=== PATIENT | male | born 1965 | race Caucasian/White ===

== ENCOUNTER 2023-02-18 07:32 | Outpatient (OUT) | payer BC, SELFPAY ==
[2023-02-18 08:20] LABS: Basophils Absolute Auto 0.1 10^3/uL (0.0-0.1); Basophils Percent Auto 1.2 % (0.2-2.0); Eosinophils Absolute Auto 0.4 10^3/uL (0.0-0.7); Eosinophils Percent Auto 5.7 % (0.9-7.0); Hematocrit 41.7 % (42.0-54.0); Hemoglobin 13.8 g/dL (14.0-18.0); Immature Granulocytes Abs Auto 0.01 10^3/uL (0.00-0.03); Immature Granulocytes Pct Auto 0.1 % (0.0-0.5); Lymphocytes Absolute Auto 2.6 10^3/uL (1.2-3.8); Lymphocytes Percent Auto 37.1 % (20.5-60.0); Mean Corpuscular HGB Conc 33.1 g/dL (29.9-35.2); Mean Corpuscular Hemoglobin 29.7 pg (25.9-34.0); Mean Corpuscular Volume 89.9 fL (80.0-94.0); Monocytes Absolute Auto 0.6 10^3/uL (0.3-0.8); Monocytes Percent Auto 8.1 % (1.7-12.0); Neutrophils Absolute Auto 3.3 10^3/uL (1.4-6.5); Neutrophils Percent Auto 47.8 % (43.0-75.0); Platelet Count 288 10^3/uL (150-450); Red Blood Count 4.64 10^6/uL (4.70-6.10); Red Cell Distribution Width 13.2 % (11.0-15.0); White Blood Count 6.9 10^3/uL (4.0-11.0)
[2023-02-18 08:26] LABS: Erythrocyte Sedimentation Rate 12 mm/hr (<=20)
[2023-02-18 09:12] LABS: Alanine Aminotransferase 16 U/L (16-63); Albumin Level 3.6 g/dL (3.4-5.0); Alkaline Phosphatase 76 U/L (46-116); Anion Gap 9.3; Aspartate Amino Transferase 11 U/L (15-37); BUN Creatinine Ratio 23.5; Bilirubin Total 0.5 mg/dL (0.2-1.0); Calcium 8.8 mg/dL (8.5-10.1); Carbon Dioxide 27.8 mmol/L (21.0-32.0); Chloride 105 mmol/L (98-107); Chol HDL Ratio 3.5; Cholesterol 175 mg/dL (<=200); Creatine Kinase 90 U/L (39-308); Estimated GFR (African America >60 (>=60); Estimated GFR (Non-African Ame >60 (>=60); Free T3 2.53 pg/mL (2.18-3.98); Globulin 3.5 g/dL; Glucose 101 mg/dL (74-106); HDL Cholesterol 50 mg/dL (40-60); LDL Cholesterol Calculated 113.4 mg/dL; Potassium 4.1 mmol/L (3.5-5.1); Sodium 138 mmol/L (136-145); Total Protein 7.1 g/dL (6.4-8.2); Triglycerides 58 mg/dL (<=150); VLDL CHOLESTEROL 11.6 mg/dL
[2023-02-18 09:52] LABS: Prostate Specific Antigen Scrn 0.18 ng/mL (<=4.00)
[2023-02-19 08:08] LABS: Testosterone 592 ng/dL (264-916)
== END 2023-02-18 07:33 | disposition home or self-care (01) ==
PROVIDERS: PCP Nurse Practitioner; Visit Provider Nurse Practitioner
DX: I10 Essential (primary) hypertension (principal); R53.83 Other fatigue; Z12.5 Encounter for screening for malignant neoplasm of prostate; R20.2 Paresthesia of skin
CPT/HCPCS: 36415; 80053; 80061; 81001; 82550; 82607; 82728; 83540; 84403; 84443; 84481; 85025; 85652; G0103

== ENCOUNTER 2023-09-09 09:43 | Outpatient (OUT) | payer BC, SELFPAY ==
[2023-09-09 09:59] LABS: Basophils Absolute Auto 0.1 10^3/uL (0.0-0.1); Eosinophils Absolute Auto 0.6 10^3/uL (0.0-0.7); Eosinophils Percent Auto 5.9 % (0.9-7.0); Hemoglobin 14.1 g/dL (14.0-18.0); Immature Granulocytes Abs Auto 0.02 10^3/uL (0.00-0.03); Immature Granulocytes Pct Auto 0.2 % (0.0-0.5); Lymphocytes Absolute Auto 3.5 10^3/uL (1.2-3.8); Lymphocytes Percent Auto 34.1 % (20.5-60.0); Mean Corpuscular HGB Conc 32.8 g/dL (29.9-35.2); Mean Corpuscular Hemoglobin 30.3 pg (25.9-34.0); Mean Corpuscular Volume 92.5 fL (80.0-94.0); Mean Platelet Volume 9.5 fL (9.5-13.5); Monocytes Absolute Auto 0.8 10^3/uL (0.3-0.8); Monocytes Percent Auto 7.3 % (1.7-12.0); Neutrophils Absolute Auto 5.3 10^3/uL (1.4-6.5); Neutrophils Percent Auto 51.5 % (43.0-75.0); Platelet Count 329 10^3/uL (150-450); Red Blood Count 4.65 10^6/uL (4.70-6.10); Red Cell Distribution Width 12.8 % (11.0-15.0); White Blood Count 10.2 10^3/uL (4.0-11.0)
[2023-09-09 10:07] LABS: Bilirubin Urine SMALL (NEGATIVE); Blood Urine NEGATIVE (NEGATIVE); Clarity Urine CLEAR (CLEAR); Color Urine DK. YELLOW (YELLOW); Glucose Urine UA NEGATIVE (NEGATIVE); Ketones Urine 15 mg/dL (NEGATIVE); Nitrite Urine NEGATIVE (NEGATIVE); Protein Urine 30 mg/dL (NEG/TRACE); Specific Gravity Urine 1.025 (1.005-1.025); pH Urine 6.5 (5.0-9.0)
[2023-09-09 10:08] LABS: Leukocyte Esterase Urine NEGATIVE (NEGATIVE)
[2023-09-09 10:09] LABS: Urine Microscopic Indicated YES
[2023-09-09 10:23] LABS: Bacteria Urine TRACE #/HPF (NONE SEEN); Cast Seen? SEEN #/LPF (NONE SEEN); Crystals Seen? None Seen #/HPF (None Seen); Mucus Urine MODERATE (NONE SEEN); RBC Urine NONE SEEN #/HPF (0-2); Squamous Epithelial Cell Urine FEW #/LPF (NONE/RARE); WBC Urine NONE SEEN #/HPF (NONE SEEN)
[2023-09-09 10:24] LABS: Hyaline Casts Urine RARE
[2023-09-09 11:06] LABS: Alanine Aminotransferase 18 U/L (16-63); Albumin Globulin Ratio 0.9; Albumin Level 3.4 g/dL (3.4-5.0); Alkaline Phosphatase 85 U/L (46-116); Anion Gap 11.4; Aspartate Amino Transferase 11 U/L (15-37); BUN Creatinine Ratio 15.5; Bilirubin Total 0.3 mg/dL (0.2-1.0); Calcium 8.7 mg/dL (8.5-10.1); Carbon Dioxide 31.4 mmol/L (21.0-32.0); Chloride 103 mmol/L (98-107); Estimated GFR (African America >60 (>=60); Estimated GFR (Non-African Ame >60 (>=60); Globulin 3.9 g/dL; Glucose 86 mg/dL (74-106); Potassium 3.8 mmol/L (3.5-5.1); Sodium 142 mmol/L (136-145); Total Protein 7.3 g/dL (6.4-8.2)
== END 2023-09-09 09:44 | disposition home or self-care (01) ==
LOC: LAB 09:45
PROVIDERS: PCP Nurse Practitioner; Visit Provider Nurse Practitioner
DX: N40.1 Benign prostatic hyperplasia with lower urinary tract symptoms (principal); R39.12 Poor urinary stream; I10 Essential (primary) hypertension; Z72.0 Tobacco use
CPT/HCPCS: 36415; 80053; 81001; 85025

== ENCOUNTER 2023-10-29 21:33 | Emergency (ER) | payer BC, SELFPAY ==
[2023-10-29 21:36] VITALS: BP 165/93; PULSE 69; TEMP 36.8; O2SAT 99; BMI 24.8
--- OUTSIDE RECORDS SUMMARY | 2023-10-29 21:39 | XMS_ITS | CCD ---
Author Organization [facility] Care Team Providers Care Chips Screen Tender Name Role Phone Supriya Brown Unavailable AICTHERON, RADHA SHAISTA Primary Care Unavailable MARKER ., DR KELLER Attending Unavailable MARKER ., DR KELLER Admitting Unavailable AICHHOLZ, RADHA SHAISTA Primary Care Unavailable CHRISTINA STEVENS Consulting Unavailable JENIFER ., MERI Attending Unavailable JENIFER ., MERI Admitting Unavailable SKYE WOODS Consulting Unavailable CHERI .CATRACHITO Consulting Unavailable AICHHOLZ, TICKET AGENT SHAISTA Primary Care Unavailable CHRISTINA STEVENS Attending Unavailable CHRISTINA STEVENS Admitting Unavailable LORI RODRIGUEZ Consulting Unavailable AICHHOLZ, TICKET AGENT SHAISTA Primary Care Unavailable MIKKI .VASILE Attending Unavailable MIKKI VASILE Glaser Consulting Unavailable MIKKI .MICKID Admitting Unavailable LORI DOWNEY Consulting Unavailable MERI SIMPSON Consulting Unavailable Shaista Corona Primary Care Provider MD Derek Alex Admit Provider MD Sanjay Holt Other Provider MD Reginald Arroyo Other Provider [phone] MD Rubi Ramos Attending Provider [phone] MARLO Silva Emergency Provider MARLO Gay Attending Provider [phone] Ismael Huitron Unavailable Gregg PATTEN Attending Unavailable Gregg PATTEN Attending Unavailable Rosa CORTEZ Attending Unavailable Gregg PATTEN Attending Unavailable Shaista Corona Primary Care Provider DARLINE Garcia Emergency Provider SHAISTA CORONA Attending Unavailable Ej Garcia Attending Unavailable Ej Garcia Admitting Unavailable Shaista Corona Primary Care Unavailable Shaista Corona Primary Care Unavailable DeidraAntoniEvi Attending Unavailable Deidra, Evi Admitting Unavailable Sanjay Holt Consulting Unavailable Derek Alex Admitting Unavailable Rubi Ramos Attending Unavailable Shaista Corona Primary Care Unavailable Reginald Arroyo Consulting Unavaila Lisha Herr Attending Unavailable Lisha Silva Admitting Unavailable Shaista Corona Primary Care Unavailable Allergies Allergy Classification Reported Allergen(s) Allergy Type Date of Onset Reaction(s) Facility (1 source) Azithromycin Drug Allergy Unknown [facility] boolino Other (3 sources) Penicillin; Translations: [penicillin] Drug Allergy Unknown [facility] (1 source) Azithromycin Drug Allergy [facility] (5 sources) Erythromycin Drug Allergy 3 Rash [facility] (1 source) E.E.S. Drug allergy (disorder) 3 [facility] (5 sources) Penicillins; Translations: [Penicillins] Allergy to substance 3 Anaphylaxis [facility] (1 source) Erythromycin Drug Allergy rash [facility] boolino Other (1 source) erythromycin base Drug allergy (disorder) 4 [facility] Repository Medications Current Medications Medication Drug Class(es) Dates Sig (Normalized) Sig (Original) [id number] 200 actuat albuterol 0.09 mg/actuat metered dose inhaler (2 sources) beta2-Adrenergic Agonist Start: 07-07-2022 take 2 puff(s) by inhalation every four hours as needed Albuterol Sulfate HFA 108 (90 Base) MCG/ACT 2 puffs as needed Inhalation every 4 hrs Jun, Active amLODIPine 10 mg oral tablet (6 sources) Dihydropyridine Calcium Channel Sarika Start: 11-05-2022 take 10 mg by mouth once daily Amlodipine Active 10 MG PO Daily November 04, 2022 11:00pm amLODIPine Besyl ate Active buprenorphine 8 mg / naloxone 2 mg sublingual film (4 sources) Partial Opioid Agonist, Opioid Antagonist Start: 11-05-2022 Buprenorphine-Naloxo ne Active 0.5 FILM SUBLINGUAL Q24H November 04, 2022 11:00pm Start: 11-05-2022 Buprenorphine- Naloxone Active 0.5 FILM SUBLINGUAL Twice daily November 05, 2022 12:00am Buprenorphine HCl-Naloxone HCl (2 sources) Buprenorphine HCl-Naloxone HCl Active carvedilol 25 mg oral tablet (10 sources) alpha-Adrenergic Sarika, beta-Adrenergic Sarika Start: 3 End: 3 take 25 mg by mouth twice daily Carvedilol Active 25 MG PO Twice daily November 21, 2022 10:50am Carvedilol Activ e dextromethorphan hydrobromide 3 mg/ml / promethazine hydrochloride 1.25 mg/ml oral solution (1 source) Phenothiazine, Uncompetitive K-mcvsmh-Q-aspartate Receptor Antagonist, Sigma-1 Agonist Start: 07-31-2023 take 1 mL by mouth every six hours Promethazine-Dm Active 5 ML PO Q6H July 31, 2023 12:00am diclofenac sodium 50 mg delayed release oral tablet (6 sources) Nonsteroidal Anti-inflammatory Drug Start: 11-05-2022 take 50 mg by mouth three times daily Diclofenac Sodium Active 50 MG PO Three times daily November 04, 2022 11:00pm Diclofenac Activ e doxycycline monohydrate 100 mg oral capsule (1 source) Tetracycline-class Drug Start: 07-07-2022 take 1 capsule by mouth every twelve hours Doxycycline Monohydrate 100 MG 1 capsule Orally every 12 hrs for 7 days Jun, Active FLUoxetine 20 mg oral capsule (10 sources) Serotonin Reuptake Inhibitor Start: 11-05-2022 take 20 mg by mouth once daily Fluoxetine Active 20 MG PO Daily November 04, 2022 11:00pm Start: 11-05-2022 take 40 mg by mouth at bedtime Fluoxetine Active 40 MG PO Bedtime November 04, 2022 11:00pm Fluoxetine Activ e lisinopril 40 mg oral tablet (10 sources) Angiotensin Converting Enzyme Inhibitor Start: 11-21-2022 take 20 mg by mouth once daily Lisinopril Active 20 MG PO Daily November 21, 2022 10:50am Start: 11-05-2022 End: 11-21-2022 take 40 mg by mouth once daily Lisinopril Discontinued 40 MG PO Daily November 04, 2022 11:00pm November 21, 2022 10:55am Lisinopril Activ e methylPREDNISolone 4 mg oral tablet (1 source) Corticosteroid Start: 07-07-2022 methylPREDNISolone 4 MG as directed Orally Once a day for 6 days Jun, Active naproxen 500 mg oral tablet (1 source) Nonsteroidal Anti-inflammatory Drug Start: 07-31-2023 take 1 tablet by mouth twice daily Naproxen (Naprosyn) 500 mg tablet Active 500 MG PO Twice daily July 31, 2023 12:00am oseltamivir 75 mg oral capsule (1 source) Neuraminidase Inhibitor Start: 07-31-2023 take 1 capsule by mouth twice daily Oseltamivir (Tamiflu) 75 mg capsule Active 75 MG PO Twice daily 10 July 31, 2023 12:00am tiZANidine 4 mg oral tablet (8 sources) Central alpha-2 Adrenergic Agonist Start: 11-16-2022 take 8 mg by mouth once daily at bedtime Tizanidine Active 8 MG PO Daily at bedtime November 15, 2022 11:00pm Start: 11-05-2022 take 4 mg by mouth twice daily Tizanidine Active 4 MG PO Twice daily November 04, 2022 11:00pm Completed/Discontinued Medications Medication Drug Class(es) Dates Sig (Normalized) Sig (Original) linezolid 600 mg oral tablet (4 sources) Oxazolidinone Antibacterial Start: 11-21-2022 End: 07-31-2023 take 600 mg by mouth twice daily Linezolid Discontinued 600 MG PO Twice daily 14 November 20, 2022 11:00pm July 31, 2023 7:39pm Problems Active Problems Problem Classification Problem Date Documented Date Episodic/Chronic Anxiety disorders (1 source) Anxiety disorder, unspecified; Translations: [ANXIETY DISORDER UNSPECIFIED] Onset: 08-29-2022 Chronic Chronic obstructive pulmonary disease and bronchiectasis (1 source) Chronic obstructive pulmonary disease, unspecified; Translations: [COPD UNSPECIFIED] Onset: 08-29-2022 Chronic Chronic obstructive pulmonary disease and bronchiectasis (1 source) Bronchitis, not specified as acute or chronic Episodic Essential hypertension (8 sources) Hypertensive disorder; Translations: [Essential (primary) hypertension] Onset: 11-05-2022 11-05-2022 Chronic Hyperplasia of prostate (1 source) Benign prostatic hyperplasia without lower urinary tract symptoms; Translations: [BENIGN PROSTATIC HYPRPLASIA WO LUTS] Onset: 08-29-2022 Chronic Immunizations and screening for infectious disease (2 sources) Contact with and (suspected) exposure to other viral communicable diseases; Translations: [Contact with and (suspected) exposure to other viral communicable diseases] Episodic Influenza (1 source) Influenza due to Influenza A virus; Translations: [Influenza due to other identified influenza virus with other respiratory manifestations] 07-31-2023 Episodic Osteoarthritis (5 sources) Bilateral primary osteoarthritis of knee; Translations: [Arthritis] Onset: 03-16-2022 11-05-2022 Chronic Other aftercare (1 source) 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; Translations: [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 DRUG THERAPY] Onset: 08-29-2022 Episodic Other lower respiratory disease (1 source) Personal history of other diseases of the respiratory system Episodic Other upper respiratory infections (1 source) Acute upper respiratory infection, unspecified; Translations: [ACUTE UP RESPIRATORY INFECTION UNS] Onset: 08-29-2022 Episodic Otitis media and related conditions (1 source) Otitis media, unspecified, right ear Episodic Residual codes; unclassified (4 sources) Procedure and treatment not carried out due to patient leaving prior to being seen by health care provider; Translations: [PROC AND TX NOT CARRIED OUT PT LEAVE] Onset: 11-03-2022 Episodic Spondylosis; intervertebral disc disorders; other back problems (3 sources) Backache; Translations: [Dorsalgia, unspecified] 12-08-2022 Episodic Substance-related disorders (12 sources) Nicotine dependence, cigarettes, uncomplicated; Translations: [Nicotine dependence] Onset: 08-29-2022 11-05-2022 Chronic Unclassified (2 sources) COUGH, UNSPECIFIED; Translations: [COUGH, UNSPECIFIED] Onset: 08-29-2022 Unclassified (1 source) CONTACT W/AND (SUSP) EXPOS COVID-19; Translations: [CONTACT W/AND (SUSP) EXPOS COVID-19] Onset: 08-29-2022 Unclassified (1 source) PERSONAL HISTORY OF COVID-19; Translations: [PERSONAL HISTORY OF COVID-19] Onset: 08-29-2022 Unclassified (1 source) Cough, unspecified; Translations: [Cough, unspecified] Onset: 07-31-2023 Unclassified (1 source) Other low back pain; Translations: [Other low back pain] Onset: 12-08-2022 Past or Other Problems Problem Classification Problem Date Documented Date Episodic/Chronic Fever of unknown origin (8 sources) Fever; Translations: [Fever, unspecified] Onset: 11-05-2022 11-10-2022 Episodic Lymphadenitis (8 sources) Hilar lymphadenopathy ; Translations: [Localized enlarged lymph nodes] Onset: 11-05-2022 11-05-2022 Episodic Other connective tissue disease (4 sources) Pain in left leg; Translations: [PAIN IN LEFT LEG] Onset: 03-12-2022 Episodic Pleurisy; pneumothorax; pulmonary collapse (17 sources) Tension pneumothorax; Translations: [Spontaneous tension pneumothorax] Onset: 11-05-2022 11-08-2022 Episodic Pneumonia (except that caused by tuberculosis or sexually transmitted disease) (9 sources) Community acquired pneumonia; Translations: [Pneumonia, unspecified organism] Onset: 12-26-2022 11-05-2022 Episodic Respiratory failure; insufficiency; arrest (adult) (8 sources) Acute hypoxemic respiratory failure; Translations: [Acute respiratory failure with hypoxia] Onset: 11-05-2022 11-05-2022 Episodic Unclassified (1 source) COUGH, UNSPECIFIED; Translations: [COUGH, UNSPECIFIED] Onset: 08-27-2022 Viral infection (8 sources) Parainfluenza; Translations: [Other viral infections of unspecified site] Onset: 11-05-2022 11-06-2022 Episodic Viral infection (1 source) COVID-19 Results Test Name Value Interpretation Reference Range Facility COVID CepheidOrdered By: Aamir Garcia on 07-31-2023 SARS-CoV-2 (COVID-19) Ab IA Ql Negative Negative [facility] Comment on above: This is a duplicate [employer] Xpert Xpress CoV-2/Flu/RSV Plus RNA by RT-PCR result to be used for statistical tracking purpose only. SARS-CoV-2 (COVID-19) RNA ROWENA+probe Ql (Unsp spec) [facility] COVID-19 / Flu A/B / RSV PCR on 07-31-2023 SARS-CoV-2 (COVID-19) RNA ROWENA+probe Ql (Unsp spec) Normal [facility] Comment on above: Performed By: #### C OVID19 FLU RSV, CEPHEID NEG ####[facility] [id number] [place] [address] [facility] Cepheid COVID PCR Negativeon 07-31-2023 SARS-CoV-2 (COVID-19) RNA ROWENA+probe Ql (Unsp spec) Negative Normal Negative [facility] Comment on above: Result Comment: This is a duplicate Cepheid Xpert Xpress CoV-2/Flu/RSV Plus RNA by RT-PCR result to be used for statistical tracking purpose only.PERFORMED BY:[place] [id number] [place] [id number] MEDICAL DIRECTORNATI LAUREN M.D. Performed By: #### C OVID19 FLU RSV, CEPHEID NEG ####[facility] [id number] [place] [address] [facility] [place] 05-23-2023 Consent [id number]#1.00TIFF [facility] Registrationon 05-23-2023 Registration [id number]#1.00TIFF [facility] XR chest 2V*on 12-26-2022 XR chest 2V* [facility] [place] 12-15-2022 Consent [id number]#1.00CD:1 27 [facility] In office Testingon 12-16-19 23 In office Testing [id number]#1.00CD:12 7 [facility] Registrationon 12-15-2022 Registration [id number]#1.00CD:1 27 [facility] Activated partial thrombopla stin time (aPTT) in platelet poor plasma by coagulation aOrdered By: Lisha Silva on 12-08-2022 aPTT Coag (PPP) [Time] 23.5 s 25.1-36.5 [facility] Automated erythrocytes count in urine sediment (number/area)Ordered By: Lisha Silva on 12-08-2022 RBC Auto (Urine sed) [#/Area] 1-2 [HPF] 0-4 [facility] Automated leukocytes count i n urine sediment (number/area)Ordered By: Lisha Silva on 12-08-2022 WBC Auto (Urine sed) [#/Area] None seen [HPF] 0-4 [facility] B-Type Natriuretic Peptideon 12-08-2022 Natriuretic peptide B (Bld) [Mass/Vol] 22.0 pg/mL Normal 5-100 [facility] Comment on above: Result Comment: PERF ORMED BY:[address] [place], [place] [id number] MEDICAL DIRECTORNATI LAUREN M.D. Performed By: #### H S TROP, CBC, BMP, BNP, DDIMER, PT, PTT ####[place] [id number] [facility] Basic Metabolic Panelon Anion gap [Moles/Vol] 10.9 mmol/L Normal 6.0-15.0 [facility] Comment on above: Performed By: #### H S TROP, CBC, BMP, BNP, DDIMER, PT, PTT ####[place] [id number] [facility] Calcium [Mass/Vol] 8.6 mg/dL Normal 8.6-10.3 [facility] Comment on above: Performed By: #### H S TROP, CBC, BMP, BNP, DDIMER, PT, PTT ####[place] [id number] [facility] Chloride [Moles/Vol] 105 mmol/L Normal 98-107 [facility] Comment on above: Performed By: #### H S TROP, CBC, BMP, BNP, DDIMER, PT, PTT ####[facility] [place] [address] [facility] CO2 [Moles/Vol] 28.0 mmol/L Normal 21.0-31.0 [facility] Comment on above: Performed By: #### H S TROP, CBC, BMP, BNP, DDIMER, PT, PTT ####[place] [id number] [place] [address] [facility] Creatinine [Mass/Vol] 0.53 mg/dL Low 0.70-1.30 [facility] Comment on above: Performed By: #### H S TROP, CBC, BMP, BNP, DDIMER, PT, PTT ####[place] [id number] [place] [address] [facility] Creatinine Clr Calc Pharmacy 188.22 [facility] Comment on above: Result Comment: PERF ORMED BY:[address] [place], [place] [phone] MEDICAL DIRECTORNATI LAUREN M.D. Performed By: #### H S TROP, CBC, BMP, BNP, DDIMER, PT, PTT ####[place] [id number] [place] [address] [facility] GFR/1.73 sq M.predicted MDRD (S/P/Bld) [Vol rate/Area] mL/min/{1.73_m2} [facility] Comment on above: Performed By: #### H S TROP, CBC, BMP, BNP, DDIMER, PT, PTT ####[place] [id number] [place] [address] [facility] Glucose [Mass/Vol] 99 mg/dL Normal 70-100 [facility] Comment on above: Result Comment: [place] Glucose Reference Range is dependent on time and content of last meal. Glucose of more than 200 mg/dL in a nonstressed, ambulatory subject supports the diagnosis of Diabetes Mellitus. ADA recommended reference range Performed By: #### H S TROP, CBC, BMP, BNP, DDIMER, PT, PTT ####[place] [id number] [place] [address] [facility] Potassium [Moles/Vol] 3.9 mmol/L Normal 3.5-5.1 [facility] Comment on above: Performed By: #### H S TROP, CBC, BMP, BNP, DDIMER, PT, PTT ####[facility] [id number] Sodium [Moles/Vol] 140 mmol/L Normal 136-145 [facility] Comment on above: Performed By: #### H S TROP, CBC, BMP, BNP, DDIMER, PT, PTT ####[facility] [id number] Urea nitrogen [Mass/Vol] 11 mg/dL Normal 7-25 [facility] Comment on above: Performed By: #### H S TROP, CBC, BMP, BNP, DDIMER, PT, PTT ####[facility] Basophils Auto (Bld) [#/Vol] Ordered By: Lisha Silva on 12-08-2022 Basophils (Bld) [#/Vol] 0.2 10*3/uL 0.0-0.2 [facility] Basophils/100 WBC Auto (Bld) Ordered By: Lisha Silva on 12-08-2022 Basophils/100 WBC (Bld) 2.6 % . [facility] Bilirubin Test strip Ql (U)O rdered By: Lisha Silva on 12-08-2022 Bilirubin Ql (U) Negative Negative [facility] CT angio chest PE protocolon 12-08-2022 CT angio chest PE protocol Normal [facility] Calcium [Mass/volume] in Ser um or PlasmaOrdered By: Lisha Silva on 12-08-2022 Calcium [Mass/Vol] 8.6 mg/dL 8.6-10.3 [facility] Carbon dioxide, total [Moles /volume] in Serum or PlasmaOrdered By: Lisha Silva on 12-08-2022 CO2 [Moles/Vol] 28.0 mmol/L 21.0-31.0 [facility] Chloride [Moles/volume] in S thang or PlasmaOrdered By: Lisah Silva on 12-08-2022 Chloride [Moles/Vol] 105 mmol/L 98-107 [facility] Color Auto (U)Ordered By: Khadijah Silva on 12-08-2022 Color (U) Yellow Yellow [facility] Complete Blood Count Auto Di ffon 12-08-2022 Basophils (Bld) [#/Vol] 0.2 10*3/uL Normal 0.0-0.2 [facility] Comment on above: Result Comment: PERF ORMED BY:[address] [place], [place] [phone] MEDICAL DIRECTORNATI LAUREN M.D. Performed By: #### H S TROP, CBC, BMP, BNP, DDIMER, PT, PTT ####[address] Basophils/100 WBC (Bld) 2.6 % Normal . [facility] Comment on above: Performed By: #### H S TROP, CBC, BMP, BNP, DDIMER, PT, PTT ####[address] Eosinophils (Bld) [#/Vol] 0.3 10*3/uL Normal 0.0-0.45 [facility] Comment on above: Performed By: #### H S TROP, CBC, BMP, BNP, DDIMER, PT, PTT ####[address] Eosinophils/100 WBC (Bld) 3.8 % Normal . [facility] Comment on above: Performed By: #### H S TROP, CBC, BMP, BNP, DDIMER, PT, PTT ####[address] Erythrocyte distribution width (RBC) [Ratio] 14.8 % Normal 12.0-14.8 [facility] Comment on above: Performed By: #### H S TROP, CBC, BMP, BNP, DDIMER, PT, PTT ####[address] Hematocrit (Bld) [Volume fraction] 35.8 % Low 38.8-50.0 [facility] Comment on above: Performed By: #### H S TROP, CBC, BMP, BNP, DDIMER, PT, PTT ####[address] Hemoglobin (Bld) [Mass/Vol] 12.0 g/dL Low 13.0-17.0 [facility] Comment on above: Performed By: #### H S TROP, CBC, BMP, BNP, DDIMER, PT, PTT ####[address] Lymphocytes (Bld) [#/Vol] 3.7 10*3/uL Normal 1.00-4.8 [facility] Comment on above: Performed By: #### H S TROP, CBC, BMP, BNP, DDIMER, PT, PTT ####[address] Lymphocytes/100 WBC (Bld) 48.0 % Normal . [facility] Comment on above: Performed By: #### H S TROP, CBC, BMP, BNP, DDIMER, PT, PTT ####[address] MCH (RBC) [Entitic mass] 30.4 pg Normal 27.5-35.2 [facility] Comment on above: Performed By: #### H S TROP, CBC, BMP, BNP, DDIMER, PT, PTT ####[address] MCV (RBC) [Entitic vol] 90.4 fL Normal 83.5-101 [facility] Comment on above: Performed By: #### H S TROP, CBC, BMP, BNP, DDIMER, PT, PTT ####[address] Mean Corpuscular HGB Conc 33.6 g/dL Normal 32.5-35.6 [facility] Comment on above: Performed By: #### H S TROP, CBC, BMP, BNP, DDIMER, PT, PTT ####[place] [address] [place] Monocytes (Bld) [#/Vol] 0.7 10*3/uL Normal 0.0-0.8 [facility] Comment on above: Performed By: #### H S TROP, CBC, BMP, BNP, DDIMER, PT, PTT ####[address] Monocytes/100 WBC (Bld) 21.84 % High 0.00-20.00 [facility] Comment on above: Result Comment: For adults in ED, MDW > 20.0 may be associated with a higher risk of sepsis during the first 12 hrs of hospital admission Performed By: #### H S TROP, CBC, BMP, BNP, DDIMER, PT, PTT ####[address] Monocytes/100 WBC (Bld) 9.6 % Normal . [facility] Comment on above: Performed By: #### H S TROP, CBC, BMP, BNP, DDIMER, PT, PTT ####[address] Neutrophils (Bld) [#/Vol] 2.7 10*3/uL Normal 1.8-7.7 [facility] Comment on above: Performed By: #### H S TROP, CBC, BMP, BNP, DDIMER, PT, PTT ####[address] Neutrophils/100 WBC (Bld) 36.0 % Normal . [facility] Comment on above: Performed By: #### H S TROP, CBC, BMP, BNP, DDIMER, PT, PTT ####[address] NRBC% 0.1 /100{WBC} Normal 0-0.5 [facility] Comment on above: Performed By: #### H S TROP, CBC, BMP, BNP, DDIMER, PT, PTT ####[address] Platelet mean volume (Bld) [Entitic vol] 7.6 fL Normal 6.6-10.1 [facility] Comment on above: Performed By: #### H S TROP, CBC, BMP, BNP, DDIMER, PT, PTT ####[facility] Platelets (Bld) [#/Vol] 299 10*3/uL Normal 150-450 [facility] Comment on above: Performed By: #### H S TROP, CBC, BMP, BNP, DDIMER, PT, PTT ####[place] [id number] RBC (Bld) [#/Vol] 3.96 10*6/uL Normal 3.90-5.60 [facility] Comment on above: Performed By: #### H S TROP, CBC, BMP, BNP, DDIMER, PT, PTT ####[facility] WBC (Bld) [#/Vol] 7.6 10*3/uL Normal 4.1-10.5 [facility] Comment on above: Performed By: #### H S TROP, CBC, BMP, BNP, DDIMER, PT, PTT ####[facility] Creatinine [Mass/volume] in Serum or PlasmaOrdered By: Lisha Silva on 12-08-2022 Creatinine [Mass/Vol] 0.53 mg/dL 0.70-1.30 [facility] D-Dimer High Sensitivityon 0 12-08-2022 D-Dimer High Sensitivity 435 ng/mL High 0-243 [facility] Comment on above: Result Comment: The reference range for D-dimer is <243 ng/mL D-dimer units. D-dimer results must be used in conjunction with a clinical pretest probability (PTP) assessment model for deep vein thrombosis (DVT) and pulmonary embolism (PE). Results <230 ng/mL d-dimer units can be used as a negative predictor in patients with low or moderate probability for DVT/PE. Results above the exclusion threshold of 230 ng/ml D-dimer units for DVT/PE may indicate the need for further diagnostic testing. D-Dimer can be increased in hospitalized patients due to co-morbid conditions.PERFORMED BY:[facility] [place], [place] [phone] MEDICAL ALEKSANDAR LAUREN M.D. Performed By: #### H S TROP, CBC, BMP, BNP, DDIMER, PT, PTT ####[address] [address] [facility] Dipstick and Microscopicon 0 12-08-2022 Appearance (U) Clear Normal Clear [facility] Comment on above: Order Comment: Name Collection Type:: Clean-Voided Midstream Performed By: #### A DDONUAPLUS ####[address] [address] [facility] Bacteria,Urine None Seen Normal None Seen [facility] Comment on above: Order Comment: Name Collection Type:: Clean-Voided Midstream Performed By: #### A DDONUAPLUS ####[address] [address] [facility] Bilirubin,Urine Negative Normal Negative [facility] Comment on above: Order Comment: Name Collection Type:: Clean-Voided Midstream Performed By: #### A DDONUAPLUS ####[address] [address] [facility] Color (U) Yellow Normal Yellow [facility] Comment on above: Order Comment: Name Collection Type:: Clean-Voided Midstream Performed By: #### A DDONUAPLUS ####[address] [address] [facility] Glucose Ql (U) Normal Normal Normal [facility] Comment on above: Order Comment: Name Collection Type:: Clean-Voided Midstream Performed By: #### A DDONUAPLUS ####[address] [address] [facility] Hyaline Casts,Urine 0-8 Normal 0-8 [facility] Comment on above: Order Comment: Name Collection Type:: Clean-Voided Midstream Result Comment: PERF ORMED BY:[address] [place], [place] [id number] MEDICAL DIRECTORNATI LAUREN M.D. Performed By: #### A DDONUAPLUS ####[address] [address] [facility] Ketones Ql (U) Negative Normal Negative [facility] Comment on above: Order Comment: Name Collection Type:: Clean-Voided Midstream Performed By: #### A DDONUAPLUS ####[address] [address] [facility] Leukocyte esterase Test strip Ql (U) Negative Normal Negative [facility] Comment on above: Order Comment: Name Collection Type:: Clean-Voided Midstream Performed By: #### A DDONUAPLUS ####[address] [address] [facility] Nitrite,Urine Negative Normal Negative [facility] Comment on above: Order Comment: Name Collection Type:: Clean-Voided Midstream Performed By: #### A DDONUAPLUS ####[address] [address] [facility] Occult Blood,Urine Trace High Negative [facility] Comment on above: Order Comment: Name Collection Type:: Clean-Voided Midstream Result Comment: PERF ORMED BY:[address] [place], [place] [id number] MEDICAL DIRECTORNATI LAUREN M.D. Performed By: #### A DDONUAPLUS ####[address] [address] [facility] pH (U) 6.5 [pH] Normal 5.0-9.0 [facility] Comment on above: Order Comment: Name Collection Type:: Clean-Voided Midstream Performed By: #### A DDONUAPLUS ####[address] [address] [facility] Protein,Urine Negative Normal Negative [facility] Comment on above: Order Comment: Name Collection Type:: Clean-Voided Midstream Performed By: #### A DDONUAPLUS ####[address] [address] [facility] RBC,Urine 1-2 Normal 0-4 [facility] Comment on above: Order Comment: Name Collection Type:: Clean-Voided Midstream Performed By: #### A DDONUAPLUS ####[address] [address] [facility] Specificy Dow,Urine 1.040 High 1.001-1.03 0 [facility] Comment on above: Order Comment: Name Collection Type:: Clean-Voided Midstream Performed By: #### A DDONUAPLUS ####[address] [address] [facility] Squamous Epithelial Cell,Urine None Seen Normal 0-2 [facility] Comment on above: Order Comment: Name Collection Type:: Clean-Voided Midstream Performed By: #### A DDONUAPLUS ####[address] [address] [facility] Urobilinogen,Urine Normal Normal Normal [facility] Comment on above: Order Comment: Name Collection Type:: Clean-Voided Midstream Performed By: #### A DDONUAPLUS ####[address] [address] [facility] WBC,Urine None Seen Normal 0-4 [facility] Comment on above: Order Comment: Name Collection Type:: Clean-Voided Midstream Performed By: #### A DDONUAPLUS ####[address] [address] [facility] ECG 12 lead ECGon 12-08-2022 ECG 12 lead ECG Normal [facility] Eosinophils Auto (Bld) [#/Vo l]Ordered By: Lisha Silva on 12-08-2022 Eosinophils (Bld) [#/Vol] 0.3 10*3/uL 0.0-0.45 [facility] Eosinophils/100 WBC Auto (Bl d)Ordered By: Lisha Silva on 12-08-2022 Eosinophils/100 WBC (Bld) 3.8 % . [facility] Erythrocyte distribution wid th Auto (RBC) [Ratio]Ordered By: Lisha Silva on 12-08-2022 Erythrocyte distribution width (RBC) [Ratio] 14.8 % 12.0-14.8 [facility] Glucose [Mass/volume] in Ser um or PlasmaOrdered By: Lisha Silva on 12-08-2022 Glucose [Mass/Vol] 99 mg/dL 70-100 [facility] Comment on above: ADA recommended refe rence rangeRandom Glucose Reference Range is dependent on time and content of last meal. Glucose of more than 200 mg/dL in a nonstressed, ambulatory subject supports the diagnosis of Diabetes Mellitus. Hematocrit Auto (Bld) [Volum e fraction]Ordered By: Lisha Silva on 12-08-2022 Hematocrit (Bld) [Volume fraction] 35.8 % 38.8-50.0 [facility] Hemoglobin [Mass/volume] in BloodOrdered By: Lisha Silva on 12-08-2022 Hemoglobin (Bld) [Mass/Vol] 12.0 g/dL 13.0-17.0 [facility] Ketones Auto test strip (U) [Mass/Vol]Ordered By: Lisha Silva on 12-08-2022 Ketones (U) [Mass/Vol] Negative Negative [facility] Laboratory - CoagulationOrde red By: Lisha Silva on 12-08-2022 PT Coag (PPP) [Time] 12.6 s 9.0-12.9 [facility] Laboratory - UrinalysisOrder ed By: Lisha Silva on 12-08-2022 Hyaline casts LM Ql (Urine sed) 0-8 [LPF] 0-8 [facility] Leukocytes [#/volume] correc wiliam for nucleated erythrocytes in Blood by Automated counOrdered By: Lisha Silva on 12-08-2022 WBC corrected for nucl RBC Auto (Bld) [#/Vol] 7.6 10*3/uL 4.1-10.5 [facility] Lymphocytes Auto (Bld) [#/Vo l]Ordered By: Lisha Silva on 12-08-2022 Lymphocytes (Bld) [#/Vol] 3.7 10*3/uL 1.00-4.8 [facility] Lymphocytes/100 WBC Auto (Bl d)Ordered By: Lisha Silva on 12-08-2022 Lymphocytes/100 WBC (Bld) 48.0 % . [facility] MCH Auto (RBC) [Entitic mass ]Ordered By: Lisha Silva on 12-08-2022 MCH (RBC) [Entitic mass] 30.4 pg 27.5-35.2 [facility] MCHC Auto (RBC) [Mass/Vol]Or dered By: Lisha iSlva on 12-08-2022 MCHC (RBC) [Mass/Vol] 33.6 g/dL 32.5-35.6 [facility] MCV Auto (RBC) [Entitic vol] Ordered By: Lisha Silva on 12-08-2022 MCV (RBC) [Entitic vol] 90.4 fL 83.5-101 [facility] Monocyte distribution width [Entitic volume] in Blood by AutomatedOrdered By: Lisha Silva on 12-08-2022 Monocyte distribution width Auto (Bld) [Entitic vol] 21.84 % 0.00-20.00 [facility] Comment on above: For adults in ED, MD W > 20.0 may be associated with a higher risk of sepsis during the first 12 hrs of hospital admission Monocytes Auto (Bld) [#/Vol] Ordered By: Lisha Silva on 12-08-2022 Monocytes (Bld) [#/Vol] 0.7 10*3/uL 0.0-0.8 [facility] Monocytes/100 WBC Auto (Bld) Ordered By: Lisha Silva on 12-08-2022 Monocytes/100 WBC (Bld) 9.6 % . [facility] Natriuretic peptide B [Mass/ Vol]Ordered By: Lisha Silva on 12-08-2022 Natriuretic peptide B (Bld) [Mass/Vol] 22.0 pg/mL 5-100 [facility] Neutrophils Auto (Bld) [#/Vo l]Ordered By: Lisha Silva on 12-08-2022 Neutrophils (Bld) [#/Vol] 2.7 10*3/uL 1.8-7.7 [facility] Neutrophils/100 WBC Auto (Bl d)Ordered By: Lisha Silva on 12-08-2022 Neutrophils/100 WBC (Bld) 36.0 % . [facility] Nitrite Test strip Ql (U)Ord ered By: Lisha Silva on 12-08-2022 Nitrite Ql (U) Negative Negative [facility] No Panel InformationOrdered By: Lisha Silva on 12-08-2022 D-Dimer Quantitative (PE/DVT) 435 ng/mL 0-243 [facility] Comment on above: The reference range for D-dimer is <243 ng/mL D-dimer units.D-dimer results must be used in conjunction with a clinicalpretest probability (PTP) assessment model for deep veinthrombosis (DVT) and pulmonary embolism (PE). Results <230ng/mL d-dimer units can be used as a negative predictor inpatients with low or moderate probability for DVT/PE.Results above the exclusion threshold of 230 ng/ml D-dimerunits for DVT/PE may indicate the need for furtherdiagnostic testing.D-Dimer can be increased in hospitalized patients due toco-morbid conditions. Estimated GFR (CKD-EPI) > 60.0 mL/Min [facility] Creatinine Clearance (Chem 188.22 [facility] Nucleated erythrocytes [Pres ence] in Blood by Automated countOrdered By: Lisha Silva on 12-08-2022 Nucleated RBC Auto Ql (Bld) 0.1 /100{WBC} 0-0.5 [facility] Partial Thromboplastin Timeo n 12-08-2022 aPTT Coag (Bld) [Time] 23.5 s Low 25.1-36.5 [facility] Comment on above: Performed By: #### H S TROP, CBC, BMP, BNP, DDIMER, PT, PTT ####[facility] [id number] [facility] Platelet mean volume Auto (B ld) [Entitic vol]Ordered By: Lisha Silva on 12-08-2022 Platelet mean volume (Bld) [Entitic vol] 7.6 fL 6.6-10.1 [facility] Platelet poor plasma interna tional normalized ratio (INR) by coagulation assay (relatOrdered By: Lisha Silva on 12-08-2022 INR Coag (PPP) [Relative time] 1.1 {INR} [facility] Comment on above: INR Therapeutic Rang e A) Pre- and Peroperative OAT started two weeks before surgery. NOT HIP SURGERY: 1.5 - 2.5 HIP SURGERY: 2 - 3B) Primary and secondary prevention of venous THROMBOSIS: 2 - 3C) Active venous thrombosis, pulmonary embolismand prevention of recurrent venous thrombosis: 2 - 3D) Prevention of arterial thromboembolismincluding patients with mechanical heart valves: 3 - 4.5 Platelets Auto (Bld) [#/Vol] Ordered By: Lisha Silva on 12-08-2022 Platelets (Bld) [#/Vol] 299 10*3/uL 150-450 [facility] Potassium [Moles/volume] in Serum or PlasmaOrdered By: Lisha Silva on 12-08-2022 Potassium [Moles/Vol] 3.9 mmol/L 3.5-5.1 [facility] Protein Auto test strip (U) [Mass/Vol]Ordered By: Lisha Silva on 12-08-2022 Protein (U) [Mass/Vol] Negative Negative [facility] Prothrombin Time INRon 12-08 INR Coag (PPP) [Relative time] 1.1 {INR} Normal [facility] Comment on above: Result Comment: INR Therapeutic Range A) Pre- and Peroperative OAT started two weeks before surgery. NOT HIP SURGERY: 1.5 - 2.5 HIP SURGERY: 2 - 3 B) Primary and secondary prevention of venous THROMBOSIS: 2 - 3 C) Active venous thrombosis, pulmonary embolism and prevention of recurrent venous thrombosis: 2 - 3 D) Prevention of arterial thromboembolism including patients with mechanical heart valves: 3 - 4.5 Performed By: #### H S TROP, CBC, BMP, BNP, DDIMER, PT, PTT ####[facility] [id number] PT Coag (PPP) [Time] 12.6 s Normal 9.0-12.9 [facility] Comment on above: Performed By: #### H S TROP, CBC, BMP, BNP, DDIMER, PT, PTT ####[facility] [id number] [id number] [facility] RBC Auto (Bld) [#/Vol]Ordere d By: Lisha Silva on 12-08-2022 RBC (Bld) [#/Vol] 3.96 10*6/uL 3.90-5.60 [facility] Serum or plasma anion gap de terminationOrdered By: Lisha Silva on 12-08-2022 Anion gap [Moles/Vol] 10.9 mmol/L 6.0-15.0 [facility] Sodium [Moles/volume] in Ser um or PlasmaOrdered By: Lisha Silva on 12-08-2022 Sodium [Moles/Vol] 140 mmol/L 136-145 [facility] Specific gravity Auto test s trip (U) [Rel density]Ordered By: Lisha Silva on 12-08-2022 Specific gravity (U) [Rel density] 1.040 1.001-1.03 0 [facility] Squamous epithelial cells de tection in urine sediment by light microscopyOrdered By: Lisha Silva on 12-08-2022 Epithelial cells.squamous LM Ql (Urine sed) None seen [HPF] 0-2 [facility] Troponin I High Sensitivityo n 12-08-2022 Troponin I High Sensitivity 3.7 pg/mL Normal 0.0-20.0 [facility] Comment on above: Result Comment: PERF ORMED BY:[facility] [place], [place] [phone] MEDICAL DIRECTORNATI LAUREN M.D. Performed By: #### H S TROP, CBC, BMP, BNP, DDIMER, PT, PTT ####[facility] [id number] [place] [address] [facility] Troponin I.cardiac [Mass/vol ume] in Serum or Plasma by Detection limit <= 0.01 ng/Ordered By: Lisha Silva on 12-08-2022 Troponin I.cardiac DL <= 0.01 ng/mL [Mass/Vol] 3.7 pg/mL 0.0-20.0 [facility] Urea nitrogen [Mass/volume] in Serum or PlasmaOrdered By: Lisha Silva on 12-08-2022 Urea nitrogen [Mass/Vol] 11 mg/dL 7-25 [facility] Urine bacteria detection by automated methodOrdered By: Lisha Silva on 12-08-2022 Bacteria Auto Ql (U) None seen None Seen [facility] Urine clarity by refractomet ry automatedOrdered By: Lisha Silva on 12-08-2022 Clarity Refractometry automated (U) Clear Clear [facility] Urine glucose measurement by automated test strip (mass/volume)Ordered By: Lisha Silva on 12-08-2022 Glucose Auto test strip (U) [Mass/Vol] Normal mg/dL Normal [facility] Urine hemoglobin detection b y automated test stripOrdered By: Lisha Silva on 12-08-2022 Hemoglobin Auto test strip Ql (U) Trace Negative [facility] Urine leukocyte esterase det ection by automated test stripOrdered By: Lisha Silva on 12-08-2022 Leukocyte esterase Auto test strip Ql (U) Negative Negative [facility] Urobilinogen Auto test strip (U) [Mass/Vol]Ordered By: Lisha Silva on 12-08-2022 Urobilinogen (U) [Mass/Vol] Normal mg/dL Normal [facility] WBC Auto (Bld) [#/Vol]Ordere d By: Lisha Silva on 12-08-2022 WBC (Bld) [#/Vol] 7.6 10*3/uL 4.1-10.5 [facility] pH Auto test strip (U)Ordere d By: Lisha Silva on 12-08-2022 pH (U) 6.5 [pH] 5.0-9.0 [facility] Alanine aminotransferase [En zymatic activity/volume] in Serum or PlasmaOrdered By: Shant Villegas on 11-21-2022 ALT [Catalytic activity/Vol] 40 U/L 7-52 [facility] Albumin [Mass/volume] in Ser um or Plasma by Bromocresol green (BCG) dye binding methoOrdered By: Shant Villegas on 11-21-2022 Albumin BCG dye [Mass/Vol] 2.3 g/dL 3.5-5.7 [facility] Alkaline phosphatase [Enzyma tic activity/volume] in Serum or PlasmaOrdered By: Shant Villegas on 11-21-2022 ALP [Catalytic activity/Vol] 110 U/L 34-104 [facility] Aspartate aminotransferase [ Enzymatic activity/volume] in Serum or PlasmaOrdered By: Shant Villegas on 11-21-2022 AST [Catalytic activity/Vol] 25 U/L 13-39 [facility] Basophils Auto (Bld) [#/Vol] Ordered By: Evi Gay on 11-21-2022 Basophils (Bld) [#/Vol] 0.1 10*3/uL 0.0-0.2 [facility] Basophils/100 WBC Auto (Bld) Ordered By: Evi Gay on 11-21-2022 Basophils/100 WBC (Bld) 1.4 % . [facility] Bilirubin.total [Mass/volume ] in Serum or PlasmaOrdered By: Shant Villegas on 11-21-2022 Bilirubin [Mass/Vol] 0.4 mg/dL 0.3-1.0 [facility] Calcium [Mass/volume] in Ser um or PlasmaOrdered By: Shant Villegas on 11-21-2022 Calcium [Mass/Vol] 8.1 mg/dL 8.6-10.3 [facility] Carbon dioxide, total [Moles /volume] in Serum or PlasmaOrdered By: Shant Villegas on 11-21-2022 CO2 [Moles/Vol] 31.0 mmol/L 21.0-31.0 [facility] Chloride [Moles/volume] in S thang or PlasmaOrdered By: Shant Villegas on 11-21-2022 Chloride [Moles/Vol] 105 mmol/L 98-107 [facility] Complete Blood Count Auto Di ffon 11-21-2022 Basophils (Bld) [#/Vol] 0.1 10*3/uL Normal 0.0-0.2 [facility] Comment on above: Result Comment: PERF ORMED BY:[facility] [place], [place] [phone] MEDICAL DIRECTORNATI LAUREN M.D. Performed By: #### C ####[facility] [place] [address] [facility] Basophils/100 WBC (Bld) 1.4 % Normal . [facility] Comment on above: Performed By: #### C BC ####[address] Eosinophils (Bld) [#/Vol] 0.3 10*3/uL Normal 0.0-0.45 [facility] Comment on above: Performed By: #### C BC ####[address] Eosinophils/100 WBC (Bld) 3.7 % Normal . [facility] Comment on above: Performed By: #### C BC ####[address] Erythrocyte distribution width (RBC) [Ratio] 13.8 % Normal 12.0-14.8 [facility] Comment on above: Performed By: #### C BC ####[address] Hematocrit (Bld) [Volume fraction] 25.0 % Low 38.8-50.0 [facility] Comment on above: Performed By: #### C BC ####[address] Hemoglobin (Bld) [Mass/Vol] 8.4 g/dL Low 13.0-17.0 [facility] Comment on above: Performed By: #### C BC ####[address] Lymphocytes (Bld) [#/Vol] 2.2 10*3/uL Normal 1.00-4.8 [facility] Comment on above: Performed By: #### C BC ####[address] Lymphocytes/100 WBC (Bld) 28.3 % Normal . [facility] Comment on above: Performed By: #### C BC ####[address] MCH (RBC) [Entitic mass] 30.2 pg Normal 27.5-35.2 [facility] Comment on above: Performed By: #### C BC ####[address] [place] [address] [facility] MCV (RBC) [Entitic vol] 89.8 fL Normal 83.5-101 [facility] Comment on above: Performed By: #### C BC ####[address] [address] [facility] Mean Corpuscular HGB Conc 33.6 g/dL Normal 32.5-35.6 [facility] Comment on above: Performed By: #### C BC ####[address] [address] [facility] Monocytes (Bld) [#/Vol] 0.8 10*3/uL Normal 0.0-0.8 [facility] Comment on above: Performed By: #### C BC ####[address] [address] [facility] Monocytes/100 WBC (Bld) 10.5 % Normal . [facility] Comment on above: Performed By: #### C BC ####[address] [address] [facility] Neutrophils (Bld) [#/Vol] 4.4 10*3/uL Normal 1.8-7.7 [facility] Comment on above: Performed By: #### C BC ####[address] [address] [facility] Neutrophils/100 WBC (Bld) 56.1 % Normal . [facility] Comment on above: Performed By: #### C BC ####[address] [address] [facility] NRBC% 0.2 /100{WBC} Normal 0-0.5 [facility] Comment on above: Performed By: #### C BC ####[address] [address] [facility] Platelet mean volume (Bld) [Entitic vol] 7.2 fL Normal 6.6-10.1 [facility] Comment on above: Performed By: #### C BC ####[address] [address] [place] [address] [facility] Platelets (Bld) [#/Vol] 486 10*3/uL High 150-450 [facility] Comment on above: Performed By: #### C BC ####[address] [address] [facility] RBC (Bld) [#/Vol] 2.78 10*6/uL Low 3.90-5.60 [facility] Comment on above: Performed By: #### C BC ####[address] [address] [facility] WBC (Bld) [#/Vol] 7.9 10*3/uL Normal 4.1-10.5 [facility] Comment on above: Performed By: #### C BC ####[address] [address] [facility] Comprehensive Metabolic Pane tiago 11-21-2022 Albumin [Mass/Vol] 2.3 g/dL Low 3.5-5.7 [facility] Comment on above: Performed By: #### C MP, MG ####[id number] [facility] Albumin/Globulin [Mass ratio] 0.7 {ratio} Normal [facility] Comment on above: Performed By: #### C MP, MG ####[address] [address] [facility] ALP [Catalytic activity/Vol] 110 U/L High 34-104 [facility] Comment on above: Performed By: #### C MP, MG ####[address] [address] [facility] ALT [Catalytic activity/Vol] 40 U/L Normal 7-52 [facility] Comment on above: Performed By: #### C MP, MG ####[id number] [facility] Anion gap [Moles/Vol] 8.7 mmol/L Normal 6.0-15.0 [facility] Comment on above: Performed By: #### C MP, MG ####[facility] [place] [address] [facility] AST [Catalytic activity/Vol] 25 U/L Normal 13-39 [facility] Comment on above: Performed By: #### C MP, MG ####[facility] [place] [address] [facility] Bilirubin [Mass/Vol] 0.4 mg/dL Normal 0.3-1.0 [facility] Comment on above: Performed By: #### C MP, MG ####[address] [place] [address] [facility] Calcium [Mass/Vol] 8.1 mg/dL Low 8.6-10.3 [facility] Comment on above: Performed By: #### C MP, MG ####[address] [place] [address] [facility] Chloride [Moles/Vol] 105 mmol/L Normal 98-107 [facility] Comment on above: Performed By: #### C MP, MG ####[address] [place] [address] [facility] CO2 [Moles/Vol] 31.0 mmol/L Normal 21.0-31.0 [facility] Comment on above: Performed By: #### C MP, MG ####[address] [place] [address] [facility] Creatinine [Mass/Vol] 0.43 mg/dL Low 0.70-1.30 [facility] Comment on above: Performed By: #### C MP, MG ####[address] [place] [address] [facility] Creatinine Clr Calc Pharmacy 231.99 [facility] Comment on above: Performed By: #### C MP, MG ####[address] [place] [address] [place] GFR/1.73 sq M.predicted MDRD (S/P/Bld) [Vol rate/Area] mL/min/{1.73_m2} [facility] Comment on above: Performed By: #### C MP, MG ####[address] [place] [id number] [facility] Globulin (S) [Mass/Vol] 3.4 g/dL Normal [facility] Comment on above: Performed By: #### C MP, MG ####[id number] [facility] Glucose [Mass/Vol] 105 mg/dL High 70-100 [facility] Comment on above: Result Comment: [place] Glucose Reference Range is dependent on time and content of last meal. Glucose of more than 200 mg/dL in a nonstressed, ambulatory subject supports the diagnosis of Diabetes Mellitus. ADA recommended reference range Performed By: #### C MP, MG ####[place] [id number] [facility] Potassium [Moles/Vol] 3.7 mmol/L Normal 3.5-5.1 [facility] Comment on above: Performed By: #### C MP, MG ####[id number] [facility] Protein [Mass/Vol] 5.7 g/dL Low 6.4-8.9 [facility] Comment on above: Performed By: #### C MP, MG ####[id number] [facility] Sodium [Moles/Vol] 141 mmol/L Normal 136-145 [facility] Comment on above: Performed By: #### C MP, MG ####[place] [id number] [facility] Urea nitrogen [Mass/Vol] 11 mg/dL Normal 7-25 [facility] Comment on above: Performed By: #### C MP, MG ####[place] [id number] [facility] Creatinine [Mass/volume] in Serum or PlasmaOrdered By: Shant Villegas on 11-21-2022 Creatinine [Mass/Vol] 0.43 mg/dL 0.70-1.30 [facility] Eosinophils Auto (Bld) [#/Vo l]Ordered By: Evi Gay on 11-21-2022 Eosinophils (Bld) [#/Vol] 0.3 10*3/uL 0.0-0.45 [facility] Eosinophils/100 WBC Auto (Bl d)Ordered By: Evi Gay on 11-21-2022 Eosinophils/100 WBC (Bld) 3.7 % . [facility] Erythrocyte distribution wid th Auto (RBC) [Ratio]Ordered By: Evi Gay on 11-21-2022 Erythrocyte distribution width (RBC) [Ratio] 13.8 % 12.0-14.8 [facility] Globulin Calc (S) [Mass/Vol] Ordered By: Shant Villegas on 11-21-2022 Globulin (S) [Mass/Vol] 3.4 g/dL [facility] Glucose [Mass/volume] in Ser um or PlasmaOrdered By: Shant Villegas on 11-21-2022 Glucose [Mass/Vol] 105 mg/dL 70-100 [facility] Comment on above: ADA recommended refe rence rangeRandom Glucose Reference Range is dependent on time and content of last meal. Glucose of more than 200 mg/dL in a nonstressed, ambulatory subject supports the diagnosis of Diabetes Mellitus. Hematocrit Auto (Bld) [Volum e fraction]Ordered By: Evi Gay on 11-21-2022 Hematocrit (Bld) [Volume fraction] 25.0 % 38.8-50.0 [facility] Hemoglobin [Mass/volume] in BloodOrdered By: Evi Gay on 11-21-2022 Hemoglobin (Bld) [Mass/Vol] 8.4 g/dL 13.0-17.0 [facility] Leukocytes [#/volume] correc wiliam for nucleated erythrocytes in Blood by Automated counOrdered By: Evi Gay on 11-21-2022 WBC corrected for nucl RBC Auto (Bld) [#/Vol] 7.9 10*3/uL 4.1-10.5 [facility] Lymphocytes Auto (Bld) [#/Vo l]Ordered By: Evi Gay on 11-21-2022 Lymphocytes (Bld) [#/Vol] 2.2 10*3/uL 1.00-4.8 [facility] Lymphocytes/100 WBC Auto (Bl d)Ordered By: Evi Deidra on 11-21-2022 Lymphocytes/100 WBC (Bld) 28.3 % . [facility] MCH Auto (RBC) [Entitic mass ]Ordered By: Evi Deidra on 11-21-2022 MCH (RBC) [Entitic mass] 30.2 pg 27.5-35.2 [facility] MCHC Auto (RBC) [Mass/Vol]Or dered By: Evi Deidra on 11-21-2022 MCHC (RBC) [Mass/Vol] 33.6 g/dL 32.5-35.6 [facility] MCV Auto (RBC) [Entitic vol] Ordered By: Evi Deidra on 11-21-2022 MCV (RBC) [Entitic vol] 89.8 fL 83.5-101 [facility] Magnesiumon 11-21-2022 Magnesium [Mass/Vol] 1.8 mg/dL Low 1.9-2.7 [facility] Comment on above: Result Comment: PERF ORMED BY:[facility] [place], [place] [phone] MEDICAL DIRECTORNATI LAUREN M.D. Performed By: #### C MP, MG ####[facility] [place] [place] [id number] [facility] Magnesium [Mass/volume] in S thang or PlasmaOrdered By: Shatn Villegas on 11-21-2022 Magnesium [Mass/Vol] 1.8 mg/dL 1.9-2.7 [facility] Monocytes Auto (Bld) [#/Vol] Ordered By: Evi Deidra on 11-21-2022 Monocytes (Bld) [#/Vol] 0.8 10*3/uL 0.0-0.8 [facility] Monocytes/100 WBC Auto (Bld) Ordered By: Evi Deidra on 11-21-2022 Monocytes/100 WBC (Bld) 10.5 % . [facility] Neutrophils Auto (Bld) [#/Vo l]Ordered By: Evi Deidra on 11-21-2022 Neutrophils (Bld) [#/Vol] 4.4 10*3/uL 1.8-7.7 [facility] Neutrophils/100 WBC Auto (Bl d)Ordered By: Evi Deidra on 11-21-2022 Neutrophils/100 WBC (Bld) 56.1 % . [facility] No Panel InformationOrdered By: Shant Villegas on 11-21-2022 Estimated GFR (CKD-EPI) > 60.0 mL/Min [facility] Creatinine Clearance (Chem 231.99 [facility] Nucleated erythrocytes [Pres ence] in Blood by Automated countOrdered By: Evi Gay on 11-21-2022 Nucleated RBC Auto Ql (Bld) 0.2 /100{WBC} 0-0.5 [facility] Platelet mean volume Auto (B ld) [Entitic vol]Ordered By: Evi Gay on 11-21-2022 Platelet mean volume (Bld) [Entitic vol] 7.2 fL 6.6-10.1 [facility] Platelets Auto (Bld) [#/Vol] Ordered By: Evi Gay on 11-21-2022 Platelets (Bld) [#/Vol] 486 10*3/uL 150-450 [facility] Potassium [Moles/volume] in Serum or PlasmaOrdered By: Shant Villegas on 11-21-2022 Potassium [Moles/Vol] 3.7 mmol/L 3.5-5.1 [facility] Protein [Mass/volume] in Ser um or PlasmaOrdered By: Shant Villegas on 11-21-2022 Protein [Mass/Vol] 5.7 g/dL 6.4-8.9 [facility] RBC Auto (Bld) [#/Vol]Ordere d By: Evi Gay on 11-21-2022 RBC (Bld) [#/Vol] 2.78 10*6/uL 3.90-5.60 [facility] Serum or plasma albumin/glob ulin mass ratioOrdered By: Shant Villegas on 11-21-2022 Albumin/Globulin [Mass ratio] 0.7 {ratio} [facility] Serum or plasma anion gap de terminationOrdered By: Shant Villegas on 11-21-2022 Anion gap [Moles/Vol] 8.7 mmol/L 6.0-15.0 [facility] Sodium [Moles/volume] in Ser um or PlasmaOrdered By: Shant Villegas on 11-21-2022 Sodium [Moles/Vol] 141 mmol/L 136-145 [facility] Urea nitrogen [Mass/volume] in Serum or PlasmaOrdered By: Shant Villegas on 11-21-2022 Urea nitrogen [Mass/Vol] 11 mg/dL 7-25 [facility] WBC Auto (Bld) [#/Vol]Ordere d By: Evi Gay on 11-21-2022 WBC (Bld) [#/Vol] 7.9 10*3/uL 4.1-10.5 [facility] Complete Blood Count Auto Di ffon 11-20-2022 Basophils (Bld) [#/Vol] 0.1 10*3/uL Normal 0.0-0.2 [facility] Comment on above: Result Comment: PERF ORMED BY:[address] [place] [phone] MEDICAL DIRECTORNATI LAUREN M.D. Performed By: #### C BC ####[address] Basophils/100 WBC (Bld) 1.0 % Normal . [facility] Comment on above: Performed By: #### C BC ####[place] [id number] [facility] Eosinophils (Bld) [#/Vol] 0.2 10*3/uL Normal 0.0-0.45 [facility] Comment on above: Performed By: #### C BC ####[place] [id number] [facility] Eosinophils/100 WBC (Bld) 2.2 % Normal . [facility] Comment on above: Performed By: #### C BC ####[place] [id number] [facility] Erythrocyte distribution width (RBC) [Ratio] 13.7 % Normal 12.0-14.8 [facility] Comment on above: Performed By: #### C BC ####[place] [id number] [place] Hematocrit (Bld) [Volume fraction] 29.6 % Low 38.8-50.0 [facility] Comment on above: Performed By: #### C BC ####[address] Hemoglobin (Bld) [Mass/Vol] 9.8 g/dL Low 13.0-17.0 [facility] Comment on above: Performed By: #### C BC ####[address] Lymphocytes (Bld) [#/Vol] 1.9 10*3/uL Normal 1.00-4.8 [facility] Comment on above: Performed By: #### C BC ####[address] Lymphocytes/100 WBC (Bld) 18.5 % Normal . [facility] Comment on above: Performed By: #### C BC ####[address] MCH (RBC) [Entitic mass] 29.5 pg Normal 27.5-35.2 [facility] Comment on above: Performed By: #### C BC ####[address] MCV (RBC) [Entitic vol] 89.4 fL Normal 83.5-101 [facility] Comment on above: Performed By: #### C BC ####[address] Mean Corpuscular HGB Conc 33.0 g/dL Normal 32.5-35.6 [facility] Comment on above: Performed By: #### C BC ####[address] Monocytes (Bld) [#/Vol] 1.0 10*3/uL High 0.0-0.8 [facility] Comment on above: Performed By: #### C BC ####[address] Monocytes/100 WBC (Bld) 9.9 % Normal . [facility] Comment on above: Performed By: #### C BC ####[place] [id number] [facility] Neutrophils (Bld) [#/Vol] 6.9 10*3/uL Normal 1.8-7.7 [facility] Comment on above: Performed By: #### C BC ####[place] [id number] [facility] Neutrophils/100 WBC (Bld) 68.4 % Normal . [facility] Comment on above: Performed By: #### C BC ####[address] NRBC% 0.1 /100{WBC} Normal 0-0.5 [facility] Comment on above: Performed By: #### C BC ####[address] Platelet mean volume (Bld) [Entitic vol] 7.5 fL Normal 6.6-10.1 [facility] Comment on above: Performed By: #### C BC ####[place] [id number] [facility] Platelets (Bld) [#/Vol] 434 10*3/uL Normal 150-450 [facility] Comment on above: Performed By: #### C BC ####[place] [id number] [facility] RBC (Bld) [#/Vol] 3.31 10*6/uL Low 3.90-5.60 [facility] Comment on above: Performed By: #### C BC ####[place] [id number] [facility] WBC (Bld) [#/Vol] 10.0 10*3/uL Normal 4.1-10.5 [facility] Comment on above: Performed By: #### C BC ####[place] [id number] [facility] Comprehensive Metabolic Pane tiago 11-20-2022 Albumin [Mass/Vol] 2.4 g/dL Low 3.5-5.7 [facility] Comment on above: Performed By: #### C MP, MG ####[place] [id number] [facility] Albumin/Globulin [Mass ratio] 0.7 {ratio} Normal [facility] Comment on above: Performed By: #### C MP, MG ####[place] [id number] [facility] ALP [Catalytic activity/Vol] 118 U/L High 34-104 [facility] Comment on above: Performed By: #### C MP, MG ####[place] [phone] [facility] ALT [Catalytic activity/Vol] 47 U/L Normal 7-52 [facility] Comment on above: Performed By: #### C MP, MG ####[place] [id number] [facility] Anion gap [Moles/Vol] 10.6 mmol/L Normal 6.0-15.0 [facility] Comment on above: Performed By: #### C MP, MG ####[place] [id number] [facility] AST [Catalytic activity/Vol] 21 U/L Normal 13-39 [facility] Comment on above: Performed By: #### C MP, MG ####[place] [id number] [facility] Bilirubin [Mass/Vol] 0.6 mg/dL Normal 0.3-1.0 [facility] Comment on above: Performed By: #### C MP, MG ####[place] [id number] [facility] Calcium [Mass/Vol] 8.2 mg/dL Low 8.6-10.3 [facility] Comment on above: Performed By: #### C MP, MG ####[place] [id number] [facility] Chloride [Moles/Vol] 100 mmol/L Normal 98-107 [facility] Comment on above: Performed By: #### C MP, MG ####[place] [id number] CO2 [Moles/Vol] 31.8 mmol/L High 21.0-31.0 [facility] Comment on above: Performed By: #### C MP, MG ####[place] [id number] Creatinine [Mass/Vol] 0.35 mg/dL Low 0.70-1.30 [facility] Comment on above: Performed By: #### C MP, MG ####[place] [id number] Creatinine Clr Calc Pharmacy 285.02 [facility] Comment on above: Performed By: #### C MP, MG ####[place] [id number] GFR/1.73 sq M.predicted MDRD (S/P/Bld) [Vol rate/Area] mL/min/{1.73_m2} [facility] Comment on above: Performed By: #### C MP, MG ####[address] Globulin (S) [Mass/Vol] 3.6 g/dL [facility] Comment on above: Performed By: #### C MP, MG ####[address] Glucose [Mass/Vol] 89 mg/dL Normal 70-100 [facility] Comment on above: Result Comment: [facility] Glucose Reference Range is dependent on time and content of last meal. Glucose of more than 200 mg/dL in a nonstressed, ambulatory subject supports the diagnosis of Diabetes Mellitus. ADA recommended reference range Performed By: #### C MP, MG ####[facility] Potassium [Moles/Vol] 3.4 mmol/L Low 3.5-5.1 [facility] Comment on above: Performed By: #### C MP, MG ####[place] [id number] [place] [address] [facility] Protein [Mass/Vol] 6.0 g/dL Low 6.4-8.9 [facility] Comment on above: Performed By: #### C MP, MG ####[place] [address] [place] [address] [facility] Sodium [Moles/Vol] 139 mmol/L Normal 136-145 [facility] Comment on above: Performed By: #### C MP, MG ####[place] [id number] [facility] Urea nitrogen [Mass/Vol] 13 mg/dL Normal 7-25 [facility] Comment on above: Performed By: #### C MP, MG ####[address] [address] [facility] Magnesiumon 11-20-2022 Magnesium [Mass/Vol] 1.8 mg/dL Low 1.9-2.7 [facility] Comment on above: Result Comment: PERF ORMED BY:[address], [place] [phone] MEDICAL DIRECTORNATI LAUREN M.D. Performed By: #### C MP, MG ####[place] [phone] [facility] XR chest 2V*on 11-20-2022 XR chest 2V* Normal [facility] Complete Blood Count Auto Di ffon 11-19-2022 Basophils (Bld) [#/Vol] 0.1 10*3/uL Normal 0.0-0.2 [facility] Comment on above: Result Comment: PERF ORMED BY:[place] [address] [place], [place] [phone] MEDICAL DIRECTORNATI LAUREN M.D. Performed By: #### C BC ####[address] [address] [facility] Basophils/100 WBC (Bld) 1.2 % Normal . [facility] Comment on above: Performed By: #### C BC ####[place] [phone] [facility] Eosinophils (Bld) [#/Vol] 0.2 10*3/uL Normal 0.0-0.45 [facility] Comment on above: Performed By: #### C BC ####[place] [id number] [facility] Eosinophils/100 WBC (Bld) 2.0 % Normal . [facility] Comment on above: Performed By: #### C BC ####[place] [id number] [facility] Erythrocyte distribution width (RBC) [Ratio] 13.7 % Normal 12.0-14.8 [facility] Comment on above: Performed By: #### C BC ####[place] [id number] [facility] Hematocrit (Bld) [Volume fraction] 26.0 % Low 38.8-50.0 [facility] Comment on above: Performed By: #### C BC ####[place] [phone] [facility] Hemoglobin (Bld) [Mass/Vol] 8.6 g/dL Low 13.0-17.0 [facility] Comment on above: Performed By: #### C BC ####[place] [id number] [facility] Lymphocytes (Bld) [#/Vol] 2.0 10*3/uL Normal 1.00-4.8 [facility] Comment on above: Performed By: #### C BC ####[place] [id number] [facility] Lymphocytes/100 WBC (Bld) 16.7 % Normal . [facility] Comment on above: Performed By: #### C BC ####[place] [id number] [facility] MCH (RBC) [Entitic mass] 29.3 pg Normal 27.5-35.2 [facility] Comment on above: Performed By: #### C BC ####[address] [place] [address] [place] MCV (RBC) [Entitic vol] 89.0 fL Normal 83.5-101 [facility] Comment on above: Performed By: #### C BC ####[address] Mean Corpuscular HGB Conc 32.9 g/dL Normal 32.5-35.6 [facility] Comment on above: Performed By: #### C BC ####[address] Monocytes (Bld) [#/Vol] 1.1 10*3/uL High 0.0-0.8 [facility] Comment on above: Performed By: #### C BC ####[address] Monocytes/100 WBC (Bld) 9.6 % Normal . [facility] Comment on above: Performed By: #### C BC ####[address] Neutrophils (Bld) [#/Vol] 8.3 10*3/uL High 1.8-7.7 [facility] Comment on above: Performed By: #### C BC ####[address] Neutrophils/100 WBC (Bld) 70.5 % Normal . [facility] Comment on above: Performed By: #### C BC ####[address] NRBC% 0.1 /100{WBC} Normal 0-0.5 [facility] Comment on above: Performed By: #### C BC ####[address] Platelet mean volume (Bld) [Entitic vol] 7.6 fL Normal 6.6-10.1 [facility] Comment on above: Performed By: #### C BC ####[address] Platelets (Bld) [#/Vol] 451 10*3/uL High 150-450 [facility] Comment on above: Performed By: #### C BC ####[place] [id number] [facility] RBC (Bld) [#/Vol] 2.92 10*6/uL Low 3.90-5.60 [facility] Comment on above: Performed By: #### C BC ####[place] [id number] [facility] WBC (Bld) [#/Vol] 11.8 10*3/uL High 4.1-10.5 [facility] Comment on above: Performed By: #### C BC ####[place] [id number] [facility] Comprehensive Metabolic Pane tiago 11-19-2022 Albumin [Mass/Vol] 2.3 g/dL Low 3.5-5.7 [facility] Comment on above: Performed By: #### M Royal, CMP ####[place] [id number] [facility] Albumin/Globulin [Mass ratio] 0.7 {ratio} Normal [facility] Comment on above: Performed By: #### Jayesh Paige, CMP ####[place] [id number] [facility] ALP [Catalytic activity/Vol] 139 U/L High 34-104 [facility] Comment on above: Performed By: #### Jayesh Paige, CMP ####[place] [id number] [facility] ALT [Catalytic activity/Vol] 59 U/L High 7-52 [facility] Comment on above: Performed By: #### M Royal, CMP ####[place] [id number] [facility] Anion gap [Moles/Vol] 9.2 mmol/L Normal 6.0-15.0 [facility] Comment on above: Performed By: #### M Royal, CMP ####[place] [id number] [facility] AST [Catalytic activity/Vol] 28 U/L Normal 13-39 [facility] Comment on above: Performed By: #### Jayesh Paige, CMP ####[place] [id number] [facility] Bilirubin [Mass/Vol] 0.7 mg/dL Normal 0.3-1.0 [facility] Comment on above: Performed By: #### Jayesh Paige, CMP ####[place] [id number] [facility] Calcium [Mass/Vol] 8.0 mg/dL Low 8.6-10.3 [facility] Comment on above: Performed By: #### Jayesh Paige, CMP ####[place] [id number] [facility] Chloride [Moles/Vol] 99 mmol/L Normal 98-107 [facility] Comment on above: Performed By: #### Jayesh Paige, CMP ####[place] [id number] [facility] CO2 [Moles/Vol] 34.0 mmol/L High 21.0-31.0 [facility] Comment on above: Performed By: #### Jayesh Paige, CMP ####[place] [id number] [facility] Creatinine [Mass/Vol] 0.38 mg/dL Low 0.70-1.30 [facility] Comment on above: Performed By: #### Jayesh Paige, CMP ####[place] [id number] [facility] Creatinine Clr Calc Pharmacy 284.27 [facility] Comment on above: Performed By: #### Jayesh Paige, CMP ####[place] [id number] [facility] GFR/1.73 sq M.predicted MDRD (S/P/Bld) [Vol rate/Area] mL/min/{1.73_m2} [facility] Comment on above: Performed By: #### Jayesh Paige, CMP ####[place] [id number] [facility] Globulin (S) [Mass/Vol] 3.5 g/dL Normal [facility] Comment on above: Performed By: #### M G, CMP ####[place] [address] [place] [address] [facility] Glucose [Mass/Vol] 92 mg/dL Normal 70-100 [facility] Comment on above: Result Comment: [place] Glucose Reference Range is dependent on time and content of last meal. Glucose of more than 200 mg/dL in a nonstressed, ambulatory subject supports the diagnosis of Diabetes Mellitus. ADA recommended reference range Performed By: #### M Royal, CMP ####[place] [id number] [place] [address] [facility] Potassium [Moles/Vol] 3.2 mmol/L Low 3.5-5.1 [facility] Comment on above: Performed By: #### Jayesh Paige, CMP ####[place] [address] [place] [address] [facility] Protein [Mass/Vol] 5.8 g/dL Low 6.4-8.9 [facility] Comment on above: Performed By: #### Jayesh Paige, CMP ####[address] [address] [facility] Sodium [Moles/Vol] 139 mmol/L Normal 136-145 [facility] Comment on above: Performed By: #### Jayesh Paige, CMP ####[place] [address] [place] [address] [facility] Urea nitrogen [Mass/Vol] 11 mg/dL Normal 7-25 [facility] Comment on above: Performed By: #### Jayesh G, CMP ####[place] [address] [place] [address] [facility] Magnesiumon 11-19-2022 Magnesium [Mass/Vol] 1.8 mg/dL Low 1.9-2.7 [facility] Comment on above: Result Comment: PERF ORMED BY:[place] [address] [place], [place] [phone] MEDICAL DIRECTORNATI LAUREN M.D. Performed By: #### Jayesh Paige, CMP ####[facility] [place] [address] [facility] Arterial Blood Gason 023 ABG Base Excess 7.9 mmol/L High -3.0-3.0 [facility] Comment on above: Performed By: #### A BG ####Point of Care testing, ABG Frac Inspired O2 40 % [facility] Comment on above: Performed By: #### A BG ####Point of Care testing, ABG Oxygen Content 7.1 mmol/L Normal 6.6-9.7 [facility] Comment on above: Performed By: #### A BG ####Point of Care testing, ABG Oxygen Saturation 95.6 % Normal 95.0-100.0 [facility] Comment on above: Performed By: #### A BG ####Point of Care testing, ABG PCO2 43.5 mm[Hg] Normal 35.0-45.0 [facility] Comment on above: Performed By: #### A BG ####Point of Care testing, ABG PEEP 6 [facility] Comment on above: Performed By: #### A BG ####Point of Care testing, ABG PH 7.49 High 7.35-7.45 [facility] Comment on above: Performed By: #### A BG ####Point of Care testing, ABG PO2 78.1 mm[Hg] Low 80.0-100.0 [facility] Comment on above: Performed By: #### A BG ####Point of Care testing, ABG TV 500 mL [facility] Comment on above: Performed By: #### A BG ####Point of Care testing, CO2 [Moles/Vol] 33.5 mmol/L High 23.0-27.0 [facility] Comment on above: Performed By: #### A BG ####Point of Care testing, HCO3 (Bld) [Moles/Vol] 32.2 mmol/L High 23.0-29.0 [facility] Comment on above: Performed By: #### A BG ####Point of Care testing, Respiratory Critical [facility] Comment on above: Result Comment: Crit ical Value called on: 11/18/2022 at 05:43PERFORMED BY:[place] [address] [place], [place] [phone] MEDICAL DIRECTORNATI LAUREN M.D. Performed By: #### A BG ####Point of Care testing, Set Respiratory Rate 20 [facility] Comment on above: Performed By: #### A BG ####Point of Care testing, VBG Draw Site Right Radial [facility] Comment on above: Performed By: #### A BG ####Point of Care testing, Ventilator Mode AC [facility] Comment on above: Performed By: #### A BG ####Point of Care testing, Comprehensive Metabolic Pane tiago 11-18-2022 Albumin [Mass/Vol] 2.3 g/dL Low 3.5-5.7 [facility] Comment on above: Performed By: #### T RIG, SCAN CBC, MG, CMP ####[facility] [id number] [place] [id number] [facility] Albumin/Globulin [Mass ratio] 0.6 {ratio} [facility] Comment on above: Performed By: #### T RIG, SCAN CBC, MG, CMP ####[facility] [id number] [place] [address] [facility] ALP [Catalytic activity/Vol] 169 U/L High 34-104 [facility] Comment on above: Performed By: #### T RIG, SCAN CBC, MG, CMP ####[facility] [id number] [place] [address] [facility] ALT [Catalytic activity/Vol] 81 U/L High 7-52 [facility] Comment on above: Performed By: #### T RIG, SCAN CBC, MG, CMP ####[facility] [id number] [place] [address] [facility] Anion gap [Moles/Vol] 8.2 mmol/L Normal 6.0-15.0 [facility] Comment on above: Performed By: #### T RIG, SCAN CBC, MG, CMP ####[facility] [id number] [place] [address] [facility] AST [Catalytic activity/Vol] 53 U/L High 13-39 [facility] Comment on above: Performed By: #### T RIG, SCAN CBC, MG, CMP ####[facility] [id number] [place] [address] [facility] Bilirubin [Mass/Vol] 0.5 mg/dL Normal 0.3-1.0 [facility] Comment on above: Performed By: #### T RIG, SCAN CBC, MG, CMP ####[facility] [id number] [place] [address] [facility] Calcium [Mass/Vol] 7.9 mg/dL Low 8.6-10.3 [facility] Comment on above: Performed By: #### T RIG, SCAN CBC, MG, CMP ####[place] [id number] [facility] Chloride [Moles/Vol] 95 mmol/L Low 98-107 [facility] Comment on above: Performed By: #### T RIG, SCAN CBC, MG, CMP ####[place] [address] [place] [address] [facility] CO2 [Moles/Vol] 34.3 mmol/L High 21.0-31.0 [facility] Comment on above: Performed By: #### T RIG, SCAN CBC, MG, CMP ####[place] [id number] [facility] Creatinine [Mass/Vol] 0.39 mg/dL Low 0.70-1.30 [facility] Comment on above: Performed By: #### T RIG, SCAN CBC, MG, CMP ####[place] [address] [place] [address] [facility] Creatinine Clr Calc Pharmacy 276.98 Normal [facility] Comment on above: Performed By: #### T RIG, SCAN CBC, MG, CMP ####[facility] [id number] [place] [address] [facility] GFR/1.73 sq M.predicted MDRD (S/P/Bld) [Vol rate/Area] mL/min/{1.73_m2} Normal [facility] Comment on above: Performed By: #### T RIG, SCAN CBC, MG, CMP ####[place] [id number] [facility] Globulin (S) [Mass/Vol] 3.6 g/dL Normal [facility] Comment on above: Performed By: #### T RIG, SCAN CBC, MG, CMP ####[address] Glucose [Mass/Vol] 115 mg/dL High 70-100 [facility] Comment on above: Result Comment: [facility] Glucose Reference Range is dependent on time and content of last meal. Glucose of more than 200 mg/dL in a nonstressed, ambulatory subject supports the diagnosis of Diabetes Mellitus. ADA recommended reference range Performed By: #### T RIG, SCAN CBC, MG, CMP ####[address] Potassium [Moles/Vol] 3.5 mmol/L Normal 3.5-5.1 [facility] Comment on above: Performed By: #### T RIG, SCAN CBC, MG, CMP ####[place] [id number] [facility] Protein [Mass/Vol] 5.9 g/dL Low 6.4-8.9 [facility] Comment on above: Performed By: #### T RIG, SCAN CBC, MG, CMP ####[place] [id number] [facility] Sodium [Moles/Vol] 134 mmol/L Low 136-145 [facility] Comment on above: Performed By: #### T RIG, SCAN CBC, MG, CMP ####[place] [id number] [facility] Urea nitrogen [Mass/Vol] 15 mg/dL Normal 7-25 [facility] Comment on above: Performed By: #### T RIG, SCAN CBC, MG, CMP ####[place] [id number] [place] Glucose Glucometer (BldC) [M ass/Vol]Ordered By: Shant Villegas on 11-18-2022 Glucose [Mass/Vol] 120 mg/dL [facility] Comment on above: Random Glucose Refer ence Range is dependent on time and content of last meal. Glucose of more than 200 mg/dL in a nonstressed, ambulatory subject supports the diagnosis of Diabetes Mellitus. Glucose Poct Glucometerson 0 11-18-2022 Glucose [Mass/Vol] 120 mg/dL Normal [facility] Comment on above: Result Comment: [place] Glucose Reference Range is dependent on time and content of last meal. Glucose of more than 200 mg/dL in a nonstressed, ambulatory subject supports the diagnosis of Diabetes Mellitus.PERFORMED BY:[facility] [place], [place] [phone] MEDICAL DIRECTORNATI LAUREN M.D. Performed By: #### G LULS ####Point of Care testing, Hypochromia LM Ql (Bld)Order ed By: Evi Gay on 11-18-2022 Hypochromia Ql (Bld) Moderate [facility] Laboratory - Chemistry and C hemistry - challengeOrdered By: Shant Villegas on 11-18-2022 CO2 [Moles/Vol] 33.5 mmol/L 23.0-27.0 [facility] HCO3 (Bld) [Moles/Vol] 32.2 mmol/L 23.0-29.[address] [facility] Magnesiumon 11-18-2022 Magnesium [Mass/Vol] 1.9 mg/dL Normal 1.9-2.7 [facility] Comment on above: Performed By: #### T RIG, SCAN CBC, MG, CMP ####[facility] [address] [place] [address] [facility] No Panel InformationOrdered By: Shant Villegas on 11-18-2022 Arterial Blood Base Excess 7.9 mmol/L -3.0-3.0 [facility] Arterial Blood Oxygen Content 7.1 mmol/L 6.6-9.7 [facility] Arterial Blood Oxygen Saturation 95.6 % 95.0-100.0 [facility] Arterial Blood Partial Pressure CO2 43.5 mm[Hg] 35.0-45.0 [facility] Arterial Blood Partial Pressure O2 78.1 mm[Hg] 80.0-100.0 [facility] Arterial Blood pH 7.49 7.35-7.45 [facility] Blood Gas Critical Value See comment [facility] Comment on above: Critical Value abdi d on: 11/18/2022 at 05:43 Blood Gas PEEP 6 cmH2O [facility] Blood Gas Sample Site Right radial F [facility] Blood Gas Set Respiration Rate 20 [facility] Blood Gas Tidal Volume 500 mL Fi [facility] Blood Gas Ventilator Mode Ac [facility] FiO2 40 % [facility] Platelet adequacy [Presence] in Blood by Light microscopyOrdered By: Evi Gay on 11-18-2022 Platelets LM Ql (Bld) Normal Normal [facility] Platelet morphology finding [Identifier] in BloodOrdered By: Evi Gay on 11-18-2022 Platelet morphology finding Nom (Bld) Normal Normal [facility] Poikilocytosis [Presence] in Blood by Light microscopyOrdered By: Evi Gay on 11-18-2022 Poikilocytosis LM Ql (Bld) Slight [facility] Polychromasia [Presence] in Blood by Light microscopyOrdered By: Evi Gay on 11-18-2022 Polychromasia LM Ql (Bld) Moderate [facility] RBC morphologyOrdered By: Antoni Gay on 11-18-2022 RBC morphology finding Nom (Bld) N/A [facility] Scan and CBCon 11-18-2022 Basophils (Bld) [#/Vol] 0.1 10*3/uL Normal 0.0-0.2 [facility] Comment on above: Performed By: #### T RIG, SCAN CBC, MG, CMP ####[facility] [id number] Basophils/100 WBC (Bld) 0.7 % Normal . [facility] Comment on above: Performed By: #### T RIG, SCAN CBC, MG, CMP ####[facility] [id number] Eosinophils (Bld) [#/Vol] 0.2 10*3/uL Normal 0.0-0.45 [facility] Comment on above: Performed By: #### T RIG, SCAN CBC, MG, CMP ####[address] Eosinophils/100 WBC (Bld) 1.6 % Normal . [facility] Comment on above: Performed By: #### T RIG, SCAN CBC, MG, CMP ####[address] Erythrocyte distribution width (RBC) [Ratio] 13.8 % Normal 12.0-14.8 [facility] Comment on above: Performed By: #### T RIG, SCAN CBC, MG, CMP ####[address] Hematocrit (Bld) [Volume fraction] 25.8 % Low 38.8-50.0 [facility] Comment on above: Performed By: #### T RIG, SCAN CBC, MG, CMP ####[address] Hemoglobin (Bld) [Mass/Vol] 8.6 g/dL Low 13.0-17.0 [facility] Comment on above: Performed By: #### T RIG, SCAN CBC, MG, CMP ####[address] Hypochromasia Moderate Normal [facility] Comment on above: Performed By: #### T RIG, SCAN CBC, MG, CMP ####[address] Lymphocytes (Bld) [#/Vol] 1.6 10*3/uL Normal 1.00-4.8 [facility] Comment on above: Performed By: #### T RIG, SCAN CBC, MG, CMP ####[address] Lymphocytes/100 WBC (Bld) 11.6 % Normal . [facility] Comment on above: Performed By: #### T RIG, SCAN CBC, MG, CMP ####[address] MCH (RBC) [Entitic mass] 29.6 pg Normal 27.5-35.2 [facility] Comment on above: Performed By: #### T RIG, SCAN CBC, MG, CMP ####[address] MCV (RBC) [Entitic vol] 89.0 fL Normal 83.5-101 [facility] Comment on above: Performed By: #### T RIG, SCAN CBC, MG, CMP ####[address] Mean Corpuscular HGB Conc 33.3 g/dL Normal 32.5-35.6 [facility] Comment on above: Performed By: #### T RIG, SCAN CBC, MG, CMP ####[address] Monocytes (Bld) [#/Vol] 1.7 10*3/uL High 0.0-0.8 [facility] Comment on above: Performed By: #### T RIG, SCAN CBC, MG, CMP ####[address] Monocytes/100 WBC (Bld) 12.5 % Normal . [facility] Comment on above: Performed By: #### T RIG, SCAN CBC, MG, CMP ####[address] Neutrophils (Bld) [#/Vol] 10.1 10*3/uL High 1.8-7.7 [facility] Comment on above: Performed By: #### T RIG, SCAN CBC, MG, CMP ####[address] Neutrophils/100 WBC (Bld) 73.6 % Normal . [facility] Comment on above: Performed By: #### T RIG, SCAN CBC, MG, CMP ####[address] NRBC% 0.1 /100{WBC} Normal 0-0.5 [facility] Comment on above: Performed By: #### T RIG, SCAN CBC, MG, CMP ####[address] Platelet Estimate Normal Normal Normal [facility] Comment on above: Performed By: #### T RIG, SCAN CBC, MG, CMP ####[address] Platelet mean volume (Bld) [Entitic vol] 7.7 fL Normal 6.6-10.1 [facility] Comment on above: Performed By: #### T RIG, SCAN CBC, MG, CMP ####[address] Platelet Morphology Normal Normal Normal [facility] Comment on above: Result Comment: PERF ORMED BY:[address] [place], [place] [phone] MEDICAL DIRECTORNATI LAUREN M.D. Performed By: #### T RIG, SCAN CBC, MG, CMP ####[address] Platelets (Bld) [#/Vol] 418 10*3/uL Normal 150-450 [facility] Comment on above: Performed By: #### T RIG, SCAN CBC, MG, CMP ####[address] Poikilocytosis Slight Normal [facility] Comment on above: Performed By: #### T RIG, SCAN CBC, MG, CMP ####[address] Polychromasia Moderate Normal [facility] Comment on above: Performed By: #### T RIG, SCAN CBC, MG, CMP ####[address] RBC (Bld) [#/Vol] 2.90 10*6/uL Low 3.90-5.60 [facility] Comment on above: Performed By: #### T RIG, SCAN CBC, MG, CMP ####[id number] [place] [address] [facility] WBC (Bld) [#/Vol] 13.7 10*3/uL High 4.1-10.5 [facility] Comment on above: Performed By: #### T RIG, SCAN CBC, MG, CMP ####[id number] [place] [id number] [facility] Triglyceride [Mass/volume] i n Serum or PlasmaOrdered By: Evi Gay on 11-18-2022 Triglyceride [Mass/Vol] 146 mg/dL 0-149 [facility] Comment on above: TRIG ATP III CLASSIF ICATIONTRIG less than 150 mg/dL NormalTRIG 150-199 mg/dL Borderline highTRIG 200-500 mg/dL High TRIG greater than 500 mg/dL Very highStandard traceable to the Center for Disease Conrtrol and Prevention (CDC) test method. Triglycerideson 11-18-2022 Triglyceride [Mass/Vol] 146 mg/dL Normal 0-149 [facility] Comment on above: Result Comment: TRIG ATP III CLASSIFICATION TRIG less than 150 mg/dL Normal TRIG 150-199 mg/dL Borderline high TRIG 200-500 mg/dL High TRIG greater than 500 mg/dL Very high Standard traceable to the Center for Disease Conrtrol and Prevention (CDC) test method.PERFORMED BY:[address] [place], [place] [phone] MEDICAL DIRECTORNATI LAUREN M.D. Performed By: #### T RIG, SCAN CBC, MG, CMP ####[id number] [place] [address] [facility] XR chest 1V portableon 11-18 XR chest 1V portable Normal [facility] Aerobic Cultureon 11-17-2022 Aerobic Culture Normal [facility] Comment on above: Performed By: #### G S, AERC ####[id number] [place] [address] [facility] Amylaseon 11-17-2022 Amylase [Catalytic activity/Vol] 16 U/L Low 29-103 [facility] Comment on above: Order Comment: Comme nt please run off blood drawn this morning Performed By: #### L IPASE, CATRACHITO, HEPATIC ####[facility] [id number] [place] [address] [facility] Amylase [Enzymatic activity/ volume] in Serum or PlasmaOrdered By: Evi Gay on 11-17-2022 Amylase [Catalytic activity/Vol] 16 U/L 29-103 [facility] Arterial Blood Gason 023 ABG Base Excess 9.9 mmol/L High -3.0-3.0 [facility] Comment on above: Performed By: #### A BG ####Point of Care testing, ABG Frac Inspired O2 30 % [facility] Comment on above: Performed By: #### A BG ####Point of Care testing, ABG Oxygen Content 5.9 mmol/L Low 6.6-9.7 [facility] Comment on above: Performed By: #### A BG ####Point of Care testing, ABG Oxygen Saturation 89.2 % Low 95.0-100.0 [facility] Comment on above: Performed By: #### A BG ####Point of Care testing, ABG PCO2 42.2 mm[Hg] Normal 35.0-45.0 [facility] Comment on above: Performed By: #### A BG ####Point of Care testing, ABG PEEP 10 [facility] Comment on above: Performed By: #### A BG ####Point of Care testing, ABG PH 7.52 High 7.35-7.45 [facility] Comment on above: Performed By: #### A BG ####Point of Care testing, ABG PO2 54.5 mm[Hg] Low 80.0-100.0 [facility] Comment on above: Performed By: #### A BG ####Point of Care testing, ABG TV 500 mL [facility] Comment on above: Performed By: #### A BG ####Point of Care testing, CO2 [Moles/Vol] 35.0 mmol/L High 23.0-27.0 [facility] Comment on above: Performed By: #### A BG ####Point of Care testing, HCO3 (Bld) [Moles/Vol] 33.7 mmol/L High 23.0-29.0 [facility] Comment on above: Performed By: #### A BG ####Point of Care testing, Respiratory Critical [facility] Comment on above: Result Comment: Crit ical Value called on: 11/17/2022 at 04:38PERFORMED BY:[facility] [place], [place] [phone] MEDICAL DIRECTORNATI LAUREN M.D. Performed By: #### A BG ####Point of Care testing, Set Respiratory Rate 20 [facility] Comment on above: Performed By: #### A BG ####Point of Care testing, VBG Draw Site Right Radial [facility] Comment on above: Performed By: #### A BG ####Point of Care testing, Ventilator Mode AC [facility] Comment on above: Performed By: #### A BG ####Point of Care testing, Bacteria identified Aer cx N om (Unsp spec)Ordered By: Sanjay Holt on 11-17-2022 Aerobic Culture [facility] Bacterial blood cultureOrder ed By: Sanjay Holt on 11-17-2022 Bacteria identified Cx Nom (Bld) NO GROWTH 5 DAYS [facility] Basic Metabolic Panelon 05 Anion gap [Moles/Vol] 9.3 mmol/L Normal 6.0-15.0 [facility] Comment on above: Performed By: #### B MP, CBCNO ####[facility] [id number] [place] [address] [place] Calcium [Mass/Vol] 7.8 mg/dL Low 8.6-10.3 [facility] Comment on above: Performed By: #### B MP, CBCNO ####[facility] [id number] [place] [address] [place] Chloride [Moles/Vol] 93 mmol/L Low 98-107 [facility] Comment on above: Performed By: #### B YOSEPH, CBCNO ####[facility] [id number] [place] [address] [facility] CO2 [Moles/Vol] 33.7 mmol/L High 21.0-31.0 [facility] Comment on above: Performed By: #### B YOSEPH, CBCNO ####[facility] [place] [address] [facility] Creatinine [Mass/Vol] 0.50 mg/dL Low 0.70-1.30 [facility] Comment on above: Performed By: #### B YOESPH, CBCNO ####[address] [place] [address] [place] Creatinine Clr Calc Pharmacy 217.84 [facility] Comment on above: Result Comment: PERF ORMED BY:[address] [place], [place] [phone] MEDICAL DIRECTORNATI LAUREN M.D. Performed By: #### B YOSEPH, CBCNO ####[address] [place] [address] [facility] GFR/1.73 sq M.predicted MDRD (S/P/Bld) [Vol rate/Area] mL/min/{1.73_m2} [facility] Comment on above: Performed By: #### B YOSEPH, CBCNO ####[address] [place] [address] [facility] Glucose [Mass/Vol] 102 mg/dL High 70-100 [facility] Comment on above: Result Comment: [place] Glucose Reference Range is dependent on time and content of last meal. Glucose of more than 200 mg/dL in a nonstressed, ambulatory subject supports the diagnosis of Diabetes Mellitus. ADA recommended reference range Performed By: #### B YOSEPH, CBCNO ####[facility] [id number] [place] [address] [facility] Potassium [Moles/Vol] 4.0 mmol/L Normal 3.5-5.1 [facility] Comment on above: Performed By: #### B YOSEPH, CBCNO ####[facility] [place] [id number] [facility] Sodium [Moles/Vol] 132 mmol/L Low 136-145 [facility] Comment on above: Performed By: #### B YOSEPH CBCNO ####[facility] [place] [id number] [facility] Urea nitrogen [Mass/Vol] 23 mg/dL Normal 7-25 [facility] Comment on above: Performed By: #### B YOSEPH CBCNO ####[facility] [place] [id number] [facility] Bilirubin.direct [Mass/volum e] in Serum or PlasmaOrdered By: Evi Gay on 11-17-2022 Bilirubin.direct [Mass/Vol] 0.30 mg/dL 0.03-0.18 [facility] Blood Cultureon 11-17-2022 Bacteria identified Cx Nom (Bld) Comment suctioned NO GROWTH 5 DAYS PERFORMED BY: [facility] [address] [place] [address] PATHOLOGIST MORTAR CARRIER NATI LAUREN M.D. [facility] Comment on above: Performed By: #### C UBLD ####[id number] [facility] Creatine Kinaseon 11-17-2022 CK [Catalytic activity/Vol] 70 U/L Normal [facility] Comment on above: Order Comment: Comme nt has CVC LINE DRAW Performed By: #### H S TROP, CK ####[id number] [facility] Creatine kinase [Enzymatic a ctivity/volume] in Serum or PlasmaOrdered By: Evi Gay on 11-17-2022 CK [Catalytic activity/Vol] 70 U/L 30- [facility] ECG 12 lead ECGon 11-17-2022 ECG 12 lead ECG Normal [facility] ECG 12 lead ECG Normal [facility] ECH echo transthoracicon ECH echo transthoracic Normal [facility] Glucose Poct Glucometerson 0 11-17-2022 Commemt1 Glu2: Cleaned Meter Normal [facility] Comment on above: Result Comment: PERF ORMED BY:[facility] [place], [place] [phone] MEDICAL DIRECTORNATI LAUREN M.D. Performed By: #### G LUBETY ####Point of Care testing, Glucose [Mass/Vol] 106 mg/dL Normal [facility] Comment on above: Result Comment: [facility] Glucose Reference Range is dependent on time and content of last meal. Glucose of more than 200 mg/dL in a nonstressed, ambulatory subject supports the diagnosis of Diabetes Mellitus. Performed By: #### G LULS ####Point of Care testing, Gram Stainon 11-17-2022 Microscopic observation Gram stain Nom (Unsp spec) Comment suctioned Gram Stain Result 4+ Gram Positive Bacilli 3+ White Blood Cells Rare Epithelial Cells PERFORMED BY: [facility] [address] [place] [address] PATHOLOGIST MORTAR CARRIER NATI LAUREN M.D. Normal [facility] Comment on above: Performed By: #### G S, AERC ####[address] [address] [facility] Gram stain for investigation of transfusion reactionOrdered By: Sanjay Holt on 11-17-2022 Microscopic observation Gram stain Nom (Unsp spec) [facility] Hemogram CBC Without Diffon 11-17-2022 Erythrocyte distribution width (RBC) [Ratio] 13.7 % Normal 12.0-14.8 [facility] Comment on above: Performed By: #### B MP, CBCNO ####[facility] [id number] [place] [address] [place] Hematocrit (Bld) [Volume fraction] 28.0 % Low 38.8-50.0 [facility] Comment on above: Performed By: #### B MP, CBCNO ####[facility] [id number] [place] [address] [facility] Hemoglobin (Bld) [Mass/Vol] 9.1 g/dL Low 13.0-17.0 [facility] Comment on above: Performed By: #### B MP, CBCNO ####[address] [place] [address] [facility] MCH (RBC) [Entitic mass] 29.1 pg Normal 27.5-35.2 [facility] Comment on above: Performed By: #### B YOSEPH CBCNO ####[address] [place] [address] [facility] MCV (RBC) [Entitic vol] 89.7 fL Normal 83.5-101 [facility] Comment on above: Performed By: #### B YOSEPH CBCNO ####[address] [place] [address] [facility] Mean Corpuscular HGB Conc 32.4 g/dL Low 32.5-35.6 [facility] Comment on above: Performed By: #### B YOSEPH CBCNO ####[id number] [facility] Platelet mean volume (Bld) [Entitic vol] 7.7 fL Normal 6.6-10.1 [facility] Comment on above: Result Comment: PERF ORMED BY:[address] [place], [place] [phone] MEDICAL DIRECTORNATI LAUREN M.D. Performed By: #### B YOSEPH CBCNO ####[address] [address] [facility] Platelets (Bld) [#/Vol] 423 10*3/uL Normal 150-450 [facility] Comment on above: Performed By: #### B YOSEPH CBCNO ####[id number] [facility] RBC (Bld) [#/Vol] 3.12 10*6/uL Low 3.90-5.60 [facility] Comment on above: Performed By: #### B YOSEPH CBCNO ####[id number] [facility] WBC (Bld) [#/Vol] 20.5 10*3/uL High 4.1-10.5 [facility] Comment on above: Performed By: #### B YOSEPH CBCNO ####[facility] [place] [address] [facility] Hepatic Panelon 11-17-2022 Albumin [Mass/Vol] 2.4 g/dL Low 3.5-5.7 [facility] Comment on above: Order Comment: Comme nt please run off blood drawn this morning Performed By: #### L IPASE, CATRACHITO, HEPATIC ####[facility] [place] [address] [facility] Albumin/Globulin [Mass ratio] 0.7 {ratio} Normal [facility] Comment on above: Order Comment: Comme nt please run off blood drawn this morning Performed By: #### L IPASE, CATRACHITO, HEPATIC ####[address] [place] [address] [facility] ALP [Catalytic activity/Vol] 170 U/L High 34-104 [facility] Comment on above: Order Comment: Comme nt please run off blood drawn this morning Performed By: #### L IPASE, CATRACHITO, HEPATIC ####[address] [place] [address] [facility] ALT [Catalytic activity/Vol] 64 U/L High 7-52 [facility] Comment on above: Order Comment: Comme nt please run off blood drawn this morning Performed By: #### L IPASE, CATRACHITO, HEPATIC ####[facility] [place] [address] [facility] AST [Catalytic activity/Vol] 64 U/L High 13-39 [facility] Comment on above: Order Comment: Comme nt please run off blood drawn this morning Performed By: #### L IPASE, CATRACHITO, HEPATIC ####[address] [place] [address] [facility] Bilirubin [Mass/Vol] 0.6 mg/dL Normal 0.3-1.0 [facility] Comment on above: Order Comment: Comme nt please run off blood drawn this morning Performed By: #### L IPASE, CATRACHITO, HEPATIC ####[address] [place] [address] [place] Bilirubin,Indirect 0.3 mg/dL Normal [facility] Comment on above: Order Comment: Comme nt please run off blood drawn this morning Performed By: #### L IPASE, CATRACHITO, HEPATIC ####[id number] [facility] Bilirubin.indirect [Mass/Vol] 0.30 mg/dL High 0.03-0.18 [facility] Comment on above: Order Comment: Comme nt please run off blood drawn this morning Performed By: #### L IPASE, CATRACHITO, HEPATIC ####[id number] [facility] Globulin (S) [Mass/Vol] 3.6 g/dL Normal [facility] Comment on above: Order Comment: Comme nt please run off blood drawn this morning Performed By: #### L IPASE, CATRACHITO, HEPATIC ####[id number] [facility] Protein [Mass/Vol] 6.0 g/dL Low 6.4-8.9 [facility] Comment on above: Order Comment: Comme nt please run off blood drawn this morning Performed By: #### L IPASE, CTARACHITO, HEPATIC ####[id number] [facility] Lipaseon 11-17-2022 Lipase [Catalytic activity/Vol] 12.0 U/L Normal 11.0-82.0 [facility] Comment on above: Order Comment: Comme nt please run off blood drawn this morning Result Comment: PERF ORMED BY:[address] [place], [place] [phone] MEDICAL DIRECTORNATI LAUREN M.D. Performed By: #### L IPASE, CATRACHITO, HEPATIC ####[id number] [facility] Lipase [Enzymatic activity/v olume] in Serum or PlasmaOrdered By: Evi Gay on 11-17-2022 Lipase [Catalytic activity/Vol] 12.0 U/L 11.0-82.0 [facility] Magnesiumon 11-17-2022 Magnesium [Mass/Vol] 1.9 mg/dL Normal 1.9-2.7 [facility] Comment on above: Result Comment: PERF ORMED BY:[address], [place] [phone] MEDICAL DIRECTORNATI LAUREN M.D. Performed By: #### M G ####[address] [address] [facility] No Panel InformationOrdered By: Shant Villegas on 11-17-2022 Bedside Glucose Comment Glu2: cleaned meter [facility] Serum or plasma non-glucuron idated bilirubin measurement (mass/volume)Ordered By: Evi Gay on 11-17-2022 Bilirubin.indirect [Mass/Vol] 0.3 mg/dL [facility] Thyroid Stimulating Hormoneo n 11-17-2022 TSH Qn 9.27 m[IU]/L High 0.45-5.33 [facility] Comment on above: Order Comment: Comme nt please run off blood drawn today Result Comment: PERF ORMED BY:[address] [place], [place] [phone] MEDICAL DIRECTORNATI LAUREN M.D. Performed By: #### T SH3 ####[address] [address] [facility] Thyrotropin [Units/volume] i n Serum or PlasmaOrdered By: Evi Gay on 11-17-2022 TSH Qn 9.27 m[IU]/L 0.45-5.33 [facility] Troponin I High Sensitivityo n 11-17-2022 Troponin I High Sensitivity 24.1 pg/mL High 0.0-20.0 [facility] Comment on above: Order Comment: Comme nt has CVC LINE DRAW Result Comment: PERF ORMED BY:[address] [place], [place] [phone] MEDICAL ALEKSANDAR LAUREN M.D. Performed By: #### H S TROP, CK ####[address] [address] [facility] Troponin I.cardiac [Mass/vol ume] in Serum or Plasma by Detection limit <= 0.01 ng/Ordered By: Evi Gay on 11-17-2022 Troponin I.cardiac DL <= 0.01 ng/mL [Mass/Vol] 24.1 pg/mL 0.0-20.0 [facility] XR chest 1V portableon 11-17 XR chest 1V portable Normal [facility] Arterial Blood Gason 023 ABG Base Excess 10.9 mmol/L High -3.0-3.0 [facility] Comment on above: Performed By: #### A BG ####Point of Care testing, ABG Frac Inspired O2 50 % [facility] Comment on above: Performed By: #### A BG ####Point of Care testing, ABG Oxygen Content 6.1 mmol/L Low 6.6-9.7 [facility] Comment on above: Performed By: #### A BG ####Point of Care testing, ABG Oxygen Saturation 94.7 % Low 95.0-100.0 [facility] Comment on above: Performed By: #### A BG ####Point of Care testing, ABG PCO2 43.6 mm[Hg] Normal 35.0-45.0 [facility] [facility] Comment on above: Performed By: #### A BG ####Point of Care testing, ABG PEEP 10 [facility] Comment on above: Performed By: #### A BG ####Point of Care testing, ABG PH 7.52 High 7.35-7.45 [facility] Comment on above: Performed By: #### A BG ####Point of Care testing, ABG PO2 71.3 mm[Hg] Low 80.0-100.0 [facility] Comment on above: Performed By: #### A BG ####Point of Care testing, ABG TV 500 mL [facility] Comment on above: Performed By: #### A BG ####Point of Care testing, CO2 [Moles/Vol] 36.1 mmol/L High 23.0-27.0 [facility] Comment on above: Performed By: #### A BG ####Point of Care testing, HCO3 (Bld) [Moles/Vol] 34.8 mmol/L High 23.0-29.0 [facility] Comment on above: Performed By: #### A BG ####Point of Care testing, Respiratory Critical [facility] Comment on above: Result Comment: Crit ical Value called on: 11/16/2022 at 04:35PERFORMED BY:[facility] [place] [place], [place] [phone] MEDICAL DIRECTORNATI LAUREN M.D. Performed By: #### A BG ####Point of Care testing, Set Respiratory Rate 20 [facility] Comment on above: Performed By: #### A BG ####Point of Care testing, VBG Draw Site Left Radial [facility] Comment on above: Performed By: #### A BG ####Point of Care testing, Ventilator Mode AC [facility] Comment on above: Performed By: #### A BG ####Point of Care testing, Automated erythrocytes count in urine sediment (number/area)Ordered By: Sanjay Holt on 11-16-2022 RBC Auto (Urine sed) [#/Area] 50-100 [HPF] 0-4 [facility] Automated leukocytes count i n urine sediment (number/area)Ordered By: Sanjay Holt on 11-16-2022 WBC Auto (Urine sed) [#/Area] 3-4 [HPF] 0-4 [facility] Basic Metabolic Panelon 11-07 Anion gap [Moles/Vol] 8.6 mmol/L Normal 6.0-15.0 [facility] Comment on above: Performed By: #### B MP, TRIG ####[facility] [address] [place] [address] [facility] Calcium [Mass/Vol] 7.5 mg/dL Low 8.6-10.3 [facility] Comment on above: Performed By: #### B MP, TRIG ####[facility] [address] [place] [address] [facility] Chloride [Moles/Vol] 90 mmol/L Low 98-107 [facility] Comment on above: Performed By: #### B MP, TRIG ####[facility] [place] [id number] [facility] CO2 [Moles/Vol] 36.7 mmol/L High 21.0-31.0 [facility] Comment on above: Performed By: #### B MP, TRIG ####[place] [id number] [place] [id number] [facility] Creatinine [Mass/Vol] 0.65 mg/dL Low 0.70-1.30 [facility] Comment on above: Performed By: #### B MP, TRIG ####[address] [place] [place] [address] [place] Creatinine Clr Calc Pharmacy 167.57 [facility] Comment on above: Performed By: #### B MP, TRIG ####[address] [place] [address] [place] [id number] [facility] GFR/1.73 sq M.predicted MDRD (S/P/Bld) [Vol rate/Area] mL/min/{1.73_m2} [facility] Comment on above: Performed By: #### B MP, TRIG ####[address] [place] [place] [id number] [facility] Glucose [Mass/Vol] 106 mg/dL High 70-100 [facility] Comment on above: Result Comment: [place] Glucose Reference Range is dependent on time and content of last meal. Glucose of more than 200 mg/dL in a nonstressed, ambulatory subject supports the diagnosis of Diabetes Mellitus. ADA recommended reference range Performed By: #### B MP, TRIG ####[facility] [place] [id number] [place] Potassium [Moles/Vol] 4.3 mmol/L Normal 3.5-5.1 [facility] Comment on above: Performed By: #### B MP, TRIG ####[facility] [place] [id number] [facility] Sodium [Moles/Vol] 131 mmol/L Low 136-145 [facility] Comment on above: Performed By: #### B MP, TRIG ####[address] [place] [address] [facility] Urea nitrogen [Mass/Vol] 32 mg/dL High 7 [facility] Comment on above: Performed By: #### B MP, TRIG ####[address] [address] [facility] Bilirubin Test strip Ql (U)O rdered By: Sanjay Holt on 11-16-2022 Bilirubin Ql (U) Negative Negative [facility] Blood Cultureon 11-16-2022 Bacteria identified Cx Nom (Bld) NO GROWTH 5 DAYS PERFORMED BY: [place] [address] PATHOLOGIST MORTAR CARRIER NATI LAUREN M.D. [facility] Comment on above: Performed By: #### C UBLD ####[address] [address] [facility] Bacteria identified Cx Nom (Bld) NO GROWTH 5 DAYS PERFORMED BY: [place] [address] PATHOLOGIST MORTAR CARRIER NATI LAUREN M.D. [facility] Comment on above: Performed By: #### C UBLD ####[place] [id number] [facility] CT angio chest PE protocolon 11-16-2022 CT angio chest PE protocol Normal [facility] Color Auto (U)Ordered By: Stephanie Holt on 11-16-2022 Color (U) Dark yellow Yellow [facility] Dipstick and Microscopicon 0 11-16-2022 Appearance (U) Clear Normal Clear [facility] Comment on above: Order Comment: Name Collection Type:: Jonse Catheter Performed By: #### C UU, ADDONUAPLUS ####[address] [address] [facility] Bacteria,Urine None Seen Normal None Seen [facility] Comment on above: Order Comment: Name Collection Type:: Jones Catheter Performed By: #### C UU, ADDONUAPLUS ####[address] [place] [address] [facility] Bilirubin,Urine Negative Normal Negative [facility] Comment on above: Order Comment: Name Collection Type:: Jones Catheter Performed By: #### C UU, ADDONUAPLUS ####[address] [address] [facility] Color (U) Dark Yellow Critically abnormal Yellow [facility] Comment on above: Order Comment: Name Collection Type:: Jones Catheter Performed By: #### C UU, ADDONUAPLUS ####[address] [address] [facility] Glucose Ql (U) Normal Normal Normal [facility] Comment on above: Order Comment: Name Collection Type:: Jones Catheter Performed By: #### C UU, ADDONUAPLUS ####[address] [address] [facility] Hyaline Casts,Urine 0-8 Normal 0-8 [facility] Comment on above: Order Comment: Name Collection Type:: Jones Catheter Result Comment: PERF ORMED BY:[address] NGOZIRosalbaAlfreditoSHOW [place], [place] [phone] MEDICAL DIRECTORNATI LAUREN M.D. Performed By: #### C UU, ADDONUAPLUS ####[address] [address] [facility] Ketones Ql (U) Negative Normal Negative [facility] Comment on above: Order Comment: Name Collection Type:: Jones Catheter Performed By: #### C UU, ADDONUAPLUS ####[address] [address] [facility] Leukocyte esterase Test strip Ql (U) 1+ High Negative [facility] Comment on above: Order Comment: Name Collection Type:: Jones Catheter Performed By: #### C UU, ADDONUAPLUS ####[address] [address] [facility] Nitrite,Urine Negative Normal Negative [facility] Comment on above: Order Comment: Name Collection Type:: Jones Catheter Performed By: #### C UU, ADDONUAPLUS ####[address] [address] [facility] Occult Blood,Urine 1+ High Negative [facility] Comment on above: Order Comment: Name Collection Type:: Jones Catheter Result Comment: PERF ORMED BY:[address] [place], [place] [phone] MEDICAL DIRECTORNATI LAUREN M.D. Performed By: #### C UU, ADDONUAPLUS ####[address] [address] [facility] pH (U) 5.5 [pH] Normal 5.0-9.0 [facility] Comment on above: Order Comment: Name Collection Type:: Jones Catheter Performed By: #### C UU, ADDONUAPLUS ####[address] [address] [facility] Protein,Urine Trace High Negative [facility] Comment on above: Order Comment: Name Collection Type:: Jones Catheter Performed By: #### C UU, ADDONUAPLUS ####[address] [address] [facility] RBC,Urine 50-100 High 0-4 [facility] Comment on above: Order Comment: Name Collection Type:: Jones Catheter Performed By: #### C UU, ADDONUAPLUS ####[address] [address] [facility] Specificy Dow,Urine 1.022 Normal 1.001-1.03 0 [facility] Comment on above: Order Comment: Name Collection Type:: Jones Catheter Performed By: #### C UU, ADDONUAPLUS ####[address] [address] [facility] Squamous Epithelial Cell,Urine None Seen Normal 0-2 [facility] Comment on above: Order Comment: Name Collection Type:: Jones Catheter Performed By: #### C UU, ADDONUAPLUS ####[address] [address] [facility] Urobilinogen,Urine Normal Normal Normal [facility] Comment on above: Order Comment: Name Collection Type:: Jones Catheter Performed By: #### C UU, ADDONUAPLUS ####[facility] [id number] [place] [address] [facility] WBC,Urine 3-4 Normal 0-4 [facility] Comment on above: Order Comment: Name Collection Type:: Jones Catheter Performed By: #### C UU, ADDONUAPLUS ####[facility] [place] [address] [facility] Glucose Poct Glucometerson 0 11-16-2022 Commemt1 Glu2: Cleaned Meter Normal [facility] Comment on above: Result Comment: PERF ORMED BY:[place] [id number] NGOZIRosalbaAlfreditoSHOW [place], [place] [phone] MEDICAL DIRECTORNATI LAUREN M.D. Performed By: #### G LULS ####Point of Care testing, Glucose [Mass/Vol] 101 mg/dL Normal [facility] Comment on above: Result Comment: [facility] Glucose Reference Range is dependent on time and content of last meal. Glucose of more than 200 mg/dL in a nonstressed, ambulatory subject supports the diagnosis of Diabetes Mellitus. Performed By: #### G LULS ####Point of Care testing, Ketones Auto test strip (U) [Mass/Vol]Ordered By: Sanjay Holt on 11-16-2022 Ketones (U) [Mass/Vol] Negative Negative [facility] - UrinalysisOrder ed By: Sanjay Holt on 11-16-2022 Hyaline casts LM Ql (Urine sed) 0-8 [LPF] 0-8 [facility] Nitrite Test strip Ql (U)Ord ered By: Sanjay Holt on 11-16-2022 Nitrite Ql (U) Negative Negative [facility] Protein Auto test strip (U) [Mass/Vol]Ordered By: Sanjay Holt on 11-16-2022 Protein (U) [Mass/Vol] Trace mg/dL Negative [facility] Red blood cell stomatocyte d etectionOrdered By: Reginald Arroyo on 11-16-2022 Stomatocytes LM Ql (Bld) Slight [facility] Scan and CBCon 11-16-2022 Basophils (Bld) [#/Vol] 0.2 10*3/uL Normal 0.0-0.2 [facility] Comment on above: Performed By: #### S CAN CBC ####[address] Basophils/100 WBC (Bld) 0.7 % Normal . [facility] Comment on above: Performed By: #### S CAN CBC ####[address] Eosinophils (Bld) [#/Vol] 0.2 10*3/uL Normal 0.0-0.45 [facility] Comment on above: Performed By: #### S CAN CBC ####[address] Eosinophils/100 WBC (Bld) 0.8 % Normal . [facility] Comment on above: Performed By: #### S CAN CBC ####[address] Erythrocyte distribution width (RBC) [Ratio] 13.7 % Normal 12.0-14.8 [facility] Comment on above: Performed By: #### S CAN CBC ####[address] Hematocrit (Bld) [Volume fraction] 26.4 % Low 38.8-50.0 [facility] Comment on above: Performed By: #### S CAN CBC ####[address] Hemoglobin (Bld) [Mass/Vol] 8.6 g/dL Low 13.0-17.0 [facility] Comment on above: Performed By: #### S CAN CBC ####[address] Hypochromasia Moderate Normal [facility] Comment on above: Performed By: #### S CAN CBC ####[address] Lymphocytes (Bld) [#/Vol] 1.9 10*3/uL Normal 1.00-4.8 [facility] Comment on above: Performed By: #### S CAN CBC ####[address] Lymphocytes/100 WBC (Bld) 7.8 % Normal . [facility] Comment on above: Performed By: #### S CAN CBC ####[address] MCH (RBC) [Entitic mass] 29.0 pg Normal 27.5-35.2 [facility] Comment on above: Performed By: #### S CAN CBC ####[address] MCV (RBC) [Entitic vol] 89.5 fL Normal 83.5-101 [facility] Comment on above: Performed By: #### S CAN CBC ####[address] Mean Corpuscular HGB Conc 32.4 g/dL Low 32.5-35.6 [facility] Comment on above: Performed By: #### S CAN CBC ####[address] Monocytes (Bld) [#/Vol] 2.3 10*3/uL High 0.0-0.8 [facility] Comment on above: Performed By: #### S CAN CBC ####[address] Monocytes/100 WBC (Bld) 9.4 % Normal . [facility] Comment on above: Performed By: #### S CAN CBC ####[address] Neutrophils (Bld) [#/Vol] 19.7 10*3/uL High 1.8-7.7 [facility] Comment on above: Performed By: #### S CAN CBC ####[address] Neutrophils/100 WBC (Bld) 81.3 % Normal . [facility] Comment on above: Performed By: #### S CAN CBC ####[address] [address] [facility] NRBC% 0.0 /100{WBC} Normal 0-0.5 [facility] Comment on above: Performed By: #### S CAN CBC ####[address] [address] [facility] Platelet Estimate Normal Normal Normal [facility] Comment on above: Performed By: #### S CAN CBC ####[address] [address] [facility] Platelet mean volume (Bld) [Entitic vol] 7.8 fL Normal 6.6-10.1 [facility] Comment on above: Performed By: #### S CAN CBC ####[place] [id number] [facility] Platelet Morphology Normal Normal Normal [facility] Comment on above: Result Comment: PERF ORMED BY:[address] NGOZIRosalbaAlfreditoSHOW [place], [place] [phone] MEDICAL ALEKSANDAR LAUREN M.D. Performed By: #### S CAN CBC ####[address] [address] [facility] Platelets (Bld) [#/Vol] 369 10*3/uL Normal 150-450 [facility] Comment on above: Performed By: #### S CAN CBC ####[address] [address] [facility] Polychromasia Slight Normal [facility] Comment on above: Performed By: #### S CAN CBC ####[address] [address] [facility] RBC (Bld) [#/Vol] 2.95 10*6/uL Low 3.90-5.60 [facility] Comment on above: Performed By: #### S CAN CBC ####[address] [address] [facility] Stomatocytes Slight Normal [facility] Comment on above: Performed By: #### S CAN CBC ####[address] [address] [facility] WBC (Bld) [#/Vol] 24.2 10*3/uL High 4.1-10.5 [facility] Comment on above: Performed By: #### S CAN CBC ####[place] [id number] [facility] Specific gravity Auto test s trip (U) [Rel density]Ordered By: Sanjay Holt on 11-16-2022 Specific gravity (U) [Rel density] 1.022 1.001-1.03 0 [facility] Squamous epithelial cells de tection in urine sediment by light microscopyOrdered By: Sanjay Holt on 11-16-2022 Epithelial cells.squamous LM Ql (Urine sed) None seen [HPF] 0-2 [facility] Triglycerideson 11-16-2022 Triglyceride [Mass/Vol] 109 mg/dL Normal 0-149 [facility] Comment on above: Result Comment: TRIG ATP III CLASSIFICATION TRIG less than 150 mg/dL Normal TRIG 150-199 mg/dL Borderline high TRIG 200-500 mg/dL High TRIG greater than 500 mg/dL Very high Standard traceable to the Center for Disease Conrtrol and Prevention (CDC) test method.PERFORMED BY:[facility] [place], [place] [phone] MEDICAL DIRECTORNATI LAUREN M.D. Performed By: #### B MP, TRIG ####[place] [id number] [facility] Urine Cultureon 11-16-2022 Bacteria identified Cx Nom (U) No Growth 2 Days PERFORMED BY: [facility] [address] [place] [id number] PATHOLOGIST MORTAR CARRIER NATI LAUREN M.D. Normal [facility] Comment on above: Performed By: #### C UU, ADDONUAPLUS ####[address] [address] [facility] Urine bacteria detection by automated methodOrdered By: Sanjay Holt on 11-16-2022 Bacteria Auto Ql (U) None seen None Seen [facility] Urine clarity by refractomet ry automatedOrdered By: Sanjay Holt on 11-16-2022 Clarity Refractometry automated (U) Clear Clear [facility] Urine culture routineOrdered By: Sanjay Holt on 11-16-2022 Bacteria identified Cx Nom (U) No Growth 2 Days [facility] Urine glucose measurement by automated test strip (mass/volume)Ordered By: Sanjay Holt on 11-16-2022 Glucose Auto test strip (U) [Mass/Vol] Normal mg/dL Normal [facility] Urine hemoglobin detection b y automated test stripOrdered By: Sanjay Holt on 11-16-2022 Hemoglobin Auto test strip Ql (U) 1+ Negative [facility] Urine leukocyte esterase det ection by automated test stripOrdered By: Sanjay Holt on 11-16-2022 Leukocyte esterase Auto test strip Ql (U) 1+ Negative [facility] Urobilinogen Auto test strip (U) [Mass/Vol]Ordered By: Sanjay Holt on 11-16-2022 Urobilinogen (U) [Mass/Vol] Normal mg/dL Normal [facility] XR chest 1V portableon 11-16 XR chest 1V portable Normal [facility] pH Auto test strip (U)Ordere d By: Sanjay Holt on 11-16-2022 pH (U) 5.5 [pH] 5.0-9.0 [facility] Arterial Blood Gason 023 ABG Base Excess 9.5 mmol/L High -3.0-3.0 [facility] Comment on above: Performed By: #### A BG ####Point of Care testing, ABG Frac Inspired O2 80 % Normal [facility] Comment on above: Performed By: #### A BG ####Point of Care testing, ABG Oxygen Content 7.0 mmol/L Normal 6.6-9.7 [facility] Comment on above: Performed By: #### A BG ####Point of Care testing, ABG Oxygen Saturation 97.2 % Normal 95.0-100.0 [facility] Comment on above: Performed By: #### A BG ####Point of Care testing, ABG PCO2 45.9 mm[Hg] High 35.0-45.0 [facility] Comment on above: Performed By: #### A BG ####Point of Care testing, ABG PEEP 10 [facility] Comment on above: Performed By: #### A BG ####Point of Care testing, ABG PH 7.49 High 7.35-7.45 [facility] Comment on above: Performed By: #### A BG ####Point of Care testing, ABG PO2 92.1 mm[Hg] Normal 80.0-100.0 [facility] Comment on above: Performed By: #### A BG ####Point of Care testing, ABG TV 500 mL [facility] Comment on above: Performed By: #### A BG ####Point of Care testing, CO2 [Moles/Vol] 35.4 mmol/L High 23.0-27.0 [facility] Comment on above: Performed By: #### A BG ####Point of Care testing, HCO3 (Bld) [Moles/Vol] 34.0 mmol/L High 23.0-29.0 [facility] Comment on above: Performed By: #### A BG ####Point of Care testing, Respiratory Critical [facility] Comment on above: Result Comment: Crit ical Value called on: 11/15/2022 at 05:48PERFORMED BY:[place] [address] [place], [place] [phone] MEDICAL DIRECTORNATI LAUREN M.D. Performed By: #### A BG ####Point of Care testing, Set Respiratory Rate 20 [facility] Comment on above: Performed By: #### A BG ####Point of Care testing, VBG Draw Site Left Radial [facility] Comment on above: Performed By: #### A BG ####Point of Care testing, Ventilator Mode AC [facility] Comment on above: Performed By: #### A BG ####Point of Care testing, Basic Metabolic Panelon Anion gap [Moles/Vol] 8.4 mmol/L Normal 6.0-15.0 [facility] Comment on above: Performed By: #### S CAN CBC, BMP ####[place] [place] [address] [facility] Calcium [Mass/Vol] 7.8 mg/dL Low 8.6-10.3 [facility] Comment on above: Performed By: #### S CAN CBC, BMP ####[place] [id number] [facility] Chloride [Moles/Vol] 90 mmol/L Low 98-107 [facility] Comment on above: Performed By: #### S CAN CBC, BMP ####[place] [id number] [facility] CO2 [Moles/Vol] 35.9 mmol/L High 21.0-31.0 [facility] Comment on above: Performed By: #### S CAN CBC, BMP ####[place] [id number] [facility] Creatinine [Mass/Vol] 0.57 mg/dL Low 0.70-1.30 [facility] Comment on above: Performed By: #### S CAN CBC, BMP ####[place] [id number] [facility] Creatinine Clr Calc Pharmacy 191.33 [facility] Comment on above: Result Comment: PERF ORMED BY:[address] [place], [place] [phone] MEDICAL ALEKSANDAR LAUREN M.D. Performed By: #### S CAN CBC, BMP ####[address] [address] [place] GFR/1.73 sq M.predicted MDRD (S/P/Bld) [Vol rate/Area] mL/min/{1.73_m2} [facility] Comment on above: Performed By: #### S CAN CBC, BMP ####[place] [id number] [facility] Glucose [Mass/Vol] 126 mg/dL High 70-100 [facility] Comment on above: Result Comment: [facility] Glucose Reference Range is dependent on time and content of last meal. Glucose of more than 200 mg/dL in a nonstressed, ambulatory subject supports the diagnosis of Diabetes Mellitus. ADA recommended reference range Performed By: #### S CAN CBC, BMP ####[facility] [address] [place] [address] [facility] Potassium [Moles/Vol] 4.3 mmol/L Normal 3.5-5.1 [facility] Comment on above: Performed By: #### S CAN CBC, BMP ####[place] [address] [place] [id number] [facility] Sodium [Moles/Vol] 130 mmol/L Low 136-145 [facility] Comment on above: Performed By: #### S CAN CBC, BMP ####[place] [address] [place] [id number] [facility] Urea nitrogen [Mass/Vol] 28 mg/dL High 7-25 [facility] Comment on above: Performed By: #### S CAN CBC, BMP ####[facility] [id number] [place] [address] [facility] Scan and CBCon 11-15-2022 Basophils (Bld) [#/Vol] 0.0 10*3/uL Normal 0.0-0.2 [facility] Comment on above: Performed By: #### S CAN CBC, BMP ####[place] [address] [place] [id number] [place] Basophils/100 WBC (Bld) 0.1 % Normal . [facility] Comment on above: Performed By: #### S CAN CBC, BMP ####[facility] [place] [address] [place] Eosinophils (Bld) [#/Vol] 0.2 10*3/uL Normal 0.0-0.45 [facility] Comment on above: Performed By: #### S CAN CBC, BMP ####[facility] [place] [id number] [place] Eosinophils/100 WBC (Bld) 1.0 % Normal . [facility] Comment on above: Performed By: #### S CAN CBC, BMP ####[place] [id number] [facility] Erythrocyte distribution width (RBC) [Ratio] 13.7 % Normal 12.0-14.8 [facility] Comment on above: Performed By: #### S CAN CBC, BMP ####[place] [id number] [facility] Hematocrit (Bld) [Volume fraction] 30.3 % Low 38.8-50.0 [facility] Comment on above: Performed By: #### S CAN CBC, BMP ####[address] Hemoglobin (Bld) [Mass/Vol] 10.1 g/dL Low 13.0-17.0 [facility] Comment on above: Performed By: #### S CAN CBC, BMP ####[address] Hypochromasia Moderate Normal [facility] Comment on above: Performed By: #### S CAN CBC, BMP ####[address] Lymphocytes (Bld) [#/Vol] 1.9 10*3/uL Normal 1.00-4.8 [facility] Comment on above: Performed By: #### S CAN CBC, BMP ####[place] [id number] [facility] Lymphocytes/100 WBC (Bld) 7.8 % Normal . [facility] Comment on above: Performed By: #### S CAN CBC, BMP ####[address] MCH (RBC) [Entitic mass] 29.9 pg Normal 27.5-35.2 [facility] Comment on above: Performed By: #### S CAN CBC, BMP ####[place] [id number] [facility] MCV (RBC) [Entitic vol] 89.5 fL Normal 83.5-101 [facility] Comment on above: Performed By: #### S CAN CBC, BMP ####[place] [address] [place] [address] [facility] Mean Corpuscular HGB Conc 33.4 g/dL Normal 32.5-35.6 [facility] [facility] Comment on above: Performed By: #### S CAN CBC, BMP ####[address] [address] [facility] Monocytes (Bld) [#/Vol] 2.4 10*3/uL High 0.0-0.8 [facility] Comment on above: Performed By: #### S CAN CBC, BMP ####[place] [id number] [place] [id number] [facility] Monocytes/100 WBC (Bld) 9.7 % Normal . [facility] Comment on above: Performed By: #### S CAN CBC, BMP ####[place] [id number] [facility] Neutrophils (Bld) [#/Vol] 20.4 10*3/uL High 1.8-7.7 [facility] Comment on above: Performed By: #### S CAN CBC, BMP ####[place] [id number] [facility] Neutrophils/100 WBC (Bld) 81.4 % Normal . [facility] Comment on above: Performed By: #### S CAN CBC, BMP ####[place] [id number] [facility] NRBC% 0.0 /100{WBC} Normal 0-0.5 [facility] Comment on above: Performed By: #### S CAN CBC, BMP ####[address] [address] [facility] Platelet Estimate Normal Normal Normal [facility] Comment on above: Performed By: #### S CAN CBC, BMP ####[place] [id number] [facility] Platelet mean volume (Bld) [Entitic vol] 7.7 fL Normal 6.6-10.1 [facility] Comment on above: Performed By: #### S CAN CBC, BMP ####[place] [id number] [facility] Platelet Morphology Normal Normal Normal [facility] Comment on above: Result Comment: PERF ORMED BY:[address] [place], [place] [phone] MEDICAL ALEKSANDAR LAUREN M.D. Performed By: #### S CAN CBC, BMP ####[place] [id number] [facility] Platelets (Bld) [#/Vol] 381 10*3/uL Normal 150-450 [facility] Comment on above: Performed By: #### S CAN CBC, BMP ####[address] Polychromasia Slight Normal [facility] Comment on above: Performed By: #### S CAN CBC, BMP ####[address] RBC (Bld) [#/Vol] 3.39 10*6/uL Low 3.90-5.60 [facility] Comment on above: Performed By: #### S CAN CBC, BMP ####[address] Stomatocytes Slight Normal [facility] Comment on above: Performed By: #### S CAN CBC, BMP ####[address] Toxic Vacuolation Slight Normal [facility] Comment on above: Performed By: #### S CAN CBC, BMP ####[place] [id number] [facility] WBC (Bld) [#/Vol] 25.0 10*3/uL High 4.1-10.5 [facility] Comment on above: Performed By: #### S CAN CBC, BMP ####[place] [id number] [facility] Toxic leukocyte vacuolation detectionOrdered By: Reginald Arroyo on 11-15-2022 Leukocyte toxic vacuoles LM Ql (Bld) Slight [facility] XR chest 1V portableon 11-15 XR chest 1V portable Normal [facility] AFB Specimen Processingon AFB Specimen Processing [facility] Comment on above: Performed By: #### A FBCS RES1, MYC CULT ####[facility] ,#### FS ####[facility] [id number] [place] [id number] [facility] Anisocytosis LM Ql (Bld)Orde red By: Reginald Arroyo on 11-14-2022 Anisocytosis Ql (Bld) Slight [facility] Arterial Blood Gason 023 ABG Base Excess 8.5 mmol/L High -3.0-3.0 [facility] Comment on above: Performed By: #### A BG ####Point of Care testing, ABG Frac Inspired O2 85 % [facility] Comment on above: Performed By: #### A BG ####Point of Care testing, ABG Oxygen Content 7.2 mmol/L Normal 6.6-9.7 [facility] Comment on above: Performed By: #### A BG ####Point of Care testing, ABG Oxygen Saturation 93.3 % Low 95.0-100.0 [facility] Comment on above: Performed By: #### A BG ####Point of Care testing, ABG PCO2 47.2 mm[Hg] High 35.0-45.0 [facility] Comment on above: Performed By: #### A BG ####Point of Care testing, ABG PEEP 8 [facility] Comment on above: Performed By: #### A BG ####Point of Care testing, ABG PH 7.47 High 7.35-7.45 [facility] Comment on above: Performed By: #### A BG ####Point of Care testing, ABG PO2 68.0 mm[Hg] Low 80.0-100.0 [facility] Comment on above: Performed By: #### A BG ####Point of Care testing, ABG TV 500 mL [facility] Comment on above: Performed By: #### A BG ####Point of Care testing, CO2 [Moles/Vol] 34.8 mmol/L High 23.0-27.0 [facility] Comment on above: Performed By: #### A BG ####Point of Care testing, HCO3 (Bld) [Moles/Vol] 33.3 mmol/L High 23.0-29.0 [facility] Comment on above: Performed By: #### A BG ####Point of Care testing, Respiratory Critical [facility] Comment on above: Result Comment: Crit ical Value called on: 11/14/2022 at 04:56PERFORMED BY:[facility] [place], [place] [phone] MEDICAL DIRECTORNATI LAUERN M.D. Performed By: #### A BG ####Point of Care testing, Set Respiratory Rate 20 [facility] Comment on above: Performed By: #### A BG ####Point of Care testing, VBG Draw Site Left Radial [facility] Comment on above: Performed By: #### A BG ####Point of Care testing, Ventilator Mode AC [facility] Comment on above: Performed By: #### A BG ####Point of Care testing, Basic Metabolic Panel Anion gap [Moles/Vol] 11.5 mmol/L Normal 6.0-15.0 [facility] Comment on above: Performed By: #### D IFF CBC, BMP ####[facility] [id number] [place] [address] [facility] Calcium [Mass/Vol] 7.8 mg/dL Low 8.6-10.3 [facility] Comment on above: Performed By: #### D IFF CBC, BMP ####[facility] [id number] [place] [address] [facility] Chloride [Moles/Vol] 91 mmol/L Low 98-107 [facility] Comment on above: Performed By: #### D IFF CBC, BMP ####[facility] [id number] [place] [address] [place] CO2 [Moles/Vol] 32.8 mmol/L High 21.0-31.0 [facility] Comment on above: Performed By: #### D IFF CBC, BMP ####[facility] [id number] [place] [address] [facility] Creatinine [Mass/Vol] 0.59 mg/dL Low 0.70-1.30 [facility] Comment on above: Performed By: #### D IFF CBC, BMP ####[address] [place] [place] [address] [place] Creatinine Clr Calc Pharmacy 186.93 [facility] Comment on above: Result Comment: PERF ORMED BY:[address] [place], [place] [phone] MEDICAL DIRECTORNATI LAUREN M.D. Performed By: #### D IFF CBC, BMP ####[address] [id number] [place] [address] [place] GFR/1.73 sq M.predicted MDRD (S/P/Bld) [Vol rate/Area] mL/min/{1.73_m2} [facility] Comment on above: Performed By: #### D IFF CBC, BMP ####[address] [place] [address] [facility] Glucose [Mass/Vol] 105 mg/dL High 70-100 [facility] Comment on above: Result Comment: [place] Glucose Reference Range is dependent on time and content of last meal. Glucose of more than 200 mg/dL in a nonstressed, ambulatory subject supports the diagnosis of Diabetes Mellitus. ADA recommended reference range Performed By: #### D IFF CBC, BMP ####[facility] [id number] [place] [address] [facility] Potassium [Moles/Vol] 4.3 mmol/L Normal 3.5-5.1 [facility] Comment on above: Performed By: #### D IFF CBC, BMP ####[place] [id number] [place] [id number] [facility] Sodium [Moles/Vol] 131 mmol/L Significant change down 136-145 [facility] Comment on above: Performed By: #### D IFF CBC, BMP ####[address] Urea nitrogen [Mass/Vol] 22 mg/dL Normal 7-25 [facility] Comment on above: Performed By: #### D IFF CBC, BMP ####[place] [id number] [facility] Bronch Cultureon 11-14-2022 Bronch Culture Normal [facility] Comment on above: Performed By: #### C UBR, ####[address] Diff and CBCon 11-14-2022 Anisocytosis Ql (Bld) Slight Normal [facility] Comment on above: Performed By: #### D IFF CBC, BMP ####[address] Eosinophils/100 WBC (Bld) 2 % Normal 1-3 [facility] Comment on above: Performed By: #### D IFF CBC, BMP ####[address] Erythrocyte distribution width (RBC) [Ratio] 13.7 % Normal 12.0-14.8 [facility] Comment on above: Performed By: #### D IFF CBC, BMP ####[place] [id number] [facility] Hematocrit (Bld) [Volume fraction] 34.1 % Low 38.8-50.0 [facility] Comment on above: Performed By: #### D IFF CBC, BMP ####[place] [id number] [facility] Hemoglobin (Bld) [Mass/Vol] 11.6 g/dL Low 13.0-17.0 [facility] Comment on above: Performed By: #### D IFF CBC, BMP ####[address] [place] [address] [place] Hypochromasia Slight Normal [facility] Comment on above: Performed By: #### D IFF CBC, BMP ####[place] [id number] [facility] Lymphocytes/100 WBC (Bld) 9 % Low 18-42 [facility] Comment on above: Performed By: #### D IFF CBC, BMP ####[address] MCH (RBC) [Entitic mass] 30.3 pg Normal 27.5-35.2 [facility] Comment on above: Performed By: #### D IFF CBC, BMP ####[address] MCV (RBC) [Entitic vol] 89.3 fL Normal 83.5-101 [facility] Comment on above: Performed By: #### D IFF CBC, BMP ####[address] Mean Corpuscular HGB Conc 33.9 g/dL Normal 32.5-35.6 [facility] Comment on above: Performed By: #### D IFF CBC, BMP ####[address] Metamyelocytes 2 % High 0-0 [facility] Comment on above: Performed By: #### D IFF CBC, BMP ####[place] [id number] [facility] Monocytes/100 WBC (Bld) 8 % Normal 2-11 [facility] Comment on above: Performed By: #### D IFF CBC, BMP ####[place] [id number] [facility] Myelocytes 1 % High 0-0 [facility] Comment on above: Performed By: #### D IFF CBC, BMP ####[place] [id number] [facility] Platelet Estimate Normal Normal Normal [facility] Comment on above: Result Comment: PERF ORMED BY:[place] [address] [address] [place], [place] [phone] MEDICAL DIRECTORNATI LAUREN M.D. Performed By: #### D IFF CBC, BMP ####[address] [address] [facility] Platelet mean volume (Bld) [Entitic vol] 7.3 fL Normal 6.6-10.1 [facility] Comment on above: Performed By: #### D IFF CBC, BMP ####[address] [address] [facility] Platelet Morphology Normal Normal Normal [facility] Comment on above: Result Comment: PERF ORMED BY:[place] [address] [place] [place], [place] [phone] MEDICAL DIRECTORNATI LAUREN M.D. Performed By: #### D IFF CBC, BMP ####[address] [address] [facility] Platelets (Bld) [#/Vol] 445 10*3/uL Normal 150-450 [facility] Comment on above: Performed By: #### D IFF CBC, BMP ####[address] [address] [facility] Poikilocytosis Slight Normal [facility] Comment on above: Performed By: #### D IFF CBC, BMP ####[address] [address] [facility] Polychromasia Slight Normal [facility] Comment on above: Performed By: #### D IFF CBC, BMP ####[address] [address] [facility] RBC (Bld) [#/Vol] 3.82 10*6/uL Low 3.90-5.60 [facility] Comment on above: Performed By: #### D IFF CBC, BMP ####[address] [address] [facility] Segmented neutrophils/100 WBC (Bld) 79 % High 50-70 [facility] Comment on above: Performed By: #### D IFF CBC, BMP ####[facility] [place] [address] [facility] Stomatocytes Slight [facility] Comment on above: Performed By: #### D IFF CBC, BMP ####[facility] [place] [address] [facility] Target Cells Slight [facility] Comment on above: Performed By: #### D IFF CBC, BMP ####[place] [place] [address] [facility] WBC (Bld) [#/Vol] 21.5 10*3/uL High 4.1-10.5 [facility] Comment on above: Performed By: #### D IFF CBC, BMP ####[address] [place] [place] [address] [facility] Eosinophils/100 WBC Manual c nt (Bld)Ordered By: Reginald Arroyo on 11-14-2022 Eosinophils/100 WBC (Bld) 2 % 1-3 [facility] Fungal Smearon 11-14-2022 Fungal Smear Fungus Smear Results No Yeast Like Elements Seen No Fungal Like Elements Seen PERFORMED BY: [facility] [address] [place] [address] PATHOLOGIST MORTAR CARRIER NATI LAUREN M.D. [facility] Comment on above: Performed By: #### A FBCS RES1, MYC CULT ####[facility] ,#### FS ####[place] [id number] [facility] Fungus (Mycology) Cultureon 11-14-2022 Fungus (Mycology) Culture [facility] Comment on above: Performed By: #### A FBCS RES1, MYC CULT ####[facility] ,#### FS ####[address] [address] [facility] Glucose Poct Glucometerson 0 11-14-2022 Glucose [Mass/Vol] 87 mg/dL [facility] Comment on above: Result Comment: [place] Glucose Reference Range is dependent on time and content of last meal. Glucose of more than 200 mg/dL in a nonstressed, ambulatory subject supports the diagnosis of Diabetes Mellitus.PERFORMED BY:[facility] [place], [place] [phone] MEDICAL DIRECTORNATI LAUREN M.D. Performed By: #### G LULS ####Point of Care testing, Gram Stainon 11-14-2022 Microscopic observation Gram stain Nom (Unsp spec) Gram Stain Result 3+ White Blood Cells 3+ Gram Positive Bacilli 1FPC PERFORMED BY: [facility] [address] [place] [address] PATHOLOGIST MORTAR CARRIER NATI LAUREN M.D. Normal [facility] Comment on above: Performed By: #### C UBR, ####[facility] [id number] [place] [address] [facility] Lymphocytes/100 WBC Manual c nt (Bld)Ordered By: Reginald Arroyo on 11-14-2022 Lymphocytes/100 WBC (Bld) 9 % 18-42 [facility] Metamyelocytes/100 WBC Manua l cnt (Bld)Ordered By: Reginald Arroyo on 11-14-2022 Metamyelocytes/100 WBC (Bld) 2 % 0-0 [facility] Monocytes/100 WBC Manual cnt (Bld)Ordered By: Reginald Arroyo on 11-14-2022 Monocytes/100 WBC (Bld) 8 % 2-11 [facility] Myelocytes/100 WBC Manual cn t (Bld)Ordered By: Reginald Arroyo on 11-14-2022 Myelocytes/100 WBC (Bld) 1 % 0-0 [facility] Segmented neutrophils/100 WB C Manual cnt (Bld)Ordered By: Reginald Arroyo on 11-14-2022 Segmented neutrophils/100 WBC (Bld) 79 % 50-70 [facility] Target cellsOrdered By: Kira Arroyo on 11-14-2022 Target cells LM Ql (Bld) Slight [facility] Triglycerideson 11-14-2022 Triglyceride [Mass/Vol] 144 mg/dL Normal 0-149 [facility] Comment on above: Order Comment: Comme nt please run off blood drawn this morning Result Comment: TRIG ATP III CLASSIFICATION TRIG less than 150 mg/dL Normal TRIG 150-199 mg/dL Borderline high TRIG 200-500 mg/dL High TRIG greater than 500 mg/dL Very high Standard traceable to the Center for Disease Conrtrol and Prevention (CDC) test method.PERFORMED BY:[facility] [place], [place] [phone] MEDICAL DIRECTORNATI LAUREN M.D. Performed By: #### T RIG ####[facility] [address] [place] [address] [facility] US venous duplex LE BIon US venous duplex LE BI Normal [facility] XR chest 1V portableon 11-14 XR chest 1V portable Normal [facility] XR chest 1V portable Normal [facility] Arterial Blood Gason 023 ABG Base Excess 10.0 mmol/L High -3.0-3.0 [facility] Comment on above: Performed By: #### A BG ####Point of Care testing, ABG Frac Inspired O2 60 % [facility] Comment on above: Performed By: #### A BG ####Point of Care testing, ABG Oxygen Content 7.3 mmol/L Normal 6.6-9.7 [facility] Comment on above: Performed By: #### A BG ####Point of Care testing, ABG Oxygen Saturation 90.3 % Low 95.0-100.0 [facility] Comment on above: Performed By: #### A BG ####Point of Care testing, ABG PCO2 52.0 mm[Hg] Off scale high 35.0-45.0 [facility] Comment on above: Performed By: #### A BG ####Point of Care testing, ABG PEEP 8 [facility] Comment on above: Performed By: #### A BG ####Point of Care testing, ABG PH 7.45 Normal 7.35-7.45 [facility] Comment on above: Performed By: #### A BG ####Point of Care testing, ABG PO2 58.1 mm[Hg] Low 80.0-100.0 [facility] Comment on above: Performed By: #### A BG ####Point of Care testing, ABG TV 500 mL [facility] Comment on above: Performed By: #### A BG ####Point of Care testing, CO2 [Moles/Vol] 37.2 mmol/L High 23.0-27.0 [facility] Comment on above: Performed By: #### A BG ####Point of Care testing, HCO3 (Bld) [Moles/Vol] 35.6 mmol/L High 23.0-29.0 [facility] Comment on above: Performed By: #### A BG ####Point of Care testing, Respiratory Critical [facility] Comment on above: Result Comment: Crit ical Value called on: 11/13/2022 at 05:00PERFORMED BY:[facility] [place], [place] [phone] MEDICAL DIRECTORNATI LAUREN M.D. Performed By: #### A BG ####Point of Care testing, Set Respiratory Rate 20 [facility] Comment on above: Performed By: #### A BG ####Point of Care testing, VBG Draw Site Right Radial [facility] Comment on above: Performed By: #### A BG ####Point of Care testing, Ventilator Mode AC [facility] Comment on above: Performed By: #### A BG ####Point of Care testing, Basic Metabolic Panelon 050 Anion gap [Moles/Vol] 7.9 mmol/L Normal 6.0-15.0 [facility] Comment on above: Performed By: #### S CAN CBC, BMP ####[facility] [id number] [facility] [place] [address] [place] Calcium [Mass/Vol] 8.0 mg/dL Low 8.6-10.3 [facility] Comment on above: Performed By: #### S CAN CBC, BMP ####[facility] [id number] [place] [address] [place] Chloride [Moles/Vol] 96 mmol/L Low 98-107 [facility] Comment on above: Performed By: #### S CAN CBC, BMP ####[facility] Whq1723 [place] [address] [place] CO2 [Moles/Vol] 37.5 mmol/L High 21.0-31.0 [facility] Comment on above: Performed By: #### S CAN CBC, BMP ####[facility] Svr1765 [place] [address] [place] Creatinine [Mass/Vol] 0.42 mg/dL Low 0.70-1.30 [facility] Comment on above: Performed By: #### S CAN CBC, BMP ####[facility] Qoa8703 [place] [address] [place] Creatinine Clr Calc Pharmacy 263.49 [facility] Comment on above: Result Comment: PERF ORMED BY:[address] [place]ba[place]fred[place], [place] [phone] MEDICAL DIRECTORNATI LAUREN M.D. Performed By: #### S CAN CBC, BMP ####[address] [place] [address] [place] GFR/1.73 sq M.predicted MDRD (S/P/Bld) [Vol rate/Area] mL/min/{1.73_m2} [facility] Comment on above: Performed By: #### S CAN CBC, BMP ####[facility] Twh[address]20 [place] [address] [place] Glucose [Mass/Vol] 93 mg/dL Normal 70-100 [facility] Comment on above: Result Comment: [place] Glucose Reference Range is dependent on time and content of last meal. Glucose of more than 200 mg/dL in a nonstressed, ambulatory subject supports the diagnosis of Diabetes Mellitus. ADA recommended reference range Performed By: #### S CAN CBC, BMP ####[facility] Cog[address] [place] [address] [facility] Potassium [Moles/Vol] 4.4 mmol/L Normal 3.5-5.1 [facility] Comment on above: Performed By: #### S CAN CBC, BMP ####[facility] Rsm[address]81 [place] [address] [facility] Sodium [Moles/Vol] 137 mmol/L Normal 136-145 [facility] Comment on above: Performed By: #### S CAN CBC, BMP ####[facility] [id number] [place] [id number] [facility] Urea nitrogen [Mass/Vol] 20 mg/dL Normal 7-25 [facility] Comment on above: Performed By: #### S CAN CBC, BMP ####[facility] [id number] [place] [id number] [facility] Glucose Poct Glucometerson 0 11-13-2022 Commemt1 Glu2: Cleaned Meter [facility] Comment on above: Result Comment: PERF ORMED BY:[address] NGOZIRosalbaAlfreditoALE, [place] [phone] MEDICAL DIRECTORNATI LAUREN M.D. Performed By: #### G LULS ####Point of Care testing, Glucose [Mass/Vol] 121 mg/dL [facility] Comment on above: Result Comment: [facility] Glucose Reference Range is dependent on time and content of last meal. Glucose of more than 200 mg/dL in a nonstressed, ambulatory subject supports the diagnosis of Diabetes Mellitus. Performed By: #### G LULS ####Point of Care testing, Commemt1 Glu2: Cleaned Meter [facility] Comment on above: Result Comment: PERF ORMED BY:[place] [place]ba[place]fredito[place], [place] [phone] MEDICAL DIRECTORNATI LAUREN M.D. Performed By: #### G LULS ####Point of Care testing, Glucose [Mass/Vol] 87 mg/dL [facility] Comment on above: Result Comment: [facility] Glucose Reference Range is dependent on time and content of last meal. Glucose of more than 200 mg/dL in a nonstressed, ambulatory subject supports the diagnosis of Diabetes Mellitus. Performed By: #### G LULS ####Point of Care testing, Commemt1 Glu2: Cleaned Meter [facility] Comment on above: Result Comment: PERF ORMED BY:[place] [address] [place] [place], [place] [phone] MEDICAL DIRECTORNATI LAUREN M.D. Performed By: #### G LULS ####Point of Care testing, Glucose [Mass/Vol] 96 mg/dL Normal [facility] Comment on above: Result Comment: [place] [facility] Glucose Reference Range is dependent on time and content of last meal. Glucose of more than 200 mg/dL in a nonstressed, ambulatory subject supports the diagnosis of Diabetes Mellitus. Performed By: #### G LULS ####Point of Care testing, Commemt1 Glu2: Cleaned Meter [facility] Comment on above: Result Comment: PERF ORMED BY:[address] [place], [place] [phone] MEDICAL DIRECTORNATI LAUREN M.D. Performed By: #### G LULS ####Point of Care testing, Glucose [Mass/Vol] 111 mg/dL Normal [facility] Comment on above: Result Comment: [place] om Glucose Reference Range is dependent on time and content of last meal. Glucose of more than 200 mg/dL in a nonstressed, ambulatory subject supports the diagnosis of Diabetes Mellitus. Performed By: #### G LULS ####Point of Care testing, Scan and CBCon 11-13-2022 Basophils (Bld) [#/Vol] 0.2 10*3/uL Normal 0.0-0.2 [facility] Comment on above: Performed By: #### S CAN CBC, BMP ####[facility] [id number] [place] [address] [facility] Basophils/100 WBC (Bld) 1.2 % Normal . [facility] Comment on above: Performed By: #### S CAN CBC, BMP ####[place] [id number] Eosinophils (Bld) [#/Vol] 0.3 10*3/uL Normal 0.0-0.45 [facility] Comment on above: Performed By: #### S CAN CBC, BMP ####[address] Eosinophils/100 WBC (Bld) 2.0 % Normal . [facility] Comment on above: Performed By: #### S CAN CBC, BMP ####[address] Erythrocyte distribution width (RBC) [Ratio] 14.3 % Normal 12.0-14.8 [facility] Comment on above: Performed By: #### S CAN CBC, BMP ####[address] Hematocrit (Bld) [Volume fraction] 30.0 % Low 38.8-50.0 [facility] Comment on above: Performed By: #### S CAN CBC, BMP ####[address] Hemoglobin (Bld) [Mass/Vol] 9.8 g/dL Low 13.0-17.0 [facility] Comment on above: Performed By: #### S CAN CBC, BMP ####[address] Hypochromasia Moderate Normal [facility] Comment on above: Performed By: #### S CAN CBC, BMP ####[address] Lymphocytes (Bld) [#/Vol] 3.0 10*3/uL Normal 1.00-4.8 [facility] Comment on above: Performed By: #### S CAN CBC, BMP ####[address] Lymphocytes/100 WBC (Bld) 19.1 % Normal . [facility] Comment on above: Performed By: #### S CAN CBC, BMP ####[place] [address] MCH (RBC) [Entitic mass] 29.6 pg Normal 27.5-35.2 [facility] Comment on above: Performed By: #### S CAN CBC, BMP ####[address] MCV (RBC) [Entitic vol] 90.9 fL Normal 83.5-101 [facility] Comment on above: Performed By: #### S CAN CBC, BMP ####[address] Mean Corpuscular HGB Conc 32.6 g/dL Normal 32.5-35.6 [facility] Comment on above: Performed By: #### S CAN CBC, BMP ####[address] Monocytes (Bld) [#/Vol] 1.2 10*3/uL High 0.0-0.8 [facility] Comment on above: Performed By: #### S CAN CBC, BMP ####[address] Monocytes/100 WBC (Bld) 7.7 % Normal . [facility] Comment on above: Performed By: #### S CAN CBC, BMP ####[address] Neutrophils (Bld) [#/Vol] 11.1 10*3/uL High 1.8-7.7 [facility] Comment on above: Performed By: #### S CAN CBC, BMP ####[address] Neutrophils/100 WBC (Bld) 70.0 % Normal . [facility] Comment on above: Performed By: #### S CAN CBC, BMP ####[address] NRBC% 0.1 /100{WBC} Normal 0-0.5 [facility] Comment on above: Performed By: #### S CAN CBC, BMP ####[address] [place] [address] [facility] Platelet Estimate Normal Normal Normal [facility] Comment on above: Performed By: #### S CAN CBC, BMP ####[place] [id number] [facility] Platelet mean volume (Bld) [Entitic vol] 7.0 fL Normal 6.6-10.1 [facility] Comment on above: Performed By: #### S CAN CBC, BMP ####[place] [id number] [facility] Platelet Morphology Normal Normal Normal [facility] Comment on above: Result Comment: PERF ORMED BY:[address] [place], [place] [phone] MEDICAL DIRECTORNATI LAUREN M.D. Performed By: #### S CAN CBC, BMP ####[place] [id number] [facility] Platelets (Bld) [#/Vol] 435 10*3/uL Normal 150-450 [facility] Comment on above: Performed By: #### S CAN CBC, BMP ####[place] [id number] [facility] Polychromasia Slight Normal [facility] Comment on above: Performed By: #### S CAN CBC, BMP ####[place] [id number] [facility] RBC (Bld) [#/Vol] 3.30 10*6/uL Low 3.90-5.60 [facility] Comment on above: Performed By: #### S CAN CBC, BMP ####[place] [id number] [facility] Stomatocytes Slight Normal [facility] Comment on above: Performed By: #### S CAN CBC, BMP ####[place] [id number] [facility] WBC (Bld) [#/Vol] 15.9 10*3/uL High 4.1-10.5 [facility] Comment on above: Performed By: #### S CAN CBC, BMP ####[facility] [id number] [place] [address] [facility] XR chest 1V portableon 11-13 XR chest 1V portable Normal [facility] Arterial Blood Gason 023 ABG Base Excess 7.5 mmol/L High -3.0-3.0 [facility] Comment on above: Performed By: #### A BG ####Point of Care testing, ABG Frac Inspired O2 45 % [facility] Comment on above: Performed By: #### A BG ####Point of Care testing, ABG Oxygen Content 6.3 mmol/L Low 6.6-9.7 [facility] Comment on above: Performed By: #### A BG ####Point of Care testing, ABG Oxygen Saturation 89.5 % Low 95.0-100.0 [facility] Comment on above: Performed By: #### A BG ####Point of Care testing, ABG PCO2 50.7 mm[Hg] Off scale high 35.0-45.0 [facility] Comment on above: Performed By: #### A BG ####Point of Care testing, ABG PEEP 8 [facility] Comment on above: Performed By: #### A BG ####Point of Care testing, ABG PH 7.43 Normal 7.35-7.45 [facility] Comment on above: Performed By: #### A BG ####Point of Care testing, ABG PO2 59.2 mm[Hg] Low 80.0-100.0 [facility] Comment on above: Performed By: #### A BG ####Point of Care testing, ABG TV 500 mL [facility] Comment on above: Performed By: #### A BG ####Point of Care testing, CO2 [Moles/Vol] 34.5 mmol/L High 23.0-27.0 [facility] Comment on above: Performed By: #### A BG ####Point of Care testing, HCO3 (Bld) [Moles/Vol] 33.0 mmol/L High 23.0-29.0 [facility] Comment on above: Performed By: #### A BG ####Point of Care testing, Respiratory Critical [facility] Comment on above: Result Comment: Crit ical Value called on: 11/12/2022 at 04:59PERFORMED BY:[address] [place], [place] [phone] MEDICAL DIRECTORNATI LAUREN M.D. Performed By: #### A BG ####Point of Care testing, Set Respiratory Rate 20 [facility] Comment on above: Performed By: #### A BG ####Point of Care testing, VBG Draw Site Right Radial [facility] Comment on above: Performed By: #### A BG ####Point of Care testing, Ventilator Mode AC [facility] Comment on above: Performed By: #### A BG ####Point of Care testing, Basic Metabolic Panelon 05 Anion gap [Moles/Vol] 7.0 mmol/L Normal 6.0-15.0 [facility] Comment on above: Performed By: #### B MP, DIFF CBC ####[facility] [id number] [place] [address] [facility] Calcium [Mass/Vol] 7.7 mg/dL Low 8.6-10.3 [facility] Comment on above: Performed By: #### B MP, DIFF CBC ####[facility] [id number] [place] [address] [place] Chloride [Moles/Vol] 99 mmol/L Normal 98-107 [facility] Comment on above: Performed By: #### B MP, DIFF CBC ####[facility] [id number] [place] [address] [place] CO2 [Moles/Vol] 36.1 mmol/L High 21.0-31.0 [facility] Comment on above: Performed By: #### B MP, DIFF CBC ####[facility] [id number] [place] [address] [place] Creatinine [Mass/Vol] 0.39 mg/dL Low 0.70-1.30 [facility] Comment on above: Performed By: #### B MP, DIFF CBC ####[place] [address] [place] [address] [place] Creatinine Clr Calc Pharmacy 278.31 [facility] Comment on above: Result Comment: PERF ORMED BY:[address] [place]fred[place], [place] [phone] MEDICAL ALEKSANDAR LAUREN M.D. Performed By: #### B MP, DIFF CBC ####[facility] [id number] [place] [address] [place] GFR/1.73 sq M.predicted MDRD (S/P/Bld) [Vol rate/Area] mL/min/{1.73_m2} [facility] Comment on above: Performed By: #### B MP, DIFF CBC ####[place] [address] [place] [address] [facility] Glucose [Mass/Vol] 128 mg/dL High 70-100 [facility] Comment on above: Result Comment: [place] Glucose Reference Range is dependent on time and content of last meal. Glucose of more than 200 mg/dL in a nonstressed, ambulatory subject supports the diagnosis of Diabetes Mellitus. ADA recommended reference range Performed By: #### B MP, DIFF CBC ####[place] [id number] [place] [address] [place] Potassium [Moles/Vol] 4.1 mmol/L Normal 3.5-5.1 [facility] Comment on above: Performed By: #### B MP, DIFF CBC ####[place] [address] [place] [address] [place] Sodium [Moles/Vol] 138 mmol/L Normal 136-145 [facility] Comment on above: Performed By: #### B MP, DIFF CBC ####[facility] [id number] [place] [address] [place] Urea nitrogen [Mass/Vol] 15 mg/dL Normal 7-25 [facility] Comment on above: Performed By: #### B MP, DIFF CBC ####[place] [id number] [facility] Diff and CBCon 11-12-2022 Anisocytosis Ql (Bld) Slight Normal [facility] Comment on above: Performed By: #### B MP, DIFF CBC ####[place] [id number] [facility] Erythrocyte distribution width (RBC) [Ratio] 13.9 % Normal 12.0-14.8 [facility] Comment on above: Performed By: #### B MP, DIFF CBC ####[address] Hematocrit (Bld) [Volume fraction] 29.5 % Low 38.8-50.0 [facility] Comment on above: Performed By: #### B MP, DIFF CBC ####[address] Hemoglobin (Bld) [Mass/Vol] 9.9 g/dL Low 13.0-17.0 [facility] Comment on above: Performed By: #### B MP, DIFF CBC ####[place] [id number] [facility] Hypochromasia Moderate Normal [facility] Comment on above: Performed By: #### B MP, DIFF CBC ####[place] [id number] [facility] Lymphocytes/100 WBC (Bld) 13 % Low 18-42 [facility] Comment on above: Performed By: #### B MP, DIFF CBC ####[place] [id number] [facility] MCH (RBC) [Entitic mass] 30.5 pg Normal 27.5-35.2 [facility] Comment on above: Performed By: #### B MP, DIFF CBC ####[place] [id number] [facility] MCV (RBC) [Entitic vol] 91.1 fL Normal 83.5-101 [facility] Comment on above: Performed By: #### B MP, DIFF CBC ####[address] [place] [address] [facility] Mean Corpuscular HGB Conc 33.5 g/dL Normal 32.5-35.6 [facility] Comment on above: Performed By: #### B MP, DIFF CBC ####[place] [id number] [facility] Metamyelocytes 3 % High 0-0 [facility] Comment on above: Performed By: #### B MP, DIFF CBC ####[address] Monocytes/100 WBC (Bld) 4 % Normal 2-11 [facility] Comment on above: Performed By: #### B MP, DIFF CBC ####[address] Myelocytes 3 % High 0-0 [facility] Comment on above: Performed By: #### B MP, DIFF CBC ####[place] [id number] [facility] Platelet Estimate Normal Normal Normal [facility] Comment on above: Performed By: #### B MP, DIFF CBC ####[place] [id number] [facility] Platelet mean volume (Bld) [Entitic vol] 7.1 fL Normal 6.6-10.1 [facility] Comment on above: Result Comment: PERF ORMED BY:[place] [address] [place] [place], [place] [phone] MEDICAL DIRECTORNATI LAUREN M.D. Performed By: #### B MP, DIFF CBC ####[place] [id number] [facility] Platelet Morphology Normal Normal Normal [facility] Comment on above: Result Comment: PERF ORMED BY:[address] [place], [place] [phone] MEDICAL DIRECTORNATI LAUREN M.D. Performed By: #### B MP, DIFF CBC ####[place] [phone] [place] Platelets (Bld) [#/Vol] 375 10*3/uL Normal 150-450 [facility] Comment on above: Performed By: #### B MP, DIFF CBC ####[place] [id number] RBC (Bld) [#/Vol] 3.24 10*6/uL Low 3.90-5.60 [facility] Comment on above: Performed By: #### B MP, DIFF CBC ####[address] Segmented neutrophils/100 WBC (Bld) 78 % High 50-70 [facility] Comment on above: Performed By: #### B MP, DIFF CBC ####[place] [id number] WBC (Bld) [#/Vol] 18.3 10*3/uL High 4.1-10.5 [facility] Comment on above: Performed By: #### B MP, DIFF CBC ####[place] [id number] [facility] Glucose Poct Glucometerson 0 11-12-2022 Commemt1 Glu2: Cleaned Meter Normal [facility] Comment on above: Result Comment: PERF ORMED BY:[address] [place], [place] [phone] MEDICAL DIRECTORNATI LAUREN M.D. Performed By: #### G BENJAMIN ####Point of Care testing, Glucose [Mass/Vol] 125 mg/dL Normal [facility] Comment on above: Result Comment: [place] Glucose Reference Range is dependent on time and content of last meal. Glucose of more than 200 mg/dL in a nonstressed, ambulatory subject supports the diagnosis of Diabetes Mellitus. Performed By: #### G BENJAMIN ####Point of Care testing, Glucose [Mass/Vol] 133 mg/dL Normal [facility] Comment on above: Result Comment: [place] Glucose Reference Range is dependent on time and content of last meal. Glucose of more than 200 mg/dL in a nonstressed, ambulatory subject supports the diagnosis of Diabetes Mellitus.PERFORMED BY:[place] [address] [place] [place], [place] [phone] MEDICAL DIRECTORNATI LAUREN M.D. Performed By: #### G LULS ####Point of Care testing, Commemt1 Glu2: Cleaned Meter [facility] Comment on above: Result Comment: PERF ORMED BY:[place] [address] [place] [place], [place] [phone] MEDICAL ALEKSANDAR LAUREN M.D. Performed By: #### G LULS ####Point of Care testing, Glucose [Mass/Vol] 122 mg/dL Normal [facility] Comment on above: Result Comment: [place] om Glucose Reference Range is dependent on time and content of last meal. Glucose of more than 200 mg/dL in a nonstressed, ambulatory subject supports the diagnosis of Diabetes Mellitus. Performed By: #### G LULS ####Point of Care testing, Commemt1 Glu2: Cleaned Meter [facility] Comment on above: Result Comment: PERF ORMED BY:[address] [place], [place] [phone] MEDICAL DIRECTORNATI LAUREN M.D. Performed By: #### G LULS ####Point of Care testing, Glucose [Mass/Vol] 120 mg/dL Normal [facility] Comment on above: Result Comment: [place] om Glucose Reference Range is dependent on time and content of last meal. Glucose of more than 200 mg/dL in a nonstressed, ambulatory subject supports the diagnosis of Diabetes Mellitus. Performed By: #### G LULS ####Point of Care testing, XR chest 1V portableon 11-12 XR chest 1V portable [facility] XR chest 1V portable [facility] Arterial Blood Gason 023 ABG Base Excess 6.6 mmol/L High -3.0-3.0 [facility] Comment on above: Performed By: #### A BG ####Point of Care testing, ABG Frac Inspired O2 60 % Normal [facility] Comment on above: Performed By: #### A BG ####Point of Care testing, ABG Oxygen Content 6.3 mmol/L Low 6.6-9.7 [facility] Comment on above: Performed By: #### A BG ####Point of Care testing, ABG Oxygen Saturation 91.6 % Low 95.0-100.0 [facility] Comment on above: Performed By: #### A BG ####Point of Care testing, ABG PCO2 48.7 mm[Hg] High 35.0-45.0 [facility] Comment on above: Performed By: #### A BG ####Point of Care testing, ABG PEEP 8 [facility] Comment on above: Performed By: #### A BG ####Point of Care testing, ABG PH 7.43 Normal 7.35-7.45 [facility] Comment on above: Performed By: #### A BG ####Point of Care testing, ABG PO2 63.6 mm[Hg] Low 80.0-100.0 [facility] Comment on above: Performed By: #### A BG ####Point of Care testing, ABG TV 500 mL [facility] Comment on above: Performed By: #### A BG ####Point of Care testing, CO2 [Moles/Vol] 33.3 mmol/L High 23.0-27.0 [facility] Comment on above: Performed By: #### A BG ####Point of Care testing, HCO3 (Bld) [Moles/Vol] 31.8 mmol/L High 23.0-29.0 [facility] Comment on above: Performed By: #### A BG ####Point of Care testing, Respiratory Critical [facility] Comment on above: Result Comment: Crit ical Value called on: 11/11/2022 at 05:36PERFORMED BY:[place] [address] [place] [place], [place] [phone] MEDICAL DIRECTORNATI LAUREN M.D. Performed By: #### A BG ####Point of Care testing, Set Respiratory Rate 20 [facility] Comment on above: Performed By: #### A BG ####Point of Care testing, VBG Draw Site Right Radial [facility] Comment on above: Performed By: #### A BG ####Point of Care testing, Ventilator Mode AC [facility] Comment on above: Performed By: #### A BG ####Point of Care testing, Basic Metabolic Panelon 050 Anion gap [Moles/Vol] 7.7 mmol/L Normal 6.0-15.0 [facility] Comment on above: Performed By: #### T RIG, BMP, DIFF CBC ####[place] [id number] [facility] Calcium [Mass/Vol] 7.5 mg/dL Low 8.6-10.3 [facility] Comment on above: Performed By: #### T RIG, BMP, DIFF CBC ####[place] [id number] [facility] Chloride [Moles/Vol] 99 mmol/L Normal 98-107 [facility] Comment on above: Performed By: #### T RIG, BMP, DIFF CBC ####[place] [id number] [facility] CO2 [Moles/Vol] 34.3 mmol/L High 21.0-31.0 [facility] Comment on above: Performed By: #### T RIG, BMP, DIFF CBC ####[place] [id number] [facility] Creatinine [Mass/Vol] 0.36 mg/dL Low 0.70-1.30 [facility] Comment on above: Performed By: #### T RIG, BMP, DIFF CBC ####[place] [id number] [facility] Creatinine Clr Calc Pharmacy 301.11 [facility] Comment on above: Performed By: #### T RIG, BMP, DIFF CBC ####[place] [id number] [place] GFR/1.73 sq M.predicted MDRD (S/P/Bld) [Vol rate/Area] mL/min/{1.73_m2} Normal [facility] Comment on above: Performed By: #### T RIG BMP, DIFF CBC ####[place] [id number] [facility] Glucose [Mass/Vol] 108 mg/dL High 70-100 [facility] Comment on above: Result Comment: [facility] Glucose Reference Range is dependent on time and content of last meal. Glucose of more than 200 mg/dL in a nonstressed, ambulatory subject supports the diagnosis of Diabetes Mellitus. ADA recommended reference range Performed By: #### T RIG BMP, DIFF CBC ####[place] [id number] [facility] Potassium [Moles/Vol] 4.0 mmol/L Normal 3.5-5.1 [facility] Comment on above: Performed By: #### T RIG BMP, DIFF CBC ####[address] Sodium [Moles/Vol] 137 mmol/L Normal 136-145 [facility] Comment on above: Performed By: #### T RIG BMP, DIFF CBC ####[place] [id number] [facility] Urea nitrogen [Mass/Vol] 14 mg/dL Normal 7-25 [facility] Comment on above: Performed By: #### T RIG BMP, DIFF CBC ####[place] [id number] [place] Diff and CBCon 11-11-2022 Anisocytosis Ql (Bld) Slight Normal [facility] Comment on above: Performed By: #### T RIG BMP, DIFF CBC ####[place] [id number] [place] Eosinophils/100 WBC (Bld) 2 % Normal 1-3 [facility] Comment on above: Performed By: #### T RIG, BMP, DIFF CBC ####[place] [id number] [facility] Erythrocyte distribution width (RBC) [Ratio] 14.3 % Normal 12.0-14.8 [facility] Comment on above: Performed By: #### T RIG, BMP, DIFF CBC ####[address] Hematocrit (Bld) [Volume fraction] 31.2 % Low 38.8-50.0 [facility] Comment on above: Performed By: #### T RIG, BMP, DIFF CBC ####[address] Hemoglobin (Bld) [Mass/Vol] 10.2 g/dL Low 13.0-17.0 [facility] Comment on above: Performed By: #### T RIG BMP, DIFF CBC ####[address] Hypochromasia Moderate Normal [facility] Comment on above: Performed By: #### T RIG BMP, DIFF CBC ####[address] Lymphocytes/100 WBC (Bld) 11 % Low 18-42 [facility] Comment on above: Performed By: #### T RIG BMP, DIFF CBC ####[address] MCH (RBC) [Entitic mass] 29.9 pg Normal 27.5-35.2 [facility] Comment on above: Performed By: #### T RIG, BMP, DIFF CBC ####[address] MCV (RBC) [Entitic vol] 91.8 fL Normal 83.5-101 [facility] Comment on above: Performed By: #### T RIG, BMP, DIFF CBC ####[address] Mean Corpuscular HGB Conc 32.6 g/dL Normal 32.5-35.6 [facility] Comment on above: Performed By: #### T RIG, BMP, DIFF CBC ####[address] Metamyelocytes 2 % High 0-0 [facility] Comment on above: Performed By: #### T RIG, BMP, DIFF CBC ####[address] Monocytes/100 WBC (Bld) 6 % Normal 2-11 [facility] Comment on above: Performed By: #### T RIG, BMP, DIFF CBC ####[address] Myelocytes 1 % High 0-0 [facility] Comment on above: Performed By: #### T RIG, BMP, DIFF CBC ####[address] Platelet Estimate Normal Normal Normal [facility] Comment on above: Performed By: #### T RIG, BMP, DIFF CBC ####[address] Platelet mean volume (Bld) [Entitic vol] 6.8 fL Normal 6.6-10.1 [facility] Comment on above: Result Comment: PERF ORMED BY:[address] [place], [place] [phone] MEDICAL ALEKSANDAR LAUREN M.D. Performed By: #### T RIG, BMP, DIFF CBC ####[place] [id number] [facility] Platelet Morphology Normal Normal Normal [facility] Comment on above: Result Comment: PERF ORMED BY:[address] [place], [place] [phone] MEDICAL DIRECTORNATI LAUREN M.D. Performed By: #### T RIG, BMP, DIFF CBC ####[address] Platelets (Bld) [#/Vol] 401 10*3/uL Normal 150-450 [facility] Comment on above: Performed By: #### T RIG, BMP, DIFF CBC ####[address] [place] [address] [facility] Polychromasia Slight Normal [facility] Comment on above: Performed By: #### T RIG BMP, DIFF CBC ####[place] [id number] [facility] RBC (Bld) [#/Vol] 3.40 10*6/uL Low 3.90-5.60 [facility] Comment on above: Performed By: #### T RIG BMP, DIFF CBC ####[place] [id number] [facility] Segmented neutrophils/100 WBC (Bld) 79 % High 50-70 [facility] Comment on above: Performed By: #### T BLACK BMP, DIFF CBC ####[address] WBC (Bld) [#/Vol] 19.1 10*3/uL High 4.1-10.5 [facility] Comment on above: Performed By: #### T KERRI CLEANING, DIFF CBC ####[place] [id number] [facility] Glucose Poct Glucometerson 0 11-11-2022 Glucose [Mass/Vol] 156 mg/dL [facility] Comment on above: Result Comment: [place] Glucose Reference Range is dependent on time and content of last meal. Glucose of more than 200 mg/dL in a nonstressed, ambulatory subject supports the diagnosis of Diabetes Mellitus.PERFORMED BY:[address] [address] [place], [place] [phone] MEDICAL DIRECTORNATI LAUREN M.D. Performed By: #### G LULS ####Point of Care testing, Commemt1 Glu2: Cleaned Meter [facility] Comment on above: Performed By: #### G LULS ####Point of Care testing, Commemt2 SLIDING SCALE COVERA Normal [facility] Comment on above: Result Comment: PERF ORMED BY:[place] [place], [place] [phone] MEDICAL DIRECTORNATI LAUREN M.D. Performed By: #### G LULS ####Point of Care testing, Glucose [Mass/Vol] 158 mg/dL Normal [facility] Comment on above: Result Comment: [place] om Glucose Reference Range is dependent on time and content of last meal. Glucose of more than 200 mg/dL in a nonstressed, ambulatory subject supports the diagnosis of Diabetes Mellitus. Performed By: #### G LULS ####Point of Care testing, Glucose [Mass/Vol] 97 mg/dL Normal [facility] Comment on above: Result Comment: [place] om Glucose Reference Range is dependent on time and content of last meal. Glucose of more than 200 mg/dL in a nonstressed, ambulatory subject supports the diagnosis of Diabetes Mellitus.PERFORMED BY:[address] [place] [place], [place] [phone] MEDICAL DIRECTORNATI LAUREN M.D. Performed By: #### G LULS ####Point of Care testing, Magnesiumon 11-11-2022 Magnesium [Mass/Vol] 2.2 mg/dL Normal 1.9-2.7 [facility] Comment on above: Order Comment: Comme nt please run off blood drawn this morning Result Comment: PERF ORMED BY:[address] [place] [place], [place] [phone] MEDICAL DIRECTORNATI LAUREN M.D. Performed By: #### M G ####[facility] [place], [place] [id number] [facility] No Panel InformationOrdered By: Rubi Ramos on 11-11-2022 Bedside Glucose #2 Comment Sliding scale covera [facility] Triglycerideson 11-11-2022 Triglyceride [Mass/Vol] 143 mg/dL Normal 0-149 [facility] Comment on above: Result Comment: TRIG ATP III CLASSIFICATION TRIG less than 150 mg/dL Normal TRIG 150-199 mg/dL Borderline high TRIG 200-500 mg/dL High TRIG greater than 500 mg/dL Very high Standard traceable to the Center for Disease Conrtrol and Prevention (CDC) test method.PERFORMED BY:[place] [address] [place] [phone] MEDICAL DIRECTORNATI LAUREN M.D. Performed By: #### T RIG, BMP, DIFF CBC ####[facility] Clv[address] [place] [address] [facility] XR chest 1V portableon 11-11 XR chest 1V portable Normal [facility] Arterial Blood Gason 023 ABG Base Excess 8.6 mmol/L High -3.0-3.0 [facility] Comment on above: Performed By: #### A BG ####Point of Care testing, ABG Frac Inspired O2 40 % [facility] Comment on above: Performed By: #### A BG ####Point of Care testing, ABG Oxygen Content 6.6 mmol/L Normal 6.6-9.7 [facility] Comment on above: Performed By: #### A BG ####Point of Care testing, ABG Oxygen Saturation 92.0 % Low 95.0-100.0 [facility] Comment on above: Performed By: #### A BG ####Point of Care testing, ABG PCO2 47.0 mm[Hg] High 35.0-45.0 [facility] Comment on above: Performed By: #### A BG ####Point of Care testing, ABG PEEP 6 [facility] Comment on above: Performed By: #### A BG ####Point of Care testing, ABG PH 7.47 High 7.35-7.45 [facility] Comment on above: Performed By: #### A BG ####Point of Care testing, ABG PO2 61.7 mm[Hg] Low 80.0-100.0 [facility] Comment on above: Performed By: #### A BG ####Point of Care testing, ABG TV 500 mL [facility] Comment on above: Performed By: #### A BG ####Point of Care testing, CO2 [Moles/Vol] 34.8 mmol/L High 23.0-27.0 [facility] Comment on above: Performed By: #### A BG ####Point of Care testing, HCO3 (Bld) [Moles/Vol] 33.4 mmol/L High 23.0-29.0 [facility] Comment on above: Performed By: #### A BG ####Point of Care testing, Respiratory Critical [facility] Comment on above: Result Comment: Crit ical Value called on: 11/10/2022 at 05:16PERFORMED BY:[address] [place], [place] [phone] MEDICAL DIRECTORNATI LAUREN M.D. Performed By: #### A BG ####Point of Care testing, Set Respiratory Rate 20 [facility] Comment on above: Performed By: #### A BG ####Point of Care testing, VBG Draw Site Left Brachial [facility] Comment on above: Performed By: #### A BG ####Point of Care testing, Ventilator Mode AC [facility] Comment on above: Performed By: #### A BG ####Point of Care testing, Basic Metabolic Panelon Anion gap [Moles/Vol] 7.5 mmol/L Normal 6.0-15.0 [facility] Comment on above: Performed By: #### D IFF CBC, BMP ####[facility] [id number] [place] [address] [facility] Calcium [Mass/Vol] 7.5 mg/dL Low 8.6-10.3 [facility] Comment on above: Performed By: #### D IFF CBC, BMP ####[facility] [id number] [place] [address] [place] Chloride [Moles/Vol] 100 mmol/L Normal 98-107 [facility] Comment on above: Performed By: #### D IFF CBC, BMP ####[facility] [id number] [place] [address] [place] CO2 [Moles/Vol] 34.4 mmol/L High 21.0-31.0 [facility] Comment on above: Performed By: #### D IFF CBC, BMP ####[facility] [id number] [place] [address] [facility] Creatinine [Mass/Vol] 0.40 mg/dL Low 0.70-1.30 [facility] Comment on above: Performed By: #### D IFF CBC, BMP ####[facility] Zhr5347 [place] [address] [place] Creatinine Clr Calc Pharmacy 271.94 [facility] Comment on above: Result Comment: PERF ORMED BY:[address] [place], [place] [phone] MEDICAL DIRECTORNATI LAUREN M.D. Performed By: #### D IFF CBC, BMP ####[address] [place] [address] [place] GFR/1.73 sq M.predicted MDRD (S/P/Bld) [Vol rate/Area] mL/min/{1.73_m2} [facility] Comment on above: Performed By: #### D IFF CBC, BMP ####[address] [place] [address] [facility] Glucose [Mass/Vol] 111 mg/dL High 70-100 [facility] Comment on above: Result Comment: [place] Glucose Reference Range is dependent on time and content of last meal. Glucose of more than 200 mg/dL in a nonstressed, ambulatory subject supports the diagnosis of Diabetes Mellitus. ADA recommended reference range Performed By: #### D IFF CBC, BMP ####[facility] [id number] [place] [address] [place] Potassium [Moles/Vol] 3.9 mmol/L Normal 3.5-5.1 [facility] Comment on above: Performed By: #### D IFF CBC, BMP ####[facility] Joi7753 [place] [address] [facility] Sodium [Moles/Vol] 138 mmol/L Normal 136-145 [facility] Comment on above: Performed By: #### D IFF CBC, BMP ####[facility] [id number] [address] Urea nitrogen [Mass/Vol] 19 mg/dL Normal 7-25 [facility] Comment on above: Performed By: #### D IFF CBC, BMP ####[address] Blood Cultureon 11-10-2022 Bacteria identified Cx Nom (Bld) NO GROWTH 5 DAYS PERFORMED BY: [facility] [address] [place] [address] PATHOLOGIST MORTAR CARRIER NATI LAUREN M.D. [facility] Comment on above: Performed By: #### C UBLD ####[address] Diff and CBCon 11-10-2022 Erythrocyte distribution width (RBC) [Ratio] 13.9 % Normal 12.0-14.8 [facility] Comment on above: Performed By: #### D IFF CBC, BMP ####[address] Hematocrit (Bld) [Volume fraction] 30.5 % Low 38.8-50.0 [facility] Comment on above: Performed By: #### D IFF CBC, BMP ####[address] Hemoglobin (Bld) [Mass/Vol] 10.0 g/dL Low 13.0-17.0 [facility] Comment on above: Performed By: #### D IFF CBC, BMP ####[address] Hypochromasia Moderate Normal [facility] Comment on above: Performed By: #### D IFF CBC, BMP ####[address] MCH (RBC) [Entitic mass] 29.9 pg Normal 27.5-35.2 [facility] Comment on above: Performed By: #### D IFF CBC, BMP ####[address] MCV (RBC) [Entitic vol] 91.2 fL Normal 83.5-101 [facility] Comment on above: Performed By: #### D IFF CBC, BMP ####[address] [place] [address] [facility] Mean Corpuscular HGB Conc 32.8 g/dL Normal 32.5-35.6 [facility] Comment on above: Performed By: #### D IFF CBC, BMP ####[address] [place] [address] [facility] Platelet Estimate Normal Normal Normal [facility] Comment on above: Performed By: #### D IFF CBC, BMP ####[address] [place] [address] [facility] Platelet mean volume (Bld) [Entitic vol] 6.9 fL Normal 6.6-10.1 [facility] Comment on above: Result Comment: PERF ORMED BY:[address] [place], [place] [phone] MEDICAL DIRECTORNATI LAUREN M.D. Performed By: #### D IFF CBC, BMP ####[address] [address] [facility] Platelet Morphology Normal Normal Normal [facility] Comment on above: Result Comment: PERF ORMED BY:[address] [place], [place] [phone] MEDICAL DIRECTORNATI LAUREN M.D. Performed By: #### D IFF CBC, BMP ####[address] [address] [facility] Platelets (Bld) [#/Vol] 375 10*3/uL Normal 150-450 [facility] Comment on above: Performed By: #### D IFF CBC, BMP ####[address] [address] [facility] RBC (Bld) [#/Vol] 3.34 10*6/uL Low 3.90-5.60 [facility] Comment on above: Performed By: #### D IFF CBC, BMP ####[facility] [id number] [place] [address] [facility] Stomatocytes Slight Normal [facility] Comment on above: Performed By: #### D IFF CBC, BMP ####[facility] [id number] [place] [address] [facility] Target Cells Slight Normal [facility] Comment on above: Performed By: #### D IFF CBC, BMP ####[address] [place] [address] [facility] WBC (Bld) [#/Vol] 14.4 10*3/uL High 4.1-10.5 [facility] Comment on above: Performed By: #### D IFF CBC, BMP ####[facility] [id number] [place] [address] [facility] Dipstick and Microscopicon 0 11-10-2022 Appearance (U) Clear Normal Clear [facility] Comment on above: Order Comment: Name Collection Type:: Jones Catheter Performed By: #### A DDONUAPLUS ####[address] [address] [facility] Bacteria,Urine None Seen Normal None Seen [facility] Comment on above: Order Comment: Name Collection Type:: Jones Catheter Performed By: #### A DDONUAPLUS ####[address] [address] [facility] Bilirubin,Urine Negative Normal Negative [facility] Comment on above: Order Comment: Name Collection Type:: Jones Catheter Performed By: #### A DDONUAPLUS ####[address] [address] [facility] Color (U) Yellow Normal Yellow [facility] Comment on above: Order Comment: Name Collection Type:: Jones Catheter Performed By: #### A DDONUAPLUS ####[address] [address] [facility] Glucose Ql (U) Normal Normal Normal [facility] Comment on above: Order Comment: Name Collection Type:: Jones Catheter Performed By: #### A DDONUAPLUS ####[address] [address] [facility] Hyaline Casts,Urine None Seen Normal 0-8 [facility] Comment on above: Order Comment: Name Collection Type:: Jones Catheter Result Comment: PERF ORMED BY:[address] [place] [place], [place] [phone] MEDICAL DIRECTORNATI LAUREN M.D. Performed By: #### A DDONUAPLUS ####[place] [id number] [facility] Ketones Ql (U) Negative Normal Negative [facility] Comment on above: Order Comment: Name Collection Type:: Jones Catheter Performed By: #### A DDONUAPLUS ####[id number] [facility] Leukocyte esterase Test strip Ql (U) Negative Normal Negative [facility] Comment on above: Order Comment: Name Collection Type:: Jones Catheter Performed By: #### A DDONUAPLUS ####[id number] [facility] Nitrite,Urine Negative Normal Negative [facility] Comment on above: Order Comment: Name Collection Type:: Jones Catheter Performed By: #### A DDONUAPLUS ####[place] [id number] [facility] Occult Blood,Urine Trace High Negative [facility] Comment on above: Order Comment: Name Collection Type:: Jones Catheter Result Comment: PERF ORMED BY:[place] [place], [place] [phone] MEDICAL DIRECTORNATI LAUREN M.D. Performed By: #### A DDONUAPLUS ####[id number] [facility] pH (U) 7.5 [pH] Normal 5.0-9.0 [facility] Comment on above: Order Comment: Name Collection Type:: Jones Catheter Performed By: #### A DDONUAPLUS ####[id number] [facility] Protein,Urine Negative Normal Negative [facility] Comment on above: Order Comment: Name Collection Type:: Jones Catheter Performed By: #### A DDONUAPLUS ####[address] [address] [facility] RBC,Urine 10-19 High 0-4 [facility] Comment on above: Order Comment: Name Collection Type:: Jones Catheter Performed By: #### A DDONUAPLUS ####[address] [address] [facility] Specificy Dow,Urine 1.016 Normal 1.001-1.03 0 [facility] Comment on above: Order Comment: Name Collection Type:: Jones Catheter Performed By: #### A DDONUAPLUS ####[address] [address] [facility] Squamous Epithelial Cell,Urine 0-1 Normal 0-2 [facility] Comment on above: Order Comment: Name Collection Type:: Jones Catheter Performed By: #### A DDONUAPLUS ####[address] [address] [facility] Urobilinogen,Urine Normal Normal Normal [facility] Comment on above: Order Comment: Name Collection Type:: Jones Catheter Performed By: #### A DDONUAPLUS ####[address] [address] [facility] WBC,Urine 3-4 Normal 0-4 [facility] Comment on above: Order Comment: Name Collection Type:: Jones Catheter Performed By: #### A DDONUAPLUS ####[address] [address] [facility] Glucose Poct Glucometerson 0 11-10-2022 Glucose [Mass/Vol] 147 mg/dL Normal [facility] Comment on above: Result Comment: [place] Glucose Reference Range is dependent on time and content of last meal. Glucose of more than 200 mg/dL in a nonstressed, ambulatory subject supports the diagnosis of Diabetes Mellitus.PERFORMED BY:[address] [place], [place] [phone] MEDICAL ALEKSANDAR LAUREN M.D. Performed By: #### G LUBETY ####Point of Care testing, Glucose [Mass/Vol] 129 mg/dL Normal [facility] Comment on above: Result Comment: [facility] Glucose Reference Range is dependent on time and content of last meal. Glucose of more than 200 mg/dL in a nonstressed, ambulatory subject supports the diagnosis of Diabetes Mellitus.PERFORMED BY:[address] [place], [place] [phone] MEDICAL DIRECTORNATI LAUREN M.D. Performed By: #### G LUBETY ####Point of Care testing, Glucose [Mass/Vol] 148 mg/dL Normal [facility] Comment on above: Result Comment: [facility] Glucose Reference Range is dependent on time and content of last meal. Glucose of more than 200 mg/dL in a nonstressed, ambulatory subject supports the diagnosis of Diabetes Mellitus.PERFORMED BY:[address] [place], [place] [phone] MEDICAL DIRECTORNATI LAUREN M.D. Performed By: #### G LUBETY ####Point of Care testing, XR chest 1V portableon 11-10 XR chest 1V portable Normal [facility] XR chest 1V portable Normal [facility] Arterial Blood Gason 023 ABG Base Excess 5.4 mmol/L High -3.0-3.0 [facility] Comment on above: Performed By: #### A BG ####Point of Care testing, ABG Frac Inspired O2 40 % [facility] Comment on above: Performed By: #### A BG ####Point of Care testing, ABG Oxygen Content 6.9 mmol/L Normal 6.6-9.7 [facility] Comment on above: Performed By: #### A BG ####Point of Care testing, ABG Oxygen Saturation 95.7 % Normal 95.0-100.0 [facility] Comment on above: Performed By: #### A BG ####Point of Care testing, ABG PCO2 52.4 mm[Hg] Off scale high 35.0-45.0 [facility] Comment on above: Performed By: #### A BG ####Point of Care testing, ABG PEEP 9 [facility] Comment on above: Performed By: #### A BG ####Point of Care testing, ABG PH 7.40 Normal 7.35-7.45 [facility] Comment on above: Performed By: #### A BG ####Point of Care testing, ABG PO2 82.4 mm[Hg] Normal 80.0-100.0 [facility] Comment on above: Performed By: #### A BG ####Point of Care testing, ABG TV 500 mL [facility] Comment on above: Performed By: #### A BG ####Point of Care testing, CO2 [Moles/Vol] 33.0 mmol/L High 23.0-27.0 [facility] Comment on above: Performed By: #### A BG ####Point of Care testing, HCO3 (Bld) [Moles/Vol] 31.4 mmol/L High 23.0-29.0 [facility] Comment on above: Performed By: #### A BG ####Point of Care testing, Respiratory Critical [facility] Comment on above: Result Comment: Crit ical Value called on: 11/09/2022 at 05:00PERFORMED BY:[place] [place], [place] [phone] MEDICAL DIRECTORNATI LAUREN M.D. Performed By: #### A BG ####Point of Care testing, Set Respiratory Rate 20 [facility] Comment on above: Performed By: #### A BG ####Point of Care testing, VBG Draw Site Right Radial [facility] Comment on above: Performed By: #### A BG ####Point of Care testing, Ventilator Mode AC [facility] Comment on above: Performed By: #### A BG ####Point of Care testing, Basic Metabolic Panel Anion gap [Moles/Vol] 9.0 mmol/L Normal 6.0-15.0 [facility] Comment on above: Performed By: #### B MP, CBC ####[address] [place] [address] [facility] Calcium [Mass/Vol] 7.7 mg/dL Low 8.6-10.3 [facility] Comment on above: Performed By: #### B MP, CBC ####[address] [place] [address] [facility] Chloride [Moles/Vol] 99 mmol/L Normal 98-107 [facility] Comment on above: Performed By: #### B MP, CBC ####[address] [place] [address] [facility] CO2 [Moles/Vol] 32.5 mmol/L High 21.0-31.0 [facility] Comment on above: Performed By: #### B MP, CBC ####[address] [address] [facility] Creatinine [Mass/Vol] 0.40 mg/dL Low 0.70-1.30 [facility] Comment on above: Performed By: #### B MP, CBC ####[address] [place] [address] [place] Creatinine Clr Calc Pharmacy 270.64 [facility] Comment on above: Result Comment: PERF ORMED BY:[address] [place], [place] [phone] MEDICAL ALEKSANDAR LAUREN M.D. Performed By: #### B MP, CBC ####[address] [address] [place] GFR/1.73 sq M.predicted MDRD (S/P/Bld) [Vol rate/Area] mL/min/{1.73_m2} [facility] Comment on above: Performed By: #### B MP, CBC ####[address] [address] [place] Glucose [Mass/Vol] 160 mg/dL High 70-100 [facility] Comment on above: Result Comment: [facility] Glucose Reference Range is dependent on time and content of last meal. Glucose of more than 200 mg/dL in a nonstressed, ambulatory subject supports the diagnosis of Diabetes Mellitus. ADA recommended reference range Performed By: #### B MP, CBC ####[facility] [id number] [place] [address] [facility] Potassium [Moles/Vol] 4.5 mmol/L Normal 3.5-5.1 [facility] Comment on above: Performed By: #### B MP, CBC ####[facility] [place] [address] [facility] Sodium [Moles/Vol] 136 mmol/L Normal 136-145 [facility] Comment on above: Performed By: #### B MP, CBC ####[facility] [place] [address] [facility] Urea nitrogen [Mass/Vol] 19 mg/dL Normal 7-25 [facility] Comment on above: Performed By: #### B MP, CBC ####[address] [place] [address] [facility] Complete Blood Count Auto Di ffon 11-09-2022 Basophils (Bld) [#/Vol] 0.0 10*3/uL Normal 0.0-0.2 [facility] Comment on above: Result Comment: PERF ORMED BY:[address] [place], [place] [phone] MEDICAL DIRECTORNATI LAUREN M.D. Performed By: #### B MP, CBC ####[address] [address] [facility] Basophils/100 WBC (Bld) 0.1 % Normal . [facility] Comment on above: Performed By: #### B MP, CBC ####[facility] [id number] [place] [address] [facility] Eosinophils (Bld) [#/Vol] 0.0 10*3/uL Normal 0.0-0.45 [facility] Comment on above: Performed By: #### B MP, CBC ####[address] Eosinophils/100 WBC (Bld) 0.0 % Normal . [facility] Comment on above: Performed By: #### B MP, CBC ####[address] Erythrocyte distribution width (RBC) [Ratio] 14.2 % Normal 12.0-14.8 [facility] Comment on above: Performed By: #### B MP, CBC ####[address] Hematocrit (Bld) [Volume fraction] 31.0 % Low 38.8-50.0 [facility] Comment on above: Performed By: #### B MP, CBC ####[address] Hemoglobin (Bld) [Mass/Vol] 10.3 g/dL Low 13.0-17.0 [facility] Comment on above: Performed By: #### B MP, CBC ####[address] Lymphocytes (Bld) [#/Vol] 0.7 10*3/uL Low 1.00-4.8 [facility] Comment on above: Performed By: #### B MP, CBC ####[address] Lymphocytes/100 WBC (Bld) 4.6 % Normal . [facility] Comment on above: Performed By: #### B MP, CBC ####[address] MCH (RBC) [Entitic mass] 30.4 pg Normal 27.5-35.2 [facility] Comment on above: Performed By: #### B MP, CBC ####[address] MCV (RBC) [Entitic vol] 91.1 fL Normal 83.5-101 [facility] Comment on above: Performed By: #### B MP, CBC ####[address] [place] [address] [facility] Mean Corpuscular HGB Conc 33.4 g/dL Normal 32.5-35.6 [facility] Comment on above: Performed By: #### B MP, CBC ####[place] [id number] [facility] Monocytes (Bld) [#/Vol] 0.8 10*3/uL Normal 0.0-0.8 [facility] Comment on above: Performed By: #### B MP, CBC ####[place] [id number] [facility] Monocytes/100 WBC (Bld) 5.2 % Normal . [facility] Comment on above: Performed By: #### B MP, CBC ####[address] Neutrophils (Bld) [#/Vol] 13.1 10*3/uL High 1.8-7.7 [facility] Comment on above: Performed By: #### B MP, CBC ####[place] [id number] [facility] Neutrophils/100 WBC (Bld) 90.1 % Normal . [facility] Comment on above: Performed By: #### B MP, CBC ####[place] [id number] [facility] NRBC% 0.1 /100{WBC} Normal 0-0.5 [facility] Comment on above: Performed By: #### B MP, CBC ####[place] [id number] [facility] Platelet mean volume (Bld) [Entitic vol] 7.0 fL Normal 6.6-10.1 [facility] Comment on above: Performed By: #### B MP, CBC ####[place] [id number] [facility] Platelets (Bld) [#/Vol] 408 10*3/uL Normal 150-450 [facility] Comment on above: Performed By: #### B MP, CBC ####[address] [place] [address] [facility] RBC (Bld) [#/Vol] 3.40 10*6/uL Low 3.90-5.60 [facility] Comment on above: Performed By: #### B MP, CBC ####[address] [place] [address] [facility] WBC (Bld) [#/Vol] 14.6 10*3/uL High 4.1-10.5 [facility] Comment on above: Performed By: #### B MP, CBC ####[address] [address] [facility] Glucose Poct Glucometerson 0 - Commemt1 Glu2: Cleaned Meter [facility] Comment on above: Result Comment: PERF ORMED BY:[address] [place] [place], [place] [phone] MEDICAL DIRECTORNATI LAUREN M.D. Performed By: #### G LULS ####Point of Care testing, Glucose [Mass/Vol] 122 mg/dL Normal [facility] Comment on above: Result Comment: [place] Glucose Reference Range is dependent on time and content of last meal. Glucose of more than 200 mg/dL in a nonstressed, ambulatory subject supports the diagnosis of Diabetes Mellitus. Performed By: #### G LULS ####Point of Care testing, Commemt1 Glu2: Cleaned Meter Normal [facility] Comment on above: Result Comment: PERF ORMED BY:[address] [place] [place], [place] [phone] MEDICAL DIRECTORNATI LAUREN M.D. Performed By: #### G LULS ####Point of Care testing, Glucose [Mass/Vol] 176 mg/dL Normal [facility] Comment on above: Result Comment: [place] Glucose Reference Range is dependent on time and content of last meal. Glucose of more than 200 mg/dL in a nonstressed, ambulatory subject supports the diagnosis of Diabetes Mellitus. Performed By: #### G LULS ####Point of Care testing, Commemt1 Glu2: Cleaned Meter Normal [facility] Comment on above: Result Comment: PERF ORMED BY:[address] [place] [id number] MEDICAL ALEKSANDAR LAUREN M.D. Performed By: #### G LULS ####Point of Care testing, Glucose [Mass/Vol] 149 mg/dL Normal [facility] Comment on above: Result Comment: [place] Glucose Reference Range is dependent on time and content of last meal. Glucose of more than 200 mg/dL in a nonstressed, ambulatory subject supports the diagnosis of Diabetes Mellitus. Performed By: #### G LULS ####Point of Care testing, Commemt1 Glu2: Cleaned Meter [facility] Comment on above: Result Comment: PERF ORMED BY:[address] [place]AFORT [place], [place] [id number] MEDICAL ALEKSANDAR LAUREN M.D. Performed By: #### G LULS ####Point of Care testing, Glucose [Mass/Vol] 159 mg/dL Normal [facility] Comment on above: Result Comment: [place] Glucose Reference Range is dependent on time and content of last meal. Glucose of more than 200 mg/dL in a nonstressed, ambulatory subject supports the diagnosis of Diabetes Mellitus. Performed By: #### G LULS ####Point of Care testing, Triglycerideson 11-09-2022 Triglyceride [Mass/Vol] 392 mg/dL High 0-149 [facility] Comment on above: Result Comment: TRIG ATP III CLASSIFICATION TRIG less than 150 mg/dL Normal TRIG 150-199 mg/dL Borderline high TRIG 200-500 mg/dL High TRIG greater than 500 mg/dL Very high Standard traceable to the Center for Disease Conrtrol and Prevention (CDC) test method.PERFORMED BY:[place] [address] [place] [place], [place] [phone] MEDICAL ALEKSANDAR LAUREN M.D. Performed By: #### T RIG ####[address] [address] [facility] XR chest 1V portableon 11-09 XR chest 1V portable Normal [facility] XR chest 1V portable Normal [facility] Arterial Blood Gason 023 ABG Base Excess 4.1 mmol/L High -3.0-3.0 [facility] Comment on above: Performed By: #### A BG ####Point of Care testing, ABG Frac Inspired O2 80 % [facility] Comment on above: Performed By: #### A BG ####Point of Care testing, ABG Oxygen Content 7.5 mmol/L Normal 6.6-9.7 [facility] Comment on above: Performed By: #### A BG ####Point of Care testing, ABG Oxygen Saturation 97.9 % Normal 95.0-100.0 [facility] Comment on above: Performed By: #### A BG ####Point of Care testing, ABG PCO2 55.6 mm[Hg] Off scale high 35.0-45.0 [facility] Comment on above: Performed By: #### A BG ####Point of Care testing, ABG PEEP 12 [facility] Comment on above: Performed By: #### A BG ####Point of Care testing, ABG PH 7.36 Normal 7.35-7.45 [facility] Comment on above: Performed By: #### A BG ####Point of Care testing, ABG PO2 111.2 mm[Hg] High 80.0-100.0 [facility] Comment on above: Performed By: #### A BG ####Point of Care testing, ABG TV 500 mL [facility] Comment on above: Performed By: #### A BG ####Point of Care testing, CO2 [Moles/Vol] 32.5 mmol/L High 23.0-27.0 [facility] Comment on above: Performed By: #### A BG ####Point of Care testing, HCO3 (Bld) [Moles/Vol] 30.8 mmol/L High 23.0-29.0 [facility] Comment on above: Performed By: #### A BG ####Point of Care testing, Respiratory Critical [facility] Comment on above: Result Comment: Crit ical Value called on: 11/08/2022 at 05:00PERFORMED BY:[facility] [place] [place], [place] [phone] MEDICAL DIRECTORNATI LAUREN M.D. Performed By: #### A BG ####Point of Care testing, Set Respiratory Rate 20 [facility] Comment on above: Performed By: #### A BG ####Point of Care testing, VBG Draw Site Left Radial [facility] Comment on above: Performed By: #### A BG ####Point of Care testing, Ventilator Mode AC [facility] Comment on above: Performed By: #### A BG ####Point of Care testing, Basic Metabolic Panelon 05 Anion gap [Moles/Vol] 10.0 mmol/L Normal 6.0-15.0 [facility] Comment on above: Performed By: #### B MP, SCAN CBC ####[facility] [id number] [place] [address] [place] Calcium [Mass/Vol] 8.2 mg/dL Low 8.6-10.3 [facility] Comment on above: Performed By: #### B MP, SCAN CBC ####[facility] Hsp4613 [place] [address] [place] Chloride [Moles/Vol] 99 mmol/L Normal 98-107 [facility] Comment on above: Performed By: #### B MP, SCAN CBC ####[facility] Wtp5693 [place] [address] [place] CO2 [Moles/Vol] 29.8 mmol/L Normal 21.0-31.0 [facility] Comment on above: Performed By: #### B MP, SCAN CBC ####[facility] [id number] [place] [address] [place] Creatinine [Mass/Vol] 0.43 mg/dL Low 0.70-1.30 [facility] Comment on above: Performed By: #### B MP, SCAN CBC ####[facility] Iyp7475 [place] [address] [place] Creatinine Clr Calc Pharmacy 251.76 Normal [facility] Comment on above: Result Comment: PERF ORMED BY:[place] [address] [place] [place], [place] [phone] MEDICAL ALEKSANDAR LAUREN M.D. Performed By: #### B MP, SCAN CBC ####[facility] Kip5991 [place] [address] [place] GFR/1.73 sq M.predicted MDRD (S/P/Bld) [Vol rate/Area] mL/min/{1.73_m2} Normal [facility] Comment on above: Performed By: #### B MP, SCAN CBC ####[facility] Nvs3875 [place] [address] [place] Glucose [Mass/Vol] 140 mg/dL High 70-100 [facility] Comment on above: Result Comment: [facility] Glucose Reference Range is dependent on time and content of last meal. Glucose of more than 200 mg/dL in a nonstressed, ambulatory subject supports the diagnosis of Diabetes Mellitus. ADA recommended reference range Performed By: #### B MP, SCAN CBC ####[facility] [id number] [place] [address] [facility] Potassium [Moles/Vol] 4.8 mmol/L Normal 3.5-5.1 [facility] Comment on above: Performed By: #### B MP, SCAN CBC ####[facility] [place] [address] [place] Sodium [Moles/Vol] 134 mmol/L Low 136-145 [facility] Comment on above: Performed By: #### B MP, SCAN CBC ####[facility] [id number] [place] [address] [facility] Urea nitrogen [Mass/Vol] 22 mg/dL Normal 7-25 [facility] Comment on above: Performed By: #### B MP, SCAN CBC ####[facility] Xoc4889 [place] [address] [facility] Glucose Poct Glucometerson 0 11-08-2022 Glucose [Mass/Vol] 135 mg/dL Normal [facility] Comment on above: Result Comment: [facility] Glucose Reference Range is dependent on time and content of last meal. Glucose of more than 200 mg/dL in a nonstressed, ambulatory subject supports the diagnosis of Diabetes Mellitus.PERFORMED BY:[facility] [place], [place] [phone] MEDICAL DIRECTORNATI LAUREN M.D. Performed By: #### G LULS ####Point of Care testing, HIV 1/O/2 Antigen/Antibodyon 11-08-2022 HIV Screen 4th Generation Non-Reactive Normal Non Reactive [facility] Comment on above: Order Comment: Dr. christopher gil putting in a chest tube Result Comment: HIV Negative HIV-1/HIV-2 antibodies and HIV-1 p24 antigen were NOT detected. There is no laboratory evidence of HIV infection. Performed at: [facility] [place] [address] [place], [place] [id number] Ground Host/Hostess: Crow Frost PhD, Phone: [phone] BY:[place] [address] [place], [place] [phone] MEDICAL DIRECTORNATI LAUREN M.D. Performed By: #### H IV SCREEN ####[facility] , HIV 1 and HIV-2 antibody ass ay with HIV-1 p24 antigen detectionOrdered By: Sanjay Holt on 11-08-2022 HIV 1+2 Ab+HIV1 p24 Ag IA Ql Non-Reactive Non Reactive [facility] Comment on above: HIV NegativeHIV-1/HI V-2 antibodies and HIV-1 p24 antigen were NOTdetected. There is no laboratory evidence of HIV infection.Performed at: [facility] [address] [id number] Director: Crow Frost PhD, Phone: [phone] Scan and CBCon 11-08-2022 Basophils (Bld) [#/Vol] 0.0 10*3/uL Normal 0.0-0.2 [facility] Comment on above: Performed By: #### B MP, SCAN CBC ####[place] [id number] [facility] Basophils/100 WBC (Bld) 0.2 % Normal . [facility] Comment on above: Performed By: #### B MP, SCAN CBC ####[place] [id number] [facility] Eosinophils (Bld) [#/Vol] 0.0 10*3/uL Normal 0.0-0.45 [facility] Comment on above: Performed By: #### B MP, SCAN CBC ####[address] Eosinophils/100 WBC (Bld) 0.0 % Normal . [facility] Comment on above: Performed By: #### B MP, SCAN CBC ####[address] Erythrocyte distribution width (RBC) [Ratio] 14.0 % Normal 12.0-14.8 [facility] Comment on above: Performed By: #### B MP, SCAN CBC ####[address] Hematocrit (Bld) [Volume fraction] 32.9 % Low 38.8-50.0 [facility] Comment on above: Performed By: #### B MP, SCAN CBC ####[place] [id number] [facility] Hemoglobin (Bld) [Mass/Vol] 10.7 g/dL Low 13.0-17.0 [facility] Comment on above: Performed By: #### B MP, SCAN CBC ####[place] [id number] [facility] Hypochromasia Moderate Normal [facility] Comment on above: Performed By: #### B MP, SCAN CBC ####[address] Lymphocytes (Bld) [#/Vol] 0.7 10*3/uL Low 1.00-4.8 [facility] Comment on above: Performed By: #### B MP, SCAN CBC ####[place] [address] [place] [address] [facility] Lymphocytes/100 WBC (Bld) 3.7 % Normal . [facility] Comment on above: Performed By: #### B MP, SCAN CBC ####[place] [address] [place] [address] [facility] MCH (RBC) [Entitic mass] 29.9 pg Normal 27.5-35.2 [facility] Comment on above: Performed By: #### B MP, SCAN CBC ####[place] [address] [place] [address] [facility] MCV (RBC) [Entitic vol] 92.0 fL Normal 83.5-101 [facility] Comment on above: Performed By: #### B MP, SCAN CBC ####[place] [id number] [facility] Mean Corpuscular HGB Conc 32.5 g/dL Normal 32.5-35.6 [facility] Comment on above: Performed By: #### B MP, SCAN CBC ####[address] [address] [place] Monocytes (Bld) [#/Vol] 0.8 10*3/uL Normal 0.0-0.8 [facility] Comment on above: Performed By: #### B MP, SCAN CBC ####[place] [id number] [facility] Monocytes/100 WBC (Bld) 4.3 % Normal . [facility] Comment on above: Performed By: #### B MP, SCAN CBC ####[address] [address] [place] Neutrophils (Bld) [#/Vol] 16.2 10*3/uL High 1.8-7.7 [facility] Comment on above: Performed By: #### B MP, SCAN CBC ####[place] [address] [place] [address] [facility] Neutrophils/100 WBC (Bld) 91.8 % Normal . [facility] Comment on above: Performed By: #### B MP, SCAN CBC ####[place] [address] [place] [address] [facility] NRBC% 0.1 /100{WBC} Normal 0-0.5 [facility] Comment on above: Performed By: #### B MP, SCAN CBC ####[address] [address] [facility] Platelet Estimate Normal Normal Normal [facility] Comment on above: Performed By: #### B MP, SCAN CBC ####[address] [address] [facility] Platelet mean volume (Bld) [Entitic vol] 7.4 fL Normal 6.6-10.1 [facility] Comment on above: Performed By: #### B MP, SCAN CBC ####[address] [address] [facility] Platelet Morphology Normal Normal Normal [facility] Comment on above: Result Comment: PERF ORMED BY:[address] [place], [place] [phone] MEDICAL ALEKSANDAR LAUREN M.D. Performed By: #### B MP, SCAN CBC ####[address] [address] [facility] Platelets (Bld) [#/Vol] 391 10*3/uL Normal 150-450 [facility] Comment on above: Performed By: #### B MP, SCAN CBC ####[address] [address] [facility] Polychromasia Moderate Normal [facility] Comment on above: Performed By: #### B MP, SCAN CBC ####[address] [address] [facility] RBC (Bld) [#/Vol] 3.58 10*6/uL Low 3.90-5.60 [facility] Comment on above: Performed By: #### B MP, SCAN CBC ####[address] [address] [facility] WBC (Bld) [#/Vol] 17.7 10*3/uL High 4.1-10.5 [facility] Comment on above: Performed By: #### B MP, SCAN CBC ####[facility] [address] [place] [address] [facility] XR chest 1V portableon 11-08 XR chest 1V portable Normal [facility] XR chest 1V portable Normal [facility] Arterial Blood Gason 023 ABG Base Excess 1.0 mmol/L Normal -3.0-3.0 [facility] Comment on above: Performed By: #### A BG ####Point of Care testing, ABG Frac Inspired O2 100 % [facility] Comment on above: Performed By: #### A BG ####Point of Care testing, ABG Oxygen Content 7.4 mmol/L Normal 6.6-9.7 [facility] Comment on above: Performed By: #### A BG ####Point of Care testing, ABG Oxygen Saturation 98.0 % Normal 95.0-100.0 [facility] Comment on above: Performed By: #### A BG ####Point of Care testing, ABG PCO2 60.2 mm[Hg] Off scale high 35.0-45.0 [facility] Comment on above: Performed By: #### A BG ####Point of Care testing, ABG PEEP 15 [facility] Comment on above: Performed By: #### A BG ####Point of Care testing, ABG PH 7.30 Low 7.35-7.45 [facility] Comment on above: Performed By: #### A BG ####Point of Care testing, ABG PO2 115.1 mm[Hg] High 80.0-100.0 [facility] Comment on above: Performed By: #### A BG ####Point of Care testing, ABG TV 500 mL [facility] Comment on above: Performed By: #### A BG ####Point of Care testing, CO2 [Moles/Vol] 30.5 mmol/L High 23.0-27.0 [facility] Comment on above: Performed By: #### A BG ####Point of Care testing, HCO3 (Bld) [Moles/Vol] 28.6 mmol/L Normal 23.0-29.0 [facility] Comment on above: Performed By: #### A BG ####Point of Care testing, Respiratory Critical [facility] Comment on above: Result Comment: Crit ical Value called on: 11/07/2022 at 09:15PERFORMED BY:[facility] [place], [place] [phone] MEDICAL DIRECTORNATI LAUREN M.D. Performed By: #### A BG ####Point of Care testing, Set Respiratory Rate 18 [facility] Comment on above: Performed By: #### A BG ####Point of Care testing, VBG Draw Site Right Radial [facility] Comment on above: Performed By: #### A BG ####Point of Care testing, Ventilator Mode AC [facility] Comment on above: Performed By: #### A BG ####Point of Care testing, ABG Base Excess 1.8 mmol/L Normal -3.0-3.0 [facility] Comment on above: Performed By: #### A BG ####Point of Care testing, ABG Frac Inspired O2 100 % [facility] Comment on above: Performed By: #### A BG ####Point of Care testing, ABG Oxygen Content 7.6 mmol/L Normal 6.6-9.7 [facility] Comment on above: Performed By: #### A BG ####Point of Care testing, ABG Oxygen Saturation 91.2 % Low 95.0-100.0 [facility] Comment on above: Performed By: #### A BG ####Point of Care testing, ABG PCO2 41.8 mm[Hg] Normal 35.0-45.0 [facility] Comment on above: Performed By: #### A BG ####Point of Care testing, ABG PEEP 10 [facility] Comment on above: Performed By: #### A BG ####Point of Care testing, ABG PH 7.42 Normal 7.35-7.45 [facility] Comment on above: Performed By: #### A BG ####Point of Care testing, ABG PO2 56.9 mm[Hg] Low 80.0-100.0 [facility] Comment on above: Performed By: #### A BG ####Point of Care testing, ABG Pressure Support 8.0 Normal [facility] Comment on above: Performed By: #### A BG ####Point of Care testing, CO2 [Moles/Vol] 27.7 mmol/L High 23.0-27.0 [facility] Comment on above: Performed By: #### A BG ####Point of Care testing, HCO3 (Bld) [Moles/Vol] 26.4 mmol/L Normal 23.0-29.0 [facility] Comment on above: Performed By: #### A BG ####Point of Care testing, Oxygen Device BiPAP [facility] Comment on above: Performed By: #### A BG ####Point of Care testing, Respiratory Critical [facility] Comment on above: Result Comment: Crit ical Value called on: 11/07/2022 at 05:41PERFORMED BY:[place] [id number] [place], [place] [phone] MEDICAL DIRECTORNATI LAUREN M.D. Performed By: #### A BG ####Point of Care testing, VBG Draw Site Right Radial [facility] Comment on above: Performed By: #### A BG ####Point of Care testing, Bacteria identification by s terile body fluid cultureOrdered By: Sanjay Holt on 11-07-2022 Bacteria identified Sterile body fluid culture Nom (Unsp spec) Not indicated. . [facility] Bacteria identification dete ction in isolate by cultureOrdered By: Sanjay Holt on 11-07-2022 Bacteria Identification Cx Ql (Isol) Not indicated. . [facility] Comprehensive Metabolic Pane tiago 11-07-2022 Albumin [Mass/Vol] 2.9 g/dL Low 3.5-5.7 [facility] Comment on above: Performed By: #### C MP, SCAN CBC ####[place] [address] [place] [address] [facility] Albumin/Globulin [Mass ratio] 0.9 {ratio} Normal [facility] Comment on above: Performed By: #### C MP, SCAN CBC ####[place] [address] [place] [address] [facility] ALP [Catalytic activity/Vol] 107 U/L High 34-104 [facility] Comment on above: Performed By: #### C MP, SCAN CBC ####[facility] [id number] [place] [address] [facility] ALT [Catalytic activity/Vol] 38 U/L Normal 7-52 [facility] Comment on above: Performed By: #### C MP, SCAN CBC ####[address] [address] [facility] Anion gap [Moles/Vol] 11.7 mmol/L Normal 6.0-15.0 [facility] Comment on above: Performed By: #### C MP, SCAN CBC ####[address] [address] [facility] AST [Catalytic activity/Vol] 32 U/L Normal 13-39 [facility] Comment on above: Performed By: #### C MP, SCAN CBC ####[address] [address] [facility] Bilirubin [Mass/Vol] 0.5 mg/dL Normal 0.3-1.0 [facility] Comment on above: Performed By: #### C MP, SCAN CBC ####[facility] [id number] [place] [address] [facility] Calcium [Mass/Vol] 8.4 mg/dL Low 8.6-10.3 [facility] Comment on above: Performed By: #### C MP, SCAN CBC ####[address] [address] [facility] Chloride [Moles/Vol] 99 mmol/L Normal 98-107 [facility] Comment on above: Performed By: #### C MP, SCAN CBC ####[facility] [id number] [place] [address] [facility] CO2 [Moles/Vol] 27.6 mmol/L Normal 21.0-31.0 [facility] Comment on above: Performed By: #### C MP, SCAN CBC ####[facility] Veo7085 [place] [address] [facility] Creatinine [Mass/Vol] 0.55 mg/dL Low 0.70-1.30 [facility] Comment on above: Performed By: #### C MP, SCAN CBC ####[facility] Xki4518 [place] [address] [place] Creatinine Clr Calc Pharmacy 197.78 [facility] Comment on above: Result Comment: PERF ORMED BY:[address] [place], [place] [phone] MEDICAL DIRECTORNATI LAUREN M.D. Performed By: #### C MP, SCAN CBC ####[facility] Bls8249 [place] [address] [facility] GFR/1.73 sq M.predicted MDRD (S/P/Bld) [Vol rate/Area] mL/min/{1.73_m2} [facility] Comment on above: Performed By: #### C MP, SCAN CBC ####[facility] Myy8973 [place] [address] [facility] Globulin (S) [Mass/Vol] 3.4 g/dL [facility] Comment on above: Performed By: #### C MP, SCAN CBC ####[facility] [id number] [place] [address] [facility] Glucose [Mass/Vol] 128 mg/dL High 70-100 [facility] Comment on above: Result Comment: [place] [facility] Glucose Reference Range is dependent on time and content of last meal. Glucose of more than 200 mg/dL in a nonstressed, ambulatory subject supports the diagnosis of Diabetes Mellitus. ADA recommended reference range Performed By: #### C MP, SCAN CBC ####[facility] Ria[address] [place] [address] [facility] Potassium [Moles/Vol] 4.3 mmol/L Normal 3.5-5.1 [facility] Comment on above: Performed By: #### C MP, SCAN CBC ####[facility] Lgt2502 [place] [address] [facility] Protein [Mass/Vol] 6.3 g/dL Low 6.4-8.9 [facility] Comment on above: Performed By: #### C MP, SCAN CBC ####[facility] Lef[address] [place] [address] [facility] Sodium [Moles/Vol] 134 mmol/L Low 136-145 [facility] Comment on above: Performed By: #### C MP, SCAN CBC ####[facility] [id number] [place] [address] [facility] Urea nitrogen [Mass/Vol] 20 mg/dL Normal 7-25 [facility] Comment on above: Performed By: #### C MP, SCAN CBC ####[facility] [id number] [place] [address] [place] ECG 12 lead ECGon 11-07-2022 ECG 12 lead ECG Normal [facility] ECG 12 lead ECG Normal [facility] ECG 12 lead ECG Normal [facility] Legionella Pneu 1-6 Antibodi eson 11-07-2022 Legionella Pneu 1-6 Antibodies <0.91 Normal 0.00-0.90 [facility] Comment on above: Order Comment: SPECI MEN HEMOLYZED NEEDS REDRAWN PLEASE Result Comment: Nega tive <0.91 Equivocal 0.91 - 1.09 Positive >1.09 This assay detects IgG/IgM/IgA antibodies to L. pneumophila Groups 1-6 by the EIA method. Performed at: [address] [id number] Ground Host/Hostess: Marla Bravo MD, Phone: [phone] BY:[address] [place], [place] [phone] MEDICAL DIRECTORNATI LAUREN M.D. Performed By: #### L EG PNE AB ####[facility] , Legionella Pneumophilia Ag, Uron 11-07-2022 Legionella Pneumophilia Ag, Ur Negative Normal Negative [facility] Comment on above: Order Comment: SOURC E OF SPECIMEN: jones Result Comment: Pres umptive negative for L. pneumophila serogroup 1 antigen in urine, suggesting no recent or current infection. Legionnaires' disease cannot be ruled out since other serogroups and species may also cause disease. Performed at: [address] [id number] Ground Host/Hostess: Marla Bravo MD, Phone: [phone] BY:[place] [address] [place], [place] [phone] MEDICAL DIRECTORNATI LAUREN M.D. Performed By: #### U RLEGIONELLA ####[facility] , Legionella pneumophila type 1-6 antibody assayOrdered By: Sanjay Holt on 11-07-2022 L. pneumophila 1+2+3+4+5+6 Ab (S) [Titer] <0.91 OD ratio 0.00-0.90 [facility] Comment on above: Negative <0.91 Equiv ocal 0.91 - 1.09 Positive >1.09 This assay detects IgG/IgM/IgA antibodies to L. pneumophila Groups 1-6 by the EIA method.Performed at: [address] [id number] Director: Marla Bravo MD, Phone: [phone] Macrocytes LM Ql (Bld)Ordere d By: Netta Wiseman on 11-07-2022 Macrocytes Ql (Bld) Slight [facility] No Panel InformationOrdered By: Sanjay Holt on 11-07-2022 Strep pneumoniae Special Info See comment . [facility] Comment on above: [employer] standards require aculture to be performed on CSF specimens submitted forbacterial antigen testing. (CAP [id number]) Urine specimenswill not be cultured.Performed at: [address] [id number] Director: Marla Bravo MD, Phone: [phone] No Panel InformationOrdered By: Netta Wiseman on 11-07-2022 Blood Gas Pressure Support 8.0 cmH2O [facility] Oxygen Delivery Device Bipap [facility] Scan and CBCon 11-07-2022 Anisocytosis Ql (Bld) Slight Normal [facility] Comment on above: Performed By: #### C MP, SCAN CBC ####[address] Basophils (Bld) [#/Vol] 0.1 10*3/uL Normal 0.0-0.2 [facility] Comment on above: Performed By: #### C MP, SCAN CBC ####[address] Basophils/100 WBC (Bld) 0.3 % Normal . [facility] Comment on above: Performed By: #### C MP, SCAN CBC ####[address] Eosinophils (Bld) [#/Vol] 0.0 10*3/uL Normal 0.0-0.45 [facility] Comment on above: Performed By: #### C MP, SCAN CBC ####[address] Eosinophils/100 WBC (Bld) 0.0 % Normal . [facility] Comment on above: Performed By: #### C MP, SCAN CBC ####[address] Erythrocyte distribution width (RBC) [Ratio] 14.0 % Normal 12.0-14.8 [facility] Comment on above: Performed By: #### C MP, SCAN CBC ####[address] Hematocrit (Bld) [Volume fraction] 35.1 % Low 38.8-50.0 [facility] Comment on above: Performed By: #### C MP, SCAN CBC ####[address] Hemoglobin (Bld) [Mass/Vol] 11.5 g/dL Low 13.0-17.0 [facility] Comment on above: Performed By: #### C MP, SCAN CBC ####[address] Hypochromasia Slight Normal [facility] Comment on above: Performed By: #### C MP, SCAN CBC ####[address] Lymphocytes (Bld) [#/Vol] 1.1 10*3/uL Normal 1.00-4.8 [facility] Comment on above: Performed By: #### C MP, SCAN CBC ####[address] Lymphocytes/100 WBC (Bld) 3.3 % Normal . [facility] Comment on above: Performed By: #### C MP, SCAN CBC ####[address] Macrocytosis Slight Normal [facility] Comment on above: Performed By: #### C MP, SCAN CBC ####[address] MCH (RBC) [Entitic mass] 29.8 pg Normal 27.5-35.2 [facility] Comment on above: Performed By: #### C MP, SCAN CBC ####[address] MCV (RBC) [Entitic vol] 91.0 fL Normal 83.5-101 [facility] Comment on above: Performed By: #### C MP, SCAN CBC ####[address] Mean Corpuscular HGB Conc 32.8 g/dL Normal 32.5-35.6 [facility] Comment on above: Performed By: #### C MP, SCAN CBC ####[address] Monocytes (Bld) [#/Vol] 0.8 10*3/uL Normal 0.0-0.8 [facility] Comment on above: Performed By: #### C MP, SCAN CBC ####[address] [address] [facility] Monocytes/100 WBC (Bld) 2.4 % Normal . [facility] Comment on above: Performed By: #### C MP, SCAN CBC ####[address] [address] [facility] Neutrophils (Bld) [#/Vol] 30.7 10*3/uL High 1.8-7.7 [facility] Comment on above: Performed By: #### C MP, SCAN CBC ####[id number] [facility] Neutrophils/100 WBC (Bld) 94.0 % Normal . [facility] Comment on above: Performed By: #### C MP, SCAN CBC ####[address] [address] [facility] NRBC% 0.1 /100{WBC} Normal 0-0.5 [facility] Comment on above: Performed By: #### C MP, SCAN CBC ####[address] [address] [facility] Platelet Estimate Normal Normal Normal [facility] Comment on above: Performed By: #### C MP, SCAN CBC ####[address] [address] [facility] Platelet mean volume (Bld) [Entitic vol] 7.9 fL Normal 6.6-10.1 [facility] Comment on above: Performed By: #### C MP, SCAN CBC ####[address] [address] [facility] Platelet Morphology Normal Normal Normal [facility] Comment on above: Result Comment: PERF ORMED BY:[address] [place], [place] [phone] MEDICAL ALEKSANDAR LAUREN M.D. Performed By: #### C MP, SCAN CBC ####[address] [place] [address] [place] Platelets (Bld) [#/Vol] 409 10*3/uL Normal 150-450 [facility] Comment on above: Performed By: #### C MP, SCAN CBC ####[address] Polychromasia Slight Normal [facility] Comment on above: Performed By: #### C MP, SCAN CBC ####[address] RBC (Bld) [#/Vol] 3.85 10*6/uL Low 3.90-5.60 [facility] Comment on above: Performed By: #### C MP, SCAN CBC ####[address] Stomatocytes Slight Normal [facility] Comment on above: Performed By: #### C MP, SCAN CBC ####[address] WBC (Bld) [#/Vol] 32.6 10*3/uL High 4.1-10.5 [facility] Comment on above: Performed By: #### C MP, SCAN CBC ####[address] Specimen source identifiedOr dered By: Sanjay Holt on 11-07-2022 Specimen source Nom (Unsp spec) Urine . [facility] Strep Pneumoniae Ag, Uron Body Fluid Culture Not indicated. Normal . [facility] Comment on above: Order Comment: SOURC E OF SPECIMEN: [email or web address] Performed By: #### U R STP AG ####[facility] , Organism ID Not indicated. Normal . [facility] Comment on above: Order Comment: SOURC E OF SPECIMEN: [email or web address] Performed By: #### U R STP AG ####[facility] , Please Note: Normal . [facility] Comment on above: Order Comment: SOURC E OF SPECIMEN: [email or web address] Result Comment: Thomas ege of [place] [employer] standards require a culture to be performed on CSF specimens submitted for bacterial antigen testing. (CAP [id number]) Urine specimens will not be cultured. Performed at: [address] [id number] Ground Host/Hostess: Marla Bravo MD, Phone: [phone] BY:[facility] [place], [place] [phone] MEDICAL DIRECTORNATI LAUREN M.D. Performed By: #### U R STP AG ####[facility] , Specimen source Nom (Unsp spec) Urine Normal . [facility] Comment on above: Order Comment: SOURC E OF SPECIMEN: [email or web address] Performed By: #### U R STP AG ####[facility] , Streptococcus Pneumoniae Ag Negative Normal Negative [facility] Comment on above: Order Comment: SOURC E OF SPECIMEN: [email or web address] Performed By: #### U R STP AG ####[facility] , Streptococcus pneumoniae ant igen detectionOrdered By: Sanjay Holt on 11-07-2022 S. pneumoniae Ag Ql (Unsp spec) Negative Negative [facility] Triglycerideson 11-07-2022 Triglyceride [Mass/Vol] 222 mg/dL High 0-149 [facility] Comment on above: Order Comment: Comme nt please run off blood drawn this morning Result Comment: TRIG ATP III CLASSIFICATION TRIG less than 150 mg/dL Normal TRIG 150-199 mg/dL Borderline high TRIG 200-500 mg/dL High TRIG greater than 500 mg/dL Very high Standard traceable to the Center for Disease Conrtrol and Prevention (CDC) test method.PERFORMED BY:[address] [place], [place] [phone] MEDICAL DIRECTORNATI LAUREN M.D. Performed By: #### T RIG ####[facility] [id number] [place] [address] [facility] Urine Legionella antigen det ectionOrdered By: Sanjay Holt on 11-07-2022 Legionella sp Ag Ql (U) Negative Negative [facility] Comment on above: Presumptive negative for L. pneumophila serogroup 1 antigenin urine, suggesting no recent or current infection.Legionnaires' disease cannot be ruled out since otherserogroups and species may also cause disease.Performed at: [facility] [address] [id number] Director: Marla Bravo MD, Phone: [phone] XR chest 1V portableon 11-07 XR chest 1V portable [facility] XR chest 1V portable [facility] CT chest w conon 11-06-2022 CT chest w con [facility] Comprehensive Metabolic Pane tiago 11-06-2022 Albumin [Mass/Vol] 2.8 g/dL Low 3.5-5.7 [facility] Comment on above: Order Comment: draw at 0500 Performed By: #### C MP, SCAN CBC ####[facility] [id number] [place] [address] [facility] Albumin/Globulin [Mass ratio] 0.8 {ratio} [facility] Comment on above: Order Comment: draw at 0500 Performed By: #### C MP, SCAN CBC ####[facility] Gxs8699 [place] [address] [facility] ALP [Catalytic activity/Vol] 96 U/L Normal 34-104 [facility] Comment on above: Order Comment: draw at 0500 Performed By: #### C MP, SCAN CBC ####[facility] [id number] [place] [address] [facility] ALT [Catalytic activity/Vol] 17 U/L Normal 7-52 [facility] Comment on above: Order Comment: draw at 0500 Performed By: #### C MP, SCAN CBC ####[facility] [id number] [place] [address] [place] Anion gap [Moles/Vol] 11.9 mmol/L Normal 6.0-15.0 [facility] Comment on above: Order Comment: draw at 0500 Performed By: #### C MP, SCAN CBC ####[facility] Tog[address] [place] [address] [place] AST [Catalytic activity/Vol] 11 U/L Low 13-39 [facility] Comment on above: Order Comment: draw at 0500 Performed By: #### C MP, SCAN CBC ####[facility] Wpy5093 [place] [address] [facility] Bilirubin [Mass/Vol] 0.5 mg/dL Normal 0.3-1.0 [facility] Comment on above: Order Comment: draw at 0500 Performed By: #### C MP, SCAN CBC ####[facility] [address] [place] [address] [facility] Calcium [Mass/Vol] 8.4 mg/dL Low 8.6-10.3 [facility] Comment on above: Order Comment: draw at 0500 Performed By: #### C MP, SCAN CBC ####[facility] Bry[address] [place] [address] [facility] Chloride [Moles/Vol] 101 mmol/L Normal 98-107 [facility] Comment on above: Order Comment: draw at 0500 Performed By: #### C MP, SCAN CBC ####[address] [address] [facility] CO2 [Moles/Vol] 26.8 mmol/L Normal 21.0-31.0 [facility] Comment on above: Order Comment: draw at 0500 Performed By: #### C MP, SCAN CBC ####[address] [place] [address] [facility] Creatinine [Mass/Vol] 0.51 mg/dL Low 0.70-1.30 [facility] Comment on above: Order Comment: draw at 0500 Performed By: #### C MP, SCAN CBC ####[facility] [address] [place] [address] [place] Creatinine Clr Calc Pharmacy 213.29 Normal [facility] Comment on above: Order Comment: draw at 0500 Result Comment: PERF ORMED BY:[address] [address] [place], [place] [phone] MEDICAL ALEKSANDAR LAUREN M.D. Performed By: #### C MP, SCAN CBC ####[facility] [id number] [place] [address] [facility] GFR/1.73 sq M.predicted MDRD (S/P/Bld) [Vol rate/Area] mL/min/{1.73_m2} [facility] Comment on above: Order Comment: draw at 0500 Performed By: #### C MP, SCAN CBC ####[facility] Fld[address] [place] [address] [facility] Globulin (S) [Mass/Vol] 3.4 g/dL [facility] Comment on above: Order Comment: draw at 0500 Performed By: #### C MP, SCAN CBC ####[facility] Gaj[address] [place] [address] [place] Glucose [Mass/Vol] 127 mg/dL High 70-100 [facility] Comment on above: Order Comment: draw at 0500 Result Comment: [place] Glucose Reference Range is dependent on time and content of last meal. Glucose of more than 200 mg/dL in a nonstressed, ambulatory subject supports the diagnosis of Diabetes Mellitus. ADA recommended reference range Performed By: #### C MP, SCAN CBC ####[facility] Cbg4631 [place] [address] [place] Potassium [Moles/Vol] 3.7 mmol/L Normal 3.5-5.1 [facility] Comment on above: Order Comment: draw at 0500 Performed By: #### C MP, SCAN CBC ####[facility] Oog[address] [place] [address] [place] Protein [Mass/Vol] 6.2 g/dL Low 6.4-8.9 [facility] Comment on above: Order Comment: draw at 0500 Performed By: #### C MP, SCAN CBC ####[facility] [place] [address] [place] Sodium [Moles/Vol] 136 mmol/L Normal 136-145 [facility] Comment on above: Order Comment: draw at 0500 Performed By: #### C MP, SCAN CBC ####[facility] [place] [address] [place] Urea nitrogen [Mass/Vol] 15 mg/dL Normal 7-25 [facility] Comment on above: Order Comment: draw at 0500 Performed By: #### C MP, SCAN CBC ####[address] Helmet cell detectionOrdered By: Netta Wiseman on 11-06-2022 Helmet cells LM Ql (Bld) Slight [facility] Scan and CBCon 11-06-2022 Basophils (Bld) [#/Vol] 0.1 10*3/uL Normal 0.0-0.2 [facility] Comment on above: Order Comment: draw at 0500 Performed By: #### C MP, SCAN CBC ####[address] Basophils/100 WBC (Bld) 0.2 % Normal . [facility] Comment on above: Order Comment: draw at 0500 Performed By: #### C MP, SCAN CBC ####[address] Eosinophils (Bld) [#/Vol] 0.0 10*3/uL Normal 0.0-0.45 [facility] Comment on above: Order Comment: draw at 0500 Performed By: #### C MP, SCAN CBC ####[address] Eosinophils/100 WBC (Bld) 0.0 % Normal . [facility] Comment on above: Order Comment: draw at 0500 Performed By: #### C MP, SCAN CBC ####[address] Erythrocyte distribution width (RBC) [Ratio] 13.9 % Normal 12.0-14.8 [facility] Comment on above: Order Comment: draw at 0500 Performed By: #### C MP, SCAN CBC ####[place] [id number] [facility] Helmet Cells Slight Normal [facility] Comment on above: Order Comment: draw at 0500 Performed By: #### C MP, SCAN CBC ####[address] [place] [id number] [place] Hematocrit (Bld) [Volume fraction] 34.6 % Low 38.8-50.0 [facility] Comment on above: Order Comment: draw at 0500 Performed By: #### C MP, SCAN CBC ####[place] [place] [id number] [facility] Hemoglobin (Bld) [Mass/Vol] 11.2 g/dL Low 13.0-17.0 [facility] Comment on above: Order Comment: draw at 0500 Performed By: #### C MP, SCAN CBC ####[place] [place] [id number] [facility] Hypochromasia Slight Normal [facility] Comment on above: Order Comment: draw at 0500 Performed By: #### C MP, SCAN CBC ####[place] [place] [id number] [facility] Lymphocytes (Bld) [#/Vol] 1.1 10*3/uL Normal 1.00-4.8 [facility] Comment on above: Order Comment: draw at 0500 Performed By: #### C MP, SCAN CBC ####[place] [id number] [facility] Lymphocytes/100 WBC (Bld) 3.5 % Normal . [facility] Comment on above: Order Comment: draw at 0500 Performed By: #### C MP, SCAN CBC ####[place] [id number] [facility] MCH (RBC) [Entitic mass] 29.7 pg Normal 27.5-35.2 [facility] Comment on above: Order Comment: draw at 0500 Performed By: #### C MP, SCAN CBC ####[place] [phone] [facility] MCV (RBC) [Entitic vol] 91.8 fL Normal 83.5-101 [facility] Comment on above: Order Comment: draw at 0500 Performed By: #### C MP, SCAN CBC ####[place] [phone] [facility] Mean Corpuscular HGB Conc 32.4 g/dL Low 32.5-35.6 [facility] Comment on above: Order Comment: draw at 0500 Performed By: #### C MP, SCAN CBC ####[address] Monocytes (Bld) [#/Vol] 1.0 10*3/uL High 0.0-0.8 [facility] Comment on above: Order Comment: draw at 0500 Performed By: #### C MP, SCAN CBC ####[place] [phone] [facility] Monocytes/100 WBC (Bld) 3.3 % Normal . [facility] Comment on above: Order Comment: draw at 0500 Performed By: #### C MP, SCAN CBC ####[address] Neutrophils (Bld) [#/Vol] 28.0 10*3/uL High 1.8-7.7 [facility] Comment on above: Order Comment: draw at 0500 Performed By: #### C MP, SCAN CBC ####[address] Neutrophils/100 WBC (Bld) 93.0 % Normal . [facility] Comment on above: Order Comment: draw at 0500 Performed By: #### C MP, SCAN CBC ####[address] NRBC% 0.0 /100{WBC} Normal 0-0.5 [facility] Comment on above: Order Comment: draw at 0500 Performed By: #### C MP, SCAN CBC ####[place] [phone] [facility] Platelet Estimate Normal Normal Normal [facility] Comment on above: Order Comment: draw at 0500 Performed By: #### C MP, SCAN CBC ####[place] [phone] [facility] Platelet mean volume (Bld) [Entitic vol] 8.0 fL Normal 6.6-10.1 [facility] Comment on above: Order Comment: draw at 0500 Performed By: #### C MP, SCAN CBC ####[address] [address] [facility] Platelet Morphology Normal Normal Normal [facility] Comment on above: Order Comment: draw at 0500 Result Comment: PERF ORMED BY:[address] [place], [place] [phone] MEDICAL DIRECTORNATI LAUREN M.D. Performed By: #### C MP, SCAN CBC ####[address] [address] [facility] Platelets (Bld) [#/Vol] 346 10*3/uL Normal 150-450 [facility] Comment on above: Order Comment: draw at 0500 Performed By: #### C MP, SCAN CBC ####[place] [phone] [facility] RBC (Bld) [#/Vol] 3.77 10*6/uL Low 3.90-5.60 [facility] Comment on above: Order Comment: draw at 0500 Performed By: #### C MP, SCAN CBC ####[address] [address] [facility] WBC (Bld) [#/Vol] 30.2 10*3/uL High 4.1-10.5 [facility] Comment on above: Order Comment: draw at 0500 Performed By: #### C MP, SCAN CBC ####[place] [place] [phone] [facility] Aerobic Cultureon 11-05-2022 Aerobic Culture Normal [facility] Comment on above: Performed By: #### G S, AERC ####[place] [phone] [facility] Arterial Blood Gason 023 ABG Base Excess 0.9 mmol/L Normal -3.0-3.0 [facility] Comment on above: Performed By: #### A BG ####Point of Care testing, ABG Frac Inspired O2 55 % Normal [facility] Comment on above: Performed By: #### A BG ####Point of Care testing, ABG Liter Flow 14 Normal [facility] Comment on above: Performed By: #### A BG ####Point of Care testing, ABG Oxygen Content 6.6 mmol/L Normal 6.6-9.7 [facility] Comment on above: Performed By: #### A BG ####Point of Care testing, ABG Oxygen Saturation 89.0 % Low 95.0-100.0 [facility] Comment on above: Performed By: #### A BG ####Point of Care testing, ABG PCO2, Temp Corrected 40.4 mm[Hg] Normal 35.0-45.0 [facility] Comment on above: Performed By: #### A BG ####Point of Care testing, ABG PH, Temp Corrected 7.41 Normal 7.35-7.45 [facility] Comment on above: Performed By: #### A BG ####Point of Care testing, ABG PO2, Temperature Corrected 61.0 mm[Hg] Low 80.0-100.0 [facility] Comment on above: Performed By: #### A BG ####Point of Care testing, CO2 [Moles/Vol] 25.8 mmol/L Normal 23.0-27.0 [facility] Comment on above: Performed By: #### A BG ####Point of Care testing, HCO3 (Bld) [Moles/Vol] 24.7 mmol/L Normal 23.0-29.0 [facility] Comment on above: Performed By: #### A BG ####Point of Care testing, Oxygen Device Venti Mask [facility] Comment on above: Performed By: #### A BG ####Point of Care testing, Respiratory Critical [facility] Comment on above: Result Comment: Crit ical Value called on: 11/05/2022 at 09:39PERFORMED BY:[facility] [place], [place] [id number] MEDICAL DIRECTORNATI LAUREN M.D. Performed By: #### A BG ####Point of Care testing, VBG Draw Site Right Radial Normal [facility] Comment on above: Performed By: #### A BG ####Point of Care testing, B-Type Natriuretic Peptideon 11-05-2022 Natriuretic peptide B (Bld) [Mass/Vol] 130.0 pg/mL High 5-100 [facility] Comment on above: Result Comment: PERF ORMED BY:[address] [place], [place] [phone] MEDICAL DIRECTORNATI LAUREN M.D. Performed By: #### B NANOTECHNOLOGY ENGINEERING TECHNICIAN, LACTIC, HS TROP, HEPATIC ####[address]#### PROCALCITONIN ####[facility] , Basic Metabolic Panelon 10-09 Anion gap [Moles/Vol] 10.1 mmol/L Normal 6.0-15.0 [facility] Comment on above: Performed By: #### E SR, BMP, MG, CBC ####[address] [address] [facility] Calcium [Mass/Vol] 7.8 mg/dL Low 8.6-10.3 [facility] Comment on above: Performed By: #### E SR, BMP, MG, CBC ####[address] [address] [facility] Chloride [Moles/Vol] 101 mmol/L Normal 98-107 [facility] Comment on above: Performed By: #### E SR, BMP, MG, CBC ####[place] [id number] [facility] CO2 [Moles/Vol] 27.1 mmol/L Normal 21.0-31.0 [facility] Comment on above: Performed By: #### E SR, BMP, MG, CBC ####[address] [place] [address] [facility] Creatinine [Mass/Vol] 0.59 mg/dL Low 0.70-1.30 [facility] Comment on above: Performed By: #### E SR, BMP, MG, CBC ####[facility] Kqn[address] [place] [address] [facility] Creatinine Clr Calc Pharmacy 169.08 [facility] Comment on above: Performed By: #### E SR, BMP, MG, CBC ####[facility] [place] [address] [facility] GFR/1.73 sq M.predicted MDRD (S/P/Bld) [Vol rate/Area] mL/min/{1.73_m2} [facility] Comment on above: Performed By: #### E SR, BMP, MG, CBC ####[address] [place] [id number] [facility] Glucose [Mass/Vol] 135 mg/dL High 70-100 [facility] Comment on above: Result Comment: [facility] Glucose Reference Range is dependent on time and content of last meal. Glucose of more than 200 mg/dL in a nonstressed, ambulatory subject supports the diagnosis of Diabetes Mellitus. ADA recommended reference range Performed By: #### E SR, BMP, MG, CBC ####[address] [place] [address] [facility] Potassium [Moles/Vol] 3.2 mmol/L Low 3.5-5.1 [facility] Comment on above: Performed By: #### E SR, BMP, MG, CBC ####[address] [place] [address] [facility] Sodium [Moles/Vol] 135 mmol/L Low 136-145 [facility] Comment on above: Performed By: #### E SR, BMP, MG, CBC ####[facility] [place] [address] [facility] Urea nitrogen [Mass/Vol] 13 mg/dL Normal 7-25 [facility] Comment on above: Performed By: #### E SR, BMP, MG, CBC ####[facility] Qnl[address] [place] [address] [facility] BioFire Not Detectedon 11-05 BioFire Not Detected Not detected Normal Not Detecte [facility] Comment on above: Result Comment: This is a duplicate RP2.1 COVID (PCR) result to be used for statistical tracking purpose only.PERFORMED BY:[facility] [place], [place] [phone] MEDICAL DIRECTORNATI LAUREN M.D. Performed By: #### B IOFIRECOVNOTDE, RESP PANEL UPP. ####[facility] [address] [place] [address] [place] Blood Cultureon 11-05-2022 Bacteria identified Cx Nom (Bld) NO GROWTH 5 DAYS PERFORMED BY: [facility] [address] [place] [address] PATHOLOGIST MORTAR CARRIER NATI LAUREN M.D. Normal [facility] Comment on above: Performed By: #### C UBLD ####[address] [place] [address] [facility] CARDIAC RON 3-6on 3 CK [Catalytic activity/Vol] 45 U/L Normal 39-308 [facility] Comment on above: Performed By: #### C MREP #### [facility] [address] [address] [address] Epi Goldstein CK.MB [Mass/Vol] 0.75 ng/mL Normal <=3.60 [facility] Comment on above: Performed By: #### C MREP #### [facility] [address] [address] [address] Epi Goldstein HSTROP 7.0 pg/mL Normal 4.0-76.1 [facility] Comment on above: Result Comment: CUT- OFF POINTS HAVE BEEN ESTABLISHED BASED ON THE FOURTH UNIVERSAL DEFINITIONS OF MYOCARDIAL INFARCTION. THE UPPER REFERENCE LIMIT (URL) OF TROPONIN, DEFINED THE 99TH PERCENTILE OF cTnI DISTRIBUTION IN A REFERENCE POPULATION, HAS BEEN CONFIRMED THE DECISION THRESHOLD FOR PR DIAGNOSIS. Performed By: #### C MREP #### [facility] [address] [address] [address] Epi Goldstein COVID-19 Detected/Not Detect edOrdered By: Netta Wiseman on 11-05-2022 SARS-CoV-2 (COVID-19) RNA ROWENA+non-probe Ql (Nph) Not detected Not Detecte [facility] Comment on above: This is a duplicate RP2.1 COVID (PCR) result to be used for statistical tracking purpose only. Complete Blood Count Auto Di ffon 11-05-2022 Basophils (Bld) [#/Vol] 0.1 10*3/uL Normal 0.0-0.2 [facility] Comment on above: Performed By: #### E SR, BMP, MG, CBC ####[address] Basophils/100 WBC (Bld) 0.5 % Normal . [facility] Comment on above: Performed By: #### E SR, BMP, MG, CBC ####[address] Eosinophils (Bld) [#/Vol] 0.1 10*3/uL Normal 0.0-0.45 [facility] Comment on above: Performed By: #### E SR, BMP, MG, CBC ####[address] Eosinophils/100 WBC (Bld) 0.5 % Normal . [facility] Comment on above: Performed By: #### E SR, BMP, MG, CBC ####[address] Erythrocyte distribution width (RBC) [Ratio] 13.2 % Normal 12.0-14.8 [facility] Comment on above: Performed By: #### E SR, BMP, MG, CBC ####[address] Hematocrit (Bld) [Volume fraction] 30.8 % Low 38.8-50.0 [facility] Comment on above: Performed By: #### E SR, BMP, MG, CBC ####[address] Hemoglobin (Bld) [Mass/Vol] 10.2 g/dL Low 13.0-17.0 [facility] Comment on above: Performed By: #### E SR, BMP, MG, CBC ####[address] Lymphocytes (Bld) [#/Vol] 1.5 10*3/uL Normal 1.00-4.8 [facility] Comment on above: Performed By: #### E SR, BMP, MG, CBC ####[address] Lymphocytes/100 WBC (Bld) 8.7 % Normal . [facility] Comment on above: Performed By: #### E SR, BMP, MG, CBC ####[address] MCH (RBC) [Entitic mass] 30.0 pg Normal 27.5-35.2 [facility] Comment on above: Performed By: #### E SR, BMP, MG, CBC ####[address] MCV (RBC) [Entitic vol] 90.7 fL Normal 83.5-101 [facility] Comment on above: Performed By: #### E SR, BMP, MG, CBC ####[address] Mean Corpuscular HGB Conc 33.1 g/dL Normal 32.5-35.6 [facility] Comment on above: Performed By: #### E SR, BMP, MG, CBC ####[address] Monocytes (Bld) [#/Vol] 1.4 10*3/uL High 0.0-0.8 [facility] Comment on above: Performed By: #### E SR, BMP, MG, CBC ####[address] Monocytes/100 WBC (Bld) 8.3 % Normal . [facility] Comment on above: Performed By: #### E SR, BMP, MG, CBC ####[address] Neutrophils (Bld) [#/Vol] 14.3 10*3/uL High 1.8-7.7 [facility] Comment on above: Performed By: #### E SR, BMP, MG, CBC ####[address] Neutrophils/100 WBC (Bld) 82.0 % Normal . [facility] Comment on above: Performed By: #### E SR, BMP, MG, CBC ####[address] NRBC% 0.1 /100{WBC} Normal 0-0.5 [facility] Comment on above: Performed By: #### E SR, BMP, MG, CBC ####[address] Platelet mean volume (Bld) [Entitic vol] 7.8 fL Normal 6.6-10.1 [facility] Comment on above: Performed By: #### E SR, BMP, MG, CBC ####[address] Platelets (Bld) [#/Vol] 319 10*3/uL Normal 150-450 [facility] Comment on above: Performed By: #### E SR, BMP, MG, CBC ####[address] RBC (Bld) [#/Vol] 3.39 10*6/uL Low 3.90-5.60 [facility] Comment on above: Performed By: #### E SR, BMP, MG, CBC ####[address] WBC (Bld) [#/Vol] 17.4 10*3/uL High 4.1-10.5 [facility] Comment on above: Performed By: #### E SR, BMP, MG, CBC ####[address] ECG 12 lead ECGon 11-05-2022 ECG 12 lead ECG Normal [facility] Erythrocyte Sedimentation Ra tristin 11-05-2022 ESR (Bld) [Velocity] 82 mm/h High 0-19 [facility] Comment on above: Result Comment: PERF ORMED BY:[place] [address] [place], [place] [phone] MEDICAL DIRECTORNATI LAUREN M.D. Performed By: #### E SR, BMP, MG, CBC ####[address] Erythrocyte sedimentation ra te by Photometric methodOrdered By: Annabel Boo on 11-05-2022 ESR Photometric method (Bld) [Velocity] 82 mm/hr 0-19 [facility] Gram Stainon 11-05-2022 Microscopic observation Gram stain Nom (Unsp spec) Normal [facility] Comment on above: Performed By: #### G S, AERC ####[address] Hepatic Panelon 11-05-2022 Albumin [Mass/Vol] 2.9 g/dL Low 3.5-5.7 [facility] Comment on above: Performed By: #### B NANOTECHNOLOGY ENGINEERING TECHNICIAN, LACTIC, HS TROP, HEPATIC ####[address]#### PROCALCITONIN ####[facility] , Albumin/Globulin [Mass ratio] 1.0 {ratio} Normal [facility] Comment on above: Performed By: #### B NANOTECHNOLOGY ENGINEERING TECHNICIAN, LACTIC, HS TROP, HEPATIC ####[address]#### PROCALCITONIN ####[facility] , ALP [Catalytic activity/Vol] 79 U/L Normal 34-104 [facility] Comment on above: Result Comment: PERF ORMED BY:[place] [address] [place] [place], [place] [phone] MEDICAL DIRECTORNATI LAUREN M.D. Performed By: #### B NANOTECHNOLOGY ENGINEERING TECHNICIAN, LACTIC, HS TROP, HEPATIC ####[facility] [address]#### PROCALCITONIN ####[facility] , ALT [Catalytic activity/Vol] 24 U/L Normal 7-52 [facility] Comment on above: Performed By: #### B NANOTECHNOLOGY ENGINEERING TECHNICIAN, LACTIC, HS TROP, HEPATIC ####[address]#### PROCALCITONIN ####[facility] , AST [Catalytic activity/Vol] 12 U/L Low 13-39 [facility] Comment on above: Performed By: #### B NANOTECHNOLOGY ENGINEERING TECHNICIAN, LACTIC, HS TROP, HEPATIC ####[address]#### PROCALCITONIN ####[facility] , Bilirubin [Mass/Vol] 0.4 mg/dL Normal 0.3-1.0 [facility] Comment on above: Performed By: #### B NANOTECHNOLOGY ENGINEERING TECHNICIAN, LACTIC, HS TROP, HEPATIC ####[address]#### PROCALCITONIN ####[facility] , Bilirubin,Indirect 0.3 mg/dL Normal [facility] Comment on above: Performed By: #### B NANOTECHNOLOGY ENGINEERING TECHNICIAN, LACTIC, HS TROP, HEPATIC ####[address]#### PROCALCITONIN ####[facility] , Bilirubin.indirect [Mass/Vol] 0.10 mg/dL Normal 0.03-0.18 [facility] Comment on above: Performed By: #### B NANOTECHNOLOGY ENGINEERING TECHNICIAN, LACTIC, HS TROP, HEPATIC ####[place] [address] [place]#### PROCALCITONIN ####[facility] , Globulin (S) [Mass/Vol] 2.8 g/dL Normal [facility] Comment on above: Performed By: #### B NANOTECHNOLOGY ENGINEERING TECHNICIAN, LACTIC, HS TROP, HEPATIC ####[facility] [place] [address] [place]#### PROCALCITONIN ####[facility] , Protein [Mass/Vol] 5.7 g/dL Low 6.4-8.9 [facility] Comment on above: Performed By: #### B NANOTECHNOLOGY ENGINEERING TECHNICIAN, LACTIC, HS TROP, HEPATIC ####[place] [id number] [place] [id number] [place]#### PROCALCITONIN ####[facility] , LACTATE/LACTIC ACIDon 2022 Lactate [Moles/Vol] 1.1 mmol/L Normal 0.4-2.0 [facility] Comment on above: Performed By: #### L ACT #### [facility] [address] [address] [address] Epi Goldstein Lactate [Moles/volume] in Se rum or PlasmaOrdered By: Netta Wiseman on 11-05-2022 Lactate [Moles/Vol] 0.9 mmol/L 0.5-2.2 [facility] Lactic Acidon 11-05-2022 Lactate [Moles/Vol] 0.9 mmol/L Normal 0.5-2.2 [facility] Comment on above: Result Comment: PERF ORMED BY:[address] [place], [place] [phone] MEDICAL DIRECTORNATI LAUREN M.D. Performed By: #### B NANOTECHNOLOGY ENGINEERING TECHNICIAN, LACTIC, HS TROP, HEPATIC ####[place] [address] [place] [id number] [place]#### PROCALCITONIN ####[facility] , Magnesiumon 11-05-2022 Magnesium [Mass/Vol] 1.9 mg/dL Normal 1.9-2.7 [facility] Comment on above: Result Comment: PERF ORMED BY:[address] [place], [place] [phone] MEDICAL DIRECTORNATI LAUREN M.D. Performed By: #### E SR, BMP, MG, CBC ####[facility] [address] [place] [address] [place] Natriuretic peptide B [Mass/ Vol]Ordered By: Netta Wiseman on 11-05-2022 Natriuretic peptide B (Bld) [Mass/Vol] 130.0 pg/mL 5-100 [facility] No Panel InformationOrdered By: Netta Wiseman on 11-05-2022 Arterial Blood pCO2 (Temp correct) 40.4 mm[Hg] 35.0-45.0 [facility] Arterial Blood pH (Temp corrected) 7.41 7.35-7.45 [facility] Arterial Blood pO2 (Temp corrected) 61.0 mm[Hg] 80.0-100.0 [facility] Blood Gas Liter Flow 14 L/min [facility] Procalcitoninon 11-05-2022 Procalcitonin 0.32 ng/mL High 0.00-0.08 [facility] Comment on above: Result Comment: A pr ocalcitonin (PCT) level above 2.0 ng/mL on the first day of ICU admission is associated with a high risk for progression to severe sepsis and/or septic shock. A PCT level below 0.5 ng/mL on the first day of ICU admission is associated with a low risk for progression to severe sepsis and/or septic shock. Note: Concentrations <0.5 ng/mL do not exclude an infection, on account of localized infections (without systemic signs) which can be associated with such low concentrations, or a systemic infection in its initial stages (<6 hours). Furthermore, increased procalcitonin can occur without infection. PCT concentrations between 0.5 and 2.0 ng/mL should be interpreted taking into account the patient's history. It is recommended to retest PCT within 6-24 hours if any concentrations <2 ng/mL are obtained. Performed at: [address] [id number] Ground Host/Hostess: Marla Bravo MD, Phone: [phone] BY:[facility] [place], [place] [phone] MEDICAL DIRECTORNATI LAUREN M.D. Performed By: #### B NANOTECHNOLOGY ENGINEERING TECHNICIAN, LACTIC, HS TROP, HEPATIC ####[facility] [id number] [place] [id number] [facility]#### PROCALCITONIN ####[facility] , Respiratory (Upper) Panel, P CRon 11-05-2022 Respiratory (Upper) Panel, PCR Normal [facility] Comment on above: Performed By: #### B IOFIRECOVNOTDE, RESP PANEL UPP. ####[facility] [id number] [place] [id number] [facility] Serum procalcitonin measurem entOrdered By: Netta Wiseman on 11-05-2022 Procalcitonin [Mass/Vol] 0.32 ng/mL 0.00-0.08 [facility] Comment on above: A procalcitonin (PCT ) level above 2.0 ng/mL on the firstday of ICU admission is associated with a high risk forprogression to severe sepsis and/or septic shock.A PCT level below 0.5 ng/mL on the first day of ICUadmission is associated with a low risk for progressionto severe sepsis and/or septic shock.Note: Concentrations <0.5 ng/mL do not exclude aninfection, on account of localized infections (withoutsystemic signs) which can be associated with such lowconcentrations, or a systemic infection in its initialstages (<6 hours).Furthermore, increased procalcitonin can occur withoutinfection. PCT concentrations between 0.5 and 2.0 ng/mLshould be interpreted taking into account the patient'shistory. It is recommended to retest PCT within 6-24 hoursif any concentrations <2 ng/mL are obtained.Performed at: - [facility] [id number] Director: Marla Bravo MD, Phone: [phone] Troponin I High Sensitivityo n 11-05-2022 Troponin I High Sensitivity 17.7 pg/mL Normal 0.0-20.0 [facility] Comment on above: Result Comment: PERF ORMED BY:[address] [place], [place] [phone] MEDICAL DIRECTORNATI LAUREN M.D. Performed By: #### B NANOTECHNOLOGY ENGINEERING TECHNICIAN, LACTIC, HS TROP, HEPATIC ####[facility] [id number]#### PROCALCITONIN ####[facility] , XR chest 1V portableon 11-05 XR chest 1V portable Normal [facility] CARDIAC RON ADMITon 023 CK [Catalytic activity/Vol] 67 U/L Normal 39-308 [facility] Comment on above: Performed By: #### B MP, CMADM #### [facility] [address] [place] [address] Dr. Epi Goldstein CK.MB [Mass/Vol] 0.75 ng/mL Normal <=3.60 [facility] Comment on above: Performed By: #### B YOSEPH, CMADM #### [facility] [address] [place] [address] Dr. Epi Goldstein HSTROP 6.4 pg/mL Normal 4.0-76.1 [facility] Comment on above: Result Comment: CUT- OFF POINTS HAVE BEEN ESTABLISHED BASED ON THE FOURTH UNIVERSAL DEFINITIONS OF MYOCARDIAL INFARCTION. THE UPPER REFERENCE LIMIT (URL) OF TROPONIN, DEFINED THE 99TH PERCENTILE OF cTnI DISTRIBUTION IN A REFERENCE POPULATION, HAS BEEN CONFIRMED THE DECISION THRESHOLD FOR PR DIAGNOSIS. Performed By: #### B YOSEPH, CMADM #### [facility] [address] [place] [address] Dr. Epi Goldstein PRATIK 37 ng/mL Normal 16-96 [facility] Comment on above: Performed By: #### B MP, CMADM #### [facility] [address] [address] [address] Epi Goldstein CBC AUTO DIFFon 11-04-2022 BASO # 0.0 103/ul Normal 0.0-0.1 [facility] Comment on above: Performed By: #### C BC #### [facility] [address] [address] [address] Epi Goldstein Basophils/100 WBC (Bld) 0.2 % Normal 0.2-2.0 [facility] Comment on above: Performed By: #### C BC #### [facility] [address] [address] [address] Epi Goldstein EO # 0.0 103/ul Normal 0.0-0.7 [facility] Comment on above: Performed By: #### C BC #### [facility] [address] [address] [address] Epi Goldstein Eosinophils/100 WBC (Bld) 0.2 % Critically low 0.9-7.0 [facility] Comment on above: Performed By: #### C BC #### [facility] [address] [place] [address] Dr. Epi Goldstein Erythrocyte distribution width (RBC) [Ratio] 12.5 % Normal 11.0-15.0 [facility] Comment on above: Performed By: #### C BC #### [facility] [address] [place] [address] Dr. Epi Goldstein Hematocrit (Bld) [Volume fraction] 35.9 % Critically low 42.0-54.0 [facility] Comment on above: Performed By: #### C BC #### [facility] [address] [place] [address] Dr. Epi Goldstein Hemoglobin (Bld) [Mass/Vol] 12.0 g/dL Critically low 14.0-18.0 [facility] Comment on above: Performed By: #### C BC #### [facility] [address] [place] [address] Dr. Epi Goldstein IG # 0.13 10e3/ul Critically high 0.00-0.03 [facility] Comment on above: Performed By: #### C BC #### [facility] [address] [place] [address] Dr. Epi Goldstein IG % 0.6 % Critically high 0.0-0.5 [facility] Comment on above: Performed By: #### C BC #### [facility] [address] [place] [address] Dr. Epi Goldstein LYMPH # 2.7 103/ul Normal 1.2-3.8 [facility] Comment on above: Performed By: #### C BC #### [facility] [address] [place] [address] Dr. Epi Goldstein Lymphocytes/100 WBC (Bld) 13.0 % Critically low 20.5-60.0 [facility] Comment on above: Performed By: #### C BC #### [facility] [address] [place] [address] Dr. Epi Goldstein MANUAL DIFF REQ NO Normal [facility] Comment on above: Performed By: #### C BC #### [facility] [address] [place] [address] Dr. Epi Goldstein MCH (RBC) [Entitic mass] 30.5 pg Normal 25.9-34.0 [facility] Comment on above: Performed By: #### C BC #### [facility] [address] [place] [address] Dr. Epi Goldstein MCHC (RBC) [Mass/Vol] 33.4 g/dL Normal 29.9-35.2 [facility] Comment on above: Performed By: #### C BC #### [facility] [address] [place] [address] Dr. Epi Goldstein MCV (RBC) [Entitic vol] 91.1 fL Normal 80.0-94.0 [facility] Comment on above: Performed By: #### C BC #### [facility] [address] [place] [address] Dr. Epi Goldstein MONO # 1.7 103/ul Critically high 0.3-0.8 [facility] Comment on above: Performed By: #### C BC #### [facility] [address] [place] [address] Dr. Epi Goldstein Monocytes/100 WBC (Bld) 8.4 % Normal 1.7-12.0 [facility] Comment on above: Performed By: #### C BC #### [facility] [address] [place] [address] Dr. Epi Goldstein NEUT # 16.0 103/ul Critically high 1.4-6.5 [facility] Comment on above: Performed By: #### C BC #### [facility] [address] [address] [address] Epi Goldstein Neutrophils/100 WBC (Bld) 77.6 % Critically high 43.0-75.0 [facility] Comment on above: Performed By: #### C BC #### [facility] [address] [address] [address] Epi Goldstein Platelet mean volume (Bld) [Entitic vol] 9.9 fL Normal 9.5-13.5 [facility] Comment on above: Performed By: #### C BC #### [facility] [address] [address] [address] Epi Goldstein PLT 359 103/ul Normal 150-450 [facility] Comment on above: Performed By: #### C BC #### [facility] [address] [address] [address] Epi Goldstein RBC 3.94 106/ul Critically low 4.70-6.10 [facility] Comment on above: Performed By: #### C BC #### [facility] [address] [address] [address] Epi Goldstein WBC 20.6 103/ul Critically high 4.0-11.0 [facility] Comment on above: Result Comment: revi ewed slide to confirm Performed By: #### C BC #### [facility] [address] [place] [address] Dr. Epi Goldstein CTA CHEST WO W CONon 04-28-2 023 CTA CHEST WO W CON EXAMINATION: CHEST C T WITH CONTRAST (PULMONARY EMBOLISM PROTOCOL) Indication: CHEST PAIN, UNSPECIFIED Technique: Spiral CT acquisition of the chest from the thoracic inlet to the upper abdomen following IV contrast. Maximum intensity projection (MIP)reconstructions were performed. All CT scans at this facility use dose modulation, iterative reconstruction, and/or weight based dosing when appropriate to reduce radiation dose to as low as reasonably achievable. Contrast: 100 mL of Omnipaque 350 IV Comparison: Chest radiograph 08/27/2022 and 06/22/2021 RESULT: Limitations: None. Evaluation for thromboembolic disease: - Right heart chambers: No thromboembolic disease. - Main pulmonary arteries: No thromboembolic disease. - Lobar pulmonary arteries: No thromboembolic disease. - Segmental pulmonary arteries: No thromboembolic disease. - Subsegmental pulmonary arteries: No thromboembolic disease. Lines, tubes, and devices: None. Lung parenchyma and pleura: Central airways are patent with no endobronchial lesions. However, there is complete right lower lobe atelectasis secondary to attenuation of the right lower lobe bronchus from a 2.6 cm right hilar lymph node (series 4 image 46). Multifocal groundglass opacities, predominantly in the anterior subpleural upper lobes (series 5 images 26-51) and right lower lobe, concerning for pneumonia. No pneumothorax. No pleural effusion. Thoracic inlet, heart, and mediastinum: Multiple prominent to mildly enlarged lymph nodes including a 2.6 cm right hilar lymph node. Otherwise, no suspicious axillary or supraclavicular adenopathy. The thoracic aorta and main pulmonary artery are normal in caliber. The cardiac chambers are normal in size. No coronary artery atherosclerotic calcifications are noted, although the study is not optimized for coronary assessment. No pericardial effusion or thickening. Bones and soft tissues: No destructive bone lesion. Chest wall is unremarkable. Upper abdomen: No abnormality in the imaged upper abdomen. . IMPRESSION: 1. No CT evidence of pulmonary embolism. 2. Right lower lobe bronchus attenuation secondary to a 2.6 cm right hilar lymph node with resultant complete lobar atelectasis. 3. Multifocal groundglass opacities, concerning for pneumonia. Electronically authenticated by: SKYE WOODS Date: 2022-11-04 21:02 Normal [facility] CULTURE BLOODon 11-04-2022 Microscopic examination of blood, culture Culture Observations: NO GROWTH AT 5 DAYS. Normal [facility] Comment on above: Performed By: #### L ACT #### [facility] [address] [place] [address] Dr. Epi Golsdtein Microscopic examination of blood, culture Culture Observations: NO GROWTH AT 5 DAYS. Normal [facility] Comment on above: Performed By: #### L ACT #### [facility] [address] [place] [address] Dr. Epi Goldstein D-DIMERon 11-04-2022 D-DIMER 0.96 mg/L FEU Critically high <=0.59 [facility] Comment on above: Performed By: #### D DIM #### [facility] [address] [place] [address] Dr. Epi Goldstein D-DIMER COMMENTS SEE BELOW Normal [facility] Comment on above: Result Comment: Incr eases in D-Dimer concentration observed with thromboembolic events can be variable due to localization, size, and age of the thrombus. Therefore, a thromboembolic event cannot be diagnosed with certainty on the basis of the reference range. D-Dimers may also be elevated for a variety of disorders including: advanced age, , coronary disease, cancer, liver disease, infection, inflammation, hematoma, DIC, trauma, post-surgery, diabetes, thrombolytic or anticoagulant therapy, stress, and generalized hospitalization. Performed By: #### D DIM #### [facility] [address] [place] [address] Dr. Epi Goldstein LACTATE/LACTIC ACIDon 2022 Lactate [Moles/Vol] 0.8 mmol/L Normal 0.4-2.0 [facility] Comment on above: Performed By: #### L ACT #### [facility] [address] [place] [address] Dr. Epi Goldstein PROF CHEM 8 (BAS METB)on Anion gap [Moles/Vol] 9.2 mmol/L Normal [facility] Comment on above: Performed By: #### B SARA HAMEED #### [facility] [address] [place] [address] Dr. Epi Goldstein Calcium [Mass/Vol] 8.9 mg/dL Normal 8.5-10.1 [facility] Comment on above: Performed By: #### B SARA HAMEED #### [facility] [address] [place] [address] Dr. Epi Goldstein Chloride [Moles/Vol] 101 mmol/L Normal 98-107 [facility] Comment on above: Performed By: #### B SARA HAMEED #### [facility] [address] [place] [address] Dr. Epi Goldstein CO2 [Moles/Vol] 29.1 mmol/L Normal 21.0-32.0 [facility] Comment on above: Performed By: #### B MP, CMADM #### [facility] [address] [address] [address] Epi Goldstein Creatinine [Mass/Vol] 0.71 mg/dL Normal 0.70-1.30 [facility] Comment on above: Performed By: #### B YOSEPH, CMADM #### [facility] [address] [address] [address] Epi Goldstein EGFR-AF SAMMARINESE >60 Normal >=60 [facility] Comment on above: Performed By: #### B YOSEPH, CMADM #### [facility] [address] [address] [address] Epi Goldstein EGFR-NON AF SAMMARINESE >60 Normal >=60 [facility] Comment on above: Performed By: #### B YOSEPH, CMADM #### [facility] [address] [address] [address] Epi Goldstein Glucose [Mass/Vol] 105 mg/dL Normal 74-106 [facility] Comment on above: Performed By: #### B YOSEPH, CMADM #### [facility] [address] [address] [address] Epi Goldstein Potassium [Moles/Vol] 3.3 mmol/L Critically low 3.5-5.1 [facility] Comment on above: Performed By: #### B YOSEPH, CMADM #### [facility] [address] [address] [address] Epi Goldstein Sodium [Moles/Vol] 136 mmol/L Normal 136-145 [facility] Comment on above: Performed By: #### B YOSEPH, CMADM #### [facility] [address] [address] [address] Epi Goldstein Urea nitrogen [Mass/Vol] 10.0 mg/dL Normal 7.0-18.0 [facility] Comment on above: Performed By: #### B YOSEPH, CMADM #### [facility] [address] [address] [address] Epi Goldstein Urea nitrogen/Creatinine [Mass ratio] 14.1 mg/mg Normal [facility] Comment on above: Performed By: #### B YOSEPH, CMADM #### [facility] [address] [place] [address] Dr. Epi Goldstein RESPIRATORY PANEL PLUSon Adenovirus Not detected Normal NOT DETECTED [facility] Comment on above: Performed By: #### R SPLUS #### [facility] [address] [place] [address] Dr. Epi Miller Parapertusis Not detected Normal NOT DETECTED [facility] Comment on above: Performed By: #### R SPLUS #### [facility] [address] [place] [address] Dr. Epi Miller Pertussis Not detected Normal NOT DETECTED [facility] Comment on above: Performed By: #### R SPLUS #### [facility] [address] [place] [address] Dr. Epi Goldstein Chlamydia Pneumoniae Not detected Normal NOT DETECTED [facility] Comment on above: Performed By: #### R SPLUS #### [facility] [address] [place] [address] Dr. Epi Goldstein Coronavirus 229E Not detected Normal NOT DETECTED [facility] Comment on above: Performed By: #### R SPLUS #### [facility] [address] [place] [address] Dr. Epi Goldstein Coronavirus HKU1 Not detected Normal NOT DETECTED [facility] Comment on above: Performed By: #### R SPLUS #### [facility] [address] [place] [address] Dr. Epi Goldstein Coronavirus NL63 Not detected Normal NOT DETECTED [facility] Comment on above: Performed By: #### R SPLUS #### [facility] [address] [place] [address] Dr. Epi Goldstein Coronavirus OC43 Not detected Normal NOT DETECTED [facility] Comment on above: Performed By: #### R SPLUS #### [facility] [address] [place] [address] Dr. Epi Goldstein Influenza A H1 Not detected Normal NOT DETECTED [facility] Comment on above: Performed By: #### R SPLUS #### [facility] [address] [place] [address] Dr. Epi Goldstein Influenza A H1 2009 Not detected Normal NOT DETECTED [facility] Comment on above: Performed By: #### R SPLUS #### [facility] [address] [place] [address] Dr. Epi Goldstein Influenza A H3 Not detected Normal NOT DETECTED [facility] Comment on above: Performed By: #### R SPLUS #### [facility] [address] [place] [address] Dr. Epi Goldstein Influenza B Not detected Normal NOT DETECTED [facility] Comment on above: Performed By: #### R SPLUS #### [facility] [address] [place] [address] Dr. Epi Goldstein Metapneumovirus Not detected Normal NOT DETECTED [facility] Comment on above: Performed By: #### R SPLUS #### [facility] [address] [place] [address] Dr. Epi Goldstein Mycoplas. Pneumoniae Not detected Normal NOT DETECTED [facility] Comment on above: Performed By: #### R SPLUS #### [facility] [address] [place] [address] Dr. Epi Goldstein Parainfluenza 1 Not detected Normal NOT DETECTED [facility] Comment on above: Performed By: #### R SPLUS #### [facility] [address] [place] [address] Dr. Epi Goldstein Parainfluenza 2 Not detected Normal NOT DETECTED [facility] Comment on above: Performed By: #### R SPLUS #### [facility] [address] [place] [address] Dr. Epi Goldstein Parainfluenza 3 Not detected Normal NOT DETECTED [facility] Comment on above: Performed By: #### R SPLUS #### [facility] [address] [place] [address] Dr. Epi Goldstein Parainfluenza 4 Not detected Normal NOT DETECTED [facility] Comment on above: Performed By: #### R SPLUS #### [facility] [address] [place] [address] Dr. Epi Goldstein Rhino/Enterovirus Not detected Normal NOT DETECTED [facility] Comment on above: Performed By: #### R SPLUS #### [facility] [address] [place] [address] Dr. Epi Goldstein RP2 Header 1 RESPIRATORY PANEL: VIRUSES Normal [facility] Comment on above: Performed By: #### R SPLUS #### [facility] [address] [place] [address] Dr. Epi Goldstein RP2 Header 2 RESPIRATORY PANEL: BACTERIA Normal [facility] Comment on above: Performed By: #### R SPLUS #### [facility] [address] [place] [address] Dr. Epi Goldstein RSV Not detected Normal NOT DETECTED [facility] Comment on above: Performed By: #### R SPLUS #### [facility] [address] [place] [address] Dr. Epi Goldstein SARS-CoV-2 (COVID-19) RNA ROWENA+probe Ql (Unsp spec) Not detected Normal NOT DETECTED [facility] Comment on above: Performed By: #### R SPLUS #### [facility] [address] [place] [address] Dr. Epi Goldstein Covid-19 PCR ([facility])on 08-10 SARS-CoV-2 (COVID-19) RNA ROWENA+probe Ql (Unsp spec) Not detected Normal NOT DETECTED [facility] Comment on above: Result Comment: When diagnostic testing is negative, the possibility of a false negative should be considered in the context of a patient's recent exposures and the presence of clinical signs and symptoms consistent with SARS-CoV-2. This test is not yet approved or cleared by the [place] FDA. When there are no FDA-approved or cleared tests available, and other criteria are met, FDA can make tests available under an emergency access mechanism called an Emergency Use Authorization (EUA). The EUA for this test is supported by the [place] of Health and Human Service's declaration that circumstances exist to justify the emergency use of in vitro diagnostics for the detection and/or diagnosis of the virus that causes COVID-19. This EUA will remain in effect for the duration of the COVID-19 declaration justifying emergency of IVDs, unless it is terminated or revoked by the FDA (after which the test may no longer be used). Performed By: #### L ACT #### [facility] [address] [place] [address] Dr. Epi Goldstein INFLUENZA A AND B AGon 08-27 [facility] SEE BELOW Normal [facility] Comment on above: Result Comment: Nega tive for Flu A protein angiten. Infection due to Flu A cannot be ruled out. Flu A angiten in the sample may be below the detection limit of the test. Performed By: #### L ACT #### [facility] [address] [place] [address] Dr. [facility] Normal [facility] Comment on above: Result Comment: Nega tive for Flu B protein antigen. Infection due to Flu B cannot be ruled out. Flu B antigen in the sample may be below the detection limit of the test. Performed By: #### L ACT #### [facility] [address] [place] [address] Dr. Epi Goldstein INFLUENZA A AG Negative Normal NEGATIVE SEE COMMENT [facility] Comment on above: Performed By: #### L ACT #### [facility] [address] [place] [address] Dr. Epi Goldstein INFLUENZA B AG Negative Normal NEGATIVE SEE COMMENT [facility] Comment on above: Performed By: #### L ACT #### [facility] [address] [place] [address] Dr. Epi Goldstein XR CHEST 1 Von 08-27-2022 XR CHEST 1 V EXAM: Chest x-ray HISTORY: Cough. COMPARISON: 06/22/2021 TECHNIQUE: Heart and vascularity are unremarkable. Lungs are expanded and free of focal infiltrates. FINDINGS: There is a small amount of atelectasis in the left lung base. IMPRESSION: 1. Small amount of atelectasis in the left lung base. No focal infiltrates. Electronically authenticated by: LORI RODRIGUEZ Date: 2022-08-27 20:19 Normal [facility] In office Testingon 08-24-19 23 In office Testing [id number]:1 27 Normal [facility] 08-09-2022 Consent [id number]#1.00CD:12 7 [facility] Registrationon 08-09-2022 Registration [id number]#1.00CD:12 7 [facility] COVID/FLU/RSV RT-PCRon 07-07 SARS-CoV-2 (COVID-19) RNA ROWENA+probe Ql (Unsp spec) Positive [facility] boolino Other COVID/FLU/RSV RT-PCR Negative [facility] boolino Other [place] 05-25-2022 Consent [id number]#1.00CD:12 7 [facility] Registrationon 05-25-2022 Registration [id number]#1.00CD:12 7 [facility] CBC AUTO DIFFon 03-12-2022 BASO # 0.1 103/ul Normal 0.0-0.1 [facility] Comment on above: Performed By: #### C BC #### [facility] [address] [place] [address] Dr. Epi Goldstein Basophils/100 WBC (Bld) 0.9 % Normal 0.2-2.0 [facility] Comment on above: Performed By: #### C BC #### [facility] [address] [place] [address] Dr. Epi Goldstein EO # 0.4 103/ul Normal 0.0-0.7 [facility] Comment on above: Performed By: #### C BC #### [facility] [address] [address] [address] Epi Goldstein Eosinophils/100 WBC (Bld) 4.4 % Normal 0.9-7.0 [facility] Comment on above: Performed By: #### C BC #### [facility] [address] [place] [address] Dr. Epi Goldstein Erythrocyte distribution width (RBC) [Ratio] 12.4 % Normal 11.0-15.0 [facility] Comment on above: Performed By: #### C BC #### [facility] [address] [place] [address] Dr. Epi Goldstein Hematocrit (Bld) [Volume fraction] 35.1 % Critically low 42.0-54.0 [facility] Comment on above: Performed By: #### C BC #### [facility] [address] [place] [address] Dr. Epi Goldstein Hemoglobin (Bld) [Mass/Vol] 11.8 g/dL Critically low 14.0-18.0 [facility] Comment on above: Performed By: #### C BC #### [facility] [address] [place] [address] Dr. Epi Goldstein IG # 0.02 10e3/ul Normal 0.00-0.03 [facility] Comment on above: Performed By: #### C BC #### [facility] [address] [place] [address] Dr. Epi Goldstein IG % 0.2 % Normal 0.0-0.5 [facility] Comment on above: Performed By: #### C BC #### [facility] [address] [place] [address] Dr. Epi Goldstein LYMPH # 2.9 103/ul Normal 1.2-3.8 [facility] Comment on above: Performed By: #### C BC #### [facility] [address] [place] [address] Dr. Epi Goldstein Lymphocytes/100 WBC (Bld) 29.8 % Normal 20.5-60.0 [facility] Comment on above: Performed By: #### C BC #### [facility] [address] [place] [address] Dr. Epi Goldstein MANUAL DIFF REQ NO Normal [facility] Comment on above: Performed By: #### C BC #### [facility] [address] [place] [address] Dr. Epi Goldstein MCH (RBC) [Entitic mass] 30.7 pg Normal 25.9-34.0 [facility] Comment on above: Performed By: #### C BC #### [facility] [address] [place] [address] Dr. Epi Goldstein MCHC (RBC) [Mass/Vol] 33.6 g/dL Normal 29.9-35.2 [facility] Comment on above: Performed By: #### C BC #### [facility] [address] [place] [address] Dr. Epi Goldstein MCV (RBC) [Entitic vol] 91.4 fL Normal 80.0-94.0 [facility] Comment on above: Performed By: #### C BC #### [facility] [address] [place] [address] Dr. Epi Goldstein MONO # 0.8 103/ul Normal 0.3-0.8 [facility] Comment on above: Performed By: #### C BC #### [facility] [address] [place] [address] Dr. Epi Goldstein Monocytes/100 WBC (Bld) 8.1 % Normal 1.7-12.0 [facility] Comment on above: Performed By: #### C BC #### [facility] [address] [place] [address] Dr. Epi Goldstein NEUT # 5.5 103/ul Normal 1.4-6.5 [facility] Comment on above: Performed By: #### C BC #### [facility] [address] [place] [address] Dr. Epi Goldstein Neutrophils/100 WBC (Bld) 56.6 % Normal 43.0-75.0 [facility] Comment on above: Performed By: #### C BC #### [facility] [address] [place] [address] Dr. Epi Goldstein Platelet mean volume (Bld) [Entitic vol] 10.2 fL Normal 9.5-13.5 [facility] Comment on above: Performed By: #### C BC #### [facility] [address] [place] [address] Dr. Epi Goldstein PLT 237 103/ul Normal 150-450 [facility] Comment on above: Performed By: #### C BC #### [facility] [address] [place] [address] Dr. Epi Goldstein RBC 3.84 106/ul Critically low 4.70-6.10 [facility] Comment on above: Performed By: #### C BC #### [facility] [address] [place] [address] Dr. Epi Goldstein WBC 9.7 103/ul Normal 4.0-11.0 [facility] Comment on above: Performed By: #### C BC #### [facility] [address] [place] [address] Dr. Epi Goldstein PROF CHEM 8 (BAS METB)on Anion gap [Moles/Vol] 13.2 mmol/L Normal [facility] Comment on above: Performed By: #### B MP #### [facility] [address] [place] [address] Dr. Epi Goldstein Calcium [Mass/Vol] 8.3 mg/dL Critically low 8.5-10.1 [facility] Comment on above: Performed By: #### B MP #### [facility] [address] [place] [address] Dr. Epi Goldstein Chloride [Moles/Vol] 105 mmol/L Normal 98-107 [facility] Comment on above: Performed By: #### B MP #### [facility] [address] [place] [address] Dr. Epi Goldstein CO2 [Moles/Vol] 26.7 mmol/L Normal 21.0-32.0 [facility] Comment on above: Performed By: #### B MP #### [facility] [address] [place] [address] Dr. Epi Goldstein Creatinine [Mass/Vol] 0.76 mg/dL Normal 0.70-1.30 [facility] Comment on above: Performed By: #### B MP #### [facility] [address] [place] [address] Dr. Epi Goldstein EGFR-AF SAMMARINESE >60 Normal >=60 [facility] Comment on above: Performed By: #### B MP #### [facility] [address] [address] [address] Epi Goldstein EGFR-NON AF SAMMARINESE >60 Normal >=60 [facility] Comment on above: Performed By: #### B MP #### [facility] [address] [address] [address] Epi Goldstein Glucose [Mass/Vol] 127 mg/dL Critically high 74-106 [facility] Comment on above: Performed By: #### B MP #### [facility] [address] [address] [address] Epi Goldstein Potassium [Moles/Vol] 3.9 mmol/L Normal 3.5-5.1 [facility] Comment on above: Performed By: #### B MP #### [facility] [address] [address] [address] Epi Goldstein Sodium [Moles/Vol] 141 mmol/L Normal 136-145 [facility] Comment on above: Performed By: #### B MP #### [facility] [address] [address] [address] Epi Goldstein Urea nitrogen [Mass/Vol] 14.0 mg/dL Normal 7.0-18.0 [facility] Comment on above: Performed By: #### B MP #### [facility] [address] [address] [address] Epi Goldstein Urea nitrogen/Creatinine [Mass ratio] 18.4 mg/mg Normal [facility] Comment on above: Performed By: #### B MP #### [facility] [address] [address] [address] Epi Goldstein US JAMES DOP LEG LTon 03-12-20 US JAMES DOP LEG LT US JAMES DOP LEG LT CLINICAL: Left leg pain, mid lateral calf. COMPARISON: 04/15/2020 TECHNIQUE: High-resolution grayscale and color Doppler sonography of the left lower extremity was performed using compression and augmentation techniques throughout. FINDINGS: Sonographic examination of the left lower extremity deep venous system including the common femoral, superficial femoral and popliteal veins, demonstrates normal compressibility, color-flow, respiratory variation, and augmentation. The origin and proximal segment of the greater saphenous vein also demonstrates normal compression and color-flow. The visualized calf veins show no evidence of thrombus. No evidence of mass or cyst is seen in the left mid lateral calf in the area of patient's reported clinical symptoms. IMPRESSION: No sonographic evidence of deep venous thrombosis in the left lower extremity. Electronically authenticated by: LORI DOWNEY Date: 2022-03-12 13:59 Normal [facility] XR TIB_FIB LT 2Von 2 XR TIB_FIB LT 2V EXAM: XR TIB_FIB LT 2V DATE: 03/12/2022 12:32 PM EDT INDICATION: Pain COMPARISON: Knee radiographs 12/07/2020 TECHNIQUE: 2 views left tibia-fibula FINDINGS: No acute fracture. Normal osseous alignment. Osteoarthrosis at the knee and ankle. Calcaneal enthesophytes. Soft tissue swelling. IMPRESSION: 1. No acute osseous abnormality. 2. Osteoarthrosis of the knee and ankle. 3. Osteopenia. 4. Diffuse soft tissue swelling. Electronically authenticated by: MERI SIMPSON Date: 2022-03-12 14:19 Normal [facility] CNOVon 12-14-2018 CNOV Office Visit (PAINLN ) ----- LORI ANTON ([id number]) 1965 M Date Time Provider Department 12/14/18 10:15 AM STEVE WILSON During your visit today, we recorded the following information about you: Pulse Weight 63/minute 104.8 kg Steve Wilson DO 12/14/2018 10:53 AM Signed [facility] Initial Evaluation December 14, 2018 - 9:54 AM This appointment was requested by Bryce CUADRA, for my medical opinion regarding? the evaluation and management of the patient's LORI Anton problems, and my final recommendations will be communicated to the requesting health care provider by way of the shared medical record for internal providers or letter via the [employer] for external providers. SUBJECTIVE: LORI Anton a 53 year old presents to [facility], accompanied by self only, was referred by Bryce CUADRA, for an initial evaluation for low back. The pain is located in the low back and radiates to right lower extremity along lateral aspect and posterior aspect to the level of ankle Distribution: leg pain greater than back pain. Started 6 months ago, was not directly related to injury/trauma, and symptoms have been persistent. Characterized as burning and stabbing when walking Currently the pain is a rated at a 9 on a scale of 0-10. Worst pain score is rated at 10 on a scale of 0-10. Best pain score is rated at 7 on a scale of 0-10. Aggravated by sitting, standing, getting up from sitting and walking. Mitigated by lying down . Current treatments and response: Ibuprofen and a Tylenol together gives 10 minutes relief Prednisone 10 mg daily Response to previous treatments: Nothing Alcohol Abuse - No Drug Abuse - No Current Anticoagulant Therapy: No Sleep Disturbance: No PAST MEDICAL HISTORY Diagnosis Date - Anxiety - HTN (hypertension) - Knee pain - Lumbar pain PAST SURGICAL HISTORY Procedure Laterality Date - LIPOMA (LARGE) back of skull 15 years ago Social History Socioeconomic History Marital status: Spouse name: Not on file Number of children: Not on file Years of education: Not on file Highest education level: Not on file Social Needs Financial resource strain: Not on file Food insecurity - worry: Not on file Food insecurity - inability: Not on file Transportation needs - medical: Not on file Transportation needs - non-medical: Not on file Occupational History Not on file Tobacco Use Smoking status: Current Every Day Smoker Packs/day: 0.50 Years: 9.00 Pack years: 4.5 Types: Cigarettes Smokeless tobacco: Never Used Substance and Sexual Activity Alcohol use: Never Frequency: Never Drug use: Not Currently Types: Opiates Comment: [place] on Suboxone Sexual activity: Yes Partners: Female Other Topics Concerns: Not on file Social History Narrative Not on file No family history on file. ALLERGIES Allergen Reactions - Erythromycin Rash - Penicillin Other: See Comments Never tested for the allergy; one of his parents was allergic to it Current Outpatient Medications: celecoxib (CELEBREX) 200 mg capsule Take 1 capsule by mouth twice daily. SUBOXONE 8-2 mg film Dissolve 8 Film under the tongue twice daily. FLUoxetine (PROZAC) 20 mg capsule Take 20 mg by mouth. 1 capsule in the morning and 2 capsules at night carvedilol (COREG) 12.5 mg tablet Take 12.5 mg by mouth twice daily with meals. predniSONE (DELTASONE) 10 mg tablet Take 10 mg by mouth once daily. lisinopril (ZESTRIL, PRINIVIL) 10 mg tablet Take 10 mg by mouth once daily. No current facility-administered medications for this visit. Review of Symptoms: GENERAL:No weight loss, malaise or fevers., SEE HPI HEENT:Negative for frequent or significant headaches, No changes in hearing or vision, no nose bleeds or other nasal problems NECK:Negative for lumps, goiter, pain and significant neck swelling RESPIRATORY: Negative for cough, wheezing or shortness of breath. CARDIOVASCULAR: Negative for chest pain, leg swelling and palpitations GASTROINTESTINAL: Negative for abdominal discomfort, blood in stools or black stools or change in bowel habits GENITOURINARY: No history of dysuria, frequency or incontinence MAIL SERVICE COORDINATOR: NA MUSCULOSKELETAL: LBP SKIN:Negative for lesions, rash, and itching. PSYCHIATRIC: Positive for anxiety HEMATOLOGIC/LYMPHATIC/IMM UNOLOGIC:Negative for prolonged bleeding, bruising easily or swollen nodes. ENDOCRINE: Negative for cold or heat intolerance, polyuria, polydipsia and goiter. The remainder of the ROS was negative. PREVIOUS TREATMENTS LASTING SIX WEEKS IN THE LAST SIX MONTHS Active conservative therapy lasting 6 weeks in the last six months (see below) 1. Physical therapy: No 2. Home exercise program after PT: No 3. Occupational therapy: No 4. A physician supervised home exercise program (HEP): No 5. Flume Worker: No Passive conservative therapy lasting 6 weeks in the last six months (see below) 1. Medical devises: No 2. Acupuncture: No 3. Tens unit: No 4. Prescription pain medication: No 5. NSAIDS: Ibuprofen Do you feel safe at home? Yes Risk assessment at risk due to fall:NONE Heavenly Stafford Ma December 14, 2018 Time: 10:06 AM The subjective information, including chief complaint, past medical history and review of systems, was explored in detail with the patient and edited as needed and is complete. Steve Wilson DO December 14, 2018 Physical Examination: Pulse 63 Wt 231 lb (104.8kg) SpO2 95% General:well appearing, alert and in no acute distress Skin: skin color, texture, turgor normal, no rashes or lesions HEENT: normocephalic, atraumatic, sclera non-icteric Cardiovascular: Radial pulses intact and equal Lungs: Respirations even and non-labored. GI: Soft, non-tender, non-distended. : not examined Musculoskeletal: Neck: Supple; good ROM. Back: No pain on palpation of the lumbar spine. Full ROM without reproducible pain. Straight leg raising test negative bilaterally. Extremities: right knee painful ROM with crepitus Neurological: Mental Status: alert and oriented x 3 Cranial Nerves: Cranial nerves III-XII are grossly intact Reflexes: Deep tendon reflexes are 2+ all throughout. Motor Strength: Motor strength and tone are 5/5 all throughout. Sensory: Sensation was intact to light touch all throughout. Gait: Normal. The patient can walk on his heels. The patient can walk on his toes. Imaging: X-ray L-SPINE 2-3 VIEWS 10/08/2018 INDICATIONS: Acute bilateral lower extremity pain and numbness without injury FINDINGS: BONES: No acute fracture or spondylolisthesis. Mild rotatory levo curvature centered at L3. Mild to moderate degenerative spondylosis and facet osteoarthropathy most significant L5-S1 DISC SPACES: Multilevel disc space narrowing most significant L5-S1 PARASPINOUS: Negative. No paraspinous abnormality is seen. OTHER: Negative. CONCLUSION: 1. Mild to moderate degenerative spondylosis and facet osteoarthritis Apr ?4 2019 ?XR KNEE 4V AP/PA/LAT/MERCH RIYA ? Left. For patient's age the medial compartment is moderately narrowed with mild subchondral sclerosis. ?Remainder of the joint spaces are preserved with marginal osteophytes. ?A 2.1 cm joint body is located posterior laterally. Right. The medial compartment is moderately narrowed for patient's age, less so than the contralateral side. ?Remainder of the joint spaces are preserved with marginal osteophytes. No significant joint effusion or other abnormality. abnormality. OARRS website checked and validated. patient is on Suboxone - December 14, 2018 by Steve Wilson DO HPI AND ASSESSMENT: LORI Anton is a 53 year old male with chronic right buttock pain with RLE radiculopathy in the right L5 nerve root dermatomal distribution x 6 months since stopped taking his narcotics ( he ws on chronic opioids for years, stopped getting them in prescription 8 years ago and was getting them of the street since 8 years ago). He tried Gabapentin before with no pain relief. Naproxen, meloxicam and ibuprofen were tried with no pain relief. his pain is sharp burning in nature. He was on percocet and Vicodin and then was placed on Suboxone because he was abusing them ( taking way more than prescribed). He did not do any PT and he did not have any back injection. Patient denied any of the following worrisome symptoms that can be associated with low back pain, such as recent unexplained fever, unintentional weight loss, recent new onset bowel or bladder dysfunction, saddle anesthesia or recent immunodepressive disorder diagnosis. X-ray Lumbar spin e010/08/2018 showed Mild to moderate degenerative spondylosis and facet osteoarthritis He also C/O of bilateral knee pain secondary to OA, had seen Orthopedic, had steroid injection in both knee that helped the left knee but did not help his right knee. Clinically he has 2 problems right knee pain secondary to OA and RLE radiculopathy secondary to lumbar DDD and likely NFS. Will start PT, NSAID and Muscle relaxant and consider MRI lumbar spine and LESI, He will still need to F/U with Ortho Re-his right knee pain. (M54.17) Right lumbosacral radiculopathy (primary encounter diagnosis) (M51.36) DDD (degenerative disc disease), lumbar (M17.11) Primary osteoarthritis of right knee (M25.561, G89.29) Chronic pain of right knee PLAN: 1) Start Diclofenac and Tizanidine. 2) Start PT. 3) Consider MRI lumbar spine and LESI. 4) RTC in 8 weeks for F/U. The above plan and management options were discussed at length with patient. Patient is in agreement with the above and verbalized understanding. Thank you Bryce CUADRA for allowing me to participate in LORI Anton's care. Steve Wilson, December 14, 2018 Referring Provider: BRYCE GLASS (KHALIF) [[id number]] Allergies As of Date: 12/14/2018 Noted Allergy Reaction ERYTHROMYCIN 10/11/2018 2 - Rash PENICILLIN 10/11/2018 14 - Other: See Comments Comments: Never tested for the allergy; one of his parents was allergic to it Date Reviewed: 12/14/2018 Reviewed by: Steve Wilson - Fully Assessed Reason for Visit: Consult [502] Primary Visit Diagnosis:Right lumbosacral radiculopathy [M54.17] Other Visit Diagnoses:DDD (degenerative disc disease), lumbar [M51.36] Primary osteoarthritis of right knee [M17.11] Chronic pain of right knee [M25.561, G89.29] Order(s):CONSULT TO PHYSICAL THERAPY [9022] Order #: [id number]: 1 tiZANidine (ZANAFLEX) 4 mg tabletTake 1 tablet by mouth at bedtime as needed (muscle spasm).Disp: 30 tabletRfl: 2 diclofenac, EC, (VOLTAREN) 50 mg EC tabletTake 1 tablet by mouth twice daily as needed (moderate neck pain).Disp: 60 tabletRfl: 2 Prescriptions as of 12/14/2018 Sig: SUBOXONE 8 MG-2 MG SUBLINGUAL* Dissolve 8 Film under the ton* FLUOXETINE 20 MG CAPSULE Take 20 mg by mouth. 1 capsul* CARVEDILOL 12.5 MG TABLET Take 12.5 mg by mouth twice d* PREDNISONE 10 MG TABLET Take 10 mg by mouth once gideon* LISINOPRIL 10 MG TABLET Take 10 mg by mouth once gideon* TIZANIDINE 4 MG TABLET Take 1 tablet by mouth at bed* DICLOFENAC SODIUM 50 MG TABLE* Take 1 tablet by mouth twice * Problem List As Of Date: 12/14/2018 (None) Prescriptions ordered this encounter Disp Refills Start End TIZANIDINE 4 MG TABLET 30 t* 2 12/14/2018 03/14/2019 Route: ORAL Sig: Take 1 tablet by mouth at bedtime as needed (muscle spasm). DICLOFENAC SODIUM 50 MG TABLET,DELAY* 60 t* 2 12/14/2018 03/14/2019 Route: ORAL Sig: Take 1 tablet by mouth twice daily as needed (moderate neck pain). Medications Discontinued During This Encounter celecoxib (CELEBREX) 200 mg capsule 60 c* 0 12/14/2018 12/14/2018 Route: ORAL Sig: Take 1 capsule by mouth twice daily. Disc: Reason for discontinue is not on file. Encounter Status:Closed by STEVE WILSON DO on 12/14/18 [facility] Office Visit (LOORRM ) ----- LORI ANTON ([id number]) 1965 M Date Time Provider Department 12/14/18 9:00 AM BRYCE GLASS) LOORRJayesh During your visit today, we recorded the following information about you: Bryce Glass PA-C 12/14/2018 9:30 AM Signed HISTORY OF PRESENT ILLNESS: Lori is a 53 year old male. He is here for follow-up of his right knee. He saw Dr. Gonzalez in October for bilateral knee osteoarthritis and was given bilateral intra-articular steroid injections. Patient reports that the left knee is doing wonderful, no pain there. The right knee pain has improved some, but the leg pain he has been experiencing is unchanged. He describes pain deep in the posterior aspect of his buttock which goes down the posterior aspect of the leg and wraps around the lateral aspect of the lower leg and foot. Patient describes this is sharp and shooting pain. 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 He had some leftover prednisone at home which she started taking which has been helping. He stopped taking the naproxen due to side effects. Denies any bowel or bladder dysfunction. He had a back injury many years ago, but never did any follow-up or has had any intervention for his back. He has been wearing a knee brace which has has not provided much relief. Injury:No Location of pain: Right posterior buttock and posterior and lateral leg Quality: sharp and shooting pain from posterior buttock Severity:7/10 Swelling: Patient notes intermittent swelling of the joint. Aggravating/Alleving Factors:Aggravating Factors: Prolonged sitting, Regular daily ambulation Alleviating Factors: None Associated symptoms: None Previous treatment: medication (Celebrex and Naproxen) and injection (steroid injection to the right knee) NSAIDS: Celebrex and naproxen PT:No physical therapy program has been initiated. MEDICATIONS Current Outpatient Medications on File Prior to Visit: carvedilol (COREG) 12.5 mg tablet Take 12.5 mg by mouth twice daily with meals. predniSONE (DELTASONE) 10 mg tablet Take 10 mg by mouth once daily. lisinopril (ZESTRIL, PRINIVIL) 10 mg tablet Take 10 mg by mouth once daily. No current facility-administered medications on file prior to visit. ALLERGIES ALLERGIES Allergen Reactions - Erythromycin Rash - Penicillin Other: See Comments Never tested for the allergy; one of his parents was allergic to it PAST MEDICAL HISTORY No past medical history on file. PAST SURGICAL HISTORY No past surgical history on file. FAMILY HISTORY Does a similar condition to what you are experiencing run in your family? 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 History of persistent chest pain with negative heart catheter MUSCULOSKELETAL: See HPI All other systems negative. PHYSICAL EXAM: Body Habitus: well developed, well nourished Orientation: Normal: Oriented to person, place and time Affect: normal and appropriate Gait: antalgic: right Examination of the Right knee Knee Examination Right Knee Skin No evidence of eythema, warmth, bruising, abrasions, scars, swelling, atrophy or deformity about bilateral lower extremities. Effusion 1+ effusion Alignment normal Range of motion 5-120 degrees Quadriceps examination Able to perform straight leg raise and hold, extensor mechanism is intact Patellar examination Normal patellar mobility Tenderness medial joint line and medial femoral condyle Stability Collateral and cruciate knee ligaments (ACL/PCL/LCL/MCL) are all intact with no significant laxity noted bilaterally Additional Testing no significant restriction in hip range of motion and no contribution to the knee complaints today; FABY sign causes severe pain in the lower back/SI joint and down into his leg; SLR negatbe RADIOGRAPHS (personally reviewed): No new images today. Prior films do demonstrate osteoarthritis of bilateral knees DIAGNOSIS Encounter Diagnosis ICD-10-CM 1. Radiculopathy, lumbar region M54.16 CONSULT TO PHYSICAL THERAPY CONSULT TO PAIN MGT ANESTHESIA 2. Arthropathy of sacroiliac joint M47.818 CONSULT TO PHYSICAL THERAPY CONSULT TO PAIN MGT ANESTHESIA 3. Primary osteoarthritis of right knee M17.11 PLAN This is a patient who does have a known diagnosis of bilateral knee osteoarthritis. He got no improvement in his leg symptoms from the right knee intra-articular steroid injection. I believe most of his leg symptoms are consistent with a lumbar radiculopathy/SI joint pain. He is getting some relief from the prednisone he started at home. Patient states he has 7-10 pills left. I encouraged him to finish off the prednisone and then follow the prednisone with Celebrex 200 mg twice daily. I also placed an order for him to get started in physical therapy and to get set up with pain management or spine for a back evaluation. We'll see him back after evaluation for his back. PROCEDURE: None. Bryce Glass PA-C Referring Provider: SELF [[id number]] Allergies As of Date: 12/14/2018 Noted Allergy Reaction ERYTHROMYCIN 10/11/2018 2 - Rash PENICILLIN 10/11/2018 14 - Other: See Comments Comments: Never tested for the allergy; one of his parents was allergic to it Date Reviewed: 12/14/2018 Reviewed by: Quin Deutsch Ma - Fully Assessed Reason for Visit: Right Knee Pain [1209] Primary Visit Diagnosis:Radiculopathy, lumbar region [M54.16] Other Visit Diagnoses:Arthropathy of sacroiliac joint [M47.818] Primary osteoarthritis of right knee [M17.11] Order(s):celecoxib (CELEBREX) 200 mg capsuleTake 1 capsule by mouth twice daily.Disp: 60 capsuleRfl: 0 CONSULT TO PHYSICAL THERAPY [9032] Order #: [id number]: 1 CONSULT TO PAIN MGT ANESTHESIA [760880] Order #: [id number]: 1 Prescriptions as of 12/14/2018 Sig: CARVEDILOL 12.5 MG TABLET Take 12.5 mg by mouth twice d* PREDNISONE 10 MG TABLET Take 10 mg by mouth once gideon* LISINOPRIL 10 MG TABLET Take 10 mg by mouth once gideon* CELECOXIB 200 MG CAPSULE Take 1 capsule by mouth twice* Problem List As Of Date: 12/14/2018 (None) Prescriptions ordered this encounter Disp Refills Start End CELECOXIB 200 MG CAPSULE 60 c* 0 12/14/2018 01/13/2019 Route: ORAL Sig: Take 1 capsule by mouth twice daily. Medications Discontinued During This Encounter naproxen (NAPROSYN) 500 mg tablet 60 t* 1 10/11/2018 12/14/2018 Route: ORAL Sig: Take 1 tablet by mouth twice daily with meals. Disc: Side Effects Encounter Status:Closed by BRYCE GLASS on 12/14/18 [facility] PROGRESSon 12-14-2018 Protein mass conc HNO ID: [id number] Author: Steve Wilson Service: ? Author Type: Physician Type: Progress Notes Filed: 12/14/2018 10:53 AM Note Text: [facility] Initial Evaluation December 14, 2018 - 9:54 AM This appointment was requested by Bryce CUADRA, for my medical opinion regarding? the evaluation and management of the patient's LORI Anton problems, and my final recommendations will be communicated to the requesting health care provider by way of the shared medical record for internal providers or letter via the [employer] for external providers. SUBJECTIVE: LORI Anton a 53 year old presents to [facility], accompanied by self only, was referred by Bryce CUADRA, for an initial evaluation for low back. The pain is located in the low back and radiates to right lower extremity along lateral aspect and posterior aspect to the level of ankle Distribution: leg pain greater than back pain. Started 6 months ago, was not directly related to injury/trauma, and symptoms have been persistent. Characterized as burning and stabbing when walking Currently the pain is a rated at a 9 on a scale of 0-10. Worst pain score is rated at 10 on a scale of 0-10. Best pain score is rated at 7 on a scale of 0-10. Aggravated by sitting, standing, getting up from sitting and walking. Mitigated by lying down . Current treatments and response: Ibuprofen and a Tylenol together gives 10 minutes relief Prednisone 10 mg daily Response to previous treatments: Nothing Alcohol Abuse - No Drug Abuse - No Current Anticoagulant Therapy: No Sleep Disturbance: No PAST MEDICAL HISTORY Diagnosis Date - Anxiety - HTN (hypertension) - Knee pain - Lumbar pain PAST SURGICAL HISTORY Procedure Laterality Date - LIPOMA (LARGE) back of skull 15 years ago Social History Socioeconomic History Marital status: Spouse name: Not on file Number of children: Not on file Years of education: Not on file Highest education level: Not on file Social Needs Financial resource strain: Not on file Food insecurity - worry: Not on file Food insecurity - inability: Not on file Transportation needs - medical: Not on file Transportation needs - non-medical: Not on file Occupational History Not on file Tobacco Use Smoking status: Current Every Day Smoker Packs/day: 0.50 Years: 9.00 Pack years: 4.5 Types: Cigarettes Smokeless tobacco: Never Used Substance and Sexual Activity Alcohol use: Never Frequency: Never Drug use: Not Currently Types: Opiates Comment: Patinet on Suboxone Sexual activity: Yes Partners: Female Other Topics Concerns: Not on file Social History Narrative Not on file No family history on file. ALLERGIES Allergen Reactions - Erythromycin Rash - Penicillin Other: See Comments Never tested for the allergy; one of his parents was allergic to it Current Outpatient Medications: celecoxib (CELEBREX) 200 mg capsule Take 1 capsule by mouth twice daily. SUBOXONE 8-2 mg film Dissolve 8 Film under the tongue twice daily. FLUoxetine (PROZAC) 20 mg capsule Take 20 mg by mouth. 1 capsule in the morning and 2 capsules at night carvedilol (COREG) 12.5 mg tablet Take 12.5 mg by mouth twice daily with meals. predniSONE (DELTASONE) 10 mg tablet Take 10 mg by mouth once daily. lisinopril (ZESTRIL, PRINIVIL) 10 mg tablet Take 10 mg by mouth once daily. No current facility-administered medications for this visit. Review of Symptoms: GENERAL:No weight loss, malaise or fevers., SEE HPI HEENT:Negative for frequent or significant headaches, No changes in hearing or vision, no nose bleeds or other nasal problems NECK:Negative for lumps, goiter, pain and significant neck swelling RESPIRATORY: Negative for cough, wheezing or shortness of breath. CARDIOVASCULAR: Negative for chest pain, leg swelling and palpitations GASTROINTESTINAL: Negative for abdominal discomfort, blood in stools or black stools or change in bowel habits GENITOURINARY: No history of dysuria, frequency or incontinence MAIL SERVICE COORDINATOR: NA MUSCULOSKELETAL: LBP SKIN:Negative for lesions, rash, and itching. PSYCHIATRIC: Positive for anxiety HEMATOLOGIC/LYMPHATIC/IMM UNOLOGIC:Negative for prolonged bleeding, bruising easily or swollen nodes. ENDOCRINE: Negative for cold or heat intolerance, polyuria, polydipsia and goiter. The remainder of the ROS was negative. PREVIOUS TREATMENTS LASTING SIX WEEKS IN THE LAST SIX MONTHS Active conservative therapy lasting 6 weeks in the last six months (see below) 1. Physical therapy: No 2. Home exercise program after PT: No 3. Occupational therapy: No 4. A physician supervised home exercise program (HEP): No 5. Flume Worker: No Passive conservative therapy lasting 6 weeks in the last six months (see below) 1. Medical devises: No 2. Acupuncture: No 3. Tens unit: No 4. Prescription pain medication: No 5. NSAIDS: Ibuprofen Do you feel safe at home? Yes Risk assessment at risk due to fall:NONE Heavenly Rivera Adhikari December 14, 2018 Time: 10:06 AM The subjective information, including chief complaint, past medical history and review of systems, was explored in detail with the patient and edited as needed and is complete. Steve Wilson DO December 14, 2018 Physical Examination: Pulse 63 Wt 231 lb (104.8kg) SpO2 95% General:well appearing, alert and in no acute distress Skin: skin color, texture, turgor normal, no rashes or lesions HEENT: normocephalic, atraumatic, sclera non-icteric Cardiovascular: Radial pulses intact and equal Lungs: Respirations even and non-labored. GI: Soft, non-tender, non-distended. : not examined Musculoskeletal: Neck: Supple; good ROM. Back: No pain on palpation of the lumbar spine. Full ROM without reproducible pain. Straight leg raising test negative bilaterally. Extremities: right knee painful ROM with crepitus Neurological: Mental Status: alert and oriented x 3 Cranial Nerves: Cranial nerves III-XII are grossly intact Reflexes: Deep tendon reflexes are 2+ all throughout. Motor Strength: Motor strength and tone are 5/5 all throughout. Sensory: Sensation was intact to light touch all throughout. Gait: Normal. The patient can walk on his heels. The patient can walk on his toes. Imaging: X-ray L-SPINE 2-3 VIEWS 10/08/2018 INDICATIONS: Acute bilateral lower extremity pain and numbness without injury FINDINGS: BONES: No acute fracture or spondylolisthesis. Mild rotatory levo curvature centered at L3. Mild to moderate degenerative spondylosis and facet osteoarthropathy most significant L5-S1 DISC SPACES: Multilevel disc space narrowing most significant L5-S1 PARASPINOUS: Negative. No paraspinous abnormality is seen. OTHER: Negative. CONCLUSION: 1. Mild to moderate degenerative spondylosis and facet osteoarthritis Apr ?4 2019 ?XR KNEE 4V AP/PA/LAT/MERCH RIYA ? Left. For patient's age the medial compartment is moderately narrowed with mild subchondral sclerosis. ?Remainder of the joint spaces are preserved with marginal osteophytes. ?A 2.1 cm joint body is located posterior laterally. Right. The medial compartment is moderately narrowed for patient's age, less so than the contralateral side. ?Remainder of the joint spaces are preserved with marginal osteophytes. No significant joint effusion or other abnormality. abnormality. OARRS website checked and validated. patient is on Suboxone - December 14, 2018 by Steve Wilson DO HPI AND ASSESSMENT: LORI Anton is a 53 year old male with chronic right buttock pain with RLE radiculopathy in the right L5 nerve root dermatomal distribution x 6 months since stopped taking his narcotics ( he ws on chronic opioids for years, stopped getting them in prescription 8 years ago and was getting them of the street since 8 years ago). He tried Gabapentin before with no pain relief. Naproxen, meloxicam and ibuprofen were tried with no pain relief. his pain is sharp burning in nature. He was on percocet and Vicodin and then was placed on Suboxone because he was abusing them ( taking way more than prescribed). He did not do any PT and he did not have any back injection. Patient denied any of the following worrisome symptoms that can be associated with low back pain, such as recent unexplained fever, unintentional weight loss, recent new onset bowel or bladder dysfunction, saddle anesthesia or recent immunodepressive disorder diagnosis. X-ray Lumbar spin 10/08/2018 showed Mild to moderate degenerative spondylosis and facet osteoarthritis He also C/O of bilateral knee pain secondary to OA, had seen Orthopedic, had steroid injection in both knee that helped the left knee but did not help his right knee. Clinically he has 2 problems right knee pain secondary to OA and RLE radiculopathy secondary to lumbar DDD and likely NFS. Will start PT, NSAID and Muscle relaxant and consider MRI lumbar spine and LESI, He will still need to F/U with Ortho Re-his right knee pain. (M54.17) Right lumbosacral radiculopathy (primary encounter diagnosis) (M51.36) DDD (degenerative disc disease), lumbar (M17.11) Primary osteoarthritis of right knee (M25.561, G89.29) Chronic pain of right knee PLAN: 1) Start Diclofenac and Tizanidine. 2) Start PT. 3) Consider MRI lumbar spine and LESI. 4) RTC in 8 weeks for F/U. The above plan and management options were discussed at length with patient. Patient is in agreement with the above and verbalized understanding. Thank you Bryce CUADRA for allowing me to participate in LORI Anton's care. Steve Wilson, DO December 14, 2018 [facility] Protein mass conc HNO ID: [id number] Author: Bryce Glass (Pa) Service: ? Author Type: Physician Design Release Engineer Type: Progress Notes Filed: 12/14/2018 9:30 AM Note Text: HISTORY OF PRESENT ILLNESS: Lori is a 53 year old male. He is here for follow-up of his right knee. He saw Dr. Gonzalez in October for bilateral knee osteoarthritis and was given bilateral intra-articular steroid injections. Patient reports that the left knee is doing wonderful, no pain there. The right knee pain has improved some, but the leg pain he has been experiencing is unchanged. He describes pain deep in the posterior aspect of his buttock which goes down the posterior aspect of the leg and wraps around the lateral aspect of the lower leg and foot. Patient describes this is sharp and shooting pain. 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 He had some leftover prednisone at home which she started taking which has been helping. He stopped taking the naproxen due to side effects. Denies any bowel or bladder dysfunction. He had a back injury many years ago, but never did any follow-up or has had any intervention for his back. He has been wearing a knee brace which has has not provided much relief. Injury:No Location of pain: Right posterior buttock and posterior and lateral leg Quality: sharp and shooting pain from posterior buttock Severity:7/10 Swelling: Patient notes intermittent swelling of the joint. Aggravating/Alleving Factors:Aggravating Factors: Prolonged sitting, Regular daily ambulation Alleviating Factors: None Associated symptoms: None Previous treatment: medication (Celebrex and Naproxen) and injection (steroid injection to the right knee) NSAIDS: Celebrex and naproxen PT:No physical therapy program has been initiated. MEDICATIONS Current Outpatient Medications on File Prior to Visit: carvedilol (COREG) 12.5 mg tablet Take 12.5 mg by mouth twice daily with meals. predniSONE (DELTASONE) 10 mg tablet Take 10 mg by mouth once daily. lisinopril (ZESTRIL, PRINIVIL) 10 mg tablet Take 10 mg by mouth once daily. No current facility-administered medications on file prior to visit. ALLERGIES ALLERGIES Allergen Reactions - Erythromycin Rash - Penicillin Other: See Comments Never tested for the allergy; one of his parents was allergic to it PAST MEDICAL HISTORY No past medical history on file. PAST SURGICAL HISTORY No past surgical history on file. FAMILY HISTORY Does a similar condition to what you are experiencing run in your family? 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 History of persistent chest pain with negative heart catheter MUSCULOSKELETAL: See HPI All other systems negative. PHYSICAL EXAM: Body Habitus: well developed, well nourished Orientation: Normal: Oriented to person, place and time Affect: normal and appropriate Gait: antalgic: right Examination of the Right knee Knee Examination Right Knee Skin No evidence of eythema, warmth, bruising, abrasions, scars, swelling, atrophy or deformity about bilateral lower extremities. Effusion 1+ effusion Alignment normal Range of motion 5-120 degrees Quadriceps examination Able to perform straight leg raise and hold, extensor mechanism is intact Patellar examination Normal patellar mobility Tenderness medial joint line and medial femoral condyle Stability Collateral and cruciate knee ligaments (ACL/PCL/LCL/MCL) are all intact with no significant laxity noted bilaterally Additional Testing no significant restriction in hip range of motion and no contribution to the knee complaints today; FABY sign causes severe pain in the lower back/SI joint and down into his leg; SLR negatbe RADIOGRAPHS (personally reviewed): No new images today. Prior films do demonstrate osteoarthritis of bilateral knees DIAGNOSIS Encounter Diagnosis ICD-10-CM 1. Radiculopathy, lumbar region M54.16 CONSULT TO PHYSICAL THERAPY CONSULT TO PAIN MGT ANESTHESIA 2. Arthropathy of sacroiliac joint M47.818 CONSULT TO PHYSICAL THERAPY CONSULT TO PAIN MGT ANESTHESIA 3. Primary osteoarthritis of right knee M17.11 PLAN This is a patient who does have a known diagnosis of bilateral knee osteoarthritis. He got no improvement in his leg symptoms from the right knee intra-articular steroid injection. I believe most of his leg symptoms are consistent with a lumbar radiculopathy/SI joint pain. He is getting some relief from the prednisone he started at home. Patient states he has 7-10 pills left. I encouraged him to finish off the prednisone and then follow the prednisone with Celebrex 200 mg twice daily. I also placed an order for him to get started in physical therapy and to get set up with pain management or spine for a back evaluation. We'll see him back after evaluation for his back. PROCEDURE: None. Bryce Glass PA-C [facility] CNOVon 10-11-2018 CNOV Office Visit (LOORRM ) ----- LORI ANTON ([id number]) 1965 M Date Time Provider Department 10/11/18 11:00 AM THEODORE GONZALEZ JR During your visit today, we recorded the following information about you: Theodore Gonzalez Jr, MD 10/11/2018 11:09 AM Signed HISTORY OF PRESENT ILLNESS: Lori is a 53 year old male. He is here for evaluation of Bilateral knee pain. Injury:No Metal allergy: No Location: Knee Bilateral Pain: Yes LOCATION: Global and posterior PAIN SCALE: 15 on a scale of 0-10 PAIN CHARACTER: aching DURATION: (How long have you had the pain?) 3 months FREQUENCY: (How often does the pain occur?) occurs daily Onset: progressive Quality: aching Swelling: Patient notes intermittent swelling of the joint. Aggravating/alleviating factors:Aggravating Factors: Regular daily ambulation Alleviating Factors: Rest Mechanical symptoms: grinding Radiation: No Activities: walking Restriction: none Progression: Worsening Previous treatment: no medications, physical therapy, injections, bracing, advanced imaging or surgical evaluation NSAIDS: Patient has not used any prescription, OTC or herbal medications to aid in relief of this problem. PT:No physical therapy program has been initiated. MEDICATIONS Current Outpatient Medications on File Prior to Visit: carvedilol (COREG) 12.5 mg tablet Take 12.5 mg by mouth twice daily with meals. predniSONE (DELTASONE) 10 mg tablet Take 10 mg by mouth once daily. lisinopril (ZESTRIL, PRINIVIL) 10 mg tablet Take 10 mg by mouth once daily. No current facility-administered medications on file prior to visit. ALLERGIES ALLERGIES Allergen Reactions - Erythromycin Rash - Penicillin Other: See Comments Never tested for the allergy; one of his parents was allergic to it PAST MEDICAL HISTORY No past medical history on file. PAST SURGICAL HISTORY No past surgical history on file. SOCIAL HISTORY Marital Status: Tobacco: Smoker Alcohol: Unknown FAMILY HISTORY Does a similar condition to what you are experiencing run in your family? 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 No ROS: Have you or are you being treated for any conditions in the following areas: Head: No Eyes: No ENT: No Lungs: No Heart/BP: Yes: Hypertension Gastrointestinal: No Nephrology: No Neurological: No Psych: No Diabetes: No Rheumatology: No PHYSICAL EXAM: Examination of the Bilateral Knee Gait: Normal No Limp antalgic:right Inspection: genu varus Symmetry: Swelling no Redness no Ecchymosis no Effusion: 2 Palpation: Tenderness Yes: Knee: Distal medial and distal lateral femoral condyles bilaterally ROM: Knee- Extension: 5? on the right and 3? on the left Knee- Flexion: 115? on the right and 112? on the left Strength: 5 Stability: ligamentous instability with valgus/varus and anterior/posterior drawer stressing no Amy: Negative Thessaly: Positive Modified Apley: Negative Zee: Negative Patellar Compression: Positive Neurological/Vascular: Sensation grossly intact. Dorsalis pedis pulse palpable and 2+. Skin: Normal RADIOGRAPHS (personally reviewed): The patient has bilateral knee osteoarthritis MRI: None DIAGNOSIS Encounter Diagnosis ICD-10-CM 1. Primary osteoarthritis of both knees M17.0 PLAN Treatment options were discussed. He was started on steroid pills. We will discontinue those. We will administer bilateral knee intra-articular steroid injections into the knees. We will start him on Naprosyn. We talked about taking this with food and stopping it if it bothers his stomach. He will follow-up when necessary. PROCEDURE: Identity of the patient was verified. Procedure and site verified with the patient. Risks, benefits, alternatives, and personnel were discussed with the patient who consents to proceed. Audible time-out was performed. Under sterile conditions, patient received a intra-articular steroid injection in the bilateral knees, each injection consisting of 4 cc of 2% lidocaine without epinephrine, 4 cc of 0.25% Marcaine and 1 cc of 40 mg/mL of Kenalog. The patient tolerated the injections well. Theodore Gonzalez Jr, MD Referring Provider: SELF [[id number]] Allergies As of Date: 10/11/2018 Noted Allergy Reaction ERYTHROMYCIN 10/11/2018 2 - Rash PENICILLIN 10/11/2018 14 - Other: See Comments Comments: Never tested for the allergy; one of his parents was allergic to it Date Reviewed: 10/11/2018 Reviewed by: [facility] Reason for Visit: Bilateral Knee Pain [1210] Primary Visit Diagnosis:Primary osteoarthritis of both knees [M17.0] Order(s):naproxen (NAPROSYN) 500 mg tabletTake 1 tablet by mouth twice daily with meals.Disp: 60 tabletRfl: 1 bupivacaine 0.5 % 20 mg injection (MARCAINE MDV)Disp: Rfl: lidocaine (PF) 20 mg/mL (2 %) 80 mg injection (XYLOCAINE)Disp: Rfl: triamcinolone acetonide 80 mg injection (KENALOG 40)Disp: Rfl: Prescriptions as of 10/11/2018 Sig: CARVEDILOL 12.5 MG TABLET Take 12.5 mg by mouth twice d* PREDNISONE 10 MG TABLET Take 10 mg by mouth once gideon* LISINOPRIL 10 MG TABLET Take 10 mg by mouth once gideon* NAPROXEN 500 MG TABLET Take 1 tablet by mouth twice * Problem List As Of Date: 10/11/2018 (None) Prescriptions ordered this encounter Disp Refills Start End NAPROXEN 500 MG TABLET 60 t* 1 10/11/2018 Route: ORAL Sig: Take 1 tablet by mouth twice daily with meals. BUPIVACAINE 0.5 % (5 MG/ML) INJECTIO* 10/11/2018 10/11/2018 Route: IAtc LIDOCAINE (PF) 20 MG/ML (2 %) INJECT* 10/11/2018 10/11/2018 Route: OTHER TRIAMCINOLONE ACETONIDE 40 MG/ML ROSELINE* 10/11/2018 10/11/2018 Route: IAtc Encounter Status:Closed by THEODORE GONZALEZ JR, MD on 10/11/18 [facility] PROGRESSon 10-11-2018 Protein mass conc HNO ID: [id number] Author: Theodore Gonzalez Jr. Service: ? Author Type: Physician Type: Progress Notes Filed: 10/11/2018 11:09 AM Note Text: HISTORY OF PRESENT ILLNESS: Lori is a 53 year old male. He is here for evaluation of Bilateral knee pain. Injury:No Metal allergy: No Location: Knee Bilateral Pain: Yes LOCATION: Global and posterior PAIN SCALE: 15 on a scale of 0-10 PAIN CHARACTER: aching DURATION: (How long have you had the pain?) 3 months FREQUENCY: (How often does the pain occur?) occurs daily Onset: progressive Quality: aching Swelling: Patient notes intermittent swelling of the joint. Aggravating/alleviating factors:Aggravating Factors: Regular daily ambulation Alleviating Factors: Rest Mechanical symptoms: grinding Radiation: No Activities: walking Restriction: none Progression: Worsening Previous treatment: no medications, physical therapy, injections, bracing, advanced imaging or surgical evaluation NSAIDS: Patient has not used any prescription, OTC or herbal medications to aid in relief of this problem. PT:No physical therapy program has been initiated. MEDICATIONS Current Outpatient Medications on File Prior to Visit: carvedilol (COREG) 12.5 mg tablet Take 12.5 mg by mouth twice daily with meals. predniSONE (DELTASONE) 10 mg tablet Take 10 mg by mouth once daily. lisinopril (ZESTRIL, PRINIVIL) 10 mg tablet Take 10 mg by mouth once daily. No current facility-administered medications on file prior to visit. ALLERGIES ALLERGIES Allergen Reactions - Erythromycin Rash - Penicillin Other: See Comments Never tested for the allergy; one of his parents was allergic to it PAST MEDICAL HISTORY No past medical history on file. PAST SURGICAL HISTORY No past surgical history on file. SOCIAL HISTORY Marital Status: Tobacco: Smoker Alcohol: Unknown FAMILY HISTORY Does a similar condition to what you are experiencing run in your family? 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 No ROS: Have you or are you being treated for any conditions in the following areas: Head: No Eyes: No ENT: No Lungs: No Heart/BP: Yes: Hypertension Gastrointestinal: No Nephrology: No Neurological: No Psych: No Diabetes: No Rheumatology: No PHYSICAL EXAM: Examination of the Bilateral Knee Gait: Normal No Limp antalgic:right Inspection: genu varus Symmetry: Swelling no Redness no Ecchymosis no Effusion: 2 Palpation: Tenderness Yes: Knee: Distal medial and distal lateral femoral condyles bilaterally ROM: Knee- Extension: 5? on the right and 3? on the left Knee- Flexion: 115? on the right and 112? on the left Strength: 5 Stability: ligamentous instability with valgus/varus and anterior/posterior drawer stressing no Amy: Negative Thessaly: Positive Modified Apley: Negative Zee: Negative Patellar Compression: Positive Neurological/Vascular: Sensation grossly intact. Dorsalis pedis pulse palpable and 2+. Skin: Normal RADIOGRAPHS (personally reviewed): The patient has bilateral knee osteoarthritis MRI: None DIAGNOSIS Encounter Diagnosis ICD-10-CM 1. Primary osteoarthritis of both knees M17.0 PLAN Treatment options were discussed. He was started on steroid pills. We will discontinue those. We will administer bilateral knee intra-articular steroid injections into the knees. We will start him on Naprosyn. We talked about taking this with food and stopping it if it bothers his stomach. He will follow-up when necessary. PROCEDURE: Identity of the patient was verified. Procedure and site verified with the patient. Risks, benefits, alternatives, and personnel were discussed with the patient who consents to proceed. Audible time-out was performed. Under sterile conditions, patient received a intra-articular steroid injection in the bilateral knees, each injection consisting of 4 cc of 2% lidocaine without epinephrine, 4 cc of 0.25% Marcaine and 1 cc of 40 mg/mL of Kenalog. The patient tolerated the injections well. Theodore Gonzalez Jr, MD [facility] mass conc HNO ID: [id number] Author: Pallavi Pritchett (Rt) Vinh Glass Service: ? Author Type: Crew Attendant Type: Progress Notes Filed: 10/11/2018 10:07 AM Note Text: Radiology Service Progress Note PATIENT NAME: LORI Anton DATE OF SERVICE: October 11, 2018 TIME: 10:07 AM PATIENT IDENTITY VERIFICATION COMPLETED USING TWO (2) METHODS: Patient confirmed name verbally and Date of . PATIENT GENDER DATA: Male PATIENT RELEVANT IMPLANT DATA REVIEWED: Not Applicable RADIOLOGY DEPARTMENT: General X-ray: Exam(s) Completed: Lower Extremity X-Ray(s): Knee, AP / Lat / Tunne / Merchant Bilateral and Wt. Bearing: PERIPHERAL IV DATA: Not applicable SIGNED BY: RT Wendy October 11, 2018 10:07 AM [facility] XR KNEE 4V AP/PA/LAT/MERCH B ILon 10-11-2018 XR KNEE 4V AP/PA/LAT/MERCH RIYA * * *Final Report* * * DATE OF EXAM: Oct 11 2018 10:08AM LZX [id number] - XR KNEE 4V AP/PA/LAT/MERCH RIYA / PROCEDURE REASON: Osteoarthrosis involving lower leg * * * * Physician Interpretation * * * * EXAMINATION: XR KNEE 4V AP/PA/LAT/MERCH RIYA HISTORY: chroic riya knee pain rt knee worse than left, difficulty walking Osteoarthrosis involving lower leg . TECHNIQUE: XR KNEE 4V AP/PA/LAT/MERCH RIYA Laterality: BILATERAL Number of different views (projections): 4each M: XB_1 COMPARISON: None RESULT: Left. For patient's age the medial compartment is moderately narrowed with mild subchondral sclerosis. Remainder of the joint spaces are preserved with marginal osteophytes. A 2.1 cm joint body is located posterior laterally. Right. The medial compartment is moderately narrowed for patient's age, less so than the contralateral side. Remainder of the joint spaces are preserved with marginal osteophytes. No significant joint effusion or other abnormality. abnormality. IMPRESSION: Mild to moderate bilateral medial compartment degenerative arthritis for patient's age. 2.1 cm left posterolateral joint body. Cota: RUPESH Transcribe Date/Time: Oct 11 2018 10:14A Dictated by : ACE BUSTAMANTE MD This examination was interpreted and the report reviewed and electronically signed by: ACE BUSTAMANTE MD on Oct 11 2018 10:18AM EST [id number] [facility] Vital Signs Date Time Vital Sign Value Performing Clinician Facility 07-31-2023 19:51-0500 Body height 190.5 cm Shaista Aichholz Work Phone: [facility] 07-31-2023 19:51-0500 Body temperature 100.1 [degF] Shaista Aichholz Work Phone: [facility] 07-31-2023 19:51-0500 Body weight 92.98 kg Shaista Aichholz Work Phone: [facility] 07-31-2023 19:51-0500 Diastolic blood pressure 78 mm[Hg] Shaista Aichholz Work Phone: [facility] 07-31-2023 19:51-0500 Heart rate 96 /min Shaista Aichholz Work Phone: [facility] 07-31-2023 19:51-0500 Respiratory rate 16 /min Shaista Aichholz Work Phone: [facility] 07-31-2023 19:51-0500 SaO2% (BldA) [Mass fraction] 98 % Shaista Aichholz Work Phone: [facility] 07-31-2023 19:51-0500 Systolic blood pressure 133 mm[Hg] Shaitsa Aichholz Work Phone: [facility] 12-28-2022 08:30-0400 Body height 190.5 cm Bakaridevon Huitron Other [employer] Other 12-28-2022 08:30-0400 Body mass index (BMI) [Ratio] 25.77 kg/m2 Ismael Huitron Other [employer] [facility] Other 12-28-2022 08:30-0400 Body temperature 98.1 [degF] Ismael Huitron Other [employer] [facility] Other 12-28-2022 08:30-0400 Body weight 93.53 kg Ismael Huitron Other [employer] Other 12-28-2022 08:30-0400 Diastolic blood pressure 92 mm[Hg] Ismael Juárezban Other [employer] Other 12-28-2022 08:30-0400 Respiratory rate 20 /min Ismael Huitron Other [employer] Other 12-28-2022 08:30-0400 SaO2% (BldA) [Mass fraction] 98 % Ismael Huitron Other [employer] Other 12-28-2022 08:30-0400 Systolic blood pressure 152 mm[Hg] Ismael Huitron Other [employer] Other 12-08-2022 21:30-0400 Diastolic blood pressure 87 mm[Hg] Shaista Aichholz Work Phone: [facility] 12-08-2022 21:30-0400 Heart rate 65 /min Shaista Aichholz Work Phone: [facility] 12-08-2022 21:30-0400 Respiratory rate 18 /min Shaista Aichholz Work Phone: [facility] 12-08-2022 21:30-0400 SaO2% (BldA) [Mass fraction] 96 % Shaista Aichholz Work Phone: [facility] 12-08-2022 21:30-0400 Systolic blood pressure 134 mm[Hg] Shaista Aichholz Work Phone: [facility] 12-08-2022 19:30-0400 Body temperature 98.1 [degF] Shaista Aichholz Work Phone: [facility] 12-08-2022 17:36-0400 Body height 190.5 cm Shaista Aichholz Work Phone: [facility] 12-08-2022 17:36-0400 Body weight 91.1 kg Shaista Aichholz Work Phone: [facility] 11-21-2022 12:00-0400 Body temperature 98.1 [degF] Shaista Aichholz Work Phone: [facility] 11-21-2022 12:00-0400 Diastolic blood pressure 73 mm[Hg] Shaista Aichholz Work Phone: [facility] 11-21-2022 12:00-0400 Heart rate 74 /min Shaista Aichholz Work Phone: [facility] 11-21-2022 12:00-0400 Inhaled oxygen flow rate 4 L/min Shaista Aichholz Work Phone: [facility] 11-21-2022 12:00-0400 Respiratory rate 18 /min Shaista Aichholz Work Phone: [facility] 11-21-2022 12:00-0400 SaO2% (BldA) [Mass fraction] 95 % Shaista Aichholz Work Phone: [facility] 11-21-2022 12:00-0400 Systolic blood pressure 135 mm[Hg] Shaista Aichholz Work Phone: [facility] 11-21-2022 03:52-0400 Body weight 97.1 kg Shaista Aichholz Work Phone: [facility] 11-18-2022 09:00-0400 Inhaled oxygen concentration 40 % Shaista Aichholz Work Phone: [facility] 11-17-2022 13:54-0400 Body height 190.5 cm Shaista Robinisiahsushma Work Phone: [facility] 07-07-2022 17:45-0500 Body height 190.5 cm Supriya Kevin Other [employer] Other 07-07-2022 17:45-0500 Body mass index (BMI) [Ratio] 28.12 kg/m2 Supriya Kevin Other [employer] Other 07-07-2022 17:45-0500 Body temperature 100.5 [degF] Supriya Brown Other [employer] Other 07-07-2022 17:45-0500 Body weight 102.06 kg Supriya Brown Other [employer] Other 07-07-2022 17:45-0500 Diastolic blood pressure 84 mm[Hg] Supriya Brown Other [employer] Other 07-07-2022 17:45-0500 Respiratory rate 18 /min Supriya Brown Other [employer] Other 07-07-2022 17:45-0500 SaO2% (BldA) [Mass fraction] 97 % Supriya Brown Other [employer] Other 07-07-2022 17:45-0500 Systolic blood pressure 123 mm[Hg] Supriya Brown Other [employer] Other Encounters Encounter Date Encounter Type Care Provider Facility Start: 08-30-2023 End: 02-21-2024 ambulatory SHAISTA CJ Not Available Start: 07-31-2023 End: 08-01-2023 Emergency department patient visit Ej Garcia Facility:[facility] Start: 07-31-2023 End: 07-31-2023 Emergency department patient visit Shaista Robinisiahsushma Work Phone: [facility] Work Phone: Start: 05-23-2023 End: 05-24-2023 ambulatory Gregg PATTEN Facility:[facility] Start: 12-28-2022 End: 12-28-2022 ambulatory Ismael Huitron Other [employer] Other Start: 12-28-2022 Office outpatient visit 25 minutes Ismael Huitron [facility] Start: 12-26-2022 End: 12-26-2022 ambulatory Shaista Whittaker Cj Facility:[facility] Start: 12-26-2022 End: 12-26-2022 ambulatory Shaista Whittaker Jeannettesheila Work Phone: [facility] Work Phone: Start: 12-26-2022 End: 12-26-2022 Patient encounter procedure Shaista Corona Work Phone: [facility] [place] Work Phone: Start: 12-15-2022 End: 12-16-2022 ambulatory Rosa Christopher CORTEZ Facility:[facility] Start: 12-08-2022 End: 12-08-2022 Emergency department patient visit Lisha Silva Facility:[facility] Start: 12-08-2022 End: 12-08-2022 Emergency department patient visit Shaista Cj Work Phone: [facility] Work Phone: Start: 11-05-2022 End: 11-21-2022 Evaluation and management of inpatient Sanjay Holt Facility:[facility] Start: 11-05-2022 End: 11-21-2022 Evaluation and management of inpatient Shaista Aichholz Work Phone: [facility] [place] [facility] Work Phone: Start: 11-04-2022 End: 11-05-2022 ambulatory RADHA CORONA Facility:[facility] Start: 11-03-2022 End: 11-03-2022 ambulatory RADHA CORONA Facility:[facility] Start: 08-27-2022 End: 08-27-2022 ambulatory CATRACHITO ALONZO . Facility:[facility] Start: 08-09-2022 End: 08-10-2022 ambulatory Gregg GOLDEN Facility:[facility] Start: 07-07-2022 End: 07-07-2022 ambulatory Supriya Brown Other [employer] Other Start: 07-07-2022 Office outpatient ne w 20 minutes Supriya Brown [facility] Start: 05-25-2022 End: 05-26-2022 ambulatory Gregg GOLDEN Facility[facility] Start: 03-12-2022 End: 03-12-2022 ambulatory RADHA CORONA Facility:[facility] Procedures Date Procedure Procedure Detail Performing Clinician Start: 07-31-2023 SARS-CoV-2, Influenz a & RSV (PCR) Shaista Corona Work Phone: Start: 12-26-2022 Plain chest X-ray Shaista Corona Work Phone: Start: 12-08-2022 CT angiography of thorax Shaista Corona Work Phone: Start: 11-20-2022 Plain chest X-ray Shaista Corona Work Phone: Start: 11-18-2022 Plain chest X-ray Shaista Corona Work Phone: Start: 11-17-2022 Aerobic microbial culture Shaista Corona Work Phone: Start: 11-17-2022 Blood culture for ba cteria, including anaerobic screen Shaista Corona Work Phone: Start: 11-17-2022 Investigation of transfusion reaction Shaista Corona Work Phone: Start: 11-17-2022 Plain chest X-ray Shaista Corona Work Phone: Start: 11-16-2022 Urine culture Shaista huang Work Phone: Start: 11-16-2022 CT angiography of thorax Shaista Corona Work Phone: Start: 11-16-2022 Plain chest X-ray Shaista Corona Work Phone: Start: 11-15-2022 Plain chest X-ray Shaista Corona Work Phone: Start: 11-14-2022 DH Bronchoscopy Flex ible (Not Applicable) Shaista Corona Work Phone: Start: 11-14-2022 End: 11-14-2022 Plain chest X-ray Shaista Corona Work Phone: Start: 11-13-2022 Plain chest X-ray Shaista Corona Work Phone: Start: 11-12-2022 Duplex scan of lower limb veins Shaista Corona Work Phone: Start: 11-12-2022 End: 11-12-2022 Plain chest X-ray Shaista Corona Work Phone: Start: 11-11-2022 Plain chest X-ray Shaista Corona Work Phone: Start: 11-10-2022 End: 11-10-2022 Plain chest X-ray Shaistadeo Corona Work Phone: Start: 11-09-2022 End: 11-09-2022 Plain chest X-ray Shaistadeo Corona Work Phone: Start: 11-08-2022 End: 11-08-2022 Plain chest X-ray Shaista Corona Work Phone: Start: 11-07-2022 Plain chest X-ray Shaista Corona Work Phone: Start: 11-07-2022 End: 11-07-2022 Plain chest X-ray Shaista Corona Work Phone: Start: 11-06-2022 CT of thorax with contrast Shaista Corona Work Phone: Start: 11-05-2022 Plain chest X-ray Shaista Corona Work Phone: Plan of Treatment Date Care Activity Detail Author Start: 11-21-2022 [facility] Start: 11-20-2022 Administration of prophylactic treatment [facility] Start: 11-19-2022 Physical therapy procedure [facility] Start: 11-17-2022 Blood culture for bacteria, including anaerobic screen Blood Culture [facility] Start: 11-17-2022 Fungal Culture Result 2 Fungal Culture Result 2 [facility] Start: 11-17-2022 Mycology culture [facility] Start: 11-14-2022 [facility] Start: 11-06-2022 Referral to infectious diseases physician [facility] Start: 11-05-2022 Drainage of Right Pleural Cavity with Drainage Device, Percutaneous Approach Drainage of Right Pleural Cavity with Drainage Device, Percutaneous Approach [facility] Start: 11-05-2022 Insertion of Endotracheal Airway into Trachea, Via Natural or Artificial Opening Insertion of Endotracheal Airway into Trachea, Via Natural or Artificial Opening [facility] Start: 11-05-2022 Insertion of Infusion Device into Superior Vena Cava, Percutaneous Approach Insertion of Infusion Device into Superior Vena Cava, Percutaneous Approach [facility] Start: 11-05-2022 Inspection of Tracheobronchial Tree, Via Natural or Artificial Opening Endoscopic Inspection of Tracheobronchial Tree, Via Natural or Artificial Opening Endoscopic [facility] Start: 11-05-2022 Irrigation of Respiratory Tract using Irrigating Substance, Via Natural or Artificial Opening Endoscopic, Diagnostic Irrigation of Respiratory Tract using Irrigating Substance, Via Natural or Artificial Opening Endoscopic, Diagnostic [facility] Start: 11-05-2022 Respiratory Ventilation, Greater than 96 Consecutive Hours Respiratory Ventilation, Greater than 96 Consecutive Hours [facility] Start: 11-05-2022 Sleep disorder assessment [facility] Start: 11-05-2022 Consultation [facility] Start: 11-05-2022 Hospital admission [facility] Fungus identified in Unspecified specimen by Culture [facility] Mycobacterium sp identified in Unspecified specimen by Organism specific culture [facility] Patient Education [facility] Work Phone: Patient referral [facility] Work Phone: XR Chest 2 Views [facility] Payers Date Payer Category Payer Self-pay [id number] 1965 Unknown [id number] 2.16.84 [id number] 1965 Unknown [id number] [id number] [id number] 1965 Unknown [id number] 2.16.84 [id number] 1965 Unknown [id number] 2.16.84 [id number] 1965 Unknown [id number] 2.16.84 [id number] 1959 [facility] [id number] Unknown [id number] [id number] Unknown [id number] 2.16.8 [id number] Unknown [id number] [id number] [id number] Unknown [id number] [id number] Social History Date Type Detail Facility Sex Assigned At [facility] Start: 11-07-2022 End: 12-08-2022 Tobacco smoking status NHIS Smoker (finding) [facility] Start: 1965 Sex Assigned At Male F [facility] Start: 07-31-2023 Tobacco smoking stat us NHIS Current some day smoker [facility] Goals Date Patient Goal Desired Activity /State Functional Status Date Assessment Result Facility 11-21-2022 Functional status 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 Baseline [facility] Work Phone: Mental Status Date Assessment Result Facility 11-21-2022 Cognitive function Cognitive Sta tus Patient is Progressing Toward Baseline [facility] Work Phone: Clinical Notes 07-07-2022 to 12-28-2022 Note Date & Type Note Facility 12-28-2022 Evaluation note Encounter Date Diagnosis Assessment Notes Dec, Pneumonia of right lower lobe due to infectious organism (ICD-10 - J18.9) Dec, History of pneumothorax (ICD-10 - Z87.09) Dec, Tobacco use disorder (ICD-10 - F17.200) [facility] [employer] [facility] Other 05-15-2023 Progress note Author Ismael Huitron [facility] November 21, 2022 11:17am Note Date/Time November 21, 2022 11:17 am [facility] [address] [place] [address] Pulmonology Progress Note Signed Patient: Lori Anton MR#: [id number] : 1965 Acct:[id number] Age/Sex: 57 / M Adm Date: 3 Loc: Room: [address] [place] [address] Type: ADM IN Attending Dr: Rubi Ramos MD Copies to: ~ Date of Service: 11/21/2022 Subjective Subjective Narrative: Patient is continuing to improve, doing much better today, remains on room air with excellent oxygenation his pulse oximetry now is 96%. Afebrile with stable hemodynamic status, continued improvement in his strength mobility and activity level. White count is now normalized completely. Kidney functions electrolytesand other blood work remain unremarkable. Exam Physical Exam Vital Signs: Temp Pulse Resp BP Pulse Ox O2 Del Method O2 Flow Rate 98.0 F 77 18 134/82 96 Room Air 1 11/21/22 08:43 11/21/22 08:43 11/21/22 08:43 11/21/22 08:43 11/21/22 08:43 11/21/22 08:44 11/20/22 07:40 FiO2 40 11/18/22 09:00 Narrative: General: Patient is fully alert, awake, sitting upright in a chair appears in nodistress Eyes: Pupils equal round reactive to light HEENT: Normocephalic, atraumatic, oral mucosa moist Neck: Supple no lymphadenopathy or thyromegaly Cardiovascular: S1, S2, normal sounds, no murmurs or gallops noted, regular rhythm Lungs: Adequate breath sounds yet still decreased more on the right than the left Extremities: No significant peripheral edema, peripheral pulses adequate Neurologic: Alert, awake, responds appropriately, oriented to time and place, generalized weakness but no lateralization Objective Intake and Output I&O - Last 24 Hours: Intake & Output 11/20/22 11/21/22 11/21/22 23:59 07:59 15:59 Intake Total 450 / 2000 Balance 450 / 2000 Weight 97.1 kg Labs 11/21/22 04:15 11/21/22 04:15 Microbiology Micro: Microbiology 11/16/22 10:38 Blood Culture - Final Blood - Right Antecubital NO GROWTH 5 DAYS 11/16/22 10:22 Blood Culture - Final Blood - Port NO GROWTH 5 DAYS 11/17/22 09:59 Blood Culture - Preliminary Blood - Right Antecubital No Growth 4 Days 11/17/22 10:00 Blood Culture - Preliminary Blood - Right Antecubital No Growth 4 Days Assessment/Plan Assessment/Plan (1) Acute hypoxemic respiratory failure: (2) Tension pneumothorax: (3) Hilar lymphadenopathy: (4) Atelectasis: (5) Community acquired pneumonia: (6) Nicotine dependence: Plan * Discussed this case with Dr. Holt, he is switching antibiotics to oral linezolid * Patient can be discharged today from my standpoint * Follow-up chest x-ray in 4 weeks * I will see him for follow-up after that Documented By: Ismael Huitron MD 11/21/22 9739 Signed By: <Electronically signed by Ismael Huitron MD> 11/21/22 1117 [facility] Work Phone: 1(295) 600-660705-15-2023 Progress note Author Sanjay Holt [facility] November 21, 2022 9:14am Note Date/Time November 21, 2022 9:15a m [facility] [address] [place] [address] Infect. Disease Progress Note Signed Patient: Lori Anton MR#: [id number] : 1965 Acct:[id number] Age/Sex: 57 / M Adm Date: 3 Loc: Room: [address] [place] [address] Type: ADM IN Attending Dr: Rubi Ramos MD Copies to: ~ Date of Service: 11/21/2022 Subjective Interval history: Patient is comfortable this morning. Breathing room air oxygen. Denies cough. States he is having some frequent loose stools but no abdominal cramping. Exam Physical Exam Vital Signs: Temp Pulse Resp BP Pulse Ox O2 Del Method O2 Flow Rate 98.0 F 77 18 134/82 96 Room Air 1 11/21/22 08:43 11/21/22 08:43 11/21/22 08:43 11/21/22 08:43 11/21/22 08:43 11/21/22 08:44 11/20/22 07:40 FiO2 40 11/18/22 09:00 Const General: no acute distress Nutritional Appearance: average body habitus Orientation: awake HEENT Head: normal to inspection Ears: hearing grossly normal bilaterally Teeth and gingiva: poor dentition Eyes General: appearance normal, both eyes and all related structures Neck Neck: normal visual inspection Chest Chest palpation & inspection: normal inspection of the chest Resp Effort & Inspection: normal respiratory effort Auscultation: diminished lung sounds on the right Cardio Palpation: normal PMI Rate: regular rate Rhythm: regular rhythm GI Inspection: normal to inspection Palpation: soft and nontender Auscultation: normal bowel sounds Skin General: no rashes or lesions noted Neuro General: patient alert, patient awake and patient oriented x3 Extrem General: normal to inspection Objective Labs CBC/BMP: CBC, BMP 11/21/22 11/21/22 04:15 04:15 Corrected WBC 7.9 Uncorrected WBC Count 7.9 RBC 2.78 L Hgb 8.4 L Hct 25.0 L Plt Count 486 H Sodium 141 Potassium 3.7 Chloride 105 Carbon Dioxide 31.0 Anion Gap 8.7 BUN 11 Creatinine 0.43 L Calcium 8.1 L Labs: 11/21/22 04:15 BUN 11 Creatinine 0.43 L Microbiology Microbiology: Microbiology - Results from entire visit 11/16/22 10:38 Blood - Right Antecubital Blood Culture - Preliminary No Growth 4 Days 11/16/22 10:22 Blood - Port Blood Culture - Preliminary No Growth 4 Days 11/17/22 09:59 Blood - Right Antecubital Blood Culture - Preliminary No Growth 3 Days 11/17/22 10:00 Blood - Right Antecubital Blood Culture - Preliminary No Growth 3 Days 11/17/22 10:40 Sputum - Endotrachael Aerobic Culture - Final Corynebacterium striatum group 11/17/22 10:40 Sputum - Endotrachael Gram Stain - Final 11/16/22 10:25 Jones Port Urine Culture - Final No Growth 2 Days 11/14/22 14:19 Bronchial Washings - Bilateral Bronchial Culture - Final Corynebacterium striatum group 11/14/22 14:19 Bronchial Washings - Bilateral AFB Smear Concentration - Final 11/14/22 14:19 Bronchial Washings - Bilateral Acid Fast Bacilli Smear - Final 11/10/22 11:00 Blood - Central line Blood Culture - Final NO GROWTH 5 DAYS 11/10/22 10:16 Blood - Left Antecubital Blood Culture - Final NO GROWTH 5 DAYS 11/14/22 14:19 Bronchial Washings - Bilateral Fungal Smear - Final 11/14/22 14:19 Bronchial Washings - Bilateral Gram Stain - Final 11/05/22 05:52 Blood - Right Hand Blood Culture - Final NO GROWTH 5 DAYS 11/05/22 05:52 Blood - Left Antecubital Blood Culture - Final NO GROWTH 5 DAYS 11/05/22 10:30 Sputum - Expectorated Aerobic Culture - Final Lyndsay albicans 11/05/22 10:30 Sputum - Expectorated Gram Stain - Final 11/05/22 09:40 Nasopharyngeal Respiratory Panel (PCR) - Final Allergies and Medications Allergies and Active Meds Allergies erythromycin base Allergy (Verified 11/05/22 04:16) Rash Penicillins Allergy (Verified 11/05/22 04:16) Anaphylaxis Active Medications Acetaminophen (Acetaminophen 500 Mg Tablet) 1,000 mg PO Q6HR PRN PRN Reason: Pain Scale 1 - 3 or fever Stop: 11/05/23 03:35 Last Admin: 11/20/22 06:51 Dose: 1,000 mg Albuterol (Albuterol Neb 2.5 Mg/3 Ml Vial.Neb) 2.5 mg INHALATION QID.RESP PRN PRN Reason: Shortness Of Breath Stop: 11/18/23 09:42 Buprenorphine HCl (Buprenorphine Hcl 2 Mg Tab.Subl) 2 mg SUBLINGUAL BID [facility] Stop: 05/18/23 09:26 Last Admin: 11/20/22 22:02 Dose: 2 mg Docusate Sodium (Docusate 100 Mg Capsule) 100 mg PO BID PRN PRN Reason: Constipation Stop: 11/18/23 10:23 Enoxaparin Sodium (Enoxaparin 40 Mg/0.4 Ml Syringe) 40 mg SUBCUT DAILY@1000 [facility] Stop: 11/06/23 09:59 Last Admin: 11/20/22 09:03 Dose: 40 mg Fluoxetine HCl (Fluoxetine 20 Mg Capsule) 40 mg PO HS [facility] Stop: 11/20/23 21:59 Last Admin: 11/20/22 22:02 Dose: 40 mg Fluoxetine HCl (Fluoxetine 20 Mg Capsule) 20 mg PO DAILY@0600 [facility] Stop: 11/20/23 05:59 Last Admin: 11/21/22 05:46 Dose: 20 mg Heparin Sodium (Porcine) (Heparin-Lock 500 Unit/5 Ml Syringe) 0 unit IV-PUSH QSHIFT [facility] Stop: 11/14/23 21:59 Last Admin: 11/21/22 05:46 Dose: 500 unit Linezolid (Zyvox) 600 mg in 300 mls @ 300 mls/hr IV Q12H [facility] Last Admin: 11/20/22 22:02 Dose: 300 mls/hr Meropenem (Merrem) 1 gm in 100 mls @ 33.333 mls/hr IV Q8H [facility] Last Admin: 11/21/22 03:48 Dose: 33.3 mls/hr Lidocaine HCl (Lidocaine 1% Pf 5 Ml Inj.Zara) 10 ml INFILTRATN ONCE PRN PRN Reason: Pain Metoprolol Tartrate (Metoprolol Tartrate 12.5 Mg Tablet) 12.5 mg PO BID [facility] Stop: 11/18/23 20:59 Last Admin: 11/20/22 22:02 Dose: 12.5 mg Naproxen (Naproxen 500 Mg Tablet) 500 mg PO BID.WITH.MEALS PRN PRN Reason: Pain Stop: 11/18/23 16:47 Last Admin: 11/20/22 08:22 Dose: 500 mg Nicotine (Nicotine Patch 21 Mg/24hr 1 Each Patch.Td24) 1 each TRANSDERML DAILY PRN PRN Reason: Nicotine Cravings Stop: 12/16/22 09:01 Ondansetron HCl (Ondansetron 4 Mg/2 Ml Vial) 4 mg IV-PUSH Q6H PRN PRN Reason: Nausea And Vomiting Stop: 11/20/23 04:16 Last Admin: 11/20/22 04:31 Dose: 4 mg Polyethylene Glycol (Polyethylene Glycol 3350 17 Gm Powd.Pack) 17 gm OG-TUBE DAILY PRN PRN Reason: Constipation Stop: 11/14/23 08:52 Last Admin: 11/16/22 21:13 Dose: 17 gm Potassium Chloride (Potassium Chloride Er 20 Meq Tab.Er.Prt) 40 meq PO DAILY PRN PRN Reason: Hypokalemia Stop: 11/20/23 11:57 Last Admin: 11/20/22 14:59 Dose: 40 meq Potassium Chloride (Potassium Chloride Er 20 Meq Tab.Er.Prt) 20 meq PO DAILY PRN PRN Reason: Hypokalemia Stop: 11/20/23 11:57 Sennosides (Sennosides 8.6 Mg Tablet) 1 tab PO BID PRN PRN Reason: Constipation Stop: 11/18/23 10:23 Sodium Chloride (Sodium Chloride 0.9 % 10 Ml Syringe) 0 ml IV-PUSH QSHIFT SHANE Stop: 11/05/23 05:59 Last Admin: 11/21/22 05:46 Dose: 30 ml Sodium Chloride (Sodium Chloride 0.9 % 10 Ml Syringe) 0 ml IV-PUSH PRN PRN PRN Reason: Flush Stop: 11/14/23 15:02 Last Admin: 11/20/22 20:04 Dose: 10 ml Tizanidine HCl (Tizanidine 4 Mg Tablet) 4 mg PO BID@0900,1400 PRN PRN Reason: Muscle Spasm Stop: 11/05/23 06:39 Last Admin: 11/19/22 09:07 Dose: 4 mg Tizanidine HCl (Tizanidine 4 Mg Tablet) 8 mg PO HS PRN PRN Reason: Muscle Spasm Stop: 11/05/23 07:18 Last Admin: 11/19/22 21:12 Dose: 8 mg Tizanidine HCl (Tizanidine 4 Mg Tablet) 8 mg PO QHS PRN PRN Reason: Muscle Spasm Stop: 11/19/23 18:21 A&P - Infectious Disease Assessment/Plan (1) Acute hypoxemic respiratory failure: Code(s): J96.01 - Acute respiratory failure with hypoxia Status: Acute (2) Parainfluenza: Code(s): B34.8 - Other viral infections of unspecified site Status: Acute (3) Community acquired pneumonia: Code(s): J18.9 - Pneumonia, unspecified organism Status: Acute Plan Patient is doing extremely well for the last couple days. No fevers or leukocytosis. Breathing is comfortable. No specific bacteria aside from corynebacterium stratum isolated after bronc. Remains on linezolid and meropenem. Given patient's eagerness to go home and how he has been doing patient can be transition to oral antibiotics. As documented he has anaphylaxisto penicillin but he specifically told me he develops a rash after taking Augmentin for a couple days. Given the lack of organisms isolated suggested that he would need penicillin in general will choose simply Linezolid for ongoing treatment for another 7 days Documented By: Sanjay Holt MD 11/21/2209 Signed By: <Electronically signed by MD Sanjay Holt> 11/21/2214 [facility] Work Phone: [phone]) 759-516905-14-2023 Progress note Author Shant Villegas [facility] November 20, 2022 3:35pm Note Date/Time November 20, 2022 3:35p m [facility] [address] [place] [address] Hospitalist Progress Note Signed Patient: Lori Anton MR#: [id number] : 1965 Acct:[id number] Age/Sex: 57 / M Adm Date: 3 Loc: Room: 6S2399-5 Type: ADM IN Attending Dr: Shant Villegas MD Copies to: ~ Date of Service: 11/20/2022 Subjective Subjective Narrative: Patient has been transferred to stepdown unit due to improvement in symptoms. Currently on room air with no signs of respiratory distress. He denies having excessive cough. He did mention not able to sleep last night despite getting melatonin. Assessment And Plan 57M with PMH of HTN, DJD, Tobacco abuse, Depression who p/w ever, cough, and right-sided chest pain to the [facility] ED and Transferred for the evaluation and treatment of Bacterial pneumonia Bacterial pneumonia/Parainfluenza Infection Improved and patient currently on linezolid and meropenem as per ID. Urine culture growing Corynebacterium with no growth on bronchial washing. Leukocytosis has resolved. Acute respiratory failure with hypercapnia Resolved. Continue PT/OT. Right pneumothorax Chest tube has been removed. No signs of respiratory distress. Insomnia Trazodone for insomnia. Replace potassium and magnesium. Exam Physical Exam Vital Signs: Temp Pulse Resp BP Pulse Ox O2 Del Method O2 Flow Rate 97.9 F 72 16 125/68 94 L Room Air 1 11/20/22 14:59 11/20/22 14:59 11/20/22 14:59 11/20/22 14:59 11/20/22 14:59 11/20/22 14:59 11/20/22 07:40 FiO2 40 11/18/22 09:00 Const Orientation: alert, awake and oriented x3 Resp Effort & Inspection: normal respiratory effort and able to speak in complete sentences Auscultation: no rales, no rhonchi and no wheezes Cardio Rate: regular rate Rhythm: regular rhythm Heart Sounds: S1 normal and S2 normal GI Palpation: soft, not firm, no guarding and nontender Auscultation: normal bowel sounds Neuro General: patient alert, patient awake, patient oriented x3, moves all extremities and no focal motor deficits Cranial Nerves: CN's II-XII intact bilaterally Cognition: normal cognition Speech: speech normal Motor: muscle tone normal throughout and strength 5/5 throughout Sensory Exam: no sensory deficits noted Extrem General: no clubbing, cyanosis or edema and no calf tenderness Objective Lab Results 11/20/22 04:05 11/20/22 04:05 Microbiology Results Microbiology 11/16/22 10:38 Blood - Right Antecubital Blood Culture - Preliminary No Growth 4 Days 11/16/22 10:22 Blood - Port Blood Culture - Preliminary No Growth 4 Days 11/17/22 09:59 Blood - Right Antecubital Blood Culture - Preliminary No Growth 3 Days 11/17/22 10:00 Blood - Right Antecubital Blood Culture - Preliminary No Growth 3 Days Meds Allergies and Active Meds Allergies erythromycin base Allergy (Verified 11/05/22 04:16) Rash Penicillins Allergy (Verified 11/05/22 04:16) Anaphylaxis Active Meds: Active Medications Generic Name Dose Route Start Last Admin Trade Name Freq PRN Reason Stop Dose Admin Acetaminophen 1,000 mg 11/05/22 03:36 11/20/22 06:51 Acetaminophen 500 Mg Tablet PO 11/05/23 03:35 1,000 mg Q6HR PRN Administration Pain Scale 1 - 3 or fever Albuterol 2.5 mg 11/19/22 10:15 Albuterol Neb 2.5 Mg/3 Ml Vial.Neb INHALATION 11/18/23 09:42 QID.RESP PRN Shortness Of Breath Buprenorphine HCl 2 mg 11/19/22 09:27 11/20/22 08:23 Buprenorphine Hcl 2 Mg Tab.Subl SUBLINGUAL 05/18/23 09:26 2 mg BID SHANE Administration Docusate Sodium 100 mg 11/18/22 10:24 Docusate 100 Mg Capsule PO 11/18/23 10:23 BID PRN Constipation Enoxaparin Sodium 40 mg 11/06/22 10:00 11/20/22 09:03 Enoxaparin 40 Mg/0.4 Ml Syringe SUBCUT 11/06/23 09:59 40 mg DAILY@1000 SHANE Administration Fluoxetine HCl 40 mg 11/20/22 22:00 Fluoxetine 20 Mg Capsule PO 11/20/23 21:59 HS SHANE Fluoxetine HCl 20 mg 11/20/22 06:00 11/20/22 06:04 Fluoxetine 20 Mg Capsule PO 11/20/23 05:59 20 mg DAILY@0600 SHANE Administration Heparin Sodium (Porcine) 0 unit 11/14/22 22:00 11/20/22 13:34 Heparin-Lock 500 Unit/5 Ml Syringe IV-PUSH 11/14/23 21:59 10 unit QSHIFT SHANE Administration Linezolid 600 mg in 300 mls @ 300 mls/hr 11/17/22 11:00 11/20/22 10:15 Zyvox IV 300 mls/hr Q12H SHANE Administration Meropenem 1 gm in 100 mls @ 33.333 mls/hr 11/17/22 18:00 11/20/22 09:03 Merrem IV 33.33 mls/hr Q8H SHANE Administration Lidocaine HCl 10 ml 11/09/22 13:55 Lidocaine 1% Pf 5 Ml Inj.Zara INFILTRATN ONCE PRN Pain Metoprolol Tartrate 12.5 mg 11/18/22 21:00 11/20/22 08:22 Metoprolol Tartrate 12.5 Mg Tablet PO 11/18/23 20:59 12.5 mg BID SHANE Administration Naproxen 500 mg 11/18/22 16:48 11/20/22 08:22 Naproxen 500 Mg Tablet PO 11/18/23 16:47 500 mg BID.WITH.MEALS PRN Administration Pain Nicotine 1 each 11/05/22 04:33 Nicotine Patch 21 Mg/24hr 1 Each Patch.Td24 TRANSDERML 12/16/22 09:01 DAILY PRN Nicotine Cravings Ondansetron HCl 4 mg 11/20/22 04:17 11/20/22 04:31 Ondansetron 4 Mg/2 Ml Vial IV-PUSH 11/20/23 04:16 4 mg Q6H PRN Administration Nausea And Vomiting Polyethylene Glycol 17 gm 11/14/22 08:53 11/16/22 21:13 Polyethylene Glycol 3350 17 Gm Powd.Pack OG-TUBE 11/14/23 08:52 17 gm DAILY PRN Administration Constipation Potassium Chloride 40 meq 11/20/22 11:58 11/20/22 14:59 Potassium Chloride Er 20 Meq Tab.Er.Prt PO 11/20/23 11:57 40 meq DAILY PRN Administration Hypokalemia Potassium Chloride 20 meq 11/20/22 11:58 Potassium Chloride Er 20 Meq Tab.Er.Prt PO 11/20/23 11:57 DAILY PRN Hypokalemia Sennosides 1 tab 11/18/22 10:24 Sennosides 8.6 Mg Tablet PO 11/18/23 10:23 BID PRN Constipation Sodium Chloride 0 ml 11/05/22 06:00 11/20/22 13:34 Sodium Chloride 0.9 % 10 Ml Syringe IV-PUSH 11/05/23 05:59 10 ml QSHIFT SHANE Administration Sodium Chloride 0 ml 11/14/22 15:03 11/20/22 08:23 Sodium Chloride 0.9 % 10 Ml Syringe IV-PUSH 11/14/23 15:02 10 ml PRN PRN Administration Flush Tizanidine HCl 4 mg 11/05/22 06:40 11/19/22 09:07 Tizanidine 4 Mg Tablet PO 11/05/23 06:39 4 mg BID@0900,1400 PRN Administration Muscle Spasm Tizanidine HCl 8 mg 11/05/22 07:19 11/19/22 21:12 Tizanidine 4 Mg Tablet PO 11/05/23 07:18 8 mg HS PRN Administration Muscle Spasm Tizanidine HCl 8 mg 11/19/22 18:22 Tizanidine 4 Mg Tablet PO 11/19/23 18:21 QHS PRN Muscle Spasm Trazodone HCl 100 mg 11/20/22 21:00 Trazodone 100 Mg Tablet PO 11/20/22 21:01 QHS ONE A&P - Hospitalist Assessment/Plan (1) Community acquired pneumonia: (2) HTN (hypertension): (3) Acute hypoxemic respiratory failure: (4) Parainfluenza: Plan . Documented By: Shant Villegas MD 11/20/221531 Signed By: <Electronically signed by Shant Villegas MD> 11/20/22 1535 [facility] Work Phone: 1(331) 866-458105-14-2023 Progress note Author Ismael Huitron [facility] November 20, 2022 1:40pm Note Date/Time November 20, 2022 1:40p m [facility] [address] [place] [address] Pulmonology Progress Note Signed Patient: Lori Anton MR#: [id number] : 1965 Acct:[id number] Age/Sex: 57 / M Adm Date: 3 Loc: 4 Room: [address] [place] [address] Type: ADM IN Attending Dr: Shant Villegas MD Copies to: ~ Date of Service: 11/20/2022 Subjective Subjective Narrative: Patient is continuing to improve today, he is transferred to , currently on room air with adequate oxygenation afebrile with stable hemodynamic status. White count is normal now at 10 kidney functions remain normal, mildly hypokalemic magnesium is mildly decreased as well, chest x-ray showed significant improvement in his consolidative changes, with no significant effusions or pneumothorax, right diaphragm appears elevated, residual areas of consolidations/scarring noted Exam Physical Exam Vital Signs: Temp Pulse Resp BP Pulse Ox O2 Del Method O2 Flow Rate 98.0 F 68 20 137/86 92 L Room Air 1 11/20/22 12:00 11/20/22 12:00 11/20/22 12:00 11/20/22 12:00 11/20/22 12:00 11/20/22 12:00 11/20/22 07:40 FiO2 40 11/18/22 09:00 Narrative: General: Patient is fully alert, awake, sitting upright in a chair appears in nodistress Eyes: Pupils equal round reactive to light HEENT: Normocephalic, atraumatic, oral mucosa moist Neck: Supple no lymphadenopathy or thyromegaly Cardiovascular: S1, S2, normal sounds, no murmurs or gallops noted, regular rhythm Lungs: Adequate breath sounds yet still decreased more on the right than the left Extremities: No significant peripheral edema, peripheral pulses adequate Neurologic: Alert, awake, responds appropriately, oriented to time and place, generalized weakness but no lateralization Objective Intake and Output I&O - Last 24 Hours: Intake & Output 11/19/22 11/20/22 11/20/22 23:59 07:59 15:59 Intake Total 350 / 1400 650 / 650 Balance 350 / -470 650 / 650 Weight 96.8 kg Labs 11/20/22 04:05 11/20/22 04:05 Microbiology Micro: Microbiology 11/16/22 10:38 Blood Culture - Preliminary Blood - Right Antecubital No Growth 4 Days 11/16/22 10:22 Blood Culture - Preliminary Blood - Port No Growth 4 Days 11/17/22 09:59 Blood Culture - Preliminary Blood - Right Antecubital No Growth 3 Days 11/17/22 10:00 Blood Culture - Preliminary Blood - Right Antecubital No Growth 3 Days Assessment/Plan Assessment/Plan (1) Acute hypoxemic respiratory failure: (2) Tension pneumothorax: (3) Hilar lymphadenopathy: (4) Atelectasis: (5) Community acquired pneumonia: (6) Nicotine dependence: Plan * Continue current management and course of IV antibiotics to completion per infectious disease recommendation * PT/OT, increase activity as tolerated * Discharge planning Documented By: Ismael Huitron MD 11/20/22 2833 Signed By: <Electronically signed by Ismael Huitron MD> 11/20/22 1340 [facility] Work Phone: 1(997) 552-677005-14-2023 Progress note Author Sanjay Holt [facility] November 20, 2022 9:05am Note Date/Time November 20, 2022 9:05a m [facility] [address] [place] [address] Infect. Disease Progress Note Signed Patient: Lori Anton MR#: [id number] : 1965 Acct:[id number] Age/Sex: 57 / M Adm Date: 3 Loc: Room: [address] [place] [address] Type: ADM IN Attending Dr: Shant Villegas MD Copies to: ~ Date of Service: 11/20/2022 Subjective Interval history: Patient now on 4P. Chest tube was removed yesterday. Doing a lot better clinically today. His biggest complaint is about the food and how it does not taste good. Breathing is comfortable. Off oxygen. Exam Physical Exam Vital Signs: Temp Pulse Resp BP Pulse Ox O2 Del Method O2 Flow Rate 97.8 F 88 18 152/80 H 96 Nasal Cannula 1 11/20/22 07:40 11/20/22 07:40 11/20/22 07:40 11/20/22 07:40 11/20/22 07:40 11/20/22 07:40 11/20/22 07:40 FiO2 40 11/18/22 09:00 Const General: no acute distress Nutritional Appearance: average body habitus Orientation: awake HEENT Head: normal to inspection Ears: hearing grossly normal bilaterally Teeth and gingiva: poor dentition Eyes General: appearance normal, both eyes and all related structures Neck Neck: normal visual inspection Chest Chest palpation & inspection: abnormal inspection of the chest (R sided chest tube) Resp Auscultation: diminished lung sounds Cardio Palpation: normal PMI Rate: regular rate Rhythm: regular rhythm GI Inspection: normal to inspection Palpation: soft and nontender Auscultation: normal bowel sounds Neuro General: patient alert, patient awake and patient oriented x3 Extrem General: normal to inspection Objective Labs CBC/BMP: CBC, BMP 11/20/22 11/20/22 04:05 04:05 Corrected WBC 10.0 Uncorrected WBC Count 10.0 RBC 3.31 L Hgb 9.8 L Hct 29.6 L Plt Count 434 Sodium 139 Potassium 3.4 L Chloride 100 Carbon Dioxide 31.8 H Anion Gap 10.6 BUN 13 Creatinine 0.35 L Calcium 8.2 L Labs: 11/20/22 04:05 BUN 13 Creatinine 0.35 L Microbiology Microbiology: Microbiology - Results from entire visit 11/16/22 10:38 Blood - Right Antecubital Blood Culture - Preliminary No Growth 3 Days 11/16/22 10:22 Blood - Port Blood Culture - Preliminary No Growth 3 Days 11/17/22 09:59 Blood - Right Antecubital Blood Culture - Preliminary No Growth 2 Days 11/17/22 10:00 Blood - Right Antecubital Blood Culture - Preliminary No Growth 2 Days 11/17/22 10:40 Sputum - Endotrachael Aerobic Culture - Final Corynebacterium striatum group 11/17/22 10:40 Sputum - Endotrachael Gram Stain - Final 11/16/22 10:25 Jones Port Urine Culture - Final No Growth 2 Days 11/14/22 14:19 Bronchial Washings - Bilateral Bronchial Culture - Final Corynebacterium striatum group 11/14/22 14:19 Bronchial Washings - Bilateral AFB Smear Concentration - Final 11/14/22 14:19 Bronchial Washings - Bilateral Acid Fast Bacilli Smear - Final 11/10/22 11:00 Blood - Central line Blood Culture - Final NO GROWTH 5 DAYS 11/10/22 10:16 Blood - Left Antecubital Blood Culture - Final NO GROWTH 5 DAYS 11/14/22 14:19 Bronchial Washings - Bilateral Fungal Smear - Final 11/14/22 14:19 Bronchial Washings - Bilateral Gram Stain - Final 11/05/22 05:52 Blood - Right Hand Blood Culture - Final NO GROWTH 5 DAYS 11/05/22 05:52 Blood - Left Antecubital Blood Culture - Final NO GROWTH 5 DAYS 11/05/22 10:30 Sputum - Expectorated Aerobic Culture - Final Lyndsay albicans 11/05/22 10:30 Sputum - Expectorated Gram Stain - Final 11/05/22 09:40 Nasopharyngeal Respiratory Panel (PCR) - Final Allergies and Medications Allergies and Active Meds Allergies erythromycin base Allergy (Verified 11/05/22 04:16) Rash Penicillins Allergy (Verified 11/05/22 04:16) Anaphylaxis Active Medications Acetaminophen (Acetaminophen 500 Mg Tablet) 1,000 mg PO Q6HR PRN PRN Reason: Pain Scale 1 - 3 or fever Stop: 11/05/23 03:35 Last Admin: 11/20/22 06:51 Dose: 1,000 mg Albuterol (Albuterol Neb 2.5 Mg/3 Ml Vial.Neb) 2.5 mg INHALATION QID.RESP PRN PRN Reason: Shortness Of Breath Stop: 11/18/23 09:42 Buprenorphine HCl (Buprenorphine Hcl 2 Mg Tab.Subl) 2 mg SUBLINGUAL BID [facility] Stop: 05/18/23 09:26 Last Admin: 11/20/22 08:23 Dose: 2 mg Docusate Sodium (Docusate 100 Mg Capsule) 100 mg PO BID PRN PRN Reason: Constipation Stop: 11/18/23 10:23 Enoxaparin Sodium (Enoxaparin 40 Mg/0.4 Ml Syringe) 40 mg SUBCUT DAILY@1000 [facility] Stop: 11/06/23 09:59 Last Admin: 11/19/22 09:06 Dose: 40 mg Fluoxetine HCl (Fluoxetine 20 Mg Capsule) 40 mg PO HS [facility] Stop: 11/20/23 21:59 Fluoxetine HCl (Fluoxetine 20 Mg Capsule) 20 mg PO DAILY@0600 [facility] Stop: 11/20/23 05:59 Last Admin: 11/20/22 06:04 Dose: 20 mg Heparin Sodium (Porcine) (Heparin-Lock 500 Unit/5 Ml Syringe) 0 unit IV-PUSH QSHIFT [facility] Stop: 11/14/23 21:59 Last Admin: 11/20/22 06:04 Dose: 2,000 unit Linezolid (Zyvox) 600 mg in 300 mls @ 300 mls/hr IV Q12H [facility] Last Admin: 11/20/22 00:33 Dose: 300 mls/hr Meropenem (Merrem) 1 gm in 100 mls @ 33.333 mls/hr IV Q8H [facility] Last Admin: 11/20/22 03:00 Dose: 33.33 mls/hr Lidocaine HCl (Lidocaine 1% Pf 5 Ml Inj.Zara) 10 ml INFILTRATN ONCE PRN PRN Reason: Pain Melatonin (Melatonin 5 Mg Tablet) 5 mg PO QHS [facility] Stop: 11/19/23 21:59 Last Admin: 11/19/22 21:12 Dose: 5 mg Metoprolol Tartrate (Metoprolol Tartrate 12.5 Mg Tablet) 12.5 mg PO BID [facility] Stop: 11/18/23 20:59 Last Admin: 11/20/22 08:22 Dose: 12.5 mg Naproxen (Naproxen 500 Mg Tablet) 500 mg PO BID.WITH.MEALS PRN PRN Reason: Pain Stop: 11/18/23 16:47 Last Admin: 11/20/22 08:22 Dose: 500 mg Nicotine (Nicotine Patch 21 Mg/24hr 1 Each Patch.Td24) 1 each TRANSDERML DAILY PRN PRN Reason: Nicotine Cravings Stop: 12/16/22 09:01 Ondansetron HCl (Ondansetron 4 Mg/2 Ml Vial) 4 mg IV-PUSH Q6H PRN PRN Reason: Nausea And Vomiting Stop: 11/20/23 04:16 Last Admin: 11/20/22 04:31 Dose: 4 mg Polyethylene Glycol (Polyethylene Glycol 3350 17 Gm Powd.Pack) 17 gm OG-TUBE DAILY PRN PRN Reason: Constipation Stop: 11/14/23 08:52 Last Admin: 11/16/22 21:13 Dose: 17 gm Sennosides (Sennosides 8.6 Mg Tablet) 1 tab PO BID PRN PRN Reason: Constipation Stop: 11/18/23 10:23 Sodium Chloride (Sodium Chloride 0.9 % 10 Ml Syringe) 0 ml IV-PUSH QSHIFT [facility] Stop: 11/05/23 05:59 Last Admin: 11/20/22 06:04 Dose: 10 ml Sodium Chloride (Sodium Chloride 0.9 % 10 Ml Syringe) 0 ml IV-PUSH PRN PRN PRN Reason: Flush Stop: 11/14/23 15:02 Last Admin: 11/20/22 08:23 Dose: 10 ml Tizanidine HCl (Tizanidine 4 Mg Tablet) 4 mg PO BID@0900,1400 PRN PRN Reason: Muscle Spasm Stop: 11/05/23 06:39 Last Admin: 11/19/22 09:07 Dose: 4 mg Tizanidine HCl (Tizanidine 4 Mg Tablet) 8 mg PO HS PRN PRN Reason: Muscle Spasm Stop: 11/05/23 07:18 Last Admin: 11/19/22 21:12 Dose: 8 mg Tizanidine HCl (Tizanidine 4 Mg Tablet) 8 mg PO QHS PRN PRN Reason: Muscle Spasm Stop: 11/19/23 18:21 A&P - Infectious Disease Assessment/Plan (1) Fever: Code(s): R50.9 - Fever, unspecified Status: Acute (2) Acute hypoxemic respiratory failure: Code(s): J96.01 - Acute respiratory failure with hypoxia Status: Acute (3) Parainfluenza: Code(s): B34.8 - Other viral infections of unspecified site Status: Acute (4) Community acquired pneumonia: Code(s): J18.9 - Pneumonia, unspecified organism Status: Acute Plan Fever curve remains improved. White count is normal. Chest tube out. Patient on 4P. Favor finish 7 days of his current antibiotic regimen of Linezolid and meropenem. Documented By: Sanjay Holt MD 11/20/22901 Signed By: <Electronically signed by MD Sanjay Holt> 11/20/22904 [facility] Work Phone: [phone] Progress note Author Shant Villegas [facility] November 19, 2022 1:31pm Note Date/Time November 19, 2022 1:31p m [facility] [address] [place] [address] Hospitalist Progress Note Signed Patient: Lori Anton MR#: [id number] : 1965 Acct:[id number] Age/Sex: 57 / M Adm Date: 3 Loc: Room: [address] [place] [address] Type: ADM IN Attending Dr: Shant Villegas MD Copies to: ~ Date of Service: 11/19/2022 Subjective Subjective Narrative: Patient examined while sitting on chair with his present in the room. On 3and half liters oxygen with no signs of respiratory distress. He denies having excessive cough. He did not sleep much last night and requesting something to help sleep. Chest tube has been replaced and cleared by pulmonary service to bedischarged out of ICU. Later Case was discussed with his daughter who mentionedshe has been diagnosed with hypertrophic cardiomyopathy concerned about his father having similar diagnosis. Patient did have echocardiogram done few days back which showed normal LV function without any signs of cardiomyopathy. Assessment And Plan 57M with PMH of HTN, DJD, Tobacco abuse, Depression who p/w ever, cough, and right-sided chest pain to the [facility] ED and Transferred for the evaluation and treatment of Bacterial pneumonia Bacterial pneumonia/Parainfluenza Infection Afebrile since yesterday with WBC count trending down. Patient on linezolid andmeropenem as recommended by infectious disease. Acute respiratory failure with hypercapnia Currently on 3.5 L oxygen. Taper oxygen as tolerated.. Continue PT/OT. Right pneumothorax Chest tube has been replaced Replace potassium and magnesium. Patient will be transferred to stepdown unit. Discontinue Jones catheter. Exam Physical Exam Vital Signs: Temp Pulse Resp BP Pulse Ox O2 Del Method O2 Flow Rate 98.5 F 77 22 97/64 L 98 Nasal Cannula 3.5 11/19/22 08:00 11/19/22 11:00 11/19/22 11:00 11/19/22 11:00 11/19/22 11:00 11/19/22 11:00 11/19/22 11:00 FiO2 40 11/18/22 09:00 Const Orientation: alert, awake and oriented x3 Resp Effort & Inspection: normal respiratory effort and able to speak in complete sentences Auscultation: no rales, no rhonchi and no wheezes Cardio Rate: regular rate Rhythm: regular rhythm Heart Sounds: S1 normal and S2 normal GI Inspection: non-distended Palpation: soft, not firm, no guarding and nontender Neuro General: patient alert, patient awake, patient oriented x3, moves all extremities and no focal motor deficits Cranial Nerves: CN's II-XII intact bilaterally Cognition: normal cognition Speech: speech normal Extrem General: no clubbing, cyanosis or edema and no calf tenderness Objective Lab Results 11/19/22 05:10 11/19/22 05:10 Microbiology Results Microbiology 11/16/22 10:38 Blood - Right Antecubital Blood Culture - Preliminary No Growth 3 Days 11/16/22 10:22 Blood - Port Blood Culture - Preliminary No Growth 3 Days 11/17/22 09:59 Blood - Right Antecubital Blood Culture - Preliminary No Growth 2 Days 11/17/22 10:00 Blood - Right Antecubital Blood Culture - Preliminary No Growth 2 Days 11/17/22 10:40 Sputum - Endotrachael Aerobic Culture - Final Corynebacterium striatum group 11/17/22 10:40 Sputum - Endotrachael Gram Stain - Final 11/16/22 10:25 Jones Port Urine Culture - Final No Growth 2 Days Meds Allergies and Active Meds Allergies erythromycin base Allergy (Verified 11/05/22 04:16) Rash Penicillins Allergy (Verified 11/05/22 04:16) Anaphylaxis Active Meds: Active Medications Generic Name Dose Route Start Last Admin Trade Name Freq PRN Reason Stop Dose Admin Acetaminophen 1,000 mg 11/05/22 03:36 11/19/22 05:15 Acetaminophen 500 Mg Tablet PO 11/05/23 03:35 1,000 mg Q6HR PRN Administration Pain Scale 1 - 3 or fever Albuterol 2.5 mg 11/19/22 10:15 Albuterol Neb 2.5 Mg/3 Ml Vial.Neb INHALATION 11/18/23 09:42 QID.RESP PRN Shortness Of Breath Alprazolam 0.25 mg 11/19/22 02:28 11/19/22 09:07 Alprazolam 0.25 Mg Tablet PO 05/18/23 02:27 0.25 mg Q6H PRN Administration Sleep Buprenorphine HCl 2 mg 11/19/22 09:27 11/19/22 09:33 Buprenorphine Hcl 2 Mg Tab.Subl SUBLINGUAL 05/18/23 09:26 2 mg BID SHANE Administration Docusate Sodium 100 mg 11/18/22 10:24 Docusate 100 Mg Capsule PO 11/18/23 10:23 BID PRN Constipation Enoxaparin Sodium 40 mg 11/06/22 10:00 11/19/22 09:06 Enoxaparin 40 Mg/0.4 Ml Syringe SUBCUT 11/06/23 09:59 40 mg DAILY@1000 SHANE Administration Fluoxetine HCl 40 mg 11/07/22 22:00 11/16/22 21:14 Fluoxetine Soln 20 Mg/5 Ml PO 11/07/23 21:59 40 mg HS SHANE Administration Fluoxetine HCl 20 mg 11/08/22 06:00 11/17/22 05:13 Fluoxetine Soln 20 Mg/5 Ml PO 11/08/23 05:59 20 mg DAILY@0600 SHANE Administration Heparin Sodium (Porcine) 0 unit 11/14/22 22:00 11/19/22 06:42 Heparin-Lock 500 Unit/5 Ml Syringe IV-PUSH 11/14/23 21:59 500 unit QSHIFT SHANE Administration Hydromorphone HCl 1 mg 11/18/22 12:08 11/19/22 09:44 Hydromorphone 1 Mg/Ml Syringe IV-PUSH 1 mg Q4H PRN Administration Pain Linezolid 600 mg in 300 mls @ 300 mls/hr 11/17/22 11:00 11/19/22 12:09 Zyvox IV 300 mls/hr Q12H SHANE Administration Meropenem 1 gm in 100 mls @ 33.333 mls/hr 11/17/22 18:00 11/19/22 09:07 Merrem IV 33.33 mls/hr Q8H SHANE Administration Lidocaine HCl 10 ml 11/09/22 13:55 Lidocaine 1% Pf 5 Ml Inj.Zara INFILTRATN ONCE PRN Pain Magnesium Hydroxide 30 ml 11/07/22 07:45 11/16/22 08:46 Magnesium Hydroxide Susp 30 Ml Udc PO 11/07/23 07:44 30 ml DAILY PRN Administration Constipation Metoprolol Tartrate 12.5 mg 11/18/22 21:00 11/19/22 09:07 Metoprolol Tartrate 12.5 Mg Tablet PO 11/18/23 20:59 12.5 mg BID SHANE Administration Naproxen 500 mg 11/18/22 16:48 11/19/22 09:06 Naproxen 500 Mg Tablet PO 11/18/23 16:47 500 mg BID.WITH.MEALS PRN Administration Pain Nicotine 1 each 11/05/22 04:33 Nicotine Patch 21 Mg/24hr 1 Each Patch.Td24 TRANSDERML 12/16/22 09:01 DAILY PRN Nicotine Cravings Pantoprazole Sodium 40 mg 11/08/22 09:00 11/19/22 09:06 Pantoprazole 40 Mg Vial IV-PUSH 11/08/23 08:59 40 mg DAILY SHANE Administration Polyethylene Glycol 17 gm 11/14/22 08:53 11/16/22 21:13 Polyethylene Glycol 3350 17 Gm Powd.Pack OG-TUBE 11/14/23 08:52 17 gm DAILY PRN Administration Constipation Sennosides 1 tab 11/18/22 10:24 Sennosides 8.6 Mg Tablet PO 11/18/23 10:23 BID PRN Constipation Sodium Chloride 0 ml 11/05/22 06:00 11/19/22 06:43 Sodium Chloride 0.9 % 10 Ml Syringe IV-PUSH 11/05/23 05:59 10 ml QSHIFT SHANE Administration Sodium Chloride 10 ml 11/07/22 08:38 11/15/22 08:11 Sodium Chloride 0.9 % 10 Ml Syringe IV-PUSH 11/07/23 08:37 10 ml PRN PRN Administration Flush Sodium Chloride 10 ml 11/08/22 09:00 11/19/22 09:06 Sodium Chloride 0.9 % 10 Ml Vial.Pf INJECTION 11/08/23 08:59 10 ml DAILY SHANE Administration Sodium Chloride 0 ml 11/14/22 15:03 11/17/22 13:18 Sodium Chloride 0.9 % 10 Ml Syringe IV-PUSH 11/14/23 15:02 10 ml PRN PRN Administration Flush Tizanidine HCl 4 mg 11/05/22 06:40 11/19/22 09:07 Tizanidine 4 Mg Tablet PO 11/05/23 06:39 4 mg BID@0900,1400 PRN Administration Muscle Spasm Tizanidine HCl 8 mg 11/05/22 07:19 11/18/22 21:44 Tizanidine 4 Mg Tablet PO 11/05/23 07:18 8 mg HS PRN Administration Muscle Spasm A&P - Hospitalist Assessment/Plan (1) Community acquired pneumonia: (2) HTN (hypertension): (3) Acute hypoxemic respiratory failure: (4) Parainfluenza: Plan . Documented By: Shant Villegas MD 11/19/22 1328 Signed By: <Electronically signed by Shant Villegas MD> 11/19/22 1334 [facility] Work Phone: [phone] 199-864105-13-2023 Progress note Author Ismael Huitron [facility] November 19, 2022 12:32pm Note Date/Time November 19, 2022 12:32 pm [facility] [address] [place] [address] Pulmonology Progress Note Signed Patient: Lori Anton MR#: [id number] : 1965 Acct:[id number] Age/Sex: 57 / M Adm Date: 3 Loc: Room: 9C9657-3 Type: ADM IN Attending Dr: Shant Villegas MD Copies to: ~ Date of Service: 11/19/2022 Subjective Subjective Narrative: Patient is doing much better today, sitting upright in a chair fully alert awakeoriented weak but better strength than expected at this stage, was not able to sleep last night, was attributing that to use of bronchodilator treatments, hemodynamically stable, afebrile, oxygenating well on 3 L per nasal cannula. Continued excellent urine output. White cell counts improved to 11.8 and platelet counts, are up a little bit to 451,000. Potassium was low at 3.2 BUN/creatinine are normal mild abnormality in liver functions are generally improved. I removed his chest tube after critical care rounds this morning patient tolerated that well Exam Physical Exam Vital Signs: Temp Pulse Resp BP Pulse Ox O2 Del Method O2 Flow Rate 98.5 F 77 22 97/64 L 98 Nasal Cannula 3.5 11/19/22 08:00 11/19/22 11:00 11/19/22 11:00 11/19/22 11:00 11/19/22 11:00 11/19/22 11:00 11/19/22 11:00 FiO2 40 11/18/22 09:00 Narrative: General: Patient is fully alert, awake, sitting upright in a chair appears in nodistress Eyes: Pupils equal round reactive to light HEENT: Normocephalic, atraumatic, oral mucosa moist Neck: Supple no lymphadenopathy or thyromegaly Cardiovascular: S1, S2, normal sounds, no murmurs or gallops noted, regular rhythm Lungs: Adequate breath sounds yet still decreased more on the right than the left Extremities: No significant peripheral edema, peripheral pulses adequate Neurologic: Alert, awake, responds appropriately, oriented to time and place, generalized weakness but no lateralization Objective Intake and Output I&O - Last 24 Hours: Intake & Output 11/18/22 11/19/22 11/19/22 23:59 07:59 15:59 Intake Total 600 / 2782 100 / 100 Output Total 1415 / 3910 1320 / 1320 0 / 1320 Balance -815 / -1128 -1220 / -1220 0 / -1220 Weight 97.4 kg Labs 11/19/22 05:10 11/19/22 05:10 Microbiology Micro: Microbiology 11/16/22 10:38 Blood Culture - Preliminary Blood - Right Antecubital No Growth 3 Days 11/16/22 10:22 Blood Culture - Preliminary Blood - Port No Growth 3 Days 11/17/22 09:59 Blood Culture - Preliminary Blood - Right Antecubital No Growth 2 Days 11/17/22 10:00 Blood Culture - Preliminary Blood - Right Antecubital No Growth 2 Days 11/17/22 10:40 Aerobic Culture - Final Sputum - Endotrachael Corynebacterium striatum group Gram Stain - Final 11/16/22 10:25 Urine Culture - Final Jones Port No Growth 2 Days Assessment/Plan Assessment/Plan (1) Acute hypoxemic respiratory failure: (2) Tension pneumothorax: (3) Hilar lymphadenopathy: (4) Atelectasis: (5) Community acquired pneumonia: (6) Nicotine dependence: Plan * Right anterior chest tube was removed and wound was dressed with occlusive dressing, to remove sutures in 2 to 3 days * Right lateral chest tube wound was inspected 2 sutures were removed appears intact and healing appropriately * Continue PT/OT and increase activity as tolerated * Encourage p.o. intake * Resume home therapy including Suboxone * Patient can be transferred for PE from my standpoint Documented By: Ismael Huitron MD 11/19/22 1228 Signed By: <Electronically signed by Ismael Huitron MD> 11/19/22 1232 [facility] Work Phone: [phone]) [phone] Progress note Author Sanjay Holt [facility] November 19, 2022 9:45am Note Date/Time November 19, 2022 9:45a m [facility] [address] [place] [address] Infect. Disease Progress Note Signed Patient: Lori Anton MR#: [id number] : 1965 Acct:[id number] Age/Sex: 57 / M Adm Date: 3 Loc: Room: [address] [place] [address] Type: ADM IN Attending Dr: Shant Villegas MD Copies to: ~ Date of Service: 11/19/2022 Subjective Interval history: Sitting up in chair. Exam Physical Exam Vital Signs: Temp Pulse Resp BP Pulse Ox O2 Del Method O2 Flow Rate 98.5 F 97 H 24 123/69 97 Nasal Cannula 3.5 11/19/22 06:30 11/19/22 07:00 11/19/22 07:00 11/19/22 07:00 11/19/22 07:00 11/19/22 08:00 11/19/22 08:00 FiO2 40 11/18/22 09:00 Const General: no acute distress and disheveled Nutritional Appearance: average body habitus Orientation: awake and other (sedated) HEENT Head: normal to inspection Ears: hearing grossly normal bilaterally Eyes General: appearance normal, both eyes and all related structures Neck Neck: normal visual inspection Chest Chest palpation & inspection: abnormal inspection of the chest (R sided chest tube) Resp Auscultation: diminished lung sounds Cardio Palpation: normal PMI Rate: tachycardic Rhythm: regular rhythm GI Inspection: normal to inspection Palpation: soft and nontender Auscultation: normal bowel sounds Skin General: no rashes or lesions noted Neuro General: patient alert and patient awake Extrem General: normal to inspection Objective Labs CBC/BMP: CBC, BMP 11/18/22 11/19/22 11/19/22 05:35 05:10 05:10 Corrected WBC 13.7 H 11.8 H Uncorrected WBC Count 13.7 H 11.8 H RBC 2.90 L 2.92 L Hgb 8.6 L 8.6 L Hct 25.8 L 26.0 L Plt Count 418 451 H Sodium 139 Potassium 3.2 L Chloride 99 Carbon Dioxide 34.0 H Anion Gap 9.2 BUN 11 Creatinine 0.38 L Calcium 8.0 L Labs: 11/19/22 05:10 BUN 11 Creatinine 0.38 L Microbiology Microbiology: Microbiology - Results from entire visit 11/17/22 10:40 Sputum - Endotrachael Aerobic Culture - Final Corynebacterium striatum group 11/17/22 10:40 Sputum - Endotrachael Gram Stain - Final 11/16/22 10:38 Blood - Right Antecubital Blood Culture - Preliminary No Growth 2 Days 11/16/22 10:22 Blood - Port Blood Culture - Preliminary No Growth 2 Days 11/17/22 09:59 Blood - Right Antecubital Blood Culture - Preliminary No Growth 1 Day 11/17/22 10:00 Blood - Right Antecubital Blood Culture - Preliminary No Growth 1 Day 11/16/22 10:25 Jones Port Urine Culture - Final No Growth 2 Days 11/14/22 14:19 Bronchial Washings - Bilateral Bronchial Culture - Final Corynebacterium striatum group 11/14/22 14:19 Bronchial Washings - Bilateral AFB Smear Concentration - Final 11/14/22 14:19 Bronchial Washings - Bilateral Acid Fast Bacilli Smear - Final 11/10/22 11:00 Blood - Central line Blood Culture - Final NO GROWTH 5 DAYS 11/10/22 10:16 Blood - Left Antecubital Blood Culture - Final NO GROWTH 5 DAYS 11/14/22 14:19 Bronchial Washings - Bilateral Fungal Smear - Final 11/14/22 14:19 Bronchial Washings - Bilateral Gram Stain - Final 11/05/22 05:52 Blood - Right Hand Blood Culture - Final NO GROWTH 5 DAYS 11/05/22 05:52 Blood - Left Antecubital Blood Culture - Final NO GROWTH 5 DAYS 11/05/22 10:30 Sputum - Expectorated Aerobic Culture - Final Lyndsay albicans 11/05/22 10:30 Sputum - Expectorated Gram Stain - Final 11/05/22 09:40 Nasopharyngeal Respiratory Panel (PCR) - Final Allergies and Medications Allergies and Active Meds Allergies erythromycin base Allergy (Verified 11/05/22 04:16) Rash Penicillins Allergy (Verified 11/05/22 04:16) Anaphylaxis Active Medications Acetaminophen (Acetaminophen 500 Mg Tablet) 1,000 mg PO Q6HR PRN PRN Reason: Pain Scale 1 - 3 or fever Stop: 11/05/23 03:35 Last Admin: 11/19/22 05:15 Dose: 1,000 mg Albuterol (Albuterol Neb 2.5 Mg/3 Ml Vial.Neb) 2.5 mg INHALATION Q3H PRN PRN Reason: Shortness Of Breath Stop: 11/18/23 09:42 Albuterol/Ipratropium (Ipratropium/Albuterol 0.5-3 Mg 3 Ml Ampul.Neb) 3 ml INHALATION QID.RESP SHANE Stop: 11/18/23 11:59 Last Admin: 11/19/22 08:21 Dose: 3 ml Alprazolam (Alprazolam 0.25 Mg Tablet) 0.25 mg PO Q6H PRN PRN Reason: Sleep Stop: 05/18/23 02:27 Last Admin: 11/19/22 09:07 Dose: 0.25 mg Buprenorphine HCl (Buprenorphine Hcl 2 Mg Tab.Subl) 2 mg SUBLINGUAL BID [facility] Stop: 05/18/23 09:26 Last Admin: 11/19/22 09:33 Dose: 2 mg Docusate Sodium (Docusate 100 Mg Capsule) 100 mg PO BID PRN PRN Reason: Constipation Stop: 11/18/23 10:23 Enoxaparin Sodium (Enoxaparin 40 Mg/0.4 Ml Syringe) 40 mg SUBCUT DAILY@1000 [facility] Stop: 11/06/23 09:59 Last Admin: 11/19/22 09:06 Dose: 40 mg Fluoxetine HCl (Fluoxetine Soln 20 Mg/5 Ml) 40 mg PO HS [facility] Stop: 11/07/23 21:59 Last Admin: 11/16/22 21:14 Dose: 40 mg Fluoxetine HCl (Fluoxetine Soln 20 Mg/5 Ml) 20 mg PO DAILY@0600 [facility] Stop: 11/08/23 05:59 Last Admin: 11/17/22 05:13 Dose: 20 mg Heparin Sodium (Porcine) (Heparin-Lock 500 Unit/5 Ml Syringe) 0 unit IV-PUSH QSHIFT [facility] Stop: 11/14/23 21:59 Last Admin: 11/19/22 06:42 Dose: 500 unit Hydromorphone HCl (Hydromorphone 1 Mg/Ml Syringe) 1 mg IV-PUSH Q4H PRN PRN Reason: Pain Linezolid (Zyvox) 600 mg in 300 mls @ 300 mls/hr IV Q12H [facility] Last Admin: 11/18/22 22:59 Dose: 300 mls/hr Meropenem (Merrem) 1 gm in 100 mls @ 33.333 mls/hr IV Q8H [facility] Last Admin: 11/19/22 09:07 Dose: 33.33 mls/hr Lidocaine HCl (Lidocaine 1% Pf 5 Ml Inj.Zara) 10 ml INFILTRATN ONCE PRN PRN Reason: Pain Magnesium Hydroxide (Magnesium Hydroxide Susp 30 Ml Udc) 30 ml PO DAILY PRN PRN Reason: Constipation Stop: 11/07/23 07:44 Last Admin: 11/16/22 08:46 Dose: 30 ml Metoprolol Tartrate (Metoprolol Tartrate 12.5 Mg Tablet) 12.5 mg PO BID SHANE Stop: 11/18/23 20:59 Last Admin: 11/19/22 09:07 Dose: 12.5 mg Naproxen (Naproxen 500 Mg Tablet) 500 mg PO BID.WITH.MEALS PRN PRN Reason: Pain Stop: 11/18/23 16:47 Last Admin: 11/19/22 09:06 Dose: 500 mg Nicotine (Nicotine Patch 21 Mg/24hr 1 Each Patch.Td24) 1 each TRANSDERML DAILY PRN PRN Reason: Nicotine Cravings Stop: 12/16/22 09:01 Pantoprazole Sodium (Pantoprazole 40 Mg Vial) 40 mg IV-PUSH DAILY [facility] Stop: 11/08/23 08:59 Last Admin: 11/19/22 09:06 Dose: 40 mg Polyethylene Glycol (Polyethylene Glycol 3350 17 Gm Powd.Pack) 17 gm OG-TUBE DAILY PRN PRN Reason: Constipation Stop: 11/14/23 08:52 Last Admin: 11/16/22 21:13 Dose: 17 gm Sennosides (Sennosides 8.6 Mg Tablet) 1 tab PO BID PRN PRN Reason: Constipation Stop: 11/18/23 10:23 Sodium Chloride (Sodium Chloride 0.9 % 10 Ml Syringe) 0 ml IV-PUSH QSHIFT [facility] Stop: 11/05/23 05:59 Last Admin: 11/19/22 06:43 Dose: 10 ml Sodium Chloride (Sodium Chloride 0.9 % 10 Ml Syringe) 10 ml IV-PUSH PRN PRN PRN Reason: Flush Stop: 11/07/23 08:37 Last Admin: 11/15/22 08:11 Dose: 10 ml Sodium Chloride (Sodium Chloride 0.9 % 10 Ml Vial.Pf) 10 ml INJECTION DAILY [facility] [facility] Stop: 11/08/23 08:59 Last Admin: 11/19/22 09:06 Dose: 10 ml Sodium Chloride (Sodium Chloride 0.9 % 10 Ml Syringe) 0 ml IV-PUSH PRN PRN PRN Reason: Flush Stop: 11/14/23 15:02 Last Admin: 11/17/22 13:18 Dose: 10 ml Tizanidine HCl (Tizanidine 4 Mg Tablet) 4 mg PO BID@0900,1400 PRN PRN Reason: Muscle Spasm Stop: 11/05/23 06:39 Last Admin: 11/19/22 09:07 Dose: 4 mg Tizanidine HCl (Tizanidine 4 Mg Tablet) 8 mg PO HS PRN PRN Reason: Muscle Spasm Stop: 11/05/23 07:18 Last Admin: 11/18/22 21:44 Dose: 8 mg A&P - Infectious Disease Assessment/Plan (1) Fever: Code(s): R50.9 - Fever, unspecified Status: Acute (2) Acute hypoxemic respiratory failure: Code(s): J96.01 - Acute respiratory failure with hypoxia Status: Acute (3) Parainfluenza: Code(s): B34.8 - Other viral infections of unspecified site Status: Acute (4) Community acquired pneumonia: Code(s): J18.9 - Pneumonia, unspecified organism Status: Acute Plan Fever curve remains improved. Now on day 3 of linezolid and meropenem. Only new culture result from the [facility] positive was corynebacterium. Patient clinically is better as he sitting up in a chair talking and denies any acute complaints. Did not cough follows in the room. Plan is to get the chest tube out soon. Unless new culture results become available plan to finish 7 days of linezolid and meropenem. Documented By: Sanjay Holt MD 11/19/22939 Signed By: <Electronically signed by MD Sanjay Holt> 11/19/2245 [facility] Work Phone: [phone] 370-348705-12-2023 Progress note Author Shant Villegas [facility] November 18, 2022 12:45pm Note Date/Time November 18, 2022 12:44 pm [facility] [address] [place] [address] Hospitalist Progress Note Signed Patient: Lori Anton MR#: [id number] : 1965 Acct:[id number] Age/Sex: 57 / M Adm Date: 3 Loc: Room: [address] [place] [address] Type: ADM IN Attending Dr: Shant Villegas MD Copies to: ~ Date of Service: 11/18/2022 Subjective Subjective Narrative: Patient examined at bedside with present in the room. Got extubated earlier today and currently on 5 L oxygen. He mentioned feeling weak but able to talk and does not appear to be in respiratory distress. He was having low-grade fever overnight which has resolved in the morning. No growth on cultures so far with only bronchial washing growing Corynebacterium. Patient currently on linezolid and meropenem. Assessment And Plan 57M with PMH of HTN, DJD, Tobacco abuse, Depression who p/w ever, cough, and right-sided chest pain to the [facility] ED and Transferred for the evaluation and treatment of Bacterial pneumonia Bacterial pneumonia/Parainfluenza Infection Patient has been extubated. Encouraged to continue with pulmonary toilet. On meropenem and linezolid. WBC count has increased to 13.7 today. Acute respiratory failure with hypercapnia Patient has been extubated and currently on 5 L oxygen. Taper oxygen as tolerated. Consult PT/OT. Right pneumothorax s/p chest tube placement x1. Right axillary chest tube has been removed. Chest x-ray negative for pneumothorax. Exam Physical Exam Vital Signs: Temp Pulse Resp BP Pulse Ox O2 Del Method O2 Flow Rate 98.9 F 89 24 149/75 H 98 Nasal Cannula 5 11/18/22 12:00 11/18/22 12:00 11/18/22 12:00 11/18/22 12:00 11/18/22 12:00 11/18/22 12:00 11/18/22 12:00 FiO2 40 11/18/22 09:00 Const Orientation: awake Other: Patient extubated. Awake and following commands. Resp Effort & Inspection: normal respiratory effort and able to speak in complete sentences Auscultation: diminished lung sounds, no rales, no rhonchi and no wheezes Cardio Rate: regular rate Rhythm: regular rhythm Heart Sounds: S1 normal and S2 normal GI Palpation: soft, not firm and no guarding Neuro General: patient awake, moves all extremities and no focal motor deficits Extrem General: no clubbing, cyanosis or edema and no calf tenderness Objective Lab Results 11/18/22 05:35 11/18/22 05:35 Microbiology Results Microbiology 11/16/22 10:38 Blood - Right Antecubital Blood Culture - Preliminary No Growth 2 Days 11/16/22 10:22 Blood - Port Blood Culture - Preliminary No Growth 2 Days 11/17/22 10:40 Sputum - Endotrachael Aerobic Culture - Preliminary 11/17/22 10:40 Sputum - Endotrachael Gram Stain - Final 11/17/22 09:59 Blood - Right Antecubital Blood Culture - Preliminary No Growth 1 Day 11/17/22 10:00 Blood - Right Antecubital Blood Culture - Preliminary No Growth 1 Day 11/16/22 10:25 [place] Urine Culture - Final No Growth 2 Days ABG Interpretation ABG results: 11/18/22 05:32 ABG pH 7.49 H ABG pCO2 43.5 ABG pO2 78.1 L ABG HCO3 32.2 H ABG Total CO2 33.5 H ABG O2 Saturation 95.6 ABG O2 Content 7.1 ABG Base Excess 7.9 H Meds Allergies and Active Meds Allergies erythromycin base Allergy (Verified 11/05/22 04:16) Rash Penicillins Allergy (Verified 11/05/22 04:16) Anaphylaxis Active Meds: Active Medications Generic Name Dose Route Start Last Admin Trade Name Freq PRN Reason Stop Dose Admin Acetaminophen 1,000 mg 11/05/22 03:36 11/18/22 11:40 Acetaminophen 500 Mg Tablet PO 11/05/23 03:35 1,000 mg Q6HR PRN Administration Pain Scale 1 - 3 or fever Albuterol 2.5 mg 11/18/22 09:43 Albuterol Neb 2.5 Mg/3 Ml Vial.Neb INHALATION 11/18/23 09:42 Q3H PRN Shortness Of Breath Albuterol/Ipratropium 3 ml 11/18/22 12:00 Ipratropium/Albuterol 0.5-3 Mg 3 Ml Ampul.Neb INHALATION 11/18/23 11:59 QID.RESP SHANE Docusate Sodium 100 mg 11/18/22 10:24 Docusate 100 Mg Capsule PO 11/18/23 10:23 BID PRN Constipation Enoxaparin Sodium 40 mg 11/06/22 10:00 11/18/22 09:57 Enoxaparin 40 Mg/0.4 Ml Syringe SUBCUT 11/06/23 09:59 40 mg DAILY@1000 SHANE Administration Fluoxetine HCl 40 mg 11/07/22 22:00 11/16/22 21:14 Fluoxetine Soln 20 Mg/5 Ml PO 11/07/23 21:59 40 mg HS SHANE Administration Fluoxetine HCl 20 mg 11/08/22 06:00 11/17/22 05:13 Fluoxetine Soln 20 Mg/5 Ml PO 11/08/23 05:59 20 mg DAILY@0600 SHANE Administration Heparin Sodium (Porcine) 0 unit 11/14/22 22:00 11/18/22 06:37 Heparin-Lock 500 Unit/5 Ml Syringe IV-PUSH 11/14/23 21:59 1,000 unit QSHIFT SHANE Administration Hydromorphone HCl 1 mg 11/18/22 12:08 Hydromorphone 1 Mg/Ml Syringe IV-PUSH Q4H PRN Pain Linezolid 600 mg in 300 mls @ 300 mls/hr 11/17/22 11:00 11/18/22 11:14 Zyvox IV 300 mls/hr Q12H SHANE Administration Meropenem 1 gm in 100 mls @ 33.333 mls/hr 11/17/22 18:00 11/18/22 11:14 Merrem IV 33.33 mls/hr Q8H SHANE Administration Lidocaine HCl 10 ml 11/09/22 13:55 Lidocaine 1% Pf 5 Ml Inj.Zara INFILTRATN ONCE PRN Pain Magnesium Hydroxide 30 ml 11/07/22 07:45 11/16/22 08:46 Magnesium Hydroxide Susp 30 Ml Udc PO 11/07/23 07:44 30 ml DAILY PRN Administration Constipation Metoprolol Tartrate 5 mg 11/07/22 05:11 11/07/22 05:25 Metoprolol Tartrate 5 Mg/5 Ml Vial IV-PUSH 5 mg Q5M PRN Administration Tachyarrhythmias Metoprolol Tartrate 12.5 mg 11/18/22 21:00 Metoprolol Tartrate 12.5 Mg Tablet PO 11/18/23 20:59 BID SHANE Nicotine 1 each 11/05/22 04:33 Nicotine Patch 21 Mg/24hr 1 Each Patch.Td24 TRANSDERML 12/16/22 09:01 DAILY PRN Nicotine Cravings Pantoprazole Sodium 40 mg 11/08/22 09:00 11/18/22 09:57 Pantoprazole 40 Mg Vial IV-PUSH 11/08/23 08:59 40 mg DAILY SHANE Administration Polyethylene Glycol 17 gm 11/14/22 08:53 11/16/22 21:13 Polyethylene Glycol 3350 17 Gm Powd.Pack OG-TUBE 11/14/23 08:52 17 gm DAILY PRN Administration Constipation Sennosides 1 tab 11/18/22 10:24 Sennosides 8.6 Mg Tablet PO 11/18/23 10:23 BID PRN Constipation Sodium Chloride 0 ml 11/05/22 06:00 11/18/22 06:38 Sodium Chloride 0.9 % 10 Ml Syringe IV-PUSH 11/05/23 05:59 30 ml QSHIFT SHANE Administration Sodium Chloride 10 ml 11/07/22 08:38 11/15/22 08:11 Sodium Chloride 0.9 % 10 Ml Syringe IV-PUSH 11/07/23 08:37 10 ml PRN PRN Administration Flush Sodium Chloride 10 ml 11/08/22 09:00 11/18/22 09:57 Sodium Chloride 0.9 % 10 Ml Vial.Pf INJECTION 11/08/23 08:59 10 ml DAILY SHANE Administration Sodium Chloride 0 ml 11/14/22 15:03 11/17/22 13:18 Sodium Chloride 0.9 % 10 Ml Syringe IV-PUSH 11/14/23 15:02 10 ml PRN PRN Administration Flush Tizanidine HCl 4 mg 11/05/22 06:40 11/06/22 23:06 Tizanidine 4 Mg Tablet PO 11/05/23 06:39 4 mg BID@0900,1400 PRN Administration Muscle Spasm Tizanidine HCl 8 mg 11/05/22 07:19 11/05/22 21:39 Tizanidine 4 Mg Tablet PO 11/05/23 07:18 8 mg HS PRN Administration Muscle Spasm A&P - Hospitalist Assessment/Plan (1) Community acquired pneumonia: (2) HTN (hypertension): (3) Acute hypoxemic respiratory failure: (4) Parainfluenza: Plan . Documented By: Shant Villegas MD 11/18/22 1239 Signed By: <Electronically signed by Shant Villegas MD> 11/18/22 1245 [facility] Work Phone: [phone]) 900-682605-12-2023 Progress note Author Ismael Huitron [facility] November 18, 2022 12:09pm Note Date/Time November 18, 2022 11:33 am [facility] [address] [place] [address] Pulmonology Progress Note Signed Patient: Lori Anton MR#: [id number] : 1965 Acct:[id number] Age/Sex: 57 / M Adm Date: 3 Loc: Room: [address] [place] [address] Type: ADM IN Attending Dr: Shant Villegas MD Copies to: ~ Date of Service: 11/18/2022 Subjective Subjective Narrative: Patient remains easily arousable even with increased sedation this morning, comfortable in bed, moves all extremities, answers questions with a yes or no not, in no distress at this point. Oxygenation is continuing to improve he is down to 40% FiO2 with 6 of PEEP. Chest x-ray remains stable. White count remained mildly elevated but improving generally. Blood gases were adequate with good oxygenation on 40%. 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 Patient has had no air leak, his CT also showed pleural thickening around the cavitation which suggest adequate control of bronchopleural fistula. Exam Physical Exam Vital Signs: Temp Pulse Resp BP Pulse Ox O2 Del Method O2 Flow Rate 98.8 F 97 H 24 164/79 H 99 Mechanical Ventilation 65 11/18/22 08:00 11/18/22 11:00 11/18/22 11:00 11/18/22 11:00 11/18/22 11:00 11/18/22 10:00 11/16/22 08:00 FiO2 40 11/18/22 09:00 Narrative: General: Patient is sedated, but arousable to voice and follows simple commands Eyes: Pupils equal round reactive to light HEENT: Normocephalic, atraumatic, oral mucosa moist Neck: Supple no lymphadenopathy or thyromegaly Cardiovascular: S1, S2, normal sounds, no murmurs or gallops noted, regular rhythm Lungs: Adequate breath sounds yet still decreased more on the right than the left Extremities: No significant peripheral edema, peripheral pulses adequate Neurologic: Sedated, on the vent, but arousable as mentioned above Objective Intake and Output I&O - Last 24 Hours: Intake & Output 11/17/22 11/18/22 11/18/22 23:59 07:59 15:59 Intake Total 700 / 2610 1482 / 1482 Output Total 1300 / 3431 675 / 675 0 / 675 Balance -600 / -821 807 / 807 0 / 807 Weight 102 kg Labs 11/18/22 05:35 11/18/22 05:35 Microbiology Micro: Microbiology 11/16/22 10:38 Blood Culture - Preliminary Blood - Right Antecubital No Growth 2 Days 11/16/22 10:22 Blood Culture - Preliminary Blood - Port No Growth 2 Days 11/17/22 10:40 Aerobic Culture - Preliminary Sputum - Endotrachael Gram Stain - Final 11/17/22 09:59 Blood Culture - Preliminary Blood - Right Antecubital No Growth 1 Day 11/17/22 10:00 Blood Culture - Preliminary Blood - Right Antecubital No Growth 1 Day 11/16/22 10:25 Urine Culture - Final [place] Port No Growth 2 Days Assessment/Plan Assessment/Plan (1) Acute hypoxemic respiratory failure: (2) Tension pneumothorax: (3) Hilar lymphadenopathy: (4) Atelectasis: (5) Community acquired pneumonia: (6) Nicotine dependence: Plan * Discontinue sedation * Extubate when fully awake * Monitor closely in ICU after extubation * Oxygen replacement therapy, BiPAP as needed * Chest tube removal if remains stable by tomorrow morning * Pain control after extubation with as needed Dilaudid * Continue with physical therapy as tolerated after extubation * If stable following extubation, swallowing assessment and advance p.o. diet as tolerated * Will continue to follow Documented By: Ismael Huitron MD 11/18/22 1131 Signed By: <Electronically signed by Ismael Huitron MD> 11/18/22 1209 [facility] Work Phone: [phone] 338-208905-12-2023 Progress note Author Sanjay Holt [facility] November 18, 2022 10:49am Note Date/Time November 18, 2022 10:49 am [facility] [address] [place] [address] Infect. Disease Progress Note Signed Patient: Lori Anton MR#: [id number] : 1965 Acct:[id number] Age/Sex: 57 / M Adm Date: 3 Loc: Room: 5R0544-1 Type: ADM IN Attending Dr: Shant Villegas MD Copies to: ~ Date of Service: 11/18/2022 Subjective Interval history: When I walked into the room patient had just been extubated. Gave me away but was coughing and they were suctioning him. Pillars a little diaphoretic. Chesttube remains in place been told this is coming out as well. Temperatures are low- grade 99 range. Exam Physical Exam Vital Signs: Vital Signs Temp Pulse Resp BP Pulse Ox O2 Del Method FiO2 11/18/22 10:00 89 16 164/96 H 97 Mechanical Ventilation 11/18/22 09:00 85 20 99/54 L 100 Mechanical Ventilation 40 11/18/22 09:32 81 99/54 L 11/18/22 08:38 77 20 40 11/18/22 08:00 Mechanical Ventilation 40 11/18/22 08:00 98.8 F 81 22 145/82 H 99 Mechanical Ventilation 40 11/18/22 07:58 82 104/58 L 11/18/22 07:55 40 11/18/22 07:00 81 20 104/58 L 97 Mechanical Ventilation 40 11/18/22 07:00 40 11/18/22 06:33 79 131/69 11/18/22 05:34 79 131/69 11/18/22 06:00 40 11/18/22 06:00 95 H 20 131/69 96 Mechanical Ventilation 40 11/18/22 05:00 99 H 20 143/75 H 97 Mechanical Ventilation 40 11/18/22 05:00 40 11/18/22 04:31 98 H 20 40 11/18/22 04:00 Mechanical Ventilation 40 11/18/22 04:00 99.3 F H 95 H 20 125/73 99 Mechanical Ventilation 40 11/18/22 04:00 40 11/18/22 03:00 88 20 101/58 L 100 Mechanical Ventilation 40 11/18/22 03:00 40 11/18/22 02:00 40 11/18/22 02:00 79 20 101/59 L 97 Mechanical Ventilation 40 11/18/22 00:00 99.5 F H 108 H 15 182/89 H 95 Mechanical Ventilation 40 11/17/22 23:00 98 H 19 149/84 H 95 Mechanical Ventilation 40 11/18/22 01:00 40 11/18/22 00:15 103 H 21 40 11/18/22 00:16 100 H 182/89 H 11/18/22 00:16 100 H 182/89 H 11/18/22 00:00 40 11/17/22 23:00 40 11/17/22 22:00 104 H 19 151/80 H 95 Mechanical Ventilation 40 11/17/22 22:00 40 11/17/22 21:00 102 H 18 170/97 H 98 Mechanical Ventilation 40 11/17/22 20:00 98 H 26 H 129/81 98 Mechanical Ventilation 40 11/17/22 19:00 99.3 F H 102 H 22 132/74 97 Mechanical Ventilation 40 11/17/22 18:00 102 H 26 H 131/72 97 Mechanical Ventilation 40 11/17/22 17:00 100 H 20 125/73 97 Mechanical Ventilation 40 11/17/22 21:00 40 11/17/22 20:00 40 11/17/22 20:00 Mechanical Ventilation 40 11/17/22 19:00 40 11/17/22 20:22 103 H 24 40 11/17/22 20:14 104 H 129/81 11/17/22 20:14 104 H 129/81 11/17/22 18:00 40 11/17/22 17:00 40 11/17/22 16:00 99.3 F H 112 H 23 158/92 H 95 Mechanical Ventilation 40 11/17/22 15:00 114 H 25 H 173/95 H 99 Mechanical Ventilation 40 11/17/22 16:00 Mechanical Ventilation 40 11/17/22 16:00 40 11/17/22 16:11 108 H 158/92 H 11/17/22 16:11 108 H 158/92 H 11/17/22 15:00 40 11/17/22 14:00 99 H 22 132/82 98 Mechanical Ventilation 40 11/17/22 14:00 40 11/17/22 13:00 92 H 21 120/74 98 Mechanical Ventilation 40 11/17/22 13:00 40 11/17/22 11:57 Mechanical Ventilation 45 11/17/22 11:56 99.4 F H 92 H 20 106/77 99 Mechanical Ventilation 45 11/17/22 11:55 45 11/17/22 11:00 145 H 21 106/77 90 L Mechanical Ventilation 45 11/17/22 11:00 45 Intake and Output 11/17/22 11/18/22 11/18/22 23:59 07:59 15:59 Intake Total 400 / 2310 1382 / 1382 Output Total 1300 / 3431 675 / 675 0 / 675 Balance -900 / -1121 707 / 707 0 / 707 Intake: IV 400 / 1000 400 / 400 Meropenem 1Gm-*Ns* 1 gm In 100 100 / 100 ml @ 33.333 mls/hr IV Q8H SHANE Rx#:[id number] fentaNYL 1,000 mcg-*D5W* 1,000 100 / 200 200 / 200 mcg In 100 ml @ 25 MCG/HR 2.5 mls/hr IV .Q24H SHANE Rx#: [id number] propofoL 1,000 mg In 100 ml @ 200 / 400 200 / 200 20 MCG/KG/MIN 12.6 mls/hr IV . Q7H57M SHANE Rx#:[id number] Tube Feeding 982 / 982 Output: Urine Amount (Catheter) 1300 / 3425 675 / 675 Urethral (Jones) 1300 / 3425 675 / 675 Chest Tube Drainage 0 / 6 0 / 0 0 / 0 Right Anterior Chest 0 / 6 0 / 0 0 / 0 Other: # Incontinent Bowel Movements 1 Weight 102 kg Date of Last Bowel Movement 11/17/22 11/17/22 11/17/22 Patient Weight 11/18/22 23:59 Weight 102 kg Const General: diaphoretic and disheveled Nutritional Appearance: average body habitus Orientation: awake HEENT Head: normal to inspection Ears: hearing grossly normal bilaterally Eyes General: appearance normal, both eyes and all related structures Neck Neck: normal visual inspection Chest Chest palpation & inspection: abnormal inspection of the chest (R sided chest tube) Resp Auscultation: crackles and diminished lung sounds Cardio Palpation: normal PMI Rhythm: regular rhythm GI Inspection: normal to inspection Palpation: soft and nontender Skin General: no rashes or lesions noted Neuro General: patient alert and patient awake Extrem General: normal to inspection Objective Labs CBC/BMP: CBC, BMP 11/18/22 11/18/22 05:35 05:35 Corrected WBC 13.7 H Uncorrected WBC Count 13.7 H RBC 2.90 L Hgb 8.6 L Hct 25.8 L Plt Count 418 Sodium 134 L Potassium 3.5 Chloride 95 L Carbon Dioxide 34.3 H Anion Gap 8.2 BUN 15 Creatinine 0.39 L Calcium 7.9 L Labs: 11/18/22 05:35 BUN 15 Creatinine 0.39 L Microbiology Microbiology: Microbiology - Results from entire visit 11/16/22 10:22 Blood - Port Blood Culture - Preliminary No Growth 2 Days 11/17/22 10:40 Sputum - Endotrachael Aerobic Culture - Preliminary 11/17/22 10:40 Sputum - Endotrachael Gram Stain - Final 11/17/22 09:59 Blood - Right Antecubital Blood Culture - Preliminary No Growth 1 Day 11/17/22 10:00 Blood - Right Antecubital Blood Culture - Preliminary No Growth 1 Day 11/16/22 10:25 [place] Urine Culture - Final No Growth 2 Days 11/16/22 10:38 Blood - Right Antecubital Blood Culture - Preliminary No Growth 1 Day 11/14/22 14:19 Bronchial Washings - Bilateral Bronchial Culture - Final Corynebacterium striatum group 11/14/22 14:19 Bronchial Washings - Bilateral AFB Smear Concentration - Final 11/14/22 14:19 Bronchial Washings - Bilateral Acid Fast Bacilli Smear - Final 11/10/22 11:00 Blood - Central line Blood Culture - Final NO GROWTH 5 DAYS 11/10/22 10:16 Blood - Left Antecubital Blood Culture - Final NO GROWTH 5 DAYS 11/14/22 14:19 Bronchial Washings - Bilateral Fungal Smear - Final 11/14/22 14:19 Bronchial Washings - Bilateral Gram Stain - Final 11/05/22 05:52 Blood - Right Hand Blood Culture - Final NO GROWTH 5 DAYS 11/05/22 05:52 Blood - Left Antecubital Blood Culture - Final NO GROWTH 5 DAYS 11/05/22 10:30 Sputum - Expectorated Aerobic Culture - Final Lydnsay albicans 11/05/22 10:30 Sputum - Expectorated Gram Stain - Final 11/05/22 09:40 Nasopharyngeal Respiratory Panel (PCR) - Final Allergies and Medications Allergies and Active Meds Allergies erythromycin base Allergy (Verified 11/05/22 04:16) Rash Penicillins Allergy (Verified 11/05/22 04:16) Anaphylaxis Active Medications Acetaminophen (Acetaminophen 500 Mg Tablet) 1,000 mg PO Q6HR PRN PRN Reason: Pain Scale 1 - 3 or fever Stop: 11/05/23 03:35 Last Admin: 11/17/22 07:35 Dose: 1,000 mg Albuterol (Albuterol Neb 2.5 Mg/3 Ml Vial.Neb) 2.5 mg INHALATION Q3H PRN PRN Reason: Shortness Of Breath Stop: 11/18/23 09:42 Albuterol/Ipratropium (Ipratropium/Albuterol 0.5-3 Mg 3 Ml Ampul.Neb) 3 ml INHALATION QID.RESP SHANE Stop: 11/18/23 11:59 Docusate Sodium (Docusate 100 Mg Capsule) 100 mg PO BID PRN PRN Reason: Constipation Stop: 11/18/23 10:23 Enoxaparin Sodium (Enoxaparin 40 Mg/0.4 Ml Syringe) 40 mg SUBCUT DAILY@1000 [facility] Stop: 11/06/23 09:59 Last Admin: 11/18/22 09:57 Dose: 40 mg Fluoxetine HCl (Fluoxetine Soln 20 Mg/5 Ml) 40 mg PO HS [facility] Stop: 11/07/23 21:59 Last Admin: 11/16/22 21:14 Dose: 40 mg Fluoxetine HCl (Fluoxetine Soln 20 Mg/5 Ml) 20 mg PO DAILY@0600 [facility] Stop: 11/08/23 05:59 Last Admin: 11/17/22 05:13 Dose: 20 mg Heparin Sodium (Porcine) (Heparin-Lock 500 Unit/5 Ml Syringe) 0 unit IV-PUSH QSHIFT [facility] Stop: 11/14/23 21:59 Last Admin: 11/18/22 06:37 Dose: 1,000 unit Linezolid (Zyvox) 600 mg in 300 mls @ 300 mls/hr IV Q12H [facility] Last Admin: 11/17/22 22:16 Dose: 300 mls/hr Meropenem (Merrem) 1 gm in 100 mls @ 33.333 mls/hr IV Q8H [facility] Last Admin: 11/18/22 01:54 Dose: 33.33 mls/hr Lidocaine HCl (Lidocaine 1% Pf 5 Ml Inj.Zara) 10 ml INFILTRATN ONCE PRN PRN Reason: Pain Magnesium Hydroxide (Magnesium Hydroxide Susp 30 Ml Udc) 30 ml PO DAILY PRN PRN Reason: Constipation Stop: 11/07/23 07:44 Last Admin: 11/16/22 08:46 Dose: 30 ml Metoprolol Tartrate (Metoprolol Tartrate 5 Mg/5 Ml Vial) 5 mg IV-PUSH Q5M PRN PRN Reason: Tachyarrhythmias Last Admin: 11/07/22 05:25 Dose: 5 mg Metoprolol Tartrate (Metoprolol Tartrate 12.5 Mg Tablet) 12.5 mg OG-TUBE BID [facility] Stop: 11/17/23 11:29 Last Admin: 11/18/22 09:57 Dose: 12.5 mg Nicotine (Nicotine Patch 21 Mg/24hr 1 Each Patch.Td24) 1 each TRANSDERML DAILY PRN PRN Reason: Nicotine Cravings Stop: 12/16/22 09:01 Pantoprazole Sodium (Pantoprazole 40 Mg Vial) 40 mg IV-PUSH DAILY SHANE Stop: 11/08/23 08:59 Last Admin: 11/18/22 09:57 Dose: 40 mg Polyethylene Glycol (Polyethylene Glycol 3350 17 Gm Powd.Pack) 17 gm OG-TUBE DAILY PRN PRN Reason: Constipation Stop: 11/14/23 08:52 Last Admin: 11/16/22 21:13 Dose: 17 gm Sennosides (Sennosides 8.6 Mg Tablet) 1 tab PO BID PRN PRN Reason: Constipation Stop: 11/18/23 10:23 Sodium Chloride (Sodium Chloride 0.9 % 10 Ml Syringe) 0 ml IV-PUSH QSHIFT [facility] Stop: 11/05/23 05:59 Last Admin: 11/18/22 06:38 Dose: 30 ml Sodium Chloride (Sodium Chloride 0.9 % 10 Ml Syringe) 10 ml IV-PUSH PRN PRN PRN Reason: Flush Stop: 11/07/23 08:37 Last Admin: 11/15/22 08:11 Dose: 10 ml Sodium Chloride (Sodium Chloride 0.9 % 10 Ml Vial.Pf) 10 ml INJECTION DAILY SHANE Stop: 11/08/23 08:59 Last Admin: 11/18/22 09:57 Dose: 10 ml Sodium Chloride (Sodium Chloride 0.9 % 10 Ml Syringe) 0 ml IV-PUSH PRN PRN PRN Reason: Flush Stop: 11/14/23 15:02 Last Admin: 11/17/22 13:18 Dose: 10 ml Tizanidine HCl (Tizanidine 4 Mg Tablet) 4 mg PO BID@0900,1400 PRN PRN Reason: Muscle Spasm Stop: 11/05/23 06:39 Last Admin: 11/06/22 23:06 Dose: 4 mg Tizanidine HCl (Tizanidine 4 Mg Tablet) 8 mg PO HS PRN PRN Reason: Muscle Spasm Stop: 11/05/23 07:18 Last Admin: 11/05/22 21:39 Dose: 8 mg A&P - Infectious Disease Assessment/Plan (1) Fever: Code(s): R50.9 - Fever, unspecified Status: Acute (2) Acute hypoxemic respiratory failure: Code(s): J96.01 - Acute respiratory failure with hypoxia Status: Acute (3) Parainfluenza: Code(s): B34.8 - Other viral infections of unspecified site Status: Acute (4) Community acquired pneumonia: Code(s): J18.9 - Pneumonia, unspecified organism Status: Acute Plan Fever curve is a little better today. Cultures were sent yesterday nothing new resulted as of yet. White count is down today 13.7. He was just extubated. Chest tubes come out. Patient clearly having some loose stools but after not having a bowel movement for 10 days and all the things he has been given to try to get him to go this is probably not unexpected. Yesterday started on linezolid and meropenem due to fevers. I am planning to continue this while cultures incubate and will adjust based on any results that may suggest otherwise Documented By: Sanjay Holt MD 11/18/221044 Signed By: <Electronically signed by MD Sanjay Holt> 11/18/22 1049 [facility] Work Phone: 1(750) 636-487705-12-2023 Progress note Author Sanjay Holt [facility] November 18, 2022 10:45am Note Date/Time November 17, 2022 9:25a m [facility] [address] [place] [address] Infect. Disease Progress Note Signed Patient: Lori Anton MR#: [id number] : 1965 Acct:[id number] Age/Sex: 57 / M Adm Date: 3 Loc: 4C Room: [address] [place] [address] Type: ADM IN Attending Dr: Shant Villegas MD Copies to: ~ Date of Service: 11/17/2022 Subjective Interval history: Patient eyes open. Remains intubated. Just had BM after 10 days without one. Does not appear in distress. T-current 102.1 Exam Physical Exam Vital Signs: Temp Pulse Resp BP Pulse Ox O2 Del Method O2 Flow Rate 102.1 F H 103 H 20 142/83 H 95 Mechanical Ventilation 65 11/17/22 08:00 11/17/22 09:00 11/17/22 09:00 11/17/22 09:00 11/17/22 09:00 11/17/22 09:00 11/16/22 08:00 FiO2 45 11/17/22 09:00 Const General: ill appearing and other (eyes open) Orientation: awake HEENT Head: normal to inspection Mouth: other (ETT) Eyes General: appearance normal, both eyes and all related structures Neck Neck: normal visual inspection (5/ R IJ CVC) Chest Chest palpation & inspection: abnormal inspection of the chest (chest tubes on right) Resp Effort & Inspection: other (on vent) Auscultation: diminished lung sounds Cardio Rate: tachycardic GI Palpation: soft and tender (grimaces with exam) Auscultation: normal bowel sounds Skin General: no rashes or lesions noted and other (few blisters R side of abd/thigh likely from chest tube) Neuro General: patient awake Extrem General: normal to inspection and edema (improved) Objective Labs CBC/BMP: CBC, BMP 11/17/22 11/17/22 04:15 04:15 Corrected WBC 20.5 H RBC 3.12 L Hgb 9.1 L Hct 28.0 L Plt Count 423 Sodium 132 L Potassium 4.0 Chloride 93 L Carbon Dioxide 33.7 H Anion Gap 9.3 BUN 23 Creatinine 0.50 L Calcium 7.8 L Labs: 11/17/22 04:15 BUN 23 Creatinine 0.50 L Microbiology Microbiology: Microbiology - Results from entire visit 11/14/22 14:19 Bronchial Washings - Bilateral Bronchial Culture - Final Corynebacterium striatum group 11/14/22 14:19 Bronchial Washings - Bilateral AFB Smear Concentration - Final 11/14/22 14:19 Bronchial Washings - Bilateral Acid Fast Bacilli Smear - Final 11/10/22 11:00 Blood - Central line Blood Culture - Final NO GROWTH 5 DAYS 11/10/22 10:16 Blood - Left Antecubital Blood Culture - Final NO GROWTH 5 DAYS 11/14/22 14:19 Bronchial Washings - Bilateral Fungal Smear - Final 11/14/22 14:19 Bronchial Washings - Bilateral Gram Stain - Final 11/05/22 05:52 Blood - Right Hand Blood Culture - Final NO GROWTH 5 DAYS 11/05/22 05:52 Blood - Left Antecubital Blood Culture - Final NO GROWTH 5 DAYS 11/05/22 10:30 Sputum - Expectorated Aerobic Culture - Final Lyndsay albicans 11/05/22 10:30 Sputum - Expectorated Gram Stain - Final 11/05/22 09:40 Nasopharyngeal Respiratory Panel (PCR) - Final Additional Results Results Comment: IMPRESSION: ? 1.? NO EVIDENCE OF ACUTE PULMONARY EMBOLISM . 2.? RIGHT-SIDED CHEST TUBE IN PLACE WITHOUT PNEUMOTHORAX. 3.? TUBES IN SATISFACTORY POSITIONS. RIGHT-SIDED IJ LINE IS IDENTIFIED WITH TIP WITHIN THE SVC RIGHT ATRIAL JUNCTION. 4.? CONSOLIDATIVE CHANGES INVOLVING THE LOWER LOBES WELL RIGHT MIDDLE LOBEWITH A CAVITARY COMPONENTS INVOLVING THE RIGHT MIDDLE LOBE CONSOLIDATION. AN ATYPICAL INFECTIOUS PROCESS CANNOT BE EXCLUDED. THERE IS ALSO ASSOCIATED GROUNDGLASS INVOLVING THE LEFT UPPER LOBE POSSIBLY INFECTIOUS IN NATURE WELL.REPEAT CT AFTER THERAPY IS RECOMMENDED TO ENSURE RESOLUTION. Allergies and Medications Allergies and Active Meds Allergies erythromycin base Allergy (Verified 11/05/22 04:16) Rash Penicillins Allergy (Verified 11/05/22 04:16) Anaphylaxis Active Medications Acetaminophen (Acetaminophen 500 Mg Tablet) 1,000 mg PO Q6HR PRN PRN Reason: Pain Scale 1 - 3 or fever Stop: 11/05/23 03:35 Last Admin: 11/17/22 07:35 Dose: 1,000 mg Albuterol (Albuterol Hfa 200 Puff/18 Gm Inhaler) 6 puff VENT Q6HR SHANE Stop: 11/07/23 11:59 Last Admin: 11/17/22 05:09 Dose: 6 puff Chlorhexidine Gluconate (Chlorhexidine Gluconate 0.12% 15 Ml Udc) 15 ml MUCOUS MEM BID SHANE Stop: 11/07/23 09:09 Last Admin: 11/17/22 08:39 Dose: 15 ml Docusate Sodium (Docusate Liquid 100 Mg/10 Ml Udc) 100 mg OG-TUBE BID [facility] Stop: 11/07/23 08:59 Last Admin: 11/17/22 08:39 Dose: 100 mg Enoxaparin Sodium (Enoxaparin 40 Mg/0.4 Ml Syringe) 40 mg SUBCUT DAILY@1000 [facility] Stop: 11/06/23 09:59 Last Admin: 11/16/22 09:26 Dose: 40 mg Fluoxetine HCl (Fluoxetine Soln 20 Mg/5 Ml) 40 mg PO HS [facility] Stop: 11/07/23 21:59 Last Admin: 11/16/22 21:14 Dose: 40 mg Fluoxetine HCl (Fluoxetine Soln 20 Mg/5 Ml) 20 mg PO DAILY@0600 [facility] Stop: 11/08/23 05:59 Last Admin: 11/17/22 05:13 Dose: 20 mg Heparin Sodium (Porcine) (Heparin-Lock 500 Unit/5 Ml Syringe) 0 unit IV-PUSH QSHIFT [facility] Stop: 11/14/23 21:59 Last Admin: 11/17/22 05:12 Dose: 1,500 unit Fentanyl (Fentanyl 1,000 Mcg/100 Ml D5w) 1,000 mcg in 100 mls @ 2.5 mls/hr IV .Q24H [facility]; Protocol Last Titration: 11/17/22 07:52 Dose: 125 mcg/hr, 12.5 mls/hr Propofol (Diprivan) 1,000 mg in 100 mls @ 12.6 mls/hr IV .Q7H57M [facility]; Protocol Stop: 11/07/23 07:59 Last Titration: 11/17/22 07:52 Dose: 30 mcg/kg/min, 18.9 mls/hr Midazolam HCl (Versed) 100 mg in 100 mls @ 1 mls/hr IV .Q24H [facility]; Protocol Stop: 05/08/23 10:59 Last Admin: 11/16/22 21:11 Dose: Not Given Lidocaine HCl (Lidocaine 1% Pf 5 Ml Inj.Zara) 10 ml INFILTRATN ONCE PRN PRN Reason: Pain Magnesium Hydroxide (Magnesium Hydroxide Susp 30 Ml Udc) 30 ml PO DAILY PRN PRN Reason: Constipation Stop: 11/07/23 07:44 Last Admin: 11/16/22 08:46 Dose: 30 ml Metoprolol Tartrate (Metoprolol Tartrate 5 Mg/5 Ml Vial) 5 mg IV-PUSH Q5M PRN PRN Reason: Tachyarrhythmias Last Admin: 11/07/22 05:25 Dose: 5 mg Nicotine (Nicotine Patch 21 Mg/24hr 1 Each Patch.Td24) 1 each TRANSDERML DAILY PRN PRN Reason: Nicotine Cravings Stop: 12/16/22 09:01 Pantoprazole Sodium (Pantoprazole 40 Mg Vial) 40 mg IV-PUSH DAILY SHANE Stop: 11/08/23 08:59 Last Admin: 11/17/22 08:39 Dose: 40 mg Polyethylene Glycol (Polyethylene Glycol 3350 17 Gm Powd.Pack) 17 gm OG-TUBE DAILY PRN PRN Reason: Constipation Stop: 11/14/23 08:52 Last Admin: 11/16/22 21:13 Dose: 17 gm Sennosides (Sennosides Syrup 8.8 Mg/5 Ml Udc) 8.8 mg OG-TUBE BID SHANE Stop: 11/16/23 08:59 Last Admin: 11/17/22 08:39 Dose: 8.8 mg Sodium Chloride (Sodium Chloride 0.9 % 10 Ml Syringe) 0 ml IV-PUSH QSHIFT SHANE Stop: 11/05/23 05:59 Last Admin: 11/17/22 05:13 Dose: 10 ml Sodium Chloride (Sodium Chloride 0.9 % 10 Ml Syringe) 10 ml IV-PUSH PRN PRN PRN Reason: Flush Stop: 11/07/23 08:37 Last Admin: 11/15/22 08:11 Dose: 10 ml Sodium Chloride (Sodium Chloride 0.9 % 10 Ml Vial.Pf) 10 ml INJECTION DAILY SHANE Stop: 11/08/23 08:59 Last Admin: 11/17/22 08:40 Dose: 10 ml Sodium Chloride (Sodium Chloride 0.9 % 10 Ml Syringe) 0 ml IV-PUSH PRN PRN PRN Reason: Flush Stop: 11/14/23 15:02 Last Admin: 11/16/22 17:59 Dose: 40 ml Tizanidine HCl (Tizanidine 4 Mg Tablet) 4 mg PO BID@0900,1400 PRN PRN Reason: Muscle Spasm Stop: 11/05/23 06:39 Last Admin: 11/06/22 23:06 Dose: 4 mg Tizanidine HCl (Tizanidine 4 Mg Tablet) 8 mg PO HS PRN PRN Reason: Muscle Spasm Stop: 11/05/23 07:18 Last Admin: 11/05/22 21:39 Dose: 8 mg A&P - Infectious Disease Assessment/Plan (1) Fever: Code(s): R50.9 - Fever, unspecified Status: Acute (2) Acute hypoxemic respiratory failure: Code(s): J96.01 - Acute respiratory failure with hypoxia Status: Acute (3) Parainfluenza: Code(s): B34.8 - Other viral infections of unspecified site Status: Acute (4) Community acquired pneumonia: Code(s): J18.9 - Pneumonia, unspecified organism Status: Acute Plan Fever curve continues and this morning is 1-2.1. Has been off antibiotics now for 2 days. Bronc cultures only with corynebacterium. White count does remain elevated. Loose bowel movement but this was induced essentially given he has not had a bowel movement in 10 days. CTA of the chest reviewed and gone over with Dr. Arroyo. Given persistent fevers and cultures and length of time in the hospital after new cultures will be sent we will place on broad coverage with linezolid and meropenem. Documented By: Sanjay Holt MD 11/17/22 0921 Signed By: <Electronically signed by MD Sanjay Holt> 11/18/22 [address] [facility] Work Phone: 1(144) 366-223805-11-2023 Progress note Author Shant Villegas [facility] November 17, 2022 3:17pm Note Date/Time November 17, 2022 3:17p [facility] [address] [place] [address] Hospitalist Progress Note Signed Patient: Lori Anton MR#: [id number] : 1965 Acct:[id number] Age/Sex: 57 / M Adm Date: 3 Loc: Room: [address] [place] [address] Type: ADM IN Attending Dr: Shant Villegas MD Copies to: ~ Date of Service: 11/17/2022 Subjective Subjective Narrative: Patient intubated with PEEP of 10 and 50% FiO2. He has been spiking fever sinceyesterday and currently getting recultured. No growth on blood culture from yesterday. Bronchial washing growing Corynebacterium stratum patient has been started on linezolid and meropenem by infectious disease. On examination patient is opening his eyes and following commands. Assessment And Plan 57M with PMH of HTN, DJD, Tobacco abuse, Depression who p/w ever, cough, and right-sided chest pain to the [facility] ED and Transferred for the evaluation and treatment of Bacterial pneumonia Bacterial pneumonia/Parainfluenza Infection Continues to have fever with no growth on blood culture. He has been reculturedwith bronchial washing from bronchoscopy growing Corynebacterium. He has been started on linezolid and meropenem. Will BC count remains high. Management of infection as per infectious disease Acute respiratory failure with hypercapnia He remains intubated. Taper oxygen as tolerated. Respiratory failure being managed by pulmonary service. Right pneumothorax s/p chest tube placement x1. Right axillary chest tube has been removed. Patient's condition remains critical given persistent respiratory failure with leukocytosis and fever. Exam Physical Exam Vital Signs: Temp Pulse Resp BP Pulse Ox O2 Del Method O2 Flow Rate 99.4 F H 99 H 22 132/82 98 Mechanical Ventilation 65 11/17/22 11:56 11/17/22 14:00 11/17/22 14:00 11/17/22 14:00 11/17/22 14:00 11/17/22 14:00 11/16/22 08:00 FiO2 40 11/17/22 14:00 Const Other: He is opening his eyes and able to follow simple commands. Resp Effort & Inspection: normal respiratory effort Auscultation: diminished lung sounds, no rales, no rhonchi and no wheezes Other: Coarse breath sounds bilaterally Cardio Rate: tachycardic Rhythm: regular rhythm Heart Sounds: S1 normal and S2 normal GI Palpation: soft, not firm and no guarding Neuro General: moves all extremities Extrem General: no clubbing, cyanosis or edema and no calf tenderness Objective Lab Results 11/17/22 04:15 11/17/22 04:15 Microbiology Results Microbiology 11/17/22 10:40 Sputum - Endotrachael Gram Stain - Final 11/16/22 10:25 [place] Urine Culture - Preliminary No Growth 1 Day 11/16/22 10:38 Blood - Right Antecubital Blood Culture - Preliminary No Growth 1 Day 11/16/22 10:22 Blood - Port Blood Culture - Preliminary No Growth 1 Day ABG Interpretation ABG results: 11/17/22 04:36 ABG pH 7.52 H ABG pCO2 42.2 ABG pO2 54.5 L ABG HCO3 33.7 H ABG Total CO2 35.0 H ABG O2 Saturation 89.2 L ABG O2 Content 5.9 L ABG Base Excess 9.9 H Meds Allergies and Active Meds Allergies erythromycin base Allergy (Verified 11/05/22 04:16) Rash Penicillins Allergy (Verified 11/05/22 04:16) Anaphylaxis Active Meds: Active Medications Generic Name Dose Route Start Last Admin Trade Name Freq PRN Reason Stop Dose Admin Acetaminophen 1,000 mg 11/05/22 03:36 11/17/22 07:35 Acetaminophen 500 Mg Tablet PO 11/05/23 03:35 1,000 mg Q6HR PRN Administration Pain Scale 1 - 3 or fever Albuterol 6 puff 11/07/22 12:00 11/17/22 13:10 Albuterol Hfa 200 Puff/18 Gm Inhaler VENT 11/07/23 11:59 6 puff Q6HR SHANE Administration Chlorhexidine Gluconate 15 ml 11/07/22 09:10 11/17/22 08:39 Chlorhexidine Gluconate 0.12% 15 Ml Udc MUCOUS MEM 11/07/23 09:09 15 ml BID SHANE Administration Docusate Sodium 100 mg 11/07/22 09:00 11/17/22 08:39 Docusate Liquid 100 Mg/10 Ml Udc OG-TUBE 11/07/23 08:59 100 mg BID SHANE Administration Enoxaparin Sodium 40 mg 11/06/22 10:00 11/17/22 09:36 Enoxaparin 40 Mg/0.4 Ml Syringe SUBCUT 11/06/23 09:59 40 mg DAILY@1000 SHANE Administration Fluoxetine HCl 40 mg 11/07/22 22:00 11/16/22 21:14 Fluoxetine Soln 20 Mg/5 Ml PO 11/07/23 21:59 40 mg HS SHANE Administration Fluoxetine HCl 20 mg 11/08/22 06:00 11/17/22 05:13 Fluoxetine Soln 20 Mg/5 Ml PO 11/08/23 05:59 20 mg DAILY@0600 SHANE Administration Heparin Sodium (Porcine) 0 unit 11/14/22 22:00 11/17/22 14:34 Heparin-Lock 500 Unit/5 Ml Syringe IV-PUSH 11/14/23 21:59 500 unit QSHIFT SHANE Administration Fentanyl 1,000 mcg in 100 mls @ 2.5 mls/hr 11/07/22 07:45 11/17/22 10:54 Fentanyl 1,000 Mcg/100 Ml D5w IV 125 mcg/hr .Q24H SHANE 12.5 mls/hr Administration Protocol 25 MCG/HR Propofol 1,000 mg in 100 mls @ 12.6 mls/hr 11/07/22 08:00 11/17/22 09:34 Diprivan IV 11/07/23 07:59 30 mcg/kg/min .Q7H57M SHANE 18.9 mls/hr Administration Protocol 20 MCG/KG/MIN Midazolam HCl 100 mg in 100 mls @ 1 mls/hr 11/09/22 11:00 11/16/22 21:11 Versed IV 05/08/23 10:59 Not Given .Q24H SHANE Protocol 1 MG/HR Linezolid 600 mg in 300 mls @ 300 mls/hr 11/17/22 11:00 11/17/22 11:38 Zyvox IV 300 mls/hr Q12H SHANE Administration Meropenem 1 gm in 100 mls @ 33.333 mls/hr 11/17/22 18:00 Merrem IV Q8H SHANE Magnesium Sulfate 4 gm in 100 mls @ 25 mls/hr 11/17/22 12:37 11/17/22 13:17 Magnesium Sulf 4 Gm-*Swfi* IV 11/17/22 16:36 25 mls/hr ONCE ONE Administration Lidocaine HCl 10 ml 11/09/22 13:55 Lidocaine 1% Pf 5 Ml Inj.Zara INFILTRATN ONCE PRN Pain Magnesium Hydroxide 30 ml 11/07/22 07:45 11/16/22 08:46 Magnesium Hydroxide Susp 30 Ml Udc PO 11/07/23 07:44 30 ml DAILY PRN Administration Constipation Metoprolol Tartrate 5 mg 11/07/22 05:11 11/07/22 05:25 Metoprolol Tartrate 5 Mg/5 Ml Vial IV-PUSH 5 mg Q5M PRN Administration Tachyarrhythmias Metoprolol Tartrate 12.5 mg 05/11/23 11:30 11/17/22 11:16 Metoprolol Tartrate 12.5 Mg Tablet OG-TUBE 11/17/23 11:29 12.5 mg BID SHANE Administration Nicotine 1 each 11/05/22 04:33 Nicotine Patch 21 Mg/24hr 1 Each Patch.Td24 TRANSDERML 12/16/22 09:01 DAILY PRN Nicotine Cravings Pantoprazole Sodium 40 mg 11/08/22 09:00 11/17/22 08:39 Pantoprazole 40 Mg Vial IV-PUSH 11/08/23 08:59 40 mg DAILY SHANE Administration Polyethylene Glycol 17 gm 11/14/22 08:53 11/16/22 21:13 Polyethylene Glycol 3350 17 Gm Powd.Pack OG-TUBE 11/14/23 08:52 17 gm DAILY PRN Administration Constipation Sennosides 8.8 mg 11/16/22 09:00 11/17/22 08:39 Sennosides Syrup 8.8 Mg/5 Ml Udc OG-TUBE 11/16/23 08:59 8.8 mg BID SHANE Administration Sodium Chloride 0 ml 11/05/22 06:00 11/17/22 14:34 Sodium Chloride 0.9 % 10 Ml Syringe IV-PUSH 11/05/23 05:59 10 ml QSHIFT SHANE Administration Sodium Chloride 10 ml 11/07/22 08:38 11/15/22 08:11 Sodium Chloride 0.9 % 10 Ml Syringe IV-PUSH 11/07/23 08:37 10 ml PRN PRN Administration Flush Sodium Chloride 10 ml 11/08/22 09:00 11/17/22 08:40 Sodium Chloride 0.9 % 10 Ml Vial.Pf INJECTION 11/08/23 08:59 10 ml DAILY SHANE Administration Sodium Chloride 0 ml 11/14/22 15:03 11/17/22 13:18 Sodium Chloride 0.9 % 10 Ml Syringe IV-PUSH 11/14/23 15:02 10 ml PRN PRN Administration Flush Tizanidine HCl 4 mg 11/05/22 06:40 11/06/22 23:06 Tizanidine 4 Mg Tablet PO 11/05/23 06:39 4 mg BID@0900,1400 PRN Administration Muscle Spasm Tizanidine HCl 8 mg 11/05/22 07:19 11/05/22 21:39 Tizanidine 4 Mg Tablet PO 11/05/23 07:18 8 mg HS PRN Administration Muscle Spasm A&P - Hospitalist Assessment/Plan (1) Community acquired pneumonia: (2) HTN (hypertension): (3) Acute hypoxemic respiratory failure: (4) Parainfluenza: Plan . Documented By: Shant Villegas MD 11/17/22 1507 Signed By: <Electronically signed by Shant Villegas MD> 11/17/22 [address] [facility] Work Phone: 1(230) 553-595605-11-2023 Progress note Author Reginald Arroyo [facility] November 17, 2022 10:25am Note Date/Time November 17, 2022 8:48a m [facility] [address] [place] [address] Pulmonology Progress Note Signed Patient: Lori Anton MR#: [id number] : 1965 Acct:[id number] Age/Sex: 57 / M Adm Date: 3 Loc: Room: 3P4842-2 Type: ADM IN Attending Dr: Shant Villegas MD Copies to: ~ Date of Service: 11/17/2022 Subjective Subjective Narrative: Patient is more awake on decreased sedation. He appears to be following commands. He remains persistently febrile. There were no other issues overnight per nursing staff. Exam Physical Exam Vital Signs: Temp Pulse Resp BP Pulse Ox O2 Del Method O2 Flow Rate 102.1 F H 112 H 20 138/82 95 Mechanical Ventilation 65 11/17/22 08:00 11/17/22 08:00 11/17/22 08:00 11/17/22 08:00 11/17/22 08:00 11/17/22 08:00 11/16/22 08:00 FiO2 45 11/17/22 08:00 Const General: no acute distress Nutritional Appearance: average body habitus Orientation: not alert and not awake HEENT Head: normal to inspection, normocephalic and atraumatic Ears: external ears normal Nose: external nose normal Face and sinus: normal facial exam Mouth: other (8.0 mm internal diameter endotracheal tube and orogastric tube) Eyes Eyelids: eyelids normal Sclera: sclerae normal Neck Neck: normal visual inspection and no lymphadenopathy Chest Chest palpation & inspection: normal inspection of the chest (No evidence of crepitus) Resp Auscultation: clear to auscultation bilaterally, diminished lung sounds, no rales, no rhonchi and no wheezes Cardio Rate: regular rate Rhythm: regular rhythm Heart Sounds: S1 normal, S2 normal, no gallops, no murmurs and no rubs GI Inspection: normal to inspection Palpation: soft and nontender Auscultation: hypoactive bowel sounds Rectal Exam: deferred General: deferred Skin General: no rashes or lesions noted (Warm and dry) Extrem General: no pedal edema Objective Intake and Output I&O - Last 24 Hours: Intake & Output 11/16/22 11/17/22 11/17/22 23:59 07:59 15:59 Intake Total 2080 / 3440 810 / 810 Output Total 1056 / 2233 1031 / 1031 0 / 1031 Balance 1024 / 1207 -221 / -221 0 / -221 Weight 101.5 kg Labs 11/17/22 04:15 11/17/22 04:15 Microbiology Micro: Microbiology 11/14/22 14:19 Bronchial Culture - Final Bronchial Washings - Bilateral Corynebacterium striatum group Imaging and Cardiology CT scan - chest: Status: image reviewed by me Additional comments: Date of Service: 11/16/22 CT/CT angio chest PE protocol: persistant hypoxia/vent/r/o PE ? CT ANGIOGRAM OF THE CHEST, PULMONARY EMBOLISM PROTOCOL: CLINICAL INFORMATION: Hypoxia, pneumonia. COMPARISON: Chest 11/16/2022 TECHNIQUE:? Following intravenous injection of contrast CT scans of the chest were obtained using pulmonary embolism protocol.? Coronal and sagittal reconstructed images, as well as volume rendered CT pulmonary angiographic images were also submitted.The CT exam was performed using one or more of the followingdose reduction techniques: Automated exposure control, adjustment of the MA and/or Kv according to patient size, or use of the iterative reconstruction technique. FINDINGS: Pulmonary Vasculature: Contrast bolus is adequate for evaluation of pulmonary embolism.? Pulmonary trunk appears nondilated.? No filling defects are identified to suggest pulmonary embolism. Mediastinum : ET and enteric tubes are in satisfactory positions. Right-sided IJline is identified with its tip in the SVC right atrial junction. Thoracic aortaappears normal in caliber. No pleural effusion. No lymphadenopathy. Lungs:? Right-sided chest tubes in place. No pneumothorax is seen. Consolidativechanges involving the right lower lobe and lesser degree left lower lobe. Areas of groundglass are noted involving the lingula. Consolidative changes are also noted involving the right middle lobe with a cavitary components measuring 2.8 x2.1 cm in greatest axial dimensions. Upper abdomen: No acute findings Soft tissue/bones: Soft tissues surrounding the chest wall demonstrate presumed postsurgical changes involving the right chest wall. Osseous structures demonstrate degenerative change. CT/CT angio chest PE protocol IMPRESSION: ? 1.? NO EVIDENCE OF ACUTE PULMONARY EMBOLISM . 2.? RIGHT-SIDED CHEST TUBE IN PLACE WITHOUT PNEUMOTHORAX. 3.? TUBES IN SATISFACTORY POSITIONS. RIGHT-SIDED IJ LINE IS IDENTIFIED WITH TIP WITHIN THE SVC RIGHT ATRIAL JUNCTION. 4.? CONSOLIDATIVE CHANGES INVOLVING THE LOWER LOBES WELL RIGHT MIDDLE LOBEWITH A CAVITARY COMPONENTS INVOLVING THE RIGHT MIDDLE LOBE CONSOLIDATION. AN ATYPICAL INFECTIOUS PROCESS CANNOT BE EXCLUDED. THERE IS ALSO ASSOCIATED GROUNDGLASS INVOLVING THE LEFT UPPER LOBE POSSIBLY INFECTIOUS IN NATURE WELL.REPEAT CT AFTER THERAPY IS RECOMMENDED TO ENSURE RESOLUTION. ? Chest x-ray: Status: image reviewed by me Additional comments: Date of Service: 11/17/22 XR/XR chest 1V portable: intubation PORTABLE AP SEMIERECT CHEST 0520 hours CLINICAL HISTORY: Respiratory distress on ventilator COMPARISON: 11/16/2022 Tubes and lines are unchanged from the comparison. There is continued pleural-parenchymal opacity on the right. There may be minor atelectasis at the left base related to incompleteinspiration. There is no developing pneumothorax. The cardiac and mediastinal contours are stable. The bony structures are intact. XR/XR chest 1V portable IMPRESSION: NO SIGNIFICANT INTERVAL CHANGE FROM THE PRIOR. Additional Results Results Comments: 11/17/22 04:36 ABG pH 7.52 H ABG pCO2 42.2 ABG pO2 54.5 L ABG HCO3 33.7 H ABG Total CO2 35.0 H ABG O2 Saturation 89.2 L ABG O2 Content 5.9 L ABG Base Excess 9.9 H 20/500/30/10 Assessment/Plan Assessment/Plan (1) Acute hypoxemic respiratory failure: (2) Tension pneumothorax: (3) Hilar lymphadenopathy: (4) Atelectasis: (5) Community acquired pneumonia: (6) Nicotine dependence: Plan Hospital day #12, ventilator day #10, right subclavian central venous catheter day #3, right anterior chest tube day #8 for patient with community acquired pneumonia and tension pneumothorax now resolved with chest tube insertion. Patient continues with worsening leukocytosis and occasional fever with antibiotics having been discontinued after completing course. Case was discussed with Dr. Holt. Given persistent fever, it is certainly reasonable toresume antibiotics with choice of linezolid and meropenem per infectious diseasespecialist. In my opinion, CT scan does not show obvious opportunity for further drainage. Patient's anterior chest tube site looks clean and given prior issues with pneumothorax and continued higher levels of PEEP we will maintain that chest tube at least for the present time. Continue supportive care. We will try to promote regular evacuation of the colon. Documented By: Reginald Arroyo MD [id number] Signed By: <Electronically signed by MD Reginald Arroyo> 11/17/[address] [place] [address] Ctr Work Phone: 1(850) 410-254305-10-2023 Progress note Author Shant Villegas [facility] November 16, 2022 3:46pm Note Date/Time November 16, 2022 3:35p m [facility] [address] [place] [address] Hospitalist Progress Note Signed Patient: Lori Anton MR#: [id number] : 1965 Acct:[id number] Age/Sex: 57 / M Adm Date: 3 Loc: Room: 5E5361-7 Type: ADM IN Attending Dr: Shant Villegas MD Copies to: ~ Date of Service: 11/16/2022 Subjective Subjective Narrative: Patient examined at bedside with present in the room. He remains intubatedand sedated. He had a CTA chest done earlier today which is negative for PE butshowing consolidative changes involving the lower lobes as well as right middle lobe with cavitary component involving right middle lobe consolidation. He did have a temp of 100.9 this morning. Assessment And Plan 57M with PMH of HTN, DJD, Tobacco abuse, Depression who p/w ever, cough, and right-sided chest pain to the [facility] ED and Transferred for the evaluation and treatment of Bacterial pneumonia Bacterial pneumonia/Parainfluenza Infection Since patient remains intubated and had a spike of fever this morning. CTA chest obtained earlier today showed consolidative changes involving lower lobes and cavitary component in the right middle lobe. Patient being followed by pulmonary service and infectious disease and will defer further management to [facility] pulmonary service. Currently is off antibiotics. He has been recultured today with no growth from bronchial washing so far. He continues to have leukocytosis. Acute respiratory failure with hypercapnia He remains intubated. Taper oxygen as tolerated. Respiratory failure being managed by pulmonary service. Right pneumothorax s/p chest tube placement x1. Right axillary chest tube has been removed yesterday. Discussed with his regarding his critical condition due to respiratory failure with persistent leukocytosis. Exam Physical Exam Vital Signs: Temp Pulse Resp BP Pulse Ox O2 Del Method O2 Flow Rate 99.5 F H 82 24 97/57 L 98 Mechanical Ventilation 65 11/16/22 12:00 11/16/22 15:00 11/16/22 15:00 11/16/22 15:00 11/16/22 15:00 11/16/22 15:00 11/16/22 08:00 FiO2 50 11/16/22 15:00 Const Other: Intubated and sedated Resp Effort & Inspection: normal respiratory effort Auscultation: diminished lung sounds, no rales, no rhonchi and no wheezes Cardio Rate: regular rate Rhythm: regular rhythm Heart Sounds: S1 normal and S2 normal GI Palpation: soft, not firm and no guarding Neuro Other: Sedated and intubated Extrem General: no clubbing, cyanosis or edema Objective Lab Results 11/16/22 05:30 11/16/22 05:30 Microbiology Results Microbiology 11/14/22 14:19 Bronchial Washings - Bilateral Bronchial Culture - Final Corynebacterium striatum group 11/14/22 14:19 Bronchial Washings - Bilateral AFB Smear Concentration - Final 11/14/22 14:19 Bronchial Washings - Bilateral Acid Fast Bacilli Smear - Final ABG Interpretation ABG results: 11/16/22 04:33 ABG pH 7.52 H ABG pCO2 43.6 ABG pO2 71.3 L ABG HCO3 34.8 H ABG Total CO2 36.1 H ABG O2 Saturation 94.7 L ABG O2 Content 6.1 L ABG Base Excess 10.9 H Meds Allergies and Active Meds Allergies erythromycin base Allergy (Verified 11/05/22 04:16) Rash Penicillins Allergy (Verified 11/05/22 04:16) Anaphylaxis Active Meds: Active Medications Generic Name Dose Route Start Last Admin Trade Name Freq PRN Reason Stop Dose Admin Acetaminophen 1,000 mg 11/05/22 03:36 11/05/22 21:39 Acetaminophen 500 Mg Tablet PO 11/05/23 03:35 1,000 mg Q6HR PRN Administration Pain Scale 1 - 3 or fever Albuterol 6 puff 11/07/22 12:00 11/16/22 13:20 Albuterol Hfa 200 Puff/18 Gm Inhaler VENT 11/07/23 11:59 6 puff Q6HR SHANE Administration Amlodipine Besylate 10 mg 11/07/22 06:00 11/08/22 07:00 Amlodipine 10 Mg Tablet PO 11/05/23 08:59 10 mg DAILY@0600 SHANE Administration Buprenorphine HCl 2 mg 11/07/22 06:00 11/07/22 06:38 Buprenorphine Hcl 2 Mg Tab.Subl SUBLINGUAL 05/06/23 05:59 2 mg BID@0600,1800 SHANE Administration Carvedilol 12.5 mg 11/06/22 21:00 11/08/22 07:00 Carvedilol 12.5 Mg Tablet PO 11/06/23 20:59 12.5 mg BID@0600,1800 SHANE Administration Chlorhexidine Gluconate 15 ml 11/07/22 09:10 11/16/22 08:46 Chlorhexidine Gluconate 0.12% 15 Ml Udc MUCOUS MEM 11/07/23 09:09 15 ml BID SHANE Administration Docusate Sodium 100 mg 11/07/22 09:00 11/16/22 08:46 Docusate Liquid 100 Mg/10 Ml Udc OG-TUBE 11/07/23 08:59 100 mg BID SHANE Administration Enoxaparin Sodium 40 mg 11/06/22 10:00 11/16/22 09:26 Enoxaparin 40 Mg/0.4 Ml Syringe SUBCUT 11/06/23 09:59 40 mg DAILY@1000 SHANE Administration Fluoxetine HCl 40 mg 11/07/22 22:00 11/15/22 22:31 Fluoxetine Soln 20 Mg/5 Ml PO 11/07/23 21:59 40 mg HS SHANE Administration Fluoxetine HCl 20 mg 11/08/22 06:00 11/16/22 05:39 Fluoxetine Soln 20 Mg/5 Ml PO 11/08/23 05:59 20 mg DAILY@0600 SHANE Administration Heparin Sodium (Porcine) 0 unit 11/14/22 22:00 11/16/22 14:21 Heparin-Lock 500 Unit/5 Ml Syringe IV-PUSH 11/14/23 21:59 500 unit QSHIFT SHANE Administration Fentanyl 1,000 mcg in 100 mls @ 2.5 mls/hr 11/07/22 07:45 11/16/22 11:46 Fentanyl 1,000 Mcg/100 Ml D5w IV 175 mcg/hr .Q24H SHANE 17.5 mls/hr Administration Protocol 25 MCG/HR Propofol 1,000 mg in 100 mls @ 12.6 mls/hr 11/07/22 08:00 11/16/22 14:37 Diprivan IV 11/07/23 07:59 10 mcg/kg/min .Q7H57M SHANE 6.3 mls/hr Titration Protocol 20 MCG/KG/MIN Midazolam HCl 100 mg in 100 mls @ 1 mls/hr 11/09/22 11:00 11/16/22 11:47 Versed IV 05/08/23 10:59 4 mg/hr .Q24H SHANE 4 mls/hr Titration Protocol 1 MG/HR Sodium Chloride 1,000 mls @ 150 mls/hr 11/16/22 09:00 11/16/22 09:36 0.45% Sodium Chloride 1,000 Ml IV 11/16/22 15:39 150 mls/hr .Q6H40M SHANE Administration Lidocaine HCl 10 ml 11/09/22 13:55 Lidocaine 1% Pf 5 Ml Inj.Zara INFILTRATN ONCE PRN Pain Lisinopril 20 mg 11/07/22 06:00 11/08/22 07:00 Lisinopril 20 Mg Tablet PO 11/06/23 08:59 20 mg DAILY@0600 SHANE Administration Magnesium Hydroxide 30 ml 11/07/22 07:45 11/16/22 08:46 Magnesium Hydroxide Susp 30 Ml Udc PO 11/07/23 07:44 30 ml DAILY PRN Administration Constipation Metoclopramide HCl 10 mg 11/14/22 00:45 11/16/22 09:26 Metoclopramide 10 Mg/2 Ml Vial IV-PUSH 10 mg Q6HR PRN Administration Hiccups Metoprolol Tartrate 5 mg 11/07/22 05:11 11/07/22 05:25 Metoprolol Tartrate 5 Mg/5 Ml Vial IV-PUSH 5 mg Q5M PRN Administration Tachyarrhythmias Nicotine 1 each 11/05/22 04:33 Nicotine Patch 21 Mg/24hr 1 Each Patch.Td24 TRANSDERML 12/16/22 09:01 DAILY PRN Nicotine Cravings Pantoprazole Sodium 40 mg 11/08/22 09:00 11/16/22 08:46 Pantoprazole 40 Mg Vial IV-PUSH 11/08/23 08:59 40 mg DAILY SHANE Administration Polyethylene Glycol 17 gm 11/14/22 08:53 11/15/22 18:26 Polyethylene Glycol 3350 17 Gm Powd.Pack OG-TUBE 11/14/23 08:52 17 gm DAILY PRN Administration Constipation Sennosides 8.8 mg 11/16/22 09:00 11/16/22 09:26 Sennosides Syrup 8.8 Mg/5 Ml Udc OG-TUBE 11/16/23 08:59 Not Given BID SHANE Sodium Chloride 0 ml 11/05/22 06:00 11/16/22 14:21 Sodium Chloride 0.9 % 10 Ml Syringe IV-PUSH 11/05/23 05:59 10 ml QSHIFT SHANE Administration Sodium Chloride 10 ml 11/07/22 08:38 11/15/22 08:11 Sodium Chloride 0.9 % 10 Ml Syringe IV-PUSH 11/07/23 08:37 10 ml PRN PRN Administration Flush Sodium Chloride 10 ml 11/08/22 09:00 11/16/22 08:46 Sodium Chloride 0.9 % 10 Ml Vial.Pf INJECTION 11/08/23 08:59 10 ml DAILY SHANE Administration Sodium Chloride 0 ml 11/14/22 15:03 11/16/22 09:27 Sodium Chloride 0.9 % 10 Ml Syringe IV-PUSH 11/14/23 15:02 10 ml PRN PRN Administration Flush Tizanidine HCl 4 mg 11/05/22 06:40 11/06/22 23:06 Tizanidine 4 Mg Tablet PO 11/05/23 06:39 4 mg BID@0900,1400 PRN Administration Muscle Spasm Tizanidine HCl 8 mg 11/05/22 07:19 11/05/22 21:39 Tizanidine 4 Mg Tablet PO 11/05/23 07:18 8 mg HS PRN Administration Muscle Spasm A&P - Hospitalist Assessment/Plan (1) Community acquired pneumonia: (2) HTN (hypertension): (3) Acute hypoxemic respiratory failure: (4) Parainfluenza: Plan . Documented By: Shant Villegas MD 11/16/22 1530 Signed By: <Electronically signed by Shant Villegas MD> 11/16/22 [facility] Work Phone: [phone]) [phone] Progress note Author Reginald Arroyo [facility] November 16, 2022 11:03am Note Date/Time November 16, 2022 8:20a m [facility] [address] [place] [address] Pulmonology Progress Note Signed Patient: Lori Anton MR#: [id number] : 1965 Acct:[id number] Age/Sex: 57 / M Adm Date: 3 Loc: Room: [address] [place] [address] Type: ADM IN Attending Dr: Shant Villegas MD Copies to: ~ Date of Service: 11/16/2022 Subjective Subjective Narrative: The patient remains intubated and sedated with slight decrease in oxygen requirements. He has had recurrent fever and is noted to have increasing leukocytosis. Otherwise, there were no issues overnight per nursing staff with patient continued to have some hiccups. Exam Physical Exam Vital Signs: Temp Pulse Resp BP Pulse Ox O2 Del Method O2 Flow Rate 98.4 F 84 20 91/53 L 95 Mechanical Ventilation 65 11/16/22 04:00 11/16/22 06:00 11/16/22 06:00 11/16/22 06:00 11/16/22 06:00 11/16/22 06:00 11/07/22 00:00 FiO2 50 11/16/22 06:00 Const General: no acute distress Nutritional Appearance: average body habitus Orientation: not alert and not awake HEENT Head: normal to inspection, normocephalic and atraumatic Ears: external ears normal Nose: external nose normal Face and sinus: normal facial exam Mouth: other (8.0 mm internal diameter endotracheal tube and orogastric tube) Eyes Eyelids: eyelids normal Sclera: sclerae normal Neck Neck: normal visual inspection and no lymphadenopathy Chest Chest palpation & inspection: normal inspection of the chest (No evidence of crepitus) Resp Auscultation: clear to auscultation bilaterally, diminished lung sounds, no rales, no rhonchi and no wheezes Cardio Rate: regular rate Rhythm: regular rhythm Heart Sounds: S1 normal, S2 normal, no gallops, no murmurs and no rubs GI Inspection: normal to inspection Palpation: soft and nontender Auscultation: hypoactive bowel sounds Rectal Exam: deferred General: deferred Skin General: no rashes or lesions noted (Warm and dry) Extrem General: no pedal edema Objective Intake and Output I&O - Last 24 Hours: Intake & Output 11/15/22 11/16/22 11/16/22 23:59 07:59 15:59 Intake Total 665 / 2335 680 / 680 Output Total 550 / 1875 500 / 500 Balance 115 / 460 180 / 180 Weight 103.9 kg Labs 11/16/22 05:30 11/16/22 05:30 Microbiology Micro: Microbiology 11/14/22 14:19 AFB Smear Concentration - Final Bronchial Washings - Bilateral Acid Fast Bacilli Smear - Final 11/14/22 14:19 Bronchial Culture - Preliminary Bronchial Washings - Bilateral Corynebacterium striatum group 11/10/22 11:00 Blood Culture - Final Blood - Central line NO GROWTH 5 DAYS 11/10/22 10:16 Blood Culture - Final Blood - Left Antecubital NO GROWTH 5 DAYS Imaging and Cardiology Chest x-ray: Status: image reviewed by me Additional comments: Radiologist interpretation is not available for review at the time my evaluation. Endotracheal tube, right subclavian central venous catheter, and right anterior chest tube are visualized with removal of the right axillary chest tube. There is perhaps slightly increased opacity in the right lung with actually some clearing of opacity in the left lung base compared to prior. Additional Results Results Comments: 11/16/22 04:33 ABG pH 7.52 H ABG pCO2 43.6 ABG pO2 71.3 L ABG HCO3 34.8 H ABG Total CO2 36.1 H ABG O2 Saturation 94.7 L ABG O2 Content 6.1 L ABG Base Excess 10.9 H 20/500/50/10 Assessment/Plan Assessment/Plan (1) Acute hypoxemic respiratory failure: (2) Tension pneumothorax: (3) Hilar lymphadenopathy: (4) Atelectasis: (5) Community acquired pneumonia: (6) Nicotine dependence: Plan Hospital day #11, ventilator day #9, right subclavian central venous catheter day #2, right anterior chest tube day #7 for patient with community acquired pneumonia and tension pneumothorax now resolved with chest tube insertion. Patient continues with worsening leukocytosis and occasional fever with antibiotics having been discontinued after completing course. We will gently hydrate the patient and proceed with CT arteriogram which will evaluate for pulmonary embolism (less likely) but also evaluate pleural space and lung tissuefor development of abscess or complicated parapneumonic effusion which may require further drainage. In the meantime we will reculture the patient and observe off antibiotics and may broaden antibiotics depending on the patient's course. We will otherwise continue supportive care. Documented By: Reginald Arroyo MD 3 [id number] Signed By: <Electronically signed by MD Reginald Arroyo> 11/16/22 [facility] Work Phone: [phone]) [phone] Progress note Author Sanjay Holt [facility] November 16, 2022 9:24am Note Date/Time November 16, 2022 9:05a [facility] [address] [place] [address] Infect. Disease Progress Note Signed Patient: Lori Anton MR#: [id number] : 1965 Acct:[id number] Age/Sex: 57 / M Adm Date: 3 Loc: Room: [address] [place] [address] Type: ADM IN Attending Dr: Shant Villegas MD Copies to: ~ Date of Service: 11/16/2022 Subjective Interval history: Patient remains on the ventilator. Febrile currently 100.9 for his nurse. Overnight no fevers documented Exam Physical Exam Vital Signs: Temp Pulse Resp BP Pulse Ox O2 Del Method O2 Flow Rate 98.4 F 96 H 25 H 101/67 95 Mechanical Ventilation 65 11/16/22 04:00 11/16/22 08:48 11/16/22 08:22 11/16/22 08:48 11/16/22 06:00 11/16/22 06:00 11/07/22 00:00 FiO2 45 11/16/22 08:22 Const General: ill appearing and other (sedated on vent) Orientation: other (sedated) HEENT Head: normal to inspection Mouth: other (ETT) Eyes General: appearance normal, both eyes and all related structures Neck Neck: normal visual inspection (11/07 R IJ CVC) Chest Chest palpation & inspection: abnormal inspection of the chest (chest tubes on right) Resp Effort & Inspection: other (on vent) Auscultation: diminished lung sounds Cardio Rate: regular rate GI Palpation: soft and nontender Auscultation: normal bowel sounds Skin General: other (few blisters R side of abd/thigh likely from chest tube) Neuro General: other (sedated) Extrem General: normal to inspection and edema (improved) Objective Labs CBC/BMP: CBC, BMP 11/15/22 11/16/22 11/16/22 05:20 05:30 05:30 Corrected WBC 25.0 H 24.2 H Uncorrected WBC Count 25.0 H 24.2 H RBC 3.39 L 2.95 L Hgb 10.1 L 8.6 L Hct 30.3 L 26.4 L Plt Count 381 369 Sodium 131 L Potassium 4.3 Chloride 90 L Carbon Dioxide 36.7 H Anion Gap 8.6 BUN 32 H Creatinine 0.65 L Calcium 7.5 L Labs: 11/16/22 05:30 BUN 32 H Creatinine 0.65 L Microbiology Microbiology: Microbiology - Results from entire visit 11/14/22 14:19 Bronchial Washings - Bilateral AFB Smear Concentration - Final 11/14/22 14:19 Bronchial Washings - Bilateral Acid Fast Bacilli Smear - Final 11/14/22 14:19 Bronchial Washings - Bilateral Bronchial Culture - Preliminary Corynebacterium striatum group 11/10/22 11:00 Blood - Central line Blood Culture - Final NO GROWTH 5 DAYS 11/10/22 10:16 Blood - Left Antecubital Blood Culture - Final NO GROWTH 5 DAYS 11/14/22 14:19 Bronchial Washings - Bilateral Fungal Smear - Final 11/14/22 14:19 Bronchial Washings - Bilateral Gram Stain - Final 11/05/22 05:52 Blood - Right Hand Blood Culture - Final NO GROWTH 5 DAYS 11/05/22 05:52 Blood - Left Antecubital Blood Culture - Final NO GROWTH 5 DAYS 11/05/22 10:30 Sputum - Expectorated Aerobic Culture - Final Lyndsay albicans 11/05/22 10:30 Sputum - Expectorated Gram Stain - Final 11/05/22 09:40 Nasopharyngeal Respiratory Panel (PCR) - Final Allergies and Medications Allergies and Active Meds Allergies erythromycin base Allergy (Verified 11/05/22 04:16) Rash Penicillins Allergy (Verified 11/05/22 04:16) Anaphylaxis Active Medications Acetaminophen (Acetaminophen 500 Mg Tablet) 1,000 mg PO Q6HR PRN PRN Reason: Pain Scale 1 - 3 or fever Stop: 11/05/23 03:35 Last Admin: 11/05/22 21:39 Dose: 1,000 mg Albuterol (Albuterol Hfa 200 Puff/18 Gm Inhaler) 6 puff VENT Q6HR [facility] Stop: 11/07/23 11:59 Last Admin: 11/16/22 05:08 Dose: 6 puff Amlodipine Besylate (Amlodipine 10 Mg Tablet) 10 mg PO DAILY@0600 [facility] Stop: 11/05/23 08:59 Last Admin: 11/08/22 07:00 Dose: 10 mg Buprenorphine HCl (Buprenorphine Hcl 2 Mg Tab.Subl) 2 mg SUBLINGUAL BID@0600,1800 [facility] Stop: 05/06/23 05:59 Last Admin: 11/07/22 06:38 Dose: 2 mg Carvedilol (Carvedilol 12.5 Mg Tablet) 12.5 mg PO BID@0600,1800 [facility] Stop: 11/06/23 20:59 Last Admin: 11/08/22 07:00 Dose: 12.5 mg Chlorhexidine Gluconate (Chlorhexidine Gluconate 0.12% 15 Ml Udc) 15 ml MUCOUS MEM BID [facility] Stop: 11/07/23 09:09 Last Admin: 11/16/22 08:46 Dose: 15 ml Docusate Sodium (Docusate Liquid 100 Mg/10 Ml Udc) 100 mg OG-TUBE BID [facility] Stop: 11/07/23 08:59 Last Admin: 11/16/22 08:46 Dose: 100 mg Enoxaparin Sodium (Enoxaparin 40 Mg/0.4 Ml Syringe) 40 mg SUBCUT DAILY@1000 [facility] Stop: 11/06/23 09:59 Last Admin: 11/15/22 10:16 Dose: 40 mg Fluoxetine HCl (Fluoxetine Soln 20 Mg/5 Ml) 40 mg PO HS [facility] Stop: 11/07/23 21:59 Last Admin: 11/15/22 22:31 Dose: 40 mg Fluoxetine HCl (Fluoxetine Soln 20 Mg/5 Ml) 20 mg PO DAILY@0600 [facility] Stop: 11/08/23 05:59 Last Admin: 11/16/22 05:39 Dose: 20 mg Heparin Sodium (Porcine) (Heparin-Lock 500 Unit/5 Ml Syringe) 0 unit IV-PUSH QSHIFT [facility] Stop: 11/14/23 21:59 Last Admin: 11/16/22 05:47 Dose: 1,000 unit Fentanyl (Fentanyl 1,000 Mcg/100 Ml D5w) 1,000 mcg in 100 mls @ 2.5 mls/hr IV .Q24H [facility]; Protocol Last Admin: 11/15/22 19:06 Dose: 200 mcg/hr, 20 mls/hr Propofol (Diprivan) 1,000 mg in 100 mls @ 12.6 mls/hr IV .Q7H57M [facility]; Protocol Stop: 11/07/23 07:59 Last Admin: 11/16/22 08:47 Dose: 20 mcg/kg/min, 12.6 mls/hr Midazolam HCl (Versed) 100 mg in 100 mls @ 1 mls/hr IV .Q24H [facility]; Protocol Stop: 05/08/23 10:59 Last Titration: 11/16/22 08:48 Dose: 5 mg/hr, 5 mls/hr Sodium Chloride (0.45% Sodium Chloride 1,000 Ml) 1,000 mls @ 150 mls/hr IV .Q6H40M [facility] Stop: 11/16/22 15:39 Lidocaine HCl (Lidocaine 1% Pf 5 Ml Inj.Zara) 10 ml INFILTRATN ONCE PRN PRN Reason: Pain Lisinopril (Lisinopril 20 Mg Tablet) 20 mg PO DAILY@0600 [facility] Stop: 11/06/23 08:59 Last Admin: 11/08/22 07:00 Dose: 20 mg Magnesium Hydroxide (Magnesium Hydroxide Susp 30 Ml Udc) 30 ml PO DAILY PRN PRN Reason: Constipation Stop: 11/07/23 07:44 Last Admin: 11/16/22 08:46 Dose: 30 ml Metoclopramide HCl (Metoclopramide 10 Mg/2 Ml Vial) 10 mg IV-PUSH Q6HR PRN PRN Reason: Hiccups Last Admin: 11/15/22 05:48 Dose: 10 mg Metoprolol Tartrate (Metoprolol Tartrate 5 Mg/5 Ml Vial) 5 mg IV-PUSH Q5M PRN PRN Reason: Tachyarrhythmias Last Admin: 11/07/22 05:25 Dose: 5 mg Nicotine (Nicotine Patch 21 Mg/24hr 1 Each Patch.Td24) 1 each TRANSDERML DAILY PRN PRN Reason: Nicotine Cravings Stop: 12/16/22 09:01 Pantoprazole Sodium (Pantoprazole 40 Mg Vial) 40 mg IV-PUSH DAILY [facility] Stop: 11/08/23 08:59 Last Admin: 11/16/22 08:46 Dose: 40 mg Polyethylene Glycol (Polyethylene Glycol 3350 17 Gm Powd.Pack) 17 gm OG-TUBE DAILY PRN PRN Reason: Constipation Stop: 11/14/23 08:52 Last Admin: 11/15/22 18:26 Dose: 17 gm Sennosides (Sennosides Syrup 8.8 Mg/5 Ml Udc) 8.8 mg OG-TUBE BID [facility] Stop: 11/16/23 08:59 Sodium Chloride (Sodium Chloride 0.9 % 10 Ml Syringe) 0 ml IV-PUSH QSHIFT [facility] Stop: 11/05/23 05:59 Last Admin: 11/16/22 05:47 Dose: 20 ml Sodium Chloride (Sodium Chloride 0.9 % 10 Ml Syringe) 10 ml IV-PUSH PRN PRN PRN Reason: Flush Stop: 11/07/23 08:37 Last Admin: 11/15/22 08:11 Dose: 10 ml Sodium Chloride (Sodium Chloride 0.9 % 10 Ml Vial.Pf) 10 ml INJECTION DAILY [facility] Stop: 11/08/23 08:59 Last Admin: 11/16/22 08:46 Dose: 10 ml Sodium Chloride (Sodium Chloride 0.9 % 10 Ml Syringe) 0 ml IV-PUSH PRN PRN PRN Reason: Flush Stop: 11/14/23 15:02 Tizanidine HCl (Tizanidine 4 Mg Tablet) 4 mg PO BID@0900,1400 PRN PRN Reason: Muscle Spasm Stop: 11/05/23 06:39 Last Admin: 11/06/22 23:06 Dose: 4 mg Tizanidine HCl (Tizanidine 4 Mg Tablet) 8 mg PO HS PRN PRN Reason: Muscle Spasm Stop: 11/05/23 07:18 Last Admin: 11/05/22 21:39 Dose: 8 mg A&P - Infectious Disease Assessment/Plan (1) Fever: Code(s): R50.9 - Fever, unspecified Status: Acute (2) Acute hypoxemic respiratory failure: Code(s): J96.01 - Acute respiratory failure with hypoxia Status: Acute (3) Parainfluenza: Code(s): B34.8 - Other viral infections of unspecified site Status: Acute (4) Community acquired pneumonia: Code(s): J18.9 - Pneumonia, unspecified organism Status: Acute Plan Patient finished 10 days of Levaquin and clindamycin. Intermittent fevers continue. Bronch with corynebacterium growing from culture. I feel this is colonization. AFB smear and fungal smear negative. CT scan going to be repeated today. Patient's white count remains elevated. On admission respiratory PCR panel at [place] without targeted pathogen but parainfluenza 3 virus targeted here. Legionella urine antigen negative, Legionella antibodies negative. Urine strep antigen negative. HIV negative. At this time he is off antibiotics and has been for only a day. Documented By: Sanjay Holt MD 11/16/2258 Signed By: <Electronically signed by MD Sanjay Holt> 11/16/2224 [facility] Work Phone: 1(266) 482-870205-09-2023 Progress note Author Shant Villegas [facility] November 15, 2022 2:30pm Note Date/Time November 15, 2022 2:30pm [facility] [address] [place] [address] Hospitalist Progress Note Signed Patient: Lori Anton MR#: [id number] : 1965 Acct:[id number] Age/Sex: 57 / M Adm Date: 3 Loc: Room: [address] [place] [address] Type: ADM IN Attending Dr: Shant Villegas MD Copies to: ~ Date of Service: 11/15/2022 Subjective Subjective Narrative: Patient intubated and sedated with propofol, fentanyl and Versed drips. PEEP of10 with 70% FiO2. Yesterday underwent bronchoscopy with suctioning of bronchialsecretions. No endobronchial lesion seen. Assessment And Plan 57M with PMH of HTN, DJD, Tobacco abuse, Depression who p/w ever, cough, and right-sided chest pain to the [facility] ED and Transferred for the evaluation and treatment of Bacterial pneumonia Bacterial pneumonia/Parainfluenza Infection Per chest CTA report done at [facility], there is evidence of 2.6 cm right hilar lymph node compressing the right lower lobe bronchus leading to right lower lobe atelectasis CT chest 11/06 shows Increasing developing ground glass and patchy regions of consolidation of the lungs. Respiratory (Upper) Panel, PCR detected Parainfluenza Virus 3. Antibiotic has been discontinued and being followed by ID. Underwent bronchoscopy yesterday with suctioning of mucous and bronchial washings have been sent. Acute respiratory failure with hypercapnia He remains intubated. Taper oxygen as tolerated. Respiratory failure being managed by pulmonary service. Right pneumothorax s/p chest tube placement x2 Exam Physical Exam Vital Signs: Temp Pulse Resp BP Pulse Ox O2 Del Method O2 Flow Rate 98.5 F 94 H 22 98/63 L 95 Mechanical Ventilation 65 11/15/22 13:00 11/15/22 13:00 11/15/22 13:00 11/15/22 13:00 11/15/22 13:00 11/15/22 13:00 11/07/22 00:00 FiO2 65 11/15/22 13:00 Const Other: Intubated and sedated Resp Effort & Inspection: normal respiratory effort Auscultation: diminished lung sounds, no rales, no rhonchi and no wheezes Cardio Rate: regular rate Rhythm: regular rhythm Heart Sounds: S1 normal and S2 normal GI Palpation: soft, not firm and no guarding Neuro Other: Sedated and intubated Extrem General: no clubbing, cyanosis or edema Objective Lab Results 11/15/22 05:20 11/15/22 05:20 Microbiology Results Microbiology 11/14/22 14:19 Bronchial Washings - Bilateral AFB Smear Concentration - Final 11/14/22 14:19 Bronchial Washings - Bilateral Acid Fast Bacilli Smear - Final 11/14/22 14:19 Bronchial Washings - Bilateral Bronchial Culture - Preliminary Corynebacterium striatum group 11/10/22 11:00 Blood - Central line Blood Culture - Final NO GROWTH 5 DAYS 11/10/22 10:16 Blood - Left Antecubital Blood Culture - Final NO GROWTH 5 DAYS 11/14/22 14:19 Bronchial Washings - Bilateral Fungal Smear - Final 11/14/22 14:19 Bronchial Washings - Bilateral Gram Stain - Final ABG Interpretation ABG results: 11/15/22 05:35 ABG pH 7.49 H ABG pCO2 45.9 H ABG pO2 92.1 ABG HCO3 34.0 H ABG Total CO2 35.4 H ABG O2 Saturation 97.2 ABG O2 Content 7.0 ABG Base Excess 9.5 H Meds Allergies and Active Meds Allergies erythromycin base Allergy (Verified 11/05/22 04:16) Rash Penicillins Allergy (Verified 11/05/22 04:16) Anaphylaxis Active Meds: Active Medications Generic Name Dose Route Start Last Admin Trade Name Freq PRN Reason Stop Dose Admin Acetaminophen 1,000 mg 11/05/22 03:36 11/05/22 21:39 Acetaminophen 500 Mg Tablet PO 11/05/23 03:35 1,000 mg Q6HR PRN Administration Pain Scale 1 - 3 or fever Albuterol 2.5 mg 11/05/22 03:36 Albuterol Neb 2.5 Mg/3 Ml Vial.Neb INHALATION 11/05/23 03:35 Q3H PRN Cough/Wheeze Albuterol 6 puff 11/07/22 12:00 11/15/22 13:05 Albuterol Hfa 200 Puff/18 Gm Inhaler VENT 11/07/23 11:59 6 puff Q6HR SHANE Administration Albuterol/Ipratropium 3 ml 11/05/22 08:00 11/07/22 09:05 Ipratropium/Albuterol 0.5-3 Mg 3 Ml Ampul.Neb INHALATION 11/05/23 07:59 NotGiven QID.RESP SHANE Amlodipine Besylate 10 mg 11/07/22 06:00 11/08/22 07:00 Amlodipine 10 Mg Tablet PO 11/05/23 08:59 10 mg DAILY@0600 SHANE Administration Budesonide 0.5 mg 11/05/22 11:40 11/06/22 20:43 Budesonide 0.5 Mg/2 Ml Ampul.Neb INHALATION 11/05/23 11:39 0.5 mg BID SHANE Administration Buprenorphine HCl 2 mg 11/07/22 06:00 11/07/22 06:38 Buprenorphine Hcl 2 Mg Tab.Subl SUBLINGUAL 05/06/23 05:59 2 mg BID@0600,1800 SHANE Administration Carvedilol 12.5 mg 11/06/22 21:00 11/08/22 07:00 Carvedilol 12.5 Mg Tablet PO 11/06/23 20:59 12.5 mg BID@0600,1800 SHANE Administration Chlorhexidine Gluconate 15 ml 11/07/22 09:10 11/15/22 08:10 Chlorhexidine Gluconate 0.12% 15 Ml Udc MUCOUS MEM 11/07/23 09:09 15 ml BID SHANE Administration Docusate Sodium 100 mg 11/07/22 09:00 11/15/22 08:10 Docusate Liquid 100 Mg/10 Ml Udc OG-TUBE 11/07/23 08:59 100 mg BID SHANE Administration Enoxaparin Sodium 40 mg 11/06/22 10:00 11/15/22 10:16 Enoxaparin 40 Mg/0.4 Ml Syringe SUBCUT 11/06/23 09:59 40 mg DAILY@1000 SHANE Administration Fluoxetine HCl 40 mg 11/07/22 22:00 11/14/22 21:47 Fluoxetine Soln 20 Mg/5 Ml PO 11/07/23 21:59 40 mg HS SHANE Administration Fluoxetine HCl 20 mg 11/08/22 06:00 11/15/22 05:47 Fluoxetine Soln 20 Mg/5 Ml PO 11/08/23 05:59 20 mg DAILY@0600 SHANE Administration Guaifenesin 1,200 mg 11/06/22 12:55 11/06/22 20:51 Guaifenesin 600 Mg Tab.Er.12h PO 11/06/23 12:54 1,200 mg BID SHANE Administration Heparin Sodium (Porcine) 0 unit 11/14/22 22:00 11/15/22 05:46 Heparin-Lock 500 Unit/5 Ml Syringe IV-PUSH 11/14/23 21:59 1,000 unit QSHIFT SHANE Administration Fentanyl 1,000 mcg in 100 mls @ 2.5 mls/hr 11/07/22 07:45 11/15/22 12:52 Fentanyl 1,000 Mcg/100 Ml D5w IV 200 mcg/hr .Q24H SHANE 20 mls/hr Administration Protocol 25 MCG/HR Propofol 1,000 mg in 100 mls @ 12.6 mls/hr 11/07/22 08:00 11/15/22 10:16 Diprivan IV 11/07/23 07:59 35 mcg/kg/min .Q7H57M SHANE 22.05 mls/hr Administration Protocol 20 MCG/KG/MIN Midazolam HCl 100 mg in 100 mls @ 1 mls/hr 11/09/22 11:00 11/14/22 21:46 Versed IV 05/08/23 10:59 Not Given .Q24H SHANE Protocol 1 MG/HR Lidocaine HCl 10 ml 11/09/22 13:55 Lidocaine 1% Pf 5 Ml Inj.Zara INFILTRATN ONCE PRN Pain Lisinopril 20 mg 11/07/22 06:00 11/08/22 07:00 Lisinopril 20 Mg Tablet PO 11/06/23 08:59 20 mg DAILY@0600 SHANE Administration Magnesium Hydroxide 30 ml 11/07/22 07:45 11/15/22 08:10 Magnesium Hydroxide Susp 30 Ml Udc PO 11/07/23 07:44 30 ml DAILY PRN Administration Constipation Metoclopramide HCl 10 mg 11/14/22 00:45 11/15/22 05:48 Metoclopramide 10 Mg/2 Ml Vial IV-PUSH 10 mg Q6HR PRN Administration Hiccups Metoprolol Tartrate 5 mg 11/07/22 05:11 11/07/22 05:25 Metoprolol Tartrate 5 Mg/5 Ml Vial IV-PUSH 5 mg Q5M PRN Administration Tachyarrhythmias Nicotine 1 each 11/05/22 04:33 Nicotine Patch 21 Mg/24hr 1 Each Patch.Td24 TRANSDERML 12/16/22 09:01 DAILY PRN Nicotine Cravings Pantoprazole Sodium 40 mg 11/08/22 09:00 11/15/22 08:10 Pantoprazole 40 Mg Vial IV-PUSH 11/08/23 08:59 40 mg DAILY SHANE Administration Polyethylene Glycol 17 gm 11/14/22 08:53 Polyethylene Glycol 3350 17 Gm Powd.Pack OG-TUBE 11/14/23 08:52 DAILY PRN Constipation Potassium Chloride 40 meq 11/05/22 06:41 11/05/22 08:43 Potassium Chloride Er 20 Meq Tab.Er.Prt PO 11/05/23 06:40 40 meq DAILY PRN Administration Hypokalemia Sennosides 8.8 mg 11/07/22 09:00 11/15/22 08:10 Sennosides Syrup 8.8 Mg/5 Ml Udc PO 11/07/23 08:59 8.8 mg BID SHANE Administration Sodium Chloride 0 ml 11/05/22 06:00 11/15/22 05:46 Sodium Chloride 0.9 % 10 Ml Syringe IV-PUSH 11/05/23 05:59 10 ml QSHIFT SHANE Administration Sodium Chloride 10 ml 11/07/22 08:38 11/15/22 08:11 Sodium Chloride 0.9 % 10 Ml Syringe IV-PUSH 11/07/23 08:37 10 ml PRN PRN Administration Flush Sodium Chloride 10 ml 11/08/22 09:00 11/15/22 08:10 Sodium Chloride 0.9 % 10 Ml Vial.Pf INJECTION 11/08/23 08:59 10 ml DAILY SHANE Administration Sodium Chloride 0 ml 11/14/22 15:03 Sodium Chloride 0.9 % 10 Ml Syringe IV-PUSH 11/14/23 15:02 PRN PRN Flush Tizanidine HCl 4 mg 11/05/22 06:40 11/06/22 23:06 Tizanidine 4 Mg Tablet PO 11/05/23 06:39 4 mg BID@0900,1400 PRN Administration Muscle Spasm Tizanidine HCl 8 mg 11/05/22 07:19 11/05/22 21:39 Tizanidine 4 Mg Tablet PO 11/05/23 07:18 8 mg HS PRN Administration Muscle Spasm A&P - Hospitalist Assessment/Plan (1) Community acquired pneumonia: (2) HTN (hypertension): (3) Acute hypoxemic respiratory failure: (4) Parainfluenza: Plan . Documented By: Shant Villegas MD 11/15/22 5072 Signed By: <Electronically signed by Shant Villegas MD> 11/15/22 1430 [facility] Work Phone: [phone] Progress note Author Reginald Arroyo [facility] November 15, 2022 12:14pm Note Date/Time November 15, 2022 8:22am [facility] [address] [place] [address] Pulmonology Progress Note Signed Patient: Lori Anton MR#: [id number] : 1965 Acct:[id number] Age/Sex: 57 / M Adm Date: 3 Loc: Room: [address] [place] [address] Type: ADM IN Attending Dr: Shant Villegas MD Copies to: ~ Date of Service: 11/15/2022 Subjective Subjective Narrative: Patient remains intubated and sedated with relatively increased oxygen requirements. There were no reported issues overnight per nursing staff. Exam Physical Exam Vital Signs: Temp Pulse Resp BP Pulse Ox O2 Del Method O2 Flow Rate 98.9 F 96 H 22 102/65 97 Mechanical Ventilation 65 11/14/22 16:00 11/15/22 06:38 11/15/22 06:00 11/15/22 06:38 11/15/22 06:00 11/15/22 06:00 11/07/22 00:00 FiO2 70 11/15/22 06:00 Const General: no acute distress Nutritional Appearance: average body habitus Orientation: alert and awake HEENT Head: normal to inspection, normocephalic and atraumatic Ears: external ears normal Nose: external nose normal Face and sinus: normal facial exam Mouth: other (8.0 mm internal diameter endotracheal tube and orogastric tube) Eyes Eyelids: eyelids normal Sclera: sclerae normal Neck Neck: normal visual inspection and no lymphadenopathy Chest Chest palpation & inspection: normal inspection of the chest (No evidence of crepitus) Resp Auscultation: clear to auscultation bilaterally, diminished lung sounds, no rales, no rhonchi and no wheezes Cardio Rate: regular rate Rhythm: regular rhythm Heart Sounds: S1 normal, S2 normal, no gallops, no murmurs and no rubs GI Inspection: normal to inspection Palpation: soft and nontender Auscultation: hypoactive bowel sounds Rectal Exam: deferred General: deferred Skin General: no rashes or lesions noted (Warm and dry) Extrem General: no pedal edema Objective Intake and Output I&O - Last 24 Hours: Intake & Output 11/14/22 11/15/22 11/15/22 23:59 07:59 15:59 Intake Total 80 / 1680 800 / 800 Output Total 450 / 2625 550 / 550 Balance -370 / -945 250 / 250 Weight 104.3 kg Labs 11/15/22 05:20 11/15/22 05:20 Microbiology Micro: Microbiology 11/14/22 14:19 Fungal Smear - Final Bronchial Washings - Bilateral 11/14/22 14:19 Gram Stain - Final Bronchial Washings - Bilateral 11/10/22 11:00 Blood Culture - Preliminary Blood - Central line No Growth 4 Days 11/10/22 10:16 Blood Culture - Preliminary Blood - Left Antecubital No Growth 4 Days Imaging and Cardiology Chest x-ray: Status: image reviewed by me Additional comments: Date of Service: 11/15/22 XR/XR chest 1V portable: intubation PORTABLE AP ERECT CHEST 0521 hours CLINICAL HISTORY: Respiratory distress on ventilator COMPARISON: 11/14/2022 Tubes and lines are unchanged in position. Pleural parenchymal changes are againvisualized, greater on the right where the hemidiaphragm is obscured. No pneumothorax is seen. The heart is not enlarged. The bony structures are intact. XR/XR chest 1V portable IMPRESSION: CONTINUED PLEURAL PARENCHYMAL CHANGES. NO PNEUMOTHORAX. Additional Results Results Comments: 11/15/22 05:35 ABG pH 7.49 H ABG pCO2 45.9 H ABG pO2 92.1 ABG HCO3 34.0 H ABG Total CO2 35.4 H ABG O2 Saturation 97.2 ABG O2 Content 7.0 ABG Base Excess 9.5 H //80/10 Assessment/Plan Assessment/Plan (1) Acute hypoxemic respiratory failure: (2) Tension pneumothorax: (3) Hilar lymphadenopathy: (4) Atelectasis: (5) Community acquired pneumonia: (6) Nicotine dependence: Plan Hospital day #10, ventilator day #8, right subclavian central venous catheter day #1, right axillary chest tube day #8, right anterior chest tube day #6 for patient with community acquired pneumonia and tension pneumothorax now resolved with chest tube insertions. Patient continues on levofloxacin and clindamycin per Dr. Holt. Antibiotics will be discontinued tomorrow per Dr. Holt and we will reculture for any new fever. The right axillary chest tube was removed with it on waterseal with no evidence of air leak and relatively minimal drainage. The right anterior chest tube remains in place with new right subclavian central venous catheter placed. We will continue current care and ifpatient continues with increased oxygen requirements may need to consider repeatCT scan with contrast with relatively low suspicion for pulmonary embolism but with concerns for collection of fluid which may represent now a parapneumonic effusion/complicated parapneumonic space. Continue antibiotics and supportive care. Documented By: Reginald Arroyo MD 3 [id number] Signed By: <Electronically signed by MD Reginald Arroyo> 11/15/22 1214 [facility] Work Phone: [phone] Progress note Author Sanjay Holt [facility] November 15, 2022 9:37am Note Date/Time November 15, 2022 9:37am [facility] [address] [place] [address] Infect. Disease Progress Note Signed Patient: Lori Anton MR#: [id number] : 1965 Acct:[id number] Age/Sex: 57 / M Adm Date: 3 Loc: Room: [address] [place] [address] Type: ADM IN Attending Dr: Shant Villegas MD Copies to: ~ Date of Service: 11/15/2022 Subjective Interval history: Continues to remain on the ventilator. Sedated. Intermittent low-grade temperatures. Exam Physical Exam Vital Signs: Temp Pulse Resp BP Pulse Ox O2 Del Method O2 Flow Rate 99.8 F H 99 H 21 105/65 96 Mechanical Ventilation 65 11/15/22 08:00 11/15/22 09:22 11/15/22 09:22 11/15/22 08:00 11/15/22 08:00 11/15/22 08:00 11/07/22 00:00 FiO2 70 11/15/22 09:22 Const General: ill appearing and other (sedated on vent) HEENT Head: normal to inspection Mouth: other (ETT) Eyes General: appearance normal, both eyes and all related structures Neck Neck: normal visual inspection (11/07 R IJ CVC) Chest Chest palpation & inspection: abnormal inspection of the chest (chest tubes on right) Resp Effort & Inspection: other (on vent) Auscultation: diminished lung sounds Cardio Rate: regular rate GI Palpation: soft and nontender Auscultation: hypoactive bowel sounds Skin General: no rashes or lesions noted Neuro General: other (sedated) Extrem General: normal to inspection Objective Labs CBC/BMP: CBC, BMP 11/15/22 11/15/22 05:20 05:20 Corrected WBC 25.0 H Uncorrected WBC Count 25.0 H RBC 3.39 L Hgb 10.1 L Hct 30.3 L Plt Count 381 Sodium 130 L Potassium 4.3 Chloride 90 L Carbon Dioxide 35.9 H Anion Gap 8.4 BUN 28 H Creatinine 0.57 L Calcium 7.8 L Labs: 11/15/22 05:20 BUN 28 H Creatinine 0.57 L Microbiology Microbiology: Microbiology - Results from entire visit 11/14/22 14:19 Bronchial Washings - Bilateral Bronchial Culture - Preliminary 11/14/22 14:19 Bronchial Washings - Bilateral Fungal Smear - Final 11/14/22 14:19 Bronchial Washings - Bilateral Gram Stain - Final 11/10/22 11:00 Blood - Central line Blood Culture - Preliminary No Growth 4 Days 11/10/22 10:16 Blood - Left Antecubital Blood Culture - Preliminary No Growth 4 Days 11/05/22 05:52 Blood - Right Hand Blood Culture - Final NO GROWTH 5 DAYS 11/05/22 05:52 Blood - Left Antecubital Blood Culture - Final NO GROWTH 5 DAYS 11/05/22 10:30 Sputum - Expectorated Aerobic Culture - Final Lyndsay albicans 11/05/22 10:30 Sputum - Expectorated Gram Stain - Final 11/05/22 09:40 Nasopharyngeal Respiratory Panel (PCR) - Final Allergies and Medications Allergies and Active Meds Allergies erythromycin base Allergy (Verified 11/05/22 04:16) Rash Penicillins Allergy (Verified 11/05/22 04:16) Anaphylaxis Active Medications Acetaminophen (Acetaminophen 500 Mg Tablet) 1,000 mg PO Q6HR PRN PRN Reason: Pain Scale 1 - 3 or fever Stop: 11/05/23 03:35 Last Admin: 11/05/22 21:39 Dose: 1,000 mg Albuterol (Albuterol Neb 2.5 Mg/3 Ml Vial.Neb) 2.5 mg INHALATION Q3H PRN PRN Reason: Cough/Wheeze Stop: 11/05/23 03:35 Albuterol (Albuterol Hfa 200 Puff/18 Gm Inhaler) 6 puff VENT Q6HR SHANE Stop: 11/07/23 11:59 Last Admin: 11/15/22 05:24 Dose: 6 puff Albuterol/Ipratropium (Ipratropium/Albuterol 0.5-3 Mg 3 Ml Ampul.Neb) 3 ml INHALATION QID.RESP SHANE Stop: 11/05/23 07:59 Last Admin: 11/07/22 09:05 Dose: Not Given Amlodipine Besylate (Amlodipine 10 Mg Tablet) 10 mg PO DAILY@0600 [facility] Stop: 11/05/23 08:59 Last Admin: 11/08/22 07:00 Dose: 10 mg Budesonide (Budesonide 0.5 Mg/2 Ml Ampul.Neb) 0.5 mg INHALATION BID [facility] Stop: 11/05/23 11:39 Last Admin: 11/06/22 20:43 Dose: 0.5 mg Buprenorphine HCl (Buprenorphine Hcl 2 Mg Tab.Subl) 2 mg SUBLINGUAL BID@0600,1800 [facility] Stop: 05/06/23 05:59 Last Admin: 11/07/22 06:38 Dose: 2 mg Carvedilol (Carvedilol 12.5 Mg Tablet) 12.5 mg PO BID@0600,1800 [facility] Stop: 11/06/23 20:59 Last Admin: 11/08/22 07:00 Dose: 12.5 mg Chlorhexidine Gluconate (Chlorhexidine Gluconate 0.12% 15 Ml Udc) 15 ml MUCOUS MEM BID [facility] Stop: 11/07/23 09:09 Last Admin: 11/15/22 08:10 Dose: 15 ml Docusate Sodium (Docusate Liquid 100 Mg/10 Ml Udc) 100 mg OG-TUBE BID [facility] Stop: 11/07/23 08:59 Last Admin: 11/15/22 08:10 Dose: 100 mg Enoxaparin Sodium (Enoxaparin 40 Mg/0.4 Ml Syringe) 40 mg SUBCUT DAILY@1000 [facility] Stop: 11/06/23 09:59 Last Admin: 11/14/22 15:06 Dose: 40 mg Fluoxetine HCl (Fluoxetine Soln 20 Mg/5 Ml) 40 mg PO HS [facility] Stop: 11/07/23 21:59 Last Admin: 11/14/22 21:47 Dose: 40 mg Fluoxetine HCl (Fluoxetine Soln 20 Mg/5 Ml) 20 mg PO DAILY@0600 [facility] Stop: 11/08/23 05:59 Last Admin: 11/15/22 05:47 Dose: 20 mg Guaifenesin (Guaifenesin 600 Mg Tab.Er.12h) 1,200 mg PO BID [facility] Stop: 11/06/23 12:54 Last Admin: 11/06/22 20:51 Dose: 1,200 mg Heparin Sodium (Porcine) (Heparin-Lock 500 Unit/5 Ml Syringe) 0 unit IV-PUSH QSHIFT [facility] Stop: 11/14/23 21:59 Last Admin: 11/15/22 05:46 Dose: 1,000 unit Levofloxacin (Levaquin) 750 mg in 150 mls @ 100 mls/hr IV Q24H [facility] Last Admin: 11/14/22 21:45 Dose: 100 mls/hr Clindamycin Phosphate (Cleocin) 600 mg in 50 mls @ 100 mls/hr IV Q8H [facility] Last Admin: 11/15/22 02:46 Dose: 100 mls/hr Fentanyl (Fentanyl 1,000 Mcg/100 Ml D5w) 1,000 mcg in 100 mls @ 2.5 mls/hr IV .Q24H [facility]; Protocol Last Admin: 11/15/22 07:59 Dose: 200 mcg/hr, 20 mls/hr Propofol (Diprivan) 1,000 mg in 100 mls @ 12.6 mls/hr IV .Q7H57M [facility]; Protocol Stop: 11/07/23 07:59 Last Admin: 11/15/22 06:38 Dose: 35 mcg/kg/min, 22.05 mls/hr Midazolam HCl (Versed) 100 mg in 100 mls @ 1 mls/hr IV .Q24H [facility]; Protocol Stop: 05/08/23 10:59 Last Admin: 11/14/22 21:46 Dose: Not Given Lidocaine HCl (Lidocaine 1% Pf 5 Ml Inj.Zara) 10 ml INFILTRATN ONCE PRN PRN Reason: Pain Lisinopril (Lisinopril 20 Mg Tablet) 20 mg PO DAILY@0600 [facility] Stop: 11/06/23 08:59 Last Admin: 11/08/22 07:00 Dose: 20 mg Magnesium Hydroxide (Magnesium Hydroxide Susp 30 Ml Udc) 30 ml PO DAILY PRN PRN Reason: Constipation Stop: 11/07/23 07:44 Last Admin: 11/15/22 08:10 Dose: 30 ml Metoclopramide HCl (Metoclopramide 10 Mg/2 Ml Vial) 10 mg IV-PUSH Q6HR PRN PRN Reason: Hiccups Last Admin: 11/15/22 05:48 Dose: 10 mg Metoprolol Tartrate (Metoprolol Tartrate 5 Mg/5 Ml Vial) 5 mg IV-PUSH Q5M PRN PRN Reason: Tachyarrhythmias Last Admin: 11/07/22 05:25 Dose: 5 mg Nicotine (Nicotine Patch 21 Mg/24hr 1 Each Patch.Td24) 1 each TRANSDERML DAILY PRN PRN Reason: Nicotine Cravings Stop: 12/16/22 09:01 Pantoprazole Sodium (Pantoprazole 40 Mg Vial) 40 mg IV-PUSH DAILY SHANE Stop: 11/08/23 08:59 Last Admin: 11/15/22 08:10 Dose: 40 mg Polyethylene Glycol (Polyethylene Glycol 3350 17 Gm Powd.Pack) 17 gm OG-TUBE DAILY PRN PRN Reason: Constipation Stop: 11/14/23 08:52 Potassium Chloride (Potassium Chloride Er 20 Meq Tab.Er.Prt) 40 meq PO DAILY PRN PRN Reason: Hypokalemia Stop: 11/05/23 06:40 Last Admin: 11/05/22 08:43 Dose: 40 meq Sennosides (Sennosides Syrup 8.8 Mg/5 Ml Udc) 8.8 mg PO BID [facility] Stop: 11/07/23 08:59 Last Admin: 11/15/22 08:10 Dose: 8.8 mg Sodium Chloride (Sodium Chloride 0.9 % 10 Ml Syringe) 0 ml IV-PUSH QSHIFT SHANE Stop: 11/05/23 05:59 Last Admin: 11/15/22 05:46 Dose: 10 ml Sodium Chloride (Sodium Chloride 0.9 % 10 Ml Syringe) 10 ml IV-PUSH PRN PRN PRN Reason: Flush Stop: 11/07/23 08:37 Last Admin: 11/15/22 08:11 Dose: 10 ml Sodium Chloride (Sodium Chloride 0.9 % 10 Ml Vial.Pf) 10 ml INJECTION DAILY SHANE Stop: 11/08/23 08:59 Last Admin: 11/15/22 08:10 Dose: 10 ml Sodium Chloride (Sodium Chloride 0.9 % 10 Ml Syringe) 0 ml IV-PUSH PRN PRN PRN Reason: Flush Stop: 11/14/23 15:02 Tizanidine HCl (Tizanidine 4 Mg Tablet) 4 mg PO BID@0900,1400 PRN PRN Reason: Muscle Spasm Stop: 11/05/23 06:39 Last Admin: 11/06/22 23:06 Dose: 4 mg Tizanidine HCl (Tizanidine 4 Mg Tablet) 8 mg PO HS PRN PRN Reason: Muscle Spasm Stop: 11/05/23 07:18 Last Admin: 11/05/22 21:39 Dose: 8 mg A&P - Infectious Disease Assessment/Plan (1) Fever: Code(s): R50.9 - Fever, unspecified Status: Acute (2) Acute hypoxemic respiratory failure: Code(s): J96.01 - Acute respiratory failure with hypoxia Status: Acute (3) Parainfluenza: Code(s): B34.8 - Other viral infections of unspecified site Status: Acute (4) Community acquired pneumonia: Code(s): J18.9 - Pneumonia, unspecified organism Status: Acute Plan Patient continues on Levaquin and clindamycin. Today is day 10. Patient with community-acquired pneumonia. Sputum culture with light growth of Lyndsay albicans which is likely not pathogenic. Repeat blood cx negative at 3 days. On admission respiratory PCR panel at [place] without targeted pathogen but parainfluenza 3 virus targeted here. Legionella urine antigen negative, Legionella antibodies negative. Urine strep antigen negative. HIV negative. Patient had been on 8 days of methylprednisolone which stopped November 12. We will discontinue antibiotics as despite appropriate coverage for pneumonia continues to clinically worsen from a respiratory standpoint. Function yesterday with no culture sent. We will follow- up on these results and target any new pathogens if something pathogenic grows. Documented By: Sanjay Holt MD 11/15/22 0934 Signed By: <Electronically signed by MD Sanjay Holt> 11/15/2237 [facility] Work Phone: [phone]) 914-273605-08-2023 [facility] Progress note Author Shant Villegas [facility] November 14, 2022 12:52pm Note Date/Time November 14, 2022 12:52p m [facility] [address] [place] [address] Hospitalist Progress Note Signed Patient: Lori Anton MR#: [id number] : 1965 Acct:[id number] Age/Sex: 57 / M Adm Date: 3 Loc: Room: [address] [place] [address] Type: ADM IN Attending Dr: Shant Villegas MD Copies to: ~ Date of Service: 11/14/2022 Subjective Subjective Narrative: On examination patient remains intubated and sedated. Currently PEEP of 10 [id number]% FiO2. Plan for bronchoscopy later today by pulmonary service. He is also being followed by ID. Currently on Versed, fentanyl and propofol for sedation. No growth on blood cultures so far. With initial sputum culture growing Candidaonly. Assessment And Plan 57M with PMH of HTN, DJD, Tobacco abuse, Depression who p/w ever, cough, and right-sided chest pain to the [facility] ED and Transferred for the evaluation and treatment of Bacterial pneumonia Bacterial pneumonia/Parainfluenza Infection Per chest CTA report done at [facility], there is evidence of 2.6 cm right hilar lymph node compressing the right lower lobe bronchus leading to rightlower lobe atelectasis CT chest 11/06 shows Increasing developing ground glass and patchy regions of consolidation of the lungs. Respiratory (Upper) Panel, PCR detected Parainfluenza Virus 3. Patient currently on clindamycin and Levaquin with plan to discontinue antibiotics tomorrow by ID. He is scheduled for bronchoscopy. Acute respiratory failure with hypercapnia He remains intubated on 100% FiO2 with PEEP of 10. Being followed by pulmonary service. He has been getting IV diuresis with Bumex and steroids have been discontinued. Currently no family present at bedside. right pneumothorax s/p chest tube placement x2 Exam Physical Exam Vital Signs: Temp Pulse Resp BP Pulse Ox O2 Del Method O2 Flow Rate 100.7 F H 91 H 20 102/62 94 L Mechanical Ventilation 65 11/14/22 08:00 11/14/22 10:00 11/14/22 10:00 11/14/22 10:00 11/14/22 10:00 11/14/22 10:00 11/07/22 00:00 FiO2 100 11/14/22 12:00 Const Other: Intubated and sedated Chest Other: 2 chest tubes on the right Resp Effort & Inspection: normal respiratory effort Auscultation: diminished lung sounds, no rales, no rhonchi and no wheezes Cardio Rate: regular rate Rhythm: regular rhythm Heart Sounds: S1 normal and S2 normal GI Palpation: soft, not firm and no guarding Neuro Other: Intubated and sedated Extrem General: no clubbing, cyanosis or edema Objective Lab Results 11/14/22 04:45 11/14/22 04:45 Microbiology Results Microbiology 11/10/22 11:00 Blood - Central line Blood Culture - Preliminary No Growth 4 Days 11/10/22 10:16 Blood - Left Antecubital Blood Culture - Preliminary No Growth 4 Days ABG Interpretation ABG results: 11/14/22 04:54 ABG pH 7.47 H ABG pCO2 47.2 H ABG pO2 68.0 L ABG HCO3 33.3 H ABG Total CO2 34.8 H ABG O2 Saturation 93.3 L ABG O2 Content 7.2 ABG Base Excess 8.5 H Meds Allergies and Active Meds Allergies erythromycin base Allergy (Verified 11/05/22 04:16) Rash Penicillins Allergy (Verified 11/05/22 04:16) Anaphylaxis Active Meds: Active Medications Generic Name Dose Route Start Last Admin Trade Name Freq PRN Reason Stop Dose Admin Acetaminophen 1,000 mg 11/05/22 03:36 11/05/22 21:39 Acetaminophen 500 Mg Tablet PO 11/05/23 03:35 1,000 mg Q6HR PRN Administration Pain Scale 1 - 3 or fever Albuterol 2.5 mg 11/05/22 03:36 Albuterol Neb 2.5 Mg/3 Ml Vial.Neb INHALATION 11/05/23 03:35 Q3H PRN Cough/Wheeze Albuterol 6 puff 11/07/22 12:00 11/14/22 05:19 Albuterol Hfa 200 Puff/18 Gm Inhaler VENT 11/07/23 11:59 6 puff Q6HR SHANE Administration Albuterol/Ipratropium 3 ml 11/05/22 08:00 11/07/22 09:05 Ipratropium/Albuterol 0.5-3 Mg 3 Ml Ampul.Neb INHALATION 11/05/23 07:59 NotGiven QID.RESP SHANE Amlodipine Besylate 10 mg 11/07/22 06:00 11/08/22 07:00 Amlodipine 10 Mg Tablet PO 11/05/23 08:59 10 mg DAILY@0600 SHANE Administration Budesonide 0.5 mg 11/05/22 11:40 11/06/22 20:43 Budesonide 0.5 Mg/2 Ml Ampul.Neb INHALATION 11/05/23 11:39 0.5 mg BID SHANE Administration Bumetanide 1 mg 11/13/22 16:00 11/14/22 08:55 Bumetanide 1 Mg/4 Ml Vial IV-PUSH 11/14/22 16:01 1 mg BID@0800,1600 SHANE Administration Buprenorphine HCl 2 mg 11/07/22 06:00 11/07/22 06:38 Buprenorphine Hcl 2 Mg Tab.Subl SUBLINGUAL 05/06/23 05:59 2 mg BID@0600,1800 SHANE Administration Carvedilol 12.5 mg 11/06/22 21:00 11/08/22 07:00 Carvedilol 12.5 Mg Tablet PO 11/06/23 20:59 12.5 mg BID@0600,1800 SHANE Administration Chlorhexidine Gluconate 15 ml 11/07/22 09:10 11/14/22 08:55 Chlorhexidine Gluconate 0.12% 15 Ml Udc MUCOUS MEM 11/07/23 09:09 15 ml BID SHANE Administration Docusate Sodium 100 mg 11/07/22 09:00 11/14/22 08:55 Docusate Liquid 100 Mg/10 Ml Udc OG-TUBE 11/07/23 08:59 100 mg BID SHANE Administration Enoxaparin Sodium 40 mg 11/06/22 10:00 11/13/22 09:16 Enoxaparin 40 Mg/0.4 Ml Syringe SUBCUT 11/06/23 09:59 40 mg DAILY@1000 SHANE Administration Fluoxetine HCl 40 mg 11/07/22 22:00 11/13/22 22:32 Fluoxetine Soln 20 Mg/5 Ml PO 11/07/23 21:59 40 mg HS SHANE Administration Fluoxetine HCl 20 mg 11/08/22 06:00 11/14/22 06:31 Fluoxetine Soln 20 Mg/5 Ml PO 11/08/23 05:59 20 mg DAILY@0600 SHANE Administration Guaifenesin 1,200 mg 11/06/22 12:55 11/06/22 20:51 Guaifenesin 600 Mg Tab.Er.12h PO 11/06/23 12:54 1,200 mg BID SHANE Administration Levofloxacin 750 mg in 150 mls @ 100 mls/hr 11/05/22 21:00 11/13/22 22:31 Levaquin IV 100 mls/hr Q24H SHANE Administration Clindamycin Phosphate 600 mg in 50 mls @ 100 mls/hr 11/05/22 18:00 11/14/22 09:00 Cleocin IV 100 mls/hr Q8H SHANE Administration Fentanyl 1,000 mcg in 100 mls @ 2.5 mls/hr 11/07/22 07:45 11/14/22 09:03 Fentanyl 1,000 Mcg/100 Ml D5w IV 200 mcg/hr .Q24H SHANE 20 mls/hr Administration Protocol 25 MCG/HR Propofol 1,000 mg in 100 mls @ 12.6 mls/hr 11/07/22 08:00 11/14/22 06:30 Diprivan IV 11/07/23 07:59 50 mcg/kg/min .Q7H57M SHANE 31.5 mls/hr Administration Protocol 20 MCG/KG/MIN Midazolam HCl 100 mg in 100 mls @ 1 mls/hr 11/09/22 11:00 11/14/22 08:54 Versed IV 05/08/23 10:59 6 mg/hr .Q24H SHANE 6 mls/hr Administration Protocol 1 MG/HR Insulin Aspart 0 units 11/08/22 12:00 11/14/22 06:31 Insulin Aspart 300 Units/3 Ml Insuln.Pen SUBCUT 11/08/23 11:59 Not Given Q6HR SHANE Protocol Lidocaine HCl 10 ml 11/09/22 13:55 Lidocaine 1% Pf 5 Ml Inj.Zara INFILTRATN ONCE PRN Pain Lisinopril 20 mg 11/07/22 06:00 11/08/22 07:00 Lisinopril 20 Mg Tablet PO 11/06/23 08:59 20 mg DAILY@0600 SHANE Administration Magnesium Hydroxide 30 ml 11/07/22 07:45 Magnesium Hydroxide Susp 30 Ml Udc PO 11/07/23 07:44 DAILY PRN Constipation Metoclopramide HCl 10 mg 11/14/22 00:45 11/14/22 01:19 Metoclopramide 10 Mg/2 Ml Vial IV-PUSH 10 mg Q6HR PRN Administration Hiccups Metoprolol Tartrate 5 mg 11/07/22 05:11 11/07/22 05:25 Metoprolol Tartrate 5 Mg/5 Ml Vial IV-PUSH 5 mg Q5M PRN Administration Tachyarrhythmias Nicotine 1 each 11/05/22 04:33 Nicotine Patch 21 Mg/24hr 1 Each Patch.Td24 TRANSDERML 12/16/22 09:01 DAILY PRN Nicotine Cravings Pantoprazole Sodium 40 mg 11/08/22 09:00 11/14/22 08:55 Pantoprazole 40 Mg Vial IV-PUSH 11/08/23 08:59 40 mg DAILY SHANE Administration Polyethylene Glycol 17 gm 11/14/22 08:53 Polyethylene Glycol 3350 17 Gm Powd.Pack OG-TUBE 11/14/23 08:52 DAILY PRN Constipation Potassium Chloride 40 meq 11/05/22 06:41 11/05/22 08:43 Potassium Chloride Er 20 Meq Tab.Er.Prt PO 11/05/23 06:40 40 meq DAILY PRN Administration Hypokalemia Sennosides 8.8 mg 11/07/22 09:00 11/14/22 08:55 Sennosides Syrup 8.8 Mg/5 Ml Udc PO 11/07/23 08:59 8.8 mg BID SHANE Administration Sodium Chloride 0 ml 11/05/22 06:00 11/14/22 06:31 Sodium Chloride 0.9 % 10 Ml Syringe IV-PUSH 11/05/23 05:59 10 ml QSHIFT SHANE Administration Sodium Chloride 10 ml 11/07/22 08:38 Sodium Chloride 0.9 % 10 Ml Syringe IV-PUSH 11/07/23 08:37 PRN PRN Flush Sodium Chloride 10 ml 11/08/22 09:00 11/14/22 08:55 Sodium Chloride 0.9 % 10 Ml Vial.Pf INJECTION 11/08/23 08:59 10 ml DAILY SHANE Administration Tizanidine HCl 4 mg 11/05/22 06:40 11/06/22 23:06 Tizanidine 4 Mg Tablet PO 11/05/23 06:39 4 mg BID@0900,1400 PRN Administration Muscle Spasm Tizanidine HCl 8 mg 11/05/22 07:19 11/05/22 21:39 Tizanidine 4 Mg Tablet PO 11/05/23 07:18 8 mg HS PRN Administration Muscle Spasm A&P - Hospitalist Assessment/Plan (1) Community acquired pneumonia: (2) HTN (hypertension): (3) Acute hypoxemic respiratory failure: (4) Parainfluenza: Plan . Documented By: Shant Villegas MD 11/14/22 1247 Signed By: <Electronically signed by Shant Villegas MD> 11/14/22 [address] [facility] Work Phone: [phone] Progress note Author Reginald Arroyo [facility] November 14, 2022 12:46pm Note Date/Time November 14, 2022 8:51am [facility] [address] [place] [address] Pulmonology Progress Note Signed Patient: Lori Anton MR#: [id number] : 1965 Acct:[id number] Age/Sex: 57 / M Adm Date: 3 Loc: Room: [address] [place] [address] Type: ADM IN Attending Dr: Shant Villegas MD Copies to: ~ Date of Service: 11/14/2022 Subjective Subjective Narrative: Patient continues with intermittent increased in oxygen requirements and continues to diurese. Exam Physical Exam Vital Signs: Temp Pulse Resp BP Pulse Ox O2 Del Method O2 Flow Rate 100.1 F H 103 H 20 117/68 90 L Mechanical Ventilation 65 11/14/22 04:00 11/14/22 06:30 11/14/22 06:00 11/14/22 06:30 11/14/22 06:00 11/14/22 06:00 11/07/22 00:00 FiO2 85 11/14/22 07:00 Const Nutritional Appearance: average body habitus Orientation: alert and awake HEENT Head: normal to inspection, normocephalic and atraumatic Ears: external ears normal Nose: external nose normal Face and sinus: normal facial exam Mouth: other (8.0 mm internal diameter endotracheal tube and orogastric tube) Eyes Eyelids: eyelids normal Sclera: sclerae normal Neck Neck: normal visual inspection and no lymphadenopathy Chest Chest palpation & inspection: normal inspection of the chest (No evidence of crepitus) Resp Auscultation: clear to auscultation bilaterally, diminished lung sounds, no rales, no rhonchi and no wheezes Cardio Rate: regular rate Rhythm: regular rhythm Heart Sounds: S1 normal, S2 normal, no gallops, no murmurs and no rubs GI Inspection: normal to inspection Palpation: soft and nontender Auscultation: hypoactive bowel sounds Rectal Exam: deferred General: deferred Skin General: no rashes or lesions noted (Warm and dry) Extrem General: no pedal edema Objective Intake and Output I&O - Last 24 Hours: Intake & Output 11/13/22 11/14/22 11/14/22 23:59 07:59 15:59 Intake Total 850 / 2050 700 / 700 Output Total 2200 / 4934 890 / 890 Balance -1350 / -2884 -190 / -190 Weight 104.2 kg Labs 11/14/22 04:45 11/14/22 04:45 Microbiology Micro: Microbiology 11/10/22 11:00 Blood Culture - Preliminary Blood - Central line No Growth 3 Days 11/10/22 10:16 Blood Culture - Preliminary Blood - Left Antecubital No Growth 3 Days Imaging and Cardiology Chest x-ray: Status: image reviewed by me Additional comments: Date of Service: 11/14/22 XR/XR chest 1V portable: intubation ? XR chest 1V portable? 11/14/2022 5:46 AM SIGNS AND SYMPTOMS: Respiratory failure PROTOCOL: Frontal radiograph of the chest COMPARISON: 11/13/2022 FINDINGS: The trachea is midline. The ET tube, enteric tube, and right-sided chest tubes are in similar position. There is masslike opacity over the right hemidiaphragm which is unchanged. Hazy bibasilar airspace opacities are unchanged. No residualpneumothorax. The heart and mediastinal structures are within normal limits. Thebony thorax is intact. XR/XR chest 1V portable IMPRESSION: ? Unchanged chest. Additional Results Results Comments: 11/14/22 04:54 ABG pH 7.47 H ABG pCO2 47.2 H ABG pO2 68.0 L ABG HCO3 33.3 H ABG Total CO2 34.8 H ABG O2 Saturation 93.3 L ABG O2 Content 7.2 ABG Base Excess 8.5 H 20/500/85/8 Assessment/Plan Assessment/Plan (1) Acute hypoxemic respiratory failure: (2) Tension pneumothorax: (3) Hilar lymphadenopathy: (4) Atelectasis: (5) Community acquired pneumonia: (6) Nicotine dependence: Plan Hospital day #9, ventilator day #7, right internal jugular central venous catheter day #7, right axillary chest tube day #7, right anterior chest tube day #5 for patient with community acquired pneumonia and tension pneumothorax now resolved with chest tube insertions. Patient continues on levofloxacin and clindamycin per Dr. Holt. Due to intermittently increased oxygen requirements,we will proceed with bronchoscopy to exclude mucous plugging. Patient will alsoneed replacement of his central line which came out last night. We will continue with diuresis. Case was discussed with at bedside. Case was alsodiscussed with Dr. Holt and the hospitalist service. Antibiotics will end tomorrow and will send bronchial washings for new cultures. Documented By: Reginald Arroyo MD [id number] Signed By: <Electronically signed by MD Reginald Arroyo> 11/14/22 12[address] [facility] Work Phone: [phone] Progress note Author Sanjay Holt [facility] November 14, 2022 8:59am Note Date/Time November 14, 2022 8:59am [facility] [address] [place] [address] Infect. Disease Progress Note Signed Patient: Lori Anton MR#: [id number] : 1965 Acct:[id number] Age/Sex: 57 / M Adm Date: 3 Loc: Room: [address] [place] [address] Type: ADM IN Attending Dr: Rubi Ramos MD Copies to: ~ Date of Service: 11/14/2022 Subjective Interval history: Patient remains on ventilator. Chest tubes remain in place. Nurse shared with me that patient has been desatting and is now up to 100%. Was given some diuretics since yesterday with good output. Possible bronc being planned for today. His temperature is slightly elevated this morning to 100.1. He had beenafebrile since November 10. Blood cultures remain negative at 3 days. Continues on Levaquin and clindamycin. Exam Physical Exam Vital Signs: Temp Pulse Resp BP Pulse Ox O2 Del Method O2 Flow Rate 100.1 F H 103 H 20 117/68 90 L Mechanical Ventilation 65 11/14/22 04:00 11/14/22 06:30 11/14/22 06:00 11/14/22 06:30 11/14/22 06:00 11/14/22 06:00 11/07/22 00:00 FiO2 85 11/14/22 07:00 Narrative: T current 102 told to me by RN Const General: ill appearing and other (sedated on vent) Orientation: other (sedated) HEENT Head: normal to inspection Mouth: other (ETT) Eyes General: appearance normal, both eyes and all related structures Neck Neck: normal visual inspection (5/1 R IJ CVC) Chest Chest palpation & inspection: abnormal inspection of the chest (chest tubes on right) Resp Effort & Inspection: other (on vent) Auscultation: diminished lung sounds Cardio Rate: tachycardic GI Palpation: soft and nontender Auscultation: hypoactive bowel sounds Skin General: no rashes or lesions noted Neuro General: other (sedated) Extrem General: normal to inspection and edema (improved) Objective Labs CBC/BMP: CBC, BMP 11/13/22 11/14/22 11/14/22 05:30 04:45 04:45 Corrected WBC 15.9 H 21.5 H Uncorrected WBC Count 15.9 H 21.5 H RBC 3.30 L 3.82 L Hgb 9.8 L 11.6 L Hct 30.0 L 34.1 L Plt Count 435 445 Sodium 131 L D Potassium 4.3 Chloride 91 L Carbon Dioxide 32.8 H Anion Gap 11.5 BUN 22 Creatinine 0.59 L Calcium 7.8 L Labs: 11/14/22 04:45 BUN 22 Creatinine 0.59 L Microbiology Microbiology: Microbiology - Results from entire visit 11/10/22 11:00 Blood - Central line Blood Culture - Preliminary No Growth 3 Days 11/10/22 10:16 Blood - Left Antecubital Blood Culture - Preliminary No Growth 3 Days 11/05/22 05:52 Blood - Right Hand Blood Culture - Final NO GROWTH 5 DAYS 11/05/22 05:52 Blood - Left Antecubital Blood Culture - Final NO GROWTH 5 DAYS 11/05/22 10:30 Sputum - Expectorated Aerobic Culture - Final Lyndsay albicans 11/05/22 10:30 Sputum - Expectorated Gram Stain - Final 11/05/22 09:40 Nasopharyngeal Respiratory Panel (PCR) - Final Allergies and Medications Allergies and Active Meds Allergies erythromycin base Allergy (Verified 11/05/22 04:16) Rash Penicillins Allergy (Verified 11/05/22 04:16) Anaphylaxis Active Medications Acetaminophen (Acetaminophen 500 Mg Tablet) 1,000 mg PO Q6HR PRN PRN Reason: Pain Scale 1 - 3 or fever Stop: 11/05/23 03:35 Last Admin: 11/05/22 21:39 Dose: 1,000 mg Albuterol (Albuterol Neb 2.5 Mg/3 Ml Vial.Neb) 2.5 mg INHALATION Q3H PRN PRN Reason: Cough/Wheeze Stop: 11/05/23 03:35 Albuterol (Albuterol Hfa 200 Puff/18 Gm Inhaler) 6 puff VENT Q6HR [facility] Stop: 11/07/23 11:59 Last Admin: 11/14/22 05:19 Dose: 6 puff Albuterol/Ipratropium (Ipratropium/Albuterol 0.5-3 Mg 3 Ml Ampul.Neb) 3 ml INHALATION QID.RESP SHANE Stop: 11/05/23 07:59 Last Admin: 11/07/22 09:05 Dose: Not Given Amlodipine Besylate (Amlodipine 10 Mg Tablet) 10 mg PO DAILY@0600 [facility] Stop: 11/05/23 08:59 Last Admin: 11/08/22 07:00 Dose: 10 mg Budesonide (Budesonide 0.5 Mg/2 Ml Ampul.Neb) 0.5 mg INHALATION BID [facility] Stop: 11/05/23 11:39 Last Admin: 11/06/22 20:43 Dose: 0.5 mg Bumetanide (Bumetanide 1 Mg/4 Ml Vial) 1 mg IV-PUSH BID@0800,1600 [facility] Stop: 11/14/22 16:01 Last Admin: 11/13/22 16:15 Dose: 1 mg Buprenorphine HCl (Buprenorphine Hcl 2 Mg Tab.Subl) 2 mg SUBLINGUAL BID@06,1800 [facility] Stop: 05/06/23 05:59 Last Admin: 11/07/22 06:38 Dose: 2 mg Carvedilol (Carvedilol 12.5 Mg Tablet) 12.5 mg PO BID@06,1800 [facility] Stop: 11/06/23 20:59 Last Admin: 11/08/22 07:00 Dose: 12.5 mg Chlorhexidine Gluconate (Chlorhexidine Gluconate 0.12% 15 Ml Udc) 15 ml MUCOUS MEM BID [facility] Stop: 11/07/23 09:09 Last Admin: 11/13/22 22:31 Dose: 15 ml Docusate Sodium (Docusate Liquid 100 Mg/10 Ml Udc) 100 mg OG-TUBE BID [facility] Stop: 11/07/23 08:59 Last Admin: 11/13/22 22:31 Dose: 100 mg Enoxaparin Sodium (Enoxaparin 40 Mg/0.4 Ml Syringe) 40 mg SUBCUT DAILY@1000 [facility] Stop: 11/06/23 09:59 Last Admin: 11/13/22 09:16 Dose: 40 mg Fluoxetine HCl (Fluoxetine Soln 20 Mg/5 Ml) 40 mg PO HS SHANE Stop: 11/07/23 21:59 Last Admin: 11/13/22 22:32 Dose: 40 mg Fluoxetine HCl (Fluoxetine Soln 20 Mg/5 Ml) 20 mg PO DAILY@0600 [facility] Stop: 11/08/23 05:59 Last Admin: 11/14/22 06:31 Dose: 20 mg Guaifenesin (Guaifenesin 600 Mg Tab.Er.12h) 1,200 mg PO BID [facility] Stop: 11/06/23 12:54 Last Admin: 11/06/22 20:51 Dose: 1,200 mg Levofloxacin (Levaquin) 750 mg in 150 mls @ 100 mls/hr IV Q24H [facility] Last Admin: 11/13/22 22:31 Dose: 100 mls/hr Clindamycin Phosphate (Cleocin) 600 mg in 50 mls @ 100 mls/hr IV Q8H SHANE Last Admin: 11/14/22 01:20 Dose: 100 mls/hr Fentanyl (Fentanyl 1,000 Mcg/100 Ml D5w) 1,000 mcg in 100 mls @ 2.5 mls/hr IV .Q24H [facility]; Protocol Last Admin: 11/14/22 04:30 Dose: 200 mcg/hr, 20 mls/hr Propofol (Diprivan) 1,000 mg in 100 mls @ 12.6 mls/hr IV .Q7H57M [facility]; Protocol Stop: 11/07/23 07:59 Last Admin: 11/14/22 06:30 Dose: 50 mcg/kg/min, 31.5 mls/hr Midazolam HCl (Versed) 100 mg in 100 mls @ 1 mls/hr IV .Q24H [facility]; Protocol Stop: 05/08/23 10:59 Last Admin: 11/13/22 22:31 Dose: Not Given Insulin Aspart (Insulin Aspart 300 Units/3 Ml Insuln.Pen) 0 units SUBCUT Q6HR [facility]; Protocol Stop: 11/08/23 11:59 Last Admin: 11/14/22 06:31 Dose: Not Given Lidocaine HCl (Lidocaine 1% Pf 5 Ml Inj.Zara) 10 ml INFILTRATN ONCE PRN PRN Reason: Pain Lisinopril (Lisinopril 20 Mg Tablet) 20 mg PO DAILY@0600 [facility] Stop: 11/06/23 08:59 Last Admin: 11/08/22 07:00 Dose: 20 mg Magnesium Hydroxide (Magnesium Hydroxide Susp 30 Ml Udc) 30 ml PO DAILY PRN PRN Reason: Constipation Stop: 11/07/23 07:44 Metoclopramide HCl (Metoclopramide 10 Mg/2 Ml Vial) 10 mg IV-PUSH Q6HR PRN PRN Reason: Hiccups Last Admin: 11/14/22 01:19 Dose: 10 mg Metoprolol Tartrate (Metoprolol Tartrate 5 Mg/5 Ml Vial) 5 mg IV-PUSH Q5M PRN PRN Reason: Tachyarrhythmias Last Admin: 11/07/22 05:25 Dose: 5 mg Nicotine (Nicotine Patch 21 Mg/24hr 1 Each Patch.Td24) 1 each TRANSDERML DAILY PRN PRN Reason: Nicotine Cravings Stop: 12/16/22 09:01 Pantoprazole Sodium (Pantoprazole 40 Mg Vial) 40 mg IV-PUSH DAILY SHANE Stop: 11/08/23 08:59 Last Admin: 11/13/22 09:16 Dose: 40 mg Potassium Chloride (Potassium Chloride Er 20 Meq Tab.Er.Prt) 40 meq PO DAILY PRN PRN Reason: Hypokalemia Stop: 11/05/23 06:40 Last Admin: 11/05/22 08:43 Dose: 40 meq Sennosides (Sennosides Syrup 8.8 Mg/5 Ml Udc) 8.8 mg PO BID [facility] Stop: 11/07/23 08:59 Last Admin: 11/13/22 22:31 Dose: 8.8 mg Sodium Chloride (Sodium Chloride 0.9 % 10 Ml Syringe) 0 ml IV-PUSH QSHIFT [facility] Stop: 11/05/23 05:59 Last Admin: 11/14/22 06:31 Dose: 10 ml Sodium Chloride (Sodium Chloride 0.9 % 10 Ml Syringe) 10 ml IV-PUSH PRN PRN PRN Reason: Flush Stop: 11/07/23 08:37 Sodium Chloride (Sodium Chloride 0.9 % 10 Ml Vial.Pf) 10 ml INJECTION DAILY [facility] Stop: 11/08/23 08:59 Last Admin: 11/13/22 09:16 Dose: 10 ml Tizanidine HCl (Tizanidine 4 Mg Tablet) 4 mg PO BID@0900,1400 PRN PRN Reason: Muscle Spasm Stop: 11/05/23 06:39 Last Admin: 11/06/22 23:06 Dose: 4 mg Tizanidine HCl (Tizanidine 4 Mg Tablet) 8 mg PO HS PRN PRN Reason: Muscle Spasm Stop: 11/05/23 07:18 Last Admin: 11/05/22 21:39 Dose: 8 mg A&P - Infectious Disease Assessment/Plan (1) Fever: Code(s): R50.9 - Fever, unspecified Status: Acute (2) Acute hypoxemic respiratory failure: Code(s): J96.01 - Acute respiratory failure with hypoxia Status: Acute (3) Parainfluenza: Code(s): B34.8 - Other viral infections of unspecified site Status: Acute (4) Community acquired pneumonia: Code(s): J18.9 - Pneumonia, unspecified organism Status: Acute Plan Patient continues on Levaquin and clindamycin. Day 9 of planned 10 days. Patient with community-acquired pneumonia. Sputum culture with light growth of Lyndsay albicans which is likely not pathogenic. Repeat blood cx negative at 3days. On admission respiratory PCR panel at [place] without targeted pathogen but parainfluenza 3 virus targeted here. Legionella urine antigen negative, Legionella antibodies negative. Urine strep antigen negative. HIV negative. Patient had been on 8 days of methylprednisolone which stopped November 12. Chest x-ray performed today shows essentially unchanged findings. Bibasilar airspace opacities continue. If bronc done today we will follow-up on further cultures but still planning on stopping Levaquin and clindamycin tomorrow. Documented By: Sanjay Holt MD 11/14/22 0853 Signed By: <Electronically signed by MD Sanjay Holt> 11/14/22 0859 [facility] Work Phone: [phone]) [phone] Progress note Author Rubi Ramos [facility] November 13, 2022 5:32pm Note Date/Time November 13, 2022 2:04pm [facility] [address] [place] [address] Hospitalist Progress Note Signed Patient: Lori Anton MR#: [id number] : 1965 Acct:[id number] Age/Sex: 57 / M Adm Date: 3 Loc: Room: [address] [place] [address] Type: ADM IN Attending Dr: Rubi Ramos MD Copies to: ~ Date of Service: 11/13/2022 Subjective Subjective Narrative: Assessment And Plan 57M with PMH of HTN, DJD, Tobacco abuse, Depression who p/w ever, cough, and right-sided chest pain to the [facility] ED and Transferred for the evaluation and treatment of Bacterial pneumonia Bacterial pneumonia/Parainfluenza Infection leukocytosis is better , no fever today Per chest CTA report done at [facility], there is evidence of 2.6 cm right hilar lymph node compressing the right lower lobe bronchus leading to right lower lobe atelectasis CT chest 11/06 shows Increasing developing ground glass and patchy regions of consolidation of the lungs. Respiratory (Upper) Panel, PCR detected Parainfluenza Virus 3 Sputum Cx didn?t grow any significant pathogen Procalcitonin is high HIV screen negative Urine legionella Ab negative Strep Pneumo Ag are negative Blood Cx 11/05 remain negative ID was consulted, recommendation appreciated remain Broad spectrum Abx Fiver 11/10 Mild fever spike this morning UA was not suggestive for UTI, blood Cx obtained which still remain negative Acute respiratory failure with hypercapnia remain on MV, FiO2 90% not improving as expected The patient developed respiratory distress he eventually required intubation 11/07 Maintain O2 supplement via Mechanical ventilator PPI for GI Prophylaxis Keep head of bed > 30 degree Pulmonary consulted recommendation appreciated Agree with Bumex Tx right pneumothorax s/p chest tube placement x2 INTERVAL HPI: As Above, Pt resting in bed. intubated not improving as expected Chronic diseases: Unless mentioned Above, Essential home medications have been continued. DVT Px: Addressed Disposition: To be determined Plan of care Discussed with: the medical team Exam Physical Exam Vital Signs: Temp Pulse Resp BP Pulse Ox O2 Del Method O2 Flow Rate 37.0 C 74 20 95/57 L 95 Mechanical Ventilation 65 11/13/22 12:00 11/13/22 13:00 11/13/22 13:00 11/13/22 13:00 11/13/22 13:00 11/13/22 13:00 11/07/22 00:00 FiO2 95 11/13/22 13:00 Narrative: GENERAL: in acute stress, Intubated NECK: no JVD, supple, no thyromegaly LUNGS: no wheezing or crackles . on MV CARDIAC: normal S1 and S2; no rubs, murmurs, or gallops ABDOMEN: Abdomen soft. BS normal. No palpable masses or organomegaly. EXTREMITIES: trace edema in LE bilaterally, UE edema NEURO: Limited Exam, Sedated and intubated PSYCH: Sedated and intubated Objective Lab Results 11/13/22 05:30 11/13/22 05:30 Microbiology Results Microbiology 11/10/22 11:00 Blood - Central line Blood Culture - Preliminary No Growth 3 Days 11/10/22 10:16 Blood - Left Antecubital Blood Culture - Preliminary No Growth 3 Days ABG Interpretation ABG results: 11/13/22 05:05 ABG pH 7.45 ABG pCO2 52.0 H* ABG pO2 58.1 L ABG HCO3 35.6 H ABG Total CO2 37.2 H ABG O2 Saturation 90.3 L ABG O2 Content 7.3 ABG Base Excess 10.0 H Meds Allergies and Active Meds Allergies erythromycin base Allergy (Verified 11/05/22 04:16) Rash Penicillins Allergy (Verified 11/05/22 04:16) Anaphylaxis Active Meds: Active Medications Generic Name Dose Route Start Last Admin Trade Name Freq PRN Reason Stop Dose Admin Acetaminophen 1,000 mg 11/05/22 03:36 11/05/22 21:39 Acetaminophen 500 Mg Tablet PO 11/05/23 03:35 1,000 mg Q6HR PRN Administration Pain Scale 1 - 3 or fever Albuterol 2.5 mg 11/05/22 03:36 Albuterol Neb 2.5 Mg/3 Ml Vial.Neb INHALATION 11/05/23 03:35 Q3H PRN Cough/Wheeze Albuterol 6 puff 11/07/22 12:00 11/13/22 12:41 Albuterol Hfa 200 Puff/18 Gm Inhaler VENT 11/07/23 11:59 6 puff Q6HR SHANE Administration Albuterol/Ipratropium 3 ml 11/05/22 08:00 11/07/22 09:05 Ipratropium/Albuterol 0.5-3 Mg 3 Ml Ampul.Neb INHALATION 11/05/23 07:59 NotGiven QID.RESP SHANE Amlodipine Besylate 10 mg 05/01/23 06:00 11/08/22 07:00 Amlodipine 10 Mg Tablet PO 11/05/23 08:59 10 mg DAILY@0600 SHANE Administration Budesonide 0.5 mg 11/05/22 11:40 11/06/22 20:43 Budesonide 0.5 Mg/2 Ml Ampul.Neb INHALATION 11/05/23 11:39 0.5 mg BID SHANE Administration Bumetanide 1 mg 11/13/22 16:00 Bumetanide 1 Mg/4 Ml Vial IV-PUSH 11/14/22 16:01 BID@0800,1600 [facility] Buprenorphine HCl 2 mg 11/07/22 06:00 11/07/22 06:38 Buprenorphine Hcl 2 Mg Tab.Subl SUBLINGUAL 05/06/23 05:59 2 mg BID@0600,1800 SHANE Administration Carvedilol 12.5 mg 11/06/22 21:00 11/08/22 07:00 Carvedilol 12.5 Mg Tablet PO 11/06/23 20:59 12.5 mg BID@0600,1800 SHANE Administration Chlorhexidine Gluconate 15 ml 11/07/22 09:10 11/13/22 09:16 Chlorhexidine Gluconate 0.12% 15 Ml Udc MUCOUS MEM 11/07/23 09:09 15 ml BID SHANE Administration Docusate Sodium 100 mg 11/07/22 09:00 11/13/22 09:16 Docusate Liquid 100 Mg/10 Ml Udc OG-TUBE 11/07/23 08:59 100 mg BID SHANE Administration Enoxaparin Sodium 40 mg 11/06/22 10:00 11/13/22 09:16 Enoxaparin 40 Mg/0.4 Ml Syringe SUBCUT 11/06/23 09:59 40 mg DAILY@1000 SHANE Administration Fluoxetine HCl 40 mg 11/07/22 22:00 11/12/22 21:36 Fluoxetine Soln 20 Mg/5 Ml PO 11/07/23 21:59 40 mg HS SHANE Administration Fluoxetine HCl 20 mg 11/08/22 06:00 11/13/22 06:39 Fluoxetine Soln 20 Mg/5 Ml PO 11/08/23 05:59 20 mg DAILY@0600 SHANE Administration Guaifenesin 1,200 mg 11/06/22 12:55 11/06/22 20:51 Guaifenesin 600 Mg Tab.Er.12h PO 11/06/23 12:54 1,200 mg BID SHANE Administration Levofloxacin 750 mg in 150 mls @ 100 mls/hr 11/05/22 21:00 11/12/22 21:36 Levaquin IV 100 mls/hr Q24H SHANE Administration Clindamycin Phosphate 600 mg in 50 mls @ 100 mls/hr 11/05/22 18:00 11/13/22 09:17 Cleocin IV 100 mls/hr Q8H SHANE Administration Fentanyl 1,000 mcg in 100 mls @ 2.5 mls/hr 11/07/22 07:45 11/13/22 13:11 Fentanyl 1,000 Mcg/100 Ml D5w IV 200 mcg/hr .Q24H SHANE 20 mls/hr Administration Protocol 25 MCG/HR Propofol 1,000 mg in 100 mls @ 12.6 mls/hr 11/07/22 08:00 11/13/22 11:13 Diprivan IV 11/07/23 07:59 50 mcg/kg/min .Q7H57M SHANE 31.5 mls/hr Administration Protocol 20 MCG/KG/MIN Midazolam HCl 100 mg in 100 mls @ 1 mls/hr 11/09/22 11:00 11/13/22 00:00 Versed IV 05/08/23 10:59 6 mg/hr .Q24H SHANE 6 mls/hr Administration Protocol 1 MG/HR Insulin Aspart 0 units 11/08/22 12:00 11/13/22 12:01 Insulin Aspart 300 Units/3 Ml Insuln.Pen SUBCUT 11/08/23 11:59 Not Given Q6HR [facility] Protocol Lidocaine HCl 10 ml 11/09/22 13:55 Lidocaine 1% Pf 5 Ml Inj.Zara INFILTRATN ONCE PRN Pain Lisinopril 20 mg 11/07/22 06:00 11/08/22 07:00 Lisinopril 20 Mg Tablet PO 11/06/23 08:59 20 mg DAILY@0600 SHANE Administration Magnesium Hydroxide 30 ml 11/07/22 07:45 Magnesium Hydroxide Susp 30 Ml Udc PO 11/07/23 07:44 DAILY PRN Constipation Metoprolol Tartrate 5 mg 11/07/22 05:11 11/07/22 05:25 Metoprolol Tartrate 5 Mg/5 Ml Vial IV-PUSH 5 mg Q5M PRN Administration Tachyarrhythmias Nicotine 1 each 11/05/22 04:33 Nicotine Patch 21 Mg/24hr 1 Each Patch.Td24 TRANSDERML 12/16/22 09:01 DAILY PRN Nicotine Cravings Pantoprazole Sodium 40 mg 11/08/22 09:00 11/13/22 09:16 Pantoprazole 40 Mg Vial IV-PUSH 11/08/23 08:59 40 mg DAILY SHANE Administration Potassium Chloride 40 meq 11/05/22 06:41 11/05/22 08:43 Potassium Chloride Er 20 Meq Tab.Er.Prt PO 11/05/23 06:40 40 meq DAILY PRN Administration Hypokalemia Sennosides 8.8 mg 11/07/22 09:00 11/13/22 09:16 Sennosides Syrup 8.8 Mg/5 Ml Udc PO 11/07/23 08:59 8.8 mg BID SHANE Administration Sodium Chloride 0 ml 11/05/22 06:00 11/13/22 13:43 Sodium Chloride 0.9 % 10 Ml Syringe IV-PUSH 11/05/23 05:59 10 ml QSHIFT SHANE Administration Sodium Chloride 10 ml 11/07/22 08:38 Sodium Chloride 0.9 % 10 Ml Syringe IV-PUSH 11/07/23 08:37 PRN PRN Flush Sodium Chloride 10 ml 11/08/22 09:00 11/13/22 09:16 Sodium Chloride 0.9 % 10 Ml Vial.Pf INJECTION 11/08/23 08:59 10 ml DAILY SHANE Administration Tizanidine HCl 4 mg 11/05/22 06:40 11/06/22 23:06 Tizanidine 4 Mg Tablet PO 11/05/23 06:39 4 mg BID@0900,1400 PRN Administration Muscle Spasm Tizanidine HCl 8 mg 11/05/22 07:19 11/05/22 21:39 Tizanidine 4 Mg Tablet PO 11/05/23 07:18 8 mg HS PRN Administration Muscle Spasm A&P - Hospitalist Assessment/Plan (1) Community acquired pneumonia: (2) HTN (hypertension): (3) Acute hypoxemic respiratory failure: (4) Parainfluenza: Plan . Documented By: Rubi Ramos MD 11/13/22 1402 Signed By: <Electronically signed by Rubi Ramos MD> 11/13/22 [address] Work Phone: [phone] Progress note Author Reginald Arroyo [facility] November 13, 2022 10:56am Note Date/Time November 13, 2022 9:03am [facility] [address] [place] [address] Pulmonology Progress Note Signed Patient: Lori Anton MR#: [id number] : 1965 Acct:[id number] Age/Sex: 57 / M Adm Date: 3 Loc: Room: [address] [place] [address] Type: ADM IN Attending Dr: Rubi Ramos MD Copies to: ~ Date of Service: 11/13/2022 Subjective Subjective Narrative: Patient remains intubated and sedated. He had increased oxygen requirements andhad very vigorous response to diuresis and was doing well with decreased oxygen requirements but is back to 100% this morning. There have otherwise been no other issues per nursing staff. Exam Physical Exam Vital Signs: Temp Pulse Resp BP Pulse Ox O2 Del Method O2 Flow Rate 98.5 F 78 20 121/68 95 Mechanical Ventilation 65 11/12/22 16:00 11/13/22 07:39 11/13/22 06:00 11/13/22 07:39 11/13/22 06:00 11/13/22 06:00 11/07/22 00:00 FiO2 75 11/13/22 06:00 Const Nutritional Appearance: average body habitus Orientation: alert and awake HEENT Head: normal to inspection, normocephalic and atraumatic Ears: external ears normal Nose: external nose normal Face and sinus: normal facial exam Mouth: other (8.0 mm internal diameter endotracheal tube and orogastric tube) Eyes Eyelids: eyelids normal Sclera: sclerae normal Neck Neck: normal visual inspection and no lymphadenopathy Chest Chest palpation & inspection: normal inspection of the chest (No evidence of crepitus) Resp Auscultation: clear to auscultation bilaterally, diminished lung sounds, no rales, no rhonchi and no wheezes Cardio Rate: regular rate Rhythm: regular rhythm Heart Sounds: S1 normal, S2 normal, no gallops, no murmurs and no rubs GI Inspection: normal to inspection Palpation: soft and nontender Auscultation: hypoactive bowel sounds Rectal Exam: deferred General: deferred Skin General: no rashes or lesions noted (Warm and dry) Extrem General: no pedal edema Objective Intake and Output I&O - Last 24 Hours: Intake & Output 11/12/22 11/13/22 11/13/22 23:59 07:59 15:59 Intake Total 830 / 2870 800 / 800 Output Total 2000 / 6090 950 / 950 Balance -1170 / -3220 -150 / -150 Weight 106.8 kg Labs 11/13/22 05:30 11/13/22 05:30 Microbiology Micro: Microbiology 11/10/22 11:00 Blood Culture - Preliminary Blood - Central line No Growth 2 Days 11/10/22 10:16 Blood Culture - Preliminary Blood - Left Antecubital No Growth 2 Days Imaging and Cardiology Chest x-ray: Status: image reviewed by me Additional comments: Date of Service: 11/13/22 XR/XR chest 1V portable: DAILY VENT CHECK SINGLE VIEW CHEST CLINICAL HISTORY: Ventilator care. COMPARISON: Chest 11/12/2022 FINDINGS: Line and tubes are in unchanged positions. Heart and mediastinal contours appearunchanged. Degree of bibasilar airspace disease/effusions are unchanged. No pneumothorax or free air. XR/XR chest 1V portable IMPRESSION: NO SIGNIFICANT CHANGE IN CHEST FINDINGS. Additional Results Results Comments: 11/13/22 05:05 ABG pH 7.45 ABG pCO2 52.0 H* ABG pO2 58.1 L ABG HCO3 35.6 H ABG Total CO2 37.2 H ABG O2 Saturation 90.3 L ABG O2 Content 7.3 ABG Base Excess 10.0 H 20/500/60/8 Assessment/Plan Assessment/Plan (1) Acute hypoxemic respiratory failure: (2) Tension pneumothorax: (3) Hilar lymphadenopathy: (4) Atelectasis: (5) Community acquired pneumonia: (6) Nicotine dependence: Plan Hospital day #8, ventilator day #6, right internal jugular central venous catheter day #6, right axillary chest tube day #6, right anterior chest tube day#4 for patient with community acquired pneumonia and tension pneumothorax now resolved with chest tube insertions. Patient continues on levofloxacin and clindamycin per Dr. Holt. We will continue diuresis with Dopplers negative forvenous thromboembolism. While we can still consider CT arteriogram to exclude pulmonary embolism, this appears somewhat less likely. Chest x-ray remained stable but would also consider bronchoscopy to evaluate for mucous plugging if the patient continues with waxing and waning oxygen requirements. In the meantime, we will schedule diuretics and continue supportive care. Documented By: Reginald Arroyo MD 3 02 Signed By: <Electronically signed by MD Reginald Arroyo> 11/13/22 [facility] Work Phone: [phone] 334-640005-06-2023 Progress note Author Rubi Ramos [facility] November 12, 2022 6:19pm Note Date/Time November 12, 2022 4:48pm [facility] [address] [place] [address] Hospitalist Progress Note Signed Patient: Lori Anton MR#: [id number] : 1965 Acct:[id number] Age/Sex: 57 / M Adm Date: 3 Loc: Room: [address] [place] [address] Type: ADM IN Attending Dr: Rubi Ramos MD Copies to: ~ Date of Service: 11/12/2022 Subjective Subjective Narrative: Assessment And Plan 57M with PMH of HTN, DJD, Tobacco abuse, Depression who p/w ever, cough, and right-sided chest pain to the [facility] ED and Transferred for the evaluation and treatment of Bacterial pneumonia Bacterial pneumonia/Parainfluenza Infection still have leukocytosis (he is on steroids) , no fever today Per chest CTA report done at [facility], there is evidence of 2.6 cm right hilar lymph node compressing the right lower lobe bronchus leading to right lower lobe atelectasis CT chest 11/06 shows Increasing developing ground glass and patchy regions of consolidation of the lungs. Respiratory (Upper) Panel, PCR detected Parainfluenza Virus 3 Sputum Cx didn?t grow any significant pathogen Procalcitonin is high HIV screen negative Urine legionella Ab negative Strep Pneumo Ag are negative Blood Cx 4/29 remain negative ID was consulted, recommendation appreciated Broad spectrum Abx Fiver 11/10 Mild fever spike this morning UA was not suggestive for UTI, blood Cx obtained which still remain negative Acute respiratory failure with hypercapnia remain on MV, FiO2 80% The patient developed respiratory distress he eventually required intubation 11/07 Maintain O2 supplement via Mechanical ventilator PPI for GI Prophylaxis Keep head of bed > 30 degree Pulmonary consulted recommendation appreciated Agree with one dose of bumex right pneumothorax s/p chest tube placement x2 INTERVAL HPI: As Above, Pt resting in bed. intubated not improving as expected Chronic diseases: Unless mentioned Above, Essential home medications have been continued. DVT Px: Addressed Disposition: To be determined Plan of care Discussed with: the medical team Exam Physical Exam Vital Signs: Temp Pulse Resp BP Pulse Ox O2 Del Method O2 Flow Rate 36.6 C 68 20 103/61 97 Mechanical Ventilation 65 11/12/22 12:00 11/12/22 15:11/12/22 15:11/12/22 15:11/12/22 15:00 11/12/22 15:11/07/22 00:00 FiO2 90 11/12/22 15:00 Narrative: GENERAL: in acute stress, Intubated NECK: no JVD, supple, no thyromegaly LUNGS: no wheezing or crackles . on MV CARDIAC: normal S1 and S2; no rubs, murmurs, or gallops ABDOMEN: Abdomen soft. BS normal. No palpable masses or organomegaly. EXTREMITIES: trace edema in LE bilaterally NEURO: Limited Exam, Sedated and intubated PSYCH: Sedated and intubated Objective Lab Results 11/12/22:10 11/12/22 05:10 Microbiology Results Microbiology 11/10/22 11:00 Blood - Central line Blood Culture - Preliminary No Growth 2 Days 11/10/22 10:16 Blood - Left Antecubital Blood Culture - Preliminary No Growth 2 Days ABG Interpretation ABG results: 11/12/22 04:57 ABG pH 7.43 ABG pCO2 50.7 H* ABG pO2 59.2 L ABG HCO3 33.0 H ABG Total CO2 34.5 H ABG O2 Saturation 89.5 L ABG O2 Content 6.3 L ABG Base Excess 7.5 H Meds Allergies and Active Meds Allergies erythromycin base Allergy (Verified 11/05/22 04:16) Rash Penicillins Allergy (Verified 11/05/22 04:16) Anaphylaxis Active Meds: Active Medications Generic Name Dose Route Start Last Admin Trade Name Freq PRN Reason Stop Dose Admin Acetaminophen 1,000 mg 11/05/22 03:36 11/05/22 21:39 Acetaminophen 500 Mg Tablet PO 11/05/23 03:35 1,000 mg Q6HR PRN Administration Pain Scale 1 - 3 or fever Albuterol 2.5 mg 11/05/22 03:36 Albuterol Neb 2.5 Mg/3 Ml Vial.Neb INHALATION 11/05/23 03:35 Q3H PRN Cough/Wheeze Albuterol 6 puff 11/07/22 12:00 11/12/22 13:09 Albuterol Hfa 200 Puff/18 Gm Inhaler VENT 11/07/23 11:59 6 puff Q6HR SHANE Administration Albuterol/Ipratropium 3 ml 11/05/22 08:00 11/07/22 09:05 Ipratropium/Albuterol 0.5-3 Mg 3 Ml Ampul.Neb INHALATION 11/05/23 07:59 NotGiven QID.RESP SHANE Amlodipine Besylate 10 mg 11/07/22 06:00 11/08/22 07:00 Amlodipine 10 Mg Tablet PO 11/05/23 08:59 10 mg DAILY@0600 SHANE Administration Budesonide 0.5 mg 11/05/22 11:40 11/06/22 20:43 Budesonide 0.5 Mg/2 Ml Ampul.Neb INHALATION 11/05/23 11:39 0.5 mg BID SHANE Administration Buprenorphine HCl 2 mg 11/07/22 06:00 11/07/22 06:38 Buprenorphine Hcl 2 Mg Tab.Subl SUBLINGUAL 05/06/23 05:59 2 mg BID@0600,1800 SHANE Administration Carvedilol 12.5 mg 11/06/22 21:00 11/08/22 07:00 Carvedilol 12.5 Mg Tablet PO 11/06/23 20:59 12.5 mg BID@0600,1800 SHANE Administration Chlorhexidine Gluconate 15 ml 11/07/22 09:10 11/12/22 08:04 Chlorhexidine Gluconate 0.12% 15 Ml Udc MUCOUS MEM 11/07/23 09:09 15 ml BID SHANE Administration Docusate Sodium 100 mg 11/07/22 09:00 11/12/22 08:04 Docusate Liquid 100 Mg/10 Ml Udc OG-TUBE 11/07/23 08:59 100 mg BID SHANE Administration Enoxaparin Sodium 40 mg 11/06/22 10:00 11/12/22 09:48 Enoxaparin 40 Mg/0.4 Ml Syringe SUBCUT 11/06/23 09:59 40 mg DAILY@1000 SHANE Administration Fluoxetine HCl 40 mg 11/07/22 22:00 11/11/22 21:48 Fluoxetine Soln 20 Mg/5 Ml PO 11/07/23 21:59 40 mg HS SHANE Administration Fluoxetine HCl 20 mg 11/08/22 06:00 11/12/22 06:30 Fluoxetine Soln 20 Mg/5 Ml PO 11/08/23 05:59 20 mg DAILY@0600 SHANE Administration Guaifenesin 1,200 mg 11/06/22 12:55 11/06/22 20:51 Guaifenesin 600 Mg Tab.Er.12h PO 11/06/23 12:54 1,200 mg BID SHANE Administration Levofloxacin 750 mg in 150 mls @ 100 mls/hr 11/05/22 21:00 11/11/22 21:46 Levaquin IV 100 mls/hr Q24H SHANE Administration Clindamycin Phosphate 600 mg in 50 mls @ 100 mls/hr 11/05/22 18:00 11/12/22 09:48 Cleocin IV 100 mls/hr Q8H SHANE Administration Fentanyl 1,000 mcg in 100 mls @ 2.5 mls/hr 11/07/22 07:45 11/12/22 14:30 Fentanyl 1,000 Mcg/100 Ml D5w IV 200 mcg/hr .Q24H SHANE 20 mls/hr Administration Protocol 25 MCG/HR Propofol 1,000 mg in 100 mls @ 12.6 mls/hr 11/07/22 08:00 11/12/22 14:30 Diprivan IV 11/07/23 07:59 50 mcg/kg/min .Q7H57M SHANE 31.5 mls/hr Administration Protocol 20 MCG/KG/MIN Midazolam HCl 100 mg in 100 mls @ 1 mls/hr 11/09/22 11:00 11/12/22 04:41 Versed IV 05/08/23 10:59 6 mg/hr .Q24H SHANE 6 mls/hr Administration Protocol 1 MG/HR Insulin Aspart 0 units 11/08/22 12:00 11/12/22 12:43 Insulin Aspart 300 Units/3 Ml Insuln.Pen SUBCUT 11/08/23 11:59 Not Given Q6HR [facility] Protocol Lidocaine HCl 10 ml 11/09/22 13:55 Lidocaine 1% Pf 5 Ml Inj.Zara INFILTRATN ONCE PRN Pain Lisinopril 20 mg 11/07/22 06:00 11/08/22 07:00 Lisinopril 20 Mg Tablet PO 11/06/23 08:59 20 mg DAILY@0600 [facility] Administration Magnesium Hydroxide 30 ml 11/07/22 07:45 Magnesium Hydroxide Susp 30 Ml Udc PO 11/07/23 07:44 DAILY PRN Constipation Metoprolol Tartrate 5 mg 11/07/22 05:11 11/07/22 05:25 Metoprolol Tartrate 5 Mg/5 Ml Vial IV-PUSH 5 mg Q5M PRN Administration Tachyarrhythmias Nicotine 1 each 11/05/22 04:33 Nicotine Patch 21 Mg/24hr 1 Each Patch.Td24 TRANSDERML 12/16/22 09:01 DAILY PRN Nicotine Cravings Pantoprazole Sodium 40 mg 11/08/22 09:00 11/12/22 08:04 Pantoprazole 40 Mg Vial IV-PUSH 11/08/23 08:59 40 mg DAILY SHANE Administration Potassium Chloride 40 meq 11/05/22 06:41 11/05/22 08:43 Potassium Chloride Er 20 Meq Tab.Er.Prt PO 11/05/23 06:40 40 meq DAILY PRN Administration Hypokalemia Sennosides 8.8 mg 11/07/22 09:00 11/12/22 08:04 Sennosides Syrup 8.8 Mg/5 Ml Udc PO 11/07/23 08:59 8.8 mg BID SHANE Administration Sodium Chloride 0 ml 11/05/22 06:00 11/12/22 06:30 Sodium Chloride 0.9 % 10 Ml Syringe IV-PUSH 11/05/23 05:59 10 ml QSHIFT SHANE Administration Sodium Chloride 10 ml 11/07/22 08:38 Sodium Chloride 0.9 % 10 Ml Syringe IV-PUSH 11/07/23 08:37 PRN PRN Flush Sodium Chloride 10 ml 11/08/22 09:00 11/12/22 08:04 Sodium Chloride 0.9 % 10 Ml Vial.Pf INJECTION 11/08/23 08:59 10 ml DAILY SHANE Administration Tizanidine HCl 4 mg 11/05/22 06:40 11/06/22 23:06 Tizanidine 4 Mg Tablet PO 11/05/23 06:39 4 mg BID@0900,1400 PRN Administration Muscle Spasm Tizanidine HCl 8 mg 11/05/22 07:19 11/05/22 21:39 Tizanidine 4 Mg Tablet PO 11/05/23 07:18 8 mg HS PRN Administration Muscle Spasm A&P - Hospitalist Assessment/Plan (1) Community acquired pneumonia: (2) HTN (hypertension): (3) Acute hypoxemic respiratory failure: (4) Parainfluenza: Plan . Documented By: Rubi Ramos MD 11/12/22 1644 Signed By: <Electronically signed by Rubi Ramos MD> 11/12/22 [facility] [facility] Work Phone: [phone] Progress note Author Reginald Arroyo [facility] November 12, 2022 2:57pm Note Date/Time November 12, 2022 8:07am [facility] [address] [place] [address] Pulmonology Progress Note Signed Patient: Lori Anton MR#: [id number] : 1965 Acct:[id number] Age/Sex: 57 / M Adm Date: 3 Loc: Room: [address] [place] [address] Type: ADM IN Attending Dr: Rubi Ramos MD Copies to: ~ Date of Service: 11/12/2022 Subjective Subjective Narrative: Patient is intubated and sedated with gradually increasing oxygen requirements and sudden increase to requiring 100% FiO2. Chest x-ray was obtained which was unchanged and venous Doppler was ordered. Patient was given a dose of diuretic with maintenance IV stopped yesterday. Patient has had significant diuresis. Case was discussed with the patient's at bedside. Exam Physical Exam Vital Signs: Temp Pulse Resp BP Pulse Ox O2 Del Method O2 Flow Rate 98.6 F 66 20 101/59 L 94 L Mechanical Ventilation 65 11/12/22 04:00 11/12/22 06:00 11/12/22 06:00 11/12/22 06:00 11/12/22 06:00 11/12/22 06:00 11/07/22 00:00 FiO2 55 11/12/22 07:00 Const Nutritional Appearance: average body habitus Orientation: alert and awake HEENT Head: normal to inspection, normocephalic and atraumatic Ears: external ears normal Nose: external nose normal Face and sinus: normal facial exam Mouth: other (8.0 mm internal diameter endotracheal tube and orogastric tube) Eyes Eyelids: eyelids normal Sclera: sclerae normal Neck Neck: normal visual inspection and no lymphadenopathy Chest Chest palpation & inspection: normal inspection of the chest (No evidence of crepitus) Resp Auscultation: clear to auscultation bilaterally, diminished lung sounds, no rales, no rhonchi and no wheezes Cardio Rate: regular rate Rhythm: regular rhythm Heart Sounds: S1 normal, S2 normal, no gallops, no murmurs and no rubs GI Inspection: normal to inspection Palpation: soft and nontender Auscultation: hypoactive bowel sounds Rectal Exam: deferred General: deferred Skin General: no rashes or lesions noted (Warm and dry) Extrem General: no pedal edema Objective Intake and Output I&O - Last 24 Hours: Intake & Output 11/11/22 11/12/22 11/12/22 23:59 07:59 15:59 Intake Total 730 / 2160 900 / 900 Output Total 1350 / 3355 1240 / 1240 Balance -620 / -1195 -340 / -340 Weight 107.6 kg Labs 11/12/22 05:10 11/12/22 05:10 Microbiology Micro: Microbiology 11/10/22 11:00 Blood Culture - Preliminary Blood - Central line No Growth 1 Day 11/10/22 10:16 Blood Culture - Preliminary Blood - Left Antecubital No Growth 1 Day Imaging and Cardiology Chest x-ray: Status: image reviewed by me (to my review, no evidence of pneumothorax with appropriate positions for RIJ CVC and ET tube; no change compared to prior) Additional comments: Date of Service: 11/12/22 XR/XR chest 1V portable: desaturation ? SINGLE VIEW CHEST CLINICAL HISTORY:? Desaturation COMPARISON:? Chest 11/12/2022 at 0521 hours FINDINGS: Line and tubes are in unchanged positions.? Heart and mediastinal structures appear unchanged.? Degree of bilateral airspace disease unchanged.? No pneumothorax or free air. XR/XR chest 1V portable IMPRESSION: ? NO SIGNIFICANT CHANGE IN CHEST FINDINGS. ? Additional Results Results Comments: 11/12/22 04:57 ABG pH 7.43 ABG pCO2 50.7 H* ABG pO2 59.2 L ABG HCO3 33.0 H ABG Total CO2 34.5 H ABG O2 Saturation 89.5 L ABG O2 Content 6.3 L ABG Base Excess 7.5 H 20/500/45/8 Assessment/Plan Assessment/Plan (1) Acute hypoxemic respiratory failure: (2) Tension pneumothorax: (3) Hilar lymphadenopathy: (4) Atelectasis: (5) Community acquired pneumonia: (6) Nicotine dependence: Plan Hospital day #7, ventilator day #5, right internal jugular central venous catheter day #5, right axillary chest tube day #5, right anterior chest tube day#3 for patient with community acquired pneumonia and tension pneumothorax now resolved with chest tube insertions. Patient continues on levofloxacin and clindamycin per Dr. Holt. Patient had increasing oxygen requirements but has had robust response to a single dose of diuretic. We will try to wean oxygen astolerated and we will hold on CT arteriogram for the present time. Continue antibiotics though will discontinue steroids as I would like to be able to utilize white count to trend progress. 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 Continue supportive care. Documented By: Reginald Arroyo MD 3 [id number] Signed By: <Electronically signed by MD Reginald Arroyo> 11/12/22 [facility] Work Phone: [phone]) [phone] Progress note Author Rubi Ramos [facility] November 12, 2022 1:03am Note Date/Time November 11, 2022 5:50pm [facility] [address] [place] [address] Hospitalist Progress Note Signed Patient: Lori Anton MR#: [id number] : 1965 Acct:[id number] Age/Sex: 57 / M Adm Date: 3 Loc: Room: [address] [place] [address] Type: ADM IN Attending Dr: Rubi Ramos MD Copies to: ~ Date of Service: 11/11/2022 Subjective Subjective Narrative: Assessment And Plan 57M with PMH of HTN, DJD, Tobacco abuse, Depression who p/w ever, cough, and right-sided chest pain to the [facility] ED and Transferred for the evaluation and treatment of Bacterial pneumonia Bacterial pneumonia/Parainfluenza Infection still have leukocytosis (he is on steroids) , borderline fever at night Per chest CTA report done at [facility], there is evidence of 2.6 cm right hilar lymph node compressing the right lower lobe bronchus leading to right lower lobe atelectasis CT chest 11/06 shows Increasing developing ground glass and patchy regions of consolidation of the lungs. Respiratory (Upper) Panel, PCR detected Parainfluenza Virus 3 Sputum Cx didn?t grow any significant pathogen Procalcitonin is high HIV screen negative Urine legionella Ab negative Strep Pneumo Ag are negative Blood Cx 11/05 remain negative ID was consulted, recommendation appreciated Broad spectrum Abx Fiver 11/10 Mild fever spike this morning UA was not suggestive for UTI, blood Cx obtained which still remain negative Acute respiratory failure with hypercapnia remain on MV, FiO2 60% The patient developed respiratory distress he eventually required intubation 11/07 Maintain O2 supplement via Mechanical ventilator PPI for GI Prophylaxis Keep head of bed > 30 degree Pulmonary consulted recommendation appreciated right pneumothorax s/p chest tube placement x2 INTERVAL HPI: As Above, Pt resting in bed. intubated Chronic diseases: Unless mentioned Above, Essential home medications have been continued. DVT Px: Addressed Disposition: To be determined Plan of care Discussed with: the medical team Exam Physical Exam Vital Signs: Temp Pulse Resp BP Pulse Ox O2 Del Method O2 Flow Rate 37.7 C H 70 20 103/62 96 Mechanical Ventilation 65 11/11/22 12:00 11/11/22 17:00 11/11/22 17:00 11/11/22 17:00 11/11/22 17:00 11/11/22 17:00 11/07/22 00:00 FiO2 60 11/11/22 17:00 Narrative: GENERAL: in acute stress, Intubated NECK: no JVD, supple, no thyromegaly LUNGS:diminished breathing sounds in the right. on MV CARDIAC: normal S1 and S2; no rubs, murmurs, or gallops ABDOMEN: Abdomen soft. BS normal. No palpable masses or organomegaly. EXTREMITIES: no edema in LE bilaterally NEURO: Limited Exam, Sedated and intubated PSYCH: Sedated and intubated Objective Lab Results 11/11/22 04:15 11/11/22 04:15 Microbiology Results Microbiology 11/10/22 11:00 Blood - Central line Blood Culture - Preliminary No Growth 1 Day 11/10/22 10:16 Blood - Left Antecubital Blood Culture - Preliminary No Growth 1 Day Meds Allergies and Active Meds Allergies erythromycin base Allergy (Verified 11/05/22 04:16) Rash Penicillins Allergy (Verified 11/05/22 04:16) Anaphylaxis Active Meds: Active Medications Generic Name Dose Route Start Last Admin Trade Name Freq PRN Reason Stop Dose Admin Acetaminophen 1,000 mg 11/05/22 03:36 11/05/22 21:39 Acetaminophen 500 Mg Tablet PO 11/05/23 03:35 1,000 mg Q6HR PRN Administration Pain Scale 1 - 3 or fever Albuterol 2.5 mg 11/05/22 03:36 Albuterol Neb 2.5 Mg/3 Ml Vial.Neb INHALATION 11/05/23 03:35 Q3H PRN Cough/Wheeze Albuterol 6 puff 11/07/22 12:00 11/11/22 17:31 Albuterol Hfa 200 Puff/18 Gm Inhaler VENT 11/07/23 11:59 6 puff Q6HR SHANE Administration Albuterol/Ipratropium 3 ml 11/05/22 08:00 11/07/22 09:05 Ipratropium/Albuterol 0.5-3 Mg 3 Ml Ampul.Neb INHALATION 11/05/23 07:59 NotGiven QID.RESP SHANE Amlodipine Besylate 10 mg 11/07/22 06:00 11/08/22 07:00 Amlodipine 10 Mg Tablet PO 11/05/23 08:59 10 mg DAILY@0600 SHANE Administration Budesonide 0.5 mg 11/05/22 11:40 11/06/22 20:43 Budesonide 0.5 Mg/2 Ml Ampul.Neb INHALATION 11/05/23 11:39 0.5 mg BID SHANE Administration Buprenorphine HCl 2 mg 11/07/22 06:00 11/07/22 06:38 Buprenorphine Hcl 2 Mg Tab.Subl SUBLINGUAL 05/06/23 05:59 2 mg BID@0600,1800 SHANE Administration Carvedilol 12.5 mg 11/06/22 21:00 11/08/22 07:00 Carvedilol 12.5 Mg Tablet PO 11/06/23 20:59 12.5 mg BID@0600,1800 SHANE Administration Chlorhexidine Gluconate 15 ml 11/07/22 09:10 11/11/22 08:53 Chlorhexidine Gluconate 0.12% 15 Ml Udc MUCOUS MEM 11/07/23 09:09 15 ml BID SHANE Administration Docusate Sodium 100 mg 11/07/22 09:00 11/11/22 08:53 Docusate Liquid 100 Mg/10 Ml Udc OG-TUBE 11/07/23 08:59 100 mg BID SHANE Administration Enoxaparin Sodium 40 mg 11/06/22 10:00 11/11/22 11:08 Enoxaparin 40 Mg/0.4 Ml Syringe SUBCUT 11/06/23 09:59 40 mg DAILY@1000 SHANE Administration Fluoxetine HCl 40 mg 11/07/22 22:00 11/10/22 21:53 Fluoxetine Soln 20 Mg/5 Ml PO 11/07/23 21:59 40 mg HS SHANE Administration Fluoxetine HCl 20 mg 11/08/22 06:00 11/11/22 06:16 Fluoxetine Soln 20 Mg/5 Ml PO 11/08/23 05:59 20 mg DAILY@0600 SHANE Administration Guaifenesin 1,200 mg 11/06/22 12:55 11/06/22 20:51 Guaifenesin 600 Mg Tab.Er.12h PO 11/06/23 12:54 1,200 mg BID SHANE Administration Levofloxacin 750 mg in 150 mls @ 100 mls/hr 11/05/22 21:00 11/10/22 21:53 Levaquin IV 100 mls/hr Q24H SHANE Administration Clindamycin Phosphate 600 mg in 50 mls @ 100 mls/hr 11/05/22 18:00 11/11/22 11:08 Cleocin IV 100 mls/hr Q8H SHANE Administration Fentanyl 1,000 mcg in 100 mls @ 2.5 mls/hr 11/07/22 07:45 11/11/22 12:20 Fentanyl 1,000 Mcg/100 Ml D5w IV 200 mcg/hr .Q24H SHANE 20 mls/hr Administration Protocol 25 MCG/HR Propofol 1,000 mg in 100 mls @ 12.6 mls/hr 11/07/22 08:00 11/11/22 15:41 Diprivan IV 11/07/23 07:59 50 mcg/kg/min .Q7H57M SHANE 31.5 mls/hr Administration Protocol 20 MCG/KG/MIN Midazolam HCl 100 mg in 100 mls @ 1 mls/hr 11/09/22 11:00 11/11/22 11:08 Versed IV 05/08/23 10:59 6 mg/hr .Q24H SHANE 6 mls/hr Administration Protocol 1 MG/HR Insulin Aspart 0 units 11/08/22 12:00 11/11/22 12:21 Insulin Aspart 300 Units/3 Ml Insuln.Pen SUBCUT 11/08/23 11:59 1 units Q6HR SHANE Administration Protocol Lidocaine HCl 10 ml 11/09/22 13:55 Lidocaine 1% Pf 5 Ml Inj.Zara INFILTRATN ONCE PRN Pain Lisinopril 20 mg 11/07/22 06:00 11/08/22 07:00 Lisinopril 20 Mg Tablet PO 11/06/23 08:59 20 mg DAILY@0600 SHANE Administration Magnesium Hydroxide 30 ml 11/07/22 07:45 Magnesium Hydroxide Susp 30 Ml Udc PO 11/07/23 07:44 DAILY PRN Constipation Methylprednisolone Sodium Succinate 40 mg 11/10/22 09:00 11/11/22 08:53 Methylprednisolone Sod Succ/Pf 40 Mg/Ml (1ml) Vial IV-PUSH 11/10/23 08:59 40 mg DAILY SHANE Administration Metoprolol Tartrate 5 mg 11/07/22 05:11 11/07/22 05:25 Metoprolol Tartrate 5 Mg/5 Ml Vial IV-PUSH 5 mg Q5M PRN Administration Tachyarrhythmias Nicotine 1 each 11/05/22 04:33 Nicotine Patch 21 Mg/24hr 1 Each Patch.Td24 TRANSDERML 12/16/22 09:01 DAILY PRN Nicotine Cravings Pantoprazole Sodium 40 mg 11/08/22 09:00 11/11/22 08:53 Pantoprazole 40 Mg Vial IV-PUSH 11/08/23 08:59 40 mg DAILY SHANE Administration Potassium Chloride 40 meq 11/05/22 06:41 11/05/22 08:43 Potassium Chloride Er 20 Meq Tab.Er.Prt PO 11/05/23 06:40 40 meq DAILY PRN Administration Hypokalemia Sennosides 8.8 mg 11/07/22 09:00 11/11/22 08:53 Sennosides Syrup 8.8 Mg/5 Ml Udc PO 11/07/23 08:59 8.8 mg BID SHANE Administration Sodium Chloride 0 ml 11/05/22 06:00 11/11/22 06:17 Sodium Chloride 0.9 % 10 Ml Syringe IV-PUSH 11/05/23 05:59 30 ml QSHIFT SHANE Administration Sodium Chloride 10 ml 11/07/22 08:38 Sodium Chloride 0.9 % 10 Ml Syringe IV-PUSH 11/07/23 08:37 PRN PRN Flush Sodium Chloride 10 ml 11/08/22 09:00 11/11/22 08:53 Sodium Chloride 0.9 % 10 Ml Vial.Pf INJECTION 11/08/23 08:59 10 ml DAILY SHANE Administration Tizanidine HCl 4 mg 11/05/22 06:40 11/06/22 23:06 Tizanidine 4 Mg Tablet PO 11/05/23 06:39 4 mg BID@0900,1400 PRN Administration Muscle Spasm Tizanidine HCl 8 mg 11/05/22 07:19 11/05/22 21:39 Tizanidine 4 Mg Tablet PO 11/05/23 07:18 8 mg HS PRN Administration Muscle Spasm A&P - Hospitalist Assessment/Plan (1) Community acquired pneumonia: (2) HTN (hypertension): (3) Acute hypoxemic respiratory failure: (4) Parainfluenza: Plan . Documented By: Rubi Ramos MD 11/11/22 1746 Signed By: <Electronically signed by Rubi Ramos MD> 11/12/22 010 [facility] Work Phone: [phone] Progress note Author Reginald Arroyo [facility] November 11, 2022 2:52pm Note Date/Time November 11, 2022 2:42pm [facility] [address] [place] [address] Pulmonology Progress Note Signed Patient: Lori Anton MR#: [id number] : 1965 Acct:[id number] Age/Sex: 57 / M Adm Date: 3 Loc: Room: [address] [place] [address] Type: ADM IN Attending Dr: Rubi Ramos MD Copies to: ~ Date of Service: 11/11/2022 Subjective Subjective Narrative: Patient remains intubated and sedated on fentanyl, propofol, and Versed drips. There were no reported issues overnight per nursing staff. Exam Physical Exam Vital Signs: Temp Pulse Resp BP Pulse Ox O2 Del Method O2 Flow Rate 98.5 F 72 20 106/64 94 L Mechanical Ventilation 65 11/11/22 08:00 11/11/22 14:00 11/11/22 14:00 11/11/22 14:00 11/11/22 14:00 11/11/22 14:00 11/07/22 00:00 FiO2 60 11/11/22 14:00 Const Nutritional Appearance: average body habitus Orientation: awake HEENT Head: normal to inspection, normocephalic and atraumatic Ears: external ears normal Nose: external nose normal Face and sinus: normal facial exam Mouth: other (8.0 mm internal diameter endotracheal tube and orogastric tube) Eyes Eyelids: eyelids normal Sclera: sclerae normal Neck Neck: normal visual inspection and no lymphadenopathy Chest Chest palpation & inspection: normal inspection of the chest (No evidence of crepitus) Resp Auscultation: clear to auscultation bilaterally, diminished lung sounds, no rales, no rhonchi and no wheezes Cardio Rate: regular rate Rhythm: regular rhythm Heart Sounds: S1 normal, S2 normal, no gallops, no murmurs and no rubs GI Inspection: normal to inspection Palpation: soft and nontender Auscultation: hypoactive bowel sounds Rectal Exam: deferred General: deferred Skin General: no rashes or lesions noted (Warm and dry) Extrem General: no pedal edema Objective Intake and Output I&O - Last 24 Hours: Intake & Output 11/10/22 11/11/22 11/11/22 23:59 07:59 15:59 Intake Total 880 / 3800 980 / 1280 300 / 1280 Output Total 1735 / 4045 725 / 725 Balance -855 / -245 255 / 555 300 / 555 Weight 103.1 kg Labs 11/11/22 04:15 11/11/22 04:15 Microbiology Micro: Microbiology 11/10/22 11:00 Blood Culture - Preliminary Blood - Central line No Growth 1 Day 11/10/22 10:16 Blood Culture - Preliminary Blood - Left Antecubital No Growth 1 Day Imaging and Cardiology Chest x-ray: Status: image reviewed by me Additional comments: Date of Service: 11/11/22 XR/XR chest 1V portable: respiratory failure PORTABLE AP SEMIERECT CHEST 0508 hours CLINICAL HISTORY: Respiratory distress on ventilator COMPARISON: 11/10/2022 Tubes and lines are unchanged from the prior. There are mild interstitial changes. There is residual pleural-parenchymal opacity at the lower lungs. No pneumothorax is noted. Does not significantly enlarged. There is mild residual subcutaneous emphysema along the right lateral chest wall and lower neck. XR/XR chest 1V portable IMPRESSION: NO RECURRENT PNEUMOTHORAX. CONTINUED PLEURAL PARENCHYMAL CHANGES. Additional Results Results Comments: 11/11/22 05:33 ABG pH 7.43 ABG pCO2 48.7 H ABG pO2 63.6 L ABG HCO3 31.8 H ABG Total CO2 33.3 H ABG O2 Saturation 91.6 L ABG O2 Content 6.3 L ABG Base Excess 6.6 H 20/500/60/8 Assessment/Plan Assessment/Plan (1) Acute hypoxemic respiratory failure: (2) Tension pneumothorax: (3) Hilar lymphadenopathy: (4) Atelectasis: (5) Community acquired pneumonia: (6) Nicotine dependence: Plan Hospital day #6, ventilator day #4, right internal jugular central venous catheter day #4, right axillary chest tube day #4, right anterior chest tube day #2 for patient with commune acquired pneumonia and tension pneumothorax now resolved with chest tube insertions. Patient continues on levofloxacin and clindamycin per Dr. Holt. Patient is noted to be HIV negative and Legionella antibodies are negative as is urine strep. The patient is still on increased oxygen and PEEP requirements with increased ventilatory requirements and do not feel that it is reasonable to consider placing chest tubes to waterseal at the present time. Continue supportive care including nutritional support, DVT, and stress ulcer prophylaxis. Documented By: Reginald Arroyo MD 3 1440 Signed By: <Electronically signed by MD Reginald Arroyo> 11/11/22 1452 [facility] Work Phone: [phone] Progress note Author Sanjay Holt [facility] November 11, 2022 11:18am Note Date/Time November 11, 2022 11:18a m [facility] [address] [place] [address] Infect. Disease Progress Note Signed Patient: Lori Anton MR#: [id number] : 1965 Acct:[id number] Age/Sex: 57 / M Adm Date: 3 Loc: Room: [address] [place] [address] Type: ADM IN Attending Dr: Rubi Ramos MD Copies to: ~ Date of Service: 11/11/2022 Subjective Interval history: Patient's is at his bedside today. Patient's fever curve seems to have improved. No change in antimicrobial coverage over the last couple days. Patient remains on the ventilator and sedated. Chest tubes remain in place. Exam Physical Exam Vital Signs: Vital Signs Temp Pulse Resp BP Pulse Ox O2 Del Method FiO2 11/11/22 11:08 80 108/64 11/11/22 11:08 80 108/64 11/11/22 09:00 79 20 105/65 93 L Mechanical Ventilation 60 11/11/22 09:00 60 11/11/22 08:00 Mechanical Ventilation 60 11/11/22 08:50 80 20 60 11/11/22 08:05 81 60 11/11/22 08:52 81 106/67 11/11/22 08:36 81 106/67 11/11/22 08:00 98.5 F 81 20 106/60 93 L Mechanical Ventilation 60 11/11/22 08:00 60 11/11/22 07:00 60 11/11/22 05:22 75 20 60 11/11/22 06:00 73 20 101/65 93 L Mechanical Ventilation 60 11/11/22 05:00 73 20 106/65 93 L Mechanical Ventilation 60 11/11/22 06:00 60 11/11/22 05:00 60 11/11/22 05:25 75 106/65 11/11/22 05:22 75 106/65 11/11/22 04:00 98.8 F 73 20 112/68 95 Mechanical Ventilation 60 11/11/22 02:11 77 111/71 11/11/22 01:04 77 111/71 11/11/22 03:41 60 11/11/22 03:00 99.2 F H 78 20 111/68 95 Mechanical Ventilation 60 11/11/22 02:33 60 11/11/22 02:00 98.8 F 73 20 115/69 95 Mechanical Ventilation 60 11/11/22 00:30 72 21 60 11/11/22 01:30 60 11/11/22 01:00 74 20 111/68 95 Mechanical Ventilation 60 11/11/22 01:00 60 11/11/22 00:00 100.1 F H 73 20 110/67 95 Mechanical Ventilation 60 11/11/22 00:00 70 11/10/22 23:00 74 20 105/61 95 Mechanical Ventilation 70 11/10/22 22:57 70 11/10/22 20:00 Mechanical Ventilation 80 11/10/22 22:00 72 20 111/67 95 Mechanical Ventilation 80 11/10/22 21:00 71 20 107/69 95 Mechanical Ventilation 80 11/10/22 20:00 98.4 F 71 20 114/75 95 Mechanical Ventilation 80 11/10/22 22:00 80 11/10/22 21:00 80 11/10/22 20:00 80 11/10/22 21:53 74 107/69 11/10/22 20:02 74 107/69 11/10/22 20:00 71 20 70 11/10/22 20:02 71 114/75 11/10/22 19:39 71 114/75 11/10/22 19:00 76 21 106/75 95 Mechanical Ventilation 80 11/10/22 19:00 80 11/10/22 16:45 77 24 80 11/10/22 18:00 77 20 118/75 96 Mechanical Ventilation 80 11/10/22 18:00 80 11/10/22 17:00 75 24 110/67 95 Mechanical Ventilation 80 11/10/22 17:00 80 11/10/22 16:51 77 114/68 11/10/22 16:51 77 114/68 11/10/22 16:00 98.8 F 75 21 114/68 94 L Mechanical Ventilation 80 11/10/22 16:00 80 11/10/22 15:00 84 23 129/73 91 L Mechanical Ventilation 80 11/10/22 14:00 98.3 F 83 21 110/70 90 L Mechanical Ventilation 60 11/10/22 15:00 80 11/10/22 14:00 60 11/10/22 14:53 84 129/73 11/10/22 14:53 84 129/73 11/10/22 12:50 87 21 60 11/10/22 13:00 80 20 113/70 95 Mechanical Ventilation 60 11/10/22 13:00 60 11/10/22 12:00 99.2 F H 87 23 119/73 93 L Mechanical Ventilation 60 11/10/22 12:00 60 11/10/22 11:42 91 H 118/76 Intake and Output 11/10/22 11/11/22 11/11/22 23:59 07:59 15:59 Intake Total 880 / 3800 980 / 1080 100 / 1080 Output Total 1735 / 4045 725 / 725 Balance -855 / -245 255 / 355 100 / 355 Intake: IV 350 / 2250 450 / 550 100 / 550 Clindamycin 600 mg/50 ml-*D5w* 50 / 150 50 / 50 600 mg In 50 ml @ 100 mls/hr IV Q8H SHANE Rx#:[id number] fentaNYL 1,000 mcg-*D5W* 1,000 100 / 400 200 / 200 mcg In 100 ml @ 25 MCG/HR 2.5 mls/hr IV .Q24H SHANE Rx#: [id number] propofoL 1,000 mg In 100 ml @ 200 / 600 200 / 300 100 / 300 20 MCG/KG/MIN 12.6 mls/hr IV . Q7H57M SHANE Rx#:[id number] Tube Feeding 480 / 1440 480 / 480 Tube Irrigant 50 / 110 50 / 50 Output: Urine Amount (Catheter) 1675 / 3635 680 / 680 Urethral (Jones) 1675 / 3635 680 / 680 Chest Tube Drainage 60 / 410 45 / 45 Right Anterior Axillary 60 / 360 40 / 40 Right Anterior Chest 0 / 50 5 / 5 Other: Weight 103.1 kg Date of Last Bowel Movement 11/04/22 11/04/22 Patient Weight 11/11/22 23:59 Weight 103.1 kg Const General: ill appearing and other (sedated on vent) Orientation: other (sedated) HEENT Head: normal to inspection Mouth: other (ETT) Eyes General: appearance normal, both eyes and all related structures Neck Neck: normal visual inspection (11/07 R IJ CVC) Chest Chest palpation & inspection: abnormal inspection of the chest (chest tube on right) Resp Effort & Inspection: other (on vent) Auscultation: diminished lung sounds Cardio Rate: regular rate and tachycardic GI Palpation: soft and nontender Auscultation: normal bowel sounds and hypoactive bowel sounds Skin General: no rashes or lesions noted Neuro General: other (sedated) Extrem General: normal to inspection and edema (UE/LE) Objective Labs CBC/BMP: CBC, BMP 11/11/22 11/11/22 04:15 04:15 Corrected WBC 19.1 H Uncorrected WBC Count 19.1 H RBC 3.40 L Hgb 10.2 L Hct 31.2 L Plt Count 401 Sodium 137 Potassium 4.0 Chloride 99 Carbon Dioxide 34.3 H Anion Gap 7.7 BUN 14 Creatinine 0.36 L Calcium 7.5 L Labs: 11/11/22 04:15 BUN 14 Creatinine 0.36 L 11/10/22 11:45 Urine Color Yellow Urine Appearance Clear Urine pH 7.5 Ur Specific Dow 1.016 Urine Protein Negative Urine Glucose (UA) Normal Urine Ketones Negative Urine Occult Blood Trace H Urine Nitrite Negative Urine Bilirubin Negative Urine Urobilinogen Normal Ur Leukocyte Esterase Negative Urine RBC 10-19 H Urine WBC 3-4 Ur Squamous Epith Cells 0-1 Urine Bacteria None seen Hyaline Casts None seen Microbiology Microbiology: Microbiology - Results from entire visit 11/10/22 11:00 Blood - Central line Blood Culture - Preliminary No Growth 1 Day 11/10/22 10:16 Blood - Left Antecubital Blood Culture - Preliminary No Growth 1 Day 11/05/22 05:52 Blood - Right Hand Blood Culture - Final NO GROWTH 5 DAYS 11/05/22 05:52 Blood - Left Antecubital Blood Culture - Final NO GROWTH 5 DAYS 11/05/22 10:30 Sputum - Expectorated Aerobic Culture - Final Lyndsay albicans 11/05/22 10:30 Sputum - Expectorated Gram Stain - Final 11/05/22 09:40 Nasopharyngeal Respiratory Panel (PCR) - Final Allergies and Medications Allergies and Active Meds Allergies erythromycin base Allergy (Verified 11/05/22 04:16) Rash Penicillins Allergy (Verified 11/05/22 04:16) Anaphylaxis Active Medications Acetaminophen (Acetaminophen 500 Mg Tablet) 1,000 mg PO Q6HR PRN PRN Reason: Pain Scale 1 - 3 or fever Stop: 11/05/23 03:35 Last Admin: 11/05/22 21:39 Dose: 1,000 mg Albuterol (Albuterol Neb 2.5 Mg/3 Ml Vial.Neb) 2.5 mg INHALATION Q3H PRN PRN Reason: Cough/Wheeze Stop: 11/05/23 03:35 Albuterol (Albuterol Hfa 200 Puff/18 Gm Inhaler) 6 puff VENT Q6HR [facility] Stop: 11/07/23 11:59 Last Admin: 11/11/22 05:23 Dose: 6 puff Albuterol/Ipratropium (Ipratropium/Albuterol 0.5-3 Mg 3 Ml Ampul.Neb) 3 ml INHALATION QID.RESP SHANE Stop: 11/05/23 07:59 Last Admin: 11/07/22 09:05 Dose: Not Given Amlodipine Besylate (Amlodipine 10 Mg Tablet) 10 mg PO DAILY@0600 [facility] Stop: 11/05/23 08:59 Last Admin: 11/08/22 07:00 Dose: 10 mg Budesonide (Budesonide 0.5 Mg/2 Ml Ampul.Neb) 0.5 mg INHALATION BID [facility] Stop: 11/05/23 11:39 Last Admin: 11/06/22 20:43 Dose: 0.5 mg Buprenorphine HCl (Buprenorphine Hcl 2 Mg Tab.Subl) 2 mg SUBLINGUAL BID@0600,1800 [facility] Stop: 05/06/23 05:59 Last Admin: 11/07/22 06:38 Dose: 2 mg Carvedilol (Carvedilol 12.5 Mg Tablet) 12.5 mg PO BID@0600,1800 [facility] Stop: 11/06/23 20:59 Last Admin: 11/08/22 07:00 Dose: 12.5 mg Chlorhexidine Gluconate (Chlorhexidine Gluconate 0.12% 15 Ml Udc) 15 ml MUCOUS MEM BID [facility] Stop: 11/07/23 09:09 Last Admin: 11/11/22 08:53 Dose: 15 ml Docusate Sodium (Docusate Liquid 100 Mg/10 Ml Udc) 100 mg OG-TUBE BID [facility] Stop: 11/07/23 08:59 Last Admin: 11/11/22 08:53 Dose: 100 mg Enoxaparin Sodium (Enoxaparin 40 Mg/0.4 Ml Syringe) 40 mg SUBCUT DAILY@1000 [facility] Stop: 11/06/23 09:59 Last Admin: 11/11/22 11:08 Dose: 40 mg Fluoxetine HCl (Fluoxetine Soln 20 Mg/5 Ml) 40 mg PO HS SHANE Stop: 11/07/23 21:59 Last Admin: 11/10/22 21:53 Dose: 40 mg Fluoxetine HCl (Fluoxetine Soln 20 Mg/5 Ml) 20 mg PO DAILY@0600 [facility] Stop: 11/08/23 05:59 Last Admin: 11/11/22 06:16 Dose: 20 mg Guaifenesin (Guaifenesin 600 Mg Tab.Er.12h) 1,200 mg PO BID [facility] Stop: 11/06/23 12:54 Last Admin: 11/06/22 20:51 Dose: 1,200 mg Levofloxacin (Levaquin) 750 mg in 150 mls @ 100 mls/hr IV Q24H [facility] Last Admin: 11/10/22 21:53 Dose: 100 mls/hr Clindamycin Phosphate (Cleocin) 600 mg in 50 mls @ 100 mls/hr IV Q8H [facility] Last Admin: 11/11/22 11:08 Dose: 100 mls/hr Fentanyl (Fentanyl 1,000 Mcg/100 Ml D5w) 1,000 mcg in 100 mls @ 2.5 mls/hr IV .Q24H [facility]; Protocol Last Admin: 11/11/22 07:45 Dose: 200 mcg/hr, 20 mls/hr Propofol (Diprivan) 1,000 mg in 100 mls @ 12.6 mls/hr IV .Q7H57M [facility]; Protocol Stop: 11/07/23 07:59 Last Admin: 11/11/22 08:52 Dose: 50 mcg/kg/min, 31.5 mls/hr Sodium Chloride (0.9% Sodium Chloride 1,000 Ml) 1,000 mls @ 75 mls/hr IV .[id number] [facility] Stop: 11/07/23 09:59 Last Admin: 11/10/22 23:51 Dose: Not Given Midazolam HCl (Versed) 100 mg in 100 mls @ 1 mls/hr IV .Q24H [facility]; Protocol Stop: 05/08/23 10:59 Last Admin: 11/11/22 11:08 Dose: 6 mg/hr, 6 mls/hr Insulin Aspart (Insulin Aspart 300 Units/3 Ml Insuln.Pen) 0 units SUBCUT Q6HR [facility]; Protocol Stop: 11/08/23 11:59 Last Admin: 11/11/22 06:10 Dose: Not Given Ketorolac Tromethamine (Ketorolac Tromethamine 30 Mg/Ml Vial) 30 mg IV-PUSH Q6HPRN PRN Reason: Pain Scale 7 - 10 Stop: 11/11/22 12:51 Last Admin: 11/07/22 04:21 Dose: 30 mg Lidocaine HCl (Lidocaine 1% Pf 5 Ml Inj.Zara) 10 ml INFILTRATN ONCE PRN PRN Reason: Pain Lisinopril (Lisinopril 20 Mg Tablet) 20 mg PO DAILY@0600 [facility] Stop: 11/06/23 08:59 Last Admin: 11/08/22 07:00 Dose: 20 mg Magnesium Hydroxide (Magnesium Hydroxide Susp 30 Ml Udc) 30 ml PO DAILY PRN PRN Reason: Constipation Stop: 11/07/23 07:44 Methylprednisolone Sodium Succinate (Methylprednisolone Sod Succ/Pf 40 Mg/Ml (1ml) Vial) 40 mg IV-PUSH DAILY [facility] Stop: 11/10/23 08:59 Last Admin: 11/11/22 08:53 Dose: 40 mg Metoprolol Tartrate (Metoprolol Tartrate 5 Mg/5 Ml Vial) 5 mg IV-PUSH Q5M PRN PRN Reason: Tachyarrhythmias Last Admin: 11/07/22 05:25 Dose: 5 mg Nicotine (Nicotine Patch 21 Mg/24hr 1 Each Patch.Td24) 1 each TRANSDERML DAILY PRN PRN Reason: Nicotine Cravings Stop: 12/16/22 09:01 Pantoprazole Sodium (Pantoprazole 40 Mg Vial) 40 mg IV-PUSH DAILY [facility] Stop: 11/08/23 08:59 Last Admin: 11/11/22 08:53 Dose: 40 mg Potassium Chloride (Potassium Chloride Er 20 Meq Tab.Er.Prt) 40 meq PO DAILY PRN PRN Reason: Hypokalemia Stop: 11/05/23 06:40 Last Admin: 11/05/22 08:43 Dose: 40 meq Sennosides (Sennosides Syrup 8.8 Mg/5 Ml Udc) 8.8 mg PO BID [facility] Stop: 11/07/23 08:59 Last Admin: 11/11/22 08:53 Dose: 8.8 mg Sodium Chloride (Sodium Chloride 0.9 % 10 Ml Syringe) 0 ml IV-PUSH QSHIFT [facility] Stop: 11/05/23 05:59 Last Admin: 11/11/22 06:17 Dose: 30 ml Sodium Chloride (Sodium Chloride 0.9 % 10 Ml Syringe) 10 ml IV-PUSH PRN PRN PRN Reason: Flush Stop: 11/07/23 08:37 Sodium Chloride (Sodium Chloride 0.9 % 10 Ml Vial.Pf) 10 ml INJECTION DAILY [facility] Stop: 11/08/23 08:59 Last Admin: 11/11/22 08:53 Dose: 10 ml Tizanidine HCl (Tizanidine 4 Mg Tablet) 4 mg PO BID@0900,1400 PRN PRN Reason: Muscle Spasm Stop: 11/05/23 06:39 Last Admin: 11/06/22 23:06 Dose: 4 mg Tizanidine HCl (Tizanidine 4 Mg Tablet) 8 mg PO HS PRN PRN Reason: Muscle Spasm Stop: 11/05/23 07:18 Last Admin: 11/05/22 21:39 Dose: 8 mg A&P - Infectious Disease Assessment/Plan (1) Fever: Code(s): R50.9 - Fever, unspecified Status: Acute (2) Acute hypoxemic respiratory failure: Code(s): J96.01 - Acute respiratory failure with hypoxia Status: Acute (3) Parainfluenza: Code(s): B34.8 - Other viral infections of unspecified site Status: Acute (4) Community acquired pneumonia: Code(s): J18.9 - Pneumonia, unspecified organism Status: Acute Plan Patient continues on Levaquin and clindamycin. Patient with community-acquiredpneumonia. Sputum culture with light growth of Lyndsay albicans which is likelynot pathogenic. Blood cultures remain negative. Respiratory PCR panel at [place] without targeted pathogen but parainfluenza 3 virus targeted here. Legionella urine antigen negative, Legionella antibodies negative. Urine strep antigen negative. HIV negative. Continues on Levaquin and Flagyl. Patient remains on steroids. Fever from yesterday morning evaluated with repeat blood cultures and urinalysis. To date blood cultures are negative and urinalysis under impressive. Afebrile currently as well as last night. Therefore continuing on Levaquin and clindamycin. Patient has been on 6 to 7 days of these antibiotics. Planning to go 10 days likely then stop. Documented By: Sanjay Holt MD 11/11/22 4403 Signed By: <Electronically signed by MD Sanjay Holt> 11/11/22 1763 [facility] Work Phone: [phone]) 939-390605-05-2023 Progress note Author Rubi Ramos [facility] November 11, 2022 12:31am Note Date/Time November 10, 2022 6:42pm [facility] [address] [place], [place] [id number] Hospitalist Progress Note Signed Patient: Lori Anton MR#: [id number] : 1965 Acct:[id number] Age/Sex: 57 / M Adm Date: 3 Loc: Room: [address] [place] [address] Type: ADM IN Attending Dr: Rubi Ramos MD Copies to: ~ Date of Service: 11/10/2022 Subjective Subjective Narrative: Assessment And Plan 57M with PMH of HTN, DJD, Tobacco abuse, Depression who p/w ever, cough, and right-sided chest pain to the [facility] ED and Transferred for the evaluation and treatment of Bacterial pneumonia Bacterial pneumonia/Parainfluenza Infection Mild fever spike this morning UA was not suggestive for UTI, blood Cx obtained, leukocytosis Per chest CTA report done at [facility], there is evidence of 2.6 cm right hilar lymph node compressing the right lower lobe bronchus leading to right lower lobe atelectasis CT chest 11/06 shows Increasing developing ground glass and patchy regions of consolidation of the lungs. Respiratory (Upper) Panel, PCR detected Parainfluenza Virus 3 Sputum Cx didn?t grow any significant pathogen Procalcitonin is high HIV screen negative Urine legionella Ab negative Strep Pneumo Ag are negative Blood Cx 11/05 remain negative Blood Cx 11/10 ID was consulted, recommendation appreciated Broad spectrum Abx Acute respiratory failure with hypercapnia remain on MV, O2 not improving as expected The patient developed respiratory distress he eventually required intubation 11/07 Maintain O2 supplement via Mechanical ventilator PPI for GI Prophylaxis Keep head of bed > 30 degree Pulmonary consulted recommendation appreciated right pneumothorax s/p chest tube placement x2 INTERVAL HPI: As Above, Pt resting in bed. intubated Chronic diseases: Unless mentioned Above, Essential home medications have been continued. DVT Px: Addressed Disposition: To be determined Plan of care Discussed with: the medical team Exam Physical Exam Vital Signs: Temp Pulse Resp BP Pulse Ox O2 Del Method O2 Flow Rate 37.1 C 77 20 118/75 96 Mechanical Ventilation 65 11/10/22 16:00 11/10/22 18:00 11/10/22 18:00 11/10/22 18:00 11/10/22 18:00 11/10/22 18:00 11/07/22 00:00 FiO2 80 11/10/22 18:00 Narrative: GENERAL: in acute stress, Intubated NECK: no JVD, supple, no thyromegaly LUNGS:diminished breathing sounds in the right. on MV CARDIAC: normal S1 and S2; no rubs, murmurs, or gallops ABDOMEN: Abdomen soft. BS normal. No palpable masses or organomegaly. EXTREMITIES: no edema in LE bilaterally NEURO: Limited Exam, Sedated and intubated PSYCH: Sedated and intubated Objective Lab Results 11/10/22 05:00 11/10/22 05:00 Microbiology Results Microbiology 11/05/22 05:52 Blood - Right Hand Blood Culture - Final NO GROWTH 5 DAYS 11/05/22 05:52 Blood - Left Antecubital Blood Culture - Final NO GROWTH 5 DAYS Meds Allergies and Active Meds Allergies erythromycin base Allergy (Verified 11/05/22 04:16) Rash Penicillins Allergy (Verified 11/05/22 04:16) Anaphylaxis Active Meds: Active Medications Generic Name Dose Route Start Last Admin Trade Name Freq PRN Reason Stop Dose Admin Acetaminophen 1,000 mg 11/05/22 03:36 11/05/22 21:39 Acetaminophen 500 Mg Tablet PO 11/05/23 03:35 1,000 mg Q6HR PRN Administration Pain Scale 1 - 3 or fever Albuterol 2.5 mg 11/05/22 03:36 Albuterol Neb 2.5 Mg/3 Ml Vial.Neb INHALATION 11/05/23 03:35 Q3H PRN Cough/Wheeze Albuterol 6 puff 11/07/22 12:00 11/10/22 18:30 Albuterol Hfa 200 Puff/18 Gm Inhaler VENT 11/07/23 11:59 6 puff Q6HR SHANE Administration Albuterol/Ipratropium 3 ml 11/05/22 08:00 11/07/22 09:05 Ipratropium/Albuterol 0.5-3 Mg 3 Ml Ampul.Neb INHALATION 11/05/23 07:59 NotGiven QID.RESP SHANE Amlodipine Besylate 10 mg 11/07/22 06:00 11/08/22 07:00 Amlodipine 10 Mg Tablet PO 11/05/23 08:59 10 mg DAILY@0600 SHANE Administration Budesonide 0.5 mg 11/05/22 11:40 11/06/22 20:43 Budesonide 0.5 Mg/2 Ml Ampul.Neb INHALATION 11/05/23 11:39 0.5 mg BID SHANE Administration Buprenorphine HCl 2 mg 11/07/22 06:00 11/07/22 06:38 Buprenorphine Hcl 2 Mg Tab.Subl SUBLINGUAL 05/06/23 05:59 2 mg BID@0600,1800 SHANE Administration Carvedilol 12.5 mg 11/06/22 21:00 11/08/22 07:00 Carvedilol 12.5 Mg Tablet PO 11/06/23 20:59 12.5 mg BID@0600,1800 SHANE Administration Chlorhexidine Gluconate 15 ml 11/07/22 09:10 11/10/22 08:57 Chlorhexidine Gluconate 0.12% 15 Ml Udc MUCOUS MEM 11/07/23 09:09 15 ml BID SHANE Administration Docusate Sodium 100 mg 11/07/22 09:00 11/10/22 08:57 Docusate Liquid 100 Mg/10 Ml Udc OG-TUBE 11/07/23 08:59 100 mg BID SHANE Administration Enoxaparin Sodium 40 mg 11/06/22 10:00 11/10/22 09:00 Enoxaparin 40 Mg/0.4 Ml Syringe SUBCUT 11/06/23 09:59 40 mg DAILY@1000 SHANE Administration Fluoxetine HCl 40 mg 11/07/22 22:00 11/09/22 21:43 Fluoxetine Soln 20 Mg/5 Ml PO 11/07/23 21:59 40 mg HS SHANE Administration Fluoxetine HCl 20 mg 11/08/22 06:00 11/10/22 05:48 Fluoxetine Soln 20 Mg/5 Ml PO 11/08/23 05:59 20 mg DAILY@0600 SHANE Administration Guaifenesin 1,200 mg 11/06/22 12:55 11/06/22 20:51 Guaifenesin 600 Mg Tab.Er.12h PO 11/06/23 12:54 1,200 mg BID SHANE Administration Levofloxacin 750 mg in 150 mls @ 100 mls/hr 11/05/22 21:00 11/09/22 21:22 Levaquin IV 100 mls/hr Q24H SHANE Administration Clindamycin Phosphate 600 mg in 50 mls @ 100 mls/hr 11/05/22 18:00 11/10/22 18:29 Cleocin IV 100 mls/hr Q8H SHANE Administration Fentanyl 1,000 mcg in 100 mls @ 2.5 mls/hr 11/07/22 07:45 11/10/22 15:22 Fentanyl 1,000 Mcg/100 Ml D5w IV 200 mcg/hr .Q24H SHANE 20 mls/hr Administration Protocol 25 MCG/HR Propofol 1,000 mg in 100 mls @ 12.6 mls/hr 11/07/22 08:00 11/10/22 16:51 Diprivan IV 11/07/23 07:59 50 mcg/kg/min .Q7H57M SHANE 31.5 mls/hr Administration Protocol 20 MCG/KG/MIN Sodium Chloride 1,000 mls @ 75 mls/hr 11/07/22 10:00 11/10/22 15:21 0.9% Sodium Chloride 1,000 Ml IV 11/07/23 09:59 75 mls/hr .[id number] SHANE Administration Midazolam HCl 100 mg in 100 mls @ 1 mls/hr 11/09/22 11:00 11/10/22 06:34 Versed IV 05/08/23 10:59 6 mg/hr .Q24H SHANE 6 mls/hr Titration Protocol 1 MG/HR Insulin Aspart 0 units 11/08/22 12:00 11/10/22 18:29 Insulin Aspart 300 Units/3 Ml Insuln.Pen SUBCUT 11/08/23 11:59 Not Given Q6HR [facility] Protocol Ketorolac Tromethamine 30 mg 11/06/22 12:52 11/07/22 04:21 Ketorolac Tromethamine 30 Mg/Ml Vial IV-PUSH 11/11/22 12:51 30 mg Q6H PRN Administration Pain Scale 7 - 10 Lidocaine HCl 10 ml 11/09/22 13:55 Lidocaine 1% Pf 5 Ml Inj.Zara INFILTRATN ONCE PRN Pain Lisinopril 20 mg 11/07/22 06:00 11/08/22 07:00 Lisinopril 20 Mg Tablet PO 11/06/23 08:59 20 mg DAILY@0600 SHANE Administration Magnesium Hydroxide 30 ml 11/07/22 07:45 Magnesium Hydroxide Susp 30 Ml Udc PO 11/07/23 07:44 DAILY PRN Constipation Methylprednisolone Sodium Succinate 40 mg 11/10/22 09:00 11/10/22 08:56 Methylprednisolone Sod Succ/Pf 40 Mg/Ml (1ml) Vial IV-PUSH 11/10/23 08:59 40 mg DAILY SHANE Administration Metoprolol Tartrate 5 mg 11/07/22 05:11 11/07/22 05:25 Metoprolol Tartrate 5 Mg/5 Ml Vial IV-PUSH 5 mg Q5M PRN Administration Tachyarrhythmias Nicotine 1 each 11/05/22 04:33 Nicotine Patch 21 Mg/24hr 1 Each Patch.Td24 TRANSDERML 12/16/22 09:01 DAILY PRN Nicotine Cravings Pantoprazole Sodium 40 mg 11/08/22 09:00 11/10/22 08:57 Pantoprazole 40 Mg Vial IV-PUSH 11/08/23 08:59 40 mg DAILY SHANE Administration Potassium Chloride 40 meq 11/05/22 06:41 11/05/22 08:43 Potassium Chloride Er 20 Meq Tab.Er.Prt PO 11/05/23 06:40 40 meq DAILY PRN Administration Hypokalemia Sennosides 8.8 mg 11/07/22 09:00 11/10/22 08:57 Sennosides Syrup 8.8 Mg/5 Ml Udc PO 11/07/23 08:59 8.8 mg BID SHANE Administration Sodium Chloride 0 ml 11/05/22 06:00 11/10/22 13:33 Sodium Chloride 0.9 % 10 Ml Syringe IV-PUSH 11/05/23 05:59 30 ml QSHIFT SHANE Administration Sodium Chloride 10 ml 11/07/22 08:38 Sodium Chloride 0.9 % 10 Ml Syringe IV-PUSH 11/07/23 08:37 PRN PRN Flush Sodium Chloride 10 ml 11/08/22 09:00 11/10/22 08:58 Sodium Chloride 0.9 % 10 Ml Vial.Pf INJECTION 11/08/23 08:59 10 ml DAILY SHANE Administration Tizanidine HCl 4 mg 11/05/22 06:40 11/06/22 23:06 Tizanidine 4 Mg Tablet PO 11/05/23 06:39 4 mg BID@0900,1400 PRN Administration Muscle Spasm Tizanidine HCl 8 mg 11/05/22 07:19 11/05/22 21:39 Tizanidine 4 Mg Tablet PO 11/05/23 07:18 8 mg HS PRN Administration Muscle Spasm A&P - Hospitalist Assessment/Plan (1) Community acquired pneumonia: (2) HTN (hypertension): (3) Acute hypoxemic respiratory failure: (4) Parainfluenza: Plan . Documented By: Rubi Ramos MD 11/10/221837 Signed By: <Electronically signed by Rubi Ramos MD> 11/11/22 0031 [facility] Work Phone: [phone] 122-181305-04-2023 Progress note Author Ismael Huitron [facility] November 10, 2022 2:27pm Note Date/Time November 10, 2022 2:27pm [facility] [address] [place] [address] Pulmonology Progress Note Signed Patient: Lori Anton MR#: [id number] : 1965 Acct:[id number] Age/Sex: 57 / M Adm Date: 3 Loc: Room: [address] [place] [address] Type: ADM IN Attending Dr: Rubi Ramos MD Copies to: ~ Date of Service: 11/10/2022 Subjective Subjective Narrative: Patient is well sedated today, intubated, on the vent, oxygenation requirement increased with weaning PEEP down to 5. He was initially a size 15 cm of water which has been slowly weaned over the last 2 days. Chest x-ray shows continued complete reexpansion of the lung with both chest tubes in place, air leak is minimal at this point. Patient remains very sensitive to movements in bed whichaffect his oxygenation status. He developed a fever this morning and repeat blood cultures were requested. He remains on antibiotic coverage as before, this was discussed with Dr. Holt from infectious disease. Exam Physical Exam Vital Signs: Temp Pulse Resp BP Pulse Ox O2 Del Method O2 Flow Rate 99.2 F H 80 20 113/70 95 Mechanical Ventilation 65 11/10/22 12:00 11/10/22 13:00 11/10/22 13:00 11/10/22 13:00 11/10/22 13:00 11/10/22 13:00 11/07/22 00:00 FiO2 60 11/10/22 13:00 Narrative: General: Patient is sedated, off muscle relaxant but requiring high doses of multiple sedatives. Eyes: Pupils equal round reactive to light HEENT: Normocephalic, atraumatic, oral mucosa moist Neck: Supple no lymphadenopathy or thyromegaly Cardiovascular: S1, S2, normal sounds, no murmurs or gallops noted, regular rhythm Lungs: Adequate breath sounds yet still decreased more on the right than the left Extremities: No significant peripheral edema, peripheral pulses adequate Neurologic: Sedated, on the vent Objective Intake and Output I&O - Last 24 Hours: Intake & Output 11/09/22 11/10/22 11/10/22 23:59 07:59 15:59 Intake Total 1880 / 3122 930 / 1130 200 / 1130 Output Total 365 / 1922 710 / 745 35 / 745 Balance 1515 / 1200 220 / 385 165 / 385 Weight 102.8 kg Labs 11/10/22 05:00 11/10/22 05:00 Microbiology Micro: Microbiology 11/05/22 05:52 Blood Culture - Final Blood - Right Hand NO GROWTH 5 DAYS 11/05/22 05:52 Blood Culture - Final Blood - Left Antecubital NO GROWTH 5 DAYS Assessment/Plan Assessment/Plan (1) Acute hypoxemic respiratory failure: Plan: Patient presented with severe community-acquired pneumonia associated with bilateral infiltrates suggestive of severe acute lung injury, has had progressive pleuritic pain on the right suggesting necrotizing component that possibly led to tension pneumothorax once intubated and placed on positive ventilation. (2) Tension pneumothorax: Plan: Patient required placement of 32 Finnish chest tube to keep up with his 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 Since (3) Hilar lymphadenopathy: Plan: This could be reactive, there was no evidence of compromised airway as reported from the outlying hospital, patient expanded well once intubated, will continue to monitor for now (4) Atelectasis: Plan: Improved with positive pressure ventilation (5) Community acquired pneumonia: Plan: Given the severity of this presentation consideration of Legionella as well as strep pneumoniae is reasonable, work-up ordered per infectious disease (6) Nicotine dependence: Plan: This is potentially leading to underlying undiagnosed COPD Plan * Patient remains critically ill, vent dependent, increasing oxygen requirement while decreasing PEEP, trying to avoid pressure injury and prolonged getting bronchopleural fistula. * Recurrent fever, was still do not have a definitive organism or cause of his pneumonic infiltrates, blood cultures obtained again today * Patient will need continued heavy sedation to avoid recurrent tension pneumo, limit movements in bed as possible, continue suctioning to -20 from both 32 Finnish chest tubes * CC time 35 minutes Documented By: Ismael Huitron MD 11/10/221421 Signed By: <Electronically signed by Ismael Huitron MD> 11/10/22 142 [facility] Work Phone: [phone] 433-802605-04-2023 Progress note Author Sanjay Holt [facility] November 10, 2022 9:42am Note Date/Time November 10, 2022 9:38am [facility] [address] [place] [address] Infect. Disease Progress Note Signed Patient: Lori Anton MR#: [id number] : 1965 Acct:[id number] Age/Sex: 57 / M Adm Date: 3 Loc: Room: [address] [place] [address] Type: ADM IN Attending Dr: Rubi aRmos MD Copies to: ~ Date of Service: 11/10/2022 Subjective Interval history: His nurse tells me he is febrile this morning the greater than 102. Patient essentially is been afebrile for days. Clinically developed sedation last night. Does not appear in any distress. Sedated on the ventilator. No reportsof diarrhea however no bowel movements have occurred. Continues to have his Jones catheter right IJ. Exam Physical Exam Vital Signs: Temp Pulse Resp BP Pulse Ox O2 Del Method O2 Flow Rate 97.8 F 93 H 20 163/97 H 96 Mechanical Ventilation 65 11/10/22 05:00 11/10/22 07:51 11/10/22 07:00 11/10/22 07:51 11/10/22 07:00 11/10/22 07:00 11/07/22 00:00 FiO2 50 11/10/22 07:00 Narrative: T current 102 told to me by RN Const General: ill appearing and other (sedated on vent) Orientation: other (sedated) HEENT Head: normal to inspection Mouth: other (ETT) Eyes General: appearance normal, both eyes and all related structures Neck Neck: normal visual inspection (11/07 R IJ CVC) Chest Chest palpation & inspection: abnormal inspection of the chest (chest tube on right) Resp Effort & Inspection: other (on vent) Auscultation: diminished lung sounds Cardio Rate: regular rate GI Palpation: soft and nontender Auscultation: hypoactive bowel sounds Skin General: no rashes or lesions noted Neuro General: other (sedated) Extrem General: normal to inspection and edema (UE/LE) Objective Labs CBC/BMP: CBC, BMP 11/10/22 11/10/22 05:00 05:00 Corrected WBC 14.4 H Uncorrected WBC Count 14.4 H RBC 3.34 L Hgb 10.0 L Hct 30.5 L Plt Count 375 Sodium 138 Potassium 3.9 Chloride 100 Carbon Dioxide 34.4 H Anion Gap 7.5 BUN 19 Creatinine 0.40 L Calcium 7.5 L Labs: 11/10/22 05:00 BUN 19 Creatinine 0.40 L Microbiology Microbiology: Microbiology - Results from entire visit 11/05/22 05:52 Blood - Right Hand Blood Culture - Final NO GROWTH 5 DAYS 11/05/22 05:52 Blood - Left Antecubital Blood Culture - Final NO GROWTH 5 DAYS 11/05/22 10:30 Sputum - Expectorated Aerobic Culture - Final Lyndsay albicans 11/05/22 10:30 Sputum - Expectorated Gram Stain - Final 11/05/22 09:40 Nasopharyngeal Respiratory Panel (PCR) - Final Additional Results Results Comment: CXR today: IMPRESSION: ? NO OBVIOUS RESIDUAL PNEUMOTHORAX. ? BILATERAL PARENCHYMAL CHANGES WELL POSSIBLE PLEURAL EFFUSIONS. Allergies and Medications Allergies and Active Meds Allergies erythromycin base Allergy (Verified 11/05/22 04:16) Rash Penicillins Allergy (Verified 11/05/22 04:16) Anaphylaxis Active Medications Acetaminophen (Acetaminophen 500 Mg Tablet) 1,000 mg PO Q6HR PRN PRN Reason: Pain Scale 1 - 3 or fever Stop: 11/05/23 03:35 Last Admin: 11/05/22 21:39 Dose: 1,000 mg Albuterol (Albuterol Neb 2.5 Mg/3 Ml Vial.Neb) 2.5 mg INHALATION Q3H PRN PRN Reason: Cough/Wheeze Stop: 11/05/23 03:35 Albuterol (Albuterol Hfa 200 Puff/18 Gm Inhaler) 6 puff VENT Q6HR [facility] Stop: 11/07/23 11:59 Last Admin: 11/10/22 06:30 Dose: 6 puff Albuterol/Ipratropium (Ipratropium/Albuterol 0.5-3 Mg 3 Ml Ampul.Neb) 3 ml INHALATION QID.RESP SHANE Stop: 11/05/23 07:59 Last Admin: 11/07/22 09:05 Dose: Not Given Amlodipine Besylate (Amlodipine 10 Mg Tablet) 10 mg PO DAILY@0600 [facility] Stop: 11/05/23 08:59 Last Admin: 11/08/22 07:00 Dose: 10 mg Budesonide (Budesonide 0.5 Mg/2 Ml Ampul.Neb) 0.5 mg INHALATION BID [facility] Stop: 11/05/23 11:39 Last Admin: 11/06/22 20:43 Dose: 0.5 mg Buprenorphine HCl (Buprenorphine Hcl 2 Mg Tab.Subl) 2 mg SUBLINGUAL BID@0600,1800 [facility] Stop: 05/06/23 05:59 Last Admin: 11/07/22 06:38 Dose: 2 mg Carvedilol (Carvedilol 12.5 Mg Tablet) 12.5 mg PO BID@0600,1800 [facility] Stop: 11/06/23 20:59 Last Admin: 11/08/22 07:00 Dose: 12.5 mg Chlorhexidine Gluconate (Chlorhexidine Gluconate 0.12% 15 Ml Udc) 15 ml MUCOUS MEM BID [facility] Stop: 11/07/23 09:09 Last Admin: 11/10/22 08:57 Dose: 15 ml Docusate Sodium (Docusate Liquid 100 Mg/10 Ml Udc) 100 mg OG-TUBE BID [facility] Stop: 11/07/23 08:59 Last Admin: 11/10/22 08:57 Dose: 100 mg Enoxaparin Sodium (Enoxaparin 40 Mg/0.4 Ml Syringe) 40 mg SUBCUT DAILY@1000 [facility] Stop: 11/06/23 09:59 Last Admin: 11/10/22 09:00 Dose: 40 mg Fluoxetine HCl (Fluoxetine Soln 20 Mg/5 Ml) 40 mg PO HS [facility] Stop: 11/07/23 21:59 Last Admin: 11/09/22 21:43 Dose: 40 mg Fluoxetine HCl (Fluoxetine Soln 20 Mg/5 Ml) 20 mg PO DAILY@0600 [facility] Stop: 11/08/23 05:59 Last Admin: 11/10/22 05:48 Dose: 20 mg Guaifenesin (Guaifenesin 600 Mg Tab.Er.12h) 1,200 mg PO BID [facility] Stop: 11/06/23 12:54 Last Admin: 11/06/22 20:51 Dose: 1,200 mg Levofloxacin (Levaquin) 750 mg in 150 mls @ 100 mls/hr IV Q24H [facility] Last Admin: 11/09/22 21:22 Dose: 100 mls/hr Clindamycin Phosphate (Cleocin) 600 mg in 50 mls @ 100 mls/hr IV Q8H [facility] Last Admin: 11/10/22 09:00 Dose: 100 mls/hr Fentanyl (Fentanyl 1,000 Mcg/100 Ml D5w) 1,000 mcg in 100 mls @ 2.5 mls/hr IV .Q24H [facility]; Protocol Last Admin: 11/10/22 08:57 Dose: 200 mcg/hr, 20 mls/hr Propofol (Diprivan) 1,000 mg in 100 mls @ 12.6 mls/hr IV .Q7H57M [facility]; Protocol Stop: 11/07/23 07:59 Last Admin: 11/10/22 07:51 Dose: 50 mcg/kg/min, 31.5 mls/hr Sodium Chloride (0.9% Sodium Chloride 1,000 Ml) 1,000 mls @ 75 mls/hr IV .[id number] [facility] Stop: 11/07/23 09:59 Last Admin: 11/10/22 06:29 Dose: Not Given Midazolam HCl (Versed) 100 mg in 100 mls @ 1 mls/hr IV .Q24H [facility]; Protocol Stop: 05/08/23 10:59 Last Titration: 11/10/22 06:34 Dose: 6 mg/hr, 6 mls/hr Insulin Aspart (Insulin Aspart 300 Units/3 Ml Insuln.Pen) 0 units SUBCUT Q6HR [facility]; Protocol Stop: 11/08/23 11:59 Last Admin: 11/10/22 06:29 Dose: Not Given Ketorolac Tromethamine (Ketorolac Tromethamine 30 Mg/Ml Vial) 30 mg IV-PUSH Q6HPRN PRN Reason: Pain Scale 7 - 10 Stop: 11/11/22 12:51 Last Admin: 11/07/22 04:21 Dose: 30 mg Lidocaine HCl (Lidocaine 1% Pf 5 Ml Inj.Zara) 10 ml INFILTRATN ONCE PRN PRN Reason: Pain Lisinopril (Lisinopril 20 Mg Tablet) 20 mg PO DAILY@0600 [facility] Stop: 11/06/23 08:59 Last Admin: 11/08/22 07:00 Dose: 20 mg Magnesium Hydroxide (Magnesium Hydroxide Susp 30 Ml Udc) 30 ml PO DAILY PRN PRN Reason: Constipation Stop: 11/07/23 07:44 Methylprednisolone Sodium Succinate (Methylprednisolone Sod Succ/Pf 40 Mg/Ml (1ml) Vial) 40 mg IV-PUSH DAILY [facility] Stop: 11/10/23 08:59 Last Admin: 11/10/22 08:56 Dose: 40 mg Metoprolol Tartrate (Metoprolol Tartrate 5 Mg/5 Ml Vial) 5 mg IV-PUSH Q5M PRN PRN Reason: Tachyarrhythmias Last Admin: 11/07/22 05:25 Dose: 5 mg Nicotine (Nicotine Patch 21 Mg/24hr 1 Each Patch.Td24) 1 each TRANSDERML DAILY PRN PRN Reason: Nicotine Cravings Stop: 12/16/22 09:01 Pantoprazole Sodium (Pantoprazole 40 Mg Vial) 40 mg IV-PUSH DAILY [facility] Stop: 11/08/23 08:59 Last Admin: 11/10/22 08:57 Dose: 40 mg Potassium Chloride (Potassium Chloride Er 20 Meq Tab.Er.Prt) 40 meq PO DAILY PRN PRN Reason: Hypokalemia Stop: 11/05/23 06:40 Last Admin: 11/05/22 08:43 Dose: 40 meq Sennosides (Sennosides Syrup 8.8 Mg/5 Ml Udc) 8.8 mg PO BID SHANE Stop: 11/07/23 08:59 Last Admin: 11/10/22 08:57 Dose: 8.8 mg Sodium Chloride (Sodium Chloride 0.9 % 10 Ml Syringe) 0 ml IV-PUSH QSHIFT SHANE Stop: 11/05/23 05:59 Last Admin: 11/10/22 07:51 Dose: 10 ml Sodium Chloride (Sodium Chloride 0.9 % 10 Ml Syringe) 10 ml IV-PUSH PRN PRN PRN Reason: Flush Stop: 11/07/23 08:37 Sodium Chloride (Sodium Chloride 0.9 % 10 Ml Vial.Pf) 10 ml INJECTION DAILY [facility] Stop: 11/08/23 08:59 Last Admin: 11/10/22 08:58 Dose: 10 ml Tizanidine HCl (Tizanidine 4 Mg Tablet) 4 mg PO BID@0900,1400 PRN PRN Reason: Muscle Spasm Stop: 11/05/23 06:39 Last Admin: 11/06/22 23:06 Dose: 4 mg Tizanidine HCl (Tizanidine 4 Mg Tablet) 8 mg PO HS PRN PRN Reason: Muscle Spasm Stop: 11/05/23 07:18 Last Admin: 11/05/22 21:39 Dose: 8 mg A&P - Infectious Disease Assessment/Plan (1) Fever: Code(s): R50.9 - Fever, unspecified Status: Acute (2) Acute hypoxemic respiratory failure: Code(s): J96.01 - Acute respiratory failure with hypoxia Status: Acute (3) Parainfluenza: Code(s): B34.8 - Other viral infections of unspecified site Status: Acute (4) Community acquired pneumonia: Code(s): J18.9 - Pneumonia, unspecified organism Status: Acute Plan Patient continues on Levaquin and clindamycin. Patient with community-acquiredpneumonia. Sputum culture with light growth of Lyndsay albicans which is likelynot pathogenic. Blood cultures remain negative. Respiratory PCR panel at [place] without targeted pathogen but parainfluenza 3 virus targeted here. Legionella urine antigen negative, Legionella antibodies negative. Urine strep antigen negative. HIV negative. Continues on Levaquin and Flagyl. Patient remains on steroids. No fever this morning. Not yet documented. Repeat cultures from blood and urine. Chest x-ray this morning as above. Patient without stools so no diarrhea. Documented By: Sanjay Holt MD 11/10/22 0936 Signed By: <Electronically signed by MD Sanjay Holt> 11/10/22 0942 [facility] Work Phone: [phone]) 817-955005-04-2023 Progress note Author Rubi Ramos [facility] November 10, 2022 1:16am Note Date/Time November 09, 2022 7:10pm [facility] [address] [place] [address] Hospitalist Progress Note Signed Patient: Lori Anton MR#: [id number] : 1965 Acct:[id number] Age/Sex: 57 / M Adm Date: 3 Loc: Room: [address] [place] [address] Type: ADM IN Attending Dr: Rubi Ramos MD Copies to: ~ Date of Service: 11/09/2022 Subjective Subjective Narrative: Assessment And Plan 57M with PMH of HTN, DJD, Tobacco abuse, Depression who p/w ever, cough, and right-sided chest pain to the [facility] ED and Transferred for the evaluation and treatment of Bacterial pneumonia/Parainfluenza Infection Afebrile, leukocytosis is resolving , Per chest CTA report done at [facility], there is evidence of 2.6 cm right hilar lymph node compressing the right lower lobe bronchus leading to right lower lobe atelectasis CT chest 11/06 shows Increasing developing ground glass and patchy regions of consolidation of the lungs. Respiratory (Upper) Panel, PCR detected Parainfluenza Virus 3 Sputum Cx didn?t grow any significant pathogen Blood Cx remain negative Procalcitonin is high HIV screen negative Urine legionella Ab negative Strep Pneumo Ag are negative ID was consulted, recommendation appreciated. Broad spectrum Abx Acute respiratory failure with hypercapnia remain on MV The patient developed respiratory distress he eventually required intubation 11/07 Maintain O2 supplement via Mechanical ventilator PPI for GI Prophylaxis Keep head of bed > 30 degree Pulmonary consulted recommendation appreciated right pneumothorax s/p chest tube placement x2 INTERVAL HPI: As Above, Pt resting in bed. intubated Chronic diseases: Unless mentioned Above, Essential home medications have been continued. DVT Px: Addressed Disposition: To be determined Plan of care Discussed with: the medical team Exam Physical Exam Vital Signs: Temp Pulse Resp BP Pulse Ox O2 Del Method O2 Flow Rate 37.0 C 67 20 100/62 96 Mechanical Ventilation 65 11/09/22 16:00 11/09/22 18:52 11/09/22 18:52 11/09/22 18:52 11/09/22 18:52 11/09/22 18:52 11/07/22 00:00 FiO2 40 11/09/22 18:52 Narrative: GENERAL: in acute stress, Intubated NECK: no JVD, supple, no thyromegaly LUNGS:diminshed breathing sounds in the right. on MV CARDIAC: normal S1 and S2; no rubs, murmurs, or gallops ABDOMEN: Abdomen soft. BS normal. No palpable masses or organomegaly. EXTREMITIES: no edema in LE bilaterally NEURO: Limited Exam, Sedated and intubated PSYCH: Sedated and intubated Objective Lab Results 11/09/22 04:28 11/09/22 04:28 Microbiology Results Microbiology 11/05/22 05:52 Blood - Right Hand Blood Culture - Preliminary No Growth 4 Days 11/05/22 05:52 Blood - Left Antecubital Blood Culture - Preliminary No Growth 4 Days Meds Allergies and Active Meds Allergies erythromycin base Allergy (Verified 11/05/22 04:16) Rash Penicillins Allergy (Verified 11/05/22 04:16) Anaphylaxis Active Meds: Active Medications Generic Name Dose Route Start Last Admin Trade Name Freq PRN Reason Stop Dose Admin Acetaminophen 1,000 mg 11/05/22 03:36 11/05/22 21:39 Acetaminophen 500 Mg Tablet PO 11/05/23 03:35 1,000 mg Q6HR PRN Administration Pain Scale 1 - 3 or fever Albuterol 2.5 mg 11/05/22 03:36 Albuterol Neb 2.5 Mg/3 Ml Vial.Neb INHALATION 11/05/23 03:35 Q3H PRN Cough/Wheeze Albuterol 6 puff 11/07/22 12:00 11/09/22 18:11 Albuterol Hfa 200 Puff/18 Gm Inhaler VENT 11/07/23 11:59 6 puff Q6HR SHANE Administration Albuterol/Ipratropium 3 ml 11/05/22 08:00 11/07/22 09:05 Ipratropium/Albuterol 0.5-3 Mg 3 Ml Ampul.Neb INHALATION 11/05/23 07:59 NotGiven QID.RESP SHANE Amlodipine Besylate 10 mg 11/07/22 06:00 11/08/22 07:00 Amlodipine 10 Mg Tablet PO 11/05/23 08:59 10 mg DAILY@0600 SHANE Administration Budesonide 0.5 mg 11/05/22 11:40 11/06/22 20:43 Budesonide 0.5 Mg/2 Ml Ampul.Neb INHALATION 11/05/23 11:39 0.5 mg BID SHANE Administration Buprenorphine HCl 2 mg 11/07/22 06:00 11/07/22 06:38 Buprenorphine Hcl 2 Mg Tab.Subl SUBLINGUAL 05/06/23 05:59 2 mg BID@0600,1800 SHANE Administration Carvedilol 12.5 mg 11/06/22 21:00 11/08/22 07:00 Carvedilol 12.5 Mg Tablet PO 11/06/23 20:59 12.5 mg BID@0600,1800 SHANE Administration Chlorhexidine Gluconate 15 ml 11/07/22 09:10 11/09/22 08:28 Chlorhexidine Gluconate 0.12% 15 Ml Udc MUCOUS MEM 11/07/23 09:09 15 ml BID SHANE Administration Docusate Sodium 100 mg 11/07/22 09:00 11/09/22 08:28 Docusate Liquid 100 Mg/10 Ml Udc OG-TUBE 11/07/23 08:59 100 mg BID SHANE Administration Enoxaparin Sodium 40 mg 11/06/22 10:00 11/09/22 09:32 Enoxaparin 40 Mg/0.4 Ml Syringe SUBCUT 11/06/23 09:59 40 mg DAILY@1000 SHANE Administration Fluoxetine HCl 40 mg 11/07/22 22:00 11/08/22 21:00 Fluoxetine Soln 20 Mg/5 Ml PO 11/07/23 21:59 40 mg HS SHANE Administration Fluoxetine HCl 20 mg 11/08/22 06:00 11/09/22 05:06 Fluoxetine Soln 20 Mg/5 Ml PO 11/08/23 05:59 20 mg DAILY@0600 SHANE Administration Guaifenesin 1,200 mg 11/06/22 12:55 11/06/22 20:51 Guaifenesin 600 Mg Tab.Er.12h PO 11/06/23 12:54 1,200 mg BID SHANE Administration Levofloxacin 750 mg in 150 mls @ 100 mls/hr 11/05/22 21:00 11/08/22 23:10 Levaquin IV Infused Q24H SHANE Infusion Clindamycin Phosphate 600 mg in 50 mls @ 100 mls/hr 11/05/22 18:00 11/09/22 18:31 Cleocin IV 100 mls/hr Q8H SHANE Administration Fentanyl 1,000 mcg in 100 mls @ 2.5 mls/hr 11/07/22 07:45 11/09/22 15:45 Fentanyl 1,000 Mcg/100 Ml D5w IV 175 mcg/hr .Q24H SHANE 17.5 mls/hr Administration Protocol 25 MCG/HR Propofol 1,000 mg in 100 mls @ 12.6 mls/hr 11/07/22 08:00 11/09/22 15:47 Diprivan IV 11/07/23 07:59 50 mcg/kg/min .Q7H57M SHANE 31.5 mls/hr Administration Protocol 20 MCG/KG/MIN Sodium Chloride 1,000 mls @ 75 mls/hr 11/07/22 10:00 11/09/22 18:38 0.9% Sodium Chloride 1,000 Ml IV 11/07/23 09:59 Not Given .[id number] [facility] Midazolam HCl 100 mg in 100 mls @ 1 mls/hr 11/09/22 11:00 11/09/22 17:35 Versed IV 05/08/23 10:59 5 mg/hr .Q24H SHANE 5 mls/hr Titration Protocol 1 MG/HR Insulin Aspart 0 units 11/08/22 12:00 11/09/22 18:31 Insulin Aspart 300 Units/3 Ml Insuln.Pen SUBCUT 11/08/23 11:59 Not Given Q6HR [facility] Protocol Ketorolac Tromethamine 30 mg 11/06/22 12:52 11/07/22 04:21 Ketorolac Tromethamine 30 Mg/Ml Vial IV-PUSH 11/11/22 12:51 30 mg Q6H PRN Administration Pain Scale 7 - 10 Lidocaine HCl 10 ml 11/09/22 13:55 Lidocaine 1% Pf 5 Ml Inj.Zara INFILTRATN ONCE PRN Pain Lisinopril 20 mg 11/07/22 06:00 11/08/22 07:00 Lisinopril 20 Mg Tablet PO 11/06/23 08:59 20 mg DAILY@0600 [facility] Administration Magnesium Hydroxide 30 ml 11/07/22 07:45 Magnesium Hydroxide Susp 30 Ml Udc PO 11/07/23 07:44 DAILY PRN Constipation Methylprednisolone Sodium Succinate 40 mg 11/10/22 09:00 Methylprednisolone Sod Succ/Pf 40 Mg/Ml (1ml) Vial IV-PUSH 11/10/23 08:59 DAILY [facility] Metoprolol Tartrate 5 mg 11/07/22 05:11 11/07/22 05:25 Metoprolol Tartrate 5 Mg/5 Ml Vial IV-PUSH 5 mg Q5M PRN Administration Tachyarrhythmias Nicotine 1 each 11/05/22 04:33 Nicotine Patch 21 Mg/24hr 1 Each Patch.Td24 TRANSDERML 12/16/22 09:01 DAILY PRN Nicotine Cravings Pantoprazole Sodium 40 mg 11/08/22 09:00 11/09/22 08:28 Pantoprazole 40 Mg Vial IV-PUSH 11/08/23 08:59 40 mg DAILY SHANE Administration Potassium Chloride 40 meq 11/05/22 06:41 11/05/22 08:43 Potassium Chloride Er 20 Meq Tab.Er.Prt PO 11/05/23 06:40 40 meq DAILY PRN Administration Hypokalemia Sennosides 8.8 mg 11/07/22 09:00 11/09/22 08:28 Sennosides Syrup 8.8 Mg/5 Ml Udc PO 11/07/23 08:59 8.8 mg BID SHANE Administration Sodium Chloride 0 ml 11/05/22 06:00 11/09/22 15:08 Sodium Chloride 0.9 % 10 Ml Syringe IV-PUSH 11/05/23 05:59 10 ml QSHIFT SHANE Administration Sodium Chloride 10 ml 11/07/22 08:38 Sodium Chloride 0.9 % 10 Ml Syringe IV-PUSH 11/07/23 08:37 PRN PRN Flush Sodium Chloride 10 ml 11/08/22 09:00 11/09/22 08:28 Sodium Chloride 0.9 % 10 Ml Vial.Pf INJECTION 11/08/23 08:59 10 ml DAILY SHANE Administration Tizanidine HCl 4 mg 11/05/22 06:40 11/06/22 23:06 Tizanidine 4 Mg Tablet PO 11/05/23 06:39 4 mg BID@0900,1400 PRN Administration Muscle Spasm Tizanidine HCl 8 mg 11/05/22 07:19 11/05/22 21:39 Tizanidine 4 Mg Tablet PO 11/05/23 07:18 8 mg HS PRN Administration Muscle Spasm A&P - Hospitalist Assessment/Plan (1) Community acquired pneumonia: (2) HTN (hypertension): (3) Acute hypoxemic respiratory failure: (4) Parainfluenza: Plan . Documented By: Rubi Ramos MD 11/09/221908 Signed By: <Electronically signed by Rubi Ramos MD> 11/10/22 [facility] [facility] Work Phone: [phone] 278-493905-03-2023 Progress note Author Ismael Huitron [facility] November 09, 2022 3:14pm Note Date/Time November 09, 2022 1:23pm [facility] [address] [place] [address] Pulmonology Progress Note Signed Patient: Lori Anton MR#: [id number] : 1965 Acct:[id number] Age/Sex: 57 / M Adm Date: 3 Loc: Room: [address] [place] [address] Type: ADM IN Attending Dr: Rubi Ramos MD Copies to: ~ Date of Service: 11/09/2022 Subjective Subjective Narrative: Patient continued to improve after placement of second chest tube, his air leak has diminished markedly since, chest x-ray continued show complete reexpansion of the lung, I will remove his small pneumothorax catheter from the right midclavicular area and maintain the large 32 [address] chest tube in place with suctioning at -20 cm of water. He tolerated weaning PEEP down to 8 by this morning, remains on FiO2 of 40% with marginal but adequate oxygenation. He has become more hypertensive which suggest that he may not be completely sedated while on Nimbex, I did stop Nimbex drip and will titrate sedation up for comfort. He had adequate urine output, kidney functions are stable, hyperglycemic and hypertriglyceridemic with triglyceride level of 392 while on propofol. Blood gases remain adequate with a PO2 of 82 on 40% with 9 of PEEP, PCO2 is down to 52with current settings Exam Physical Exam Vital Signs: Temp Pulse Resp BP Pulse Ox O2 Del Method O2 Flow Rate 98.9 F 76 20 176/89 H 94 L Mechanical Ventilation 65 11/09/22 12:00 11/09/22 12:44 11/09/22 12:00 11/09/22 12:44 11/09/22 12:00 11/09/22 12:00 11/07/22 00:00 FiO2 40 11/09/22 13:00 Narrative: General: Patient is sedated, on muscle relaxant with Nimbex, no spontaneous movement, on the vent Eyes: Pupils equal round reactive to light HEENT: Normocephalic, atraumatic, oral mucosa moist Neck: Supple no lymphadenopathy or thyromegaly Cardiovascular: S1, S2, normal sounds, no murmurs or gallops noted, regular rhythm Lungs: Markedly diminished breath sounds over the right hemithorax with an equalhemithoracic expansion, improved following placement of second chest tube Extremities: No significant peripheral edema, peripheral pulses adequate Neurologic: Sedated, paralyzed, on the vent Objective Intake and Output I&O - Last 24 Hours: Intake & Output 11/08/22 11/09/22 11/09/22 23:59 07:59 15:59 Intake Total 772 / 2472 492 / 892 400 / 892 Output Total 637 / 1442 646 / 666 20 / 666 Balance 135 / 1030 -154 / 226 380 / 226 Weight 103.6 kg Labs 11/09/22 04:28 11/09/22 04:28 Microbiology Micro: Microbiology 11/05/22 05:52 Blood Culture - Preliminary Blood - Right Hand No Growth 4 Days 11/05/22 05:52 Blood Culture - Preliminary Blood - Left Antecubital No Growth 4 Days Assessment/Plan Assessment/Plan (1) Acute hypoxemic respiratory failure: Plan: Patient presented with severe community-acquired pneumonia associated with bilateral infiltrates suggestive of severe acute lung injury, has had progressive pleuritic pain on the right suggesting necrotizing component that possibly led to tension pneumothorax once intubated and placed on positive ventilation. (2) Tension pneumothorax: Plan: Patient required placement of 32 Finnish chest tube to keep up with his 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 Since (3) Hilar lymphadenopathy: Plan: This could be reactive, there was no evidence of compromised airway as reported from the outlying hospital, patient expanded well once intubated, will continue to monitor for now (4) Atelectasis: Plan: Improved with positive pressure ventilation (5) Community acquired pneumonia: Plan: Given the severity of this presentation consideration of Legionella as well as strep pneumoniae is reasonable, work-up ordered per infectious disease (6) Nicotine dependence: Plan: This is potentially leading to underlying undiagnosed COPD Plan * Nimbex was weaned off earlier today, patient was very agitated moving constantly in bed once off Nimbex despite increasing level of sedation and pain control, he had very little air leak from chest tube, and developed s evere hypoxia on the vent requiring Ambu bagging to maintain oxygenation, with that he was able to come up only to the mid 80s percentile. I was informed at that point, stat chest x-ray was done while I was evaluating him, I noticed significant subcu air on the right, and near absent breath sounds, try to flush the chest tube and aspirate without improvement, by then chest x-ray was done and confirmed large pneumothorax again indicating poor access of chest tube to his large pneumo hence a new midclavicular anterior chest tube was placed emergency with rapid improvement in his oxygenation. 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 This improved rapidly with placement of an anterior apical chest tube. * Patient developed significant subcutaneous emphysema as a result of this decompensation * His x-ray before this and this morning was more consistent with improving infiltrates otherwise * Will continue current treatment plans, increase level of sedation without muscle relaxant to avoid prolonged myopathy. * CC time 45 minutes Documented By: Ismael Huitron MD 11/09/22 1318 Signed By: <Electronically signed by Ismael Huitron MD> 11/09/22 [address] [facility] Work Phone: [phone]) 362-823605-03-2023 [facility] Progress note Author Sanjay Holt [facility] November 09, 2022 9:12am Note Date/Time November 09, 2022 9:08am [facility] [address] [place] [address] Infect. Disease Progress Note Signed Patient: Lori Anton MR#: [id number] : 1965 Acct:[id number] Age/Sex: 57 / M Adm Date: 3 Loc: Room: [address] [place] [address] Type: ADM IN Attending Dr: Rubi Ramos MD Copies to: ~ Date of Service: 11/09/2022 Subjective Interval history: Patient remains on the ventilator. Sedated. Vital signs stable. Exam Physical Exam Vital Signs: Temp Pulse Resp BP Pulse Ox O2 Del Method O2 Flow Rate 97.7 F 65 20 130/77 95 Mechanical Ventilation 65 11/09/22 08:00 11/09/22 08:00 11/09/22 08:00 11/09/22 08:00 11/09/22 08:00 11/09/22 08:00 11/07/22 00:00 FiO2 40 11/09/22 08:00 Const General: ill appearing and other (sedated on vent) Orientation: other (sedated) HEENT Head: normal to inspection Mouth: other (ETT) Eyes General: appearance normal, both eyes and all related structures Neck Neck: normal visual inspection (11/07 R IJ CVC) Chest Chest palpation & inspection: abnormal inspection of the chest (chest tube on right) Resp Effort & Inspection: other (on vent) Auscultation: diminished lung sounds Cardio Rate: regular rate GI Palpation: soft and nontender Auscultation: normal bowel sounds Skin General: no rashes or lesions noted Neuro General: other (sedated) Extrem General: normal to inspection Objective Labs CBC/BMP: CBC, BMP 11/09/22 11/09/22 04:28 04:28 Corrected WBC 14.6 H Uncorrected WBC Count 14.6 H RBC 3.40 L Hgb 10.3 L Hct 31.0 L Plt Count 408 Sodium 136 Potassium 4.5 Chloride 99 Carbon Dioxide 32.5 H Anion Gap 9.0 BUN 19 Creatinine 0.40 L Calcium 7.7 L Labs: 11/09/22 04:28 BUN 19 Creatinine 0.40 L Laboratory Tests 11/07/22 11/07/22 11/07/22 11:49 12:45 12:45 HIV 1&2 Antibody Screen L.pneumophila IgM Grp 1 <0.91 Ur L.pneumophila Ag Negative S. pneumoniae Ag Intrp Negative 11/08/22 09:47 HIV 1&2 Antibody Screen Non reactive L.pneumophila IgM Grp 1 Ur L.pneumophila Ag S. pneumoniae Ag Intrp Microbiology Microbiology: Microbiology - Results from entire visit 11/05/22 05:52 Blood - Right Hand Blood Culture - Preliminary No Growth 4 Days 11/05/22 05:52 Blood - Left Antecubital Blood Culture - Preliminary No Growth 4 Days 11/05/22 10:30 Sputum - Expectorated Aerobic Culture - Final Lyndsay albicans 11/05/22 10:30 Sputum - Expectorated Gram Stain - Final 11/05/22 09:40 Nasopharyngeal Respiratory Panel (PCR) - Final Allergies and Medications Allergies and Active Meds Allergies erythromycin base Allergy (Verified 11/05/22 04:16) Rash Penicillins Allergy (Verified 11/05/22 04:16) Anaphylaxis Active Medications Acetaminophen (Acetaminophen 500 Mg Tablet) 1,000 mg PO Q6HR PRN PRN Reason: Pain Scale 1 - 3 or fever Stop: 11/05/23 03:35 Last Admin: 11/05/22 21:39 Dose: 1,000 mg Albuterol (Albuterol Neb 2.5 Mg/3 Ml Vial.Neb) 2.5 mg INHALATION Q3H PRN PRN Reason: Cough/Wheeze Stop: 11/05/23 03:35 Albuterol (Albuterol Hfa 200 Puff/18 Gm Inhaler) 6 puff VENT Q6HR [facility] Stop: 11/07/23 11:59 Last Admin: 11/09/22 06:31 Dose: 6 puff Albuterol/Ipratropium (Ipratropium/Albuterol 0.5-3 Mg 3 Ml Ampul.Neb) 3 ml INHALATION QID.RESP SHANE Stop: 11/05/23 07:59 Last Admin: 11/07/22 09:05 Dose: Not Given Amlodipine Besylate (Amlodipine 10 Mg Tablet) 10 mg PO DAILY@0600 [facility] Stop: 11/05/23 08:59 Last Admin: 11/08/22 07:00 Dose: 10 mg Budesonide (Budesonide 0.5 Mg/2 Ml Ampul.Neb) 0.5 mg INHALATION BID [facility] Stop: 11/05/23 11:39 Last Admin: 11/06/22 20:43 Dose: 0.5 mg Buprenorphine HCl (Buprenorphine Hcl 2 Mg Tab.Subl) 2 mg SUBLINGUAL BID@0600,1800 [facility] Stop: 05/06/23 05:59 Last Admin: 11/07/22 06:38 Dose: 2 mg Carvedilol (Carvedilol 12.5 Mg Tablet) 12.5 mg PO BID@0600,1800 [facility] Stop: 11/06/23 20:59 Last Admin: 11/08/22 07:00 Dose: 12.5 mg Chlorhexidine Gluconate (Chlorhexidine Gluconate 0.12% 15 Ml Udc) 15 ml MUCOUS MEM BID [facility] Stop: 11/07/23 09:09 Last Admin: 11/09/22 08:28 Dose: 15 ml Docusate Sodium (Docusate Liquid 100 Mg/10 Ml Udc) 100 mg OG-TUBE BID [facility] Stop: 11/07/23 08:59 Last Admin: 11/09/22 08:28 Dose: 100 mg Enoxaparin Sodium (Enoxaparin 40 Mg/0.4 Ml Syringe) 40 mg SUBCUT DAILY@1000 [facility] Stop: 11/06/23 09:59 Last Admin: 11/08/22 10:14 Dose: 40 mg Fluoxetine HCl (Fluoxetine Soln 20 Mg/5 Ml) 40 mg PO HS [facility] Stop: 11/07/23 21:59 Last Admin: 11/08/22 21:00 Dose: 40 mg Fluoxetine HCl (Fluoxetine Soln 20 Mg/5 Ml) 20 mg PO DAILY@0600 [facility] Stop: 11/08/23 05:59 Last Admin: 11/09/22 05:06 Dose: 20 mg Guaifenesin (Guaifenesin 600 Mg Tab.Er.12h) 1,200 mg PO BID [facility] Stop: 11/06/23 12:54 Last Admin: 11/06/22 20:51 Dose: 1,200 mg Levofloxacin (Levaquin) 750 mg in 150 mls @ 100 mls/hr IV Q24H [facility] Last Infusion: 11/08/22 23:10 Dose: Infused Clindamycin Phosphate (Cleocin) 600 mg in 50 mls @ 100 mls/hr IV Q8H [facility] Last Infusion: 11/09/22 02:31 Dose: Infused Fentanyl (Fentanyl 1,000 Mcg/100 Ml D5w) 1,000 mcg in 100 mls @ 2.5 mls/hr IV .Q24H [facility]; Protocol Last Admin: 11/08/22 21:01 Dose: 100 mcg/hr, 10 mls/hr Propofol (Diprivan) 1,000 mg in 100 mls @ 12.6 mls/hr IV .Q7H57M [facility]; Protocol Stop: 11/07/23 07:59 Last Titration: 11/09/22 05:39 Dose: 40 mcg/kg/min, 25.2 mls/hr Sodium Chloride (0.9% Sodium Chloride 1,000 Ml) 1,000 mls @ 75 mls/hr IV .[id number] [facility] Stop: 11/07/23 09:59 Last Admin: 11/09/22 06:07 Dose: 75 mls/hr Cisatracurium Besylate 200 mg/ (Dextrose) 200 mls @ 12.6 mls/hr IV .[id number] [facility]; Protocol Stop: 11/07/23 10:29 Last Titration: 11/09/22 00:34 Dose: 3 mcg/kg/min, 18.9 mls/hr Insulin Aspart (Insulin Aspart 300 Units/3 Ml Insuln.Pen) 0 units SUBCUT Q6HR [facility]; Protocol Stop: 11/08/23 11:59 Last Admin: 11/09/22 05:26 Dose: Not Given Ketorolac Tromethamine (Ketorolac Tromethamine 30 Mg/Ml Vial) 30 mg IV-PUSH Q6HPRN PRN Reason: Pain Scale 7 - 10 Stop: 11/11/22 12:51 Last Admin: 11/07/22 04:21 Dose: 30 mg Lisinopril (Lisinopril 20 Mg Tablet) 20 mg PO DAILY@0600 [facility] Stop: 11/06/23 08:59 Last Admin: 11/08/22 07:00 Dose: 20 mg Magnesium Hydroxide (Magnesium Hydroxide Susp 30 Ml Udc) 30 ml PO DAILY PRN PRN Reason: Constipation Stop: 11/07/23 07:44 Methylprednisolone Sodium Succinate (Methylprednisolone Sod Succ/Pf 40 Mg/Ml (1ml) Vial) 40 mg IV-PUSH Q8HR [facility] Stop: 11/05/23 13:59 Last Admin: 11/09/22 05:06 Dose: 40 mg Metoprolol Tartrate (Metoprolol Tartrate 5 Mg/5 Ml Vial) 5 mg IV-PUSH Q5M PRN PRN Reason: Tachyarrhythmias Last Admin: 11/07/22 05:25 Dose: 5 mg Nicotine (Nicotine Patch 21 Mg/24hr 1 Each Patch.Td24) 1 each TRANSDERML DAILY PRN PRN Reason: Nicotine Cravings Stop: 12/16/22 09:01 Pantoprazole Sodium (Pantoprazole 40 Mg Vial) 40 mg IV-PUSH DAILY [facility] Stop: 11/08/23 08:59 Last Admin: 11/09/22 08:28 Dose: 40 mg Potassium Chloride (Potassium Chloride Er 20 Meq Tab.Er.Prt) 40 meq PO DAILY PRN PRN Reason: Hypokalemia Stop: 11/05/23 06:40 Last Admin: 11/05/22 08:43 Dose: 40 meq Sennosides (Sennosides Syrup 8.8 Mg/5 Ml Udc) 8.8 mg PO BID [facility] Stop: 11/07/23 08:59 Last Admin: 11/09/22 08:28 Dose: 8.8 mg Sodium Chloride (Sodium Chloride 0.9 % 10 Ml Syringe) 0 ml IV-PUSH QSHIFT [facility] Stop: 11/05/23 05:59 Last Admin: 11/09/22 05:07 Dose: 10 ml Sodium Chloride (Sodium Chloride 0.9 % 10 Ml Syringe) 10 ml IV-PUSH PRN PRN PRN Reason: Flush Stop: 11/07/23 08:37 Sodium Chloride (Sodium Chloride 0.9 % 10 Ml Vial.Pf) 10 ml INJECTION DAILY SHANE Stop: 11/08/23 08:59 Last Admin: 11/09/22 08:28 Dose: 10 ml Tizanidine HCl (Tizanidine 4 Mg Tablet) 4 mg PO BID@0900,1400 PRN PRN Reason: Muscle Spasm Stop: 11/05/23 06:39 Last Admin: 11/06/22 23:06 Dose: 4 mg Tizanidine HCl (Tizanidine 4 Mg Tablet) 8 mg PO HS PRN PRN Reason: Muscle Spasm Stop: 11/05/23 07:18 Last Admin: 11/05/22 21:39 Dose: 8 mg A&P - Infectious Disease Assessment/Plan (1) Acute hypoxemic respiratory failure: Code(s): J96.01 - Acute respiratory failure with hypoxia Status: Acute (2) Parainfluenza: Code(s): B34.8 - Other viral infections of unspecified site Status: Acute (3) Community acquired pneumonia: Code(s): J18.9 - Pneumonia, unspecified organism Status: Acute Plan Patient continues on Levaquin and clindamycin. . Patient with community-acquired pneumonia. Sputum culture with light growth of Lyndsay albicans which is likely not pathogenic. Blood cultures remain negative. Respiratory PCR panel at [place] without targeted pathogen but parainfluenza 3 virus targeted here. Legionella urine antigen negative, Legionella antibodies negative. Urinestrep antigen negative. HIV negative. Continues on Levaquin and Flagyl. Day 5of antibiotics Documented By: Sanjay Holt MD 11/09/22905 Signed By: <Electronically signed by MD Sanjay Holt> 11/09/22911 [facility] Work Phone: 1(658) 301-989705-03-2023 Progress note Author Rubi Ramos [facility] November 09, 2022 1:09am Note Date/Time November 08, 2022 7:20pm [facility] [address] [place] [address] Hospitalist Progress Note Signed Patient: Lori Anton MR#: [id number] : 1965 Acct:[id number] Age/Sex: 57 / M Adm Date: 3 Loc: Room: [address] [place] [address] Type: ADM IN Attending Dr: Rubi Ramos MD Copies to: ~ Date of Service: 11/08/2022 Subjective Subjective Narrative: Assessment And Plan Acute respiratory failure with hypercapnia remain on MV The patient developed respiratory distress he eventually required intubation 11/07 Maintain O2 supplement via Mechanical ventilator PPI for GI Prophylaxis Keep head of bed > 30 degree Pulmonary consulted recommendation appreciated Community-acquired pneumonia /Parainfluenza Infection Afebrile today , leukocytosis is better CT chest 11/06 shows Increasing developing groundglass and patchy regions of consolidation of the lungs. Nebulizers, Mucinex, ceftriaxone, doxycycline Respiratory (Upper) Panel, PCR detected Parainfluenza Virus 3 Sputum Cx didn?t grow any significant pathogen Blood Cx remain negtive CXR ED shows no acute cardiopulmonary abnormality, chronic changes ID was consulted, recommendation appreciated. Board spectrum Abx Tension right pneumothorax s/p chest tube placement INTERVAL HPI: As Above, Pt resting in bed. intubated Chronic diseases: Unless mentioned Above, Essential home medications have been continued. DVT Px: Addressed Disposition: To be determined Plan of care Discussed with: the medical team Exam Physical Exam Vital Signs: Temp Pulse Resp BP Pulse Ox O2 Del Method O2 Flow Rate 36.5 C 66 20 124/70 94 L Mechanical Ventilation 65 11/08/22 15:00 11/08/22 19:00 11/08/22 19:00 11/08/22 19:00 11/08/22 19:00 11/08/22 19:00 11/07/22 00:00 FiO2 40 11/08/22 19:00 Narrative: GENERAL: in acute stress, Intubated NECK: no JVD, supple, no thyromegaly LUNGS:diminshed breathing sounds in the right. on MV CARDIAC: normal S1 and S2; no rubs, murmurs, or gallops ABDOMEN: Abdomen soft. BS normal. No palpable masses or organomegaly. EXTREMITIES: no edema in LE bilaterally NEURO: Limited Exam, Sedated and intubated PSYCH: Sedated and intubated Objective Lab Results 11/08/22 05:49 11/08/22 05:49 Microbiology Results Microbiology 11/05/22 05:52 Blood - Right Hand Blood Culture - Preliminary No Growth 3 Days 11/05/22 05:52 Blood - Left Antecubital Blood Culture - Preliminary No Growth 3 Days Meds Allergies and Active Meds Allergies erythromycin base Allergy (Verified 11/05/22 04:16) Rash Penicillins Allergy (Verified 11/05/22 04:16) Anaphylaxis Active Meds: Active Medications Generic Name Dose Route Start Last Admin Trade Name Freq PRN Reason Stop Dose Admin Acetaminophen 1,000 mg 11/05/22 03:36 11/05/22 21:39 Acetaminophen 500 Mg Tablet PO 11/05/23 03:35 1,000 mg Q6HR PRN Administration Pain Scale 1 - 3 or fever Albuterol 2.5 mg 11/05/22 03:36 Albuterol Neb 2.5 Mg/3 Ml Vial.Neb INHALATION 11/05/23 03:35 Q3H PRN Cough/Wheeze Albuterol 6 puff 11/07/22 12:00 11/08/22 18:08 Albuterol Hfa 200 Puff/18 Gm Inhaler VENT 11/07/23 11:59 6 puff Q6HR SHANE Administration Albuterol/Ipratropium 3 ml 11/05/22 08:00 11/07/22 09:05 Ipratropium/Albuterol 0.5-3 Mg 3 Ml Ampul.Neb INHALATION 11/05/23 07:59 NotGiven QID.RESP SHANE Amlodipine Besylate 10 mg 11/07/22 06:00 11/08/22 07:00 Amlodipine 10 Mg Tablet PO 11/05/23 08:59 10 mg DAILY@0600 SHANE Administration Budesonide 0.5 mg 11/05/22 11:40 11/06/22 20:43 Budesonide 0.5 Mg/2 Ml Ampul.Neb INHALATION 11/05/23 11:39 0.5 mg BID SHANE Administration Buprenorphine HCl 2 mg 11/07/22 06:00 11/07/22 06:38 Buprenorphine Hcl 2 Mg Tab.Subl SUBLINGUAL 05/06/23 05:59 2 mg BID@0600,1800 SHANE Administration Carvedilol 12.5 mg 11/06/22 21:00 11/08/22 07:00 Carvedilol 12.5 Mg Tablet PO 11/06/23 20:59 12.5 mg BID@0600,1800 SHANE Administration Chlorhexidine Gluconate 15 ml 11/07/22 09:10 11/08/22 10:13 Chlorhexidine Gluconate 0.12% 15 Ml Udc MUCOUS MEM 11/07/23 09:09 15 ml BID SHANE Administration Docusate Sodium 100 mg 11/07/22 09:00 11/08/22 10:13 Docusate Liquid 100 Mg/10 Ml Udc OG-TUBE 11/07/23 08:59 100 mg BID SHANE Administration Enoxaparin Sodium 40 mg 11/06/22 10:00 11/08/22 10:14 Enoxaparin 40 Mg/0.4 Ml Syringe SUBCUT 11/06/23 09:59 40 mg DAILY@1000 SHANE Administration Fluoxetine HCl 40 mg 11/07/22 22:00 11/07/22 21:57 Fluoxetine Soln 20 Mg/5 Ml PO 11/07/23 21:59 40 mg HS SHANE Administration Fluoxetine HCl 20 mg 11/08/22 06:00 11/08/22 07:00 Fluoxetine Soln 20 Mg/5 Ml PO 11/08/23 05:59 20 mg DAILY@0600 SHANE Administration Guaifenesin 1,200 mg 11/06/22 12:55 11/06/22 20:51 Guaifenesin 600 Mg Tab.Er.12h PO 11/06/23 12:54 1,200 mg BID SHANE Administration Levofloxacin 750 mg in 150 mls @ 100 mls/hr 11/05/22 21:00 11/07/22 23:33 Levaquin IV Infused Q24H [facility]ANE Infusion Clindamycin Phosphate 600 mg in 50 mls @ 100 mls/hr 11/05/22 18:00 11/08/22 17:45 Cleocin IV 100 mls/hr Q8H SHANE Administration Fentanyl 1,000 mcg in 100 mls @ 2.5 mls/hr 11/07/22 07:45 11/08/22 10:50 Fentanyl 1,000 Mcg/100 Ml D5w IV 100 mcg/hr .Q24H SHANE 10 mls/hr Administration Protocol 25 MCG/HR Propofol 1,000 mg in 100 mls @ 12.6 mls/hr 11/07/22 08:00 11/08/22 18:42 Diprivan IV 11/07/23 07:59 35 mcg/kg/min .Q7H57M SHANE 22.05 mls/hr Administration Protocol 20 MCG/KG/MIN Sodium Chloride 1,000 mls @ 75 mls/hr 11/07/22 10:00 11/08/22 14:00 0.9% Sodium Chloride 1,000 Ml IV 11/07/23 09:59 Not Given .[id number] SHANE Cisatracurium Besylate 200 mg/ 200 mls @ 12.6 mls/hr 11/07/22 10:30 11/08/22 17:38 Dextrose IV 11/07/23 10:29 3 mcg/kg/min .[id number] SHANE 18.9 mls/hr Titration Protocol 2 MCG/KG/MIN Norepinephrine Bitartrate 8 mg in 250 mls @ 3.75 mls/hr 11/07/22 17:15 11/08/22 17:39 Levophed IV 11/07/23 17:14 Not Given .Q24H [facility] Protocol 2 MCG/MIN Insulin Aspart 0 units 11/08/22 12:00 11/08/22 17:45 Insulin Aspart 300 Units/3 Ml Insuln.Pen SUBCUT 11/08/23 11:59 Not Given Q6HR [facility] Protocol Ketorolac Tromethamine 30 mg 11/06/22 12:52 11/07/22 04:21 Ketorolac Tromethamine 30 Mg/Ml Vial IV-PUSH 11/11/22 12:51 30 mg Q6H PRN Administration Pain Scale 7 - 10 Lisinopril 20 mg 11/07/22 06:00 11/08/22 07:00 Lisinopril 20 Mg Tablet PO 11/06/23 08:59 20 mg DAILY@0600 SHANE Administration Magnesium Hydroxide 30 ml 11/07/22 07:45 Magnesium Hydroxide Susp 30 Ml Udc PO 11/07/23 07:44 DAILY PRN Constipation Methylprednisolone Sodium Succinate 40 mg 11/05/22 14:00 11/08/22 14:00 Methylprednisolone Sod Succ/Pf 40 Mg/Ml (1ml) Vial IV-PUSH 11/05/23 13:59 40 mg Q8HR SHANE Administration Metoprolol Tartrate 5 mg 11/07/22 05:11 11/07/22 05:25 Metoprolol Tartrate 5 Mg/5 Ml Vial IV-PUSH 5 mg Q5M PRN Administration Tachyarrhythmias Nicotine 1 each 11/05/22 04:33 Nicotine Patch 21 Mg/24hr 1 Each Patch.Td24 TRANSDERML 12/16/22 09:01 DAILY PRN Nicotine Cravings Pantoprazole Sodium 40 mg 11/08/22 09:00 11/08/22 10:14 Pantoprazole 40 Mg Vial IV-PUSH 11/08/23 08:59 40 mg DAILY SHANE Administration Potassium Chloride 40 meq 11/05/22 06:41 11/05/22 08:43 Potassium Chloride Er 20 Meq Tab.Er.Prt PO 11/05/23 06:40 40 meq DAILY PRN Administration Hypokalemia Sennosides 8.8 mg 11/07/22 09:00 11/08/22 10:13 Sennosides Syrup 8.8 Mg/5 Ml Udc PO 11/07/23 08:59 8.8 mg BID SHANE Administration Sodium Chloride 0 ml 11/05/22 06:00 11/08/22 14:00 Sodium Chloride 0.9 % 10 Ml Syringe IV-PUSH 11/05/23 05:59 10 ml QSHIFT SHANE Administration Sodium Chloride 10 ml 11/07/22 08:38 Sodium Chloride 0.9 % 10 Ml Syringe IV-PUSH 11/07/23 08:37 PRN PRN Flush Sodium Chloride 10 ml 11/08/22 09:00 11/08/22 10:14 Sodium Chloride 0.9 % 10 Ml Vial.Pf INJECTION 11/08/23 08:59 10 ml DAILY SHANE Administration Tizanidine HCl 4 mg 11/05/22 06:40 11/06/22 23:06 Tizanidine 4 Mg Tablet PO 11/05/23 06:39 4 mg BID@0900,1400 PRN Administration Muscle Spasm Tizanidine HCl 8 mg 11/05/22 07:19 11/05/22 21:39 Tizanidine 4 Mg Tablet PO 11/05/23 07:18 8 mg HS PRN Administration Muscle Spasm A&P - Hospitalist Assessment/Plan (1) Community acquired pneumonia: (2) HTN (hypertension): (3) Acute hypoxemic respiratory failure: (4) Parainfluenza: Plan . Documented By: Rubi Ramos MD 11/08/221919 Signed By: <Electronically signed by Rubi Ramos MD> 11/09/22 0109 [facility] Work Phone: 1(676) 493-219505-02-2023 Progress note Author Ismael Huitron [facility] November 08, 2022 3:23pm Note Date/Time November 08, 2022 3:23pm [facility] [address] [place] [address] Pulmonology Progress Note Signed Patient: Lori Anton MR#: [id number] : 1965 Acct:[id number] Age/Sex: 57 / M Adm Date: 3 Loc: Room: [address] [place] [address] Type: ADM IN Attending Dr: Rubi Ramos MD Copies to: ~ Date of Service: 11/08/2022 Subjective Subjective Narrative: Patient has stabilized from the respiratory standpoint overnight but had worsening air leak from his chest tube now continuous air leak is noted this morning, chest x-ray showed worsening right pneumothorax, immediately after seeing that I placed a 32 Finnish chest tube in addition to the small pneumothorax catheter in place, he had continuous air leak from both, and chest x-ray showed complete reexpansion of the lung after the second chest tube placement. This was accompanied by improving oxygenation he is down to 40% [id number]. I started weaning PEEP down as well to limit further barotrauma, and continuous bronchopleural fistula. The degree of air leak suggest severe necrotizing pneumonia and leading to pneumothorax and large bronchopleural fistula, this could be a complicated and prolonged process to heal, ultimately could require surgery if nonhealing spontaneously. The sooner we can eliminate positive pressure ventilation the better but obviously we're not close to that point Exam Physical Exam Vital Signs: Temp Pulse Resp BP Pulse Ox O2 Del Method O2 Flow Rate 96.9 F L 64 20 112/67 97 Mechanical Ventilation 65 11/08/22 08:00 11/08/22 14:00 11/08/22 14:00 11/08/22 14:00 11/08/22 14:00 11/08/22 14:00 11/07/22 00:00 FiO2 40 11/08/22 14:00 Narrative: General: Patient is sedated, on muscle relaxant with Nimbex, no spontaneous movement, on the vent Eyes: Pupils equal round reactive to light HEENT: Normocephalic, atraumatic, oral mucosa moist Neck: Supple no lymphadenopathy or thyromegaly Cardiovascular: S1, S2, normal sounds, no murmurs or gallops noted, regular rhythm Lungs: Markedly diminished breath sounds over the right hemithorax with an equalhemithoracic expansion, improved following placement of second chest tube Extremities: No significant peripheral edema, peripheral pulses adequate Neurologic: Sedated, paralyzed, on the vent Objective Intake and Output I&O - Last 24 Hours: Intake & Output 11/07/22 11/08/22 11/08/22 23:59 07:59 15:59 Intake Total 1530 / 2430 350 / 550 200 / 550 Output Total 530 / 1215 455 / 805 350 / 805 Balance 1000 / 1215 -105 / -255 -150 / -255 Weight 102.5 kg Labs 11/08/22 05:49 11/08/22 05:49 Microbiology Micro: Microbiology 11/05/22 05:52 Blood Culture - Preliminary Blood - Right Hand No Growth 3 Days 11/05/22 05:52 Blood Culture - Preliminary Blood - Left Antecubital No Growth 3 Days 11/05/22 10:30 Aerobic Culture - Final Sputum - Expectorated Lyndsay albicans Gram Stain - Final Assessment/Plan Assessment/Plan (1) Acute hypoxemic respiratory failure: Plan: Patient presented with severe community-acquired pneumonia associated with bilateral infiltrates suggestive of severe acute lung injury, has had progressive pleuritic pain on the right suggesting necrotizing component that possibly led to tension pneumothorax once intubated and placed on positive ventilation. (2) Tension pneumothorax: Plan: Patient required placement of 32 Finnish chest tube to keep up with his large airleak suggestive of large bronchopleural fistula (3) Hilar lymphadenopathy: Plan: This could be reactive, there was no evidence of compromised airway as reported from the outlying hospital, patient expanded well once intubated, will continue to monitor for now (4) Atelectasis: Plan: Improved with positive pressure ventilation (5) Community acquired pneumonia: Plan: Given the severity of this presentation consideration of Legionella as well as strep pneumoniae is reasonable, work-up ordered per infectious disease (6) Nicotine dependence: Plan: This is potentially leading to underlying undiagnosed COPD Plan * Continue invasive mechanical ventilation, FiO2 is down to 40%, weaning PEEP down by 1 cm of water every 6 hours as tolerated * Emergent second right chest tube placement for tension pneumothorax, despite having small pneumothorax catheter in place with continuous air leak * Multiple adjustments on the vent settings to risk of barotrauma, maintain adequate oxygenation and ventilation all done at the bedside * Initiate enteral feeding as tolerated * Antibiotic management per infectious disease recommendations * Continue both chest tubes to negative pressure suction at -20 cm of water and monitor chest x-rays daily and as needed * Aggressive sedation with propofol, fentanyl, and muscle relaxation Nimbex till tomorrow morning, patient remains stable with current chest tubes, and able to maintain oxygenation as we are weaning PEEP down, then Nimbex could be discontinued in the morning * CC time 42-minute Documented By: Ismael Huitron MD 11/08/22 1516 Signed By: <Electronically signed by Ismael Huitron MD> 11/08/22 1524 [facility] Work Phone: 1(199) 866-679305-02-2023 [facility] Progress note Author Sanjay Holt [facility] November 08, 2022 8:52am Note Date/Time November 08, 2022 8:47am [facility] [address] [place] [address] Infect. Disease Progress Note Signed Patient: Lori Anton MR#: [id number] : 1965 Acct:[id number] Age/Sex: 57 / M Adm Date: 3 Loc: Room: [address] [place] [address] Type: ADM IN Attending Dr: Rubi Ramos MD Copies to: ~ Date of Service: 11/08/2022 Subjective Interval history: Patient remains on the ventilator. New central line in right neck. Chest tube remains on the right. Sedated/paralyzed for respiratory status Exam Physical Exam Vital Signs: Vital Signs Temp Pulse Resp BP Pulse Ox O2 Del Method FiO2 11/08/22 07:54 60 96/54 L 11/08/22 07:00 60 20 96/54 L 100 Mechanical Ventilation 80 11/08/22 07:00 80 11/08/22 05:35 62 20 80 11/08/22 06:00 64 20 103/63 100 Mechanical Ventilation 80 11/08/22 05:00 76 20 147/87 H 99 Mechanical Ventilation 80 11/08/22 04:00 60 20 101/63 99 Mechanical Ventilation 80 11/08/22 06:00 80 11/08/22 04:00 Mechanical Ventilation 80 11/08/22 00:00 Mechanical Ventilation 90 11/08/22 05:00 80 11/08/22 04:00 70 11/08/22 04:55 70 11/08/22 04:01 60 103/64 11/08/22 04:01 60 103/64 11/08/22 03:00 68 20 98/59 L 99 Mechanical Ventilation 80 11/08/22 03:00 80 11/08/22 01:02 62 20 80 11/08/22 02:00 80 11/08/22 02:00 63 20 103/63 99 Mechanical Ventilation 80 11/08/22 01:00 62 20 107/66 99 Mechanical Ventilation 80 11/08/22 00:00 98.0 F 64 20 102/62 99 Mechanical Ventilation 90 11/07/22 20:00 Mechanical Ventilation 95 11/08/22 01:00 80 11/08/22 00:00 90 11/08/22 00:31 61 102/62 11/07/22 23:03 61 102/62 11/07/22 23:00 70 20 101/60 99 Mechanical Ventilation 90 11/07/22 23:00 90 11/07/22 22:00 90 11/07/22 21:00 90 11/07/22 20:00 90 11/07/22 19:00 95 11/07/22 22:00 66 20 109/68 99 Mechanical Ventilation 90 11/07/22 21:00 68 20 109/66 99 Mechanical Ventilation 90 11/07/22 20:00 98.2 F 68 20 103/64 99 Mechanical Ventilation 90 11/07/22 19:00 64 20 116/90 98 Mechanical Ventilation 95 11/07/22 20:35 71 20 90 11/07/22 18:30 66 112/71 11/07/22 17:46 66 112/71 11/07/22 18:00 67 20 112/71 98 Mechanical Ventilation 95 11/07/22 18:00 95 11/07/22 16:53 62 20 95 11/07/22 17:00 60 20 86/51 L 99 Mechanical Ventilation 100 11/07/22 17:00 100 11/07/22 16:00 69 20 94/63 L 97 Mechanical Ventilation 100 11/07/22 16:00 100 11/07/22 15:00 98.8 F 62 20 87/53 L 98 Mechanical Ventilation 100 11/07/22 15:00 100 11/07/22 14:00 104 H 20 88/58 L 96 Mechanical Ventilation 100 11/07/22 13:00 105 H 20 87/58 L 97 Mechanical Ventilation 100 11/07/22 14:00 100 11/07/22 13:00 100 11/07/22 13:47 104 H 88/62 L 11/07/22 13:47 104 H 88/62 L 11/07/22 10:15 78 91/72 L 11/07/22 10:15 78 91/72 L 11/07/22 12:06 72 20 100 11/07/22 09:54 100 11/07/22 12:00 100 11/07/22 12:00 98.3 F 69 20 88/55 L 96 Mechanical Ventilation 100 11/07/22 11:00 74 24 95/63 L 88 L Mechanical Ventilation 100 11/07/22 10:00 68 20 91/56 L 93 L Mechanical Ventilation 100 11/07/22 09:00 64 20 86/53 L 97 Mechanical Ventilation 11/07/22 11:00 100 11/07/22 10:00 100 11/07/22 09:00 100 Intake and Output 11/07/22 11/08/22 11/08/22 23:59 07:59 15:59 Intake Total 1530 / 2430 350 / 350 Output Total 530 / 1215 455 / 455 Balance 1000 / 1215 -105 / -105 Intake: IV 1500 / 1900 350 / 350 Cisatracurium Besylate 200 mg 200 / 200 In Dextrose 5 % in Water 180 ml @ 2 MCG/KG/MIN 12.6 mls/hr IV .[id number] [facility] Rx#:[id number] Clindamycin 600 mg/50 ml-*D5w* 50 / 150 50 / 50 600 mg In 50 ml @ 100 mls/hr IV Q8H SHANE Rx#:[id number] Sodium Chloride 0.9% 1,000 ml 1 1000 / 1000 ,000 ml @ 75 mls/hr IV .[id number] SHANE Rx#:[id number] fentaNYL 1,000 mcg-*D5W* 1,000 100 / 200 mcg In 100 ml @ 25 MCG/HR 2.5 mls/hr IV .Q24H [facility]ANE Rx#: [id number] levoFLOXacin 750MG-*D5W* 750 mg 150 / 150 In 150 ml @ 100 mls/hr IV Q24H [facility] Rx#:[id number] propofoL 1,000 mg In 100 ml @ 200 / 400 100 / 100 20 MCG/KG/MIN 12.6 mls/hr IV . Q7H57M [facility] Rx#:[id number] Tube Feeding 0 / 0 Tube Irrigant 30 / 30 Output: Urine Amount (Catheter) 500 / 675 425 / 425 Urethral (Jones) 500 / 675 425 / 425 Chest Tube Drainage 30 / 90 30 / 30 Right Upper Anterior Chest 30 / 90 30 / 30 Other: # Bowel Movements 0 # Incontinent Bowel Movements 0 Weight 102.5 kg Date of Last Bowel Movement 11/04/22 Patient Weight 11/08/22 23:59 Weight 102.5 kg Const General: other (sedated on vent) Orientation: other (sedated) HEENT Head: normal to inspection Mouth: other (ETT) Eyes General: appearance normal, both eyes and all related structures Neck Neck: normal visual inspection (5/ R IJ CVC) Chest Chest palpation & inspection: abnormal inspection of the chest (chest tube on right) Resp Effort & Inspection: other (on vent) Auscultation: diminished lung sounds Cardio Rate: regular rate GI Palpation: soft and nontender Auscultation: normal bowel sounds Skin General: no rashes or lesions noted Neuro General: other (sedated) Extrem General: normal to inspection Objective Labs CBC/BMP: CBC, BMP 11/08/22 11/08/22 05:49 05:49 Corrected WBC 17.7 H Uncorrected WBC Count 17.7 H RBC 3.58 L Hgb 10.7 L Hct 32.9 L Plt Count 391 Sodium 134 L Potassium 4.8 Chloride 99 Carbon Dioxide 29.8 Anion Gap 10.0 BUN 22 Creatinine 0.43 L Calcium 8.2 L Labs: 11/08/22 05:49 BUN 22 Creatinine 0.43 L Microbiology Microbiology: Microbiology - Results from entire visit 11/05/22 05:52 Blood - Right Hand Blood Culture - Preliminary No Growth 3 Days 11/05/22 05:52 Blood - Left Antecubital Blood Culture - Preliminary No Growth 3 Days 11/05/22 10:30 Sputum - Expectorated Aerobic Culture - Final Lyndsay albicans 11/05/22 10:30 Sputum - Expectorated Gram Stain - Final 11/05/22 09:40 Nasopharyngeal Respiratory Panel (PCR) - Final Allergies and Medications Allergies and Active Meds Allergies erythromycin base Allergy (Verified 11/05/22 04:16) Rash Penicillins Allergy (Verified 11/05/22 04:16) Anaphylaxis Active Medications Acetaminophen (Acetaminophen 500 Mg Tablet) 1,000 mg PO Q6HR PRN PRN Reason: Pain Scale 1 - 3 or fever Stop: 11/05/23 03:35 Last Admin: 11/05/22 21:39 Dose: 1,000 mg Albuterol (Albuterol Neb 2.5 Mg/3 Ml Vial.Neb) 2.5 mg INHALATION Q3H PRN PRN Reason: Cough/Wheeze Stop: 11/05/23 03:35 Albuterol (Albuterol Hfa 200 Puff/18 Gm Inhaler) 6 puff VENT Q6HR [facility] Stop: 11/07/23 11:59 Last Admin: 11/08/22 05:35 Dose: 6 puff Albuterol/Ipratropium (Ipratropium/Albuterol 0.5-3 Mg 3 Ml Ampul.Neb) 3 ml INHALATION QID.RESP [facility] Stop: 11/05/23 07:59 Last Admin: 11/07/22 09:05 Dose: Not Given Amlodipine Besylate (Amlodipine 10 Mg Tablet) 10 mg PO DAILY@0600 [facility] Stop: 11/05/23 08:59 Last Admin: 11/08/22 07:00 Dose: 10 mg Budesonide (Budesonide 0.5 Mg/2 Ml Ampul.Neb) 0.5 mg INHALATION BID [facility] Stop: 11/05/23 11:39 Last Admin: 11/06/22 20:43 Dose: 0.5 mg Buprenorphine HCl (Buprenorphine Hcl 2 Mg Tab.Subl) 2 mg SUBLINGUAL BID@0600,1800 [facility] Stop: 05/06/23 05:59 Last Admin: 11/07/22 06:38 Dose: 2 mg Carvedilol (Carvedilol 12.5 Mg Tablet) 12.5 mg PO BID@0600,1800 [facility] Stop: 11/06/23 20:59 Last Admin: 11/08/22 07:00 Dose: 12.5 mg Chlorhexidine Gluconate (Chlorhexidine Gluconate 0.12% 15 Ml Udc) 15 ml MUCOUS MEM BID [facility] Stop: 11/07/23 09:09 Last Admin: 11/07/22 21:56 Dose: 15 ml Docusate Sodium (Docusate Liquid 100 Mg/10 Ml Udc) 100 mg OG-TUBE BID [facility] Stop: 11/07/23 08:59 Last Admin: 11/07/22 21:56 Dose: 100 mg Enoxaparin Sodium (Enoxaparin 40 Mg/0.4 Ml Syringe) 40 mg SUBCUT DAILY@1000 [facility] Stop: 11/06/23 09:59 Last Admin: 11/07/22 10:37 Dose: 40 mg Fluoxetine HCl (Fluoxetine Soln 20 Mg/5 Ml) 40 mg PO HS [facility] Stop: 11/07/23 21:59 Last Admin: 11/07/22 21:57 Dose: 40 mg Fluoxetine HCl (Fluoxetine Soln 20 Mg/5 Ml) 20 mg PO DAILY@0600 [facility] Stop: 11/08/23 05:59 Last Admin: 11/08/22 07:00 Dose: 20 mg Guaifenesin (Guaifenesin 600 Mg Tab.Er.12h) 1,200 mg PO BID [facility] Stop: 11/06/23 12:54 Last Admin: 11/06/22 20:51 Dose: 1,200 mg Levofloxacin (Levaquin) 750 mg in 150 mls @ 100 mls/hr IV Q24H [facility] Last Infusion: 11/07/22 23:33 Dose: Infused Clindamycin Phosphate (Cleocin) 600 mg in 50 mls @ 100 mls/hr IV Q8H [facility] Last Infusion: 11/08/22 06:00 Dose: Infused Fentanyl (Fentanyl 1,000 Mcg/100 Ml D5w) 1,000 mcg in 100 mls @ 2.5 mls/hr IV .Q24H [facility]; Protocol Last Admin: 11/08/22 02:00 Dose: 100 mcg/hr, 10 mls/hr Propofol (Diprivan) 1,000 mg in 100 mls @ 12.6 mls/hr IV .Q7H57M [facility]; Protocol Stop: 11/07/23 07:59 Last Admin: 11/08/22 04:01 Dose: 35 mcg/kg/min, 22.05 mls/hr Sodium Chloride (0.9% Sodium Chloride 1,000 Ml) 1,000 mls @ 75 mls/hr IV .[id number] [facility] Stop: 11/07/23 09:59 Last Admin: 11/07/22 23:32 Dose: 75 mls/hr Cisatracurium Besylate 200 mg/ (Dextrose) 200 mls @ 12.6 mls/hr IV .[id number] [facility]; Protocol Stop: 11/07/23 10:29 Last Admin: 11/08/22 06:29 Dose: 2 mcg/kg/min, 12.6 mls/hr Norepinephrine Bitartrate (Levophed) 8 mg in 250 mls @ 3.75 mls/hr IV .Q24H [facility]; Protocol Stop: 11/07/23 17:14 Last Admin: 11/08/22 07:54 Dose: Not Given Ketorolac Tromethamine (Ketorolac Tromethamine 30 Mg/Ml Vial) 30 mg IV-PUSH Q6HPRN PRN Reason: Pain Scale 7 - 10 Stop: 11/11/22 12:51 Last Admin: 11/07/22 04:21 Dose: 30 mg Lisinopril (Lisinopril 20 Mg Tablet) 20 mg PO DAILY@0600 [facility] Stop: 11/06/23 08:59 Last Admin: 11/08/22 07:00 Dose: 20 mg Magnesium Hydroxide (Magnesium Hydroxide Susp 30 Ml Udc) 30 ml PO DAILY PRN PRN Reason: Constipation Stop: 11/07/23 07:44 Methylprednisolone Sodium Succinate (Methylprednisolone Sod Succ/Pf 40 Mg/Ml (1ml) Vial) 40 mg IV-PUSH Q8HR [facility] Stop: 11/05/23 13:59 Last Admin: 11/08/22 07:00 Dose: 40 mg Metoprolol Tartrate (Metoprolol Tartrate 5 Mg/5 Ml Vial) 5 mg IV-PUSH Q5M PRN PRN Reason: Tachyarrhythmias Last Admin: 11/07/22 05:25 Dose: 5 mg Nicotine (Nicotine Patch 21 Mg/24hr 1 Each Patch.Td24) 1 each TRANSDERML DAILY PRN PRN Reason: Nicotine Cravings Stop: 12/16/22 09:01 Pantoprazole Sodium (Pantoprazole 40 Mg Vial) 40 mg IV-PUSH DAILY [facility] Stop: 11/08/23 08:59 Potassium Chloride (Potassium Chloride Er 20 Meq Tab.Er.Prt) 40 meq PO DAILY PRN PRN Reason: Hypokalemia Stop: 11/05/23 06:40 Last Admin: 11/05/22 08:43 Dose: 40 meq Sennosides (Sennosides Syrup 8.8 Mg/5 Ml Udc) 8.8 mg PO BID [facility] Stop: 11/07/23 08:59 Last Admin: 11/07/22 21:56 Dose: 8.8 mg Sodium Chloride (Sodium Chloride 0.9 % 10 Ml Syringe) 0 ml IV-PUSH QSHIFT [facility] Stop: 11/05/23 05:59 Last Admin: 11/08/22 07:00 Dose: 40 ml Sodium Chloride (Sodium Chloride 0.9 % 10 Ml Syringe) 10 ml IV-PUSH PRN PRN PRN Reason: Flush Stop: 11/07/23 08:37 Sodium Chloride (Sodium Chloride 0.9 % 10 Ml Vial.Pf) 10 ml INJECTION DAILY [facility] Stop: 11/08/23 08:59 Tizanidine HCl (Tizanidine 4 Mg Tablet) 4 mg PO BID@0900,1400 PRN PRN Reason: Muscle Spasm Stop: 11/05/23 06:39 Last Admin: 11/06/22 23:06 Dose: 4 mg Tizanidine HCl (Tizanidine 4 Mg Tablet) 8 mg PO HS PRN PRN Reason: Muscle Spasm Stop: 11/05/23 07:18 Last Admin: 11/05/22 21:39 Dose: 8 mg A&P - Infectious Disease Assessment/Plan (1) Acute hypoxemic respiratory failure: Code(s): J96.01 - Acute respiratory failure with hypoxia Status: Acute (2) Parainfluenza: Code(s): B34.8 - Other viral infections of unspecified site Status: Acute (3) Community acquired pneumonia: Code(s): J18.9 - Pneumonia, unspecified organism Status: Acute Plan Patient continues on Levaquin and clindamycin. . Patient would be considered community-acquired pneumonia. Sputum culture without specific pathogen identified as of yet. Blood cultures remain negative. [place] but parainfluenza 3 virus targeted here. Serologies for Legionella antigens for Legionella and strep pneumo sent. We will also send HIV test given patient's drug history. Documented By: Sanjay Holt MD 11/08/22 0845 Signed By: <Electronically signed by MD Sanjay Holt> 11/08/22 0852 [facility] Work Phone: [phone] Progress note Author Rubi Ramos [facility] November 08, 2022 1:26am Note Date/Time November 07, 2022 4:20pm [facility] [address] [place] [address] Hospitalist Progress Note Signed Patient: Lori Anton MR#: [id number] : 1965 Acct:[id number] Age/Sex: 57 / M Adm Date: 3 Loc: Room: [address] [place] [address] Type: ADM IN Attending Dr: Rubi Ramos MD Copies to: ~ Date of Service: 11/07/2022 Subjective Subjective Narrative: Assessment And Plan Acute respiratory failure with hypercapnia The patient developed respiratory distress he eventually required intubation 11/07 Maintain O2 supplement via Mechanical ventilator PPI for GI Prophylaxis Keep head of bed > 30 degree Pulmonary consulted recommendation appreciated Community-acquired pneumonia /Parainfluenza Infection Afebrile today , leukocytosis CT chest 11/06 shows Increasing developing groundglass and patchy regions of consolidation of the lungs. Nebulizers, Mucinex, ceftriaxone, doxycycline Respiratory (Upper) Panel, PCR detected Parainfluenza Virus 3 Sputum Cx didn?t grow any significant pathogen CXR ED shows no acute cardiopulmonary abnormality, chronic changes ID was consulted, recommendation appreciated. Board spectrum Abx Tension right pneumothorax s/p chest tube INTERVAL HPI: As Above, Pt resting in bed. intubated Chronic diseases: Unless mentioned Above, Essential home medications have been continued. DVT Px: Addressed Disposition: To be determined Plan of care Discussed with: the medical team Exam Physical Exam Vital Signs: Temp Pulse Resp BP Pulse Ox O2 Del Method O2 Flow Rate 36.8 C 104 H 20 88/58 L 96 Mechanical Ventilation 65 11/07/22 12:00 11/07/22 14:00 11/07/22 14:00 11/07/22 14:00 11/07/22 14:00 11/07/22 14:00 11/07/22 00:00 FiO2 100 11/07/22 14:00 Narrative: GENERAL: in acute stress, Intubated NECK: no JVD, supple, no thyromegaly LUNGS:diminshed breathing sounds in the right. on MV CARDIAC: normal S1 and S2; no rubs, murmurs, or gallops ABDOMEN: Abdomen soft. BS normal. No palpable masses or organomegaly. EXTREMITIES: no edema in LE bilaterally NEURO: Limited Exam, Sedated and intubated PSYCH: Sedated and intubated Objective Lab Results 11/07/22 05:11 11/07/22 05:11 Microbiology Results Microbiology 11/05/22 10:30 Sputum - Expectorated Aerobic Culture - Final Lyndsay albicans 11/05/22 10:30 Sputum - Expectorated Gram Stain - Final 11/05/22 05:52 Blood - Right Hand Blood Culture - Preliminary No Growth 2 Days 11/05/22 05:52 Blood - Left Antecubital Blood Culture - Preliminary No Growth 2 Days ABG Interpretation ABG results: 11/07/22 11/07/22 05:39 09:13 ABG pH 7.42 7.30 L ABG pCO2 41.8 60.2 H* ABG pO2 56.9 L 115.1 H ABG HCO3 26.4 28.6 ABG Total CO2 27.7 H 30.5 H ABG O2 Saturation 91.2 L 98.0 ABG O2 Content 7.6 7.4 ABG Base Excess 1.8 1.0 Meds Allergies and Active Meds Allergies erythromycin base Allergy (Verified 11/05/22 04:16) Rash Penicillins Allergy (Verified 11/05/22 04:16) Anaphylaxis Active Meds: Active Medications Generic Name Dose Route Start Last Admin Trade Name Freq PRN Reason Stop Dose Admin Acetaminophen 1,000 mg 11/05/22 03:36 11/05/22 21:39 Acetaminophen 500 Mg Tablet PO 11/05/23 03:35 1,000 mg Q6HR PRN Administration Pain Scale 1 - 3 or fever Albuterol 2.5 mg 11/05/22 03:36 Albuterol Neb 2.5 Mg/3 Ml Vial.Neb INHALATION 11/05/23 03:35 Q3H PRN Cough/Wheeze Albuterol 6 puff 11/07/22 12:00 11/07/22 12:03 Albuterol Hfa 200 Puff/18 Gm Inhaler VENT 11/07/23 11:59 6 puff Q6HR SHANE Administration Albuterol/Ipratropium 3 ml 11/05/22 08:00 11/07/22 09:05 Ipratropium/Albuterol 0.5-3 Mg 3 Ml Ampul.Neb INHALATION 11/05/23 07:59 NotGiven QID.RESP SHANE Amlodipine Besylate 10 mg 11/07/22 06:00 11/07/22 06:36 Amlodipine 10 Mg Tablet PO 11/05/23 08:59 10 mg DAILY@0600 SHANE Administration Budesonide 0.5 mg 11/05/22 11:40 11/06/22 20:43 Budesonide 0.5 Mg/2 Ml Ampul.Neb INHALATION 11/05/23 11:39 0.5 mg BID SHANE Administration Buprenorphine HCl 2 mg 11/07/22 06:00 11/07/22 06:38 Buprenorphine Hcl 2 Mg Tab.Subl SUBLINGUAL 05/06/23 05:59 2 mg BID@0600,1800 [facility] Administration Carvedilol 12.5 mg 11/06/22 21:00 11/07/22 06:37 Carvedilol 12.5 Mg Tablet PO 11/06/23 20:59 12.5 mg BID@0600,1800 SHANE Administration Chlorhexidine Gluconate 15 ml 11/07/22 09:10 11/07/22 10:41 Chlorhexidine Gluconate 0.12% 15 Ml Udc MUCOUS MEM 11/07/23 09:09 15 ml BID SHANE Administration Docusate Sodium 100 mg 11/07/22 09:00 11/07/22 09:37 Docusate Liquid 100 Mg/10 Ml Udc OG-TUBE 11/07/23 08:59 Not Given BID [facility] Enoxaparin Sodium 40 mg 11/06/22 10:00 11/07/22 10:37 Enoxaparin 40 Mg/0.4 Ml Syringe SUBCUT 11/06/23 09:59 40 mg DAILY@1000 SHANE Administration Fluoxetine HCl 40 mg 11/07/22 22:00 Fluoxetine Soln 20 Mg/5 Ml PO 11/07/23 21:59 HS [facility] Fluoxetine HCl 20 mg 11/08/22 06:00 Fluoxetine Soln 20 Mg/5 Ml PO 11/08/23 05:59 DAILY@0600 [facility] Guaifenesin 1,200 mg 11/06/22 12:55 11/06/22 20:51 Guaifenesin 600 Mg Tab.Er.12h PO 11/06/23 12:54 1,200 mg BID SHANE Administration Levofloxacin 750 mg in 150 mls @ 100 mls/hr 11/05/22 21:00 11/06/22 21:00 Levaquin IV 100 mls/hr Q24H SHANE Administration Clindamycin Phosphate 600 mg in 50 mls @ 100 mls/hr 11/05/22 18:00 11/07/22 10:40 Cleocin IV 100 mls/hr Q8H SHANE Administration Fentanyl 1,000 mcg in 100 mls @ 2.5 mls/hr 11/07/22 07:45 11/07/22 13:46 Fentanyl 1,000 Mcg/100 Ml D5w IV 100 mcg/hr .Q24H SHANE 10 mls/hr Administration Protocol 25 MCG/HR Propofol 1,000 mg in 100 mls @ 12.6 mls/hr 11/07/22 08:00 11/07/22 13:47 Diprivan IV 11/07/23 07:59 40 mcg/kg/min .Q7H57M SHANE 25.2 mls/hr Administration Protocol 20 MCG/KG/MIN Sodium Chloride 1,000 mls @ 75 mls/hr 11/07/22 10:00 11/07/22 10:37 0.9% Sodium Chloride 1,000 Ml IV 11/07/23 09:59 75 mls/hr .[id number] SHANE Administration Cisatracurium Besylate 200 mg/ 200 mls @ 12.6 mls/hr 11/07/22 10:30 11/07/22 10:57 Dextrose IV 11/07/23 10:29 1.5 mcg/kg/min .[id number] SHANE 9.45 mls/hr Administration Protocol 2 MCG/KG/MIN Ketorolac Tromethamine 30 mg 11/06/22 12:52 11/07/22 04:21 Ketorolac Tromethamine 30 Mg/Ml Vial IV-PUSH 11/11/22 12:51 30 mg Q6H PRN Administration Pain Scale 7 - 10 Lisinopril 20 mg 11/07/22 06:00 11/07/22 06:37 Lisinopril 20 Mg Tablet PO 11/06/23 08:59 20 mg DAILY@0600 SHANE Administration Magnesium Hydroxide 30 ml 11/07/22 07:45 Magnesium Hydroxide Susp 30 Ml Udc PO 11/07/23 07:44 DAILY PRN Constipation Methylprednisolone Sodium Succinate 40 mg 11/05/22 14:00 11/07/22 15:53 Methylprednisolone Sod Succ/Pf 40 Mg/Ml (1ml) Vial IV-PUSH 11/05/23 13:59 40 mg Q8HR SHANE Administration Metoprolol Tartrate 5 mg 11/07/22 05:11 11/07/22 05:25 Metoprolol Tartrate 5 Mg/5 Ml Vial IV-PUSH 5 mg Q5M PRN Administration Tachyarrhythmias Nicotine 1 each 11/05/22 04:33 Nicotine Patch 21 Mg/24hr 1 Each Patch.Td24 TRANSDERML 12/16/22 09:01 DAILY PRN Nicotine Cravings Pantoprazole Sodium 40 mg 11/08/22 09:00 Pantoprazole 40 Mg Vial IV-PUSH 11/08/23 08:59 DAILY SHANE Potassium Chloride 40 meq 11/05/22 06:41 11/05/22 08:43 Potassium Chloride Er 20 Meq Tab.Er.Prt PO 11/05/23 06:40 40 meq DAILY PRN Administration Hypokalemia Sennosides 8.8 mg 11/07/22 09:00 11/07/22 09:37 Sennosides Syrup 8.8 Mg/5 Ml Udc PO 11/07/23 08:59 Not Given BID SHANE Sodium Chloride 0 ml 11/05/22 06:00 11/07/22 15:49 Sodium Chloride 0.9 % 10 Ml Syringe IV-PUSH 11/05/23 05:59 10 ml QSHIFT SHANE Administration Sodium Chloride 10 ml 11/07/22 08:38 Sodium Chloride 0.9 % 10 Ml Syringe IV-PUSH 11/07/23 08:37 PRN PRN Flush Sodium Chloride 10 ml 11/08/22 09:00 Sodium Chloride 0.9 % 10 Ml Vial.Pf INJECTION 11/08/23 08:59 DAILY SHANE Tizanidine HCl 4 mg 11/05/22 06:40 11/06/22 23:06 Tizanidine 4 Mg Tablet PO 11/05/23 06:39 4 mg BID@0900,1400 PRN Administration Muscle Spasm Tizanidine HCl 8 mg 11/05/22 07:19 11/05/22 21:39 Tizanidine 4 Mg Tablet PO 11/05/23 07:18 8 mg HS PRN Administration Muscle Spasm A&P - Hospitalist Assessment/Plan (1) Community acquired pneumonia: (2) HTN (hypertension): (3) Acute hypoxemic respiratory failure: (4) Parainfluenza: Plan . Documented By: Rubi Ramos MD 11/07/22 1616 Signed By: <Electronically signed by Rubi Ramos MD> 11/08/22 0126 [facility] Work Phone: [phone]) 993-133405-01-2023 Progress note Author Ismael Huitron [facility] November 07, 2022 2:05pm Note Date/Time November 07, 2022 1:56pm [facility] [address] [place] [address] Pulmonology Progress Note Signed Patient: Lori Anton MR#: [id number] : 1965 Acct:[id number] Age/Sex: 57 / M Adm Date: 3 Loc: Room: [address] [place] [address] Type: ADM IN Attending Dr: Rubi Ramos MD Copies to: ~ Date of Service: 11/07/2022 Subjective Subjective Narrative: Patient developed progressive respiratory distress overnight associated with right-sided pleuritic pain, due to severe hypoxia and work of breathing, patientwas intubated by nurse supervisor in circuit testing this morning, immediately following that and with high vent settings including PEEP of 12 he was desaturating into the 60s, Iwas in the unit at that point and was informed of his deterioration after extubation, urgently evaluated him and noticed diminished breath sounds on the right side to auscultation with an equal hemothoraces with expanded right hemithorax suggestive of pneumothorax. Stat chest x-ray was done while I was atthe bedside which confirmed large right pneumothorax with complete atelectasis of densely consolidated right lung and shift contralaterally consistent with tension pneumo. Pneumothorax catheter was placed emergently and was placed anteriorly in the second intercostal space. Patient's oxygenation improved gradually after that, and chest x-ray showed complete reexpansion of the right lung. Patient had persistent air leak afterwards. I did adjust his vent settings gradually after that to maintain adequate oxygenation, ventilation, synchronize with patient's effort, but he continued to have episodes of desaturations with agitation despite heavy sedation, hence I placed him on Nimbex drip in addition to aggressive sedation. He has had marginal hemodynamicstatus this morning as well. Severe leukocytosis continued his white count is up 32.6K today. ABGs after intubation showed a pH 7.3 PCO2 of 60 and PO2 115, this was done after placement of chest tube. Kidney functions and electrolytes remain unremarkable. Legionella studies were added by infectious disease, fullyagree with that Exam Physical Exam Vital Signs: Temp Pulse Resp BP Pulse Ox O2 Del Method O2 Flow Rate 98.7 F 104 H 20 88/62 L 96 Mechanical Ventilation 65 11/07/22 00:00 11/07/22 13:47 11/07/22 12:06 11/07/22 13:47 11/07/22 12:00 11/07/22 12:00 11/07/22 00:00 FiO2 100 11/07/22 12:06 Narrative: General: Patient has been sedated, intubated orally, on the vent since I arrivedthis morning, with increased work of breathing, periodic agitation, is reported to Eyes: Pupils equal round reactive to light HEENT: Normocephalic, atraumatic, oral mucosa moist Neck: Supple no lymphadenopathy or thyromegaly Cardiovascular: S1, S2, normal sounds, no murmurs or gallops noted, regular rhythm Lungs: Initially patient had nearly absent breath sounds on the right with coarse rhonchi and crackles on the left to auscultation, he had equal breath sounds after placement of chest tube but with coarse rhonchi and crackles Extremities: No significant peripheral edema, peripheral pulses adequate Neurologic: Sedated, on the vent Objective Intake and Output I&O - Last 24 Hours: Intake & Output 11/06/22 11/07/22 11/07/22 23:59 07:59 15:59 Intake Total 730 / 1630 550 / 850 300 / 850 Output Total 300 / 1150 450 / 510 60 / 510 Balance 430 / 480 100 / 340 240 / 340 Weight 105 kg Labs 11/07/22 05:11 11/07/22 05:11 Microbiology Micro: Microbiology 11/05/22 10:30 Aerobic Culture - Final Sputum - Expectorated Lyndsay albicans Gram Stain - Final 11/05/22 05:52 Blood Culture - Preliminary Blood - Right Hand No Growth 2 Days 11/05/22 05:52 Blood Culture - Preliminary Blood - Left Antecubital No Growth 2 Days Assessment/Plan Assessment/Plan (1) Acute hypoxemic respiratory failure: Plan: Patient presented with severe community-acquired pneumonia associated with bilateral infiltrates suggestive of severe acute lung injury, has had progressive pleuritic pain on the right suggesting necrotizing component that possibly led to tension pneumothorax once intubated and placed on positive ventilation. (2) Hilar lymphadenopathy: Plan: This could be reactive, there [facility] of [facility] patient expanded well once intubated, will continue to monitor for now (3) Atelectasis: Plan: Improved with positive pressure ventilation (4) Community acquired pneumonia: Plan: Given the severity of this presentation consideration of Legionella as well as strep pneumoniae is reasonable, work-up ordered per infectious disease (5) Nicotine dependence: Plan: This is potentially leading to underlying undiagnosed COPD Plan * Intubation and invasive ventilatory support as mentioned above * Emergent right chest tube placement for tension pneumothorax * Multiple adjustments on the vent settings to risk of barotrauma, maintain adequate oxygenation and ventilation all done at the bedside * Initiate fluid resuscitation with saline at 75 cc an hour, if tolerated we can start enteral feeding tomorrow * Antibiotic management per infectious disease recommendations * Continue with chest tube to negative pressure suction at -20 cm of water and monitor chest x-rays daily and as needed * Aggressive sedation with propofol, fentanyl, and start Nimbex for facilitating ventilation, reducing risk of barotrauma, until patient's blood gas status improved enough * CC time 50-minute Documented By: Ismael Huitron MD 11/07/22 1348 Signed By: <Electronically signed by Ismael Huitron MD> 11/07/22 1405 [facility] Work Phone: [phone] 454-219505-01-2023 [facility] History general Narrative - Reported* Type Description Date Medical History htn Medical History arthritis Medical History anxiety Hospitalization History [facility] [place] 11/2022 [employer] Other 05-01-2023 Consult note Author Sanjay Holt [facility] November 07, 2022 9:23am Note Date/Time November 07, 2022 9:11am [facility] [address] [place] [address] Infect. Disease Consult Note Signed Patient: Lori Anton MR#: [id number] : 1965 Acct:[id number] Age/Sex: 57 / M Adm Date: 3 Loc: Room: [address] [place] [address] Type: ADM IN Attending Dr: Netta Wiseman MD Copies to: Shaista Corona, NANOTECHNOLOGY ENGINEERING TECHNICIAN-C MD Netta Montez MD~ HPI Data of Consult Consult date: 11/07/22 Requesting Physician: Netta Wiseman MD Primary Care Provider: Shaista Corona Consult Narrative History of present illness: Mr. Anton is a 57 year old male who is currently intubated and sedated on the ventilator. He had been at [place] prior to coming to [facility] and was centerspecifically to have a bronchoscopy performed. He has pneumonia that PCR panel from [place] did not yield any targets but respiratory PCR panel done here yielded parainfluenza 3. Per the chart he has a history of arthritis. CTA at the other hospital showed right hilar lymph node with lobar atelectasis and groundglass opacities. He has a chest tube on the right side. He is currently on Levaquin and clindamycin. He did receive ceftriaxone on day 1 after arrival here. I was consulted for antibiotic management. Pulmonary is currently following him and felt patient was too sick/hypoxemic for bronchoscopy. He doeshave a history that is documented in the chart is drug abuse and has been on Suboxone. In addition to antibiotics he had been started on IV methylprednisolone. CC: Netta Wiseman MD Review of Systems Review of Systems Unobtainable due to endotracheal tube PMFSH Source: Unable to Obtain Vaccinated for COVID-19?: No Medical History (Updated 11/06/22 @ 08:47 by Netta Wiseman MD) Benign brain tumor Hypertension Substance abuse Family History (Updated 11/05/22 @ 04:40 by Erin Gan RN) Mother CAD (coronary artery disease) Social History Smoking Status: Current every day smoker Tobacco Type: cigarettes Substance Use Type: Former User and Opiates Substance Abuse Comment: Currently in suboxone program Allergies and Medications Allergies and Active Meds Allergies erythromycin base Allergy (Verified 11/05/22 04:16) Rash Penicillins Allergy (Verified 11/05/22 04:16) Anaphylaxis Active Medications Acetaminophen (Acetaminophen 500 Mg Tablet) 1,000 mg PO Q6HR PRN PRN Reason: Pain Scale 1 - 3 or fever Stop: 11/05/23 03:35 Last Admin: 11/05/22 21:39 Dose: 1,000 mg Albuterol (Albuterol Neb 2.5 Mg/3 Ml Vial.Neb) 2.5 mg INHALATION Q3H PRN PRN Reason: Cough/Wheeze Stop: 11/05/23 03:35 Albuterol (Albuterol Hfa 200 Puff/18 Gm Inhaler) 6 puff VENT Q6HR SHANE Stop: 11/07/23 11:59 Albuterol/Ipratropium (Ipratropium/Albuterol 0.5-3 Mg 3 Ml Ampul.Neb) 3 ml INHALATION QID.RESP [facility] Stop: 11/05/23 07:59 Last Admin: 11/06/22 20:43 Dose: 3 ml Amlodipine Besylate (Amlodipine 10 Mg Tablet) 10 mg PO DAILY@0600 [facility] Stop: 11/05/23 08:59 Last Admin: 11/07/22 06:36 Dose: 10 mg Budesonide (Budesonide 0.5 Mg/2 Ml Ampul.Neb) 0.5 mg INHALATION BID [facility] Stop: 11/05/23 11:39 Last Admin: 11/06/22 20:43 Dose: 0.5 mg Buprenorphine HCl (Buprenorphine Hcl 2 Mg Tab.Subl) 2 mg SUBLINGUAL BID@0600,1800 [facility] Stop: 05/06/23 05:59 Last Admin: 11/07/22 06:38 Dose: 2 mg Carvedilol (Carvedilol 12.5 Mg Tablet) 12.5 mg PO BID@0600,1800 [facility] Stop: 11/06/23 20:59 Last Admin: 11/07/22 06:37 Dose: 12.5 mg Docusate Sodium (Docusate Liquid 100 Mg/10 Ml Udc) 100 mg OG-TUBE BID [facility] Stop: 11/07/23 08:59 Enoxaparin Sodium (Enoxaparin 40 Mg/0.4 Ml Syringe) 40 mg SUBCUT DAILY@1000 [facility] Stop: 11/06/23 09:59 Last Admin: 11/06/22 09:09 Dose: 40 mg Fluoxetine HCl (Fluoxetine Soln 20 Mg/5 Ml) 40 mg PO HS [facility] Stop: 11/07/23 21:59 Fluoxetine HCl (Fluoxetine Soln 20 Mg/5 Ml) 20 mg PO DAILY@0600 [facility] Stop: 11/08/23 05:59 Guaifenesin (Guaifenesin 600 Mg Tab.Er.12h) 1,200 mg PO BID [facility] Stop: 11/06/23 12:54 Last Admin: 11/06/22 20:51 Dose: 1,200 mg Levofloxacin (Levaquin) 750 mg in 150 mls @ 100 mls/hr IV Q24H [facility] Last Admin: 11/06/22 21:00 Dose: 100 mls/hr Clindamycin Phosphate (Cleocin) 600 mg in 50 mls @ 100 mls/hr IV Q8H [facility] Last Admin: 11/07/22 02:14 Dose: 100 mls/hr Fentanyl (Fentanyl 1,000 Mcg/100 Ml D5w) 1,000 mcg in 100 mls @ 2.5 mls/hr IV .Q24H [facility]; Protocol Propofol (Diprivan) 1,000 mg in 100 mls @ 12.6 mls/hr IV .Q7H57M [facility]; Protocol Stop: 11/07/23 07:59 Ketorolac Tromethamine (Ketorolac Tromethamine 30 Mg/Ml Vial) 30 mg IV-PUSH Q6HPRN PRN Reason: Pain Scale 7 - 10 Stop: 11/11/22 12:51 Last Admin: 11/07/22 04:21 Dose: 30 mg Lisinopril (Lisinopril 20 Mg Tablet) 20 mg PO DAILY@0600 [facility] Stop: 11/06/23 08:59 Last Admin: 11/07/22 06:37 Dose: 20 mg Magnesium Hydroxide (Magnesium Hydroxide Susp 30 Ml Udc) 30 ml PO DAILY PRN PRN Reason: Constipation Stop: 11/07/23 07:44 Methylprednisolone Sodium Succinate (Methylprednisolone Sod Succ/Pf 40 Mg/Ml (1ml) Vial) 40 mg IV-PUSH Q8HR [facility] Stop: 11/05/23 13:59 Last Admin: 11/07/22 06:39 Dose: 40 mg Metoprolol Tartrate (Metoprolol Tartrate 5 Mg/5 Ml Vial) 5 mg IV-PUSH Q5M PRN PRN Reason: Tachyarrhythmias Last Admin: 11/07/22 05:25 Dose: 5 mg Nicotine (Nicotine Patch 21 Mg/24hr 1 Each Patch.Td24) 1 each TRANSDERML DAILY PRN PRN Reason: Nicotine Cravings Stop: 12/16/22 09:01 Pantoprazole Sodium (Pantoprazole 40 Mg Vial) 40 mg IV-PUSH DAILY [facility] Stop: 11/08/23 08:59 Potassium Chloride (Potassium Chloride Er 20 Meq Tab.Er.Prt) 40 meq PO DAILY PRN PRN Reason: Hypokalemia Stop: 11/05/23 06:40 Last Admin: 11/05/22 08:43 Dose: 40 meq Sennosides (Sennosides Syrup 8.8 Mg/5 Ml Udc) 8.8 mg PO BID SHANE Stop: 11/07/23 08:59 Sodium Chloride (Sodium Chloride 0.9 % 10 Ml Syringe) 0 ml IV-PUSH QSHIFT SHANE Stop: 11/05/23 05:59 Last Admin: 11/06/22 14:30 Dose: 10 ml Sodium Chloride (Sodium Chloride 0.9 % 10 Ml Syringe) 10 ml IV-PUSH PRN PRN PRN Reason: Flush Stop: 11/07/23 08:37 Sodium Chloride (Sodium Chloride 0.9 % 10 Ml Vial.Pf) 10 ml INJECTION DAILY SHANE Stop: 11/08/23 08:59 Tizanidine HCl (Tizanidine 4 Mg Tablet) 4 mg PO BID@0900,1400 PRN PRN Reason: Muscle Spasm Stop: 11/05/23 06:39 Last Admin: 11/06/22 23:06 Dose: 4 mg Tizanidine HCl (Tizanidine 4 Mg Tablet) 8 mg PO HS PRN PRN Reason: Muscle Spasm Stop: 11/05/23 07:18 Last Admin: 11/05/22 21:39 Dose: 8 mg Exam Physical Exam Vital Signs: Vital Signs Temp Pulse Resp BP Pulse Ox O2 Del Method O2 Flow Rate 11/07/22 08:30 72 20 98/60 L 94 L Mechanical Ventilation 11/07/22 08:00 108 H 24 104/53 L 75 L Bag-Valve Mask 11/07/22 07:31 88 22 125/64 88 L Mechanical Ventilation 11/07/22 07:00 100 H 35 H 157/103 H 94 L BiPAP 11/07/22 08:10 110 H 18 65 L Mechanical Ventilation 11/07/22 05:28 108 H 23 92 L 11/07/22 06:00 123 H 24 153/96 H 93 L BiPAP 11/07/22 05:00 115 H 22 162/102 H 94 L BiPAP 11/07/22 04:00 BiPAP 11/07/22 04:00 75 22 133/89 97 BiPAP 11/07/22 03:00 90 18 120/68 96 BiPAP 11/07/22 02:00 94 H 18 120/77 94 L BiPAP 11/07/22 02:09 92 H 28 H 96 11/06/22 20:00 High Flow 65 11/07/22 01:00 84 24 102/61 95 BiPAP 11/07/22 00:00 98.7 F 82 24 125/71 88 L BiPAP 11/06/22 23:00 80 24 120/69 91 L BiPAP 11/06/22 22:00 104 H 24 138/81 89 L High Flow 65 11/06/22 21:00 104 H 24 125/74 89 L High Flow 65 11/06/22 20:00 98 H 24 160/87 H 92 L High Flow 65 11/07/22 00:00 BiPAP 11/06/22 23:14 73 30 H 92 L 11/06/22 20:38 91 H 26 H 11/06/22 20:00 119 H 26 H 91 L 65 11/06/22 20:25 106 H 26 H 11/06/22 18:55 93 H 24 150/73 H 93 L High Flow 65 11/06/22 16:00 98.6 F 82 20 153/85 H 92 L High Flow 65 11/06/22 16:00 High Flow 11/06/22 16:00 89 22 93 L 65 11/06/22 16:01 92 H 20 11/06/22 15:50 87 20 11/06/22 12:59 65 11/06/22 12:00 High Flow 65 11/06/22 12:57 98 H 20 93 L 65 11/06/22 12:00 98.6 F 98 H 20 146/77 H 91 L High Flow 65 11/06/22 12:19 88 24 11/06/22 11:00 90 24 92 L 50 11/06/22 12:00 90 24 FiO2 11/07/22 08:30 100 11/07/22 08:00 11/07/22 07:31 100 11/07/22 07:00 100 11/07/22 08:10 11/07/22 05:28 100 11/07/22 06:00 100 11/07/22 05:00 100 11/07/22 04:00 100 11/07/22 04:00 100 11/07/22 03:00 100 11/07/22 02:00 100 11/07/22 02:09 100 11/06/22 20:00 100 11/07/22 01:00 100 11/07/22 00:00 100 11/06/22 23:00 100 11/06/22 22:00 100 11/06/22 21:00 100 11/06/22 20:00 11/07/22 00:00 11/06/22 23:14 100 11/06/22 20:38 11/06/22 20:00 100 11/06/22 20:25 11/06/22 18:55 100 11/06/22 16:00 11/06/22 16:00 11/06/22 16:00 11/06/22 16:01 11/06/22 15:50 11/06/22 12:59 11/06/22 12:00 11/06/22 12:57 100 11/06/22 12:00 11/06/22 12:19 11/06/22 11:00 11/06/22 12:00 Intake and Output 11/06/22 11/07/22 11/07/22 23:59 07:59 15:59 Intake Total 730 / 1630 500 / 500 Output Total 300 / 1150 450 / 450 Balance 430 / 480 50 / 50 Intake: IV 50 / 150 Clindamycin 600 mg/50 ml-*D5w* 50 / 150 600 mg In 50 ml @ 100 mls/hr IV Q8H [facility] Rx#:[id number] Oral 680 / 1480 500 / 500 Output: Urine 300 / 1150 450 / 450 Other: # Unmeasured Voids 1 # Bowel Movements 1 Weight 105 kg Patient Weight 11/07/22 23:59 Weight 105 kg Const General: ill appearing Orientation: other (sedated) HEENT Head: normal to inspection Mouth: other (ETT) Eyes General: appearance normal, both eyes and all related structures Neck Neck: normal visual inspection Chest Chest palpation & inspection: abnormal inspection of the chest (chest tube on right) Resp Effort & Inspection: other (on vent) Cardio Rate: tachycardic GI Palpation: soft and nontender Auscultation: normal bowel sounds Skin General: no rashes or lesions noted Neuro General: other (sedated) Extrem General: normal to inspection Results Labs 11/07/22 05:11 11/07/22 05:11 Labs: 11/07/22 05:11: Corrected WBC 32.6 H, Uncorrected WBC Count 32.6 H 11/07/22 05:11: BUN 20, Creatinine 0.55 L Microbiology Results Microbiology Narrative: 11/05/22 05:52 Blood Culture - Preliminary Blood - Right Hand No Growth 2 Days 11/05/22 05:52 Blood Culture - Preliminary Blood - Left Antecubital No Growth 2 Days 11/05/22 10:30 Aerobic Culture - Preliminary Sputum - Expectorated Light Normal Respiratory Ijeoma 1 Day Gram Stain - Final 11/05/22 09:40 Respiratory Panel (PCR) - Respiratory (Upper) Panel, PCR Final 11/05/22-1046 Adenovirus Not Detected Coronavirus 229E Not Detected Coronavirus HKU1 Not Detected Coronavirus NL63 Not Detected Coronavirus OC43 Not Detected Coronavirus SARS-CoV-2 Not Detected Human Metapneumovirus Not Detected Human Rhino/Enterovirus Not Detected Influenza A Not Detected Influenza A tests for the following clinically significant subtypes: - Influenza A - Influenza A H1 - Influenza A H1 2009 - Influenza A H3 Influenza B Not Detected Parainfluenza Virus 1 Not Detected Parainfluenza Virus 2 Not Detected Parainfluenza Virus 3 Detected Parainfluenza Virus 4 Not Detected Resp. Syncytial Virus Not Detected Bordetella parapertussis Not Detected Bordetella pertussis-ptxP Not Detected Chlamydia pneumoniae Not Detected Mycoplasma pneumoniae Not Detected Final Nasopharyngeal Imaging and Cardiology Status: image reviewed by me and report viewed by me A&P - Infectious Disease (1) Acute hypoxemic respiratory failure: Status: Acute (2) Parainfluenza: Status: Acute (3) Community acquired pneumonia: Status: Acute Plan Patient is on Levaquin and clindamycin. Based on information to date feel this is appropriate coverage. Patient would be considered community-acquired pneumonia. Sputum culture without specific pathogen identified as of yet. Blood cultures remain negative. Respiratory PCR panel at [place] without targeted pathogen but parainfluenza 3 virus targeted here. Will check antibodies to Legionella and urine antigen for Legionella and Streptococcus. Documented By: Sanjay Holt MD 11/07/22902 Signed By: <Electronically signed by MD Sanjay Holt> 11/07/22922 [facility] Work Phone: 1(994) 747-819105-01-2023 [facility] Progress note Author Kaylee Mclaughlin [facility] November 06, 2022 4:09pm Note Date/Time November 06, 2022 4:1 0pm [facility] [address] [place] [address] Pulmonology Progress Note Signed Patient: Lori Anton MR#: [id number] : 1965 Acct:[id number] Age/Sex: 57 / M Adm Date: 3 Loc: Room: [address] [place] [address] Type: ADM IN Attending Dr: Netta Wiseman MD Copies to: ~ Date of Service: 11/06/2022 Subjective Subjective Narrative: Remains on stepdown unit. appears uncomfortable, maxed out on FiO2 high flow nasal cannula 100%, flow rate at 50 L/min. Also using 100% nonrebreather on top. States he feels about the same as yesterday, still complaining of significant right-sided pleurisy. He is coughing up thick green phlegm. Complains of increased chest pain with coughing and deep inspiration. No nausea or vomiting. He is short of breath at rest. No chills. Review of systems otherwise negative. Exam Physical Exam Vital Signs: Temp Pulse Resp BP Pulse Ox O2 Del Method O2 Flow Rate 98.6 F 87 20 146/77 H 93 L High Flow 65 11/06/22 12:00 11/06/22 15:50 11/06/22 15:50 11/06/22 12:00 11/06/22 12:57 11/06/22 12:00 11/06/22 12:59 FiO2 100 11/06/22 12:57 Narrative: -General: Alert, appears uncomfortable in moderate distress -Eyes: Pupils equal and reactive. -HEENT: Head atraumatic. Mucous membranes moist. -Neck: No JVD, thyromegaly, or carotid bruit. -Respiratory: Increased work of breathing with noticeable respiratory distress/dyspnea. On high flow plus nonrebreather. Breath sounds severely diminished specially in the right mid and lower zones. End expiratory phase wheezes present mostly on the left side. -Cardiovascular: Regular rate and rhythm, S1/2 normal. No gallop. No murmur. -GI: Abdomen soft, nontender nondistended, bowel sounds present. -: Exam deferred. -Musculoskeletal: No peripheral edema. No clubbing. No deformity. -Skin: No rash. Slightly diaphoretic. -CIGARETTE TESTER: Alert and oriented x3, no focal deficits. Objective Intake and Output I&O - Last 24 Hours: Intake & Output 11/06/22 11/06/22 11/06/22 07:59 15:59 23:59 Intake Total 200 / 900 700 / 900 Output Total 450 / 850 400 / 850 Balance -250 / 50 300 / 50 Weight 103.6 kg Labs 11/06/22 05:06 11/06/22 05:06 Microbiology Micro: Microbiology 11/05/22 10:30 Aerobic Culture - Preliminary Sputum - Expectorated Light Normal Respiratory Ijeoma 1 Day Gram Stain - Final 11/05/22 05:52 Blood Culture - Preliminary Blood - Left Antecubital No Growth 1 Day 11/05/22 05:52 Blood Culture - Preliminary Blood - Right Hand No Growth 1 Day Assessment/Plan Assessment/Plan (1) Acute hypoxemic respiratory failure: Plan: - Likely due to right lower lobe atelectasis secondary to obstructive lesion/large right hilar lymphadenopathy. -No imaging studies available at time of my entry today for my review as the CT angiogram was done at [facility] and no disc was sent with records. We did call [facility] and requested chest CTA imaging. -Chest CT was ordered here, per report, no mediastinal adenopathy and no discrete masses(as per radiology report) -Start high flow nasal cannula with flow rate 40 L/min and FiO2 60% -Titrate FiO2 as needed for target SPO2> 90% -Potential underlying chronic obstructive of pulmonary disease, treat with nebulized short acting bronchodilators, budesonide, and systemic corticosteroids (2) Hilar lymphadenopathy: Plan: -Per chest CTA report done at [facility], there is evidence of 2.6 cm right hilar lymph node compressing the right lower lobe bronchus leading to right lower lobe atelectasis . - Again, the CTA film is not available for my review at this time, this was requested from [facility]. However this is concerning for primary lung CA given the nicotine dependence history. -Patient will need diagnostic bronchoscopy however this cannot be done at this point due to acute illness and acute hypoxic respiratory failure. -Diagnostic flexible bronchoscopy can be done once patient's oxygenation has improved. (3) Atelectasis: Plan: - Chest physiotherapy -Incentive spirometry (4) Community acquired pneumonia: Plan: -Possible postobstructive pneumonitis - Started on levofloxacin and clindamycin by hospitalist service (5) Nicotine dependence: Plan: This is potentially leading to underlying undiagnosed COPD Plan -[facility] after hewas told he needed bronchoscopy. -Repeat chest CT in our facility now reports no evidence of discrete masses or lymphadenopathy. There is evidence of extensive consolidation with air bronchograms and groundglass opacifications, representing multilobar pneumonia along with right middle lobe and left upper lobe atelectasis, likely due to mucous plugging. -CT findings can only be confirmed with diagnostic flexible bronchoscopy which is obviously not possible at this time due to significant hypoxemia(patient willneed to be intubated for bronchoscopy). -Increased flow rate to 65 L/min, FiO2 100%. Add 100% nonrebreather if needed. Current SPO2 94 to 95% -Broad-spectrum antibiotics -Add Mucomyst -Nebulized short acting bronchodilators, budesonide -Mucolytic therapy, chest physiotherapy -Transfer to ICU -Toradol as needed for severe chest pain/pleurisy -Lovenox for DVT prophylaxis Discussed with nursing staff Critical care time 37 minutes Documented By: Kaylee Mclaughlin MD 11/06/22 160 1 Signed By: <Electronically signed by Kaylee Mclaughlin MD> 11/06/22 1609 [facility] Work Phone: [phone]) 823-420704-30-2023 Progress note Author Netta Wismean [facility] November 06, 2022 8:49am Note Date/Time November 06, 2022 8:4 9am [facility] [address] [place] [address] Hospitalist Progress Note Signed Patient: Lori Anton MR#: [id number] : 1965 Acct:[id number] Age/Sex: 57 / M Adm Date: 3 Loc: 4P Room: [address] [place] [address] Type: ADM IN Attending Dr: Netta Wiseman MD Copies to: ~ Date of Service: 11/06/2022 Subjective Subjective Narrative: Patient continues to be short of breath. He is on high flow oxygen 100%, 50 L. Patient feels better compared to yesterday. He continues to report having rightmid and lower lung pleuritic chest discomfort. No abdominal pain. Nausea but no vomiting. No headaches, loss of conscious or seizure Exam Physical Exam Vital Signs: Temp Pulse Resp BP Pulse Ox O2 Del Method O2 Flow Rate 97.5 F L 50 L 28 H 128/80 90 L Nonrebreather 15 11/05/22 23:22 11/06/22 08:44 11/06/22 08:44 11/06/22 04:00 11/06/22 08:00 11/06/22 08:00 11/06/22 08:00 FiO2 100 11/06/22 04:00 Narrative: Patient is in mild to moderate respiratory distress. Respiratory is about 24. He was sleeping when I got into the room. I woke him up. He is on high flow oxygen. Saturation 90%. Slightly diaphoretic. Neck is supple. Chest exam revealed diminished breath sound on the right side. Heart is regular. Abdomen is soft lower extremities no edema Objective Lab Results 11/06/22 05:06 11/06/22 05:06 Microbiology Results Microbiology 11/05/22 05:52 Blood - Left Antecubital Blood Culture - Preliminary No Growth 1 Day 11/05/22 05:52 Blood - Right Hand Blood Culture - Preliminary No Growth 1 Day 11/05/22 10:30 Sputum - Expectorated Gram Stain - Final 11/05/22 09:40 Nasopharyngeal Respiratory Panel (PCR) - Final Meds Allergies and Active Meds Allergies erythromycin base Allergy (Verified 11/05/22 04:16) Rash Penicillins Allergy (Verified 11/05/22 04:16) Anaphylaxis Active Meds: Active Medications Generic Name Dose Route Start Last Admin Trade Name Freq PRN Reason Stop Dose Admin Acetaminophen 1,000 mg 11/05/22 03:36 11/05/22 21:39 Acetaminophen 500 Mg Tablet PO 11/05/23 03:35 1,000 mg Q6HR PRN Administration Pain Scale 1 - 3 or fever Albuterol 2.5 mg 11/05/22 03:36 Albuterol Neb 2.5 Mg/3 Ml Vial.Neb INHALATION 11/05/23 03:35 Q3H PRN Cough/Wheeze Albuterol/Ipratropium 3 ml 11/05/22 08:00 11/06/22 08:28 Ipratropium/Albuterol 0.5-3 Mg 3 Ml Ampul.Neb INHALATION 11/05/23 07:59 3 ml QID.RESP SHANE Administration Amlodipine Besylate 10 mg 11/05/22 09:00 11/05/22 08:44 Amlodipine 10 Mg Tablet PO 11/05/23 08:59 10 mg DAILY SHANE Administration Budesonide 0.5 mg 11/05/22 11:40 11/06/22 08:28 Budesonide 0.5 Mg/2 Ml Ampul.Neb INHALATION 11/05/23 11:39 0.5 mg BID SHANE Administration Buprenorphine HCl 4 mg 11/05/22 09:00 11/05/22 21:28 Buprenorphine Hcl 2 Mg Tab.Subl SUBLINGUAL 05/04/23 08:59 4 mg BID SHANE Administration Carvedilol 12.5 mg 11/06/22 09:00 Carvedilol 12.5 Mg Tablet PO 11/06/23 08:59 BID SHANE Fluoxetine HCl 60 mg 11/05/22 09:00 11/05/22 08:43 Fluoxetine 20 Mg Capsule PO 11/05/23 08:59 60 mg DAILY SHANE Administration Fluoxetine HCl 40 mg 11/05/22 22:00 11/05/22 21:27 Fluoxetine 20 Mg Capsule PO 11/05/23 21:59 40 mg HS SHANE Administration Guaifenesin 1,200 mg 11/05/22 09:00 11/05/22 21:27 Guaifenesin 600 Mg Tab.Er.12h PO 11/05/23 08:59 1,200 mg BID SHANE Administration Levofloxacin 750 mg in 150 mls @ 100 mls/hr 11/05/22 21:00 11/05/22 21:28 Levaquin IV 100 mls/hr Q24H SHANE Administration Clindamycin Phosphate 600 mg in 50 mls @ 100 mls/hr 11/05/22 18:00 11/06/22 03:33 Cleocin IV 100 mls/hr Q8H SHANE Administration Sodium Chloride 500 mls @ 250 mls/hr 11/06/22 08:41 0.9% Sodium Chloride 500 Ml IV 11/06/22 10:40 .Q2H ONE Lisinopril 20 mg 11/06/22 09:00 Lisinopril 20 Mg Tablet PO 11/06/23 08:59 DAILY SHANE Methylprednisolone Sodium Succinate 40 mg 11/05/22 14:00 11/06/22 05:15 Methylprednisolone Sod Succ/Pf 40 Mg/Ml (1ml) Vial IV-PUSH 11/05/23 13:59 40 mg Q8HR SHANE Administration Nicotine 1 each 11/05/22 04:33 Nicotine Patch 21 Mg/24hr 1 Each Patch.Td24 TRANSDERML 12/16/22 09:01 DAILY PRN Nicotine Cravings Potassium Chloride 40 meq 11/05/22 06:41 11/05/22 08:43 Potassium Chloride Er 20 Meq Tab.Er.Prt PO 11/05/23 06:40 40 meq DAILY PRN Administration Hypokalemia Sodium Chloride 0 ml 11/05/22 06:00 11/06/22 02:09 Sodium Chloride 0.9 % 10 Ml Syringe IV-PUSH 11/05/23 05:59 10 ml QSHIFT SHANE Administration Tizanidine HCl 4 mg 11/05/22 06:40 Tizanidine 4 Mg Tablet PO 11/05/23 06:39 BID@0900,1400 PRN Muscle Spasm Tizanidine HCl 8 mg 11/05/22 07:19 11/05/22 21:39 Tizanidine 4 Mg Tablet PO 11/05/23 07:18 8 mg HS PRN Administration Muscle Spasm A&P - Hospitalist Assessment/Plan (1) Community acquired pneumonia: (2) HTN (hypertension): (3) Nicotine dependence: (4) Hilar lymphadenopathy: (5) Acute hypoxemic respiratory failure: (6) Parainfluenza: Plan Acute hypoxic respiratory failure requiring the use of high flow oxygen 100%, 50L Community-acquired pneumonia Possible postobstructive pneumonia with 2.6 cm right hilar lymph node resulting in complete lobar atelectasis Pleuritic chest pain Patient is on Levaquin and clindamycin. Requested a repeat CT chest.. IV fluid infusion 500 mL before and after CT to reduce his risk having contrast nephropathy Patient has been started on Solu-Medrol by pulmonary team. Continue aerosol treatment. Defer further needed diagnostic and therapeutic intervention related to his pulmonary status to pulmonary team Chronic conditions HTN?monitor, resume home meds once confirmed, blood pressure is dropping since yesterday. Reduced her Coreg down to 12.5 twice daily specifically given his bradycardia. Reduced lisinopril to 20 mg daily Nicotine dependence?encourage abstinence, nicotine patch as needed DVT PPx?compression socks, heparin CODE STATUS?full code as discussed with patient and Diet order?regular diet Documented By: Netta Wiseman MD 11/06/22 0846 Signed By: <Electronically signed by Netta Wiseman MD> 11/06/22 0849 [facility] Work Phone: [phone]) [phone] Consult note Author Kaylee Mclaughlin [facility] November 05, 2022 12:45pm Note Date/Time November 05, 2022 12: 05pm [facility] [address] [place] [address] Pulmonology Consult Note Signed Patient: Lori Anton MR#: [id number] : 1965 Acct:[id number] Age/Sex: 57 / M Adm Date: 3 Loc: Room: [address] [place] [address] Type: ADM IN Attending Dr: Netta Wiseman MD Copies to: Shaista Corona, NANOTECHNOLOGY ENGINEERING TECHNICIAN-C MD Netta Pillai MD~ HPI Date/Time of Consultation: Date of Service: 11/05/2022 Time of Service: 11:45 Consulting Provider: Kaylee Mclaughlin Requesting Provider: Netta Wiseman Reason for Consult: Acute hypoxemic respiratory failure, right lower lobe atelectasis History of Present Illness History of present illness: Mr. Anton is a 57 year old male with more than [id number] smoking history whosmokes a pack a day, history of hypertension and arthritis was transferred from [facility] last night for acute hypoxic respiratory failure and abnormal chest CT. Patient states he developed a fever, right-sided chest pain, cough and shortness of breath about a week ago. His cough is productive of yellowish phlegm. He felt he was not able to take a deep breath. 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 Patient tells me he smokes a pack a day and has been smoking a pack a day for over 35 years now. His symptoms started about a week ago, he developed fever and chills at home, he was coughing up thick yellow phlegm and was experiencing right-sided chest pain that gets worse with cough and deep inspiration. No recent travel. Chest CT angiogram at [facility] reported negative for PE, showed multifocal groundglass opacifications consistent with pneumonia and a 2.6 cm right hilar lymph adenopathy with complete lobar atelectasis. Patient tested negative for COVID- 19. Patient was initially admitted to telemetry, this morning he became more short of breath requiring high FiO2. Patient was transferred to stepdown unit. Review of Systems Review of Systems Review of systems: Review of systems positive for fever, chills, productive cough, and pleuritic chest pain. He also felt diaphoretic. No nausea or vomiting, no recent weight change. Review of systems otherwise negative. PMFSH Vaccinated for COVID-19?: No Medical History (Updated 11/05/22 @ 11:55 by Kaylee Mclaughlin MD) Benign brain tumor Hypertension Substance abuse Family History (Updated 11/05/22 @ 04:40 by Erin Gan RN) Mother CAD (coronary artery disease) Social History Smoking Status: Current every day smoker Tobacco Type: cigarettes Substance Use Type: Former User and Opiates Substance Abuse Comment: Currently in suboxone program Meds Medications and Allergies Allergies erythromycin base Allergy (Verified 11/05/22 04:16) Rash Penicillins Allergy (Verified 11/05/22 04:16) Anaphylaxis Home Medications amlodipine 10 mg tablet 10 mg PO DAILY 11/05/22 [History Confirmed 11/05/22] buprenorphine 8 mg-naloxone 2 mg sublingual film 0.5 film sublingual BID 11/05/22 [History Confirmed 11/05/22] carvedilol 25 mg tablet 25 mg PO BID 11/05/22 [History Confirmed 11/05/22] diclofenac sodium 50 mg tablet,delayed release 50 mg PO TID PRN Pain 11/05/22 [History Confirmed 11/05/22] fluoxetine 20 mg capsule 20 mg PO DAILY 11/05/22 [History Confirmed 11/05/22] fluoxetine 20 mg capsule 40 mg PO HS 11/05/22 [History Confirmed 11/05/22] lisinopril 40 mg tablet 40 mg PO DAILY 11/05/22 [History Confirmed 11/05/22] tizanidine 4 mg tablet 4 - 8 mg PO QID PRN Muscle Spasm 11/05/22 [History Confirmed 11/05/22] Exam Physical Exam Vital Signs: Temp Pulse Resp BP Pulse Ox O2 Del Method O2 Flow Rate 99.9 F H 84 21 151/86 H 91 L Venturi Mask 40 11/05/22 09:41 11/05/22 11:31 11/05/22 11:31 11/05/22 08:47 11/05/22 10:50 11/05/22 09:41 11/05/22 10:50 FiO2 65 11/05/22 10:50 Narrative: General: Alert and oriented, appears to be in moderate distress. Eyes: Pupils equal and reactive. HEENT: Head atraumatic. Mucous membranes moist. Neck: No JVD, thyromegaly, or carotid bruit. Respiratory: Increased work of breathing with noticeable respiratory distress/dyspnea. Breath sounds severely diminished specially in the right mid and lower zones. End expiratory phase wheezes present mostly on the left side. Cardiovascular: Regular rate and rhythm, S1/2 normal. No gallop. No murmur. GI: Abdomen soft, nontender nondistended, bowel sounds present. : Exam deferred. Musculoskeletal: No peripheral edema. No clubbing. No deformity. Skin: No rash. Slightly diaphoretic. CIGARETTE TESTER: Alert and oriented x3, no focal deficits. Results Intake and Output I&O - Last 24 Hours: Intake & Output 11/04/22 11/05/22 11/05/22 23:59 07:59 15:59 Intake Total 350 / 350 Balance 350 / 350 Weight 96 kg Labs 11/05/22 05:52 11/05/22 05:52 Microbiology Micro: 11/05/22 10:30 Aerobic Culture - Pending Sputum - Expectorated Gram Stain - Pending 11/05/22 09:40 Respiratory Panel (PCR) - Final Nasopharyngeal 11/05/22 05:52 Blood Culture - Pending Blood - Right Hand 11/05/22 05:52 Blood Culture - Pending Blood - Left Antecubital Assessment/Plan (1) Acute hypoxemic respiratory failure: Plan: - Likely due to right lower lobe atelectasis secondary to obstructive lesion/large right hilar lymphadenopathy. -No imaging studies available at time of entry today for my review as the CT angiogram was done at [facility] and no disc was sent with records. We did call [facility] and requested chest CTA imaging. -Start high flow nasal cannula with flow rate 40 L/min and FiO2 60% -Titrate FiO2 as needed for target SPO2> 90% -Potential underlying chronic obstructive of pulmonary disease, treat with nebulized short acting bronchodilators, budesonide, and systemic corticosteroids (2) Hilar lymphadenopathy: Plan: -Per chest CTA report done at [facility], there is evidence of 2.6 cm right hilar lymph node compressing the right lower lobe bronchus leading to right lower lobe atelectasis . - Again, the CTA film is not available for my review at this time, this was requested from [facility]. However this is concerning for primary lung CA given the nicotine dependence history. -Patient will need diagnostic bronchoscopy however this cannot be done at this point due to acute illness and acute hypoxic respiratory failure. -Diagnostic flexible bronchoscopy can be done once patient's oxygenation has improved. (3) Atelectasis: Plan: - Flutter valve -Incentive spirometry (4) Community acquired pneumonia: Plan: -Possible postobstructive pneumonitis - Started on levofloxacin and clindamycin by hospitalist service (5) Nicotine dependence: Plan: This is potentially leading to underlying undiagnosed COPD Plan - Stepdown unit, will transfer to ICU if FiO2 requirements continue to increase. -Discontinue ketorolac -Lovenox for DVT prophylaxis Discussed with nursing staff Critical care time 31 minutes Documented By: Kaylee Mclaughlin MD 11/05/22 114 5 Signed By: <Electronically signed by Kaylee Mclaughlin MD> 11/05/22 1245 [facility] Work Phone: [phone]) [phone] Progress note Author Netta Wiseman [facility] November 05, 2022 9:09am Note Date/Time November 05, 2022 9:0 9am [facility] [address] [place] [address] Event Note Signed Patient: Lori Anton MR#: [id number] : 1965 Acct:[id number] Age/Sex: 57 / M Adm Date: 3 Loc: 3T Room: [address] [place] [address] Type: ADM IN Attending Dr: Netta Wiseman MD Copies to: Shaista Corona, NANOTECHNOLOGY ENGINEERING TECHNICIAN-C Netta Wiseman MD~ Event Date & Type DATE OF EVENT: 11/05/22 TIME OF EVENT: 09:09 CRITICAL CARE TIME: 45 EVENT TYPE: Other PROCEDURES PERFORMED DURING EVENT: None Pertinent History I responded immediately to a nursing alert. Patient was admitted yesterday withpneumonia. This morning nurse went to check up on him and found him to be in respiratory distress. Saturation dropped to the 70s. Nurse placed him on 100% oxygen mask. I went to see him immediately. I found the patient sitting in bed in moderate respiratory distress. Respiratory rate is about 25. Shallow respiration. Patient reports having right-sided pleuritic chest pain. The patient is diaphoretic. Is able to speak without full sentences. He denies any left-sidedchest pain Physical Examination Patient is sitting in bed, tachypneic and diaphoretic. Is moderate respiratory distress. Neck is supple. No JVD or carotid bruit. Heart regular and tachycardic. Chest no breath sounds on the right side suggestive of either collapse, pneumothorax or effusion MDM Acute respiratory failure Suspect obstructive pneumonia. CT scan done at [place] did not show any pulmonary embolism. Patient is already on Levaquin. I added clindamycin to cover anaerobes for obstructive pneumonia. Patient is allergic to penicillin. I requested the stat ABGs, blood gas, lactic acid, troponin and BNP. Also requested a procalcitonin level. Based on the blood gas I will decide if the patient would benefit from BiPAP andtransfer to progressive care unit for close monitoring of his respiratory status. In addition I would start patient on normal saline at 250 an hour until lactic acid is back Based on the chest x-ray the patient may need to have additional investigation and intervention. Spent about 40 minutes in the critical care evaluation, assessment and treatmentof this patient thus far Documented By: Netta Wiseman MD 11/05/22 09 Signed By: <Electronically signed by Netta Wiseman MD> 11/05/22 0909 [facility] Work Phone: 1(576) 992-510404-29-2023 History and physical note Author Derek Alex [facility] November 05, 2022 6:38am Note Date/Time November 05, 2022 4:0 0am [facility] [address] [place] [address] Hospitalist H&P Signed with Addenda Patient: Lori Anton MR#: [id number] : 1965 Acct:[id number] Age/Sex: 57 / M Adm Date: 3 Loc: Room: [address] [place] [address] Type: ADM IN Attending Dr: Derek Alex MD Copies to: MD Shaista Bustamante, NANOTECHNOLOGY ENGINEERING TECHNICIAN-C Annabel Boo, MARLO~ ADDENDUM1 I personally saw this patient on the day of the encounter, reviewed the history,performed the borrego elements of the exam and formulated the plan of care and confirmed the nurse practitioners/residents/international account representative written note. Addendum Documented By: Derek Alex MD 11/05/22 0637 Addendum Signed By: <Electronically signed by Derek Alex MD> 11/05/22 0637 HPI DATE OF EXAMINATION: 11/05/22 CHIEF COMPLAINT: fever, cough, right sided chest pain HISTORY OF PRESENT ILLNESS: Mr. Anton is a 57-year-old male with a PMH of HTN, arthritis that presented to the [facility] emergency room for fever, cough, and right- sided chest pain. Patient seen and evaluated upon transfer at bedside, at bedside. [facility] hospital work-up with a positive D-dimer 0.96, CTA was performed which showed no evidence of PE, right lower lobe bronchus attenuation secondary to a 2.6 cm right hilar lymph node with resultant complete lobar atelectasis, multifocal groundglass opacities?concerning for pneumonia. Respiratory panel isnegative. CBC with a white blood cell count of 20.6, elevated neutrophil count. Cardiac markers negative x2. EKG was sinus rhythm, no ST changes noted. BMP with a potassium of 3.3, otherwise negative, BUN 10, creatinine 0.71. Lactic acid 0.8. Patient was medicated with Toradol, Levaquin, Zofran, and 1 L bolus saline, morphine. The patient reports 1 week ago he started not feeling right, Monday and Monday he was spitting up thick yellow sputum. He reports his sinuses started yesterday. He states he has had fevers at home, he is currently chilledand shivering. He states last night he was around 2 AM he woke up with right-sided chest pain, hurts worse when he takes a deep breath he took some Tylenol and went back to sleep. Got up in the morning went to work and has felt worse during the day decided to go to the [facility] emergency room and then hewas transferred here. He reports waking up in sweat on Monday night. He denies shortness of breath, nausea. He is a pack-a-day smoker, nondrinker, history of drug abuse in the past?currently on Suboxone?he states he is almost finished with Suboxone treatment. reports patient had bronchitis in July. He does state he has been taking Tylenol as needed at home for pain and fever. Review of Systems Review of Systems Review of systems: A 10 point review of systems was obtained, negative unless noted in the HPI or below. [facility] Attestation Statement: The following information was validated with the patient. Social History Marital Status: Household Members: spouse Smoking Status: Current every day smoker Tobacco Type: cigarettes Substance Use Type: Former User and Opiates Substance Abuse Comment: Currently in suboxone program Current Occupational Status: employed Meds Medications and Allergies Allergies erythromycin base Allergy (Verified 11/05/22 04:16) Rash Penicillins Allergy (Verified 11/05/22 04:16) Anaphylaxis Home Medications amlodipine 10 mg tablet 10 mg PO DAILY 11/05/22 [History Confirmed 11/05/22] buprenorphine 8 mg-naloxone 2 mg sublingual film 0.5 film sublingual BID 11/05/22 [History Confirmed 11/05/22] carvedilol 25 mg tablet 25 mg PO BID 11/05/22 [History Confirmed 11/05/22] diclofenac sodium 50 mg tablet,delayed release 50 mg PO TID PRN Pain 11/05/22 [History Confirmed 11/05/22] fluoxetine 20 mg capsule 20 mg PO DAILY 11/05/22 [History Confirmed 11/05/22] fluoxetine 20 mg capsule 40 mg PO HS 11/05/22 [History Confirmed 11/05/22] lisinopril 40 mg tablet 40 mg PO DAILY 11/05/22 [History Confirmed 11/05/22] tizanidine 4 mg tablet 4 - 8 mg PO QID PRN Muscle Spasm 11/05/22 [History Confirmed 11/05/22] Exam Physical Exam Narrative: CONST- Appears well -developed and well nourished. HEAD - Normocephalic and atraumatic EENT-Sclera nonicteric, conjunctive are non-erythemic, moist oral mucosa, pharynx clear NECK-Supple, no cervical lymphadenopathy CARDIAC-normal rate, regular rhythm, S1 & S2. PULM-diminished to the R base posteriorly, no wheezing, no rhonchi, RA, no accessory muscle use, nonproductive cough noted, pleuritic pain with deep breathing ABD - Soft. Bowel sounds are normal. No distention. No tenderness EXTREM-no edema BLE calves, nontender SKIN- W/D good turgor MS- MAEX4 spontaneously with equal with equal strength NEURO- A&Ox3 speech clear and tongue midline, equal facial symmetry, no focal motor deficits PSYCH-Mood, affect, and behavior appropriate A&P - Hospitalist Assessment/Plan (1) Community acquired pneumonia: (2) HTN (hypertension): (3) Nicotine dependence: Plan Community-acquired pneumonia Possible postobstructive pneumonia with 2.6 cm right hilar lymph node resulting in complete lobar atelectasis Pleuritic chest pain ? Consult pulmonology ? Nebulizers, Mucinex, ceftriaxone, doxycycline ? Blood cultures, sputum culture, CBC, BMP in a.m. ? Oxygen if needed, keep SPO2 greater than 90% ? Toradol for pain, monitor renal function, patient would like to stay away fromnarcotics Chronic conditions HTN?monitor, resume home meds once confirmed Nicotine dependence?encourage abstinence, nicotine patch as needed DVT PPx?compression socks, heparin CODE STATUS?full code as discussed with patient and Diet order?regular diet Documented By: Annabel Boo APRN 11/05/22 4096 Signed By: <Electronically signed by MARLO Boo> 11/05/22 2942 <Electronically signed by Derek Alex MD> 11/05/22 0635 [facility] Work Phone: 1(798) 722-413712-29-2022 Evaluation note* Encounter Date Diagnosis Assessment Notes Treatment Notes Treatment Clinical Notes Jun, Contact with and (suspected) exposure to other viral communicable diseases (ICD-10 - Z20.828) Jun, COVID-19 (ICD-10 - U07.1) Today you tested positive for the COVID virus. This mean you need to follow all CDC quarantine guidelines found at coronavirus.[place].g ov. It is important to rest, increase fluids, and stay at home. Recommend contacting primary care provider and discussing best course of action if you have chronic health conditions. COVID POSITIVE education handout discharge instructions. given., Discharge Instructions for COVID-19 (Suspected or Confirmed ) material was printed Jun, Bronchitis (ICD-10 - J40) Take medications as directed. Rest and increase fluid intake. Take meds with food to prevent stomach upset. Use inhaler as needed for coughing spells and SOB. It is better to use inhaler a few times a day over the next 2-3 days. Follow up with primary care provider if symptoms do not improve with treatment plan, although it may take a few weeks for the cough to go away Jun, Right acute otitis media (ICD-10 - H66.91) Ear infections are often a secondary infection caused from an URI, the flu or allergies. Take medication as directed. Complete all doses, even if you feel better. Tylenol or ibuprofen can help with pain. Warm pack to area for comfort helps as well. Follow up with primary care provider if no improvement of symptoms. [facility] [facility] Other Evaluation note* Diagnosis Onset Date Resolution Status Acute hypoxemic respiratory failure acute Atelectasis acute Community acquired pneumonia acute Fever acute Hilar lymphadenopathy acute HTN (hypertension) acute Nicotine dependence acute Parainfluenza acute Tension pneumothorax acute [facility] Work Phone: Evaluation noteNo assessment information available [facility] Work Phone: History general Narrative - Reported* Type Description Date Medical History htn Medical History arthritis Medical History anxiety [employer] [facility] Other Hospital Discharge instructionsAmbulatory Orders* Initiate Home Health Time Frame: 11/21/22, Location: Determined By Patient Additional Instructions HOME HEALTH TO MANAGE: Nursing/PT/OT to eval and treat Monitor VS per protocol Monitor Respiratory assessment--Acute hypoxemic respiratory failure, Tension pneumothorax, Pneumonia Dressing chanage every 2 days to right ear stage 2 pressure injury: *Clean with NS and pat dry. Apply Polymem AG (cut to dart) and top with opsite. Dressing change every 3 days: *Mepilex border foam to Coccyx for protection. Dressing change every 3 days to right lower abdomen and right thigh blisters: Wipe clean with Theraworx protect. Pat dry and apply Mepilex border foam for added protection. Please remove right chest suture in 48 hours Assist with medication management and provide medication education Provide education on high risk fall precautions Either Home Health Nurse of your family doctor can [facility] right [facility] Hospital Discharge instructions Additional Instructions Avoid smoking Push fluids Rest Follow with your PCP Return here if any problems persist or worsen include chest pain, shortness of breath or any other concernHol[facility] Work Phone: Summary Purpose Family History No Family History Records Found Relationship Condition Age at Onset Recorded Date/T sun Not Specified Coronary artery disease Unknown Advance Directives No Advanced Directives Records Found Advance Directive Response Recorded Date/ Time Advance Directives No November 04, 2 023 11:14pm Advance Directive Response Recorded Date/ Time Advance Directives No November 04, 023 10:14pm Chief Complaint and Reason for Visit Chief Complaint Pneumonia Reason for Visit Acute hypoxemic resp iratory failure Atelectasis Community acquired pneumonia Fever Hilar lymphadenopathy HTN (hypertension) Nicotine dependence Parainfluenza Tension pneumothorax Chief Complaint Pneumonia upper rt side pain Reason for Visit Acute hypoxemic resp iratory failure Atelectasis Community acquired pneumonia Fever Hilar lymphadenopathy HTN (hypertension) Nicotine dependence Parainfluenza Tension pneumothorax Chief Complaint Pneumonia upper rt side pain Pnumonia Reason for Visit Acute hypoxemic resp iratory failure Atelectasis Community acquired pneumonia Fever Hilar lymphadenopathy HTN (hypertension) Nicotine dependence Parainfluenza Tension pneumothorax Chief Complaint body aches, fever Additional Source Comments (unrecognized sect ion and content) No Status Records FoundNo Status Records FoundNo Status Records FoundNo Status Records FoundNo Status Records Found INFORMATION SOURCE (unrecogn ized section and content) DATE CREATED AUTHOR 12/19/2018 [facility] DATE CREATED AUTHOR AUTHOR'S ORGANIZ ATION 11/11/2022 [facility] DATE CREATED AUTHOR AUTHOR'S ORGANIZ ATION 05/24/2023 [facility] DATE CREATED AUTHOR AUTHOR'S ORGANIZ ATION 09/06/2023 [facility] DATE CREATED AUTHOR AUTHOR'S ORGANIZ ATION 10/04/2023 [facility] REASON FOR VISIT (unrecogniz ed section and content) EARACHE, B/A4 wk Hosp F/U Pn eumonia Care Teams (unrecognized sec tion and content) Team Status: Active Member Role Status Dates Shaista Corona Primary Care Provider Active Team Status: Inactive Member Role Status Dates Shaista Corona Primary Care Provider Active Derek Alex MD Admit Provider Active Sanjay Holt MD Other Provider Active Reginald Arroyo MD Other Provider Active Rubi Ramos MD Attending Provider Active Team Status: Inactive Member Role Status Dates Shaista Corona Primary Care Provider Active Lisha Silva APRN Emergency Provider Active Team Status: Inactive Member Role Status Dates Shaista Corona Primary Care Provider Active Evi Gay APRN [facility]- Attending Provider Active Team Status: Inactive Member Role Status Dates Shaista Corona Primary Care Provider Active Sta rt: July 31, 2023 End: July 31, 2023 Ej Garcia PA-C Emergency Provider Active Start: July 31, 2023 End: July 31, 2023 Goals (unrecognized section and content) Goals may be documented in a n alternate section FOR RECORDS PERTAINING TO PATIENTS WHO ARE OR HAVE BEEN ENROLLED IN A CHEMICAL DEPENDENCY/SUBSTANCEABUSE PROGRAM, SOME INFORMATION MAY BE OMITTED. This clinical summary was aggregated from multiple sources. Caution should be exercised in using it in the provision of clinical care. This summary normalizes information from multiple sources, and as a consequence, information in this document may materially change the coding, format and clinical context of patient data. In addition, data may be omitted in some cases. CLINICAL DECISIONS SHOULD BE BASED ON THE PRIMARY CLINICAL RECORDS. [employer] [facility]. provides no warranty or guarantee of the accuracy or completeness of information in this document.
--- NOTE | 2023-10-29 21:43 | PC.NURSE ---
Complains of pain to left calf area. Denies injury to area. Skin pink and warm, no redness, bruising, or swelling present.
--- NOTE | 2023-10-29 21:47 | ED_ITS ---
HPI - Extremity Problem General Chief complaint: Extremity Problem, Nontraumatic Stated complaint: lower pain Time Seen by Provider: 10/29/23 21:43 Source: patient Mode of arrival: walk-in History of Present Illness HPI Narrative: presents complaining of pain of his left calf and ankle. Denies injury. Known arthritis of both knees L>R. States he was told he needs knee replacement. Denies injury. States pain of his leg started today and increased tonight. Increased pain when walking. Feels like a constant cramp type pain Related Data Home Medications ?Medication ?Instructions ?Recorded ?Confirmed amlodipine 10 mg tablet 10 mg PO DAILY 10/29/23 10/29/23 buprenorphine 8 mg-naloxone 2 mg 0.5 film sublingual DAILY 10/29/23 10/29/23 sublingual film (Suboxone) carvedilol 25 mg tablet 25 mg PO BID 10/29/23 10/29/23 diclofenac sodium 50 mg 50 mg PO Q8H PRN pain 10/29/23 10/29/23 tablet,delayed release fluoxetine 20 mg capsule 40 mg PO QPM 10/29/23 10/29/23 lisinopril 40 mg tablet 40 mg PO DAILY 10/29/23 10/29/23 tizanidine 4 mg tablet 4 mg PO TID 10/29/23 10/29/23 Allergies Allergy/AdvReac Type Severity Reaction Status Date / Time erythromycin base Allergy Severe Verified 10/29/23 21:39 Penicillins Allergy Severe Verified 10/29/23 21:39 Review of Systems ROS Status of ROS 10 or more systems reviewed and unremark able except as noted in history and below Exam Constitutional Vital Signs, click to edit/add: Last Vital Signs Temp 98.2 F 10/29/23 21:36 Pulse 69 10/29/23 21:36 Resp 22 H 10/29/23 21:36 BP 165/93 H 10/29/23 21:36 Pulse Ox 99 10/29/23 21:36 O2 Del Method Room Air 10/29/23 21:36 Common normals: no apparent distress, average body habitus, oriented x3, no limitations, healthy appearing, alert and well nourished [facility] Common normals: normocephalic and head/scalp atraumatic Eye Common normals: PERRL, EOMs intact bilaterally and conjunctivae normal Respiratory Common normals: normal respiratory effort, no retractions, no use of accessory muscles and clear to auscultation bilaterally Cardio Common normals: regular rate, regular rhythm, S1 normal heart sound and S2 normal heart sound Extremity Other: arthritic deformity bilat knee left calf nontender Neuro Common normals: oriented x3, CN's II-XII intact bilaterally, moves all extremities and no focal motor deficits Psych Appearance: grossly normal Course Vital Signs Vital signs: Vital Signs Temperature 98.2 F 10/29/23 21:36 Pulse Rate 69 10/29/23 21:36 Respiratory Rate 22 H 10/29/23 21:36 Blood Pressure 165/93 H 10/29/23 21:36 Pulse Oximetry 99 10/29/23 21:36 Oxygen Delivery Method Room Air 10/29/23 21:36 Temperature 98.2 F 10/29/23 21:36 Pulse Rate 69 10/29/23 21:36 Respiratory Rate 22 H 10/29/23 21:36 Blood Pressure 165/93 H 10/29/23 21:36 Pulse Oximetry 99 10/29/23 21:36 Oxygen Delivery Method Room Air 10/29/23 21:36 MDM - Extremity (Nontraumatic) MDM Narrative Medical decision making narrative: presents with nontraumatic pain of his left calf. Nontender. States pain progressed during the day. d-dimer positive. Patient given dose of lovenox and advised to return tomorrow for venous doppler of his leg. Given dose of Magnesium IV and it did help the cramping discomfort of the leg some Lab Data Labs: Lab Results 10/29/23 Range/Units 22:01 WBC 11.5 H (4.0-11.0) 10^3/uL RBC 4.41 L (4.70-6.10) 10^6/uL Hgb 13.3 L (14.0-18.0) g/dL Hct 41.1 L (42.0-54.0) % MCV 93.2 (80.0-94.0) fL MCH 30.2 (25.9-34.0) pg MCHC 32.4 (29.9-35.2) g/dL RDW 13.2 (11.0-15.0) % Plt Count 283 (150-450) 10^3/uL MPV 9.9 (9.5-13.5) fL Neut % (Auto) 51.3 (43.0-75.0) % Lymph % (Auto) 34.2 (20.5-60.0) % Traverse % (Auto) 7.3 (1.7-12.0) % Eos % (Auto) 6.3 (0.9-7.0) % Baso % (Auto) 0.7 (0.2-2.0) % Neut # (Auto) 5.9 (1.4-6.5) 10^3/uL Lymph # (Auto) 3.9 H (1.2-3.8) 10^3/uL Traverse # (Auto) 0.8 (0.3-0.8) 10^3/uL Eos # (Auto) 0.7 (0.0-0.7) 10^3/uL Baso # (Auto) 0.1 (0.0-0.1) 10^3/uL Abs Immat Gran (auto) 0.02 (0.00-0.03) 10^3/uL Imm/Tot Granulo (auto) 0.2 (0.0-0.5) % ESR 18 (<=20) mm/hr D-Dimer 0.79 H* (<=0.59) mg/L FEU Sodium 143 (136-145) mmol/L Potassium 3.8 (3.5-5.1) mmol/L Chloride 105 (98-107) mmol/L Carbon Dioxide 31.8 (21.0-32.0) mmol/L Anion Gap 10.0 BUN 11.0 (7.0-18.0) mg/dL Creatinine 0.93 (0.70-1.30) mg/dL Est GFR ( Amer) >60 (>=60) Est GFR (Non-Af Amer) >60 (>=60) BUN/Creatinine Ratio 11.8 Glucose 57 L (74-106) mg/dL Calcium 9.1 (8.5-10.1) mg/dL C-Reactive Protein <0.50 (<=0.50) mg/dL Discharge Plan Discharge Stand Alone Forms: Portal Instructions Chief Complaint: Extremity Problem, Nontraumatic Clinical Impression: Leg pain, left Patient Disposition: Home, Self-Care Prescriptions / Home Meds: No Action amlodipine 10 mg tablet 10 mg PO DAILY buprenorphine-naloxone [Suboxone] 8-2 mg film 0.5 film sublingual DAILY carvedilol 25 mg tablet 25 mg PO BID diclofenac sodium 50 mg tablet,delayed release (DR/EC) 50 mg PO Q8H PRN (Reason: pain) fluoxetine 20 mg capsule 40 mg PO QPM lisinopril 40 mg tablet 40 mg PO DAILY tizanidine 4 mg tablet 4 mg PO TID Print Language: Indonesian Instructions: Leg Pain (ED) Additional Instructions: return tomorrow for ultrasound of your leg as directed by nursing. Hold use of diclofenac for tonight Referrals: Shaista Corona RN INTENSIVE CARE UNIT [Primary Care Provider] - 1 week
[2023-10-29] MEDS: METHYLPREDNISOLONE SOD SUCC PF 125 MG/2 ML VIAL IVP (22:10)
[2023-10-29 22:11] LABS: Basophils Absolute Auto 0.1 10^3/uL (0.0-0.1); Basophils Percent Auto 0.7 % (0.2-2.0); Eosinophils Absolute Auto 0.7 10^3/uL (0.0-0.7); Eosinophils Percent Auto 6.3 % (0.9-7.0); Hematocrit 41.1 % (42.0-54.0); Hemoglobin 13.3 g/dL (14.0-18.0); Immature Granulocytes Abs Auto 0.02 10^3/uL (0.00-0.03); Immature Granulocytes Pct Auto 0.2 % (0.0-0.5); Lymphocytes Absolute Auto 3.9 10^3/uL (1.2-3.8); Lymphocytes Percent Auto 34.2 % (20.5-60.0); Mean Corpuscular HGB Conc 32.4 g/dL (29.9-35.2); Mean Corpuscular Hemoglobin 30.2 pg (25.9-34.0); Mean Corpuscular Volume 93.2 fL (80.0-94.0); Mean Platelet Volume 9.9 fL (9.5-13.5); Monocytes Absolute Auto 0.8 10^3/uL (0.3-0.8); Monocytes Percent Auto 7.3 % (1.7-12.0); Neutrophils Absolute Auto 5.9 10^3/uL (1.4-6.5); Neutrophils Percent Auto 51.3 % (43.0-75.0); Platelet Count 283 10^3/uL (150-450); Red Blood Count 4.41 10^6/uL (4.70-6.10); Red Cell Distribution Width 13.2 % (11.0-15.0); White Blood Count 11.5 10^3/uL (4.0-11.0)
[2023-10-29] MEDS: MAGNESIUM SULFATE IN WATER 2 GM/50 ML PREMIX IV (22:13)
[2023-10-29 22:15] LABS: Erythrocyte Sedimentation Rate 18 mm/hr (<=20)
[2023-10-29 22:22] LABS: BUN Creatinine Ratio 11.8; C Reactive Protein <0.50 mg/dL (<=0.50); Calcium 9.1 mg/dL (8.5-10.1); Carbon Dioxide 31.8 mmol/L (21.0-32.0); Chloride 105 mmol/L (98-107); Estimated GFR (African America >60 (>=60); Estimated GFR (Non-African Ame >60 (>=60); Glucose 57 mg/dL (74-106); Potassium 3.8 mmol/L (3.5-5.1); Sodium 143 mmol/L (136-145)
[2023-10-29 22:26] LABS: D Dimer 0.79 mg/L FEU (<=0.59)
[2023-10-29] MEDS: ENOXAPARIN SODIUM 100 MG/ML SYRINGE SUBQ (23:05)
== END 2023-10-29 23:24 | disposition home or self-care (01) ==
PROVIDERS: Emergency Provider Internal Medicine; PCP Nurse Practitioner
DX: M79.605 Pain in left leg (principal); Z79.899 Other long term (current) drug therapy
CPT/HCPCS: 36415; 80048; 85025; 85378; 85652; 86140; 96365; 96372; 96375; 99284; J2919

== ENCOUNTER 2023-10-30 07:28 | Outpatient (OUT) | payer BC, SELFPAY ==
--- OUTSIDE RECORDS SUMMARY | 2023-10-30 07:33 | XMS_ITS | CCD ---
Author Organization [facility] Care Team Providers Care Furniture Shampooer Name Role Phone Supriya Brown Unavailable AICTHERON, RADHA SHAISTA Primary Care Unavailable MARKER ., DR KELLER Attending Unavailable MARKER ., DR KELLER Admitting Unavailable AICHHOLZ, RADHA SHAISTA Primary Care Unavailable CHRISTINA STEVENS Consulting Unavailable JENIFER ., MERI Attending Unavailable JENIFER ., MERI Admitting Unavailable SKYE WOODS Consulting Unavailable CHERI .CATRACHITO Consulting Unavailable AICHHOLZ, BRINE MIXER OPERATOR SHAISTA Primary Care Unavailable CHRISTINA STEVENS Attending Unavailable CHRISTINA STEVENS Admitting Unavailable LORI RODRIGUEZ Consulting Unavailable AICHHOLZ, BRINE MIXER OPERATOR SHAISTA Primary Care Unavailable MIKKI .VASILE Attending Unavailable MIKKI VASILE Glaser Consulting Unavailable MIKKI .MICKID Admitting Unavailable LORI DOWNEY Consulting Unavailable MERI SIMPSON Consulting Unavailable Shaista Corona Primary Care Provider MD Derek Alex Admit Provider MD Sanjay Holt Other Provider MD Reginald Arroyo Other Provider MD Rubi Ramos Attending Provider MARLO Silva Emergency Provider MARLO Gay Attending Provider Ismael Huitron Unavailable Gregg PATTEN Attending Unavailable Gregg PATTEN Attending Unavailable Rosa CORTEZ Attending Unavailable Gregg PATTEN Attending Unavailable Shaista Corona Primary Care Provider [phone] DARLINE Garcia Emergency Provider [phone] SHAISTA CORONA Attending Unavailable Ej Garcia Attending [...] Facility (1 source) Azithromycin Drug Allergy Unknown [facility] [employer] Other (3 sources) Penicillin; Translations: [penicillin] Drug Allergy Unknown [facility] Repository (1 source) Azithromycin Drug Allergy [facility] Repository (5 sources) Erythromycin Drug Allergy 3 Rash [facility] Repository (1 source) E.E.S. Drug allergy (disorder) 3 [facility] Repository (5 sources) Penicillins; Translations: [Penicillins] Allergy to substance 3 Anaphylaxis [facility] (1 source) Erythromycin Drug Allergy rash [facility] [employer] Other (1 source) erythromycin base Drug allergy (disorder) 4 [facility] Repository Medications Current Medications Medication Drug Class(es) Dates Sig (Normalized) Sig (Original) [id number] 200 actuat albuterol 0.09 mg/actuat metered dose [...] mg/ml oral solution (1 source) Phenothiazine, Uncompetitive N-oebfjz-D-aspartate Receptor Antagonist, Sigma-1 Agonist Start: 07-31-2023 take [...] 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 SARS-CoV-2 (COVID-19) RNA ROWENA+probe Ql (Unsp spec) [facility] COVID-19 / Flu A/B / RSV PCR on 07-31-2023 SARS-CoV-2 (COVID-19) RNA ROWENA+probe Ql (Unsp spec) Normal [facility] Comment on above: Performed By: #### C OVID19 FLU RSV, CEPHEID NEG ####[facility] [id number] [place] [address] [facility] Cepheid COVID PCR Negativeon 07-31-2023 SARS-CoV-2 (COVID-19) RNA ROWENA+probe Ql (Unsp spec) Negative Normal Negative [facility] Comment on above: Result Comment: This is a duplicate Cepheid Xpert Xpress CoV-2/Flu/RSV Plus RNA by RT-PCR result to be used for statistical tracking purpose only.PERFORMED BY:[place] [address] [place] [id number] MEDICAL DIRECTORNATI LAUREN M.D. Performed By: #### C OVID19 FLU RSV, CEPHEID NEG ####[facility] [id number] [place] [address] [facility] Consenton 05-23-2023 Consent [id number]#[id number] [facility] Registrationon 05-23-2023 Registration [id number]#[id number] [facility] XR chest 2V*on 12-26-2022 XR chest 2V* [facility] Consenton 12-15-2022 Consent [id number]#1.00CD:1 27 [facility] In office Testingon 12-16-19 23 In office Testing [id number]#1.00CD:12 7 [facility] Registrationon 12-15-2022 Registration [id number]#1.00CD:1 27 [facility] Activated partial thrombopla stin time (aPTT) in platelet poor plasma by coagulation aOrdered By: Lisha Silva on 12-08-2022 aPTT Coag (PPP) [Time] 23.5 s 25.1-36.5 [facility] Automated erythrocytes count in urine sediment (number/area)Ordered By: Lisha Silva on 12-08-2022 RBC Auto (Urine sed) [#/Area] 1-2 [HPF] 0-4 [facility] Automated leukocytes count i n urine sediment (number/area)Ordered By: Lisha Silva on 12-08-2022 WBC Auto (Urine sed) [#/Area] None seen [HPF] 0-4 [facility] B-Type Natriuretic Peptideon 12-08-2022 Natriuretic peptide B (Bld) [Mass/Vol] 22.0 pg/mL Normal 5-100 [facility] Comment on above: Result Comment: PERF ORMED BY:[address] [place], [place] [phone] MEDICAL DIRECTORNATI LAUREN M.D. Performed By: #### H S TROP, CBC, BMP, BNP, DDIMER, PT, PTT ####[place] [id number] [facility] Basic Metabolic Panelon Anion gap [Moles/Vol] 10.9 mmol/L Normal 6.0-15.0 [facility] Comment on above: Performed By: #### H S TROP, CBC, BMP, BNP, DDIMER, PT, PTT ####[place] [id number] [facility] Calcium [Mass/Vol] 8.6 mg/dL Normal 8.6-10.3 [facility] Comment on above: Performed By: #### H S TROP, CBC, BMP, BNP, DDIMER, PT, PTT ####[place] [id number] [facility] Chloride [Moles/Vol] 105 mmol/L Normal 98-107 [facility] Comment on above: Performed By: #### H S TROP, CBC, BMP, BNP, DDIMER, PT, PTT ####[facility] [place] [address] [facility] CO2 [Moles/Vol] 28.0 mmol/L Normal 21.0-31.0 [facility] Comment on above: Performed By: #### H S TROP, CBC, BMP, BNP, DDIMER, PT, PTT ####[place] [address] [place] [address] [facility] Creatinine [Mass/Vol] 0.53 mg/dL Low 0.70-1.30 [facility] Comment on above: Performed By: #### H S TROP, CBC, BMP, BNP, DDIMER, PT, PTT ####[place] [address] [place] [address] [facility] Creatinine Clr Calc Pharmacy 188.22 [facility] Comment on above: Result Comment: PERF ORMED BY:[address] [place], [place] [id number] MEDICAL DIRECTORNATI LAUREN M.D. Performed By: #### H S TROP, CBC, BMP, BNP, DDIMER, PT, PTT ####[place] [address] [place] [address] [facility] GFR/1.73 sq M.predicted MDRD (S/P/Bld) [Vol rate/Area] mL/min/{1.73_m2} [facility] Comment on above: Performed By: #### H S TROP, CBC, BMP, BNP, DDIMER, PT, PTT ####[place] [address] [place] [address] [facility] Glucose [Mass/Vol] 99 mg/dL Normal 70-100 [facility] Comment on above: Result Comment: [facility] Glucose Reference Range is dependent on time and content of last meal. Glucose of more than 200 mg/dL in a nonstressed, ambulatory subject supports the diagnosis of Diabetes Mellitus. ADA recommended reference range Performed By: #### H S TROP, CBC, BMP, BNP, DDIMER, PT, PTT ####[place] [address] [place] [address] [facility] Potassium [Moles/Vol] 3.9 mmol/L Normal 3.5-5.1 [facility] Comment on above: Performed By: #### H S TROP, CBC, BMP, BNP, DDIMER, PT, PTT ####[facility] [id number] Sodium [Moles/Vol] 140 mmol/L Normal 136-145 [facility] Comment on above: Performed By: #### H S TROP, CBC, BMP, BNP, DDIMER, PT, PTT ####[facility] [id number] Urea nitrogen [Mass/Vol] 11 mg/dL Normal 7-25 [facility] Comment on above: Performed By: #### H S TROP, CBC, BMP, BNP, DDIMER, PT, PTT ####[facility] Basophils Auto (Bld) [#/Vol] Ordered By: Lisha Silva on 12-08-2022 Basophils (Bld) [#/Vol] 0.2 10*3/uL 0.0-0.2 [facility] Basophils/100 WBC Auto (Bld) Ordered By: Lisha Silva on 12-08-2022 Basophils/100 WBC (Bld) 2.6 % . [facility] Bilirubin Test strip Ql (U)O rdered By: Lisha Silva on 12-08-2022 Bilirubin Ql (U) Negative Negative [facility] CT angio chest PE protocolon 12-08-2022 CT angio chest PE protocol Normal [facility] Calcium [Mass/volume] in Ser um or PlasmaOrdered By: Lisha Silva on 12-08-2022 Calcium [Mass/Vol] 8.6 mg/dL 8.6-10.3 [facility] Carbon dioxide, total [Moles /volume] in Serum or PlasmaOrdered By: Lisha Silva on 12-08-2022 CO2 [Moles/Vol] 28.0 mmol/L 21.0-31.0 [facility] Chloride [Moles/volume] in S thang or PlasmaOrdered By: Lisha Silva on 12-08-2022 Chloride [Moles/Vol] 105 mmol/L 98-107 [facility] Color Auto (U)Ordered By: Khadijah Silva on 12-08-2022 Color (U) Yellow Yellow [facility] Complete Blood Count Auto Di ffon 12-08-2022 Basophils (Bld) [#/Vol] 0.2 10*3/uL Normal 0.0-0.2 [facility] Comment on above: Result Comment: PERF ORMED BY:[address] [place], [place] [id number] MEDICAL DIRECTORNATI LAUREN M.D. Performed By: #### H S TROP, CBC, BMP, BNP, DDIMER, PT, PTT ####[address] Basophils/100 WBC (Bld) 2.6 % Normal . [facility] Comment on above: Performed By: #### H S TROP, CBC, BMP, BNP, DDIMER, PT, PTT ####[address] Eosinophils (Bld) [#/Vol] 0.3 10*3/uL Normal 0.0-0.45 [facility] Comment on above: Performed By: #### H S TROP, CBC, BMP, BNP, DDIMER, PT, PTT ####[address] Eosinophils/100 WBC (Bld) 3.8 % Normal . [facility] Comment on above: Performed By: #### H S TROP, CBC, BMP, BNP, DDIMER, PT, PTT ####[address] Erythrocyte distribution width (RBC) [Ratio] 14.8 % Normal 12.0-14.8 [facility] Comment on above: Performed By: #### H S TROP, CBC, BMP, BNP, DDIMER, PT, PTT ####[address] Hematocrit (Bld) [Volume fraction] 35.8 % Low 38.8-50.0 [facility] Comment on above: Performed By: #### H S TROP, CBC, BMP, BNP, DDIMER, PT, PTT ####[address] Hemoglobin (Bld) [Mass/Vol] 12.0 g/dL Low 13.0-17.0 [facility] Comment on above: Performed By: #### H S TROP, CBC, BMP, BNP, DDIMER, PT, PTT ####[address] Lymphocytes (Bld) [#/Vol] 3.7 10*3/uL Normal 1.00-4.8 [facility] Comment on above: Performed By: #### H S TROP, CBC, BMP, BNP, DDIMER, PT, PTT ####[address] Lymphocytes/100 WBC (Bld) 48.0 % Normal . [facility] Comment on above: Performed By: #### H S TROP, CBC, BMP, BNP, DDIMER, PT, PTT ####[address] MCH (RBC) [Entitic mass] 30.4 pg Normal 27.5-35.2 [facility] Comment on above: Performed By: #### H S TROP, CBC, BMP, BNP, DDIMER, PT, PTT ####[address] MCV (RBC) [Entitic vol] 90.4 fL Normal 83.5-101 [facility] Comment on above: Performed By: #### H S TROP, CBC, BMP, BNP, DDIMER, PT, PTT ####[address] Mean Corpuscular HGB Conc 33.6 g/dL Normal 32.5-35.6 [facility] Comment on above: Performed By: #### H S TROP, CBC, BMP, BNP, DDIMER, PT, PTT ####[place] [address] [place] Monocytes (Bld) [#/Vol] 0.7 10*3/uL Normal 0.0-0.8 [facility] Comment on above: Performed By: #### H S TROP, CBC, BMP, BNP, DDIMER, PT, PTT ####[address] Monocytes/100 WBC (Bld) 21.84 % High 0.00-20.00 [facility] Comment on above: Result Comment: For adults in ED, MDW > 20.0 may be associated with a higher risk of sepsis during the first 12 hrs of hospital admission Performed By: #### H S TROP, CBC, BMP, BNP, DDIMER, PT, PTT ####[address] Monocytes/100 WBC (Bld) 9.6 % Normal . [facility] Comment on above: Performed By: #### H S TROP, CBC, BMP, BNP, DDIMER, PT, PTT ####[address] Neutrophils (Bld) [#/Vol] 2.7 10*3/uL Normal 1.8-7.7 [facility] Comment on above: Performed By: #### H S TROP, CBC, BMP, BNP, DDIMER, PT, PTT ####[address] Neutrophils/100 WBC (Bld) 36.0 % Normal . [facility] Comment on above: Performed By: #### H S TROP, CBC, BMP, BNP, DDIMER, PT, PTT ####[address] NRBC% 0.1 /100{WBC} Normal 0-0.5 [facility] Comment on above: Performed By: #### H S TROP, CBC, BMP, BNP, DDIMER, PT, PTT ####[address] Platelet mean volume (Bld) [Entitic vol] 7.6 fL Normal 6.6-10.1 [facility] Comment on above: Performed By: #### H S TROP, CBC, BMP, BNP, DDIMER, PT, PTT ####[facility] Platelets (Bld) [#/Vol] 299 10*3/uL Normal 150-450 [facility] Comment on above: Performed By: #### H S TROP, CBC, BMP, BNP, DDIMER, PT, PTT ####[place] [address] RBC (Bld) [#/Vol] 3.96 10*6/uL Normal 3.90-5.60 [facility] Comment on above: Performed By: #### H S TROP, CBC, BMP, BNP, DDIMER, PT, PTT ####[facility] WBC (Bld) [#/Vol] 7.6 10*3/uL Normal 4.1-10.5 [facility] Comment on above: Performed By: #### H S TROP, CBC, BMP, BNP, DDIMER, PT, PTT ####[facility] Creatinine [Mass/volume] in Serum or PlasmaOrdered By: Lisha Silva on 12-08-2022 Creatinine [Mass/Vol] 0.53 mg/dL 0.70-1.30 [facility] D-Dimer High Sensitivityon 0 12-08-2022 D-Dimer High Sensitivity 435 ng/mL High 0-243 [facility] Comment on above: Result Comment: The [...] in hospitalized patients due to co-morbid conditions.PERFORMED BY:[facility] [place], [place] [id number] MEDICAL ALEKSANDAR LAUREN M.D. Performed By: #### H S TROP, CBC, BMP, BNP, DDIMER, PT, PTT ####[address] [address] [facility] Dipstick and Microscopicon 0 12-08-2022 Appearance (U) Clear Normal Clear [facility] Comment on above: Order Comment: Name Collection Type:: Clean-Voided Midstream Performed By: #### A DDONUAPLUS ####[address] [address] [facility] Bacteria,Urine None Seen Normal None Seen [facility] Comment on above: Order Comment: Name Collection Type:: Clean-Voided Midstream Performed By: #### A DDONUAPLUS ####[address] [address] [facility] Bilirubin,Urine Negative Normal Negative [facility] Comment on above: Order Comment: Name Collection Type:: Clean-Voided Midstream Performed By: #### A DDONUAPLUS ####[address] [address] [facility] Color (U) Yellow Normal Yellow [facility] Comment on above: Order Comment: Name Collection Type:: Clean-Voided Midstream Performed By: #### A DDONUAPLUS ####[address] [address] [facility] Glucose Ql (U) Normal Normal Normal [facility] Comment on above: Order Comment: Name Collection Type:: Clean-Voided Midstream Performed By: #### A DDONUAPLUS ####[address] [address] [facility] Hyaline Casts,Urine 0-8 Normal 0-8 [facility] Comment on above: Order Comment: Name Collection Type:: Clean-Voided Midstream Result Comment: PERF ORMED BY:[place] [address] [place], [place] [id number] MEDICAL DIRECTORNATI LAUREN M.D. Performed By: #### A DDONUAPLUS ####[address] [address] [facility] Ketones Ql (U) Negative Normal Negative [facility] Comment on above: Order Comment: Name Collection Type:: Clean-Voided Midstream Performed By: #### A DDONUAPLUS ####[address] [address] [facility] Leukocyte esterase Test strip Ql (U) Negative Normal Negative [facility] Comment on above: Order Comment: Name Collection Type:: Clean-Voided Midstream Performed By: #### A DDONUAPLUS ####[address] [address] [facility] Nitrite,Urine Negative Normal Negative [facility] Comment on above: Order Comment: Name Collection Type:: Clean-Voided Midstream Performed By: #### A DDONUAPLUS ####[address] [address] [facility] Occult Blood,Urine Trace High Negative [facility] Comment on above: Order Comment: Name Collection Type:: Clean-Voided Midstream Result Comment: PERF ORMED BY:[address] [place], [place] [phone] MEDICAL DIRECTORNATI LAUREN M.D. Performed By: #### A DDONUAPLUS ####[address] [address] [facility] pH (U) 6.5 [pH] Normal 5.0-9.0 [facility] Comment on above: Order Comment: Name Collection Type:: Clean-Voided Midstream Performed By: #### A DDONUAPLUS ####[address] [address] [facility] Protein,Urine Negative Normal Negative [facility] Comment on above: Order Comment: Name Collection Type:: Clean-Voided Midstream Performed By: #### A DDONUAPLUS ####[address] [address] [facility] RBC,Urine 1-2 Normal 0-4 [facility] Comment on above: Order Comment: Name Collection Type:: Clean-Voided Midstream Performed By: #### A DDONUAPLUS ####[address] [address] [facility] Specificy Cyrus,Urine 1.040 High 1.001-1.03 0 [facility] Comment on above: Order Comment: Name Collection Type:: Clean-Voided Midstream Performed By: #### A DDONUAPLUS ####[address] [address] [facility] Squamous Epithelial Cell,Urine None Seen Normal 0-2 [facility] Comment on above: Order Comment: Name Collection Type:: Clean-Voided Midstream Performed By: #### A DDONUAPLUS ####[address] [address] [facility] Urobilinogen,Urine Normal Normal Normal [facility] Comment on above: Order Comment: Name Collection Type:: Clean-Voided Midstream Performed By: #### A DDONUAPLUS ####[address] [address] [facility] WBC,Urine None Seen Normal 0-4 [facility] Comment on above: Order Comment: Name Collection Type:: Clean-Voided Midstream Performed By: #### A DDONUAPLUS ####[address] [address] [facility] ECG 12 lead ECGon 12-08-2022 ECG 12 lead ECG Normal [facility] Eosinophils Auto (Bld) [#/Vo l]Ordered By: Lisha Silva on 12-08-2022 Eosinophils (Bld) [#/Vol] 0.3 10*3/uL 0.0-0.45 [facility] Eosinophils/100 WBC Auto (Bl d)Ordered By: Lisha Silva on 12-08-2022 Eosinophils/100 WBC (Bld) 3.8 % . [facility] Erythrocyte distribution wid th Auto (RBC) [Ratio]Ordered By: Lisha Silva on 12-08-2022 Erythrocyte distribution width (RBC) [Ratio] 14.8 % 12.0-14.8 [facility] Glucose [Mass/volume] in Ser um or PlasmaOrdered By: Lisha Silva on 12-08-2022 Glucose [Mass/Vol] 99 mg/dL 70-100 [facility] Comment on above: ADA recommended refe rence rangeRandom Glucose Reference Range is dependent on time and content of last meal. Glucose of more than 200 mg/dL in a nonstressed, ambulatory subject supports the diagnosis of Diabetes Mellitus. Hematocrit Auto (Bld) [Volum e fraction]Ordered By: Lisha Silva on 12-08-2022 Hematocrit (Bld) [Volume fraction] 35.8 % 38.8-50.0 [facility] Hemoglobin [Mass/volume] in BloodOrdered By: Lisha Silva on 12-08-2022 Hemoglobin (Bld) [Mass/Vol] 12.0 g/dL 13.0-17.0 [facility] Ketones Auto test strip (U) [Mass/Vol]Ordered By: Lisha Silva on 12-08-2022 Ketones (U) [Mass/Vol] Negative Negative [facility] - CoagulationOrde red By: Lisha iSlva on 12-08-2022 PT Coag (PPP) [Time] 12.6 s 9.0-12.9 [facility] - UrinalysisOrder ed By: Lisha Silva on 12-08-2022 Hyaline casts LM Ql (Urine sed) 0-8 [LPF] 0-8 [facility] Leukocytes [#/volume] correc wiliam for nucleated erythrocytes in Blood by Automated counOrdered By: Lisha Silva on 12-08-2022 WBC corrected for nucl RBC Auto (Bld) [#/Vol] 7.6 10*3/uL 4.1-10.5 [facility] Lymphocytes Auto (Bld) [#/Vo l]Ordered By: Lisha Silva on 12-08-2022 Lymphocytes (Bld) [#/Vol] 3.7 10*3/uL 1.00-4.8 [facility] Lymphocytes/100 WBC Auto (Bl d)Ordered By: Lisha Silva on 12-08-2022 Lymphocytes/100 WBC (Bld) 48.0 % . [facility] MCH Auto (RBC) [Entitic mass ]Ordered By: Lisha Silva on 12-08-2022 MCH (RBC) [Entitic mass] 30.4 pg 27.5-35.2 [facility] MCHC Auto (RBC) [Mass/Vol]Or dered By: Lisha Silva on 12-08-2022 MCHC (RBC) [Mass/Vol] 33.6 g/dL 32.5-35.6 [facility] MCV Auto (RBC) [Entitic vol] Ordered By: Lisha Silva on 12-08-2022 MCV (RBC) [Entitic vol] 90.4 fL 83.5-101 [facility] Monocyte distribution width [Entitic volume] in Blood by AutomatedOrdered By: Lisha Silva on 12-08-2022 Monocyte distribution width Auto (Bld) [Entitic vol] 21.84 % 0.00-20.00 [facility] Comment on above: For adults in ED, MD W > 20.0 may be associated with a higher risk of sepsis during the first 12 hrs of hospital admission Monocytes Auto (Bld) [#/Vol] Ordered By: Lisha Silva on 12-08-2022 Monocytes (Bld) [#/Vol] 0.7 10*3/uL 0.0-0.8 [facility] Monocytes/100 WBC Auto (Bld) Ordered By: Lisha Silva on 12-08-2022 Monocytes/100 WBC (Bld) 9.6 % . [facility] Natriuretic peptide B [Mass/ Vol]Ordered By: Lisha Silva on 12-08-2022 Natriuretic peptide B (Bld) [Mass/Vol] 22.0 pg/mL 5-100 [facility] Neutrophils Auto (Bld) [#/Vo l]Ordered By: Lisha Silva on 12-08-2022 Neutrophils (Bld) [#/Vol] 2.7 10*3/uL 1.8-7.7 [facility] Neutrophils/100 WBC Auto (Bl d)Ordered By: Lisha Silva on 12-08-2022 Neutrophils/100 WBC (Bld) 36.0 % . [facility] Nitrite Test strip Ql (U)Ord ered By: Lisha Silva on 12-08-2022 Nitrite Ql (U) Negative Negative [facility] No Panel InformationOrdered By: Lisha Silva on 12-08-2022 D-Dimer Quantitative (PE/DVT) 435 ng/mL 0-243 [facility] Comment on above: The reference range [...] conditions. Estimated GFR (CKD-EPI) > 60.0 mL/Min [facility] Creatinine Clearance (Chem 188.22 [facility] Nucleated erythrocytes [Pres ence] in Blood by Automated countOrdered By: Lisha Silva on 12-08-2022 Nucleated RBC Auto Ql (Bld) 0.1 /100{WBC} 0-0.5 [facility] Partial Thromboplastin Timeo n 12-08-2022 aPTT Coag (Bld) [Time] 23.5 s Low 25.1-36.5 [facility] Comment on above: Performed By: #### H S TROP, CBC, BMP, BNP, DDIMER, PT, PTT ####[facility] [id number] [place] [id number] [facility] Platelet mean volume Auto (B ld) [Entitic vol]Ordered By: Lisha Silva on 12-08-2022 Platelet mean volume (Bld) [Entitic vol] 7.6 fL 6.6-10.1 [facility] Platelet poor plasma interna tional normalized ratio (INR) by coagulation assay (relatOrdered By: Lisha Silva on 12-08-2022 INR Coag (PPP) [Relative time] 1.1 {INR} [facility] Comment on above: INR Therapeutic Rang [...] 12-08-2022 Platelets (Bld) [#/Vol] 299 10*3/uL 150-450 [facility] Potassium [Moles/volume] in Serum or PlasmaOrdered By: Lisha Silva on 12-08-2022 Potassium [Moles/Vol] 3.9 mmol/L 3.5-5.1 [facility] Protein Auto test strip (U) [Mass/Vol]Ordered By: Lisha Sivla on 12-08-2022 Protein (U) [Mass/Vol] Negative Negative [facility] Prothrombin Time INRon 12-08 INR Coag (PPP) [Relative time] 1.1 {INR} Normal [facility] Comment on above: Result Comment: INR [...] TROP, CBC, BMP, BNP, DDIMER, PT, PTT ####[facility] [id number] PT Coag (PPP) [Time] 12.6 s Normal 9.0-12.9 [facility] Comment on above: Performed By: #### H S TROP, CBC, BMP, BNP, DDIMER, PT, PTT ####[facility] [id number] [place] [id number] [facility] RBC Auto (Bld) [#/Vol]Ordere d By: Lisha Silva on 12-08-2022 RBC (Bld) [#/Vol] 3.96 10*6/uL 3.90-5.60 [facility] Serum or plasma anion gap de terminationOrdered By: Lisha Silva on 12-08-2022 Anion gap [Moles/Vol] 10.9 mmol/L 6.0-15.0 [facility] Sodium [Moles/volume] in Ser um or PlasmaOrdered By: Lisha Silva on 12-08-2022 Sodium [Moles/Vol] 140 mmol/L 136-145 [facility] Specific gravity Auto test s trip (U) [Rel density]Ordered By: Lisha Silva on 12-08-2022 Specific gravity (U) [Rel density] 1.040 1.001-1.03 0 [facility] Squamous epithelial cells de tection in urine sediment by light microscopyOrdered By: Lisha Silva on 12-08-2022 Epithelial cells.squamous LM Ql (Urine sed) None seen [HPF] 0-2 [facility] Troponin I High Sensitivityo n 12-08-2022 Troponin I High Sensitivity 3.7 pg/mL Normal 0.0-20.0 [facility] Comment on above: Result Comment: PERF ORMED BY:[facility] [place], [place] [phone] MEDICAL DIRECTORNATI LAUREN M.D. Performed By: #### H S TROP, CBC, BMP, BNP, DDIMER, PT, PTT ####[facility] [id number] [place] [address] [facility] Troponin I.cardiac [Mass/vol ume] in Serum or Plasma by Detection limit <= 0.01 ng/Ordered By: Lisha Silva on 12-08-2022 Troponin I.cardiac DL <= 0.01 ng/mL [Mass/Vol] 3.7 pg/mL 0.0-20.0 [facility] Urea nitrogen [Mass/volume] in Serum or PlasmaOrdered By: Lisha Silva on 12-08-2022 Urea nitrogen [Mass/Vol] 11 mg/dL 7-25 [facility] Urine bacteria detection by automated methodOrdered By: Lisha Silva on 12-08-2022 Bacteria Auto Ql (U) None seen None Seen [facility] Urine clarity by refractomet ry automatedOrdered By: Lisha Silva on 12-08-2022 Clarity Refractometry automated (U) Clear Clear [facility] Urine glucose measurement by automated test strip (mass/volume)Ordered By: Lisha Silva on 12-08-2022 Glucose Auto test strip (U) [Mass/Vol] Normal mg/dL Normal [facility] Urine hemoglobin detection b y automated test stripOrdered By: Lisha Silva on 12-08-2022 Hemoglobin Auto test strip Ql (U) Trace Negative [facility] Urine leukocyte esterase det ection by automated test stripOrdered By: Lisha Silva on 12-08-2022 Leukocyte esterase Auto test strip Ql (U) Negative Negative [facility] Urobilinogen Auto test strip (U) [Mass/Vol]Ordered By: Lisha Silva on 12-08-2022 Urobilinogen (U) [Mass/Vol] Normal mg/dL Normal [facility] WBC Auto (Bld) [#/Vol]Ordere d By: Lisha Silva on 12-08-2022 WBC (Bld) [#/Vol] 7.6 10*3/uL 4.1-10.5 [facility] pH Auto test strip (U)Ordere d By: Lisha Silva on 12-08-2022 pH (U) 6.5 [pH] 5.0-9.0 [facility] Alanine aminotransferase [En zymatic activity/volume] in Serum or PlasmaOrdered By: Shant Villegas on 11-21-2022 ALT [Catalytic activity/Vol] 40 U/L 7-52 [facility] Albumin [Mass/volume] in Ser um or Plasma by Bromocresol green (BCG) dye binding methoOrdered By: Shant Villegas on 11-21-2022 Albumin BCG dye [Mass/Vol] 2.3 g/dL 3.5-5.7 [facility] Alkaline phosphatase [Enzyma tic activity/volume] in Serum or PlasmaOrdered By: Shant Villegas on 11-21-2022 ALP [Catalytic activity/Vol] 110 U/L 34-104 [facility] Aspartate aminotransferase [ Enzymatic activity/volume] in Serum or PlasmaOrdered By: Shant Villegas on 11-21-2022 AST [Catalytic activity/Vol] 25 U/L 13-39 [facility] Basophils Auto (Bld) [#/Vol] Ordered By: Evi Gay on 11-21-2022 Basophils (Bld) [#/Vol] 0.1 10*3/uL 0.0-0.2 [facility] Basophils/100 WBC Auto (Bld) Ordered By: Evi Gay on 11-21-2022 Basophils/100 WBC (Bld) 1.4 % . [facility] Bilirubin.total [Mass/volume ] in Serum or PlasmaOrdered By: Shant Villegas on 11-21-2022 Bilirubin [Mass/Vol] 0.4 mg/dL 0.3-1.0 [facility] Calcium [Mass/volume] in Ser um or PlasmaOrdered By: Shant Villegas on 11-21-2022 Calcium [Mass/Vol] 8.1 mg/dL 8.6-10.3 [facility] Carbon dioxide, total [Moles /volume] in Serum or PlasmaOrdered By: Shant Villegas on 11-21-2022 CO2 [Moles/Vol] 31.0 mmol/L 21.0-31.0 [facility] Chloride [Moles/volume] in S thang or PlasmaOrdered By: Shant Villegas on 11-21-2022 Chloride [Moles/Vol] 105 mmol/L 98-107 [facility] Complete Blood Count Auto Di ffon 11-21-2022 Basophils (Bld) [#/Vol] 0.1 10*3/uL Normal 0.0-0.2 [facility] Comment on above: Result Comment: PERF ORMED BY:[facility] [place], [place] [phone] MEDICAL DIRECTORNATI LAUREN M.D. Performed By: #### C ####[facility] [place] [address] [facility] Basophils/100 WBC (Bld) 1.4 % Normal . [facility] Comment on above: Performed By: #### C BC ####[address] Eosinophils (Bld) [#/Vol] 0.3 10*3/uL Normal 0.0-0.45 [facility] Comment on above: Performed By: #### C BC ####[address] Eosinophils/100 WBC (Bld) 3.7 % Normal . [facility] Comment on above: Performed By: #### C BC ####[address] Erythrocyte distribution width (RBC) [Ratio] 13.8 % Normal 12.0-14.8 [facility] Comment on above: Performed By: #### C BC ####[address] Hematocrit (Bld) [Volume fraction] 25.0 % Low 38.8-50.0 [facility] Comment on above: Performed By: #### C BC ####[address] Hemoglobin (Bld) [Mass/Vol] 8.4 g/dL Low 13.0-17.0 [facility] Comment on above: Performed By: #### C BC ####[address] Lymphocytes (Bld) [#/Vol] 2.2 10*3/uL Normal 1.00-4.8 [facility] Comment on above: Performed By: #### C BC ####[address] Lymphocytes/100 WBC (Bld) 28.3 % Normal . [facility] Comment on above: Performed By: #### C BC ####[address] MCH (RBC) [Entitic mass] 30.2 pg Normal 27.5-35.2 [facility] Comment on above: Performed By: #### C BC ####[address] [place] [address] [facility] MCV (RBC) [Entitic vol] 89.8 fL Normal 83.5-101 [facility] Comment on above: Performed By: #### C BC ####[address] [address] [facility] Mean Corpuscular HGB Conc 33.6 g/dL Normal 32.5-35.6 [facility] Comment on above: Performed By: #### C BC ####[address] [address] [facility] Monocytes (Bld) [#/Vol] 0.8 10*3/uL Normal 0.0-0.8 [facility] Comment on above: Performed By: #### C BC ####[address] [address] [facility] Monocytes/100 WBC (Bld) 10.5 % Normal . [facility] Comment on above: Performed By: #### C BC ####[address] [address] [facility] Neutrophils (Bld) [#/Vol] 4.4 10*3/uL Normal 1.8-7.7 [facility] Comment on above: Performed By: #### C BC ####[address] [address] [facility] Neutrophils/100 WBC (Bld) 56.1 % Normal . [facility] Comment on above: Performed By: #### C BC ####[address] [address] [facility] NRBC% 0.2 /100{WBC} Normal 0-0.5 [facility] Comment on above: Performed By: #### C BC ####[address] [address] [facility] Platelet mean volume (Bld) [Entitic vol] 7.2 fL Normal 6.6-10.1 [facility] Comment on above: Performed By: #### C BC ####[address] [address] [place] [address] [facility] Platelets (Bld) [#/Vol] 486 10*3/uL High 150-450 [facility] Comment on above: Performed By: #### C BC ####[address] [address] [facility] RBC (Bld) [#/Vol] 2.78 10*6/uL Low 3.90-5.60 [facility] Comment on above: Performed By: #### C BC ####[address] [address] [facility] WBC (Bld) [#/Vol] 7.9 10*3/uL Normal 4.1-10.5 [facility] Comment on above: Performed By: #### C BC ####[address] [address] [facility] Comprehensive Metabolic Pane tiago 11-21-2022 Albumin [Mass/Vol] 2.3 g/dL Low 3.5-5.7 [facility] Comment on above: Performed By: #### C MP, MG ####[place] [id number] [facility] Albumin/Globulin [Mass ratio] 0.7 {ratio} Normal [facility] Comment on above: Performed By: #### C MP, MG ####[address] [address] [facility] ALP [Catalytic activity/Vol] 110 U/L High 34-104 [facility] Comment on above: Performed By: #### C MP, MG ####[address] [address] [facility] ALT [Catalytic activity/Vol] 40 U/L Normal 7-52 [facility] Comment on above: Performed By: #### C MP, MG ####[place] [id number] [facility] Anion gap [Moles/Vol] 8.7 mmol/L Normal 6.0-15.0 [facility] Comment on above: Performed By: #### C MP, MG ####[facility] [place] [address] [facility] AST [Catalytic activity/Vol] 25 U/L Normal 13-39 [facility] Comment on above: Performed By: #### C MP, MG ####[facility] [place] [address] [facility] Bilirubin [Mass/Vol] 0.4 mg/dL Normal 0.3-1.0 [facility] Comment on above: Performed By: #### C MP, MG ####[address] [place] [address] [facility] Calcium [Mass/Vol] 8.1 mg/dL Low 8.6-10.3 [facility] Comment on above: Performed By: #### C MP, MG ####[address] [place] [address] [facility] Chloride [Moles/Vol] 105 mmol/L Normal 98-107 [facility] Comment on above: Performed By: #### C MP, MG ####[address] [place] [address] [facility] CO2 [Moles/Vol] 31.0 mmol/L Normal 21.0-31.0 [facility] Comment on above: Performed By: #### C MP, MG ####[address] [place] [address] [facility] Creatinine [Mass/Vol] 0.43 mg/dL Low 0.70-1.30 [facility] Comment on above: Performed By: #### C MP, MG ####[address] [place] [address] [facility] Creatinine Clr Calc Pharmacy 231.99 [facility] Comment on above: Performed By: #### C MP, MG ####[address] [place] [address] [place] GFR/1.73 sq M.predicted MDRD (S/P/Bld) [Vol rate/Area] mL/min/{1.73_m2} [facility] Comment on above: Performed By: #### C MP, MG ####[address] [place] [id number] [facility] Globulin (S) [Mass/Vol] 3.4 g/dL Normal [facility] Comment on above: Performed By: #### C MP, MG ####[place] [id number] [facility] Glucose [Mass/Vol] 105 mg/dL High 70-100 [facility] Comment on above: Result Comment: [facility] Glucose Reference Range is dependent on time and content of last meal. Glucose of more than 200 mg/dL in a nonstressed, ambulatory subject supports the diagnosis of Diabetes Mellitus. ADA recommended reference range Performed By: #### C MP, MG ####[place] [id number] [facility] Potassium [Moles/Vol] 3.7 mmol/L Normal 3.5-5.1 [facility] Comment on above: Performed By: #### C MP, MG ####[place] [id number] [facility] Protein [Mass/Vol] 5.7 g/dL Low 6.4-8.9 [facility] Comment on above: Performed By: #### C MP, MG ####[place] [id number] [facility] Sodium [Moles/Vol] 141 mmol/L Normal 136-145 [facility] Comment on above: Performed By: #### C MP, MG ####[place] [id number] [facility] Urea nitrogen [Mass/Vol] 11 mg/dL Normal 7-25 [facility] Comment on above: Performed By: #### C MP, MG ####[place] [id number] [facility] Creatinine [Mass/volume] in Serum or PlasmaOrdered By: Shant Villegas on 11-21-2022 Creatinine [Mass/Vol] 0.43 mg/dL 0.70-1.30 [facility] Eosinophils Auto (Bld) [#/Vo l]Ordered By: Evi Gay on 11-21-2022 Eosinophils (Bld) [#/Vol] 0.3 10*3/uL 0.0-0.45 [facility] Eosinophils/100 WBC Auto (Bl d)Ordered By: Evi Gay on 11-21-2022 Eosinophils/100 WBC (Bld) 3.7 % . [facility] Erythrocyte distribution wid th Auto (RBC) [Ratio]Ordered By: Evi Gay on 11-21-2022 Erythrocyte distribution width (RBC) [Ratio] 13.8 % 12.0-14.8 [facility] Globulin Calc (S) [Mass/Vol] Ordered By: Shant Villegas on 11-21-2022 Globulin (S) [Mass/Vol] 3.4 g/dL [facility] Glucose [Mass/volume] in Ser um or PlasmaOrdered By: Shant Villegas on 11-21-2022 Glucose [Mass/Vol] 105 mg/dL 70-100 [facility] Comment on above: ADA recommended refe rence rangeRandom Glucose Reference Range is dependent on time and content of last meal. Glucose of more than 200 mg/dL in a nonstressed, ambulatory subject supports the diagnosis of Diabetes Mellitus. Hematocrit Auto (Bld) [Volum e fraction]Ordered By: Evi Gay on 11-21-2022 Hematocrit (Bld) [Volume fraction] 25.0 % 38.8-50.0 [facility] Hemoglobin [Mass/volume] in BloodOrdered By: Evi Gay on 11-21-2022 Hemoglobin (Bld) [Mass/Vol] 8.4 g/dL 13.0-17.0 [facility] Leukocytes [#/volume] correc wiliam for nucleated erythrocytes in Blood by Automated counOrdered By: Evi Gay on 11-21-2022 WBC corrected for nucl RBC Auto (Bld) [#/Vol] 7.9 10*3/uL 4.1-10.5 [facility] Lymphocytes Auto (Bld) [#/Vo l]Ordered By: Evi Gay on 11-21-2022 Lymphocytes (Bld) [#/Vol] 2.2 10*3/uL 1.00-4.8 [facility] Lymphocytes/100 WBC Auto (Bl d)Ordered By: Evi Deidra on 11-21-2022 Lymphocytes/100 WBC (Bld) 28.3 % . [facility] MCH Auto (RBC) [Entitic mass ]Ordered By: Evi Deidra on 11-21-2022 MCH (RBC) [Entitic mass] 30.2 pg 27.5-35.2 [facility] MCHC Auto (RBC) [Mass/Vol]Or dered By: Evi Deidra on 11-21-2022 MCHC (RBC) [Mass/Vol] 33.6 g/dL 32.5-35.6 [facility] MCV Auto (RBC) [Entitic vol] Ordered By: Evi Deidra on 11-21-2022 MCV (RBC) [Entitic vol] 89.8 fL 83.5-101 [facility] Magnesiumon 11-21-2022 Magnesium [Mass/Vol] 1.8 mg/dL Low 1.9-2.7 [facility] Comment on above: Result Comment: PERF ORMED BY:[facility] [place], [place] [id number] MEDICAL DIRECTORNATI LAUREN M.D. Performed By: #### C MP, MG ####[facility] [place] [address] [facility] Magnesium [Mass/volume] in S thang or PlasmaOrdered By: Shant Villegas on 11-21-2022 Magnesium [Mass/Vol] 1.8 mg/dL 1.9-2.7 [facility] Monocytes Auto (Bld) [#/Vol] Ordered By: Evi Deidra on 11-21-2022 Monocytes (Bld) [#/Vol] 0.8 10*3/uL 0.0-0.8 [facility] Monocytes/100 WBC Auto (Bld) Ordered By: Evi Deidra on 11-21-2022 Monocytes/100 WBC (Bld) 10.5 % . [facility] Neutrophils Auto (Bld) [#/Vo l]Ordered By: Evi Deidra on 11-21-2022 Neutrophils (Bld) [#/Vol] 4.4 10*3/uL 1.8-7.7 [facility] Neutrophils/100 WBC Auto (Bl d)Ordered By: Evi Deidra on 11-21-2022 Neutrophils/100 WBC (Bld) 56.1 % . [facility] No Panel InformationOrdered By: Shant Villegas on 11-21-2022 Estimated GFR (CKD-EPI) > 60.0 mL/Min [facility] Creatinine Clearance (Chem 231.99 [facility] Nucleated erythrocytes [Pres ence] in Blood by Automated countOrdered By: Evi Gay on 11-21-2022 Nucleated RBC Auto Ql (Bld) 0.2 /100{WBC} 0-0.5 [facility] Platelet mean volume Auto (B ld) [Entitic vol]Ordered By: Evi Gay on 11-21-2022 Platelet mean volume (Bld) [Entitic vol] 7.2 fL 6.6-10.1 [facility] Platelets Auto (Bld) [#/Vol] Ordered By: Evi Gay on 11-21-2022 Platelets (Bld) [#/Vol] 486 10*3/uL 150-450 [facility] Potassium [Moles/volume] in Serum or PlasmaOrdered By: Shant Villegas on 11-21-2022 Potassium [Moles/Vol] 3.7 mmol/L 3.5-5.1 [facility] Protein [Mass/volume] in Ser um or PlasmaOrdered By: Shant Villegas on 11-21-2022 Protein [Mass/Vol] 5.7 g/dL 6.4-8.9 [facility] RBC Auto (Bld) [#/Vol]Ordere d By: Evi Gay on 11-21-2022 RBC (Bld) [#/Vol] 2.78 10*6/uL 3.90-5.60 [facility] Serum or plasma albumin/glob ulin mass ratioOrdered By: Shant Villegas on 11-21-2022 Albumin/Globulin [Mass ratio] 0.7 {ratio} [facility] Serum or plasma anion gap de terminationOrdered By: Shant Villegas on 11-21-2022 Anion gap [Moles/Vol] 8.7 mmol/L 6.0-15.0 [facility] Sodium [Moles/volume] in Ser um or PlasmaOrdered By: Shant Villegas on 11-21-2022 Sodium [Moles/Vol] 141 mmol/L 136-145 [facility] Urea nitrogen [Mass/volume] in Serum or PlasmaOrdered By: Shant Villegas on 11-21-2022 Urea nitrogen [Mass/Vol] 11 mg/dL 7-25 [facility] WBC Auto (Bld) [#/Vol]Ordere d By: Evi Gay on 11-21-2022 WBC (Bld) [#/Vol] 7.9 10*3/uL 4.1-10.5 [facility] Complete Blood Count Auto Di ffon 11-20-2022 Basophils (Bld) [#/Vol] 0.1 10*3/uL Normal 0.0-0.2 [facility] Comment on above: Result Comment: PERF ORMED BY:[address] [place], [place] [phone] MEDICAL DIRECTORNATI LAUREN M.D. Performed By: #### C BC ####[address] Basophils/100 WBC (Bld) 1.0 % Normal . [facility] Comment on above: Performed By: #### C BC ####[id number] [facility] Eosinophils (Bld) [#/Vol] 0.2 10*3/uL Normal 0.0-0.45 [facility] Comment on above: Performed By: #### C BC ####[id number] [facility] Eosinophils/100 WBC (Bld) 2.2 % Normal . [facility] Comment on above: Performed By: #### C BC ####[id number] [facility] Erythrocyte distribution width (RBC) [Ratio] 13.7 % Normal 12.0-14.8 [facility] Comment on above: Performed By: #### C BC ####[id number] [place] Hematocrit (Bld) [Volume fraction] 29.6 % Low 38.8-50.0 [facility] Comment on above: Performed By: #### C BC ####[address] Hemoglobin (Bld) [Mass/Vol] 9.8 g/dL Low 13.0-17.0 [facility] Comment on above: Performed By: #### C BC ####[address] Lymphocytes (Bld) [#/Vol] 1.9 10*3/uL Normal 1.00-4.8 [facility] Comment on above: Performed By: #### C BC ####[address] Lymphocytes/100 WBC (Bld) 18.5 % Normal . [facility] Comment on above: Performed By: #### C BC ####[address] MCH (RBC) [Entitic mass] 29.5 pg Normal 27.5-35.2 [facility] Comment on above: Performed By: #### C BC ####[address] MCV (RBC) [Entitic vol] 89.4 fL Normal 83.5-101 [facility] Comment on above: Performed By: #### C BC ####[address] Mean Corpuscular HGB Conc 33.0 g/dL Normal 32.5-35.6 [facility] Comment on above: Performed By: #### C BC ####[address] Monocytes (Bld) [#/Vol] 1.0 10*3/uL High 0.0-0.8 [facility] Comment on above: Performed By: #### C BC ####[address] Monocytes/100 WBC (Bld) 9.9 % Normal . [facility] Comment on above: Performed By: #### C BC ####[id number] [facility] Neutrophils (Bld) [#/Vol] 6.9 10*3/uL Normal 1.8-7.7 [facility] Comment on above: Performed By: #### C BC ####[id number] [facility] Neutrophils/100 WBC (Bld) 68.4 % Normal . [facility] Comment on above: Performed By: #### C BC ####[address] NRBC% 0.1 /100{WBC} Normal 0-0.5 [facility] Comment on above: Performed By: #### C BC ####[address] Platelet mean volume (Bld) [Entitic vol] 7.5 fL Normal 6.6-10.1 [facility] Comment on above: Performed By: #### C BC ####[id number] [facility] Platelets (Bld) [#/Vol] 434 10*3/uL Normal 150-450 [facility] Comment on above: Performed By: #### C BC ####[address] [id number] [facility] RBC (Bld) [#/Vol] 3.31 10*6/uL Low 3.90-5.60 [facility] Comment on above: Performed By: #### C BC ####[id number] [facility] WBC (Bld) [#/Vol] 10.0 10*3/uL Normal 4.1-10.5 [facility] Comment on above: Performed By: #### C BC ####[address] [id number] [facility] Comprehensive Metabolic Pane tiago 11-20-2022 Albumin [Mass/Vol] 2.4 g/dL Low 3.5-5.7 [facility] Comment on above: Performed By: #### C MP, MG ####[address] [id number] [facility] Albumin/Globulin [Mass ratio] 0.7 {ratio} Normal [facility] Comment on above: Performed By: #### C MP, MG ####[place] [id number] [facility] ALP [Catalytic activity/Vol] 118 U/L High 34-104 [facility] Comment on above: Performed By: #### C MP, MG ####[place] [id number] [facility] ALT [Catalytic activity/Vol] 47 U/L Normal 7-52 [facility] Comment on above: Performed By: #### C MP, MG ####[place] [id number] [facility] Anion gap [Moles/Vol] 10.6 mmol/L Normal 6.0-15.0 [facility] Comment on above: Performed By: #### C MP, MG ####[place] [id number] [facility] AST [Catalytic activity/Vol] 21 U/L Normal 13-39 [facility] Comment on above: Performed By: #### C MP, MG ####[id number] [facility] Bilirubin [Mass/Vol] 0.6 mg/dL Normal 0.3-1.0 [facility] Comment on above: Performed By: #### C MP, MG ####[place] [id number] [facility] Calcium [Mass/Vol] 8.2 mg/dL Low 8.6-10.3 [facility] Comment on above: Performed By: #### C MP, MG ####[place] [id number] [facility] Chloride [Moles/Vol] 100 mmol/L Normal 98-107 [facility] Comment on above: Performed By: #### C MP, MG ####[place] [address] CO2 [Moles/Vol] 31.8 mmol/L High 21.0-31.0 [facility] Comment on above: Performed By: #### C MP, MG ####[place] [address] Creatinine [Mass/Vol] 0.35 mg/dL Low 0.70-1.30 [facility] Comment on above: Performed By: #### C MP, MG ####[place] [address] Creatinine Clr Calc Pharmacy 285.02 [facility] Comment on above: Performed By: #### C MP, MG ####[place] [address] GFR/1.73 sq M.predicted MDRD (S/P/Bld) [Vol rate/Area] mL/min/{1.73_m2} [facility] Comment on above: Performed By: #### C MP, MG ####[address] Globulin (S) [Mass/Vol] 3.6 g/dL [facility] Comment on above: Performed By: #### C MP, MG ####[address] Glucose [Mass/Vol] 89 mg/dL Normal 70-100 [facility] Comment on above: Result Comment: [facility] [place] Glucose Reference Range is dependent on time and content of last meal. Glucose of more than 200 mg/dL in a nonstressed, ambulatory subject supports the diagnosis of Diabetes Mellitus. ADA recommended reference range Performed By: #### C MP, MG ####[facility] Potassium [Moles/Vol] 3.4 mmol/L Low 3.5-5.1 [facility] Comment on above: Performed By: #### C MP, MG ####[address] [place] [address] [facility] Protein [Mass/Vol] 6.0 g/dL Low 6.4-8.9 [facility] Comment on above: Performed By: #### C MP, MG ####[address] [place] [address] [facility] Sodium [Moles/Vol] 139 mmol/L Normal 136-145 [facility] Comment on above: Performed By: #### C MP, MG ####[id number] [facility] Urea nitrogen [Mass/Vol] 13 mg/dL Normal 7-25 [facility] Comment on above: Performed By: #### C MP, MG ####[address] [address] [facility] Magnesiumon 11-20-2022 Magnesium [Mass/Vol] 1.8 mg/dL Low 1.9-2.7 [facility] Comment on above: Result Comment: PERF ORMED BY:[address] [place], [place] [phone] MEDICAL DIRECTORNATI LAUREN M.D. Performed By: #### C MP, MG ####[id number] [facility] XR chest 2V*on 11-20-2022 XR chest 2V* Normal [facility] Complete Blood Count Auto Di ffon 11-19-2022 Basophils (Bld) [#/Vol] 0.1 10*3/uL Normal 0.0-0.2 [facility] Comment on above: Result Comment: PERF ORMED BY:[address] [place], [place] [phone] MEDICAL DIRECTORNATI LAUREN M.D. Performed By: #### C BC ####[address] [address] [facility] Basophils/100 WBC (Bld) 1.2 % Normal . [facility] Comment on above: Performed By: #### C BC ####[id number] [facility] Eosinophils (Bld) [#/Vol] 0.2 10*3/uL Normal 0.0-0.45 [facility] Comment on above: Performed By: #### C BC ####[id number] [facility] Eosinophils/100 WBC (Bld) 2.0 % Normal . [facility] Comment on above: Performed By: #### C BC ####[id number] [facility] Erythrocyte distribution width (RBC) [Ratio] 13.7 % Normal 12.0-14.8 [facility] Comment on above: Performed By: #### C BC ####[id number] [facility] Hematocrit (Bld) [Volume fraction] 26.0 % Low 38.8-50.0 [facility] Comment on above: Performed By: #### C BC ####[id number] [facility] Hemoglobin (Bld) [Mass/Vol] 8.6 g/dL Low 13.0-17.0 [facility] Comment on above: Performed By: #### C BC ####[id number] [facility] Lymphocytes (Bld) [#/Vol] 2.0 10*3/uL Normal 1.00-4.8 [facility] Comment on above: Performed By: #### C BC ####[id number] [facility] Lymphocytes/100 WBC (Bld) 16.7 % Normal . [facility] Comment on above: Performed By: #### C BC ####[id number] [facility] MCH (RBC) [Entitic mass] 29.3 pg Normal 27.5-35.2 [facility] Comment on above: Performed By: #### C BC ####[address] [place] [address] [place] MCV (RBC) [Entitic vol] 89.0 fL Normal 83.5-101 [facility] Comment on above: Performed By: #### C BC ####[address] Mean Corpuscular HGB Conc 32.9 g/dL Normal 32.5-35.6 [facility] Comment on above: Performed By: #### C BC ####[address] Monocytes (Bld) [#/Vol] 1.1 10*3/uL High 0.0-0.8 [facility] Comment on above: Performed By: #### C BC ####[address] Monocytes/100 WBC (Bld) 9.6 % Normal . [facility] Comment on above: Performed By: #### C BC ####[address] Neutrophils (Bld) [#/Vol] 8.3 10*3/uL High 1.8-7.7 [facility] Comment on above: Performed By: #### C BC ####[address] Neutrophils/100 WBC (Bld) 70.5 % Normal . [facility] Comment on above: Performed By: #### C BC ####[address] NRBC% 0.1 /100{WBC} Normal 0-0.5 [facility] Comment on above: Performed By: #### C BC ####[address] Platelet mean volume (Bld) [Entitic vol] 7.6 fL Normal 6.6-10.1 [facility] Comment on above: Performed By: #### C BC ####[address] Platelets (Bld) [#/Vol] 451 10*3/uL High 150-450 [facility] Comment on above: Performed By: #### C BC ####[id number] [facility] RBC (Bld) [#/Vol] 2.92 10*6/uL Low 3.90-5.60 [facility] Comment on above: Performed By: #### C BC ####[id number] [facility] WBC (Bld) [#/Vol] 11.8 10*3/uL High 4.1-10.5 [facility] Comment on above: Performed By: #### C BC ####[id number] [facility] Comprehensive Metabolic Pane tiago 11-19-2022 Albumin [Mass/Vol] 2.3 g/dL Low 3.5-5.7 [facility] Comment on above: Performed By: #### M Royal, CMP ####[id number] [facility] Albumin/Globulin [Mass ratio] 0.7 {ratio} Normal [facility] Comment on above: Performed By: #### Jayesh Paige, CMP ####[id number] [facility] ALP [Catalytic activity/Vol] 139 U/L High 34-104 [facility] Comment on above: Performed By: #### Jayesh Paige, CMP ####[id number] [facility] ALT [Catalytic activity/Vol] 59 U/L High 7-52 [facility] Comment on above: Performed By: #### M Royal, CMP ####[id number] [facility] Anion gap [Moles/Vol] 9.2 mmol/L Normal 6.0-15.0 [facility] Comment on above: Performed By: #### M Royal, CMP ####[id number] [facility] AST [Catalytic activity/Vol] 28 U/L Normal 13-39 [facility] Comment on above: Performed By: #### Jayesh Paige, CMP ####[id number] [facility] Bilirubin [Mass/Vol] 0.7 mg/dL Normal 0.3-1.0 [facility] Comment on above: Performed By: #### Jayesh Paige, CMP ####[id number] [facility] Calcium [Mass/Vol] 8.0 mg/dL Low 8.6-10.3 [facility] Comment on above: Performed By: #### Jayesh Paige, CMP ####[id number] [facility] Chloride [Moles/Vol] 99 mmol/L Normal 98-107 [facility] Comment on above: Performed By: #### Jayesh Paige, CMP ####[id number] [facility] CO2 [Moles/Vol] 34.0 mmol/L High 21.0-31.0 [facility] Comment on above: Performed By: #### Jayesh Paige, CMP ####[phone] [facility] Creatinine [Mass/Vol] 0.38 mg/dL Low 0.70-1.30 [facility] Comment on above: Performed By: #### Jayesh Paige, CMP ####[phone] [facility] Creatinine Clr Calc Pharmacy 284.27 [facility] Comment on above: Performed By: #### Jayesh Paige, CMP ####[phone] [facility] GFR/1.73 sq M.predicted MDRD (S/P/Bld) [Vol rate/Area] mL/min/{1.73_m2} [facility] Comment on above: Performed By: #### Jayesh Paige, CMP ####[id number] [facility] Globulin (S) [Mass/Vol] 3.5 g/dL Normal [facility] Comment on above: Performed By: #### M G, CMP ####[address] [place] [address] [facility] Glucose [Mass/Vol] 92 mg/dL Normal 70-100 [facility] Comment on above: Result Comment: [facility] Glucose Reference Range is dependent on time and content of last meal. Glucose of more than 200 mg/dL in a nonstressed, ambulatory subject supports the diagnosis of Diabetes Mellitus. ADA recommended reference range Performed By: #### M Royal, CMP ####[address] [place] [address] [facility] Potassium [Moles/Vol] 3.2 mmol/L Low 3.5-5.1 [facility] Comment on above: Performed By: #### Jayesh Paige, CMP ####[address] [place] [address] [facility] Protein [Mass/Vol] 5.8 g/dL Low 6.4-8.9 [facility] Comment on above: Performed By: #### Jayesh Paige, CMP ####[address] [address] [facility] Sodium [Moles/Vol] 139 mmol/L Normal 136-145 [facility] Comment on above: Performed By: #### Jayesh Paige, CMP ####[address] [place] [address] [facility] Urea nitrogen [Mass/Vol] 11 mg/dL Normal 7-25 [facility] Comment on above: Performed By: #### Jayehs G, CMP ####[address] [place] [address] [facility] Magnesiumon 11-19-2022 Magnesium [Mass/Vol] 1.8 mg/dL Low 1.9-2.7 [facility] Comment on above: Result Comment: PERF ORMED BY:[address] [place], [place] [phone] MEDICAL DIRECTORNATI LAUREN M.D. Performed By: #### Jayesh Paige, CMP ####[facility] [place] [address] [facility] Arterial Blood Gason 023 ABG Base Excess 7.9 mmol/L High -3.0-3.0 [facility] Comment on above: Performed By: #### A BG ####Point of Care testing, ABG Frac Inspired O2 40 % [facility] Comment on above: Performed By: #### A BG ####Point of Care testing, ABG Oxygen Content 7.1 mmol/L Normal 6.6-9.7 [facility] Comment on above: Performed By: #### A BG ####Point of Care testing, ABG Oxygen Saturation 95.6 % Normal 95.0-100.0 [facility] Comment on above: Performed By: #### A BG ####Point of Care testing, ABG PCO2 43.5 mm[Hg] Normal 35.0-45.0 [facility] Comment on above: Performed By: #### A BG ####Point of Care testing, ABG PEEP 6 [facility] Comment on above: Performed By: #### A BG ####Point of Care testing, ABG PH 7.49 High 7.35-7.45 [facility] Comment on above: Performed By: #### A BG ####Point of Care testing, ABG PO2 78.1 mm[Hg] Low 80.0-100.0 [facility] Comment on above: Performed By: #### A BG ####Point of Care testing, ABG TV 500 mL [facility] Comment on above: Performed By: #### A BG ####Point of Care testing, CO2 [Moles/Vol] 33.5 mmol/L High 23.0-27.0 [facility] Comment on above: Performed By: #### A BG ####Point of Care testing, HCO3 (Bld) [Moles/Vol] 32.2 mmol/L High 23.0-29.0 [facility] Comment on above: Performed By: #### A BG ####Point of Care testing, Respiratory Critical [facility] Comment on above: Result Comment: Crit ical Value called on: 11/18/2022 at 05:43PERFORMED BY:[address] [place], [place] [phone] MEDICAL DIRECTORNATI LAUREN M.D. Performed By: #### A BG ####Point of Care testing, Set Respiratory Rate 20 [facility] Comment on above: Performed By: #### A BG ####Point of Care testing, VBG Draw Site Right Radial [facility] Comment on above: Performed By: #### A BG ####Point of Care testing, Ventilator Mode AC [facility] Comment on above: Performed By: #### A BG ####Point of Care testing, Comprehensive Metabolic Pane tiago 11-18-2022 Albumin [Mass/Vol] 2.3 g/dL Low 3.5-5.7 [facility] Comment on above: Performed By: #### T RIG, SCAN CBC, MG, CMP ####[facility] [id number] [place] [id number] [facility] Albumin/Globulin [Mass ratio] 0.6 {ratio} [facility] Comment on above: Performed By: #### T RIG, SCAN CBC, MG, CMP ####[facility] [id number] [place] [address] [facility] ALP [Catalytic activity/Vol] 169 U/L High 34-104 [facility] Comment on above: Performed By: #### T RIG, SCAN CBC, MG, CMP ####[facility] [id number] [place] [address] [facility] ALT [Catalytic activity/Vol] 81 U/L High 7-52 [facility] Comment on above: Performed By: #### T RIG, SCAN CBC, MG, CMP ####[facility] [id number] [place] [address] [facility] Anion gap [Moles/Vol] 8.2 mmol/L Normal 6.0-15.0 [facility] Comment on above: Performed By: #### T RIG, SCAN CBC, MG, CMP ####[facility] [id number] [place] [address] [facility] AST [Catalytic activity/Vol] 53 U/L High 13-39 [facility] Comment on above: Performed By: #### T RIG, SCAN CBC, MG, CMP ####[facility] [id number] [place] [address] [facility] Bilirubin [Mass/Vol] 0.5 mg/dL Normal 0.3-1.0 [facility] Comment on above: Performed By: #### T RIG, SCAN CBC, MG, CMP ####[facility] [id number] [place] [address] [facility] Calcium [Mass/Vol] 7.9 mg/dL Low 8.6-10.3 [facility] Comment on above: Performed By: #### T RIG, SCAN CBC, MG, CMP ####[id number] [facility] Chloride [Moles/Vol] 95 mmol/L Low 98-107 [facility] Comment on above: Performed By: #### T RIG, SCAN CBC, MG, CMP ####[address] [place] [address] [facility] CO2 [Moles/Vol] 34.3 mmol/L High 21.0-31.0 [facility] Comment on above: Performed By: #### T RIG, SCAN CBC, MG, CMP ####[id number] [facility] Creatinine [Mass/Vol] 0.39 mg/dL Low 0.70-1.30 [facility] Comment on above: Performed By: #### T RIG, SCAN CBC, MG, CMP ####[address] [place] [address] [facility] Creatinine Clr Calc Pharmacy 276.98 Normal [facility] Comment on above: Performed By: #### T RIG, SCAN CBC, MG, CMP ####[facility] [id number] [place] [address] [facility] GFR/1.73 sq M.predicted MDRD (S/P/Bld) [Vol rate/Area] mL/min/{1.73_m2} Normal [facility] Comment on above: Performed By: #### T RIG, SCAN CBC, MG, CMP ####[id number] [facility] Globulin (S) [Mass/Vol] 3.6 g/dL Normal [facility] Comment on above: Performed By: #### T RIG, SCAN CBC, MG, CMP ####[address] Glucose [Mass/Vol] 115 mg/dL High 70-100 [facility] Comment on above: Result Comment: [facility] Glucose Reference Range is dependent on time and content of last meal. Glucose of more than 200 mg/dL in a nonstressed, ambulatory subject supports the diagnosis of Diabetes Mellitus. ADA recommended reference range Performed By: #### T RIG, SCAN CBC, MG, CMP ####[address] Potassium [Moles/Vol] 3.5 mmol/L Normal 3.5-5.1 [facility] Comment on above: Performed By: #### T RIG, SCAN CBC, MG, CMP ####[id number] [facility] Protein [Mass/Vol] 5.9 g/dL Low 6.4-8.9 [facility] Comment on above: Performed By: #### T RIG, SCAN CBC, MG, CMP ####[id number] [facility] Sodium [Moles/Vol] 134 mmol/L Low 136-145 [facility] Comment on above: Performed By: #### T RIG, SCAN CBC, MG, CMP ####[id number] [facility] Urea nitrogen [Mass/Vol] 15 mg/dL Normal 7-25 [facility] Comment on above: Performed By: #### T RIG, SCAN CBC, MG, CMP ####[id number] [place] Glucose Glucometer (BldC) [M ass/Vol]Ordered By: Shant Villegas on 11-18-2022 Glucose [Mass/Vol] 120 mg/dL [facility] Comment on above: Random Glucose Refer ence Range is dependent on time and content of last meal. Glucose of more than 200 mg/dL in a nonstressed, ambulatory subject supports the diagnosis of Diabetes Mellitus. Glucose Poct Glucometerson 0 11-18-2022 Glucose [Mass/Vol] 120 mg/dL Normal [facility] Comment on above: Result Comment: [facility] Glucose Reference Range is dependent on time and content of last meal. Glucose of more than 200 mg/dL in a nonstressed, ambulatory subject supports the diagnosis of Diabetes Mellitus.PERFORMED BY:[facility] [place], [place] [phone] MEDICAL DIRECTORNATI LAUREN M.D. Performed By: #### G LULS ####Point of Care testing, Hypochromia LM Ql (Bld)Order ed By: Evi Gay on 11-18-2022 Hypochromia Ql (Bld) Moderate [facility] Laboratory - Chemistry and C hemistry - challengeOrdered By: Shant Villegas on 11-18-2022 CO2 [Moles/Vol] 33.5 mmol/L 23.0-27.0 [facility] HCO3 (Bld) [Moles/Vol] 32.2 mmol/L 23.0-29.0 F [facility] Magnesiumon 11-18-2022 Magnesium [Mass/Vol] 1.9 mg/dL Normal 1.9-2.7 [facility] Comment on above: Performed By: #### T RIG, SCAN CBC, MG, CMP ####[facility] [id number] [place] [address] [facility] No Panel InformationOrdered By: Shant Villegas on 11-18-2022 Arterial Blood Base Excess 7.9 mmol/L -3.0-3.0 [facility] Arterial Blood Oxygen Content 7.1 mmol/L 6.6-9.7 [facility] Arterial Blood Oxygen Saturation 95.6 % 95.0-100.0 [facility] Arterial Blood Partial Pressure CO2 43.5 mm[Hg] 35.0-45.0 [facility] Arterial Blood Partial Pressure O2 78.1 mm[Hg] 80.0-100.0 [facility] Arterial Blood pH 7.49 7.35-7.45 [facility] Blood Gas Critical Value See comment [facility] Comment on above: Critical Value abdi d on: 11/18/2022 at 05:43 Blood Gas PEEP 6 cmH2O [facility] Blood Gas Sample Site Right radial F [facility] Blood Gas Set Respiration Rate 20 [facility] Blood Gas Tidal Volume 500 mL Fi [facility] Blood Gas Ventilator Mode Ac [facility] FiO2 40 % [facility] Platelet adequacy [Presence] in Blood by Light microscopyOrdered By: Evi Gay on 11-18-2022 Platelets LM Ql (Bld) Normal Normal [facility] Platelet morphology finding [Identifier] in BloodOrdered By: Evi Gay on 11-18-2022 Platelet morphology finding Nom (Bld) Normal Normal [facility] Poikilocytosis [Presence] in Blood by Light microscopyOrdered By: Evi Gay on 11-18-2022 Poikilocytosis LM Ql (Bld) Slight [facility] Polychromasia [Presence] in Blood by Light microscopyOrdered By: Evi Gay on 11-18-2022 Polychromasia LM Ql (Bld) Moderate [facility] RBC morphologyOrdered By: Antoni Gay on 11-18-2022 RBC morphology finding Nom (Bld) N/A [facility] Scan and CBCon 11-18-2022 Basophils (Bld) [#/Vol] 0.1 10*3/uL Normal 0.0-0.2 [facility] Comment on above: Performed By: #### T RIG, SCAN CBC, MG, CMP ####[facility] [id number] Basophils/100 WBC (Bld) 0.7 % Normal . [facility] Comment on above: Performed By: #### T RIG, SCAN CBC, MG, CMP ####[facility] [id number] Eosinophils (Bld) [#/Vol] 0.2 10*3/uL Normal 0.0-0.45 [facility] Comment on above: Performed By: #### T RIG, SCAN CBC, MG, CMP ####[address] Eosinophils/100 WBC (Bld) 1.6 % Normal . [facility] Comment on above: Performed By: #### T RIG, SCAN CBC, MG, CMP ####[address] Erythrocyte distribution width (RBC) [Ratio] 13.8 % Normal 12.0-14.8 [facility] Comment on above: Performed By: #### T RIG, SCAN CBC, MG, CMP ####[address] Hematocrit (Bld) [Volume fraction] 25.8 % Low 38.8-50.0 [facility] Comment on above: Performed By: #### T RIG, SCAN CBC, MG, CMP ####[address] Hemoglobin (Bld) [Mass/Vol] 8.6 g/dL Low 13.0-17.0 [facility] Comment on above: Performed By: #### T RIG, SCAN CBC, MG, CMP ####[address] Hypochromasia Moderate Normal [facility] Comment on above: Performed By: #### T RIG, SCAN CBC, MG, CMP ####[address] Lymphocytes (Bld) [#/Vol] 1.6 10*3/uL Normal 1.00-4.8 [facility] Comment on above: Performed By: #### T RIG, SCAN CBC, MG, CMP ####[address] Lymphocytes/100 WBC (Bld) 11.6 % Normal . [facility] Comment on above: Performed By: #### T RIG, SCAN CBC, MG, CMP ####[address] MCH (RBC) [Entitic mass] 29.6 pg Normal 27.5-35.2 [facility] Comment on above: Performed By: #### T RIG, SCAN CBC, MG, CMP ####[address] MCV (RBC) [Entitic vol] 89.0 fL Normal 83.5-101 [facility] Comment on above: Performed By: #### T RIG, SCAN CBC, MG, CMP ####[address] Mean Corpuscular HGB Conc 33.3 g/dL Normal 32.5-35.6 [facility] Comment on above: Performed By: #### T RIG, SCAN CBC, MG, CMP ####[address] Monocytes (Bld) [#/Vol] 1.7 10*3/uL High 0.0-0.8 [facility] Comment on above: Performed By: #### T RIG, SCAN CBC, MG, CMP ####[address] Monocytes/100 WBC (Bld) 12.5 % Normal . [facility] Comment on above: Performed By: #### T RIG, SCAN CBC, MG, CMP ####[address] Neutrophils (Bld) [#/Vol] 10.1 10*3/uL High 1.8-7.7 [facility] Comment on above: Performed By: #### T RIG, SCAN CBC, MG, CMP ####[address] Neutrophils/100 WBC (Bld) 73.6 % Normal . [facility] Comment on above: Performed By: #### T RIG, SCAN CBC, MG, CMP ####[address] NRBC% 0.1 /100{WBC} Normal 0-0.5 [facility] Comment on above: Performed By: #### T RIG, SCAN CBC, MG, CMP ####[address] Platelet Estimate Normal Normal Normal [facility] Comment on above: Performed By: #### T RIG, SCAN CBC, MG, CMP ####[address] Platelet mean volume (Bld) [Entitic vol] 7.7 fL Normal 6.6-10.1 [facility] Comment on above: Performed By: #### T RIG, SCAN CBC, MG, CMP ####[address] Platelet Morphology Normal Normal Normal [facility] Comment on above: Result Comment: PERF ORMED BY:[address] [place], [place] [phone] MEDICAL DIRECTORNATI LAUREN M.D. Performed By: #### T RIG, SCAN CBC, MG, CMP ####[address] Platelets (Bld) [#/Vol] 418 10*3/uL Normal 150-450 [facility] Comment on above: Performed By: #### T RIG, SCAN CBC, MG, CMP ####[address] Poikilocytosis Slight Normal [facility] Comment on above: Performed By: #### T RIG, SCAN CBC, MG, CMP ####[address] Polychromasia Moderate Normal [facility] Comment on above: Performed By: #### T RIG, SCAN CBC, MG, CMP ####[address] RBC (Bld) [#/Vol] 2.90 10*6/uL Low 3.90-5.60 [facility] Comment on above: Performed By: #### T RIG, SCAN CBC, MG, CMP ####[address] [place] [address] [facility] WBC (Bld) [#/Vol] 13.7 10*3/uL High 4.1-10.5 [facility] Comment on above: Performed By: #### T RIG, SCAN CBC, MG, CMP ####[address] [place] [id number] [facility] Triglyceride [Mass/volume] i n Serum or PlasmaOrdered By: Evi Gay on 11-18-2022 Triglyceride [Mass/Vol] 146 mg/dL 0-149 [facility] Comment on above: TRIG ATP III CLASSIF ICATIONTRIG less than 150 mg/dL NormalTRIG 150-199 mg/dL Borderline highTRIG 200-500 mg/dL High TRIG greater than 500 mg/dL Very highStandard traceable to the Center for Disease Conrtrol and Prevention (CDC) test method. Triglycerideson 11-18-2022 Triglyceride [Mass/Vol] 146 mg/dL Normal 0-149 [facility] Comment on above: Result Comment: TRIG ATP III CLASSIFICATION TRIG less than 150 mg/dL Normal TRIG 150-199 mg/dL Borderline high TRIG 200-500 mg/dL High TRIG greater than 500 mg/dL Very high Standard traceable to the Center for Disease Conrtrol and Prevention (CDC) test method.PERFORMED BY:[address] [place], [place] [phone] MEDICAL DIRECTORNATI LAUREN M.D. Performed By: #### T RIG, SCAN CBC, MG, CMP ####[address] [place] [address] [facility] XR chest 1V portableon 11-18 XR chest 1V portable Normal [facility] Aerobic Cultureon 11-17-2022 Aerobic Culture Normal [facility] Comment on above: Performed By: #### G S, AERC ####[address] [place] [address] [facility] Amylaseon 11-17-2022 Amylase [Catalytic activity/Vol] 16 U/L Low 29-103 [facility] Comment on above: Order Comment: Comme nt please run off blood drawn this morning Performed By: #### L IPASE, CATRACHITO, HEPATIC ####[facility] [address] [place] [address] [facility] Amylase [Enzymatic activity/ volume] in Serum or PlasmaOrdered By: Evi Gay on 11-17-2022 Amylase [Catalytic activity/Vol] 16 U/L 29-103 [facility] Arterial Blood Gason 023 ABG Base Excess 9.9 mmol/L High -3.0-3.0 [facility] Comment on above: Performed By: #### A BG ####Point of Care testing, ABG Frac Inspired O2 30 % [facility] Comment on above: Performed By: #### A BG ####Point of Care testing, ABG Oxygen Content 5.9 mmol/L Low 6.6-9.7 [facility] Comment on above: Performed By: #### A BG ####Point of Care testing, ABG Oxygen Saturation 89.2 % Low 95.0-100.0 [facility] Comment on above: Performed By: #### A BG ####Point of Care testing, ABG PCO2 42.2 mm[Hg] Normal 35.0-45.0 [facility] Comment on above: Performed By: #### A BG ####Point of Care testing, ABG PEEP 10 [facility] Comment on above: Performed By: #### A BG ####Point of Care testing, ABG PH 7.52 High 7.35-7.45 [facility] Comment on above: Performed By: #### A BG ####Point of Care testing, ABG PO2 54.5 mm[Hg] Low 80.0-100.0 [facility] Comment on above: Performed By: #### A BG ####Point of Care testing, ABG TV 500 mL [facility] Comment on above: Performed By: #### A BG ####Point of Care testing, CO2 [Moles/Vol] 35.0 mmol/L High 23.0-27.0 [facility] Comment on above: Performed By: #### A BG ####Point of Care testing, HCO3 (Bld) [Moles/Vol] 33.7 mmol/L High 23.0-29.0 [facility] Comment on above: Performed By: #### A BG ####Point of Care testing, Respiratory Critical [facility] Comment on above: Result Comment: Crit ical Value called on: 11/17/2022 at 04:38PERFORMED BY:[facility] [place], [place] [phone] MEDICAL DIRECTORNATI LAUREN M.D. Performed By: #### A BG ####Point of Care testing, Set Respiratory Rate 20 [facility] Comment on above: Performed By: #### A BG ####Point of Care testing, VBG Draw Site Right Radial [facility] Comment on above: Performed By: #### A BG ####Point of Care testing, Ventilator Mode AC [facility] Comment on above: Performed By: #### A BG ####Point of Care testing, Bacteria identified Aer cx N om (Unsp spec)Ordered By: Sanjay Holt on 11-17-2022 [facility]erobic [facility] Bacterial blood cultureOrder ed By: Sanjay Holt on 11-17-2022 Bacteria identified Cx Nom (Bld) NO GROWTH 5 DAYS [facility] Basic Metabolic Panelon 05 Anion gap [Moles/Vol] 9.3 mmol/L Normal 6.0-15.0 [facility] Comment on above: Performed By: #### B MP, CBCNO ####[facility] [address] [place] [address] [place] Calcium [Mass/Vol] 7.8 mg/dL Low 8.6-10.3 [facility] Comment on above: Performed By: #### B MP, CBCNO ####[facility] [address] [place] [address] [place] Chloride [Moles/Vol] 93 mmol/L Low 98-107 [facility] Comment on above: Performed By: #### B YOSEPH, CBCNO ####[facility] [address] [place] [address] [facility] CO2 [Moles/Vol] 33.7 mmol/L High 21.0-31.0 [facility] Comment on above: Performed By: #### B YOSEPH, CBCNO ####[facility] [place] [address] [facility] Creatinine [Mass/Vol] 0.50 mg/dL Low 0.70-1.30 [facility] Comment on above: Performed By: #### B YOSEPH, CBCNO ####[address] [place] [address] [place] Creatinine Clr Calc Pharmacy 217.84 [facility] Comment on above: Result Comment: PERF ORMED BY:[address] [place], [place] [phone] MEDICAL DIRECTORNATI LAUREN M.D. Performed By: #### B YOSEPH, CBCNO ####[address] [place] [address] [facility] GFR/1.73 sq M.predicted MDRD (S/P/Bld) [Vol rate/Area] mL/min/{1.73_m2} [facility] Comment on above: Performed By: #### B YOSEPH, CBCNO ####[address] [place] [address] [facility] Glucose [Mass/Vol] 102 mg/dL High 70-100 [facility] Comment on above: Result Comment: [facility] Glucose Reference Range is dependent on time and content of last meal. Glucose of more than 200 mg/dL in a nonstressed, ambulatory subject supports the diagnosis of Diabetes Mellitus. ADA recommended reference range Performed By: #### B YOSEPH, CBCNO ####[facility] [id number] [place] [address] [facility] Potassium [Moles/Vol] 4.0 mmol/L Normal 3.5-5.1 [facility] Comment on above: Performed By: #### B YOSEPH, CBCNO ####[facility] [place] [id number] [facility] Sodium [Moles/Vol] 132 mmol/L Low 136-145 [facility] Comment on above: Performed By: #### B YOSEPH CBCNO ####[facility] [place] [id number] [facility] Urea nitrogen [Mass/Vol] 23 mg/dL Normal 7-25 [facility] Comment on above: Performed By: #### B YOSEPH CBCNO ####[facility] [place] [id number] [facility] Bilirubin.direct [Mass/volum e] in Serum or PlasmaOrdered By: Evi Gay on 11-17-2022 Bilirubin.direct [Mass/Vol] 0.30 mg/dL 0.03-0.18 [facility] Blood Cultureon 11-17-2022 Bacteria identified Cx Nom (Bld) Comment suctioned NO GROWTH 5 DAYS PERFORMED BY: [facility] [address] [place] [address] PATHOLOGIST NURSERY NURSE NATI LAUREN M.D. [facility] Comment on above: Performed By: #### C UBLD ####[id number] [facility] Creatine Kinaseon 11-17-2022 CK [Catalytic activity/Vol] 70 U/L Normal [facility] Comment on above: Order Comment: Comme nt has CVC LINE DRAW Performed By: #### H S TROP, CK ####[id number] [facility] Creatine kinase [Enzymatic a ctivity/volume] in Serum or PlasmaOrdered By: Evi Gay on 11-17-2022 CK [Catalytic activity/Vol] 70 U/L 30- [facility] ECG 12 lead ECGon 11-17-2022 ECG 12 lead ECG Normal [facility] ECG 12 lead ECG Normal [facility] ECH echo transthoracicon ECH echo transthoracic Normal Fi [facility] Glucose Poct Glucometerson 0 11-17-2022 Commemt1 Glu2: Cleaned Meter Normal [facility] Comment on above: Result Comment: PERF ORMED BY:[facility] [place], [place] [phone] MEDICAL DIRECTORNATI LAUREN M.D. Performed By: #### G LUBETY ####Point of Care testing, Glucose [Mass/Vol] 106 mg/dL Normal [facility] Comment on above: Result Comment: [facility] Glucose Reference Range is dependent on time [...] Blood Cells Rare Epithelial Cells PERFORMED BY: [facility] [address] [place] [address] PATHOLOGIST NURSERY NURSE NATI LAUREN M.D. Normal [facility] Comment on above: Performed By: #### G S, AERC ####[address] [address] [facility] Gram stain for investigation of transfusion reactionOrdered By: Sanjay Holt on 11-17-2022 Microscopic observation Gram stain Nom (Unsp spec) [facility] Hemogram CBC Without Diffon 11-17-2022 Erythrocyte distribution width (RBC) [Ratio] 13.7 % Normal 12.0-14.8 [facility] Comment on above: Performed By: #### B MP, CBCNO ####[facility] [address] [place] [address] [place] Hematocrit (Bld) [Volume fraction] 28.0 % Low 38.8-50.0 [facility] Comment on above: Performed By: #### B MP, CBCNO ####[facility] [address] [place] [address] [facility] Hemoglobin (Bld) [Mass/Vol] 9.1 g/dL Low 13.0-17.0 [facility] Comment on above: Performed By: #### B MP, CBCNO ####[address] [place] [address] [facility] MCH (RBC) [Entitic mass] 29.1 pg Normal 27.5-35.2 [facility] Comment on above: Performed By: #### B YOSEPH CBCNO ####[address] [place] [address] [facility] MCV (RBC) [Entitic vol] 89.7 fL Normal 83.5-101 [facility] Comment on above: Performed By: #### B YOSEPH CBCNO ####[address] [place] [address] [facility] Mean Corpuscular HGB Conc 32.4 g/dL Low 32.5-35.6 [facility] Comment on above: Performed By: #### B YOSEPH CBCNO ####[id number] [facility] Platelet mean volume (Bld) [Entitic vol] 7.7 fL Normal 6.6-10.1 [facility] Comment on above: Result Comment: PERF ORMED BY:[address] [place], [place] [phone] MEDICAL DIRECTORNATI LAUREN M.D. Performed By: #### B YOSEPH CBCNO ####[address] [address] [facility] Platelets (Bld) [#/Vol] 423 10*3/uL Normal 150-450 [facility] Comment on above: Performed By: #### B YOSEPH CBCNO ####[id number] [facility] RBC (Bld) [#/Vol] 3.12 10*6/uL Low 3.90-5.60 [facility] Comment on above: Performed By: #### B YOSEPH CBCNO ####[id number] [facility] WBC (Bld) [#/Vol] 20.5 10*3/uL High 4.1-10.5 [facility] Comment on above: Performed By: #### B YOSEPH CBCNO ####[facility] [place] [address] [facility] Hepatic Panelon 11-17-2022 Albumin [Mass/Vol] 2.4 g/dL Low 3.5-5.7 [facility] Comment on above: Order Comment: Comme nt please run off blood drawn this morning Performed By: #### L IPASE, CATRACHITO, HEPATIC ####[facility] [place] [address] [facility] Albumin/Globulin [Mass ratio] 0.7 {ratio} Normal [facility] Comment on above: Order Comment: Comme nt please run off blood drawn this morning Performed By: #### L IPASE, CATRACHITO, HEPATIC ####[address] [place] [address] [facility] ALP [Catalytic activity/Vol] 170 U/L High 34-104 [facility] Comment on above: Order Comment: Comme nt please run off blood drawn this morning Performed By: #### L IPASE, CATRACHITO, HEPATIC ####[address] [place] [address] [facility] ALT [Catalytic activity/Vol] 64 U/L High 7-52 [facility] Comment on above: Order Comment: Comme nt please run off blood drawn this morning Performed By: #### L IPASE, CATRACHITO, HEPATIC ####[facility] [place] [address] [facility] AST [Catalytic activity/Vol] 64 U/L High 13-39 [facility] Comment on above: Order Comment: Comme nt please run off blood drawn this morning Performed By: #### L IPASE, CATRACHITO, HEPATIC ####[address] [place] [address] [facility] Bilirubin [Mass/Vol] 0.6 mg/dL Normal 0.3-1.0 [facility] Comment on above: Order Comment: Comme nt please run off blood drawn this morning Performed By: #### L IPASE, CATRACHITO, HEPATIC ####[address] [place] [address] [place] Bilirubin,Indirect 0.3 mg/dL Normal [facility] Comment on above: Order Comment: Comme nt please run off blood drawn this morning Performed By: #### L IPASE, CATRACHITO, HEPATIC ####[id number] [facility] Bilirubin.indirect [Mass/Vol] 0.30 mg/dL High 0.03-0.18 [facility] Comment on above: Order Comment: Comme nt please run off blood drawn this morning Performed By: #### L IPASE, CATRACHITO, HEPATIC ####[id number] [facility] Globulin (S) [Mass/Vol] 3.6 g/dL Normal [facility] Comment on above: Order Comment: Comme nt please run off blood drawn this morning Performed By: #### L IPASE, CATRACHITO, HEPATIC ####[id number] [facility] Protein [Mass/Vol] 6.0 g/dL Low 6.4-8.9 [facility] Comment on above: Order Comment: Comme nt please run off blood drawn this morning Performed By: #### L IPASE, CATRACHITO, HEPATIC ####[id number] [facility] Lipaseon 11-17-2022 Lipase [Catalytic activity/Vol] 12.0 U/L Normal 11.0-82.0 [facility] Comment on above: Order Comment: Comme nt please run off blood drawn this morning Result Comment: PERF ORMED BY:[address] [place], [place] [phone] MEDICAL DIRECTORNATI LAUREN M.D. Performed By: #### L IPASE, CATRACHITO, HEPATIC ####[id number] [facility] Lipase [Enzymatic activity/v olume] in Serum or PlasmaOrdered By: Evi Gay on 11-17-2022 Lipase [Catalytic activity/Vol] 12.0 U/L 11.0-82.0 [facility] Magnesiumon 11-17-2022 Magnesium [Mass/Vol] 1.9 mg/dL Normal 1.9-2.7 [facility] Comment on above: Result Comment: PERF ORMED BY:[address] [place], [place] [phone] MEDICAL DIRECTORNATI LAUREN M.D. Performed By: #### M G ####[address] [address] [facility] No Panel InformationOrdered By: Shant Villegas on 11-17-2022 Bedside Glucose Comment Glu2: cleaned meter [facility] Serum or plasma non-glucuron idated bilirubin measurement (mass/volume)Ordered By: Evi Gay on 11-17-2022 Bilirubin.indirect [Mass/Vol] 0.3 mg/dL [facility] Thyroid Stimulating Hormoneo n 11-17-2022 TSH Qn 9.27 m[IU]/L High 0.45-5.33 [facility] Comment on above: Order Comment: Comme nt please run off blood drawn today Result Comment: PERF ORMED BY:[address] [place], [place] [phone] MEDICAL DIRECTORNATI LAUREN M.D. Performed By: #### T SH3 ####[address] [address] [facility] Thyrotropin [Units/volume] i n Serum or PlasmaOrdered By: Evi Gay on 11-17-2022 TSH Qn 9.27 m[IU]/L 0.45-5.33 [facility] Troponin I High Sensitivityo n 11-17-2022 Troponin I High Sensitivity 24.1 pg/mL High 0.0-20.0 [facility] Comment on above: Order Comment: Comme nt has CVC LINE DRAW Result Comment: PERF ORMED BY:[address] [place], [place] [phone] MEDICAL ALEKSANDAR LAUREN M.D. Performed By: #### H S TROP, CK ####[address] [address] [facility] Troponin I.cardiac [Mass/vol ume] in Serum or Plasma by Detection limit <= 0.01 ng/Ordered By: Evi Gay on 11-17-2022 Troponin I.cardiac DL <= 0.01 ng/mL [Mass/Vol] 24.1 pg/mL 0.0-20.0 [facility] XR chest 1V portableon 11-17 XR chest 1V portable Normal [facility] Arterial Blood Gason 023 ABG Base Excess 10.9 mmol/L High -3.0-3.0 [facility] Comment on above: Performed By: #### A BG ####Point of Care testing, ABG Frac Inspired O2 50 % [facility] Comment on above: Performed By: #### A BG ####Point of Care testing, ABG Oxygen Content 6.1 mmol/L Low 6.6-9.7 [facility] Comment on above: Performed By: #### A BG ####Point of Care testing, ABG Oxygen Saturation 94.7 % Low 95.0-100.0 [facility] Comment on above: Performed By: #### A BG ####Point of Care testing, ABG PCO2 43.6 mm[Hg] Normal 35.0-45.0 [facility] Comment on above: Performed By: #### A BG ####Point of Care testing, ABG PEEP 10 [facility] Comment on above: Performed By: #### A BG ####Point of Care testing, ABG PH 7.52 High 7.35-7.45 [facility] Comment on above: Performed By: #### A BG ####Point of Care testing, ABG PO2 71.3 mm[Hg] Low 80.0-100.0 [facility] Comment on above: Performed By: #### A BG ####Point of Care testing, ABG TV 500 mL [facility] Comment on above: Performed By: #### A BG ####Point of Care testing, CO2 [Moles/Vol] 36.1 mmol/L High 23.0-27.0 [facility] Comment on above: Performed By: #### A BG ####Point of Care testing, HCO3 (Bld) [Moles/Vol] 34.8 mmol/L High 23.0-29.0 [facility] Comment on above: Performed By: #### A BG ####Point of Care testing, Respiratory Critical [facility] Comment on above: Result Comment: Crit ical Value called on: 11/16/2022 at 04:35PERFORMED BY:[facility] [place], [place] [phone] MEDICAL DIRECTORNATI LAUREN M.D. Performed By: #### A BG ####Point of Care testing, Set Respiratory Rate 20 [facility] Comment on above: Performed By: #### A BG ####Point of Care testing, VBG Draw Site Left Radial [facility] Comment on above: Performed By: #### A BG ####Point of Care testing, Ventilator Mode AC [facility] Comment on above: Performed By: #### A BG ####Point of Care testing, Automated erythrocytes count in urine sediment (number/area)Ordered By: Sanjay Holt on 11-16-2022 RBC Auto (Urine sed) [#/Area] 50-100 [HPF] 0-4 [facility] Automated leukocytes count i n urine sediment (number/area)Ordered By: Sanjay Holt on 11-16-2022 WBC Auto (Urine sed) [#/Area] 3-4 [HPF] 0-4 [facility] Basic Metabolic Panelon 11-07 Anion gap [Moles/Vol] 8.6 mmol/L Normal 6.0-15.0 [facility] Comment on above: Performed By: #### B MP, TRIG ####[facility] [id number] [place] [address] [facility] Calcium [Mass/Vol] 7.5 mg/dL Low 8.6-10.3 [facility] Comment on above: Performed By: #### B MP, TRIG ####[facility] [address] [place] [address] [facility] Chloride [Moles/Vol] 90 mmol/L Low 98-107 [facility] Comment on above: Performed By: #### B MP, TRIG ####[facility] [place] [id number] [facility] CO2 [Moles/Vol] 36.7 mmol/L High 21.0-31.0 [facility] Comment on above: Performed By: #### B MP, TRIG ####[address] [place] [id number] [facility] Creatinine [Mass/Vol] 0.65 mg/dL Low 0.70-1.30 [facility] Comment on above: Performed By: #### B MP, TRIG ####[address] [place] [address] [place] Creatinine Clr Calc Pharmacy 167.57 [facility] Comment on above: Performed By: #### B MP, TRIG ####[address] [place] [id number] [facility] GFR/1.73 sq M.predicted MDRD (S/P/Bld) [Vol rate/Area] mL/min/{1.73_m2} [facility] Comment on above: Performed By: #### B MP, TRIG ####[address] [place] [id number] [facility] Glucose [Mass/Vol] 106 mg/dL High 70-100 [facility] Comment on above: Result Comment: [facility] Glucose Reference Range is dependent on time and content of last meal. Glucose of more than 200 mg/dL in a nonstressed, ambulatory subject supports the diagnosis of Diabetes Mellitus. ADA recommended reference range Performed By: #### B MP, TRIG ####[facility] [place] [id number] [place] Potassium [Moles/Vol] 4.3 mmol/L Normal 3.5-5.1 [facility] Comment on above: Performed By: #### B MP, TRIG ####[facility] [place] [id number] [facility] Sodium [Moles/Vol] 131 mmol/L Low 136-145 [facility] Comment on above: Performed By: #### B MP, TRIG ####[address] [place] [address] [facility] Urea nitrogen [Mass/Vol] 32 mg/dL High 7 [facility] Comment on above: Performed By: #### B MP, TRIG ####[address] [address] [facility] Bilirubin Test strip Ql (U)O rdered By: Sanjay Holt on 11-16-2022 Bilirubin Ql (U) Negative Negative [facility] Blood Cultureon 11-16-2022 Bacteria identified Cx Nom (Bld) NO GROWTH 5 DAYS PERFORMED BY: [place] [address] PATHOLOGIST NURSERY NURSE NATI LAUREN M.D. [facility] Comment on above: Performed By: #### C UBLD ####[address] [address] [facility] Bacteria identified Cx Nom (Bld) NO GROWTH 5 DAYS PERFORMED BY: [place] [address] PATHOLOGIST NURSERY NURSE NATI LAUREN M.D. [facility] Comment on above: Performed By: #### C UBLD ####[place] [id number] [facility] CT angio chest PE protocolon 11-16-2022 CT angio chest PE protocol Normal [facility] Color Auto (U)Ordered By: Stephanie Holt on 11-16-2022 Color (U) Dark yellow Yellow [facility] Dipstick and Microscopicon 0 11-16-2022 Appearance (U) Clear Normal Clear [facility] Comment on above: Order Comment: Name Collection Type:: Jones Catheter Performed By: #### C UU, ADDONUAPLUS ####[address] [address] [facility] Bacteria,Urine None Seen Normal None Seen [facility] Comment on above: Order Comment: Name Collection Type:: Jones Catheter Performed By: #### C UU, ADDONUAPLUS ####[address] [place] [address] [facility] Bilirubin,Urine Negative Normal Negative [facility] Comment on above: Order Comment: Name Collection Type:: Jones Catheter Performed By: #### C UU, ADDONUAPLUS ####[address] [address] [facility] Color (U) Dark Yellow Critically abnormal Yellow [facility] Comment on above: Order Comment: Name Collection Type:: Jones Catheter Performed By: #### C UU, ADDONUAPLUS ####[address] [address] [facility] Glucose Ql (U) Normal Normal Normal [facility] Comment on above: Order Comment: Name Collection Type:: Jones Catheter Performed By: #### C UU, ADDONUAPLUS ####[address] [address] [facility] Hyaline Casts,Urine 0-8 Normal 0-8 [facility] Comment on above: Order Comment: Name Collection Type:: Jones Catheter Result Comment: PERF ORMED BY:[address] [place]fred[place], [place] [phone] MEDICAL DIRECTORNATI LAUREN M.D. Performed By: #### C UU, ADDONUAPLUS ####[address] [address] [facility] Ketones Ql (U) Negative Normal Negative [facility] Comment on above: Order Comment: Name Collection Type:: Jones Catheter Performed By: #### C UU, ADDONUAPLUS ####[address] [address] [facility] Leukocyte esterase Test strip Ql (U) 1+ High Negative [facility] Comment on above: Order Comment: Name Collection Type:: Jones Catheter Performed By: #### C UU, ADDONUAPLUS ####[address] [address] [facility] Nitrite,Urine Negative Normal Negative [facility] Comment on above: Order Comment: Name Collection Type:: Jones Catheter Performed By: #### C UU, ADDONUAPLUS ####[address] [address] [facility] Occult Blood,Urine 1+ High Negative [facility] Comment on above: Order Comment: Name Collection Type:: Jones Catheter Result Comment: PERF ORMED BY:[address] [place], [place] [phone] MEDICAL DIRECTORNATI LAUREN M.D. Performed By: #### C UU, ADDONUAPLUS ####[address] [address] [facility] pH (U) 5.5 [pH] Normal 5.0-9.0 [facility] Comment on above: Order Comment: Name Collection Type:: Jones Catheter Performed By: #### C UU, ADDONUAPLUS ####[address] [address] [facility] Protein,Urine Trace High Negative [facility] Comment on above: Order Comment: Name Collection Type:: Jones Catheter Performed By: #### C UU, ADDONUAPLUS ####[address] [address] [facility] RBC,Urine 50-100 High 0-4 [facility] Comment on above: Order Comment: Name Collection Type:: Jones Catheter Performed By: #### C UU, ADDONUAPLUS ####[address] [address] [facility] Specificy Cyrus,Urine 1.022 Normal 1.001-1.03 0 [facility] Comment on above: Order Comment: Name Collection Type:: Jones Catheter Performed By: #### C UU, ADDONUAPLUS ####[address] [address] [facility] Squamous Epithelial Cell,Urine None Seen Normal 0-2 [facility] Comment on above: Order Comment: Name Collection Type:: Jones Catheter Performed By: #### C UU, ADDONUAPLUS ####[address] [address] [facility] Urobilinogen,Urine Normal Normal Normal [facility] Comment on above: Order Comment: Name Collection Type:: Jones Catheter Performed By: #### C UU, ADDONUAPLUS ####[facility] [id number] [place] [address] [facility] WBC,Urine 3-4 Normal 0-4 [facility] Comment on above: Order Comment: Name Collection Type:: Jones Catheter Performed By: #### C UU, ADDONUAPLUS ####[facility] [place] [address] [facility] Glucose Poct Glucometerson 0 11-16-2022 Commemt1 Glu2: Cleaned Meter Normal [facility] Comment on above: Result Comment: PERF ORMED BY:[place] [address] [place], [place] [phone] MEDICAL DIRECTORNATI LAUREN M.D. Performed By: #### G LULS ####Point of Care testing, Glucose [Mass/Vol] 101 mg/dL Normal [facility] Comment on above: Result Comment: [facility] Glucose Reference Range is dependent on time and content of last meal. Glucose of more than 200 mg/dL in a nonstressed, ambulatory subject supports the diagnosis of Diabetes Mellitus. Performed By: #### G LULS ####Point of Care testing, Ketones Auto test strip (U) [Mass/Vol]Ordered By: Sanjay Holt on 11-16-2022 Ketones (U) [Mass/Vol] Negative Negative [facility] - UrinalysisOrder ed By: Sanjay Holt on 11-16-2022 Hyaline casts LM Ql (Urine sed) 0-8 [LPF] 0-8 [facility] Nitrite Test strip Ql (U)Ord ered By: Sanjay Holt on 11-16-2022 Nitrite Ql (U) Negative Negative [facility] Protein Auto test strip (U) [Mass/Vol]Ordered By: Sanjay Holt on 11-16-2022 Protein (U) [Mass/Vol] Trace mg/dL Negative [facility] Red blood cell stomatocyte d etectionOrdered By: Reginald Arroyo on 11-16-2022 Stomatocytes LM Ql (Bld) Slight [facility] Scan and CBCon 11-16-2022 Basophils (Bld) [#/Vol] 0.2 10*3/uL Normal 0.0-0.2 [facility] Comment on above: Performed By: #### S CAN CBC ####[address] Basophils/100 WBC (Bld) 0.7 % Normal . [facility] Comment on above: Performed By: #### S CAN CBC ####[address] Eosinophils (Bld) [#/Vol] 0.2 10*3/uL Normal 0.0-0.45 [facility] Comment on above: Performed By: #### S CAN CBC ####[address] Eosinophils/100 WBC (Bld) 0.8 % Normal . [facility] Comment on above: Performed By: #### S CAN CBC ####[address] Erythrocyte distribution width (RBC) [Ratio] 13.7 % Normal 12.0-14.8 [facility] Comment on above: Performed By: #### S CAN CBC ####[address] Hematocrit (Bld) [Volume fraction] 26.4 % Low 38.8-50.0 [facility] Comment on above: Performed By: #### S CAN CBC ####[address] Hemoglobin (Bld) [Mass/Vol] 8.6 g/dL Low 13.0-17.0 [facility] Comment on above: Performed By: #### S CAN CBC ####[address] Hypochromasia Moderate Normal [facility] Comment on above: Performed By: #### S CAN CBC ####[address] Lymphocytes (Bld) [#/Vol] 1.9 10*3/uL Normal 1.00-4.8 [facility] Comment on above: Performed By: #### S CAN CBC ####[address] Lymphocytes/100 WBC (Bld) 7.8 % Normal . [facility] Comment on above: Performed By: #### S CAN CBC ####[address] MCH (RBC) [Entitic mass] 29.0 pg Normal 27.5-35.2 [facility] Comment on above: Performed By: #### S CAN CBC ####[address] MCV (RBC) [Entitic vol] 89.5 fL Normal 83.5-101 [facility] Comment on above: Performed By: #### S CAN CBC ####[address] Mean Corpuscular HGB Conc 32.4 g/dL Low 32.5-35.6 [facility] Comment on above: Performed By: #### S CAN CBC ####[address] Monocytes (Bld) [#/Vol] 2.3 10*3/uL High 0.0-0.8 [facility] Comment on above: Performed By: #### S CAN CBC ####[address] Monocytes/100 WBC (Bld) 9.4 % Normal . [facility] Comment on above: Performed By: #### S CAN CBC ####[address] Neutrophils (Bld) [#/Vol] 19.7 10*3/uL High 1.8-7.7 [facility] Comment on above: Performed By: #### S CAN CBC ####[address] Neutrophils/100 WBC (Bld) 81.3 % Normal . [facility] Comment on above: Performed By: #### S CAN CBC ####[address] [address] [facility] NRBC% 0.0 /100{WBC} Normal 0-0.5 [facility] Comment on above: Performed By: #### S CAN CBC ####[address] [address] [facility] Platelet Estimate Normal Normal Normal [facility] Comment on above: Performed By: #### S CAN CBC ####[address] [address] [facility] Platelet mean volume (Bld) [Entitic vol] 7.8 fL Normal 6.6-10.1 [facility] Comment on above: Performed By: #### S CAN CBC ####[place] [id number] [facility] Platelet Morphology Normal Normal Normal [facility] Comment on above: Result Comment: PERF ORMED BY:[address] [place], [place] [phone] MEDICAL ALEKSANDAR LAUREN M.D. Performed By: #### S CAN CBC ####[address] [address] [facility] Platelets (Bld) [#/Vol] 369 10*3/uL Normal 150-450 [facility] Comment on above: Performed By: #### S CAN CBC ####[address] [address] [facility] Polychromasia Slight Normal [facility] Comment on above: Performed By: #### S CAN CBC ####[address] [address] [facility] RBC (Bld) [#/Vol] 2.95 10*6/uL Low 3.90-5.60 [facility] Comment on above: Performed By: #### S CAN CBC ####[address] [address] [facility] Stomatocytes Slight Normal [facility] Comment on above: Performed By: #### S CAN CBC ####[address] [address] [facility] WBC (Bld) [#/Vol] 24.2 10*3/uL High 4.1-10.5 [facility] Comment on above: Performed By: #### S CAN CBC ####[place] [id number] [facility] Specific gravity Auto test s trip (U) [Rel density]Ordered By: Sanjay Holt on 11-16-2022 Specific gravity (U) [Rel density] 1.022 1.001-1.03 0 [facility] Squamous epithelial cells de tection in urine sediment by light microscopyOrdered By: Sanjay Holt on 11-16-2022 Epithelial cells.squamous LM Ql (Urine sed) None seen [HPF] 0-2 [facility] Triglycerideson 11-16-2022 Triglyceride [Mass/Vol] 109 mg/dL Normal 0-149 [facility] Comment on above: Result Comment: TRIG ATP III CLASSIFICATION TRIG less than 150 mg/dL Normal TRIG 150-199 mg/dL Borderline high TRIG 200-500 mg/dL High TRIG greater than 500 mg/dL Very high Standard traceable to the Center for Disease Conrtrol and Prevention (CDC) test method.PERFORMED BY:[facility], [place] [phone] MEDICAL DIRECTORNATI LAUREN M.D. Performed By: #### B MP, TRIG ####[place] [id number] [facility] Urine Cultureon 11-16-2022 Bacteria identified Cx Nom (U) No Growth 2 Days PERFORMED BY: [facility] [address] [place] [id number] PATHOLOGIST NURSERY NURSE NATI LAUREN M.D. Normal [facility] Comment on above: Performed By: #### C UU, ADDONUAPLUS ####[address] [address] [facility] Urine bacteria detection by automated methodOrdered By: Sanjay Holt on 11-16-2022 Bacteria Auto Ql (U) None seen None Seen [facility] Urine clarity by refractomet ry automatedOrdered By: Sanjay Holt on 11-16-2022 Clarity Refractometry automated (U) Clear Clear [facility] Urine culture routineOrdered By: Sanjay Holt on 11-16-2022 Bacteria identified Cx Nom (U) No Growth 2 Days [facility] Urine glucose measurement by automated test strip (mass/volume)Ordered By: Sanjay Holt on 11-16-2022 Glucose Auto test strip (U) [Mass/Vol] Normal mg/dL Normal [facility] Urine hemoglobin detection b y automated test stripOrdered By: Sanjay Holt on 11-16-2022 Hemoglobin Auto test strip Ql (U) 1+ Negative [facility] Urine leukocyte esterase det ection by automated test stripOrdered By: Sanjay Holt on 11-16-2022 Leukocyte esterase Auto test strip Ql (U) 1+ Negative [facility] Urobilinogen Auto test strip (U) [Mass/Vol]Ordered By: Sanjay Hotl on 11-16-2022 Urobilinogen (U) [Mass/Vol] Normal mg/dL Normal [facility] XR chest 1V portableon 11-16 XR chest 1V portable Normal [facility] pH Auto test strip (U)Ordere d By: Sanjay Holt on 11-16-2022 pH (U) 5.5 [pH] 5.0-9.0 [facility] Arterial Blood Gason 023 ABG Base Excess 9.5 mmol/L High -3.0-3.0 [facility] Comment on above: Performed By: #### A BG ####Point of Care testing, ABG Frac Inspired O2 80 % Normal [facility] Comment on above: Performed By: #### A BG ####Point of Care testing, ABG Oxygen Content 7.0 mmol/L Normal 6.6-9.7 [facility] Comment on above: Performed By: #### A BG ####Point of Care testing, ABG Oxygen Saturation 97.2 % Normal 95.0-100.0 [facility] Comment on above: Performed By: #### A BG ####Point of Care testing, ABG PCO2 45.9 mm[Hg] High 35.0-45.0 [facility] Comment on above: Performed By: #### A BG ####Point of Care testing, ABG PEEP 10 [facility] Comment on above: Performed By: #### A BG ####Point of Care testing, ABG PH 7.49 High 7.35-7.45 [facility] Comment on above: Performed By: #### A BG ####Point of Care testing, ABG PO2 92.1 mm[Hg] Normal 80.0-100.0 [facility] Comment on above: Performed By: #### A BG ####Point of Care testing, ABG TV 500 mL [facility] Comment on above: Performed By: #### A BG ####Point of Care testing, CO2 [Moles/Vol] 35.4 mmol/L High 23.0-27.0 [facility] Comment on above: Performed By: #### A BG ####Point of Care testing, HCO3 (Bld) [Moles/Vol] 34.0 mmol/L High 23.0-29.0 [facility] Comment on above: Performed By: #### A BG ####Point of Care testing, Respiratory Critical [facility] Comment on above: Result Comment: Crit ical Value called on: 11/15/2022 at 05:48PERFORMED BY:[place] [address] [place], [place] [phone] MEDICAL DIRECTORNATI LAUREN M.D. Performed By: #### A BG ####Point of Care testing, Set Respiratory Rate 20 [facility] Comment on above: Performed By: #### A BG ####Point of Care testing, VBG Draw Site Left Radial [facility] Comment on above: Performed By: #### A BG ####Point of Care testing, Ventilator Mode AC [facility] Comment on above: Performed By: #### A BG ####Point of Care testing, Basic Metabolic Panelon Anion gap [Moles/Vol] 8.4 mmol/L Normal 6.0-15.0 [facility] Comment on above: Performed By: #### S CAN CBC, BMP ####[place] [address] [place] [address] [facility] Calcium [Mass/Vol] 7.8 mg/dL Low 8.6-10.3 [facility] Comment on above: Performed By: #### S CAN CBC, BMP ####[place] [id number] [facility] Chloride [Moles/Vol] 90 mmol/L Low 98-107 [facility] Comment on above: Performed By: #### S CAN CBC, BMP ####[place] [id number] [facility] CO2 [Moles/Vol] 35.9 mmol/L High 21.0-31.0 [facility] Comment on above: Performed By: #### S CAN CBC, BMP ####[place] [id number] [facility] Creatinine [Mass/Vol] 0.57 mg/dL Low 0.70-1.30 [facility] Comment on above: Performed By: #### S CAN CBC, BMP ####[place] [id number] [facility] Creatinine Clr Calc Pharmacy 191.33 [facility] Comment on above: Result Comment: PERF ORMED BY:[address] [place], [place] [phone] MEDICAL ALEKSANDAR LAUREN M.D. Performed By: #### S CAN CBC, BMP ####[address] [address] [place] GFR/1.73 sq M.predicted MDRD (S/P/Bld) [Vol rate/Area] mL/min/{1.73_m2} [facility] Comment on above: Performed By: #### S CAN CBC, BMP ####[place] [id number] [facility] Glucose [Mass/Vol] 126 mg/dL High 70-100 [facility] Comment on above: Result Comment: [facility] Glucose Reference Range is dependent on time and content of last meal. Glucose of more than 200 mg/dL in a nonstressed, ambulatory subject supports the diagnosis of Diabetes Mellitus. ADA recommended reference range Performed By: #### S CAN CBC, BMP ####[facility] [address] [place] [address] [facility] Potassium [Moles/Vol] 4.3 mmol/L Normal 3.5-5.1 [facility] Comment on above: Performed By: #### S CAN CBC, BMP ####[place] [address] [place] [id number] [facility] Sodium [Moles/Vol] 130 mmol/L Low 136-145 [facility] Comment on above: Performed By: #### S CAN CBC, BMP ####[place] [address] [place] [id number] [facility] Urea nitrogen [Mass/Vol] 28 mg/dL High 7-25 [facility] Comment on above: Performed By: #### S CAN CBC, BMP ####[facility] [id number] [place] [address] [facility] Scan and CBCon 11-15-2022 Basophils (Bld) [#/Vol] 0.0 10*3/uL Normal 0.0-0.2 [facility] Comment on above: Performed By: #### S CAN CBC, BMP ####[place] [address] [place] [id number] [place] Basophils/100 WBC (Bld) 0.1 % Normal . [facility] Comment on above: Performed By: #### S CAN CBC, BMP ####[facility] [place] [address] [place] Eosinophils (Bld) [#/Vol] 0.2 10*3/uL Normal 0.0-0.45 [facility] Comment on above: Performed By: #### S CAN CBC, BMP ####[facility] [place] [id number] [place] Eosinophils/100 WBC (Bld) 1.0 % Normal . [facility] Comment on above: Performed By: #### S CAN CBC, BMP ####[place] [id number] [facility] Erythrocyte distribution width (RBC) [Ratio] 13.7 % Normal 12.0-14.8 [facility] Comment on above: Performed By: #### S CAN CBC, BMP ####[place] [id number] [facility] Hematocrit (Bld) [Volume fraction] 30.3 % Low 38.8-50.0 [facility] Comment on above: Performed By: #### S CAN CBC, BMP ####[address] Hemoglobin (Bld) [Mass/Vol] 10.1 g/dL Low 13.0-17.0 [facility] Comment on above: Performed By: #### S CAN CBC, BMP ####[address] Hypochromasia Moderate Normal [facility] Comment on above: Performed By: #### S CAN CBC, BMP ####[address] Lymphocytes (Bld) [#/Vol] 1.9 10*3/uL Normal 1.00-4.8 [facility] Comment on above: Performed By: #### S CAN CBC, BMP ####[place] [id number] [facility] Lymphocytes/100 WBC (Bld) 7.8 % Normal . [facility] Comment on above: Performed By: #### S CAN CBC, BMP ####[address] MCH (RBC) [Entitic mass] 29.9 pg Normal 27.5-35.2 [facility] Comment on above: Performed By: #### S CAN CBC, BMP ####[place] [id number] [facility] MCV (RBC) [Entitic vol] 89.5 fL Normal 83.5-101 [facility] Comment on above: Performed By: #### S CAN CBC, BMP ####[place] [address] [place] [address] [facility] Mean Corpuscular HGB Conc 33.4 g/dL Normal 32.5-35.6 [facility] Comment on above: Performed By: #### S CAN CBC, BMP ####[address] [address] [facility] Monocytes (Bld) [#/Vol] 2.4 10*3/uL High 0.0-0.8 [facility] Comment on above: Performed By: #### S CAN CBC, BMP ####[place] [address] [place] [id number] [facility] Monocytes/100 WBC (Bld) 9.7 % Normal . [facility] Comment on above: Performed By: #### S CAN CBC, BMP ####[place] [id number] [facility] Neutrophils (Bld) [#/Vol] 20.4 10*3/uL High 1.8-7.7 [facility] Comment on above: Performed By: #### S CAN CBC, BMP ####[place] [id number] [facility] Neutrophils/100 WBC (Bld) 81.4 % Normal . [facility] Comment on above: Performed By: #### S CAN CBC, BMP ####[place] [id number] [facility] NRBC% 0.0 /100{WBC} Normal 0-0.5 [facility] Comment on above: Performed By: #### S CAN CBC, BMP ####[address] [address] [facility] Platelet Estimate Normal Normal Normal [facility] Comment on above: Performed By: #### S CAN CBC, BMP ####[place] [id number] [facility] Platelet mean volume (Bld) [Entitic vol] 7.7 fL Normal 6.6-10.1 [facility] Comment on above: Performed By: #### S CAN CBC, BMP ####[place] [id number] [facility] Platelet Morphology Normal Normal Normal [facility] Comment on above: Result Comment: PERF ORMED BY:[address] [place], [place] [phone] MEDICAL ALEKSANDAR LAUREN M.D. Performed By: #### S CAN CBC, BMP ####[place] [id number] [facility] Platelets (Bld) [#/Vol] 381 10*3/uL Normal 150-450 [facility] Comment on above: Performed By: #### S CAN CBC, BMP ####[address] Polychromasia Slight Normal [facility] Comment on above: Performed By: #### S CAN CBC, BMP ####[address] RBC (Bld) [#/Vol] 3.39 10*6/uL Low 3.90-5.60 [facility] Comment on above: Performed By: #### S CAN CBC, BMP ####[address] Stomatocytes Slight Normal [facility] Comment on above: Performed By: #### S CAN CBC, BMP ####[address] Toxic Vacuolation Slight Normal [facility] Comment on above: Performed By: #### S CAN CBC, BMP ####[place] [id number] [facility] WBC (Bld) [#/Vol] 25.0 10*3/uL High 4.1-10.5 [facility] Comment on above: Performed By: #### S CAN CBC, BMP ####[place] [id number] [facility] Toxic leukocyte vacuolation detectionOrdered By: Reginald Arroyo on 11-15-2022 Leukocyte toxic vacuoles LM Ql (Bld) Slight [facility] XR chest 1V portableon 11-15 XR chest 1V portable Normal [facility] AFB Specimen Processingon AFB Specimen Processing [facility] Comment on above: Performed By: #### A FBCS RES1, MYC CULT ####[facility] ,#### FS ####[facility] [id number] [place] [id number] [facility] Anisocytosis LM Ql (Bld)Orde red By: Reginald Arroyo on 11-14-2022 Anisocytosis Ql (Bld) Slight [facility] Arterial Blood Gason 023 ABG Base Excess 8.5 mmol/L High -3.0-3.0 [facility] Comment on above: Performed By: #### A BG ####Point of Care testing, ABG Frac Inspired O2 85 % [facility] Comment on above: Performed By: #### A BG ####Point of Care testing, ABG Oxygen Content 7.2 mmol/L Normal 6.6-9.7 [facility] Comment on above: Performed By: #### A BG ####Point of Care testing, ABG Oxygen Saturation 93.3 % Low 95.0-100.0 [facility] Comment on above: Performed By: #### A BG ####Point of Care testing, ABG PCO2 47.2 mm[Hg] High 35.0-45.0 [facility] Comment on above: Performed By: #### A BG ####Point of Care testing, ABG PEEP 8 [facility] Comment on above: Performed By: #### A BG ####Point of Care testing, ABG PH 7.47 High 7.35-7.45 [facility] Comment on above: Performed By: #### A BG ####Point of Care testing, ABG PO2 68.0 mm[Hg] Low 80.0-100.0 [facility] Comment on above: Performed By: #### A BG ####Point of Care testing, ABG TV 500 mL [facility] Comment on above: Performed By: #### A BG ####Point of Care testing, CO2 [Moles/Vol] 34.8 mmol/L High 23.0-27.0 [facility] Comment on above: Performed By: #### A BG ####Point of Care testing, HCO3 (Bld) [Moles/Vol] 33.3 mmol/L High 23.0-29.0 [facility] Comment on above: Performed By: #### A BG ####Point of Care testing, Respiratory Critical [facility] Comment on above: Result Comment: Crit ical Value called on: 11/14/2022 at 04:56PERFORMED BY:[facility], [place] [phone] MEDICAL DIRECTORNATI LAUREN M.D. Performed By: #### A BG ####Point of Care testing, Set Respiratory Rate 20 [facility] Comment on above: Performed By: #### A BG ####Point of Care testing, VBG Draw Site Left Radial [facility] Comment on above: Performed By: #### A BG ####Point of Care testing, Ventilator Mode AC [facility] Comment on above: Performed By: #### A BG ####Point of Care testing, Basic Metabolic Panel Anion gap [Moles/Vol] 11.5 mmol/L Normal 6.0-15.0 [facility] Comment on above: Performed By: #### D IFF CBC, BMP ####[facility] [id number] [place] [address] [facility] Calcium [Mass/Vol] 7.8 mg/dL Low 8.6-10.3 [facility] Comment on above: Performed By: #### D IFF CBC, BMP ####[facility] [address] [place] [address] [facility] Chloride [Moles/Vol] 91 mmol/L Low 98-107 [facility] Comment on above: Performed By: #### D IFF CBC, BMP ####[facility] [id number] [place] [address] [place] CO2 [Moles/Vol] 32.8 mmol/L High 21.0-31.0 [facility] Comment on above: Performed By: #### D IFF CBC, BMP ####[facility] [id number] [place] [address] [facility] Creatinine [Mass/Vol] 0.59 mg/dL Low 0.70-1.30 [facility] Comment on above: Performed By: #### D IFF CBC, BMP ####[address] [place] [address] [place] Creatinine Clr Calc Pharmacy 186.93 [facility] Comment on above: Result Comment: PERF ORMED BY:[address] [place], [place] [phone] MEDICAL DIRECTORNATI LAUREN M.D. Performed By: #### D IFF CBC, BMP ####[address] [place] [address] [place] GFR/1.73 sq M.predicted MDRD (S/P/Bld) [Vol rate/Area] mL/min/{1.73_m2} [facility] Comment on above: Performed By: #### D IFF CBC, BMP ####[address] [place] [address] [facility] Glucose [Mass/Vol] 105 mg/dL High 70-100 [facility] Comment on above: Result Comment: [place] Glucose Reference Range is dependent on time and content of last meal. Glucose of more than 200 mg/dL in a nonstressed, ambulatory subject supports the diagnosis of Diabetes Mellitus. ADA recommended reference range Performed By: #### D IFF CBC, BMP ####[facility] [id number] [place] [address] [facility] Potassium [Moles/Vol] 4.3 mmol/L Normal 3.5-5.1 [facility] Comment on above: Performed By: #### D IFF CBC, BMP ####[address] [place] [id number] [facility] Sodium [Moles/Vol] 131 mmol/L Significant change down 136-145 [facility] Comment on above: Performed By: #### D IFF CBC, BMP ####[address] Urea nitrogen [Mass/Vol] 22 mg/dL Normal 7-25 [facility] Comment on above: Performed By: #### D IFF CBC, BMP ####[id number] [facility] Bronch Cultureon 11-14-2022 Bronch Culture Normal [facility] Comment on above: Performed By: #### C UBR, ####[address] Diff and CBCon 11-14-2022 Anisocytosis Ql (Bld) Slight Normal Fir [facility] Comment on above: Performed By: #### D IFF CBC, BMP ####[address] Eosinophils/100 WBC (Bld) 2 % Normal 1-3 [facility] Comment on above: Performed By: #### D IFF CBC, BMP ####[address] Erythrocyte distribution width (RBC) [Ratio] 13.7 % Normal 12.0-14.8 [facility] Comment on above: Performed By: #### D IFF CBC, BMP ####[id number] [facility] Hematocrit (Bld) [Volume fraction] 34.1 % Low 38.8-50.0 [facility] Comment on above: Performed By: #### D IFF CBC, BMP ####[id number] [facility] Hemoglobin (Bld) [Mass/Vol] 11.6 g/dL Low 13.0-17.0 [facility] Comment on above: Performed By: #### D IFF CBC, BMP ####[address] [place] [address] [place] Hypochromasia Slight Normal [facility] Comment on above: Performed By: #### D IFF CBC, BMP ####[id number] [facility] Lymphocytes/100 WBC (Bld) 9 % Low 18-42 [facility] Comment on above: Performed By: #### D IFF CBC, BMP ####[address] MCH (RBC) [Entitic mass] 30.3 pg Normal 27.5-35.2 [facility] Comment on above: Performed By: #### D IFF CBC, BMP ####[address] MCV (RBC) [Entitic vol] 89.3 fL Normal 83.5-101 [facility] Comment on above: Performed By: #### D IFF CBC, BMP ####[address] Mean Corpuscular HGB Conc 33.9 g/dL Normal 32.5-35.6 [facility] Comment on above: Performed By: #### D IFF CBC, BMP ####[address] Metamyelocytes 2 % High 0-0 [facility] Comment on above: Performed By: #### D IFF CBC, BMP ####[id number] [facility] Monocytes/100 WBC (Bld) 8 % Normal 2-11 [facility] Comment on above: Performed By: #### D IFF CBC, BMP ####[id number] [facility] Myelocytes 1 % High 0-0 [facility] Comment on above: Performed By: #### D IFF CBC, BMP ####[id number] [facility] Platelet Estimate Normal Normal Normal [facility] Comment on above: Result Comment: PERF ORMED BY:[address] [place], [place] [phone] MEDICAL DIRECTORNATI LAUREN M.D. Performed By: #### D IFF CBC, BMP ####[address] [address] [facility] Platelet mean volume (Bld) [Entitic vol] 7.3 fL Normal 6.6-10.1 [facility] Comment on above: Performed By: #### D IFF CBC, BMP ####[address] [address] [facility] Platelet Morphology Normal Normal Normal [facility] Comment on above: Result Comment: PERF ORMED BY:[address] [place], [place] [phone] MEDICAL DIRECTORNATI LAUREN M.D. Performed By: #### D IFF CBC, BMP ####[address] [address] [facility] Platelets (Bld) [#/Vol] 445 10*3/uL Normal 150-450 [facility] Comment on above: Performed By: #### D IFF CBC, BMP ####[address] [address] [facility] Poikilocytosis Slight Normal [facility] Comment on above: Performed By: #### D IFF CBC, BMP ####[address] [address] [facility] Polychromasia Slight Normal [facility] Comment on above: Performed By: #### D IFF CBC, BMP ####[address] [address] [facility] RBC (Bld) [#/Vol] 3.82 10*6/uL Low 3.90-5.60 [facility] Comment on above: Performed By: #### D IFF CBC, BMP ####[address] [address] [facility] Segmented neutrophils/100 WBC (Bld) 79 % High 50-70 [facility] Comment on above: Performed By: #### D IFF CBC, BMP ####[facility] [place] [address] [facility] Stomatocytes Slight [facility] Comment on above: Performed By: #### D IFF CBC, BMP ####[facility] [place] [address] [facility] Target Cells Slight [facility] Comment on above: Performed By: #### D IFF CBC, BMP ####[address] [place] [address] [facility] WBC (Bld) [#/Vol] 21.5 10*3/uL High 4.1-10.5 [facility] Comment on above: Performed By: #### D IFF CBC, BMP ####[address] [place] [address] [facility] Eosinophils/100 WBC Manual c nt (Bld)Ordered By: Reginald Arroyo on 11-14-2022 Eosinophils/100 WBC (Bld) 2 % 1-3 [facility] Fungal Smearon 11-14-2022 Fungal Smear Fungus Smear Results No Yeast Like Elements Seen No Fungal Like Elements Seen PERFORMED BY: [facility] [address] [place] [address] PATHOLOGIST NURSERY NURSE NATI LAUREN M.D. [facility] Comment on above: Performed By: #### A FBCS RES1, MYC CULT ####[facility] ,#### FS ####[id number] [facility] Fungus (Mycology) Cultureon 11-14-2022 Fungus (Mycology) Culture [facility] Comment on above: Performed By: #### A FBCS RES1, MYC CULT ####[facility] ,#### FS ####[address] [address] [facility] Glucose Poct Glucometerson 0 11-14-2022 Glucose [Mass/Vol] 87 mg/dL [facility] Comment on above: Result Comment: [place] Glucose Reference Range is dependent on time and content of last meal. Glucose of more than 200 mg/dL in a nonstressed, ambulatory subject supports the diagnosis of Diabetes Mellitus.PERFORMED BY:[facility] [place], [place] [phone] MEDICAL DIRECTORNATI LAUREN M.D. Performed By: #### G LULS ####Point of Care testing, Gram Stainon 11-14-2022 Microscopic observation Gram stain Nom (Unsp spec) Gram Stain Result 3+ White Blood Cells 3+ Gram Positive Bacilli 1FPC PERFORMED BY: [facility] [address] [place] [address] PATHOLOGIST NURSERY NURSE NATI LAUREN M.D. Normal [facility] Comment on above: Performed By: #### C UBR, ####[facility] [id number] [place] [address] [facility] Lymphocytes/100 WBC Manual c nt (Bld)Ordered By: Reginald Arroyo on 11-14-2022 Lymphocytes/100 WBC (Bld) 9 % 18-42 [facility] Metamyelocytes/100 WBC Manua l cnt (Bld)Ordered By: Reginald Arroyo on 11-14-2022 Metamyelocytes/100 WBC (Bld) 2 % 0-0 [facility] Monocytes/100 WBC Manual cnt (Bld)Ordered By: Reginald Arroyo on 11-14-2022 Monocytes/100 WBC (Bld) 8 % 2-11 [facility] Myelocytes/100 WBC Manual cn t (Bld)Ordered By: Reginald Arroyo on 11-14-2022 Myelocytes/100 WBC (Bld) 1 % 0-0 [facility] Segmented neutrophils/100 WB C Manual cnt (Bld)Ordered By: Reginald Arroyo on 11-14-2022 Segmented neutrophils/100 WBC (Bld) 79 % 50-70 [facility] Target cellsOrdered By: Kira Arroyo on 11-14-2022 Target cells LM Ql (Bld) Slight [facility] Triglycerideson 11-14-2022 Triglyceride [Mass/Vol] 144 mg/dL Normal 0-149 [facility] Comment on above: Order Comment: Comme nt please run off blood drawn this morning Result Comment: TRIG ATP III CLASSIFICATION TRIG less than 150 mg/dL Normal TRIG 150-199 mg/dL Borderline high TRIG 200-500 mg/dL High TRIG greater than 500 mg/dL Very high Standard traceable to the Center for Disease Conrtrol and Prevention (CDC) test method.PERFORMED BY:[facility] [place], [place] [phone] MEDICAL DIRECTORNATI LAUREN M.D. Performed By: #### T RIG ####[facility] [address] [place] [address] [facility] US venous duplex LE BIon US venous duplex LE BI Normal [facility] XR chest 1V portableon 11-14 XR chest 1V portable Normal [facility] XR chest 1V portable Normal [facility] Arterial Blood Gason 023 ABG Base Excess 10.0 mmol/L High -3.0-3.0 [facility] Comment on above: Performed By: #### A BG ####Point of Care testing, ABG Frac Inspired O2 60 % [facility] Comment on above: Performed By: #### A BG ####Point of Care testing, ABG Oxygen Content 7.3 mmol/L Normal 6.6-9.7 [facility] Comment on above: Performed By: #### A BG ####Point of Care testing, ABG Oxygen Saturation 90.3 % Low 95.0-100.0 [facility] Comment on above: Performed By: #### A BG ####Point of Care testing, ABG PCO2 52.0 mm[Hg] Off scale high 35.0-45.0 [facility] Comment on above: Performed By: #### A BG ####Point of Care testing, ABG PEEP 8 [facility] Comment on above: Performed By: #### A BG ####Point of Care testing, ABG PH 7.45 Normal 7.35-7.45 [facility] Comment on above: Performed By: #### A BG ####Point of Care testing, ABG PO2 58.1 mm[Hg] Low 80.0-100.0 [facility] Comment on above: Performed By: #### A BG ####Point of Care testing, ABG TV 500 mL [facility] Comment on above: Performed By: #### A BG ####Point of Care testing, CO2 [Moles/Vol] 37.2 mmol/L High 23.0-27.0 [facility] Comment on above: Performed By: #### A BG ####Point of Care testing, HCO3 (Bld) [Moles/Vol] 35.6 mmol/L High 23.0-29.0 [facility] Comment on above: Performed By: #### A BG ####Point of Care testing, Respiratory Critical [facility] Comment on above: Result Comment: Crit ical Value called on: 11/13/2022 at 05:00PERFORMED BY:[facility] [place], [place] [phone] MEDICAL DIRECTORNATI LAUREN M.D. Performed By: #### A BG ####Point of Care testing, Set Respiratory Rate 20 [facility] Comment on above: Performed By: #### A BG ####Point of Care testing, VBG Draw Site Right Radial [facility] Comment on above: Performed By: #### A BG ####Point of Care testing, Ventilator Mode AC [facility] Comment on above: Performed By: #### A BG ####Point of Care testing, Basic Metabolic Panelon 050 Anion gap [Moles/Vol] 7.9 mmol/L Normal 6.0-15.0 [facility] Comment on above: Performed By: #### S CAN CBC, BMP ####[facility] [id number] Banegasdavis [place] [address] [place] Calcium [Mass/Vol] 8.0 mg/dL Low 8.6-10.3 [facility] Comment on above: Performed By: #### S CAN CBC, BMP ####[facility] Y[address]1 [place] [address] [place] Chloride [Moles/Vol] 96 mmol/L Low 98-107 [facility] Comment on above: Performed By: #### S CAN CBC, BMP ####[facility] Tle[address] [place] [address] [place] CO2 [Moles/Vol] 37.5 mmol/L High 21.0-31.0 [facility] Comment on above: Performed By: #### S CAN CBC, BMP ####[facility] [address] [place] [address] [place] Creatinine [Mass/Vol] 0.42 mg/dL Low 0.70-1.30 [facility] Comment on above: Performed By: #### S CAN CBC, BMP ####[facility] Xkr3876 [place] [address] [place] Creatinine Clr Calc Pharmacy 263.49 [facility] Comment on above: Result Comment: PERF ORMED BY:[address] [place], [place] [phone] MEDICAL DIRECTORNATI LAUREN M.D. Performed By: #### S CAN CBC, BMP ####[address] [place] [address] [place] GFR/1.73 sq M.predicted MDRD (S/P/Bld) [Vol rate/Area] mL/min/{1.73_m2} [facility] Comment on above: Performed By: #### S CAN CBC, BMP ####[facility] [address] [place] [address] [place] Glucose [Mass/Vol] 93 mg/dL Normal 70-100 [facility] Comment on above: Result Comment: [place] Glucose Reference Range is dependent on time and content of last meal. Glucose of more than 200 mg/dL in a nonstressed, ambulatory subject supports the diagnosis of Diabetes Mellitus. ADA recommended reference range Performed By: #### S CAN CBC, BMP ####[facility] [id number] [place] [address] [facility] Potassium [Moles/Vol] 4.4 mmol/L Normal 3.5-5.1 [facility] Comment on above: Performed By: #### S CAN CBC, BMP ####[facility] Ajy[address] [place] [address] [facility] Sodium [Moles/Vol] 137 mmol/L Normal 136-145 [facility] Comment on above: Performed By: #### S CAN CBC, BMP ####[facility] [address] [place] [id number] [facility] Urea nitrogen [Mass/Vol] 20 mg/dL Normal 7-25 [facility] Comment on above: Performed By: #### S CAN CBC, BMP ####[facility] [address] [place] [id number] [facility] Glucose Poct Glucometerson 0 11-13-2022 Commemt1 Glu2: Cleaned Meter [facility] Comment on above: Result Comment: PERF ORMED BY:[address] [place], [place] [phone] MEDICAL DIRECTORNATI LAUREN M.D. Performed By: #### G LULS ####Point of Care testing, Glucose [Mass/Vol] 121 mg/dL [facility] Comment on above: Result Comment: [facility] Glucose Reference Range is dependent on time and content of last meal. Glucose of more than 200 mg/dL in a nonstressed, ambulatory subject supports the diagnosis of Diabetes Mellitus. Performed By: #### G LULS ####Point of Care testing, Commemt1 Glu2: Cleaned Meter [facility] Comment on above: Result Comment: PERF ORMED BY:[address] [place], [place] [phone] MEDICAL DIRECTORNATI LAUREN M.D. Performed By: #### G LULS ####Point of Care testing, Glucose [Mass/Vol] 87 mg/dL [facility] Comment on above: Result Comment: [facility] Glucose Reference Range is dependent on time and content of last meal. Glucose of more than 200 mg/dL in a nonstressed, ambulatory subject supports the diagnosis of Diabetes Mellitus. Performed By: #### G LULS ####Point of Care testing, Commemt1 Glu2: Cleaned Meter [facility] Comment on above: Result Comment: PERF ORMED BY:[address] [place], [place] [phone] MEDICAL DIRECTORNATI LAUREN M.D. Performed By: #### G LULS ####Point of Care testing, Glucose [Mass/Vol] 96 mg/dL Normal [facility] Comment on above: Result Comment: [place] om Glucose Reference Range is dependent on time and content of last meal. Glucose of more than 200 mg/dL in a nonstressed, ambulatory subject supports the diagnosis of Diabetes Mellitus. Performed By: #### G LULS ####Point of Care testing, Commemt1 Glu2: Cleaned Meter [facility] Comment on above: Result Comment: PERF ORMED BY:[address] [place], [place] [phone] MEDICAL DIRECTORNATI LAUREN M.D. Performed By: #### G LULS ####Point of Care testing, Glucose [Mass/Vol] 111 mg/dL Normal [facility] Comment on above: Result Comment: [place] om Glucose Reference Range is dependent on time and content of last meal. Glucose of more than 200 mg/dL in a nonstressed, ambulatory subject supports the diagnosis of Diabetes Mellitus. Performed By: #### G LULS ####Point of Care testing, Scan and CBCon 11-13-2022 Basophils (Bld) [#/Vol] 0.2 10*3/uL Normal 0.0-0.2 [facility] Comment on above: Performed By: #### S CAN CBC, BMP ####[facility] Sey[address] [place] [address] [facility] Basophils/100 WBC (Bld) 1.2 % Normal . [facility] Comment on above: Performed By: #### S CAN CBC, BMP ####[address] Eosinophils (Bld) [#/Vol] 0.3 10*3/uL Normal 0.0-0.45 [facility] Comment on above: Performed By: #### S CAN CBC, BMP ####[address] Eosinophils/100 WBC (Bld) 2.0 % Normal . [facility] Comment on above: Performed By: #### S CAN CBC, BMP ####[address] Erythrocyte distribution width (RBC) [Ratio] 14.3 % Normal 12.0-14.8 [facility] Comment on above: Performed By: #### S CAN CBC, BMP ####[address] Hematocrit (Bld) [Volume fraction] 30.0 % Low 38.8-50.0 [facility] Comment on above: Performed By: #### S CAN CBC, BMP ####[address] Hemoglobin (Bld) [Mass/Vol] 9.8 g/dL Low 13.0-17.0 [facility] Comment on above: Performed By: #### S CAN CBC, BMP ####[address] Hypochromasia Moderate Normal [facility] Comment on above: Performed By: #### S CAN CBC, BMP ####[address] Lymphocytes (Bld) [#/Vol] 3.0 10*3/uL Normal 1.00-4.8 [facility] Comment on above: Performed By: #### S CAN CBC, BMP ####[address] Lymphocytes/100 WBC (Bld) 19.1 % Normal . [facility] Comment on above: Performed By: #### S CAN CBC, BMP ####[facility] [address] MCH (RBC) [Entitic mass] 29.6 pg Normal 27.5-35.2 [facility] Comment on above: Performed By: #### S CAN CBC, BMP ####[address] MCV (RBC) [Entitic vol] 90.9 fL Normal 83.5-101 [facility] Comment on above: Performed By: #### S CAN CBC, BMP ####[address] Mean Corpuscular HGB Conc 32.6 g/dL Normal 32.5-35.6 [facility] Comment on above: Performed By: #### S CAN CBC, BMP ####[address] Monocytes (Bld) [#/Vol] 1.2 10*3/uL High 0.0-0.8 [facility] Comment on above: Performed By: #### S CAN CBC, BMP ####[address] Monocytes/100 WBC (Bld) 7.7 % Normal . [facility] Comment on above: Performed By: #### S CAN CBC, BMP ####[address] Neutrophils (Bld) [#/Vol] 11.1 10*3/uL High 1.8-7.7 [facility] Comment on above: Performed By: #### S CAN CBC, BMP ####[address] Neutrophils/100 WBC (Bld) 70.0 % Normal . [facility] Comment on above: Performed By: #### S CAN CBC, BMP ####[address] NRBC% 0.1 /100{WBC} Normal 0-0.5 [facility] Comment on above: Performed By: #### S CAN CBC, BMP ####[address] [place] [address] [facility] Platelet Estimate Normal Normal Normal [facility] Comment on above: Performed By: #### S CAN CBC, BMP ####[place] [id number] [facility] Platelet mean volume (Bld) [Entitic vol] 7.0 fL Normal 6.6-10.1 [facility] Comment on above: Performed By: #### S CAN CBC, BMP ####[place] [id number] [facility] Platelet Morphology Normal Normal Normal [facility] Comment on above: Result Comment: PERF ORMED BY:[address] [place], [place] [phone] MEDICAL DIRECTORNATI LAUREN M.D. Performed By: #### S CAN CBC, BMP ####[id number] [facility] Platelets (Bld) [#/Vol] 435 10*3/uL Normal 150-450 [facility] Comment on above: Performed By: #### S CAN CBC, BMP ####[place] [id number] [facility] Polychromasia Slight Normal [facility] Comment on above: Performed By: #### S CAN CBC, BMP ####[address] [id number] [facility] RBC (Bld) [#/Vol] 3.30 10*6/uL Low 3.90-5.60 [facility] Comment on above: Performed By: #### S CAN CBC, BMP ####[place] [id number] [facility] Stomatocytes Slight Normal [facility] Comment on above: Performed By: #### S CAN CBC, BMP ####[place] [id number] [facility] WBC (Bld) [#/Vol] 15.9 10*3/uL High 4.1-10.5 [facility] Comment on above: Performed By: #### S CAN CBC, BMP ####[facility] [id number] [place] [address] [facility] XR chest 1V portableon 11-13 XR chest 1V portable Normal [facility] Arterial Blood Gason 023 ABG Base Excess 7.5 mmol/L High -3.0-3.0 [facility] Comment on above: Performed By: #### A BG ####Point of Care testing, ABG Frac Inspired O2 45 % [facility] Comment on above: Performed By: #### A BG ####Point of Care testing, ABG Oxygen Content 6.3 mmol/L Low 6.6-9.7 [facility] Comment on above: Performed By: #### A BG ####Point of Care testing, ABG Oxygen Saturation 89.5 % Low 95.0-100.0 [facility] Comment on above: Performed By: #### A BG ####Point of Care testing, ABG PCO2 50.7 mm[Hg] Off scale high 35.0-45.0 [facility] Comment on above: Performed By: #### A BG ####Point of Care testing, ABG PEEP 8 [facility] Comment on above: Performed By: #### A BG ####Point of Care testing, ABG PH 7.43 Normal 7.35-7.45 [facility] Comment on above: Performed By: #### A BG ####Point of Care testing, ABG PO2 59.2 mm[Hg] Low 80.0-100.0 [facility] Comment on above: Performed By: #### A BG ####Point of Care testing, ABG TV 500 mL [facility] Comment on above: Performed By: #### A BG ####Point of Care testing, CO2 [Moles/Vol] 34.5 mmol/L High 23.0-27.0 [facility] Comment on above: Performed By: #### A BG ####Point of Care testing, HCO3 (Bld) [Moles/Vol] 33.0 mmol/L High 23.0-29.0 [facility] Comment on above: Performed By: #### A BG ####Point of Care testing, Respiratory Critical [facility] Comment on above: Result Comment: Crit ical Value called on: 11/12/2022 at 04:59PERFORMED BY:[address] [place], [place] [phone] MEDICAL DIRECTORNATI LAUREN M.D. Performed By: #### A BG ####Point of Care testing, Set Respiratory Rate 20 [facility] Comment on above: Performed By: #### A BG ####Point of Care testing, VBG Draw Site Right Radial [facility] Comment on above: Performed By: #### A BG ####Point of Care testing, Ventilator Mode AC [facility] Comment on above: Performed By: #### A BG ####Point of Care testing, Basic Metabolic Panelon 05 Anion gap [Moles/Vol] 7.0 mmol/L Normal 6.0-15.0 [facility] Comment on above: Performed By: #### B MP, DIFF CBC ####[facility] [id number] [place] [address] [facility] Calcium [Mass/Vol] 7.7 mg/dL Low 8.6-10.3 [facility] Comment on above: Performed By: #### B MP, DIFF CBC ####[facility] [id number] [place] [address] [place] Chloride [Moles/Vol] 99 mmol/L Normal 98-107 [facility] Comment on above: Performed By: #### B MP, DIFF CBC ####[facility] [id number] [place] [address] [place] CO2 [Moles/Vol] 36.1 mmol/L High 21.0-31.0 [facility] Comment on above: Performed By: #### B MP, DIFF CBC ####[facility] [id number] [place] [address] [place] Creatinine [Mass/Vol] 0.39 mg/dL Low 0.70-1.30 [facility] Comment on above: Performed By: #### B MP, DIFF CBC ####[address] [place] [address] [place] Creatinine Clr Calc Pharmacy 278.31 [facility] Comment on above: Result Comment: PERF ORMED BY:[address] [place], [place] [phone] MEDICAL ALEKSANDAR LAUREN M.D. Performed By: #### B MP, DIFF CBC ####[facility] [id number] [place] [address] [place] GFR/1.73 sq M.predicted MDRD (S/P/Bld) [Vol rate/Area] mL/min/{1.73_m2} [facility] Comment on above: Performed By: #### B MP, DIFF CBC ####[address] [place] [address] [facility] Glucose [Mass/Vol] 128 mg/dL High 70-100 [facility] Comment on above: Result Comment: [place] Glucose Reference Range is dependent on time and content of last meal. Glucose of more than 200 mg/dL in a nonstressed, ambulatory subject supports the diagnosis of Diabetes Mellitus. ADA recommended reference range Performed By: #### B MP, DIFF CBC ####[address] [place] [address] [place] Potassium [Moles/Vol] 4.1 mmol/L Normal 3.5-5.1 [facility] Comment on above: Performed By: #### B MP, DIFF CBC ####[address] [place] [address] [place] Sodium [Moles/Vol] 138 mmol/L Normal 136-145 [facility] Comment on above: Performed By: #### B MP, DIFF CBC ####[facility] [id number] [place] [address] [place] Urea nitrogen [Mass/Vol] 15 mg/dL Normal 7-25 [facility] Comment on above: Performed By: #### B MP, DIFF CBC ####[id number] [facility] Diff and CBCon 11-12-2022 Anisocytosis Ql (Bld) Slight Normal Fir [facility] Comment on above: Performed By: #### B MP, DIFF CBC ####[id number] [facility] Erythrocyte distribution width (RBC) [Ratio] 13.9 % Normal 12.0-14.8 [facility] Comment on above: Performed By: #### B MP, DIFF CBC ####[address] Hematocrit (Bld) [Volume fraction] 29.5 % Low 38.8-50.0 [facility] Comment on above: Performed By: #### B MP, DIFF CBC ####[address] Hemoglobin (Bld) [Mass/Vol] 9.9 g/dL Low 13.0-17.0 [facility] Comment on above: Performed By: #### B MP, DIFF CBC ####[id number] [facility] Hypochromasia Moderate Normal [facility] Comment on above: Performed By: #### B MP, DIFF CBC ####[id number] [facility] Lymphocytes/100 WBC (Bld) 13 % Low 18-42 [facility] Comment on above: Performed By: #### B MP, DIFF CBC ####[id number] [facility] MCH (RBC) [Entitic mass] 30.5 pg Normal 27.5-35.2 [facility] Comment on above: Performed By: #### B MP, DIFF CBC ####[id number] [facility] MCV (RBC) [Entitic vol] 91.1 fL Normal 83.5-101 [facility] Comment on above: Performed By: #### B MP, DIFF CBC ####[address] [place] [address] [facility] Mean Corpuscular HGB Conc 33.5 g/dL Normal 32.5-35.6 [facility] Comment on above: Performed By: #### B MP, DIFF CBC ####[id number] [facility] Metamyelocytes 3 % High 0-0 [facility] Comment on above: Performed By: #### B MP, DIFF CBC ####[address] Monocytes/100 WBC (Bld) 4 % Normal 2-11 [facility] Comment on above: Performed By: #### B MP, DIFF CBC ####[address] Myelocytes 3 % High 0-0 [facility] Comment on above: Performed By: #### B MP, DIFF CBC ####[id number] [facility] Platelet Estimate Normal Normal Normal [facility] Comment on above: Performed By: #### B MP, DIFF CBC ####[id number] [facility] Platelet mean volume (Bld) [Entitic vol] 7.1 fL Normal 6.6-10.1 [facility] Comment on above: Result Comment: PERF ORMED BY:[address] [place], [place] [phone] MEDICAL DIRECTORNATI LAUREN M.D. Performed By: #### B MP, DIFF CBC ####[id number] [facility] Platelet Morphology Normal Normal Normal [facility] Comment on above: Result Comment: PERF ORMED BY:[address] [place], [place] [phone] MEDICAL DIRECTORNATI LAUREN M.D. Performed By: #### B MP, DIFF CBC ####[id number] [place] Platelets (Bld) [#/Vol] 375 10*3/uL Normal 150-450 [facility] Comment on above: Performed By: #### B MP, DIFF CBC ####[address] RBC (Bld) [#/Vol] 3.24 10*6/uL Low 3.90-5.60 [facility] Comment on above: Performed By: #### B MP, DIFF CBC ####[address] Segmented neutrophils/100 WBC (Bld) 78 % High 50-70 [facility] Comment on above: Performed By: #### B MP, DIFF CBC ####[address] WBC (Bld) [#/Vol] 18.3 10*3/uL High 4.1-10.5 [facility] Comment on above: Performed By: #### B MP, DIFF CBC ####[id number] [facility] Glucose Poct Glucometerson 0 11-12-2022 Commemt1 Glu2: Cleaned Meter Normal [facility] Comment on above: Result Comment: PERF ORMED BY:[address] [place], [place] [phone] MEDICAL DIRECTORNATI LAUREN M.D. Performed By: #### G BENJAMIN ####Point of Care testing, Glucose [Mass/Vol] 125 mg/dL Normal [facility] Comment on above: Result Comment: [place] Glucose Reference Range is dependent on time and content of last meal. Glucose of more than 200 mg/dL in a nonstressed, ambulatory subject supports the diagnosis of Diabetes Mellitus. Performed By: #### G BENJAMIN ####Point of Care testing, Glucose [Mass/Vol] 133 mg/dL Normal [facility] Comment on above: Result Comment: [place] Glucose Reference Range is dependent on time and content of last meal. Glucose of more than 200 mg/dL in a nonstressed, ambulatory subject supports the diagnosis of Diabetes Mellitus.PERFORMED BY:[address] [address] [place], [place] [phone] MEDICAL DIRECTORNATI LAUREN M.D. Performed By: #### G LULS ####Point of Care testing, Commemt1 Glu2: Cleaned Meter [facility] Comment on above: Result Comment: PERF ORMED BY:[address] [address] [place] [place], [place] [phone] MEDICAL ALEKSANDAR LAUREN M.D. Performed By: #### G LULS ####Point of Care testing, Glucose [Mass/Vol] 122 mg/dL Normal [facility] Comment on above: Result Comment: [place] om Glucose Reference Range is dependent on time and content of last meal. Glucose of more than 200 mg/dL in a nonstressed, ambulatory subject supports the diagnosis of Diabetes Mellitus. Performed By: #### G LULS ####Point of Care testing, Commemt1 Glu2: Cleaned Meter [facility] Comment on above: Result Comment: PERF ORMED BY:[address] [place], [place] [phone] MEDICAL DIRECTORNATI LAUREN M.D. Performed By: #### G LULS ####Point of Care testing, Glucose [Mass/Vol] 120 mg/dL Normal [facility] Comment on above: Result Comment: [place] om Glucose Reference Range is dependent on time and content of last meal. Glucose of more than 200 mg/dL in a nonstressed, ambulatory subject supports the diagnosis of Diabetes Mellitus. Performed By: #### G LULS ####Point of Care testing, XR chest 1V portableon 11-12 XR chest 1V portable [facility] XR chest 1V portable [facility] Arterial Blood Gason 023 ABG Base Excess 6.6 mmol/L High -3.0-3.0 [facility] Comment on above: Performed By: #### A BG ####Point of Care testing, ABG Frac Inspired O2 60 % Normal [facility] Comment on above: Performed By: #### A BG ####Point of Care testing, ABG Oxygen Content 6.3 mmol/L Low 6.6-9.7 [facility] Comment on above: Performed By: #### A BG ####Point of Care testing, ABG Oxygen Saturation 91.6 % Low 95.0-100.0 [facility] Comment on above: Performed By: #### A BG ####Point of Care testing, ABG PCO2 48.7 mm[Hg] High 35.0-45.0 [facility] Comment on above: Performed By: #### A BG ####Point of Care testing, ABG PEEP 8 [facility] Comment on above: Performed By: #### A BG ####Point of Care testing, ABG PH 7.43 Normal 7.35-7.45 [facility] Comment on above: Performed By: #### A BG ####Point of Care testing, ABG PO2 63.6 mm[Hg] Low 80.0-100.0 [facility] Comment on above: Performed By: #### A BG ####Point of Care testing, ABG TV 500 mL [facility] Comment on above: Performed By: #### A BG ####Point of Care testing, CO2 [Moles/Vol] 33.3 mmol/L High 23.0-27.0 [facility] Comment on above: Performed By: #### A BG ####Point of Care testing, HCO3 (Bld) [Moles/Vol] 31.8 mmol/L High 23.0-29.0 [facility] Comment on above: Performed By: #### A BG ####Point of Care testing, Respiratory Critical [facility] Comment on above: Result Comment: Crit ical Value called on: 11/11/2022 at 05:36PERFORMED BY:[address] [address] [place], [place] [phone] MEDICAL DIRECTORNATI LAUREN M.D. Performed By: #### A BG ####Point of Care testing, Set Respiratory Rate 20 [facility] Comment on above: Performed By: #### A BG ####Point of Care testing, VBG Draw Site Right Radial [facility] Comment on above: Performed By: #### A BG ####Point of Care testing, Ventilator Mode AC [facility] Comment on above: Performed By: #### A BG ####Point of Care testing, Basic Metabolic Panelon 050 Anion gap [Moles/Vol] 7.7 mmol/L Normal 6.0-15.0 [facility] Comment on above: Performed By: #### T RIG, BMP, DIFF CBC ####[address] [id number] [facility] Calcium [Mass/Vol] 7.5 mg/dL Low 8.6-10.3 [facility] Comment on above: Performed By: #### T RIG, BMP, DIFF CBC ####[id number] [facility] Chloride [Moles/Vol] 99 mmol/L Normal 98-107 [facility] Comment on above: Performed By: #### T RIG, BMP, DIFF CBC ####[address] [id number] [facility] CO2 [Moles/Vol] 34.3 mmol/L High 21.0-31.0 [facility] Comment on above: Performed By: #### T RIG, BMP, DIFF CBC ####[id number] [facility] Creatinine [Mass/Vol] 0.36 mg/dL Low 0.70-1.30 [facility] Comment on above: Performed By: #### T RIG, BMP, DIFF CBC ####[place] [id number] [facility] Creatinine Clr Calc Pharmacy 301.11 [facility] Comment on above: Performed By: #### T RIG, BMP, DIFF CBC ####[address] [id number] [place] GFR/1.73 sq M.predicted MDRD (S/P/Bld) [Vol rate/Area] mL/min/{1.73_m2} Normal [facility] Comment on above: Performed By: #### T RIG BMP, DIFF CBC ####[id number] [facility] Glucose [Mass/Vol] 108 mg/dL High 70-100 [facility] Comment on above: Result Comment: [facility] Glucose Reference Range is dependent on time and content of last meal. Glucose of more than 200 mg/dL in a nonstressed, ambulatory subject supports the diagnosis of Diabetes Mellitus. ADA recommended reference range Performed By: #### T RIG BMP, DIFF CBC ####[id number] [facility] Potassium [Moles/Vol] 4.0 mmol/L Normal 3.5-5.1 [facility] Comment on above: Performed By: #### T RIG BMP, DIFF CBC ####[address] Sodium [Moles/Vol] 137 mmol/L Normal 136-145 [facility] Comment on above: Performed By: #### T RIG BMP, DIFF CBC ####[id number] [facility] Urea nitrogen [Mass/Vol] 14 mg/dL Normal 7-25 [facility] Comment on above: Performed By: #### T RIG BMP, DIFF CBC ####[id number] [place] Diff and CBCon 11-11-2022 Anisocytosis Ql (Bld) Slight Normal [facility] Comment on above: Performed By: #### T RIG BMP, DIFF CBC ####[id number] [place] Eosinophils/100 WBC (Bld) 2 % Normal 1-3 [facility] Comment on above: Performed By: #### T RIG, BMP, DIFF CBC ####[address] [id number] [facility] Erythrocyte distribution width (RBC) [Ratio] 14.3 % Normal 12.0-14.8 [facility] Comment on above: Performed By: #### T RIG, BMP, DIFF CBC ####[address] Hematocrit (Bld) [Volume fraction] 31.2 % Low 38.8-50.0 [facility] Comment on above: Performed By: #### T RIG, BMP, DIFF CBC ####[address] Hemoglobin (Bld) [Mass/Vol] 10.2 g/dL Low 13.0-17.0 [facility] Comment on above: Performed By: #### T RIG BMP, DIFF CBC ####[address] Hypochromasia Moderate Normal [facility] Comment on above: Performed By: #### T RIG BMP, DIFF CBC ####[address] Lymphocytes/100 WBC (Bld) 11 % Low 18-42 [facility] Comment on above: Performed By: #### T RIG BMP, DIFF CBC ####[address] MCH (RBC) [Entitic mass] 29.9 pg Normal 27.5-35.2 [facility] Comment on above: Performed By: #### T RIG, BMP, DIFF CBC ####[address] MCV (RBC) [Entitic vol] 91.8 fL Normal 83.5-101 [facility] Comment on above: Performed By: #### T RIG, BMP, DIFF CBC ####[address] Mean Corpuscular HGB Conc 32.6 g/dL Normal 32.5-35.6 [facility] Comment on above: Performed By: #### T RIG, BMP, DIFF CBC ####[address] Metamyelocytes 2 % High 0-0 [facility] Comment on above: Performed By: #### T RIG, BMP, DIFF CBC ####[address] Monocytes/100 WBC (Bld) 6 % Normal 2-11 [facility] Comment on above: Performed By: #### T RIG, BMP, DIFF CBC ####[address] Myelocytes 1 % High 0-0 [facility] Comment on above: Performed By: #### T RIG, BMP, DIFF CBC ####[address] Platelet Estimate Normal Normal Normal [facility] Comment on above: Performed By: #### T RIG, BMP, DIFF CBC ####[address] Platelet mean volume (Bld) [Entitic vol] 6.8 fL Normal 6.6-10.1 [facility] Comment on above: Result Comment: PERF ORMED BY:[address] [place], [place] [phone] MEDICAL ALEKSANDAR LAUREN M.D. Performed By: #### T RIG, BMP, DIFF CBC ####[id number] [facility] Platelet Morphology Normal Normal Normal [facility] Comment on above: Result Comment: PERF ORMED BY:[address] [place], [place] [phone] MEDICAL DIRECTORNATI LAUREN M.D. Performed By: #### T RIG, BMP, DIFF CBC ####[address] Platelets (Bld) [#/Vol] 401 10*3/uL Normal 150-450 [facility] Comment on above: Performed By: #### T RIG, BMP, DIFF CBC ####[address] [place] [address] [facility] Polychromasia Slight Normal [facility] Comment on above: Performed By: #### T RIG BMP, DIFF CBC ####[place] [id number] [facility] RBC (Bld) [#/Vol] 3.40 10*6/uL Low 3.90-5.60 [facility] Comment on above: Performed By: #### T RIG BMP, DIFF CBC ####[place] [id number] [facility] Segmented neutrophils/100 WBC (Bld) 79 % High 50-70 [facility] Comment on above: Performed By: #### T BLACK BMP, DIFF CBC ####[address] WBC (Bld) [#/Vol] 19.1 10*3/uL High 4.1-10.5 [facility] Comment on above: Performed By: #### T KERRI CLEANING, DIFF CBC ####[place] [id number] [facility] Glucose Poct Glucometerson 0 11-11-2022 Glucose [Mass/Vol] 156 mg/dL [facility] Comment on above: Result Comment: [place] Glucose Reference Range is dependent on time and content of last meal. Glucose of more than 200 mg/dL in a nonstressed, ambulatory subject supports the diagnosis of Diabetes Mellitus.PERFORMED BY:[address] [place], [place] [phone] MEDICAL DIRECTORNATI LAUREN M.D. Performed By: #### G LULS ####Point of Care testing, Commemt1 Glu2: Cleaned Meter [facility] Comment on above: Performed By: #### G LULS ####Point of Care testing, Commemt2 SLIDING SCALE COVERA Normal [facility] Comment on above: Result Comment: PERF ORMED BY:[address] [place], [place] [phone] MEDICAL DIRECTORNATI LAUREN M.D. Performed By: #### G LULS ####Point of Care testing, Glucose [Mass/Vol] 158 mg/dL Normal [facility] Comment on above: Result Comment: [place] om Glucose Reference Range is dependent on time and content of last meal. Glucose of more than 200 mg/dL in a nonstressed, ambulatory subject supports the diagnosis of Diabetes Mellitus. Performed By: #### G LULS ####Point of Care testing, Glucose [Mass/Vol] 97 mg/dL Normal [facility] Comment on above: Result Comment: [place] om Glucose Reference Range is dependent on time and content of last meal. Glucose of more than 200 mg/dL in a nonstressed, ambulatory subject supports the diagnosis of Diabetes Mellitus.PERFORMED BY:[address] [place], [place] [phone] MEDICAL DIRECTORNATI LAUREN M.D. Performed By: #### G LULS ####Point of Care testing, Magnesiumon 11-11-2022 Magnesium [Mass/Vol] 2.2 mg/dL Normal 1.9-2.7 [facility] Comment on above: Order Comment: Comme nt please run off blood drawn this morning Result Comment: PERF ORMED BY:[address] [place], [place] [phone] MEDICAL DIRECTORNATI LAUREN M.D. Performed By: #### M G ####[facility] [place] [address] [facility] No Panel InformationOrdered By: Rubi Ramos on 11-11-2022 Bedside Glucose #2 Comment Sliding scale covera [facility] Triglycerideson 11-11-2022 Triglyceride [Mass/Vol] 143 mg/dL Normal 0-149 [facility] Comment on above: Result Comment: TRIG ATP III CLASSIFICATION TRIG less than 150 mg/dL Normal TRIG 150-199 mg/dL Borderline high TRIG 200-500 mg/dL High TRIG greater than 500 mg/dL Very high Standard traceable to the Center for Disease Conrtrol and Prevention (CDC) test method.PERFORMED BY:[address] [place] [phone] MEDICAL DIRECTORNATI LAUREN M.D. Performed By: #### T RIG, BMP, DIFF CBC ####[facility] [id number] [place] [address] [facility] XR chest 1V portableon 11-11 XR chest 1V portable Normal [facility] Arterial Blood Gason 023 ABG Base Excess 8.6 mmol/L High -3.0-3.0 [facility] Comment on above: Performed By: #### A BG ####Point of Care testing, ABG Frac Inspired O2 40 % [facility] Comment on above: Performed By: #### A BG ####Point of Care testing, ABG Oxygen Content 6.6 mmol/L Normal 6.6-9.7 [facility] Comment on above: Performed By: #### A BG ####Point of Care testing, ABG Oxygen Saturation 92.0 % Low 95.0-100.0 [facility] Comment on above: Performed By: #### A BG ####Point of Care testing, ABG PCO2 47.0 mm[Hg] High 35.0-45.0 [facility] Comment on above: Performed By: #### A BG ####Point of Care testing, ABG PEEP 6 [facility] Comment on above: Performed By: #### A BG ####Point of Care testing, ABG PH 7.47 High 7.35-7.45 [facility] Comment on above: Performed By: #### A BG ####Point of Care testing, ABG PO2 61.7 mm[Hg] Low 80.0-100.0 [facility] Comment on above: Performed By: #### A BG ####Point of Care testing, ABG TV 500 mL [facility] Comment on above: Performed By: #### A BG ####Point of Care testing, CO2 [Moles/Vol] 34.8 mmol/L High 23.0-27.0 [facility] Comment on above: Performed By: #### A BG ####Point of Care testing, HCO3 (Bld) [Moles/Vol] 33.4 mmol/L High 23.0-29.0 [facility] Comment on above: Performed By: #### A BG ####Point of Care testing, Respiratory Critical [facility] Comment on above: Result Comment: Crit ical Value called on: 11/10/2022 at 05:16PERFORMED BY:[address] [address] [place], [place] [phone] MEDICAL DIRECTORNATI LAUREN M.D. Performed By: #### A BG ####Point of Care testing, Set Respiratory Rate 20 [facility] Comment on above: Performed By: #### A BG ####Point of Care testing, VBG Draw Site Left Brachial [facility] Comment on above: Performed By: #### A BG ####Point of Care testing, Ventilator Mode AC [facility] Comment on above: Performed By: #### A BG ####Point of Care testing, Basic Metabolic Panelon Anion gap [Moles/Vol] 7.5 mmol/L Normal 6.0-15.0 [facility] Comment on above: Performed By: #### D IFF CBC, BMP ####[facility] [id number] [place] [address] [facility] Calcium [Mass/Vol] 7.5 mg/dL Low 8.6-10.3 [facility] Comment on above: Performed By: #### D IFF CBC, BMP ####[facility] [id number] [place] [address] [place] Chloride [Moles/Vol] 100 mmol/L Normal 98-107 [facility] Comment on above: Performed By: #### D IFF CBC, BMP ####[facility] [address] [place] [address] [place] CO2 [Moles/Vol] 34.4 mmol/L High 21.0-31.0 [facility] Comment on above: Performed By: #### D IFF CBC, BMP ####[facility] [id number] [place] [address] [facility] Creatinine [Mass/Vol] 0.40 mg/dL Low 0.70-1.30 [facility] Comment on above: Performed By: #### D IFF CBC, BMP ####[facility] [id number] [place] [address] [place] Creatinine Clr Calc Pharmacy 271.94 [facility] Comment on above: Result Comment: PERF ORMED BY:[address] [place], [place] [phone] MEDICAL DIRECTORNATI LAUREN M.D. Performed By: #### D IFF CBC, BMP ####[address] [place] [address] [place] GFR/1.73 sq M.predicted MDRD (S/P/Bld) [Vol rate/Area] mL/min/{1.73_m2} [facility] Comment on above: Performed By: #### D IFF CBC, BMP ####[address] [place] [address] [facility] Glucose [Mass/Vol] 111 mg/dL High 70-100 [facility] Comment on above: Result Comment: [place] Glucose Reference Range is dependent on time and content of last meal. Glucose of more than 200 mg/dL in a nonstressed, ambulatory subject supports the diagnosis of Diabetes Mellitus. ADA recommended reference range Performed By: #### D IFF CBC, BMP ####[facility] [id number] [place] [address] [place] Potassium [Moles/Vol] 3.9 mmol/L Normal 3.5-5.1 [facility] Comment on above: Performed By: #### D IFF CBC, BMP ####[facility] [id number] [place] [address] [facility] Sodium [Moles/Vol] 138 mmol/L Normal 136-145 [facility] Comment on above: Performed By: #### D IFF CBC, BMP ####[facility] [id number] [address] Urea nitrogen [Mass/Vol] 19 mg/dL Normal 7-25 [facility] Comment on above: Performed By: #### D IFF CBC, BMP ####[address] Blood Cultureon 11-10-2022 Bacteria identified Cx Nom (Bld) NO GROWTH 5 DAYS PERFORMED BY: [facility] [address] [place] [address] PATHOLOGIST NURSERY NURSE NATI LAUREN M.D. [facility] Comment on above: Performed By: #### C UBLD ####[address] Diff and CBCon 11-10-2022 Erythrocyte distribution width (RBC) [Ratio] 13.9 % Normal 12.0-14.8 [facility] Comment on above: Performed By: #### D IFF CBC, BMP ####[address] Hematocrit (Bld) [Volume fraction] 30.5 % Low 38.8-50.0 [facility] Comment on above: Performed By: #### D IFF CBC, BMP ####[address] Hemoglobin (Bld) [Mass/Vol] 10.0 g/dL Low 13.0-17.0 [facility] Comment on above: Performed By: #### D IFF CBC, BMP ####[address] Hypochromasia Moderate Normal [facility] Comment on above: Performed By: #### D IFF CBC, BMP ####[address] MCH (RBC) [Entitic mass] 29.9 pg Normal 27.5-35.2 [facility] Comment on above: Performed By: #### D IFF CBC, BMP ####[address] MCV (RBC) [Entitic vol] 91.2 fL Normal 83.5-101 [facility] Comment on above: Performed By: #### D IFF CBC, BMP ####[address] [place] [address] [facility] Mean Corpuscular HGB Conc 32.8 g/dL Normal 32.5-35.6 [facility] Comment on above: Performed By: #### D IFF CBC, BMP ####[address] [place] [address] [facility] Platelet Estimate Normal Normal Normal [facility] Comment on above: Performed By: #### D IFF CBC, BMP ####[address] [place] [address] [facility] Platelet mean volume (Bld) [Entitic vol] 6.9 fL Normal 6.6-10.1 [facility] Comment on above: Result Comment: PERF ORMED BY:[address] [place], [place] [phone] MEDICAL DIRECTORNAIT LAUREN M.D. Performed By: #### D IFF CBC, BMP ####[address] [address] [facility] Platelet Morphology Normal Normal Normal [facility] Comment on above: Result Comment: PERF ORMED BY:[address] [place], [place] [phone] MEDICAL DIRECTORNATI LAUREN M.D. Performed By: #### D IFF CBC, BMP ####[address] [address] [facility] Platelets (Bld) [#/Vol] 375 10*3/uL Normal 150-450 [facility] Comment on above: Performed By: #### D IFF CBC, BMP ####[address] [address] [facility] RBC (Bld) [#/Vol] 3.34 10*6/uL Low 3.90-5.60 [facility] Comment on above: Performed By: #### D IFF CBC, BMP ####[facility] [id number] [place] [address] [facility] Stomatocytes Slight Normal [facility] Comment on above: Performed By: #### D IFF CBC, BMP ####[facility] [id number] [place] [address] [facility] Target Cells Slight Normal [facility] Comment on above: Performed By: #### D IFF CBC, BMP ####[address] [place] [address] [facility] WBC (Bld) [#/Vol] 14.4 10*3/uL High 4.1-10.5 [facility] Comment on above: Performed By: #### D IFF CBC, BMP ####[facility] Nyr[address] [place] [address] [facility] Dipstick and Microscopicon 0 11-10-2022 Appearance (U) Clear Normal Clear [facility] Comment on above: Order Comment: Name Collection Type:: Jones Catheter Performed By: #### A DDONUAPLUS ####[address] [address] [facility] Bacteria,Urine None Seen Normal None Seen [facility] Comment on above: Order Comment: Name Collection Type:: Jones Catheter Performed By: #### A DDONUAPLUS ####[address] [address] [facility] Bilirubin,Urine Negative Normal Negative [facility] Comment on above: Order Comment: Name Collection Type:: Jones Catheter Performed By: #### A DDONUAPLUS ####[address] [address] [facility] Color (U) Yellow Normal Yellow [facility] Comment on above: Order Comment: Name Collection Type:: Jones Catheter Performed By: #### A DDONUAPLUS ####[address] [address] [facility] Glucose Ql (U) Normal Normal Normal [facility] Comment on above: Order Comment: Name Collection Type:: Jones Catheter Performed By: #### A DDONUAPLUS ####[address] [address] [facility] Hyaline Casts,Urine None Seen Normal 0-8 [facility] Comment on above: Order Comment: Name Collection Type:: Jones Catheter Result Comment: PERF ORMED BY:[address] [place] [place] [phone] MEDICAL DIRECTORNATI LAUREN M.D. Performed By: #### A DDONUAPLUS ####[id number] [facility] Ketones Ql (U) Negative Normal Negative [facility] Comment on above: Order Comment: Name Collection Type:: Jones Catheter Performed By: #### A DDONUAPLUS ####[id number] [facility] Leukocyte esterase Test strip Ql (U) Negative Normal Negative [facility] Comment on above: Order Comment: Name Collection Type:: Jones Catheter Performed By: #### A DDONUAPLUS ####[id number] [facility] Nitrite,Urine Negative Normal Negative [facility] Comment on above: Order Comment: Name Collection Type:: Jones Catheter Performed By: #### A DDONUAPLUS ####[id number] [facility] Occult Blood,Urine Trace High Negative [facility] Comment on above: Order Comment: Name Collection Type:: Jones Catheter Result Comment: PERF ORMED BY:[address] [place] [place], [place] [phone] MEDICAL DIRECTORNATI LAUREN M.D. Performed By: #### A DDONUAPLUS ####[id number] [facility] pH (U) 7.5 [pH] Normal 5.0-9.0 [facility] Comment on above: Order Comment: Name Collection Type:: Jones Catheter Performed By: #### A DDONUAPLUS ####[id number] [facility] Protein,Urine Negative Normal Negative [facility] Comment on above: Order Comment: Name Collection Type:: Jones Catheter Performed By: #### A DDONUAPLUS ####[address] [address] [facility] RBC,Urine 10-19 High 0-4 [facility] Comment on above: Order Comment: Name Collection Type:: Jones Catheter Performed By: #### A DDONUAPLUS ####[address] [address] [facility] Specificy Cyrus,Urine 1.016 Normal 1.001-1.03 0 [facility] Comment on above: Order Comment: Name Collection Type:: Jones Catheter Performed By: #### A DDONUAPLUS ####[address] [address] [facility] Squamous Epithelial Cell,Urine 0-1 Normal 0-2 [facility] Comment on above: Order Comment: Name Collection Type:: Jones Catheter Performed By: #### A DDONUAPLUS ####[address] [address] [facility] Urobilinogen,Urine Normal Normal Normal [facility] Comment on above: Order Comment: Name Collection Type:: Jones Catheter Performed By: #### A DDONUAPLUS ####[address] [address] [facility] WBC,Urine 3-4 Normal 0-4 [facility] Comment on above: Order Comment: Name Collection Type:: Jones Catheter Performed By: #### A DDONUAPLUS ####[address] [address] [facility] Glucose Poct Glucometerson 0 11-10-2022 Glucose [Mass/Vol] 147 mg/dL Normal [facility] Comment on above: Result Comment: [place] Glucose Reference Range is dependent on time and content of last meal. Glucose of more than 200 mg/dL in a nonstressed, ambulatory subject supports the diagnosis of Diabetes Mellitus.PERFORMED BY:[address] [place], [place] [phone] MEDICAL ALEKSANDAR LAUREN M.D. Performed By: #### G LUBETY ####Point of Care testing, Glucose [Mass/Vol] 129 mg/dL Normal [facility] Comment on above: Result Comment: [facility] Glucose Reference Range is dependent on time and content of last meal. Glucose of more than 200 mg/dL in a nonstressed, ambulatory subject supports the diagnosis of Diabetes Mellitus.PERFORMED BY:[address] [place], [place] [phone] MEDICAL DIRECTORNATI LAUREN M.D. Performed By: #### G LUBETY ####Point of Care testing, Glucose [Mass/Vol] 148 mg/dL Normal [facility] Comment on above: Result Comment: [facility] Glucose Reference Range is dependent on time and content of last meal. Glucose of more than 200 mg/dL in a nonstressed, ambulatory subject supports the diagnosis of Diabetes Mellitus.PERFORMED BY:[address] [place], [place] [phone] MEDICAL DIRECTORNATI LAUREN M.D. Performed By: #### G LUBETY ####Point of Care testing, XR chest 1V portableon 11-10 XR chest 1V portable Normal [facility] XR chest 1V portable Normal [facility] Arterial Blood Gason 023 ABG Base Excess 5.4 mmol/L High -3.0-3.0 [facility] Comment on above: Performed By: #### A BG ####Point of Care testing, ABG Frac Inspired O2 40 % [facility] Comment on above: Performed By: #### A BG ####Point of Care testing, ABG Oxygen Content 6.9 mmol/L Normal 6.6-9.7 [facility] Comment on above: Performed By: #### A BG ####Point of Care testing, ABG Oxygen Saturation 95.7 % Normal 95.0-100.0 [facility] Comment on above: Performed By: #### A BG ####Point of Care testing, ABG PCO2 52.4 mm[Hg] Off scale high 35.0-45.0 [facility] Comment on above: Performed By: #### A BG ####Point of Care testing, ABG PEEP 9 [facility] Comment on above: Performed By: #### A BG ####Point of Care testing, ABG PH 7.40 Normal 7.35-7.45 [facility] Comment on above: Performed By: #### A BG ####Point of Care testing, ABG PO2 82.4 mm[Hg] Normal 80.0-100.0 [facility] Comment on above: Performed By: #### A BG ####Point of Care testing, ABG TV 500 mL [facility] Comment on above: Performed By: #### A BG ####Point of Care testing, CO2 [Moles/Vol] 33.0 mmol/L High 23.0-27.0 [facility] Comment on above: Performed By: #### A BG ####Point of Care testing, HCO3 (Bld) [Moles/Vol] 31.4 mmol/L High 23.0-29.0 [facility] Comment on above: Performed By: #### A BG ####Point of Care testing, Respiratory Critical [facility] Comment on above: Result Comment: Crit ical Value called on: 11/09/2022 at 05:00PERFORMED BY:[address] [place], [place] [phone] MEDICAL DIRECTORNATI LAUREN M.D. Performed By: #### A BG ####Point of Care testing, Set Respiratory Rate 20 [facility] Comment on above: Performed By: #### A BG ####Point of Care testing, VBG Draw Site Right Radial [facility] Comment on above: Performed By: #### A BG ####Point of Care testing, Ventilator Mode AC [facility] Comment on above: Performed By: #### A BG ####Point of Care testing, Basic Metabolic Panel Anion gap [Moles/Vol] 9.0 mmol/L Normal 6.0-15.0 [facility] Comment on above: Performed By: #### B MP, CBC ####[address] [place] [address] [facility] Calcium [Mass/Vol] 7.7 mg/dL Low 8.6-10.3 [facility] Comment on above: Performed By: #### B MP, CBC ####[address] [place] [address] [facility] Chloride [Moles/Vol] 99 mmol/L Normal 98-107 [facility] Comment on above: Performed By: #### B MP, CBC ####[address] [place] [address] [facility] CO2 [Moles/Vol] 32.5 mmol/L High 21.0-31.0 [facility] Comment on above: Performed By: #### B MP, CBC ####[address] [address] [facility] Creatinine [Mass/Vol] 0.40 mg/dL Low 0.70-1.30 [facility] Comment on above: Performed By: #### B MP, CBC ####[address] [place] [address] [place] Creatinine Clr Calc Pharmacy 270.64 [facility] Comment on above: Result Comment: PERF ORMED BY:[address] [place], [place] [phone] MEDICAL ALEKSANDAR LAUREN M.D. Performed By: #### B MP, CBC ####[address] [address] [place] GFR/1.73 sq M.predicted MDRD (S/P/Bld) [Vol rate/Area] mL/min/{1.73_m2} [facility] Comment on above: Performed By: #### B MP, CBC ####[address] [address] [place] Glucose [Mass/Vol] 160 mg/dL High 70-100 [facility] Comment on above: Result Comment: [facility] Glucose Reference Range is dependent on time and content of last meal. Glucose of more than 200 mg/dL in a nonstressed, ambulatory subject supports the diagnosis of Diabetes Mellitus. ADA recommended reference range Performed By: #### B MP, CBC ####[facility] [address] [place] [address] [facility] Potassium [Moles/Vol] 4.5 mmol/L Normal 3.5-5.1 [facility] Comment on above: Performed By: #### B MP, CBC ####[facility] [place] [address] [facility] Sodium [Moles/Vol] 136 mmol/L Normal 136-145 [facility] Comment on above: Performed By: #### B MP, CBC ####[facility] [place] [address] [facility] Urea nitrogen [Mass/Vol] 19 mg/dL Normal 7-25 [facility] Comment on above: Performed By: #### B MP, CBC ####[address] [place] [address] [facility] Complete Blood Count Auto Di ffon 11-09-2022 Basophils (Bld) [#/Vol] 0.0 10*3/uL Normal 0.0-0.2 [facility] Comment on above: Result Comment: PERF ORMED BY:[address] [place], [place] [phone] MEDICAL DIRECTORNATI LAUREN M.D. Performed By: #### B MP, CBC ####[address] [address] [facility] Basophils/100 WBC (Bld) 0.1 % Normal . [facility] Comment on above: Performed By: #### B MP, CBC ####[facility] [id number] [place] [address] [facility] Eosinophils (Bld) [#/Vol] 0.0 10*3/uL Normal 0.0-0.45 [facility] Comment on above: Performed By: #### B MP, CBC ####[address] Eosinophils/100 WBC (Bld) 0.0 % Normal . [facility] Comment on above: Performed By: #### B MP, CBC ####[address] Erythrocyte distribution width (RBC) [Ratio] 14.2 % Normal 12.0-14.8 [facility] Comment on above: Performed By: #### B MP, CBC ####[address] Hematocrit (Bld) [Volume fraction] 31.0 % Low 38.8-50.0 [facility] Comment on above: Performed By: #### B MP, CBC ####[address] Hemoglobin (Bld) [Mass/Vol] 10.3 g/dL Low 13.0-17.0 [facility] Comment on above: Performed By: #### B MP, CBC ####[address] Lymphocytes (Bld) [#/Vol] 0.7 10*3/uL Low 1.00-4.8 [facility] Comment on above: Performed By: #### B MP, CBC ####[address] Lymphocytes/100 WBC (Bld) 4.6 % Normal . [facility] Comment on above: Performed By: #### B MP, CBC ####[address] MCH (RBC) [Entitic mass] 30.4 pg Normal 27.5-35.2 [facility] Comment on above: Performed By: #### B MP, CBC ####[address] MCV (RBC) [Entitic vol] 91.1 fL Normal 83.5-101 [facility] Comment on above: Performed By: #### B MP, CBC ####[address] [place] [address] [facility] Mean Corpuscular HGB Conc 33.4 g/dL Normal 32.5-35.6 [facility] Comment on above: Performed By: #### B MP, CBC ####[id number] [facility] Monocytes (Bld) [#/Vol] 0.8 10*3/uL Normal 0.0-0.8 [facility] Comment on above: Performed By: #### B MP, CBC ####[id number] [facility] Monocytes/100 WBC (Bld) 5.2 % Normal . [facility] Comment on above: Performed By: #### B MP, CBC ####[address] Neutrophils (Bld) [#/Vol] 13.1 10*3/uL High 1.8-7.7 [facility] Comment on above: Performed By: #### B MP, CBC ####[id number] [facility] Neutrophils/100 WBC (Bld) 90.1 % Normal . [facility] Comment on above: Performed By: #### B MP, CBC ####[id number] [facility] NRBC% 0.1 /100{WBC} Normal 0-0.5 [facility] Comment on above: Performed By: #### B MP, CBC ####[id number] [facility] Platelet mean volume (Bld) [Entitic vol] 7.0 fL Normal 6.6-10.1 [facility] Comment on above: Performed By: #### B MP, CBC ####[id number] [facility] Platelets (Bld) [#/Vol] 408 10*3/uL Normal 150-450 [facility] Comment on above: Performed By: #### B MP, CBC ####[address] [place] [address] [facility] RBC (Bld) [#/Vol] 3.40 10*6/uL Low 3.90-5.60 [facility] Comment on above: Performed By: #### B MP, CBC ####[address] [place] [address] [facility] WBC (Bld) [#/Vol] 14.6 10*3/uL High 4.1-10.5 [facility] Comment on above: Performed By: #### B MP, CBC ####[address] [address] [facility] Glucose Poct Glucometerson 0 - Commemt1 Glu2: Cleaned Meter [facility] Comment on above: Result Comment: PERF ORMED BY:[address] [place], [place] [phone] MEDICAL DIRECTORNATI LAUREN M.D. Performed By: #### G LULS ####Point of Care testing, Glucose [Mass/Vol] 122 mg/dL Normal [facility] Comment on above: Result Comment: [place] Glucose Reference Range is dependent on time and content of last meal. Glucose of more than 200 mg/dL in a nonstressed, ambulatory subject supports the diagnosis of Diabetes Mellitus. Performed By: #### G LULS ####Point of Care testing, Commemt1 Glu2: Cleaned Meter Normal [facility] Comment on above: Result Comment: PERF ORMED BY:[address] [place], [place] [phone] MEDICAL DIRECTORNATI LAUREN M.D. Performed By: #### G LULS ####Point of Care testing, Glucose [Mass/Vol] 176 mg/dL Normal [facility] Comment on above: Result Comment: [place] Glucose Reference Range is dependent on time and content of last meal. Glucose of more than 200 mg/dL in a nonstressed, ambulatory subject supports the diagnosis of Diabetes Mellitus. Performed By: #### G LULS ####Point of Care testing, Commemt1 Glu2: Cleaned Meter Normal [facility] Comment on above: Result Comment: PERF ORMED BY:[address] [place], [place] [phone] MEDICAL ALEKSANDAR LAUREN M.D. Performed By: #### G LULS ####Point of Care testing, Glucose [Mass/Vol] 149 mg/dL Normal [facility] Comment on above: Result Comment: [place] [facility] Glucose Reference Range is dependent on time and content of last meal. Glucose of more than 200 mg/dL in a nonstressed, ambulatory subject supports the diagnosis of Diabetes Mellitus. Performed By: #### G LULS ####Point of Care testing, Commemt1 Glu2: Cleaned Meter [facility] Comment on above: Result Comment: PERF ORMED BY:[address] [place], [place] [phone] MEDICAL ALEKSANDAR LAUREN M.D. Performed By: #### G LULS ####Point of Care testing, Glucose [Mass/Vol] 159 mg/dL Normal [facility] Comment on above: Result Comment: [place] [facility] Glucose Reference Range is dependent on time and content of last meal. Glucose of more than 200 mg/dL in a nonstressed, ambulatory subject supports the diagnosis of Diabetes Mellitus. Performed By: #### G LULS ####Point of Care testing, Triglycerideson 11-09-2022 Triglyceride [Mass/Vol] 392 mg/dL High 0-149 [facility] Comment on above: Result Comment: TRIG ATP III CLASSIFICATION TRIG less than 150 mg/dL Normal TRIG 150-199 mg/dL Borderline high TRIG 200-500 mg/dL High TRIG greater than 500 mg/dL Very high Standard traceable to the Center for Disease Conrtrol and Prevention (CDC) test method.PERFORMED BY:[address] [place] [place], [place] [phone] MEDICAL ALEKSANDAR LAUREN M.D. Performed By: #### T RIG ####[address] [address] [facility] XR chest 1V portableon 11-09 XR chest 1V portable Normal [facility] XR chest 1V portable Normal [facility] Arterial Blood Gason 023 ABG Base Excess 4.1 mmol/L High -3.0-3.0 [facility] Comment on above: Performed By: #### A BG ####Point of Care testing, ABG Frac Inspired O2 80 % [facility] Comment on above: Performed By: #### A BG ####Point of Care testing, ABG Oxygen Content 7.5 mmol/L Normal 6.6-9.7 [facility] Comment on above: Performed By: #### A BG ####Point of Care testing, ABG Oxygen Saturation 97.9 % Normal 95.0-100.0 [facility] Comment on above: Performed By: #### A BG ####Point of Care testing, ABG PCO2 55.6 mm[Hg] Off scale high 35.0-45.0 [facility] Comment on above: Performed By: #### A BG ####Point of Care testing, ABG PEEP 12 [facility] Comment on above: Performed By: #### A BG ####Point of Care testing, ABG PH 7.36 Normal 7.35-7.45 [facility] Comment on above: Performed By: #### A BG ####Point of Care testing, ABG PO2 111.2 mm[Hg] High 80.0-100.0 [facility] Comment on above: Performed By: #### A BG ####Point of Care testing, ABG TV 500 mL [facility] Comment on above: Performed By: #### A BG ####Point of Care testing, CO2 [Moles/Vol] 32.5 mmol/L High 23.0-27.0 [facility] Comment on above: Performed By: #### A BG ####Point of Care testing, HCO3 (Bld) [Moles/Vol] 30.8 mmol/L High 23.0-29.0 [facility] Comment on above: Performed By: #### A BG ####Point of Care testing, Respiratory Critical [facility] Comment on above: Result Comment: Crit ical Value called on: 11/08/2022 at 05:00PERFORMED BY:[facility] [place], [place] [phone] MEDICAL DIRECTORNATI LAUREN M.D. Performed By: #### A BG ####Point of Care testing, Set Respiratory Rate 20 [facility] Comment on above: Performed By: #### A BG ####Point of Care testing, VBG Draw Site Left Radial [facility] Comment on above: Performed By: #### A BG ####Point of Care testing, Ventilator Mode AC [facility] Comment on above: Performed By: #### A BG ####Point of Care testing, Basic Metabolic Panelon 05 Anion gap [Moles/Vol] 10.0 mmol/L Normal 6.0-15.0 [facility] Comment on above: Performed By: #### B MP, SCAN CBC ####[facility] [address] [place] [address] [place] Calcium [Mass/Vol] 8.2 mg/dL Low 8.6-10.3 [facility] Comment on above: Performed By: #### B MP, SCAN CBC ####[facility] [id number] [place] [address] [place] Chloride [Moles/Vol] 99 mmol/L Normal 98-107 [facility] Comment on above: Performed By: #### B MP, SCAN CBC ####[facility] Ute5252 [place] [address] [place] CO2 [Moles/Vol] 29.8 mmol/L Normal 21.0-31.0 [facility] Comment on above: Performed By: #### B MP, SCAN CBC ####[facility] Edg[address]471 [place] [address] [place] Creatinine [Mass/Vol] 0.43 mg/dL Low 0.70-1.30 [facility] Comment on above: Performed By: #### B MP, SCAN CBC ####[facility] Qtx3034 [place] [address] [place] Creatinine Clr Calc Pharmacy 251.76 Normal [facility] Comment on above: Result Comment: PERF ORMED BY:[place] [address] [place], [place] [phone] MEDICAL ALEKSANDAR LAUREN M.D. Performed By: #### B MP, SCAN CBC ####[facility] Iyq9909 [place] [address] [place] GFR/1.73 sq M.predicted MDRD (S/P/Bld) [Vol rate/Area] mL/min/{1.73_m2} Normal [facility] Comment on above: Performed By: #### B MP, SCAN CBC ####[facility] [id number] [place] [address] [place] Glucose [Mass/Vol] 140 mg/dL High 70-100 [facility] Comment on above: Result Comment: [facility] Glucose Reference Range is dependent on time and content of last meal. Glucose of more than 200 mg/dL in a nonstressed, ambulatory subject supports the diagnosis of Diabetes Mellitus. ADA recommended reference range Performed By: #### B MP, SCAN CBC ####[facility] [id number] [place] [address] [facility] Potassium [Moles/Vol] 4.8 mmol/L Normal 3.5-5.1 [facility] Comment on above: Performed By: #### B MP, SCAN CBC ####[facility] [place] [address] [place] Sodium [Moles/Vol] 134 mmol/L Low 136-145 [facility] Comment on above: Performed By: #### B MP, SCAN CBC ####[facility] Qfh3701 [place] [address] [facility] Urea nitrogen [Mass/Vol] 22 mg/dL Normal 7-25 [facility] Comment on above: Performed By: #### B MP, SCAN CBC ####[facility] Rap[address]159 [place] [address] [facility] Glucose Poct Glucometerson 0 11-08-2022 Glucose [Mass/Vol] 135 mg/dL Normal [facility] Comment on above: Result Comment: [facility] Glucose Reference Range is dependent on time and content of last meal. Glucose of more than 200 mg/dL in a nonstressed, ambulatory subject supports the diagnosis of Diabetes Mellitus.PERFORMED BY:[facility] [place], [place] [phone] MEDICAL DIRECTORNATI LAUREN M.D. Performed By: #### G LULS ####Point of Care testing, HIV 1/O/2 Antigen/Antibodyon 11-08-2022 HIV Screen 4th Generation Non-Reactive Normal Non Reactive [facility] Comment on above: Order Comment: Dr. christopher gil putting in a chest tube Result Comment: HIV Negative HIV-1/HIV-2 antibodies and HIV-1 p24 antigen were NOT detected. There is no laboratory evidence of HIV infection. Performed at: [facility] [address] [place], [place] [id number] Lumber Yard Worker: Crow Frost PhD, Phone: [phone] BY:[place] [address] [address] [place], [place] [phone] MEDICAL DIRECTORNATI LAUREN M.D. Performed By: #### H IV SCREEN ####[facility] , HIV 1 and HIV-2 antibody ass ay with HIV-1 p24 antigen detectionOrdered By: Sanjay Holt on 11-08-2022 HIV 1+2 Ab+HIV1 p24 Ag IA Ql Non-Reactive Non Reactive [facility] Comment on above: HIV NegativeHIV-1/HI V-2 antibodies and HIV-1 p24 antigen were NOTdetected. There is no laboratory evidence of HIV infection.Performed at: [facility] [address] [id number] Director: Crow Frost PhD, Phone: [phone] Scan and CBCon 11-08-2022 Basophils (Bld) [#/Vol] 0.0 10*3/uL Normal 0.0-0.2 [facility] Comment on above: Performed By: #### B MP, SCAN CBC ####[place] [id number] [facility] Basophils/100 WBC (Bld) 0.2 % Normal . [facility] Comment on above: Performed By: #### B MP, SCAN CBC ####[place] [id number] [facility] Eosinophils (Bld) [#/Vol] 0.0 10*3/uL Normal 0.0-0.45 [facility] Comment on above: Performed By: #### B MP, SCAN CBC ####[address] Eosinophils/100 WBC (Bld) 0.0 % Normal . [facility] Comment on above: Performed By: #### B MP, SCAN CBC ####[address] Erythrocyte distribution width (RBC) [Ratio] 14.0 % Normal 12.0-14.8 [facility] Comment on above: Performed By: #### B MP, SCAN CBC ####[address] Hematocrit (Bld) [Volume fraction] 32.9 % Low 38.8-50.0 [facility] Comment on above: Performed By: #### B MP, SCAN CBC ####[place] [id number] [facility] Hemoglobin (Bld) [Mass/Vol] 10.7 g/dL Low 13.0-17.0 [facility] Comment on above: Performed By: #### B MP, SCAN CBC ####[place] [id number] [facility] Hypochromasia Moderate Normal [facility] Comment on above: Performed By: #### B MP, SCAN CBC ####[address] Lymphocytes (Bld) [#/Vol] 0.7 10*3/uL Low 1.00-4.8 [facility] Comment on above: Performed By: #### B MP, SCAN CBC ####[place] [address] [place] [address] [facility] Lymphocytes/100 WBC (Bld) 3.7 % Normal . [facility] Comment on above: Performed By: #### B MP, SCAN CBC ####[place] [address] [place] [address] [facility] MCH (RBC) [Entitic mass] 29.9 pg Normal 27.5-35.2 [facility] Comment on above: Performed By: #### B MP, SCAN CBC ####[place] [address] [place] [address] [facility] MCV (RBC) [Entitic vol] 92.0 fL Normal 83.5-101 [facility] Comment on above: Performed By: #### B MP, SCAN CBC ####[place] [id number] [facility] Mean Corpuscular HGB Conc 32.5 g/dL Normal 32.5-35.6 [facility] Comment on above: Performed By: #### B MP, SCAN CBC ####[address] [address] [place] Monocytes (Bld) [#/Vol] 0.8 10*3/uL Normal 0.0-0.8 [facility] Comment on above: Performed By: #### B MP, SCAN CBC ####[place] [id number] [facility] Monocytes/100 WBC (Bld) 4.3 % Normal . [facility] Comment on above: Performed By: #### B MP, SCAN CBC ####[address] [address] [place] Neutrophils (Bld) [#/Vol] 16.2 10*3/uL High 1.8-7.7 [facility] Comment on above: Performed By: #### B MP, SCAN CBC ####[place] [address] [place] [address] [facility] Neutrophils/100 WBC (Bld) 91.8 % Normal . [facility] Comment on above: Performed By: #### B MP, SCAN CBC ####[place] [address] [place] [address] [facility] NRBC% 0.1 /100{WBC} Normal 0-0.5 [facility] Comment on above: Performed By: #### B MP, SCAN CBC ####[address] [address] [facility] Platelet Estimate Normal Normal Normal [facility] Comment on above: Performed By: #### B MP, SCAN CBC ####[address] [address] [facility] Platelet mean volume (Bld) [Entitic vol] 7.4 fL Normal 6.6-10.1 [facility] Comment on above: Performed By: #### B MP, SCAN CBC ####[address] [address] [facility] Platelet Morphology Normal Normal Normal [facility] Comment on above: Result Comment: PERF ORMED BY:[address] [place], [place] [phone] MEDICAL ALEKSANDAR LAUREN M.D. Performed By: #### B MP, SCAN CBC ####[address] [address] [facility] Platelets (Bld) [#/Vol] 391 10*3/uL Normal 150-450 [facility] Comment on above: Performed By: #### B MP, SCAN CBC ####[address] [address] [facility] Polychromasia Moderate Normal [facility] Comment on above: Performed By: #### B MP, SCAN CBC ####[address] [address] [facility] RBC (Bld) [#/Vol] 3.58 10*6/uL Low 3.90-5.60 [facility] Comment on above: Performed By: #### B MP, SCAN CBC ####[address] [address] [facility] WBC (Bld) [#/Vol] 17.7 10*3/uL High 4.1-10.5 [facility] Comment on above: Performed By: #### B MP, SCAN CBC ####[facility] [address] [place] [address] [facility] XR chest 1V portableon 11-08 XR chest 1V portable Normal [facility] XR chest 1V portable Normal [facility] Arterial Blood Gason 023 ABG Base Excess 1.0 mmol/L Normal -3.0-3.0 [facility] Comment on above: Performed By: #### A BG ####Point of Care testing, ABG Frac Inspired O2 100 % [facility] Comment on above: Performed By: #### A BG ####Point of Care testing, ABG Oxygen Content 7.4 mmol/L Normal 6.6-9.7 [facility] Comment on above: Performed By: #### A BG ####Point of Care testing, ABG Oxygen Saturation 98.0 % Normal 95.0-100.0 [facility] Comment on above: Performed By: #### A BG ####Point of Care testing, ABG PCO2 60.2 mm[Hg] Off scale high 35.0-45.0 [facility] Comment on above: Performed By: #### A BG ####Point of Care testing, ABG PEEP 15 [facility] Comment on above: Performed By: #### A BG ####Point of Care testing, ABG PH 7.30 Low 7.35-7.45 [facility] Comment on above: Performed By: #### A BG ####Point of Care testing, ABG PO2 115.1 mm[Hg] High 80.0-100.0 [facility] Comment on above: Performed By: #### A BG ####Point of Care testing, ABG TV 500 mL [facility] Comment on above: Performed By: #### A BG ####Point of Care testing, CO2 [Moles/Vol] 30.5 mmol/L High 23.0-27.0 [facility] Comment on above: Performed By: #### A BG ####Point of Care testing, HCO3 (Bld) [Moles/Vol] 28.6 mmol/L Normal 23.0-29.0 [facility] Comment on above: Performed By: #### A BG ####Point of Care testing, Respiratory Critical [facility] Comment on above: Result Comment: Crit ical Value called on: 11/07/2022 at 09:15PERFORMED BY:[facility] [place], [place] [phone] MEDICAL DIRECTORNATI LAUREN M.D. Performed By: #### A BG ####Point of Care testing, Set Respiratory Rate 18 [facility] Comment on above: Performed By: #### A BG ####Point of Care testing, VBG Draw Site Right Radial [facility] Comment on above: Performed By: #### A BG ####Point of Care testing, Ventilator Mode AC [facility] Comment on above: Performed By: #### A BG ####Point of Care testing, ABG Base Excess 1.8 mmol/L Normal -3.0-3.0 [facility] Comment on above: Performed By: #### A BG ####Point of Care testing, ABG Frac Inspired O2 100 % [facility] Comment on above: Performed By: #### A BG ####Point of Care testing, ABG Oxygen Content 7.6 mmol/L Normal 6.6-9.7 [facility] Comment on above: Performed By: #### A BG ####Point of Care testing, ABG Oxygen Saturation 91.2 % Low 95.0-100.0 [facility] Comment on above: Performed By: #### A BG ####Point of Care testing, ABG PCO2 41.8 mm[Hg] Normal 35.0-45.0 [facility] Comment on above: Performed By: #### A BG ####Point of Care testing, ABG PEEP 10 [facility] Comment on above: Performed By: #### A BG ####Point of Care testing, ABG PH 7.42 Normal 7.35-7.45 [facility] Comment on above: Performed By: #### A BG ####Point of Care testing, ABG PO2 56.9 mm[Hg] Low 80.0-100.0 [facility] Comment on above: Performed By: #### A BG ####Point of Care testing, ABG Pressure Support 8.0 Normal [facility] Comment on above: Performed By: #### A BG ####Point of Care testing, CO2 [Moles/Vol] 27.7 mmol/L High 23.0-27.0 [facility] Comment on above: Performed By: #### A BG ####Point of Care testing, HCO3 (Bld) [Moles/Vol] 26.4 mmol/L Normal 23.0-29.0 [facility] Comment on above: Performed By: #### A BG ####Point of Care testing, Oxygen Device BiPAP [facility] Comment on above: Performed By: #### A BG ####Point of Care testing, Respiratory Critical [facility] Comment on above: Result Comment: Crit ical Value called on: 11/07/2022 at 05:41PERFORMED BY:[place] [address] [place], [place] [phone] MEDICAL DIRECTORNATI LAUREN M.D. Performed By: #### A BG ####Point of Care testing, VBG Draw Site Right Radial [facility] Comment on above: Performed By: #### A BG ####Point of Care testing, Bacteria identification by s terile body fluid cultureOrdered By: Sanjay Holt on 11-07-2022 Bacteria identified Sterile body fluid culture Nom (Unsp spec) Not indicated. . [facility] Bacteria identification dete ction in isolate by cultureOrdered By: Sanjay Holt on 11-07-2022 Bacteria Identification Cx Ql (Isol) Not indicated. . [facility] Comprehensive Metabolic Pane tiago 11-07-2022 Albumin [Mass/Vol] 2.9 g/dL Low 3.5-5.7 [facility] Comment on above: Performed By: #### C MP, SCAN CBC ####[place] [address] [place] [address] [facility] Albumin/Globulin [Mass ratio] 0.9 {ratio} Normal [facility] Comment on above: Performed By: #### C MP, SCAN CBC ####[place] [address] [place] [address] [facility] ALP [Catalytic activity/Vol] 107 U/L High 34-104 [facility] Comment on above: Performed By: #### C MP, SCAN CBC ####[facility] Syd[address]23 [place] [address] [facility] ALT [Catalytic activity/Vol] 38 U/L Normal 7-52 [facility] Comment on above: Performed By: #### C MP, SCAN CBC ####[address] [address] [facility] Anion gap [Moles/Vol] 11.7 mmol/L Normal 6.0-15.0 [facility] Comment on above: Performed By: #### C MP, SCAN CBC ####[address] [address] [facility] AST [Catalytic activity/Vol] 32 U/L Normal 13-39 [facility] Comment on above: Performed By: #### C MP, SCAN CBC ####[address] [address] [facility] Bilirubin [Mass/Vol] 0.5 mg/dL Normal 0.3-1.0 [facility] Comment on above: Performed By: #### C MP, SCAN CBC ####[facility] [address] [place] [address] [facility] Calcium [Mass/Vol] 8.4 mg/dL Low 8.6-10.3 [facility] Comment on above: Performed By: #### C MP, SCAN CBC ####[address] [address] [facility] Chloride [Moles/Vol] 99 mmol/L Normal 98-107 [facility] Comment on above: Performed By: #### C MP, SCAN CBC ####[facility] Urv[address]37 [place] [address] [facility] CO2 [Moles/Vol] 27.6 mmol/L Normal 21.0-31.0 [facility] Comment on above: Performed By: #### C MP, SCAN CBC ####[facility] Ncq[address] [place] [address] [facility] Creatinine [Mass/Vol] 0.55 mg/dL Low 0.70-1.30 [facility] Comment on above: Performed By: #### C MP, SCAN CBC ####[facility] Gbs[address]170 [place] [address] [place] Creatinine Clr Calc Pharmacy 197.78 [facility] Comment on above: Result Comment: PERF ORMED BY:[address] [place], [place] [phone] MEDICAL DIRECTORNATI LAUREN M.D. Performed By: #### C MP, SCAN CBC ####[facility] Qdd4001 [place] [address] [facility] GFR/1.73 sq M.predicted MDRD (S/P/Bld) [Vol rate/Area] mL/min/{1.73_m2} [facility] Comment on above: Performed By: #### C MP, SCAN CBC ####[facility] Xbt9532 [place] [address] [facility] Globulin (S) [Mass/Vol] 3.4 g/dL [facility] Comment on above: Performed By: #### C MP, SCAN CBC ####[facility] Uls9722 [place] [address] [facility] Glucose [Mass/Vol] 128 mg/dL High 70-100 [facility] Comment on above: Result Comment: [facility] Glucose Reference Range is dependent on time and content of last meal. Glucose of more than 200 mg/dL in a nonstressed, ambulatory subject supports the diagnosis of Diabetes Mellitus. ADA recommended reference range Performed By: #### C MP, SCAN CBC ####[facility] Frp[address]307 [place] [address] [facility] Potassium [Moles/Vol] 4.3 mmol/L Normal 3.5-5.1 [facility] Comment on above: Performed By: #### C MP, SCAN CBC ####[facility] [address] [place] [address] [facility] Protein [Mass/Vol] 6.3 g/dL Low 6.4-8.9 [facility] Comment on above: Performed By: #### C MP, SCAN CBC ####[facility] Jlt8125 [place] [address] [facility] Sodium [Moles/Vol] 134 mmol/L Low 136-145 [facility] Comment on above: Performed By: #### C MP, SCAN CBC ####[facility] Ogl[address]116 [place] [address] [facility] Urea nitrogen [Mass/Vol] 20 mg/dL Normal 7-25 [facility] Comment on above: Performed By: #### C MP, SCAN CBC ####[facility] Kxs6054 [place] [address] [place] ECG 12 lead ECGon 11-07-2022 ECG 12 lead ECG Normal [facility] ECG 12 lead ECG Normal [facility] ECG 12 lead ECG Normal [facility] Legionella Pneu 1-6 Antibodi eson 11-07-2022 Legionella Pneu 1-6 Antibodies <0.91 Normal 0.00-0.90 [facility] Comment on above: Order Comment: SPECI MEN HEMOLYZED NEEDS REDRAWN PLEASE Result Comment: Nega tive <0.91 Equivocal 0.91 - 1.09 Positive >1.09 This assay detects IgG/IgM/IgA antibodies to L. pneumophila Groups 1-6 by the EIA method. Performed at: [address] [id number] [employer] Worker: Marla Bravo MD, Phone: [phone] BY:[address] [place], [place] [phone] MEDICAL DIRECTORNATI LAUREN M.D. Performed By: #### L EG PNE AB ####[facility] , Legionella Pneumophilia Ag, Uron 11-07-2022 Legionella Pneumophilia Ag, Ur Negative Normal Negative [facility] Comment on above: Order Comment: SOURC E OF SPECIMEN: jones Result Comment: Pres umptive negative for L. pneumophila serogroup 1 antigen in urine, suggesting no recent or current infection. Legionnaires' disease cannot be ruled out since other serogroups and species may also cause disease. Performed at: [address] [id number] [employer] Worker: Marla Bravo MD, Phone: [phone] BY:[place] [address] [place], [place] [phone] MEDICAL DIRECTORNATI LAUREN M.D. Performed By: #### U RLEGIONELLA ####[facility] , Legionella pneumophila type 1-6 antibody assayOrdered By: Sanjay Holt on 11-07-2022 L. pneumophila 1+2+3+4+5+6 Ab (S) [Titer] <0.91 OD ratio 0.00-0.90 [facility] Comment on above: Negative <0.91 Equiv ocal 0.91 - 1.09 Positive >1.09 This assay detects IgG/IgM/IgA antibodies to L. pneumophila Groups 1-6 by the EIA method.Performed at: [address] [id number] Director: Marla Bravo MD, Phone: [phone] Macrocytes LM Ql (Bld)Ordere d By: Netta Wiseman on 11-07-2022 Macrocytes Ql (Bld) Slight [facility] No Panel InformationOrdered By: Sanjay Holt on 11-07-2022 Strep pneumoniae Special Info See comment . [facility] Comment on above: [employer] standards require aculture to be performed on CSF specimens submitted forbacterial antigen testing. (CAP [id number]) Urine specimenswill not be cultured.Performed at: [address] [id number] Director: Marla Bravo MD, Phone: [phone] No Panel InformationOrdered By: Netta Wiseman on 11-07-2022 Blood Gas Pressure Support 8.0 cmH2O [facility] Oxygen Delivery Device Bipap [facility] Scan and CBCon 11-07-2022 Anisocytosis Ql (Bld) Slight Normal [facility] Comment on above: Performed By: #### C MP, SCAN CBC ####[address] Basophils (Bld) [#/Vol] 0.1 10*3/uL Normal 0.0-0.2 [facility] Comment on above: Performed By: #### C MP, SCAN CBC ####[address] Basophils/100 WBC (Bld) 0.3 % Normal . [facility] Comment on above: Performed By: #### C MP, SCAN CBC ####[address] Eosinophils (Bld) [#/Vol] 0.0 10*3/uL Normal 0.0-0.45 [facility] Comment on above: Performed By: #### C MP, SCAN CBC ####[address] Eosinophils/100 WBC (Bld) 0.0 % Normal . [facility] Comment on above: Performed By: #### C MP, SCAN CBC ####[address] Erythrocyte distribution width (RBC) [Ratio] 14.0 % Normal 12.0-14.8 [facility] Comment on above: Performed By: #### C MP, SCAN CBC ####[address] Hematocrit (Bld) [Volume fraction] 35.1 % Low 38.8-50.0 [facility] Comment on above: Performed By: #### C MP, SCAN CBC ####[address] Hemoglobin (Bld) [Mass/Vol] 11.5 g/dL Low 13.0-17.0 [facility] Comment on above: Performed By: #### C MP, SCAN CBC ####[address] Hypochromasia Slight Normal [facility] Comment on above: Performed By: #### C MP, SCAN CBC ####[address] Lymphocytes (Bld) [#/Vol] 1.1 10*3/uL Normal 1.00-4.8 [facility] Comment on above: Performed By: #### C MP, SCAN CBC ####[address] Lymphocytes/100 WBC (Bld) 3.3 % Normal . [facility] Comment on above: Performed By: #### C MP, SCAN CBC ####[address] Macrocytosis Slight Normal [facility] Comment on above: Performed By: #### C MP, SCAN CBC ####[address] MCH (RBC) [Entitic mass] 29.8 pg Normal 27.5-35.2 [facility] Comment on above: Performed By: #### C MP, SCAN CBC ####[address] MCV (RBC) [Entitic vol] 91.0 fL Normal 83.5-101 [facility] Comment on above: Performed By: #### C MP, SCAN CBC ####[address] Mean Corpuscular HGB Conc 32.8 g/dL Normal 32.5-35.6 [facility] Comment on above: Performed By: #### C MP, SCAN CBC ####[address] Monocytes (Bld) [#/Vol] 0.8 10*3/uL Normal 0.0-0.8 [facility] Comment on above: Performed By: #### C MP, SCAN CBC ####[address] [address] [facility] Monocytes/100 WBC (Bld) 2.4 % Normal . [facility] Comment on above: Performed By: #### C MP, SCAN CBC ####[address] [address] [facility] Neutrophils (Bld) [#/Vol] 30.7 10*3/uL High 1.8-7.7 [facility] Comment on above: Performed By: #### C MP, SCAN CBC ####[place] [id number] [facility] Neutrophils/100 WBC (Bld) 94.0 % Normal . [facility] Comment on above: Performed By: #### C MP, SCAN CBC ####[address] [address] [facility] NRBC% 0.1 /100{WBC} Normal 0-0.5 [facility] Comment on above: Performed By: #### C MP, SCAN CBC ####[address] [address] [facility] Platelet Estimate Normal Normal Normal [facility] Comment on above: Performed By: #### C MP, SCAN CBC ####[address] [address] [address] [facility] Platelet mean volume (Bld) [Entitic vol] 7.9 fL Normal 6.6-10.1 [facility] Comment on above: Performed By: #### C MP, SCAN CBC ####[address] [address] [facility] Platelet Morphology Normal Normal Normal [facility] Comment on above: Result Comment: PERF ORMED BY:[address] [place], [place] [phone] MEDICAL ALEKSANDAR LAUREN M.D. Performed By: #### C MP, SCAN CBC ####[address] [place] [address] [place] Platelets (Bld) [#/Vol] 409 10*3/uL Normal 150-450 [facility] Comment on above: Performed By: #### C MP, SCAN CBC ####[address] Polychromasia Slight Normal [facility] Comment on above: Performed By: #### C MP, SCAN CBC ####[address] RBC (Bld) [#/Vol] 3.85 10*6/uL Low 3.90-5.60 [facility] Comment on above: Performed By: #### C MP, SCAN CBC ####[address] Stomatocytes Slight Normal [facility] Comment on above: Performed By: #### C MP, SCAN CBC ####[address] WBC (Bld) [#/Vol] 32.6 10*3/uL High 4.1-10.5 [facility] Comment on above: Performed By: #### C MP, SCAN CBC ####[address] Specimen source identifiedOr dered By: Sanjay Holt on 11-07-2022 Specimen source Nom (Unsp spec) Urine . [facility] Strep Pneumoniae Ag, Uron Body Fluid Culture Not indicated. Normal . [facility] Comment on above: Order Comment: SOURC E OF SPECIMEN: [email or web address] Performed By: #### U R STP AG ####[facility] , Organism ID Not indicated. Normal . [facility] Comment on above: Order Comment: SOURC E OF SPECIMEN: [email or web address] Performed By: #### U R STP AG ####[facility] , Please Note: Normal . [facility] Comment on above: Order Comment: SOURC E OF SPECIMEN: [email or web address] Result Comment: Thomas ege of [place] Pathologists standards require a culture to be performed on CSF specimens submitted for bacterial antigen testing. (CAP [id number]) Urine specimens will not be cultured. Performed at: [address] [id number] [employer] Worker: Marla Barvo MD, Phone: [phone] BY:[facility] [place], [place] [phone] MEDICAL DIRECTORNATI LAUREN M.D. Performed By: #### U R STP AG ####[facility] , Specimen source Nom (Unsp spec) Urine Normal . [facility] Comment on above: Order Comment: SOURC E OF SPECIMEN: [email or web address] Performed By: #### U R STP AG ####[facility] , Streptococcus Pneumoniae Ag Negative Normal Negative [facility] Comment on above: Order Comment: SOURC E OF SPECIMEN: [email or web address] Performed By: #### U R STP AG ####[facility] , Streptococcus pneumoniae ant igen detectionOrdered By: Sanjay Holt on 11-07-2022 S. pneumoniae Ag Ql (Unsp spec) Negative Negative [facility] Triglycerideson 11-07-2022 Triglyceride [Mass/Vol] 222 mg/dL High 0-149 [facility] Comment on above: Order Comment: Comme nt please run off blood drawn this morning Result Comment: TRIG ATP III CLASSIFICATION TRIG less than 150 mg/dL Normal TRIG 150-199 mg/dL Borderline high TRIG 200-500 mg/dL High TRIG greater than 500 mg/dL Very high Standard traceable to the Center for Disease Conrtrol and Prevention (CDC) test method.PERFORMED BY:[address] [place], [place] [phone] MEDICAL DIRECTORNATI LAUREN M.D. Performed By: #### T RIG ####[facility] Axd1808 [place] [address] [facility] Urine Legionella antigen det ectionOrdered By: Sanjay Holt on 11-07-2022 Legionella sp Ag Ql (U) Negative Negative [facility] Comment on above: Presumptive negative for L. pneumophila serogroup 1 antigenin urine, suggesting no recent or current infection.Legionnaires' disease cannot be ruled out since otherserogroups and species may also cause disease.Performed at: [facility] [address] [id number] Director: Marla Bravo MD, Phone: [phone] XR chest 1V portableon 11-07 XR chest 1V portable [facility] XR chest 1V portable [facility] CT chest w conon 11-06-2022 CT chest w con [facility] Comprehensive Metabolic Pane tiago 11-06-2022 Albumin [Mass/Vol] 2.8 g/dL Low 3.5-5.7 [facility] Comment on above: Order Comment: draw at 0500 Performed By: #### C MP, SCAN CBC ####[facility] [id number] [place] [address] [facility] Albumin/Globulin [Mass ratio] 0.8 {ratio} [facility] Comment on above: Order Comment: draw at 0500 Performed By: #### C MP, SCAN CBC ####[facility] [id number] [place] [address] [facility] ALP [Catalytic activity/Vol] 96 U/L Normal 34-104 [facility] Comment on above: Order Comment: draw at 0500 Performed By: #### C MP, SCAN CBC ####[facility] [id number] [place] [address] [facility] ALT [Catalytic activity/Vol] 17 U/L Normal 7-52 [facility] Comment on above: Order Comment: draw at 0500 Performed By: #### C MP, SCAN CBC ####[facility] Hwc4456 [place] [address] [place] Anion gap [Moles/Vol] 11.9 mmol/L Normal 6.0-15.0 [facility] Comment on above: Order Comment: draw at 0500 Performed By: #### C MP, SCAN CBC ####[facility] [id number] [place] [address] [place] AST [Catalytic activity/Vol] 11 U/L Low 13-39 [facility] Comment on above: Order Comment: draw at 0500 Performed By: #### C MP, SCAN CBC ####[facility] Ahk8465 [place] [address] [facility] Bilirubin [Mass/Vol] 0.5 mg/dL Normal 0.3-1.0 [facility] Comment on above: Order Comment: draw at 0500 Performed By: #### C MP, SCAN CBC ####[facility] [address] [place] [address] [facility] Calcium [Mass/Vol] 8.4 mg/dL Low 8.6-10.3 [facility] Comment on above: Order Comment: draw at 0500 Performed By: #### C MP, SCAN CBC ####[facility] Sce6098 [place] [address] [facility] Chloride [Moles/Vol] 101 mmol/L Normal 98-107 [facility] Comment on above: Order Comment: draw at 0500 Performed By: #### C MP, SCAN CBC ####[address] [address] [facility] CO2 [Moles/Vol] 26.8 mmol/L Normal 21.0-31.0 [facility] Comment on above: Order Comment: draw at 0500 Performed By: #### C MP, SCAN CBC ####[address] [place] [address] [facility] Creatinine [Mass/Vol] 0.51 mg/dL Low 0.70-1.30 [facility] Comment on above: Order Comment: draw at 0500 Performed By: #### C MP, SCAN CBC ####[facility] [address] [place] [address] [place] Creatinine Clr Calc Pharmacy 213.29 Normal [facility] Comment on above: Order Comment: draw at 0500 Result Comment: PERF ORMED BY:[address] [address] [place], [place] [phone] MEDICAL ALEKSANDAR LAUREN M.D. Performed By: #### C MP, SCAN CBC ####[facility] [address] [place] [address] [facility] GFR/1.73 sq M.predicted MDRD (S/P/Bld) [Vol rate/Area] mL/min/{1.73_m2} [facility] Comment on above: Order Comment: draw at 0500 Performed By: #### C MP, SCAN CBC ####[facility] Tly2413 [place] [address] [facility] Globulin (S) [Mass/Vol] 3.4 g/dL [facility] Comment on above: Order Comment: draw at 0500 Performed By: #### C MP, SCAN CBC ####[facility] [id number] [place] [address] [place] Glucose [Mass/Vol] 127 mg/dL High 70-100 [facility] Comment on above: Order Comment: draw at 0500 Result Comment: [facility] Glucose Reference Range is dependent on time and content of last meal. Glucose of more than 200 mg/dL in a nonstressed, ambulatory subject supports the diagnosis of Diabetes Mellitus. ADA recommended reference range Performed By: #### C MP, SCAN CBC ####[facility] [address] [place] [address] [place] Potassium [Moles/Vol] 3.7 mmol/L Normal 3.5-5.1 [facility] Comment on above: Order Comment: draw at 0500 Performed By: #### C MP, SCAN CBC ####[facility] [address]443 [place] [address] [place] Protein [Mass/Vol] 6.2 g/dL Low 6.4-8.9 [facility] Comment on above: Order Comment: draw at 0500 Performed By: #### C MP, SCAN CBC ####[facility] [place] [address] [place] Sodium [Moles/Vol] 136 mmol/L Normal 136-145 [facility] Comment on above: Order Comment: draw at 0500 Performed By: #### C MP, SCAN CBC ####[facility] [place] [address] [place] Urea nitrogen [Mass/Vol] 15 mg/dL Normal 7-25 [facility] Comment on above: Order Comment: draw at 0500 Performed By: #### C MP, SCAN CBC ####[address] Helmet cell detectionOrdered By: Netta Wiseman on 11-06-2022 Helmet cells LM Ql (Bld) Slight [facility] Scan and CBCon 11-06-2022 Basophils (Bld) [#/Vol] 0.1 10*3/uL Normal 0.0-0.2 [facility] Comment on above: Order Comment: draw at 0500 Performed By: #### C MP, SCAN CBC ####[address] Basophils/100 WBC (Bld) 0.2 % Normal . [facility] Comment on above: Order Comment: draw at 0500 Performed By: #### C MP, SCAN CBC ####[address] Eosinophils (Bld) [#/Vol] 0.0 10*3/uL Normal 0.0-0.45 [facility] Comment on above: Order Comment: draw at 0500 Performed By: #### C MP, SCAN CBC ####[address] Eosinophils/100 WBC (Bld) 0.0 % Normal . [facility] Comment on above: Order Comment: draw at 0500 Performed By: #### C MP, SCAN CBC ####[address] Erythrocyte distribution width (RBC) [Ratio] 13.9 % Normal 12.0-14.8 [facility] Comment on above: Order Comment: draw at 0500 Performed By: #### C MP, SCAN CBC ####[id number] [facility] Helmet Cells Slight Normal [facility] Comment on above: Order Comment: draw at 0500 Performed By: #### C MP, SCAN CBC ####[id number] [place] Hematocrit (Bld) [Volume fraction] 34.6 % Low 38.8-50.0 [facility] Comment on above: Order Comment: draw at 0500 Performed By: #### C MP, SCAN CBC ####[id number] [facility] Hemoglobin (Bld) [Mass/Vol] 11.2 g/dL Low 13.0-17.0 [facility] Comment on above: Order Comment: draw at 0500 Performed By: #### C MP, SCAN CBC ####[id number] [facility] Hypochromasia Slight Normal [facility] Comment on above: Order Comment: draw at 0500 Performed By: #### C MP, SCAN CBC ####[id number] [facility] Lymphocytes (Bld) [#/Vol] 1.1 10*3/uL Normal 1.00-4.8 [facility] Comment on above: Order Comment: draw at 0500 Performed By: #### C MP, SCAN CBC ####[id number] [facility] Lymphocytes/100 WBC (Bld) 3.5 % Normal . [facility] Comment on above: Order Comment: draw at 0500 Performed By: #### C MP, SCAN CBC ####[id number] [facility] MCH (RBC) [Entitic mass] 29.7 pg Normal 27.5-35.2 [facility] Comment on above: Order Comment: draw at 0500 Performed By: #### C MP, SCAN CBC ####[id number] [facility] MCV (RBC) [Entitic vol] 91.8 fL Normal 83.5-101 [facility] Comment on above: Order Comment: draw at 0500 Performed By: #### C MP, SCAN CBC ####[id number] [facility] Mean Corpuscular HGB Conc 32.4 g/dL Low 32.5-35.6 [facility] Comment on above: Order Comment: draw at 0500 Performed By: #### C MP, SCAN CBC ####[address] Monocytes (Bld) [#/Vol] 1.0 10*3/uL High 0.0-0.8 [facility] Comment on above: Order Comment: draw at 0500 Performed By: #### C MP, SCAN CBC ####[id number] [facility] Monocytes/100 WBC (Bld) 3.3 % Normal . [facility] Comment on above: Order Comment: draw at 0500 Performed By: #### C MP, SCAN CBC ####[address] Neutrophils (Bld) [#/Vol] 28.0 10*3/uL High 1.8-7.7 [facility] Comment on above: Order Comment: draw at 0500 Performed By: #### C MP, SCAN CBC ####[address] Neutrophils/100 WBC (Bld) 93.0 % Normal . [facility] Comment on above: Order Comment: draw at 0500 Performed By: #### C MP, SCAN CBC ####[address] NRBC% 0.0 /100{WBC} Normal 0-0.5 [facility] Comment on above: Order Comment: draw at 0500 Performed By: #### C MP, SCAN CBC ####[id number] [facility] Platelet Estimate Normal Normal Normal [facility] Comment on above: Order Comment: draw at 0500 Performed By: #### C MP, SCAN CBC ####[id number] [facility] Platelet mean volume (Bld) [Entitic vol] 8.0 fL Normal 6.6-10.1 [facility] Comment on above: Order Comment: draw at 0500 Performed By: #### C MP, SCAN CBC ####[address] [address] [facility] Platelet Morphology Normal Normal Normal [facility] Comment on above: Order Comment: draw at 0500 Result Comment: PERF ORMED BY:[address] [place], [place] [phone] MEDICAL DIRECTORNATI LAUREN M.D. Performed By: #### C MP, SCAN CBC ####[address] [address] [facility] Platelets (Bld) [#/Vol] 346 10*3/uL Normal 150-450 [facility] Comment on above: Order Comment: draw at 0500 Performed By: #### C MP, SCAN CBC ####[id number] [facility] RBC (Bld) [#/Vol] 3.77 10*6/uL Low 3.90-5.60 [facility] Comment on above: Order Comment: draw at 0500 Performed By: #### C MP, SCAN CBC ####[address] [address] [facility] WBC (Bld) [#/Vol] 30.2 10*3/uL High 4.1-10.5 [facility] Comment on above: Order Comment: draw at 0500 Performed By: #### C MP, SCAN CBC ####[id number] [facility] Aerobic Cultureon 11-05-2022 Aerobic Culture Normal [facility] Comment on above: Performed By: #### G S, AERC ####[id number] [facility] Arterial Blood Gason 023 ABG Base Excess 0.9 mmol/L Normal -3.0-3.0 [facility] Comment on above: Performed By: #### A BG ####Point of Care testing, ABG Frac Inspired O2 55 % Normal [facility] Comment on above: Performed By: #### A BG ####Point of Care testing, ABG Liter Flow 14 Normal [facility] Comment on above: Performed By: #### A BG ####Point of Care testing, ABG Oxygen Content 6.6 mmol/L Normal 6.6-9.7 [facility] Comment on above: Performed By: #### A BG ####Point of Care testing, ABG Oxygen Saturation 89.0 % Low 95.0-100.0 [facility] Comment on above: Performed By: #### A BG ####Point of Care testing, ABG PCO2, Temp Corrected 40.4 mm[Hg] Normal 35.0-45.0 [facility] Comment on above: Performed By: #### A BG ####Point of Care testing, ABG PH, Temp Corrected 7.41 Normal 7.35-7.45 [facility] Comment on above: Performed By: #### A BG ####Point of Care testing, ABG PO2, Temperature Corrected 61.0 mm[Hg] Low 80.0-100.0 [facility] Comment on above: Performed By: #### A BG ####Point of Care testing, CO2 [Moles/Vol] 25.8 mmol/L Normal 23.0-27.0 [facility] Comment on above: Performed By: #### A BG ####Point of Care testing, HCO3 (Bld) [Moles/Vol] 24.7 mmol/L Normal 23.0-29.0 [facility] Comment on above: Performed By: #### A BG ####Point of Care testing, Oxygen Device Venti Mask [facility] Comment on above: Performed By: #### A BG ####Point of Care testing, Respiratory Critical [facility] Comment on above: Result Comment: Crit ical Value called on: 11/05/2022 at 09:39PERFORMED BY:[facility] [place], [place] [phone] MEDICAL DIRECTORNATI LAUREN M.D. Performed By: #### A BG ####Point of Care testing, VBG Draw Site Right Radial Normal [facility] Comment on above: Performed By: #### A BG ####Point of Care testing, B-Type Natriuretic Peptideon 11-05-2022 Natriuretic peptide B (Bld) [Mass/Vol] 130.0 pg/mL High 5-100 [facility] Comment on above: Result Comment: PERF ORMED BY:[address] [place], [place] [phone] MEDICAL DIRECTORNATI LAUREN M.D. Performed By: #### B PAYROLL SPECIALIST, LACTIC, HS TROP, HEPATIC ####[address]#### PROCALCITONIN ####[facility] , Basic Metabolic Panelon 10-09 Anion gap [Moles/Vol] 10.1 mmol/L Normal 6.0-15.0 [facility] Comment on above: Performed By: #### E SR, BMP, MG, CBC ####[address] [address] [facility] Calcium [Mass/Vol] 7.8 mg/dL Low 8.6-10.3 [facility] Comment on above: Performed By: #### E SR, BMP, MG, CBC ####[address] [address] [facility] Chloride [Moles/Vol] 101 mmol/L Normal 98-107 [facility] Comment on above: Performed By: #### E SR, BMP, MG, CBC ####[id number] [facility] CO2 [Moles/Vol] 27.1 mmol/L Normal 21.0-31.0 [facility] Comment on above: Performed By: #### E SR, BMP, MG, CBC ####[address] [place] [address] [facility] Creatinine [Mass/Vol] 0.59 mg/dL Low 0.70-1.30 [facility] Comment on above: Performed By: #### E SR, BMP, MG, CBC ####[facility] Kxv[address] [place] [address] [facility] Creatinine Clr Calc Pharmacy 169.08 [facility] Comment on above: Performed By: #### E SR, BMP, MG, CBC ####[facility] [place] [address] [facility] GFR/1.73 sq M.predicted MDRD (S/P/Bld) [Vol rate/Area] mL/min/{1.73_m2} [facility] Comment on above: Performed By: #### E SR, BMP, MG, CBC ####[address] [place] [id number] [facility] Glucose [Mass/Vol] 135 mg/dL High 70-100 [facility] Comment on above: Result Comment: [facility] Glucose Reference Range is dependent on time and content of last meal. Glucose of more than 200 mg/dL in a nonstressed, ambulatory subject supports the diagnosis of Diabetes Mellitus. ADA recommended reference range Performed By: #### E SR, BMP, MG, CBC ####[address] [place] [address] [facility] Potassium [Moles/Vol] 3.2 mmol/L Low 3.5-5.1 [facility] Comment on above: Performed By: #### E SR, BMP, MG, CBC ####[address] [place] [address] [facility] Sodium [Moles/Vol] 135 mmol/L Low 136-145 [facility] Comment on above: Performed By: #### E SR, BMP, MG, CBC ####[facility] [place] [address] [facility] Urea nitrogen [Mass/Vol] 13 mg/dL Normal 7-25 [facility] Comment on above: Performed By: #### E SR, BMP, MG, CBC ####[facility] [id number] [place] [address] [facility] BioFire Not Detectedon 11-05 BioFire Not Detected Not detected Normal Not Detecte [facility] Comment on above: Result Comment: This is a duplicate RP2.1 COVID (PCR) result to be used for statistical tracking purpose only.PERFORMED BY:[facility] [place], [place] [phone] MEDICAL DIRECTORNATI LAUREN M.D. Performed By: #### B IOFIRECOVNOTDE, RESP PANEL UPP. ####[facility] [address]gj[address] [place] [address] [place] Blood Cultureon 11-05-2022 Bacteria identified Cx Nom (Bld) NO GROWTH 5 DAYS PERFORMED BY: [facility] [address] [place] [address] PATHOLOGIST NURSERY NURSE NATI LAUREN M.D. Normal [facility] Comment on above: Performed By: #### C UBLD ####[address] [place] [address] [facility] CARDIAC RON 3-6on 3 CK [Catalytic activity/Vol] 45 U/L Normal 39-308 [facility] Comment on above: Performed By: #### C MREP #### [facility] [address] [address] [address] Epi Goldstein CK.MB [Mass/Vol] 0.75 ng/mL Normal <=3.60 [facility] Comment on above: Performed By: #### C MREP #### [facility] [address] [address] [address] Epi Goldstein HSTROP 7.0 pg/mL Normal 4.0-76.1 [facility] Comment on above: Result Comment: CUT- OFF POINTS HAVE BEEN ESTABLISHED BASED ON THE FOURTH UNIVERSAL DEFINITIONS OF MYOCARDIAL INFARCTION. THE UPPER REFERENCE LIMIT (URL) OF TROPONIN, DEFINED THE 99TH PERCENTILE OF cTnI DISTRIBUTION IN A REFERENCE POPULATION, HAS BEEN CONFIRMED THE DECISION THRESHOLD FOR [place] DIAGNOSIS. Performed By: #### C MREP #### [facility] [address] [address] [address] Epi Goldstein COVID-19 Detected/Not Detect edOrdered By: Netta Wiseman on 11-05-2022 SARS-CoV-2 (COVID-19) RNA ROWENA+non-probe Ql (Nph) Not detected Not Detecte [facility] Comment on above: This is a duplicate RP2.1 COVID (PCR) result to be used for statistical tracking purpose only. Complete Blood Count Auto Di ffon 11-05-2022 Basophils (Bld) [#/Vol] 0.1 10*3/uL Normal 0.0-0.2 [facility] Comment on above: Performed By: #### E SR, BMP, MG, CBC ####[address] Basophils/100 WBC (Bld) 0.5 % Normal . [facility] Comment on above: Performed By: #### E SR, BMP, MG, CBC ####[address] Eosinophils (Bld) [#/Vol] 0.1 10*3/uL Normal 0.0-0.45 [facility] Comment on above: Performed By: #### E SR, BMP, MG, CBC ####[address] Eosinophils/100 WBC (Bld) 0.5 % Normal . [facility] Comment on above: Performed By: #### E SR, BMP, MG, CBC ####[address] Erythrocyte distribution width (RBC) [Ratio] 13.2 % Normal 12.0-14.8 [facility] Comment on above: Performed By: #### E SR, BMP, MG, CBC ####[address] Hematocrit (Bld) [Volume fraction] 30.8 % Low 38.8-50.0 [facility] Comment on above: Performed By: #### E SR, BMP, MG, CBC ####[address] Hemoglobin (Bld) [Mass/Vol] 10.2 g/dL Low 13.0-17.0 [facility] Comment on above: Performed By: #### E SR, BMP, MG, CBC ####[address] Lymphocytes (Bld) [#/Vol] 1.5 10*3/uL Normal 1.00-4.8 [facility] Comment on above: Performed By: #### E SR, BMP, MG, CBC ####[address] Lymphocytes/100 WBC (Bld) 8.7 % Normal . [facility] Comment on above: Performed By: #### E SR, BMP, MG, CBC ####[address] MCH (RBC) [Entitic mass] 30.0 pg Normal 27.5-35.2 [facility] Comment on above: Performed By: #### E SR, BMP, MG, CBC ####[address] MCV (RBC) [Entitic vol] 90.7 fL Normal 83.5-101 [facility] Comment on above: Performed By: #### E SR, BMP, MG, CBC ####[address] Mean Corpuscular HGB Conc 33.1 g/dL Normal 32.5-35.6 [facility] Comment on above: Performed By: #### E SR, BMP, MG, CBC ####[address] Monocytes (Bld) [#/Vol] 1.4 10*3/uL High 0.0-0.8 [facility] Comment on above: Performed By: #### E SR, BMP, MG, CBC ####[address] Monocytes/100 WBC (Bld) 8.3 % Normal . [facility] Comment on above: Performed By: #### E SR, BMP, MG, CBC ####[address] Neutrophils (Bld) [#/Vol] 14.3 10*3/uL High 1.8-7.7 [facility] Comment on above: Performed By: #### E SR, BMP, MG, CBC ####[address] Neutrophils/100 WBC (Bld) 82.0 % Normal . [facility] Comment on above: Performed By: #### E SR, BMP, MG, CBC ####[address] NRBC% 0.1 /100{WBC} Normal 0-0.5 [facility] Comment on above: Performed By: #### E SR, BMP, MG, CBC ####[address] Platelet mean volume (Bld) [Entitic vol] 7.8 fL Normal 6.6-10.1 [facility] Comment on above: Performed By: #### E SR, BMP, MG, CBC ####[address] Platelets (Bld) [#/Vol] 319 10*3/uL Normal 150-450 [facility] Comment on above: Performed By: #### E SR, BMP, MG, CBC ####[address] RBC (Bld) [#/Vol] 3.39 10*6/uL Low 3.90-5.60 [facility] Comment on above: Performed By: #### E SR, BMP, MG, CBC ####[address] WBC (Bld) [#/Vol] 17.4 10*3/uL High 4.1-10.5 [facility] Comment on above: Performed By: #### E SR, BMP, MG, CBC ####[address] ECG 12 lead ECGon 11-05-2022 ECG 12 lead ECG Normal [facility] Erythrocyte Sedimentation Ra tristin 11-05-2022 ESR (Bld) [Velocity] 82 mm/h High 0-19 [facility] Comment on above: Result Comment: PERF ORMED BY:[place] [address] [place] [place], [place] [id number] MEDICAL DIRECTORNATI LAUREN M.D. Performed By: #### E SR, BMP, MG, CBC ####[address] Erythrocyte sedimentation ra te by Photometric methodOrdered By: Annabel Boo on 11-05-2022 ESR Photometric method (Bld) [Velocity] 82 mm/hr 0-19 [facility] Gram Stainon 11-05-2022 Microscopic observation Gram stain Nom (Unsp spec) Normal [facility] Comment on above: Performed By: #### G S, AERC ####[address] Hepatic Panelon 11-05-2022 Albumin [Mass/Vol] 2.9 g/dL Low 3.5-5.7 [facility] Comment on above: Performed By: #### B PAYROLL SPECIALIST, LACTIC, HS TROP, HEPATIC ####[address]#### PROCALCITONIN ####[facility] , Albumin/Globulin [Mass ratio] 1.0 {ratio} Normal [facility] Comment on above: Performed By: #### B PAYROLL SPECIALIST, LACTIC, HS TROP, HEPATIC ####[address]#### PROCALCITONIN ####[facility] , ALP [Catalytic activity/Vol] 79 U/L Normal 34-104 [facility] Comment on above: Result Comment: PERF ORMED BY:[address] [address] [address] [place], [place] [id number] MEDICAL DIRECTORNATI LAUREN M.D. Performed By: #### B PAYROLL SPECIALIST, LACTIC, HS TROP, HEPATIC ####[facility] [address]#### PROCALCITONIN ####[facility] , ALT [Catalytic activity/Vol] 24 U/L Normal 7-52 [facility] Comment on above: Performed By: #### B PAYROLL SPECIALIST, LACTIC, HS TROP, HEPATIC ####[address]#### PROCALCITONIN ####[facility] , AST [Catalytic activity/Vol] 12 U/L Low 13-39 [facility] Comment on above: Performed By: #### B PAYROLL SPECIALIST, LACTIC, HS TROP, HEPATIC ####[address]#### PROCALCITONIN ####[facility] , Bilirubin [Mass/Vol] 0.4 mg/dL Normal 0.3-1.0 [facility] Comment on above: Performed By: #### B PAYROLL SPECIALIST, LACTIC, HS TROP, HEPATIC ####[address]#### PROCALCITONIN ####[facility] , Bilirubin,Indirect 0.3 mg/dL Normal [facility] Comment on above: Performed By: #### B PAYROLL SPECIALIST, LACTIC, HS TROP, HEPATIC ####[address]#### PROCALCITONIN ####[facility] , Bilirubin.indirect [Mass/Vol] 0.10 mg/dL Normal 0.03-0.18 [facility] Comment on above: Performed By: #### B PAYROLL SPECIALIST, LACTIC, HS TROP, HEPATIC ####[place] [address] [place]#### PROCALCITONIN ####[facility] , Globulin (S) [Mass/Vol] 2.8 g/dL Normal [facility] Comment on above: Performed By: #### B PAYROLL SPECIALIST, LACTIC, HS TROP, HEPATIC ####[facility] [place] [address] [place]#### PROCALCITONIN ####[facility] , Protein [Mass/Vol] 5.7 g/dL Low 6.4-8.9 [facility] Comment on above: Performed By: #### B PAYROLL SPECIALIST, LACTIC, HS TROP, HEPATIC ####[address] [place] [id number] [place]#### PROCALCITONIN ####[facility] , LACTATE/LACTIC ACIDon 2022 Lactate [Moles/Vol] 1.1 mmol/L Normal 0.4-2.0 [facility] Comment on above: Performed By: #### L ACT #### [facility] [address] [address] [address] Epi Goldstein Lactate [Moles/volume] in Se rum or PlasmaOrdered By: Netta Wiseman on 11-05-2022 Lactate [Moles/Vol] 0.9 mmol/L 0.5-2.2 [facility] Lactic Acidon 11-05-2022 Lactate [Moles/Vol] 0.9 mmol/L Normal 0.5-2.2 [facility] Comment on above: Result Comment: PERF ORMED BY:[address] [place], [place] [phone] MEDICAL DIRECTORNATI LAUREN M.D. Performed By: #### B PAYROLL SPECIALIST, LACTIC, HS TROP, HEPATIC ####[address] [address] [place] [id number] [place]#### PROCALCITONIN ####[facility] , Magnesiumon 11-05-2022 Magnesium [Mass/Vol] 1.9 mg/dL Normal 1.9-2.7 [facility] Comment on above: Result Comment: PERF ORMED BY:[address] [place], [place] [phone] MEDICAL DIRECTORNATI LAUREN M.D. Performed By: #### E SR, BMP, MG, CBC ####[facility] [id number] [place] [address] [place] Natriuretic peptide B [Mass/ Vol]Ordered By: Netta Wiseman on 11-05-2022 Natriuretic peptide B (Bld) [Mass/Vol] 130.0 pg/mL 5-100 [facility] No Panel InformationOrdered By: Netta Wiseman on 11-05-2022 Arterial Blood pCO2 (Temp correct) 40.4 mm[Hg] 35.0-45.0 [facility] Arterial Blood pH (Temp corrected) 7.41 7.35-7.45 [facility] Arterial Blood pO2 (Temp corrected) 61.0 mm[Hg] 80.0-100.0 [facility] Blood Gas Liter Flow 14 L/min [facility] Procalcitoninon 11-05-2022 Procalcitonin 0.32 ng/mL High 0.00-0.08 [facility] Comment on above: Result Comment: A [...] concentrations <2 ng/mL are obtained. Performed at: [address] [id number] [employer] Worker: Marla Bravo MD, Phone: [phone] BY:[facility] [place], [place] [phone] MEDICAL DIRECTORNATI LAUREN M.D. Performed By: #### B PAYROLL SPECIALIST, LACTIC, HS TROP, HEPATIC ####[facility] [id number] [place] [id number] [facility]#### PROCALCITONIN ####[facility] , Respiratory (Upper) Panel, P CRon 11-05-2022 Respiratory (Upper) Panel, PCR Normal [facility] Comment on above: Performed By: #### B IOFIRECOVNOTDE, RESP PANEL UPP. ####[facility] [id number] [place] [id number] [facility] Serum procalcitonin measurem entOrdered By: Netta Wiseman on 11-05-2022 Procalcitonin [Mass/Vol] 0.32 ng/mL 0.00-0.08 [facility] Comment on above: A procalcitonin (PCT [...] concentrations <2 ng/mL are obtained.Performed at: - [facility] [id number] Director: Marla Bravo MD, Phone: [phone] Troponin I High Sensitivityo n 11-05-2022 Troponin I High Sensitivity 17.7 pg/mL Normal 0.0-20.0 [facility] Comment on above: Result Comment: PERF ORMED BY:[address] [place], [place] [phone] MEDICAL DIRECTORNATI LAUREN M.D. Performed By: #### B PAYROLL SPECIALIST, LACTIC, HS TROP, HEPATIC ####[facility] [id number]#### PROCALCITONIN ####[facility] , XR chest 1V portableon 11-05 XR chest 1V portable Normal [facility] CARDIAC RON ADMITon 023 CK [Catalytic activity/Vol] 67 U/L Normal 39-308 [facility] Comment on above: Performed By: #### B MP, CMADM #### [facility] [address] [place] [address] Dr. Epi Goldstein CK.MB [Mass/Vol] 0.75 ng/mL Normal <=3.60 [facility] Comment on above: Performed By: #### B YOSEPH, CMADM #### [facility] [address] [place] [address] Dr. Epi Goldstein HSTROP 6.4 pg/mL Normal 4.0-76.1 [facility] Comment on above: Result Comment: CUT- OFF POINTS HAVE BEEN ESTABLISHED BASED ON THE FOURTH UNIVERSAL DEFINITIONS OF MYOCARDIAL INFARCTION. THE UPPER REFERENCE LIMIT (URL) OF TROPONIN, DEFINED THE 99TH PERCENTILE OF cTnI DISTRIBUTION IN A REFERENCE POPULATION, HAS BEEN CONFIRMED THE DECISION THRESHOLD FOR [place] DIAGNOSIS. Performed By: #### B YOSEPH, CMADM #### [facility] [address] [place] [address] Dr. Epi Goldstein PRATIK 37 ng/mL Normal 16-96 [facility] Comment on above: Performed By: #### B MP, CMADM #### [facility] [address] [address] [address] Epi Goldstein CBC AUTO DIFFon 11-04-2022 BASO # 0.0 103/ul Normal 0.0-0.1 [facility] Comment on above: Performed By: #### C BC #### [facility] [address] [address] [address] Epi Goldstein Basophils/100 WBC (Bld) 0.2 % Normal 0.2-2.0 [facility] Comment on above: Performed By: #### C BC #### [facility] [address] [address] [address] Epi Goldstein EO # 0.0 103/ul Normal 0.0-0.7 [facility] Comment on above: Performed By: #### C BC #### [facility] [address] [address] [address] Epi Goldstein Eosinophils/100 WBC (Bld) 0.2 % Critically low 0.9-7.0 [facility] Comment on above: Performed By: #### C BC #### [facility] [address] [place] [address] Dr. Epi Goldstein Erythrocyte distribution width (RBC) [Ratio] 12.5 % Normal 11.0-15.0 [facility] Comment on above: Performed By: #### C BC #### [facility] [address] [place] [address] Dr. Epi Goldstein Hematocrit (Bld) [Volume fraction] 35.9 % Critically low 42.0-54.0 [facility] Comment on above: Performed By: #### C BC #### [facility] [address] [place] [address] Dr. Epi Goldstein Hemoglobin (Bld) [Mass/Vol] 12.0 g/dL Critically low 14.0-18.0 [facility] Comment on above: Performed By: #### C BC #### [facility] [address] [place] [address] Dr. Epi Goldstein IG # 0.13 10e3/ul Critically high 0.00-0.03 [facility] Comment on above: Performed By: #### C BC #### [facility] [address] [place] [address] Dr. Epi Goldstein IG % 0.6 % Critically high 0.0-0.5 [facility] Comment on above: Performed By: #### C BC #### [facility] [address] [place] [address] Dr. Epi Goldstein LYMPH # 2.7 103/ul Normal 1.2-3.8 [facility] Comment on above: Performed By: #### C BC #### [facility] [address] [place] [address] Dr. Epi Goldstein Lymphocytes/100 WBC (Bld) 13.0 % Critically low 20.5-60.0 [facility] Comment on above: Performed By: #### C BC #### [facility] [address] [place] [address] Dr. Epi Goldstein MANUAL DIFF REQ NO Normal [facility] Comment on above: Performed By: #### C BC #### [facility] [address] [place] [address] Dr. Epi Goldstein MCH (RBC) [Entitic mass] 30.5 pg Normal 25.9-34.0 [facility] Comment on above: Performed By: #### C BC #### [facility] [address] [place] [address] Dr. pEi Goldstein MCHC (RBC) [Mass/Vol] 33.4 g/dL Normal 29.9-35.2 [facility] Comment on above: Performed By: #### C BC #### [facility] [address] [place] [address] Dr. Epi Goldstein MCV (RBC) [Entitic vol] 91.1 fL Normal 80.0-94.0 [facility] Comment on above: Performed By: #### C BC #### [facility] [address] [place] [address] Dr. Epi Goldstein MONO # 1.7 103/ul Critically high 0.3-0.8 [facility] Comment on above: Performed By: #### C BC #### [facility] [address] [place] [address] Dr. Epi Goldstein Monocytes/100 WBC (Bld) 8.4 % Normal 1.7-12.0 [facility] Comment on above: Performed By: #### C BC #### [facility] [address] [place] [address] Dr. Epi Goldstein NEUT # 16.0 103/ul Critically high 1.4-6.5 [facility] Comment on above: Performed By: #### C BC #### [facility] [address] [address] [address] Epi Goldstein Neutrophils/100 WBC (Bld) 77.6 % Critically high 43.0-75.0 [facility] Comment on above: Performed By: #### C BC #### [facility] [address] [address] [address] Epi Goldstein Platelet mean volume (Bld) [Entitic vol] 9.9 fL Normal 9.5-13.5 [facility] Comment on above: Performed By: #### C BC #### [facility] [address] [address] [address] Epi Goldstein PLT 359 103/ul Normal 150-450 [facility] Comment on above: Performed By: #### C BC #### [facility] [address] [address] [address] Epi Goldstein RBC 3.94 106/ul Critically low 4.70-6.10 [facility] Comment on above: Performed By: #### C BC #### [facility] [address] [address] [address] Epi Goldstein WBC 20.6 103/ul Critically high 4.0-11.0 [facility] Comment on above: Result Comment: revi ewed slide to confirm Performed By: #### C BC #### [facility] [address] [place] [address] Dr. Epi Goldstein CTA CHEST WO W [...] by: SKYE WOODS Date: 2022-11-04 21:02 Normal [facility] CULTURE BLOODon 11-04-2022 Microscopic examination of blood, culture Culture Observations: NO GROWTH AT 5 DAYS. Normal [facility] Comment on above: Performed By: #### L ACT #### [facility] [address] [place] [address] Dr. Epi Goldstein Microscopic examination of blood, culture Culture Observations: NO GROWTH AT 5 DAYS. Normal [facility] Comment on above: Performed By: #### L ACT #### [facility] [address] [place] [address] Dr. Epi Goldstein D-DIMERon 11-04-2022 D-DIMER 0.96 mg/L FEU Critically high <=0.59 [facility] Comment on above: Performed By: #### D DIM #### [facility] [address] [place] [address] Dr. Epi Goldstein D-DIMER COMMENTS SEE BELOW Normal [facility] Comment on above: Result Comment: Incr [...] hospitalization. Performed By: #### D DIM #### [facility] [address] [place] [address] Dr. Epi Goldstein LACTATE/LACTIC ACIDon 2022 Lactate [Moles/Vol] 0.8 mmol/L Normal 0.4-2.0 [facility] Comment on above: Performed By: #### L ACT #### [facility] [address] [place] [address] Dr. Epi Goldstein PROF CHEM 8 (BAS METB)on Anion gap [Moles/Vol] 9.2 mmol/L Normal [facility] Comment on above: Performed By: #### B SARA HAMEED #### [facility] [address] [place] [address] Dr. Epi Goldstein Calcium [Mass/Vol] 8.9 mg/dL Normal 8.5-10.1 [facility] Comment on above: Performed By: #### B SARA HAMEED #### [facility] [address] [place] [address] Dr. Epi Goldstein Chloride [Moles/Vol] 101 mmol/L Normal 98-107 [facility] Comment on above: Performed By: #### B SARA HAMEED #### [facility] [address] [place] [address] Dr. Epi Goldstein CO2 [Moles/Vol] 29.1 mmol/L Normal 21.0-32.0 [facility] Comment on above: Performed By: #### B MP, CMADM #### [facility] [address] [address] [address] Epi Goldstein Creatinine [Mass/Vol] 0.71 mg/dL Normal 0.70-1.30 [facility] Comment on above: Performed By: #### B YOSEPH, CMADM #### [facility] [address] [address] [address] Epi Goldstein EGFR-AF SUDANESE >60 Normal >=60 [facility] Comment on above: Performed By: #### B YOSEPH, CMADM #### [facility] [address] [address] [address] Epi Goldstein EGFR-NON AF SUDANESE >60 Normal >=60 [facility] Comment on above: Performed By: #### B YOSEPH, CMADM #### [facility] [address] [address] [address] Epi Goldstein Glucose [Mass/Vol] 105 mg/dL Normal 74-106 [facility] Comment on above: Performed By: #### B YOSEPH, CMADM #### [facility] [address] [address] [address] Epi Goldstein Potassium [Moles/Vol] 3.3 mmol/L Critically low 3.5-5.1 [facility] Comment on above: Performed By: #### B YOSEPH, CMADM #### [facility] [address] [address] [address] Epi Goldstein Sodium [Moles/Vol] 136 mmol/L Normal 136-145 [facility] Comment on above: Performed By: #### B YOSEPH, CMADM #### [facility] [address] [address] [address] Epi Goldstein Urea nitrogen [Mass/Vol] 10.0 mg/dL Normal 7.0-18.0 [facility] Comment on above: Performed By: #### B YOSEPH, CMADM #### [facility] [address] [address] [address] Epi Goldstein Urea nitrogen/Creatinine [Mass ratio] 14.1 mg/mg Normal [facility] Comment on above: Performed By: #### B YOSEPH, CMADM #### [facility] [address] [place] [address] Dr. Epi Goldstein RESPIRATORY PANEL PLUSon Adenovirus Not detected Normal NOT DETECTED [facility] Comment on above: Performed By: #### R SPLUS #### [facility] [address] [place] [address] Dr. Epi Miller Parapertusis Not detected Normal NOT DETECTED [facility] Comment on above: Performed By: #### R SPLUS #### [facility] [address] [place] [address] Dr. Epi Miller Pertussis Not detected Normal NOT DETECTED [facility] Comment on above: Performed By: #### R SPLUS #### [facility] [address] [place] [address] Dr. Epi Goldstein Chlamydia Pneumoniae Not detected Normal NOT DETECTED [facility] Comment on above: Performed By: #### R SPLUS #### [facility] [address] [place] [address] Dr. Epi Goldstein Coronavirus 229E Not detected Normal NOT DETECTED [facility] Comment on above: Performed By: #### R SPLUS #### [facility] [address] [place] [address] Dr. Epi Goldstein Coronavirus HKU1 Not detected Normal NOT DETECTED [facility] Comment on above: Performed By: #### R SPLUS #### [facility] [address] [place] [address] Dr. Epi Goldstein Coronavirus NL63 Not detected Normal NOT DETECTED [facility] Comment on above: Performed By: #### R SPLUS #### [facility] [address] [place] [address] Dr. Epi Goldsetin Coronavirus OC43 Not detected Normal NOT DETECTED [facility] Comment on above: Performed By: #### R SPLUS #### [facility] [address] [place] [address] Dr. Epi Goldstein Influenza A H1 Not detected Normal NOT DETECTED [facility] Comment on above: Performed By: #### R SPLUS #### [facility] [address] [place] [address] Dr. Epi Goldstein Influenza A H1 2009 Not detected Normal NOT DETECTED [facility] Comment on above: Performed By: #### R SPLUS #### [facility] [address] [place] [address] Dr. Epi Goldstein Influenza A H3 Not detected Normal NOT DETECTED [facility] Comment on above: Performed By: #### R SPLUS #### [facility] [address] [place] [address] Dr. Epi Goldstein Influenza B Not detected Normal NOT DETECTED [facility] Comment on above: Performed By: #### R SPLUS #### [facility] [address] [place] [address] Dr. Epi Goldstein Metapneumovirus Not detected Normal NOT DETECTED [facility] Comment on above: Performed By: #### R SPLUS #### [facility] [address] [place] [address] Dr. Epi Goldstein Mycoplas. Pneumoniae Not detected Normal NOT DETECTED [facility] Comment on above: Performed By: #### R SPLUS #### [facility] [address] [place] [address] Dr. Epi Goldstein Parainfluenza 1 Not detected Normal NOT DETECTED [facility] Comment on above: Performed By: #### R SPLUS #### [facility] [address] [place] [address] Dr. Epi Goldstein Parainfluenza 2 Not detected Normal NOT DETECTED [facility] Comment on above: Performed By: #### R SPLUS #### [facility] [address] [place] [address] Dr. Epi Goldstein Parainfluenza 3 Not detected Normal NOT DETECTED [facility] Comment on above: Performed By: #### R SPLUS #### [facility] [address] [place] [address] Dr. Epi Goldstein Parainfluenza 4 Not detected Normal NOT DETECTED [facility] Comment on above: Performed By: #### R SPLUS #### [facility] [address] [place] [address] Dr. Epi Goldstein Rhino/Enterovirus Not detected Normal NOT DETECTED [facility] Comment on above: Performed By: #### R SPLUS #### [facility] [address] [place] [address] Dr. Epi Goldstein RP2 Header 1 RESPIRATORY PANEL: VIRUSES Normal [facility] Comment on above: Performed By: #### R SPLUS #### [facility] [address] [place] [address] Dr. Epi Goldstein RP2 Header 2 RESPIRATORY PANEL: BACTERIA Normal [facility] Comment on above: Performed By: #### R SPLUS #### [facility] [address] [place] [address] Dr. Epi Goldstein RSV Not detected Normal NOT DETECTED [facility] Comment on above: Performed By: #### R SPLUS #### [facility] [address] [place] [address] Dr. Epi Goldstein SARS-CoV-2 (COVID-19) RNA ROWENA+probe Ql (Unsp spec) Not detected Normal NOT DETECTED [facility] Comment on above: Performed By: #### R SPLUS #### [facility] [address] [place] [address] Dr. Epi Goldstein Covid-19 PCR ([facility])on 08-10 SARS-CoV-2 (COVID-19) RNA ROWENA+probe Ql (Unsp spec) Not detected Normal NOT DETECTED [facility] Comment on above: Result Comment: When diagnostic [...] for this test is supported by the [place] of Health and Human Service's declaration that [...] used). Performed By: #### L ACT #### [facility] [address] [place] [address] Dr. Epi Goldstein INFLUENZA A AND B AGon 08-27 [facility] SEE BELOW Normal [facility] Comment on above: Result Comment: Nega tive for Flu A protein angiten. Infection due to Flu A cannot be ruled out. Flu A angiten in the sample may be below the detection limit of the test. Performed By: #### L ACT #### [facility] [address] [place] [address] Dr. [facility] Normal [facility] Comment on above: Result Comment: Nega tive for Flu B protein antigen. Infection due to Flu B cannot be ruled out. Flu B antigen in the sample may be below the detection limit of the test. Performed By: #### L ACT #### [facility] [address] [place] [address] Dr. Epi Goldstein INFLUENZA A AG Negative Normal NEGATIVE SEE COMMENT [facility] Comment on above: Performed By: #### L ACT #### [facility] [address] [place] [address] Dr. Epi Goldstein INFLUENZA B AG Negative Normal NEGATIVE SEE COMMENT [facility] Comment on above: Performed By: #### L ACT #### [facility] [address] [place] [address] Dr. Epi Goldstein XR CHEST 1 Von [...] by: LORI RODRIGUEZ Date: 2022-08-27 20:19 Normal [facility] In office Testingon 08-24-19 23 In office Testing [id number]#1.00CD:1 27 Normal [facility] Consenton 08-09-2022 Consent [id number]#1.00CD:12 7 [facility] Registrationon 08-09-2022 Registration [id number]#1.00CD:12 7 [facility] COVID/FLU/RSV RT-PCRon 07-07 SARS-CoV-2 (COVID-19) RNA ROWENA+probe Ql (Unsp spec) Positive [facility] [employer] Other COVID/FLU/RSV RT-PCR Negative [facility] [employer] Other [place] 05-25-2022 Consent [id number]#1.00CD:12 7 [facility] Registrationon 05-25-2022 Registration [id number]#1.00CD:12 7 [facility] CBC AUTO DIFFon 03-12-2022 BASO # 0.1 103/ul Normal 0.0-0.1 [facility] Comment on above: Performed By: #### C BC #### [facility] [address] [place] [address] Dr. Epi Goldstein Basophils/100 WBC (Bld) 0.9 % Normal 0.2-2.0 [facility] Comment on above: Performed By: #### C BC #### [facility] [address] [place] [address] Dr. Epi Goldstein EO # 0.4 103/ul Normal 0.0-0.7 [facility] Comment on above: Performed By: #### C BC #### [facility] [address] [address] [address] Epi Goldstein Eosinophils/100 WBC (Bld) 4.4 % Normal 0.9-7.0 [facility] Comment on above: Performed By: #### C BC #### [facility] [address] [place] [address] Dr. Epi Goldstein Erythrocyte distribution width (RBC) [Ratio] 12.4 % Normal 11.0-15.0 [facility] Comment on above: Performed By: #### C BC #### [facility] [address] [place] [address] Dr. Epi Goldstein Hematocrit (Bld) [Volume fraction] 35.1 % Critically low 42.0-54.0 [facility] Comment on above: Performed By: #### C BC #### [facility] [address] [place] [address] Dr. Epi Goldstein Hemoglobin (Bld) [Mass/Vol] 11.8 g/dL Critically low 14.0-18.0 [facility] Comment on above: Performed By: #### C BC #### [facility] [address] [place] [address] Dr. Epi Goldstein IG # 0.02 10e3/ul Normal 0.00-0.03 [facility] Comment on above: Performed By: #### C BC #### [facility] [address] [place] [address] Dr. Epi Goldstein IG % 0.2 % Normal 0.0-0.5 [facility] Comment on above: Performed By: #### C BC #### [facility] [address] [place] [address] Dr. Epi Goldstein LYMPH # 2.9 103/ul Normal 1.2-3.8 [facility] Comment on above: Performed By: #### C BC #### [facility] [address] [place] [address] Dr. Epi Goldstein Lymphocytes/100 WBC (Bld) 29.8 % Normal 20.5-60.0 [facility] Comment on above: Performed By: #### C BC #### [facility] [address] [place] [address] Dr. Epi Goldstein MANUAL DIFF REQ NO Normal [facility] Comment on above: Performed By: #### C BC #### [facility] [address] [place] [address] Dr. Epi Goldstein MCH (RBC) [Entitic mass] 30.7 pg Normal 25.9-34.0 [facility] Comment on above: Performed By: #### C BC #### [facility] [address] [place] [address] Dr. Epi Goldstein MCHC (RBC) [Mass/Vol] 33.6 g/dL Normal 29.9-35.2 [facility] Comment on above: Performed By: #### C BC #### [facility] [address] [place] [address] Dr. Epi Goldstein MCV (RBC) [Entitic vol] 91.4 fL Normal 80.0-94.0 [facility] Comment on above: Performed By: #### C BC #### [facility] [address] [place] [address] Dr. Epi Goldstein MONO # 0.8 103/ul Normal 0.3-0.8 [facility] Comment on above: Performed By: #### C BC #### [facility] [address] [place] [address] Dr. Epi Goldstein Monocytes/100 WBC (Bld) 8.1 % Normal 1.7-12.0 [facility] Comment on above: Performed By: #### C BC #### [facility] [address] [place] [address] Dr. Epi Goldstein NEUT # 5.5 103/ul Normal 1.4-6.5 [facility] Comment on above: Performed By: #### C BC #### [facility] [address] [place] [address] Dr. Epi Goldstein Neutrophils/100 WBC (Bld) 56.6 % Normal 43.0-75.0 [facility] Comment on above: Performed By: #### C BC #### [facility] [address] [place] [address] Dr. Epi Goldstein Platelet mean volume (Bld) [Entitic vol] 10.2 fL Normal 9.5-13.5 [facility] Comment on above: Performed By: #### C BC #### [facility] [address] [place] [address] Dr. Epi Goldstein PLT 237 103/ul Normal 150-450 [facility] Comment on above: Performed By: #### C BC #### [facility] [address] [place] [address] Dr. Epi Goldstein RBC 3.84 106/ul Critically low 4.70-6.10 [facility] Comment on above: Performed By: #### C BC #### [facility] [address] [place] [address] Dr. Epi Goldstein WBC 9.7 103/ul Normal 4.0-11.0 [facility] Comment on above: Performed By: #### C BC #### [facility] [address] [place] [address] Dr. Epi Goldstein PROF CHEM 8 (BAS METB)on Anion gap [Moles/Vol] 13.2 mmol/L Normal [facility] Comment on above: Performed By: #### B MP #### [facility] [address] [place] [address] Dr. Epi Goldstein Calcium [Mass/Vol] 8.3 mg/dL Critically low 8.5-10.1 [facility] Comment on above: Performed By: #### B MP #### [facility] [address] [place] [address] Dr. Epi Goldstein Chloride [Moles/Vol] 105 mmol/L Normal 98-107 [facility] Comment on above: Performed By: #### B MP #### [facility] [address] [place] [address] Dr. Epi Goldstein CO2 [Moles/Vol] 26.7 mmol/L Normal 21.0-32.0 [facility] Comment on above: Performed By: #### B MP #### [facility] [address] [place] [address] Dr. Epi Goldstein Creatinine [Mass/Vol] 0.76 mg/dL Normal 0.70-1.30 [facility] Comment on above: Performed By: #### B MP #### [facility] [address] [place] [address] Dr. Epi Goldstein EGFR-AF SUDANESE >60 Normal >=60 [facility] Comment on above: Performed By: #### B MP #### [facility] [address] [address] [address] Epi Goldstein EGFR-NON AF SUDANESE >60 Normal >=60 [facility] Comment on above: Performed By: #### B MP #### [facility] [address] [address] [address] Epi Goldstein Glucose [Mass/Vol] 127 mg/dL Critically high 74-106 [facility] Comment on above: Performed By: #### B MP #### [facility] [address] [address] [address] Epi Goldstein Potassium [Moles/Vol] 3.9 mmol/L Normal 3.5-5.1 [facility] Comment on above: Performed By: #### B MP #### [facility] [address] [address] [address] Epi Goldstein Sodium [Moles/Vol] 141 mmol/L Normal 136-145 [facility] Comment on above: Performed By: #### B MP #### [facility] [address] [address] [address] Epi Goldstein Urea nitrogen [Mass/Vol] 14.0 mg/dL Normal 7.0-18.0 [facility] Comment on above: Performed By: #### B MP #### [facility] [address] [address] [address] Epi Goldstein Urea nitrogen/Creatinine [Mass ratio] 18.4 mg/mg Normal [facility] Comment on above: Performed By: #### B MP #### [facility] [address] [address] [address] Epi Goldstein US JAMSE DOP LEG LTon 03-12-20 US JAMES DOP [...] by: LORI DOWNEY Date: 2022-03-12 13:59 Normal [facility] XR TIB_FIB LT 2Von 2 XR [...] MERI SIMPSON Date: 2022-03-12 14:19 Normal [facility] CNOVon 12-14-2018 CNOV Office Visit (PAINLN ) ----- LORI ANTON ([id number]) 1965 M Date Time Provider Department 12/14/18 10:15 AM STEVE WILSON During your visit today, we recorded the following information about you: Pulse Weight 63/minute 104.8 kg Steve Wilson DO 12/14/2018 10:53 AM Signed [facility] Initial Evaluation December 14, 2018 - 9:54 AM This appointment was requested by Bryce CUADRA, for my medical opinion regarding? the evaluation and management of the patient's LORI Anton problems, and my final recommendations will be communicated to the requesting health care provider by way of the shared medical record for internal providers or letter via the [employer] for external providers. 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 Airline Manager: No Passive conservative therapy lasting 6 weeks [...] 14, 2018 Referring Provider: BRYCE GLASS (KHALIF) [[id number]] Allergies As of Date: 12/14/2018 Noted Allergy [...] knee [M25.561, G89.29] Order(s):CONSULT TO PHYSICAL THERAPY [9020] Order #: [id number]: 1 tiZANidine (ZANAFLEX) 4 mg tabletTake 1 [...] by STEVE WILSON DO on 12/14/18 Normal [facility] CNOV Office Visit (LOORRM ) ----- LORI ANTON ([id number]) 1965 M Date Time Provider Department 12/14/18 [...] evaluation for his back. PROCEDURE: None. Bryce Galss PA-C Referring Provider: SELF [[id number]] Allergies As [...] CONSULT TO PHYSICAL THERAPY [9032] Order #: [id number]: 1 CONSULT TO PAIN MGT ANESTHESIA [429792] Order #: [id number]: 1 Prescriptions as of 12/14/2018 Sig: CARVEDILOL [...] Status:Closed by BRYCE GLASS on 12/14/18 Normal [facility] PROGRESSon 12-14-2018 Protein mass conc HNO ID: [id number] Author: Steve Wilson Service: ? Author Type: Physician Type: Progress Notes Filed: 12/14/2018 10:53 AM Note Text: [facility] Initial Evaluation December 14, 2018 - 9:54 AM This appointment was requested by Bryce CUADRA, for my medical opinion regarding? the evaluation and management of the patient's LORI Anton problems, and my final recommendations will be communicated to the requesting health care provider by way of the shared medical record for internal providers or letter via the [employer] for external providers. 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 Airline Manager: No Passive conservative therapy lasting 6 weeks [...] Steve Wilson, DO December 14, 2018 Normal [facility] Protein mass conc HNO ID: [id number] Author: Bryce Glass (Pa) Service: ? Author Type: Physician Surgical Coordinator Type: Progress Notes Filed: 12/14/2018 9:30 AM [...] back. PROCEDURE: None. Bryce Glass PA-C Normal [facility] CNOVon 10-11-2018 CNOV Office Visit (LOORRM ) ----- LORI ANTON ([id number]) 1965 M Date Time Provider Department 10/11/18 [...] experiencing run in your family? 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 Service: ? Author [...] the injections well. Theodore Gonzalez Jr, MD [facility] mass conc HNO ID: [id number] Author: Pallavi Pritchett (Rt) Vinh Glass Service: ? Author Type: Chute Operator Type: Progress Notes Filed: 10/11/2018 10:07 AM [...] Wendy October 11, 2018 10:07 AM Normal [facility] XR KNEE 4V AP/PA/LAT/MERCH B ILon 10-11-2018 [...] age. 2.1 cm left posterolateral joint body. Chainstitch Elastic Attacher: RUPESH Transcribe Date/Time: Oct 11 2018 10:14A Dictated by : ACE BUSTAMANTE MD This examination was interpreted and the report reviewed and electronically signed by: ACE BUSTAMANTE MD on Oct 11 2018 10:18AM EST [id number] Normal [facility] Vital Signs Date Time Vital Sign Value Performing Clinician Facility 07-31-2023 19:51-0500 Body height 190.5 cm Shaista Aichholz Work Phone: [facility] 07-31-2023 19:51-0500 Body temperature 100.1 [degF] Shaista Aichholz Work Phone: [facility] 07-31-2023 19:51-0500 Body weight 92.98 kg Shaista Aichholz Work Phone: [facility] 07-31-2023 19:51-0500 Diastolic blood pressure 78 mm[Hg] Shaista Aichholz Work Phone: [facility] 07-31-2023 19:51-0500 Heart rate 96 /min Shaista Aichholz Work Phone: [facility] 07-31-2023 19:51-0500 Respiratory rate 16 /min Shaista Aichholz Work Phone: [facility] 07-31-2023 19:51-0500 SaO2% (BldA) [Mass fraction] 98 % Shaista Aichholz Work Phone: [facility] 07-31-2023 19:51-0500 Systolic blood pressure 133 mm[Hg] Shaista Aichholz Work Phone: [facility] 12-28-2022 08:30-0400 Body height 190.5 cm Bakaridevon Huitron Other [employer] Other 12-28-2022 08:30-0400 Body mass index (BMI) [Ratio] 25.77 kg/m2 Ismael Huitron Other [employer] Other 12-28-2022 08:30-0400 Body temperature 98.1 [degF] Ismael Huitron Other [employer] Other 12-28-2022 08:30-0400 Body weight 93.53 kg Ismael Huitron Other [employer] Other 12-28-2022 08:30-0400 Diastolic blood pressure 92 mm[Hg] Ismael Juárezban Other [employer] Other 12-28-2022 08:30-0400 Respiratory rate 20 /min Ismael Huitron Other [employer] Other 12-28-2022 08:30-0400 SaO2% (BldA) [Mass fraction] 98 % Ismael Huitron Other [employer] Other 12-28-2022 08:30-0400 Systolic blood pressure 152 mm[Hg] Ismael Huitron Other [employer] Other 12-08-2022 21:30-0400 Diastolic blood pressure 87 mm[Hg] Shaista Aichholz Work Phone: [facility] 12-08-2022 21:30-0400 Heart rate 65 /min Shaista Aichholz Work Phone: [facility] 12-08-2022 21:30-0400 Respiratory rate 18 /min Shaista Aichholz Work Phone: [facility] 12-08-2022 21:30-0400 SaO2% (BldA) [Mass fraction] 96 % Shaista Aichholz Work Phone: [facility] 12-08-2022 21:30-0400 Systolic blood pressure 134 mm[Hg] Shaista Aichholz Work Phone: [facility] 12-08-2022 19:30-0400 Body temperature 98.1 [degF] Shaista Aichholz Work Phone: [facility] 12-08-2022 17:36-0400 Body height 190.5 cm Shaista Aichholz Work Phone: [facility] 12-08-2022 17:36-0400 Body weight 91.1 kg Shaista Aichholz Work Phone: [facility] 11-21-2022 12:00-0400 Body temperature 98.1 [degF] Shaista Aichholz Work Phone: [facility] 11-21-2022 12:00-0400 Diastolic blood pressure 73 mm[Hg] Shaista Aichholz Work Phone: [facility] 11-21-2022 12:00-0400 Heart rate 74 /min Shaista Aichholz Work Phone: [facility] 11-21-2022 12:00-0400 Inhaled oxygen flow rate 4 L/min Shaista Aichholz Work Phone: [facility] 11-21-2022 12:00-0400 Respiratory rate 18 /min Shaista Aichholz Work Phone: [facility] 11-21-2022 12:00-0400 SaO2% (BldA) [Mass fraction] 95 % Shaista Aichholz Work Phone: [facility] 11-21-2022 12:00-0400 Systolic blood pressure 135 mm[Hg] Shaista Aichholz Work Phone: [facility] 11-21-2022 03:52-0400 Body weight 97.1 kg Shaista Aichholz Work Phone: [facility] 11-18-2022 09:00-0400 Inhaled oxygen concentration 40 % Sahista Aichholz Work Phone: [facility] 11-17-2022 13:54-0400 Body height 190.5 cm Shaista Robinisiahsushma Work Phone: [facility] 07-07-2022 17:45-0500 Body height 190.5 cm Supriya Kevin Other [employer] Other 07-07-2022 17:45-0500 Body mass index (BMI) [Ratio] 28.12 kg/m2 Supriya Kevin Other [employer] Other 07-07-2022 17:45-0500 Body temperature 100.5 [degF] Supriya Brown Other [employer] Other 07-07-2022 17:45-0500 Body weight 102.06 kg Supriya Brown Other [employer] Other 07-07-2022 17:45-0500 Diastolic blood pressure 84 mm[Hg] Supriya Brown Other [employer] Other 07-07-2022 17:45-0500 Respiratory rate 18 /min Supriya Brown Other [employer] Other 07-07-2022 17:45-0500 SaO2% (BldA) [Mass fraction] 97 % Supriya Brown Other [employer] Other 07-07-2022 17:45-0500 Systolic blood pressure 123 mm[Hg] Supriya Brown Other [employer] Other Encounters Encounter Date Encounter Type Care Provider Facility Start: 08-30-2023 End: 02-21-2024 ambulatory SHAISTA CJ Not Available Start: 07-31-2023 End: 08-01-2023 Emergency department patient visit Ej Garcia Facility:[facility] Start: 07-31-2023 End: 07-31-2023 Emergency department patient visit Shaista Robinisiahsushma Work Phone: [facility] Work Phone: Start: 05-23-2023 End: 05-24-2023 ambulatory Gregg PATTEN Facility[facility] Start: 12-28-2022 End: 12-28-2022 ambulatory Ismael Huitron Other [employer] Other Start: 12-28-2022 Office outpatient visit 25 minutes Ismael Huitron [facility] Start: 12-26-2022 End: 12-26-2022 ambulatory Shaista Whittaker Cj Facility:[facility] Start: 12-26-2022 End: 12-26-2022 ambulatory Shaista Whittaker Jeannettesheila Work Phone: [facility] Work Phone: Start: 12-26-2022 End: 12-26-2022 Patient encounter procedure Shaista Corona Work Phone: [facility] [place] Work Phone: Start: 12-15-2022 End: 12-16-2022 ambulatory Rosa Christopher CORTEZ Facility[facility] Start: 12-08-2022 End: 12-08-2022 Emergency department patient visit Lisha Silva Facility:[facility] Start: 12-08-2022 End: 12-08-2022 Emergency department patient visit Shaista Cj Work Phone: [facility] Work Phone: Start: 11-05-2022 End: 11-21-2022 Evaluation and management of inpatient Sanjay Holt Facility:[facility] Start: 11-05-2022 End: 11-21-2022 Evaluation and management of inpatient Shaista Aichholz Work Phone: [facility] Work Phone: Start: 11-04-2022 End: 11-05-2022 ambulatory RADHA CORONA Facility:[facility] Start: 11-03-2022 End: 11-03-2022 ambulatory RADHA CORONA Facility:[facility] Start: 08-27-2022 End: 08-27-2022 ambulatory CATRACHITO ALONZO . Facility:[facility] Start: 08-09-2022 End: 08-10-2022 ambulatory Gregg LATHAM [facility] Start: 07-07-2022 End: 07-07-2022 ambulatory Supriya Brown Other [employer] Other Start: 07-07-2022 Office outpatient ne w 20 minutes Supriya Brown [facility] Start: 05-25-2022 End: 05-26-2022 ambulatory Gregg LATHAM [facility] Start: 03-12-2022 [...] Work Phone: Start: 11-17-2022 Aerobic microbial culture Sahista Corona Work Phone: Start: 11-17-2022 Blood culture [...] Date Care Activity Detail Author Start: 11-21-2022 [facility] Start: 11-20-2022 Administration of prophylactic treatment [facility] Start: 11-19-2022 Physical therapy procedure [facility] Start: 11-17-2022 Blood culture for bacteria, including anaerobic screen Blood Culture [facility] Start: 11-17-2022 Fungal Culture Result 2 Fungal Culture Result [address] [facility] Start: 11-17-2022 Mycology culture [facility] Start: 11-14-2022 [facility] Start: 11-06-2022 Referral to infectious diseases physician [facility] Start: 11-05-2022 Drainage of Right Pleural Cavity with Drainage Device, Percutaneous Approach Drainage of Right Pleural Cavity with Drainage Device, Percutaneous Approach [facility] Start: 11-05-2022 Insertion of Endotracheal Airway into Trachea, Via Natural or Artificial Opening Insertion of Endotracheal Airway into Trachea, Via Natural or Artificial Opening [facility] Start: 11-05-2022 Insertion of Infusion Device into Superior Vena Cava, Percutaneous Approach Insertion of Infusion Device into Superior Vena Cava, Percutaneous Approach [facility] Start: 11-05-2022 Inspection of Tracheobronchial Tree, Via Natural or Artificial Opening Endoscopic Inspection of Tracheobronchial Tree, Via Natural or Artificial Opening Endoscopic [facility] Start: 11-05-2022 Irrigation of Respiratory Tract using Irrigating Substance, Via Natural or Artificial Opening Endoscopic, Diagnostic Irrigation of Respiratory Tract using Irrigating Substance, Via Natural or Artificial Opening Endoscopic, Diagnostic [facility] Start: 11-05-2022 Respiratory Ventilation, Greater than 96 Consecutive Hours Respiratory Ventilation, Greater than 96 Consecutive Hours [facility] Start: 11-05-2022 Sleep disorder assessment [facility] Start: 11-05-2022 Consultation [facility] Start: 11-05-2022 Hospital admission [facility] Fungus identified in Unspecified specimen by Culture [facility] Mycobacterium sp identified in Unspecified specimen by Organism specific culture [facility] Patient Education [facility] Work Phone: Patient referral [facility] Work Phone: XR Chest 2 Views [facility] Payers Date Payer Category Payer Self-pay [id number] 1965 Unknown [id number] 2.16.84 [id number] 1965 Unknown [id number] 2.16.84 [id number] 1965 Unknown [id number] 2.16.84 [id number] 1965 Unknown [id number] 2.16.84 [id number] 1965 Unknown [id number] 2.16.84 [id number] 1957 [facility] [id number] Unknown [id number] 2.16.8 [id number] Unknown [id number] 2.16.8 [id number] Unknown [id number] 2.16.8 [id number] Unknown [id number] 2.16.8 [id number] Social History Date Type Detail Facility Sex Assigned At [place] [employer] Other Start: 11-07-2022 End: 12-08-2022 Tobacco smoking status NHIS Smoker (finding) [facility] Start: 1965 Sex Assigned At Male F [facility] Start: 07-31-2023 Tobacco smoking stat us NHIS Current some day smoker [facility] Goals Date Patient Goal Desired Activity /State Functional Status Date Assessment Result Facility 11-21-2022 Functional status 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 Baseline [facility] Work Phone: Mental Status Date Assessment Result Facility 11-21-2022 Cognitive function Cognitive Sta tus Patient is Progressing Toward Baseline [facility] Work Phone: Clinical Notes 07-07-2022 to 12-28-2022 Note Date & Type Note Facility 12-28-2022 Evaluation note Encounter Date Diagnosis Assessment Notes Dec, Pneumonia of right lower lobe due to infectious organism (ICD-10 - J18.9) Dec, History of pneumothorax (ICD-10 - Z87.09) Dec, Tobacco use disorder (ICD-10 - F17.200) [facility] Other 05-15-2023 Progress note Author Ismael Huitron [facility] November 21, 2022 11:17am Note Date/Time November 21, 2022 11:17 am [facility] [address] [place] [address] Pulmonology Progress Note Signed Patient: Lori Anton MR#: [id number] : 1965 Acct:[id number] Age/Sex: 57 / M Adm Date: 3 Loc: Room: [address] [place] [address] Type: ADM IN Attending Dr: Rubi Ramos [...] that Documented By: Ismael Huitron MD 11/21/22 4847 Signed By: <Electronically signed by Ismael Huitron MD> 11/21/[address] [facility] Work Phone: [phone] Progress note Author Sanjay Holt [facility] November 21, 2022 9:14am Note Date/Time November 21, 2022 9:15a m [facility] [address] [place] [address] Infect. Disease Progress Note Signed Patient: Lori Anton MR#: [id number] : 1965 Acct:[id number] Age/Sex: 57 / M Adm Date: 3 Loc: Room: [address] [place] [address] Type: ADM IN Attending Dr: Rubi Ramos [...] 2 Mg Tab.Subl) 2 mg SUBLINGUAL BID [facility] Stop: 05/18/23 09:26 Last Admin: 11/20/22 22:02 Dose: 2 mg Docusate Sodium (Docusate 100 Mg Capsule) 100 mg PO BID PRN PRN Reason: Constipation Stop: 11/18/23 10:23 Enoxaparin Sodium (Enoxaparin 40 Mg/0.4 Ml Syringe) 40 mg SUBCUT DAILY@1000 [facility] Stop: 11/06/23 09:59 Last Admin: 11/20/22 09:03 Dose: 40 mg Fluoxetine HCl (Fluoxetine 20 Mg Capsule) 40 mg PO HS [facility] Stop: 11/20/23 21:59 Last Admin: 11/20/22 22:02 Dose: 40 mg Fluoxetine HCl (Fluoxetine 20 Mg Capsule) 20 mg PO DAILY@0600 [facility] Stop: 11/20/23 05:59 Last Admin: 11/21/22 05:46 Dose: 20 mg Heparin Sodium (Porcine) (Heparin-Lock 500 Unit/5 Ml Syringe) 0 unit IV-PUSH QSHIFT [facility] Stop: 11/14/23 21:59 Last Admin: 11/21/22 05:46 Dose: 500 unit Linezolid (Zyvox) 600 mg in 300 mls @ 300 mls/hr IV Q12H [facility] Last Admin: 11/20/22 22:02 Dose: 300 mls/hr Meropenem (Merrem) 1 gm in 100 mls @ 33.333 mls/hr IV Q8H [facility] Last Admin: 11/21/22 03:48 Dose: 33.3 mls/hr Lidocaine HCl (Lidocaine 1% Pf 5 Ml Inj.Zara) 10 ml INFILTRATN ONCE PRN PRN Reason: Pain Metoprolol Tartrate (Metoprolol Tartrate 12.5 Mg Tablet) 12.5 mg PO BID [facility] Stop: 11/18/23 20:59 Last Admin: 11/20/22 22:02 [...] <Electronically signed by MD Sanjay Holt> 11/21/2214 [facility] Work Phone: [phone] Progress note Author Shant Villegas [facility] November 20, 2022 3:35pm Note Date/Time November 20, 2022 3:35p m [facility] [address] [place] [address] Hospitalist Progress Note Signed Patient: Lori Anton MR#: [id number] : 1965 Acct:[id number] Age/Sex: 57 / M Adm Date: 3 Loc: Room: 7Y2783-7 Type: ADM IN Attending Dr: Shant Villegas [...] cough, and right-sided chest pain to the [facility] ED and Transferred for the evaluation and [...] signed by Shant Villegas MD> 11/20/22 1535 [facility] Work Phone: [phone] Progress note Author Ismael Huitron [facility] November 20, 2022 1:40pm Note Date/Time November 20, 2022 1:40p m [facility] [address] [place] [address] Pulmonology Progress Note Signed Patient: Lori Anton MR#: [id number] : 1965 Acct:[id number] Age/Sex: 57 / M Adm Date: 3 Loc: 4 Room: [address] [place] [address] Type: ADM IN Attending Dr: Shant Villegas [...] planning Documented By: Ismael Huitron MD 11/20/22 3056 Signed By: <Electronically signed by Ismael Huitron MD> 11/20/[address] [facility] Work Phone: [phone] Progress note Author Sanjay Holt [facility] November 20, 2022 9:05am Note Date/Time November 20, 2022 9:05a m [facility] [address] [place] [address] Infect. Disease Progress Note Signed Patient: Lori Anton MR#: [id number] : 1965 Acct:[id number] Age/Sex: 57 / M Adm Date: 3 Loc: Room: [address] [place] [address] Type: ADM IN Attending Dr: Shant Villegas [...] 2 Mg Tab.Subl) 2 mg SUBLINGUAL BID [facility] Stop: 05/18/23 09:26 Last Admin: 11/20/22 08:23 Dose: 2 mg Docusate Sodium (Docusate 100 Mg Capsule) 100 mg PO BID PRN PRN Reason: Constipation Stop: 11/18/23 10:23 Enoxaparin Sodium (Enoxaparin 40 Mg/0.4 Ml Syringe) 40 mg SUBCUT DAILY@1000 [facility] Stop: 11/06/23 09:59 Last Admin: 11/19/22 09:06 Dose: 40 mg Fluoxetine HCl (Fluoxetine 20 Mg Capsule) 40 mg PO HS [facility] Stop: 11/20/23 21:59 Fluoxetine HCl (Fluoxetine 20 Mg Capsule) 20 mg PO DAILY@0600 [facility] Stop: 11/20/23 05:59 Last Admin: 11/20/22 06:04 Dose: 20 mg Heparin Sodium (Porcine) (Heparin-Lock 500 Unit/5 Ml Syringe) 0 unit IV-PUSH QSHIFT [facility] Stop: 11/14/23 21:59 Last Admin: 11/20/22 06:04 Dose: 2,000 unit Linezolid (Zyvox) 600 mg in 300 mls @ 300 mls/hr IV Q12H [facility] Last Admin: 11/20/22 00:33 Dose: 300 mls/hr Meropenem (Merrem) 1 gm in 100 mls @ 33.333 mls/hr IV Q8H [facility] Last Admin: 11/20/22 03:00 Dose: 33.33 mls/hr Lidocaine HCl (Lidocaine 1% Pf 5 Ml Inj.Zara) 10 ml INFILTRATN ONCE PRN PRN Reason: Pain Melatonin (Melatonin 5 Mg Tablet) 5 mg PO QHS [facility] Stop: 11/19/23 21:59 Last Admin: 11/19/22 21:12 Dose: 5 mg Metoprolol Tartrate (Metoprolol Tartrate 12.5 Mg Tablet) 12.5 mg PO BID [facility] Stop: 11/18/23 20:59 Last Admin: 11/20/22 08:22 [...] 10 Ml Syringe) 0 ml IV-PUSH QSHIFT [facility] Stop: 11/05/23 05:59 Last Admin: 11/20/22 06:04 [...] <Electronically signed by MD Sanjay Holt> 11/20/22904 [facility] Work Phone: [phone] Progress note Author Shant Villegas [facility] November 19, 2022 1:31pm Note Date/Time November 19, 2022 1:31p m [facility] [address] [place] [address] Hospitalist Progress Note Signed Patient: Lori Anton MR#: [id number] : 1965 Acct:[id number] Age/Sex: 57 / M Adm Date: 3 Loc: Room: [address] [place] [address] Type: ADM IN Attending Dr: Shant Villegas [...] cough, and right-sided chest pain to the [facility] ED and Transferred for the evaluation and [...] <Electronically signed by Shant Villegas MD> 11/19/[address] [facility] Work Phone: [phone] Progress note Author Ismael Huitron [facility] November 19, 2022 12:32pm Note Date/Time November 19, 2022 12:32 pm [facility] [address] [place] [address] Pulmonology Progress Note Signed Patient: Lori Anton MR#: [id number] : 1965 Acct:[id number] Age/Sex: 57 / M Adm Date: 3 Loc: Room: 6B1777-1 Type: ADM IN Attending Dr: Shant Villegas [...] signed by Ismael Huitron MD> 11/19/[address] [facility] Work Phone: [phone] 121-881105-13-2023 Progress note Author Sajnay Holt [facility] November 19, 2022 9:45am Note Date/Time November 19, 2022 9:45a m [facility] [address] [place] [address] Infect. Disease Progress Note Signed Patient: Lori Anton MR#: [id number] : 1965 Acct:[id number] Age/Sex: 57 / M Adm Date: 3 Loc: Room: [address] [place] [address] Type: ADM IN Attending Dr: Shant Villegas [...] 2 Mg Tab.Subl) 2 mg SUBLINGUAL BID [facility] Stop: 05/18/23 09:26 Last Admin: 11/19/22 09:33 Dose: 2 mg Docusate Sodium (Docusate 100 Mg Capsule) 100 mg PO BID PRN PRN Reason: Constipation Stop: 11/18/23 10:23 Enoxaparin Sodium (Enoxaparin 40 Mg/0.4 Ml Syringe) 40 mg SUBCUT DAILY@1000 [facility] Stop: 11/06/23 09:59 Last Admin: 11/19/22 09:06 Dose: 40 mg Fluoxetine HCl (Fluoxetine Soln 20 Mg/5 Ml) 40 mg PO HS [facility] Stop: 11/07/23 21:59 Last Admin: 11/16/22 21:14 Dose: 40 mg Fluoxetine HCl (Fluoxetine Soln 20 Mg/5 Ml) 20 mg PO DAILY@0600 [facility] Stop: 11/08/23 05:59 Last Admin: 11/17/22 05:13 Dose: 20 mg Heparin Sodium (Porcine) (Heparin-Lock 500 Unit/5 Ml Syringe) 0 unit IV-PUSH QSHIFT [facility] Stop: 11/14/23 21:59 Last Admin: 11/19/22 06:42 Dose: 500 unit Hydromorphone HCl (Hydromorphone 1 Mg/Ml Syringe) 1 mg IV-PUSH Q4H PRN PRN Reason: Pain Linezolid (Zyvox) 600 mg in 300 mls @ 300 mls/hr IV Q12H [facility] Last Admin: 11/18/22 22:59 Dose: 300 mls/hr Meropenem (Merrem) 1 gm in 100 mls @ 33.333 mls/hr IV Q8H [facility] Last Admin: 11/19/22 09:07 Dose: 33.33 mls/hr [...] 40 Mg Vial) 40 mg IV-PUSH DAILY [facility] Stop: 11/08/23 08:59 Last Admin: 11/19/22 09:06 [...] 10 Ml Syringe) 0 ml IV-PUSH QSHIFT [facility] Stop: 11/05/23 05:59 Last Admin: 11/19/22 06:43 Dose: 10 ml Sodium Chloride (Sodium Chloride 0.9 % 10 Ml Syringe) 10 ml IV-PUSH PRN PRN PRN Reason: Flush Stop: 11/07/23 08:37 Last Admin: 11/15/22 08:11 Dose: 10 ml Sodium Chloride (Sodium Chloride 0.9 % 10 Ml Vial.Pf) 10 ml INJECTION DAILY [facility] Stop: 11/08/23 08:59 Last Admin: 11/19/22 09:06 [...] meropenem. Only new culture result from the [facility] positive was corynebacterium. Patient clinically is better [...] <Electronically signed by MD Sanjay Holt> 11/19/2245 [facility] Work Phone: [phone] Progress note Author Shant Villegas [facility] November 18, 2022 12:45pm Note Date/Time November 18, 2022 12:44 pm [facility] [address] [place] [address] Hospitalist Progress Note Signed Patient: Lori Anton MR#: [id number] : 1965 Acct:[id number] Age/Sex: 57 / M Adm Date: 3 Loc: Room: [address] [place] [address] Type: ADM IN Attending Dr: Shant Villegas [...] cough, and right-sided chest pain to the [facility] ED and Transferred for the evaluation and [...] signed by Shant Villegas MD> 11/18/22 1245 [facility] Work Phone: [phone] Progress note Author Ismael Huitron [facility] November 18, 2022 12:09pm Note Date/Time November 18, 2022 11:33 am [facility] [address] [place] [address] Pulmonology Progress Note Signed Patient: Lori Anton MR#: [id number] : 1965 Acct:[id number] Age/Sex: 57 / M Adm Date: 3 Loc: Room: [address] [place] [address] Type: ADM IN Attending Dr: Shant Villegas [...] signed by Ismael Huitron MD> 11/18/[address] [facility] Work Phone: [phone] Progress note Author Sanjay Holt [facility] November 18, 2022 10:49am Note Date/Time November 18, 2022 10:49 am [facility] [address] [place] [address] Infect. Disease Progress Note Signed Patient: Lori Anton MR#: [id number] : 1965 Acct:[id number] Age/Sex: 57 / M Adm Date: 3 Loc: Room: 6P2742-7 Type: ADM IN Attending Dr: Shant Villegas [...] ml @ 33.333 mls/hr IV Q8H [facility] Rx#:[id number] fentaNYL 1,000 mcg-*D5W* 1,000 100 / 200 200 / 200 mcg In 100 ml @ 25 MCG/HR 2.5 mls/hr IV .Q24H [facility] Rx#: [id number] propofoL 1,000 mg In 100 ml @ 200 / 400 200 / 200 20 MCG/KG/MIN 12.6 mls/hr IV . Q7H57M [facility] Rx#:[id number] Tube Feeding 982 / 982 Output: Urine [...] Mg/0.4 Ml Syringe) 40 mg SUBCUT DAILY@1000 [facility] Stop: 11/06/23 09:59 Last Admin: 11/18/22 09:57 Dose: 40 mg Fluoxetine HCl (Fluoxetine Soln 20 Mg/5 Ml) 40 mg PO HS [facility] Stop: 11/07/23 21:59 Last Admin: 11/16/22 21:14 Dose: 40 mg Fluoxetine HCl (Fluoxetine Soln 20 Mg/5 Ml) 20 mg PO DAILY@0600 [facility] Stop: 11/08/23 05:59 Last Admin: 11/17/22 05:13 Dose: 20 mg Heparin Sodium (Porcine) (Heparin-Lock 500 Unit/5 Ml Syringe) 0 unit IV-PUSH QSHIFT [facility] Stop: 11/14/23 21:59 Last Admin: 11/18/22 06:37 Dose: 1,000 unit Linezolid (Zyvox) 600 mg in 300 mls @ 300 mls/hr IV Q12H [facility] Last Admin: 11/17/22 22:16 Dose: 300 mls/hr Meropenem (Merrem) 1 gm in 100 mls @ 33.333 mls/hr IV Q8H [facility] Last Admin: 11/18/22 01:54 Dose: 33.33 mls/hr [...] 12.5 Mg Tablet) 12.5 mg OG-TUBE BID [facility] Stop: 11/17/23 11:29 Last Admin: 11/18/22 09:57 [...] 10 Ml Syringe) 0 ml IV-PUSH QSHIFT [facility] Stop: 11/05/23 05:59 Last Admin: 11/18/22 06:38 [...] signed by MD Sanjay Holt> 11/18/[address] [facility] Work Phone: [phone] Progress note Author Sanjay Holt [facility] November 18, 2022 10:45am Note Date/Time November 17, 2022 9:25a m [facility] [address] [place] [address] Infect. Disease Progress Note Signed Patient: Lori Anton MR#: [id number] : 1965 Acct:[id number] Age/Sex: 57 / M Adm Date: 3 Loc: 4C Room: [address] [place] [address] Type: ADM IN Attending Dr: Shant Villegas [...] Mg/10 Ml Udc) 100 mg OG-TUBE BID [facility] Stop: 11/07/23 08:59 Last Admin: 11/17/22 08:39 Dose: 100 mg Enoxaparin Sodium (Enoxaparin 40 Mg/0.4 Ml Syringe) 40 mg SUBCUT DAILY@1000 [facility] Stop: 11/06/23 09:59 Last Admin: 11/16/22 09:26 Dose: 40 mg Fluoxetine HCl (Fluoxetine Soln 20 Mg/5 Ml) 40 mg PO HS [facility] Stop: 11/07/23 21:59 Last Admin: 11/16/22 21:14 Dose: 40 mg Fluoxetine HCl (Fluoxetine Soln 20 Mg/5 Ml) 20 mg PO DAILY@0600 [facility] Stop: 11/08/23 05:59 Last Admin: 11/17/22 05:13 Dose: 20 mg Heparin Sodium (Porcine) (Heparin-Lock 500 Unit/5 Ml Syringe) 0 unit IV-PUSH QSHIFT [facility] Stop: 11/14/23 21:59 Last Admin: 11/17/22 05:12 Dose: 1,500 unit Fentanyl (Fentanyl 1,000 Mcg/100 Ml D5w) 1,000 mcg in 100 mls @ 2.5 mls/hr IV .Q24H [facility]; Protocol Last Titration: 11/17/22 07:52 Dose: 125 mcg/hr, 12.5 mls/hr Propofol (Diprivan) 1,000 mg in 100 mls @ 12.6 mls/hr IV .Q7H57M [facility]; Protocol Stop: 11/07/23 07:59 Last Titration: 11/17/22 07:52 Dose: 30 mcg/kg/min, 18.9 mls/hr Midazolam HCl (Versed) 100 mg in 100 mls @ 1 mls/hr IV .Q24H [facility]; Protocol Stop: 05/08/23 10:59 Last Admin: 11/16/22 [...] signed by MD Sanjay Holt> 11/18/[address] [facility] Work Phone: [phone] Progress note Author Shant Villegas [facility] November 17, 2022 3:17pm Note Date/Time November 17, 2022 3:17p [facility] [address] [place] [address] Hospitalist Progress Note Signed Patient: Lori Anton MR#: [id number] : 1965 Acct:[id number] Age/Sex: 57 / M Adm Date: 3 Loc: Room: [address] [place] [address] Type: ADM IN Attending Dr: Shant Villegas [...] cough, and right-sided chest pain to the [facility] ED and Transferred for the evaluation and [...] <Electronically signed by Shant Villegas MD> 11/17/[address] [facility] Work Phone: [phone] Progress note Author Reginald Arroyo [facility] November 17, 2022 10:25am Note Date/Time November 17, 2022 8:48a m [facility] [address] [place] [address] Pulmonology Progress Note Signed Patient: Lori Anton MR#: [id number] : 1965 Acct:[id number] Age/Sex: 57 / M Adm Date: 3 Loc: Room: 9F9880-6 Type: ADM IN Attending Dr: Shant Villegas [...] colon. Documented By: Reginald Arroyo MD 3 [id number] Signed By: <Electronically signed by MD Reginald Arroyo> 11/17/[address] [place] [address] Ctr Work Phone: [phone] Progress note Author Shant Villegas [facility] November 16, 2022 3:46pm Note Date/Time November 16, 2022 3:35p m [facility] [address] [place] [address] Hospitalist Progress Note Signed Patient: Lori Anton MR#: [id number] : 1965 Acct:[id number] Age/Sex: 57 / M Adm Date: 3 Loc: Room: 7Q2966-2 Type: ADM IN Attending Dr: Shant Villegas [...] cough, and right-sided chest pain to the [facility] ED and Transferred for the evaluation and treatment of Bacterial pneumonia Bacterial pneumonia/Parainfluenza Infection Since patient remains intubated and had a spike of fever this morning. CTA chest obtained earlier today showed consolidative changes involving lower lobes and cavitary component in the right middle lobe. Patient being followed by pulmonary service and infectious disease and will defer further management to [facility] pulmonary service. Currently is off antibiotics. He [...] <Electronically signed by Shant Villegas MD> 11/16/22 1543 [facility] Work Phone: [phone] Progress note Author Reginald Arroyo [facility] November 16, 2022 11:03am Note Date/Time November 16, 2022 8:20a m [facility] [address] [place] [address] Pulmonology Progress Note Signed Patient: Lori Anton MR#: [id number] : 1965 Acct:[id number] Age/Sex: 57 / M Adm Date: 3 Loc: Room: [address] [place] [address] Type: ADM IN Attending Dr: Shant Villegas [...] <Electronically signed by MD Reginald Arroyo> 11/16/[address] [facility] Work Phone: [phone] Progress note Author Sanjay Holt [facility] November 16, 2022 9:24am Note Date/Time November 16, 2022 9:05a [facility] [address] [place] [address] Infect. Disease Progress Note Signed Patient: Lori Anton MR#: [id number] : 1965 Acct:[id number] Age/Sex: 57 / M Adm Date: 3 Loc: Room: [address] [place] [address] Type: ADM IN Attending Dr: Shant Villegas [...] Puff/18 Gm Inhaler) 6 puff VENT Q6HR [facility] Stop: 11/07/23 11:59 Last Admin: 11/16/22 05:08 Dose: 6 puff Amlodipine Besylate (Amlodipine 10 Mg Tablet) 10 mg PO DAILY@0600 [facility] Stop: 11/05/23 08:59 Last Admin: 11/08/22 07:00 Dose: 10 mg Buprenorphine HCl (Buprenorphine Hcl 2 Mg Tab.Subl) 2 mg SUBLINGUAL BID@0600,1800 [facility] Stop: 05/06/23 05:59 Last Admin: 11/07/22 06:38 Dose: 2 mg Carvedilol (Carvedilol 12.5 Mg Tablet) 12.5 mg PO BID@0600,1800 [facility] Stop: 11/06/23 20:59 Last Admin: 11/08/22 07:00 Dose: 12.5 mg Chlorhexidine Gluconate (Chlorhexidine Gluconate 0.12% 15 Ml Udc) 15 ml MUCOUS MEM BID [facility] Stop: 11/07/23 09:09 Last Admin: 11/16/22 08:46 Dose: 15 ml Docusate Sodium (Docusate Liquid 100 Mg/10 Ml Udc) 100 mg OG-TUBE BID [facility] Stop: 11/07/23 08:59 Last Admin: 11/16/22 08:46 Dose: 100 mg Enoxaparin Sodium (Enoxaparin 40 Mg/0.4 Ml Syringe) 40 mg SUBCUT DAILY@1000 [facility] Stop: 11/06/23 09:59 Last Admin: 11/15/22 10:16 Dose: 40 mg Fluoxetine HCl (Fluoxetine Soln 20 Mg/5 Ml) 40 mg PO HS [facility] Stop: 11/07/23 21:59 Last Admin: 11/15/22 22:31 Dose: 40 mg Fluoxetine HCl (Fluoxetine Soln 20 Mg/5 Ml) 20 mg PO DAILY@0600 [facility] Stop: 11/08/23 05:59 Last Admin: 11/16/22 05:39 Dose: 20 mg Heparin Sodium (Porcine) (Heparin-Lock 500 Unit/5 Ml Syringe) 0 unit IV-PUSH QSHIFT [facility] Stop: 11/14/23 21:59 Last Admin: 11/16/22 05:47 Dose: 1,000 unit Fentanyl (Fentanyl 1,000 Mcg/100 Ml D5w) 1,000 mcg in 100 mls @ 2.5 mls/hr IV .Q24H [facility]; Protocol Last Admin: 11/15/22 19:06 Dose: 200 mcg/hr, 20 mls/hr Propofol (Diprivan) 1,000 mg in 100 mls @ 12.6 mls/hr IV .Q7H57M [facility]; Protocol Stop: 11/07/23 07:59 Last Admin: 11/16/22 08:47 Dose: 20 mcg/kg/min, 12.6 mls/hr Midazolam HCl (Versed) 100 mg in 100 mls @ 1 mls/hr IV .Q24H [facility]; Protocol Stop: 05/08/23 10:59 Last Titration: 11/16/22 08:48 Dose: 5 mg/hr, 5 mls/hr Sodium Chloride (0.45% Sodium Chloride 1,000 Ml) 1,000 mls @ 150 mls/hr IV .Q6H40M [facility] Stop: 11/16/22 15:39 Lidocaine HCl (Lidocaine 1% Pf 5 Ml Inj.Zara) 10 ml INFILTRATN ONCE PRN PRN Reason: Pain Lisinopril (Lisinopril 20 Mg Tablet) 20 mg PO DAILY@0600 [facility] Stop: 11/06/23 08:59 Last Admin: 11/08/22 07:00 [...] 40 Mg Vial) 40 mg IV-PUSH DAILY [facility] Stop: 11/08/23 08:59 Last Admin: 11/16/22 08:46 Dose: 40 mg Polyethylene Glycol (Polyethylene Glycol 3350 17 Gm Powd.Pack) 17 gm OG-TUBE DAILY PRN PRN Reason: Constipation Stop: 11/14/23 08:52 Last Admin: 11/15/22 18:26 Dose: 17 gm Sennosides (Sennosides Syrup 8.8 Mg/5 Ml Udc) 8.8 mg OG-TUBE BID [facility] Stop: 11/16/23 08:59 Sodium Chloride (Sodium Chloride 0.9 % 10 Ml Syringe) 0 ml IV-PUSH QSHIFT [facility] Stop: 11/05/23 05:59 Last Admin: 11/16/22 05:47 Dose: 20 ml Sodium Chloride (Sodium Chloride 0.9 % 10 Ml Syringe) 10 ml IV-PUSH PRN PRN PRN Reason: Flush Stop: 11/07/23 08:37 Last Admin: 11/15/22 08:11 Dose: 10 ml Sodium Chloride (Sodium Chloride 0.9 % 10 Ml Vial.Pf) 10 ml INJECTION DAILY [facility] Stop: 11/08/23 08:59 Last Admin: 11/16/22 08:46 [...] elevated. On admission respiratory PCR panel at [place] without targeted pathogen but parainfluenza 3 virus targeted here. Legionella urine antigen negative, Legionella antibodies negative. Urine strep antigen negative. HIV negative. At this time he is off antibiotics and has been for only a day. Documented By: Sanjay Holt MD 11/16/2258 Signed By: <Electronically signed by MD Sanjay Holt> 11/16/2224 [facility] Work Phone: 1(130) [phone] Progress note Author Shant Villegas [facility] November 15, 2022 2:30pm Note Date/Time November 15, 2022 2:30pm [facility] [address] [place] [address] Hospitalist Progress Note Signed Patient: Lori Anton MR#: [id number] : 1965 Acct:[id number] Age/Sex: 57 / M Adm Date: 3 Loc: Room: [address] [place] [address] Type: ADM IN Attending Dr: Shant Villegas [...] cough, and right-sided chest pain to the [facility] ED and Transferred for the evaluation and treatment of Bacterial pneumonia Bacterial pneumonia/Parainfluenza Infection Per chest CTA report done at [facility], there is evidence of 2.6 cm right [...] . Documented By: Shant Villegas MD 11/15/22 3907 Signed By: <Electronically signed by Shant Villegas MD> 11/15/[address] [facility] Work Phone: 1(355) 579-821005-09-2023 Progress note Author Reginald Arroyo [facility] November 15, 2022 12:14pm Note Date/Time November 15, 2022 8:22am [facility] [address] [place] [address] Pulmonology Progress Note Signed Patient: Lori Anton MR#: [id number] : 1965 Acct:[id number] Age/Sex: 57 / M Adm Date: 3 Loc: Room: [address] [place] [address] Type: ADM IN Attending Dr: Shant Villegas [...] signed by MD Reginald Arroyo> 11/15/[address] [facility] Work Phone: 1(777) 425-899405-09-2023 Progress note Author Sanjay Holt [facility] November 15, 2022 9:37am Note Date/Time November 15, 2022 9:37am [facility] [address] [place] [address] Infect. Disease Progress Note Signed Patient: Lori Anton MR#: [id number] : 1965 Acct:[id number] Age/Sex: 57 / M Adm Date: 3 Loc: Room: [address] [place] [address] Type: ADM IN Attending Dr: Shant Villegas [...] 10 Mg Tablet) 10 mg PO DAILY@0600 [facility] Stop: 11/05/23 08:59 Last Admin: 11/08/22 07:00 Dose: 10 mg Budesonide (Budesonide 0.5 Mg/2 Ml Ampul.Neb) 0.5 mg INHALATION BID [facility] Stop: 11/05/23 11:39 Last Admin: 11/06/22 20:43 Dose: 0.5 mg Buprenorphine HCl (Buprenorphine Hcl 2 Mg Tab.Subl) 2 mg SUBLINGUAL BID@0600,1800 [facility] Stop: 05/06/23 05:59 Last Admin: 11/07/22 06:38 Dose: 2 mg Carvedilol (Carvedilol 12.5 Mg Tablet) 12.5 mg PO BID@0600,1800 [facility] Stop: 11/06/23 20:59 Last Admin: 11/08/22 07:00 Dose: 12.5 mg Chlorhexidine Gluconate (Chlorhexidine Gluconate 0.12% 15 Ml Udc) 15 ml MUCOUS MEM BID [facility] Stop: 11/07/23 09:09 Last Admin: 11/15/22 08:10 Dose: 15 ml Docusate Sodium (Docusate Liquid 100 Mg/10 Ml Udc) 100 mg OG-TUBE BID [facility] Stop: 11/07/23 08:59 Last Admin: 11/15/22 08:10 Dose: 100 mg Enoxaparin Sodium (Enoxaparin 40 Mg/0.4 Ml Syringe) 40 mg SUBCUT DAILY@1000 [facility] Stop: 11/06/23 09:59 Last Admin: 11/14/22 15:06 Dose: 40 mg Fluoxetine HCl (Fluoxetine Soln 20 Mg/5 Ml) 40 mg PO HS [facility] Stop: 11/07/23 21:59 Last Admin: 11/14/22 21:47 Dose: 40 mg Fluoxetine HCl (Fluoxetine Soln 20 Mg/5 Ml) 20 mg PO DAILY@0600 [facility] Stop: 11/08/23 05:59 Last Admin: 11/15/22 05:47 Dose: 20 mg Guaifenesin (Guaifenesin 600 Mg Tab.Er.12h) 1,200 mg PO BID [facility] Stop: 11/06/23 12:54 Last Admin: 11/06/22 20:51 Dose: 1,200 mg Heparin Sodium (Porcine) (Heparin-Lock 500 Unit/5 Ml Syringe) 0 unit IV-PUSH QSHIFT [facility] Stop: 11/14/23 21:59 Last Admin: 11/15/22 05:46 Dose: 1,000 unit Levofloxacin (Levaquin) 750 mg in 150 mls @ 100 mls/hr IV Q24H [facility] Last Admin: 11/14/22 21:45 Dose: 100 mls/hr Clindamycin Phosphate (Cleocin) 600 mg in 50 mls @ 100 mls/hr IV Q8H [facility] Last Admin: 11/15/22 02:46 Dose: 100 mls/hr Fentanyl (Fentanyl 1,000 Mcg/100 Ml D5w) 1,000 mcg in 100 mls @ 2.5 mls/hr IV .Q24H [facility]; Protocol Last Admin: 11/15/22 07:59 Dose: 200 mcg/hr, 20 mls/hr Propofol (Diprivan) 1,000 mg in 100 mls @ 12.6 mls/hr IV .Q7H57M [facility]; Protocol Stop: 11/07/23 07:59 Last Admin: 11/15/22 06:38 Dose: 35 mcg/kg/min, 22.05 mls/hr Midazolam HCl (Versed) 100 mg in 100 mls @ 1 mls/hr IV .Q24H [facility]; Protocol Stop: 05/08/23 10:59 Last Admin: 11/14/22 21:46 Dose: Not Given Lidocaine HCl (Lidocaine 1% Pf 5 Ml Inj.Zara) 10 ml INFILTRATN ONCE PRN PRN Reason: Pain Lisinopril (Lisinopril 20 Mg Tablet) 20 mg PO DAILY@0600 [facility] Stop: 11/06/23 08:59 Last Admin: 11/08/22 07:00 [...] Mg/5 Ml Udc) 8.8 mg PO BID [facility] Stop: 11/07/23 08:59 Last Admin: 11/15/22 08:10 [...] days. On admission respiratory PCR panel at [place] without targeted pathogen but parainfluenza 3 virus [...] <Electronically signed by MD Sanjay Holt> 11/15/2237 [facility] Work Phone: [phone] 382-936305-08-2023 [facility] Progress note Author Shant Villegas [facility] November 14, 2022 12:52pm Note Date/Time November 14, 2022 12:52p m [facility] [address] [place] [address] Hospitalist Progress Note Signed Patient: Lori Anton MR#: [id number] : 1965 Acct:[id number] Age/Sex: 57 / M Adm Date: 3 Loc: Room: [address] [place] [address] Type: ADM IN Attending Dr: Shant Villegas MD Copies to: ~ Date of Service: 11/14/2022 Subjective Subjective Narrative: On examination patient remains intubated and sedated. Currently PEEP of 10 trdw528% FiO2. Plan for bronchoscopy later today by pulmonary service. He is also being followed by ID. Currently on Versed, fentanyl and propofol for sedation. No growth on blood cultures so far. With initial sputum culture growing Candidaonly. Assessment And Plan 57M with PMH of HTN, DJD, Tobacco abuse, Depression who p/w ever, cough, and right-sided chest pain to the [facility] ED and Transferred for the evaluation and treatment of Bacterial pneumonia Bacterial pneumonia/Parainfluenza Infection Per chest CTA report done at [facility], there is evidence of 2.6 cm right [...] 11/13/22 22:31 Levaquin IV 100 mls/hr Q24H [facility] Administration Clindamycin Phosphate 600 mg in 50 [...] <Electronically signed by Shant Villegas MD> 11/14/[address] [facility] Work Phone: [phone] Progress note Author Reginald Arroyo [facility] November 14, 2022 12:46pm Note Date/Time November 14, 2022 8:51am [facility] [address] [place] [address] Pulmonology Progress Note Signed Patient: Lori Anton MR#: [id number] : 1965 Acct:[id number] Age/Sex: 57 / M Adm Date: 3 Loc: Room: [address] [place] [address] Type: ADM IN Attending Dr: Shant Villegas [...] cultures. Documented By: Reginald Arroyo MD [id number] Signed By: <Electronically signed by MD Reginald Arroyo> 11/14/[address] [facility] Work Phone: [phone] Progress note Author Sanjay Holt [facility] November 14, 2022 8:59am Note Date/Time November 14, 2022 8:59am [facility] [address] [place] [address] Infect. Disease Progress Note Signed Patient: Lori Anton MR#: [id number] : 1965 Acct:[id number] Age/Sex: 57 / M Adm Date: 3 Loc: Room: [address] [place] [address] Type: ADM IN Attending Dr: Rubi Ramos [...] Puff/18 Gm Inhaler) 6 puff VENT Q6HR [facility] Stop: 11/07/23 11:59 Last Admin: 11/14/22 05:19 Dose: 6 puff Albuterol/Ipratropium (Ipratropium/Albuterol 0.5-3 Mg 3 Ml Ampul.Neb) 3 ml INHALATION QID.RESP [facility] Stop: 11/05/23 07:59 Last Admin: 11/07/22 09:05 Dose: Not Given Amlodipine Besylate (Amlodipine 10 Mg Tablet) 10 mg PO DAILY@0600 [facility] Stop: 11/05/23 08:59 Last Admin: 11/08/22 07:00 Dose: 10 mg Budesonide (Budesonide 0.5 Mg/2 Ml Ampul.Neb) 0.5 mg INHALATION BID [facility] Stop: 11/05/23 11:39 Last Admin: 11/06/22 20:43 Dose: 0.5 mg Bumetanide (Bumetanide 1 Mg/4 Ml Vial) 1 mg IV-PUSH BID@0800,1600 [facility] Stop: 11/14/22 16:01 Last Admin: 11/13/22 16:15 Dose: 1 mg Buprenorphine HCl (Buprenorphine Hcl 2 Mg Tab.Subl) 2 mg SUBLINGUAL BID@06,1800 [facility] Stop: 05/06/23 05:59 Last Admin: 11/07/22 06:38 Dose: 2 mg Carvedilol (Carvedilol 12.5 Mg Tablet) 12.5 mg PO BID@06,1800 [facility] Stop: 11/06/23 20:59 Last Admin: 11/08/22 07:00 Dose: 12.5 mg Chlorhexidine Gluconate (Chlorhexidine Gluconate 0.12% 15 Ml Udc) 15 ml MUCOUS MEM BID [facility] Stop: 11/07/23 09:09 Last Admin: 11/13/22 22:31 Dose: 15 ml Docusate Sodium (Docusate Liquid 100 Mg/10 Ml Udc) 100 mg OG-TUBE BID [facility] Stop: 11/07/23 08:59 Last Admin: 11/13/22 22:31 Dose: 100 mg Enoxaparin Sodium (Enoxaparin 40 Mg/0.4 Ml Syringe) 40 mg SUBCUT DAILY@1000 [facility] Stop: 11/06/23 09:59 Last Admin: 11/13/22 09:16 Dose: 40 mg Fluoxetine HCl (Fluoxetine Soln 20 Mg/5 Ml) 40 mg PO HS [facility] Stop: 11/07/23 21:59 Last Admin: 11/13/22 22:32 Dose: 40 mg Fluoxetine HCl (Fluoxetine Soln 20 Mg/5 Ml) 20 mg PO DAILY@0600 [facility] Stop: 11/08/23 05:59 Last Admin: 11/14/22 06:31 Dose: 20 mg Guaifenesin (Guaifenesin 600 Mg Tab.Er.12h) 1,200 mg PO BID [facility] Stop: 11/06/23 12:54 Last Admin: 11/06/22 20:51 Dose: 1,200 mg Levofloxacin (Levaquin) 750 mg in 150 mls @ 100 mls/hr IV Q24H [facility] Last Admin: 11/13/22 22:31 Dose: 100 mls/hr Clindamycin Phosphate (Cleocin) 600 mg in 50 mls @ 100 mls/hr IV Q8H [facility] Last Admin: 11/14/22 01:20 Dose: 100 mls/hr Fentanyl (Fentanyl 1,000 Mcg/100 Ml D5w) 1,000 mcg in 100 mls @ 2.5 mls/hr IV .Q24H [facility]; Protocol Last Admin: 11/14/22 04:30 Dose: 200 mcg/hr, 20 mls/hr Propofol (Diprivan) 1,000 mg in 100 mls @ 12.6 mls/hr IV .Q7H57M [facility]; Protocol Stop: 11/07/23 07:59 Last Admin: 11/14/22 06:30 Dose: 50 mcg/kg/min, 31.5 mls/hr Midazolam HCl (Versed) 100 mg in 100 mls @ 1 mls/hr IV .Q24H [facility]; Protocol Stop: 05/08/23 10:59 Last Admin: 11/13/22 22:31 Dose: Not Given Insulin Aspart (Insulin Aspart 300 Units/3 Ml Insuln.Pen) 0 units SUBCUT Q6HR [facility]; Protocol Stop: 11/08/23 11:59 Last Admin: 11/14/22 06:31 Dose: Not Given Lidocaine HCl (Lidocaine 1% Pf 5 Ml Inj.Zara) 10 ml INFILTRATN ONCE PRN PRN Reason: Pain Lisinopril (Lisinopril 20 Mg Tablet) 20 mg PO DAILY@0600 [facility] Stop: 11/06/23 08:59 Last Admin: 11/08/22 07:00 [...] Mg/5 Ml Udc) 8.8 mg PO BID [facility] Stop: 11/07/23 08:59 Last Admin: 11/13/22 22:31 Dose: 8.8 mg Sodium Chloride (Sodium Chloride 0.9 % 10 Ml Syringe) 0 ml IV-PUSH QSHIFT [facility] Stop: 11/05/23 05:59 Last Admin: 11/14/22 06:31 Dose: 10 ml Sodium Chloride (Sodium Chloride 0.9 % 10 Ml Syringe) 10 ml IV-PUSH PRN PRN PRN Reason: Flush Stop: 11/07/23 08:37 Sodium Chloride (Sodium Chloride 0.9 % 10 Ml Vial.Pf) 10 ml INJECTION DAILY [facility] Stop: 11/08/23 08:59 Last Admin: 11/13/22 09:16 [...] 3days. On admission respiratory PCR panel at [place] without targeted pathogen but parainfluenza 3 virus [...] Signed By: <Electronically signed by MD Sanjay oHlt> 11/14/[address] [facility] Work Phone: [phone] Progress note Author Rubi Ramos [facility] November 13, 2022 5:32pm Note Date/Time November 13, 2022 2:04pm [facility] [address] [place] [address] Hospitalist Progress Note Signed Patient: Lori Anton MR#: [id number] : 1965 Acct:[id number] Age/Sex: 57 / M Adm Date: 3 Loc: Room: [address] [place] [address] Type: ADM IN Attending Dr: Rubi Ramos MD Copies to: ~ Date of Service: 11/13/2022 Subjective Subjective Narrative: Assessment And Plan 57M with PMH of HTN, DJD, Tobacco abuse, Depression who p/w ever, cough, and right-sided chest pain to the [facility] ED and Transferred for the evaluation and treatment of Bacterial pneumonia Bacterial pneumonia/Parainfluenza Infection leukocytosis is better , no fever today Per chest CTA report done at [facility], there is evidence of 2.6 cm right [...] Mg/4 Ml Vial IV-PUSH 11/14/22 16:01 BID@0800,1600 [facility] Buprenorphine HCl 2 mg 11/07/22 06:00 11/07/22 [...] Insuln.Pen SUBCUT 11/08/23 11:59 Not Given Q6HR [facility] Protocol Lidocaine HCl 10 ml 11/09/22 13:55 [...] <Electronically signed by Rubi Ramos MD> 11/13/[address] [facility] Work Phone: [phone] Progress note Author Reginald Arroyo [facility] November 13, 2022 10:56am Note Date/Time November 13, 2022 9:03am [facility] [address] [place] [address] Pulmonology Progress Note Signed Patient: Lori Anton MR#: [id number] : 1965 Acct:[id number] Age/Sex: 57 / M Adm Date: 3 Loc: Room: [address] [place] [address] Type: ADM IN Attending Dr: Rubi Ramos [...] <Electronically signed by MD Reginald Arroyo> 11/13/[address] [facility] Work Phone: [phone] Progress note Author Rubi Ramos [facility] November 12, 2022 6:19pm Note Date/Time November 12, 2022 4:48pm [facility] [address] [place] [address] Hospitalist Progress Note Signed Patient: Lori Anton MR#: [id number] : 1965 Acct:[id number] Age/Sex: 57 / M Adm Date: 3 Loc: Room: [address] [place] [address] Type: ADM IN Attending Dr: Rubi Ramos MD Copies to: ~ Date of Service: 11/12/2022 Subjective Subjective Narrative: Assessment And Plan 57M with PMH of HTN, DJD, Tobacco abuse, Depression who p/w ever, cough, and right-sided chest pain to the [facility] ED and Transferred for the evaluation and treatment of Bacterial pneumonia Bacterial pneumonia/Parainfluenza Infection still have leukocytosis (he is on steroids) , no fever today Per chest CTA report done at [facility], there is evidence of 2.6 cm right [...] Insuln.Pen SUBCUT 11/08/23 11:59 Not Given Q6HR [facility] Protocol Lidocaine HCl 10 ml 11/09/22 13:55 Lidocaine 1% Pf 5 Ml Inj.Zara INFILTRATN ONCE PRN Pain Lisinopril 20 mg 11/07/22 06:00 11/08/22 07:00 Lisinopril 20 Mg Tablet PO 11/06/23 08:59 20 mg DAILY@0600 [facility] Administration Magnesium Hydroxide 30 ml 11/07/22 07:45 [...] 11/12/22 1644 Signed By: <Electronically signed by Ruib Ramos MD> 11/12/[address] [facility] Work Phone: [phone] Progress note Author Reginald Arroyo [facility] November 12, 2022 2:57pm Note Date/Time November 12, 2022 8:07am [facility] [address] [place] [address] Pulmonology Progress Note Signed Patient: Lori Anton MR#: [id number] : 1965 Acct:[id number] Age/Sex: 57 / M Adm Date: 3 Loc: Room: [address] [place] [address] Type: ADM IN Attending Dr: Rubi Ramos [...] <Electronically signed by MD Reginald Arroyo> 11/12/[address] [facility] Work Phone: [phone] Progress note Author Rubi Ramos [facility] November 12, 2022 1:03am Note Date/Time November 11, 2022 5:50pm [facility] [address] [place] [address] Hospitalist Progress Note Signed Patient: Lori Anton MR#: [id number] : 1965 Acct:[id number] Age/Sex: 57 / M Adm Date: 3 Loc: Room: [address] [place] [address] Type: ADM IN Attending Dr: Rubi Ramos MD Copies to: ~ Date of Service: 11/11/2022 Subjective Subjective Narrative: Assessment And Plan 57M with PMH of HTN, DJD, Tobacco abuse, Depression who p/w ever, cough, and right-sided chest pain to the [facility] ED and Transferred for the evaluation and treatment of Bacterial pneumonia Bacterial pneumonia/Parainfluenza Infection still have leukocytosis (he is on steroids) , borderline fever at night Per chest CTA report done at [facility], there is evidence of 2.6 cm right [...] signed by Rubi Ramos MD> 11/12/[address] [facility] Work Phone: [phone] Progress note Author Reginald Arroyo [facility] November 11, 2022 2:52pm Note Date/Time November 11, 2022 2:42pm [facility] [address] [place] [address] Pulmonology Progress Note Signed Patient: Lori Anton MR#: [id number] : 1965 Acct:[id number] Age/Sex: 57 / M Adm Date: 3 Loc: Room: [address] [place] [address] Type: ADM IN Attending Dr: Rubi Ramos [...] signed by MD Reginald Arroyo> 11/11/[address] [facility] Work Phone: [phone] Progress note Author Sanjay Holt [facility] November 11, 2022 11:18am Note Date/Time November 11, 2022 11:18a m [facility] [address] [place] [address] Infect. Disease Progress Note Signed Patient: Lori Anton MR#: [id number] : 1965 Acct:[id number] Age/Sex: 57 / M Adm Date: 3 Loc: Room: [address] [place] [address] Type: ADM IN Attending Dr: Rubi Ramos [...] 50 ml @ 100 mls/hr IV Q8H [facility] Rx#:[id number] fentaNYL 1,000 mcg-*D5W* 1,000 100 / 400 200 / 200 mcg In 100 ml @ 25 MCG/HR 2.5 mls/hr IV .Q24H [facility] Rx#: [id number] propofoL 1,000 mg In 100 ml @ 200 / 600 200 / 300 100 / 300 20 MCG/KG/MIN 12.6 mls/hr IV . Q7H57M [facility] Rx#:[id number] Tube Feeding 480 / 1440 480 / [...] Appearance Clear Urine pH 7.5 Ur Specific Cyrus 1.016 Urine Protein Negative Urine Glucose (UA) [...] Puff/18 Gm Inhaler) 6 puff VENT Q6HR [facility] Stop: 11/07/23 11:59 Last Admin: 11/11/22 05:23 Dose: 6 puff Albuterol/Ipratropium (Ipratropium/Albuterol 0.5-3 Mg 3 Ml Ampul.Neb) 3 ml INHALATION QID.RESP [facility] Stop: 11/05/23 07:59 Last Admin: 11/07/22 09:05 Dose: Not Given Amlodipine Besylate (Amlodipine 10 Mg Tablet) 10 mg PO DAILY@0600 [facility] Stop: 11/05/23 08:59 Last Admin: 11/08/22 07:00 Dose: 10 mg Budesonide (Budesonide 0.5 Mg/2 Ml Ampul.Neb) 0.5 mg INHALATION BID [facility] Stop: 11/05/23 11:39 Last Admin: 11/06/22 20:43 Dose: 0.5 mg Buprenorphine HCl (Buprenorphine Hcl 2 Mg Tab.Subl) 2 mg SUBLINGUAL BID@0600,1800 [facility] Stop: 05/06/23 05:59 Last Admin: 11/07/22 06:38 Dose: 2 mg Carvedilol (Carvedilol 12.5 Mg Tablet) 12.5 mg PO BID@0600,1800 [facility] Stop: 11/06/23 20:59 Last Admin: 11/08/22 07:00 Dose: 12.5 mg Chlorhexidine Gluconate (Chlorhexidine Gluconate 0.12% 15 Ml Udc) 15 ml MUCOUS MEM BID [facility] Stop: 11/07/23 09:09 Last Admin: 11/11/22 08:53 Dose: 15 ml Docusate Sodium (Docusate Liquid 100 Mg/10 Ml Udc) 100 mg OG-TUBE BID [facility] Stop: 11/07/23 08:59 Last Admin: 11/11/22 08:53 Dose: 100 mg Enoxaparin Sodium (Enoxaparin 40 Mg/0.4 Ml Syringe) 40 mg SUBCUT DAILY@1000 [facility] Stop: 11/06/23 09:59 Last Admin: 11/11/22 11:08 Dose: 40 mg Fluoxetine HCl (Fluoxetine Soln 20 Mg/5 Ml) 40 mg PO HS [facility] Stop: 11/07/23 21:59 Last Admin: 11/10/22 21:53 Dose: 40 mg Fluoxetine HCl (Fluoxetine Soln 20 Mg/5 Ml) 20 mg PO DAILY@0600 [facility] Stop: 11/08/23 05:59 Last Admin: 11/11/22 06:16 Dose: 20 mg Guaifenesin (Guaifenesin 600 Mg Tab.Er.12h) 1,200 mg PO BID [facility] Stop: 11/06/23 12:54 Last Admin: 11/06/22 20:51 Dose: 1,200 mg Levofloxacin (Levaquin) 750 mg in 150 mls @ 100 mls/hr IV Q24H [facility] Last Admin: 11/10/22 21:53 Dose: 100 mls/hr Clindamycin Phosphate (Cleocin) 600 mg in 50 mls @ 100 mls/hr IV Q8H [facility] Last Admin: 11/11/22 11:08 Dose: 100 mls/hr Fentanyl (Fentanyl 1,000 Mcg/100 Ml D5w) 1,000 mcg in 100 mls @ 2.5 mls/hr IV .Q24H [facility]; Protocol Last Admin: 11/11/22 07:45 Dose: 200 mcg/hr, 20 mls/hr Propofol (Diprivan) 1,000 mg in 100 mls @ 12.6 mls/hr IV .Q7H57M [facility]; Protocol Stop: 11/07/23 07:59 Last Admin: 11/11/22 08:52 Dose: 50 mcg/kg/min, 31.5 mls/hr Sodium Chloride (0.9% Sodium Chloride 1,000 Ml) 1,000 mls @ 75 mls/hr IV .[id number] [facility] Stop: 11/07/23 09:59 Last Admin: 11/10/22 23:51 Dose: Not Given Midazolam HCl (Versed) 100 mg in 100 mls @ 1 mls/hr IV .Q24H [facility]; Protocol Stop: 05/08/23 10:59 Last Admin: 11/11/22 11:08 Dose: 6 mg/hr, 6 mls/hr Insulin Aspart (Insulin Aspart 300 Units/3 Ml Insuln.Pen) 0 units SUBCUT Q6HR [facility]; Protocol Stop: 11/08/23 11:59 Last Admin: 11/11/22 [...] 20 Mg Tablet) 20 mg PO DAILY@0600 [facility] Stop: 11/06/23 08:59 Last Admin: 11/08/22 07:00 Dose: 20 mg Magnesium Hydroxide (Magnesium Hydroxide Susp 30 Ml Udc) 30 ml PO DAILY PRN PRN Reason: Constipation Stop: 11/07/23 07:44 Methylprednisolone Sodium Succinate (Methylprednisolone Sod Succ/Pf 40 Mg/Ml (1ml) Vial) 40 mg IV-PUSH DAILY [facility] Stop: 11/10/23 08:59 Last Admin: 11/11/22 08:53 Dose: 40 mg Metoprolol Tartrate (Metoprolol Tartrate 5 Mg/5 Ml Vial) 5 mg IV-PUSH Q5M PRN PRN Reason: Tachyarrhythmias Last Admin: 11/07/22 05:25 Dose: 5 mg Nicotine (Nicotine Patch 21 Mg/24hr 1 Each Patch.Td24) 1 each TRANSDERML DAILY PRN PRN Reason: Nicotine Cravings Stop: 12/16/22 09:01 Pantoprazole Sodium (Pantoprazole 40 Mg Vial) 40 mg IV-PUSH DAILY [facility] Stop: 11/08/23 08:59 Last Admin: 11/11/22 08:53 Dose: 40 mg Potassium Chloride (Potassium Chloride Er 20 Meq Tab.Er.Prt) 40 meq PO DAILY PRN PRN Reason: Hypokalemia Stop: 11/05/23 06:40 Last Admin: 11/05/22 08:43 Dose: 40 meq Sennosides (Sennosides Syrup 8.8 Mg/5 Ml Udc) 8.8 mg PO BID [facility] Stop: 11/07/23 08:59 Last Admin: 11/11/22 08:53 Dose: 8.8 mg Sodium Chloride (Sodium Chloride 0.9 % 10 Ml Syringe) 0 ml IV-PUSH QSHIFT [facility] Stop: 11/05/23 05:59 Last Admin: 11/11/22 06:17 [...] cultures remain negative. Respiratory PCR panel at [place] without targeted pathogen but parainfluenza 3 virus [...] stop. Documented By: Sanjay Holt MD 11/11/22 1088 Signed By: <Electronically signed by MD Sanjay Holt> 11/11/22 4612 [facility] Work Phone: 1([phone]) [phone] Progress note Author Rubi Ramos [facility] November 11, 2022 12:31am Note Date/Time November 10, 2022 6:42pm [facility] [address] [place], [place] [id number] Hospitalist Progress Note Signed Patient: Lori Anton MR#: [id number] : 1965 Acct:[id number] Age/Sex: 57 / M Adm Date: 3 Loc: Room: [address] [place] [address] Type: ADM IN Attending Dr: Rubi Ramos MD Copies to: ~ Date of Service: 11/10/2022 Subjective Subjective Narrative: Assessment And Plan 57M with PMH of HTN, DJD, Tobacco abuse, Depression who p/w ever, cough, and right-sided chest pain to the [facility] ED and Transferred for the evaluation and treatment of Bacterial pneumonia Bacterial pneumonia/Parainfluenza Infection Mild fever spike this morning UA was not suggestive for UTI, blood Cx obtained, leukocytosis Per chest CTA report done at [facility], there is evidence of 2.6 cm right [...] 1,000 Ml IV 11/07/23 09:59 75 mls/hr .[id number] SHANE Administration Midazolam HCl 100 mg in 100 mls @ 1 mls/hr 11/09/22 11:00 11/10/22 06:34 Versed IV 05/08/23 10:59 6 mg/hr .Q24H SHANE 6 mls/hr Titration Protocol 1 MG/HR Insulin Aspart 0 units 11/08/22 12:00 11/10/22 18:29 Insulin Aspart 300 Units/3 Ml Insuln.Pen SUBCUT 11/08/23 11:59 Not Given Q6HR [facility] Protocol Ketorolac Tromethamine 30 mg 11/06/22 12:52 [...] signed by Rubi Ramos MD> 11/11/22 0031 [facility] Work Phone: 1(753) 297-953105-04-2023 Progress note Author Ismael Huitron [facility] November 10, 2022 2:27pm Note Date/Time November 10, 2022 2:27pm [facility] [address] [place] [address] Pulmonology Progress Note Signed Patient: Lori Anton MR#: [id number] : 1965 Acct:[id number] Age/Sex: 57 / M Adm Date: 3 Loc: Room: [address] [place] [address] Type: ADM IN Attending Dr: Rubi Ramos [...] pneumothorax: Plan: Patient required placement of 32 [place] Citizen chest tube to keep up with his [...] continue suctioning to -20 from both 32 [place] Citizen chest tubes * CC time 35 minutes Documented By: Ismael Huitron MD 11/10/221421 Signed By: <Electronically signed by Ismael Huitron MD> 11/10/[address] [facility] Work Phone: 1(249) 734-935705-04-2023 Progress note Author Sanjay Holt [facility] November 10, 2022 9:42am Note Date/Time November 10, 2022 9:38am [facility] [address] [place] [address] Infect. Disease Progress Note Signed Patient: Lori Anton MR#: [id number] : 1965 Acct:[id number] Age/Sex: 57 / M Adm Date: 3 Loc: Room: [address] [place] [address] Type: ADM IN Attending Dr: Rubi Ramos [...] Puff/18 Gm Inhaler) 6 puff VENT Q6HR [facility] Stop: 11/07/23 11:59 Last Admin: 11/10/22 06:30 Dose: 6 puff Albuterol/Ipratropium (Ipratropium/Albuterol 0.5-3 Mg 3 Ml Ampul.Neb) 3 ml INHALATION QID.RESP [facility] Stop: 11/05/23 07:59 Last Admin: 11/07/22 09:05 Dose: Not Given Amlodipine Besylate (Amlodipine 10 Mg Tablet) 10 mg PO DAILY@0600 [facility] Stop: 11/05/23 08:59 Last Admin: 11/08/22 07:00 Dose: 10 mg Budesonide (Budesonide 0.5 Mg/2 Ml Ampul.Neb) 0.5 mg INHALATION BID [facility] Stop: 11/05/23 11:39 Last Admin: 11/06/22 20:43 Dose: 0.5 mg Buprenorphine HCl (Buprenorphine Hcl 2 Mg Tab.Subl) 2 mg SUBLINGUAL BID@0600,1800 [facility] Stop: 05/06/23 05:59 Last Admin: 11/07/22 06:38 Dose: 2 mg Carvedilol (Carvedilol 12.5 Mg Tablet) 12.5 mg PO BID@0600,1800 [facility] Stop: 11/06/23 20:59 Last Admin: 11/08/22 07:00 Dose: 12.5 mg Chlorhexidine Gluconate (Chlorhexidine Gluconate 0.12% 15 Ml Udc) 15 ml MUCOUS MEM BID [facility] Stop: 11/07/23 09:09 Last Admin: 11/10/22 08:57 Dose: 15 ml Docusate Sodium (Docusate Liquid 100 Mg/10 Ml Udc) 100 mg OG-TUBE BID [facility] Stop: 11/07/23 08:59 Last Admin: 11/10/22 08:57 Dose: 100 mg Enoxaparin Sodium (Enoxaparin 40 Mg/0.4 Ml Syringe) 40 mg SUBCUT DAILY@1000 [facility] Stop: 11/06/23 09:59 Last Admin: 11/10/22 09:00 Dose: 40 mg Fluoxetine HCl (Fluoxetine Soln 20 Mg/5 Ml) 40 mg PO HS [facility] Stop: 11/07/23 21:59 Last Admin: 11/09/22 21:43 Dose: 40 mg Fluoxetine HCl (Fluoxetine Soln 20 Mg/5 Ml) 20 mg PO DAILY@0600 [facility] Stop: 11/08/23 05:59 Last Admin: 11/10/22 05:48 Dose: 20 mg Guaifenesin (Guaifenesin 600 Mg Tab.Er.12h) 1,200 mg PO BID [facility] Stop: 11/06/23 12:54 Last Admin: 11/06/22 20:51 Dose: 1,200 mg Levofloxacin (Levaquin) 750 mg in 150 mls @ 100 mls/hr IV Q24H [facility] Last Admin: 11/09/22 21:22 Dose: 100 mls/hr Clindamycin Phosphate (Cleocin) 600 mg in 50 mls @ 100 mls/hr IV Q8H [facility] Last Admin: 11/10/22 09:00 Dose: 100 mls/hr Fentanyl (Fentanyl 1,000 Mcg/100 Ml D5w) 1,000 mcg in 100 mls @ 2.5 mls/hr IV .Q24H [facility]; Protocol Last Admin: 11/10/22 08:57 Dose: 200 mcg/hr, 20 mls/hr Propofol (Diprivan) 1,000 mg in 100 mls @ 12.6 mls/hr IV .Q7H57M [facility]; Protocol Stop: 11/07/23 07:59 Last Admin: 11/10/22 07:51 Dose: 50 mcg/kg/min, 31.5 mls/hr Sodium Chloride (0.9% Sodium Chloride 1,000 Ml) 1,000 mls @ 75 mls/hr IV .[id number] [facility] Stop: 11/07/23 09:59 Last Admin: 11/10/22 06:29 Dose: Not Given Midazolam HCl (Versed) 100 mg in 100 mls @ 1 mls/hr IV .Q24H [facility]; Protocol Stop: 05/08/23 10:59 Last Titration: 11/10/22 06:34 Dose: 6 mg/hr, 6 mls/hr Insulin Aspart (Insulin Aspart 300 Units/3 Ml Insuln.Pen) 0 units SUBCUT Q6HR [facility]; Protocol Stop: 11/08/23 11:59 Last Admin: 11/10/22 [...] 20 Mg Tablet) 20 mg PO DAILY@0600 [facility] Stop: 11/06/23 08:59 Last Admin: 11/08/22 07:00 Dose: 20 mg Magnesium Hydroxide (Magnesium Hydroxide Susp 30 Ml Udc) 30 ml PO DAILY PRN PRN Reason: Constipation Stop: 11/07/23 07:44 Methylprednisolone Sodium Succinate (Methylprednisolone Sod Succ/Pf 40 Mg/Ml (1ml) Vial) 40 mg IV-PUSH DAILY [facility] Stop: 11/10/23 08:59 Last Admin: 11/10/22 08:56 Dose: 40 mg Metoprolol Tartrate (Metoprolol Tartrate 5 Mg/5 Ml Vial) 5 mg IV-PUSH Q5M PRN PRN Reason: Tachyarrhythmias Last Admin: 11/07/22 05:25 Dose: 5 mg Nicotine (Nicotine Patch 21 Mg/24hr 1 Each Patch.Td24) 1 each TRANSDERML DAILY PRN PRN Reason: Nicotine Cravings Stop: 12/16/22 09:01 Pantoprazole Sodium (Pantoprazole 40 Mg Vial) 40 mg IV-PUSH DAILY [facility] Stop: 11/08/23 08:59 Last Admin: 11/10/22 08:57 [...] 10 Ml Vial.Pf) 10 ml INJECTION DAILY [facility] Stop: 11/08/23 08:59 Last Admin: 11/10/22 08:58 [...] cultures remain negative. Respiratory PCR panel at [place] without targeted pathogen but parainfluenza 3 virus [...] signed by MD Sanjay Holt> 11/10/[address] [facility] Work Phone: [phone] 411-575705-04-2023 Progress note Author Rubi Ramos [facility] November 10, 2022 1:16am Note Date/Time November 09, 2022 7:10pm [facility] [address] [place] [address] Hospitalist Progress Note Signed Patient: Lori Anton MR#: [id number] : 1965 Acct:[id number] Age/Sex: 57 / M Adm Date: 3 Loc: Room: [address] [place] [address] Type: ADM IN Attending Dr: Rubi Ramos MD Copies to: ~ Date of Service: 11/09/2022 Subjective Subjective Narrative: Assessment And Plan 57M with PMH of HTN, DJD, Tobacco abuse, Depression who p/w ever, cough, and right-sided chest pain to the [facility] ED and Transferred for the evaluation and treatment of Bacterial pneumonia/Parainfluenza Infection Afebrile, leukocytosis is resolving , Per chest CTA report done at [facility], there is evidence of 2.6 cm right [...] MUCOUS MEM 11/07/23 09:09 15 ml BID SHAEN Administration Docusate Sodium 100 mg 11/07/22 09:00 [...] 1,000 Ml IV 11/07/23 09:59 Not Given .[id number] [facility] Midazolam HCl 100 mg in 100 mls @ 1 mls/hr 11/09/22 11:00 11/09/22 17:35 Versed IV 05/08/23 10:59 5 mg/hr .Q24H [facility] 5 mls/hr Titration Protocol 1 MG/HR Insulin Aspart 0 units 11/08/22 12:00 11/09/22 18:31 Insulin Aspart 300 Units/3 Ml Insuln.Pen SUBCUT 11/08/23 11:59 Not Given Q6HR [facility] Protocol Ketorolac Tromethamine 30 mg 11/06/22 12:52 11/07/22 04:21 Ketorolac Tromethamine 30 Mg/Ml Vial IV-PUSH 11/11/22 12:51 30 mg Q6H PRN Administration Pain Scale 7 - 10 Lidocaine HCl 10 ml 11/09/22 13:55 Lidocaine 1% Pf 5 Ml Inj.Zara INFILTRATN ONCE PRN Pain Lisinopril 20 mg 11/07/22 06:00 11/08/22 07:00 Lisinopril 20 Mg Tablet PO 11/06/23 08:59 20 mg DAILY@0600 [facility] Administration Magnesium Hydroxide 30 ml 11/07/22 07:45 Magnesium Hydroxide Susp 30 Ml Udc PO 11/07/23 07:44 DAILY PRN Constipation Methylprednisolone Sodium Succinate 40 mg 11/10/22 09:00 Methylprednisolone Sod Succ/Pf 40 Mg/Ml (1ml) Vial IV-PUSH 11/10/23 08:59 DAILY [facility] Metoprolol Tartrate 5 mg 11/07/22 05:11 11/07/22 [...] signed by Rubi Ramos MD> 11/10/22 0116 [facility] Work Phone: 1(300) 974-618305-03-2023 Progress note Author Ismael Huitron [facility] November 09, 2022 3:14pm Note Date/Time November 09, 2022 1:23pm [facility] [address] [place] [address] Pulmonology Progress Note Signed Patient: Lori Anton MR#: [id number] : 1965 Acct:[id number] Age/Sex: 57 / M Adm Date: 3 Loc: Room: [address] [place] [address] Type: ADM IN Attending Dr: Rubi Ramos MD Copies to: ~ Date of Service: 11/09/2022 Subjective Subjective Narrative: Patient continued to improve after placement of second chest tube, his air leak has diminished markedly since, chest x-ray continued show complete reexpansion of the lung, I will remove his small pneumothorax catheter from the right midclavicular area and maintain the large 32 [place] chest tube in place with suctioning at [...] pneumothorax: Plan: Patient required placement of 32 [place] chest tube to keep up with his [...] <Electronically signed by Ismael Huitron MD> 11/09/[address] [facility] Work Phone: [phone] [facility] Progress note Author Sanjay Holt [facility] November 09, 2022 9:12am Note Date/Time November 09, 2022 9:08am [facility] [address] [place] [address] Infect. Disease Progress Note Signed Patient: Lori Anton MR#: [id number] : 1965 Acct:[id number] Age/Sex: 57 / M Adm Date: 3 Loc: Room: [address] [place] [address] Type: ADM IN Attending Dr: Rubi Ramos [...] Puff/18 Gm Inhaler) 6 puff VENT Q6HR [facility] Stop: 11/07/23 11:59 Last Admin: 11/09/22 06:31 Dose: 6 puff Albuterol/Ipratropium (Ipratropium/Albuterol 0.5-3 Mg 3 Ml Ampul.Neb) 3 ml INHALATION QID.RESP [facility] Stop: 11/05/23 07:59 Last Admin: 11/07/22 09:05 Dose: Not Given Amlodipine Besylate (Amlodipine 10 Mg Tablet) 10 mg PO DAILY@0600 [facility] Stop: 11/05/23 08:59 Last Admin: 11/08/22 07:00 Dose: 10 mg Budesonide (Budesonide 0.5 Mg/2 Ml Ampul.Neb) 0.5 mg INHALATION BID [facility] Stop: 11/05/23 11:39 Last Admin: 11/06/22 20:43 Dose: 0.5 mg Buprenorphine HCl (Buprenorphine Hcl 2 Mg Tab.Subl) 2 mg SUBLINGUAL BID@0600,1800 [facility] Stop: 05/06/23 05:59 Last Admin: 11/07/22 06:38 Dose: 2 mg Carvedilol (Carvedilol 12.5 Mg Tablet) 12.5 mg PO BID@0600,1800 [facility] Stop: 11/06/23 20:59 Last Admin: 11/08/22 07:00 Dose: 12.5 mg Chlorhexidine Gluconate (Chlorhexidine Gluconate 0.12% 15 Ml Udc) 15 ml MUCOUS MEM BID [facility] Stop: 11/07/23 09:09 Last Admin: 11/09/22 08:28 Dose: 15 ml Docusate Sodium (Docusate Liquid 100 Mg/10 Ml Udc) 100 mg OG-TUBE BID [facility] Stop: 11/07/23 08:59 Last Admin: 11/09/22 08:28 Dose: 100 mg Enoxaparin Sodium (Enoxaparin 40 Mg/0.4 Ml Syringe) 40 mg SUBCUT DAILY@1000 [facility] Stop: 11/06/23 09:59 Last Admin: 11/08/22 10:14 Dose: 40 mg Fluoxetine HCl (Fluoxetine Soln 20 Mg/5 Ml) 40 mg PO HS [facility] Stop: 11/07/23 21:59 Last Admin: 11/08/22 21:00 Dose: 40 mg Fluoxetine HCl (Fluoxetine Soln 20 Mg/5 Ml) 20 mg PO DAILY@0600 [facility] Stop: 11/08/23 05:59 Last Admin: 11/09/22 05:06 Dose: 20 mg Guaifenesin (Guaifenesin 600 Mg Tab.Er.12h) 1,200 mg PO BID [facility] Stop: 11/06/23 12:54 Last Admin: 11/06/22 20:51 Dose: 1,200 mg Levofloxacin (Levaquin) 750 mg in 150 mls @ 100 mls/hr IV Q24H [facility] Last Infusion: 11/08/22 23:10 Dose: Infused Clindamycin Phosphate (Cleocin) 600 mg in 50 mls @ 100 mls/hr IV Q8H [facility] Last Infusion: 11/09/22 02:31 Dose: Infused Fentanyl (Fentanyl 1,000 Mcg/100 Ml D5w) 1,000 mcg in 100 mls @ 2.5 mls/hr IV .Q24H [facility]; Protocol Last Admin: 11/08/22 21:01 Dose: 100 mcg/hr, 10 mls/hr Propofol (Diprivan) 1,000 mg in 100 mls @ 12.6 mls/hr IV .Q7H57M [facility]; Protocol Stop: 11/07/23 07:59 Last Titration: 11/09/22 05:39 Dose: 40 mcg/kg/min, 25.2 mls/hr Sodium Chloride (0.9% Sodium Chloride 1,000 Ml) 1,000 mls @ 75 mls/hr IV .[id number] [facility] Stop: 11/07/23 09:59 Last Admin: 11/09/22 06:07 Dose: 75 mls/hr Cisatracurium Besylate 200 mg/ (Dextrose) 200 mls @ 12.6 mls/hr IV .[id number] [facility]; Protocol Stop: 11/07/23 10:29 Last Titration: 11/09/22 00:34 Dose: 3 mcg/kg/min, 18.9 mls/hr Insulin Aspart (Insulin Aspart 300 Units/3 Ml Insuln.Pen) 0 units SUBCUT Q6HR [facility]; Protocol Stop: 11/08/23 11:59 Last Admin: 11/09/22 05:26 Dose: Not Given Ketorolac Tromethamine (Ketorolac Tromethamine 30 Mg/Ml Vial) 30 mg IV-PUSH Q6HPRN PRN Reason: Pain Scale 7 - 10 Stop: 11/11/22 12:51 Last Admin: 11/07/22 04:21 Dose: 30 mg Lisinopril (Lisinopril 20 Mg Tablet) 20 mg PO DAILY@0600 [facility] Stop: 11/06/23 08:59 Last Admin: 11/08/22 07:00 Dose: 20 mg Magnesium Hydroxide (Magnesium Hydroxide Susp 30 Ml Udc) 30 ml PO DAILY PRN PRN Reason: Constipation Stop: 11/07/23 07:44 Methylprednisolone Sodium Succinate (Methylprednisolone Sod Succ/Pf 40 Mg/Ml (1ml) Vial) 40 mg IV-PUSH Q8HR [facility] Stop: 11/05/23 13:59 Last Admin: 11/09/22 05:06 Dose: 40 mg Metoprolol Tartrate (Metoprolol Tartrate 5 Mg/5 Ml Vial) 5 mg IV-PUSH Q5M PRN PRN Reason: Tachyarrhythmias Last Admin: 11/07/22 05:25 Dose: 5 mg Nicotine (Nicotine Patch 21 Mg/24hr 1 Each Patch.Td24) 1 each TRANSDERML DAILY PRN PRN Reason: Nicotine Cravings Stop: 12/16/22 09:01 Pantoprazole Sodium (Pantoprazole 40 Mg Vial) 40 mg IV-PUSH DAILY [facility] Stop: 11/08/23 08:59 Last Admin: 11/09/22 08:28 Dose: 40 mg Potassium Chloride (Potassium Chloride Er 20 Meq Tab.Er.Prt) 40 meq PO DAILY PRN PRN Reason: Hypokalemia Stop: 11/05/23 06:40 Last Admin: 11/05/22 08:43 Dose: 40 meq Sennosides (Sennosides Syrup 8.8 Mg/5 Ml Udc) 8.8 mg PO BID [facility] Stop: 11/07/23 08:59 Last Admin: 11/09/22 08:28 Dose: 8.8 mg Sodium Chloride (Sodium Chloride 0.9 % 10 Ml Syringe) 0 ml IV-PUSH QSHIFT [facility] Stop: 11/05/23 05:59 Last Admin: 11/09/22 05:07 [...] cultures remain negative. Respiratory PCR panel at [place] without targeted pathogen but parainfluenza 3 virus targeted here. Legionella urine antigen negative, Legionella antibodies negative. Urinestrep antigen negative. HIV negative. Continues on Levaquin and Flagyl. Day 5of antibiotics Documented By: Sanjay Holt MD 11/09/22905 Signed By: <Electronically signed by MD Sanjay Holt> 11/09/22911 [facility] Work Phone: [phone] Progress note Author Rubi Ramos [facility] November 09, 2022 1:09am Note Date/Time November 08, 2022 7:20pm [facility] [address] [place] [address] Hospitalist Progress Note Signed Patient: Lori Anton MR#: [id number] : 1965 Acct:[id number] Age/Sex: 57 / M Adm Date: 3 Loc: Room: [address] [place] [address] Type: ADM IN Attending Dr: Rubi Ramos [...] 1,000 Ml IV 11/07/23 09:59 Not Given .[id number] [facility] Cisatracurium Besylate 200 mg/ 200 mls @ 12.6 mls/hr 11/07/22 10:30 11/08/22 17:38 Dextrose IV 11/07/23 10:29 3 mcg/kg/min .[id number] [facility] 18.9 mls/hr Titration Protocol 2 MCG/KG/MIN Norepinephrine Bitartrate 8 mg in 250 mls @ 3.75 mls/hr 11/07/22 17:15 11/08/22 17:39 Levophed IV 11/07/23 17:14 Not Given .Q24H [facility] Protocol 2 MCG/MIN Insulin Aspart 0 units 11/08/22 12:00 11/08/22 17:45 Insulin Aspart 300 Units/3 Ml Insuln.Pen SUBCUT 11/08/23 11:59 Not Given Q6HR [facility] Protocol Ketorolac Tromethamine 30 mg 11/06/22 12:52 [...] signed by Rubi Ramos MD> 11/09/[address] [facility] Work Phone: [phone] 186-643705-02-2023 Progress note Author Ismael Huitron [facility] November 08, 2022 3:23pm Note Date/Time November 08, 2022 3:23pm [facility] [address] [place] [address] Pulmonology Progress Note Signed Patient: Lori Anton MR#: [id number] : 1965 Acct:[id number] Age/Sex: 57 / M Adm Date: 3 Loc: Room: [address] [place] [address] Type: ADM IN Attending Dr: Rubi Ramos MD Copies to: ~ Date of Service: 11/08/2022 Subjective Subjective Narrative: Patient has stabilized from the respiratory standpoint overnight but had worsening air leak from his chest tube now continuous air leak is noted this morning, chest x-ray showed worsening right pneumothorax, immediately after seeing that I placed a 32 [place] chest tube in addition to the small pneumothorax catheter in place, he had continuous air leak from both, and chest x-ray showed complete reexpansion of the lung after the second chest tube placement. This was accompanied by improving oxygenation he is down to 40% [id number]. I started weaning PEEP down as well [...] pneumothorax: Plan: Patient required placement of 32 [place] chest tube to keep up with his [...] <Electronically signed by Ismael Huitron MD> 11/08/[address] [facility] Work Phone: [phone] [facility] Progress note Author Sanjay Holt [facility] November 08, 2022 8:52am Note Date/Time November 08, 2022 8:47am [facility] [address] [place] [address] Infect. Disease Progress Note Signed Patient: Lori Anton MR#: [id number] : 1965 Acct:[id number] Age/Sex: 57 / M Adm Date: 3 Loc: Room: [address] [place] [address] Type: ADM IN Attending Dr: Rubi Ramos [...] ml @ 2 MCG/KG/MIN 12.6 mls/hr IV .[id number] [facility] Rx#:[id number] Clindamycin 600 mg/50 ml-*D5w* 50 / 150 50 / 50 600 mg In 50 ml @ 100 mls/hr IV Q8H [facility] Rx#:[id number] Sodium Chloride 0.9% 1,000 ml 1 1000 / 1000 ,000 ml @ 75 mls/hr IV .[id number] [facility] Rx#:[id number] fentaNYL 1,000 mcg-*D5W* 1,000 100 / 200 mcg In 100 ml @ 25 MCG/HR 2.5 mls/hr IV .Q24H [facility] Rx#: [id number] levoFLOXacin 750MG-*D5W* 750 mg 150 / 150 In 150 ml @ 100 mls/hr IV Q24H [facility] Rx#:[id number] propofoL 1,000 mg In 100 ml @ 200 / 400 100 / 100 20 MCG/KG/MIN 12.6 mls/hr IV . Q7H57M [facility] Rx#:[id number] Tube Feeding 0 / 0 Tube Irrigant [...] Puff/18 Gm Inhaler) 6 puff VENT Q6HR [facility] Stop: 11/07/23 11:59 Last Admin: 11/08/22 05:35 Dose: 6 puff Albuterol/Ipratropium (Ipratropium/Albuterol 0.5-3 Mg 3 Ml Ampul.Neb) 3 ml INHALATION QID.RESP [facility] Stop: 11/05/23 07:59 Last Admin: 11/07/22 09:05 Dose: Not Given Amlodipine Besylate (Amlodipine 10 Mg Tablet) 10 mg PO DAILY@0600 [facility] Stop: 11/05/23 08:59 Last Admin: 11/08/22 07:00 Dose: 10 mg Budesonide (Budesonide 0.5 Mg/2 Ml Ampul.Neb) 0.5 mg INHALATION BID [facility] Stop: 11/05/23 11:39 Last Admin: 11/06/22 20:43 Dose: 0.5 mg Buprenorphine HCl (Buprenorphine Hcl 2 Mg Tab.Subl) 2 mg SUBLINGUAL BID@0600,1800 [facility] Stop: 05/06/23 05:59 Last Admin: 11/07/22 06:38 Dose: 2 mg Carvedilol (Carvedilol 12.5 Mg Tablet) 12.5 mg PO BID@0600,1800 [facility] Stop: 11/06/23 20:59 Last Admin: 11/08/22 07:00 Dose: 12.5 mg Chlorhexidine Gluconate (Chlorhexidine Gluconate 0.12% 15 Ml Udc) 15 ml MUCOUS MEM BID [facility] Stop: 11/07/23 09:09 Last Admin: 11/07/22 21:56 Dose: 15 ml Docusate Sodium (Docusate Liquid 100 Mg/10 Ml Udc) 100 mg OG-TUBE BID [facility] Stop: 11/07/23 08:59 Last Admin: 11/07/22 21:56 Dose: 100 mg Enoxaparin Sodium (Enoxaparin 40 Mg/0.4 Ml Syringe) 40 mg SUBCUT DAILY@1000 [facility] Stop: 11/06/23 09:59 Last Admin: 11/07/22 10:37 Dose: 40 mg Fluoxetine HCl (Fluoxetine Soln 20 Mg/5 Ml) 40 mg PO HS [facility] Stop: 11/07/23 21:59 Last Admin: 11/07/22 21:57 Dose: 40 mg Fluoxetine HCl (Fluoxetine Soln 20 Mg/5 Ml) 20 mg PO DAILY@0600 [facility] Stop: 11/08/23 05:59 Last Admin: 11/08/22 07:00 Dose: 20 mg Guaifenesin (Guaifenesin 600 Mg Tab.Er.12h) 1,200 mg PO BID [facility] Stop: 11/06/23 12:54 Last Admin: 11/06/22 20:51 Dose: 1,200 mg Levofloxacin (Levaquin) 750 mg in 150 mls @ 100 mls/hr IV Q24H [facility] Last Infusion: 11/07/22 23:33 Dose: Infused Clindamycin Phosphate (Cleocin) 600 mg in 50 mls @ 100 mls/hr IV Q8H [facility] Last Infusion: 11/08/22 06:00 Dose: Infused Fentanyl (Fentanyl 1,000 Mcg/100 Ml D5w) 1,000 mcg in 100 mls @ 2.5 mls/hr IV .Q24H [facility]; Protocol Last Admin: 11/08/22 02:00 Dose: 100 mcg/hr, 10 mls/hr Propofol (Diprivan) 1,000 mg in 100 mls @ 12.6 mls/hr IV .Q7H57M [facility]; Protocol Stop: 11/07/23 07:59 Last Admin: 11/08/22 04:01 Dose: 35 mcg/kg/min, 22.05 mls/hr Sodium Chloride (0.9% Sodium Chloride 1,000 Ml) 1,000 mls @ 75 mls/hr IV .[id number] [facility] Stop: 11/07/23 09:59 Last Admin: 11/07/22 23:32 Dose: 75 mls/hr Cisatracurium Besylate 200 mg/ (Dextrose) 200 mls @ 12.6 mls/hr IV .[id number] [facility]; Protocol Stop: 11/07/23 10:29 Last Admin: 11/08/22 06:29 Dose: 2 mcg/kg/min, 12.6 mls/hr Norepinephrine Bitartrate (Levophed) 8 mg in 250 mls @ 3.75 mls/hr IV .Q24H [facility]; Protocol Stop: 11/07/23 17:14 Last Admin: 11/08/22 07:54 Dose: Not Given Ketorolac Tromethamine (Ketorolac Tromethamine 30 Mg/Ml Vial) 30 mg IV-PUSH Q6HPRN PRN Reason: Pain Scale 7 - 10 Stop: 11/11/22 12:51 Last Admin: 11/07/22 04:21 Dose: 30 mg Lisinopril (Lisinopril 20 Mg Tablet) 20 mg PO DAILY@0600 [facility] Stop: 11/06/23 08:59 Last Admin: 11/08/22 07:00 Dose: 20 mg Magnesium Hydroxide (Magnesium Hydroxide Susp 30 Ml Udc) 30 ml PO DAILY PRN PRN Reason: Constipation Stop: 11/07/23 07:44 Methylprednisolone Sodium Succinate (Methylprednisolone Sod Succ/Pf 40 Mg/Ml (1ml) Vial) 40 mg IV-PUSH Q8HR [facility] Stop: 11/05/23 13:59 Last Admin: 11/08/22 07:00 Dose: 40 mg Metoprolol Tartrate (Metoprolol Tartrate 5 Mg/5 Ml Vial) 5 mg IV-PUSH Q5M PRN PRN Reason: Tachyarrhythmias Last Admin: 11/07/22 05:25 Dose: 5 mg Nicotine (Nicotine Patch 21 Mg/24hr 1 Each Patch.Td24) 1 each TRANSDERML DAILY PRN PRN Reason: Nicotine Cravings Stop: 12/16/22 09:01 Pantoprazole Sodium (Pantoprazole 40 Mg Vial) 40 mg IV-PUSH DAILY [facility] Stop: 11/08/23 08:59 Potassium Chloride (Potassium Chloride Er 20 Meq Tab.Er.Prt) 40 meq PO DAILY PRN PRN Reason: Hypokalemia Stop: 11/05/23 06:40 Last Admin: 11/05/22 08:43 Dose: 40 meq Sennosides (Sennosides Syrup 8.8 Mg/5 Ml Udc) 8.8 mg PO BID [facility] Stop: 11/07/23 08:59 Last Admin: 11/07/22 21:56 Dose: 8.8 mg Sodium Chloride (Sodium Chloride 0.9 % 10 Ml Syringe) 0 ml IV-PUSH QSHIFT [facility] Stop: 11/05/23 05:59 Last Admin: 11/08/22 07:00 Dose: 40 ml Sodium Chloride (Sodium Chloride 0.9 % 10 Ml Syringe) 10 ml IV-PUSH PRN PRN PRN Reason: Flush Stop: 11/07/23 08:37 Sodium Chloride (Sodium Chloride 0.9 % 10 Ml Vial.Pf) 10 ml INJECTION DAILY [facility] Stop: 11/08/23 08:59 Tizanidine HCl (Tizanidine 4 [...] signed by MD Sanjay Holt> 11/08/[address] [facility] Work Phone: [phone] 127-833805-02-2023 Progress note Author Rubi Ramos [facility] November 08, 2022 1:26am Note Date/Time November 07, 2022 4:20pm [facility] [address] [place] [address] Hospitalist Progress Note Signed Patient: Lori Anton MR#: [id number] : 1965 Acct:[id number] Age/Sex: 57 / M Adm Date: 3 Loc: Room: [address] [place] [address] Type: ADM IN Attending Dr: Rubi Ramos [...] Tab.Subl SUBLINGUAL 05/06/23 05:59 2 mg BID@0600,1800 [facility] Administration Carvedilol 12.5 mg 11/06/22 21:00 11/07/22 06:37 Carvedilol 12.5 Mg Tablet PO 11/06/23 20:59 12.5 mg BID@0600,1800 [facility] Administration Chlorhexidine Gluconate 15 ml 11/07/22 09:10 11/07/22 10:41 Chlorhexidine Gluconate 0.12% 15 Ml Udc MUCOUS MEM 11/07/23 09:09 15 ml BID [facility] Administration Docusate Sodium 100 mg 11/07/22 09:00 11/07/22 09:37 Docusate Liquid 100 Mg/10 Ml Udc OG-TUBE 11/07/23 08:59 Not Given BID [facility] Enoxaparin Sodium 40 mg 11/06/22 10:00 11/07/22 10:37 Enoxaparin 40 Mg/0.4 Ml Syringe SUBCUT 11/06/23 09:59 40 mg DAILY@1000 [facility] Administration Fluoxetine HCl 40 mg 11/07/22 22:00 Fluoxetine Soln 20 Mg/5 Ml PO 11/07/23 21:59 HS [facility] Fluoxetine HCl 20 mg 11/08/22 06:00 Fluoxetine Soln 20 Mg/5 Ml PO 11/08/23 05:59 DAILY@0600 [facility] Guaifenesin 1,200 mg 11/06/22 12:55 11/06/22 20:51 [...] 1,000 Ml IV 11/07/23 09:59 75 mls/hr .[id number] SHANE Administration Cisatracurium Besylate 200 mg/ 200 mls @ 12.6 mls/hr 11/07/22 10:30 11/07/22 10:57 Dextrose IV 11/07/23 10:29 1.5 mcg/kg/min .[id number] SHANE 9.45 mls/hr Administration Protocol 2 MCG/KG/MIN [...] signed by Rubi Ramos MD> 11/08/22 0126 [facility] Work Phone: 1(280) 873-870705-01-2023 Progress note Author Ismael Huitron [facility] November 07, 2022 2:05pm Note Date/Time November 07, 2022 1:56pm [facility] [address] [place] [address] Pulmonology Progress Note Signed Patient: Lori Anton MR#: [id number] : 1965 Acct:[id number] Age/Sex: 57 / M Adm Date: 3 Loc: Room: [address] [place] [address] Type: ADM IN Attending Dr: Rubi Ramos MD Copies to: ~ Date of Service: 11/07/2022 Subjective Subjective Narrative: Patient developed progressive respiratory distress overnight associated with right-sided pleuritic pain, due to severe hypoxia and work of breathing, patientwas intubated by nurse dental laboratory worker this morning, immediately following that and with [...] [facility] patient expanded well once intubated, [...] signed by Ismael Huitron MD> 11/07/[address] [facility] Work Phone: 1(755) 255-441205-01-2023 [facility] Procedure [facility]05-01-2023 History general Narrative - Reported* Type Description Date Medical History htn Medical History arthritis Medical History anxiety Hospital[place] History [facility] [place] [facility] Other 05-01-2023 Consult note Author Sanjay Holt [facility] November 07, 2022 9:23am Note Date/Time November 07, 2022 9:11am [facility] [address] [place] [address] Infect. Disease Consult Note Signed Patient: Lori Anton MR#: [id number] : 1965 Acct:[id number] Age/Sex: 57 / M Adm Date: 3 Loc: Room: [address] [place] [address] Type: ADM IN Attending Dr: Netta Wiseman MD Copies to: Shaista Corona, PAYROLL SPECIALIST-C MD Netta Montez MD~ HPI Data of Consult Consult date: 11/07/22 Requesting Physician: Netta Wiseman MD Primary Care Provider: Shaista Corona Consult Narrative History of present illness: Mr. Anton is a 57 year old male who is currently intubated and sedated on the ventilator. He had been at [facility] prior to coming to [facility] and was centerspecifically to have a bronchoscopy performed. He has pneumonia that PCR panel from [place] did not yield any targets but respiratory [...] 3 Ml Ampul.Neb) 3 ml INHALATION QID.RESP [facility] Stop: 11/05/23 07:59 Last Admin: 11/06/22 20:43 Dose: 3 ml Amlodipine Besylate (Amlodipine 10 Mg Tablet) 10 mg PO DAILY@0600 [facility] Stop: 11/05/23 08:59 Last Admin: 11/07/22 06:36 Dose: 10 mg Budesonide (Budesonide 0.5 Mg/2 Ml Ampul.Neb) 0.5 mg INHALATION BID [facility] Stop: 11/05/23 11:39 Last Admin: 11/06/22 20:43 Dose: 0.5 mg Buprenorphine HCl (Buprenorphine Hcl 2 Mg Tab.Subl) 2 mg SUBLINGUAL BID@0600,1800 [facility] Stop: 05/06/23 05:59 Last Admin: 11/07/22 06:38 Dose: 2 mg Carvedilol (Carvedilol 12.5 Mg Tablet) 12.5 mg PO BID@0600,1800 [facility] Stop: 11/06/23 20:59 Last Admin: 11/07/22 06:37 Dose: 12.5 mg Docusate Sodium (Docusate Liquid 100 Mg/10 Ml Udc) 100 mg OG-TUBE BID [facility] Stop: 11/07/23 08:59 Enoxaparin Sodium (Enoxaparin 40 Mg/0.4 Ml Syringe) 40 mg SUBCUT DAILY@1000 [facility] Stop: 11/06/23 09:59 Last Admin: 11/06/22 09:09 Dose: 40 mg Fluoxetine HCl (Fluoxetine Soln 20 Mg/5 Ml) 40 mg PO HS [facility] Stop: 11/07/23 21:59 Fluoxetine HCl (Fluoxetine Soln 20 Mg/5 Ml) 20 mg PO DAILY@0600 [facility] Stop: 11/08/23 05:59 Guaifenesin (Guaifenesin 600 Mg Tab.Er.12h) 1,200 mg PO BID [facility] Stop: 11/06/23 12:54 Last Admin: 11/06/22 20:51 Dose: 1,200 mg Levofloxacin (Levaquin) 750 mg in 150 mls @ 100 mls/hr IV Q24H [facility] Last Admin: 11/06/22 21:00 Dose: 100 mls/hr Clindamycin Phosphate (Cleocin) 600 mg in 50 mls @ 100 mls/hr IV Q8H [facility] Last Admin: 11/07/22 02:14 Dose: 100 mls/hr Fentanyl (Fentanyl 1,000 Mcg/100 Ml D5w) 1,000 mcg in 100 mls @ 2.5 mls/hr IV .Q24H [facility]; Protocol Propofol (Diprivan) 1,000 mg in 100 mls @ 12.6 mls/hr IV .Q7H57M [facility]; Protocol Stop: 11/07/23 07:59 Ketorolac Tromethamine (Ketorolac Tromethamine 30 Mg/Ml Vial) 30 mg IV-PUSH Q6HPRN PRN Reason: Pain Scale 7 - 10 Stop: 11/11/22 12:51 Last Admin: 11/07/22 04:21 Dose: 30 mg Lisinopril (Lisinopril 20 Mg Tablet) 20 mg PO DAILY@0600 [facility] Stop: 11/06/23 08:59 Last Admin: 11/07/22 06:37 Dose: 20 mg Magnesium Hydroxide (Magnesium Hydroxide Susp 30 Ml Udc) 30 ml PO DAILY PRN PRN Reason: Constipation Stop: 11/07/23 07:44 Methylprednisolone Sodium Succinate (Methylprednisolone Sod Succ/Pf 40 Mg/Ml (1ml) Vial) 40 mg IV-PUSH Q8HR [facility] Stop: 11/05/23 13:59 Last Admin: 11/07/22 06:39 Dose: 40 mg Metoprolol Tartrate (Metoprolol Tartrate 5 Mg/5 Ml Vial) 5 mg IV-PUSH Q5M PRN PRN Reason: Tachyarrhythmias Last Admin: 11/07/22 05:25 Dose: 5 mg Nicotine (Nicotine Patch 21 Mg/24hr 1 Each Patch.Td24) 1 each TRANSDERML DAILY PRN PRN Reason: Nicotine Cravings Stop: 12/16/22 09:01 Pantoprazole Sodium (Pantoprazole 40 Mg Vial) 40 mg IV-PUSH DAILY [facility] Stop: 11/08/23 08:59 Potassium Chloride (Potassium Chloride [...] 50 ml @ 100 mls/hr IV Q8H [facility] Rx#:[id number] Oral 680 / 1480 500 / 500 [...] cultures remain negative. Respiratory PCR panel at [facility] without targeted pathogen but parainfluenza 3 virus targeted here. Will check antibodies to Legionella and urine antigen for Legionella and Streptococcus. Documented By: Sanjay Holt MD 11/07/22902 Signed By: <Electronically signed by MD Sanjay Holt> 11/07/22922 [facility] Work Phone: [phone] 795-867905-01-2023 [facility] Progress note Author Kaylee Mclaughlin [facility] November 06, 2022 4:09pm Note Date/Time November 06, 2022 4:1 0pm [facility] [address] [place] [address] Pulmonology Progress Note Signed Patient: Lori Anton MR#: [id number] : 1965 Acct:[id number] Age/Sex: 57 / M Adm Date: 3 Loc: Room: [address] [place] [address] Type: ADM IN Attending Dr: Netta Wiseman [...] No deformity. -Skin: No rash. Slightly diaphoretic. -ADULT CAREGIVER: Alert and oriented x3, no focal deficits. [...] as the CT angiogram was done at [facility] and no disc was sent with records. We did call [facility] and requested chest CTA imaging. -Chest CT [...] Plan: -Per chest CTA report done at [facility], there is evidence of 2.6 cm right hilar lymph node compressing the right lower lobe bronchus leading to right lower lobe atelectasis . - Again, the CTA film is not available for my review at this time, this was requested from [facility]. However this is concerning for primary lung [...] undiagnosed COPD Plan -Patient was sent from [facility] to [facility] after hewas told he needed bronchoscopy. [...] Critical care time 37 minutes Documented By: aKylee Mclaughlin MD 11/06/22 160 1 Signed By: <Electronically signed by Kaylee Mclaughlin MD> 11/06/[address] [facility] Work Phone: 1(149) 120-382904-30-2023 Progress note Author Netta Wiseman [facility] November 06, 2022 8:49am Note Date/Time November 06, 2022 8:4 9am [facility] [address] [place] [address] Hospitalist Progress Note Signed Patient: Lori Anton MR#: [id number] : 1965 Acct:[id number] Age/Sex: 57 / M Adm Date: 3 Loc: 4P Room: [address] [place] [address] Type: ADM IN Attending Dr: Netta Wiseman [...] signed by Netta Wiseman MD> 11/06/[address] [facility] Work Phone: [phone]) [phone] Consult note Author Kaylee Mclaughlin [facility] November 05, 2022 12:45pm Note Date/Time November 05, 2022 12: 05pm [facility] [address] [place] [address] Pulmonology Consult Note Signed Patient: Lori Anton MR#: [id number] : 1965 Acct:[id number] Age/Sex: 57 / M Adm Date: 3 Loc: Room: [address] [place] [address] Type: ADM IN Attending Dr: Netta Wiseman MD Copies to: Shaista Corona, PAYROLL SPECIALIST-C MD Netta Pillai MD~ HPI Date/Time of Consultation: Date of Service: 11/05/2022 Time of Service: 11:45 Consulting Provider: Kaylee Mclaughlin Requesting Provider: Netta Wiseman Reason for Consult: Acute hypoxemic respiratory failure, right lower lobe atelectasis History of Present Illness History of present illness: Mr. Anton is a 57 year old male with more than 98-vdwg-[id number] smoking history whosmokes a pack a day, history of hypertension and arthritis was transferred from [facility] last night for acute hypoxic respiratory failure [...] the visit to the emergency room at [facility] however due to no pulmonary programmer operator numerical control [facility]. [facility] tells me he smokes a [...] No recent travel. Chest CT angiogram at [facility] reported negative for PE, showed multifocal groundglass [...] No deformity. Skin: No rash. Slightly diaphoretic. ADULT CAREGIVER: Alert and oriented x3, no focal deficits. [...] as the CT angiogram was done at [facility] and no disc was sent with records. We did call [facility] and requested chest CTA imaging. -Start high flow nasal cannula with flow rate 40 L/min and FiO2 60% -Titrate FiO2 as needed for target SPO2> 90% -Potential underlying chronic obstructive of pulmonary disease, treat with nebulized short acting bronchodilators, budesonide, and systemic corticosteroids (2) Hilar lymphadenopathy: Plan: -Per chest CTA report done at [facility], there is evidence of 2.6 cm right hilar lymph node compressing the right lower lobe bronchus leading to right lower lobe atelectasis . - Again, the CTA film is not available for my review at this time, this was requested from [facility]. However this is concerning for primary lung [...] signed by Kaylee Mclaughlin MD> 11/05/[address] [facility] Work Phone: 1(352) 347-337004-29-2023 Progress note Author Netta Wiseman [facility] November 05, 2022 9:09am Note Date/Time November 05, 2022 9:0 9am [facility] [address] [place] [address] Event Note Signed Patient: Lori Anton MR#: [id number] : 1965 Acct:[id number] Age/Sex: 57 / M Adm Date: 3 Loc: 3T Room: [address] [place] [address] Type: ADM IN Attending Dr: Netta Wiseman MD Copies to: Shaista Corona, PAYROLL SPECIALIST-C Netta Wiseman MD~ Event Date & Type [...] Suspect obstructive pneumonia. CT scan done at [facility] did not show any pulmonary embolism. Patient [...] signed by Netta Wiseman MD> 11/05/[address] [facility] Work Phone: 1([phone]) 402-807904-29-2023 History and physical note Author Derek Alex [facility] November 05, 2022 6:38am Note Date/Time November 05, 2022 4:0 0am [facility] [address] [place] [address] Hospitalist H&P Signed with Addenda Patient: Lori Anton MR#: [id number] : 1965 Acct:[id number] Age/Sex: 57 / M Adm Date: 3 Loc: Room: [address] [place] [address] Type: ADM IN Attending Dr: Derek Alex MD Copies to: MD Shaista Bustamante, PAYROLL SPECIALIST-C Annabel Boo, MARLO~ ADDENDUM1 I personally saw this patient on the day of the encounter, reviewed the history,performed the borrego elements of the exam and formulated the plan of care and confirmed the nurse practitioners/residents/application development intern written note. Addendum Documented By: Derek Alex MD 11/05/22 0637 Addendum Signed By: <Electronically signed by Derek Alex MD> 11/05/22 0637 HPI DATE OF EXAMINATION: 11/05/22 CHIEF COMPLAINT: fever, cough, right sided chest pain HISTORY OF PRESENT ILLNESS: Mr. Anton is a 57-year-old male with a PMH of HTN, arthritis that presented to the [facility] emergency room for fever, cough, and right- sided chest pain. Patient seen and evaluated upon transfer at bedside, at bedside. [facility] hospital work-up with a positive D-dimer 0.96, [...] the day decided to go to the [facility] emergency room and then hewas transferred here. [...] unless noted in the HPI or below. [facility] Attestation Statement: The following information was [...] diet Documented By: Annabel Boo APRN 11/05/22 1633 Signed By: <Electronically signed by MARLO Boo> 11/05/22 8643 <Electronically signed by Derek Alex MD> 11/05/[address] [facility] Work Phone: 1([phone]) 341-806412-29-2022 Evaluation note* Encounter Date Diagnosis Assessment Notes [...] care provider if no improvement of symptoms. [facility] Other Evaluation note* Diagnosis Onset Date Resolution Status Acute hypoxemic respiratory failure acute Atelectasis acute Community acquired pneumonia acute Fever acute Hilar lymphadenopathy acute HTN (hypertension) acute Nicotine dependence acute Parainfluenza acute Tension pneumothorax acute [facility] [employer] Work Phone: Evaluation noteNo assessment information available [facility] Work Phone: History general Narrative - Reported* Type Description Date Medical History htn Medical History arthritis Medical History anxiety [facility] Other Hospital Discharge instructionsAmbulatory Orders* Initiate Home [...] can remove right chest sutures [facility] Work Phone: Hospital Discharge instructions Additional Instructions Avoid smoking Push fluids Rest Follow with your PCP Return here if any problems persist or worsen include chest pain, shortness of breath or any other concernSt[facility] Work Phone: Summary Purpose Family History [...] section and content) DATE CREATED AUTHOR 12/19/2018 [facility] DATE CREATED AUTHOR AUTHOR'S ORGANIZ ATION 11/11/2022 [facility] DATE CREATED AUTHOR AUTHOR'S ORGANIZ ATION 05/24/2023 [facility] DATE CREATED AUTHOR AUTHOR'S ORGANIZ ATION 09/06/2023 [facility] DATE CREATED AUTHOR AUTHOR'S ORGANIZ ATION 10/04/2023 [facility] REASON FOR VISIT (unrecogniz ed section and [...] Primary Care Provider Active Evi Gay APRN [facility]- Attending Provider Active Team Status: Inactive [...] BE BASED ON THE PRIMARY CLINICAL RECORDS. [facility] [place] [facility]. provides no warranty or guarantee of the accuracy or completeness of information in this document.
--- NOTE | 2023-10-30 07:35 | US_ITS ---
[place] [id number] Patient Name: LORI GOMEZ MRN: [id number] date: 1965 Sex: M Assigned Patient Location: RAD Current Patient Location: [facility] Accession/Order Number: [id number] Exam Date: 10/30/2023 07:40 Report Date: 10/30/2023 09:29 At the request of: CHRISTINA STEVENS Procedure: US venous doppler LE LT EXAM: US venous doppler LE LT HISTORY: Deep Vein Thrombosis COMPARISON: None. TECHNIQUE: Grayscale, color and Doppler FINDINGS: Region: Left leg Thrombus: None Flow: Normal Augmentation: Normal Compressibility: Normal US/US venous doppler LE LT IMPRESSION: No deep or superficial vein thrombus identified in the left leg Electronically authenticated by: LORI ROJAS Date: 10/30/2023 09:29
== END 2023-10-30 07:29 | disposition home or self-care (01) ==
LOC: RAD 07:29
PROVIDERS: PCP Nurse Practitioner; Visit Provider Internal Medicine
DX: I82.402 Acute embolism and thrombosis of unspecified deep veins of left lower extremity (principal)
CPT/HCPCS: 93971

== ENCOUNTER 2023-10-31 12:28 | Outpatient (OUT) | payer BC, SELFPAY ==
--- NOTE | 2023-10-31 12:32 | XR_ITS ---
[address] [address] Patient Name: LORI GOMEZ MRN: [id number] date: 1965 Sex: M Assigned Patient Location: RAD Current Patient Location: RAD Accession/Order Number: [id number] Exam Date: 10/31/2023 12:45 Report Date: 10/31/2023 13:23 At the request of: GEOFFREY DOMÍNGUEZ Procedure: XR knee LT 4V PROCEDURE: XR knee LT 4V, XR tibia fibula LT 2V COMPARISON: None. HISTORY: left lower leg pain, radicular symptoms lumbar spine FINDINGS: BONES:No acute fracture or dislocation. Moderate to severe tricompartmental osteoarthropathy of the knee with narrowing of the medial joint space and marginal osteophyte formation. Heterotopic ossification along the proximal fibular head. Moderate plantar enthesopathic spurring of the calcaneus. Asymmetry of the tibiotalar joint widening laterally SOFT TISSUES:Negative. No visible soft tissue swelling. EFFUSION:None visible. OTHER: Negative. XR/XR knee LT 4V IMPRESSION: Osteoarthritis of the knee and ankle No acute fracture Electronically authenticated by: LORI ROJAS Date: 10/31/2023 13:23
--- NOTE | 2023-10-31 12:34 | XR_ITS ---
[address] [address] Patient Name: LORI GOMEZ MRN: [id number] date: 1965 Sex: M Assigned Patient Location: [facility] Current Patient Location: [facility] Accession/Order Number: [id number] Exam Date: 10/31/2023 12:45 Report Date: 10/31/2023 13:23 At the request of: GEOFFREY DOMÍNGUEZ Procedure: XR tibia fibula LT 2V PROCEDURE: XR knee LT 4V, XR tibia fibula LT 2V COMPARISON: None. HISTORY: left lower leg pain, radicular symptoms lumbar spine FINDINGS: BONES:No acute fracture or dislocation. Moderate to severe tricompartmental osteoarthropathy of the knee with narrowing of the medial joint space and marginal osteophyte formation. Heterotopic ossification along the proximal fibular head. Moderate plantar enthesopathic spurring of the calcaneus. Asymmetry of the tibiotalar joint widening laterally SOFT TISSUES:Negative. No visible soft tissue swelling. EFFUSION:None visible. OTHER: Negative. XR/XR tibia fibula LT 2V IMPRESSION: Osteoarthritis of the knee and ankle No acute fracture Electronically authenticated by: LORI ROJAS Date: 10/31/2023 13:23
--- NOTE | 2023-10-31 12:34 | XR_ITS ---
The [address] [address] Patient Name: LORI GOMEZ MRN: [id number] date: 1965 Sex: M Assigned Patient Location: RAD Current Patient Location: [facility] Accession/Order Number: [id number] Exam Date: 10/31/2023 12:45 Report Date: 10/31/2023 13:31 At the request of: GEOFFREY DOMÍNGUEZ Procedure: XR lumbar spine min 4V EXAMINATION: XR lumbar spine min 4V HISTORY: left lower leg pain, radicular symptoms lumbar spine COMPARISON: No relevant comparison available. FINDINGS: BONES: Rotatory levocurvature centered at L3. No spondylolisthesis. Moderate spondylosis and moderate to severe facet arthropathy most significant at L5-S1 DISC SPACES: Multilevel disc space narrowing with endplate sclerosis and vacuum disks most significant at L2-L3 and L5-S1 PARASPINOUS: Negative. No paraspinous abnormality is seen. OTHER: Negative. XR/XR lumbar spine min 4V IMPRESSION: Moderate to severe degenerative changes Electronically authenticated by: LORI ROJAS Date: 10/31/2023 13:31
--- OUTSIDE RECORDS SUMMARY | 2023-10-31 12:46 | XMS_ITS | CCD ---
Author Organization [facility] Care Team Providers Care Workers Compensation Analyst Name Role Phone Supriya Brown Unavailable AICTHERON, RADHA SHAISTA Primary Care Unavailable MARKER ., DR KELLER Attending Unavailable MARKER ., DR KELLER Admitting Unavailable AICHHOLZ, RADHA SHAISTA Primary Care Unavailable CHRISTINA STEVENS Consulting Unavailable JENIFER ., MERI Attending Unavailable JENIFER ., MERI Admitting Unavailable SKYE WOODS Consulting Unavailable CHERI .CATRACHITO Consulting Unavailable AICHHOLZ, PLASTICS WORKER SHAISTA Primary Care Unavailable CHRISTINA STEVENS Attending Unavailable CHRISTINA STEVENS Admitting Unavailable LORI RODRIGUEZ Consulting Unavailable AICHHOLZ, PLASTICS WORKER SHAISTA Primary Care Unavailable MIKKI .VASILE Attending Unavailable MIKKI VASILE Glaser Consulting Unavailable MIKKI .MICKID Admitting Unavailable LORI DOWNEY Consulting Unavailable MERI SIMPSON Consulting Unavailable Shaista Corona Primary Care Provider [phone] MD Derek Alex Admit Provider MD Sanjay Holt Other Provider MD Reginald Arroyo Other Provider [phone] MD Rubi Ramos Attending Provider MARLO Silva Emergency Provider MARLO Gay Attending Provider Ismael Huitron Unavailable Gregg PATTEN Attending Unavailable Gregg PATTEN Attending Unavailable Rosa CORTEZ Attending Unavailable Gregg PATTEN Attending Unavailable Shaista Cornoa Primary Care Provider [phone] DARLINE Garcia Emergency Provider SHAISTA CORONA Attending [...] (1 source) Azithromycin Drug Allergy Unknown [facility] 1calendar Other (3 sources) Penicillin; Translations: [penicillin] Drug Allergy Unknown [facility] Repository (1 source) Azithromycin Drug Allergy [facility] Repository (5 sources) Erythromycin Drug Allergy 3 Rash [facility] Repository (1 source) E.E.S. Drug allergy (disorder) 3 [facility] Repository (5 sources) Penicillins; Translations: [Penicillins] Allergy to substance 3 Anaphylaxis [facility] (1 source) Erythromycin Drug Allergy rash [facility] 1calendar Other (1 source) erythromycin base Drug allergy (disorder) 4 [facility] Repository Medications Current Medications Medication Drug Class(es) Dates Sig (Normalized) Sig (Original) [id number] 200 actuat albuterol 0.09 mg/actuat metered dose [...] mg/ml oral solution (1 source) Phenothiazine, Uncompetitive N-fkxszi-V-aspartate Receptor Antagonist, Sigma-1 Agonist Start: 07-31-2023 take [...] 11-05-2022 Chronic Other aftercare (1 source) Other terminologist (current) drug therapy; Translations: [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 SARS-CoV-2 (COVID-19) RNA ROWENA+probe Ql (Unsp spec) [facility] COVID-19 / Flu A/B / RSV PCR on 07-31-2023 SARS-CoV-2 (COVID-19) RNA ROWENA+probe Ql (Unsp spec) Normal [facility] Comment on above: Performed By: #### C OVID19 FLU RSV, CEPHEID NEG ####[facility] [address] [place] [address] [facility] Cepheid COVID PCR Negativeon 07-31-2023 SARS-CoV-2 (COVID-19) RNA ROWENA+probe Ql (Unsp spec) Negative Normal Negative [facility] Comment on above: Result Comment: This is a duplicate Cepheid Xpert Xpress CoV-2/Flu/RSV Plus RNA by RT-PCR result to be used for statistical tracking purpose only.PERFORMED BY:[place] [id number] [place] [place] [id number] MEDICAL DIRECTORNATI LAUREN M.D. Performed By: #### C OVID19 FLU RSV, CEPHEID NEG ####[facility] [address] [place] [address] [facility] Consenton 05-23-2023 Consent [id number]#1.00TIFF [facility] Registrationon 05-23-2023 Registration [id number]#1.00TIFF [facility] XR chest 2V*on 12-26-2022 XR chest 2V* [facility] Cons[place] 12-15-2022 Consent [id number]#1.00CD:1 27 [facility] In office Testingon 12-16-19 23 In office Testing [id number]#1.00CD:12 7 [facility] Registrationon 12-15-2022 Registration [id number]#1.00CD:1 27 [facility] Activated partial thrombopla stin time (aPTT) in platelet poor plasma by coagulation aOrdered By: Lisha Silva on 12-08-2022 aPTT Coag (PPP) [Time] 23.5 s 25.1-36.5 [facility] Automated erythrocytes count in urine sediment (number/area)Ordered By: Lisha Silva on 12-08-2022 RBC Auto (Urine sed) [#/Area] 1-2 [HPF] 0-4 [facility] Automated leukocytes count i n urine sediment (number/area)Ordered By: Lisha Silva on 12-08-2022 WBC Auto (Urine sed) [#/Area] None seen [HPF] 0-4 [facility] B-Type Natriuretic Peptideon 12-08-2022 Natriuretic peptide B (Bld) [Mass/Vol] 22.0 pg/mL Normal 5-100 [facility] Comment on above: Result Comment: PERF ORMED BY:[address] [place], [place] [phone] MEDICAL DIRECTORNATI LAUREN M.D. Performed By: #### H S TROP, CBC, BMP, BNP, DDIMER, PT, PTT ####[place] [id number] [facility] Basic Metabolic Panelon Anion gap [Moles/Vol] 10.9 mmol/L Normal 6.0-15.0 [facility] Comment on above: Performed By: #### H S TROP, CBC, BMP, BNP, DDIMER, PT, PTT ####[place] [id number] [facility] Calcium [Mass/Vol] 8.6 mg/dL Normal 8.6-10.3 [facility] Comment on above: Performed By: #### H S TROP, CBC, BMP, BNP, DDIMER, PT, PTT ####[place] [id number] [facility] Chloride [Moles/Vol] 105 mmol/L Normal 98-107 [facility] Comment on above: Performed By: #### H S TROP, CBC, BMP, BNP, DDIMER, PT, PTT ####[facility] [place] [address] [facility] CO2 [Moles/Vol] 28.0 mmol/L Normal 21.0-31.0 [facility] Comment on above: Performed By: #### H S TROP, CBC, BMP, BNP, DDIMER, PT, PTT ####[place] [address] [place] [address] [facility] Creatinine [Mass/Vol] 0.53 mg/dL Low 0.70-1.30 [facility] Comment on above: Performed By: #### H S TROP, CBC, BMP, BNP, DDIMER, PT, PTT ####[place] [address] [place] [address] [facility] Creatinine Clr Calc Pharmacy 188.22 [facility] Comment on above: Result Comment: PERF ORMED BY:[address] [place], [place] [phone] MEDICAL DIRECTORNATI LAUREN M.D. Performed By: #### H S TROP, CBC, BMP, BNP, DDIMER, PT, PTT ####[place] [address] [place] [address] [facility] GFR/1.73 sq M.predicted MDRD (S/P/Bld) [Vol rate/Area] mL/min/{1.73_m2} [facility] Comment on above: Performed By: #### H S TROP, CBC, BMP, BNP, DDIMER, PT, PTT ####[place] [address] [place] [address] [facility] Glucose [Mass/Vol] 99 mg/dL Normal 70-100 [facility] Comment on above: Result Comment: [place] Glucose Reference Range is dependent on time and content of last meal. Glucose of more than 200 mg/dL in a nonstressed, ambulatory subject supports the diagnosis of Diabetes Mellitus. ADA recommended reference range Performed By: #### H S TROP, CBC, BMP, BNP, DDIMER, PT, PTT ####[place] [address] [place] [address] [facility] Potassium [Moles/Vol] 3.9 mmol/L Normal 3.5-5.1 [facility] Comment on above: Performed By: #### H S TROP, CBC, BMP, BNP, DDIMER, PT, PTT ####[facility] [id number] Sodium [Moles/Vol] 140 mmol/L Normal 136-145 [facility] Comment on above: Performed By: #### H S TROP, CBC, BMP, BNP, DDIMER, PT, PTT ####[facility] [address] Urea nitrogen [Mass/Vol] 11 mg/dL Normal 7-25 [facility] Comment on above: Performed By: #### H S TROP, CBC, BMP, BNP, DDIMER, PT, PTT ####[facility] Basophils Auto (Bld) [#/Vol] Ordered By: Lisha Silva on 12-08-2022 Basophils (Bld) [#/Vol] 0.2 10*3/uL 0.0-0.2 [facility] Basophils/100 WBC Auto (Bld) Ordered By: Lisha Silva on 12-08-2022 Basophils/100 WBC (Bld) 2.6 % . [facility] Bilirubin Test strip Ql (U)O rdered By: Lisha Silva on 12-08-2022 Bilirubin Ql (U) Negative Negative [facility] CT angio chest PE protocolon 12-08-2022 CT angio chest PE protocol Normal [facility] Calcium [Mass/volume] in Ser um or PlasmaOrdered By: Lisha Silva on 12-08-2022 Calcium [Mass/Vol] 8.6 mg/dL 8.6-10.3 [facility] Carbon dioxide, total [Moles /volume] in Serum or PlasmaOrdered By: Lisha Silva on 12-08-2022 CO2 [Moles/Vol] 28.0 mmol/L 21.0-31.0 [facility] Chloride [Moles/volume] in S thang or PlasmaOrdered By: Lisha Silva on 12-08-2022 Chloride [Moles/Vol] 105 mmol/L 98-107 [facility] Color Auto (U)Ordered By: Khadijah Silva on 12-08-2022 Color (U) Yellow Yellow [facility] Complete Blood Count Auto Di ffon 12-08-2022 Basophils (Bld) [#/Vol] 0.2 10*3/uL Normal 0.0-0.2 [facility] Comment on above: Result Comment: PERF ORMED BY:[address] [place], [place] [id number] MEDICAL DIRECTORNATI LAUREN M.D. Performed By: #### H S TROP, CBC, BMP, BNP, DDIMER, PT, PTT ####[address] Basophils/100 WBC (Bld) 2.6 % Normal . [facility] Comment on above: Performed By: #### H S TROP, CBC, BMP, BNP, DDIMER, PT, PTT ####[address] Eosinophils (Bld) [#/Vol] 0.3 10*3/uL Normal 0.0-0.45 [facility] Comment on above: Performed By: #### H S TROP, CBC, BMP, BNP, DDIMER, PT, PTT ####[address] Eosinophils/100 WBC (Bld) 3.8 % Normal . [facility] Comment on above: Performed By: #### H S TROP, CBC, BMP, BNP, DDIMER, PT, PTT ####[address] Erythrocyte distribution width (RBC) [Ratio] 14.8 % Normal 12.0-14.8 [facility] Comment on above: Performed By: #### H S TROP, CBC, BMP, BNP, DDIMER, PT, PTT ####[address] Hematocrit (Bld) [Volume fraction] 35.8 % Low 38.8-50.0 [facility] Comment on above: Performed By: #### H S TROP, CBC, BMP, BNP, DDIMER, PT, PTT ####[address] Hemoglobin (Bld) [Mass/Vol] 12.0 g/dL Low 13.0-17.0 [facility] Comment on above: Performed By: #### H S TROP, CBC, BMP, BNP, DDIMER, PT, PTT ####[address] Lymphocytes (Bld) [#/Vol] 3.7 10*3/uL Normal 1.00-4.8 [facility] Comment on above: Performed By: #### H S TROP, CBC, BMP, BNP, DDIMER, PT, PTT ####[address] Lymphocytes/100 WBC (Bld) 48.0 % Normal . [facility] Comment on above: Performed By: #### H S TROP, CBC, BMP, BNP, DDIMER, PT, PTT ####[address] MCH (RBC) [Entitic mass] 30.4 pg Normal 27.5-35.2 [facility] Comment on above: Performed By: #### H S TROP, CBC, BMP, BNP, DDIMER, PT, PTT ####[address] MCV (RBC) [Entitic vol] 90.4 fL Normal 83.5-101 [facility] Comment on above: Performed By: #### H S TROP, CBC, BMP, BNP, DDIMER, PT, PTT ####[address] Mean Corpuscular HGB Conc 33.6 g/dL Normal 32.5-35.6 [facility] Comment on above: Performed By: #### H S TROP, CBC, BMP, BNP, DDIMER, PT, PTT ####[place] [address] [place] Monocytes (Bld) [#/Vol] 0.7 10*3/uL Normal 0.0-0.8 [facility] Comment on above: Performed By: #### H S TROP, CBC, BMP, BNP, DDIMER, PT, PTT ####[address] Monocytes/100 WBC (Bld) 21.84 % High 0.00-20.00 [facility] Comment on above: Result Comment: For adults in ED, MDW > 20.0 may be associated with a higher risk of sepsis during the first 12 hrs of hospital admission Performed By: #### H S TROP, CBC, BMP, BNP, DDIMER, PT, PTT ####[address] Monocytes/100 WBC (Bld) 9.6 % Normal . [facility] Comment on above: Performed By: #### H S TROP, CBC, BMP, BNP, DDIMER, PT, PTT ####[address] Neutrophils (Bld) [#/Vol] 2.7 10*3/uL Normal 1.8-7.7 [facility] Comment on above: Performed By: #### H S TROP, CBC, BMP, BNP, DDIMER, PT, PTT ####[address] Neutrophils/100 WBC (Bld) 36.0 % Normal . [facility] Comment on above: Performed By: #### H S TROP, CBC, BMP, BNP, DDIMER, PT, PTT ####[address] NRBC% 0.1 /100{WBC} Normal 0-0.5 [facility] Comment on above: Performed By: #### H S TROP, CBC, BMP, BNP, DDIMER, PT, PTT ####[address] Platelet mean volume (Bld) [Entitic vol] 7.6 fL Normal 6.6-10.1 [facility] Comment on above: Performed By: #### H S TROP, CBC, BMP, BNP, DDIMER, PT, PTT ####[facility] Platelets (Bld) [#/Vol] 299 10*3/uL Normal 150-450 [facility] Comment on above: Performed By: #### H S TROP, CBC, BMP, BNP, DDIMER, PT, PTT ####[place] [address] RBC (Bld) [#/Vol] 3.96 10*6/uL Normal 3.90-5.60 [facility] Comment on above: Performed By: #### H S TROP, CBC, BMP, BNP, DDIMER, PT, PTT ####[facility] WBC (Bld) [#/Vol] 7.6 10*3/uL Normal 4.1-10.5 [facility] Comment on above: Performed By: #### H S TROP, CBC, BMP, BNP, DDIMER, PT, PTT ####[facility] Creatinine [Mass/volume] in Serum or PlasmaOrdered By: Lisha Silva on 12-08-2022 Creatinine [Mass/Vol] 0.53 mg/dL 0.70-1.30 [facility] D-Dimer High Sensitivityon 0 12-08-2022 D-Dimer High Sensitivity 435 ng/mL High 0-243 [facility] Comment on above: Result Comment: The reference [...] in hospitalized patients due to co-morbid conditions.PERFORMED BY:[facility] [place], [place] [phone] MEDICAL ALEKSANDAR LAUREN M.D. Performed By: #### H S TROP, CBC, BMP, BNP, DDIMER, PT, PTT ####[address] [address] [facility] Dipstick and Microscopicon 0 12-08-2022 Appearance (U) Clear Normal Clear [facility] Comment on above: Order Comment: Name Collection Type:: Clean-Voided Midstream Performed By: #### A DDONUAPLUS ####[address] [address] [facility] Bacteria,Urine None Seen Normal None Seen [facility] Comment on above: Order Comment: Name Collection Type:: Clean-Voided Midstream Performed By: #### A DDONUAPLUS ####[address] [address] [facility] Bilirubin,Urine Negative Normal Negative [facility] Comment on above: Order Comment: Name Collection Type:: Clean-Voided Midstream Performed By: #### A DDONUAPLUS ####[address] [address] [facility] Color (U) Yellow Normal Yellow [facility] Comment on above: Order Comment: Name Collection Type:: Clean-Voided Midstream Performed By: #### A DDONUAPLUS ####[address] [address] [facility] Glucose Ql (U) Normal Normal Normal [facility] Comment on above: Order Comment: Name Collection Type:: Clean-Voided Midstream Performed By: #### A DDONUAPLUS ####[address] [address] [facility] Hyaline Casts,Urine 0-8 Normal 0-8 [facility] Comment on above: Order Comment: Name Collection Type:: Clean-Voided Midstream Result Comment: PERF ORMED BY:[place] [address] [place], [place] [phone] MEDICAL DIRECTORNATI LAUREN M.D. Performed By: #### A DDONUAPLUS ####[address] [address] [facility] Ketones Ql (U) Negative Normal Negative [facility] Comment on above: Order Comment: Name Collection Type:: Clean-Voided Midstream Performed By: #### A DDONUAPLUS ####[address] [address] [facility] Leukocyte esterase Test strip Ql (U) Negative Normal Negative [facility] Comment on above: Order Comment: Name Collection Type:: Clean-Voided Midstream Performed By: #### A DDONUAPLUS ####[address] [address] [facility] Nitrite,Urine Negative Normal Negative [facility] Comment on above: Order Comment: Name Collection Type:: Clean-Voided Midstream Performed By: #### A DDONUAPLUS ####[address] [address] [facility] Occult Blood,Urine Trace High Negative [facility] Comment on above: Order Comment: Name Collection Type:: Clean-Voided Midstream Result Comment: PERF ORMED BY:[address] [place], [place] [phone] MEDICAL DIRECTORNATI LAUREN M.D. Performed By: #### A DDONUAPLUS ####[address] [address] [facility] pH (U) 6.5 [pH] Normal 5.0-9.0 [facility] Comment on above: Order Comment: Name Collection Type:: Clean-Voided Midstream Performed By: #### A DDONUAPLUS ####[address] [address] [facility] Protein,Urine Negative Normal Negative [facility] Comment on above: Order Comment: Name Collection Type:: Clean-Voided Midstream Performed By: #### A DDONUAPLUS ####[address] [address] [facility] RBC,Urine 1-2 Normal 0-4 [facility] Comment on above: Order Comment: Name Collection Type:: Clean-Voided Midstream Performed By: #### A DDONUAPLUS ####[address] [address] [facility] Specificy Wing,Urine 1.040 High 1.001-1.03 0 [facility] Comment on above: Order Comment: Name Collection Type:: Clean-Voided Midstream Performed By: #### A DDONUAPLUS ####[address] [address] [facility] Squamous Epithelial Cell,Urine None Seen Normal 0-2 [facility] Comment on above: Order Comment: Name Collection Type:: Clean-Voided Midstream Performed By: #### A DDONUAPLUS ####[address] [address] [facility] Urobilinogen,Urine Normal Normal Normal [facility] Comment on above: Order Comment: Name Collection Type:: Clean-Voided Midstream Performed By: #### A DDONUAPLUS ####[address] [address] [facility] WBC,Urine None Seen Normal 0-4 [facility] Comment on above: Order Comment: Name Collection Type:: Clean-Voided Midstream Performed By: #### A DDONUAPLUS ####[address] [address] [facility] ECG 12 lead ECGon 12-08-2022 ECG 12 lead ECG Normal [facility] Eosinophils Auto (Bld) [#/Vo l]Ordered By: Lisha Silva on 12-08-2022 Eosinophils (Bld) [#/Vol] 0.3 10*3/uL 0.0-0.45 [facility] Eosinophils/100 WBC Auto (Bl d)Ordered By: Lisha Silva on 12-08-2022 Eosinophils/100 WBC (Bld) 3.8 % . [facility] Erythrocyte distribution wid th Auto (RBC) [Ratio]Ordered By: Lisha Silva on 12-08-2022 Erythrocyte distribution width (RBC) [Ratio] 14.8 % 12.0-14.8 [facility] Glucose [Mass/volume] in Ser um or PlasmaOrdered By: Lisha Silva on 12-08-2022 Glucose [Mass/Vol] 99 mg/dL 70-100 [facility] Comment on above: ADA recommended refe rence rangeRandom Glucose Reference Range is dependent on time and content of last meal. Glucose of more than 200 mg/dL in a nonstressed, ambulatory subject supports the diagnosis of Diabetes Mellitus. Hematocrit Auto (Bld) [Volum e fraction]Ordered By: Lisha Silva on 12-08-2022 Hematocrit (Bld) [Volume fraction] 35.8 % 38.8-50.0 [facility] Hemoglobin [Mass/volume] in BloodOrdered By: Lisha Silva on 12-08-2022 Hemoglobin (Bld) [Mass/Vol] 12.0 g/dL 13.0-17.0 [facility] Ketones Auto test strip (U) [Mass/Vol]Ordered By: Lisha Silva on 12-08-2022 Ketones (U) [Mass/Vol] Negative Negative [facility] Laboratory - CoagulationOrde red By: Lisha Silva on 12-08-2022 PT Coag (PPP) [Time] 12.6 s 9.0-12.9 [facility] Laboratory - UrinalysisOrder ed By: Lisha Silva on 12-08-2022 Hyaline casts LM Ql (Urine sed) 0-8 [LPF] 0-8 [facility] Leukocytes [#/volume] correc wiliam for nucleated erythrocytes in Blood by Automated counOrdered By: Lisha Silva on 12-08-2022 WBC corrected for nucl RBC Auto (Bld) [#/Vol] 7.6 10*3/uL 4.1-10.5 [facility] Lymphocytes Auto (Bld) [#/Vo l]Ordered By: Lisha Silva on 12-08-2022 Lymphocytes (Bld) [#/Vol] 3.7 10*3/uL 1.00-4.8 [facility] Lymphocytes/100 WBC Auto (Bl d)Ordered By: Lisha Silva on 12-08-2022 Lymphocytes/100 WBC (Bld) 48.0 % . [facility] MCH Auto (RBC) [Entitic mass ]Ordered By: Lisha Silva on 12-08-2022 MCH (RBC) [Entitic mass] 30.4 pg 27.5-35.2 [facility] MCHC Auto (RBC) [Mass/Vol]Or dered By: Lisha Silva on 12-08-2022 MCHC (RBC) [Mass/Vol] 33.6 g/dL 32.5-35.6 [facility] MCV Auto (RBC) [Entitic vol] Ordered By: Lisha Silva on 12-08-2022 MCV (RBC) [Entitic vol] 90.4 fL 83.5-101 [facility] Monocyte distribution width [Entitic volume] in Blood by AutomatedOrdered By: Lisha Silva on 12-08-2022 Monocyte distribution width Auto (Bld) [Entitic vol] 21.84 % 0.00-20.00 [facility] Comment on above: For adults in ED, MD W > 20.0 may be associated with a higher risk of sepsis during the first 12 hrs of hospital admission Monocytes Auto (Bld) [#/Vol] Ordered By: Lisha Silva on 12-08-2022 Monocytes (Bld) [#/Vol] 0.7 10*3/uL 0.0-0.8 [facility] Monocytes/100 WBC Auto (Bld) Ordered By: Lisha Silva on 12-08-2022 Monocytes/100 WBC (Bld) 9.6 % . [facility] Natriuretic peptide B [Mass/ Vol]Ordered By: Lisha Silva on 12-08-2022 Natriuretic peptide B (Bld) [Mass/Vol] 22.0 pg/mL 5-100 [facility] Neutrophils Auto (Bld) [#/Vo l]Ordered By: Lisha Silva on 12-08-2022 Neutrophils (Bld) [#/Vol] 2.7 10*3/uL 1.8-7.7 [facility] Neutrophils/100 WBC Auto (Bl d)Ordered By: Lisha Silva on 12-08-2022 Neutrophils/100 WBC (Bld) 36.0 % . [facility] Nitrite Test strip Ql (U)Ord ered By: Lisha Silva on 12-08-2022 Nitrite Ql (U) Negative Negative [facility] No Panel InformationOrdered By: Lisha Silva on 12-08-2022 D-Dimer Quantitative (PE/DVT) 435 ng/mL 0-243 [facility] Comment on above: The reference range for [...] Estimated GFR (CKD-EPI) > 60.0 mL/Min [facility] Creatinine Clearance (Chem 188.22 [facility] Nucleated erythrocytes [Pres ence] in Blood by Automated countOrdered By: Lisha Silva on 12-08-2022 Nucleated RBC Auto Ql (Bld) 0.1 /100{WBC} 0-0.5 [facility] Partial Thromboplastin Timeo n 12-08-2022 aPTT Coag (Bld) [Time] 23.5 s Low 25.1-36.5 [facility] Comment on above: Performed By: #### H S TROP, CBC, BMP, BNP, DDIMER, PT, PTT ####[facility] [id number] [facility] Platelet mean volume Auto (B ld) [Entitic vol]Ordered By: Lisha Silva on 12-08-2022 Platelet mean volume (Bld) [Entitic vol] 7.6 fL 6.6-10.1 [facility] Platelet poor plasma interna tional normalized ratio (INR) by coagulation assay (relatOrdered By: Lisha Silva on 12-08-2022 INR Coag (PPP) [Relative time] 1.1 {INR} [facility] Comment on above: INR Therapeutic Rang e [...] Platelets (Bld) [#/Vol] 299 10*3/uL 150-450 [facility] Potassium [Moles/volume] in Serum or PlasmaOrdered By: Lisha Silva on 12-08-2022 Potassium [Moles/Vol] 3.9 mmol/L 3.5-5.1 [facility] Protein Auto test strip (U) [Mass/Vol]Ordered By: Lisha Silva on 12-08-2022 Protein (U) [Mass/Vol] Negative Negative [facility] Prothrombin Time INRon 12-08 INR Coag (PPP) [Relative time] 1.1 {INR} Normal [facility] Comment on above: Result Comment: INR Therapeutic [...] TROP, CBC, BMP, BNP, DDIMER, PT, PTT ####[facility] [id number] PT Coag (PPP) [Time] 12.6 s Normal 9.0-12.9 [facility] Comment on above: Performed By: #### H S TROP, CBC, BMP, BNP, DDIMER, PT, PTT ####[facility] [id number] [facility] RBC Auto (Bld) [#/Vol]Ordere d By: Lisha Silva on 12-08-2022 RBC (Bld) [#/Vol] 3.96 10*6/uL 3.90-5.60 [facility] Serum or plasma anion gap de terminationOrdered By: Lisha Silva on 12-08-2022 Anion gap [Moles/Vol] 10.9 mmol/L 6.0-15.0 [facility] Sodium [Moles/volume] in Ser um or PlasmaOrdered By: Lisha Silva on 12-08-2022 Sodium [Moles/Vol] 140 mmol/L 136-145 [facility] Specific gravity Auto test s trip (U) [Rel density]Ordered By: Lisha Silva on 12-08-2022 Specific gravity (U) [Rel density] 1.040 1.001-1.03 0 [facility] Squamous epithelial cells de tection in urine sediment by light microscopyOrdered By: Lisha Silva on 12-08-2022 Epithelial cells.squamous LM Ql (Urine sed) None seen [HPF] 0-2 [facility] Troponin I High Sensitivityo n 12-08-2022 Troponin I High Sensitivity 3.7 pg/mL Normal 0.0-20.0 [facility] Comment on above: Result Comment: PERF ORMED BY:[facility] [place], [place] [phone] MEDICAL DIRECTORNATI LAUREN M.D. Performed By: #### H S TROP, CBC, BMP, BNP, DDIMER, PT, PTT ####[facility] [id number] [place] [address] [facility] Troponin I.cardiac [Mass/vol ume] in Serum or Plasma by Detection limit <= 0.01 ng/Ordered By: Lisha Silva on 12-08-2022 Troponin I.cardiac DL <= 0.01 ng/mL [Mass/Vol] 3.7 pg/mL 0.0-20.0 [facility] Urea nitrogen [Mass/volume] in Serum or PlasmaOrdered By: Lisha Silva on 12-08-2022 Urea nitrogen [Mass/Vol] 11 mg/dL 7-25 [facility] Urine bacteria detection by automated methodOrdered By: Lisha Silva on 12-08-2022 Bacteria Auto Ql (U) None seen None Seen [facility] Urine clarity by refractomet ry automatedOrdered By: Lisha Silva on 12-08-2022 Clarity Refractometry automated (U) Clear Clear [facility] Urine glucose measurement by automated test strip (mass/volume)Ordered By: Lisha Silva on 12-08-2022 Glucose Auto test strip (U) [Mass/Vol] Normal mg/dL Normal [facility] Urine hemoglobin detection b y automated test stripOrdered By: Lisha Silva on 12-08-2022 Hemoglobin Auto test strip Ql (U) Trace Negative [facility] Urine leukocyte esterase det ection by automated test stripOrdered By: Lisha Silva on 12-08-2022 Leukocyte esterase Auto test strip Ql (U) Negative Negative [facility] Urobilinogen Auto test strip (U) [Mass/Vol]Ordered By: Lisha Silva on 12-08-2022 Urobilinogen (U) [Mass/Vol] Normal mg/dL Normal [facility] WBC Auto (Bld) [#/Vol]Ordere d By: Lisha Silva on 12-08-2022 WBC (Bld) [#/Vol] 7.6 10*3/uL 4.1-10.5 [facility] pH Auto test strip (U)Ordere d By: Lisha Silva on 12-08-2022 pH (U) 6.5 [pH] 5.0-9.0 [facility] Alanine aminotransferase [En zymatic activity/volume] in Serum or PlasmaOrdered By: Shant Villegas on 11-21-2022 ALT [Catalytic activity/Vol] 40 U/L 7-52 [facility] Albumin [Mass/volume] in Ser um or Plasma by Bromocresol green (BCG) dye binding methoOrdered By: Shant Villegas on 11-21-2022 Albumin BCG dye [Mass/Vol] 2.3 g/dL 3.5-5.7 [facility] Alkaline phosphatase [Enzyma tic activity/volume] in Serum or PlasmaOrdered By: Shant Villegas on 11-21-2022 ALP [Catalytic activity/Vol] 110 U/L 34-104 [facility] Aspartate aminotransferase [ Enzymatic activity/volume] in Serum or PlasmaOrdered By: Shant Villegas on 11-21-2022 AST [Catalytic activity/Vol] 25 U/L 13-39 [facility] Basophils Auto (Bld) [#/Vol] Ordered By: Evi Gay on 11-21-2022 Basophils (Bld) [#/Vol] 0.1 10*3/uL 0.0-0.2 [facility] Basophils/100 WBC Auto (Bld) Ordered By: Evi Gay on 11-21-2022 Basophils/100 WBC (Bld) 1.4 % . [facility] Bilirubin.total [Mass/volume ] in Serum or PlasmaOrdered By: Shant Villegas on 11-21-2022 Bilirubin [Mass/Vol] 0.4 mg/dL 0.3-1.0 [facility] Calcium [Mass/volume] in Ser um or PlasmaOrdered By: Shant Villegas on 11-21-2022 Calcium [Mass/Vol] 8.1 mg/dL 8.6-10.3 [facility] Carbon dioxide, total [Moles /volume] in Serum or PlasmaOrdered By: Shant Villegas on 11-21-2022 CO2 [Moles/Vol] 31.0 mmol/L 21.0-31.0 [facility] Chloride [Moles/volume] in S thang or PlasmaOrdered By: Shant Villegas on 11-21-2022 Chloride [Moles/Vol] 105 mmol/L 98-107 [facility] Complete Blood Count Auto Di ffon 11-21-2022 Basophils (Bld) [#/Vol] 0.1 10*3/uL Normal 0.0-0.2 [facility] Comment on above: Result Comment: PERF ORMED BY:[facility] [place], [place] [phone] MEDICAL DIRECTORNATI LAUREN M.D. Performed By: #### C ####[facility] [place] [address] [facility] Basophils/100 WBC (Bld) 1.4 % Normal . [facility] Comment on above: Performed By: #### C BC ####[address] Eosinophils (Bld) [#/Vol] 0.3 10*3/uL Normal 0.0-0.45 [facility] Comment on above: Performed By: #### C BC ####[address] Eosinophils/100 WBC (Bld) 3.7 % Normal . [facility] Comment on above: Performed By: #### C BC ####[address] Erythrocyte distribution width (RBC) [Ratio] 13.8 % Normal 12.0-14.8 [facility] Comment on above: Performed By: #### C BC ####[address] Hematocrit (Bld) [Volume fraction] 25.0 % Low 38.8-50.0 [facility] Comment on above: Performed By: #### C BC ####[address] Hemoglobin (Bld) [Mass/Vol] 8.4 g/dL Low 13.0-17.0 [facility] Comment on above: Performed By: #### C BC ####[address] Lymphocytes (Bld) [#/Vol] 2.2 10*3/uL Normal 1.00-4.8 [facility] Comment on above: Performed By: #### C BC ####[address] Lymphocytes/100 WBC (Bld) 28.3 % Normal . [facility] Comment on above: Performed By: #### C BC ####[address] MCH (RBC) [Entitic mass] 30.2 pg Normal 27.5-35.2 [facility] Comment on above: Performed By: #### C BC ####[address] [place] [address] [facility] MCV (RBC) [Entitic vol] 89.8 fL Normal 83.5-101 [facility] Comment on above: Performed By: #### C BC ####[address] [address] [facility] Mean Corpuscular HGB Conc 33.6 g/dL Normal 32.5-35.6 [facility] Comment on above: Performed By: #### C BC ####[address] [address] [facility] Monocytes (Bld) [#/Vol] 0.8 10*3/uL Normal 0.0-0.8 [facility] Comment on above: Performed By: #### C BC ####[address] [address] [facility] Monocytes/100 WBC (Bld) 10.5 % Normal . [facility] Comment on above: Performed By: #### C BC ####[address] [address] [facility] Neutrophils (Bld) [#/Vol] 4.4 10*3/uL Normal 1.8-7.7 [facility] Comment on above: Performed By: #### C BC ####[address] [address] [facility] Neutrophils/100 WBC (Bld) 56.1 % Normal . [facility] Comment on above: Performed By: #### C BC ####[address] [address] [facility] NRBC% 0.2 /100{WBC} Normal 0-0.5 [facility] Comment on above: Performed By: #### C BC ####[address] [address] [facility] Platelet mean volume (Bld) [Entitic vol] 7.2 fL Normal 6.6-10.1 [facility] Comment on above: Performed By: #### C BC ####[address] [address] [place] [address] [facility] Platelets (Bld) [#/Vol] 486 10*3/uL High 150-450 [facility] Comment on above: Performed By: #### C BC ####[address] [address] [facility] RBC (Bld) [#/Vol] 2.78 10*6/uL Low 3.90-5.60 [facility] Comment on above: Performed By: #### C BC ####[address] [address] [facility] WBC (Bld) [#/Vol] 7.9 10*3/uL Normal 4.1-10.5 [facility] Comment on above: Performed By: #### C BC ####[address] [address] [facility] Comprehensive Metabolic Pane tiago 11-21-2022 Albumin [Mass/Vol] 2.3 g/dL Low 3.5-5.7 [facility] Comment on above: Performed By: #### C MP, MG ####[place] [id number] [facility] Albumin/Globulin [Mass ratio] 0.7 {ratio} Normal [facility] Comment on above: Performed By: #### C MP, MG ####[address] [address] [facility] ALP [Catalytic activity/Vol] 110 U/L High 34-104 [facility] Comment on above: Performed By: #### C MP, MG ####[address] [address] [facility] ALT [Catalytic activity/Vol] 40 U/L Normal 7-52 [facility] Comment on above: Performed By: #### C MP, MG ####[place] [id number] [facility] Anion gap [Moles/Vol] 8.7 mmol/L Normal 6.0-15.0 [facility] Comment on above: Performed By: #### C MP, MG ####[facility] [place] [address] [facility] AST [Catalytic activity/Vol] 25 U/L Normal 13-39 [facility] Comment on above: Performed By: #### C MP, MG ####[facility] [place] [address] [facility] Bilirubin [Mass/Vol] 0.4 mg/dL Normal 0.3-1.0 [facility] Comment on above: Performed By: #### C MP, MG ####[address] [place] [address] [facility] Calcium [Mass/Vol] 8.1 mg/dL Low 8.6-10.3 [facility] Comment on above: Performed By: #### C MP, MG ####[address] [place] [address] [facility] Chloride [Moles/Vol] 105 mmol/L Normal 98-107 [facility] Comment on above: Performed By: #### C MP, MG ####[address] [place] [address] [facility] CO2 [Moles/Vol] 31.0 mmol/L Normal 21.0-31.0 [facility] Comment on above: Performed By: #### C MP, MG ####[address] [place] [address] [facility] Creatinine [Mass/Vol] 0.43 mg/dL Low 0.70-1.30 [facility] Comment on above: Performed By: #### C MP, MG ####[address] [place] [address] [facility] Creatinine Clr Calc Pharmacy 231.99 [facility] Comment on above: Performed By: #### C MP, MG ####[address] [place] [address] [place] GFR/1.73 sq M.predicted MDRD (S/P/Bld) [Vol rate/Area] mL/min/{1.73_m2} [facility] Comment on above: Performed By: #### C MP, MG ####[address] [place] [id number] [facility] Globulin (S) [Mass/Vol] 3.4 g/dL Normal [facility] Comment on above: Performed By: #### C MP, MG ####[place] [id number] [facility] Glucose [Mass/Vol] 105 mg/dL High 70-100 [facility] Comment on above: Result Comment: [place] Glucose Reference Range is dependent on time and content of last meal. Glucose of more than 200 mg/dL in a nonstressed, ambulatory subject supports the diagnosis of Diabetes Mellitus. ADA recommended reference range Performed By: #### C MP, MG ####[place] [id number] [facility] Potassium [Moles/Vol] 3.7 mmol/L Normal 3.5-5.1 [facility] Comment on above: Performed By: #### C MP, MG ####[place] [id number] [facility] Protein [Mass/Vol] 5.7 g/dL Low 6.4-8.9 [facility] Comment on above: Performed By: #### C MP, MG ####[place] [id number] [facility] Sodium [Moles/Vol] 141 mmol/L Normal 136-145 [facility] Comment on above: Performed By: #### C MP, MG ####[place] [id number] [facility] Urea nitrogen [Mass/Vol] 11 mg/dL Normal 7-25 [facility] Comment on above: Performed By: #### C MP, MG ####[place] [id number] [facility] Creatinine [Mass/volume] in Serum or PlasmaOrdered By: Shant Villegas on 11-21-2022 Creatinine [Mass/Vol] 0.43 mg/dL 0.70-1.30 [facility] Eosinophils Auto (Bld) [#/Vo l]Ordered By: Evi Gay on 11-21-2022 Eosinophils (Bld) [#/Vol] 0.3 10*3/uL 0.0-0.45 [facility] Eosinophils/100 WBC Auto (Bl d)Ordered By: Evi Gay on 11-21-2022 Eosinophils/100 WBC (Bld) 3.7 % . [facility] Erythrocyte distribution wid th Auto (RBC) [Ratio]Ordered By: Evi Gay on 11-21-2022 Erythrocyte distribution width (RBC) [Ratio] 13.8 % 12.0-14.8 [facility] Globulin Calc (S) [Mass/Vol] Ordered By: Shant Villegas on 11-21-2022 Globulin (S) [Mass/Vol] 3.4 g/dL [facility] Glucose [Mass/volume] in Ser um or PlasmaOrdered By: Shant Villegas on 11-21-2022 Glucose [Mass/Vol] 105 mg/dL 70-100 [facility] Comment on above: ADA recommended refe rence rangeRandom Glucose Reference Range is dependent on time and content of last meal. Glucose of more than 200 mg/dL in a nonstressed, ambulatory subject supports the diagnosis of Diabetes Mellitus. Hematocrit Auto (Bld) [Volum e fraction]Ordered By: Evi Gay on 11-21-2022 Hematocrit (Bld) [Volume fraction] 25.0 % 38.8-50.0 [facility] Hemoglobin [Mass/volume] in BloodOrdered By: Evi Gay on 11-21-2022 Hemoglobin (Bld) [Mass/Vol] 8.4 g/dL 13.0-17.0 [facility] Leukocytes [#/volume] correc wiliam for nucleated erythrocytes in Blood by Automated counOrdered By: Evi Gay on 11-21-2022 WBC corrected for nucl RBC Auto (Bld) [#/Vol] 7.9 10*3/uL 4.1-10.5 [facility] Lymphocytes Auto (Bld) [#/Vo l]Ordered By: Evi Gay on 11-21-2022 Lymphocytes (Bld) [#/Vol] 2.2 10*3/uL 1.00-4.8 [facility] Lymphocytes/100 WBC Auto (Bl d)Ordered By: Evi Deidra on 11-21-2022 Lymphocytes/100 WBC (Bld) 28.3 % . [facility] MCH Auto (RBC) [Entitic mass ]Ordered By: Evi Deidra on 11-21-2022 MCH (RBC) [Entitic mass] 30.2 pg 27.5-35.2 [facility] MCHC Auto (RBC) [Mass/Vol]Or dered By: Evi Deidra on 11-21-2022 MCHC (RBC) [Mass/Vol] 33.6 g/dL 32.5-35.6 [facility] MCV Auto (RBC) [Entitic vol] Ordered By: Evi Deidra on 11-21-2022 MCV (RBC) [Entitic vol] 89.8 fL 83.5-101 [facility] Magnesiumon 11-21-2022 Magnesium [Mass/Vol] 1.8 mg/dL Low 1.9-2.7 [facility] Comment on above: Result Comment: PERF ORMED BY:[facility] [place], [place] [phone] MEDICAL DIRECTORNATI LAUREN M.D. Performed By: #### C MP, MG ####[facility] [place] [address] [facility] Magnesium [Mass/volume] in S thang or PlasmaOrdered By: Shant Villegas on 11-21-2022 Magnesium [Mass/Vol] 1.8 mg/dL 1.9-2.7 [facility] Monocytes Auto (Bld) [#/Vol] Ordered By: Evi Deidra on 11-21-2022 Monocytes (Bld) [#/Vol] 0.8 10*3/uL 0.0-0.8 [facility] Monocytes/100 WBC Auto (Bld) Ordered By: Evi Deidra on 11-21-2022 Monocytes/100 WBC (Bld) 10.5 % . [facility] Neutrophils Auto (Bld) [#/Vo l]Ordered By: Evi Deidra on 11-21-2022 Neutrophils (Bld) [#/Vol] 4.4 10*3/uL 1.8-7.7 [facility] Neutrophils/100 WBC Auto (Bl d)Ordered By: Evi Deidra on 11-21-2022 Neutrophils/100 WBC (Bld) 56.1 % . [facility] No Panel InformationOrdered By: Shant Villegas on 11-21-2022 Estimated GFR (CKD-EPI) > 60.0 mL/Min [facility] Creatinine Clearance (Chem 231.99 [facility] Nucleated erythrocytes [Pres ence] in Blood by Automated countOrdered By: Evi Gay on 11-21-2022 Nucleated RBC Auto Ql (Bld) 0.2 /100{WBC} 0-0.5 [facility] Platelet mean volume Auto (B ld) [Entitic vol]Ordered By: Evi Gay on 11-21-2022 Platelet mean volume (Bld) [Entitic vol] 7.2 fL 6.6-10.1 [facility] Platelets Auto (Bld) [#/Vol] Ordered By: Evi Gay on 11-21-2022 Platelets (Bld) [#/Vol] 486 10*3/uL 150-450 [facility] Potassium [Moles/volume] in Serum or PlasmaOrdered By: Shant Villegas on 11-21-2022 Potassium [Moles/Vol] 3.7 mmol/L 3.5-5.1 [facility] Protein [Mass/volume] in Ser um or PlasmaOrdered By: Shant Villegas on 11-21-2022 Protein [Mass/Vol] 5.7 g/dL 6.4-8.9 [facility] RBC Auto (Bld) [#/Vol]Ordere d By: Evi Gay on 11-21-2022 RBC (Bld) [#/Vol] 2.78 10*6/uL 3.90-5.60 [facility] Serum or plasma albumin/glob ulin mass ratioOrdered By: Shant Villegas on 11-21-2022 Albumin/Globulin [Mass ratio] 0.7 {ratio} [facility] Serum or plasma anion gap de terminationOrdered By: Shant Villegas on 11-21-2022 Anion gap [Moles/Vol] 8.7 mmol/L 6.0-15.0 [facility] Sodium [Moles/volume] in Ser um or PlasmaOrdered By: Shant Villegas on 11-21-2022 Sodium [Moles/Vol] 141 mmol/L 136-145 [facility] Urea nitrogen [Mass/volume] in Serum or PlasmaOrdered By: Shant Villegas on 11-21-2022 Urea nitrogen [Mass/Vol] 11 mg/dL 7-25 [facility] WBC Auto (Bld) [#/Vol]Ordere d By: Evi Gay on 11-21-2022 WBC (Bld) [#/Vol] 7.9 10*3/uL 4.1-10.5 [facility] Complete Blood Count Auto Di ffon 11-20-2022 Basophils (Bld) [#/Vol] 0.1 10*3/uL Normal 0.0-0.2 [facility] Comment on above: Result Comment: PERF ORMED BY:[address] [place], [place] [phone] MEDICAL DIRECTORNATI LAUREN M.D. Performed By: #### C BC ####[address] Basophils/100 WBC (Bld) 1.0 % Normal . [facility] Comment on above: Performed By: #### C BC ####[place] [id number] [facility] Eosinophils (Bld) [#/Vol] 0.2 10*3/uL Normal 0.0-0.45 [facility] Comment on above: Performed By: #### C BC ####[place] [id number] [facility] Eosinophils/100 WBC (Bld) 2.2 % Normal . [facility] Comment on above: Performed By: #### C BC ####[id number] [facility] Erythrocyte distribution width (RBC) [Ratio] 13.7 % Normal 12.0-14.8 [facility] Comment on above: Performed By: #### C BC ####[place] [id number] [place] Hematocrit (Bld) [Volume fraction] 29.6 % Low 38.8-50.0 [facility] Comment on above: Performed By: #### C BC ####[address] Hemoglobin (Bld) [Mass/Vol] 9.8 g/dL Low 13.0-17.0 [facility] Comment on above: Performed By: #### C BC ####[address] Lymphocytes (Bld) [#/Vol] 1.9 10*3/uL Normal 1.00-4.8 [facility] Comment on above: Performed By: #### C BC ####[address] Lymphocytes/100 WBC (Bld) 18.5 % Normal . [facility] Comment on above: Performed By: #### C BC ####[address] MCH (RBC) [Entitic mass] 29.5 pg Normal 27.5-35.2 [facility] Comment on above: Performed By: #### C BC ####[address] MCV (RBC) [Entitic vol] 89.4 fL Normal 83.5-101 [facility] Comment on above: Performed By: #### C BC ####[address] Mean Corpuscular HGB Conc 33.0 g/dL Normal 32.5-35.6 [facility] Comment on above: Performed By: #### C BC ####[address] Monocytes (Bld) [#/Vol] 1.0 10*3/uL High 0.0-0.8 [facility] Comment on above: Performed By: #### C BC ####[address] Monocytes/100 WBC (Bld) 9.9 % Normal . [facility] Comment on above: Performed By: #### C BC ####[place] [id number] [facility] Neutrophils (Bld) [#/Vol] 6.9 10*3/uL Normal 1.8-7.7 [facility] Comment on above: Performed By: #### C BC ####[place] [id number] [facility] Neutrophils/100 WBC (Bld) 68.4 % Normal . [facility] Comment on above: Performed By: #### C BC ####[address] NRBC% 0.1 /100{WBC} Normal 0-0.5 [facility] Comment on above: Performed By: #### C BC ####[address] Platelet mean volume (Bld) [Entitic vol] 7.5 fL Normal 6.6-10.1 [facility] Comment on above: Performed By: #### C BC ####[place] [id number] [facility] Platelets (Bld) [#/Vol] 434 10*3/uL Normal 150-450 [facility] Comment on above: Performed By: #### C BC ####[place] [id number] [facility] RBC (Bld) [#/Vol] 3.31 10*6/uL Low 3.90-5.60 [facility] Comment on above: Performed By: #### C BC ####[place] [id number] [facility] WBC (Bld) [#/Vol] 10.0 10*3/uL Normal 4.1-10.5 [facility] Comment on above: Performed By: #### C BC ####[place] [id number] [facility] Comprehensive Metabolic Pane tiago 11-20-2022 Albumin [Mass/Vol] 2.4 g/dL Low 3.5-5.7 [facility] Comment on above: Performed By: #### C MP, MG ####[place] [id number] [facility] Albumin/Globulin [Mass ratio] 0.7 {ratio} Normal [facility] Comment on above: Performed By: #### C MP, MG ####[place] [id number] [facility] ALP [Catalytic activity/Vol] 118 U/L High 34-104 [facility] Comment on above: Performed By: #### C MP, MG ####[place] [id number] [facility] ALT [Catalytic activity/Vol] 47 U/L Normal 7-52 [facility] Comment on above: Performed By: #### C MP, MG ####[place] [id number] [facility] Anion gap [Moles/Vol] 10.6 mmol/L Normal 6.0-15.0 [facility] Comment on above: Performed By: #### C MP, MG ####[place] [id number] [facility] AST [Catalytic activity/Vol] 21 U/L Normal 13-39 [facility] Comment on above: Performed By: #### C MP, MG ####[place] [id number] [facility] Bilirubin [Mass/Vol] 0.6 mg/dL Normal 0.3-1.0 [facility] Comment on above: Performed By: #### C MP, MG ####[place] [id number] [facility] Calcium [Mass/Vol] 8.2 mg/dL Low 8.6-10.3 [facility] Comment on above: Performed By: #### C MP, MG ####[place] [id number] [facility] Chloride [Moles/Vol] 100 mmol/L Normal 98-107 [facility] Comment on above: Performed By: #### C MP, MG ####[place] [id number] CO2 [Moles/Vol] 31.8 mmol/L High 21.0-31.0 [facility] Comment on above: Performed By: #### C MP, MG ####[place] [address] Creatinine [Mass/Vol] 0.35 mg/dL Low 0.70-1.30 [facility] Comment on above: Performed By: #### C MP, MG ####[place] [id number] Creatinine Clr Calc Pharmacy 285.02 [facility] Comment on above: Performed By: #### C MP, MG ####[place] [id number] GFR/1.73 sq M.predicted MDRD (S/P/Bld) [Vol rate/Area] mL/min/{1.73_m2} [facility] Comment on above: Performed By: #### C MP, MG ####[address] Globulin (S) [Mass/Vol] 3.6 g/dL [facility] Comment on above: Performed By: #### C MP, MG ####[address] Glucose [Mass/Vol] 89 mg/dL Normal 70-100 [facility] Comment on above: Result Comment: [facility] Glucose Reference Range is dependent on time and content of last meal. Glucose of more than 200 mg/dL in a nonstressed, ambulatory subject supports the diagnosis of Diabetes Mellitus. ADA recommended reference range Performed By: #### C MP, MG ####[facility] Potassium [Moles/Vol] 3.4 mmol/L Low 3.5-5.1 [facility] Comment on above: Performed By: #### C MP, MG ####[place] [address] [place] [address] [facility] Protein [Mass/Vol] 6.0 g/dL Low 6.4-8.9 [facility] Comment on above: Performed By: #### C MP, MG ####[place] [address] [place] [address] [facility] Sodium [Moles/Vol] 139 mmol/L Normal 136-145 [facility] Comment on above: Performed By: #### C MP, MG ####[place] [id number] [facility] Urea nitrogen [Mass/Vol] 13 mg/dL Normal 7-25 [facility] Comment on above: Performed By: #### C MP, MG ####[address] [address] [facility] Magnesiumon 11-20-2022 Magnesium [Mass/Vol] 1.8 mg/dL Low 1.9-2.7 [facility] Comment on above: Result Comment: PERF ORMED BY:[address] [place], [place] [phone] MEDICAL DIRECTORNATI LAUREN M.D. Performed By: #### C MP, MG ####[place] [id number] [facility] XR chest 2V*on 11-20-2022 XR chest 2V* Normal [facility] Complete Blood Count Auto Di ffon 11-19-2022 Basophils (Bld) [#/Vol] 0.1 10*3/uL Normal 0.0-0.2 [facility] Comment on above: Result Comment: PERF ORMED BY:[place] [address] [place] [place], [place] [phone] MEDICAL DIRECTORNATI LAUREN M.D. Performed By: #### C BC ####[address] [address] [facility] Basophils/100 WBC (Bld) 1.2 % Normal . [facility] Comment on above: Performed By: #### C BC ####[place] [id number] [facility] Eosinophils (Bld) [#/Vol] 0.2 10*3/uL Normal 0.0-0.45 [facility] Comment on above: Performed By: #### C BC ####[place] [id number] [facility] Eosinophils/100 WBC (Bld) 2.0 % Normal . [facility] Comment on above: Performed By: #### C BC ####[place] [id number] [facility] Erythrocyte distribution width (RBC) [Ratio] 13.7 % Normal 12.0-14.8 [facility] Comment on above: Performed By: #### C BC ####[place] [id number] [facility] Hematocrit (Bld) [Volume fraction] 26.0 % Low 38.8-50.0 [facility] Comment on above: Performed By: #### C BC ####[place] [id number] [facility] Hemoglobin (Bld) [Mass/Vol] 8.6 g/dL Low 13.0-17.0 [facility] Comment on above: Performed By: #### C BC ####[place] [id number] [facility] Lymphocytes (Bld) [#/Vol] 2.0 10*3/uL Normal 1.00-4.8 [facility] Comment on above: Performed By: #### C BC ####[place] [id number] [facility] Lymphocytes/100 WBC (Bld) 16.7 % Normal . [facility] Comment on above: Performed By: #### C BC ####[place] [id number] [facility] MCH (RBC) [Entitic mass] 29.3 pg Normal 27.5-35.2 [facility] Comment on above: Performed By: #### C BC ####[address] [place] [address] [place] MCV (RBC) [Entitic vol] 89.0 fL Normal 83.5-101 [facility] Comment on above: Performed By: #### C BC ####[address] Mean Corpuscular HGB Conc 32.9 g/dL Normal 32.5-35.6 [facility] Comment on above: Performed By: #### C BC ####[address] Monocytes (Bld) [#/Vol] 1.1 10*3/uL High 0.0-0.8 [facility] Comment on above: Performed By: #### C BC ####[address] Monocytes/100 WBC (Bld) 9.6 % Normal . [facility] Comment on above: Performed By: #### C BC ####[address] Neutrophils (Bld) [#/Vol] 8.3 10*3/uL High 1.8-7.7 [facility] Comment on above: Performed By: #### C BC ####[address] Neutrophils/100 WBC (Bld) 70.5 % Normal . [facility] Comment on above: Performed By: #### C BC ####[address] NRBC% 0.1 /100{WBC} Normal 0-0.5 [facility] Comment on above: Performed By: #### C BC ####[address] Platelet mean volume (Bld) [Entitic vol] 7.6 fL Normal 6.6-10.1 [facility] Comment on above: Performed By: #### C BC ####[address] Platelets (Bld) [#/Vol] 451 10*3/uL High 150-450 [facility] Comment on above: Performed By: #### C BC ####[place] [id number] [facility] RBC (Bld) [#/Vol] 2.92 10*6/uL Low 3.90-5.60 [facility] Comment on above: Performed By: #### C BC ####[place] [id number] [facility] WBC (Bld) [#/Vol] 11.8 10*3/uL High 4.1-10.5 [facility] Comment on above: Performed By: #### C BC ####[place] [id number] [facility] Comprehensive Metabolic Pane tiago 11-19-2022 Albumin [Mass/Vol] 2.3 g/dL Low 3.5-5.7 [facility] Comment on above: Performed By: #### M Royal, CMP ####[place] [id number] [facility] Albumin/Globulin [Mass ratio] 0.7 {ratio} Normal [facility] Comment on above: Performed By: #### Jayesh Paige, CMP ####[place] [id number] [facility] ALP [Catalytic activity/Vol] 139 U/L High 34-104 [facility] Comment on above: Performed By: #### Jayesh Paige, CMP ####[place] [id number] [facility] ALT [Catalytic activity/Vol] 59 U/L High 7-52 [facility] Comment on above: Performed By: #### M Royal, CMP ####[place] [id number] [facility] Anion gap [Moles/Vol] 9.2 mmol/L Normal 6.0-15.0 [facility] Comment on above: Performed By: #### M Royal, CMP ####[place] [id number] [facility] AST [Catalytic activity/Vol] 28 U/L Normal 13-39 [facility] Comment on above: Performed By: #### Jayesh Paige, CMP ####[place] [id number] [facility] Bilirubin [Mass/Vol] 0.7 mg/dL Normal 0.3-1.0 [facility] Comment on above: Performed By: #### Jayesh Paige, CMP ####[place] [id number] [facility] Calcium [Mass/Vol] 8.0 mg/dL Low 8.6-10.3 [facility] Comment on above: Performed By: #### Jayesh Paige, CMP ####[place] [id number] [facility] Chloride [Moles/Vol] 99 mmol/L Normal 98-107 [facility] Comment on above: Performed By: #### Jayesh Paige, CMP ####[place] [id number] [facility] CO2 [Moles/Vol] 34.0 mmol/L High 21.0-31.0 [facility] Comment on above: Performed By: #### Jayesh Paige, CMP ####[place] [id number] [facility] Creatinine [Mass/Vol] 0.38 mg/dL Low 0.70-1.30 [facility] Comment on above: Performed By: #### Jayesh Paige, CMP ####[place] [id number] [facility] Creatinine Clr Calc Pharmacy 284.27 [facility] Comment on above: Performed By: #### Jayesh Paige, CMP ####[place] [id number] [facility] GFR/1.73 sq M.predicted MDRD (S/P/Bld) [Vol rate/Area] mL/min/{1.73_m2} [facility] Comment on above: Performed By: #### Jayesh Paige, CMP ####[place] [id number] [facility] Globulin (S) [Mass/Vol] 3.5 g/dL Normal [facility] Comment on above: Performed By: #### M G, CMP ####[place] [address] [place] [address] [facility] Glucose [Mass/Vol] 92 mg/dL Normal 70-100 [facility] Comment on above: Result Comment: [place] Glucose Reference Range is dependent on time and content of last meal. Glucose of more than 200 mg/dL in a nonstressed, ambulatory subject supports the diagnosis of Diabetes Mellitus. ADA recommended reference range Performed By: #### M Royal, CMP ####[place] [address] [place] [address] [facility] Potassium [Moles/Vol] 3.2 mmol/L Low 3.5-5.1 [facility] Comment on above: Performed By: #### Jyaesh Paige, CMP ####[place] [address] [place] [address] [facility] Protein [Mass/Vol] 5.8 g/dL Low 6.4-8.9 [facility] Comment on above: Performed By: #### Jayesh Paige, CMP ####[address] [address] [facility] Sodium [Moles/Vol] 139 mmol/L Normal 136-145 [facility] Comment on above: Performed By: #### Jayesh Paige, CMP ####[place] [address] [place] [address] [facility] Urea nitrogen [Mass/Vol] 11 mg/dL Normal 7-25 [facility] Comment on above: Performed By: #### Jayesh G, CMP ####[place] [address] [place] [address] [facility] Magnesiumon 11-19-2022 Magnesium [Mass/Vol] 1.8 mg/dL Low 1.9-2.7 [facility] Comment on above: Result Comment: PERF ORMED BY:[place] [address] [place], [place] [phone] MEDICAL DIRECTORNATI LAUREN M.D. Performed By: #### Jayesh Paige, CMP ####[facility] [place] [address] [facility] Arterial Blood Gason 023 ABG Base Excess 7.9 mmol/L High -3.0-3.0 [facility] Comment on above: Performed By: #### A BG ####Point of Care testing, ABG Frac Inspired O2 40 % [facility] Comment on above: Performed By: #### A BG ####Point of Care testing, ABG Oxygen Content 7.1 mmol/L Normal 6.6-9.7 [facility] Comment on above: Performed By: #### A BG ####Point of Care testing, ABG Oxygen Saturation 95.6 % Normal 95.0-100.0 [facility] Comment on above: Performed By: #### A BG ####Point of Care testing, ABG PCO2 43.5 mm[Hg] Normal 35.0-45.0 [facility] Comment on above: Performed By: #### A BG ####Point of Care testing, ABG PEEP 6 [facility] Comment on above: Performed By: #### A BG ####Point of Care testing, ABG PH 7.49 High 7.35-7.45 [facility] Comment on above: Performed By: #### A BG ####Point of Care testing, ABG PO2 78.1 mm[Hg] Low 80.0-100.0 [facility] Comment on above: Performed By: #### A BG ####Point of Care testing, ABG TV 500 mL [facility] Comment on above: Performed By: #### A BG ####Point of Care testing, CO2 [Moles/Vol] 33.5 mmol/L High 23.0-27.0 [facility] Comment on above: Performed By: #### A BG ####Point of Care testing, HCO3 (Bld) [Moles/Vol] 32.2 mmol/L High 23.0-29.0 [facility] Comment on above: Performed By: #### A BG ####Point of Care testing, Respiratory Critical [facility] Comment on above: Result Comment: Crit ical Value called on: 11/18/2022 at 05:43PERFORMED BY:[place] [address] [address] [place], [place] [phone] MEDICAL DIRECTORNATI LAUREN M.D. Performed By: #### A BG ####Point of Care testing, Set Respiratory Rate 20 [facility] Comment on above: Performed By: #### A BG ####Point of Care testing, VBG Draw Site Right Radial [facility] Comment on above: Performed By: #### A BG ####Point of Care testing, Ventilator Mode AC [facility] Comment on above: Performed By: #### A BG ####Point of Care testing, Comprehensive Metabolic Pane tiago 11-18-2022 Albumin [Mass/Vol] 2.3 g/dL Low 3.5-5.7 [facility] Comment on above: Performed By: #### T RIG, SCAN CBC, MG, CMP ####[facility] [id number] [place] [id number] [facility] Albumin/Globulin [Mass ratio] 0.6 {ratio} [facility] Comment on above: Performed By: #### T RIG, SCAN CBC, MG, CMP ####[facility] [id number] [place] [address] [facility] ALP [Catalytic activity/Vol] 169 U/L High 34-104 [facility] Comment on above: Performed By: #### T RIG, SCAN CBC, MG, CMP ####[facility] [address] [place] [address] [facility] ALT [Catalytic activity/Vol] 81 U/L High 7-52 [facility] Comment on above: Performed By: #### T RIG, SCAN CBC, MG, CMP ####[facility] [id number] [place] [address] [facility] Anion gap [Moles/Vol] 8.2 mmol/L Normal 6.0-15.0 [facility] Comment on above: Performed By: #### T RIG, SCAN CBC, MG, CMP ####[facility] [id number] [place] [address] [facility] AST [Catalytic activity/Vol] 53 U/L High 13-39 [facility] Comment on above: Performed By: #### T RIG, SCAN CBC, MG, CMP ####[facility] [id number] [place] [address] [facility] Bilirubin [Mass/Vol] 0.5 mg/dL Normal 0.3-1.0 [facility] Comment on above: Performed By: #### T RIG, SCAN CBC, MG, CMP ####[facility] [id number] [place] [address] [facility] Calcium [Mass/Vol] 7.9 mg/dL Low 8.6-10.3 [facility] Comment on above: Performed By: #### T RIG, SCAN CBC, MG, CMP ####[place] [id number] [facility] Chloride [Moles/Vol] 95 mmol/L Low 98-107 [facility] Comment on above: Performed By: #### T RIG, SCAN CBC, MG, CMP ####[place] [address] [place] [address] [facility] CO2 [Moles/Vol] 34.3 mmol/L High 21.0-31.0 [facility] Comment on above: Performed By: #### T RIG, SCAN CBC, MG, CMP ####[place] [id number] [facility] Creatinine [Mass/Vol] 0.39 mg/dL Low 0.70-1.30 [facility] Comment on above: Performed By: #### T RIG, SCAN CBC, MG, CMP ####[place] [address] [place] [address] [facility] Creatinine Clr Calc Pharmacy 276.98 Normal [facility] Comment on above: Performed By: #### T RIG, SCAN CBC, MG, CMP ####[facility] [id number] [place] [address] [facility] GFR/1.73 sq M.predicted MDRD (S/P/Bld) [Vol rate/Area] mL/min/{1.73_m2} Normal [facility] Comment on above: Performed By: #### T RIG, SCAN CBC, MG, CMP ####[place] [id number] [facility] Globulin (S) [Mass/Vol] 3.6 g/dL Normal [facility] Comment on above: Performed By: #### T RIG, SCAN CBC, MG, CMP ####[address] Glucose [Mass/Vol] 115 mg/dL High 70-100 [facility] Comment on above: Result Comment: [facility] Glucose Reference Range is dependent on time and content of last meal. Glucose of more than 200 mg/dL in a nonstressed, ambulatory subject supports the diagnosis of Diabetes Mellitus. ADA recommended reference range Performed By: #### T RIG, SCAN CBC, MG, CMP ####[address] Potassium [Moles/Vol] 3.5 mmol/L Normal 3.5-5.1 [facility] Comment on above: Performed By: #### T RIG, SCAN CBC, MG, CMP ####[place] [id number] [facility] Protein [Mass/Vol] 5.9 g/dL Low 6.4-8.9 [facility] Comment on above: Performed By: #### T RIG, SCAN CBC, MG, CMP ####[place] [id number] [facility] Sodium [Moles/Vol] 134 mmol/L Low 136-145 [facility] Comment on above: Performed By: #### T RIG, SCAN CBC, MG, CMP ####[place] [id number] [facility] Urea nitrogen [Mass/Vol] 15 mg/dL Normal 7-25 [facility] Comment on above: Performed By: #### T RIG, SCAN CBC, MG, CMP ####[place] [id number] [place] Glucose Glucometer (BldC) [M ass/Vol]Ordered By: Shant Villegas on 11-18-2022 Glucose [Mass/Vol] 120 mg/dL [facility] Comment on above: Random Glucose Refer ence Range is dependent on time and content of last meal. Glucose of more than 200 mg/dL in a nonstressed, ambulatory subject supports the diagnosis of Diabetes Mellitus. Glucose Poct Glucometerson 0 11-18-2022 Glucose [Mass/Vol] 120 mg/dL Normal [facility] Comment on above: Result Comment: [place] [facility] Glucose Reference Range is dependent on time and content of last meal. Glucose of more than 200 mg/dL in a nonstressed, ambulatory subject supports the diagnosis of Diabetes Mellitus.PERFORMED BY:[facility] [place], [place] [phone] MEDICAL DIRECTORNATI LAUREN M.D. Performed By: #### G LULS ####Point of Care testing, Hypochromia LM Ql (Bld)Order ed By: Evi Gay on 11-18-2022 Hypochromia Ql (Bld) Moderate [facility] Laboratory - Chemistry and C hemistry - challengeOrdered By: Shant Villegas on 11-18-2022 CO2 [Moles/Vol] 33.5 mmol/L 23.0-27.0 [facility] HCO3 (Bld) [Moles/Vol] 32.2 mmol/L 23.0-29.0 [facility] Magnesiumon 11-18-2022 Magnesium [Mass/Vol] 1.9 mg/dL Normal 1.9-2.7 [facility] Comment on above: Performed By: #### T RIG, SCAN CBC, MG, CMP ####[facility] [id number] [place] [address] [facility] No Panel InformationOrdered By: Shant Villegas on 11-18-2022 Arterial Blood Base Excess 7.9 mmol/L -3.0-3.0 [facility] Arterial Blood Oxygen Content 7.1 mmol/L 6.6-9.7 [facility] Arterial Blood Oxygen Saturation 95.6 % 95.0-100.0 [facility] Arterial Blood Partial Pressure CO2 43.5 mm[Hg] 35.0-45.0 [facility] Arterial Blood Partial Pressure O2 78.1 mm[Hg] 80.0-100.0 [facility] Arterial Blood pH 7.49 7.35-7.45 [facility] Blood Gas Critical Value See comment [facility] Comment on above: Critical Value abdi d on: 11/18/2022 at 05:43 Blood Gas PEEP 6 cmH2O [facility] Blood Gas Sample Site Right radial F [facility] Blood Gas Set Respiration Rate 20 [facility] Blood Gas Tidal Volume 500 mL Fi [facility] Blood Gas Ventilator Mode Ac [facility] FiO2 40 % [facility] Platelet adequacy [Presence] in Blood by Light microscopyOrdered By: Evi Gay on 11-18-2022 Platelets LM Ql (Bld) Normal Normal [facility] Platelet morphology finding [Identifier] in BloodOrdered By: Evi Gay on 11-18-2022 Platelet morphology finding Nom (Bld) Normal Normal [facility] Poikilocytosis [Presence] in Blood by Light microscopyOrdered By: Evi Gay on 11-18-2022 Poikilocytosis LM Ql (Bld) Slight [facility] Polychromasia [Presence] in Blood by Light microscopyOrdered By: Evi Gay on 11-18-2022 Polychromasia LM Ql (Bld) Moderate [facility] RBC morphologyOrdered By: Antoni Gay on 11-18-2022 RBC morphology finding Nom (Bld) N/A [facility] Scan and CBCon 11-18-2022 Basophils (Bld) [#/Vol] 0.1 10*3/uL Normal 0.0-0.2 [facility] Comment on above: Performed By: #### T RIG, SCAN CBC, MG, CMP ####[facility] [id number] Basophils/100 WBC (Bld) 0.7 % Normal . [facility] Comment on above: Performed By: #### T RIG, SCAN CBC, MG, CMP ####[facility] [id number] Eosinophils (Bld) [#/Vol] 0.2 10*3/uL Normal 0.0-0.45 [facility] Comment on above: Performed By: #### T RIG, SCAN CBC, MG, CMP ####[address] Eosinophils/100 WBC (Bld) 1.6 % Normal . [facility] Comment on above: Performed By: #### T RIG, SCAN CBC, MG, CMP ####[address] Erythrocyte distribution width (RBC) [Ratio] 13.8 % Normal 12.0-14.8 [facility] Comment on above: Performed By: #### T RIG, SCAN CBC, MG, CMP ####[address] Hematocrit (Bld) [Volume fraction] 25.8 % Low 38.8-50.0 [facility] Comment on above: Performed By: #### T RIG, SCAN CBC, MG, CMP ####[address] Hemoglobin (Bld) [Mass/Vol] 8.6 g/dL Low 13.0-17.0 [facility] [facility] Comment on above: Performed By: #### T RIG, SCAN CBC, MG, CMP ####[address] Hypochromasia Moderate Normal [facility] Comment on above: Performed By: #### T RIG, SCAN CBC, MG, CMP ####[address] Lymphocytes (Bld) [#/Vol] 1.6 10*3/uL Normal 1.00-4.8 [facility] Comment on above: Performed By: #### T RIG, SCAN CBC, MG, CMP ####[address] Lymphocytes/100 WBC (Bld) 11.6 % Normal . [facility] Comment on above: Performed By: #### T RIG, SCAN CBC, MG, CMP ####[address] MCH (RBC) [Entitic mass] 29.6 pg Normal 27.5-35.2 [facility] Comment on above: Performed By: #### T RIG, SCAN CBC, MG, CMP ####[address] MCV (RBC) [Entitic vol] 89.0 fL Normal 83.5-101 [facility] Comment on above: Performed By: #### T RIG, SCAN CBC, MG, CMP ####[address] Mean Corpuscular HGB Conc 33.3 g/dL Normal 32.5-35.6 [facility] Comment on above: Performed By: #### T RIG, SCAN CBC, MG, CMP ####[address] Monocytes (Bld) [#/Vol] 1.7 10*3/uL High 0.0-0.8 [facility] Comment on above: Performed By: #### T RIG, SCAN CBC, MG, CMP ####[address] Monocytes/100 WBC (Bld) 12.5 % Normal . [facility] Comment on above: Performed By: #### T RIG, SCAN CBC, MG, CMP ####[address] Neutrophils (Bld) [#/Vol] 10.1 10*3/uL High 1.8-7.7 [facility] Comment on above: Performed By: #### T RIG, SCAN CBC, MG, CMP ####[address] Neutrophils/100 WBC (Bld) 73.6 % Normal . [facility] Comment on above: Performed By: #### T RIG, SCAN CBC, MG, CMP ####[address] NRBC% 0.1 /100{WBC} Normal 0-0.5 [facility] Comment on above: Performed By: #### T RIG, SCAN CBC, MG, CMP ####[address] Platelet Estimate Normal Normal Normal [facility] Comment on above: Performed By: #### T RIG, SCAN CBC, MG, CMP ####[address] Platelet mean volume (Bld) [Entitic vol] 7.7 fL Normal 6.6-10.1 [facility] Comment on above: Performed By: #### T RIG, SCAN CBC, MG, CMP ####[address] Platelet Morphology Normal Normal Normal [facility] Comment on above: Result Comment: PERF ORMED BY:[address] [place], [place] [phone] MEDICAL DIRECTORNATI LAUREN M.D. Performed By: #### T RIG, SCAN CBC, MG, CMP ####[address] Platelets (Bld) [#/Vol] 418 10*3/uL Normal 150-450 [facility] Comment on above: Performed By: #### T RIG, SCAN CBC, MG, CMP ####[address] Poikilocytosis Slight Normal [facility] Comment on above: Performed By: #### T RIG, SCAN CBC, MG, CMP ####[address] Polychromasia Moderate Normal [facility] Comment on above: Performed By: #### T RIG, SCAN CBC, MG, CMP ####[address] RBC (Bld) [#/Vol] 2.90 10*6/uL Low 3.90-5.60 [facility] Comment on above: Performed By: #### T RIG, SCAN CBC, MG, CMP ####[address] [place] [address] [facility] WBC (Bld) [#/Vol] 13.7 10*3/uL High 4.1-10.5 [facility] Comment on above: Performed By: #### T RIG, SCAN CBC, MG, CMP ####[id number] [place] [id number] [facility] Triglyceride [Mass/volume] i n Serum or PlasmaOrdered By: Evi Gay on 11-18-2022 Triglyceride [Mass/Vol] 146 mg/dL 0-149 [facility] Comment on above: TRIG ATP III CLASSIF ICATIONTRIG less than 150 mg/dL NormalTRIG 150-199 mg/dL Borderline highTRIG 200-500 mg/dL High TRIG greater than 500 mg/dL Very highStandard traceable to the Center for Disease Conrtrol and Prevention (CDC) test method. Triglycerideson 11-18-2022 Triglyceride [Mass/Vol] 146 mg/dL Normal 0-149 [facility] Comment on above: Result Comment: TRIG ATP III CLASSIFICATION TRIG less than 150 mg/dL Normal TRIG 150-199 mg/dL Borderline high TRIG 200-500 mg/dL High TRIG greater than 500 mg/dL Very high Standard traceable to the Center for Disease Conrtrol and Prevention (CDC) test method.PERFORMED BY:[address] [place], [place] [phone] MEDICAL DIRECTORNATI LAUREN M.D. Performed By: #### T RIG, SCAN CBC, MG, CMP ####[address] [place] [address] [facility] XR chest 1V portableon 11-18 XR chest 1V portable Normal [facility] Aerobic Cultureon 11-17-2022 Aerobic Culture Normal [facility] Comment on above: Performed By: #### G S, AERC ####[address] [place] [address] [facility] Amylaseon 11-17-2022 Amylase [Catalytic activity/Vol] 16 U/L Low 29-103 [facility] Comment on above: Order Comment: Comme nt please run off blood drawn this morning Performed By: #### L IPASE, CATRACHITO, HEPATIC ####[facility] [address] [place] [address] [facility] Amylase [Enzymatic activity/ volume] in Serum or PlasmaOrdered By: Evi Gay on 11-17-2022 Amylase [Catalytic activity/Vol] 16 U/L 29-103 [facility] Arterial Blood Gason 023 ABG Base Excess 9.9 mmol/L High -3.0-3.0 [facility] Comment on above: Performed By: #### A BG ####Point of Care testing, ABG Frac Inspired O2 30 % [facility] Comment on above: Performed By: #### A BG ####Point of Care testing, ABG Oxygen Content 5.9 mmol/L Low 6.6-9.7 [facility] Comment on above: Performed By: #### A BG ####Point of Care testing, ABG Oxygen Saturation 89.2 % Low 95.0-100.0 [facility] Comment on above: Performed By: #### A BG ####Point of Care testing, ABG PCO2 42.2 mm[Hg] Normal 35.0-45.0 [facility] Comment on above: Performed By: #### A BG ####Point of Care testing, ABG PEEP 10 [facility] Comment on above: Performed By: #### A BG ####Point of Care testing, ABG PH 7.52 High 7.35-7.45 [facility] Comment on above: Performed By: #### A BG ####Point of Care testing, ABG PO2 54.5 mm[Hg] Low 80.0-100.0 [facility] Comment on above: Performed By: #### A BG ####Point of Care testing, ABG TV 500 mL [facility] Comment on above: Performed By: #### A BG ####Point of Care testing, CO2 [Moles/Vol] 35.0 mmol/L High 23.0-27.0 [facility] Comment on above: Performed By: #### A BG ####Point of Care testing, HCO3 (Bld) [Moles/Vol] 33.7 mmol/L High 23.0-29.0 [facility] Comment on above: Performed By: #### A BG ####Point of Care testing, Respiratory Critical [facility] Comment on above: Result Comment: Crit ical Value called on: 11/17/2022 at 04:38PERFORMED BY:[facility] [place] [phone] MEDICAL DIRECTORNATI LAUREN M.D. Performed By: #### A BG ####Point of Care testing, Set Respiratory Rate 20 [facility] Comment on above: Performed By: #### A BG ####Point of Care testing, VBG Draw Site Right Radial [facility] Comment on above: Performed By: #### A BG ####Point of Care testing, Ventilator Mode AC [facility] Comment on above: Performed By: #### A BG ####Point of Care testing, Bacteria identified Aer cx N om (Unsp spec)Ordered By: Sanjay Holt on 11-17-2022 Aerobic Culture [facility] Bacterial blood cultureOrder ed By: Sanjay Holt on 11-17-2022 Bacteria identified Cx Nom (Bld) NO GROWTH 5 DAYS [facility] Basic Metabolic Panelon 05 Anion gap [Moles/Vol] 9.3 mmol/L Normal 6.0-15.0 [facility] Comment on above: Performed By: #### B MP, CBCNO ####[facility] [address] [place] [address] [place] Calcium [Mass/Vol] 7.8 mg/dL Low 8.6-10.3 [facility] Comment on above: Performed By: #### B MP, CBCNO ####[facility] [address] [place] [address] [place] Chloride [Moles/Vol] 93 mmol/L Low 98-107 [facility] Comment on above: Performed By: #### B YOSEPH, CBCNO ####[facility] [address] [place] [address] [facility] CO2 [Moles/Vol] 33.7 mmol/L High 21.0-31.0 [facility] Comment on above: Performed By: #### B YOSEPH, CBCNO ####[facility] [place] [address] [facility] Creatinine [Mass/Vol] 0.50 mg/dL Low 0.70-1.30 [facility] Comment on above: Performed By: #### B YOSEPH, CBCNO ####[address] [place] [address] [place] Creatinine Clr Calc Pharmacy 217.84 [facility] Comment on above: Result Comment: PERF ORMED BY:[address] [place], [place] [phone] MEDICAL DIRECTORNATI LAUREN M.D. Performed By: #### B YOSEPH, CBCNO ####[address] [place] [address] [facility] GFR/1.73 sq M.predicted MDRD (S/P/Bld) [Vol rate/Area] mL/min/{1.73_m2} [facility] Comment on above: Performed By: #### B YOSEPH, CBCNO ####[address] [place] [address] [facility] Glucose [Mass/Vol] 102 mg/dL High 70-100 [facility] Comment on above: Result Comment: [place] Glucose Reference Range is dependent on time and content of last meal. Glucose of more than 200 mg/dL in a nonstressed, ambulatory subject supports the diagnosis of Diabetes Mellitus. ADA recommended reference range Performed By: #### B YOSEPH, CBCNO ####[facility] [address] [place] [address] [facility] Potassium [Moles/Vol] 4.0 mmol/L Normal 3.5-5.1 [facility] Comment on above: Performed By: #### B YOSEPH, CBCNO ####[facility] [place] [id number] [facility] Sodium [Moles/Vol] 132 mmol/L Low 136-145 [facility] Comment on above: Performed By: #### B YOSEPH CBCNO ####[facility] [place] [id number] [facility] Urea nitrogen [Mass/Vol] 23 mg/dL Normal 7-25 [facility] Comment on above: Performed By: #### B YOSEPH CBCNO ####[facility] [place] [id number] [facility] Bilirubin.direct [Mass/volum e] in Serum or PlasmaOrdered By: Evi Gay on 11-17-2022 Bilirubin.direct [Mass/Vol] 0.30 mg/dL 0.03-0.18 [facility] Blood Cultureon 11-17-2022 Bacteria identified Cx Nom (Bld) Comment suctioned NO GROWTH 5 DAYS PERFORMED BY: [facility] [address] [place] [address] PATHOLOGIST WASHER CARCASS NATI LAUREN M.D. [facility] Comment on above: Performed By: #### C UBLD ####[place] [id number] [facility] Creatine Kinaseon 11-17-2022 CK [Catalytic activity/Vol] 70 U/L Normal [facility] Comment on above: Order Comment: Comme nt has CVC LINE DRAW Performed By: #### H S TROP, CK ####[place] [id number] [facility] Creatine kinase [Enzymatic a ctivity/volume] in Serum or PlasmaOrdered By: Evi Gay on 11-17-2022 CK [Catalytic activity/Vol] 70 U/L 30- [facility] ECG 12 lead ECGon 11-17-2022 ECG 12 lead ECG Normal [facility] ECG 12 lead ECG Normal [facility] ECH echo transthoracicon ECH echo transthoracic Normal [facility] Glucose Poct Glucometerson 0 11-17-2022 Commemt1 Glu2: Cleaned Meter Normal [facility] Comment on above: Result Comment: PERF ORMED BY:[facility] [place], [place] [phone] MEDICAL DIRECTORNATI LAUREN M.D. Performed By: #### G LUBETY ####Point of Care testing, Glucose [Mass/Vol] 106 mg/dL Normal [facility] Comment on above: Result Comment: [facility] Glucose Reference Range is dependent on time [...] Blood Cells Rare Epithelial Cells PERFORMED BY: [facility] [address] [place] [address] PATHOLOGIST WASHER CARCASS NATI LAUREN M.D. Normal [facility] Comment on above: Performed By: #### G S, AERC ####[address] [address] [facility] Gram stain for investigation of transfusion reactionOrdered By: Sanjay Holt on 11-17-2022 Microscopic observation Gram stain Nom (Unsp spec) [facility] Hemogram CBC Without Diffon 11-17-2022 Erythrocyte distribution width (RBC) [Ratio] 13.7 % Normal 12.0-14.8 [facility] Comment on above: Performed By: #### B MP, CBCNO ####[facility] [address] [place] [address] [place] Hematocrit (Bld) [Volume fraction] 28.0 % Low 38.8-50.0 [facility] Comment on above: Performed By: #### B MP, CBCNO ####[facility] [address] [place] [address] [facility] Hemoglobin (Bld) [Mass/Vol] 9.1 g/dL Low 13.0-17.0 [facility] Comment on above: Performed By: #### B MP, CBCNO ####[address] [place] [address] [facility] MCH (RBC) [Entitic mass] 29.1 pg Normal 27.5-35.2 [facility] Comment on above: Performed By: #### B YOSEPH CBCNO ####[address] [place] [address] [facility] MCV (RBC) [Entitic vol] 89.7 fL Normal 83.5-101 [facility] Comment on above: Performed By: #### B YOSEPH CBCNO ####[address] [place] [address] [facility] Mean Corpuscular HGB Conc 32.4 g/dL Low 32.5-35.6 [facility] Comment on above: Performed By: #### B YOSEPH CBCNO ####[id number] [facility] Platelet mean volume (Bld) [Entitic vol] 7.7 fL Normal 6.6-10.1 [facility] Comment on above: Result Comment: PERF ORMED BY:[address] [place], [place] [phone] MEDICAL DIRECTORNATI LAUREN M.D. Performed By: #### B YOSEPH CBCNO ####[address] [address] [facility] Platelets (Bld) [#/Vol] 423 10*3/uL Normal 150-450 [facility] Comment on above: Performed By: #### B YOSEPH CBCNO ####[place] [id number] [facility] RBC (Bld) [#/Vol] 3.12 10*6/uL Low 3.90-5.60 [facility] Comment on above: Performed By: #### B YOSEPH CBCNO ####[id number] [facility] WBC (Bld) [#/Vol] 20.5 10*3/uL High 4.1-10.5 [facility] Comment on above: Performed By: #### B YOSEPH CBCNO ####[facility] [place] [address] [facility] Hepatic Panelon 11-17-2022 Albumin [Mass/Vol] 2.4 g/dL Low 3.5-5.7 [facility] Comment on above: Order Comment: Comme nt please run off blood drawn this morning Performed By: #### L IPASE, CATRACHITO, HEPATIC ####[facility] [place] [address] [facility] Albumin/Globulin [Mass ratio] 0.7 {ratio} Normal [facility] Comment on above: Order Comment: Comme nt please run off blood drawn this morning Performed By: #### L IPASE, CATRACHITO, HEPATIC ####[address] [place] [address] [facility] ALP [Catalytic activity/Vol] 170 U/L High 34-104 [facility] Comment on above: Order Comment: Comme nt please run off blood drawn this morning Performed By: #### L IPASE, CATRACHITO, HEPATIC ####[address] [place] [address] [facility] ALT [Catalytic activity/Vol] 64 U/L High 7-52 [facility] Comment on above: Order Comment: Comme nt please run off blood drawn this morning Performed By: #### L IPASE, CATRACHITO, HEPATIC ####[facility] [place] [address] [facility] AST [Catalytic activity/Vol] 64 U/L High 13-39 [facility] Comment on above: Order Comment: Comme nt please run off blood drawn this morning Performed By: #### L IPASE, CATRACHITO, HEPATIC ####[address] [place] [address] [facility] Bilirubin [Mass/Vol] 0.6 mg/dL Normal 0.3-1.0 [facility] Comment on above: Order Comment: Comme nt please run off blood drawn this morning Performed By: #### L IPASE, CATRACHITO, HEPATIC ####[address] [place] [address] [place] Bilirubin,Indirect 0.3 mg/dL Normal [facility] Comment on above: Order Comment: Comme nt please run off blood drawn this morning Performed By: #### L IPASE, CATRACHITO, HEPATIC ####[place] [id number] [facility] Bilirubin.indirect [Mass/Vol] 0.30 mg/dL High 0.03-0.18 [facility] Comment on above: Order Comment: Comme nt please run off blood drawn this morning Performed By: #### L IPASE, CATRACHITO, HEPATIC ####[place] [id number] [facility] Globulin (S) [Mass/Vol] 3.6 g/dL Normal [facility] Comment on above: Order Comment: Comme nt please run off blood drawn this morning Performed By: #### L IPASE, CATRACHITO, HEPATIC ####[place] [id number] [facility] Protein [Mass/Vol] 6.0 g/dL Low 6.4-8.9 [facility] Comment on above: Order Comment: Comme nt please run off blood drawn this morning Performed By: #### L IPASE, CATRACHITO, HEPATIC ####[place] [id number] [facility] Lipaseon 11-17-2022 Lipase [Catalytic activity/Vol] 12.0 U/L Normal 11.0-82.0 [facility] Comment on above: Order Comment: Comme nt please run off blood drawn this morning Result Comment: PERF ORMED BY:[address] [place], [place] [phone] MEDICAL DIRECTORNATI LAUREN M.D. Performed By: #### L IPASE, CATRACHITO, HEPATIC ####[place] [id number] [facility] Lipase [Enzymatic activity/v olume] in Serum or PlasmaOrdered By: Evi Gay on 11-17-2022 Lipase [Catalytic activity/Vol] 12.0 U/L 11.0-82.0 [facility] Magnesiumon 11-17-2022 Magnesium [Mass/Vol] 1.9 mg/dL Normal 1.9-2.7 [facility] Comment on above: Result Comment: PERF ORMED BY:[address] [place], [place] [id number] MEDICAL DIRECTORNATI LAUREN M.D. Performed By: #### M G ####[address] [address] [facility] No Panel InformationOrdered By: Shant Villegas on 11-17-2022 Bedside Glucose Comment Glu2: cleaned meter [facility] Serum or plasma non-glucuron idated bilirubin measurement (mass/volume)Ordered By: Evi Gay on 11-17-2022 Bilirubin.indirect [Mass/Vol] 0.3 mg/dL [facility] Thyroid Stimulating Hormoneo n 11-17-2022 TSH Qn 9.27 m[IU]/L High 0.45-5.33 [facility] Comment on above: Order Comment: Comme nt please run off blood drawn today Result Comment: PERF ORMED BY:[address] [place], [place] [phone] MEDICAL DIRECTORNATI LAUREN M.D. Performed By: #### T SH3 ####[address] [address] [facility] Thyrotropin [Units/volume] i n Serum or PlasmaOrdered By: Evi Gay on 11-17-2022 TSH Qn 9.27 m[IU]/L 0.45-5.33 [facility] Troponin I High Sensitivityo n 11-17-2022 Troponin I High Sensitivity 24.1 pg/mL High 0.0-20.0 [facility] Comment on above: Order Comment: Comme nt has CVC LINE DRAW Result Comment: PERF ORMED BY:[address] [place] [place], [place] [phone] MEDICAL ALEKSANDAR LAUREN M.D. Performed By: #### H S TROP, CK ####[address] [address] [facility] Troponin I.cardiac [Mass/vol ume] in Serum or Plasma by Detection limit <= 0.01 ng/Ordered By: Evi Gay on 11-17-2022 Troponin I.cardiac DL <= 0.01 ng/mL [Mass/Vol] 24.1 pg/mL 0.0-20.0 [facility] XR chest 1V portableon 11-17 XR chest 1V portable Normal [facility] Arterial Blood [address] 023 ABG Base Excess 10.9 mmol/L High -3.0-3.0 [facility] Comment on above: Performed By: #### A BG ####Point of Care testing, ABG Frac Inspired O2 50 % [facility] Comment on above: Performed By: #### A BG ####Point of Care testing, ABG Oxygen Content 6.1 mmol/L Low 6.6-9.7 [facility] Comment on above: Performed By: #### A BG ####Point of Care testing, ABG Oxygen Saturation 94.7 % Low 95.0-100.0 [facility] Comment on above: Performed By: #### A BG ####Point of Care testing, ABG PCO2 43.6 mm[Hg] Normal 35.0-45.0 [facility] Comment on above: Performed By: #### A BG ####Point of Care testing, ABG PEEP 10 [facility] Comment on above: Performed By: #### A BG ####Point of Care testing, ABG PH 7.52 High 7.35-7.45 [facility] Comment on above: Performed By: #### A BG ####Point of Care testing, ABG PO2 71.3 mm[Hg] Low 80.0-100.0 [facility] Comment on above: Performed By: #### A BG ####Point of Care testing, ABG TV 500 mL [facility] Comment on above: Performed By: #### A BG ####Point of Care testing, CO2 [Moles/Vol] 36.1 mmol/L High 23.0-27.0 [facility] Comment on above: Performed By: #### A BG ####Point of Care testing, HCO3 (Bld) [Moles/Vol] 34.8 mmol/L High 23.0-29.0 [facility] Comment on above: Performed By: #### A BG ####Point of Care testing, Respiratory Critical [facility] Comment on above: Result Comment: Crit ical Value called on: 11/16/2022 at 04:35PERFORMED BY:[facility] [place], [place] [phone] MEDICAL DIRECTORNATI LAUREN M.D. Performed By: #### A BG ####Point of Care testing, Set Respiratory Rate 20 [facility] Comment on above: Performed By: #### A BG ####Point of Care testing, VBG Draw Site Left Radial [facility] Comment on above: Performed By: #### A BG ####Point of Care testing, Ventilator Mode AC [facility] Comment on above: Performed By: #### A BG ####Point of Care testing, Automated erythrocytes count in urine sediment (number/area)Ordered By: Sanjay Holt on 11-16-2022 RBC Auto (Urine sed) [#/Area] 50-100 [HPF] 0-4 [facility] Automated leukocytes count i n urine sediment (number/area)Ordered By: Sanjay Holt on 11-16-2022 WBC Auto (Urine sed) [#/Area] 3-4 [HPF] 0-4 [facility] Basic Metabolic Panelon 11-07 Anion gap [Moles/Vol] 8.6 mmol/L Normal 6.0-15.0 [facility] Comment on above: Performed By: #### B MP, TRIG ####[facility] [address] [place] [address] [facility] Calcium [Mass/Vol] 7.5 mg/dL Low 8.6-10.3 [facility] Comment on above: Performed By: #### B MP, TRIG ####[facility] [address] [place] [address] [facility] Chloride [Moles/Vol] 90 mmol/L Low 98-107 [facility] Comment on above: Performed By: #### B MP, TRIG ####[facility] [place] [id number] [facility] CO2 [Moles/Vol] 36.7 mmol/L High 21.0-31.0 [place] [facility] Comment on above: Performed By: #### B MP, TRIG ####[place] [id number] [place] [id number] [facility] Creatinine [Mass/Vol] 0.65 mg/dL Low 0.70-1.30 [facility] Comment on above: Performed By: #### B MP, TRIG ####[place] [place] [address] [place] Creatinine Clr Calc Pharmacy 167.57 [facility] Comment on above: Performed By: #### B MP, TRIG ####[place] [address] [place] [id number] [facility] GFR/1.73 sq M.predicted MDRD (S/P/Bld) [Vol rate/Area] mL/min/{1.73_m2} [facility] Comment on above: Performed By: #### B MP, TRIG ####[place] [address] [place] [id number] [facility] Glucose [Mass/Vol] 106 mg/dL High 70-100 [facility] Comment on above: Result Comment: [place] Glucose Reference Range is dependent on time and content of last meal. Glucose of more than 200 mg/dL in a nonstressed, ambulatory subject supports the diagnosis of Diabetes Mellitus. ADA recommended reference range Performed By: #### B MP, TRIG ####[facility] [place] [id number] [place] Potassium [Moles/Vol] 4.3 mmol/L Normal 3.5-5.1 [facility] Comment on above: Performed By: #### B MP, TRIG ####[facility] [place] [id number] [facility] Sodium [Moles/Vol] 131 mmol/L Low 136-145 [facility] Comment on above: Performed By: #### B MP, TRIG ####[address] [place] [address] [facility] Urea nitrogen [Mass/Vol] 32 mg/dL High 7 [facility] Comment on above: Performed By: #### B MP, TRIG ####[address] [address] [facility] Bilirubin Test strip Ql (U)O rdered By: Sanjay Holt on 11-16-2022 Bilirubin Ql (U) Negative Negative [facility] Blood Cultureon 11-16-2022 Bacteria identified Cx Nom (Bld) NO GROWTH 5 DAYS PERFORMED BY: [place] [address] PATHOLOGIST WASHER CARCASS NATI LAUREN M.D. [facility] Comment on above: Performed By: #### C UBLD ####[address] [address] [facility] Bacteria identified Cx Nom (Bld) NO GROWTH 5 DAYS PERFORMED BY: [place] [address] PATHOLOGIST WASHER CARCASS NATI LAUREN M.D. [facility] Comment on above: Performed By: #### C UBLD ####[place] [phone] [facility] CT angio chest PE protocolon 11-16-2022 CT angio chest PE protocol Normal [facility] Color Auto (U)Ordered By: Stephanie Holt on 11-16-2022 Color (U) Dark yellow Yellow [facility] Dipstick and Microscopicon 0 11-16-2022 Appearance (U) Clear Normal Clear [facility] Comment on above: Order Comment: Name Collection Type:: Jones Catheter Performed By: #### C UU, ADDONUAPLUS ####[address] [address] [facility] Bacteria,Urine None Seen Normal None Seen [facility] Comment on above: Order Comment: Name Collection Type:: Jones Catheter Performed By: #### C UU, ADDONUAPLUS ####[address] [place] [address] [facility] Bilirubin,Urine Negative Normal Negative [facility] Comment on above: Order Comment: Name Collection Type:: Jones Catheter Performed By: #### C UU, ADDONUAPLUS ####[address] [address] [facility] Color (U) Dark Yellow Critically abnormal Yellow [facility] Comment on above: Order Comment: Name Collection Type:: Jones Catheter Performed By: #### C UU, ADDONUAPLUS ####[address] [address] [facility] Glucose Ql (U) Normal Normal Normal [facility] Comment on above: Order Comment: Name Collection Type:: Jones Catheter Performed By: #### C UU, ADDONUAPLUS ####[address] [address] [facility] Hyaline Casts,Urine 0-8 Normal 0-8 [facility] Comment on above: Order Comment: Name Collection Type:: Jones Catheter Result Comment: PERF ORMED BY:[address] [place], [place] [phone] MEDICAL DIRECTORNATI LAUREN M.D. Performed By: #### C UU, ADDONUAPLUS ####[address] [address] [facility] Ketones Ql (U) Negative Normal Negative [facility] Comment on above: Order Comment: Name Collection Type:: Jones Catheter Performed By: #### C UU, ADDONUAPLUS ####[address] [address] [facility] Leukocyte esterase Test strip Ql (U) 1+ High Negative [facility] Comment on above: Order Comment: Name Collection Type:: Jones Catheter Performed By: #### C UU, ADDONUAPLUS ####[address] [address] [facility] Nitrite,Urine Negative Normal Negative [facility] Comment on above: Order Comment: Name Collection Type:: Jones Catheter Performed By: #### C UU, ADDONUAPLUS ####[address] [address] [facility] Occult Blood,Urine 1+ High Negative [facility] Comment on above: Order Comment: Name Collection Type:: Jones Catheter Result Comment: PERF ORMED BY:[address] [place], [place] [phone] MEDICAL DIRECTORNATI LAUREN M.D. Performed By: #### C UU, ADDONUAPLUS ####[address] [address] [facility] pH (U) 5.5 [pH] Normal 5.0-9.0 [facility] Comment on above: Order Comment: Name Collection Type:: Jones Catheter Performed By: #### C UU, ADDONUAPLUS ####[address] [address] [facility] Protein,Urine Trace High Negative [facility] Comment on above: Order Comment: Name Collection Type:: Jones Catheter Performed By: #### C UU, ADDONUAPLUS ####[address] [address] [facility] RBC,Urine 50-100 High 0-4 [facility] Comment on above: Order Comment: Name Collection Type:: Jones Catheter Performed By: #### C UU, ADDONUAPLUS ####[address] [address] [facility] Specificy Wing,Urine 1.022 Normal 1.001-1.03 0 [facility] Comment on above: Order Comment: Name Collection Type:: Jones Catheter Performed By: #### C UU, ADDONUAPLUS ####[address] [address] [facility] Squamous Epithelial Cell,Urine None Seen Normal 0-2 [facility] Comment on above: Order Comment: Name Collection Type:: Jones Catheter Performed By: #### C UU, ADDONUAPLUS ####[address] [address] [facility] Urobilinogen,Urine Normal Normal Normal [facility] Comment on above: Order Comment: Name Collection Type:: Jones Catheter Performed By: #### C UU, ADDONUAPLUS ####[facility] [address] [place] [address] [facility] WBC,Urine 3-4 Normal 0-4 [facility] Comment on above: Order Comment: Name Collection Type:: Jones Catheter Performed By: #### C UU, ADDONUAPLUS ####[facility] [place] [address] [facility] Glucose Poct Glucometerson 0 11-16-2022 Commemt1 Glu2: Cleaned Meter Normal [facility] Comment on above: Result Comment: PERF ORMED BY:[place] [address] [place], [place] [phone] MEDICAL DIRECTORNATI LAUREN M.D. Performed By: #### G LULS ####Point of Care testing, Glucose [Mass/Vol] 101 mg/dL Normal [facility] Comment on above: Result Comment: [facility] Glucose Reference Range is dependent on time and content of last meal. Glucose of more than 200 mg/dL in a nonstressed, ambulatory subject supports the diagnosis of Diabetes Mellitus. Performed By: #### G LULS ####Point of Care testing, Ketones Auto test strip (U) [Mass/Vol]Ordered By: Sanjay Holt on 11-16-2022 Ketones (U) [Mass/Vol] Negative Negative [facility] - UrinalysisOrder ed By: Sanjay Holt on 11-16-2022 Hyaline casts LM Ql (Urine sed) 0-8 [LPF] 0-8 [facility] Nitrite Test strip Ql (U)Ord ered By: Sanjay Holt on 11-16-2022 Nitrite Ql (U) Negative Negative [facility] Protein Auto test strip (U) [Mass/Vol]Ordered By: Sanjay Holt on 11-16-2022 Protein (U) [Mass/Vol] Trace mg/dL Negative F [facility] Red blood cell stomatocyte d etectionOrdered By: Reginald Arroyo on 11-16-2022 Stomatocytes LM Ql (Bld) Slight [facility] Scan and CBCon 11-16-2022 Basophils (Bld) [#/Vol] 0.2 10*3/uL Normal 0.0-0.2 [facility] Comment on above: Performed By: #### S CAN CBC ####[address] Basophils/100 WBC (Bld) 0.7 % Normal . [facility] Comment on above: Performed By: #### S CAN CBC ####[address] Eosinophils (Bld) [#/Vol] 0.2 10*3/uL Normal 0.0-0.45 [facility] Comment on above: Performed By: #### S CAN CBC ####[address] Eosinophils/100 WBC (Bld) 0.8 % Normal . [facility] Comment on above: Performed By: #### S CAN CBC ####[address] Erythrocyte distribution width (RBC) [Ratio] 13.7 % Normal 12.0-14.8 [facility] Comment on above: Performed By: #### S CAN CBC ####[address] Hematocrit (Bld) [Volume fraction] 26.4 % Low 38.8-50.0 [facility] Comment on above: Performed By: #### S CAN CBC ####[address] Hemoglobin (Bld) [Mass/Vol] 8.6 g/dL Low 13.0-17.0 [facility] Comment on above: Performed By: #### S CAN CBC ####[address] Hypochromasia Moderate Normal [facility] Comment on above: Performed By: #### S CAN CBC ####[address] Lymphocytes (Bld) [#/Vol] 1.9 10*3/uL Normal 1.00-4.8 [facility] Comment on above: Performed By: #### S CAN CBC ####[address] Lymphocytes/100 WBC (Bld) 7.8 % Normal . [facility] Comment on above: Performed By: #### S CAN CBC ####[address] MCH (RBC) [Entitic mass] 29.0 pg Normal 27.5-35.2 [facility] Comment on above: Performed By: #### S CAN CBC ####[address] MCV (RBC) [Entitic vol] 89.5 fL Normal 83.5-101 [facility] Comment on above: Performed By: #### S CAN CBC ####[address] Mean Corpuscular HGB Conc 32.4 g/dL Low 32.5-35.6 [facility] Comment on above: Performed By: #### S CAN CBC ####[address] Monocytes (Bld) [#/Vol] 2.3 10*3/uL High 0.0-0.8 [facility] Comment on above: Performed By: #### S CAN CBC ####[address] Monocytes/100 WBC (Bld) 9.4 % Normal . [facility] Comment on above: Performed By: #### S CAN CBC ####[address] Neutrophils (Bld) [#/Vol] 19.7 10*3/uL High 1.8-7.7 [facility] Comment on above: Performed By: #### S CAN CBC ####[address] Neutrophils/100 WBC (Bld) 81.3 % Normal . [facility] Comment on above: Performed By: #### S CAN CBC ####[address] [address] [facility] NRBC% 0.0 /100{WBC} Normal 0-0.5 [facility] Comment on above: Performed By: #### S CAN CBC ####[address] [address] [facility] Platelet Estimate Normal Normal Normal [facility] Comment on above: Performed By: #### S CAN CBC ####[address] [address] [facility] Platelet mean volume (Bld) [Entitic vol] 7.8 fL Normal 6.6-10.1 [facility] Comment on above: Performed By: #### S CAN CBC ####[place] [id number] [facility] Platelet Morphology Normal Normal Normal [facility] Comment on above: Result Comment: PERF ORMED BY:[address] [place], [place] [phone] MEDICAL ALEKSANDAR LAUREN M.D. Performed By: #### S CAN CBC ####[address] [address] [facility] Platelets (Bld) [#/Vol] 369 10*3/uL Normal 150-450 [facility] Comment on above: Performed By: #### S CAN CBC ####[address] [address] [facility] Polychromasia Slight Normal [facility] Comment on above: Performed By: #### S CAN CBC ####[address] [address] [facility] RBC (Bld) [#/Vol] 2.95 10*6/uL Low 3.90-5.60 [facility] Comment on above: Performed By: #### S CAN CBC ####[address] [address] [facility] Stomatocytes Slight Normal [facility] Comment on above: Performed By: #### S CAN CBC ####[address] [address] [facility] WBC (Bld) [#/Vol] 24.2 10*3/uL High 4.1-10.5 [facility] Comment on above: Performed By: #### S CAN CBC ####[place] [id number] [facility] Specific gravity Auto test s trip (U) [Rel density]Ordered By: Sanjay Holt on 11-16-2022 Specific gravity (U) [Rel density] 1.022 1.001-1.03 0 [facility] Squamous epithelial cells de tection in urine sediment by light microscopyOrdered By: Sanjay Holt on 11-16-2022 Epithelial cells.squamous LM Ql (Urine sed) None seen [HPF] 0-2 [facility] Triglycerideson 11-16-2022 Triglyceride [Mass/Vol] 109 mg/dL Normal 0-149 [facility] Comment on above: Result Comment: TRIG ATP III CLASSIFICATION TRIG less than 150 mg/dL Normal TRIG 150-199 mg/dL Borderline high TRIG 200-500 mg/dL High TRIG greater than 500 mg/dL Very high Standard traceable to the Center for Disease Conrtrol and Prevention (CDC) test method.PERFORMED BY:[facility] [place], [place] [phone] MEDICAL DIRECTORNATI LAUREN M.D. Performed By: #### B MP, TRIG ####[place] [id number] [facility] Urine Cultureon 11-16-2022 Bacteria identified Cx Nom (U) No Growth 2 Days PERFORMED BY: [facility] [address] [place] [id number] PATHOLOGIST WASHER CARCASS NATI LAUREN M.D. Normal [facility] Comment on above: Performed By: #### C UU, ADDONUAPLUS ####[address] [address] [facility] Urine bacteria detection by automated methodOrdered By: Sanjay Holt on 11-16-2022 Bacteria Auto Ql (U) None seen None Seen [facility] Urine clarity by refractomet ry automatedOrdered By: Sanjay Holt on 11-16-2022 Clarity Refractometry automated (U) Clear Clear [facility] Urine culture routineOrdered By: Sanjay Holt on 11-16-2022 Bacteria identified Cx Nom (U) No Growth 2 Days [facility] Urine glucose measurement by automated test strip (mass/volume)Ordered By: Sanjay Holt on 11-16-2022 Glucose Auto test strip (U) [Mass/Vol] Normal mg/dL Normal [facility] Urine hemoglobin detection b y automated test stripOrdered By: Sanjay Holt on 11-16-2022 Hemoglobin Auto test strip Ql (U) 1+ Negative [facility] Urine leukocyte esterase det ection by automated test stripOrdered By: Sanjay Holt on 11-16-2022 Leukocyte esterase Auto test strip Ql (U) 1+ Negative [facility] Urobilinogen Auto test strip (U) [Mass/Vol]Ordered By: Sanjay Holt on 11-16-2022 Urobilinogen (U) [Mass/Vol] Normal mg/dL Normal [facility] XR chest 1V portableon 11-16 XR chest 1V portable Normal [facility] pH Auto test strip (U)Ordere d By: Sanjay Holt on 11-16-2022 pH (U) 5.5 [pH] 5.0-9.0 [facility] Arterial Blood Gason 023 ABG Base Excess 9.5 mmol/L High -3.0-3.0 [facility] Comment on above: Performed By: #### A BG ####Point of Care testing, ABG Frac Inspired O2 80 % Normal [facility] Comment on above: Performed By: #### A BG ####Point of Care testing, ABG Oxygen Content 7.0 mmol/L Normal 6.6-9.7 [facility] Comment on above: Performed By: #### A BG ####Point of Care testing, ABG Oxygen Saturation 97.2 % Normal 95.0-100.0 [facility] Comment on above: Performed By: #### A BG ####Point of Care testing, ABG PCO2 45.9 mm[Hg] High 35.0-45.0 [facility] Comment on above: Performed By: #### A BG ####Point of Care testing, ABG PEEP 10 [facility] Comment on above: Performed By: #### A BG ####Point of Care testing, ABG PH 7.49 High 7.35-7.45 [facility] Comment on above: Performed By: #### A BG ####Point of Care testing, ABG PO2 92.1 mm[Hg] Normal 80.0-100.0 [facility] Comment on above: Performed By: #### A BG ####Point of Care testing, ABG TV 500 mL [facility] Comment on above: Performed By: #### A BG ####Point of Care testing, CO2 [Moles/Vol] 35.4 mmol/L High 23.0-27.0 [facility] Comment on above: Performed By: #### A BG ####Point of Care testing, HCO3 (Bld) [Moles/Vol] 34.0 mmol/L High 23.0-29.0 [facility] Comment on above: Performed By: #### A BG ####Point of Care testing, Respiratory Critical [facility] Comment on above: Result Comment: Crit ical Value called on: 11/15/2022 at 05:48PERFORMED BY:[place] [address] [address] [place], [place] [phone] MEDICAL DIRECTORNATI LAUREN M.D. Performed By: #### A BG ####Point of Care testing, Set Respiratory Rate 20 [facility] Comment on above: Performed By: #### A BG ####Point of Care testing, VBG Draw Site Left Radial [facility] Comment on above: Performed By: #### A BG ####Point of Care testing, Ventilator Mode AC [facility] Comment on above: Performed By: #### A BG ####Point of Care testing, Basic Metabolic Panelon Anion gap [Moles/Vol] 8.4 mmol/L Normal 6.0-15.0 [facility] Comment on above: Performed By: #### S CAN CBC, BMP ####[place] [place] [address] [facility] Calcium [Mass/Vol] 7.8 mg/dL Low 8.6-10.3 [facility] Comment on above: Performed By: #### S CAN CBC, BMP ####[place] [id number] [facility] Chloride [Moles/Vol] 90 mmol/L Low 98-107 [facility] Comment on above: Performed By: #### S CAN CBC, BMP ####[place] [id number] [facility] CO2 [Moles/Vol] 35.9 mmol/L High 21.0-31.0 [facility] Comment on above: Performed By: #### S CAN CBC, BMP ####[place] [id number] [facility] Creatinine [Mass/Vol] 0.57 mg/dL Low 0.70-1.30 [facility] Comment on above: Performed By: #### S CAN CBC, BMP ####[place] [id number] [facility] Creatinine Clr Calc Pharmacy 191.33 [facility] Comment on above: Result Comment: PERF ORMED BY:[address] [place], [place] [phone] MEDICAL ALEKSANDAR LAUREN M.D. Performed By: #### S CAN CBC, BMP ####[address] [address] [place] GFR/1.73 sq M.predicted MDRD (S/P/Bld) [Vol rate/Area] mL/min/{1.73_m2} [facility] Comment on above: Performed By: #### S CAN CBC, BMP ####[place] [id number] [facility] Glucose [Mass/Vol] 126 mg/dL High 70-100 [facility] Comment on above: Result Comment: [place] Glucose Reference Range is dependent on time and content of last meal. Glucose of more than 200 mg/dL in a nonstressed, ambulatory subject supports the diagnosis of Diabetes Mellitus. ADA recommended reference range Performed By: #### S CAN CBC, BMP ####[facility] [address] [place] [address] [facility] Potassium [Moles/Vol] 4.3 mmol/L Normal 3.5-5.1 [facility] Comment on above: Performed By: #### S CAN CBC, BMP ####[place] [address] [place] [id number] [facility] Sodium [Moles/Vol] 130 mmol/L Low 136-145 [facility] Comment on above: Performed By: #### S CAN CBC, BMP ####[place] [address] [place] [id number] [facility] Urea nitrogen [Mass/Vol] 28 mg/dL High 7-25 [facility] Comment on above: Performed By: #### S CAN CBC, BMP ####[facility] [address] [place] [address] [facility] Scan and CBCon 11-15-2022 Basophils (Bld) [#/Vol] 0.0 10*3/uL Normal 0.0-0.2 [facility] Comment on above: Performed By: #### S CAN CBC, BMP ####[place] [address] [place] [phone] [place] Basophils/100 WBC (Bld) 0.1 % Normal . [facility] Comment on above: Performed By: #### S CAN CBC, BMP ####[facility] [place] [address] [place] Eosinophils (Bld) [#/Vol] 0.2 10*3/uL Normal 0.0-0.45 [facility] Comment on above: Performed By: #### S CAN CBC, BMP ####[facility] [place] [id number] [place] Eosinophils/100 WBC (Bld) 1.0 % Normal . [facility] Comment on above: Performed By: #### S CAN CBC, BMP ####[place] [id number] [facility] Erythrocyte distribution width (RBC) [Ratio] 13.7 % Normal 12.0-14.8 [facility] Comment on above: Performed By: #### S CAN CBC, BMP ####[place] [id number] [facility] Hematocrit (Bld) [Volume fraction] 30.3 % Low 38.8-50.0 [facility] Comment on above: Performed By: #### S CAN CBC, BMP ####[address] Hemoglobin (Bld) [Mass/Vol] 10.1 g/dL Low 13.0-17.0 [facility] Comment on above: Performed By: #### S CAN CBC, BMP ####[address] Hypochromasia Moderate Normal [facility] Comment on above: Performed By: #### S CAN CBC, BMP ####[address] Lymphocytes (Bld) [#/Vol] 1.9 10*3/uL Normal 1.00-4.8 [facility] Comment on above: Performed By: #### S CAN CBC, BMP ####[place] [id number] [facility] Lymphocytes/100 WBC (Bld) 7.8 % Normal . [facility] Comment on above: Performed By: #### S CAN CBC, BMP ####[address] MCH (RBC) [Entitic mass] 29.9 pg Normal 27.5-35.2 [facility] Comment on above: Performed By: #### S CAN CBC, BMP ####[place] [id number] [facility] MCV (RBC) [Entitic vol] 89.5 fL Normal 83.5-101 [facility] Comment on above: Performed By: #### S CAN CBC, BMP ####[place] [address] [place] [address] [facility] Mean Corpuscular HGB Conc 33.4 g/dL Normal 32.5-35.6 [facility] Comment on above: Performed By: #### S CAN CBC, BMP ####[address] [address] [facility] Monocytes (Bld) [#/Vol] 2.4 10*3/uL High 0.0-0.8 [facility] Comment on above: Performed By: #### S CAN CBC, BMP ####[place] [address] [place] [id number] [facility] Monocytes/100 WBC (Bld) 9.7 % Normal . [facility] Comment on above: Performed By: #### S CAN CBC, BMP ####[place] [id number] [facility] Neutrophils (Bld) [#/Vol] 20.4 10*3/uL High 1.8-7.7 [facility] Comment on above: Performed By: #### S CAN CBC, BMP ####[place] [id number] [facility] Neutrophils/100 WBC (Bld) 81.4 % Normal . [facility] Comment on above: Performed By: #### S CAN CBC, BMP ####[place] [id number] [facility] NRBC% 0.0 /100{WBC} Normal 0-0.5 [facility] Comment on above: Performed By: #### S CAN CBC, BMP ####[address] [address] [facility] Platelet Estimate Normal Normal Normal [facility] Comment on above: Performed By: #### S CAN CBC, BMP ####[place] [id number] [facility] Platelet mean volume (Bld) [Entitic vol] 7.7 fL Normal 6.6-10.1 [facility] Comment on above: Performed By: #### S CAN CBC, BMP ####[place] [id number] [facility] Platelet Morphology Normal Normal Normal [facility] Comment on above: Result Comment: PERF ORMED BY:[address] FORRESTERCHAR[place], [place] [phone] MEDICAL ALEKSANDAR LAUREN M.D. Performed By: #### S CAN CBC, BMP ####[place] [id number] [facility] Platelets (Bld) [#/Vol] 381 10*3/uL Normal 150-450 [facility] Comment on above: Performed By: #### S CAN CBC, BMP ####[address] Polychromasia Slight Normal [facility] Comment on above: Performed By: #### S CAN CBC, BMP ####[address] RBC (Bld) [#/Vol] 3.39 10*6/uL Low 3.90-5.60 [facility] Comment on above: Performed By: #### S CAN CBC, BMP ####[address] Stomatocytes Slight Normal [facility] Comment on above: Performed By: #### S CAN CBC, BMP ####[address] Toxic Vacuolation Slight Normal [facility] Comment on above: Performed By: #### S CAN CBC, BMP ####[place] [id number] [facility] WBC (Bld) [#/Vol] 25.0 10*3/uL High 4.1-10.5 [facility] Comment on above: Performed By: #### S CAN CBC, BMP ####[place] [id number] [facility] Toxic leukocyte vacuolation detectionOrdered By: Reginald Arroyo on 11-15-2022 Leukocyte toxic vacuoles LM Ql (Bld) Slight [facility] XR chest 1V portableon 11-15 XR chest 1V portable Normal [facility] AFB Specimen Processingon AFB Specimen Processing [facility] Comment on above: Performed By: #### A FBCS RES1, MYC CULT ####[facility] ,#### FS ####[facility] [id number] [place] [id number] [facility] Anisocytosis LM Ql (Bld)Orde red By: Reginald Arroyo on 11-14-2022 Anisocytosis Ql (Bld) Slight [facility] Arterial Blood Gason 023 ABG Base Excess 8.5 mmol/L High -3.0-3.0 [facility] Comment on above: Performed By: #### A BG ####Point of Care testing, ABG Frac Inspired O2 85 % [facility] Comment on above: Performed By: #### A BG ####Point of Care testing, ABG Oxygen Content 7.2 mmol/L Normal 6.6-9.7 [facility] Comment on above: Performed By: #### A BG ####Point of Care testing, ABG Oxygen Saturation 93.3 % Low 95.0-100.0 [facility] Comment on above: Performed By: #### A BG ####Point of Care testing, ABG PCO2 47.2 mm[Hg] High 35.0-45.0 [facility] Comment on above: Performed By: #### A BG ####Point of Care testing, ABG PEEP 8 [facility] Comment on above: Performed By: #### A BG ####Point of Care testing, ABG PH 7.47 High 7.35-7.45 [facility] Comment on above: Performed By: #### A BG ####Point of Care testing, ABG PO2 68.0 mm[Hg] Low 80.0-100.0 [facility] Comment on above: Performed By: #### A BG ####Point of Care testing, ABG TV 500 mL [facility] Comment on above: Performed By: #### A BG ####Point of Care testing, CO2 [Moles/Vol] 34.8 mmol/L High 23.0-27.0 [facility] Comment on above: Performed By: #### A BG ####Point of Care testing, HCO3 (Bld) [Moles/Vol] 33.3 mmol/L High 23.0-29.0 [facility] Comment on above: Performed By: #### A BG ####Point of Care testing, Respiratory Critical [facility] Comment on above: Result Comment: Crit ical Value called on: 11/14/2022 at 04:56PERFORMED BY:[facility] [place], [place] [phone] MEDICAL DIRECTORNATI LAUREN M.D. Performed By: #### A BG ####Point of Care testing, Set Respiratory Rate 20 [facility] Comment on above: Performed By: #### A BG ####Point of Care testing, VBG Draw Site Left Radial [facility] Comment on above: Performed By: #### A BG ####Point of Care testing, Ventilator Mode AC [facility] Comment on above: Performed By: #### A BG ####Point of Care testing, Basic Metabolic Panel Anion gap [Moles/Vol] 11.5 mmol/L Normal 6.0-15.0 [facility] Comment on above: Performed By: #### D IFF CBC, BMP ####[facility] [address]th[address] [place] [address] [facility] Calcium [Mass/Vol] 7.8 mg/dL Low 8.6-10.3 [facility] Comment on above: Performed By: #### D IFF CBC, BMP ####[facility] Jqn3352 [place] [address] [facility] Chloride [Moles/Vol] 91 mmol/L Low 98-107 [facility] Comment on above: Performed By: #### D IFF CBC, BMP ####[facility] Xac[address]709 [place] [address] [place] CO2 [Moles/Vol] 32.8 mmol/L High 21.0-31.0 [facility] Comment on above: Performed By: #### D IFF CBC, BMP ####[facility] [address] [place] [address] [facility] Creatinine [Mass/Vol] 0.59 mg/dL Low 0.70-1.30 [facility] Comment on above: Performed By: #### D IFF CBC, BMP ####[place] [address] [place] [address] [place] Creatinine Clr Calc Pharmacy 186.93 [facility] Comment on above: Result Comment: PERF ORMED BY:[address] [place], [place] [phone] MEDICAL DIRECTORNATI LAUREN M.D. Performed By: #### D IFF CBC, BMP ####[place] [address] [place] [address] [place] GFR/1.73 sq M.predicted MDRD (S/P/Bld) [Vol rate/Area] mL/min/{1.73_m2} [facility] Comment on above: Performed By: #### D IFF CBC, BMP ####[place] [address] [place] [address] [facility] Glucose [Mass/Vol] 105 mg/dL High 70-100 [facility] Comment on above: Result Comment: [place] Glucose Reference Range is dependent on time and content of last meal. Glucose of more than 200 mg/dL in a nonstressed, ambulatory subject supports the diagnosis of Diabetes Mellitus. ADA recommended reference range Performed By: #### D IFF CBC, BMP ####[facility] Whg4352 [place] [address] [facility] Potassium [Moles/Vol] 4.3 mmol/L Normal 3.5-5.1 [facility] Comment on above: Performed By: #### D IFF CBC, BMP ####[place] [id number] [place] [id number] [facility] Sodium [Moles/Vol] 131 mmol/L Significant change down 136-145 [facility] Comment on above: Performed By: #### D IFF CBC, BMP ####[address] Urea nitrogen [Mass/Vol] 22 mg/dL Normal 7-25 [facility] Comment on above: Performed By: #### D IFF CBC, BMP ####[place] [id number] [facility] Bronch Cultureon 11-14-2022 Bronch Culture Normal [facility] Comment on above: Performed By: #### C UBR, ####[address] Diff and CBCon 11-14-2022 Anisocytosis Ql (Bld) Slight Normal Fir [facility] Comment on above: Performed By: #### D IFF CBC, BMP ####[address] Eosinophils/100 WBC (Bld) 2 % Normal 1-3 [facility] Comment on above: Performed By: #### D IFF CBC, BMP ####[address] Erythrocyte distribution width (RBC) [Ratio] 13.7 % Normal 12.0-14.8 [facility] Comment on above: Performed By: #### D IFF CBC, BMP ####[place] [id number] [facility] Hematocrit (Bld) [Volume fraction] 34.1 % Low 38.8-50.0 [facility] Comment on above: Performed By: #### D IFF CBC, BMP ####[place] [id number] [facility] Hemoglobin (Bld) [Mass/Vol] 11.6 g/dL Low 13.0-17.0 [facility] Comment on above: Performed By: #### D IFF CBC, BMP ####[address] [place] [address] [place] Hypochromasia Slight Normal [facility] Comment on above: Performed By: #### D IFF CBC, BMP ####[place] [id number] [facility] Lymphocytes/100 WBC (Bld) 9 % Low 18-42 [facility] Comment on above: Performed By: #### D IFF CBC, BMP ####[address] MCH (RBC) [Entitic mass] 30.3 pg Normal 27.5-35.2 [facility] Comment on above: Performed By: #### D IFF CBC, BMP ####[address] MCV (RBC) [Entitic vol] 89.3 fL Normal 83.5-101 [facility] Comment on above: Performed By: #### D IFF CBC, BMP ####[address] Mean Corpuscular HGB Conc 33.9 g/dL Normal 32.5-35.6 [facility] Comment on above: Performed By: #### D IFF CBC, BMP ####[address] Metamyelocytes 2 % High 0-0 [facility] Comment on above: Performed By: #### D IFF CBC, BMP ####[place] [id number] [facility] Monocytes/100 WBC (Bld) 8 % Normal 2-11 [facility] Comment on above: Performed By: #### D IFF CBC, BMP ####[place] [id number] [facility] Myelocytes 1 % High 0-0 [facility] Comment on above: Performed By: #### D IFF CBC, BMP ####[place] [id number] [facility] Platelet Estimate Normal Normal Normal [facility] Comment on above: Result Comment: PERF ORMED BY:[place] [address] [address] [place]RESTER[place], [place] [phone] MEDICAL DIRECTORNATI LAUREN M.D. Performed By: #### D IFF CBC, BMP ####[address] [address] [facility] Platelet mean volume (Bld) [Entitic vol] 7.3 fL Normal 6.6-10.1 [facility] Comment on above: Performed By: #### D IFF CBC, BMP ####[address] [address] [facility] Platelet Morphology Normal Normal Normal [facility] Comment on above: Result Comment: PERF ORMED BY:[place] [address] [address] FORRESTER[place], [place] [phone] MEDICAL DIRECTORNATI LAUREN M.D. Performed By: #### D IFF CBC, BMP ####[address] [address] [facility] Platelets (Bld) [#/Vol] 445 10*3/uL Normal 150-450 [facility] Comment on above: Performed By: #### D IFF CBC, BMP ####[address] [address] [facility] Poikilocytosis Slight Normal [facility] Comment on above: Performed By: #### D IFF CBC, BMP ####[address] [address] [facility] Polychromasia Slight Normal [facility] Comment on above: Performed By: #### D IFF CBC, BMP ####[address] [address] [facility] RBC (Bld) [#/Vol] 3.82 10*6/uL Low 3.90-5.60 [facility] Comment on above: Performed By: #### D IFF CBC, BMP ####[address] [address] [facility] Segmented neutrophils/100 WBC (Bld) 79 % High 50-70 [facility] Comment on above: Performed By: #### D IFF CBC, BMP ####[facility] [place] [address] [facility] Stomatocytes Slight [facility] Comment on above: Performed By: #### D IFF CBC, BMP ####[facility] [place] [address] [facility] Target Cells Slight [facility] Comment on above: Performed By: #### D IFF CBC, BMP ####[place] [address] [place] [address] [facility] WBC (Bld) [#/Vol] 21.5 10*3/uL High 4.1-10.5 [facility] Comment on above: Performed By: #### D IFF CBC, BMP ####[place] [address] [place] [address] [facility] Eosinophils/100 WBC Manual c nt (Bld)Ordered By: Reginald Arroyo on 11-14-2022 Eosinophils/100 WBC (Bld) 2 % 1-3 [facility] Fungal Smearon 11-14-2022 Fungal Smear Fungus Smear Results No Yeast Like Elements Seen No Fungal Like Elements Seen PERFORMED BY: [facility] [address] [place] [address] PATHOLOGIST WASHER CARCASS NATI LAUREN M.D. [facility] Comment on above: Performed By: #### A FBCS RES1, MYC CULT ####[facility] ,#### FS ####[place] [id number] [facility] Fungus (Mycology) Cultureon 11-14-2022 Fungus (Mycology) Culture [facility] Comment on above: Performed By: #### A FBCS RES1, MYC CULT ####[facility] ,#### FS ####[address] [address] [facility] Glucose Poct Glucometerson 0 11-14-2022 Glucose [Mass/Vol] 87 mg/dL [facility] Comment on above: Result Comment: [place] Glucose Reference Range is dependent on time and content of last meal. Glucose of more than 200 mg/dL in a nonstressed, ambulatory subject supports the diagnosis of Diabetes Mellitus.PERFORMED BY:[facility] [place], [place] [phone] MEDICAL DIRECTORNATI LAUREN M.D. Performed By: #### G LULS ####Point of Care testing, Gram Stainon 11-14-2022 Microscopic observation Gram stain Nom (Unsp spec) Gram Stain Result 3+ White Blood Cells 3+ Gram Positive Bacilli 1FPC PERFORMED BY: [facility] [address] [place] [address] PATHOLOGIST WASHER CARCASS NATI LAUREN M.D. Normal [facility] Comment on above: Performed By: #### C UBR, ####[facility] A[address] [place] [address] [facility] Lymphocytes/100 WBC Manual c nt (Bld)Ordered By: Reginald Arroyo on 11-14-2022 Lymphocytes/100 WBC (Bld) 9 % 18-42 [facility] Metamyelocytes/100 WBC Manua l cnt (Bld)Ordered By: Reginald Arroyo on 11-14-2022 Metamyelocytes/100 WBC (Bld) 2 % 0-0 [facility] Monocytes/100 WBC Manual cnt (Bld)Ordered By: Reginald Arroyo on 11-14-2022 Monocytes/100 WBC (Bld) 8 % 2-11 [facility] Myelocytes/100 WBC Manual cn t (Bld)Ordered By: Reginald Arroyo on 11-14-2022 Myelocytes/100 WBC (Bld) 1 % 0-0 [facility] Segmented neutrophils/100 WB C Manual cnt (Bld)Ordered By: Reginald Arroyo on 11-14-2022 Segmented neutrophils/100 WBC (Bld) 79 % 50-70 [facility] Target cellsOrdered By: Kira Arroyo on 11-14-2022 Target cells LM Ql (Bld) Slight [facility] Triglycerideson 11-14-2022 Triglyceride [Mass/Vol] 144 mg/dL Normal 0-149 [facility] Comment on above: Order Comment: Comme nt please run off blood drawn this morning Result Comment: TRIG ATP III CLASSIFICATION TRIG less than 150 mg/dL Normal TRIG 150-199 mg/dL Borderline high TRIG 200-500 mg/dL High TRIG greater than 500 mg/dL Very high Standard traceable to the Center for Disease Conrtrol and Prevention (CDC) test method.PERFORMED BY:[facility] [place], [place] [phone] MEDICAL DIRECTORNATI LAUREN M.D. Performed By: #### T RIG ####[facility] [address] [place] [address] [facility] US venous duplex LE BIon US venous duplex LE BI Normal [facility] XR chest 1V portableon 11-14 XR chest 1V portable Normal [facility] XR chest 1V portable Normal [facility] Arterial Blood Gason 023 ABG Base Excess 10.0 mmol/L High -3.0-3.0 [facility] Comment on above: Performed By: #### A BG ####Point of Care testing, ABG Frac Inspired O2 60 % [facility] Comment on above: Performed By: #### A BG ####Point of Care testing, ABG Oxygen Content 7.3 mmol/L Normal 6.6-9.7 [facility] Comment on above: Performed By: #### A BG ####Point of Care testing, ABG Oxygen Saturation 90.3 % Low 95.0-100.0 [facility] Comment on above: Performed By: #### A BG ####Point of Care testing, ABG PCO2 52.0 mm[Hg] Off scale high 35.0-45.0 [facility] Comment on above: Performed By: #### A BG ####Point of Care testing, ABG PEEP 8 [facility] Comment on above: Performed By: #### A BG ####Point of Care testing, ABG PH 7.45 Normal 7.35-7.45 [facility] Comment on above: Performed By: #### A BG ####Point of Care testing, ABG PO2 58.1 mm[Hg] Low 80.0-100.0 [facility] Comment on above: Performed By: #### A BG ####Point of Care testing, ABG TV 500 mL [facility] Comment on above: Performed By: #### A BG ####Point of Care testing, CO2 [Moles/Vol] 37.2 mmol/L High 23.0-27.0 [facility] Comment on above: Performed By: #### A BG ####Point of Care testing, HCO3 (Bld) [Moles/Vol] 35.6 mmol/L High 23.0-29.0 [facility] Comment on above: Performed By: #### A BG ####Point of Care testing, Respiratory Critical [facility] Comment on above: Result Comment: Crit ical Value called on: 11/13/2022 at 05:00PERFORMED BY:[facility] [place], [place] [phone] MEDICAL DIRECTORNATI LAUREN M.D. Performed By: #### A BG ####Point of Care testing, Set Respiratory Rate 20 [facility] Comment on above: Performed By: #### A BG ####Point of Care testing, VBG Draw Site Right Radial [facility] Comment on above: Performed By: #### A BG ####Point of Care testing, Ventilator Mode AC [facility] Comment on above: Performed By: #### A BG ####Point of Care testing, Basic Metabolic Panelon 050 Anion gap [Moles/Vol] 7.9 mmol/L Normal 6.0-15.0 [facility] Comment on above: Performed By: #### S CAN CBC, BMP ####[facility] [address] Banegassentara albemarle [place] [address] [place] Calcium [Mass/Vol] 8.0 mg/dL Low 8.6-10.3 [facility] Comment on above: Performed By: #### S CAN CBC, BMP ####[facility] [address] [place] [address] [place] Chloride [Moles/Vol] 96 mmol/L Low 98-107 [facility] Comment on above: Performed By: #### S CAN CBC, BMP ####[facility] Qce[address]150 [place] [address] [place] CO2 [Moles/Vol] 37.5 mmol/L High 21.0-31.0 [facility] Comment on above: Performed By: #### S CAN CBC, BMP ####[facility] Rci[address] [place] [address] [place] Creatinine [Mass/Vol] 0.42 mg/dL Low 0.70-1.30 [facility] Comment on above: Performed By: #### S CAN CBC, BMP ####[facility] Iyr[address] [place] [address] [place] Creatinine Clr Calc Pharmacy 263.49 [facility] Comment on above: Result Comment: PERF ORMED BY:[address] NGOZIRosalbaAlfreditoALE, [place] [phone] MEDICAL DIRECTORNATI LAUREN M.D. Performed By: #### S CAN CBC, BMP ####[place] [address] [place] [address] [place] GFR/1.73 sq M.predicted MDRD (S/P/Bld) [Vol rate/Area] mL/min/{1.73_m2} [facility] Comment on above: Performed By: #### S CAN CBC, BMP ####[facility] [address]zz[address] [place] [address] [place] Glucose [Mass/Vol] 93 mg/dL Normal 70-100 [facility] Comment on above: Result Comment: [place] Glucose Reference Range is dependent on time and content of last meal. Glucose of more than 200 mg/dL in a nonstressed, ambulatory subject supports the diagnosis of Diabetes Mellitus. ADA recommended reference range Performed By: #### S CAN CBC, BMP ####[facility] Iem[address]67 [place] [address] [facility] Potassium [Moles/Vol] 4.4 mmol/L Normal 3.5-5.1 [facility] Comment on above: Performed By: #### S CAN CBC, BMP ####[facility] Uez[address] [place] [address] [facility] Sodium [Moles/Vol] 137 mmol/L Normal 136-145 [facility] Comment on above: Performed By: #### S CAN CBC, BMP ####[facility] [address] [place] [id number] [facility] Urea nitrogen [Mass/Vol] 20 mg/dL Normal 7-25 [facility] Comment on above: Performed By: #### S CAN CBC, BMP ####[facility] [address] [place] [id number] [facility] Glucose Poct Glucometerson 0 11-13-2022 Commemt1 Glu2: Cleaned Meter [facility] Comment on above: Result Comment: PERF ORMED BY:[address] NGOZIRosalbaAlfreditoALE, [place] [phone] MEDICAL DIRECTORNATI LAUREN M.D. Performed By: #### G LULS ####Point of Care testing, Glucose [Mass/Vol] 121 mg/dL [facility] Comment on above: Result Comment: [facility] Glucose Reference Range is dependent on time and content of last meal. Glucose of more than 200 mg/dL in a nonstressed, ambulatory subject supports the diagnosis of Diabetes Mellitus. Performed By: #### G LULS ####Point of Care testing, Commemt1 Glu2: Cleaned Meter [facility] Comment on above: Result Comment: PERF ORMED BY:[place] [address] [address] NGOZIRosalbaAlfreditoALECHAR[place], [place] [phone] MEDICAL DIRECTORNATI LAUREN M.D. Performed By: #### G LULS ####Point of Care testing, Glucose [Mass/Vol] 87 mg/dL [facility] Comment on above: Result Comment: [facility] Glucose Reference Range is dependent on time and content of last meal. Glucose of more than 200 mg/dL in a nonstressed, ambulatory subject supports the diagnosis of Diabetes Mellitus. Performed By: #### G LULS ####Point of Care testing, Commemt1 Glu2: Cleaned Meter [facility] Comment on above: Result Comment: PERF ORMED BY:[place] [address] [place] [place], [place] [phone] MEDICAL DIRECTORNATI LAUREN M.D. Performed By: #### G LULS ####Point of Care testing, Glucose [Mass/Vol] 96 mg/dL Normal [facility] Comment on above: Result Comment: [place] om Glucose Reference Range is dependent on time and content of last meal. Glucose of more than 200 mg/dL in a nonstressed, ambulatory subject supports the diagnosis of Diabetes Mellitus. Performed By: #### G LULS ####Point of Care testing, Commemt1 Glu2: Cleaned Meter [facility] Comment on above: Result Comment: PERF ORMED BY:[address] [place], [place] [phone] MEDICAL DIRECTORNATI LAUREN M.D. Performed By: #### G LULS ####Point of Care testing, Glucose [Mass/Vol] 111 mg/dL Normal [facility] Comment on above: Result Comment: [place] om Glucose Reference Range is dependent on time and content of last meal. Glucose of more than 200 mg/dL in a nonstressed, ambulatory subject supports the diagnosis of Diabetes Mellitus. Performed By: #### G LULS ####Point of Care testing, Scan and CBCon 11-13-2022 Basophils (Bld) [#/Vol] 0.2 10*3/uL Normal 0.0-0.2 [facility] Comment on above: Performed By: #### S CAN CBC, BMP ####[facility] Jjj[address]65 [place] [address] [facility] [facility] Basophils/100 WBC (Bld) 1.2 % Normal . [facility] Comment on above: Performed By: #### S CAN CBC, BMP ####[place] [id number] Eosinophils (Bld) [#/Vol] 0.3 10*3/uL Normal 0.0-0.45 [facility] Comment on above: Performed By: #### S CAN CBC, BMP ####[address] Eosinophils/100 WBC (Bld) 2.0 % Normal . [facility] Comment on above: Performed By: #### S CAN CBC, BMP ####[address] Erythrocyte distribution width (RBC) [Ratio] 14.3 % Normal 12.0-14.8 [facility] Comment on above: Performed By: #### S CAN CBC, BMP ####[address] Hematocrit (Bld) [Volume fraction] 30.0 % Low 38.8-50.0 [facility] Comment on above: Performed By: #### S CAN CBC, BMP ####[address] Hemoglobin (Bld) [Mass/Vol] 9.8 g/dL Low 13.0-17.0 [facility] Comment on above: Performed By: #### S CAN CBC, BMP ####[address] Hypochromasia Moderate Normal [facility] Comment on above: Performed By: #### S CAN CBC, BMP ####[address] Lymphocytes (Bld) [#/Vol] 3.0 10*3/uL Normal 1.00-4.8 [facility] Comment on above: Performed By: #### S CAN CBC, BMP ####[address] Lymphocytes/100 WBC (Bld) 19.1 % Normal . [facility] Comment on above: Performed By: #### S CAN CBC, BMP ####[place] [address] MCH (RBC) [Entitic mass] 29.6 pg Normal 27.5-35.2 [facility] Comment on above: Performed By: #### S CAN CBC, BMP ####[address] MCV (RBC) [Entitic vol] 90.9 fL Normal 83.5-101 [facility] Comment on above: Performed By: #### S CAN CBC, BMP ####[address] Mean Corpuscular HGB Conc 32.6 g/dL Normal 32.5-35.6 [facility] Comment on above: Performed By: #### S CAN CBC, BMP ####[address] Monocytes (Bld) [#/Vol] 1.2 10*3/uL High 0.0-0.8 [facility] Comment on above: Performed By: #### S CAN CBC, BMP ####[address] Monocytes/100 WBC (Bld) 7.7 % Normal . [facility] Comment on above: Performed By: #### S CAN CBC, BMP ####[address] Neutrophils (Bld) [#/Vol] 11.1 10*3/uL High 1.8-7.7 [facility] Comment on above: Performed By: #### S CAN CBC, BMP ####[address] Neutrophils/100 WBC (Bld) 70.0 % Normal . [facility] Comment on above: Performed By: #### S CAN CBC, BMP ####[address] NRBC% 0.1 /100{WBC} Normal 0-0.5 [facility] Comment on above: Performed By: #### S CAN CBC, BMP ####[address] [place] [address] [facility] Platelet Estimate Normal Normal Normal [facility] Comment on above: Performed By: #### S CAN CBC, BMP ####[place] [id number] [facility] Platelet mean volume (Bld) [Entitic vol] 7.0 fL Normal 6.6-10.1 [facility] Comment on above: Performed By: #### S CAN CBC, BMP ####[place] [id number] [facility] Platelet Morphology Normal Normal Normal [facility] Comment on above: Result Comment: PERF ORMED BY:[address] [place], [place] [phone] MEDICAL DIRECTORNATI LAUREN M.D. Performed By: #### S CAN CBC, BMP ####[place] [id number] [facility] Platelets (Bld) [#/Vol] 435 10*3/uL Normal 150-450 [facility] Comment on above: Performed By: #### S CAN CBC, BMP ####[place] [id number] [facility] Polychromasia Slight Normal [facility] Comment on above: Performed By: #### S CAN CBC, BMP ####[place] [id number] [facility] RBC (Bld) [#/Vol] 3.30 10*6/uL Low 3.90-5.60 [facility] Comment on above: Performed By: #### S CAN CBC, BMP ####[place] [id number] [facility] Stomatocytes Slight Normal [facility] Comment on above: Performed By: #### S CAN CBC, BMP ####[place] [id number] [facility] WBC (Bld) [#/Vol] 15.9 10*3/uL High 4.1-10.5 [facility] Comment on above: Performed By: #### S CAN CBC, BMP ####[facility] [id number] [place] [address] [facility] XR chest 1V portableon 11-13 XR chest 1V portable Normal [facility] Arterial Blood Gason 023 ABG Base Excess 7.5 mmol/L High -3.0-3.0 [facility] Comment on above: Performed By: #### A BG ####Point of Care testing, ABG Frac Inspired O2 45 % [facility] Comment on above: Performed By: #### A BG ####Point of Care testing, ABG Oxygen Content 6.3 mmol/L Low 6.6-9.7 [facility] Comment on above: Performed By: #### A BG ####Point of Care testing, ABG Oxygen Saturation 89.5 % Low 95.0-100.0 [facility] Comment on above: Performed By: #### A BG ####Point of Care testing, ABG PCO2 50.7 mm[Hg] Off scale high 35.0-45.0 [facility] Comment on above: Performed By: #### A BG ####Point of Care testing, ABG PEEP 8 [facility] Comment on above: Performed By: #### A BG ####Point of Care testing, ABG PH 7.43 Normal 7.35-7.45 [facility] Comment on above: Performed By: #### A BG ####Point of Care testing, ABG PO2 59.2 mm[Hg] Low 80.0-100.0 [facility] Comment on above: Performed By: #### A BG ####Point of Care testing, ABG TV 500 mL [facility] Comment on above: Performed By: #### A BG ####Point of Care testing, CO2 [Moles/Vol] 34.5 mmol/L High 23.0-27.0 [facility] Comment on above: Performed By: #### A BG ####Point of Care testing, HCO3 (Bld) [Moles/Vol] 33.0 mmol/L High 23.0-29.0 [facility] Comment on above: Performed By: #### A BG ####Point of Care testing, Respiratory Critical [facility] Comment on above: Result Comment: Crit ical Value called on: 11/12/2022 at 04:59PERFORMED BY:[address] [place], [place] [phone] MEDICAL DIRECTORNATI LAUREN M.D. Performed By: #### A BG ####Point of Care testing, Set Respiratory Rate 20 [facility] Comment on above: Performed By: #### A BG ####Point of Care testing, VBG Draw Site Right Radial [facility] Comment on above: Performed By: #### A BG ####Point of Care testing, Ventilator Mode AC [facility] Comment on above: Performed By: #### A BG ####Point of Care testing, Basic Metabolic Panelon 05 Anion gap [Moles/Vol] 7.0 mmol/L Normal 6.0-15.0 [facility] Comment on above: Performed By: #### B MP, DIFF CBC ####[facility] [id number] [place] [address] [facility] Calcium [Mass/Vol] 7.7 mg/dL Low 8.6-10.3 [facility] Comment on above: Performed By: #### B MP, DIFF CBC ####[facility] [id number] [place] [address] [place] Chloride [Moles/Vol] 99 mmol/L Normal 98-107 [facility] Comment on above: Performed By: #### B MP, DIFF CBC ####[facility] [id number] [place] [address] [place] CO2 [Moles/Vol] 36.1 mmol/L High 21.0-31.0 [facility] Comment on above: Performed By: #### B MP, DIFF CBC ####[facility] Vam[address] [place] [address] [place] Creatinine [Mass/Vol] 0.39 mg/dL Low 0.70-1.30 [facility] Comment on above: Performed By: #### B MP, DIFF CBC ####[place] [id number] [place] [address] [place] Creatinine Clr Calc Pharmacy 278.31 [facility] Comment on above: Result Comment: PERF ORMED BY:[address] [place], [place] [phone] MEDICAL ALEKSANDAR LAUREN M.D. Performed By: #### B MP, DIFF CBC ####[facility] [id number] [place] [address] [place] GFR/1.73 sq M.predicted MDRD (S/P/Bld) [Vol rate/Area] mL/min/{1.73_m2} [facility] Comment on above: Performed By: #### B MP, DIFF CBC ####[place] [address] [place] [address] [facility] Glucose [Mass/Vol] 128 mg/dL High 70-100 [facility] Comment on above: Result Comment: [place] Glucose Reference Range is dependent on time and content of last meal. Glucose of more than 200 mg/dL in a nonstressed, ambulatory subject supports the diagnosis of Diabetes Mellitus. ADA recommended reference range Performed By: #### B MP, DIFF CBC ####[place] [address] [place] [address] [place] Potassium [Moles/Vol] 4.1 mmol/L Normal 3.5-5.1 [facility] Comment on above: Performed By: #### B MP, DIFF CBC ####[place] [address] [place] [address] [place] Sodium [Moles/Vol] 138 mmol/L Normal 136-145 [facility] Comment on above: Performed By: #### B MP, DIFF CBC ####[facility] [id number] [place] [address] [place] Urea nitrogen [Mass/Vol] 15 mg/dL Normal 7-25 [facility] Comment on above: Performed By: #### B MP, DIFF CBC ####[place] [id number] [facility] Diff and CBCon 11-12-2022 Anisocytosis Ql (Bld) Slight Normal Fir [facility] Comment on above: Performed By: #### B MP, DIFF CBC ####[place] [id number] [facility] Erythrocyte distribution width (RBC) [Ratio] 13.9 % Normal 12.0-14.8 [facility] Comment on above: Performed By: #### B MP, DIFF CBC ####[address] Hematocrit (Bld) [Volume fraction] 29.5 % Low 38.8-50.0 [facility] Comment on above: Performed By: #### B MP, DIFF CBC ####[address] Hemoglobin (Bld) [Mass/Vol] 9.9 g/dL Low 13.0-17.0 [facility] Comment on above: Performed By: #### B MP, DIFF CBC ####[place] [id number] [facility] Hypochromasia Moderate Normal [facility] Comment on above: Performed By: #### B MP, DIFF CBC ####[place] [id number] [facility] Lymphocytes/100 WBC (Bld) 13 % Low 18-42 [facility] Comment on above: Performed By: #### B MP, DIFF CBC ####[place] [id number] [facility] MCH (RBC) [Entitic mass] 30.5 pg Normal 27.5-35.2 [facility] Comment on above: Performed By: #### B MP, DIFF CBC ####[place] [id number] [facility] MCV (RBC) [Entitic vol] 91.1 fL Normal 83.5-101 [facility] Comment on above: Performed By: #### B MP, DIFF CBC ####[address] [place] [address] [facility] Mean Corpuscular HGB Conc 33.5 g/dL Normal 32.5-35.6 [facility] Comment on above: Performed By: #### B MP, DIFF CBC ####[place] [id number] [facility] Metamyelocytes 3 % High 0-0 [facility] Comment on above: Performed By: #### B MP, DIFF CBC ####[address] Monocytes/100 WBC (Bld) 4 % Normal 2-11 [facility] Comment on above: Performed By: #### B MP, DIFF CBC ####[address] Myelocytes 3 % High 0-0 [facility] Comment on above: Performed By: #### B MP, DIFF CBC ####[place] [id number] [facility] Platelet Estimate Normal Normal Normal [facility] Comment on above: Performed By: #### B MP, DIFF CBC ####[place] [id number] [facility] Platelet mean volume (Bld) [Entitic vol] 7.1 fL Normal 6.6-10.1 [facility] Comment on above: Result Comment: PERF ORMED BY:[place] [address] [place] [place], [place] [phone] MEDICAL DIRECTORNATI LAUREN M.D. Performed By: #### B MP, DIFF CBC ####[place] [id number] [facility] Platelet Morphology Normal Normal Normal [facility] Comment on above: Result Comment: PERF ORMED BY:[address] [place], [place] [phone] MEDICAL DIRECTORNATI LAUREN M.D. Performed By: #### B MP, DIFF CBC ####[place] [id number] [place] Platelets (Bld) [#/Vol] 375 10*3/uL Normal 150-450 [facility] Comment on above: Performed By: #### B MP, DIFF CBC ####[place] [id number] RBC (Bld) [#/Vol] 3.24 10*6/uL Low 3.90-5.60 [facility] Comment on above: Performed By: #### B MP, DIFF CBC ####[address] Segmented neutrophils/100 WBC (Bld) 78 % High 50-70 [facility] Comment on above: Performed By: #### B MP, DIFF CBC ####[place] [id number] WBC (Bld) [#/Vol] 18.3 10*3/uL High 4.1-10.5 [facility] Comment on above: Performed By: #### B MP, DIFF CBC ####[place] [id number] [facility] Glucose Poct Glucometerson 0 11-12-2022 Commemt1 Glu2: Cleaned Meter Normal [facility] Comment on above: Result Comment: PERF ORMED BY:[address] [place], [place] [phone] MEDICAL DIRECTORNATI LAUREN M.D. Performed By: #### G BENJAMIN ####Point of Care testing, Glucose [Mass/Vol] 125 mg/dL Normal [facility] Comment on above: Result Comment: [place] Glucose Reference Range is dependent on time and content of last meal. Glucose of more than 200 mg/dL in a nonstressed, ambulatory subject supports the diagnosis of Diabetes Mellitus. Performed By: #### G BENJAMIN ####Point of Care testing, Glucose [Mass/Vol] 133 mg/dL Normal [facility] Comment on above: Result Comment: [place] Glucose Reference Range is dependent on time and content of last meal. Glucose of more than 200 mg/dL in a nonstressed, ambulatory subject supports the diagnosis of Diabetes Mellitus.PERFORMED BY:[place] [address] [address] [place], [place] [phone] MEDICAL DIRECTORNATI LAUREN M.D. Performed By: #### G LULS ####Point of Care testing, Commemt1 Glu2: Cleaned Meter [facility] Comment on above: Result Comment: PERF ORMED BY:[place] [address] [address] [place], [place] [phone] MEDICAL ALEKSANDAR LAUREN M.D. Performed By: #### G LULS ####Point of Care testing, Glucose [Mass/Vol] 122 mg/dL Normal [facility] Comment on above: Result Comment: [place] om Glucose Reference Range is dependent on time and content of last meal. Glucose of more than 200 mg/dL in a nonstressed, ambulatory subject supports the diagnosis of Diabetes Mellitus. Performed By: #### G LULS ####Point of Care testing, Commemt1 Glu2: Cleaned Meter [facility] Comment on above: Result Comment: PERF ORMED BY:[address] [place], [place] [phone] MEDICAL DIRECTORNATI LAUREN M.D. Performed By: #### G LULS ####Point of Care testing, Glucose [Mass/Vol] 120 mg/dL Normal [facility] Comment on above: Result Comment: [place] om Glucose Reference Range is dependent on time and content of last meal. Glucose of more than 200 mg/dL in a nonstressed, ambulatory subject supports the diagnosis of Diabetes Mellitus. Performed By: #### G LULS ####Point of Care testing, XR chest 1V portableon 11-12 XR chest 1V portable [facility] XR chest 1V portable [facility] Arterial Blood Gason 023 ABG Base Excess 6.6 mmol/L High -3.0-3.0 [facility] Comment on above: Performed By: #### A BG ####Point of Care testing, ABG Frac Inspired O2 60 % Normal [facility] Comment on above: Performed By: #### A BG ####Point of Care testing, ABG Oxygen Content 6.3 mmol/L Low 6.6-9.7 [facility] Comment on above: Performed By: #### A BG ####Point of Care testing, ABG Oxygen Saturation 91.6 % Low 95.0-100.0 [facility] Comment on above: Performed By: #### A BG ####Point of Care testing, ABG PCO2 48.7 mm[Hg] High 35.0-45.0 [facility] Comment on above: Performed By: #### A BG ####Point of Care testing, ABG PEEP 8 [facility] Comment on above: Performed By: #### A BG ####Point of Care testing, ABG PH 7.43 Normal 7.35-7.45 [facility] Comment on above: Performed By: #### A BG ####Point of Care testing, ABG PO2 63.6 mm[Hg] Low 80.0-100.0 [facility] Comment on above: Performed By: #### A BG ####Point of Care testing, ABG TV 500 mL [facility] Comment on above: Performed By: #### A BG ####Point of Care testing, CO2 [Moles/Vol] 33.3 mmol/L High 23.0-27.0 [facility] Comment on above: Performed By: #### A BG ####Point of Care testing, HCO3 (Bld) [Moles/Vol] 31.8 mmol/L High 23.0-29.0 [facility] Comment on above: Performed By: #### A BG ####Point of Care testing, Respiratory Critical [facility] Comment on above: Result Comment: Crit ical Value called on: 11/11/2022 at 05:36PERFORMED BY:[place] [address] [address] [place], [place] [phone] MEDICAL DIRECTORNATI LAUREN M.D. Performed By: #### A BG ####Point of Care testing, Set Respiratory Rate 20 [facility] Comment on above: Performed By: #### A BG ####Point of Care testing, VBG Draw Site Right Radial [facility] Comment on above: Performed By: #### A BG ####Point of Care testing, Ventilator Mode AC [facility] Comment on above: Performed By: #### A BG ####Point of Care testing, Basic Metabolic Panelon 050 Anion gap [Moles/Vol] 7.7 mmol/L Normal 6.0-15.0 [facility] Comment on above: Performed By: #### T RIG, BMP, DIFF CBC ####[place] [id number] [facility] Calcium [Mass/Vol] 7.5 mg/dL Low 8.6-10.3 [facility] Comment on above: Performed By: #### T RIG, BMP, DIFF CBC ####[place] [id number] [facility] Chloride [Moles/Vol] 99 mmol/L Normal 98-107 [facility] Comment on above: Performed By: #### T RIG, BMP, DIFF CBC ####[place] [id number] [facility] CO2 [Moles/Vol] 34.3 mmol/L High 21.0-31.0 [facility] Comment on above: Performed By: #### T RIG, BMP, DIFF CBC ####[place] [id number] [facility] Creatinine [Mass/Vol] 0.36 mg/dL Low 0.70-1.30 [facility] Comment on above: Performed By: #### T RIG, BMP, DIFF CBC ####[place] [id number] [facility] Creatinine Clr Calc Pharmacy 301.11 [facility] Comment on above: Performed By: #### T RIG, BMP, DIFF CBC ####[place] [id number] [place] GFR/1.73 sq M.predicted MDRD (S/P/Bld) [Vol rate/Area] mL/min/{1.73_m2} Normal [facility] Comment on above: Performed By: #### T RIG BMP, DIFF CBC ####[place] [id number] [facility] Glucose [Mass/Vol] 108 mg/dL High 70-100 [facility] Comment on above: Result Comment: [facility] Glucose Reference Range is dependent on time and content of last meal. Glucose of more than 200 mg/dL in a nonstressed, ambulatory subject supports the diagnosis of Diabetes Mellitus. ADA recommended reference range Performed By: #### T RIG BMP, DIFF CBC ####[place] [id number] [facility] Potassium [Moles/Vol] 4.0 mmol/L Normal 3.5-5.1 [facility] Comment on above: Performed By: #### T RIG BMP, DIFF CBC ####[address] Sodium [Moles/Vol] 137 mmol/L Normal 136-145 [facility] Comment on above: Performed By: #### T RIG BMP, DIFF CBC ####[place] [id number] [facility] Urea nitrogen [Mass/Vol] 14 mg/dL Normal 7-25 [facility] Comment on above: Performed By: #### T RIG BMP, DIFF CBC ####[place] [id number] [place] Diff and CBCon 11-11-2022 Anisocytosis Ql (Bld) Slight Normal [facility] Comment on above: Performed By: #### T RIG BMP, DIFF CBC ####[place] [id number] [place] Eosinophils/100 WBC (Bld) 2 % Normal 1-3 [facility] Comment on above: Performed By: #### T RIG, BMP, DIFF CBC ####[place] [id number] [facility] Erythrocyte distribution width (RBC) [Ratio] 14.3 % Normal 12.0-14.8 [facility] Comment on above: Performed By: #### T RIG, BMP, DIFF CBC ####[address] Hematocrit (Bld) [Volume fraction] 31.2 % Low 38.8-50.0 [facility] Comment on above: Performed By: #### T RIG, BMP, DIFF CBC ####[address] Hemoglobin (Bld) [Mass/Vol] 10.2 g/dL Low 13.0-17.0 [facility] Comment on above: Performed By: #### T RIG BMP, DIFF CBC ####[address] Hypochromasia Moderate Normal [facility] Comment on above: Performed By: #### T RIG BMP, DIFF CBC ####[address] Lymphocytes/100 WBC (Bld) 11 % Low 18-42 [facility] Comment on above: Performed By: #### T RIG BMP, DIFF CBC ####[address] MCH (RBC) [Entitic mass] 29.9 pg Normal 27.5-35.2 [facility] Comment on above: Performed By: #### T RIG, BMP, DIFF CBC ####[address] MCV (RBC) [Entitic vol] 91.8 fL Normal 83.5-101 [facility] Comment on above: Performed By: #### T RIG, BMP, DIFF CBC ####[address] Mean Corpuscular HGB Conc 32.6 g/dL Normal 32.5-35.6 [facility] Comment on above: Performed By: #### T RIG, BMP, DIFF CBC ####[address] Metamyelocytes 2 % High 0-0 [facility] Comment on above: Performed By: #### T RIG, BMP, DIFF CBC ####[address] Monocytes/100 WBC (Bld) 6 % Normal 2-11 [facility] Comment on above: Performed By: #### T RIG, BMP, DIFF CBC ####[address] Myelocytes 1 % High 0-0 [facility] Comment on above: Performed By: #### T RIG, BMP, DIFF CBC ####[address] Platelet Estimate Normal Normal Normal [facility] Comment on above: Performed By: #### T RIG, BMP, DIFF CBC ####[address] Platelet mean volume (Bld) [Entitic vol] 6.8 fL Normal 6.6-10.1 [facility] Comment on above: Result Comment: PERF ORMED BY:[address] [place], [place] [phone] MEDICAL ALEKSANDAR LAUREN M.D. Performed By: #### T RIG, BMP, DIFF CBC ####[place] [id number] [facility] Platelet Morphology Normal Normal Normal [facility] Comment on above: Result Comment: PERF ORMED BY:[address] [place], [place] [phone] MEDICAL DIRECTORNATI LAUREN M.D. Performed By: #### T RIG, BMP, DIFF CBC ####[address] Platelets (Bld) [#/Vol] 401 10*3/uL Normal 150-450 [facility] Comment on above: Performed By: #### T RIG, BMP, DIFF CBC ####[address] [place] [address] [facility] Polychromasia Slight Normal [facility] Comment on above: Performed By: #### T RIG BMP, DIFF CBC ####[place] [id number] [facility] RBC (Bld) [#/Vol] 3.40 10*6/uL Low 3.90-5.60 [facility] Comment on above: Performed By: #### T RIG BMP, DIFF CBC ####[place] [id number] [facility] Segmented neutrophils/100 WBC (Bld) 79 % High 50-70 [facility] Comment on above: Performed By: #### T BLACK BMP, DIFF CBC ####[address] WBC (Bld) [#/Vol] 19.1 10*3/uL High 4.1-10.5 [facility] Comment on above: Performed By: #### T KERRI CLEANING, DIFF CBC ####[place] [id number] [facility] Glucose Poct Glucometerson 0 11-11-2022 Glucose [Mass/Vol] 156 mg/dL [facility] Comment on above: Result Comment: [place] Glucose Reference Range is dependent on time and content of last meal. Glucose of more than 200 mg/dL in a nonstressed, ambulatory subject supports the diagnosis of Diabetes Mellitus.PERFORMED BY:[place] [address] [address] [place], [place] [phone] MEDICAL DIRECTORNATI LAUREN M.D. Performed By: #### G LULS ####Point of Care testing, Commemt1 Glu2: Cleaned Meter [facility] Comment on above: Performed By: #### G LULS ####Point of Care testing, Commemt2 SLIDING SCALE COVERA Normal [facility] Comment on above: Result Comment: PERF ORMED BY:[place] [address] [address] [place], [place] [phone] MEDICAL DIRECTORNATI LAUREN M.D. Performed By: #### G LULS ####Point of Care testing, Glucose [Mass/Vol] 158 mg/dL Normal [facility] Comment on above: Result Comment: [place] om Glucose Reference Range is dependent on time and content of last meal. Glucose of more than 200 mg/dL in a nonstressed, ambulatory subject supports the diagnosis of Diabetes Mellitus. Performed By: #### G LULS ####Point of Care testing, Glucose [Mass/Vol] 97 mg/dL Normal [facility] Comment on above: Result Comment: [place] om Glucose Reference Range is dependent on time and content of last meal. Glucose of more than 200 mg/dL in a nonstressed, ambulatory subject supports the diagnosis of Diabetes Mellitus.PERFORMED BY:[place] [address] [place], [place] [phone] MEDICAL DIRECTORNATI LAUREN M.D. Performed By: #### G LULS ####Point of Care testing, Magnesiumon 11-11-2022 Magnesium [Mass/Vol] 2.2 mg/dL Normal 1.9-2.7 [facility] Comment on above: Order Comment: Comme nt please run off blood drawn this morning Result Comment: PERF ORMED BY:[place] [address] [place] [place], [place] [phone] MEDICAL DIRECTORNATI LAUREN M.D. Performed By: #### M G ####[facility] [place] [address] [facility] No Panel InformationOrdered By: Rubi Ramos on 11-11-2022 Bedside Glucose #2 Comment Sliding scale covera [facility] Triglycerideson 11-11-2022 Triglyceride [Mass/Vol] 143 mg/dL Normal 0-149 [facility] Comment on above: Result Comment: TRIG ATP III CLASSIFICATION TRIG less than 150 mg/dL Normal TRIG 150-199 mg/dL Borderline high TRIG 200-500 mg/dL High TRIG greater than 500 mg/dL Very high Standard traceable to the Center for Disease Conrtrol and Prevention (CDC) test method.PERFORMED BY:[place] [address] [address] [place] [place] [phone] MEDICAL DIRECTORNATI LAUREN M.D. Performed By: #### T RIG, BMP, DIFF CBC ####[facility] [id number] [place] [address] [facility] XR chest 1V portableon 11-11 XR chest 1V portable Normal [facility] Arterial Blood Gason 023 ABG Base Excess 8.6 mmol/L High -3.0-3.0 [facility] Comment on above: Performed By: #### A BG ####Point of Care testing, ABG Frac Inspired O2 40 % [facility] Comment on above: Performed By: #### A BG ####Point of Care testing, ABG Oxygen Content 6.6 mmol/L Normal 6.6-9.7 [facility] Comment on above: Performed By: #### A BG ####Point of Care testing, ABG Oxygen Saturation 92.0 % Low 95.0-100.0 [facility] Comment on above: Performed By: #### A BG ####Point of Care testing, ABG PCO2 47.0 mm[Hg] High 35.0-45.0 [facility] Comment on above: Performed By: #### A BG ####Point of Care testing, ABG PEEP 6 [facility] Comment on above: Performed By: #### A BG ####Point of Care testing, ABG PH 7.47 High 7.35-7.45 [facility] Comment on above: Performed By: #### A BG ####Point of Care testing, ABG PO2 61.7 mm[Hg] Low 80.0-100.0 [facility] Comment on above: Performed By: #### A BG ####Point of Care testing, ABG TV 500 mL [facility] Comment on above: Performed By: #### A BG ####Point of Care testing, CO2 [Moles/Vol] 34.8 mmol/L High 23.0-27.0 [facility] Comment on above: Performed By: #### A BG ####Point of Care testing, HCO3 (Bld) [Moles/Vol] 33.4 mmol/L High 23.0-29.0 [facility] Comment on above: Performed By: #### A BG ####Point of Care testing, Respiratory Critical [facility] Comment on above: Result Comment: Crit ical Value called on: 11/10/2022 at 05:16PERFORMED BY:[place] [address] [place], [place] [phone] MEDICAL DIRECTORNATI LAUREN M.D. Performed By: #### A BG ####Point of Care testing, Set Respiratory Rate 20 [facility] Comment on above: Performed By: #### A BG ####Point of Care testing, VBG Draw Site Left Brachial [facility] Comment on above: Performed By: #### A BG ####Point of Care testing, Ventilator Mode AC [facility] Comment on above: Performed By: #### A BG ####Point of Care testing, Basic Metabolic Panelon Anion gap [Moles/Vol] 7.5 mmol/L Normal 6.0-15.0 [facility] Comment on above: Performed By: #### D IFF CBC, BMP ####[facility] Dpo6960 [place] [address] [facility] Calcium [Mass/Vol] 7.5 mg/dL Low 8.6-10.3 [facility] Comment on above: Performed By: #### D IFF CBC, BMP ####[facility] Mfe5800 [place] [address] [place] Chloride [Moles/Vol] 100 mmol/L Normal 98-107 [facility] Comment on above: Performed By: #### D IFF CBC, BMP ####[facility] Tti[address]227 [place] [address] [place] CO2 [Moles/Vol] 34.4 mmol/L High 21.0-31.0 [facility] Comment on above: Performed By: #### D IFF CBC, BMP ####[facility] Iav5071 [place] [address] [facility] Creatinine [Mass/Vol] 0.40 mg/dL Low 0.70-1.30 [facility] Comment on above: Performed By: #### D IFF CBC, BMP ####[facility] Olj6372 [place] [address] [place] Creatinine Clr Calc Pharmacy 271.94 [facility] Comment on above: Result Comment: PERF ORMED BY:[address] [place], [place] [phone] MEDICAL DIRECTORNATI LAUREN M.D. Performed By: #### D IFF CBC, BMP ####[place] [address] [place] [address] [place] GFR/1.73 sq M.predicted MDRD (S/P/Bld) [Vol rate/Area] mL/min/{1.73_m2} [facility] Comment on above: Performed By: #### D IFF CBC, BMP ####[place] [address] [place] [address] [facility] Glucose [Mass/Vol] 111 mg/dL High 70-100 [facility] Comment on above: Result Comment: [place] Glucose Reference Range is dependent on time and content of last meal. Glucose of more than 200 mg/dL in a nonstressed, ambulatory subject supports the diagnosis of Diabetes Mellitus. ADA recommended reference range Performed By: #### D IFF CBC, BMP ####[facility] Cug8699 [place] [address] [place] Potassium [Moles/Vol] 3.9 mmol/L Normal 3.5-5.1 [facility] Comment on above: Performed By: #### D IFF CBC, BMP ####[facility] Ifp0008 [place] [address] [facility] Sodium [Moles/Vol] 138 mmol/L Normal 136-145 [facility] Comment on above: Performed By: #### D IFF CBC, BMP ####[facility] Vnf[address] Urea nitrogen [Mass/Vol] 19 mg/dL Normal 7-25 [facility] Comment on above: Performed By: #### D IFF CBC, BMP ####[address] Blood Cultureon 11-10-2022 Bacteria identified Cx Nom (Bld) NO GROWTH 5 DAYS PERFORMED BY: [facility] [address] [place] [address] PATHOLOGIST WASHER CARCASS NATI LAUREN M.D. [facility] Comment on above: Performed By: #### C UBLD ####[address] Diff and CBCon 11-10-2022 Erythrocyte distribution width (RBC) [Ratio] 13.9 % Normal 12.0-14.8 [facility] Comment on above: Performed By: #### D IFF CBC, BMP ####[address] Hematocrit (Bld) [Volume fraction] 30.5 % Low 38.8-50.0 [facility] Comment on above: Performed By: #### D IFF CBC, BMP ####[address] Hemoglobin (Bld) [Mass/Vol] 10.0 g/dL Low 13.0-17.0 [facility] Comment on above: Performed By: #### D IFF CBC, BMP ####[address] Hypochromasia Moderate Normal [facility] Comment on above: Performed By: #### D IFF CBC, BMP ####[address] MCH (RBC) [Entitic mass] 29.9 pg Normal 27.5-35.2 [facility] Comment on above: Performed By: #### D IFF CBC, BMP ####[address] MCV (RBC) [Entitic vol] 91.2 fL Normal 83.5-101 [facility] Comment on above: Performed By: #### D IFF CBC, BMP ####[place] [address] [place] [address] [facility] Mean Corpuscular HGB Conc 32.8 g/dL Normal 32.5-35.6 [facility] Comment on above: Performed By: #### D IFF CBC, BMP ####[place] [address] [place] [address] [facility] Platelet Estimate Normal Normal Normal [facility] Comment on above: Performed By: #### D IFF CBC, BMP ####[place] [address] [place] [address] [facility] Platelet mean volume (Bld) [Entitic vol] 6.9 fL Normal 6.6-10.1 [facility] Comment on above: Result Comment: PERF ORMED BY:[address] [place], [place] [phone] MEDICAL DIRECTORNATI LAUREN M.D. Performed By: #### D IFF CBC, BMP ####[address] [address] [facility] Platelet Morphology Normal Normal Normal [facility] Comment on above: Result Comment: PERF ORMED BY:[address] [place], [place] [phone] MEDICAL DIRECTORNATI LAUREN M.D. Performed By: #### D IFF CBC, BMP ####[address] [address] [facility] Platelets (Bld) [#/Vol] 375 10*3/uL Normal 150-450 [facility] Comment on above: Performed By: #### D IFF CBC, BMP ####[address] [address] [facility] RBC (Bld) [#/Vol] 3.34 10*6/uL Low 3.90-5.60 [facility] Comment on above: Performed By: #### D IFF CBC, BMP ####[facility] Cqw2700 [place] [address] [facility] Stomatocytes Slight Normal [facility] Comment on above: Performed By: #### D IFF CBC, BMP ####[facility] Lzi3687 [place] [address] [facility] Target Cells Slight Normal [facility] Comment on above: Performed By: #### D IFF CBC, BMP ####[place] [address] [place] [address] [facility] WBC (Bld) [#/Vol] 14.4 10*3/uL High 4.1-10.5 [facility] Comment on above: Performed By: #### D IFF CBC, BMP ####[facility] Qgs6820 [place] [address] [facility] Dipstick and Microscopicon 0 11-10-2022 Appearance (U) Clear Normal Clear [facility] Comment on above: Order Comment: Name Collection Type:: Jones Catheter Performed By: #### A DDONUAPLUS ####[address] [address] [facility] Bacteria,Urine None Seen Normal None Seen [facility] Comment on above: Order Comment: Name Collection Type:: Jones Catheter Performed By: #### A DDONUAPLUS ####[address] [address] [facility] Bilirubin,Urine Negative Normal Negative [facility] Comment on above: Order Comment: Name Collection Type:: Jones Catheter Performed By: #### A DDONUAPLUS ####[address] [address] [facility] Color (U) Yellow Normal Yellow [facility] Comment on above: Order Comment: Name Collection Type:: Jones Catheter Performed By: #### A DDONUAPLUS ####[address] [address] [facility] Glucose Ql (U) Normal Normal Normal [facility] Comment on above: Order Comment: Name Collection Type:: Jones Catheter Performed By: #### A DDONUAPLUS ####[address] [address] [facility] Hyaline Casts,Urine None Seen Normal 0-8 [facility] Comment on above: Order Comment: Name Collection Type:: Jones Catheter Result Comment: PERF ORMED BY:[place] [address] [place] [place], [place] [phone] MEDICAL DIRECTORNATI LAUREN M.D. Performed By: #### A DDONUAPLUS ####[place] [id number] [facility] Ketones Ql (U) Negative Normal Negative [facility] Comment on above: Order Comment: Name Collection Type:: Jones Catheter Performed By: #### A DDONUAPLUS ####[place] [id number] [facility] Leukocyte esterase Test strip Ql (U) Negative Normal Negative [facility] Comment on above: Order Comment: Name Collection Type:: Jones Catheter Performed By: #### A DDONUAPLUS ####[place] [id number] [facility] Nitrite,Urine Negative Normal Negative [facility] Comment on above: Order Comment: Name Collection Type:: Jones Catheter Performed By: #### A DDONUAPLUS ####[place] [id number] [facility] Occult Blood,Urine Trace High Negative [facility] Comment on above: Order Comment: Name Collection Type:: Jones Catheter Result Comment: PERF ORMED BY:[place] [address] [address] [place], [place] [phone] MEDICAL DIRECTORNATI LAUREN M.D. Performed By: #### A DDONUAPLUS ####[place] [id number] [facility] pH (U) 7.5 [pH] Normal 5.0-9.0 [facility] Comment on above: Order Comment: Name Collection Type:: Jones Catheter Performed By: #### A DDONUAPLUS ####[place] [id number] [facility] Protein,Urine Negative Normal Negative [facility] Comment on above: Order Comment: Name Collection Type:: Jones Catheter Performed By: #### A DDONUAPLUS ####[address] [address] [facility] RBC,Urine 10-19 High 0-4 [facility] Comment on above: Order Comment: Name Collection Type:: Jones Catheter Performed By: #### A DDONUAPLUS ####[address] [address] [facility] Specificy Wing,Urine 1.016 Normal 1.001-1.03 0 [facility] Comment on above: Order Comment: Name Collection Type:: Jones Catheter Performed By: #### A DDONUAPLUS ####[address] [address] [facility] Squamous Epithelial Cell,Urine 0-1 Normal 0-2 [facility] Comment on above: Order Comment: Name Collection Type:: Jones Catheter Performed By: #### A DDONUAPLUS ####[address] [address] [facility] Urobilinogen,Urine Normal Normal Normal [facility] Comment on above: Order Comment: Name Collection Type:: Jones Catheter Performed By: #### A DDONUAPLUS ####[address] [address] [facility] WBC,Urine 3-4 Normal 0-4 [facility] Comment on above: Order Comment: Name Collection Type:: Jones Catheter Performed By: #### A DDONUAPLUS ####[address] [address] [facility] Glucose Poct Glucometerson 0 11-10-2022 Glucose [Mass/Vol] 147 mg/dL Normal [facility] Comment on above: Result Comment: [place] Glucose Reference Range is dependent on time and content of last meal. Glucose of more than 200 mg/dL in a nonstressed, ambulatory subject supports the diagnosis of Diabetes Mellitus.PERFORMED BY:[address] [place], [place] [phone] MEDICAL ALEKSANDAR LAUREN M.D. Performed By: #### G LUBETY ####Point of Care testing, Glucose [Mass/Vol] 129 mg/dL Normal [facility] Comment on above: Result Comment: [facility] Glucose Reference Range is dependent on time and content of last meal. Glucose of more than 200 mg/dL in a nonstressed, ambulatory subject supports the diagnosis of Diabetes Mellitus.PERFORMED BY:[address] [place], [place] [phone] MEDICAL DIRECTORNATI LAUREN M.D. Performed By: #### G LUBETY ####Point of Care testing, Glucose [Mass/Vol] 148 mg/dL Normal [facility] Comment on above: Result Comment: [facility] Glucose Reference Range is dependent on time and content of last meal. Glucose of more than 200 mg/dL in a nonstressed, ambulatory subject supports the diagnosis of Diabetes Mellitus.PERFORMED BY:[address] [place], [place] [phone] MEDICAL DIRECTORNATI LAUREN M.D. Performed By: #### G LUBETY ####Point of Care testing, XR chest 1V portableon 11-10 XR chest 1V portable Normal [facility] XR chest 1V portable Normal [facility] Arterial Blood Gason 023 ABG Base Excess 5.4 mmol/L High -3.0-3.0 [facility] Comment on above: Performed By: #### A BG ####Point of Care testing, ABG Frac Inspired O2 40 % [facility] Comment on above: Performed By: #### A BG ####Point of Care testing, ABG Oxygen Content 6.9 mmol/L Normal 6.6-9.7 [facility] Comment on above: Performed By: #### A BG ####Point of Care testing, ABG Oxygen Saturation 95.7 % Normal 95.0-100.0 [facility] Comment on above: Performed By: #### A BG ####Point of Care testing, ABG PCO2 52.4 mm[Hg] Off scale high 35.0-45.0 [facility] Comment on above: Performed By: #### A BG ####Point of Care testing, ABG PEEP 9 [facility] Comment on above: Performed By: #### A BG ####Point of Care testing, ABG PH 7.40 Normal 7.35-7.45 [facility] Comment on above: Performed By: #### A BG ####Point of Care testing, ABG PO2 82.4 mm[Hg] Normal 80.0-100.0 [facility] Comment on above: Performed By: #### A BG ####Point of Care testing, ABG TV 500 mL [facility] Comment on above: Performed By: #### A BG ####Point of Care testing, CO2 [Moles/Vol] 33.0 mmol/L High 23.0-27.0 [facility] Comment on above: Performed By: #### A BG ####Point of Care testing, HCO3 (Bld) [Moles/Vol] 31.4 mmol/L High 23.0-29.0 [facility] Comment on above: Performed By: #### A BG ####Point of Care testing, Respiratory Critical [facility] Comment on above: Result Comment: Crit ical Value called on: 11/09/2022 at 05:00PERFORMED BY:[place] [address] [address] [place], [place] [phone] MEDICAL DIRECTORNATI LAUREN M.D. Performed By: #### A BG ####Point of Care testing, Set Respiratory Rate 20 [facility] Comment on above: Performed By: #### A BG ####Point of Care testing, VBG Draw Site Right Radial [facility] Comment on above: Performed By: #### A BG ####Point of Care testing, Ventilator Mode AC [facility] Comment on above: Performed By: #### A BG ####Point of Care testing, Basic Metabolic Panel Anion gap [Moles/Vol] 9.0 mmol/L Normal 6.0-15.0 [facility] Comment on above: Performed By: #### B MP, CBC ####[place] [place] [address] [facility] Calcium [Mass/Vol] 7.7 mg/dL Low 8.6-10.3 [facility] Comment on above: Performed By: #### B MP, CBC ####[place] [address] [place] [address] [facility] Chloride [Moles/Vol] 99 mmol/L Normal 98-107 [facility] Comment on above: Performed By: #### B MP, CBC ####[place] [address] [place] [address] [facility] CO2 [Moles/Vol] 32.5 mmol/L High 21.0-31.0 [facility] Comment on above: Performed By: #### B MP, CBC ####[address] [address] [facility] Creatinine [Mass/Vol] 0.40 mg/dL Low 0.70-1.30 [facility] Comment on above: Performed By: #### B MP, CBC ####[place] [address] [place] [address] [place] Creatinine Clr Calc Pharmacy 270.64 [facility] Comment on above: Result Comment: PERF ORMED BY:[address] [place], [place] [phone] MEDICAL ALEKSANDAR LAUREN M.D. Performed By: #### B MP, CBC ####[address] [address] [place] GFR/1.73 sq M.predicted MDRD (S/P/Bld) [Vol rate/Area] mL/min/{1.73_m2} [facility] Comment on above: Performed By: #### B MP, CBC ####[address] [address] [place] Glucose [Mass/Vol] 160 mg/dL High 70-100 [facility] Comment on above: Result Comment: [facility] Glucose Reference Range is dependent on time and content of last meal. Glucose of more than 200 mg/dL in a nonstressed, ambulatory subject supports the diagnosis of Diabetes Mellitus. ADA recommended reference range Performed By: #### B MP, CBC ####[facility] F[address]396 [place] [address] [facility] Potassium [Moles/Vol] 4.5 mmol/L Normal 3.5-5.1 [facility] Comment on above: Performed By: #### B MP, CBC ####[facility] [place] [address] [facility] Sodium [Moles/Vol] 136 mmol/L Normal 136-145 [facility] Comment on above: Performed By: #### B MP, CBC ####[facility] [place] [address] [facility] Urea nitrogen [Mass/Vol] 19 mg/dL Normal 7-25 [facility] Comment on above: Performed By: #### B MP, CBC ####[place] [place] [address] [facility] Complete Blood Count Auto Di ffon 11-09-2022 Basophils (Bld) [#/Vol] 0.0 10*3/uL Normal 0.0-0.2 [facility] Comment on above: Result Comment: PERF ORMED BY:[address] [place], [place] [phone] MEDICAL DIRECTORNATI LAUREN M.D. Performed By: #### B MP, CBC ####[address] [address] [facility] Basophils/100 WBC (Bld) 0.1 % Normal . [facility] Comment on above: Performed By: #### B MP, CBC ####[facility] [address] [place] [address] [facility] Eosinophils (Bld) [#/Vol] 0.0 10*3/uL Normal 0.0-0.45 [facility] Comment on above: Performed By: #### B MP, CBC ####[address] Eosinophils/100 WBC (Bld) 0.0 % Normal . [facility] Comment on above: Performed By: #### B MP, CBC ####[address] Erythrocyte distribution width (RBC) [Ratio] 14.2 % Normal 12.0-14.8 [facility] Comment on above: Performed By: #### B MP, CBC ####[address] Hematocrit (Bld) [Volume fraction] 31.0 % Low 38.8-50.0 [facility] Comment on above: Performed By: #### B MP, CBC ####[address] Hemoglobin (Bld) [Mass/Vol] 10.3 g/dL Low 13.0-17.0 [facility] Comment on above: Performed By: #### B MP, CBC ####[address] Lymphocytes (Bld) [#/Vol] 0.7 10*3/uL Low 1.00-4.8 [facility] Comment on above: Performed By: #### B MP, CBC ####[address] Lymphocytes/100 WBC (Bld) 4.6 % Normal . [facility] Comment on above: Performed By: #### B MP, CBC ####[address] MCH (RBC) [Entitic mass] 30.4 pg Normal 27.5-35.2 [facility] Comment on above: Performed By: #### B MP, CBC ####[address] MCV (RBC) [Entitic vol] 91.1 fL Normal 83.5-101 [facility] Comment on above: Performed By: #### B MP, CBC ####[address] [place] [address] [facility] Mean Corpuscular HGB Conc 33.4 g/dL Normal 32.5-35.6 [facility] Comment on above: Performed By: #### B MP, CBC ####[place] [id number] [facility] Monocytes (Bld) [#/Vol] 0.8 10*3/uL Normal 0.0-0.8 [facility] Comment on above: Performed By: #### B MP, CBC ####[place] [id number] [facility] Monocytes/100 WBC (Bld) 5.2 % Normal . [facility] Comment on above: Performed By: #### B MP, CBC ####[address] Neutrophils (Bld) [#/Vol] 13.1 10*3/uL High 1.8-7.7 [facility] Comment on above: Performed By: #### B MP, CBC ####[place] [id number] [facility] Neutrophils/100 WBC (Bld) 90.1 % Normal . [facility] Comment on above: Performed By: #### B MP, CBC ####[place] [id number] [facility] NRBC% 0.1 /100{WBC} Normal 0-0.5 [facility] Comment on above: Performed By: #### B MP, CBC ####[place] [id number] [facility] Platelet mean volume (Bld) [Entitic vol] 7.0 fL Normal 6.6-10.1 [facility] Comment on above: Performed By: #### B MP, CBC ####[place] [id number] [facility] Platelets (Bld) [#/Vol] 408 10*3/uL Normal 150-450 [facility] Comment on above: Performed By: #### B MP, CBC ####[address] [place] [address] [facility] RBC (Bld) [#/Vol] 3.40 10*6/uL Low 3.90-5.60 [facility] Comment on above: Performed By: #### B MP, CBC ####[place] [address] [place] [address] [facility] WBC (Bld) [#/Vol] 14.6 10*3/uL High 4.1-10.5 [facility] Comment on above: Performed By: #### B MP, CBC ####[address] [address] [facility] Glucose Poct Glucometerson 0 - Commemt1 Glu2: Cleaned Meter [facility] Comment on above: Result Comment: PERF ORMED BY:[address] [place], [place] [phone] MEDICAL DIRECTORNATI LAUREN M.D. Performed By: #### G LULS ####Point of Care testing, Glucose [Mass/Vol] 122 mg/dL Normal [facility] Comment on above: Result Comment: [place] Glucose Reference Range is dependent on time and content of last meal. Glucose of more than 200 mg/dL in a nonstressed, ambulatory subject supports the diagnosis of Diabetes Mellitus. Performed By: #### G LULS ####Point of Care testing, Commemt1 Glu2: Cleaned Meter Normal [facility] Comment on above: Result Comment: PERF ORMED BY:[address] [place], [place] [phone] MEDICAL DIRECTORNATI LAUREN M.D. Performed By: #### G LULS ####Point of Care testing, Glucose [Mass/Vol] 176 mg/dL Normal [facility] Comment on above: Result Comment: [place] Glucose Reference Range is dependent on time and content of last meal. Glucose of more than 200 mg/dL in a nonstressed, ambulatory subject supports the diagnosis of Diabetes Mellitus. Performed By: #### G LULS ####Point of Care testing, Commemt1 Glu2: Cleaned Meter Normal [facility] Comment on above: Result Comment: PERF ORMED BY:[place] [address] [address] [place], [place] [phone] MEDICAL ALEKSANDAR LAUREN M.D. Performed By: #### G LULS ####Point of Care testing, Glucose [Mass/Vol] 149 mg/dL Normal [facility] Comment on above: Result Comment: [place] om Glucose Reference Range is dependent on time and content of last meal. Glucose of more than 200 mg/dL in a nonstressed, ambulatory subject supports the diagnosis of Diabetes Mellitus. Performed By: #### G LULS ####Point of Care testing, Commemt1 Glu2: Cleaned Meter [facility] Comment on above: Result Comment: PERF ORMED BY:[address] [place], [place] [phone] MEDICAL ALEKSANDAR LAUREN M.D. Performed By: #### G LULS ####Point of Care testing, Glucose [Mass/Vol] 159 mg/dL Normal [facility] Comment on above: Result Comment: [place] om Glucose Reference Range is dependent on time and content of last meal. Glucose of more than 200 mg/dL in a nonstressed, ambulatory subject supports the diagnosis of Diabetes Mellitus. Performed By: #### G LULS ####Point of Care testing, Triglycerideson 11-09-2022 Triglyceride [Mass/Vol] 392 mg/dL High 0-149 [facility] Comment on above: Result Comment: TRIG ATP III CLASSIFICATION TRIG less than 150 mg/dL Normal TRIG 150-199 mg/dL Borderline high TRIG 200-500 mg/dL High TRIG greater than 500 mg/dL Very high Standard traceable to the Center for Disease Conrtrol and Prevention (CDC) test method.PERFORMED BY:[place] [address] [address] [place], [place] [phone] MEDICAL ALEKSANDAR LAUREN M.D. Performed By: #### T RIG ####[address] [address] [facility] XR chest 1V portableon 11-09 XR chest 1V portable Normal [facility] XR chest 1V portable Normal [facility] Arterial Blood Gason 023 ABG Base Excess 4.1 mmol/L High -3.0-3.0 [facility] Comment on above: Performed By: #### A BG ####Point of Care testing, ABG Frac Inspired O2 80 % [facility] Comment on above: Performed By: #### A BG ####Point of Care testing, ABG Oxygen Content 7.5 mmol/L Normal 6.6-9.7 [facility] Comment on above: Performed By: #### A BG ####Point of Care testing, ABG Oxygen Saturation 97.9 % Normal 95.0-100.0 [facility] Comment on above: Performed By: #### A BG ####Point of Care testing, ABG PCO2 55.6 mm[Hg] Off scale high 35.0-45.0 [facility] Comment on above: Performed By: #### A BG ####Point of Care testing, ABG PEEP 12 [facility] Comment on above: Performed By: #### A BG ####Point of Care testing, ABG PH 7.36 Normal 7.35-7.45 [facility] Comment on above: Performed By: #### A BG ####Point of Care testing, ABG PO2 111.2 mm[Hg] High 80.0-100.0 [facility] Comment on above: Performed By: #### A BG ####Point of Care testing, ABG TV 500 mL [facility] Comment on above: Performed By: #### A BG ####Point of Care testing, CO2 [Moles/Vol] 32.5 mmol/L High 23.0-27.0 [facility] Comment on above: Performed By: #### A BG ####Point of Care testing, HCO3 (Bld) [Moles/Vol] 30.8 mmol/L High 23.0-29.0 [facility] Comment on above: Performed By: #### A BG ####Point of Care testing, Respiratory Critical [facility] Comment on above: Result Comment: Crit ical Value called on: 11/08/2022 at 05:00PERFORMED BY:[facility] [place], [place] [phone] MEDICAL DIRECTORNATI LAUREN M.D. Performed By: #### A BG ####Point of Care testing, Set Respiratory Rate 20 [facility] Comment on above: Performed By: #### A BG ####Point of Care testing, VBG Draw Site Left Radial [facility] Comment on above: Performed By: #### A BG ####Point of Care testing, Ventilator Mode AC [facility] Comment on above: Performed By: #### A BG ####Point of Care testing, Basic Metabolic Panelon 05 Anion gap [Moles/Vol] 10.0 mmol/L Normal 6.0-15.0 [facility] Comment on above: Performed By: #### B MP, SCAN CBC ####[facility] [address] [place] [address] [place] Calcium [Mass/Vol] 8.2 mg/dL Low 8.6-10.3 [facility] Comment on above: Performed By: #### B MP, SCAN CBC ####[facility] Tmm9422 [place] [address] [place] Chloride [Moles/Vol] 99 mmol/L Normal 98-107 [facility] Comment on above: Performed By: #### B MP, SCAN CBC ####[facility] Qdc8841 [place] [address] [place] CO2 [Moles/Vol] 29.8 mmol/L Normal 21.0-31.0 [facility] Comment on above: Performed By: #### B MP, SCAN CBC ####[facility] Vqr3613 [place] [address] [place] Creatinine [Mass/Vol] 0.43 mg/dL Low 0.70-1.30 [facility] Comment on above: Performed By: #### B MP, SCAN CBC ####[facility] Aha[address]751 [place] [address] [place] Creatinine Clr Calc Pharmacy 251.76 Normal [facility] Comment on above: Result Comment: PERF ORMED BY:[place] [address] [address] [place], [place] [phone] MEDICAL ALEKSANDAR LAUREN M.D. Performed By: #### B MP, SCAN CBC ####[facility] Ges[address] [place] [address] [place] GFR/1.73 sq M.predicted MDRD (S/P/Bld) [Vol rate/Area] mL/min/{1.73_m2} Normal [facility] Comment on above: Performed By: #### B MP, SCAN CBC ####[facility] Gfm4601 [place] [address] [place] Glucose [Mass/Vol] 140 mg/dL High 70-100 [facility] Comment on above: Result Comment: [facility] Glucose Reference Range is dependent on time and content of last meal. Glucose of more than 200 mg/dL in a nonstressed, ambulatory subject supports the diagnosis of Diabetes Mellitus. ADA recommended reference range Performed By: #### B MP, SCAN CBC ####[facility] Gxd4465 [place] [address] [facility] Potassium [Moles/Vol] 4.8 mmol/L Normal 3.5-5.1 [facility] Comment on above: Performed By: #### B MP, SCAN CBC ####[facility] [place] [address] [place] Sodium [Moles/Vol] 134 mmol/L Low 136-145 [facility] Comment on above: Performed By: #### B MP, SCAN CBC ####[facility] Pvu4647 [place] [address] [facility] Urea nitrogen [Mass/Vol] 22 mg/dL Normal 7-25 [facility] Comment on above: Performed By: #### B MP, SCAN CBC ####[facility] Zfp5348 [place] [address] [facility] Glucose Poct Glucometerson 0 11-08-2022 Glucose [Mass/Vol] 135 mg/dL Normal [facility] Comment on above: Result Comment: [facility] Glucose Reference Range is dependent on time and content of last meal. Glucose of more than 200 mg/dL in a nonstressed, ambulatory subject supports the diagnosis of Diabetes Mellitus.PERFORMED BY:[facility] [place], [place] [phone] MEDICAL DIRECTORNATI LAUREN M.D. Performed By: #### G LULS ####Point of Care testing, HIV 1/O/2 Antigen/Antibodyon 11-08-2022 HIV Screen 4th Generation Non-Reactive Normal Non Reactive [facility] Comment on above: Order Comment: Dr. christopher gil putting in a chest tube Result Comment: HIV Negative HIV-1/HIV-2 antibodies and HIV-1 p24 antigen were NOT detected. There is no laboratory evidence of HIV infection. Performed at: [facility] [place] [address] [place], [place] [id number] Garde Manger: Crow Frost PhD, Phone: [phone] BY:[place] [address] [address] [place], [place] [phone] MEDICAL DIRECTORNATI LAUREN M.D. Performed By: #### H IV SCREEN ####[facility] , HIV 1 and HIV-2 antibody ass ay with HIV-1 p24 antigen detectionOrdered By: Sanjay Holt on 11-08-2022 HIV 1+2 Ab+HIV1 p24 Ag IA Ql Non-Reactive Non Reactive [facility] Comment on above: HIV NegativeHIV-1/HI V-2 antibodies and HIV-1 p24 antigen were NOTdetected. There is no laboratory evidence of HIV infection.Performed at: [facility] [address] [id number] Director: Crow Frost PhD, Phone: [phone] Scan and CBCon 11-08-2022 Basophils (Bld) [#/Vol] 0.0 10*3/uL Normal 0.0-0.2 [facility] Comment on above: Performed By: #### B MP, SCAN CBC ####[place] [id number] [facility] Basophils/100 WBC (Bld) 0.2 % Normal . [facility] Comment on above: Performed By: #### B MP, SCAN CBC ####[place] [id number] [facility] Eosinophils (Bld) [#/Vol] 0.0 10*3/uL Normal 0.0-0.45 [facility] Comment on above: Performed By: #### B MP, SCAN CBC ####[address] Eosinophils/100 WBC (Bld) 0.0 % Normal . [facility] Comment on above: Performed By: #### B MP, SCAN CBC ####[address] Erythrocyte distribution width (RBC) [Ratio] 14.0 % Normal 12.0-14.8 [facility] Comment on above: Performed By: #### B MP, SCAN CBC ####[address] Hematocrit (Bld) [Volume fraction] 32.9 % Low 38.8-50.0 [facility] Comment on above: Performed By: #### B MP, SCAN CBC ####[place] [id number] [facility] Hemoglobin (Bld) [Mass/Vol] 10.7 g/dL Low 13.0-17.0 [facility] Comment on above: Performed By: #### B MP, SCAN CBC ####[place] [id number] [facility] Hypochromasia Moderate Normal [facility] Comment on above: Performed By: #### B MP, SCAN CBC ####[address] Lymphocytes (Bld) [#/Vol] 0.7 10*3/uL Low 1.00-4.8 [facility] Comment on above: Performed By: #### B MP, SCAN CBC ####[place] [address] [place] [address] [facility] Lymphocytes/100 WBC (Bld) 3.7 % Normal . [facility] Comment on above: Performed By: #### B MP, SCAN CBC ####[place] [address] [place] [address] [facility] MCH (RBC) [Entitic mass] 29.9 pg Normal 27.5-35.2 [facility] Comment on above: Performed By: #### B MP, SCAN CBC ####[place] [address] [place] [address] [facility] MCV (RBC) [Entitic vol] 92.0 fL Normal 83.5-101 [facility] Comment on above: Performed By: #### B MP, SCAN CBC ####[place] [id number] [facility] Mean Corpuscular HGB Conc 32.5 g/dL Normal 32.5-35.6 [facility] Comment on above: Performed By: #### B MP, SCAN CBC ####[address] [address] [place] Monocytes (Bld) [#/Vol] 0.8 10*3/uL Normal 0.0-0.8 [facility] Comment on above: Performed By: #### B MP, SCAN CBC ####[place] [id number] [facility] Monocytes/100 WBC (Bld) 4.3 % Normal . [facility] Comment on above: Performed By: #### B MP, SCAN CBC ####[address] [address] [place] Neutrophils (Bld) [#/Vol] 16.2 10*3/uL High 1.8-7.7 [facility] Comment on above: Performed By: #### B MP, SCAN CBC ####[place] [address] [place] [address] [facility] Neutrophils/100 WBC (Bld) 91.8 % Normal . [facility] Comment on above: Performed By: #### B MP, SCAN CBC ####[place] [address] [place] [address] [facility] NRBC% 0.1 /100{WBC} Normal 0-0.5 [facility] Comment on above: Performed By: #### B MP, SCAN CBC ####[address] [address] [facility] Platelet Estimate Normal Normal Normal [facility] Comment on above: Performed By: #### B MP, SCAN CBC ####[address] [address] [facility] Platelet mean volume (Bld) [Entitic vol] 7.4 fL Normal 6.6-10.1 [facility] Comment on above: Performed By: #### B MP, SCAN CBC ####[address] [address] [facility] Platelet Morphology Normal Normal Normal [facility] Comment on above: Result Comment: PERF ORMED BY:[address] [place], [place] [id number] MEDICAL ALEKSANDAR LUAREN M.D. Performed By: #### B MP, SCAN CBC ####[address] [address] [facility] Platelets (Bld) [#/Vol] 391 10*3/uL Normal 150-450 [facility] Comment on above: Performed By: #### B MP, SCAN CBC ####[address] [address] [facility] Polychromasia Moderate Normal [facility] Comment on above: Performed By: #### B MP, SCAN CBC ####[address] [address] [facility] RBC (Bld) [#/Vol] 3.58 10*6/uL Low 3.90-5.60 [facility] Comment on above: Performed By: #### B MP, SCAN CBC ####[address] [address] [facility] WBC (Bld) [#/Vol] 17.7 10*3/uL High 4.1-10.5 [facility] Comment on above: Performed By: #### B MP, SCAN CBC ####[facility] [address] [place] [address] [facility] XR chest 1V portableon 11-08 XR chest 1V portable Normal [facility] XR chest 1V portable Normal [facility] Arterial Blood Gason 023 ABG Base Excess 1.0 mmol/L Normal -3.0-3.0 [facility] Comment on above: Performed By: #### A BG ####Point of Care testing, ABG Frac Inspired O2 100 % [facility] Comment on above: Performed By: #### A BG ####Point of Care testing, ABG Oxygen Content 7.4 mmol/L Normal 6.6-9.7 [facility] Comment on above: Performed By: #### A BG ####Point of Care testing, ABG Oxygen Saturation 98.0 % Normal 95.0-100.0 [facility] Comment on above: Performed By: #### A BG ####Point of Care testing, ABG PCO2 60.2 mm[Hg] Off scale high 35.0-45.0 [facility] Comment on above: Performed By: #### A BG ####Point of Care testing, ABG PEEP 15 [facility] Comment on above: Performed By: #### A BG ####Point of Care testing, ABG PH 7.30 Low 7.35-7.45 [facility] Comment on above: Performed By: #### A BG ####Point of Care testing, ABG PO2 115.1 mm[Hg] High 80.0-100.0 [facility] Comment on above: Performed By: #### A BG ####Point of Care testing, ABG TV 500 mL [facility] Comment on above: Performed By: #### A BG ####Point of Care testing, CO2 [Moles/Vol] 30.5 mmol/L High 23.0-27.0 [facility] Comment on above: Performed By: #### A BG ####Point of Care testing, HCO3 (Bld) [Moles/Vol] 28.6 mmol/L Normal 23.0-29.0 [facility] Comment on above: Performed By: #### A BG ####Point of Care testing, Respiratory Critical [facility] Comment on above: Result Comment: Crit ical Value called on: 11/07/2022 at 09:15PERFORMED BY:[facility] [place], [place] [phone] MEDICAL DIRECTORNATI LAUREN M.D. Performed By: #### A BG ####Point of Care testing, Set Respiratory Rate 18 [facility] Comment on above: Performed By: #### A BG ####Point of Care testing, VBG Draw Site Right Radial [facility] Comment on above: Performed By: #### A BG ####Point of Care testing, Ventilator Mode AC [facility] Comment on above: Performed By: #### A BG ####Point of Care testing, ABG Base Excess 1.8 mmol/L Normal -3.0-3.0 [facility] Comment on above: Performed By: #### A BG ####Point of Care testing, ABG Frac Inspired O2 100 % [facility] Comment on above: Performed By: #### A BG ####Point of Care testing, ABG Oxygen Content 7.6 mmol/L Normal 6.6-9.7 [facility] Comment on above: Performed By: #### A BG ####Point of Care testing, ABG Oxygen Saturation 91.2 % Low 95.0-100.0 [facility] Comment on above: Performed By: #### A BG ####Point of Care testing, ABG PCO2 41.8 mm[Hg] Normal 35.0-45.0 [facility] Comment on above: Performed By: #### A BG ####Point of Care testing, ABG PEEP 10 [facility] Comment on above: Performed By: #### A BG ####Point of Care testing, ABG PH 7.42 Normal 7.35-7.45 [facility] Comment on above: Performed By: #### A BG ####Point of Care testing, ABG PO2 56.9 mm[Hg] Low 80.0-100.0 [facility] Comment on above: Performed By: #### A BG ####Point of Care testing, ABG Pressure Support 8.0 Normal [facility] Comment on above: Performed By: #### A BG ####Point of Care testing, CO2 [Moles/Vol] 27.7 mmol/L High 23.0-27.0 [facility] Comment on above: Performed By: #### A BG ####Point of Care testing, HCO3 (Bld) [Moles/Vol] 26.4 mmol/L Normal 23.0-29.0 [facility] Comment on above: Performed By: #### A BG ####Point of Care testing, Oxygen Device BiPAP [facility] Comment on above: Performed By: #### A BG ####Point of Care testing, Respiratory Critical [facility] Comment on above: Result Comment: Crit ical Value called on: 11/07/2022 at 05:41PERFORMED BY:[place] [address] [place], [place] [phone] MEDICAL DIRECTORNATI LAUREN M.D. Performed By: #### A BG ####Point of Care testing, VBG Draw Site Right Radial [facility] Comment on above: Performed By: #### A BG ####Point of Care testing, Bacteria identification by s terile body fluid cultureOrdered By: Sanjay Holt on 11-07-2022 Bacteria identified Sterile body fluid culture Nom (Unsp spec) Not indicated. . [facility] Bacteria identification dete ction in isolate by cultureOrdered By: Sanjay Holt on 11-07-2022 Bacteria Identification Cx Ql (Isol) Not indicated. . [facility] Comprehensive Metabolic Pane tiago 11-07-2022 Albumin [Mass/Vol] 2.9 g/dL Low 3.5-5.7 [facility] Comment on above: Performed By: #### C MP, SCAN CBC ####[place] [address] [place] [address] [facility] Albumin/Globulin [Mass ratio] 0.9 {ratio} Normal [facility] Comment on above: Performed By: #### C MP, SCAN CBC ####[place] [address] [place] [address] [facility] ALP [Catalytic activity/Vol] 107 U/L High 34-104 [facility] Comment on above: Performed By: #### C MP, SCAN CBC ####[facility] [address] [place] [address] [facility] ALT [Catalytic activity/Vol] 38 U/L Normal 7-52 [facility] Comment on above: Performed By: #### C MP, SCAN CBC ####[address] [address] [facility] Anion gap [Moles/Vol] 11.7 mmol/L Normal 6.0-15.0 [facility] Comment on above: Performed By: #### C MP, SCAN CBC ####[address] [address] [facility] AST [Catalytic activity/Vol] 32 U/L Normal 13-39 [facility] Comment on above: Performed By: #### C MP, SCAN CBC ####[address] [address] [facility] Bilirubin [Mass/Vol] 0.5 mg/dL Normal 0.3-1.0 [facility] Comment on above: Performed By: #### C MP, SCAN CBC ####[facility] [id number] [place] [address] [facility] Calcium [Mass/Vol] 8.4 mg/dL Low 8.6-10.3 [facility] Comment on above: Performed By: #### C MP, SCAN CBC ####[address] [address] [facility] Chloride [Moles/Vol] 99 mmol/L Normal 98-107 [facility] Comment on above: Performed By: #### C MP, SCAN CBC ####[facility] Ghh9909 [place] [address] [facility] CO2 [Moles/Vol] 27.6 mmol/L Normal 21.0-31.0 [facility] Comment on above: Performed By: #### C MP, SCAN CBC ####[facility] Igj2031 [place] [address] [facility] Creatinine [Mass/Vol] 0.55 mg/dL Low 0.70-1.30 [facility] Comment on above: Performed By: #### C MP, SCAN CBC ####[facility] Soh2954 [place] [address] [place] Creatinine Clr Calc Pharmacy 197.78 [facility] Comment on above: Result Comment: PERF ORMED BY:[address] [place], [place] [phone] MEDICAL DIRECTORNATI LAUREN M.D. Performed By: #### C MP, SCAN CBC ####[facility] Ybo7796 [place] [address] [facility] GFR/1.73 sq M.predicted MDRD (S/P/Bld) [Vol rate/Area] mL/min/{1.73_m2} [facility] Comment on above: Performed By: #### C MP, SCAN CBC ####[facility] Npo0994 [place] [address] [facility] Globulin (S) [Mass/Vol] 3.4 g/dL [facility] Comment on above: Performed By: #### C MP, SCAN CBC ####[facility] Lts7784 [place] [address] [facility] Glucose [Mass/Vol] 128 mg/dL High 70-100 [facility] Comment on above: Result Comment: [place] om Glucose Reference Range is dependent on time and content of last meal. Glucose of more than 200 mg/dL in a nonstressed, ambulatory subject supports the diagnosis of Diabetes Mellitus. ADA recommended reference range Performed By: #### C MP, SCAN CBC ####[facility] Azc3913 [place] [address] [facility] Potassium [Moles/Vol] 4.3 mmol/L Normal 3.5-5.1 [facility] Comment on above: Performed By: #### C MP, SCAN CBC ####[facility] Axm5736 [place] [address] [facility] Protein [Mass/Vol] 6.3 g/dL Low 6.4-8.9 [facility] Comment on above: Performed By: #### C MP, SCAN CBC ####[facility] Giw4021 [place] [address] [facility] Sodium [Moles/Vol] 134 mmol/L Low 136-145 [facility] Comment on above: Performed By: #### C MP, SCAN CBC ####[facility] Uxt7903 [place] [address] [facility] Urea nitrogen [Mass/Vol] 20 mg/dL Normal 7-25 [facility] Comment on above: Performed By: #### C MP, SCAN CBC ####[facility] Mtp9144 [place] [address] [place] ECG 12 lead ECGon 11-07-2022 ECG 12 lead ECG Normal [facility] ECG 12 lead ECG Normal [facility] ECG 12 lead ECG Normal [facility] Legionella Pneu 1-6 Antibodi eson 11-07-2022 Legionella Pneu 1-6 Antibodies <0.91 Normal 0.00-0.90 [facility] Comment on above: Order Comment: SPECI MEN HEMOLYZED NEEDS REDRAWN PLEASE Result Comment: Nega tive <0.91 Equivocal 0.91 - 1.09 Positive >1.09 This assay detects IgG/IgM/IgA antibodies to L. pneumophila Groups 1-6 by the EIA method. Performed at: [address] [id number] Garde Manger: Marla Bravo MD, Phone: [phone] BY:[address] NGOZIRosalbaAlfreditoALE, [place] [phone] MEDICAL DIRECTORNATI LAUREN M.D. Performed By: #### L EG PNE AB ####[facility] , Legionella Pneumophilia Ag, Uron 11-07-2022 Legionella Pneumophilia Ag, Ur Negative Normal Negative [facility] Comment on above: Order Comment: SOURC E OF SPECIMEN: [email or web address] Result Comment: Pres umptive negative for L. pneumophila serogroup 1 antigen in urine, suggesting no recent or current infection. Legionnaires' disease cannot be ruled out since other serogroups and species may also cause disease. Performed at: [address] [id number] Garde Manger: Marla Bravo MD, Phone: [phone] BY:[place] [address] [address] [place], [place] [phone] MEDICAL DIRECTORNATI LAUREN M.D. Performed By: #### U RLEGIONELLA ####[facility] , Legionella pneumophila type 1-6 antibody assayOrdered By: Sanjay Holt on 11-07-2022 L. pneumophila 1+2+3+4+5+6 Ab (S) [Titer] <0.91 OD ratio 0.00-0.90 [facility] Comment on above: Negative <0.91 Equiv ocal 0.91 - 1.09 Positive >1.09 This assay detects IgG/IgM/IgA antibodies to L. pneumophila Groups 1-6 by the EIA method.Performed at: [address] [id number] Director: Marla Bravo MD, Phone: [phone] Macrocytes LM Ql (Bld)Ordere d By: Netta Wiseman on 11-07-2022 Macrocytes Ql (Bld) Slight [facility] No Panel InformationOrdered By: Sanjay Holt on 11-07-2022 Strep pneumoniae Special Info See comment . [facility] Comment on above: [employer] standards require aculture to be performed on CSF specimens submitted forbacterial antigen testing. (CAP [id number]) Urine specimenswill not be cultured.Performed at: [address] [id number] Director: Marla Bravo MD, Phone: [phone] No Panel InformationOrdered By: Netta Wiseman on 11-07-2022 Blood Gas Pressure Support 8.0 cmH2O [facility] Oxygen Delivery Device Bipap [facility] Scan and CBCon 11-07-2022 Anisocytosis Ql (Bld) Slight Normal [facility] Comment on above: Performed By: #### C MP, SCAN CBC ####[address] Basophils (Bld) [#/Vol] 0.1 10*3/uL Normal 0.0-0.2 [facility] Comment on above: Performed By: #### C MP, SCAN CBC ####[address] Basophils/100 WBC (Bld) 0.3 % Normal . [facility] Comment on above: Performed By: #### C MP, SCAN CBC ####[address] Eosinophils (Bld) [#/Vol] 0.0 10*3/uL Normal 0.0-0.45 [facility] Comment on above: Performed By: #### C MP, SCAN CBC ####[address] Eosinophils/100 WBC (Bld) 0.0 % Normal . [facility] Comment on above: Performed By: #### C MP, SCAN CBC ####[address] Erythrocyte distribution width (RBC) [Ratio] 14.0 % Normal 12.0-14.8 [facility] Comment on above: Performed By: #### C MP, SCAN CBC ####[address] Hematocrit (Bld) [Volume fraction] 35.1 % Low 38.8-50.0 [facility] Comment on above: Performed By: #### C MP, SCAN CBC ####[address] Hemoglobin (Bld) [Mass/Vol] 11.5 g/dL Low 13.0-17.0 [facility] Comment on above: Performed By: #### C MP, SCAN CBC ####[address] Hypochromasia Slight Normal [facility] Comment on above: Performed By: #### C MP, SCAN CBC ####[address] Lymphocytes (Bld) [#/Vol] 1.1 10*3/uL Normal 1.00-4.8 [facility] Comment on above: Performed By: #### C MP, SCAN CBC ####[address] Lymphocytes/100 WBC (Bld) 3.3 % Normal . [facility] Comment on above: Performed By: #### C MP, SCAN CBC ####[address] Macrocytosis Slight Normal [facility] Comment on above: Performed By: #### C MP, SCAN CBC ####[address] MCH (RBC) [Entitic mass] 29.8 pg Normal 27.5-35.2 [facility] Comment on above: Performed By: #### C MP, SCAN CBC ####[address] MCV (RBC) [Entitic vol] 91.0 fL Normal 83.5-101 [facility] Comment on above: Performed By: #### C MP, SCAN CBC ####[address] Mean Corpuscular HGB Conc 32.8 g/dL Normal 32.5-35.6 [facility] Comment on above: Performed By: #### C MP, SCAN CBC ####[address] Monocytes (Bld) [#/Vol] 0.8 10*3/uL Normal 0.0-0.8 [facility] Comment on above: Performed By: #### C MP, SCAN CBC ####[address] [address] [facility] Monocytes/100 WBC (Bld) 2.4 % Normal . [facility] Comment on above: Performed By: #### C MP, SCAN CBC ####[address] [address] [facility] Neutrophils (Bld) [#/Vol] 30.7 10*3/uL High 1.8-7.7 [facility] Comment on above: Performed By: #### C MP, SCAN CBC ####[place] [id number] [facility] Neutrophils/100 WBC (Bld) 94.0 % Normal . [facility] Comment on above: Performed By: #### C MP, SCAN CBC ####[address] [address] [facility] NRBC% 0.1 /100{WBC} Normal 0-0.5 [facility] Comment on above: Performed By: #### C MP, SCAN CBC ####[address] [address] [facility] Platelet Estimate Normal Normal Normal [facility] Comment on above: Performed By: #### C MP, SCAN CBC ####[address] [address] [facility] Platelet mean volume (Bld) [Entitic vol] 7.9 fL Normal 6.6-10.1 [facility] Comment on above: Performed By: #### C MP, SCAN CBC ####[address] [address] [facility] Platelet Morphology Normal Normal Normal [facility] Comment on above: Result Comment: PERF ORMED BY:[address] [place], [place] [phone] MEDICAL ALEKSANDAR LAUREN M.D. Performed By: #### C MP, SCAN CBC ####[address] [place] [address] [place] Platelets (Bld) [#/Vol] 409 10*3/uL Normal 150-450 [facility] Comment on above: Performed By: #### C MP, SCAN CBC ####[address] Polychromasia Slight Normal [facility] Comment on above: Performed By: #### C MP, SCAN CBC ####[address] RBC (Bld) [#/Vol] 3.85 10*6/uL Low 3.90-5.60 [facility] Comment on above: Performed By: #### C MP, SCAN CBC ####[address] Stomatocytes Slight Normal [facility] Comment on above: Performed By: #### C MP, SCAN CBC ####[address] WBC (Bld) [#/Vol] 32.6 10*3/uL High 4.1-10.5 [facility] Comment on above: Performed By: #### C MP, SCAN CBC ####[address] Specimen source identifiedOr dered By: Sanjay Holt on 11-07-2022 Specimen source Nom (Unsp spec) Urine . [facility] Strep Pneumoniae Ag, Uron Body Fluid Culture Not indicated. Normal . [facility] Comment on above: Order Comment: SOURC E OF SPECIMEN: [email or web address] Performed By: #### U R STP AG ####[facility] , Organism ID Not indicated. Normal . [facility] Comment on above: Order Comment: SOURC E OF SPECIMEN: [email or web address] Performed By: #### U R STP AG ####[facility] , Please Note: Normal . [facility] Comment on above: Order Comment: SOURC E OF SPECIMEN: [email or web address] Result Comment: [employer] standards require a culture to be performed on CSF specimens submitted for bacterial antigen testing. (CAP [id number]) Urine specimens will not be cultured. Performed at: [address] [id number] Garde Manger: Marla Bravo MD, Phone: [phone] BY:[facility] [place], [place] [phone] MEDICAL DIRECTORNATI LAUREN M.D. Performed By: #### U R STP AG ####[facility] , Specimen source Nom (Unsp spec) Urine Normal . [facility] Comment on above: Order Comment: SOURC E OF SPECIMEN: [email or web address] Performed By: #### U R STP AG ####[facility] , Streptococcus Pneumoniae Ag Negative Normal Negative [facility] Comment on above: Order Comment: SOURC E OF SPECIMEN: [email or web address] Performed By: #### U R STP AG ####[facility] , Streptococcus pneumoniae ant igen detectionOrdered By: Sanjay Holt on 11-07-2022 S. pneumoniae Ag Ql (Unsp spec) Negative Negative [facility] Triglycerideson 11-07-2022 Triglyceride [Mass/Vol] 222 mg/dL High 0-149 [facility] Comment on above: Order Comment: Comme nt please run off blood drawn this morning Result Comment: TRIG ATP III CLASSIFICATION TRIG less than 150 mg/dL Normal TRIG 150-199 mg/dL Borderline high TRIG 200-500 mg/dL High TRIG greater than 500 mg/dL Very high Standard traceable to the Center for Disease Conrtrol and Prevention (CDC) test method.PERFORMED BY:[address] [place], [place] [phone] MEDICAL DIRECTORNATI LAUREN M.D. Performed By: #### T RIG ####[facility] Haj8289 [place] [address] [facility] Urine Legionella antigen det ectionOrdered By: Sanjay Holt on 11-07-2022 Legionella sp Ag Ql (U) Negative Negative [facility] Comment on above: Presumptive negative for L. pneumophila serogroup 1 antigenin urine, suggesting no recent or current infection.Legionnaires' disease cannot be ruled out since otherserogroups and species may also cause disease.Performed at: [facility] Lab[address] [id number] Director: Marla Bravo MD, Phone: [phone] XR chest 1V portableon 11-07 XR chest 1V portable [facility] XR chest 1V portable [facility] CT chest w conon 11-06-2022 CT chest w con [facility] Comprehensive Metabolic Pane tiago 11-06-2022 Albumin [Mass/Vol] 2.8 g/dL Low 3.5-5.7 [facility] Comment on above: Order Comment: draw at 0500 Performed By: #### C MP, SCAN CBC ####[facility] Pys2827 [place] [address] [facility] Albumin/Globulin [Mass ratio] 0.8 {ratio} [facility] Comment on above: Order Comment: draw at 0500 Performed By: #### C MP, SCAN CBC ####[facility] Ptc8973 [place] [address] [facility] ALP [Catalytic activity/Vol] 96 U/L Normal 34-104 [facility] Comment on above: Order Comment: draw at 0500 Performed By: #### C MP, SCAN CBC ####[facility] Ief5310 [place] [address] [facility] ALT [Catalytic activity/Vol] 17 U/L Normal 7-52 [facility] Comment on above: Order Comment: draw at 0500 Performed By: #### C MP, SCAN CBC ####[facility] Glm9702 [place] [address] [place] Anion gap [Moles/Vol] 11.9 mmol/L Normal 6.0-15.0 [facility] Comment on above: Order Comment: draw at 0500 Performed By: #### C MP, SCAN CBC ####[facility] Ggs7398 [place] [address] [place] AST [Catalytic activity/Vol] 11 U/L Low 13-39 [facility] Comment on above: Order Comment: draw at 0500 Performed By: #### C MP, SCAN CBC ####[facility] Frf9800 [place] [address] [facility] Bilirubin [Mass/Vol] 0.5 mg/dL Normal 0.3-1.0 [facility] Comment on above: Order Comment: draw at 0500 Performed By: #### C MP, SCAN CBC ####[facility] [address] [place] [address] [facility] Calcium [Mass/Vol] 8.4 mg/dL Low 8.6-10.3 [facility] Comment on above: Order Comment: draw at 0500 Performed By: #### C MP, SCAN CBC ####[facility] Xms9083 [place] [address] [facility] Chloride [Moles/Vol] 101 mmol/L Normal 98-107 [facility] Comment on above: Order Comment: draw at 0500 Performed By: #### C MP, SCAN CBC ####[address] [address] [facility] CO2 [Moles/Vol] 26.8 mmol/L Normal 21.0-31.0 [facility] Comment on above: Order Comment: draw at 0500 Performed By: #### C MP, SCAN CBC ####[place] [address] [place] [address] [facility] Creatinine [Mass/Vol] 0.51 mg/dL Low 0.70-1.30 [facility] Comment on above: Order Comment: draw at 0500 Performed By: #### C MP, SCAN CBC ####[facility] [address] [place] [address] [place] Creatinine Clr Calc Pharmacy 213.29 Normal [facility] Comment on above: Order Comment: draw at 0500 Result Comment: PERF ORMED BY:[place] [address] [place], [place] [phone] MEDICAL ALEKSANDAR LAUREN M.D. Performed By: #### C MP, SCAN CBC ####[facility] [address] [place] [address] [facility] GFR/1.73 sq M.predicted MDRD (S/P/Bld) [Vol rate/Area] mL/min/{1.73_m2} [facility] Comment on above: Order Comment: draw at 0500 Performed By: #### C MP, SCAN CBC ####[facility] Xfq9194 [place] [address] [facility] Globulin (S) [Mass/Vol] 3.4 g/dL [facility] Comment on above: Order Comment: draw at 0500 Performed By: #### C MP, SCAN CBC ####[facility] Pxf2512 [place] [address] [place] Glucose [Mass/Vol] 127 mg/dL High 70-100 [facility] Comment on above: Order Comment: draw at 0500 Result Comment: [place] Glucose Reference Range is dependent on time and content of last meal. Glucose of more than 200 mg/dL in a nonstressed, ambulatory subject supports the diagnosis of Diabetes Mellitus. ADA recommended reference range Performed By: #### C MP, SCAN CBC ####[facility] Frk1901 [place] [address] [place] Potassium [Moles/Vol] 3.7 mmol/L Normal 3.5-5.1 [facility] Comment on above: Order Comment: draw at 0500 Performed By: #### C MP, SCAN CBC ####[facility] Kho8469 [place] [address] [place] Protein [Mass/Vol] 6.2 g/dL Low 6.4-8.9 [facility] Comment on above: Order Comment: draw at 0500 Performed By: #### C MP, SCAN CBC ####[facility] [place] [address] [place] Sodium [Moles/Vol] 136 mmol/L Normal 136-145 [facility] Comment on above: Order Comment: draw at 0500 Performed By: #### C MP, SCAN CBC ####[facility] [place] [address] [place] Urea nitrogen [Mass/Vol] 15 mg/dL Normal 7-25 [facility] Comment on above: Order Comment: draw at 0500 Performed By: #### C MP, SCAN CBC ####[address] Helmet cell detectionOrdered By: Netta Wiseman on 11-06-2022 Helmet cells LM Ql (Bld) Slight [facility] Scan and CBCon 11-06-2022 Basophils (Bld) [#/Vol] 0.1 10*3/uL Normal 0.0-0.2 [facility] Comment on above: Order Comment: draw at 0500 Performed By: #### C MP, SCAN CBC ####[address] Basophils/100 WBC (Bld) 0.2 % Normal . [facility] Comment on above: Order Comment: draw at 0500 Performed By: #### C MP, SCAN CBC ####[address] Eosinophils (Bld) [#/Vol] 0.0 10*3/uL Normal 0.0-0.45 [facility] Comment on above: Order Comment: draw at 0500 Performed By: #### C MP, SCAN CBC ####[address] Eosinophils/100 WBC (Bld) 0.0 % Normal . [facility] Comment on above: Order Comment: draw at 0500 Performed By: #### C MP, SCAN CBC ####[address] Erythrocyte distribution width (RBC) [Ratio] 13.9 % Normal 12.0-14.8 [facility] Comment on above: Order Comment: draw at 0500 Performed By: #### C MP, SCAN CBC ####[place] [id number] [facility] Helmet Cells Slight Normal [facility] Comment on above: Order Comment: draw at 0500 Performed By: #### C MP, SCAN CBC ####[place] [id number] [place] Hematocrit (Bld) [Volume fraction] 34.6 % Low 38.8-50.0 [facility] Comment on above: Order Comment: draw at 0500 Performed By: #### C MP, SCAN CBC ####[place] [id number] [facility] Hemoglobin (Bld) [Mass/Vol] 11.2 g/dL Low 13.0-17.0 [facility] Comment on above: Order Comment: draw at 0500 Performed By: #### C MP, SCAN CBC ####[place] [id number] [facility] Hypochromasia Slight Normal [facility] Comment on above: Order Comment: draw at 0500 Performed By: #### C MP, SCAN CBC ####[place] [id number] [facility] Lymphocytes (Bld) [#/Vol] 1.1 10*3/uL Normal 1.00-4.8 [facility] Comment on above: Order Comment: draw at 0500 Performed By: #### C MP, SCAN CBC ####[place] [id number] [facility] Lymphocytes/100 WBC (Bld) 3.5 % Normal . [facility] Comment on above: Order Comment: draw at 0500 Performed By: #### C MP, SCAN CBC ####[place] [id number] [facility] MCH (RBC) [Entitic mass] 29.7 pg Normal 27.5-35.2 [facility] Comment on above: Order Comment: draw at 0500 Performed By: #### C MP, SCAN CBC ####[place] [id number] [facility] MCV (RBC) [Entitic vol] 91.8 fL Normal 83.5-101 [facility] Comment on above: Order Comment: draw at 0500 Performed By: #### C MP, SCAN CBC ####[place] [id number] [facility] Mean Corpuscular HGB Conc 32.4 g/dL Low 32.5-35.6 [facility] Comment on above: Order Comment: draw at 0500 Performed By: #### C MP, SCAN CBC ####[address] Monocytes (Bld) [#/Vol] 1.0 10*3/uL High 0.0-0.8 [facility] Comment on above: Order Comment: draw at 0500 Performed By: #### C MP, SCAN CBC ####[place] [id number] [facility] Monocytes/100 WBC (Bld) 3.3 % Normal . [facility] Comment on above: Order Comment: draw at 0500 Performed By: #### C MP, SCAN CBC ####[address] Neutrophils (Bld) [#/Vol] 28.0 10*3/uL High 1.8-7.7 [facility] Comment on above: Order Comment: draw at 0500 Performed By: #### C MP, SCAN CBC ####[address] Neutrophils/100 WBC (Bld) 93.0 % Normal . [facility] Comment on above: Order Comment: draw at 0500 Performed By: #### C MP, SCAN CBC ####[address] NRBC% 0.0 /100{WBC} Normal 0-0.5 [facility] Comment on above: Order Comment: draw at 0500 Performed By: #### C MP, SCAN CBC ####[place] [id number] [facility] Platelet Estimate Normal Normal Normal [facility] Comment on above: Order Comment: draw at 0500 Performed By: #### C MP, SCAN CBC ####[place] [id number] [facility] Platelet mean volume (Bld) [Entitic vol] 8.0 fL Normal 6.6-10.1 [facility] Comment on above: Order Comment: draw at 0500 Performed By: #### C MP, SCAN CBC ####[address] [address] [facility] Platelet Morphology Normal Normal Normal [facility] Comment on above: Order Comment: draw at 0500 Result Comment: PERF ORMED BY:[address] FORRESTERCHAR[place], [place] [phone] MEDICAL DIRECTORNATI LAUREN M.D. Performed By: #### C MP, SCAN CBC ####[address] [address] [facility] Platelets (Bld) [#/Vol] 346 10*3/uL Normal 150-450 [facility] Comment on above: Order Comment: draw at 0500 Performed By: #### C MP, SCAN CBC ####[place] [id number] [facility] RBC (Bld) [#/Vol] 3.77 10*6/uL Low 3.90-5.60 [facility] Comment on above: Order Comment: draw at 0500 Performed By: #### C MP, SCAN CBC ####[address] [address] [facility] [facility] WBC (Bld) [#/Vol] 30.2 10*3/uL High 4.1-10.5 [facility] Comment on above: Order Comment: draw at 0500 Performed By: #### C MP, SCAN CBC ####[place] [id number] [facility] Aerobic Cultureon 11-05-2022 Aerobic Culture Normal [facility] Comment on above: Performed By: #### G S, AERC ####[place] [id number] [facility] Arterial Blood Gason 023 ABG Base Excess 0.9 mmol/L Normal -3.0-3.0 [facility] Comment on above: Performed By: #### A BG ####Point of Care testing, ABG Frac Inspired O2 55 % Normal [facility] Comment on above: Performed By: #### A BG ####Point of Care testing, ABG Liter Flow 14 Normal [facility] Comment on above: Performed By: #### A BG ####Point of Care testing, ABG Oxygen Content 6.6 mmol/L Normal 6.6-9.7 [facility] Comment on above: Performed By: #### A BG ####Point of Care testing, ABG Oxygen Saturation 89.0 % Low 95.0-100.0 [facility] Comment on above: Performed By: #### A BG ####Point of Care testing, ABG PCO2, Temp Corrected 40.4 mm[Hg] Normal 35.0-45.0 [facility] Comment on above: Performed By: #### A BG ####Point of Care testing, ABG PH, Temp Corrected 7.41 Normal 7.35-7.45 [facility] Comment on above: Performed By: #### A BG ####Point of Care testing, ABG PO2, Temperature Corrected 61.0 mm[Hg] Low 80.0-100.0 [facility] Comment on above: Performed By: #### A BG ####Point of Care testing, CO2 [Moles/Vol] 25.8 mmol/L Normal 23.0-27.0 [facility] Comment on above: Performed By: #### A BG ####Point of Care testing, HCO3 (Bld) [Moles/Vol] 24.7 mmol/L Normal 23.0-29.0 [facility] Comment on above: Performed By: #### A BG ####Point of Care testing, Oxygen Device Venti Mask [facility] Comment on above: Performed By: #### A BG ####Point of Care testing, Respiratory Critical [facility] Comment on above: Result Comment: Crit ical Value called on: 11/05/2022 at 09:39PERFORMED BY:[facility] [place], [place] [phone] MEDICAL DIRECTORNATI LAUREN M.D. Performed By: #### A BG ####Point of Care testing, VBG Draw Site Right Radial Normal [facility] Comment on above: Performed By: #### A BG ####Point of Care testing, B-Type Natriuretic Peptideon 11-05-2022 Natriuretic peptide B (Bld) [Mass/Vol] 130.0 pg/mL High 5-100 [facility] Comment on above: Result Comment: PERF ORMED BY:[address] [place], [place] [id number] MEDICAL DIRECTORNATI LAUREN M.D. Performed By: #### B PRECISION ASSEMBLER BENCH, LACTIC, HS TROP, HEPATIC ####[address]#### PROCALCITONIN ####[facility] , Basic Metabolic Panelon 10-09 Anion gap [Moles/Vol] 10.1 mmol/L Normal 6.0-15.0 [facility] Comment on above: Performed By: #### E SR, BMP, MG, CBC ####[address] [address] [facility] Calcium [Mass/Vol] 7.8 mg/dL Low 8.6-10.3 [facility] Comment on above: Performed By: #### E SR, BMP, MG, CBC ####[address] [address] [facility] Chloride [Moles/Vol] 101 mmol/L Normal 98-107 [facility] Comment on above: Performed By: #### E SR, BMP, MG, CBC ####[place] [id number] [facility] CO2 [Moles/Vol] 27.1 mmol/L Normal 21.0-31.0 [facility] Comment on above: Performed By: #### E SR, BMP, MG, CBC ####[place] [address] [place] [address] [facility] Creatinine [Mass/Vol] 0.59 mg/dL Low 0.70-1.30 [facility] Comment on above: Performed By: #### E SR, BMP, MG, CBC ####[facility] [id number] [place] [address] [facility] Creatinine Clr Calc Pharmacy 169.08 [facility] Comment on above: Performed By: #### E SR, BMP, MG, CBC ####[facility] [place] [address] [facility] GFR/1.73 sq M.predicted MDRD (S/P/Bld) [Vol rate/Area] mL/min/{1.73_m2} [facility] Comment on above: Performed By: #### E SR, BMP, MG, CBC ####[place] [address] [place] [id number] [facility] Glucose [Mass/Vol] 135 mg/dL High 70-100 [facility] Comment on above: Result Comment: [facility] Glucose Reference Range is dependent on time and content of last meal. Glucose of more than 200 mg/dL in a nonstressed, ambulatory subject supports the diagnosis of Diabetes Mellitus. ADA recommended reference range Performed By: #### E SR, BMP, MG, CBC ####[place] [address] [place] [address] [facility] Potassium [Moles/Vol] 3.2 mmol/L Low 3.5-5.1 [facility] Comment on above: Performed By: #### E SR, BMP, MG, CBC ####[place] [address] [place] [address] [facility] Sodium [Moles/Vol] 135 mmol/L Low 136-145 [facility] Comment on above: Performed By: #### E SR, BMP, MG, CBC ####[facility] [place] [address] [facility] Urea nitrogen [Mass/Vol] 13 mg/dL Normal 7-25 [facility] Comment on above: Performed By: #### E SR, BMP, MG, CBC ####[facility] [id number] [place] [address] [facility] BioFire Not Detectedon 11-05 BioFire Not Detected Not detected Normal Not Detecte [facility] Comment on above: Result Comment: This is a duplicate RP2.1 COVID (PCR) result to be used for statistical tracking purpose only.PERFORMED BY:[facility] [place], [place] [id number] MEDICAL DIRECTORNATI LAUREN M.D. Performed By: #### B IOFIRECOVNOTDE, RESP PANEL UPP. ####[facility] [address] [place] [address] [place] Blood Cultureon 11-05-2022 Bacteria identified Cx Nom (Bld) NO GROWTH 5 DAYS PERFORMED BY: [facility] [address] [place] [address] PATHOLOGIST WASHER CARCASS NATI LAUREN M.D. Normal [facility] Comment on above: Performed By: #### C UBLD ####[place] [address] [place] [address] [facility] CARDIAC RON 3-6on 3 CK [Catalytic activity/Vol] 45 U/L Normal 39-308 [facility] Comment on above: Performed By: #### C MREP #### [facility] [address] [place] [address] [address] Epi Goldstein CK.MB [Mass/Vol] 0.75 ng/mL Normal <=3.60 [facility] Comment on above: Performed By: #### C MREP #### [facility] [address] [place] [address] [address] Epi Goldstein HSTROP 7.0 pg/mL Normal 4.0-76.1 [facility] Comment on above: Result Comment: CUT- OFF POINTS HAVE BEEN ESTABLISHED BASED ON THE FOURTH UNIVERSAL DEFINITIONS OF MYOCARDIAL INFARCTION. THE UPPER REFERENCE LIMIT (URL) OF TROPONIN, DEFINED THE 99TH PERCENTILE OF cTnI DISTRIBUTION IN A REFERENCE POPULATION, HAS BEEN CONFIRMED THE DECISION THRESHOLD FOR IN DIAGNOSIS. Performed By: #### C MREP #### [facility] [address] [place] [address] [address] Epi Goldstein COVID-19 Detected/Not Detect edOrdered By: Netta Wiseman on 11-05-2022 SARS-CoV-2 (COVID-19) RNA ROWENA+non-probe Ql (Nph) Not detected Not Detecte [facility] Comment on above: This is a duplicate RP2.1 COVID (PCR) result to be used for statistical tracking purpose only. Complete Blood Count Auto Di ffon 11-05-2022 Basophils (Bld) [#/Vol] 0.1 10*3/uL Normal 0.0-0.2 [facility] Comment on above: Performed By: #### E SR, BMP, MG, CBC ####[address] Basophils/100 WBC (Bld) 0.5 % Normal . [facility] Comment on above: Performed By: #### E SR, BMP, MG, CBC ####[address] Eosinophils (Bld) [#/Vol] 0.1 10*3/uL Normal 0.0-0.45 [facility] Comment on above: Performed By: #### E SR, BMP, MG, CBC ####[address] Eosinophils/100 WBC (Bld) 0.5 % Normal . [facility] Comment on above: Performed By: #### E SR, BMP, MG, CBC ####[address] Erythrocyte distribution width (RBC) [Ratio] 13.2 % Normal 12.0-14.8 [facility] Comment on above: Performed By: #### E SR, BMP, MG, CBC ####[address] Hematocrit (Bld) [Volume fraction] 30.8 % Low 38.8-50.0 [facility] Comment on above: Performed By: #### E SR, BMP, MG, CBC ####[address] Hemoglobin (Bld) [Mass/Vol] 10.2 g/dL Low 13.0-17.0 [facility] Comment on above: Performed By: #### E SR, BMP, MG, CBC ####[address] Lymphocytes (Bld) [#/Vol] 1.5 10*3/uL Normal 1.00-4.8 [facility] Comment on above: Performed By: #### E SR, BMP, MG, CBC ####[address] Lymphocytes/100 WBC (Bld) 8.7 % Normal . [facility] Comment on above: Performed By: #### E SR, BMP, MG, CBC ####[address] MCH (RBC) [Entitic mass] 30.0 pg Normal 27.5-35.2 [facility] Comment on above: Performed By: #### E SR, BMP, MG, CBC ####[address] MCV (RBC) [Entitic vol] 90.7 fL Normal 83.5-101 [facility] Comment on above: Performed By: #### E SR, BMP, MG, CBC ####[address] Mean Corpuscular HGB Conc 33.1 g/dL Normal 32.5-35.6 [facility] Comment on above: Performed By: #### E SR, BMP, MG, CBC ####[address] Monocytes (Bld) [#/Vol] 1.4 10*3/uL High 0.0-0.8 [facility] Comment on above: Performed By: #### E SR, BMP, MG, CBC ####[address] Monocytes/100 WBC (Bld) 8.3 % Normal . [facility] Comment on above: Performed By: #### E SR, BMP, MG, CBC ####[address] Neutrophils (Bld) [#/Vol] 14.3 10*3/uL High 1.8-7.7 [facility] Comment on above: Performed By: #### E SR, BMP, MG, CBC ####[address] Neutrophils/100 WBC (Bld) 82.0 % Normal . [facility] Comment on above: Performed By: #### E SR, BMP, MG, CBC ####[address] NRBC% 0.1 /100{WBC} Normal 0-0.5 [facility] Comment on above: Performed By: #### E SR, BMP, MG, CBC ####[address] Platelet mean volume (Bld) [Entitic vol] 7.8 fL Normal 6.6-10.1 [facility] Comment on above: Performed By: #### E SR, BMP, MG, CBC ####[address] Platelets (Bld) [#/Vol] 319 10*3/uL Normal 150-450 [facility] Comment on above: Performed By: #### E SR, BMP, MG, CBC ####[address] RBC (Bld) [#/Vol] 3.39 10*6/uL Low 3.90-5.60 [facility] Comment on above: Performed By: #### E SR, BMP, MG, CBC ####[address] WBC (Bld) [#/Vol] 17.4 10*3/uL High 4.1-10.5 [facility] Comment on above: Performed By: #### E SR, BMP, MG, CBC ####[address] ECG 12 lead ECGon 11-05-2022 ECG 12 lead ECG Normal [facility] Erythrocyte Sedimentation Ra tristin 11-05-2022 ESR (Bld) [Velocity] 82 mm/h High 0-19 [facility] Comment on above: Result Comment: PERF ORMED BY:[place] [address] [address] [place], [place] [phone] MEDICAL DIRECTORNATI LAUREN M.D. Performed By: #### E SR, BMP, MG, CBC ####[address] Erythrocyte sedimentation ra te by Photometric methodOrdered By: Annabel Boo on 11-05-2022 ESR Photometric method (Bld) [Velocity] 82 mm/hr 0-19 [facility] Gram Stainon 11-05-2022 Microscopic observation Gram stain Nom (Unsp spec) Normal [facility] Comment on above: Performed By: #### G S, AERC ####[address] Hepatic Panelon 11-05-2022 Albumin [Mass/Vol] 2.9 g/dL Low 3.5-5.7 [facility] Comment on above: Performed By: #### B PRECISION ASSEMBLER BENCH, LACTIC, HS TROP, HEPATIC ####[address]#### PROCALCITONIN ####[facility] , Albumin/Globulin [Mass ratio] 1.0 {ratio} Normal [facility] Comment on above: Performed By: #### B PRECISION ASSEMBLER BENCH, LACTIC, HS TROP, HEPATIC ####[address]#### PROCALCITONIN ####[facility] , ALP [Catalytic activity/Vol] 79 U/L Normal 34-104 [facility] Comment on above: Result Comment: PERF ORMED BY:[place] [address] [address] [place], [place] [phone] MEDICAL DIRECTORNATI LAUREN M.D. Performed By: #### B PRECISION ASSEMBLER BENCH, LACTIC, HS TROP, HEPATIC ####[facility] [address]#### PROCALCITONIN ####[facility] , ALT [Catalytic activity/Vol] 24 U/L Normal 7-52 [facility] Comment on above: Performed By: #### B PRECISION ASSEMBLER BENCH, LACTIC, HS TROP, HEPATIC ####[address]#### PROCALCITONIN ####[facility] , AST [Catalytic activity/Vol] 12 U/L Low 13-39 [facility] Comment on above: Performed By: #### B PRECISION ASSEMBLER BENCH, LACTIC, HS TROP, HEPATIC ####[address]#### PROCALCITONIN ####[facility] , Bilirubin [Mass/Vol] 0.4 mg/dL Normal 0.3-1.0 [facility] Comment on above: Performed By: #### B PRECISION ASSEMBLER BENCH, LACTIC, HS TROP, HEPATIC ####[address]#### PROCALCITONIN ####[facility] , Bilirubin,Indirect 0.3 mg/dL Normal [facility] Comment on above: Performed By: #### B PRECISION ASSEMBLER BENCH, LACTIC, HS TROP, HEPATIC ####[address]#### PROCALCITONIN ####[facility] , Bilirubin.indirect [Mass/Vol] 0.10 mg/dL Normal 0.03-0.18 [facility] Comment on above: Performed By: #### B PRECISION ASSEMBLER BENCH, LACTIC, HS TROP, HEPATIC ####[place] [address] [place]#### PROCALCITONIN ####[facility] , Globulin (S) [Mass/Vol] 2.8 g/dL Normal [facility] Comment on above: Performed By: #### B PRECISION ASSEMBLER BENCH, LACTIC, HS TROP, HEPATIC ####[facility] [place] [address] [place]#### PROCALCITONIN ####[facility] , Protein [Mass/Vol] 5.7 g/dL Low 6.4-8.9 [facility] Comment on above: Performed By: #### B PRECISION ASSEMBLER BENCH, LACTIC, HS TROP, HEPATIC ####[place] [address] [place] [id number] [place]#### PROCALCITONIN ####[facility] , LACTATE/LACTIC ACIDon 2022 Lactate [Moles/Vol] 1.1 mmol/L Normal 0.4-2.0 [facility] Comment on above: Performed By: #### L ACT #### [facility] [address] [address] [address] Epi Goldstein Lactate [Moles/volume] in Se rum or PlasmaOrdered By: Netta Wiseman on 11-05-2022 Lactate [Moles/Vol] 0.9 mmol/L 0.5-2.2 [facility] Lactic Acidon 11-05-2022 Lactate [Moles/Vol] 0.9 mmol/L Normal 0.5-2.2 [facility] Comment on above: Result Comment: PERF ORMED BY:[address] [place], [place] [phone] MEDICAL DIRECTORNATI LAUREN M.D. Performed By: #### B PRECISION ASSEMBLER BENCH, LACTIC, HS TROP, HEPATIC ####[place] [address] [place] [id number] [place]#### PROCALCITONIN ####[facility] , Magnesiumon 11-05-2022 Magnesium [Mass/Vol] 1.9 mg/dL Normal 1.9-2.7 [facility] Comment on above: Result Comment: PERF ORMED BY:[address] [place], [place] [phone] MEDICAL DIRECTORNATI LAUREN M.D. Performed By: #### E SR, BMP, MG, CBC ####[facility] [address] [place] [address] [place] Natriuretic peptide B [Mass/ Vol]Ordered By: Netta Wiseman on 11-05-2022 Natriuretic peptide B (Bld) [Mass/Vol] 130.0 pg/mL 5-100 [facility] No Panel InformationOrdered By: Netta Wiseman on 11-05-2022 Arterial Blood pCO2 (Temp correct) 40.4 mm[Hg] 35.0-45.0 [facility] Arterial Blood pH (Temp corrected) 7.41 7.35-7.45 [facility] Arterial Blood pO2 (Temp corrected) 61.0 mm[Hg] 80.0-100.0 [facility] Blood Gas Liter Flow 14 L/min [facility] Procalcitoninon 11-05-2022 Procalcitonin 0.32 ng/mL High 0.00-0.08 [facility] Comment on above: Result Comment: A pr [...] concentrations <2 ng/mL are obtained. Performed at: [address] [id number] Garde Manger: Marla Bravo MD, Phone: [phone] BY:[facility] [place], [place] [phone] MEDICAL DIRECTORNATI LAUREN M.D. Performed By: #### B PRECISION ASSEMBLER BENCH, LACTIC, HS TROP, HEPATIC ####[facility] [id number] [place] [id number] [facility]#### PROCALCITONIN ####[facility] , Respiratory (Upper) Panel, P CRon 11-05-2022 Respiratory (Upper) Panel, PCR Normal [facility] Comment on above: Performed By: #### B IOFIRECOVNOTDE, RESP PANEL UPP. ####[facility] [id number] [place] [id number] [facility] Serum procalcitonin measurem entOrdered By: Netta Wiseman on 11-05-2022 Procalcitonin [Mass/Vol] 0.32 ng/mL 0.00-0.08 [facility] Comment on above: A procalcitonin (PCT ) [...] concentrations <2 ng/mL are obtained.Performed at: - [facility] [id number] Director: Marla Bravo MD, Phone: [phone] Troponin I High Sensitivityo n 11-05-2022 Troponin I High Sensitivity 17.7 pg/mL Normal 0.0-20.0 [facility] Comment on above: Result Comment: PERF ORMED BY:[address] [place], [place] [phone] MEDICAL DIRECTORNATI LAUREN M.D. Performed By: #### B PRECISION ASSEMBLER BENCH, LACTIC, HS TROP, HEPATIC ####[facility] [id number]#### PROCALCITONIN ####[facility] , XR chest 1V portableon 11-05 XR chest 1V portable Normal [facility] CARDIAC RON ADMITon 023 CK [Catalytic activity/Vol] 67 U/L Normal 39-308 [facility] Comment on above: Performed By: #### B MP, CMADM #### [facility] [address] [place] [address] Dr. Epi Goldstein CK.MB [Mass/Vol] 0.75 ng/mL Normal <=3.60 [facility] Comment on above: Performed By: #### B YOSEPH, CMADM #### [facility] [address] [place] [address] Dr. Epi Goldstein HSTROP 6.4 pg/mL Normal 4.0-76.1 [facility] Comment on above: Result Comment: CUT- OFF POINTS HAVE BEEN ESTABLISHED BASED ON THE FOURTH UNIVERSAL DEFINITIONS OF MYOCARDIAL INFARCTION. THE UPPER REFERENCE LIMIT (URL) OF TROPONIN, DEFINED THE 99TH PERCENTILE OF cTnI DISTRIBUTION IN A REFERENCE POPULATION, HAS BEEN CONFIRMED THE DECISION THRESHOLD FOR IN DIAGNOSIS. Performed By: #### B YOSEPH, CMADM #### [facility] [address] [place] [address] Dr. Epi Goldstein PRATIK 37 ng/mL Normal 16-96 [facility] Comment on above: Performed By: #### B MP, CMADM #### [facility] [address] [address] [address] Epi Goldstein CBC AUTO DIFFon 11-04-2022 BASO # 0.0 103/ul Normal 0.0-0.1 [facility] Comment on above: Performed By: #### C BC #### [facility] [address] [address] [address] Epi Goldstein Basophils/100 WBC (Bld) 0.2 % Normal 0.2-2.0 [facility] Comment on above: Performed By: #### C BC #### [facility] [address] [address] [address] Epi Goldstein EO # 0.0 103/ul Normal 0.0-0.7 [facility] Comment on above: Performed By: #### C BC #### [facility] [address] [address] [address] Epi Goldstein Eosinophils/100 WBC (Bld) 0.2 % Critically low 0.9-7.0 [facility] Comment on above: Performed By: #### C BC #### [facility] [address] [place] [address] Dr. Epi Goldstein Erythrocyte distribution width (RBC) [Ratio] 12.5 % Normal 11.0-15.0 [facility] Comment on above: Performed By: #### C BC #### [facility] [address] [place] [address] Dr. Epi Goldstein Hematocrit (Bld) [Volume fraction] 35.9 % Critically low 42.0-54.0 [facility] Comment on above: Performed By: #### C BC #### [facility] [address] [place] [address] Dr. Epi Goldstein Hemoglobin (Bld) [Mass/Vol] 12.0 g/dL Critically low 14.0-18.0 [facility] Comment on above: Performed By: #### C BC #### [facility] [address] [place] [address] Dr. Epi Goldstein IG # 0.13 10e3/ul Critically high 0.00-0.03 [facility] Comment on above: Performed By: #### C BC #### [facility] [address] [place] [address] Dr. Epi Goldstein IG % 0.6 % Critically high 0.0-0.5 [facility] Comment on above: Performed By: #### C BC #### [facility] [address] [place] [address] Dr. Epi Goldstein LYMPH # 2.7 103/ul Normal 1.2-3.8 [facility] Comment on above: Performed By: #### C BC #### [facility] [address] [place] [address] Dr. Epi Goldstein Lymphocytes/100 WBC (Bld) 13.0 % Critically low 20.5-60.0 [facility] Comment on above: Performed By: #### C BC #### [facility] [address] [place] [address] Dr. Epi Goldstein MANUAL DIFF REQ NO Normal [facility] Comment on above: Performed By: #### C BC #### [facility] [address] [place] [address] Dr. Epi Goldstein MCH (RBC) [Entitic mass] 30.5 pg Normal 25.9-34.0 [facility] Comment on above: Performed By: #### C BC #### [facility] [address] [place] [address] Dr. Epi Goldstein MCHC (RBC) [Mass/Vol] 33.4 g/dL Normal 29.9-35.2 [facility] Comment on above: Performed By: #### C BC #### [facility] [address] [place] [address] Dr. Epi Goldstein MCV (RBC) [Entitic vol] 91.1 fL Normal 80.0-94.0 [facility] Comment on above: Performed By: #### C BC #### [facility] [address] [place] [address] Dr. Epi Goldstein MONO # 1.7 103/ul Critically high 0.3-0.8 [facility] Comment on above: Performed By: #### C BC #### [facility] [address] [place] [address] Dr. Epi Goldstein Monocytes/100 WBC (Bld) 8.4 % Normal 1.7-12.0 [facility] Comment on above: Performed By: #### C BC #### [facility] [address] [place] [address] Dr. Epi Goldstein NEUT # 16.0 103/ul Critically high 1.4-6.5 [facility] Comment on above: Performed By: #### C BC #### [facility] [address] [address] [address] Epi Goldstein Neutrophils/100 WBC (Bld) 77.6 % Critically high 43.0-75.0 [facility] Comment on above: Performed By: #### C BC #### [facility] [address] [address] [address] Epi Goldstein Platelet mean volume (Bld) [Entitic vol] 9.9 fL Normal 9.5-13.5 [facility] Comment on above: Performed By: #### C BC #### [facility] [address] [address] [address] Epi Goldstein PLT 359 103/ul Normal 150-450 [facility] Comment on above: Performed By: #### C BC #### [facility] [address] [place] [address] Dr. Epi Goldstein RBC 3.94 106/ul Critically low 4.70-6.10 [facility] Comment on above: Performed By: #### C BC #### [facility] [address] [address] [address] Epi Goldstein WBC 20.6 103/ul Critically high 4.0-11.0 [facility] Comment on above: Result Comment: revi ewed slide to confirm Performed By: #### C BC #### [facility] [address] [place] [address] Dr. Epi Goldstein CTA CHEST WO W [...] by: SKYE WOODS Date: 2022-11-04 21:02 Normal [facility] CULTURE BLOODon 11-04-2022 Microscopic examination of blood, culture Culture Observations: NO GROWTH AT 5 DAYS. Normal [facility] Comment on above: Performed By: #### L ACT #### [facility] [address] [place] [address] Dr. Epi Goldstein Microscopic examination of blood, culture Culture Observations: NO GROWTH AT 5 DAYS. Normal [facility] Comment on above: Performed By: #### L ACT #### [facility] [address] [place] [address] Dr. Epi Goldstein D-DIMERon 11-04-2022 D-DIMER 0.96 mg/L FEU Critically high <=0.59 [facility] Comment on above: Performed By: #### D DIM #### [facility] [address] [place] [address] Dr. Epi Goldstein D-DIMER COMMENTS SEE BELOW Normal [facility] Comment on above: Result Comment: [...] hospitalization. Performed By: #### D DIM #### [facility] [address] [place] [address] Dr. Epi Goldstein LACTATE/LACTIC ACIDon 2022 Lactate [Moles/Vol] 0.8 mmol/L Normal 0.4-2.0 [facility] Comment on above: Performed By: #### L ACT #### [facility] [address] [place] [address] Dr. Epi Goldstein PROF CHEM 8 (BAS METB)on Anion gap [Moles/Vol] 9.2 mmol/L Normal [facility] Comment on above: Performed By: #### B SARA HAMEED #### [facility] [address] [place] [address] Dr. Epi Goldstein Calcium [Mass/Vol] 8.9 mg/dL Normal 8.5-10.1 [facility] Comment on above: Performed By: #### B SARA HAMEED #### [facility] [address] [place] [address] Dr. Epi Goldstein Chloride [Moles/Vol] 101 mmol/L Normal 98-107 [facility] Comment on above: Performed By: #### B SARA HAMEED #### [facility] [address] [place] [address] Dr. Epi Goldstein CO2 [Moles/Vol] 29.1 mmol/L Normal 21.0-32.0 [facility] Comment on above: Performed By: #### B MP, CMADM #### [facility] [address] [address] [address] Epi Goldstein Creatinine [Mass/Vol] 0.71 mg/dL Normal 0.70-1.30 [facility] Comment on above: Performed By: #### B YOSEPH, CMADM #### [facility] [address] [address] [address] Epi Goldstein EGFR-AF MAURITIAN >60 Normal >=60 [facility] Comment on above: Performed By: #### B YOSEPH, CMADM #### [facility] [address] [address] [address] Epi Goldstein EGFR-NON AF MAURITIAN >60 Normal >=60 [facility] Comment on above: Performed By: #### B YOSEPH, CMADM #### [facility] [address] [address] [address] Epi Goldstein Glucose [Mass/Vol] 105 mg/dL Normal 74-106 [facility] Comment on above: Performed By: #### B YOSEPH, CMADM #### [facility] [address] [address] [address] Epi Goldstein Potassium [Moles/Vol] 3.3 mmol/L Critically low 3.5-5.1 [facility] Comment on above: Performed By: #### B YOSEPH, CMADM #### [facility] [address] [address] [address] Epi Goldstein Sodium [Moles/Vol] 136 mmol/L Normal 136-[address] [facility] Comment on above: Performed By: #### B YOSEPH, CMADM #### [facility] [address] [address] [address] Epi Goldstein Urea nitrogen [Mass/Vol] 10.0 mg/dL Normal 7.0-18.0 [facility] Comment on above: Performed By: #### B YOSEPH, CMADM #### [facility] [address] [address] [address] Epi Goldstein Urea nitrogen/Creatinine [Mass ratio] 14.1 mg/mg Normal [facility] Comment on above: Performed By: #### B YOSEPH, CMADM #### [facility] [address] [place] [address] Dr. Epi Goldstein RESPIRATORY PANEL PLUSon Adenovirus Not detected Normal NOT DETECTED [facility] Comment on above: Performed By: #### R SPLUS #### [facility] [address] [place] [address] Dr. Epi Miller Parapertusis Not detected Normal NOT DETECTED [facility] Comment on above: Performed By: #### R SPLUS #### [facility] [address] [place] [address] Dr. Epi Miller Pertussis Not detected Normal NOT DETECTED [facility] Comment on above: Performed By: #### R SPLUS #### [facility] [address] [place] [address] Dr. Epi Goldstein Chlamydia Pneumoniae Not detected Normal NOT DETECTED [facility] Comment on above: Performed By: #### R SPLUS #### [facility] [address] [place] [address] Dr. Epi Goldstein Coronavirus 229E Not detected Normal NOT DETECTED [facility] Comment on above: Performed By: #### R SPLUS #### [facility] [address] [place] [address] Dr. Epi Goldstein Coronavirus HKU1 Not detected Normal NOT DETECTED [facility] Comment on above: Performed By: #### R SPLUS #### [facility] [address] [place] [address] Dr. Epi Goldstein Coronavirus NL63 Not detected Normal NOT DETECTED [facility] Comment on above: Performed By: #### R SPLUS #### [facility] [address] [place] [address] Dr. Epi Goldstein Coronavirus OC43 Not detected Normal NOT DETECTED [facility] Comment on above: Performed By: #### R SPLUS #### [facility] [address] [place] [address] Dr. Epi Goldstein Influenza A H1 Not detected Normal NOT DETECTED [facility] Comment on above: Performed By: #### R SPLUS #### [facility] [address] [place] [address] Dr. Epi Goldstein Influenza A H1 2009 Not detected Normal NOT DETECTED [facility] Comment on above: Performed By: #### R SPLUS #### [facility] [address] [place] [address] Dr. Epi Goldstein Influenza A H3 Not detected Normal NOT DETECTED [facility] Comment on above: Performed By: #### R SPLUS #### [facility] [address] [place] [address] Dr. Epi Goldstein Influenza B Not detected Normal NOT DETECTED [facility] Comment on above: Performed By: #### R SPLUS #### [facility] [address] [place] [address] Dr. Epi Goldstein Metapneumovirus Not detected Normal NOT DETECTED [facility] Comment on above: Performed By: #### R SPLUS #### [facility] [address] [place] [address] Dr. Epi Goldstein Mycoplas. Pneumoniae Not detected Normal NOT DETECTED [facility] Comment on above: Performed By: #### R SPLUS #### [facility] [address] [place] [address] Dr. Epi Goldstein Parainfluenza 1 Not detected Normal NOT DETECTED [facility] Comment on above: Performed By: #### R SPLUS #### [facility] [address] [place] [address] Dr. Epi Goldstein Parainfluenza 2 Not detected Normal NOT DETECTED [facility] Comment on above: Performed By: #### R SPLUS #### [facility] [address] [place] [address] Dr. Epi Goldstein Parainfluenza 3 Not detected Normal NOT DETECTED [facility] Comment on above: Performed By: #### R SPLUS #### [facility] [address] [place] [address] Dr. Epi Goldstein Parainfluenza 4 Not detected Normal NOT DETECTED [facility] Comment on above: Performed By: #### R SPLUS #### [facility] [address] [place] [address] Dr. Epi Goldstein Rhino/Enterovirus Not detected Normal NOT DETECTED [facility] Comment on above: Performed By: #### R SPLUS #### [facility] [address] [place] [address] Dr. Epi Goldstein RP2 Header 1 RESPIRATORY PANEL: VIRUSES Normal [facility] Comment on above: Performed By: #### R SPLUS #### [facility] [address] [place] [address] Dr. Epi Goldstein RP2 Header 2 RESPIRATORY PANEL: BACTERIA Normal [facility] Comment on above: Performed By: #### R SPLUS #### [facility] [address] [place] [address] Dr. Epi Goldstein RSV Not detected Normal NOT DETECTED [facility] Comment on above: Performed By: #### R SPLUS #### [facility] [address] [place] [address] Dr. Epi Goldstein SARS-CoV-2 (COVID-19) RNA ROWENA+probe Ql (Unsp spec) Not detected Normal NOT DETECTED [facility] Comment on above: Performed By: #### R SPLUS #### [facility] [address] [place] [address] Dr. Epi Goldstein Covid-19 PCR ([facility])on 08-10 SARS-CoV-2 (COVID-19) RNA ROWENA+probe Ql (Unsp spec) Not detected Normal NOT DETECTED [facility] Comment on above: Result Comment: When diagnostic [...] for this test is supported by the [place] of Health and Human Service's declaration that [...] used). Performed By: #### L ACT #### [facility] [address] [place] [address] Dr. Epi Goldstein INFLUENZA A AND B AGon 08-27 [facility] SEE BELOW Normal [facility] Comment on above: Result Comment: Nega tive for Flu A protein angiten. Infection due to Flu A cannot be ruled out. Flu A angiten in the sample may be below the detection limit of the test. Performed By: #### L ACT #### [facility] [address] [place] [address] Dr[facility] Normal [facility] Comment on above: Result Comment: Nega tive for Flu B protein antigen. Infection due to Flu B cannot be ruled out. Flu B antigen in the sample may be below the detection limit of the test. Performed By: #### L ACT #### [facility] [address] [place] [address] Dr. Epi Goldstein INFLUENZA A AG Negative Normal NEGATIVE SEE COMMENT [facility] Comment on above: Performed By: #### L ACT #### [facility] [address] [place] [address] Dr. Epi Goldstein INFLUENZA B AG Negative Normal NEGATIVE SEE COMMENT [facility] Comment on above: Performed By: #### L ACT #### [facility] [address] [place] [address] Dr. Epi Goldstein XR CHEST 1 Von [...] by: LORI RODRIGUEZ Date: 2022-08-27 20:19 Normal [facility] In office Testingon 08-24-19 23 In office Testing [id number]#1.00CD:1 27 Normal [facility] Cons[place] 08-09-2022 Consent [id number]#1.00CD:12 7 [facility] Registrationon 08-09-2022 Registration [id number]#1.00CD:12 7 [facility] COVID/FLU/RSV RT-PCRon 07-07 SARS-CoV-2 (COVID-19) RNA ROWENA+probe Ql (Unsp spec) Positive [facility] 1calendar Other COVID/FLU/RSV RT-PCR Negative [facility] 1calendar Other [place] 05-25-2022 Consent [id number]#1.00CD:12 7 [facility] Registrationon 05-25-2022 Registration [id number]#1.00CD:12 7 [facility] CBC AUTO DIFFon 03-12-2022 BASO # 0.1 103/ul Normal 0.0-0.1 [facility] Comment on above: Performed By: #### C BC #### [facility] [address] [place] [address] Dr. Epi Goldstein Basophils/100 WBC (Bld) 0.9 % Normal 0.2-2.0 [facility] Comment on above: Performed By: #### C BC #### [facility] [address] [place] [address] Dr. Epi Goldstein EO # 0.4 103/ul Normal 0.0-0.7 [facility] Comment on above: Performed By: #### C BC #### [facility] [address] [address] [address] Epi Goldstein Eosinophils/100 WBC (Bld) 4.4 % Normal 0.9-7.0 [facility] Comment on above: Performed By: #### C BC #### [facility] [address] [place] [address] Dr. Epi Goldstein Erythrocyte distribution width (RBC) [Ratio] 12.4 % Normal 11.0-15.0 [facility] Comment on above: Performed By: #### C BC #### [facility] [address] [place] [address] Dr. Epi Goldstein Hematocrit (Bld) [Volume fraction] 35.1 % Critically low 42.0-54.0 [facility] Comment on above: Performed By: #### C BC #### [facility] [address] [place] [address] Dr. Epi Goldstein Hemoglobin (Bld) [Mass/Vol] 11.8 g/dL Critically low 14.0-18.0 [facility] Comment on above: Performed By: #### C BC #### [facility] [address] [place] [address] Dr. Epi Goldstein IG # 0.02 10e3/ul Normal 0.00-0.03 [facility] Comment on above: Performed By: #### C BC #### [facility] [address] [place] [address] Dr. Epi Goldstein IG % 0.2 % Normal 0.0-0.5 [facility] Comment on above: Performed By: #### C BC #### [facility] [address] [place] [address] Dr. Epi Goldstein LYMPH # 2.9 103/ul Normal 1.2-3.8 [facility] Comment on above: Performed By: #### C BC #### [facility] [address] [place] [address] Dr. Epi Goldstein Lymphocytes/100 WBC (Bld) 29.8 % Normal 20.5-60.0 [facility] Comment on above: Performed By: #### C BC #### [facility] [address] [place] [address] Dr. Epi Goldstein MANUAL DIFF REQ NO Normal [facility] Comment on above: Performed By: #### C BC #### [facility] [address] [place] [address] Dr. Epi Goldstein MCH (RBC) [Entitic mass] 30.7 pg Normal 25.9-34.0 [facility] Comment on above: Performed By: #### C BC #### [facility] [address] [place] [address] Dr. Epi Goldstein MCHC (RBC) [Mass/Vol] 33.6 g/dL Normal 29.9-35.2 [facility] Comment on above: Performed By: #### C BC #### [facility] [address] [place] [address] Dr. Epi Goldstein MCV (RBC) [Entitic vol] 91.4 fL Normal 80.0-94.0 [facility] Comment on above: Performed By: #### C BC #### [facility] [address] [place] [address] Dr. Epi Goldstein MONO # 0.8 103/ul Normal 0.3-0.8 [facility] Comment on above: Performed By: #### C BC #### [facility] [address] [place] [address] Dr. Epi Goldstein Monocytes/100 WBC (Bld) 8.1 % Normal 1.7-12.0 [facility] Comment on above: Performed By: #### C BC #### [facility] [address] [place] [address] Dr. Epi Goldstein NEUT # 5.5 103/ul Normal 1.4-6.5 [facility] Comment on above: Performed By: #### C BC #### [facility] [address] [place] [address] Dr. Epi Goldstein Neutrophils/100 WBC (Bld) 56.6 % Normal 43.0-75.0 [facility] Comment on above: Performed By: #### C BC #### [facility] [address] [place] [address] Dr. Epi Goldstein Platelet mean volume (Bld) [Entitic vol] 10.2 fL Normal 9.5-13.5 [facility] Comment on above: Performed By: #### C BC #### [facility] [address] [place] [address] Dr. Epi Goldstein PLT 237 103/ul Normal 150-450 [facility] Comment on above: Performed By: #### C BC #### [facility] [address] [place] [address] Dr. Epi Goldstein RBC 3.84 106/ul Critically low 4.70-6.10 [facility] Comment on above: Performed By: #### C BC #### [facility] [address] [place] [address] Dr. Epi Goldstein WBC 9.7 103/ul Normal 4.0-11.0 [facility] Comment on above: Performed By: #### C BC #### [facility] [address] [place] [address] Dr. Epi Goldstein PROF CHEM 8 (BAS METB)on Anion gap [Moles/Vol] 13.2 mmol/L Normal [facility] Comment on above: Performed By: #### B MP #### [facility] [address] [place] [address] Dr. Epi Goldstein Calcium [Mass/Vol] 8.3 mg/dL Critically low 8.5-10.1 [facility] Comment on above: Performed By: #### B MP #### [facility] [address] [place] [address] Dr. Epi Goldstein Chloride [Moles/Vol] 105 mmol/L Normal 98-107 [facility] Comment on above: Performed By: #### B MP #### [facility] [address] [place] [address] Dr. Epi Goldstein CO2 [Moles/Vol] 26.7 mmol/L Normal 21.0-32.0 [facility] Comment on above: Performed By: #### B MP #### [facility] [address] [place] [address] Dr. Epi Goldstein Creatinine [Mass/Vol] 0.76 mg/dL Normal 0.70-1.30 [facility] Comment on above: Performed By: #### B MP #### [facility] [address] [place] [address] Dr. Epi Goldstein EGFR-AF MAURITIAN >60 Normal >=60 [facility] Comment on above: Performed By: #### B MP #### [facility] [address] [address] [address] Epi Goldstein EGFR-NON AF MAURITIAN >60 Normal >=60 [facility] Comment on above: Performed By: #### B MP #### [facility] [address] [address] [address] Epi Goldstein Glucose [Mass/Vol] 127 mg/dL Critically high 74-106 [facility] Comment on above: Performed By: #### B MP #### [facility] [address] [address] [address] Epi Goldstein Potassium [Moles/Vol] 3.9 mmol/L Normal 3.5-5.1 [facility] Comment on above: Performed By: #### B MP #### [facility] [address] [address] [address] Epi Goldstein Sodium [Moles/Vol] 141 mmol/L Normal 136-145 [facility] Comment on above: Performed By: #### B MP #### [facility] [address] [address] [address] Epi Goldstein Urea nitrogen [Mass/Vol] 14.0 mg/dL Normal 7.0-18.0 [facility] Comment on above: Performed By: #### B MP #### [facility] [address] [address] [address] Epi Goldstein Urea nitrogen/Creatinine [Mass ratio] 18.4 mg/mg Normal [facility] Comment on above: Performed By: #### B MP #### [facility] [address] [address] [address] Epi Goldstein US JAMES DOP LEG [...] by: LORI DOWNEY Date: 2022-03-12 13:59 Normal [facility] XR TIB_FIB LT 2Von 2 XR TIB_FIB [...] MERI SIMPSON Date: 2022-03-12 14:19 Normal [facility] CNOVon 12-14-2018 CNOV Office Visit (PAINLN ) ----- LORI ANTON ([id number]) 1965 M Date Time Provider Department 12/14/18 10:15 AM STEVE WILSON During your visit today, we recorded the following information about you: Pulse Weight 63/minute 104.8 kg Steve Wilson DO 12/14/2018 10:53 AM Signed [facility] Initial Evaluation December 14, 2018 - 9:54 AM This appointment was requested by Bryce CUADRA, for my medical opinion regarding? the evaluation and management of the patient's LORI Anton problems, and my final recommendations will be communicated to the requesting health care provider by way of the shared medical record for internal providers or letter via the [employer] for external providers. 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 Passive conservative therapy lasting 6 weeks [...] 14, 2018 Referring Provider: BRYCE GLASS (KHALIF) [[id number]] Allergies As of Date: 12/14/2018 Noted Allergy [...] knee [M25.561, G89.29] Order(s):CONSULT TO PHYSICAL THERAPY [9084] Order #: [id number]: 1 tiZANidine (ZANAFLEX) 4 mg tabletTake 1 [...] by STEVE WILSON DO on 12/14/18 Normal [facility] CNOV Office Visit (LOORRM ) ----- LORI ANTON ([id number]) 1965 M Date Time Provider Department 12/14/18 [...] CONSULT TO PHYSICAL THERAPY [9032] Order #: [id number]: 1 CONSULT TO PAIN MGT ANESTHESIA [845526] Order #: [id number]: 1 Prescriptions as of 12/14/2018 Sig: CARVEDILOL [...] Status:Closed by BRYCE GLASS on 12/14/18 Normal [facility] PROGRESSon 12-14-2018 Protein mass conc HNO ID: [id number] Author: Steve Wilson Service: ? Author Type: Physician Type: Progress Notes Filed: 12/14/2018 10:53 AM Note Text: [facility] Initial Evaluation December 14, 2018 - 9:54 AM This appointment was requested by Bryce CUADRA, for my medical opinion regarding? the evaluation and management of the patient's LORI Anton problems, and my final recommendations will be communicated to the requesting health care provider by way of the shared medical record for internal providers or letter via the [employer] for external providers. 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 Passive conservative therapy lasting 6 weeks [...] Steve Wilson, DO December 14, 2018 Normal [facility] Protein mass conc HNO ID: [id number] Author: Bryce Glass (Pa) Service: ? Author Type: Physician Billing Assistant Type: Progress Notes Filed: 12/14/2018 9:30 AM [...] back. PROCEDURE: None. Bryce Glass PA-C Normal [facility] CNOVon 10-11-2018 CNOV Office Visit (LOORRM ) ----- LORI ANTON ([id number]) 1965 M Date Time Provider Department 10/11/18 [...] experiencing run in your family? 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 Service: ? Author [...] the injections well. Theodore Gonzalez Jr, MD [facility] mass [facility] HNO ID: [id number] Author: Pallavi Pritchett (Rt) Vinh Glass Service: ? Author Type: Tobacco Sprayer Type: Progress Notes Filed: 10/11/2018 10:07 AM [...] Wendy October 11, 2018 10:07 AM Normal [facility] XR KNEE 4V AP/PA/LAT/MERCH B ILon [...] age. 2.1 cm left posterolateral joint body. [employer] Broker: RUPESH Transcribe Date/Time: Oct 11 2018 10:14A Dictated by : ACE BUSTAMANTE MD This examination was interpreted and the report reviewed and electronically signed by: ACE BUSTAMANTE MD on Oct 11 2018 10:18AM EST [id number] Normal [facility] Vital Signs Date Time Vital Sign Value Performing Clinician Facility 07-31-2023 19:51-0500 Body height 190.5 cm Shaista Aichholz Work Phone: [facility] 07-31-2023 19:51-0500 Body temperature 100.1 [degF] Shaista Aichholz Work Phone: [facility] 07-31-2023 19:51-0500 Body weight 92.98 kg Shaista Aichholz Work Phone: [facility] 07-31-2023 19:51-0500 Diastolic blood pressure 78 mm[Hg] Shaista Aichholz Work Phone: [facility] 07-31-2023 19:51-0500 Heart rate 96 /min Shaista Aichholz Work Phone: [facility] 07-31-2023 19:51-0500 Respiratory rate 16 /min Shaista Aichholz Work Phone: [facility] 07-31-2023 19:51-0500 SaO2% (BldA) [Mass fraction] 98 % Shaista Aichholz Work Phone: [facility] 07-31-2023 19:51-0500 Systolic blood pressure 133 mm[Hg] Shaista Aichholz Work Phone: [facility] 12-28-2022 08:30-0400 Body height 190.5 cm Bakaridevon Huitron Other [facility] Other 12-28-2022 08:30-0400 Body mass index (BMI) [Ratio] 25.77 kg/m2 Ismael Huitron Other [facility] Other 12-28-2022 08:30-0400 Body temperature 98.1 [degF] Ismael Huitron Other [facility] Other 12-28-2022 08:30-0400 Body weight 93.53 kg Ismael Huitron Other [facility] Other 12-28-2022 08:30-0400 Diastolic blood pressure 92 mm[Hg] Ismael Juárezban Other [facility] Other 12-28-2022 08:30-0400 Respiratory rate 20 /min Imsael Huitron Other [facility] Other 12-28-2022 08:30-0400 SaO2% (BldA) [Mass fraction] 98 % Ismael Huitron Other [facility] Other 12-28-2022 08:30-0400 Systolic blood pressure 152 mm[Hg] Ismael Huitron Other [facility] Other 12-08-2022 21:30-0400 Diastolic blood pressure 87 mm[Hg] Shaista Aichholz Work Phone: [facility] 12-08-2022 21:30-0400 Heart rate 65 /min Shaista Aichholz Work Phone: [facility] 12-08-2022 21:30-0400 Respiratory rate 18 /min Shaista Aichholz Work Phone: [facility] 12-08-2022 21:30-0400 SaO2% (BldA) [Mass fraction] 96 % Shaista Aichholz Work Phone: [facility] 12-08-2022 21:30-0400 Systolic blood pressure 134 mm[Hg] Shaista Aichholz Work Phone: [facility] 12-08-2022 19:30-0400 Body temperature 98.1 [degF] Shaista Aichholz Work Phone: [facility] 12-08-2022 17:36-0400 Body height 190.5 cm Shaista Aichholz Work Phone: [facility] 12-08-2022 17:36-0400 Body weight 91.1 kg Shaista Aichholz Work Phone: [facility] 11-21-2022 12:00-0400 Body temperature 98.1 [degF] Shaista Aichholz Work Phone: [facility] 11-21-2022 12:00-0400 Diastolic blood pressure 73 mm[Hg] Shaista Aichholz Work Phone: [facility] 11-21-2022 12:00-0400 Heart rate 74 /min Shaista Aichholz Work Phone: [facility] 11-21-2022 12:00-0400 Inhaled oxygen flow rate 4 L/min Shaista Aichholz Work Phone: [facility] 11-21-2022 12:00-0400 Respiratory rate 18 /min Shaista Aichholz Work Phone: [facility] 11-21-2022 12:00-0400 SaO2% (BldA) [Mass fraction] 95 % Shaista Aichholz Work Phone: [facility] 11-21-2022 12:00-0400 Systolic blood pressure 135 mm[Hg] Shaista Aichholz Work Phone: [facility] 11-21-2022 03:52-0400 Body weight 97.1 kg Shaista Aichholz Work Phone: [facility] 11-18-2022 09:00-0400 Inhaled oxygen concentration 40 % Shaista Aichholz Work Phone: [facility] 11-17-2022 13:54-0400 Body height 190.5 cm Shaista Robinisiahsushma Work Phone: [facility] 07-07-2022 17:45-0500 Body height 190.5 cm Supriya Kevin Other [facility] Other 07-07-2022 17:45-0500 Body mass index (BMI) [Ratio] 28.12 kg/m2 Supriya Kevin Other [facility] Other 07-07-2022 17:45-0500 Body temperature 100.5 [degF] Supriya Brown Other [facility] Other 07-07-2022 17:45-0500 Body weight 102.06 kg Supriya Brown Other [facility] Other 07-07-2022 17:45-0500 Diastolic blood pressure 84 mm[Hg] Supriya Brown Other [facility] Other 07-07-2022 17:45-0500 Respiratory rate 18 /min Supriya Brown Other [facility] Other 07-07-2022 17:45-0500 SaO2% (BldA) [Mass fraction] 97 % Supriya Brown Other [facility] Other 07-07-2022 17:45-0500 Systolic blood pressure 123 mm[Hg] Supriya Brown Other [facility] Other Encounters Encounter Date Encounter Type Care Provider Facility Start: 08-30-2023 End: 02-21-2024 ambulatory SHAISTA CJ Not Available Start: 07-31-2023 End: 08-01-2023 Emergency department patient visit Ej Garcia Facility:[facility] Start: 07-31-2023 End: 07-31-2023 Emergency department patient visit Shaista Robinisiahsushma Work Phone: [facility] Work Phone: Start: 05-23-2023 End: 05-24-2023 ambulatory Gregg PATTEN Facility:[facility] Start: 12-28-2022 End: 12-28-2022 ambulatory Ismael Huitron Other [facility] Other Start: 12-28-2022 Office outpatient visit 25 minutes Ismael Huitron [facility] Start: 12-26-2022 End: 12-26-2022 ambulatory Shaista Whittaker Cj Facility:[facility] Start: 12-26-2022 End: 12-26-2022 ambulatory Shaista Whittaker Jeannettesheila Work Phone: [facility] Work Phone: Start: 12-26-2022 End: 12-26-2022 Patient encounter procedure Shaista Corona Work Phone: [facility] [place] Work Phone: Start: 12-15-2022 End: 12-16-2022 ambulatory Rosa Christopher CORTEZ Facility:[facility] Start: 12-08-2022 End: 12-08-2022 Emergency department patient visit Lisha Silva Facility:[facility] Start: 12-08-2022 End: 12-08-2022 Emergency department patient visit Shaista Cj Work Phone: [facility] Work Phone: Start: 11-05-2022 End: 11-21-2022 Evaluation and management of inpatient Sanjay Holt Facility:[facility] Start: 11-05-2022 End: 11-21-2022 Evaluation and management of inpatient Shaista Aichholz Work Phone: [facility] [place] [facility] Work Phone: Start: 11-04-2022 End: 11-05-2022 ambulatory RADHA CORONA Facility:[facility] Start: 11-03-2022 End: 11-03-2022 ambulatory RADHA CORONA Facility:[facility] Start: 08-27-2022 End: 08-27-2022 ambulatory CATRACHITO ALONZO . Facility:[facility] Start: 08-09-2022 End: 08-10-2022 ambulatory Gregg HOLLOWAY Facility:[facility] Start: 07-07-2022 End: 07-07-2022 ambulatory Supriya Brown Other [facility] Other Start: 07-07-2022 Office outpatient ne w 20 minutes Supriya Brown [facility] [place] Start: 05-25-2022 End: 05-26-2022 ambulatory Gregg HOLLOWAY Facility[facility] Start: 03-12-2022 [...] Care Activity Detail Author Start: 11-21-2022 [facility] Start: 11-20-2022 Administration of prophylactic treatment [facility] Start: 11-19-2022 Physical therapy procedure [facility] Start: 11-17-2022 Blood culture for bacteria, including anaerobic screen Blood Culture [facility] Start: 11-17-2022 Fungal Culture Result 2 Fungal Culture Result 2 [facility] Start: 11-17-2022 Mycology culture [facility] Start: 11-14-2022 [facility] Start: 11-06-2022 Referral to infectious diseases physician [facility] Start: 11-05-2022 Drainage of Right Pleural Cavity with Drainage Device, Percutaneous Approach Drainage of Right Pleural Cavity with Drainage Device, Percutaneous Approach [facility] Start: 11-05-2022 Insertion of Endotracheal Airway into Trachea, Via Natural or Artificial Opening Insertion of Endotracheal Airway into Trachea, Via Natural or Artificial Opening [facility] Start: 11-05-2022 Insertion of Infusion Device into Superior Vena Cava, Percutaneous Approach Insertion of Infusion Device into Superior Vena Cava, Percutaneous Approach [facility] Start: 11-05-2022 Inspection of Tracheobronchial Tree, Via Natural or Artificial Opening Endoscopic Inspection of Tracheobronchial Tree, Via Natural or Artificial Opening Endoscopic [facility] Start: 11-05-2022 Irrigation of Respiratory Tract using Irrigating Substance, Via Natural or Artificial Opening Endoscopic, Diagnostic Irrigation of Respiratory Tract using Irrigating Substance, Via Natural or Artificial Opening Endoscopic, Diagnostic [facility] Start: 11-05-2022 Respiratory Ventilation, Greater than 96 Consecutive Hours Respiratory Ventilation, Greater than 96 Consecutive Hours [facility] Start: 11-05-2022 Sleep disorder assessment [facility] Start: 11-05-2022 Consultation [facility] Start: 11-05-2022 Hospital admission [facility] Fungus identified in Unspecified specimen by Culture [facility] Mycobacterium sp identified in Unspecified specimen by Organism specific culture [facility] Patient Education [facility] Work Phone: Patient referral [facility] Work Phone: XR Chest 2 Views [facility] Payers Date Payer Category Payer Self-pay [id number] 1965 Unknown [id number] 2.16.84 [id number] 1965 Unknown [id number] 2.16.84 [id number] 1965 Unknown [id number] 2.16.84 [id number] 1965 Unknown [id number] 2.16.84 [id number] 1965 Unknown [id number] 2.16.84 [id number] 1957 [facility] [id number] Unknown [id number] 2.16.8 [id number] Unknown [id number] 2.16.8 [id number] Unknown [id number] 2.16.8 [id number] Unknown [id number] 2.16.8 [id number] Social History Date Type Detail Facility Sex Assigned At [place] [facility] Other Start: 11-07-2022 End: 12-08-2022 Tobacco smoking status NHIS Smoker (finding) [facility] Start: 1965 Sex Assigned At Male F [facility] Start: 07-31-2023 Tobacco smoking stat us NHIS Current some day smoker [facility] Goals Date Patient Goal Desired Activity /State Functional Status Date Assessment Result Facility 11-21-2022 Functional status 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 Baseline [facility] Work Phone: Mental Status Date Assessment Result Facility 11-21-2022 Cognitive function Cognitive Sta tus Patient is Progressing Toward Baseline [facility] Work Phone: Clinical Notes 07-07-2022 to 12-28-2022 Note Date & Type Note Facility 12-28-2022 Evaluation note Encounter Date Diagnosis Assessment Notes Dec, Pneumonia of right lower lobe due to infectious organism (ICD-10 - J18.9) Dec, History of pneumothorax (ICD-10 - Z87.09) Dec, Tobacco use disorder (ICD-10 - F17.200) [facility] [email or web address] [facility] Other 05-15-2023 Progress note Author Ismael Huitron [facility] November 21, 2022 11:17am Note Date/Time November 21, 2022 11:17 am [facility] [address] [place] [address] Pulmonology Progress Note Signed Patient: Lori Anton MR#: [id number] : 1965 Acct:[id number] Age/Sex: 57 / M Adm Date: 3 Loc: Room: [address] [place] [address] Type: ADM IN Attending Dr: Rubi Ramos [...] that Documented By: Ismael Huitron MD 11/21/22 2000 Signed By: <Electronically signed by Ismael Huitron MD> 11/21/22 1117 [facility] Work Phone: 1(142) 986-792105-15-2023 Progress note Author Sanjay Holt [facility] November 21, 2022 9:14am Note Date/Time November 21, 2022 9:15a m [facility] [address] [place] [address] Infect. Disease Progress Note Signed Patient: Lori Anton MR#: [id number] : 1965 Acct:[id number] Age/Sex: 57 / M Adm Date: 3 Loc: Room: [address] [place] [address] Type: ADM IN Attending Dr: Rubi Ramos [...] Tab.Subl) 2 mg SUBLINGUAL BID [facility] Stop: 05/18/23 09:26 Last Admin: 11/20/22 22:02 Dose: 2 mg Docusate Sodium (Docusate 100 Mg Capsule) 100 mg PO BID PRN PRN Reason: Constipation Stop: 11/18/23 10:23 Enoxaparin Sodium (Enoxaparin 40 Mg/0.4 Ml Syringe) 40 mg SUBCUT DAILY@1000 [facility] Stop: 11/06/23 09:59 Last Admin: 11/20/22 09:03 Dose: 40 mg Fluoxetine HCl (Fluoxetine 20 Mg Capsule) 40 mg PO HS [facility] Stop: 11/20/23 21:59 Last Admin: 11/20/22 22:02 Dose: 40 mg Fluoxetine HCl (Fluoxetine 20 Mg Capsule) 20 mg PO DAILY@0600 [facility] Stop: 11/20/23 05:59 Last Admin: 11/21/22 05:46 Dose: 20 mg Heparin Sodium (Porcine) (Heparin-Lock 500 Unit/5 Ml Syringe) 0 unit IV-PUSH QSHIFT [facility] Stop: 11/14/23 21:59 Last Admin: 11/21/22 05:46 Dose: 500 unit Linezolid (Zyvox) 600 mg in 300 mls @ 300 mls/hr IV Q12H [facility] Last Admin: 11/20/22 22:02 Dose: 300 mls/hr Meropenem (Merrem) 1 gm in 100 mls @ 33.333 mls/hr IV Q8H [facility] Last Admin: 11/21/22 03:48 Dose: 33.3 mls/hr Lidocaine HCl (Lidocaine 1% Pf 5 Ml Inj.Zara) 10 ml INFILTRATN ONCE PRN PRN Reason: Pain Metoprolol Tartrate (Metoprolol Tartrate 12.5 Mg Tablet) 12.5 mg PO BID [facility] Stop: 11/18/23 20:59 Last Admin: 11/20/22 22:02 [...] <Electronically signed by MD Sanjay Holt> 11/21/2214 [facility] Work Phone: 1([phone]) 171-105105-14-2023 Progress note Author Shant Villegas [facility] November 20, 2022 3:35pm Note Date/Time November 20, 2022 3:35p m [facility] [address] [place] [address] Hospitalist Progress Note Signed Patient: Lori Anton MR#: [id number] : 1965 Acct:[id number] Age/Sex: 57 / M Adm Date: 3 Loc: Room: 9E6739-1 Type: ADM IN Attending Dr: Shant Villegas [...] cough, and right-sided chest pain to the [facility] ED and Transferred for the evaluation and [...] signed by Shant Villegas MD> 11/20/22 1535 [facility] Work Phone: 1(763) 311-935305-14-2023 Progress note Author Ismael Huitron [facility] November 20, 2022 1:40pm Note Date/Time November 20, 2022 1:40p m [facility] [address] [place] [address] Pulmonology Progress Note Signed Patient: Lori Anton MR#: [id number] : 1965 Acct:[id number] Age/Sex: 57 / M Adm Date: 3 Loc: 4 Room: [address] [place] [address] Type: ADM IN Attending Dr: Shant Villegas [...] planning Documented By: Ismael Huitron MD 11/20/22 5821 Signed By: <Electronically signed by Ismael Huitron MD> 11/20/22 1340 [facility] Work Phone: [phone]) 511-934505-14-2023 Progress note Author Sanjay Holt [facility] November 20, 2022 9:05am Note Date/Time November 20, 2022 9:05a m [facility] [address] [place] [address] Infect. Disease Progress Note Signed Patient: Lori nAton MR#: [id number] : 1965 Acct:[id number] Age/Sex: 57 / M Adm Date: 3 Loc: Room: [address] [place] [address] Type: ADM IN Attending Dr: Shant Villegas [...] Tab.Subl) 2 mg SUBLINGUAL BID [facility] Stop: 05/18/23 09:26 Last Admin: 11/20/22 08:23 Dose: 2 mg Docusate Sodium (Docusate 100 Mg Capsule) 100 mg PO BID PRN PRN Reason: Constipation Stop: 11/18/23 10:23 Enoxaparin Sodium (Enoxaparin 40 Mg/0.4 Ml Syringe) 40 mg SUBCUT DAILY@1000 [facility] Stop: 11/06/23 09:59 Last Admin: 11/19/22 09:06 Dose: 40 mg Fluoxetine HCl (Fluoxetine 20 Mg Capsule) 40 mg PO HS [facility] Stop: 11/20/23 21:59 Fluoxetine HCl (Fluoxetine 20 Mg Capsule) 20 mg PO DAILY@0600 [facility] Stop: 11/20/23 05:59 Last Admin: 11/20/22 06:04 Dose: 20 mg Heparin Sodium (Porcine) (Heparin-Lock 500 Unit/5 Ml Syringe) 0 unit IV-PUSH QSHIFT [facility] Stop: 11/14/23 21:59 Last Admin: 11/20/22 06:04 Dose: 2,000 unit Linezolid (Zyvox) 600 mg in 300 mls @ 300 mls/hr IV Q12H [facility] Last Admin: 11/20/22 00:33 Dose: 300 mls/hr Meropenem (Merrem) 1 gm in 100 mls @ 33.333 mls/hr IV Q8H [facility] Last Admin: 11/20/22 03:00 Dose: 33.33 mls/hr Lidocaine HCl (Lidocaine 1% Pf 5 Ml Inj.Zara) 10 ml INFILTRATN ONCE PRN PRN Reason: Pain Melatonin (Melatonin 5 Mg Tablet) 5 mg PO QHS [facility] Stop: 11/19/23 21:59 Last Admin: 11/19/22 21:12 Dose: 5 mg Metoprolol Tartrate (Metoprolol Tartrate 12.5 Mg Tablet) 12.5 mg PO BID [facility] Stop: 11/18/23 20:59 Last Admin: 11/20/22 08:22 [...] Syringe) 0 ml IV-PUSH QSHIFT [facility] Stop: 11/05/23 05:59 Last Admin: 11/20/22 06:04 [...] <Electronically signed by MD Sanjay Holt> 11/20/22904 [facility] Work Phone: 1(808) 466-215405-13-2023 Progress note Author Shant Villegas [facility] November 19, 2022 1:31pm Note Date/Time November 19, 2022 1:31p m [facility] [address] [place] [address] Hospitalist Progress Note Signed Patient: Lori Anton MR#: [id number] : 1965 Acct:[id number] Age/Sex: 57 / M Adm Date: 3 Loc: Room: [address] [place] [address] Type: ADM IN Attending Dr: Shant Villegas [...] cough, and right-sided chest pain to the [facility] ED and Transferred for the evaluation and [...] <Electronically signed by Shant Villegas MD> 11/19/22 1339 [facility] Work Phone: 1([phone]) [phone] Progress note Author Ismael Huitron [facility] November 19, 2022 12:32pm Note Date/Time November 19, 2022 12:32 pm [facility] [address] [place] [address] Pulmonology Progress Note Signed Patient: Lori Anton MR#: [id number] : 1965 Acct:[id number] Age/Sex: 57 / M Adm Date: 3 Loc: Room: 4C1951-8 Type: ADM IN Attending Dr: Shant Villegas [...] signed by Ismael Huitron MD> 11/19/22 1232 [facility] Work Phone: 1([phone]) 493-323205-13-2023 Progress note Author Sanjay Holt [facility] November 19, 2022 9:45am Note Date/Time November 19, 2022 9:45a m [facility] [address] [place] [address] Infect. Disease Progress Note Signed Patient: Lori Anton MR#: [id number] : 1965 Acct:[id number] Age/Sex: 57 / M Adm Date: 3 Loc: Room: [address] [place] [address] Type: ADM IN Attending Dr: Shant Villegas [...] Tab.Subl) 2 mg SUBLINGUAL BID [facility] Stop: 05/18/23 09:26 Last Admin: 11/19/22 09:33 Dose: 2 mg Docusate Sodium (Docusate 100 Mg Capsule) 100 mg PO BID PRN PRN Reason: Constipation Stop: 11/18/23 10:23 Enoxaparin Sodium (Enoxaparin 40 Mg/0.4 Ml Syringe) 40 mg SUBCUT DAILY@1000 [facility] Stop: 11/06/23 09:59 Last Admin: 11/19/22 09:06 Dose: 40 mg Fluoxetine HCl (Fluoxetine Soln 20 Mg/5 Ml) 40 mg PO HS [facility] Stop: 11/07/23 21:59 Last Admin: 11/16/22 21:14 Dose: 40 mg Fluoxetine HCl (Fluoxetine Soln 20 Mg/5 Ml) 20 mg PO DAILY@0600 [facility] Stop: 11/08/23 05:59 Last Admin: 11/17/22 05:13 Dose: 20 mg Heparin Sodium (Porcine) (Heparin-Lock 500 Unit/5 Ml Syringe) 0 unit IV-PUSH QSHIFT [facility] Stop: 11/14/23 21:59 Last Admin: 11/19/22 06:42 Dose: 500 unit Hydromorphone HCl (Hydromorphone 1 Mg/Ml Syringe) 1 mg IV-PUSH Q4H PRN PRN Reason: Pain Linezolid (Zyvox) 600 mg in 300 mls @ 300 mls/hr IV Q12H [facility] Last Admin: 11/18/22 22:59 Dose: 300 mls/hr Meropenem (Merrem) 1 gm in 100 mls @ 33.333 mls/hr IV Q8H [facility] Last Admin: 11/19/22 09:07 Dose: 33.33 mls/hr [...] Vial) 40 mg IV-PUSH DAILY [facility] Stop: 11/08/23 08:59 Last Admin: 11/19/22 09:06 [...] Syringe) 0 ml IV-PUSH QSHIFT [facility] Stop: 11/05/23 05:59 Last Admin: 11/19/22 06:43 Dose: 10 ml Sodium Chloride (Sodium Chloride 0.9 % 10 Ml Syringe) 10 ml IV-PUSH PRN PRN PRN Reason: Flush Stop: 11/07/23 08:37 Last Admin: 11/15/22 08:11 Dose: 10 ml Sodium Chloride (Sodium Chloride 0.9 % 10 Ml Vial.Pf) 10 ml INJECTION DAILY [facility] Stop: 11/08/23 08:59 Last Admin: 11/19/22 09:06 [...] meropenem. Only new culture result from the [facility] positive was corynebacterium. Patient clinically is better [...] <Electronically signed by MD Sanjay Holt> 11/19/2245 [facility] Work Phone: 1(240) 178-211105-12-2023 Progress note Author Shant Villegas [facility] November 18, 2022 12:45pm Note Date/Time November 18, 2022 12:44 pm [facility] [address] [place] [address] Hospitalist Progress Note Signed Patient: Lori Anton MR#: [id number] : 1965 Acct:[id number] Age/Sex: 57 / M Adm Date: 3 Loc: Room: [address] [place] [address] Type: ADM IN Attending Dr: Shant Villegas [...] cough, and right-sided chest pain to the [facility] ED and Transferred for the evaluation and [...] signed by Shant Villegas MD> 11/18/22 1245 [facility] Work Phone: 1([phone]) 694-863805-12-2023 Progress note Author Ismael Huitron [facility] November 18, 2022 12:09pm Note Date/Time November 18, 2022 11:33 am [facility] [address] [place] [address] Pulmonology Progress Note Signed Patient: Lori Anton MR#: [id number] : 1965 Acct:[id number] Age/Sex: 57 / M Adm Date: 3 Loc: Room: [address] [place] [address] Type: ADM IN Attending Dr: Shant Villegas [...] signed by Ismael Huitron MD> 11/18/22 1209 [facility] Work Phone: 1([phone]) [phone] Progress note Author Sanjay Holt [facility] November 18, 2022 10:49am Note Date/Time November 18, 2022 10:49 am [facility] [address] [place] [address] Infect. Disease Progress Note Signed Patient: Lori Anton MR#: [id number] : 1965 Acct:[id number] Age/Sex: 57 / M Adm Date: 3 Loc: Room: [id number] Type: ADM IN Attending Dr: Shant Villegas [...] ml @ 33.333 mls/hr IV Q8H [facility] Rx#:[id number] fentaNYL 1,000 mcg-*D5W* 1,000 100 / 200 200 / 200 mcg In 100 ml @ 25 MCG/HR 2.5 mls/hr IV .Q24H [facility] Rx#: [id number] propofoL 1,000 mg In 100 ml @ 200 / 400 200 / 200 20 MCG/KG/MIN 12.6 mls/hr IV . Q7H57M [facility] Rx#:[id number] Tube Feeding 982 / 982 Output: Urine [...] Syringe) 40 mg SUBCUT DAILY@1000 [facility] Stop: 11/06/23 09:59 Last Admin: 11/18/22 09:57 Dose: 40 mg Fluoxetine HCl (Fluoxetine Soln 20 Mg/5 Ml) 40 mg PO HS [facility] Stop: 11/07/23 21:59 Last Admin: 11/16/22 21:14 Dose: 40 mg Fluoxetine HCl (Fluoxetine Soln 20 Mg/5 Ml) 20 mg PO DAILY@0600 [facility] Stop: 11/08/23 05:59 Last Admin: 11/17/22 05:13 Dose: 20 mg Heparin Sodium (Porcine) (Heparin-Lock 500 Unit/5 Ml Syringe) 0 unit IV-PUSH QSHIFT [facility] Stop: 11/14/23 21:59 Last Admin: 11/18/22 06:37 Dose: 1,000 unit Linezolid (Zyvox) 600 mg in 300 mls @ 300 mls/hr IV Q12H [facility] Last Admin: 11/17/22 22:16 Dose: 300 mls/hr Meropenem (Merrem) 1 gm in 100 mls @ 33.333 mls/hr IV Q8H [facility] Last Admin: 11/18/22 01:54 Dose: 33.33 mls/hr [...] Tablet) 12.5 mg OG-TUBE BID [facility] Stop: 11/17/23 11:29 Last Admin: 11/18/22 09:57 [...] Syringe) 0 ml IV-PUSH QSHIFT [facility] Stop: 11/05/23 05:59 Last Admin: 11/18/22 06:38 [...] signed by MD Sanjay Holt> 11/18/22 1049 [facility] Work Phone: [phone] 518-971805-12-2023 Progress note Author Sanjay Holt [facility] November 18, 2022 10:45am Note Date/Time November 17, 2022 9:25a m [facility] [address] [place] [address] Infect. Disease Progress Note Signed Patient: Lori Anton MR#: [id number] : 1965 Acct:[id number] Age/Sex: 57 / M Adm Date: 3 Loc: 4C Room: [address] [place] [address] Type: ADM IN Attending Dr: Shant Villegas [...] Udc) 100 mg OG-TUBE BID [facility] Stop: 11/07/23 08:59 Last Admin: 11/17/22 08:39 Dose: 100 mg Enoxaparin Sodium (Enoxaparin 40 Mg/0.4 Ml Syringe) 40 mg SUBCUT DAILY@1000 [facility] Stop: 11/06/23 09:59 Last Admin: 11/16/22 09:26 Dose: 40 mg Fluoxetine HCl (Fluoxetine Soln 20 Mg/5 Ml) 40 mg PO HS [facility] Stop: 11/07/23 21:59 Last Admin: 11/16/22 21:14 Dose: 40 mg Fluoxetine HCl (Fluoxetine Soln 20 Mg/5 Ml) 20 mg PO DAILY@0600 [facility] Stop: 11/08/23 05:59 Last Admin: 11/17/22 05:13 Dose: 20 mg Heparin Sodium (Porcine) (Heparin-Lock 500 Unit/5 Ml Syringe) 0 unit IV-PUSH QSHIFT [facility] Stop: 11/14/23 21:59 Last Admin: 11/17/22 05:12 Dose: 1,500 unit Fentanyl (Fentanyl 1,000 Mcg/100 Ml D5w) 1,000 mcg in 100 mls @ 2.5 mls/hr IV .Q24H [facility]; Protocol Last Titration: 11/17/22 07:52 Dose: 125 mcg/hr, 12.5 mls/hr Propofol (Diprivan) 1,000 mg in 100 mls @ 12.6 mls/hr IV .Q7H57M [facility]; Protocol Stop: 11/07/23 07:59 Last Titration: 11/17/22 07:52 Dose: 30 mcg/kg/min, 18.9 mls/hr Midazolam HCl (Versed) 100 mg in 100 mls @ 1 mls/hr IV .Q24H [facility]; Protocol Stop: 05/08/23 10:59 Last Admin: 11/16/22 [...] signed by MD Sanjay Holt> 11/18/22 1045 [facility] Work Phone: [phone] Progress note Author Shant Villegas [facility] November 17, 2022 3:17pm Note Date/Time November 17, 2022 3:17p [facility] [address] [place] [address] Hospitalist Progress Note Signed Patient: Lori Anton MR#: [id number] : 1965 Acct:[id number] Age/Sex: 57 / M Adm Date: 3 Loc: Room: [address] [place] [address] Type: ADM IN Attending Dr: Shant Villegas [...] cough, and right-sided chest pain to the [facility] ED and Transferred for the evaluation and [...] <Electronically signed by Shant Villegas MD> 11/17/22 5201 [facility] Work Phone: [phone] Progress note Author Reginald Arroyo [facility] November 17, 2022 10:25am Note Date/Time November 17, 2022 8:48a m [facility] [address] [place] [address] Pulmonology Progress Note Signed Patient: Lori Anton MR#: [id number] : 1965 Acct:[id number] Age/Sex: 57 / M Adm Date: 3 Loc: Room: 3Q0948-7 Type: ADM IN Attending Dr: Shant Villegas [...] colon. Documented By: Reginald Arroyo MD 3 [id number] Signed By: <Electronically signed by MD Reginald Arroyo> 11/17/[address] [place] [address] Ctr Work Phone: [phone] Progress note Author Shant Villegas [facility] November 16, 2022 3:46pm Note Date/Time November 16, 2022 3:35p m [facility] [address] [place] [address] Hospitalist Progress Note Signed Patient: Lori Anton MR#: [id number] : 1965 Acct:[id number] Age/Sex: 57 / M Adm Date: 3 Loc: Room: 9K5663-3 Type: ADM IN Attending Dr: Shant Villegas [...] cough, and right-sided chest pain to the [facility] ED and Transferred for the evaluation and treatment of Bacterial pneumonia Bacterial pneumonia/Parainfluenza Infection Since patient remains intubated and had a spike of fever this morning. CTA chest obtained earlier today showed consolidative changes involving lower lobes and cavitary component in the right middle lobe. Patient being followed by pulmonary service and infectious disease and will defer further management to [facility] pulmonary service. Currently is off antibiotics. He [...] <Electronically signed by Shant Villegas MD> 11/16/22 1547 [facility] Work Phone: [phone] Progress note Author Reginald Arroyo [facility] November 16, 2022 11:03am Note Date/Time November 16, 2022 8:20a m [facility] [address] [place] [address] Pulmonology Progress Note Signed Patient: Lori Anton MR#: [id number] : 1965 Acct:[id number] Age/Sex: 57 / M Adm Date: 3 Loc: Room: [address] [place] [address] Type: ADM IN Attending Dr: Shant Villegas [...] <Electronically signed by MD Reginald Arroyo> 11/16/22 [facility]3 [facility] Work Phone: [phone] Progress note Author Sanajy Holt [facility] November 16, 2022 9:24am Note Date/Time November 16, 2022 9:05a [facility] [address] [place] [address] Infect. Disease Progress Note Signed Patient: Lori Anton MR#: [id number] : 1965 Acct:[id number] Age/Sex: 57 / M Adm Date: 3 Loc: Room: [address] [place] [address] Type: ADM IN Attending Dr: Shant Villegas [...] Inhaler) 6 puff VENT Q6HR [facility] Stop: 11/07/23 11:59 Last Admin: 11/16/22 05:08 Dose: 6 puff Amlodipine Besylate (Amlodipine 10 Mg Tablet) 10 mg PO DAILY@0600 [facility] Stop: 11/05/23 08:59 Last Admin: 11/08/22 07:00 Dose: 10 mg Buprenorphine HCl (Buprenorphine Hcl 2 Mg Tab.Subl) 2 mg SUBLINGUAL BID@0600,1800 [facility] Stop: 05/06/23 05:59 Last Admin: 11/07/22 06:38 Dose: 2 mg Carvedilol (Carvedilol 12.5 Mg Tablet) 12.5 mg PO BID@0600,1800 [facility] Stop: 11/06/23 20:59 Last Admin: 11/08/22 07:00 Dose: 12.5 mg Chlorhexidine Gluconate (Chlorhexidine Gluconate 0.12% 15 Ml Udc) 15 ml MUCOUS MEM BID [facility] Stop: 11/07/23 09:09 Last Admin: 11/16/22 08:46 Dose: 15 ml Docusate Sodium (Docusate Liquid 100 Mg/10 Ml Udc) 100 mg OG-TUBE BID [facility] Stop: 11/07/23 08:59 Last Admin: 11/16/22 08:46 Dose: 100 mg Enoxaparin Sodium (Enoxaparin 40 Mg/0.4 Ml Syringe) 40 mg SUBCUT DAILY@1000 [facility] Stop: 11/06/23 09:59 Last Admin: 11/15/22 10:16 Dose: 40 mg Fluoxetine HCl (Fluoxetine Soln 20 Mg/5 Ml) 40 mg PO HS [facility] Stop: 11/07/23 21:59 Last Admin: 11/15/22 22:31 Dose: 40 mg Fluoxetine HCl (Fluoxetine Soln 20 Mg/5 Ml) 20 mg PO DAILY@0600 [facility] Stop: 11/08/23 05:59 Last Admin: 11/16/22 05:39 Dose: 20 mg Heparin Sodium (Porcine) (Heparin-Lock 500 Unit/5 Ml Syringe) 0 unit IV-PUSH QSHIFT [facility] Stop: 11/14/23 21:59 Last Admin: 11/16/22 05:47 Dose: 1,000 unit Fentanyl (Fentanyl 1,000 Mcg/100 Ml D5w) 1,000 mcg in 100 mls @ 2.5 mls/hr IV .Q24H [facility]; Protocol Last Admin: 11/15/22 19:06 Dose: 200 mcg/hr, 20 mls/hr Propofol (Diprivan) 1,000 mg in 100 mls @ 12.6 mls/hr IV .Q7H57M [facility]; Protocol Stop: 11/07/23 07:59 Last Admin: 11/16/22 08:47 Dose: 20 mcg/kg/min, 12.6 mls/hr Midazolam HCl (Versed) 100 mg in 100 mls @ 1 mls/hr IV .Q24H [facility]; Protocol Stop: 05/08/23 10:59 Last Titration: 11/16/22 08:48 Dose: 5 mg/hr, 5 mls/hr Sodium Chloride (0.45% Sodium Chloride 1,000 Ml) 1,000 mls @ 150 mls/hr IV .Q6H40M [facility] Stop: 11/16/22 15:39 Lidocaine HCl (Lidocaine 1% Pf 5 Ml Inj.Zara) 10 ml INFILTRATN ONCE PRN PRN Reason: Pain Lisinopril (Lisinopril 20 Mg Tablet) 20 mg PO DAILY@0600 [facility] Stop: 11/06/23 08:59 Last Admin: 11/08/22 07:00 [...] Vial) 40 mg IV-PUSH DAILY [facility] Stop: 11/08/23 08:59 Last Admin: 11/16/22 08:46 Dose: 40 mg Polyethylene Glycol (Polyethylene Glycol 3350 17 Gm Powd.Pack) 17 gm OG-TUBE DAILY PRN PRN Reason: Constipation Stop: 11/14/23 08:52 Last Admin: 11/15/22 18:26 Dose: 17 gm Sennosides (Sennosides Syrup 8.8 Mg/5 Ml Udc) 8.8 mg OG-TUBE BID [facility] Stop: 11/16/23 08:59 Sodium Chloride (Sodium Chloride 0.9 % 10 Ml Syringe) 0 ml IV-PUSH QSHIFT [facility] Stop: 11/05/23 05:59 Last Admin: 11/16/22 05:47 Dose: 20 ml Sodium Chloride (Sodium Chloride 0.9 % 10 Ml Syringe) 10 ml IV-PUSH PRN PRN PRN Reason: Flush Stop: 11/07/23 08:37 Last Admin: 11/15/22 08:11 Dose: 10 ml Sodium Chloride (Sodium Chloride 0.9 % 10 Ml Vial.Pf) 10 ml INJECTION DAILY [facility] Stop: 11/08/23 08:59 Last Admin: 11/16/22 08:46 [...] elevated. On admission respiratory PCR panel at [facility] without targeted pathogen but parainfluenza 3 virus targeted here. Legionella urine antigen negative, Legionella antibodies negative. Urine strep antigen negative. HIV negative. At this time he is off antibiotics and has been for only a day. Documented By: Sanjay Holt MD 11/16/2258 Signed By: <Electronically signed by MD Sanjay Holt> 11/16/2224 [facility] Work Phone: [phone]) [phone] Progress note Author Shant Villegas [facility] November 15, 2022 2:30pm Note Date/Time November 15, 2022 2:30pm [facility] [address] [place] [address] Hospitalist Progress Note Signed Patient: Lori Anton MR#: [id number] : 1965 Acct:[id number] Age/Sex: 57 / M Adm Date: 3 Loc: Room: [address] [place] [address] Type: ADM IN Attending Dr: Shant Villegas [...] cough, and right-sided chest pain to the [facility] ED and Transferred for the evaluation and treatment of Bacterial pneumonia Bacterial pneumonia/Parainfluenza Infection Per chest CTA report done at [facility], there is evidence of 2.6 cm right [...] . Documented By: Shant Villegas MD 11/15/22 [id number] Signed By: <Electronically signed by Shant Villegas MD> 11/15/22 1430 [facility] Work Phone: [phone] Progress note Author Reginald Arroyo [facility] November 15, 2022 12:14pm Note Date/Time November 15, 2022 8:22am [facility] [address] [place] [address] Pulmonology Progress Note Signed Patient: Lori Anton MR#: [id number] : 1965 Acct:[id number] Age/Sex: 57 / M Adm Date: 3 Loc: Room: [address] [place] [address] Type: ADM IN Attending Dr: Shant Villegas [...] signed by MD Reginald Arroyo> 11/15/22 1214 [facility] Work Phone: [phone] Progress note Author Sanjay Holt [facility] November 15, 2022 9:37am Note Date/Time November 15, 2022 9:37am [facility] [address] [place] [address] Infect. Disease Progress Note Signed Patient: Lori Anton MR#: [id number] : 1965 Acct:[id number] Age/Sex: 57 / M Adm Date: 3 Loc: Room: [address] [place] [address] Type: ADM IN Attending Dr: Shant Villegas [...] Tablet) 10 mg PO DAILY@0600 [facility] Stop: 11/05/23 08:59 Last Admin: 11/08/22 07:00 Dose: 10 mg Budesonide (Budesonide 0.5 Mg/2 Ml Ampul.Neb) 0.5 mg INHALATION BID [facility] Stop: 11/05/23 11:39 Last Admin: 11/06/22 20:43 Dose: 0.5 mg Buprenorphine HCl (Buprenorphine Hcl 2 Mg Tab.Subl) 2 mg SUBLINGUAL BID@0600,1800 [facility] Stop: 05/06/23 05:59 Last Admin: 11/07/22 06:38 Dose: 2 mg Carvedilol (Carvedilol 12.5 Mg Tablet) 12.5 mg PO BID@0600,1800 [facility] Stop: 11/06/23 20:59 Last Admin: 11/08/22 07:00 Dose: 12.5 mg Chlorhexidine Gluconate (Chlorhexidine Gluconate 0.12% 15 Ml Udc) 15 ml MUCOUS MEM BID [facility] Stop: 11/07/23 09:09 Last Admin: 11/15/22 08:10 Dose: 15 ml Docusate Sodium (Docusate Liquid 100 Mg/10 Ml Udc) 100 mg OG-TUBE BID [facility] Stop: 11/07/23 08:59 Last Admin: 11/15/22 08:10 Dose: 100 mg Enoxaparin Sodium (Enoxaparin 40 Mg/0.4 Ml Syringe) 40 mg SUBCUT DAILY@1000 [facility] Stop: 11/06/23 09:59 Last Admin: 11/14/22 15:06 Dose: 40 mg Fluoxetine HCl (Fluoxetine Soln 20 Mg/5 Ml) 40 mg PO HS [facility] Stop: 11/07/23 21:59 Last Admin: 11/14/22 21:47 Dose: 40 mg Fluoxetine HCl (Fluoxetine Soln 20 Mg/5 Ml) 20 mg PO DAILY@0600 [facility] Stop: 11/08/23 05:59 Last Admin: 11/15/22 05:47 Dose: 20 mg Guaifenesin (Guaifenesin 600 Mg Tab.Er.12h) 1,200 mg PO BID [facility] Stop: 11/06/23 12:54 Last Admin: 11/06/22 20:51 Dose: 1,200 mg Heparin Sodium (Porcine) (Heparin-Lock 500 Unit/5 Ml Syringe) 0 unit IV-PUSH QSHIFT [facility] Stop: 11/14/23 21:59 Last Admin: 11/15/22 05:46 Dose: 1,000 unit Levofloxacin (Levaquin) 750 mg in 150 mls @ 100 mls/hr IV Q24H [facility] Last Admin: 11/14/22 21:45 Dose: 100 mls/hr Clindamycin Phosphate (Cleocin) 600 mg in 50 mls @ 100 mls/hr IV Q8H [facility] Last Admin: 11/15/22 02:46 Dose: 100 mls/hr Fentanyl (Fentanyl 1,000 Mcg/100 Ml D5w) 1,000 mcg in 100 mls @ 2.5 mls/hr IV .Q24H [facility]; Protocol Last Admin: 11/15/22 07:59 Dose: 200 mcg/hr, 20 mls/hr Propofol (Diprivan) 1,000 mg in 100 mls @ 12.6 mls/hr IV .Q7H57M [facility]; Protocol Stop: 11/07/23 07:59 Last Admin: 11/15/22 06:38 Dose: 35 mcg/kg/min, 22.05 mls/hr Midazolam HCl (Versed) 100 mg in 100 mls @ 1 mls/hr IV .Q24H [facility]; Protocol Stop: 05/08/23 10:59 Last Admin: 11/14/22 21:46 Dose: Not Given Lidocaine HCl (Lidocaine 1% Pf 5 Ml Inj.Zara) 10 ml INFILTRATN ONCE PRN PRN Reason: Pain Lisinopril (Lisinopril 20 Mg Tablet) 20 mg PO DAILY@0600 [facility] Stop: 11/06/23 08:59 Last Admin: 11/08/22 07:00 [...] Udc) 8.8 mg PO BID [facility] Stop: 11/07/23 08:59 Last Admin: 11/15/22 08:10 [...] days. On admission respiratory PCR panel at [facility] without targeted pathogen but parainfluenza 3 virus [...] <Electronically signed by MD Sanjay Holt> 11/15/2237 [facility] Work Phone: [phone] 471-401305-08-2023 [facility]-2023 Progress note Author Shant Villegas [facility] November 14, 2022 12:52pm Note Date/Time November 14, 2022 12:52p m [facility] [address] [place] [address] Hospitalist Progress Note Signed Patient: Lori Anton MR#: [id number] : 1965 Acct:[id number] Age/Sex: 57 / M Adm Date: 3 Loc: Room: [address] [place] [address] Type: ADM IN Attending Dr: Shant Villegas MD Copies to: ~ Date of Service: 11/14/2022 Subjective Subjective Narrative: On examination patient remains intubated and sedated. Currently PEEP of 10 harj882% FiO2. Plan for bronchoscopy later today by pulmonary service. He is also being followed by ID. Currently on Versed, fentanyl and propofol for sedation. No growth on blood cultures so far. With initial sputum culture growing Candidaonly. Assessment And Plan 57M with PMH of HTN, DJD, Tobacco abuse, Depression who p/w ever, cough, and right-sided chest pain to the [facility] ED and Transferred for the evaluation and treatment of Bacterial pneumonia Bacterial pneumonia/Parainfluenza Infection Per chest CTA report done at [facility], there is evidence of 2.6 cm right [...] Versed IV 05/08/23 10:59 6 mg/hr .Q24H [facility] 6 mls/hr Administration Protocol 1 MG/HR Insulin [...] signed by Shant Villegas MD> 11/14/22 1255 [facility] Work Phone: [phone] Progress note Author Reginald Arroyo [facility] November 14, 2022 12:46pm Note Date/Time November 14, 2022 8:51am [facility] [address] [place] [address] Pulmonology Progress Note Signed Patient: Lori Anton MR#: [id number] : 1965 Acct:[id number] Age/Sex: 57 / M Adm Date: 3 Loc: Room: [address] [place] [address] Type: ADM IN Attending Dr: Shant Villegas [...] cultures. Documented By: Reginald Arroyo MD 3 [id number] Signed By: <Electronically signed by MD Reginald Arroyo> 11/14/22 1246 [facility] Work Phone: [phone] Progress note Author Sanjay Holt [facility] November 14, 2022 8:59am Note Date/Time November 14, 2022 8:59am [facility] [address] [place] [address] Infect. Disease Progress Note Signed Patient: Lori Anton MR#: [id number] : 1965 Acct:[id number] Age/Sex: 57 / M Adm Date: 3 Loc: Room: [address] [place] [address] Type: ADM IN Attending Dr: Rubi Ramos [...] Inhaler) 6 puff VENT Q6HR [facility] Stop: 11/07/23 11:59 Last Admin: 11/14/22 05:19 Dose: 6 puff Albuterol/Ipratropium (Ipratropium/Albuterol 0.5-3 Mg 3 Ml Ampul.Neb) 3 ml INHALATION QID.RESP [facility] Stop: 11/05/23 07:59 Last Admin: 11/07/22 09:05 Dose: Not Given Amlodipine Besylate (Amlodipine 10 Mg Tablet) 10 mg PO DAILY@0600 [facility] Stop: 11/05/23 08:59 Last Admin: 11/08/22 07:00 Dose: 10 mg Budesonide (Budesonide 0.5 Mg/2 Ml Ampul.Neb) 0.5 mg INHALATION BID [facility] Stop: 11/05/23 11:39 Last Admin: 11/06/22 20:43 Dose: 0.5 mg Bumetanide (Bumetanide 1 Mg/4 Ml Vial) 1 mg IV-PUSH BID@0800,1600 [facility] Stop: 11/14/22 16:01 Last Admin: 11/13/22 16:15 Dose: 1 mg Buprenorphine HCl (Buprenorphine Hcl 2 Mg Tab.Subl) 2 mg SUBLINGUAL BID@06,1800 [facility] Stop: 05/06/23 05:59 Last Admin: 11/07/22 06:38 Dose: 2 mg Carvedilol (Carvedilol 12.5 Mg Tablet) 12.5 mg PO BID@06,1800 [facility] Stop: 11/06/23 20:59 Last Admin: 11/08/22 07:00 Dose: 12.5 mg Chlorhexidine Gluconate (Chlorhexidine Gluconate 0.12% 15 Ml Udc) 15 ml MUCOUS MEM BID [facility] Stop: 11/07/23 09:09 Last Admin: 11/13/22 22:31 Dose: 15 ml Docusate Sodium (Docusate Liquid 100 Mg/10 Ml Udc) 100 mg OG-TUBE BID [facility] Stop: 11/07/23 08:59 Last Admin: 11/13/22 22:31 Dose: 100 mg Enoxaparin Sodium (Enoxaparin 40 Mg/0.4 Ml Syringe) 40 mg SUBCUT DAILY@1000 [facility] Stop: 11/06/23 09:59 Last Admin: 11/13/22 09:16 Dose: 40 mg Fluoxetine HCl (Fluoxetine Soln 20 Mg/5 Ml) 40 mg PO HS [facility] Stop: 11/07/23 21:59 Last Admin: 11/13/22 22:32 Dose: 40 mg Fluoxetine HCl (Fluoxetine Soln 20 Mg/5 Ml) 20 mg PO DAILY@0600 [facility] Stop: 11/08/23 05:59 Last Admin: 11/14/22 06:31 Dose: 20 mg Guaifenesin (Guaifenesin 600 Mg Tab.Er.12h) 1,200 mg PO BID [facility] Stop: 11/06/23 12:54 Last Admin: 11/06/22 20:51 Dose: 1,200 mg Levofloxacin (Levaquin) 750 mg in 150 mls @ 100 mls/hr IV Q24H [facility] Last Admin: 11/13/22 22:31 Dose: 100 mls/hr Clindamycin Phosphate (Cleocin) 600 mg in 50 mls @ 100 mls/hr IV Q8H [facility] Last Admin: 11/14/22 01:20 Dose: 100 mls/hr Fentanyl (Fentanyl 1,000 Mcg/100 Ml D5w) 1,000 mcg in 100 mls @ 2.5 mls/hr IV .Q24H [facility]; Protocol Last Admin: 11/14/22 04:30 Dose: 200 mcg/hr, 20 mls/hr Propofol (Diprivan) 1,000 mg in 100 mls @ 12.6 mls/hr IV .Q7H57M [facility]; Protocol Stop: 11/07/23 07:59 Last Admin: 11/14/22 06:30 Dose: 50 mcg/kg/min, 31.5 mls/hr Midazolam HCl (Versed) 100 mg in 100 mls @ 1 mls/hr IV .Q24H [facility]; Protocol Stop: 05/08/23 10:59 Last Admin: 11/13/22 22:31 Dose: Not Given Insulin Aspart (Insulin Aspart 300 Units/3 Ml Insuln.Pen) 0 units SUBCUT Q6HR [facility]; Protocol Stop: 11/08/23 11:59 Last Admin: 11/14/22 06:31 Dose: Not Given Lidocaine HCl (Lidocaine 1% Pf 5 Ml Inj.Zara) 10 ml INFILTRATN ONCE PRN PRN Reason: Pain Lisinopril (Lisinopril 20 Mg Tablet) 20 mg PO DAILY@0600 [facility] Stop: 11/06/23 08:59 Last Admin: 11/08/22 07:00 [...] Udc) 8.8 mg PO BID [facility] Stop: 11/07/23 08:59 Last Admin: 11/13/22 22:31 Dose: 8.8 mg Sodium Chloride (Sodium Chloride 0.9 % 10 Ml Syringe) 0 ml IV-PUSH QSHIFT [facility] Stop: 11/05/23 05:59 Last Admin: 11/14/22 06:31 Dose: 10 ml Sodium Chloride (Sodium Chloride 0.9 % 10 Ml Syringe) 10 ml IV-PUSH PRN PRN PRN Reason: Flush Stop: 11/07/23 08:37 Sodium Chloride (Sodium Chloride 0.9 % 10 Ml Vial.Pf) 10 ml INJECTION DAILY [facility] Stop: 11/08/23 08:59 Last Admin: 11/13/22 09:16 [...] 3days. On admission respiratory PCR panel at [facility] without targeted pathogen but parainfluenza 3 virus [...] signed by MD Sanjay Holt> 11/14/22 0859 [facility] Work Phone: [phone] Progress note Author Rubi Ramos [facility] November 13, 2022 5:32pm Note Date/Time November 13, 2022 2:04pm [facility] [address] [place] [address] Hospitalist Progress Note Signed Patient: Lori Anton MR#: [id number] : 1965 Acct:[id number] Age/Sex: 57 / M Adm Date: 3 Loc: Room: [address] [place] [address] Type: ADM IN Attending Dr: Rubi Ramos MD Copies to: ~ Date of Service: 11/13/2022 Subjective Subjective Narrative: Assessment And Plan 57M with PMH of HTN, DJD, Tobacco abuse, Depression who p/w ever, cough, and right-sided chest pain to the [facility] ED and Transferred for the evaluation and treatment of Bacterial pneumonia Bacterial pneumonia/Parainfluenza Infection leukocytosis is better , no fever today Per chest CTA report done at [facility], there is evidence of 2.6 cm right [...] Vial IV-PUSH 11/14/22 16:01 [id number]@[id number],1600 [facility] Buprenorphine HCl 2 mg 11/07/22 06:00 11/07/22 [...] 11/08/23 11:59 Not Given Q6HR [facility] Protocol Lidocaine HCl 10 ml 11/09/22 13:55 [...] <Electronically signed by Rubi Ramos MD> 11/13/22 [id number] [facility] Work Phone: 1(805) 866-205205-07-2023 Progress note Author Reginald Arroyo [facility] November 13, 2022 10:56am Note Date/Time November 13, 2022 9:03am [facility] [address] [place] [address] Pulmonology Progress Note Signed Patient: Lori Anton MR#: [id number] : 1965 Acct:[id number] Age/Sex: 57 / M Adm Date: 3 Loc: Room: [address] [place] [address] Type: ADM IN Attending Dr: Rubi Ramos [...] <Electronically signed by MD Reginald Arroyo> 11/13/22 [address] [facility] Work Phone: 1(925) 237-522405-06-2023 Progress note Author [facility] Ramos [facility] [facility] November 12, 2022 6:19pm Note Date/Time November 12, 2022 4:48pm [facility] [address] [place] [address] Hospitalist Progress Note Signed Patient: Lori Anton MR#: [id number] : 1965 Acct:[id number] Age/Sex: 57 / M Adm Date: 3 Loc: Room: [address] [place] [address] Type: ADM IN Attending Dr: Rubi Ramos MD Copies to: ~ Date of Service: 11/12/2022 Subjective Subjective Narrative: Assessment And Plan 57M with PMH of HTN, DJD, Tobacco abuse, Depression who p/w ever, cough, and right-sided chest pain to the [facility] ED and Transferred for the evaluation and treatment of Bacterial pneumonia Bacterial pneumonia/Parainfluenza Infection still have leukocytosis (he is on steroids) , no fever today Per chest CTA report done at [facility], there is evidence of 2.6 cm right [...] 11/08/23 11:59 Not Given Q6HR [facility] Protocol Lidocaine HCl 10 ml 11/09/22 13:55 Lidocaine 1% Pf 5 Ml Inj.Zara INFILTRATN ONCE PRN Pain Lisinopril 20 mg 11/07/22 06:00 11/08/22 07:00 Lisinopril 20 Mg Tablet PO 11/06/23 08:59 20 mg DAILY@0600 [facility] Administration Magnesium Hydroxide 30 ml 11/07/22 07:45 [...] <Electronically signed by Rubi Ramos MD> 11/12/22 5225 [facility] Work Phone: [phone] Progress note Author Reginald Arroyo [facility] November 12, 2022 2:57pm Note Date/Time November 12, 2022 8:07am [facility] [address] [place] [address] Pulmonology Progress Note Signed Patient: Lori Anton MR#: [id number] : 1965 Acct:[id number] Age/Sex: 57 / M Adm Date: 3 Loc: Room: [address] [place] [address] Type: ADM IN Attending Dr: Rubi Ramos [...] <Electronically signed by MD Reginald Arroyo> 11/12/22 1454 [facility] Work Phone: [phone] Progress note Author Rubi Ramos [facility] November 12, 2022 1:03am Note Date/Time November 11, 2022 5:50pm [facility] [address] [place] [address] Hospitalist Progress Note Signed Patient: Lori Anton MR#: [id number] : 1965 Acct:[id number] Age/Sex: 57 / M Adm Date: 3 Loc: Room: [address] [place] [address] Type: ADM IN Attending Dr: Rubi Ramos MD Copies to: ~ Date of Service: 11/11/2022 Subjective Subjective Narrative: Assessment And Plan 57M with PMH of HTN, DJD, Tobacco abuse, Depression who p/w ever, cough, and right-sided chest pain to the [facility] ED and Transferred for the evaluation and treatment of Bacterial pneumonia Bacterial pneumonia/Parainfluenza Infection still have leukocytosis (he is on steroids) , borderline fever at night Per chest CTA report done at [facility], there is evidence of 2.6 cm right [...] (4) Parainfluenza: Plan . Documented By: Rubi Rmaos MD 11/11/22 1746 Signed By: <Electronically signed by Rubi Ramos MD> 11/12/22 010 [facility] Work Phone: [phone] Progress note Author Reginald Arroyo [facility] November 11, 2022 2:52pm Note Date/Time November 11, 2022 2:42pm [facility] [address] [place] [address] Pulmonology Progress Note Signed Patient: Lori Anton MR#: [id number] : 1965 Acct:[id number] Age/Sex: 57 / M Adm Date: 3 Loc: Room: [address] [place] [address] Type: ADM IN Attending Dr: Rubi Ramos [...] signed by MD Reginald Arroyo> 11/11/22 1452 [facility] Work Phone: [phone] 450-568405-05-2023 Progress note Author Sanjay Holt [facility] November 11, 2022 11:18am Note Date/Time November 11, 2022 11:18a m [facility] [address] [place] [address] Infect. Disease Progress Note Signed Patient: Lori Anton MR#: [id number] : 1965 Acct:[id number] Age/Sex: 57 / M Adm Date: 3 Loc: Room: [address] [place] [address] Type: ADM IN Attending Dr: Rubi Ramos [...] ml @ 100 mls/hr IV Q8H [facility] Rx#:[id number] fentaNYL 1,000 mcg-*D5W* 1,000 100 / 400 200 / 200 mcg In 100 ml @ 25 MCG/HR 2.5 mls/hr IV .Q24H [facility] Rx#: [id number] propofoL 1,000 mg In 100 ml @ 200 / 600 200 / 300 100 / 300 20 MCG/KG/MIN 12.6 mls/hr IV . Q7H57M [facility] Rx#:[id number] Tube Feeding 480 / 1440 480 / [...] Appearance Clear Urine pH 7.5 Ur Specific Wing 1.016 Urine Protein Negative Urine Glucose (UA) [...] Inhaler) 6 puff VENT Q6HR [facility] Stop: 11/07/23 11:59 Last Admin: 11/11/22 05:23 Dose: 6 puff Albuterol/Ipratropium (Ipratropium/Albuterol 0.5-3 Mg 3 Ml Ampul.Neb) 3 ml INHALATION QID.RESP [facility] Stop: 11/05/23 07:59 Last Admin: 11/07/22 09:05 Dose: Not Given Amlodipine Besylate (Amlodipine 10 Mg Tablet) 10 mg PO DAILY@0600 [facility] Stop: 11/05/23 08:59 Last Admin: 11/08/22 07:00 Dose: 10 mg Budesonide (Budesonide 0.5 Mg/2 Ml Ampul.Neb) 0.5 mg INHALATION BID [facility] Stop: 11/05/23 11:39 Last Admin: 11/06/22 20:43 Dose: 0.5 mg Buprenorphine HCl (Buprenorphine Hcl 2 Mg Tab.Subl) 2 mg SUBLINGUAL BID@0600,1800 [facility] Stop: 05/06/23 05:59 Last Admin: 11/07/22 06:38 Dose: 2 mg Carvedilol (Carvedilol 12.5 Mg Tablet) 12.5 mg PO BID@0600,1800 [facility] Stop: 11/06/23 20:59 Last Admin: 11/08/22 07:00 Dose: 12.5 mg Chlorhexidine Gluconate (Chlorhexidine Gluconate 0.12% 15 Ml Udc) 15 ml MUCOUS MEM BID [facility] Stop: 11/07/23 09:09 Last Admin: 11/11/22 08:53 Dose: 15 ml Docusate Sodium (Docusate Liquid 100 Mg/10 Ml Udc) 100 mg OG-TUBE BID [facility] Stop: 11/07/23 08:59 Last Admin: 11/11/22 08:53 Dose: 100 mg Enoxaparin Sodium (Enoxaparin 40 Mg/0.4 Ml Syringe) 40 mg SUBCUT DAILY@1000 [facility] Stop: 11/06/23 09:59 Last Admin: 11/11/22 11:08 Dose: 40 mg Fluoxetine HCl (Fluoxetine Soln 20 Mg/5 Ml) 40 mg PO HS [facility] Stop: 11/07/23 21:59 Last Admin: 11/10/22 21:53 Dose: 40 mg Fluoxetine HCl (Fluoxetine Soln 20 Mg/5 Ml) 20 mg PO DAILY@0600 [facility] Stop: 11/08/23 05:59 Last Admin: 11/11/22 06:16 Dose: 20 mg Guaifenesin (Guaifenesin 600 Mg Tab.Er.12h) 1,200 mg PO BID [facility] Stop: 11/06/23 12:54 Last Admin: 11/06/22 20:51 Dose: 1,200 mg Levofloxacin (Levaquin) 750 mg in 150 mls @ 100 mls/hr IV Q24H [facility] Last Admin: 11/10/22 21:53 Dose: 100 mls/hr Clindamycin Phosphate (Cleocin) 600 mg in 50 mls @ 100 mls/hr IV Q8H [facility] Last Admin: 11/11/22 11:08 Dose: 100 mls/hr Fentanyl (Fentanyl 1,000 Mcg/100 Ml D5w) 1,000 mcg in 100 mls @ 2.5 mls/hr IV .Q24H [facility]; Protocol Last Admin: 11/11/22 07:45 Dose: 200 mcg/hr, 20 mls/hr Propofol (Diprivan) 1,000 mg in 100 mls @ 12.6 mls/hr IV .Q7H57M [facility]; Protocol Stop: 11/07/23 07:59 Last Admin: 11/11/22 08:52 Dose: 50 mcg/kg/min, 31.5 mls/hr Sodium Chloride (0.9% Sodium Chloride 1,000 Ml) 1,000 mls @ 75 mls/hr IV .[id number] [facility] Stop: 11/07/23 09:59 Last Admin: 11/10/22 23:51 Dose: Not Given Midazolam HCl (Versed) 100 mg in 100 mls @ 1 mls/hr IV .Q24H [facility]; Protocol Stop: 05/08/23 10:59 Last Admin: 11/11/22 11:08 Dose: 6 mg/hr, 6 mls/hr Insulin Aspart (Insulin Aspart 300 Units/3 Ml Insuln.Pen) 0 units SUBCUT Q6HR [facility]; Protocol Stop: 11/08/23 11:59 Last Admin: 11/11/22 [...] Tablet) 20 mg PO DAILY@0600 [facility] Stop: 11/06/23 08:59 Last Admin: 11/08/22 07:00 Dose: 20 mg Magnesium Hydroxide (Magnesium Hydroxide Susp 30 Ml Udc) 30 ml PO DAILY PRN PRN Reason: Constipation Stop: 11/07/23 07:44 Methylprednisolone Sodium Succinate (Methylprednisolone Sod Succ/Pf 40 Mg/Ml (1ml) Vial) 40 mg IV-PUSH DAILY [facility] Stop: 11/10/23 08:59 Last Admin: 11/11/22 08:53 [...] Vial) 40 mg IV-PUSH DAILY [facility] Stop: 11/08/23 08:59 Last Admin: 11/11/22 08:53 Dose: 40 mg Potassium Chloride (Potassium Chloride Er 20 Meq Tab.Er.Prt) 40 meq PO DAILY PRN PRN Reason: Hypokalemia Stop: 11/05/23 06:40 Last Admin: 11/05/22 08:43 Dose: 40 meq Sennosides (Sennosides Syrup 8.8 Mg/5 Ml Udc) 8.8 mg PO BID [facility] Stop: 11/07/23 08:59 Last Admin: 11/11/22 08:53 Dose: 8.8 mg Sodium Chloride (Sodium Chloride 0.9 % 10 Ml Syringe) 0 ml IV-PUSH QSHIFT [facility] Stop: 11/05/23 05:59 Last Admin: 11/11/22 06:17 [...] cultures remain negative. Respiratory PCR panel at [facility] without targeted pathogen but parainfluenza 3 virus [...] stop. Documented By: Sanjay Holt MD 11/11/22 4527 Signed By: <Electronically signed by MD Sanjay Holt> 11/11/22 7553 [facility] Work Phone: [phone]) [phone] Progress note Author Rubi Ramos [facility] November 11, 2022 12:31am Note Date/Time November 10, 2022 6:42pm [facility] [address] [place], [place] [id number] Hospitalist Progress Note Signed Patient: Lori Anton MR#: [id number] : 1965 Acct:[id number] Age/Sex: 57 / M Adm Date: 3 Loc: Room: [address] [place] [address] Type: ADM IN Attending Dr: Rubi Ramos MD Copies to: ~ Date of Service: 11/10/2022 Subjective Subjective Narrative: Assessment And Plan 57M with PMH of HTN, DJD, Tobacco abuse, Depression who p/w ever, cough, and right-sided chest pain to the [facility] ED and Transferred for the evaluation and treatment of Bacterial pneumonia Bacterial pneumonia/Parainfluenza Infection Mild fever spike this morning UA was not suggestive for UTI, blood Cx obtained, leukocytosis Per chest CTA report done at [facility], there is evidence of 2.6 cm right [...] 1,000 Ml IV 11/07/23 09:59 75 mls/hr .[id number] [facility] Administration Midazolam HCl 100 mg in 100 mls @ 1 mls/hr 11/09/22 11:00 11/10/22 06:34 Versed IV 05/08/23 10:59 6 mg/hr .Q24H [facility] 6 mls/hr Titration Protocol 1 MG/HR Insulin Aspart 0 units 11/08/22 12:00 11/10/22 18:29 Insulin Aspart 300 Units/3 Ml Insuln.Pen SUBCUT 11/08/23 11:59 Not Given Q6HR [facility] Protocol Ketorolac Tromethamine 30 mg 11/06/22 12:52 [...] signed by Rubi Ramos MD> 11/11/22 0031 [facility] Work Phone: [phone] Progress note Author Ismael Huitron [facility] November 10, 2022 2:27pm Note Date/Time November 10, 2022 2:27pm [facility] [address] [place] [address] Pulmonology Progress Note Signed Patient: Lori Anton MR#: [id number] : 1965 Acct:[id number] Age/Sex: 57 / M Adm Date: 3 Loc: Room: [address] [place] [address] Type: ADM IN Attending Dr: Rubi Ramos [...] pneumothorax: Plan: Patient required placement of 32 Beninese chest tube to keep up with his [...] continue suctioning to -20 from both 32 Beninese chest tubes * CC time 35 minutes Documented By: Ismael Huitron MD 11/10/221421 Signed By: <Electronically signed by Ismael Huitron MD> 11/10/22 142 [facility] Work Phone: [phone] Progress note Author Sanjay Holt [facility] November 10, 2022 9:42am Note Date/Time November 10, 2022 9:38am [facility] [address] [place] [address] Infect. Disease Progress Note Signed Patient: Lori Anton MR#: [id number] : 1965 Acct:[id number] Age/Sex: 57 / M Adm Date: 3 Loc: Room: [address] [place] [address] Type: ADM IN Attending Dr: Rubi Ramos [...] Inhaler) 6 puff VENT Q6HR [facility] Stop: 11/07/23 11:59 Last Admin: 11/10/22 06:30 Dose: 6 puff Albuterol/Ipratropium (Ipratropium/Albuterol 0.5-3 Mg 3 Ml Ampul.Neb) 3 ml INHALATION QID.RESP [facility] Stop: 11/05/23 07:59 Last Admin: 11/07/22 09:05 Dose: Not Given Amlodipine Besylate (Amlodipine 10 Mg Tablet) 10 mg PO DAILY@0600 [facility] Stop: 11/05/23 08:59 Last Admin: 11/08/22 07:00 Dose: 10 mg Budesonide (Budesonide 0.5 Mg/2 Ml Ampul.Neb) 0.5 mg INHALATION BID [facility] Stop: 11/05/23 11:39 Last Admin: 11/06/22 20:43 Dose: 0.5 mg Buprenorphine HCl (Buprenorphine Hcl 2 Mg Tab.Subl) 2 mg SUBLINGUAL BID@0600,1800 [facility] Stop: 05/06/23 05:59 Last Admin: 11/07/22 06:38 Dose: 2 mg Carvedilol (Carvedilol 12.5 Mg Tablet) 12.5 mg PO BID@0600,1800 [facility] Stop: 11/06/23 20:59 Last Admin: 11/08/22 07:00 Dose: 12.5 mg Chlorhexidine Gluconate (Chlorhexidine Gluconate 0.12% 15 Ml Udc) 15 ml MUCOUS MEM BID [facility] Stop: 11/07/23 09:09 Last Admin: 11/10/22 08:57 Dose: 15 ml Docusate Sodium (Docusate Liquid 100 Mg/10 Ml Udc) 100 mg OG-TUBE BID [facility] Stop: 11/07/23 08:59 Last Admin: 11/10/22 08:57 Dose: 100 mg Enoxaparin Sodium (Enoxaparin 40 Mg/0.4 Ml Syringe) 40 mg SUBCUT DAILY@1000 [facility] Stop: 11/06/23 09:59 Last Admin: 11/10/22 09:00 Dose: 40 mg Fluoxetine HCl (Fluoxetine Soln 20 Mg/5 Ml) 40 mg PO HS [facility] Stop: 11/07/23 21:59 Last Admin: 11/09/22 21:43 Dose: 40 mg Fluoxetine HCl (Fluoxetine Soln 20 Mg/5 Ml) 20 mg PO DAILY@0600 [facility] Stop: 11/08/23 05:59 Last Admin: 11/10/22 05:48 Dose: 20 mg Guaifenesin (Guaifenesin 600 Mg Tab.Er.12h) 1,200 mg PO BID [facility] Stop: 11/06/23 12:54 Last Admin: 11/06/22 20:51 Dose: 1,200 mg Levofloxacin (Levaquin) 750 mg in 150 mls @ 100 mls/hr IV Q24H [facility] Last Admin: 11/09/22 21:22 Dose: 100 mls/hr Clindamycin Phosphate (Cleocin) 600 mg in 50 mls @ 100 mls/hr IV Q8H [facility] Last Admin: 11/10/22 09:00 Dose: 100 mls/hr Fentanyl (Fentanyl 1,000 Mcg/100 Ml D5w) 1,000 mcg in 100 mls @ 2.5 mls/hr IV .Q24H [facility]; Protocol Last Admin: 11/10/22 08:57 Dose: 200 mcg/hr, 20 mls/hr Propofol (Diprivan) 1,000 mg in 100 mls @ 12.6 mls/hr IV .Q7H57M [facility]; Protocol Stop: 11/07/23 07:59 Last Admin: 11/10/22 07:51 Dose: 50 mcg/kg/min, 31.5 mls/hr Sodium Chloride (0.9% Sodium Chloride 1,000 Ml) 1,000 mls @ 75 mls/hr IV .[id number] [facility] Stop: 11/07/23 09:59 Last Admin: 11/10/22 06:29 Dose: Not Given Midazolam HCl (Versed) 100 mg in 100 mls @ 1 mls/hr IV .Q24H [facility]; Protocol Stop: 05/08/23 10:59 Last Titration: 11/10/22 06:34 Dose: 6 mg/hr, 6 mls/hr Insulin Aspart (Insulin Aspart 300 Units/3 Ml Insuln.Pen) 0 units SUBCUT Q6HR [facility]; Protocol Stop: 11/08/23 11:59 Last Admin: 11/10/22 [...] Tablet) 20 mg PO DAILY@0600 [facility] Stop: 11/06/23 08:59 Last Admin: 11/08/22 07:00 Dose: 20 mg Magnesium Hydroxide (Magnesium Hydroxide Susp 30 Ml Udc) 30 ml PO DAILY PRN PRN Reason: Constipation Stop: 11/07/23 07:44 Methylprednisolone Sodium Succinate (Methylprednisolone Sod Succ/Pf 40 Mg/Ml (1ml) Vial) 40 mg IV-PUSH DAILY [facility] Stop: 11/10/23 08:59 Last Admin: 11/10/22 08:56 [...] Vial) 40 mg IV-PUSH DAILY [facility] Stop: 11/08/23 08:59 Last Admin: 11/10/22 08:57 [...] Vial.Pf) 10 ml INJECTION DAILY [facility] Stop: 11/08/23 08:59 Last Admin: 11/10/22 08:58 [...] cultures remain negative. Respiratory PCR panel at [facility] without targeted pathogen but parainfluenza 3 virus [...] signed by MD Sanjay Holt> 11/10/22 0942 [facility] Work Phone: [phone] Progress note Author Rubi Ramos [facility] November 10, 2022 1:16am Note Date/Time November 09, 2022 7:10pm [facility] [address] [place] [address] Hospitalist Progress Note Signed Patient: Lori Anton MR#: [id number] : 1965 Acct:[id number] Age/Sex: 57 / M Adm Date: 3 Loc: Room: [address] [place] [address] Type: ADM IN Attending Dr: Rubi Ramos MD Copies to: ~ Date of Service: 11/09/2022 Subjective Subjective Narrative: Assessment And Plan 57M with PMH of HTN, DJD, Tobacco abuse, Depression who p/w ever, cough, and right-sided chest pain to the [facility] ED and Transferred for the evaluation and treatment of Bacterial pneumonia/Parainfluenza Infection Afebrile, leukocytosis is resolving , Per chest CTA report done at [facility], there is evidence of 2.6 cm right [...] 1,000 Ml IV 11/07/23 09:59 Not Given .[id number] [facility] Midazolam HCl 100 mg in 100 mls @ 1 mls/hr 11/09/22 11:00 11/09/22 17:35 Versed IV 05/08/23 10:59 5 mg/hr .Q24H [facility] 5 mls/hr Titration Protocol 1 MG/HR Insulin Aspart 0 units 11/08/22 12:00 11/09/22 18:31 Insulin Aspart 300 Units/3 Ml Insuln.Pen SUBCUT 11/08/23 11:59 Not Given Q6HR [facility] Protocol Ketorolac Tromethamine 30 mg 11/06/22 12:52 11/07/22 04:21 Ketorolac Tromethamine 30 Mg/Ml Vial IV-PUSH 11/11/22 12:51 30 mg Q6H PRN Administration Pain Scale 7 - 10 Lidocaine HCl 10 ml 11/09/22 13:55 Lidocaine 1% Pf 5 Ml Inj.Zara INFILTRATN ONCE PRN Pain Lisinopril 20 mg 11/07/22 06:00 11/08/22 07:00 Lisinopril 20 Mg Tablet PO 11/06/23 08:59 20 mg DAILY@0600 [facility] Administration Magnesium Hydroxide 30 ml 11/07/22 07:45 Magnesium Hydroxide Susp 30 Ml Udc PO 11/07/23 07:44 DAILY PRN Constipation Methylprednisolone Sodium Succinate 40 mg 11/10/22 09:00 Methylprednisolone Sod Succ/Pf 40 Mg/Ml (1ml) Vial IV-PUSH 11/10/23 08:59 DAILY [facility] Metoprolol Tartrate 5 mg 11/07/22 05:11 11/07/22 [...] signed by Rubi Ramos MD> 11/10/22 0116 [facility] Work Phone: [phone] Progress note Author Ismael Huitron [facility] November 09, 2022 3:14pm Note Date/Time November 09, 2022 1:23pm [facility] [address] [place] [address] Pulmonology Progress Note Signed Patient: Lori Anton MR#: [id number] : 1965 Acct:[id number] Age/Sex: 57 / M Adm Date: 3 Loc: Room: [address] [place] [address] Type: ADM IN Attending Dr: Rubi Ramos MD Copies to: ~ Date of Service: 11/09/2022 Subjective Subjective Narrative: Patient continued to improve after placement of second chest tube, his air leak has diminished markedly since, chest x-ray continued show complete reexpansion of the lung, I will remove his small pneumothorax catheter from the right midclavicular area and maintain the large [address] chest tube in place with suctioning at [...] pneumothorax: Plan: Patient required placement of 32 [place] chest tube to keep up with his [...] <Electronically signed by Ismael Huitron MD> 11/09/22 1456 [facility] Work Phone: [phone] [facility] Progress note Author Sanjay Holt [facility] November 09, 2022 9:12am Note Date/Time November 09, 2022 9:08am [facility] [address] [place] [address] Infect. Disease Progress Note Signed Patient: Lori Anton MR#: [id number] : 1965 Acct:[id number] Age/Sex: 57 / M Adm Date: 3 Loc: Room: [address] [place] [address] Type: ADM IN Attending Dr: Rubi Ramos [...] Inhaler) 6 puff VENT Q6HR [facility] Stop: 11/07/23 11:59 Last Admin: 11/09/22 06:31 Dose: 6 puff Albuterol/Ipratropium (Ipratropium/Albuterol 0.5-3 Mg 3 Ml Ampul.Neb) 3 ml INHALATION QID.RESP [facility] Stop: 11/05/23 07:59 Last Admin: 11/07/22 09:05 Dose: Not Given Amlodipine Besylate (Amlodipine 10 Mg Tablet) 10 mg PO DAILY@0600 [facility] Stop: 11/05/23 08:59 Last Admin: 11/08/22 07:00 Dose: 10 mg Budesonide (Budesonide 0.5 Mg/2 Ml Ampul.Neb) 0.5 mg INHALATION BID [facility] Stop: 11/05/23 11:39 Last Admin: 11/06/22 20:43 Dose: 0.5 mg Buprenorphine HCl (Buprenorphine Hcl 2 Mg Tab.Subl) 2 mg SUBLINGUAL BID@0600,1800 [facility] Stop: 05/06/23 05:59 Last Admin: 11/07/22 06:38 Dose: 2 mg Carvedilol (Carvedilol 12.5 Mg Tablet) 12.5 mg PO BID@0600,1800 [facility] Stop: 11/06/23 20:59 Last Admin: 11/08/22 07:00 Dose: 12.5 mg Chlorhexidine Gluconate (Chlorhexidine Gluconate 0.12% 15 Ml Udc) 15 ml MUCOUS MEM BID [facility] Stop: 11/07/23 09:09 Last Admin: 11/09/22 08:28 Dose: 15 ml Docusate Sodium (Docusate Liquid 100 Mg/10 Ml Udc) 100 mg OG-TUBE BID [facility] Stop: 11/07/23 08:59 Last Admin: 11/09/22 08:28 Dose: 100 mg Enoxaparin Sodium (Enoxaparin 40 Mg/0.4 Ml Syringe) 40 mg SUBCUT DAILY@1000 [facility] Stop: 11/06/23 09:59 Last Admin: 11/08/22 10:14 Dose: 40 mg Fluoxetine HCl (Fluoxetine Soln 20 Mg/5 Ml) 40 mg PO HS [facility] Stop: 11/07/23 21:59 Last Admin: 11/08/22 21:00 Dose: 40 mg Fluoxetine HCl (Fluoxetine Soln 20 Mg/5 Ml) 20 mg PO DAILY@0600 [facility] Stop: 11/08/23 05:59 Last Admin: 11/09/22 05:06 Dose: 20 mg Guaifenesin (Guaifenesin 600 Mg Tab.Er.12h) 1,200 mg PO BID [facility] Stop: 11/06/23 12:54 Last Admin: 11/06/22 20:51 Dose: 1,200 mg Levofloxacin (Levaquin) 750 mg in 150 mls @ 100 mls/hr IV Q24H [facility] Last Infusion: 11/08/22 23:10 Dose: Infused Clindamycin Phosphate (Cleocin) 600 mg in 50 mls @ 100 mls/hr IV Q8H [facility] Last Infusion: 11/09/22 02:31 Dose: Infused Fentanyl (Fentanyl 1,000 Mcg/100 Ml D5w) 1,000 mcg in 100 mls @ 2.5 mls/hr IV .Q24H [facility]; Protocol Last Admin: 11/08/22 21:01 Dose: 100 mcg/hr, 10 mls/hr Propofol (Diprivan) 1,000 mg in 100 mls @ 12.6 mls/hr IV .Q7H57M [facility]; Protocol Stop: 11/07/23 07:59 Last Titration: 11/09/22 05:39 Dose: 40 mcg/kg/min, 25.2 mls/hr Sodium Chloride (0.9% Sodium Chloride 1,000 Ml) 1,000 mls @ 75 mls/hr IV .[id number] [facility] Stop: 11/07/23 09:59 Last Admin: 11/09/22 06:07 Dose: 75 mls/hr Cisatracurium Besylate 200 mg/ (Dextrose) 200 mls @ 12.6 mls/hr IV .[id number] [facility]; Protocol Stop: 11/07/23 10:29 Last Titration: 11/09/22 00:34 Dose: 3 mcg/kg/min, 18.9 mls/hr Insulin Aspart (Insulin Aspart 300 Units/3 Ml Insuln.Pen) 0 units SUBCUT Q6HR [facility]; Protocol Stop: 11/08/23 11:59 Last Admin: 11/09/22 05:26 Dose: Not Given Ketorolac Tromethamine (Ketorolac Tromethamine 30 Mg/Ml Vial) 30 mg IV-PUSH Q6HPRN PRN Reason: Pain Scale 7 - 10 Stop: 11/11/22 12:51 Last Admin: 11/07/22 04:21 Dose: 30 mg Lisinopril (Lisinopril 20 Mg Tablet) 20 mg PO DAILY@0600 [facility] Stop: 11/06/23 08:59 Last Admin: 11/08/22 07:00 Dose: 20 mg Magnesium Hydroxide (Magnesium Hydroxide Susp 30 Ml Udc) 30 ml PO DAILY PRN PRN Reason: Constipation Stop: 11/07/23 07:44 Methylprednisolone Sodium Succinate (Methylprednisolone Sod Succ/Pf 40 Mg/Ml (1ml) Vial) 40 mg IV-PUSH Q8HR [facility] Stop: 11/05/23 13:59 Last Admin: 11/09/22 05:06 [...] Vial) 40 mg IV-PUSH DAILY [facility] Stop: 11/08/23 08:59 Last Admin: 11/09/22 08:28 Dose: 40 mg Potassium Chloride (Potassium Chloride Er 20 Meq Tab.Er.Prt) 40 meq PO DAILY PRN PRN Reason: Hypokalemia Stop: 11/05/23 06:40 Last Admin: 11/05/22 08:43 Dose: 40 meq Sennosides (Sennosides Syrup 8.8 Mg/5 Ml Udc) 8.8 mg PO BID [facility] Stop: 11/07/23 08:59 Last Admin: 11/09/22 08:28 Dose: 8.8 mg Sodium Chloride (Sodium Chloride 0.9 % 10 Ml Syringe) 0 ml IV-PUSH QSHIFT [facility] Stop: 11/05/23 05:59 Last Admin: 11/09/22 05:07 [...] cultures remain negative. Respiratory PCR panel at [facility] without targeted pathogen but parainfluenza 3 virus targeted here. Legionella urine antigen negative, Legionella antibodies negative. Urinestrep antigen negative. HIV negative. Continues on Levaquin and Flagyl. Day 5of antibiotics Documented By: Sanjay Holt MD 11/09/22905 Signed By: <Electronically signed by MD Sanjay Holt> 11/09/22911 [facility] Work Phone: [phone] 193-750105-03-2023 Progress note Author Rubi Ramos [facility] November 09, 2022 1:09am Note Date/Time November 08, 2022 7:20pm [facility] [address] [place] [address] Hospitalist Progress Note Signed Patient: Lori Anton MR#: [id number] : 1965 Acct:[id number] Age/Sex: 57 / M Adm Date: 3 Loc: Room: [address] [place] [address] Type: ADM IN Attending Dr: Rubi Ramos [...] 1,000 Ml IV 11/07/23 09:59 Not Given .[id number] [facility] Cisatracurium Besylate 200 mg/ 200 mls @ 12.6 mls/hr 11/07/22 10:30 11/08/22 17:38 Dextrose IV 11/07/23 10:29 3 mcg/kg/min .[id number] [facility] 18.9 mls/hr Titration Protocol 2 MCG/KG/MIN Norepinephrine Bitartrate 8 mg in 250 mls @ 3.75 mls/hr 11/07/22 17:15 11/08/22 17:39 Levophed IV 11/07/23 17:14 Not Given .Q24H [facility] Protocol 2 MCG/MIN Insulin Aspart 0 units 11/08/22 12:00 11/08/22 17:45 Insulin Aspart 300 Units/3 Ml Insuln.Pen SUBCUT 11/08/23 11:59 Not Given Q6HR [facility] Protocol Ketorolac Tromethamine 30 mg 11/06/22 12:52 [...] signed by Rubi Ramos MD> 11/09/22 0109 [facility] Work Phone: 1([phone] 631-586505-02-2023 Progress note Author Ismael Huitron [facility] November 08, 2022 3:23pm Note Date/Time November 08, 2022 3:23pm [facility] [address] [place] [address] Pulmonology Progress Note Signed Patient: Lori Anton MR#: [id number] : 1965 Acct:[id number] Age/Sex: 57 / M Adm Date: 3 Loc: Room: [address] [place] [address] Type: ADM IN Attending Dr: Rubi Ramos MD Copies to: ~ Date of Service: 11/08/2022 Subjective Subjective Narrative: Patient has stabilized from the respiratory standpoint overnight but had worsening air leak from his chest tube now continuous air leak is noted this morning, chest x-ray showed worsening right pneumothorax, immediately after seeing that I placed a 32 Beninese chest tube in addition to the small pneumothorax catheter in place, he had continuous air leak from both, and chest x-ray showed complete reexpansion of the lung after the second chest tube placement. This was accompanied by improving oxygenation he is down to 40% BfR4ico. I started weaning PEEP down as well [...] pneumothorax: Plan: Patient required placement of 32 Beninese chest tube to keep up with his [...] <Electronically signed by Ismael Huitron MD> 11/08/22 152 [facility] Work Phone: 1(244) 616-727005-02-2023 [facility] Progress note Author Sanjay Holt [facility] November 08, 2022 8:52am Note Date/Time November 08, 2022 8:47am [facility] [address] [place] [address] Infect. Disease Progress Note Signed Patient: Lori Anton MR#: [id number] : 1965 Acct:[id number] Age/Sex: 57 / M Adm Date: 3 Loc: Room: [address] [place] [address] Type: ADM IN Attending Dr: Rubi Ramos [...] ml @ 2 MCG/KG/MIN 12.6 mls/hr IV .[id number] [facility] Rx#:[id number] Clindamycin 600 mg/50 ml-*D5w* 50 / 150 50 / 50 600 mg In 50 ml @ 100 mls/hr IV Q8H [facility] Rx#:[id number] Sodium Chloride 0.9% 1,000 ml 1 1000 / 1000 ,000 ml @ 75 mls/hr IV .[id number] [facility] Rx#:[id number] fentaNYL 1,000 mcg-*D5W* 1,000 100 / 200 mcg In 100 ml @ 25 MCG/HR 2.5 mls/hr IV .Q24H [facility] Rx#: [id number] levoFLOXacin 750MG-*D5W* 750 mg 150 / 150 In 150 ml @ 100 mls/hr IV Q24H [facility] Rx#:[id number] propofoL 1,000 mg In 100 ml @ 200 / 400 100 / 100 20 MCG/KG/MIN 12.6 mls/hr IV . Q7H57M [facility] Rx#:[id number] Tube Feeding 0 / 0 Tube Irrigant [...] Inhaler) 6 puff VENT Q6HR [facility] Stop: 11/07/23 11:59 Last Admin: 11/08/22 05:35 Dose: 6 puff Albuterol/Ipratropium (Ipratropium/Albuterol 0.5-3 Mg 3 Ml Ampul.Neb) 3 ml INHALATION QID.RESP [facility] Stop: 11/05/23 07:59 Last Admin: 11/07/22 09:05 Dose: Not Given Amlodipine Besylate (Amlodipine 10 Mg Tablet) 10 mg PO DAILY@0600 [facility] Stop: 11/05/23 08:59 Last Admin: 11/08/22 07:00 Dose: 10 mg Budesonide (Budesonide 0.5 Mg/2 Ml Ampul.Neb) 0.5 mg INHALATION BID [facility] Stop: 11/05/23 11:39 Last Admin: 11/06/22 20:43 Dose: 0.5 mg Buprenorphine HCl (Buprenorphine Hcl 2 Mg Tab.Subl) 2 mg SUBLINGUAL BID@0600,1800 [facility] Stop: 05/06/23 05:59 Last Admin: 11/07/22 06:38 Dose: 2 mg Carvedilol (Carvedilol 12.5 Mg Tablet) 12.5 mg PO BID@0600,1800 [facility] Stop: 11/06/23 20:59 Last Admin: 11/08/22 07:00 Dose: 12.5 mg Chlorhexidine Gluconate (Chlorhexidine Gluconate 0.12% 15 Ml Udc) 15 ml MUCOUS MEM BID [facility] Stop: 11/07/23 09:09 Last Admin: 11/07/22 21:56 Dose: 15 ml Docusate Sodium (Docusate Liquid 100 Mg/10 Ml Udc) 100 mg OG-TUBE BID [facility] Stop: 11/07/23 08:59 Last Admin: 11/07/22 21:56 Dose: 100 mg Enoxaparin Sodium (Enoxaparin 40 Mg/0.4 Ml Syringe) 40 mg SUBCUT DAILY@1000 [facility] Stop: 11/06/23 09:59 Last Admin: 11/07/22 10:37 Dose: 40 mg Fluoxetine HCl (Fluoxetine Soln 20 Mg/5 Ml) 40 mg PO HS [facility] Stop: 11/07/23 21:59 Last Admin: 11/07/22 21:57 Dose: 40 mg Fluoxetine HCl (Fluoxetine Soln 20 Mg/5 Ml) 20 mg PO DAILY@0600 [facility] Stop: 11/08/23 05:59 Last Admin: 11/08/22 07:00 Dose: 20 mg Guaifenesin (Guaifenesin 600 Mg Tab.Er.12h) 1,200 mg PO BID [facility] Stop: 11/06/23 12:54 Last Admin: 11/06/22 20:51 Dose: 1,200 mg Levofloxacin (Levaquin) 750 mg in 150 mls @ 100 mls/hr IV Q24H [facility] Last Infusion: 11/07/22 23:33 Dose: Infused Clindamycin Phosphate (Cleocin) 600 mg in 50 mls @ 100 mls/hr IV Q8H [facility] Last Infusion: 11/08/22 06:00 Dose: Infused Fentanyl (Fentanyl 1,000 Mcg/100 Ml D5w) 1,000 mcg in 100 mls @ 2.5 mls/hr IV .Q24H [facility]; Protocol Last Admin: 11/08/22 02:00 Dose: 100 mcg/hr, 10 mls/hr Propofol (Diprivan) 1,000 mg in 100 mls @ 12.6 mls/hr IV .Q7H57M [facility]; Protocol Stop: 11/07/23 07:59 Last Admin: 11/08/22 04:01 Dose: 35 mcg/kg/min, 22.05 mls/hr Sodium Chloride (0.9% Sodium Chloride 1,000 Ml) 1,000 mls @ 75 mls/hr IV .[id number] [facility] Stop: 11/07/23 09:59 Last Admin: 11/07/22 23:32 Dose: 75 mls/hr Cisatracurium Besylate 200 mg/ (Dextrose) 200 mls @ 12.6 mls/hr IV .[id number] [facility]; Protocol Stop: 11/07/23 10:29 Last Admin: 11/08/22 06:29 Dose: 2 mcg/kg/min, 12.6 mls/hr Norepinephrine Bitartrate (Levophed) 8 mg in 250 mls @ 3.75 mls/hr IV .Q24H [facility]; Protocol Stop: 11/07/23 17:14 Last Admin: 11/08/22 07:54 Dose: Not Given Ketorolac Tromethamine (Ketorolac Tromethamine 30 Mg/Ml Vial) 30 mg IV-PUSH Q6HPRN PRN Reason: Pain Scale 7 - 10 Stop: 11/11/22 12:51 Last Admin: 11/07/22 04:21 Dose: 30 mg Lisinopril (Lisinopril 20 Mg Tablet) 20 mg PO DAILY@0600 [facility] Stop: 11/06/23 08:59 Last Admin: 11/08/22 07:00 Dose: 20 mg Magnesium Hydroxide (Magnesium Hydroxide Susp 30 Ml Udc) 30 ml PO DAILY PRN PRN Reason: Constipation Stop: 11/07/23 07:44 Methylprednisolone Sodium Succinate (Methylprednisolone Sod Succ/Pf 40 Mg/Ml (1ml) Vial) 40 mg IV-PUSH Q8HR [facility] Stop: 11/05/23 13:59 Last Admin: 11/08/22 07:00 [...] Vial) 40 mg IV-PUSH DAILY [facility] Stop: 11/08/23 08:59 Potassium Chloride (Potassium Chloride Er 20 Meq Tab.Er.Prt) 40 meq PO DAILY PRN PRN Reason: Hypokalemia Stop: 11/05/23 06:40 Last Admin: 11/05/22 08:43 Dose: 40 meq Sennosides (Sennosides Syrup 8.8 Mg/5 Ml Udc) 8.8 mg PO BID [facility] Stop: 11/07/23 08:59 Last Admin: 11/07/22 21:56 Dose: 8.8 mg Sodium Chloride (Sodium Chloride 0.9 % 10 Ml Syringe) 0 ml IV-PUSH QSHIFT [facility] Stop: 11/05/23 05:59 Last Admin: 11/08/22 07:00 Dose: 40 ml Sodium Chloride (Sodium Chloride 0.9 % 10 Ml Syringe) 10 ml IV-PUSH PRN PRN PRN Reason: Flush Stop: 11/07/23 08:37 Sodium Chloride (Sodium Chloride 0.9 % 10 Ml Vial.Pf) 10 ml INJECTION DAILY [facility] Stop: 11/08/23 08:59 Tizanidine HCl (Tizanidine 4 [...] signed by MD Sanjay Holt> 11/08/22 0852 [facility] Work Phone: 1([phone] 329-617905-02-2023 Progress note Author Rubi Ramos [facility] November 08, 2022 1:26am Note Date/Time November 07, 2022 4:20pm [facility] [address] [place] [address] Hospitalist Progress Note Signed Patient: Lori Anton MR#: [id number] : 1965 Acct:[id number] Age/Sex: 57 / M Adm Date: 3 Loc: Room: [address] [place] [address] Type: ADM IN Attending Dr: Rubi Ramos [...] 05/06/23 05:59 2 mg BID@0600,1800 [facility] Administration Carvedilol 12.5 mg 11/06/22 21:00 11/07/22 [...] 11/07/23 08:59 Not Given BID [facility] Enoxaparin Sodium 40 mg 11/06/22 10:00 11/07/22 10:37 Enoxaparin 40 Mg/0.4 Ml Syringe SUBCUT 11/06/23 09:59 40 mg DAILY@1000 [facility] Administration Fluoxetine HCl 40 mg 11/07/22 22:00 Fluoxetine Soln 20 Mg/5 Ml PO 11/07/23 21:59 HS [facility] Fluoxetine HCl 20 mg 11/08/22 06:00 Fluoxetine Soln 20 Mg/5 Ml PO 11/08/23 05:59 DAILY@0600 [facility] Guaifenesin 1,200 mg 11/06/22 12:55 11/06/22 20:51 [...] 1,000 Ml IV 11/07/23 09:59 75 mls/hr .[id number] [facility] Administration Cisatracurium Besylate 200 mg/ 200 mls @ 12.6 mls/hr 11/07/22 10:30 11/07/22 10:57 Dextrose IV 11/07/23 10:29 1.5 mcg/kg/min .[id number] [facility] 9.45 mls/hr Administration Protocol 2 MCG/KG/MIN [...] signed by Rubi Ramos MD> 11/08/22 0126 [facility] Work Phone: 1(220) 206-603805-01-2023 Progress note Author Ismael Huitron [facility] November 07, 2022 2:05pm Note Date/Time November 07, 2022 1:56pm [facility] [address] [place] [address] Pulmonology Progress Note Signed Patient: Lori Anton MR#: [id number] : 1965 Acct:[id number] Age/Sex: 57 / M Adm Date: 3 Loc: Room: [address] [place] [address] Type: ADM IN Attending Dr: Rubi Ramos MD Copies to: ~ Date of Service: 11/07/2022 Subjective Subjective Narrative: Patient developed progressive respiratory distress overnight associated with right-sided pleuritic pain, due to severe hypoxia and work of breathing, patientwas intubated by nurse morphology teacher this morning, immediately following that and with [...] [facility] patient expanded well once intubated, [...] signed by Ismael Huitron MD> 11/07/22 1405 [facility] Work Phone: 1([phone] 327-984205-01-2023 [facility] Procedure [facility]05-01-2023 History general Narrative - Reported* Type Description Date Medical History htn Medical History arthritis Medical History anxiety Hospital[place] History [facility] [place]2022 [facility] 05-01-2023 Consult note Author Sanjay Holt [facility] November 07, 2022 9:23am Note Date/Time November 07, 2022 9:11am [facility] [address] [place] [address] Infect. Disease Consult Note Signed Patient: Lori Anton MR#: [id number] : 1965 Acct:[id number] Age/Sex: 57 / M Adm Date: 3 Loc: Room: [address] [place] [address] Type: ADM IN Attending Dr: Netta Wiseman MD Copies to: Shaista Corona, PRECISION ASSEMBLER BENCH-C MD Netta Montez MD~ HPI Data of Consult Consult date: 11/07/22 Requesting Physician: Netta Wiseman MD Primary Care Provider: Shaista Corona Consult Narrative History of present illness: Mr. Anton is a 57 year old male who is currently intubated and sedated on the ventilator. He had been at [facility] prior to coming to [facility] and was centerspecifically to have a bronchoscopy performed. He has pneumonia that PCR panel from [facility] did not yield any targets but respiratory [...] Ampul.Neb) 3 ml INHALATION QID.RESP [facility] Stop: 11/05/23 07:59 Last Admin: 11/06/22 20:43 Dose: 3 ml Amlodipine Besylate (Amlodipine 10 Mg Tablet) 10 mg PO DAILY@0600 [facility] Stop: 11/05/23 08:59 Last Admin: 11/07/22 06:36 Dose: 10 mg Budesonide (Budesonide 0.5 Mg/2 Ml Ampul.Neb) 0.5 mg INHALATION BID [facility] Stop: 11/05/23 11:39 Last Admin: 11/06/22 20:43 Dose: 0.5 mg Buprenorphine HCl (Buprenorphine Hcl 2 Mg Tab.Subl) 2 mg SUBLINGUAL BID@0600,1800 [facility] Stop: 05/06/23 05:59 Last Admin: 11/07/22 06:38 Dose: 2 mg Carvedilol (Carvedilol 12.5 Mg Tablet) 12.5 mg PO BID@0600,1800 [facility] Stop: 11/06/23 20:59 Last Admin: 11/07/22 06:37 Dose: 12.5 mg Docusate Sodium (Docusate Liquid 100 Mg/10 Ml Udc) 100 mg OG-TUBE BID [facility] Stop: 11/07/23 08:59 Enoxaparin Sodium (Enoxaparin 40 Mg/0.4 Ml Syringe) 40 mg SUBCUT DAILY@1000 [facility] Stop: 11/06/23 09:59 Last Admin: 11/06/22 09:09 Dose: 40 mg Fluoxetine HCl (Fluoxetine Soln 20 Mg/5 Ml) 40 mg PO HS [facility] Stop: 11/07/23 21:59 Fluoxetine HCl (Fluoxetine Soln 20 Mg/5 Ml) 20 mg PO DAILY@0600 [facility] Stop: 11/08/23 05:59 Guaifenesin (Guaifenesin 600 Mg Tab.Er.12h) 1,200 mg PO BID [facility] Stop: 11/06/23 12:54 Last Admin: 11/06/22 20:51 Dose: 1,200 mg Levofloxacin (Levaquin) 750 mg in 150 mls @ 100 mls/hr IV Q24H [facility] Last Admin: 11/06/22 21:00 Dose: 100 mls/hr Clindamycin Phosphate (Cleocin) 600 mg in 50 mls @ 100 mls/hr IV Q8H [facility] Last Admin: 11/07/22 02:14 Dose: 100 mls/hr Fentanyl (Fentanyl 1,000 Mcg/100 Ml D5w) 1,000 mcg in 100 mls @ 2.5 mls/hr IV .Q24H [facility]; Protocol Propofol (Diprivan) 1,000 mg in 100 mls @ 12.6 mls/hr IV .Q7H57M [facility]; Protocol Stop: 11/07/23 07:59 Ketorolac Tromethamine (Ketorolac Tromethamine 30 Mg/Ml Vial) 30 mg IV-PUSH Q6HPRN PRN Reason: Pain Scale 7 - 10 Stop: 11/11/22 12:51 Last Admin: 11/07/22 04:21 Dose: 30 mg Lisinopril (Lisinopril 20 Mg Tablet) 20 mg PO DAILY@0600 [facility] Stop: 11/06/23 08:59 Last Admin: 11/07/22 06:37 Dose: 20 mg Magnesium Hydroxide (Magnesium Hydroxide Susp 30 Ml Udc) 30 ml PO DAILY PRN PRN Reason: Constipation Stop: 11/07/23 07:44 Methylprednisolone Sodium Succinate (Methylprednisolone Sod Succ/Pf 40 Mg/Ml (1ml) Vial) 40 mg IV-PUSH Q8HR [facility] Stop: 11/05/23 13:59 Last Admin: 11/07/22 06:39 [...] Vial) 40 mg IV-PUSH DAILY [facility] Stop: 11/08/23 08:59 Potassium Chloride (Potassium Chloride [...] @ 100 mls/hr IV Q8H [facility] Rx#:[id number] Oral 680 / 1480 500 / 500 [...] cultures remain negative. Respiratory PCR panel at [facility] without targeted pathogen but parainfluenza 3 virus targeted here. Will check antibodies to Legionella and urine antigen for Legionella and Streptococcus. Documented By: Sanjay Holt MD 11/07/22902 Signed By: <Electronically signed by MD Sanjay Holt> 11/07/22922 [facility] Work Phone: 1(387) 396-189805-01-2023 [facility] Progress note Author Kaylee Mclaughlin [facility] November 06, 2022 4:09pm Note Date/Time November 06, 2022 4:1 0pm [facility] [address] [place] [address] Pulmonology Progress Note Signed Patient: Lori Anton MR#: [id number] : 1965 Acct:[id number] Age/Sex: 57 / M Adm Date: 3 Loc: Room: [address] [place] [address] Type: ADM IN Attending Dr: Netta Wiseman [...] No deformity. -Skin: No rash. Slightly diaphoretic. -SAXOPHONE PLAYER: Alert and oriented x3, no focal deficits. [...] as the CT angiogram was done at [facility] and no disc was sent with records. We did call [facility] and requested chest CTA imaging. -Chest CT [...] Plan: -Per chest CTA report done at [facility], there is evidence of 2.6 cm right hilar lymph node compressing the right lower lobe bronchus leading to right lower lobe atelectasis . - Again, the CTA film is not available for my review at this time, this was requested from [facility]. However this is concerning for primary lung [...] undiagnosed COPD Plan -Patient was sent from [facility] after hewas told he needed bronchoscopy. -Repeat [...] signed by Kaylee Mclaughlin MD> 11/06/22 1609 [facility] Work Phone: [phone]) 149-357304-30-2023 Progress note Author Netta Wiseman [facility] November 06, 2022 8:49am Note Date/Time November 06, 2022 8:4 9am [facility] [address] [place] [address] Hospitalist Progress Note Signed Patient: Lori Anton MR#: [id number] : 1965 Acct:[id number] Age/Sex: 57 / M Adm Date: 3 Loc: 4P Room: [address] [place] [address] Type: ADM IN Attending Dr: Netta Wiseman [...] signed by Netta Wiseman MD> 11/06/22 0849 [facility] Work Phone: [phone] Consult note Author Kaylee Mclaughlin [facility] November 05, 2022 12:45pm Note Date/Time November 05, 2022 12: 05pm [facility] [address] [place] [address] Pulmonology Consult Note Signed Patient: Lori Anton MR#: [id number] : 1965 Acct:[id number] Age/Sex: 57 / M Adm Date: 3 Loc: Room: [address] [place] [address] Type: ADM IN Attending Dr: Netta Wiseman MD Copies to: Shaista Corona, PRECISION ASSEMBLER BENCH-C MD Netta Pillai MD~ HPI Date/Time of Consultation: Date of Service: 11/05/2022 Time of Service: 11:45 Consulting Provider: Kaylee Mclaughlin Requesting Provider: Netta Wiseman Reason for Consult: Acute hypoxemic respiratory failure, right lower lobe atelectasis History of Present Illness History of present illness: Mr. Anton is a 57 year old male with more than 20-gwjq-qddy smoking history whosmokes a pack a day, history of hypertension and arthritis was transferred from [facility] last night for acute hypoxic respiratory failure [...] the visit to the emergency room at [facility]. [facility] tells me he smokes [facility] [...] No recent travel. Chest CT angiogram at [facility] reported negative for PE, showed multifocal groundglass [...] No deformity. Skin: No rash. Slightly diaphoretic. SAXOPHONE PLAYER: Alert and oriented x3, no focal deficits. [...] as the CT angiogram was done at [facility] and no disc was sent with records. We did call [facility] and requested chest CTA imaging. -Start high flow nasal cannula with flow rate 40 L/min and FiO2 60% -Titrate FiO2 as needed for target SPO2> 90% -Potential underlying chronic obstructive of pulmonary disease, treat with nebulized short acting bronchodilators, budesonide, and systemic corticosteroids (2) Hilar lymphadenopathy: Plan: -Per chest CTA report done at [facility], there is evidence of 2.6 cm right hilar lymph node compressing the right lower lobe bronchus leading to right lower lobe atelectasis . - Again, the CTA film is not available for my review at this time, this was requested from [facility]. However this is concerning for primary lung [...] signed by Kaylee Mclaughlin MD> 11/05/22 1245 [facility] Work Phone: [phone]) 730-420204-29-2023 Progress note Author Netta Wiseman [facility] November 05, 2022 9:09am Note Date/Time November 05, 2022 9:0 9am [facility] [address] [place] [address] Event Note Signed Patient: Lori Anton MR#: [id number] : 1965 Acct:[id number] Age/Sex: 57 / M Adm Date: 3 Loc: 3T Room: [address] [place] [address] Type: ADM IN Attending Dr: Netta Wiseman MD Copies to: Shaista Corona, PRECISION ASSEMBLER BENCH-C Netta Wiseman MD~ Event Date & Type [...] Suspect obstructive pneumonia. CT scan done at [facility] did not show any pulmonary embolism. Patient [...] signed by Netta Wiseman MD> 11/05/22 0909 [facility] Work Phone: [phone] History and physical note Author Derek Alex [facility] November 05, 2022 6:38am Note Date/Time November 05, 2022 4:0 0am [facility] [address] [place] [address] Hospitalist H&P Signed with Addenda Patient: Lori Anton MR#: [id number] : 1965 Acct:[id number] Age/Sex: 57 / M Adm Date: 3 Loc: Room: [address] [place] [address] Type: ADM IN Attending Dr: Derek Alex MD Copies to: MD Shaista Bustamante, PRECISION ASSEMBLER BENCH-C Annabel Boo, MARLO~ ADDENDUM1 I personally saw this patient on the day of the encounter, reviewed the history,performed the borrego elements of the exam and formulated the plan of care and confirmed the nurse practitioners/residents/strategy intern written note. Addendum Documented By: Derek Alex MD 11/05/22 0637 Addendum Signed By: <Electronically signed by Derek Alex MD> 11/05/22 0637 HPI DATE OF EXAMINATION: 11/05/22 CHIEF COMPLAINT: fever, cough, right sided chest pain HISTORY OF PRESENT ILLNESS: Mr. Anton is a 57-year-old male with a PMH of HTN, arthritis that presented to the [facility] emergency room for fever, cough, and right- sided chest pain. Patient seen and evaluated upon transfer at bedside, at bedside. [facility] hospital work-up with a positive D-dimer [...] the day decided to go to the [facility] emergency room and then hewas transferred here. [...] unless noted in the HPI or below. [facility] Attestation Statement: The following information was validated [...] diet Documented By: Annabel Boo APRN 11/05/22 2526 Signed By: <Electronically signed by MARLO Boo> 11/05/22 6123 <Electronically signed by Derek Alex MD> 11/05/22 0635 [facility] Work Phone: 1([phone]) 739-609712-29-2022 Evaluation note* Encounter Date Diagnosis Assessment Notes [...] care provider if no improvement of symptoms. [facility] Other Evaluation note* Diagnosis Onset Date Resolution Status Acute hypoxemic respiratory failure acute Atelectasis acute Community acquired pneumonia acute Fever acute Hilar lymphadenopathy acute HTN (hypertension) acute Nicotine dependence acute Parainfluenza acute Tension pneumothorax acute [facility] Work Phone: Evaluation noteNo assessment information available [facility] Work Phone: History general Narrative - Reported* Type Description Date Medical History htn Medical History arthritis Medical History anxiety [facility] Other Hospital Discharge instructionsAmbulatory Orders* Initiate Home [...] [facility] right [facility]: Hospital Discharge instructions Additional Instructions Avoid smoking Push fluids Rest Follow with your PCP Return here if any problems persist or worsen include chest pain, shortness of breath or any other [facility] Work Phone: Summary Purpose Family [...] section and content) DATE CREATED AUTHOR 12/19/2018 [facility] DATE CREATED AUTHOR AUTHOR'S ORGANIZ ATION 11/11/2022 [facility] DATE CREATED AUTHOR AUTHOR'S ORGANIZ ATION 05/24/2023 [facility] DATE CREATED AUTHOR AUTHOR'S ORGANIZ ATION 09/06/2023 [facility] DATE CREATED AUTHOR AUTHOR'S ORGANIZ ATION 10/04/2023 [facility] REASON FOR VISIT (unrecogniz ed section and [...] Status: Inactive Member Role Status Dates Shaista Croona Primary Care Provider Active Lisha Silva APRN Emergency Provider Active Team Status: Inactive Member Role Status Dates Shaista Corona Primary Care Provider Active Evi Gay APRN [facility]- Attending Provider Active Team Status: Inactive [...] BE BASED ON THE PRIMARY CLINICAL RECORDS. [employer] [facility]. provides no warranty or guarantee of the accuracy or completeness of information in this document.
== END 2023-10-31 12:29 | disposition home or self-care (01) ==
LOC: RAD 12:29
PROVIDERS: PCP Nurse Practitioner; Visit Provider Nurse Practitioner
DX: M79.605 Pain in left leg (principal); M54.16 Radiculopathy, lumbar region; M51.36 Other intervertebral disc degeneration, lumbar region; M17.12 Unilateral primary osteoarthritis, left knee; M19.072 Primary osteoarthritis, left ankle and foot
CPT/HCPCS: 72110; 73564; 73590

== ENCOUNTER 2023-11-02 08:03 | Emergency (ER) | payer BC, SELFPAY ==
[2023-11-02 08:07] VITALS: BP 119/79; PULSE 74; TEMP 36.5; O2SAT 97; BMI 25.6
--- NOTE | 2023-11-02 08:47 | ED_ITS ---
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 But several days ago he experienced left calf pain and pain behind the left knee that quickly escalated. The patient was evaluated in our ED where he had a negative left LE US and then his PCP sent him for xrays of the left tib/fib, left knee and lumbar spine. He did not have a DVT. His xrays reveal left knee osteoarthritis. He has had no relief despite taking prednisone, muscle relaxers, high dose tylenol, even Neurontin was prescribed. He had prior opiate addiction and does not want opiates/narcotics. He was told to see ortho but that a referral could take7 to 10 days . He is frustrated and wants to know where to go from here. Related Data Home Medications ?Medication ?Instructions ?Recorded ?Confirmed amlodipine 10 mg tablet 10 mg PO DAILY 10/29/23 10/29/23 buprenorphine 8 mg-naloxone 2 mg 0.5 film sublingual DAILY 10/29/23 10/29/23 sublingual film (Suboxone) carvedilol 25 mg tablet 25 mg PO BID 10/29/23 10/29/23 diclofenac sodium 50 mg 50 mg PO Q8H PRN pain 10/29/23 10/29/23 tablet,delayed release fluoxetine 20 mg capsule 40 mg PO QPM 10/29/23 10/29/23 lisinopril 40 mg tablet 40 mg PO DAILY 10/29/23 10/29/23 tizanidine 4 mg tablet 4 mg PO TID 10/29/23 10/29/23 Previous Rx's ?Medication ?Instructions ?Recorded ketorolac 10 mg tablet 10 mg PO Q8H 5 days #15 tabs 11/02/23 Allergies Allergy/AdvReac Type Severity Reaction Status Date / Time erythromycin base Allergy Severe Verified 10/29/23 21:39 Penicillins Allergy Severe Verified 10/29/23 21:39 Exam Narrative Exam Narrative: Vital signs reviewed and nurse's notes. The patient is not hypoxic. General: Alert, no acute distress, patient resting comfortably Skin: warm, intact, no pallor noted Head: Normocephalic, atraumatic Eye: Normal conjunctiva Respiratory: No acute distress Musculoskeletal: L knee is markedly swollen. There is no ecchymosis. No left knee, left calf or left LE erythema or warmth noted. DP and PT pulses are intact 2+. Normal sensation, normal capillary refill less than 2 seconds. There is no cyanosis or mottling noted to left LE. The patient has left popliteal and left calf tenderness. No left popliteal mass noted. The patient has no laxity with varus or valgus stressing. The patient has negative anterior drawer and Zee testing. The patient was able to flex and extend although with pain. Patient was able to extend leg off the cart without difficulty. No tenderness noted to the 5th MT, midfoot, ankle or proximal fibular area. There is no pain with calcaneal squeeze, achilles tendon is intact and no defect is palpated. The patient has no pelvic instability. The patient has no shortening or rotation noted to the bilateral lower extremities. Increased left calf pain with left ankle dorsiflexion. Neurological: alert and orient x4, normal sensory and motor observed. Psychiatric: Cooperative Constitutional Vital Signs, click to edit/add: Last Vital Signs Temp 97.7 F 11/02/23 08:07 Pulse 74 11/02/23 08:07 Resp 18 11/02/23 08:07 BP 119/79 11/02/23 08:07 Pulse Ox 97 11/02/23 08:07 O2 Del Method Room Air 11/02/23 08:07 Course Vital Signs Vital signs: Vital Signs Temperature 97.7 F 11/02/23 08:07 Pulse Rate 74 11/02/23 08:07 Respiratory Rate 18 11/02/23 08:07 Blood Pressure 119/79 11/02/23 08:07 Pulse Oximetry 97 11/02/23 08:07 Oxygen Delivery Method Room Air 11/02/23 08:07 Temperature 97.7 F 11/02/23 08:07 Pulse Rate 74 11/02/23 08:07 Respiratory Rate 18 11/02/23 08:07 Blood Pressure 119/79 11/02/23 08:07 Pulse Oximetry 97 11/02/23 08:07 Oxygen Delivery Method Room Air 11/02/23 08:07 MDM - Extremity (Nontraumatic) MDM Narrative Medical decision making narrative: I reviewed the patient's left LE US as well as the xrays of the left knee, left tib/fib and lumbar spine. Patient's exam suggests a combination of left knee osteoarthritis and strain of the left calf. He has had no relief with perdnisoneand muscle relaxers and is taking excessive amounts of tylenol - which I counseled him against. He has prior addiction to opiates and does not want narcotic prescriptions. Long talk with the patient about his symptoms. He received IM Toradol. ED nurse applied a knee immobilizer to the left LE and the patient was given and educated on crutches. He was given an appointment with Dr Li for MondayNovember 05 at 10am. he was given a work excuse. He was prescribed a 5 day course of prednisone. Discharge Plan Discharge Stand Alone Forms: Portal Instructions Chief Complaint: Extremity Problem, Nontraumatic Clinical Impression: Leg pain, left, Knee osteoarthritis Patient Disposition: Home, Self-Care Time of Disposition Decision: 08:48 Prescriptions / Home Meds: New ketorolac 10 mg tablet 10 mg PO Q8H 5 Days Qty: 15 0RF No Action amlodipine 10 mg tablet 10 mg PO DAILY buprenorphine-naloxone [Suboxone] 8-2 mg film 0.5 film sublingual DAILY carvedilol 25 mg tablet 25 mg PO BID diclofenac sodium 50 mg tablet,delayed release (DR/EC) 50 mg PO Q8H PRN (Reason: pain) fluoxetine 20 mg capsule 40 mg PO QPM lisinopril 40 mg tablet 40 mg PO DAILY tizanidine 4 mg tablet 4 mg PO TID Print Language: Serbian Instructions: Osteoarthritis (ED), Leg Pain (ED) Referrals: Shaista Corona NP [Primary Care Provider] - 1 week Thad Li MD [Physician] - 11/06/23 10:00 am
[2023-11-02] MEDS: KETOROLAC TROMETHAMINE 60 MG/2 ML VIAL IM (09:15)
[2023-11-02 09:25] VITALS: BP 117/81; PULSE 78; O2SAT 97
== END 2023-11-02 09:27 | disposition home or self-care (01) ==
PROVIDERS: Emergency Provider Emergency Medicine; PCP Nurse Practitioner
DX: M79.605 Pain in left leg (principal); M17.12 Unilateral primary osteoarthritis, left knee; Z79.899 Other long term (current) drug therapy
CPT/HCPCS: 96372; 99284

== ENCOUNTER 2023-11-13 07:11 | Outpatient (OUT) | payer BC, SELFPAY ==
--- NOTE | 2023-11-13 07:14 | MR_ITS ---
[place] [id number] Patient Name: LORI GOMEZ MRN: [id number] date: 1965 Sex: M Assigned Patient Location: MRI Current Patient Location: MRI Accession/Order Number: [id number] Exam Date: 11/13/2023 07:48 Report Date: 11/13/2023 08:45 At the request of: YOSELIN HERNANDEZ Procedure: MR lumbar spine wo con MR lumbar spine wo con, 11/13/2023 7:48 AM EDT INDICATION: Lumbar Radiculopathy M54.16 COMPARISON: Prior x-ray of the lumbar spine dated 10/28/2023 TECHNIQUE: Multiplanar, multisequential MRI images of lumbar spine were obtained without contrast. FINDINGS: For dictation purposes, the lowest complete disc space in the lumbar spine considered as L5-S1. There is loss of normal physiologic lumbar lordosis with levoscoliosis centered at the level of L2-L3 with focal right-sided sclerosis. The vertebral height is relatively preserved. The conus medullaris is at the level of L1. No signal abnormality within the visualized spinal cord is noted. Level of T12-L1 is unremarkable. At the level of L1-L2, there are disc bulge with mild left neuroforaminal narrowing and mild canal stenosis. At the level of L2-L3, there are disc bulge with moderate right and mild left neuroforaminal narrowing and moderate canal stenosis. At the level of L3-4, there are disc bulge with moderate bilateral neuroforaminal narrowing and moderate to severe canal stenosis. At the level of L4-5, there are disc bulge with mild bilateral neuroforaminal narrowing and mild canal stenosis. At the level of L5-S1, there are disc bulge with mild right and moderate neuroforaminal narrowing and no canal stenosis. Bilateral S1 nerve roots are in close contact with the disc bulge in the lateral recesses. The paraspinal muscles are unremarkable. MR/MR lumbar spine wo con IMPRESSION: Moderate degenerative changes of lumbar spine in particular at L2-L3, L3-L4 and L5-S1. Electronically authenticated by: ALLYN BEE Date: 11/13/2023 08:45
--- OUTSIDE RECORDS SUMMARY | 2023-11-13 07:15 | XMS_ITS | CCD ---
Author Organization [facility] Care Team Providers Care Asw Specialist Name Role Phone Supriya Brown Unavailable AICTHERON, RADHA SHAISTA Primary Care Unavailable MARKER ., DR KELLER Attending Unavailable MARKER ., DR KELELR Admitting Unavailable AICHHOLZ, RADHA SHAISTA Primary Care Unavailable CHRISTINA STEVENS Consulting Unavailable JENIFER ., MERI Attending Unavailable JENIFER ., MERI Admitting Unavailable SKYE WOODS Consulting Unavailable CHERI .CATRACHITO Consulting Unavailable AICHHOLZ, BROOD HATCHERY MANAGER SHAISTA Primary Care Unavailable CHRISTINA STEVENS Attending Unavailable CHRISTINA STEVENS Admitting Unavailable LORI RODRIGUEZ Consulting Unavailable AICHHOLZ, BROOD HATCHERY MANAGER SHAISTA Primary Care Unavailable MIKKI .VASILE Attending Unavailable MIKKI VASILE Glaser Consulting Unavailable MIKKI .MICKID Admitting Unavailable LORI DOWNEY Consulting Unavailable MERI SIMPSON Consulting Unavailable Shaista Corona Primary Care Provider MD Derek Alex Admit Provider MD Sanjay Holt Other Provider MD Reginald Arroyo Other Provider MD Rubi Ramos Attending Provider MARLO Silva Emergency Provider [phone] MARLO Gay Attending Provider Ismael Huitron Unavailable Gregg PATTEN Attending Unavailable Gregg PATTEN Attending Unavailable Rosa CORTEZ Attending Unavailable Gregg PATTEN Attending Unavailable Shaista Corona Primary Care Provider [phone] DARLINE Garcia Emergency Provider Ej Garcia Attending Unavailable Ej Garcia Admitting Unavailable Shaista Corona Primary Care Unavailable Angelina Coronaa J Primary Care Unavailable Antoni Gayidi Attending Unavailable Deidra, Evi Admitting Unavailable Sanjay Holt Consulting Unavailable Isai Derek Admitting Unavailable Rubi Ramos Attending Unavailable Shaista Corona Primary Care Unavailable Reginald Arroyo Consulting Unavaila Lisha Herr Attending Unavailable Lisha Silva Admitting Unavailable Aichtheron, Shaista J Primary Care Unavailable CJ, SHAISTA Attending Unavailable SHAISTA CORONA Attending Unavailable Allergies Allergy Classification Reported Allergen(s) Allergy Type Date of Onset Reaction(s) Facility (1 source) Azithromycin Drug Allergy Unknown [facility] ([facility] Other (3 sources) Penicillin; Translations: [penicillin] Drug Allergy Unknown [facility] Repository (1 source) Azithromycin Drug Allergy [facility] Repository (5 sources) Erythromycin Drug Allergy 3 Rash [facility] Repository (1 source) E.E.S. Drug allergy (disorder) 3 [facility] Repository (5 sources) Penicillins; Translations: [Penicillins] Allergy to substance 3 Anaphylaxis [facility] (1 source) Erythromycin Drug Allergy rash [facility] Other (1 source) erythromycin base Drug allergy (disorder) 4 [facility] Repository Medications Current Medications Medication Drug Class(es) Dates Sig (Normalized) Sig (Original) [id number] 200 actuat albuterol 0.09 mg/actuat metered dose [...] mg/ml oral solution (1 source) Phenothiazine, Uncompetitive X-mprmgz-J-aspartate Receptor Antagonist, Sigma-1 Agonist Start: 07-31-2023 take [...] 11-05-2022 Chronic Other aftercare (1 source) Other care home (current) drug therapy; Translations: [OTH JAIL CURRENT DRUG THERAPY] Onset: 08-29-2022 Episodic Other [...] SARS-CoV-2 (COVID-19) Ab IA Ql Negative Negative [facility] Comment on above: This is a duplicate FOCUS Trainr Xpert Xpress CoV-2/Flu/RSV Plus RNA by RT-PCR result to be used for statistical tracking purpose only. SARS-CoV-2 (COVID-19) RNA ROWENA+probe Ql (Unsp spec) [facility] COVID-19 / Flu A/B / RSV PCR on 07-31-2023 SARS-CoV-2 (COVID-19) RNA ROWENA+probe Ql (Unsp spec) Normal [facility] Comment on above: Performed By: #### C OVID19 FLU RSV, CEPHEID NEG ####[facility] [address] [place] [address] [facility] Cepheid COVID PCR Negativeon 07-31-2023 SARS-CoV-2 (COVID-19) RNA ROWENA+probe Ql (Unsp spec) Negative Normal Negative [facility] Comment on above: Result Comment: This is a duplicate Cepheid Xpert Xpress CoV-2/Flu/RSV Plus RNA by RT-PCR result to be used for statistical tracking purpose only.PERFORMED BY:[address] [place], [place] [id number] MEDICAL DIRECTORNATI LAUREN M.D. Performed By: #### C OVID19 FLU RSV, CEPHEID NEG ####[facility] [id number] [place] [address] [facility] Consenton 05-23-2023 Consent [id number]#[id number] [facility] Registrationon 05-23-2023 Registration [id number]#[id number] [facility] XR chest 2V*on 12-26-2022 XR chest 2V* Normal [facility] Consenton 12-15-2022 Consent [id number]:1 27 [facility] In office Testingon 12-16-19 In office Testing [id number]#1.00CD:12 7 [facility] Registrationon 12-15-2022 Registration [id number]:1 27 [facility] Activated partial thrombopla stin time (aPTT) in platelet poor plasma by coagulation aOrdered By: Lisha Silva on 12-08-2022 aPTT Coag (PPP) [Time] 23.5 s 25.1-36.5 [facility] Automated erythrocytes count in urine sediment (number/area)Ordered By: Lisha Silva on 12-08-2022 RBC Auto (Urine sed) [#/Area] 1-2 [HPF] 0-4 [facility] Automated leukocytes count i n urine sediment (number/area)Ordered By: Lisha Silva on 12-08-2022 WBC Auto (Urine sed) [#/Area] None seen [HPF] 0-4 [facility] B-Type Natriuretic Peptideon 12-08-2022 Natriuretic peptide B (Bld) [Mass/Vol] 22.0 pg/mL Normal 5-100 [facility] Comment on above: Result Comment: PERF ORMED BY:[address] [place], [place] [phone] MEDICAL DIRECTORNATI LAUREN M.D. Performed By: #### H S TROP, CBC, BMP, BNP, DDIMER, PT, PTT ####[address] [address] [facility] Basic Metabolic Panelon Anion gap [Moles/Vol] 10.9 mmol/L Normal 6.0-15.0 [facility] Comment on above: Performed By: #### H S TROP, CBC, BMP, BNP, DDIMER, PT, PTT ####[address] [address] [facility] Calcium [Mass/Vol] 8.6 mg/dL Normal 8.6-10.3 [facility] Comment on above: Performed By: #### H S TROP, CBC, BMP, BNP, DDIMER, PT, PTT ####[address] [address] [facility] Chloride [Moles/Vol] 105 mmol/L Normal 98-107 [facility] Comment on above: Performed By: #### H S TROP, CBC, BMP, BNP, DDIMER, PT, PTT ####[facility] [place] [address] [facility] CO2 [Moles/Vol] 28.0 mmol/L Normal 21.0-31.0 [facility] Comment on above: Performed By: #### H S TROP, CBC, BMP, BNP, DDIMER, PT, PTT ####[address] [place] [address] [facility] Creatinine [Mass/Vol] 0.53 mg/dL Low 0.70-1.30 [facility] Comment on above: Performed By: #### H S TROP, CBC, BMP, BNP, DDIMER, PT, PTT ####[address] [place] [id number] [facility] Creatinine Clr Calc Pharmacy 188.22 [facility] Comment on above: Result Comment: PERF ORMED BY:[address] [place], [place] [phone] MEDICAL ALEKSANDAR LAUREN M.D. Performed By: #### H S TROP, CBC, BMP, BNP, DDIMER, PT, PTT ####[id number] [facility] GFR/1.73 sq M.predicted MDRD (S/P/Bld) [Vol rate/Area] mL/min/{1.73_m2} [facility] Comment on above: Performed By: #### H S TROP, CBC, BMP, BNP, DDIMER, PT, PTT ####[address] [place] [id number] [facility] Glucose [Mass/Vol] 99 mg/dL Normal 70-100 [facility] Comment on above: Result Comment: [place] Glucose Reference Range is dependent on time and content of last meal. Glucose of more than 200 mg/dL in a nonstressed, ambulatory subject supports the diagnosis of Diabetes Mellitus. ADA recommended reference range Performed By: #### H S TROP, CBC, BMP, BNP, DDIMER, PT, PTT ####[address] [place] [id number] [facility] Potassium [Moles/Vol] 3.9 mmol/L Normal 3.5-5.1 [facility] Comment on above: Performed By: #### H S TROP, CBC, BMP, BNP, DDIMER, PT, PTT ####[facility] [id number] Sodium [Moles/Vol] 140 mmol/L Normal 136-145 [facility] Comment on above: Performed By: #### H S TROP, CBC, BMP, BNP, DDIMER, PT, PTT ####[facility] [id number] Urea nitrogen [Mass/Vol] 11 mg/dL Normal 7-25 [facility] Comment on above: Performed By: #### H S TROP, CBC, BMP, BNP, DDIMER, PT, PTT ####[facility] [id number] Basophils Auto (Bld) [#/Vol] Ordered By: Lisha Silva on 12-08-2022 Basophils (Bld) [#/Vol] 0.2 10*3/uL 0.0-0.2 [facility] Basophils/100 WBC Auto (Bld) Ordered By: Lisha Silva on 12-08-2022 Basophils/100 WBC (Bld) 2.6 % . [facility] Bilirubin Test strip Ql (U)O rdered By: Lisha Silva on 12-08-2022 Bilirubin Ql (U) Negative Negative [facility] CT angio chest PE protocolon 12-08-2022 CT angio chest PE protocol Normal [facility] Calcium [Mass/volume] in Ser um or PlasmaOrdered By: Lisha Silva on 12-08-2022 Calcium [Mass/Vol] 8.6 mg/dL 8.6-10.3 [facility] Carbon dioxide, total [Moles /volume] in Serum or PlasmaOrdered By: Lisha Silva on 12-08-2022 CO2 [Moles/Vol] 28.0 mmol/L 21.0-31.0 [facility] Chloride [Moles/volume] in S thang or PlasmaOrdered By: Lisha Silva on 12-08-2022 Chloride [Moles/Vol] 105 mmol/L 98-107 [facility] Color Auto (U)Ordered By: Khadijah Silva on 12-08-2022 Color (U) Yellow Yellow [facility] Complete Blood Count Auto Di ffon 12-08-2022 Basophils (Bld) [#/Vol] 0.2 10*3/uL Normal 0.0-0.2 [facility] Comment on above: Result Comment: PERF ORMED BY:[address] [place], [place] [phone] MEDICAL DIRECTORNATI LAUREN M.D. Performed By: #### H S TROP, CBC, BMP, BNP, DDIMER, PT, PTT ####[address] Basophils/100 WBC (Bld) 2.6 % Normal . [facility] Comment on above: Performed By: #### H S TROP, CBC, BMP, BNP, DDIMER, PT, PTT ####[address] Eosinophils (Bld) [#/Vol] 0.3 10*3/uL Normal 0.0-0.45 [facility] Comment on above: Performed By: #### H S TROP, CBC, BMP, BNP, DDIMER, PT, PTT ####[place] [id number] [facility] Eosinophils/100 WBC (Bld) 3.8 % Normal . [facility] Comment on above: Performed By: #### H S TROP, CBC, BMP, BNP, DDIMER, PT, PTT ####[place] [id number] [facility] Erythrocyte distribution width (RBC) [Ratio] 14.8 % Normal 12.0-14.8 [facility] Comment on above: Performed By: #### H S TROP, CBC, BMP, BNP, DDIMER, PT, PTT ####[place] [id number] [facility] Hematocrit (Bld) [Volume fraction] 35.8 % Low 38.8-50.0 [facility] Comment on above: Performed By: #### H S TROP, CBC, BMP, BNP, DDIMER, PT, PTT ####[address] Hemoglobin (Bld) [Mass/Vol] 12.0 g/dL Low 13.0-17.0 [facility] Comment on above: Performed By: #### H S TROP, CBC, BMP, BNP, DDIMER, PT, PTT ####[address] Lymphocytes (Bld) [#/Vol] 3.7 10*3/uL Normal 1.00-4.8 [facility] Comment on above: Performed By: #### H S TROP, CBC, BMP, BNP, DDIMER, PT, PTT ####[address] Lymphocytes/100 WBC (Bld) 48.0 % Normal . [facility] Comment on above: Performed By: #### H S TROP, CBC, BMP, BNP, DDIMER, PT, PTT ####[address] MCH (RBC) [Entitic mass] 30.4 pg Normal 27.5-35.2 [facility] Comment on above: Performed By: #### H S TROP, CBC, BMP, BNP, DDIMER, PT, PTT ####[address] MCV (RBC) [Entitic vol] 90.4 fL Normal 83.5-101 [facility] Comment on above: Performed By: #### H S TROP, CBC, BMP, BNP, DDIMER, PT, PTT ####[address] Mean Corpuscular HGB Conc 33.6 g/dL Normal 32.5-35.6 [facility] Comment on above: Performed By: #### H S TROP, CBC, BMP, BNP, DDIMER, PT, PTT ####[address] [place] [address] [place] Monocytes (Bld) [#/Vol] 0.7 10*3/uL Normal 0.0-0.8 [facility] Comment on above: Performed By: #### H S TROP, CBC, BMP, BNP, DDIMER, PT, PTT ####[address] Monocytes/100 WBC (Bld) 21.84 % High 0.00-20.00 [facility] Comment on above: Result Comment: For adults in ED, MDW > 20.0 may be associated with a higher risk of sepsis during the first 12 hrs of hospital admission Performed By: #### H S TROP, CBC, BMP, BNP, DDIMER, PT, PTT ####[address] Monocytes/100 WBC (Bld) 9.6 % Normal . [facility] Comment on above: Performed By: #### H S TROP, CBC, BMP, BNP, DDIMER, PT, PTT ####[address] Neutrophils (Bld) [#/Vol] 2.7 10*3/uL Normal 1.8-7.7 [facility] Comment on above: Performed By: #### H S TROP, CBC, BMP, BNP, DDIMER, PT, PTT ####[address] Neutrophils/100 WBC (Bld) 36.0 % Normal . [facility] Comment on above: Performed By: #### H S TROP, CBC, BMP, BNP, DDIMER, PT, PTT ####[address] NRBC% 0.1 /100{WBC} Normal 0-0.5 [facility] Comment on above: Performed By: #### H S TROP, CBC, BMP, BNP, DDIMER, PT, PTT ####[address] Platelet mean volume (Bld) [Entitic vol] 7.6 fL Normal 6.6-10.1 [facility] Comment on above: Performed By: #### H S TROP, CBC, BMP, BNP, DDIMER, PT, PTT ####[facility] Platelets (Bld) [#/Vol] 299 10*3/uL Normal 150-450 [facility] Comment on above: Performed By: #### H S TROP, CBC, BMP, BNP, DDIMER, PT, PTT ####[facility] RBC (Bld) [#/Vol] 3.96 10*6/uL Normal 3.90-5.60 [facility] Comment on above: Performed By: #### H S TROP, CBC, BMP, BNP, DDIMER, PT, PTT ####[facility] [place] [id number] [facility] WBC (Bld) [#/Vol] 7.6 10*3/uL Normal 4.1-10.5 [facility] Comment on above: Performed By: #### H S TROP, CBC, BMP, BNP, DDIMER, PT, PTT ####[facility] [place] [id number] [facility] Creatinine [Mass/volume] in Serum or PlasmaOrdered By: Lisha Silva on 12-08-2022 Creatinine [Mass/Vol] 0.53 mg/dL 0.70-1.30 [facility] D-Dimer High Sensitivityon 0 12-08-2022 D-Dimer High Sensitivity 435 ng/mL High 0-243 [facility] Comment on above: Result Comment: The reference [...] in hospitalized patients due to co-morbid conditions.PERFORMED BY:[address] [place], [place] [phone] MEDICAL ALEKSANDAR LAUREN M.D. Performed By: #### H S TROP, CBC, BMP, BNP, DDIMER, PT, PTT ####[address] [address] [facility] Dipstick and Microscopicon 0 12-08-2022 Appearance (U) Clear Normal Clear [facility] Comment on above: Order Comment: Name Collection Type:: Clean-Voided Midstream Performed By: #### A DDONUAPLUS ####[address] [address] [facility] Bacteria,Urine None Seen Normal None Seen [facility] Comment on above: Order Comment: Name Collection Type:: Clean-Voided Midstream Performed By: #### A DDONUAPLUS ####[address] [address] [facility] Bilirubin,Urine Negative Normal Negative [facility] Comment on above: Order Comment: Name Collection Type:: Clean-Voided Midstream Performed By: #### A DDONUAPLUS ####[address] [address] [facility] Color (U) Yellow Normal Yellow [facility] Comment on above: Order Comment: Name Collection Type:: Clean-Voided Midstream Performed By: #### A DDONUAPLUS ####[address] [address] [facility] Glucose Ql (U) Normal Normal Normal [facility] Comment on above: Order Comment: Name Collection Type:: Clean-Voided Midstream Performed By: #### A DDONUAPLUS ####[address] [address] [facility] Hyaline Casts,Urine 0-8 Normal 0-8 [facility] Comment on above: Order Comment: Name Collection Type:: Clean-Voided Midstream Result Comment: PERF ORMED BY:[address] [place] [phone] MEDICAL DIRECTORNATI LAUREN M.D. Performed By: #### A DDONUAPLUS ####[address] [address] [facility] Ketones Ql (U) Negative Normal Negative [facility] Comment on above: Order Comment: Name Collection Type:: Clean-Voided Midstream Performed By: #### A DDONUAPLUS ####[address] [address] [facility] Leukocyte esterase Test strip Ql (U) Negative Normal Negative [facility] Comment on above: Order Comment: Name Collection Type:: Clean-Voided Midstream Performed By: #### A DDONUAPLUS ####[address] [address] [facility] Nitrite,Urine Negative Normal Negative [facility] Comment on above: Order Comment: Name Collection Type:: Clean-Voided Midstream Performed By: #### A DDONUAPLUS ####[address] [address] [facility] Occult Blood,Urine Trace High Negative [facility] Comment on above: Order Comment: Name Collection Type:: Clean-Voided Midstream Result Comment: PERF ORMED BY:[address] [place]ZIRosalbaAlfreditoALE, [place] [phone] MEDICAL DIRECTORNATI LAUREN M.D. Performed By: #### A DDONUAPLUS ####[address] [address] [facility] pH (U) 6.5 [pH] Normal 5.0-9.0 [facility] Comment on above: Order Comment: Name Collection Type:: Clean-Voided Midstream Performed By: #### A DDONUAPLUS ####[address] [address] [facility] Protein,Urine Negative Normal Negative [facility] Comment on above: Order Comment: Name Collection Type:: Clean-Voided Midstream Performed By: #### A DDONUAPLUS ####[address] [address] [facility] RBC,Urine 1-2 Normal 0-4 [facility] Comment on above: Order Comment: Name Collection Type:: Clean-Voided Midstream Performed By: #### A DDONUAPLUS ####[place] [id number] [facility] Specificy [place],Urine 1.040 High 1.001-1.03 0 [facility] Comment on above: Order Comment: Name Collection Type:: Clean-Voided Midstream Performed By: #### A DDONUAPLUS ####[address] [address] [facility] Squamous Epithelial Cell,Urine None Seen Normal 0-2 [facility] Comment on above: Order Comment: Name Collection Type:: Clean-Voided Midstream Performed By: #### A DDONUAPLUS ####[address] [address] [facility] Urobilinogen,Urine Normal Normal Normal [facility] Comment on above: Order Comment: Name Collection Type:: Clean-Voided Midstream Performed By: #### A DDONUAPLUS ####[id number] [facility] WBC,Urine None Seen Normal 0-4 [facility] Comment on above: Order Comment: Name Collection Type:: Clean-Voided Midstream Performed By: #### A DDONUAPLUS ####[place] [id number] [facility] ECG 12 lead ECGon 12-08-2022 ECG 12 lead ECG Normal [facility] Eosinophils Auto (Bld) [#/Vo l]Ordered By: Lisha Silva on 12-08-2022 Eosinophils (Bld) [#/Vol] 0.3 10*3/uL 0.0-0.45 [facility] Eosinophils/100 WBC Auto (Bl d)Ordered By: Lisha Silva on 12-08-2022 Eosinophils/100 WBC (Bld) 3.8 % . [facility] Erythrocyte distribution wid th Auto (RBC) [Ratio]Ordered By: Lisha Silva on 12-08-2022 Erythrocyte distribution width (RBC) [Ratio] 14.8 % 12.0-14.8 [facility] Glucose [Mass/volume] in Ser um or PlasmaOrdered By: Lisha Silva on 12-08-2022 Glucose [Mass/Vol] 99 mg/dL 70-100 [facility] Comment on above: ADA recommended refe rence rangeRandom Glucose Reference Range is dependent on time and content of last meal. Glucose of more than 200 mg/dL in a nonstressed, ambulatory subject supports the diagnosis of Diabetes Mellitus. Hematocrit Auto (Bld) [Volum e fraction]Ordered By: Lisha Silva on 12-08-2022 Hematocrit (Bld) [Volume fraction] 35.8 % 38.8-50.0 [facility] Hemoglobin [Mass/volume] in BloodOrdered By: Lisha Silva on 12-08-2022 Hemoglobin (Bld) [Mass/Vol] 12.0 g/dL 13.0-17.0 [facility] Ketones Auto test strip (U) [Mass/Vol]Ordered By: Lisha Silva on 12-08-2022 Ketones (U) [Mass/Vol] Negative Negative [facility] Laboratory - CoagulationOrde red By: Lisha Silva on 12-08-2022 PT Coag (PPP) [Time] 12.6 s 9.0-12.9 [facility] Laboratory - UrinalysisOrder ed By: Lisha Silva on 12-08-2022 Hyaline casts LM Ql (Urine sed) 0-8 [LPF] 0-8 [facility] Leukocytes [#/volume] correc wiliam for nucleated erythrocytes in Blood by Automated counOrdered By: Lisha Silva on 12-08-2022 WBC corrected for nucl RBC Auto (Bld) [#/Vol] 7.6 10*3/uL 4.1-10.5 [facility] Lymphocytes Auto (Bld) [#/Vo l]Ordered By: Lisha Silva on 12-08-2022 Lymphocytes (Bld) [#/Vol] 3.7 10*3/uL 1.00-4.8 [facility] Lymphocytes/100 WBC Auto (Bl d)Ordered By: Lisha Silva on 12-08-2022 Lymphocytes/100 WBC (Bld) 48.0 % . [facility] MCH Auto (RBC) [Entitic mass ]Ordered By: Lisha Silva on 12-08-2022 MCH (RBC) [Entitic mass] 30.4 pg 27.5-35.2 [facility] MCHC Auto (RBC) [Mass/Vol]Or dered By: Lisha Silva on 12-08-2022 MCHC (RBC) [Mass/Vol] 33.6 g/dL 32.5-35.6 [facility] MCV Auto (RBC) [Entitic vol] Ordered By: Lisha Silva on 12-08-2022 MCV (RBC) [Entitic vol] 90.4 fL 83.5-101 [facility] Monocyte distribution width [Entitic volume] in Blood by AutomatedOrdered By: Lisha Silva on 12-08-2022 Monocyte distribution width Auto (Bld) [Entitic vol] 21.84 % 0.00-20.00 [facility] Comment on above: For adults in ED, MD W > 20.0 may be associated with a higher risk of sepsis during the first 12 hrs of hospital admission Monocytes Auto (Bld) [#/Vol] Ordered By: Lisha Silva on 12-08-2022 Monocytes (Bld) [#/Vol] 0.7 10*3/uL 0.0-0.8 [facility] Monocytes/100 WBC Auto (Bld) Ordered By: Lisha Silva on 12-08-2022 Monocytes/100 WBC (Bld) 9.6 % . [facility] Natriuretic peptide B [Mass/ Vol]Ordered By: Lisha Silva on 12-08-2022 Natriuretic peptide B (Bld) [Mass/Vol] 22.0 pg/mL 5-100 [facility] Neutrophils Auto (Bld) [#/Vo l]Ordered By: Lisha Silva on 12-08-2022 Neutrophils (Bld) [#/Vol] 2.7 10*3/uL 1.8-7.7 [facility] Neutrophils/100 WBC Auto (Bl d)Ordered By: Lisha Silva on 12-08-2022 Neutrophils/100 WBC (Bld) 36.0 % . [facility] [facility] Test strip Ql (U)Ord ered By: Lisha Silva on 12-08-2022 Nitrite Ql (U) Negative Negative [facility] No Panel InformationOrdered By: Lisha Silva on 12-08-2022 D-Dimer Quantitative (PE/DVT) 435 ng/mL 0-243 [facility] Comment on above: The reference range for [...] conditions. Estimated GFR (CKD-EPI) > 60.0 mL/Min [facility] Creatinine Clearance (Chem 188.22 [facility] Nucleated erythrocytes [Pres ence] in Blood by Automated countOrdered By: Lisha Silva on 12-08-2022 Nucleated RBC Auto Ql (Bld) 0.1 /100{WBC} 0-0.5 [facility] Partial Thromboplastin Timeo n 12-08-2022 aPTT Coag (Bld) [Time] 23.5 s Low 25.1-36.5 [facility] Comment on above: Performed By: #### H S TROP, CBC, BMP, BNP, DDIMER, PT, PTT ####[facility] [id number] [facility] Platelet mean volume Auto (B ld) [Entitic vol]Ordered By: Lisha Silva on 12-08-2022 Platelet mean volume (Bld) [Entitic vol] 7.6 fL 6.6-10.1 [facility] Platelet poor plasma interna tional normalized ratio (INR) by coagulation assay (relatOrdered By: Lisha Silva on 12-08-2022 INR Coag (PPP) [Relative time] 1.1 {INR} [facility] Comment on above: INR Therapeutic Rang e [...] 12-08-2022 Platelets (Bld) [#/Vol] 299 10*3/uL 150-450 [facility] Potassium [Moles/volume] in Serum or PlasmaOrdered By: Lisha Silva on 12-08-2022 Potassium [Moles/Vol] 3.9 mmol/L 3.5-5.1 [facility] Protein Auto test strip (U) [Mass/Vol]Ordered By: Lisha Silva on 12-08-2022 Protein (U) [Mass/Vol] Negative Negative [facility] Prothrombin Time INRon 12-08 INR Coag (PPP) [Relative time] 1.1 {INR} Normal [facility] Comment on above: Result Comment: INR Therapeutic [...] TROP, CBC, BMP, BNP, DDIMER, PT, PTT ####[facility] [id number] [id number] [facility] PT Coag (PPP) [Time] 12.6 s Normal 9.0-12.9 [facility] Comment on above: Performed By: #### H S TROP, CBC, BMP, BNP, DDIMER, PT, PTT ####[facility] [id number] [id number] [facility] RBC Auto (Bld) [#/Vol]Ordere d By: Lisha Silva on 12-08-2022 RBC (Bld) [#/Vol] 3.96 10*6/uL 3.90-5.60 [facility] Serum or plasma anion gap de terminationOrdered By: Lisha Silva on 12-08-2022 Anion gap [Moles/Vol] 10.9 mmol/L 6.0-15.0 [facility] Sodium [Moles/volume] in Ser um or PlasmaOrdered By: Lisha Silva on 12-08-2022 Sodium [Moles/Vol] 140 mmol/L 136-145 [facility] Specific gravity Auto test s trip (U) [Rel density]Ordered By: Lisha Silva on 12-08-2022 Specific gravity (U) [Rel density] 1.040 1.001-1.03 0 [facility] Squamous epithelial cells de tection in urine sediment by light microscopyOrdered By: Lisha Silva on 12-08-2022 Epithelial cells.squamous LM Ql (Urine sed) None seen [HPF] 0-2 [facility] Troponin I High Sensitivityo n 12-08-2022 Troponin I High Sensitivity 3.7 pg/mL Normal 0.0-20.0 [facility] Comment on above: Result Comment: PERF ORMED BY:[facility] [place], [place] [phone] MEDICAL DIRECTORNATI LAUREN M.D. Performed By: #### H S TROP, CBC, BMP, BNP, DDIMER, PT, PTT ####[facility] [id number] [place] [address] [facility] Troponin I.cardiac [Mass/vol ume] in Serum or Plasma by Detection limit <= 0.01 ng/Ordered By: Lisha Silva on 12-08-2022 Troponin I.cardiac DL <= 0.01 ng/mL [Mass/Vol] 3.7 pg/mL 0.0-20.0 [facility] Urea nitrogen [Mass/volume] in Serum or PlasmaOrdered By: Lisha Silva on 12-08-2022 Urea nitrogen [Mass/Vol] 11 mg/dL 7-25 [facility] Urine bacteria detection by automated methodOrdered By: Lisha Silva on 12-08-2022 Bacteria Auto Ql (U) None seen None Seen [facility] Urine clarity by refractomet ry automatedOrdered By: Lisha Silva on 12-08-2022 Clarity Refractometry automated (U) Clear Clear [facility] Urine glucose measurement by automated test strip (mass/volume)Ordered By: Lisha Silva on 12-08-2022 Glucose Auto test strip (U) [Mass/Vol] Normal mg/dL Normal [facility] Urine hemoglobin detection b y automated test stripOrdered By: Lisha Silva on 12-08-2022 Hemoglobin Auto test strip Ql (U) Trace Negative [facility] Urine leukocyte esterase det ection by automated test stripOrdered By: Lisha Silva on 12-08-2022 Leukocyte esterase Auto test strip Ql (U) Negative Negative [facility] Urobilinogen Auto test strip (U) [Mass/Vol]Ordered By: Lisha Silva on 12-08-2022 Urobilinogen (U) [Mass/Vol] Normal mg/dL Normal [facility] WBC Auto (Bld) [#/Vol]Ordere d By: Lisha Silva on 12-08-2022 WBC (Bld) [#/Vol] 7.6 10*3/uL 4.1-10.5 [facility] pH Auto test strip (U)Ordere d By: Lisha Silva on 12-08-2022 pH (U) 6.5 [pH] 5.0-9.0 [facility] Alanine aminotransferase [En zymatic activity/volume] in Serum or PlasmaOrdered By: Shant Villegas on 11-21-2022 ALT [Catalytic activity/Vol] 40 U/L 7-52 [facility] Albumin [Mass/volume] in Ser um or Plasma by Bromocresol green (BCG) dye binding methoOrdered By: Shant Villegas on 11-21-2022 Albumin BCG dye [Mass/Vol] 2.3 g/dL 3.5-5.7 [facility] Alkaline phosphatase [Enzyma tic activity/volume] in Serum or PlasmaOrdered By: Shant Villegas on 11-21-2022 ALP [Catalytic activity/Vol] 110 U/L 34-104 [facility] Aspartate aminotransferase [ Enzymatic activity/volume] in Serum or PlasmaOrdered By: Shant Villegas on 11-21-2022 AST [Catalytic activity/Vol] 25 U/L 13-39 [facility] Basophils Auto (Bld) [#/Vol] Ordered By: Evi Gay on 11-21-2022 Basophils (Bld) [#/Vol] 0.1 10*3/uL 0.0-0.2 [facility] Basophils/100 WBC Auto (Bld) Ordered By: Evi Gay on 11-21-2022 Basophils/100 WBC (Bld) 1.4 % . [facility] Bilirubin.total [Mass/volume ] in Serum or PlasmaOrdered By: Shant Villegas on 11-21-2022 Bilirubin [Mass/Vol] 0.4 mg/dL 0.3-1.0 [facility] Calcium [Mass/volume] in Ser um or PlasmaOrdered By: Shant Villegas on 11-21-2022 Calcium [Mass/Vol] 8.1 mg/dL 8.6-10.3 [facility] Carbon dioxide, total [Moles /volume] in Serum or PlasmaOrdered By: Shant Villegas on 11-21-2022 CO2 [Moles/Vol] 31.0 mmol/L 21.0-31.0 [facility] Chloride [Moles/volume] in S thang or PlasmaOrdered By: Shant Villegas on 11-21-2022 Chloride [Moles/Vol] 105 mmol/L 98-107 [facility] Complete Blood Count Auto Di ffon 11-21-2022 Basophils (Bld) [#/Vol] 0.1 10*3/uL Normal 0.0-0.2 [facility] Comment on above: Result Comment: PERF ORMED BY:[facility] [place], [place] [phone] MEDICAL DIRECTORNATI LAUREN M.D. Performed By: #### C BC ####[facility] [place] [address] [facility] Basophils/100 WBC (Bld) 1.4 % Normal . [facility] Comment on above: Performed By: #### C BC ####[address] Eosinophils (Bld) [#/Vol] 0.3 10*3/uL Normal 0.0-0.45 [facility] Comment on above: Performed By: #### C BC ####[address] Eosinophils/100 WBC (Bld) 3.7 % Normal . [facility] Comment on above: Performed By: #### C BC ####[address] Erythrocyte distribution width (RBC) [Ratio] 13.8 % Normal 12.0-14.8 [facility] Comment on above: Performed By: #### C BC ####[address] Hematocrit (Bld) [Volume fraction] 25.0 % Low 38.8-50.0 [facility] Comment on above: Performed By: #### C BC ####[address] Hemoglobin (Bld) [Mass/Vol] 8.4 g/dL Low 13.0-17.0 [facility] Comment on above: Performed By: #### C BC ####[address] Lymphocytes (Bld) [#/Vol] 2.2 10*3/uL Normal 1.00-4.8 [facility] Comment on above: Performed By: #### C BC ####[address] Lymphocytes/100 WBC (Bld) 28.3 % Normal . [facility] Comment on above: Performed By: #### C BC ####[address] MCH (RBC) [Entitic mass] 30.2 pg Normal 27.5-35.2 [facility] Comment on above: Performed By: #### C BC ####[id number] [place] [address] [facility] MCV (RBC) [Entitic vol] 89.8 fL Normal 83.5-101 [facility] Comment on above: Performed By: #### C BC ####[address] [place] [address] [facility] Mean Corpuscular HGB Conc 33.6 g/dL Normal 32.5-35.6 [facility] Comment on above: Performed By: #### C BC ####[address] [address] [facility] Monocytes (Bld) [#/Vol] 0.8 10*3/uL Normal 0.0-0.8 [facility] Comment on above: Performed By: #### C BC ####[address] [id number] [facility] Monocytes/100 WBC (Bld) 10.5 % Normal . [facility] Comment on above: Performed By: #### C BC ####[address] [address] [facility] Neutrophils (Bld) [#/Vol] 4.4 10*3/uL Normal 1.8-7.7 [facility] Comment on above: Performed By: #### C BC ####[address] [address] [facility] Neutrophils/100 WBC (Bld) 56.1 % Normal . [facility] Comment on above: Performed By: #### C BC ####[address] [address] [facility] NRBC% 0.2 /100{WBC} Normal 0-0.5 [facility] Comment on above: Performed By: #### C BC ####[address] [address] [facility] Platelet mean volume (Bld) [Entitic vol] 7.2 fL Normal 6.6-10.1 [facility] Comment on above: Performed By: #### C BC ####[facility] [place] [address] [facility] Platelets (Bld) [#/Vol] 486 10*3/uL High 150-450 [facility] Comment on above: Performed By: #### C BC ####[address] [address] [facility] RBC (Bld) [#/Vol] 2.78 10*6/uL Low 3.90-5.60 [facility] Comment on above: Performed By: #### C BC ####[address] [address] [facility] WBC (Bld) [#/Vol] 7.9 10*3/uL Normal 4.1-10.5 [facility] Comment on above: Performed By: #### C BC ####[address] [address] [facility] Comprehensive Metabolic Pane tiago 11-21-2022 Albumin [Mass/Vol] 2.3 g/dL Low 3.5-5.7 [facility] Comment on above: Performed By: #### C MP, MG ####[address] [address] [facility] Albumin/Globulin [Mass ratio] 0.7 {ratio} Normal [facility] Comment on above: Performed By: #### C MP, MG ####[address] [address] [facility] ALP [Catalytic activity/Vol] 110 U/L High 34-104 [facility] Comment on above: Performed By: #### C MP, MG ####[address] [address] [facility] ALT [Catalytic activity/Vol] 40 U/L Normal 7-52 [facility] Comment on above: Performed By: #### C MP, MG ####[address] [address] [facility] Anion gap [Moles/Vol] 8.7 mmol/L Normal 6.0-15.0 [facility] Comment on above: Performed By: #### C MP, MG ####[facility] [place] [address] [facility] AST [Catalytic activity/Vol] 25 U/L Normal 13-39 [facility] Comment on above: Performed By: #### C MP, MG ####[facility] [place] [address] [facility] Bilirubin [Mass/Vol] 0.4 mg/dL Normal 0.3-1.0 [facility] Comment on above: Performed By: #### C MP, MG ####[facility] [place] [address] [facility] Calcium [Mass/Vol] 8.1 mg/dL Low 8.6-10.3 [facility] Comment on above: Performed By: #### C MP, MG ####[address] [place] [address] [facility] Chloride [Moles/Vol] 105 mmol/L Normal 98-107 [facility] Comment on above: Performed By: #### C MP, MG ####[facility] [place] [address] [facility] CO2 [Moles/Vol] 31.0 mmol/L Normal 21.0-31.0 [facility] Comment on above: Performed By: #### C MP, MG ####[facility] [place] [address] [facility] Creatinine [Mass/Vol] 0.43 mg/dL Low 0.70-1.30 [facility] Comment on above: Performed By: #### C MP, MG ####[facility] [place] [address] [place] [facility] 231.99 [facility] Comment on above: Performed By: #### C MP, MG ####[facility] [place] [address] [place] GFR/1.73 sq M.predicted MDRD (S/P/Bld) [Vol rate/Area] mL/min/{1.73_m2} [facility] Comment on above: Performed By: #### C MP, MG ####[place] [id number] [facility] Globulin (S) [Mass/Vol] 3.4 g/dL Normal [facility] Comment on above: Performed By: #### C MP, MG ####[place] [id number] [facility] Glucose [Mass/Vol] 105 mg/dL High 70-100 [facility] Comment on above: Result Comment: [facility] Glucose Reference Range is dependent on time and content of last meal. Glucose of more than 200 mg/dL in a nonstressed, ambulatory subject supports the diagnosis of Diabetes Mellitus. ADA recommended reference range Performed By: #### C MP, MG ####[place] [id number] [facility] Potassium [Moles/Vol] 3.7 mmol/L Normal 3.5-5.1 [facility] Comment on above: Performed By: #### C MP, MG ####[id number] [facility] Protein [Mass/Vol] 5.7 g/dL Low 6.4-8.9 [facility] Comment on above: Performed By: #### C MP, MG ####[id number] [facility] Sodium [Moles/Vol] 141 mmol/L Normal 136-145 [facility] Comment on above: Performed By: #### C MP, MG ####[id number] [facility] Urea nitrogen [Mass/Vol] 11 mg/dL Normal 7-25 [facility] Comment on above: Performed By: #### C MP, MG ####[place] [id number] [facility] Creatinine [Mass/volume] in Serum or PlasmaOrdered By: Shant Villegas on 11-21-2022 Creatinine [Mass/Vol] 0.43 mg/dL 0.70-1.30 [facility] Eosinophils Auto (Bld) [#/Vo l]Ordered By: Evi Gay on 11-21-2022 Eosinophils (Bld) [#/Vol] 0.3 10*3/uL 0.0-0.45 [facility] Eosinophils/100 WBC Auto (Bl d)Ordered By: Evi Gay on 11-21-2022 Eosinophils/100 WBC (Bld) 3.7 % . [facility] Erythrocyte distribution wid th Auto (RBC) [Ratio]Ordered By: Evi Gay on 11-21-2022 Erythrocyte distribution width (RBC) [Ratio] 13.8 % 12.0-14.8 [facility] Globulin Calc (S) [Mass/Vol] Ordered By: Shant Villegas on 11-21-2022 Globulin (S) [Mass/Vol] 3.4 g/dL [facility] Glucose [Mass/volume] in Ser um or PlasmaOrdered By: Shant Villegas on 11-21-2022 Glucose [Mass/Vol] 105 mg/dL 70-100 [facility] Comment on above: ADA recommended refe rence rangeRandom Glucose Reference Range is dependent on time and content of last meal. Glucose of more than 200 mg/dL in a nonstressed, ambulatory subject supports the diagnosis of Diabetes Mellitus. Hematocrit Auto (Bld) [Volum e fraction]Ordered By: Evi Gay on 11-21-2022 Hematocrit (Bld) [Volume fraction] 25.0 % 38.8-50.0 [facility] Hemoglobin [Mass/volume] in BloodOrdered By: Evi Gay on 11-21-2022 Hemoglobin (Bld) [Mass/Vol] 8.4 g/dL 13.0-17.0 [facility] Leukocytes [#/volume] correc wiliam for nucleated erythrocytes in Blood by Automated counOrdered By: Evi Gay on 11-21-2022 WBC corrected for nucl RBC Auto (Bld) [#/Vol] 7.9 10*3/uL 4.1-10.5 [facility] Lymphocytes Auto (Bld) [#/Vo l]Ordered By: Evi Gay on 11-21-2022 Lymphocytes (Bld) [#/Vol] 2.2 10*3/uL 1.00-4.8 [facility] Lymphocytes/100 WBC Auto (Bl d)Ordered By: Evi Deidra on 11-21-2022 Lymphocytes/100 WBC (Bld) 28.3 % . [facility] MCH Auto (RBC) [Entitic mass ]Ordered By: Evi Deidra on 11-21-2022 MCH (RBC) [Entitic mass] 30.2 pg 27.5-35.2 [facility] MCHC Auto (RBC) [Mass/Vol]Or dered By: Evi Deidra on 11-21-2022 MCHC (RBC) [Mass/Vol] 33.6 g/dL 32.5-35.6 [facility] MCV Auto (RBC) [Entitic vol] Ordered By: Evi Deidra on 11-21-2022 MCV (RBC) [Entitic vol] 89.8 fL 83.5-101 [facility] Magnesiumon 11-21-2022 Magnesium [Mass/Vol] 1.8 mg/dL Low 1.9-2.7 [facility] Comment on above: Result Comment: PERF ORMED BY:[facility] [place] [address] [place], [place] [phone] MEDICAL DIRECTORNATI LAUREN M.D. Performed By: #### C MP, MG ####[facility] [place] [address] [facility] Magnesium [Mass/volume] in S thang or PlasmaOrdered By: Shant Villegas on 11-21-2022 Magnesium [Mass/Vol] 1.8 mg/dL 1.9-2.7 [facility] Monocytes Auto (Bld) [#/Vol] Ordered By: Evi Deidra on 11-21-2022 Monocytes (Bld) [#/Vol] 0.8 10*3/uL 0.0-0.8 [facility] Monocytes/100 WBC Auto (Bld) Ordered By: Evi Deidra on 11-21-2022 Monocytes/100 WBC (Bld) 10.5 % . [facility] Neutrophils Auto (Bld) [#/Vo l]Ordered By: Evi Deidra on 11-21-2022 Neutrophils (Bld) [#/Vol] 4.4 10*3/uL 1.8-7.7 [facility] Neutrophils/100 WBC Auto (Bl d)Ordered By: Evi Gay on 11-21-2022 Neutrophils/100 WBC (Bld) 56.1 % . [facility] No Panel InformationOrdered By: Shant Villegas on 11-21-2022 Estimated GFR (CKD-EPI) > 60.0 mL/Min [facility] Creatinine Clearance (Chem 231.99 [facility] Nucleated erythrocytes [Pres ence] in Blood by Automated countOrdered By: Evi Gay on 11-21-2022 Nucleated RBC Auto Ql (Bld) 0.2 /100{WBC} 0-0.5 [facility] Platelet mean volume Auto (B ld) [Entitic vol]Ordered By: Evi Gay on 11-21-2022 Platelet mean volume (Bld) [Entitic vol] 7.2 fL 6.6-10.1 [facility] Platelets Auto (Bld) [#/Vol] Ordered By: Evi Gay on 11-21-2022 Platelets (Bld) [#/Vol] 486 10*3/uL 150-450 [facility] Potassium [Moles/volume] in Serum or PlasmaOrdered By: Shant Villegas on 11-21-2022 Potassium [Moles/Vol] 3.7 mmol/L 3.5-5.1 [facility] Protein [Mass/volume] in Ser um or PlasmaOrdered By: Shant Villegas on 11-21-2022 Protein [Mass/Vol] 5.7 g/dL 6.4-8.9 [facility] RBC Auto (Bld) [#/Vol]Ordere d By: Evi Gay on 11-21-2022 RBC (Bld) [#/Vol] 2.78 10*6/uL 3.90-5.60 [facility] Serum or plasma albumin/glob ulin mass ratioOrdered By: Shant Villegas on 11-21-2022 Albumin/Globulin [Mass ratio] 0.7 {ratio} [facility] Serum or plasma anion gap de terminationOrdered By: Shant Villegas on 11-21-2022 Anion gap [Moles/Vol] 8.7 mmol/L 6.0-15.0 [facility] Sodium [Moles/volume] in Ser um or PlasmaOrdered By: Shant Villegas on 11-21-2022 Sodium [Moles/Vol] 141 mmol/L 136-145 [facility] Urea nitrogen [Mass/volume] in Serum or PlasmaOrdered By: Shant Villegas on 11-21-2022 Urea nitrogen [Mass/Vol] 11 mg/dL 7-25 [facility] WBC Auto (Bld) [#/Vol]Ordere d By: Evi Gay on 11-21-2022 WBC (Bld) [#/Vol] 7.9 10*3/uL 4.1-10.5 [facility] Complete Blood Count Auto Di ffon 11-20-2022 Basophils (Bld) [#/Vol] 0.1 10*3/uL Normal 0.0-0.2 [facility] Comment on above: Result Comment: PERF ORMED BY:[address] [place], [place] [phone] MEDICAL DIRECTORNATI LAUREN M.D. Performed By: #### C BC ####[address] [id number] [facility] Basophils/100 WBC (Bld) 1.0 % Normal . [facility] Comment on above: Performed By: #### C BC ####[place] [id number] [facility] Eosinophils (Bld) [#/Vol] 0.2 10*3/uL Normal 0.0-0.45 [facility] Comment on above: Performed By: #### C BC ####[id number] [facility] Eosinophils/100 WBC (Bld) 2.2 % Normal . [facility] Comment on above: Performed By: #### C BC ####[place] [id number] [facility] Erythrocyte distribution width (RBC) [Ratio] 13.7 % Normal 12.0-14.8 [facility] Comment on above: Performed By: #### C BC ####[address] Hematocrit (Bld) [Volume fraction] 29.6 % Low 38.8-50.0 [facility] Comment on above: Performed By: #### C BC ####[address] Hemoglobin (Bld) [Mass/Vol] 9.8 g/dL Low 13.0-17.0 [facility] Comment on above: Performed By: #### C BC ####[address] Lymphocytes (Bld) [#/Vol] 1.9 10*3/uL Normal 1.00-4.8 [facility] Comment on above: Performed By: #### C BC ####[address] Lymphocytes/100 WBC (Bld) 18.5 % Normal . [facility] Comment on above: Performed By: #### C BC ####[address] MCH (RBC) [Entitic mass] 29.5 pg Normal 27.5-35.2 [facility] Comment on above: Performed By: #### C BC ####[address] MCV (RBC) [Entitic vol] 89.4 fL Normal 83.5-101 [facility] Comment on above: Performed By: #### C BC ####[address] Mean Corpuscular HGB Conc 33.0 g/dL Normal 32.5-35.6 [facility] Comment on above: Performed By: #### C BC ####[address] Monocytes (Bld) [#/Vol] 1.0 10*3/uL High 0.0-0.8 [facility] Comment on above: Performed By: #### C BC ####[address] [address] [place] Monocytes/100 WBC (Bld) 9.9 % Normal . [facility] Comment on above: Performed By: #### C BC ####[address] Neutrophils (Bld) [#/Vol] 6.9 10*3/uL Normal 1.8-7.7 [facility] Comment on above: Performed By: #### C BC ####[address] Neutrophils/100 WBC (Bld) 68.4 % Normal . [facility] Comment on above: Performed By: #### C BC ####[address] NRBC% 0.1 /100{WBC} Normal 0-0.5 [facility] Comment on above: Performed By: #### C BC ####[address] Platelet mean volume (Bld) [Entitic vol] 7.5 fL Normal 6.6-10.1 [facility] Comment on above: Performed By: #### C BC ####[address] Platelets (Bld) [#/Vol] 434 10*3/uL Normal 150-450 [facility] Comment on above: Performed By: #### C BC ####[address] RBC (Bld) [#/Vol] 3.31 10*6/uL Low 3.90-5.60 [facility] Comment on above: Performed By: #### C BC ####[address] WBC (Bld) [#/Vol] 10.0 10*3/uL Normal 4.1-10.5 [facility] Comment on above: Performed By: #### C BC ####[address] Comprehensive Metabolic Pane tiago 05-14-2023 Albumin [Mass/Vol] 2.4 g/dL Low 3.5-5.7 [facility] Comment on above: Performed By: #### C MP, MG ####[address] Albumin/Globulin [Mass ratio] 0.7 {ratio} Normal [facility] Comment on above: Performed By: #### C MP, MG ####[address] ALP [Catalytic activity/Vol] 118 U/L High 34-104 [facility] Comment on above: Performed By: #### C MP, MG ####[address] ALT [Catalytic activity/Vol] 47 U/L Normal 7-52 [facility] Comment on above: Performed By: #### C MP, MG ####[address] Anion gap [Moles/Vol] 10.6 mmol/L Normal 6.0-15.0 [facility] Comment on above: Performed By: #### C MP, MG ####[address] AST [Catalytic activity/Vol] 21 U/L Normal 13-39 [facility] Comment on above: Performed By: #### C MP, MG ####[place] [id number] [facility] Bilirubin [Mass/Vol] 0.6 mg/dL Normal 0.3-1.0 [facility] Comment on above: Performed By: #### C MP, MG ####[place] [id number] [facility] Calcium [Mass/Vol] 8.2 mg/dL Low 8.6-10.3 [facility] Comment on above: Performed By: #### C MP, MG ####[address] Chloride [Moles/Vol] 100 mmol/L Normal 98-107 [facility] Comment on above: Performed By: #### C MP, MG ####[place] [id number] CO2 [Moles/Vol] 31.8 mmol/L High 21.0-31.0 [facility] Comment on above: Performed By: #### C MP, MG ####[address] Creatinine [Mass/Vol] 0.35 mg/dL Low 0.70-1.30 [facility] Comment on above: Performed By: #### C MP, MG ####[address] Creatinine Clr Calc Pharmacy 285.02 [facility] Comment on above: Performed By: #### C MP, MG ####[address] GFR/1.73 sq M.predicted MDRD (S/P/Bld) [Vol rate/Area] mL/min/{1.73_m2} [facility] Comment on above: Performed By: #### C MP, MG ####[address] Globulin (S) [Mass/Vol] 3.6 g/dL [facility] Comment on above: Performed By: #### C MP, MG ####[address] Glucose [Mass/Vol] 89 mg/dL Normal 70-100 [facility] Comment on above: Result Comment: [place] Glucose Reference Range is dependent on time and content of last meal. Glucose of more than 200 mg/dL in a nonstressed, ambulatory subject supports the diagnosis of Diabetes Mellitus. ADA recommended reference range Performed By: #### C MP, MG ####[address] Potassium [Moles/Vol] 3.4 mmol/L Low 3.5-5.1 [facility] Comment on above: Performed By: #### C MP, MG ####[id number] [place] [address] [facility] Protein [Mass/Vol] 6.0 g/dL Low 6.4-8.9 [facility] Comment on above: Performed By: #### C MP, MG ####[address] [address] [facility] Sodium [Moles/Vol] 139 mmol/L Normal 136-145 [facility] Comment on above: Performed By: #### C MP, MG ####[address] [address] [facility] Urea nitrogen [Mass/Vol] 13 mg/dL Normal 7-25 [facility] Comment on above: Performed By: #### C MP, MG ####[address] [address] [facility] Magnesiumon 11-20-2022 Magnesium [Mass/Vol] 1.8 mg/dL Low 1.9-2.7 [facility] Comment on above: Result Comment: PERF ORMED BY:[address] [address] [place], [place] [phone] MEDICAL DIRECTORNATI LAUREN M.D. Performed By: #### C MP, MG ####[address] [address] [facility] XR chest 2V*on 11-20-2022 XR chest 2V* Normal [facility] Complete Blood Count Auto Di ffon 11-19-2022 Basophils (Bld) [#/Vol] 0.1 10*3/uL Normal 0.0-0.2 [facility] Comment on above: Result Comment: PERF ORMED BY:[address] [address] [address] [place] [phone] MEDICAL ALEKSANDAR LAUREN M.D. Performed By: #### C BC ####[address] [address] [facility] Basophils/100 WBC (Bld) 1.2 % Normal . [facility] Comment on above: Performed By: #### C BC ####[place] [id number] [facility] Eosinophils (Bld) [#/Vol] 0.2 10*3/uL Normal 0.0-0.45 [facility] Comment on above: Performed By: #### C BC ####[place] [id number] [facility] Eosinophils/100 WBC (Bld) 2.0 % Normal . [facility] Comment on above: Performed By: #### C BC ####[place] [id number] [facility] Erythrocyte distribution width (RBC) [Ratio] 13.7 % Normal 12.0-14.8 [facility] Comment on above: Performed By: #### C BC ####[place] [id number] [facility] Hematocrit (Bld) [Volume fraction] 26.0 % Low 38.8-50.0 [facility] Comment on above: Performed By: #### C BC ####[place] [id number] [facility] Hemoglobin (Bld) [Mass/Vol] 8.6 g/dL Low 13.0-17.0 [facility] Comment on above: Performed By: #### C BC ####[place] [id number] [facility] Lymphocytes (Bld) [#/Vol] 2.0 10*3/uL Normal 1.00-4.8 [facility] Comment on above: Performed By: #### C BC ####[place] [id number] [facility] Lymphocytes/100 WBC (Bld) 16.7 % Normal . [facility] Comment on above: Performed By: #### C BC ####[place] [id number] [facility] MCH (RBC) [Entitic mass] 29.3 pg Normal 27.5-35.2 [facility] Comment on above: Performed By: #### C BC ####[address] [address] [facility] MCV (RBC) [Entitic vol] 89.0 fL Normal 83.5-101 [facility] Comment on above: Performed By: #### C BC ####[place] [id number] [facility] Mean Corpuscular HGB Conc 32.9 g/dL Normal 32.5-35.6 [facility] Comment on above: Performed By: #### C BC ####[place] [id number] [facility] Monocytes (Bld) [#/Vol] 1.1 10*3/uL High 0.0-0.8 [facility] Comment on above: Performed By: #### C BC ####[place] [id number] [facility] Monocytes/100 WBC (Bld) 9.6 % Normal . [facility] Comment on above: Performed By: #### C BC ####[place] [id number] [facility] Neutrophils (Bld) [#/Vol] 8.3 10*3/uL High 1.8-7.7 [facility] Comment on above: Performed By: #### C BC ####[place] [id number] [facility] Neutrophils/100 WBC (Bld) 70.5 % Normal . [facility] Comment on above: Performed By: #### C BC ####[place] [id number] [facility] NRBC% 0.1 /100{WBC} Normal 0-0.5 [facility] Comment on above: Performed By: #### C BC ####[place] [id number] [facility] Platelet mean volume (Bld) [Entitic vol] 7.6 fL Normal 6.6-10.1 [facility] Comment on above: Performed By: #### C BC ####[place] [id number] [facility] Platelets (Bld) [#/Vol] 451 10*3/uL High 150-450 [facility] Comment on above: Performed By: #### C BC ####[place] [address] [place] [address] [facility] RBC (Bld) [#/Vol] 2.92 10*6/uL Low 3.90-5.60 [facility] Comment on above: Performed By: #### C BC ####[address] [address] [facility] WBC (Bld) [#/Vol] 11.8 10*3/uL High 4.1-10.5 [facility] Comment on above: Performed By: #### C BC ####[address] [address] [facility] Comprehensive Metabolic Pane tiago 11-19-2022 Albumin [Mass/Vol] 2.3 g/dL Low 3.5-5.7 [facility] Comment on above: Performed By: #### M Royal, CMP ####[address] [address] [facility] Albumin/Globulin [Mass ratio] 0.7 {ratio} Normal [facility] Comment on above: Performed By: #### Jayesh Paige, CMP ####[address] [address] [facility] ALP [Catalytic activity/Vol] 139 U/L High 34-104 [facility] Comment on above: Performed By: #### Jayesh Paige, CMP ####[address] [address] [facility] ALT [Catalytic activity/Vol] 59 U/L High 7-52 [facility] Comment on above: Performed By: #### M Royal, CMP ####[address] [address] [facility] Anion gap [Moles/Vol] 9.2 mmol/L Normal 6.0-15.0 [facility] Comment on above: Performed By: #### Jayesh Paige, CMP ####[place] [id number] [facility] AST [Catalytic activity/Vol] 28 U/L Normal 13-39 [facility] Comment on above: Performed By: #### Jayesh Paige, CMP ####[place] [id number] [facility] Bilirubin [Mass/Vol] 0.7 mg/dL Normal 0.3-1.0 [facility] Comment on above: Performed By: #### Jayesh Paige, CMP ####[address] Calcium [Mass/Vol] 8.0 mg/dL Low 8.6-10.3 [facility] Comment on above: Performed By: #### Jayesh Paige, CMP ####[address] Chloride [Moles/Vol] 99 mmol/L Normal 98-107 [facility] Comment on above: Performed By: #### Jayesh Paige, CMP ####[address] CO2 [Moles/Vol] 34.0 mmol/L High 21.0-31.0 [facility] Comment on above: Performed By: #### Jayesh Paige, CMP ####[address] Creatinine [Mass/Vol] 0.38 mg/dL Low 0.70-1.30 [facility] Comment on above: Performed By: #### Jayesh Paige, CMP ####[place] [id number] [facility] Creatinine Clr Calc Pharmacy 284.27 [facility] Comment on above: Performed By: #### Jayesh Paige, CMP ####[place] [id number] [facility] GFR/1.73 sq M.predicted MDRD (S/P/Bld) [Vol rate/Area] mL/min/{1.73_m2} [facility] Comment on above: Performed By: #### Jayesh Paige, CMP ####[address] Globulin (S) [Mass/Vol] 3.5 g/dL Normal [facility] Comment on above: Performed By: #### M Royal, CMP ####[place] [address] [place] [address] [facility] Glucose [Mass/Vol] 92 mg/dL Normal 70-100 [facility] Comment on above: Result Comment: [place] Glucose Reference Range is dependent on time and content of last meal. Glucose of more than 200 mg/dL in a nonstressed, ambulatory subject supports the diagnosis of Diabetes Mellitus. ADA recommended reference range Performed By: #### M Royal, CMP ####[place] [address] [place] [address] [facility] Potassium [Moles/Vol] 3.2 mmol/L Low 3.5-5.1 [facility] Comment on above: Performed By: #### Jayesh Paige, CMP ####[address] [address] [facility] Protein [Mass/Vol] 5.8 g/dL Low 6.4-8.9 [facility] Comment on above: Performed By: #### Jayesh Paige, CMP ####[address] [address] [facility] Sodium [Moles/Vol] 139 mmol/L Normal 136-145 [facility] Comment on above: Performed By: #### Jayesh Paige, CMP ####[place] [place] [address] [facility] Urea nitrogen [Mass/Vol] 11 mg/dL Normal 7-25 [facility] Comment on above: Performed By: #### M G, CMP ####[address] [address] [facility] Magnesiumon 11-19-2022 Magnesium [Mass/Vol] 1.8 mg/dL Low 1.9-2.7 [facility] Comment on above: Result Comment: PERF ORMED BY:[address] [place], [place] [phone] MEDICAL DIRECTORNATI LAUREN M.D. Performed By: #### M G, CMP ####[facility] [id number] [place] [address] [facility] Arterial Blood Gason 023 ABG Base Excess 7.9 mmol/L High -3.0-3.0 [facility] Comment on above: Performed By: #### A BG ####Point of Care testing, ABG Frac Inspired O2 40 % [facility] Comment on above: Performed By: #### A BG ####Point of Care testing, ABG Oxygen Content 7.1 mmol/L Normal 6.6-9.7 [facility] Comment on above: Performed By: #### A BG ####Point of Care testing, ABG Oxygen Saturation 95.6 % Normal 95.0-100.0 [facility] Comment on above: Performed By: #### A BG ####Point of Care testing, ABG PCO2 43.5 mm[Hg] Normal 35.0-45.0 [facility] Comment on above: Performed By: #### A BG ####Point of Care testing, ABG PEEP 6 [facility] Comment on above: Performed By: #### A BG ####Point of Care testing, ABG PH 7.49 High 7.35-7.45 [facility] Comment on above: Performed By: #### A BG ####Point of Care testing, ABG PO2 78.1 mm[Hg] Low 80.0-100.0 [facility] Comment on above: Performed By: #### A BG ####Point of Care testing, ABG TV 500 mL [facility] Comment on above: Performed By: #### A BG ####Point of Care testing, CO2 [Moles/Vol] 33.5 mmol/L High 23.0-27.0 [facility] Comment on above: Performed By: #### A BG ####Point of Care testing, HCO3 (Bld) [Moles/Vol] 32.2 mmol/L High 23.0-29.0 [facility] Comment on above: Performed By: #### A BG ####Point of Care testing, Respiratory Critical [facility] Comment on above: Result Comment: Crit ical Value called on: 11/18/2022 at 05:43PERFORMED BY:[id number] [place], [place] [phone] MEDICAL DIRECTORNATI LAUREN M.D. Performed By: #### A BG ####Point of Care testing, Set Respiratory Rate 20 [facility] Comment on above: Performed By: #### A BG ####Point of Care testing, VBG Draw Site Right Radial [facility] Comment on above: Performed By: #### A BG ####Point of Care testing, Ventilator Mode AC [facility] Comment on above: Performed By: #### A BG ####Point of Care testing, Comprehensive Metabolic Pane tiago 11-18-2022 Albumin [Mass/Vol] 2.3 g/dL Low 3.5-5.7 [facility] Comment on above: Performed By: #### T RIG, SCAN CBC, MG, CMP ####[facility] [id number] [place] [id number] [facility] Albumin/Globulin [Mass ratio] 0.6 {ratio} [facility] Comment on above: Performed By: #### T RIG, SCAN CBC, MG, CMP ####[facility] [id number] [place] [address] [facility] ALP [Catalytic activity/Vol] 169 U/L High 34-104 [facility] Comment on above: Performed By: #### T RIG, SCAN CBC, MG, CMP ####[facility] [id number] [place] [address] [facility] ALT [Catalytic activity/Vol] 81 U/L High 7-52 [facility] Comment on above: Performed By: #### T RIG, SCAN CBC, MG, CMP ####[facility] [id number] [place] [address] [facility] Anion gap [Moles/Vol] 8.2 mmol/L Normal 6.0-15.0 [facility] Comment on above: Performed By: #### T RIG, SCAN CBC, MG, CMP ####[place] [id number] [place] [id number] [facility] AST [Catalytic activity/Vol] 53 U/L High 13-39 [facility] Comment on above: Performed By: #### T RIG, SCAN CBC, MG, CMP ####[facility] [id number] [place] [id number] [facility] Bilirubin [Mass/Vol] 0.5 mg/dL Normal 0.3-1.0 [facility] Comment on above: Performed By: #### T RIG, SCAN CBC, MG, CMP ####[place] [id number] [facility] Calcium [Mass/Vol] 7.9 mg/dL Low 8.6-10.3 [facility] Comment on above: Performed By: #### T RIG, SCAN CBC, MG, CMP ####[place] [id number] [facility] Chloride [Moles/Vol] 95 mmol/L Low 98-107 [facility] Comment on above: Performed By: #### T RIG, SCAN CBC, MG, CMP ####[place] [id number] [facility] CO2 [Moles/Vol] 34.3 mmol/L High 21.0-31.0 [facility] Comment on above: Performed By: #### T RIG, SCAN CBC, MG, CMP ####[place] [id number] [facility] Creatinine [Mass/Vol] 0.39 mg/dL Low 0.70-1.30 [facility] Comment on above: Performed By: #### T RIG, SCAN CBC, MG, CMP ####[place] [id number] [facility] Creatinine Clr Calc Pharmacy 276.98 [facility] Comment on above: Performed By: #### T RIG, SCAN CBC, MG, CMP ####[place] [id number] [facility] GFR/1.73 sq M.predicted MDRD (S/P/Bld) [Vol rate/Area] mL/min/{1.73_m2} Normal [facility] Comment on above: Performed By: #### T RIG, SCAN CBC, MG, CMP ####[address] Globulin (S) [Mass/Vol] 3.6 g/dL Normal [facility] Comment on above: Performed By: #### T RIG, SCAN CBC, MG, CMP ####[address] Glucose [Mass/Vol] 115 mg/dL High 70-100 [facility] Comment on above: Result Comment: [facility] Glucose Reference Range is dependent on time and content of last meal. Glucose of more than 200 mg/dL in a nonstressed, ambulatory subject supports the diagnosis of Diabetes Mellitus. ADA recommended reference range Performed By: #### T RIG, SCAN CBC, MG, CMP ####[address] Potassium [Moles/Vol] 3.5 mmol/L Normal 3.5-5.1 [facility] Comment on above: Performed By: #### T RIG, SCAN CBC, MG, CMP ####[address] Protein [Mass/Vol] 5.9 g/dL Low 6.4-8.9 [facility] Comment on above: Performed By: #### T RIG, SCAN CBC, MG, CMP ####[place] [id number] [facility] Sodium [Moles/Vol] 134 mmol/L Low 136-145 [facility] Comment on above: Performed By: #### T RIG, SCAN CBC, MG, CMP ####[address] Urea nitrogen [Mass/Vol] 15 mg/dL Normal 7-25 [facility] Comment on above: Performed By: #### T RIG, SCAN CBC, MG, CMP ####[address] Glucose Glucometer (BldC) [M ass/Vol]Ordered By: Shant Villegas on 11-18-2022 Glucose [Mass/Vol] 120 mg/dL [facility] Comment on above: Random Glucose Refer ence Range is dependent on time and content of last meal. Glucose of more than 200 mg/dL in a nonstressed, ambulatory subject supports the diagnosis of Diabetes Mellitus. Glucose Poct Glucometerson 0 11-18-2022 Glucose [Mass/Vol] 120 mg/dL Normal [facility] Comment on above: Result Comment: [place] om Glucose Reference Range is dependent on time and content of last meal. Glucose of more than 200 mg/dL in a nonstressed, ambulatory subject supports the diagnosis of Diabetes Mellitus.PERFORMED BY:[facility] [place], [place] [phone] MEDICAL DIRECTORNATI LAUREN M.D. Performed By: #### G LULS ####Point of Care testing, Hypochromia LM Ql (Bld)Order ed By: Evi Gay on 11-18-2022 Hypochromia Ql (Bld) Moderate [facility] - Chemistry and C hemistry - challengeOrdered By: Shant Villegas on 11-18-2022 CO2 [Moles/Vol] 33.5 mmol/L 23.0-27.0 [facility] HCO3 (Bld) [Moles/Vol] 32.2 mmol/L 23.0-29.0 [facility] Magnesiumon 11-18-2022 Magnesium [Mass/Vol] 1.9 mg/dL Normal 1.9-2.7 [facility] Comment on above: Performed By: #### T RIG, SCAN CBC, MG, CMP ####[facility] [id number] [place] [address] [facility] No Panel InformationOrdered By: Shant Villegas on 11-18-2022 Arterial Blood Base Excess 7.9 mmol/L -3.0-3.0 [facility] Arterial Blood Oxygen Content 7.1 mmol/L 6.6-9.7 [facility] Arterial Blood Oxygen Saturation 95.6 % 95.0-100.0 [facility] Arterial Blood Partial Pressure CO2 43.5 mm[Hg] 35.0-45.0 [facility] Arterial Blood Partial Pressure O2 78.1 mm[Hg] 80.0-100.0 [facility] Arterial Blood pH 7.49 7.35-7.45 [facility] Blood Gas Critical Value See comment [facility] Comment on above: Critical Value abdi d on: 11/18/2022 at 05:43 Blood Gas PEEP 6 cmH2O [facility] Blood Gas Sample Site Right radial F [facility] Blood Gas Set Respiration Rate 20 [facility] Blood Gas Tidal Volume 500 mL Fi [facility] Blood Gas Ventilator Mode Ac [facility] FiO2 40 % [facility] Platelet adequacy [Presence] in Blood by Light microscopyOrdered By: Evi Gay on 11-18-2022 Platelets LM Ql (Bld) Normal Normal [facility] Platelet morphology finding [Identifier] in BloodOrdered By: Evi Gay on 11-18-2022 Platelet morphology finding Nom (Bld) Normal Normal [facility] Poikilocytosis [Presence] in Blood by Light microscopyOrdered By: Evi Gay on 11-18-2022 Poikilocytosis LM Ql (Bld) Slight [facility] Polychromasia [Presence] in Blood by Light microscopyOrdered By: Evi Gay on 11-18-2022 Polychromasia LM Ql (Bld) Moderate [facility] RBC morphologyOrdered By: Antoni Gay on 11-18-2022 RBC morphology finding Nom (Bld) N/A [facility] Scan and CBCon 11-18-2022 Basophils (Bld) [#/Vol] 0.1 10*3/uL Normal 0.0-0.2 [facility] Comment on above: Performed By: #### T RIG, SCAN CBC, MG, CMP ####[facility] [id number] [place] [id number] [facility] Basophils/100 WBC (Bld) 0.7 % Normal . [facility] Comment on above: Performed By: #### T RIG, SCAN CBC, MG, CMP ####[address] Eosinophils (Bld) [#/Vol] 0.2 10*3/uL Normal 0.0-0.45 [facility] Comment on above: Performed By: #### T RIG, SCAN CBC, MG, CMP ####[address] Eosinophils/100 WBC (Bld) 1.6 % Normal . [facility] Comment on above: Performed By: #### T RIG, SCAN CBC, MG, CMP ####[address] Erythrocyte distribution width (RBC) [Ratio] 13.8 % Normal 12.0-14.8 [facility] Comment on above: Performed By: #### T RIG, SCAN CBC, MG, CMP ####[address] Hematocrit (Bld) [Volume fraction] 25.8 % Low 38.8-50.0 [facility] Comment on above: Performed By: #### T RIG, SCAN CBC, MG, CMP ####[address] Hemoglobin (Bld) [Mass/Vol] 8.6 g/dL Low 13.0-17.0 [facility] Comment on above: Performed By: #### T RIG, SCAN CBC, MG, CMP ####[address] Hypochromasia Moderate Normal [facility] Comment on above: Performed By: #### T RIG, SCAN CBC, MG, CMP ####[address] Lymphocytes (Bld) [#/Vol] 1.6 10*3/uL Normal 1.00-4.8 [facility] Comment on above: Performed By: #### T RIG, SCAN CBC, MG, CMP ####[address] Lymphocytes/100 WBC (Bld) 11.6 % Normal . [facility] Comment on above: Performed By: #### T RIG, SCAN CBC, MG, CMP ####[address] MCH (RBC) [Entitic mass] 29.6 pg Normal 27.5-35.2 [facility] Comment on above: Performed By: #### T RIG, SCAN CBC, MG, CMP ####[address] MCV (RBC) [Entitic vol] 89.0 fL Normal 83.5-101 [facility] Comment on above: Performed By: #### T RIG, SCAN CBC, MG, CMP ####[address] Mean Corpuscular HGB Conc 33.3 g/dL Normal 32.5-35.6 [facility] Comment on above: Performed By: #### T RIG, SCAN CBC, MG, CMP ####[address] Monocytes (Bld) [#/Vol] 1.7 10*3/uL High 0.0-0.8 [facility] Comment on above: Performed By: #### T RIG, SCAN CBC, MG, CMP ####[address] Monocytes/100 WBC (Bld) 12.5 % Normal . [facility] Comment on above: Performed By: #### T RIG, SCAN CBC, MG, CMP ####[address] Neutrophils (Bld) [#/Vol] 10.1 10*3/uL High 1.8-7.7 [facility] Comment on above: Performed By: #### T RIG, SCAN CBC, MG, CMP ####[address] Neutrophils/100 WBC (Bld) 73.6 % Normal . [facility] Comment on above: Performed By: #### T RIG, SCAN CBC, MG, CMP ####[place] [address] NRBC% 0.1 /100{WBC} Normal 0-0.5 [facility] Comment on above: Performed By: #### T RIG, SCAN CBC, MG, CMP ####[address] Platelet Estimate Normal Normal Normal [facility] Comment on above: Performed By: #### T RIG, SCAN CBC, MG, CMP ####[address] Platelet mean volume (Bld) [Entitic vol] 7.7 fL Normal 6.6-10.1 [facility] Comment on above: Performed By: #### T RIG, SCAN CBC, MG, CMP ####[address] Platelet Morphology Normal Normal Normal [facility] Comment on above: Result Comment: PERF ORMED BY:[address] [place], [place] [id number] MEDICAL DIRECTORNATI LAUREN M.D. Performed By: #### T RIG, SCAN CBC, MG, CMP ####[address] Platelets (Bld) [#/Vol] 418 10*3/uL Normal 150-450 [facility] Comment on above: Performed By: #### T RIG, SCAN CBC, MG, CMP ####[address] Poikilocytosis Slight Normal [facility] Comment on above: Performed By: #### T RIG, SCAN CBC, MG, CMP ####[address] Polychromasia Moderate Normal [facility] Comment on above: Performed By: #### T RIG, SCAN CBC, MG, CMP ####[address] RBC (Bld) [#/Vol] 2.90 10*6/uL Low 3.90-5.60 [facility] Comment on above: Performed By: #### T RIG, SCAN CBC, MG, CMP ####[place] [address] WBC (Bld) [#/Vol] 13.7 10*3/uL High 4.1-10.5 [facility] Comment on above: Performed By: #### T RIG, SCAN CBC, MG, CMP ####[place] [id number] [facility] Triglyceride [Mass/volume] i n Serum or PlasmaOrdered By: Evi Gay on 11-18-2022 Triglyceride [Mass/Vol] 146 mg/dL 0-149 [facility] Comment on above: TRIG ATP III CLASSIF ICATIONTRIG less than 150 mg/dL NormalTRIG 150-199 mg/dL Borderline highTRIG 200-500 mg/dL High TRIG greater than 500 mg/dL Very highStandard traceable to the Center for Disease Conrtrol and Prevention (CDC) test method. Triglycerideson 11-18-2022 Triglyceride [Mass/Vol] 146 mg/dL Normal 0-149 [facility] Comment on above: Result Comment: TRIG ATP III CLASSIFICATION TRIG less than 150 mg/dL Normal TRIG 150-199 mg/dL Borderline high TRIG 200-500 mg/dL High TRIG greater than 500 mg/dL Very high Standard traceable to the Center for Disease Conrtrol and Prevention (CDC) test method.PERFORMED BY:[address] [place], [place] [phone] MEDICAL DIRECTORNATI LAUREN M.D. Performed By: #### T RIG, SCAN CBC, MG, CMP ####[place] [address] [place] [id number] [facility] XR chest 1V portableon 11-18 XR chest 1V portable Normal [facility] Aerobic Cultureon 11-17-2022 Aerobic Culture Normal [facility] Comment on above: Performed By: #### G S, AERC ####[place] [id number] [facility] Amylaseon 11-17-2022 Amylase [Catalytic activity/Vol] 16 U/L Low 29-103 [facility] Comment on above: Order Comment: Comme nt please run off blood drawn this morning Performed By: #### L IPA, CATRACHITO, HEPATIC ####[facility] [id number] [place] [address] [facility] Amylase [Enzymatic activity/ volume] in Serum or PlasmaOrdered By: Evi Gay on 11-17-2022 Amylase [Catalytic activity/Vol] 16 U/L 103 [facility] Arterial Blood Gason 023 ABG Base Excess 9.9 mmol/L High -3.0-3.0 [facility] Comment on above: Performed By: #### A BG ####Point of Care testing, ABG Frac Inspired O2 30 % [facility] Comment on above: Performed By: #### A BG ####Point of Care testing, ABG Oxygen Content 5.9 mmol/L Low 6.6-9.7 [facility] Comment on above: Performed By: #### A BG ####Point of Care testing, ABG Oxygen Saturation 89.2 % Low 95.0-100.0 [facility] Comment on above: Performed By: #### A BG ####Point of Care testing, ABG PCO2 42.2 mm[Hg] Normal 35.0-45.0 [facility] Comment on above: Performed By: #### A BG ####Point of Care testing, ABG PEEP 10 [facility] Comment on above: Performed By: #### A BG ####Point of Care testing, ABG PH 7.52 High 7.35-7.45 [facility] Comment on above: Performed By: #### A BG ####Point of Care testing, ABG PO2 54.5 mm[Hg] Low 80.0-100.0 [facility] Comment on above: Performed By: #### A BG ####Point of Care testing, ABG TV 500 mL [facility] Comment on above: Performed By: #### A BG ####Point of Care testing, CO2 [Moles/Vol] 35.0 mmol/L High 23.0-27.0 [facility] Comment on above: Performed By: #### A BG ####Point of Care testing, HCO3 (Bld) [Moles/Vol] 33.7 mmol/L High 23.0-29.0 [facility] Comment on above: Performed By: #### A BG ####Point of Care testing, Respiratory Critical [facility] Comment on above: Result Comment: Crit ical Value called on: 11/17/2022 at 04:38PERFORMED BY:[facility] [place], [place] [phone] MEDICAL DIRECTORNATI LAUREN M.D. Performed By: #### A BG ####Point of Care testing, Set Respiratory Rate 20 [facility] Comment on above: Performed By: #### A BG ####Point of Care testing, VBG Draw Site Right Radial [facility] Comment on above: Performed By: #### A BG ####Point of Care testing, Ventilator Mode AC [facility] Comment on above: Performed By: #### A BG ####Point of Care testing, Bacteria identified Aer cx N om (Unsp spec)Ordered By: Sanjay Holt on 11-17-2022 Aerobic Culture Corynebacterium stri atum group [facility] Bacterial blood cultureOrder ed By: Sanjay Holt on 11-17-2022 Bacteria identified Cx Nom (Bld) NO GROWTH 5 DAYS [facility] Basic Metabolic Panelon 11-07 Anion gap [Moles/Vol] 9.3 mmol/L Normal 6.0-15.0 [facility] Comment on above: Performed By: #### B MP, CBCNO ####[facility] [address] [place] [address] [facility] Calcium [Mass/Vol] 7.8 mg/dL Low 8.6-10.3 [facility] Comment on above: Performed By: #### B MP, CBCNO ####[facility] [id number] [place] [address] [place] Chloride [Moles/Vol] 93 mmol/L Low 98-107 [facility] Comment on above: Performed By: #### B YOSEPH, CBCNO ####[facility] [place] [address] [facility] CO2 [Moles/Vol] 33.7 mmol/L High 21.0-31.0 [facility] Comment on above: Performed By: #### B YOSEPH, CBCNO ####[place] [address] [place] [address] [facility] Creatinine [Mass/Vol] 0.50 mg/dL Low 0.70-1.30 [facility] Comment on above: Performed By: #### B YOSEPH, CBCNO ####[place] [address] [place] [address] [place] Creatinine Clr Calc Pharmacy 217.84 [facility] Comment on above: Result Comment: PERF ORMED BY:[address] [place], [place] [phone] MEDICAL ALEKSANDAR LAUREN M.D. Performed By: #### B YOSEPH, CBCNO ####[place] [address] [place] [address] [place] GFR/1.73 sq M.predicted MDRD (S/P/Bld) [Vol rate/Area] mL/min/{1.73_m2} [facility] Comment on above: Performed By: #### B YOSEPH, CBCNO ####[place] [address] [place] [address] [facility] Glucose [Mass/Vol] 102 mg/dL High 70-100 [facility] Comment on above: Result Comment: [place] Glucose Reference Range is dependent on time and content of last meal. Glucose of more than 200 mg/dL in a nonstressed, ambulatory subject supports the diagnosis of Diabetes Mellitus. ADA recommended reference range Performed By: #### B MP, CBCNO ####[facility] [place] [address] [facility] Potassium [Moles/Vol] 4.0 mmol/L Normal 3.5-5.1 [facility] Comment on above: Performed By: #### B MP, CBCNO ####[place] [address] [place] [id number] [facility] Sodium [Moles/Vol] 132 mmol/L Low 136-145 [facility] Comment on above: Performed By: #### B YOSEPH, CBCNO ####[facility] [place] [id number] [facility] Urea nitrogen [Mass/Vol] 23 mg/dL Normal 7-25 [facility] Comment on above: Performed By: #### B YOSEPH CBCNO ####[place] [address] [place] [id number] [facility] Bilirubin.direct [Mass/volum e] in Serum or PlasmaOrdered By: Evi Gay on 11-17-2022 Bilirubin.direct [Mass/Vol] 0.30 mg/dL 0.03-0.18 [facility] Blood Cultureon 11-17-2022 Bacteria identified Cx Nom (Bld) Comment suctioned NO GROWTH 5 DAYS PERFORMED BY: [facility] [address] [place] [place] [address] PATHOLOGIST SALES FLOOR TEAM LEADER NATI LAUREN M.D. [facility] Comment on above: Performed By: #### C UBLD ####[place] [id number] [facility] Creatine Kinaseon 11-17-2022 CK [Catalytic activity/Vol] 70 U/L Normal [facility] Comment on above: Order Comment: Comme nt has CVC LINE DRAW Performed By: #### H S TROP, CK ####[place] [id number] [facility] Creatine kinase [Enzymatic a ctivity/volume] in Serum or PlasmaOrdered By: Evi Gay on 11-17-2022 CK [Catalytic activity/Vol] 70 U/L 30-223 [facility] ECG 12 lead ECGon 11-17-2022 ECG 12 lead ECG Normal [facility] ECG 12 lead ECG Normal [facility] ECH echo transthoracicon ECH echo transthoracic Normal [facility] Glucose Poct Glucometerson 0 11-17-2022 Commemt1 Glu2: Cleaned Meter Normal [facility] Comment on above: Result Comment: PERF ORMED BY:[facility] [place], [place] [phone] MEDICAL DIRECTORNATI LAUREN M.D. Performed By: #### G LULS ####Point of Care testing, Glucose [Mass/Vol] 106 mg/dL Normal [facility] Comment on above: Result Comment: [facility] Glucose Reference Range is dependent on time [...] Blood Cells Rare Epithelial Cells PERFORMED BY: [facility] [address] [place] [address] PATHOLOGIST SALES FLOOR TEAM LEADER NATI LAUREN M.D. [facility] Comment on above: Performed By: #### G S, AERC ####[place] [id number] [facility] Gram stain for investigation of transfusion reactionOrdered By: Sanjay Holt on 11-17-2022 Microscopic observation Gram stain Nom (Unsp spec) [facility] Hemogram CBC Without Diffon 11-17-2022 Erythrocyte distribution width (RBC) [Ratio] 13.7 % Normal 12.0-14.8 [facility] Comment on above: Performed By: #### B MP, CBCNO ####[facility] [address] [place] [address] [facility] Hematocrit (Bld) [Volume fraction] 28.0 % Low 38.8-50.0 [facility] Comment on above: Performed By: #### B MP, CBCNO ####[facility] [address] [place] [address] [facility] Hemoglobin (Bld) [Mass/Vol] 9.1 g/dL Low 13.0-17.0 [facility] Comment on above: Performed By: #### B MP, CBCNO ####[place] [address] [place] [address] [facility] MCH (RBC) [Entitic mass] 29.1 pg Normal 27.5-35.2 [facility] Comment on above: Performed By: #### B YOSEPH, CBCNO ####[place] [address] [place] [address] [facility] MCV (RBC) [Entitic vol] 89.7 fL Normal 83.5-101 [facility] Comment on above: Performed By: #### B YOSEPH, CBCNO ####[place] [address] [place] [address] [facility] Mean Corpuscular HGB Conc 32.4 g/dL Low 32.5-35.6 [facility] Comment on above: Performed By: #### B YOSEPH, CBCNO ####[address] [address] [facility] Platelet mean volume (Bld) [Entitic vol] 7.7 fL Normal 6.6-10.1 [facility] Comment on above: Result Comment: PERF ORMED BY:[address] [place], [place] [phone] MEDICAL DIRECTORNATI LAUREN M.D. Performed By: #### B YOSEPH, CBCNO ####[address] [address] [facility] Platelets (Bld) [#/Vol] 423 10*3/uL Normal 150-450 [facility] Comment on above: Performed By: #### B YOSEPH, CBCNO ####[address] [address] [facility] RBC (Bld) [#/Vol] 3.12 10*6/uL Low 3.90-5.60 [facility] Comment on above: Performed By: #### B YOSEPH, CBCNO ####[address] [address] [facility] WBC (Bld) [#/Vol] 20.5 10*3/uL High 4.1-10.5 [facility] Comment on above: Performed By: #### B MP, CBCNO ####[facility] [place] [address] [facility] Hepatic Panelon 11-17-2022 Albumin [Mass/Vol] 2.4 g/dL Low 3.5-5.7 [facility] Comment on above: Order Comment: Comme nt please run off blood drawn this morning Performed By: #### L IPASE, CATRACHITO, HEPATIC ####[facility] [place] [address] [facility] Albumin/Globulin [Mass ratio] 0.7 {ratio} Normal [facility] Comment on above: Order Comment: Comme nt please run off blood drawn this morning Performed By: #### L IPASE, CATRACHITO, HEPATIC ####[facility] [place] [address] [facility] ALP [Catalytic activity/Vol] 170 U/L High 34-104 [facility] Comment on above: Order Comment: Comme nt please run off blood drawn this morning Performed By: #### L IPASE, CATRACHITO, HEPATIC ####[facility] [place] [address] [facility] ALT [Catalytic activity/Vol] 64 U/L High 7-52 [facility] Comment on above: Order Comment: Comme nt please run off blood drawn this morning Performed By: #### L IPASE, CATRACHITO, HEPATIC ####[facility] [place] [address] [facility] AST [Catalytic activity/Vol] 64 U/L High 13-39 [facility] Comment on above: Order Comment: Comme nt please run off blood drawn this morning Performed By: #### L IPASE, CATRACHITO, HEPATIC ####[facility] [place] [address] [facility] Bilirubin [Mass/Vol] 0.6 mg/dL Normal 0.3-1.0 [facility] Comment on above: Order Comment: Comme nt please run off blood drawn this morning Performed By: #### L IPASE, CATRACHITO, HEPATIC ####[facility] [place] [address] [place] Bilirubin,Indirect 0.3 mg/dL Normal [facility] Comment on above: Order Comment: Comme nt please run off blood drawn this morning Performed By: #### L IPASE, CATRACHITO, HEPATIC ####[place] [id number] [facility] Bilirubin.indirect [Mass/Vol] 0.30 mg/dL High 0.03-0.18 [facility] Comment on above: Order Comment: Comme nt please run off blood drawn this morning Performed By: #### L IPASE, CATRACHITO, HEPATIC ####[place] [address] [place] [address] [facility] Globulin (S) [Mass/Vol] 3.6 g/dL Normal [facility] Comment on above: Order Comment: Comme nt please run off blood drawn this morning Performed By: #### L IPASE, CATRACHITO, HEPATIC ####[address] [address] [facility] Protein [Mass/Vol] 6.0 g/dL Low 6.4-8.9 [facility] Comment on above: Order Comment: Comme nt please run off blood drawn this morning Performed By: #### L IPASE, CATRACHITO, HEPATIC ####[place] [id number] [facility] Lipaseon 11-17-2022 Lipase [Catalytic activity/Vol] 12.0 U/L Normal 11.0-82.0 [facility] Comment on above: Order Comment: Comme nt please run off blood drawn this morning Result Comment: PERF ORMED BY:[place] [address] [place], [place] [phone] MEDICAL ALEKSANDAR LAUREN M.D. Performed By: #### L IPASE, CATRACHITO, HEPATIC ####[place] [id number] [facility] Lipase [Enzymatic activity/v olume] in Serum or PlasmaOrdered By: Evi Gay on 11-17-2022 Lipase [Catalytic activity/Vol] 12.0 U/L 11.0-82.0 [facility] Magnesiumon 11-17-2022 Magnesium [Mass/Vol] 1.9 mg/dL Normal 1.9-2.7 [facility] Comment on above: Result Comment: PERF ORMED BY:[place] [address] [place] [place], [place] [phone] MEDICAL DIRECTORNATI LAUREN M.D. Performed By: #### M G ####[address] [place] [address] [facility] No Panel InformationOrdered By: Shant Villegas on 11-17-2022 Bedside Glucose Comment Glu2: cleaned meter [facility] Serum or plasma non-glucuron idated bilirubin measurement (mass/volume)Ordered By: Evi Gay on 11-17-2022 Bilirubin.indirect [Mass/Vol] 0.3 mg/dL [facility] Thyroid Stimulating Hormoneo n 11-17-2022 TSH Qn 9.27 m[IU]/L High 0.45-5.33 [facility] Comment on above: Order Comment: Commrosalba larsen please run off blood drawn today Result Comment: PERF ORMED BY:[place] [address] [place] [place], [place] [phone] MEDICAL DIRECTORNATI LAUREN M.D. Performed By: #### T SH3 ####[address] [address] [facility] Thyrotropin [Units/volume] i n Serum or PlasmaOrdered By: Evi Gay on 11-17-2022 TSH Qn 9.27 m[IU]/L 0.45-5.33 [facility] Troponin I High Sensitivityo n 11-17-2022 Troponin I High Sensitivity 24.1 pg/mL High 0.0-20.0 [facility] Comment on above: Order Comment: Commrosalba larsen has CVC LINE DRAW Result Comment: PERF ORMED BY:[place] [address] [place] [phone] MEDICAL DIRECTORNATI LAUREN M.D. Performed By: #### H S TROP, CK ####[address] [address] [facility] Troponin I.cardiac [Mass/vol ume] in Serum or Plasma by Detection limit <= 0.01 ng/Ordered By: Evi Gay on 11-17-2022 Troponin I.cardiac DL <= 0.01 ng/mL [Mass/Vol] 24.1 pg/mL 0.0-20.0 [facility] XR chest 1V portableon 11-17 XR chest 1V portable Normal [facility] Arterial Blood Gason 023 ABG Base Excess 10.9 mmol/L High -3.0-3.0 [facility] Comment on above: Performed By: #### A BG ####Point of Care testing, ABG Frac Inspired O2 50 % [facility] Comment on above: Performed By: #### A BG ####Point of Care testing, ABG Oxygen Content 6.1 mmol/L Low 6.6-9.7 [facility] Comment on above: Performed By: #### A BG ####Point of Care testing, ABG Oxygen Saturation 94.7 % Low 95.0-100.0 [facility] Comment on above: Performed By: #### A BG ####Point of Care testing, ABG PCO2 43.6 mm[Hg] Normal 35.0-45.0 [facility] Comment on above: Performed By: #### A BG ####Point of Care testing, ABG PEEP 10 [facility] Comment on above: Performed By: #### A BG ####Point of Care testing, ABG PH 7.52 High 7.35-7.45 [facility] Comment on above: Performed By: #### A BG ####Point of Care testing, ABG PO2 71.3 mm[Hg] Low 80.0-100.0 [facility] Comment on above: Performed By: #### A BG ####Point of Care testing, ABG TV 500 mL [facility] Comment on above: Performed By: #### A BG ####Point of Care testing, CO2 [Moles/Vol] 36.1 mmol/L High 23.0-27.0 [facility] Comment on above: Performed By: #### A BG ####Point of Care testing, HCO3 (Bld) [Moles/Vol] 34.8 mmol/L High 23.0-29.0 [facility] Comment on above: Performed By: #### A BG ####Point of Care testing, Respiratory Critical [facility] Comment on above: Result Comment: Crit ical Value called on: 11/16/2022 at 04:35PERFORMED BY:[facility] [place], [place] [phone] MEDICAL DIRECTORNATI LAUREN M.D. Performed By: #### A BG ####Point of Care testing, Set Respiratory Rate 20 [facility] Comment on above: Performed By: #### A BG ####Point of Care testing, VBG Draw Site Left Radial [facility] Comment on above: Performed By: #### A BG ####Point of Care testing, Ventilator Mode AC [facility] Comment on above: Performed By: #### A BG ####Point of Care testing, Automated erythrocytes count in urine sediment (number/area)Ordered By: Sanjay Holt on 11-16-2022 RBC Auto (Urine sed) [#/Area] 50-100 [HPF] 0-4 [facility] Automated leukocytes count i n urine sediment (number/area)Ordered By: Sanjay Holt on 11-16-2022 WBC Auto (Urine sed) [#/Area] 3-4 [HPF] 0-4 [facility] Basic Metabolic Panelon 11-07 Anion gap [Moles/Vol] 8.6 mmol/L Normal 6.0-15.0 [facility] Comment on above: Performed By: #### B MP, TRIG ####[facility] [id number] [place] [address] [facility] Calcium [Mass/Vol] 7.5 mg/dL Low 8.6-10.3 [facility] Comment on above: Performed By: #### B MP, TRIG ####[facility] [address] [place] [address] [place] Chloride [Moles/Vol] 90 mmol/L Low 98-107 [facility] Comment on above: Performed By: #### B MP, TRIG ####[place] [address] [place] [id number] [facility] CO2 [Moles/Vol] 36.7 mmol/L High 21.0-31.0 [facility] Comment on above: Performed By: #### B MP, TRIG ####[place] [address] [place] [id number] [place] Creatinine [Mass/Vol] 0.65 mg/dL Low 0.70-1.30 [facility] Comment on above: Performed By: #### B YOSEPH, TRIG ####[place] [address] [place] [id number] [place] Creatinine Clr Calc Pharmacy 167.57 [facility] Comment on above: Performed By: #### B YOSEPH, TRIG ####[place] [id number] [place] GFR/1.73 sq M.predicted MDRD (S/P/Bld) [Vol rate/Area] mL/min/{1.73_m2} [facility] Comment on above: Performed By: #### B YOSEPH, TRIG ####[place] [address] Glucose [Mass/Vol] 106 mg/dL High 70-100 [facility] Comment on above: Result Comment: [place] Glucose Reference Range is dependent on time and content of last meal. Glucose of more than 200 mg/dL in a nonstressed, ambulatory subject supports the diagnosis of Diabetes Mellitus. ADA recommended reference range Performed By: #### B MP, TRIG ####[place] [address] [place] [id number] [place] Potassium [Moles/Vol] 4.3 mmol/L Normal 3.5-5.1 [facility] Comment on above: Performed By: #### B MP, TRIG ####[place] [id number] [facility] Sodium [Moles/Vol] 131 mmol/L Low 136-145 [facility] Comment on above: Performed By: #### B MP, TRIG ####[place] [address] [place] [address] [facility] Urea nitrogen [Mass/Vol] 32 mg/dL High 7 [facility] Comment on above: Performed By: #### B MP, TRIG ####[address] [address] [facility] Bilirubin Test strip Ql (U)O rdered By: Sanjay Holt on 11-16-2022 Bilirubin Ql (U) Negative Negative [facility] Blood Cultureon 11-16-2022 Bacteria identified Cx Nom (Bld) NO GROWTH 5 DAYS PERFORMED BY: [place] [address] PATHOLOGIST SALES FLOOR TEAM LEADER NATI LAUREN M.D. [facility] Comment on above: Performed By: #### C UBLD ####[address] [address] [place] [facility] Bacteria identified Cx Nom (Bld) NO GROWTH 5 DAYS PERFORMED BY: [facility] [address] [place] [address] PATHOLOGIST SALES FLOOR TEAM LEADER NATI LAUREN M.D. [facility] Comment on above: Performed By: #### C UBLD ####[address] [address] [facility] CT angio chest PE protocolon 11-16-2022 CT angio chest PE protocol Normal [facility] Color Auto (U)Ordered By: Stephanie Holt on 11-16-2022 Color (U) Dark yellow Yellow [facility] Dipstick and Microscopicon 0 11-16-2022 Appearance (U) Clear Normal Clear [facility] Comment on above: Order Comment: Name Collection Type:: Jones Catheter Performed By: #### C UU, ADDONUAPLUS ####[address] [address] [facility] Bacteria,Urine None Seen Normal None Seen [facility] Comment on above: Order Comment: Name Collection Type:: Jones Catheter Performed By: #### C UU, ADDONUAPLUS ####[address] [place] [address] [facility] Bilirubin,Urine Negative Normal Negative [facility] Comment on above: Order Comment: Name Collection Type:: Jones Catheter Performed By: #### C UU, ADDONUAPLUS ####[address] [place] [address] [facility] Color (U) Dark Yellow Critically abnormal Yellow [facility] Comment on above: Order Comment: Name Collection Type:: Jones Catheter Performed By: #### C UU, ADDONUAPLUS ####[address] [address] [facility] Glucose Ql (U) Normal Normal Normal [facility] Comment on above: Order Comment: Name Collection Type:: Jones Catheter Performed By: #### C UU, ADDONUAPLUS ####[address] [address] [facility] Hyaline Casts,Urine 0-8 Normal 0-8 [facility] Comment on above: Order Comment: Name Collection Type:: Jones Catheter Result Comment: PERF ORMED BY:[address] NGO[place]osalbaAlfreditoWO[place], [place] [phone] MEDICAL DIRECTORNATI LAUREN M.D. Performed By: #### C UU, ADDONUAPLUS ####[address] [address] [facility] Ketones Ql (U) Negative Normal Negative [facility] Comment on above: Order Comment: Name Collection Type:: Jones Catheter Performed By: #### C UU, ADDONUAPLUS ####[address] [place] [address] [facility] Leukocyte esterase Test strip Ql (U) 1+ High Negative [facility] Comment on above: Order Comment: Name Collection Type:: Jones Catheter Performed By: #### C UU, ADDONUAPLUS ####[address] [address] [facility] Nitrite,Urine Negative Normal Negative [facility] Comment on above: Order Comment: Name Collection Type:: Jones Catheter Performed By: #### C UU, ADDONUAPLUS ####[address] [address] [facility] Occult Blood,Urine 1+ High Negative [facility] Comment on above: Order Comment: Name Collection Type:: Jones Catheter Result Comment: PERF ORMED BY:[address] [place], [place] [phone] MEDICAL DIRECTORNATI LAUREN M.D. Performed By: #### C UU, ADDONUAPLUS ####[address] [address] [facility] pH (U) 5.5 [pH] Normal 5.0-9.0 [facility] Comment on above: Order Comment: Name Collection Type:: Jones Catheter Performed By: #### C UU, ADDONUAPLUS ####[address] [address] [facility] Protein,Urine Trace High Negative [facility] Comment on above: Order Comment: Name Collection Type:: Jones Catheter Performed By: #### C UU, ADDONUAPLUS ####[address] [address] [facility] RBC,Urine 50-100 High 0-4 [facility] Comment on above: Order Comment: Name Collection Type:: Jones Catheter Performed By: #### C UU, ADDONUAPLUS ####[address] [address] [facility] Specificy [place],Urine 1.022 Normal 1.001-1.03 0 [facility] Comment on above: Order Comment: Name Collection Type:: Jones Catheter Performed By: #### C UU, ADDONUAPLUS ####[address] [address] [facility] Squamous Epithelial Cell,Urine None Seen Normal 0-2 [facility] Comment on above: Order Comment: Name Collection Type:: Jones Catheter Performed By: #### C UU, ADDONUAPLUS ####[address] [address] [facility] Urobilinogen,Urine Normal Normal Normal [facility] Comment on above: Order Comment: Name Collection Type:: Jones Catheter Performed By: #### C UU, ADDONUAPLUS ####[facility] [place] [address] [facility] WBC,Urine 3-4 Normal 0-4 [facility] Comment on above: Order Comment: Name Collection Type:: Jones Catheter Performed By: #### C UU, ADDONUAPLUS ####[facility] [place] [address] [facility] Glucose Poct Glucometerson 0 11-16-2022 Commemt1 Glu2: Cleaned Meter Normal [facility] Comment on above: Result Comment: PERF ORMED BY:[address] [place], [place] [phone] MEDICAL DIRECTORNATI LAUREN M.D. Performed By: #### G LULS ####Point of Care testing, Glucose [Mass/Vol] 101 mg/dL Normal [facility] Comment on above: Result Comment: [facility] Glucose Reference Range is dependent on time and content of last meal. Glucose of more than 200 mg/dL in a nonstressed, ambulatory subject supports the diagnosis of Diabetes Mellitus. Performed By: #### G LULS ####Point of Care testing, Ketones Auto test strip (U) [Mass/Vol]Ordered By: Sanjay Holt on 11-16-2022 Ketones (U) [Mass/Vol] Negative Negative [facility] Laboratory - UrinalysisOrder ed By: Sanjay Holt on 11-16-2022 Hyaline casts LM Ql (Urine sed) 0-8 [LPF] 0-8 [facility] Nitrite Test strip Ql (U)Ord ered By: Sanjay Holt on 11-16-2022 Nitrite Ql (U) Negative Negative [facility] Protein Auto test strip (U) [Mass/Vol]Ordered By: Sanjay Holt on 11-16-2022 Protein (U) [Mass/Vol] Trace mg/dL Negative [facility] Red blood cell stomatocyte d etectionOrdered By: Reginald Arroyo on 05-10-2023 Stomatocytes LM Ql (Bld) Slight [facility] Scan and CBCon 11-16-2022 Basophils (Bld) [#/Vol] 0.2 10*3/uL Normal 0.0-0.2 [facility] Comment on above: Performed By: #### S CAN CBC ####[address] Basophils/100 WBC (Bld) 0.7 % Normal . [facility] Comment on above: Performed By: #### S CAN CBC ####[address] Eosinophils (Bld) [#/Vol] 0.2 10*3/uL Normal 0.0-0.45 [facility] Comment on above: Performed By: #### S CAN CBC ####[address] Eosinophils/100 WBC (Bld) 0.8 % Normal . [facility] Comment on above: Performed By: #### S CAN CBC ####[address] Erythrocyte distribution width (RBC) [Ratio] 13.7 % Normal 12.0-14.8 [facility] Comment on above: Performed By: #### S CAN CBC ####[id number] [facility] Hematocrit (Bld) [Volume fraction] 26.4 % Low 38.8-50.0 [facility] Comment on above: Performed By: #### S CAN CBC ####[id number] [facility] Hemoglobin (Bld) [Mass/Vol] 8.6 g/dL Low 13.0-17.0 [facility] Comment on above: Performed By: #### S CAN CBC ####[id number] [facility] Hypochromasia Moderate Normal [facility] Comment on above: Performed By: #### S CAN CBC ####[id number] [facility] Lymphocytes (Bld) [#/Vol] 1.9 10*3/uL Normal 1.00-4.8 [facility] Comment on above: Performed By: #### S CAN CBC ####[address] Lymphocytes/100 WBC (Bld) 7.8 % Normal . [facility] Comment on above: Performed By: #### S CAN CBC ####[address] MCH (RBC) [Entitic mass] 29.0 pg Normal 27.5-35.2 [facility] Comment on above: Performed By: #### S CAN CBC ####[address] MCV (RBC) [Entitic vol] 89.5 fL Normal 83.5-101 [facility] Comment on above: Performed By: #### S CAN CBC ####[address] Mean Corpuscular HGB Conc 32.4 g/dL Low 32.5-35.6 [facility] Comment on above: Performed By: #### S CAN CBC ####[address] Monocytes (Bld) [#/Vol] 2.3 10*3/uL High 0.0-0.8 [facility] Comment on above: Performed By: #### S CAN CBC ####[address] Monocytes/100 WBC (Bld) 9.4 % Normal . [facility] Comment on above: Performed By: #### S CAN CBC ####[address] Neutrophils (Bld) [#/Vol] 19.7 10*3/uL High 1.8-7.7 [facility] Comment on above: Performed By: #### S CAN CBC ####[address] Neutrophils/100 WBC (Bld) 81.3 % Normal . [facility] Comment on above: Performed By: #### S CAN CBC ####[address] [address] [facility] NRBC% 0.0 /100{WBC} Normal 0-0.5 [facility] Comment on above: Performed By: #### S CAN CBC ####[address] [address] [facility] Platelet Estimate Normal Normal Normal [facility] Comment on above: Performed By: #### S CAN CBC ####[address] [address] [facility] Platelet mean volume (Bld) [Entitic vol] 7.8 fL Normal 6.6-10.1 [facility] Comment on above: Performed By: #### S CAN CBC ####[id number] [facility] Platelet Morphology Normal Normal Normal [facility] Comment on above: Result Comment: PERF ORMED BY:[address] NGOZIRosalbaAlfreditoWOODS[place], [place] [phone] MEDICAL ALEKSANDAR LAUREN M.D. Performed By: #### S CAN CBC ####[address] [address] [facility] Platelets (Bld) [#/Vol] 369 10*3/uL Normal 150-450 [facility] Comment on above: Performed By: #### S CAN CBC ####[address] [address] [facility] Polychromasia Slight Normal [facility] Comment on above: Performed By: #### S CAN CBC ####[address] [address] [facility] RBC (Bld) [#/Vol] 2.95 10*6/uL Low 3.90-5.60 [facility] Comment on above: Performed By: #### S CAN CBC ####[address] [address] [facility] Stomatocytes Slight Normal [facility] Comment on above: Performed By: #### S CAN CBC ####[address] WBC (Bld) [#/Vol] 24.2 10*3/uL High 4.1-10.5 [facility] Comment on above: Performed By: #### S CAN CBC ####[address] Specific gravity Auto test s trip (U) [Rel density]Ordered By: Sanjay Holt on 11-16-2022 Specific gravity (U) [Rel density] 1.022 1.001-1.03 0 [facility] Squamous epithelial cells de tection in urine sediment by light microscopyOrdered By: Sanjay Holt on 11-16-2022 Epithelial cells.squamous LM Ql (Urine sed) None seen [HPF] 0-2 [facility] Triglycerideson 11-16-2022 Triglyceride [Mass/Vol] 109 mg/dL Normal 0-149 [facility] Comment on above: Result Comment: TRIG ATP III CLASSIFICATION TRIG less than 150 mg/dL Normal TRIG 150-199 mg/dL Borderline high TRIG 200-500 mg/dL High TRIG greater than 500 mg/dL Very high Standard traceable to the Center for Disease Conrtrol and Prevention (CDC) test method.PERFORMED BY:[facility] [place], [place] [phone] MEDICAL DIRECTORNATI LAUREN M.D. Performed By: #### B MP, TRIG ####[id number] [facility] Urine Cultureon 11-16-2022 Bacteria identified Cx Nom (U) No Growth 2 Days PERFORMED BY: [facility] [address] [place] [id number] PATHOLOGIST SALES FLOOR TEAM LEADER NATI LAUREN M.D. Normal [facility] Comment on above: Performed By: #### C UU, ADDONUAPLUS ####[id number] [facility] Urine bacteria detection by automated methodOrdered By: Sanjay Holt on 11-16-2022 Bacteria Auto Ql (U) None seen None Seen [facility] Urine clarity by refractomet ry automatedOrdered By: Sanjay Holt on 11-16-2022 Clarity Refractometry automated (U) Clear Clear [facility] Urine culture routineOrdered By: Sanjay Holt on 11-16-2022 Bacteria identified Cx Nom (U) No Growth 2 Days [facility] Urine glucose measurement by automated test strip (mass/volume)Ordered By: Sanjay Holt on 11-16-2022 Glucose Auto test strip (U) [Mass/Vol] Normal mg/dL Normal [facility] Urine hemoglobin detection b y automated test stripOrdered By: Sanjay Holt on 11-16-2022 Hemoglobin Auto test strip Ql (U) 1+ Negative [facility] Urine leukocyte esterase det ection by automated test stripOrdered By: Sanjay Holt on 11-16-2022 Leukocyte esterase Auto test strip Ql (U) 1+ Negative [facility] Urobilinogen Auto test strip (U) [Mass/Vol]Ordered By: Sanjay Holt on 11-16-2022 Urobilinogen (U) [Mass/Vol] Normal mg/dL Normal [facility] XR chest 1V portableon 11-16 XR chest 1V portable Normal [facility] pH Auto test strip (U)Ordere d By: Sanjay Holt on 11-16-2022 pH (U) 5.5 [pH] 5.0-9.0 [facility] Arterial Blood Gason 023 ABG Base Excess 9.5 mmol/L High -3.0-3.0 [facility] Comment on above: Performed By: #### A BG ####Point of Care testing, ABG Frac Inspired O2 80 % Normal [facility] Comment on above: Performed By: #### A BG ####Point of Care testing, ABG Oxygen Content 7.0 mmol/L Normal 6.6-9.7 [facility] Comment on above: Performed By: #### A BG ####Point of Care testing, ABG Oxygen Saturation 97.2 % Normal 95.0-100.0 [facility] Comment on above: Performed By: #### A BG ####Point of Care testing, ABG PCO2 45.9 mm[Hg] High 35.0-45.0 [facility] Comment on above: Performed By: #### A BG ####Point of Care testing, ABG PEEP 10 [facility] Comment on above: Performed By: #### A BG ####Point of Care testing, ABG PH 7.49 High 7.35-7.45 [facility] Comment on above: Performed By: #### A BG ####Point of Care testing, ABG PO2 92.1 mm[Hg] Normal 80.0-100.0 [facility] Comment on above: Performed By: #### A BG ####Point of Care testing, ABG TV 500 mL [facility] Comment on above: Performed By: #### A BG ####Point of Care testing, CO2 [Moles/Vol] 35.4 mmol/L High 23.0-27.0 [facility] Comment on above: Performed By: #### A BG ####Point of Care testing, HCO3 (Bld) [Moles/Vol] 34.0 mmol/L High 23.0-29.0 [facility] Comment on above: Performed By: #### A BG ####Point of Care testing, Respiratory Critical [facility] Comment on above: Result Comment: Crit ical Value called on: 11/15/2022 at 05:48PERFORMED BY:[address] [place], [place] [phone] MEDICAL DIRECTORNATI LAUREN M.D. Performed By: #### A BG ####Point of Care testing, Set Respiratory Rate 20 [facility] Comment on above: Performed By: #### A BG ####Point of Care testing, VBG Draw Site Left Radial [facility] Comment on above: Performed By: #### A BG ####Point of Care testing, Ventilator Mode AC [facility] Comment on above: Performed By: #### A BG ####Point of Care testing, Basic Metabolic Panelon 05-0 Anion gap [Moles/Vol] 8.4 mmol/L Normal 6.0-15.0 [facility] Comment on above: Performed By: #### S CAN CBC, BMP ####[address] [place] [address] [facility] Calcium [Mass/Vol] 7.8 mg/dL Low 8.6-10.3 [facility] Comment on above: Performed By: #### S CAN CBC, BMP ####[id number] [facility] Chloride [Moles/Vol] 90 mmol/L Low 98-107 [facility] Comment on above: Performed By: #### S CAN CBC, BMP ####[address] [place] [id number] [facility] CO2 [Moles/Vol] 35.9 mmol/L High 21.0-31.0 [facility] Comment on above: Performed By: #### S CAN CBC, BMP ####[id number] [facility] Creatinine [Mass/Vol] 0.57 mg/dL Low 0.70-1.30 [facility] Comment on above: Performed By: #### S CAN CBC, BMP ####[address] [place] [address] [facility] Creatinine Clr Calc Pharmacy 191.33 [facility] Comment on above: Result Comment: PERF ORMED BY:[address] [place], [place] [phone] MEDICAL ALEKSANDAR LAUREN M.D. Performed By: #### S CAN CBC, BMP ####[address] [address] [place] GFR/1.73 sq M.predicted MDRD (S/P/Bld) [Vol rate/Area] mL/min/{1.73_m2} [facility] Comment on above: Performed By: #### S CAN CBC, BMP ####[id number] [facility] Glucose [Mass/Vol] 126 mg/dL High 70-100 [facility] Comment on above: Result Comment: [place] Glucose Reference Range is dependent on time and content of last meal. Glucose of more than 200 mg/dL in a nonstressed, ambulatory subject supports the diagnosis of Diabetes Mellitus. ADA recommended reference range Performed By: #### S CAN CBC, BMP ####[facility] [id number] [facility] Potassium [Moles/Vol] 4.3 mmol/L Normal 3.5-5.1 [facility] Comment on above: Performed By: #### S CAN CBC, BMP ####[facility] [id number] Sodium [Moles/Vol] 130 mmol/L Low 136-145 [facility] Comment on above: Performed By: #### S CAN CBC, BMP ####[facility] [id number] Urea nitrogen [Mass/Vol] 28 mg/dL High 7-25 [facility] Comment on above: Performed By: #### S CAN CBC, BMP ####[facility] [id number] [facility] Scan and CBCon 11-15-2022 Basophils (Bld) [#/Vol] 0.0 10*3/uL Normal 0.0-0.2 [facility] Comment on above: Performed By: #### S CAN CBC, BMP ####[address] [place] [id number] [place] Basophils/100 WBC (Bld) 0.1 % Normal . [facility] Comment on above: Performed By: #### S CAN CBC, BMP ####[facility] [id number] [id number] [place] Eosinophils (Bld) [#/Vol] 0.2 10*3/uL Normal 0.0-0.45 [facility] Comment on above: Performed By: #### S CAN CBC, BMP ####[facility] [id number] [id number] [facility] Eosinophils/100 WBC (Bld) 1.0 % Normal . [facility] Comment on above: Performed By: #### S CAN CBC, BMP ####[address] Erythrocyte distribution width (RBC) [Ratio] 13.7 % Normal 12.0-14.8 [facility] Comment on above: Performed By: #### S CAN CBC, BMP ####[address] Hematocrit (Bld) [Volume fraction] 30.3 % Low 38.8-50.0 [facility] Comment on above: Performed By: #### S CAN CBC, BMP ####[address] Hemoglobin (Bld) [Mass/Vol] 10.1 g/dL Low 13.0-17.0 [facility] Comment on above: Performed By: #### S CAN CBC, BMP ####[address] Hypochromasia Moderate Normal [facility] Comment on above: Performed By: #### S CAN CBC, BMP ####[address] Lymphocytes (Bld) [#/Vol] 1.9 10*3/uL Normal 1.00-4.8 [facility] Comment on above: Performed By: #### S CAN CBC, BMP ####[address] Lymphocytes/100 WBC (Bld) 7.8 % Normal . [facility] Comment on above: Performed By: #### S CAN CBC, BMP ####[address] MCH (RBC) [Entitic mass] 29.9 pg Normal 27.5-35.2 [facility] Comment on above: Performed By: #### S CAN CBC, BMP ####[address] MCV (RBC) [Entitic vol] 89.5 fL Normal 83.5-101 [facility] Comment on above: Performed By: #### S CAN CBC, BMP ####[address] Mean Corpuscular HGB Conc 33.4 g/dL Normal 32.5-35.6 [facility] Comment on above: Performed By: #### S CAN CBC, BMP ####[address] Monocytes (Bld) [#/Vol] 2.4 10*3/uL High 0.0-0.8 [facility] Comment on above: Performed By: #### S CAN CBC, BMP ####[address] Monocytes/100 WBC (Bld) 9.7 % Normal . [facility] Comment on above: Performed By: #### S CAN CBC, BMP ####[address] Neutrophils (Bld) [#/Vol] 20.4 10*3/uL High 1.8-7.7 [facility] Comment on above: Performed By: #### S CAN CBC, BMP ####[address] Neutrophils/100 WBC (Bld) 81.4 % Normal . [facility] Comment on above: Performed By: #### S CAN CBC, BMP ####[address] NRBC% 0.0 /100{WBC} Normal 0-0.5 [facility] Comment on above: Performed By: #### S CAN CBC, BMP ####[place] [id number] [facility] Platelet Estimate Normal Normal Normal [facility] Comment on above: Performed By: #### S CAN CBC, BMP ####[address] Platelet mean volume (Bld) [Entitic vol] 7.7 fL Normal 6.6-10.1 [facility] Comment on above: Performed By: #### S CAN CBC, BMP ####[address] [address] [facility] Platelet Morphology Normal Normal Normal [facility] Comment on above: Result Comment: PERF ORMED BY:[address] [address] [address] [place] [phone] MEDICAL ALEKSANDAR LAUREN M.D. Performed By: #### S CAN CBC, BMP ####[place] [id number] [facility] Platelets (Bld) [#/Vol] 381 10*3/uL Normal 150-450 [facility] Comment on above: Performed By: #### S CAN CBC, BMP ####[place] [id number] [facility] Polychromasia Slight Normal [facility] Comment on above: Performed By: #### S CAN CBC, BMP ####[place] [id number] [facility] RBC (Bld) [#/Vol] 3.39 10*6/uL Low 3.90-5.60 [facility] Comment on above: Performed By: #### S CAN CBC, BMP ####[place] [id number] [facility] Stomatocytes Slight Normal [facility] Comment on above: Performed By: #### S CAN CBC, BMP ####[place] [id number] [facility] Toxic Vacuolation Slight Normal [facility] Comment on above: Performed By: #### S CAN CBC, BMP ####[place] [id number] [facility] WBC (Bld) [#/Vol] 25.0 10*3/uL High 4.1-10.5 [facility] Comment on above: Performed By: #### S CAN CBC, BMP ####[place] [id number] [facility] Toxic leukocyte vacuolation detectionOrdered By: Reginald Arroyo on 11-15-2022 Leukocyte toxic vacuoles LM Ql (Bld) Slight [facility] XR chest 1V portableon 11-15 XR chest 1V portable Normal [facility] AFB Specimen Processingon AFB Specimen Processing [facility] Comment on above: Performed By: #### A FBCS RES1, MYC CULT ####[facility] ,#### FS ####[facility] [id number] [place] [address] [facility] Anisocytosis LM Ql (Bld)Orde red By: Reginald Arroyo on 11-14-2022 Anisocytosis Ql (Bld) Slight [facility] Arterial Blood Gason 023 ABG Base Excess 8.5 mmol/L High -3.0-3.0 [facility] Comment on above: Performed By: #### A BG ####Point of Care testing, ABG Frac Inspired O2 85 % [facility] Comment on above: Performed By: #### A BG ####Point of Care testing, ABG Oxygen Content 7.2 mmol/L Normal 6.6-9.7 [facility] Comment on above: Performed By: #### A BG ####Point of Care testing, ABG Oxygen Saturation 93.3 % Low 95.0-100.0 [facility] Comment on above: Performed By: #### A BG ####Point of Care testing, ABG PCO2 47.2 mm[Hg] High 35.0-45.0 [facility] Comment on above: Performed By: #### A BG ####Point of Care testing, ABG PEEP 8 [facility] Comment on above: Performed By: #### A BG ####Point of Care testing, ABG PH 7.47 High 7.35-7.45 [facility] Comment on above: Performed By: #### A BG ####Point of Care testing, ABG PO2 68.0 mm[Hg] Low 80.0-100.0 [facility] Comment on above: Performed By: #### A BG ####Point of Care testing, ABG TV 500 mL [facility] Comment on above: Performed By: #### A BG ####Point of Care testing, CO2 [Moles/Vol] 34.8 mmol/L High 23.0-27.0 [facility] Comment on above: Performed By: #### A BG ####Point of Care testing, HCO3 (Bld) [Moles/Vol] 33.3 mmol/L High 23.0-29.0 [facility] Comment on above: Performed By: #### A BG ####Point of Care testing, Respiratory Critical [facility] Comment on above: Result Comment: Crit ical Value called on: 11/14/2022 at 04:56PERFORMED BY:[facility] [place], [place] [phone] MEDICAL DIRECTORNATI LAUREN M.D. Performed By: #### A BG ####Point of Care testing, Set Respiratory Rate 20 [facility] Comment on above: Performed By: #### A BG ####Point of Care testing, VBG Draw Site Left Radial [facility] Comment on above: Performed By: #### A BG ####Point of Care testing, Ventilator Mode AC [facility] Comment on above: Performed By: #### A BG ####Point of Care testing, Basic Metabolic Panelon 05-0 Anion gap [Moles/Vol] 11.5 mmol/L Normal 6.0-15.0 [facility] Comment on above: Performed By: #### D IFF CBC, BMP ####[facility] Zcw[address] [place] [address] [facility] Calcium [Mass/Vol] 7.8 mg/dL Low 8.6-10.3 [facility] Comment on above: Performed By: #### D IFF CBC, BMP ####[facility] Hno4196 [place] [address] [place] Chloride [Moles/Vol] 91 mmol/L Low 98-107 [facility] Comment on above: Performed By: #### D IFF CBC, BMP ####[facility] Cdj1880 [place] [address] [facility] CO2 [Moles/Vol] 32.8 mmol/L High 21.0-31.0 [facility] Comment on above: Performed By: #### D IFF CBC, BMP ####[address] [place] [address] [facility] Creatinine [Mass/Vol] 0.59 mg/dL Low 0.70-1.30 [facility] Comment on above: Performed By: #### D IFF CBC, BMP ####[address] [place] [address] [place] Creatinine Clr Calc Pharmacy 186.93 [facility] Comment on above: Result Comment: PERF ORMED BY:[address] [place], [place] [phone] MEDICAL DIRECTORNATI LAUREN M.D. Performed By: #### D IFF CBC, BMP ####[address] [place] [address] [facility] GFR/1.73 sq M.predicted MDRD (S/P/Bld) [Vol rate/Area] mL/min/{1.73_m2} [facility] Comment on above: Performed By: #### D IFF CBC, BMP ####[address] [place] [address] [facility] Glucose [Mass/Vol] 105 mg/dL High 70-100 [facility] Comment on above: Result Comment: [place] Glucose Reference Range is dependent on time and content of last meal. Glucose of more than 200 mg/dL in a nonstressed, ambulatory subject supports the diagnosis of Diabetes Mellitus. ADA recommended reference range Performed By: #### D IFF CBC, BMP ####[facility] [place] [address] [facility] Potassium [Moles/Vol] 4.3 mmol/L Normal 3.5-5.1 [facility] Comment on above: Performed By: #### D IFF CBC, BMP ####[address] [place] [address] [facility] Sodium [Moles/Vol] 131 mmol/L Significant change down 136-145 [facility] Comment on above: Performed By: #### D IFF CBC, BMP ####[address] [address] [facility] Urea nitrogen [Mass/Vol] 22 mg/dL Normal 7-25 [facility] Comment on above: Performed By: #### D IFF CBC, BMP ####[address] [address] [facility] Bronch Cultureon 11-14-2022 Bronch Culture Normal [facility] Comment on above: Performed By: #### C UBR, ####[address] [address] [facility] Diff and CBCon 11-14-2022 Anisocytosis Ql (Bld) Slight Normal [facility] Comment on above: Performed By: #### D IFF CBC, BMP ####[place] [id number] [facility] Eosinophils/100 WBC (Bld) 2 % Normal 1-3 [facility] Comment on above: Performed By: #### D IFF CBC, BMP ####[place] [id number] [facility] Erythrocyte distribution width (RBC) [Ratio] 13.7 % Normal 12.0-14.8 [facility] Comment on above: Performed By: #### D IFF CBC, BMP ####[place] [id number] [facility] Hematocrit (Bld) [Volume fraction] 34.1 % Low 38.8-50.0 [facility] Comment on above: Performed By: #### D IFF CBC, BMP ####[address] [address] [facility] Hemoglobin (Bld) [Mass/Vol] 11.6 g/dL Low 13.0-17.0 [facility] Comment on above: Performed By: #### D IFF CBC, BMP ####[address] [place] [id number] [facility] Hypochromasia Slight Normal [facility] Comment on above: Performed By: #### D IFF CBC, BMP ####[place] [id number] [facility] Lymphocytes/100 WBC (Bld) 9 % Low 18-42 [facility] Comment on above: Performed By: #### D IFF CBC, BMP ####[address] MCH (RBC) [Entitic mass] 30.3 pg Normal 27.5-35.2 [facility] Comment on above: Performed By: #### D IFF CBC, BMP ####[address] MCV (RBC) [Entitic vol] 89.3 fL Normal 83.5-101 [facility] Comment on above: Performed By: #### D IFF CBC, BMP ####[address] Mean Corpuscular HGB Conc 33.9 g/dL Normal 32.5-35.6 [facility] Comment on above: Performed By: #### D IFF CBC, BMP ####[address] Metamyelocytes 2 % High 0-0 [facility] Comment on above: Performed By: #### D IFF CBC, BMP ####[place] [id number] [facility] Monocytes/100 WBC (Bld) 8 % Normal 2-11 [facility] Comment on above: Performed By: #### D IFF CBC, BMP ####[place] [id number] [facility] Myelocytes 1 % High 0-0 [facility] Comment on above: Performed By: #### D IFF CBC, BMP ####[place] [id number] [facility] Platelet Estimate Normal Normal Normal [facility] Comment on above: Result Comment: PERF ORMED BY:[address] [address] [address] [place], [place] [phone] MEDICAL DIRECTORNATI LAUREN M.D. Performed By: #### D IFF CBC, BMP ####[address] [place] [address] [facility] Platelet mean volume (Bld) [Entitic vol] 7.3 fL Normal 6.6-10.1 [facility] Comment on above: Performed By: #### D IFF CBC, BMP ####[address] [address] [facility] Platelet Morphology Normal Normal Normal [facility] Comment on above: Result Comment: PERF ORMED BY:[address] [address] [place], [place] [phone] MEDICAL DIRECTORNATI LAUREN M.D. Performed By: #### D IFF CBC, BMP ####[place] [id number] [facility] Platelets (Bld) [#/Vol] 445 10*3/uL Normal 150-450 [facility] Comment on above: Performed By: #### D IFF CBC, BMP ####[place] [id number] [facility] Poikilocytosis Slight Normal [facility] Comment on above: Performed By: #### D IFF CBC, BMP ####[address] [address] [facility] Polychromasia Slight Normal [facility] Comment on above: Performed By: #### D IFF CBC, BMP ####[address] [address] [facility] RBC (Bld) [#/Vol] 3.82 10*6/uL Low 3.90-5.60 [facility] Comment on above: Performed By: #### D IFF CBC, BMP ####[address] [address] [facility] Segmented neutrophils/100 WBC (Bld) 79 % High 50-70 [facility] Comment on above: Performed By: #### D IFF CBC, BMP ####[facility] [place] [address] [facility] Stomatocytes Slight Normal [facility] Comment on above: Performed By: #### D IFF CBC, BMP ####[facility] [place] [address] [facility] Target Cells Slight Normal [facility] Comment on above: Performed By: #### D IFF CBC, BMP ####[address] [place] [address] [facility] WBC (Bld) [#/Vol] 21.5 10*3/uL High 4.1-10.5 [facility] Comment on above: Performed By: #### D IFF CBC, BMP ####[address] [place] [address] [facility] Eosinophils/100 WBC Manual c nt (Bld)Ordered By: Reginald Arroyo on 11-14-2022 Eosinophils/100 WBC (Bld) 2 % 1-3 [facility] Fungal Smearon 11-14-2022 Fungal Smear Fungus Smear Results No Yeast Like Elements Seen No Fungal Like Elements Seen PERFORMED BY: [facility] [address] [place] [id number] PATHOLOGIST SALES FLOOR TEAM LEADER NATI LAUREN M.D. [facility] Comment on above: Performed By: #### A FBCS RES1, MYC CULT ####[facility] ,#### FS ####[address] [address] [facility] Fungus (Mycology) Cultureon 11-14-2022 Fungus (Mycology) Culture [facility] Comment on above: Performed By: #### A FBCS RES1, MYC CULT ####[facility] ,#### FS ####[address] [address] [facility] Glucose Poct Glucometerson 0 11-14-2022 Glucose [Mass/Vol] 87 mg/dL [facility] Comment on above: Result Comment: [place] Glucose Reference Range is dependent on time and content of last meal. Glucose of more than 200 mg/dL in a nonstressed, ambulatory subject supports the diagnosis of Diabetes Mellitus.PERFORMED BY:[facility] [place] [place], [place] [phone] MEDICAL DIRECTORNATI LAUREN M.D. Performed By: #### G LULS ####Point of Care testing, Gram Stainon 11-14-2022 Microscopic observation Gram stain Nom (Unsp spec) Gram Stain Result 3+ White Blood Cells 3+ Gram Positive Bacilli 1FPC PERFORMED BY: [facility] [address] [place] [address] PATHOLOGIST SALES FLOOR TEAM LEADER NATI LAUREN M.D. Normal [facility] Comment on above: Performed By: #### C UBR, ####[facility] [address] [place] [address] [facility] Lymphocytes/100 WBC Manual c nt (Bld)Ordered By: Reginald Arroyo on 11-14-2022 Lymphocytes/100 WBC (Bld) 9 % 18-42 [facility] Metamyelocytes/100 WBC Manua l cnt (Bld)Ordered By: Reginald Arroyo on 11-14-2022 Metamyelocytes/100 WBC (Bld) 2 % 0-0 [facility] Monocytes/100 WBC Manual cnt (Bld)Ordered By: Reginald Arroyo on 11-14-2022 Monocytes/100 WBC (Bld) 8 % 2-11 [facility] Myelocytes/100 WBC Manual cn t (Bld)Ordered By: Reginald Arroyo on 11-14-2022 Myelocytes/100 WBC (Bld) 1 % 0-0 [facility] Segmented neutrophils/100 WB C Manual cnt (Bld)Ordered By: Reginald Arroyo on 11-14-2022 Segmented neutrophils/100 WBC (Bld) 79 % 50-70 [facility] Target cellsOrdered By: Kira Arroyo on 11-14-2022 Target cells LM Ql (Bld) Slight [facility] Triglycerideson 11-14-2022 Triglyceride [Mass/Vol] 144 mg/dL Normal 0-149 [facility] Comment on above: Order Comment: Comme nt please run off blood drawn this morning Result Comment: TRIG ATP III CLASSIFICATION TRIG less than 150 mg/dL Normal TRIG 150-199 mg/dL Borderline high TRIG 200-500 mg/dL High TRIG greater than 500 mg/dL Very high Standard traceable to the Center for Disease Conrtrol and Prevention (CDC) test method.PERFORMED BY:[facility] [place], [place] [phone] MEDICAL DIRECTORNATI LAUREN M.D. Performed By: #### T RIG ####[facility] [place] [address] [facility] US venous duplex LE BIon US venous duplex LE BI Normal [facility] XR chest 1V portableon 11-14 XR chest 1V portable Normal [facility] XR chest 1V portable Normal [facility] Arterial Blood Gason 023 ABG Base Excess 10.0 mmol/L High -3.0-3.0 [facility] Comment on above: Performed By: #### A BG ####Point of Care testing, ABG Frac Inspired O2 60 % [facility] Comment on above: Performed By: #### A BG ####Point of Care testing, ABG Oxygen Content 7.3 mmol/L Normal 6.6-9.7 [facility] Comment on above: Performed By: #### A BG ####Point of Care testing, ABG Oxygen Saturation 90.3 % Low 95.0-100.0 [facility] Comment on above: Performed By: #### A BG ####Point of Care testing, ABG PCO2 52.0 mm[Hg] Off scale high 35.0-45.0 [facility] Comment on above: Performed By: #### A BG ####Point of Care testing, ABG PEEP 8 [facility] Comment on above: Performed By: #### A BG ####Point of Care testing, ABG PH 7.45 Normal 7.35-7.45 [facility] Comment on above: Performed By: #### A BG ####Point of Care testing, ABG PO2 58.1 mm[Hg] Low 80.0-100.0 [facility] Comment on above: Performed By: #### A BG ####Point of Care testing, ABG TV 500 mL [facility] Comment on above: Performed By: #### A BG ####Point of Care testing, CO2 [Moles/Vol] 37.2 mmol/L High 23.0-27.0 [facility] Comment on above: Performed By: #### A BG ####Point of Care testing, HCO3 (Bld) [Moles/Vol] 35.6 mmol/L High 23.0-29.0 [facility] Comment on above: Performed By: #### A BG ####Point of Care testing, Respiratory Critical [facility] Comment on above: Result Comment: Crit ical Value called on: 11/13/2022 at 05:00PERFORMED BY:[facility] [place], [place] [phone] MEDICAL DIRECTORNATI LAUREN M.D. Performed By: #### A BG ####Point of Care testing, Set Respiratory Rate 20 [facility] Comment on above: Performed By: #### A BG ####Point of Care testing, VBG Draw Site Right Radial [facility] Comment on above: Performed By: #### A BG ####Point of Care testing, Ventilator Mode AC [facility] Comment on above: Performed By: #### A BG ####Point of Care testing, Basic Metabolic Panelon Anion gap [Moles/Vol] 7.9 mmol/L Normal 6.0-15.0 [facility] Comment on above: Performed By: #### S CAN CBC, BMP ####[facility] [address] Banegasnov[facility] health mint [facility] [place] [address] [facility] Calcium [Mass/Vol] 8.0 mg/dL Low 8.6-10.3 [facility] Comment on above: Performed By: #### S CAN CBC, BMP ####[facility] Yyh[address]25 [place] [address] [place] Chloride [Moles/Vol] 96 mmol/L Low 98-107 [facility] Comment on above: Performed By: #### S CAN CBC, BMP ####[facility] Qxb6791 [place] [address] [facility] CO2 [Moles/Vol] 37.5 mmol/L High 21.0-31.0 [facility] Comment on above: Performed By: #### S CAN CBC, BMP ####[facility] [address]126 [place] [address] [facility] Creatinine [Mass/Vol] 0.42 mg/dL Low 0.70-1.30 [facility] Comment on above: Performed By: #### S CAN CBC, BMP ####[address] [place] [address] [place] Creatinine Clr Calc Pharmacy 263.49 [facility] Comment on above: Result Comment: PERF ORMED BY:[address] [place], [place] [phone] MEDICAL DIRECTORNATI LAUREN M.D. Performed By: #### S CAN CBC, BMP ####[address] [place] [address] [place] GFR/1.73 sq M.predicted MDRD (S/P/Bld) [Vol rate/Area] mL/min/{1.73_m2} [facility] Comment on above: Performed By: #### S CAN CBC, BMP ####[facility] [address] [place] [address] [place] Glucose [Mass/Vol] 93 mg/dL Normal 70-100 [facility] Comment on above: Result Comment: [place] Glucose Reference Range is dependent on time and content of last meal. Glucose of more than 200 mg/dL in a nonstressed, ambulatory subject supports the diagnosis of Diabetes Mellitus. ADA recommended reference range Performed By: #### S CAN CBC, BMP ####[facility] [id number] [place] [address] [facility] Potassium [Moles/Vol] 4.4 mmol/L Normal 3.5-5.1 [facility] Comment on above: Performed By: #### S CAN CBC, BMP ####[facility] Ybo3119 [place] [address] [facility] Sodium [Moles/Vol] 137 mmol/L Normal 136-145 [facility] Comment on above: Performed By: #### S CAN CBC, BMP ####[facility] Onq9027 [place] [address] [facility] Urea nitrogen [Mass/Vol] 20 mg/dL Normal 7-25 [facility] Comment on above: Performed By: #### S CAN CBC, BMP ####[facility] [place] [address] [facility] Glucose Poct Glucometerson 0 11-13-2022 Commemt1 Glu2: Cleaned Meter [facility] Comment on above: Result Comment: PERF ORMED BY:[address] [place]OVER[place]OV[place], [place] [phone] MEDICAL DIRECTORNATI LAUREN M.D. Performed By: #### G LULS ####Point of Care testing, Glucose [Mass/Vol] 121 mg/dL [facility] Comment on above: Result Comment: [facility] Glucose Reference Range is dependent on time and content of last meal. Glucose of more than 200 mg/dL in a nonstressed, ambulatory subject supports the diagnosis of Diabetes Mellitus. Performed By: #### G LULS ####Point of Care testing, Commemt1 Glu2: Cleaned Meter [facility] Comment on above: Result Comment: PERF ORMED BY:[place] [address] NGOZIRosalbaAlfreditoALEHOGANSB[place], [place] [phone] MEDICAL ALEKSANDAR LAUREN M.D. Performed By: #### G LULS ####Point of Care testing, Glucose [Mass/Vol] 87 mg/dL Normal [facility] Comment on above: Result Comment: [facility] Glucose Reference Range is dependent on time and content of last meal. Glucose of more than 200 mg/dL in a nonstressed, ambulatory subject supports the diagnosis of Diabetes Mellitus. Performed By: #### G LULS ####Point of Care testing, Commemt1 Glu2: Cleaned Meter [facility] Comment on above: Result Comment: PERF ORMED BY:[address] [place], [place] [phone] MEDICAL DIRECTORNATI LAUREN M.D. Performed By: #### G LULS ####Point of Care testing, Glucose [Mass/Vol] 96 mg/dL Normal [facility] Comment on above: Result Comment: [place] om Glucose Reference Range is dependent on time and content of last meal. Glucose of more than 200 mg/dL in a nonstressed, ambulatory subject supports the diagnosis of Diabetes Mellitus. Performed By: #### G LULS ####Point of Care testing, Commemt1 Glu2: Cleaned Meter [facility] Comment on above: Result Comment: PERF ORMED BY:[address] [place], [place] [phone] MEDICAL DIRECTORNATI LAUREN M.D. Performed By: #### G LULS ####Point of Care testing, Glucose [Mass/Vol] 111 mg/dL Normal [facility] Comment on above: Result Comment: [place] om Glucose Reference Range is dependent on time and content of last meal. Glucose of more than 200 mg/dL in a nonstressed, ambulatory subject supports the diagnosis of Diabetes Mellitus. Performed By: #### G LULS ####Point of Care testing, Scan and CBCon 11-13-2022 Basophils (Bld) [#/Vol] 0.2 10*3/uL Normal 0.0-0.2 [facility] Comment on above: Performed By: #### S CAN CBC, BMP ####[facility] [id number] [place] [address] [facility] Basophils/100 WBC (Bld) 1.2 % Normal . [facility] Comment on above: Performed By: #### S CAN CBC, BMP ####[address] Eosinophils (Bld) [#/Vol] 0.3 10*3/uL Normal 0.0-0.45 [facility] Comment on above: Performed By: #### S CAN CBC, BMP ####[place] [id number] [facility] Eosinophils/100 WBC (Bld) 2.0 % Normal . [facility] Comment on above: Performed By: #### S CAN CBC, BMP ####[address] Erythrocyte distribution width (RBC) [Ratio] 14.3 % Normal 12.0-14.8 [facility] Comment on above: Performed By: #### S CAN CBC, BMP ####[address] Hematocrit (Bld) [Volume fraction] 30.0 % Low 38.8-50.0 [facility] Comment on above: Performed By: #### S CAN CBC, BMP ####[address] Hemoglobin (Bld) [Mass/Vol] 9.8 g/dL Low 13.0-17.0 [facility] Comment on above: Performed By: #### S CAN CBC, BMP ####[address] Hypochromasia Moderate Normal [facility] Comment on above: Performed By: #### S CAN CBC, BMP ####[address] Lymphocytes (Bld) [#/Vol] 3.0 10*3/uL Normal 1.00-4.8 [facility] Comment on above: Performed By: #### S CAN CBC, BMP ####[address] Lymphocytes/100 WBC (Bld) 19.1 % Normal . [facility] Comment on above: Performed By: #### S CAN CBC, BMP ####[place] [address] MCH (RBC) [Entitic mass] 29.6 pg Normal 27.5-35.2 [facility] Comment on above: Performed By: #### S CAN CBC, BMP ####[address] MCV (RBC) [Entitic vol] 90.9 fL Normal 83.5-101 [facility] Comment on above: Performed By: #### S CAN CBC, BMP ####[address] Mean Corpuscular HGB Conc 32.6 g/dL Normal 32.5-35.6 [facility] Comment on above: Performed By: #### S CAN CBC, BMP ####[address] Monocytes (Bld) [#/Vol] 1.2 10*3/uL High 0.0-0.8 [facility] Comment on above: Performed By: #### S CAN CBC, BMP ####[address] Monocytes/100 WBC (Bld) 7.7 % Normal . [facility] Comment on above: Performed By: #### S CAN CBC, BMP ####[address] Neutrophils (Bld) [#/Vol] 11.1 10*3/uL High 1.8-7.7 [facility] Comment on above: Performed By: #### S CAN CBC, BMP ####[address] Neutrophils/100 WBC (Bld) 70.0 % Normal . [facility] Comment on above: Performed By: #### S CAN CBC, BMP ####[address] NRBC% 0.1 /100{WBC} Normal 0-0.5 [facility] Comment on above: Performed By: #### S CAN CBC, BMP ####[address] [address] [facility] Platelet Estimate Normal Normal Normal [facility] Comment on above: Performed By: #### S CAN CBC, BMP ####[address] [place] [address] [facility] Platelet mean volume (Bld) [Entitic vol] 7.0 fL Normal 6.6-10.1 [facility] Comment on above: Performed By: #### S CAN CBC, BMP ####[address] [address] [facility] Platelet Morphology Normal Normal Normal [facility] Comment on above: Result Comment: PERF ORMED BY:[address] [place], [place] [phone] MEDICAL DIRECTORNATI LAUREN M.D. Performed By: #### S CAN CBC, BMP ####[id number] [facility] Platelets (Bld) [#/Vol] 435 10*3/uL Normal 150-450 [facility] Comment on above: Performed By: #### S CAN CBC, BMP ####[address] [address] [facility] Polychromasia Slight Normal [facility] Comment on above: Performed By: #### S CAN CBC, BMP ####[address] [address] [facility] RBC (Bld) [#/Vol] 3.30 10*6/uL Low 3.90-5.60 [facility] Comment on above: Performed By: #### S CAN CBC, BMP ####[address] [address] [facility] Stomatocytes Slight Normal [facility] Comment on above: Performed By: #### S CAN CBC, BMP ####[address] [address] [facility] WBC (Bld) [#/Vol] 15.9 10*3/uL High 4.1-10.5 [facility] Comment on above: Performed By: #### S CAN CBC, BMP ####[facility] [address] [place] [address] [facility] XR chest 1V portableon 11-13 XR chest 1V portable Normal [facility] Arterial Blood Gason 023 ABG Base Excess 7.5 mmol/L High -3.0-3.0 [facility] Comment on above: Performed By: #### A BG ####Point of Care testing, ABG Frac Inspired O2 45 % [facility] Comment on above: Performed By: #### A BG ####Point of Care testing, ABG Oxygen Content 6.3 mmol/L Low 6.6-9.7 [facility] Comment on above: Performed By: #### A BG ####Point of Care testing, ABG Oxygen Saturation 89.5 % Low 95.0-100.0 [facility] Comment on above: Performed By: #### A BG ####Point of Care testing, ABG PCO2 50.7 mm[Hg] Off scale high 35.0-45.0 [facility] Comment on above: Performed By: #### A BG ####Point of Care testing, ABG PEEP 8 [facility] Comment on above: Performed By: #### A BG ####Point of Care testing, ABG PH 7.43 Normal 7.35-7.45 [facility] Comment on above: Performed By: #### A BG ####Point of Care testing, ABG PO2 59.2 mm[Hg] Low 80.0-100.0 [facility] Comment on above: Performed By: #### A BG ####Point of Care testing, ABG TV 500 mL [facility] Comment on above: Performed By: #### A BG ####Point of Care testing, CO2 [Moles/Vol] 34.5 mmol/L High 23.0-27.0 [facility] Comment on above: Performed By: #### A BG ####Point of Care testing, HCO3 (Bld) [Moles/Vol] 33.0 mmol/L High 23.0-29.0 [facility] Comment on above: Performed By: #### A BG ####Point of Care testing, Respiratory Critical [facility] Comment on above: Result Comment: Crit ical Value called on: 11/12/2022 at 04:59PERFORMED BY:[address] [place], [place] [phone] MEDICAL DIRECTORNATI LAUREN M.D. Performed By: #### A BG ####Point of Care testing, Set Respiratory Rate 20 [facility] Comment on above: Performed By: #### A BG ####Point of Care testing, VBG Draw Site Right Radial [facility] Comment on above: Performed By: #### A BG ####Point of Care testing, Ventilator Mode AC [facility] Comment on above: Performed By: #### A BG ####Point of Care testing, Basic Metabolic Panelon Anion gap [Moles/Vol] 7.0 mmol/L Normal 6.0-15.0 [facility] Comment on above: Performed By: #### B MP, DIFF CBC ####[facility] [id number] [place] [address] [facility] Calcium [Mass/Vol] 7.7 mg/dL Low 8.6-10.3 [facility] Comment on above: Performed By: #### B MP, DIFF CBC ####[facility] [id number] [place] [address] [facility] Chloride [Moles/Vol] 99 mmol/L Normal 98-107 [facility] Comment on above: Performed By: #### B MP, DIFF CBC ####[facility] [place] [address] [facility] CO2 [Moles/Vol] 36.1 mmol/L High 21.0-31.0 [facility] Comment on above: Performed By: #### B MP, DIFF CBC ####[facility] [place] [address] [place] Creatinine [Mass/Vol] 0.39 mg/dL Low 0.70-1.30 [facility] Comment on above: Performed By: #### B MP, DIFF CBC ####[facility] [address] [place] [address] [place] Creatinine Clr Calc Pharmacy 278.31 [facility] Comment on above: Result Comment: PERF ORMED BY:[address] [place]osalbaAlfred[place], [place] [phone] MEDICAL ALEKSANDAR LAUREN M.D. Performed By: #### B MP, DIFF CBC ####[address] [place] [address] [facility] GFR/1.73 sq M.predicted MDRD (S/P/Bld) [Vol rate/Area] mL/min/{1.73_m2} [facility] Comment on above: Performed By: #### B MP, DIFF CBC ####[address] [place] [id number] [facility] Glucose [Mass/Vol] 128 mg/dL High 70-100 [facility] Comment on above: Result Comment: [place] Glucose Reference Range is dependent on time and content of last meal. Glucose of more than 200 mg/dL in a nonstressed, ambulatory subject supports the diagnosis of Diabetes Mellitus. ADA recommended reference range Performed By: #### B MP, DIFF CBC ####[address] [place] [address] [facility] Potassium [Moles/Vol] 4.1 mmol/L Normal 3.5-5.1 [facility] Comment on above: Performed By: #### B MP, DIFF CBC ####[address] [place] [address] [place] Sodium [Moles/Vol] 138 mmol/L Normal 136-145 [facility] Comment on above: Performed By: #### B MP, DIFF CBC ####[facility] [address] [place] [address] [facility] Urea nitrogen [Mass/Vol] 15 mg/dL Normal 7-25 [facility] Comment on above: Performed By: #### B MP, DIFF CBC ####[id number] [facility] Diff and CBCon 11-12-2022 Anisocytosis Ql (Bld) Slight Normal [facility] Comment on above: Performed By: #### B MP, DIFF CBC ####[id number] [facility] Erythrocyte distribution width (RBC) [Ratio] 13.9 % Normal 12.0-14.8 [facility] Comment on above: Performed By: #### B MP, DIFF CBC ####[id number] [facility] Hematocrit (Bld) [Volume fraction] 29.5 % Low 38.8-50.0 [facility] Comment on above: Performed By: #### B MP, DIFF CBC ####[address] Hemoglobin (Bld) [Mass/Vol] 9.9 g/dL Low 13.0-17.0 [facility] Comment on above: Performed By: #### B MP, DIFF CBC ####[address] Hypochromasia Moderate Normal [facility] Comment on above: Performed By: #### B MP, DIFF CBC ####[id number] [facility] Lymphocytes/100 WBC (Bld) 13 % Low 18-42 [facility] Comment on above: Performed By: #### B MP, DIFF CBC ####[id number] [facility] MCH (RBC) [Entitic mass] 30.5 pg Normal 27.5-35.2 [facility] Comment on above: Performed By: #### B MP, DIFF CBC ####[id number] [facility] MCV (RBC) [Entitic vol] 91.1 fL Normal 83.5-101 [facility] Comment on above: Performed By: #### B MP, DIFF CBC ####[address] [address] [facility] Mean Corpuscular HGB Conc 33.5 g/dL Normal 32.5-35.6 [facility] Comment on above: Performed By: #### B MP, DIFF CBC ####[address] [address] [facility] Metamyelocytes 3 % High 0-0 [facility] Comment on above: Performed By: #### B MP, DIFF CBC ####[address] [address] [facility] Monocytes/100 WBC (Bld) 4 % Normal 2-11 [facility] Comment on above: Performed By: #### B MP, DIFF CBC ####[address] [address] [facility] Myelocytes 3 % High 0-0 [facility] Comment on above: Performed By: #### B MP, DIFF CBC ####[address] [address] [facility] Platelet Estimate Normal Normal Normal [facility] Comment on above: Performed By: #### B MP, DIFF CBC ####[address] [address] [facility] Platelet mean volume (Bld) [Entitic vol] 7.1 fL Normal 6.6-10.1 [facility] Comment on above: Result Comment: PERF ORMED BY:[address] [place], [place] [phone] MEDICAL ALEKSANDAR LAUREN M.D. Performed By: #### B MP, DIFF CBC ####[address] [address] [facility] Platelet Morphology Normal Normal Normal [facility] Comment on above: Result Comment: PERF ORMED BY:[address] [place], [place] [phone] MEDICAL ALEKSANDAR LAUREN M.D. Performed By: #### B MP, DIFF CBC ####[address] [address] [facility] Platelets (Bld) [#/Vol] 375 10*3/uL Normal 150-450 [facility] Comment on above: Performed By: #### B MP, DIFF CBC ####[facility] [id number] RBC (Bld) [#/Vol] 3.24 10*6/uL Low 3.90-5.60 [facility] Comment on above: Performed By: #### B MP, DIFF CBC ####[facility] [id number] [facility] Segmented neutrophils/100 WBC (Bld) 78 % High 50-70 [facility] Comment on above: Performed By: #### B MP, DIFF CBC ####[facility] WBC (Bld) [#/Vol] 18.3 10*3/uL High 4.1-10.5 [facility] Comment on above: Performed By: #### B MP, DIFF CBC ####[address] Glucose Poct Glucometerson 0 11-12-2022 Commemt1 Glu2: Cleaned Meter Normal [facility] Comment on above: Result Comment: PERF ORMED BY:[address] [place], [place] [phone] MEDICAL DIRECTORNATI LAUREN M.D. Performed By: #### G BENJAMIN ####Point of Care testing, Glucose [Mass/Vol] 125 mg/dL Normal [facility] Comment on above: Result Comment: [place] Glucose Reference Range is dependent on time and content of last meal. Glucose of more than 200 mg/dL in a nonstressed, ambulatory subject supports the diagnosis of Diabetes Mellitus. Performed By: #### G LULS ####Point of Care testing, Glucose [Mass/Vol] 133 mg/dL Normal [facility] Comment on above: Result Comment: [place] Glucose Reference Range is dependent on time and content of last meal. Glucose of more than 200 mg/dL in a nonstressed, ambulatory subject supports the diagnosis of Diabetes Mellitus.PERFORMED BY:[address] [place], [place] [phone] MEDICAL DIRECTORNATI LAUREN M.D. Performed By: #### G LULS ####Point of Care testing, Commemt1 Glu2: Cleaned Meter [facility] Comment on above: Result Comment: PERF ORMED BY:[address] [place], [place] [phone] MEDICAL DIRECTORNATI LAUREN M.D. Performed By: #### G LULS ####Point of Care testing, Glucose [Mass/Vol] 122 mg/dL Normal [facility] Comment on above: Result Comment: [place] Glucose Reference Range is dependent on time and content of last meal. Glucose of more than 200 mg/dL in a nonstressed, ambulatory subject supports the diagnosis of Diabetes Mellitus. Performed By: #### G LULS ####Point of Care testing, Commemt1 Glu2: Cleaned Meter [facility] Comment on above: Result Comment: PERF ORMED BY:[address] [place], [place] [phone] MEDICAL DIRECTORNATI LAUREN M.D. Performed By: #### G LULS ####Point of Care testing, Glucose [Mass/Vol] 120 mg/dL Normal [facility] Comment on above: Result Comment: [place] om Glucose Reference Range is dependent on time and content of last meal. Glucose of more than 200 mg/dL in a nonstressed, ambulatory subject supports the diagnosis of Diabetes Mellitus. Performed By: #### G LULS ####Point of Care testing, XR chest 1V portableon 11-12 XR chest 1V portable [facility] XR chest 1V portable [facility] Arterial Blood Gason 023 ABG Base Excess 6.6 mmol/L High -3.0-3.0 [facility] Comment on above: Performed By: #### A BG ####Point of Care testing, ABG Frac Inspired O2 60 % Normal [facility] Comment on above: Performed By: #### A BG ####Point of Care testing, ABG Oxygen Content 6.3 mmol/L Low 6.6-9.7 [facility] Comment on above: Performed By: #### A BG ####Point of Care testing, ABG Oxygen Saturation 91.6 % Low 95.0-100.0 [facility] Comment on above: Performed By: #### A BG ####Point of Care testing, ABG PCO2 48.7 mm[Hg] High 35.0-45.0 [facility] Comment on above: Performed By: #### A BG ####Point of Care testing, ABG PEEP 8 [facility] Comment on above: Performed By: #### A BG ####Point of Care testing, ABG PH 7.43 Normal 7.35-7.45 [facility] Comment on above: Performed By: #### A BG ####Point of Care testing, ABG PO2 63.6 mm[Hg] Low 80.0-100.0 [facility] Comment on above: Performed By: #### A BG ####Point of Care testing, ABG TV 500 mL [facility] Comment on above: Performed By: #### A BG ####Point of Care testing, CO2 [Moles/Vol] 33.3 mmol/L High 23.0-27.0 [facility] Comment on above: Performed By: #### A BG ####Point of Care testing, HCO3 (Bld) [Moles/Vol] 31.8 mmol/L High 23.0-29.0 [facility] Comment on above: Performed By: #### A BG ####Point of Care testing, Respiratory Critical [facility] Comment on above: Result Comment: Crit ical Value called on: 11/11/2022 at 05:36PERFORMED BY:[address] [place], [place] [phone] MEDICAL DIRECTORNATI LAUREN M.D. Performed By: #### A BG ####Point of Care testing, Set Respiratory Rate 20 [facility] Comment on above: Performed By: #### A BG ####Point of Care testing, VBG Draw Site Right Radial [facility] Comment on above: Performed By: #### A BG ####Point of Care testing, Ventilator Mode AC [facility] Comment on above: Performed By: #### A BG ####Point of Care testing, Basic Metabolic Panelon Anion gap [Moles/Vol] 7.7 mmol/L Normal 6.0-15.0 [facility] Comment on above: Performed By: #### T RIG, BMP, DIFF CBC ####[facility] [address] [place] [address] [facility] Calcium [Mass/Vol] 7.5 mg/dL Low 8.6-10.3 [facility] Comment on above: Performed By: #### T RIG, BMP, DIFF CBC ####[address] [place] [address] [place] Chloride [Moles/Vol] 99 mmol/L Normal 98-107 [facility] Comment on above: Performed By: #### T RIG, BMP, DIFF CBC ####[address] [place] [address] [place] CO2 [Moles/Vol] 34.3 mmol/L High 21.0-31.0 [facility] Comment on above: Performed By: #### T RIG, BMP, DIFF CBC ####[facility] [id number] [place] [address] [place] Creatinine [Mass/Vol] 0.36 mg/dL Low 0.70-1.30 [facility] Comment on above: Performed By: #### T RIG, BMP, DIFF CBC ####[facility] [place] [address] [place] Creatinine Clr Calc Pharmacy 301.11 [facility] Comment on above: Performed By: #### T RIG, BMP, DIFF CBC ####[facility] [address] [place] [address] [facility] GFR/1.73 sq M.predicted MDRD (S/P/Bld) [Vol rate/Area] mL/min/{1.73_m2} Normal [facility] Comment on above: Performed By: #### T RIG BMP, DIFF CBC ####[facility] [place] [address] [facility] Glucose [Mass/Vol] 108 mg/dL High 70-100 [facility] Comment on above: Result Comment: [facility] Glucose Reference Range is dependent on time and content of last meal. Glucose of more than 200 mg/dL in a nonstressed, ambulatory subject supports the diagnosis of Diabetes Mellitus. ADA recommended reference range Performed By: #### T RIG BMP, DIFF CBC ####[address] [place] [address] [facility] Potassium [Moles/Vol] 4.0 mmol/L Normal 3.5-5.1 [facility] Comment on above: Performed By: #### T RIG BMP, DIFF CBC ####[place] [id number] [facility] Sodium [Moles/Vol] 137 mmol/L Normal 136-145 [facility] Comment on above: Performed By: #### T RIG BMP, DIFF CBC ####[address] [address] [facility] Urea nitrogen [Mass/Vol] 14 mg/dL Normal 7-25 [facility] Comment on above: Performed By: #### T RIG BMP, DIFF CBC ####[facility] [place] [address] [place] Diff and CBCon 11-11-2022 Anisocytosis Ql (Bld) Slight Normal [facility] Comment on above: Performed By: #### T RIG, BMP, DIFF CBC ####[address] [place] [address] [place] Eosinophils/100 WBC (Bld) 2 % Normal 1-3 [facility] Comment on above: Performed By: #### T RIG, BMP, DIFF CBC ####[address] Erythrocyte distribution width (RBC) [Ratio] 14.3 % Normal 12.0-14.8 [facility] Comment on above: Performed By: #### T RIG, BMP, DIFF CBC ####[address] Hematocrit (Bld) [Volume fraction] 31.2 % Low 38.8-50.0 [facility] Comment on above: Performed By: #### T RIG, BMP, DIFF CBC ####[address] Hemoglobin (Bld) [Mass/Vol] 10.2 g/dL Low 13.0-17.0 [facility] Comment on above: Performed By: #### T RIG, BMP, DIFF CBC ####[address] Hypochromasia Moderate Normal [facility] Comment on above: Performed By: #### T RIG, BMP, DIFF CBC ####[address] Lymphocytes/100 WBC (Bld) 11 % Low 18-42 [facility] Comment on above: Performed By: #### T RIG, BMP, DIFF CBC ####[address] MCH (RBC) [Entitic mass] 29.9 pg Normal 27.5-35.2 [facility] Comment on above: Performed By: #### T RIG, BMP, DIFF CBC ####[address] MCV (RBC) [Entitic vol] 91.8 fL Normal 83.5-101 [facility] Comment on above: Performed By: #### T RIG, BMP, DIFF CBC ####[address] Mean Corpuscular HGB Conc 32.6 g/dL Normal 32.5-35.6 [facility] Comment on above: Performed By: #### T RIG, BMP, DIFF CBC ####[facility] [place] [address] [facility] Metamyelocytes 2 % High 0-0 [facility] Comment on above: Performed By: #### T RIG, BMP, DIFF CBC ####[address] [address] [facility] Monocytes/100 WBC (Bld) 6 % Normal 2-11 [facility] Comment on above: Performed By: #### T RIG, BMP, DIFF CBC ####[address] [address] [facility] Myelocytes 1 % High 0-0 [facility] Comment on above: Performed By: #### T RIG, BMP, DIFF CBC ####[address] Platelet Estimate Normal Normal Normal [facility] Comment on above: Performed By: #### T RIG, BMP, DIFF CBC ####[address] Platelet mean volume (Bld) [Entitic vol] 6.8 fL Normal 6.6-10.1 [facility] Comment on above: Result Comment: PERF ORMED BY:[address] [place], [place] [phone] MEDICAL DIRECTORNATI LAUREN M.D. Performed By: #### T RIG, BMP, DIFF CBC ####[place] [id number] [facility] Platelet Morphology Normal Normal Normal [facility] Comment on above: Result Comment: PERF ORMED BY:[address] [place], [place] [phone] MEDICAL DIRECTORNATI LAUREN M.D. Performed By: #### T RIG, BMP, DIFF CBC ####[place] [id number] [facility] Platelets (Bld) [#/Vol] 401 10*3/uL Normal 150-450 [facility] Comment on above: Performed By: #### T RIG, BMP, DIFF CBC ####[facility] [place] [address] [facility] Polychromasia Slight Normal [facility] Comment on above: Performed By: #### T RIG BMP, DIFF CBC ####[address] [place] [address] [facility] RBC (Bld) [#/Vol] 3.40 10*6/uL Low 3.90-5.60 [facility] Comment on above: Performed By: #### T RIG BMP, DIFF CBC ####[place] [id number] [facility] Segmented neutrophils/100 WBC (Bld) 79 % High 50-70 [facility] Comment on above: Performed By: #### T BLACK BMP, DIFF CBC ####[address] [place] [id number] [facility] WBC (Bld) [#/Vol] 19.1 10*3/uL High 4.1-10.5 [facility] Comment on above: Performed By: #### T BLACK BMP, DIFF CBC ####[place] [id number] [facility] Glucose Poct Glucometerson 0 11-11-2022 Glucose [Mass/Vol] 156 mg/dL Normal [facility] Comment on above: Result Comment: [facility] Glucose Reference Range is dependent on time and content of last meal. Glucose of more than 200 mg/dL in a nonstressed, ambulatory subject supports the diagnosis of Diabetes Mellitus.PERFORMED BY:[address] [place], [place] [phone] MEDICAL ALEKSANDAR LAUREN M.D. Performed By: #### G LULS ####Point of Care testing, Commemt1 Glu2: Cleaned Meter Normal [facility] Comment on above: Performed By: #### G LULS ####Point of Care testing, Commemt2 SLIDING SCALE COVERA Normal [facility] Comment on above: Result Comment: PERF ORMED BY:[address] [place], [place] [phone] MEDICAL DIRECTORNATI LAUREN M.D. Performed By: #### G LULS ####Point of Care testing, Glucose [Mass/Vol] 158 mg/dL Normal [facility] Comment on above: Result Comment: [place] om Glucose Reference Range is dependent on time and content of last meal. Glucose of more than 200 mg/dL in a nonstressed, ambulatory subject supports the diagnosis of Diabetes Mellitus. Performed By: #### G LULS ####Point of Care testing, Glucose [Mass/Vol] 97 mg/dL Normal [facility] Comment on above: Result Comment: [place] om Glucose Reference Range is dependent on time and content of last meal. Glucose of more than 200 mg/dL in a nonstressed, ambulatory subject supports the diagnosis of Diabetes Mellitus.PERFORMED BY:[address] [place], [place] [phone] MEDICAL DIRECTORNATI LAUREN M.D. Performed By: #### G LULS ####Point of Care testing, Magnesiumon 11-11-2022 Magnesium [Mass/Vol] 2.2 mg/dL Normal 1.9-2.7 [facility] Comment on above: Order Comment: Comme nt please run off blood drawn this morning Result Comment: PERF ORMED BY:[place] [address] [place], [place] [phone] MEDICAL DIRECTORNATI LAUREN M.D. Performed By: #### M G ####[facility] [place] [address] [facility] No Panel InformationOrdered By: Rubi Ramos on 11-11-2022 Bedside Glucose #2 Comment Sliding scale covera [facility] Triglycerideson 11-11-2022 Triglyceride [Mass/Vol] 143 mg/dL Normal 0-149 [facility] Comment on above: Result Comment: TRIG ATP III CLASSIFICATION TRIG less than 150 mg/dL Normal TRIG 150-199 mg/dL Borderline high TRIG 200-500 mg/dL High TRIG greater than 500 mg/dL Very high Standard traceable to the Center for Disease Conrtrol and Prevention (CDC) test method.PERFORMED BY:[place] [address] [place], [place] [phone] MEDICAL DIRECTORNATI LAUREN M.D. Performed By: #### T RIG, BMP, DIFF CBC ####[facility] [address] [place] [address] [facility] XR chest 1V portableon 11-11 XR chest 1V portable Normal [facility] Arterial Blood Gason 023 ABG Base Excess 8.6 mmol/L High -3.0-3.0 [facility] Comment on above: Performed By: #### A BG ####Point of Care testing, ABG Frac Inspired O2 40 % [facility] Comment on above: Performed By: #### A BG ####Point of Care testing, ABG Oxygen Content 6.6 mmol/L Normal 6.6-9.7 [facility] Comment on above: Performed By: #### A BG ####Point of Care testing, ABG Oxygen Saturation 92.0 % Low 95.0-100.0 [facility] Comment on above: Performed By: #### A BG ####Point of Care testing, ABG PCO2 47.0 mm[Hg] High 35.0-45.0 [facility] Comment on above: Performed By: #### A BG ####Point of Care testing, ABG PEEP 6 [facility] Comment on above: Performed By: #### A BG ####Point of Care testing, ABG PH 7.47 High 7.35-7.45 [facility] Comment on above: Performed By: #### A BG ####Point of Care testing, ABG PO2 61.7 mm[Hg] Low 80.0-100.0 [facility] Comment on above: Performed By: #### A BG ####Point of Care testing, ABG TV 500 mL [facility] Comment on above: Performed By: #### A BG ####Point of Care testing, CO2 [Moles/Vol] 34.8 mmol/L High 23.0-27.0 [facility] Comment on above: Performed By: #### A BG ####Point of Care testing, HCO3 (Bld) [Moles/Vol] 33.4 mmol/L High 23.0-29.0 [facility] Comment on above: Performed By: #### A BG ####Point of Care testing, Respiratory Critical [facility] Comment on above: Result Comment: Crit ical Value called on: 11/10/2022 at 05:16PERFORMED BY:[id number] [place], [place] [phone] MEDICAL DIRECTORNATI LAUREN M.D. Performed By: #### A BG ####Point of Care testing, Set Respiratory Rate 20 [facility] Comment on above: Performed By: #### A BG ####Point of Care testing, VBG Draw Site Left Brachial [facility] Comment on above: Performed By: #### A BG ####Point of Care testing, Ventilator Mode AC [facility] Comment on above: Performed By: #### A BG ####Point of Care testing, Basic Metabolic Panel Anion gap [Moles/Vol] 7.5 mmol/L Normal 6.0-15.0 [facility] Comment on above: Performed By: #### D IFF CBC, BMP ####[facility] Iyq[address] [place] [address] [place] Calcium [Mass/Vol] 7.5 mg/dL Low 8.6-10.3 [facility] Comment on above: Performed By: #### D IFF CBC, BMP ####[facility] Qen6586 [place] [address] [place] Chloride [Moles/Vol] 100 mmol/L Normal 98-107 [facility] Comment on above: Performed By: #### D IFF CBC, BMP ####[facility] Yic2695 [place] [address] [place] CO2 [Moles/Vol] 34.4 mmol/L High 21.0-31.0 [facility] Comment on above: Performed By: #### D IFF CBC, BMP ####[facility] Wir[address]94 [place] [address] [place] Creatinine [Mass/Vol] 0.40 mg/dL Low 0.70-1.30 [facility] Comment on above: Performed By: #### D IFF CBC, BMP ####[facility] Luh[address] [place] [address] [place] Creatinine Clr Calc Pharmacy 271.94 [facility] Comment on above: Result Comment: PERF ORMED BY:[facility] [place] [place], [place] [phone] MEDICAL DIRECTORNATI LAUREN M.D. Performed By: #### D IFF CBC, BMP ####[facility] Llo[address] [place] [address] [place] GFR/1.73 sq M.predicted MDRD (S/P/Bld) [Vol rate/Area] mL/min/{1.73_m2} [facility] Comment on above: Performed By: #### D IFF CBC, BMP ####[facility] Igw[address]77 [place] [address] [place] Glucose [Mass/Vol] 111 mg/dL High 70-100 [facility] Comment on above: Result Comment: [place] Glucose Reference Range is dependent on time and content of last meal. Glucose of more than 200 mg/dL in a nonstressed, ambulatory subject supports the diagnosis of Diabetes Mellitus. ADA recommended reference range Performed By: #### D IFF CBC, BMP ####[facility] Rbb6759 [place] [address] [place] Potassium [Moles/Vol] 3.9 mmol/L Normal 3.5-5.1 [facility] Comment on above: Performed By: #### D IFF CBC, BMP ####[facility] Fwq[address]881 [place] [address] [place] Sodium [Moles/Vol] 138 mmol/L Normal 136-145 [facility] Comment on above: Performed By: #### D IFF CBC, BMP ####[place] [id number] [facility] Urea nitrogen [Mass/Vol] 19 mg/dL Normal 7-25 [facility] Comment on above: Performed By: #### D IFF CBC, BMP ####[place] [id number] [facility] Blood Cultureon 11-10-2022 Bacteria identified Cx Nom (Bld) NO GROWTH 5 DAYS PERFORMED BY: [facility] [address] [place] [address] PATHOLOGIST SALES [employer] TEAM LEADER NATI LAUREN M.D. Normal [facility] Comment on above: Performed By: #### C UBLD ####[address] Diff and CBCon 11-10-2022 Erythrocyte distribution width (RBC) [Ratio] 13.9 % Normal 12.0-14.8 [facility] Comment on above: Performed By: #### D IFF CBC, BMP ####[address] Hematocrit (Bld) [Volume fraction] 30.5 % Low 38.8-50.0 [facility] Comment on above: Performed By: #### D IFF CBC, BMP ####[address] Hemoglobin (Bld) [Mass/Vol] 10.0 g/dL Low 13.0-17.0 [facility] Comment on above: Performed By: #### D IFF CBC, BMP ####[address] Hypochromasia Moderate Normal [facility] Comment on above: Performed By: #### D IFF CBC, BMP ####[place] [id number] [facility] MCH (RBC) [Entitic mass] 29.9 pg Normal 27.5-35.2 [facility] Comment on above: Performed By: #### D IFF CBC, BMP ####[address] MCV (RBC) [Entitic vol] 91.2 fL Normal 83.5-101 [facility] Comment on above: Performed By: #### D IFF CBC, BMP ####[place] [address] [place] [address] [facility] Mean Corpuscular HGB Conc 32.8 g/dL Normal 32.5-35.6 [facility] Comment on above: Performed By: #### D IFF CBC, BMP ####[address] [address] [facility] Platelet Estimate Normal Normal Normal [facility] Comment on above: Performed By: #### D IFF CBC, BMP ####[place] [id number] [place] [id number] [facility] Platelet mean volume (Bld) [Entitic vol] 6.9 fL Normal 6.6-10.1 [facility] Comment on above: Result Comment: PERF ORMED BY:[address] [place], [place] [phone] MEDICAL DIRECTORNATI LAUREN M.D. Performed By: #### D IFF CBC, BMP ####[place] [id number] [facility] Platelet Morphology Normal Normal Normal [facility] Comment on above: Result Comment: PERF ORMED BY:[address] [place], [place] [phone] MEDICAL DIRECTORNATI LAUREN M.D. Performed By: #### D IFF CBC, BMP ####[address] [address] [facility] Platelets (Bld) [#/Vol] 375 10*3/uL Normal 150-450 [facility] Comment on above: Performed By: #### D IFF CBC, BMP ####[place] [id number] [facility] RBC (Bld) [#/Vol] 3.34 10*6/uL Low 3.90-5.60 [facility] Comment on above: Performed By: #### D IFF CBC, BMP ####[facility] Kje[address]255 [place] [address] [facility] Stomatocytes Slight Normal [facility] Comment on above: Performed By: #### D IFF CBC, BMP ####[facility] Wgc0790 [place] [address] [facility] Target Cells Slight Normal [facility] Comment on above: Performed By: #### D IFF CBC, BMP ####[facility] Rgr0627 [place] [address] [facility] WBC (Bld) [#/Vol] 14.4 10*3/uL High 4.1-10.5 [facility] Comment on above: Performed By: #### D IFF CBC, BMP ####[facility] [address] [place] [address] [facility] Dipstick and Microscopicon 0 11-10-2022 Appearance (U) Clear Normal Clear [facility] Comment on above: Order Comment: Name Collection Type:: Jones Catheter Performed By: #### A DDONUAPLUS ####[address] [address] [facility] Bacteria,Urine None Seen Normal None Seen [facility] Comment on above: Order Comment: Name Collection Type:: Jones Catheter Performed By: #### A DDONUAPLUS ####[facility] [address] [place] [address] [facility] Bilirubin,Urine Negative Normal Negative [facility] Comment on above: Order Comment: Name Collection Type:: Jones Catheter Performed By: #### A DDONUAPLUS ####[facility] Woe5467 [place] [address] [facility] Color (U) Yellow Normal Yellow [facility] Comment on above: Order Comment: Name Collection Type:: Jones Catheter Performed By: #### A DDONUAPLUS ####[facility] [address] [place] [address] [place] Glucose Ql (U) Normal Normal Normal [facility] Comment on above: Order Comment: Name Collection Type:: Jones Catheter Performed By: #### A DDONUAPLUS ####[address] [address] [facility] Hyaline Casts,Urine None Seen Normal 0-8 [facility] Comment on above: Order Comment: Name Collection Type:: Jones Catheter Result Comment: PERF ORMED BY:[place] [address] [place] [place], [place] [phone] MEDICAL DIRECTORNATI LAUREN M.D. Performed By: #### A DDONUAPLUS ####[address] [address] [facility] Ketones Ql (U) Negative Normal Negative [facility] Comment on above: Order Comment: Name Collection Type:: Jones Catheter Performed By: #### A DDONUAPLUS ####[address] [address] [facility] Leukocyte esterase Test strip Ql (U) Negative Normal Negative [facility] Comment on above: Order Comment: Name Collection Type:: Jones Catheter Performed By: #### A DDONUAPLUS ####[address] [address] [facility] Nitrite,Urine Negative Normal Negative [facility] Comment on above: Order Comment: Name Collection Type:: Jones Catheter Performed By: #### A DDONUAPLUS ####[address] [address] [facility] Occult Blood,Urine Trace High Negative [facility] Comment on above: Order Comment: Name Collection Type:: Jones Catheter Result Comment: PERF ORMED BY:[place] [address] [place], [place] [phone] MEDICAL ALEKSANDAR LAUREN M.D. Performed By: #### A DDONUAPLUS ####[address] [address] [facility] pH (U) 7.5 [pH] Normal 5.0-9.0 [facility] Comment on above: Order Comment: Name Collection Type:: Jones Catheter Performed By: #### A DDONUAPLUS ####[address] [address] [facility] Protein,Urine Negative Normal Negative [facility] Comment on above: Order Comment: Name Collection Type:: Jones Catheter Performed By: #### A DDONUAPLUS ####[address] [address] [facility] RBC,Urine 10-19 High 0-4 [facility] Comment on above: Order Comment: Name Collection Type:: Jones Catheter Performed By: #### A DDONUAPLUS ####[address] [address] [facility] Specificy [place],Urine 1.016 Normal 1.001-1.03 0 [facility] Comment on above: Order Comment: Name Collection Type:: Jones Catheter Performed By: #### A DDONUAPLUS ####[address] [address] [facility] Squamous Epithelial Cell,Urine 0-1 Normal 0-2 [facility] Comment on above: Order Comment: Name Collection Type:: Jones Catheter Performed By: #### A DDONUAPLUS ####[address] [address] [facility] Urobilinogen,Urine Normal Normal Normal [facility] Comment on above: Order Comment: Name Collection Type:: Jones Catheter Performed By: #### A DDONUAPLUS ####[address] [address] [facility] WBC,Urine 3-4 Normal 0-4 [facility] Comment on above: Order Comment: Name Collection Type:: Jones Catheter Performed By: #### A DDONUAPLUS ####[address] [address] [facility] Glucose Poct Glucometerson 0 11-10-2022 Glucose [Mass/Vol] 147 mg/dL Normal [facility] Comment on above: Result Comment: [facility] Glucose Reference Range is dependent on time and content of last meal. Glucose of more than 200 mg/dL in a nonstressed, ambulatory subject supports the diagnosis of Diabetes Mellitus.PERFORMED BY:[address] [place], [place] [phone] MEDICAL DIRECTORNATI LAUREN M.D. Performed By: #### G LULS ####Point of Care testing, Glucose [Mass/Vol] 129 mg/dL Normal [facility] Comment on above: Result Comment: [facility] Glucose Reference Range is dependent on time and content of last meal. Glucose of more than 200 mg/dL in a nonstressed, ambulatory subject supports the diagnosis of Diabetes Mellitus.PERFORMED BY:[address] [place], [place] [phone] MEDICAL DIRECTORNATI LAUREN M.D. Performed By: #### G LULS ####Point of Care testing, Glucose [Mass/Vol] 148 mg/dL Normal [facility] Comment on above: Result Comment: [facility] Glucose Reference Range is dependent on time and content of last meal. Glucose of more than 200 mg/dL in a nonstressed, ambulatory subject supports the diagnosis of Diabetes Mellitus.PERFORMED BY:[address] [place]fred[place], [place] [phone] MEDICAL DIRECTORNATI LAUREN M.D. Performed By: #### G LULS ####Point of Care testing, XR chest 1V portableon 11-10 XR chest 1V portable Normal [facility] XR chest 1V portable Normal [facility] Arterial Blood Gason 023 ABG Base Excess 5.4 mmol/L High -3.0-3.0 [facility] Comment on above: Performed By: #### A BG ####Point of Care testing, ABG Frac Inspired O2 40 % Normal [facility] Comment on above: Performed By: #### A BG ####Point of Care testing, ABG Oxygen Content 6.9 mmol/L Normal 6.6-9.7 [facility] Comment on above: Performed By: #### A BG ####Point of Care testing, ABG Oxygen Saturation 95.7 % Normal 95.0-100.0 [facility] Comment on above: Performed By: #### A BG ####Point of Care testing, ABG PCO2 52.4 mm[Hg] Off scale high 35.0-45.0 [facility] Comment on above: Performed By: #### A BG ####Point of Care testing, ABG PEEP 9 [facility] Comment on above: Performed By: #### A BG ####Point of Care testing, ABG PH 7.40 Normal 7.35-7.45 [facility] Comment on above: Performed By: #### A BG ####Point of Care testing, ABG PO2 82.4 mm[Hg] Normal 80.0-100.0 [facility] Comment on above: Performed By: #### A BG ####Point of Care testing, ABG TV 500 mL [facility] Comment on above: Performed By: #### A BG ####Point of Care testing, CO2 [Moles/Vol] 33.0 mmol/L High 23.0-27.0 [facility] Comment on above: Performed By: #### A BG ####Point of Care testing, HCO3 (Bld) [Moles/Vol] 31.4 mmol/L High 23.0-29.0 [facility] Comment on above: Performed By: #### A BG ####Point of Care testing, Respiratory Critical [facility] Comment on above: Result Comment: Crit ical Value called on: 11/09/2022 at 05:00PERFORMED BY:[place] [address] [place], [place] [phone] MEDICAL DIRECTORNATI LAUREN M.D. Performed By: #### A BG ####Point of Care testing, Set Respiratory Rate 20 [facility] Comment on above: Performed By: #### A BG ####Point of Care testing, VBG Draw Site Right Radial [facility] Comment on above: Performed By: #### A BG ####Point of Care testing, Ventilator Mode AC [facility] Comment on above: Performed By: #### A BG ####Point of Care testing, Basic Metabolic Panel Anion gap [Moles/Vol] 9.0 mmol/L Normal 6.0-15.0 [facility] Comment on above: Performed By: #### B MP, CBC ####[address] [address] [facility] Calcium [Mass/Vol] 7.7 mg/dL Low 8.6-10.3 [facility] Comment on above: Performed By: #### B MP, CBC ####[address] [address] [facility] Chloride [Moles/Vol] 99 mmol/L Normal 98-107 [facility] Comment on above: Performed By: #### B MP, CBC ####[place] [id number] [facility] CO2 [Moles/Vol] 32.5 mmol/L High 21.0-31.0 [facility] Comment on above: Performed By: #### B MP, CBC ####[address] [address] [facility] Creatinine [Mass/Vol] 0.40 mg/dL Low 0.70-1.30 [facility] Comment on above: Performed By: #### B MP, CBC ####[place] [id number] [facility] Creatinine Clr Calc Pharmacy 270.64 [facility] Comment on above: Result Comment: PERF ORMED BY:[address] [place], [place] [phone] MEDICAL ALEKSANDAR LAUREN M.D. Performed By: #### B MP, CBC ####[address] [address] [place] GFR/1.73 sq M.predicted MDRD (S/P/Bld) [Vol rate/Area] mL/min/{1.73_m2} [facility] Comment on above: Performed By: #### B MP, CBC ####[address] [address] [facility] Glucose [Mass/Vol] 160 mg/dL High 70-100 [facility] Comment on above: Result Comment: [place] Glucose Reference Range is dependent on time and content of last meal. Glucose of more than 200 mg/dL in a nonstressed, ambulatory subject supports the diagnosis of Diabetes Mellitus. ADA recommended reference range Performed By: #### B MP, CBC ####[facility] [place] [address] [facility] Potassium [Moles/Vol] 4.5 mmol/L Normal 3.5-5.1 [facility] Comment on above: Performed By: #### B MP, CBC ####[address] [address] [facility] Sodium [Moles/Vol] 136 mmol/L Normal 136-145 [facility] Comment on above: Performed By: #### B MP, CBC ####[address] [address] [facility] Urea nitrogen [Mass/Vol] 19 mg/dL Normal 7-25 [facility] Comment on above: Performed By: #### B MP, CBC ####[address] [address] [facility] Complete Blood Count Auto Di ffon 11-09-2022 Basophils (Bld) [#/Vol] 0.0 10*3/uL Normal 0.0-0.2 [facility] Comment on above: Result Comment: PERF ORMED BY:[address] [place], [place] [phone] MEDICAL DIRECTORNATI LAUREN M.D. Performed By: #### B MP, CBC ####[place] [id number] [facility] Basophils/100 WBC (Bld) 0.1 % Normal . [facility] Comment on above: Performed By: #### B MP, CBC ####[address] [address] [facility] Eosinophils (Bld) [#/Vol] 0.0 10*3/uL Normal 0.0-0.45 [facility] Comment on above: Performed By: #### B MP, CBC ####[place] [id number] [facility] Eosinophils/100 WBC (Bld) 0.0 % Normal . [facility] Comment on above: Performed By: #### B MP, CBC ####[place] [id number] [facility] Erythrocyte distribution width (RBC) [Ratio] 14.2 % Normal 12.0-14.8 [facility] Comment on above: Performed By: #### B MP, CBC ####[place] [id number] [facility] Hematocrit (Bld) [Volume fraction] 31.0 % Low 38.8-50.0 [facility] Comment on above: Performed By: #### B MP, CBC ####[place] [id number] [facility] Hemoglobin (Bld) [Mass/Vol] 10.3 g/dL Low 13.0-17.0 [facility] Comment on above: Performed By: #### B MP, CBC ####[address] Lymphocytes (Bld) [#/Vol] 0.7 10*3/uL Low 1.00-4.8 [facility] Comment on above: Performed By: #### B MP, CBC ####[place] [id number] [facility] Lymphocytes/100 WBC (Bld) 4.6 % Normal . [facility] Comment on above: Performed By: #### B MP, CBC ####[place] [id number] [facility] MCH (RBC) [Entitic mass] 30.4 pg Normal 27.5-35.2 [facility] Comment on above: Performed By: #### B MP, CBC ####[place] [id number] [facility] MCV (RBC) [Entitic vol] 91.1 fL Normal 83.5-101 [facility] Comment on above: Performed By: #### B MP, CBC ####[facility] [place] [address] [facility] Mean Corpuscular HGB Conc 33.4 g/dL Normal 32.5-35.6 [facility] Comment on above: Performed By: #### B MP, CBC ####[facility] [place] [address] [facility] Monocytes (Bld) [#/Vol] 0.8 10*3/uL Normal 0.0-0.8 [facility] Comment on above: Performed By: #### B MP, CBC ####[address] [address] [facility] Monocytes/100 WBC (Bld) 5.2 % Normal . [facility] Comment on above: Performed By: #### B MP, CBC ####[address] [address] [facility] Neutrophils (Bld) [#/Vol] 13.1 10*3/uL High 1.8-7.7 [facility] Comment on above: Performed By: #### B MP, CBC ####[address] [address] [facility] Neutrophils/100 WBC (Bld) 90.1 % Normal . [facility] Comment on above: Performed By: #### B MP, CBC ####[facility] [place] [address] [facility] NRBC% 0.1 /100{WBC} Normal 0-0.5 [facility] Comment on above: Performed By: #### B MP, CBC ####[address] [address] [facility] Platelet mean volume (Bld) [Entitic vol] 7.0 fL Normal 6.6-10.1 [facility] Comment on above: Performed By: #### B MP, CBC ####[address] [address] [facility] Platelets (Bld) [#/Vol] 408 10*3/uL Normal 150-450 [facility] Comment on above: Performed By: #### B MP, CBC ####[facility] Pfb[address]327 [place] [address] [facility] RBC (Bld) [#/Vol] 3.40 10*6/uL Low 3.90-5.60 [facility] Comment on above: Performed By: #### B MP, CBC ####[facility] [place] [address] [facility] WBC (Bld) [#/Vol] 14.6 10*3/uL High 4.1-10.5 [facility] Comment on above: Performed By: #### B MP, CBC ####[id number] [place] [address] [facility] Glucose Poct Glucometerson 0 - Commemt1 Glu2: Cleaned Meter [facility] Comment on above: Result Comment: PERF ORMED BY:[address] [place], [place] [phone] MEDICAL DIRECTORNATI LAUREN M.D. Performed By: #### G LULS ####Point of Care testing, Glucose [Mass/Vol] 122 mg/dL Normal [facility] Comment on above: Result Comment: [facility] Glucose Reference Range is dependent on time and content of last meal. Glucose of more than 200 mg/dL in a nonstressed, ambulatory subject supports the diagnosis of Diabetes Mellitus. Performed By: #### G LULS ####Point of Care testing, Commemt1 Glu2: Cleaned Meter Normal [facility] Comment on above: Result Comment: PERF ORMED BY:[address] [place], [place] [phone] MEDICAL DIRECTORNATI LAUREN M.D. Performed By: #### G LULS ####Point of Care testing, Glucose [Mass/Vol] 176 mg/dL Normal [facility] Comment on above: Result Comment: [facility] Glucose Reference Range is dependent on time and content of last meal. Glucose of more than 200 mg/dL in a nonstressed, ambulatory subject supports the diagnosis of Diabetes Mellitus. Performed By: #### G LULS ####Point of Care testing, Commemt1 Glu2: Cleaned Meter [facility] Comment on above: Result Comment: PERF ORMED BY:[address] [address] [address] [place] [place], [place] [phone] MEDICAL DIRECTORNATI LAUREN M.D. Performed By: #### G LULS ####Point of Care testing, Glucose [Mass/Vol] 149 mg/dL Normal [facility] Comment on above: Result Comment: [place] [facility] Glucose Reference Range is dependent on time and content of last meal. Glucose of more than 200 mg/dL in a nonstressed, ambulatory subject supports the diagnosis of Diabetes Mellitus. Performed By: #### G LULS ####Point of Care testing, Commemt1 Glu2: Cleaned Meter [facility] Comment on above: Result Comment: PERF ORMED BY:[address] [place], [place] [phone] MEDICAL DIRECTORNATI LAUREN M.D. Performed By: #### G LULS ####Point of Care testing, Glucose [Mass/Vol] 159 mg/dL Normal [facility] Comment on above: Result Comment: [place] [facility] Glucose Reference Range is dependent on time and content of last meal. Glucose of more than 200 mg/dL in a nonstressed, ambulatory subject supports the diagnosis of Diabetes Mellitus. Performed By: #### G LULS ####Point of Care testing, Triglycerideson 11-09-2022 Triglyceride [Mass/Vol] 392 mg/dL High 0-149 [facility] Comment on above: Result Comment: TRIG ATP III CLASSIFICATION TRIG less than 150 mg/dL Normal TRIG 150-199 mg/dL Borderline high TRIG 200-500 mg/dL High TRIG greater than 500 mg/dL Very high Standard traceable to the Center for Disease Conrtrol and Prevention (CDC) test method.PERFORMED BY:[address] [address] [address] [place], [place] [phone] MEDICAL ALEKSANDAR LAUREN M.D. Performed By: #### T RIG ####[address] [address] [place] [address] [facility] XR chest 1V portableon 11-09 XR chest 1V portable Normal [facility] XR chest 1V portable [facility] Arterial Blood Gason 023 ABG Base Excess 4.1 mmol/L High -3.0-3.0 [facility] Comment on above: Performed By: #### A BG ####Point of Care testing, ABG Frac Inspired O2 80 % [facility] Comment on above: Performed By: #### A BG ####Point of Care testing, ABG Oxygen Content 7.5 mmol/L Normal 6.6-9.7 [facility] Comment on above: Performed By: #### A BG ####Point of Care testing, ABG Oxygen Saturation 97.9 % Normal 95.0-100.0 [facility] Comment on above: Performed By: #### A BG ####Point of Care testing, ABG PCO2 55.6 mm[Hg] Off scale high 35.0-45.0 [facility] Comment on above: Performed By: #### A BG ####Point of Care testing, ABG PEEP 12 [facility] Comment on above: Performed By: #### A BG ####Point of Care testing, ABG PH 7.36 Normal 7.35-7.45 [facility] Comment on above: Performed By: #### A BG ####Point of Care testing, ABG PO2 111.2 mm[Hg] High 80.0-100.0 [facility] Comment on above: Performed By: #### A BG ####Point of Care testing, ABG TV 500 mL [facility] Comment on above: Performed By: #### A BG ####Point of Care testing, CO2 [Moles/Vol] 32.5 mmol/L High 23.0-27.0 [facility] Comment on above: Performed By: #### A BG ####Point of Care testing, HCO3 (Bld) [Moles/Vol] 30.8 mmol/L High 23.0-29.0 [facility] Comment on above: Performed By: #### A BG ####Point of Care testing, Respiratory Critical [facility] Comment on above: Result Comment: Crit ical Value called on: 11/08/2022 at 05:00PERFORMED BY:[facility] NGOZIRosalbaAlfreditoALEHOGANSBUR[place], [place] [phone] MEDICAL DIRECTORNATI LAUREN M.D. Performed By: #### A BG ####Point of Care testing, Set Respiratory Rate 20 [facility] Comment on above: Performed By: #### A BG ####Point of Care testing, VBG Draw Site Left Radial [facility] Comment on above: Performed By: #### A BG ####Point of Care testing, Ventilator Mode AC [facility] Comment on above: Performed By: #### A BG ####Point of Care testing, Basic Metabolic Panelon Anion gap [Moles/Vol] 10.0 mmol/L Normal 6.0-15.0 [facility] Comment on above: Performed By: #### B MP, SCAN CBC ####[facility] [id number] [place] [address] [facility] Calcium [Mass/Vol] 8.2 mg/dL Low 8.6-10.3 [facility] Comment on above: Performed By: #### B MP, SCAN CBC ####[facility] [address] [place] [address] [place] Chloride [Moles/Vol] 99 mmol/L Normal 98-107 [facility] Comment on above: Performed By: #### B MP, SCAN CBC ####[facility] [id number] [place] [address] [place] CO2 [Moles/Vol] 29.8 mmol/L Normal 21.0-31.0 [facility] Comment on above: Performed By: #### B MP, SCAN CBC ####[facility] [id number] [place] [address] [place] Creatinine [Mass/Vol] 0.43 mg/dL Low 0.70-1.30 [facility] Comment on above: Performed By: #### B MP, SCAN CBC ####[facility] [id number] [place] [address] [place] Creatinine Clr Calc Pharmacy 251.76 [facility] Comment on above: Result Comment: PERF ORMED BY:[address] [place], [place] [phone] MEDICAL DIRECTORNATI LAUREN M.D. Performed By: #### B MP, SCAN CBC ####[facility] [id number] [place] [address] [place] GFR/1.73 sq M.predicted MDRD (S/P/Bld) [Vol rate/Area] mL/min/{1.73_m2} [facility] Comment on above: Performed By: #### B MP, SCAN CBC ####[facility] [id number] [place] [address] [place] Glucose [Mass/Vol] 140 mg/dL High 70-100 [facility] Comment on above: Result Comment: [facility] Glucose Reference Range is dependent on time and content of last meal. Glucose of more than 200 mg/dL in a nonstressed, ambulatory subject supports the diagnosis of Diabetes Mellitus. ADA recommended reference range Performed By: #### B MP, SCAN CBC ####[facility] [id number] [place] [address] [place] Potassium [Moles/Vol] 4.8 mmol/L Normal 3.5-5.1 [facility] Comment on above: Performed By: #### B MP, SCAN CBC ####[facility] Otz[address] [place] [address] [place] Sodium [Moles/Vol] 134 mmol/L Low 136-145 [facility] Comment on above: Performed By: #### B MP, SCAN CBC ####[facility] Goj[address] [place] [address] [facility] Urea nitrogen [Mass/Vol] 22 mg/dL Normal 7-25 [facility] Comment on above: Performed By: #### B MP, SCAN CBC ####[facility] [id number] [place] [address] [facility] Glucose Poct Glucometerson 0 11-08-2022 Glucose [Mass/Vol] 135 mg/dL Normal [facility] Comment on above: Result Comment: [facility] Glucose Reference Range is dependent on time and content of last meal. Glucose of more than 200 mg/dL in a nonstressed, ambulatory subject supports the diagnosis of Diabetes Mellitus.PERFORMED BY:[address] [address] [place], [place] [phone] MEDICAL DIRECTORNATI LAUREN M.D. Performed By: #### G LULS ####Point of Care testing, HIV 1/O/2 Antigen/Antibodyon 11-08-2022 HIV Screen 4th Generation Non-Reactive Normal Non Reactive [facility] Comment on above: Order Comment: Dr. christopher gil putting in a chest tube Result Comment: HIV Negative HIV-1/HIV-2 antibodies and HIV-1 p24 antigen were NOT detected. There is no laboratory evidence of HIV infection. Performed at: [facility] [address] [place], [place] [id number] Harness Preparer: Crow Frost PhD, Phone: [phone] BY:[address] [place], [place] [phone] MEDICAL DIRECTORNATI LAUREN M.D. Performed By: #### H IV SCREEN ####[facility] , HIV 1 and HIV-2 antibody ass ay with HIV-1 p24 antigen detectionOrdered By: Sanjay Holt on 11-08-2022 HIV 1+2 Ab+HIV1 p24 Ag IA Ql Non-Reactive Non Reactive [facility] Comment on above: HIV NegativeHIV-1/HI V-2 antibodies and HIV-1 p24 antigen were NOTdetected. There is no laboratory evidence of HIV infection.Performed at: [facility] [address] [id number] Director: Crow Frost PhD, Phone: [phone] Scan and CBCon 11-08-2022 Basophils (Bld) [#/Vol] 0.0 10*3/uL Normal 0.0-0.2 [facility] Comment on above: Performed By: #### B MP, SCAN CBC ####[address] Basophils/100 WBC (Bld) 0.2 % Normal . [facility] Comment on above: Performed By: #### B MP, SCAN CBC ####[address] Eosinophils (Bld) [#/Vol] 0.0 10*3/uL Normal 0.0-0.45 [facility] Comment on above: Performed By: #### B MP, SCAN CBC ####[address] Eosinophils/100 WBC (Bld) 0.0 % Normal . [facility] Comment on above: Performed By: #### B MP, SCAN CBC ####[address] Erythrocyte distribution width (RBC) [Ratio] 14.0 % Normal 12.0-14.8 [facility] Comment on above: Performed By: #### B MP, SCAN CBC ####[address] Hematocrit (Bld) [Volume fraction] 32.9 % Low 38.8-50.0 [facility] Comment on above: Performed By: #### B MP, SCAN CBC ####[address] Hemoglobin (Bld) [Mass/Vol] 10.7 g/dL Low 13.0-17.0 [facility] Comment on above: Performed By: #### B MP, SCAN CBC ####[address] Hypochromasia Moderate Normal [facility] Comment on above: Performed By: #### B MP, SCAN CBC ####[address] Lymphocytes (Bld) [#/Vol] 0.7 10*3/uL Low 1.00-4.8 [facility] Comment on above: Performed By: #### B MP, SCAN CBC ####[address] Lymphocytes/100 WBC (Bld) 3.7 % Normal . [facility] Comment on above: Performed By: #### B MP, SCAN CBC ####[id number] [facility] MCH (RBC) [Entitic mass] 29.9 pg Normal 27.5-35.2 [facility] Comment on above: Performed By: #### B MP, SCAN CBC ####[address] MCV (RBC) [Entitic vol] 92.0 fL Normal 83.5-101 [facility] Comment on above: Performed By: #### B MP, SCAN CBC ####[address] Mean Corpuscular HGB Conc 32.5 g/dL Normal 32.5-35.6 [facility] Comment on above: Performed By: #### B MP, SCAN CBC ####[address] Monocytes (Bld) [#/Vol] 0.8 10*3/uL Normal 0.0-0.8 [facility] Comment on above: Performed By: #### B MP, SCAN CBC ####[place] [id number] [facility] Monocytes/100 WBC (Bld) 4.3 % Normal . [facility] Comment on above: Performed By: #### B MP, SCAN CBC ####[place] [id number] [facility] Neutrophils (Bld) [#/Vol] 16.2 10*3/uL High 1.8-7.7 [facility] Comment on above: Performed By: #### B MP, SCAN CBC ####[place] [id number] [facility] Neutrophils/100 WBC (Bld) 91.8 % Normal . [facility] Comment on above: Performed By: #### B MP, SCAN CBC ####[address] [address] [facility] NRBC% 0.1 /100{WBC} Normal 0-0.5 [facility] Comment on above: Performed By: #### B MP, SCAN CBC ####[address] [address] [facility] Platelet Estimate Normal Normal Normal [facility] Comment on above: Performed By: #### B MP, SCAN CBC ####[address] [place] [address] [facility] Platelet mean volume (Bld) [Entitic vol] 7.4 fL Normal 6.6-10.1 [facility] Comment on above: Performed By: #### B MP, SCAN CBC ####[address] [address] [facility] Platelet Morphology Normal Normal Normal [facility] Comment on above: Result Comment: PERF ORMED BY:[address] [place], [place] [phone] MEDICAL ALEKSANDAR LAUREN M.D. Performed By: #### B MP, SCAN CBC ####[address] [address] [facility] Platelets (Bld) [#/Vol] 391 10*3/uL Normal 150-450 [facility] Comment on above: Performed By: #### B MP, SCAN CBC ####[address] [address] [facility] Polychromasia Moderate Normal [facility] Comment on above: Performed By: #### B MP, SCAN CBC ####[address] [address] [facility] RBC (Bld) [#/Vol] 3.58 10*6/uL Low 3.90-5.60 [facility] Comment on above: Performed By: #### B MP, SCAN CBC ####[address] [address] [facility] WBC (Bld) [#/Vol] 17.7 10*3/uL High 4.1-10.5 [facility] Comment on above: Performed By: #### B MP, SCAN CBC ####[facility] [id number] [place] [address] [facility] XR chest 1V portableon 11-08 XR chest 1V portable Normal [facility] XR chest 1V portable Normal [facility] Arterial Blood Gason 023 ABG Base Excess 1.0 mmol/L Normal -3.0-3.0 [facility] Comment on above: Performed By: #### A BG ####Point of Care testing, ABG Frac Inspired O2 100 % [facility] Comment on above: Performed By: #### A BG ####Point of Care testing, ABG Oxygen Content 7.4 mmol/L Normal 6.6-9.7 [facility] Comment on above: Performed By: #### A BG ####Point of Care testing, ABG Oxygen Saturation 98.0 % Normal 95.0-100.0 [facility] Comment on above: Performed By: #### A BG ####Point of Care testing, ABG PCO2 60.2 mm[Hg] Off scale high 35.0-45.0 [facility] Comment on above: Performed By: #### A BG ####Point of Care testing, ABG PEEP 15 [facility] Comment on above: Performed By: #### A BG ####Point of Care testing, ABG PH 7.30 Low 7.35-7.45 [facility] Comment on above: Performed By: #### A BG ####Point of Care testing, ABG PO2 115.1 mm[Hg] High 80.0-100.0 [facility] Comment on above: Performed By: #### A BG ####Point of Care testing, ABG TV 500 mL [facility] Comment on above: Performed By: #### A BG ####Point of Care testing, CO2 [Moles/Vol] 30.5 mmol/L High 23.0-27.0 [facility] Comment on above: Performed By: #### A BG ####Point of Care testing, HCO3 (Bld) [Moles/Vol] 28.6 mmol/L Normal 23.0-29.0 [facility] Comment on above: Performed By: #### A BG ####Point of Care testing, Respiratory Critical [facility] Comment on above: Result Comment: Crit ical Value called on: 11/07/2022 at 09:15PERFORMED BY:[facility] [place] [place], [place] [phone] MEDICAL DIRECTORNATI LAUREN M.D. Performed By: #### A BG ####Point of Care testing, Set Respiratory Rate 18 [facility] Comment on above: Performed By: #### A BG ####Point of Care testing, VBG Draw Site Right Radial [facility] Comment on above: Performed By: #### A BG ####Point of Care testing, Ventilator Mode AC [facility] Comment on above: Performed By: #### A BG ####Point of Care testing, ABG Base Excess 1.8 mmol/L Normal -3.0-3.0 [facility] Comment on above: Performed By: #### A BG ####Point of Care testing, ABG Frac Inspired O2 100 % [facility] Comment on above: Performed By: #### A BG ####Point of Care testing, ABG Oxygen Content 7.6 mmol/L Normal 6.6-9.7 [facility] Comment on above: Performed By: #### A BG ####Point of Care testing, ABG Oxygen Saturation 91.2 % Low 95.0-100.0 [facility] Comment on above: Performed By: #### A BG ####Point of Care testing, ABG PCO2 41.8 mm[Hg] Normal 35.0-45.0 [facility] Comment on above: Performed By: #### A BG ####Point of Care testing, ABG PEEP 10 [facility] Comment on above: Performed By: #### A BG ####Point of Care testing, ABG PH 7.42 Normal 7.35-7.45 [facility] Comment on above: Performed By: #### A BG ####Point of Care testing, ABG PO2 56.9 mm[Hg] Low 80.0-100.0 [facility] Comment on above: Performed By: #### A BG ####Point of Care testing, ABG Pressure Support 8.0 [facility] Comment on above: Performed By: #### A BG ####Point of Care testing, CO2 [Moles/Vol] 27.7 mmol/L High 23.0-27.0 [facility] Comment on above: Performed By: #### A BG ####Point of Care testing, HCO3 (Bld) [Moles/Vol] 26.4 mmol/L Normal 23.0-29.0 [facility] Comment on above: Performed By: #### A BG ####Point of Care testing, Oxygen Device BiPAP [facility] Comment on above: Performed By: #### A BG ####Point of Care testing, Respiratory Critical [facility] Comment on above: Result Comment: Crit ical Value called on: 11/07/2022 at 05:41PERFORMED BY:[address] [address] [place], [place] [phone] MEDICAL DIRECTORNATI LAUREN M.D. Performed By: #### A BG ####Point of Care testing, VBG Draw Site Right Radial [facility] Comment on above: Performed By: #### A BG ####Point of Care testing, Bacteria identification by s terile body fluid cultureOrdered By: Sanjay Holt on 11-07-2022 Bacteria identified Sterile body fluid culture Nom (Unsp spec) Not indicated. . [facility] Bacteria identification dete ction in isolate by cultureOrdered By: Sanjay Holt on 11-07-2022 Bacteria Identification Cx Ql (Isol) Not indicated. . [facility] Comprehensive Metabolic Pane tiago 11-07-2022 Albumin [Mass/Vol] 2.9 g/dL Low 3.5-5.7 [facility] Comment on above: Performed By: #### C MP, SCAN CBC ####[place] [id number] [facility] Albumin/Globulin [Mass ratio] 0.9 {ratio} Normal [facility] Comment on above: Performed By: #### C MP, SCAN CBC ####[place] [id number] [facility] ALP [Catalytic activity/Vol] 107 U/L High 34-104 [facility] Comment on above: Performed By: #### C MP, SCAN CBC ####[place] [id number] [facility] ALT [Catalytic activity/Vol] 38 U/L Normal 7-52 [facility] Comment on above: Performed By: #### C MP, SCAN CBC ####[place] [id number] [facility] Anion gap [Moles/Vol] 11.7 mmol/L Normal 6.0-15.0 [facility] Comment on above: Performed By: #### C MP, SCAN CBC ####[place] [id number] [facility] AST [Catalytic activity/Vol] 32 U/L Normal 13-39 [facility] Comment on above: Performed By: #### C MP, SCAN CBC ####[place] [id number] [facility] Bilirubin [Mass/Vol] 0.5 mg/dL Normal 0.3-1.0 [facility] Comment on above: Performed By: #### C MP, SCAN CBC ####[place] [id number] [facility] Calcium [Mass/Vol] 8.4 mg/dL Low 8.6-10.3 [facility] Comment on above: Performed By: #### C MP, SCAN CBC ####[place] [id number] [facility] Chloride [Moles/Vol] 99 mmol/L Normal 98-107 [facility] Comment on above: Performed By: #### C MP, SCAN CBC ####[facility] [id number] [place] [id number] [facility] CO2 [Moles/Vol] 27.6 mmol/L Normal 21.0-31.0 [facility] Comment on above: Performed By: #### C MP, SCAN CBC ####[facility] [id number] [place] [id number] [facility] Creatinine [Mass/Vol] 0.55 mg/dL Low 0.70-1.30 [facility] Comment on above: Performed By: #### C MP, SCAN CBC ####[place] [id number] Creatinine Clr Calc Pharmacy 197.78 [facility] Comment on above: Result Comment: PERF ORMED BY:[address] [place], [place] [phone] MEDICAL ALEKSANDAR LAUREN M.D. Performed By: #### C MP, SCAN CBC ####[place] [id number] [place] [id number] [facility] GFR/1.73 sq M.predicted MDRD (S/P/Bld) [Vol rate/Area] mL/min/{1.73_m2} [facility] Comment on above: Performed By: #### C MP, SCAN CBC ####[facility] [id number] [place] [id number] [facility] Globulin (S) [Mass/Vol] 3.4 g/dL [facility] Comment on above: Performed By: #### C MP, SCAN CBC ####[facility] [id number] [place] [id number] [facility] Glucose [Mass/Vol] 128 mg/dL High 70-100 [facility] Comment on above: Result Comment: [place] Glucose Reference Range is dependent on time and content of last meal. Glucose of more than 200 mg/dL in a nonstressed, ambulatory subject supports the diagnosis of Diabetes Mellitus. ADA recommended reference range Performed By: #### C MP, SCAN CBC ####[facility] [id number] [place] [address] [facility] Potassium [Moles/Vol] 4.3 mmol/L Normal 3.5-5.1 [facility] Comment on above: Performed By: #### C MP, SCAN CBC ####[facility] [id number] [place] [address] [facility] Protein [Mass/Vol] 6.3 g/dL Low 6.4-8.9 [facility] Comment on above: Performed By: #### C MP, SCAN CBC ####[facility] [id number] [place] [address] [facility] Sodium [Moles/Vol] 134 mmol/L Low 136-145 [facility] Comment on above: Performed By: #### C MP, SCAN CBC ####[facility] [id number] [place] [address] [facility] Urea nitrogen [Mass/Vol] 20 mg/dL Normal 7-25 [facility] Comment on above: Performed By: #### C MP, SCAN CBC ####[facility] [id number] [place] [address] [facility] ECG 12 lead ECGon 11-07-2022 ECG 12 lead ECG Normal [facility] ECG 12 lead ECG Normal [facility] ECG 12 lead ECG Normal [facility] Legionella Pneu 1-6 Antibodi eson 11-07-2022 Legionella Pneu 1-6 Antibodies <0.91 Normal 0.00-0.90 [facility] Comment on above: Order Comment: SPECI MEN HEMOLYZED NEEDS REDRAWN PLEASE Result Comment: Nega tive <0.91 Equivocal 0.91 - 1.09 Positive >1.09 This assay detects IgG/IgM/IgA antibodies to L. pneumophila Groups 1-6 by the EIA method. Performed at: [address] [id number] Harness Preparer: Marla Bravo MD, Phone: [phone] BY:[address] [place], [place] [id number] MEDICAL DIRECTORNATI LAUREN M.D. Performed By: #### L EG PNE AB ####[facility] , Legionella Pneumophilia Ag, Uron 11-07-2022 Legionella Pneumophilia Ag, Ur Negative Normal Negative [facility] Comment on above: Order Comment: SOURC E OF SPECIMEN: [email or web address] Result Comment: Pres umptive negative for L. pneumophila serogroup 1 antigen in urine, suggesting no recent or current infection. Legionnaires' disease cannot be ruled out since other serogroups and species may also cause disease. Performed at: [address] [id number] Harness Preparer: Marla Bravo MD, Phone: [phone] BY:[facility] [place], [place] [phone] MEDICAL DIRECTORNATI LAUREN M.D. Performed By: #### U RLEGIONELLA ####[facility] , Legionella pneumophila type 1-6 antibody assayOrdered By: Sanjay Holt on 11-07-2022 L. pneumophila 1+2+3+4+5+6 Ab (S) [Titer] <0.91 OD ratio 0.00-0.90 [facility] Comment on above: Negative <0.91 Equiv ocal 0.91 - 1.09 Positive >1.09 This assay detects IgG/IgM/IgA antibodies to L. pneumophila Groups 1-6 by the EIA method.Performed at: [address] [id number] Director: Marla Bravo MD, Phone: [phone] Macrocytes LM Ql (Bld)Ordere d By: Netta Wiseman on 11-07-2022 Macrocytes Ql (Bld) Slight [facility] No Panel InformationOrdered By: Sanjay Holt on 11-07-2022 Strep pneumoniae Special Info See comment . [facility] Comment on above: [employer] standards require aculture to be performed on CSF specimens submitted forbacterial antigen testing. (CAP ALEJANDRO.[id number]) Urine specimenswill not be cultured.Performed at: [address] [id number] Director: Marla Bravo MD, Phone: [phone] No Panel InformationOrdered By: Netta Wiseman on 11-07-2022 Blood Gas Pressure Support 8.0 cmH2O [facility] Oxygen Delivery Device Bipap [facility] Scan and CBCon 11-07-2022 Anisocytosis Ql (Bld) Slight Normal [facility] Comment on above: Performed By: #### C MP, SCAN CBC ####[place] [id number] [address] Basophils (Bld) [#/Vol] 0.1 10*3/uL Normal 0.0-0.2 [facility] Comment on above: Performed By: #### C MP, SCAN CBC ####[place] [address] Basophils/100 WBC (Bld) 0.3 % Normal . [facility] Comment on above: Performed By: #### C MP, SCAN CBC ####[place] [address] Eosinophils (Bld) [#/Vol] 0.0 10*3/uL Normal 0.0-0.45 [facility] Comment on above: Performed By: #### C MP, SCAN CBC ####[place] [id number] [facility] Eosinophils/100 WBC (Bld) 0.0 % Normal . [facility] Comment on above: Performed By: #### C MP, SCAN CBC ####[place] [address] [place] [id number] [facility] Erythrocyte distribution width (RBC) [Ratio] 14.0 % Normal 12.0-14.8 [facility] Comment on above: Performed By: #### C MP, SCAN CBC ####[place] [address] [place] [id number] [facility] Hematocrit (Bld) [Volume fraction] 35.1 % Low 38.8-50.0 [facility] Comment on above: Performed By: #### C MP, SCAN CBC ####[address] Hemoglobin (Bld) [Mass/Vol] 11.5 g/dL Low 13.0-17.0 [facility] Comment on above: Performed By: #### C MP, SCAN CBC ####[address] Hypochromasia Slight Normal [facility] Comment on above: Performed By: #### C MP, SCAN CBC ####[address] Lymphocytes (Bld) [#/Vol] 1.1 10*3/uL Normal 1.00-4.8 [facility] Comment on above: Performed By: #### C MP, SCAN CBC ####[address] Lymphocytes/100 WBC (Bld) 3.3 % Normal . [facility] Comment on above: Performed By: #### C MP, SCAN CBC ####[address] Macrocytosis Slight Normal [facility] Comment on above: Performed By: #### C MP, SCAN CBC ####[address] MCH (RBC) [Entitic mass] 29.8 pg Normal 27.5-35.2 [facility] Comment on above: Performed By: #### C MP, SCAN CBC ####[address] MCV (RBC) [Entitic vol] 91.0 fL Normal 83.5-101 [facility] Comment on above: Performed By: #### C MP, SCAN CBC ####[address] Mean Corpuscular HGB Conc 32.8 g/dL Normal 32.5-35.6 [facility] Comment on above: Performed By: #### C MP, SCAN CBC ####[address] Monocytes (Bld) [#/Vol] 0.8 10*3/uL Normal 0.0-0.8 [facility] Comment on above: Performed By: #### C MP, SCAN CBC ####[place] [id number] [facility] Monocytes/100 WBC (Bld) 2.4 % Normal . [facility] Comment on above: Performed By: #### C MP, SCAN CBC ####[address] Neutrophils (Bld) [#/Vol] 30.7 10*3/uL High 1.8-7.7 [facility] Comment on above: Performed By: #### C MP, SCAN CBC ####[address] Neutrophils/100 WBC (Bld) 94.0 % Normal . [facility] Comment on above: Performed By: #### C MP, SCAN CBC ####[address] NRBC% 0.1 /100{WBC} Normal 0-0.5 [facility] Comment on above: Performed By: #### C MP, SCAN CBC ####[place] [id number] [facility] Platelet Estimate Normal Normal Normal [facility] Comment on above: Performed By: #### C MP, SCAN CBC ####[address] Platelet mean volume (Bld) [Entitic vol] 7.9 fL Normal 6.6-10.1 [facility] Comment on above: Performed By: #### C MP, SCAN CBC ####[place] [id number] [facility] Platelet Morphology Normal Normal Normal [facility] Comment on above: Result Comment: PERF ORMED BY:[address] [place], [place] [phone] MEDICAL ALEKSANDAR LAUREN M.D. Performed By: #### C MP, SCAN CBC ####[facility] [place] [id number] [facility] Platelets (Bld) [#/Vol] 409 10*3/uL Normal 150-450 [facility] Comment on above: Performed By: #### C MP, SCAN CBC ####[place] [address] Polychromasia Slight Normal [facility] Comment on above: Performed By: #### C MP, SCAN CBC ####[place] [address] [place] [id number] [facility] RBC (Bld) [#/Vol] 3.85 10*6/uL Low 3.90-5.60 [facility] Comment on above: Performed By: #### C MP, SCAN CBC ####[place] [address] [place] [id number] [facility] Stomatocytes Slight Normal [facility] Comment on above: Performed By: #### C MP, SCAN CBC ####[address] WBC (Bld) [#/Vol] 32.6 10*3/uL High 4.1-10.5 [facility] Comment on above: Performed By: #### C MP, SCAN CBC ####[place] [address] [place] [id number] [facility] Specimen source identifiedOr dered By: Sanjay Holt on 11-07-2022 Specimen source Nom (Unsp spec) Urine . [facility] Strep Pneumoniae Ag, Uron Body Fluid Culture Not indicated. Normal . [facility] Comment on above: Order Comment: SOURC E OF SPECIMEN: [email or web address] Performed By: #### U R STP AG ####[facility] , Organism ID Not indicated. Normal . [facility] Comment on above: Order Comment: SOURC E OF SPECIMEN: [email or web address] Performed By: #### U R STP AG ####[facility] , Please Note: Normal . [facility] Comment on above: Order Comment: SOURC E OF SPECIMEN: [email or web address] Result Comment: [employer] standards require a culture to be performed on CSF specimens submitted for bacterial antigen testing. (CAP ALEJANDRO.[id number]) Urine specimens will not be cultured. Performed at: [address] [id number] Harness Preparer: Marla Bravo MD, Phone: [phone] BY:[place] [address] [place], [place] [phone] MEDICAL DIRECTORNATI LAUREN M.D. Performed By: #### U R STP AG ####[facility] , Specimen source Nom (Unsp spec) Urine Normal . [facility] Comment on above: Order Comment: SOURC E OF SPECIMEN: [email or web address] Performed By: #### U R STP AG ####[facility] , Streptococcus Pneumoniae Ag Negative Normal Negative [facility] Comment on above: Order Comment: SOURC E OF SPECIMEN: [email or web address] Performed By: #### U R STP AG ####[facility] , Streptococcus pneumoniae ant igen detectionOrdered By: Sanjay Holt on 11-07-2022 S. pneumoniae Ag Ql (Unsp spec) Negative Negative [facility] Triglycerideson 11-07-2022 Triglyceride [Mass/Vol] 222 mg/dL High 0-149 [facility] Comment on above: Order Comment: Comme nt please run off blood drawn this morning Result Comment: TRIG ATP III CLASSIFICATION TRIG less than 150 mg/dL Normal TRIG 150-199 mg/dL Borderline high TRIG 200-500 mg/dL High TRIG greater than 500 mg/dL Very high Standard traceable to the Center for Disease Conrtrol and Prevention (CDC) test method.PERFORMED BY:[place] [address] [place], [place] [phone] MEDICAL DIRECTORNATI LAUREN M.D. Performed By: #### T RIG ####[facility] [id number] [facility]nov[facility] [place] [address] [facility] Urine Legionella antigen det ectionOrdered By: Sanjay Holt on 11-07-2022 Legionella sp Ag Ql (U) Negative Negative [facility] Comment on above: Presumptive negative for L. pneumophila serogroup 1 antigenin urine, suggesting no recent or current infection.Legionnaires' disease cannot be ruled out since otherserogroups and species may also cause disease.Performed at: [address] [id number] Director: Marla Bravo MD, Phone: [phone] XR chest 1V portableon 11-07 XR chest 1V portable Normal [facility] XR chest 1V portable [facility] CT chest w conon 11-06-2022 CT chest w con [facility] Comprehensive Metabolic Pane tiago 11-06-2022 Albumin [Mass/Vol] 2.8 g/dL Low 3.5-5.7 [facility] Comment on above: Order Comment: draw at 0500 Performed By: #### C MP, SCAN CBC ####[facility] [address] [place] [address] [facility] Albumin/Globulin [Mass ratio] 0.8 {ratio} [facility] Comment on above: Order Comment: draw at 0500 Performed By: #### C MP, SCAN CBC ####[facility] [id number] [place] [address] [facility] ALP [Catalytic activity/Vol] 96 U/L Normal 34-104 [facility] Comment on above: Order Comment: draw at 0500 Performed By: #### C MP, SCAN CBC ####[facility] [address] [place] [address] [facility] ALT [Catalytic activity/Vol] 17 U/L Normal 7-52 [facility] Comment on above: Order Comment: draw at 0500 Performed By: #### C MP, SCAN CBC ####[facility] [id number] [place] [address] [place] Anion gap [Moles/Vol] 11.9 mmol/L Normal 6.0-15.0 [facility] Comment on above: Order Comment: draw at 0500 Performed By: #### C MP, SCAN CBC ####[facility] [id number] [place] [address] [place] AST [Catalytic activity/Vol] 11 U/L Low 13-39 [facility] Comment on above: Order Comment: draw at 0500 Performed By: #### C MP, SCAN CBC ####[facility] [place] [address] [facility] Bilirubin [Mass/Vol] 0.5 mg/dL Normal 0.3-1.0 [facility] Comment on above: Order Comment: draw at 0500 Performed By: #### C MP, SCAN CBC ####[facility] [address] [place] [address] [facility] Calcium [Mass/Vol] 8.4 mg/dL Low 8.6-10.3 [facility] Comment on above: Order Comment: draw at 0500 Performed By: #### C MP, SCAN CBC ####[facility] [address] [place] [address] [facility] Chloride [Moles/Vol] 101 mmol/L Normal 98-107 [facility] Comment on above: Order Comment: draw at 0500 Performed By: #### C MP, SCAN CBC ####[place] [address] [place] [address] [facility] CO2 [Moles/Vol] 26.8 mmol/L Normal 21.0-31.0 [facility] Comment on above: Order Comment: draw at 0500 Performed By: #### C MP, SCAN CBC ####[facility] [place] [address] [place] Creatinine [Mass/Vol] 0.51 mg/dL Low 0.70-1.30 [facility] Comment on above: Order Comment: draw at 0500 Performed By: #### C MP, SCAN CBC ####[facility] [address] [place] [address] [place] Creatinine Clr Calc Pharmacy 213.29 Normal [facility] Comment on above: Order Comment: draw at 0500 Result Comment: PERF ORMED BY:[address] [place], [place] [phone] MEDICAL DIRECTORNATI LAUREN M.D. Performed By: #### C MP, SCAN CBC ####[facility] [place] [address] [facility] GFR/1.73 sq M.predicted MDRD (S/P/Bld) [Vol rate/Area] mL/min/{1.73_m2} [facility] Comment on above: Order Comment: draw at 0500 Performed By: #### C MP, SCAN CBC ####[place] [address] [place] [address] [place] Globulin (S) [Mass/Vol] 3.4 g/dL [facility] Comment on above: Order Comment: draw at 0500 Performed By: #### C MP, SCAN CBC ####[place] [address] [place] [address] [facility] Glucose [Mass/Vol] 127 mg/dL High 70-100 [facility] Comment on above: Order Comment: draw at 0500 Result Comment: [place] Glucose Reference Range is dependent on time and content of last meal. Glucose of more than 200 mg/dL in a nonstressed, ambulatory subject supports the diagnosis of Diabetes Mellitus. ADA recommended reference range Performed By: #### C MP, SCAN CBC ####[place] [address] [place] [address] [place] Potassium [Moles/Vol] 3.7 mmol/L Normal 3.5-5.1 [facility] Comment on above: Order Comment: draw at 0500 Performed By: #### C MP, SCAN CBC ####[place] [address] [place] [address] [place] Protein [Mass/Vol] 6.2 g/dL Low 6.4-8.9 [facility] Comment on above: Order Comment: draw at 0500 Performed By: #### C MP, SCAN CBC ####[place] [address] [place] [address] [place] Sodium [Moles/Vol] 136 mmol/L Normal 136-145 [facility] Comment on above: Order Comment: draw at 0500 Performed By: #### C MP, SCAN CBC ####[place] [address] [place] [id number] [facility] Urea nitrogen [Mass/Vol] 15 mg/dL Normal 7-25 [facility] Comment on above: Order Comment: draw at 0500 Performed By: #### C MP, SCAN CBC ####[address] Helmet cell detectionOrdered By: Netta Wiseman on 11-06-2022 Helmet cells LM Ql (Bld) Slight [facility] Scan and CBCon 11-06-2022 Basophils (Bld) [#/Vol] 0.1 10*3/uL Normal 0.0-0.2 [facility] Comment on above: Order Comment: draw at 0500 Performed By: #### C MP, SCAN CBC ####[address] Basophils/100 WBC (Bld) 0.2 % Normal . [facility] Comment on above: Order Comment: draw at 0500 Performed By: #### C MP, SCAN CBC ####[address] Eosinophils (Bld) [#/Vol] 0.0 10*3/uL Normal 0.0-0.45 [facility] Comment on above: Order Comment: draw at 0500 Performed By: #### C MP, SCAN CBC ####[address] Eosinophils/100 WBC (Bld) 0.0 % Normal . [facility] Comment on above: Order Comment: draw at 0500 Performed By: #### C MP, SCAN CBC ####[address] Erythrocyte distribution width (RBC) [Ratio] 13.9 % Normal 12.0-14.8 [facility] Comment on above: Order Comment: draw at 0500 Performed By: #### C MP, SCAN CBC ####[address] Helmet Cells Slight Normal [facility] Comment on above: Order Comment: draw at 0500 Performed By: #### C MP, SCAN CBC ####[address] Hematocrit (Bld) [Volume fraction] 34.6 % Low 38.8-50.0 [facility] Comment on above: Order Comment: draw at 0500 Performed By: #### C MP, SCAN CBC ####[address] Hemoglobin (Bld) [Mass/Vol] 11.2 g/dL Low 13.0-17.0 [facility] Comment on above: Order Comment: draw at 0500 Performed By: #### C MP, SCAN CBC ####[place] [id number] [facility] Hypochromasia Slight Normal [facility] Comment on above: Order Comment: draw at 0500 Performed By: #### C MP, SCAN CBC ####[address] Lymphocytes (Bld) [#/Vol] 1.1 10*3/uL Normal 1.00-4.8 [facility] Comment on above: Order Comment: draw at 0500 Performed By: #### C MP, SCAN CBC ####[address] Lymphocytes/100 WBC (Bld) 3.5 % Normal . [facility] Comment on above: Order Comment: draw at 0500 Performed By: #### C MP, SCAN CBC ####[address] MCH (RBC) [Entitic mass] 29.7 pg Normal 27.5-35.2 [facility] Comment on above: Order Comment: draw at 0500 Performed By: #### C MP, SCAN CBC ####[place] [id number] [facility] MCV (RBC) [Entitic vol] 91.8 fL Normal 83.5-101 [facility] Comment on above: Order Comment: draw at 0500 Performed By: #### C MP, SCAN CBC ####[place] [id number] [facility] Mean Corpuscular HGB Conc 32.4 g/dL Low 32.5-35.6 [facility] Comment on above: Order Comment: draw at 0500 Performed By: #### C MP, SCAN CBC ####[address] [address] [facility] Monocytes (Bld) [#/Vol] 1.0 10*3/uL High 0.0-0.8 [facility] Comment on above: Order Comment: draw at 0500 Performed By: #### C MP, SCAN CBC ####[address] [address] [facility] Monocytes/100 WBC (Bld) 3.3 % Normal . [facility] Comment on above: Order Comment: draw at 0500 Performed By: #### C MP, SCAN CBC ####[address] [address] [facility] Neutrophils (Bld) [#/Vol] 28.0 10*3/uL High 1.8-7.7 [facility] Comment on above: Order Comment: draw at 0500 Performed By: #### C MP, SCAN CBC ####[address] [address] [facility] Neutrophils/100 WBC (Bld) 93.0 % Normal . [facility] Comment on above: Order Comment: draw at 0500 Performed By: #### C MP, SCAN CBC ####[address] [address] [facility] NRBC% 0.0 /100{WBC} Normal 0-0.5 [facility] Comment on above: Order Comment: draw at 0500 Performed By: #### C MP, SCAN CBC ####[address] [address] [facility] Platelet Estimate Normal Normal Normal [facility] Comment on above: Order Comment: draw at 0500 Performed By: #### C MP, SCAN CBC ####[address] [address] [facility] Platelet mean volume (Bld) [Entitic vol] 8.0 fL Normal 6.6-10.1 [facility] Comment on above: Order Comment: draw at 0500 Performed By: #### C MP, SCAN CBC ####[address] [address] [facility] Platelet Morphology Normal Normal Normal [facility] Comment on above: Order Comment: draw at 0500 Result Comment: PERF ORMED BY:[address] [place], [place] [phone] MEDICAL DIRECTORNATI LAUREN M.D. Performed By: #### C MP, SCAN CBC ####[address] [address] [facility] Platelets (Bld) [#/Vol] 346 10*3/uL Normal 150-450 [facility] Comment on above: Order Comment: draw at 0500 Performed By: #### C MP, SCAN CBC ####[address] [address] [facility] RBC (Bld) [#/Vol] 3.77 10*6/uL Low 3.90-5.60 [facility] Comment on above: Order Comment: draw at 0500 Performed By: #### C MP, SCAN CBC ####[address] [address] [facility] WBC (Bld) [#/Vol] 30.2 10*3/uL High 4.1-10.5 [facility] Comment on above: Order Comment: draw at 0500 Performed By: #### C MP, SCAN CBC ####[place] [id number] [facility] Aerobic Cultureon 11-05-2022 Aerobic Culture Normal [facility] Comment on above: Performed By: #### G S, AERC ####[place] [id number] [facility] Arterial Blood Gason 023 ABG Base Excess 0.9 mmol/L Normal -3.0-3.0 [facility] Comment on above: Performed By: #### A BG ####Point of Care testing, ABG Frac Inspired O2 55 % Normal [facility] Comment on above: Performed By: #### A BG ####Point of Care testing, ABG Liter Flow 14 Normal [facility] Comment on above: Performed By: #### A BG ####Point of Care testing, ABG Oxygen Content 6.6 mmol/L Normal 6.6-9.7 [facility] Comment on above: Performed By: #### A BG ####Point of Care testing, ABG Oxygen Saturation 89.0 % Low 95.0-100.0 [facility] Comment on above: Performed By: #### A BG ####Point of Care testing, ABG PCO2, Temp Corrected 40.4 mm[Hg] Normal 35.0-45.0 [facility] Comment on above: Performed By: #### A BG ####Point of Care testing, ABG PH, Temp Corrected 7.41 Normal 7.35-7.45 [facility] Comment on above: Performed By: #### A BG ####Point of Care testing, ABG PO2, Temperature Corrected 61.0 mm[Hg] Low 80.0-100.0 [facility] Comment on above: Performed By: #### A BG ####Point of Care testing, CO2 [Moles/Vol] 25.8 mmol/L Normal 23.0-27.0 [facility] Comment on above: Performed By: #### A BG ####Point of Care testing, HCO3 (Bld) [Moles/Vol] 24.7 mmol/L Normal 23.0-29.0 [facility] Comment on above: Performed By: #### A BG ####Point of Care testing, Oxygen Device Venti Mask [facility] Comment on above: Performed By: #### A BG ####Point of Care testing, Respiratory Critical Normal [facility] Comment on above: Result Comment: Crit ical Value called on: 11/05/2022 at 09:39PERFORMED BY:[facility] [place], [place] [phone] MEDICAL DIRECTORNATI LAUREN M.D. Performed By: #### A BG ####Point of Care testing, VBG Draw Site Right Radial Normal [facility] Comment on above: Performed By: #### A BG ####Point of Care testing, B-Type Natriuretic Peptideon 11-05-2022 Natriuretic peptide B (Bld) [Mass/Vol] 130.0 pg/mL High 5-100 [facility] Comment on above: Result Comment: PERF ORMED BY:[address] [place], [place] [id number] MEDICAL DIRECTORNATI LAUREN M.D. Performed By: #### B COKEMAN, LACTIC, HS TROP, HEPATIC ####[address]#### PROCALCITONIN ####[facility] , Basic Metabolic Panelon 10-09 Anion gap [Moles/Vol] 10.1 mmol/L Normal 6.0-15.0 [facility] Comment on above: Performed By: #### E SR, BMP, MG, CBC ####[address] [address] [facility] Calcium [Mass/Vol] 7.8 mg/dL Low 8.6-10.3 [facility] Comment on above: Performed By: #### E SR, BMP, MG, CBC ####[address] [address] [facility] Chloride [Moles/Vol] 101 mmol/L Normal 98-107 [facility] Comment on above: Performed By: #### E SR, BMP, MG, CBC ####[address] [address] [facility] CO2 [Moles/Vol] 27.1 mmol/L Normal 21.0-31.0 [facility] Comment on above: Performed By: #### E SR, BMP, MG, CBC ####[address] [address] [facility] Creatinine [Mass/Vol] 0.59 mg/dL Low 0.70-1.30 [facility] Comment on above: Performed By: #### E SR, BMP, MG, CBC ####[facility] [address] [place] [address] [place] Creatinine Clr Calc Pharmacy 169.08 [facility] Comment on above: Performed By: #### E SR, BMP, MG, CBC ####[facility] [address] [place] [address] [place] GFR/1.73 sq M.predicted MDRD (S/P/Bld) [Vol rate/Area] mL/min/{1.73_m2} [facility] Comment on above: Performed By: #### E SR, BMP, MG, CBC ####[facility] [address] [place] [address] [facility] Glucose [Mass/Vol] 135 mg/dL High 70-100 [facility] Comment on above: Result Comment: [place] Glucose Reference Range is dependent on time and content of last meal. Glucose of more than 200 mg/dL in a nonstressed, ambulatory subject supports the diagnosis of Diabetes Mellitus. ADA recommended reference range Performed By: #### E SR, BMP, MG, CBC ####[address] [place] [address] [facility] Potassium [Moles/Vol] 3.2 mmol/L Low 3.5-5.1 [facility] Comment on above: Performed By: #### E SR, BMP, MG, CBC ####[address] [place] [address] [facility] Sodium [Moles/Vol] 135 mmol/L Low 136-145 [facility] Comment on above: Performed By: #### E SR, BMP, MG, CBC ####[facility] [place] [address] [place] Urea nitrogen [Mass/Vol] 13 mg/dL Normal 7-25 [facility] Comment on above: Performed By: #### E SR, BMP, MG, CBC ####[facility] [place] [address] [facility] BioFire Not Detectedon 11-05 BioFire Not Detected Not detected Normal Not Detecte [facility] Comment on above: Result Comment: This is a duplicate RP2.1 COVID (PCR) result to be used for statistical tracking purpose only.PERFORMED BY:[facility] [place], [place] [phone] MEDICAL DIRECTORNATI LAUREN M.D. Performed By: #### B IOFIRECOVNOTDE, RESP PANEL UPP. ####[facility] [address] [place] [address] [place] Blood Cultureon 11-05-2022 Bacteria identified Cx Nom (Bld) NO GROWTH 5 DAYS PERFORMED BY: [facility] [address] [place] [address] PATHOLOGIST SALES FLOOR TEAM LEADER NATI LAUREN M.D. Normal [facility] Comment on above: Performed By: #### C UBLD ####[facility] [address] [place] [address] [place] CARDIAC RON 3-6on 3 CK [Catalytic activity/Vol] 45 U/L Normal 39-308 [facility] Comment on above: Performed By: #### C MREP #### [facility] [address] [address] [address] Epi Goldstein CK.MB [Mass/Vol] 0.75 ng/mL Normal <=3.60 [facility] Comment on above: Performed By: #### C MREP #### [facility] [address] [address] [address] Epi Goldstein HSTROP 7.0 pg/mL Normal 4.0-76.1 [facility] Comment on above: Result Comment: CUT- OFF POINTS HAVE BEEN ESTABLISHED BASED ON THE FOURTH UNIVERSAL DEFINITIONS OF MYOCARDIAL INFARCTION. THE UPPER REFERENCE LIMIT (URL) OF TROPONIN, DEFINED THE 99TH PERCENTILE OF cTnI DISTRIBUTION IN A REFERENCE POPULATION, HAS BEEN CONFIRMED THE DECISION THRESHOLD FOR ID DIAGNOSIS. Performed By: #### C MREP #### [facility] [address] [address] [address] Epi Goldstein COVID-19 Detected/Not Detect edOrdered By: Netta Wiseman on 11-05-2022 SARS-CoV-2 (COVID-19) RNA ROWENA+non-probe Ql (Nph) Not detected Not Detecte [facility] Comment on above: This is a duplicate RP2.1 COVID (PCR) result to be used for statistical tracking purpose only. Complete Blood Count Auto Di ffon 11-05-2022 Basophils (Bld) [#/Vol] 0.1 10*3/uL Normal 0.0-0.2 [facility] Comment on above: Performed By: #### E SR, BMP, MG, CBC ####[place] Basophils/100 WBC (Bld) 0.5 % Normal . [facility] Comment on above: Performed By: #### E SR, BMP, MG, CBC ####[facility] [address] [place] [address] Eosinophils (Bld) [#/Vol] 0.1 10*3/uL Normal 0.0-0.45 [facility] Comment on above: Performed By: #### E SR, BMP, MG, CBC ####[address] Eosinophils/100 WBC (Bld) 0.5 % Normal . [facility] Comment on above: Performed By: #### E , BMP, MG, CBC ####[address] Erythrocyte distribution width (RBC) [Ratio] 13.2 % Normal 12.0-14.8 [facility] Comment on above: Performed By: #### E SR, BMP, MG, CBC ####[facility] [address] [place], [place] [id number] [facility] Hematocrit (Bld) [Volume fraction] 30.8 % Low 38.8-50.0 [facility] Comment on above: Performed By: #### E SR, BMP, MG, CBC ####[id number] [facility] Hemoglobin (Bld) [Mass/Vol] 10.2 g/dL Low 13.0-17.0 [facility] Comment on above: Performed By: #### E SR, BMP, MG, CBC ####[address] Lymphocytes (Bld) [#/Vol] 1.5 10*3/uL Normal 1.00-4.8 [facility] Comment on above: Performed By: #### E SR, BMP, MG, CBC ####[address] Lymphocytes/100 WBC (Bld) 8.7 % Normal . [facility] Comment on above: Performed By: #### E SR, BMP, MG, CBC ####[address] MCH (RBC) [Entitic mass] 30.0 pg Normal 27.5-35.2 [facility] Comment on above: Performed By: #### E SR, BMP, MG, CBC ####[address] MCV (RBC) [Entitic vol] 90.7 fL Normal 83.5-101 [facility] Comment on above: Performed By: #### E SR, BMP, MG, CBC ####[address] Mean Corpuscular HGB Conc 33.1 g/dL Normal 32.5-35.6 [facility] Comment on above: Performed By: #### E SR, BMP, MG, CBC ####[address] Monocytes (Bld) [#/Vol] 1.4 10*3/uL High 0.0-0.8 [facility] Comment on above: Performed By: #### E SR, BMP, MG, CBC ####[address] Monocytes/100 WBC (Bld) 8.3 % Normal . [facility] Comment on above: Performed By: #### E SR, BMP, MG, CBC ####[address] Neutrophils (Bld) [#/Vol] 14.3 10*3/uL High 1.8-7.7 [facility] Comment on above: Performed By: #### E SR, BMP, MG, CBC ####[address] Neutrophils/100 WBC (Bld) 82.0 % Normal . [facility] Comment on above: Performed By: #### E SR, BMP, MG, CBC ####[address] NRBC% 0.1 /100{WBC} Normal 0-0.5 [facility] Comment on above: Performed By: #### E SR, BMP, MG, CBC ####[address] Platelet mean volume (Bld) [Entitic vol] 7.8 fL Normal 6.6-10.1 [facility] Comment on above: Performed By: #### E SR, BMP, MG, CBC ####[address] Platelets (Bld) [#/Vol] 319 10*3/uL Normal 150-450 [facility] Comment on above: Performed By: #### E SR, BMP, MG, CBC ####[address] RBC (Bld) [#/Vol] 3.39 10*6/uL Low 3.90-5.60 [facility] Comment on above: Performed By: #### E SR, BMP, MG, CBC ####[address] WBC (Bld) [#/Vol] 17.4 10*3/uL High 4.1-10.5 [facility] Comment on above: Performed By: #### E SR, BMP, MG, CBC ####[address] ECG 12 lead ECGon 11-05-2022 ECG 12 lead ECG Normal [facility] Erythrocyte Sedimentation Ra tristin 11-05-2022 ESR (Bld) [Velocity] 82 mm/h High 0-19 [facility] Comment on above: Result Comment: PERF ORMED BY:[address] [place], [place] [phone] MEDICAL DIRECTORNATI LAUREN M.D. Performed By: #### E SR, BMP, MG, CBC ####[address] Erythrocyte sedimentation ra te by Photometric methodOrdered By: Annabel Boo on 11-05-2022 ESR Photometric method (Bld) [Velocity] 82 mm/hr 0-19 [facility] Gram Stainon 11-05-2022 Microscopic observation Gram stain Nom (Unsp spec) [facility] Comment on above: Performed By: #### G S, AERC ####[address] Hepatic Panelon 11-05-2022 Albumin [Mass/Vol] 2.9 g/dL Low 3.5-5.7 [facility] Comment on above: Performed By: #### B COKEMAN, LACTIC, HS TROP, HEPATIC ####[address]#### PROCALCITONIN ####[facility] , Albumin/Globulin [Mass ratio] 1.0 {ratio} Normal [facility] Comment on above: Performed By: #### B COKEMAN, LACTIC, HS TROP, HEPATIC ####[address]#### PROCALCITONIN ####[facility] , ALP [Catalytic activity/Vol] 79 U/L Normal 34-104 [facility] Comment on above: Result Comment: PERF ORMED BY:[address] [address] [place], [place] [phone] MEDICAL DIRECTORNATI LAUREN M.D. Performed By: #### B COKEMAN, LACTIC, HS TROP, HEPATIC ####[address]#### PROCALCITONIN ####[facility] , ALT [Catalytic activity/Vol] 24 U/L Normal 7-52 [facility] Comment on above: Performed By: #### B COKEMAN, LACTIC, HS TROP, HEPATIC ####[address]#### PROCALCITONIN ####[facility] , AST [Catalytic activity/Vol] 12 U/L Low 13-39 [facility] Comment on above: Performed By: #### B COKEMAN, LACTIC, HS TROP, HEPATIC ####[address]#### PROCALCITONIN ####[facility] , Bilirubin [Mass/Vol] 0.4 mg/dL Normal 0.3-1.0 [facility] Comment on above: Performed By: #### B COKEMAN, LACTIC, HS TROP, HEPATIC ####[address]#### PROCALCITONIN ####[facility] , Bilirubin,Indirect 0.3 mg/dL Normal [facility] Comment on above: Performed By: #### B COKEMAN, LACTIC, HS TROP, HEPATIC ####[address]#### PROCALCITONIN ####[facility] , Bilirubin.indirect [Mass/Vol] 0.10 mg/dL Normal 0.03-0.18 [facility] Comment on above: Performed By: #### B COKEMAN, LACTIC, HS TROP, HEPATIC ####[address]#### PROCALCITONIN ####[facility] , Globulin (S) [Mass/Vol] 2.8 g/dL Normal [facility] Comment on above: Performed By: #### B COKEMAN, LACTIC, HS TROP, HEPATIC ####[address] [place] [id number] [facility]#### PROCALCITONIN ####[facility] , Protein [Mass/Vol] 5.7 g/dL Low 6.4-8.9 [facility] Comment on above: Performed By: #### B COKEMAN, LACTIC, HS TROP, HEPATIC ####[address] [place] [id number] [place]#### PROCALCITONIN ####[facility] , LACTATE/LACTIC ACIDon 2022 Lactate [Moles/Vol] 1.1 mmol/L Normal 0.4-2.0 [facility] Comment on above: Performed By: #### L ACT #### [facility] [address] [address] [address] Epi Goldstein Lactate [Moles/volume] in Se rum or PlasmaOrdered By: Netta Wiseman on 11-05-2022 Lactate [Moles/Vol] 0.9 mmol/L 0.5-2.2 [facility] Lactic Acidon 11-05-2022 Lactate [Moles/Vol] 0.9 mmol/L Normal 0.5-2.2 [facility] Comment on above: Result Comment: PERF ORMED BY:[address] [place], [place] [phone] MEDICAL DIRECTORNATI LAUREN M.D. Performed By: #### B COKEMAN, LACTIC, HS TROP, HEPATIC ####[place] [id number] [facility]#### PROCALCITONIN ####[facility] , Magnesiumon 11-05-2022 Magnesium [Mass/Vol] 1.9 mg/dL Normal 1.9-2.7 [facility] Comment on above: Result Comment: PERF ORMED BY:[address] [address] [place], [place] [phone] MEDICAL DIRECTORNATI LAUREN M.D. Performed By: #### E SR, BMP, MG, CBC ####[facility] [address] [place] [address] [place] Natriuretic peptide B [Mass/ Vol]Ordered By: Netta Wiseman on 11-05-2022 Natriuretic peptide B (Bld) [Mass/Vol] 130.0 pg/mL 5-100 [facility] No Panel InformationOrdered By: Netta Wiseman on 11-05-2022 Arterial Blood pCO2 (Temp correct) 40.4 mm[Hg] 35.0-45.0 [facility] Arterial Blood pH (Temp corrected) 7.41 7.35-7.45 [facility] Arterial Blood pO2 (Temp corrected) 61.0 mm[Hg] 80.0-100.0 [facility] Blood Gas Liter Flow 14 L/min [facility] Procalcitoninon 11-05-2022 Procalcitonin 0.32 ng/mL High 0.00-0.08 [facility] Comment on above: Result Comment: A pr [...] concentrations <2 ng/mL are obtained. Performed at: - [address] [id number] Harness Preparer: Marla Bravo MD, Phone: [phone] BY:[facility] [place], [place] [phone] MEDICAL DIRECTORNATI LAUREN M.D. Performed By: #### B COKEMAN, LACTIC, HS TROP, HEPATIC ####[facility] [address] [place] [id number] [facility]#### PROCALCITONIN ####[facility] , Respiratory (Upper) Panel, P CRon 11-05-2022 Respiratory (Upper) Panel, PCR Normal [facility] Comment on above: Performed By: #### B IOFIRECOVNOTDE, RESP PANEL UPP. ####[facility] [address] [place] [id number] [facility] Serum procalcitonin measurem entOrdered By: Netta Wiseman on 11-05-2022 Procalcitonin [Mass/Vol] 0.32 ng/mL 0.00-0.08 [facility] Comment on above: A procalcitonin (PCT ) [...] any concentrations <2 ng/mL are obtained.Performed at: [facility] [address] [id number] Director: Marla Bravo MD, Phone: [phone] Troponin I High Sensitivityo n 11-05-2022 Troponin I High Sensitivity 17.7 pg/mL Normal 0.0-20.0 [facility] Comment on above: Result Comment: PERF ORMED BY:[address] [place], [place] [phone] MEDICAL DIRECTORNATI LAUREN M.D. Performed By: #### B COKEMAN, LACTIC, HS TROP, HEPATIC ####[facility] [address] [place]#### PROCALCITONIN ####[facility] , XR chest 1V portableon 11-05 XR chest 1V portable Normal [facility] CARDIAC RON ADMITon 023 CK [Catalytic activity/Vol] 67 U/L Normal 39-308 [facility] Comment on above: Performed By: #### B YOSEPH, CMADM #### [facility] [address] [place] [address] Dr. Epi Goldstein CK.MB [Mass/Vol] 0.75 ng/mL Normal <=3.60 [facility] Comment on above: Performed By: #### B YOSEPH, CMADM #### [facility] [address] [place] [address] Dr. Epi Goldstein HSTROP 6.4 pg/mL Normal 4.0-76.1 [facility] Comment on above: Result Comment: CUT- OFF POINTS HAVE BEEN ESTABLISHED BASED ON THE FOURTH UNIVERSAL DEFINITIONS OF MYOCARDIAL INFARCTION. THE UPPER REFERENCE LIMIT (URL) OF TROPONIN, DEFINED THE 99TH PERCENTILE OF cTnI DISTRIBUTION IN A REFERENCE POPULATION, HAS BEEN CONFIRMED THE DECISION THRESHOLD FOR ID DIAGNOSIS. Performed By: #### B YOSEPH, CMADM #### [facility] [address] [place] [address] Dr. Epi Goldstein PRATIK 37 ng/mL Normal 16-96 [facility] Comment on above: Performed By: #### B YOSEPH, CMADM #### [facility] [address] [place] [address] Dr. Epi Goldstein CBC AUTO DIFFon 11-04-2022 BASO # 0.0 103/ul Normal 0.0-0.1 [facility] Comment on above: Performed By: #### C BC #### [facility] [address] [place] [address] Dr. Epi Goldstein Basophils/100 WBC (Bld) 0.2 % Normal 0.2-2.0 [facility] Comment on above: Performed By: #### C BC #### [facility] [address] [address] [address] Epi Goldstein EO # 0.0 103/ul Normal 0.0-0.7 [facility] Comment on above: Performed By: #### C BC #### [facility] [address] [place] [address] Dr. Epi Goldstein Eosinophils/100 WBC (Bld) 0.2 % Critically low 0.9-7.0 [facility] Comment on above: Performed By: #### C BC #### [facility] [address] [place] [address] Dr. Epi Goldstein Erythrocyte distribution width (RBC) [Ratio] 12.5 % Normal 11.0-15.0 [facility] Comment on above: Performed By: #### C BC #### [facility] [address] [place] [address] Dr. Epi Goldstein Hematocrit (Bld) [Volume fraction] 35.9 % Critically low 42.0-54.0 [facility] Comment on above: Performed By: #### C BC #### [facility] [address] [place] [address] Dr. Epi Goldstein Hemoglobin (Bld) [Mass/Vol] 12.0 g/dL Critically low 14.0-18.0 [facility] Comment on above: Performed By: #### C BC #### [facility] [address] [place] [address] Dr. Epi Goldstein IG # 0.13 10e3/ul Critically high 0.00-0.03 [facility] Comment on above: Performed By: #### C BC #### [facility] [address] [place] [address] Dr. Epi Goldstein IG % 0.6 % Critically high 0.0-0.5 [facility] Comment on above: Performed By: #### C BC #### [facility] [address] [place] [address] Dr. Epi Goldstein LYMPH # 2.7 103/ul Normal 1.2-3.8 [facility] Comment on above: Performed By: #### C BC #### [facility] [address] [address] [address] Epi Goldstein Lymphocytes/100 WBC (Bld) 13.0 % Critically low 20.5-60.0 [facility] Comment on above: Performed By: #### C BC #### [facility] [address] [place] [address] Dr. Epi Goldstein MANUAL DIFF REQ NO Normal [facility] Comment on above: Performed By: #### C BC #### [facility] [address] [place] [address] Dr. Epi Goldstein MCH (RBC) [Entitic mass] 30.5 pg Normal 25.9-34.0 [facility] Comment on above: Performed By: #### C BC #### [facility] [address] [place] [address] Dr. Epi Goldstein MCHC (RBC) [Mass/Vol] 33.4 g/dL Normal 29.9-35.2 [facility] Comment on above: Performed By: #### C BC #### [facility] [address] [place] [address] Dr. Epi Goldstein MCV (RBC) [Entitic vol] 91.1 fL Normal 80.0-94.0 [facility] Comment on above: Performed By: #### C BC #### [facility] [address] [place] [address] Dr. Epi Goldstein MONO # 1.7 103/ul Critically high 0.3-0.8 [facility] Comment on above: Performed By: #### C BC #### [facility] [address] [place] [address] Dr. Epi Goldstein Monocytes/100 WBC (Bld) 8.4 % Normal 1.7-12.0 [facility] Comment on above: Performed By: #### C BC #### [facility] [address] [place] [address] Dr. Epi Goldstein NEUT # 16.0 103/ul Critically high 1.4-6.5 [facility] Comment on above: Performed By: #### C BC #### [facility] [address] [place], [place] [address] Dr. Epi Goldstein Neutrophils/100 WBC (Bld) 77.6 % Critically high 43.0-75.0 [facility] Comment on above: Performed By: #### C BC #### [facility] [address] [address] [address] Epi Goldstein Platelet mean volume (Bld) [Entitic vol] 9.9 fL Normal 9.5-13.5 [facility] Comment on above: Performed By: #### C BC #### [facility] [id number] Epi Goldstein PLT 359 103/ul Normal 150-450 [facility] Comment on above: Performed By: #### C BC #### [facility] [address] [address] [address] Epi Goldstein RBC 3.94 106/ul Critically low 4.70-6.10 [facility] Comment on above: Performed By: #### C BC #### [facility] [address] [place], [place] [address] Dr. Epi Goldstein WBC 20.6 103/ul Critically high 4.0-11.0 [facility] Comment on above: Result Comment: revi ewed slide to confirm Performed By: #### C BC #### [facility] [id number] Epi Goldstein CTA CHEST WO W [...] by: SKYE WOODS Date: 2022-11-04 21:02 Normal [facility] CULTURE BLOODon 11-04-2022 Microscopic examination of blood, culture Culture Observations: NO GROWTH AT 5 DAYS. Normal [facility] Comment on above: Performed By: #### L ACT #### [facility] [address] [address] [address] Epi Goldstein Microscopic examination of blood, culture Culture Observations: NO GROWTH AT 5 DAYS. Normal [facility] Comment on above: Performed By: #### L ACT #### [facility] [address] [address] [address] Epi Goldstein D-DIMERon 11-04-2022 D-DIMER 0.96 mg/L FEU Critically high <=0.59 [facility] Comment on above: Performed By: #### D DIM #### [facility] [address] [place] [address] Dr. Epi Goldstein D-DIMER COMMENTS SEE BELOW Normal [facility] Comment on above: Result Comment: Incr [...] hospitalization. Performed By: #### D DIM #### [facility] [address] [place] [address] Dr. Epi Goldstein LACTATE/LACTIC ACIDon 2022 Lactate [Moles/Vol] 0.8 mmol/L Normal 0.4-2.0 [facility] Comment on above: Performed By: #### L ACT #### [facility] [address] [place] [address] Dr. Epi Goldstein PROF CHEM 8 (BAS METB)on Anion gap [Moles/Vol] 9.2 mmol/L Normal [facility] Comment on above: Performed By: #### B YOSEPH, PATYDM #### [facility] [address] [place] [address] Dr. Epi Goldstein Calcium [Mass/Vol] 8.9 mg/dL Normal 8.5-10.[address] [facility] Comment on above: Performed By: #### B YOSEPH, CMADM #### [facility] [address] [place] [address] Dr. Epi Goldstein Chloride [Moles/Vol] 101 mmol/L Normal 98-107 [facility] Comment on above: Performed By: #### B YOSEPH, CMADM #### [facility] [address] [place] [address] Dr. Epi Goldstein CO2 [Moles/Vol] 29.1 mmol/L Normal 21.0-32.0 [facility] Comment on above: Performed By: #### B MP, CMADM #### [facility] [address] [address] [address] Epi Goldstein Creatinine [Mass/Vol] 0.71 mg/dL Normal 0.70-1.30 [facility] Comment on above: Performed By: #### B MP, CMADM #### [facility] [address] [address] [address] Epi Goldstein EGFR-AF VIET[place]ESE >60 Normal >=60 [facility] Comment on above: Performed By: #### B MP, CMADM #### [facility] [address] [address] [address] Epi Goldstein EGFR-NON AF VIETNAMESE >60 Normal >=60 [facility] Comment on above: Performed By: #### B YOSEPH, CMADM #### [facility] [address] [address] [address] Epi Goldstein Glucose [Mass/Vol] 105 mg/dL Normal 74-106 [facility] Comment on above: Performed By: #### B YOSEPH, CMADM #### [facility] [address] [address] [address] Epi Goldstein Potassium [Moles/Vol] 3.3 mmol/L Critically low 3.5-5.1 [facility] Comment on above: Performed By: #### B YOSEPH, CMADM #### [facility] [address] [address] [address] Epi Goldstein Sodium [Moles/Vol] 136 mmol/L Normal 136-[address] [facility] Comment on above: Performed By: #### B MP, CMADM #### [facility] [address] [address] [address] Epi Goldstein Urea nitrogen [Mass/Vol] 10.0 mg/dL Normal 7.0-18.0 [facility] Comment on above: Performed By: #### B MP, CMADM #### [facility] [address] [address] [address] Epi Goldstein Urea nitrogen/Creatinine [Mass ratio] 14.1 mg/mg Normal [facility] Comment on above: Performed By: #### B MP, CMADM #### [facility] [address] [place] [address] Dr. Epi Goldstein RESPIRATORY PANEL PLUSon Adenovirus Not detected Normal NOT DETECTED [facility] Comment on above: Performed By: #### R SPLUS #### [facility] [address] [place] [address] Dr. Epi Miller Parapertusis Not detected Normal NOT DETECTED [facility] Comment on above: Performed By: #### R SPLUS #### [facility] [address] [place] [address] Dr. Epi Miller Pertussis Not detected Normal NOT DETECTED [facility] Comment on above: Performed By: #### R SPLUS #### [facility] [address] [place] [address] Dr. Epi Goldstein Chlamydia Pneumoniae Not detected Normal NOT DETECTED [facility] Comment on above: Performed By: #### R SPLUS #### [facility] [address] [place] [address] Dr. Epi Goldstein Coronavirus 229E Not detected Normal NOT DETECTED [facility] Comment on above: Performed By: #### R SPLUS #### [facility] [address] [place] [address] Dr. Epi Goldstein Coronavirus HKU1 Not detected Normal NOT DETECTED [facility] Comment on above: Performed By: #### R SPLUS #### [facility] [address] [place] [address] Dr. Epi Goldstein Coronavirus NL63 Not detected Normal NOT DETECTED [facility] Comment on above: Performed By: #### R SPLUS #### [facility] [address] [place] [address] Dr. Epi Goldstein Coronavirus OC43 Not detected Normal NOT DETECTED [facility] Comment on above: Performed By: #### R SPLUS #### [facility] [address] [place] [address] Dr. Epi Goldstein Influenza A H1 Not detected Normal NOT DETECTED [facility] Comment on above: Performed By: #### R SPLUS #### [facility] [address] [address] [address] Epi Goldstein Influenza A H1 2009 Not detected Normal NOT DETECTED [facility] Comment on above: Performed By: #### R SPLUS #### [facility] [address] [address] [address] Epi Goldstein Influenza A H3 Not detected Normal NOT DETECTED [facility] Comment on above: Performed By: #### R SPLUS #### [facility] [address] [place] [address] Dr. Epi Goldstein Influenza B Not detected Normal NOT DETECTED [facility] Comment on above: Performed By: #### R SPLUS #### [facility] [address] [place] [address] Dr. Epi Goldstein Metapneumovirus Not detected Normal NOT DETECTED [facility] Comment on above: Performed By: #### R SPLUS #### [facility] [address] [place] [address] Dr. Epi Goldstein Mycoplas. Pneumoniae Not detected Normal NOT DETECTED [facility] Comment on above: Performed By: #### R SPLUS #### [facility] [address] [place] [address] Dr. Epi Goldstein Parainfluenza 1 Not detected Normal NOT DETECTED [facility] Comment on above: Performed By: #### R SPLUS #### [facility] [address] [place] [address] Dr. Epi Goldstein Parainfluenza 2 Not detected Normal NOT DETECTED [facility] Comment on above: Performed By: #### R SPLUS #### [facility] [address] [place] [address] Dr. Epi Goldstein Parainfluenza 3 Not detected Normal NOT DETECTED [facility] Comment on above: Performed By: #### R SPLUS #### [facility] [address] [place] [address] Dr. Epi Goldstein Parainfluenza 4 Not detected Normal NOT DETECTED [facility] Comment on above: Performed By: #### R SPLUS #### [facility] [address] [place] [address] Dr. Epi Goldstein Rhino/Enterovirus Not detected Normal NOT DETECTED [facility] Comment on above: Performed By: #### R SPLUS #### [facility] [address] [place] [address] Dr. Epi Goldstein RP2 Header 1 RESPIRATORY PANEL: VIRUSES Normal [facility] Comment on above: Performed By: #### R SPLUS #### [facility] [address] [place] [address] Dr. Epi Goldstein RP2 Header 2 RESPIRATORY PANEL: BACTERIA Normal [facility] Comment on above: Performed By: #### R SPLUS #### [facility] [address] [place] [address] Dr. Epi Goldstein RSV Not detected Normal NOT DETECTED [facility] Comment on above: Performed By: #### R SPLUS #### [facility] [address] [place] [address] Dr. Epi Goldstein SARS-CoV-2 (COVID-19) RNA ROWENA+probe Ql (Unsp spec) Not detected Normal NOT DETECTED [facility] Comment on above: Performed By: #### R SPLUS #### [facility] [address] [place] [address] Dr. Epi Goldstein Covid-19 PCR ([facility])on 08-10 SARS-CoV-2 (COVID-19) RNA ROWENA+probe Ql (Unsp spec) Not detected Normal NOT DETECTED [facility] Comment on above: Result Comment: When [...] for this test is supported by the [employer]'s declaration that [...] used). Performed By: #### L ACT #### [facility] [address] [place] [address] Dr. Epi Goldstein INFLUENZA A AND B AGon 08-27 [facility] SEE BELOW Normal [facility] Comment on above: Result Comment: Nega tive for Flu A protein angiten. Infection due to Flu A cannot be ruled out. Flu A angiten in the sample may be below the detection limit of the test. Performed By: #### L ACT #### [facility] [address] [place] [address] Dr. Epi Gold[facility] Normal [facility] Comment on above: Result Comment: Nega tive for Flu B protein antigen. Infection due to Flu B cannot be ruled out. Flu B antigen in the sample may be below the detection limit of the test. Performed By: #### L ACT #### [facility] [address] [place] [address] Dr. Epi Goldstein INFLUENZA A AG Negative Normal NEGATIVE SEE COMMENT [facility] Comment on above: Performed By: #### L ACT #### [facility] [address] [place] [address] Dr. Epi Goldstein INFLUENZA B AG Negative Normal NEGATIVE SEE COMMENT [facility] Comment on above: Performed By: #### L ACT #### [facility] [address] [place] [address] Dr. Epi Goldstein XR CHEST 1 Von [...] by: LORI RODRIGUEZ Date: 2022-08-27 20:19 Normal [facility] In office Testingon 08-24-19 23 In office Testing [id number]#1.00CD:1 27 [facility] Consenton 08-09-2022 Consent [id number]#1.00CD:12 7 [facility] Registrationon 08-09-2022 Registration [id number]#1.00CD:12 7 [facility] COVID/FLU/RSV RT-PCRon 07-07 SARS-CoV-2 (COVID-19) RNA ROWENA+probe Ql (Unsp spec) Positive [facility] [employer] Other COVID/FLU/RSV RT-PCR Negative [facility] [employer] Other Consenton 05-25-2022 Consent [id number]#1.00CD:12 7 [facility] Registrationon 05-25-2022 Registration [id number]#1.00CD:12 7 [facility] CBC AUTO DIFFon 03-12-2022 BASO # 0.1 103/ul Normal 0.0-0.1 [facility] Comment on above: Performed By: #### C BC #### [facility] [address] [place] [address] Dr. Epi Goldstein Basophils/100 WBC (Bld) 0.9 % Normal 0.2-2.0 [facility] Comment on above: Performed By: #### C BC #### [facility] [address] [place] [address] Dr. Epi Goldstein EO # 0.4 103/ul Normal 0.0-0.7 [facility] Comment on above: Performed By: #### C BC #### [facility] [address] [place] [address] Dr. Epi Goldstein Eosinophils/100 WBC (Bld) 4.4 % Normal 0.9-7.0 [facility] Comment on above: Performed By: #### C BC #### [facility] [address] [place] [address] Dr. Epi Goldstein Erythrocyte distribution width (RBC) [Ratio] 12.4 % Normal 11.0-15.0 [facility] Comment on above: Performed By: #### C BC #### [facility] [address] [place] [address] Dr. Epi Goldstein Hematocrit (Bld) [Volume fraction] 35.1 % Critically low 42.0-54.0 [facility] Comment on above: Performed By: #### C BC #### [facility] [address] [place] [address] Dr. Epi Goldstein Hemoglobin (Bld) [Mass/Vol] 11.8 g/dL Critically low 14.0-18.0 [facility] Comment on above: Performed By: #### C BC #### [facility] [address] [place] [address] Dr. Epi Goldstein IG # 0.02 10e3/ul Normal 0.00-0.03 [facility] Comment on above: Performed By: #### C BC #### [facility] [address] [place] [address] Dr. Epi Goldstein IG % 0.2 % Normal 0.0-0.5 [facility] Comment on above: Performed By: #### C BC #### [facility] [address] [place] [address] Dr. Epi Goldstein LYMPH # 2.9 103/ul Normal 1.2-3.8 [facility] Comment on above: Performed By: #### C BC #### [facility] [address] [place] [address] Dr. Epi Goldstein Lymphocytes/100 WBC (Bld) 29.8 % Normal 20.5-60.0 [facility] Comment on above: Performed By: #### C BC #### [facility] [address] [place] [address] Dr. Epi Goldstein MANUAL DIFF REQ NO Normal [facility] Comment on above: Performed By: #### C BC #### [facility] [address] [place] [address] Dr. Epi Goldstein MCH (RBC) [Entitic mass] 30.7 pg Normal 25.9-34.0 [facility] Comment on above: Performed By: #### C BC #### [facility] [address] [place] [address] Dr. Epi Goldstein MCHC (RBC) [Mass/Vol] 33.6 g/dL Normal 29.9-35.2 [facility] Comment on above: Performed By: #### C BC #### [facility] [address] [place] [address] Dr. Epi Goldstein MCV (RBC) [Entitic vol] 91.4 fL Normal 80.0-94.0 [facility] Comment on above: Performed By: #### C BC #### [facility] [address] [place] [address] Dr. Epi Goldstein MONO # 0.8 103/ul Normal 0.3-0.8 [facility] Comment on above: Performed By: #### C BC #### [facility] [address] [place] [address] Dr. Epi Goldstein Monocytes/100 WBC (Bld) 8.1 % Normal 1.7-12.0 [facility] Comment on above: Performed By: #### C BC #### [facility] [address] [place] [address] Dr. Epi Goldstein NEUT # 5.5 103/ul Normal 1.4-6.5 [facility] Comment on above: Performed By: #### C BC #### [facility] [address] [place] [address] Dr. Epi Goldstein Neutrophils/100 WBC (Bld) 56.6 % Normal 43.0-75.0 [facility] Comment on above: Performed By: #### C BC #### [facility] [address] [place] [address] Dr. Epi Goldstein Platelet mean volume (Bld) [Entitic vol] 10.2 fL Normal 9.5-13.5 [facility] Comment on above: Performed By: #### C BC #### [facility] [address] [address] [address] Epi Goldstein PLT 237 103/ul Normal 150-450 [facility] Comment on above: Performed By: #### C BC #### [facility] [address] [address] [address] Epi Goldstein RBC 3.84 106/ul Critically low 4.70-6.10 [facility] Comment on above: Performed By: #### C BC #### [facility] [address] [address] [address] Epi Goldstein WBC 9.7 103/ul Normal 4.0-11.0 [facility] Comment on above: Performed By: #### C BC #### [facility] [address] [place] [address] Dr. Epi Goldstein PROF CHEM 8 (BAS METB)on Anion gap [Moles/Vol] 13.2 mmol/L Normal [facility] Comment on above: Performed By: #### B MP #### [facility] [address] [place] [address] Dr. Epi Goldstein Calcium [Mass/Vol] 8.3 mg/dL Critically low 8.5-10.1 [facility] Comment on above: Performed By: #### B MP #### [facility] [address] [place] [address] Dr. Epi Goldstein Chloride [Moles/Vol] 105 mmol/L Normal 98-107 [facility] Comment on above: Performed By: #### B MP #### [facility] [address] [place] [address] Dr. Epi Goldstein CO2 [Moles/Vol] 26.7 mmol/L Normal 21.0-32.0 [facility] Comment on above: Performed By: #### B MP #### [facility] [address] [place] [address] Dr. Epi Goldstein Creatinine [Mass/Vol] 0.76 mg/dL Normal 0.70-1.30 [facility] Comment on above: Performed By: #### B MP #### [facility] [address] [place] [address] Dr. Epi Goldstein EGFR-AF VIETNAMESE >60 Normal >=60 [facility] Comment on above: Performed By: #### B MP #### [facility] [address] [place] [address] Dr. Epi Goldstein EGFR-NON AF VIETNAMESE >60 Normal >=60 [facility] Comment on above: Performed By: #### B MP #### [facility] [address] [address] [address] Epi Goldstein Glucose [Mass/Vol] 127 mg/dL Critically high 74-106 [facility] Comment on above: Performed By: #### B MP #### [facility] [address] [place] [address] Dr. Epi Goldstein Potassium [Moles/Vol] 3.9 mmol/L Normal 3.5-5.1 [facility] Comment on above: Performed By: #### B MP #### [facility] [address] [place] [address] Dr. Epi Goldstein Sodium [Moles/Vol] 141 mmol/L Normal 136-145 [facility] Comment on above: Performed By: #### B MP #### [facility] [address] [place] [address] Dr. Epi Goldstein Urea nitrogen [Mass/Vol] 14.0 mg/dL Normal 7.0-18.0 [facility] Comment on above: Performed By: #### B MP #### [facility] [address] [place] [address] Dr. Epi Goldstein Urea nitrogen/Creatinine [Mass ratio] 18.4 mg/mg Normal [facility] Comment on above: Performed By: #### B MP #### [facility] [address] [place], [place] [id number] Dr. Epi Goldstein US JAMES DOP LEG [...] by: LORI DOWNEY Date: 2022-03-12 13:59 Normal [facility] XR TIB_FIB LT 2Von 2 XR TIB_FIB [...] MERI SIMPSON Date: 2022-03-12 14:19 Normal [facility] CNOVon 12-14-2018 CNOV Office Visit (PAINLN ) ----- LORI ANTON ([id number]) 1965 M Date Time Provider Department 12/14/18 10:15 AM STEVE WILSON During your visit today, we recorded the following information about you: Pulse Weight 63/minute 104.8 kg Steve Wilson DO 12/14/2018 10:53 AM Signed [facility] Initial Evaluation December 14, 2018 - 9:54 AM This appointment was requested by Bryce CUADRA, for my medical opinion regarding? the evaluation and management of the patient's LORI Anton problems, and my final recommendations will be communicated to the requesting health care provider by way of the shared medical record for internal providers or letter via the [employer] for external providers. SUBJECTIVE: LORI Anton a 53 year old presents to [facility] Pain Management Department, accompanied by self [...] No history of dysuria, frequency or incontinence COMMERCIAL REPRESENTATIVE: NA MUSCULOSKELETAL: LBP SKIN:Negative for lesions, rash, [...] supervised home exercise program (HEP): No 5. Field Agronomist: No Passive conservative therapy lasting 6 weeks [...] for allowing me to participate in LORI Desean's care. Steve Wilson, December 14, 2018 Referring Provider: BRYCE GLASS (KHALIF) [[id number]] Allergies As of Date: 12/14/2018 Noted Allergy [...] knee [M25.561, G89.29] Order(s):CONSULT TO PHYSICAL THERAPY [9099] Order #: [id number]: 1 tiZANidine (ZANAFLEX) 4 mg tabletTake 1 [...] by STEVE WILSON DO on 12/14/18 Normal [facility] CN Office Visit (LOORRM ) ----- LORI ANTON ([id number]) 1965 M Date Time Provider Department 12/14/18 9:00 AM BRYCE GLASS) LOORRM During your visit today, we recorded the [...] CONSULT TO PHYSICAL THERAPY [9032] Order #: [id number]: 1 CONSULT TO PAIN MGT ANESTHESIA [903016] Order #: [id number]: 1 Prescriptions as of 12/14/2018 Sig: CARVEDILOL [...] Status:Closed by BRYCE GLASS on 12/14/18 Normal [facility] PROGRESSon 12-14-2018 Protein mass conc HNO ID: [id number] Author: Steve Wilson Service: ? Author Type: Physician Type: Progress Notes Filed: 12/14/2018 10:53 AM Note Text: [facility] Initial Evaluation December 14, 2018 - 9:54 AM This appointment was requested by Bryce CUADRA, for my medical opinion regarding? the evaluation and management of the patient's LORI Anton problems, and my final recommendations will be communicated to the requesting health care provider by way of the shared medical record for internal providers or letter via the [employer] for external providers. SUBJECTIVE: LORI Anton a 53 year old presents to [facility] Department, accompanied by self [...] No history of dysuria, frequency or incontinence COMMERCIAL REPRESENTATIVE: NA MUSCULOSKELETAL: LBP SKIN:Negative for lesions, rash, [...] supervised home exercise program (HEP): No 5. Field Agronomist: No Passive conservative therapy lasting 6 weeks [...] Suboxone - December 14, 2018 by Steve Wilson, HPI AND ASSESSMENT: LORI Anton is a [...] Steve Wilson, DO December 14, 2018 Normal [facility] Protein mass conc HNO ID: [id number] Author: Bryce Glass ([place]) Service: ? Author Type: Physician Engine Test Cell Technician Type: Progress Notes Filed: 12/14/2018 9:30 AM [...] his back. PROCEDURE: None. Bryce Glass PA-C [facility] CNOVon 10-11-2018 CNOV Office Visit (LOORRM ) ----- LORI ANTON ([id number]) 1965 M Date Time Provider Department 10/11/18 [...] experiencing run in your family? 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 Service: ? Author [...] the injections well. Theodore Gonzalez Jr, MD Normal [facility] Protein mass conc HNO ID: [id number] Author: Pallavi Pritchett (Rt) Vinh Glass Service: ? Author Type: Last Picker Type: Progress Notes Filed: 10/11/2018 10:07 AM [...] Wendy October 11, 2018 10:07 AM Normal [facility] XR KNEE 4V AP/PA/LAT/MERCH B ILon [...] age. 2.1 cm left posterolateral joint body. Occupational Therapy Teacher: RUPESH Transcribe Date/Time: Oct 11 2018 10:14A Dictated by : ACE BUSTAMANTE MD This examination was interpreted and the report reviewed and electronically signed by: ACE BUSTAMANTE MD on Oct 11 2018 10:18AM EST [id number] Normal [facility] Vital Signs Date Time Vital Sign Value Performing Clinician Facility 07-31-2023 19:51-0500 Body height 190.5 cm Shaista Aichholz Work Phone: [facility] 07-31-2023 19:51-0500 Body temperature 100.1 [degF] Shaista Aichholz Work Phone: [facility] 07-31-2023 19:51-0500 Body weight 92.98 kg Shaista Aichholz Work Phone: [facility] 07-31-2023 19:51-0500 Diastolic blood pressure 78 mm[Hg] Shaista Aichholz Work Phone: [facility] 07-31-2023 19:51-0500 Heart rate 96 /min Shaista Aichholz Work Phone: [facility] 07-31-2023 19:51-0500 Respiratory rate 16 /min Shaista Aichholz Work Phone: [facility] 07-31-2023 19:51-0500 SaO2% (BldA) [Mass fraction] 98 % Shaista Aichholz Work Phone: [facility] 07-31-2023 19:51-0500 Systolic blood pressure 133 mm[Hg] Shaista Aichholz Work Phone: [facility] 12-28-2022 08:30-0400 Body height 190.5 cm Ismael Huitron Other [facility] Other 12-28-2022 08:30-0400 Body mass index (BMI) [Ratio] 25.77 kg/m2 Ismael Huitron Other [facility] Other 12-28-2022 08:30-0400 Body temperature 98.1 [degF] Ismael Juárezban Other [facility] Other 12-28-2022 08:30-0400 Body weight 93.53 kg Ismael Huitron Other [facility] Other 12-28-2022 08:30-0400 Diastolic blood pressure 92 mm[Hg] Ismael Juárezban Other [facility] Other 12-28-2022 08:30-0400 Respiratory rate 20 /min Ismael Juárezban Other [facility] Other 12-28-2022 08:30-0400 SaO2% (BldA) [Mass fraction] 98 % Ismael Huitron Other [facility] Other 12-28-2022 08:30-0400 Systolic blood pressure 152 mm[Hg] Ismael Huitron Other [facility] Other 12-08-2022 21:30-0400 Diastolic blood pressure 87 mm[Hg] Shaista Aichholz Work Phone: [facility] 12-08-2022 21:30-0400 Heart rate 65 /min Shaista Aichholz Work Phone: [facility] 12-08-2022 21:30-0400 Respiratory rate 18 /min Shaista Aichholz Work Phone: [facility] [facility] 12-08-2022 21:30-0400 SaO2% (BldA) [Mass fraction] 96 % Shaista Aichholz Work Phone: [facility] 12-08-2022 21:30-0400 Systolic blood pressure 134 mm[Hg] Shaista Aichholz Work Phone: [facility] 12-08-2022 19:30-0400 Body temperature 98.1 [degF] Shaista Aichholz Work Phone: [facility] 12-08-2022 17:36-0400 Body height 190.5 cm Shaista Aichholz Work Phone: [facility] 12-08-2022 17:36-0400 Body weight 91.1 kg Shaista Aichholz Work Phone: [facility] 11-21-2022 12:00-0400 Body temperature 98.1 [degF] Shaista Aichholz Work Phone: [facility] 11-21-2022 12:00-0400 Diastolic blood pressure 73 mm[Hg] Shaista Aichholz Work Phone: [facility] 11-21-2022 12:00-0400 Heart rate 74 /min Shaista Aichholz Work Phone: [facility] 11-21-2022 12:00-0400 Inhaled oxygen flow rate 4 L/min Shaista Aichholz Work Phone: [facility] 11-21-2022 12:00-0400 Respiratory rate 18 /min Shaista Aichholz Work Phone: [facility] 11-21-2022 12:00-0400 SaO2% (BldA) [Mass fraction] 95 % Shaista Aichholz Work Phone: [facility] 11-21-2022 12:00-0400 Systolic blood pressure 135 mm[Hg] Shaista Aichholz Work Phone: [facility] 11-21-2022 03:52-0400 Body weight 97.1 kg Shaista Aichholz Work Phone: [facility] 11-18-2022 09:00-0400 Inhaled oxygen concentration 40 % Shaista Aichholz Work Phone: [facility] 11-17-2022 13:54-0400 Body height 190.5 cm Shaista Corona Work Phone: [facility] 07-07-2022 17:45-0500 Body height 190.5 cm Supriya Kevin Other [facility] Other 07-07-2022 17:45-0500 Body mass index (BMI) [Ratio] 28.12 kg/m2 Supriya Kevin Other [facility] Other 07-07-2022 17:45-0500 Body temperature 100.5 [degF] Supriya Brown Other [facility] Other 07-07-2022 17:45-0500 Body weight 102.06 kg Supriya Brown Other [facility] Other 07-07-2022 17:45-0500 Diastolic blood pressure 84 mm[Hg] Supriya Brown Other [facility] Other 07-07-2022 17:45-0500 Respiratory rate 18 /min Supriya Brown Other [facility] Other 07-07-2022 17:45-0500 SaO2% (BldA) [Mass fraction] 97 % Supriya Brown Other [facility] Other 07-07-2022 17:45-0500 Systolic blood pressure 123 mm[Hg] Supriya Brown Other [facility] Other Encounters Encounter Date Encounter Type Care Provider Facility Start: 10-31-2023 End: 10-31-2023 ambulatory SHAISTA CORONA Not Available Start: 08-30-2023 End: 08-30-2023 ambulatory SHAISTA ROBINHOLZ Not Available Start: 07-31-2023 End: 08-01-2023 Emergency department patient visit Ej Garcia Facility:[facility] Start: 07-31-2023 End: 07-31-2023 Emergency department patient visit Shaista Robinisiahsushma Work Phone: [facility] Work Phone: Start: 05-23-2023 End: 05-24-2023 ambulatory Gregg PATTEN [facility] Start: 12-28-2022 End: 12-28-2022 ambulatory Ismael Huitron Other [facility] Other Start: 12-28-2022 Office outpatient visit 25 minutes Bakaridevon Huitron [facility] Start: 12-26-2022 End: 12-26-2022 ambulatory Shaista Whittaker Jeannettesheila Facility:[facility] Start: 12-26-2022 End: 12-26-2022 ambulatory Shaista Whittaker Jeannettesheila Work Phone: [facility] Work Phone: Start: 12-26-2022 End: 12-26-2022 Patient encounter procedure Shaista Corona Work Phone: [facility] Work Phone: Start: 12-15-2022 End: 12-16-2022 ambulatory Rosa CORTEZ [facility] Start: 12-08-2022 End: 12-08-2022 Emergency department patient visit Lisha Silva Facility:[facility] Start: 12-08-2022 End: 12-08-2022 Emergency department patient visit Shaista Robinisiahsushma Work Phone: [facility] Work Phone: Start: 11-05-2022 End: 11-21-2022 Evaluation and management of inpatient Sanjay Holt Facility:[facility] Start: 11-05-2022 End: 11-21-2022 Evaluation and management of inpatient Shaista Corona Work Phone: [facility] Work Phone: Start: 11-04-2022 End: 11-05-2022 ambulatory BROOD HATCHERY MANAGER SHAISTA CORONA Facility:[facility] Start: 11-03-2022 End: 11-03-2022 ambulatory BROOD HATCHERY MANAGER SHAISTA CJ Facility:[facility] Start: 08-27-2022 End: 08-27-2022 ambulatory CATRACHITO ALONZO . Facility:[facility] Start: 08-09-2022 End: 08-10-2022 ambulatory Gregg PATTEN Facility:[facility] Start: 07-07-2022 End: 07-07-2022 ambulatory Supriya Brown Other [facility] Other Start: 07-07-2022 Office outpatient ne w 20 minutes Supriya Brown [facility] Start: 05-25-2022 End: 05-26-2022 ambulatory Gregg PATTEN Facility:[facility] Start: 03-12-2022 End: 03-12-2022 ambulatory RADHA CORONA Facility: Procedures Date Procedure Procedure Detail Performing Clinician Start: 07-31-2023 SARS-CoV-2, Influenz a & RSV (PCR) Shaista Robinisiahsushma Work Phone: Start: 12-26-2022 Plain chest X-ray Shaista Cj Work Phone: Start: 12-08-2022 CT angiography of thorax Shaista Cj Work Phone: Start: 11-20-2022 Plain chest X-ray Shaista Jeannettesanjaytheron Work Phone: Start: 11-18-2022 Plain chest X-ray Shaista Lobitotheron Work Phone: Start: 11-17-2022 Aerobic microbial culture Shaistadeo Corona Work Phone: Start: 11-17-2022 Blood culture [...] Start: 11-10-2022 End: 11-10-2022 Plain chest X-ray Shaista Corona Work Phone: Start: 11-09-2022 End: 11-09-2022 Plain chest X-ray Shaista Corona Work Phone: Start: 11-08-2022 End: 11-08-2022 [...] Date Care Activity Detail Author Start: 11-21-2022 [facility] Start: 11-20-2022 Administration of prophylactic treatment [facility] Start: 11-19-2022 Physical therapy procedure [facility] Start: 11-17-2022 Blood culture for bacteria, including anaerobic screen Blood Culture [facility] Start: 11-17-2022 Fungal Culture Result 2 Fungal Culture Result 2 [facility] Start: 11-17-2022 Mycology culture [facility] Start: 11-14-2022 [facility] Start: 11-06-2022 Referral to infectious diseases physician [facility] Start: 11-05-2022 Drainage of Right Pleural Cavity with Drainage Device, Percutaneous Approach Drainage of Right Pleural Cavity with Drainage Device, Percutaneous Approach [facility] Start: 11-05-2022 Insertion of Endotracheal Airway into Trachea, Via Natural or Artificial Opening Insertion of Endotracheal Airway into Trachea, Via Natural or Artificial Opening [facility] Start: 11-05-2022 Insertion of Infusion Device into Superior Vena Cava, Percutaneous Approach Insertion of Infusion Device into Superior Vena Cava, Percutaneous Approach [facility] Start: 11-05-2022 Inspection of Tracheobronchial Tree, Via Natural or Artificial Opening Endoscopic Inspection of Tracheobronchial Tree, Via Natural or Artificial Opening Endoscopic [facility] Start: 11-05-2022 Irrigation of Respiratory Tract using Irrigating Substance, Via Natural or Artificial Opening Endoscopic, Diagnostic Irrigation of Respiratory Tract using Irrigating Substance, Via Natural or Artificial Opening Endoscopic, Diagnostic [facility] Start: 11-05-2022 Respiratory Ventilation, Greater than 96 Consecutive Hours Respiratory Ventilation, Greater than 96 Consecutive Hours [facility] Start: 11-05-20[address] Sleep disorder [address] [facility] Start: 11-05-2022 Consultation [facility] Start: 11-05-2022 Hospital admission [facility] Fungus identified in Unspecified specimen by Culture [facility] Mycobacterium sp identified in Unspecified specimen by Organism specific culture [facility] Patient Education [facility] Work Phone: Patient referral [facility] Work Phone: XR Chest 2 Views [facility] Payers Date Payer Category Payer Self-pay [id number] 1965 Unknown [id number] 2.16.84 [id number] 1965 Unknown [id number] 2.16.84 [id number] 1965 Unknown [id number] 2.16.84 [id number] 1965 Unknown [id number] 2.16.84 [id number] 1965 Unknown [id number] 2.16.84 [id number] 1965 Unknown [id number] 2.16.84 [id number] 1957 [employer] Blue Shield [id number] Unknown [id number] 2.16.8 [id number] Unknown [id number] 2.16.8 [id number] Unknown [id number] 2.16.8 [id number] Unknown [id number] 2.16.8 [id number] Social History Date Type Detail Facility Sex Assigned At [facility] Other Start: 11-07-2022 End: 12-08-2022 Tobacco smoking status NHIS Smoker (finding) [facility] Start: 1965 Sex Assigned At Male F [facility] Start: 07-31-2023 Tobacco smoking stat us NHIS Current some day smoker [facility] Goals Date Patient Goal Desired Activity /State Functional Status Date Assessment Result Facility 11-21-2022 Functional status 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 Baseline [facility] Work Phone: Mental Status Date Assessment Result Facility 11-21-2022 Cognitive function Cognitive Sta tus Patient is Progressing Toward Baseline [facility] Work Phone: Clinical Notes 07-07-2022 to 12-28-2022 Note Date & Type Note Facility 12-28-2022 Evaluation note Encounter Date Diagnosis Assessment Notes Dec, Pneumonia of right lower lobe due to infectious organism (ICD-10 - J18.9) Dec, History of pneumothorax (ICD-10 - Z87.09) Dec, Tobacco use disorder (ICD-10 - F17.200) [facility] Other 05-15-2023 Progress note Author Ismael Huitron [facility] November 21, 2022 11:17am Note Date/Time November 21, 2022 11:17 am [facility] [address] [place] [address] Pulmonology Progress Note Signed Patient: Lori Anton MR#: [id number] : 1965 Acct:[id number] Age/Sex: 57 / M Adm Date: 3 Loc: Room: [address] [place] [address] Type: ADM IN Attending Dr: Rubi Ramos [...] after that Documented By: Ismael Huitron MD 11/21/221114 Signed By: <Electronically signed by Ismael Huitron MD> 11/21/22 1117 [facility] Work Phone: 1(447) 102-163905-15-2023 Progress note Author Sanjay Holt [facility] November 21, 2022 9:14am Note Date/Time November 21, 2022 9:15a m [facility] [address] [place] [address] Infect. Disease Progress Note Signed Patient: Lori Anton MR#: [id number] : 1965 Acct:[id number] Age/Sex: 57 / M Adm Date: 3 Loc: Room: [address] [place] [address] Type: ADM IN Attending Dr: Rubi Ramos [...] 2 Mg Tab.Subl) 2 mg SUBLINGUAL BID [facility] Stop: 05/18/23 09:26 Last Admin: 11/20/22 22:02 Dose: 2 mg Docusate Sodium (Docusate 100 Mg Capsule) 100 mg PO BID PRN PRN Reason: Constipation Stop: 11/18/23 10:23 Enoxaparin Sodium (Enoxaparin 40 Mg/0.4 Ml Syringe) 40 mg SUBCUT DAILY@1000 [facility] Stop: 11/06/23 09:59 Last Admin: 11/20/22 09:03 Dose: 40 mg Fluoxetine HCl (Fluoxetine 20 Mg Capsule) 40 mg PO HS [facility] Stop: 11/20/23 21:59 Last Admin: 11/20/22 22:02 Dose: 40 mg Fluoxetine HCl (Fluoxetine 20 Mg Capsule) 20 mg PO DAILY@0600 [facility] Stop: 11/20/23 05:59 Last Admin: 11/21/22 05:46 Dose: 20 mg Heparin Sodium (Porcine) (Heparin-Lock 500 Unit/5 Ml Syringe) 0 unit IV-PUSH QSHIFT [facility] Stop: 11/14/23 21:59 Last Admin: 11/21/22 05:46 Dose: 500 unit Linezolid (Zyvox) 600 mg in 300 mls @ 300 mls/hr IV Q12H [facility] Last Admin: 11/20/22 22:02 Dose: 300 mls/hr Meropenem (Merrem) 1 gm in 100 mls @ 33.333 mls/hr IV Q8H [facility] Last Admin: 11/21/22 03:48 Dose: 33.3 mls/hr Lidocaine HCl (Lidocaine 1% Pf 5 Ml Inj.Zara) 10 ml INFILTRATN ONCE PRN PRN Reason: Pain Metoprolol Tartrate (Metoprolol Tartrate 12.5 Mg Tablet) 12.5 mg PO BID [facility] Stop: 11/18/23 20:59 Last Admin: 11/20/22 22:02 [...] <Electronically signed by MD Sanjay Holt> 11/21/2214 [facility] Work Phone: 1(740) 928-863605-14-2023 Progress note Author Shant Villegas [facility] November 20, 2022 3:35pm Note Date/Time November 20, 2022 3:35p m [facility] [address] [place] [address] Hospitalist Progress Note Signed Patient: Lori Anton MR#: [id number] : 1965 Acct:[id number] Age/Sex: 57 / M Adm Date: 3 Loc: 4P Room: [address] [place] [address] Type: ADM IN Attending Dr: Shant Villegas [...] cough, and right-sided chest pain to the [facility] ED and Transferred for the evaluation [...] Plan . Documented By: Shant Villegas MD 11/20/22 153 Signed By: <Electronically signed by Shant Villegas MD> 11/20/22 1535 [facility] Work Phone: [phone]) 596-341405-14-2023 Progress note Author Ismael Huitron [facility] November 20, 2022 1:40pm Note Date/Time November 20, 2022 1:40p m [facility] [address] [place] [address] Pulmonology Progress Note Signed Patient: Lori Anton MR#: [id number] : 1965 Acct:[id number] Age/Sex: 57 / M Adm Date: 3 Loc: 4P Room: [address] [place] [address] Type: ADM IN Attending Dr: Shant Villegas [...] planning Documented By: Ismael Huitron MD 11/20/22 1338 Signed By: <Electronically signed by Ismael Huitron MD> 11/20/22 1340 [facility] Work Phone: 1([phone] 184-159705-14-2023 Progress note Author Sanjay Holt [facility] November 20, 2022 9:05am Note Date/Time November 20, 2022 9:05a m [facility] [address] [place] [address] Infect. Disease Progress Note Signed Patient: Loir Anton MR#: [id number] : 1965 Acct:[id number] Age/Sex: 57 / M Adm Date: 3 Loc: Room: [address] [place] [address] Type: ADM IN Attending Dr: Shant Villegas [...] 2 Mg Tab.Subl) 2 mg SUBLINGUAL BID [facility] Stop: 05/18/23 09:26 Last Admin: 11/20/22 08:23 Dose: 2 mg Docusate Sodium (Docusate 100 Mg Capsule) 100 mg PO BID PRN PRN Reason: Constipation Stop: 11/18/23 10:23 Enoxaparin Sodium (Enoxaparin 40 Mg/0.4 Ml Syringe) 40 mg SUBCUT DAILY@1000 [facility] Stop: 11/06/23 09:59 Last Admin: 11/19/22 09:06 Dose: 40 mg Fluoxetine HCl (Fluoxetine 20 Mg Capsule) 40 mg PO HS [facility] Stop: 11/20/23 21:59 Fluoxetine HCl (Fluoxetine 20 Mg Capsule) 20 mg PO DAILY@0600 [facility] Stop: 11/20/23 05:59 Last Admin: 11/20/22 06:04 Dose: 20 mg Heparin Sodium (Porcine) (Heparin-Lock 500 Unit/5 Ml Syringe) 0 unit IV-PUSH QSHIFT [facility] Stop: 11/14/23 21:59 Last Admin: 11/20/22 06:04 Dose: 2,000 unit Linezolid (Zyvox) 600 mg in 300 mls @ 300 mls/hr IV Q12H [facility] Last Admin: 11/20/22 00:33 Dose: 300 mls/hr Meropenem (Merrem) 1 gm in 100 mls @ 33.333 mls/hr IV Q8H [facility] Last Admin: 11/20/22 03:00 Dose: 33.33 mls/hr Lidocaine HCl (Lidocaine 1% Pf 5 Ml Inj.Zara) 10 ml INFILTRATN ONCE PRN PRN Reason: Pain Melatonin (Melatonin 5 Mg Tablet) 5 mg PO QHS [facility] Stop: 11/19/23 21:59 Last Admin: 11/19/22 21:12 Dose: 5 mg Metoprolol Tartrate (Metoprolol Tartrate 12.5 Mg Tablet) 12.5 mg PO BID [facility] Stop: 11/18/23 20:59 Last Admin: 11/20/22 [...] % 10 Ml Syringe) 0 ml IV-PUSH QSNJFT [facility] Stop: 11/05/23 05:59 Last Admin: 11/20/22 [...] <Electronically signed by MD Sanjay Holt> 11/20/22904 [facility] Work Phone: 1(104) 329-579505-13-2023 Progress note Author Shant Villegas [facility] November 19, 2022 1:31pm Note Date/Time November 19, 2022 1:31p m [facility] [address] [place] [address] Hospitalist Progress Note Signed Patient: Lori Anton MR#: [id number] : 1965 Acct:[id number] Age/Sex: 57 / M Adm Date: 3 Loc: Room: [address] [place] [address] Type: ADM IN Attending Dr: Shant Villegas [...] cough, and right-sided chest pain to the [facility] ED and Transferred for the evaluation [...] 11/19/22 11:00 11/19/22 11:00 11/19/22 11:00 11/19/22 11:11/19/22 11:00 FiO2 40 11/18/22 09:00 Const Orientation: [...] . Documented By: Shant Villegas MD 11/19/22 3551 Signed By: <Electronically signed by Shant Villegas MD> 11/19/22 1331 [facility] Work Phone: 1([phone]) 413-756605-13-2023 Progress note Author Ismael Huitron [facility] November 19, 2022 12:32pm Note Date/Time November 19, 2022 12:32 pm [facility] [address] [place] [address] Pulmonology Progress Note Signed Patient: Lori Anton MR#: [id number] : 1965 Acct:[id number] Age/Sex: 57 / M Adm Date: 3 Loc: Room: [address] [place] [address] Type: ADM IN Attending Dr: Shant Villegas [...] 98 Nasal Cannula 3.5 11/19/22 08:00 11/19/22 11:11/19/22 11:11/19/22 11:00 11/19/22 11:00 11/19/22 11:11/19/22 11:00 FiO2 40 11/18/22 09:00 Narrative: General: [...] <Electronically signed by Ismael Huitron MD> 11/19/22 1222 [facility] Work Phone: 1(458) 151-562105-13-2023 Progress note Author Sanjay Holt [facility] November 19, 2022 9:45am Note Date/Time November 19, 2022 9:45a m [facility] [address] [place] [address] Infect. Disease Progress Note Signed Patient: Lori Anton MR#: [id number] : 1965 Acct:[id number] Age/Sex: 57 / M Adm Date: 3 Loc: Room: [address] [place] [address] Type: ADM IN Attending Dr: Shant Villegas [...] 3 Ml Ampul.Neb) 3 ml INHALATION QID.RESP [facility] Stop: 11/18/23 11:59 Last Admin: 11/19/22 08:21 Dose: 3 ml Alprazolam (Alprazolam 0.25 Mg Tablet) 0.25 mg PO Q6H PRN PRN Reason: Sleep Stop: 05/18/23 02:27 Last Admin: 11/19/22 09:07 Dose: 0.25 mg Buprenorphine HCl (Buprenorphine Hcl 2 Mg Tab.Subl) 2 mg SUBLINGUAL BID [facility] Stop: 05/18/23 09:26 Last Admin: 11/19/22 09:33 Dose: 2 mg Docusate Sodium (Docusate 100 Mg Capsule) 100 mg PO BID PRN PRN Reason: Constipation Stop: 11/18/23 10:23 Enoxaparin Sodium (Enoxaparin 40 Mg/0.4 Ml Syringe) 40 mg SUBCUT DAILY@1000 [facility] Stop: 11/06/23 09:59 Last Admin: 11/19/22 09:06 Dose: 40 mg Fluoxetine HCl (Fluoxetine Soln 20 Mg/5 Ml) 40 mg PO HS [facility] Stop: 11/07/23 21:59 Last Admin: 11/16/22 21:14 Dose: 40 mg Fluoxetine HCl (Fluoxetine Soln 20 Mg/5 Ml) 20 mg PO DAILY@0600 [facility] Stop: 11/08/23 05:59 Last Admin: 11/17/22 05:13 Dose: 20 mg Heparin Sodium (Porcine) (Heparin-Lock 500 Unit/5 Ml Syringe) 0 unit IV-PUSH QSHIFT [facility] Stop: 11/14/23 21:59 Last Admin: 11/19/22 06:42 Dose: 500 unit Hydromorphone HCl (Hydromorphone 1 Mg/Ml Syringe) 1 mg IV-PUSH Q4H PRN PRN Reason: Pain Linezolid (Zyvox) 600 mg in 300 mls @ 300 mls/hr IV Q12H [facility] Last Admin: 11/18/22 22:59 Dose: 300 mls/hr Meropenem (Merrem) 1 gm in 100 mls @ 33.333 mls/hr IV Q8H [facility] Last Admin: 11/19/22 09:07 Dose: 33.33 mls/hr Lidocaine HCl (Lidocaine 1% Pf 5 Ml Inj.Zara) 10 ml INFILTRATN ONCE PRN PRN Reason: Pain Magnesium Hydroxide (Magnesium Hydroxide Susp 30 Ml Udc) 30 ml PO DAILY PRN PRN Reason: Constipation Stop: 11/07/23 07:44 Last Admin: 11/16/22 08:46 Dose: 30 ml Metoprolol Tartrate (Metoprolol Tartrate 12.5 Mg Tablet) 12.5 mg PO BID [facility] Stop: 11/18/23 20:59 Last Admin: 11/19/22 09:07 [...] DAILY [facility] Stop: 11/08/23 08:59 Last Admin: 11/19/22 09:06 [...] 10 Ml Syringe) 0 ml IV-PUSH QSHIFT [facility] Stop: 11/05/23 05:59 Last Admin: 11/19/22 06:43 Dose: 10 ml Sodium Chloride (Sodium Chloride 0.9 % 10 Ml Syringe) 10 ml IV-PUSH PRN PRN PRN Reason: Flush Stop: 11/07/23 08:37 Last Admin: 11/15/22 08:11 Dose: 10 ml Sodium Chloride (Sodium Chloride 0.9 % 10 Ml Vial.Pf) 10 ml INJECTION DAILY [facility] Stop: 11/08/23 08:59 Last Admin: 11/19/22 [...] meropenem. Only new culture result from the [facility] positive was corynebacterium. Patient clinically is [...] <Electronically signed by MD Sanjay Holt> 11/19/2245 [facility] Work Phone: 1([phone]) 306-393605-12-2023 Progress note Author Shant Villegas [facility] November 18, 2022 12:45pm Note Date/Time November 18, 2022 12:44 pm [facility] [address] [place] [address] Hospitalist Progress Note Signed Patient: Lori Anton MR#: [id number] : 1965 Acct:[id number] Age/Sex: 57 / M Adm Date: 3 Loc: Room: 9B9315-5 Type: ADM IN Attending Dr: Shant Villegas [...] cough, and right-sided chest pain to the [facility] ED and Transferred for the evaluation [...] . Documented By: Shant Villegas MD 11/18/22 4267 Signed By: <Electronically signed by Shant Villegas MD> 11/18/22 1245 [facility] Work Phone: 1(960) 204-120605-12-2023 Progress note Author Ismael Huitron [facility] November 18, 2022 12:09pm Note Date/Time November 18, 2022 11:33 am [facility] [address] [place] [address] Pulmonology Progress Note Signed Patient: Lori Anton MR#: [id number] : 1965 Acct:[id number] Age/Sex: 57 / M Adm Date: 3 Loc: Room: [address] [place] [address] Type: ADM IN Attending Dr: Shant Villegas [...] <Electronically signed by Ismael Huitron MD> 11/18/22 120 [facility] Work Phone: 1(425) 496-255805-12-2023 Progress note Author Sanjay Holt [facility] November 18, 2022 10:49am Note Date/Time November 18, 2022 10:49 am [facility] [address] [place] [address] Infect. Disease Progress Note Signed Patient: Lori Anton MR#: [id number] : 1965 Acct:[id number] Age/Sex: 57 / M Adm Date: 3 Loc: Room: [address] [place] [address] Type: ADM IN Attending Dr: Shant Villegas [...] ml @ 33.333 mls/hr IV Q8H [facility] Rx#:[id number] fentaNYL 1,000 mcg-*D5W* 1,000 100 / 200 200 / 200 mcg In 100 ml @ 25 MCG/HR 2.5 mls/hr IV .Q24H [facility] Rx#: [id number] propofoL 1,000 mg In 100 ml @ 200 / 400 200 / 200 20 MCG/KG/MIN 12.6 mls/hr IV . Q7H57M [facility] Rx#:[id number] Tube Feeding 982 / 982 Output: Urine [...] 3 Ml Ampul.Neb) 3 ml INHALATION QID.RESP [facility] Stop: 11/18/23 11:59 Docusate Sodium (Docusate 100 Mg Capsule) 100 mg PO BID PRN PRN Reason: Constipation Stop: 11/18/23 10:23 Enoxaparin Sodium (Enoxaparin 40 Mg/0.4 Ml Syringe) 40 mg SUBCUT DAILY@1000 [facility] Stop: 11/06/23 09:59 Last Admin: 11/18/22 09:57 Dose: 40 mg Fluoxetine HCl (Fluoxetine Soln 20 Mg/5 Ml) 40 mg PO HS [facility] Stop: 11/07/23 21:59 Last Admin: 11/16/22 21:14 Dose: 40 mg Fluoxetine HCl (Fluoxetine Soln 20 Mg/5 Ml) 20 mg PO DAILY@0600 [facility] Stop: 11/08/23 05:59 Last Admin: 11/17/22 05:13 Dose: 20 mg Heparin Sodium (Porcine) (Heparin-Lock 500 Unit/5 Ml Syringe) 0 unit IV-PUSH QSHIFT [facility] Stop: 11/14/23 21:59 Last Admin: 11/18/22 06:37 Dose: 1,000 unit Linezolid (Zyvox) 600 mg in 300 mls @ 300 mls/hr IV Q12H [facility] Last Admin: 11/17/22 22:16 Dose: 300 mls/hr Meropenem (Merrem) 1 gm in 100 mls @ 33.333 mls/hr IV Q8H [facility] Last Admin: 11/18/22 01:54 Dose: 33.33 [...] 12.5 Mg Tablet) 12.5 mg OG-TUBE BID [facility] Stop: 11/17/23 11:29 Last Admin: 11/18/22 [...] 10 Ml Syringe) 0 ml IV-PUSH QSHIFT [facility] Stop: 11/05/23 05:59 Last Admin: 11/18/22 06:38 Dose: 30 ml Sodium Chloride (Sodium Chloride 0.9 % 10 Ml Syringe) 10 ml IV-PUSH PRN PRN PRN Reason: Flush Stop: 11/07/23 08:37 Last Admin: 11/15/22 08:11 Dose: 10 ml Sodium Chloride (Sodium Chloride 0.9 % 10 Ml Vial.Pf) 10 ml INJECTION DAILY [facility] Stop: 11/08/23 08:59 Last Admin: 11/18/22 09:57 [...] suggest otherwise Documented By: Sanjay Holt MD 11/18/22 104 Signed By: <Electronically signed by MD Sanjay Holt> 11/18/22 1049 [facility] Work Phone: [phone]) [phone] Progress note Author Sanjay Holt [facility] November 18, 2022 10:45am Note Date/Time November 17, 2022 9:25a m [facility] [address] [place] [address] Infect. Disease Progress Note Signed Patient: Lori Anton MR#: [id number] : 1965 Acct:[id number] Age/Sex: 57 / M Adm Date: 3 Loc: 4C Room: [address] [place] [address] Type: ADM IN Attending Dr: Shant Villegas [...] Ml Udc) 15 ml MUCOUS MEM BID [facility] Stop: 11/07/23 09:09 Last Admin: 11/17/22 08:39 Dose: 15 ml Docusate Sodium (Docusate Liquid 100 Mg/10 Ml Udc) 100 mg OG-TUBE BID [facility] Stop: 11/07/23 08:59 Last Admin: 11/17/22 08:39 Dose: 100 mg Enoxaparin Sodium (Enoxaparin 40 Mg/0.4 Ml Syringe) 40 mg SUBCUT DAILY@1000 [facility] Stop: 11/06/23 09:59 Last Admin: 11/16/22 09:26 Dose: 40 mg Fluoxetine HCl (Fluoxetine Soln 20 Mg/5 Ml) 40 mg PO HS [facility] Stop: 11/07/23 21:59 Last Admin: 11/16/22 21:14 Dose: 40 mg Fluoxetine HCl (Fluoxetine Soln 20 Mg/5 Ml) 20 mg PO DAILY@0600 [facility] Stop: 11/08/23 05:59 Last Admin: 11/17/22 05:13 Dose: 20 mg Heparin Sodium (Porcine) (Heparin-Lock 500 Unit/5 Ml Syringe) 0 unit IV-PUSH QSHIFT [facility] Stop: 11/14/23 21:59 Last Admin: 11/17/22 05:12 Dose: 1,500 unit Fentanyl (Fentanyl 1,000 Mcg/100 Ml D5w) 1,000 mcg in 100 mls @ 2.5 mls/hr IV .Q24H [facility]; Protocol Last Titration: 11/17/22 07:52 Dose: 125 mcg/hr, 12.5 mls/hr Propofol (Diprivan) 1,000 mg in 100 mls @ 12.6 mls/hr IV .Q7H57M [facility]; Protocol Stop: 11/07/23 07:59 Last Titration: 11/17/22 07:52 Dose: 30 mcg/kg/min, 18.9 mls/hr Midazolam HCl (Versed) 100 mg in 100 mls @ 1 mls/hr IV .Q24H [facility]; Protocol Stop: 05/08/23 10:59 Last Admin: [...] 40 Mg Vial) 40 mg IV-PUSH DAILY [facility] Stop: 11/08/23 08:59 Last Admin: 11/17/22 08:39 Dose: 40 mg Polyethylene Glycol (Polyethylene Glycol 3350 17 Gm Powd.Pack) 17 gm OG-TUBE DAILY PRN PRN Reason: Constipation Stop: 11/14/23 08:52 Last Admin: 11/16/22 21:13 Dose: 17 gm Sennosides (Sennosides Syrup 8.8 Mg/5 Ml Udc) 8.8 mg OG-TUBE BID [facility] Stop: 11/16/23 08:59 Last Admin: 11/17/22 08:39 Dose: 8.8 mg Sodium Chloride (Sodium Chloride 0.9 % 10 Ml Syringe) 0 ml IV-PUSH QSHIFT [facility] Stop: 11/05/23 05:59 Last Admin: 11/17/22 05:13 Dose: 10 ml Sodium Chloride (Sodium Chloride 0.9 % 10 Ml Syringe) 10 ml IV-PUSH PRN PRN PRN Reason: Flush Stop: 11/07/23 08:37 Last Admin: 11/15/22 08:11 Dose: 10 ml Sodium Chloride (Sodium Chloride 0.9 % 10 Ml Vial.Pf) 10 ml INJECTION DAILY [facility] Stop: 11/08/23 08:59 Last Admin: 11/17/22 08:40 [...] been off antibiotics now for 2 days. [facility] cultures only with corynebacterium. White count does [...] <Electronically signed by MD Sanjay Holt> 11/18/22 1040 [facility] Work Phone: [phone] Progress note Author Shant Villegas [facility] November 17, 2022 3:17pm Note Date/Time November 17, 2022 3:17p m [facility] [address] [place] [address] Hospitalist Progress Note Signed Patient: Lori Anton MR#: [id number] : 1965 Acct:[id number] Age/Sex: 57 / M Adm Date: 3 Loc: Room: [address] [place] [address] Type: ADM IN Attending Dr: Shant Villegas [...] cough, and right-sided chest pain to the [facility] ED and Transferred for the evaluation [...] PRN Administration Tachyarrhythmias Metoprolol Tartrate 12.5 mg 11/17/22 11:30 11/17/22 11:16 Metoprolol Tartrate 12.5 Mg [...] <Electronically signed by Shant Villegas MD> 11/17/22 1517 [facility] Work Phone: [phone] Progress note Author Reginald Arroyo [facility] November 17, 2022 10:25am Note Date/Time November 17, 2022 8:48a m [facility] [address] [place] [address] Pulmonology Progress Note Signed Patient: Lori Anton MR#: [id number] : 1965 Acct:[id number] Age/Sex: 57 / M Adm Date: 3 Loc: Room: [address] [place] [address] Type: ADM IN Attending Dr: Shant Villegas [...] colon. Documented By: Reginald Arroyo MD 3 [id number] Signed By: <Electronically signed by MD Reginald Arroyo> 11/17/[address] [place] [address] Ctr Work Phone: [phone]) [phone] Progress note Author Shant Villegas [facility] November 16, 2022 3:46pm Note Date/Time November 16, 2022 3:35p m [facility] [address] [place] [address] Hospitalist Progress Note Signed Patient: Lori Anton MR#: [id number] : 1965 Acct:[id number] Age/Sex: 57 / M Adm Date: 3 Loc: Room: 6W1989-1 Type: ADM IN Attending Dr: Shant Villegas [...] cough, and right-sided chest pain to the [facility] ED and Transferred for the evaluation and treatment of Bacterial pneumonia Bacterial pneumonia/Parainfluenza Infection Since patient remains intubated and had a spike of fever this morning. CTA chest obtained earlier today showed consolidative changes involving lower lobes and cavitary component in the right middle lobe. Patient being followed by pulmonary service and infectious disease and will defer further management to [facility] pulmonary service. Currently is off antibiotics. [...] <Electronically signed by Shant Villegas MD> 11/16/22 1542 [facility] Work Phone: [phone] Progress note Author Reginald Arroyo [facility] November 16, 2022 11:03am Note Date/Time November 16, 2022 8:20a m [facility] [address] [place] [address] Pulmonology Progress Note Signed Patient: Lori Anton MR#: [id number] : 1965 Acct:[id number] Age/Sex: 57 / M Adm Date: 3 Loc: Room: [address] [place] [address] Type: ADM IN Attending Dr: Shant Villegas [...] care. Documented By: Reginald Arroyo MD 3 [id number] Signed By: <Electronically signed by MD Reginald Arroyo> 11/16/22 1105 [facility] Work Phone: [phone] Progress note Author Sanjay Holt [facility] November 16, 2022 9:24am Note Date/Time November 16, 2022 9:05a m [facility] [address] [place] [address] Infect. Disease Progress Note Signed Patient: Lori Anton MR#: [id number] : 1965 Acct:[id number] Age/Sex: 57 / M Adm Date: 3 Loc: Room: 4E2851-6 Type: ADM IN Attending Dr: Shant Villegas [...] Puff/18 Gm Inhaler) 6 puff VENT Q6HR [facility] Stop: 11/07/23 11:59 Last Admin: 11/16/22 05:08 Dose: 6 puff Amlodipine Besylate (Amlodipine 10 Mg Tablet) 10 mg PO DAILY@0600 [facility] Stop: 11/05/23 08:59 Last Admin: 11/08/22 07:00 Dose: 10 mg Buprenorphine HCl (Buprenorphine Hcl 2 Mg Tab.Subl) 2 mg SUBLINGUAL BID@0600,1800 [facility] Stop: 05/06/23 05:59 Last Admin: 11/07/22 06:38 Dose: 2 mg Carvedilol (Carvedilol 12.5 Mg Tablet) 12.5 mg PO BID@0600,1800 [facility] Stop: 11/06/23 20:59 Last Admin: 11/08/22 07:00 Dose: 12.5 mg Chlorhexidine Gluconate (Chlorhexidine Gluconate 0.12% 15 Ml Udc) 15 ml MUCOUS MEM BID [facility] Stop: 11/07/23 09:09 Last Admin: 11/16/22 08:46 Dose: 15 ml Docusate Sodium (Docusate Liquid 100 Mg/10 Ml Udc) 100 mg OG-TUBE BID [facility] Stop: 11/07/23 08:59 Last Admin: 11/16/22 08:46 Dose: 100 mg Enoxaparin Sodium (Enoxaparin 40 Mg/0.4 Ml Syringe) 40 mg SUBCUT DAILY@1000 [facility] Stop: 11/06/23 09:59 Last Admin: 11/15/22 10:16 Dose: 40 mg Fluoxetine HCl (Fluoxetine Soln 20 Mg/5 Ml) 40 mg PO HS [facility] Stop: 11/07/23 21:59 Last Admin: 11/15/22 22:31 Dose: 40 mg Fluoxetine HCl (Fluoxetine Soln 20 Mg/5 Ml) 20 mg PO DAILY@0600 [facility] Stop: 11/08/23 05:59 Last Admin: 11/16/22 05:39 Dose: 20 mg Heparin Sodium (Porcine) (Heparin-Lock 500 Unit/5 Ml Syringe) 0 unit IV-PUSH QSHIFT [facility] Stop: 11/14/23 21:59 Last Admin: 11/16/22 05:47 Dose: 1,000 unit Fentanyl (Fentanyl 1,000 Mcg/100 Ml D5w) 1,000 mcg in 100 mls @ 2.5 mls/hr IV .Q24H [facility]; Protocol Last Admin: 11/15/22 19:06 Dose: 200 mcg/hr, 20 mls/hr Propofol (Diprivan) 1,000 mg in 100 mls @ 12.6 mls/hr IV .Q7H57M [facility]; Protocol Stop: 11/07/23 07:59 Last Admin: 11/16/22 08:47 Dose: 20 mcg/kg/min, 12.6 mls/hr Midazolam HCl (Versed) 100 mg in 100 mls @ 1 mls/hr IV .Q24H [facility]; Protocol Stop: 05/08/23 10:59 Last Titration: 11/16/22 08:48 Dose: 5 mg/hr, 5 mls/hr Sodium Chloride (0.45% Sodium Chloride 1,000 Ml) 1,000 mls @ 150 mls/hr IV .Q6H40M [facility] Stop: 11/16/22 15:39 Lidocaine HCl (Lidocaine 1% Pf 5 Ml Inj.Zara) 10 ml INFILTRATN ONCE PRN PRN Reason: Pain Lisinopril (Lisinopril 20 Mg Tablet) 20 mg PO DAILY@0600 [facility] Stop: 11/06/23 08:59 Last Admin: 11/08/22 07:00 [...] DAILY [facility] Stop: 11/08/23 08:59 Last Admin: 11/16/22 08:46 Dose: 40 mg Polyethylene Glycol (Polyethylene Glycol 3350 17 Gm Powd.Pack) 17 gm OG-TUBE DAILY PRN PRN Reason: Constipation Stop: 11/14/23 08:52 Last Admin: 11/15/22 18:26 Dose: 17 gm Sennosides (Sennosides Syrup 8.8 Mg/5 Ml Udc) 8.8 mg OG-TUBE BID [facility] Stop: 11/16/23 08:59 Sodium Chloride (Sodium Chloride 0.9 % 10 Ml Syringe) 0 ml IV-PUSH QSHIFT [facility] Stop: 11/05/23 05:59 Last Admin: 11/16/22 05:47 Dose: 20 ml Sodium Chloride (Sodium Chloride 0.9 % 10 Ml Syringe) 10 ml IV-PUSH PRN PRN PRN Reason: Flush Stop: 11/07/23 08:37 Last Admin: 11/15/22 08:11 Dose: 10 ml Sodium Chloride (Sodium Chloride 0.9 % 10 Ml Vial.Pf) 10 ml INJECTION DAILY [facility] Stop: 11/08/23 08:59 Last Admin: 11/16/22 08:46 [...] elevated. On admission respiratory PCR panel at [facility] without targeted pathogen but parainfluenza 3 virus targeted here. Legionella urine antigen negative, Legionella antibodies negative. Urine strep antigen negative. HIV negative. At this time he is off antibiotics and has been for only a day. Documented By: Sanjay Holt MD 11/16/22 0858 Signed By: <Electronically signed by MD Sanjay Holt> 11/16/2224 [facility] Work Phone: [phone]) 249-465605-09-2023 Progress note Author Shant Villegas [facility] November 15, 2022 2:30pm Note Date/Time November 15, 2022 2:30pm [facility] [address] [place] [address] Hospitalist Progress Note Signed Patient: Lori Anton MR#: [id number] : 1965 Acct:[id number] Age/Sex: 57 / M Adm Date: 3 Loc: Room: [address] [place] [address] Type: ADM IN Attending Dr: Shant Villegas [...] cough, and right-sided chest pain to the [facility] ED and Transferred for the evaluation and treatment of Bacterial pneumonia Bacterial pneumonia/Parainfluenza Infection Per chest CTA report done at [facility], there is evidence of 2.6 cm [...] Ventilation 65 11/15/22 13:00 11/15/22 13:00 11/15/22 13:11/15/22 13:11/15/22 13:11/15/22 13:11/07/22 00:00 FiO2 65 11/15/22 13:00 Const Other: [...] [facility] Administration Guaifenesin 1,200 mg 11/06/22 12:55 04/30/23 20:51 Guaifenesin 600 Mg Tab.Er.12h PO 11/06/23 [...] Vial IV-PUSH 11/08/23 08:59 40 mg DAILY [facility] Administration Polyethylene Glycol 17 gm 11/14/22 08:53 [...] . Documented By: Shant Villegas MD 11/15/22 1425 Signed By: <Electronically signed by Shant Villegas MD> 11/15/22 1430 [facility] Work Phone: [phone]) [phone] Progress note Author Reginald Arroyo [facility] November 15, 2022 12:14pm Note Date/Time November 15, 2022 8:22am [facility] [address] [place] [address] Pulmonology Progress Note Signed Patient: Lori Anton MR#: [id number] : 1965 Acct:[id number] Age/Sex: 57 / M Adm Date: 3 Loc: Room: [address] [place] [address] Type: ADM IN Attending Dr: Shant Villegas [...] Content 7.0 ABG Base Excess 9.5 H 20/500/80/10 Assessment/Plan Assessment/Plan (1) Acute hypoxemic respiratory failure: [...] care. Documented By: Reginald Arroyo MD 3 [id number] Signed By: <Electronically signed by MD Reginald Arroyo> 11/15/22 [facility] Work Phone: [phone]) 362-526205-09-2023 Progress note Author Sanjay Holt [facility] November 15, 2022 9:37am Note Date/Time November 15, 2022 9:37am [facility] [address] [place] [address] Infect. Disease Progress Note Signed Patient: Lori Anton MR#: [id number] : 1965 Acct:[id number] Age/Sex: 57 / M Adm Date: 3 Loc: Room: [address] [place] [address] Type: ADM IN Attending Dr: Shant Villegas [...] Puff/18 Gm Inhaler) 6 puff VENT Q6HR [facility] Stop: 11/07/23 11:59 Last Admin: 11/15/22 05:24 Dose: 6 puff Albuterol/Ipratropium (Ipratropium/Albuterol 0.5-3 Mg 3 Ml Ampul.Neb) 3 ml INHALATION QID.RESP [facility] Stop: 11/05/23 07:59 Last Admin: 11/07/22 09:05 Dose: Not Given Amlodipine Besylate (Amlodipine 10 Mg Tablet) 10 mg PO DAILY@0600 [facility] Stop: 11/05/23 08:59 Last Admin: 11/08/22 07:00 Dose: 10 mg Budesonide (Budesonide 0.5 Mg/2 Ml Ampul.Neb) 0.5 mg INHALATION BID [facility] Stop: 11/05/23 11:39 Last Admin: 11/06/22 20:43 Dose: 0.5 mg Buprenorphine HCl (Buprenorphine Hcl 2 Mg Tab.Subl) 2 mg SUBLINGUAL BID@0600,1800 [facility] Stop: 05/06/23 05:59 Last Admin: 11/07/22 06:38 Dose: 2 mg Carvedilol (Carvedilol 12.5 Mg Tablet) 12.5 mg PO BID@0600,1800 [facility] Stop: 11/06/23 20:59 Last Admin: 11/08/22 07:00 Dose: 12.5 mg Chlorhexidine Gluconate (Chlorhexidine Gluconate 0.12% 15 Ml Udc) 15 ml MUCOUS MEM BID [facility] Stop: 11/07/23 09:09 Last Admin: 11/15/22 08:10 Dose: 15 ml Docusate Sodium (Docusate Liquid 100 Mg/10 Ml Udc) 100 mg OG-TUBE BID [facility] Stop: 11/07/23 08:59 Last Admin: 11/15/22 08:10 Dose: 100 mg Enoxaparin Sodium (Enoxaparin 40 Mg/0.4 Ml Syringe) 40 mg SUBCUT DAILY@1000 [facility] Stop: 11/06/23 09:59 Last Admin: 11/14/22 15:06 Dose: 40 mg Fluoxetine HCl (Fluoxetine Soln 20 Mg/5 Ml) 40 mg PO HS [facility] Stop: 11/07/23 21:59 Last Admin: 11/14/22 21:47 Dose: 40 mg Fluoxetine HCl (Fluoxetine Soln 20 Mg/5 Ml) 20 mg PO DAILY@0600 [facility] Stop: 11/08/23 05:59 Last Admin: 11/15/22 05:47 Dose: 20 mg Guaifenesin (Guaifenesin 600 Mg Tab.Er.12h) 1,200 mg PO BID [facility] Stop: 11/06/23 12:54 Last Admin: 11/06/22 20:51 Dose: 1,200 mg Heparin Sodium (Porcine) (Heparin-Lock 500 Unit/5 Ml Syringe) 0 unit IV-PUSH QSHIFT [facility] Stop: 11/14/23 21:59 Last Admin: 11/15/22 05:46 Dose: 1,000 unit Levofloxacin (Levaquin) 750 mg in 150 mls @ 100 mls/hr IV Q24H [facility] Last Admin: 11/14/22 21:45 Dose: 100 mls/hr Clindamycin Phosphate (Cleocin) 600 mg in 50 mls @ 100 mls/hr IV Q8H [facility] Last Admin: 11/15/22 02:46 Dose: 100 mls/hr Fentanyl (Fentanyl 1,000 Mcg/100 Ml D5w) 1,000 mcg in 100 mls @ 2.5 mls/hr IV .Q24H [facility]; Protocol Last Admin: 11/15/22 07:59 Dose: 200 mcg/hr, 20 mls/hr Propofol (Diprivan) 1,000 mg in 100 mls @ 12.6 mls/hr IV .Q7H57M [facility]; Protocol Stop: 11/07/23 07:59 Last Admin: 11/15/22 06:38 Dose: 35 mcg/kg/min, 22.05 mls/hr Midazolam HCl (Versed) 100 mg in 100 mls @ 1 mls/hr IV .Q24H [facility]; Protocol Stop: 05/08/23 10:59 Last Admin: 11/14/22 21:46 Dose: Not Given Lidocaine HCl (Lidocaine 1% Pf 5 Ml Inj.Zara) 10 ml INFILTRATN ONCE PRN PRN Reason: Pain Lisinopril (Lisinopril 20 Mg Tablet) 20 mg PO DAILY@0600 [facility] Stop: 11/06/23 08:59 Last Admin: 11/08/22 [...] 40 Mg Vial) 40 mg IV-PUSH DAILY [facility] Stop: 11/08/23 08:59 Last Admin: 11/15/22 08:10 [...] BID [facility] Stop: 11/07/23 08:59 Last Admin: 11/15/22 08:10 [...] days. On admission respiratory PCR panel at [facility] without targeted pathogen but parainfluenza 3 virus [...] pathogenic grows. Documented By: Sanjay Holt MD 11/15/2234 Signed By: <Electronically signed by MD Sanjay Holt> 11/15/2237 [facility] Work Phone: 1(293) 406-586005-08-2023 Procedure [facility]05-08-2023 Procedure [facility]05-08-2023 Progress note Author Shant Villegas [facility] November 14, 2022 12:52pm Note Date/Time November 14, 2022 12:52p m [facility] [address] [place] [address] Hospitalist Progress Note Signed Patient: Lori Anton MR#: [id number] : 1965 Acct:[id number] Age/Sex: 57 / M Adm Date: 3 Loc: Room: [address] [place] [address] Type: ADM IN Attending Dr: Shant Villegas MD Copies to: ~ Date of Service: 11/14/2022 Subjective Subjective Narrative: On examination patient remains intubated and sedated. Currently PEEP of 10 [id number]% FiO2. Plan for bronchoscopy later today by pulmonary service. He is also being followed by ID. Currently on Versed, fentanyl and propofol for sedation. No growth on blood cultures so far. With initial sputum culture growing Candidaonly. Assessment And Plan 57M with PMH of HTN, DJD, Tobacco abuse, Depression who p/w ever, cough, and right-sided chest pain to the [facility] ED and Transferred for the evaluation and treatment of Bacterial pneumonia Bacterial pneumonia/Parainfluenza Infection Per chest CTA report done at [facility], there is evidence of 2.6 cm [...] Insuln.Pen SUBCUT 11/08/23 11:59 Not Given Q6HR [facility] Protocol Lidocaine HCl 10 ml 11/09/22 [...] <Electronically signed by Shant Villegas MD> 11/14/22 1252 [facility] Work Phone: [phone]) 344-696305-08-2023 Progress note Author Reginald Arroyo [facility] November 14, 2022 12:46pm Note Date/Time November 14, 2022 8:51am [facility] [address] [place] [address] Pulmonology Progress Note Signed Patient: Lori Anton MR#: [id number] : 1965 Acct:[id number] Age/Sex: 57 / M Adm Date: 3 Loc: Room: [address] [place] [address] Type: ADM IN Attending Dr: Shant Villegas [...] cultures. Documented By: Reginald Arroyo MD 3 [id number] Signed By: <Electronically signed by MD Reginald Arroyo> 11/14/22 1246 [facility] Work Phone: 1([phone]) [phone] Progress note Author Sanjay Holt [facility] November 14, 2022 8:59am Note Date/Time November 14, 2022 8:59am [facility] [address] [place] [address] Infect. Disease Progress Note Signed Patient: Lori Anton MR#: [id number] : 1965 Acct:[id number] Age/Sex: 57 / M Adm Date: 3 Loc: Room: [address] [place] [address] Type: ADM IN Attending Dr: Rubi Ramos [...] Q6HR [facility] Stop: 11/07/23 11:59 Last Admin: 11/14/22 05:19 Dose: 6 puff Albuterol/Ipratropium (Ipratropium/Albuterol 0.5-3 Mg 3 Ml Ampul.Neb) 3 ml INHALATION QID.RESP [facility] Stop: 11/05/23 07:59 Last Admin: 11/07/22 09:05 Dose: Not Given Amlodipine Besylate (Amlodipine 10 Mg Tablet) 10 mg PO DAILY@0600 [facility] Stop: 11/05/23 08:59 Last Admin: 11/08/22 07:00 Dose: 10 mg Budesonide (Budesonide 0.5 Mg/2 Ml Ampul.Neb) 0.5 mg INHALATION BID [facility] Stop: 11/05/23 11:39 Last Admin: 11/06/22 20:43 Dose: 0.5 mg Bumetanide (Bumetanide 1 Mg/4 Ml Vial) 1 mg IV-PUSH BID@0800,1600 [facility] Stop: 11/14/22 16:01 Last Admin: 11/13/22 16:15 Dose: 1 mg Buprenorphine HCl (Buprenorphine Hcl 2 Mg Tab.Subl) 2 mg SUBLINGUAL BID@0600,1800 [facility] Stop: 05/06/23 05:59 Last Admin: 11/07/22 06:38 Dose: 2 mg Carvedilol (Carvedilol 12.5 Mg Tablet) 12.5 mg PO BID@0600,1800 [facility] Stop: 11/06/23 20:59 Last Admin: 11/08/22 07:00 Dose: 12.5 mg Chlorhexidine Gluconate (Chlorhexidine Gluconate 0.12% 15 Ml Udc) 15 ml MUCOUS MEM BID [facility] Stop: 11/07/23 09:09 Last Admin: 11/13/22 22:31 Dose: 15 ml Docusate Sodium (Docusate Liquid 100 Mg/10 Ml Udc) 100 mg OG-TUBE BID [facility] Stop: 11/07/23 08:59 Last Admin: 11/13/22 22:31 Dose: 100 mg Enoxaparin Sodium (Enoxaparin 40 Mg/0.4 Ml Syringe) 40 mg SUBCUT DAILY@1000 [facility] Stop: 11/06/23 09:59 Last Admin: 11/13/22 09:16 Dose: 40 mg Fluoxetine HCl (Fluoxetine Soln 20 Mg/5 Ml) 40 mg PO HS [facility] Stop: 11/07/23 21:59 Last Admin: 11/13/22 22:32 Dose: 40 mg Fluoxetine HCl (Fluoxetine Soln 20 Mg/5 Ml) 20 mg PO DAILY@0600 [facility] Stop: 11/08/23 05:59 Last Admin: 11/14/22 06:31 Dose: 20 mg Guaifenesin (Guaifenesin 600 Mg Tab.Er.12h) 1,200 mg PO BID [facility] Stop: 11/06/23 12:54 Last Admin: 11/06/22 20:51 Dose: 1,200 mg Levofloxacin (Levaquin) 750 mg in 150 mls @ 100 mls/hr IV Q24H [facility] Last Admin: 11/13/22 22:31 Dose: 100 mls/hr Clindamycin Phosphate (Cleocin) 600 mg in 50 mls @ 100 mls/hr IV Q8H [facility] Last Admin: 11/14/22 01:20 Dose: 100 mls/hr Fentanyl (Fentanyl 1,000 Mcg/100 Ml D5w) 1,000 mcg in 100 mls @ 2.5 mls/hr IV .Q24H [facility]; Protocol Last Admin: 11/14/22 04:30 Dose: 200 mcg/hr, 20 mls/hr Propofol (Diprivan) 1,000 mg in 100 mls @ 12.6 mls/hr IV .Q7H57M [facility]; Protocol Stop: 11/07/23 07:59 Last Admin: 11/14/22 06:30 Dose: 50 mcg/kg/min, 31.5 mls/hr Midazolam HCl (Versed) 100 mg in 100 mls @ 1 mls/hr IV .Q24H [facility]; Protocol Stop: 05/08/23 10:59 Last Admin: 11/13/22 22:31 Dose: Not Given Insulin Aspart (Insulin Aspart 300 Units/3 Ml Insuln.Pen) 0 units SUBCUT Q6HR [facility]; Protocol Stop: 11/08/23 11:59 Last Admin: 11/14/22 06:31 Dose: Not Given Lidocaine HCl (Lidocaine 1% Pf 5 Ml Inj.Zara) 10 ml INFILTRATN ONCE PRN PRN Reason: Pain Lisinopril (Lisinopril 20 Mg Tablet) 20 mg PO DAILY@0600 [facility] Stop: 11/06/23 08:59 Last Admin: 11/08/22 [...] 40 Mg Vial) 40 mg IV-PUSH DAILY [facility] Stop: 11/08/23 08:59 Last Admin: 11/13/22 09:16 Dose: 40 mg Potassium Chloride (Potassium Chloride Er 20 Meq Tab.Er.Prt) 40 meq PO DAILY PRN PRN Reason: Hypokalemia Stop: 11/05/23 06:40 Last Admin: 11/05/22 08:43 Dose: 40 meq Sennosides (Sennosides Syrup 8.8 Mg/5 Ml Udc) 8.8 mg PO BID [facility] Stop: 11/07/23 08:59 Last Admin: 11/13/22 22:31 Dose: 8.8 mg Sodium Chloride (Sodium Chloride 0.9 % 10 Ml Syringe) 0 ml IV-PUSH QSHIFT [facility] Stop: 11/05/23 05:59 Last Admin: 11/14/22 06:31 Dose: 10 ml Sodium Chloride (Sodium Chloride 0.9 % 10 Ml Syringe) 10 ml IV-PUSH PRN PRN PRN Reason: Flush Stop: 11/07/23 08:37 Sodium Chloride (Sodium Chloride 0.9 % 10 Ml Vial.Pf) 10 ml INJECTION DAILY [facility] Stop: 11/08/23 08:59 Last Admin: 11/13/22 [...] 3days. On admission respiratory PCR panel at [place] without targeted pathogen but parainfluenza 3 virus [...] signed by MD Sanjay Holt> 11/14/22 0859 [facility] Work Phone: [phone]) 735-784805-07-2023 Progress note Author Rubi Ramos [facility] November 13, 2022 5:32pm Note Date/Time November 13, 2022 2:04pm [facility] [address] [place] [address] Hospitalist Progress Note Signed Patient: Lori Anton MR#: [id number] : 1965 Acct:[id number] Age/Sex: 57 / M Adm Date: 3 Loc: Room: [address] [place] [address] Type: ADM IN Attending Dr: Rubi Ramos MD Copies to: ~ Date of Service: 11/13/2022 Subjective Subjective Narrative: Assessment And Plan 57M with PMH of HTN, DJD, Tobacco abuse, Depression who p/w ever, cough, and right-sided chest pain to the [facility] ED and Transferred for the evaluation and treatment of Bacterial pneumonia Bacterial pneumonia/Parainfluenza Infection leukocytosis is better , no fever today Per chest CTA report done at [facility], there is evidence of 2.6 cm [...] degree Pulmonary consulted recommendation appreciated Agree with Roberto Tx right pneumothorax s/p chest tube placement [...] Mg/4 Ml Vial IV-PUSH 11/14/22 16:01 BID@0800,1600 [facility] Buprenorphine HCl 2 mg 11/07/22 06:00 [...] Insuln.Pen SUBCUT 11/08/23 11:59 Not Given Q6HR [facility] Protocol Lidocaine HCl 10 ml 11/09/22 [...] <Electronically signed by Rubi Ramos MD> 11/13/22 1702 [facility] Work Phone: [phone] Progress note Author Reginald Arroyo [facility] November 13, 2022 10:56am Note Date/Time November 13, 2022 9:03am [facility] [address] [place] [address] Pulmonology Progress Note Signed Patient: Lori Anton MR#: [id number] : 1965 Acct:[id number] Age/Sex: 57 / M Adm Date: 3 Loc: Room: [address] [place] [address] Type: ADM IN Attending Dr: Rubi Ramos [...] care. Documented By: Reginald Arroyo MD 3 0902 Signed By: <Electronically signed by MD Reginald Arroyo> 11/13/22 [facility]8 [facility] Work Phone: [phone] Progress note Author Rubi Ramos [facility] November 12, 2022 6:19pm Note Date/Time November 12, 2022 4:48pm [facility] [address] [place] [address] Hospitalist Progress Note Signed Patient: Lori Anton MR#: [id number] : 1965 Acct:[id number] Age/Sex: 57 / M Adm Date: 3 Loc: Room: [address] [place] [address] Type: ADM IN Attending Dr: Rubi Ramos MD Copies to: ~ Date of Service: 11/12/2022 Subjective Subjective Narrative: Assessment And Plan 57M with PMH of HTN, DJD, Tobacco abuse, Depression who p/w ever, cough, and right-sided chest pain to the [facility] ED and Transferred for the evaluation and treatment of Bacterial pneumonia Bacterial pneumonia/Parainfluenza Infection still have leukocytosis (he is on steroids) , no fever today Per chest CTA report done at [facility], there is evidence of 2.6 cm [...] 65 11/12/22 12:00 11/12/22 15:11/12/22 15:11/12/22 15:11/12/22 15:11/12/22 15:11/07/22 00:00 FiO2 90 11/12/22 15:00 Narrative: [...] PSYCH: Sedated and intubated Objective Lab Results 11/12/22 05:10 11/12/22 05:10 Microbiology Results Microbiology 11/10/22 11:00 [...] Insuln.Pen SUBCUT 11/08/23 11:59 Not Given Q6HR [facility] Protocol Lidocaine HCl 10 ml 11/09/22 13:55 Lidocaine 1% Pf 5 Ml Inj.Zara INFILTRATN ONCE PRN Pain Lisinopril 20 mg 11/07/22 06:00 11/08/22 07:00 Lisinopril 20 Mg Tablet PO 11/06/23 08:59 20 mg DAILY@0600 [facility] Administration Magnesium Hydroxide 30 ml 11/07/22 [...] . Documented By: Rubi Ramos MD 11/12/22 1242 Signed By: <Electronically signed by Rubi Rmaos MD> 11/12/22 9268 [facility] Work Phone: 1([phone]) 850-475805-06-2023 Progress note Author Reginald Arroyo [facility] November 12, 2022 2:57pm Note Date/Time November 12, 2022 8:07am [facility] [address] [place] [address] Pulmonology Progress Note Signed Patient: Lori Anton MR#: [id number] : 1965 Acct:[id number] Age/Sex: 57 / M Adm Date: 3 Loc: Room: [address] [place] [address] Type: ADM IN Attending Dr: Rubi Ramos [...] <Electronically signed by MD Reginald Arroyo> 11/12/22 1456 [facility] Work Phone: [phone] Progress note Author Rubi Ramos [facility] November 12, 2022 1:03am Note Date/Time November 11, 2022 5:50pm [facility] [address] [place] [address] Hospitalist Progress Note Signed Patient: Lori Anton MR#: [id number] : 1965 Acct:[id number] Age/Sex: 57 / M Adm Date: 3 Loc: Room: [address] [place] [address] Type: ADM IN Attending Dr: Rubi Ramos MD Copies to: ~ Date of Service: 11/11/2022 Subjective Subjective Narrative: Assessment And Plan 57M with PMH of HTN, DJD, Tobacco abuse, Depression who p/w ever, cough, and right-sided chest pain to the [facility] ED and Transferred for the evaluation and treatment of Bacterial pneumonia Bacterial pneumonia/Parainfluenza Infection still have leukocytosis (he is on steroids) , borderline fever at night Per chest CTA report done at [facility], there is evidence of 2.6 cm [...] mls/hr 11/07/22 08:00 11/11/22 15:41 Diprivan IV 04/30/24 07:59 50 mcg/kg/min .Q7H57M [facility] 31.5 mls/hr [...] . Documented By: Rubi Ramos MD 11/11/22 1223 Signed By: <Electronically signed by Rubi Ramos MD> 11/12/22 010 [facility] Work Phone: 1([phone]) 300-517105-05-2023 Progress note Author Reginald Arroyo [facility] November 11, 2022 2:52pm Note Date/Time November 11, 2022 2:42pm [facility] [address] [place] [address] Pulmonology Progress Note Signed Patient: Lori Anton MR#: [id number] : 1965 Acct:[id number] Age/Sex: 57 / M Adm Date: 3 Loc: Room: [address] [place] [address] Type: ADM IN Attending Dr: Rubi Ramos [...] 1440 Signed By: <Electronically signed by MD Rgeinald Arroyo> 11/11/22 3973 [facility] Work Phone: [phone]) 707-195205-05-2023 Progress note Author Sanjay Holt [facility] November 11, 2022 11:18am Note Date/Time November 11, 2022 11:18a m [facility] [address] [place] [address] Infect. Disease Progress Note Signed Patient: Lori Anton MR#: [id number] : 1965 Acct:[id number] Age/Sex: 57 / M Adm Date: 3 Loc: Room: [address] [place] [address] Type: ADM IN Attending Dr: Rubi Ramos [...] ml @ 100 mls/hr IV Q8H [facility] Rx#:[id number] fentaNYL 1,000 mcg-*D5W* 1,000 100 / 400 200 / 200 mcg In 100 ml @ 25 MCG/HR 2.5 mls/hr IV .Q24H [facility] Rx#: [id number] propofoL 1,000 mg In 100 ml @ 200 / 600 200 / 300 100 / 300 20 MCG/KG/MIN 12.6 mls/hr IV . Q7H57M [facility] Rx#:[id number] Tube Feeding 480 / 1440 480 / [...] Appearance Clear Urine pH 7.5 Ur Specific [place] 1.016 Urine Protein Negative Urine Glucose (UA) [...] Puff/18 Gm Inhaler) 6 puff VENT Q6HR [facility] Stop: 11/07/23 11:59 Last Admin: 11/11/22 05:23 Dose: 6 puff Albuterol/Ipratropium (Ipratropium/Albuterol 0.5-3 Mg 3 Ml Ampul.Neb) 3 ml INHALATION QID.RESP [facility] Stop: 11/05/23 07:59 Last Admin: 11/07/22 09:05 Dose: Not Given Amlodipine Besylate (Amlodipine 10 Mg Tablet) 10 mg PO DAILY@0600 [facility] Stop: 11/05/23 08:59 Last Admin: 11/08/22 07:00 Dose: 10 mg Budesonide (Budesonide 0.5 Mg/2 Ml Ampul.Neb) 0.5 mg INHALATION BID [facility] Stop: 11/05/23 11:39 Last Admin: 11/06/22 20:43 Dose: 0.5 mg Buprenorphine HCl (Buprenorphine Hcl 2 Mg Tab.Subl) 2 mg SUBLINGUAL BID@0600,1800 [facility] Stop: 05/06/23 05:59 Last Admin: 11/07/22 06:38 Dose: 2 mg Carvedilol (Carvedilol 12.5 Mg Tablet) 12.5 mg PO BID@0600,1800 [facility] Stop: 11/06/23 20:59 Last Admin: 11/08/22 07:00 Dose: 12.5 mg Chlorhexidine Gluconate (Chlorhexidine Gluconate 0.12% 15 Ml Udc) 15 ml MUCOUS MEM BID [facility] Stop: 11/07/23 09:09 Last Admin: 11/11/22 08:53 Dose: 15 ml Docusate Sodium (Docusate Liquid 100 Mg/10 Ml Udc) 100 mg OG-TUBE BID [facility] Stop: 11/07/23 08:59 Last Admin: 11/11/22 08:53 Dose: 100 mg Enoxaparin Sodium (Enoxaparin 40 Mg/0.4 Ml Syringe) 40 mg SUBCUT DAILY@1000 [facility] Stop: 11/06/23 09:59 Last Admin: 11/11/22 11:08 Dose: 40 mg Fluoxetine HCl (Fluoxetine Soln 20 Mg/5 Ml) 40 mg PO HS [facility] Stop: 11/07/23 21:59 Last Admin: 11/10/22 21:53 Dose: 40 mg Fluoxetine HCl (Fluoxetine Soln 20 Mg/5 Ml) 20 mg PO DAILY@0600 [facility] Stop: 11/08/23 05:59 Last Admin: 11/11/22 06:16 Dose: 20 mg Guaifenesin (Guaifenesin 600 Mg Tab.Er.12h) 1,200 mg PO BID [facility] Stop: 11/06/23 12:54 Last Admin: 11/06/22 20:51 Dose: 1,200 mg Levofloxacin (Levaquin) 750 mg in 150 mls @ 100 mls/hr IV Q24H [facility] Last Admin: 11/10/22 21:53 Dose: 100 mls/hr Clindamycin Phosphate (Cleocin) 600 mg in 50 mls @ 100 mls/hr IV Q8H [facility] Last Admin: 11/11/22 11:08 Dose: 100 mls/hr Fentanyl (Fentanyl 1,000 Mcg/100 Ml D5w) 1,000 mcg in 100 mls @ 2.5 mls/hr IV .Q24H [facility]; Protocol Last Admin: 11/11/22 07:45 Dose: 200 mcg/hr, 20 mls/hr Propofol (Diprivan) 1,000 mg in 100 mls @ 12.6 mls/hr IV .Q7H57M [facility]; Protocol Stop: 11/07/23 07:59 Last Admin: 11/11/22 08:52 Dose: 50 mcg/kg/min, 31.5 mls/hr Sodium Chloride (0.9% Sodium Chloride 1,000 Ml) 1,000 mls @ 75 mls/hr IV .[id number] [facility] Stop: 11/07/23 09:59 Last Admin: 11/10/22 23:51 Dose: Not Given Midazolam HCl (Versed) 100 mg in 100 mls @ 1 mls/hr IV .Q24H [facility]; Protocol Stop: 05/08/23 10:59 Last Admin: 11/11/22 11:08 Dose: 6 mg/hr, 6 mls/hr Insulin Aspart (Insulin Aspart 300 Units/3 Ml Insuln.Pen) 0 units SUBCUT Q6HR [facility]; Protocol Stop: 11/08/23 11:59 Last Admin: [...] 20 Mg Tablet) 20 mg PO DAILY@0600 [facility] Stop: 11/06/23 08:59 Last Admin: 11/08/22 07:00 Dose: 20 mg Magnesium Hydroxide (Magnesium Hydroxide Susp 30 Ml Udc) 30 ml PO DAILY PRN PRN Reason: Constipation Stop: 11/07/23 07:44 Methylprednisolone Sodium Succinate (Methylprednisolone Sod Succ/Pf 40 Mg/Ml (1ml) Vial) 40 mg IV-PUSH DAILY [facility] Stop: 11/10/23 08:59 Last Admin: 11/11/22 [...] 40 Mg Vial) 40 mg IV-PUSH DAILY [facility] Stop: 11/08/23 08:59 Last Admin: 11/11/22 08:53 Dose: 40 mg Potassium Chloride (Potassium Chloride Er 20 Meq Tab.Er.Prt) 40 meq PO DAILY PRN PRN Reason: Hypokalemia Stop: 11/05/23 06:40 Last Admin: 11/05/22 08:43 Dose: 40 meq Sennosides (Sennosides Syrup 8.8 Mg/5 Ml Udc) 8.8 mg PO BID [facility] Stop: 11/07/23 08:59 Last Admin: 11/11/22 08:53 Dose: 8.8 mg Sodium Chloride (Sodium Chloride 0.9 % 10 Ml Syringe) 0 ml IV-PUSH QSHIFT [facility] Stop: 11/05/23 05:59 Last Admin: 11/11/22 06:17 Dose: 30 ml Sodium Chloride (Sodium Chloride 0.9 % 10 Ml Syringe) 10 ml IV-PUSH PRN PRN PRN Reason: Flush Stop: 11/07/23 08:37 Sodium Chloride (Sodium Chloride 0.9 % 10 Ml Vial.Pf) 10 ml INJECTION DAILY [facility] Stop: 11/08/23 08:59 Last Admin: 11/11/22 [...] cultures remain negative. Respiratory PCR panel at [place] without targeted pathogen but parainfluenza 3 virus [...] then stop. Documented By: Sanjay Holt MD 11/11/221114 Signed By: <Electronically signed by MD Sanjay Holt> 11/11/221117 [facility] Work Phone: 1(624) 302-924105-05-2023 Progress note Author Rubi Ramos [facility] November 11, 2022 12:31am Note Date/Time November 10, 2022 6:42pm [facility] [address] [place] [address] Hospitalist Progress Note Signed Patient: Lori Anton MR#: [id number] : 1965 Acct:[id number] Age/Sex: 57 / M Adm Date: 3 Loc: Room: [address] [place] [address] Type: ADM IN Attending Dr: Rubi Ramos MD Copies to: ~ Date of Service: 11/10/2022 Subjective Subjective Narrative: Assessment And Plan 57M with PMH of HTN, DJD, Tobacco abuse, Depression who p/w ever, cough, and right-sided chest pain to the [facility] ED and Transferred for the evaluation and treatment of Bacterial pneumonia Bacterial pneumonia/Parainfluenza Infection Mild fever spike this morning UA was not suggestive for UTI, blood Cx obtained, leukocytosis Per chest CTA report done at [facility], there is evidence of 2.6 cm [...] 1,000 Ml IV 11/07/23 09:59 75 mls/hr .[id number] [facility] Administration Midazolam HCl 100 mg in 100 mls @ 1 mls/hr 11/09/22 11:00 11/10/22 06:34 Versed IV 05/08/23 10:59 6 mg/hr .Q24H [facility] 6 mls/hr Titration Protocol 1 MG/HR Insulin Aspart 0 units 11/08/22 12:00 11/10/22 18:29 Insulin Aspart 300 Units/3 Ml Insuln.Pen SUBCUT 11/08/23 11:59 Not Given Q6HR [facility] Protocol Ketorolac Tromethamine 30 mg 11/06/22 12:52 [...] Plan . Documented By: Rubi Ramos MD 11/10/22 1838 Signed By: <Electronically signed by Rubi Ramos MD> 11/11/22 0031 [facility] Work Phone: [phone]) [phone] Progress note Author Ismael Huitron [facility] November 10, 2022 2:27pm Note Date/Time November 10, 2022 2:27pm [facility] [address] [place] [address] Pulmonology Progress Note Signed Patient: Lori Anton MR#: [id number] : 1965 Acct:[id number] Age/Sex: 57 / M Adm Date: 3 Loc: Room: [address] [place] [address] Type: ADM IN Attending Dr: Rubi Ramos [...] pneumothorax: Plan: Patient required placement of 32 [place]ian chest tube to keep up with his [...] continue suctioning to -20 from both 32 [place] chest tubes * CC time 35 minutes Documented By: Ismael Huitron MD 11/10/22 142 Signed By: <Electronically signed by Ismael Huitron MD> 11/10/22 1423 [facility] Work Phone: [phone]) [phone] Progress note Author Sanjay Holt [facility] November 10, 2022 9:42am Note Date/Time November 10, 2022 9:38am [facility] [address] [place] [address] Infect. Disease Progress Note Signed Patient: Lori Anton MR#: [id number] : 1965 Acct:[id number] Age/Sex: 57 / M Adm Date: 3 Loc: Room: [address] [place] [address] Type: ADM IN Attending Dr: Rubi Ramos [...] Puff/18 Gm Inhaler) 6 puff VENT Q6HR [facility] Stop: 11/07/23 11:59 Last Admin: 11/10/22 06:30 Dose: 6 puff Albuterol/Ipratropium (Ipratropium/Albuterol 0.5-3 Mg 3 Ml Ampul.Neb) 3 ml INHALATION QID.RESP [facility] Stop: 11/05/23 07:59 Last Admin: 11/07/22 09:05 Dose: Not Given Amlodipine Besylate (Amlodipine 10 Mg Tablet) 10 mg PO DAILY@0600 [facility] Stop: 11/05/23 08:59 Last Admin: 11/08/22 07:00 Dose: 10 mg Budesonide (Budesonide 0.5 Mg/2 Ml Ampul.Neb) 0.5 mg INHALATION BID [facility] Stop: 11/05/23 11:39 Last Admin: 11/06/22 20:43 Dose: 0.5 mg Buprenorphine HCl (Buprenorphine Hcl 2 Mg Tab.Subl) 2 mg SUBLINGUAL BID@0600,1800 [facility] Stop: 05/06/23 05:59 Last Admin: 11/07/22 06:38 Dose: 2 mg Carvedilol (Carvedilol 12.5 Mg Tablet) 12.5 mg PO BID@0600,1800 [facility] Stop: 11/06/23 20:59 Last Admin: 11/08/22 07:00 Dose: 12.5 mg Chlorhexidine Gluconate (Chlorhexidine Gluconate 0.12% 15 Ml Udc) 15 ml MUCOUS MEM BID [facility] Stop: 11/07/23 09:09 Last Admin: 11/10/22 08:57 Dose: 15 ml Docusate Sodium (Docusate Liquid 100 Mg/10 Ml Udc) 100 mg OG-TUBE BID [facility] Stop: 11/07/23 08:59 Last Admin: 11/10/22 08:57 Dose: 100 mg Enoxaparin Sodium (Enoxaparin 40 Mg/0.4 Ml Syringe) 40 mg SUBCUT DAILY@1000 [facility] Stop: 11/06/23 09:59 Last Admin: 11/10/22 09:00 Dose: 40 mg Fluoxetine HCl (Fluoxetine Soln 20 Mg/5 Ml) 40 mg PO HS [facility] Stop: 11/07/23 21:59 Last Admin: 11/09/22 21:43 Dose: 40 mg Fluoxetine HCl (Fluoxetine Soln 20 Mg/5 Ml) 20 mg PO DAILY@0600 [facility] Stop: 11/08/23 05:59 Last Admin: 11/10/22 05:48 Dose: 20 mg Guaifenesin (Guaifenesin 600 Mg Tab.Er.12h) 1,200 mg PO BID [facility] Stop: 11/06/23 12:54 Last Admin: 11/06/22 20:51 Dose: 1,200 mg Levofloxacin (Levaquin) 750 mg in 150 mls @ 100 mls/hr IV Q24H [facility] Last Admin: 11/09/22 21:22 Dose: 100 mls/hr Clindamycin Phosphate (Cleocin) 600 mg in 50 mls @ 100 mls/hr IV Q8H [facility] Last Admin: 11/10/22 09:00 Dose: 100 mls/hr Fentanyl (Fentanyl 1,000 Mcg/100 Ml D5w) 1,000 mcg in 100 mls @ 2.5 mls/hr IV .Q24H [facility]; Protocol Last Admin: 11/10/22 08:57 Dose: 200 mcg/hr, 20 mls/hr Propofol (Diprivan) 1,000 mg in 100 mls @ 12.6 mls/hr IV .Q7H57M [facility]; Protocol Stop: 11/07/23 07:59 Last Admin: 11/10/22 07:51 Dose: 50 mcg/kg/min, 31.5 mls/hr Sodium Chloride (0.9% Sodium Chloride 1,000 Ml) 1,000 mls @ 75 mls/hr IV .[id number] [facility] Stop: 11/07/23 09:59 Last Admin: 11/10/22 06:29 Dose: Not Given Midazolam HCl (Versed) 100 mg in 100 mls @ 1 mls/hr IV .Q24H [facility]; Protocol Stop: 05/08/23 10:59 Last Titration: 11/10/22 06:34 Dose: 6 mg/hr, 6 mls/hr Insulin Aspart (Insulin Aspart 300 Units/3 Ml Insuln.Pen) 0 units SUBCUT Q6HR [facility]; Protocol Stop: 11/08/23 11:59 Last Admin: [...] 20 Mg Tablet) 20 mg PO DAILY@0600 [facility] Stop: 11/06/23 08:59 Last Admin: 11/08/22 07:00 Dose: 20 mg Magnesium Hydroxide (Magnesium Hydroxide Susp 30 Ml Udc) 30 ml PO DAILY PRN PRN Reason: Constipation Stop: 11/07/23 07:44 Methylprednisolone Sodium Succinate (Methylprednisolone Sod Succ/Pf 40 Mg/Ml (1ml) Vial) 40 mg IV-PUSH DAILY [facility] Stop: 11/10/23 08:59 Last Admin: 11/10/22 [...] DAILY [facility] Stop: 11/08/23 08:59 Last Admin: 11/10/22 08:57 [...] 10 Ml Vial.Pf) 10 ml INJECTION DAILY [facility] Stop: 11/08/23 08:59 Last Admin: 11/10/22 [...] cultures remain negative. Respiratory PCR panel at [place] without targeted pathogen but parainfluenza 3 virus [...] signed by MD Sanjay Holt> 11/10/22 0942 [facility] Work Phone: [phone] Progress note Author Rubi Ramos [facility] November 10, 2022 1:16am Note Date/Time November 09, 2022 7:10pm [facility] [address] [place] [address] Hospitalist Progress Note Signed Patient: Lori Anton MR#: [id number] : 1965 Acct:[id number] Age/Sex: 57 / M Adm Date: 3 Loc: Room: [address] [place] [address] Type: ADM IN Attending Dr: Rubi Ramos MD Copies to: ~ Date of Service: 11/09/2022 Subjective Subjective Narrative: Assessment And Plan 57M with PMH of HTN, DJD, Tobacco abuse, Depression who p/w ever, cough, and right-sided chest pain to the [facility] ED and Transferred for the evaluation and treatment of Bacterial pneumonia/Parainfluenza Infection Afebrile, leukocytosis is resolving , Per chest CTA report done at [facility], there is evidence of 2.6 cm [...] 1,000 Ml IV 11/07/23 09:59 Not Given .[id number] [facility] Midazolam HCl 100 mg in 100 mls @ 1 mls/hr 11/09/22 11:00 11/09/22 17:35 Versed IV 05/08/23 10:59 5 mg/hr .Q24H [facility] 5 mls/hr Titration Protocol 1 MG/HR Insulin Aspart 0 units 11/08/22 12:00 11/09/22 18:31 Insulin Aspart 300 Units/3 Ml Insuln.Pen SUBCUT 11/08/23 11:59 Not Given Q6HR [facility] Protocol Ketorolac Tromethamine 30 mg 11/06/22 12:52 11/07/22 04:21 Ketorolac Tromethamine 30 Mg/Ml Vial IV-PUSH 11/11/22 12:51 30 mg Q6H PRN Administration Pain Scale 7 - 10 Lidocaine HCl 10 ml 11/09/22 13:55 Lidocaine 1% Pf 5 Ml Inj.Zara INFILTRATN ONCE PRN Pain Lisinopril 20 mg 11/07/22 06:00 11/08/22 07:00 Lisinopril 20 Mg Tablet PO 11/06/23 08:59 20 mg DAILY@0600 [facility] Administration Magnesium Hydroxide 30 ml 11/07/22 07:45 Magnesium Hydroxide Susp 30 Ml Udc PO 11/07/23 07:44 DAILY PRN Constipation Methylprednisolone Sodium Succinate 40 mg 11/10/22 09:00 Methylprednisolone Sod Succ/Pf 40 Mg/Ml (1ml) Vial IV-PUSH 11/10/23 08:59 DAILY [facility] Metoprolol Tartrate 5 mg 11/07/22 05:11 [...] Plan . Documented By: Rubi Ramos MD 11/09/22 8211 Signed By: <Electronically signed by Rubi Ramos MD> 11/10/22 011 [facility] Work Phone: 1(725) 565-786505-03-2023 Progress note Author Ismael Huitron [facility] November 09, 2022 3:14pm Note Date/Time November 09, 2022 1:23pm [facility] [address] [place] [address] Pulmonology Progress Note Signed Patient: Lori Anton MR#: [id number] : 1965 Acct:[id number] Age/Sex: 57 / M Adm Date: 3 Loc: Room: [address] [place] [address] Type: ADM IN Attending Dr: Rubi Ramos MD Copies to: ~ Date of Service: 11/09/2022 Subjective Subjective Narrative: Patient continued to improve after placement of second chest tube, his air leak has diminished markedly since, chest x-ray continued show complete reexpansion of the lung, I will remove his small pneumothorax catheter from the right midclavicular area and maintain the large 32 [place] chest tube in place with suctioning at [...] pneumothorax: Plan: Patient required placement of 32 [place] chest tube to keep up with his [...] minutes Documented By: Ismael Huitron MD 11/09/22 5794 Signed By: <Electronically signed by Ismael Huitron MD> 11/09/22 1512 [facility] Work Phone: [phone]) [phone] [facility] Progress note Author Sanjay Holt [facility] November 09, 2022 9:12am Note Date/Time November 09, 2022 9:08am [facility] [address] [place] [address] Infect. Disease Progress Note Signed Patient: Lori Anton MR#: [id number] : 1965 Acct:[id number] Age/Sex: 57 / M Adm Date: 3 Loc: Room: [address] [place] [address] Type: ADM IN Attending Dr: Rubi Ramos [...] Puff/18 Gm Inhaler) 6 puff VENT Q6HR [facility] Stop: 11/07/23 11:59 Last Admin: 11/09/22 06:31 Dose: 6 puff Albuterol/Ipratropium (Ipratropium/Albuterol 0.5-3 Mg 3 Ml Ampul.Neb) 3 ml INHALATION QID.RESP [facility] Stop: 11/05/23 07:59 Last Admin: 11/07/22 09:05 Dose: Not Given Amlodipine Besylate (Amlodipine 10 Mg Tablet) 10 mg PO DAILY@0600 [facility] Stop: 11/05/23 08:59 Last Admin: 11/08/22 07:00 Dose: 10 mg Budesonide (Budesonide 0.5 Mg/2 Ml Ampul.Neb) 0.5 mg INHALATION BID [facility] Stop: 11/05/23 11:39 Last Admin: 11/06/22 20:43 Dose: 0.5 mg Buprenorphine HCl (Buprenorphine Hcl 2 Mg Tab.Subl) 2 mg SUBLINGUAL BID@0600,1800 [facility] Stop: 05/06/23 05:59 Last Admin: 11/07/22 06:38 Dose: 2 mg Carvedilol (Carvedilol 12.5 Mg Tablet) 12.5 mg PO BID@0600,1800 [facility] Stop: 11/06/23 20:59 Last Admin: 11/08/22 07:00 Dose: 12.5 mg Chlorhexidine Gluconate (Chlorhexidine Gluconate 0.12% 15 Ml Udc) 15 ml MUCOUS MEM BID [facility] Stop: 11/07/23 09:09 Last Admin: 11/09/22 08:28 Dose: 15 ml Docusate Sodium (Docusate Liquid 100 Mg/10 Ml Udc) 100 mg OG-TUBE BID [facility] Stop: 11/07/23 08:59 Last Admin: 11/09/22 08:28 Dose: 100 mg Enoxaparin Sodium (Enoxaparin 40 Mg/0.4 Ml Syringe) 40 mg SUBCUT DAILY@1000 [facility] Stop: 11/06/23 09:59 Last Admin: 11/08/22 10:14 Dose: 40 mg Fluoxetine HCl (Fluoxetine Soln 20 Mg/5 Ml) 40 mg PO HS [facility] Stop: 11/07/23 21:59 Last Admin: 11/08/22 21:00 Dose: 40 mg Fluoxetine HCl (Fluoxetine Soln 20 Mg/5 Ml) 20 mg PO DAILY@0600 [facility] Stop: 11/08/23 05:59 Last Admin: 11/09/22 05:06 Dose: 20 mg Guaifenesin (Guaifenesin 600 Mg Tab.Er.12h) 1,200 mg PO BID [facility] Stop: 11/06/23 12:54 Last Admin: 11/06/22 20:51 Dose: 1,200 mg Levofloxacin (Levaquin) 750 mg in 150 mls @ 100 mls/hr IV Q24H [facility] Last Infusion: 11/08/22 23:10 Dose: Infused Clindamycin Phosphate (Cleocin) 600 mg in 50 mls @ 100 mls/hr IV Q8H [facility] Last Infusion: 11/09/22 02:31 Dose: Infused Fentanyl (Fentanyl 1,000 Mcg/100 Ml D5w) 1,000 mcg in 100 mls @ 2.5 mls/hr IV .Q24H [facility]; Protocol Last Admin: 11/08/22 21:01 Dose: 100 mcg/hr, 10 mls/hr Propofol (Diprivan) 1,000 mg in 100 mls @ 12.6 mls/hr IV .[id number] [facility]; Protocol Stop: 11/07/23 07:59 Last Titration: 11/09/22 05:39 Dose: 40 mcg/kg/min, 25.2 mls/hr Sodium Chloride (0.9% Sodium Chloride 1,000 Ml) 1,000 mls @ 75 mls/hr IV .[id number] [facility] Stop: 11/07/23 09:59 Last Admin: 11/09/22 06:07 Dose: 75 mls/hr Cisatracurium Besylate 200 mg/ (Dextrose) 200 mls @ 12.6 mls/hr IV .[id number] [facility]; Protocol Stop: 11/07/23 10:29 Last Titration: 11/09/22 00:34 Dose: 3 mcg/kg/min, 18.9 mls/hr Insulin Aspart (Insulin Aspart 300 Units/3 Ml Insuln.Pen) 0 units SUBCUT Q6HR [facility]; Protocol Stop: 11/08/23 11:59 Last Admin: 11/09/22 05:26 Dose: Not Given Ketorolac Tromethamine (Ketorolac Tromethamine 30 Mg/Ml Vial) 30 mg IV-PUSH Q6HPRN PRN Reason: Pain Scale 7 - 10 Stop: 11/11/22 12:51 Last Admin: 11/07/22 04:21 Dose: 30 mg Lisinopril (Lisinopril 20 Mg Tablet) 20 mg PO DAILY@0600 [facility] Stop: 11/06/23 08:59 Last Admin: 11/08/22 07:00 Dose: 20 mg Magnesium Hydroxide (Magnesium Hydroxide Susp 30 Ml Udc) 30 ml PO DAILY PRN PRN Reason: Constipation Stop: 11/07/23 07:44 Methylprednisolone Sodium Succinate (Methylprednisolone Sod Succ/Pf 40 Mg/Ml (1ml) Vial) 40 mg IV-PUSH Q8HR [facility] Stop: 11/05/23 13:59 Last Admin: 11/09/22 [...] 40 Mg Vial) 40 mg IV-PUSH DAILY [facility] Stop: 11/08/23 08:59 Last Admin: 11/09/22 08:28 Dose: 40 mg Potassium Chloride (Potassium Chloride Er 20 Meq Tab.Er.Prt) 40 meq PO DAILY PRN PRN Reason: Hypokalemia Stop: 11/05/23 06:40 Last Admin: 11/05/22 08:43 Dose: 40 meq Sennosides (Sennosides Syrup 8.8 Mg/5 Ml Udc) 8.8 mg PO BID [facility] Stop: 11/07/23 08:59 Last Admin: 11/09/22 08:28 Dose: 8.8 mg Sodium Chloride (Sodium Chloride 0.9 % 10 Ml Syringe) 0 ml IV-PUSH QSHIFT [facility] Stop: 11/05/23 05:59 Last Admin: 11/09/22 05:07 [...] cultures remain negative. Respiratory PCR panel at [facility] without targeted pathogen but parainfluenza 3 virus targeted here. Legionella urine antigen negative, Legionella antibodies negative. Urinestrep antigen negative. HIV negative. Continues on Levaquin and Flagyl. Day 5of antibiotics Documented By: Sanjay Holt MD 11/09/22905 Signed By: <Electronically signed by MD Sanjay Holt> 11/09/22911 [facility] Work Phone: 1([phone]) 211-465305-03-2023 Progress note Author Rubi Ramos [facility] November 09, 2022 1:09am Note Date/Time November 08, 2022 7:20pm [facility] [address] [place] [address] Hospitalist Progress Note Signed Patient: Lori Anton MR#: [id number] : 1965 Acct:[id number] Age/Sex: 57 / M Adm Date: 3 Loc: Room: [address] [place] [address] Type: ADM IN Attending Dr: Rubi Ramos [...] 1,000 Ml IV 11/07/23 09:59 Not Given .[id number] [facility] Cisatracurium Besylate 200 mg/ 200 mls @ 12.6 mls/hr 11/07/22 10:30 11/08/22 17:38 Dextrose IV 11/07/23 10:29 3 mcg/kg/min .[id number] [facility] 18.9 mls/hr Titration Protocol 2 MCG/KG/MIN Norepinephrine Bitartrate 8 mg in 250 mls @ 3.75 mls/hr 11/07/22 17:15 11/08/22 17:39 Levophed IV 11/07/23 17:14 Not Given .Q24H [facility] Protocol 2 MCG/MIN Insulin Aspart 0 units 11/08/22 12:00 11/08/22 17:45 Insulin Aspart 300 Units/3 Ml Insuln.Pen SUBCUT 11/08/23 11:59 Not Given Q6HR [facility] Protocol Ketorolac Tromethamine 30 mg 11/06/22 [...] <Electronically signed by Rubi Ramos MD> 11/09/22 010 [facility] Work Phone: 1([phone] 284-748905-02-2023 Progress note Author Ismael Marquitatrinity [facility] November 08, 2022 3:23pm Note Date/Time November 08, 2022 3:23pm [facility] [address] [place] [address] Pulmonology Progress Note Signed Patient: Lori Anton MR#: [id number] : 1965 Acct:[id number] Age/Sex: 57 / M Adm Date: 3 Loc: Room: 6Y8431-8 Type: ADM IN Attending Dr: Rubi Ramos MD Copies to: ~ Date of Service: 11/08/2022 Subjective Subjective Narrative: Patient has stabilized from the respiratory standpoint overnight but had worsening air leak from his chest tube now continuous air leak is noted this morning, chest x-ray showed worsening right pneumothorax, immediately after seeing that I placed a 32 Gambian chest tube in addition to the small pneumothorax catheter in place, he had continuous air leak from both, and chest x-ray showed complete reexpansion of the lung after the second chest tube placement. This was accompanied by improving oxygenation he is down to 40% [id number]. 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 (3) Hilar lymphadenopathy: Plan: This could be reactive, there was no evidence of [facility] patient expanded well once intubated, [...] <Electronically signed by Ismael Huitron MD> 11/08/22 1528 [facility] Work Phone: 1([phone]) 389-352805-02-2023 [facility] Progress note Author Sanjay Holt [facility] November 08, 2022 8:52am Note Date/Time November 08, 2022 8:47am [facility] [address] [place] [address] Infect. Disease Progress Note Signed Patient: Lori Anton MR#: [id number] : 1965 Acct:[id number] Age/Sex: 57 / M Adm Date: 3 Loc: Room: [address] [place] [address] Type: ADM IN Attending Dr: Rubi Ramos [...] 64 20 86/53 L 97 Mechanical Ventilation 100 11/07/22 11:00 100 11/07/22 10:00 100 11/07/22 [...] ml @ 2 MCG/KG/MIN 12.6 mls/hr IV .[id number] [facility] Rx#:[id number] Clindamycin 600 mg/50 ml-*D5w* 50 / 150 50 / 50 600 mg In 50 ml @ 100 mls/hr IV Q8H [facility] Rx#:[id number] Sodium Chloride 0.9% 1,000 ml 1 1000 / 1000 ,000 ml @ 75 mls/hr IV .[id number] [facility] Rx#:[id number] fentaNYL 1,000 mcg-*D5W* 1,000 100 / 200 mcg In 100 ml @ 25 MCG/HR 2.5 mls/hr IV .Q24H [facility] Rx#: [id number] levoFLOXacin 750MG-*D5W* 750 mg 150 / 150 In 150 ml @ 100 mls/hr IV Q24H [facility] Rx#:[id number] propofoL 1,000 mg In 100 ml @ 200 / 400 100 / 100 20 MCG/KG/MIN 12.6 mls/hr IV . Q7H57M [facility] Rx#:[id number] Tube Feeding 0 / 0 Tube Irrigant [...] Q6HR [facility] Stop: 11/07/23 11:59 Last Admin: 11/08/22 05:35 Dose: 6 puff Albuterol/Ipratropium (Ipratropium/Albuterol 0.5-3 Mg 3 Ml Ampul.Neb) 3 ml INHALATION QID.RESP [facility] Stop: 11/05/23 07:59 Last Admin: 11/07/22 09:05 Dose: Not Given Amlodipine Besylate (Amlodipine 10 Mg Tablet) 10 mg PO DAILY@0600 [facility] Stop: 11/05/23 08:59 Last Admin: 11/08/22 07:00 Dose: 10 mg Budesonide (Budesonide 0.5 Mg/2 Ml Ampul.Neb) 0.5 mg INHALATION BID [facility] Stop: 11/05/23 11:39 Last Admin: 11/06/22 20:43 Dose: 0.5 mg Buprenorphine HCl (Buprenorphine Hcl 2 Mg Tab.Subl) 2 mg SUBLINGUAL BID@0600,1800 [facility] Stop: 05/06/23 05:59 Last Admin: 11/07/22 06:38 Dose: 2 mg Carvedilol (Carvedilol 12.5 Mg Tablet) 12.5 mg PO BID@0600,1800 [facility] Stop: 11/06/23 20:59 Last Admin: 11/08/22 07:00 Dose: 12.5 mg Chlorhexidine Gluconate (Chlorhexidine Gluconate 0.12% 15 Ml Udc) 15 ml MUCOUS MEM BID [facility] Stop: 11/07/23 09:09 Last Admin: 11/07/22 21:56 Dose: 15 ml Docusate Sodium (Docusate Liquid 100 Mg/10 Ml Udc) 100 mg OG-TUBE BID [facility] Stop: 11/07/23 08:59 Last Admin: 11/07/22 21:56 Dose: 100 mg Enoxaparin Sodium (Enoxaparin 40 Mg/0.4 Ml Syringe) 40 mg SUBCUT DAILY@1000 [facility] Stop: 11/06/23 09:59 Last Admin: 11/07/22 10:37 Dose: 40 mg Fluoxetine HCl (Fluoxetine Soln 20 Mg/5 Ml) 40 mg PO HS [facility] Stop: 11/07/23 21:59 Last Admin: 11/07/22 21:57 Dose: 40 mg Fluoxetine HCl (Fluoxetine Soln 20 Mg/5 Ml) 20 mg PO DAILY@0600 [facility] Stop: 11/08/23 05:59 Last Admin: 11/08/22 07:00 Dose: 20 mg Guaifenesin (Guaifenesin 600 Mg Tab.Er.12h) 1,200 mg PO BID [facility] Stop: 11/06/23 12:54 Last Admin: 11/06/22 20:51 Dose: 1,200 mg Levofloxacin (Levaquin) 750 mg in 150 mls @ 100 mls/hr IV Q24H [facility] Last Infusion: 11/07/22 23:33 Dose: Infused Clindamycin Phosphate (Cleocin) 600 mg in 50 mls @ 100 mls/hr IV Q8H [facility] Last Infusion: 11/08/22 06:00 Dose: Infused Fentanyl (Fentanyl 1,000 Mcg/100 Ml D5w) 1,000 mcg in 100 mls @ 2.5 mls/hr IV .Q24H [facility]; Protocol Last Admin: 11/08/22 02:00 Dose: 100 mcg/hr, 10 mls/hr Propofol (Diprivan) 1,000 mg in 100 mls @ 12.6 mls/hr IV .Q7H57M [facility]; Protocol Stop: 11/07/23 07:59 Last Admin: 11/08/22 04:01 Dose: 35 mcg/kg/min, 22.05 mls/hr Sodium Chloride (0.9% Sodium Chloride 1,000 Ml) 1,000 mls @ 75 mls/hr IV .[id number] [facility] Stop: 11/07/23 09:59 Last Admin: 11/07/22 23:32 Dose: 75 mls/hr Cisatracurium Besylate 200 mg/ (Dextrose) 200 mls @ 12.6 mls/hr IV .[id number] [facility]; Protocol Stop: 11/07/23 10:29 Last Admin: 11/08/22 06:29 Dose: 2 mcg/kg/min, 12.6 mls/hr Norepinephrine Bitartrate (Levophed) 8 mg in 250 mls @ 3.75 mls/hr IV .Q24H [facility]; Protocol Stop: 11/07/23 17:14 Last Admin: 11/08/22 07:54 Dose: Not Given Ketorolac Tromethamine (Ketorolac Tromethamine 30 Mg/Ml Vial) 30 mg IV-PUSH Q6HPRN PRN Reason: Pain Scale 7 - 10 Stop: 11/11/22 12:51 Last Admin: 11/07/22 04:21 Dose: 30 mg Lisinopril (Lisinopril 20 Mg Tablet) 20 mg PO DAILY@0600 [facility] Stop: 11/06/23 08:59 Last Admin: 11/08/22 07:00 Dose: 20 mg Magnesium Hydroxide (Magnesium Hydroxide Susp 30 Ml Udc) 30 ml PO DAILY PRN PRN Reason: Constipation Stop: 11/07/23 07:44 Methylprednisolone Sodium Succinate (Methylprednisolone Sod Succ/Pf 40 Mg/Ml (1ml) Vial) 40 mg IV-PUSH Q8HR [facility] Stop: 11/05/23 13:59 Last Admin: 11/08/22 [...] 40 Mg Vial) 40 mg IV-PUSH DAILY [facility] Stop: 11/08/23 08:59 Potassium Chloride (Potassium Chloride Er 20 Meq Tab.Er.Prt) 40 meq PO DAILY PRN PRN Reason: Hypokalemia Stop: 11/05/23 06:40 Last Admin: 11/05/22 08:43 Dose: 40 meq Sennosides (Sennosides Syrup 8.8 Mg/5 Ml Udc) 8.8 mg PO BID [facility] Stop: 11/07/23 08:59 Last Admin: 11/07/22 21:56 Dose: 8.8 mg Sodium Chloride (Sodium Chloride 0.9 % 10 Ml Syringe) 0 ml IV-PUSH QSHIFT [facility] Stop: 11/05/23 05:59 Last Admin: 11/08/22 07:00 Dose: 40 ml Sodium Chloride (Sodium Chloride 0.9 % 10 Ml Syringe) 10 ml IV-PUSH PRN PRN PRN Reason: Flush Stop: 11/07/23 08:37 Sodium Chloride (Sodium Chloride 0.9 % 10 Ml Vial.Pf) 10 ml INJECTION DAILY [facility] Stop: 11/08/23 08:59 Tizanidine HCl (Tizanidine [...] drug history. Documented By: Sanjay Holt MD 11/08/2245 Signed By: <Electronically signed by MD Sanjay Holt> 11/08/22 0852 [facility] Work Phone: [phone] 516-902505-02-2023 Progress note Author Rubi Ramos [facility] November 08, 2022 1:26am Note Date/Time November 07, 2022 4:20pm [facility] [address] [place] [address] Hospitalist Progress Note Signed Patient: Lori Anton MR#: [id number] : 1965 Acct:[id number] Age/Sex: 57 / M Adm Date: 3 Loc: Room: [address] [place] [address] Type: ADM IN Attending Dr: Rubi Ramos [...] Ventilation 65 11/07/22 12:00 11/07/22 14:00 11/07/22 14:11/07/22 14:11/07/22 14:11/07/22 14:11/07/22 00:00 FiO2 100 11/07/22 14:00 Narrative: GENERAL: [...] [facility] Administration Carvedilol 12.5 mg 11/06/22 21:00 11/07/22 06:37 Carvedilol 12.5 Mg Tablet PO 11/06/23 20:59 12.5 mg BID@0600,1800 [facility] Administration Chlorhexidine Gluconate 15 ml 11/07/22 09:10 11/07/22 10:41 Chlorhexidine Gluconate 0.12% 15 Ml Udc MUCOUS MEM 11/07/23 09:09 15 ml BID [facility] Administration Docusate Sodium 100 mg 11/07/22 09:00 11/07/22 09:37 Docusate Liquid 100 Mg/10 Ml Udc OG-TUBE 11/07/23 08:59 Not Given BID [facility] Enoxaparin Sodium 40 mg 11/06/22 10:00 11/07/22 10:37 Enoxaparin 40 Mg/0.4 Ml Syringe SUBCUT 11/06/23 09:59 40 mg DAILY@1000 [facility] Administration Fluoxetine HCl 40 mg 11/07/22 22:00 Fluoxetine Soln 20 Mg/5 Ml PO 11/07/23 21:59 HS [facility] Fluoxetine HCl 20 mg 11/08/22 06:00 Fluoxetine Soln 20 Mg/5 Ml PO 11/08/23 05:59 DAILY@0600 [facility] Guaifenesin 1,200 mg 11/06/22 12:55 11/06/22 [...] 1,000 Ml IV 11/07/23 09:59 75 mls/hr .[id number] [facility] Administration Cisatracurium Besylate 200 mg/ 200 mls @ 12.6 mls/hr 11/07/22 10:30 11/07/22 10:57 Dextrose IV 11/07/23 10:29 1.5 mcg/kg/min .[id number] [facility] 9.45 mls/hr Administration Protocol 2 MCG/KG/MIN [...] . Documented By: Rubi Ramos MD 11/07/22 1455 Signed By: <Electronically signed by Rubi Ramos MD> 11/08/22 0126 [facility] Work Phone: [phone] 544-871305-01-2023 Progress note Author Ismael Huitron [facility] November 07, 2022 2:05pm Note Date/Time November 07, 2022 1:56pm [facility] [address] [place] [address] Pulmonology Progress Note Signed Patient: Lori Anton MR#: [id number] : 1965 Acct:[id number] Age/Sex: 57 / M Adm Date: 3 Loc: Room: [address] [place] [address] Type: ADM IN Attending Dr: Rubi Ramos MD Copies to: ~ Date of Service: 11/07/2022 Subjective Subjective Narrative: Patient developed progressive respiratory distress overnight associated with right-sided pleuritic pain, due to severe hypoxia and work of breathing, patientwas intubated by nurse sewing inspector this morning, immediately following that and with [...] signed by Ismael Huitron MD> 11/07/22 1405 [facility] Work Phone: [phone] 185-945905-01-2023 Procedure [facility]05-01-2023 Procedure [facility]05-01-2023 History general Narrative - Reported* Type Description Date Medical History htn Medical History arthritis Medical History anxiety Hospitalization History [facility] [place]2022 [facility] Other 05-01-2023 Consult note Author Sanjay Holt [facility] November 07, 2022 9:23am Note Date/Time November 07, 2022 9:11am [facility] [address] [place] [address] Infect. Disease Consult Note Signed Patient: Lori Anton MR#: [id number] : 1965 Acct:[id number] Age/Sex: 57 / M Adm Date: 3 Loc: Room: [address] [place] [address] Type: ADM IN Attending Dr: Netta Wiseman MD Copies to: Shaista Corona, COKEMANEvaC MD Netta Montez MD~ HPI Data of Consult Consult date: 11/07/22 Requesting Physician: Netta Wiseman MD Primary Care Provider: Shaista Corona Consult Narrative History of present illness: Mr. Anton is a 57 year old male who is currently intubated and sedated on the ventilator. He had been at [facility] prior to coming to [facility] and was centerspecifically to have a bronchoscopy performed. He has pneumonia that PCR panel from [facility] did not yield any targets but respiratory [...] Puff/18 Gm Inhaler) 6 puff VENT Q6HR [facility] Stop: 11/07/23 11:59 Albuterol/Ipratropium (Ipratropium/Albuterol 0.5-3 Mg 3 Ml Ampul.Neb) 3 ml INHALATION QID.RESP [facility] Stop: 11/05/23 07:59 Last Admin: 11/06/22 20:43 Dose: 3 ml Amlodipine Besylate (Amlodipine 10 Mg Tablet) 10 mg PO DAILY@0600 [facility] Stop: 11/05/23 08:59 Last Admin: 11/07/22 06:36 Dose: 10 mg Budesonide (Budesonide 0.5 Mg/2 Ml Ampul.Neb) 0.5 mg INHALATION BID [facility] Stop: 11/05/23 11:39 Last Admin: 11/06/22 20:43 Dose: 0.5 mg Buprenorphine HCl (Buprenorphine Hcl 2 Mg Tab.Subl) 2 mg SUBLINGUAL BID@0600,1800 [facility] Stop: 05/06/23 05:59 Last Admin: 11/07/22 06:38 Dose: 2 mg Carvedilol (Carvedilol 12.5 Mg Tablet) 12.5 mg PO BID@0600,1800 [facility] Stop: 11/06/23 20:59 Last Admin: 11/07/22 06:37 Dose: 12.5 mg Docusate Sodium (Docusate Liquid 100 Mg/10 Ml Udc) 100 mg OG-TUBE BID [facility] Stop: 11/07/23 08:59 Enoxaparin Sodium (Enoxaparin 40 Mg/0.4 Ml Syringe) 40 mg SUBCUT DAILY@1000 [facility] Stop: 11/06/23 09:59 Last Admin: 11/06/22 09:09 Dose: 40 mg Fluoxetine HCl (Fluoxetine Soln 20 Mg/5 Ml) 40 mg PO HS [facility] Stop: 11/07/23 21:59 Fluoxetine HCl (Fluoxetine Soln 20 Mg/5 Ml) 20 mg PO DAILY@0600 [facility] Stop: 11/08/23 05:59 Guaifenesin (Guaifenesin 600 Mg Tab.Er.12h) 1,200 mg PO BID [facility] Stop: 11/06/23 12:54 Last Admin: 11/06/22 20:51 Dose: 1,200 mg Levofloxacin (Levaquin) 750 mg in 150 mls @ 100 mls/hr IV Q24H [facility] Last Admin: 11/06/22 21:00 Dose: 100 mls/hr Clindamycin Phosphate (Cleocin) 600 mg in 50 mls @ 100 mls/hr IV Q8H [facility] Last Admin: 11/07/22 02:14 Dose: 100 mls/hr Fentanyl (Fentanyl 1,000 Mcg/100 Ml D5w) 1,000 mcg in 100 mls @ 2.5 mls/hr IV .Q24H [facility]; Protocol Propofol (Diprivan) 1,000 mg in 100 mls @ 12.6 mls/hr IV .Q7H57M [facility]; Protocol Stop: 11/07/23 07:59 Ketorolac Tromethamine (Ketorolac Tromethamine 30 Mg/Ml Vial) 30 mg IV-PUSH Q6HPRN PRN Reason: Pain Scale 7 - 10 Stop: 11/11/22 12:51 Last Admin: 11/07/22 04:21 Dose: 30 mg Lisinopril (Lisinopril 20 Mg Tablet) 20 mg PO DAILY@0600 [facility] Stop: 11/06/23 08:59 Last Admin: 11/07/22 06:37 Dose: 20 mg Magnesium Hydroxide (Magnesium Hydroxide Susp 30 Ml Udc) 30 ml PO DAILY PRN PRN Reason: Constipation Stop: 11/07/23 07:44 Methylprednisolone Sodium Succinate (Methylprednisolone Sod Succ/Pf 40 Mg/Ml (1ml) Vial) 40 mg IV-PUSH Q8HR [facility] Stop: 11/05/23 13:59 Last Admin: 11/07/22 [...] 40 Mg Vial) 40 mg IV-PUSH DAILY [facility] Stop: 11/08/23 08:59 Potassium Chloride (Potassium [...] 10 Ml Vial.Pf) 10 ml INJECTION DAILY [facility] Stop: 11/08/23 08:59 Tizanidine HCl (Tizanidine [...] 05:28 100 11/07/22 06:00 100 11/07/22 05:00 11/07/22 04:00 11/07/22 04:00 11/07/22 03:00 11/07/22 02:00 11/07/22 02:09 11/06/22 20:00 11/07/22 01:00 11/07/22 00:00 11/06/22 23:00 11/06/22 22:00 11/06/22 21:00 11/06/22 20:00 11/07/22 00:00 11/06/22 23:14 11/06/22 20:38 11/06/22 20:00 11/06/22 20:25 11/06/22 18:55 11/06/22 16:00 11/06/22 16:00 11/06/22 16:00 11/06/22 16:01 11/06/22 15:50 11/06/22 12:59 11/06/22 12:00 11/06/22 12:57 11/06/22 12:00 11/06/22 12:19 11/06/22 11:00 11/06/22 12:00 Intake and Output 11/06/22 11/07/22 11/07/22 23:59 07:59 15:59 Intake Total 730 / 1630 500 / 500 Output Total 300 / 1150 450 / 450 Balance 430 / 480 50 / 50 Intake: IV 50 / 150 Clindamycin 600 mg/50 ml-*D5w* 50 / 150 600 mg In 50 ml @ 100 mls/hr IV Q8H [facility] Rx#:[id number] Oral 680 / 1480 500 / 500 [...] cultures remain negative. Respiratory PCR panel at [facility] without targeted pathogen but parainfluenza 3 virus targeted here. Will check antibodies to Legionella and urine antigen for Legionella and Streptococcus. Documented By: Sanjay Holt MD 11/07/22902 Signed By: <Electronically signed by MD Sanjay Holt> 11/07/22922 [facility] Work Phone: 1([phone]) 106-226805-01-2023 [facility] Progress note Author Kaylee Mclaughlin [facility] November 06, 2022 4:09pm Note Date/Time November 06, 2022 4:1 0pm [facility] [address] [place] [address] Pulmonology Progress Note Signed Patient: Lori Anton MR#: [id number] : 1965 Acct:[id number] Age/Sex: 57 / M Adm Date: 3 Loc: Room: [address] [place] [address] Type: ADM IN Attending Dr: Netta Wiseman [...] No deformity. -Skin: No rash. Slightly diaphoretic. 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 [...] as the CT angiogram was done at [facility] and no disc was sent with records. We did call [facility] and requested chest CTA imaging. -Chest [...] Plan: -Per chest CTA report done at [facility], there is evidence of 2.6 cm right hilar lymph node compressing the right lower lobe bronchus leading to right lower lobe atelectasis . - Again, the CTA film is not available for my review at this time, this was requested from [facility]. However this is concerning for primary [...] undiagnosed COPD Plan -Patient was sent from [facility] ED to [facility] after hewas told he needed bronchoscopy. -Repeat [...] <Electronically signed by Kaylee Mclaughlin MD> 11/06/22 7371 [facility] Work Phone: 1(400) 754-419004-30-2023 Progress note Author [facility] November 06, 2022 8:49am Note Date/Time November 06, 2022 8:4 9am [facility] [address] [place] [address] Hospitalist Progress Note Signed Patient: Lori Anton MR#: [id number] : 1965 Acct:[id number] Age/Sex: 57 / M Adm Date: 3 Loc: 4 Room: [address] [place] [address] Type: ADM IN Attending Dr: Netta Wiseman [...] 11/06/22 03:33 Cleocin IV 100 mls/hr Q8H [facility] Administration Sodium Chloride 500 mls @ 250 [...] signed by Netta Wiseman MD> 11/06/22 0849 [facility] Work Phone: [phone] Consult note Author Kaylee Mclaughlin [facility] November 05, 2022 12:45pm Note Date/Time November 05, 2022 12: 05pm [facility] [address] [place] [address] Pulmonology Consult Note Signed Patient: Lori Anton MR#: [id number] : 1965 Acct:[id number] Age/Sex: 57 / M Adm Date: 3 Loc: Room: [address] [place] [address] Type: ADM IN Attending Dr: Netta Wiseman MD Copies to: Shaista Corona, COKEMAN-C MD Netta Pillai MD~ HPI Date/Time of Consultation: Date of Service: 11/05/2022 Time of Service: 11:45 Consulting Provider: Kaylee Mclaughlin Requesting Provider: Netta Wiseman Reason for Consult: Acute hypoxemic respiratory failure, right lower lobe atelectasis History of Present Illness History of present illness: Mr. Anton is a 57 year old male with more than 97-ukrb-gxdl smoking history whosmokes a pack a day, history of hypertension and arthritis was transferred from [facility] last night for acute hypoxic respiratory [...] the visit to the emergency room at [facility] however due to no pulmonary addictions counselor assistant [facility]. [facility] tells me he smokes a pack [...] No recent travel. Chest CT angiogram at [facility] reported negative for PE, showed multifocal [...] weight change. Review of systems otherwise negative. [facility] Vaccinated for COVID-19?: No Medical History (Updated [...] No deformity. Skin: No rash. Slightly diaphoretic. 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 [...] as the CT angiogram was done at [facility] and no disc was sent with records. We did call [facility] and requested chest CTA imaging. -Start high flow nasal cannula with flow rate 40 L/min and FiO2 60% -Titrate FiO2 as needed for target SPO2> 90% -Potential underlying chronic obstructive of pulmonary disease, treat with nebulized short acting bronchodilators, budesonide, and systemic corticosteroids (2) Hilar lymphadenopathy: Plan: -Per chest CTA report done at [facility], there is evidence of 2.6 cm right hilar lymph node compressing the right lower lobe bronchus leading to right lower lobe atelectasis . - Again, the CTA film is not available for my review at this time, this was requested from [facility]. However this is concerning for primary [...] signed by Kaylee Mclaughlin MD> 11/05/22 1245 [facility] Work Phone: [phone]) [phone] Progress note Author Netta Wiseman [facility] November 05, 2022 9:09am Note Date/Time November 05, 2022 9:0 9am [facility] [address] [place], [place] [id number] Event Note Signed Patient: Lori Anton MR#: [id number] : 1965 Acct:[id number] Age/Sex: 57 / M Adm Date: 3 Loc: 3T Room: [address] [place] [address] Type: ADM IN Attending Dr: Netta Wiseman MD Copies to: Shaista Corona, COKEMAN-C Netta Wiseman MD~ Event Date & Type [...] Suspect obstructive pneumonia. CT scan done at [facility] did not show any pulmonary embolism. Patient [...] thus far Documented By: Netta Wiseman MD 11/05/22904 Signed By: <Electronically signed by Netta Wiseman MD> 11/05/22908 [facility] Work Phone: 1(359) 780-706404-29-2023 History and physical note Author Derek Alex [facility] November 05, 2022 6:38am Note Date/Time November 05, 2022 4:0 0am [facility] [address] [place] [address] Hospitalist H&P Signed with Addenda Patient: Lori Anton MR#: [id number] : 1965 Acct:[id number] Age/Sex: 57 / M Adm Date: 3 Loc: Room: [address] [place] [address] Type: ADM IN Attending Dr: Derek Alex MD Copies to: MD Shaista Bustamante, COKEMAN-C Annabel Boo, MARLO~ ADDENDUM1 I personally saw this patient on the day of the encounter, reviewed the history,performed the borrego elements of the exam and formulated the plan of care and confirmed the nurse practitioners/residents/campus recruiting intern written note. Addendum Documented By: Derek Alex MD 11/05/22 0637 Addendum Signed By: <Electronically signed by Derek Alex MD> 11/05/22 0637 HPI DATE OF EXAMINATION: 11/05/22 CHIEF COMPLAINT: fever, cough, right sided chest pain HISTORY OF PRESENT ILLNESS: Mr. Anton is a 57-year-old male with a PMH of HTN, arthritis that presented to the [facility] emergency room for fever, cough, and right- sided chest pain. Patient seen and evaluated upon transfer at bedside, at bedside. [facility] hospital work-up with a positive D-dimer 0.96, [...] the day decided to go to the [facility] emergency room and then hewas transferred [...] unless noted in the HPI or below. [facility] Attestation Statement: The following information was validated [...] diet Documented By: Annabel Boo APRN 11/05/22 0359 Signed By: <Electronically signed by AMRLO Boo> 11/05/22 0437 <Electronically signed by Derek Alex MD> 11/05/22 0635 [facility] Work Phone: [phone]) 236-213812-29-2022 Evaluation note* Encounter Date Diagnosis Assessment Notes [...] care provider if no improvement of symptoms. [facility] Other Evaluation note* Diagnosis Onset Date Resolution Status Acute hypoxemic respiratory failure acute Atelectasis acute Community acquired pneumonia acute Fever acute Hilar lymphadenopathy acute HTN (hypertension) acute Nicotine dependence acute Parainfluenza acute Tension pneumothorax acute [facility] Work Phone: Evaluation noteNo assessment information available [facility] Work Phone: History general Narrative - Reported* Type Description Date Medical History htn Medical History arthritis Medical History anxiety [facility] Other Hospital Discharge instructionsAmbulatory Orders* Initiate Home [...] [facility] Discharge instructions Additional Instructions Avoid smoking Push fluids Rest Follow with your PCP Return here if any problems persist or worsen include chest pain, shortness of breath or any other concern[facility] Work Phone: Summary Purpose Family History No Family History Records Found Relationship Condition Age at Onset Recorded Date/T sun Not Specified Coronary artery disease Unknown Advance Directives No Advanced Directives Records Found Advance Directive Response Recorded Date/ Time Advance Directives No November 04, 023 11:14pm Advance Directive Response Recorded Date/ [...] section and content) DATE CREATED AUTHOR 12/19/2018 [facility] DATE CREATED AUTHOR AUTHOR'S ORGANIZ ATION 11/11/2022 [facility] DATE CREATED AUTHOR AUTHOR'S ORGANIZ ATION 05/24/2023 [facility] DATE CREATED AUTHOR AUTHOR'S ORGANIZ ATION 10/04/2023 [facility] DATE CREATED AUTHOR AUTHOR'S ORGANIZ ATION 11/01/2023 [facility] EPIC REASON FOR VISIT (unrecogniz ed section and [...] Shaista Corona Primary Care Provider Active Lisha Sliva APRN Emergency Provider Active Team Status: Inactive Member Role Status Dates Shaista Corona Primary Care Provider Active Evi Gay APRN [facility] Attending Provider Active Team Status: Inactive Member [...] BE BASED ON THE PRIMARY CLINICAL RECORDS. [employer] [facility]. provides no warranty or guarantee of the accuracy or completeness of information in this document.
== END 2023-11-13 07:12 | disposition home or self-care (01) ==
LOC: MRI 07:11
PROVIDERS: PCP Nurse Practitioner; Visit Provider Orthopaedic Surgery
DX: M54.16 Radiculopathy, lumbar region (principal); M51.36 Other intervertebral disc degeneration, lumbar region
CPT/HCPCS: 72148

== ENCOUNTER 2024-05-02 16:57 | Outpatient (OUT) | payer BC, SELFPAY ==
[2024-05-02 17:13] LABS: Basophils Absolute Auto 0.1 10^3/uL (0.0-0.1); Basophils Percent Auto 1.1 % (0.2-2.0); Eosinophils Absolute Auto 0.5 10^3/uL (0.0-0.7); Eosinophils Percent Auto 6.9 % (0.9-7.0); Hematocrit 39.5 % (42.0-54.0); Immature Granulocytes Abs Auto 0.01 10^3/uL (0.00-0.03); Immature Granulocytes Pct Auto 0.1 % (0.0-0.5); Lymphocytes Absolute Auto 3.4 10^3/uL (1.2-3.8); Lymphocytes Percent Auto 43.6 % (20.5-60.0); Mean Corpuscular HGB Conc 32.9 g/dL (29.9-35.2); Mean Corpuscular Hemoglobin 30.4 pg (25.9-34.0); Mean Corpuscular Volume 92.3 fL (80.0-94.0); Mean Platelet Volume 9.7 fL (9.5-13.5); Monocytes Absolute Auto 0.7 10^3/uL (0.3-0.8); Monocytes Percent Auto 8.7 % (1.7-12.0); Neutrophils Absolute Auto 3.1 10^3/uL (1.4-6.5); Neutrophils Percent Auto 39.6 % (43.0-75.0); Platelet Count 289 10^3/uL (150-450); Red Blood Count 4.28 10^6/uL (4.70-6.10); White Blood Count 7.8 10^3/uL (4.0-11.0)
[2024-05-02 17:14] LABS: Bilirubin Urine NEGATIVE (NEGATIVE); Blood Urine SMALL (NEGATIVE); Clarity Urine CLEAR (CLEAR); Color Urine LT. YELLOW (YELLOW); Glucose Urine UA NEGATIVE (NEGATIVE); Ketones Urine NEGATIVE (NEGATIVE); Leukocyte Esterase Urine NEGATIVE (NEGATIVE); Nitrite Urine NEGATIVE (NEGATIVE); Protein Urine NEGATIVE (NEG/TRACE); Specific Gravity Urine 1.025 (1.005-1.025); Urobilinogen Urine 0.2 EU/dL (0.2-1.0); pH Urine 5.5 (5.0-9.0)
[2024-05-02 17:16] LABS: Urine Microscopic Indicated YES
[2024-05-02 17:20] LABS: WBC Urine NONE SEEN #/HPF (NONE SEEN)
[2024-05-02 17:21] LABS: Erythrocyte Sedimentation Rate 39 mm/hr (<=20)
[2024-05-02 17:21] LABS: Bacteria Urine NONE SEEN #/HPF (NONE SEEN); Cast Seen? NONE SEEN #/LPF (NONE SEEN); Crystals Seen? None Seen #/HPF (None Seen); Mucus Urine NONE SEEN (NONE SEEN); Squamous Epithelial Cell Urine RARE #/LPF (NONE/RARE)
[2024-05-02 17:26] LABS: Alanine Aminotransferase 26 U/L (16-63); Albumin Globulin Ratio 0.9; Albumin Level 3.1 g/dL (3.4-5.0); Alkaline Phosphatase 86 U/L (46-116); Anion Gap 12.1; Aspartate Amino Transferase 16 U/L (15-37); BUN Creatinine Ratio 21.2; Bilirubin Total 0.3 mg/dL (0.2-1.0); Calcium 9.1 mg/dL (8.5-10.1); Carbon Dioxide 27.8 mmol/L (21.0-32.0); Chloride 107 mmol/L (98-107); Estimated GFR (African America >60 (>=60 mL/min/1.73m^2); Estimated GFR (Non-African Ame >60 (>=60 mL/min/1.73m^2); Globulin 3.5 g/dL; Glucose 99 mg/dL (74-106); Potassium 3.9 mmol/L (3.5-5.1); Sodium 143 mmol/L (136-145); Total Protein 6.6 g/dL (6.4-8.2); Uric Acid 4.3 mg/dL (3.5-7.2)
== END 2024-05-02 16:58 | disposition home or self-care (01) ==
PROVIDERS: PCP Nurse Practitioner; Visit Provider Nurse Practitioner
DX: R60.0 Localized edema (principal)
CPT/HCPCS: 36415; 80053; 81001; 84550; 85025; 85652; 87086

== ENCOUNTER 2024-05-23 07:17 | Outpatient (OUT) | payer BC, SELFPAY ==
--- OUTSIDE RECORDS SUMMARY | 2024-05-23 07:22 | XMS_ITS | CCD ---
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 Name Role Phone Supriya Brown Unavailable AICHTHERON, RADHA SHAISTA Primary Care Unavailable MARKER ., DR KELLER Attending Unavailable MARKER ., DR KELLER Admitting Unavailable AICHHOLLorna, RADHA SHAISTA Primary Care Unavailable CHRISTINA STEVENS Consulting Unavailable JENIFER ., MERI Attending Unavailable JENIFER ., MERI Admitting Unavailable SKYE WOODS Consulting Unavailable CHERI .CATRACHITO Consulting Unavailable AICHOLZ, RETAIL SELLING FLOOR LEADER SHAISTA Primary Care Unavailable CHRISTINA STEVENS Attending Unavailable CHRISTINA STEVENS Admitting Unavailable LORI RODRIGUEZ Consulting Unavailable AICHHOLZ, RETAIL SELLING FLOOR LEADER SHAISTA Primary Care Unavailable MIKKI .VASILE Attending Unavailable MIKKI ., VASILE Consulting Unavailable MIKKI ., VASILE Admitting Unavailable LORI DOWNEY Consulting Unavailable MERI SIMPSON Consulting Unavailable Shaista Corona J Primary Care Provider [phone] MD Isai Derek Admit Provider MD Sanjay Holt Other Provider MD Reginald Arroyo Other Provider [phone] MD Rubi Ramos Attending Provider MARLO Silva Emergency Provider MARLO Gay Attending Provider Ismael Huitron Unavailable Shaista Corona Primary Care Provider [phone] DARLINE Garcia Emergency Provider [phone] Ej Garcia Attending Unavailable Ej Garcia Admitting Unavailable Aichholz, Shaista J Primary Care Unavailable Aichholz, Shaista J Primary Care Unavailable Deidra, Evi Attending Unavailable Deidra, Evi Admitting Unavailable Sanjay Holt Consulting Unavailable Derek Alex Admitting Unavailable Rubi Ramos Attending Unavailable Aichholz, Shaista J Primary Care Unavailable Reginald Arroyo Consulting Unavaila Lisha Herr Attending Unavailable Lisha Silva Admitting Unavailable Aichhollorna, Shaista J Primary Care Unavailable Gregg PATTEN Attending Unavailable Sagar Orta Attending Unavailable Gregg PATTEN Attending Unavailable Cj HILTON, Shaista Unavailable Celestino Cooper MD Primary Care Provider [phone] THERESAZ, SHAISTA Attending Unavailable AICHHOLZ, SHAISTA Attending Unavailable AICHHOLZ, SHAISTA Attending Unavailable AICHHOLZ, SHAISTA Attending Unavailable AICHHOLZ, SHAISTA Attending Unavailable Allergies Allergy Classification Reported Allergen(s) Allergy Type Date of Onset Reaction(s) Facility (1 source) Azithromycin Drug Allergy Unknown [facility] Other (3 sources) Penicillin; Translations: [penicillin] Drug Allergy Unknown [facility] Repository (1 source) Azithromycin Drug Allergy [facility] Repository (5 sources) Erythromycin Drug Allergy 3 Rash [facility] Repository (1 source) E.E.S. Drug allergy (disorder) 3 [facility] Repository (9 sources) Penicillins; Translations: [Penicillins] Allergy to substance 3 [facility] (5 sources) Erythromycin Drug Allergy 4 rash, Unknown [facility] Healthcare (1 source) erythromycin base Drug allergy (disorder) 4 [facility] Repository Medications Current Medications Medication Drug Class(es) Dates Sig (Normalized) Sig (Original) [id number] 200 actuat albuterol 0.09 mg/actuat metered dose inhaler (2 sources) beta2-Adrenergic Agonist Start: 07-07-2022 take 2 puff(s) by inhalation every four hours as needed Albuterol Sulfate HFA 108 (90 Base) MCG/ACT 2 puffs as needed Inhalation every 4 hrs Jun, Active amLODIPine 10 mg oral tablet (10 sources) Dihydropyridine Calcium Channel Sarika Start: 02-29-2024 End: 05-29-2024 take 1 tablet by mouth once daily amLODIPine (Norvasc) 10 MG tablet Indications: Primary hypertension (CMS/HCC) , Essential (primary) hypertension (CMS/HCC) Take 1 tablet (10 mg) by mouth Daily 90 tablet 1 02/29/2024 05/29/2024 Active Start: 11-05-2022 take 10 mg by mouth once daily Amlodipine Active 10 MG PO Daily November 04, 2022 11:00pm amLODIPine Besyl ate Active buprenorphine 8 mg / naloxone 2 mg sublingual film (8 sources) Partial Opioid Agonist, Opioid Antagonist Start: 05-25-2023 Buprenorphine HCl-Naloxone HCl (Suboxone) 8-2 MG SL film dissolve 1/3 to 1/2 FILM under the tongue once daily if needed *MUST LAST 28 DAYS 05/25/2023 Active Start: 11-05-2022 Buprenorphine- Naloxone Active 0.5 FILM SUBLINGUAL Q24H November 04, 2022 11:00pm Start: 11-05-2022 Buprenorphine- Naloxone Active 0.5 FILM SUBLINGUAL Twice daily November 05, 2022 12:00am Buprenorphine HCl-Naloxone HCl (2 sources) Buprenorphine HCl-Naloxone HCl Active carvedilol 25 mg oral tablet (14 sources) alpha-Adrenergic Sarika, beta-Adrenergic Sarika Start: End: take 1 tablet by mouth in the morning carvedilol (Coreg) 25 MG tablet Indications: Primary hypertension (CMS/HCC) Take 1 tablet (25 mg) by mouth in the morning and 1 tablet (25 mg) before bedtime. 180 tablet 1 02/29/2024 05/29/2024 Active Start: 11-05-2022 End: 11-21-2022 take 25 mg by mouth twice daily Carvedilol Active 25 M G PO Twice daily 60 November 21, 2022 10:50am Carvedilol Activ e dextromethorphan hydrobromide 3 mg/ml / promethazine hydrochloride 1.25 mg/ml oral solution (1 source) Phenothiazine, Uncompetitive U-spftor-Y-aspartate Receptor Antagonist, Sigma-1 Agonist Start: 07-31-2023 take 1 mL by mouth every six hours Promethazine-Dm Active 5 ML PO Q6H 118 July 31, 2023 12:00am diclofenac sodium 50 mg delayed release oral tablet (10 sources) Nonsteroidal Anti-inflammatory Drug Start: 02-29-2024 End: 05-29-2024 take 1 tablet by mouth in the morning, then take 1 tablet by mouth in the evening, then take 1 tablet by mouth at bedtime diclofenac (Voltaren) 50 MG EC tablet Indications: Bilateral chronic knee pain Take 1 tablet (50 mg) by mouth in the morning and 1 tablet (50 mg) in the evening and 1 tablet (50 mg) before bedtime. 270 tablet 1 02/29/2024 05/29/2024 Active Start: 11-05-2022 take 50 mg by mouth [...] Jun, Active FLUoxetine 20 mg oral capsule (14 sources) Serotonin Reuptake Inhibitor Start: 02-29-2024 FLUoxetine (PROzac) 20 MG capsule Indications: Anxiety , Anxiety disorder, unspecified Total of 3 pills daily to =60mgTotal of 3 pills daily to =60mg 270 capsule 1 02/29/2024 Active Start: 11-05-2022 take 20 mg by mouth once daily Fluoxetine Active 20 MG PO Daily November 04, 2022 11:00pm Start: 11-05-2022 take 40 mg by mouth at bedtime Fluoxetine Active 40 MG PO Bedtime November 04, 2022 11:00pm Fluoxetine Activ e furosemide 20 mg oral tablet (3 sources) Loop Diuretic Start: 05-02-2024 End: 06-01-2024 take 1 tablet by mouth once daily furosemide (Lasix) 20 MG tablet Indications: Bilateral leg edema Take 1 tablet (20 mg) by mouth Daily 30 tablet 05/02/2024 06/01/2024 Active lisinopril 40 mg oral tablet (14 sources) Angiotensin Converting Enzyme Inhibitor Start: 02-29-2024 End: 05-29-2024 take 1 tablet by mouth once daily lisinopril 40 MG tablet Indications: Primary hypertension (CMS/HCC) Take 1 tablet (40 mg) by mouth Daily 90 tablet 1 02/29/2024 05/29/2024 Active Start: 11-21-2022 take 20 mg by mouth [...] Twice daily 10 July 31, 2023 12:00am pramipexole dihydrochloride 0.5 mg oral tablet (4 sources) Nonergot Dopamine Agonist Start: 02-29-2024 End: 05-29-2024 pramipexole (Mirapex) 0.5 MG tablet Indications: Muscle spasms of both lower extremities Take 1 tablet (0.5 mg) by mouth as needed at bedtime (RLS) 90 tablet 1 02/29/2024 05/29/2024 Active tiZANidine 4 mg oral tablet (12 sources) Central alpha-2 Adrenergic Agonist Start: 02-29-2024 End: 05-29-2024 tiZANidine (Zanaflex) 4 MG tablet Indications: Muscle spasms of both lower extremities Take 2 tablets (8 mg) by mouth every 12 (twelve) hours if needed for muscle spasms 360 tablet 1 02/29/2024 05/29/2024 Active Start: 11-16-2022 take 8 mg by mouth o nce daily at bedtime Tizanidine Active 8 MG [...] 20, 2022 11:00pm July 31, 2023 7:39pm tamsulosin hydrochloride 0.4 mg oral capsule (4 sources) alpha-Adrenergic Sarika Start: 02-29-2024 End: 05-29-2024 take 1 capsule by mouth every twenty-four hours at bedtime tamsulosin (Flomax) 0.4 MG 24 hr capsule Indications: Benign prostatic hyperplasia with weak urinary stream Take 1 capsule (0.4 mg) by mouth at bedtime 90 capsule 1 02/29/2024 05/02/2024 Discontinued (Therapy completed) Problems Active Problems Problem Classification Problem Date Documented Date Episodic/Chronic Anxiety disorders (5 sources) Anxiety disorder, unspecified; Translations: [Anxiety] Onset: 08-29-2022 08-30-2023 Chronic Chronic obstructive pulmonary disease and bronchiectasis (1 source) Chronic obstructive pulmonary disease, unspecified; Translations: [COPD UNSPECIFIED] Onset: 08-29-2022 Chronic Chronic obstructive pulmonary disease and bronchiectasis (1 source) Bronchitis, not specified as acute or chronic Episodic Essential hypertension (14 sources) Hypertensive disorder; Translations: [Essential (primary) hypertension] Onset: 11-05-2022 11-05-2022 Chronic Hyperplasia of prostate (7 sources) Benign prostatic hyperplasia without lower urinary tract symptoms; Translations: [Weak urinary stream due to benign prostatic hypertrophy] Onset: 08-29-2022 08-30-2023 Chronic Immunizations and screening for infectious disease (2 sources) Contact with and (suspected) exposure to other viral communicable diseases; Translations: [Contact with and (suspected) exposure to other viral communicable diseases] Episodic Influenza (1 source) Influenza due to Influenza A virus; Translations: [Influenza due to other identified influenza virus with other respiratory manifestations] 07-31-2023 Episodic Osteoarthritis (13 sources) Bilateral primary osteoarthritis of knee; Translations: [Arthritis] Onset: 03-16-2022 11-05-2022 Chronic Other aftercare (1 source) Other assisted (current) drug therapy; Translations: [OTH 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 CURRENT DRUG THERAPY] Onset: 08-29-2022 Episodic Other lower respiratory disease (1 source) Personal history of other diseases of the respiratory system Episodic Other nervous system disorders (4 sources) Chronic pain; Translations: [Other chronic pain] Onset: 08-30-2023 08-30-2023 Chronic Other non-traumatic joint disorders (4 sources) Hip pain; Translations: [Pain in left hip] Onset: 02-29-2024 02-29-2024 Episodic Other upper respiratory infections (1 source) [...] CARRIED OUT PT LEAVE] Onset: 11-03-2022 Episodic Residual codes; unclassified (6 sources) Tobacco user; Translations: [Tobacco use] Onset: 08-30-2023 08-30-2023 Episodic Residual codes; unclassified (5 sources) Bilateral lower limb edema; Translations: [Localized edema] Onset: 05-02-2024 05-02-2024 Episodic Spondylosis; intervertebral disc disorders; other back problems (4 sources) Degeneration of lumbar intervertebral disc; Translations: [DDD (degenerative disc disease), lumbar] Onset: 08-30-2023 08-30-2023 Chronic Substance-related disorders (20 sources) Nicotine dependence, cigarettes, uncomplicated; Translations: [Nicotine [...] [Fever, unspecified] Onset: 11-05-2022 11-10-2022 Episodic Lymphadenitis (12 sources) Hilar lymphadenopathy ; Translations: [Localized enlarged lymph nodes] Onset: 11-05-2022 Resolved: 08-30-2023 11-05-2022 Episodic Malaise and fatigue (4 sources) Fatigue; Translations: [Other fatigue] Onset: 08-30-2023 08-30-2023 Episodic Other connective tissue disease (4 sources) Pain in left leg; Translations: [PAIN IN LEFT LEG] Onset: 03-12-2022 Episodic Other connective tissue disease (4 sources) Spasm; Translations: [Other muscle spasm] Onset: 08-30-2023 08-30-2023 Episodic Other connective tissue disease (4 sources) Pain in bilateral legs; Translations: [Pain in right leg] Onset: 08-30-2023 08-30-2023 Episodic Other connective tissue disease (4 sources) Pain of left lower leg; Translations: [Pain in left lower leg] Onset: 10-31-2023 10-31-2023 Episodic Other ear and sense organ disorders (4 sources) Bilateral tinnitus; Translations: [Tinnitus, bilateral] Onset: 08-30-2023 08-30-2023 Episodic Other non-traumatic joint disorders (4 sources) Pain in right knee; Translations: [Pain in joint, lower leg] Onset: 08-30-2023 08-30-2023 Episodic Other non-traumatic joint disorders (4 sources) Pain in right shoulder; Translations: [Pain in joint, shoulder region] Onset: 08-30-2023 08-30-2023 Episodic Other nutritional; endocrine; and metabolic disorders (4 sources) Overweight in adulthood with body mass index of 25 or more but less than 30; Translations: [Body mass index (BMI) 25.0-25.9, adult] Onset: 08-30-2023 08-30-2023 Episodic Other screening for suspected conditions (not mental disorders or infectious disease) (4 sources) Patient encounter status; Translations: [Encounter for screening for malignant neoplasm of prostate] Onset: 08-30-2023 08-30-2023 Episodic Pleurisy; pneumothorax; pulmonary collapse (20 sources) Tension pneumothorax; Translations: [Spontaneous tension pneumothorax] Onset: 11-05-2022 Resolved: 08-30-2023 11-08-2022 Episodic Pneumonia (except that caused by tuberculosis or sexually transmitted disease) (13 sources) Community acquired pneumonia; Translations: [Pneumonia, unspecified organism] Onset: 12-26-2022 Resolved: 08-30-2023 11-05-2022 Episodic Residual codes; unclassified (4 sources) FH: premature coronary heart disease; Translations: [Family history of ischemic heart disease and other diseases of the circulatory system] Onset: 08-30-2023 02-29-2024 Episodic Respiratory failure; insufficiency; arrest (adult) (8 sources) Acute hypoxemic respiratory failure; Translations: [Acute respiratory failure with hypoxia] Onset: 11-05-2022 11-05-2022 Episodic Spondylosis; intervertebral disc disorders; other back problems (15 sources) Backache; Translations: [Dorsalgia, unspecified] Onset: 08-30-2023 12-08-2022 Episodic Unclassified (1 source) COUGH, UNSPECIFIED; Translations: [COUGH, UNSPECIFIED] Onset: 08-27-2022 Viral infection (8 sources) Parainfluenza; Translations: [Other viral infections of unspecified site] Onset: 11-05-2022 11-06-2022 Episodic Viral infection (1 source) COVID-19 Results Test Name Value Interpretation Reference Range Facility ALL CBC WITH AUTO DIFFon BASOPHILS ABSOLUTE AUTO 0.1 [facility] Basophils/100 WBC (Bld) 1.1 % 0.2 - 2.0 % [facility] Eosinophils/100 WBC (Bld) 6.9 % 0.9 - 7.0 % [facility] Erythrocyte distribution width (RBC) [Ratio] 13 % 11.0 - 15.0 % [facility] Hematocrit (Bld) [Volume fraction] 39.5 % Low 42.0 - 54.0 % [facility] Hemoglobin (Bld) [Mass/Vol] 13 g/dL Low 14.0 - 18.0 g/dL [facility] IMMATURE GRANULOCYTES ABS AUTO 0.01 [facility] Immature granulocytes/100 WBC (Bld) 0.1 % 0.0 - 0.5 % [facility] Interpretation and review of laboratory results Abnormal [facility] LYMPHOCYTES ABSOLUTE AUTO 3.4 [facility] Lymphocytes/100 WBC (Bld) 43.6 % 20.5 - 60.0 % [facility] MCH (RBC) [Entitic mass] 30.4 pg 25.9 - 34.0 pg [facility] MCHC (RBC) [Mass/Vol] 32.9 g/dL 29.9 - 35.2 g/dL [facility] MCV (RBC) [Entitic vol] 92.3 fL 80.0 - 94.0 fL [facility] MONOCYTES ABSOLUTE AUTO 0.7 [facility] Monocytes/100 WBC (Bld) 8.7 % 1.7 - 12.0 % [facility] NEUTROPHILS ABSOLUTE AUTO 3.1 [facility] Neutrophils/100 WBC (Bld) 39.6 % Low 43.0 - 75.0 % [facility] Platelet mean volume (Bld) [Entitic vol] 9.7 fL 9.5 - 13.5 fL [facility] TBH EO # 0.5 [facility] TB PLT 289 [facility] RBC 4.28 Low [facility] WBC 7.8 [facility] In office Testingon 12-01-19 24 In office Testing [id number]#1.00TIFF Normal [facility] Registrationon 11-30-2023 Registration [id number]#1.00TIFF Normal [facility] COVID CepheidOrdered By: Aaimr Garcia on 07-31-2023 SARS-CoV-2 (COVID-19) Ab IA Ql Negative Negative [facility] Comment on above: This is a duplicate CepheAffinegy Xpert Xpress CoV-2/Flu/RSV Plus RNA by RT-PCR result to be used for statistical tracking purpose only. SARS-CoV-2 (COVID-19) RNA ROWENA+probe Ql (Unsp spec) [facility] COVID-19 / Flu A/B / RSV PCR on 07-31-2023 SARS-CoV-2 (COVID-19) RNA ROWENA+probe Ql (Unsp spec) Normal [facility] Comment on above: Performed By: #### C OVID19 FLU RSV, CEPHEID NEG ####[facility] [id number] [place] [address] [facility] Cepheid COVID PCR Negativeon 07-31-2023 SARS-CoV-2 (COVID-19) RNA ROWENA+probe Ql (Unsp spec) Negative Normal Negative [facility] Comment on above: Result Comment: This is a duplicate Cepheid Xpert Xpress CoV-2/Flu/RSV Plus RNA by RT-PCR result to be used for statistical tracking purpose only.PERFORMED BY:[address] [place], [place] [phone] MEDICAL DIRECTORNATI LAUREN M.D. Performed By: #### C OVID19 FLU RSV, CEPHEID NEG ####[facility] [place] [address] [facility] Consenton 05-23-2023 Consent [id number]#1.00TIFF Normal [facility] Registrationon 05-23-2023 Registration [id number]#1.00TIFF Normal [facility] XR chest 2V*on 12-26-2022 XR chest 2V* Normal [facility] Activated partial thrombopla stin time (aPTT) in platelet poor plasma by coagulation aOrdered By: Lisha Silva on 12-08-2022 aPTT Coag (PPP) [Time] 23.5 s 25.1-36.5 [facility] Automated erythrocytes count in urine sediment (number/area)Ordered By: Lisha Silva on 12-08-2022 RBC Auto (Urine sed) [#/Area] 1-2 [HPF] 0-4 [facility] Automated leukocytes count i n urine sediment (number/area)Ordered By: Lisha Silva on 12-08-2022 WBC Auto (Urine sed) [#/Area] None seen [HPF] 0-4 [facility] B-Type Natriuretic Peptideon 12-08-2022 Natriuretic peptide B (Bld) [Mass/Vol] 22.0 pg/mL Normal 5-100 [facility] Comment on above: Result Comment: PERF ORMED BY:[address] [place], [place] [phone] MEDICAL DIRECTORNATI LAUREN M.D. Performed By: #### H S TROP, CBC, BMP, BNP, DDIMER, PT, PTT ####[address] [place] [address] [facility] Basic Metabolic Panelon Anion gap [Moles/Vol] 10.9 mmol/L Normal 6.0-15.0 [facility] Comment on above: Performed By: #### H S TROP, CBC, BMP, BNP, DDIMER, PT, PTT ####[address] [address] [facility] Calcium [Mass/Vol] 8.6 mg/dL Normal 8.6-10.3 [facility] Comment on above: Performed By: #### H S TROP, CBC, BMP, BNP, DDIMER, PT, PTT ####[address] [address] [facility] Chloride [Moles/Vol] 105 mmol/L Normal 98-107 [facility] Comment on above: Performed By: #### H S TROP, CBC, BMP, BNP, DDIMER, PT, PTT ####[address] [address] [facility] CO2 [Moles/Vol] 28.0 mmol/L Normal 21.0-31.0 [facility] Comment on above: Performed By: #### H S TROP, CBC, BMP, BNP, DDIMER, PT, PTT ####[address] [address] [facility] Creatinine [Mass/Vol] 0.53 mg/dL Low 0.70-1.30 [facility] Comment on above: Performed By: #### H S TROP, CBC, BMP, BNP, DDIMER, PT, PTT ####[address] [place] [id number] [facility] Creatinine Clr Calc Pharmacy 188.22 [facility] Comment on above: Result Comment: PERF ORMED BY:[address] [place], [place] [phone] MEDICAL DIRECTORNATI LAUREN M.D. Performed By: #### H S TROP, CBC, BMP, BNP, DDIMER, PT, PTT ####[address] GFR/1.73 sq M.predicted MDRD (S/P/Bld) [Vol rate/Area] mL/min/{1.73_m2} [facility] Comment on above: Performed By: #### H S TROP, CBC, BMP, BNP, DDIMER, PT, PTT ####[id number] [facility] Glucose [Mass/Vol] 99 mg/dL Normal 70-100 [facility] Comment on above: Result Comment: [facility] Glucose Reference Range is dependent on time and content of last meal. Glucose of more than 200 mg/dL in a nonstressed, ambulatory subject supports the diagnosis of Diabetes Mellitus. ADA recommended reference range Performed By: #### H S TROP, CBC, BMP, BNP, DDIMER, PT, PTT ####[place] [id number] [facility] Potassium [Moles/Vol] 3.9 mmol/L Normal 3.5-5.1 [facility] Comment on above: Performed By: #### H S TROP, CBC, BMP, BNP, DDIMER, PT, PTT ####[place] [id number] [facility] Sodium [Moles/Vol] 140 mmol/L Normal 136-145 [facility] Comment on above: Performed By: #### H S TROP, CBC, BMP, BNP, DDIMER, PT, PTT ####[address] [place] [address] [facility] Urea nitrogen [Mass/Vol] 11 mg/dL Normal 7-25 [facility] Comment on above: Performed By: #### H S TROP, CBC, BMP, BNP, DDIMER, PT, PTT ####[facility] [address] [place] [address] [facility] Basophils Auto (Bld) [#/Vol] Ordered By: Lisha Silva on 12-08-2022 Basophils (Bld) [#/Vol] 0.2 10*3/uL 0.0-0.2 [facility] Basophils/100 WBC Auto (Bld) Ordered By: Lisha Silva on 12-08-2022 Basophils/100 WBC (Bld) 2.6 % . [facility] Bilirubin Test strip Ql (U)O rdered By: Lisha Silva on 12-08-2022 Bilirubin Ql (U) Negative Negative [facility] CT angio chest PE protocolon 12-08-2022 CT angio chest PE protocol Normal [facility] Calcium [Mass/volume] in Ser um or PlasmaOrdered By: Lisha Silva on 12-08-2022 Calcium [Mass/Vol] 8.6 mg/dL 8.6-10.3 [facility] Carbon dioxide, total [Moles /volume] in Serum or PlasmaOrdered By: Lisha Silva on 12-08-2022 CO2 [Moles/Vol] 28.0 mmol/L 21.0-31.0 [facility] Chloride [Moles/volume] in S thang or PlasmaOrdered By: Lisha Silva on 12-08-2022 Chloride [Moles/Vol] 105 mmol/L 98-107 [facility] Color Auto (U)Ordered By: Khadijah Silva on 12-08-2022 Color (U) Yellow Yellow [facility] Complete Blood Count Auto Di ffon 12-08-2022 Basophils (Bld) [#/Vol] 0.2 10*3/uL Normal 0.0-0.2 [facility] Comment on above: Result Comment: PERF ORMED BY:[facility] [place], [place] [phone] MEDICAL DIRECTORNATI LAUREN M.D. Performed By: #### H S TROP, CBC, BMP, BNP, DDIMER, PT, PTT ####[address] Basophils/100 WBC (Bld) 2.6 % Normal . [facility] Comment on above: Performed By: #### H S TROP, CBC, BMP, BNP, DDIMER, PT, PTT ####[address] Eosinophils (Bld) [#/Vol] 0.3 10*3/uL Normal 0.0-0.45 [facility] Comment on above: Performed By: #### H S TROP, CBC, BMP, BNP, DDIMER, PT, PTT ####[address] Eosinophils/100 WBC (Bld) 3.8 % Normal . [facility] Comment on above: Performed By: #### H S TROP, CBC, BMP, BNP, DDIMER, PT, PTT ####[address] Erythrocyte distribution width (RBC) [Ratio] 14.8 % Normal 12.0-14.8 [facility] Comment on above: Performed By: #### H S TROP, CBC, BMP, BNP, DDIMER, PT, PTT ####[address] Hematocrit (Bld) [Volume fraction] 35.8 % Low 38.8-50.0 [facility] Comment on above: Performed By: #### H S TROP, CBC, BMP, BNP, DDIMER, PT, PTT ####[address] Hemoglobin (Bld) [Mass/Vol] 12.0 g/dL Low 13.0-17.0 [facility] Comment on above: Performed By: #### H S TROP, CBC, BMP, BNP, DDIMER, PT, PTT ####[address] Lymphocytes (Bld) [#/Vol] 3.7 10*3/uL Normal 1.00-4.8 [facility] Comment on above: Performed By: #### H S TROP, CBC, BMP, BNP, DDIMER, PT, PTT ####[address] Lymphocytes/100 WBC (Bld) 48.0 % Normal . [facility] - [place] Comment on above: Performed By: #### H S TROP, CBC, BMP, BNP, DDIMER, PT, PTT ####[address] MCH (RBC) [Entitic mass] 30.4 pg Normal 27.5-35.2 [facility] [place] Comment on above: Performed By: #### H S TROP, CBC, BMP, BNP, DDIMER, PT, PTT ####[address] MCV (RBC) [Entitic vol] 90.4 fL Normal 83.5-101 [facility] [place] Comment on above: Performed By: #### H S TROP, CBC, BMP, BNP, DDIMER, PT, PTT ####[address] Mean Corpuscular HGB Conc 33.6 g/dL Normal 32.5-35.6 [facility] [place] Comment on above: Performed By: #### H S TROP, CBC, BMP, BNP, DDIMER, PT, PTT ####[address] Monocytes (Bld) [#/Vol] 0.7 10*3/uL Normal 0.0-0.8 [facility] [place] Comment on above: Performed By: #### H S TROP, CBC, BMP, BNP, DDIMER, PT, PTT ####[address] Monocytes/100 WBC (Bld) 21.84 % High 0.00-20.00 [facility] [place] Comment on above: Result Comment: For adults in ED, MDW > 20.0 may be associated with a higher risk of sepsis during the first 12 hrs of hospital admission Performed By: #### H S TROP, CBC, BMP, BNP, DDIMER, PT, PTT ####[address] Monocytes/100 WBC (Bld) 9.6 % Normal . [facility] [place] Comment on above: Performed By: #### H S TROP, CBC, BMP, BNP, DDIMER, PT, PTT ####[address] Neutrophils (Bld) [#/Vol] 2.7 10*3/uL Normal 1.8-7.7 [facility] [place] Comment on above: Performed By: #### H S TROP, CBC, BMP, BNP, DDIMER, PT, PTT ####[address] Neutrophils/100 WBC (Bld) 36.0 % Normal . [facility] [place] Comment on above: Performed By: #### H S TROP, CBC, BMP, BNP, DDIMER, PT, PTT ####[address] NRBC% 0.1 /100{WBC} Normal 0-0.5 [facility] [place] Comment on above: Performed By: #### H S TROP, CBC, BMP, BNP, DDIMER, PT, PTT ####[address] Platelet mean volume (Bld) [Entitic vol] 7.6 fL Normal 6.6-10.1 [facility] [place] Comment on above: Performed By: #### H S TROP, CBC, BMP, BNP, DDIMER, PT, PTT ####[address] Platelets (Bld) [#/Vol] 299 10*3/uL Normal 150-450 [facility] [place] Comment on above: Performed By: #### H S TROP, CBC, BMP, BNP, DDIMER, PT, PTT ####[address] [place] [address] [facility] RBC (Bld) [#/Vol] 3.96 10*6/uL Normal 3.90-5.60 [facility] Comment on above: Performed By: #### H S TROP, CBC, BMP, BNP, DDIMER, PT, PTT ####[address] [place] [address] [facility] WBC (Bld) [#/Vol] 7.6 10*3/uL Normal 4.1-10.5 [facility] Comment on above: Performed By: #### H S TROP, CBC, BMP, BNP, DDIMER, PT, PTT ####[address] [address] [facility] Creatinine [Mass/volume] in Serum or PlasmaOrdered By: Lisha Silva on 12-08-2022 Creatinine [Mass/Vol] 0.53 mg/dL 0.70-1.30 [facility] D-Dimer High Sensitivityon 0 12-08-2022 D-Dimer High Sensitivity 435 ng/mL High 0-243 [facility] [place] Comment on above: Result Comment: The reference [...] in hospitalized patients due to co-morbid conditions.PERFORMED BY:[address] [place], [place] [phone] MEDICAL DIRECTORNATI LAUREN M.D. Performed By: #### H S TROP, CBC, BMP, BNP, DDIMER, PT, PTT ####[address] [place] [address] [facility] Dipstick and Microscopicon 0 12-08-2022 Appearance (U) Clear Normal Clear [facility] Comment on above: Order Comment: Name Collection Type:: Clean-Voided Midstream Performed By: #### A DDONUAPLUS ####[address] [address] [facility] Bacteria,Urine None Seen Normal None Seen [facility] Comment on above: Order Comment: Name Collection Type:: Clean-Voided Midstream Performed By: #### A DDONUAPLUS ####[address] [address] [facility] Bilirubin,Urine Negative Normal Negative [facility] Comment on above: Order Comment: Name Collection Type:: Clean-Voided Midstream Performed By: #### A DDONUAPLUS ####[address] [address] [facility] Color (U) Yellow Normal Yellow [facility] [place] Comment on above: Order Comment: Name Collection Type:: Clean-Voided Midstream Performed By: #### A DDONUAPLUS ####[address] [address] [facility] Glucose Ql (U) Normal Normal Normal [facility] [place] Comment on above: Order Comment: Name Collection Type:: Clean-Voided Midstream Performed By: #### A DDONUAPLUS ####[address] [address] [facility] Hyaline Casts,Urine 0-8 Normal 0-8 [facility] Comment on above: Order Comment: Name Collection Type:: Clean-Voided Midstream Result Comment: PERF ORMED BY:[address] [place], [place] [id number] MEDICAL ALEKSANDAR LAUREN M.D. Performed By: #### A DDONUAPLUS ####[address] [address] [facility] Ketones Ql (U) Negative Normal Negative [facility] [place] Comment on above: Order Comment: Name Collection Type:: Clean-Voided Midstream Performed By: #### A DDONUAPLUS ####[address] [address] [facility] Leukocyte esterase Test strip Ql (U) Negative Normal Negative [facility] [place] Comment on above: Order Comment: Name Collection Type:: Clean-Voided Midstream Performed By: #### A DDONUAPLUS ####[address] [address] [facility] Nitrite,Urine Negative Normal Negative [facility] [place] Comment on above: Order Comment: Name Collection Type:: Clean-Voided Midstream Performed By: #### A DDONUAPLUS ####[address] [address] [facility] Occult Blood,Urine Trace High Negative [facility] Comment on above: Order Comment: Name Collection Type:: Clean-Voided Midstream Result Comment: PERF ORMED BY:[address] [place], [place] [phone] MEDICAL DIRECTORNATI LAUREN M.D. Performed By: #### A DDONUAPLUS ####[address] [address] [facility] pH (U) 6.5 [pH] Normal 5.0-9.0 [facility] [place] Comment on above: Order Comment: Name Collection Type:: Clean-Voided Midstream Performed By: #### A DDONUAPLUS ####[address] [address] [facility] Protein,Urine Negative Normal Negative [facility] Comment on above: Order Comment: Name Collection Type:: Clean-Voided Midstream Performed By: #### A DDONUAPLUS ####[address] [address] [facility] RBC,Urine 1-2 Normal 0-4 [facility] Comment on above: Order Comment: Name Collection Type:: Clean-Voided Midstream Performed By: #### A DDONUAPLUS ####[id number] [facility] Specificy [place],Urine 1.040 High 1.001-1.03 0 [facility] Comment on above: Order Comment: Name Collection Type:: Clean-Voided Midstream Performed By: #### A DDONUAPLUS ####[address] [address] [place] [address] [facility] Squamous Epithelial Cell,Urine None Seen Normal 0-2 [facility] [place] Comment on above: Order Comment: Name Collection Type:: Clean-Voided Midstream Performed By: #### A DDONUAPLUS ####[facility] [address] [place] [address] [facility] Urobilinogen,Urine Normal Normal Normal [facility] Comment on above: Order Comment: Name Collection Type:: Clean-Voided Midstream Performed By: #### A DDONUAPLUS ####[facility] [place] [address] [facility] WBC,Urine None Seen Normal 0-4 [facility] Comment on above: Order Comment: Name Collection Type:: Clean-Voided Midstream Performed By: #### A DDONUAPLUS ####[address] [place] [address] [facility] ECG 12 lead ECGon 12-08-2022 ECG 12 lead ECG Normal [facility] Eosinophils Auto (Bld) [#/Vo l]Ordered By: Lisha Silva on 12-08-2022 Eosinophils (Bld) [#/Vol] 0.3 10*3/uL 0.0-0.45 [facility] Eosinophils/100 WBC Auto (Bl d)Ordered By: Lisha Silva on 12-08-2022 Eosinophils/100 WBC (Bld) 3.8 % . [facility] Erythrocyte distribution wid th Auto (RBC) [Ratio]Ordered By: Lisha Silva on 12-08-2022 Erythrocyte distribution width (RBC) [Ratio] 14.8 % 12.0-14.8 [facility] Glucose [Mass/volume] in Ser um or PlasmaOrdered By: Lisha Silva on 12-08-2022 Glucose [Mass/Vol] 99 mg/dL 70-100 [facility] Comment on above: ADA recommended refe rence rangeRandom Glucose Reference Range is dependent on time and content of last meal. Glucose of more than 200 mg/dL in a nonstressed, ambulatory subject supports the diagnosis of Diabetes Mellitus. Hematocrit Auto (Bld) [Volum e fraction]Ordered By: Lisha Silva on 12-08-2022 Hematocrit (Bld) [Volume fraction] 35.8 % 38.8-50.0 [facility] Hemoglobin [Mass/volume] in BloodOrdered By: Lisha Silva on 12-08-2022 Hemoglobin (Bld) [Mass/Vol] 12.0 g/dL 13.0-17.0 [facility] Ketones Auto test strip (U) [Mass/Vol]Ordered By: Lisha Silva on 12-08-2022 Ketones (U) [Mass/Vol] Negative [facility] - CoagulationOrde red By: Lisha Silva on 12-08-2022 PT Coag (PPP) [Time] 12.6 s 9.0-12.9 [facility] Laboratory - UrinalysisOrder ed By: Lisha Silva on 12-08-2022 Hyaline casts LM Ql (Urine sed) 0-8 [LPF] 0-8 [facility] Leukocytes [#/volume] correc wiliam for nucleated erythrocytes in Blood by Automated counOrdered By: Lisha Silva on 12-08-2022 WBC corrected for nucl RBC Auto (Bld) [#/Vol] 7.6 10*3/uL 4.1-10.5 [facility] Lymphocytes Auto (Bld) [#/Vo l]Ordered By: Lisha Silva on 12-08-2022 Lymphocytes (Bld) [#/Vol] 3.7 10*3/uL 1.00-4.8 [facility] Lymphocytes/100 WBC Auto (Bl d)Ordered By: Lisha Silva on 12-08-2022 Lymphocytes/100 WBC (Bld) 48.0 % . [facility] MCH Auto (RBC) [Entitic mass ]Ordered By: Lisha Silva on 12-08-2022 MCH (RBC) [Entitic mass] 30.4 pg 27.5-35.2 [facility] MCHC Auto (RBC) [Mass/Vol]Or dered By: Lisha Silva on 12-08-2022 MCHC (RBC) [Mass/Vol] 33.6 g/dL 32.5-35.6 [facility] MCV Auto (RBC) [Entitic vol] Ordered By: Lisha Silva on 12-08-2022 MCV (RBC) [Entitic vol] 90.4 fL 83.5-101 [facility] Monocyte distribution width [Entitic volume] in Blood by AutomatedOrdered By: Lisha Silva on 12-08-2022 Monocyte distribution width Auto (Bld) [Entitic vol] 21.84 % 0.00-20.00 [facility] Comment on above: For adults in ED, MD W > 20.0 may be associated with a higher risk of sepsis during the first 12 hrs of hospital admission Monocytes Auto (Bld) [#/Vol] Ordered By: Lisha Silva on 12-08-2022 Monocytes (Bld) [#/Vol] 0.7 10*3/uL 0.0-0.8 [facility] Monocytes/100 WBC Auto (Bld) Ordered By: Lisha Silva on 12-08-2022 Monocytes/100 WBC (Bld) 9.6 % . [facility] Natriuretic peptide B [Mass/ Vol]Ordered By: Lisha Silva on 12-08-2022 Natriuretic peptide B (Bld) [Mass/Vol] 22.0 pg/mL 5-100 [facility] [place] Neutrophils Auto (Bld) [#/Vo l]Ordered By: Lisha Silva on 12-08-2022 Neutrophils (Bld) [#/Vol] 2.7 10*3/uL 1.8-7.7 [facility] Neutrophils/100 WBC Auto (Bl d)Ordered By: Lisha Silva on 12-08-2022 Neutrophils/100 WBC (Bld) 36.0 % . [facility] Nitrite Test strip Ql (U)Ord ered By: Lisha Silva on 12-08-2022 Nitrite Ql (U) Negative Negative [facility] No Panel InformationOrdered By: Lisha Silva on 12-08-2022 D-Dimer Quantitative (PE/DVT) 435 ng/mL 0-243 [facility] Comment on above: The reference range for [...] conditions. Estimated GFR (CKD-EPI) > 60.0 mL/Min [facility] Creatinine Clearance (Chem 188.22 [facility] Nucleated erythrocytes [Pres ence] in Blood by Automated countOrdered By: Lisha Silva on 12-08-2022 Nucleated RBC Auto Ql (Bld) 0.1 /100{WBC} 0-0.5 [facility] Partial Thromboplastin Timeo n 12-08-2022 aPTT Coag (Bld) [Time] 23.5 s Low 25.1-36.5 [facility] Comment on above: Performed By: #### H S TROP, CBC, BMP, BNP, DDIMER, PT, PTT ####[facility] [id number] Platelet mean volume Auto (B ld) [Entitic vol]Ordered By: Lisha Silva on 12-08-2022 Platelet mean volume (Bld) [Entitic vol] 7.6 fL 6.6-10.1 [facility] [place] Platelet poor plasma interna tional normalized ratio (INR) by coagulation assay (relatOrdered By: Lisha Silva on 12-08-2022 INR Coag (PPP) [Relative time] 1.1 {INR} [facility] Comment on above: INR Therapeutic Rang e [...] 12-08-2022 Platelets (Bld) [#/Vol] 299 10*3/uL 150-450 [facility] Potassium [Moles/volume] in Serum or PlasmaOrdered By: Lisha Silva on 12-08-2022 Potassium [Moles/Vol] 3.9 mmol/L 3.5-5.1 [facility] Protein Auto test strip (U) [Mass/Vol]Ordered By: Lisha Silva on 12-08-2022 Protein (U) [Mass/Vol] Negative Negative [facility] Prothrombin Time INRon 12-08 INR Coag (PPP) [Relative time] 1.1 {INR} Normal [facility] Comment on above: Result Comment: INR Therapeutic [...] CBC, BMP, BNP, DDIMER, PT, PTT ####[facility] [id number] PT Coag (PPP) [Time] 12.6 s Normal 9.0-12.9 [facility] Comment on above: Performed By: #### H S TROP, CBC, BMP, BNP, DDIMER, PT, PTT ####[facility] [id number] RBC Auto (Bld) [#/Vol]Ordere d By: Lisha Silva on 12-08-2022 RBC (Bld) [#/Vol] 3.96 10*6/uL 3.90-5.60 [facility] Serum or plasma anion gap de terminationOrdered By: Lisha Silva on 12-08-2022 Anion gap [Moles/Vol] 10.9 mmol/L 6.0-15.0 [facility] Sodium [Moles/volume] in Ser um or PlasmaOrdered By: Lisha Silva on 12-08-2022 Sodium [Moles/Vol] 140 mmol/L 136-145 [facility] Specific gravity Auto test s trip (U) [Rel density]Ordered By: Lisha Silva on 12-08-2022 Specific gravity (U) [Rel density] 1.040 1.001-1.03 0 [facility] Squamous epithelial cells de tection in urine sediment by light microscopyOrdered By: Lisha Silva on 12-08-2022 Epithelial cells.squamous LM Ql (Urine sed) None seen [HPF] 0-2 [facility] Troponin I High Sensitivityo n 12-08-2022 Troponin I High Sensitivity 3.7 pg/mL Normal 0.0-20.0 [facility] Comment on above: Result Comment: PERF ORMED BY:[facility] [place], [place] [phone] MEDICAL DIRECTORNATI LAUREN M.D. Performed By: #### H S TROP, CBC, BMP, BNP, DDIMER, PT, PTT ####[facility] [address] [place] [address] [facility] Troponin I.cardiac [Mass/vol ume] in Serum or Plasma by Detection limit <= 0.01 ng/Ordered By: Lisha Silva on 12-08-2022 Troponin I.cardiac DL <= 0.01 ng/mL [Mass/Vol] 3.7 pg/mL 0.0-20.0 [facility] Urea nitrogen [Mass/volume] in Serum or PlasmaOrdered By: Lisha Silva on 12-08-2022 Urea nitrogen [Mass/Vol] 11 mg/dL 7-25 [facility] Urine bacteria detection by automated methodOrdered By: Lisha Silva on 12-08-2022 Bacteria Auto Ql (U) None seen None Seen [facility] Urine clarity by refractomet ry automatedOrdered By: Lisha Silva on 12-08-2022 Clarity Refractometry automated (U) Clear Clear [facility] Urine glucose measurement by automated test strip (mass/volume)Ordered By: Lisha Silva on 12-08-2022 Glucose Auto test strip (U) [Mass/Vol] Normal mg/dL Normal [facility] Urine hemoglobin detection b y automated test stripOrdered By: Lisha Silva on 12-08-2022 Hemoglobin Auto test strip Ql (U) Trace Negative [facility] Urine leukocyte esterase det ection by automated test stripOrdered By: Lisha Silva on 12-08-2022 Leukocyte esterase Auto test strip Ql (U) Negative Negative [facility] Urobilinogen Auto test strip (U) [Mass/Vol]Ordered By: Lisha Silva on 12-08-2022 Urobilinogen (U) [Mass/Vol] Normal mg/dL Normal [facility] WBC Auto (Bld) [#/Vol]Ordere d By: Lisha Silva on 12-08-2022 WBC (Bld) [#/Vol] 7.6 10*3/uL 4.1-10.5 [facility] pH Auto test strip (U)Ordere d By: Lisha Silva on 12-08-2022 pH (U) 6.5 [pH] 5.0-9.0 [facility] Alanine aminotransferase [En zymatic activity/volume] in Serum or PlasmaOrdered By: Shant Villegas on 11-21-2022 ALT [Catalytic activity/Vol] 40 U/L 7-52 [facility] Albumin [Mass/volume] in Ser um or Plasma by Bromocresol green (BCG) dye binding methoOrdered By: Shant Villegas on 11-21-2022 Albumin BCG dye [Mass/Vol] 2.3 g/dL 3.5-5.7 [facility] Alkaline phosphatase [Enzyma tic activity/volume] in Serum or PlasmaOrdered By: Shant Villegas on 11-21-2022 ALP [Catalytic activity/Vol] 110 U/L 34-104 [facility] Aspartate aminotransferase [ Enzymatic activity/volume] in Serum or PlasmaOrdered By: Shant Villegas on 11-21-2022 AST [Catalytic activity/Vol] 25 U/L 13-39 [facility] Basophils Auto (Bld) [#/Vol] Ordered By: Evi Gay on 11-21-2022 Basophils (Bld) [#/Vol] 0.1 10*3/uL 0.0-0.2 [facility] Basophils/100 WBC Auto (Bld) Ordered By: Evi Gay on 11-21-2022 Basophils/100 WBC (Bld) 1.4 % . [facility] Bilirubin.total [Mass/volume ] in Serum or PlasmaOrdered By: Shant Villegas on 11-21-2022 Bilirubin [Mass/Vol] 0.4 mg/dL 0.3-1.0 [facility] Calcium [Mass/volume] in Ser um or PlasmaOrdered By: Shant Villegas on 11-21-2022 Calcium [Mass/Vol] 8.1 mg/dL 8.6-10.3 [facility] Carbon dioxide, total [Moles /volume] in Serum or PlasmaOrdered By: Shant Villegas on 11-21-2022 CO2 [Moles/Vol] 31.0 mmol/L 21.0-31.0 [facility] Chloride [Moles/volume] in S thang or PlasmaOrdered By: Shant Villegas on 11-21-2022 Chloride [Moles/Vol] 105 mmol/L 98-107 [facility] Complete Blood Count Auto Di ffon 11-21-2022 Basophils (Bld) [#/Vol] 0.1 10*3/uL Normal 0.0-0.2 [facility] Comment on above: Result Comment: PERF ORMED BY:[address] [place], [place] [id number] MEDICAL DIRECTORNATI LAUREN M.D. Performed By: #### C BC ####[id number] [facility] Basophils/100 WBC (Bld) 1.4 % Normal . [facility] Comment on above: Performed By: #### C BC ####[id number] [facility] Eosinophils (Bld) [#/Vol] 0.3 10*3/uL Normal 0.0-0.45 [facility] Comment on above: Performed By: #### C BC ####[id number] [facility] Eosinophils/100 WBC (Bld) 3.7 % Normal . [facility] Comment on above: Performed By: #### C BC ####[address] Erythrocyte distribution width (RBC) [Ratio] 13.8 % Normal 12.0-14.8 [facility] Comment on above: Performed By: #### C BC ####[address] Hematocrit (Bld) [Volume fraction] 25.0 % Low 38.8-50.0 [facility] Comment on above: Performed By: #### C BC ####[address] Hemoglobin (Bld) [Mass/Vol] 8.4 g/dL Low 13.0-17.0 [facility] Comment on above: Performed By: #### C BC ####[address] Lymphocytes (Bld) [#/Vol] 2.2 10*3/uL Normal 1.00-4.8 [facility] Comment on above: Performed By: #### C BC ####[address] Lymphocytes/100 WBC (Bld) 28.3 % Normal . [facility] Comment on above: Performed By: #### C BC ####[address] MCH (RBC) [Entitic mass] 30.2 pg Normal 27.5-35.2 [facility] Comment on above: Performed By: #### C BC ####[address] MCV (RBC) [Entitic vol] 89.8 fL Normal 83.5-101 [facility] Comment on above: Performed By: #### C BC ####[address] Mean Corpuscular HGB Conc 33.6 g/dL Normal 32.5-35.6 [facility] Comment on above: Performed By: #### C BC ####[address] [place] [address] [facility] Monocytes (Bld) [#/Vol] 0.8 10*3/uL Normal 0.0-0.8 [facility] Comment on above: Performed By: #### C BC ####[address] [address] [facility] Monocytes/100 WBC (Bld) 10.5 % Normal . [facility] Comment on above: Performed By: #### C BC ####[address] [address] [facility] Neutrophils (Bld) [#/Vol] 4.4 10*3/uL Normal 1.8-7.7 [facility] Comment on above: Performed By: #### C BC ####[address] [address] [facility] Neutrophils/100 WBC (Bld) 56.1 % Normal . [facility] Comment on above: Performed By: #### C BC ####[address] [address] [facility] NRBC% 0.2 /100{WBC} Normal 0-0.5 [facility] Comment on above: Performed By: #### C BC ####[address] [address] [facility] Platelet mean volume (Bld) [Entitic vol] 7.2 fL Normal 6.6-10.1 [facility] Comment on above: Performed By: #### C BC ####[address] [address] [facility] Platelets (Bld) [#/Vol] 486 10*3/uL High 150-450 [facility] Comment on above: Performed By: #### C BC ####[address] [address] [facility] RBC (Bld) [#/Vol] 2.78 10*6/uL Low 3.90-5.60 [facility] Comment on above: Performed By: #### C BC ####[address] [place] [address] [facility] WBC (Bld) [#/Vol] 7.9 10*3/uL Normal 4.1-10.5 [facility] Comment on above: Performed By: #### C BC ####[address] [address] [facility] Comprehensive Metabolic Pane tiago 11-21-2022 Albumin [Mass/Vol] 2.3 g/dL Low 3.5-5.7 [facility] Comment on above: Performed By: #### C MP, MG ####[address] [address] [facility] Albumin/Globulin [Mass ratio] 0.7 {ratio} Normal [facility] Comment on above: Performed By: #### C MP, MG ####[address] [address] [facility] ALP [Catalytic activity/Vol] 110 U/L High 34-104 [facility] Comment on above: Performed By: #### C MP, MG ####[address] [address] [facility] ALT [Catalytic activity/Vol] 40 U/L Normal 7-52 [facility] Comment on above: Performed By: #### C MP, MG ####[address] [address] [facility] Anion gap [Moles/Vol] 8.7 mmol/L Normal 6.0-15.0 [facility] Comment on above: Performed By: #### C MP, MG ####[address] [address] [facility] AST [Catalytic activity/Vol] 25 U/L Normal 13-39 [facility] Comment on above: Performed By: #### C MP, MG ####[address] [address] [facility] Bilirubin [Mass/Vol] 0.4 mg/dL Normal 0.3-1.0 [facility] Comment on above: Performed By: #### C MP, MG ####[facility] [place] [address] [facility] Calcium [Mass/Vol] 8.1 mg/dL Low 8.6-10.3 [facility] Comment on above: Performed By: #### C MP, MG ####[address] [place] [address] [facility] Chloride [Moles/Vol] 105 mmol/L Normal 98-107 [facility] Comment on above: Performed By: #### C MP, MG ####[address] [place] [address] [facility] CO2 [Moles/Vol] 31.0 mmol/L Normal 21.0-31.0 [facility] Comment on above: Performed By: #### C MP, MG ####[address] [address] [facility] Creatinine [Mass/Vol] 0.43 mg/dL Low 0.70-1.30 [facility] Comment on above: Performed By: #### C MP, MG ####[address] [place] [address] [place] Creatinine Clr Calc Pharm[facility] 231.99 [facility] Comment on above: Performed By: #### C MP, MG ####[address] [place] [address] [place] GFR/1.73 sq M.predicted MDRD (S/P/Bld) [Vol rate/Area] mL/min/{1.73_m2} [facility] Comment on above: Performed By: #### C MP, MG ####[address] [place] [address] [place] Globulin (S) [Mass/Vol] 3.4 g/dL [facility] Comment on above: Performed By: #### C MP, MG ####[address] [place] [address] [facility] Glucose [Mass/Vol] 105 mg/dL High 70-100 [facility] Comment on above: Result Comment: [place] Glucose Reference Range is dependent on time and content of last meal. Glucose of more than 200 mg/dL in a nonstressed, ambulatory subject supports the diagnosis of Diabetes Mellitus. ADA recommended reference range Performed By: #### C MP, MG ####[address] Potassium [Moles/Vol] 3.7 mmol/L Normal 3.5-5.1 [facility] Comment on above: Performed By: #### C MP, MG ####[address] [place] [id number] [facility] Protein [Mass/Vol] 5.7 g/dL Low 6.4-8.9 [facility] Comment on above: Performed By: #### C MP, MG ####[address] [place] [id number] [facility] Sodium [Moles/Vol] 141 mmol/L Normal 136-145 [facility] Comment on above: Performed By: #### C MP, MG ####[id number] [facility] Urea nitrogen [Mass/Vol] 11 mg/dL Normal 7-25 [facility] Comment on above: Performed By: #### C MP, MG ####[id number] [facility] Creatinine [Mass/volume] in Serum or PlasmaOrdered By: Shant Villegas on 11-21-2022 Creatinine [Mass/Vol] 0.43 mg/dL 0.70-1.30 [facility] Eosinophils Auto (Bld) [#/Vo l]Ordered By: Evi Gay on 11-21-2022 Eosinophils (Bld) [#/Vol] 0.3 10*3/uL 0.0-0.45 [facility] Eosinophils/100 WBC Auto (Bl d)Ordered By: Evi Gay on 11-21-2022 Eosinophils/100 WBC (Bld) 3.7 % . [facility] Erythrocyte distribution wid th Auto (RBC) [Ratio]Ordered By: Evi Gay on 11-21-2022 Erythrocyte distribution width (RBC) [Ratio] 13.8 % 12.0-14.8 [facility] Globulin Calc (S) [Mass/Vol] Ordered By: Shant Villegas on 11-21-2022 Globulin (S) [Mass/Vol] 3.4 g/dL [facility] Glucose [Mass/volume] in Ser um or PlasmaOrdered By: Shant Villegas on 11-21-2022 Glucose [Mass/Vol] 105 mg/dL 70-100 [facility] Comment on above: ADA recommended refe rence rangeRandom Glucose Reference Range is dependent on time and content of last meal. Glucose of more than 200 mg/dL in a nonstressed, ambulatory subject supports the diagnosis of Diabetes Mellitus. Hematocrit Auto (Bld) [Volum e fraction]Ordered By: Evi Gay on 11-21-2022 Hematocrit (Bld) [Volume fraction] 25.0 % 38.8-50.0 [facility] Hemoglobin [Mass/volume] in BloodOrdered By: Evi Gay on 11-21-2022 Hemoglobin (Bld) [Mass/Vol] 8.4 g/dL 13.0-17.0 [facility] Leukocytes [#/volume] correc wiliam for nucleated erythrocytes in Blood by Automated counOrdered By: Evi Gay on 11-21-2022 WBC corrected for nucl RBC Auto (Bld) [#/Vol] 7.9 10*3/uL 4.1-10.5 [facility] Lymphocytes Auto (Bld) [#/Vo l]Ordered By: Evi Gay on 11-21-2022 Lymphocytes (Bld) [#/Vol] 2.2 10*3/uL 1.00-4.8 [facility] Lymphocytes/100 WBC Auto (Bl d)Ordered By: Evi Gay on 11-21-2022 Lymphocytes/100 WBC (Bld) 28.3 % . [facility] MCH Auto (RBC) [Entitic mass ]Ordered By: Evi Gay on 11-21-2022 MCH (RBC) [Entitic mass] 30.2 pg 27.5-35.2 [facility] MCHC Auto (RBC) [Mass/Vol]Or dered By: Evi Gay on 11-21-2022 MCHC (RBC) [Mass/Vol] 33.6 g/dL 32.5-35.6 [facility] MCV Auto (RBC) [Entitic vol] Ordered By: Evi Deidra on 11-21-2022 MCV (RBC) [Entitic vol] 89.8 fL 83.5-101 [facility] Magnesiumon 11-21-2022 Magnesium [Mass/Vol] 1.8 mg/dL Low 1.9-2.7 [facility] Comment on above: Result Comment: PERF ORMED BY:[facility] [place], [place] [phone] MEDICAL DIRECTORNATI LAUREN M.D. Performed By: #### C MP, MG ####[address] [place] [address] [facility] Magnesium [Mass/volume] in S thang or PlasmaOrdered By: Shant Villegas on 11-21-2022 Magnesium [Mass/Vol] 1.8 mg/dL 1.9-2.7 [facility] Monocytes Auto (Bld) [#/Vol] Ordered By: Evi Gay on 11-21-2022 Monocytes (Bld) [#/Vol] 0.8 10*3/uL 0.0-0.8 [facility] Monocytes/100 WBC Auto (Bld) Ordered By: Evi Gay on 11-21-2022 Monocytes/100 WBC (Bld) 10.5 % . [facility] Neutrophils Auto (Bld) [#/Vo l]Ordered By: Evi Gay on 11-21-2022 Neutrophils (Bld) [#/Vol] 4.4 10*3/uL 1.8-7.7 [facility] Neutrophils/100 WBC Auto (Bl d)Ordered By: Evi Gay on 11-21-2022 Neutrophils/100 WBC (Bld) 56.1 % . [facility] No Panel InformationOrdered By: Shant Villegas on 11-21-2022 Estimated GFR (CKD-EPI) > 60.0 mL/Min [facility] Creatinine Clearance (Chem 231.99 [facility] Nucleated erythrocytes [Pres ence] in Blood by Automated countOrdered By: Evi Gay on 11-21-2022 Nucleated RBC Auto Ql (Bld) 0.2 /100{WBC} 0-0.5 [facility] Platelet mean volume Auto (B ld) [Entitic vol]Ordered By: Evi Gay on 11-21-2022 Platelet mean volume (Bld) [Entitic vol] 7.2 fL 6.6-10.1 [facility] Platelets Auto (Bld) [#/Vol] Ordered By: Evi Gay on 11-21-2022 Platelets (Bld) [#/Vol] 486 10*3/uL 150-450 [facility] Potassium [Moles/volume] in Serum or PlasmaOrdered By: Shant Villegas on 11-21-2022 Potassium [Moles/Vol] 3.7 mmol/L 3.5-5.1 [facility] Protein [Mass/volume] in Ser um or PlasmaOrdered By: Shant Villegas on 11-21-2022 Protein [Mass/Vol] 5.7 g/dL 6.4-8.9 [facility] RBC Auto (Bld) [#/Vol]Ordere d By: Evi Gay on 11-21-2022 RBC (Bld) [#/Vol] 2.78 10*6/uL 3.90-5.60 [facility] Serum or plasma albumin/glob ulin mass ratioOrdered By: Shant Villegas on 11-21-2022 Albumin/Globulin [Mass ratio] 0.7 {ratio} [facility] Serum or plasma anion gap de terminationOrdered By: Shant Villegas on 11-21-2022 Anion gap [Moles/Vol] 8.7 mmol/L 6.0-15.0 [facility] Sodium [Moles/volume] in Ser um or PlasmaOrdered By: Shant Villegas on 11-21-2022 Sodium [Moles/Vol] 141 mmol/L 136-145 [facility] Urea nitrogen [Mass/volume] in Serum or PlasmaOrdered By: Shant Villegas on 11-21-2022 Urea nitrogen [Mass/Vol] 11 mg/dL 7-25 [facility] WBC Auto (Bld) [#/Vol]Ordere d By: Evi Gay on 11-21-2022 WBC (Bld) [#/Vol] 7.9 10*3/uL 4.1-10.5 [facility] Complete Blood Count Auto Di ffon 11-20-2022 Basophils (Bld) [#/Vol] 0.1 10*3/uL Normal 0.0-0.2 [facility] Comment on above: Result Comment: PERF ORMED BY:[address] [place], [place] [phone] MEDICAL DIRECTORNATI LAUREN M.D. Performed By: #### C BC ####[address] [address] [facility] Basophils/100 WBC (Bld) 1.0 % Normal . [facility] Comment on above: Performed By: #### C BC ####[address] [address] [facility] Eosinophils (Bld) [#/Vol] 0.2 10*3/uL Normal 0.0-0.45 [facility] Comment on above: Performed By: #### C BC ####[address] [address] [facility] Eosinophils/100 WBC (Bld) 2.2 % Normal . [facility] Comment on above: Performed By: #### C BC ####[address] [address] [facility] Erythrocyte distribution width (RBC) [Ratio] 13.7 % Normal 12.0-14.8 [facility] Comment on above: Performed By: #### C BC ####[address] [address] [facility] Hematocrit (Bld) [Volume fraction] 29.6 % Low 38.8-50.0 [facility] Comment on above: Performed By: #### C BC ####[address] [address] [facility] Hemoglobin (Bld) [Mass/Vol] 9.8 g/dL Low 13.0-17.0 [facility] Comment on above: Performed By: #### C BC ####[address] Lymphocytes (Bld) [#/Vol] 1.9 10*3/uL Normal 1.00-4.8 [facility] Comment on above: Performed By: #### C BC ####[address] Lymphocytes/100 WBC (Bld) 18.5 % Normal . [facility] Comment on above: Performed By: #### C BC ####[address] MCH (RBC) [Entitic mass] 29.5 pg Normal 27.5-35.2 [facility] Comment on above: Performed By: #### C BC ####[address] MCV (RBC) [Entitic vol] 89.4 fL Normal 83.5-101 [facility] Comment on above: Performed By: #### C BC ####[address] Mean Corpuscular HGB Conc 33.0 g/dL Normal 32.5-35.6 [facility] Comment on above: Performed By: #### C BC ####[address] Monocytes (Bld) [#/Vol] 1.0 10*3/uL High 0.0-0.8 [facility] Comment on above: Performed By: #### C BC ####[address] Monocytes/100 WBC (Bld) 9.9 % Normal . [facility] Comment on above: Performed By: #### C BC ####[address] Neutrophils (Bld) [#/Vol] 6.9 10*3/uL Normal 1.8-7.7 [facility] Comment on above: Performed By: #### C BC ####[address] Neutrophils/100 WBC (Bld) 68.4 % Normal . [facility] Comment on above: Performed By: #### C BC ####[address] NRBC% 0.1 /100{WBC} Normal 0-0.5 [facility] Comment on above: Performed By: #### C BC ####[address] Platelet mean volume (Bld) [Entitic vol] 7.5 fL Normal 6.6-10.1 [facility] Comment on above: Performed By: #### C BC ####[address] Platelets (Bld) [#/Vol] 434 10*3/uL Normal 150-450 [facility] Comment on above: Performed By: #### C BC ####[address] RBC (Bld) [#/Vol] 3.31 10*6/uL Low 3.90-5.60 [facility] Comment on above: Performed By: #### C BC ####[address] WBC (Bld) [#/Vol] 10.0 10*3/uL Normal 4.1-10.5 [facility] Comment on above: Performed By: #### C BC ####[address] Comprehensive Metabolic Pane tiago 11-20-2022 Albumin [Mass/Vol] 2.4 g/dL Low 3.5-5.7 [facility] Comment on above: Performed By: #### C MP, MG ####[address] Albumin/Globulin [Mass ratio] 0.7 {ratio} Normal [facility] Comment on above: Performed By: #### C MP, MG ####[address] ALP [Catalytic activity/Vol] 118 U/L High 34-104 [facility] Comment on above: Performed By: #### C MP, MG ####[address] [place] [id number] [facility] ALT [Catalytic activity/Vol] 47 U/L Normal 7-52 [facility] Comment on above: Performed By: #### C MP, MG ####[address] [place] [address] [facility] Anion gap [Moles/Vol] 10.6 mmol/L Normal 6.0-15.0 [facility] Comment on above: Performed By: #### C MP, MG ####[address] AST [Catalytic activity/Vol] 21 U/L Normal 13-39 [facility] Comment on above: Performed By: #### C MP, MG ####[id number] [facility] Bilirubin [Mass/Vol] 0.6 mg/dL Normal 0.3-1.0 [facility] Comment on above: Performed By: #### C MP, MG ####[id number] [facility] Calcium [Mass/Vol] 8.2 mg/dL Low 8.6-10.3 [facility] Comment on above: Performed By: #### C MP, MG ####[id number] [facility] Chloride [Moles/Vol] 100 mmol/L Normal 98-107 [facility] Comment on above: Performed By: #### C MP, MG ####[id number] [facility] CO2 [Moles/Vol] 31.8 mmol/L High 21.0-31.0 [facility] Comment on above: Performed By: #### C MP, MG ####[id number] [facility] Creatinine [Mass/Vol] 0.35 mg/dL Low 0.70-1.30 [facility] Comment on above: Performed By: #### C MP, MG ####[address] [place] [address] [facility] Creatinine Clr Calc Pharmacy 285.02 [facility] Comment on above: Performed By: #### C MP, MG ####[id number] [facility] GFR/1.73 sq M.predicted MDRD (S/P/Bld) [Vol rate/Area] mL/min/{1.73_m2} [facility] Comment on above: Performed By: #### C MP, MG ####[address] [place] [id number] [facility] Globulin (S) [Mass/Vol] 3.6 g/dL [facility] Comment on above: Performed By: #### C MP, MG ####[address] Glucose [Mass/Vol] 89 mg/dL Normal 70-100 [facility] Comment on above: Result Comment: [facility] Glucose Reference Range is dependent on time and content of last meal. Glucose of more than 200 mg/dL in a nonstressed, ambulatory subject supports the diagnosis of Diabetes Mellitus. ADA recommended reference range Performed By: #### C MP, MG ####[id number] [facility] Potassium [Moles/Vol] 3.4 mmol/L Low 3.5-5.1 [facility] Comment on above: Performed By: #### C MP, MG ####[id number] [facility] Protein [Mass/Vol] 6.0 g/dL Low 6.4-8.9 [facility] Comment on above: Performed By: #### C MP, MG ####[id number] [facility] Sodium [Moles/Vol] 139 mmol/L Normal 136-145 [facility] Comment on above: Performed By: #### C MP, MG ####[address] [address] [facility] Urea nitrogen [Mass/Vol] 13 mg/dL Normal 7-25 [facility] Comment on above: Performed By: #### C MP, MG ####[address] [address] [facility] Magnesiumon 11-20-2022 Magnesium [Mass/Vol] 1.8 mg/dL Low 1.9-2.7 [facility] Comment on above: Result Comment: PERF ORMED BY:[address] [place] [phone] MEDICAL DIRECTORNATI LAUREN M.D. Performed By: #### C MP, MG ####[address] [id number] [facility] XR chest 2V*on 11-20-2022 XR chest 2V* Normal [facility] Complete Blood Count Auto Di ffon 11-19-2022 Basophils (Bld) [#/Vol] 0.1 10*3/uL Normal 0.0-0.2 [facility] Comment on above: Result Comment: PERF ORMED BY:[address] [place] [place] [phone] MEDICAL DIRECTORNATI LAUREN M.D. Performed By: #### C BC ####[id number] [facility] Basophils/100 WBC (Bld) 1.2 % Normal . [facility] Comment on above: Performed By: #### C BC ####[id number] [facility] Eosinophils (Bld) [#/Vol] 0.2 10*3/uL Normal 0.0-0.45 [facility] Comment on above: Performed By: #### C BC ####[id number] [facility] Eosinophils/100 WBC (Bld) 2.0 % Normal . [facility] Comment on above: Performed By: #### C BC ####[address] [address] [facility] Erythrocyte distribution width (RBC) [Ratio] 13.7 % Normal 12.0-14.8 [facility] Comment on above: Performed By: #### C BC ####[address] [address] [facility] Hematocrit (Bld) [Volume fraction] 26.0 % Low 38.8-50.0 [facility] Comment on above: Performed By: #### C BC ####[address] [address] [facility] Hemoglobin (Bld) [Mass/Vol] 8.6 g/dL Low 13.0-17.0 [facility] Comment on above: Performed By: #### C BC ####[address] [address] [facility] Lymphocytes (Bld) [#/Vol] 2.0 10*3/uL Normal 1.00-4.8 [facility] Comment on above: Performed By: #### C BC ####[id number] [facility] Lymphocytes/100 WBC (Bld) 16.7 % Normal . [facility] Comment on above: Performed By: #### C BC ####[address] [address] [facility] MCH (RBC) [Entitic mass] 29.3 pg Normal 27.5-35.2 [facility] Comment on above: Performed By: #### C BC ####[address] [address] [facility] MCV (RBC) [Entitic vol] 89.0 fL Normal 83.5-101 [facility] Comment on above: Performed By: #### C BC ####[address] [address] [facility] Mean Corpuscular HGB Conc 32.9 g/dL Normal 32.5-35.6 [facility] Comment on above: Performed By: #### C BC ####[address] Monocytes (Bld) [#/Vol] 1.1 10*3/uL High 0.0-0.8 [facility] Comment on above: Performed By: #### C BC ####[address] Monocytes/100 WBC (Bld) 9.6 % Normal . [facility] Comment on above: Performed By: #### C BC ####[address] Neutrophils (Bld) [#/Vol] 8.3 10*3/uL High 1.8-7.7 [facility] Comment on above: Performed By: #### C BC ####[address] Neutrophils/100 WBC (Bld) 70.5 % Normal . [facility] Comment on above: Performed By: #### C BC ####[address] NRBC% 0.1 /100{WBC} Normal 0-0.5 [facility] Comment on above: Performed By: #### C BC ####[address] Platelet mean volume (Bld) [Entitic vol] 7.6 fL Normal 6.6-10.1 [facility] Comment on above: Performed By: #### C BC ####[place] [id number] [facility] Platelets (Bld) [#/Vol] 451 10*3/uL High 150-450 [facility] Comment on above: Performed By: #### C BC ####[address] RBC (Bld) [#/Vol] 2.92 10*6/uL Low 3.90-5.60 [facility] Comment on above: Performed By: #### C BC ####[address] WBC (Bld) [#/Vol] 11.8 10*3/uL High 4.1-10.5 [facility] Comment on above: Performed By: #### C BC ####[address] [address] [facility] Comprehensive Metabolic Pane tiago 11-19-2022 Albumin [Mass/Vol] 2.3 g/dL Low 3.5-5.7 [facility] Comment on above: Performed By: #### M Royal, CMP ####[address] [address] [facility] Albumin/Globulin [Mass ratio] 0.7 {ratio} Normal [facility] Comment on above: Performed By: #### Jayesh Paige, CMP ####[address] [address] [facility] ALP [Catalytic activity/Vol] 139 U/L High 34-104 [facility] Comment on above: Performed By: #### Jayesh Paige, CMP ####[address] [address] [facility] ALT [Catalytic activity/Vol] 59 U/L High 7-52 [facility] Comment on above: Performed By: #### Jayesh Paige, CMP ####[address] [address] [facility] Anion gap [Moles/Vol] 9.2 mmol/L Normal 6.0-15.0 [facility] Comment on above: Performed By: #### Jayesh Paige, CMP ####[address] [address] [facility] AST [Catalytic activity/Vol] 28 U/L Normal 13-39 [facility] Comment on above: Performed By: #### Jayesh Paige, CMP ####[address] [address] [facility] Bilirubin [Mass/Vol] 0.7 mg/dL Normal 0.3-1.0 [facility] Comment on above: Performed By: #### Jayesh Paige, CMP ####[address] [address] [facility] Calcium [Mass/Vol] 8.0 mg/dL Low 8.6-10.3 [facility] Comment on above: Performed By: #### Jayesh Paige, CMP ####[place] [id number] [facility] Chloride [Moles/Vol] 99 mmol/L Normal 98-107 [facility] Comment on above: Performed By: #### Jayesh Paige, CMP ####[place] [id number] [facility] CO2 [Moles/Vol] 34.0 mmol/L High 21.0-31.0 [facility] Comment on above: Performed By: #### Jayesh Paige, CMP ####[address] Creatinine [Mass/Vol] 0.38 mg/dL Low 0.70-1.30 [facility] Comment on above: Performed By: #### Jayesh Paige, CMP ####[address] Creatinine Clr Calc Pharmacy 284.27 [facility] Comment on above: Performed By: #### Jayesh Paige, CMP ####[place] [id number] [facility] GFR/1.73 sq M.predicted MDRD (S/P/Bld) [Vol rate/Area] mL/min/{1.73_m2} [facility] Comment on above: Performed By: #### Jayesh Paige, CMP ####[place] [id number] [facility] Globulin (S) [Mass/Vol] 3.5 g/dL [facility] Comment on above: Performed By: #### Jayesh Paige, CMP ####[place] [id number] [facility] Glucose [Mass/Vol] 92 mg/dL Normal 70-100 [facility] Comment on above: Result Comment: [place] Glucose Reference Range is dependent on time and content of last meal. Glucose of more than 200 mg/dL in a nonstressed, ambulatory subject supports the diagnosis of Diabetes Mellitus. ADA recommended reference range Performed By: #### M Royal, CMP ####[address] [place] [address] [facility] Potassium [Moles/Vol] 3.2 mmol/L Low 3.5-5.1 [facility] Comment on above: Performed By: #### M Royal, CMP ####[address] [place] [address] [facility] Protein [Mass/Vol] 5.8 g/dL Low 6.4-8.9 [facility] Comment on above: Performed By: #### M Royal, CMP ####[address] [place] [address] [facility] Sodium [Moles/Vol] 139 mmol/L Normal 136-145 [facility] Comment on above: Performed By: #### M Royal, CMP ####[address] [place] [address] [facility] Urea nitrogen [Mass/Vol] 11 mg/dL Normal 7-25 [facility] Comment on above: Performed By: #### M Royal, CMP ####[address] [address] [facility] Magnesiumon 11-19-2022 Magnesium [Mass/Vol] 1.8 mg/dL Low 1.9-2.7 [facility] Comment on above: Result Comment: PERF ORMED BY:[address] [place], [place] [id number] MEDICAL DIRECTORNATI LAUREN M.D. Performed By: #### M Royal, CMP ####[address] [place] [address] [facility] Arterial Blood Gason 023 ABG Base Excess 7.9 mmol/L High -3.0-3.0 [facility] Comment on above: Performed By: #### A BG ####Point of Care testing, ABG Frac Inspired O2 40 % Normal [facility] Comment on above: Performed By: #### A BG ####Point of Care testing, ABG Oxygen Content 7.1 mmol/L Normal 6.6-9.7 [facility] Comment on above: Performed By: #### A BG ####Point of Care testing, ABG Oxygen Saturation 95.6 % Normal 95.0-100.0 [facility] Comment on above: Performed By: #### A BG ####Point of Care testing, ABG PCO2 43.5 mm[Hg] Normal 35.0-45.0 [facility] Comment on above: Performed By: #### A BG ####Point of Care testing, ABG PEEP 6 [facility] Comment on above: Performed By: #### A BG ####Point of Care testing, ABG PH 7.49 High 7.35-7.45 [facility] Comment on above: Performed By: #### A BG ####Point of Care testing, ABG PO2 78.1 mm[Hg] Low 80.0-100.0 [facility] Comment on above: Performed By: #### A BG ####Point of Care testing, ABG TV 500 mL [facility] Comment on above: Performed By: #### A BG ####Point of Care testing, CO2 [Moles/Vol] 33.5 mmol/L High 23.0-27.0 [facility] Comment on above: Performed By: #### A BG ####Point of Care testing, HCO3 (Bld) [Moles/Vol] 32.2 mmol/L High 23.0-29.0 [facility] Comment on above: Performed By: #### A BG ####Point of Care testing, Respiratory [facility] Comment on above: Result Comment: Crit ical Value called on: 11/18/2022 at 05:43PERFORMED BY:[place] [id number] [place], [place] [phone] MEDICAL DIRECTORNATI LAUREN M.D. Performed By: #### A BG ####Point of Care testing, Set Respiratory Rate 20 Normal [facility] Comment on above: Performed By: #### A BG ####Point of Care testing, VBG Draw Site Right Radial [facility] Comment on above: Performed By: #### A BG ####Point of Care testing, Ventilator Mode AC [facility] Comment on above: Performed By: #### A BG ####Point of Care testing, Comprehensive Metabolic Pane tiago 11-18-2022 Albumin [Mass/Vol] 2.3 g/dL Low 3.5-5.7 [facility] Comment on above: Performed By: #### T RIG, SCAN CBC, MG, CMP ####[facility] [address] [place] [address] [facility] Albumin/Globulin [Mass ratio] 0.6 {ratio} [facility] Comment on above: Performed By: #### T RIG, SCAN CBC, MG, CMP ####[facility] [address] [place] [address] [facility] ALP [Catalytic activity/Vol] 169 U/L High 34-104 [facility] Comment on above: Performed By: #### T RIG, SCAN CBC, MG, CMP ####[facility] Rmm[address] [place] [address] [facility] ALT [Catalytic activity/Vol] 81 U/L High 7-52 [facility] Comment on above: Performed By: #### T RIG, SCAN CBC, MG, CMP ####[facility] Ozg[address] [place] [address] [facility] Anion gap [Moles/Vol] 8.2 mmol/L Normal 6.0-15.0 [facility] Comment on above: Performed By: #### T RIG, SCAN CBC, MG, CMP ####[facility] [address] [place] [address] [facility] AST [Catalytic activity/Vol] 53 U/L High 13-39 [facility] Comment on above: Performed By: #### T RIG, SCAN CBC, MG, CMP ####[facility] [address] [place] [address] [facility] Bilirubin [Mass/Vol] 0.5 mg/dL Normal 0.3-1.0 [facility] Comment on above: Performed By: #### T RIG, SCAN CBC, MG, CMP ####[address] Calcium [Mass/Vol] 7.9 mg/dL Low 8.6-10.3 [facility] Comment on above: Performed By: #### T RIG, SCAN CBC, MG, CMP ####[address] Chloride [Moles/Vol] 95 mmol/L Low 98-107 [facility] Comment on above: Performed By: #### T RIG, SCAN CBC, MG, CMP ####[address] CO2 [Moles/Vol] 34.3 mmol/L High 21.0-31.0 [facility] Comment on above: Performed By: #### T RIG, SCAN CBC, MG, CMP ####[address] Creatinine [Mass/Vol] 0.39 mg/dL Low 0.70-1.30 [facility] Comment on above: Performed By: #### T RIG, SCAN CBC, MG, CMP ####[address] Creatinine Clr Calc Pharmacy 276.98 [facility] Comment on above: Performed By: #### T RIG, SCAN CBC, MG, CMP ####[address] GFR/1.73 sq M.predicted MDRD (S/P/Bld) [Vol rate/Area] mL/min/{1.73_m2} [facility] Comment on above: Performed By: #### T RIG, SCAN CBC, MG, CMP ####[address] Globulin (S) [Mass/Vol] 3.6 g/dL [facility] Comment on above: Performed By: #### T RIG, SCAN CBC, MG, CMP ####[address] Glucose [Mass/Vol] 115 mg/dL High 70-100 [facility] Comment on above: Result Comment: [place] Glucose Reference Range is dependent on time and content of last meal. Glucose of more than 200 mg/dL in a nonstressed, ambulatory subject supports the diagnosis of Diabetes Mellitus. ADA recommended reference range Performed By: #### T RIG, SCAN CBC, MG, CMP ####[facility] Nlx[address] Potassium [Moles/Vol] 3.5 mmol/L Normal 3.5-5.1 [facility] Comment on above: Performed By: #### T RIG, SCAN CBC, MG, CMP ####[place] [address] Protein [Mass/Vol] 5.9 g/dL Low 6.4-8.9 [facility] Comment on above: Performed By: #### T RIG, SCAN CBC, MG, CMP ####[place] [id number] [facility] Sodium [Moles/Vol] 134 mmol/L Low 136-145 [facility] Comment on above: Performed By: #### T RIG, SCAN CBC, MG, CMP ####[place] [address] [place] [id number] [facility] Urea nitrogen [Mass/Vol] 15 mg/dL Normal 7-25 [facility] Comment on above: Performed By: #### T RIG, SCAN CBC, MG, CMP ####[address] Glucose Glucometer (BldC) [M ass/Vol]Ordered By: Shant Villegas on 11-18-2022 Glucose [Mass/Vol] 120 mg/dL [facility] Comment on above: Random Glucose Refer ence Range is dependent on time and content of last meal. Glucose of more than 200 mg/dL in a nonstressed, ambulatory subject supports the diagnosis of Diabetes Mellitus. Glucose Poct Glucometerson 0 11-18-2022 Glucose [Mass/Vol] 120 mg/dL Normal [facility] Comment on above: Result Comment: [facility] Glucose Reference Range is dependent on time and content of last meal. Glucose of more than 200 mg/dL in a nonstressed, ambulatory subject supports the diagnosis of Diabetes Mellitus.PERFORMED BY:[facility] [place] [place], [place] [phone] MEDICAL DIRECTORNATI LAUREN M.D. Performed By: #### G LULS ####Point of Care testing, Hypochromia LM Ql (Bld)Order ed By: Evi Gay on 11-18-2022 Hypochromia Ql (Bld) Moderate [facility] Laboratory - Chemistry and C hemistry - challengeOrdered By: Shant Villegas on 11-18-2022 CO2 [Moles/Vol] 33.5 mmol/L 23.0-27.0 [facility] HCO3 (Bld) [Moles/Vol] 32.2 mmol/L 23.0-29.0 [facility] Magnesiumon 11-18-2022 Magnesium [Mass/Vol] 1.9 mg/dL Normal 1.9-2.7 [facility] Comment on above: Performed By: #### T RIG, SCAN CBC, MG, CMP ####[facility] Mpv[address] [place] [address] [facility] No Panel InformationOrdered By: Shant Villegas on 11-18-2022 Arterial Blood Base Excess 7.9 mmol/L -3.0-3.0 [facility] Arterial Blood Oxygen Content 7.1 mmol/L 6.6-9.7 [facility] Arterial Blood Oxygen Saturation 95.6 % 95.0-100.0 [facility] Arterial Blood Partial Pressure CO2 43.5 mm[Hg] 35.0-45.0 [facility] Arterial Blood Partial Pressure O2 78.1 mm[Hg] 80.0-100.0 [facility] Arterial Blood pH 7.49 7.35-7.45 [facility] Blood Gas Critical Value See comment [facility] Comment on above: Critical Value abdi d on: 11/18/2022 at 05:43 Blood Gas PEEP 6 cmH2O [facility] Blood Gas Sample Site Right radial [facility] Blood Gas Set Respiration Rate 20 [facility] Blood Gas Tidal Volume 500 [facility] Ventilator Mode Ac [facility] FiO2 40 % [facility] Platelet adequacy [Presence] in Blood by Light microscopyOrdered By: Evi Deidra on 11-18-2022 Platelets LM Ql (Bld) Normal Normal [facility] Platelet morphology finding [Identifier] in BloodOrdered By: Evi Deidra on 11-18-2022 Platelet morphology finding Nom (Bld) Normal Normal [facility] Poikilocytosis [Presence] in Blood by Light microscopyOrdered By: Evi Deidra on 11-18-2022 Poikilocytosis LM Ql (Bld) Slight [facility] Polychromasia [Presence] in Blood by Light microscopyOrdered By: Evi Deidra on 11-18-2022 Polychromasia LM Ql (Bld) Moderate [facility] RBC morphologyOrdered By: Antoni lowry Deidra on 11-18-2022 RBC morphology finding Nom (Bld) N/A [facility] Scan and CBCon 11-18-2022 Basophils (Bld) [#/Vol] 0.1 10*3/uL Normal 0.0-0.2 [facility] Comment on above: Performed By: #### T RIG, SCAN CBC, MG, CMP ####[facility] [address] Basophils/100 WBC (Bld) 0.7 % Normal . [facility] Comment on above: Performed By: #### T RIG, SCAN CBC, MG, CMP ####[facility] [address] [place] [id number] [place] Eosinophils (Bld) [#/Vol] 0.2 10*3/uL Normal 0.0-0.45 [facility] Comment on above: Performed By: #### T RIG, SCAN CBC, MG, CMP ####[facility] Htk[address] [place] [address] [place] Eosinophils/100 WBC (Bld) 1.6 % Normal . [facility] Comment on above: Performed By: #### T RIG, SCAN CBC, MG, CMP ####[address] Erythrocyte distribution width (RBC) [Ratio] 13.8 % Normal 12.0-14.8 [facility] Comment on above: Performed By: #### T RIG, SCAN CBC, MG, CMP ####[address] Hematocrit (Bld) [Volume fraction] 25.8 % Low 38.8-50.0 [facility] Comment on above: Performed By: #### T RIG, SCAN CBC, MG, CMP ####[address] Hemoglobin (Bld) [Mass/Vol] 8.6 g/dL Low 13.0-17.0 [facility] Comment on above: Performed By: #### T RIG, SCAN CBC, MG, CMP ####[address] Hypochromasia Moderate Normal [facility] Comment on above: Performed By: #### T RIG, SCAN CBC, MG, CMP ####[address] Lymphocytes (Bld) [#/Vol] 1.6 10*3/uL Normal 1.00-4.8 [facility] Comment on above: Performed By: #### T RIG, SCAN CBC, MG, CMP ####[address] Lymphocytes/100 WBC (Bld) 11.6 % Normal . [facility] Comment on above: Performed By: #### T RIG, SCAN CBC, MG, CMP ####[address] MCH (RBC) [Entitic mass] 29.6 pg Normal 27.5-35.2 [facility] Comment on above: Performed By: #### T RIG, SCAN CBC, MG, CMP ####[address] MCV (RBC) [Entitic vol] 89.0 fL Normal 83.5-101 [facility] Comment on above: Performed By: #### T RIG, SCAN CBC, MG, CMP ####[address] Mean Corpuscular HGB Conc 33.3 g/dL Normal 32.5-35.6 [facility] Comment on above: Performed By: #### T RIG, SCAN CBC, MG, CMP ####[address] Monocytes (Bld) [#/Vol] 1.7 10*3/uL High 0.0-0.8 [facility] Comment on above: Performed By: #### T RIG, SCAN CBC, MG, CMP ####[address] Monocytes/100 WBC (Bld) 12.5 % Normal . [facility] Comment on above: Performed By: #### T RIG, SCAN CBC, MG, CMP ####[address] Neutrophils (Bld) [#/Vol] 10.1 10*3/uL High 1.8-7.7 [facility] Comment on above: Performed By: #### T RIG, SCAN CBC, MG, CMP ####[address] Neutrophils/100 WBC (Bld) 73.6 % Normal . [facility] Comment on above: Performed By: #### T RIG, SCAN CBC, MG, CMP ####[address] NRBC% 0.1 /100{WBC} Normal 0-0.5 [facility] Comment on above: Performed By: #### T RIG, SCAN CBC, MG, CMP ####[address] Platelet Estimate Normal Normal Normal [facility] Comment on above: Performed By: #### T RIG, SCAN CBC, MG, CMP ####[address] Platelet mean volume (Bld) [Entitic vol] 7.7 fL Normal 6.6-10.1 [facility] Comment on above: Performed By: #### T RIG, SCAN CBC, MG, CMP ####[address] Platelet Morphology Normal Normal Normal [facility] Comment on above: Result Comment: PERF ORMED BY:[address] [place], [place] [phone] MEDICAL DIRECTORNATI LAUREN M.D. Performed By: #### T RIG, SCAN CBC, MG, CMP ####[address] Platelets (Bld) [#/Vol] 418 10*3/uL Normal 150-450 [facility] Comment on above: Performed By: #### T RIG, SCAN CBC, MG, CMP ####[address] Poikilocytosis Slight Normal [facility] Comment on above: Performed By: #### T RIG, SCAN CBC, MG, CMP ####[address] Polychromasia Moderate Normal [facility] Comment on above: Performed By: #### T RIG, SCAN CBC, MG, CMP ####[address] RBC (Bld) [#/Vol] 2.90 10*6/uL Low 3.90-5.60 [facility] Comment on above: Performed By: #### T RIG, SCAN CBC, MG, CMP ####[address] WBC (Bld) [#/Vol] 13.7 10*3/uL High 4.1-10.5 [facility] Comment on above: Performed By: #### T RIG, SCAN CBC, MG, CMP ####[address] Triglyceride [Mass/volume] i n Serum or PlasmaOrdered By: Evi Gay on 11-18-2022 Triglyceride [Mass/Vol] 146 mg/dL 0-149 [facility] Comment on above: TRIG ATP III CLASSIF ICATIONTRIG less than 150 mg/dL NormalTRIG 150-199 mg/dL Borderline highTRIG 200-500 mg/dL High TRIG greater than 500 mg/dL Very highStandard traceable to the Center for Disease Conrtrol and Prevention (CDC) test method. Triglycerideson 11-18-2022 Triglyceride [Mass/Vol] 146 mg/dL Normal 0-149 [facility] Comment on above: Result Comment: TRIG ATP III CLASSIFICATION TRIG less than 150 mg/dL Normal TRIG 150-199 mg/dL Borderline high TRIG 200-500 mg/dL High TRIG greater than 500 mg/dL Very high Standard traceable to the Center for Disease Conrtrol and Prevention (CDC) test method.PERFORMED BY:[address] [place], [place] [phone] MEDICAL DIRECTORNATI LAUREN M.D. Performed By: #### T RIG, SCAN CBC, MG, CMP ####[address] [address] [facility] XR chest 1V portableon 11-18 XR chest 1V portable Normal [facility] Aerobic Cultureon 11-17-2022 Aerobic Culture Normal [facility] Comment on above: Performed By: #### G S, AERC ####[address] [address] [facility] Amylaseon 11-17-2022 Amylase [Catalytic activity/Vol] 16 U/L Low [facility] Comment on above: Order Comment: Comme nt please run off blood drawn this morning Performed By: #### L IPASE, CATRACHITO, HEPATIC ####[address] [address] [facility] Amylase [Enzymatic activity/ volume] in Serum or PlasmaOrdered By: Evi Gay on 11-17-2022 Amylase [Catalytic activity/Vol] 16 U/L 29 [facility] Arterial Blood Gason 023 ABG Base Excess 9.9 mmol/L High -3.0-3.0 [facility] Comment on above: Performed By: #### A BG ####Point of Care testing, ABG Frac Inspired O2 30 % Normal [facility] Comment on above: Performed By: #### A BG ####Point of Care testing, ABG Oxygen Content 5.9 mmol/L Low 6.6-9.7 [facility] Comment on above: Performed By: #### A BG ####Point of Care testing, ABG Oxygen Saturation 89.2 % Low 95.0-100.0 [facility] Comment on above: Performed By: #### A BG ####Point of Care testing, ABG PCO2 42.2 mm[Hg] Normal 35.0-45.0 [facility] Comment on above: Performed By: #### A BG ####Point of Care testing, ABG PEEP 10 [facility] Comment on above: Performed By: #### A BG ####Point of Care testing, ABG PH 7.52 High 7.35-7.45 [facility] Comment on above: Performed By: #### A BG ####Point of Care testing, ABG PO2 54.5 mm[Hg] Low 80.0-100.0 [facility] Comment on above: Performed By: #### A BG ####Point of Care testing, ABG TV 500 mL [facility] Comment on above: Performed By: #### A BG ####Point of Care testing, CO2 [Moles/Vol] 35.0 mmol/L High 23.0-27.0 [facility] Comment on above: Performed By: #### A BG ####Point of Care testing, HCO3 (Bld) [Moles/Vol] 33.7 mmol/L High 23.0-29.0 [facility] Comment on above: Performed By: #### A BG ####Point of Care testing, Respiratory [facility] Comment on above: Result Comment: Crit ical Value called on: 11/17/2022 at 04:38PERFORMED BY:[address] [place] [phone] MEDICAL DIRECTORNATI LAUREN M.D. Performed By: #### A BG ####Point of Care testing, Set Respiratory Rate 20 [facility] Comment on above: Performed By: #### A BG ####Point of Care testing, VBG Draw Site Right Radial [facility] Comment on above: Performed By: #### A BG ####Point of Care testing, Ventilator Mode AC [facility] Comment on above: Performed By: #### A BG ####Point of Care testing, Bacteria identified Aer cx N om (Unsp spec)Ordered By: Sanjay Holt on 11-17-2022 Aerobic Culture Corynebacterium stri atum [facility] Bacterial blood cultureOrder ed By: Sanjay Holt on 11-17-2022 Bacteria identified Cx Nom (Bld) NO GROWTH 5 DAYS [facility] Basic Metabolic Panelon 11-07 Anion gap [Moles/Vol] 9.3 mmol/L Normal 6.0-15.0 [facility] Comment on above: Performed By: #### B YOSEPH CBCNO ####[facility] [address] [place] [address] [facility] Calcium [Mass/Vol] 7.8 mg/dL Low 8.6-10.3 [facility] Comment on above: Performed By: #### B YOSEPH CBCNO ####[facility] Icj[address] [place] [address] [place] Chloride [Moles/Vol] 93 mmol/L Low 98-107 [facility] Comment on above: Performed By: #### B YOSEPH, CBCNO ####[facility] [address] [place] [address] [facility] CO2 [Moles/Vol] 33.7 mmol/L High 21.0-31.0 [facility] Comment on above: Performed By: #### B YOSEPH, CBCNO ####[facility] Hpr[address] [place] [address] [facility] Creatinine [Mass/Vol] 0.50 mg/dL Low 0.70-1.30 [facility] Comment on above: Performed By: #### B YOSEPH CBCNO ####[place] [address] [place] [address] [place] Creatinine Clr Calc Pharmacy 217.84 [facility] Comment on above: Result Comment: PERF ORMED BY:[address] [place], [place] [phone] MEDICAL DIRECTORNATI LAUREN M.D. Performed By: #### B YOSEPH, CBCNO ####[facility] Zvj[address] [place] [address] [place] GFR/1.73 sq M.predicted MDRD (S/P/Bld) [Vol rate/Area] mL/min/{1.73_m2} [facility] Comment on above: Performed By: #### B YOSEPH, CBCNO ####[place] [address] [place] [address] [facility] Glucose [Mass/Vol] 102 mg/dL High 70-100 [facility] Comment on above: Result Comment: [place] Glucose Reference Range is dependent on time and content of last meal. Glucose of more than 200 mg/dL in a nonstressed, ambulatory subject supports the diagnosis of Diabetes Mellitus. ADA recommended reference range Performed By: #### B YOSEPH, CBCNO ####[place] [address] [place] [address] [place] Potassium [Moles/Vol] 4.0 mmol/L Normal 3.5-5.1 [facility] Comment on above: Performed By: #### B YOSEPH, CBCNO ####[place] [address] [place] [address] [place] Sodium [Moles/Vol] 132 mmol/L Low 136-145 [facility] Comment on above: Performed By: #### B YOSEPH, CBCNO ####[facility] Xzs[address] [place] [address] [facility] Urea nitrogen [Mass/Vol] 23 mg/dL Normal 7-25 [facility] Comment on above: Performed By: #### B YOSEPH, CBCNO ####[place] [address] [place] [address] [facility] Bilirubin.direct [Mass/volum e] in Serum or PlasmaOrdered By: Evi Gay on 11-17-2022 Bilirubin.direct [Mass/Vol] 0.30 mg/dL 0.03-0.18 [facility] Blood Cultureon 11-17-2022 Bacteria identified Cx Nom (Bld) Comment suctioned NO GROWTH 5 DAYS PERFORMED BY: [facility] [address] [place] [address] PATHOLOGIST SEWER AND INSPECTOR NATI LAUREN M.D. Normal [facility] Comment on above: Performed By: #### C UBLD ####[address] [address] [facility] Creatine Kinaseon 11-17-2022 CK [Catalytic activity/Vol] 70 U/L Normal [facility] Comment on above: Order Comment: Comme nt has CVC LINE DRAW Performed By: #### H S TROP, CK ####[place] [id number] [facility] Creatine kinase [Enzymatic a ctivity/volume] in Serum or PlasmaOrdered By: Evi Gay on 11-17-2022 CK [Catalytic activity/Vol] 70 U/L [facility] ECG 12 lead ECGon 11-17-2022 ECG 12 lead ECG Normal [facility] ECG 12 lead ECG Normal [facility] ECH echo transthoracicon ECH echo transthoracic Normal [facility] Glucose Poct Glucometerson 0 11-17-2022 Commemt1 Glu2: Cleaned Meter Normal [facility] Comment on above: Result Comment: PERF ORMED BY:[place] [id number] [place], [place] [phone] MEDICAL DIRECTORNATI LAUREN M.D. Performed By: #### G LULS ####Point of Care testing, Glucose [Mass/Vol] 106 mg/dL Normal [facility] Comment on above: Result Comment: [place] Glucose Reference Range is dependent on time [...] Blood Cells Rare Epithelial Cells PERFORMED BY: [facility] [address] [place] [id number] PATHOLOGIST SEWER AND INSPECTOR NATI LAUREN M.D. Normal [facility] Comment on above: Performed By: #### G S, AERC ####[address] [address] [facility] Gram stain for investigation of transfusion reactionOrdered By: Sanjay Holt on 11-17-2022 Microscopic observation Gram stain Nom (Unsp spec) [facility] Hemogram CBC Without Diffon 11-17-2022 Erythrocyte distribution width (RBC) [Ratio] 13.7 % Normal 12.0-14.8 [facility] Comment on above: Performed By: #### B MP, CBCNO ####[facility] [address] [place] [address] [facility] Hematocrit (Bld) [Volume fraction] 28.0 % Low 38.8-50.0 [facility] Comment on above: Performed By: #### B MP, CBCNO ####[address] [address] [facility] Hemoglobin (Bld) [Mass/Vol] 9.1 g/dL Low 13.0-17.0 [facility] Comment on above: Performed By: #### B MP, CBCNO ####[facility] [address] [place] [address] [facility] MCH (RBC) [Entitic mass] 29.1 pg Normal 27.5-35.2 [facility] Comment on above: Performed By: #### B MP, CBCNO ####[facility] Xot[address] [place] [address] [facility] MCV (RBC) [Entitic vol] 89.7 fL Normal 83.5-101 [facility] Comment on above: Performed By: #### B MP, CBCNO ####[facility] [place] [address] [facility] Mean Corpuscular HGB Conc 32.4 g/dL Low 32.5-35.6 [facility] Comment on above: Performed By: #### B YOSEPH, CBCNO ####[place] [address] [place] [address] [facility] Platelet mean volume (Bld) [Entitic vol] 7.7 fL Normal 6.6-10.1 [facility] Comment on above: Result Comment: PERF ORMED BY:[address] [place], [place] [phone] MEDICAL DIRECTORNATI LAUREN M.D. Performed By: #### B YOSEPH, CBCNO ####[place] [address] [place] [address] [facility] Platelets (Bld) [#/Vol] 423 10*3/uL Normal 150-450 [facility] Comment on above: Performed By: #### B YOSEPH, CBCNO ####[address] [place] [address] [facility] RBC (Bld) [#/Vol] 3.12 10*6/uL Low 3.90-5.60 [facility] Comment on above: Performed By: #### B YOSEPH, CBCNO ####[address] [address] [facility] WBC (Bld) [#/Vol] 20.5 10*3/uL High 4.1-10.5 [facility] Comment on above: Performed By: #### B YOSEPH, CBCNO ####[address] [address] [facility] Hepatic Panelon 11-17-2022 Albumin [Mass/Vol] 2.4 g/dL Low 3.5-5.7 [facility] Comment on above: Order Comment: Comme nt please run off blood drawn this morning Performed By: #### L IPASE, CATRACHITO, HEPATIC ####[address] [address] [facility] Albumin/Globulin [Mass ratio] 0.7 {ratio} Normal [facility] Comment on above: Order Comment: Comme nt please run off blood drawn this morning Performed By: #### L IPASE, CATRACHITO, HEPATIC ####[facility] [place] [address] [facility] ALP [Catalytic activity/Vol] 170 U/L High 34-104 [facility] Comment on above: Order Comment: Comme nt please run off blood drawn this morning Performed By: #### L IPASE, CATRACHITO, HEPATIC ####[address] [place] [address] [facility] ALT [Catalytic activity/Vol] 64 U/L High 7-52 [facility] Comment on above: Order Comment: Comme nt please run off blood drawn this morning Performed By: #### L IPASE, CATRACHITO, HEPATIC ####[address] [place] [address] [facility] AST [Catalytic activity/Vol] 64 U/L High 13-39 [facility] Comment on above: Order Comment: Comme nt please run off blood drawn this morning Performed By: #### L IPASE, CATRACHITO, HEPATIC ####[address] [place] [address] [facility] Bilirubin [Mass/Vol] 0.6 mg/dL Normal 0.3-1.0 [facility] Comment on above: Order Comment: Comme nt please run off blood drawn this morning Performed By: #### L IPASE, CATRACHITO, HEPATIC ####[address] [place] [address] [place] Bilirubin,Indirect 0.3 mg/dL Normal [facility] Comment on above: Order Comment: Comme nt please run off blood drawn this morning Performed By: #### L IPASE, CATRACHITO, HEPATIC ####[address] [place] [address] [place] Bilirubin.indirect [Mass/Vol] 0.30 mg/dL High 0.03-0.18 [facility] Comment on above: Order Comment: Comme nt please run off blood drawn this morning Performed By: #### L IPASE, CATRACHITO, HEPATIC ####[address] [place] [address] [facility] Globulin (S) [Mass/Vol] 3.6 g/dL Normal [facility] Comment on above: Order Comment: Comme nt please run off blood drawn this morning Performed By: #### L IPASE, CATRACHITO, HEPATIC ####[address] [address] [facility] Protein [Mass/Vol] 6.0 g/dL Low 6.4-8.9 [facility] Comment on above: Order Comment: Comme nt please run off blood drawn this morning Performed By: #### L IPASE, CATRACHITO, HEPATIC ####[address] [address] [facility] Lipaseon 11-17-2022 Lipase [Catalytic activity/Vol] 12.0 U/L Normal 11.0-82.0 [facility] Comment on above: Order Comment: Comme nt please run off blood drawn this morning Result Comment: PERF ORMED BY:[address] [place], [place] [phone] MEDICAL DIRECTORNATI LAUREN M.D. Performed By: #### L IPASE, CATRACHITO, HEPATIC ####[address] [address] [facility] Lipase [Enzymatic activity/v olume] in Serum or PlasmaOrdered By: Evi Gay on 11-17-2022 Lipase [Catalytic activity/Vol] 12.0 U/L 11.0-82.0 [facility] Magnesiumon 11-17-2022 Magnesium [Mass/Vol] 1.9 mg/dL Normal 1.9-2.7 [facility] Comment on above: Result Comment: PERF ORMED BY:[address] [place], [place] [phone] MEDICAL DIRECTORNATI LAUREN M.D. Performed By: #### M G ####[address] [address] [facility] No Panel InformationOrdered By: Shant Villegas on 11-17-2022 Bedside Glucose Comment Glu2: cleaned meter [facility] Serum or plasma non-glucuron idated bilirubin measurement (mass/volume)Ordered By: Evi Gay on 11-17-2022 Bilirubin.indirect [Mass/Vol] 0.3 mg/dL [facility] Thyroid Stimulating Hormoneo n 11-17-2022 TSH Qn 9.27 m[IU]/L High 0.45-5.33 [facility] Comment on above: Order Comment: Comme nt please run off blood drawn today Result Comment: PERF ORMED BY:[address] [place], [place] [phone] MEDICAL DIRECTORNATI LAUREN M.D. Performed By: #### T SH3 ####[address] [address] [facility] Thyrotropin [Units/volume] i n Serum or PlasmaOrdered By: Evi Gay on 11-17-2022 TSH Qn 9.27 m[IU]/L 0.45-5.33 [facility] Troponin I High Sensitivityo n 11-17-2022 Troponin I High Sensitivity 24.1 pg/mL High 0.0-20.0 [facility] Comment on above: Order Comment: Comme nt has CVC LINE DRAW Result Comment: PERF ORMED BY:[address] [place], [place] [phone] MEDICAL DIRECTORNATI LAUREN M.D. Performed By: #### H S TROP, CK ####[address] [address] [facility] Troponin I.cardiac [Mass/vol ume] in Serum or Plasma by Detection limit <= 0.01 ng/Ordered By: Evi Gay on 11-17-2022 Troponin I.cardiac DL <= 0.01 ng/mL [Mass/Vol] 24.1 pg/mL 0.0-20.0 [facility] XR chest 1V portableon 11-17 XR chest 1V portable Normal [facility] Arterial Blood Gason 023 ABG Base Excess 10.9 mmol/L High -3.0-3.0 [facility] Comment on above: Performed By: #### A BG ####Point of Care testing, ABG Frac Inspired O2 50 % Normal [facility] Comment on above: Performed By: #### A BG ####Point of Care testing, ABG Oxygen Content 6.1 mmol/L Low 6.6-9.7 [facility] Comment on above: Performed By: #### A BG ####Point of Care testing, ABG Oxygen Saturation 94.7 % Low 95.0-100.0 [facility] Comment on above: Performed By: #### A BG ####Point of Care testing, ABG PCO2 43.6 mm[Hg] Normal 35.0-45.0 [facility] Comment on above: Performed By: #### A BG ####Point of Care testing, ABG PEEP 10 [facility] Comment on above: Performed By: #### A BG ####Point of Care testing, ABG PH 7.52 High 7.35-7.45 [facility] Comment on above: Performed By: #### A BG ####Point of Care testing, ABG PO2 71.3 mm[Hg] Low 80.0-100.0 [facility] Comment on above: Performed By: #### A BG ####Point of Care testing, ABG TV 500 mL [facility] Comment on above: Performed By: #### A BG ####Point of Care testing, CO2 [Moles/Vol] 36.1 mmol/L High 23.0-27.0 [facility] Comment on above: Performed By: #### A BG ####Point of Care testing, HCO3 (Bld) [Moles/Vol] 34.8 mmol/L High 23.0-29.0 [facility] Comment on above: Performed By: #### A BG ####Point of Care testing, Respiratory Critical [facility] Comment on above: Result Comment: Crit ical Value called on: 11/16/2022 at 04:35PERFORMED BY:[facility] [place], [place] [phone] MEDICAL DIRECTORNATI LAUREN M.D. Performed By: #### A BG ####Point of Care testing, Set Respiratory Rate 20 [facility] Comment on above: Performed By: #### A BG ####Point of Care testing, VBG Draw Site Left Radial [facility] Comment on above: Performed By: #### A BG ####Point of Care testing, Ventilator Mode AC [facility] Comment on above: Performed By: #### A BG ####Point of Care testing, Automated erythrocytes count in urine sediment (number/area)Ordered By: Sanjay Holt on 11-16-2022 RBC Auto (Urine sed) [#/Area] 50-100 [HPF] 0-4 [facility] Automated leukocytes count i n urine sediment (number/area)Ordered By: Sanjay Holt on 11-16-2022 WBC Auto (Urine sed) [#/Area] 3-4 [HPF] 0-4 [facility] Basic Metabolic Panelon 11-07 Anion gap [Moles/Vol] 8.6 mmol/L Normal 6.0-15.0 [facility] Comment on above: Performed By: #### B MP, TRIG ####[facility] [address] [place] [address] [facility] Calcium [Mass/Vol] 7.5 mg/dL Low 8.6-10.3 [facility] Comment on above: Performed By: #### B MP, TRIG ####[facility] [address] [place] [address] [place] Chloride [Moles/Vol] 90 mmol/L Low 98-107 [facility] Comment on above: Performed By: #### B MP, TRIG ####[facility] [address] [place] [address] [facility] CO2 [Moles/Vol] 36.7 mmol/L High 21.0-31.0 [facility] Comment on above: Performed By: #### B MP, TRIG ####[facility] [address] [place] [address] [facility] Creatinine [Mass/Vol] 0.65 mg/dL Low 0.70-1.30 [facility] Comment on above: Performed By: #### B YOSEPH, TRIG ####[facility] [place] [address] [place] Creatinine Clr Calc Pharmacy 167.57 [facility] Comment on above: Performed By: #### B YOSEPH, TRIG ####[address] [place] [address] [place] GFR/1.73 sq M.predicted MDRD (S/P/Bld) [Vol rate/Area] mL/min/{1.73_m2} [facility] Comment on above: Performed By: #### B YOSEPH, TRIG ####[address] [place] [address] [facility] Glucose [Mass/Vol] 106 mg/dL High 70-100 [facility] Comment on above: Result Comment: [facility] Glucose Reference Range is dependent on time and content of last meal. Glucose of more than 200 mg/dL in a nonstressed, ambulatory subject supports the diagnosis of Diabetes Mellitus. ADA recommended reference range Performed By: #### B YOSEPH, TRIG ####[address] [place] [address] [facility] Potassium [Moles/Vol] 4.3 mmol/L Normal 3.5-5.1 [facility] Comment on above: Performed By: #### B YOSEPH, TRIG ####[address] [place] [address] [facility] Sodium [Moles/Vol] 131 mmol/L Low 136-145 [facility] Comment on above: Performed By: #### B YOSEPH, TRIG ####[address] [place] [address] [facility] Urea nitrogen [Mass/Vol] 32 mg/dL High 7-25 [facility] Comment on above: Performed By: #### B YOSEPH, TRIG ####[address] [place] [address] [facility] Bilirubin Test strip Ql (U)O rdered By: Sanjay Holt on 11-16-2022 Bilirubin Ql (U) Negative Negative [facility] Blood Cultureon 11-16-2022 Bacteria identified Cx Nom (Bld) NO GROWTH 5 DAYS PERFORMED BY: [facility] [address] [place] [address] PATHOLOGIST SEWER AND INSPECTOR NATI LAUREN M.D. [facility] Comment on above: Performed By: #### C UBLD ####[facility] [id number] [place] [address] [facility] Bacteria identified Cx Nom (Bld) NO GROWTH 5 DAYS PERFORMED BY: [facility] [address] [place] [address] PATHOLOGIST SEWER AND INSPECTOR NATI LAUREN M.D. [facility] Comment on above: Performed By: #### C UBLD ####[address] [address] [facility] [address] angio chest PE protocolon 11-16-2022 CT angio chest PE protocol Normal [facility] Color Auto (U)Ordered By: Stephanie Holt on 11-16-2022 Color (U) Dark yellow Yellow [facility] Dipstick and Microscopicon 0 11-16-2022 Appearance (U) Clear Normal Clear [facility] Comment on above: Order Comment: Name Collection Type:: Earl Catheter Performed By: #### C UU, ADDONUAPLUS ####[address] [address] [place] Bacteria,Urine None Seen Normal None Seen [facility] Comment on above: Order Comment: Name Collection Type:: Earl Catheter Performed By: #### C UU, ADDONUAPLUS ####[address] [address] [place] Bilirubin,Urine Negative Normal Negative [facility] Comment on above: Order Comment: Name Collection Type:: Earl Catheter Performed By: #### C UU, ADDONUAPLUS ####[facility] [address] [place] [address] [place] Color (U) Dark Yellow Critically abnormal Yellow [facility] Comment on above: Order Comment: Name Collection Type:: Earl Catheter Performed By: #### C UU, ADDONUAPLUS ####[address] [address] [facility] Glucose Ql (U) Normal Normal Normal [facility] Comment on above: Order Comment: Name Collection Type:: Earl Catheter Performed By: #### C UU, ADDONUAPLUS ####[address] [address] [facility] Hyaline Casts,Urine 0-8 Normal 0-8 [facility] Comment on above: Order Comment: Name Collection Type:: Earl Catheter Result Comment: PERF ORMED BY:[address] [place], [place] [phone] MEDICAL DIRECTORNATI LAUREN M.D. Performed By: #### C UU, ADDONUAPLUS ####[address] [address] [facility] Ketones Ql (U) Negative Normal Negative [facility] Comment on above: Order Comment: Name Collection Type:: Earl Catheter Performed By: #### C UU, ADDONUAPLUS ####[address] [address] [facility] Leukocyte esterase Test strip Ql (U) 1+ High Negative [facility] Comment on above: Order Comment: Name Collection Type:: Earl Catheter Performed By: #### C UU, ADDONUAPLUS ####[address] [address] [facility] Nitrite,Urine Negative Normal Negative [facility] Comment on above: Order Comment: Name Collection Type:: Earl Catheter Performed By: #### C UU, ADDONUAPLUS ####[address] [address] [facility] Occult Blood,Urine 1+ High Negative [facility] Comment on above: Order Comment: Name Collection Type:: Earl Catheter Result Comment: PERF ORMED BY:[address] [place], [place] [phone] MEDICAL DIRECTORNATI LAUREN M.D. Performed By: #### C UU, ADDONUAPLUS ####[address] [address] [facility] pH (U) 5.5 [pH] Normal 5.0-9.0 [facility] Comment on above: Order Comment: Name Collection Type:: Earl Catheter Performed By: #### C UU, ADDONUAPLUS ####[address] [address] [facility] Protein,Urine Trace High Negative [facility] Comment on above: Order Comment: Name Collection Type:: Earl Catheter Performed By: #### C UU, ADDONUAPLUS ####[address] [address] [facility] RBC,Urine 50-100 High 0-4 [facility] Comment on above: Order Comment: Name Collection Type:: Earl Catheter Performed By: #### C UU, ADDONUAPLUS ####[id number] [facility] Specificy [place],Urine 1.022 Normal 1.001-1.03 0 [facility] Comment on above: Order Comment: Name Collection Type:: Earl Catheter Performed By: #### C UU, ADDONUAPLUS ####[id number] [facility] Squamous Epithelial Cell,Urine None Seen Normal 0-2 [facility] Comment on above: Order Comment: Name Collection Type:: Earl Catheter Performed By: #### C UU, ADDONUAPLUS ####[address] [address] [facility] Urobilinogen,Urine Normal Normal Normal [facility] Comment on above: Order Comment: Name Collection Type:: Earl Catheter Performed By: #### C UU, ADDONUAPLUS ####[address] [address] [facility] WBC,Urine 3-4 Normal 0-4 [facility] Comment on above: Order Comment: Name Collection Type:: Earl Catheter Performed By: #### C UU, ADDONUAPLUS ####[address] [address] [place] Glucose Poct Glucometerson 0 11-16-2022 Commemt1 Glu2: Cleaned Meter Normal [facility] Comment on above: Result Comment: PERF ORMED BY:[facility] [place], [place] [phone] MEDICAL DIRECTORNATI LAUREN M.D. Performed By: #### G LULS ####Point of Care testing, Glucose [Mass/Vol] 101 mg/dL Normal [facility] Comment on above: Result Comment: [facility] Glucose Reference Range is dependent on time and content of last meal. Glucose of more than 200 mg/dL in a nonstressed, ambulatory subject supports the diagnosis of Diabetes Mellitus. Performed By: #### G LULS ####Point of Care testing, Ketones Auto test strip (U) [Mass/Vol]Ordered By: Sanjay Holt on 11-16-2022 Ketones (U) [Mass/Vol] Negative Negative [facility] - UrinalysisOrder ed By: Sanjay Holt on 11-16-2022 Hyaline casts LM Ql (Urine sed) 0-8 [LPF] 0-8 [facility] Nitrite Test strip Ql (U)Ord ered By: Sanjay Holt on 11-16-2022 Nitrite Ql (U) Negative Negative [facility] Protein Auto test strip (U) [Mass/Vol]Ordered By: Sanjay Holt on 11-16-2022 Protein (U) [Mass/Vol] Trace mg/dL Negative [facility] Red blood cell stomatocyte d etectionOrdered By: Reginald Arroyo on 11-16-2022 Stomatocytes LM Ql (Bld) Slight [facility] Scan and CBCon 11-16-2022 Basophils (Bld) [#/Vol] 0.2 10*3/uL Normal 0.0-0.2 [facility] Comment on above: Performed By: #### S CAN CBC ####[facility] [address] [place] [address] [facility] Basophils/100 WBC (Bld) 0.7 % Normal . [facility] Comment on above: Performed By: #### S CAN CBC ####[address] Eosinophils (Bld) [#/Vol] 0.2 10*3/uL Normal 0.0-0.45 [facility] Comment on above: Performed By: #### S CAN CBC ####[address] Eosinophils/100 WBC (Bld) 0.8 % Normal . [facility] Comment on above: Performed By: #### S CAN CBC ####[address] Erythrocyte distribution width (RBC) [Ratio] 13.7 % Normal 12.0-14.8 [facility] Comment on above: Performed By: #### S CAN CBC ####[address] Hematocrit (Bld) [Volume fraction] 26.4 % Low 38.8-50.0 [facility] Comment on above: Performed By: #### S CAN CBC ####[address] Hemoglobin (Bld) [Mass/Vol] 8.6 g/dL Low 13.0-17.0 [facility] Comment on above: Performed By: #### S CAN CBC ####[address] Hypochromasia Moderate Normal [facility] Comment on above: Performed By: #### S CAN CBC ####[address] Lymphocytes (Bld) [#/Vol] 1.9 10*3/uL Normal 1.00-4.8 [facility] Comment on above: Performed By: #### S CAN CBC ####[address] Lymphocytes/100 WBC (Bld) 7.8 % Normal . [facility] Comment on above: Performed By: #### S CAN CBC ####[address] MCH (RBC) [Entitic mass] 29.0 pg Normal 27.5-35.2 [facility] Comment on above: Performed By: #### S CAN CBC ####[address] MCV (RBC) [Entitic vol] 89.5 fL Normal 83.5-101 [facility] Comment on above: Performed By: #### S CAN CBC ####[address] Mean Corpuscular HGB Conc 32.4 g/dL Low 32.5-35.6 [facility] Comment on above: Performed By: #### S CAN CBC ####[address] Monocytes (Bld) [#/Vol] 2.3 10*3/uL High 0.0-0.8 [facility] Comment on above: Performed By: #### S CAN CBC ####[address] Monocytes/100 WBC (Bld) 9.4 % Normal . [facility] Comment on above: Performed By: #### S CAN CBC ####[address] Neutrophils (Bld) [#/Vol] 19.7 10*3/uL High 1.8-7.7 [facility] Comment on above: Performed By: #### S CAN CBC ####[address] Neutrophils/100 WBC (Bld) 81.3 % Normal . [facility] Comment on above: Performed By: #### S CAN CBC ####[address] NRBC% 0.0 /100{WBC} Normal 0-0.5 [facility] Comment on above: Performed By: #### S CAN CBC ####[address] Platelet Estimate Normal Normal Normal [facility] Comment on above: Performed By: #### S CAN CBC ####[address] [address] [facility] Platelet mean volume (Bld) [Entitic vol] 7.8 fL Normal 6.6-10.1 [facility] Comment on above: Performed By: #### S CAN CBC ####[address] [address] [facility] Platelet Morphology Normal Normal Normal [facility] Comment on above: Result Comment: PERF ORMED BY:[address] [place], [place] [phone] MEDICAL ALEKSANDAR LAUREN M.D. Performed By: #### S CAN CBC ####[place] [id number] [facility] Platelets (Bld) [#/Vol] 369 10*3/uL Normal 150-450 [facility] Comment on above: Performed By: #### S CAN CBC ####[place] [id number] [facility] Polychromasia Slight Normal [facility] Comment on above: Performed By: #### S CAN CBC ####[place] [id number] [facility] RBC (Bld) [#/Vol] 2.95 10*6/uL Low 3.90-5.60 [facility] Comment on above: Performed By: #### S CAN CBC ####[address] [address] [facility] Stomatocytes Slight Normal [facility] Comment on above: Performed By: #### S CAN CBC ####[place] [id number] [facility] WBC (Bld) [#/Vol] 24.2 10*3/uL High 4.1-10.5 [facility] Comment on above: Performed By: #### S CAN CBC ####[place] [id number] [facility] Specific gravity Auto test s trip (U) [Rel density]Ordered By: Sanjay Holt on 11-16-2022 Specific gravity (U) [Rel density] 1.022 1.001-1.03 0 [facility] Squamous epithelial cells de tection in urine sediment by light microscopyOrdered By: Sanjay Holt on 11-16-2022 Epithelial cells.squamous LM Ql (Urine sed) None seen [HPF] 0-2 [facility] Triglycerideson 11-16-2022 Triglyceride [Mass/Vol] 109 mg/dL Normal 0-149 [facility] Comment on above: Result Comment: TRIG ATP III CLASSIFICATION TRIG less than 150 mg/dL Normal TRIG 150-199 mg/dL Borderline high TRIG 200-500 mg/dL High TRIG greater than 500 mg/dL Very high Standard traceable to the Center for Disease Conrtrol and Prevention (CDC) test method.PERFORMED BY:[facility] [place], [place] [phone] MEDICAL DIRECTORNATI LAUREN M.D. Performed By: #### B MP, TRIG ####[place] [id number] [facility] Urine Cultureon 11-16-2022 Bacteria identified Cx Nom (U) No Growth 2 Days PERFORMED BY: [facility] [address] [place] [address] PATHOLOGIST SEWER AND INSPECTOR NATI LAUREN M.D. [facility] Comment on above: Performed By: #### C UU, ADDONUAPLUS ####[place] [id number] [facility] Urine bacteria detection by automated methodOrdered By: Sanjay Holt on 11-16-2022 Bacteria Auto Ql (U) None seen None Seen [facility] Urine clarity by refractomet ry automatedOrdered By: Sanjay Holt on 11-16-2022 Clarity Refractometry automated (U) Clear Clear [facility] Urine culture routineOrdered By: Sanjay Holt on 11-16-2022 Bacteria identified Cx Nom (U) No Growth 2 Days [facility] Urine glucose measurement by automated test strip (mass/volume)Ordered By: Sanjay Holt on 11-16-2022 Glucose Auto test strip (U) [Mass/Vol] Normal mg/dL Normal [facility] Urine hemoglobin detection b y automated test stripOrdered By: Sanjay Holt on 11-16-2022 Hemoglobin Auto test strip Ql (U) 1+ Negative [facility] Urine leukocyte esterase det ection by automated test stripOrdered By: Sanjay Holt on 11-16-2022 Leukocyte esterase Auto test strip Ql (U) 1+ Negative [facility] Urobilinogen Auto test strip (U) [Mass/Vol]Ordered By: Sanjay Holt on 11-16-2022 Urobilinogen (U) [Mass/Vol] Normal mg/dL Normal [facility] XR chest 1V portableon 11-16 XR chest 1V portable Normal [facility] pH Auto test strip (U)Ordere d By: Sanjay Holt on 11-16-2022 pH (U) 5.5 [pH] 5.0-9.0 [facility] Arterial Blood Gason 023 ABG Base Excess 9.5 mmol/L High -3.0-3.0 [facility] Comment on above: Performed By: #### A BG ####Point of Care testing, ABG Frac Inspired O2 80 % [facility] Comment on above: Performed By: #### A BG ####Point of Care testing, ABG Oxygen Content 7.0 mmol/L Normal 6.6-9.7 [facility] Comment on above: Performed By: #### A BG ####Point of Care testing, ABG Oxygen Saturation 97.2 % Normal 95.0-100.0 [facility] Comment on above: Performed By: #### A BG ####Point of Care testing, ABG PCO2 45.9 mm[Hg] High 35.0-45.0 [facility] Comment on above: Performed By: #### A BG ####Point of Care testing, ABG PEEP 10 [facility] Comment on above: Performed By: #### A BG ####Point of Care testing, ABG PH 7.49 High 7.35-7.45 [facility] Comment on above: Performed By: #### A BG ####Point of Care testing, ABG PO2 92.1 mm[Hg] Normal 80.0-100.0 [facility] Comment on above: Performed By: #### A BG ####Point of Care testing, ABG TV 500 mL [facility] Comment on above: Performed By: #### A BG ####Point of Care testing, CO2 [Moles/Vol] 35.4 mmol/L High 23.0-27.0 [facility] Comment on above: Performed By: #### A BG ####Point of Care testing, HCO3 (Bld) [Moles/Vol] 34.0 mmol/L High 23.0-29.0 [facility] Comment on above: Performed By: #### A BG ####Point of Care testing, Respiratory Critical [facility] Comment on above: Result Comment: Crit ical Value called on: 11/15/2022 at 05:48PERFORMED BY:[address] [place], [place] [phone] MEDICAL DIRECTORNATI LAUREN M.D. Performed By: #### A BG ####Point of Care testing, Set Respiratory Rate 20 [facility] Comment on above: Performed By: #### A BG ####Point of Care testing, VBG Draw Site Left Radial [facility] Comment on above: Performed By: #### A BG ####Point of Care testing, Ventilator Mode AC [facility] Comment on above: Performed By: #### A BG ####Point of Care testing, Basic Metabolic Panelon Anion gap [Moles/Vol] 8.4 mmol/L Normal 6.0-15.0 [facility] Comment on above: Performed By: #### S CAN CBC, BMP ####[facility] [address] [place] [address] [facility] Calcium [Mass/Vol] 7.8 mg/dL Low 8.6-10.3 [facility] Comment on above: Performed By: #### S CAN CBC, BMP ####[facility] [address] [place] [id number] [facility] Chloride [Moles/Vol] 90 mmol/L Low 98-107 [facility] Comment on above: Performed By: #### S CAN CBC, BMP ####[place] [address] [place] [address] [facility] CO2 [Moles/Vol] 35.9 mmol/L High 21.0-31.0 [facility] Comment on above: Performed By: #### S CAN CBC, BMP ####[place] [address] [place] [address] [facility] Creatinine [Mass/Vol] 0.57 mg/dL Low 0.70-1.30 [facility] Comment on above: Performed By: #### S CAN CBC, BMP ####[place] [address] [place] [address] [facility] Creatinine Clr Calc Pharmacy 191.33 [facility] Comment on above: Result Comment: PERF ORMED BY:[address] [place], [place] [phone] MEDICAL DIRECTORNATI LAUREN M.D. Performed By: #### S CAN CBC, BMP ####[place] [address] [place] [id number] [facility] GFR/1.73 sq M.predicted MDRD (S/P/Bld) [Vol rate/Area] mL/min/{1.73_m2} [facility] Comment on above: Performed By: #### S CAN CBC, BMP ####[place] [address] [place] [address] [facility] Glucose [Mass/Vol] 126 mg/dL High 70-100 [facility] Comment on above: Result Comment: [place] Glucose Reference Range is dependent on time and content of last meal. Glucose of more than 200 mg/dL in a nonstressed, ambulatory subject supports the diagnosis of Diabetes Mellitus. ADA recommended reference range Performed By: #### S CAN CBC, BMP ####[place] [address] [place] [id number] [facility] Potassium [Moles/Vol] 4.3 mmol/L Normal 3.5-5.1 [facility] Comment on above: Performed By: #### S CAN CBC, BMP ####[address] Sodium [Moles/Vol] 130 mmol/L Low 136-145 [facility] Comment on above: Performed By: #### S CAN CBC, BMP ####[address] Urea nitrogen [Mass/Vol] 28 mg/dL High 7-25 [facility] Comment on above: Performed By: #### S CAN CBC, BMP ####[address] Scan and CBCon 11-15-2022 Basophils (Bld) [#/Vol] 0.0 10*3/uL Normal 0.0-0.2 [facility] Comment on above: Performed By: #### S CAN CBC, BMP ####[address] Basophils/100 WBC (Bld) 0.1 % Normal . [facility] Comment on above: Performed By: #### S CAN CBC, BMP ####[address] Eosinophils (Bld) [#/Vol] 0.2 10*3/uL Normal 0.0-0.45 [facility] Comment on above: Performed By: #### S CAN CBC, BMP ####[address] Eosinophils/100 WBC (Bld) 1.0 % Normal . [facility] Comment on above: Performed By: #### S CAN CBC, BMP ####[address] Erythrocyte distribution width (RBC) [Ratio] 13.7 % Normal 12.0-14.8 [facility] Comment on above: Performed By: #### S CAN CBC, BMP ####[address] Hematocrit (Bld) [Volume fraction] 30.3 % Low 38.8-50.0 [facility] Comment on above: Performed By: #### S CAN CBC, BMP ####[address] Hemoglobin (Bld) [Mass/Vol] 10.1 g/dL Low 13.0-17.0 [facility] Comment on above: Performed By: #### S CAN CBC, BMP ####[address] Hypochromasia Moderate Normal [facility] Comment on above: Performed By: #### S CAN CBC, BMP ####[address] Lymphocytes (Bld) [#/Vol] 1.9 10*3/uL Normal 1.00-4.8 [facility] Comment on above: Performed By: #### S CAN CBC, BMP ####[address] Lymphocytes/100 WBC (Bld) 7.8 % Normal . [facility] Comment on above: Performed By: #### S CAN CBC, BMP ####[address] MCH (RBC) [Entitic mass] 29.9 pg Normal 27.5-35.2 [facility] Comment on above: Performed By: #### S CAN CBC, BMP ####[address] MCV (RBC) [Entitic vol] 89.5 fL Normal 83.5-101 [facility] Comment on above: Performed By: #### S CAN CBC, BMP ####[address] Mean Corpuscular HGB Conc 33.4 g/dL Normal 32.5-35.6 [facility] Comment on above: Performed By: #### S CAN CBC, BMP ####[address] Monocytes (Bld) [#/Vol] 2.4 10*3/uL High 0.0-0.8 [facility] Comment on above: Performed By: #### S CAN CBC, BMP ####[place] [id number] [facility] Monocytes/100 WBC (Bld) 9.7 % Normal . [facility] Comment on above: Performed By: #### S CAN CBC, BMP ####[place] [id number] [facility] Neutrophils (Bld) [#/Vol] 20.4 10*3/uL High 1.8-7.7 [facility] Comment on above: Performed By: #### S CAN CBC, BMP ####[address] Neutrophils/100 WBC (Bld) 81.4 % Normal . [facility] Comment on above: Performed By: #### S CAN CBC, BMP ####[place] [id number] [facility] NRBC% 0.0 /100{WBC} Normal 0-0.5 [facility] Comment on above: Performed By: #### S CAN CBC, BMP ####[address] Platelet Estimate Normal Normal Normal [facility] Comment on above: Performed By: #### S CAN CBC, BMP ####[place] [id number] [facility] Platelet mean volume (Bld) [Entitic vol] 7.7 fL Normal 6.6-10.1 [facility] Comment on above: Performed By: #### S CAN CBC, BMP ####[place] [id number] [facility] Platelet Morphology Normal Normal Normal [facility] Comment on above: Result Comment: PERF ORMED BY:[address] [place], [place] [phone] MEDICAL ALEKSANDAR LAUREN M.D. Performed By: #### S CAN CBC, BMP ####[place] [id number] [place] Platelets (Bld) [#/Vol] 381 10*3/uL Normal 150-450 [facility] Comment on above: Performed By: #### S CAN CBC, BMP ####[address] Polychromasia Slight Normal [facility] Comment on above: Performed By: #### S CAN CBC, BMP ####[address] RBC (Bld) [#/Vol] 3.39 10*6/uL Low 3.90-5.60 [facility] Comment on above: Performed By: #### S CAN CBC, BMP ####[address] Stomatocytes Slight [facility] Comment on above: Performed By: #### S CAN CBC, BMP ####[address] Toxic Vacuolation Slight [facility] Comment on above: Performed By: #### S CAN CBC, BMP ####[address] WBC (Bld) [#/Vol] 25.0 10*3/uL High 4.1-10.5 [facility] Comment on above: Performed By: #### S CAN CBC, BMP ####[address] Toxic leukocyte vacuolation detectionOrdered By: Reginald Arroyo on 11-15-2022 Leukocyte toxic vacuoles LM Ql (Bld) Slight [facility] XR chest 1V portableon 11-15 XR chest 1V portable [facility] AFB Specimen Processingon AFB Specimen Processing [facility] Comment on above: Performed By: #### A FBCS RES1, MYC CULT ####[facility] ,#### FS ####[address] Anisocytosis LM Ql (Bld)Orde red By: Reginald Arroyo on 11-14-2022 Anisocytosis Ql (Bld) Slight [facility] Arterial Blood Gason 023 ABG Base Excess 8.5 mmol/L High -3.0-3.0 [facility] Comment on above: Performed By: #### A BG ####Point of Care testing, ABG Frac Inspired O2 85 % [facility] Comment on above: Performed By: #### A BG ####Point of Care testing, ABG Oxygen Content 7.2 mmol/L Normal 6.6-9.7 [facility] Comment on above: Performed By: #### A BG ####Point of Care testing, ABG Oxygen Saturation 93.3 % Low 95.0-100.0 [facility] Comment on above: Performed By: #### A BG ####Point of Care testing, ABG PCO2 47.2 mm[Hg] High 35.0-45.0 [facility] Comment on above: Performed By: #### A BG ####Point of Care testing, ABG PEEP 8 [facility] Comment on above: Performed By: #### A BG ####Point of Care testing, ABG PH 7.47 High 7.35-7.45 [facility] Comment on above: Performed By: #### A BG ####Point of Care testing, ABG PO2 68.0 mm[Hg] Low 80.0-100.0 [facility] Comment on above: Performed By: #### A BG ####Point of Care testing, ABG TV 500 mL [facility] Comment on above: Performed By: #### A BG ####Point of Care testing, CO2 [Moles/Vol] 34.8 mmol/L High 23.0-27.0 [facility] Comment on above: Performed By: #### A BG ####Point of Care testing, HCO3 (Bld) [Moles/Vol] 33.3 mmol/L High 23.0-29.0 [facility] Comment on above: Performed By: #### A BG ####Point of Care testing, Respiratory Critical [facility] Comment on above: Result Comment: Crit ical Value called on: 11/14/2022 at 04:56PERFORMED BY:[facility] [place], [place] [phone] MEDICAL DIRECTORNATI LAUREN M.D. Performed By: #### A BG ####Point of Care testing, Set Respiratory Rate 20 [facility] Comment on above: Performed By: #### A BG ####Point of Care testing, VBG Draw Site Left Radial [facility] Comment on above: Performed By: #### A BG ####Point of Care testing, Ventilator Mode AC [facility] Comment on above: Performed By: #### A BG ####Point of Care testing, Basic Metabolic Panelon 05 Anion gap [Moles/Vol] 11.5 mmol/L Normal 6.0-15.0 [facility] Comment on above: Performed By: #### D IFF CBC, BMP ####[facility] [address] [place] [address] [place] Calcium [Mass/Vol] 7.8 mg/dL Low 8.6-10.3 [facility] Comment on above: Performed By: #### D IFF CBC, BMP ####[facility] [address] [place] [address] [place] Chloride [Moles/Vol] 91 mmol/L Low 98-107 [facility] Comment on above: Performed By: #### D IFF CBC, BMP ####[facility] [address] [place] [address] [place] CO2 [Moles/Vol] 32.8 mmol/L High 21.0-31.0 [facility] Comment on above: Performed By: #### D IFF CBC, BMP ####[facility] [address] [place] [address] [place] Creatinine [Mass/Vol] 0.59 mg/dL Low 0.70-1.30 [facility] Comment on above: Performed By: #### D IFF CBC, BMP ####[facility] [address] [place] [address] [place] Creatinine Clr Calc Pharmacy 186.93 [facility] Comment on above: Result Comment: PERF ORMED BY:[place] [address] [place], [place] [phone] MEDICAL ALEKSANDAR LAUREN M.D. Performed By: #### D IFF CBC, BMP ####[facility] [address] [place] [address] [place] GFR/1.73 sq M.predicted MDRD (S/P/Bld) [Vol rate/Area] mL/min/{1.73_m2} [facility] Comment on above: Performed By: #### D IFF CBC, BMP ####[place] [address] [place] [address] [facility] Glucose [Mass/Vol] 105 mg/dL High 70-100 [facility] Comment on above: Result Comment: [facility] Glucose Reference Range is dependent on time and content of last meal. Glucose of more than 200 mg/dL in a nonstressed, ambulatory subject supports the diagnosis of Diabetes Mellitus. ADA recommended reference range Performed By: #### D IFF CBC, BMP ####[facility] [address] [place] [address] [facility] Potassium [Moles/Vol] 4.3 mmol/L Normal 3.5-5.1 [facility] Comment on above: Performed By: #### D IFF CBC, BMP ####[facility] [address] [place] [address] [place] Sodium [Moles/Vol] 131 mmol/L Significant change down 136-145 [facility] Comment on above: Performed By: #### D IFF CBC, BMP ####[facility] [address] [place] [address] [facility] Urea nitrogen [Mass/Vol] 22 mg/dL Normal 7-25 [facility] Comment on above: Performed By: #### D IFF CBC, BMP ####[address] [address] [facility] Bronch Cultureon 11-14-2022 Bronch Culture Normal [facility] Comment on above: Performed By: #### C UBR, ####[place] [id number] [facility] Diff and CBCon 11-14-2022 Anisocytosis Ql (Bld) Slight Normal [facility] Comment on above: Performed By: #### D IFF CBC, BMP ####[place] [id number] [facility] Eosinophils/100 WBC (Bld) 2 % Normal 1-3 [facility] Comment on above: Performed By: #### D IFF CBC, BMP ####[place] [id number] [facility] Erythrocyte distribution width (RBC) [Ratio] 13.7 % Normal 12.0-14.8 [facility] Comment on above: Performed By: #### D IFF CBC, BMP ####[place] [id number] [facility] Hematocrit (Bld) [Volume fraction] 34.1 % Low 38.8-50.0 [facility] Comment on above: Performed By: #### D IFF CBC, BMP ####[place] [id number] [facility] Hemoglobin (Bld) [Mass/Vol] 11.6 g/dL Low 13.0-17.0 [facility] Comment on above: Performed By: #### D IFF CBC, BMP ####[place] [id number] [facility] Hypochromasia Slight Normal [facility] Comment on above: Performed By: #### D IFF CBC, BMP ####[place] [id number] [facility] Lymphocytes/100 WBC (Bld) 9 % Low 18-42 [facility] Comment on above: Performed By: #### D IFF CBC, BMP ####[place] [id number] [facility] MCH (RBC) [Entitic mass] 30.3 pg Normal 27.5-35.2 [facility] Comment on above: Performed By: #### D IFF CBC, BMP ####[address] MCV (RBC) [Entitic vol] 89.3 fL Normal 83.5-101 [facility] Comment on above: Performed By: #### D IFF CBC, BMP ####[address] Mean Corpuscular HGB Conc 33.9 g/dL Normal 32.5-35.6 [facility] Comment on above: Performed By: #### D IFF CBC, BMP ####[address] Metamyelocytes 2 % High 0-0 [facility] Comment on above: Performed By: #### D IFF CBC, BMP ####[address] Monocytes/100 WBC (Bld) 8 % Normal 2-11 [facility] Comment on above: Performed By: #### D IFF CBC, BMP ####[address] Myelocytes 1 % High 0-0 [facility] Comment on above: Performed By: #### D IFF CBC, BMP ####[place] [id number] [facility] Platelet Estimate Normal Normal Normal [facility] Comment on above: Result Comment: PERF ORMED BY:[address] [place], [place] [phone] MEDICAL ALEKSANDAR LAUREN M.D. Performed By: #### D IFF CBC, BMP ####[address] Platelet mean volume (Bld) [Entitic vol] 7.3 fL Normal 6.6-10.1 [facility] Comment on above: Performed By: #### D IFF CBC, BMP ####[facility] [address] [place] [address] [facility] Platelet Morphology Normal Normal Normal [facility] Comment on above: Result Comment: PERF ORMED BY:[place] [address] [place] [place], [place] [phone] MEDICAL ALEKSANDAR LAUREN M.D. Performed By: #### D IFF CBC, BMP ####[place] [address] [place] [address] [facility] Platelets (Bld) [#/Vol] 445 10*3/uL Normal 150-450 [facility] Comment on above: Performed By: #### D IFF CBC, BMP ####[address] [address] [facility] Poikilocytosis Slight Normal [facility] Comment on above: Performed By: #### D IFF CBC, BMP ####[place] [id number] [facility] Polychromasia Slight Normal [facility] Comment on above: Performed By: #### D IFF CBC, BMP ####[address] [address] [facility] RBC (Bld) [#/Vol] 3.82 10*6/uL Low 3.90-5.60 [facility] Comment on above: Performed By: #### D IFF CBC, BMP ####[place] [id number] [facility] Segmented neutrophils/100 WBC (Bld) 79 % High 50-70 [facility] Comment on above: Performed By: #### D IFF CBC, BMP ####[address] [address] [facility] Stomatocytes Slight Normal [facility] Comment on above: Performed By: #### D IFF CBC, BMP ####[place] [place] [address] [facility] Target Cells Slight Normal [facility] Comment on above: Performed By: #### D IFF CBC, BMP ####[place] [id number] [facility] WBC (Bld) [#/Vol] 21.5 10*3/uL High 4.1-10.5 [facility] Comment on above: Performed By: #### D IFF CBC, BMP ####[place] [id number] [facility] Eosinophils/100 WBC Manual c nt (Bld)Ordered By: Reginald Arroyo on 11-14-2022 Eosinophils/100 WBC (Bld) 2 % 1-3 [facility] Fungal Smearon 11-14-2022 Fungal Smear Fungus Smear Results No Yeast Like Elements Seen No Fungal Like Elements Seen PERFORMED BY: [facility] [address] [place] [id number] PATHOLOGIST SEWER AND INSPECTOR NATI LAUREN M.D. [facility] Comment on above: Performed By: #### A FBCS RES1, MYC CULT ####[facility] ,#### FS ####[place] [id number] [facility] Fungus (Mycology) Cultureon 11-14-2022 Fungus (Mycology) Culture [facility] Comment on above: Performed By: #### A FBCS RES1, MYC CULT ####[facility] ,#### FS ####[place] [id number] [place] Glucose Poct Glucometerson 0 11-14-2022 Glucose [Mass/Vol] 87 mg/dL [facility] Comment on above: Result Comment: [facility] Glucose Reference Range is dependent on time and content of last meal. Glucose of more than 200 mg/dL in a nonstressed, ambulatory subject supports the diagnosis of Diabetes Mellitus.PERFORMED BY:[place] [address] [place], [place] [phone] MEDICAL DIRECTORNATI LAUREN M.D. Performed By: #### G LULS ####Point of Care testing, Gram Stainon 11-14-2022 Microscopic observation Gram stain Nom (Unsp spec) Gram Stain Result 3+ White Blood Cells 3+ Gram Positive Bacilli 1FPC PERFORMED BY: [facility] [address] [place] [address] PATHOLOGIST SEWER AND INSPECTOR NATI LAUREN M.D. Normal [facility] Comment on above: Performed By: #### C UBR, ####[facility] [address] [place] [address] [facility] Lymphocytes/100 WBC Manual c nt (Bld)Ordered By: Reginald Arroyo on 11-14-2022 Lymphocytes/100 WBC (Bld) 9 % 18-42 [facility] Metamyelocytes/100 WBC Manua l cnt (Bld)Ordered By: Reginald Arroyo on 11-14-2022 Metamyelocytes/100 WBC (Bld) 2 % 0-0 [facility] Monocytes/100 WBC Manual cnt (Bld)Ordered By: Reginald Arroyo on 11-14-2022 Monocytes/100 WBC (Bld) 8 % 2-11 [facility] Myelocytes/100 WBC Manual cn t (Bld)Ordered By: Reginald Arroyo on 11-14-2022 Myelocytes/100 WBC (Bld) 1 % 0-0 [facility] Segmented neutrophils/100 WB C Manual cnt (Bld)Ordered By: Reginald Arroyo on 11-14-2022 Segmented neutrophils/100 WBC (Bld) 79 % 50-70 [facility] Target cellsOrdered By: Chri yamileth Arroyo on 11-14-2022 Target cells LM Ql (Bld) Slight [facility] Triglycerideson 11-14-2022 Triglyceride [Mass/Vol] 144 mg/dL Normal 0-149 [facility] Comment on above: Order Comment: Comme nt please run off blood drawn this morning Result Comment: TRIG ATP III CLASSIFICATION TRIG less than 150 mg/dL Normal TRIG 150-199 mg/dL Borderline high TRIG 200-500 mg/dL High TRIG greater than 500 mg/dL Very high Standard traceable to the Center for Disease Conrtrol and Prevention (CDC) test method.PERFORMED BY:[facility] [place], [place] [phone] MEDICAL DIRECTORNATI LAUREN M.D. Performed By: #### T RIG ####[facility] [address] [place] [address] [facility] US venous duplex LE BIon US venous duplex LE BI Normal [facility] XR chest 1V portableon 11-14 XR chest 1V portable Normal [facility] XR chest 1V portable Normal [facility] Arterial Blood Gason 023 ABG Base Excess 10.0 mmol/L High -3.0-3.0 [facility] Comment on above: Performed By: #### A BG ####Point of Care testing, ABG Frac Inspired O2 60 % [facility] Comment on above: Performed By: #### A BG ####Point of Care testing, ABG Oxygen Content 7.3 mmol/L Normal 6.6-9.7 [facility] Comment on above: Performed By: #### A BG ####Point of Care testing, ABG Oxygen Saturation 90.3 % Low 95.0-100.0 [facility] Comment on above: Performed By: #### A BG ####Point of Care testing, ABG PCO2 52.0 mm[Hg] Off scale high 35.0-45.0 [facility] Comment on above: Performed By: #### A BG ####Point of Care testing, ABG PEEP 8 [facility] Comment on above: Performed By: #### A BG ####Point of Care testing, ABG PH 7.45 Normal 7.35-7.45 [facility] Comment on above: Performed By: #### A BG ####Point of Care testing, ABG PO2 58.1 mm[Hg] Low 80.0-100.0 [facility] Comment on above: Performed By: #### A BG ####Point of Care testing, ABG TV 500 mL [facility] Comment on above: Performed By: #### A BG ####Point of Care testing, CO2 [Moles/Vol] 37.2 mmol/L High 23.0-27.0 [facility] Comment on above: Performed By: #### A BG ####Point of Care testing, HCO3 (Bld) [Moles/Vol] 35.6 mmol/L High 23.0-29.0 [facility] Comment on above: Performed By: #### A BG ####Point of Care testing, Respiratory Critical [facility] Comment on above: Result Comment: Crit ical Value called on: 11/13/2022 at 05:00PERFORMED BY:[address] [place], [place] [phone] MEDICAL DIRECTORNATI LAUREN M.D. Performed By: #### A BG ####Point of Care testing, Set Respiratory Rate 20 [facility] Comment on above: Performed By: #### A BG ####Point of Care testing, VBG Draw Site Right Radial [facility] Comment on above: Performed By: #### A BG ####Point of Care testing, Ventilator Mode AC [facility] Comment on above: Performed By: #### A BG ####Point of Care testing, Basic Metabolic Panelon 05 Anion gap [Moles/Vol] 7.9 mmol/L Normal 6.0-15.0 [facility] Comment on above: Performed By: #### S CAN CBC, BMP ####[facility] Jcn[address] [place] [address] [facility] Calcium [Mass/Vol] 8.0 mg/dL Low 8.6-10.3 [facility] Comment on above: Performed By: #### S CAN CBC, BMP ####[facility] Xlx5231 [place] [address] [place] Chloride [Moles/Vol] 96 mmol/L Low 98-107 [facility] Comment on above: Performed By: #### S CAN CBC, BMP ####[facility] Gqy[address] [place] [address] [place] CO2 [Moles/Vol] 37.5 mmol/L High 21.0-31.0 [facility] Comment on above: Performed By: #### S CAN CBC, BMP ####[facility] Tif[address] [place] [address] [facility] Creatinine [Mass/Vol] 0.42 mg/dL Low 0.70-1.30 [facility] Comment on above: Performed By: #### S CAN CBC, BMP ####[facility] Gov[address] [place] [address] [place] Creatinine Clr Calc Pharmacy 263.49 [facility] Comment on above: Result Comment: PERF ORMED BY:[address] [place], [place] [phone] MEDICAL DIRECTORNATI LAUREN M.D. Performed By: #### S CAN CBC, BMP ####[facility] [place] [address] [place] GFR/1.73 sq M.predicted MDRD (S/P/Bld) [Vol rate/Area] mL/min/{1.73_m2} [facility] Comment on above: Performed By: #### S CAN CBC, BMP ####[address] [place] [address] [facility] Glucose [Mass/Vol] 93 mg/dL Normal 70-100 [facility] Comment on above: Result Comment: [facility] Glucose Reference Range is dependent on time and content of last meal. Glucose of more than 200 mg/dL in a nonstressed, ambulatory subject supports the diagnosis of Diabetes Mellitus. ADA recommended reference range Performed By: #### S CAN CBC, BMP ####[facility] Rhb[address] [place] [address] [facility] Potassium [Moles/Vol] 4.4 mmol/L Normal 3.5-5.1 [facility] Comment on above: Performed By: #### S CAN CBC, BMP ####[facility] Frn[address] [place] [address] [facility] Sodium [Moles/Vol] 137 mmol/L Normal 136-145 [facility] Comment on above: Performed By: #### S CAN CBC, BMP ####[facility] Hsa[address]233 [place] [address] [facility] Urea nitrogen [Mass/Vol] 20 mg/dL Normal 7-25 [facility] Comment on above: Performed By: #### S CAN CBC, BMP ####[facility] Ghy[address] [place] [address] [facility] Glucose Poct Glucometerson 0 11-13-2022 Commemt1 Glu2: Cleaned Meter [facility] Comment on above: Result Comment: PERF ORMED BY:[address] [place], [place] [phone] MEDICAL DIRECTORNATI LAUREN M.D. Performed By: #### G LULS ####Point of Care testing, Glucose [Mass/Vol] 121 mg/dL Normal [facility] Comment on above: Result Comment: [place] [facility] Glucose Reference Range is dependent on time and content of last meal. Glucose of more than 200 mg/dL in a nonstressed, ambulatory subject supports the diagnosis of Diabetes Mellitus. Performed By: #### G LULS ####Point of Care testing, Commemt1 Glu2: Cleaned Meter [facility] Comment on above: Result Comment: PERF ORMED BY:[address] [address] [place], [place] [phone] MEDICAL ALEKSANDAR LAUREN M.D. Performed By: #### G LULS ####Point of Care testing, Glucose [Mass/Vol] 87 mg/dL Normal [facility] Comment on above: Result Comment: [place] om Glucose Reference Range is dependent on time and content of last meal. Glucose of more than 200 mg/dL in a nonstressed, ambulatory subject supports the diagnosis of Diabetes Mellitus. Performed By: #### G LULS ####Point of Care testing, Commemt1 Glu2: Cleaned Meter [facility] Comment on above: Result Comment: PERF ORMED BY:[address] [place], [place] [phone] MEDICAL DIRECTORNATI LAUREN M.D. Performed By: #### G LULS ####Point of Care testing, Glucose [Mass/Vol] 96 mg/dL Normal [facility] Comment on above: Result Comment: [place] om Glucose Reference Range is dependent on time and content of last meal. Glucose of more than 200 mg/dL in a nonstressed, ambulatory subject supports the diagnosis of Diabetes Mellitus. Performed By: #### G LULS ####Point of Care testing, Commemt1 Glu2: Cleaned Meter Normal [facility] Comment on above: Result Comment: PERF ORMED BY:[address] [place], [place] [phone] MEDICAL DIRECTORNATI LAUREN M.D. Performed By: #### G LULS ####Point of Care testing, Glucose [Mass/Vol] 111 mg/dL Normal [facility] Comment on above: Result Comment: [place] Glucose Reference Range is dependent on time and content of last meal. Glucose of more than 200 mg/dL in a nonstressed, ambulatory subject supports the diagnosis of Diabetes Mellitus. Performed By: #### G LULS ####Point of Care testing, Scan and CBCon 11-13-2022 Basophils (Bld) [#/Vol] 0.2 10*3/uL Normal 0.0-0.2 [facility] Comment on above: Performed By: #### S CAN CBC, BMP ####[address] [address] [facility] Basophils/100 WBC (Bld) 1.2 % Normal . [facility] Comment on above: Performed By: #### S CAN CBC, BMP ####[facility] [address] [place] [address] [place] Eosinophils (Bld) [#/Vol] 0.3 10*3/uL Normal 0.0-0.45 [facility] Comment on above: Performed By: #### S CAN CBC, BMP ####[address] [address] [facility] Eosinophils/100 WBC (Bld) 2.0 % Normal . [facility] Comment on above: Performed By: #### S CAN CBC, BMP ####[place] [id number] [facility] Erythrocyte distribution width (RBC) [Ratio] 14.3 % Normal 12.0-14.8 [facility] Comment on above: Performed By: #### S CAN CBC, BMP ####[facility] [address] [place], [place] [address] [facility] Hematocrit (Bld) [Volume fraction] 30.0 % Low 38.8-50.0 [facility] Comment on above: Performed By: #### S CAN CBC, BMP ####[address] Hemoglobin (Bld) [Mass/Vol] 9.8 g/dL Low 13.0-17.0 [facility] Comment on above: Performed By: #### S CAN CBC, BMP ####[place] [id number] [facility] Hypochromasia Moderate Normal [facility] Comment on above: Performed By: #### S CAN CBC, BMP ####[address] Lymphocytes (Bld) [#/Vol] 3.0 10*3/uL Normal 1.00-4.8 [facility] Comment on above: Performed By: #### S CAN CBC, BMP ####[place] [id number] [facility] Lymphocytes/100 WBC (Bld) 19.1 % Normal . [facility] Comment on above: Performed By: #### S CAN CBC, BMP ####[id number] [facility] MCH (RBC) [Entitic mass] 29.6 pg Normal 27.5-35.2 [facility] Comment on above: Performed By: #### S CAN CBC, BMP ####[place] [id number] [facility] MCV (RBC) [Entitic vol] 90.9 fL Normal 83.5-101 [facility] Comment on above: Performed By: #### S CAN CBC, BMP ####[address] [place] [address] [facility] Mean Corpuscular HGB Conc 32.6 g/dL Normal 32.5-35.6 [facility] Comment on above: Performed By: #### S CAN CBC, BMP ####[address] [address] [facility] Monocytes (Bld) [#/Vol] 1.2 10*3/uL High 0.0-0.8 [facility] Comment on above: Performed By: #### S CAN CBC, BMP ####[address] [address] [facility] Monocytes/100 WBC (Bld) 7.7 % Normal . [facility] Comment on above: Performed By: #### S CAN CBC, BMP ####[address] [address] [facility] Neutrophils (Bld) [#/Vol] 11.1 10*3/uL High 1.8-7.7 [facility] Comment on above: Performed By: #### S CAN CBC, BMP ####[id number] [facility] Neutrophils/100 WBC (Bld) 70.0 % Normal . [facility] Comment on above: Performed By: #### S CAN CBC, BMP ####[address] [address] [facility] NRBC% 0.1 /100{WBC} Normal 0-0.5 [facility] Comment on above: Performed By: #### S CAN CBC, BMP ####[address] [address] [facility] Platelet Estimate Normal Normal Normal [facility] Comment on above: Performed By: #### S CAN CBC, BMP ####[address] [address] [facility] Platelet mean volume (Bld) [Entitic vol] 7.0 fL Normal 6.6-10.1 [facility] Comment on above: Performed By: #### S CAN CBC, BMP ####[place] [address] [facility] Platelet Morphology Normal Normal Normal [facility] Comment on above: Result Comment: PERF ORMED BY:[address] [place], [place] [phone] MEDICAL DIRECTORNATI LAUREN M.D. Performed By: #### S CAN CBC, BMP ####[place] [id number] [facility] Platelets (Bld) [#/Vol] 435 10*3/uL Normal 150-450 [facility] Comment on above: Performed By: #### S CAN CBC, BMP ####[address] Polychromasia Slight Normal [facility] Comment on above: Performed By: #### S CAN CBC, BMP ####[address] RBC (Bld) [#/Vol] 3.30 10*6/uL Low 3.90-5.60 [facility] Comment on above: Performed By: #### S CAN CBC, BMP ####[address] Stomatocytes Slight Normal [facility] Comment on above: Performed By: #### S CAN CBC, BMP ####[place] [id number] [facility] WBC (Bld) [#/Vol] 15.9 10*3/uL High 4.1-10.5 [facility] Comment on above: Performed By: #### S CAN CBC, BMP ####[place] [id number] [facility] XR chest 1V portableon 11-13 XR chest 1V portable Normal [facility] Arterial Blood Gason 023 ABG Base Excess 7.5 mmol/L High -3.0-3.0 [facility] Comment on above: Performed By: #### A BG ####Point of Care testing, ABG Frac Inspired O2 45 % Normal [facility] Comment on above: Performed By: #### A BG ####Point of Care testing, ABG Oxygen Content 6.3 mmol/L Low 6.6-9.7 [facility] Comment on above: Performed By: #### A BG ####Point of Care testing, ABG Oxygen Saturation 89.5 % Low 95.0-100.0 [facility] Comment on above: Performed By: #### A BG ####Point of Care testing, ABG PCO2 50.7 mm[Hg] Off scale high 35.0-45.0 [facility] Comment on above: Performed By: #### A BG ####Point of Care testing, ABG PEEP 8 [facility] Comment on above: Performed By: #### A BG ####Point of Care testing, ABG PH 7.43 Normal 7.35-7.45 [facility] Comment on above: Performed By: #### A BG ####Point of Care testing, ABG PO2 59.2 mm[Hg] Low 80.0-100.0 [facility] Comment on above: Performed By: #### A BG ####Point of Care testing, ABG TV 500 mL [facility] Comment on above: Performed By: #### A BG ####Point of Care testing, CO2 [Moles/Vol] 34.5 mmol/L High 23.0-27.0 [facility] Comment on above: Performed By: #### A BG ####Point of Care testing, HCO3 (Bld) [Moles/Vol] 33.0 mmol/L High 23.0-29.0 [facility] Comment on above: Performed By: #### A BG ####Point of Care testing, Respiratory Critical [facility] Comment on above: Result Comment: Crit ical Value called on: 11/12/2022 at 04:59PERFORMED BY:[address] [id number] [place], [place] [phone] MEDICAL DIRECTORNATI LAUREN M.D. Performed By: #### A BG ####Point of Care testing, Set Respiratory Rate 20 [facility] Comment on above: Performed By: #### A BG ####Point of Care testing, VBG Draw Site Right Radial [facility] Comment on above: Performed By: #### A BG ####Point of Care testing, Ventilator Mode AC [facility] Comment on above: Performed By: #### A BG ####Point of Care testing, Basic Metabolic Panelon 05-0 Anion gap [Moles/Vol] 7.0 mmol/L Normal 6.0-15.0 [facility] Comment on above: Performed By: #### B MP, DIFF CBC ####[address] [place] [address] [facility] Calcium [Mass/Vol] 7.7 mg/dL Low 8.6-10.3 [facility] Comment on above: Performed By: #### B MP, DIFF CBC ####[address] [address] [facility] Chloride [Moles/Vol] 99 mmol/L Normal 98-107 [facility] Comment on above: Performed By: #### B MP, DIFF CBC ####[address] [address] [facility] CO2 [Moles/Vol] 36.1 mmol/L High 21.0-31.0 [facility] Comment on above: Performed By: #### B MP, DIFF CBC ####[address] [place] [address] [facility] Creatinine [Mass/Vol] 0.39 mg/dL Low 0.70-1.30 [facility] Comment on above: Performed By: #### B MP, DIFF CBC ####[facility] [address] [place] [address] [place] Creatinine Clr Calc Pharmacy 278.31 [facility] Comment on above: Result Comment: PERF ORMED BY:[address] [place], [place] [phone] MEDICAL DIRECTORNATI LAUREN M.D. Performed By: #### B MP, DIFF CBC ####[address] [place] [address] [facility] GFR/1.73 sq M.predicted MDRD (S/P/Bld) [Vol rate/Area] mL/min/{1.73_m2} Normal [facility] Comment on above: Performed By: #### B MP, DIFF CBC ####[address] [place] [address] [facility] Glucose [Mass/Vol] 128 mg/dL High 70-100 [facility] Comment on above: Result Comment: [facility] Glucose Reference Range is dependent on time and content of last meal. Glucose of more than 200 mg/dL in a nonstressed, ambulatory subject supports the diagnosis of Diabetes Mellitus. ADA recommended reference range Performed By: #### B MP, DIFF CBC ####[address] [address] [facility] Potassium [Moles/Vol] 4.1 mmol/L Normal 3.5-5.1 [facility] Comment on above: Performed By: #### B MP, DIFF CBC ####[address] [address] [facility] Sodium [Moles/Vol] 138 mmol/L Normal 136-145 [facility] Comment on above: Performed By: #### B MP, DIFF CBC ####[address] [address] [facility] Urea nitrogen [Mass/Vol] 15 mg/dL Normal 7-25 [facility] Comment on above: Performed By: #### B MP, DIFF CBC ####[address] [place] [address] [place] Diff and CBCon 11-12-2022 Anisocytosis Ql (Bld) Slight Normal [facility] Comment on above: Performed By: #### B MP, DIFF CBC ####[address] [place] [address] [facility] Erythrocyte distribution width (RBC) [Ratio] 13.9 % Normal 12.0-14.8 [facility] Comment on above: Performed By: #### B MP, DIFF CBC ####[address] [address] [facility] Hematocrit (Bld) [Volume fraction] 29.5 % Low 38.8-50.0 [facility] Comment on above: Performed By: #### B MP, DIFF CBC ####[address] [address] [facility] Hemoglobin (Bld) [Mass/Vol] 9.9 g/dL Low 13.0-17.0 [facility] Comment on above: Performed By: #### B MP, DIFF CBC ####[place] [id number] [facility] Hypochromasia Moderate Normal [facility] Comment on above: Performed By: #### B MP, DIFF CBC ####[place] [id number] [facility] Lymphocytes/100 WBC (Bld) 13 % Low 18-42 [facility] Comment on above: Performed By: #### B MP, DIFF CBC ####[place] [id number] [facility] MCH (RBC) [Entitic mass] 30.5 pg Normal 27.5-35.2 [facility] Comment on above: Performed By: #### B MP, DIFF CBC ####[place] [id number] [facility] MCV (RBC) [Entitic vol] 91.1 fL Normal 83.5-101 [facility] Comment on above: Performed By: #### B MP, DIFF CBC ####[place] [id number] [facility] Mean Corpuscular HGB Conc 33.5 g/dL Normal 32.5-35.6 [facility] Comment on above: Performed By: #### B MP, DIFF CBC ####[place] [id number] [facility] Metamyelocytes 3 % High 0-0 [facility] Comment on above: Performed By: #### B MP, DIFF CBC ####[address] [place] [address] [facility] Monocytes/100 WBC (Bld) 4 % Normal 2-11 [facility] Comment on above: Performed By: #### B MP, DIFF CBC ####[place] [id number] [facility] Myelocytes 3 % High 0-0 [facility] Comment on above: Performed By: #### B MP, DIFF CBC ####[place] [id number] [facility] Platelet Estimate Normal Normal Normal [facility] Comment on above: Performed By: #### B MP, DIFF CBC ####[place] [id number] [facility] Platelet mean volume (Bld) [Entitic vol] 7.1 fL Normal 6.6-10.1 [facility] Comment on above: Result Comment: PERF ORMED BY:[address] [place], [place] [phone] MEDICAL DIRECTORNATI LAUREN M.D. Performed By: #### B MP, DIFF CBC ####[place] [id number] [facility] Platelet Morphology Normal Normal Normal [facility] Comment on above: Result Comment: PERF ORMED BY:[address] [place]fred[place], [place] [phone] MEDICAL DIRECTORNATI LAUREN M.D. Performed By: #### B MP, DIFF CBC ####[place] [id number] [facility] Platelets (Bld) [#/Vol] 375 10*3/uL Normal 150-450 [facility] Comment on above: Performed By: #### B MP, DIFF CBC ####[place] [id number] [facility] RBC (Bld) [#/Vol] 3.24 10*6/uL Low 3.90-5.60 [facility] Comment on above: Performed By: #### B MP, DIFF CBC ####[address] [place] [address] [facility] Segmented neutrophils/100 WBC (Bld) 78 % High 50-70 [facility] Comment on above: Performed By: #### B MP, DIFF CBC ####[facility] [place] [address] [facility] WBC (Bld) [#/Vol] 18.3 10*3/uL High 4.1-10.5 [facility] Comment on above: Performed By: #### B MP, DIFF CBC ####[place] [id number] [facility] Glucose Poct Glucometerson 0 11-12-2022 Commemt1 Glu2: Cleaned Meter Normal [facility] Comment on above: Result Comment: PERF ORMED BY:[address] [place], [place] [phone] MEDICAL DIRECTORNATI LAUREN M.D. Performed By: #### G LULS ####Point of Care testing, Glucose [Mass/Vol] 125 mg/dL Normal [facility] Comment on above: Result Comment: [facility] Glucose Reference Range is dependent on time and content of last meal. Glucose of more than 200 mg/dL in a nonstressed, ambulatory subject supports the diagnosis of Diabetes Mellitus. Performed By: #### G LULS ####Point of Care testing, Glucose [Mass/Vol] 133 mg/dL Normal [facility] Comment on above: Result Comment: [facility] Glucose Reference Range is dependent on time and content of last meal. Glucose of more than 200 mg/dL in a nonstressed, ambulatory subject supports the diagnosis of Diabetes Mellitus.PERFORMED BY:[address] [place], [place] [phone] MEDICAL DIRECTORNATI LAUREN M.D. Performed By: #### G LULS ####Point of Care testing, Commemt1 Glu2: Cleaned Meter Normal [facility] Comment on above: Result Comment: PERF ORMED BY:[address] [address] [address] [place], [place] [phone] MEDICAL DIRECTORNATI LAUREN M.D. Performed By: #### G LUBETY ####Point of Care testing, Glucose [Mass/Vol] 122 mg/dL [facility] Comment on above: Result Comment: [place] om Glucose Reference Range is dependent on time and content of last meal. Glucose of more than 200 mg/dL in a nonstressed, ambulatory subject supports the diagnosis of Diabetes Mellitus. Performed By: #### G LULS ####Point of Care testing, Commemt1 Glu2: Cleaned Meter [facility] Comment on above: Result Comment: PERF ORMED BY:[facility] NGOZIRosalbaAlfreditoALESTAR [place], [place] [phone] MEDICAL DIRECTORNATI LAUREN M.D. Performed By: #### G LULS ####Point of Care testing, Glucose [Mass/Vol] 120 mg/dL [facility] Comment on above: Result Comment: [place] om Glucose Reference Range is dependent on time and content of last meal. Glucose of more than 200 mg/dL in a nonstressed, ambulatory subject supports the diagnosis of Diabetes Mellitus. Performed By: #### G BENJAMIN ####Point of Care testing, XR chest 1V portableon 11-12 XR chest 1V portable [facility] XR chest 1V portable [facility] Arterial Blood Gason 023 ABG Base Excess 6.6 mmol/L High -3.0-3.0 [facility] Comment on above: Performed By: #### A BG ####Point of Care testing, ABG Frac Inspired O2 60 % [facility] Comment on above: Performed By: #### A BG ####Point of Care testing, ABG Oxygen Content 6.3 mmol/L Low 6.6-9.7 [facility] Comment on above: Performed By: #### A BG ####Point of Care testing, ABG Oxygen Saturation 91.6 % Low 95.0-100.0 [facility] Comment on above: Performed By: #### A BG ####Point of Care testing, ABG PCO2 48.7 mm[Hg] High 35.0-45.0 [facility] Comment on above: Performed By: #### A BG ####Point of Care testing, ABG PEEP 8 [facility] Comment on above: Performed By: #### A BG ####Point of Care testing, ABG PH 7.43 Normal 7.35-7.45 [facility] Comment on above: Performed By: #### A BG ####Point of Care testing, ABG PO2 63.6 mm[Hg] Low 80.0-100.0 [facility] Comment on above: Performed By: #### A BG ####Point of Care testing, ABG TV 500 mL [facility] Comment on above: Performed By: #### A BG ####Point of Care testing, CO2 [Moles/Vol] 33.3 mmol/L High 23.0-27.0 [facility] Comment on above: Performed By: #### A BG ####Point of Care testing, HCO3 (Bld) [Moles/Vol] 31.8 mmol/L High 23.0-29.0 [facility] Comment on above: Performed By: #### A BG ####Point of Care testing, Respiratory [facility] Comment on above: Result Comment: Crit ical Value called on: 11/11/2022 at 05:36PERFORMED BY:[address] [place] [place], [place] [phone] MEDICAL DIRECTORNATI LAUREN M.D. Performed By: #### A BG ####Point of Care testing, Set Respiratory Rate 20 [facility] Comment on above: Performed By: #### A BG ####Point of Care testing, VBG Draw Site Right Radial [facility] Comment on above: Performed By: #### A BG ####Point of Care testing, Ventilator Mode AC [facility] Comment on above: Performed By: #### A BG ####Point of Care testing, Basic Metabolic Panelon 05-0 Anion gap [Moles/Vol] 7.7 mmol/L Normal 6.0-15.0 [facility] Comment on above: Performed By: #### T BLACK BMP, DIFF CBC ####[facility] [address] [place] [address] [facility] Calcium [Mass/Vol] 7.5 mg/dL Low 8.6-10.3 [facility] Comment on above: Performed By: #### T RIG BMP, DIFF CBC ####[address] [address] [facility] Chloride [Moles/Vol] 99 mmol/L Normal 98-107 [facility] Comment on above: Performed By: #### T BLACK BMP, DIFF CBC ####[address] [place] [address] [facility] CO2 [Moles/Vol] 34.3 mmol/L High 21.0-31.0 [facility] Comment on above: Performed By: #### T BLACK BMP, DIFF CBC ####[place] [id number] [facility] Creatinine [Mass/Vol] 0.36 mg/dL Low 0.70-1.30 [facility] Comment on above: Performed By: #### T BLACK BMP, DIFF CBC ####[address] [address] [place] Creatinine Clr Calc Pharmacy 301.11 [facility] Comment on above: Performed By: #### T BLACK BMP, DIFF CBC ####[facility] [id number] [place] [address] [place] GFR/1.73 sq M.predicted MDRD (S/P/Bld) [Vol rate/Area] mL/min/{1.73_m2} [facility] Comment on above: Performed By: #### T RIG BMP, DIFF CBC ####[address] [address] [facility] Glucose [Mass/Vol] 108 mg/dL High 70-100 [facility] Comment on above: Result Comment: [place] om Glucose Reference Range is dependent on time and content of last meal. Glucose of more than 200 mg/dL in a nonstressed, ambulatory subject supports the diagnosis of Diabetes Mellitus. ADA recommended reference range Performed By: #### T RIG, BMP, DIFF CBC ####[facility] [address] [place] [id number] [facility] Potassium [Moles/Vol] 4.0 mmol/L Normal 3.5-5.1 [facility] Comment on above: Performed By: #### T RIG, BMP, DIFF CBC ####[place] [id number] [facility] Sodium [Moles/Vol] 137 mmol/L Normal 136-145 [facility] Comment on above: Performed By: #### T RIG BMP, DIFF CBC ####[place] [id number] [facility] Urea nitrogen [Mass/Vol] 14 mg/dL Normal 7-25 [facility] Comment on above: Performed By: #### T RIG, BMP, DIFF CBC ####[place] [id number] [facility] Diff and CBCon 11-11-2022 Anisocytosis Ql (Bld) Slight Normal [facility] Comment on above: Performed By: #### T RIG, BMP, DIFF CBC ####[place] [id number] [facility] Eosinophils/100 WBC (Bld) 2 % Normal 1-3 [facility] Comment on above: Performed By: #### T RIG, BMP, DIFF CBC ####[facility] [address] [place] [address] [facility] Erythrocyte distribution width (RBC) [Ratio] 14.3 % Normal 12.0-14.8 [facility] Comment on above: Performed By: #### T RIG, BMP, DIFF CBC ####[facility] [place] [address] [facility] Hematocrit (Bld) [Volume fraction] 31.2 % Low 38.8-50.0 [facility] Comment on above: Performed By: #### T RIG, BMP, DIFF CBC ####[place] [id number] [facility] Hemoglobin (Bld) [Mass/Vol] 10.2 g/dL Low 13.0-17.0 [facility] Comment on above: Performed By: #### T RIG, BMP, DIFF CBC ####[place] [id number] [facility] Hypochromasia Moderate Normal [facility] Comment on above: Performed By: #### T RIG, BMP, DIFF CBC ####[place] [id number] [facility] Lymphocytes/100 WBC (Bld) 11 % Low 18-42 [facility] Comment on above: Performed By: #### T RIG, BMP, DIFF CBC ####[place] [id number] [facility] MCH (RBC) [Entitic mass] 29.9 pg Normal 27.5-35.2 [facility] Comment on above: Performed By: #### T RIG, BMP, DIFF CBC ####[address] MCV (RBC) [Entitic vol] 91.8 fL Normal 83.5-101 [facility] Comment on above: Performed By: #### T RIG, BMP, DIFF CBC ####[place] [id number] [facility] Mean Corpuscular HGB Conc 32.6 g/dL Normal 32.5-35.6 [facility] Comment on above: Performed By: #### T RIG, BMP, DIFF CBC ####[place] [id number] [facility] Metamyelocytes 2 % High 0-0 [facility] Comment on above: Performed By: #### T RIG, BMP, DIFF CBC ####[place] [id number] [facility] Monocytes/100 WBC (Bld) 6 % Normal 2-11 [facility] Comment on above: Performed By: #### T RIG, BMP, DIFF CBC ####[place] [id number] [facility] Myelocytes 1 % High 0-0 [facility] Comment on above: Performed By: #### T RIG, BMP, DIFF CBC ####[address] [address] [facility] Platelet Estimate Normal Normal Normal [facility] Comment on above: Performed By: #### T RIG, BMP, DIFF CBC ####[place] [id number] [facility] Platelet mean volume (Bld) [Entitic vol] 6.8 fL Normal 6.6-10.1 [facility] Comment on above: Result Comment: PERF ORMED BY:[address] [place], [place] [phone] MEDICAL ALEKSANDAR LAUREN M.D. Performed By: #### T RIG, BMP, DIFF CBC ####[address] Platelet Morphology Normal Normal Normal [facility] Comment on above: Result Comment: PERF ORMED BY:[address] SOSANEW [place], [place] [phone] MEDICAL DIRECTORNATI LAUREN M.D. Performed By: #### T RIG, BMP, DIFF CBC ####[place] [id number] [facility] Platelets (Bld) [#/Vol] 401 10*3/uL Normal 150-450 [facility] Comment on above: Performed By: #### T RIG, BMP, DIFF CBC ####[place] [id number] [facility] Polychromasia Slight Normal [facility] Comment on above: Performed By: #### T RIG, BMP, DIFF CBC ####[place] [id number] [facility] RBC (Bld) [#/Vol] 3.40 10*6/uL Low 3.90-5.60 [facility] Comment on above: Performed By: #### T RIG, BMP, DIFF CBC ####[address] [place] [address] [facility] Segmented neutrophils/100 WBC (Bld) 79 % High 50-70 [facility] Comment on above: Performed By: #### T KERRI CLEANING, DIFF CBC ####[facility] [place] [address] [facility] WBC (Bld) [#/Vol] 19.1 10*3/uL High 4.1-10.5 [facility] Comment on above: Performed By: #### T KERRI CLEANING, DIFF CBC ####[facility] [place] [address] [facility] Glucose Poct Glucometerson 0 11-11-2022 Glucose [Mass/Vol] 156 mg/dL Normal [facility] Comment on above: Result Comment: [place] om Glucose Reference Range is dependent on time and content of last meal. Glucose of more than 200 mg/dL in a nonstressed, ambulatory subject supports the diagnosis of Diabetes Mellitus.PERFORMED BY:[address] [place]OCKAlfreditoALE, [place] [phone] MEDICAL DIRECTORNATI LAUREN M.D. Performed By: #### G LULS ####Point of Care testing, Commemt1 Glu2: Cleaned Meter [facility] Comment on above: Performed By: #### G LULS ####Point of Care testing, Commemt2 SLIDING SCALE COVERA Normal [facility] Comment on above: Result Comment: PERF ORMED BY:[address] [place], [place] [phone] MEDICAL DIRECTORNATI LAUREN M.D. Performed By: #### G LULS ####Point of Care testing, Glucose [Mass/Vol] 158 mg/dL Normal [facility] Comment on above: Result Comment: [place] om Glucose Reference Range is dependent on time and content of last meal. Glucose of more than 200 mg/dL in a nonstressed, ambulatory subject supports the diagnosis of Diabetes Mellitus. Performed By: #### G LULS ####Point of Care testing, Glucose [Mass/Vol] 97 mg/dL Normal [facility] Comment on above: Result Comment: [place] Glucose Reference Range is dependent on time and content of last meal. Glucose of more than 200 mg/dL in a nonstressed, ambulatory subject supports the diagnosis of Diabetes Mellitus.PERFORMED BY:[address] NGOZIRosalbaAlfreditoALE, [place] [phone] MEDICAL DIRECTORNATI LAUREN M.D. Performed By: #### G LULS ####Point of Care testing, Magnesiumon 11-11-2022 Magnesium [Mass/Vol] 2.2 mg/dL Normal 1.9-2.7 [facility] Comment on above: Order Comment: Comme nt please run off blood drawn this morning Result Comment: PERF ORMED BY:[address] [place], [place] [phone] MEDICAL DIRECTORNATI LAUREN M.D. Performed By: #### M G ####[address] [address] [facility] No Panel InformationOrdered By: Rubi Ramos on 11-11-2022 Bedside Glucose #2 Comment Sliding scale covera [facility] Triglycerideson 11-11-2022 Triglyceride [Mass/Vol] 143 mg/dL Normal 0-149 [facility] Comment on above: Result Comment: TRIG ATP III CLASSIFICATION TRIG less than 150 mg/dL Normal TRIG 150-199 mg/dL Borderline high TRIG 200-500 mg/dL High TRIG greater than 500 mg/dL Very high Standard traceable to the Center for Disease Conrtrol and Prevention (CDC) test method.PERFORMED BY:[address] [place], [place] [phone] MEDICAL DIRECTORNATI LAUREN M.D. Performed By: #### T RIG, BMP, DIFF CBC ####[facility] [address] [place] [address] [facility] XR chest 1V portableon 11-11 XR chest 1V portable Normal [facility] Arterial Blood Gason 023 ABG Base Excess 8.6 mmol/L High -3.0-3.0 [facility] Comment on above: Performed By: #### A BG ####Point of Care testing, ABG Frac Inspired O2 40 % Normal [facility] Comment on above: Performed By: #### A BG ####Point of Care testing, ABG Oxygen Content 6.6 mmol/L Normal 6.6-9.7 [facility] Comment on above: Performed By: #### A BG ####Point of Care testing, ABG Oxygen Saturation 92.0 % Low 95.0-100.0 [facility] Comment on above: Performed By: #### A BG ####Point of Care testing, ABG PCO2 47.0 mm[Hg] High 35.0-45.0 [facility] Comment on above: Performed By: #### A BG ####Point of Care testing, ABG PEEP 6 [facility] Comment on above: Performed By: #### A BG ####Point of Care testing, ABG PH 7.47 High 7.35-7.45 [facility] Comment on above: Performed By: #### A BG ####Point of Care testing, ABG PO2 61.7 mm[Hg] Low 80.0-100.0 [facility] Comment on above: Performed By: #### A BG ####Point of Care testing, ABG TV 500 mL [facility] Comment on above: Performed By: #### A BG ####Point of Care testing, CO2 [Moles/Vol] 34.8 mmol/L High 23.0-27.0 [facility] Comment on above: Performed By: #### A BG ####Point of Care testing, HCO3 (Bld) [Moles/Vol] 33.4 mmol/L High 23.0-29.0 [facility] Comment on above: Performed By: #### A BG ####Point of Care testing, Respiratory [facility] Comment on above: Result Comment: Crit ical Value called on: 11/10/2022 at 05:16PERFORMED BY:[facility] [place], [place] [phone] MEDICAL DIRECTORNATI LAUREN M.D. Performed By: #### A BG ####Point of Care testing, Set Respiratory Rate 20 Normal [facility] Comment on above: Performed By: #### A BG ####Point of Care testing, VBG Draw Site Left Brachial Normal [facility] Comment on above: Performed By: #### A BG ####Point of Care testing, Ventilator Mode AC [facility] Comment on above: Performed By: #### A BG ####Point of Care testing, Basic Metabolic Panelon 05-0 Anion gap [Moles/Vol] 7.5 mmol/L Normal 6.0-15.0 [facility] Comment on above: Performed By: #### D IFF CBC, BMP ####[facility] [address] [place] [address] [place] Calcium [Mass/Vol] 7.5 mg/dL Low 8.6-10.3 [facility] Comment on above: Performed By: #### D IFF CBC, BMP ####[facility] [address] [place] [address] [place] Chloride [Moles/Vol] 100 mmol/L Normal 98-107 [facility] Comment on above: Performed By: #### D IFF CBC, BMP ####[facility] [address] [place] [address] [place] CO2 [Moles/Vol] 34.4 mmol/L High 21.0-31.0 [facility] Comment on above: Performed By: #### D IFF CBC, BMP ####[facility] [address] [place] [address] [place] Creatinine [Mass/Vol] 0.40 mg/dL Low 0.70-1.30 [facility] Comment on above: Performed By: #### D IFF CBC, BMP ####[facility] [address] [place] [address] [place] Creatinine Clr Calc Pharmacy 271.94 [facility] Comment on above: Result Comment: PERF ORMED BY:[facility] [place], [place] [phone] MEDICAL DIRECTORNATI LAUREN M.D. Performed By: #### D IFF CBC, BMP ####[address] [place] [address] [place] GFR/1.73 sq M.predicted MDRD (S/P/Bld) [Vol rate/Area] mL/min/{1.73_m2} Normal [facility] Comment on above: Performed By: #### D IFF CBC, BMP ####[address] [place] [address] [facility] Glucose [Mass/Vol] 111 mg/dL High 70-100 [facility] Comment on above: Result Comment: [facility] Glucose Reference Range is dependent on time and content of last meal. Glucose of more than 200 mg/dL in a nonstressed, ambulatory subject supports the diagnosis of Diabetes Mellitus. ADA recommended reference range Performed By: #### D IFF CBC, BMP ####[address] [place] [address] [facility] Potassium [Moles/Vol] 3.9 mmol/L Normal 3.5-5.1 [facility] Comment on above: Performed By: #### D IFF CBC, BMP ####[address] [place] [address] [facility] Sodium [Moles/Vol] 138 mmol/L Normal 136-145 [facility] Comment on above: Performed By: #### D IFF CBC, BMP ####[address] [place] [address] [facility] Urea nitrogen [Mass/Vol] 19 mg/dL Normal 7-25 [facility] Comment on above: Performed By: #### D IFF CBC, BMP ####[facility] [address] [place] [address] [facility] Blood Cultureon 11-10-2022 Bacteria identified Cx Nom (Bld) NO GROWTH 5 DAYS PERFORMED BY: [facility] [address] [place] [address] PATHOLOGIST SEWER AND INSPECTOR NATI LAUREN M.D. Normal [facility] Comment on above: Performed By: #### C UBLD ####[address] Diff and CBCon 11-10-2022 Erythrocyte distribution width (RBC) [Ratio] 13.9 % Normal 12.0-14.8 [facility] Comment on above: Performed By: #### D IFF CBC, BMP ####[address] Hematocrit (Bld) [Volume fraction] 30.5 % Low 38.8-50.0 [facility] Comment on above: Performed By: #### D IFF CBC, BMP ####[address] Hemoglobin (Bld) [Mass/Vol] 10.0 g/dL Low 13.0-17.0 [facility] Comment on above: Performed By: #### D IFF CBC, BMP ####[address] Hypochromasia Moderate Normal [facility] Comment on above: Performed By: #### D IFF CBC, BMP ####[address] MCH (RBC) [Entitic mass] 29.9 pg Normal 27.5-35.2 [facility] Comment on above: Performed By: #### D IFF CBC, BMP ####[address] MCV (RBC) [Entitic vol] 91.2 fL Normal 83.5-101 [facility] Comment on above: Performed By: #### D IFF CBC, BMP ####[address] Mean Corpuscular HGB Conc 32.8 g/dL Normal 32.5-35.6 [facility] Comment on above: Performed By: #### D IFF CBC, BMP ####[address] Platelet Estimate Normal Normal Normal [facility] Comment on above: Performed By: #### D IFF CBC, BMP ####[address] [place] [address] [facility] Platelet mean volume (Bld) [Entitic vol] 6.9 fL Normal 6.6-10.1 [facility] Comment on above: Result Comment: PERF ORMED BY:[address] [place], [place] [phone] MEDICAL ALEKSANDAR LAUREN M.D. Performed By: #### D IFF CBC, BMP ####[address] [place] [address] [facility] Platelet Morphology Normal Normal Normal [facility] Comment on above: Result Comment: PERF ORMED BY:[address]OS[address]W [place], [place] [phone] MEDICAL DIRECTORNATI LAUREN M.D. Performed By: #### D IFF CBC, BMP ####[address] [address] [facility] Platelets (Bld) [#/Vol] 375 10*3/uL Normal 150-450 [facility] Comment on above: Performed By: #### D IFF CBC, BMP ####[address] [address] [facility] RBC (Bld) [#/Vol] 3.34 10*6/uL Low 3.90-5.60 [facility] Comment on above: Performed By: #### D IFF CBC, BMP ####[address] [address] [facility] Stomatocytes Slight Normal [facility] Comment on above: Performed By: #### D IFF CBC, BMP ####[address] [address] [facility] Target Cells Slight Normal [facility] Comment on above: Performed By: #### D IFF CBC, BMP ####[address] [place] [address] [facility] WBC (Bld) [#/Vol] 14.4 10*3/uL High 4.1-10.5 [facility] Comment on above: Performed By: #### D IFF CBC, BMP ####[address] [address] [facility] Dipstick and Microscopicon 0 11-10-2022 Appearance (U) Clear Normal Clear [facility] Comment on above: Order Comment: Name Collection Type:: Earl Catheter Performed By: #### A DDONUAPLUS ####[address] [address] [facility] Bacteria,Urine None Seen Normal None Seen [facility] Comment on above: Order Comment: Name Collection Type:: Earl Catheter Performed By: #### A DDONUAPLUS ####[address] [address] [facility] Bilirubin,Urine Negative Normal Negative [facility] Comment on above: Order Comment: Name Collection Type:: Earl Catheter Performed By: #### A DDONUAPLUS ####[address] [address] [facility] Color (U) Yellow Normal Yellow [facility] Comment on above: Order Comment: Name Collection Type:: Earl Catheter Performed By: #### A DDONUAPLUS ####[address] [address] [facility] Glucose Ql (U) Normal Normal Normal [facility] Comment on above: Order Comment: Name Collection Type:: Earl Catheter Performed By: #### A DDONUAPLUS ####[address] [address] [facility] Hyaline Casts,Urine None Seen Normal 0-8 [facility] Comment on above: Order Comment: Name Collection Type:: Earl Catheter Result Comment: PERF ORMED BY:[address] [place], [place] [phone] MEDICAL ALEKSANDAR LAUREN M.D. Performed By: #### A DDONUAPLUS ####[address] [address] [facility] Ketones Ql (U) Negative Normal Negative [facility] Comment on above: Order Comment: Name Collection Type:: Earl Catheter Performed By: #### A DDONUAPLUS ####[place] [id number] [facility] Leukocyte esterase Test strip Ql (U) Negative Normal Negative [facility] Comment on above: Order Comment: Name Collection Type:: Earl Catheter Performed By: #### A DDONUAPLUS ####[place] [id number] [facility] Nitrite,Urine Negative Normal Negative [facility] Comment on above: Order Comment: Name Collection Type:: Earl Catheter Performed By: #### A DDONUAPLUS ####[place] [id number] [facility] Occult Blood,Urine Trace High Negative [facility] Comment on above: Order Comment: Name Collection Type:: Earl Catheter Result Comment: PERF ORMED BY:[address] [place], [place] [phone] MEDICAL ALEKSANDAR LAUREN M.D. Performed By: #### A DDONUAPLUS ####[place] [id number] [facility] pH (U) 7.5 [pH] Normal 5.0-9.0 [facility] Comment on above: Order Comment: Name Collection Type:: Earl Catheter Performed By: #### A DDONUAPLUS ####[place] [id number] [facility] Protein,Urine Negative Normal Negative [facility] Comment on above: Order Comment: Name Collection Type:: Earl Catheter Performed By: #### A DDONUAPLUS ####[place] [id number] [facility] RBC,Urine 10-19 High 0-4 [facility] Comment on above: Order Comment: Name Collection Type:: Earl Catheter Performed By: #### A DDONUAPLUS ####[place] [id number] [facility] Specificy [place],Urine 1.016 Normal 1.001-1.03 0 [facility] Comment on above: Order Comment: Name Collection Type:: Earl Catheter Performed By: #### A DDONUAPLUS ####[address] [place] [address] [facility] Squamous Epithelial Cell,Urine 0-1 Normal 0-2 [facility] Comment on above: Order Comment: Name Collection Type:: Ealr Catheter Performed By: #### A DDONUAPLUS ####[address] [address] [facility] Urobilinogen,Urine Normal Normal Normal [facility] Comment on above: Order Comment: Name Collection Type:: Earl Catheter Performed By: #### A DDONUAPLUS ####[address] [address] [facility] WBC,Urine 3-4 Normal 0-4 [facility] Comment on above: Order Comment: Name Collection Type:: Earl Catheter Performed By: #### A DDONUAPLUS ####[address] [address] [facility] Glucose Poct Glucometerson 0 11-10-2022 Glucose [Mass/Vol] 147 mg/dL Normal [facility] Comment on above: Result Comment: [facility] [facility] Gl[facility] Reference Range is dependent on time and content of last meal. Glucose of more than 200 mg/dL in a nonstressed, ambulatory subject supports the diagnosis of Diabetes Mellitus.PERFORMED BY:[address] [place], [place] [phone] MEDICAL DIRECTORNATI LAUREN M.D. Performed By: #### G LULS ####Point of Care testing, Glucose [Mass/Vol] 129 mg/dL Normal [facility] Comment on above: Result Comment: [facility] Glucose Reference Range is dependent on time and content of last meal. Glucose of more than 200 mg/dL in a nonstressed, ambulatory subject supports the diagnosis of Diabetes Mellitus.PERFORMED BY:[address] [place], [place] [phone] MEDICAL DIRECTORNATI LAUREN M.D. Performed By: #### G BENJAMIN ####Point of Care testing, Glucose [Mass/Vol] 148 mg/dL Normal [facility] Comment on above: Result Comment: [facility] Glucose Reference Range is dependent on time and content of last meal. Glucose of more than 200 mg/dL in a nonstressed, ambulatory subject supports the diagnosis of Diabetes Mellitus.PERFORMED BY:[id number] [place] [place], [place] [phone] MEDICAL DIRECTORNATI LAUREN M.D. Performed By: #### G BENJAMIN ####Point of Care testing, XR chest 1V portableon 11-10 XR chest 1V portable Normal [facility] XR chest 1V portable Normal [facility] Arterial Blood Gason 023 ABG Base Excess 5.4 mmol/L High -3.0-3.0 [facility] Comment on above: Performed By: #### A BG ####Point of Care testing, ABG Frac Inspired O2 40 % [facility] Comment on above: Performed By: #### A BG ####Point of Care testing, ABG Oxygen Content 6.9 mmol/L Normal 6.6-9.7 [facility] Comment on above: Performed By: #### A BG ####Point of Care testing, ABG Oxygen Saturation 95.7 % Normal 95.0-100.0 [facility] Comment on above: Performed By: #### A BG ####Point of Care testing, ABG PCO2 52.4 mm[Hg] Off scale high 35.0-45.0 [facility] Comment on above: Performed By: #### A BG ####Point of Care testing, ABG PEEP 9 [facility] Comment on above: Performed By: #### A BG ####Point of Care testing, ABG PH 7.40 Normal 7.35-7.45 [facility] Comment on above: Performed By: #### A BG ####Point of Care testing, ABG PO2 82.4 mm[Hg] Normal 80.0-100.0 [facility] Comment on above: Performed By: #### A BG ####Point of Care testing, ABG TV 500 mL [facility] Comment on above: Performed By: #### A BG ####Point of Care testing, CO2 [Moles/Vol] 33.0 mmol/L High 23.0-27.0 [facility] Comment on above: Performed By: #### A BG ####Point of Care testing, HCO3 (Bld) [Moles/Vol] 31.4 mmol/L High 23.0-29.0 [facility] Comment on above: Performed By: #### A BG ####Point of Care testing, Respiratory Critical [facility] Comment on above: Result Comment: Crit ical Value called on: 11/09/2022 at 05:00PERFORMED BY:[facility] [place] [address] [place], [place] [phone] MEDICAL DIRECTORNATI LAUREN M.D. Performed By: #### A BG ####Point of Care testing, Set Respiratory Rate 20 [facility] Comment on above: Performed By: #### A BG ####Point of Care testing, VBG Draw Site Right Radial [facility] Comment on above: Performed By: #### A BG ####Point of Care testing, Ventilator Mode AC [facility] Comment on above: Performed By: #### A BG ####Point of Care testing, Basic Metabolic Panelon 05-0 Anion gap [Moles/Vol] 9.0 mmol/L Normal 6.0-15.0 [facility] Comment on above: Performed By: #### B MP, CBC ####[facility] [address] [place] [address] [facility] Calcium [Mass/Vol] 7.7 mg/dL Low 8.6-10.3 [facility] Comment on above: Performed By: #### B MP, CBC ####[facility] [address] [place] [address] [place] Chloride [Moles/Vol] 99 mmol/L Normal 98-107 [facility] Comment on above: Performed By: #### B MP, CBC ####[address] [place] [address] [facility] CO2 [Moles/Vol] 32.5 mmol/L High 21.0-31.0 [facility] Comment on above: Performed By: #### B MP, CBC ####[address] [place] [address] [facility] Creatinine [Mass/Vol] 0.40 mg/dL Low 0.70-1.30 [facility] Comment on above: Performed By: #### B MP, CBC ####[address] [place] [id number] [facility] Creatinine Clr Calc Pharmacy 270.64 [facility] Comment on above: Result Comment: PERF ORMED BY:[address] [place], [place] [phone] MEDICAL DIRECTORNATI LAUREN M.D. Performed By: #### B MP, CBC ####[address] [address] [facility] GFR/1.73 sq M.predicted MDRD (S/P/Bld) [Vol rate/Area] mL/min/{1.73_m2} [facility] Comment on above: Performed By: #### B MP, CBC ####[place] [id number] [facility] Glucose [Mass/Vol] 160 mg/dL High 70-100 [facility] Comment on above: Result Comment: [place] Glucose Reference Range is dependent on time and content of last meal. Glucose of more than 200 mg/dL in a nonstressed, ambulatory subject supports the diagnosis of Diabetes Mellitus. ADA recommended reference range Performed By: #### B MP, CBC ####[address] [place] [id number] [facility] Potassium [Moles/Vol] 4.5 mmol/L Normal 3.5-5.1 [facility] Comment on above: Performed By: #### B MP, CBC ####[address] [place] [address] [facility] Sodium [Moles/Vol] 136 mmol/L Normal 136-145 [facility] Comment on above: Performed By: #### B MP, CBC ####[facility] [place] [address] [facility] Urea nitrogen [Mass/Vol] 19 mg/dL Normal 7-25 [facility] Comment on above: Performed By: #### B MP, CBC ####[facility] [address] [place] [address] [facility] Complete Blood Count Auto Di ffon 11-09-2022 Basophils (Bld) [#/Vol] 0.0 10*3/uL Normal 0.0-0.2 [facility] Comment on above: Result Comment: PERF ORMED BY:[address] [place], [place] [phone] MEDICAL DIRECTORNATI LAUREN M.D. Performed By: #### B MP, CBC ####[address] [address] [facility] Basophils/100 WBC (Bld) 0.1 % Normal . [facility] Comment on above: Performed By: #### B MP, CBC ####[address] [address] [facility] Eosinophils (Bld) [#/Vol] 0.0 10*3/uL Normal 0.0-0.45 [facility] Comment on above: Performed By: #### B MP, CBC ####[facility] [address] [place] [address] [facility] Eosinophils/100 WBC (Bld) 0.0 % Normal . [facility] Comment on above: Performed By: #### B MP, CBC ####[address] [address] [facility] Erythrocyte distribution width (RBC) [Ratio] 14.2 % Normal 12.0-14.8 [facility] Comment on above: Performed By: #### B MP, CBC ####[place] [id number] [facility] Hematocrit (Bld) [Volume fraction] 31.0 % Low 38.8-50.0 [facility] Comment on above: Performed By: #### B MP, CBC ####[address] Hemoglobin (Bld) [Mass/Vol] 10.3 g/dL Low 13.0-17.0 [facility] Comment on above: Performed By: #### B MP, CBC ####[address] Lymphocytes (Bld) [#/Vol] 0.7 10*3/uL Low 1.00-4.8 [facility] Comment on above: Performed By: #### B MP, CBC ####[address] Lymphocytes/100 WBC (Bld) 4.6 % Normal . [facility] Comment on above: Performed By: #### B MP, CBC ####[address] MCH (RBC) [Entitic mass] 30.4 pg Normal 27.5-35.2 [facility] Comment on above: Performed By: #### B MP, CBC ####[address] MCV (RBC) [Entitic vol] 91.1 fL Normal 83.5-101 [facility] Comment on above: Performed By: #### B MP, CBC ####[place] [id number] [facility] Mean Corpuscular HGB Conc 33.4 g/dL Normal 32.5-35.6 [facility] Comment on above: Performed By: #### B MP, CBC ####[address] Monocytes (Bld) [#/Vol] 0.8 10*3/uL Normal 0.0-0.8 [facility] Comment on above: Performed By: #### B MP, CBC ####[address] [place] [address] [facility] Monocytes/100 WBC (Bld) 5.2 % Normal . [facility] Comment on above: Performed By: #### B MP, CBC ####[facility] [address] [place] [address] [facility] Neutrophils (Bld) [#/Vol] 13.1 10*3/uL High 1.8-7.7 [facility] Comment on above: Performed By: #### B MP, CBC ####[address] [address] [facility] Neutrophils/100 WBC (Bld) 90.1 % Normal . [facility] Comment on above: Performed By: #### B MP, CBC ####[address] [place] [address] [facility] NRBC% 0.1 /100{WBC} Normal 0-0.5 [facility] Comment on above: Performed By: #### B MP, CBC ####[address] [address] [facility] Platelet mean volume (Bld) [Entitic vol] 7.0 fL Normal 6.6-10.1 [facility] Comment on above: Performed By: #### B MP, CBC ####[address] [address] [facility] Platelets (Bld) [#/Vol] 408 10*3/uL Normal 150-450 [facility] Comment on above: Performed By: #### B MP, CBC ####[address] [address] [facility] RBC (Bld) [#/Vol] 3.40 10*6/uL Low 3.90-5.60 [facility] Comment on above: Performed By: #### B MP, CBC ####[address] [address] [facility] WBC (Bld) [#/Vol] 14.6 10*3/uL High 4.1-10.5 [facility] Comment on above: Performed By: #### B MP, CBC ####[facility] [place] [address] [facility] Glucose Poct Glucometerson 0 11-09-2022 Commemt1 Glu2: Cleaned Meter [facility] Comment on above: Result Comment: PERF ORMED BY:[address] [place], [place] [phone] MEDICAL DIRECTORNATI LAUREN M.D. Performed By: #### G LULS ####Point of Care testing, Glucose [Mass/Vol] 122 mg/dL Normal [facility] Comment on above: Result Comment: [place] om Glucose Reference Range is dependent on time and content of last meal. Glucose of more than 200 mg/dL in a nonstressed, ambulatory subject supports the diagnosis of Diabetes Mellitus. Performed By: #### G LULS ####Point of Care testing, Commemt1 Glu2: Cleaned Meter [facility] Comment on above: Result Comment: PERF ORMED BY:[address] [place], [place] [phone] MEDICAL DIRECTORNATI LAUREN M.D. Performed By: #### G LULS ####Point of Care testing, Glucose [Mass/Vol] 176 mg/dL Normal [facility] Comment on above: Result Comment: [place] om Glucose Reference Range is dependent on time and content of last meal. Glucose of more than 200 mg/dL in a nonstressed, ambulatory subject supports the diagnosis of Diabetes Mellitus. Performed By: #### G LULS ####Point of Care testing, Commemt1 Glu2: Cleaned Meter [facility] Comment on above: Result Comment: PERF ORMED BY:[address] [place], [place] [phone] MEDICAL ALEKSANDAR LAUREN M.D. Performed By: #### G LULS ####Point of Care testing, Glucose [Mass/Vol] 149 mg/dL Normal [facility] Comment on above: Result Comment: [place] om Glucose Reference Range is dependent on time and content of last meal. Glucose of more than 200 mg/dL in a nonstressed, ambulatory subject supports the diagnosis of Diabetes Mellitus. Performed By: #### G LULS ####Point of Care testing, Commemt1 Glu2: Cleaned Meter [facility] Comment on above: Result Comment: PERF ORMED BY:[address] [place], [place] [phone] MEDICAL DIRECTORNATI LAUREN M.D. Performed By: #### G LULS ####Point of Care testing, Glucose [Mass/Vol] 159 mg/dL [facility] Comment on above: Result Comment: [place] om Glucose Reference Range is dependent on time and content of last meal. Glucose of more than 200 mg/dL in a nonstressed, ambulatory subject supports the diagnosis of Diabetes Mellitus. Performed By: #### G LULS ####Point of Care testing, Triglycerideson 11-09-2022 Triglyceride [Mass/Vol] 392 mg/dL High 0-149 [facility] Comment on above: Result Comment: TRIG ATP III CLASSIFICATION TRIG less than 150 mg/dL Normal TRIG 150-199 mg/dL Borderline high TRIG 200-500 mg/dL High TRIG greater than 500 mg/dL Very high Standard traceable to the Center for Disease Conrtrol and Prevention (CDC) test method.PERFORMED BY:[address] [place], [place] [phone] MEDICAL ALEKSANDAR LAUREN M.D. Performed By: #### T RIG ####[address] [address] [facility] XR chest 1V portableon 11-09 XR chest 1V portable Normal [facility] XR chest 1V portable [facility] Arterial Blood Gason 023 ABG Base Excess 4.1 mmol/L High -3.0-3.0 [facility] Comment on above: Performed By: #### A BG ####Point of Care testing, ABG Frac Inspired O2 80 % [facility] Comment on above: Performed By: #### A BG ####Point of Care testing, ABG Oxygen Content 7.5 mmol/L Normal 6.6-9.7 [facility] Comment on above: Performed By: #### A BG ####Point of Care testing, ABG Oxygen Saturation 97.9 % Normal 95.0-100.0 [facility] Comment on above: Performed By: #### A BG ####Point of Care testing, ABG PCO2 55.6 mm[Hg] Off scale high 35.0-45.0 [facility] Comment on above: Performed By: #### A BG ####Point of Care testing, ABG PEEP 12 [facility] Comment on above: Performed By: #### A BG ####Point of Care testing, ABG PH 7.36 Normal 7.35-7.45 [facility] Comment on above: Performed By: #### A BG ####Point of Care testing, ABG PO2 111.2 mm[Hg] High 80.0-100.0 [facility] Comment on above: Performed By: #### A BG ####Point of Care testing, ABG TV 500 mL [facility] Comment on above: Performed By: #### A BG ####Point of Care testing, CO2 [Moles/Vol] 32.5 mmol/L High 23.0-27.0 [facility] Comment on above: Performed By: #### A BG ####Point of Care testing, HCO3 (Bld) [Moles/Vol] 30.8 mmol/L High 23.0-29.0 [facility] Comment on above: Performed By: #### A BG ####Point of Care testing, Respiratory Critical [facility] Comment on above: Result Comment: Crit ical Value called on: 11/08/2022 at 05:00PERFORMED BY:[facility] [place], [place] [phone] MEDICAL DIRECTORNATI LAUREN M.D. Performed By: #### A BG ####Point of Care testing, Set Respiratory Rate 20 Normal [facility] Comment on above: Performed By: #### A BG ####Point of Care testing, VBG Draw Site Left Radial [facility] Comment on above: Performed By: #### A BG ####Point of Care testing, Ventilator Mode AC [facility] Comment on above: Performed By: #### A BG ####Point of Care testing, Basic Metabolic Panelon 05-0 Anion gap [Moles/Vol] 10.0 mmol/L Normal 6.0-15.0 [facility] Comment on above: Performed By: #### B MP, SCAN CBC ####[facility] [address] [place] [address] [facility] Calcium [Mass/Vol] 8.2 mg/dL Low 8.6-10.3 [facility] Comment on above: Performed By: #### B MP, SCAN CBC ####[facility] Uzo[address] [place] [address] [place] Chloride [Moles/Vol] 99 mmol/L Normal 98-107 [facility] Comment on above: Performed By: #### B MP, SCAN CBC ####[facility] [address] [place] [address] [facility] CO2 [Moles/Vol] 29.8 mmol/L Normal 21.0-31.0 [facility] Comment on above: Performed By: #### B MP, SCAN CBC ####[facility] [address] [place] [address] [place] Creatinine [Mass/Vol] 0.43 mg/dL Low 0.70-1.30 [facility] Comment on above: Performed By: #### B MP, SCAN CBC ####[facility] [address] [place] [address] [place] Creatinine Clr Calc Pharmacy 251.76 [facility] Comment on above: Result Comment: PERF ORMED BY:[address] [place], [place] [phone] MEDICAL ALEKSANDAR LAUREN M.D. Performed By: #### B MP, SCAN CBC ####[facility] [address] [place] [address] [place] GFR/1.73 sq M.predicted MDRD (S/P/Bld) [Vol rate/Area] mL/min/{1.73_m2} Normal [facility] Comment on above: Performed By: #### B MP, SCAN CBC ####[facility] [address] [place] [address] [place] Glucose [Mass/Vol] 140 mg/dL High 70-100 [facility] Comment on above: Result Comment: [facility] Glucose Reference Range is dependent on time and content of last meal. Glucose of more than 200 mg/dL in a nonstressed, ambulatory subject supports the diagnosis of Diabetes Mellitus. ADA recommended reference range Performed By: #### B MP, SCAN CBC ####[facility] [address] [place] [address] [facility] Potassium [Moles/Vol] 4.8 mmol/L Normal 3.5-5.1 [facility] Comment on above: Performed By: #### B MP, SCAN CBC ####[facility] [place] [address] [facility] Sodium [Moles/Vol] 134 mmol/L Low 136-145 [facility] Comment on above: Performed By: #### B MP, SCAN CBC ####[facility] [address]mo[address] [place] [address] [facility] Urea nitrogen [Mass/Vol] 22 mg/dL Normal 7-25 [facility] Comment on above: Performed By: #### B MP, SCAN CBC ####[facility] Qev[address]190 [place] [address] [facility] Glucose Poct Glucometerson 0 11-08-2022 Glucose [Mass/Vol] 135 mg/dL Normal [facility] Comment on above: Result Comment: [facility] Glucose Reference Range is dependent on time and content of last meal. Glucose of more than 200 mg/dL in a nonstressed, ambulatory subject supports the diagnosis of Diabetes Mellitus.PERFORMED BY:[address] [place], [place] [phone] MEDICAL DIRECTORNATI LAUREN M.D. Performed By: #### G LULS ####Point of Care testing, HIV 1/O/2 Antigen/Antibodyon 11-08-2022 HIV Screen 4th Generation Non-Reactive Normal Non Reactive [facility] Comment on above: Order Comment: Dr. christopher gil putting in a chest tube Result Comment: HIV Negative HIV-1/HIV-2 antibodies and HIV-1 p24 antigen were NOT detected. There is no laboratory evidence of HIV infection. Performed at: [place] [address] Service Loss Control Consultant: Crow Frost PhD, Phone: [phone] BY:[address] [place], [place] [phone] MEDICAL DIRECTORNATI LAUREN M.D. Performed By: #### H IV SCREEN ####[facility] , HIV 1 and HIV-2 antibody ass ay with HIV-1 p24 antigen detectionOrdered By: Sanjay Holt on 11-08-2022 HIV 1+2 Ab+HIV1 p24 Ag IA Ql Non-Reactive Non Reactive [facility] Comment on above: HIV NegativeHIV-1/HI V-2 antibodies and HIV-1 p24 antigen were NOTdetected. There is no laboratory evidence of HIV infection.Performed at: [facility] [employer] [id number] Director: Crow Frost PhD, Phone: [phone] Scan and CBCon 11-08-2022 Basophils (Bld) [#/Vol] 0.0 10*3/uL Normal 0.0-0.2 [facility] Comment on above: Performed By: #### B MP, SCAN CBC ####[facility] [address] [place] [id number] [facility] Basophils/100 WBC (Bld) 0.2 % Normal . [facility] Comment on above: Performed By: #### B MP, SCAN CBC ####[facility] Wxa5439 [place] [address] [place] Eosinophils (Bld) [#/Vol] 0.0 10*3/uL Normal 0.0-0.45 [facility] Comment on above: Performed By: #### B MP, SCAN CBC ####[address] Eosinophils/100 WBC (Bld) 0.0 % Normal . [facility] Comment on above: Performed By: #### B MP, SCAN CBC ####[address] Erythrocyte distribution width (RBC) [Ratio] 14.0 % Normal 12.0-14.8 [facility] Comment on above: Performed By: #### B MP, SCAN CBC ####[address] Hematocrit (Bld) [Volume fraction] 32.9 % Low 38.8-50.0 [facility] Comment on above: Performed By: #### B MP, SCAN CBC ####[address] Hemoglobin (Bld) [Mass/Vol] 10.7 g/dL Low 13.0-17.0 [facility] Comment on above: Performed By: #### B MP, SCAN CBC ####[address] Hypochromasia Moderate Normal [facility] Comment on above: Performed By: #### B MP, SCAN CBC ####[address] Lymphocytes (Bld) [#/Vol] 0.7 10*3/uL Low 1.00-4.8 [facility] Comment on above: Performed By: #### B MP, SCAN CBC ####[address] Lymphocytes/100 WBC (Bld) 3.7 % Normal . [facility] Comment on above: Performed By: #### B MP, SCAN CBC ####[address] MCH (RBC) [Entitic mass] 29.9 pg Normal 27.5-35.2 [facility] Comment on above: Performed By: #### B MP, SCAN CBC ####[address] [address] [facility] MCV (RBC) [Entitic vol] 92.0 fL Normal 83.5-101 [facility] Comment on above: Performed By: #### B MP, SCAN CBC ####[place] [id number] [facility] Mean Corpuscular HGB Conc 32.5 g/dL Normal 32.5-35.6 [facility] Comment on above: Performed By: #### B MP, SCAN CBC ####[place] [id number] [facility] Monocytes (Bld) [#/Vol] 0.8 10*3/uL Normal 0.0-0.8 [facility] Comment on above: Performed By: #### B MP, SCAN CBC ####[place] [id number] [facility] Monocytes/100 WBC (Bld) 4.3 % Normal . [facility] Comment on above: Performed By: #### B MP, SCAN CBC ####[place] [address] [facility] Neutrophils (Bld) [#/Vol] 16.2 10*3/uL High 1.8-7.7 [facility] Comment on above: Performed By: #### B MP, SCAN CBC ####[place] [id number] [facility] Neutrophils/100 WBC (Bld) 91.8 % Normal . [facility] Comment on above: Performed By: #### B MP, SCAN CBC ####[address] [address] [facility] NRBC% 0.1 /100{WBC} Normal 0-0.5 [facility] Comment on above: Performed By: #### B MP, SCAN CBC ####[place] [id number] [facility] Platelet Estimate Normal Normal Normal [facility] Comment on above: Performed By: #### B MP, SCAN CBC ####[address] [address] [facility] Platelet mean volume (Bld) [Entitic vol] 7.4 fL Normal 6.6-10.1 [facility] Comment on above: Performed By: #### B MP, SCAN CBC ####[address] [address] [facility] Platelet Morphology Normal Normal Normal [facility] Comment on above: Result Comment: PERF ORMED BY:[address] [place], [place] [phone] MEDICAL DIRECTORNATI LAUREN M.D. Performed By: #### B MP, SCAN CBC ####[place] [id number] [facility] Platelets (Bld) [#/Vol] 391 10*3/uL Normal 150-450 [facility] Comment on above: Performed By: #### B MP, SCAN CBC ####[address] Polychromasia Moderate Normal [facility] Comment on above: Performed By: #### B MP, SCAN CBC ####[place] [id number] [facility] RBC (Bld) [#/Vol] 3.58 10*6/uL Low 3.90-5.60 [facility] Comment on above: Performed By: #### B MP, SCAN CBC ####[place] [id number] [facility] WBC (Bld) [#/Vol] 17.7 10*3/uL High 4.1-10.5 [facility] Comment on above: Performed By: #### B MP, SCAN CBC ####[place] [id number] [facility] XR chest 1V portableon 11-08 XR chest 1V portable Normal [facility] XR chest 1V portable Normal [facility] Arterial Blood Gason 023 ABG Base Excess 1.0 mmol/L Normal -3.0-3.0 [facility] Comment on above: Performed By: #### A BG ####Point of Care testing, ABG Frac Inspired O2 100 % Normal [facility] Comment on above: Performed By: #### A BG ####Point of Care testing, ABG Oxygen Content 7.4 mmol/L Normal 6.6-9.7 [facility] Comment on above: Performed By: #### A BG ####Point of Care testing, ABG Oxygen Saturation 98.0 % Normal 95.0-100.0 [facility] Comment on above: Performed By: #### A BG ####Point of Care testing, ABG PCO2 60.2 mm[Hg] Off scale high 35.0-45.0 [facility] Comment on above: Performed By: #### A BG ####Point of Care testing, ABG PEEP 15 [facility] Comment on above: Performed By: #### A BG ####Point of Care testing, ABG PH 7.30 Low 7.35-7.45 [facility] Comment on above: Performed By: #### A BG ####Point of Care testing, ABG PO2 115.1 mm[Hg] High 80.0-100.0 [facility] Comment on above: Performed By: #### A BG ####Point of Care testing, ABG TV 500 mL [facility] Comment on above: Performed By: #### A BG ####Point of Care testing, CO2 [Moles/Vol] 30.5 mmol/L High 23.0-27.0 [facility] Comment on above: Performed By: #### A BG ####Point of Care testing, HCO3 (Bld) [Moles/Vol] 28.6 mmol/L Normal 23.0-29.0 [facility] Comment on above: Performed By: #### A BG ####Point of Care testing, Respiratory Critical [facility] Comment on above: Result Comment: Crit ical Value called on: 11/07/2022 at 09:15PERFORMED BY:[facility] [place], [place] [phone] MEDICAL DIRECTORNATI LAUREN M.D. Performed By: #### A BG ####Point of Care testing, Set Respiratory Rate 18 [facility] Comment on above: Performed By: #### A BG ####Point of Care testing, VBG Draw Site Right Radial [facility] Comment on above: Performed By: #### A BG ####Point of Care testing, Ventilator Mode AC [facility] Comment on above: Performed By: #### A BG ####Point of Care testing, ABG Base Excess 1.8 mmol/L Normal -3.0-3.0 [facility] Comment on above: Performed By: #### A BG ####Point of Care testing, ABG Frac Inspired O2 100 % [facility] Comment on above: Performed By: #### A BG ####Point of Care testing, ABG Oxygen Content 7.6 mmol/L Normal 6.6-9.7 [facility] Comment on above: Performed By: #### A BG ####Point of Care testing, ABG Oxygen Saturation 91.2 % Low 95.0-100.0 [facility] Comment on above: Performed By: #### A BG ####Point of Care testing, ABG PCO2 41.8 mm[Hg] Normal 35.0-45.0 [facility] Comment on above: Performed By: #### A BG ####Point of Care testing, ABG PEEP 10 [facility] Comment on above: Performed By: #### A BG ####Point of Care testing, ABG PH 7.42 Normal 7.35-7.45 [facility] Comment on above: Performed By: #### A BG ####Point of Care testing, ABG PO2 56.9 mm[Hg] Low 80.0-100.0 [facility] Comment on above: Performed By: #### A BG ####Point of Care testing, ABG Pressure Support 8.0 [facility] Comment on above: Performed By: #### A BG ####Point of Care testing, CO2 [Moles/Vol] 27.7 mmol/L High 23.0-27.0 [facility] Comment on above: Performed By: #### A BG ####Point of Care testing, HCO3 (Bld) [Moles/Vol] 26.4 mmol/L Normal 23.0-29.0 [facility] Comment on above: Performed By: #### A BG ####Point of Care testing, Oxygen Device BiPAP Normal [facility] Comment on above: Performed By: #### A BG ####Point of Care testing, Respiratory Critical [facility] Comment on above: Result Comment: Crit ical Value called on: 11/07/2022 at 05:41PERFORMED BY:[address] [place], [place] [phone] MEDICAL DIRECTORNATI LAUREN M.D. Performed By: #### A BG ####Point of Care testing, VBG Draw Site Right Radial [facility] Comment on above: Performed By: #### A BG ####Point of Care testing, Bacteria identification by s terile body fluid cultureOrdered By: Sanjay Holt on 11-07-2022 Bacteria identified Sterile body fluid culture Nom (Unsp spec) Not indicated. . [facility] Bacteria identification dete ction in isolate by cultureOrdered By: Sanjay Holt on 11-07-2022 Bacteria Identification Cx Ql (Isol) Not indicated. . [facility] Comprehensive Metabolic Pane tiago 11-07-2022 Albumin [Mass/Vol] 2.9 g/dL Low 3.5-5.7 [facility] Comment on above: Performed By: #### C MP, SCAN CBC ####[facility] [id number] [place] [address] [facility] Albumin/Globulin [Mass ratio] 0.9 {ratio} [facility] Comment on above: Performed By: #### C MP, SCAN CBC ####[facility] [address] [place] [address] [facility] ALP [Catalytic activity/Vol] 107 U/L High 34-104 [facility] Comment on above: Performed By: #### C MP, SCAN CBC ####[place] [address] [place] [address] [facility] ALT [Catalytic activity/Vol] 38 U/L Normal 7-52 [facility] Comment on above: Performed By: #### C MP, SCAN CBC ####[facility] [address] [place] [address] [facility] Anion gap [Moles/Vol] 11.7 mmol/L Normal 6.0-15.0 [facility] Comment on above: Performed By: #### C MP, SCAN CBC ####[place] [address] [place] [id number] [facility] AST [Catalytic activity/Vol] 32 U/L Normal 13-39 [facility] Comment on above: Performed By: #### C MP, SCAN CBC ####[place] [id number] [facility] Bilirubin [Mass/Vol] 0.5 mg/dL Normal 0.3-1.0 [facility] Comment on above: Performed By: #### C MP, SCAN CBC ####[address] [address] [facility] Calcium [Mass/Vol] 8.4 mg/dL Low 8.6-10.3 [facility] Comment on above: Performed By: #### C MP, SCAN CBC ####[address] [address] [facility] Chloride [Moles/Vol] 99 mmol/L Normal 98-107 [facility] Comment on above: Performed By: #### C MP, SCAN CBC ####[facility] [address] [place] [address] [facility] CO2 [Moles/Vol] 27.6 mmol/L Normal 21.0-31.0 [facility] Comment on above: Performed By: #### C MP, SCAN CBC ####[facility] [address] [place] [address] [facility] Creatinine [Mass/Vol] 0.55 mg/dL Low 0.70-1.30 [facility] Comment on above: Performed By: #### C MP, SCAN CBC ####[facility] [address] [place] [address] [place] Creatinine Clr Calc Pharmacy 197.78 [facility] Comment on above: Result Comment: PERF ORMED BY:[address] [place]fred[place], [place] [phone] MEDICAL ALEKSANDAR LAUREN M.D. Performed By: #### C MP, SCAN CBC ####[facility] [address] [place] [address] [place] GFR/1.73 sq M.predicted MDRD (S/P/Bld) [Vol rate/Area] mL/min/{1.73_m2} [facility] Comment on above: Performed By: #### C MP, SCAN CBC ####[place] [address] [place] [address] [place] Globulin (S) [Mass/Vol] 3.4 g/dL [facility] Comment on above: Performed By: #### C MP, SCAN CBC ####[facility] Qsl1813 [place] [address] [facility] Glucose [Mass/Vol] 128 mg/dL High 70-100 [facility] Comment on above: Result Comment: [place] Glucose Reference Range is dependent on time and content of last meal. Glucose of more than 200 mg/dL in a nonstressed, ambulatory subject supports the diagnosis of Diabetes Mellitus. ADA recommended reference range Performed By: #### C MP, SCAN CBC ####[facility] [address] [place] [address] [facility] Potassium [Moles/Vol] 4.3 mmol/L Normal 3.5-5.1 [facility] Comment on above: Performed By: #### C MP, SCAN CBC ####[facility] [address]2663 [place] [address] [facility] Protein [Mass/Vol] 6.3 g/dL Low 6.4-8.9 [facility] Comment on above: Performed By: #### C MP, SCAN CBC ####[facility] Lqh[address]644 [place] [address] [facility] Sodium [Moles/Vol] 134 mmol/L Low 136-145 [facility] Comment on above: Performed By: #### C MP, SCAN CBC ####[facility] Xio[address]351 [place] [address] [facility] Urea nitrogen [Mass/Vol] 20 mg/dL Normal 7-25 [facility] Comment on above: Performed By: #### C MP, SCAN CBC ####[facility] H[address] [place] [address] [facility] ECG 12 lead ECGon 11-07-2022 ECG 12 lead ECG Normal [facility] ECG 12 lead ECG Normal [facility] ECG 12 lead ECG Normal [facility] Legionella Pneu 1-6 Antibodi eson 11-07-2022 Legionella Pneu 1-6 Antibodies <0.91 Normal 0.00-0.90 [facility] Comment on above: Order Comment: SPECI MEN HEMOLYZED NEEDS REDRAWN PLEASE Result Comment: Nega tive <0.91 Equivocal 0.91 - 1.09 Positive >1.09 This assay detects IgG/IgM/IgA antibodies to L. pneumophila Groups 1-6 by the EIA method. Performed at: [facility] [id number] Service Loss Control Consultant: Marla Bravo MD, Phone: [phone] BY:[address] [place], [place] [phone] MEDICAL DIRECTORNATI LAUREN M.D. Performed By: #### L EG PNE AB ####[facility] , Legionella Pneumophilia Ag, Uron 11-07-2022 Legionella Pneumophilia Ag, Ur Negative Normal Negative [facility] Comment on above: Order Comment: SOURC E OF SPECIMEN: earl Result Comment: Pres umptive negative for L. pneumophila serogroup 1 antigen in urine, suggesting no recent or current infection. Legionnaires' disease cannot be ruled out since other serogroups and species may also cause disease. Performed at: - [facility] [id number] Service Loss Control Consultant: Marla Bravo MD, Phone: [phone] BY:[facility] [place], [place] [phone] MEDICAL DIRECTORNATI LAUREN M.D. Performed By: #### U RLEGIONELLA ####[facility] , Legionella pneumophila type 1-6 antibody assayOrdered By: Sanjay Holt on 11-07-2022 L. pneumophila 1+2+3+4+5+6 Ab (S) [Titer] <0.91 OD ratio 0.00-0.90 [facility] Comment on above: Negative <0.91 Equiv ocal 0.91 - 1.09 Positive >1.09 This assay detects IgG/IgM/IgA antibodies to L. pneumophila Groups 1-6 by the EIA method.Performed at: [facility] [employer] [facility] [employer] [id number] Director: Marla Bravo MD, Phone: [phone] Macrocytes LM Ql (Bld)Ordere d By: Netta Wiseman on 11-07-2022 Macrocytes Ql (Bld) Slight [facility] No Panel InformationOrdered By: Sanjay Holt on 11-07-2022 Strep pneumoniae Special Info See comment . [facility] Comment on above: [employer] standards require aculture to be performed on CSF specimens submitted forbacterial antigen testing. (CAP ALEJANDRO.[id number]) Urine specimenswill not be cultured.Performed at: [address] [id number] Director: Marla Bravo MD, Phone: [phone] No Panel InformationOrdered By: Netta Wiseman on 11-07-2022 Blood Gas Pressure Support 8.0 cmH2O [facility] Oxygen Delivery Device Bipap [facility] Scan and CBCon 11-07-2022 Anisocytosis Ql (Bld) Slight Normal [facility] Comment on above: Performed By: #### C MP, SCAN CBC ####[facility] [address] Basophils (Bld) [#/Vol] 0.1 10*3/uL Normal 0.0-0.2 [facility] Comment on above: Performed By: #### C MP, SCAN CBC ####[address] Basophils/100 WBC (Bld) 0.3 % Normal . [facility] Comment on above: Performed By: #### C MP, SCAN CBC ####[address] Eosinophils (Bld) [#/Vol] 0.0 10*3/uL Normal 0.0-0.45 [facility] Comment on above: Performed By: #### C MP, SCAN CBC ####[address] Eosinophils/100 WBC (Bld) 0.0 % Normal . [facility] Comment on above: Performed By: #### C MP, SCAN CBC ####[address] Erythrocyte distribution width (RBC) [Ratio] 14.0 % Normal 12.0-14.8 [facility] Comment on above: Performed By: #### C MP, SCAN CBC ####[address] Hematocrit (Bld) [Volume fraction] 35.1 % Low 38.8-50.0 [facility] Comment on above: Performed By: #### C MP, SCAN CBC ####[address] Hemoglobin (Bld) [Mass/Vol] 11.5 g/dL Low 13.0-17.0 [facility] Comment on above: Performed By: #### C MP, SCAN CBC ####[address] Hypochromasia Slight Normal [facility] Comment on above: Performed By: #### C MP, SCAN CBC ####[address] Lymphocytes (Bld) [#/Vol] 1.1 10*3/uL Normal 1.00-4.8 [facility] Comment on above: Performed By: #### C MP, SCAN CBC ####[address] Lymphocytes/100 WBC (Bld) 3.3 % Normal . [facility] Comment on above: Performed By: #### C MP, SCAN CBC ####[address] Macrocytosis Slight Normal [facility] Comment on above: Performed By: #### C MP, SCAN CBC ####[address] MCH (RBC) [Entitic mass] 29.8 pg Normal 27.5-35.2 [facility] Comment on above: Performed By: #### C MP, SCAN CBC ####[address] MCV (RBC) [Entitic vol] 91.0 fL Normal 83.5-101 [facility] Comment on above: Performed By: #### C MP, SCAN CBC ####[address] Mean Corpuscular HGB Conc 32.8 g/dL Normal 32.5-35.6 [facility] Comment on above: Performed By: #### C MP, SCAN CBC ####[address] Monocytes (Bld) [#/Vol] 0.8 10*3/uL Normal 0.0-0.8 [facility] Comment on above: Performed By: #### C MP, SCAN CBC ####[address] Monocytes/100 WBC (Bld) 2.4 % Normal . [facility] Comment on above: Performed By: #### C MP, SCAN CBC ####[address] Neutrophils (Bld) [#/Vol] 30.7 10*3/uL High 1.8-7.7 [facility] Comment on above: Performed By: #### C MP, SCAN CBC ####[address] [address] [facility] Neutrophils/100 WBC (Bld) 94.0 % Normal . [facility] Comment on above: Performed By: #### C MP, SCAN CBC ####[address] [address] [facility] NRBC% 0.1 /100{WBC} Normal 0-0.5 [facility] Comment on above: Performed By: #### C MP, SCAN CBC ####[address] [address] [facility] Platelet Estimate Normal Normal Normal [facility] Comment on above: Performed By: #### C MP, SCAN CBC ####[address] [address] [facility] Platelet mean volume (Bld) [Entitic vol] 7.9 fL Normal 6.6-10.1 [facility] Comment on above: Performed By: #### C MP, SCAN CBC ####[address] [address] [facility] Platelet Morphology Normal Normal Normal [facility] Comment on above: Result Comment: PERF ORMED BY:[address] [place], [place] [phone] MEDICAL ALEKSANDAR LAUREN M.D. Performed By: #### C MP, SCAN CBC ####[address] [address] [facility] Platelets (Bld) [#/Vol] 409 10*3/uL Normal 150-450 [facility] Comment on above: Performed By: #### C MP, SCAN CBC ####[address] [address] [facility] Polychromasia Slight Normal [facility] Comment on above: Performed By: #### C MP, SCAN CBC ####[address] [address] [facility] RBC (Bld) [#/Vol] 3.85 10*6/uL Low 3.90-5.60 [facility] Comment on above: Performed By: #### C MP, SCAN CBC ####[facility] Wbu[address] Stomatocytes Slight Normal [facility] Comment on above: Performed By: #### C MP, SCAN CBC ####[facility] [address] [place] [id number] [facility] WBC (Bld) [#/Vol] 32.6 10*3/uL High 4.1-10.5 [facility] Comment on above: Performed By: #### C MP, SCAN CBC ####[facility] Xkh[address] Specimen source identifiedOr dered By: Sanjay Holt on 11-07-2022 Specimen source Nom (Unsp spec) Urine . [facility] Strep Pneumoniae Ag, Uron Body Fluid Culture Not indicated. Normal . [facility] Comment on above: Order Comment: SOURC E OF SPECIMEN: earl Performed By: #### U R STP AG ####[facility] , Organism ID Not indicated. Normal . [facility] Comment on above: Order Comment: SOURC E OF SPECIMEN: earl Performed By: #### U R STP AG ####[facility] , Please Note: Normal . [facility] Comment on above: Order Comment: SOURC E OF SPECIMEN: earl Result Comment: [employer] standards require a culture to be performed on CSF specimens submitted for bacterial antigen testing. (CAP ALEJANDRO.[id number]) Urine specimens will not be cultured. Performed at: [address] [id number] Service Loss Control Consultant: Marla Bravo MD, Phone: [phone] BY:[place] [address] [address] [place], [place] [phone] MEDICAL DIRECTORNATI LAUREN M.D. Performed By: #### U R STP AG ####[facility] , Specimen source Nom (Unsp spec) Urine Normal . [facility] Comment on above: Order Comment: SOURC E OF SPECIMEN: earl Performed By: #### U R STP AG ####[facility] , Streptococcus Pneumoniae Ag Negative Normal Negative [facility] Comment on above: Order Comment: SOURC E OF SPECIMEN: earl Performed By: #### U R STP AG ####[facility] , Streptococcus pneumoniae ant igen detectionOrdered By: Sanjay Holt on 11-07-2022 S. pneumoniae Ag Ql (Unsp spec) Negative Negative [facility] Triglycerideson 11-07-2022 Triglyceride [Mass/Vol] 222 mg/dL High 0-149 [facility] Comment on above: Order Comment: Comme nt please run off blood drawn this morning Result Comment: TRIG ATP III CLASSIFICATION TRIG less than 150 mg/dL Normal TRIG 150-199 mg/dL Borderline high TRIG 200-500 mg/dL High TRIG greater than 500 mg/dL Very high Standard traceable to the Center for Disease Conrtrol and Prevention (CDC) test method.PERFORMED BY:[facility] [place], [place] [phone] MEDICAL DIRECTORNATI LAUREN M.D. Performed By: #### T RIG ####[facility] [id number] [place] [address] [facility] Urine Legionella antigen det ectionOrdered By: Sanjay Holt on 11-07-2022 Legionella sp Ag Ql (U) Negative Negative [facility] Comment on above: Presumptive negative for L. pneumophila serogroup 1 antigenin urine, suggesting no recent or current infection.Legionnaires' disease cannot be ruled out since otherserogroups and species may also cause disease.Performed at: [address] [id number] Director: Marla Bravo MD, Phone: [phone] XR chest 1V portableon 11-07 XR chest 1V portable Normal [facility] XR chest 1V portable Normal [facility] CT chest w conon 11-06-2022 CT chest w con Normal [facility] Comprehensive Metabolic Pane tiago 11-06-2022 Albumin [Mass/Vol] 2.8 g/dL Low 3.5-5.7 [facility] Comment on above: Order Comment: draw at 0500 Performed By: #### C MP, SCAN CBC ####[place] [address] [place] [address] [facility] Albumin/Globulin [Mass ratio] 0.8 {ratio} Normal [facility] Comment on above: Order Comment: draw at 0500 Performed By: #### C MP, SCAN CBC ####[place] [place] [address] [facility] ALP [Catalytic activity/Vol] 96 U/L Normal 34-104 [facility] Comment on above: Order Comment: draw at 0500 Performed By: #### C MP, SCAN CBC ####[place] [place] [address] [facility] ALT [Catalytic activity/Vol] 17 U/L Normal 7-52 [facility] Comment on above: Order Comment: draw at 0500 Performed By: #### C MP, SCAN CBC ####[place] [place] [address] [facility] Anion gap [Moles/Vol] 11.9 mmol/L Normal 6.0-15.0 [facility] Comment on above: Order Comment: draw at 0500 Performed By: #### C MP, SCAN CBC ####[address] [address] [facility] AST [Catalytic activity/Vol] 11 U/L Low 13-39 [facility] Comment on above: Order Comment: draw at 0500 Performed By: #### C MP, SCAN CBC ####[place] [place] [address] [facility] Bilirubin [Mass/Vol] 0.5 mg/dL Normal 0.3-1.0 [facility] Comment on above: Order Comment: draw at 0500 Performed By: #### C MP, SCAN CBC ####[address] [place] [address] [place] Calcium [Mass/Vol] 8.4 mg/dL Low 8.6-10.3 [facility] Comment on above: Order Comment: draw at 0500 Performed By: #### C MP, SCAN CBC ####[facility] [place] [address] [facility] Chloride [Moles/Vol] 101 mmol/L Normal 98-107 [facility] Comment on above: Order Comment: draw at 0500 Performed By: #### C MP, SCAN CBC ####[place] [address] [place] [address] [facility] CO2 [Moles/Vol] 26.8 mmol/L Normal 21.0-31.0 [facility] Comment on above: Order Comment: draw at 0500 Performed By: #### C MP, SCAN CBC ####[place] [address] [place] [address] [facility] Creatinine [Mass/Vol] 0.51 mg/dL Low 0.70-1.30 [facility] Comment on above: Order Comment: draw at 0500 Performed By: #### C MP, SCAN CBC ####[place] [address] [place] [address] [place] Creatinine Clr Calc Pharmacy 213.29 [facility] Comment on above: Order Comment: draw at 0500 Result Comment: PERF ORMED BY:[address] [place]freditoP[place], [place] [phone] MEDICAL ALEKSANDAR LAUREN M.D. Performed By: #### C MP, SCAN CBC ####[address] [place] [address] [place] GFR/1.73 sq M.predicted MDRD (S/P/Bld) [Vol rate/Area] mL/min/{1.73_m2} [facility] Comment on above: Order Comment: draw at 0500 Performed By: #### C MP, SCAN CBC ####[address] [place] [address] [facility] Globulin (S) [Mass/Vol] 3.4 g/dL [facility] Comment on above: Order Comment: draw at 0500 Performed By: #### C MP, SCAN CBC ####[place] [place] [address] [place] Glucose [Mass/Vol] 127 mg/dL High 70-100 [facility] Comment on above: Order Comment: draw at 0500 Result Comment: [place] Glucose Reference Range is dependent on time and content of last meal. Glucose of more than 200 mg/dL in a nonstressed, ambulatory subject supports the diagnosis of Diabetes Mellitus. ADA recommended reference range Performed By: #### C MP, SCAN CBC ####[facility] [address] [place] [address] [facility] Potassium [Moles/Vol] 3.7 mmol/L Normal 3.5-5.1 [facility] Comment on above: Order Comment: draw at 0500 Performed By: #### C MP, SCAN CBC ####[address] [place] [address] [facility] Protein [Mass/Vol] 6.2 g/dL Low 6.4-8.9 [facility] Comment on above: Order Comment: draw at 0500 Performed By: #### C MP, SCAN CBC ####[address] [place] [address] [facility] Sodium [Moles/Vol] 136 mmol/L Normal 136-145 [facility] Comment on above: Order Comment: draw at 0500 Performed By: #### C MP, SCAN CBC ####[place] [id number] [facility] Urea nitrogen [Mass/Vol] 15 mg/dL Normal 7-25 [facility] Comment on above: Order Comment: draw at 0500 Performed By: #### C MP, SCAN CBC ####[address] [place] [address] [facility] Helmet cell detectionOrdered By: Netta Wiseman on 11-06-2022 Helmet cells LM Ql (Bld) Slight [facility] Scan and CBCon 11-06-2022 Basophils (Bld) [#/Vol] 0.1 10*3/uL Normal 0.0-0.2 [facility] Comment on above: Order Comment: draw at 0500 Performed By: #### C MP, SCAN CBC ####[address] Basophils/100 WBC (Bld) 0.2 % Normal . [facility] Comment on above: Order Comment: draw at 0500 Performed By: #### C MP, SCAN CBC ####[address] Eosinophils (Bld) [#/Vol] 0.0 10*3/uL Normal 0.0-0.45 [facility] Comment on above: Order Comment: draw at 0500 Performed By: #### C MP, SCAN CBC ####[address] Eosinophils/100 WBC (Bld) 0.0 % Normal . [facility] Comment on above: Order Comment: draw at 0500 Performed By: #### C MP, SCAN CBC ####[address] Erythrocyte distribution width (RBC) [Ratio] 13.9 % Normal 12.0-14.8 [facility] Comment on above: Order Comment: draw at 0500 Performed By: #### C MP, SCAN CBC ####[address] Helmet Cells Slight Normal [facility] Comment on above: Order Comment: draw at 0500 Performed By: #### C MP, SCAN CBC ####[address] Hematocrit (Bld) [Volume fraction] 34.6 % Low 38.8-50.0 [facility] Comment on above: Order Comment: draw at 0500 Performed By: #### C MP, SCAN CBC ####[address] Hemoglobin (Bld) [Mass/Vol] 11.2 g/dL Low 13.0-17.0 [facility] Comment on above: Order Comment: draw at 0500 Performed By: #### C MP, SCAN CBC ####[id number] [facility] Hypochromasia Slight Normal [facility] Comment on above: Order Comment: draw at 0500 Performed By: #### C MP, SCAN CBC ####[id number] [facility] Lymphocytes (Bld) [#/Vol] 1.1 10*3/uL Normal 1.00-4.8 [facility] Comment on above: Order Comment: draw at 0500 Performed By: #### C MP, SCAN CBC ####[id number] [facility] Lymphocytes/100 WBC (Bld) 3.5 % Normal . [facility] Comment on above: Order Comment: draw at 0500 Performed By: #### C MP, SCAN CBC ####[place] [id number] [facility] MCH (RBC) [Entitic mass] 29.7 pg Normal 27.5-35.2 [facility] Comment on above: Order Comment: draw at 0500 Performed By: #### C MP, SCAN CBC ####[id number] [facility] MCV (RBC) [Entitic vol] 91.8 fL Normal 83.5-101 [facility] Comment on above: Order Comment: draw at 0500 Performed By: #### C MP, SCAN CBC ####[place] [id number] [facility] Mean Corpuscular HGB Conc 32.4 g/dL Low 32.5-35.6 [facility] Comment on above: Order Comment: draw at 0500 Performed By: #### C MP, SCAN CBC ####[place] [id number] [facility] Monocytes (Bld) [#/Vol] 1.0 10*3/uL High 0.0-0.8 [facility] Comment on above: Order Comment: draw at 0500 Performed By: #### C MP, SCAN CBC ####[place] [id number] [facility] Monocytes/100 WBC (Bld) 3.3 % Normal . [facility] Comment on above: Order Comment: draw at 0500 Performed By: #### C MP, SCAN CBC ####[address] [address] [facility] Neutrophils (Bld) [#/Vol] 28.0 10*3/uL High 1.8-7.7 [facility] Comment on above: Order Comment: draw at 0500 Performed By: #### C MP, SCAN CBC ####[address] [address] [facility] Neutrophils/100 WBC (Bld) 93.0 % Normal . [facility] Comment on above: Order Comment: draw at 0500 Performed By: #### C MP, SCAN CBC ####[address] [address] [facility] NRBC% 0.0 /100{WBC} Normal 0-0.5 [facility] Comment on above: Order Comment: draw at 0500 Performed By: #### C MP, SCAN CBC ####[address] [address] [facility] Platelet Estimate Normal Normal Normal [facility] Comment on above: Order Comment: draw at 0500 Performed By: #### C MP, SCAN CBC ####[address] [address] [facility] Platelet mean volume (Bld) [Entitic vol] 8.0 fL Normal 6.6-10.1 [facility] Comment on above: Order Comment: draw at 0500 Performed By: #### C MP, SCAN CBC ####[address] [address] [facility] Platelet Morphology Normal Normal Normal [facility] Comment on above: Order Comment: draw at 0500 Result Comment: PERF ORMED BY:[address] [place], [place] [phone] MEDICAL ALEKSANDAR LAUREN M.D. Performed By: #### C MP, SCAN CBC ####[address] [place] [address] [place] Platelets (Bld) [#/Vol] 346 10*3/uL Normal 150-450 [facility] Comment on above: Order Comment: draw at 0500 Performed By: #### C MP, SCAN CBC ####[address] RBC (Bld) [#/Vol] 3.77 10*6/uL Low 3.90-5.60 [facility] Comment on above: Order Comment: draw at 0500 Performed By: #### C MP, SCAN CBC ####[id number] [facility] WBC (Bld) [#/Vol] 30.2 10*3/uL High 4.1-10.5 [facility] Comment on above: Order Comment: draw at 0500 Performed By: #### C MP, SCAN CBC ####[address] Aerobic Cultureon 11-05-2022 Aerobic Culture [facility] Comment on above: Performed By: #### G S, AERC ####[address] Arterial Blood Gason 023 ABG Base Excess 0.9 mmol/L Normal -3.0-3.0 [facility] Comment on above: Performed By: #### A BG ####Point of Care testing, ABG Frac Inspired O2 55 % [facility] Comment on above: Performed By: #### A BG ####Point of Care testing, ABG Liter Flow 14 [facility] Comment on above: Performed By: #### A BG ####Point of Care testing, ABG Oxygen Content 6.6 mmol/L Normal 6.6-9.7 [facility] Comment on above: Performed By: #### A BG ####Point of Care testing, ABG Oxygen Saturation 89.0 % Low 95.0-100.0 [facility] Comment on above: Performed By: #### A BG ####Point of Care testing, ABG PCO2, Temp Corrected 40.4 mm[Hg] Normal 35.0-45.0 [facility] Comment on above: Performed By: #### A BG ####Point of Care testing, ABG PH, Temp Corrected 7.41 Normal 7.35-7.45 [facility] Comment on above: Performed By: #### A BG ####Point of Care testing, ABG PO2, Temperature Corrected 61.0 mm[Hg] Low 80.0-100.0 [facility] Comment on above: Performed By: #### A BG ####Point of Care testing, CO2 [Moles/Vol] 25.8 mmol/L Normal 23.0-27.0 [facility] Comment on above: Performed By: #### A BG ####Point of Care testing, HCO3 (Bld) [Moles/Vol] 24.7 mmol/L Normal 23.0-29.0 [facility] Comment on above: Performed By: #### A BG ####Point of Care testing, Oxygen Device Venti Mask [facility] Comment on above: Performed By: #### A BG ####Point of Care testing, Respiratory Critical Normal [facility] Comment on above: Result Comment: Crit ical Value called on: 11/05/2022 at 09:39PERFORMED BY:[address] [place] [phone] MEDICAL DIRECTORNATI LAUREN M.D. Performed By: #### A BG ####Point of Care testing, VBG Draw Site Right Radial Normal [facility] Comment on above: Performed By: #### A BG ####Point of Care testing, B-Type Natriuretic Peptideon 11-05-2022 Natriuretic peptide B (Bld) [Mass/Vol] 130.0 pg/mL High 5-100 [facility] Comment on above: Result Comment: PERF ORMED BY:[address] [place] [place] [phone] MEDICAL DIRECTORNATI LAUREN M.D. Performed By: #### B BONDING SUPERVISOR, LACTIC, HS TROP, HEPATIC ####[address]#### PROCALCITONIN ####[facility] , Basic Metabolic Panelon - Anion gap [Moles/Vol] 10.1 mmol/L Normal 6.0-15.0 [facility] Comment on above: Performed By: #### E SR, BMP, MG, CBC ####[address] Calcium [Mass/Vol] 7.8 mg/dL Low 8.6-10.3 [facility] Comment on above: Performed By: #### E SR, BMP, MG, CBC ####[address] Chloride [Moles/Vol] 101 mmol/L Normal 98-107 [facility] Comment on above: Performed By: #### E SR, BMP, MG, CBC ####[address] CO2 [Moles/Vol] 27.1 mmol/L Normal 21.0-31.0 [facility] Comment on above: Performed By: #### E SR, BMP, MG, CBC ####[address] Creatinine [Mass/Vol] 0.59 mg/dL Low 0.70-1.30 [facility] Comment on above: Performed By: #### E SR, BMP, MG, CBC ####[id number] [facility] Creatinine Clr Calc Pharmacy 169.08 [facility] Comment on above: Performed By: #### E SR, BMP, MG, CBC ####[place] [id number] [facility] GFR/1.73 sq M.predicted MDRD (S/P/Bld) [Vol rate/Area] mL/min/{1.73_m2} Normal [facility] Comment on above: Performed By: #### E SR, BMP, MG, CBC ####[address] [place] [address] [facility] Glucose [Mass/Vol] 135 mg/dL High 70-100 [facility] Comment on above: Result Comment: [place] Glucose Reference Range is dependent on time and content of last meal. Glucose of more than 200 mg/dL in a nonstressed, ambulatory subject supports the diagnosis of Diabetes Mellitus. ADA recommended reference range Performed By: #### E SR, BMP, MG, CBC ####[address] [place] [address] [facility] Potassium [Moles/Vol] 3.2 mmol/L Low 3.5-5.1 [facility] Comment on above: Performed By: #### E SR, BMP, MG, CBC ####[id number] [facility] Sodium [Moles/Vol] 135 mmol/L Low 136-145 [facility] Comment on above: Performed By: #### E SR, BMP, MG, CBC ####[id number] [facility] Urea nitrogen [Mass/Vol] 13 mg/dL Normal 7-25 [facility] Comment on above: Performed By: #### E SR, BMP, MG, CBC ####[address] [address] [facility] BioFire Not Detectedon 11-05 BioFire Not Detected Not detected Normal Not Detecte [facility] Comment on above: Result Comment: This is a duplicate RP2.1 COVID (PCR) result to be used for statistical tracking purpose only.PERFORMED BY:[address] [place], [place] [phone] MEDICAL ALEKSANDAR LAUREN M.D. Performed By: #### B IOFIRECOVNOTDE, RESP PANEL UPP. ####[id number] [facility] Blood Cultureon 11-05-2022 Bacteria identified Cx Nom (Bld) NO GROWTH 5 DAYS PERFORMED BY: [facility] [address] [place] [id number] PATHOLOGIST SEWER AND INSPECTOR NATI LAUREN M.D. [facility] Comment on above: Performed By: #### C UBLD ####[facility] [address] [place] [address] [facility] CARDIAC RON 3-6on 3 CK [Catalytic activity/Vol] 45 U/L Normal 39-308 [facility] Comment on above: Performed By: #### C MREP #### [facility] [address] [address] [address] Epi Goldstein CK.MB [Mass/Vol] 0.75 ng/mL Normal <=3.60 [facility] Comment on above: Performed By: #### C MREP #### [facility] [address] [address] [address] Epi Goldstein HSTROP 7.0 pg/mL Normal 4.0-76.1 [facility] Comment on above: Result Comment: CUT- OFF POINTS HAVE BEEN ESTABLISHED BASED ON THE FOURTH UNIVERSAL DEFINITIONS OF MYOCARDIAL INFARCTION. THE UPPER REFERENCE LIMIT (URL) OF TROPONIN, DEFINED THE 99TH PERCENTILE OF cTnI DISTRIBUTION IN A REFERENCE POPULATION, HAS BEEN CONFIRMED THE DECISION THRESHOLD FOR MA DIAGNOSIS. Performed By: #### C MREP #### [facility] [address] [address] [address] Epi Goldstein COVID-19 Detected/Not Detect edOrdered By: Netta Wiseman on 11-05-2022 SARS-CoV-2 (COVID-19) RNA ROWENA+non-probe Ql (Nph) Not detected Not Detecte [facility] Comment on above: This is a duplicate RP2.1 COVID (PCR) result to be used for statistical tracking purpose only. Complete Blood Count Auto Di ffon 11-05-2022 Basophils (Bld) [#/Vol] 0.1 10*3/uL Normal 0.0-0.2 [facility] Comment on above: Performed By: #### E SR, BMP, MG, CBC ####[facility] [address] Basophils/100 WBC (Bld) 0.5 % Normal . [facility] Comment on above: Performed By: #### E SR, BMP, MG, CBC ####[address] Eosinophils (Bld) [#/Vol] 0.1 10*3/uL Normal 0.0-0.45 [facility] Comment on above: Performed By: #### E SR, BMP, MG, CBC ####[address] Eosinophils/100 WBC (Bld) 0.5 % Normal . [facility] Comment on above: Performed By: #### E SR, BMP, MG, CBC ####[address] Erythrocyte distribution width (RBC) [Ratio] 13.2 % Normal 12.0-14.8 [facility] Comment on above: Performed By: #### E SR, BMP, MG, CBC ####[address] Hematocrit (Bld) [Volume fraction] 30.8 % Low 38.8-50.0 [facility] Comment on above: Performed By: #### E SR, BMP, MG, CBC ####[address] Hemoglobin (Bld) [Mass/Vol] 10.2 g/dL Low 13.0-17.0 [facility] Comment on above: Performed By: #### E SR, BMP, MG, CBC ####[address] Lymphocytes (Bld) [#/Vol] 1.5 10*3/uL Normal 1.00-4.8 [facility] Comment on above: Performed By: #### E SR, BMP, MG, CBC ####[address] Lymphocytes/100 WBC (Bld) 8.7 % Normal . [facility] Comment on above: Performed By: #### E SR, BMP, MG, CBC ####[address] MCH (RBC) [Entitic mass] 30.0 pg Normal 27.5-35.2 [facility] Comment on above: Performed By: #### E SR, BMP, MG, CBC ####[address] MCV (RBC) [Entitic vol] 90.7 fL Normal 83.5-101 [facility] Comment on above: Performed By: #### E SR, BMP, MG, CBC ####[address] Mean Corpuscular HGB Conc 33.1 g/dL Normal 32.5-35.6 [facility] Comment on above: Performed By: #### E SR, BMP, MG, CBC ####[address] Monocytes (Bld) [#/Vol] 1.4 10*3/uL High 0.0-0.8 [facility] Comment on above: Performed By: #### E SR, BMP, MG, CBC ####[address] Monocytes/100 WBC (Bld) 8.3 % Normal . [facility] Comment on above: Performed By: #### E SR, BMP, MG, CBC ####[address] Neutrophils (Bld) [#/Vol] 14.3 10*3/uL High 1.8-7.7 [facility] Comment on above: Performed By: #### E SR, BMP, MG, CBC ####[address] Neutrophils/100 WBC (Bld) 82.0 % Normal . [facility] Comment on above: Performed By: #### E SR, BMP, MG, CBC ####[address] NRBC% 0.1 /100{WBC} Normal 0-0.5 [facility] Comment on above: Performed By: #### E SR, BMP, MG, CBC ####[address] Platelet mean volume (Bld) [Entitic vol] 7.8 fL Normal 6.6-10.1 [facility] Comment on above: Performed By: #### E SR, BMP, MG, CBC ####[address] Platelets (Bld) [#/Vol] 319 10*3/uL Normal 150-450 [facility] Comment on above: Performed By: #### E SR, BMP, MG, CBC ####[address] RBC (Bld) [#/Vol] 3.39 10*6/uL Low 3.90-5.60 [facility] Comment on above: Performed By: #### E SR, BMP, MG, CBC ####[address] WBC (Bld) [#/Vol] 17.4 10*3/uL High 4.1-10.5 [facility] Comment on above: Performed By: #### E SR, BMP, MG, CBC ####[address] ECG 12 lead ECGon 11-05-2022 ECG 12 lead ECG Normal [facility] Erythrocyte Sedimentation Ra tristin 11-05-2022 ESR (Bld) [Velocity] 82 mm/h High 0-19 [facility] Comment on above: Result Comment: PERF ORMED BY:[address] [place], [place] [phone] MEDICAL DIRECTORNATI LAUREN M.D. Performed By: #### E SR, BMP, MG, CBC ####[address] Erythrocyte sedimentation ra te by Photometric methodOrdered By: Annabel Boo on 11-05-2022 ESR Photometric method (Bld) [Velocity] 82 mm/hr 0-19 [facility] Gram Stainon 11-05-2022 Microscopic observation Gram stain Nom (Unsp spec) Normal [facility] Comment on above: Performed By: #### G S, AERC ####[place] [id number] [facility] Hepatic Panelon 11-05-2022 Albumin [Mass/Vol] 2.9 g/dL Low 3.5-5.7 [facility] Comment on above: Performed By: #### B BONDING SUPERVISOR, LACTIC, HS TROP, HEPATIC ####[address]#### PROCALCITONIN ####[facility] , Albumin/Globulin [Mass ratio] 1.0 {ratio} Normal [facility] Comment on above: Performed By: #### B BONDING SUPERVISOR, LACTIC, HS TROP, HEPATIC ####[address]#### PROCALCITONIN ####[facility] , ALP [Catalytic activity/Vol] 79 U/L Normal 34-104 [facility] Comment on above: Result Comment: PERF ORMED BY:[address] [place]ZIRosalbaAlfreditoALE, [place] [phone] MEDICAL DIRECTORNATI LAUREN M.D. Performed By: #### B BONDING SUPERVISOR, LACTIC, HS TROP, HEPATIC ####[place] [id number] [facility]#### PROCALCITONIN ####[facility] , ALT [Catalytic activity/Vol] 24 U/L Normal 7-52 [facility] Comment on above: Performed By: #### B BONDING SUPERVISOR, LACTIC, HS TROP, HEPATIC ####[place] [id number] [place]#### PROCALCITONIN ####[facility] , AST [Catalytic activity/Vol] 12 U/L Low 13-39 [facility] Comment on above: Performed By: #### B BONDING SUPERVISOR, LACTIC, HS TROP, HEPATIC ####[address]#### PROCALCITONIN ####[facility] , Bilirubin [Mass/Vol] 0.4 mg/dL Normal 0.3-1.0 [facility] Comment on above: Performed By: #### B BONDING SUPERVISOR, LACTIC, HS TROP, HEPATIC ####[address]#### PROCALCITONIN ####[facility] , Bilirubin,Indirect 0.3 mg/dL Normal [facility] Comment on above: Performed By: #### B BONDING SUPERVISOR, LACTIC, HS TROP, HEPATIC ####[address]#### PROCALCITONIN ####[facility] , Bilirubin.indirect [Mass/Vol] 0.10 mg/dL Normal 0.03-0.18 [facility] Comment on above: Performed By: #### B BONDING SUPERVISOR, LACTIC, HS TROP, HEPATIC ####[address]#### PROCALCITONIN ####[facility] , Globulin (S) [Mass/Vol] 2.8 g/dL Normal [facility] Comment on above: Performed By: #### B BONDING SUPERVISOR, LACTIC, HS TROP, HEPATIC ####[place] [address] [place]#### PROCALCITONIN ####[facility] , Protein [Mass/Vol] 5.7 g/dL Low 6.4-8.9 [facility] Comment on above: Performed By: #### B BONDING SUPERVISOR, LACTIC, HS TROP, HEPATIC ####[place] [address] [place]#### PROCALCITONIN ####[facility] , LACTATE/LACTIC ACIDon 2022 Lactate [Moles/Vol] 1.1 mmol/L Normal 0.4-2.0 [facility] Comment on above: Performed By: #### L ACT #### [facility] [address] [address] [address] Epi Goldstein Lactate [Moles/volume] in Se rum or PlasmaOrdered By: Netta Wiseman on 11-05-2022 Lactate [Moles/Vol] 0.9 mmol/L 0.5-2.2 [facility] Lactic Acidon 11-05-2022 Lactate [Moles/Vol] 0.9 mmol/L Normal 0.5-2.2 [facility] Comment on above: Result Comment: PERF ORMED BY:[address] [place] [place], [place] [phone] MEDICAL DIRECTORNATI LAUREN M.D. Performed By: #### B BONDING SUPERVISOR, LACTIC, HS TROP, HEPATIC ####[address] [place] [address] [facility]#### PROCALCITONIN ####[facility] , Magnesiumon 11-05-2022 Magnesium [Mass/Vol] 1.9 mg/dL Normal 1.9-2.7 [facility] Comment on above: Result Comment: PERF ORMED BY:[address] [place], [place] [phone] MEDICAL DIRECTORNATI LAUREN M.D. Performed By: #### E SR, BMP, MG, CBC ####[address] [address] [facility] Natriuretic peptide B [Mass/ Vol]Ordered By: Netta Wiseman on 11-05-2022 Natriuretic peptide B (Bld) [Mass/Vol] 130.0 pg/mL 5-100 [facility] No Panel InformationOrdered By: Netta Wiseman on 11-05-2022 Arterial Blood pCO2 (Temp correct) 40.4 mm[Hg] 35.0-45.0 [facility] Arterial Blood pH (Temp corrected) 7.41 7.35-7.45 [facility] Arterial Blood pO2 (Temp corrected) 61.0 mm[Hg] 80.0-100.0 [facility] Blood Gas Liter Flow 14 L/min [facility] Procalcitoninon 11-05-2022 Procalcitonin 0.32 ng/mL High 0.00-0.08 [facility] Comment on above: Result Comment: A pr [...] concentrations <2 ng/mL are obtained. Performed at: [facility] [address] [id number] Service Loss Control Consultant: Marla Bravo MD, Phone: [phone] BY:[id number] [place], [place] [phone] MEDICAL DIRECTORNATI LAUREN M.D. Performed By: #### B BONDING SUPERVISOR, LACTIC, HS TROP, HEPATIC ####[facility] [address] [place] [address] [facility]#### PROCALCITONIN ####[facility] , Respiratory (Upper) Panel, P CRon 11-05-2022 Respiratory (Upper) Panel, PCR Normal [facility] Comment on above: Performed By: #### B IOFIRECOVNOTDE, RESP PANEL UPP. ####[facility] [address] [place] [address] [facility] Serum procalcitonin measurem entOrdered By: Netta Wiseman on 11-05-2022 Procalcitonin [Mass/Vol] 0.32 ng/mL 0.00-0.08 [facility] Comment on above: A procalcitonin (PCT ) [...] any concentrations <2 ng/mL are obtained.Performed at: [facility] [address] [id number] Director: Marla Bravo MD, Phone: [phone] Troponin I High Sensitivityo n 11-05-2022 Troponin I High Sensitivity 17.7 pg/mL Normal 0.0-20.0 [facility] Comment on above: Result Comment: PERF ORMED BY:[facility] [place], [place] [phone] MEDICAL DIRECTORNATI LAUREN M.D. Performed By: #### B BONDING SUPERVISOR, LACTIC, HS TROP, HEPATIC ####[facility] [address] [place] [address] [facility]#### PROCALCITONIN ####[facility] , XR chest 1V portableon 11-05 XR chest 1V portable Normal [facility] CARDIAC RON ADMITon 023 CK [Catalytic activity/Vol] 67 U/L Normal 39-308 [facility] Comment on above: Performed By: #### B YOSEPH, CMADM #### [facility] [address] [address] [address] Epi Goldstein CK.MB [Mass/Vol] 0.75 ng/mL Normal <=3.60 [facility] Comment on above: Performed By: #### B YOSEPH, CMADM #### [facility] [address] [address] [address] Epi Goldstein HSTROP 6.4 pg/mL Normal 4.0-76.1 [facility] Comment on above: Result Comment: CUT- OFF POINTS HAVE BEEN ESTABLISHED BASED ON THE FOURTH UNIVERSAL DEFINITIONS OF MYOCARDIAL INFARCTION. THE UPPER REFERENCE LIMIT (URL) OF TROPONIN, DEFINED THE 99TH PERCENTILE OF cTnI DISTRIBUTION IN A REFERENCE POPULATION, HAS BEEN CONFIRMED THE DECISION THRESHOLD FOR MA DIAGNOSIS. Performed By: #### B YOSEPH, CMADM #### [facility] [address] [place] [address] Dr. Epi Goldstein PRATIK 37 ng/mL Normal 16-96 [facility] Comment on above: Performed By: #### B YOSEPH, PATYDM #### [facility] [address] [address] [address] Epi Goldstein CBC AUTO DIFFon 11-04-2022 BASO # 0.0 103/ul Normal 0.0-0.1 [facility] Comment on above: Performed By: #### C BC #### [facility] [address] [address] [address] Epi Goldstein Basophils/100 WBC (Bld) 0.2 % Normal 0.2-2.0 [facility] Comment on above: Performed By: #### C BC #### [facility] [address] [address] [address] Epi Goldstein EO # 0.0 103/ul Normal 0.0-0.7 [facility] Comment on above: Performed By: #### C BC #### [facility] [address] [place] [address] Dr. Epi Goldstein Eosinophils/100 WBC (Bld) 0.2 % Critically low 0.9-7.0 [facility] Comment on above: Performed By: #### C BC #### [facility] [address] [place] [address] Dr. Epi Goldstein Erythrocyte distribution width (RBC) [Ratio] 12.5 % Normal 11.0-15.0 [facility] Comment on above: Performed By: #### C BC #### [facility] [address] [place] [address] Dr. Epi Goldstein Hematocrit (Bld) [Volume fraction] 35.9 % Critically low 42.0-54.0 [facility] Comment on above: Performed By: #### C BC #### [facility] [address] [place] [address] Dr. Epi Goldstein Hemoglobin (Bld) [Mass/Vol] 12.0 g/dL Critically low 14.0-18.0 [facility] Comment on above: Performed By: #### C BC #### [facility] [address] [place] [address] Dr. Epi Goldstein IG # 0.13 10e3/ul Critically high 0.00-0.03 [facility] Comment on above: Performed By: #### C BC #### [facility] [address] [place] [address] Dr. Epi Goldstein IG % 0.6 % Critically high 0.0-0.5 [facility] Comment on above: Performed By: #### C BC #### [facility] [address] [place] [address] Dr. Epi Goldstein LYMPH # 2.7 103/ul Normal 1.2-3.8 [facility] Comment on above: Performed By: #### C BC #### [facility] [address] [place] [address] Dr. Epi Goldstein Lymphocytes/100 WBC (Bld) 13.0 % Critically low 20.5-60.0 [facility] Comment on above: Performed By: #### C BC #### [facility] [address] [place] [address] Dr. Epi Goldstein MANUAL DIFF REQ NO Normal [facility] Comment on above: Performed By: #### C BC #### [facility] [address] [address] [address] Epi Goldstein MCH (RBC) [Entitic mass] 30.5 pg Normal 25.9-34.0 [facility] Comment on above: Performed By: #### C BC #### [facility] [address] [address] [address] Epi Goldstein MCHC (RBC) [Mass/Vol] 33.4 g/dL Normal 29.9-35.2 [facility] Comment on above: Performed By: #### C BC #### [facility] [address] [address] [address] Epi Goldstein MCV (RBC) [Entitic vol] 91.1 fL Normal 80.0-94.0 [facility] Comment on above: Performed By: #### C BC #### [facility] [address] [place] [address] Dr. Epi Goldstein MONO # 1.7 103/ul Critically high 0.3-0.8 [facility] Comment on above: Performed By: #### C BC #### [facility] [address] [address] [address] Epi Goldstein Monocytes/100 WBC (Bld) 8.4 % Normal 1.7-12.0 [facility] Comment on above: Performed By: #### C BC #### [facility] [address] [address] [address] Epi Goldstein NEUT # 16.0 103/ul Critically high 1.4-6.5 [facility] Comment on above: Performed By: #### C BC #### [facility] [address] [address] [address] Epi Goldstein Neutrophils/100 WBC (Bld) 77.6 % Critically high 43.0-75.0 [facility] Comment on above: Performed By: #### C BC #### [facility] [address] [address] [address] Epi Goldstein Platelet mean volume (Bld) [Entitic vol] 9.9 fL Normal 9.5-13.5 [facility] Comment on above: Performed By: #### C BC #### [facility] [address] [place], [place] [address] Dr. Epi Goldstein PLT 359 103/ul Normal 150-450 [facility] Comment on above: Performed By: #### C BC #### [facility] [address] [place], [place] [address] Dr. Epi Goldstein RBC 3.94 106/ul Critically low 4.70-6.10 [facility] Comment on above: Performed By: #### C BC #### [facility] [address] [place], [place] [address] Dr. Epi Goldstein WBC 20.6 103/ul Critically high 4.0-11.0 [facility] Comment on above: Result Comment: revi ewed slide to confirm Performed By: #### C BC #### [facility] [address] [address] [address] Epi Goldstein CTA CHEST WO W [...] by: SKYE WOODS Date: 2022-11-04 21:02 Normal [facility] CULTURE BLOODon 11-04-2022 Microscopic examination of blood, culture Culture Observations: NO GROWTH AT 5 DAYS. Normal [facility] Comment on above: Performed By: #### L ACT #### [facility] [address] [address] [address] Epi Goldstein Microscopic examination of blood, culture Culture Observations: NO GROWTH AT 5 DAYS. Normal [facility] Comment on above: Performed By: #### L ACT #### [facility] [address] [address] [address] Epi Goldstein D-DIMERon 11-04-2022 D-DIMER 0.96 mg/L FEU Critically high <=0.[address] [facility] Comment on above: Performed By: #### D DIM #### [facility] [address] [address] [address] Epi Goldstein D-DIMER COMMENTS SEE BELOW Normal [facility] Comment on above: Result Comment: Incr eases [...] hospitalization. Performed By: #### D DIM #### [facility] [address] [place] [address] Dr. Epi Goldstein LACTATE/LACTIC ACIDon 2022 Lactate [Moles/Vol] 0.8 mmol/L Normal 0.4-2.0 [facility] [place] [facility] Comment on above: Performed By: #### L ACT #### [facility] [address] [place] [address] Dr. Epi Goldstein PROF CHEM 8 (BAS METB)on Anion gap [Moles/Vol] 9.2 mmol/L Normal [facility] Comment on above: Performed By: #### B YOSEPH, PATYDM #### [facility] [address] [place] [address] Dr. Epi Goldstein Calcium [Mass/Vol] 8.9 mg/dL Normal 8.5-10.[address] [facility] Comment on above: Performed By: #### B YOSEPH, PATYDM #### [facility] [address] [place] [address] Dr. Epi Goldstein Chloride [Moles/Vol] 101 mmol/L Normal 98-107 [facility] Comment on above: Performed By: #### B YOSEPH, CMADM #### [facility] [address] [place] [address] Dr. Epi Goldstein CO2 [Moles/Vol] 29.1 mmol/L Normal 21.0-32.0 [facility] Comment on above: Performed By: #### B YOSEPH, CMADM #### [facility] [address] [place] [address] Dr. Epi Goldstein Creatinine [Mass/Vol] 0.71 mg/dL Normal 0.70-1.30 [facility] Comment on above: Performed By: #### B YOSEPH, CMADM #### [facility] [address] [place] [address] Dr. Epi Goldstein EGFR-AF LITHUANIAN >60 Normal >=60 [facility] Comment on above: Performed By: #### B YOSEPH, CMADM #### [facility] [address] [address] [address] Epi Goldstein EGFR-NON AF LITHUANIAN >60 Normal >=60 [facility] Comment on above: Performed By: #### B YOSEPH, CMADM #### [facility] [address] [address] [address] Epi Goldstein Glucose [Mass/Vol] 105 mg/dL Normal 74-[address] [facility] Comment on above: Performed By: #### B YOSEPH, CMADM #### [facility] [address] [address] [address] Epi Goldstein Potassium [Moles/Vol] 3.3 mmol/L Critically low 3.5-5.1 [facility] Comment on above: Performed By: #### B YOSEPH, CMADM #### [facility] [address] [place] [address] Dr. Epi Goldstein Sodium [Moles/Vol] 136 mmol/L Normal 136-145 [facility] Comment on above: Performed By: #### B YOSEPH, CMADM #### [facility] [address] [place] [address] Dr. Epi Goldstein Urea nitrogen [Mass/Vol] 10.0 mg/dL Normal 7.0-18.0 [facility] Comment on above: Performed By: #### B YOSEPH, CMADM #### [facility] [address] [place] [address] Dr. Epi Goldstein Urea nitrogen/Creatinine [Mass ratio] 14.1 mg/mg Normal [facility] Comment on above: Performed By: #### B YOSEPH, CMADM #### [facility] [address] [place] [address] Dr. Epi Goldstein RESPIRATORY PANEL PLUSon Adenovirus Not detected Normal NOT DETECTED [facility] Comment on above: Performed By: #### R SPLUS #### [facility] [address] [place] [address] Dr. Epi Hernandez. Parapertusis Not detected Normal NOT DETECTED [facility] Comment on above: Performed By: #### R SPLUS #### [facility] [address] [place] [address] Dr. Epi Miller Pertussis Not detected Normal NOT DETECTED [facility] Comment on above: Performed By: #### R SPLUS #### [facility] [address] [place] [address] Dr. Epi Goldstein Chlamydia Pneumoniae Not detected Normal NOT DETECTED [facility] Comment on above: Performed By: #### R SPLUS #### [facility] [address] [place] [address] Dr. Epi Goldstein Coronavirus 229E Not detected Normal NOT DETECTED [facility] Comment on above: Performed By: #### R SPLUS #### [facility] [address] [place] [address] Dr. Epi Goldstein Coronavirus HKU1 Not detected Normal NOT DETECTED [facility] Comment on above: Performed By: #### R SPLUS #### [facility] [address] [place] [address] Dr. Epi Goldstein Coronavirus NL63 Not detected Normal NOT DETECTED [facility] Comment on above: Performed By: #### R SPLUS #### [facility] [address] [place] [address] Dr. Epi Goldstein Coronavirus OC43 Not detected Normal NOT DETECTED [facility] Comment on above: Performed By: #### R SPLUS #### [facility] [address] [place] [address] Dr. Epi Goldstein Influenza A H1 Not detected Normal NOT DETECTED [facility] Comment on above: Performed By: #### R SPLUS #### [facility] [address] [place] [address] Dr. Epi Goldstein Influenza A H1 2009 Not detected Normal NOT DETECTED [facility] Comment on above: Performed By: #### R SPLUS #### [facility] [address] [place] [address] Dr. Epi Goldstein Influenza A H3 Not detected Normal NOT DETECTED [facility] Comment on above: Performed By: #### R SPLUS #### [facility] [address] [place] [address] Dr. Epi Goldstein Influenza B Not detected Normal NOT DETECTED [facility] Comment on above: Performed By: #### R SPLUS #### [facility] [address] [place] [address] Dr. Epi Goldstein Metapneumovirus Not detected Normal NOT DETECTED [facility] Comment on above: Performed By: #### R SPLUS #### [facility] [address] [place] [address] Dr. Epi Goldstein Mycoplas. Pneumoniae Not detected Normal NOT DETECTED [facility] Comment on above: Performed By: #### R SPLUS #### [facility] [address] [place] [address] Dr. Epi Goldstein Parainfluenza 1 Not detected Normal NOT DETECTED [facility] Comment on above: Performed By: #### R SPLUS #### [facility] [address] [place] [address] Dr. Epi Goldstein Parainfluenza 2 Not detected Normal NOT DETECTED [facility] Comment on above: Performed By: #### R SPLUS #### [facility] [address] [place] [address] Dr. Epi Goldstein Parainfluenza 3 Not detected Normal NOT DETECTED [facility] Comment on above: Performed By: #### R SPLUS #### [facility] [address] [place] [address] Dr. Epi Goldstein Parainfluenza 4 Not detected Normal NOT DETECTED [facility] Comment on above: Performed By: #### R SPLUS #### [facility] [address] [place] [address] Dr. Epi Goldstein Rhino/Enterovirus Not detected Normal NOT DETECTED [facility] Comment on above: Performed By: #### R SPLUS #### [facility] [address] [place] [address] Dr. Epi NIXON Header 1 RESPIRATORY PANEL: VIRUSES Normal [facility] Comment on above: Performed By: #### R SPLUS #### [facility] [address] [place] [address] Dr. Epi NIXON Header 2 RESPIRATORY PANEL: BACTERIA Normal [facility] Comment on above: Performed By: #### R SPLUS #### [facility] [address] [address] [address] Epi Goldstein RSV Not detected Normal NOT DETECTED [facility] Comment on above: Performed By: #### R SPLUS #### [facility] [address] [address] [address] Epi Goldstein SARS-CoV-2 (COVID-19) RNA ROWENA+probe Ql (Unsp spec) Not detected Normal NOT DETECTED [facility] Comment on above: Performed By: #### R SPLUS #### [facility] [address] [place] [address] Dr. Epi Goldstein Covid-19 PCR ([facility])on 08-10 SARS-CoV-2 (COVID-19) RNA ROWENA+probe Ql (Unsp spec) Not detected Normal NOT DETECTED [facility] Comment on above: Result Comment: When [...] for this test is supported by the [place] of Health and Human Service's declaration that [...] used). Performed By: #### L ACT #### [facility] [address] [place] [address] Dr. Epi Goldstein INFLUENZA A AND B AGon 08-27 INFLUANEGH SEE BELOW Normal [facility] Comment on above: Result Comment: Nega tive for Flu A protein angiten. Infection due to Flu A cannot be ruled out. Flu A angiten in the sample may be below the detection limit of the test. Performed By: #### L ACT #### [facility] [address] [place] [address] Dr. Epi Goldstein [facility] SEE BELOW Normal [facility] Comment on above: Result Comment: Nega tive for Flu B protein antigen. Infection due to Flu B cannot be ruled out. Flu B antigen in the sample may be below the detection limit of the test. Performed By: #### L ACT #### [facility] [address] [place] [address] Dr. Epi Goldstein INFLUENZA A AG Negative Normal NEGATIVE SEE COMMENT [facility] Comment on above: Performed By: #### L ACT #### [facility] [address] [place] [address] Dr. Epi Goldstein INFLUENZA B AG Negative Normal NEGATIVE SEE COMMENT [facility] Comment on above: Performed By: #### L ACT #### [facility] [address] [place] [address] Dr. Epi Goldstein XR CHEST 1 Von [...] LORI RODRIGUEZ Date: 2022-08-27 20:19 Normal [facility] COVID/FLU/RSV RT-PCRon 07-07 SARS-CoV-2 (COVID-19) RNA ROWENA+probe Ql (Unsp spec) Positive [facility] Other COVID/FLU/RSV RT-PCR Negative [facility] Other CBC AUTO DIFFon 03-12-2022 BASO # 0.1 103/ul Normal 0.0-0.1 [facility] Comment on above: Performed By: #### C BC #### [facility] [address] [place] [address] Dr. Epi Goldstein Basophils/100 WBC (Bld) 0.9 % Normal 0.2-2.0 [facility] Comment on above: Performed By: #### C BC #### [facility] [address] [place] [address] Dr. Epi Goldstein EO # 0.4 103/ul Normal 0.0-0.7 [facility] Comment on above: Performed By: #### C BC #### [facility] [address] [place] [address] Dr. Epi Goldstein Eosinophils/100 WBC (Bld) 4.4 % Normal 0.9-7.0 [facility] Comment on above: Performed By: #### C BC #### [facility] [address] [place] [address] Dr. Epi Goldstein Erythrocyte distribution width (RBC) [Ratio] 12.4 % Normal 11.0-15.0 [facility] Comment on above: Performed By: #### C BC #### [facility] [address] [place] [address] Dr. Epi Goldstein Hematocrit (Bld) [Volume fraction] 35.1 % Critically low 42.0-54.0 [facility] Comment on above: Performed By: #### C BC #### [facility] [address] [place] [address] Dr. Epi Goldstein Hemoglobin (Bld) [Mass/Vol] 11.8 g/dL Critically low 14.0-18.0 [facility] Comment on above: Performed By: #### C BC #### [facility] [address] [place] [address] Dr. Epi Goldstein IG # 0.02 10e3/ul Normal 0.00-0.03 [facility] Comment on above: Performed By: #### C BC #### [facility] [address] [place] [address] Dr. Epi Goldstein IG % 0.2 % Normal 0.0-0.5 [facility] Comment on above: Performed By: #### C BC #### [facility] [address] [place] [address] Dr. Epi Goldstein LYMPH # 2.9 103/ul Normal 1.2-3.8 [facility] Comment on above: Performed By: #### C BC #### [facility] [address] [place] [address] Dr. Epi Goldstein Lymphocytes/100 WBC (Bld) 29.8 % Normal 20.5-60.0 [facility] Comment on above: Performed By: #### C BC #### [facility] [address] [place] [address] Dr. Epi Goldstein MANUAL DIFF REQ NO Normal [facility] Comment on above: Performed By: #### C BC #### [facility] [address] [place] [address] Dr. Epi Goldstein MCH (RBC) [Entitic mass] 30.7 pg Normal 25.9-34.0 [facility] Comment on above: Performed By: #### C BC #### [facility] [address] [place] [address] Dr. Epi Goldstein MCHC (RBC) [Mass/Vol] 33.6 g/dL Normal 29.9-35.2 [facility] Comment on above: Performed By: #### C BC #### [facility] [address] [place] [address] Dr. Epi Goldstein MCV (RBC) [Entitic vol] 91.4 fL Normal 80.0-94.0 [facility] Comment on above: Performed By: #### C BC #### [facility] [address] [place] [address] Dr. Epi Goldstein MONO # 0.8 103/ul Normal 0.3-0.8 [facility] Comment on above: Performed By: #### C BC #### [facility] [address] [place] [address] Dr. Epi Goldstein Monocytes/100 WBC (Bld) 8.1 % Normal 1.7-12.0 [facility] Comment on above: Performed By: #### C BC #### [facility] [address] [place] [address] Dr. Epi Goldstein NEUT # 5.5 103/ul Normal 1.4-6.5 [facility] Comment on above: Performed By: #### C BC #### [facility] [address] [address] [address] Epi Goldstein Neutrophils/100 WBC (Bld) 56.6 % Normal 43.0-75.0 [facility] Comment on above: Performed By: #### C BC #### [facility] [address] [address] [address] Epi Goldstein Platelet mean volume (Bld) [Entitic vol] 10.2 fL Normal 9.5-13.5 [facility] Comment on above: Performed By: #### C BC #### [facility] [address] [address] [address] Epi Goldstein PLT 237 103/ul Normal 150-450 [facility] Comment on above: Performed By: #### C BC #### [facility] [address] [place] [address] Dr. Epi Goldstein RBC 3.84 106/ul Critically low 4.70-6.10 [facility] Comment on above: Performed By: #### C BC #### [facility] [address] [address] [address] Epi Goldstein WBC 9.7 103/ul Normal 4.0-11.0 [facility] Comment on above: Performed By: #### C BC #### [facility] [address] [place] [address] Dr. Epi Goldstein PROF CHEM 8 (BAS METB)on Anion gap [Moles/Vol] 13.2 mmol/L Normal [facility] Comment on above: Performed By: #### B MP #### [facility] [address] [address] [address] Epi Goldstein Calcium [Mass/Vol] 8.3 mg/dL Critically low 8.5-10.1 [facility] Comment on above: Performed By: #### B MP #### [facility] [address] [place] [address] Dr. Epi Goldstein Chloride [Moles/Vol] 105 mmol/L Normal 98-107 [facility] Comment on above: Performed By: #### B MP #### [facility] [address] [address] [address] Epi Goldstein CO2 [Moles/Vol] 26.7 mmol/L Normal 21.0-32.0 [facility] Comment on above: Performed By: #### B MP #### [facility] [address] [address] [address] Epi Goldstein Creatinine [Mass/Vol] 0.76 mg/dL Normal 0.70-1.30 [facility] Comment on above: Performed By: #### B MP #### [facility] [address] [address] [address] Epi Goldstein EGFR-AF LITHUANIAN >60 Normal >=60 [facility] Comment on above: Performed By: #### B MP #### [facility] [address] [address] [address] Epi Goldstein EGFR-NON AF LITHUANIAN >60 Normal >=60 [facility] Comment on above: Performed By: #### B MP #### [facility] [address] [address] [address] Epi Goldstein Glucose [Mass/Vol] 127 mg/dL Critically high 74-106 [facility] Comment on above: Performed By: #### B MP #### [facility] [address] [address] [address] Epi Goldstein Potassium [Moles/Vol] 3.9 mmol/L Normal 3.5-5.1 [facility] Comment on above: Performed By: #### B MP #### [facility] [address] [address] [address] Epi Goldstein Sodium [Moles/Vol] 141 mmol/L Normal 136-[address] [facility] Comment on above: Performed By: #### B MP #### [facility] [address] [address] [address] Epi Goldstein Urea nitrogen [Mass/Vol] 14.0 mg/dL Normal 7.0-18.0 [facility] Comment on above: Performed By: #### B MP #### [facility] [address] [address] [address] Epi Goldstein Urea nitrogen/Creatinine [Mass ratio] 18.4 mg/mg Normal [facility] Comment on above: Performed By: #### B #### [facility] [address] [place] [address] Dr. Epi Goldstein US JAMES DOP LEG LTon 03-12-20 22 US JAMES DOP LEG LT US JAMES [...] by: LORI DOWNEY Date: 2022-03-12 13:59 Normal [facility] XR TIB_FIB LT 2Von 2 XR TIB_FIB [...] Diffuse soft tissue swelling. Electronically authenticated by: EMRI SIMPSON Date: 2022-03-12 14:19 Normal [facility] CNOVon 12-14-2018 CNOV Office Visit (PAINLN ) ----- LORI ANTON ([id number]) 1965 M Date Time Provider Department 12/14/18 10:15 AM STEVE WILSNO During your visit today, we recorded the following information about you: Pulse Weight 63/minute 104.8 kg Steve Wilson DO 12/14/2018 10:53 AM Signed [facility] Initial Evaluation December 14, 2018 - 9:54 AM This appointment was requested by Bryce CUADRA, for my medical opinion regarding? the evaluation and management of the patient's LORI Anton problems, and my final recommendations will be communicated to the requesting health care provider by way of the shared medical record for internal providers or letter via the [employer] for external providers. 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 Pediatric Cns: No Passive conservative therapy lasting 6 weeks [...] Apr ?4 2019 ?XR KNEE 4V AP/PA/LAT/MERCH RIAY ? Left. For patient's age the medial [...] - December 14, 2018 by Steve Wilson, DO HPI AND ASSESSMENT: LORI Anton is [...] Wilson, December 14, 2018 Referring Provider: BRYCE LOVE (KHALIF) [[id number]] Allergies As of Date: 12/14/2018 Noted Allergy [...] knee [M25.561, G89.29] Order(s):CONSULT TO PHYSICAL THERAPY [9024] Order #: [id number]: 1 tiZANidine (ZANAFLEX) 4 mg tabletTake 1 [...] Status:Closed by STEVE WILSON DO on 12/14/18 [facility] CN Office Visit (LOORRM ) ----- PATRICIALORI Patino ([id number]) 1965 M Date Time Provider Department 12/14/18 9:00 AM BRYCE LOVE) LOORRJayesh During your visit today, we recorded the following information about you: Bryce Love PA-C 12/14/2018 9:30 AM Signed HISTORY OF [...] evaluation for his back. PROCEDURE: None. Bryce Love PA-C Referring Provider: SELF [[id number]] Allergies As [...] CONSULT TO PHYSICAL THERAPY [9032] Order #: [id number]: 1 CONSULT TO PAIN MGT ANESTHESIA [[id number]] Order #: [id number]: 1 Prescriptions as of 12/14/2018 Sig: CARVEDILOL [...] Disc: Side Effects Encounter Status:Closed by BRYCE LOVE on 12/14/18 Normal [facility] PROGRESSon 12-14-2018 Protein mass conc HNO ID: [id number] Author: Steve Wilson Service: ? Author Type: Physician Type: Progress Notes Filed: 12/14/2018 10:53 AM Note Text: [facility] Initial Evaluation December 14, 2018 - 9:54 AM This appointment was requested by Bryce CUADRA, for my medical opinion regarding? the evaluation and management of the patient's LORI Anton problems, and my final recommendations will be communicated to the requesting health care provider by way of the shared medical record for internal providers or letter via the [employer] for external providers. 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 Pediatric Cns: No Passive conservative therapy lasting 6 weeks [...] moderate degenerative spondylosis and facet osteoarthritis Apr ? 2019 ?XR KNEE 4V AP/PA/LAT/MERCH RIYA ? [...] Anton's care. Steve Wilson, December 14, 2018 Normal [facility] Protein mass conc HNO ID: [id number] Author: Bryce Love (Pa) Service: ? Author Type: Physician Verify Rep Type: Progress Notes Filed: 12/14/2018 9:30 AM [...] evaluation for his back. PROCEDURE: None. Bryce Love PA-C Normal [facility] CNOVon 10-11-2018 CNOV Office Visit (LOORRM ) ----- LORI ANTON ([id number]) 1965 M Date Time Provider Department 10/11/18 [...] in your family? 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 Service: ? Author [...] in your family? 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 Theodore Gonzalez Jr, MD [facility] Protein mass conc HNO ID: [id number] Author: Pallavi Pritchett (Rt) Vinh Glass Service: ? Author Type: Performance Management Consultant Type: Progress Notes Filed: 10/11/2018 10:07 AM [...] RT Wendy October 11, 2018 10:07 AM [facility] XR KNEE 4V AP/PA/LAT/MERCH B ILon 10-11-2018 [...] age. 2.1 cm left posterolateral joint body. Fish Filleter: PSCB Transcribe Date/Time: Oct 11 2018 10:14A Dictated by : ACE BUSTAMANTE MD This examination was interpreted and the report reviewed and electronically signed by: ACE BUSTAMANTE MD on Oct 11 2018 10:18AM EST [id number] Normal [facility] Vital Signs Date Time Vital Sign Value Performing Clinician Facility 05-02-2024 16:10-0400 Body height 190.5 cm Shaista Cj BONDING SUPERVISOR Work Phone: [facility] 05-02-2024 16:10-0400 Body mass index (BMI) [Ratio] 27.05 kg/m2 Shaista Cj BONDING SUPERVISOR Work Phone: [facility] 05-02-2024 16:10-0400 Body temperature 98.8 [degF] Shaista Robintheron BONDING SUPERVISOR Work Phone: [facility] 05-02-2024 16:10-0400 Body weight 98.16 kg Shaista Robintheron BONDING SUPERVISOR Work Phone: [facility] 05-02-2024 16:10-0400 Diastolic blood pressure 86 mm[Hg] Shaista Cj BONDING SUPERVISOR Work Phone: [facility] 05-02-2024 16:10-0400 Heart rate 76 /min Shaista Machadosheila BONDING SUPERVISOR Work Phone: [facility] 05-02-2024 16:10-0400 Respiratory rate 18 /min Shaista Cj BONDING SUPERVISOR Work Phone: [facility] 05-02-2024 16:10-0400 SaO2% (BldA) [Mass fraction] 98 % Shaista Aichholz BONDING SUPERVISOR Work Phone: [facility] 05-02-2024 16:10-0400 Systolic blood pressure 138 mm[Hg] Shaista Aichholz BONDING SUPERVISOR Work Phone: [facility] 07-31-2023 19:51-0500 Body height 190.5 cm Shaista Aichholz Work Phone: [facility] 07-31-2023 19:51-0500 Body temperature 100.1 [degF] Shaista Aichholz Work Phone: [facility] 07-31-2023 19:51-0500 Body weight 92.98 kg Shaista Aichholz Work Phone: [facility] 07-31-2023 19:51-0500 Diastolic blood pressure 78 mm[Hg] Shaista Aichholz Work Phone: [facility] 07-31-2023 19:51-0500 Heart rate 96 /min Shaista Aichholz Work Phone: [facility] 07-31-2023 19:51-0500 Respiratory rate 16 /min Shaista Aichholz Work Phone: [facility] 07-31-2023 19:51-0500 SaO2% (BldA) [Mass fraction] 98 % Shaista Aichholz Work Phone: [facility] 07-31-2023 19:51-0500 Systolic blood pressure 133 mm[Hg] Shaista Aichholz Work Phone: [facility] 12-28-2022 08:30-0400 Body height 190.5 cm Ismael Juáreztrinity Other [facility] Other 12-28-2022 08:30-0400 Body mass index (BMI) [Ratio] 25.77 kg/m2 Ismael Huitron Other [facility] Other 12-28-2022 08:30-0400 Body temperature 98.1 [degF] Ismael Huitron Other [facility] Other 12-28-2022 08:30-0400 Body weight 93.53 kg Ismael Huitron Other [facility] Other 12-28-2022 08:30-0400 Diastolic blood pressure 92 mm[Hg] Ismael Huitron Other [facility] Other 12-28-2022 08:30-0400 Respiratory rate 20 /min Ismael Huitron Other [facility] Other 12-28-2022 08:30-0400 SaO2% (BldA) [Mass fraction] 98 % Ismael Huitron Other [facility] Other 12-28-2022 08:30-0400 Systolic blood pressure 152 mm[Hg] Ismael Huitron Other [facility] Other 12-08-2022 21:30-0400 Diastolic blood pressure 87 mm[Hg] Shaista Aichholz Work Phone: [facility] 12-08-2022 21:30-0400 Heart rate 65 /min Shaista Aichholz Work Phone: [facility] 12-08-2022 21:30-0400 Respiratory rate 18 /min Shaista Aichholz Work Phone: [facility] 12-08-2022 21:30-0400 SaO2% (BldA) [Mass fraction] 96 % Shaista Aichholz Work Phone: [facility] 12-08-2022 21:30-0400 Systolic blood pressure 134 mm[Hg] Shaista Aichholz Work Phone: [facility] 12-08-2022 19:30-0400 Body temperature 98.1 [degF] Shaista Aichholz Work Phone: [facility] 12-08-2022 17:36-0400 Body height 190.5 cm Shaista Aichholz Work Phone: [facility] 12-08-2022 17:36-0400 Body weight 91.1 kg Shaista Aichholz Work Phone: [facility] 11-21-2022 12:00-0400 Body temperature 98.1 [degF] Shaista Aichholz Work Phone: [facility] 11-21-2022 12:00-0400 Diastolic blood pressure 73 mm[Hg] Shaista Aichholz Work Phone: [facility] 11-21-2022 12:00-0400 Heart rate 74 /min Shaista Aichholz Work Phone: [facility] 11-21-2022 12:00-0400 Inhaled oxygen flow rate 4 L/min Shaista Aichholz Work Phone: [facility] 11-21-2022 12:00-0400 Respiratory rate 18 /min Shaista Aichholz Work Phone: [facility] 11-21-2022 12:00-0400 SaO2% (BldA) [Mass fraction] 95 % Shaista Aichholz Work Phone: [facility] 11-21-2022 12:00-0400 Systolic blood pressure 135 mm[Hg] Shaista Aichholz Work Phone: [facility] 11-21-2022 03:52-0400 Body weight 97.1 kg Shaista Aichholz Work Phone: [facility] 11-18-2022 09:00-0400 Inhaled oxygen concentration 40 % Shaista Corona Work Phone: [facility] 11-17-2022 13:54-0400 Body height 190.5 cm Shaista Corona Work Phone: [facility] 07-07-2022 17:45-0500 Body height 190.5 cm Supriya Kevin Other [facility] Other 07-07-2022 17:45-0500 Body mass index (BMI) [Ratio] 28.12 kg/m2 Supriya Kevin Other [facility] Other 07-07-2022 17:45-0500 Body temperature 100.5 [degF] Supriya Brown Other [facility] Other 07-07-2022 17:45-0500 Body weight 102.06 kg Supriay Kevin Other [facility] Other 07-07-2022 17:45-0500 Diastolic blood pressure 84 mm[Hg] Supriya Brown Other [facility] Other 07-07-2022 17:45-0500 Respiratory rate 18 /min Supriya Brown Other [facility] Other 07-07-2022 17:45-0500 SaO2% (BldA) [Mass fraction] 97 % Supriya Brown Other [facility] Other 07-07-2022 17:45-0500 Systolic blood pressure 123 mm[Hg] Supriya Brown Other [employer] Other Encounters Encounter Date Encounter Type Care Provider Facility Start: 05-02-2024 End: 05-02-2024 Office outpatient visit 25 minutes Shaista Jeannettesanjaytheron BONDING SUPERVISOR Work Phone: [facility] Comment on above: Bilateral leg edema (Primary Dx); Primary hypertension (CMS/HCC); Benign prostatic hyperplasia with weak urinary stream; Tobacco user Start: 05-02-2024 End: 05-02-2024 ambulatory SHAISTA AICHHOLZ Not Available Start: 05-02-2024 End: 05-02-2024 Bamboo flowsheet Shaista Cj BONDING SUPERVISOR Work Phone: [facility] Start: 05-02-2024 End: 05-02-2024 Clinisync Result Encounter Shaista Robintheron BONDING SUPERVISOR Work Phone: [facility] Unsolicited Start: 05-02-2024 End: 05-02-2024 Clinisync Result Encounter Shaista Robintheron BONDING SUPERVISOR Work Phone: [facility] Unsolicited Start: 04-24-2024 End: 04-24-2024 ambulatory Gregg PATTEN Facility:[facility] Start: 02-29-2024 Patient encounter status Shaista Robintheron BONDING SUPERVISOR Work Phone: [facility] Start: 02-29-2024 End: 02-29-2024 ambulatory SHAISTA AICHHOLZ Not Available Start: 11-30-2023 End: 11-30-2023 ambulatory Sagar Orta Facility:[facility] Start: 11-29-2023 End: 11-29-2023 ambulatory SHAISTA AICHHOLZ Not Available Start: 10-31-2023 End: 10-31-2023 ambulatory SHAISTA AICHHOLZ Not Available Start: 08-30-2023 End: 08-30-2023 ambulatory SHAISTA AICHHOLZ Not Available Start: 07-31-2023 End: 08-01-2023 Emergency department patient visit Ej Garcia Facility:[facility] Start: 07-31-2023 End: 07-31-2023 Emergency department patient visit Shaista Jeannettesanjayisiahlorna Work Phone: [facility] Work Phone: Start: 05-23-2023 End: 05-23-2023 ambulatory Gregg PATTEN Facility:[facility] Start: 12-28-2022 End: 12-28-2022 ambulatory Ismael Huitron Other [facility] Other Start: 12-28-2022 Office outpatient vi sit 25 minutes Kamdevon Huitron [facility] Start: 12-26-2022 End: 12-26-2022 ambulatory Shaista Remedios Corona Facility:[facility] Start: 12-26-2022 End: 12-26-2022 ambulatory Shaista Remedios Corona Work Phone: [facility] Work Phone: Start: 12-26-2022 End: 12-26-2022 Patient encounter procedure Shaista Jeannettesanjayisiahlorna Work Phone: [facility] [place] Work Phone: Start: 12-08-2022 End: 12-08-2022 Emergency department patient visit Lisha Silva Facility:[facility] Start: 12-08-2022 End: 12-08-2022 Emergency department patient visit Shaista Cj Work Phone: [facility] Work Phone: Start: 11-05-2022 End: 11-21-2022 Evaluation and management of inpatient Sanjay Holt Facility:[facility] Start: 11-05-2022 End: 11-21-2022 Evaluation and management of inpatient Shaista Cj Work Phone: [facility] Work Phone: Start: 11-04-2022 End: 11-05-2022 ambulatory RETAIL SELLING FLOOR LEADER SHAISTA CORONA Facility:[facility] Start: 11-03-2022 End: 11-03-2022 ambulatory RETAIL SELLING FLOOR LEADER SHAISTA ROBINISIAHLorna Facility:[facility] Start: 08-27-2022 End: 08-27-2022 ambulatory CATRACHITO ALONZO . Facility:[facility] Start: 07-07-2022 End: 07-07-2022 ambulatory Supriya Zapataault Other [place] [employer] Other Start: 07-07-2022 Office outpatient ne w 20 minutes Supriya Kevin [facility] Start: 03-12-2022 End: 03-12-2022 ambulatory RETAIL SELLING FLOOR LEADER SHAISTA ROBINISIAHLorna Facility:[facility] Procedures Date Procedure Procedure Detail Performing Clinician Start: 05-02-2024 ALL CBC WITH AUTO DIFF Shaista Cj BONDING SUPERVISOR Work Phone: Start: 07-31-2023 SARS-CoV-2, Influenz a & RSV (PCR) Shaista Corona Work Phone: Start: 12-26-2022 Plain chest X-ray Shaista Cj Work Phone: Start: 12-08-2022 CT angiography of thorax Shaista Cj Work Phone: Start: 11-20-2022 Plain chest X-ray Shaista Cj Work Phone: Start: 11-18-2022 Plain chest X-ray Shaista Cj Work Phone: Start: 11-17-2022 Aerobic microbial culture Shaista Cj Work Phone: Start: 11-17-2022 Blood culture for ba cteria, including anaerobic screen Shaista Corona Work Phone: Start: 11-17-2022 Investigation of transfusion reaction Shaista Corona Work Phone: Start: 11-17-2022 Plain chest X-ray Shaista Corona Work Phone: Start: 11-16-2022 Urine culture Shaista huang Work Phone: Start: 11-16-2022 CT angiography of thorax Shaista Lobitoholz Work Phone: Start: 11-16-2022 Plain chest X-ray Shaista Aichholz Work Phone: Start: 11-15-2022 Plain chest X-ray Shaista Aichholz Work Phone: Start: 11-14-2022 DH Bronchoscopy Flex ible (Not Applicable) Shaista Aichholz Work Phone: Start: 11-14-2022 End: 11-14-2022 Plain chest X-ray Shaista Aichholz Work Phone: Start: 11-13-2022 Plain chest X-ray Shaista Jenanettehholz Work Phone: Start: 11-12-2022 Duplex scan of lower limb veins Shaista Jeannettehholz Work Phone: Start: 11-12-2022 End: 11-12-2022 Plain chest X-ray Shaista Aichholz Work Phone: Start: 11-11-2022 Plain chest X-ray Shaista Lobitoholz Work Phone: Start: 11-10-2022 End: 11-10-2022 Plain chest X-ray Shaista Aichholz Work Phone: Start: 11-09-2022 End: 11-09-2022 Plain chest X-ray Shaista Aicsanjayholz Work Phone: Start: 11-08-2022 End: 11-08-2022 Plain chest X-ray Shaista Aichholz Work Phone: Start: 11-07-2022 Plain chest X-ray Shaista Aichholz Work Phone: Start: 11-07-2022 End: 11-07-2022 Plain chest X-ray Shaista Aichholz Work Phone: Start: 11-06-2022 CT of thorax with contrast Shaista Aichholz Work Phone: Start: 11-05-2022 Plain chest X-ray Shaista Corona Work Phone: Plan of Treatment Date Care Activity Detail Author Start: 08-30-2024 Screening for malignant neoplasm of colon Colorectal Cancer Screening [facility] Comment on above: Postponed from 1965 (Patient Refus ed) Start: 05-23-2024 End: 05-23-2024 Patient encounter procedure 05/23/2024 9:00 AM EST Office Visit [facility] [address] [place] [address] Shaista Corona, BONDING SUPERVISOR [address] [place] [phone] [facility] Start: 05-02-2024 End: 05-02-2024 Patient encounter procedure 05/02/2024 4:00 PM EDT [facility] [address] [place] [address] Shaista Corona, BONDING SUPERVISOR [address] [place] [phone] Arrived [facility] Comment on above: Arrived Start: 05-02-2024 End: 05-02-2025 Bacteria identified in Urine by Culture Urine culture (clean catch) Microbiology Routine Bilateral leg edema Expected: 05/02/2024 (Approximate), Expires: 05/02/2025 [facility] Comment on above: Expected: 05/02/2024 (Approximate), Expi res: 05/02/2025 Start: 05-02-2024 End: 05-02-2025 CBC W Auto Differential panel - Blood CBC and differential Lab Routine Bilateral leg edema Expected: 05/02/2024 (Approximate), Expires: 05/02/2025 [facility] Comment on above: Expected: 05/02/2024 (Approximate), Expi res: 05/02/2025 Start: 05-02-2024 End: 05-02-2025 Comprehensive metabolic 2000 panel - Serum or Plasma Comprehensive metabolic panel Lab Routine Bilateral leg edema Expected: 05/02/2024 (Approximate), Expires: 05/02/2025 [facility] Comment on above: Expected: 05/02/2024 (Approximate), Expi res: 05/02/2025 Start: 05-02-2024 End: 05-02-2025 Erythrocyte sedimentation rate Sedimentation rate, automated Lab Routine Bilateral leg edema Expected: 05/02/2024 (Approximate), Expires: 05/02/2025 [facility] Work Phone: Comment on above: Expected: 05/02/2024 (Approximate), Expi res: 05/02/2025 Start: 05-02-2024 End: 05-02-2025 Urate [Mass/volume] in Serum or Plasma Uric acid Lab Routine Bilateral leg edema Expected: 05/02/2024 (Approximate), Expires: 05/02/2025 [facility] Comment on above: Expected: 05/02/2024 (Approximate), Expi res: 05/02/2025 Start: 05-02-2024 End: 05-02-2025 Urinalysis complete panel - Urine Urinalysis with reflex microscopic (clean catch) Lab Routine Bilateral leg edema Expected: 05/02/2024 (Approximate), Expires: 05/02/2025 [facility] Comment on above: Expected: 05/02/2024 (Approximate), Expi res: 05/02/2025 Start: 03-10-2024 Influenza vaccination Influenza Vaccine (#1) [facility] Start: 11-21-2022 [facility] Start: 11-20-2022 Administration of prophylactic treatment [facility] Start: 11-19-2022 Physical therapy procedure [facility] Start: 11-17-2022 Blood culture for bacteria, including anaerobic screen Blood Culture [facility] Start: 11-17-2022 Fungal Culture Result 2 Fungal Culture Result 2 [facility] Start: 11-17-2022 Mycology culture [facility] Start: 11-14-2022 [facility] Start: 11-06-2022 Referral to infectious diseases physician [facility] Start: 11-05-2022 Drainage of Right Pleural Cavity with Drainage Device, Percutaneous Approach Drainage of Right Pleural Cavity with Drainage Device, Percutaneous Approach [facility] Start: 11-05-2022 Insertion of Endotracheal Airway into Trachea, Via Natural or Artificial Opening Insertion of Endotracheal Airway into Trachea, Via Natural or Artificial Opening [facility] Start: 11-05-2022 Insertion of Infusion Device into Superior Vena Cava, Percutaneous Approach Insertion of Infusion Device into Superior Vena Cava, Percutaneous Approach [facility] Start: 11-05-2022 Inspection of Tracheobronchial Tree, Via Natural or Artificial Opening Endoscopic Inspection of Tracheobronchial Tree, Via Natural or Artificial Opening Endoscopic [facility] Start: 11-05-2022 Irrigation of Respiratory Tract using Irrigating Substance, Via Natural or Artificial Opening Endoscopic, Diagnostic Irrigation of Respiratory Tract using Irrigating Substance, Via Natural or Artificial Opening Endoscopic, Diagnostic [facility] Start: 11-05-2022 Respiratory Ventilation, Greater than 96 Consecutive Hours Respiratory Ventilation, Greater than 96 Consecutive Hours [facility] Start: 11-05-2022 Sleep disorder assessment [facility] Start: 11-05-2022 Consultation [facility] Start: 11-05-2022 Hospital admission [facility] Start: 1965 Screening for malignant neoplasm of colon [facility] Fungus identified in Unspecified specimen by Culture [facility] Mycobacterium sp identified in Unspecified specimen by Organism specific culture [facility] Patient Education [facility] Work Phone: Patient referral [facility] Work Phone: XR Chest [address] [facility] Payers Date Payer Category Payer Self-pay [id number] 2020 [facility] er [id number] 1965 Unknown [id number] 2.16.840.1.604131.3.579. 2.593 1967 Unknown [id number] 2.16.840.1.215147.3.579. 2.593 1967 Unknown [id number] 2.16.840.1.430874.3.579. 2.593 1967 Unknown [id number] 2.16.840.1.842555.3.579. 2.593 1967 Unknown [id number] 2.16.840.1.266915.3.579. 2.1259 1967 Unknown [id number] 2.16.840.1.518535.3.579. 2.1259 1967 Unknown [id number] 2.16.840.1.861734.3.579. 2.1259 1967 Unknown [id number] 2.16.840.1.666985.3.579. 2.1259 1967 Unknown [id number] 2.16.840.1.967422.3.579. 2.1259 1957 [employer] [id number] [id number] Unknown [id number] 2.16840.1.314643.3.579. 2.531 Unknown [id number] 2.16.840.1.830076.3.579. 2.531 Unknown [id number] 2.16.840.1.629137.3.579. 2.531 Unknown [id number] 2.16.840.1.855764.3.579. 2.531 Social History Date Type Detail Facility Start: 08-29-2023 End: 08-30-2023 Sex Assigned At [facility] Start: 11-07-2022 End: 12-08-2022 Tobacco smoking status NHIS Smoker (finding) [facility] Start: 1965 Sex Assigned At Male [facility] Start: 07-31-2023 Tobacco smoking stat us IDIS Current some day smoker [facility] Start: 07-10-1999 Tobacco smoking stat us IDIS Smokes tobacco daily [facility] Start: 07-10-1999 History of tobacco use Cigarette Smo ker [facility] Start: 02-29-2024 End: 05-02-2024 Alcoholic beverage intake Lifetime non-drinker (finding) [facility] Start: 08-29-2023 End: 08-30-2023 History of Social function [facility] Do you belong to any clubs or organizations such as yarsani groups, unions, fraternal or athletic groups, or school groups? No [facility] Are you now , , , , never or living with a partner? [facility] How often to you hav e a drink containing alcohol? Never [facility] How many standard dr inks containing alcohol do you have on a typical day? Patient does not drink [facility] How hard is it for y ou to pay for the very basics like food, housing, medical care, and heating Somewhat hard [facility] Do you feel stress - tense, restless, nervous, or anxious, or unable to sleep at night because your mind is troubled all the time - these days [OSQ] To some extent [facility] (I/We) worried wheth er (my/our) food would run out before (I/we) got money to buy more. Often true [facility] In the past 12 month s, was there a time when you were not able to pay the mortgage or rent on time? Yes [facility] Start: 08-30-2023 Alcohol Comment caffine: 3cups of coffee 2-3 drinks of soda [facility] Start: 1965 Sex assigned at Not on file [facility] Goals Date Patient Goal Desired Activity /State Functional Status Date Assessment Result Facility 11-21-2022 Functional status 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 Baseline [facility] Work Phone: Mental Status Date Assessment Result Facility 11-21-2022 Cognitive function Cognitive Sta tus Patient is Progressing Toward Baseline [facility] Work Phone: Clinical Notes 07-07-2022 to 05-02-2024 Shaista Corona NP - 05/02/2024 5:59 PM Edwin Corona NP - 05/02/2024 5:58 PM Edwin Corona NP - 05/02/2024 5:58 PM EDTHUMBANDREI ARAGON - 05/02/2024 4:00 PM EDT Note Date & Type Note Facility 05-02-2024 History of Presen t illness Narrative Associated Problem(s): Bilateral leg edema Check labs Start lasix Weight is increased from last visit No acute evidence of DVT as it is bilat Associated Problem(s): Benign prostatic hyperplasia with weak urinary stream Did help with urination, could not ejaculate Stopped meds and then swelling started Associated Problem(s): HTN (hypertension) (CMS/HCC) Stable today on current meds Check labs Pt states his left foot and ankle up his leg started a couple days ago with swelling above his toes now it has reach up his ankle and up his leg causing pain. Pt stated he believes it could be his flomax he had stopped it last Monday and started taking it again today. While looking at his left leg and compare his right leg the right one is starting to swell no pain as right now. Left one has pain all the way up to his left hip. Images from the original note were not included. Lori Anton is a 58 y.o. male presents with chief complaint of No chief complaint on file. HPI: Continue with bilat knee pains Edema Presents with new edema. The current episode started 1-4 weeks ago. The onset of the episode was sudden. These episodes happen throughout the day. The problem presents itself constantly. The edema is present on the both side(s). Risk factors for edema include no known risk factors. Associated agents include calcium channel blockers and NSAID use. Associated symptoms include decreased urine volume and weight change. Pertinent negative symptoms include no abdominal pain, no abdominal swelling, no chest pain, no cough, no fatigue, no fever, no hemoptysis, no nausea, no nocturia, no orthopnea, no palpitations, no PND, no presyncope, no syncope and no vomiting. Pertinent negative history includes no CAD, no CHF, no chronic renal disease, no cirrhosis and no liver disease. Treatments tried include nothing. SUBJECTIVE: MEDICATIONS: Current Outpatient Medications Medication Instructions amLODIPine (NORVASC) 10 mg, Oral, Daily Buprenorphine HCl-Naloxone HCl (Suboxone) 8-2 MG SL film dissolve 1/3 to 1/2 FILM under the tongue once daily if needed *MUST LAST 28 DAYS carvedilol (COREG) 25 mg, Oral, 2 times daily diclofenac (VOLTAREN) 50 mg, Oral, 3 times daily FLUoxetine (PROzac) 20 MG capsule Total of 3 pills daily to =60mgTotal of 3 pills daily to =60mg furosemide (LASIX) 20 mg, Oral, Daily lisinopril 40 mg, Oral, Daily pramipexole (MIRAPEX) 0.5 mg, Oral, Nightly PRN tamsulosin (FLOMAX) 0.4 mg, Oral, Nightly tiZANidine (ZANAFLEX) 8 mg, Oral, Every 12 hours PRN ALLERGIES: Allergies Allergen Reactions Erythromycin Unknown Penicillins Hives REVIEW OF SYMPTOMS: Review of Systems Constitutional: Negative for activity change, appetite change, fatigue, fever and unexpected weight change. HENT: Negative for ear pain, nosebleeds, sneezing, trouble swallowing and voice change. Eyes: Negative for pain, discharge and visual disturbance. Respiratory: Negative for apnea, cough, hemoptysis, chest tightness and wheezing. Cardiovascular: Negative for chest pain, palpitations, leg swelling, syncope and PND. Gastrointestinal: Negative for abdominal distention, abdominal pain, blood in stool, constipation, diarrhea, nausea and vomiting. Genitourinary: Positive for decreased urine volume. Negative for difficulty urinating, dysuria, hematuria and nocturia. Musculoskeletal: Positive for arthralgias and joint swelling. Skin: Negative for color change. Neurological: Negative for dizziness, tremors and seizures. Psychiatric/Behavioral: Negative for agitation, decreased concentration, hallucinations, self-injury and suicidal ideas. The patient is nervous/anxious. Hematological: Negative for adenopathy. Does not bruise/bleed easily. Endocrine: Negative for cold intolerance, heat intolerance, polydipsia and polyuria. Allergic/Immunologic: Negative for environmental allergies and food allergies. PAST MEDICAL HISTORY Past Medical History: Diagnosis Date Anxiety 08/30/2023 Arthralgia Bilateral chronic knee pain 08/30/2023 Bilateral lower extremity pain 08/30/2023 Cervical pain (neck) 08/30/2023 Chest pain Chronic pain 08/30/2023 Community acquired pneumonia 08/30/2023 DDD (degenerative disc disease), lumbar 08/30/2023 Family history of coronary arteriosclerosis 08/30/2023 Fatigue 08/30/2023 HTN (hypertension) (CMS/HCC) Left shoulder pain Muscle spasms of both lower extremities 08/30/2023 Opioid abuse (CMS/HCC) 08/30/2023 Shingles Tension pneumothorax 08/30/2023 Tinnitus, bilateral 08/30/2023 Tobacco user 08/30/2023 Past Surgical History: Procedure Laterality Date OTHER SURGICAL HISTORY Fatty Tumor family history includes Heart disease in his mother; Hypertension in his mother; bypass surgeries in his mother. OBJECTIVE: Visit Vitals BP 140/88 (BP Location: Left arm, Patient Position: Sitting, BP Cuff Size: Adult long) Pulse 76 Temp 98.8 F (Temporal) Resp 18 Ht 6' 3 Wt 216 lb 6.4 oz SpO2 98% BMI 27.05 kg/m Smoking Status Every Day BSA 2.28 m Physical Exam Vitals and nursing note reviewed. Constitutional: Appearance: Normal appearance. HENT: Head: Normocephalic. Right Ear: External ear normal. Left Ear: External ear normal. Nose: Nose normal. Mouth/Throat: Mouth: Mucous membranes are moist. Pharynx: Oropharynx is clear. Eyes: Extraocular Movements: Extraocular movements intact. Conjunctiva/sclera: Conjunctivae normal. Cardiovascular: Rate and Rhythm: Normal rate and regular rhythm. Pulses: Normal pulses. Heart sounds: Normal heart sounds. Pulmonary: Effort: Pulmonary effort is normal. No respiratory distress. Breath sounds: Normal breath sounds. No wheezing or rales. Abdominal: General: Bowel sounds are normal. There is no distension. Palpations: Abdomen is soft. There is no mass. Tenderness: There is no abdominal tenderness. Hernia: No hernia is present. Musculoskeletal: Cervical back: Neck supple. Right lower leg: Edema present. Left lower leg: Edema present. Comments: Mod swelling to left knee, > right knee No erythema or warmth about the knee Generalized edema bilat legs, +pedal edema, strong +DP/PT pulse, cap refill less than 3 seconds Calf soft, no open wounds Lymphadenopathy: Cervical: No cervical adenopathy. Skin: General: Skin is warm and dry. Capillary Refill: Capillary refill takes 2 to 3 seconds. Neurological: General: No focal deficit present. Mental Status: He is alert. Psychiatric: Mood and Affect: Mood normal. Behavior: Behavior normal. Thought Content: Thought content normal. Judgment: Judgment normal. ASSESSMENT AND PLAN: No follow-ups on file. Problem List Items Addressed This Visit HTN (hypertension) (CMS/HCC) Stable today on current meds Check labs Tobacco user Benign prostatic hyperplasia with weak urinary stream Did help with urination, could not ejaculate Stopped meds and then swelling started Bilateral leg edema - Primary Check labs Start lasix Weight is increased from last visit No acute evidence of DVT as it is bilat Relevant Medications furosemide (Lasix) 20 MG tablet Other Relevant Orders Sedimentation rate, automated CBC and differential Comprehensive metabolic panel Urinalysis with reflex microscopic (clean catch) Urine culture (clean catch) Uric acid documented in this encounter [facility] 12-28-2022 Evaluation note Encounter Date Diagnosis Assessment Notes Dec, Pneumonia of right lower lobe due to infectious organism (ICD-10 - J18.9) Dec, History of pneumothorax (ICD-10 - Z87.09) Dec, Tobacco use disorder (ICD-10 - F17.200) [facility] Other 05-15-2023 Progress note Author Ismael Huitron [facility] November 21, 2022 11:17am Note Date/Time November 21, 2022 11:17 am [facility] ENTER [address] [place] [address] Pulmonology Progress Note Signed Patient: Lori Anton MR#: [id number] : 1965 Acct:[id number] Age/Sex: 57 / M Adm Date: 3 Loc: Room: [address] [place] [address] Type: ADM IN Attending Dr: Rubi Ramos [...] 23:59 07:59 15:59 Intake Total 450 / 1999 Balance 450 1999 Weight 97.1 kg Labs 11/21/22 04:15 11/21/22 [...] <Electronically signed by Ismael Huitron MD> 11/21/[address] [facility] Work Phone: 1(697) 590-259205-15-2023 Progress note Author Sanjay Holt [facility] November 21, 2022 9:14am Note Date/Time November 21, 2022 9:15a m [facility] ENTER [address] [place] [address] Infect. Disease Progress Note Signed Patient: Lori Anton MR#: [id number] : 1965 Acct:[id number] Age/Sex: 57 / M Adm Date: 3 Loc: Room: [address] [place] [address] Type: ADM IN Attending Dr: Rubi Ramos [...] Endotrachael Gram Stain - Final 11/16/22 10:25 [place] Urine Culture - Final No Growth [...] 2 Mg Tab.Subl) 2 mg SUBLINGUAL BID [facility] Stop: 05/18/23 09:26 Last Admin: 11/20/22 22:02 Dose: 2 mg Docusate Sodium (Docusate 100 Mg Capsule) 100 mg PO BID PRN PRN Reason: Constipation Stop: 11/18/23 10:23 Enoxaparin Sodium (Enoxaparin 40 Mg/0.4 Ml Syringe) 40 mg SUBCUT DAILY@1000 [facility] Stop: 11/06/23 09:59 Last Admin: 11/20/22 09:03 Dose: 40 mg Fluoxetine HCl (Fluoxetine 20 Mg Capsule) 40 mg PO HS [facility] Stop: 11/20/23 21:59 Last Admin: 11/20/22 22:02 Dose: 40 mg Fluoxetine HCl (Fluoxetine 20 Mg Capsule) 20 mg PO DAILY@0600 [facility] Stop: 05/13/24 05:59 Last Admin: 11/21/22 05:46 Dose: 20 mg Heparin Sodium (Porcine) (Heparin-Lock 500 Unit/5 Ml Syringe) 0 unit IV-PUSH QSHIFT [facility] Stop: 11/14/23 21:59 Last Admin: 11/21/22 05:46 Dose: 500 unit Linezolid (Zyvox) 600 mg in 300 mls @ 300 mls/hr IV Q12H [facility] Last Admin: 11/20/22 22:02 Dose: 300 mls/hr Meropenem (Merrem) 1 gm in 100 mls @ 33.333 mls/hr IV Q8H [facility] Last Admin: 11/21/22 03:48 Dose: 33.3 mls/hr Lidocaine HCl (Lidocaine 1% Pf 5 Ml Inj.Zara) 10 ml INFILTRATN ONCE PRN PRN Reason: Pain Metoprolol Tartrate (Metoprolol Tartrate 12.5 Mg Tablet) 12.5 mg PO BID [facility] Stop: 11/18/23 20:59 Last Admin: 11/20/22 [...] signed by MD Sanjay Holt> 11/21/2214 [facility] Work Phone: [phone] 808-610905-14-2023 Progress note Author Shant Villegas [facility] November 20, 2022 3:35pm Note Date/Time November 20, 2022 3:35p m [facility] ENTER [address] [place] [address] Hospitalist Progress Note Signed Patient: Lori Anton MR#: [id number] : 1965 Acct:[id number] Age/Sex: 57 / M Adm Date: 3 Loc: 4 Room: [address] [place] [address] Type: ADM IN Attending Dr: Shant Villegas [...] cough, and right-sided chest pain to the [facility] ED and Transferred for the evaluation [...] 14:59 11/20/22 14:59 11/20/22 07:40 FiO2 40 05/12/23 09:00 Const Orientation: alert, awake and oriented [...] Syringe IV-PUSH 11/14/23 21:59 10 unit QSHIFT [facility] Administration Linezolid 600 mg in 300 mls @ 300 mls/hr 11/17/22 11:00 11/20/22 10:15 Zyvox IV 300 mls/hr Q12H [facility] Administration Meropenem 1 gm in 100 mls @ 33.333 mls/hr 11/17/22 18:00 11/20/22 09:03 Merrem IV 33.33 mls/hr Q8H [facility] Administration Lidocaine HCl 10 ml 11/09/22 13:55 [...] . Documented By: Shant Villegas MD 11/20/22 3495 Signed By: <Electronically signed by Shant Villegas MD> 11/20/[address] [facility] Work Phone: 1([phone]) 196-428205-14-2023 Progress note Author Ismael Huitron [facility] November 20, 2022 1:40pm Note Date/Time November 20, 2022 1:40p m [facility] ENTER [address] [place] [address] Pulmonology Progress Note Signed Patient: Lori Anton MR#: [id number] : 1965 Acct:[id number] Age/Sex: 57 / M Adm Date: 3 Loc: Room: [address] [place] [address] Type: ADM IN Attending Dr: Shant Villegas [...] by Ismael Huitron MD> 11/20/[address] [facility] Work Phone: [phone] 122-579605-14-2023 Progress note Author Sanjay Holt [facility] November 20, 2022 9:05am Note Date/Time November 20, 2022 9:05a m [facility] ENTER [address] [place] [address] Infect. Disease Progress Note Signed Patient: Lori Anton MR#: [id number] : 1965 Acct:[id number] Age/Sex: 57 / M Adm Date: 3 Loc: Room: [address] [place] [address] Type: ADM IN Attending Dr: Shant Villegas [...] Endotrachael Gram Stain - Final 11/16/22 10:25 [place] Urine Culture - Final No Growth [...] 2 Mg Tab.Subl) 2 mg SUBLINGUAL BID [facility] Stop: 05/18/23 09:26 Last Admin: 11/20/22 08:23 Dose: 2 mg Docusate Sodium (Docusate 100 Mg Capsule) 100 mg PO BID PRN PRN Reason: Constipation Stop: 11/18/23 10:23 Enoxaparin Sodium (Enoxaparin 40 Mg/0.4 Ml Syringe) 40 mg SUBCUT DAILY@1000 [facility] Stop: 11/06/23 09:59 Last Admin: 11/19/22 09:06 Dose: 40 mg Fluoxetine HCl (Fluoxetine 20 Mg Capsule) 40 mg PO HS [facility] Stop: 11/20/23 21:59 Fluoxetine HCl (Fluoxetine 20 Mg Capsule) 20 mg PO DAILY@0600 [facility] Stop: 11/20/23 05:59 Last Admin: 11/20/22 06:04 Dose: 20 mg Heparin Sodium (Porcine) (Heparin-Lock 500 Unit/5 Ml Syringe) 0 unit IV-PUSH QSHIFT [facility] Stop: 11/14/23 21:59 Last Admin: 11/20/22 06:04 Dose: 2,000 unit Linezolid (Zyvox) 600 mg in 300 mls @ 300 mls/hr IV Q12H [facility] Last Admin: 11/20/22 00:33 Dose: 300 mls/hr Meropenem (Merrem) 1 gm in 100 mls @ 33.333 mls/hr IV Q8H [facility] Last Admin: 11/20/22 03:00 Dose: 33.33 mls/hr Lidocaine HCl (Lidocaine 1% Pf 5 Ml Inj.Zara) 10 ml INFILTRATN ONCE PRN PRN Reason: Pain Melatonin (Melatonin 5 Mg Tablet) 5 mg PO QHS [facility] Stop: 11/19/23 21:59 Last Admin: 11/19/22 21:12 Dose: 5 mg Metoprolol Tartrate (Metoprolol Tartrate 12.5 Mg Tablet) 12.5 mg PO BID [facility] Stop: 11/18/23 20:59 Last Admin: 11/20/22 [...] QSHIFT [facility] Stop: 11/05/23 05:59 Last Admin: 11/20/22 06:04 [...] <Electronically signed by MD Sanjay Holt> 11/20/22904 [facility] Work Phone: [phone]) 459-957005-13-2023 Progress note Author Shant Villegas [facility] November 19, 2022 1:31pm Note Date/Time November 19, 2022 1:31p m [facility] ENTER [address] [place] [address] Hospitalist Progress Note Signed Patient: Lori Anton MR#: [id number] : 1965 Acct:[id number] Age/Sex: 57 / M Adm Date: 3 Loc: Room: [address] [place] [address] Type: ADM IN Attending Dr: Shant Villegas [...] cough, and right-sided chest pain to the [facility] ED and Transferred for the evaluation [...] will be transferred to stepdown unit. Discontinue Earl catheter. Exam Physical Exam Vital Signs: Temp [...] Endotrachael Gram Stain - Final 11/16/22 10:25 [place] Urine Culture - Final No Growth [...] signed by Shant Villegas MD> 11/19/[address] [facility] Work Phone: [phone] 700-799805-13-2023 Progress note Author Ismael Huitron [facility] November 19, 2022 12:32pm Note Date/Time November 19, 2022 12:32 pm [facility] ENTER [address] [place] [address] Pulmonology Progress Note Signed Patient: Lori Anton MR#: [id number] : 1965 Acct:[id number] Age/Sex: 57 / M Adm Date: 3 Loc: Room: [address] [place] [address] Type: ADM IN Attending Dr: Shant Villegas [...] Final 11/16/22 10:25 Urine Culture - Final [place] No Growth 2 Days Assessment/Plan Assessment/Plan [...] by Ismael Huitron MD> 11/19/[address] [facility] Work Phone: [phone] Progress note Author Sanjay Holt [facility] November 19, 2022 9:45am Note Date/Time November 19, 2022 9:45a m [facility] ENTER [address] [place] [address] Infect. Disease Progress Note Signed Patient: Lori Anton MR#: [id number] : 1965 Acct:[id number] Age/Sex: 57 / M Adm Date: 3 Loc: Room: [address] [place] [address] Type: ADM IN Attending Dr: Shant Villegas [...] inspection Objective Labs CBC/BMP: CBC, BMP 11/18/22 11/19/2223 05:35 05:10 05:10 Corrected WBC 13.7 H [...] Preliminary No Growth 1 Day 11/16/22 10:25 [place] Urine Culture - Final No Growth [...] 2 Mg Tab.Subl) 2 mg SUBLINGUAL BID [facility] Stop: 05/18/23 09:26 Last Admin: 11/19/22 09:33 Dose: 2 mg Docusate Sodium (Docusate 100 Mg Capsule) 100 mg PO BID PRN PRN Reason: Constipation Stop: 11/18/23 10:23 Enoxaparin Sodium (Enoxaparin 40 Mg/0.4 Ml Syringe) 40 mg SUBCUT DAILY@1000 [facility] Stop: 11/06/23 09:59 Last Admin: 11/19/22 09:06 Dose: 40 mg Fluoxetine HCl (Fluoxetine Soln 20 Mg/5 Ml) 40 mg PO HS [facility] Stop: 11/07/23 21:59 Last Admin: 11/16/22 21:14 Dose: 40 mg Fluoxetine HCl (Fluoxetine Soln 20 Mg/5 Ml) 20 mg PO DAILY@0600 [facility] Stop: 11/08/23 05:59 Last Admin: 11/17/22 05:13 Dose: 20 mg Heparin Sodium (Porcine) (Heparin-Lock 500 Unit/5 Ml Syringe) 0 unit IV-PUSH QSHIFT [facility] Stop: 11/14/23 21:59 Last Admin: 11/19/22 06:42 Dose: 500 unit Hydromorphone HCl (Hydromorphone 1 Mg/Ml Syringe) 1 mg IV-PUSH Q4H PRN PRN Reason: Pain Linezolid (Zyvox) 600 mg in 300 mls @ 300 mls/hr IV Q12H [facility] Last Admin: 11/18/22 22:59 Dose: 300 mls/hr Meropenem (Merrem) 1 gm in 100 mls @ 33.333 mls/hr IV Q8H [facility] Last Admin: 11/19/22 09:07 Dose: 33.33 [...] QSHIFT [facility] Stop: 11/05/23 05:59 Last Admin: 11/19/22 06:43 Dose: 10 ml Sodium Chloride (Sodium Chloride 0.9 % 10 Ml Syringe) 10 ml IV-PUSH PRN PRN PRN Reason: Flush Stop: 11/07/23 08:37 Last Admin: 11/15/22 08:11 Dose: 10 ml Sodium Chloride (Sodium Chloride 0.9 % 10 Ml Vial.Pf) 10 ml INJECTION DAILY [facility] Stop: 11/08/23 08:59 Last Admin: 11/19/22 [...] meropenem. Only new culture result from the [facility] positive was corynebacterium. Patient clinically is better as he sitting up in a chair talking and denies any acute complaints. Did not cough follows in the room. Plan is to get the chest tube out soon. Unless new culture results become available plan to finish 7 days of linezolid and meropenem. Documented By: Sanjay Holt MD 11/19/22 0940 Signed By: <Electronically signed by MD Sanjay Holt> 11/19/[address] [facility] Work Phone: [phone] 375-499305-12-2023 Progress note Author Shant Villegas [facility] November 18, 2022 12:45pm Note Date/Time November 18, 2022 12:[address] [facility] ENTER [address] [place] [address] Hospitalist Progress Note Signed Patient: Lori Anton MR#: [id number] : 1965 Acct:[id number] Age/Sex: 57 / M Adm Date: 3 Loc: Room: [address] [place] [address] Type: ADM IN Attending Dr: Shant Villegas [...] cough, and right-sided chest pain to the [facility] ED and Transferred for the evaluation [...] Preliminary No Growth 1 Day 11/16/22 10:25 [place] Urine Culture - Final No Growth [...] <Electronically signed by Shant Villegas MD> 11/18/22 1243 [facility] Work Phone: [phone]) [phone] Progress note Author Ismael Huitron [facility] November 18, 2022 12:09pm Note Date/Time November 18, 2022 11:33 [address] [facility] ENTER [address] [place] [address] Pulmonology Progress Note Signed Patient: Lori Anton MR#: [id number] : 1965 Acct:[id number] Age/Sex: 57 / M Adm Date: 3 Loc: Room: [address] [place] [address] Type: ADM IN Attending Dr: Shant Villegas [...] Day 11/16/22 10:25 Urine Culture - Final [place] No Growth 2 Days Assessment/Plan Assessment/Plan [...] by Ismael Huitron MD> 11/18/[address] [facility] Work Phone: 1([phone] 575-410605-12-2023 Progress note Author Sanjay Holt [facility] November 18, 2022 10:49am Note Date/Time November 18, 2022 10:49 [address] [facility] ENTER [address] [place] [address] Infect. Disease Progress Note Signed Patient: Lori Anton MR#: [id number] : 1965 Acct:[id number] Age/Sex: 57 / M Adm Date: 3 Loc: Room: [address] [place] [address] Type: ADM IN Attending Dr: Shant Villegas [...] ml @ 33.333 mls/hr IV Q8H [facility] Rx#:[id number] fentaNYL 1,000 mcg-*D5W* 1,000 100 / 200 200 / 200 mcg In 100 ml @ 25 MCG/HR 2.5 mls/hr IV .Q24H [facility] Rx#: [id number] propofoL 1,000 mg In 100 ml @ 200 / 400 200 / 200 20 MCG/KG/MIN 12.6 mls/hr IV . Q7H57M [facility] Rx#:[id number] Tube Feeding 982 / 982 Output: Urine Amount (Catheter) 1300 / 3425 675 / 675 Urethral (Earl) 1300 / 3425 675 / 675 Chest [...] Preliminary No Growth 1 Day 11/16/22 10:25 [place] Urine Culture - Final No Growth [...] Mg/0.4 Ml Syringe) 40 mg SUBCUT DAILY@1000 [facility] Stop: 11/06/23 09:59 Last Admin: 11/18/22 09:57 Dose: 40 mg Fluoxetine HCl (Fluoxetine Soln 20 Mg/5 Ml) 40 mg PO HS [facility] Stop: 11/07/23 21:59 Last Admin: 11/16/22 21:14 Dose: 40 mg Fluoxetine HCl (Fluoxetine Soln 20 Mg/5 Ml) 20 mg PO DAILY@0600 [facility] Stop: 11/08/23 05:59 Last Admin: 11/17/22 05:13 Dose: 20 mg Heparin Sodium (Porcine) (Heparin-Lock 500 Unit/5 Ml Syringe) 0 unit IV-PUSH QSHIFT [facility] Stop: 11/14/23 21:59 Last Admin: 11/18/22 06:37 Dose: 1,000 unit Linezolid (Zyvox) 600 mg in 300 mls @ 300 mls/hr IV Q12H [facility] Last Admin: 11/17/22 22:16 Dose: 300 mls/hr Meropenem (Merrem) 1 gm in 100 mls @ 33.333 mls/hr IV Q8H [facility] Last Admin: 11/18/22 01:54 Dose: 33.33 [...] 12.5 Mg Tablet) 12.5 mg OG-TUBE BID [facility] Stop: 11/17/23 11:29 Last Admin: 11/18/22 09:57 Dose: 12.5 mg Nicotine (Nicotine Patch 21 Mg/24hr 1 Each Patch.Td24) 1 each TRANSDERML DAILY PRN PRN Reason: Nicotine Cravings Stop: 12/16/22 09:01 Pantoprazole Sodium (Pantoprazole 40 Mg Vial) 40 mg IV-PUSH DAILY [facility] Stop: 11/08/23 08:59 Last Admin: 11/18/22 [...] QSHIFT SHANE Stop: 11/05/23 05:59 Last Admin: 11/18/22 06:38 Dose: 30 ml Sodium Chloride (Sodium Chloride 0.9 % 10 Ml Syringe) 10 ml IV-PUSH PRN PRN PRN Reason: Flush Stop: 11/07/23 08:37 Last Admin: 11/15/22 08:11 Dose: 10 ml Sodium Chloride (Sodium Chloride 0.9 % 10 Ml Vial.Pf) 10 ml INJECTION DAILY [facility] Stop: 11/08/23 08:59 Last Admin: 11/18/22 [...] otherwise Documented By: Sanjay Holt MD 11/18/22 1045 Signed By: <Electronically signed by MD Sanjay Holt> 11/18/[address] [facility] Work Phone: 1(908) 999-124105-12-2023 Progress note Author Sanjay Holt [facility] November 18, 2022 10:45am Note Date/Time November 17, 2022 9:25a m [facility] EN[facility] [address] [place] [address] Infect. Disease Progress Note Signed Patient: Lori Anton MR#: [id number] : 1965 Acct:[id number] Age/Sex: 57 / M Adm Date: 3 Loc: Room: [address] [place] [address] Type: ADM IN Attending Dr: Shant Villegas [...] Puff/18 Gm Inhaler) 6 puff VENT Q6HR [facility] Stop: 11/07/23 11:59 Last Admin: 11/17/22 05:09 Dose: 6 puff Chlorhexidine Gluconate (Chlorhexidine Gluconate 0.12% 15 Ml Udc) 15 ml MUCOUS MEM BID [facility] Stop: 11/07/23 09:09 Last Admin: 11/17/22 08:39 Dose: 15 ml Docusate Sodium (Docusate Liquid 100 Mg/10 Ml Udc) 100 mg OG-TUBE BID [facility] Stop: 11/07/23 08:59 Last Admin: 11/17/22 08:39 Dose: 100 mg Enoxaparin Sodium (Enoxaparin 40 Mg/0.4 Ml Syringe) 40 mg SUBCUT DAILY@1000 [facility] Stop: 11/06/23 09:59 Last Admin: 11/16/22 09:26 Dose: 40 mg Fluoxetine HCl (Fluoxetine Soln 20 Mg/5 Ml) 40 mg PO HS [facility] Stop: 11/07/23 21:59 Last Admin: 11/16/22 21:14 Dose: 40 mg Fluoxetine HCl (Fluoxetine Soln 20 Mg/5 Ml) 20 mg PO DAILY@0600 [facility] Stop: 11/08/23 05:59 Last Admin: 11/17/22 05:13 Dose: 20 mg Heparin Sodium (Porcine) (Heparin-Lock 500 Unit/5 Ml Syringe) 0 unit IV-PUSH QSHIFT [facility] Stop: 11/14/23 21:59 Last Admin: 11/17/22 05:12 Dose: 1,500 unit Fentanyl (Fentanyl 1,000 Mcg/100 Ml D5w) 1,000 mcg in 100 mls @ 2.5 mls/hr IV .Q24H [facility]; Protocol Last Titration: 11/17/22 07:52 Dose: 125 mcg/hr, 12.5 mls/hr Propofol (Diprivan) 1,000 mg in 100 mls @ 12.6 mls/hr IV .Q7H57M [facility]; Protocol Stop: 11/07/23 07:59 Last Titration: 11/17/22 07:52 Dose: 30 mcg/kg/min, 18.9 mls/hr Midazolam HCl (Versed) 100 mg in 100 mls @ 1 mls/hr IV .Q24H [facility]; Protocol Stop: 05/08/23 10:59 Last Admin: [...] 40 Mg Vial) 40 mg IV-PUSH DAILY [facility] Stop: 11/08/23 08:59 Last Admin: 11/17/22 08:39 Dose: 40 mg Polyethylene Glycol (Polyethylene Glycol 3350 17 Gm Powd.Pack) 17 gm OG-TUBE DAILY PRN PRN Reason: Constipation Stop: 11/14/23 08:52 Last Admin: 11/16/22 21:13 Dose: 17 gm Sennosides (Sennosides Syrup 8.8 Mg/5 Ml Udc) 8.8 mg OG-TUBE BID [facility] Stop: 11/16/23 08:59 Last Admin: 11/17/22 08:39 Dose: 8.8 mg Sodium Chloride (Sodium Chloride 0.9 % 10 Ml Syringe) 0 ml IV-PUSH QSHIFT [facility] Stop: 11/05/23 05:59 Last Admin: 11/17/22 [...] meropenem. Documented By: Sanjay Holt MD 11/17/22 8314 Signed By: <Electronically signed by MD Sanjay Holt> 11/18/[address] [facility] Work Phone: [phone] 326-111005-11-2023 Progress note Author Shant Villegas [facility] November 17, 2022 3:17pm Note Date/Time November 17, 2022 3:17p m [facility] ENTER [address] [place], [place] [id number] Hospitalist Progress Note Signed Patient: Lori Anton MR#: [id number] : 1965 Acct:[id number] Age/Sex: 57 / M Adm Date: 3 Loc: Room: [address] [place] [address] Type: ADM IN Attending Dr: Shant Villegas [...] cough, and right-sided chest pain to the [facility] ED and Transferred for the evaluation [...] Endotrachael Gram Stain - Final 11/16/22 10:25 [place] Urine Culture - Preliminary No Growth [...] Dose Route Start Last Admin Trade Name Vicki PRN Reason Stop Dose Admin Acetaminophen 1,000 [...] . Documented By: Shant Villegas MD 11/17/22 150 Signed By: <Electronically signed by Shant Villegas MD> 11/17/22 1517 [facility] Work Phone: 1(854) 668-483205-11-2023 Progress note Author Reginald Arroyo [facility] November 17, 2022 10:25am Note Date/Time November 17, 2022 8:48a m [facility] EN[facility] [address] [place] [address] Pulmonology Progress Note Signed Patient: Lori Anton MR#: [id number] : 1965 Acct:[id number] Age/Sex: 57 / M Adm Date: 3 Loc: Room: [address] [place] [address] Type: ADM IN Attending Dr: Shant Villegas [...] 5.9 L ABG Base Excess 9.9 H /08/05 Assessment/Plan Assessment/Plan (1) Acute hypoxemic respiratory failure: [...] colon. Documented By: Reginald Arroyo MD 3 0540 Signed By: <Electronically signed by MD Reginald Arroyo> 11/17/22 9087 [facility] Work Phone: [phone] Progress note Author Shant Villegas [facility] November 16, 2022 3:46pm Note Date/Time November 16, 2022 3:35p m [facility] EN[facility] [address] [place] [address] Hospitalist Progress Note Signed Patient: Lori Anton MR#: [id number] : 1965 Acct:[id number] Age/Sex: 57 / M Adm Date: 3 Loc: Room: [address] [place] [address] Type: ADM IN Attending Dr: Shant Villegas [...] cough, and right-sided chest pain to the [facility] ED and Transferred for the evaluation and treatment of Bacterial pneumonia Bacterial pneumonia/Parainfluenza Infection Since patient remains intubated and had a spike of fever this morning. CTA chest obtained earlier today showed consolidative changes involving lower lobes and cavitary component in the right middle lobe. Patient being followed by pulmonary service and infectious disease and will defer further management to [facility] pulmonary service. Currently is off antibiotics. He [...] <Electronically signed by Shant Villegas MD> 11/16/[address] [facility] Work Phone: [phone] Progress note Author Reginald Arroyo [facility] November 16, 2022 11:03am Note Date/Time November 16, 2022 8:20a m [facility] EN[facility] [address] [place] [address] Pulmonology Progress Note Signed Patient: Lori Anton MR#: [id number] : 1965 Acct:[id number] Age/Sex: 57 / M Adm Date: 3 Loc: Room: 6N2534-4 Type: ADM IN Attending Dr: Shant Villegas [...] care. Documented By: Reginald Arroyo MD 3 [id number] Signed By: <Electronically signed by MD Reginald Arroyo> 11/16/[address] [facility] Work Phone: [phone] 208-131705-10-2023 Progress note Author Sanjay Holt [facility] November 16, 2022 9:24am Note Date/Time November 16, 2022 9:05a m [facility] C ENTER [address] [place], [place] [id number] Infect. Disease Progress Note Signed Patient: Lori Anton MR#: [id number] : 1965 Acct:[id number] Age/Sex: 57 / M Adm Date: 3 Loc: Room: [address] [place] [address] Type: ADM IN Attending Dr: Shant Villegas [...] Puff/18 Gm Inhaler) 6 puff VENT Q6HR [facility] Stop: 11/07/23 11:59 Last Admin: 11/16/22 05:08 Dose: 6 puff Amlodipine Besylate (Amlodipine 10 Mg Tablet) 10 mg PO DAILY@0600 [facility] Stop: 11/05/23 08:59 Last Admin: 11/08/22 07:00 Dose: 10 mg Buprenorphine HCl (Buprenorphine Hcl 2 Mg Tab.Subl) 2 mg SUBLINGUAL BID@0600,1800 [facility] Stop: 05/06/23 05:59 Last Admin: 11/07/22 06:38 Dose: 2 mg Carvedilol (Carvedilol 12.5 Mg Tablet) 12.5 mg PO BID@0600,1800 [facility] Stop: 11/06/23 20:59 Last Admin: 11/08/22 07:00 Dose: 12.5 mg Chlorhexidine Gluconate (Chlorhexidine Gluconate 0.12% 15 Ml Udc) 15 ml MUCOUS MEM BID [facility] Stop: 11/07/23 09:09 Last Admin: 11/16/22 08:46 Dose: 15 ml Docusate Sodium (Docusate Liquid 100 Mg/10 Ml Udc) 100 mg OG-TUBE BID [facility] Stop: 11/07/23 08:59 Last Admin: 11/16/22 08:46 Dose: 100 mg Enoxaparin Sodium (Enoxaparin 40 Mg/0.4 Ml Syringe) 40 mg SUBCUT DAILY@1000 [facility] Stop: 11/06/23 09:59 Last Admin: 11/15/22 10:16 Dose: 40 mg Fluoxetine HCl (Fluoxetine Soln 20 Mg/5 Ml) 40 mg PO HS [facility] Stop: 11/07/23 21:59 Last Admin: 11/15/22 22:31 Dose: 40 mg Fluoxetine HCl (Fluoxetine Soln 20 Mg/5 Ml) 20 mg PO DAILY@0600 [facility] Stop: 11/08/23 05:59 Last Admin: 11/16/22 05:39 Dose: 20 mg Heparin Sodium (Porcine) (Heparin-Lock 500 Unit/5 Ml Syringe) 0 unit IV-PUSH QSHIFT [facility] Stop: 11/14/23 21:59 Last Admin: 11/16/22 05:47 Dose: 1,000 unit Fentanyl (Fentanyl 1,000 Mcg/100 Ml D5w) 1,000 mcg in 100 mls @ 2.5 mls/hr IV .Q24H [facility]; Protocol Last Admin: 11/15/22 19:06 Dose: 200 mcg/hr, 20 mls/hr Propofol (Diprivan) 1,000 mg in 100 mls @ 12.6 mls/hr IV .Q7H57M [facility]; Protocol Stop: 11/07/23 07:59 Last Admin: 11/16/22 08:47 Dose: 20 mcg/kg/min, 12.6 mls/hr Midazolam HCl (Versed) 100 mg in 100 mls @ 1 mls/hr IV .Q24H [facility]; Protocol Stop: 05/08/23 10:59 Last Titration: 11/16/22 08:48 Dose: 5 mg/hr, 5 mls/hr Sodium Chloride (0.45% Sodium Chloride 1,000 Ml) 1,000 mls @ 150 mls/hr IV .Q6H40M [facility] Stop: 11/16/22 15:39 Lidocaine HCl (Lidocaine 1% Pf 5 Ml Inj.Zara) 10 ml INFILTRATN ONCE PRN PRN Reason: Pain Lisinopril (Lisinopril 20 Mg Tablet) 20 mg PO DAILY@0600 [facility] Stop: 11/06/23 08:59 Last Admin: 11/08/22 [...] 40 Mg Vial) 40 mg IV-PUSH DAILY [facility] Stop: 11/08/23 08:59 Last Admin: 11/16/22 [...] elevated. On admission respiratory PCR panel at [facility] without targeted pathogen but parainfluenza 3 virus targeted here. Legionella urine antigen negative, Legionella antibodies negative. Urine strep antigen negative. HIV negative. At this time he is off antibiotics and has been for only a day. Documented By: Sanjay Holt MD 11/16/22 0858 Signed By: <Electronically signed by MD Sanjay Holt> 11/16/2224 [facility] Work Phone: [phone] Progress note Author Shant Villegas [facility] November 15, 2022 2:30pm Note Date/Time November 15, 2022 2:30pm [facility] EN[facility] [address] [place] [address] Hospitalist Progress Note Signed Patient: Lori Anton MR#: [id number] : 1965 Acct:[id number] Age/Sex: 57 / M Adm Date: 3 Loc: Room: [address] [place] [address] Type: ADM IN Attending Dr: Shant Villegas [...] cough, and right-sided chest pain to the [facility] ED and Transferred for the evaluation and treatment of Bacterial pneumonia Bacterial pneumonia/Parainfluenza Infection Per chest CTA report done at [facility], there is evidence of 2.6 cm [...] Tablet PO 11/06/23 08:59 20 mg DAILY@0600 [facility] Administration Magnesium Hydroxide 30 ml 11/07/22 [...] Chloride 0.9 % 10 Ml Vial.Pf INJECTION 05/01/24 08:59 10 ml DAILY SHANE Administration Sodium [...] signed by Shant Villegas MD> 11/15/22 1430 [facility] Work Phone: [phone] Progress note Author Reginald Arroyo [facility] November 15, 2022 12:14pm Note Date/Time November 15, 2022 8:22am [facility] EN[facility] [address] [place] [address] Pulmonology Progress Note Signed Patient: Lori Anton MR#: [id number] : 1965 Acct:[id number] Age/Sex: 57 / M Adm Date: 3 Loc: Room: [address] [place] [address] Type: ADM IN Attending Dr: Shant Villegas [...] <Electronically signed by MD Reginald Arroyo> 11/15/22 [facility] Work Phone: [phone] Progress note Author Sanjay Holt [facility] November 15, 2022 9:37am Note Date/Time November 15, 2022 9:37am [facility] EN[facility] [address] [place] [address] Infect. Disease Progress Note Signed Patient: Lori Anton MR#: [id number] : 1965 Acct:[id number] Age/Sex: 57 / M Adm Date: 3 Loc: Room: [address] [place] [address] Type: ADM IN Attending Dr: Shant Villegas [...] Puff/18 Gm Inhaler) 6 puff VENT Q6HR [facility] Stop: 11/07/23 11:59 Last Admin: 11/15/22 05:24 Dose: 6 puff Albuterol/Ipratropium (Ipratropium/Albuterol 0.5-3 Mg 3 Ml Ampul.Neb) 3 ml INHALATION QID.RESP [facility] Stop: 11/05/23 07:59 Last Admin: 11/07/22 09:05 Dose: Not Given Amlodipine Besylate (Amlodipine 10 Mg Tablet) 10 mg PO DAILY@0600 [facility] Stop: 11/05/23 08:59 Last Admin: 11/08/22 07:00 Dose: 10 mg Budesonide (Budesonide 0.5 Mg/2 Ml Ampul.Neb) 0.5 mg INHALATION BID [facility] Stop: 11/05/23 11:39 Last Admin: 11/06/22 20:43 Dose: 0.5 mg Buprenorphine HCl (Buprenorphine Hcl 2 Mg Tab.Subl) 2 mg SUBLINGUAL BID@0600,1800 [facility] Stop: 05/06/23 05:59 Last Admin: 11/07/22 06:38 Dose: 2 mg Carvedilol (Carvedilol 12.5 Mg Tablet) 12.5 mg PO BID@0600,1800 [facility] Stop: 11/06/23 20:59 Last Admin: 11/08/22 07:00 Dose: 12.5 mg Chlorhexidine Gluconate (Chlorhexidine Gluconate 0.12% 15 Ml Udc) 15 ml MUCOUS MEM BID [facility] Stop: 11/07/23 09:09 Last Admin: 11/15/22 08:10 Dose: 15 ml Docusate Sodium (Docusate Liquid 100 Mg/10 Ml Udc) 100 mg OG-TUBE BID [facility] Stop: 11/07/23 08:59 Last Admin: 11/15/22 08:10 Dose: 100 mg Enoxaparin Sodium (Enoxaparin 40 Mg/0.4 Ml Syringe) 40 mg SUBCUT DAILY@1000 [facility] Stop: 11/06/23 09:59 Last Admin: 11/14/22 15:06 Dose: 40 mg Fluoxetine HCl (Fluoxetine Soln 20 Mg/5 Ml) 40 mg PO HS [facility] Stop: 11/07/23 21:59 Last Admin: 11/14/22 21:47 Dose: 40 mg Fluoxetine HCl (Fluoxetine Soln 20 Mg/5 Ml) 20 mg PO DAILY@0600 [facility] Stop: 11/08/23 05:59 Last Admin: 11/15/22 05:47 Dose: 20 mg Guaifenesin (Guaifenesin 600 Mg Tab.Er.12h) 1,200 mg PO BID [facility] Stop: 11/06/23 12:54 Last Admin: 11/06/22 20:51 Dose: 1,200 mg Heparin Sodium (Porcine) (Heparin-Lock 500 Unit/5 Ml Syringe) 0 unit IV-PUSH QSHIFT [facility] Stop: 11/14/23 21:59 Last Admin: 11/15/22 05:46 Dose: 1,000 unit Levofloxacin (Levaquin) 750 mg in 150 mls @ 100 mls/hr IV Q24H [facility] Last Admin: 11/14/22 21:45 Dose: 100 mls/hr Clindamycin Phosphate (Cleocin) 600 mg in 50 mls @ 100 mls/hr IV Q8H [facility] Last Admin: 11/15/22 02:46 Dose: 100 mls/hr Fentanyl (Fentanyl 1,000 Mcg/100 Ml D5w) 1,000 mcg in 100 mls @ 2.5 mls/hr IV .Q24H [facility]; Protocol Last Admin: 11/15/22 07:59 Dose: 200 mcg/hr, 20 mls/hr Propofol (Diprivan) 1,000 mg in 100 mls @ 12.6 mls/hr IV .Q7H57M [facility]; Protocol Stop: 11/07/23 07:59 Last Admin: 11/15/22 06:38 Dose: 35 mcg/kg/min, 22.05 mls/hr Midazolam HCl (Versed) 100 mg in 100 mls @ 1 mls/hr IV .Q24H [facility]; Protocol Stop: 05/08/23 10:59 Last Admin: 11/14/22 21:46 Dose: Not Given Lidocaine HCl (Lidocaine 1% Pf 5 Ml Inj.Zara) 10 ml INFILTRATN ONCE PRN PRN Reason: Pain Lisinopril (Lisinopril 20 Mg Tablet) 20 mg PO DAILY@0600 [facility] Stop: 11/06/23 08:59 Last Admin: 11/08/22 [...] 40 Mg Vial) 40 mg IV-PUSH DAILY [facility] Stop: 11/08/23 08:59 Last Admin: 11/15/22 [...] days. On admission respiratory PCR panel at [facility] without targeted pathogen but parainfluenza 3 virus [...] signed by MD Sanjay Holt> 11/15/2237 [facility] Work Phone: [phone] [facility]23 Progress note Author Shant Villegas [facility] November 14, 2022 12:52pm Note Date/Time November 14, 2022 12:52p m [facility] EN[facility] [address] [place] [address] Hospitalist Progress Note Signed Patient: Lori Anton MR#: [id number] : 1965 Acct:[id number] Age/Sex: 57 / M Adm Date: 3 Loc: Room: [address] [place] [address] Type: ADM IN Attending Dr: Shant Villegas MD Copies to: ~ Date of Service: 11/14/2022 Subjective Subjective Narrative: On examination patient remains intubated and sedated. Currently PEEP of 10 [id number]% FiO2. Plan for bronchoscopy later today by pulmonary service. He is also being followed by ID. Currently on Versed, fentanyl and propofol for sedation. No growth on blood cultures so far. With initial sputum culture growing Candidaonly. Assessment And Plan 57M with PMH of HTN, DJD, Tobacco abuse, Depression who p/w ever, cough, and right-sided chest pain to the [facility] ED and Transferred for the evaluation and treatment of Bacterial pneumonia Bacterial pneumonia/Parainfluenza Infection Per chest CTA report done at [facility], there is evidence of 2.6 cm [...] Insuln.Pen SUBCUT 11/08/23 11:59 Not Given Q6HR [facility] Protocol Lidocaine HCl 10 ml 11/09/22 13:55 Lidocaine 1% Pf 5 Ml Inj.Zara INFILTRATN ONCE PRN Pain Lisinopril 20 mg 11/07/22 06:00 11/08/22 07:00 Lisinopril 20 Mg Tablet PO 11/06/23 08:59 20 mg DAILY@0600 [facility] Administration Magnesium Hydroxide 30 ml 11/07/22 [...] <Electronically signed by Shant Villegas MD> 11/14/22 1259 [facility] Work Phone: [phone] Progress note Author Reginald Arroyo [facility] November 14, 2022 12:46pm Note Date/Time November 14, 2022 8:51am [facility] EN[facility] [address] [place] [address] Pulmonology Progress Note Signed Patient: Lori Anton MR#: [id number] : 1965 Acct:[id number] Age/Sex: 57 / M Adm Date: 3 Loc: Room: [address] [place] [address] Type: ADM IN Attending Dr: Shant Villegas [...] cultures. Documented By: Reginald Arroyo MD 3 [id number] Signed By: <Electronically signed by MD Reginald Arroyo> 11/14/[address] [facility] Work Phone: [phone]) 590-929405-08-2023 Progress note Author Sanjay Holt [facility] November 14, 2022 8:59am Note Date/Time November 14, 2022 8:59am [facility] EN[facility] [address] [place] [address] Infect. Disease Progress Note Signed Patient: Lori Anton MR#: [id number] : 1965 Acct:[id number] Age/Sex: 57 / M Adm Date: 3 Loc: Room: [address] [place] [address] Type: ADM IN Attending Dr: Rubi Ramos [...] current 102 told to me by RN Susanna General: ill appearing and other (sedated on [...] Puff/18 Gm Inhaler) 6 puff VENT Q6HR [facility] Stop: 11/07/23 11:59 Last Admin: 11/14/22 05:19 Dose: 6 puff Albuterol/Ipratropium (Ipratropium/Albuterol 0.5-3 Mg 3 Ml Ampul.Neb) 3 ml INHALATION QID.RESP [facility] Stop: 11/05/23 07:59 Last Admin: 11/07/22 09:05 Dose: Not Given Amlodipine Besylate (Amlodipine 10 Mg Tablet) 10 mg PO DAILY@0600 [facility] Stop: 11/05/23 08:59 Last Admin: 11/08/22 07:00 Dose: 10 mg Budesonide (Budesonide 0.5 Mg/2 Ml Ampul.Neb) 0.5 mg INHALATION BID [facility] Stop: 11/05/23 11:39 Last Admin: 11/06/22 20:43 Dose: 0.5 mg Bumetanide (Bumetanide 1 Mg/4 Ml Vial) 1 mg IV-PUSH BID@0800,1600 [facility] Stop: 11/14/22 16:01 Last Admin: 11/13/22 16:15 Dose: 1 mg Buprenorphine HCl (Buprenorphine Hcl 2 Mg Tab.Subl) 2 mg SUBLINGUAL BID@0600,1800 [facility] Stop: 05/06/23 05:59 Last Admin: 11/07/22 06:38 Dose: 2 mg Carvedilol (Carvedilol 12.5 Mg Tablet) 12.5 mg PO BID@0600,1800 [facility] Stop: 11/06/23 20:59 Last Admin: 11/08/22 07:00 Dose: 12.5 mg Chlorhexidine Gluconate (Chlorhexidine Gluconate 0.12% 15 Ml Udc) 15 ml MUCOUS MEM BID [facility] Stop: 11/07/23 09:09 Last Admin: 11/13/22 22:31 Dose: 15 ml Docusate Sodium (Docusate Liquid 100 Mg/10 Ml Udc) 100 mg OG-TUBE BID [facility] Stop: 11/07/23 08:59 Last Admin: 11/13/22 22:31 Dose: 100 mg Enoxaparin Sodium (Enoxaparin 40 Mg/0.4 Ml Syringe) 40 mg SUBCUT DAILY@1000 [facility] Stop: 11/06/23 09:59 Last Admin: 11/13/22 09:16 Dose: 40 mg Fluoxetine HCl (Fluoxetine Soln 20 Mg/5 Ml) 40 mg PO HS [facility] Stop: 11/07/23 21:59 Last Admin: 11/13/22 22:32 Dose: 40 mg Fluoxetine HCl (Fluoxetine Soln 20 Mg/5 Ml) 20 mg PO DAILY@0600 [facility] Stop: 11/08/23 05:59 Last Admin: 11/14/22 06:31 Dose: 20 mg Guaifenesin (Guaifenesin 600 Mg Tab.Er.12h) 1,200 mg PO BID [facility] Stop: 11/06/23 12:54 Last Admin: 11/06/22 20:51 Dose: 1,200 mg Levofloxacin (Levaquin) 750 mg in 150 mls @ 100 mls/hr IV Q24H [facility] Last Admin: 11/13/22 22:31 Dose: 100 mls/hr Clindamycin Phosphate (Cleocin) 600 mg in 50 mls @ 100 mls/hr IV Q8H [facility] Last Admin: 11/14/22 01:20 Dose: 100 mls/hr Fentanyl (Fentanyl 1,000 Mcg/100 Ml D5w) 1,000 mcg in 100 mls @ 2.5 mls/hr IV .Q24H [facility]; Protocol Last Admin: 11/14/22 04:30 Dose: 200 mcg/hr, 20 mls/hr Propofol (Diprivan) 1,000 mg in 100 mls @ 12.6 mls/hr IV .Q7H57M [facility]; Protocol Stop: 11/07/23 07:59 Last Admin: 11/14/22 06:30 Dose: 50 mcg/kg/min, 31.5 mls/hr Midazolam HCl (Versed) 100 mg in 100 mls @ 1 mls/hr IV .Q24H [facility]; Protocol Stop: 05/08/23 10:59 Last Admin: 11/13/22 22:31 Dose: Not Given Insulin Aspart (Insulin Aspart 300 Units/3 Ml Insuln.Pen) 0 units SUBCUT Q6HR [facility]; Protocol Stop: 11/08/23 11:59 Last Admin: 11/14/22 06:31 Dose: Not Given Lidocaine HCl (Lidocaine 1% Pf 5 Ml Inj.Zara) 10 ml INFILTRATN ONCE PRN PRN Reason: Pain Lisinopril (Lisinopril 20 Mg Tablet) 20 mg PO DAILY@0600 [facility] Stop: 11/06/23 08:59 Last Admin: 11/08/22 [...] 40 Mg Vial) 40 mg IV-PUSH DAILY [facility] Stop: 11/08/23 08:59 Last Admin: 11/13/22 09:16 Dose: 40 mg Potassium Chloride (Potassium Chloride Er 20 Meq Tab.Er.Prt) 40 meq PO DAILY PRN PRN Reason: Hypokalemia Stop: 11/05/23 06:40 Last Admin: 11/05/22 08:43 Dose: 40 meq Sennosides (Sennosides Syrup 8.8 Mg/5 Ml Udc) 8.8 mg PO BID [facility] Stop: 11/07/23 08:59 Last Admin: 11/13/22 22:31 Dose: 8.8 mg Sodium Chloride (Sodium Chloride 0.9 % 10 Ml Syringe) 0 ml IV-PUSH QSHIFT SHANE Stop: 11/05/23 05:59 Last Admin: 11/14/22 06:31 [...] 3days. On admission respiratory PCR panel at [facility] without targeted pathogen but parainfluenza 3 virus [...] signed by MD Sanjay Holt> 11/14/[address] [facility] Work Phone: [phone]) 817-697405-07-2023 Progress note Author Rubi Ramos [facility] November 13, 2022 5:32pm Note Date/Time November 13, 2022 2:04pm [facility] [address] [place] [address] Hospitalist Progress Note Signed Patient: Lori Anton MR#: [id number] : 1965 Acct:[id number] Age/Sex: 57 / M Adm Date: 3 Loc: Room: [address] [place] [address] Type: ADM IN Attending Dr: Rubi Ramos MD Copies to: ~ Date of Service: 11/13/2022 Subjective Subjective Narrative: Assessment And Plan 57M with PMH of HTN, DJD, Tobacco abuse, Depression who p/w ever, cough, and right-sided chest pain to the [facility] ED and Transferred for the evaluation and treatment of Bacterial pneumonia Bacterial pneumonia/Parainfluenza Infection leukocytosis is better , no fever today Per chest CTA report done at [facility], there is evidence of 2.6 cm [...] Dose Route Start Last Admin Trade Name Vicki PRN Reason Stop Dose Admin Acetaminophen 1,000 [...] Mg/4 Ml Vial IV-PUSH 11/14/22 16:01 BID@0800,1600 [facility] Buprenorphine HCl 2 mg 11/07/22 06:00 [...] <Electronically signed by Rubi Ramos MD> 11/13/22 [id number] [place] [facility] Work Phone: [phone] 477-360405-07-2023 Progress note Author Reginald Aroryo [facility] November 13, 2022 10:56am Note Date/Time November 13, 2022 9:03am [facility] [address] [place] [address] Pulmonology Progress Note Signed Patient: Lori Anton MR#: [id number] : 1965 Acct:[id number] Age/Sex: 57 / M Adm Date: 3 Loc: Room: [address] [place] [address] Type: ADM IN Attending Dr: Rubi Ramos [...] <Electronically signed by MD Reginald Arroyo> 11/13/[address] [place] [address] Ctr Work Phone: [phone] Progress note Author Rubi Ramos [facility] November 12, 2022 6:19pm Note Date/Time November 12, 2022 4:48pm [facility] [address] [place] [address] Hospitalist Progress Note Signed Patient: Lori Anton MR#: [id number] : 1965 Acct:[id number] Age/Sex: 57 / M Adm Date: 3 Loc: Room: [address] [place] [address] Type: ADM IN Attending Dr: Rubi Ramos MD Copies to: ~ Date of Service: 11/12/2022 Subjective Subjective Narrative: Assessment And Plan 57M with PMH of HTN, DJD, Tobacco abuse, Depression who p/w ever, cough, and right-sided chest pain to the [facility] ED and Transferred for the evaluation and treatment of Bacterial pneumonia Bacterial pneumonia/Parainfluenza Infection still have leukocytosis (he is on steroids) , no fever today Per chest CTA report done at [facility], there is evidence of 2.6 cm [...] 97 Mechanical Ventilation 65 11/12/22 12:00 11/12/22 15:00 11/12/22 15:00 11/12/22 15:00 11/12/22 15:00 11/12/22 15:00 11/07/22 00:00 FiO2 90 11/12/22 15:00 Narrative: GENERAL: [...] 03:35 Q3H PRN Cough/Wheeze Albuterol 6 puff 05/01/23 12:00 11/12/22 13:09 Albuterol Hfa 200 Puff/18 [...] Insuln.Pen SUBCUT 11/08/23 11:59 Not Given Q6HR [facility] Protocol Lidocaine HCl 10 ml 11/09/22 [...] <Electronically signed by Rubi Ramos MD> 11/12/22 67[address] [facility] Work Phone: [phone]) [phone] Progress note Author Reginald Arroyo [facility] November 12, 2022 2:57pm Note Date/Time November 12, 2022 8:07am [facility] [address] [place] [address] Pulmonology Progress Note Signed Patient: Lori Anton MR#: [id number] : 1965 Acct:[id number] Age/Sex: 57 / M Adm Date: 3 Loc: Room: [address] [place] [address] Type: ADM IN Attending Dr: Rubi Ramos [...] <Electronically signed by MD Reginald Arroyo> 11/12/[address] [facility] Work Phone: [phone] Progress note Author Rubi Ramos [facility] November 12, 2022 1:03am Note Date/Time November 11, 2022 5:50pm [facility] [address] [place] [address] Hospitalist Progress Note Signed Patient: Lori Anotn MR#: [id number] : 1965 Acct:[id number] Age/Sex: 57 / M Adm Date: 3 Loc: Room: [address] [place] [address] Type: ADM IN Attending Dr: Rubi Ramos MD Copies to: ~ Date of Service: 11/11/2022 Subjective Subjective Narrative: Assessment And Plan 57M with PMH of HTN, DJD, Tobacco abuse, Depression who p/w ever, cough, and right-sided chest pain to the [facility] ED and Transferred for the evaluation and treatment of Bacterial pneumonia Bacterial pneumonia/Parainfluenza Infection still have leukocytosis (he is on steroids) , borderline fever at night Per chest CTA report done at [facility], there is evidence of 2.6 cm [...] 11/11/22 12:00 11/11/22 17:00 11/11/22 17:00 11/11/22 17:11/11/22 17:11/11/22 17:00 11/07/22 00:00 FiO2 60 11/11/22 17:00 [...] Insuln.Pen SUBCUT 11/08/23 11:59 1 units Q6HR [facility] Administration Protocol Lidocaine HCl 10 ml 11/09/22 13:55 Lidocaine 1% Pf 5 Ml Inj.Zara INFILTRATN ONCE PRN Pain Lisinopril 20 mg 11/07/22 06:00 11/08/22 07:00 Lisinopril 20 Mg Tablet PO 11/06/23 08:59 20 mg DAILY@0600 [facility] Administration Magnesium Hydroxide 30 ml 11/07/22 07:45 Magnesium Hydroxide Susp 30 Ml Udc PO 11/07/23 07:44 DAILY PRN Constipation Methylprednisolone Sodium Succinate 40 mg 11/10/22 09:00 11/11/22 08:53 Methylprednisolone Sod Succ/Pf 40 Mg/Ml (1ml) Vial IV-PUSH 11/10/23 08:59 40 mg DAILY [facility] Administration Metoprolol Tartrate 5 mg 11/07/22 05:11 [...] . Documented By: Rubi Ramos MD 11/11/22 5017 Signed By: <Electronically signed by Rubi Ramos MD> 11/12/22 0103 [facility] Work Phone: 1([phone]) 213-338305-05-2023 Progress note Author Reginald Arroyo [facility] November 11, 2022 2:52pm Note Date/Time November 11, 2022 2:42pm [facility] [address] [place], [place] [id number] Pulmonology Progress Note Signed Patient: Lori Anton MR#: [id number] : 1965 Acct:[id number] Age/Sex: 57 / M Adm Date: 3 Loc: Room: [address] [place] [address] Type: ADM IN Attending Dr: Rubi Ramos [...] <Electronically signed by MD Reginald Arroyo> 11/11/[address] [facility] Work Phone: [phone] Progress note Author Sanjay Holt [facility] November 11, 2022 11:18am Note Date/Time November 11, 2022 11:18a m [facility] [address] [place] [address] Infect. Disease Progress Note Signed Patient: Lori Anton MR#: [id number] : 1965 Acct:[id number] Age/Sex: 57 / M Adm Date: 3 Loc: Room: [address] [place] [address] Type: ADM IN Attending Dr: Rubi Ramos [...] ml @ 100 mls/hr IV Q8H [facility] Rx#:[id number] fentaNYL 1,000 mcg-*D5W* 1,000 100 / 400 200 / 200 mcg In 100 ml @ 25 MCG/HR 2.5 mls/hr IV .Q24H [facility] Rx#: [id number] propofoL 1,000 mg In 100 ml @ 200 / 600 200 / 300 100 / 300 20 MCG/KG/MIN 12.6 mls/hr IV . Q7H57M [facility] Rx#:[id number] Tube Feeding 480 / 1440 480 / 480 Tube Irrigant 50 / 110 50 / 50 Output: Urine Amount (Catheter) 1675 / 3635 680 / 680 Urethral (Earl) 1675 / 3635 680 / 680 Chest [...] Appearance Clear Urine pH 7.5 Ur Specific [place] 1.016 Urine Protein Negative Urine Glucose (UA) [...] Puff/18 Gm Inhaler) 6 puff VENT Q6HR [facility] Stop: 11/07/23 11:59 Last Admin: 11/11/22 05:23 Dose: 6 puff Albuterol/Ipratropium (Ipratropium/Albuterol 0.5-3 Mg 3 Ml Ampul.Neb) 3 ml INHALATION QID.RESP [facility] Stop: 11/05/23 07:59 Last Admin: 11/07/22 09:05 Dose: Not Given Amlodipine Besylate (Amlodipine 10 Mg Tablet) 10 mg PO DAILY@0600 [facility] Stop: 11/05/23 08:59 Last Admin: 11/08/22 07:00 Dose: 10 mg Budesonide (Budesonide 0.5 Mg/2 Ml Ampul.Neb) 0.5 mg INHALATION BID [facility] Stop: 11/05/23 11:39 Last Admin: 11/06/22 20:43 Dose: 0.5 mg Buprenorphine HCl (Buprenorphine Hcl 2 Mg Tab.Subl) 2 mg SUBLINGUAL BID@0600,1800 [facility] Stop: 05/06/23 05:59 Last Admin: 11/07/22 06:38 Dose: 2 mg Carvedilol (Carvedilol 12.5 Mg Tablet) 12.5 mg PO BID@0600,1800 [facility] Stop: 11/06/23 20:59 Last Admin: 11/08/22 07:00 Dose: 12.5 mg Chlorhexidine Gluconate (Chlorhexidine Gluconate 0.12% 15 Ml Udc) 15 ml MUCOUS MEM BID [facility] Stop: 11/07/23 09:09 Last Admin: 11/11/22 08:53 Dose: 15 ml Docusate Sodium (Docusate Liquid 100 Mg/10 Ml Udc) 100 mg OG-TUBE BID [facility] Stop: 11/07/23 08:59 Last Admin: 11/11/22 08:53 Dose: 100 mg Enoxaparin Sodium (Enoxaparin 40 Mg/0.4 Ml Syringe) 40 mg SUBCUT DAILY@1000 [facility] Stop: 11/06/23 09:59 Last Admin: 11/11/22 11:08 Dose: 40 mg Fluoxetine HCl (Fluoxetine Soln 20 Mg/5 Ml) 40 mg PO HS [facility] Stop: 11/07/23 21:59 Last Admin: 11/10/22 21:53 Dose: 40 mg Fluoxetine HCl (Fluoxetine Soln 20 Mg/5 Ml) 20 mg PO DAILY@0600 [facility] Stop: 11/08/23 05:59 Last Admin: 11/11/22 06:16 Dose: 20 mg Guaifenesin (Guaifenesin 600 Mg Tab.Er.12h) 1,200 mg PO BID [facility] Stop: 11/06/23 12:54 Last Admin: 11/06/22 20:51 Dose: 1,200 mg Levofloxacin (Levaquin) 750 mg in 150 mls @ 100 mls/hr IV Q24H [facility] Last Admin: 11/10/22 21:53 Dose: 100 mls/hr Clindamycin Phosphate (Cleocin) 600 mg in 50 mls @ 100 mls/hr IV Q8H [facility] Last Admin: 11/11/22 11:08 Dose: 100 mls/hr Fentanyl (Fentanyl 1,000 Mcg/100 Ml D5w) 1,000 mcg in 100 mls @ 2.5 mls/hr IV .Q24H [facility]; Protocol Last Admin: 11/11/22 07:45 Dose: 200 mcg/hr, 20 mls/hr Propofol (Diprivan) 1,000 mg in 100 mls @ 12.6 mls/hr IV .Q7H57M [facility]; Protocol Stop: 11/07/23 07:59 Last Admin: 11/11/22 08:52 Dose: 50 mcg/kg/min, 31.5 mls/hr Sodium Chloride (0.9% Sodium Chloride 1,000 Ml) 1,000 mls @ 75 mls/hr IV .[id number] [facility] Stop: 11/07/23 09:59 Last Admin: 11/10/22 23:51 Dose: Not Given Midazolam HCl (Versed) 100 mg in 100 mls @ 1 mls/hr IV .Q24H [facility]; Protocol Stop: 05/08/23 10:59 Last Admin: 11/11/22 11:08 Dose: 6 mg/hr, 6 mls/hr Insulin Aspart (Insulin Aspart 300 Units/3 Ml Insuln.Pen) 0 units SUBCUT Q6HR [facility]; Protocol Stop: 11/08/23 11:59 Last Admin: [...] 20 Mg Tablet) 20 mg PO DAILY@0600 [facility] Stop: 11/06/23 08:59 Last Admin: 11/08/22 07:00 Dose: 20 mg Magnesium Hydroxide (Magnesium Hydroxide Susp 30 Ml Udc) 30 ml PO DAILY PRN PRN Reason: Constipation Stop: 11/07/23 07:44 Methylprednisolone Sodium Succinate (Methylprednisolone Sod Succ/Pf 40 Mg/Ml (1ml) Vial) 40 mg IV-PUSH DAILY [facility] Stop: 11/10/23 08:59 Last Admin: 11/11/22 08:53 Dose: 40 mg Metoprolol Tartrate (Metoprolol Tartrate 5 Mg/5 Ml Vial) 5 mg IV-PUSH Q5M PRN PRN Reason: Tachyarrhythmias Last Admin: 11/07/22 05:25 Dose: 5 mg Nicotine (Nicotine Patch 21 Mg/24hr 1 Each Patch.Td24) 1 each TRANSDERML DAILY PRN PRN Reason: Nicotine Cravings Stop: 06/09/23 09:01 Pantoprazole Sodium (Pantoprazole 40 Mg Vial) 40 mg IV-PUSH DAILY [facility] Stop: 11/08/23 08:59 Last Admin: 11/11/22 08:53 Dose: 40 mg Potassium Chloride (Potassium Chloride Er 20 Meq Tab.Er.Prt) 40 meq PO DAILY PRN PRN Reason: Hypokalemia Stop: 11/05/23 06:40 Last Admin: 11/05/22 08:43 Dose: 40 meq Sennosides (Sennosides Syrup 8.8 Mg/5 Ml Udc) 8.8 mg PO BID [facility] Stop: 11/07/23 08:59 Last Admin: 11/11/22 08:53 Dose: 8.8 mg Sodium Chloride (Sodium Chloride 0.9 % 10 Ml Syringe) 0 ml IV-PUSH QSHIFT [facility] Stop: 11/05/23 05:59 Last Admin: 11/11/22 06:17 Dose: 30 ml Sodium Chloride (Sodium Chloride 0.9 % 10 Ml Syringe) 10 ml IV-PUSH PRN PRN PRN Reason: Flush Stop: 11/07/23 08:37 Sodium Chloride (Sodium Chloride 0.9 % 10 Ml Vial.Pf) 10 ml INJECTION DAILY [facility] Stop: 11/08/23 08:59 Last Admin: 11/11/22 [...] cultures remain negative. Respiratory PCR panel at [facility] without targeted pathogen but parainfluenza 3 virus [...] <Electronically signed by MD Sanjay Holt> 11/11/[address] [facility] Work Phone: 1([phone]) [phone] Progress note Author Rubi Ramos [facility] November 11, 2022 12:31am Note Date/Time November 10, 2022 6:42pm [facility] [address] [place] [address] Hospitalist Progress Note Signed Patient: Lori Anton MR#: [id number] : 1965 Acct:[id number] Age/Sex: 57 / M Adm Date: 3 Loc: Room: [address] [place] [address] Type: ADM IN Attending Dr: Rubi Ramos MD Copies to: ~ Date of Service: 11/10/2022 Subjective Subjective Narrative: Assessment And Plan 57M with PMH of HTN, DJD, Tobacco abuse, Depression who p/w ever, cough, and right-sided chest pain to the [facility] ED and Transferred for the evaluation and treatment of Bacterial pneumonia Bacterial pneumonia/Parainfluenza Infection Mild fever spike this morning UA was not suggestive for UTI, blood Cx obtained, leukocytosis Per chest CTA report done at [facility], there is evidence of 2.6 cm [...] 11/10/22 18:00 11/10/22 18:00 11/10/22 18:00 11/10/22 18:11/07/22 00:00 FiO2 80 11/10/22 18:00 Narrative: GENERAL: [...] 1,000 Ml IV 11/07/23 09:59 75 mls/hr .[id number] [facility] Administration Midazolam HCl 100 mg in 100 mls @ 1 mls/hr 11/09/22 11:00 11/10/22 06:34 Versed IV 05/08/23 10:59 6 mg/hr .Q24H [facility] 6 mls/hr Titration Protocol 1 MG/HR Insulin Aspart 0 units 11/08/22 12:00 11/10/22 18:29 Insulin Aspart 300 Units/3 Ml Insuln.Pen SUBCUT 11/08/23 11:59 Not Given Q6HR [facility] Protocol Ketorolac Tromethamine 30 mg 11/06/22 12:52 11/07/22 04:21 Ketorolac Tromethamine 30 Mg/Ml Vial IV-PUSH 11/11/22 12:51 30 mg Q6H PRN Administration Pain Scale 7 - 10 Lidocaine HCl 10 ml 11/09/22 13:55 Lidocaine 1% Pf 5 Ml Inj.Zara INFILTRATN ONCE PRN Pain Lisinopril 20 mg 11/07/22 06:00 11/08/22 07:00 Lisinopril 20 Mg Tablet PO 11/06/23 08:59 20 mg DAILY@0600 [facility] Administration Magnesium Hydroxide 30 ml 11/07/22 [...] . Documented By: Rubi Ramos MD 11/10/22 4488 Signed By: <Electronically signed by Rubi Ramos MD> 11/11/[address] [facility] Work Phone: 1([phone]) [phone] Progress note Author Ismael Huitron [facility] November 10, 2022 2:27pm Note Date/Time November 10, 2022 2:27pm [facility] [address] [place] [address] Pulmonology Progress Note Signed Patient: Lori Anton MR#: [id number] : 1965 Acct:[id number] Age/Sex: 57 / M Adm Date: 3 Loc: Room: [address] [place] [address] Type: ADM IN Attending Dr: Rubi Ramos [...] pneumothorax: Plan: Patient required placement of 32 [place] chest tube to keep up with his [...] continue suctioning to -20 from both 32 [place] chest tubes * CC time 35 minutes Documented By: Ismael Huitron MD 11/10/22 1422 Signed By: <Electronically signed by Ismael Huitron MD> 11/10/[address] [facility] Work Phone: [phone]) [phone] Progress note Author Sanjay Yanet [facility] November 10, 2022 9:42am Note Date/Time November 10, 2022 9:38am [facility] [address] [place], [place] [id number] Infect. Disease Progress Note Signed Patient: Lori Anton MR#: [id number] : 1965 Acct:[id number] Age/Sex: 57 / M Adm Date: 3 Loc: Room: [address] [place] [address] Type: ADM IN Attending Dr: Rubi Ramos [...] movements have occurred. Continues to have his Earl catheter right IJ. Exam Physical Exam Vital [...] edema (UE/LE) Objective Labs CBC/BMP: CBC, BMP 05/04/23 05/04/23 05:00 05:00 Corrected WBC 14.4 H Uncorrected [...] Q6HR [facility] Stop: 11/07/23 11:59 Last Admin: 11/10/22 06:30 Dose: 6 puff Albuterol/Ipratropium (Ipratropium/Albuterol 0.5-3 Mg 3 Ml Ampul.Neb) 3 ml INHALATION QID.RESP [facility] Stop: 11/05/23 07:59 Last Admin: 11/07/22 09:05 Dose: Not Given Amlodipine Besylate (Amlodipine 10 Mg Tablet) 10 mg PO DAILY@0600 [facility] Stop: 11/05/23 08:59 Last Admin: 11/08/22 07:00 Dose: 10 mg Budesonide (Budesonide 0.5 Mg/2 Ml Ampul.Neb) 0.5 mg INHALATION BID [facility] Stop: 11/05/23 11:39 Last Admin: 11/06/22 20:43 Dose: 0.5 mg Buprenorphine HCl (Buprenorphine Hcl 2 Mg Tab.Subl) 2 mg SUBLINGUAL BID@0600,1800 [facility] Stop: 05/06/23 05:59 Last Admin: 11/07/22 06:38 Dose: 2 mg Carvedilol (Carvedilol 12.5 Mg Tablet) 12.5 mg PO BID@0600,1800 [facility] Stop: 11/06/23 20:59 Last Admin: 11/08/22 07:00 Dose: 12.5 mg Chlorhexidine Gluconate (Chlorhexidine Gluconate 0.12% 15 Ml Udc) 15 ml MUCOUS MEM BID [facility] Stop: 11/07/23 09:09 Last Admin: 11/10/22 08:57 Dose: 15 ml Docusate Sodium (Docusate Liquid 100 Mg/10 Ml Udc) 100 mg OG-TUBE BID [facility] Stop: 11/07/23 08:59 Last Admin: 11/10/22 08:57 Dose: 100 mg Enoxaparin Sodium (Enoxaparin 40 Mg/0.4 Ml Syringe) 40 mg SUBCUT DAILY@1000 [facility] Stop: 11/06/23 09:59 Last Admin: 11/10/22 09:00 Dose: 40 mg Fluoxetine HCl (Fluoxetine Soln 20 Mg/5 Ml) 40 mg PO HS [facility] Stop: 11/07/23 21:59 Last Admin: 11/09/22 21:43 Dose: 40 mg Fluoxetine HCl (Fluoxetine Soln 20 Mg/5 Ml) 20 mg PO DAILY@0600 [facility] Stop: 11/08/23 05:59 Last Admin: 11/10/22 05:48 Dose: 20 mg Guaifenesin (Guaifenesin 600 Mg Tab.Er.12h) 1,200 mg PO BID [facility] Stop: 11/06/23 12:54 Last Admin: 11/06/22 20:51 Dose: 1,200 mg Levofloxacin (Levaquin) 750 mg in 150 mls @ 100 mls/hr IV Q24H [facility] Last Admin: 11/09/22 21:22 Dose: 100 mls/hr Clindamycin Phosphate (Cleocin) 600 mg in 50 mls @ 100 mls/hr IV Q8H [facility] Last Admin: 11/10/22 09:00 Dose: 100 mls/hr Fentanyl (Fentanyl 1,000 Mcg/100 Ml D5w) 1,000 mcg in 100 mls @ 2.5 mls/hr IV .Q24H [facility]; Protocol Last Admin: 11/10/22 08:57 Dose: 200 mcg/hr, 20 mls/hr Propofol (Diprivan) 1,000 mg in 100 mls @ 12.6 mls/hr IV .Q7H57M [facility]; Protocol Stop: 11/07/23 07:59 Last Admin: 11/10/22 07:51 Dose: 50 mcg/kg/min, 31.5 mls/hr Sodium Chloride (0.9% Sodium Chloride 1,000 Ml) 1,000 mls @ 75 mls/hr IV .[id number] [facility] Stop: 11/07/23 09:59 Last Admin: 11/10/22 06:29 Dose: Not Given Midazolam HCl (Versed) 100 mg in 100 mls @ 1 mls/hr IV .Q24H [facility]; Protocol Stop: 05/08/23 10:59 Last Titration: 11/10/22 06:34 Dose: 6 mg/hr, 6 mls/hr Insulin Aspart (Insulin Aspart 300 Units/3 Ml Insuln.Pen) 0 units SUBCUT Q6HR [facility]; Protocol Stop: 11/08/23 11:59 Last Admin: [...] 20 Mg Tablet) 20 mg PO DAILY@0600 [facility] Stop: 11/06/23 08:59 Last Admin: 11/08/22 07:00 Dose: 20 mg Magnesium Hydroxide (Magnesium Hydroxide Susp 30 Ml Udc) 30 ml PO DAILY PRN PRN Reason: Constipation Stop: 11/07/23 07:44 Methylprednisolone Sodium Succinate (Methylprednisolone Sod Succ/Pf 40 Mg/Ml (1ml) Vial) 40 mg IV-PUSH DAILY [facility] Stop: 11/10/23 08:59 Last Admin: 11/10/22 08:56 [...] 10 Ml Vial.Pf) 10 ml INJECTION DAILY [facility] Stop: 11/08/23 08:59 Last Admin: 11/10/22 [...] cultures remain negative. Respiratory PCR panel at [facility] without targeted pathogen but parainfluenza 3 virus targeted here. Legionella urine antigen negative, Legionella antibodies negative. Urine strep antigen negative. HIV negative. Continues on Levaquin and Flagyl. Patient remains on steroids. No fever this morning. Not yet documented. Repeat cultures from blood and urine. Chest x-ray this morning as above. Patient without stools so no diarrhea. Documented By: Sanjay Holt MD 11/10/22935 Signed By: <Electronically signed by MD Sanjay Holt> 11/10/2242 [facility] Work Phone: 1([phone]) 101-881705-04-2023 Progress note Author Rubi Ramos [facility] November 10, 2022 1:16am Note Date/Time November 09, 2022 7:10pm [facility] [address] [place] [address] Hospitalist Progress Note Signed Patient: Lori Anton MR#: [id number] : 1965 Acct:[id number] Age/Sex: 57 / M Adm Date: 3 Loc: Room: [address] [place] [address] Type: ADM IN Attending Dr: Rubi Ramos MD Copies to: ~ Date of Service: 11/09/2022 Subjective Subjective Narrative: Assessment And Plan 57M with PMH of HTN, DJD, Tobacco abuse, Depression who p/w ever, cough, and right-sided chest pain to the [facility] ED and Transferred for the evaluation and treatment of Bacterial pneumonia/Parainfluenza Infection Afebrile, leukocytosis is resolving , Per chest CTA report done at [facility], there is evidence of 2.6 cm [...] 1,000 Ml IV 11/07/23 09:59 Not Given .[id number] [facility] Midazolam HCl 100 mg in 100 mls @ 1 mls/hr 11/09/22 11:00 11/09/22 17:35 Versed IV 05/08/23 10:59 5 mg/hr .Q24H [facility] 5 mls/hr Titration Protocol 1 MG/HR Insulin Aspart 0 units 11/08/22 12:00 11/09/22 18:31 Insulin Aspart 300 Units/3 Ml Insuln.Pen SUBCUT 11/08/23 11:59 Not Given Q6HR [facility] Protocol Ketorolac Tromethamine 30 mg 11/06/22 12:52 11/07/22 04:21 Ketorolac Tromethamine 30 Mg/Ml Vial IV-PUSH 11/11/22 12:51 30 mg Q6H PRN Administration Pain Scale 7 - 10 Lidocaine HCl 10 ml 11/09/22 13:55 Lidocaine 1% Pf 5 Ml Inj.Zara INFILTRATN ONCE PRN Pain Lisinopril 20 mg 11/07/22 06:00 11/08/22 07:00 Lisinopril 20 Mg Tablet PO 11/06/23 08:59 20 mg DAILY@0600 [facility] Administration Magnesium Hydroxide 30 ml 11/07/22 07:45 Magnesium Hydroxide Susp 30 Ml Udc PO 11/07/23 07:44 DAILY PRN Constipation Methylprednisolone Sodium Succinate 40 mg 11/10/22 09:00 Methylprednisolone Sod Succ/Pf 40 Mg/Ml (1ml) Vial IV-PUSH 11/10/23 08:59 DAILY [facility] Metoprolol Tartrate 5 mg 11/07/22 05:11 11/07/22 [...] . Documented By: Rubi Ramos MD 11/09/22 1909 Signed By: <Electronically signed by Rubi Ramos MD> 11/10/[address] [facility] Work Phone: 1([phone]) 561-179005-03-2023 Progress note Author Ismael Huitron [facility] November 09, 2022 3:14pm Note Date/Time November 09, 2022 1:23pm [facility] [address] [place] [address] Pulmonology Progress Note Signed Patient: Lori Anton MR#: [id number] : 1965 Acct:[id number] Age/Sex: 57 / M Adm Date: 3 Loc: Room: [address] [place] [address] Type: ADM IN Attending Dr: Rubi Ramos MD Copies to: ~ Date of Service: 11/09/2022 Subjective Subjective Narrative: Patient continued to improve after placement of second chest tube, his air leak has diminished markedly since, chest x-ray continued show complete reexpansion of the lung, I will remove his small pneumothorax catheter from the right midclavicular area and maintain the large 32 [place] chest tube in place with suctioning at [...] pneumothorax: Plan: Patient required placement of 32 [place] chest tube to keep up with his 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 Since (3) Hilar lymphadenopathy: Plan: This could be reactive, there was [facility] patient expanded well once intubated, [...] minutes Documented By: Ismael Huitron MD 11/09/22 1317 Signed By: <Electronically signed by Ismael Huitron MD> 11/09/[address] [facility] Work Phone: 1([phone]) [phone] [facility] Progress note Author Sanjay Holt [facility] November 09, 2022 9:12am Note Date/Time November 09, 2022 9:08am [facility] [address] [place] [address] Infect. Disease Progress Note Signed Patient: Lori Anton MR#: [id number] : 1965 Acct:[id number] Age/Sex: 57 / M Adm Date: 3 Loc: Room: [address] [place] [address] Type: ADM IN Attending Dr: Rubi Ramos [...] Puff/18 Gm Inhaler) 6 puff VENT Q6HR [facility] Stop: 11/07/23 11:59 Last Admin: 11/09/22 06:31 Dose: 6 puff Albuterol/Ipratropium (Ipratropium/Albuterol 0.5-3 Mg 3 Ml Ampul.Neb) 3 ml INHALATION QID.RESP [facility] Stop: 11/05/23 07:59 Last Admin: 11/07/22 09:05 Dose: Not Given Amlodipine Besylate (Amlodipine 10 Mg Tablet) 10 mg PO DAILY@0600 [facility] Stop: 11/05/23 08:59 Last Admin: 11/08/22 07:00 Dose: 10 mg Budesonide (Budesonide 0.5 Mg/2 Ml Ampul.Neb) 0.5 mg INHALATION BID [facility] Stop: 11/05/23 11:39 Last Admin: 11/06/22 20:43 Dose: 0.5 mg Buprenorphine HCl (Buprenorphine Hcl 2 Mg Tab.Subl) 2 mg SUBLINGUAL BID@0600,1800 [facility] Stop: 05/06/23 05:59 Last Admin: 11/07/22 06:38 Dose: 2 mg Carvedilol (Carvedilol 12.5 Mg Tablet) 12.5 mg PO BID@0600,1800 [facility] Stop: 11/06/23 20:59 Last Admin: 11/08/22 07:00 Dose: 12.5 mg Chlorhexidine Gluconate (Chlorhexidine Gluconate 0.12% 15 Ml Udc) 15 ml MUCOUS MEM BID [facility] Stop: 11/07/23 09:09 Last Admin: 11/09/22 08:28 Dose: 15 ml Docusate Sodium (Docusate Liquid 100 Mg/10 Ml Udc) 100 mg OG-TUBE BID [facility] Stop: 11/07/23 08:59 Last Admin: 11/09/22 08:28 Dose: 100 mg Enoxaparin Sodium (Enoxaparin 40 Mg/0.4 Ml Syringe) 40 mg SUBCUT DAILY@1000 [facility] Stop: 11/06/23 09:59 Last Admin: 11/08/22 10:14 Dose: 40 mg Fluoxetine HCl (Fluoxetine Soln 20 Mg/5 Ml) 40 mg PO HS [facility] Stop: 11/07/23 21:59 Last Admin: 11/08/22 21:00 Dose: 40 mg Fluoxetine HCl (Fluoxetine Soln 20 Mg/5 Ml) 20 mg PO DAILY@0600 [facility] Stop: 11/08/23 05:59 Last Admin: 11/09/22 05:06 Dose: 20 mg Guaifenesin (Guaifenesin 600 Mg Tab.Er.12h) 1,200 mg PO BID [facility] Stop: 11/06/23 12:54 Last Admin: 11/06/22 20:51 Dose: 1,200 mg Levofloxacin (Levaquin) 750 mg in 150 mls @ 100 mls/hr IV Q24H [facility] Last Infusion: 11/08/22 23:10 Dose: Infused Clindamycin Phosphate (Cleocin) 600 mg in 50 mls @ 100 mls/hr IV Q8H [facility] Last Infusion: 11/09/22 02:31 Dose: Infused Fentanyl (Fentanyl 1,000 Mcg/100 Ml D5w) 1,000 mcg in 100 mls @ 2.5 mls/hr IV .Q24H [facility]; Protocol Last Admin: 11/08/22 21:01 Dose: 100 mcg/hr, 10 mls/hr Propofol (Diprivan) 1,000 mg in 100 mls @ 12.6 mls/hr IV .Q7H57M [facility]; Protocol Stop: 11/07/23 07:59 Last Titration: 11/09/22 05:39 Dose: 40 mcg/kg/min, 25.2 mls/hr Sodium Chloride (0.9% Sodium Chloride 1,000 Ml) 1,000 mls @ 75 mls/hr IV .[id number] [facility] Stop: 11/07/23 09:59 Last Admin: 11/09/22 06:07 Dose: 75 mls/hr Cisatracurium Besylate 200 mg/ (Dextrose) 200 mls @ 12.6 mls/hr IV .[id number] [facility]; Protocol Stop: 11/07/23 10:29 Last Titration: 11/09/22 00:34 Dose: 3 mcg/kg/min, 18.9 mls/hr Insulin Aspart (Insulin Aspart 300 Units/3 Ml Insuln.Pen) 0 units SUBCUT Q6HR [facility]; Protocol Stop: 11/08/23 11:59 Last Admin: 11/09/22 05:26 Dose: Not Given Ketorolac Tromethamine (Ketorolac Tromethamine 30 Mg/Ml Vial) 30 mg IV-PUSH Q6HPRN PRN Reason: Pain Scale 7 - 10 Stop: 11/11/22 12:51 Last Admin: 11/07/22 04:21 Dose: 30 mg Lisinopril (Lisinopril 20 Mg Tablet) 20 mg PO DAILY@0600 [facility] Stop: 11/06/23 08:59 Last Admin: 11/08/22 07:00 Dose: 20 mg Magnesium Hydroxide (Magnesium Hydroxide Susp 30 Ml Udc) 30 ml PO DAILY PRN PRN Reason: Constipation Stop: 11/07/23 07:44 Methylprednisolone Sodium Succinate (Methylprednisolone Sod Succ/Pf 40 Mg/Ml (1ml) Vial) 40 mg IV-PUSH Q8HR [facility] Stop: 11/05/23 13:59 Last Admin: 11/09/22 [...] cultures remain negative. Respiratory PCR panel at [facility] without targeted pathogen but parainfluenza 3 virus targeted here. Legionella urine antigen negative, Legionella antibodies negative. Urinestrep antigen negative. HIV negative. Continues on Levaquin and Flagyl. Day 5of antibiotics Documented By: Sanjay Holt MD 11/09/22905 Signed By: <Electronically signed by MD Sanjay Holt> 11/09/22911 [facility] Work Phone: 1([phone] 189-423705-03-2023 Progress note Author Rubi Ramos [facility] November 09, 2022 1:09am Note Date/Time November 08, 2022 7:20pm [facility] [address] [place] [address] Hospitalist Progress Note Signed Patient: Lori Anton MR#: [id number] : 1965 Acct:[id number] Age/Sex: 57 / M Adm Date: 3 Loc: Room: [address] [place] [address] Type: ADM IN Attending Dr: Rubi Ramos [...] Dose Route Start Last Admin Trade Name Clarkq PRN Reason Stop Dose Admin Acetaminophen 1,000 [...] 1,000 Ml IV 11/07/23 09:59 Not Given .[id number] [facility] Cisatracurium Besylate 200 mg/ 200 mls @ 12.6 mls/hr 11/07/22 10:30 11/08/22 17:38 Dextrose IV 11/07/23 10:29 3 mcg/kg/min .[id number] [facility] 18.9 mls/hr Titration Protocol 2 MCG/KG/MIN Norepinephrine Bitartrate 8 mg in 250 mls @ 3.75 mls/hr 11/07/22 17:15 11/08/22 17:39 Levophed IV 11/07/23 17:14 Not Given .Q24H [facility] Protocol 2 MCG/MIN Insulin Aspart 0 units 11/08/22 12:00 11/08/22 17:45 Insulin Aspart 300 Units/3 Ml Insuln.Pen SUBCUT 11/08/23 11:59 Not Given Q6HR [facility] Protocol Ketorolac Tromethamine 30 mg 11/06/22 [...] by Rubi Ramos MD> 11/09/[address] [facility] Work Phone: 1([phone]) 258-522805-02-2023 Progress note Author Ismael Huitron [facility] November 08, 2022 3:23pm Note Date/Time November 08, 2022 3:23pm [facility] [address] [place] [address] Pulmonology Progress Note Signed Patient: Lori Anton MR#: [id number] : 1965 Acct:[id number] Age/Sex: 57 / M Adm Date: 3 Loc: Room: [address] [place] [address] Type: ADM IN Attending Dr: Rubi Ramos MD Copies to: ~ Date of Service: 11/08/2022 Subjective Subjective Narrative: Patient has stabilized from the respiratory standpoint overnight but had worsening air leak from his chest tube now continuous air leak is noted this morning, chest x-ray showed worsening right pneumothorax, immediately after seeing that I placed a 32 [place] chest tube in addition to the small pneumothorax catheter in place, he had continuous air leak from both, and chest x-ray showed complete reexpansion of the lung after the second chest tube placement. This was accompanied by improving oxygenation he is down to 40% [id number]. I started weaning PEEP down as well [...] pneumothorax: Plan: Patient required placement of 32 [place] chest tube to keep up with his [...] <Electronically signed by Ismael Huitron MD> 11/08/[address] [facility] Work Phone: [phone]) 792-232005-02-2023 [facility] Progress note Author Sanjay Holt [facility] November 08, 2022 8:52am Note Date/Time November 08, 2022 8:47am [facility] [address] [place] [address] Infect. Disease Progress Note Signed Patient: Lori Anton MR#: [id number] : 1965 Acct:[id number] Age/Sex: 57 / M Adm Date: 3 Loc: Room: [address] [place] [address] Type: ADM IN Attending Dr: Rubi Ramos [...] ml @ 2 MCG/KG/MIN 12.6 mls/hr IV .[id number] [facility] Rx#:[id number] Clindamycin 600 mg/50 ml-*D5w* 50 / 150 50 / 50 600 mg In 50 ml @ 100 mls/hr IV Q8H [facility] Rx#:[id number] Sodium Chloride 0.9% 1,000 ml 1 1000 / 1000 ,000 ml @ 75 mls/hr IV .[id number] [facility] Rx#:[id number] fentaNYL 1,000 mcg-*D5W* 1,000 100 / 200 mcg In 100 ml @ 25 MCG/HR 2.5 mls/hr IV .Q24H [facility] Rx#: [id number] levoFLOXacin 750MG-*D5W* 750 mg 150 / 150 In 150 ml @ 100 mls/hr IV Q24H [facility] Rx#:[id number] propofoL 1,000 mg In 100 ml @ 200 / 400 100 / 100 20 MCG/KG/MIN 12.6 mls/hr IV . Q7H57M [facility] Rx#:[id number] Tube Feeding 0 / 0 Tube Irrigant 30 / 30 Output: Urine Amount (Catheter) 500 / 675 425 / 425 Urethral (Earl) 500 / 675 425 / 425 Chest Tube Drainage Right Upper Anterior Chest Other: # Bowel Movements 0 # Incontinent [...] Puff/18 Gm Inhaler) 6 puff VENT Q6HR [facility] Stop: 11/07/23 11:59 Last Admin: 11/08/22 05:35 Dose: 6 puff Albuterol/Ipratropium (Ipratropium/Albuterol 0.5-3 Mg 3 Ml Ampul.Neb) 3 ml INHALATION QID.RESP [facility] Stop: 11/05/23 07:59 Last Admin: 11/07/22 09:05 Dose: Not Given Amlodipine Besylate (Amlodipine 10 Mg Tablet) 10 mg PO DAILY@0600 [facility] Stop: 11/05/23 08:59 Last Admin: 11/08/22 07:00 Dose: 10 mg Budesonide (Budesonide 0.5 Mg/2 Ml Ampul.Neb) 0.5 mg INHALATION BID [facility] Stop: 11/05/23 11:39 Last Admin: 11/06/22 20:43 Dose: 0.5 mg Buprenorphine HCl (Buprenorphine Hcl 2 Mg Tab.Subl) 2 mg SUBLINGUAL BID@0600,1800 [facility] Stop: 05/06/23 05:59 Last Admin: 11/07/22 06:38 Dose: 2 mg Carvedilol (Carvedilol 12.5 Mg Tablet) 12.5 mg PO BID@0600,1800 [facility] Stop: 11/06/23 20:59 Last Admin: 11/08/22 07:00 Dose: 12.5 mg Chlorhexidine Gluconate (Chlorhexidine Gluconate 0.12% 15 Ml Udc) 15 ml MUCOUS MEM BID [facility] Stop: 11/07/23 09:09 Last Admin: 11/07/22 21:56 Dose: 15 ml Docusate Sodium (Docusate Liquid 100 Mg/10 Ml Udc) 100 mg OG-TUBE BID [facility] Stop: 11/07/23 08:59 Last Admin: 11/07/22 21:56 Dose: 100 mg Enoxaparin Sodium (Enoxaparin 40 Mg/0.4 Ml Syringe) 40 mg SUBCUT DAILY@1000 [facility] Stop: 11/06/23 09:59 Last Admin: 11/07/22 10:37 Dose: 40 mg Fluoxetine HCl (Fluoxetine Soln 20 Mg/5 Ml) 40 mg PO HS [facility] Stop: 11/07/23 21:59 Last Admin: 11/07/22 21:57 Dose: 40 mg Fluoxetine HCl (Fluoxetine Soln 20 Mg/5 Ml) 20 mg PO DAILY@0600 [facility] Stop: 11/08/23 05:59 Last Admin: 11/08/22 07:00 Dose: 20 mg Guaifenesin (Guaifenesin 600 Mg Tab.Er.12h) 1,200 mg PO BID [facility] Stop: 11/06/23 12:54 Last Admin: 11/06/22 20:51 Dose: 1,200 mg Levofloxacin (Levaquin) 750 mg in 150 mls @ 100 mls/hr IV Q24H [facility] Last Infusion: 11/07/22 23:33 Dose: Infused Clindamycin Phosphate (Cleocin) 600 mg in 50 mls @ 100 mls/hr IV Q8H [facility] Last Infusion: 11/08/22 06:00 Dose: Infused Fentanyl (Fentanyl 1,000 Mcg/100 Ml D5w) 1,000 mcg in 100 mls @ 2.5 mls/hr IV .Q24H [facility]; Protocol Last Admin: 11/08/22 02:00 Dose: 100 mcg/hr, 10 mls/hr Propofol (Diprivan) 1,000 mg in 100 mls @ 12.6 mls/hr IV .Q7H57M [facility]; Protocol Stop: 11/07/23 07:59 Last Admin: 11/08/22 04:01 Dose: 35 mcg/kg/min, 22.05 mls/hr Sodium Chloride (0.9% Sodium Chloride 1,000 Ml) 1,000 mls @ 75 mls/hr IV .[id number] [facility] Stop: 11/07/23 09:59 Last Admin: 11/07/22 23:32 Dose: 75 mls/hr Cisatracurium Besylate 200 mg/ (Dextrose) 200 mls @ 12.6 mls/hr IV .[id number] [facility]; Protocol Stop: 11/07/23 10:29 Last Admin: 11/08/22 06:29 Dose: 2 mcg/kg/min, 12.6 mls/hr Norepinephrine Bitartrate (Levophed) 8 mg in 250 mls @ 3.75 mls/hr IV .Q24H [facility]; Protocol Stop: 11/07/23 17:14 Last Admin: 11/08/22 07:54 Dose: Not Given Ketorolac Tromethamine (Ketorolac Tromethamine 30 Mg/Ml Vial) 30 mg IV-PUSH Q6HPRN PRN Reason: Pain Scale 7 - 10 Stop: 11/11/22 12:51 Last Admin: 11/07/22 04:21 Dose: 30 mg Lisinopril (Lisinopril 20 Mg Tablet) 20 mg PO DAILY@0600 [facility] Stop: 11/06/23 08:59 Last Admin: 11/08/22 07:00 Dose: 20 mg Magnesium Hydroxide (Magnesium Hydroxide Susp 30 Ml Udc) 30 ml PO DAILY PRN PRN Reason: Constipation Stop: 11/07/23 07:44 Methylprednisolone Sodium Succinate (Methylprednisolone Sod Succ/Pf 40 Mg/Ml (1ml) Vial) 40 mg IV-PUSH Q8HR [facility] Stop: 11/05/23 13:59 Last Admin: 11/08/22 [...] 40 Mg Vial) 40 mg IV-PUSH DAILY [facility] Stop: 11/08/23 08:59 Potassium Chloride (Potassium Chloride Er 20 Meq Tab.Er.Prt) 40 meq PO DAILY PRN PRN Reason: Hypokalemia Stop: 11/05/23 06:40 Last Admin: 11/05/22 08:43 Dose: 40 meq Sennosides (Sennosides Syrup 8.8 Mg/5 Ml Udc) 8.8 mg PO BID [facility] Stop: 11/07/23 08:59 Last Admin: 11/07/22 21:56 Dose: 8.8 mg Sodium Chloride (Sodium Chloride 0.9 % 10 Ml Syringe) 0 ml IV-PUSH QSHIFT [facility] Stop: 11/05/23 05:59 Last Admin: 11/08/22 07:00 Dose: 40 ml Sodium Chloride (Sodium Chloride 0.9 % 10 Ml Syringe) 10 ml IV-PUSH PRN PRN PRN Reason: Flush Stop: 11/07/23 08:37 Sodium Chloride (Sodium Chloride 0.9 % 10 Ml Vial.Pf) 10 ml INJECTION DAILY [facility] Stop: 11/08/23 08:59 Tizanidine HCl (Tizanidine [...] by MD Sanjay Holt> 11/08/[address] [facility] Work Phone: [phone] 537-520305-02-2023 Progress note Author Rubi Ramos [facility] November 08, 2022 1:26am Note Date/Time November 07, 2022 4:20pm [facility] [address] [place] [address] Hospitalist Progress Note Signed Patient: Lori Anton MR#: [id number] : 1965 Acct:[id number] Age/Sex: 57 / M Adm Date: 3 Loc: Room: [address] [place] [address] Type: ADM IN Attending Dr: Rubi Ramos [...] 11/07/22 12:00 11/07/22 14:00 11/07/22 14:11/07/22 14:11/07/22 14:00 11/07/22 14:00 11/07/22 00:00 FiO2 100 [...] Udc OG-TUBE 11/07/23 08:59 Not Given BID [facility] Enoxaparin Sodium 40 mg 11/06/22 10:00 11/07/22 10:37 Enoxaparin 40 Mg/0.4 Ml Syringe SUBCUT 11/06/23 09:59 40 mg DAILY@1000 [facility] Administration Fluoxetine HCl 40 mg 11/07/22 22:00 Fluoxetine Soln 20 Mg/5 Ml PO 11/07/23 21:59 HS [facility] Fluoxetine HCl 20 mg 11/08/22 06:00 Fluoxetine Soln 20 Mg/5 Ml PO 11/08/23 05:59 DAILY@0600 [facility] Guaifenesin 1,200 mg 11/06/22 12:55 11/06/22 20:51 [...] 1,000 Ml IV 11/07/23 09:59 75 mls/hr .[id number] [facility] Administration Cisatracurium Besylate 200 mg/ 200 mls @ 12.6 mls/hr 11/07/22 10:30 11/07/22 10:57 Dextrose IV 11/07/23 10:29 1.5 mcg/kg/min .L88H44T [facility] 9.45 mls/hr Administration Protocol 2 MCG/KG/MIN [...] signed by Rubi Ramos MD> 11/08/[address] [facility] Work Phone: [phone] Progress note Author Ismael Huitron [facility] November 07, 2022 2:05pm Note Date/Time November 07, 2022 1:56pm [facility] [address] [place] [address] Pulmonology Progress Note Signed Patient: Lori Anton MR#: [id number] : 1965 Acct:[id number] Age/Sex: 57 / M Adm Date: 3 Loc: Room: [address] [place] [address] Type: ADM IN Attending Dr: Rubi Ramos MD Copies to: ~ Date of Service: 11/07/2022 Subjective Subjective Narrative: Patient developed progressive respiratory distress overnight associated with right-sided pleuritic pain, due to severe hypoxia and work of breathing, patientwas intubated by nurse mop machine operator this morning, immediately following that and with [...] <Electronically signed by Ismael Huitron MD> 11/07/22 140 [facility] Work Phone: 1([phone] 505-143105-01-2023 [facility] History general Narrative - Reported* Type Description Date Medical History htn Medical History arthritis Medical History anxiety [place] [facility] [place] [facility] Other 05-01-2023 Consult note Author Sanjay Holt [facility] November 07, 2022 9:23am Note Date/Time November 07, 2022 9:11am [facility] [address] [place], [place] [id number] Infect. Disease Consult Note Signed Patient: Lori Anton MR#: [id number] : 1965 Acct:[id number] Age/Sex: 57 / M Adm Date: 3 Loc: Room: [address] [place] [address] Type: ADM IN Attending Dr: Netta Wiseman MD Copies to: Shaista Corona, LIDA-C MD Netta Montez MD~ HPI Data of Consult Consult date: 11/07/22 Requesting Physician: Netta Wiseman MD Primary Care Provider: Shaista Corona Consult Narrative History of present illness: Mr. Anton is a 57 year old male who is currently intubated and sedated on the ventilator. He had been at [facility] prior to coming to [facility] and was centerspecifically to have a bronchoscopy performed. He has pneumonia that PCR panel from [facility] did not yield any targets but respiratory [...] 10 Mg Tablet) 10 mg PO DAILY@0600 [facility] Stop: 11/05/23 08:59 Last Admin: 11/07/22 06:36 Dose: 10 mg Budesonide (Budesonide 0.5 Mg/2 Ml Ampul.Neb) 0.5 mg INHALATION BID [facility] Stop: 11/05/23 11:39 Last Admin: 11/06/22 20:43 Dose: 0.5 mg Buprenorphine HCl (Buprenorphine Hcl 2 Mg Tab.Subl) 2 mg SUBLINGUAL BID@0600,1800 [facility] Stop: 05/06/23 05:59 Last Admin: 11/07/22 06:38 Dose: 2 mg Carvedilol (Carvedilol 12.5 Mg Tablet) 12.5 mg PO BID@0600,1800 [facility] Stop: 11/06/23 20:59 Last Admin: 11/07/22 06:37 Dose: 12.5 mg Docusate Sodium (Docusate Liquid 100 Mg/10 Ml Udc) 100 mg OG-TUBE BID [facility] Stop: 11/07/23 08:59 Enoxaparin Sodium (Enoxaparin 40 Mg/0.4 Ml Syringe) 40 mg SUBCUT DAILY@1000 [facility] Stop: 11/06/23 09:59 Last Admin: 11/06/22 09:09 Dose: 40 mg Fluoxetine HCl (Fluoxetine Soln 20 Mg/5 Ml) 40 mg PO HS [facility] Stop: 11/07/23 21:59 Fluoxetine HCl (Fluoxetine Soln 20 Mg/5 Ml) 20 mg PO DAILY@0600 [facility] Stop: 11/08/23 05:59 Guaifenesin (Guaifenesin 600 Mg Tab.Er.12h) 1,200 mg PO BID [facility] Stop: 11/06/23 12:54 Last Admin: 11/06/22 20:51 Dose: 1,200 mg Levofloxacin (Levaquin) 750 mg in 150 mls @ 100 mls/hr IV Q24H [facility] Last Admin: 11/06/22 21:00 Dose: 100 mls/hr Clindamycin Phosphate (Cleocin) 600 mg in 50 mls @ 100 mls/hr IV Q8H [facility] Last Admin: 11/07/22 02:14 Dose: 100 mls/hr Fentanyl (Fentanyl 1,000 Mcg/100 Ml D5w) 1,000 mcg in 100 mls @ 2.5 mls/hr IV .Q24H [facility]; Protocol Propofol (Diprivan) 1,000 mg in 100 mls @ 12.6 mls/hr IV .Q7H57M [facility]; Protocol Stop: 11/07/23 07:59 Ketorolac Tromethamine (Ketorolac Tromethamine 30 Mg/Ml Vial) 30 mg IV-PUSH Q6HPRN PRN Reason: Pain Scale 7 - 10 Stop: 11/11/22 12:51 Last Admin: 11/07/22 04:21 Dose: 30 mg Lisinopril (Lisinopril 20 Mg Tablet) 20 mg PO DAILY@0600 [facility] Stop: 11/06/23 08:59 Last Admin: 11/07/22 06:37 Dose: 20 mg Magnesium Hydroxide (Magnesium Hydroxide Susp 30 Ml Udc) 30 ml PO DAILY PRN PRN Reason: Constipation Stop: 11/07/23 07:44 Methylprednisolone Sodium Succinate (Methylprednisolone Sod Succ/Pf 40 Mg/Ml (1ml) Vial) 40 mg IV-PUSH Q8HR [facility] Stop: 11/05/23 13:59 Last Admin: 11/07/22 06:39 Dose: 40 mg Metoprolol Tartrate (Metoprolol Tartrate 5 Mg/5 Ml Vial) 5 mg IV-PUSH Q5M PRN PRN Reason: Tachyarrhythmias Last Admin: 11/07/22 05:25 Dose: 5 mg Nicotine (Nicotine Patch 21 Mg/24hr 1 Each Patch.Td24) 1 each TRANSDERML DAILY PRN PRN Reason: Nicotine Cravings Stop: 12/16/22 09:01 Pantoprazole Sodium (Pantoprazole 40 Mg Vial) 40 mg IV-PUSH DAILY [facility] Stop: 11/08/23 08:59 Potassium Chloride (Potassium Chloride Er 20 Meq Tab.Er.Prt) 40 meq PO DAILY PRN PRN Reason: Hypokalemia Stop: 11/05/23 06:40 Last Admin: 11/05/22 08:43 Dose: 40 meq Sennosides (Sennosides Syrup 8.8 Mg/5 Ml Udc) 8.8 mg PO BID [facility] Stop: 11/07/23 08:59 Sodium Chloride (Sodium Chloride 0.9 % 10 Ml Syringe) 0 ml IV-PUSH QSHIFT [facility] Stop: 11/05/23 05:59 Last Admin: 11/06/22 14:30 Dose: 10 ml Sodium Chloride (Sodium Chloride 0.9 % 10 Ml Syringe) 10 ml IV-PUSH PRN PRN PRN Reason: Flush Stop: 11/07/23 08:37 Sodium Chloride (Sodium Chloride 0.9 % 10 Ml Vial.Pf) 10 ml INJECTION DAILY [facility] Stop: 11/08/23 08:59 Tizanidine HCl (Tizanidine [...] 03:00 100 11/07/22 02:00 100 11/07/22 02:09 11/06/22 20:00 100 11/07/22 01:00 100 11/07/22 00:00 100 11/06/22 23:00 100 11/06/22 22:00 100 11/06/22 21:00 100 11/06/22 20:00 100 11/07/22 00:00 11/06/22 23:14 100 11/06/22 20:38 11/06/22 20:00 11/06/22 20:25 11/06/22 18:55 100 11/06/22 16:00 11/06/22 16:00 11/06/22 16:00 100 11/06/22 16:01 11/06/22 15:50 11/06/22 12:59 11/06/22 12:00 100 11/06/22 12:57 100 11/06/22 12:00 100 11/06/22 12:19 11/06/22 11:00 100 11/06/22 12:00 Intake and Output 11/06/22 11/07/22 11/07/22 23:59 07:59 15:59 Intake Total 730 / 1630 500 / 500 Output Total 300 / 1150 450 / 450 Balance 430 / 480 50 / 50 Intake: IV 50 / 150 Clindamycin 600 mg/50 ml-*D5w* 50 / 150 600 mg In 50 ml @ 100 mls/hr IV Q8H [facility] Rx#:[id number] Oral 680 / 1480 500 / 500 [...] cultures remain negative. Respiratory PCR panel at [facility] without targeted pathogen but parainfluenza 3 virus targeted here. Will check antibodies to Legionella and urine antigen for Legionella and Streptococcus. Documented By: Sanjay Holt MD 11/07/22902 Signed By: <Electronically signed by MD Sanjay Holt> 11/07/22922 [facility] Work Phone: 1(268) 866-669005-01-2023 Procedure [facility]04-30-2023 Progress note Author Kaylee Mclaughlin [facility] November 06, 2022 4:09pm Note Date/Time November 06, 2022 4:1 [address] [facility] [address] [place] [address] Pulmonology Progress Note Signed Patient: Lori Anton MR#: [id number] : 1965 Acct:[id number] Age/Sex: 57 / M Adm Date: 3 Loc: Room: [address] [place] [address] Type: ADM IN Attending Dr: Netta Wiseman [...] No deformity. -Skin: No rash. Slightly diaphoretic. -ORGAN GRINDER: Alert and oriented x3, no focal deficits. [...] as the CT angiogram was done at [facility] and no disc was sent with records. We did call [facility] and requested chest CTA imaging. -Chest [...] Plan: -Per chest CTA report done at [facility], there is evidence of 2.6 cm right hilar lymph node compressing the right lower lobe bronchus leading to right lower lobe atelectasis . - Again, the CTA film is not available for my review at this time, this was requested from [facility]. However this is concerning for primary [...] undiagnosed COPD Plan -Patient was sent from [facility] to [facility] after hewas told he needed bronchoscopy. -Repeat [...] signed by Kaylee Mclaughlin MD> 11/06/22 1609 [facility] Work Phone: 1(413) [phone] Progress note Author Netta Wiseman [facility] November 06, 2022 8:49am Note Date/Time November 06, 2022 8:[address] [facility] [address] [place] [address] Hospitalist Progress Note Signed Patient: Lori Anton MR#: [id number] : 1965 Acct:[id number] Age/Sex: 57 / M Adm Date: 3 Loc: Room: [address] [place] [address] Type: ADM IN Attending Dr: Netta Wiseman [...] by Netta Wiseman MD> 11/06/[address] [facility] Work Phone: 1([phone]) 386-173904-29-2023 Consult note Author Kaylee Mclaughlin [facility] November 05, 2022 12:45pm Note Date/Time November 05, 2022 12: 05pm [facility] [address] [place] [address] Pulmonology Consult Note Signed Patient: Lori Anton MR#: [id number] : 1965 Acct:[id number] Age/Sex: 57 / M Adm Date: 3 Loc: 4P Room: [id number] Type: ADM IN Attending Dr: Netta Wiseman MD Copies to: Shaista Corona, BONDING SUPERVISOR-C MD Netta Pillai MD~ HPI Date/Time of Consultation: Date of Service: 11/05/2022 Time of Service: 11:45 Consulting Provider: Kaylee Mclaughlin Requesting Provider: Netta Wiseman Reason for Consult: Acute hypoxemic respiratory failure, right lower lobe atelectasis History of Present Illness History of present illness: Mr. Anton is a 57 year old male with more than 30-ntbz-bizf smoking history whosmokes a pack a day, history of hypertension and arthritis was transferred from [facility] last night for acute hypoxic respiratory [...] the visit to the emergency room at [facility] however due to no pulmonary transportation [facility] Patient tells me he [facility] [...] No recent travel. Chest CT angiogram at [facility] reported negative for PE, showed multifocal [...] No deformity. Skin: No rash. Slightly diaphoretic. ORGAN GRINDER: Alert and oriented x3, no focal deficits. [...] as the CT angiogram was done at [facility] and no disc was sent with records. We did call [facility] and requested chest CTA imaging. -Start high flow nasal cannula with flow rate 40 L/min and FiO2 60% -Titrate FiO2 as needed for target SPO2> 90% -Potential underlying chronic obstructive of pulmonary disease, treat with nebulized short acting bronchodilators, budesonide, and systemic corticosteroids (2) Hilar lymphadenopathy: Plan: -Per chest CTA report done at [facility], there is evidence of 2.6 cm right hilar lymph node compressing the right lower lobe bronchus leading to right lower lobe atelectasis . - Again, the CTA film is not available for my review at this time, this was requested from [facility]. However this is concerning for primary [...] signed by Kaylee Mclaughlin MD> 11/05/22 1245 [facility] Work Phone: [phone]) 143-268604-29-2023 Progress note Author Netta Wiseman [facility] November 05, 2022 9:09am Note Date/Time November 05, 2022 9:[address] [facility] [address] [place], [place] [address] Event Note Signed Patient: Lori Anton MR#: [id number] : 1965 Acct:[id number] Age/Sex: 57 / M Adm Date: 3 Loc: Room: [address] [place] [address] Type: ADM IN Attending Dr: Netta Wiseman MD Copies to: Shaista Corona, BONDING SUPERVISOR-C Netta Wiseman MD~ Event Date & Type [...] Suspect obstructive pneumonia. CT scan done at [facility] did not show any pulmonary embolism. Patient [...] far Documented By: Netta Wiseman MD 11/05/22 0905 Signed By: <Electronically signed by Netta Wsieman MD> 11/05/[address] [facility] Work Phone: 1(813) 408-346904-29-2023 History and physical note Author Derek Alex [facility] November 05, 2022 6:38am Note Date/Time November 05, 2022 4:[address] [facility] [address] [place] [address] Hospitalist H&P Signed with Addenda Patient: Lori Anton MR#: [id number] : 1965 Acct:[id number] Age/Sex: 57 / M Adm Date: 3 Loc: Room: [address] [place] [address] Type: ADM IN Attending Dr: Derek Alex MD Copies to: MD Shaista Bustamante, LIDA-C Annabel Boo, TENNIS CENTRE MANAGER~ ADDENDUM1 I personally saw this patient on the day of the encounter, reviewed the history,performed the borrego elements of the exam and formulated the plan of care and confirmed the nurse practitioners/residents/internet marketing intern written note. Addendum Documented By: Derek Alex MD 11/05/22 0637 Addendum Signed By: <Electronically signed by Derek Alex MD> 11/05/22 0637 HPI DATE OF EXAMINATION: 11/05/22 CHIEF COMPLAINT: fever, cough, right sided chest pain HISTORY OF PRESENT ILLNESS: Mr. Anton is a 57-year-old male with a PMH of HTN, arthritis that presented to the [facility] emergency room for fever, cough, and right- sided chest pain. Patient seen and evaluated upon transfer at bedside, at bedside. [facility] hospital work-up with a positive D-dimer 0.96, [...] the day decided to go to the [facility] emergency room and then hewas transferred [...] unless noted in the HPI or below. [facility] Attestation Statement: The following information was validated [...] 11/05/22 0359 Signed By: <Electronically signed by MARLO Boo> 11/05/22 0437 <Electronically signed by Derek Alex MD> 11/05/[address] [facility] Work Phone: 1(347) 601-438112-29-2022 Evaluation note* Encounter Date Diagnosis Assessment Notes [...] care provider if no improvement of symptoms. [facility] Other Evaluation note* Diagnosis Onset Date Resolution Status Acute hypoxemic respiratory failure acute Atelectasis acute Community acquired pneumonia acute Fever acute Hilar lymphadenopathy acute HTN (hypertension) acute Nicotine dependence acute Parainfluenza acute Tension pneumothorax acute [facility] Work Phone: Evaluation noteNo assessment information available [facility] Work Phone: Evaluation note* Diagnosis Benign prostatic hyperplasia with weak urinary stream- Primary Screening for prostate cancer Special screening for malignant neoplasm of prostate Tobacco user Tobacco use disorder BMI 25.0-25.9,adult Primary hypertension (CMS/HCC) Unspecified essential hypertension Bilateral chronic knee pain Acute pain of right shoulder Pain and swelling of left lower leg- Primary DDD (degenerative disc disease), lumbar Degeneration of lumbar or lumbosacral intervertebral disc DDD (degenerative disc disease), lumbar- Primary Degeneration of lumbar or lumbosacral intervertebral disc Primary hypertension (CMS/HCC) Unspecified essential hypertension BMI 25.0-25.9,adult Tobacco user Tobacco use disorder Anxiety Anxiety state, unspecified Spinal stenosis of lumbosacral region Anxiety disorder, unspecified Benign prostatic hyperplasia with weak urinary stream Essential (primary) hypertension (CMS/HCC) Unspecified essential hypertension Bilateral chronic knee pain Muscle spasms of both lower extremities Wellness examination- Primary Opioid abuse, uncomplicated (CMS/HCC) Chronic left hip pain Family history of premature CAD Family history of ischemic heart disease Tobacco user Tobacco use disorder BMI 25.0-25.9,adult Primary hypertension (CMS/HCC) Unspecified essential hypertension Anxiety Anxiety state, unspecified Essential (primary) hypertension (CMS/HCC) Unspecified essential hypertension Bilateral chronic knee pain Anxiety disorder, unspecified Muscle spasms of both lower extremities Benign prostatic hyperplasia with weak urinary stream Bilateral leg edema- Primary Edema Primary hypertension (CMS/HCC) Unspecified essential hypertension Benign prostatic hyperplasia with weak urinary stream Tobacco user Tobacco use disorder documented in this encounter [facility] N[facility]ative - Reported* Type Description Date Medical History htn Medical History arthritis Medical History anxiety [facility] Other Hospital Discharge instructionsAmbulatory Orders* Initiate Home [...] [facility] right [facility]: Hospital Discharge instructions Additional Instructions Avoid smoking Push fluids Rest Follow with your PCP Return here if any problems persist or worsen include chest pain, shortness of breath or any other concernSt. [facility] Work Phone: Summary Purpose Family [...] section and content) DATE CREATED AUTHOR 12/19/2018 [facility] DATE CREATED AUTHOR AUTHOR'S ORGANIZ ATION 11/11/2022 [facility] DATE CREATED AUTHOR AUTHOR'S ORGANIZ ATION 10/04/2023 [facility] DATE CREATED AUTHOR AUTHOR'S ORGANIZ ATION 04/26/2024 [facility] DATE CREATED AUTHOR AUTHOR'S ORGANIZ ATION 05/04/2024 [facility] EPIC REASON FOR VISIT (unrecogniz [...] Primary Care Provider Active Evi Gay APRN [facility] Attending Provider Active Team Status: Inactive Member Role Status Dates Shaista Corona Primary Care Provider Active Sta rt: July 31, 2023 End: July 31, 2023 Ej Garcia PA-C Emergency Provider Active Start: July 31, 2023 End: July 31, 2023 Mold Yard Crane Operator Relationship Specialty Start Date End Date Celestino Cooper MD [address] [place] [address] PCP - General Family Medicine 08/23/23 Shaista Corona NP [address] [place] [address] Referring Physician Nurse Practitioner 01/25/23 [employer] Yard Crane Operator Relationship Specialty Start Date End Date Celestino Cooper MD [address] [place] [phone] PCP - General Family Medicine 08/23/23 Shaista Corona NP [address] [place] [phone] Referring Physician Nurse Practitioner 01/25/23 [employer] Yard Crane Operator Relationship Specialty Start Date End Date Celestino Cooper MD [address] [place] [phone] PCP - General Family Medicine 08/23/23 Shaista Corona NP [address] [place] [phone] Referring Physician Nurse Practitioner 01/25/23 Goals (unrecognized section and content) Goals may [...] BE BASED ON THE PRIMARY CLINICAL RECORDS. Fever [facility]. provides no warranty or guarantee of the accuracy or completeness of information in this document.
[2024-05-23 07:40] LABS: BUN Creatinine Ratio 15.6; Calcium 8.2 mg/dL (8.5-10.1); Carbon Dioxide 29.4 mmol/L (21.0-32.0); Chloride 106 mmol/L (98-107); Estimated GFR (African America >60 (>=60 mL/min/1.73m^2); Estimated GFR (Non-African Ame >60 (>=60 mL/min/1.73m^2); Glucose 86 mg/dL (74-106); Potassium 3.4 mmol/L (3.5-5.1); Sodium 146 mmol/L (136-145)
== END 2024-05-23 07:18 | disposition home or self-care (01) ==
LOC: LAB 07:18
PROVIDERS: PCP Nurse Practitioner; Visit Provider Nurse Practitioner
DX: Z79.899 Other long term (current) drug therapy (principal)
CPT/HCPCS: 36415; 80048

== ENCOUNTER 2024-08-22 07:02 | Outpatient (OUT) | payer BC, SELFPAY ==
--- NOTE | 2024-08-22 | XR_ITS ---
The [address] [address] Patient Name: LORI GOMEZ MRN: [id number] date: 1965 Sex: M Assigned Patient Location: RAD Current Patient Location: RAD Accession/Order Number: [id number] Exam Date: 08/22/2024 07:35 Report Date: 08/22/2024 07:49 At the request of: GEOFFREY DOMÍNGUEZ Procedure: XR chest 2V EXAMINATION: XR chest 2V HISTORY: ACUTE COUGH R05.1 COMPARISON: XR chest 08/27/2022 FINDINGS: LUNGS: Small curvilinear stranding and mild patchy opacity within left lung base. VASCULATURE: No increased pulmonary vasculature. PLEURA: No pneumothorax, effusion, or pleural thickening. CARDIAC: No cardiomegaly or cardiac silhouette abnormality. MEDIASTINUM: No visible mass or adenopathy. BONES: No fracture or visible bone lesion. OTHER: Negative. XR/XR chest 2V IMPRESSION: 1. New mild left basilar infiltrates. Consider follow-up to document clearing. Electronically authenticated by: YOSELIN BHANDARI Date: 08/22/2024 07:49
--- OUTSIDE RECORDS SUMMARY | 2024-08-22 07:07 | XMS_ITS | CCD ---
Author Organization [facility] Care Team Providers Care Enterprise Applications Manager Name Role Phone Supriya Brown Unavailable CJ, RADHA SHAISTA Primary Care Unavailable MARKER ., DR KELLER Attending Unavailable MARKER ., DR KELLER Admitting Unavailable AICHTHERON, RADHA SHAISTA Primary Care Unavailable CHRISTINA STEVENS Consulting Unavailable JENIFER ., MERI Attending Unavailable JENIFER ., MERI Admitting Unavailable KAILA WOODSYINKA Consulting Unavailable CHERI . CATRACHITO Consulting Unavailable [facility] SHAISTA Primary Care Unavailable CHRISTINA STEVENS Attending Unavailable CHRISTINA STEVENS Admitting Unavailable LORI RODRIGUEZ Consulting Unavailable AICHHOLZ, [facility] SHAISTA Primary Care Unavailable MIKKI .VASILE Attending Unavailable MIKKI ., VASILE Consulting Unavailable MIKKI ., VASILE Admitting Unavailable LORI DOWNEY Consulting Unavailable CALVIN, MERI Consulting Unavailable Shaista Corona Primary Care Provider MD Derek Alex Admit Provider MD Sanjay Holt Other Provider MD Reginald Arroyo Other Provider MD Rubi Ramos Attending Provider MARLO Silva Emergency Provider MARLO Gay Attending Provider Ismael Huitron Unavailable Shaista Corona Primary Care Provider DARLINE Garcia Emergency Provider Ej Garcia Attending Unavailable Ej Garcia Admitting Unavailable Shaista Corona Primary Care Unavailable Aichholz, Shaista J Primary Care Unavailable Deidra, Evi Attending Unavailable Deidra, Evi Admitting Unavailable Sanjay Holt Consulting Unavailable Isai, Derek Admitting Unavailable Rubi Ramos Attending Unavailable Aichholz, Shaista J Primary Care Unavailable Reginald Arroyo Consulting Unavaila Lisha Herr Attending Unavailable Lisha Silva Admitting Unavailable Aichholz, Shaista J Primary Care Unavailable Aichholz HEAT TREAT TECHNICIAN, Shaista Unavailable Celestino Cooper MD Primary Care Provider AICHISIAHZ, SHAISTA Attending Unavailable AICHHOLZ, SHAISTA Attending Unavailable AICHHOLZ, SHAISTA Attending Unavailable AICHHOLZ, SHAISTA Attending Unavailable AICHHOLZ, SHAISTA Attending Unavailable AICHHOLZ, SHAISTA Attending Unavailable AICHHOLZ, SHAISTA Attending Unavailable Gregg PATTEN Attending Unavailable Gregg PATTEN Attending Unavailable Sagar Orta Attending Unavailable Allergies Allergy Classification Reported Allergen(s) Allergy Type Date of Onset Reaction(s) Facility (1 source) Azithromycin Drug Allergy Unknown [employer] Other (3 sources) Penicillin; Translations: [penicillin] Drug Allergy Unknown [facility] Repository (1 source) Azithromycin Drug Allergy [facility] (5 sources) Erythromycin Drug Allergy 3 Rash [facility] (1 source) E.E.S. Drug allergy (disorder) 3 [facility] (20 sources) Penicillins; Translations: [Penicillins] Allergy to substance 3 [facility] (20 sources) Erythromycin Drug Allergy 4 rash, Unknown [facility] (1 source) erythromycin base Drug allergy (disorder) 4 [facility] Repository Medications Current Medications Medication Drug Class(es) Dates Sig (Normalized) Sig (Original) [id number] 200 actuat albuterol 0.09 mg/actuat metered dose inhaler (2 sources) beta2-Adrenergic Agonist Start: 07-07-2022 take 2 puff(s) by inhalation every four hours as needed Albuterol Sulfate HFA 108 (90 Base) MCG/ACT 2 puffs as needed Inhalation every 4 hrs Jun, Active amLODIPine 10 mg oral tablet (20 sources) Dihydropyridine Calcium Channel Sarika Start: 12-07-2023 End: 10-16-2024 take 1 tablet by mouth once daily amLODIPine (Norvasc) 10 MG tablet Indications: Primary hypertension (CMS/HCC) , Essential (primary) hypertension (CMS/HCC) Take 1 tablet (10 mg) by mouth Daily 90 tablet 1 07/18/2024 10/16/2024 Active Start: 11-05-2022 take 10 mg by mouth once daily Amlodipine Active 10 MG PO Daily November 04, 2022 11:00pm amLODIPine Besyl ate Active buprenorphine 8 mg / naloxone 2 mg sublingual film (20 sources) Partial Opioid Agonist, Opioid Antagonist Start: [...] HCl Active carvedilol 25 mg oral tablet (20 sources) alpha-Adrenergic Sarika, beta-Adrenergic Sarika Start: End: take 1 tablet by mouth in the morning carvedilol (Coreg) 25 MG tablet Indications: Primary hypertension (CMS/HCC) Take 1 tablet (25 mg) by mouth in the morning and 1 tablet (25 mg) before bedtime. 180 tablet 1 07/18/2024 10/16/2024 Active Start: 11-05-2022 End: 11-21-2022 take 25 mg by mouth twice daily Carvedilol Active 25 M G PO Twice daily 60 November 21, 2022 10:50am Carvedilol Activ e dextromethorphan hydrobromide 3 mg/ml / promethazine hydrochloride 1.25 mg/ml oral solution (1 source) Phenothiazine, Uncompetitive R-mwxlvz-Z-aspartate Receptor Antagonist, Sigma-1 Agonist Start: 07-31-2023 take 1 mL by mouth every six hours Promethazine-Dm Active 5 ML PO Q6H 118 July 31, 2023 12:00am diclofenac sodium 50 mg delayed release oral tablet (20 sources) Nonsteroidal Anti-inflammatory Drug Start: 06-20-2024 take 1 tablet by mouth in the morning, then take 1 tablet by mouth in the evening, then take 1 tablet by mouth at bedtime diclofenac (Voltaren) 50 MG EC tablet Take 50 mg by mouth in the morning and 50 mg in the evening and 50 mg before bedtime. 06/20/2024 Active Start: 12-07-2023 End: 05-29-2024 take 1 tablet by mouth [...] Jun, Active FLUoxetine 20 mg oral capsule (20 sources) Serotonin Reuptake Inhibitor Start: 12-07-2023 End: 08-18-2024 take 3 capsules by mouth once daily FLUoxetine (PROzac) 20 MG capsule Indications: Anxiety , Anxiety disorder, unspecified TAKE 3 CAPSULES BY MOUTH ONCE DAILY 270 capsule 1 08/18/2024 Active Start: 11-05-2022 take 20 mg by mouth once daily Fluoxetine Active 20 MG PO Daily November 04, 2022 11:00pm Start: 11-05-2022 take 40 mg by mouth at bedtime Fluoxetine Active 40 MG PO Bedtime November 04, 2022 11:00pm Fluoxetine Activ e furosemide 20 mg oral tablet (20 sources) Loop Diuretic Start: 05-02-2024 End: 08-17-2024 take 1 tablet by mouth once daily as needed furosemide (Lasix) 20 MG tablet Indications: Bilateral leg edema Take 1 tablet (20 mg) by mouth Daily as needed (swelling in legs) If take this pill, take a potassium 30 tablet 1 07/18/2024 Active lisinopril 40 mg oral tablet (20 sources) Angiotensin Converting Enzyme Inhibitor Start: 12-07-2023 End: 10-16-2024 take 1 tablet by mouth once daily lisinopril 40 MG tablet Indications: Primary hypertension (CMS/HCC) Take 1 tablet (40 mg) by mouth Daily 90 tablet 1 07/18/2024 10/16/2024 Active Start: 11-21-2022 take 20 mg by [...] capsule Active 75 MG PO Twice daily 04 13July 31, 2023 12:00am potassium chloride 10 meq extended release oral capsule (11 sources) Start: 05-23-2024 End: 07-10-2025 take 1 capsule by mouth once daily at mealtime as needed potassium chloride ER (Micro-K) 10 MEQ ER capsule Indications: On potassium wasting diuretic therapy Take 1 capsule (10 mEq) by mouth Daily as needed (when taking water pill dose) Take with food Do not crush or chew. 30 capsule 1 07/18/2024 08/17/2024 Active pramipexole dihydrochloride 0.5 mg oral tablet (20 sources) Nonergot Dopamine Agonist Start: 12-07-2023 End: 05-29-2024 pramipexole (Mirapex) 0.5 MG tablet Indications: Muscle spasms of both lower extremities Take 1 tablet (0.5 mg) by mouth as needed at bedtime (RLS) 90 tablet 1 02/29/2024 Active tadalafil 5 mg oral tablet (6 sources) Phosphodiesterase 5 Inhibitor Start: 07-24-2024 End: 09-20-2024 take 1 tablet by mouth once daily tadalafil (Cialis) 5 MG tablet Indications: Benign prostatic hyperplasia with weak urinary stream Take 1 tablet (5 mg) by mouth Daily 30 tablet 2 08/21/2024 09/20/2024 Active tamsulosin hydrochloride 0.4 mg oral capsule (17 sources) alpha-Adrenergic Sarika Start: 06-24-2024 End: 08-21-2024 take 1 capsule by mouth once daily tamsulosin (Flomax) 0.4 MG 24 hr capsule Take 0.4 mg by mouth Daily 06/24/2024 08/21/2024 Discontinued (Therapy completed) Start: 12-07-2023 End: 05-29-2024 take 1 capsule by mouth every twenty-four hours at bedtime tamsulosin (Flomax) 0.4 MG 24 hr capsule Indications: Benign prostatic hyperplasia with weak urinary stream Take 1 capsule (0.4 mg) by mouth at bedtime 90 capsule 1 02/29/2024 05/29/2024 Active tiZANidine 4 mg oral tablet (20 sources) Central alpha-2 Adrenergic Agonist Start: 08-18-2024 End: 11-16-2024 tiZANidine (Zanaflex) 4 MG tablet Indications: Muscle spasms of both lower extremities Take 2 tablets (8 mg) by mouth every 12 (twelve) hours if needed for muscle spasms 360 tablet 1 08/18/2024 11/16/2024 Active Start: 12-07-2023 End: 05-29-2024 tiZANidine (Zanaflex) 4 MG t ablet Indications: Muscle spasms of both lower extremities Take 2 tablets (8 mg) by mouth every 12 (twelve) hours if needed for muscle spasms 360 tablet 1 02/29/2024 Active Start: 11-16-2022 take 8 mg by [...] Linezolid Discontinued 600 MG PO Twice daily 20 01November 20, 2022 11:00pm July 31, 2023 7:39pm Problems Active Problems Problem Classification Problem Date Documented Date Episodic/Chronic Anxiety disorders (20 sources) Anxiety disorder, unspecified; Translations: [Anxiety] Onset: 08-29-2022 08-30-2023 Chronic Chronic obstructive pulmonary disease and bronchiectasis (1 source) Chronic obstructive pulmonary disease, unspecified; Translations: [COPD UNSPECIFIED] Onset: 08-29-2022 Chronic Chronic obstructive pulmonary disease and bronchiectasis (1 source) Bronchitis, not specified as acute or chronic Episodic Essential hypertension (20 sources) Hypertensive disorder; Translations: [Essential (primary) hypertension] Onset: 11-05-2022 11-05-2022 Chronic Hyperplasia of prostate (20 sources) Benign prostatic hyperplasia without lower urinary tract symptoms; Translations: [Weak urinary stream due to benign prostatic hypertrophy] Onset: 08-29-2022 08-30-2023 Chronic Immunizations and screening for infectious disease (16 sources) Contact with and (suspected) exposure to other viral communicable diseases; Translations: [Needs influenza immunization] Onset: 05-23-2024 Episodic Influenza (1 source) Influenza due to Influenza A virus; Translations: [Influenza due to other identified influenza virus with other respiratory manifestations] 07-31-2023 Episodic Osteoarthritis (20 sources) Bilateral primary osteoarthritis of knee; Translations: [Arthritis] Onset: 03-16-2022 11-05-2022 Chronic Other aftercare (1 source) Other detention (current) drug therapy; Translations: [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 THERAPY] Onset: 08-29-2022 Episodic Other lower respiratory disease (1 source) Personal history of other diseases of the respiratory system Episodic Other lower respiratory disease (2 sources) Cough; Translations: [Acute cough] Onset: 08-21-2024 08-21-2024 Episodic Other nervous system disorders (20 sources) Chronic pain; Translations: [Other chronic pain] Onset: 08-30-2023 08-30-2023 Chronic Other upper respiratory infections (1 source) Acute [...] Spondylosis; intervertebral disc disorders; other back problems (20 sources) Degeneration of lumbar intervertebral disc; Translations: [...] Translations: [Fever, unspecified] Onset: 11-05-2022 11-10-2022 Episodic Genitourinary symptoms and ill-defined conditions (13 sources) Asymptomatic microscopic hematuria; Translations: [Asymptomatic microscopic hematuria] Onset: 05-03-2024 05-03-2024 Episodic Lymphadenitis (20 sources) Hilar lymphadenopathy ; Translations: [Localized enlarged lymph nodes] Onset: 11-05-2022 Resolved: 08-30-2023 11-05-2022 Episodic Malaise and fatigue (20 sources) Fatigue; Translations: [Other fatigue] Onset: 08-30-2023 08-30-2023 Episodic Other aftercare (18 sources) Drug therapy finding; Translations: [Other termite treater helper (current) drug therapy] Onset: 05-03-2024 05-03-2024 Episodic Other connective tissue disease (4 sources) Pain in left leg; Translations: [PAIN IN LEFT LEG] Onset: 03-12-2022 Episodic Other connective tissue disease (20 sources) Spasm; Translations: [Other muscle spasm] Onset: 08-30-2023 08-30-2023 Episodic Other connective tissue disease (20 sources) Pain in bilateral legs; Translations: [Pain in right leg] Onset: 08-30-2023 08-30-2023 Episodic Other connective tissue disease (20 sources) Pain of left lower leg; Translations: [Pain in left lower leg] Onset: 10-31-2023 10-31-2023 Episodic Other ear and sense organ disorders (20 sources) Bilateral tinnitus; Translations: [Tinnitus, bilateral] Onset: 08-30-2023 08-30-2023 Episodic Other non-traumatic joint disorders (20 sources) Pain in right knee; Translations: [Pain in joint, lower leg] Onset: 08-30-2023 08-30-2023 Episodic Other non-traumatic joint disorders (20 sources) Pain in right shoulder; Translations: [Pain in joint, shoulder region] Onset: 08-30-2023 08-30-2023 Episodic Other non-traumatic joint disorders (20 sources) Hip pain; Translations: [Pain in left hip] Onset: 02-29-2024 02-29-2024 Episodic Other nutritional; endocrine; and metabolic disorders (20 sources) Overweight in adulthood with body mass index of 25 or more but less than 30; Translations: [Body mass index (BMI) 25.0-25.9, adult] Onset: 08-30-2023 08-30-2023 Episodic Other screening for suspected conditions (not mental disorders or infectious disease) (20 sources) Patient encounter status; Translations: [Encounter for screening for malignant neoplasm of prostate] Onset: 08-30-2023 08-30-2023 Episodic Pleurisy; pneumothorax; pulmonary collapse (20 sources) Tension pneumothorax; Translations: [Spontaneous tension pneumothorax] Onset: 11-05-2022 Resolved: 08-30-2023 11-08-2022 Episodic Pneumonia (except that caused by tuberculosis or sexually transmitted disease) (20 sources) Community acquired pneumonia; Translations: [Pneumonia, unspecified organism] Onset: 12-26-2022 Resolved: 08-30-2023 11-05-2022 Episodic Residual codes; unclassified (20 sources) Tobacco user; Translations: [Tobacco use] Onset: 08-30-2023 08-30-2023 Episodic Residual codes; unclassified (20 sources) FH: premature coronary heart disease; Translations: [Family history of ischemic heart disease and other diseases of the circulatory system] Onset: 08-30-2023 02-29-2024 Episodic Residual codes; unclassified (20 sources) Bilateral lower limb edema; Translations: [Localized edema] Onset: 05-02-2024 05-02-2024 Episodic Residual codes; unclassified (1 source) Family history of coronary arteriosclerosis; Translations: [Family history of ischemic heart disease and other diseases of the circulatory system] Onset: 08-30-2023 08-30-2023 Episodic Respiratory failure; insufficiency; arrest (adult) (8 sources) Acute hypoxemic respiratory failure; Translations: [Acute respiratory failure with hypoxia] Onset: 11-05-2022 11-05-2022 Episodic Spondylosis; intervertebral disc disorders; other back problems (20 sources) Backache; Translations: [Dorsalgia, unspecified] Onset: 08-30-2023 12-08-2022 Episodic Unclassified (1 source) COUGH, UNSPECIFIED; Translations: [COUGH, UNSPECIFIED] Onset: 08-27-2022 Viral infection (8 sources) Parainfluenza; Translations: [Other viral infections of unspecified site] Onset: 11-05-2022 11-06-2022 Episodic Viral infection (1 source) COVID-19 Results Test Name Value Interpretation Reference Range Facility ALL BASIC METABOLIC PANELon 05-23-2024 Anion gap [Moles/Vol] 14 mmol/L [facility] Calcium [Mass/Vol] 8.2 mg/dL Low 8.5 - 10. 1 mg/dL [facility] Chloride [Moles/Vol] 106 mmol/L 98 - 10 7 mmol/L [facility] CO2 [Moles/Vol] 29.4 mmol/L 21.0 - 32.0 mmol/L [facility] Creatinine [Mass/Vol] 0.77 mg/dL 0.70 - 1.30 mg/dL [facility] GFR/1.73 sq M.predicted CKD-EPI (S/P/Bld) [Vol rate/Area] >60 >=60 mL/min/1.7 3m 2 [facility] Glucose [Mass/Vol] 86 mg/dL 74 - 106 mg/dL [facility] Interpretation and review of laboratory results Abnormal [facility] Potassium [Moles/Vol] 3.4 mmol/L Low 3.5 - 5.1 mmol/L [facility] Sodium [Moles/Vol] 146 mmol/L High 136 - 145 mmol/L [facility] TBH EGFR-NON AF FINNISH >60 >=60 mL/min/1.7 3m 2 [facility] Urea nitrogen [Mass/Vol] 12 mg/dL 7.0 - 18.0 mg/dL [facility] Urea nitrogen/Creatinine [Mass ratio] 15.6 mg/mg [facility] ALL CBC WITH AUTO DIFFon BASOPHILS ABSOLUTE AUTO 0.1 [facility] Basophils/100 WBC (Bld) 1.1 % 0.2 - 2.0 % [facility] Eosinophils/100 WBC (Bld) 6.9 % 0.9 - 7.0 % [facility] Erythrocyte distribution width (RBC) [Ratio] 13 % 11.0 - 15.0 % [facility] Hematocrit (Bld) [Volume fraction] 39.5 % Low 42.0 - 54.0 % [facility] Hemoglobin (Bld) [Mass/Vol] 13 g/dL Low 14.0 - 18.0 g/dL [facility] IMMATURE GRANULOCYTES ABS AUTO 0.01 [facility] Immature granulocytes/100 WBC (Bld) 0.1 % 0.0 - 0.5 % [facility] Interpretation and review of laboratory results Abnormal [facility] LYMPHOCYTES ABSOLUTE AUTO 3.4 [facility] Lymphocytes/100 WBC (Bld) 43.6 % 20.5 - 60.0 % [facility] MCH (RBC) [Entitic mass] 30.4 pg 25.9 - 34.0 pg [facility] MCHC (RBC) [Mass/Vol] 32.9 g/dL 29.9 - 35.2 g/dL [facility] MCV (RBC) [Entitic vol] 92.3 fL 80.0 - 94.0 fL [facility] MONOCYTES ABSOLUTE AUTO 0.7 [facility] Monocytes/100 WBC (Bld) 8.7 % 1.7 - 12.0 % [facility] NEUTROPHILS ABSOLUTE AUTO 3.1 [facility] Neutrophils/100 WBC (Bld) 39.6 % Low 43.0 - 75.0 % [facility] Platelet mean volume (Bld) [Entitic vol] 9.7 fL 9.5 - 13.5 fL [facility] TBH EO # 0.5 [facility] TB PLT 289 [facility] RBC 4.28 Low [facility] WBC 7.8 [facility] In office Testingon 12-01-19 24 In office Testing [id number] [facility] Registrationon 11-30-2023 Registration [id number]#1.00TIFF Normal [facility] COVID CepheidOrdered By: Aamir giorgi Garcia on 07-31-2023 SARS-CoV-2 (COVID-19) Ab IA Ql Negative Negative [facility] Comment on above: This is a duplicate Cepheid Xpert Xpress CoV-2/Flu/RSV Plus RNA by RT-PCR result to be used for statistical tracking purpose only. SARS-CoV-2 (COVID-19) RNA ROWENA+probe Ql (Unsp spec) [facility] COVID-19 / Flu A/B / RSV PCR on 07-31-2023 SARS-CoV-2 (COVID-19) RNA ROWENA+probe Ql (Unsp spec) Normal [facility] Comment on above: Performed By: #### C OVID19 FLU RSV, CEPHEID NEG ####[facility] [id number] [place] [address] [facility] Cepheid COVID PCR Negativeon 07-31-2023 SARS-CoV-2 (COVID-19) RNA ROWENA+probe Ql (Unsp spec) Negative Normal Negative [facility] Comment on above: Result Comment: This is a duplicate CepStem CentRxid Xpert Xpress CoV-2/Flu/RSV Plus RNA by RT-PCR result to be used for statistical tracking purpose only.PERFORMED BY:[place] [id number] [place], [place] [id number] MEDICAL DIRECTORNATI LAUREN M.D. Performed By: #### C OVID19 FLU RSV, CEPHEID NEG ####[id number] [place] [address] [facility] XR chest 2V*on 12-26-2022 XR chest 2V* Normal [facility] Activated partial thrombopla stin time (aPTT) in platelet poor plasma by coagulation aOrdered By: Lisha Silva on 12-08-2022 aPTT Coag (PPP) [Time] 23.5 s 25.1-36.5 [facility] Automated erythrocytes count in urine sediment (number/area)Ordered By: Lisha Silva on 12-08-2022 RBC Auto (Urine sed) [#/Area] 1-2 [HPF] 0-4 [facility] Automated leukocytes count i n urine sediment (number/area)Ordered By: Lisha Silva on 12-08-2022 WBC Auto (Urine sed) [#/Area] None seen [HPF] 0-4 [facility] B-Type Natriuretic Peptideon 12-08-2022 Natriuretic peptide B (Bld) [Mass/Vol] 22.0 pg/mL Normal 5-100 [facility] Comment on above: Result Comment: PERF ORMED BY:[place] [id number] [place], [place] [id number] MEDICAL DIRECTORNATI LAUREN M.D. Performed By: #### H S TROP, CBC, BMP, BNP, DDIMER, PT, PTT ####[facility] [id number] [place] [address] [facility] Basic Metabolic Panelon Anion gap [Moles/Vol] 10.9 mmol/L Normal 6.0-15.0 [facility] Comment on above: Performed By: #### H S TROP, CBC, BMP, BNP, DDIMER, PT, PTT ####[address] [address] [facility] Calcium [Mass/Vol] 8.6 mg/dL Normal 8.6-10.3 [facility] Comment on above: Performed By: #### H S TROP, CBC, BMP, BNP, DDIMER, PT, PTT ####[place] [id number] [facility] Chloride [Moles/Vol] 105 mmol/L Normal 98-107 [facility] Comment on above: Performed By: #### H S TROP, CBC, BMP, BNP, DDIMER, PT, PTT ####[place] [id number] [facility] CO2 [Moles/Vol] 28.0 mmol/L Normal 21.0-31.0 [facility] Comment on above: Performed By: #### H S TROP, CBC, BMP, BNP, DDIMER, PT, PTT ####[place] [id number] [facility] Creatinine [Mass/Vol] 0.53 mg/dL Low 0.70-1.30 [facility] Comment on above: Performed By: #### H S TROP, CBC, BMP, BNP, DDIMER, PT, PTT ####[place] [id number] [facility] Creatinine Clr Calc Pharmacy 188.[address] [facility] Comment on above: Result Comment: PERF ORMED BY:[address] [place], [place] [id number] MEDICAL ALEKSANDAR LAUREN M.D. Performed By: #### H S TROP, CBC, BMP, BNP, DDIMER, PT, PTT ####[place] [id number] [facility] GFR/1.73 sq M.predicted MDRD (S/P/Bld) [Vol rate/Area] mL/min/{1.73_m2} [facility] Comment on above: Performed By: #### H S TROP, CBC, BMP, BNP, DDIMER, PT, PTT ####[place] [id number] Glucose [Mass/Vol] 99 mg/dL Normal 70-100 [facility] Comment on above: Result Comment: [place] Glucose Reference Range is dependent on time and content of last meal. Glucose of more than 200 mg/dL in a nonstressed, ambulatory subject supports the diagnosis of Diabetes Mellitus. ADA recommended reference range Performed By: #### H S TROP, CBC, BMP, BNP, DDIMER, PT, PTT ####[address] Potassium [Moles/Vol] 3.9 mmol/L Normal 3.5-5.1 [facility] Comment on above: Performed By: #### H S TROP, CBC, BMP, BNP, DDIMER, PT, PTT ####[address] Sodium [Moles/Vol] 140 mmol/L Normal 136-145 [facility] Comment on above: Performed By: #### H S TROP, CBC, BMP, BNP, DDIMER, PT, PTT ####[address] Urea nitrogen [Mass/Vol] 11 mg/dL Normal 7-25 [facility] Comment on above: Performed By: #### H S TROP, CBC, BMP, BNP, DDIMER, PT, PTT ####[address] Basophils Auto (Bld) [#/Vol] Ordered By: Lisha Silva on 12-08-2022 Basophils (Bld) [#/Vol] 0.2 10*3/uL 0.0-0.2 [facility] Basophils/100 WBC Auto (Bld) Ordered By: Lisha Silva on 12-08-2022 Basophils/100 WBC (Bld) 2.6 % . [facility] Bilirubin Test strip Ql (U)O rdered By: Lisha Silva on 12-08-2022 Bilirubin Ql (U) Negative Negative [facility] CT angio chest PE protocolon 12-08-2022 CT angio chest PE protocol Normal [facility] Calcium [Mass/volume] in Ser um or PlasmaOrdered By: Lisha Silva on 12-08-2022 Calcium [Mass/Vol] 8.6 mg/dL 8.6-10.3 [facility] Carbon dioxide, total [Moles /volume] in Serum or PlasmaOrdered By: Lisha Silva on 12-08-2022 CO2 [Moles/Vol] 28.0 mmol/L 21.0-31.0 [facility] Chloride [Moles/volume] in S thang or PlasmaOrdered By: Lisha Silva on 12-08-2022 Chloride [Moles/Vol] 105 mmol/L 98-107 [facility] Color Auto (U)Ordered By: Co pushpa Silva on 12-08-2022 Color (U) Yellow Yellow [facility] Complete Blood Count Auto Di ffon 12-08-2022 Basophils (Bld) [#/Vol] 0.2 10*3/uL Normal 0.0-0.2 [facility] Comment on above: Result Comment: PERF ORMED BY:[address] [place], [place] [phone] MEDICAL DIRECTORNATI LAUREN M.D. Performed By: #### H S TROP, CBC, BMP, BNP, DDIMER, PT, PTT ####[facility] [place] [address] [facility] Basophils/100 WBC (Bld) 2.6 % Normal . [facility] Comment on above: Performed By: #### H S TROP, CBC, BMP, BNP, DDIMER, PT, PTT ####[facility] [place] [address] [facility] Eosinophils (Bld) [#/Vol] 0.3 10*3/uL Normal 0.0-0.45 [facility] Comment on above: Performed By: #### H S TROP, CBC, BMP, BNP, DDIMER, PT, PTT ####[address] Eosinophils/100 WBC (Bld) 3.8 % Normal . [facility] Comment on above: Performed By: #### H S TROP, CBC, BMP, BNP, DDIMER, PT, PTT ####[address] Erythrocyte distribution width (RBC) [Ratio] 14.8 % Normal 12.0-14.8 [facility] Comment on above: Performed By: #### H S TROP, CBC, BMP, BNP, DDIMER, PT, PTT ####[address] Hematocrit (Bld) [Volume fraction] 35.8 % Low 38.8-50.0 [facility] Comment on above: Performed By: #### H S TROP, CBC, BMP, BNP, DDIMER, PT, PTT ####[address] Hemoglobin (Bld) [Mass/Vol] 12.0 g/dL Low 13.0-17.0 [facility] Comment on above: Performed By: #### H S TROP, CBC, BMP, BNP, DDIMER, PT, PTT ####[address] Lymphocytes (Bld) [#/Vol] 3.7 10*3/uL Normal 1.00-4.8 [facility] Comment on above: Performed By: #### H S TROP, CBC, BMP, BNP, DDIMER, PT, PTT ####[address] Lymphocytes/100 WBC (Bld) 48.0 % Normal . [facility] Comment on above: Performed By: #### H S TROP, CBC, BMP, BNP, DDIMER, PT, PTT ####[address] MCH (RBC) [Entitic mass] 30.4 pg Normal 27.5-35.2 [facility] Comment on above: Performed By: #### H S TROP, CBC, BMP, BNP, DDIMER, PT, PTT ####[address] MCV (RBC) [Entitic vol] 90.4 fL Normal 83.5-101 [facility] Comment on above: Performed By: #### H S TROP, CBC, BMP, BNP, DDIMER, PT, PTT ####[address] Mean Corpuscular HGB Conc 33.6 g/dL Normal 32.5-35.6 [facility] Comment on above: Performed By: #### H S TROP, CBC, BMP, BNP, DDIMER, PT, PTT ####[address] Monocytes (Bld) [#/Vol] 0.7 10*3/uL Normal 0.0-0.8 [facility] Comment on above: Performed By: #### H S TROP, CBC, BMP, BNP, DDIMER, PT, PTT ####[address] Monocytes/100 WBC (Bld) 21.84 % High 0.00-20.00 [facility] Comment on above: Result Comment: For adults in ED, MDW > 20.0 may be associated with a higher risk of sepsis during the first 12 hrs of hospital admission Performed By: #### H S TROP, CBC, BMP, BNP, DDIMER, PT, PTT ####[address] Monocytes/100 WBC (Bld) 9.6 % Normal . [facility] Comment on above: Performed By: #### H S TROP, CBC, BMP, BNP, DDIMER, PT, PTT ####[address] Neutrophils (Bld) [#/Vol] 2.7 10*3/uL Normal 1.8-7.7 [facility] Comment on above: Performed By: #### H S TROP, CBC, BMP, BNP, DDIMER, PT, PTT ####[address] Neutrophils/100 WBC (Bld) 36.0 % Normal . [facility] Comment on above: Performed By: #### H S TROP, CBC, BMP, BNP, DDIMER, PT, PTT ####[address] NRBC% 0.1 /100{WBC} Normal 0-0.5 [facility] Comment on above: Performed By: #### H S TROP, CBC, BMP, BNP, DDIMER, PT, PTT ####[address] Platelet mean volume (Bld) [Entitic vol] 7.6 fL Normal 6.6-10.1 [facility] Comment on above: Performed By: #### H S TROP, CBC, BMP, BNP, DDIMER, PT, PTT ####[address] Platelets (Bld) [#/Vol] 299 10*3/uL Normal 150-450 [facility] Comment on above: Performed By: #### H S TROP, CBC, BMP, BNP, DDIMER, PT, PTT ####[address] RBC (Bld) [#/Vol] 3.96 10*6/uL Normal 3.90-5.60 [facility] Comment on above: Performed By: #### H S TROP, CBC, BMP, BNP, DDIMER, PT, PTT ####[address] WBC (Bld) [#/Vol] 7.6 10*3/uL Normal 4.1-10.5 [facility] Comment on above: Performed By: #### H S TROP, CBC, BMP, BNP, DDIMER, PT, PTT ####[place] [id number] [facility] Creatinine [Mass/volume] in Serum or PlasmaOrdered By: Lisha Silva on 12-08-2022 Creatinine [Mass/Vol] 0.53 mg/dL 0.70-1.30 [facility] D-Dimer High Sensitivityon 0 12-08-2022 D-Dimer High Sensitivity 435 ng/mL High 0-243 [facility] Comment on above: Result Comment: The [...] in hospitalized patients due to co-morbid conditions.PERFORMED BY:[address] [place], [place] [phone] MEDICAL ALEKSANDAR LAUREN M.D. Performed By: #### H S TROP, CBC, BMP, BNP, DDIMER, PT, PTT ####[address] [address] [place] Dipstick and Microscopicon 0 12-08-2022 Appearance (U) Clear Normal Clear [facility] Comment on above: Order Comment: Name Collection Type:: Clean-Voided Midstream Performed By: #### A DDONUAPLUS ####[address] [address] [place] Bacteria,Urine None Seen Normal None Seen [facility] Comment on above: Order Comment: Name Collection Type:: Clean-Voided Midstream Performed By: #### A DDONUAPLUS ####[address] [address] [place] Bilirubin,Urine Negative Normal Negative [facility] Comment on above: Order Comment: Name Collection Type:: Clean-Voided Midstream Performed By: #### A DDONUAPLUS ####[address] [address] [place] Color (U) Yellow Normal Yellow [facility] Comment on above: Order Comment: Name Collection Type:: Clean-Voided Midstream Performed By: #### A DDONUAPLUS ####[address] [address] [facility] Glucose Ql (U) Normal Normal Normal [facility] Comment on above: Order Comment: Name Collection Type:: Clean-Voided Midstream Performed By: #### A DDONUAPLUS ####[address] [address] [facility] Hyaline Casts,Urine 0-8 Normal 0-8 [facility] Comment on above: Order Comment: Name Collection Type:: Clean-Voided Midstream Result Comment: PERF ORMED BY:[address] [place], [place] [id number] MEDICAL ALEKSANDAR LAUREN M.D. Performed By: #### A DDONUAPLUS ####[address] [address] [facility] Ketones Ql (U) Negative Normal Negative [facility] Comment on above: Order Comment: Name Collection Type:: Clean-Voided Midstream Performed By: #### A DDONUAPLUS ####[address] [address] [facility] Leukocyte esterase Test strip Ql (U) Negative Normal Negative [facility] Comment on above: Order Comment: Name Collection Type:: Clean-Voided Midstream Performed By: #### A DDONUAPLUS ####[address] [address] [facility] Nitrite,Urine Negative Normal Negative [facility] Comment on above: Order Comment: Name Collection Type:: Clean-Voided Midstream Performed By: #### A DDONUAPLUS ####[address] [address] [facility] Occult Blood,Urine Trace High Negative [facility] Comment on above: Order Comment: Name Collection Type:: Clean-Voided Midstream Result Comment: PERF ORMED BY:[place] [address] [place], [place] [phone] MEDICAL ALEKSANDAR LAUREN M.D. Performed By: #### A DDONUAPLUS ####[address] [address] [facility] pH (U) 6.5 [pH] Normal 5.0-9.0 [facility] Comment on above: Order Comment: Name Collection Type:: Clean-Voided Midstream Performed By: #### A DDONUAPLUS ####[place] [id number] [facility] Protein,Urine Negative Normal Negative [facility] Comment on above: Order Comment: Name Collection Type:: Clean-Voided Midstream Performed By: #### A DDONUAPLUS ####[address] RBC,Urine 1-2 Normal 0-4 [facility] Comment on above: Order Comment: Name Collection Type:: Clean-Voided Midstream Performed By: #### A DDONUAPLUS ####[address] Specificy [place],Urine 1.040 High 1.001-1.03 0 [facility] Comment on above: Order Comment: Name Collection Type:: Clean-Voided Midstream Performed By: #### A DDONUAPLUS ####[address] Squamous Epithelial Cell,Urine None Seen Normal 0-2 [facility] Comment on above: Order Comment: Name Collection Type:: Clean-Voided Midstream Performed By: #### A DDONUAPLUS ####[address] Urobilinogen,Urine Normal Normal Normal [facility] Comment on above: Order Comment: Name Collection Type:: Clean-Voided Midstream Performed By: #### A DDONUAPLUS ####[address] WBC,Urine None Seen Normal 0-4 [facility] Comment on above: Order Comment: Name Collection Type:: Clean-Voided Midstream Performed By: #### A DDONUAPLUS ####[address] [place] [address] [facility] ECG 12 lead ECGon 12-08-2022 ECG 12 lead ECG Normal [facility] Eosinophils Auto (Bld) [#/Vo l]Ordered By: Lisha Silva on 12-08-2022 Eosinophils (Bld) [#/Vol] 0.3 10*3/uL 0.0-0.45 [facility] Eosinophils/100 WBC Auto (Bl d)Ordered By: Lisha Silva on 12-08-2022 Eosinophils/100 WBC (Bld) 3.8 % . [facility] Erythrocyte distribution wid th Auto (RBC) [Ratio]Ordered By: Lisha Silva on 12-08-2022 Erythrocyte distribution width (RBC) [Ratio] 14.8 % 12.0-14.8 [facility] Glucose [Mass/volume] in Ser um or PlasmaOrdered By: Lisha Silva on 12-08-2022 Glucose [Mass/Vol] 99 mg/dL 70-100 [facility] Comment on above: ADA recommended refe rence rangeRandom Glucose Reference Range is dependent on time and content of last meal. Glucose of more than 200 mg/dL in a nonstressed, ambulatory subject supports the diagnosis of Diabetes Mellitus. Hematocrit Auto (Bld) [Volum e fraction]Ordered By: Lisha Silva on 12-08-2022 Hematocrit (Bld) [Volume fraction] 35.8 % 38.8-50.0 [facility] Hemoglobin [Mass/volume] in BloodOrdered By: Lisha Silva on 12-08-2022 Hemoglobin (Bld) [Mass/Vol] 12.0 g/dL 13.0-17.0 [facility] Ketones Auto test strip (U) [Mass/Vol]Ordered By: Lisha Silva on 12-08-2022 Ketones (U) [Mass/Vol] Negative Negative Fi [facility] Laboratory - CoagulationOrde red By: Lisha Silva on 12-08-2022 PT Coag (PPP) [Time] 12.6 s 9.0-12.9 [facility] Laboratory - UrinalysisOrder ed By: Lisha Silva on 12-08-2022 Hyaline casts LM Ql (Urine sed) 0-8 [LPF] 0-8 [facility] Leukocytes [#/volume] correc wiliam for nucleated erythrocytes in Blood by Automated counOrdered By: Lisha Silva on 12-08-2022 WBC corrected for nucl RBC Auto (Bld) [#/Vol] 7.6 10*3/uL 4.1-10.5 [facility] Lymphocytes Auto (Bld) [#/Vo l]Ordered By: Lisha Silva on 12-08-2022 Lymphocytes (Bld) [#/Vol] 3.7 10*3/uL 1.00-4.8 [facility] Lymphocytes/100 WBC Auto (Bl d)Ordered By: Lisha Silva on 12-08-2022 Lymphocytes/100 WBC (Bld) 48.0 % . [facility] MCH Auto (RBC) [Entitic mass ]Ordered By: Lisha Silva on 12-08-2022 MCH (RBC) [Entitic mass] 30.4 pg 27.5-35.2 [facility] MCHC Auto (RBC) [Mass/Vol]Or dered By: Lisha Silva on 12-08-2022 MCHC (RBC) [Mass/Vol] 33.6 g/dL 32.5-35.6 [facility] MCV Auto (RBC) [Entitic vol] Ordered By: Lisha Silva on 12-08-2022 MCV (RBC) [Entitic vol] 90.4 fL 83.5-101 [facility] Monocyte distribution width [Entitic volume] in Blood by AutomatedOrdered By: Lisha Silva on 12-08-2022 Monocyte distribution width Auto (Bld) [Entitic vol] 21.84 % 0.00-20.00 [facility] Comment on above: For adults in ED, MD W > 20.0 may be associated with a higher risk of sepsis during the first 12 hrs of hospital admission Monocytes Auto (Bld) [#/Vol] Ordered By: Lisha Silva on 12-08-2022 Monocytes (Bld) [#/Vol] 0.7 10*3/uL 0.0-0.8 [facility] Monocytes/100 WBC Auto (Bld) Ordered By: Lisha Silva on 12-08-2022 Monocytes/100 WBC (Bld) 9.6 % . [facility] Natriuretic peptide B [Mass/ Vol]Ordered By: Lisha Silva on 12-08-2022 Natriuretic peptide B (Bld) [Mass/Vol] 22.0 pg/mL 5-100 [facility] Neutrophils Auto (Bld) [#/Vo l]Ordered By: Lisha Silva on 12-08-2022 Neutrophils (Bld) [#/Vol] 2.7 10*3/uL 1.8-7.7 [facility] Neutrophils/100 WBC Auto (Bl d)Ordered By: Lisha Silva on 12-08-2022 Neutrophils/100 WBC (Bld) 36.0 % . [facility] Nitrite Test strip Ql (U)Ord ered By: Lisha Silva on 12-08-2022 Nitrite Ql (U) Negative Negative [facility] No Panel InformationOrdered By: Lisha Silva on 12-08-2022 D-Dimer Quantitative (PE/DVT) 435 ng/mL 0-243 [facility] Comment on above: The reference range [...] conditions. Estimated GFR (CKD-EPI) > 60.0 mL/Min [facility] Creatinine Clearance (Chem 188.22 [facility] Nucleated erythrocytes [Pres ence] in Blood by Automated countOrdered By: Lisha Silva on 12-08-2022 Nucleated RBC Auto Ql (Bld) 0.1 /100{WBC} 0-0.5 [facility] Partial Thromboplastin Timeo n 12-08-2022 aPTT Coag (Bld) [Time] 23.5 s Low 25.1-36.5 Fi [facility] Comment on above: Performed By: #### H S TROP, CBC, BMP, BNP, DDIMER, PT, PTT ####[facility] [id number] [place] [id number] [facility] Platelet mean volume Auto (B ld) [Entitic vol]Ordered By: Lisha Silva on 12-08-2022 Platelet mean volume (Bld) [Entitic vol] 7.6 fL 6.6-10.1 [facility] Platelet poor plasma interna tional normalized ratio (INR) by coagulation assay (relatOrdered By: Lisha Silva on 12-08-2022 INR Coag (PPP) [Relative time] 1.1 {INR} [facility] Comment on above: INR Therapeutic Rang [...] 12-08-2022 Platelets (Bld) [#/Vol] 299 10*3/uL 150-450 [facility] Potassium [Moles/volume] in Serum or PlasmaOrdered By: Lisha Silva on 12-08-2022 Potassium [Moles/Vol] 3.9 mmol/L 3.5-5.1 [facility] Protein Auto test strip (U) [Mass/Vol]Ordered By: Lisha Silva on 12-08-2022 Protein (U) [Mass/Vol] Negative Negative [facility] Prothrombin Time INRon 12-08 INR Coag (PPP) [Relative time] 1.1 {INR} Normal [facility] Comment on above: Result Comment: INR [...] TROP, CBC, BMP, BNP, DDIMER, PT, PTT ####[facility] [place] [address] [facility] PT Coag (PPP) [Time] 12.6 s Normal 9.0-12.9 [facility] Comment on above: Performed By: #### H S TROP, CBC, BMP, BNP, DDIMER, PT, PTT ####[facility] [place] [address] [facility] RBC Auto (Bld) [#/Vol]Ordere d By: Lisha Silva on 12-08-2022 RBC (Bld) [#/Vol] 3.96 10*6/uL 3.90-5.60 [facility] Serum or plasma anion gap de terminationOrdered By: Lisha Silva on 12-08-2022 Anion gap [Moles/Vol] 10.9 mmol/L 6.0-15.0 [facility] Sodium [Moles/volume] in Ser um or PlasmaOrdered By: Lisha Silva on 12-08-2022 Sodium [Moles/Vol] 140 mmol/L 136-145 [facility] Specific gravity Auto test s trip (U) [Rel density]Ordered By: Lisha Silva on 12-08-2022 Specific gravity (U) [Rel density] 1.040 1.001-1.03 0 [facility] Squamous epithelial cells de tection in urine sediment by light microscopyOrdered By: Lisha Silva on 12-08-2022 Epithelial cells.squamous LM Ql (Urine sed) None seen [HPF] 0-2 [facility] Troponin I High Sensitivityo n 12-08-2022 Troponin I High Sensitivity 3.7 pg/mL Normal 0.0-20.0 [facility] Comment on above: Result Comment: PERF ORMED BY:[place] [address] [address] [place], [place] [phone] MEDICAL DIRECTORNATI LAUREN M.D. Performed By: #### H S TROP, CBC, BMP, BNP, DDIMER, PT, PTT ####[facility] [id number] Troponin I.cardiac [Mass/vol ume] in Serum or Plasma by Detection limit <= 0.01 ng/Ordered By: Lisha Silva on 12-08-2022 Troponin I.cardiac DL <= 0.01 ng/mL [Mass/Vol] 3.7 pg/mL 0.0-20.0 [facility] Urea nitrogen [Mass/volume] in Serum or PlasmaOrdered By: Lisha Silva on 12-08-2022 Urea nitrogen [Mass/Vol] 11 mg/dL 7-25 [facility] Urine bacteria detection by automated methodOrdered By: Lisha Silva on 12-08-2022 Bacteria Auto Ql (U) None seen None Seen [facility] Urine clarity by refractomet ry automatedOrdered By: Lisha Silva on 12-08-2022 Clarity Refractometry automated (U) Clear Clear [facility] Urine glucose measurement by automated test strip (mass/volume)Ordered By: Lisha Silva on 12-08-2022 Glucose Auto test strip (U) [Mass/Vol] Normal mg/dL Normal [facility] Urine hemoglobin detection b y automated test stripOrdered By: Lisha Silva on 12-08-2022 Hemoglobin Auto test strip Ql (U) Trace Negative [facility] Urine leukocyte esterase det ection by automated test stripOrdered By: Lisha Silva on 12-08-2022 Leukocyte esterase Auto test strip Ql (U) Negative Negative [facility] Urobilinogen Auto test strip (U) [Mass/Vol]Ordered By: Lisha Silva on 12-08-2022 Urobilinogen (U) [Mass/Vol] Normal mg/dL Normal [facility] WBC Auto (Bld) [#/Vol]Ordere d By: Lisha Silva on 12-08-2022 WBC (Bld) [#/Vol] 7.6 10*3/uL 4.1-10.5 [facility] pH Auto test strip (U)Ordere d By: Lisha Silva on 12-08-2022 pH (U) 6.5 [pH] 5.0-9.0 [facility] Alanine aminotransferase [En zymatic activity/volume] in Serum or PlasmaOrdered By: Shant Villegas on 11-21-2022 ALT [Catalytic activity/Vol] 40 U/L 7-52 [facility] Albumin [Mass/volume] in Ser um or Plasma by Bromocresol green (BCG) dye binding methoOrdered By: Shant Villegas on 11-21-2022 Albumin BCG dye [Mass/Vol] 2.3 g/dL 3.5-5.7 [facility] Alkaline phosphatase [Enzyma tic activity/volume] in Serum or PlasmaOrdered By: Shant Villegas on 11-21-2022 ALP [Catalytic activity/Vol] 110 U/L 34-104 [facility] Aspartate aminotransferase [ Enzymatic activity/volume] in Serum or PlasmaOrdered By: Shant Villegas on 11-21-2022 AST [Catalytic activity/Vol] 25 U/L 13-39 [facility] Basophils Auto (Bld) [#/Vol] Ordered By: Evi Gay on 11-21-2022 Basophils (Bld) [#/Vol] 0.1 10*3/uL 0.0-0.2 [facility] Basophils/100 WBC Auto (Bld) Ordered By: Evi Gay on 11-21-2022 Basophils/100 WBC (Bld) 1.4 % . [facility] Bilirubin.total [Mass/volume ] in Serum or PlasmaOrdered By: Shant Villegas on 11-21-2022 Bilirubin [Mass/Vol] 0.4 mg/dL 0.3-1.0 [facility] Calcium [Mass/volume] in Ser um or PlasmaOrdered By: Shant Villegas on 11-21-2022 Calcium [Mass/Vol] 8.1 mg/dL 8.6-10.3 [facility] Carbon dioxide, total [Moles /volume] in Serum or PlasmaOrdered By: Shant Villegas on 11-21-2022 CO2 [Moles/Vol] 31.0 mmol/L 21.0-31.0 [facility] Chloride [Moles/volume] in S thang or PlasmaOrdered By: Shant Villegas on 11-21-2022 Chloride [Moles/Vol] 105 mmol/L 98-107 [facility] Complete Blood Count Auto Di ffon 11-21-2022 Basophils (Bld) [#/Vol] 0.1 10*3/uL Normal 0.0-0.2 [facility] Comment on above: Result Comment: PERF ORMED BY:[address] [place], [place] [phone] MEDICAL DIRECTORNATI LAUREN M.D. Performed By: #### C BC ####[place] [id number] [facility] Basophils/100 WBC (Bld) 1.4 % Normal . [facility] Comment on above: Performed By: #### C BC ####[place] [id number] [facility] Eosinophils (Bld) [#/Vol] 0.3 10*3/uL Normal 0.0-0.45 [facility] Comment on above: Performed By: #### C BC ####[place] [id number] [facility] Eosinophils/100 WBC (Bld) 3.7 % Normal . [facility] Comment on above: Performed By: #### C BC ####[place] [id number] [facility] Erythrocyte distribution width (RBC) [Ratio] 13.8 % Normal 12.0-14.8 [facility] Comment on above: Performed By: #### C BC ####[place] [id number] [facility] Hematocrit (Bld) [Volume fraction] 25.0 % Low 38.8-50.0 [facility] Comment on above: Performed By: #### C BC ####[place] [id number] [facility] Hemoglobin (Bld) [Mass/Vol] 8.4 g/dL Low 13.0-17.0 [facility] Comment on above: Performed By: #### C BC ####[address] Lymphocytes (Bld) [#/Vol] 2.2 10*3/uL Normal 1.00-4.8 [facility] Comment on above: Performed By: #### C BC ####[place] [id number] [facility] Lymphocytes/100 WBC (Bld) 28.3 % Normal . [facility] Comment on above: Performed By: #### C BC ####[place] [id number] [facility] MCH (RBC) [Entitic mass] 30.2 pg Normal 27.5-35.2 [facility] Comment on above: Performed By: #### C BC ####[place] [id number] [facility] MCV (RBC) [Entitic vol] 89.8 fL Normal 83.5-101 [facility] Comment on above: Performed By: #### C BC ####[place] [id number] [facility] Mean Corpuscular HGB Conc 33.6 g/dL Normal 32.5-35.6 [facility] Comment on above: Performed By: #### C BC ####[place] [id number] [facility] Monocytes (Bld) [#/Vol] 0.8 10*3/uL Normal 0.0-0.8 [facility] Comment on above: Performed By: #### C BC ####[place] [id number] [facility] Monocytes/100 WBC (Bld) 10.5 % Normal . [facility] Comment on above: Performed By: #### C BC ####[place] [id number] [facility] Neutrophils (Bld) [#/Vol] 4.4 10*3/uL Normal 1.8-7.7 [facility] Comment on above: Performed By: #### C BC ####[address] [address] [facility] Neutrophils/100 WBC (Bld) 56.1 % Normal . [facility] Comment on above: Performed By: #### C BC ####[address] [address] [facility] NRBC% 0.2 /100{WBC} Normal 0-0.5 [facility] Comment on above: Performed By: #### C BC ####[address] [address] [facility] Platelet mean volume (Bld) [Entitic vol] 7.2 fL Normal 6.6-10.1 [facility] Comment on above: Performed By: #### C BC ####[address] [address] [facility] Platelets (Bld) [#/Vol] 486 10*3/uL High 150-450 [facility] Comment on above: Performed By: #### C BC ####[place] [id number] [facility] RBC (Bld) [#/Vol] 2.78 10*6/uL Low 3.90-5.60 [facility] Comment on above: Performed By: #### C BC ####[address] [address] [facility] WBC (Bld) [#/Vol] 7.9 10*3/uL Normal 4.1-10.5 [facility] Comment on above: Performed By: #### C BC ####[address] [address] [facility] Comprehensive Metabolic Pane tiago 11-21-2022 Albumin [Mass/Vol] 2.3 g/dL Low 3.5-5.7 [facility] Comment on above: Performed By: #### C MP, MG ####[address] [address] [facility] Albumin/Globulin [Mass ratio] 0.7 {ratio} Normal [facility] Comment on above: Performed By: #### C MP, MG ####[facility] [place] [address] [facility] ALP [Catalytic activity/Vol] 110 U/L High 34-104 [facility] Comment on above: Performed By: #### C MP, MG ####[place] [id number] [place] [address] [facility] ALT [Catalytic activity/Vol] 40 U/L Normal 7-52 [facility] Comment on above: Performed By: #### C MP, MG ####[address] [address] [facility] Anion gap [Moles/Vol] 8.7 mmol/L Normal 6.0-15.0 [facility] Comment on above: Performed By: #### C MP, MG ####[address] [address] [facility] AST [Catalytic activity/Vol] 25 U/L Normal 13-39 [facility] Comment on above: Performed By: #### C MP, MG ####[address] [address] [facility] Bilirubin [Mass/Vol] 0.4 mg/dL Normal 0.3-1.0 [facility] Comment on above: Performed By: #### C MP, MG ####[address] [address] [facility] Calcium [Mass/Vol] 8.1 mg/dL Low 8.6-10.3 [facility] Comment on above: Performed By: #### C MP, MG ####[address] [address] [facility] Chloride [Moles/Vol] 105 mmol/L Normal 98-107 [facility] Comment on above: Performed By: #### C MP, MG ####[address] [address] [facility] CO2 [Moles/Vol] 31.0 mmol/L Normal 21.0-31.0 [facility] Comment on above: Performed By: #### C MP, MG ####[address] [address] [facility] Creatinine [Mass/Vol] 0.43 mg/dL Low 0.70-1.30 [facility] Comment on above: Performed By: #### C MP, MG ####[place] [id number] [place] [id number] [facility] Creatinine Clr Calc Pharmacy 231.[address] [facility] Comment on above: Performed By: #### C MP, MG ####[place] [address] GFR/1.73 sq M.predicted MDRD (S/P/Bld) [Vol rate/Area] mL/min/{1.73_m2} [facility] Comment on above: Performed By: #### C MP, MG ####[place] [address] Globulin (S) [Mass/Vol] 3.4 g/dL [facility] Comment on above: Performed By: #### C MP, MG ####[address] Glucose [Mass/Vol] 105 mg/dL High 70-100 [facility] Comment on above: Result Comment: [facility] Glucose Reference Range is dependent on time and content of last meal. Glucose of more than 200 mg/dL in a nonstressed, ambulatory subject supports the diagnosis of Diabetes Mellitus. ADA recommended reference range Performed By: #### C MP, MG ####[address] Potassium [Moles/Vol] 3.7 mmol/L Normal 3.5-5.1 [facility] Comment on above: Performed By: #### C MP, MG ####[place] [id number] [facility] Protein [Mass/Vol] 5.7 g/dL Low 6.4-8.9 [facility] Comment on above: Performed By: #### C MP, MG ####[address] Sodium [Moles/Vol] 141 mmol/L Normal 136-145 [facility] Comment on above: Performed By: #### C MP, MG ####[facility] [id number] [place] [id number] [facility] Urea nitrogen [Mass/Vol] 11 mg/dL Normal 7-25 [facility] Comment on above: Performed By: #### C MP, MG ####[facility] [id number] [place] [id number] [facility] Creatinine [Mass/volume] in Serum or PlasmaOrdered By: Shant Villegas on 11-21-2022 Creatinine [Mass/Vol] 0.43 mg/dL 0.70-1.30 [facility] Eosinophils Auto (Bld) [#/Vo l]Ordered By: Evi Gay on 11-21-2022 Eosinophils (Bld) [#/Vol] 0.3 10*3/uL 0.0-0.45 [facility] Eosinophils/100 WBC Auto (Bl d)Ordered By: Evi Gay on 11-21-2022 Eosinophils/100 WBC (Bld) 3.7 % . [facility] Erythrocyte distribution wid th Auto (RBC) [Ratio]Ordered By: Evi Gay on 11-21-2022 Erythrocyte distribution width (RBC) [Ratio] 13.8 % 12.0-14.8 [facility] Globulin Calc (S) [Mass/Vol] Ordered By: Shant Villegas on 11-21-2022 Globulin (S) [Mass/Vol] 3.4 g/dL [facility] Glucose [Mass/volume] in Ser um or PlasmaOrdered By: Shant Villegas on 11-21-2022 Glucose [Mass/Vol] 105 mg/dL 70-100 [facility] Comment on above: ADA recommended refe rence rangeRandom Glucose Reference Range is dependent on time and content of last meal. Glucose of more than 200 mg/dL in a nonstressed, ambulatory subject supports the diagnosis of Diabetes Mellitus. Hematocrit Auto (Bld) [Volum e fraction]Ordered By: Evi Gay on 11-21-2022 Hematocrit (Bld) [Volume fraction] 25.0 % 38.8-50.0 [facility] Hemoglobin [Mass/volume] in BloodOrdered By: Evi Gay on 11-21-2022 Hemoglobin (Bld) [Mass/Vol] 8.4 g/dL 13.0-17.0 [facility] Leukocytes [#/volume] correc wiliam for nucleated erythrocytes in Blood by Automated counOrdered By: Evi Deidra on 11-21-2022 WBC corrected for nucl RBC Auto (Bld) [#/Vol] 7.9 10*3/uL 4.1-10.5 [facility] Lymphocytes Auto (Bld) [#/Vo l]Ordered By: Evi Deidra on 11-21-2022 Lymphocytes (Bld) [#/Vol] 2.2 10*3/uL 1.00-4.8 [facility] Lymphocytes/100 WBC Auto (Bl d)Ordered By: Evi Gay on 11-21-2022 Lymphocytes/100 WBC (Bld) 28.3 % . [facility] MCH Auto (RBC) [Entitic mass ]Ordered By: Evi Gay on 11-21-2022 MCH (RBC) [Entitic mass] 30.2 pg 27.5-35.2 [facility] MCHC Auto (RBC) [Mass/Vol]Or dered By: Evi Gay on 11-21-2022 MCHC (RBC) [Mass/Vol] 33.6 g/dL 32.5-35.6 [facility] MCV Auto (RBC) [Entitic vol] Ordered By: Evi Gay on 11-21-2022 MCV (RBC) [Entitic vol] 89.8 fL 83.5-101 [facility] Magnesiumon 11-21-2022 Magnesium [Mass/Vol] 1.8 mg/dL Low 1.9-2.7 [facility] Comment on above: Result Comment: PERF ORMED BY:[facility] [place] [place], [place] [phone] MEDICAL DIRECTORNATI LAUREN M.D. Performed By: #### C MP, MG ####[facility] [id number] [place] [address] [facility] Magnesium [Mass/volume] in S thang or PlasmaOrdered By: Shant Villegas on 11-21-2022 Magnesium [Mass/Vol] 1.8 mg/dL 1.9-2.7 [facility] Monocytes Auto (Bld) [#/Vol] Ordered By: Evi Gay on 11-21-2022 Monocytes (Bld) [#/Vol] 0.8 10*3/uL 0.0-0.8 [facility] Monocytes/100 WBC Auto (Bld) Ordered By: Evi Gay on 11-21-2022 Monocytes/100 WBC (Bld) 10.5 % . [facility] Neutrophils Auto (Bld) [#/Vo l]Ordered By: Evi Gay on 11-21-2022 Neutrophils (Bld) [#/Vol] 4.4 10*3/uL 1.8-7.7 [facility] Neutrophils/100 WBC Auto (Bl d)Ordered By: Evi Gay on 11-21-2022 Neutrophils/100 WBC (Bld) 56.1 % . [facility] No Panel InformationOrdered By: Shant Villegas on 11-21-2022 Estimated GFR (CKD-EPI) > 60.0 mL/Min [facility] Creatinine Clearance (Chem 231.99 [facility] Nucleated erythrocytes [Pres ence] in Blood by Automated countOrdered By: Evi Gay on 11-21-2022 Nucleated RBC Auto Ql (Bld) 0.2 /100{WBC} 0-0.5 [facility] Platelet mean volume Auto (B ld) [Entitic vol]Ordered By: Evi Gay on 11-21-2022 Platelet mean volume (Bld) [Entitic vol] 7.2 fL 6.6-10.1 [facility] Platelets Auto (Bld) [#/Vol] Ordered By: Evi Gay on 11-21-2022 Platelets (Bld) [#/Vol] 486 10*3/uL 150-450 [facility] Potassium [Moles/volume] in Serum or PlasmaOrdered By: Shant Villegas on 11-21-2022 Potassium [Moles/Vol] 3.7 mmol/L 3.5-5.1 [facility] Protein [Mass/volume] in Ser um or PlasmaOrdered By: Shant Villegas on 11-21-2022 Protein [Mass/Vol] 5.7 g/dL 6.4-8.9 [facility] RBC Auto (Bld) [#/Vol]Ordere d By: Evi Gay on 11-21-2022 RBC (Bld) [#/Vol] 2.78 10*6/uL 3.90-5.60 [facility] Serum or plasma albumin/glob ulin mass ratioOrdered By: Shant Villegas on 11-21-2022 Albumin/Globulin [Mass ratio] 0.7 {ratio} [facility] Serum or plasma anion gap de terminationOrdered By: Shant Villegas on 11-21-2022 Anion gap [Moles/Vol] 8.7 mmol/L 6.0-15.0 [facility] Sodium [Moles/volume] in Ser um or PlasmaOrdered By: Shant Villegas on 11-21-2022 Sodium [Moles/Vol] 141 mmol/L 136-145 [facility] Urea nitrogen [Mass/volume] in Serum or PlasmaOrdered By: Shant Villegas on 11-21-2022 Urea nitrogen [Mass/Vol] 11 mg/dL 7-25 [facility] WBC Auto (Bld) [#/Vol]Ordere d By: Evi Gay on 11-21-2022 WBC (Bld) [#/Vol] 7.9 10*3/uL 4.1-10.5 [facility] Complete Blood Count Auto Di ffon 11-20-2022 Basophils (Bld) [#/Vol] 0.1 10*3/uL Normal 0.0-0.2 [facility] Comment on above: Result Comment: PERF ORMED BY:[address] [place], [place] [phone] MEDICAL DIRECTORNATI LAUREN M.D. Performed By: #### C BC ####[place] [id number] [place] [id number] [facility] Basophils/100 WBC (Bld) 1.0 % Normal . [facility] Comment on above: Performed By: #### C BC ####[facility] [place] [address] Eosinophils (Bld) [#/Vol] 0.2 10*3/uL Normal 0.0-0.45 [facility] Comment on above: Performed By: #### C BC ####[address] Eosinophils/100 WBC (Bld) 2.2 % Normal . [facility] Comment on above: Performed By: #### C BC ####[address] Erythrocyte distribution width (RBC) [Ratio] 13.7 % Normal 12.0-14.8 [facility] Comment on above: Performed By: #### C BC ####[address] Hematocrit (Bld) [Volume fraction] 29.6 % Low 38.8-50.0 [facility] Comment on above: Performed By: #### C BC ####[address] Hemoglobin (Bld) [Mass/Vol] 9.8 g/dL Low 13.0-17.0 [facility] Comment on above: Performed By: #### C BC ####[address] Lymphocytes (Bld) [#/Vol] 1.9 10*3/uL Normal 1.00-4.8 [facility] Comment on above: Performed By: #### C BC ####[address] Lymphocytes/100 WBC (Bld) 18.5 % Normal . [facility] Comment on above: Performed By: #### C BC ####[address] MCH (RBC) [Entitic mass] 29.5 pg Normal 27.5-35.2 [facility] Comment on above: Performed By: #### C BC ####[address] MCV (RBC) [Entitic vol] 89.4 fL Normal 83.5-101 [facility] Comment on above: Performed By: #### C BC ####[place] [id number] [facility] Mean Corpuscular HGB Conc 33.0 g/dL Normal 32.5-35.6 [facility] Comment on above: Performed By: #### C BC ####[place] [id number] [facility] Monocytes (Bld) [#/Vol] 1.0 10*3/uL High 0.0-0.8 [facility] Comment on above: Performed By: #### C BC ####[place] [id number] [facility] Monocytes/100 WBC (Bld) 9.9 % Normal . [facility] Comment on above: Performed By: #### C BC ####[place] [id number] [facility] Neutrophils (Bld) [#/Vol] 6.9 10*3/uL Normal 1.8-7.7 [facility] Comment on above: Performed By: #### C BC ####[place] [id number] [facility] Neutrophils/100 WBC (Bld) 68.4 % Normal . [facility] Comment on above: Performed By: #### C BC ####[place] [id number] [facility] NRBC% 0.1 /100{WBC} Normal 0-0.5 [facility] Comment on above: Performed By: #### C BC ####[place] [id number] [facility] Platelet mean volume (Bld) [Entitic vol] 7.5 fL Normal 6.6-10.1 [facility] Comment on above: Performed By: #### C BC ####[place] [id number] [facility] Platelets (Bld) [#/Vol] 434 10*3/uL Normal 150-450 [facility] Comment on above: Performed By: #### C BC ####[place] [address] [place] [address] [facility] RBC (Bld) [#/Vol] 3.31 10*6/uL Low 3.90-5.60 [facility] Comment on above: Performed By: #### C BC ####[address] [address] [facility] WBC (Bld) [#/Vol] 10.0 10*3/uL Normal 4.1-10.5 [facility] Comment on above: Performed By: #### C BC ####[place] [id number] [facility] Comprehensive Metabolic Pane tiago 11-20-2022 Albumin [Mass/Vol] 2.4 g/dL Low 3.5-5.7 [facility] Comment on above: Performed By: #### C MP, MG ####[place] [id number] [facility] Albumin/Globulin [Mass ratio] 0.7 {ratio} Normal [facility] Comment on above: Performed By: #### C MP, MG ####[place] [id number] [facility] ALP [Catalytic activity/Vol] 118 U/L High 34-104 [facility] Comment on above: Performed By: #### C MP, MG ####[place] [id number] [facility] ALT [Catalytic activity/Vol] 47 U/L Normal 7-52 [facility] Comment on above: Performed By: #### C MP, MG ####[place] [id number] [facility] Anion gap [Moles/Vol] 10.6 mmol/L Normal 6.0-15.0 [facility] Comment on above: Performed By: #### C MP, MG ####[place] [id number] [facility] AST [Catalytic activity/Vol] 21 U/L Normal 13-39 [facility] Comment on above: Performed By: #### C MP, MG ####[place] [address] [place] [address] [facility] Bilirubin [Mass/Vol] 0.6 mg/dL Normal 0.3-1.0 [facility] Comment on above: Performed By: #### C MP, MG ####[place] [address] [place] [address] [facility] Calcium [Mass/Vol] 8.2 mg/dL Low 8.6-10.3 [facility] Comment on above: Performed By: #### C MP, MG ####[place] [address] [place] [address] [facility] Chloride [Moles/Vol] 100 mmol/L Normal 98-107 [facility] Comment on above: Performed By: #### C MP, MG ####[place] [address] [place] [address] [facility] CO2 [Moles/Vol] 31.8 mmol/L High 21.0-31.0 [facility] Comment on above: Performed By: #### C MP, MG ####[place] [address] [place] [address] [facility] Creatinine [Mass/Vol] 0.35 mg/dL Low 0.70-1.30 [facility] Comment on above: Performed By: #### C MP, MG ####[place] [address] [place] [address] [facility] Creatinine Clr Calc Pharmacy 285.[address] [facility] Comment on above: Performed By: #### C MP, MG ####[place] [address] [place] [address] [place] GFR/1.73 sq M.predicted MDRD (S/P/Bld) [Vol rate/Area] mL/min/{1.73_m2} [facility] Comment on above: Performed By: #### C MP, MG ####[place] [address] [place] [address] [facility] Globulin (S) [Mass/Vol] 3.6 g/dL [facility] Comment on above: Performed By: #### C MP, MG ####[place] [address] [place] [address] [facility] Glucose [Mass/Vol] 89 mg/dL Normal 70-100 [facility] Comment on above: Result Comment: [place] Glucose Reference Range is dependent on time and content of last meal. Glucose of more than 200 mg/dL in a nonstressed, ambulatory subject supports the diagnosis of Diabetes Mellitus. ADA recommended reference range Performed By: #### C MP, MG ####[place] [address] [place] [id number] [facility] Potassium [Moles/Vol] 3.4 mmol/L Low 3.5-5.1 [facility] Comment on above: Performed By: #### C MP, MG ####[place] [id number] [facility] Protein [Mass/Vol] 6.0 g/dL Low 6.4-8.9 [facility] Comment on above: Performed By: #### C MP, MG ####[place] [id number] [facility] Sodium [Moles/Vol] 139 mmol/L Normal 136-145 [facility] Comment on above: Performed By: #### C MP, MG ####[place] [id number] [facility] Urea nitrogen [Mass/Vol] 13 mg/dL Normal 7-25 [facility] Comment on above: Performed By: #### C MP, MG ####[place] [id number] [facility] Magnesiumon 11-20-2022 Magnesium [Mass/Vol] 1.8 mg/dL Low 1.9-2.7 [facility] Comment on above: Result Comment: PERF ORMED BY:[place] [address] [place], [place] [phone] MEDICAL DIRECTORNATI LAUREN M.D. Performed By: #### C MP, MG ####[place] [id number] [facility] XR chest 2V*on 11-20-2022 XR chest 2V* Normal [facility] Complete Blood Count Auto Di ffon 11-19-2022 Basophils (Bld) [#/Vol] 0.1 10*3/uL Normal 0.0-0.2 [facility] Comment on above: Result Comment: PERF ORMED BY:[address] [place], [place] [phone] MEDICAL DIRECTORNATI LAUREN M.D. Performed By: #### C BC ####[address] [address] [facility] Basophils/100 WBC (Bld) 1.2 % Normal . [facility] Comment on above: Performed By: #### C BC ####[place] [id number] [facility] Eosinophils (Bld) [#/Vol] 0.2 10*3/uL Normal 0.0-0.45 [facility] Comment on above: Performed By: #### C BC ####[place] [id number] [facility] Eosinophils/100 WBC (Bld) 2.0 % Normal . [facility] Comment on above: Performed By: #### C BC ####[place] [id number] [facility] Erythrocyte distribution width (RBC) [Ratio] 13.7 % Normal 12.0-14.8 [facility] Comment on above: Performed By: #### C BC ####[place] [id number] [facility] Hematocrit (Bld) [Volume fraction] 26.0 % Low 38.8-50.0 [facility] Comment on above: Performed By: #### C BC ####[place] [id number] [facility] Hemoglobin (Bld) [Mass/Vol] 8.6 g/dL Low 13.0-17.0 [facility] Comment on above: Performed By: #### C BC ####[address] [address] [place] Lymphocytes (Bld) [#/Vol] 2.0 10*3/uL Normal 1.00-4.8 [facility] Comment on above: Performed By: #### C BC ####[address] Lymphocytes/100 WBC (Bld) 16.7 % Normal . [facility] Comment on above: Performed By: #### C BC ####[address] MCH (RBC) [Entitic mass] 29.3 pg Normal 27.5-35.2 [facility] Comment on above: Performed By: #### C BC ####[address] MCV (RBC) [Entitic vol] 89.0 fL Normal 83.5-101 [facility] Comment on above: Performed By: #### C BC ####[address] Mean Corpuscular HGB Conc 32.9 g/dL Normal 32.5-35.6 [facility] Comment on above: Performed By: #### C BC ####[address] Monocytes (Bld) [#/Vol] 1.1 10*3/uL High 0.0-0.8 [facility] Comment on above: Performed By: #### C BC ####[address] Monocytes/100 WBC (Bld) 9.6 % Normal . [facility] Comment on above: Performed By: #### C BC ####[address] Neutrophils (Bld) [#/Vol] 8.3 10*3/uL High 1.8-7.7 [facility] Comment on above: Performed By: #### C BC ####[address] Neutrophils/100 WBC (Bld) 70.5 % Normal . [facility] Comment on above: Performed By: #### C BC ####[address] [address] [facility] NRBC% 0.1 /100{WBC} Normal 0-0.5 [facility] Comment on above: Performed By: #### C BC ####[place] [id number] [facility] Platelet mean volume (Bld) [Entitic vol] 7.6 fL Normal 6.6-10.1 [facility] Comment on above: Performed By: #### C BC ####[address] [address] [facility] Platelets (Bld) [#/Vol] 451 10*3/uL High 150-450 [facility] Comment on above: Performed By: #### C BC ####[place] [id number] [facility] RBC (Bld) [#/Vol] 2.92 10*6/uL Low 3.90-5.60 [facility] Comment on above: Performed By: #### C BC ####[place] [id number] [facility] WBC (Bld) [#/Vol] 11.8 10*3/uL High 4.1-10.5 [facility] Comment on above: Performed By: #### C BC ####[address] [address] [facility] Comprehensive Metabolic Pane tiago 11-19-2022 Albumin [Mass/Vol] 2.3 g/dL Low 3.5-5.7 [facility] Comment on above: Performed By: #### M G, CMP ####[place] [id number] [facility] Albumin/Globulin [Mass ratio] 0.7 {ratio} Normal [facility] Comment on above: Performed By: #### M G, CMP ####[place] [id number] [facility] ALP [Catalytic activity/Vol] 139 U/L High 34-104 [facility] Comment on above: Performed By: #### Jayesh Paige, CMP ####[place] [place] [address] [facility] ALT [Catalytic activity/Vol] 59 U/L High 7-52 [facility] Comment on above: Performed By: #### Jayesh Paige, CMP ####[place] [address] [place] [address] [facility] Anion gap [Moles/Vol] 9.2 mmol/L Normal 6.0-15.0 [facility] Comment on above: Performed By: #### Jayesh Paige, CMP ####[address] [address] [facility] AST [Catalytic activity/Vol] 28 U/L Normal 13-39 [facility] Comment on above: Performed By: #### Jayesh Paige, CMP ####[address] [address] [facility] Bilirubin [Mass/Vol] 0.7 mg/dL Normal 0.3-1.0 [facility] Comment on above: Performed By: #### Jayesh Paige, CMP ####[address] [address] [facility] Calcium [Mass/Vol] 8.0 mg/dL Low 8.6-10.3 [facility] Comment on above: Performed By: #### Jayesh Paige, CMP ####[address] [address] [facility] Chloride [Moles/Vol] 99 mmol/L Normal 98-107 [facility] Comment on above: Performed By: #### Jayesh Paige, CMP ####[address] [address] [facility] CO2 [Moles/Vol] 34.0 mmol/L High 21.0-31.0 [facility] Comment on above: Performed By: #### Jayesh Paige, CMP ####[address] [address] [facility] Creatinine [Mass/Vol] 0.38 mg/dL Low 0.70-1.30 [facility] Comment on above: Performed By: #### M Royal, CMP ####[place] [place] [address] [facility] Creatinine Clr Calc Pharmacy 284.[address] [facility] Comment on above: Performed By: #### Jayesh Paige, CMP ####[place] [place] [address] [facility] GFR/1.73 sq M.predicted MDRD (S/P/Bld) [Vol rate/Area] mL/min/{1.73_m2} [facility] Comment on above: Performed By: #### Jayesh Paige, CMP ####[place] [place] [address] [facility] Globulin (S) [Mass/Vol] 3.5 g/dL [facility] Comment on above: Performed By: #### Jayesh Paige, CMP ####[address] [address] [facility] Glucose [Mass/Vol] 92 mg/dL Normal 70-100 [facility] Comment on above: Result Comment: [facility] Glucose Reference Range is dependent on time and content of last meal. Glucose of more than 200 mg/dL in a nonstressed, ambulatory subject supports the diagnosis of Diabetes Mellitus. ADA recommended reference range Performed By: #### Jayesh Paige, CMP ####[address] [address] [facility] Potassium [Moles/Vol] 3.2 mmol/L Low 3.5-5.1 [facility] Comment on above: Performed By: #### Jayesh Paige, CMP ####[address] [address] [facility] Protein [Mass/Vol] 5.8 g/dL Low 6.4-8.9 [facility] Comment on above: Performed By: #### Jayesh Paige, CMP ####[place] [place] [address] [facility] Sodium [Moles/Vol] 139 mmol/L Normal 136-145 [facility] Comment on above: Performed By: #### Jayesh Paige, CMP ####[facility] [id number] [place] [address] [facility] Urea nitrogen [Mass/Vol] 11 mg/dL Normal 7-25 [facility] Comment on above: Performed By: #### M G, CMP ####[facility] [place] [address] [facility] Magnesiumon 11-19-2022 Magnesium [Mass/Vol] 1.8 mg/dL Low 1.9-2.7 [facility] Comment on above: Result Comment: PERF ORMED BY:[place] [id number] [place]fred[place], [place] [phone] MEDICAL DIRECTORNATI LAUREN M.D. Performed By: #### M Royal, CMP ####[place] [id number] [place] [address] [facility] Arterial Blood Gason 023 ABG Base Excess 7.9 mmol/L High -3.0-3.0 [facility] Comment on above: Performed By: #### A BG ####Point of Care testing, ABG Frac Inspired O2 40 % Normal [facility] Comment on above: Performed By: #### A BG ####Point of Care testing, ABG Oxygen Content 7.1 mmol/L Normal 6.6-9.7 [facility] Comment on above: Performed By: #### A BG ####Point of Care testing, ABG Oxygen Saturation 95.6 % Normal 95.0-100.0 [facility] Comment on above: Performed By: #### A BG ####Point of Care testing, ABG PCO2 43.5 mm[Hg] Normal 35.0-45.0 [facility] Comment on above: Performed By: #### A BG ####Point of Care testing, ABG PEEP 6 Normal [facility] Comment on above: Performed By: #### A BG ####Point of Care testing, ABG PH 7.49 High 7.35-7.45 [facility] Comment on above: Performed By: #### A BG ####Point of Care testing, ABG PO2 78.1 mm[Hg] Low 80.0-100.0 [facility] Comment on above: Performed By: #### A BG ####Point of Care testing, ABG TV [address] [facility] Comment on above: Performed By: #### A BG ####Point of Care testing, CO2 [Moles/Vol] 33.5 mmol/L High 23.0-27.0 [facility] Comment on above: Performed By: #### A BG ####Point of Care testing, HCO3 (Bld) [Moles/Vol] 32.2 mmol/L High 23.0-29.[address] [facility] Comment on above: Performed By: #### A BG ####Point of Care testing, Respiratory Critical [facility] Comment on above: Result Comment: Crit ical Value called on: 11/18/2022 at 05:43PERFORMED BY:[address] [place], [place] [phone] MEDICAL DIRECTORNATI LAUREN M.D. Performed By: #### A BG ####Point of Care testing, Set Respiratory Rate 20 [facility] Comment on above: Performed By: #### A BG ####Point of Care testing, VBG Draw Site Right Radial [facility] Comment on above: Performed By: #### A BG ####Point of Care testing, Ventilator Mode AC [facility] Comment on above: Performed By: #### A BG ####Point of Care testing, Comprehensive Metabolic Pane tiago 11-18-2022 Albumin [Mass/Vol] 2.3 g/dL Low 3.5-5.7 [facility] Comment on above: Performed By: #### T RIG, SCAN CBC, MG, CMP ####[facility] [id number] [place] [address] [facility] Albumin/Globulin [Mass ratio] 0.6 {ratio} [facility] Comment on above: Performed By: #### T RIG, SCAN CBC, MG, CMP ####[facility] [id number] [place] [address] [facility] ALP [Catalytic activity/Vol] 169 U/L High 34-104 [facility] Comment on above: Performed By: #### T RIG, SCAN CBC, MG, CMP ####[address] [place] [address] [facility] ALT [Catalytic activity/Vol] 81 U/L High 7-52 [facility] Comment on above: Performed By: #### T RIG, SCAN CBC, MG, CMP ####[address] [place] [address] [facility] Anion gap [Moles/Vol] 8.2 mmol/L Normal 6.0-15.0 [facility] Comment on above: Performed By: #### T RIG, SCAN CBC, MG, CMP ####[place] [id number] [facility] AST [Catalytic activity/Vol] 53 U/L High 13-39 [facility] Comment on above: Performed By: #### T RIG, SCAN CBC, MG, CMP ####[place] [id number] [facility] Bilirubin [Mass/Vol] 0.5 mg/dL Normal 0.3-1.0 [facility] Comment on above: Performed By: #### T RIG, SCAN CBC, MG, CMP ####[place] [id number] [facility] Calcium [Mass/Vol] 7.9 mg/dL Low 8.6-10.3 [facility] Comment on above: Performed By: #### T RIG, SCAN CBC, MG, CMP ####[address] [address] [facility] Chloride [Moles/Vol] 95 mmol/L Low 98-107 [facility] Comment on above: Performed By: #### T RIG, SCAN CBC, MG, CMP ####[facility] [id number] [place] [address] [facility] CO2 [Moles/Vol] 34.3 mmol/L High 21.0-31.0 [facility] Comment on above: Performed By: #### T RIG, SCAN CBC, MG, CMP ####[facility] [id number] [place] [address] [facility] Creatinine [Mass/Vol] 0.39 mg/dL Low 0.70-1.30 [facility] Comment on above: Performed By: #### T RIG, SCAN CBC, MG, CMP ####[facility] [place] [address] [place] Creatinine Clr Calc Pharmacy 276.[address] [facility] Comment on above: Performed By: #### T RIG, SCAN CBC, MG, CMP ####[address] [place] [address] [place] GFR/1.73 sq M.predicted MDRD (S/P/Bld) [Vol rate/Area] mL/min/{1.73_m2} [facility] Comment on above: Performed By: #### T RIG, SCAN CBC, MG, CMP ####[place] [address] [place] [id number] [facility] Globulin (S) [Mass/Vol] 3.6 g/dL [facility] Comment on above: Performed By: #### T RIG, SCAN CBC, MG, CMP ####[place] [address] [place] [id number] [facility] Glucose [Mass/Vol] 115 mg/dL High 70-100 [facility] Comment on above: Result Comment: [place] Glucose Reference Range is dependent on time and content of last meal. Glucose of more than 200 mg/dL in a nonstressed, ambulatory subject supports the diagnosis of Diabetes Mellitus. ADA recommended reference range Performed By: #### T RIG, SCAN CBC, MG, CMP ####[facility] [place] [address] [facility] Potassium [Moles/Vol] 3.5 mmol/L Normal 3.5-5.1 [facility] Comment on above: Performed By: #### T RIG, SCAN CBC, MG, CMP ####[facility] [place] [address] [facility] Protein [Mass/Vol] 5.9 g/dL Low 6.4-8.9 [facility] Comment on above: Performed By: #### T RIG, SCAN CBC, MG, CMP ####[facility] [id number] [place] [address] [facility] Sodium [Moles/Vol] 134 mmol/L Low 136-145 [facility] Comment on above: Performed By: #### T RIG, SCAN CBC, MG, CMP ####[facility] [id number] [place] [address] [facility] Urea nitrogen [Mass/Vol] 15 mg/dL Normal 7-25 [facility] Comment on above: Performed By: #### T RIG, SCAN CBC, MG, CMP ####[facility] [id number] [place] [id number] [facility] Glucose Glucometer (BldC) [M ass/Vol]Ordered By: Shant Villegas on 11-18-2022 Glucose [Mass/Vol] 120 mg/dL [facility] Comment on above: Random Glucose Refer ence Range is dependent on time and content of last meal. Glucose of more than 200 mg/dL in a nonstressed, ambulatory subject supports the diagnosis of Diabetes Mellitus. Glucose Poct Glucometerson 0 11-18-2022 Glucose [Mass/Vol] 120 mg/dL Normal [facility] Comment on above: Result Comment: [place] om Glucose Reference Range is dependent on time and content of last meal. Glucose of more than 200 mg/dL in a nonstressed, ambulatory subject supports the diagnosis of Diabetes Mellitus.PERFORMED BY:[facility] [place], [place] [phone] MEDICAL DIRECTORNATI LAUREN M.D. Performed By: #### G LULS ####Point of Care testing, Hypochromia LM Ql (Bld)Order ed By: Evi Gay on 11-18-2022 Hypochromia Ql (Bld) Moderate [facility] Laboratory - Chemistry and C hemistry - challengeOrdered By: Shant Villegas on 11-18-2022 CO2 [Moles/Vol] 33.5 mmol/L 23.0-27.0 [facility] HCO3 (Bld) [Moles/Vol] 32.2 mmol/L 23.0-29.0 F [facility] Magnesiumon 11-18-2022 Magnesium [Mass/Vol] 1.9 mg/dL Normal 1.9-2.7 [facility] Comment on above: Performed By: #### T RIG, SCAN CBC, MG, CMP ####[facility] [id number] No Panel InformationOrdered By: Shant Villegas on 11-18-2022 Arterial Blood Base Excess 7.9 mmol/L -3.0-3.0 [facility] Arterial Blood Oxygen Content 7.1 mmol/L 6.6-9.7 [facility] Arterial Blood Oxygen Saturation 95.6 % 95.0-100.0 [facility] Arterial Blood Partial Pressure CO2 43.5 mm[Hg] 35.0-45.0 [facility] Arterial Blood Partial Pressure O2 78.1 mm[Hg] 80.0-100.0 [facility] Arterial Blood pH 7.49 7.35-7.45 [facility] Blood Gas Critical Value See comment [facility] Comment on above: Critical Value abdi d on: 11/18/2022 at 05:43 Blood Gas PEEP 6 cmH2O [facility] Blood Gas Sample Site Right radial F [facility] Blood Gas Set Respiration Rate 20 [facility] Blood Gas Tidal Volume 500 mL Fi [facility] Blood Gas Ventilator Mode Ac [facility] FiO2 40 % [facility] Platelet adequacy [Presence] in Blood by Light microscopyOrdered By: Evi Gay on 11-18-2022 Platelets LM Ql (Bld) Normal Normal [facility] Platelet morphology finding [Identifier] in BloodOrdered By: Evi Gay on 11-18-2022 Platelet morphology finding Nom (Bld) Normal Normal [facility] Poikilocytosis [Presence] in Blood by Light microscopyOrdered By: Evi Gay on 11-18-2022 Poikilocytosis LM Ql (Bld) Slight [facility] Polychromasia [Presence] in Blood by Light microscopyOrdered By: Evi Gay on 11-18-2022 Polychromasia LM Ql (Bld) Moderate [facility] RBC morphologyOrdered By: He idi Deidra on 11-18-2022 RBC morphology finding Nom (Bld) N/A [facility] Scan and CBCon 11-18-2022 Basophils (Bld) [#/Vol] 0.1 10*3/uL Normal 0.0-0.2 [facility] Comment on above: Performed By: #### T RIG, SCAN CBC, MG, CMP ####[address] Basophils/100 WBC (Bld) 0.7 % Normal . [facility] Comment on above: Performed By: #### T RIG, SCAN CBC, MG, CMP ####[address] Eosinophils (Bld) [#/Vol] 0.2 10*3/uL Normal 0.0-0.45 [facility] Comment on above: Performed By: #### T RIG, SCAN CBC, MG, CMP ####[address] Eosinophils/100 WBC (Bld) 1.6 % Normal . [facility] Comment on above: Performed By: #### T RIG, SCAN CBC, MG, CMP ####[address] Erythrocyte distribution width (RBC) [Ratio] 13.8 % Normal 12.0-14.8 [facility] Comment on above: Performed By: #### T RIG, SCAN CBC, MG, CMP ####[address] Hematocrit (Bld) [Volume fraction] 25.8 % Low 38.8-50.0 [facility] Comment on above: Performed By: #### T RIG, SCAN CBC, MG, CMP ####[address] Hemoglobin (Bld) [Mass/Vol] 8.6 g/dL Low 13.0-17.0 [facility] Comment on above: Performed By: #### T RIG, SCAN CBC, MG, CMP ####[address] Hypochromasia Moderate Normal [facility] Comment on above: Performed By: #### T RIG, SCAN CBC, MG, CMP ####[address] Lymphocytes (Bld) [#/Vol] 1.6 10*3/uL Normal 1.00-4.8 [facility] Comment on above: Performed By: #### T RIG, SCAN CBC, MG, CMP ####[address] Lymphocytes/100 WBC (Bld) 11.6 % Normal . [facility] Comment on above: Performed By: #### T RIG, SCAN CBC, MG, CMP ####[address] MCH (RBC) [Entitic mass] 29.6 pg Normal 27.5-35.2 [facility] Comment on above: Performed By: #### T RIG, SCAN CBC, MG, CMP ####[address] MCV (RBC) [Entitic vol] 89.0 fL Normal 83.5-101 [facility] Comment on above: Performed By: #### T RIG, SCAN CBC, MG, CMP ####[address] Mean Corpuscular HGB Conc 33.3 g/dL Normal 32.5-35.6 [facility] Comment on above: Performed By: #### T RIG, SCAN CBC, MG, CMP ####[address] Monocytes (Bld) [#/Vol] 1.7 10*3/uL High 0.0-0.8 [facility] Comment on above: Performed By: #### T RIG, SCAN CBC, MG, CMP ####[address] Monocytes/100 WBC (Bld) 12.5 % Normal . [facility] Comment on above: Performed By: #### T RIG, SCAN CBC, MG, CMP ####[address] Neutrophils (Bld) [#/Vol] 10.1 10*3/uL High 1.8-7.7 [facility] Comment on above: Performed By: #### T RIG, SCAN CBC, MG, CMP ####[address] Neutrophils/100 WBC (Bld) 73.6 % Normal . [facility] Comment on above: Performed By: #### T RIG, SCAN CBC, MG, CMP ####[address] NRBC% 0.1 /100{WBC} Normal 0-0.5 [facility] Comment on above: Performed By: #### T RIG, SCAN CBC, MG, CMP ####[address] Platelet Estimate Normal Normal Normal [facility] Comment on above: Performed By: #### T RIG, SCAN CBC, MG, CMP ####[address] Platelet mean volume (Bld) [Entitic vol] 7.7 fL Normal 6.6-10.1 [facility] Comment on above: Performed By: #### T RIG, SCAN CBC, MG, CMP ####[address] Platelet Morphology Normal Normal Normal [facility] Comment on above: Result Comment: PERF ORMED BY:[address] [place], [place] [phone] MEDICAL ALEKSANDAR LAUREN M.D. Performed By: #### T RIG, SCAN CBC, MG, CMP ####[address] Platelets (Bld) [#/Vol] 418 10*3/uL Normal 150-450 [facility] Comment on above: Performed By: #### T RIG, SCAN CBC, MG, CMP ####[facility] Poikilocytosis Slight Normal [facility] Comment on above: Performed By: #### T RIG, SCAN CBC, MG, CMP ####[facility] [id number] [address] Polychromasia Moderate Normal [facility] Comment on above: Performed By: #### T RIG, SCAN CBC, MG, CMP ####[facility] Dac[address] RBC (Bld) [#/Vol] 2.90 10*6/uL Low 3.90-5.60 [facility] Comment on above: Performed By: #### T RIG, SCAN CBC, MG, CMP ####[place] [address] WBC (Bld) [#/Vol] 13.7 10*3/uL High 4.1-10.5 [facility] Comment on above: Performed By: #### T RIG, SCAN CBC, MG, CMP ####[address] Triglyceride [Mass/volume] i n Serum or PlasmaOrdered By: Evi Gay on 11-18-2022 Triglyceride [Mass/Vol] 146 mg/dL 0-149 [facility] Comment on above: TRIG ATP III CLASSIF ICATIONTRIG less than 150 mg/dL NormalTRIG 150-199 mg/dL Borderline highTRIG 200-500 mg/dL High TRIG greater than 500 mg/dL Very highStandard traceable to the Center for Disease Conrtrol and Prevention (CDC) test method. Triglycerideson 11-18-2022 Triglyceride [Mass/Vol] 146 mg/dL Normal 0-149 [facility] Comment on above: Result Comment: TRIG ATP III CLASSIFICATION TRIG less than 150 mg/dL Normal TRIG 150-199 mg/dL Borderline high TRIG 200-500 mg/dL High TRIG greater than 500 mg/dL Very high Standard traceable to the Center for Disease Conrtrol and Prevention (CDC) test method.PERFORMED BY:[address], [place] [phone] MEDICAL DIRECTORNATI LAUREN M.D. Performed By: #### T RIG, SCAN CBC, MG, CMP ####[facility] [id number] [place] [address] [facility] XR chest 1V portableon 11-18 XR chest 1V portable Normal [facility] Aerobic Cultureon 11-17-2022 Aerobic Culture Normal [facility] Comment on above: Performed By: #### G S, AERC ####[facility] Nor[address] [place] [address] [facility] Amylaseon 11-17-2022 Amylase [Catalytic activity/Vol] 16 U/L Low [facility] Comment on above: Order Comment: Comme nt please run off blood drawn this morning Performed By: #### L IPASE, CATRACHITO, HEPATIC ####[place] [id number] [facility] Amylase [Enzymatic activity/ volume] in Serum or PlasmaOrdered By: Evi Gay on 11-17-2022 Amylase [Catalytic activity/Vol] 16 U/L [facility] Arterial Blood Gason 023 ABG Base Excess 9.9 mmol/L High -3.0-3.0 [facility] Comment on above: Performed By: #### A BG ####Point of Care testing, ABG Frac Inspired O2 30 % [facility] Comment on above: Performed By: #### A BG ####Point of Care testing, ABG Oxygen Content 5.9 mmol/L Low 6.6-9.7 [facility] Comment on above: Performed By: #### A BG ####Point of Care testing, ABG Oxygen Saturation 89.2 % Low 95.0-100.0 [facility] Comment on above: Performed By: #### A BG ####Point of Care testing, ABG PCO2 42.2 mm[Hg] Normal 35.0-45.0 [facility] Comment on above: Performed By: #### A BG ####Point of Care testing, ABG PEEP [address] [facility] Comment on above: Performed By: #### A BG ####Point of Care testing, ABG PH 7.52 High 7.35-7.45 [facility] Comment on above: Performed By: #### A BG ####Point of Care testing, ABG PO2 54.5 mm[Hg] Low 80.0-100.0 [facility] Comment on above: Performed By: #### A BG ####Point of Care testing, ABG TV [address] [facility] Comment on above: Performed By: #### A BG ####Point of Care testing, CO2 [Moles/Vol] 35.0 mmol/L High 23.0-27.0 [facility] Comment on above: Performed By: #### A BG ####Point of Care testing, HCO3 (Bld) [Moles/Vol] 33.7 mmol/L High 23.0-29.[address] [facility] Comment on above: Performed By: #### A BG ####Point of Care testing, Respiratory Critical [facility] Comment on above: Result Comment: Crit ical Value called on: 11/17/2022 at 04:38PERFORMED BY:[place] [address] [place], [place] [phone] MEDICAL DIRECTORNATI LAUREN M.D. Performed By: #### A BG ####Point of Care testing, Set Respiratory Rate 20 [facility] Comment on above: Performed By: #### A BG ####Point of Care testing, VBG Draw Site Right Radial [facility] Comment on above: Performed By: #### A BG ####Point of Care testing, Ventilator Mode AC [facility] Comment on above: Performed By: #### A BG ####Point of Care testing, Bacteria identified Aer cx N om (Unsp spec)Ordered By: Sanjay Holt on 11-17-2022 Aerobic Culture Corynebacterium stri atum group [facility] Bacterial blood cultureOrder ed By: Sanjay Holt on 11-17-2022 Bacteria identified Cx Nom (Bld) NO GROWTH 5 DAYS [facility] Basic Metabolic Panelon 11-07 Anion gap [Moles/Vol] 9.3 mmol/L Normal 6.0-15.0 [facility] Comment on above: Performed By: #### B YOSEPH, CBCNO ####[facility] [place] [address] [facility] Calcium [Mass/Vol] 7.8 mg/dL Low 8.6-10.3 [facility] Comment on above: Performed By: #### B YOSEPH, CBCNO ####[place] [address] [place] [address] [place] Chloride [Moles/Vol] 93 mmol/L Low 98-107 [facility] Comment on above: Performed By: #### B YOSEPH, CBCNO ####[place] [address] [place] [address] [facility] CO2 [Moles/Vol] 33.7 mmol/L High 21.0-31.0 [facility] Comment on above: Performed By: #### B YOSEPH, CBCNO ####[facility] [place] [address] [place] Creatinine [Mass/Vol] 0.50 mg/dL Low 0.70-1.30 [facility] Comment on above: Performed By: #### B YOSEPH, CBCNO ####[place] [address] [place] [address] [place] Creatinine Clr Calc Pharmacy 217.[address] [facility] Comment on above: Result Comment: PERF ORMED BY:[address] [place], [place] [phone] MEDICAL ALEKSANDAR LAUREN M.D. Performed By: #### B YOSEPH, CBCNO ####[facility] [id number] [place] [address] [place] GFR/1.73 sq M.predicted MDRD (S/P/Bld) [Vol rate/Area] mL/min/{1.73_m2} [facility] Comment on above: Performed By: #### B YOSEPH, CBCNO ####[facility] [place] [address] [facility] Glucose [Mass/Vol] 102 mg/dL High 70-100 [facility] Comment on above: Result Comment: [place] Glucose Reference Range is dependent on time and content of last meal. Glucose of more than 200 mg/dL in a nonstressed, ambulatory subject supports the diagnosis of Diabetes Mellitus. ADA recommended reference range Performed By: #### B YOSEPH, CBCNO ####[facility] [id number] [place] [id number] [facility] Potassium [Moles/Vol] 4.0 mmol/L Normal 3.5-5.1 [facility] Comment on above: Performed By: #### B YOSEPH CBCNO ####[place] [address] [place] [id number] [facility] Sodium [Moles/Vol] 132 mmol/L Low 136-145 [facility] Comment on above: Performed By: #### B YOSEPH CBCNO ####[place] [address] [place] [id number] [facility] Urea nitrogen [Mass/Vol] 23 mg/dL Normal 7-25 [facility] Comment on above: Performed By: #### B YOSEPH CBCNO ####[facility] [place] [address] [facility] Bilirubin.direct [Mass/volum e] in Serum or PlasmaOrdered By: Evi Gay on 11-17-2022 Bilirubin.direct [Mass/Vol] 0.30 mg/dL 0.03-0.18 [facility] Blood Cultureon 11-17-2022 Bacteria identified Cx Nom (Bld) Comment suctioned NO GROWTH 5 DAYS PERFORMED BY: [facility] [address] [place] [id number] PATHOLOGIST DATA TECHNICAL LEAD NATI LAUREN M.D. [facility] Comment on above: Performed By: #### C UBLD ####[place] [address] [place] [id number] [facility] Creatine Kinaseon 11-17-2022 CK [Catalytic activity/Vol] 70 U/L Normal 30-223 [facility] Comment on above: Order Comment: Comme nt has CVC LINE DRAW Performed By: #### H S TROP, CK ####[facility] [id number] [place] [address] [facility] Creatine kinase [Enzymatic a ctivity/volume] in Serum or PlasmaOrdered By: Evi Gay on 11-17-2022 CK [Catalytic activity/Vol] 70 U/L [facility] ECG 12 lead ECGon 11-17-2022 ECG 12 lead ECG Normal [facility] ECG 12 lead ECG Normal [facility] ECH echo transthoracicon ECH echo transthoracic Normal Fi [facility] Glucose Poct Glucometerson 0 11-17-2022 Commemt1 Glu2: Cleaned Meter Normal [facility] Comment on above: Result Comment: PERF ORMED BY:[facility] [place], [place] [phone] MEDICAL DIRECTORNATI LAUREN M.D. Performed By: #### G LULS ####Point of Care testing, Glucose [Mass/Vol] 106 mg/dL Normal [facility] Comment on above: Result Comment: [facility] Glucose Reference Range is dependent on time [...] Blood Cells Rare Epithelial Cells PERFORMED BY: [facility] [address] [place] [address] PATHOLOGIST DATA TECHNICAL LEAD NATI LAUREN M.D. Normal [facility] Comment on above: Performed By: #### G S, AERC ####[facility] [place] [address] [facility] Gram stain for investigation of transfusion reactionOrdered By: Sanjay Holt on 11-17-2022 Microscopic observation Gram stain Nom (Unsp spec) [facility] Hemogram CBC Without Diffon 11-17-2022 Erythrocyte distribution width (RBC) [Ratio] 13.7 % Normal 12.0-14.8 [facility] Comment on above: Performed By: #### B YOSEPH CBCNO ####[address] Hematocrit (Bld) [Volume fraction] 28.0 % Low 38.8-50.0 [facility] Comment on above: Performed By: #### B YOSEPH CBCNO ####[address] Hemoglobin (Bld) [Mass/Vol] 9.1 g/dL Low 13.0-17.0 [facility] Comment on above: Performed By: #### B YOSEPH CBCNO ####[address] MCH (RBC) [Entitic mass] 29.1 pg Normal 27.5-35.2 [facility] [facility] Comment on above: Performed By: #### B YOSEPH CBCNO ####[address] MCV (RBC) [Entitic vol] 89.7 fL Normal 83.5-101 [facility] Comment on above: Performed By: #### B YOSEPH CBCKRYSTIAN ####[address] Mean Corpuscular HGB Conc 32.4 g/dL Low 32.5-35.6 [facility] Comment on above: Performed By: #### B YOSEPH CBCNO ####[address] Platelet mean volume (Bld) [Entitic vol] 7.7 fL Normal 6.6-10.1 [facility] Comment on above: Result Comment: PERF ORMED BY:[address] [place], [place] [phone] MEDICAL DIRECTORNATI LAUREN M.D. Performed By: #### B YOSEPH CBCNO ####[place] [id number] [facility] Platelets (Bld) [#/Vol] 423 10*3/uL Normal 150-450 [facility] Comment on above: Performed By: #### B YOSEPH, CBCNO ####[place] [id number] [place] [id number] [facility] RBC (Bld) [#/Vol] 3.12 10*6/uL Low 3.90-5.60 [facility] Comment on above: Performed By: #### B YOSEPH, CBCNO ####[place] [id number] [place] [id number] [facility] WBC (Bld) [#/Vol] 20.5 10*3/uL High 4.1-10.5 [facility] Comment on above: Performed By: #### B YOSEPH, CBCNO ####[address] Hepatic Panelon 11-17-2022 Albumin [Mass/Vol] 2.4 g/dL Low 3.5-5.7 [facility] Comment on above: Order Comment: Comme nt please run off blood drawn this morning Performed By: #### L IPASE, CATRACHITO, HEPATIC ####[place] [id number] [facility] Albumin/Globulin [Mass ratio] 0.7 {ratio} Normal [facility] Comment on above: Order Comment: Comme nt please run off blood drawn this morning Performed By: #### L IPASE, CATRACHITO, HEPATIC ####[place] [id number] [facility] ALP [Catalytic activity/Vol] 170 U/L High 34-104 [facility] Comment on above: Order Comment: Comme nt please run off blood drawn this morning Performed By: #### L IPASE, CATRACHITO, HEPATIC ####[place] [id number] [facility] ALT [Catalytic activity/Vol] 64 U/L High 7-52 [facility] Comment on above: Order Comment: Comme nt please run off blood drawn this morning Performed By: #### L IPASE, CATRACHITO, HEPATIC ####[address] [place] [address] [facility] AST [Catalytic activity/Vol] 64 U/L High 13-39 [facility] Comment on above: Order Comment: Comme nt please run off blood drawn this morning Performed By: #### L IPASE, CATRACHITO, HEPATIC ####[address] [address] [facility] Bilirubin [Mass/Vol] 0.6 mg/dL Normal 0.3-1.0 [facility] Comment on above: Order Comment: Comme nt please run off blood drawn this morning Performed By: #### L IPASE, CATRACHITO, HEPATIC ####[address] [address] [facility] Bilirubin,Indirect 0.3 mg/dL Normal [facility] Comment on above: Order Comment: Comme nt please run off blood drawn this morning Performed By: #### L IPASE, CATRACHITO, HEPATIC ####[address] [address] [facility] Bilirubin.indirect [Mass/Vol] 0.30 mg/dL High 0.03-0.18 [facility] Comment on above: Order Comment: Comme nt please run off blood drawn this morning Performed By: #### L IPASE, CATRACHITO, HEPATIC ####[address] [address] [facility] Globulin (S) [Mass/Vol] 3.6 g/dL Normal [facility] Comment on above: Order Comment: Comme nt please run off blood drawn this morning Performed By: #### L IPASE, CATRACHITO, HEPATIC ####[address] [address] [facility] Protein [Mass/Vol] 6.0 g/dL Low 6.4-8.9 [facility] Comment on above: Order Comment: Comme nt please run off blood drawn this morning Performed By: #### L IPASE, CATRACHITO, HEPATIC ####[address] [address] [facility] Lipaseon 11-17-2022 Lipase [Catalytic activity/Vol] 12.0 U/L Normal 11.0-82.0 [facility] Comment on above: Order Comment: Comme nt please run off blood drawn this morning Result Comment: PERF ORMED BY:[place] [address] [place], [place] [phone] MEDICAL DIRECTORNATI LAUREN M.D. Performed By: #### L IPASE, CATRACHITO, HEPATIC ####[place] [address] [place] [address] [facility] Lipase [Enzymatic activity/v olume] in Serum or PlasmaOrdered By: Evi Gay on 11-17-2022 Lipase [Catalytic activity/Vol] 12.0 U/L 11.0-82.0 [facility] Magnesiumon 11-17-2022 Magnesium [Mass/Vol] 1.9 mg/dL Normal 1.9-2.7 [facility] Comment on above: Result Comment: PERF ORMED BY:[address] [place] [address] [place], [place] [phone] MEDICAL DIRECTORNATI LAUREN M.D. Performed By: #### M G ####[address] [address] [facility] No Panel InformationOrdered By: Shant Villegas on 11-17-2022 Bedside Glucose Comment Glu2: cleaned meter [facility] Serum or plasma non-glucuron idated bilirubin measurement (mass/volume)Ordered By: Evi Gay on 11-17-2022 Bilirubin.indirect [Mass/Vol] 0.3 mg/dL [facility] Thyroid Stimulating Hormoneo n 11-17-2022 TSH Qn 9.27 m[IU]/L High 0.45-5.33 [facility] Comment on above: Order Comment: Comme nt please run off blood drawn today Result Comment: PERF ORMED BY:[address] [place] [address] [place], [place] [phone] MEDICAL ALEKSANDAR LAUREN M.D. Performed By: #### T SH3 ####[address] [address] [facility] Thyrotropin [Units/volume] i n Serum or PlasmaOrdered By: Evi Gay on 11-17-2022 TSH Qn 9.27 m[IU]/L 0.45-5.33 [facility] Troponin I High Sensitivityo n 11-17-2022 Troponin I High Sensitivity 24.1 pg/mL High 0.0-20.0 [facility] Comment on above: Order Comment: Kirsty nt has CVC LINE DRAW Result Comment: PERF ORMED BY:[facility] [place], [place] [phone] MEDICAL DIRECTORNATI LAUREN M.D. Performed By: #### H S TROP, CK ####[facility] [place] [address] [facility] Troponin I.cardiac [Mass/vol ume] in Serum or Plasma by Detection limit <= 0.01 ng/Ordered By: Evi Gay on 11-17-2022 Troponin I.cardiac DL <= 0.01 ng/mL [Mass/Vol] 24.1 pg/mL 0.0-20.0 [facility] XR chest 1V portableon 11-17 XR chest 1V portable Normal [facility] Arterial Blood Gason 023 ABG Base Excess 10.9 mmol/L High -3.0-3.0 [facility] Comment on above: Performed By: #### A BG ####Point of Care testing, ABG Frac Inspired O2 50 % [facility] Comment on above: Performed By: #### A BG ####Point of Care testing, ABG Oxygen Content 6.1 mmol/L Low 6.6-9.7 [facility] Comment on above: Performed By: #### A BG ####Point of Care testing, ABG Oxygen Saturation 94.7 % Low 95.0-100.0 [facility] Comment on above: Performed By: #### A BG ####Point of Care testing, ABG PCO2 43.6 mm[Hg] Normal 35.0-45.0 [facility] Comment on above: Performed By: #### A BG ####Point of Care testing, ABG PEEP [address] [facility] Comment on above: Performed By: #### A BG ####Point of Care testing, ABG PH 7.52 High 7.35-7.45 [facility] Comment on above: Performed By: #### A BG ####Point of Care testing, ABG PO2 71.3 mm[Hg] Low 80.0-100.0 [facility] Comment on above: Performed By: #### A BG ####Point of Care testing, ABG TV [address] [facility] Comment on above: Performed By: #### A BG ####Point of Care testing, CO2 [Moles/Vol] 36.1 mmol/L High 23.0-27.0 [facility] Comment on above: Performed By: #### A BG ####Point of Care testing, HCO3 (Bld) [Moles/Vol] 34.8 mmol/L High 23.0-29.[address] [facility] Comment on above: Performed By: #### A BG ####Point of Care testing, Respiratory Critical [facility] Comment on above: Result Comment: Crit ical Value called on: 11/16/2022 at 04:35PERFORMED BY:[place] [id number] [place], [place] [phone] MEDICAL DIRECTORNATI LAUREN M.D. Performed By: #### A BG ####Point of Care testing, Set Respiratory Rate 20 [facility] Comment on above: Performed By: #### A BG ####Point of Care testing, VBG Draw Site Left Radial [facility] Comment on above: Performed By: #### A BG ####Point of Care testing, Ventilator Mode AC [facility] Comment on above: Performed By: #### A BG ####Point of Care testing, Automated erythrocytes count in urine sediment (number/area)Ordered By: Sanjay Holt on 11-16-2022 RBC Auto (Urine sed) [#/Area] 50-100 [HPF] 0-4 [facility] Automated leukocytes count i n urine sediment (number/area)Ordered By: Sanjay Holt on 11-16-2022 WBC Auto (Urine sed) [#/Area] 3-4 [HPF] 0-4 [facility] Basic Metabolic Panelon 11-07 Anion gap [Moles/Vol] 8.6 mmol/L Normal 6.0-15.0 [facility] Comment on above: Performed By: #### B YOSEPH, TRIG ####[facility] [place] [address] [place] Calcium [Mass/Vol] 7.5 mg/dL Low 8.6-10.3 [facility] Comment on above: Performed By: #### B YOSEPH, TRIG ####[place] [address] [place] [address] [place] Chloride [Moles/Vol] 90 mmol/L Low 98-107 [facility] Comment on above: Performed By: #### B YOSEPH, TRIG ####[place] [address] [place] [address] [place] CO2 [Moles/Vol] 36.7 mmol/L High 21.0-31.0 [facility] Comment on above: Performed By: #### B YOSEPH, TRIG ####[place] [address] [place] [address] [place] Creatinine [Mass/Vol] 0.65 mg/dL Low 0.70-1.30 [facility] Comment on above: Performed By: #### B YOSEPH, TRIG ####[place] [address] [place] [address] [place] Creatinine Clr Calc Pharmacy 167.[address] [facility] Comment on above: Performed By: #### B YOSEPH, TRIG ####[facility] [place] [address] [place] GFR/1.73 sq M.predicted MDRD (S/P/Bld) [Vol rate/Area] mL/min/{1.73_m2} [facility] Comment on above: Performed By: #### Mary HAMEED, TRIG ####[place] [address] [place] [address] [place] Glucose [Mass/Vol] 106 mg/dL High 70-100 [facility] Comment on above: Result Comment: [place] Glucose Reference Range is dependent on time and content of last meal. Glucose of more than 200 mg/dL in a nonstressed, ambulatory subject supports the diagnosis of Diabetes Mellitus. ADA recommended reference range Performed By: #### B MP, TRIG ####[facility] [place] [address] [facility] Potassium [Moles/Vol] 4.3 mmol/L Normal 3.5-5.1 [facility] Comment on above: Performed By: #### B MP, TRIG ####[facility] [place] [address] [facility] Sodium [Moles/Vol] 131 mmol/L Low 136-145 [facility] Comment on above: Performed By: #### B MP, TRIG ####[place] [address] [place] [address] [facility] Urea nitrogen [Mass/Vol] 32 mg/dL High 7-25 [facility] Comment on above: Performed By: #### B MP, TRIG ####[place] [address] [place] [address] [facility] Bilirubin Test strip Ql (U)O rdered By: Sanjay Holt on 11-16-2022 Bilirubin Ql (U) Negative Negative [facility] Blood Cultureon 11-16-2022 Bacteria identified Cx Nom (Bld) NO GROWTH 5 DAYS PERFORMED BY: [facility] [address] [place] [address] PATHOLOGIST DATA TECHNICAL LEAD NATI LAUREN M.D. [facility] Comment on above: Performed By: #### C UBLD ####[place] [address] [place] [address] [facility] Bacteria identified Cx Nom (Bld) NO GROWTH 5 DAYS PERFORMED BY: [facility] [address] [facility] [place] [address] PATHOLOGIST DATA TECHNICAL LEAD NATI LAUREN M.D. [facility] Comment on above: Performed By: #### C UBLD ####[address] [address] [facility] CT angio chest PE protocolon 11-16-2022 CT angio chest PE protocol Normal [facility] Color Auto (U)Ordered By: Stephanie Holt on 11-16-2022 Color (U) Dark yellow Yellow [facility] Dipstick and Microscopicon 0 11-16-2022 Appearance (U) Clear Normal Clear [facility] Comment on above: Order Comment: Name Collection Type:: Earl Catheter Performed By: #### C UU, ADDONUAPLUS ####[address] [address] [facility] Bacteria,Urine None Seen Normal None Seen [facility] Comment on above: Order Comment: Name Collection Type:: Earl Catheter Performed By: #### C UU, ADDONUAPLUS ####[address] [address] [facility] Bilirubin,Urine Negative Normal Negative [facility] Comment on above: Order Comment: Name Collection Type:: Earl Catheter Performed By: #### C UU, ADDONUAPLUS ####[address] [address] [facility] Color (U) Dark Yellow Critically abnormal Yellow [facility] Comment on above: Order Comment: Name Collection Type:: Earl Catheter Performed By: #### C UU, ADDONUAPLUS ####[address] [address] [facility] Glucose Ql (U) Normal Normal Normal [facility] Comment on above: Order Comment: Name Collection Type:: Earl Catheter Performed By: #### C UU, ADDONUAPLUS ####[address] [address] [facility] Hyaline Casts,Urine 0-8 Normal 0-8 [facility] Comment on above: Order Comment: Name Collection Type:: Earl Catheter Result Comment: PERF ORMED BY:[address] [place], [place] [phone] MEDICAL ALEKSANDAR LAUREN M.D. Performed By: #### C UU, ADDONUAPLUS ####[address] [address] [facility] Ketones Ql (U) Negative Normal Negative [facility] Comment on above: Order Comment: Name Collection Type:: Earl Catheter Performed By: #### C UU, ADDONUAPLUS ####[address] [address] [facility] Leukocyte esterase Test strip Ql (U) 1+ High Negative [facility] Comment on above: Order Comment: Name Collection Type:: Earl Catheter Performed By: #### C UU, ADDONUAPLUS ####[address] [address] [facility] Nitrite,Urine Negative Normal Negative [facility] Comment on above: Order Comment: Name Collection Type:: Earl Catheter Performed By: #### C UU, ADDONUAPLUS ####[address] [address] [facility] Occult Blood,Urine 1+ High Negative [facility] Comment on above: Order Comment: Name Collection Type:: Earl Catheter Result Comment: PERF ORMED BY:[address] [place], [place] [phone] MEDICAL ALEKSANDAR LAUREN M.D. Performed By: #### C UU, ADDONUAPLUS ####[address] [address] [facility] pH (U) 5.5 [pH] Normal 5.0-9.0 [facility] Comment on above: Order Comment: Name Collection Type:: Earl Catheter Performed By: #### C UU, ADDONUAPLUS ####[address] [address] [facility] Protein,Urine Trace High Negative [facility] Comment on above: Order Comment: Name Collection Type:: Earl Catheter Performed By: #### C UU, ADDONUAPLUS ####[address] [address] [facility] RBC,Urine 50-100 High 0-4 [facility] Comment on above: Order Comment: Name Collection Type:: Earl Catheter Performed By: #### C UU, ADDONUAPLUS ####[place] [place] [address] [facility] Specificy [place],Urine 1.022 Normal 1.001-1.03 0 [facility] Comment on above: Order Comment: Name Collection Type:: Earl Catheter Performed By: #### C UU, ADDONUAPLUS ####[address] [address] [facility] Squamous Epithelial Cell,Urine None Seen Normal 0-2 [facility] Comment on above: Order Comment: Name Collection Type:: Earl Catheter Performed By: #### C UU, ADDONUAPLUS ####[address] [address] [facility] Urobilinogen,Urine Normal Normal Normal [facility] Comment on above: Order Comment: Name Collection Type:: Earl Catheter Performed By: #### C UU, ADDONUAPLUS ####[address] [address] [facility] WBC,Urine 3-4 Normal 0-4 [facility] Comment on above: Order Comment: Name Collection Type:: Earl Catheter Performed By: #### C UU, ADDONUAPLUS ####[address] [address] [facility] Glucose Poct Glucometerson 0 11-16-2022 Commemt1 Glu2: Cleaned Meter Normal [facility] Comment on above: Result Comment: PERF ORMED BY:[address] [place], [place] [phone] MEDICAL DIRECTORNATI LAUREN M.D. Performed By: #### G LULS ####Point of Care testing, Glucose [Mass/Vol] 101 mg/dL Normal [facility] Comment on above: Result Comment: [facility] Glucose Reference Range is dependent on time [...] LM Ql (Urine sed) 0-8 [LPF] 0-8 [facility] Nitrite Test strip Ql (U)Ord ered By: Sanjay Holt on 11-16-2022 Nitrite Ql (U) Negative Negative [facility] Protein Auto test strip (U) [Mass/Vol]Ordered By: Sanjay Holt on 11-16-2022 Protein (U) [Mass/Vol] Trace mg/dL Negative F [facility] Red blood cell stomatocyte d etectionOrdered By: Reginald Arroyo on 11-16-2022 Stomatocytes LM Ql (Bld) Slight [facility] Scan and CBCon 11-16-2022 Basophils (Bld) [#/Vol] 0.2 10*3/uL Normal 0.0-0.2 [facility] Comment on above: Performed By: #### S CAN CBC ####[address] Basophils/100 WBC (Bld) 0.7 % Normal . [facility] Comment on above: Performed By: #### S CAN CBC ####[address] Eosinophils (Bld) [#/Vol] 0.2 10*3/uL Normal 0.0-0.45 [facility] Comment on above: Performed By: #### S CAN CBC ####[address] Eosinophils/100 WBC (Bld) 0.8 % Normal . [facility] Comment on above: Performed By: #### S CAN CBC ####[address] Erythrocyte distribution width (RBC) [Ratio] 13.7 % Normal 12.0-14.8 [facility] Comment on above: Performed By: #### S CAN CBC ####[address] Hematocrit (Bld) [Volume fraction] 26.4 % Low 38.8-50.0 [facility] Comment on above: Performed By: #### S CAN CBC ####[address] Hemoglobin (Bld) [Mass/Vol] 8.6 g/dL Low 13.0-17.0 [facility] Comment on above: Performed By: #### S CAN CBC ####[address] Hypochromasia Moderate Normal [facility] Comment on above: Performed By: #### S CAN CBC ####[address] Lymphocytes (Bld) [#/Vol] 1.9 10*3/uL Normal 1.00-4.8 [facility] Comment on above: Performed By: #### S CAN CBC ####[address] Lymphocytes/100 WBC (Bld) 7.8 % Normal . [facility] Comment on above: Performed By: #### S CAN CBC ####[address] MCH (RBC) [Entitic mass] 29.0 pg Normal 27.5-35.2 [facility] Comment on above: Performed By: #### S CAN CBC ####[address] MCV (RBC) [Entitic vol] 89.5 fL Normal 83.5-101 [facility] Comment on above: Performed By: #### S CAN CBC ####[address] Mean Corpuscular HGB Conc 32.4 g/dL Low 32.5-35.6 [facility] Comment on above: Performed By: #### S CAN CBC ####[address] Monocytes (Bld) [#/Vol] 2.3 10*3/uL High 0.0-0.8 [facility] Comment on above: Performed By: #### S CAN CBC ####[address] [place] [address] [facility] Monocytes/100 WBC (Bld) 9.4 % Normal . [facility] Comment on above: Performed By: #### S CAN CBC ####[address] [address] [facility] Neutrophils (Bld) [#/Vol] 19.7 10*3/uL High 1.8-7.7 [facility] Comment on above: Performed By: #### S CAN CBC ####[address] [address] [facility] Neutrophils/100 WBC (Bld) 81.3 % Normal . [facility] Comment on above: Performed By: #### S CAN CBC ####[address] [address] [facility] NRBC% 0.0 /100{WBC} Normal 0-0.5 [facility] Comment on above: Performed By: #### S CAN CBC ####[address] [address] [facility] Platelet Estimate Normal Normal Normal [facility] Comment on above: Performed By: #### S CAN CBC ####[address] [address] [facility] Platelet mean volume (Bld) [Entitic vol] 7.8 fL Normal 6.6-10.1 [facility] Comment on above: Performed By: #### S CAN CBC ####[address] [address] [facility] Platelet Morphology Normal Normal Normal [facility] Comment on above: Result Comment: PERF ORMED BY:[address] [place], [place] [phone] MEDICAL ALEKSANDAR LAUREN M.D. Performed By: #### S CAN CBC ####[address] [address] [facility] Platelets (Bld) [#/Vol] 369 10*3/uL Normal 150-450 [facility] Comment on above: Performed By: #### S CAN CBC ####[facility] [place] [address] [facility] Polychromasia Slight Normal [facility] Comment on above: Performed By: #### S CAN CBC ####[address] [place] [address] [facility] RBC (Bld) [#/Vol] 2.95 10*6/uL Low 3.90-5.60 [facility] Comment on above: Performed By: #### S CAN CBC ####[address] [place] [address] [facility] Stomatocytes Slight Normal [facility] Comment on above: Performed By: #### S CAN CBC ####[place] [place] [id number] [facility] WBC (Bld) [#/Vol] 24.2 10*3/uL High 4.1-10.5 [facility] Comment on above: Performed By: #### S CAN CBC ####[place] [id number] [facility] Specific gravity Auto test s trip (U) [Rel density]Ordered By: Sanjay Holt on 11-16-2022 Specific gravity (U) [Rel density] 1.022 1.001-1.03 0 [facility] Squamous epithelial cells de tection in urine sediment by light microscopyOrdered By: Sanjay Holt on 11-16-2022 Epithelial cells.squamous LM Ql (Urine sed) None seen [HPF] 0-2 [facility] Triglycerideson 11-16-2022 Triglyceride [Mass/Vol] 109 mg/dL Normal 0-149 [facility] Comment on above: Result Comment: TRIG ATP III CLASSIFICATION TRIG less than 150 mg/dL Normal TRIG 150-199 mg/dL Borderline high TRIG 200-500 mg/dL High TRIG greater than 500 mg/dL Very high Standard traceable to the Center for Disease Conrtrol and Prevention (CDC) test method.PERFORMED BY:[address] [place], [place] [phone] MEDICAL DIRECTORNATI LAUREN M.D. Performed By: #### B MP, TRIG ####[facility] [id number] [place] [id number] [facility] Urine Cultureon 11-16-2022 Bacteria identified Cx Nom (U) No Growth 2 Days PERFORMED BY: [facility] [address] [place] [id number] PATHOLOGIST DATA TECHNICAL LEAD NATI LAUREN M.D. [facility] Comment on above: Performed By: #### C UU, ADDONUAPLUS ####[facility] [id number] [place] [address] [facility] Urine bacteria detection by automated methodOrdered By: Sanjay Holt on 11-16-2022 Bacteria Auto Ql (U) None seen None Seen [facility] Urine clarity by refractomet ry automatedOrdered By: Sanjay Holt on 11-16-2022 Clarity Refractometry automated (U) Clear Clear [facility] Urine culture routineOrdered By: Sanjay Holt on 11-16-2022 Bacteria identified Cx Nom (U) No Growth 2 Days [facility] Urine glucose measurement by automated test strip (mass/volume)Ordered By: Sanjay Holt on 11-16-2022 Glucose Auto test strip (U) [Mass/Vol] Normal mg/dL Normal [facility] Urine hemoglobin detection b y automated test stripOrdered By: Sanjay Holt on 11-16-2022 Hemoglobin Auto test strip Ql (U) 1+ Negative [facility] Urine leukocyte esterase det ection by automated test stripOrdered By: Sanjay Holt on 11-16-2022 Leukocyte esterase Auto test strip Ql (U) 1+ Negative [facility] Urobilinogen Auto test strip (U) [Mass/Vol]Ordered By: Sanjay Holt on 11-16-2022 Urobilinogen (U) [Mass/Vol] Normal mg/dL Normal [facility] XR chest 1V portableon 11-16 XR chest 1V portable Normal [facility] pH Auto test strip (U)Ordere d By: Sanjay Holt on 11-16-2022 pH (U) 5.5 [pH] 5.0-9.0 [facility] Arterial Blood Gason 05-09-2 023 ABG Base Excess 9.5 mmol/L High -3.0-3.0 [facility] Comment on above: Performed By: #### A BG ####Point of Care testing, ABG Frac Inspired O2 80 % [facility] Comment on above: Performed By: #### A BG ####Point of Care testing, ABG Oxygen Content 7.0 mmol/L Normal 6.6-9.7 [facility] Comment on above: Performed By: #### A BG ####Point of Care testing, ABG Oxygen Saturation 97.2 % Normal 95.0-100.0 [facility] Comment on above: Performed By: #### A BG ####Point of Care testing, ABG PCO2 45.9 mm[Hg] High 35.0-45.0 [facility] Comment on above: Performed By: #### A BG ####Point of Care testing, ABG PEEP [address] [facility] Comment on above: Performed By: #### A BG ####Point of Care testing, ABG PH 7.49 High 7.35-7.45 [facility] Comment on above: Performed By: #### A BG ####Point of Care testing, ABG PO2 92.1 mm[Hg] Normal 80.0-100.0 [facility] Comment on above: Performed By: #### A BG ####Point of Care testing, ABG TV [address] [facility] Comment on above: Performed By: #### A BG ####Point of Care testing, CO2 [Moles/Vol] 35.4 mmol/L High 23.0-27.0 [facility] Comment on above: Performed By: #### A BG ####Point of Care testing, HCO3 (Bld) [Moles/Vol] 34.0 mmol/L High 23.0-29.[address] [facility] Comment on above: Performed By: #### A BG ####Point of Care testing, Respiratory Critical [facility] Comment on above: Result Comment: Crit ical Value called on: 11/15/2022 at 05:48PERFORMED BY:[facility] [place], [place] [phone] MEDICAL DIRECTORNATI LAUREN M.D. Performed By: #### A BG ####Point of Care testing, Set Respiratory Rate 20 [facility] Comment on above: Performed By: #### A BG ####Point of Care testing, VBG Draw Site Left Radial [facility] Comment on above: Performed By: #### A BG ####Point of Care testing, Ventilator Mode AC [facility] Comment on above: Performed By: #### A BG ####Point of Care testing, Basic Metabolic Panelon Anion gap [Moles/Vol] 8.4 mmol/L Normal 6.0-15.0 [facility] Comment on above: Performed By: #### S CAN CBC, BMP ####[address] [place] [address] [facility] Calcium [Mass/Vol] 7.8 mg/dL Low 8.6-10.3 [facility] Comment on above: Performed By: #### S CAN CBC, BMP ####[facility] [place] [address] [place] Chloride [Moles/Vol] 90 mmol/L Low 98-107 [facility] Comment on above: Performed By: #### S CAN CBC, BMP ####[facility] [place] [address] [place] CO2 [Moles/Vol] 35.9 mmol/L High 21.0-31.0 [facility] Comment on above: Performed By: #### S CAN CBC, BMP ####[facility] [address] [place] [address] [place] Creatinine [Mass/Vol] 0.57 mg/dL Low 0.70-1.30 [facility] Comment on above: Performed By: #### S CAN CBC, BMP ####[facility] [id number] [place] [address] [place] Creatinine Clr Calc Pharmacy 191.[address] [facility] Comment on above: Result Comment: PERF ORMED BY:[address] [place], [place] [phone] MEDICAL DIRECTORNATI LAUREN M.D. Performed By: #### S CAN CBC, BMP ####[facility] [address] [place] [address] [facility] GFR/1.73 sq M.predicted MDRD (S/P/Bld) [Vol rate/Area] mL/min/{1.73_m2} [facility] Comment on above: Performed By: #### S CAN CBC, BMP ####[address] [place] [address] [facility] Glucose [Mass/Vol] 126 mg/dL High 70-100 [facility] Comment on above: Result Comment: [facility] Glucose Reference Range is dependent on time and content of last meal. Glucose of more than 200 mg/dL in a nonstressed, ambulatory subject supports the diagnosis of Diabetes Mellitus. ADA recommended reference range Performed By: #### S CAN CBC, BMP ####[address] [place] [address] [facility] Potassium [Moles/Vol] 4.3 mmol/L Normal 3.5-5.1 [facility] Comment on above: Performed By: #### S CAN CBC, BMP ####[address] [place] [address] [facility] Sodium [Moles/Vol] 130 mmol/L Low 136-145 [facility] Comment on above: Performed By: #### S CAN CBC, BMP ####[facility] [place] [address] [facility] Urea nitrogen [Mass/Vol] 28 mg/dL High 7-25 [facility] Comment on above: Performed By: #### S CAN CBC, BMP ####[address] [place] [address] [place] Scan and CBCon 11-15-2022 Basophils (Bld) [#/Vol] 0.0 10*3/uL Normal 0.0-0.2 [facility] Comment on above: Performed By: #### S CAN CBC, BMP ####[place] [id number] [facility] Basophils/100 WBC (Bld) 0.1 % Normal . [facility] Comment on above: Performed By: #### S CAN CBC, BMP ####[id number] [facility] Eosinophils (Bld) [#/Vol] 0.2 10*3/uL Normal 0.0-0.45 [facility] Comment on above: Performed By: #### S CAN CBC, BMP ####[place] [id number] [facility] Eosinophils/100 WBC (Bld) 1.0 % Normal . [facility] Comment on above: Performed By: #### S CAN CBC, BMP ####[address] Erythrocyte distribution width (RBC) [Ratio] 13.7 % Normal 12.0-14.8 [facility] Comment on above: Performed By: #### S CAN CBC, BMP ####[address] Hematocrit (Bld) [Volume fraction] 30.3 % Low 38.8-50.0 [facility] Comment on above: Performed By: #### S CAN CBC, BMP ####[place] [id number] [facility] Hemoglobin (Bld) [Mass/Vol] 10.1 g/dL Low 13.0-17.0 [facility] Comment on above: Performed By: #### S CAN CBC, BMP ####[id number] [facility] Hypochromasia Moderate Normal [facility] Comment on above: Performed By: #### S CAN CBC, BMP ####[address] [id number] [facility] Lymphocytes (Bld) [#/Vol] 1.9 10*3/uL Normal 1.00-4.8 [facility] Comment on above: Performed By: #### S CAN CBC, BMP ####[place] [id number] [facility] Lymphocytes/100 WBC (Bld) 7.8 % Normal . [facility] Comment on above: Performed By: #### S CAN CBC, BMP ####[address] [address] [facility] MCH (RBC) [Entitic mass] 29.9 pg Normal 27.5-35.2 [facility] Comment on above: Performed By: #### S CAN CBC, BMP ####[place] [id number] [facility] MCV (RBC) [Entitic vol] 89.5 fL Normal 83.5-101 [facility] Comment on above: Performed By: #### S CAN CBC, BMP ####[address] Mean Corpuscular HGB Conc 33.4 g/dL Normal 32.5-35.6 [facility] Comment on above: Performed By: #### S CAN CBC, BMP ####[address] [address] [place] Monocytes (Bld) [#/Vol] 2.4 10*3/uL High 0.0-0.8 [facility] Comment on above: Performed By: #### S CAN CBC, BMP ####[address] [id number] [facility] Monocytes/100 WBC (Bld) 9.7 % Normal . [facility] Comment on above: Performed By: #### S CAN CBC, BMP ####[address] [address] [facility] Neutrophils (Bld) [#/Vol] 20.4 10*3/uL High 1.8-7.7 [facility] Comment on above: Performed By: #### S CAN CBC, BMP ####[address] [id number] [facility] Neutrophils/100 WBC (Bld) 81.4 % Normal . [facility] Comment on above: Performed By: #### S CAN CBC, BMP ####[address] [address] [facility] NRBC% 0.0 /100{WBC} Normal 0-0.5 [facility] Comment on above: Performed By: #### S CAN CBC, BMP ####[address] [address] [facility] Platelet Estimate Normal Normal Normal [facility] Comment on above: Performed By: #### S CAN CBC, BMP ####[address] [address] [facility] Platelet mean volume (Bld) [Entitic vol] 7.7 fL Normal 6.6-10.1 [facility] Comment on above: Performed By: #### S CAN CBC, BMP ####[address] [address] [facility] Platelet Morphology Normal Normal Normal [facility] Comment on above: Result Comment: PERF ORMED BY:[address] [place], [place] [phone] MEDICAL ALEKSANDAR LAUREN M.D. Performed By: #### S CAN CBC, BMP ####[address] [address] [facility] Platelets (Bld) [#/Vol] 381 10*3/uL Normal 150-450 [facility] Comment on above: Performed By: #### S CAN CBC, BMP ####[address] [address] [facility] Polychromasia Slight Normal [facility] Comment on above: Performed By: #### S CAN CBC, BMP ####[address] [address] [facility] RBC (Bld) [#/Vol] 3.39 10*6/uL Low 3.90-5.60 [facility] Comment on above: Performed By: #### S CAN CBC, BMP ####[address] [address] [facility] Stomatocytes Slight Normal [facility] Comment on above: Performed By: #### S CAN CBC, BMP ####[address] [place] [id number] [facility] Toxic Vacuolation Slight Normal [facility] Comment on above: Performed By: #### S CAN CBC, BMP ####[address] [place] [id number] [facility] WBC (Bld) [#/Vol] 25.0 10*3/uL High 4.1-10.5 [facility] Comment on above: Performed By: #### S CAN CBC, BMP ####[address] [id number] [facility] Toxic leukocyte vacuolation detectionOrdered By: Reginald Arroyo on 11-15-2022 Leukocyte toxic vacuoles LM Ql (Bld) Slight [facility] XR chest 1V portableon 11-15 XR chest 1V portable Normal [facility] AFB Specimen Processingon AFB Specimen Processing [facility] Comment on above: Performed By: #### A FBCS RES1, MYC CULT ####[facility] ,#### FS ####[address] Anisocytosis LM Ql (Bld)Orde red By: Reginald Arroyo on 11-14-2022 Anisocytosis Ql (Bld) Slight [facility] Arterial Blood Gason 023 ABG Base Excess 8.5 mmol/L High -3.0-3.0 [facility] Comment on above: Performed By: #### A BG ####Point of Care testing, ABG Frac Inspired O2 85 % Normal [facility] Comment on above: Performed By: #### A BG ####Point of Care testing, ABG Oxygen Content 7.2 mmol/L Normal 6.6-9.7 [facility] Comment on above: Performed By: #### A BG ####Point of Care testing, ABG Oxygen Saturation 93.3 % Low 95.0-100.0 [facility] Comment on above: Performed By: #### A BG ####Point of Care testing, ABG PCO2 47.2 mm[Hg] High 35.0-45.0 [facility] Comment on above: Performed By: #### A BG ####Point of Care testing, ABG PEEP [address] [facility] Comment on above: Performed By: #### A BG ####Point of Care testing, ABG PH 7.47 High 7.35-7.45 [facility] Comment on above: Performed By: #### A BG ####Point of Care testing, ABG PO2 68.0 mm[Hg] Low 80.0-100.0 [facility] Comment on above: Performed By: #### A BG ####Point of Care testing, ABG TV [address] [facility] Comment on above: Performed By: #### A BG ####Point of Care testing, CO2 [Moles/Vol] 34.8 mmol/L High 23.0-27.0 [facility] Comment on above: Performed By: #### A BG ####Point of Care testing, HCO3 (Bld) [Moles/Vol] 33.3 mmol/L High 23.0-29.[address] [facility] Comment on above: Performed By: #### A BG ####Point of Care testing, Respiratory Critical [facility] Comment on above: Result Comment: Crit ical Value called on: 11/14/2022 at 04:56PERFORMED BY:[address] [place], [place] [phone] MEDICAL DIRECTORNATI LAUREN M.D. Performed By: #### A BG ####Point of Care testing, Set Respiratory Rate 20 [facility] Comment on above: Performed By: #### A BG ####Point of Care testing, VBG Draw Site Left Radial [facility] Comment on above: Performed By: #### A BG ####Point of Care testing, Ventilator Mode AC [facility] Comment on above: Performed By: #### A BG ####Point of Care testing, Basic Metabolic Panelon 05-0 Anion gap [Moles/Vol] 11.5 mmol/L Normal 6.0-15.0 [facility] Comment on above: Performed By: #### D IFF CBC, BMP ####[facility] [place] [address] [facility] Calcium [Mass/Vol] 7.8 mg/dL Low 8.6-10.3 [facility] Comment on above: Performed By: #### D IFF CBC, BMP ####[address] [place] [address] [facility] Chloride [Moles/Vol] 91 mmol/L Low 98-107 [facility] Comment on above: Performed By: #### D IFF CBC, BMP ####[address] [place] [address] [facility] CO2 [Moles/Vol] 32.8 mmol/L High 21.0-31.0 [facility] Comment on above: Performed By: #### D IFF CBC, BMP ####[address] [place] [address] [facility] Creatinine [Mass/Vol] 0.59 mg/dL Low 0.70-1.30 [facility] Comment on above: Performed By: #### D IFF CBC, BMP ####[address] [place] [address] [place] Creatinine Clr Calc Pharmacy 186.[address] [facility] Comment on above: Result Comment: PERF ORMED BY:[address] [place], [place] [phone] MEDICAL DIRECTORNATI LAUREN M.D. Performed By: #### D IFF CBC, BMP ####[address] [place] [address] [place] GFR/1.73 sq M.predicted MDRD (S/P/Bld) [Vol rate/Area] mL/min/{1.73_m2} [facility] Comment on above: Performed By: #### D IFF CBC, BMP ####[address] [place] [id number] [facility] Glucose [Mass/Vol] 105 mg/dL High 70-100 [facility] Comment on above: Result Comment: [facility] Glucose Reference Range is dependent on time and content of last meal. Glucose of more than 200 mg/dL in a nonstressed, ambulatory subject supports the diagnosis of Diabetes Mellitus. ADA recommended reference range Performed By: #### D IFF CBC, BMP ####[address] [id number] [facility] Potassium [Moles/Vol] 4.3 mmol/L Normal 3.5-5.1 [facility] Comment on above: Performed By: #### D IFF CBC, BMP ####[address] Sodium [Moles/Vol] 131 mmol/L Significant change down 136-145 [facility] Comment on above: Performed By: #### D IFF CBC, BMP ####[address] [id number] [facility] Urea nitrogen [Mass/Vol] 22 mg/dL Normal 7-25 [facility] Comment on above: Performed By: #### D IFF CBC, BMP ####[address] [id number] [facility] Bronch Cultureon 11-14-2022 Bronch Culture Normal [facility] Comment on above: Performed By: #### C UBR, ####[place] [id number] [facility] Diff and CBCon 11-14-2022 Anisocytosis Ql (Bld) Slight Normal [facility] Comment on above: Performed By: #### D IFF CBC, BMP ####[address] [id number] [facility] Eosinophils/100 WBC (Bld) 2 % Normal 1-3 [facility] Comment on above: Performed By: #### D IFF CBC, BMP ####[address] [id number] [facility] Erythrocyte distribution width (RBC) [Ratio] 13.7 % Normal 12.0-14.8 [facility] Comment on above: Performed By: #### D IFF CBC, BMP ####[address] Hematocrit (Bld) [Volume fraction] 34.1 % Low 38.8-50.0 [facility] Comment on above: Performed By: #### D IFF CBC, BMP ####[address] Hemoglobin (Bld) [Mass/Vol] 11.6 g/dL Low 13.0-17.0 [facility] Comment on above: Performed By: #### D IFF CBC, BMP ####[address] Hypochromasia Slight Normal [facility] Comment on above: Performed By: #### D IFF CBC, BMP ####[address] Lymphocytes/100 WBC (Bld) 9 % Low 18-42 [facility] Comment on above: Performed By: #### D IFF CBC, BMP ####[address] MCH (RBC) [Entitic mass] 30.3 pg Normal 27.5-35.2 [facility] Comment on above: Performed By: #### D IFF CBC, BMP ####[address] MCV (RBC) [Entitic vol] 89.3 fL Normal 83.5-101 [facility] Comment on above: Performed By: #### D IFF CBC, BMP ####[address] Mean Corpuscular HGB Conc 33.9 g/dL Normal 32.5-35.6 [facility] Comment on above: Performed By: #### D IFF CBC, BMP ####[address] Metamyelocytes 2 % High 0-0 [facility] Comment on above: Performed By: #### D IFF CBC, BMP ####[address] [place] [address] [facility] Monocytes/100 WBC (Bld) 8 % Normal 2-11 [facility] Comment on above: Performed By: #### D IFF CBC, BMP ####[address] [place] [address] [facility] Myelocytes 1 % High 0-0 [facility] Comment on above: Performed By: #### D IFF CBC, BMP ####[address] [place] [address] [facility] Platelet Estimate Normal Normal Normal [facility] Comment on above: Result Comment: PERF ORMED BY:[address] [place], [place] [phone] MEDICAL DIRECTORNATI LAUREN M.D. Performed By: #### D IFF CBC, BMP ####[address] [address] [facility] Platelet mean volume (Bld) [Entitic vol] 7.3 fL Normal 6.6-10.1 [facility] Comment on above: Performed By: #### D IFF CBC, BMP ####[address] [address] [facility] Platelet Morphology Normal Normal Normal [facility] Comment on above: Result Comment: PERF ORMED BY:[address] [place], [place] [phone] MEDICAL DIRECTORNATI LAUREN M.D. Performed By: #### D IFF CBC, BMP ####[address] [address] [place] Platelets (Bld) [#/Vol] 445 10*3/uL Normal 150-450 [facility] Comment on above: Performed By: #### D IFF CBC, BMP ####[address] [place] [address] [facility] Poikilocytosis Slight Normal [facility] Comment on above: Performed By: #### D IFF CBC, BMP ####[facility] [place] [address] [facility] Polychromasia Slight Normal [facility] Comment on above: Performed By: #### D IFF CBC, BMP ####[address] [place] [address] [facility] RBC (Bld) [#/Vol] 3.82 10*6/uL Low 3.90-5.60 [facility] Comment on above: Performed By: #### D IFF CBC, BMP ####[address] [place] [address] [facility] Segmented neutrophils/100 WBC (Bld) 79 % High 50-70 [facility] Comment on above: Performed By: #### D IFF CBC, BMP ####[address] [address] [facility] Stomatocytes Slight Normal [facility] Comment on above: Performed By: #### D IFF CBC, BMP ####[address] [address] [facility] Target Cells Slight Normal [facility] Comment on above: Performed By: #### D IFF CBC, BMP ####[address] [address] [facility] WBC (Bld) [#/Vol] 21.5 10*3/uL High 4.1-10.5 [facility] Comment on above: Performed By: #### D IFF CBC, BMP ####[address] [address] [facility] Eosinophils/100 WBC Manual c nt (Bld)Ordered By: Reginald Arroyo on 11-14-2022 Eosinophils/100 WBC (Bld) 2 % 1-3 [facility] Fungal Smearon 11-14-2022 Fungal Smear Fungus Smear Results No Yeast Like Elements Seen No Fungal Like Elements Seen PERFORMED BY: [facility] [address] [place] [id number] PATHOLOGIST DATA TECHNICAL LEAD NATI LAUREN M.D. [facility] Comment on above: Performed By: #### A FBCS RES1, MYC CULT ####[facility] ,#### FS ####[address] [address] [facility] Fungus (Mycology) Cultureon 11-14-2022 Fungus (Mycology) Culture [facility] Comment on above: Performed By: #### A FBCS RES1, MYC CULT ####[facility] ,#### FS ####[address] [address] [facility] Glucose Poct Glucometerson 0 11-14-2022 Glucose [Mass/Vol] 87 mg/dL [facility] Comment on above: Result Comment: [facility] Glucose Reference Range is dependent on time and content of last meal. Glucose of more than 200 mg/dL in a nonstressed, ambulatory subject supports the diagnosis of Diabetes Mellitus.PERFORMED BY:[place] [id number] [place], [place] [phone] MEDICAL DIRECTORNATI LAUREN M.D. Performed By: #### G LULS ####Point of Care testing, Gram Stainon 11-14-2022 Microscopic observation Gram stain Nom (Unsp spec) Gram Stain Result 3+ White Blood Cells 3+ Gram Positive Bacilli 1FPC PERFORMED BY: [facility] [address] [place] [address] PATHOLOGIST DATA TECHNICAL LEAD NATI LAUREN M.D. [facility] Comment on above: Performed By: #### C UBR, GS ####[place] [id number] [facility] Lymphocytes/100 WBC Manual c nt (Bld)Ordered By: Reginald Arroyo on 11-14-2022 Lymphocytes/100 WBC (Bld) 9 % 18-42 [facility] Metamyelocytes/100 WBC Manua l cnt (Bld)Ordered By: Reginald Arroyo on 11-14-2022 Metamyelocytes/100 WBC (Bld) 2 % 0-0 [facility] Monocytes/100 WBC Manual cnt (Bld)Ordered By: Reginald Arroyo on 11-14-2022 Monocytes/100 WBC (Bld) 8 % 2-11 [facility] Myelocytes/100 WBC Manual cn t (Bld)Ordered By: Reginald Arroyo on 11-14-2022 Myelocytes/100 WBC (Bld) 1 % 0-0 [facility] Segmented neutrophils/100 WB C Manual cnt (Bld)Ordered By: Reginald Arroyo on 11-14-2022 Segmented neutrophils/100 WBC (Bld) 79 % 50-70 [facility] Target cellsOrdered By: Kira Arroyo on 11-14-2022 Target cells LM Ql (Bld) Slight [facility] Triglycerideson 11-14-2022 Triglyceride [Mass/Vol] 144 mg/dL Normal 0-149 [facility] Comment on above: Order Comment: Comme nt please run off blood drawn this morning Result Comment: TRIG ATP III CLASSIFICATION TRIG less than 150 mg/dL Normal TRIG 150-199 mg/dL Borderline high TRIG 200-500 mg/dL High TRIG greater than 500 mg/dL Very high Standard traceable to [facility] Con[facility] and Prevention (CDC) test method.PERFORMED BY:[facility] [place], [place] [phone] MEDICAL DIRECTORNATI LAUREN M.D. Performed By: #### T RIG ####[facility] [id number] [place] [address] [facility] US venous duplex LE BIon US venous duplex LE BI Normal [facility] XR chest 1V portableon 11-14 XR chest 1V portable Normal [facility] XR chest 1V portable Normal [facility] Arterial Blood Gason 023 ABG Base Excess 10.0 mmol/L High -3.0-3.0 [facility] Comment on above: Performed By: #### A BG ####Point of Care testing, ABG Frac Inspired O2 60 % Normal [facility] Comment on above: Performed By: #### A BG ####Point of Care testing, ABG Oxygen Content 7.3 mmol/L Normal 6.6-9.7 [facility] Comment on above: Performed By: #### A BG ####Point of Care testing, ABG Oxygen Saturation 90.3 % Low 95.0-100.0 [facility] Comment on above: Performed By: #### A BG ####Point of Care testing, ABG PCO2 52.0 mm[Hg] Off scale high 35.0-45.0 [facility] Comment on above: Performed By: #### A BG ####Point of Care testing, ABG PEEP [address] [facility] Comment on above: Performed By: #### A BG ####Point of Care testing, ABG PH 7.45 Normal 7.35-7.45 [facility] Comment on above: Performed By: #### A BG ####Point of Care testing, ABG PO2 58.1 mm[Hg] Low 80.0-100.0 [facility] Comment on above: Performed By: #### A BG ####Point of Care testing, ABG TV [address] [facility] Comment on above: Performed By: #### A BG ####Point of Care testing, CO2 [Moles/Vol] 37.2 mmol/L High 23.0-27.0 [facility] Comment on above: Performed By: #### A BG ####Point of Care testing, HCO3 (Bld) [Moles/Vol] 35.6 mmol/L High 23.0-29.[address] [facility] Comment on above: Performed By: #### A BG ####Point of Care testing, Respiratory Critical [facility] Comment on above: Result Comment: Crit ical Value called on: 11/13/2022 at 05:00PERFORMED BY:[facility] [place], [place] [phone] MEDICAL DIRECTORNATI LAUREN M.D. Performed By: #### A BG ####Point of Care testing, Set Respiratory Rate [address] [facility] Comment on above: Performed By: #### A BG ####Point of Care testing, VBG Draw Site Right Radial [facility] Comment on above: Performed By: #### A BG ####Point of Care testing, Ventilator Mode AC [facility] Comment on above: Performed By: #### A BG ####Point of Care testing, Basic Metabolic Panelon 05-0 Anion gap [Moles/Vol] 7.9 mmol/L Normal 6.0-15.0 [facility] Comment on above: Performed By: #### S CAN CBC, BMP ####[facility] [id number] [place] [address] [facility] Calcium [Mass/Vol] 8.0 mg/dL Low 8.6-10.3 [facility] Comment on above: Performed By: #### S CAN CBC, BMP ####[address] [address] [facility] Chloride [Moles/Vol] 96 mmol/L Low 98-107 [facility] Comment on above: Performed By: #### S CAN CBC, BMP ####[address] [address] [facility] CO2 [Moles/Vol] 37.5 mmol/L High 21.0-31.0 [facility] Comment on above: Performed By: #### S CAN CBC, BMP ####[address] [address] [facility] Creatinine [Mass/Vol] 0.42 mg/dL Low 0.70-1.30 [facility] Comment on above: Performed By: #### S CAN CBC, BMP ####[address] [address] [place] Creatinine Clr Calc Pharmacy 263.[address] [facility] Comment on above: Result Comment: PERF ORMED BY:[place] [address] [place], [place] [phone] MEDICAL DIRECTORNATI LAUREN M.D. Performed By: #### S CAN CBC, BMP ####[address] [address] [place] GFR/1.73 sq M.predicted MDRD (S/P/Bld) [Vol rate/Area] mL/min/{1.73_m2} Normal [facility] Comment on above: Performed By: #### S CAN CBC, BMP ####[facility] [id number] [place] [id number] [facility] Glucose [Mass/Vol] 93 mg/dL Normal 70-100 [facility] Comment on above: Result Comment: [facility] Glucose Reference Range is dependent on time and content of last meal. Glucose of more than 200 mg/dL in a nonstressed, ambulatory subject supports the diagnosis of Diabetes Mellitus. ADA recommended reference range Performed By: #### S CAN CBC, BMP ####[facility] [id number] [place] [id number] [facility] Potassium [Moles/Vol] 4.4 mmol/L Normal 3.5-5.1 [facility] Comment on above: Performed By: #### S CAN CBC, BMP ####[place] [id number] [facility] Sodium [Moles/Vol] 137 mmol/L Normal 136-145 [facility] Comment on above: Performed By: #### S CAN CBC, BMP ####[place] [id number] [facility] Urea nitrogen [Mass/Vol] 20 mg/dL Normal 7-25 [facility] Comment on above: Performed By: #### S CAN CBC, BMP ####[place] [id number] [facility] Glucose Poct Glucometerson 0 11-13-2022 Commemt1 Glu2: Cleaned Meter Normal [facility] Comment on above: Result Comment: PERF ORMED BY:[address] [place], [place] [phone] MEDICAL ALEKSANDAR LAUREN M.D. Performed By: #### G LUBETY ####Point of Care testing, Glucose [Mass/Vol] 121 mg/dL Normal [facility] Comment on above: Result Comment: [facility] Glucose Reference Range is dependent on time and content of last meal. Glucose of more than 200 mg/dL in a nonstressed, ambulatory subject supports the diagnosis of Diabetes Mellitus. Performed By: #### G LULS ####Point of Care testing, Commemt1 Glu2: Cleaned Meter [facility] Comment on above: Result Comment: PERF ORMED BY:[place] [address] [place]ba[place]fred[place], [place] [phone] MEDICAL DIRECTORNATI LAUREN M.D. Performed By: #### G LULS ####Point of Care testing, Glucose [Mass/Vol] 87 mg/dL Normal [facility] Comment on above: Result Comment: [place] [facility] Glucose Reference Range is dependent on time and content of last meal. Glucose of more than 200 mg/dL in a nonstressed, ambulatory subject supports the diagnosis of Diabetes Mellitus. Performed By: #### G LULS ####Point of Care testing, Commemt1 Glu2: Cleaned Meter [facility] Comment on above: Result Comment: PERF ORMED BY:[address] [place], [place] [phone] MEDICAL DIRECTORNATI LAUREN M.D. Performed By: #### G LULS ####Point of Care testing, Glucose [Mass/Vol] 96 mg/dL Normal [facility] Comment on above: Result Comment: [place] om Glucose Reference Range is dependent on time and content of last meal. Glucose of more than 200 mg/dL in a nonstressed, ambulatory subject supports the diagnosis of Diabetes Mellitus. Performed By: #### G LULS ####Point of Care testing, Commemt1 Glu2: Cleaned Meter [facility] Comment on above: Result Comment: PERF ORMED BY:[address] [place], [place] [phone] MEDICAL DIRECTORNATI LAUREN M.D. Performed By: #### G LULS ####Point of Care testing, Glucose [Mass/Vol] 111 mg/dL Normal [facility] Comment on above: Result Comment: [place] om Glucose Reference Range is dependent on time and content of last meal. Glucose of more than 200 mg/dL in a nonstressed, ambulatory subject supports the diagnosis of Diabetes Mellitus. Performed By: #### G BENJAMIN ####Point of Care testing, Scan and CBCon 11-13-2022 Basophils (Bld) [#/Vol] 0.2 10*3/uL Normal 0.0-0.2 [facility] Comment on above: Performed By: #### S CAN CBC, BMP ####[place] [id number] Basophils/100 WBC (Bld) 1.2 % Normal . [facility] Comment on above: Performed By: #### S CAN CBC, BMP ####[place] [id number] [facility] Eosinophils (Bld) [#/Vol] 0.3 10*3/uL Normal 0.0-0.45 [facility] Comment on above: Performed By: #### S CAN CBC, BMP ####[address] Eosinophils/100 WBC (Bld) 2.0 % Normal . [facility] Comment on above: Performed By: #### S CAN CBC, BMP ####[place] [id number] [facility] Erythrocyte distribution width (RBC) [Ratio] 14.3 % Normal 12.0-14.8 [facility] Comment on above: Performed By: #### S CAN CBC, BMP ####[place] [id number] [facility] Hematocrit (Bld) [Volume fraction] 30.0 % Low 38.8-50.0 [facility] Comment on above: Performed By: #### S CAN CBC, BMP ####[place] [id number] [facility] Hemoglobin (Bld) [Mass/Vol] 9.8 g/dL Low 13.0-17.0 [facility] Comment on above: Performed By: #### S CAN CBC, BMP ####[address] Hypochromasia Moderate Normal [facility] Comment on above: Performed By: #### S CAN CBC, BMP ####[address] Lymphocytes (Bld) [#/Vol] 3.0 10*3/uL Normal 1.00-4.8 [facility] Comment on above: Performed By: #### S CAN CBC, BMP ####[address] Lymphocytes/100 WBC (Bld) 19.1 % Normal . [facility] Comment on above: Performed By: #### S CAN CBC, BMP ####[address] MCH (RBC) [Entitic mass] 29.6 pg Normal 27.5-35.2 [facility] Comment on above: Performed By: #### S CAN CBC, BMP ####[address] MCV (RBC) [Entitic vol] 90.9 fL Normal 83.5-101 [facility] Comment on above: Performed By: #### S CAN CBC, BMP ####[address] Mean Corpuscular HGB Conc 32.6 g/dL Normal 32.5-35.6 [facility] Comment on above: Performed By: #### S CAN CBC, BMP ####[address] Monocytes (Bld) [#/Vol] 1.2 10*3/uL High 0.0-0.8 [facility] Comment on above: Performed By: #### S CAN CBC, BMP ####[address] Monocytes/100 WBC (Bld) 7.7 % Normal . [facility] Comment on above: Performed By: #### S CAN CBC, BMP ####[place] [id number] [facility] Neutrophils (Bld) [#/Vol] 11.1 10*3/uL High 1.8-7.7 [facility] Comment on above: Performed By: #### S CAN CBC, BMP ####[place] [address] [place] [address] [facility] Neutrophils/100 WBC (Bld) 70.0 % Normal . [facility] Comment on above: Performed By: #### S CAN CBC, BMP ####[facility] [id number] [place] [address] [facility] NRBC% 0.1 /100{WBC} Normal 0-0.5 [facility] Comment on above: Performed By: #### S CAN CBC, BMP ####[place] [address] [place] [id number] [facility] Platelet Estimate Normal Normal Normal [facility] Comment on above: Performed By: #### S CAN CBC, BMP ####[place] [address] [place] [id number] [facility] Platelet mean volume (Bld) [Entitic vol] 7.0 fL Normal 6.6-10.1 [facility] Comment on above: Performed By: #### S CAN CBC, BMP ####[place] [id number] [facility] Platelet Morphology Normal Normal Normal [facility] Comment on above: Result Comment: PERF ORMED BY:[address] [place], [place] [phone] MEDICAL DIRECTORNATI LAUREN M.D. Performed By: #### S CAN CBC, BMP ####[place] [address] [place] [address] [facility] Platelets (Bld) [#/Vol] 435 10*3/uL Normal 150-450 [facility] Comment on above: Performed By: #### S CAN CBC, BMP ####[address] [address] [facility] Polychromasia Slight Normal [facility] Comment on above: Performed By: #### S CAN CBC, BMP ####[facility] [place] [address] [facility] RBC (Bld) [#/Vol] 3.30 10*6/uL Low 3.90-5.60 [facility] Comment on above: Performed By: #### S CAN CBC, BMP ####[facility] [place] [address] [facility] Stomatocytes Slight Normal [facility] Comment on above: Performed By: #### S CAN CBC, BMP ####[place] [address] [place] [address] [facility] WBC (Bld) [#/Vol] 15.9 10*3/uL High 4.1-10.5 [facility] Comment on above: Performed By: #### S CAN CBC, BMP ####[place] [address] [place] [address] [facility] XR chest 1V portableon 11-13 XR chest 1V portable Normal [facility] Arterial Blood Gason 023 ABG Base Excess 7.5 mmol/L High -3.0-3.0 [facility] Comment on above: Performed By: #### A BG ####Point of Care testing, ABG Frac Inspired O2 45 % [facility] Comment on above: Performed By: #### A BG ####Point of Care testing, ABG Oxygen Content 6.3 mmol/L Low 6.6-9.7 [facility] Comment on above: Performed By: #### A BG ####Point of Care testing, ABG Oxygen Saturation 89.5 % Low 95.0-100.0 [facility] Comment on above: Performed By: #### A BG ####Point of Care testing, ABG PCO2 50.7 mm[Hg] Off scale high 35.0-45.0 [facility] Comment on above: Performed By: #### A BG ####Point of Care testing, ABG PEEP [address] [facility] Comment on above: Performed By: #### A BG ####Point of Care testing, ABG PH 7.43 Normal 7.35-7.45 [facility] Comment on above: Performed By: #### A BG ####Point of Care testing, ABG PO2 59.2 mm[Hg] Low 80.0-100.0 [facility] Comment on above: Performed By: #### A BG ####Point of Care testing, ABG TV [address] [facility] Comment on above: Performed By: #### A BG ####Point of Care testing, CO2 [Moles/Vol] 34.5 mmol/L High 23.0-27.0 [facility] Comment on above: Performed By: #### A BG ####Point of Care testing, HCO3 (Bld) [Moles/Vol] 33.0 mmol/L High 23.0-29.[address] [facility] Comment on above: Performed By: #### A BG ####Point of Care testing, Respiratory Critical [facility] Comment on above: Result Comment: Crit ical Value called on: 11/12/2022 at 04:59PERFORMED BY:[facility] [place], [place] [phone] MEDICAL DIRECTORNATI LAUREN M.D. Performed By: #### A BG ####Point of Care testing, Set Respiratory Rate 20 [facility] Comment on above: Performed By: #### A BG ####Point of Care testing, VBG Draw Site Right Radial [facility] Comment on above: Performed By: #### A BG ####Point of Care testing, Ventilator Mode AC [facility] Comment on above: Performed By: #### A BG ####Point of Care testing, Basic Metabolic Panel Anion gap [Moles/Vol] 7.0 mmol/L Normal 6.0-15.0 [facility] Comment on above: Performed By: #### B MP, DIFF CBC ####[facility] [id number] [place] [address] [facility] Calcium [Mass/Vol] 7.7 mg/dL Low 8.6-10.3 [facility] Comment on above: Performed By: #### B MP, DIFF CBC ####[facility] [address] [place] [address] [place] Chloride [Moles/Vol] 99 mmol/L Normal 98-107 [facility] Comment on above: Performed By: #### B MP, DIFF CBC ####[place] [address] [place] [address] [place] CO2 [Moles/Vol] 36.1 mmol/L High 21.0-31.0 [facility] Comment on above: Performed By: #### B MP, DIFF CBC ####[facility] [address] [place] [address] [facility] Creatinine [Mass/Vol] 0.39 mg/dL Low 0.70-1.30 [facility] Comment on above: Performed By: #### B MP, DIFF CBC ####[place] [address] [place] [address] [place] Creatinine Clr Calc Pharmacy 278.[address] [facility] Comment on above: Result Comment: PERF ORMED BY:[address] [place], [place] [phone] MEDICAL DIRECTORNATI LAUREN M.D. Performed By: #### B MP, DIFF CBC ####[place] [address] [place] [address] [place] GFR/1.73 sq M.predicted MDRD (S/P/Bld) [Vol rate/Area] mL/min/{1.73_m2} [facility] Comment on above: Performed By: #### B MP, DIFF CBC ####[facility] [address] [place] [address] [place] Glucose [Mass/Vol] 128 mg/dL High 70-100 [facility] Comment on above: Result Comment: [place] Glucose Reference Range is dependent on time and content of last meal. Glucose of more than 200 mg/dL in a nonstressed, ambulatory subject supports the diagnosis of Diabetes Mellitus. ADA recommended reference range Performed By: #### B MP, DIFF CBC ####[facility] [address] [place] [address] [facility] Potassium [Moles/Vol] 4.1 mmol/L Normal 3.5-5.1 [facility] Comment on above: Performed By: #### B MP, DIFF CBC ####[facility] [place] [address] [facility] Sodium [Moles/Vol] 138 mmol/L Normal 136-145 [facility] Comment on above: Performed By: #### B MP, DIFF CBC ####[facility] [address] [place] [address] [facility] Urea nitrogen [Mass/Vol] 15 mg/dL Normal 7-25 [facility] Comment on above: Performed By: #### B MP, DIFF CBC ####[place] [address] [place] [address] [facility] Diff and CBCon 11-12-2022 Anisocytosis Ql (Bld) Slight Normal [facility] Comment on above: Performed By: #### B MP, DIFF CBC ####[place] [address] [place] [address] [facility] Erythrocyte distribution width (RBC) [Ratio] 13.9 % Normal 12.0-14.8 [facility] Comment on above: Performed By: #### B MP, DIFF CBC ####[place] [address] [place] [address] [facility] Hematocrit (Bld) [Volume fraction] 29.5 % Low 38.8-50.0 [facility] Comment on above: Performed By: #### B MP, DIFF CBC ####[address] [address] [facility] Hemoglobin (Bld) [Mass/Vol] 9.9 g/dL Low 13.0-17.0 [facility] Comment on above: Performed By: #### B MP, DIFF CBC ####[place] [address] [place] [address] [facility] Hypochromasia Moderate Normal [facility] Comment on above: Performed By: #### B MP, DIFF CBC ####[place] [address] Lymphocytes/100 WBC (Bld) 13 % Low 18-42 [facility] Comment on above: Performed By: #### B MP, DIFF CBC ####[address] MCH (RBC) [Entitic mass] 30.5 pg Normal 27.5-35.2 [facility] Comment on above: Performed By: #### B MP, DIFF CBC ####[address] MCV (RBC) [Entitic vol] 91.1 fL Normal 83.5-101 [facility] Comment on above: Performed By: #### B MP, DIFF CBC ####[address] Mean Corpuscular HGB Conc 33.5 g/dL Normal 32.5-35.6 [facility] Comment on above: Performed By: #### B MP, DIFF CBC ####[address] Metamyelocytes 3 % High 0-0 [facility] Comment on above: Performed By: #### B MP, DIFF CBC ####[address] Monocytes/100 WBC (Bld) 4 % Normal 2-11 [facility] Comment on above: Performed By: #### B MP, DIFF CBC ####[address] Myelocytes 3 % High 0-0 [facility] Comment on above: Performed By: #### B MP, DIFF CBC ####[address] Platelet Estimate Normal Normal Normal [facility] Comment on above: Performed By: #### B MP, DIFF CBC ####[address] Platelet mean volume (Bld) [Entitic vol] 7.1 fL Normal 6.6-10.1 [facility] Comment on above: Result Comment: PERF ORMED BY:[place] [address] [place], [place] [phone] MEDICAL DIRECTORNATI LAUREN M.D. Performed By: #### B MP, DIFF CBC ####[address] [address] [facility] Platelet Morphology Normal Normal Normal [facility] Comment on above: Result Comment: PERF ORMED BY:[address] [place], [place] [phone] MEDICAL DIRECTORNATI LAUREN M.D. Performed By: #### B MP, DIFF CBC ####[address] [address] [facility] Platelets (Bld) [#/Vol] 375 10*3/uL Normal 150-450 [facility] Comment on above: Performed By: #### B MP, DIFF CBC ####[place] [id number] [facility] RBC (Bld) [#/Vol] 3.24 10*6/uL Low 3.90-5.60 [facility] Comment on above: Performed By: #### B MP, DIFF CBC ####[place] [id number] [facility] Segmented neutrophils/100 WBC (Bld) 78 % High 50-70 [facility] Comment on above: Performed By: #### B MP, DIFF CBC ####[place] [id number] [facility] WBC (Bld) [#/Vol] 18.3 10*3/uL High 4.1-10.5 [facility] Comment on above: Performed By: #### B MP, DIFF CBC ####[place] [id number] [facility] Glucose Poct Glucometerson 0 11-12-2022 Commemt1 Glu2: Cleaned Meter Normal [facility] Comment on above: Result Comment: PERF ORMED BY:[place] [address] [place], [place] [phone] MEDICAL DIRECTORNATI LAUREN M.D. Performed By: #### G LULS ####Point of Care testing, Glucose [Mass/Vol] 125 mg/dL Normal [facility] Comment on above: Result Comment: [place] om Glucose Reference Range is dependent on time and content of last meal. Glucose of more than 200 mg/dL in a nonstressed, ambulatory subject supports the diagnosis of Diabetes Mellitus. Performed By: #### G LULS ####Point of Care testing, Glucose [Mass/Vol] 133 mg/dL Normal [facility] Comment on above: Result Comment: [place] om Glucose Reference Range is dependent on time and content of last meal. Glucose of more than 200 mg/dL in a nonstressed, ambulatory subject supports the diagnosis of Diabetes Mellitus.PERFORMED BY:[place] [address] [place], [place] [phone] MEDICAL DIRECTORNATI LAUREN M.D. Performed By: #### G LULS ####Point of Care testing, Commemt1 Glu2: Cleaned Meter [facility] Comment on above: Result Comment: PERF ORMED BY:[place] [address] [place], [place] [phone] MEDICAL ALEKSANDAR LAUREN M.D. Performed By: #### G LULS ####Point of Care testing, Glucose [Mass/Vol] 122 mg/dL Normal [facility] Comment on above: Result Comment: [place] om Glucose Reference Range is dependent on time and content of last meal. Glucose of more than 200 mg/dL in a nonstressed, ambulatory subject supports the diagnosis of Diabetes Mellitus. Performed By: #### G LULS ####Point of Care testing, Commemt1 Glu2: Cleaned Meter [facility] Comment on above: Result Comment: PERF ORMED BY:[place] [address] [place], [place] [phone] MEDICAL DIRECTORNATI LAUREN M.D. Performed By: #### G LULS ####Point of Care testing, Glucose [Mass/Vol] 120 mg/dL [facility] Comment on above: Result Comment: [place] Glucose Reference Range is dependent on time and content of last meal. Glucose of more than 200 mg/dL in a nonstressed, ambulatory subject supports the diagnosis of Diabetes Mellitus. Performed By: #### G BENJAMIN ####Point of Care testing, XR chest 1V portableon 11-12 XR chest 1V portable [facility] XR chest 1V portable [facility] Arterial Blood Gason 023 ABG Base Excess 6.6 mmol/L High -3.0-3.0 [facility] Comment on above: Performed By: #### A BG ####Point of Care testing, ABG Frac Inspired O2 60 % [facility] Comment on above: Performed By: #### A BG ####Point of Care testing, ABG Oxygen Content 6.3 mmol/L Low 6.6-9.7 [facility] Comment on above: Performed By: #### A BG ####Point of Care testing, ABG Oxygen Saturation 91.6 % Low 95.0-100.0 [facility] Comment on above: Performed By: #### A BG ####Point of Care testing, ABG PCO2 48.7 mm[Hg] High 35.0-45.0 [facility] Comment on above: Performed By: #### A BG ####Point of Care testing, ABG PEEP [address] [facility] Comment on above: Performed By: #### A BG ####Point of Care testing, ABG PH 7.43 Normal 7.35-7.45 [facility] Comment on above: Performed By: #### A BG ####Point of Care testing, ABG PO2 63.6 mm[Hg] Low 80.0-100.0 [facility] Comment on above: Performed By: #### A BG ####Point of Care testing, ABG TV [address] [facility] Comment on above: Performed By: #### A BG ####Point of Care testing, CO2 [Moles/Vol] 33.3 mmol/L High 23.0-27.0 [facility] Comment on above: Performed By: #### A BG ####Point of Care testing, HCO3 (Bld) [Moles/Vol] 31.8 mmol/L High 23.0-29.[address] [facility] Comment on above: Performed By: #### A BG ####Point of Care testing, Respiratory Critical [facility] Comment on above: Result Comment: Crit ical Value called on: 11/11/2022 at 05:36PERFORMED BY:[address] [place], [place] [phone] MEDICAL DIRECTORNATI LAUREN M.D. Performed By: #### A BG ####Point of Care testing, Set Respiratory Rate 20 [facility] Comment on above: Performed By: #### A BG ####Point of Care testing, VBG Draw Site Right Radial [facility] Comment on above: Performed By: #### A BG ####Point of Care testing, Ventilator Mode AC [facility] Comment on above: Performed By: #### A BG ####Point of Care testing, Basic Metabolic Panel Anion gap [Moles/Vol] 7.7 mmol/L Normal 6.0-15.0 [facility] Comment on above: Performed By: #### T RIG, BMP, DIFF CBC ####[facility] [id number] [place] [address] [facility] Calcium [Mass/Vol] 7.5 mg/dL Low 8.6-10.3 [facility] Comment on above: Performed By: #### T RIG, BMP, DIFF CBC ####[facility] [id number] [place] [address] [facility] Chloride [Moles/Vol] 99 mmol/L Normal 98-107 [facility] Comment on above: Performed By: #### T RIG, BMP, DIFF CBC ####[facility] [place] [address] [facility] CO2 [Moles/Vol] 34.3 mmol/L High 21.0-31.0 [facility] Comment on above: Performed By: #### T RIG BMP, DIFF CBC ####[place] [address] [place] [id number] [facility] Creatinine [Mass/Vol] 0.36 mg/dL Low 0.70-1.30 [facility] Comment on above: Performed By: #### T RIG, BMP, DIFF CBC ####[place] [address] [place] [id number] [facility] Creatinine Clr Calc Pharmacy 301.[address] [facility] Comment on above: Performed By: #### T BLACK BMP, DIFF CBC ####[place] [address] [place] [id number] [place] GFR/1.73 sq M.predicted MDRD (S/P/Bld) [Vol rate/Area] mL/min/{1.73_m2} [facility] Comment on above: Performed By: #### T BLACK BMP, DIFF CBC ####[address] Glucose [Mass/Vol] 108 mg/dL High 70-100 [facility] Comment on above: Result Comment: [facility] Glucose Reference Range is dependent on time and content of last meal. Glucose of more than 200 mg/dL in a nonstressed, ambulatory subject supports the diagnosis of Diabetes Mellitus. ADA recommended reference range Performed By: #### T RIG, BMP, DIFF CBC ####[place] [id number] [facility] Potassium [Moles/Vol] 4.0 mmol/L Normal 3.5-5.1 [facility] Comment on above: Performed By: #### T RIG, BMP, DIFF CBC ####[place] [id number] [facility] Sodium [Moles/Vol] 137 mmol/L Normal 136-145 [facility] Comment on above: Performed By: #### T RIG, BMP, DIFF CBC ####[place] [id number] [facility] Urea nitrogen [Mass/Vol] 14 mg/dL Normal 7-25 [facility] Comment on above: Performed By: #### T RIG, BMP, DIFF CBC ####[address] Diff and CBCon 11-11-2022 Anisocytosis Ql (Bld) Slight Normal Fir [facility] Comment on above: Performed By: #### T RIG, BMP, DIFF CBC ####[address] Eosinophils/100 WBC (Bld) 2 % Normal 1-3 [facility] Comment on above: Performed By: #### T RIG, BMP, DIFF CBC ####[address] Erythrocyte distribution width (RBC) [Ratio] 14.3 % Normal 12.0-14.8 [facility] Comment on above: Performed By: #### T RIG, BMP, DIFF CBC ####[address] Hematocrit (Bld) [Volume fraction] 31.2 % Low 38.8-50.0 [facility] Comment on above: Performed By: #### T RIG, BMP, DIFF CBC ####[address] Hemoglobin (Bld) [Mass/Vol] 10.2 g/dL Low 13.0-17.0 [facility] Comment on above: Performed By: #### T RIG, BMP, DIFF CBC ####[address] Hypochromasia Moderate Normal [facility] Comment on above: Performed By: #### T RIG, BMP, DIFF CBC ####[address] Lymphocytes/100 WBC (Bld) 11 % Low 18-42 [facility] Comment on above: Performed By: #### T RIG, BMP, DIFF CBC ####[address] MCH (RBC) [Entitic mass] 29.9 pg Normal 27.5-35.2 [facility] Comment on above: Performed By: #### T RIG, BMP, DIFF CBC ####[address] MCV (RBC) [Entitic vol] 91.8 fL Normal 83.5-101 [facility] Comment on above: Performed By: #### T RIG, BMP, DIFF CBC ####[address] Mean Corpuscular HGB Conc 32.6 g/dL Normal 32.5-35.6 [facility] Comment on above: Performed By: #### T RIG, BMP, DIFF CBC ####[address] Metamyelocytes 2 % High 0-0 [facility] Comment on above: Performed By: #### T RIG, BMP, DIFF CBC ####[address] Monocytes/100 WBC (Bld) 6 % Normal 2-11 [facility] Comment on above: Performed By: #### T RIG, BMP, DIFF CBC ####[address] Myelocytes 1 % High 0-0 [facility] Comment on above: Performed By: #### T RIG, BMP, DIFF CBC ####[address] Platelet Estimate Normal Normal Normal [facility] Comment on above: Performed By: #### T RIG, BMP, DIFF CBC ####[address] Platelet mean volume (Bld) [Entitic vol] 6.8 fL Normal 6.6-10.1 [facility] Comment on above: Result Comment: PERF ORMED BY:[address] [place], [place] [phone] MEDICAL ALEKSANDAR LAUREN M.D. Performed By: #### T RIG, BMP, DIFF CBC ####[place] [address] [place] [id number] [facility] Platelet Morphology Normal Normal Normal [facility] Comment on above: Result Comment: PERF ORMED BY:[place] [address] [place], [place] [phone] MEDICAL ALEKSANDAR LAUREN M.D. Performed By: #### T RIG, BMP, DIFF CBC ####[address] Platelets (Bld) [#/Vol] 401 10*3/uL Normal 150-450 [facility] Comment on above: Performed By: #### T RIG, BMP, DIFF CBC ####[address] Polychromasia Slight Normal [facility] Comment on above: Performed By: #### T RIG, BMP, DIFF CBC ####[address] RBC (Bld) [#/Vol] 3.40 10*6/uL Low 3.90-5.60 [facility] Comment on above: Performed By: #### T RIG, BMP, DIFF CBC ####[address] Segmented neutrophils/100 WBC (Bld) 79 % High 50-70 [facility] Comment on above: Performed By: #### T RIG, BMP, DIFF CBC ####[address] WBC (Bld) [#/Vol] 19.1 10*3/uL High 4.1-10.5 [facility] Comment on above: Performed By: #### T RIG, BMP, DIFF CBC ####[address] Glucose Poct Glucometerson 0 11-11-2022 Glucose [Mass/Vol] 156 mg/dL Normal [facility] Comment on above: Result Comment: [place] Glucose Reference Range is dependent on time and content of last meal. Glucose of more than 200 mg/dL in a nonstressed, ambulatory subject supports the diagnosis of Diabetes Mellitus.PERFORMED BY:[place] [address] [place], [place] [phone] MEDICAL DIRECTORNATI LAUREN M.D. Performed By: #### G LULS ####Point of Care testing, Commemt1 Glu2: Cleaned Meter Normal [facility] Comment on above: Performed By: #### G LULS ####Point of Care testing, Commemt2 SLIDING SCALE COVERA Normal [facility] Comment on above: Result Comment: PERF ORMED BY:[address] [place], [place] [phone] MEDICAL DIRECTORNATI LAUREN M.D. Performed By: #### G LULS ####Point of Care testing, Glucose [Mass/Vol] 158 mg/dL Normal [facility] Comment on above: Result Comment: [facility] Glucose Reference Range is dependent on time and content of last meal. Glucose of more than 200 mg/dL in a nonstressed, ambulatory subject supports the diagnosis of Diabetes Mellitus. Performed By: #### G LULS ####Point of Care testing, Glucose [Mass/Vol] 97 mg/dL Normal [facility] Comment on above: Result Comment: [place] Glucose Reference Range is dependent on time and content of last meal. Glucose of more than 200 mg/dL in a nonstressed, ambulatory subject supports the diagnosis of Diabetes Mellitus.PERFORMED BY:[place] [address] [place], [place] [phone] MEDICAL DIRECTORNATI LAUREN M.D. Performed By: #### G LULS ####Point of Care testing, Magnesiumon 11-11-2022 Magnesium [Mass/Vol] 2.2 mg/dL Normal 1.9-2.7 [facility] Comment on above: Order Comment: Comme nt please run off blood drawn this morning Result Comment: PERF ORMED BY:[place] [address] [place], [place] [phone] MEDICAL DIRECTORNATI LAUREN M.D. Performed By: #### M G ####[facility] [id number] [place] [address] [facility] No Panel InformationOrdered By: Rubi Ramos on 11-11-2022 Bedside Glucose #2 Comment Sliding scale covera [facility] Triglycerideson 11-11-2022 Triglyceride [Mass/Vol] 143 mg/dL Normal 0-149 [facility] Comment on above: Result Comment: TRIG ATP III CLASSIFICATION TRIG less than 150 mg/dL Normal TRIG 150-199 mg/dL Borderline high TRIG 200-500 mg/dL High TRIG greater than 500 mg/dL Very high Standard traceable to the Center for Disease Conrtrol and Prevention (CDC) test method.PERFORMED BY:[address] [place], [place] [phone] MEDICAL DIRECTORNATI LAUREN M.D. Performed By: #### T RIG, BMP, DIFF CBC ####[facility] [id number] [place] [address] [facility] XR chest 1V portableon 11-11 XR chest 1V portable Normal [facility] Arterial Blood Gason 023 ABG Base Excess 8.6 mmol/L High -3.0-3.0 [facility] Comment on above: Performed By: #### A BG ####Point of Care testing, ABG Frac Inspired O2 40 % [facility] Comment on above: Performed By: #### A BG ####Point of Care testing, ABG Oxygen Content 6.6 mmol/L Normal 6.6-9.7 [facility] Comment on above: Performed By: #### A BG ####Point of Care testing, ABG Oxygen Saturation 92.0 % Low 95.0-100.0 [facility] Comment on above: Performed By: #### A BG ####Point of Care testing, ABG PCO2 47.0 mm[Hg] High 35.0-45.0 [facility] Comment on above: Performed By: #### A BG ####Point of Care testing, ABG PEEP 6 Normal [facility] Comment on above: Performed By: #### A BG ####Point of Care testing, ABG PH 7.47 High 7.35-7.45 [facility] Comment on above: Performed By: #### A BG ####Point of Care testing, ABG PO2 61.7 mm[Hg] Low 80.0-100.0 [facility] Comment on above: Performed By: #### A BG ####Point of Care testing, ABG TV [address] [facility] Comment on above: Performed By: #### A BG ####Point of Care testing, CO2 [Moles/Vol] 34.8 mmol/L High 23.0-27.0 [facility] Comment on above: Performed By: #### A BG ####Point of Care testing, HCO3 (Bld) [Moles/Vol] 33.4 mmol/L High 23.0-29.[address] [facility] Comment on above: Performed By: #### A BG ####Point of Care testing, Respiratory Critical [facility] Comment on above: Result Comment: Crit ical Value called on: 11/10/2022 at 05:16PERFORMED BY:[facility] [place], [place] [phone] MEDICAL DIRECTORNATI LAUREN M.D. Performed By: #### A BG ####Point of Care testing, Set Respiratory Rate 20 [facility] Comment on above: Performed By: #### A BG ####Point of Care testing, VBG Draw Site Left Brachial [facility] Comment on above: Performed By: #### A BG ####Point of Care testing, Ventilator Mode AC [facility] Comment on above: Performed By: #### A BG ####Point of Care testing, Basic Metabolic Panelon Anion gap [Moles/Vol] 7.5 mmol/L Normal 6.0-15.0 [facility] Comment on above: Performed By: #### D IFF CBC, BMP ####[facility] [id number] [place] [address] [facility] Calcium [Mass/Vol] 7.5 mg/dL Low 8.6-10.3 [facility] Comment on above: Performed By: #### D IFF CBC, BMP ####[facility] [id number] [place] [address] [facility] Chloride [Moles/Vol] 100 mmol/L Normal 98-107 [facility] Comment on above: Performed By: #### D IFF CBC, BMP ####[facility] [id number] [place] [address] [facility] CO2 [Moles/Vol] 34.4 mmol/L High 21.0-31.0 [facility] Comment on above: Performed By: #### D IFF CBC, BMP ####[place] [address] [place] [address] [facility] Creatinine [Mass/Vol] 0.40 mg/dL Low 0.70-1.30 [facility] Comment on above: Performed By: #### D IFF CBC, BMP ####[place] [id number] [place] [address] [place] Creatinine Clr Calc Pharmacy 271.[address] [facility] Comment on above: Result Comment: PERF ORMED BY:[address] [place], [place] [phone] MEDICAL ALEKSANDAR LAUREN M.D. Performed By: #### D IFF CBC, BMP ####[place] [address] [place] [address] [facility] GFR/1.73 sq M.predicted MDRD (S/P/Bld) [Vol rate/Area] mL/min/{1.73_m2} [facility] Comment on above: Performed By: #### D IFF CBC, BMP ####[facility] [id number] [place] [address] [facility] Glucose [Mass/Vol] 111 mg/dL High 70-100 [facility] Comment on above: Result Comment: [place] Glucose Reference Range is dependent on time and content of last meal. Glucose of more than 200 mg/dL in a nonstressed, ambulatory subject supports the diagnosis of Diabetes Mellitus. ADA recommended reference range Performed By: #### D IFF CBC, BMP ####[place] [address] Potassium [Moles/Vol] 3.9 mmol/L Normal 3.5-5.1 [facility] Comment on above: Performed By: #### D IFF CBC, BMP ####[address] Sodium [Moles/Vol] 138 mmol/L Normal 136-145 [facility] Comment on above: Performed By: #### D IFF CBC, BMP ####[address] Urea nitrogen [Mass/Vol] 19 mg/dL Normal 7-25 [facility] Comment on above: Performed By: #### D IFF CBC, BMP ####[address] Blood Cultureon 11-10-2022 Bacteria identified Cx Nom (Bld) NO GROWTH 5 DAYS PERFORMED BY: [facility] [address] [place] [address] PATHOLOGIST DATA TECHNICAL LEAD NATI LAUREN M.D. [facility] Comment on above: Performed By: #### C UBLD ####[address] Diff and CBCon 11-10-2022 Erythrocyte distribution width (RBC) [Ratio] 13.9 % Normal 12.0-14.8 [facility] Comment on above: Performed By: #### D IFF CBC, BMP ####[place] [id number] [facility] Hematocrit (Bld) [Volume fraction] 30.5 % Low 38.8-50.0 [facility] Comment on above: Performed By: #### D IFF CBC, BMP ####[address] Hemoglobin (Bld) [Mass/Vol] 10.0 g/dL Low 13.0-17.0 [facility] Comment on above: Performed By: #### D IFF CBC, BMP ####[place] [address] [place] [id number] [facility] Hypochromasia Moderate Normal [facility] Comment on above: Performed By: #### D IFF CBC, BMP ####[place] [address] [place] [id number] [facility] MCH (RBC) [Entitic mass] 29.9 pg Normal 27.5-35.2 [facility] Comment on above: Performed By: #### D IFF CBC, BMP ####[place] [address] [place] [id number] [facility] MCV (RBC) [Entitic vol] 91.2 fL Normal 83.5-101 [facility] Comment on above: Performed By: #### D IFF CBC, BMP ####[place] [id number] [facility] Mean Corpuscular HGB Conc 32.8 g/dL Normal 32.5-35.6 [facility] Comment on above: Performed By: #### D IFF CBC, BMP ####[place] [id number] [facility] Platelet Estimate Normal Normal Normal [facility] Comment on above: Performed By: #### D IFF CBC, BMP ####[place] [id number] [facility] Platelet mean volume (Bld) [Entitic vol] 6.9 fL Normal 6.6-10.1 [facility] Comment on above: Result Comment: PERF ORMED BY:[address] [place], [place] [phone] MEDICAL ALEKSANDAR LAUREN M.D. Performed By: #### D IFF CBC, BMP ####[place] [id number] [facility] Platelet Morphology Normal Normal Normal [facility] Comment on above: Result Comment: PERF ORMED BY:[address] [place], [place] [phone] MEDICAL DIRECTORNATI LAUREN M.D. Performed By: #### D IFF CBC, BMP ####[place] [place] [address] [facility] Platelets (Bld) [#/Vol] 375 10*3/uL Normal 150-450 [facility] Comment on above: Performed By: #### D IFF CBC, BMP ####[place] [address] [place] [address] [facility] RBC (Bld) [#/Vol] 3.34 10*6/uL Low 3.90-5.60 [facility] Comment on above: Performed By: #### D IFF CBC, BMP ####[place] [address] [place] [id number] [facility] Stomatocytes Slight Normal [facility] Comment on above: Performed By: #### D IFF CBC, BMP ####[place] [id number] [facility] Target Cells Slight Normal [facility] Comment on above: Performed By: #### D IFF CBC, BMP ####[place] [id number] [facility] WBC (Bld) [#/Vol] 14.4 10*3/uL High 4.1-10.5 [facility] Comment on above: Performed By: #### D IFF CBC, BMP ####[place] [id number] [facility] Dipstick and Microscopicon 0 11-10-2022 Appearance (U) Clear Normal Clear [facility] Comment on above: Order Comment: Name Collection Type:: Earl Catheter Performed By: #### A DDONUAPLUS ####[place] [id number] [facility] Bacteria,Urine None Seen Normal None Seen [facility] Comment on above: Order Comment: Name Collection Type:: Earl Catheter Performed By: #### A DDONUAPLUS ####[place] [id number] [facility] Bilirubin,Urine Negative Normal Negative [facility] Comment on above: Order Comment: Name Collection Type:: Earl Catheter Performed By: #### A DDONUAPLUS ####[address] [address] [facility] Color (U) Yellow Normal Yellow [facility] Comment on above: Order Comment: Name Collection Type:: Earl Catheter Performed By: #### A DDONUAPLUS ####[address] [address] [facility] Glucose Ql (U) Normal Normal Normal [facility] Comment on above: Order Comment: Name Collection Type:: Earl Catheter Performed By: #### A DDONUAPLUS ####[place] [id number] [facility] Hyaline Casts,Urine None Seen Normal 0-8 [facility] Comment on above: Order Comment: Name Collection Type:: Earl Catheter Result Comment: PERF ORMED BY:[address] [place], [place] [phone] MEDICAL ALEKSANDAR LAUREN M.D. Performed By: #### A DDONUAPLUS ####[address] [address] [facility] Ketones Ql (U) Negative Normal Negative [facility] Comment on above: Order Comment: Name Collection Type:: Earl Catheter Performed By: #### A DDONUAPLUS ####[address] [address] [facility] Leukocyte esterase Test strip Ql (U) Negative Normal Negative [facility] Comment on above: Order Comment: Name Collection Type:: Earl Catheter Performed By: #### A DDONUAPLUS ####[address] [address] [facility] Nitrite,Urine Negative Normal Negative [facility] Comment on above: Order Comment: Name Collection Type:: Earl Catheter Performed By: #### A DDONUAPLUS ####[address] [address] [facility] Occult Blood,Urine Trace High Negative [facility] Comment on above: Order Comment: Name Collection Type:: Earl Catheter Result Comment: PERF ORMED BY:[address] [place], [place] [phone] MEDICAL DIRECTORNATI LAUREN M.D. Performed By: #### A DDONUAPLUS ####[address] [address] [facility] pH (U) 7.5 [pH] Normal 5.0-9.0 [facility] Comment on above: Order Comment: Name Collection Type:: Earl Catheter Performed By: #### A DDONUAPLUS ####[address] [address] [facility] Protein,Urine Negative Normal Negative [facility] Comment on above: Order Comment: Name Collection Type:: Earl Catheter Performed By: #### A DDONUAPLUS ####[address] [address] [facility] RBC,Urine 10-19 High 0-4 [facility] Comment on above: Order Comment: Name Collection Type:: Earl Catheter Performed By: #### A DDONUAPLUS ####[address] [address] [facility] Specificy [place],Urine 1.016 Normal 1.001-1.03 0 [facility] Comment on above: Order Comment: Name Collection Type:: Earl Catheter Performed By: #### A DDONUAPLUS ####[address] [address] [facility] Squamous Epithelial Cell,Urine 0-1 Normal 0-2 [facility] Comment on above: Order Comment: Name Collection Type:: Earl Catheter Performed By: #### A DDONUAPLUS ####[address] [address] [facility] Urobilinogen,Urine Normal Normal Normal [facility] Comment on above: Order Comment: Name Collection Type:: Earl Catheter Performed By: #### A DDONUAPLUS ####[address] [address] [place] WBC,Urine 3-4 Normal 0-4 [facility] Comment on above: Order Comment: Name Collection Type:: Earl Catheter Performed By: #### A DDONUAPLUS ####[facility] [place] [address] [place] Glucose Poct Glucometerson 0 11-10-2022 Glucose [Mass/Vol] 147 mg/dL Normal [facility] Comment on above: Result Comment: [facility] Glucose Reference Range is dependent on time and content of last meal. Glucose of more than 200 mg/dL in a nonstressed, ambulatory subject supports the diagnosis of Diabetes Mellitus.PERFORMED BY:[address] [place], [place] [phone] MEDICAL DIRECTORNATI LAUREN M.D. Performed By: #### G LULS ####Point of Care testing, Glucose [Mass/Vol] 129 mg/dL Normal [facility] Comment on above: Result Comment: [facility] [facility] Glucose Reference Range is dependent on time and content of last meal. Glucose of more than 200 mg/dL in a nonstressed, ambulatory subject supports the diagnosis of Diabetes Mellitus.PERFORMED BY:[address] [place], [place] [phone] MEDICAL ALEKSANDAR LAUREN M.D. Performed By: #### G LULS ####Point of Care testing, Glucose [Mass/Vol] 148 mg/dL Normal [facility] Comment on above: Result Comment: [facility] Glucose Reference Range is dependent on time and content of last meal. Glucose of more than 200 mg/dL in a nonstressed, ambulatory subject supports the diagnosis of Diabetes Mellitus.PERFORMED BY:[address] [place], [place] [phone] MEDICAL ALEKSANDAR LAUREN M.D. Performed By: #### G LULS ####Point of Care testing, XR chest 1V portableon 11-10 XR chest 1V portable Normal [facility] XR chest 1V portable Normal [facility] Arterial Blood Gason 023 ABG Base Excess 5.4 mmol/L High -3.0-3.0 [facility] Comment on above: Performed By: #### A BG ####Point of Care testing, ABG Frac Inspired O2 40 % Normal [facility] Comment on above: Performed By: #### A BG ####Point of Care testing, ABG Oxygen Content 6.9 mmol/L Normal 6.6-9.7 [facility] Comment on above: Performed By: #### A BG ####Point of Care testing, ABG Oxygen Saturation 95.7 % Normal 95.0-100.0 [facility] Comment on above: Performed By: #### A BG ####Point of Care testing, ABG PCO2 52.4 mm[Hg] Off scale high 35.0-45.0 [facility] Comment on above: Performed By: #### A BG ####Point of Care testing, ABG PEEP [address] [facility] Comment on above: Performed By: #### A BG ####Point of Care testing, ABG PH 7.40 Normal 7.35-7.45 [facility] Comment on above: Performed By: #### A BG ####Point of Care testing, ABG PO2 82.4 mm[Hg] Normal 80.0-100.0 [facility] Comment on above: Performed By: #### A BG ####Point of Care testing, ABG TV [address] [facility] Comment on above: Performed By: #### A BG ####Point of Care testing, CO2 [Moles/Vol] 33.0 mmol/L High 23.0-27.0 [facility] Comment on above: Performed By: #### A BG ####Point of Care testing, HCO3 (Bld) [Moles/Vol] 31.4 mmol/L High 23.0-29.[address] [facility] Comment on above: Performed By: #### A BG ####Point of Care testing, Respiratory Critical Normal [facility] Comment on above: Result Comment: Crit ical Value called on: 11/09/2022 at 05:00PERFORMED BY:[facility] [place], [place] [phone] MEDICAL DIRECTORNATI LAUREN M.D. Performed By: #### A BG ####Point of Care testing, Set Respiratory Rate 20 [facility] Comment on above: Performed By: #### A BG ####Point of Care testing, VBG Draw Site Right Radial [facility] Comment on above: Performed By: #### A BG ####Point of Care testing, Ventilator Mode AC [facility] Comment on above: Performed By: #### A BG ####Point of Care testing, Basic Metabolic Panelon 05-0 Anion gap [Moles/Vol] 9.0 mmol/L Normal 6.0-15.0 [facility] Comment on above: Performed By: #### B MP, CBC ####[facility] [address] [place] [address] [facility] Calcium [Mass/Vol] 7.7 mg/dL Low 8.6-10.3 [facility] Comment on above: Performed By: #### B MP, CBC ####[facility] Clv[address] [place] [address] [place] Chloride [Moles/Vol] 99 mmol/L Normal 98-107 [facility] Comment on above: Performed By: #### B MP, CBC ####[facility] Ibp5639 [place] [address] [place] CO2 [Moles/Vol] 32.5 mmol/L High 21.0-31.0 [facility] Comment on above: Performed By: #### B MP, CBC ####[facility] Lww[address] [place] [address] [place] Creatinine [Mass/Vol] 0.40 mg/dL Low 0.70-1.30 [facility] Comment on above: Performed By: #### B MP, CBC ####[facility] [address]ks[address] [place] [address] [place] Creatinine Clr Calc Pharmacy 270.[address] [facility] Comment on above: Result Comment: PERF ORMED BY:[facility] [place] [address] [place], [place] [phone] MEDICAL DIRECTORNATI LAUREN M.D. Performed By: #### B MP, CBC ####[address] [place] [address] [place] GFR/1.73 sq M.predicted MDRD (S/P/Bld) [Vol rate/Area] mL/min/{1.73_m2} Normal [facility] Comment on above: Performed By: #### B MP, CBC ####[address] [place] [address] [facility] Glucose [Mass/Vol] 160 mg/dL High 70-100 [facility] Comment on above: Result Comment: [place] Glucose Reference Range is dependent on time and content of last meal. Glucose of more than 200 mg/dL in a nonstressed, ambulatory subject supports the diagnosis of Diabetes Mellitus. ADA recommended reference range Performed By: #### B MP, CBC ####[address] [address] [facility] Potassium [Moles/Vol] 4.5 mmol/L Normal 3.5-5.1 [facility] Comment on above: Performed By: #### B MP, CBC ####[address] [address] [facility] Sodium [Moles/Vol] 136 mmol/L Normal 136-145 [facility] Comment on above: Performed By: #### B MP, CBC ####[address] [address] [facility] Urea nitrogen [Mass/Vol] 19 mg/dL Normal 7-25 [facility] Comment on above: Performed By: #### B MP, CBC ####[address] [address] [facility] Complete Blood Count Auto Di ffon 11-09-2022 Basophils (Bld) [#/Vol] 0.0 10*3/uL Normal 0.0-0.2 [facility] Comment on above: Result Comment: PERF ORMED BY:[address] [place], [place] [phone] MEDICAL DIRECTORNATI LAUREN M.D. Performed By: #### B MP, CBC ####[address] Basophils/100 WBC (Bld) 0.1 % Normal . [facility] Comment on above: Performed By: #### B MP, CBC ####[address] Eosinophils (Bld) [#/Vol] 0.0 10*3/uL Normal 0.0-0.45 [facility] Comment on above: Performed By: #### B MP, CBC ####[address] Eosinophils/100 WBC (Bld) 0.0 % Normal . [facility] Comment on above: Performed By: #### B MP, CBC ####[address] Erythrocyte distribution width (RBC) [Ratio] 14.2 % Normal 12.0-14.8 [facility] Comment on above: Performed By: #### B MP, CBC ####[address] Hematocrit (Bld) [Volume fraction] 31.0 % Low 38.8-50.0 [facility] Comment on above: Performed By: #### B MP, CBC ####[address] Hemoglobin (Bld) [Mass/Vol] 10.3 g/dL Low 13.0-17.0 [facility] Comment on above: Performed By: #### B MP, CBC ####[address] Lymphocytes (Bld) [#/Vol] 0.7 10*3/uL Low 1.00-4.8 [facility] Comment on above: Performed By: #### B MP, CBC ####[address] [place] [address] [place] Lymphocytes/100 WBC (Bld) 4.6 % Normal . [facility] Comment on above: Performed By: #### B MP, CBC ####[address] MCH (RBC) [Entitic mass] 30.4 pg Normal 27.5-35.2 [facility] Comment on above: Performed By: #### B MP, CBC ####[address] MCV (RBC) [Entitic vol] 91.1 fL Normal 83.5-101 [facility] Comment on above: Performed By: #### B MP, CBC ####[address] Mean Corpuscular HGB Conc 33.4 g/dL Normal 32.5-35.6 [facility] Comment on above: Performed By: #### B MP, CBC ####[address] Monocytes (Bld) [#/Vol] 0.8 10*3/uL Normal 0.0-0.8 [facility] Comment on above: Performed By: #### B MP, CBC ####[address] Monocytes/100 WBC (Bld) 5.2 % Normal . [facility] Comment on above: Performed By: #### B MP, CBC ####[address] Neutrophils (Bld) [#/Vol] 13.1 10*3/uL High 1.8-7.7 [facility] Comment on above: Performed By: #### B MP, CBC ####[address] Neutrophils/100 WBC (Bld) 90.1 % Normal . [facility] Comment on above: Performed By: #### B MP, CBC ####[address] NRBC% 0.1 /100{WBC} Normal 0-0.5 [facility] Comment on above: Performed By: #### B YOSEPH, CBC ####[id number] [facility] Platelet mean volume (Bld) [Entitic vol] 7.0 fL Normal 6.6-10.1 [facility] Comment on above: Performed By: #### B MP, CBC ####[id number] [facility] Platelets (Bld) [#/Vol] 408 10*3/uL Normal 150-450 [facility] Comment on above: Performed By: #### B YOSEPH, CBC ####[id number] [facility] RBC (Bld) [#/Vol] 3.40 10*6/uL Low 3.90-5.60 [facility] Comment on above: Performed By: #### B YOSEPH, CBC ####[id number] [facility] WBC (Bld) [#/Vol] 14.6 10*3/uL High 4.1-10.5 [facility] Comment on above: Performed By: #### B YOSEPH, CBC ####[place] [id number] [facility] Glucose Poct Glucometerson 0 - Commemt1 Glu2: Cleaned Meter Normal [facility] Comment on above: Result Comment: PERF ORMED BY:[address] [place], [place] [phone] MEDICAL DIRECTORNATI LAUREN M.D. Performed By: #### G BENJAMIN ####Point of Care testing, Glucose [Mass/Vol] 122 mg/dL Normal [facility] Comment on above: Result Comment: [facility] Glucose Reference Range is dependent on time and content of last meal. Glucose of more than 200 mg/dL in a nonstressed, ambulatory subject supports the diagnosis of Diabetes Mellitus. Performed By: #### G BENJAMIN ####Point of Care testing, Commemt1 Glu2: Cleaned Meter [facility] Comment on above: Result Comment: PERF ORMED BY:[address] [place], [place] [phone] MEDICAL DIRECTORNATI LAUREN M.D. Performed By: #### G LULS ####Point of Care testing, Glucose [Mass/Vol] 176 mg/dL Normal [facility] Comment on above: Result Comment: [place] om Glucose Reference Range is dependent on time and content of last meal. Glucose of more than 200 mg/dL in a nonstressed, ambulatory subject supports the diagnosis of Diabetes Mellitus. Performed By: #### G LULS ####Point of Care testing, Commemt1 Glu2: Cleaned Meter [facility] Comment on above: Result Comment: PERF ORMED BY:[address] [place], [place] [phone] MEDICAL DIRECTORNATI LAUREN M.D. Performed By: #### G LULS ####Point of Care testing, Glucose [Mass/Vol] 149 mg/dL Normal [facility] Comment on above: Result Comment: [place] om Glucose Reference Range is dependent on time and content of last meal. Glucose of more than 200 mg/dL in a nonstressed, ambulatory subject supports the diagnosis of Diabetes Mellitus. Performed By: #### G LULS ####Point of Care testing, Commemt1 Glu2: Cleaned Meter [facility] Comment on above: Result Comment: PERF ORMED BY:[address] [place], [place] [phone] MEDICAL DIRECTORNATI LAUREN M.D. Performed By: #### G LULS ####Point of Care testing, Glucose [Mass/Vol] 159 mg/dL Normal [facility] Comment on above: Result Comment: [place] om Glucose Reference Range is dependent on time and content of last meal. Glucose of more than 200 mg/dL in a nonstressed, ambulatory subject supports the diagnosis of Diabetes Mellitus. Performed By: #### G BENJAMIN ####Point of Care testing, Triglycerideson 11-09-2022 Triglyceride [Mass/Vol] 392 mg/dL High 0-149 [facility] Comment on above: Result Comment: TRIG ATP III CLASSIFICATION TRIG less than 150 mg/dL Normal TRIG 150-199 mg/dL Borderline high TRIG 200-500 mg/dL High TRIG greater than 500 mg/dL Very high Standard traceable to the Center for Disease Conrtrol and Prevention (CDC) test method.PERFORMED BY:[facility] [place], [place] [phone] MEDICAL DIRECTORNATI LAUREN M.D. Performed By: #### T RIG ####[facility] [place] [address] [facility] XR chest 1V portableon 11-09 XR chest 1V portable Normal [facility] XR chest 1V portable Normal [facility] Arterial Blood Gason 023 ABG Base Excess 4.1 mmol/L High -3.0-3.0 [facility] Comment on above: Performed By: #### A BG ####Point of Care testing, ABG Frac Inspired O2 80 % [facility] Comment on above: Performed By: #### A BG ####Point of Care testing, ABG Oxygen Content 7.5 mmol/L Normal 6.6-9.7 [facility] Comment on above: Performed By: #### A BG ####Point of Care testing, ABG Oxygen Saturation 97.9 % Normal 95.0-100.0 [facility] Comment on above: Performed By: #### A BG ####Point of Care testing, ABG PCO2 55.6 mm[Hg] Off scale high 35.0-45.0 [facility] Comment on above: Performed By: #### A BG ####Point of Care testing, ABG PEEP [address] [facility] Comment on above: Performed By: #### A BG ####Point of Care testing, ABG PH 7.36 Normal 7.35-7.45 [facility] Comment on above: Performed By: #### A BG ####Point of Care testing, ABG PO2 111.2 mm[Hg] High 80.0-100.0 [facility] Comment on above: Performed By: #### A BG ####Point of Care testing, ABG TV [address] [facility] Comment on above: Performed By: #### A BG ####Point of Care testing, CO2 [Moles/Vol] 32.5 mmol/L High 23.0-27.0 [facility] Comment on above: Performed By: #### A BG ####Point of Care testing, HCO3 (Bld) [Moles/Vol] 30.8 mmol/L High 23.0-29.[address] [facility] Comment on above: Performed By: #### A BG ####Point of Care testing, Respiratory Critical [facility] Comment on above: Result Comment: Crit ical Value called on: 11/08/2022 at 05:00PERFORMED BY:[facility] [place], [place] [phone] MEDICAL DIRECTORNATI LAUREN M.D. Performed By: #### A BG ####Point of Care testing, Set Respiratory Rate 20 [facility] Comment on above: Performed By: #### A BG ####Point of Care testing, VBG Draw Site Left Radial [facility] Comment on above: Performed By: #### A BG ####Point of Care testing, Ventilator Mode AC [facility] Comment on above: Performed By: #### A BG ####Point of Care testing, Basic Metabolic Panel Anion gap [Moles/Vol] 10.0 mmol/L Normal 6.0-15.0 [facility] Comment on above: Performed By: #### B MP, SCAN CBC ####[facility] [address] [place] [address] [place] Calcium [Mass/Vol] 8.2 mg/dL Low 8.6-10.3 [facility] Comment on above: Performed By: #### B MP, SCAN CBC ####[facility] Bbo[address] [place] [address] [place] Chloride [Moles/Vol] 99 mmol/L Normal 98-107 [facility] Comment on above: Performed By: #### B MP, SCAN CBC ####[facility] [address] [place] [address] [place] CO2 [Moles/Vol] 29.8 mmol/L Normal 21.0-31.0 [facility] Comment on above: Performed By: #### B MP, SCAN CBC ####[facility] Duo[address] [place] [address] [place] Creatinine [Mass/Vol] 0.43 mg/dL Low 0.70-1.30 [facility] Comment on above: Performed By: #### B MP, SCAN CBC ####[facility] [address]ks[address] [place] [address] [place] Creatinine Clr Calc Pharmacy 251.[address] [facility] Comment on above: Result Comment: PERF ORMED BY:[address] [place], [place] [phone] MEDICAL ALEKSANDAR LAUREN M.D. Performed By: #### B MP, SCAN CBC ####[facility] [address] [place] [address] [place] GFR/1.73 sq M.predicted MDRD (S/P/Bld) [Vol rate/Area] mL/min/{1.73_m2} [facility] Comment on above: Performed By: #### B MP, SCAN CBC ####[facility] Xsw[address] [place] [address] [place] Glucose [Mass/Vol] 140 mg/dL High 70-100 [facility] Comment on above: Result Comment: [place] Glucose Reference Range is dependent on time and content of last meal. Glucose of more than 200 mg/dL in a nonstressed, ambulatory subject supports the diagnosis of Diabetes Mellitus. ADA recommended reference range Performed By: #### B MP, SCAN CBC ####[facility] Exl[address] [place] [address] [place] Potassium [Moles/Vol] 4.8 mmol/L Normal 3.5-5.1 [facility] Comment on above: Performed By: #### B MP, SCAN CBC ####[facility] [address] [place] [address] [facility] Sodium [Moles/Vol] 134 mmol/L Low 136-145 [facility] Comment on above: Performed By: #### B MP, SCAN CBC ####[facility] Clr[address] [place] [address] [facility] Urea nitrogen [Mass/Vol] 22 mg/dL Normal 7-25 [facility] Comment on above: Performed By: #### B MP, SCAN CBC ####[facility] [id number] [place] [address] [facility] Glucose Poct Glucometerson 0 11-08-2022 Glucose [Mass/Vol] 135 mg/dL Normal [facility] Comment on above: Result Comment: [facility] Glucose Reference Range is dependent on time and content of last meal. Glucose of more than 200 mg/dL in a nonstressed, ambulatory subject supports the diagnosis of Diabetes Mellitus.PERFORMED BY:[address] [place], [place] [phone] MEDICAL DIRECTORNATI LAUREN M.D. Performed By: #### G LULS ####Point of Care testing, HIV 1/O/2 Antigen/Antibodyon 11-08-2022 HIV Screen 4th Generation Non-Reactive Normal Non Reactive [facility] Comment on above: Order Comment: Dr. christopher gil putting in a chest tube Result Comment: HIV Negative HIV-1/HIV-2 antibodies and HIV-1 p24 antigen were NOT detected. There is no laboratory evidence of HIV infection. Performed at: - [facility] [id number] Outside Laborer: Crow Frost PhD, Phone: [phone] BY:[address] [place], [place] [phone] MEDICAL DIRECTORNATI LAUREN M.D. Performed By: #### H IV SCREEN ####[facility] , HIV 1 and HIV-2 antibody ass ay with HIV-1 p24 antigen detectionOrdered By: Sanjay Holt on 11-08-2022 HIV 1+2 Ab+HIV1 p24 Ag IA Ql Non-Reactive Non Reactive [facility] Comment on above: HIV NegativeHIV-1/HI V-2 antibodies and HIV-1 p24 antigen were NOTdetected. There is no laboratory evidence of HIV infection.Performed at: - [facility] [id number] Director: Crow Frost PhD, Phone: [phone] Scan and CBCon 11-08-2022 Basophils (Bld) [#/Vol] 0.0 10*3/uL Normal 0.0-0.2 [facility] Comment on above: Performed By: #### B MP, SCAN CBC ####[address] [place] [id number] [facility] Basophils/100 WBC (Bld) 0.2 % Normal . [facility] Comment on above: Performed By: #### B MP, SCAN CBC ####[address] [place] [address] [facility] Eosinophils (Bld) [#/Vol] 0.0 10*3/uL Normal 0.0-0.45 [facility] Comment on above: Performed By: #### B MP, SCAN CBC ####[place] [id number] [facility] Eosinophils/100 WBC (Bld) 0.0 % Normal . [facility] Comment on above: Performed By: #### B MP, SCAN CBC ####[address] [place] [address] [facility] Erythrocyte distribution width (RBC) [Ratio] 14.0 % Normal 12.0-14.8 [facility] Comment on above: Performed By: #### B MP, SCAN CBC ####[address] [place] [address] [facility] Hematocrit (Bld) [Volume fraction] 32.9 % Low 38.8-50.0 [facility] Comment on above: Performed By: #### B MP, SCAN CBC ####[address] [address] [facility] Hemoglobin (Bld) [Mass/Vol] 10.7 g/dL Low 13.0-17.0 [facility] Comment on above: Performed By: #### B MP, SCAN CBC ####[address] [address] [facility] Hypochromasia Moderate Normal [facility] Comment on above: Performed By: #### B MP, SCAN CBC ####[place] [id number] [facility] Lymphocytes (Bld) [#/Vol] 0.7 10*3/uL Low 1.00-4.8 [facility] Comment on above: Performed By: #### B MP, SCAN CBC ####[place] [id number] [facility] Lymphocytes/100 WBC (Bld) 3.7 % Normal . [facility] Comment on above: Performed By: #### B MP, SCAN CBC ####[address] [place] [id number] [facility] MCH (RBC) [Entitic mass] 29.9 pg Normal 27.5-35.2 [facility] Comment on above: Performed By: #### B MP, SCAN CBC ####[place] [id number] [facility] MCV (RBC) [Entitic vol] 92.0 fL Normal 83.5-101 [facility] Comment on above: Performed By: #### B MP, SCAN CBC ####[place] [id number] [facility] Mean Corpuscular HGB Conc 32.5 g/dL Normal 32.5-35.6 [facility] Comment on above: Performed By: #### B MP, SCAN CBC ####[place] [id number] [facility] Monocytes (Bld) [#/Vol] 0.8 10*3/uL Normal 0.0-0.8 [facility] Comment on above: Performed By: #### B MP, SCAN CBC ####[address] [place] [address] [facility] Monocytes/100 WBC (Bld) 4.3 % Normal . [facility] Comment on above: Performed By: #### B MP, SCAN CBC ####[address] [place] [address] [facility] Neutrophils (Bld) [#/Vol] 16.2 10*3/uL High 1.8-7.7 [facility] Comment on above: Performed By: #### B MP, SCAN CBC ####[address] [place] [address] [facility] Neutrophils/100 WBC (Bld) 91.8 % Normal . [facility] Comment on above: Performed By: #### B MP, SCAN CBC ####[address] [address] [facility] NRBC% 0.1 /100{WBC} Normal 0-0.5 [facility] Comment on above: Performed By: #### B MP, SCAN CBC ####[address] [address] [facility] Platelet Estimate Normal Normal Normal [facility] Comment on above: Performed By: #### B MP, SCAN CBC ####[address] [place] [address] [facility] Platelet mean volume (Bld) [Entitic vol] 7.4 fL Normal 6.6-10.1 [facility] Comment on above: Performed By: #### B MP, SCAN CBC ####[address] [address] [facility] Platelet Morphology Normal Normal Normal [facility] Comment on above: Result Comment: PERF ORMED BY:[address] [place], [place] [phone] MEDICAL ALEKSANDAR LAUREN M.D. Performed By: #### B MP, SCAN CBC ####[address] [address] [place] Platelets (Bld) [#/Vol] 391 10*3/uL Normal 150-450 [facility] Comment on above: Performed By: #### B MP, SCAN CBC ####[facility] [id number] Polychromasia Moderate Normal [facility] Comment on above: Performed By: #### B MP, SCAN CBC ####[facility] RBC (Bld) [#/Vol] 3.58 10*6/uL Low 3.90-5.60 [facility] Comment on above: Performed By: #### B MP, SCAN CBC ####[place] [id number] WBC (Bld) [#/Vol] 17.7 10*3/uL High 4.1-10.5 [facility] Comment on above: Performed By: #### B MP, SCAN CBC ####[address] XR chest 1V portableon 11-08 XR chest 1V portable Normal [facility] XR chest 1V portable Normal [facility] [facility] Arterial Blood Gason 023 ABG Base Excess 1.0 mmol/L Normal -3.0-3.0 [facility] Comment on above: Performed By: #### A BG ####Point of Care testing, ABG Frac Inspired O2 100 % Normal [facility] Comment on above: Performed By: #### A BG ####Point of Care testing, ABG Oxygen Content 7.4 mmol/L Normal 6.6-9.7 [facility] Comment on above: Performed By: #### A BG ####Point of Care testing, ABG Oxygen Saturation 98.0 % Normal 95.0-100.0 [facility] Comment on above: Performed By: #### A BG ####Point of Care testing, ABG PCO2 60.2 mm[Hg] Off scale high 35.0-45.0 [facility] Comment on above: Performed By: #### A BG ####Point of Care testing, ABG PEEP [address] [facility] Comment on above: Performed By: #### A BG ####Point of Care testing, ABG PH 7.30 Low 7.35-7.45 [facility] Comment on above: Performed By: #### A BG ####Point of Care testing, ABG PO2 115.1 mm[Hg] High 80.0-100.0 [facility] Comment on above: Performed By: #### A BG ####Point of Care testing, ABG TV [address] [facility] Comment on above: Performed By: #### A BG ####Point of Care testing, CO2 [Moles/Vol] 30.5 mmol/L High 23.0-27.0 [facility] Comment on above: Performed By: #### A BG ####Point of Care testing, HCO3 (Bld) [Moles/Vol] 28.6 mmol/L Normal 23.0-29.[address] [facility] Comment on above: Performed By: #### A BG ####Point of Care testing, Respiratory Critical [facility] Comment on above: Result Comment: Crit ical Value called on: 11/07/2022 at 09:15PERFORMED BY:[place] [place], [place] [phone] MEDICAL DIRECTORNATI LAUREN M.D. Performed By: #### A BG ####Point of Care testing, Set Respiratory Rate 18 [facility] Comment on above: Performed By: #### A BG ####Point of Care testing, VBG Draw Site Right Radial [facility] Comment on above: Performed By: #### A BG ####Point of Care testing, Ventilator Mode AC [facility] Comment on above: Performed By: #### A BG ####Point of Care testing, ABG Base Excess 1.8 mmol/L Normal -3.0-3.0 [facility] Comment on above: Performed By: #### A BG ####Point of Care testing, ABG Frac Inspired O2 100 % Normal [facility] Comment on above: Performed By: #### A BG ####Point of Care testing, ABG Oxygen Content 7.6 mmol/L Normal 6.6-9.7 [facility] Comment on above: Performed By: #### A BG ####Point of Care testing, ABG Oxygen Saturation 91.2 % Low 95.0-100.0 [facility] Comment on above: Performed By: #### A BG ####Point of Care testing, ABG PCO2 41.8 mm[Hg] Normal 35.0-45.0 [facility] Comment on above: Performed By: #### A BG ####Point of Care testing, ABG PEEP [address] [facility] Comment on above: Performed By: #### A BG ####Point of Care testing, ABG PH 7.42 Normal 7.35-7.45 [facility] Comment on above: Performed By: #### A BG ####Point of Care testing, ABG PO2 56.9 mm[Hg] Low 80.0-100.0 [facility] Comment on above: Performed By: #### A BG ####Point of Care testing, ABG Pressure Support 8.0 [facility] Comment on above: Performed By: #### A BG ####Point of Care testing, CO2 [Moles/Vol] 27.7 mmol/L High 23.0-27.0 [facility] Comment on above: Performed By: #### A BG ####Point of Care testing, HCO3 (Bld) [Moles/Vol] 26.4 mmol/L Normal 23.0-29.[address] [facility] Comment on above: Performed By: #### A BG ####Point of Care testing, Oxygen Device BiPAP [facility] Comment on above: Performed By: #### A BG ####Point of Care testing, Respiratory Critical [facility] Comment on above: Result Comment: Crit ical Value called on: 11/07/2022 at 05:41PERFORMED BY:[facility] [place] [place], [place] [phone] MEDICAL DIRECTORNATI LAUREN M.D. Performed By: #### A BG ####Point of Care testing, VBG Draw Site Right Radial [facility] Comment on above: Performed By: #### A BG ####Point of Care testing, Bacteria identification by s terile body fluid cultureOrdered By: Sanjay Holt on 11-07-2022 Bacteria identified Sterile body fluid culture Nom (Unsp spec) Not indicated. . [facility] Bacteria identification dete ction in isolate by cultureOrdered By: Sanjay Holt on 11-07-2022 Bacteria Identification Cx Ql (Isol) Not indicated. . [facility] Comprehensive Metabolic Pane tiago 11-07-2022 Albumin [Mass/Vol] 2.9 g/dL Low 3.5-5.7 [facility] Comment on above: Performed By: #### C MP, SCAN CBC ####[facility] [id number] [place] [id number] [facility] Albumin/Globulin [Mass ratio] 0.9 {ratio} [facility] Comment on above: Performed By: #### C MP, SCAN CBC ####[facility] [id number] [place] [address] [facility] ALP [Catalytic activity/Vol] 107 U/L High 34-104 [facility] Comment on above: Performed By: #### C MP, SCAN CBC ####[facility] [id number] [place] [address] [facility] ALT [Catalytic activity/Vol] 38 U/L Normal 7-52 [facility] Comment on above: Performed By: #### C MP, SCAN CBC ####[facility] [id number] [place] [address] [place] Anion gap [Moles/Vol] 11.7 mmol/L Normal 6.0-15.0 [facility] Comment on above: Performed By: #### C MP, SCAN CBC ####[facility] [id number] [place] [address] [facility] AST [Catalytic activity/Vol] 32 U/L Normal 13-39 [facility] Comment on above: Performed By: #### C MP, SCAN CBC ####[place] [address] [place] [address] [place] Bilirubin [Mass/Vol] 0.5 mg/dL Normal 0.3-1.0 [facility] Comment on above: Performed By: #### C MP, SCAN CBC ####[facility] Izl[address] [place] [address] [place] Calcium [Mass/Vol] 8.4 mg/dL Low 8.6-10.3 [facility] Comment on above: Performed By: #### C MP, SCAN CBC ####[facility] [id number] [place] [address] [place] Chloride [Moles/Vol] 99 mmol/L Normal 98-107 [facility] Comment on above: Performed By: #### C MP, SCAN CBC ####[address] [place] [address] [facility] CO2 [Moles/Vol] 27.6 mmol/L Normal 21.0-31.0 [facility] Comment on above: Performed By: #### C MP, SCAN CBC ####[place] [address] [place] [address] [place] Creatinine [Mass/Vol] 0.55 mg/dL Low 0.70-1.30 [facility] Comment on above: Performed By: #### C MP, SCAN CBC ####[facility] [id number] [place] [address] [place] Creatinine Clr Calc Pharmacy 197.[address] [facility] Comment on above: Result Comment: PERF ORMED BY:[address] [place] [place], [place] [phone] MEDICAL ALEKSANDAR LAUREN M.D. Performed By: #### C MP, SCAN CBC ####[facility] [id number] [place] [address] [place] GFR/1.73 sq M.predicted MDRD (S/P/Bld) [Vol rate/Area] mL/min/{1.73_m2} [facility] Comment on above: Performed By: #### C MP, SCAN CBC ####[facility] Shd7823 [place] [address] [facility] Globulin (S) [Mass/Vol] 3.4 g/dL Normal [facility] Comment on above: Performed By: #### C MP, SCAN CBC ####[facility] [place] [address] [facility] Glucose [Mass/Vol] 128 mg/dL High 70-100 [facility] Comment on above: Result Comment: [facility] Glucose Reference Range is dependent on time and content of last meal. Glucose of more than 200 mg/dL in a nonstressed, ambulatory subject supports the diagnosis of Diabetes Mellitus. ADA recommended reference range Performed By: #### C MP, SCAN CBC ####[place] [address] [place] [address] [facility] Potassium [Moles/Vol] 4.3 mmol/L Normal 3.5-5.1 [facility] Comment on above: Performed By: #### C MP, SCAN CBC ####[place] [id number] [facility] Protein [Mass/Vol] 6.3 g/dL Low 6.4-8.9 [facility] Comment on above: Performed By: #### C MP, SCAN CBC ####[place] [id number] [facility] Sodium [Moles/Vol] 134 mmol/L Low 136-145 [facility] Comment on above: Performed By: #### C MP, SCAN CBC ####[facility] [place] [address] [facility] Urea nitrogen [Mass/Vol] 20 mg/dL Normal 7-25 [facility] Comment on above: Performed By: #### C MP, SCAN CBC ####[facility] [id number] [place], [place] [address] [facility] ECG 12 lead ECGon 11-07-2022 ECG 12 lead ECG Normal [facility] ECG 12 lead ECG Normal [facility] ECG 12 lead ECG Normal [facility] Legionella Pneu 1-6 Antibodi eson 11-07-2022 Legionella Pneu 1-6 Antibodies <0.91 Normal 0.00-0.90 [facility] Comment on above: Order Comment: SPECI MEN HEMOLYZED NEEDS REDRAWN PLEASE Result Comment: Nega tive <0.91 Equivocal 0.91 - 1.09 Positive >1.09 This assay detects IgG/IgM/IgA antibodies to L. pneumophila Groups 1-6 by the EIA method. Performed at: [address] [id number] Outside Laborer: Marla Bravo MD, Phone: [phone] BY:[address] [place] [place], [place] [phone] MEDICAL DIRECTORNATI LAUREN M.D. Performed By: #### L EG PNE AB ####[facility] , Legionella Pneumophilia Ag, Uron 11-07-2022 Legionella Pneumophilia Ag, Ur Negative Normal Negative [facility] Comment on above: Order Comment: SOURC E OF SPECIMEN: earl Result Comment: Pres umptive negative for L. pneumophila serogroup 1 antigen in urine, suggesting no recent or current infection. Legionnaires' disease cannot be ruled out since other serogroups and species may also cause disease. Performed at: [address] [id number] Outside Laborer: Marla Bravo MD, Phone: [phone] BY:[address] [place] [place], [place] [phone] MEDICAL DIRECTORNATI LAUREN M.D. Performed By: #### U RLEGIONELLA ####[facility] , Legionella pneumophila type 1-6 antibody assayOrdered By: Sanjya Holt on 11-07-2022 L. pneumophila 1+2+3+4+5+6 Ab (S) [Titer] <0.91 OD ratio 0.00-0.90 [facility] Comment on above: Negative <0.91 Equiv ocal 0.91 - 1.09 Positive >1.09 This assay detects IgG/IgM/IgA antibodies to L. pneumophila Groups 1-6 by the EIA method.Performed at: - [facility] [id number] Director: Marla Bravo MD, Phone: [phone] Macrocytes LM Ql (Bld)Ordere d By: Netta Wiseman on 11-07-2022 Macrocytes Ql (Bld) Slight [facility] No Panel InformationOrdered By: Sanjay Holt on 11-07-2022 Strep pneumoniae Special Info See comment . [facility] Comment on above: [employer] standards require aculture to be performed on CSF specimens submitted forbacterial antigen testing. (CAP ALEJANDRO.[id number]) Urine specimenswill not be cultured.Performed at: - [address] [id number] Director: Marla Bravo MD, Phone: [phone] No Panel InformationOrdered By: Netta Wiseman on 11-07-2022 Blood Gas Pressure Support 8.0 cmH2O [facility] Oxygen Delivery Device Bipap [facility] Scan and CBCon 11-07-2022 Anisocytosis Ql (Bld) Slight Normal [facility] Comment on above: Performed By: #### C MP, SCAN CBC ####[facility] [id number] [place] [address] [place] Basophils (Bld) [#/Vol] 0.1 10*3/uL Normal 0.0-0.2 [facility] Comment on above: Performed By: #### C MP, SCAN CBC ####[facility] [place] [address] [place] Basophils/100 WBC (Bld) 0.3 % Normal . [facility] Comment on above: Performed By: #### C MP, SCAN CBC ####[facility] [place] [address] [place] Eosinophils (Bld) [#/Vol] 0.0 10*3/uL Normal 0.0-0.45 [facility] Comment on above: Performed By: #### C MP, SCAN CBC ####[facility] [place] [address] [place] Eosinophils/100 WBC (Bld) 0.0 % Normal . [facility] Comment on above: Performed By: #### C MP, SCAN CBC ####[address] Erythrocyte distribution width (RBC) [Ratio] 14.0 % Normal 12.0-14.8 [facility] Comment on above: Performed By: #### C MP, SCAN CBC ####[address] Hematocrit (Bld) [Volume fraction] 35.1 % Low 38.8-50.0 [facility] Comment on above: Performed By: #### C MP, SCAN CBC ####[address] Hemoglobin (Bld) [Mass/Vol] 11.5 g/dL Low 13.0-17.0 [facility] Comment on above: Performed By: #### C MP, SCAN CBC ####[address] Hypochromasia Slight Normal [facility] Comment on above: Performed By: #### C MP, SCAN CBC ####[address] Lymphocytes (Bld) [#/Vol] 1.1 10*3/uL Normal 1.00-4.8 [facility] Comment on above: Performed By: #### C MP, SCAN CBC ####[address] Lymphocytes/100 WBC (Bld) 3.3 % Normal . [facility] Comment on above: Performed By: #### C MP, SCAN CBC ####[address] Macrocytosis Slight Normal [facility] Comment on above: Performed By: #### C MP, SCAN CBC ####[address] MCH (RBC) [Entitic mass] 29.8 pg Normal 27.5-35.2 [facility] Comment on above: Performed By: #### C MP, SCAN CBC ####[place] [place] [address] [facility] MCV (RBC) [Entitic vol] 91.0 fL Normal 83.5-101 [facility] Comment on above: Performed By: #### C MP, SCAN CBC ####[place] [id number] [facility] Mean Corpuscular HGB Conc 32.8 g/dL Normal 32.5-35.6 [facility] Comment on above: Performed By: #### C MP, SCAN CBC ####[place] [id number] [facility] Monocytes (Bld) [#/Vol] 0.8 10*3/uL Normal 0.0-0.8 [facility] Comment on above: Performed By: #### C MP, SCAN CBC ####[place] [id number] [facility] Monocytes/100 WBC (Bld) 2.4 % Normal . [facility] Comment on above: Performed By: #### C MP, SCAN CBC ####[place] [id number] [facility] Neutrophils (Bld) [#/Vol] 30.7 10*3/uL High 1.8-7.7 [facility] Comment on above: Performed By: #### C MP, SCAN CBC ####[place] [id number] [facility] Neutrophils/100 WBC (Bld) 94.0 % Normal . [facility] Comment on above: Performed By: #### C MP, SCAN CBC ####[address] [address] [facility] NRBC% 0.1 /100{WBC} Normal 0-0.5 [facility] Comment on above: Performed By: #### C MP, SCAN CBC ####[place] [id number] [facility] Platelet Estimate Normal Normal Normal [facility] Comment on above: Performed By: #### C MP, SCAN CBC ####[address] [address] [facility] Platelet mean volume (Bld) [Entitic vol] 7.9 fL Normal 6.6-10.1 [facility] Comment on above: Performed By: #### C MP, SCAN CBC ####[address] [address] [facility] Platelet Morphology Normal Normal Normal [facility] Comment on above: Result Comment: PERF ORMED BY:[address] [place], [place] [phone] MEDICAL DIRECTORNATI LAUREN M.D. Performed By: #### C MP, SCAN CBC ####[place] [id number] [facility] Platelets (Bld) [#/Vol] 409 10*3/uL Normal 150-450 [facility] Comment on above: Performed By: #### C MP, SCAN CBC ####[place] [id number] [facility] Polychromasia Slight Normal [facility] Comment on above: Performed By: #### C MP, SCAN CBC ####[place] [id number] [facility] RBC (Bld) [#/Vol] 3.85 10*6/uL Low 3.90-5.60 [facility] Comment on above: Performed By: #### C MP, SCAN CBC ####[place] [id number] [facility] Stomatocytes Slight Normal [facility] Comment on above: Performed By: #### C MP, SCAN CBC ####[place] [id number] [facility] WBC (Bld) [#/Vol] 32.6 10*3/uL High 4.1-10.5 [facility] Comment on above: Performed By: #### C MP, SCAN CBC ####[place] [id number] [facility] Specimen source identifiedOr dered By: Sanjay Holt on 11-07-2022 Specimen source Nom (Unsp spec) Urine . [facility] Strep Pneumoniae Ag, Uron Body Fluid Culture Not indicated. Normal . [facility] Comment on above: Order Comment: SOURC E OF SPECIMEN: earl Performed By: #### U R STP AG ####[facility] , Organism ID Not indicated. Normal . [facility] Comment on above: Order Comment: SOURC E OF SPECIMEN: earl Performed By: #### U R STP AG ####[facility] , Please Note: Normal . [facility] Comment on above: Order Comment: SOURC E OF SPECIMEN: earl Result Comment: [employer] standards require a culture to be performed on CSF specimens submitted for bacterial antigen testing. (CAP ALEJANDRO.[id number]) Urine specimens will not be cultured. Performed at: [address] [id number] Outside Laborer: Marla Bravo MD, Phone: [phone] BY:[address] [place] [place], [place] [phone] MEDICAL DIRECTORNATI LAUREN M.D. Performed By: #### U R STP AG ####[facility] , Specimen source Nom (Unsp spec) Urine Normal . [facility] Comment on above: Order Comment: SOURC E OF SPECIMEN: earl Performed By: #### U R STP AG ####[facility] , Streptococcus Pneumoniae Ag Negative Normal Negative [facility] Comment on above: Order Comment: SOURC E OF SPECIMEN: earl Performed By: #### U R STP AG ####[facility] , Streptococcus pneumoniae ant igen detectionOrdered By: Sanjay Holt on 11-07-2022 S. pneumoniae Ag Ql (Unsp spec) Negative Negative [facility] Triglycerideson 11-07-2022 Triglyceride [Mass/Vol] 222 mg/dL High 0-149 [facility] Comment on above: Order Comment: Comme nt please run off blood drawn this morning Result Comment: TRIG ATP III CLASSIFICATION TRIG less than 150 mg/dL Normal TRIG 150-199 mg/dL Borderline high TRIG 200-500 mg/dL High TRIG greater than 500 mg/dL Very high Standard traceable to the Center for Disease Conrtrol and Prevention (CDC) test method.PERFORMED BY:[facility] [place], [place] [phone] MEDICAL DIRECTORNATI LAUREN M.D. Performed By: #### T RIG ####[facility] [id number] [place] [address] [facility] Urine Legionella antigen det ectionOrdered By: Sanjay Holt on 11-07-2022 Legionella sp Ag Ql (U) Negative Negative [facility] Comment on above: Presumptive negative for L. pneumophila serogroup 1 antigenin urine, suggesting no recent or current infection.Legionnaires' disease cannot be ruled out since otherserogroups and species may also cause disease.Performed at: - [address] [id number] Director: Marla Bravo MD, Phone: [phone] XR chest 1V portableon 11-07 XR chest 1V portable Normal [facility] XR chest 1V portable Normal [facility] CT chest w conon 11-06-2022 CT chest w con Normal [facility] Comprehensive Metabolic Pane tiago 11-06-2022 Albumin [Mass/Vol] 2.8 g/dL Low 3.5-5.7 [facility] Comment on above: Order Comment: draw at 0500 Performed By: #### C MP, SCAN CBC ####[facility] [id number] [place] [address] [place] Albumin/Globulin [Mass ratio] 0.8 {ratio} Normal [facility] Comment on above: Order Comment: draw at 0500 Performed By: #### C MP, SCAN CBC ####[facility] [id number] [place] [address] [facility] ALP [Catalytic activity/Vol] 96 U/L Normal 34-104 [facility] Comment on above: Order Comment: draw at 0500 Performed By: #### C MP, SCAN CBC ####[facility] [id number] [place] [address] [facility] ALT [Catalytic activity/Vol] 17 U/L Normal 7-52 [facility] Comment on above: Order Comment: draw at 0500 Performed By: #### C MP, SCAN CBC ####[facility] [id number] [place] [address] [facility] Anion gap [Moles/Vol] 11.9 mmol/L Normal 6.0-15.0 [facility] Comment on above: Order Comment: draw at 0500 Performed By: #### C MP, SCAN CBC ####[address] [address] [facility] AST [Catalytic activity/Vol] 11 U/L Low 13-39 [facility] Comment on above: Order Comment: draw at 0500 Performed By: #### C MP, SCAN CBC ####[address] [address] [facility] Bilirubin [Mass/Vol] 0.5 mg/dL Normal 0.3-1.0 [facility] Comment on above: Order Comment: draw at 0500 Performed By: #### C MP, SCAN CBC ####[address] [address] [facility] Calcium [Mass/Vol] 8.4 mg/dL Low 8.6-10.3 [facility] Comment on above: Order Comment: draw at 0500 Performed By: #### C MP, SCAN CBC ####[address] [address] [facility] Chloride [Moles/Vol] 101 mmol/L Normal 98-107 [facility] Comment on above: Order Comment: draw at 0500 Performed By: #### C MP, SCAN CBC ####[address] [address] [facility] CO2 [Moles/Vol] 26.8 mmol/L Normal 21.0-31.0 [facility] Comment on above: Order Comment: draw at 0500 Performed By: #### C MP, SCAN CBC ####[facility] [id number] [place], [place] [address] [facility] Creatinine [Mass/Vol] 0.51 mg/dL Low 0.70-1.30 [facility] Comment on above: Order Comment: draw at 0500 Performed By: #### C MP, SCAN CBC ####[place] [address] [place] [address] [facility] Creatinine Clr Calc Pharmacy 213.[address] [facility] Comment on above: Order Comment: draw at 0500 Result Comment: PERF ORMED BY:[address] [place], [place] [phone] MEDICAL ALEKSANDAR LAUREN M.D. Performed By: #### C MP, SCAN CBC ####[place] [address] [place] [address] [facility] GFR/1.73 sq M.predicted MDRD (S/P/Bld) [Vol rate/Area] mL/min/{1.73_m2} [facility] Comment on above: Order Comment: draw at 0500 Performed By: #### C MP, SCAN CBC ####[place] [address] [place] [address] [facility] Globulin (S) [Mass/Vol] 3.4 g/dL [facility] Comment on above: Order Comment: draw at 0500 Performed By: #### C MP, SCAN CBC ####[place] [id number] [facility] Glucose [Mass/Vol] 127 mg/dL High 70-100 [facility] Comment on above: Order Comment: draw at 0500 Result Comment: [place] Glucose Reference Range is dependent on time and content of last meal. Glucose of more than 200 mg/dL in a nonstressed, ambulatory subject supports the diagnosis of Diabetes Mellitus. ADA recommended reference range Performed By: #### C MP, SCAN CBC ####[place] [address] [place] [id number] [facility] Potassium [Moles/Vol] 3.7 mmol/L Normal 3.5-5.1 [facility] Comment on above: Order Comment: draw at 0500 Performed By: #### C MP, SCAN CBC ####[facility] [id number] [place] [address] [facility] Protein [Mass/Vol] 6.2 g/dL Low 6.4-8.9 [facility] Comment on above: Order Comment: draw at 0500 Performed By: #### C MP, SCAN CBC ####[facility] [address] [place] [address] [facility] Sodium [Moles/Vol] 136 mmol/L Normal 136-145 [facility] Comment on above: Order Comment: draw at 0500 Performed By: #### C MP, SCAN CBC ####[address] [place] [address] [facility] Urea nitrogen [Mass/Vol] 15 mg/dL Normal 7-25 [facility] Comment on above: Order Comment: draw at 0500 Performed By: #### C MP, SCAN CBC ####[address] [place] [address] [facility] Helmet cell detectionOrdered By: Netta Wiseman on 11-06-2022 Helmet cells LM Ql (Bld) Slight [facility] Scan and CBCon 11-06-2022 Basophils (Bld) [#/Vol] 0.1 10*3/uL Normal 0.0-0.2 [facility] Comment on above: Order Comment: draw at 0500 Performed By: #### C MP, SCAN CBC ####[address] [place] [address] [place] Basophils/100 WBC (Bld) 0.2 % Normal . [facility] Comment on above: Order Comment: draw at 0500 Performed By: #### C MP, SCAN CBC ####[facility] [place] [address] [place] Eosinophils (Bld) [#/Vol] 0.0 10*3/uL Normal 0.0-0.45 [facility] Comment on above: Order Comment: draw at 0500 Performed By: #### C MP, SCAN CBC ####[address] [place] [address] [place] Eosinophils/100 WBC (Bld) 0.0 % Normal . [facility] Comment on above: Order Comment: draw at 0500 Performed By: #### C MP, SCAN CBC ####[address] Erythrocyte distribution width (RBC) [Ratio] 13.9 % Normal 12.0-14.8 [facility] Comment on above: Order Comment: draw at 0500 Performed By: #### C MP, SCAN CBC ####[address] Helmet Cells Slight Normal [facility] Comment on above: Order Comment: draw at 0500 Performed By: #### C MP, SCAN CBC ####[address] Hematocrit (Bld) [Volume fraction] 34.6 % Low 38.8-50.0 [facility] Comment on above: Order Comment: draw at 0500 Performed By: #### C MP, SCAN CBC ####[address] Hemoglobin (Bld) [Mass/Vol] 11.2 g/dL Low 13.0-17.0 [facility] Comment on above: Order Comment: draw at 0500 Performed By: #### C MP, SCAN CBC ####[address] Hypochromasia Slight Normal [facility] Comment on above: Order Comment: draw at 0500 Performed By: #### C MP, SCAN CBC ####[address] Lymphocytes (Bld) [#/Vol] 1.1 10*3/uL Normal 1.00-4.8 [facility] Comment on above: Order Comment: draw at 0500 Performed By: #### C MP, SCAN CBC ####[address] Lymphocytes/100 WBC (Bld) 3.5 % Normal . [facility] Comment on above: Order Comment: draw at 0500 Performed By: #### C MP, SCAN CBC ####[id number] [facility] MCH (RBC) [Entitic mass] 29.7 pg Normal 27.5-35.2 [facility] Comment on above: Order Comment: draw at 0500 Performed By: #### C MP, SCAN CBC ####[id number] [facility] MCV (RBC) [Entitic vol] 91.8 fL Normal 83.5-101 [facility] Comment on above: Order Comment: draw at 0500 Performed By: #### C MP, SCAN CBC ####[address] Mean Corpuscular HGB Conc 32.4 g/dL Low 32.5-35.6 [facility] Comment on above: Order Comment: draw at 0500 Performed By: #### C MP, SCAN CBC ####[address] Monocytes (Bld) [#/Vol] 1.0 10*3/uL High 0.0-0.8 [facility] Comment on above: Order Comment: draw at 0500 Performed By: #### C MP, SCAN CBC ####[address] Monocytes/100 WBC (Bld) 3.3 % Normal . [facility] Comment on above: Order Comment: draw at 0500 Performed By: #### C MP, SCAN CBC ####[address] Neutrophils (Bld) [#/Vol] 28.0 10*3/uL High 1.8-7.7 [facility] Comment on above: Order Comment: draw at 0500 Performed By: #### C MP, SCAN CBC ####[address] Neutrophils/100 WBC (Bld) 93.0 % Normal . [facility] Comment on above: Order Comment: draw at 0500 Performed By: #### C MP, SCAN CBC ####[address] [address] [facility] NRBC% 0.0 /100{WBC} Normal 0-0.5 [facility] Comment on above: Order Comment: draw at 0500 Performed By: #### C MP, SCAN CBC ####[address] [place] [id number] [facility] Platelet Estimate Normal Normal Normal [facility] Comment on above: Order Comment: draw at 0500 Performed By: #### C MP, SCAN CBC ####[address] [place] [id number] [facility] Platelet mean volume (Bld) [Entitic vol] 8.0 fL Normal 6.6-10.1 [facility] Comment on above: Order Comment: draw at 0500 Performed By: #### C MP, SCAN CBC ####[id number] [facility] Platelet Morphology Normal Normal Normal [facility] Comment on above: Order Comment: draw at 0500 Result Comment: PERF ORMED BY:[address] NGOZIRosalbaAlfreditoAVILLA, [place] [phone] MEDICAL ALEKSANDAR LAUREN M.D. Performed By: #### C MP, SCAN CBC ####[id number] [facility] Platelets (Bld) [#/Vol] 346 10*3/uL Normal 150-450 [facility] Comment on above: Order Comment: draw at 0500 Performed By: #### C MP, SCAN CBC ####[id number] [facility] RBC (Bld) [#/Vol] 3.77 10*6/uL Low 3.90-5.60 [facility] Comment on above: Order Comment: draw at 0500 Performed By: #### C MP, SCAN CBC ####[id number] [facility] WBC (Bld) [#/Vol] 30.2 10*3/uL High 4.1-10.5 [facility] Comment on above: Order Comment: draw at 0500 Performed By: #### C MP, SCAN CBC ####[facility] [address] [place] [address] [facility] Aerobic Cultureon 11-05-2022 Aerobic Culture [facility] Comment on above: Performed By: #### G S, AERC ####[facility] [address] [place] [address] [facility] Arterial Blood Gason 023 ABG Base Excess 0.9 mmol/L Normal -3.0-3.0 [facility] Comment on above: Performed By: #### A BG ####Point of Care testing, ABG Frac Inspired O2 55 % [facility] Comment on above: Performed By: #### A BG ####Point of Care testing, ABG Liter Flow [address] [facility] Comment on above: Performed By: #### A BG ####Point of Care testing, ABG Oxygen Content 6.6 mmol/L Normal 6.6-9.7 [facility] Comment on above: Performed By: #### A BG ####Point of Care testing, ABG Oxygen Saturation 89.0 % Low 95.0-100.0 [facility] Comment on above: Performed By: #### A BG ####Point of Care testing, ABG PCO2, Temp Corrected 40.4 mm[Hg] Normal 35.0-45.0 [facility] Comment on above: Performed By: #### A BG ####Point of Care testing, ABG PH, Temp Corrected 7.41 Normal 7.35-7.45 [facility] Comment on above: Performed By: #### A BG ####Point of Care testing, ABG PO2, Temperature Corrected 61.0 mm[Hg] Low 80.0-100.0 [facility] Comment on above: Performed By: #### A BG ####Point of Care testing, CO2 [Moles/Vol] 25.8 mmol/L Normal 23.0-27.0 [facility] Comment on above: Performed By: #### A BG ####Point of Care testing, HCO3 (Bld) [Moles/Vol] 24.7 mmol/L Normal 23.0-29.[address] [facility] Comment on above: Performed By: #### A BG ####Point of Care testing, Oxygen Device Venti Mask [facility] Comment on above: Performed By: #### A BG ####Point of Care testing, Respiratory Critical Normal [facility] Comment on above: Result Comment: Crit ical Value called on: 11/05/2022 at 09:39PERFORMED BY:[address] MOCKAlfreditoALERIRIE, [place] [phone] MEDICAL DIRECTORNAIT LAUREN M.D. Performed By: #### A BG ####Point of Care testing, VBG Draw Site Right Radial [facility] Comment on above: Performed By: #### A BG ####Point of Care testing, B-Type Natriuretic Peptideon 11-05-2022 Natriuretic peptide B (Bld) [Mass/Vol] 130.0 pg/mL High 5-100 [facility] Comment on above: Result Comment: PERF ORMED BY:[address] [place], [place] [phone] MEDICAL DIRECTORNATI LAUREN M.D. Performed By: #### B HEAT TREAT TECHNICIAN, LACTIC, HS TROP, HEPATIC ####[address]#### PROCALCITONIN ####[facility] , Basic Metabolic Panelon 10-09 Anion gap [Moles/Vol] 10.1 mmol/L Normal 6.0-15.0 [facility] Comment on above: Performed By: #### E SR, BMP, MG, CBC ####[facility] [address] [place] [address] Calcium [Mass/Vol] 7.8 mg/dL Low 8.6-10.3 [facility] Comment on above: Performed By: #### E SR, BMP, MG, CBC ####[facility] [address] [place] [id number] [facility] Chloride [Moles/Vol] 101 mmol/L Normal 98-107 [facility] Comment on above: Performed By: #### E SR, BMP, MG, CBC ####[address] [place] [id number] [facility] CO2 [Moles/Vol] 27.1 mmol/L Normal 21.0-31.0 [facility] Comment on above: Performed By: #### E SR, BMP, MG, CBC ####[id number] [facility] Creatinine [Mass/Vol] 0.59 mg/dL Low 0.70-1.30 [facility] Comment on above: Performed By: #### E SR, BMP, MG, CBC ####[address] Creatinine Clr Calc Pharmacy 169.[address] [facility] Comment on above: Performed By: #### E SR, BMP, MG, CBC ####[place] [address] [place] GFR/1.73 sq M.predicted MDRD (S/P/Bld) [Vol rate/Area] mL/min/{1.73_m2} [facility] Comment on above: Performed By: #### E SR, BMP, MG, CBC ####[address] Glucose [Mass/Vol] 135 mg/dL High 70-100 [facility] Comment on above: Result Comment: [facility] Glucose Reference Range is dependent on time and content of last meal. Glucose of more than 200 mg/dL in a nonstressed, ambulatory subject supports the diagnosis of Diabetes Mellitus. ADA recommended reference range Performed By: #### E SR, BMP, MG, CBC ####[address] [place] [address] [facility] Potassium [Moles/Vol] 3.2 mmol/L Low 3.5-5.1 [facility] Comment on above: Performed By: #### E SR, BMP, MG, CBC ####[facility] [place] [address] [facility] Sodium [Moles/Vol] 135 mmol/L Low 136-145 [facility] Comment on above: Performed By: #### E SR, BMP, MG, CBC ####[facility] [place] [address] [facility] Urea nitrogen [Mass/Vol] 13 mg/dL Normal 7-25 [facility] Comment on above: Performed By: #### E SR, BMP, MG, CBC ####[facility] [place] [address] [facility] BioFire Not Detectedon 11-05 BioFire Not Detected Not detected Normal Not Detecte [facility] Comment on above: Result Comment: This is a duplicate RP2.1 COVID (PCR) result to be used for statistical tracking purpose only.PERFORMED BY:[facility] [place], [place] [phone] MEDICAL DIRECTORNATI LAUREN M.D. Performed By: #### B IOFIRECOVNOTDE, RESP PANEL UPP. ####[id number] [facility] Blood Cultureon 11-05-2022 Bacteria identified Cx Nom (Bld) NO GROWTH 5 DAYS PERFORMED BY: [facility] [address] [place] [id number] PATHOLOGIST DATA TECHNICAL LEAD NATI LAUREN M.D. [facility] Comment on above: Performed By: #### C UBLD ####[address] [place] [id number] [facility] CARDIAC RON 3-6on 3 CK [Catalytic activity/Vol] 45 U/L Normal 39-308 [facility] Comment on above: Performed By: #### C MREP #### [facility] [address] [place], [place] [address] Dr. Epi Goldstein CK.MB [Mass/Vol] 0.75 ng/mL Normal <=3.60 [facility] Comment on above: Performed By: #### C MREP #### [facility] [address] [place] [address] [address] Epi Goldstein HSTROP 7.0 pg/mL Normal 4.0-76.1 [facility] Comment on above: Result Comment: CUT- OFF POINTS HAVE BEEN ESTABLISHED BASED ON THE FOURTH UNIVERSAL DEFINITIONS OF MYOCARDIAL INFARCTION. THE UPPER REFERENCE LIMIT (URL) OF TROPONIN, DEFINED THE 99TH PERCENTILE OF cTnI DISTRIBUTION IN A REFERENCE POPULATION, HAS BEEN CONFIRMED THE DECISION THRESHOLD FOR [place] DIAGNOSIS. Performed By: #### C MREP #### [facility] [address] [place] [address] [address] Epi Goldstein COVID-19 Detected/Not Detect edOrdered By: Netta Wiseman on 11-05-2022 SARS-CoV-2 (COVID-19) RNA ROWENA+non-probe Ql (Nph) Not detected Not Detecte [facility] Comment on above: This is a duplicate RP2.1 COVID (PCR) result to be used for statistical tracking purpose only. Complete Blood Count Auto Di ffon 11-05-2022 Basophils (Bld) [#/Vol] 0.1 10*3/uL Normal 0.0-0.2 [facility] Comment on above: Performed By: #### E SR, BMP, MG, CBC ####[facility] [id number] Basophils/100 WBC (Bld) 0.5 % Normal . [facility] Comment on above: Performed By: #### E SR, BMP, MG, CBC ####[facility] Oal[address] Eosinophils (Bld) [#/Vol] 0.1 10*3/uL Normal 0.0-0.45 [facility] Comment on above: Performed By: #### E SR, BMP, MG, CBC ####[facility] Ipr[address] Eosinophils/100 WBC (Bld) 0.5 % Normal . [facility] Comment on above: Performed By: #### E SR, BMP, MG, CBC ####[facility] [id number] Erythrocyte distribution width (RBC) [Ratio] 13.2 % Normal 12.0-14.8 [facility] Comment on above: Performed By: #### E SR, BMP, MG, CBC ####[address] Hematocrit (Bld) [Volume fraction] 30.8 % Low 38.8-50.0 [facility] Comment on above: Performed By: #### E SR, BMP, MG, CBC ####[address] Hemoglobin (Bld) [Mass/Vol] 10.2 g/dL Low 13.0-17.0 [facility] Comment on above: Performed By: #### E SR, BMP, MG, CBC ####[address] Lymphocytes (Bld) [#/Vol] 1.5 10*3/uL Normal 1.00-4.8 [facility] Comment on above: Performed By: #### E SR, BMP, MG, CBC ####[address] Lymphocytes/100 WBC (Bld) 8.7 % Normal . [facility] Comment on above: Performed By: #### E SR, BMP, MG, CBC ####[address] MCH (RBC) [Entitic mass] 30.0 pg Normal 27.5-35.2 [facility] Comment on above: Performed By: #### E SR, BMP, MG, CBC ####[address] MCV (RBC) [Entitic vol] 90.7 fL Normal 83.5-101 [facility] Comment on above: Performed By: #### E SR, BMP, MG, CBC ####[address] Mean Corpuscular HGB Conc 33.1 g/dL Normal 32.5-35.6 [facility] Comment on above: Performed By: #### E SR, BMP, MG, CBC ####[address] Monocytes (Bld) [#/Vol] 1.4 10*3/uL High 0.0-0.8 [facility] Comment on above: Performed By: #### E SR, BMP, MG, CBC ####[address] Monocytes/100 WBC (Bld) 8.3 % Normal . [facility] Comment on above: Performed By: #### E SR, BMP, MG, CBC ####[address] Neutrophils (Bld) [#/Vol] 14.3 10*3/uL High 1.8-7.7 [facility] Comment on above: Performed By: #### E SR, BMP, MG, CBC ####[address] Neutrophils/100 WBC (Bld) 82.0 % Normal . [facility] Comment on above: Performed By: #### E SR, BMP, MG, CBC ####[address] NRBC% 0.1 /100{WBC} Normal 0-0.5 [facility] Comment on above: Performed By: #### E SR, BMP, MG, CBC ####[address] Platelet mean volume (Bld) [Entitic vol] 7.8 fL Normal 6.6-10.1 [facility] Comment on above: Performed By: #### E SR, BMP, MG, CBC ####[address] Platelets (Bld) [#/Vol] 319 10*3/uL Normal 150-450 [facility] Comment on above: Performed By: #### E SR, BMP, MG, CBC ####[address] RBC (Bld) [#/Vol] 3.39 10*6/uL Low 3.90-5.60 [facility] Comment on above: Performed By: #### E SR, BMP, MG, CBC ####[place] [address] WBC (Bld) [#/Vol] 17.4 10*3/uL High 4.1-10.5 [facility] Comment on above: Performed By: #### E SR, BMP, MG, CBC ####[address] ECG 12 lead ECGon 11-05-2022 ECG 12 lead ECG Normal [facility] Erythrocyte Sedimentation Ra tristin 11-05-2022 ESR (Bld) [Velocity] 82 mm/h High 0-19 [facility] Comment on above: Result Comment: PERF ORMED BY:[address] [place], [place] [phone] MEDICAL DIRECTORNATI LAUREN M.D. Performed By: #### E SR, BMP, MG, CBC ####[address] Erythrocyte sedimentation ra te by Photometric methodOrdered By: Annabel Boo on 11-05-2022 ESR Photometric method (Bld) [Velocity] 82 mm/hr 0-19 [facility] Gram Stainon 11-05-2022 Microscopic observation Gram stain Nom (Unsp spec) Normal [facility] Comment on above: Performed By: #### G S, AERC ####[address] Hepatic Panelon 11-05-2022 Albumin [Mass/Vol] 2.9 g/dL Low 3.5-5.7 [facility] Comment on above: Performed By: #### B HEAT TREAT TECHNICIAN, LACTIC, HS TROP, HEPATIC ####[address]#### PROCALCITONIN ####[facility] , Albumin/Globulin [Mass ratio] 1.0 {ratio} Normal [facility] Comment on above: Performed By: #### B HEAT TREAT TECHNICIAN, LACTIC, HS TROP, HEPATIC ####[address]#### PROCALCITONIN ####[facility] , ALP [Catalytic activity/Vol] 79 U/L Normal 34-104 [facility] Comment on above: Result Comment: PERF ORMED BY:[address] [place], [place] [phone] MEDICAL DIRECTORNATI LAUREN M.D. Performed By: #### B HEAT TREAT TECHNICIAN, LACTIC, HS TROP, HEPATIC ####[address]#### PROCALCITONIN ####[facility] , ALT [Catalytic activity/Vol] 24 U/L Normal 7-52 [facility] Comment on above: Performed By: #### B HEAT TREAT TECHNICIAN, LACTIC, HS TROP, HEPATIC ####[address]#### PROCALCITONIN ####[facility] , AST [Catalytic activity/Vol] 12 U/L Low 13-39 [facility] Comment on above: Performed By: #### B HEAT TREAT TECHNICIAN, LACTIC, HS TROP, HEPATIC ####[address]#### PROCALCITONIN ####[facility] , Bilirubin [Mass/Vol] 0.4 mg/dL Normal 0.3-1.0 [facility] Comment on above: Performed By: #### B HEAT TREAT TECHNICIAN, LACTIC, HS TROP, HEPATIC ####[address]#### PROCALCITONIN ####[facility] , Bilirubin,Indirect 0.3 mg/dL Normal [facility] Comment on above: Performed By: #### B HEAT TREAT TECHNICIAN, LACTIC, HS TROP, HEPATIC ####[place] [address]#### PROCALCITONIN ####[facility] , Bilirubin.indirect [Mass/Vol] 0.10 mg/dL Normal 0.03-0.18 [facility] Comment on above: Performed By: #### B HEAT TREAT TECHNICIAN, LACTIC, HS TROP, HEPATIC ####[place] [address] [place]#### PROCALCITONIN ####[facility] , Globulin (S) [Mass/Vol] 2.8 g/dL Normal [facility] Comment on above: Performed By: #### B HEAT TREAT TECHNICIAN, LACTIC, HS TROP, HEPATIC ####[address]#### PROCALCITONIN ####[facility] , Protein [Mass/Vol] 5.7 g/dL Low 6.4-8.9 [facility] Comment on above: Performed By: #### B HEAT TREAT TECHNICIAN, LACTIC, HS TROP, HEPATIC ####[place] [address] [place]#### PROCALCITONIN ####[facility] , LACTATE/LACTIC ACIDon 2022 Lactate [Moles/Vol] 1.1 mmol/L Normal 0.4-2.0 [facility] Comment on above: Performed By: #### L ACT #### [facility] [address] [place] [address] [address] Epi Goldstein Lactate [Moles/volume] in Se rum or PlasmaOrdered By: Netta Wiseman on 11-05-2022 Lactate [Moles/Vol] 0.9 mmol/L 0.5-2.2 [facility] Lactic Acidon 11-05-2022 Lactate [Moles/Vol] 0.9 mmol/L Normal 0.5-2.2 [facility] Comment on above: Result Comment: PERF ORMED BY:[address] [place], [place] [phone] MEDICAL DIRECTORNATI LAUREN M.D. Performed By: #### B HEAT TREAT TECHNICIAN, LACTIC, HS TROP, HEPATIC ####[address] [place] [address] [facility]#### PROCALCITONIN ####[facility] , Magnesiumon 11-05-2022 Magnesium [Mass/Vol] 1.9 mg/dL Normal 1.9-2.7 [facility] Comment on above: Result Comment: PERF ORMED BY:[address] [place], [place] [phone] MEDICAL DIRECTORNATI LAUREN M.D. Performed By: #### E SR, BMP, MG, CBC ####[place] [address] [place] [address] [facility] Natriuretic peptide B [Mass/ Vol]Ordered By: Netta Wiseman on 11-05-2022 Natriuretic peptide B (Bld) [Mass/Vol] 130.0 pg/mL 5-100 [facility] No Panel InformationOrdered By: Netta Wiseman on 11-05-2022 Arterial Blood pCO2 (Temp correct) 40.4 mm[Hg] 35.0-45.0 [facility] Arterial Blood pH (Temp corrected) 7.41 7.35-7.45 [facility] Arterial Blood pO2 (Temp corrected) 61.0 mm[Hg] 80.0-100.0 [facility] Blood Gas Liter Flow 14 L/min [facility] Procalcitoninon 11-05-2022 Procalcitonin 0.32 ng/mL High 0.00-0.08 [facility] Comment on above: Result Comment: A [...] <2 ng/mL are obtained. Performed at: - [facility] [id number] Outside Laborer: Marla Bravo MD, Phone: [phone] BY:[address] [place], [place] [phone] MEDICAL DIRECTORNATI LAUREN M.D. Performed By: #### B HEAT TREAT TECHNICIAN, LACTIC, HS TROP, HEPATIC ####[place] [address]#### PROCALCITONIN ####[facility] , Respiratory (Upper) Panel, P CRon 11-05-2022 Respiratory (Upper) Panel, PCR Normal [facility] Comment on above: Performed By: #### B IOFIRECOVNOTDE, RESP PANEL UPP. ####[facility] Rhx[address] Serum procalcitonin measurem entOrdered By: Netta Wiseman on 11-05-2022 Procalcitonin [Mass/Vol] 0.32 ng/mL 0.00-0.08 [facility] Comment on above: A procalcitonin (PCT [...] any concentrations <2 ng/mL are obtained.Performed at: [facility] [address] [id number] Director: Marla Bravo MD, Phone: [phone] Troponin I High Sensitivityo n 11-05-2022 Troponin I High Sensitivity 17.7 pg/mL Normal 0.0-20.0 [facility] Comment on above: Result Comment: PERF ORMED BY:[facility], [place] [phone] MEDICAL DIRECTORNATI LAUREN M.D. Performed By: #### B HEAT TREAT TECHNICIAN, LACTIC, HS TROP, HEPATIC ####[facility] [place] [address] [facility]#### PROCALCITONIN ####[facility] , XR chest 1V portableon 11-05 XR chest 1V portable Normal [facility] CARDIAC RON ADMITon 023 CK [Catalytic activity/Vol] 67 U/L Normal 39-308 [facility] Comment on above: Performed By: #### B YOSEPH, CMADM #### [facility] [address] [place] [address] [address] Epi Goldstein CK.MB [Mass/Vol] 0.75 ng/mL Normal <=3.60 [facility] Comment on above: Performed By: #### B MP, CMADM #### [facility] [address] [place] [address] [address] Epi Goldstein HSTROP 6.4 pg/mL Normal 4.0-76.1 [facility] Comment on above: Result Comment: CUT- OFF POINTS HAVE BEEN ESTABLISHED BASED ON THE FOURTH UNIVERSAL DEFINITIONS OF MYOCARDIAL INFARCTION. THE UPPER REFERENCE LIMIT (URL) OF TROPONIN, DEFINED THE 99TH PERCENTILE OF cTnI DISTRIBUTION IN A REFERENCE POPULATION, HAS BEEN CONFIRMED THE DECISION THRESHOLD FOR [place] DIAGNOSIS. Performed By: #### B YOSEPH, CMADM #### [facility] [address] [place] [address] [address] Epi Goldstein PRATIK 37 ng/mL Normal 16-96 [facility] Comment on above: Performed By: #### B MP, CMADM #### [facility] [address] [place] [address] [address] Epi Goldstein CBC AUTO DIFFon 11-04-2022 BASO # 0.0 103/ul Normal 0.0-0.1 [facility] Comment on above: Performed By: #### C BC #### [facility] [address] [place] [address] Dr. Epi Goldstein Basophils/100 WBC (Bld) 0.2 % Normal 0.2-2.0 [facility] Comment on above: Performed By: #### C BC #### [facility] [address] [place] [address] Dr. Epi Goldstein EO # 0.0 103/ul Normal 0.0-0.7 [facility] Comment on above: Performed By: #### C BC #### [facility] [address] [place] [address] Dr. Epi Goldstein Eosinophils/100 WBC (Bld) 0.2 % Critically low 0.9-7.0 [facility] Comment on above: Performed By: #### C BC #### [facility] [address] [place] [address] Dr. Epi Goldstein Erythrocyte distribution width (RBC) [Ratio] 12.5 % Normal 11.0-15.0 [facility] Comment on above: Performed By: #### C BC #### [facility] [address] [place] [address] Dr. Epi Goldstein Hematocrit (Bld) [Volume fraction] 35.9 % Critically low 42.0-54.0 [facility] Comment on above: Performed By: #### C BC #### [facility] [address] [place] [address] Dr. Epi Goldstein Hemoglobin (Bld) [Mass/Vol] 12.0 g/dL Critically low 14.0-18.0 [facility] Comment on above: Performed By: #### C BC #### [facility] [address] [place] [address] Dr. Epi Goldstein IG # 0.13 10e3/ul Critically high 0.00-0.03 [facility] Comment on above: Performed By: #### C BC #### [facility] [address] [place] [address] Dr. Epi Goldstein IG % 0.6 % Critically high 0.0-0.5 [facility] Comment on above: Performed By: #### C BC #### [facility] [address] [place] [address] Dr. Epi Goldstein LYMPH # 2.7 103/ul Normal 1.2-3.8 [facility] Comment on above: Performed By: #### C BC #### [facility] [address] [place] [address] Dr. Epi Goldstein Lymphocytes/100 WBC (Bld) 13.0 % Critically low 20.5-60.0 [facility] Comment on above: Performed By: #### C BC #### [facility] [address] [place] [address] Dr. Epi Goldstein MANUAL DIFF REQ NO Normal [facility] Comment on above: Performed By: #### C BC #### [facility] [address] [place] [address] Dr. Epi Goldstein MCH (RBC) [Entitic mass] 30.5 pg Normal 25.9-34.0 [facility] Comment on above: Performed By: #### C BC #### [facility] [address] [place] [address] Dr. Epi Goldstein MCHC (RBC) [Mass/Vol] 33.4 g/dL Normal 29.9-35.2 [facility] Comment on above: Performed By: #### C BC #### [facility] [address] [place] [address] Dr. Epi Goldstein MCV (RBC) [Entitic vol] 91.1 fL Normal 80.0-94.0 [facility] Comment on above: Performed By: #### C BC #### [facility] [address] [address] [address] Epi Goldstein MONO # 1.7 103/ul Critically high 0.3-0.8 [facility] Comment on above: Performed By: #### C BC #### [facility] [address] [address] [address] Epi Goldstein Monocytes/100 WBC (Bld) 8.4 % Normal 1.7-12.0 [facility] Comment on above: Performed By: #### C BC #### [facility] [address] [place] [address] Dr. Epi Goldstein NEUT # 16.0 103/ul Critically high 1.4-6.5 [facility] Comment on above: Performed By: #### C BC #### [facility] [address] [place] [address] Dr. Epi Goldstein Neutrophils/100 WBC (Bld) 77.6 % Critically high 43.0-75.0 [facility] Comment on above: Performed By: #### C BC #### [facility] [address] [place] [address] Dr. Epi Goldstein Platelet mean volume (Bld) [Entitic vol] 9.9 fL Normal 9.5-13.5 [facility] Comment on above: Performed By: #### C BC #### [facility] [address] [place] [address] Dr. Epi Goldstein PLT 359 103/ul Normal 150-450 [facility] Comment on above: Performed By: #### C BC #### [facility] [address] [place] [address] Dr. Epi Goldstein RBC 3.94 106/ul Critically low 4.70-6.10 [facility] Comment on above: Performed By: #### C BC #### [facility] [address] [place] [address] Dr. Epi Goldstein WBC 20.6 103/ul Critically high 4.0-11.0 [facility] Comment on above: Result Comment: revi ewed slide to confirm Performed By: #### C BC #### [facility] [id number] Epi Goldstein CTA CHEST WO W CONon 023 CTA CHEST WO W CON EXAMINATION: [...] WOODS Date: 2022-11-04 21:02 Normal [facility] CULTURE BLOODon 11-04-2022 Microscopic examination of blood, culture Culture Observations: NO GROWTH AT 5 DAYS. Normal [facility] Comment on above: Performed By: #### L ACT #### [facility] [address] [place] [address] Dr. Epi Goldstein Microscopic examination of blood, culture Culture Observations: NO GROWTH AT 5 DAYS. Normal [facility] Comment on above: Performed By: #### L ACT #### [facility] [address] [place] [address] Dr. Epi Goldstein D-DIMERon 11-04-2022 D-DIMER 0.96 mg/L FEU Critically high <=0.59 [facility] Comment on above: Performed By: #### D DIM #### [facility] [address] [place] [address] Dr. Epi Goldstein D-DIMER COMMENTS SEE BELOW Normal [facility] Comment on above: Result Comment: Incr eases [...] hospitalization. Performed By: #### D DIM #### [facility] [address] [place] [address] Dr. Epi Goldstein LACTATE/LACTIC ACIDon 2022 Lactate [Moles/Vol] 0.8 mmol/L Normal 0.4-2.0 [facility] Comment on above: Performed By: #### L ACT #### [facility] [address] [place] [address] Dr. Epi Goldstein PROF CHEM 8 (BAS METB)on Anion gap [Moles/Vol] 9.2 mmol/L Normal [facility] Comment on above: Performed By: #### B YOSEPH, PATYDM #### [facility] [address] [address] [address] Epi Goldstein Calcium [Mass/Vol] 8.9 mg/dL Normal 8.5-10.1 [facility] Comment on above: Performed By: #### B YOSEPH, PATYDM #### [facility] [address] [address] [address] Epi Goldstein Chloride [Moles/Vol] 101 mmol/L Normal 98-107 [facility] Comment on above: Performed By: #### B YOSEPH, CMADM #### [facility] [address] [address] [address] Epi Goldstein CO2 [Moles/Vol] 29.1 mmol/L Normal 21.0-32.0 [facility] Comment on above: Performed By: #### B YOSEPH, PATYDM #### [facility] [address] [place] [address] Dr. Epi Goldstein Creatinine [Mass/Vol] 0.71 mg/dL Normal 0.70-1.30 [facility] Comment on above: Performed By: #### B YOSEPH, PATYDM #### [facility] [address] [address] [address] Epi Goldstein EGFR-AF FINNISH >60 Normal >=60 [facility] Comment on above: Performed By: #### B YOSEPH, PATYDM #### [facility] [address] [address] [address] Epi Goldstein EGFR-NON AF FINNISH >60 Normal >=60 [facility] Comment on above: Performed By: #### B YOSEPH, CMADM #### [facility] [address] [address] [address] Epi Goldstein Glucose [Mass/Vol] 105 mg/dL Normal 74-106 [facility] Comment on above: Performed By: #### B YOSEPH, CMADM #### [facility] [address] [address] [address] Epi Goldstein Potassium [Moles/Vol] 3.3 mmol/L Critically low 3.5-5.1 [facility] Comment on above: Performed By: #### B YOSEPH, CMADM #### [facility] [address] [place] [address] Dr. Epi Goldstein Sodium [Moles/Vol] 136 mmol/L Normal 136-145 [facility] Comment on above: Performed By: #### B YOSEPH, SARA #### [facility] [address] [place] [address] Dr. Epi Goldstein Urea nitrogen [Mass/Vol] 10.0 mg/dL Normal 7.0-18.0 [facility] Comment on above: Performed By: #### B YOSEPH, SARA #### [facility] [address] [place] [address] Dr. Epi Goldstein Urea nitrogen/Creatinine [Mass ratio] 14.1 mg/mg Normal [facility] Comment on above: Performed By: #### B SARA HAMEED #### [facility] [address] [place] [address] Dr. Epi Goldstein RESPIRATORY PANEL PLUSon Adenovirus Not detected Normal NOT DETECTED [facility] Comment on above: Performed By: #### R SPLUS #### [facility] [address] [place] [address] Dr. Epi Miller Parapertusis Not detected Normal NOT DETECTED [facility] Comment on above: Performed By: #### R SPLUS #### [facility] [address] [place] [address] Dr. Epi Miller Pertussis Not detected Normal NOT DETECTED [facility] Comment on above: Performed By: #### R SPLUS #### [facility] [address] [place] [address] Dr. Epi Goldstein Chlamydia Pneumoniae Not detected Normal NOT DETECTED [facility] Comment on above: Performed By: #### R SPLUS #### [facility] [address] [place] [address] Dr. Epi Goldstein Coronavirus 229E Not detected Normal NOT DETECTED [facility] Comment on above: Performed By: #### R SPLUS #### [facility] [address] [place] [address] Dr. Epi Goldstein Coronavirus HKU1 Not detected Normal NOT DETECTED [facility] Comment on above: Performed By: #### R SPLUS #### [facility] [address] [place] [address] Dr. Epi Goldstein Coronavirus NL63 Not detected Normal NOT DETECTED [facility] Comment on above: Performed By: #### R SPLUS #### [facility] [address] [place] [address] Dr. Epi Goldstein Coronavirus OC43 Not detected Normal NOT DETECTED [facility] Comment on above: Performed By: #### R SPLUS #### [facility] [address] [place] [address] Dr. Epi Goldstein Influenza A H1 Not detected Normal NOT DETECTED [facility] Comment on above: Performed By: #### R SPLUS #### [facility] [address] [place] [address] Dr. Epi Goldstein Influenza A H1 2009 Not detected Normal NOT DETECTED [facility] Comment on above: Performed By: #### R SPLUS #### [facility] [address] [place] [address] Dr. Epi Goldstein Influenza A H3 Not detected Normal NOT DETECTED [facility] Comment on above: Performed By: #### R SPLUS #### [facility] [address] [place] [address] Dr. Epi Goldstein Influenza B Not detected Normal NOT DETECTED [facility] Comment on above: Performed By: #### R SPLUS #### [facility] [address] [place] [address] Dr. Epi Goldstein Metapneumovirus Not detected Normal NOT DETECTED [facility] Comment on above: Performed By: #### R SPLUS #### [facility] [address] [place] [address] Dr. Epi Goldstein Mycoplas. Pneumoniae Not detected Normal NOT DETECTED [facility] Comment on above: Performed By: #### R SPLUS #### [facility] [address] [place] [address] Dr. Epi Goldstein Parainfluenza 1 Not detected Normal NOT DETECTED [facility] Comment on above: Performed By: #### R SPLUS #### [facility] [address] [place] [address] Dr. Epi Goldstein Parainfluenza 2 Not detected Normal NOT DETECTED [facility] Comment on above: Performed By: #### R SPLUS #### [facility] [address] [place] [address] Dr. Epi Goldstein Parainfluenza 3 Not detected Normal NOT DETECTED [facility] Comment on above: Performed By: #### R SPLUS #### [facility] [address] [place] [address] Dr. Epi Goldstein Parainfluenza 4 Not detected Normal NOT DETECTED [facility] Comment on above: Performed By: #### R SPLUS #### [facility] [address] [place] [address] Dr. Epi Goldstein Rhino/Enterovirus Not detected Normal NOT DETECTED [facility] Comment on above: Performed By: #### R SPLUS #### [facility] [address] [place] [address] Dr. Epi Goldstein RP2 Header 1 RESPIRATORY PANEL: VIRUSES Normal [facility] Comment on above: Performed By: #### R SPLUS #### [facility] [address] [place] [address] Dr. Epi Goldstein RP2 Header 2 RESPIRATORY PANEL: BACTERIA Normal [facility] Comment on above: Performed By: #### R SPLUS #### [facility] [address] [place] [address] Dr. Epi Goldstein RSV Not detected Normal NOT DETECTED [facility] Comment on above: Performed By: #### R SPLUS #### [facility] [address] [place] [address] Dr. Epi Goldstein SARS-CoV-2 (COVID-19) RNA ROWENA+probe Ql (Unsp spec) Not detected Normal NOT DETECTED [facility] Comment on above: Performed By: #### R SPLUS #### [facility] [address] [place] [address] Dr. Epi Goldstein Covid-19 PCR ([facility])on 08-10 SARS-CoV-2 (COVID-19) RNA ROWENA+probe Ql (Unsp spec) Not detected Normal NOT DETECTED [facility] Comment on above: Result Comment: When [...] for this test is supported by the [place] of Health and Human Service's declaration that [...] used). Performed By: #### L ACT #### [facility] [address] [place] [address] Dr. Epi Goldstein INFLUENZA A AND B [facility] 08-27 [facility] SEE BELOW Normal [facility] Comment on above: Result Comment: Nega tive for Flu A protein angiten. Infection due to Flu A cannot be ruled out. Flu A angiten in the sample may be below the detection limit of the test. Performed By: #### L ACT #### [facility] [address] [place] [address] Dr. [facility] Normal [facility] Comment on above: Result Comment: Nega tive for Flu B protein antigen. Infection due to Flu B cannot be ruled out. Flu B antigen in the sample may be below the detection limit of the test. Performed By: #### L ACT #### [facility] [address] [place] [address] Dr. Epi Goldstein INFLUENZA A AG Negative Normal NEGATIVE SEE COMMENT [facility] Comment on above: Performed By: #### L ACT #### [facility] [address] [place] [address] Dr. Epi Goldstein INFLUENZA B AG Negative Normal NEGATIVE SEE COMMENT [facility] Comment on above: Performed By: #### L ACT #### [facility] [address] [address] [address] Epi Goldstein XR CHEST 1 Von [...] LORI RODRIGUEZ Date: 2022-08-27 20:19 Normal [facility] COVID/FLU/RSV RT-PCRon 07-07 SARS-CoV-2 (COVID-19) RNA ROWENA+probe Ql (Unsp spec) Positive [facility] [place] Other COVID/FLU/RSV RT-PCR Negative [facility] [place] Other CBC AUTO DIFFon 03-12-2022 BASO # 0.1 103/ul Normal 0.0-0.1 [facility] Comment on above: Performed By: #### C BC #### [facility] [address] [place] [address] Dr. Epi Goldstein Basophils/100 WBC (Bld) 0.9 % Normal 0.2-2.0 [facility] Comment on above: Performed By: #### C BC #### [facility] [address] [place] [address] Dr. Epi Goldstein EO # 0.4 103/ul Normal 0.0-0.7 [facility] Comment on above: Performed By: #### C BC #### [facility] [address] [place] [address] Dr. Epi Goldstein Eosinophils/100 WBC (Bld) 4.4 % Normal 0.9-7.0 [facility] Comment on above: Performed By: #### C BC #### [facility] [address] [place] [address] Dr. Epi Goldstein Erythrocyte distribution width (RBC) [Ratio] 12.4 % Normal 11.0-15.0 [facility] Comment on above: Performed By: #### C BC #### [facility] [address] [place] [address] Dr. Epi Goldstein Hematocrit (Bld) [Volume fraction] 35.1 % Critically low 42.0-54.0 [facility] Comment on above: Performed By: #### C BC #### [facility] [address] [place] [address] Dr. Epi Goldstein Hemoglobin (Bld) [Mass/Vol] 11.8 g/dL Critically low 14.0-18.0 [facility] Comment on above: Performed By: #### C BC #### [facility] [address] [place] [address] Dr. Epi Goldstein IG # 0.02 10e3/ul Normal 0.00-0.03 [facility] Comment on above: Performed By: #### C BC #### [facility] [address] [place] [address] Dr. Epi Goldstein IG % 0.2 % Normal 0.0-0.5 [facility] Comment on above: Performed By: #### C BC #### [facility] [address] [place] [address] Dr. Epi Goldstein LYMPH # 2.9 103/ul Normal 1.2-3.8 [facility] Comment on above: Performed By: #### C BC #### [facility] [address] [place] [address] Dr. Epi Goldstein Lymphocytes/100 WBC (Bld) 29.8 % Normal 20.5-60.0 [facility] Comment on above: Performed By: #### C BC #### [facility] [address] [place] [address] Dr. Epi Goldstein MANUAL DIFF REQ NO Normal [facility] Comment on above: Performed By: #### C BC #### [facility] [address] [place] [address] Dr. Epi Goldstein MCH (RBC) [Entitic mass] 30.7 pg Normal 25.9-34.0 [facility] Comment on above: Performed By: #### C BC #### [facility] [address] [place] [address] Dr. Epi Goldstein MCHC (RBC) [Mass/Vol] 33.6 g/dL Normal 29.9-35.2 [facility] Comment on above: Performed By: #### C BC #### [facility] [address] [place] [address] Dr. Epi Goldstein MCV (RBC) [Entitic vol] 91.4 fL Normal 80.0-94.0 [facility] Comment on above: Performed By: #### C BC #### [facility] [address] [place] [address] Dr. Epi Goldstein MONO # 0.8 103/ul Normal 0.3-0.8 [facility] Comment on above: Performed By: #### C BC #### [facility] [address] [place] [address] Dr. Epi Goldstein Monocytes/100 WBC (Bld) 8.1 % Normal 1.7-12.0 [facility] Comment on above: Performed By: #### C BC #### [facility] [address] [place] [address] Dr. Epi Goldstein NEUT # 5.5 103/ul Normal 1.4-6.5 [facility] Comment on above: Performed By: #### C BC #### [facility] [address] [place] [address] Dr. Epi Goldstein Neutrophils/100 WBC (Bld) 56.6 % Normal 43.0-75.0 [facility] Comment on above: Performed By: #### C BC #### [facility] [address] [place] [address] Dr. Epi Goldstein Platelet mean volume (Bld) [Entitic vol] 10.2 fL Normal 9.5-13.5 [facility] Comment on above: Performed By: #### C BC #### [facility] [address] [place] [address] Dr. Epi Goldsteni PLT 237 103/ul Normal 150-450 [facility] Comment on above: Performed By: #### C BC #### [facility] [address] [address] [address] Epi Goldstein RBC 3.84 106/ul Critically low 4.70-6.10 [facility] Comment on above: Performed By: #### C BC #### [facility] [address] [place] [address] Dr. Epi Goldstein WBC 9.7 103/ul Normal 4.0-11.0 [facility] Comment on above: Performed By: #### C BC #### [facility] [address] [place] [address] Dr. Epi Goldstein PROF CHEM 8 (BAS METB)on Anion gap [Moles/Vol] 13.2 mmol/L Normal [facility] Comment on above: Performed By: #### B MP #### [facility] [address] [place] [address] Dr. Epi Goldstein Calcium [Mass/Vol] 8.3 mg/dL Critically low 8.5-10.1 [facility] Comment on above: Performed By: #### B MP #### [facility] [address] [place] [address] Dr. Epi Goldstein Chloride [Moles/Vol] 105 mmol/L Normal 98-107 [facility] Comment on above: Performed By: #### B MP #### [facility] [address] [place] [address] Dr. Epi Goldstein CO2 [Moles/Vol] 26.7 mmol/L Normal 21.0-32.0 [facility] Comment on above: Performed By: #### B MP #### [facility] [address] [place] [address] Dr. Epi Goldstein Creatinine [Mass/Vol] 0.76 mg/dL Normal 0.70-1.30 [facility] Comment on above: Performed By: #### B MP #### [facility] [address] [place] [address] Dr. Epi Goldstein EGFR-AF FINNISH >60 Normal >=60 [facility] Comment on above: Performed By: #### B MP #### [facility] [address] [address] [address] Epi Goldstein EGFR-NON AF FINNISH >60 Normal >=60 [facility] Comment on above: Performed By: #### B MP #### [facility] [address] [address] [address] Epi Goldstein Glucose [Mass/Vol] 127 mg/dL Critically high 74-106 [facility] Comment on above: Performed By: #### B MP #### [facility] [address] [address] [address] Epi Goldstein Potassium [Moles/Vol] 3.9 mmol/L Normal 3.5-5.1 [facility] Comment on above: Performed By: #### B MP #### [facility] [address] [address] [address] Epi Goldstein Sodium [Moles/Vol] 141 mmol/L Normal 136-145 [facility] Comment on above: Performed By: #### B MP #### [facility] [address] [address] [address] Epi Goldstein Urea nitrogen [Mass/Vol] 14.0 mg/dL Normal 7.0-18.0 [facility] Comment on above: Performed By: #### B MP #### [facility] [address] [address] [address] Epi Goldstein Urea nitrogen/Creatinine [Mass ratio] 18.4 mg/mg Normal [facility] Comment on above: Performed By: #### B MP #### [facility] [address] [place] [address] Dr. Epi Goldstein US JAMES DOP LEG [...] DOWNEY Date: 2022-03-12 13:59 Normal [facility] XR TIB_FIB LT 2Von 2 [...] by: MERI SIMPSON Date: 2022-03-12 14:19 Normal [facility] CNOVon 12-14-2018 CNOV Office Visit (PAINLN ) ----- LORI ANTON ([id number]) 1965 M Date Time Provider Department 12/14/18 10:15 AM STEVE WILSON During your visit today, we recorded the following information about you: Pulse Weight 63/minute 104.8 kg Steve Wilson DO 12/14/2018 10:53 AM Signed [facility] Initial Evaluation December 14, 2018 - 9:54 AM This appointment was requested by Bryce CUADRA, for my medical opinion regarding? the evaluation and management of the patient's LORI Anton problems, and my final recommendations will be communicated to the requesting health care provider by way of the shared medical record for internal providers or letter via the [employer] for external providers. SUBJECTIVE: LORI Anton a 53 year old presents to [facility] Pain Management Department, accompanied by self [...] No history of dysuria, frequency or incontinence MOCK UP MAKER: NA MUSCULOSKELETAL: LBP SKIN:Negative for lesions, rash, [...] supervised home exercise program (HEP): No 5. Yardage Control Operator Forming: No Passive conservative therapy lasting 6 weeks [...] 14, 2018 Referring Provider: BRYCE LOVE (KHALIF) [[id number]] Allergies As of Date: 12/14/2018 Noted Allergy [...] knee [M25.561, G89.29] Order(s):CONSULT TO PHYSICAL THERAPY [2690] Order #: [id number]: 1 tiZANidine (ZANAFLEX) 4 mg tabletTake 1 [...] Status:Closed by STEVE WILSON DO on 12/14/18 [facility] CN Office Visit (LOORRM ) ----- LORI ANTON ([id number]) 1965 M Date Time Provider Department 12/14/18 [...] CONSULT TO PHYSICAL THERAPY [9032] Order #: [id number]: 1 CONSULT TO PAIN MGT ANESTHESIA [998860] Order #: [id number]: 1 Prescriptions as of 12/14/2018 Sig: CARVEDILOL [...] Status:Closed by BRYCE LOVE on 12/14/18 Normal [facility] PROGRESSon 12-14-2018 Protein mass conc HNO ID: [id number] Author: Steve Wilson Service: ? Author Type: Physician Type: Progress Notes Filed: 12/14/2018 10:53 AM Note Text: [facility] Initial Evaluation December 14, 2018 - 9:54 AM This appointment was requested by Bryce CUADRA, for my medical opinion regarding? the evaluation and management of the patient's LORI Anton problems, and my final recommendations will be communicated to the requesting health care provider by way of the shared medical record for internal providers or letter via the [employer] for external providers. SUBJECTIVE: LORI Anton a 53 year old presents to [facility] Pain Management Department, accompanied by self [...] No history of dysuria, frequency or incontinence MOCK UP MAKER: NA MUSCULOSKELETAL: LBP SKIN:Negative for lesions, rash, [...] supervised home exercise program (HEP): No 5. Yardage Control Operator Forming: No Passive conservative therapy lasting 6 weeks [...] edited as needed and is complete. Steve E Steve, December 14, 2018 Physical Examination: Pulse 63 [...] Steve Wilson, DO December 14, 2018 [facility] Protein mass conc HNO ID: [id number] Author: Bryce Love (Pa) Service: ? Author Type: Physician Family And Marriage Counsellor Type: Progress Notes Filed: 12/14/2018 9:30 AM [...] his back. PROCEDURE: None. Bryce Love PA-C [facility] CNOVon 10-11-2018 CNOV Office Visit (LOORRM ) ----- LORI ANTON ([id number]) 1965 M Date Time Provider Department 10/11/18 [...] in your family? 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 Service: ? Author [...] injections well. Theodore Gonzalez Jr, MD [facility] Protein mass conc HNO ID: [id number] Author: Vinh Nguyen (Rt) Service: ? Author Type: Gamma Facilities Operator Type: Progress Notes Filed: 10/11/2018 10:07 [...] PERIPHERAL IV DATA: Not applicable SIGNED BY: Pallavi Glass, RT October 11, 2018 10:07 AM Normal [facility] XR KNEE 4V AP/PA/LAT/MERCH B ILon [...] age. 2.1 cm left posterolateral joint body. Regulatory Internship: [facility] Transcribe Date/Time: Oct 11 2018 10:14A Dictated by : ACE BUSTAMANTE MD This examination was interpreted and the report reviewed and electronically signed by: ACE BUSTAMANTE MD on Oct 11 2018 10:18AM EST [id number] Normal [facility] Vital Signs Date Time Vital Sign Value Performing Clinician Facility 07-18-2024 09:09-0500 Body height 190.5 cm Shaista Gonzaleslorna HEAT TREAT TECHNICIAN Work Phone: [facility] 07-18-2024 09:09-0500 Body mass index (BMI) [Ratio] 26.85 kg/m2 Shaistadeo Gonzalesz HEAT TREAT TECHNICIAN Work Phone: [facility] 07-18-2024 09:09-0500 Body temperature 99 [degF] Shaista Robinisiahz HEAT TREAT TECHNICIAN Work Phone: [facility] 07-18-2024 09:09-0500 Body weight 97.43 kg Shaistadeo Robinisiahz HEAT TREAT TECHNICIAN Work Phone: [facility] 07-18-2024 09:09-0500 Diastolic blood pressure 82 mm[Hg] Shaista Lobitoisiahz HEAT TREAT TECHNICIAN Work Phone: [facility] 07-18-2024 09:09-0500 Heart rate 71 /min Shaistadeo Gonzalesz HEAT TREAT TECHNICIAN Work Phone: [facility] 07-18-2024 09:09-0500 Respiratory rate 19 /min Shaista Lobitoholz HEAT TREAT TECHNICIAN Work Phone: [facility] 07-18-2024 09:09-0500 SaO2% (BldA) [Mass fraction] 96 % Shaistadeo Robinisiahz HEAT TREAT TECHNICIAN Work Phone: [facility] 07-18-2024 09:09-0500 Systolic blood pressure 126 mm[Hg] Shaista Robinisiahz HEAT TREAT TECHNICIAN Work Phone: [facility] 05-23-2024 08:59-0500 Body height 190.5 cm Shaistadeo Robinholz HEAT TREAT TECHNICIAN Work Phone: [facility] 05-23-2024 08:59-0500 Body mass index (BMI) [Ratio] 26.72 kg/m2 Shaista Jeannetteelverholz HEAT TREAT TECHNICIAN Work Phone: [facility] 05-23-2024 08:59-0500 Body temperature 98.4 [degF] Shaista Jeannettehholz HEAT TREAT TECHNICIAN Work Phone: [facility] 05-23-2024 08:59-0500 Body weight 96.98 kg Shaista Aichholz HEAT TREAT TECHNICIAN Work Phone: [facility] 05-23-2024 08:59-0500 Diastolic blood pressure 80 mm[Hg] Shaista Aichholz HEAT TREAT TECHNICIAN Work Phone: [facility] 05-23-2024 08:59-0500 Heart rate 66 /min Shaista Aichholz HEAT TREAT TECHNICIAN Work Phone: [facility] 05-23-2024 08:59-0500 Respiratory rate 18 /min Shaista Aichholz HEAT TREAT TECHNICIAN Work Phone: [facility] 05-23-2024 08:59-0500 SaO2% (BldA) [Mass fraction] 97 % Shaista Aichholz HEAT TREAT TECHNICIAN Work Phone: [facility] 05-23-2024 08:59-0500 Systolic blood pressure 118 mm[Hg] Shaista Aichholz HEAT TREAT TECHNICIAN Work Phone: [facility] 05-02-2024 16:10-0400 Body height 190.5 cm Shaista Aichholz HEAT TREAT TECHNICIAN Work Phone: [facility] 05-02-2024 16:10-0400 Body mass index (BMI) [Ratio] 27.05 kg/m2 Shaista Aichholz HEAT TREAT TECHNICIAN Work Phone: [facility] 05-02-2024 16:10-0400 Body temperature 98.8 [degF] Shaista Aichholz HEAT TREAT TECHNICIAN Work Phone: [facility] 05-02-2024 16:10-0400 Body weight 98.16 kg Shaista Aichholz HEAT TREAT TECHNICIAN Work Phone: [facility] 05-02-2024 16:10-0400 Diastolic blood pressure 86 mm[Hg] Shaista Aichholz HEAT TREAT TECHNICIAN Work Phone: [facility] 05-02-2024 16:10-0400 Heart rate 76 /min Shaista Jeannettehholz HEAT TREAT TECHNICIAN Work Phone: [facility] 05-02-2024 16:10-0400 Respiratory rate 18 /min Shaista Lobitoholz HEAT TREAT TECHNICIAN Work Phone: [facility] 05-02-2024 16:10-0400 SaO2% (BldA) [Mass fraction] 98 % Shaista Lobitoholz HEAT TREAT TECHNICIAN Work Phone: [facility] 05-02-2024 16:10-0400 Systolic blood pressure 138 mm[Hg] Shaista Lobitoholz HEAT TREAT TECHNICIAN Work Phone: [facility] 02-29-2024 08:51-0400 Body height 190.5 cm Shaista Lobitoholz HEAT TREAT TECHNICIAN Work Phone: [facility] 02-29-2024 08:51-0400 Body mass index (BMI) [Ratio] 25.92 kg/m2 Shaista Lobitoholz HEAT TREAT TECHNICIAN Work Phone: [facility] 02-29-2024 08:51-0400 Body temperature 98.49 [degF] Shaista Jeannettehholz HEAT TREAT TECHNICIAN Work Phone: [facility] 02-29-2024 08:51-0400 Body weight 94.08 kg Shaista Lobitoholz HEAT TREAT TECHNICIAN Work Phone: [facility] 02-29-2024 08:51-0400 Diastolic blood pressure 82 mm[Hg] Shaista Lobitoholz HEAT TREAT TECHNICIAN Work Phone: [facility] 02-29-2024 08:51-0400 Heart rate 78 /min Shaista Lobitoholz HEAT TREAT TECHNICIAN Work Phone: [facility] 02-29-2024 08:51-0400 Respiratory rate 20 /min Shaista Aichholz HEAT TREAT TECHNICIAN Work Phone: [facility] 02-29-2024 08:51-0400 SaO2% (BldA) [Mass fraction] 98 % Shaista Jeannettehholz HEAT TREAT TECHNICIAN Work Phone: [facility] 08-22-2024 08:51-0400 Systolic blood pressure 138 mm[Hg] Shaista Aichholz HEAT TREAT TECHNICIAN Work Phone: [facility] 07-31-2023 19:51-0500 Body height 190.5 cm Shaista Aichholz Work Phone: [facility] 07-31-2023 19:51-0500 Body temperature 100.1 [degF] Shaista Aichholz Work Phone: [facility] 07-31-2023 19:51-0500 Body weight 92.98 kg Shaista Aichholz Work Phone: [facility] 07-31-2023 19:51-0500 Diastolic blood pressure 78 mm[Hg] Shaista Aichholz Work Phone: [facility] 07-31-2023 19:51-0500 Heart rate 96 /min Shaista Aichholz Work Phone: [facility] 07-31-2023 19:51-0500 Respiratory rate 16 /min Shaista Aichholz Work Phone: [facility] 07-31-2023 19:51-0500 SaO2% (BldA) [Mass fraction] 98 % Shaista Aichholz Work Phone: [facility] 07-31-2023 19:51-0500 Systolic blood pressure 133 mm[Hg] Shaista Aichholz Work Phone: [facility] 12-28-2022 08:30-0400 Body height 190.5 cm Bakaridevon Huitron Other [employer] Other 12-28-2022 08:30-0400 Body mass index (BMI) [Ratio] 25.77 kg/m2 Ismael Huitron Other [employer] Other 12-28-2022 08:30-0400 Body temperature 98.1 [degF] Ismael Huitron Other [employer] Other 12-28-2022 08:30-0400 Body weight 93.53 kg Ismael Juárezban Other [employer] Other 12-28-2022 08:30-0400 Diastolic blood pressure 92 mm[Hg] Ismael Juárezban Other [employer] Other 12-28-2022 08:30-0400 Respiratory rate 20 /min Ismael Juárezban Other [employer] Other 12-28-2022 08:30-0400 SaO2% (BldA) [Mass fraction] 98 % Ismael Huitron Other [employer] Other 12-28-2022 08:30-0400 Systolic blood pressure 152 mm[Hg] Ismael Huitron Other [employer] Other 12-08-2022 21:30-0400 Diastolic blood pressure 87 mm[Hg] Shaista Aichholz Work Phone: [facility] 12-08-2022 21:30-0400 Heart rate 65 /min Shaista Aichholz Work Phone: [facility] 12-08-2022 21:30-0400 Respiratory rate 18 /min Shasita Aichholz Work Phone: [facility] 12-08-2022 21:30-0400 SaO2% (BldA) [Mass fraction] 96 % Shaista Aichholz Work Phone: [facility] 12-08-2022 21:30-0400 Systolic blood pressure 134 mm[Hg] Shaista Aichholz Work Phone: [facility] 12-08-2022 19:30-0400 Body temperature 98.1 [degF] Shaista Aichholz Work Phone: [facility] 12-08-2022 17:36-0400 Body height 190.5 cm Shaista Aichholz Work Phone: [facility] 12-08-2022 17:36-0400 Body weight 91.1 kg Shaista Aichholz Work Phone: [facility] 11-21-2022 12:00-0400 Body temperature 98.1 [degF] Shaista Aichholz Work Phone: [facility] 11-21-2022 12:00-0400 Diastolic blood pressure 73 mm[Hg] Shaista Aichholz Work Phone: [facility] 11-21-2022 12:00-0400 Heart rate 74 /min Shaista Aichholz Work Phone: [facility] 11-21-2022 12:00-0400 Inhaled oxygen flow rate 4 L/min Shaista Aichholz Work Phone: [facility] 11-21-2022 12:00-0400 Respiratory rate 18 /min Shaista Aichholz Work Phone: [facility] 11-21-2022 12:00-0400 SaO2% (BldA) [Mass fraction] 95 % Shaista Aichholz Work Phone: [facility] 11-21-2022 12:00-0400 Systolic blood pressure 135 mm[Hg] Shaista Aichholz Work Phone: [facility] 11-21-2022 03:52-0400 Body weight 97.1 kg Shaista Aichholz Work Phone: [facility] 11-18-2022 09:00-0400 Inhaled oxygen concentration 40 % Shaista Aichholz Work Phone: [facility] 11-17-2022 13:54-0400 Body height 190.5 cm Shaista Corona Work Phone: [facility] 07-07-2022 17:45-0500 Body height 190.5 cm Supriya Brown Other [employer] Other 07-07-2022 17:45-0500 Body mass index (BMI) [Ratio] 28.12 kg/m2 Supriya Brown Other [employer] Other 07-07-2022 17:45-0500 Body temperature 100.5 [degF] Supriya Zapataault Other [employer] Other 07-07-2022 17:45-0500 Body weight 102.06 kg Supriya Zaaptaault Other [employer] Other 07-07-2022 17:45-0500 Diastolic blood pressure 84 mm[Hg] Supriya Zapataault Other [employer] Other 07-07-2022 17:45-0500 Respiratory rate 18 /min Supriya Brown Other [employer] Other 07-07-2022 17:45-0500 SaO2% (BldA) [Mass fraction] 97 % Supriya Brown Other [employer] Other 07-07-2022 17:45-0500 Systolic blood pressure 123 mm[Hg] Supriya Zapataault Other [employer] Other Encounters Encounter Date Encounter Type Care Provider Facility Start: 08-21-2024 End: 08-21-2024 Refill Shaista Corona HEAT TREAT TECHNICIAN Work Phone: [facility] Comment on above: Benign prostatic hyp erplasia with weak urinary stream Acute cough (Primary Dx) Start: 08-17-2024 End: 08-18-2024 Refill Shaista Corona HEAT TREAT TECHNICIAN Work Phone: [facility] Comment on above: Anxiety; Anxiety disorder, unspecified; Muscle spasms of both lower extremities Start: 07-25-2024 End: 07-25-2024 ambulatory [facility] Facility:[facility] Start: 07-24-2024 End: 07-24-2024 Refill Shaista Corona HEAT TREAT TECHNICIAN Work Phone: [facility] Comment on above: Benign prostatic hyp erplasia with weak urinary stream (Primary Dx) Start: 07-18-2024 End: 07-18-2024 Bamboo flowsheet Shaista Corona HEAT TREAT TECHNICIAN Work Phone: [facility] Start: 07-18-2024 End: 07-18-2024 Bamboo flowsheet Shaista Corona HEAT TREAT TECHNICIAN Work Phone: [facility] Start: 07-18-2024 End: 07-18-2024 ambulatory SHAISTA CORONA Not Available Start: 07-18-2024 End: 07-18-2024 Office outpatient visit 25 minutes Shaista Corona HEAT TREAT TECHNICIAN Work Phone: [facility] Comment on above: Anxiety (Primary Dx) ; Opioid abuse, uncomplicated (CMS/HCC); Spinal stenosis of lumbosacral region; Primary hypertension (CMS/HCC); Bilateral chronic knee pain; Bilateral leg edema; BMI 25.0-25.9,adult; On potassium wasting diuretic therapy; Tobacco user; Essential (primary) hypertension (CMS/HCC); Benign prostatic hyperplasia with weak urinary stream Start: 07-10-2024 End: 07-10-2024 Refill Shaista Corona HEAT TREAT TECHNICIAN Work Phone: [facility] Comment on above: Bilateral leg edema; On potassium wasting diuretic therapy Start: 05-23-2024 End: 05-23-2024 Clinisync Result Encounter Shaista Corona HEAT TREAT TECHNICIAN Work Phone: [facility] Unsolicited Start: 05-23-2024 End: 05-23-2024 Clinisync Result Encounter Shaista Cj HEAT TREAT TECHNICIAN Work Phone: [facility] Unsolicited Start: 05-23-2024 End: 05-23-2024 Office outpatient visit 25 minutes Shaista Corona HEAT TREAT TECHNICIAN Work Phone: [facility] Comment on above: Bilateral leg edema (Primary Dx); Primary hypertension (CMS/HCC); Tobacco user; On potassium wasting diuretic therapy; Needs flu shot; Osteoarthritis of left knee, unspecified osteoarthritis type Start: 05-23-2024 End: 05-23-2024 ambulatory SHAISTA LOBITOHOLZ Not Available Start: 05-21-2024 End: 05-22-2024 Refill Shaista Corona HEAT TREAT TECHNICIAN Work Phone: [facility] Comment on above: Bilateral leg edema Start: 05-02-2024 End: 05-02-2024 Office outpatient visit 25 minutes Shaista Cj HEAT TREAT TECHNICIAN Work Phone: [facility] Comment on above: Bilateral leg edema (Primary Dx); Primary hypertension (CMS/HCC); Benign prostatic hyperplasia with weak urinary stream; Tobacco user Start: 05-02-2024 End: 05-02-2024 ambulatory SHAISTA LOBITOHOLZ Not Available Start: 05-02-2024 End: 05-02-2024 Bamboo flowsheet Shaista Corona HEAT TREAT TECHNICIAN Work Phone: [facility] Start: 05-02-2024 End: 05-02-2024 Clinisync Result Encounter Shaista Cj HEAT TREAT TECHNICIAN Work Phone: [facility] Unsolicited Start: 05-02-2024 End: 05-02-2024 Clinisync Result Encounter Shaista Cj HEAT TREAT TECHNICIAN Work Phone: [facility] Unsolicited Start: 04-24-2024 End: 04-24-2024 ambulatory [facility] Facility:[facility] Start: 02-29-2024 End: 02-29-2024 Bamboo flowsheet Shaista Corona HEAT TREAT TECHNICIAN Work Phone: [facility] Start: 02-29-2024 End: 02-29-2024 Bamboo flowsheet Shaista Corona HEAT TREAT TECHNICIAN Work Phone: [facility] Start: 02-29-2024 End: 02-29-2024 Patient encounter status Shaista Corona HEAT TREAT TECHNICIAN Work Phone: [facility] Start: 02-29-2024 End: 02-29-2024 Periodic preventive med est patient 40-64yrs Shaista Corona HEAT TREAT TECHNICIAN Work Phone: [facility] Comment on above: Wellness examination (Primary Dx); Opioid abuse, uncomplicated (CMS/HCC); Chronic left hip pain; Family history of premature CAD; Tobacco user; BMI 25.0-25.9,adult; Primary hypertension (CMS/HCC); Anxiety; Essential (primary) hypertension (CMS/HCC); Bilateral chronic knee pain; Anxiety disorder, unspecified; Muscle spasms of both lower extremities; Benign prostatic hyperplasia with weak urinary stream Start: 02-29-2024 End: 02-29-2024 ambulatory SHAISTA AICHHOLZ Not Available Start: 11-30-2023 End: 11-30-2023 ambulatory Sagar Orta Facility:[facility] Start: 11-29-2023 End: 11-29-2023 ambulatory SHAISTA AICHHOLZ Not Available Start: 10-31-2023 End: 10-31-2023 ambulatory SHAISTA AICHHOLZ Not Available Start: 08-30-2023 End: 08-30-2023 ambulatory SHAISTA AICHHOLZ Not Available Start: 07-31-2023 End: 08-01-2023 Emergency department patient visit Ej Garcia Facility:[facility] Start: 07-31-2023 End: 07-31-2023 Emergency department patient visit Shaista Robintheron Work Phone: [facility] Work Phone: Start: 12-28-2022 End: 12-28-2022 ambulatory Ismael Huitron Other [employer] Other Start: 12-28-2022 Office outpatient vi sit 25 minutes Ismael Huitron [facility] Start: 12-26-2022 End: 12-26-2022 ambulatory Shaista Corona Facility:[facility] Start: 12-26-2022 End: 12-26-2022 ambulatory Shaista Corona Work Phone: [facility] Work Phone: Start: 12-26-2022 End: 12-26-2022 Patient encounter procedure Shaista Corona Work Phone: [facility] [place] Work Phone: Start: 12-08-2022 End: 12-08-2022 Emergency department patient visit Lisha Silva Facility:[facility] Start: 12-08-2022 End: 12-08-2022 Emergency department patient visit Shiasta Corona Work Phone: [facility] Work Phone: Start: 11-05-2022 End: 11-21-2022 Evaluation and management of inpatient Sanjay Holt Facility:[facility] Start: 11-05-2022 End: 11-21-2022 Evaluation and management of inpatient Shaista Corona Work Phone: [facility] Work Phone: Start: 11-04-2022 End: 11-05-2022 ambulatory [facility] SHAISTA JEANNETTEElverISIAHZ Facility:[facility] Start: 11-03-2022 End: 11-03-2022 ambulatory [facility] SHAISTA AICElverHOLZ Facility:[facility] Start: 08-27-2022 End: 08-27-2022 ambulatory CATRACHITO ALONZO . Facility:[facility] Start: 07-07-2022 End: 07-07-2022 ambulatory Supriya Brown Other [employer] Other Start: 07-07-2022 Office outpatient ne w 20 minutes Supriya Brown [facility] Start: 03-12-2022 End: 03-12-2022 ambulatory [facility] SHAISTA ROBINISIAHLorna Facility:[facility] Procedures Date Procedure Procedure Detail Performing Clinician Start: 05-23-2024 ALL BASIC METABOLIC PANEL Shaista Robintehron HEAT TREAT TECHNICIAN Work Phone: Start: 05-02-2024 ALL CBC WITH AUTO DIFF Shaista Robintheron HEAT TREAT TECHNICIAN Work Phone: Start: 07-31-2023 SARS-CoV-2, Influenz a & RSV (PCR) Shaista Robinisiahlorna Work Phone: Start: 12-26-2022 Plain chest X-ray Shaista Corona Work Phone: Start: 12-08-2022 CT angiography of thorax Shaista Robinisiahlorna Work Phone: Start: 11-20-2022 Plain chest X-ray Shaista Corona Work Phone: Start: 11-18-2022 Plain chest X-ray Shaista Corona Work Phone: Start: 11-17-2022 Aerobic microbial culture Shaista Corona Work Phone: Start: 11-17-2022 Blood culture for ba cteria, including anaerobic screen Shaista Robinisiahlorna Work Phone: Start: 11-17-2022 Investigation of transfusion reaction Shaista Corona Work Phone: Start: 11-17-2022 Plain chest X-ray Shaista Corona Work Phone: Start: 11-16-2022 Urine culture Shaista joycez Work Phone: Start: 11-16-2022 CT angiography of thorax Shaistadeo Robintheron Work Phone: Start: 11-16-2022 Plain chest X-ray Shaista Aichholz Work Phone: Start: 11-15-2022 Plain chest X-ray Shaista Aicelverholz Work Phone: Start: 11-14-2022 DH Bronchoscopy Flex ible (Not Applicable) Shaista Aichholz Work Phone: Start: 11-14-2022 End: 11-14-2022 Plain chest X-ray Shaista Aichholz Work Phone: Start: 11-13-2022 Plain chest X-ray Shaista Aichholz Work Phone: Start: 11-12-2022 Duplex scan of lower limb veins Shaista Lobitoholz Work Phone: Start: 11-12-2022 End: 11-12-2022 Plain chest X-ray Shaista Aichholz Work Phone: Start: 11-11-2022 Plain chest X-ray Shaista Lobitoholz Work Phone: Start: 11-10-2022 End: 11-10-2022 Plain chest X-ray Shaista Aicelverholz Work Phone: Start: 11-09-2022 End: 11-09-2022 Plain chest X-ray Shaista Aicelverholz Work Phone: Start: 11-08-2022 End: 11-08-2022 Plain chest X-ray Shaista Aichholz Work Phone: Start: 11-07-2022 Plain chest X-ray Shaista Aichholz Work Phone: Start: 11-07-2022 End: 11-07-2022 Plain chest X-ray Shaista Aichholz Work Phone: Start: 11-06-2022 CT of thorax with contrast Shaista Aichholz Work Phone: Start: 11-05-2022 Plain chest X-ray Shaista Aichholz Work Phone: Plan of Treatment Date Care Activity Detail Author Start: 08-30-2024 Screening for malignant neoplasm of colon Colorectal Cancer Screening [facility] Comment on above: Postponed from 1965 (Patient Refus ed) Start: 08-27-2024 End: 08-27-2024 Patient encounter procedure 08/27/2024 8:40 AM EST [facility] [address] [place] [address] Shaista Corona, LIDA [address] [place] [id number] [facility] Start: 08-21-2024 End: 08-21-2025 XR Chest 2 Views XR chest 2 views Imaging Routine Acute cough Expected: 08/21/2024 (Approximate), Expires: 08/21/2025 [facility] Work Phone: Comment on above: Expected: 08/21/2024 (Approximate), Expi res: 08/21/2025 Start: 07-18-2024 Influenza vaccination Influenza Vaccine (#1) [facility] Comment on above: Postponed from 03/10/2024 (Patient Refus ed) Start: 07-18-2024 End: 07-18-2024 Patient encounter procedure 07/18/2024 9:00 AM EST Office Visit [facility] [address] [place] [address] Shaista Corona, HEAT TREAT TECHNICIAN [address] [place] [id number] [facility] Start: 07-08-2024 End: 07-08-2024 Patient encounter procedure 07/08/2024 8:40 AM EST Office Visit [facility] [address] [place] [address] Shaista Corona, HEAT TREAT TECHNICIAN [address] [place] [phone] [facility] Start: 06-06-2024 End: 05-23-2025 Basic metabolic 1998 panel - Serum or Plasma Basic metabolic panel Lab Routine Bilateral leg edema On potassium wasting diuretic therapy Expected: 06/06/2024 (Approximate), Expires: 05/23/2025 [facility] Work Phone: Comment on above: Expected: 06/06/2024 (Approximate), Expi res: 05/23/2025 Start: 05-23-2024 End: 05-23-2024 Patient encounter procedure 05/23/2024 9:00 AM EST Office Visit [facility] [address] [place] [address] Shaista Corona, LIDA [address] [place] [phone] [facility] Start: 05-02-2024 End: 05-02-2024 Patient encounter procedure 05/02/2024 4:00 PM EDT Office Visit [facility] [address] [place] [address] Shaista Corona, HEAT TREAT TECHNICIAN [address] [place] [phone] Arrived [facility] Comment on above: Arrived Start: 05-02-2024 End: 05-02-2025 Bacteria identified in Urine by Culture Urine culture (clean catch) Microbiology Routine Bilateral leg edema Expected: 05/02/2024 (Approximate), Expires: 05/02/2025 [facility] Comment on above: Expected: 05/02/2024 (Approximate), Expi res: 05/02/2025 Start: 05-02-2024 End: 05-02-2025 CBC W Auto Differential panel - Blood CBC and differential Lab Routine Bilateral leg edema Expected: 05/02/2024 (Approximate), Expires: 05/02/2025 [facility] Comment on above: Expected: 05/02/2024 (Approximate), Expi res: 05/02/2025 Start: 05-02-2024 End: 05-02-2025 Comprehensive metabolic 2000 panel - Serum or Plasma Comprehensive metabolic panel Lab Routine Bilateral leg edema Expected: 05/02/2024 (Approximate), Expires: 05/02/2025 [facility] Comment on above: Expected: 05/02/2024 (Approximate), Expi res: 05/02/2025 Start: 05-02-2024 End: 05-02-2025 Erythrocyte sedimentation rate Sedimentation rate, automated Lab Routine Bilateral leg edema Expected: 05/02/2024 (Approximate), Expires: 05/02/2025 [facility] Work Phone: Comment on above: Expected: 05/02/2024 (Approximate), Expi res: 05/02/2025 Start: 05-02-2024 End: 05-02-2025 Urate [Mass/volume] in Serum or Plasma Uric acid Lab Routine Bilateral leg edema Expected: 05/02/2024 (Approximate), Expires: 05/02/2025 [facility] Comment on above: Expected: 05/02/2024 (Approximate), Expi res: 05/02/2025 Start: 05-02-2024 End: 05-02-2025 Urinalysis complete panel - Urine Urinalysis with reflex microscopic (clean catch) Lab Routine Bilateral leg edema Expected: 05/02/2024 (Approximate), Expires: 05/02/2025 [facility] Comment on above: Expected: 05/02/2024 (Approximate), Expi res: 05/02/2025 Start: 03-10-2024 Influenza vaccination Influenza Vaccine (#1) [facility] Start: 02-29-2024 End: 02-28-2025 XR Hip - left 3 Views XR hip left 2 or 3 views Imaging Routine Chronic left hip pain Expected: 02/29/2024 (Approximate), Expires: 02/28/2025 [facility] Work Phone: Comment on above: Expected: 02/29/2024 (Approximate), Expi res: 02/28/2025 Start: 02-29-2024 End: 02-29-2024 Patient encounter procedure 02/29/2024 10:00 AM EDT Office Visit [facility] [address] [place] [address] Shaista Corona, HEAT TREAT TECHNICIAN [address] [place] [address] Opioid abuse, uncomplicated (CMS/HCC) [facility] Comment on above: Opioid abuse, uncomplicated (CMS/HCC) Start: 11-21-2022 [facility] Start: 11-20-2022 Administration of prophylactic treatment [facility] Start: 11-19-2022 Physical therapy procedure [facility] Start: 11-17-2022 Blood culture for bacteria, including anaerobic screen Blood Culture [facility] Start: 11-17-2022 Fungal Culture Result 2 Fungal Culture Result 2 [facility] Start: 11-17-2022 Mycology culture [facility] Start: 11-14-2022 [facility] Start: 11-06-2022 Referral to infectious diseases physician [facility] Start: 11-05-2022 Drainage of Right Pleural Cavity with Drainage Device, Percutaneous Approach Drainage of Right Pleural Cavity with Drainage Device, Percutaneous Approach [facility] Start: 11-05-2022 Insertion of Endotracheal Airway into Trachea, Via Natural or Artificial Opening Insertion of Endotracheal Airway into Trachea, Via Natural or Artificial Opening [facility] Start: 11-05-2022 Insertion of Infusion Device into Superior Vena Cava, Percutaneous Approach Insertion of Infusion Device into Superior Vena Cava, Percutaneous Approach [facility] Start: 11-05-2022 Inspection of Tracheobronchial Tree, Via Natural or Artificial Opening Endoscopic Inspection of Tracheobronchial Tree, Via Natural or Artificial Opening Endoscopic [facility] Start: 11-05-2022 Irrigation of Respiratory Tract using Irrigating Substance, Via Natural or Artificial Opening Endoscopic, Diagnostic Irrigation of Respiratory Tract using Irrigating Substance, Via Natural or Artificial Opening Endoscopic, Diagnostic [facility] Start: 11-05-2022 Respiratory Ventilation, Greater than 96 Consecutive Hours Respiratory Ventilation, Greater than 96 Consecutive Hours [facility] Start: 11-05-2022 Sleep disorder assessment [facility] Start: 11-05-2022 Consultation [facility] Start: 11-05-2022 Hospital admission [facility] Start: 1965 Screening for malignant neoplasm of colon [facility] Fungus identified in Unspecified specimen by Culture [facility] Mycobacterium sp identified in Unspecified specimen by Organism specific culture [facility] Patient Education [facility] Work Phone: Patient referral [facility] Work Phone: XR Chest 2 Views [facility] Payers Date Payer Category Payer Self-pay [id number] 2020 Blue [employer] Blue Shield BCBS Memb er Subscriber Plan / Payer (Effective 2020-Present) Name: Lori Anton Relation to Subscriber: Self Name: Lori Anton Payer ID: Not on file Type: Not on file Address: [address] [place] [id number] 2020 Unknown BCBS BCBS xxxxxx [id number] 2020-Present [phone] [address] [place] [phone] 1965 Unknown [id number] 2.16.840.1.230245.3.579. 2.593 1967 Unknown [id number] 2.16.840.1.648281.3.579. 2.593 1967 Unknown [id number] 2.16.840.1.463876.3.579. 2.593 1967 Unknown [id number] 2.16.840.1.010827.3.579. 2.593 1967 Unknown [id number] 2.16.840.1.656385.3.579. 2.1259 1967 Unknown [id number] 2.16.840.1.258958.3.579. 2.1259 1967 Unknown [id number] 2.16.840.1.124972.3.579. 2.9 1967 Unknown [id number] 2.16.840.1.891354.3.579. 2.1259 1967 Unknown [id number] 2.16.840.1.531401.3.579. 2.1259 1967 Unknown [id number] 2.16.840.1.735870.3.579. 2.1259 1967 Unknown [id number] 2.16.840.1.316420.3.579. 2.1259 1957 Blue Cross Blue Shield [id number] 2.16.840.1.891903.19 Unknown [id number] 2.16.840.1.416951.3.579. 2.531 Unknown [id number] 2.16.840.1.155696.3.579. 2.531 Unknown [id number] 2.16.840.1.906135.3.579. 2.531 Unknown [id number] 2.16.840.1.652209.3.579. 2.531 Social History Date Type Detail Facility Start: 08-29-2023 End: 08-30-2023 Sex Assigned At [facility] Start: 11-07-2022 End: 12-08-2022 Tobacco smoking status [facility] Smoker (finding) [facility] Start: 1965 Sex Assigned At Male F [facility] Start: 07-31-2023 Tobacco smoking stat [facility] Current some day smoker [facility] Start: 07-10-1999 Tobacco smoking stat [facility] Smokes tobacco daily [facility] Start: 07-10-1999 History of tobacco use Cigarette Smo ker [facility] Start: 02-29-2024 End: 07-18-2024 Alcoholic beverage intake Lifetime non-drinker (finding) [facility] Start: 08-29-2023 End: 08-30-2023 History of Social function [facility] Do you belong to any clubs or organizations such as jain groups, unions, fraternal or athletic groups, or [...] 3cups of coffee 2-3 drinks of soda [facility] Start: 1965 Sex assigned at Not on file [facility] Goals Date Patient Goal Desired Activity /State Functional Status Date Assessment Result Facility 11-21-2022 Functional status 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 Baseline [facility] Work Phone: Mental Status Date Assessment Result Facility 11-21-2022 Cognitive function Cognitive Sta tus Patient is Progressing Toward Baseline [facility] Work Phone: Clinical Notes 07-07-2022 to 07-18-2024 Shaista Corona NP - 07/18/2024 11:26 AM ANDREI GARCIA - 07/18/2024 9:00 AM Janna Corona NP - 07/18/2024 9:00 AM Janna Corona NP - 07/18/2024 6:31 AM ESTPatient Instructions Note Date & Type Note Facility 07-18-2024 History of Presen t illness Narrative Associated Problem(s): Benign prostatic hyperplasia with weak urinary stream Did help with urination, could not ejaculate Still taking med, will change Anxiety has been getting worse Pain varies throughout the day and or week it could be the knee or the entire leg. Pt states that he received a different med for his muscle relaxer-pharmacy told him that it is due to a different supplier and is not working the same Pt states he stopped taking the potassium and water pill about 2 weeks ago Images from the original note were not included. Lori Anton is a 59 y.o. male presents with chief complaint of Leg Pain HPI: Worsening in anxiety, that suppliers with some of his fluoxetine and muscle relaxer now look different and he does not think they work as well. He is very anxious about the fact that his flomax works for urine retention, however he is unable to ejaculate, and this is overwhelming to him and would like to trial something different if possible Hypertension This is a chronic problem. The current episode started more than 1 year ago. The problem is unchanged. The problem is controlled. Associated symptoms include anxiety and peripheral edema. Pertinent negatives include no chest pain or palpitations. There are no associated agents to hypertension. Risk factors for coronary artery disease include smoking/tobacco exposure. Past treatments include YADIRA inhibitors, beta blockers and calcium channel blockers. The current treatment provides significant improvement. There are no compliance problems. Anxiety Presents for follow-up visit. Symptoms include excessive worry, irritability, muscle tension and nervous/anxious behavior. Patient reports no chest pain, decreased concentration, dizziness, palpitations or suicidal ideas. Symptoms occur most days. The severity of symptoms is moderate. Compliance with medications is 76-100%. SUBJECTIVE: MEDICATIONS: Current Outpatient Medications Medication Instructions amLODIPine (NORVASC) 10 mg, Oral, Daily Buprenorphine HCl-Naloxone HCl (Suboxone) 8-2 MG SL film dissolve 1/3 to 1/2 FILM under the tongue once daily if needed *MUST LAST 28 DAYS carvedilol (COREG) 25 mg, Oral, 2 times daily diclofenac (VOLTAREN) 50 mg, 3 times daily FLUoxetine (PROzac) 20 MG capsule Total of 3 pills daily to =60mgTotal of 3 pills daily to =60mg furosemide (LASIX) 20 mg, Oral, Daily lisinopril 40 mg, Oral, Daily potassium chloride ER (Micro-K) 10 MEQ ER capsule 10 mEq, Oral, Daily, Take with food Do not crush or chew. pramipexole (MIRAPEX) 0.5 mg, Oral, Nightly PRN tamsulosin (FLOMAX) 0.4 mg, Daily tiZANidine (ZANAFLEX) 8 mg, Oral, Every 12 hours PRN ALLERGIES: Allergies Allergen Reactions Erythromycin Unknown Penicillins Hives REVIEW OF SYMPTOMS: Review of Systems Constitutional: Positive for fatigue and irritability. Negative for activity change, appetite change and unexpected weight change. HENT: Negative for ear pain, nosebleeds, sneezing, trouble swallowing and voice change. Eyes: Negative for pain, discharge and visual disturbance. Respiratory: Negative for apnea, chest tightness and wheezing. Cardiovascular: Negative for chest pain, palpitations and leg swelling. Gastrointestinal: Negative for abdominal distention, blood in stool, constipation and diarrhea. Genitourinary: Negative for decreased urine volume, difficulty urinating, dysuria and hematuria. Musculoskeletal: Positive for arthralgias, back pain and myalgias. Skin: Negative for color change. Neurological: Negative for dizziness, tremors and seizures. Psychiatric/Behavioral: Positive for agitation. Negative for decreased concentration, hallucinations, self-injury and suicidal ideas. [...] in his mother. OBJECTIVE: Visit Vitals BP 126/82 (BP Location: Left arm, Patient Position: Sitting, BP Cuff Size: Adult long) Pulse 71 Temp 99 F (Temporal) Resp 19 Ht 6' 3 Wt 214 lb 12.8 oz SpO2 96% BMI 26.85 kg/m Smoking Status Every Day BSA 2.27 m Physical Exam Vitals and nursing note reviewed. Constitutional: Appearance: Normal appearance. HENT: Head: Normocephalic. Right Ear: External ear normal. Left Ear: External ear normal. Nose: Nose normal. Mouth/Throat: Mouth: Mucous membranes are moist. Pharynx: Oropharynx is clear. Eyes: Extraocular Movements: Extraocular movements intact. Conjunctiva/sclera: Conjunctivae normal. Neck: Vascular: No carotid bruit. Cardiovascular: Rate and Rhythm: Normal rate and regular rhythm. Pulses: Normal pulses. Heart sounds: Normal heart sounds. Pulmonary: Effort: Pulmonary effort is normal. Breath sounds: Normal breath sounds. No wheezing or rales. Musculoskeletal: Cervical back: Neck supple. Right lower leg: No edema. Left lower leg: No edema. Skin: General: Skin is warm and dry. Capillary Refill: Capillary refill takes 2 to 3 seconds. Neurological: General: No focal deficit present. Mental Status: He is alert. Psychiatric: Mood and Affect: Mood normal. Thought Content: Thought content normal. Judgment: Judgment normal. Comments: Anxious w some mild irritation ASSESSMENT AND PLAN: No follow-ups on file. Problem List Items Addressed This Visit HTN (hypertension) (CMS/HCC) Please check blood pressure daily and record DASH diet Limit caffeine Take medication as directed Contact office if chest pain, pressure, dizziness, shortness of breath, swelling legs Recommend slow position changes Current meds: amlodipine, carvedilol, lisinopril Bilateral chronic knee pain Has seen ortho Has script for diclofenac Tobacco user The patient has been advised of the risks of continued smoking: stroke, [place], all forms of cancer, lung disease, and . Options for quitting smoking include: cold turkey, hypnosis, acupuncture, nicotine replacement meds (gum, lozenges, and patches), Buproprion, and Varenicline. At this time pt is encouraged to evaluate their goals for wanting to quit smoking, and reach out to provider when ready to start this process Opioid abuse, uncomplicated ([facility]/HCC) Anxiety Is currently prescribed prozac, which he does take daily and is continuing to do well No dose changes at this time BMI 25.0-25.9,adult Spinal stenosis of lumbosacral region - Primary Has seen ortho, was being referred to a spine surgeon to see if surgery is an option Bilateral leg edema Continue w lasix At last visit started potassium, was to get labs completed in 2 weeks, no labs as of yet, will reprint order On potassium wasting diuretic therapy Continue current meds Needs recheck of elytes, order printed Associated Problem(s): Tobacco user The patient has been advised of the risks of continued smoking: stroke, [place], all forms of cancer, lung disease, and . Options for quitting smoking include: cold turkey, hypnosis, acupuncture, nicotine replacement meds (gum, lozenges, and patches), Buproprion, and Varenicline. At this time pt is encouraged to evaluate their goals for wanting to quit smoking, and reach out to provider when ready to start this process Associated Problem(s): On potassium wasting diuretic therapy Stopped taking lasix and potassium supplement Will go back to take prn swelling in legs Associated Problem(s): Anxiety Is currently prescribed prozac, which he does take daily Outside stressors: work, of family member , inability to ejaculate as well Will address ejaculation issue first, and if improved with med change, then consider add on zyprexa or abilify?? Associated Problem(s): Bilateral leg edema Stopped taking his lasix and potassium meds Discussed with pt, will have him take prn swelling in legs Associated Problem(s): Bilateral chronic knee pain Has seen ortho Has script for diclofenac, feels like it doesn't work so stopped it and trialed tylenol for a time which worked and now that isnt working either I have advised to maybe go back to trialing of diclofenac and may need to periodically switch things up Associated Problem(s): HTN (hypertension) (CMS/[facility]) Please check blood pressure daily and record DASH diet Limit caffeine Take medication as directed Contact office if chest pain, pressure, dizziness, shortness of breath, swelling legs Recommend slow position changes Current meds: amlodipine, carvedilol, lisinopril Associated Problem(s): Spinal stenosis of lumbosacral region Has seen ortho, was being referred to a spine surgeon to see if surgery is an option documented in this encounter [facility] 07-18-2024 Instructions Shaista Corona NP - 07/18/2024 9:00 AM EST I will call you about different med for prostate, then come back in about 6 weeks At that point if things are not better with anxiety we will make some adjustments documented in this encounter [facility] 05-23-2024 History of Presen t illness Narrative Associated Problem(s): Degenerative joint disease of knee Recommend ice to the knee 3-4 times daily Recommend at least trying to possibly take diclofenac once a day, may still be helping more with inflammation then the pain levels Associated Problem(s): Needs flu shot Declines at this time Associated Problem(s): On potassium wasting diuretic therapy Potassium is 3.4, BUN/CR stable Will add KCL at 10 Meq daily Recheck labs in 2 weeks Associated Problem(s): Bilateral leg edema Continue w lasix Reviewed labs Will add potassium daily Recheck labs in 2 weeks Images from the original note were not included. Lori Anton is a 58 y.o. male presents with chief complaint of No chief complaint on file. HPI: Here for recheck of swelling in legs: Last appt started on Lasix, swelling is better Had labs this morning No chest pain/pressure, dyspnea Urinating adequately Increase in left knee pain and swelling, sees ortho next week, he did stop his diclofenac about 3 weeks ago which does co inside with when knee swelling started to worsen SUBJECTIVE: MEDICATIONS: Current Outpatient Medications Medication Instructions [...] Oral, Daily lisinopril 40 mg, Oral, Daily potassium chloride ER (Micro-K) 10 MEQ ER capsule 10 mEq, Oral, Daily, Take with food Do not crush or chew. pramipexole (MIRAPEX) 0.5 mg, Oral, Nightly PRN tiZANidine (ZANAFLEX) 8 mg, Oral, Every 12 hours PRN ALLERGIES: Allergies Allergen Reactions Erythromycin Unknown Penicillins Hives REVIEW OF SYMPTOMS: Review of Systems Constitutional: Negative for activity change, appetite change and unexpected weight change. HENT: Negative for ear pain, nosebleeds, sneezing, trouble swallowing and voice change. Eyes: Negative for pain, discharge and visual disturbance. Respiratory: Negative for apnea, chest tightness and wheezing. Cardiovascular: Negative for leg swelling. Gastrointestinal: Negative for abdominal distention, blood in stool, constipation and diarrhea. Genitourinary: Negative for decreased urine volume, difficulty urinating, dysuria and hematuria. Musculoskeletal: Positive for arthralgias, back pain, gait problem and joint swelling. Skin: Negative for color [...] in his mother. OBJECTIVE: Visit Vitals BP 118/80 (BP Location: Left arm, Patient Position: Sitting, BP Cuff Size: Adult long) Pulse 66 Temp 98.4 F (Temporal) Resp 18 Ht 6' 3 Wt 213 lb 12.8 oz SpO2 97% BMI 26.72 kg/m Smoking Status Every Day BSA 2.27 m Physical Exam Vitals and nursing note [...] sounds. Pulmonary: Effort: Pulmonary effort is normal. Breath sounds: Normal breath sounds. Musculoskeletal: Cervical back: Neck supple. Right lower leg: Edema present. Left lower leg: Edema present. Comments: Trace pre tibial edema +swelling to left knee Skin: General: Skin is warm and dry. Capillary Refill: Capillary refill takes 2 to 3 seconds. Neurological: General: No focal deficit present. Mental Status: He is alert. Psychiatric: Mood and Affect: Mood normal. Behavior: Behavior normal. Thought Content: Thought content normal. Judgment: Judgment normal. ASSESSMENT AND PLAN: Follow up in about 6 weeks (around 07/04/2024) for Recheck. Problem List Items Addressed This Visit HTN (hypertension) (CMS/HCC) Please check blood pressure daily and record DASH diet Limit caffeine Take medication as directed Contact office if chest pain, pressure, dizziness, shortness of breath, swelling legs Recommend slow position changes Degenerative joint disease of knee Recommend ice to the knee 3-4 times daily Recommend at least trying to possibly take diclofenac once a day, may still be helping more with inflammation then the pain levels Tobacco user The patient has been advised of the risks of continued smoking: stroke, [place], all forms of cancer, lung disease, and . Options for quitting smoking include: cold turkey, hypnosis, acupuncture, nicotine replacement meds (gum, lozenges, and patches), Buproprion, and Varenicline. At this time pt is encouraged to evaluate their goals for wanting to quit smoking, and reach out to provider when ready to start this process Bilateral leg edema - Primary Continue w lasix Reviewed labs Will add potassium daily Recheck labs in 2 weeks Relevant Medications furosemide (Lasix) 20 MG tablet Other Relevant Orders Basic metabolic panel On potassium wasting diuretic therapy Potassium is 3.4, BUN/CR stable Will add KCL at 10 Meq daily Recheck labs in 2 weeks Relevant Medications potassium chloride ER (Micro-K) 10 MEQ ER capsule Other Relevant Orders Basic metabolic panel Needs flu shot Declines at this time Associated Problem(s): Tobacco user The patient has been advised of the risks of continued smoking: stroke, [place], all forms of cancer, lung disease, and . Options for quitting smoking include: cold turkey, hypnosis, acupuncture, nicotine replacement meds (gum, lozenges, and patches), Buproprion, and Varenicline. At this time pt is encouraged to evaluate their goals for wanting to quit smoking, and reach out to provider when ready to start this process Associated Problem(s): HTN (hypertension) (CMS/[facility]) Please check blood pressure daily and record DASH diet Limit caffeine Take medication as directed Contact office if chest pain, pressure, dizziness, shortness of breath, swelling legs Recommend slow position changes documented in this encounter [facility] 05-23-2024 Instructions Shaista Corona NP - 05/23/2024 9:00 AM EST Continue water pill (lasix/furosemide) Add potassium pill once a day with food Recheck labs in 2 weeks around 06/04/25 Follow up appt in 6 weeks documented in this encounter [facility] 05-02-2024 History of Presen t illness Narrative [...] the original note were not included. Lori Jayesh Anton is a 58 y.o. male presents [...] catch) Uric acid documented in this encounter [facility] 12-28-2022 Evaluation note Encounter Date Diagnosis Assessment Notes Dec, Pneumonia of right lower lobe due to infectious organism (ICD-10 - J18.9) Dec, History of pneumothorax (ICD-10 - Z87.09) Dec, Tobacco use disorder (ICD-10 - F17.200) [employer] Other 05-15-2023 Progress note Author Ismael Huitron [facility] November 21, 2022 11:17am Note Date/Time November 21, 2022 11:17 am [facility] [address] [place] [address] Pulmonology Progress Note Signed Patient: Lori Anton MR#: [id number] : 1965 Acct:[id number] Age/Sex: 57 / M Adm Date: 3 Loc: 4 Room: [address] [place] [address] Type: ADM IN Attending Dr: Rubi Ramos [...] Intake Total 450 / 1999 Balance 450 / 1999 Weight 97.1 kg Labs 11/21/22 04:15 [...] <Electronically signed by Ismael Huitron MD> 11/21/22 1111 [facility] Work Phone: 1(573) 316-174105-15-2023 Progress note Author Sanjay Holt [facility] November 21, 2022 9:14am Note Date/Time November 21, 2022 9:15a m [facility] [address] [place] [address] Infect. Disease Progress Note Signed Patient: Lori Anton MR#: [id number] : 1965 Acct:[id number] Age/Sex: 57 / M Adm Date: 3 Loc: Room: [address] [place] [address] Type: ADM IN Attending Dr: Rubi Ramos [...] 2 Mg Tab.Subl) 2 mg SUBLINGUAL BID [facility] Stop: 05/18/23 09:26 Last Admin: 11/20/22 22:02 Dose: 2 mg Docusate Sodium (Docusate 100 Mg Capsule) 100 mg PO BID PRN PRN Reason: Constipation Stop: 11/18/23 10:23 Enoxaparin Sodium (Enoxaparin 40 Mg/0.4 Ml Syringe) 40 mg SUBCUT DAILY@1000 [facility] Stop: 11/06/23 09:59 Last Admin: 11/20/22 09:03 Dose: 40 mg Fluoxetine HCl (Fluoxetine 20 Mg Capsule) 40 mg PO HS [facility] Stop: 11/20/23 21:59 Last Admin: 11/20/22 22:02 Dose: 40 mg Fluoxetine HCl (Fluoxetine 20 Mg Capsule) 20 mg PO DAILY@0600 [facility] Stop: 11/20/23 05:59 Last Admin: 11/21/22 05:46 Dose: 20 mg Heparin Sodium (Porcine) (Heparin-Lock 500 Unit/5 Ml Syringe) 0 unit IV-PUSH QSHIFT [facility] Stop: 11/14/23 21:59 Last Admin: 11/21/22 05:46 Dose: 500 unit Linezolid (Zyvox) 600 mg in 300 mls @ 300 mls/hr IV Q12H [facility] Last Admin: 11/20/22 22:02 Dose: 300 mls/hr Meropenem (Merrem) 1 gm in 100 mls @ 33.333 mls/hr IV Q8H [facility] Last Admin: 11/21/22 03:48 Dose: 33.3 mls/hr Lidocaine HCl (Lidocaine 1% Pf 5 Ml Inj.Zara) 10 ml INFILTRATN ONCE PRN PRN Reason: Pain Metoprolol Tartrate (Metoprolol Tartrate 12.5 Mg Tablet) 12.5 mg PO BID [facility] Stop: 11/18/23 20:59 Last Admin: [...] 7 days Documented By: Sanjay Holt MD 11/21/22 0909 Signed By: <Electronically signed by MD Sanjay Holt> 11/21/2214 [facility] Work Phone: 1([phone] Progress note Author Shant Villegas [facility] November 20, 2022 3:35pm Note Date/Time November 20, 2022 3:35p m [facility] [address] [place] [address] Hospitalist Progress Note Signed Patient: Lori Anton MR#: [id number] : 1965 Acct:[id number] Age/Sex: 57 / M Adm Date: 3 Loc: 4 Room: [address] [place] [address] Type: ADM IN Attending Dr: Shant Villegas [...] cough, and right-sided chest pain to the [facility] ED and Transferred for the evaluation [...] 11/18/22 10:24 Docusate 100 Mg Capsule PO 05/11/24 10:23 BID PRN Constipation Enoxaparin Sodium 40 [...] 11/20/22 09:03 Merrem IV 33.33 mls/hr Q8H [facility] Administration Lidocaine HCl 10 ml 11/09/22 13:55 [...] . Documented By: Shant Villegas MD 11/20/22 9308 Signed By: <Electronically signed by Shant Villegas MD> 11/20/22 1535 [facility] Work Phone: 1([phone] 383-364205-14-2023 Progress note Author Ismael Huitron [facility] November 20, 2022 1:40pm Note Date/Time November 20, 2022 1:40p m [facility] [address] [place] [address] Pulmonology Progress Note Signed Patient: Lori Anton MR#: [id number] : 1965 Acct:[id number] Age/Sex: 57 / M Adm Date: 3 Loc: Room: [address] [place] [address] Type: ADM IN Attending Dr: Shant Villegas [...] signed by Ismael Huitron MD> 11/20/22 1340 [facility] Work Phone: [phone] Progress note Author Sanjay Holt [facility] November 20, 2022 9:05am Note Date/Time November 20, 2022 9:05a m [facility] [address] [place] [address] Infect. Disease Progress Note Signed Patient: Lori Anton MR#: [id number] : 1965 Acct:[id number] Age/Sex: 57 / M Adm Date: 3 Loc: Room: [address] [place] [address] Type: ADM IN Attending Dr: Shant Villegas [...] 2 Mg Tab.Subl) 2 mg SUBLINGUAL BID [facility] Stop: 05/18/23 09:26 Last Admin: 11/20/22 08:23 Dose: 2 mg Docusate Sodium (Docusate 100 Mg Capsule) 100 mg PO BID PRN PRN Reason: Constipation Stop: 11/18/23 10:23 Enoxaparin Sodium (Enoxaparin 40 Mg/0.4 Ml Syringe) 40 mg SUBCUT DAILY@1000 [facility] Stop: 11/06/23 09:59 Last Admin: 11/19/22 09:06 Dose: 40 mg Fluoxetine HCl (Fluoxetine 20 Mg Capsule) 40 mg PO HS [facility] Stop: 11/20/23 21:59 Fluoxetine HCl (Fluoxetine 20 Mg Capsule) 20 mg PO DAILY@0600 [facility] Stop: 11/20/23 05:59 Last Admin: 11/20/22 06:04 Dose: 20 mg Heparin Sodium (Porcine) (Heparin-Lock 500 Unit/5 Ml Syringe) 0 unit IV-PUSH QSHIFT [facility] Stop: 11/14/23 21:59 Last Admin: 11/20/22 06:04 Dose: 2,000 unit Linezolid (Zyvox) 600 mg in 300 mls @ 300 mls/hr IV Q12H [facility] Last Admin: 11/20/22 00:33 Dose: 300 mls/hr Meropenem (Merrem) 1 gm in 100 mls @ 33.333 mls/hr IV Q8H [facility] Last Admin: 11/20/22 03:00 Dose: 33.33 mls/hr Lidocaine HCl (Lidocaine 1% Pf 5 Ml Inj.Zara) 10 ml INFILTRATN ONCE PRN PRN Reason: Pain Melatonin (Melatonin 5 Mg Tablet) 5 mg PO QHS [facility] Stop: 11/19/23 21:59 Last Admin: 11/19/22 21:12 Dose: 5 mg Metoprolol Tartrate (Metoprolol Tartrate 12.5 Mg Tablet) 12.5 mg PO BID [facility] Stop: 11/18/23 20:59 Last Admin: [...] <Electronically signed by MD Sanjay Holt> 11/20/22904 [facility] Work Phone: [phone] 447-133105-13-2023 Progress note Author Shant Villegas [facility] November 19, 2022 1:31pm Note Date/Time November 19, 2022 1:31p m [facility] [address] [place] [address] Hospitalist Progress Note Signed Patient: Lori Anton MR#: [id number] : 1965 Acct:[id number] Age/Sex: 57 / M Adm Date: 3 Loc: Room: [address] [place] [address] Type: ADM IN Attending Dr: Shant Villegas [...] cough, and right-sided chest pain to the [facility] ED and Transferred for the evaluation [...] signed by Shant Villegas MD> 11/19/22 1331 [facility] Work Phone: [phone] Progress note Author Ismael Huitron [facility] November 19, 2022 12:32pm Note Date/Time November 19, 2022 12:32 pm [facility] [address] [place] [address] Pulmonology Progress Note Signed Patient: Lori Anton MR#: [id number] : 1965 Acct:[id number] Age/Sex: 57 / M Adm Date: 3 Loc: Room: [address] [place] [address] Type: ADM IN Attending Dr: Shant Villegas [...] signed by Ismael Huitron MD> 11/19/22 1232 [facility] Work Phone: [phone] Progress note Author Sanjay Holt [facility] November 19, 2022 9:45am Note Date/Time November 19, 2022 9:45a m [facility] [address] [place] [address] Infect. Disease Progress Note Signed Patient: Lori Anton MR#: [id number] : 1965 Acct:[id number] Age/Sex: 57 / M Adm Date: 3 Loc: Room: [address] [place] [address] Type: ADM IN Attending Dr: Shant Villegas [...] 2 Mg Tab.Subl) 2 mg SUBLINGUAL BID [facility] Stop: 05/18/23 09:26 Last Admin: 11/19/22 09:33 Dose: 2 mg Docusate Sodium (Docusate 100 Mg Capsule) 100 mg PO BID PRN PRN Reason: Constipation Stop: 11/18/23 10:23 Enoxaparin Sodium (Enoxaparin 40 Mg/0.4 Ml Syringe) 40 mg SUBCUT DAILY@1000 [facility] Stop: 11/06/23 09:59 Last Admin: 11/19/22 09:06 Dose: 40 mg Fluoxetine HCl (Fluoxetine Soln 20 Mg/5 Ml) 40 mg PO HS [facility] Stop: 11/07/23 21:59 Last Admin: 11/16/22 21:14 Dose: 40 mg Fluoxetine HCl (Fluoxetine Soln 20 Mg/5 Ml) 20 mg PO DAILY@0600 [facility] Stop: 11/08/23 05:59 Last Admin: 11/17/22 05:13 Dose: 20 mg Heparin Sodium (Porcine) (Heparin-Lock 500 Unit/5 Ml Syringe) 0 unit IV-PUSH QSHIFT [facility] Stop: 11/14/23 21:59 Last Admin: 11/19/22 06:42 Dose: 500 unit Hydromorphone HCl (Hydromorphone 1 Mg/Ml Syringe) 1 mg IV-PUSH Q4H PRN PRN Reason: Pain Linezolid (Zyvox) 600 mg in 300 mls @ 300 mls/hr IV Q12H [facility] Last Admin: 11/18/22 22:59 Dose: 300 mls/hr Meropenem (Merrem) 1 gm in 100 mls @ 33.333 mls/hr IV Q8H [facility] Last Admin: 11/19/22 09:07 Dose: 33.33 mls/hr Lidocaine HCl (Lidocaine 1% Pf 5 Ml Inj.Zara) 10 ml INFILTRATN ONCE PRN PRN Reason: Pain Magnesium Hydroxide (Magnesium Hydroxide Susp 30 Ml Udc) 30 ml PO DAILY PRN PRN Reason: Constipation Stop: 11/07/23 07:44 Last Admin: 11/16/22 08:46 Dose: 30 ml Metoprolol Tartrate (Metoprolol Tartrate 12.5 Mg Tablet) 12.5 mg PO BID [facility] Stop: 11/18/23 20:59 Last Admin: 11/19/22 09:07 Dose: 12.5 mg Naproxen (Naproxen 500 Mg Tablet) 500 mg PO BID.WITH.MEALS PRN PRN Reason: Pain Stop: 11/18/23 16:47 Last Admin: 11/19/22 09:06 Dose: 500 mg Nicotine (Nicotine Patch 21 Mg/24hr 1 Each Patch.Td24) 1 each TRANSDERML DAILY PRN PRN Reason: Nicotine Cravings Stop: 12/16/22 09:01 Pantoprazole Sodium (Pantoprazole 40 Mg Vial) 40 mg IV-PUSH DAILY [facility] Stop: 11/08/23 08:59 Last Admin: [...] meropenem. Only new culture result from the [facility] positive was corynebacterium. Patient clinically is better [...] signed by MD Sanjay Holt> 11/19/22 0945 [facility] Work Phone: 1([phone] Progress note Author Shant Villegas [facility] November 18, 2022 12:45pm Note Date/Time November 18, 2022 12:44 pm [facility] [address] [place] [address] Hospitalist Progress Note Signed Patient: Lori Anton MR#: [id number] : 1965 Acct:[id number] Age/Sex: 57 / M Adm Date: 3 Loc: Room: [address] [place] [address] Type: ADM IN Attending Dr: Shant Villegas [...] cough, and right-sided chest pain to the [facility] ED and Transferred for the evaluation [...] - 3 or fever Albuterol 2.5 mg 05/12/23 09:43 Albuterol Neb 2.5 Mg/3 Ml Vial.Neb [...] signed by Shant Villegas MD> 11/18/22 1245 [facility] Work Phone: [phone] Progress note Author Ismael Huitron [facility] November 18, 2022 12:09pm Note Date/Time November 18, 2022 11:33 am [facility] [address] [place] [address] Pulmonology Progress Note Signed Patient: Lori Antno MR#: [id number] : 1965 Acct:[id number] Age/Sex: 57 / M Adm Date: 3 Loc: Room: [address] [place] [address] Type: ADM IN Attending Dr: Shant Villegas [...] signed by Ismael Huitron MD> 11/18/22 120 [facility] Work Phone: [phone] Progress note Author Sanjay Holt [facility] November 18, 2022 10:49am Note Date/Time November 18, 2022 10:49 am [facility] [address] [place] [address] Infect. Disease Progress Note Signed Patient: Lori Anton MR#: [id number] : 1965 Acct:[id number] Age/Sex: 57 / M Adm Date: 3 Loc: Room: [address] [place] [address] Type: ADM IN Attending Dr: Shant Villegas [...] 06:33 79 131/69 11/18/22 05:34 79 131/69 05/12/23 06:00 40 11/18/22 06:00 95 H 20 [...] ml @ 33.333 mls/hr IV Q8H [facility] Rx#:[id number] fentaNYL 1,000 mcg-*D5W* 1,000 100 / 200 200 / 200 mcg In 100 ml @ 25 MCG/HR 2.5 mls/hr IV .Q24H [facility] Rx#: [id number] propofoL 1,000 mg In 100 ml @ 200 / 400 200 / 200 20 MCG/KG/MIN 12.6 mls/hr IV . Q7H57M [facility] Rx#:[id number] Tube Feeding 982 / 982 Output: Urine [...] Mg/0.4 Ml Syringe) 40 mg SUBCUT DAILY@1000 [facility] Stop: 11/06/23 09:59 Last Admin: 11/18/22 09:57 Dose: 40 mg Fluoxetine HCl (Fluoxetine Soln 20 Mg/5 Ml) 40 mg PO HS [facility] Stop: 11/07/23 21:59 Last Admin: 11/16/22 21:14 Dose: 40 mg Fluoxetine HCl (Fluoxetine Soln 20 Mg/5 Ml) 20 mg PO DAILY@0600 [facility] Stop: 11/08/23 05:59 Last Admin: 11/17/22 05:13 Dose: 20 mg Heparin Sodium (Porcine) (Heparin-Lock 500 Unit/5 Ml Syringe) 0 unit IV-PUSH QSHIFT [facility] Stop: 11/14/23 21:59 Last Admin: 11/18/22 06:37 Dose: 1,000 unit Linezolid (Zyvox) 600 mg in 300 mls @ 300 mls/hr IV Q12H [facility] Last Admin: 11/17/22 22:16 Dose: 300 mls/hr Meropenem (Merrem) 1 gm in 100 mls @ 33.333 mls/hr IV Q8H [facility] Last Admin: 11/18/22 01:54 Dose: [...] 12.5 Mg Tablet) 12.5 mg OG-TUBE BID [facility] Stop: 11/17/23 11:29 Last Admin: 11/18/22 09:57 Dose: 12.5 mg Nicotine (Nicotine Patch 21 Mg/24hr 1 Each Patch.Td24) 1 each TRANSDERML DAILY PRN PRN Reason: Nicotine Cravings Stop: 12/16/22 09:01 Pantoprazole Sodium (Pantoprazole 40 Mg Vial) 40 mg IV-PUSH DAILY [facility] Stop: 11/08/23 08:59 Last Admin: 11/18/22 09:57 [...] 10 Ml Vial.Pf) 10 ml INJECTION DAILY [facility] Stop: 11/08/23 08:59 Last Admin: 11/18/22 09:57 [...] signed by MD Sanjay Holt> 11/18/22 1049 [facility] Work Phone: [phone] Progress note Author Sanjay Holt [facility] November 18, 2022 10:45am Note Date/Time November 17, 2022 9:25a m [facility] [address] [place] [address] Infect. Disease Progress Note Signed Patient: Lori Anton MR#: [id number] : 1965 Acct:[id number] Age/Sex: 57 / M Adm Date: 3 Loc: Room: [address] [place] [address] Type: ADM IN Attending Dr: Shant Villegas [...] Puff/18 Gm Inhaler) 6 puff VENT Q6HR [facility] Stop: 11/07/23 11:59 Last Admin: 11/17/22 05:09 Dose: 6 puff Chlorhexidine Gluconate (Chlorhexidine Gluconate 0.12% 15 Ml Udc) 15 ml MUCOUS MEM BID [facility] Stop: 11/07/23 09:09 Last Admin: 11/17/22 08:39 Dose: 15 ml Docusate Sodium (Docusate Liquid 100 Mg/10 Ml Udc) 100 mg OG-TUBE BID [facility] Stop: 11/07/23 08:59 Last Admin: 11/17/22 08:39 Dose: 100 mg Enoxaparin Sodium (Enoxaparin 40 Mg/0.4 Ml Syringe) 40 mg SUBCUT DAILY@1000 [facility] Stop: 11/06/23 09:59 Last Admin: 11/16/22 09:26 Dose: 40 mg Fluoxetine HCl (Fluoxetine Soln 20 Mg/5 Ml) 40 mg PO HS [facility] Stop: 11/07/23 21:59 Last Admin: 11/16/22 21:14 Dose: 40 mg Fluoxetine HCl (Fluoxetine Soln 20 Mg/5 Ml) 20 mg PO DAILY@0600 [facility] Stop: 11/08/23 05:59 Last Admin: 11/17/22 05:13 Dose: 20 mg Heparin Sodium (Porcine) (Heparin-Lock 500 Unit/5 Ml Syringe) 0 unit IV-PUSH QSHIFT [facility] Stop: 11/14/23 21:59 Last Admin: 11/17/22 05:12 Dose: 1,500 unit Fentanyl (Fentanyl 1,000 Mcg/100 Ml D5w) 1,000 mcg in 100 mls @ 2.5 mls/hr IV .Q24H [facility]; Protocol Last Titration: 11/17/22 07:52 Dose: 125 mcg/hr, 12.5 mls/hr Propofol (Diprivan) 1,000 mg in 100 mls @ 12.6 mls/hr IV .Q7H57M [facility]; Protocol Stop: 11/07/23 07:59 Last Titration: 11/17/22 07:52 Dose: 30 mcg/kg/min, 18.9 mls/hr Midazolam HCl (Versed) 100 mg in 100 mls @ 1 mls/hr IV .Q24H [facility]; Protocol Stop: 05/08/23 10:59 Last Admin: 11/16/22 [...] 40 Mg Vial) 40 mg IV-PUSH DAILY [facility] Stop: 11/08/23 08:59 Last Admin: 11/17/22 08:39 [...] 10 Ml Syringe) 0 ml IV-PUSH QSHIFT [facility] Stop: 11/05/23 05:59 Last Admin: 11/17/22 05:13 [...] meropenem. Documented By: Sanjay Holt MD 11/17/22 0976 Signed By: <Electronically signed by MD Sanjay Holt> 11/18/22 4303 [facility] Work Phone: [phone] Progress note Author Shant Villegas [facility] November 17, 2022 3:17pm Note Date/Time November 17, 2022 3:17p m [facility] [address] [place], [place] [id number] Hospitalist Progress Note Signed Patient: Lori Anton MR#: [id number] : 1965 Acct:[id number] Age/Sex: 57 / M Adm Date: 3 Loc: Room: 7Q0574-7 Type: ADM IN Attending Dr: Shant Villegas [...] cough, and right-sided chest pain to the [facility] ED and Transferred for the evaluation [...] signed by Shant Villegas MD> 11/17/22 1517 [facility] Work Phone: [phone] Progress note Author Reginald Arroyo [facility] November 17, 2022 10:25am Note Date/Time November 17, 2022 8:48a m [facility] [address] [place] [address] Pulmonology Progress Note Signed Patient: Lori Anton MR#: [id number] : 1965 Acct:[id number] Age/Sex: 57 / M Adm Date: 3 Loc: Room: [address] [place] [address] Type: ADM IN Attending Dr: Shant Villegas [...] colon. Documented By: Reginald Arroyo MD 3 [id number] Signed By: <Electronically signed by MD Reginald Arroyo> 11/17/22 1022 [facility] Work Phone: [phone] Progress note Author Shant Villegas [facility] November 16, 2022 3:46pm Note Date/Time November 16, 2022 3:35p m [facility] [address] [place] [address] Hospitalist Progress Note Signed Patient: Lori Anton MR#: [id number] : 1965 Acct:[id number] Age/Sex: 57 / M Adm Date: 3 Loc: Room: [address] [place] [address] Type: ADM IN Attending Dr: Shant Villegas [...] cough, and right-sided chest pain to the [facility] ED and Transferred for the evaluation and treatment of Bacterial pneumonia Bacterial pneumonia/Parainfluenza Infection Since patient remains intubated and had a spike of fever this morning. CTA chest obtained earlier today showed consolidative changes involving lower lobes and cavitary component in the right middle lobe. Patient being followed by pulmonary service and infectious disease and [facility]. Currently is off antibiotics. He [...] Tab.Subl SUBLINGUAL 05/06/23 05:59 2 mg BID@0600,1800 [facility] Administration Carvedilol 12.5 mg 11/06/22 21:00 11/08/22 [...] signed by Shant Villegas MD> 11/16/22 1546 [facility] Work Phone: [phone] Progress note Author Reginald Arroyo [facility] November 16, 2022 11:03am Note Date/Time November 16, 2022 8:20a m [facility] [address] [place] [address] Pulmonology Progress Note Signed Patient: Lori Anton MR#: [id number] : 1965 Acct:[id number] Age/Sex: 57 / M Adm Date: 3 Loc: Room: [address] [place] [address] Type: ADM IN Attending Dr: Shant Villegas [...] 180 Weight 103.9 kg Labs 11/16/22 05:30 05/10/23 05:30 Microbiology Micro: Microbiology 11/14/22 14:19 AFB [...] care. Documented By: Reginald Arroyo MD 3 [id number] Signed By: <Electronically signed by MD Reginald Arroyo> 11/16/22 0880 [facility] Work Phone: [phone] Progress note Author Sanjay Holt [facility] November 16, 2022 9:24am Note Date/Time November 16, 2022 9:05a m [facility] [address] [place], [place] [address] Infect. Disease Progress Note Signed Patient: Lori Anton MR#: [id number] : 1965 Acct:[id number] Age/Sex: 57 / M Adm Date: 3 Loc: Room: [address] [place] [address] Type: ADM IN Attending Dr: Shant Villegas [...] Puff/18 Gm Inhaler) 6 puff VENT Q6HR [facility] Stop: 11/07/23 11:59 Last Admin: 11/16/22 05:08 Dose: 6 puff Amlodipine Besylate (Amlodipine 10 Mg Tablet) 10 mg PO DAILY@0600 [facility] Stop: 11/05/23 08:59 Last Admin: 11/08/22 07:00 Dose: 10 mg Buprenorphine HCl (Buprenorphine Hcl 2 Mg Tab.Subl) 2 mg SUBLINGUAL BID@0600,1800 [facility] Stop: 05/06/23 05:59 Last Admin: 11/07/22 06:38 Dose: 2 mg Carvedilol (Carvedilol 12.5 Mg Tablet) 12.5 mg PO BID@0600,1800 [facility] Stop: 11/06/23 20:59 Last Admin: 11/08/22 07:00 Dose: 12.5 mg Chlorhexidine Gluconate (Chlorhexidine Gluconate 0.12% 15 Ml Udc) 15 ml MUCOUS MEM BID [facility] Stop: 11/07/23 09:09 Last Admin: 11/16/22 08:46 Dose: 15 ml Docusate Sodium (Docusate Liquid 100 Mg/10 Ml Udc) 100 mg OG-TUBE BID [facility] Stop: 11/07/23 08:59 Last Admin: 11/16/22 08:46 Dose: 100 mg Enoxaparin Sodium (Enoxaparin 40 Mg/0.4 Ml Syringe) 40 mg SUBCUT DAILY@1000 [facility] Stop: 11/06/23 09:59 Last Admin: 11/15/22 10:16 Dose: 40 mg Fluoxetine HCl (Fluoxetine Soln 20 Mg/5 Ml) 40 mg PO HS [facility] Stop: 11/07/23 21:59 Last Admin: 11/15/22 22:31 Dose: 40 mg Fluoxetine HCl (Fluoxetine Soln 20 Mg/5 Ml) 20 mg PO DAILY@0600 [facility] Stop: 11/08/23 05:59 Last Admin: 11/16/22 05:39 Dose: 20 mg Heparin Sodium (Porcine) (Heparin-Lock 500 Unit/5 Ml Syringe) 0 unit IV-PUSH QSHIFT [facility] Stop: 11/14/23 21:59 Last Admin: 11/16/22 05:47 Dose: 1,000 unit Fentanyl (Fentanyl 1,000 Mcg/100 Ml D5w) 1,000 mcg in 100 mls @ 2.5 mls/hr IV .Q24H [facility]; Protocol Last Admin: 11/15/22 19:06 Dose: 200 mcg/hr, 20 mls/hr Propofol (Diprivan) 1,000 mg in 100 mls @ 12.6 mls/hr IV .Q7H57M [facility]; Protocol Stop: 11/07/23 07:59 Last Admin: 11/16/22 08:47 Dose: 20 mcg/kg/min, 12.6 mls/hr Midazolam HCl (Versed) 100 mg in 100 mls @ 1 mls/hr IV .Q24H [facility]; Protocol Stop: 05/08/23 10:59 Last Titration: 11/16/22 08:48 Dose: 5 mg/hr, 5 mls/hr Sodium Chloride (0.45% Sodium Chloride 1,000 Ml) 1,000 mls @ 150 mls/hr IV .Q6H40M [facility] Stop: 11/16/22 15:39 Lidocaine HCl (Lidocaine 1% Pf 5 Ml Inj.Zara) 10 ml INFILTRATN ONCE PRN PRN Reason: Pain Lisinopril (Lisinopril 20 Mg Tablet) 20 mg PO DAILY@0600 [facility] Stop: 11/06/23 08:59 Last Admin: [...] 40 Mg Vial) 40 mg IV-PUSH DAILY [facility] Stop: 11/08/23 08:59 Last Admin: [...] elevated. On admission respiratory PCR panel at [place] without targeted pathogen but parainfluenza 3 virus targeted here. Legionella urine antigen negative, Legionella antibodies negative. Urine strep antigen negative. HIV negative. At this time he is off antibiotics and has been for only a day. Documented By: Sanjay Holt MD 11/16/22 0858 Signed By: <Electronically signed by MD Sanjay Holt> 11/16/2224 [facility] Work Phone: [phone] Progress note Author Shant Villegas [facility] November 15, 2022 2:30pm Note Date/Time November 15, 2022 2:30pm [facility] [address] [place] [address] Hospitalist Progress Note Signed Patient: Lori Anton MR#: [id number] : 1965 Acct:[id number] Age/Sex: 57 / M Adm Date: 3 Loc: Room: [address] [place] [address] Type: ADM IN Attending Dr: Shant Villegas [...] cough, and right-sided chest pain to the [facility] ED and Transferred for the evaluation and treatment of Bacterial pneumonia Bacterial pneumonia/Parainfluenza Infection Per chest CTA report done at [facility], there is evidence of 2.6 cm [...] signed by Shant Villegas MD> 11/15/22 1430 [facility] Work Phone: 1([phone]) 140-236305-09-2023 Progress note Author Reginald Arroyo [facility] November 15, 2022 12:14pm Note Date/Time November 15, 2022 8:22am [facility] [address] [place] [address] Pulmonology Progress Note Signed Patient: Lori Anton MR#: [id number] : 1965 Acct:[id number] Age/Sex: 57 / M Adm Date: 3 Loc: Room: [address] [place] [address] Type: ADM IN Attending Dr: Shant Villegas [...] <Electronically signed by MD Reginald Arroyo> 11/15/22 [facility] Work Phone: [phone] Progress note Author Sanjay Holt [facility] November 15, 2022 9:37am Note Date/Time November 15, 2022 9:37am [facility] [address] [place] [address] Infect. Disease Progress Note Signed Patient: Lori Anton MR#: [id number] : 1965 Acct:[id number] Age/Sex: 57 / M Adm Date: 3 Loc: Room: [address] [place] [address] Type: ADM IN Attending Dr: Shant Villegas [...] Puff/18 Gm Inhaler) 6 puff VENT Q6HR [facility] Stop: 11/07/23 11:59 Last Admin: 11/15/22 05:24 Dose: 6 puff Albuterol/Ipratropium (Ipratropium/Albuterol 0.5-3 Mg 3 Ml Ampul.Neb) 3 ml INHALATION QID.RESP [facility] Stop: 11/05/23 07:59 Last Admin: 11/07/22 09:05 Dose: Not Given Amlodipine Besylate (Amlodipine 10 Mg Tablet) 10 mg PO DAILY@0600 [facility] Stop: 11/05/23 08:59 Last Admin: 11/08/22 07:00 Dose: 10 mg Budesonide (Budesonide 0.5 Mg/2 Ml Ampul.Neb) 0.5 mg INHALATION BID [facility] Stop: 11/05/23 11:39 Last Admin: 11/06/22 20:43 Dose: 0.5 mg Buprenorphine HCl (Buprenorphine Hcl 2 Mg Tab.Subl) 2 mg SUBLINGUAL BID@0600,1800 [facility] Stop: 05/06/23 05:59 Last Admin: 11/07/22 06:38 Dose: 2 mg Carvedilol (Carvedilol 12.5 Mg Tablet) 12.5 mg PO BID@0600,1800 [facility] Stop: 11/06/23 20:59 Last Admin: 11/08/22 07:00 Dose: 12.5 mg Chlorhexidine Gluconate (Chlorhexidine Gluconate 0.12% 15 Ml Udc) 15 ml MUCOUS MEM BID [facility] Stop: 11/07/23 09:09 Last Admin: 11/15/22 08:10 Dose: 15 ml Docusate Sodium (Docusate Liquid 100 Mg/10 Ml Udc) 100 mg OG-TUBE BID [facility] Stop: 11/07/23 08:59 Last Admin: 11/15/22 08:10 Dose: 100 mg Enoxaparin Sodium (Enoxaparin 40 Mg/0.4 Ml Syringe) 40 mg SUBCUT DAILY@1000 [facility] Stop: 11/06/23 09:59 Last Admin: 11/14/22 15:06 Dose: 40 mg Fluoxetine HCl (Fluoxetine Soln 20 Mg/5 Ml) 40 mg PO HS [facility] Stop: 11/07/23 21:59 Last Admin: 11/14/22 21:47 Dose: 40 mg Fluoxetine HCl (Fluoxetine Soln 20 Mg/5 Ml) 20 mg PO DAILY@0600 [facility] Stop: 11/08/23 05:59 Last Admin: 11/15/22 05:47 Dose: 20 mg Guaifenesin (Guaifenesin 600 Mg Tab.Er.12h) 1,200 mg PO BID [facility] Stop: 11/06/23 12:54 Last Admin: 11/06/22 20:51 Dose: 1,200 mg Heparin Sodium (Porcine) (Heparin-Lock 500 Unit/5 Ml Syringe) 0 unit IV-PUSH QSHIFT [facility] Stop: 11/14/23 21:59 Last Admin: 11/15/22 05:46 Dose: 1,000 unit Levofloxacin (Levaquin) 750 mg in 150 mls @ 100 mls/hr IV Q24H [facility] Last Admin: 11/14/22 21:45 Dose: 100 mls/hr Clindamycin Phosphate (Cleocin) 600 mg in 50 mls @ 100 mls/hr IV Q8H [facility] Last Admin: 11/15/22 02:46 Dose: 100 mls/hr Fentanyl (Fentanyl 1,000 Mcg/100 Ml D5w) 1,000 mcg in 100 mls @ 2.5 mls/hr IV .Q24H [facility]; Protocol Last Admin: 11/15/22 07:59 Dose: 200 mcg/hr, 20 mls/hr Propofol (Diprivan) 1,000 mg in 100 mls @ 12.6 mls/hr IV .Q7H57M [facility]; Protocol Stop: 11/07/23 07:59 Last Admin: 11/15/22 06:38 Dose: 35 mcg/kg/min, 22.05 mls/hr Midazolam HCl (Versed) 100 mg in 100 mls @ 1 mls/hr IV .Q24H [facility]; Protocol Stop: 05/08/23 10:59 Last Admin: 11/14/22 21:46 Dose: Not Given Lidocaine HCl (Lidocaine 1% Pf 5 Ml Inj.Zara) 10 ml INFILTRATN ONCE PRN PRN Reason: Pain Lisinopril (Lisinopril 20 Mg Tablet) 20 mg PO DAILY@0600 [facility] Stop: 11/06/23 08:59 Last Admin: [...] 40 Mg Vial) 40 mg IV-PUSH DAILY [facility] Stop: 11/08/23 08:59 Last Admin: 11/15/22 08:10 [...] days. On admission respiratory PCR panel at [place] without targeted pathogen but parainfluenza 3 virus [...] pathogenic grows. Documented By: Sanjay Holt MD 11/15/22933 Signed By: <Electronically signed by MD Sanjay Holt> 11/15/2237 [facility] Work Phone: 1(372) 616-751105-08-2023 [facility]05-08-2023 [facility]05-08-2023 Progress note Author Shant Villegas [facility] November 14, 2022 12:52pm Note Date/Time November 14, 2022 12:52p m [facility] [address] [place] [address] Hospitalist Progress Note Signed Patient: Lori Anton MR#: [id number] : 1965 Acct:[id number] Age/Sex: 57 / M Adm Date: 3 Loc: Room: [address] [place] [address] Type: ADM IN Attending Dr: Shant Villegas MD Copies to: ~ Date of Service: 11/14/2022 Subjective Subjective Narrative: On examination patient remains intubated and sedated. Currently PEEP of 10 qfco719% FiO2. Plan for bronchoscopy later today by pulmonary service. He is also being followed by ID. Currently on Versed, fentanyl and propofol for sedation. No growth on blood cultures so far. With initial sputum culture growing Candidaonly. Assessment And Plan 57M with PMH of HTN, DJD, Tobacco abuse, Depression who p/w ever, cough, and right-sided chest pain to the [facility] ED and Transferred for the evaluation and treatment of Bacterial pneumonia Bacterial pneumonia/Parainfluenza Infection Per chest CTA report done at [facility], there is evidence of 2.6 cm [...] Insuln.Pen SUBCUT 11/08/23 11:59 Not Given Q6HR [facility] Protocol Lidocaine HCl 10 ml 11/09/22 13:55 Lidocaine 1% Pf 5 Ml Inj.Zara INFILTRATN ONCE PRN Pain Lisinopril 20 mg 11/07/22 06:00 11/08/22 07:00 Lisinopril 20 Mg Tablet PO 11/06/23 08:59 20 mg DAILY@0600 [facility] Administration Magnesium Hydroxide 30 ml [...] <Electronically signed by Shant Villegas MD> 11/14/22 1988 [facility] Work Phone: 1([phone] 422-329405-08-2023 Progress note Author Reginald Arroyo [facility] November 14, 2022 12:46pm Note Date/Time November 14, 2022 8:51am [facility] [address] [place] [address] Pulmonology Progress Note Signed Patient: Lori Anton MR#: [id number] : 1965 Acct:[id number] Age/Sex: 57 / M Adm Date: 3 Loc: Room: 7A4205-7 Type: ADM IN Attending Dr: Shant Villegas [...] cultures. Documented By: Reginald Arroyo MD 3 0821 Signed By: <Electronically signed by MD Reginald Arroyo> 11/14/22 124 [facility] Work Phone: 1(396) [phone] Progress note Author Sanjay Holt [facility] November 14, 2022 8:59am Note Date/Time November 14, 2022 8:59am [facility] [address] [place] [address] Infect. Disease Progress Note Signed Patient: Lori Anton MR#: [id number] : 1965 Acct:[id number] Age/Sex: 57 / M Adm Date: 3 Loc: Room: [address] [place] [address] Type: ADM IN Attending Dr: Rubi Ramos [...] Puff/18 Gm Inhaler) 6 puff VENT Q6HR [facility] Stop: 11/07/23 11:59 Last Admin: 11/14/22 05:19 Dose: 6 puff Albuterol/Ipratropium (Ipratropium/Albuterol 0.5-3 Mg 3 Ml Ampul.Neb) 3 ml INHALATION QID.RESP [facility] Stop: 11/05/23 07:59 Last Admin: 11/07/22 09:05 Dose: Not Given Amlodipine Besylate (Amlodipine 10 Mg Tablet) 10 mg PO DAILY@0600 [facility] Stop: 11/05/23 08:59 Last Admin: 11/08/22 07:00 Dose: 10 mg Budesonide (Budesonide 0.5 Mg/2 Ml Ampul.Neb) 0.5 mg INHALATION BID [facility] Stop: 11/05/23 11:39 Last Admin: 11/06/22 20:43 Dose: 0.5 mg Bumetanide (Bumetanide 1 Mg/4 Ml Vial) 1 mg IV-PUSH BID@0800,1600 [facility] Stop: 11/14/22 16:01 Last Admin: 11/13/22 16:15 Dose: 1 mg Buprenorphine HCl (Buprenorphine Hcl 2 Mg Tab.Subl) 2 mg SUBLINGUAL BID@0600,1800 [facility] Stop: 05/06/23 05:59 Last Admin: 11/07/22 06:38 Dose: 2 mg Carvedilol (Carvedilol 12.5 Mg Tablet) 12.5 mg PO BID@0600,1800 [facility] Stop: 11/06/23 20:59 Last Admin: 11/08/22 07:00 Dose: 12.5 mg Chlorhexidine Gluconate (Chlorhexidine Gluconate 0.12% 15 Ml Udc) 15 ml MUCOUS MEM BID [facility] Stop: 11/07/23 09:09 Last Admin: 11/13/22 22:31 Dose: 15 ml Docusate Sodium (Docusate Liquid 100 Mg/10 Ml Udc) 100 mg OG-TUBE BID [facility] Stop: 11/07/23 08:59 Last Admin: 11/13/22 22:31 Dose: 100 mg Enoxaparin Sodium (Enoxaparin 40 Mg/0.4 Ml Syringe) 40 mg SUBCUT DAILY@1000 [facility] Stop: 11/06/23 09:59 Last Admin: 11/13/22 09:16 Dose: 40 mg Fluoxetine HCl (Fluoxetine Soln 20 Mg/5 Ml) 40 mg PO HS [facility] Stop: 11/07/23 21:59 Last Admin: 11/13/22 22:32 Dose: 40 mg Fluoxetine HCl (Fluoxetine Soln 20 Mg/5 Ml) 20 mg PO DAILY@0600 [facility] Stop: 11/08/23 05:59 Last Admin: 11/14/22 06:31 Dose: 20 mg Guaifenesin (Guaifenesin 600 Mg Tab.Er.12h) 1,200 mg PO BID [facility] Stop: 11/06/23 12:54 Last Admin: 11/06/22 20:51 Dose: 1,200 mg Levofloxacin (Levaquin) 750 mg in 150 mls @ 100 mls/hr IV Q24H [facility] Last Admin: 11/13/22 22:31 Dose: 100 mls/hr Clindamycin Phosphate (Cleocin) 600 mg in 50 mls @ 100 mls/hr IV Q8H [facility] Last Admin: 11/14/22 01:20 Dose: 100 mls/hr Fentanyl (Fentanyl 1,000 Mcg/100 Ml D5w) 1,000 mcg in 100 mls @ 2.5 mls/hr IV .Q24H [facility]; Protocol Last Admin: 11/14/22 04:30 Dose: 200 mcg/hr, 20 mls/hr Propofol (Diprivan) 1,000 mg in 100 mls @ 12.6 mls/hr IV .Q7H57M [facility]; Protocol Stop: 11/07/23 07:59 Last Admin: 11/14/22 06:30 Dose: 50 mcg/kg/min, 31.5 mls/hr Midazolam HCl (Versed) 100 mg in 100 mls @ 1 mls/hr IV .Q24H [facility]; Protocol Stop: 05/08/23 10:59 Last Admin: 11/13/22 22:31 Dose: Not Given Insulin Aspart (Insulin Aspart 300 Units/3 Ml Insuln.Pen) 0 units SUBCUT Q6HR [facility]; Protocol Stop: 11/08/23 11:59 Last Admin: 11/14/22 06:31 Dose: Not Given Lidocaine HCl (Lidocaine 1% Pf 5 Ml Inj.Zara) 10 ml INFILTRATN ONCE PRN PRN Reason: Pain Lisinopril (Lisinopril 20 Mg Tablet) 20 mg PO DAILY@0600 [facility] Stop: 11/06/23 08:59 Last Admin: [...] 40 Mg Vial) 40 mg IV-PUSH DAILY [facility] Stop: 11/08/23 08:59 Last Admin: 11/13/22 09:16 Dose: 40 mg Potassium Chloride (Potassium Chloride Er 20 Meq Tab.Er.Prt) 40 meq PO DAILY PRN PRN Reason: Hypokalemia Stop: 11/05/23 06:40 Last Admin: 11/05/22 08:43 Dose: 40 meq Sennosides (Sennosides Syrup 8.8 Mg/5 Ml Udc) 8.8 mg PO BID [facility] Stop: 11/07/23 08:59 Last Admin: 11/13/22 22:31 Dose: 8.8 mg Sodium Chloride (Sodium Chloride 0.9 % 10 Ml Syringe) 0 ml IV-PUSH QSHIFT [facility] Stop: 11/05/23 05:59 Last Admin: 11/14/22 06:31 Dose: 10 ml Sodium Chloride (Sodium Chloride 0.9 % 10 Ml Syringe) 10 ml IV-PUSH PRN PRN PRN Reason: Flush Stop: 11/07/23 08:37 Sodium Chloride (Sodium Chloride 0.9 % 10 Ml Vial.Pf) 10 ml INJECTION DAILY [facility] Stop: 11/08/23 08:59 Last Admin: [...] 3days. On admission respiratory PCR panel at [place] without targeted pathogen but parainfluenza 3 virus [...] signed by MD Sanjay Holt> 11/14/22 0859 [facility] Work Phone: [phone] 246-407405-07-2023 Progress note Author Rubi Ramos [facility] November 13, 2022 5:32pm Note Date/Time November 13, 2022 2:04pm [facility] [address] [place] [address] Hospitalist Progress Note Signed Patient: Lori Anton MR#: [id number] : 1965 Acct:[id number] Age/Sex: 57 / M Adm Date: 3 Loc: Room: [address] [place] [address] Type: ADM IN Attending Dr: Rubi Ramos MD Copies to: ~ Date of Service: 11/13/2022 Subjective Subjective Narrative: Assessment And Plan 57M with PMH of HTN, DJD, Tobacco abuse, Depression who p/w ever, cough, and right-sided chest pain to the [facility] ED and Transferred for the evaluation and treatment of Bacterial pneumonia Bacterial pneumonia/Parainfluenza Infection leukocytosis is better , no fever today Per chest CTA report done at [facility], there is evidence of 2.6 cm [...] Mg/4 Ml Vial IV-PUSH 11/14/22 16:01 BID@0800,1600 [facility] Buprenorphine HCl 2 mg 11/07/22 [...] Insuln.Pen SUBCUT 11/08/23 11:59 Not Given Q6HR [facility] Protocol Lidocaine HCl 10 ml [...] Flush Sodium Chloride 10 ml 11/08/22 09:00 05/07/23 09:16 Sodium Chloride 0.9 % 10 Ml [...] <Electronically signed by Rubi Ramos MD> 11/13/22 3460 [facility] Work Phone: [phone] 780-522005-07-2023 Progress note Author Reginald Arroyo [facility] November 13, 2022 10:56am Note Date/Time November 13, 2022 9:03am [facility] [address] [place] [address] Pulmonology Progress Note Signed Patient: Lori Anton MR#: [id number] : 1965 Acct:[id number] Age/Sex: 57 / M Adm Date: 3 Loc: Room: [address] [place] [address] Type: ADM IN Attending Dr: Rubi Ramos [...] <Electronically signed by MD Reginald Arroyo> 11/13/22 [facility]5 [facility] Work Phone: [phone] Progress note Author Rubi Ramos [facility] November 12, 2022 6:19pm Note Date/Time November 12, 2022 4:48pm [facility] [address] [place] [address] Hospitalist Progress Note Signed Patient: Lori Anton MR#: [id number] : 1965 Acct:[id number] Age/Sex: 57 / M Adm Date: 3 Loc: Room: [address] [place] [address] Type: ADM IN Attending Dr: Rubi Ramos MD Copies to: ~ Date of Service: 11/12/2022 Subjective Subjective Narrative: Assessment And Plan 57M with PMH of HTN, DJD, Tobacco abuse, Depression who p/w ever, cough, and right-sided chest pain to the [facility] ED and Transferred for the evaluation and treatment of Bacterial pneumonia Bacterial pneumonia/Parainfluenza Infection still have leukocytosis (he is on steroids) , no fever today Per chest CTA report done at [facility], there is evidence of 2.6 cm [...] Insuln.Pen SUBCUT 11/08/23 11:59 Not Given Q6HR [facility] Protocol Lidocaine HCl 10 ml [...] <Electronically signed by Rubi Ramos MD> 11/12/22 0951 [facility] Work Phone: [phone] Progress note Author Reginald Arroyo [facility] November 12, 2022 2:57pm Note Date/Time November 12, 2022 8:07am [facility] [address] [place] [address] Pulmonology Progress Note Signed Patient: Lori Anton MR#: [id number] : 1965 Acct:[id number] Age/Sex: 57 / M Adm Date: 3 Loc: Room: [address] [place] [address] Type: ADM IN Attending Dr: Rubi Ramos [...] <Electronically signed by MD Reginald Arroyo> 11/12/22 0374 [facility] Work Phone: [phone] Progress note Author Rubi Ramos [facility] November 12, 2022 1:03am Note Date/Time November 11, 2022 5:50pm [facility] [address] [place] [address] Hospitalist Progress Note Signed Patient: Lori Anton MR#: [id number] : 1965 Acct:[id number] Age/Sex: 57 / M Adm Date: 3 Loc: Room: [address] [place] [address] Type: ADM IN Attending Dr: Rubi Ramos MD Copies to: ~ Date of Service: 11/11/2022 Subjective Subjective Narrative: Assessment And Plan 57M with PMH of HTN, DJD, Tobacco abuse, Depression who p/w ever, cough, and right-sided chest pain to the [facility] ED and Transferred for the evaluation and treatment of Bacterial pneumonia Bacterial pneumonia/Parainfluenza Infection still have leukocytosis (he is on steroids) , borderline fever at night Per chest CTA report done at [facility], there is evidence of 2.6 cm [...] 11/11/22 17:00 11/11/22 17:00 11/11/22 17:00 11/11/22 17:11/07/22 00:00 FiO2 60 11/11/22 17:00 Narrative: GENERAL: [...] Insuln.Pen SUBCUT 11/08/23 11:59 1 units Q6HR [facility] Administration Protocol Lidocaine HCl 10 ml 11/09/22 13:55 Lidocaine 1% Pf 5 Ml Inj.Zara INFILTRATN ONCE PRN Pain Lisinopril 20 mg 11/07/22 06:00 11/08/22 07:00 Lisinopril 20 Mg Tablet PO 11/06/23 08:59 20 mg DAILY@0600 [facility] Administration Magnesium Hydroxide 30 ml 11/07/22 07:45 Magnesium Hydroxide Susp 30 Ml Udc PO 11/07/23 07:44 DAILY PRN Constipation Methylprednisolone Sodium Succinate 40 mg 11/10/22 09:00 11/11/22 08:53 Methylprednisolone Sod Succ/Pf 40 Mg/Ml (1ml) Vial IV-PUSH 11/10/23 08:59 40 mg DAILY [facility] Administration Metoprolol Tartrate 5 mg 11/07/22 05:11 [...] . Documented By: Rubi Ramos MD 11/11/22 8345 Signed By: <Electronically signed by Rubi Ramos MD> 11/12/22 010 [facility] Work Phone: [phone] Progress note Author Reginald Arroyo [facility] November 11, 2022 2:52pm Note Date/Time November 11, 2022 2:42pm [facility] [address] [place] [address] Pulmonology Progress Note Signed Patient: Lori Anton MR#: [id number] : 1965 Acct:[id number] Age/Sex: 57 / M Adm Date: 3 Loc: Room: [address] [place] [address] Type: ADM IN Attending Dr: Rubi Ramos [...] <Electronically signed by MD Reginald Arroyo> 11/11/22 9501 [facility] Work Phone: [phone] Progress note Author Sanjay Holt [facility] November 11, 2022 11:18am Note Date/Time November 11, 2022 11:18a m [facility] [address] [place] [address] Infect. Disease Progress Note Signed Patient: Lori Anton MR#: [id number] : 1965 Acct:[id number] Age/Sex: 57 / M Adm Date: 3 Loc: Room: [address] [place] [address] Type: ADM IN Attending Dr: Rubi Ramos [...] 96 Mechanical Ventilation 80 11/10/22 18:00 80 05/04/23 17:00 75 24 110/67 95 Mechanical Ventilation [...] ml @ 100 mls/hr IV Q8H [facility] Rx#:[id number] fentaNYL 1,000 mcg-*D5W* 1,000 100 / 400 200 / 200 mcg In 100 ml @ 25 MCG/HR 2.5 mls/hr IV .Q24H [facility] Rx#: [id number] propofoL 1,000 mg In 100 ml @ 200 / 600 200 / 300 100 / 300 20 MCG/KG/MIN 12.6 mls/hr IV . Q7H57M [facility] Rx#:[id number] Tube Feeding 480 / 1440 480 / [...] Appearance Clear Urine pH 7.5 Ur Specific [place] 1.016 Urine Protein Negative Urine Glucose (UA) [...] Puff/18 Gm Inhaler) 6 puff VENT Q6HR [facility] Stop: 11/07/23 11:59 Last Admin: 11/11/22 05:23 Dose: 6 puff Albuterol/Ipratropium (Ipratropium/Albuterol 0.5-3 Mg 3 Ml Ampul.Neb) 3 ml INHALATION QID.RESP [facility] Stop: 11/05/23 07:59 Last Admin: 11/07/22 09:05 Dose: Not Given Amlodipine Besylate (Amlodipine 10 Mg Tablet) 10 mg PO DAILY@0600 [facility] Stop: 11/05/23 08:59 Last Admin: 11/08/22 07:00 Dose: 10 mg Budesonide (Budesonide 0.5 Mg/2 Ml Ampul.Neb) 0.5 mg INHALATION BID [facility] Stop: 11/05/23 11:39 Last Admin: 11/06/22 20:43 Dose: 0.5 mg Buprenorphine HCl (Buprenorphine Hcl 2 Mg Tab.Subl) 2 mg SUBLINGUAL BID@0600,1800 [facility] Stop: 05/06/23 05:59 Last Admin: 11/07/22 06:38 Dose: 2 mg Carvedilol (Carvedilol 12.5 Mg Tablet) 12.5 mg PO BID@0600,1800 [facility] Stop: 11/06/23 20:59 Last Admin: 11/08/22 07:00 Dose: 12.5 mg Chlorhexidine Gluconate (Chlorhexidine Gluconate 0.12% 15 Ml Udc) 15 ml MUCOUS MEM BID [facility] Stop: 11/07/23 09:09 Last Admin: 11/11/22 08:53 Dose: 15 ml Docusate Sodium (Docusate Liquid 100 Mg/10 Ml Udc) 100 mg OG-TUBE BID [facility] Stop: 11/07/23 08:59 Last Admin: 11/11/22 08:53 Dose: 100 mg Enoxaparin Sodium (Enoxaparin 40 Mg/0.4 Ml Syringe) 40 mg SUBCUT DAILY@1000 [facility] Stop: 11/06/23 09:59 Last Admin: 11/11/22 11:08 Dose: 40 mg Fluoxetine HCl (Fluoxetine Soln 20 Mg/5 Ml) 40 mg PO HS [facility] Stop: 11/07/23 21:59 Last Admin: 11/10/22 21:53 Dose: 40 mg Fluoxetine HCl (Fluoxetine Soln 20 Mg/5 Ml) 20 mg PO DAILY@0600 [facility] Stop: 11/08/23 05:59 Last Admin: 11/11/22 06:16 Dose: 20 mg Guaifenesin (Guaifenesin 600 Mg Tab.Er.12h) 1,200 mg PO BID [facility] Stop: 11/06/23 12:54 Last Admin: 11/06/22 20:51 Dose: 1,200 mg Levofloxacin (Levaquin) 750 mg in 150 mls @ 100 mls/hr IV Q24H [facility] Last Admin: 11/10/22 21:53 Dose: 100 mls/hr Clindamycin Phosphate (Cleocin) 600 mg in 50 mls @ 100 mls/hr IV Q8H [facility] Last Admin: 11/11/22 11:08 Dose: 100 mls/hr Fentanyl (Fentanyl 1,000 Mcg/100 Ml D5w) 1,000 mcg in 100 mls @ 2.5 mls/hr IV .Q24H [facility]; Protocol Last Admin: 11/11/22 07:45 Dose: 200 mcg/hr, 20 mls/hr Propofol (Diprivan) 1,000 mg in 100 mls @ 12.6 mls/hr IV .Q7H57M [facility]; Protocol Stop: 11/07/23 07:59 Last Admin: 11/11/22 08:52 Dose: 50 mcg/kg/min, 31.5 mls/hr Sodium Chloride (0.9% Sodium Chloride 1,000 Ml) 1,000 mls @ 75 mls/hr IV .[id number] [facility] Stop: 11/07/23 09:59 Last Admin: 11/10/22 23:51 Dose: Not Given Midazolam HCl (Versed) 100 mg in 100 mls @ 1 mls/hr IV .Q24H [facility]; Protocol Stop: 05/08/23 10:59 Last Admin: 11/11/22 11:08 Dose: 6 mg/hr, 6 mls/hr Insulin Aspart (Insulin Aspart 300 Units/3 Ml Insuln.Pen) 0 units SUBCUT Q6HR [facility]; Protocol Stop: 11/08/23 11:59 Last [...] 20 Mg Tablet) 20 mg PO DAILY@0600 [facility] Stop: 11/06/23 08:59 Last Admin: 11/08/22 07:00 Dose: 20 mg Magnesium Hydroxide (Magnesium Hydroxide Susp 30 Ml Udc) 30 ml PO DAILY PRN PRN Reason: Constipation Stop: 11/07/23 07:44 Methylprednisolone Sodium Succinate (Methylprednisolone Sod Succ/Pf 40 Mg/Ml (1ml) Vial) 40 mg IV-PUSH DAILY [facility] Stop: 11/10/23 08:59 Last Admin: [...] 40 Mg Vial) 40 mg IV-PUSH DAILY [facility] Stop: 11/08/23 08:59 Last Admin: 11/11/22 08:53 Dose: 40 mg Potassium Chloride (Potassium Chloride Er 20 Meq Tab.Er.Prt) 40 meq PO DAILY PRN PRN Reason: Hypokalemia Stop: 11/05/23 06:40 Last Admin: 11/05/22 08:43 Dose: 40 meq Sennosides (Sennosides Syrup 8.8 Mg/5 Ml Udc) 8.8 mg PO BID [facility] Stop: 11/07/23 08:59 Last Admin: 11/11/22 08:53 Dose: 8.8 mg Sodium Chloride (Sodium Chloride 0.9 % 10 Ml Syringe) 0 ml IV-PUSH QSHIFT [facility] Stop: 11/05/23 05:59 Last Admin: 11/11/22 06:17 Dose: 30 ml Sodium Chloride (Sodium Chloride 0.9 % 10 Ml Syringe) 10 ml IV-PUSH PRN PRN PRN Reason: Flush Stop: 11/07/23 08:37 Sodium Chloride (Sodium Chloride 0.9 % 10 Ml Vial.Pf) 10 ml INJECTION DAILY [facility] Stop: 11/08/23 08:59 Last Admin: [...] cultures remain negative. Respiratory PCR panel at [place] without targeted pathogen but parainfluenza 3 virus [...] signed by MD Sanjay Holt> 11/11/22 1118 [facility] Work Phone: [phone] Progress note Author Rubi Ramos [facility] November 11, 2022 12:31am Note Date/Time November 10, 2022 6:42pm [facility] [address] [place] [address] Hospitalist Progress Note Signed Patient: Lori Anton MR#: [id number] : 1965 Acct:[id number] Age/Sex: 57 / M Adm Date: 3 Loc: Room: [address] [place] [address] Type: ADM IN Attending Dr: Rubi Ramos MD Copies to: ~ Date of Service: 11/10/2022 Subjective Subjective Narrative: Assessment And Plan 57M with PMH of HTN, DJD, Tobacco abuse, Depression who p/w ever, cough, and right-sided chest pain to the [facility] ED and Transferred for the evaluation and treatment of Bacterial pneumonia Bacterial pneumonia/Parainfluenza Infection Mild fever spike this morning UA was not suggestive for UTI, blood Cx obtained, leukocytosis Per chest CTA report done at [facility], there is evidence of 2.6 cm [...] 1,000 Ml IV 11/07/23 09:59 75 mls/hr .[id number] [facility] Administration Midazolam HCl 100 mg in 100 mls @ 1 mls/hr 11/09/22 11:00 11/10/22 06:34 Versed IV 05/08/23 10:59 6 mg/hr .Q24H [facility] 6 mls/hr Titration Protocol 1 MG/HR Insulin Aspart 0 units 11/08/22 12:00 11/10/22 18:29 Insulin Aspart 300 Units/3 Ml Insuln.Pen SUBCUT 11/08/23 11:59 Not Given Q6HR [facility] Protocol Ketorolac Tromethamine 30 mg 11/06/22 12:52 11/07/22 04:21 Ketorolac Tromethamine 30 Mg/Ml Vial IV-PUSH 11/11/22 12:51 30 mg Q6H PRN Administration Pain Scale 7 - 10 Lidocaine HCl 10 ml 11/09/22 13:55 Lidocaine 1% Pf 5 Ml Inj.Zara INFILTRATN ONCE PRN Pain Lisinopril 20 mg 11/07/22 06:00 11/08/22 07:00 Lisinopril 20 Mg Tablet PO 11/06/23 08:59 20 mg DAILY@0600 [facility] Administration Magnesium Hydroxide 30 ml [...] . Documented By: Rubi Ramos MD 11/10/22 1529 Signed By: <Electronically signed by Rubi Ramos MD> 11/11/22 0031 [facility] Work Phone: 1(730) 874-867505-04-2023 Progress note Author Ismael Huitron [facility] November 10, 2022 2:27pm Note Date/Time November 10, 2022 2:27pm [facility] [address] [place] [address] Pulmonology Progress Note Signed Patient: Lori Anton MR#: [id number] : 1965 Acct:[id number] Age/Sex: 57 / M Adm Date: 3 Loc: Room: [address] [place] [address] Type: ADM IN Attending Dr: Rubi Ramos [...] pneumothorax: Plan: Patient required placement of 32 [place] chest tube to keep up with his [...] continue suctioning to -20 from both 32 [place] chest tubes * CC time 35 minutes Documented By: Ismael Huitron MD 11/10/22 1423 Signed By: <Electronically signed by Ismael Huitron MD> 11/10/22 1428 [facility] Work Phone: 1(645) 634-280205-04-2023 Progress note Author Sanjay Holt [place] [facility] November 10, 2022 9:42am Note Date/Time November 10, 2022 9:38am [facility] [address] [place], [place] [id number] Infect. Disease Progress Note Signed Patient: Lori Anton MR#: [id number] : 1965 Acct:[id number] Age/Sex: 57 / M Adm Date: 3 Loc: Room: [address] [place] [address] Type: ADM IN Attending Dr: Rubi Ramos [...] Puff/18 Gm Inhaler) 6 puff VENT Q6HR [facility] Stop: 11/07/23 11:59 Last Admin: 11/10/22 06:30 Dose: 6 puff Albuterol/Ipratropium (Ipratropium/Albuterol 0.5-3 Mg 3 Ml Ampul.Neb) 3 ml INHALATION QID.RESP [facility] Stop: 11/05/23 07:59 Last Admin: 11/07/22 09:05 Dose: Not Given Amlodipine Besylate (Amlodipine 10 Mg Tablet) 10 mg PO DAILY@0600 [facility] Stop: 11/05/23 08:59 Last Admin: 11/08/22 07:00 Dose: 10 mg Budesonide (Budesonide 0.5 Mg/2 Ml Ampul.Neb) 0.5 mg INHALATION BID [facility] Stop: 11/05/23 11:39 Last Admin: 11/06/22 20:43 Dose: 0.5 mg Buprenorphine HCl (Buprenorphine Hcl 2 Mg Tab.Subl) 2 mg SUBLINGUAL BID@0600,1800 [facility] Stop: 05/06/23 05:59 Last Admin: 11/07/22 06:38 Dose: 2 mg Carvedilol (Carvedilol 12.5 Mg Tablet) 12.5 mg PO BID@0600,1800 [facility] Stop: 11/06/23 20:59 Last Admin: 11/08/22 07:00 Dose: 12.5 mg Chlorhexidine Gluconate (Chlorhexidine Gluconate 0.12% 15 Ml Udc) 15 ml MUCOUS MEM BID [facility] Stop: 11/07/23 09:09 Last Admin: 11/10/22 08:57 Dose: 15 ml Docusate Sodium (Docusate Liquid 100 Mg/10 Ml Udc) 100 mg OG-TUBE BID [facility] Stop: 11/07/23 08:59 Last Admin: 11/10/22 08:57 Dose: 100 mg Enoxaparin Sodium (Enoxaparin 40 Mg/0.4 Ml Syringe) 40 mg SUBCUT DAILY@1000 [facility] Stop: 11/06/23 09:59 Last Admin: 11/10/22 09:00 Dose: 40 mg Fluoxetine HCl (Fluoxetine Soln 20 Mg/5 Ml) 40 mg PO HS [facility] Stop: 11/07/23 21:59 Last Admin: 11/09/22 21:43 Dose: 40 mg Fluoxetine HCl (Fluoxetine Soln 20 Mg/5 Ml) 20 mg PO DAILY@0600 [facility] Stop: 11/08/23 05:59 Last Admin: 11/10/22 05:48 Dose: 20 mg Guaifenesin (Guaifenesin 600 Mg Tab.Er.12h) 1,200 mg PO BID [facility] Stop: 11/06/23 12:54 Last Admin: 11/06/22 20:51 Dose: 1,200 mg Levofloxacin (Levaquin) 750 mg in 150 mls @ 100 mls/hr IV Q24H [facility] Last Admin: 11/09/22 21:22 Dose: 100 mls/hr Clindamycin Phosphate (Cleocin) 600 mg in 50 mls @ 100 mls/hr IV Q8H [facility] Last Admin: 11/10/22 09:00 Dose: 100 mls/hr Fentanyl (Fentanyl 1,000 Mcg/100 Ml D5w) 1,000 mcg in 100 mls @ 2.5 mls/hr IV .Q24H [facility]; Protocol Last Admin: 11/10/22 08:57 Dose: 200 mcg/hr, 20 mls/hr Propofol (Diprivan) 1,000 mg in 100 mls @ 12.6 mls/hr IV .Q7H57M [facility]; Protocol Stop: 11/07/23 07:59 Last Admin: 11/10/22 07:51 Dose: 50 mcg/kg/min, 31.5 mls/hr Sodium Chloride (0.9% Sodium Chloride 1,000 Ml) 1,000 mls @ 75 mls/hr IV .[id number] [facility] Stop: 11/07/23 09:59 Last Admin: 11/10/22 06:29 Dose: Not Given Midazolam HCl (Versed) 100 mg in 100 mls @ 1 mls/hr IV .Q24H [facility]; Protocol Stop: 05/08/23 10:59 Last Titration: 11/10/22 06:34 Dose: 6 mg/hr, 6 mls/hr Insulin Aspart (Insulin Aspart 300 Units/3 Ml Insuln.Pen) 0 units SUBCUT Q6HR [facility]; Protocol Stop: 11/08/23 11:59 Last [...] 20 Mg Tablet) 20 mg PO DAILY@0600 [facility] Stop: 11/06/23 08:59 Last Admin: 11/08/22 07:00 Dose: 20 mg Magnesium Hydroxide (Magnesium Hydroxide Susp 30 Ml Udc) 30 ml PO DAILY PRN PRN Reason: Constipation Stop: 11/07/23 07:44 Methylprednisolone Sodium Succinate (Methylprednisolone Sod Succ/Pf 40 Mg/Ml (1ml) Vial) 40 mg IV-PUSH DAILY [facility] Stop: 11/10/23 08:59 Last Admin: [...] 40 Mg Vial) 40 mg IV-PUSH DAILY [facility] Stop: 11/08/23 08:59 Last Admin: 11/10/22 08:57 Dose: 40 mg Potassium Chloride (Potassium Chloride Er 20 Meq Tab.Er.Prt) 40 meq PO DAILY PRN PRN Reason: Hypokalemia Stop: 11/05/23 06:40 Last Admin: 11/05/22 08:43 Dose: 40 meq Sennosides (Sennosides Syrup 8.8 Mg/5 Ml Udc) 8.8 mg PO BID [facility] Stop: 11/07/23 08:59 Last Admin: [...] 10 Ml Vial.Pf) 10 ml INJECTION DAILY [facility] Stop: 11/08/23 08:59 Last Admin: [...] cultures remain negative. Respiratory PCR panel at [place] without targeted pathogen but parainfluenza 3 virus targeted here. Legionella urine antigen negative, Legionella antibodies negative. Urine strep antigen negative. HIV negative. Continues on Levaquin and Flagyl. Patient remains on steroids. No fever this morning. Not yet documented. Repeat cultures from blood and urine. Chest x-ray this morning as above. Patient without stools so no diarrhea. Documented By: Sanjay Holt MD 11/10/2236 Signed By: <Electronically signed by MD Sanjay Holt> 11/10/22 0942 [facility] Work Phone: 1([phone] 226-931505-04-2023 Progress note Author Rubi Ramos [facility] November 10, 2022 1:16am Note Date/Time November 09, 2022 7:10pm [facility] [address] [place] [address] Hospitalist Progress Note Signed Patient: Lori Anton MR#: [id number] : 1965 Acct:[id number] Age/Sex: 57 / M Adm Date: 3 Loc: Room: [address] [place] [address] Type: ADM IN Attending Dr: Rubi Ramos MD Copies to: ~ Date of Service: 11/09/2022 Subjective Subjective Narrative: Assessment And Plan 57M with PMH of HTN, DJD, Tobacco abuse, Depression who p/w ever, cough, and right-sided chest pain to the [facility] ED and Transferred for the evaluation and treatment of Bacterial pneumonia/Parainfluenza Infection Afebrile, leukocytosis is resolving , Per chest CTA report done at [facility], there is evidence of 2.6 cm [...] 1,000 Ml IV 11/07/23 09:59 Not Given .[id number] [facility] Midazolam HCl 100 mg in 100 mls @ 1 mls/hr 11/09/22 11:00 11/09/22 17:35 Versed IV 05/08/23 10:59 5 mg/hr .Q24H [facility] 5 mls/hr Titration Protocol 1 MG/HR Insulin Aspart 0 units 11/08/22 12:00 11/09/22 18:31 Insulin Aspart 300 Units/3 Ml Insuln.Pen SUBCUT 11/08/23 11:59 Not Given Q6HR [facility] Protocol Ketorolac Tromethamine 30 mg 11/06/22 12:52 11/07/22 04:21 Ketorolac Tromethamine 30 Mg/Ml Vial IV-PUSH 11/11/22 12:51 30 mg Q6H PRN Administration Pain Scale 7 - 10 Lidocaine HCl 10 ml 11/09/22 13:55 Lidocaine 1% Pf 5 Ml Inj.Zara INFILTRATN ONCE PRN Pain Lisinopril 20 mg 11/07/22 06:00 11/08/22 07:00 Lisinopril 20 Mg Tablet PO 11/06/23 08:59 20 mg DAILY@0600 [facility] Administration Magnesium Hydroxide 30 ml [...] signed by Rubi Ramos MD> 11/10/22 0116 [facility] Work Phone: [phone] Progress note Author Ismael Huitron [facility] November 09, 2022 3:14pm Note Date/Time November 09, 2022 1:23pm [facility] [address] [place] [address] Pulmonology Progress Note Signed Patient: Lori Anton MR#: [id number] : 1965 Acct:[id number] Age/Sex: 57 / M Adm Date: 3 Loc: Room: [address] [place] [address] Type: ADM IN Attending Dr: Rubi Ramos MD Copies to: ~ Date of Service: 11/09/2022 Subjective Subjective Narrative: Patient continued to improve after placement of second chest tube, his air leak has diminished markedly since, chest x-ray continued show complete reexpansion of the lung, I will remove his small pneumothorax catheter from the right midclavicular area and maintain the large 32 [place] chest tube in place with suctioning at [...] pneumothorax: Plan: Patient required placement of 32 Malawian chest tube to keep up with his [...] minutes Documented By: Ismael Huitron MD 11/09/22 0148 Signed By: <Electronically signed by Ismael Huitron MD> 11/09/22 6119 [facility] Work Phone: 1(667) 297-326205-03-2023 [facility] Progress note Author Sanjay Holt [facility] November 09, 2022 9:12am Note Date/Time November 09, 2022 9:08am [facility] [address] [place], [place] [id number] Infect. Disease Progress Note Signed Patient: Lori Anton MR#: [id number] : 1965 Acct:[id number] Age/Sex: 57 / M Adm Date: 3 Loc: Room: [address] [place] [address] Type: ADM IN Attending Dr: Rubi Ramos [...] Puff/18 Gm Inhaler) 6 puff VENT Q6HR [facility] Stop: 11/07/23 11:59 Last Admin: 11/09/22 06:31 Dose: 6 puff Albuterol/Ipratropium (Ipratropium/Albuterol 0.5-3 Mg 3 Ml Ampul.Neb) 3 ml INHALATION QID.RESP [facility] Stop: 11/05/23 07:59 Last Admin: 11/07/22 09:05 Dose: Not Given Amlodipine Besylate (Amlodipine 10 Mg Tablet) 10 mg PO DAILY@0600 [facility] Stop: 11/05/23 08:59 Last Admin: 11/08/22 07:00 Dose: 10 mg Budesonide (Budesonide 0.5 Mg/2 Ml Ampul.Neb) 0.5 mg INHALATION BID [facility] Stop: 11/05/23 11:39 Last Admin: 11/06/22 20:43 Dose: 0.5 mg Buprenorphine HCl (Buprenorphine Hcl 2 Mg Tab.Subl) 2 mg SUBLINGUAL BID@0600,1800 [facility] Stop: 05/06/23 05:59 Last Admin: 11/07/22 06:38 Dose: 2 mg Carvedilol (Carvedilol 12.5 Mg Tablet) 12.5 mg PO BID@0600,1800 [facility] Stop: 11/06/23 20:59 Last Admin: 11/08/22 07:00 Dose: 12.5 mg Chlorhexidine Gluconate (Chlorhexidine Gluconate 0.12% 15 Ml Udc) 15 ml MUCOUS MEM BID [facility] Stop: 11/07/23 09:09 Last Admin: 11/09/22 08:28 Dose: 15 ml Docusate Sodium (Docusate Liquid 100 Mg/10 Ml Udc) 100 mg OG-TUBE BID [facility] Stop: 11/07/23 08:59 Last Admin: 11/09/22 08:28 Dose: 100 mg Enoxaparin Sodium (Enoxaparin 40 Mg/0.4 Ml Syringe) 40 mg SUBCUT DAILY@1000 [facility] Stop: 11/06/23 09:59 Last Admin: 11/08/22 10:14 Dose: 40 mg Fluoxetine HCl (Fluoxetine Soln 20 Mg/5 Ml) 40 mg PO HS [facility] Stop: 11/07/23 21:59 Last Admin: 11/08/22 21:00 Dose: 40 mg Fluoxetine HCl (Fluoxetine Soln 20 Mg/5 Ml) 20 mg PO DAILY@0600 [facility] Stop: 11/08/23 05:59 Last Admin: 11/09/22 05:06 Dose: 20 mg Guaifenesin (Guaifenesin 600 Mg Tab.Er.12h) 1,200 mg PO BID [facility] Stop: 11/06/23 12:54 Last Admin: 11/06/22 20:51 Dose: 1,200 mg Levofloxacin (Levaquin) 750 mg in 150 mls @ 100 mls/hr IV Q24H [facility] Last Infusion: 11/08/22 23:10 Dose: Infused Clindamycin Phosphate (Cleocin) 600 mg in 50 mls @ 100 mls/hr IV Q8H [facility] Last Infusion: 11/09/22 02:31 Dose: Infused Fentanyl (Fentanyl 1,000 Mcg/100 Ml D5w) 1,000 mcg in 100 mls @ 2.5 mls/hr IV .Q24H [facility]; Protocol Last Admin: 11/08/22 21:01 Dose: 100 mcg/hr, 10 mls/hr Propofol (Diprivan) 1,000 mg in 100 mls @ 12.6 mls/hr IV .Q7H57M [facility]; Protocol Stop: 11/07/23 07:59 Last Titration: 11/09/22 05:39 Dose: 40 mcg/kg/min, 25.2 mls/hr Sodium Chloride (0.9% Sodium Chloride 1,000 Ml) 1,000 mls @ 75 mls/hr IV .[id number] [facility] Stop: 11/07/23 09:59 Last Admin: 11/09/22 06:07 Dose: 75 mls/hr Cisatracurium Besylate 200 mg/ (Dextrose) 200 mls @ 12.6 mls/hr IV .[id number] [facility]; Protocol Stop: 11/07/23 10:29 Last Titration: 11/09/22 00:34 Dose: 3 mcg/kg/min, 18.9 mls/hr Insulin Aspart (Insulin Aspart 300 Units/3 Ml Insuln.Pen) 0 units SUBCUT Q6HR [facility]; Protocol Stop: 11/08/23 11:59 Last Admin: 11/09/22 05:26 Dose: Not Given Ketorolac Tromethamine (Ketorolac Tromethamine 30 Mg/Ml Vial) 30 mg IV-PUSH Q6HPRN PRN Reason: Pain Scale 7 - 10 Stop: 11/11/22 12:51 Last Admin: 11/07/22 04:21 Dose: 30 mg Lisinopril (Lisinopril 20 Mg Tablet) 20 mg PO DAILY@0600 [facility] Stop: 11/06/23 08:59 Last Admin: 11/08/22 07:00 Dose: 20 mg Magnesium Hydroxide (Magnesium Hydroxide Susp 30 Ml Udc) 30 ml PO DAILY PRN PRN Reason: Constipation Stop: 11/07/23 07:44 Methylprednisolone Sodium Succinate (Methylprednisolone Sod Succ/Pf 40 Mg/Ml (1ml) Vial) 40 mg IV-PUSH Q8HR [facility] Stop: 11/05/23 13:59 Last Admin: [...] cultures remain negative. Respiratory PCR panel at [place] without targeted pathogen but parainfluenza 3 virus targeted here. Legionella urine antigen negative, Legionella antibodies negative. Urinestrep antigen negative. HIV negative. Continues on Levaquin and Flagyl. Day 5of antibiotics Documented By: Sanjay Holt MD 11/09/22905 Signed By: <Electronically signed by MD Sanjay Holt> 11/09/22911 [facility] Work Phone: 1(416) [phone] Progress note Author Rubi Ramos [facility] November 09, 2022 1:09am Note Date/Time November 08, 2022 7:20pm [facility] [address] [place] [address] Hospitalist Progress Note Signed Patient: Lori Anton MR#: [id number] : 1965 Acct:[id number] Age/Sex: 57 / M Adm Date: 3 Loc: Room: [address] [place] [address] Type: ADM IN Attending Dr: Rubi Ramos [...] 1,000 Ml IV 11/07/23 09:59 Not Given .[id number] [facility] Cisatracurium Besylate 200 mg/ 200 mls @ 12.6 mls/hr 11/07/22 10:30 11/08/22 17:38 Dextrose IV 04/30/24 10:29 3 mcg/kg/min .[id number] [facility] 18.9 mls/hr Titration Protocol 2 MCG/KG/MIN Norepinephrine Bitartrate 8 mg in 250 mls @ 3.75 mls/hr 11/07/22 17:15 11/08/22 17:39 Levophed IV 11/07/23 17:14 Not Given .Q24H [facility] Protocol 2 MCG/MIN Insulin Aspart 0 units 11/08/22 12:00 11/08/22 17:45 Insulin Aspart 300 Units/3 Ml Insuln.Pen SUBCUT 11/08/23 11:59 Not Given Q6HR [facility] Protocol Ketorolac Tromethamine 30 mg [...] By: <Electronically signed by Rubi Ramos MD> 11/09/229 [facility] Work Phone: 1([phone]) 609-514005-02-2023 Progress note Author Ismael Huitron [facility] November 08, 2022 3:23pm Note Date/Time November 08, 2022 3:23pm [facility] [address] [place] [address] Pulmonology Progress Note Signed Patient: Lori Anton MR#: [id number] : 1965 Acct:[id number] Age/Sex: 57 / M Adm Date: 3 Loc: 4C Room: 3V3604-3 Type: ADM IN Attending Dr: Rubi Ramos MD Copies to: ~ Date of Service: 11/08/2022 Subjective Subjective Narrative: Patient has stabilized from the respiratory standpoint overnight but had worsening air leak from his chest tube now continuous air leak is noted this morning, chest x-ray showed worsening right pneumothorax, immediately after seeing that I placed a 32 [place]awian chest tube in addition to the small pneumothorax catheter in place, he had continuous air leak from both, and chest x-ray showed complete reexpansion of the lung after the second chest tube placement. This was accompanied by improving oxygenation he is down to 40% [id number]. 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 Disease Progress Note Signed Patient: Lori Anton MR#: [id number] : 1965 Acct:[id number] Age/Sex: 57 / M Adm Date: 3 Loc: Room: [address] [place] [address] Type: ADM IN Attending Dr: Rubi Ramos [...] ml @ 2 MCG/KG/MIN 12.6 mls/hr IV .[id number] [facility] Rx#:[id number] Clindamycin 600 mg/50 ml-*D5w* 50 / 150 50 / 50 600 mg In 50 ml @ 100 mls/hr IV Q8H [facility] Rx#:[id number] Sodium Chloride 0.9% 1,000 ml 1 1000 / 1000 ,000 ml @ 75 mls/hr IV .[id number] [facility] Rx#:[id number] fentaNYL 1,000 mcg-*D5W* 1,000 100 / 200 mcg In 100 ml @ 25 MCG/HR 2.5 mls/hr IV .Q24H [facility] Rx#: [id number] levoFLOXacin 750MG-*D5W* 750 mg 150 / 150 In 150 ml @ 100 mls/hr IV Q24H [facility] Rx#:[id number] propofoL 1,000 mg In 100 ml @ 200 / 400 100 / 100 20 MCG/KG/MIN 12.6 mls/hr IV . Q7H57M [facility] Rx#:[id number] Tube Feeding 0 / 0 Tube Irrigant 30 / 30 Output: Urine Amount (Catheter) 500 / 675 425 / 425 Urethral (Earl) 500 / 675 425 / 425 Chest Tube Drainage 30 / 90 30 / 30 Right Upper Anterior Chest Other: # Bowel [...] Puff/18 Gm Inhaler) 6 puff VENT Q6HR [facility] Stop: 11/07/23 11:59 Last Admin: 11/08/22 05:35 Dose: 6 puff Albuterol/Ipratropium (Ipratropium/Albuterol 0.5-3 Mg 3 Ml Ampul.Neb) 3 ml INHALATION QID.RESP [facility] Stop: 11/05/23 07:59 Last Admin: 11/07/22 09:05 Dose: Not Given Amlodipine Besylate (Amlodipine 10 Mg Tablet) 10 mg PO DAILY@0600 [facility] Stop: 11/05/23 08:59 Last Admin: 11/08/22 07:00 Dose: 10 mg Budesonide (Budesonide 0.5 Mg/2 Ml Ampul.Neb) 0.5 mg INHALATION BID [facility] Stop: 11/05/23 11:39 Last Admin: 11/06/22 20:43 Dose: 0.5 mg Buprenorphine HCl (Buprenorphine Hcl 2 Mg Tab.Subl) 2 mg SUBLINGUAL BID@0600,1800 [facility] Stop: 05/06/23 05:59 Last Admin: 11/07/22 06:38 Dose: 2 mg Carvedilol (Carvedilol 12.5 Mg Tablet) 12.5 mg PO BID@0600,1800 [facility] Stop: 11/06/23 20:59 Last Admin: 11/08/22 07:00 Dose: 12.5 mg Chlorhexidine Gluconate (Chlorhexidine Gluconate 0.12% 15 Ml Udc) 15 ml MUCOUS MEM BID [facility] Stop: 11/07/23 09:09 Last Admin: 11/07/22 21:56 Dose: 15 ml Docusate Sodium (Docusate Liquid 100 Mg/10 Ml Udc) 100 mg OG-TUBE BID [facility] Stop: 11/07/23 08:59 Last Admin: 11/07/22 21:56 Dose: 100 mg Enoxaparin Sodium (Enoxaparin 40 Mg/0.4 Ml Syringe) 40 mg SUBCUT DAILY@1000 [facility] Stop: 11/06/23 09:59 Last Admin: 11/07/22 10:37 Dose: 40 mg Fluoxetine HCl (Fluoxetine Soln 20 Mg/5 Ml) 40 mg PO HS [facility] Stop: 11/07/23 21:59 Last Admin: 11/07/22 21:57 Dose: 40 mg Fluoxetine HCl (Fluoxetine Soln 20 Mg/5 Ml) 20 mg PO DAILY@0600 [facility] Stop: 11/08/23 05:59 Last Admin: 11/08/22 07:00 Dose: 20 mg Guaifenesin (Guaifenesin 600 Mg Tab.Er.12h) 1,200 mg PO BID [facility] Stop: 11/06/23 12:54 Last Admin: 11/06/22 20:51 Dose: 1,200 mg Levofloxacin (Levaquin) 750 mg in 150 mls @ 100 mls/hr IV Q24H [facility] Last Infusion: 11/07/22 23:33 Dose: Infused Clindamycin Phosphate (Cleocin) 600 mg in 50 mls @ 100 mls/hr IV Q8H [facility] Last Infusion: 11/08/22 06:00 Dose: Infused Fentanyl (Fentanyl 1,000 Mcg/100 Ml D5w) 1,000 mcg in 100 mls @ 2.5 mls/hr IV .Q24H [facility]; Protocol Last Admin: 11/08/22 02:00 Dose: 100 mcg/hr, 10 mls/hr Propofol (Diprivan) 1,000 mg in 100 mls @ 12.6 mls/hr IV .Q7H57M [facility]; Protocol Stop: 11/07/23 07:59 Last Admin: 11/08/22 04:01 Dose: 35 mcg/kg/min, 22.05 mls/hr Sodium Chloride (0.9% Sodium Chloride 1,000 Ml) 1,000 mls @ 75 mls/hr IV .[id number] [facility] Stop: 11/07/23 09:59 Last Admin: 11/07/22 23:32 Dose: 75 mls/hr Cisatracurium Besylate 200 mg/ (Dextrose) 200 mls @ 12.6 mls/hr IV .[id number] [facility]; Protocol Stop: 11/07/23 10:29 Last Admin: 11/08/22 06:29 Dose: 2 mcg/kg/min, 12.6 mls/hr Norepinephrine Bitartrate (Levophed) 8 mg in 250 mls @ 3.75 mls/hr IV .Q24H [facility]; Protocol Stop: 11/07/23 17:14 Last Admin: 11/08/22 07:54 Dose: Not Given Ketorolac Tromethamine (Ketorolac Tromethamine 30 Mg/Ml Vial) 30 mg IV-PUSH Q6HPRN PRN Reason: Pain Scale 7 - 10 Stop: 11/11/22 12:51 Last Admin: 11/07/22 04:21 Dose: 30 mg Lisinopril (Lisinopril 20 Mg Tablet) 20 mg PO DAILY@0600 [facility] Stop: 11/06/23 08:59 Last Admin: 11/08/22 07:00 Dose: 20 mg Magnesium Hydroxide (Magnesium Hydroxide Susp 30 Ml Udc) 30 ml PO DAILY PRN PRN Reason: Constipation Stop: 11/07/23 07:44 Methylprednisolone Sodium Succinate (Methylprednisolone Sod Succ/Pf 40 Mg/Ml (1ml) Vial) 40 mg IV-PUSH Q8HR [facility] Stop: 11/05/23 13:59 Last Admin: [...] 40 Mg Vial) 40 mg IV-PUSH DAILY [facility] Stop: 11/08/23 08:59 Potassium Chloride (Potassium Chloride Er 20 Meq Tab.Er.Prt) 40 meq PO DAILY PRN PRN Reason: Hypokalemia Stop: 11/05/23 06:40 Last Admin: 11/05/22 08:43 Dose: 40 meq Sennosides (Sennosides Syrup 8.8 Mg/5 Ml Udc) 8.8 mg PO BID [facility] Stop: 11/07/23 08:59 Last Admin: 11/07/22 21:56 Dose: 8.8 mg Sodium Chloride (Sodium Chloride 0.9 % 10 Ml Syringe) 0 ml IV-PUSH QSHIFT [facility] Stop: 11/05/23 05:59 Last Admin: [...] signed by MD Sanjay Holt> 11/08/22 0852 [facility] Work Phone: 1(576) [phone] Progress note Author Rubi Ramos [facility] November 08, 2022 1:26am Note Date/Time November 07, 2022 4:20pm [facility] [address] [place] [address] Hospitalist Progress Note Signed Patient: Lori Anton MR#: [id number] : 1965 Acct:[id number] Age/Sex: 57 / M Adm Date: 3 Loc: Room: [address] [place] [address] Type: ADM IN Attending Dr: Rubi Ramos [...] 11/07/22 12:00 11/07/22 14:00 11/07/22 14:00 11/07/22 14:11/07/22 14:11/07/22 14:00 11/07/22 00:00 FiO2 100 11/07/22 14:00 [...] 1,000 Ml IV 11/07/23 09:59 75 mls/hr .[id number] [facility] Administration Cisatracurium Besylate 200 mg/ 200 mls @ 12.6 mls/hr 11/07/22 10:30 11/07/22 10:57 Dextrose IV 11/07/23 10:29 1.5 mcg/kg/min .[id number] [facility] 9.45 mls/hr Administration Protocol 2 MCG/KG/MIN [...] 11/06/22 23:06 Tizanidine 4 Mg Tablet PO 04/28/24 06:39 4 mg BID@0900,1400 PRN Administration Muscle [...] signed by Rubi Ramos MD> 11/08/22 0126 [facility] Work Phone: [phone] Progress note Author Ismael Huitron [facility] November 07, 2022 2:05pm Note Date/Time November 07, 2022 1:56pm [facility] [address] [place] [address] Pulmonology Progress Note Signed Patient: Lori Anton MR#: [id number] : 1965 Acct:[id number] Age/Sex: 57 / M Adm Date: 3 Loc: Room: [address] [place] [address] Type: ADM IN Attending Dr: Rubi Ramos MD Copies to: ~ Date of Service: 11/07/2022 Subjective Subjective Narrative: Patient developed progressive respiratory distress overnight associated with right-sided pleuritic pain, due to severe hypoxia and work of breathing, patientwas intubated by nurse cable puller this morning, immediately following that and with [...] signed by Ismael Huitron MD> 11/07/22 1405 [facility] Work Phone: 1(362) 723-816505-01-2023 [facility] History general Narrative - Reported* Type Description Date Medical History htn Medical History arthritis Medical History anxiety [place] [facility] [place] [employer] Other 05-01-2023 Consult note Author Sanjay Holt [facility] November 07, 2022 9:23am Note Date/Time November 07, 2022 9:11am [facility] [address] [place] [address] Infect. Disease Consult Note Signed Patient: Lori Anton MR#: [id number] : 1965 Acct:[id number] Age/Sex: 57 / M Adm Date: 3 Loc: Room: [address] [place] [address] Type: ADM IN Attending Dr: Netta Wiseman MD Copies to: Shaista Corona, HEAT TREAT TECHNICIAN-C MD Netta Montez MD~ HPI Data of Consult Consult date: 11/07/22 Requesting Physician: Netta Wiseman MD Primary Care Provider: Shaista Corona Consult Narrative History of present illness: Mr. Anton is a 57 year old male who is currently intubated and sedated on the ventilator. He had been at [facility] prior to [facility] and was centerspecifically to have a bronchoscopy performed. He has pneumonia that PCR panel from [place] did not yield any targets but respiratory [...] 10 Mg Tablet) 10 mg PO DAILY@0600 [facility] Stop: 11/05/23 08:59 Last Admin: 11/07/22 06:36 Dose: 10 mg Budesonide (Budesonide 0.5 Mg/2 Ml Ampul.Neb) 0.5 mg INHALATION BID [facility] Stop: 11/05/23 11:39 Last Admin: 11/06/22 20:43 Dose: 0.5 mg Buprenorphine HCl (Buprenorphine Hcl 2 Mg Tab.Subl) 2 mg SUBLINGUAL BID@0600,1800 [place] [facility] Stop: 05/06/23 05:59 Last Admin: 11/07/22 06:38 Dose: 2 mg Carvedilol (Carvedilol 12.5 Mg Tablet) 12.5 mg PO BID@0600,1800 [facility] Stop: 11/06/23 20:59 Last Admin: 11/07/22 06:37 Dose: 12.5 mg Docusate Sodium (Docusate Liquid 100 Mg/10 Ml Udc) 100 mg OG-TUBE BID [facility] Stop: 11/07/23 08:59 Enoxaparin Sodium (Enoxaparin 40 Mg/0.4 Ml Syringe) 40 mg SUBCUT DAILY@1000 [facility] Stop: 11/06/23 09:59 Last Admin: 11/06/22 09:09 Dose: 40 mg Fluoxetine HCl (Fluoxetine Soln 20 Mg/5 Ml) 40 mg PO HS [facility] Stop: 11/07/23 21:59 Fluoxetine HCl (Fluoxetine Soln 20 Mg/5 Ml) 20 mg PO DAILY@0600 [facility] Stop: 11/08/23 05:59 Guaifenesin (Guaifenesin 600 Mg Tab.Er.12h) 1,200 mg PO BID [facility] Stop: 11/06/23 12:54 Last Admin: 11/06/22 20:51 Dose: 1,200 mg Levofloxacin (Levaquin) 750 mg in 150 mls @ 100 mls/hr IV Q24H [facility] Last Admin: 11/06/22 21:00 Dose: 100 mls/hr Clindamycin Phosphate (Cleocin) 600 mg in 50 mls @ 100 mls/hr IV Q8H [facility] Last Admin: 11/07/22 02:14 Dose: 100 mls/hr Fentanyl (Fentanyl 1,000 Mcg/100 Ml D5w) 1,000 mcg in 100 mls @ 2.5 mls/hr IV .Q24H [facility]; Protocol Propofol (Diprivan) 1,000 mg in 100 mls @ 12.6 mls/hr IV .Q7H57M [facility]; Protocol Stop: 11/07/23 07:59 Ketorolac Tromethamine (Ketorolac Tromethamine 30 Mg/Ml Vial) 30 mg IV-PUSH Q6HPRN PRN Reason: Pain Scale 7 - 10 Stop: 11/11/22 12:51 Last Admin: 11/07/22 04:21 Dose: 30 mg Lisinopril (Lisinopril 20 Mg Tablet) 20 mg PO DAILY@0600 [facility] Stop: 11/06/23 08:59 Last Admin: 11/07/22 06:37 Dose: 20 mg Magnesium Hydroxide (Magnesium Hydroxide Susp 30 Ml Udc) 30 ml PO DAILY PRN PRN Reason: Constipation Stop: 11/07/23 07:44 Methylprednisolone Sodium Succinate (Methylprednisolone Sod Succ/Pf 40 Mg/Ml (1ml) Vial) 40 mg IV-PUSH Q8HR [facility] Stop: 11/05/23 13:59 Last Admin: [...] 40 Mg Vial) 40 mg IV-PUSH DAILY [facility] Stop: 11/08/23 08:59 Potassium Chloride (Potassium Chloride Er 20 Meq Tab.Er.Prt) 40 meq PO DAILY PRN PRN Reason: Hypokalemia Stop: 11/05/23 06:40 Last Admin: 11/05/22 08:43 Dose: 40 meq Sennosides (Sennosides Syrup 8.8 Mg/5 Ml Udc) 8.8 mg PO BID [facility] Stop: 11/07/23 08:59 Sodium Chloride (Sodium Chloride 0.9 % 10 Ml Syringe) 0 ml IV-PUSH QSHIFT [facility] Stop: 11/05/23 05:59 Last Admin: 11/06/22 14:30 Dose: 10 ml Sodium Chloride (Sodium Chloride 0.9 % 10 Ml Syringe) 10 ml IV-PUSH PRN PRN PRN Reason: Flush Stop: 11/07/23 08:37 Sodium Chloride (Sodium Chloride 0.9 % 10 Ml Vial.Pf) 10 ml INJECTION DAILY [facility] Stop: 11/08/23 08:59 Tizanidine HCl [...] 11/06/22 20:25 11/06/22 18:55 100 11/06/22 16:00 100 11/06/22 16:00 11/06/22 16:00 100 11/06/22 16:01 [...] 50 ml @ 100 mls/hr IV Q8H [facility] Rx#:[id number] Oral 680 / 1480 500 / 500 [...] cultures remain negative. Respiratory PCR panel at [place] without targeted pathogen but parainfluenza 3 virus targeted here. Will check antibodies to Legionella and urine antigen for Legionella and Streptococcus. Documented By: Sanjay Holt MD 11/07/22902 Signed By: <Electronically signed by MD Sanjay Holt> 11/07/22922 [facility] Work Phone: 1(404) 944-417605-01-2023 [facility]04-30-2023 Progress note Author Kaylee Mclaughlin [facility] November 06, 2022 4:09pm Note Date/Time November 06, 2022 4:1 0pm [facility] [address] [place] [address] Pulmonology Progress Note Signed Patient: Lori Anton MR#: [id number] : 1965 Acct:[id number] Age/Sex: 57 / M Adm Date: 3 Loc: Room: [address] [place] [address] Type: ADM IN Attending Dr: Netta Wiseman [...] No deformity. -Skin: No rash. Slightly diaphoretic. 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 [...] as the CT angiogram was done at [facility] and no disc was sent with records. We did call [facility] and requested chest CTA imaging. -Chest [...] Plan: -Per chest CTA report done at [facility], there is evidence of 2.6 cm right hilar lymph node compressing the right lower lobe bronchus leading to right lower lobe atelectasis . - Again, the CTA film is not available for my review at this time, this was requested from [facility]. However this is concerning for primary [...] undiagnosed COPD Plan -Patient was sent from [place] ED to [facility] after hewas told he needed bronchoscopy. [...] <Electronically signed by Kaylee Mclaughlin MD> 11/06/22 1602 [facility] Work Phone: 1(453) 764-192004-30-2023 Progress note Author Netta Wiseman [facility] November 06, 2022 8:49am Note Date/Time November 06, 2022 8:4 9am [facility] [address] [place] [address] Hospitalist Progress Note Signed Patient: Lori Anton MR#: [id number] : 1965 Acct:[id number] Age/Sex: 57 / M Adm Date: 3 Loc: Room: [address] [place] [address] Type: ADM IN Attending Dr: Netta Wiseman [...] signed by Netta Wiseman MD> 11/06/22 0849 [facility] Work Phone: 1([phone] 446-300304-29-2023 Consult note Author Kaylee Mclaughlin [facility] November 05, 2022 12:45pm Note Date/Time November 05, 2022 12: 05pm [facility] [address] [place], [place] [id number] Pulmonology Consult Note Signed Patient: Lori Anton MR#: [id number] : 1965 Acct:[id number] Age/Sex: 57 / M Adm Date: 3 Loc: Room: [address] [place] [address] Type: ADM IN Attending Dr: Netta Wiseman MD Copies to: Shaista Corona, HEAT TREAT TECHNICIAN-C MD Netta Pillai MD~ HPI Date/Time of Consultation: Date of Service: 11/05/2022 Time of Service: 11:45 Consulting Provider: Kaylee Mclaughlin Requesting Provider: Netta Wiseman Reason for Consult: Acute hypoxemic respiratory failure, right lower lobe atelectasis History of Present Illness History of present illness: Mr. 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 tells me he smokes a [...] No recent travel. Chest CT angiogram at [facility] reported negative for PE, showed multifocal [...] No deformity. Skin: No rash. Slightly diaphoretic. RADIOTELEGRAPH OPERATOR SERVICER: Alert and oriented x3, no focal deficits. [...] as the CT angiogram was done at [facility] and no disc was sent with records. We did call [facility] and requested chest CTA imaging. -Start high flow nasal cannula with flow rate 40 L/min and FiO2 60% -Titrate FiO2 as needed for target SPO2> 90% -Potential underlying chronic obstructive of pulmonary disease, treat with nebulized short acting bronchodilators, budesonide, and systemic corticosteroids (2) Hilar lymphadenopathy: Plan: -Per chest CTA report done at [facility], there is evidence of 2.6 cm right hilar lymph node compressing the right lower lobe bronchus leading to right lower lobe atelectasis . - Again, the CTA film is not available for my review at this time, this was requested from [facility]. However this is concerning for primary [...] signed by Kaylee Mclaughlin MD> 11/05/22 1245 [facility] Work Phone: [phone]) 852-637504-29-2023 Progress note Author Netta Wiseman [facility] November 05, 2022 9:09am Note Date/Time November 05, 2022 9:0 9am [facility] [address] [place] [address] Event Note Signed Patient: Lori Anton MR#: [id number] : 1965 Acct:[id number] Age/Sex: 57 / M Adm Date: 3 Loc: Room: [address] [place] [address] Type: ADM IN Attending Dr: Netta Wiseman MD Copies to: EDWAR RiosC Netta Wiseman MD~ Event Date & Type [...] Suspect obstructive pneumonia. CT scan done at [place] did not show any pulmonary embolism. Patient [...] <Electronically signed by Netta Wiseman MD> 11/05/22908 [facility] Work Phone: [phone]) [phone] History and physical note Author Derek Alex [facility] November 05, 2022 6:38am Note Date/Time November 05, 2022 4:0 0am [facility] [address] [place] [address] Hospitalist H&P Signed with Addenda Patient: Lori Anton MR#: [id number] : 1965 Acct:[id number] Age/Sex: 57 / M Adm Date: 3 Loc: Room: [address] [place] [address] Type: ADM IN Attending Dr: Derek Alex MD Copies to: MD Shaista Bustamante, HEAT TREAT TECHNICIAN-C Annabel Boo, SECURITY TEST ENGINEER~ ADDENDUM1 I personally saw this patient on the day of the encounter, reviewed the history,performed the borrego elements of the exam and formulated the plan of care and confirmed the nurse practitioners/residents/merchandising intern written note. Addendum Documented By: Derek Alex MD 11/05/2237 Addendum Signed By: <Electronically signed by Derek Alex MD> 11/05/2237 HPI DATE OF EXAMINATION: 11/05/22 CHIEF COMPLAINT: fever, cough, right sided chest pain HISTORY OF PRESENT ILLNESS: Mr. Anton is a 57-year-old male with a PMH of HTN, arthritis that presented to the [facility] emergency room for fever, cough, and right- sided chest pain. Patient seen and evaluated upon transfer at bedside, at bedside. [facility] hospital work-up with a positive D-dimer [...] the day decided to go to the [facility] emergency room and then hewas transferred [...] unless noted in the HPI or below. [facility] Attestation Statement: The following information was [...] function, [facility] Chronic conditions HTN?monitor, resume home meds once confirmed Nicotine dependence?encourage abstinence, nicotine patch as needed DVT PPx?compression socks, heparin CODE STATUS?full code as discussed with patient and Diet order?regular diet Documented By: Annabel Boo APRN 11/05/22 0359 Signed By: <Electronically signed by MARLO Boo> 11/05/22 0437 <Electronically signed by Derek Alex MD> 11/05/22 0625 [facility] Work Phone: 1(722) 234-635112-29-2022 Evaluation note* Encounter Date Diagnosis Assessment Notes [...] care provider if no improvement of symptoms. [employer] Other Evaluation note* Diagnosis Onset Date Resolution Status Acute hypoxemic respiratory failure acute Atelectasis acute Community acquired pneumonia acute Fever acute Hilar lymphadenopathy acute HTN (hypertension) acute Nicotine dependence acute Parainfluenza acute Tension pneumothorax acute [facility] Work Phone: Evaluation noteNo assessment information available [facility] Work Phone: Evaluation note* Diagnosis Benign [...] use disorder [facility] Diagnosis Benign prostatic hyperplasia with weak [...] urinary stream Tobacco user Tobacco use disorder Bilateral leg edema Edema Bilateral leg edema- Primary Edema Primary hypertension (CMS/HCC) Unspecified essential hypertension Tobacco user Tobacco use disorder On potassium wasting diuretic therapy Needs flu shot Need for prophylactic vaccination and inoculation against influenza Osteoarthritis of left knee, unspecified osteoarthritis type [facility]* Diagnosis Benign prostatic hyperplasia with weak [...] urinary stream Tobacco user Tobacco use disorder Bilateral leg edema- Primary Edema Primary hypertension (CMS/HCC) Unspecified essential hypertension Tobacco user Tobacco use disorder On potassium wasting diuretic therapy Needs flu shot Need for prophylactic vaccination and inoculation against influenza Osteoarthritis of left knee, unspecified osteoarthritis type [facility]* Diagnosis Wellness examination- Primary Opioid abuse, uncomplicated (CMS/HCC) [...] Benign prostatic hyperplasia with weak urinary stream [facility]* Diagnosis Benign prostatic hyperplasia with weak [...] urinary stream Tobacco user Tobacco use disorder Bilateral leg edema- Primary Edema Primary hypertension (CMS/HCC) Unspecified essential hypertension Tobacco user Tobacco use disorder On potassium wasting diuretic therapy Needs flu shot Need for prophylactic vaccination and inoculation against influenza Osteoarthritis of left knee, unspecified osteoarthritis type Bilateral leg edema Edema On potassium wasting diuretic therapy [facility]* Diagnosis Benign prostatic hyperplasia with weak [...] urinary stream Tobacco user Tobacco use disorder Bilateral leg edema- Primary Edema Primary hypertension (CMS/HCC) Unspecified essential hypertension Tobacco user Tobacco use disorder On potassium wasting diuretic therapy Needs flu shot Need for prophylactic vaccination and inoculation against influenza Osteoarthritis of left knee, unspecified osteoarthritis type Anxiety- Primary Anxiety state, unspecified Opioid abuse, uncomplicated (CMS/HCC) Spinal stenosis of lumbosacral region Primary hypertension (CMS/HCC) Unspecified essential hypertension Bilateral chronic knee pain Bilateral leg edema Edema BMI 25.0-25.9,adult On potassium wasting diuretic therapy Tobacco user Tobacco use disorder Essential (primary) hypertension (CMS/HCC) Unspecified essential hypertension Benign prostatic hyperplasia with weak urinary stream [facility] Diagnosis Benign prostatic hyperplasia with weak [...] urinary stream Tobacco user Tobacco use disorder Bilateral leg edema- Primary Edema Primary hypertension (CMS/HCC) Unspecified essential hypertension Tobacco user Tobacco use disorder On potassium wasting diuretic therapy Needs flu shot Need for prophylactic vaccination and inoculation against influenza Osteoarthritis of left knee, unspecified osteoarthritis type Anxiety- Primary Anxiety state, unspecified Opioid abuse, uncomplicated (CMS/HCC) Spinal stenosis of lumbosacral region Primary hypertension (CMS/HCC) Unspecified essential hypertension Bilateral chronic knee pain Bilateral leg edema Edema BMI 25.0-25.9,adult On potassium wasting diuretic therapy Tobacco user Tobacco use disorder Essential (primary) hypertension (CMS/HCC) Unspecified essential hypertension Benign prostatic hyperplasia with weak urinary stream Benign prostatic hyperplasia with weak urinary stream- Primary [facility]* Diagnosis Benign prostatic hyperplasia with weak [...] urinary stream Tobacco user Tobacco use disorder Bilateral leg edema- Primary Edema Primary hypertension (CMS/HCC) Unspecified essential hypertension Tobacco user Tobacco use disorder On potassium wasting diuretic therapy Needs flu shot Need for prophylactic vaccination and inoculation against influenza Osteoarthritis of left knee, unspecified osteoarthritis type Anxiety- Primary Anxiety state, unspecified Opioid abuse, uncomplicated (CMS/HCC) Spinal stenosis of lumbosacral region Primary hypertension (CMS/HCC) Unspecified essential hypertension Bilateral chronic knee pain Bilateral leg edema Edema BMI 25.0-25.9,adult On potassium wasting diuretic therapy Tobacco user Tobacco use disorder Essential (primary) hypertension (CMS/HCC) Unspecified essential hypertension Benign prostatic hyperplasia with weak urinary stream Anxiety Anxiety state, unspecified Anxiety disorder, unspecified Muscle spasms of both lower extremities [facility] Diagnosis Benign prostatic hyperplasia with weak [...] urinary stream Tobacco user Tobacco use disorder Bilateral leg edema- Primary Edema Primary hypertension (CMS/HCC) Unspecified essential hypertension Tobacco user Tobacco use disorder On potassium wasting diuretic therapy Needs flu shot Need for prophylactic vaccination and inoculation against influenza Osteoarthritis of left knee, unspecified osteoarthritis type Anxiety- Primary Anxiety state, unspecified Opioid abuse, uncomplicated (CMS/HCC) Spinal stenosis of lumbosacral region Primary hypertension (CMS/HCC) Unspecified essential hypertension Bilateral chronic knee pain Bilateral leg edema Edema BMI 25.0-25.9,adult On potassium wasting diuretic therapy Tobacco user Tobacco use disorder Essential (primary) hypertension (CMS/HCC) Unspecified essential hypertension Benign prostatic hyperplasia with weak urinary stream Benign prostatic hyperplasia with weak urinary stream [facility] Diagnosis Benign prostatic hyperplasia with weak [...] urinary stream Tobacco user Tobacco use disorder Bilateral leg edema- Primary Edema Primary hypertension (CMS/HCC) Unspecified essential hypertension Tobacco user Tobacco use disorder On potassium wasting diuretic therapy Needs flu shot Need for prophylactic vaccination and inoculation against influenza Osteoarthritis of left knee, unspecified osteoarthritis type Anxiety- Primary Anxiety state, unspecified Opioid abuse, uncomplicated (CMS/HCC) Spinal stenosis of lumbosacral region Primary hypertension (CMS/HCC) Unspecified essential hypertension Bilateral chronic knee pain Bilateral leg edema Edema BMI 25.0-25.9,adult On potassium wasting diuretic therapy Tobacco user Tobacco use disorder Essential (primary) hypertension (CMS/HCC) Unspecified essential hypertension Benign prostatic hyperplasia with weak urinary stream Acute cough- Primary [facility] N[facility]ative - Reported* Type Description Date Medical History htn Medical History arthritis Medical History anxiety [facility] Other History of Present illness Narrative* Shaistadeo Corona, LIDA - 02/29/2024 10:00 AM EDT Images from the original note were not included. Lori Anton is a 58 y.o. male presents with chief complaint of No chief complaint on file. HPI: Here today for wellness appt: Overall is doing well with blood pressure, mental health, still continue with suboxone as well. Primary issue is pain: lumbar, hip and left leg. 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 The current episode started more than 1 year ago. The problem is unchanged. The problem is controlled. Associated symptoms include anxiety. Pertinent negatives include no blurred vision, chest pain, malaise/fatigue, neck pain, palpitations, peripheral edema, PND or shortness of breath. There are no associated agents to hypertension. Risk factors for coronary artery disease include male gender and smoking/tobacco exposure. Past treatments include beta blockers, YADIRA inhibitors and calcium channel blockers. The current treatment provides significant improvement. There are no compliance problems. Anxiety Presents for follow-up visit. Symptoms include depressed mood, excessive worry, irritability and nervous/anxious behavior. Patient reports no chest pain, decreased concentration, dizziness, insomnia,palpitations, shortness of breath or suicidal ideas. Symptoms occur most days. The severity of symptoms is mild. Compliance with medications is 76-100%. SUBJECTIVE: MEDICATIONS: Current Outpatient Medications Medication Instructions [...] =60mgTotal of 3 pills daily to =60mg lisinopril 40 mg, Oral, Daily pramipexole (MIRAPEX) 0.5 mg, Oral, Nightly PRN tamsulosin (FLOMAX) 0.4 mg, Oral, Nightly tiZANidine (ZANAFLEX) 8 mg, Oral, Every 12 hours PRN ALLERGIES: Allergies Allergen Reactions Erythromycin Unknown Penicillins Hives REVIEW OF SYMPTOMS: Review of Systems Constitutional: Positive for irritability. Negative for activity change, appetite change, malaise/fatigue and unexpected weight change. HENT: Negative for ear pain, nosebleeds, sneezing, trouble swallowing and voice change. Eyes: Negative for blurred vision, pain, discharge and visual disturbance. Respiratory: Negative for apnea, chest tightness, shortness of breath and wheezing. Cardiovascular: Negative for chest pain, palpitations, leg swelling and PND. Gastrointestinal: Negative for abdominal distention, blood in stool, constipation and diarrhea. Genitourinary: Negative for decreased urine volume, difficulty urinating, dysuria and hematuria. Musculoskeletal: Positive for arthralgias and back pain. Negative for neck pain. Skin: Negative for color change. Neurological: Negative for dizziness, tremors and seizures. Psychiatric/Behavioral: Negative for agitation, decreased concentration, hallucinations, self-injury and suicidal ideas. The patient is nervous/anxious. The patient does not have insomnia. Hematological: Negative for adenopathy. Does not bruise/bleed [...] coronary arteriosclerosis 08/30/2023 Fatigue 08/30/2023 HTN (hypertension) ([facility]) Left shoulder pain Muscle spasms of both lower extremities 08/30/2023 Opioid abuse ([facility]) 08/30/2023 Shingles Tension pneumothorax 08/30/2023 Tinnitus, bilateral 08/30/2023 Tobacco user 08/30/2023 Past Surgical History: Procedure Laterality Date OTHER SURGICAL HISTORY Fatty Tumor family history includes Heart disease in his mother; Hypertension in his mother; bypass surgeries in his mother. OBJECTIVE: Visit Vitals BP 138/82 (BP Location: Left arm, Patient Position: Sitting, BP Cuff Size: Adult long) Pulse 78 Temp 98.5 F (Temporal) Resp 20 Ht 6' 3 Wt 207 lb 6.4 oz SpO2 98% BMI 25.92 kg/m Smoking Status Every Day BSA 2.23 m Physical Exam Vitals and nursing note reviewed. Constitutional: Appearance: Normal appearance. HENT: Head: Normocephalic. Right Ear: External ear normal. Left Ear: External ear normal. Nose: Nose normal. Mouth/Throat: Mouth: Mucous membranes are moist. Pharynx: Oropharynx is clear. Eyes: Extraocular Movements: Extraocular movements intact. Conjunctiva/sclera: Conjunctivae normal. Neck: Vascular: No carotid bruit. Cardiovascular: Rate and Rhythm: Normal rate and regular rhythm. Pulses: Normal pulses. Heart sounds: Normal heart sounds. Pulmonary: Effort: Pulmonary effort is normal. Breath sounds: Normal breath sounds. Abdominal: General: Bowel sounds are normal. Palpations: Abdomen is soft. Musculoskeletal: Cervical back: Neck supple. Left lower leg: Edema present. Comments: Tenderness left greater trochanter lateral left hip pain with internal/external rotation of hip Skin: General: Skin is warm and dry. Capillary Refill: Capillary refill takes 2 to 3 seconds. Neurological: General: No focal deficit present. Mental Status: He is alert. Psychiatric: Mood and Affect: Mood normal. Behavior: Behavior normal. Thought Content: Thought content normal. Judgment: Judgment normal. ASSESSMENT AND PLAN: No follow-ups on file. Problem List Items Addressed This Visit HTN (hypertension) (CMS/HCC) Stable blood pressure No changes in meds or doses Tobacco user The patient has been advised of the risks of continued smoking: stroke, [place], all forms of cancer, lung disease, and . Options for quitting smoking include: cold turkey, hypnosis, acupuncture, nicotine replacement meds(gum, lozenges, and patches), Buproprion, and Varenicline. At this time pt is encouraged to evaluate their goals for wanting to quit smoking, and reach out toprovider when ready to start this process Opioid abuse, uncomplicated (CMS/HCC) Continue with suboxone BMI 25.0-25.9,adult Chronic left hip pain - Primary Check xray Relevant Orders XR hip left 2 or 3 views Family history of premature CAD Strong family hx of CAD, financial limitations Denies any current cardiac sxs Recommend coronary artery calcium score test Hand out on program and order Wellness examination Reviewed Ht/Wt/BMI Recommend eye exam yearly Recommend dental exams twice a year Balance work/leisure activities Exercises is recommended most days of the week (appropriate as chronic conditions allow) Follow up yearly and prn * Shaista Corona NP - 02/29/2024 9:06 AM EDTAssociated Problem(s): Anxiety No changes in meds Doing well * Shaista Corona NP - 02/29/2024 9:05 AM EDTAssociated Problem(s): HTN (hypertension) ([facility]) Stable blood pressure No changes in meds or doses * Shaista Corona NP - 02/29/2024 9:05 AM EDTAssociated Problem(s): Chronic left hip pain Check xray * Shaista Corona NP - 02/29/2024 9:05 AM EDTAssociated Problem(s): Family history of premature CAD Strong family hx of CAD, financial limitations Denies any current cardiac sxs Recommend coronary artery calcium score test Hand out on program and order * Shaista Corona NP - 02/29/2024 9:03 AM EDTAssociated Problem(s): Tobacco user The patient has been advised of the risks of continued smoking: stroke, [place], all forms of cancer, lung disease, and . Options for quitting smoking include: cold turkey, hypnosis, acupuncture, nicotine replacement meds(gum, lozenges, and patches), Buproprion, and Varenicline. At this time pt is encouraged to evaluate their goals for wanting to quit smoking, and reach out toprovider when ready to start this process * Shaista Corona NP - 02/29/2024 9:03 AM EDTAssociated Problem(s): Wellness examination Reviewed Ht/Wt/BMI Recommend eye exam yearly Recommend dental exams twice a year Balance work/leisure activities Exercises is recommended most days of the week (appropriate as chronic conditions allow) Follow up yearly and prn * Shaista Corona NP - 02/29/2024 6:48 AM EDTAssociated Problem(s): Opioid abuse, uncomplicated ([facility]) Continue with suboxone [facility] Ambulatory Orders* Initiate Home Health Time Frame: 11/21/22, [...] [facility] Discharge instructions Additional Instructions Avoid smoking Push fluids Rest Follow with your PCP Return here if any problems persist or worsen include chest pain, shortness of breath or any other concern[facility]: Summary Purpose Family History Relationship Condition Age at Onset Recorded Date/T sun Not Specified Coronary artery disease Unknown Advance Directives Advance Directive Response Recorded Date/ Time Advance [...] section and content) DATE CREATED AUTHOR 12/19/2018 [facility] DATE CREATED AUTHOR AUTHOR'S ORGANIZ ATION 11/11/2022 [facility] DATE CREATED AUTHOR AUTHOR'S ORGANIZ ATION 10/04/2023 [facility] DATE CREATED AUTHOR AUTHOR'S ORGANIZ ATION 07/23/2024 [facility] EPIC DATE CREATED AUTHOR AUTHOR'S ORGANIZ ATION 07/28/[address] [facility] REASON FOR VISIT (unrecogniz ed section and content) Reason Comments Med Refill Reason Comments Leg Pain Care Teams (unrecognized sec tion and content) [...] Status: Inactive Member Role Status Dates [facility] Primary Care Provider Active Lisha Silva APRN Emergency Provider Active Team Status: Inactive Member Role Status Dates [facility] Primary Care Provider Active Evi Gay APRN [facility] Attending Provider Active Team Status: Inactive Member Role Status Dates [facility] Primary Care Provider Active Sta rt: July 31, 2023 End: July 31, 2023 Ej Garcia PA-C Emergency Provider Active Start: July 31, 2023 End: July 31, 2023 Enterprise Applications Manager Relationship Specialty Start Date End Date Celestino Cooper MD [address] [place] [phone] PCP - General Family Medicine 08/23/23 Shaista Corona NP [address] [place] [phone] Referring Physician Nurse Practitioner 01/25/23 Enterprise Applications Manager Relationship Specialty Start Date End Date Celestino Cooper MD [address] [place] [address] PCP - General Family Medicine 08/23/23 Shaista Corona NP [address] [place] [address] Referring Physician Nurse Practitioner 01/25/23 Enterprise Applications Manager Relationship Specialty Start Date End Date Celestino Cooper MD [address] [place] [address] PCP - General Family Medicine 08/23/23 Shaista Corona NP [address] [place] [address] Referring Physician Nurse Practitioner 01/25/23 Enterprise Applications Manager Relationship Specialty Start Date End Date Celestino Cooper MD [address] [place] [address] PCP - General Family Medicine 08/23/23 Shaista Corona NP [address] [place] [address] Referring Physician Nurse Practitioner 01/25/23 Enterprise Applications Manager Relationship Specialty Start Date End Date Celestino Cooper MD [address] [place] [address] PCP - General Family Medicine 08/23/23 Shaista Corona NP [address] [place] [address] Referring Physician Nurse Practitioner 01/25/23 Enterprise Applications Manager Relationship Specialty Start Date End Date Celestino Cooper MD [address] [place] [address] PCP - General Family Medicine 08/23/23 Shaista Corona NP [address] [place] [address] Referring Physician Nurse Practitioner 01/25/23 Enterprise Applications Manager Relationship Specialty Start Date End Date Celestino Cooper MD [address] [place] [address] PCP - General Family Medicine 08/23/23 Shaista Corona NP [address] [place] [address] Referring Physician Nurse Practitioner 01/25/23 Enterprise Applications Manager Relationship Specialty Start Date End Date Celestino Cooper MD [address] [place] [address] PCP - General Family Medicine 08/23/23 Shaista Corona NP [address] [place] [address] Referring Physician Nurse Practitioner 01/25/23 Enterprise Applications Manager Relationship Specialty Start Date End Date Celestino Cooper MD [address] [place] [address] PCP - General Family Medicine 08/23/23 Shaista Corona NP [address] [place] [address] Referring Physician Nurse Practitioner 01/25/23 Enterprise Applications Manager Relationship Specialty Start Date End Date Celestino Cooper MD [address] [place] [phone] PCP - General Family Medicine 08/23/23 Shaista Corona NP [address] [place] [address] Referring Physician Nurse Practitioner 01/25/23 Enterprise Applications Manager Relationship Specialty Start Date End Date Celestino Cooper MD [address] [place] [address] PCP - General Family Medicine 08/23/23 Shaista Corona NP [address] [place] [address] Referring Physician Nurse Practitioner 01/25/23 Enterprise Applications Manager Relationship Specialty Start Date End Date Celestino Cooper MD [address] [place] [phone] PCP - General Family Medicine 08/23/23 Shaista Corona NP [address] [place] [address] Referring Physician Nurse Practitioner 01/25/23 Enterprise Applications Manager Relationship Specialty Start Date End Date Celestino Cooper MD [address] [place] [address] PCP - General Family Medicine 08/23/23 Shaista Corona NP [address] [place] [address] Referring Physician Nurse Practitioner 01/25/23 Enterprise Applications Manager Relationship Specialty Start Date End Date Celestino Cooper MD [address] [place] [address] PCP - General Family Medicine 08/23/23 Shaista Corona NP [address] [place] [address] Referring Physician Nurse Practitioner 7/19/23 Goals (unrecognized section and content) Goals may [...] BE BASED ON THE PRIMARY CLINICAL RECORDS. [facility] [employer] [facility]. provides no warranty or guarantee of the accuracy or completeness of information in this document.
== END 2024-08-22 07:03 | disposition home or self-care (01) ==
LOC: RAD 07:04
PROVIDERS: PCP Nurse Practitioner; Visit Provider Nurse Practitioner
DX: R05.1 Acute cough (principal)
CPT/HCPCS: 71046

== ENCOUNTER 2024-11-02 09:12 | Outpatient (OUT) | payer BC, SELFPAY ==
[2024-11-02 09:37] LABS: Anion Gap 12.4; Carbon Dioxide 27.4 mmol/L (21.0-32.0); Chloride 105 mmol/L (98-107); Estimated GFR (African America >60 (>=60 mL/min/1.73m^2); Glucose 100 mg/dL (74-106); Potassium 3.8 mmol/L (3.5-5.1); Sodium 141 mmol/L (136-145)
[2024-11-02 09:38] LABS: BUN Creatinine Ratio 16.4; Calcium 8.7 mg/dL (8.5-10.1); Estimated GFR (Non-African Ame >60 (>=60 mL/min/1.73m^2)
== END 2024-11-02 09:13 | disposition home or self-care (01) ==
LOC: LAB 09:13
PROVIDERS: PCP Nurse Practitioner; Visit Provider Nurse Practitioner
DX: R60.0 Localized edema (principal); Z79.899 Other long term (current) drug therapy
CPT/HCPCS: 36415; 80048

== ENCOUNTER 2025-03-13 09:30 | Outpatient (OUT) | payer BC, SELFPAY ==
--- OUTSIDE RECORDS SUMMARY | 2024-05-27 07:30 | XMS_ITS ---
Author Organization [facility] Address [address] [place] [address] Care Team Providers Care Sales Performance Analyst Name Role Phone Thad Li [facility] [phone] REASON FOR VISIT LEFT KNEE PAIN Encounters Encounter Location Date Provider Diagnosis [facility] Office [address] [address] [place] [address] 05/27/2024 Thad Li Plan Of Treatment No Information Progress Notes * LORI GOMEZ MDOB: 7 (59 yo M)Acc No.[id number]:05/27/2024 Patient: Ginna NIETOLORI Provider: Priti Li MD :1965 A ge:58 Y S ex:Male Date:05/27/2024 Address:[address] [place], [place] [id number] Subjective: * Chief Complaints: * 1 . LEFT KNEE PAIN. * Medical History: Objective: * Vitals: Assessment: Plan: * Treatment: Forms: * Images: * Electronic signature of Vic Li MD on 03/13/2025 at 09:33 AM EDT Sign off status: Pending * Provider: Priti Li MD Date: 07/27/2023 Generated for Rachael hodge/Constantino/Sonaliitting on: 0 03/13/2025 09:33 AM EDT
--- OUTSIDE RECORDS SUMMARY | 2024-06-03 06:30 | XMS_ITS ---
Author Organization [facility] Address [address] [place] [address] Care Team Providers Care Supervisor Film Processing Name Role Phone Thad Li [facility] [phone] REASON FOR VISIT LEFT KNEE PAIN Encounters Encounter Location Date Provider Diagnosis [facility] Office [address] [place] [address] 06/03/2024 Thad Li Plan Of Treatment No Information Progress Notes * LORI GOMEZ MDOB: 7 (59 yo M)Acc No.[id number]:06/03/2024 Patient: Ginna NIETOLORI Provider: Priti iL MD :1965 A ge:59 Y S ex:Male Date:06/03/2024 Address:[address] [place], [place] [phone] Subjective: * Chief Complaints: * 1 . LEFT KNEE PAIN. * Medical History: Objective: * Vitals: Assessment: Plan: * Treatment: Forms: * Images: * Electronic signature of Vic Li MD on 03/13/2025 at 09:32 AM EDT Sign off status: Pending * Provider: Priti Li MD Date: 08/03/2023 Generated for Rachael hodge/Constantino/Sonaliitting on: 0 03/13/2025 09:32 AM EDT
--- NOTE | 2025-03-13 | XR_ITS ---
The [address] [address] Patient Name: LORI GOMEZ MRN: [id number] date: 1965 Sex: M Assigned Patient Location: [facility] Current Patient Location: [facility] Accession/Order Number: [id number] Exam Date: 03/13/2025 09:50 Report Date: 03/13/2025 10:24 At the request of: GEOFFREY DOMÍNGUEZ NP Procedure: XR chest 2V PA AND LATERAL CHEST: CLINICAL HISTORY: cough, dyspnea COMPARISON: 08/22/[address] 11/04/2022 A calcified granuloma is again seen at the lower lateral left lung There is no developing consolidation, effusion or pneumothorax. There is still a shallow right costophrenic angle. The cardiac, hilar and mediastinal silhouettes are within normal limits. There is no vascular congestion. There is mild thoracolumbar dextroscoliotic curvature and tiny endplate spurs. XR/XR chest 2V IMPRESSION: NO ACUTE CARDIOPULMONARY ABNORMALITY. Impression dictated by: Lesvia Gutiérrez M.D. 03/13/2025 10:24 AM Dictation Location: [place] [address] Electronically authenticated by: [id number] Y Date: 03/13/2025 10:24
--- OUTSIDE RECORDS SUMMARY | 2025-03-13 09:33 | XMS_ITS | Encounter Summary ---
Author Organization [facility] Address [address] [place] [address] Care Team Providers Care Medical Biller/Coder Name Role Phone Shaista Corona YOUTH PROBATION OFFICER Unavailable [phone] Celestino Cooper MD Primary Care Provider [phone] Shaista Corona NP Unavailable [phone] Encounter Details Date Type Department Care Team (Late st Contact Info) Description 10/31/2023 Clinisync Result Encounter [facility] Department Unsolicited Shaista Corona NP [address] [place] [address] Social History Tobacco Use Types Packs/Day Years Used Date Smoking Tobacco: Every Day Cigarettes Started: 07/10/1999 Alcohol Use Standard Drinks/Week Comments Never 0 (1 standard drink = 0.6 oz pure alcohol) caffine: 3cups of coffee 2-3 drinks of soda Social Connection and Isolat ion Panel [NHANES] Answer Date Recorded In a typical week, how many times do you talk on the phone with family, friends, or neighbors? Once a week 08/29/2023 How often do you get togethe r with friends or relatives? Once a week 08/29/2023 How often do you attend chur ch or confucianism services? More than 4 times per year 08/29/2023 Do you belong to any clubs o r organizations such as congregation groups, unions, fraternal or athletic groups, or school groups? No 08/29/2023 How often do you attend meet ings of the clubs or organizations you belong to? Never 08/29/2023 Are you , , di vorced, , never , or living with a partner? 08/29/2023 AUDIT-C Answer Date Recorded Q1: How often do you have a drink containing alcohol? Never 08/29/2023 Q2: How many drinks containi ng alcohol do you have on a typical day when you are drinking? Patient does not drink Q3: How often do you have si x or more drinks on one occasion? Never 08/29/2023 Overall Financial Resource Strain (CARDIA) Answe r Date Recorded How hard is it for you to pa y for the very basics like food, housing, medical care, and heating? Somewhat hard 08/29/2023 [facility] [place] [facility] - Occupational Stress Questionnaire Answer Date Recorded Do you feel stress - tense, restless, nervous, or anxious, or unable to sleep at night because your mind is troubled all the time - these days? To some extent 08/29/2023 Exercise Vital Sign Answer Date Recorde d On average, how many days pe r week do you engage in moderate to strenuous exercise (like a brisk walk)? 5 days 08/29/2023 On average, how many minutes do you engage in exercise at this level? 150+ min 08/29/2023 Hunger Vital Sign Answer Date Recorded Within the past 12 months, y ou worried that your food would run out before you got the money to buy more. Often true 08/29/19 24 Within the past 12 months, t he food you bought just didn't last and you didn't have money to get more. Often true 08/29/2023 PRAPARE - Transportation Answer Date Re corded In the past 12 months, has l ack of transportation kept you from medical appointments or from getting medications? No 08/11 In the past 12 months, has l ack of transportation kept you from meetings, work, or from getting things needed for daily living? No 08/29/2023 Housing Stability Vital Sign Answer Tl e Recorded In the last 12 months, was t here a time when you were not able to pay the mortgage or rent on time? Yes 08/29/2023 In the last 12 months, how many places have you lived? 1 08/29/2023 In the last 12 months, was t here a time when you did not have a steady place to sleep or slept in a correction (including now)? No 08/29/2023 Sex and Gender Information Value Date Recorded Sex Assigned at Not on file Legal Sex Male 11:16 PM EDT Gender Identity Not on file Sexual Orientation Not on file documented as of this encounter Plan of Treatment Not on file documented as of this encounter Procedures Procedure Name Priority Date/Time Associated Diagnosis Comments XR LUMBAR SPINE MIN 4V 10/31/2023 1:31 PM EDT documented in this encounter Results * XR LUMBAR SPINE MIN 4V (10/31/2023 1:31 PM EDT) Anatomical Region Laterality Modality Other 10/31/2023 1:31 PM EDT Narrative 10/31/2023 1:34 [place] [address] XRay Report Signed Patient: LORI ANTON MR#: [id number] : 1965 Acct:[id number] Age/Sex: 58 / M ADM Date: 10/31/23 Loc: [facility] Attending Dr: Shaista Corona YOUTH PROBATION OFFICER Ordering Physician: Shaista Corona NP Date of Service: 10/31/23 Procedure(s): XR lumbar spine min 4V Accession Number(s): [id number] cc: Shaista Corona NP [facility] [place] [id number] Patient Name: LORI ANTON MRN: [id number] date: 1965 Sex: M Assigned Patient Location: [facility] Current Patient Location: [facility] Accession/Order Number: [id number] Exam Date: 10/31/2023 12:45 Report Date: 10/31/2023 13:31 At the request of: SHAISTA CORONA Procedure: XR lumbar spine min 4V EXAMINATION: XR lumbar spine min 4V HISTORY: left lower leg pain, radicular symptoms lumbar spine COMPARISON: No relevant comparison available. FINDINGS: BONES: Rotatory levocurvature centered at L3. No spondylolisthesis. Moderate spondylosis and moderate to severe facet arthropathy most significant at L5-S1 DISC SPACES: Multilevel disc space narrowing with endplate sclerosis and vacuum disks most significant at L2-L3 and L5-S1 PARASPINOUS: Negative. No paraspinous abnormality is seen. OTHER: Negative. XR/XR lumbar spine min 4V IMPRESSION: Moderate to severe degenerative changes Electronically authenticated by: LORI ROJAS Date: 10/31/2023 13:31 Dictated By: Lori Rojas M.D. Signed By: 10/31/23 1334 DD/ 1331 TD/TT: Water Supply Technician: Procedure Note Radiology, Radiologist, MD - 10/31/2023 [place] [address] XRay Report Signed Patient: LORI ANTON MMR#: [id number] : 1965Acct:[id number] Age/Sex: 58 / MADM Date: 10/31/23 Loc: RAD Attending Dr: Shaista Corona YOUTH PROBATION OFFICER Ordering Physician: Shaista Corona NP Date of Service: 10/31/23 Procedure(s): XR lumbar spine min 4V Accession Number(s): [id number] cc: Shaista Corona NP [facility] [place] [address] Patient Name: LORI ANTON MRN: [facility]:[id number] date: 1965 Sex: M Assigned Patient Location: [facility] Current Patient Location: [facility] Accession/Order Number: [id number] Exam Date: 10/31/2023 12:45 Report Date: 10/31/2023 13:31 At the request of: SHAISTA CORONA Procedure: XR lumbar spine min 4V EXAMINATION: XR lumbar spine min 4V HISTORY: left lower leg pain, radicular symptoms lumbar spine COMPARISON: No relevant comparison available. FINDINGS: BONES: Rotatory levocurvature centered at L3. No spondylolisthesis.Moderate spondylosis and moderate to severe facet arthropathy most significant atL5-S1 DISC SPACES: Multilevel disc space narrowing with endplate sclerosis and vacuum disks most significant at L2-L3 and L5-S1 PARASPINOUS: Negative. No paraspinous abnormality is seen. OTHER: Negative. XR/XR lumbar spine min 4V IMPRESSION: Moderate to severe degenerative changes Electronically authenticated by: LORI ROJAS Date: 10/31/2023 13:31 Dictated By: Lori Rojas M.D. Signed By:10/31/23 1334 DD/ 1331 TD/TT: Water Supply Technician: us Shaista Corona NP [facility] Final Result documented in this encounter Visit Diagnoses Not on filedocumented in this encounter Care Teams Medical Biller/Coder Relationship Specialty Start Date End Date Celestino Cooper MD PCP - General Family Medicine 08/23/23 Shaista Corona NP [address] [place] [address] PCP - [place] [employer] 10/08/24 Shaista Corona NP Referring Physician Nurse Practitioner 01/25/23 documented as of this encounter
--- OUTSIDE RECORDS SUMMARY | 2025-03-13 09:33 | XMS_ITS | Clinical Summary ---
Author Organization [facility] Address [address] [place] [address] Care Team Providers Care Polisher Hand Name Role Phone Shaista Corona NP Unavailable [phone] Celestino Cooper MD Primary Care Provider [phone] Allergies Active Allergy Reactions Criticality Noted Date Comments Erythromycin Unknown 08/23/2023 Penicillins Hives 08/23/2023 Medications Buprenorphine HCl-Naloxone HCl (Suboxone) 8-2 MG SL film dissolve 1/3 to 1/2 FILM under the tongue once daily if needed *MUST LAST 28 DAYS 3 Active pramipexole (Mirapex) 0.5 MG tabletIndications :Muscle spasms of both lower extremities Take 1 tablet (0.5 mg) by mouth as needed at bedtime (RLS) 90 tablet 1 4 Active diclofenac (Voltaren) 50 MG EC tablet Take 50 mg by mouth in the morning and 50 mg in the evening and 50 mg before bedtime. 4 Active furosemide (Lasix) 20 MG tabletIndications :Bilateral leg edema Take 1 tablet (20 mg) by mouth Daily as needed (swelling in legs) If take this pill, take a potassium 30 tablet 1 5 Active tadalafil (Cialis) 5 MG tabletIndications :Benign prostatic hyperplasia with weak urinary stream Take 1 tablet (5 mg) by mouth Daily 30 tablet 2 5 Active albuterol HFA 90 mcg/act inhalerIndication s:Pulmonary infiltrate on chest x-ray Inhale 2 puffs every 6 (six) hours if needed for shortness of breath or wheezing 18 g 5 Active cetirizine (ZyrTEC) 10 MG tabletIndications :Rash Take 1 tablet (10 mg) by mouth Daily for 14 days 14 tablet 5 Active amLODIPine (Norvasc) 10 MG tabletIndications :Primary hypertension,Esse ntial (primary) hypertension Take 1 tablet (10 mg) by mouth Daily 90 tablet 1 5 05/12/20 25 Active FLUoxetine (PROzac) 20 MG capsuleIndication s:Anxiety,Anxiety disorder, unspecified TAKE 3 CAPSULES BY MOUTH ONCE DAILY 270 capsule 1 5 Active lisinopril 40 MG tabletIndications :Primary hypertension Take 1 tablet (40 mg) by mouth Daily 90 tablet 1 5 05/12/20 25 Active tiZANidine (Zanaflex) 4 MG tabletIndications :Muscle spasms of both lower extremities Take 2 tablets (8 mg) by mouth every 12 (twelve) hours if needed for muscle spasms 360 tablet 1 5 05/12/20 25 Active carvedilol (Coreg) 25 MG tabletIndications :Primary hypertension Take 1 tablet (25 mg) by mouth in the morning and 1 tablet (25 mg) before bedtime. 180 tablet 1 5 05/12/20 25 Active Active Problems Problem Noted Date Diagnosed Date Rash 12/12/2024 Cigarette nicotine dependence without complicati on 10/10/2024 Pulmonary infiltrate on chest x-ray 08/22/2024 Assessment & Plan (08/27/2024 8:52 AM EST): Recent cxr 08/22/24, was prescribed atb Started on 08/24/24, finish, fu if not better Acute cough 08/21/2024 Osteoarthritis of knee 07/08/2024 Needs flu shot 05/23/2024 Assessment & Plan (05/23/2024 9:20 AM EST): Declines at this time On potassium wasting diuretic therapy 05/03/2024 Assessment & Plan (07/18/2024 9:43 AM EST): Stopped taking lasix and potassium supplement Will go back to take prn swelling in legs Assessment & Plan (05/23/2024 9:08 AM EST): Potassium is 3.4, BUN/CR stable Will add KCL at 10 Meq daily Recheck labs in 2 weeks Asymptomatic microscopic hematuria 05/03/2024 Bilateral leg edema 05/02/2024 Assessment & Plan (07/18/2024 9:43 AM EST): Stopped taking his lasix and potassium meds Discussed with pt, will have him take prn swelling in legs Assessment & Plan (05/23/2024 9:06 AM EST): Continue w lasix Reviewed labs Will add potassium daily Recheck labs in 2 weeks Assessment & Plan (05/02/2024 5:59 PM EDT): Check labs Start lasix Weight is increased from last visit No acute evidence of DVT as it is bilat Chronic left hip pain 02/29/2024 Assessment & Plan (02/29/2024 9:05 AM EDT): Check xray Wellness examination 02/29/2024 Assessment & Plan (02/29/2024 9:03 AM EDT): Reviewed Ht/Wt/BMI Recommend eye exam yearly Recommend dental exams twice a year Balance work/leisure activities Exercises is recommended most days of the week (appropriate as chronic conditions allow) Follow up yearly and prn Spinal stenosis of lumbosacral region 11/29/2023 Assessment & Plan (07/18/2024 6:29 AM EST): Has seen ortho, was being referred to a spine surgeon to see if surgery is an option Assessment & Plan (11/29/2023 9:17 AM EDT): Reviewed MRI results with pt, as he has called ortho for results no response I have advised him to make an appt and review with ortho to see what next step is Pain and swelling of left lower leg 10/31/2023 Assessment & Plan (10/31/2023 1:05 PM EDT): Negative venous doppler Check xray left knee and tib/fib and lumbar spine HTN (hypertension) 08/30/2023 Assessment & Plan (08/27/2024 6:21 AM EST): Please check blood pressure daily and record DASH diet Limit caffeine Take medication as directed Contact office if chest pain, pressure, dizziness, shortness of breath, swelling legs Recommend slow position changes Current meds: amlodipine, carvedilol, lisinopril Assessment & Plan (07/18/2024 6:30 AM EST): Please check blood pressure daily and record DASH diet Limit caffeine Take medication as directed Contact office if chest pain, pressure, dizziness, shortness of breath, swelling legs Recommend slow position changes Current meds: amlodipine, carvedilol, lisinopril Assessment & Plan (05/23/2024 6:28 AM EST): Please check blood pressure daily and record DASH diet Limit caffeine Take medication as directed Contact office if chest pain, pressure, dizziness, shortness of breath, swelling legs Recommend slow position changes Assessment & Plan (05/02/2024 5:58 PM EDT): Stable today on current meds Check labs Assessment & Plan (02/29/2024 9:05 AM EDT): Stable blood pressure No changes in meds or doses Assessment & Plan (11/29/2023 9:16 AM EDT): Stable blood pressure No changes in meds or doses Fu in 6 months for this Assessment & Plan (08/30/2023 8:42 AM EST): Stable blood pressure No changes in meds or doses Fu in 6 months for this Degenerative joint disease of knee 08/30/2023 Assessment & Plan (05/23/2024 9:23 AM EST): Recommend ice to the knee 3-4 times daily Recommend at least trying to possibly take diclofenac once a day, may still be helping more with inflammation then the pain levels Back pain 08/30/2023 Arthritis of right knee 08/30/2023 Chronic pain 08/30/2023 Cervical pain (neck) 08/30/2023 Muscle spasms of both lower extremities 08/30/19 DDD (degenerative disc disease), lumbar 08/30/19 Assessment & Plan (10/31/2023 1:04 PM EDT): Check xray This could possibly represent a radicular pain pattern Will trial steroids Bilateral lower extremity pain 08/30/2023 Bilateral chronic knee pain 08/30/2023 Assessment & Plan (07/18/2024 11:24 AM EST): Has seen ortho Has script for diclofenac, feels like it doesn't work so stopped it and trialed tylenol for a time which worked and now that isnt working either I have advised to maybe go back to trialing of diclofenac and may need to periodically switch things up Assessment & Plan (08/30/2023 9:02 AM EST): Will refer to ortho for evaluation, Tinnitus, bilateral 08/30/2023 Opioid abuse, uncomplicated 08/30/2023 Assessment & Plan (02/29/2024 6:48 AM EDT): Continue with suboxone Fatigue 08/30/2023 Anxiety 08/30/2023 Assessment & Plan (08/27/2024 8:52 AM EST): Is currently prescribed prozac, which he does take daily Outside stressors: work, of family member Assessment & Plan (07/18/2024 11:25 AM EST): Is currently prescribed prozac, which he does take daily Outside stressors: work, of family member , inability to ejaculate as well Will address ejaculation issue first, and if improved with med change, then consider add on zyprexa or abilify?? Assessment & Plan (02/29/2024 9:06 AM EDT): No changes in meds Doing well Assessment & Plan (11/29/2023 9:17 AM EDT): No changes in meds Doing well Screening for prostate cancer 08/30/2023 Overview (08/30/2023): 02/18/2023 0.18 BMI 25.0-25.9,adult 08/30/2023 Benign prostatic hyperplasia with weak urinary s tream 08/30/2023 Assessment & Plan (08/27/2024 8:52 AM EST): At last appt stopped flomax, ordered cialis Will refer to urology Assessment & Plan (07/18/2024 11:26 AM EST): Did help with urination, could not ejaculate Still taking med, will change Assessment & Plan (05/02/2024 5:58 PM EDT): Did help with urination, could not ejaculate Stopped meds and then swelling started Assessment & Plan (08/30/2023 9:02 AM EST): Normal PSA in 03/01 Took tamsulosin in the past Will restart, as well as check CBC, chem 14 and urine Fu in 6 weeks to see if better Acute pain of right shoulder 08/30/2023 Assessment & Plan (08/30/2023 9:03 AM EST): Is not asking for pain pills Is using NSAIDs as well as OTC pain patches We will also refer to ortho for this Family history of premature CAD 08/30/2023 Assessment & Plan (02/29/2024 9:05 AM EDT): Strong family hx of CAD, financial limitations Denies any current cardiac sxs Recommend coronary artery calcium score test Hand out on program and order Resolved Problems Problem Noted Date Diagnosed Date Resolved Date Hilar lymphadenopathy 08/30/20232023 Tension pneumothorax 08/30/2023 024 Community acquired pneumonia 08/30/2023 08/30/2023 Tobacco user 08/30/2023 10/10/2024 Assessment & Plan (08/27/2024 6:22 AM EST): The patient has been advised of the risks of continued smoking: stroke, MS, all forms of cancer, lung disease, and . Options for quitting smoking include: cold turkey, hypnosis, acupuncture, nicotine replacement meds (gum, lozenges, and patches), Buproprion, and Varenicline. At this time pt is encouraged to evaluate their goals for wanting to quit smoking, and reach out to provider when ready to start this process Assessment & Plan (07/18/2024 6:31 AM EST): The patient has been advised of the risks of continued smoking: stroke, MS, all forms of cancer, lung disease, and . Options for quitting smoking include: cold turkey, hypnosis, acupuncture, nicotine replacement meds (gum, lozenges, and patches), Buproprion, and Varenicline. At this time pt is encouraged to evaluate their goals for wanting to quit smoking, and reach out to provider when ready to start this process Assessment & Plan (05/23/2024 6:28 AM EST): The patient has been advised of the risks of continued smoking: stroke, MS, all forms of cancer, lung disease, and . Options for quitting smoking include: cold turkey, hypnosis, acupuncture, nicotine replacement meds (gum, lozenges, and patches), Buproprion, and Varenicline. At this time pt is encouraged to evaluate their goals for wanting to quit smoking, and reach out to provider when ready to start this process Assessment & Plan (02/29/2024 9:03 AM EDT): The patient has been advised of the risks of continued smoking: stroke, MS, all forms of cancer, lung disease, and . Options for quitting smoking include: cold turkey, hypnosis, acupuncture, nicotine replacement meds (gum, lozenges, and patches), Buproprion, and Varenicline. At this time pt is encouraged to evaluate their goals for wanting to quit smoking, and reach out to provider when ready to start this process Assessment & Plan (11/29/2023 9:16 AM EDT): Not interested in quitting Encounters Date Type Department Care Team Description 02/11/2025 Refill [facility] [address] [place] [address] Shaista Corona NP Primary hypertension ; Essential (primary) hypertension ; Anxiety; Anxiety disorder, unspecified; Muscle spasms of both lower extremities 12/12/2024 Refill [facility] [address] [facility] [place] [address] Shaista Corona NP Rash (Primary Dx) 12/12/2024 Refill [facility] [address] [facility] [place] [address] Shaista Corona NP 12/12/2024 Telephone [facility] [address] [facility] [place] [address] Shaista Corona NP from Last 3 Months Family History Medical History Relation Name Comments Heart disease Mother Hypertension Mother bypass surgeries Mother Relation Name Status Comments Father Mother Alive Social History Tobacco Use Types Packs/Day Years Used Date Smoking Tobacco: Every Day Cigarettes Started: 07/10/1999 Tobacco Cessation:Ready to Q uit: Not Asked; Counseling Given: Not Answered Alcohol Use Standard Drinks/Week Comments Never 0 [...] 08/29/2023 How often do you attend chur or roman catholic services? More than 4 times per year 08/29/2023 Do you belong to any clubs o r organizations such as sabianist groups, unions, fraternal or athletic groups, or [...] medical care, and heating? Somewhat hard 08/29/2023 [facility] of Occupat ional Health - Occupational Stress [...] money to buy more. Often true 08/29/19 Within the past 12 months, t he [...] place to sleep or slept in a fdc (including now)? No 08/29/2023 Sex and Gender Information Value Date Recorded Sex Assigned at Not on file Legal Sex Male 11:16 PM EDT Gender Identity Not on file Sexual Orientation Not on file Last Filed Vital Signs Vital Sign Reading Time Taken Comments Blood Pressure 130/80 08/27/2024 8:25 AM EST Pulse 65 08/27/2024 8:25 AM EST Temperature 37.1 C (98.8 F) 08/27/2024 8:25 AM EST Respiratory Rate 18 08/27/2024 8:25 AM EST Oxygen Saturation 97% 08/27/2024 8:25 AM EST Inhaled Oxygen Concentration - - Weight 98.8 kg (217 lb 12.8 oz) 08/27/2024 8:25 AM EST Height 190.5 cm (6' 3 ) 08/27/2024 8:25 AM EST Body Mass Index 27.22 08/27/2024 8:25 AM EST Plan of Treatment Health Maintenance Due Date Last Done Comments CT Colonography 1967 Colonoscopy 1967 Colorectal Cancer Screening 1967 FIT-DNA 1967 FIT 1967 FOBT 1967 Sigmoidoscopy 1967 Influenza Vaccine (#1) 2025 Insurance BCBS Care Teams Polisher Hand Relationship Specialty Start Date End Date Celestino Cooper MD PCP - General Family Medicine 08/23/23 Shaista Corona NP Referring Physician Nurse Practitioner 01/25/23
--- OUTSIDE RECORDS SUMMARY | 2025-03-13 09:33 | XMS_ITS | Encounter Summary ---
Author Organization [facility] Address [address] [place] [address] Care Team Providers Care Furnace Builder Name Role Phone Shaista Corona KEY PUNCH OPERATOR Unavailable [phone] Celestino Cooper MD Primary Care Provider [phone] Shaista Corona KEY PUNCH OPERATOR Unavailable [phone] Encounter Details Date Type Department Care Team (Late st Contact Info) Description 05/03/2024 Orders Only [facility] [address] [place] [address] Shaista Corona KEY PUNCH OPERATOR [address] [facility] [place] [address] On potassium wasting diuretic therapy (Primary Dx); Asymptomatic microscopic hematuria Social History Tobacco Use Types Packs/Day Years [...] How often do you attend chur or church services? More than 4 times per year 08/29/2023 Do you belong to any clubs o r organizations such as advent groups, unions, fraternal or athletic groups, or [...] medical care, and heating? Somewhat hard 08/29/2023 [facility] [place] of Occupat ional Health - Occupational Stress [...] place to sleep or slept in a group home (including now)? No 08/29/2023 Sex and Gender Information Value Date Recorded Sex Assigned at Not on file Legal Sex Male 11:16 PM EDT Gender Identity Not on file Sexual Orientation Not on file documented as of this encounter Plan of Treatment Scheduled Orders Name Type Priority Associated Diagnoses Orde r Schedule Basic metabolic panel Lab Routine On potassium wasting diuretic therapy Expected: 05/09/2024 (Approximate), Expires: 05/03/2025 Urinalysis with reflex microscopic (clean catch) Lab Routine Asymptomatic microscopic hematuria Expected: 06/03/2024 (Approximate), Expires: 05/03/2025 documented as of this encounter Visit Diagnoses Diagnosis On potassium wasting diuretic therapy- Primary Asymptomatic microscopic hematuria documented in this encounter Care Teams Furnace Builder Relationship Specialty Start Date End Date Celestino Cooper MD PCP - General Family Medicine 08/23/23 Shaista Corona NP [address] [place] [address] PCP - [employer] 10/08/24 Shaista Corona NP Referring Physician Nurse Practitioner 01/25/23 documented as of this encounter
--- OUTSIDE RECORDS SUMMARY | 2025-03-13 09:33 | XMS_ITS | Encounter Summary ---
Author Organization [facility] Address [address] [facility] [place] [address] Care Team Providers Care Pull Out Operator Name Role Phone Shaista Corona SOLUTION DESIGN ENGINEER Unavailable [phone] Celestino Cooper MD Primary Care Provider [phone] Shaista Corona SOLUTION DESIGN ENGINEER Unavailable [phone] Encounter Details Date Type Department Care Team (Late st Contact Info) Description 11/15/2023 Orders Only [facility] [address] [place] [id number] Thad Li MD [address] [place] [address] [place] [address] Social History Tobacco Use Types Packs/Day Years [...] often do you attend chur ch or latter day services? More than 4 times per year 08/29/2023 Do you belong to any clubs o r organizations such as evangelical groups, unions, fraternal or athletic groups, or [...] medical care, and heating? Somewhat hard 08/29/2023 [facility] of Occupat ional Health - Occupational Stress [...] place to sleep or slept in a fci (including now)? No 08/29/2023 Sex and Gender Information Value Date Recorded Sex Assigned at Not on file Legal Sex Male 11:16 PM EDT Gender Identity Not on file Sexual Orientation Not on file documented as of this encounter Plan of Treatment Not on file documented as of this encounter Procedures Procedure Name Priority Date/Time Associated Diagnosis Comments MRI SPINE LUMBAR W/ + W/O CONTRAST Routine 11/13/2023 8:33 AM EDT documented in this encounter Results * MRI SPINE LUMBAR W/ + W/O CONTRAST (11/13/2023 8:33 AM EDT) Anatomical Region Laterality Modality Radiographic Tracey ging us Thad Li MD IMG XR PROCEDURES Final Res ult documented in this encounter Visit Diagnoses Not on filedocumented in this encounter Care Teams Pull Out Operator Relationship Specialty Start Date End Date Celestino Cooper MD PCP - General Family Medicine 08/23/23 Shaista Corona NP [address] [place] [address] PCP - [employer] 10/08/24 Shaista Corona NP Referring Physician Nurse Practitioner 01/25/23 documented as of this encounter
--- OUTSIDE RECORDS SUMMARY | 2025-03-13 09:33 | XMS_ITS | Encounter Summary ---
Author Organization [facility] Address [address] [place] [address] Care Team Providers Care Finance Business Manager Name Role Phone Shaista Corona DRAFTSPERSON Unavailable [phone] Celestino Cooper MD Primary Care Provider [phone] Shaista Corona DRAFTSPERSON Unavailable [phone] Encounter Details Date Type Department Care Team (Late st Contact Info) Description 11/13/2023 Clinisync Result Encounter [facility] External Department Unsolicited Provider, Generic External Data Social History Tobacco Use Types Packs/Day Years [...] often do you attend chur ch or restorationist services? More than 4 times per year 08/29/2023 Do you belong to any clubs o r organizations such as religious groups, unions, fraternal or athletic groups, or [...] you are drinking? Patient does not drink 4 Q3: How often do you have si x or more drinks on one occasion? Never 08/29/2023 Overall Financial Resource Strain (CARDIA) Answe r Date Recorded How hard is it for you to pa y for the very basics like food, housing, medical care, and heating? Somewhat hard 08/29/2023 [facility] of Occupat ional Health - Occupational [...] place to sleep or slept in a care home (including now)? No 08/29/2023 Sex and Gender Information Value Date Recorded Sex Assigned at Not on file Legal Sex Male 11:16 PM EDT Gender Identity Not on file Sexual Orientation Not on file documented as of this encounter Plan of Treatment Not on file documented as of this encounter Procedures Procedure Name Priority Date/Time Associated Diagnosis Comments MR LUMBAR SPINE WO CON 11/13/2023 8:45 AM EDT documented in this encounter Results * MR LUMBAR SPINE WO CON (11/13/2023 8:45 AM EDT) Anatomical Region Laterality Modality Other 11/13/2023 8:45 AM EDT Narrative 11/13/2023 8:[place] [address] Magnetic Resonance Report Signed Patient: LORI ANTON MR#: [id number] : 1965 Acct:[id number] Age/Sex: 58 / M ADM Date: 11/13/23 Loc: MRI Attending Dr: Thad Hernandez M.D. Ordering Physician: Thad Hernandez M.D. Date of Service: 11/13/23 Procedure(s): MR lumbar spine wo con Accession Number(s): [id number] cc: Shaista Corona DRAFTSPERSON; Thad Hernandez M.D. [place] [address] Patient Name: LORI ANTON MRN: [id number] date: 1965 Sex: M Assigned Patient Location: MRI Current Patient Location: MRI Accession/Order Number: [id number] Exam Date: 11/13/2023 07:48 Report Date: 11/13/2023 08:45 At the request of: THAD HERNANDEZ Procedure: MR lumbar spine wo con MR lumbar spine wo con, 11/13/2023 7:48 AM EDT INDICATION: Lumbar Radiculopathy M54.16 COMPARISON: Prior x-ray of the lumbar spine dated 10/28/2023 TECHNIQUE: Multiplanar, multisequential MRI images of lumbar spine were obtained without contrast. FINDINGS: For dictation purposes, the lowest complete disc space in the lumbar spine considered as L5-S1. There is loss of normal physiologic lumbar lordosis with levoscoliosis centered at the level of L2-L3 with focal right-sided sclerosis. The vertebral height is relatively preserved. The conus medullaris is at the level of L1. No signal abnormality within the visualized spinal cord is noted. Level of T12-L1 is unremarkable. At the level of L1-L2, there are disc bulge with mild left neuroforaminal narrowing and mild canal stenosis. At the level of L2-L3, there are disc bulge with moderate right and mild left neuroforaminal narrowing and moderate canal stenosis. At the level of L3-4, there are disc bulge with moderate bilateral neuroforaminal narrowing and moderate to severe canal stenosis. At the level of L4-5, there are disc bulge with mild bilateral neuroforaminal narrowing and mild canal stenosis. At the level of L5-S1, there are disc bulge with mild right and moderate neuroforaminal narrowing and no canal stenosis. Bilateral S1 nerve roots are in close contact with the disc bulge in the lateral recesses. The paraspinal muscles are unremarkable. MR/MR lumbar spine wo con IMPRESSION: Moderate degenerative changes of lumbar spine in particular at L2-L3, L3-L4 and L5-S1. Electronically authenticated by: CAMDEN VARELA Date: 11/13/2023 08:45 Dictated By: Camden Varela M.D. Signed By: 11/13/23 0848 DD/ 0845 TD/TT: Doughnut Dough Mixer: Procedure Note Radiology, Radiologist, MD - 11/13/2023 [place] [address] Magnetic Resonance Report Signed Patient: LORI ANTON [facility]#: [id number] : 1965Acct:[id number] Age/Sex: 58 / MADM Date: 11/13/23 Loc: MRI Attending Dr: Thad Hernandez M.D. Ordering Physician: Thad Hernandez M.D. Date of Service: 11/13/23 Procedure(s): MR lumbar spine wo con Accession Number(s): [id number] cc: Shaista Corona DRAFTSPERSON; Thad Hernandez M.D. [place] [id number] Patient Name: LORI ANTON MRN: [id number] date: 1965 Sex: M Assigned Patient Location: MRI Current Patient Location: MRI Accession/Order Number: [id number] Exam Date: 11/13/2023 07:48 Report Date: 11/13/2023 08:45 At the request of: THAD HERNANDEZ Procedure: MR lumbar spine wo con MR lumbar spine wo con, 11/13/2023 7:48 AM EDT INDICATION: Lumbar Radiculopathy M54.16 COMPARISON: Prior x-ray of the lumbar spine dated 10/28/2023 TECHNIQUE: Multiplanar, multisequential MRI images of lumbar spine were obtained without contrast. FINDINGS: For dictation purposes, the lowest complete disc space in the lumbar spine considered as L5-S1. There is loss of normal physiologic lumbar lordosis with levoscoliosis centered at the level of L2-L3 with focal right-sided sclerosis. The vertebralheight is relatively preserved. The conus medullaris is at the level of L1. No signal abnormality withinthe visualized spinal cord is noted. Level of T12-L1 is unremarkable. At the level of L1-L2, there are disc bulge with mild left neuroforaminal narrowing and mild canal stenosis. At the level of L2-L3, there are disc bulge with moderate right and mildleft neuroforaminal narrowing and moderate canal stenosis. At the level of L3-4, there are disc bulge with moderate bilateral neuroforaminal narrowing and moderate to severe canal stenosis. At the level of L4-5, there are disc bulge with mild bilateralneuroforaminal narrowing and mild canal stenosis. At the level of L5-S1, there are disc bulge with mild right and moderate neuroforaminal narrowing and no canal stenosis. Bilateral S1 nerve roots are in close contact with the disc bulge in the lateral recesses. The paraspinal muscles are unremarkable. MR/MR lumbar spine wo con IMPRESSION: Moderate degenerative changes of lumbar spine in particular at L2-L3,L3-L4 and L5-S1. Electronically authenticated by: CAMDEN VARELA Date: 11/13/2023 08:45 Dictated By: Camden Varela M.D. Signed By:11/13/23 0848 DD/ 0845 TD/TT: Doughnut Dough Mixer: us Generic External Data Provider [facility] Final Result documented in this encounter Visit Diagnoses Not on filedocumented in this encounter Care Teams Finance Business Manager Relationship Specialty Start Date End Date Celestino Cooper MD PCP - General Family Medicine 08/23/23 Shaista Corona NP [address] [place] [address] PCP - [facility] 10/08/24 Shaista Corona NP Referring Physician Nurse Practitioner 01/25/23 documented as of this encounter
--- OUTSIDE RECORDS SUMMARY | 2025-03-13 09:33 | XMS_ITS | Encounter Summary ---
Author Organization [facility] Address [address] [place] [address] Care Team Providers Care Painting Department Supervisor Name Role Phone Shaista Corona SALES OFFICE COORDINATOR Unavailable [phone] Celestino Cooper MD Primary Care Provider [phone] Shaista Corona NP Unavailable [phone] Encounter Details Date Type Department Care Team (Late st Contact Info) Description 10/31/2023 Clinisync Result Encounter [facility] External Department Unsolicited Shaista Corona NP [address] [place] [address] Social History Tobacco Use Types Packs/Day Years [...] often do you attend chur ch or faith services? More than 4 times per year 08/29/2023 Do you belong to any clubs o r organizations such as yazidism groups, unions, fraternal or athletic groups, or [...] medical care, and heating? Somewhat hard 08/29/2023 [facility] [place] of Occupat ional Health - Occupational Stress [...] place to sleep or slept in a detention (including now)? No 08/29/2023 Sex and Gender Information Value Date Recorded Sex Assigned at Not on file Legal Sex Male 11:16 PM EDT Gender Identity Not on file Sexual Orientation Not on file documented as of this encounter Plan of Treatment Not on file documented as of this encounter Procedures Procedure Name Priority Date/Time Associated Diagnosis Comments XR KNEE 4+ VIEWS LEFT 10/31/2023 1:23 PM EDT documented in this encounter Results * XR knee 4+ views left (10/31/2023 1:23 PM EDT) Anatomical Region Laterality Modality Lower Extremities, Knee Left Radiogra phic Imaging 10/31/2023 1:23 PM EDT Narrative 10/31/2023 1:26 [place] [address] XRay Report Signed Patient: LORI ANTON MR#: [id number] : 1965 Acct:[id number] Age/Sex: 58 / M ADM Date: 10/31/23 Loc: [facility] Attending Dr: Shaista Corona SALES OFFICE COORDINATOR Ordering Physician: Shaista Corona NP Date of Service: 10/31/23 Procedure(s): XR knee LT 4V Accession Number(s): [id number] cc: Shaista Corona NP [place] [id number] Patient Name: LORI ANTON MRN: [id number] date: 1965 Sex: M Assigned Patient Location: RAD Current Patient Location: RAD Accession/Order Number: [id number] Exam Date: 10/31/2023 12:45 Report Date: 10/31/2023 13:23 At the request of: SHAISTA CORONA Procedure: XR knee LT 4V PROCEDURE: XR knee LT 4V, XR tibia fibula LT 2V COMPARISON: None. HISTORY: left lower leg pain, radicular symptoms lumbar spine FINDINGS: BONES:No acute fracture or dislocation. Moderate to severe tricompartmental osteoarthropathy of the knee with narrowing of the medial joint space and marginal osteophyte formation. Heterotopic ossification along the proximal fibular head. Moderate plantar enthesopathic spurring of the calcaneus. Asymmetry of the tibiotalar joint widening laterally SOFT TISSUES:Negative. No visible soft tissue swelling. EFFUSION:None visible. OTHER: Negative. XR/XR knee LT 4V IMPRESSION: Osteoarthritis of the knee and ankle No acute fracture Electronically authenticated by: LORI ROJAS Date: 10/31/2023 13:23 Dictated By: Lori Rojas M.D. Signed By: 10/31/23 1326 DD/ 1323 TD/TT: Social Media Executive: Procedure Note Radiology, Radiologist, MD - 10/31/2023 [place] [address] XRay Report Signed Patient: LORI ANTON MMR#: [id number] : 1965Acct:[id number] Age/Sex: 58 / MADM Date: 10/31/23 Loc: [facility] Attending Dr: Shaista Corona NP Ordering Physician: Shaista Corona NP Date of Service: 10/31/23 Procedure(s): XR knee LT 4V Accession Number(s): [id number] cc: Shaista Corona NP [place] [id number] Patient Name: LORI ANTON MRN: [id number] date: 1965 Sex: M Assigned Patient Location: [facility] Current Patient Location: [facility] Accession/Order Number: [id number] Exam Date: 10/31/2023 12:45 Report Date: 10/31/2023 13:23 At the request of: SHAISTA CORONA Procedure: XR knee LT 4V PROCEDURE: XR knee LT 4V, XR tibia fibula LT 2V COMPARISON: None. HISTORY: left lower leg pain, radicular symptoms lumbar spine FINDINGS: BONES:No acute fracture or dislocation. Moderate to severetricompartmental osteoarthropathy of the knee with narrowing of the medial joint space and marginal osteophyte formation. Heterotopic ossification along the proximal fibular head. Moderate plantar enthesopathic spurring of the calcaneus. Asymmetry of the tibiotalar joint widening laterally SOFT TISSUES:Negative. No visible soft tissue swelling. EFFUSION:None visible. OTHER: Negative. XR/XR knee LT 4V IMPRESSION: Osteoarthritis of the knee and ankle No acute fracture Electronically authenticated by: LORI ROJAS Date: 10/31/2023 13:23 Dictated By: Lori Rojas M.D. Signed By:10/31/23 1326 DD/ 1323 TD/TT: Social Media Executive: Shaista Corona NP IMG XR PROCEDURES Final Result documented in this encounter Visit Diagnoses Not on filedocumented in this encounter Care Teams Painting Department Supervisor Relationship Specialty Start Date End Date Celestino Cooper MD PCP - General Family Medicine 08/23/23 Shaista Corona NP [address] [place] [address] PCP - [employer] 10/08/24 Shaista Corona NP Referring Physician Nurse Practitioner 01/25/23 documented as of this encounter
--- OUTSIDE RECORDS SUMMARY | 2025-03-13 09:33 | XMS_ITS | Encounter Summary ---
Author Organization [facility] Address [address] [place] [address] Care Team Providers Care Sex Offender Treatment Professional Name Role Phone Shaista Corona DIRECTOR LIFE Unavailable [phone] Celestino Cooper MD Primary Care Provider [phone] Shaista Corona DIRECTOR LIFE Unavailable [phone] Encounter Details Date Type Department Care Team (Late st Contact Info) Description 10/30/2023 Clinisync Result Encounter [facility] External Department Unsolicited [...] often do you attend chur ch or pentecostal services? More than 4 times per year 08/29/2023 Do you belong to any clubs o r organizations such as hinduism groups, unions, fraternal or athletic groups, or [...] medical care, and heating? Somewhat hard 08/29/2023 [facility] of Occupat ional Health - Occupational Stress [...] place to sleep or slept in a [place] health care facility (including now)? No 08/29/2023 Sex and Gender Information Value Date Recorded Sex Assigned at Not on file Legal Sex Male 11:16 PM EDT Gender Identity Not on file Sexual Orientation Not on file documented as of this encounter Plan of Treatment Not on file documented as of this encounter Procedures Procedure Name Priority Date/Time Associated Diagnosis Comments US VENOUS DOPPLER LE LT 10/30/2023 9:29 AM EDT documented in this encounter Results * US VENOUS DOPPLER LE LT (10/30/2023 9:29 AM EDT) Anatomical Region Laterality Modality Other 10/30/2023 9:29 AM EDT Narrative 10/30/2023 9:32 [place] [address] Ultrasound Report Signed Patient: LORI ANTON MR#: [id number] : 1965 Acct:[id number] Age/Sex: 58 / M ADM Date: 10/30/23 Loc: RAD Attending Dr: Stewart Stevens M.D. Ordering Physician: Stewart Stevens Date of Service: 10/30/23 Procedure(s): US venous doppler LE LT Accession Number(s): [id number] cc: Shaista Corona DIRECTOR LIFE; Stewart Stevens [place] [id number] Patient Name: LORI ANTON MRN: [id number] date: 1965 Sex: M Assigned Patient Location: [facility] Current Patient Location: [facility] Accession/Order Number: [id number] Exam Date: 10/30/2023 07:40 Report Date: 10/30/2023 09:29 At the request of: STEWART STEVENS Procedure: US venous doppler LE LT EXAM: US venous doppler LE LT HISTORY: Deep Vein Thrombosis COMPARISON: None. TECHNIQUE: Grayscale, color and Doppler FINDINGS: Region: Left leg Thrombus: None Flow: Normal Augmentation: Normal Compressibility: Normal US/US venous doppler LE LT IMPRESSION: No deep or superficial vein thrombus identified in the left leg Electronically authenticated by: LORI ROJAS Date: 10/30/2023 09:29 Dictated By: Lori Rojas M.D. Signed By: 10/30/23931 DD/ 8 TD/TT: Bus Attendant: Procedure Note Radiology, Radiologist, - 10/30/2023 [place] [address] Ultrasound Report Signed Patient: LORI ANTON MMR#: [id number] : 1965Acct:[id number] Age/Sex: 58 / MADM Date: 10/30/23 Loc: RAD Attending Dr: Stewart Stevens M.D. Ordering Physician: Stewart Stevens Date of Service: 10/30/23 Procedure(s): US venous doppler LE LT Accession Number(s): [id number] cc: Shaista Corona NP; Stewart Stevens [place] [id number] Patient Name: LORI ANTON MRN: [id number] date: 1965 Sex: M Assigned Patient Location: [facility] Current Patient Location: [facility] Accession/Order Number: [id number] Exam Date: 10/30/2023 07:40 Report Date: 10/30/2023 09:29 At the request of: STEWART STEVENS Procedure: US venous doppler LE LT EXAM: US venous doppler LE LT HISTORY: Deep Vein Thrombosis COMPARISON: None. TECHNIQUE: Grayscale, color and Doppler FINDINGS: Region: Left leg Thrombus: None Flow: Normal Augmentation: Normal Compressibility: Normal US/US venous doppler LE LT IMPRESSION: No deep or superficial vein thrombus identified in the left leg Electronically authenticated by: LORI ROJAS Date: 10/30/2023 09:29 Dictated By: Lori Rojas M.D. Signed By:10/30/23931 DD/ 8 TD/TT: Bus Attendant: us Generic External Data Provider [facility] Final Result documented in this encounter Visit Diagnoses Not on filedocumented in this encounter Care Teams Sex Offender Treatment Professional Relationship Specialty Start Date End Date Celestino Cooper MD PCP - General Family Medicine 08/23/23 Shaista Corona NP [address] [place] [address] PCP - [facility] 10/08/24 Shaista Corona NP Referring Physician Nurse Practitioner 01/25/23 documented as of this encounter
--- OUTSIDE RECORDS SUMMARY | 2025-03-13 09:33 | XMS_ITS | Encounter Summary ---
Author Organization [facility] Address [address] [place] [address] Care Team Providers Care Travel Pt Name Role Phone Shaista Corona ORTHOTIST PROSTHETIST Unavailable [phone] Celestino Cooper MD Primary Care Provider [phone] Shaista Corona NP Unavailable [phone] Encounter Details Date Type Department Care Team (Late st Contact Info) Description 08/28/2023 Abstract [facility] [address] [place] [address] Shaisat Corona NP [address] [place] [address] Social History Tobacco Use Types Packs/Day Years Used Date Smoking Tobacco: Every Day Cigarettes Started: 07/10/1999 Tobacco Cessation:Ready to Q uit: Not Asked; Counseling Given: Not Answered Social Connection and Isolat ion Panel [NHANES] Answer Date Recorded In a typical week, how many times do you talk on the phone with family, friends, or neighbors? Once a week 08/29/2023 How often do you get togethe r with friends or relatives? Once a week 08/29/2023 How often do you attend chur ch or advent services? More than 4 times per year 08/29/2023 Do you belong to any clubs o r organizations such as orthodox groups, unions, fraternal or athletic groups, or [...] medical care, and heating? Somewhat hard 08/29/2023 [facility] of Occupat ional Health - Occupational Stress [...] on file documented as of this encounter Functional Status * Audit-C Score Answer Date of Assessment Author 0 08/29/2023 10:01 AM EST Mychart, Generic * Q1: How often do you have a drink containing alcohol? Answer Date of Assessment Author Never 08/29/2023 10:01 AM EST Mychart, Generic * Q2: How many drinks containing alcohol do you have on a typical day when you are drinking? Answer Date of Assessment Author Patient does not drink 08/29/2023 10:01 AM EST M ychart, Generic * Q3: How often do you have six or more drinks on one occasion? Answer Date of Assessment Author Never 08/29/2023 10:01 AM EST Mychart, Generic * Over the past 2 weeks, how often have you been bothered by any of the following problems? Question Answer Date of Assessment Author Little interest or pleasure in doing things Not at all 08/30/2023 8:37 AM Anitra Booth MA Feeling down, depressed, or hopeless Not at all 08/30/2023 8:37 AM Anitra Booth MA Patient Health Questionnaire-2 Score 0 08/30/2023 8:37 AM Lois Booth MA documented as of this encounter Plan of Treatment Not on file documented as of this encounter Visit Diagnoses Not on filedocumented in this encounter Care Teams Travel Pt Relationship Specialty Start Date End Date Celestino Cooper MD PCP - General Family Medicine 08/23/23 Shaista Corona NP [address] [facility] [place] [address] PCP - [employer] 10/08/24 Shaista Corona NP Referring Physician Nurse Practitioner 01/25/23 documented as of this encounter
--- OUTSIDE RECORDS SUMMARY | 2025-03-13 09:33 | XMS_ITS | Encounter Summary ---
Author Organization [facility] Address [address] [facility] [place] [address] Care Team Providers Care Supervisor Evaporator Name Role Phone Shaista Corona TOOTH CUTTER CONTACT WHEEL Unavailable [phone] Celestino Cooper MD Primary Care Provider [phone] Shaista Corona NP Unavailable [phone] Encounter Details Date Type Department Care Team (Late st Contact Info) Description 10/30/2023 Orders Only [facility] [address] [place] [address] Shaista Corona NP [address] [facility] [place] [address] Social History Tobacco Use Types Packs/Day Years [...] often do you attend chur ch or yarsani services? More than 4 times per year [...] heating? Somewhat hard 08/29/2023 [facility] [place] of Occupat ional Health - Occupational Stress [...] place to sleep or slept in a jail (including now)? No 08/29/2023 Sex and Gender Information Value Date Recorded Sex Assigned at Not on file Legal Sex Male 11:16 PM EDT Gender Identity Not on file Sexual Orientation Not on file documented as of this encounter Plan of Treatment Not on file documented as of this encounter Procedures Procedure Name Priority Date/Time Associated Diagnosis Comments US VENOUS LE Routine 10/30/2023 9:40 AM EDT documented in this encounter Results * US VENOUS LE (10/30/2023 9:40 AM EDT) Anatomical Region Laterality Modality Radiographic Tracey ging Shaista Corona TOOTH CUTTER CONTACT WHEEL IMG XR PROCEDURES Final Result documented in this encounter Visit Diagnoses Not on filedocumented in this encounter Care Teams Supervisor Evaporator Relationship Specialty Start Date End Date Celestino Cooper MD PCP - General Family Medicine 08/23/23 Shaista Corona NP [address] [place] [address] PCP - [place] [employer] 10/08/24 Shaista Corona NP Referring Physician Nurse Practitioner 01/25/23 documented as of this encounter
--- OUTSIDE RECORDS SUMMARY | 2025-03-13 09:33 | XMS_ITS | Encounter Summary ---
Author Organization [facility] Address [address] [place] [address] Care Team Providers Care Museum Archivist Name Role Phone Shaista Corona HAIR CLIPPER POWER Unavailable [phone] Celestino Cooper MD Primary Care Provider [phone] Shaista Corona HAIR CLIPPER POWER Unavailable [phone] Reason for Visit * Reason Comments Med Refill Encounter Details Date Type Department Care Team (Late st Contact Info) Description 11/30/2023 Refill [facility] [address] [place] [address] Shaista Corona NP [address] [facility] [place] [address] Muscle spasms of both lower extremities; Bilateral chronic knee pain Social History Tobacco Use Types Packs/Day Years [...] often do you attend chur ch or congregation services? More than 4 times per year 08/29/2023 Do you belong to any clubs o r organizations such as amish groups, unions, fraternal or athletic groups, or [...] medical care, and heating? Somewhat hard 08/29/2023 [facility] [place] of Occupat ional Health - Occupational Stress [...] place to sleep or slept in a nursing home (including now)? No 08/29/2023 Sex and Gender Information Value Date Recorded Sex Assigned at Not on file Legal Sex Male 11:16 PM EDT Gender Identity Not on file Sexual Orientation Not on file documented as of this encounter Plan of Treatment Not on file documented as of this encounter Visit Diagnoses Diagnosis Muscle spasms of both lower extremities Bilateral chronic knee pain documented in this encounter Care Teams Museum Archivist Relationship Specialty Start Date End Date Celestino Cooper MD PCP - General Family Medicine 08/23/23 Shaista Corona NP [address] [place] [address] PCP - [place] [employer] 10/08/24 Shaista Corona NP Referring Physician Nurse Practitioner 01/25/23 documented as of this encounter
--- OUTSIDE RECORDS SUMMARY | 2025-03-13 09:33 | XMS_ITS | Clinical Summary ---
Author Organization [facility] Address [address] [place] [address] Care Team Providers Care Pocket Secretary Assembler Name Role Phone Celestino Cooper MD Primary Care Provider [phone] Allergies Active Allergy Reactions Criticality Noted Date Comments Erythromycin Rash 10/11/2018 Penicillin Other: See Comments 10/11/2018 Never tested for the allergy; one of his parents was allergic to it Medications carvedilol (COREG) 12.5 mg tablet Take 12.5 mg by mouth twice daily with meals. Active predniSONE (DELTASONE) 10 mg tablet Take 10 mg by mouth once daily. Active lisinopril (ZESTRIL, PRINIVIL) 10 mg tablet Take 10 mg by mouth once daily. Active SUBOXONE 8-2 mg film Dissolve 8 Film under the tongue twice daily. 0 12/06/2018 Active FLUoxetine (PROZAC) 20 mg capsule Take 20 mg by mouth. 1 capsule in the morning and 2 capsules at night 3 11/21/2018 Active Active Problems No known active problems Social History Tobacco Use Types Packs/Day Years Used Date Smoking Tobacco: Every Day Cigarettes 0.5 9 Smokeless Tobacco: Never Tobacco Cessation:Ready to Q uit: No Alcohol Use Standard Drinks/Week Comments Never 0 (1 standard drink = 0.6 oz pur e alcohol) AUDIT-C Answer Date Recorded Q1: How often do you have a drink containing alc ohol? Never 12/14/2018 Average Number of Drinks Not on file 019 Frequency of Binge Drinking Not on file 01/2019 Area Deprivation Index Answer Date Pollo rded National Score (1-100), lower number is lower ri sk Not on file 06/16/2020 State Score (1-10), lower number is lower risk N ot on file 06/16/2020 Data from: https://www.neighborhoodatlas.medicine.[facility]/. Last address used for calculation Not on file 06/16/2020 Sex and Gender Information Value Date Recorded Sex Assigned at Not on file Legal Sex Male 2:44 PM EDT Gender Identity Not on file Sexual Orientation Not on file Last Filed Vital Signs Vital Sign Reading Time Taken Comments Blood Pressure - - Pulse 63 12/14/2018 10:07 AM EDT Temperature - - Respiratory Rate - - Oxygen Saturation 95% 12/14/2018 10:07 AM EDT Inhaled Oxygen Concentration - - Weight 104.8 kg (231 lb) 12/14/2018 10:07 AM EDT Height - - Body Mass Index - - Plan of Treatment Health Maintenance Due Date Last Done Comments Anxiety Screening 1985 Depression Screening 1985 HIV Screening 1985 Hepatitis C Screening 1985 DTaP,Tdap,Td Vaccine (1 - Tdap) 1986 Hepatitis B Vaccine (1 of 3 - 19+ 3-dose series) 05/[address] Colonography 2012 Cologuard (FIT-DNA) 2012 Colonoscopy 2012 Colorectal Cancer Screening 2012 Diabetes Screening 2012 Fecal Occult Blood 2012 Prostate Cancer Screening Discussion 2012 Sigmoidoscopy 2012 Pneumococcal Vaccine: 50+ (1 of 1 - PCV) 2017 Shingrix Vaccine (1 of 2) 2017 Influenza Vaccine (#1) 2025 Care Teams Pocket Secretary Assembler Relationship Specialty Start Date End Date Celestino Cooper MD PCP - General Family Medicine 10/09/15
--- OUTSIDE RECORDS SUMMARY | 2025-03-13 09:33 | XMS_ITS | Encounter Summary ---
Author Organization [facility] Address [address] [place] [address] Care Team Providers Care Scientologist Name Role Phone Celestino Cooper MD Primary Care Provider [phone] Shaista Corona SALES DONOR RECRUITMENT REPRESENTATIVE Unavailable [phone] Celestino Cooper MD Primary Care Provider [phone] Shaista Corona SALES DONOR RECRUITMENT REPRESENTATIVE Unavailable [phone] Reason for Visit * Reason Comments Med Refill Encounter Details Date Type Department Care Team (Late st Contact Info) Description 06/11/2023 Refill [facility] [address] [facility] [place] [address] Shaista Corona, SALES DONOR RECRUITMENT REPRESENTATIVE [address] [facility] [place] [address] Pain in right knee Social History Tobacco Use Types Packs/Day Years Used Date Smoking Tobacco: Never Assessed Sex and Gender Information Value Date Recorded Sex Assigned at Not on file Legal Sex Male 11:16 PM EDT Gender Identity Not on file Sexual Orientation Not on file documented as of this encounter Plan of Treatment Not on file documented as of this encounter Visit Diagnoses Diagnosis Pain in right knee documented in this encounter Care Teams Scientologist Relationship Specialty Start Date End Date Celestino Cooper MD PCP - General Family Medicine 01/25/23 08/22/23 Celestino Cooper MD PCP - General Family Medicine 08/23/23 Shaista Corona NP [address] [place] [address] PCP - [facility] 10/08/24 Shaista Corona NP Referring Physician Nurse Practitioner 01/25/23 documented as of this encounter
--- OUTSIDE RECORDS SUMMARY | 2025-03-13 09:33 | XMS_ITS | Patient Health Record ---
Author Organization [facility] Address [address] [place] [address] Care Team Providers Care Assistant Corporate Controller Name Role Phone Thad Li Unavailable [phone] Saira Alisha Unavailable [phone] Allergies No Known Allergies Reason For Referral No Information Medications Medication SIG (Take, Route, Frequency, Duration) Notes Start Date End Date Status tiZANidine Active lisinopril Active FLUoxetine Active diclofenac Active carvedilol Active buprenorphine Active amLODIPine Active Social History Tobacco Use: Social History Observation Description Date Details (start date - stop date) Current Smoker NA - NA AUDIT-C (Standard) Question Answer Notes Did you have a drink containing alcohol in the p ast year? No Points 0 Interpretation Negative Tobacco Control (Standard) Question Answer Notes Tobacco use: Current smoker Problems Problem Type SNOMED Code ICD Code Onset Dates Problem Status W/U Status Risk Notes Problem Osteoarthritis of knee (513143633) Primary osteoarthritis of left knee (M17.12) Active confirmed Problem 04146909 Spinal stenosis of lumbar region, unspecified whether neurogenic claudication present (M48.061) Active confirmed Vital Signs Height 6'3 in 06/17/2024 Weight 215 lbs 06/17/2024 BMI 26.87 06/17/2024 Encounters Encounter Location Date Provider Diagnosis [facility] Office [address] [place] [address] [address] [place] [address] 06/17/2024 Alisha Chávez Primary osteoarthritis of left knee M17.12 and Spinal stenosis of lumbar region, unspecified whether neurogenic claudication present M48.061 Assessments Encounter Date Diagnosis (ICD Code) Assessment Notes Treatment Notes Treatment Clinical Notes Section Notes 06/17/2024 Primary osteoarthritis of left knee (ICD-10 - M17.12) 1. Left knee osteoarthr itis 2. L2-S1 DDD/stenos is/radicul opathy/NFS 06/17/2024 Spinal stenosis of lumbar region, unspecified whether neurogenic claudication present (ICD-10 - M48.061) 1. Left knee osteoarthr itis 2. L2-S1 DDD/stenos is/radicul opathy/NFS 06/17/2024 Other Today I reviewe d patient's MRI results of his lumbar spine and and recommending referral to our spine partner, Dr. Persaud given his canal stenosis, neuroforaminal stenosis with radicular symptoms that are affecting his ADLs and work. We also discussed risks and benefits of corticosteroid injection into the left knee, patient wished to proceed. I did provide him with this injection today. We can see him back in 6 weeks for recheck of his left knee. 1. Left knee osteoarthr itis 2. L2-S1 DDD/stenos is/radicul opathy/NFS Plan Of Treatment Pending Test Test Name Order Date MRI : Lumbosacral Spine W/O Contrast - 7 214711/06/2023 Insurance Providers Payer Name Payer Address Payer Phone Subscriber Number Group Number Insured Name Patient Relationship to Insured Coverage Start Date Coverage End Date [facility] [address] [place] [address] [id number] LORI GOMEZ Self - patient is the insured
--- OUTSIDE RECORDS SUMMARY | 2025-03-13 09:33 | XMS_ITS | Encounter Summary ---
Author Organization [facility] Address [address] [place] [address] Care Team Providers Care Talent Consultant Name Role Phone Shaista Corona PEDIATRIC GENETICIST Unavailable [phone] Celestino Cooper MD Primary Care Provider [phone] Shaista Corona NP Unavailable [phone] Encounter Details Date Type Department Care Team (Late st Contact Info) Description 10/31/2023 Clinisync Result Encounter [facility] External Department Unsolicited Shaista Corona NP [address] [place] [address] Social History Tobacco Use Types Packs/Day Years [...] often do you attend chur ch or samaritan services? More than 4 times per year 08/29/2023 Do you belong to any clubs o r organizations such as pentecostal groups, unions, fraternal or athletic groups, or [...] medical care, and heating? Somewhat hard 08/29/2023 [facility] Occupat [facility] - Occupational Stress [...] place to sleep or slept in a snf (including now)? No 08/29/2023 Sex and Gender Information Value Date Recorded Sex Assigned at Not on file Legal Sex Male 11:16 PM EDT Gender Identity Not on file Sexual Orientation Not on file documented as of this encounter Plan of Treatment Not on file documented as of this encounter Procedures Procedure Name Priority Date/Time Associated Diagnosis Comments XR TIBIA FIBULA LT 2V 10/31/2023 1:23 PM EDT documented in this encounter Results * XR TIBIA FIBULA LT 2V (10/31/2023 1:23 PM EDT) Anatomical Region Laterality Modality Other 10/31/2023 1:23 PM EDT Narrative 10/31/2023 1:26 [place] [address] XRay Report Signed Patient: LORI ANTON MR#: [id number] : 1965 Acct:[id number] Age/Sex: 58 / M ADM Date: 10/31/23 Loc: RAD Attending Dr: Shaista Corona PEDIATRIC GENETICIST Ordering Physician: Shaista Corona NP Date of Service: 10/31/23 Procedure(s): XR tibia fibula LT 2V Accession Number(s): [id number] cc: Shaista Corona NP [facility] [place] [id number] Patient Name: LORI ANTON MRN: [id number] date: 1965 Sex: M Assigned Patient Location: RAD Current Patient Location: RAD Accession/Order Number: [id number] Exam Date: 10/31/2023 12:45 Report Date: 10/31/2023 13:23 At the request of: SHAISTA CORONA Procedure: XR tibia fibula LT 2V PROCEDURE: XR knee LT 4V, XR tibia [...] tissue swelling. EFFUSION:None visible. OTHER: Negative. XR/XR tibia fibula LT 2V IMPRESSION: Osteoarthritis of the knee and ankle No acute fracture Electronically authenticated by: LORI ROJAS Date: 10/31/2023 13:23 Dictated By: Lori Rojas M.D. Signed By: 10/31/23 1326 DD/ 1323 TD/TT: Wire Coiler Machine Operator: Procedure Note Radiology, Radiologist, MD - 10/31/2023 [place] [address] XRay Report Signed Patient: LORI ANTON MMR#: [id number] : 1965Acct:[id number] Age/Sex: 58 / MADM Date: 10/31/23 Loc: [facility] Attending Dr: Shaista Corona NP Ordering Physician: Shaista Corona NP Date of Service: 10/31/23 Procedure(s): XR tibia fibula LT 2V Accession Number(s): [id number] cc: Shaista Corona NP [facility] [place] [id number] Patient Name: LORI ANTON MRN: [id number] date: 1965 Sex: M Assigned Patient Location: [facility] Current Patient Location: [facility] Accession/Order Number: [id number] Exam Date: 10/31/2023 12:45 Report Date: 10/31/2023 13:23 At the request of: SHAISTA CORONA Procedure: XR tibia fibula LT 2V PROCEDURE: XR knee LT 4V, XR tibia [...] tissue swelling. EFFUSION:None visible. OTHER: Negative. XR/XR tibia fibula LT 2V IMPRESSION: Osteoarthritis of the knee and ankle No acute fracture Electronically authenticated by: LORI ROJAS Date: 10/31/2023 13:23 Dictated By: Lori Rojas M.D. Signed By:10/31/23 1326 DD/ 1323 TD/TT: Wire Coiler Machine Operator: us Shaista Corona NP [facility] Final Result documented in this encounter Visit Diagnoses Not on filedocumented in this encounter Care Teams Talent Consultant Relationship Specialty Start Date End Date Celestino Cooper MD PCP - General Family Medicine 08/23/23 Shaista Corona NP [address] [place] [address] PCP - [facility] 10/08/24 Shaista Corona NP Referring Physician Nurse Practitioner 01/25/23 documented as of this encounter
--- OUTSIDE RECORDS SUMMARY | 2025-03-13 09:37 | XMS_ITS | CCD ---
Author Organization [facility] Informat ion Partnership [facility] Care Team Providers Care Personnel Associate Name Role Phone Supriya Brown Unavailable CJ, RADHA SHAISTA Primary Care Unavailable MARKER ., DR KELLER Attending Unavailable MARKER ., DR KELLER Admitting Unavailable AICHHOLLorna, RADHA SHAISTA Primary Care Unavailable CHRISTINA STEVENS Consulting Unavailable JENIFER ., MERI Attending Unavailable JENIFER ., MERI Admitting Unavailable SKYE WOODS Consulting Unavailable CATRACHITO HENSLEY Consulting Unavailable AICHHOLZ, TOLL PATROLMAN SHAISTA Primary Care Unavailable CHRISTINA STEVENS Attending Unavailable CHRISTINA STEVENS Admitting Unavailable LORI RODRIGUEZ Consulting Unavailable AICHHOLZ, TOLL PATROLMAN SHAISTA Primary Care Unavailable MIKKI .VASILE Attending Unavailable MIKKI ., VASILE Consulting Unavailable MIKKI ., VASILE Admitting Unavailable LORI DOWNEY Consulting Unavailable MERI SIMPSON Consulting Unavailable Cj Shaista J Primary Care Provider MD Isai Derek Admit Provider MD Sanjay Holt Other Provider MD Reginald Arroyo Other Provider MD Rubi Ramos Attending Provider [phone] MARLO Silva Emergency Provider [phone] MARLO Gay Attending Provider Ismael Huitron Unavailable [...] Aichholz, Shaista J Primary Care Unavailable Aichholz CONSTRUCTION ADMINISTRATOR, Shaista Unavailable Celestino Cooper MD Primary Care Provider [phone] AICHHOLZ, SHAISTA Attending Unavailable AICHHOLZ, SHAISTA Attending Unavailable AICHHOLZ, SHAISTA Attending Unavailable AICHHOLZ, SHAISTA Attending Unavailable AICHHOLZ, SHAISTA Attending Unavailable AICHHOLZ, SHAISTA Attending Unavailable AICHHOLZ, SHAISTA Attending Unavailable AICHHOLZ, SHAISTA Attending Unavailable Gregg PATTEN Attending Unavailable Gregg PATTEN Attending Unavailable Lola CORTEZ Attending Unavailable Lola CORTEZ Attending Unavailable Aichholz CONSTRUCTION ADMINISTRATOR, Shaista Unavailable Allergies Allergy Classification Reported Allergen(s) Allergy Type Date of Onset Reaction(s) Facility (1 source) Azithromycin Drug Allergy Unknown [employer] Other (3 sources) Penicillin; Translations: [penicillin] Drug Allergy Unknown [facility] (1 source) Azithromycin Drug Allergy [facility] (5 sources) Erythromycin Drug Allergy 3 Rash [facility] (1 source) E.E.S. Drug allergy (disorder) 3 [facility] (20 sources) Penicillins; Translations: [Penicillins] Allergy to substance 3 [facility] (20 sources) Erythromycin Drug Allergy 4 rash, Unknown [facility] (1 source) erythromycin base Drug allergy (disorder) 4 [facility] Repository Medications Current Medications Medication Drug Class(es) Dates Sig (Normalized) Sig (Original) [id number] 200 actuat albuterol 0.09 mg/actuat metered dose inhaler (9 sources) beta2-Adrenergic Agonist Start: 08-22-2024 End: 09-21-2024 take 2 puff(s) by inhalation every six hours for wheezing albuterol HFA 90 mcg/act inhaler Indications: Pulmonary infiltrate on chest x-ray Inhale 2 puffs every 6 (six) hours if needed for shortness of breath or wheezing 18 g 08/22/2024 Active Start: 07-07-2022 take 2 puff(s) by in halation every four hours as needed Albuterol Sulfate [...] by mouth Daily 90 tablet 1 07/18/2024 Active Start: 11-05-2022 take 10 mg by [...] mg) before bedtime. 180 tablet 1 07/18/2024 Active Start: 11-05-2022 End: 11-21-2022 take 25 mg by mouth twice daily Carvedilol Active 25 M G PO Twice daily 60 November 21, 2022 10:50am Carvedilol Activ e cetirizine hydrochloride 10 mg oral tablet (1 source) Histamine-1 Receptor Antagonist Start: 12-12-2024 End: 12-26-2024 take 1 tablet by mouth once daily cetirizine (ZyrTEC) 10 MG tablet Indications: Rash Take 1 tablet (10 mg) by mouth Daily for 14 days 14 tablet 12/12/2024 12/26/2024 Active dextromethorphan hydrobromide 3 mg/ml / promethazine hydrochloride 1.25 mg/ml oral solution (1 source) Phenothiazine, Uncompetitive D-xkttdo-A-aspartat e Receptor Antagonist, Sigma-1 Agonist Start: 07-31-2023 take [...] 04, 2022 11:00pm Diclofenac Activ e doxycycline hyclate 100 mg oral tablet (5 sources) Tetracycline-class Drug Start: 08-22-2024 End: 09-01-2024 doxycycline (Vibra-Tabs) 100 MG tablet Indications: Pulmonary infiltrate on chest x-ray Take 1 tablet (100 mg) by mouth in the morning and 1 tablet (100 mg) before bedtime. Do all this for 10 days. Take with a full glass of water and do not lie down for at least 30 minutes after.. 20 tablet 08/22/2024 09/01/2024 Active Start: 07-07-2022 take 1 capsule by [facility] every twelve hours Doxycycline Monohydrate 100 MG [...] by mouth Daily 90 tablet 1 07/18/2024 Active Start: 11-21-2022 take 20 mg by [...] 02/29/2024 Active tadalafil 5 mg oral tablet (14 sources) Phosphodiesterase 5 Inhibitor Start: 07-24-2024 End: 09-20-2024 take 1 tablet by mouth once daily tadalafil (Cialis) 5 MG tablet Indications: Benign prostatic hyperplasia with weak urinary stream Take 1 tablet (5 mg) by mouth Daily 30 tablet 2 08/21/2024 Active tamsulosin hydrochloride 0.4 mg oral capsule [...] for muscle spasms 360 tablet 1 08/18/2024 Active Start: 12-07-2023 End: 05-29-2024 tiZANidine (Zanaflex) [...] PO Twice daily November 04, 2022 11:00pm triamcinolone acetonide 1 mg/ml topical cream (1 source) Corticosteroid Start: 12-12-2024 End: 12-27-2024 triamcinolone (Kenalog) 0.1 % cream Indications: Rash Apply topically in the morning and before bedtime. Do all this for 15 days. Apply to affected area 1-2 times daily as needed. Avoid face and groin. No longer than 14 days. 45 g 12/12/2024 12/27/2024 Active Completed/Discontinued Medications Medication Drug Class(es) Dates Sig [...] benign prostatic hypertrophy] Onset: 08-29-2022 08-30-2023 Chronic Influenza (1 source) Influenza due to Influenza A virus; Translations: [Influenza due to other identified influenza virus with other respiratory manifestations] 07-31-2023 Episodic Osteoarthritis (20 sources) Bilateral primary osteoarthritis of knee; Translations: [Arthritis] Onset: 03-16-2022 11-05-2022 Chronic Other aftercare (1 source) Other halfway (current) drug therapy; Translations: [OTH DIRECTOR OF PRODUCT MANAGEMENT CURRENT DRUG THERAPY] Onset: 08-29-2022 Episodic Other lower respiratory disease (1 source) Personal history of other diseases of the respiratory system Episodic Other nervous system disorders (20 sources) Chronic pain; Translations: [Other chronic pain] Onset: 08-30-2023 08-30-2023 Chronic Other skin disorders (3 sources) Eruption; Translations: [Rash and other nonspecific skin eruption] Onset: 12-12-2024 12-12-2024 Episodic Other upper respiratory infections (1 source) [...] 11-10-2022 Episodic Genitourinary symptoms and ill-defined conditions (20 sources) Asymptomatic microscopic hematuria; Translations: [Asymptomatic microscopic hematuria] Onset: 05-03-2024 05-03-2024 Episodic Immunizations and screening for infectious disease (20 sources) Contact with and (suspected) exposure to other viral communicable diseases; Translations: [Needs influenza immunization] Onset: 05-23-2024 Episodic Lymphadenitis (20 sources) Hilar lymphadenopathy ; Translations: [Localized enlarged lymph nodes] Onset: 11-05-2022 Resolved: 08-30-2023 11-05-2022 Episodic Malaise and fatigue (20 sources) Fatigue; Translations: [Other fatigue] Onset: 08-30-2023 08-30-2023 Episodic Other aftercare (20 sources) Drug therapy finding; Translations: [Other halfway (current) drug therapy] Onset: 05-03-2024 05-03-2024 Episodic [...] [Tinnitus, bilateral] Onset: 08-30-2023 08-30-2023 Episodic Other lower respiratory disease (10 sources) Cough; Translations: [Acute cough] Onset: 08-21-2024 08-21-2024 Episodic Other lower respiratory disease (10 sources) Radiologic infiltrate of lung ; Translations: [Other nonspecific abnormal finding of lung field] Onset: 08-22-2024 08-22-2024 Episodic Other non-traumatic joint disorders (20 sources) [...] Tobacco user; Translations: [Tobacco use] Onset: 08-30-2023 Resolved: 10-10-2024 08-30-2023 Episodic Residual codes; unclassified (20 sources) [...] Reference Range Facility ALL BASIC METABOLIC PANELon 11-02-2024 Anion gap [Moles/Vol] 12.4 mmol/L [facility] Calcium [Mass/Vol] 8.7 mg/dL 8.5 - 10. 1 mg/dL [facility] Chloride [Moles/Vol] 105 mmol/L 98 - 10 7 mmol/L [facility] CO2 [Moles/Vol] 27.4 mmol/L 21.0 - 32.0 mmol/L [facility] Creatinine [Mass/Vol] 0.61 mg/dL Low 0.70 - 1.30 mg/dL [facility] GFR/1.73 sq M.predicted CKD-EPI (S/P/Bld) [Vol rate/Area] >60 >=60 mL/min/1.7 3m 2 [facility] Glucose [Mass/Vol] 100 mg/dL 74 - 106 mg/dL [facility] Interpretation and review of laboratory results Abnormal [facility] Potassium [Moles/Vol] 3.8 mmol/L 3.5 - 5.1 mmol/L [facility] Sodium [Moles/Vol] 141 mmol/L 136 - 145 mmol/L [facility] EGFR-NON AF CITIZEN OF [place] >60 >=60 mL/min/1.7 3m 2 [facility] Urea nitrogen [Mass/Vol] 10 mg/dL 7.0 - 18.0 mg/dL [facility] Urea nitrogen/Creatinine [Mass ratio] 16.4 mg/mg [facility] XR CHEST 2Von 08-22-2024 [place] [address] XRay Report Signed Patient: LORI ANTON MR#: [id number] : 1965 Acct:[id number] Age/Sex: 59 / M ADM Date: 08/22/24 Loc: RAD Attending Dr: Shaista Corona CONSTRUCTION ADMINISTRATOR Ordering Physician: Shaista Corona NP Date of Service: 08/22/24 Procedure(s): XR chest 2V Accession Number(s): [id number] cc: Shaista Corona NP [address] [address] Patient Name: LORI ANTON MRN: [id number] date: 1965 Sex: M Assigned Patient Location: RAD Current Patient Location: RAD Accession/Order Number: [id number] Exam Date: 08/22/2024 07:35 Report Date: 08/22/2024 07:49 At the request of: SHAISTA CORONA Procedure: XR chest 2V EXAMINATION: XR chest 2V HISTORY: ACUTE COUGH R05.1 COMPARISON: XR chest 08/27/2022 FINDINGS: LUNGS: Small curvilinear stranding and mild patchy opacity within left lung base. VASCULATURE: No increased pulmonary vasculature. PLEURA: No pneumothorax, effusion, or pleural thickening. CARDIAC: No cardiomegaly or cardiac silhouette abnormality. MEDIASTINUM: No visible mass or adenopathy. BONES: No fracture or visible bone lesion. OTHER: Negative. XR/XR chest 2V IMPRESSION: 1. New mild left basilar infiltrates. Consider follow-up to document clearing. Electronically authenticated by: YOSELIN BHANDARI Date: 08/22/2024 07:49 Dictated By: Yoselin Bhandari M.D. Signed By: 08/22/24 0751 DD/ 0749 TD/TT: Plaster Lather: [facility] Radiology, Radiologi MD melva - 08/22/2024 [place] [address] XRay Report Signed Patient: LORI ANTON MR#: [id number] : 1965 Acct:[id number] Age/Sex: 59 / M ADM Date: 08/22/24 Loc: RAD Attending Dr: Shaista Corona NP Ordering Physician: Shaista Corona NP Date of Service: 08/22/24 Procedure(s): XR chest 2V Accession Number(s): [id number] cc: Shaista Corona NP [facility] [place] [address] Patient Name: LORI ANTON MRN: [facility]:[id number] date: 1965 Sex: M Assigned Patient Location: RAD Current Patient Location: RAD Accession/Order Number: [id number] Exam Date: 08/22/2024 07:35 Report Date: 08/22/2024 07:49 At the request of: SHAISTA CORONA Procedure: XR chest 2V EXAMINATION: XR chest 2V HISTORY: ACUTE COUGH R05.1 COMPARISON: XR chest 08/27/2022 FINDINGS: LUNGS: Small curvilinear stranding and mild patchy opacity within left lung base. VASCULATURE: No increased pulmonary vasculature. PLEURA: No pneumothorax, effusion, or pleural thickening. CARDIAC: No cardiomegaly or cardiac silhouette abnormality. MEDIASTINUM: No visible mass or adenopathy. BONES: No fracture or visible bone lesion. OTHER: Negative. XR/XR chest 2V IMPRESSION: 1. New mild left basilar infiltrates. Consider follow-up to document clearing. Electronically authenticated by: YOSELIN BHANDARI Date: 08/22/2024 07:49 Dictated By: Yoselin Bhandari M.D. Signed By: 08/22/24 0751 DD/ 0749 TD/TT: Plaster Lather: [facility] Radiology Study observation (narrative) [facility] XR CHEST 2VOrdered By: Radio logist Radiology on 08-22-2024 [facility] Work Phone: ALL BASIC METABOLIC PANELon 05-23-2024 Anion gap [Moles/Vol] 14 mmol/L [facility] Calcium [Mass/Vol] 8.2 mg/dL Low 8.5 - 10. 1 mg/dL [facility] Chloride [Moles/Vol] 106 mmol/L 98 - 10 7 mmol/L [facility] CO2 [Moles/Vol] 29.4 mmol/L 21.0 - 32.0 mmol/L [facility] Creatinine [Mass/Vol] 0.77 mg/dL 0.70 - 1.30 mg/dL [facility] GFR/1.73 sq M.predicted CKD-EPI (S/P/Bld) [Vol rate/Area] >60 >=60 mL/min/1.7 3m 2 [facility] Glucose [Mass/Vol] 86 mg/dL 74 - 106 mg/dL [facility] Interpretation and review of laboratory results Abnormal [facility] Potassium [Moles/Vol] 3.4 mmol/L Low 3.5 - 5.1 mmol/L [facility] Sodium [Moles/Vol] 146 mmol/L High 136 - 145 mmol/L [facility] EGFR-NON AF CITIZEN [place] >60 >=60 mL/min/1.7 3m 2 [facility] Urea nitrogen [Mass/Vol] 12 mg/dL 7.0 - 18.0 mg/dL [facility] Urea nitrogen/Creatinine [Mass ratio] 15.6 mg/mg [facility] ALL CBC WITH AUTO DIFFon BASOPHILS ABSOLUTE AUTO 0.1 [facility] Basophils/100 WBC (Bld) 1.1 % 0.2 - 2.0 % [facility] Eosinophils/100 WBC (Bld) 6.9 % 0.9 - 7.0 % [facility] Erythrocyte distribution width (RBC) [Ratio] 13 % 11.0 - 15.0 % [facility] Hematocrit (Bld) [Volume fraction] 39.5 % Low 42.0 - 54.0 % [facility] Hemoglobin (Bld) [Mass/Vol] 13 g/dL Low 14.0 - 18.0 g/dL [facility] IMMATURE GRANULOCYTES ABS AUTO 0.01 [facility] Immature granulocytes/100 WBC (Bld) 0.1 % 0.0 - 0.5 % [facility] Interpretation and review of laboratory results Abnormal [facility] LYMPHOCYTES ABSOLUTE AUTO 3.4 [facility] Lymphocytes/100 WBC (Bld) 43.6 % 20.5 - 60.0 % [facility] MCH (RBC) [Entitic mass] 30.4 pg 25.9 - 34.0 pg [facility] MCHC (RBC) [Mass/Vol] 32.9 g/dL 29.9 - 35.2 g/dL [facility] MCV (RBC) [Entitic vol] 92.3 fL 80.0 - 94.0 fL [facility] MONOCYTES ABSOLUTE AUTO 0.7 [facility] Monocytes/100 WBC (Bld) 8.7 % 1.7 - 12.0 % [facility] NEUTROPHILS ABSOLUTE AUTO 3.1 [facility] Neutrophils/100 WBC (Bld) 39.6 % Low 43.0 - 75.0 % [facility] Platelet mean volume (Bld) [Entitic vol] 9.7 fL 9.5 - 13.5 fL [facility] EO # 0.5 [facility] PLT 289 [facility] TB RBC 4.28 Low [facility] WBC 7.8 [facility] COVID CepheidOrdered By: Art giorgi Garcia on 07-31-2023 SARS-CoV-2 (COVID-19) Ab IA Ql Negative Negative [facility] Comment on above: This is a duplicate Cepheid Xpert Xpress CoV-2/Flu/RSV Plus RNA by RT-PCR result to be used for statistical tracking purpose only. SARS-CoV-2 (COVID-19) RNA ROWENA+probe Ql (Unsp spec) [facility] COVID-19 / Flu A/B / RSV PCR on 07-31-2023 SARS-CoV-2 (COVID-19) RNA ROWENA+probe Ql (Unsp spec) Normal [facility] Comment on above: Performed By: #### C OVID19 FLU RSV, CEPHEID NEG ####[facility] [address] [place] [address] [facility] Cepheid COVID PCR Negativeon 07-31-2023 SARS-CoV-2 (COVID-19) RNA ROWENA+probe Ql (Unsp spec) Negative Normal Negative [facility] Comment on above: Result Comment: This is a duplicate Cepheid Xpert Xpress CoV-2/Flu/RSV Plus RNA by RT-PCR result to be used for statistical tracking purpose only.PERFORMED BY:[facility] [place] [address] [place], [place] [id number] MEDICAL DIRECTORNATI LAUREN M.D. Performed By: #### C OVID19 FLU RSV, CEPHEID NEG ####[facility] [address] [place] [address] [facility] XR chest 2V*on 12-26-2022 XR chest 2V* Normal [facility] Activated partial thrombopla stin time (aPTT) in platelet poor plasma by coagulation aOrdered By: Lisha Silva on 12-08-2022 aPTT Coag (PPP) [Time] 23.5 s 25.1-36.5 [facility] Automated erythrocytes count in urine sediment (number/area)Ordered By: Lisha Silva on 12-08-2022 RBC Auto (Urine sed) [#/Area] 1-2 [HPF] 0-4 [facility] Automated leukocytes count i n urine sediment (number/area)Ordered By: Lisha Silva on 12-08-2022 WBC Auto (Urine sed) [#/Area] None seen [HPF] 0-4 [facility] B-Type Natriuretic Peptideon 12-08-2022 Natriuretic peptide B (Bld) [Mass/Vol] 22.0 pg/mL Normal 5-100 [facility] Comment on above: Result Comment: PERF ORMED BY:[address] [place], [place] [id number] MEDICAL DIRECTORNATI LAUREN M.D. Performed By: #### H S TROP, CBC, BMP, BNP, DDIMER, PT, PTT ####[address] [address] [facility] Basic Metabolic Panelon Anion gap [Moles/Vol] 10.9 mmol/L Normal 6.0-15.0 [facility] Comment on above: Performed By: #### H S TROP, CBC, BMP, BNP, DDIMER, PT, PTT ####[place] [id number] [facility] Calcium [Mass/Vol] 8.6 mg/dL Normal 8.6-10.3 [facility] Comment on above: Performed By: #### H S TROP, CBC, BMP, BNP, DDIMER, PT, PTT ####[place] [id number] [facility] Chloride [Moles/Vol] 105 mmol/L Normal 98-107 [facility] Comment on above: Performed By: #### H S TROP, CBC, BMP, BNP, DDIMER, PT, PTT ####[place] [id number] [facility] CO2 [Moles/Vol] 28.0 mmol/L Normal 21.0-31.0 [facility] Comment on above: Performed By: #### H S TROP, CBC, BMP, BNP, DDIMER, PT, PTT ####[place] [id number] [facility] Creatinine [Mass/Vol] 0.53 mg/dL Low 0.70-1.30 [facility] Comment on above: Performed By: #### H S TROP, CBC, BMP, BNP, DDIMER, PT, PTT ####[place] [address] [place] [address] [facility] Creatinine Clr Calc Pharmacy 188.22 [facility] Comment on above: Result Comment: PERF ORMED BY:[address] [place], [place] [phone] MEDICAL DIRECTORNATI LAUREN M.D. Performed By: #### H S TROP, CBC, BMP, BNP, DDIMER, PT, PTT ####[place] [id number] [facility] GFR/1.73 sq M.predicted MDRD (S/P/Bld) [Vol rate/Area] mL/min/{1.73_m2} [facility] Comment on above: Performed By: #### H S TROP, CBC, BMP, BNP, DDIMER, PT, PTT ####[place] [id number] [facility] Glucose [Mass/Vol] 99 mg/dL Normal 70-100 [facility] Comment on above: Result Comment: [place] Glucose Reference Range is dependent on time and content of last meal. Glucose of more than 200 mg/dL in a nonstressed, ambulatory subject supports the diagnosis of Diabetes Mellitus. ADA recommended reference range Performed By: #### H S TROP, CBC, BMP, BNP, DDIMER, PT, PTT ####[place] [id number] [facility] Potassium [Moles/Vol] 3.9 mmol/L Normal 3.5-5.1 [facility] Comment on above: Performed By: #### H S TROP, CBC, BMP, BNP, DDIMER, PT, PTT ####[place] [id number] [facility] Sodium [Moles/Vol] 140 mmol/L Normal 136-145 [facility] Comment on above: Performed By: #### H S TROP, CBC, BMP, BNP, DDIMER, PT, PTT ####[place] [id number] [place] Urea nitrogen [Mass/Vol] 11 mg/dL Normal 7-25 [facility] Comment on above: Performed By: #### H S TROP, CBC, BMP, BNP, DDIMER, PT, PTT ####[facility] [address] [place] [address] [place] Basophils Auto (Bld) [#/Vol] Ordered By: Lisha Silva on 12-08-2022 Basophils (Bld) [#/Vol] 0.2 10*3/uL 0.0-0.2 [facility] Basophils/100 WBC Auto (Bld) Ordered By: Lisha Silva on 12-08-2022 Basophils/100 WBC (Bld) 2.6 % . [facility] Bilirubin Test strip Ql (U)O rdered By: Lisha Silva on 12-08-2022 Bilirubin Ql (U) Negative Negative [facility] CT angio chest PE protocolon 12-08-2022 CT angio chest PE protocol Normal [facility] Calcium [Mass/volume] in Ser um or PlasmaOrdered By: Lisha Silva on 12-08-2022 Calcium [Mass/Vol] 8.6 mg/dL 8.6-10.3 [facility] Carbon dioxide, total [Moles /volume] in Serum or PlasmaOrdered By: Lisha Silva on 12-08-2022 CO2 [Moles/Vol] 28.0 mmol/L 21.0-31.0 [facility] Chloride [Moles/volume] in S thang or PlasmaOrdered By: Lisha Silva on 12-08-2022 Chloride [Moles/Vol] 105 mmol/L 98-107 [facility] Color Auto (U)Ordered By: Khadijah Silva on 12-08-2022 Color (U) Yellow Yellow [facility] Complete Blood Count Auto Di ffon 12-08-2022 Basophils (Bld) [#/Vol] 0.2 10*3/uL Normal 0.0-0.2 [facility] Comment on above: Result Comment: PERF ORMED BY:[facility] [place], [place] [phone] MEDICAL DIRECTORNATI LAUREN M.D. Performed By: #### H S TROP, CBC, BMP, BNP, DDIMER, PT, PTT ####[address] Basophils/100 WBC (Bld) 2.6 % Normal . [facility] Comment on above: Performed By: #### H S TROP, CBC, BMP, BNP, DDIMER, PT, PTT ####[address] Eosinophils (Bld) [#/Vol] 0.3 10*3/uL Normal 0.0-0.45 [facility] Comment on above: Performed By: #### H S TROP, CBC, BMP, BNP, DDIMER, PT, PTT ####[address] Eosinophils/100 WBC (Bld) 3.8 % Normal . [facility] Comment on above: Performed By: #### H S TROP, CBC, BMP, BNP, DDIMER, PT, PTT ####[address] Erythrocyte distribution width (RBC) [Ratio] 14.8 % Normal 12.0-14.8 [facility] Comment on above: Performed By: #### H S TROP, CBC, BMP, BNP, DDIMER, PT, PTT ####[address] Hematocrit (Bld) [Volume fraction] 35.8 % Low 38.8-50.0 [facility] Comment on above: Performed By: #### H S TROP, CBC, BMP, BNP, DDIMER, PT, PTT ####[address] Hemoglobin (Bld) [Mass/Vol] 12.0 g/dL Low 13.0-17.0 [facility] Comment on above: Performed By: #### H S TROP, CBC, BMP, BNP, DDIMER, PT, PTT ####[address] Lymphocytes (Bld) [#/Vol] 3.7 10*3/uL Normal 1.00-4.8 [facility] Comment on above: Performed By: #### H S TROP, CBC, BMP, BNP, DDIMER, PT, PTT ####[address] Lymphocytes/100 WBC (Bld) 48.0 % Normal . [facility] Comment on above: Performed By: #### H S TROP, CBC, BMP, BNP, DDIMER, PT, PTT ####[address] MCH (RBC) [Entitic mass] 30.4 pg Normal 27.5-35.2 [facility] Comment on above: Performed By: #### H S TROP, CBC, BMP, BNP, DDIMER, PT, PTT ####[address] MCV (RBC) [Entitic vol] 90.4 fL Normal 83.5-101 [facility] Comment on above: Performed By: #### H S TROP, CBC, BMP, BNP, DDIMER, PT, PTT ####[address] Mean Corpuscular HGB Conc 33.6 g/dL Normal 32.5-35.6 [facility] Comment on above: Performed By: #### H S TROP, CBC, BMP, BNP, DDIMER, PT, PTT ####[address] Monocytes (Bld) [#/Vol] 0.7 10*3/uL Normal 0.0-0.8 [facility] Comment on above: Performed By: #### H S TROP, CBC, BMP, BNP, DDIMER, PT, PTT ####[address] Monocytes/100 WBC (Bld) 21.84 % High 0.00-20.00 [facility] Comment on above: Result Comment: For adults in ED, MDW > 20.0 may be associated with a higher risk of sepsis during the first 12 hrs of hospital admission Performed By: #### H S TROP, CBC, BMP, BNP, DDIMER, PT, PTT ####[address] Monocytes/100 WBC (Bld) 9.6 % Normal . [facility] Comment on above: Performed By: #### H S TROP, CBC, BMP, BNP, DDIMER, PT, PTT ####[address] Neutrophils (Bld) [#/Vol] 2.7 10*3/uL Normal 1.8-7.7 [facility] Comment on above: Performed By: #### H S TROP, CBC, BMP, BNP, DDIMER, PT, PTT ####[address] Neutrophils/100 WBC (Bld) 36.0 % Normal . [facility] Comment on above: Performed By: #### H S TROP, CBC, BMP, BNP, DDIMER, PT, PTT ####[address] NRBC% 0.1 /100{WBC} Normal 0-0.5 [facility] Comment on above: Performed By: #### H S TROP, CBC, BMP, BNP, DDIMER, PT, PTT ####[address] Platelet mean volume (Bld) [Entitic vol] 7.6 fL Normal 6.6-10.1 [facility] Comment on above: Performed By: #### H S TROP, CBC, BMP, BNP, DDIMER, PT, PTT ####[address] Platelets (Bld) [#/Vol] 299 10*3/uL Normal 150-450 [facility] Comment on above: Performed By: #### H S TROP, CBC, BMP, BNP, DDIMER, PT, PTT ####[address] RBC (Bld) [#/Vol] 3.96 10*6/uL Normal 3.90-5.60 [facility] Comment on above: Performed By: #### H S TROP, CBC, BMP, BNP, DDIMER, PT, PTT ####[facility] [place] [address] [facility] WBC (Bld) [#/Vol] 7.6 10*3/uL Normal 4.1-10.5 [facility] Comment on above: Performed By: #### H S TROP, CBC, BMP, BNP, DDIMER, PT, PTT ####[facility] [place] [address] [facility] Creatinine [Mass/volume] in Serum or PlasmaOrdered By: Lisha Silva on 12-08-2022 Creatinine [Mass/Vol] 0.53 mg/dL 0.70-1.30 [facility] D-Dimer High Sensitivityon 0 12-08-2022 D-Dimer High Sensitivity 435 ng/mL High 0-243 [facility] Comment on above: Result Comment: The reference [...] in hospitalized patients due to co-morbid conditions.PERFORMED BY:[address] [place], [place] [phone] MEDICAL ALEKSANDAR LAUREN M.D. Performed By: #### H S TROP, CBC, BMP, BNP, DDIMER, PT, PTT ####[facility] [place] [address] [facility] Dipstick and Microscopicon 0 12-08-2022 Appearance (U) Clear Normal Clear [facility] Comment on above: Order Comment: Name Collection Type:: Clean-Voided Midstream Performed By: #### A DDONUAPLUS ####[address] [place] [address] [place] Bacteria,Urine None Seen Normal None Seen [facility] Comment on above: Order Comment: Name Collection Type:: Clean-Voided Midstream Performed By: #### A DDONUAPLUS ####[address] [address] [place] Bilirubin,Urine Negative Normal Negative [facility] Comment on above: Order Comment: Name Collection Type:: Clean-Voided Midstream Performed By: #### A DDONUAPLUS ####[address] [address] [place] Color (U) Yellow Normal Yellow [facility] Comment on above: Order Comment: Name Collection Type:: Clean-Voided Midstream Performed By: #### A DDONUAPLUS ####[address] [address] [facility] Glucose Ql (U) Normal Normal Normal [facility] Comment on above: Order Comment: Name Collection Type:: Clean-Voided Midstream Performed By: #### A DDONUAPLUS ####[address] [address] [place] Hyaline Casts,Urine 0-8 Normal 0-8 [facility] Comment on above: Order Comment: Name Collection Type:: Clean-Voided Midstream Result Comment: PERF ORMED BY:[address] [place], [place] [phone] MEDICAL ALEKSANDAR LAUREN M.D. Performed By: #### A DDONUAPLUS ####[address] [address] [place] Ketones Ql (U) Negative Normal Negative [facility] Comment on above: Order Comment: Name Collection Type:: Clean-Voided Midstream Performed By: #### A DDONUAPLUS ####[address] [address] [facility] Leukocyte esterase Test strip Ql (U) Negative Normal Negative [facility] Comment on above: Order Comment: Name Collection Type:: Clean-Voided Midstream Performed By: #### A DDONUAPLUS ####[address] [address] [facility] Nitrite,Urine Negative Normal Negative [facility] Comment on above: Order Comment: Name Collection Type:: Clean-Voided Midstream Performed By: #### A DDONUAPLUS ####[address] [address] [facility] Occult Blood,Urine Trace High Negative [facility] Comment on above: Order Comment: Name Collection Type:: Clean-Voided Midstream Result Comment: PERF ORMED BY:[address] [place], [place] [phone] MEDICAL DIRECTORNATI LAUREN M.D. Performed By: #### A DDONUAPLUS ####[address] [address] [facility] pH (U) 6.5 [pH] Normal 5.0-9.0 [facility] Comment on above: Order Comment: Name Collection Type:: Clean-Voided Midstream Performed By: #### A DDONUAPLUS ####[address] [address] [facility] Protein,Urine Negative Normal Negative [facility] Comment on above: Order Comment: Name Collection Type:: Clean-Voided Midstream Performed By: #### A DDONUAPLUS ####[address] [address] [facility] RBC,Urine 1-2 Normal 0-4 [facility] Comment on above: Order Comment: Name Collection Type:: Clean-Voided Midstream Performed By: #### A DDONUAPLUS ####[address] [address] [facility] Specificy [place],Urine 1.040 High 1.001-1.03 0 [facility] Comment on above: Order Comment: Name Collection Type:: Clean-Voided Midstream Performed By: #### A DDONUAPLUS ####[address] [address] [facility] Squamous Epithelial Cell,Urine None Seen Normal 0-2 [facility] Comment on above: Order Comment: Name Collection Type:: Clean-Voided Midstream Performed By: #### A DDONUAPLUS ####[facility] [id number] Urobilinogen,Urine Normal Normal Normal [facility] Comment on above: Order Comment: Name Collection Type:: Clean-Voided Midstream Performed By: #### A DDONUAPLUS ####[facility] [id number] WBC,Urine None Seen Normal 0-4 [facility] Comment on above: Order Comment: Name Collection Type:: Clean-Voided Midstream Performed By: #### A DDONUAPLUS ####[address] [place] [address] ECG 12 lead ECGon 12-08-2022 ECG 12 lead ECG Normal [facility] Eosinophils Auto (Bld) [#/Vo l]Ordered By: Lisha Silva on 12-08-2022 Eosinophils (Bld) [#/Vol] 0.3 10*3/uL 0.0-0.45 [facility] Eosinophils/100 WBC Auto (Bl d)Ordered By: Lisha iSlva on 12-08-2022 Eosinophils/100 WBC (Bld) 3.8 % . [facility] Erythrocyte distribution wid th Auto (RBC) [Ratio]Ordered By: Lisha Silva on 12-08-2022 Erythrocyte distribution width (RBC) [Ratio] 14.8 % 12.0-14.8 [facility] Glucose [Mass/volume] in Ser um or PlasmaOrdered By: Lisha Silva on 12-08-2022 Glucose [Mass/Vol] 99 mg/dL 70-100 [facility] Comment on above: ADA recommended refe rence rangeRandom Glucose Reference Range is dependent on time and content of last meal. Glucose of more than 200 mg/dL in a nonstressed, ambulatory subject supports the diagnosis of Diabetes Mellitus. Hematocrit Auto (Bld) [Volum e fraction]Ordered By: Lisha Silva on 12-08-2022 Hematocrit (Bld) [Volume fraction] 35.8 % 38.8-50.0 [facility] Hemoglobin [Mass/volume] in BloodOrdered By: Lisha Silva on 12-08-2022 Hemoglobin (Bld) [Mass/Vol] 12.0 g/dL 13.0-17.0 [facility] Ketones Auto test strip (U) [Mass/Vol]Ordered By: Lisha Silva on 12-08-2022 Ketones (U) [Mass/Vol] Negative Negative [facility] - CoagulationOrde red By: Lisha Silva on 12-08-2022 PT Coag (PPP) [Time] 12.6 s 9.0-12.9 [facility] - UrinalysisOrder ed By: Lisha Silva on 12-08-2022 Hyaline casts LM Ql (Urine sed) 0-8 [LPF] 0-8 [facility] Leukocytes [#/volume] correc wiliam for nucleated erythrocytes in Blood by Automated counOrdered By: Lisha Silva on 12-08-2022 WBC corrected for nucl RBC Auto (Bld) [#/Vol] 7.6 10*3/uL 4.1-10.5 [facility] Lymphocytes Auto (Bld) [#/Vo l]Ordered By: Lisha Silva on 12-08-2022 Lymphocytes (Bld) [#/Vol] 3.7 10*3/uL 1.00-4.8 [facility] Lymphocytes/100 WBC Auto (Bl d)Ordered By: Lisha Silva on 12-08-2022 Lymphocytes/100 WBC (Bld) 48.0 % . [facility] MCH Auto (RBC) [Entitic mass ]Ordered By: Lisha Silva on 12-08-2022 MCH (RBC) [Entitic mass] 30.4 pg 27.5-35.2 [facility] MCHC Auto (RBC) [Mass/Vol]Or dered By: Lisha Silva on 12-08-2022 MCHC (RBC) [Mass/Vol] 33.6 g/dL 32.5-35.6 [facility] MCV Auto (RBC) [Entitic vol] Ordered By: Lisha Silva on 12-08-2022 MCV (RBC) [Entitic vol] 90.4 fL 83.5-101 [facility] Monocyte distribution width [Entitic volume] in Blood by AutomatedOrdered By: Lisha Silva on 12-08-2022 Monocyte distribution width Auto (Bld) [Entitic vol] 21.84 % 0.00-20.00 [facility] Comment on above: For adults in ED, MD W > 20.0 may be associated with a higher risk of sepsis during the first 12 hrs of hospital admission Monocytes Auto (Bld) [#/Vol] Ordered By: Lisha Silva on 12-08-2022 Monocytes (Bld) [#/Vol] 0.7 10*3/uL 0.0-0.8 [facility] Monocytes/100 WBC Auto (Bld) Ordered By: Lisha Silva on 12-08-2022 Monocytes/100 WBC (Bld) 9.6 % . [facility] Natriuretic peptide B [Mass/ Vol]Ordered By: Lisha Silva on 12-08-2022 Natriuretic peptide B (Bld) [Mass/Vol] 22.0 pg/mL 5-100 [facility] Neutrophils Auto (Bld) [#/Vo l]Ordered By: Lisha Silva on 12-08-2022 Neutrophils (Bld) [#/Vol] 2.7 10*3/uL 1.8-7.7 [facility] Neutrophils/100 WBC Auto (Bl d)Ordered By: Lisha Silva on 12-08-2022 Neutrophils/100 WBC (Bld) 36.0 % . [facility] Nitrite Test strip Ql (U)Ord ered By: Lisha Silva on 12-08-2022 Nitrite Ql (U) Negative Negative [facility] No Panel InformationOrdered By: Lisha Silva on 12-08-2022 D-Dimer Quantitative (PE/DVT) 435 ng/mL 0-243 [facility] Comment on above: The reference range for [...] 60.0 mL/Min [facility] Creatinine Clearance (Chem 188.22 [facility] Nucleated erythrocytes [Pres ence] in Blood by Automated countOrdered By: Lisha Silva on 12-08-2022 Nucleated RBC Auto Ql (Bld) 0.1 /100{WBC} 0-0.5 [facility] Partial Thromboplastin Timeo n 12-08-2022 aPTT Coag (Bld) [Time] 23.5 s Low 25.1-36.5 [facility] Comment on above: Performed By: #### H S TROP, CBC, BMP, BNP, DDIMER, PT, PTT ####[facility] [id number] [address] Platelet mean volume Auto (B ld) [Entitic vol]Ordered By: Lisha Silva on 12-08-2022 Platelet mean volume (Bld) [Entitic vol] 7.6 fL 6.6-10.1 [facility] Platelet poor plasma interna tional normalized ratio (INR) by coagulation assay (relatOrdered By: Lisha Silva on 12-08-2022 INR Coag (PPP) [Relative time] 1.1 {INR} [facility] Comment on above: INR Therapeutic Rang e [...] 10*3/uL 150-450 [facility] Potassium [Moles/volume] in Serum or PlasmaOrdered By: Lisha Silva on 12-08-2022 Potassium [Moles/Vol] 3.9 mmol/L 3.5-5.1 [facility] Protein Auto test strip (U) [Mass/Vol]Ordered By: Lisha Silva on 12-08-2022 Protein (U) [Mass/Vol] Negative Negative [facility] Prothrombin Time INRon 12-08 INR Coag (PPP) [Relative time] 1.1 {INR} Normal [facility] Comment on above: Result Comment: INR Therapeutic [...] TROP, CBC, BMP, BNP, DDIMER, PT, PTT ####[facility] [id number] [address] PT Coag (PPP) [Time] 12.6 s Normal 9.0-12.9 [facility] Comment on above: Performed By: #### H S TROP, CBC, BMP, BNP, DDIMER, PT, PTT ####[facility] [id number] [address] RBC Auto (Bld) [#/Vol]Ordere d By: Lisha Silva on 12-08-2022 RBC (Bld) [#/Vol] 3.96 10*6/uL 3.90-5.60 [facility] Serum or plasma anion gap de terminationOrdered By: Lisha Silva on 12-08-2022 Anion gap [Moles/Vol] 10.9 mmol/L 6.0-15.0 [facility] Sodium [Moles/volume] in Ser um or PlasmaOrdered By: Lisha Silva on 12-08-2022 Sodium [Moles/Vol] 140 mmol/L 136-145 [facility] Specific gravity Auto test s trip (U) [Rel density]Ordered By: Lisha Silva on 12-08-2022 Specific gravity (U) [Rel density] 1.040 1.001-1.03 0 [facility] Squamous epithelial cells de tection in urine sediment by light microscopyOrdered By: Lisha Silva on 12-08-2022 Epithelial cells.squamous LM Ql (Urine sed) None seen [HPF] 0-2 [facility] Troponin I High Sensitivityo n 12-08-2022 Troponin I High Sensitivity 3.7 pg/mL Normal 0.0-20.0 [facility] Comment on above: Result Comment: PERF ORMED BY:[facility] [place], [place] [phone] MEDICAL DIRECTORNATI LAUREN M.D. Performed By: #### H S TROP, CBC, BMP, BNP, DDIMER, PT, PTT ####[facility] [place] [address] [facility] Troponin I.cardiac [Mass/vol ume] in Serum or Plasma by Detection limit <= 0.01 ng/Ordered By: Lisha Silva on 12-08-2022 Troponin I.cardiac DL <= 0.01 ng/mL [Mass/Vol] 3.7 pg/mL 0.0-20.0 [facility] Urea nitrogen [Mass/volume] in Serum or PlasmaOrdered By: Lisha Silva on 12-08-2022 Urea nitrogen [Mass/Vol] 11 mg/dL 7-25 [facility] Urine bacteria detection by automated methodOrdered By: Lisha Silva on 12-08-2022 Bacteria Auto Ql (U) None seen None Seen [facility] Urine clarity by refractomet ry automatedOrdered By: Lisha Silva on 12-08-2022 Clarity Refractometry automated (U) Clear Clear [facility] Urine glucose measurement by automated test strip (mass/volume)Ordered By: Lisha Silva on 12-08-2022 Glucose Auto test strip (U) [Mass/Vol] Normal mg/dL Normal [facility] Urine hemoglobin detection b y automated test stripOrdered By: Lisha Silva on 12-08-2022 Hemoglobin Auto test strip Ql (U) Trace Negative [facility] Urine leukocyte esterase det ection by automated test stripOrdered By: Lisha Silva on 12-08-2022 Leukocyte esterase Auto test strip Ql (U) Negative Negative [facility] Urobilinogen Auto test strip (U) [Mass/Vol]Ordered By: Lisha Silva on 12-08-2022 Urobilinogen (U) [Mass/Vol] Normal mg/dL Normal [facility] WBC Auto (Bld) [#/Vol]Ordere d By: Lisha Silva on 12-08-2022 WBC (Bld) [#/Vol] 7.6 10*3/uL 4.1-10.5 [facility] pH Auto test strip (U)Ordere d By: Lisha Silva on 12-08-2022 pH (U) 6.5 [pH] 5.0-9.0 [facility] Alanine aminotransferase [En zymatic activity/volume] in Serum or PlasmaOrdered By: Shant Villegas on 11-21-2022 ALT [Catalytic activity/Vol] 40 U/L 7-52 [facility] Albumin [Mass/volume] in Ser um or Plasma by Bromocresol green (BCG) dye binding methoOrdered By: Shant Villegas on 11-21-2022 Albumin BCG dye [Mass/Vol] 2.3 g/dL 3.5-5.7 [facility] Alkaline phosphatase [Enzyma tic activity/volume] in Serum or PlasmaOrdered By: Shant Villegas on 11-21-2022 ALP [Catalytic activity/Vol] 110 U/L 34-104 [facility] Aspartate aminotransferase [ Enzymatic activity/volume] in Serum or PlasmaOrdered By: Shant Villegas on 11-21-2022 AST [Catalytic activity/Vol] 25 U/L 13-39 [facility] Basophils Auto (Bld) [#/Vol] Ordered By: Evi Gay on 11-21-2022 Basophils (Bld) [#/Vol] 0.1 10*3/uL 0.0-0.2 [facility] Basophils/100 WBC Auto (Bld) Ordered By: Evi Gay on 11-21-2022 Basophils/100 WBC (Bld) 1.4 % . [facility] Bilirubin.total [Mass/volume ] in Serum or PlasmaOrdered By: Shant Villegas on 11-21-2022 Bilirubin [Mass/Vol] 0.4 mg/dL 0.3-1.0 [facility] Calcium [Mass/volume] in Ser um or PlasmaOrdered By: Shant Villegas on 11-21-2022 Calcium [Mass/Vol] 8.1 mg/dL 8.6-10.3 [facility] Carbon dioxide, total [Moles /volume] in Serum or PlasmaOrdered By: Shant Villegas on 11-21-2022 CO2 [Moles/Vol] 31.0 mmol/L 21.0-31.0 [facility] Chloride [Moles/volume] in S thang or PlasmaOrdered By: Shant Villegas on 11-21-2022 Chloride [Moles/Vol] 105 mmol/L 98-107 [facility] Complete Blood Count Auto Di ffon 11-21-2022 Basophils (Bld) [#/Vol] 0.1 10*3/uL Normal 0.0-0.2 [facility] Comment on above: Result Comment: PERF ORMED BY:[address] [place], [place] [phone] MEDICAL DIRECTORNATI LAUREN M.D. Performed By: #### C BC ####[address] [place] [id number] [facility] Basophils/100 WBC (Bld) 1.4 % Normal . [facility] Comment on above: Performed By: #### C BC ####[facility] [place] [address] [facility] Eosinophils (Bld) [#/Vol] 0.3 10*3/uL Normal 0.0-0.45 [facility] Comment on above: Performed By: #### C BC ####[address] [address] [facility] Eosinophils/100 WBC (Bld) 3.7 % Normal . [facility] Comment on above: Performed By: #### C BC ####[address] [address] [facility] Erythrocyte distribution width (RBC) [Ratio] 13.8 % Normal 12.0-14.8 [facility] Comment on above: Performed By: #### C BC ####[address] [address] [facility] Hematocrit (Bld) [Volume fraction] 25.0 % Low 38.8-50.0 [facility] Comment on above: Performed By: #### C BC ####[address] [address] [facility] Hemoglobin (Bld) [Mass/Vol] 8.4 g/dL Low 13.0-17.0 [facility] Comment on above: Performed By: #### C BC ####[address] [address] [facility] Lymphocytes (Bld) [#/Vol] 2.2 10*3/uL Normal 1.00-4.8 [facility] Comment on above: Performed By: #### C BC ####[place] [id number] [facility] Lymphocytes/100 WBC (Bld) 28.3 % Normal . [facility] Comment on above: Performed By: #### C BC ####[address] [address] [facility] MCH (RBC) [Entitic mass] 30.2 pg Normal 27.5-35.2 [facility] Comment on above: Performed By: #### C BC ####[address] [address] [facility] MCV (RBC) [Entitic vol] 89.8 fL Normal 83.5-101 [facility] Comment on above: Performed By: #### C BC ####[place] [id number] [facility] Mean Corpuscular HGB Conc 33.6 g/dL Normal 32.5-35.6 [facility] Comment on above: Performed By: #### C BC ####[address] [address] [facility] Monocytes (Bld) [#/Vol] 0.8 10*3/uL Normal 0.0-0.8 [facility] Comment on above: Performed By: #### C BC ####[address] [address] [facility] Monocytes/100 WBC (Bld) 10.5 % Normal . [facility] Comment on above: Performed By: #### C BC ####[place] [id number] [facility] Neutrophils (Bld) [#/Vol] 4.4 10*3/uL Normal 1.8-7.7 [facility] Comment on above: Performed By: #### C BC ####[place] [id number] [facility] Neutrophils/100 WBC (Bld) 56.1 % Normal . [facility] Comment on above: Performed By: #### C BC ####[place] [id number] [facility] NRBC% 0.2 /100{WBC} Normal 0-0.5 [facility] Comment on above: Performed By: #### C BC ####[place] [id number] [facility] Platelet mean volume (Bld) [Entitic vol] 7.2 fL Normal 6.6-10.1 [facility] Comment on above: Performed By: #### C BC ####[place] [id number] [facility] Platelets (Bld) [#/Vol] 486 10*3/uL High 150-450 [facility] Comment on above: Performed By: #### C BC ####[place] [id number] [facility] RBC (Bld) [#/Vol] 2.78 10*6/uL Low 3.90-5.60 [facility] Comment on above: Performed By: #### C BC ####[place] [id number] [facility] WBC (Bld) [#/Vol] 7.9 10*3/uL Normal 4.1-10.5 [facility] Comment on above: Performed By: #### C BC ####[address] [place] [address] [facility] Comprehensive Metabolic Pane tiago 11-21-2022 Albumin [Mass/Vol] 2.3 g/dL Low 3.5-5.7 [facility] Comment on above: Performed By: #### C MP, MG ####[address] [address] [facility] Albumin/Globulin [Mass ratio] 0.7 {ratio} Normal [facility] Comment on above: Performed By: #### C MP, MG ####[address] [address] [facility] ALP [Catalytic activity/Vol] 110 U/L High 34-104 [facility] Comment on above: Performed By: #### C MP, MG ####[address] [address] [facility] ALT [Catalytic activity/Vol] 40 U/L Normal 7-52 [facility] Comment on above: Performed By: #### C MP, MG ####[address] [address] [facility] Anion gap [Moles/Vol] 8.7 mmol/L Normal 6.0-15.0 [facility] Comment on above: Performed By: #### C MP, MG ####[address] [id number] [facility] AST [Catalytic activity/Vol] 25 U/L Normal 13-39 [facility] Comment on above: Performed By: #### C MP, MG ####[address] [address] [facility] Bilirubin [Mass/Vol] 0.4 mg/dL Normal 0.3-1.0 [facility] Comment on above: Performed By: #### C MP, MG ####[address] [address] [facility] Calcium [Mass/Vol] 8.1 mg/dL Low 8.6-10.3 [facility] Comment on above: Performed By: #### C MP, MG ####[place] [address] Chloride [Moles/Vol] 105 mmol/L Normal 98-107 [facility] Comment on above: Performed By: #### C MP, MG ####[address] CO2 [Moles/Vol] 31.0 mmol/L Normal 21.0-31.0 [facility] Comment on above: Performed By: #### C MP, MG ####[address] Creatinine [Mass/Vol] 0.43 mg/dL Low 0.70-1.30 [facility] Comment on above: Performed By: #### C MP, MG ####[address] Creatinine Clr Calc Pharmacy 231.99 [facility] Comment on above: Performed By: #### C MP, MG ####[address] GFR/1.73 sq M.predicted MDRD (S/P/Bld) [Vol rate/Area] mL/min/{1.73_m2} [facility] Comment on above: Performed By: #### C MP, MG ####[address] Globulin (S) [Mass/Vol] 3.4 g/dL [facility] Comment on above: Performed By: #### C MP, MG ####[address] Glucose [Mass/Vol] 105 mg/dL High 70-100 [facility] Comment on above: Result Comment: [facility] Glucose Reference Range is dependent on time and content of last meal. Glucose of more than 200 mg/dL in a nonstressed, ambulatory subject supports the diagnosis of Diabetes Mellitus. ADA recommended reference range Performed By: #### C MP, MG ####[facility] [id number] [place] [id number] [facility] Potassium [Moles/Vol] 3.7 mmol/L Normal 3.5-5.1 [facility] Comment on above: Performed By: #### C MP, MG ####[facility] [id number] [place] [id number] [facility] Protein [Mass/Vol] 5.7 g/dL Low 6.4-8.9 [facility] Comment on above: Performed By: #### C MP, MG ####[facility] [id number] [place] [id number] [facility] Sodium [Moles/Vol] 141 mmol/L Normal 136-145 [facility] Comment on above: Performed By: #### C MP, MG ####[facility] [id number] [place] [id number] [facility] Urea nitrogen [Mass/Vol] 11 mg/dL Normal 7-25 [facility] Comment on above: Performed By: #### C MP, MG ####[facility] [id number] [place] [id number] [facility] Creatinine [Mass/volume] in Serum or PlasmaOrdered By: Shant Villegas on 11-21-2022 Creatinine [Mass/Vol] 0.43 mg/dL 0.70-1.30 [facility] Eosinophils Auto (Bld) [#/Vo l]Ordered By: Evi Gay on 11-21-2022 Eosinophils (Bld) [#/Vol] 0.3 10*3/uL 0.0-0.45 [facility] Eosinophils/100 WBC Auto (Bl d)Ordered By: Evi Gay on 11-21-2022 Eosinophils/100 WBC (Bld) 3.7 % . [facility] Erythrocyte distribution wid th Auto (RBC) [Ratio]Ordered By: Evi Gay on 11-21-2022 Erythrocyte distribution width (RBC) [Ratio] 13.8 % 12.0-14.8 [facility] Globulin Calc (S) [Mass/Vol] Ordered By: Shant Villegas on 11-21-2022 Globulin (S) [Mass/Vol] 3.4 g/dL [facility] Glucose [Mass/volume] in Ser um or PlasmaOrdered By: Shant Villegas on 11-21-2022 Glucose [Mass/Vol] 105 mg/dL 70-100 [facility] Comment on above: ADA recommended refe rence rangeRandom Glucose Reference Range is dependent on time and content of last meal. Glucose of more than 200 mg/dL in a nonstressed, ambulatory subject supports the diagnosis of Diabetes Mellitus. Hematocrit Auto (Bld) [Volum e fraction]Ordered By: Evi Gay on 11-21-2022 Hematocrit (Bld) [Volume fraction] 25.0 % 38.8-50.0 [facility] Hemoglobin [Mass/volume] in BloodOrdered By: Evi Gay on 11-21-2022 Hemoglobin (Bld) [Mass/Vol] 8.4 g/dL 13.0-17.0 [facility] Leukocytes [#/volume] correc wiliam for nucleated erythrocytes in Blood by Automated counOrdered By: Evi Gay on 11-21-2022 WBC corrected for nucl RBC Auto (Bld) [#/Vol] 7.9 10*3/uL 4.1-10.5 [facility] Lymphocytes Auto (Bld) [#/Vo l]Ordered By: Evi Gay on 11-21-2022 Lymphocytes (Bld) [#/Vol] 2.2 10*3/uL 1.00-4.8 [facility] Lymphocytes/100 WBC Auto (Bl d)Ordered By: Evi Gay on 11-21-2022 Lymphocytes/100 WBC (Bld) 28.3 % . [facility] MCH Auto (RBC) [Entitic mass ]Ordered By: Evi Gay on 11-21-2022 MCH (RBC) [Entitic mass] 30.2 pg 27.5-35.2 [facility] MCHC Auto (RBC) [Mass/Vol]Or dered By: Evi Gay on 11-21-2022 MCHC (RBC) [Mass/Vol] 33.6 g/dL 32.5-35.6 [facility] MCV Auto (RBC) [Entitic vol] Ordered By: Evi Gay on 11-21-2022 MCV (RBC) [Entitic vol] 89.8 fL 83.5-101 [facility] Magnesiumon 11-21-2022 Magnesium [Mass/Vol] 1.8 mg/dL Low 1.9-2.7 [facility] Comment on above: Result Comment: PERF ORMED BY:[facility] [place] [place] [phone] MEDICAL DIRECTORNATI LAUREN M.D. Performed By: #### C MP, MG ####[facility] [place] [address] [address] [facility] Magnesium [Mass/volume] in S thang or PlasmaOrdered By: Shant Villegas on 11-21-2022 Magnesium [Mass/Vol] 1.8 mg/dL 1.9-2.7 [facility] Monocytes Auto (Bld) [#/Vol] Ordered By: Evi Gay on 11-21-2022 Monocytes (Bld) [#/Vol] 0.8 10*3/uL 0.0-0.8 [facility] Monocytes/100 WBC Auto (Bld) Ordered By: Evi Gay on 11-21-2022 Monocytes/100 WBC (Bld) 10.5 % . [facility] Neutrophils Auto (Bld) [#/Vo l]Ordered By: Evi Gay on 11-21-2022 Neutrophils (Bld) [#/Vol] 4.4 10*3/uL 1.8-7.7 [facility] Neutrophils/100 WBC Auto (Bl d)Ordered By: Evi Gay on 11-21-2022 Neutrophils/100 WBC (Bld) 56.1 % . [facility] No Panel InformationOrdered By: Shant Villegas on 11-21-2022 Estimated GFR (CKD-EPI) > 60.0 mL/Min [facility] Pharmacy Creatinine Clearance (Chem 231.99 [facility] Nucleated erythrocytes [Pres ence] in Blood by Automated countOrdered By: Evi Gay on 11-21-2022 Nucleated RBC Auto Ql (Bld) 0.2 /100{WBC} 0-0.5 [facility] Platelet mean volume Auto (B ld) [Entitic vol]Ordered By: Evi Gay on 11-21-2022 Platelet mean volume (Bld) [Entitic vol] 7.2 fL 6.6-10.1 [facility] Platelets Auto (Bld) [#/Vol] Ordered By: Evi Gay on 11-21-2022 Platelets (Bld) [#/Vol] 486 10*3/uL 150-450 [facility] Potassium [Moles/volume] in Serum or PlasmaOrdered By: Shant Villegas on 11-21-2022 Potassium [Moles/Vol] 3.7 mmol/L 3.5-5.1 [facility] Protein [Mass/volume] in Ser um or PlasmaOrdered By: Shant Villegas on 11-21-2022 Protein [Mass/Vol] 5.7 g/dL 6.4-8.9 [facility] RBC Auto (Bld) [#/Vol]Ordere d By: Evi Gay on 11-21-2022 RBC (Bld) [#/Vol] 2.78 10*6/uL 3.90-5.60 [facility] Serum or plasma albumin/glob ulin mass ratioOrdered By: Shant Villegas on 11-21-2022 Albumin/Globulin [Mass ratio] 0.7 {ratio} [facility] Serum or plasma anion gap de terminationOrdered By: Sahnt Villegas on 11-21-2022 Anion gap [Moles/Vol] 8.7 mmol/L 6.0-15.0 [facility] Sodium [Moles/volume] in Ser um or PlasmaOrdered By: Shant Villegas on 11-21-2022 Sodium [Moles/Vol] 141 mmol/L 136-145 [facility] Urea nitrogen [Mass/volume] in Serum or PlasmaOrdered By: Shant Villegas on 11-21-2022 Urea nitrogen [Mass/Vol] 11 mg/dL 7-25 [facility] WBC Auto (Bld) [#/Vol]Ordere d By: Evi Gay on 11-21-2022 WBC (Bld) [#/Vol] 7.9 10*3/uL 4.1-10.5 [facility] Complete Blood Count Auto Di ffon 11-20-2022 Basophils (Bld) [#/Vol] 0.1 10*3/uL Normal 0.0-0.2 [facility] Comment on above: Result Comment: PERF ORMED BY:[address] [place], [place] [id number] MEDICAL DIRECTORNATI LAUREN M.D. Performed By: #### C BC ####[place] [id number] [facility] Basophils/100 WBC (Bld) 1.0 % Normal . [facility] Comment on above: Performed By: #### C BC ####[address] Eosinophils (Bld) [#/Vol] 0.2 10*3/uL Normal 0.0-0.45 [facility] Comment on above: Performed By: #### C BC ####[address] Eosinophils/100 WBC (Bld) 2.2 % Normal . [facility] Comment on above: Performed By: #### C BC ####[place] [id number] [facility] Erythrocyte distribution width (RBC) [Ratio] 13.7 % Normal 12.0-14.8 [facility] Comment on above: Performed By: #### C BC ####[place] [id number] [facility] Hematocrit (Bld) [Volume fraction] 29.6 % Low 38.8-50.0 [facility] Comment on above: Performed By: #### C BC ####[place] [id number] [facility] Hemoglobin (Bld) [Mass/Vol] 9.8 g/dL Low 13.0-17.0 [facility] Comment on above: Performed By: #### C BC ####[place] [id number] [facility] Lymphocytes (Bld) [#/Vol] 1.9 10*3/uL Normal 1.00-4.8 [facility] Comment on above: Performed By: #### C BC ####[address] Lymphocytes/100 WBC (Bld) 18.5 % Normal . [facility] Comment on above: Performed By: #### C BC ####[address] MCH (RBC) [Entitic mass] 29.5 pg Normal 27.5-35.2 [facility] Comment on above: Performed By: #### C BC ####[address] MCV (RBC) [Entitic vol] 89.4 fL Normal 83.5-101 [facility] Comment on above: Performed By: #### C BC ####[address] Mean Corpuscular HGB Conc 33.0 g/dL Normal 32.5-35.6 [facility] Comment on above: Performed By: #### C BC ####[address] Monocytes (Bld) [#/Vol] 1.0 10*3/uL High 0.0-0.8 [facility] Comment on above: Performed By: #### C BC ####[address] Monocytes/100 WBC (Bld) 9.9 % Normal . [facility] Comment on above: Performed By: #### C BC ####[place] [id number] [facility] Neutrophils (Bld) [#/Vol] 6.9 10*3/uL Normal 1.8-7.7 [facility] Comment on above: Performed By: #### C BC ####[place] [id number] [facility] Neutrophils/100 WBC (Bld) 68.4 % Normal . [facility] Comment on above: Performed By: #### C BC ####[place] [address] [place] [address] [facility] NRBC% 0.1 /100{WBC} Normal 0-0.5 [facility] Comment on above: Performed By: #### C BC ####[address] [address] [facility] Platelet mean volume (Bld) [Entitic vol] 7.5 fL Normal 6.6-10.1 [facility] Comment on above: Performed By: #### C BC ####[address] [address] [facility] Platelets (Bld) [#/Vol] 434 10*3/uL Normal 150-450 [facility] Comment on above: Performed By: #### C BC ####[address] [address] [facility] RBC (Bld) [#/Vol] 3.31 10*6/uL Low 3.90-5.60 [facility] Comment on above: Performed By: #### C BC ####[address] [address] [facility] WBC (Bld) [#/Vol] 10.0 10*3/uL Normal 4.1-10.5 [facility] Comment on above: Performed By: #### C BC ####[address] [address] [facility] Comprehensive Metabolic Pane tiago 11-20-2022 Albumin [Mass/Vol] 2.4 g/dL Low 3.5-5.7 [facility] Comment on above: Performed By: #### C MP, MG ####[address] [address] [facility] Albumin/Globulin [Mass ratio] 0.7 {ratio} Normal [facility] Comment on above: Performed By: #### C MP, MG ####[address] [address] [facility] ALP [Catalytic activity/Vol] 118 U/L High 34-104 [facility] Comment on above: Performed By: #### C MP, MG ####[facility] [place] [address] [facility] ALT [Catalytic activity/Vol] 47 U/L Normal 7-52 [facility] Comment on above: Performed By: #### C MP, MG ####[place] [address] [place] [address] [facility] Anion gap [Moles/Vol] 10.6 mmol/L Normal 6.0-15.0 [facility] Comment on above: Performed By: #### C MP, MG ####[place] [address] [place] [address] [facility] AST [Catalytic activity/Vol] 21 U/L Normal 13-39 [facility] Comment on above: Performed By: #### C MP, MG ####[place] [address] [place] [address] [facility] Bilirubin [Mass/Vol] 0.6 mg/dL Normal 0.3-1.0 [facility] Comment on above: Performed By: #### C MP, MG ####[place] [address] [place] [address] [facility] Calcium [Mass/Vol] 8.2 mg/dL Low 8.6-10.3 [facility] Comment on above: Performed By: #### C MP, MG ####[place] [address] [place] [address] [facility] Chloride [Moles/Vol] 100 mmol/L Normal 98-107 [facility] Comment on above: Performed By: #### C MP, MG ####[place] [address] [place] [address] [facility] CO2 [Moles/Vol] 31.8 mmol/L High 21.0-31.0 [facility] Comment on above: Performed By: #### C MP, MG ####[facility] [place] [address] [facility] Creatinine [Mass/Vol] 0.35 mg/dL Low 0.70-1.30 [facility] Comment on above: Performed By: #### C MP, MG ####[facility] [place] [address] [facility] Creatinine Clr Calc Pharmacy 285.02 [facility] Comment on above: Performed By: #### C MP, MG ####[place] [address] [place] [id number] [facility] GFR/1.73 sq M.predicted MDRD (S/P/Bld) [Vol rate/Area] mL/min/{1.73_m2} [facility] Comment on above: Performed By: #### C MP, MG ####[place] [address] [place] [id number] [facility] Globulin (S) [Mass/Vol] 3.6 g/dL [facility] Comment on above: Performed By: #### C MP, MG ####[address] Glucose [Mass/Vol] 89 mg/dL Normal 70-100 [facility] Comment on above: Result Comment: [facility] Glucose Reference Range is dependent on time and content of last meal. Glucose of more than 200 mg/dL in a nonstressed, ambulatory subject supports the diagnosis of Diabetes Mellitus. ADA recommended reference range Performed By: #### C MP, MG ####[place] [id number] [facility] Potassium [Moles/Vol] 3.4 mmol/L Low 3.5-5.1 [facility] Comment on above: Performed By: #### C MP, MG ####[place] [id number] [facility] Protein [Mass/Vol] 6.0 g/dL Low 6.4-8.9 [facility] Comment on above: Performed By: #### C MP, MG ####[place] [id number] [facility] Sodium [Moles/Vol] 139 mmol/L Normal 136-145 [facility] Comment on above: Performed By: #### C MP, MG ####[address] [place] [address] [facility] Urea nitrogen [Mass/Vol] 13 mg/dL Normal 7-25 [facility] Comment on above: Performed By: #### C MP, MG ####[place] [id number] [facility] Magnesiumon 11-20-2022 Magnesium [Mass/Vol] 1.8 mg/dL Low 1.9-2.7 [facility] Comment on above: Result Comment: PERF ORMED BY:[place] [address] [address] [place], [place] [id number] MEDICAL DIRECTORNATI LAUREN M.D. Performed By: #### C MP, MG ####[place] [id number] [facility] XR chest 2V*on 11-20-2022 XR chest 2V* Normal [facility] Complete Blood Count Auto Di ffon 11-19-2022 Basophils (Bld) [#/Vol] 0.1 10*3/uL Normal 0.0-0.2 [facility] Comment on above: Result Comment: PERF ORMED BY:[address] [place], [place] [id number] MEDICAL DIRECTORNATI LAUREN M.D. Performed By: #### C BC ####[address] Basophils/100 WBC (Bld) 1.2 % Normal . [facility] Comment on above: Performed By: #### C BC ####[place] [id number] [facility] Eosinophils (Bld) [#/Vol] 0.2 10*3/uL Normal 0.0-0.45 [facility] Comment on above: Performed By: #### C BC ####[address] Eosinophils/100 WBC (Bld) 2.0 % Normal . [facility] Comment on above: Performed By: #### C BC ####[place] [address] [place] Erythrocyte distribution width (RBC) [Ratio] 13.7 % Normal 12.0-14.8 [facility] Comment on above: Performed By: #### C BC ####[address] Hematocrit (Bld) [Volume fraction] 26.0 % Low 38.8-50.0 [facility] Comment on above: Performed By: #### C BC ####[address] Hemoglobin (Bld) [Mass/Vol] 8.6 g/dL Low 13.0-17.0 [facility] Comment on above: Performed By: #### C BC ####[address] Lymphocytes (Bld) [#/Vol] 2.0 10*3/uL Normal 1.00-4.8 [facility] Comment on above: Performed By: #### C BC ####[address] Lymphocytes/100 WBC (Bld) 16.7 % Normal . [facility] Comment on above: Performed By: #### C BC ####[address] MCH (RBC) [Entitic mass] 29.3 pg Normal 27.5-35.2 [facility] Comment on above: Performed By: #### C BC ####[address] MCV (RBC) [Entitic vol] 89.0 fL Normal 83.5-101 [facility] Comment on above: Performed By: #### C BC ####[address] Mean Corpuscular HGB Conc 32.9 g/dL Normal 32.5-35.6 [facility] Comment on above: Performed By: #### C BC ####[address] Monocytes (Bld) [#/Vol] 1.1 10*3/uL High 0.0-0.8 [facility] Comment on above: Performed By: #### C BC ####[place] [id number] [facility] Monocytes/100 WBC (Bld) 9.6 % Normal . [facility] Comment on above: Performed By: #### C BC ####[address] Neutrophils (Bld) [#/Vol] 8.3 10*3/uL High 1.8-7.7 [facility] Comment on above: Performed By: #### C BC ####[place] [id number] [facility] Neutrophils/100 WBC (Bld) 70.5 % Normal . [facility] Comment on above: Performed By: #### C BC ####[address] NRBC% 0.1 /100{WBC} Normal 0-0.5 [facility] Comment on above: Performed By: #### C BC ####[place] [id number] [facility] Platelet mean volume (Bld) [Entitic vol] 7.6 fL Normal 6.6-10.1 [facility] Comment on above: Performed By: #### C BC ####[place] [id number] [facility] Platelets (Bld) [#/Vol] 451 10*3/uL High 150-450 [facility] Comment on above: Performed By: #### C BC ####[place] [id number] [facility] RBC (Bld) [#/Vol] 2.92 10*6/uL Low 3.90-5.60 [facility] Comment on above: Performed By: #### C BC ####[place] [id number] [facility] WBC (Bld) [#/Vol] 11.8 10*3/uL High 4.1-10.5 [facility] Comment on above: Performed By: #### C BC ####[address] [address] [facility] Comprehensive Metabolic Pane tiago 11-19-2022 Albumin [Mass/Vol] 2.3 g/dL Low 3.5-5.7 [facility] Comment on above: Performed By: #### Jayesh Paige, CMP ####[address] [address] [facility] Albumin/Globulin [Mass ratio] 0.7 {ratio} Normal [facility] Comment on above: Performed By: #### Jayesh Paige, CMP ####[address] [address] [facility] ALP [Catalytic activity/Vol] 139 U/L High 34-104 [facility] Comment on above: Performed By: #### Jayesh Paige, CMP ####[address] [address] [facility] ALT [Catalytic activity/Vol] 59 U/L High 7-52 [facility] Comment on above: Performed By: #### Jayesh Paige, CMP ####[address] [address] [facility] Anion gap [Moles/Vol] 9.2 mmol/L Normal 6.0-15.0 [facility] Comment on above: Performed By: #### Jayesh Paige, CMP ####[address] [address] [facility] AST [Catalytic activity/Vol] 28 U/L Normal 13-39 [facility] Comment on above: Performed By: #### Jayesh Paige, CMP ####[address] [address] [facility] Bilirubin [Mass/Vol] 0.7 mg/dL Normal 0.3-1.0 [facility] Comment on above: Performed By: #### Jayesh Paige, CMP ####[address] [address] [facility] Calcium [Mass/Vol] 8.0 mg/dL Low 8.6-10.3 [facility] Comment on above: Performed By: #### Jayesh Paige, CMP ####[place] [address] [place] [address] [place] Chloride [Moles/Vol] 99 mmol/L Normal 98-107 [facility] Comment on above: Performed By: #### M Royal, CMP ####[place] [address] [place] [address] [facility] CO2 [Moles/Vol] 34.0 mmol/L High 21.0-31.0 [facility] Comment on above: Performed By: #### Jayesh Paige, CMP ####[address] [address] [facility] Creatinine [Mass/Vol] 0.38 mg/dL Low 0.70-1.30 [facility] Comment on above: Performed By: #### Jayesh Paige, CMP ####[address] [address] [facility] Creatinine Clr Calc Pharmacy 284.27 [facility] Comment on above: Performed By: #### Jayesh Paige, CMP ####[place] [address] [place] [address] [facility] GFR/1.73 sq M.predicted MDRD (S/P/Bld) [Vol rate/Area] mL/min/{1.73_m2} [facility] Comment on above: Performed By: #### Jayesh Paige, CMP ####[place] [address] [place] [address] [facility] Globulin (S) [Mass/Vol] 3.5 g/dL [facility] Comment on above: Performed By: #### Jayesh Paige, CMP ####[place] [address] [place] [address] [facility] Glucose [Mass/Vol] 92 mg/dL Normal 70-100 [facility] Comment on above: Result Comment: [place] Glucose Reference Range is dependent on time and content of last meal. Glucose of more than 200 mg/dL in a nonstressed, ambulatory subject supports the diagnosis of Diabetes Mellitus. ADA recommended reference range Performed By: #### Jayesh Paige, CMP ####[place] [address] [place] [address] [facility] Potassium [Moles/Vol] 3.2 mmol/L Low 3.5-5.1 [facility] Comment on above: Performed By: #### M Royal, CMP ####[facility] [place] [address] [facility] Protein [Mass/Vol] 5.8 g/dL Low 6.4-8.9 [facility] Comment on above: Performed By: #### M G, CMP ####[place] [address] [place] [address] [facility] Sodium [Moles/Vol] 139 mmol/L Normal 136-145 [facility] Comment on above: Performed By: #### M Royal, CMP ####[address] [place] [address] [facility] Urea nitrogen [Mass/Vol] 11 mg/dL Normal 7-25 [facility] Comment on above: Performed By: #### M Royal, CMP ####[address] [place] [address] [facility] Magnesiumon 11-19-2022 Magnesium [Mass/Vol] 1.8 mg/dL Low 1.9-2.7 [facility] Comment on above: Result Comment: PERF ORMED BY:[address] [place], [place] [phone] MEDICAL DIRECTORNATI LAUREN M.D. Performed By: #### M Royal, CMP ####[address] [place] [address] [facility] Arterial Blood Gason 023 ABG Base Excess 7.9 mmol/L High -3.0-3.0 [facility] Comment on above: Performed By: #### A BG ####Point of Care testing, ABG Frac Inspired O2 40 % Normal [facility] Comment on above: Performed By: #### A BG ####Point of Care testing, ABG Oxygen Content 7.1 mmol/L Normal 6.6-9.7 [facility] Comment on above: Performed By: #### A BG ####Point of Care testing, ABG Oxygen Saturation 95.6 % Normal 95.0-100.0 [facility] Comment on above: Performed By: #### A BG ####Point of Care testing, ABG PCO2 43.5 mm[Hg] Normal 35.0-45.0 [facility] Comment on above: Performed By: #### A BG ####Point of Care testing, ABG PEEP 6 [facility] Comment on above: Performed By: #### A BG ####Point of Care testing, ABG PH 7.49 High 7.35-7.45 [facility] Comment on above: Performed By: #### A BG ####Point of Care testing, ABG PO2 78.1 mm[Hg] Low 80.0-100.0 [facility] Comment on above: Performed By: #### A BG ####Point of Care testing, ABG TV 500 mL [facility] Comment on above: Performed By: #### A BG ####Point of Care testing, CO2 [Moles/Vol] 33.5 mmol/L High 23.0-27.0 [facility] Comment on above: Performed By: #### A BG ####Point of Care testing, HCO3 (Bld) [Moles/Vol] 32.2 mmol/L High 23.0-29.0 [facility] Comment on above: Performed By: #### A BG ####Point of Care testing, Respiratory Critical [facility] Comment on above: Result Comment: Crit ical Value called on: 11/18/2022 at 05:43PERFORMED BY:[address] [place], [place] [phone] MEDICAL DIRECTORNATI LAUREN M.D. Performed By: #### A BG ####Point of Care testing, Set Respiratory Rate 20 [facility] Comment on above: Performed By: #### A BG ####Point of Care testing, VBG Draw Site Right Radial [facility] Comment on above: Performed By: #### A BG ####Point of Care testing, Ventilator Mode AC Normal [facility] Comment on above: Performed By: #### A BG ####Point of Care testing, Comprehensive Metabolic Pane tiago 11-18-2022 Albumin [Mass/Vol] 2.3 g/dL Low 3.5-5.7 [facility] Comment on above: Performed By: #### T RIG, SCAN CBC, MG, CMP ####[facility] [address] [place] [id number] [facility] Albumin/Globulin [Mass ratio] 0.6 {ratio} [facility] Comment on above: Performed By: #### T RIG, SCAN CBC, MG, CMP ####[address] [place] [id number] [facility] ALP [Catalytic activity/Vol] 169 U/L High 34-104 [facility] Comment on above: Performed By: #### T RIG, SCAN CBC, MG, CMP ####[place] [id number] [facility] ALT [Catalytic activity/Vol] 81 U/L High 7-52 [facility] Comment on above: Performed By: #### T RIG, SCAN CBC, MG, CMP ####[place] [id number] [facility] Anion gap [Moles/Vol] 8.2 mmol/L Normal 6.0-15.0 [facility] Comment on above: Performed By: #### T RIG, SCAN CBC, MG, CMP ####[place] [id number] [facility] AST [Catalytic activity/Vol] 53 U/L High 13-39 [facility] Comment on above: Performed By: #### T RIG, SCAN CBC, MG, CMP ####[place] [id number] [facility] Bilirubin [Mass/Vol] 0.5 mg/dL Normal 0.3-1.0 [facility] Comment on above: Performed By: #### T RIG, SCAN CBC, MG, CMP ####[address] [place] [address] [facility] Calcium [Mass/Vol] 7.9 mg/dL Low 8.6-10.3 [facility] Comment on above: Performed By: #### T RIG, SCAN CBC, MG, CMP ####[facility] [address] [place] [address] [facility] Chloride [Moles/Vol] 95 mmol/L Low 98-107 [facility] Comment on above: Performed By: #### T RIG, SCAN CBC, MG, CMP ####[facility] [address] [place] [address] [facility] CO2 [Moles/Vol] 34.3 mmol/L High 21.0-31.0 [facility] Comment on above: Performed By: #### T RIG, SCAN CBC, MG, CMP ####[place] [id number] [facility] Creatinine [Mass/Vol] 0.39 mg/dL Low 0.70-1.30 [facility] Comment on above: Performed By: #### T RIG, SCAN CBC, MG, CMP ####[place] [id number] [facility] Creatinine Clr Calc Pharmacy 276.98 [facility] Comment on above: Performed By: #### T RIG, SCAN CBC, MG, CMP ####[place] [id number] [facility] GFR/1.73 sq M.predicted MDRD (S/P/Bld) [Vol rate/Area] mL/min/{1.73_m2} [facility] Comment on above: Performed By: #### T RIG, SCAN CBC, MG, CMP ####[place] [id number] [facility] Globulin (S) [Mass/Vol] 3.6 g/dL [facility] Comment on above: Performed By: #### T RIG, SCAN CBC, MG, CMP ####[place] [id number] [facility] Glucose [Mass/Vol] 115 mg/dL High 70-100 [facility] Comment on above: Result Comment: [facility] Glucose Reference Range is dependent on time and content of last meal. Glucose of more than 200 mg/dL in a nonstressed, ambulatory subject supports the diagnosis of Diabetes Mellitus. ADA recommended reference range Performed By: #### T RIG, SCAN CBC, MG, CMP ####[facility] [address] [place] [address] [facility] Potassium [Moles/Vol] 3.5 mmol/L Normal 3.5-5.1 [facility] Comment on above: Performed By: #### T RIG, SCAN CBC, MG, CMP ####[facility] [place] [address] [facility] Protein [Mass/Vol] 5.9 g/dL Low 6.4-8.9 [facility] Comment on above: Performed By: #### T RIG, SCAN CBC, MG, CMP ####[facility] [address] [place] [id number] [facility] Sodium [Moles/Vol] 134 mmol/L Low 136-145 [facility] Comment on above: Performed By: #### T RIG, SCAN CBC, MG, CMP ####[facility] [id number] [place] [id number] [facility] Urea nitrogen [Mass/Vol] 15 mg/dL Normal 7-25 [facility] Comment on above: Performed By: #### T RIG, SCAN CBC, MG, CMP ####[facility] [address] [place] [id number] [facility] Glucose Glucometer (dC) [M ass/Vol]Ordered By: Shant Villegas on 11-18-2022 Glucose [Mass/Vol] 120 mg/dL [facility] Comment on above: Random Glucose Refer ence Range is dependent on time and content of last meal. Glucose of more than 200 mg/dL in a nonstressed, ambulatory subject supports the diagnosis of Diabetes Mellitus. Glucose Poct Glucometerson 0 11-18-2022 Glucose [Mass/Vol] 120 mg/dL Normal [facility] Comment on above: Result Comment: [facility] Glucose Reference Range is dependent on time and content of last meal. Glucose of more than 200 mg/dL in a nonstressed, ambulatory subject supports the diagnosis of Diabetes Mellitus.PERFORMED BY:[facility] [place], [place] [phone] MEDICAL DIRECTORNATI LAUREN M.D. Performed By: #### G BENJAMIN ####Point of Care testing, Hypochromia LM Ql (Bld)Order ed By: Evi Gay on 11-18-2022 Hypochromia Ql (Bld) Moderate [facility] Laboratory - Chemistry and C hemistry - challengeOrdered By: Shant Villegas on 11-18-2022 CO2 [Moles/Vol] 33.5 mmol/L 23.0-27.0 [facility] HCO3 (Bld) [Moles/Vol] 32.2 mmol/L 23.0-29.[address] [facility] Magnesiumon 11-18-2022 Magnesium [Mass/Vol] 1.9 mg/dL Normal 1.9-2.7 [facility] Comment on above: Performed By: #### T RIG, SCAN CBC, MG, CMP ####[facility] [address] [place] [address] [facility] No Panel InformationOrdered By: Shant Villegas on 11-18-2022 Arterial Blood Base Excess 7.9 mmol/L -3.0-3.0 [facility] Arterial Blood Oxygen Content 7.1 mmol/L 6.6-9.7 [facility] Arterial Blood Oxygen Saturation 95.6 % 95.0-100.0 [facility] Arterial Blood Partial Pressure CO2 43.5 mm[Hg] 35.0-45.0 [facility] Arterial Blood Partial Pressure O2 78.1 mm[Hg] 80.0-100.0 [facility] Arterial Blood pH 7.49 7.35-7.45 [facility] Blood Gas Critical Value See comment [facility] Comment on above: Critical Value abdi d on: 11/18/2022 at 05:43 Blood Gas PEEP 6 cmH2O [facility] Blood Gas Sample Site Right radial F [facility] Blood Gas Set Respiration Rate 20 [facility] Blood Gas Tidal Volume 500 mL Fi [facility] Blood Gas Ventilator Mode Ac [facility] FiO2 40 % [facility] Platelet adequacy [Presence] in Blood by Light microscopyOrdered By: Evi Deidra on 11-18-2022 Platelets LM Ql (Bld) Normal Normal [facility] Platelet morphology finding [Identifier] in BloodOrdered By: Evi Deidra on 11-18-2022 Platelet morphology finding Nom (Bld) Normal Normal [facility] Poikilocytosis [Presence] in Blood by Light microscopyOrdered By: Evi Deidra on 11-18-2022 Poikilocytosis LM Ql (Bld) Slight [facility] Polychromasia [Presence] in Blood by Light microscopyOrdered By: Evi Deidra on 11-18-2022 Polychromasia LM Ql (Bld) Moderate [facility] RBC morphologyOrdered By: Antoni lowry Deidra on 11-18-2022 RBC morphology finding Nom (Bld) N/A [facility] Scan and CBCon 11-18-2022 Basophils (Bld) [#/Vol] 0.1 10*3/uL Normal 0.0-0.2 [facility] Comment on above: Performed By: #### T RIG, SCAN CBC, MG, CMP ####[address] Basophils/100 WBC (Bld) 0.7 % Normal . [facility] Comment on above: Performed By: #### T RIG, SCAN CBC, MG, CMP ####[address] Eosinophils (Bld) [#/Vol] 0.2 10*3/uL Normal 0.0-0.45 [facility] Comment on above: Performed By: #### T RIG, SCAN CBC, MG, CMP ####[address] Eosinophils/100 WBC (Bld) 1.6 % Normal . [facility] Comment on above: Performed By: #### T RIG, SCAN CBC, MG, CMP ####[address] Erythrocyte distribution width (RBC) [Ratio] 13.8 % Normal 12.0-14.8 [facility] Comment on above: Performed By: #### T RIG, SCAN CBC, MG, CMP ####[address] Hematocrit (Bld) [Volume fraction] 25.8 % Low 38.8-50.0 [facility] Comment on above: Performed By: #### T RIG, SCAN CBC, MG, CMP ####[address] Hemoglobin (Bld) [Mass/Vol] 8.6 g/dL Low 13.0-17.0 [facility] Comment on above: Performed By: #### T RIG, SCAN CBC, MG, CMP ####[address] Hypochromasia Moderate Normal [facility] Comment on above: Performed By: #### T RIG, SCAN CBC, MG, CMP ####[address] Lymphocytes (Bld) [#/Vol] 1.6 10*3/uL Normal 1.00-4.8 [facility] Comment on above: Performed By: #### T RIG, SCAN CBC, MG, CMP ####[address] Lymphocytes/100 WBC (Bld) 11.6 % Normal . [facility] Comment on above: Performed By: #### T RIG, SCAN CBC, MG, CMP ####[address] MCH (RBC) [Entitic mass] 29.6 pg Normal 27.5-35.2 [facility] Comment on above: Performed By: #### T RIG, SCAN CBC, MG, CMP ####[address] MCV (RBC) [Entitic vol] 89.0 fL Normal 83.5-101 [facility] Comment on above: Performed By: #### T RIG, SCAN CBC, MG, CMP ####[address] Mean Corpuscular HGB Conc 33.3 g/dL Normal 32.5-35.6 [facility] Comment on above: Performed By: #### T RIG, SCAN CBC, MG, CMP ####[address] Monocytes (Bld) [#/Vol] 1.7 10*3/uL High 0.0-0.8 [facility] Comment on above: Performed By: #### T RIG, SCAN CBC, MG, CMP ####[address] Monocytes/100 WBC (Bld) 12.5 % Normal . [facility] Comment on above: Performed By: #### T RIG, SCAN CBC, MG, CMP ####[address] Neutrophils (Bld) [#/Vol] 10.1 10*3/uL High 1.8-7.7 [facility] Comment on above: Performed By: #### T RIG, SCAN CBC, MG, CMP ####[address] Neutrophils/100 WBC (Bld) 73.6 % Normal . [facility] Comment on above: Performed By: #### T RIG, SCAN CBC, MG, CMP ####[address] NRBC% 0.1 /100{WBC} Normal 0-0.5 [facility] Comment on above: Performed By: #### T RIG, SCAN CBC, MG, CMP ####[address] Platelet Estimate Normal Normal Normal [facility] Comment on above: Performed By: #### T RIG, SCAN CBC, MG, CMP ####[address] Platelet mean volume (Bld) [Entitic vol] 7.7 fL Normal 6.6-10.1 [facility] Comment on above: Performed By: #### T RIG, SCAN CBC, MG, CMP ####[address] [place] [place] [address] [facility] Platelet Morphology Normal Normal Normal [facility] Comment on above: Result Comment: PERF ORMED BY:[address] [place], [place] [phone] MEDICAL DIRECTORNATI LAUREN M.D. Performed By: #### T RIG, SCAN CBC, MG, CMP ####[address] [address] [facility] Platelets (Bld) [#/Vol] 418 10*3/uL Normal 150-450 [facility] Comment on above: Performed By: #### T RIG, SCAN CBC, MG, CMP ####[address] [address] [facility] Poikilocytosis Slight Normal [facility] Comment on above: Performed By: #### T RIG, SCAN CBC, MG, CMP ####[address] [address] [facility] Polychromasia Moderate Normal [facility] Comment on above: Performed By: #### T RIG, SCAN CBC, MG, CMP ####[address] [place] [place] [address] [facility] RBC (Bld) [#/Vol] 2.90 10*6/uL Low 3.90-5.60 [facility] Comment on above: Performed By: #### T RIG, SCAN CBC, MG, CMP ####[address] [place] [place] [address] [facility] WBC (Bld) [#/Vol] 13.7 10*3/uL High 4.1-10.5 [facility] Comment on above: Performed By: #### T RIG, SCAN CBC, MG, CMP ####[address] [address] [facility] Triglyceride [Mass/volume] i n Serum or PlasmaOrdered By: Evi Gay on 11-18-2022 Triglyceride [Mass/Vol] 146 mg/dL 0-149 [facility] Comment on above: TRIG ATP III CLASSIF ICATIONTRIG less than 150 mg/dL NormalTRIG 150-199 mg/dL Borderline highTRIG 200-500 mg/dL High TRIG greater than 500 mg/dL Very highStandard traceable to the Center for Disease Conrtrol and Prevention (CDC) test method. Triglycerideson 11-18-2022 Triglyceride [Mass/Vol] 146 mg/dL Normal 0-149 [facility] Comment on above: Result Comment: TRIG ATP III CLASSIFICATION TRIG less than 150 mg/dL Normal TRIG 150-199 mg/dL Borderline high TRIG 200-500 mg/dL High TRIG greater than 500 mg/dL Very high Standard traceable to the Center for Disease Conrtrol and Prevention (CDC) test method.PERFORMED BY:[address] [place], [place] [phone] MEDICAL DIRECTORNATI LAUREN M.D. Performed By: #### T RIG, SCAN CBC, MG, CMP ####[facility] [address] [place] [address] [address] [facility] XR chest 1V portableon 11-18 XR chest 1V portable Normal [facility] Aerobic Cultureon 11-17-2022 Aerobic Culture Normal [facility] Comment on above: Performed By: #### G S, AERC ####[address] [address] [facility] Amylaseon 11-17-2022 Amylase [Catalytic activity/Vol] 16 U/L Low 103 [facility] Comment on above: Order Comment: Comme nt please run off blood drawn this morning Performed By: #### L IPASE, CATRACHITO, HEPATIC ####[address] [address] [facility] Amylase [Enzymatic activity/ volume] in Serum or PlasmaOrdered By: Evi Gay on 11-17-2022 Amylase [Catalytic activity/Vol] 16 U/L 29-103 [facility] Arterial Blood Gason 023 ABG Base Excess 9.9 mmol/L High -3.0-3.0 [facility] Comment on above: Performed By: #### A BG ####Point of Care testing, ABG Frac Inspired O2 30 % [facility] Comment on above: Performed By: #### A BG ####Point of Care testing, ABG Oxygen Content 5.9 mmol/L Low 6.6-9.7 [facility] Comment on above: Performed By: #### A BG ####Point of Care testing, ABG Oxygen Saturation 89.2 % Low 95.0-100.0 [facility] Comment on above: Performed By: #### A BG ####Point of Care testing, ABG PCO2 42.2 mm[Hg] Normal 35.0-45.0 [facility] Comment on above: Performed By: #### A BG ####Point of Care testing, ABG PEEP 10 [facility] Comment on above: Performed By: #### A BG ####Point of Care testing, ABG PH 7.52 High 7.35-7.45 [facility] Comment on above: Performed By: #### A BG ####Point of Care testing, ABG PO2 54.5 mm[Hg] Low 80.0-100.0 [facility] Comment on above: Performed By: #### A BG ####Point of Care testing, ABG TV 500 mL [facility] Comment on above: Performed By: #### A BG ####Point of Care testing, CO2 [Moles/Vol] 35.0 mmol/L High 23.0-27.0 [facility] Comment on above: Performed By: #### A BG ####Point of Care testing, HCO3 (Bld) [Moles/Vol] 33.7 mmol/L High 23.0-29.0 [facility] Comment on above: Performed By: #### A BG ####Point of Care testing, Respiratory Critical [facility] Comment on above: Result Comment: Crit ical Value called on: 11/17/2022 at 04:38PERFORMED BY:[facility] [place], [place] [phone] MEDICAL DIRECTORNATI LAUREN M.D. Performed By: #### A BG ####Point of Care testing, Set Respiratory Rate 20 [facility] Comment on above: Performed By: #### A BG ####Point of Care testing, VBG Draw Site Right Radial [facility] Comment on above: Performed By: #### A BG ####Point of Care testing, Ventilator Mode AC [facility] Comment on above: Performed By: #### A BG ####Point of Care testing, Bacteria identified Aer cx N om (Unsp spec)Ordered By: Sanjay Holt on 11-17-2022 Aerobic Culture Corynebacterium stri atum [facility] Bacterial blood cultureOrder ed By: Sanjay Holt on 11-17-2022 Bacteria identified Cx Nom (Bld) NO GROWTH 5 DAYS [facility] Basic Metabolic Panelon 11-07 Anion gap [Moles/Vol] 9.3 mmol/L Normal 6.0-15.0 [facility] Comment on above: Performed By: #### B KAELYN HAMEED ####[facility] [address] [place] [address] [facility] Calcium [Mass/Vol] 7.8 mg/dL Low 8.6-10.3 [facility] Comment on above: Performed By: #### B DAT HAMEEDNO ####[facility] [address] [place] [address] [place] Chloride [Moles/Vol] 93 mmol/L Low 98-107 [facility] Comment on above: Performed By: #### B YOSEPH CBCNO ####[facility] [address] [place] [address] [place] CO2 [Moles/Vol] 33.7 mmol/L High 21.0-31.0 [facility] Comment on above: Performed By: #### B YOSEPH CBCNO ####[facility] [address] [place] [address] [facility] Creatinine [Mass/Vol] 0.50 mg/dL Low 0.70-1.30 [facility] Comment on above: Performed By: #### B KAELYN HAMEED ####[facility] [place] [address] [place] Creatinine Clr Calc Pharmacy 217.84 [facility] Comment on above: Result Comment: PERF ORMED BY:[address] [place], [place] [phone] MEDICAL DIRECTORNATI LAUREN M.D. Performed By: #### B DAT HAMEEDNO ####[address] [address] [facility] GFR/1.73 sq M.predicted MDRD (S/P/Bld) [Vol rate/Area] mL/min/{1.73_m2} [facility] Comment on above: Performed By: #### B DAT HAMEEDNO ####[address] [address] [facility] Glucose [Mass/Vol] 102 mg/dL High 70-100 [facility] Comment on above: Result Comment: [place] Glucose Reference Range is dependent on time and content of last meal. Glucose of more than 200 mg/dL in a nonstressed, ambulatory subject supports the diagnosis of Diabetes Mellitus. ADA recommended reference range Performed By: #### B KAELYN HAMEED ####[address] [address] [facility] Potassium [Moles/Vol] 4.0 mmol/L Normal 3.5-5.1 [facility] Comment on above: Performed By: #### B DAT HAMEEDNO ####[address] [address] [facility] Sodium [Moles/Vol] 132 mmol/L Low 136-145 [facility] Comment on above: Performed By: #### B DAT HAMEEDNO ####[address] [address] [facility] Urea nitrogen [Mass/Vol] 23 mg/dL Normal 7-25 [facility] Comment on above: Performed By: #### B DAT HAMEEDNO ####[address] [address] [facility] Bilirubin.direct [Mass/volum e] in Serum or PlasmaOrdered By: Evi Gay on 11-17-2022 Bilirubin.direct [Mass/Vol] 0.30 mg/dL 0.03-0.18 [facility] Blood Cultureon 11-17-2022 Bacteria identified Cx Nom (Bld) Comment suctioned NO GROWTH 5 DAYS PERFORMED BY: [facility] [address] [place] [address] PATHOLOGIST [employer] NATI LAUREN M.D. Normal [facility] Comment on above: Performed By: #### C UBLD ####[facility] [address] [place] [address] [facility] Creatine Kinaseon 11-17-2022 CK [Catalytic activity/Vol] 70 U/L Normal [facility] Comment on above: Order Comment: Kirsty nt has CVC LINE DRAW Performed By: #### H S TROP, CK ####[place] [address] [place] [id number] [facility] Creatine kinase [Enzymatic a ctivity/volume] in Serum or PlasmaOrdered By: Evi Gay on 11-17-2022 CK [Catalytic activity/Vol] 70 U/L [facility] ECG 12 lead ECGon 11-17-2022 ECG 12 lead ECG Normal [facility] ECG 12 lead ECG Normal [facility] ECH echo transthoracicon ECH echo transthoracic Normal [facility] Glucose Poct Glucometerson 0 11-17-2022 Commemt1 Glu2: Cleaned Meter Normal [facility] Comment on above: Result Comment: PERF ORMED BY:[facility] [place] [place], [place] [phone] MEDICAL DIRECTORNATI LAUREN M.D. Performed By: #### G LULS ####Point of Care testing, Glucose [Mass/Vol] 106 mg/dL Normal [facility] Comment on above: Result Comment: [place] Glucose Reference Range is dependent on time and content of last meal. Glucose of more than 200 mg/dL in a nonstressed, ambulatory subject supports the diagnosis of Diabetes Mellitus. Performed By: #### G BENJAMIN ####Point of Care testing, Gram Stainon 11-17-2022 Microscopic observation Gram stain Nom (Unsp spec) Comment suctioned Gram Stain Result 4+ Gram Positive Bacilli 3+ White Blood Cells Rare Epithelial Cells PERFORMED BY: [facility] [place] [id number] PATHOLOGIST AIRCRAFT FUSE[employer]AGE FRAMER NATI LAUREN M.D. Normal [facility] Comment on above: Performed By: #### G S, AERC ####[address] Gram stain for investigation of transfusion reactionOrdered By: Sanjay Holt on 11-17-2022 Microscopic observation Gram stain Nom (Unsp spec) [facility] Hemogram CBC Without Diffon 11-17-2022 Erythrocyte distribution width (RBC) [Ratio] 13.7 % Normal 12.0-14.8 [facility] Comment on above: Performed By: #### B YOSEPH CBCNO ####[address] Hematocrit (Bld) [Volume fraction] 28.0 % Low 38.8-50.0 [facility] Comment on above: Performed By: #### B YOSEPH CBCNO ####[address] Hemoglobin (Bld) [Mass/Vol] 9.1 g/dL Low 13.0-17.0 [facility] Comment on above: Performed By: #### B YOSEPH CBCNO ####[place] [id number] [facility] MCH (RBC) [Entitic mass] 29.1 pg Normal 27.5-35.2 [facility] Comment on above: Performed By: #### B YOSEPH CBCNO ####[place] [id number] [facility] MCV (RBC) [Entitic vol] 89.7 fL Normal 83.5-101 [facility] Comment on above: Performed By: #### B YOSEPH CBCNO ####[place] [id number] [facility] Mean Corpuscular HGB Conc 32.4 g/dL Low 32.5-35.6 [facility] Comment on above: Performed By: #### B YOSEPH CBCNO ####[place] [id number] [facility] Platelet mean volume (Bld) [Entitic vol] 7.7 fL Normal 6.6-10.1 [facility] Comment on above: Result Comment: PERF ORMED BY:[address] [place], [place] [phone] MEDICAL DIRECTORNATI LAUREN M.D. Performed By: #### B YOSEPH CBCNO ####[address] Platelets (Bld) [#/Vol] 423 10*3/uL Normal 150-450 [facility] Comment on above: Performed By: #### B YOSEPH CBCNO ####[address] RBC (Bld) [#/Vol] 3.12 10*6/uL Low 3.90-5.60 [facility] Comment on above: Performed By: #### B YOSEPH CBCNO ####[place] [id number] [facility] WBC (Bld) [#/Vol] 20.5 10*3/uL High 4.1-10.5 [facility] Comment on above: Performed By: #### B YOSEPH CBCNO ####[place] [id number] [facility] Hepatic Panelon 11-17-2022 Albumin [Mass/Vol] 2.4 g/dL Low 3.5-5.7 [facility] Comment on above: Order Comment: Comme nt please run off blood drawn this morning Performed By: #### L IPASE, CATRACHITO, HEPATIC ####[place] [id number] [facility] Albumin/Globulin [Mass ratio] 0.7 {ratio} Normal [facility] Comment on above: Order Comment: Comme nt please run off blood drawn this morning Performed By: #### L IPASE, CATRACHITO, HEPATIC ####[facility] [place] [address] [facility] ALP [Catalytic activity/Vol] 170 U/L High 34-104 [facility] Comment on above: Order Comment: Comme nt please run off blood drawn this morning Performed By: #### L IPASE, CATRACHITO, HEPATIC ####[address] [address] [facility] ALT [Catalytic activity/Vol] 64 U/L High 7-52 [facility] Comment on above: Order Comment: Comme nt please run off blood drawn this morning Performed By: #### L IPASE, CATRACHITO, HEPATIC ####[address] [address] [facility] AST [Catalytic activity/Vol] 64 U/L High 13-39 [facility] Comment on above: Order Comment: Comme nt please run off blood drawn this morning Performed By: #### L IPASE, CATRACHITO, HEPATIC ####[place] [address] [place] [address] [facility] Bilirubin [Mass/Vol] 0.6 mg/dL Normal 0.3-1.0 [facility] Comment on above: Order Comment: Comme nt please run off blood drawn this morning Performed By: #### L IPASE, CATRACHITO, HEPATIC ####[address] [address] [facility] Bilirubin,Indirect 0.3 mg/dL Normal [facility] Comment on above: Order Comment: Comme nt please run off blood drawn this morning Performed By: #### L IPASE, CATRACHITO, HEPATIC ####[address] [address] [facility] Bilirubin.indirect [Mass/Vol] 0.30 mg/dL High 0.03-0.18 [facility] Comment on above: Order Comment: Comme nt please run off blood drawn this morning Performed By: #### L IPASE, CATRACHITO, HEPATIC ####[address] [address] [place] Globulin (S) [Mass/Vol] 3.6 g/dL Normal [facility] Comment on above: Order Comment: Comme nt please run off blood drawn this morning Performed By: #### L IPASE, CATRACHITO, HEPATIC ####[place] [address] [place] [address] [facility] Protein [Mass/Vol] 6.0 g/dL Low 6.4-8.9 [facility] Comment on above: Order Comment: Comme nt please run off blood drawn this morning Performed By: #### L IPASE, CATRACHITO, HEPATIC ####[place] [address] [place] [address] [facility] Lipaseon 11-17-2022 Lipase [Catalytic activity/Vol] 12.0 U/L Normal 11.0-82.0 [facility] Comment on above: Order Comment: Comme nt please run off blood drawn this morning Result Comment: PERF ORMED BY:[place] [address] [place], [place] [phone] MEDICAL DIRECTORNATI LAUREN M.D. Performed By: #### L IPA, CATRACHITO, HEPATIC ####[place] [address] [place] [address] [facility] Lipase [Enzymatic activity/v olume] in Serum or PlasmaOrdered By: Evi Gay on 11-17-2022 Lipase [Catalytic activity/Vol] 12.0 U/L 11.0-82.0 [facility] Magnesiumon 11-17-2022 Magnesium [Mass/Vol] 1.9 mg/dL Normal 1.9-2.7 [facility] Comment on above: Result Comment: PERF ORMED BY:[place] [address] [place], [place] [phone] MEDICAL DIRECTORNATI LAUREN M.D. Performed By: #### M G ####[address] [address] [facility] No Panel InformationOrdered By: Shant Villegas on 11-17-2022 Bedside Glucose Comment Glu2: cleaned meter [facility] Serum or plasma non-glucuron idated bilirubin measurement (mass/volume)Ordered By: Evi Gay on 11-17-2022 Bilirubin.indirect [Mass/Vol] 0.3 mg/dL [facility] Thyroid Stimulating Hormoneo n 11-17-2022 TSH Qn 9.27 m[IU]/L High 0.45-5.33 [facility] Comment on above: Order Comment: Comme nt please run off blood drawn today Result Comment: PERF ORMED BY:[place] [address] [place], [place] [phone] MEDICAL DIRECTORNATI LAUREN M.D. Performed By: #### T SH3 ####[address] [address] [facility] Thyrotropin [Units/volume] i n Serum or PlasmaOrdered By: Evi Gay on 11-17-2022 TSH Qn 9.27 m[IU]/L 0.45-5.33 [facility] Troponin I High Sensitivityo n 11-17-2022 Troponin I High Sensitivity 24.1 pg/mL High 0.0-20.0 [facility] Comment on above: Order Comment: Comme nt has CVC LINE DRAW Result Comment: PERF ORMED BY:[place] [address] [place], [place] [phone] MEDICAL DIRECTORNATI LAUREN M.D. Performed By: #### H S TROP, CK ####[place] [address] [place] [address] [facility] Troponin I.cardiac [Mass/vol ume] in Serum or Plasma by Detection limit <= 0.01 ng/Ordered By: Evi Gay on 11-17-2022 Troponin I.cardiac DL <= 0.01 ng/mL [Mass/Vol] 24.1 pg/mL 0.0-20.0 [facility] XR chest 1V portableon 11-17 XR chest 1V portable Normal [facility] Arterial Blood Gason 023 ABG Base Excess 10.9 mmol/L High -3.0-3.0 [facility] Comment on above: Performed By: #### A BG ####Point of Care testing, ABG Frac Inspired O2 50 % Normal [facility] Comment on above: Performed By: #### A BG ####Point of Care testing, ABG Oxygen Content 6.1 mmol/L Low 6.6-9.7 [facility] Comment on above: Performed By: #### A BG ####Point of Care testing, ABG Oxygen Saturation 94.7 % Low 95.0-100.0 [facility] Comment on above: Performed By: #### A BG ####Point of Care testing, ABG PCO2 43.6 mm[Hg] Normal 35.0-45.0 [facility] Comment on above: Performed By: #### A BG ####Point of Care testing, ABG PEEP 10 [facility] Comment on above: Performed By: #### A BG ####Point of Care testing, ABG PH 7.52 High 7.35-7.45 [facility] Comment on above: Performed By: #### A BG ####Point of Care testing, ABG PO2 71.3 mm[Hg] Low 80.0-100.0 [facility] Comment on above: Performed By: #### A BG ####Point of Care testing, ABG TV 500 mL [facility] Comment on above: Performed By: #### A BG ####Point of Care testing, CO2 [Moles/Vol] 36.1 mmol/L High 23.0-27.0 [facility] Comment on above: Performed By: #### A BG ####Point of Care testing, HCO3 (Bld) [Moles/Vol] 34.8 mmol/L High 23.0-29.0 [facility] Comment on above: Performed By: #### A BG ####Point of Care testing, Respiratory Critical [facility] Comment on above: Result Comment: Crit ical Value called on: 11/16/2022 at 04:35PERFORMED BY:[facility] [place], [place] [phone] MEDICAL DIRECTORJIANLAN SUN M.D. Performed By: #### A BG ####Point of Care testing, Set Respiratory Rate 20 [facility] Comment on above: Performed By: #### A BG ####Point of Care testing, VBG Draw Site Left Radial [facility] Comment on above: Performed By: #### A BG ####Point of Care testing, Ventilator Mode AC [facility] Comment on above: Performed By: #### A BG ####Point of Care testing, Automated erythrocytes count in urine sediment (number/area)Ordered By: Sanjay Holt on 11-16-2022 RBC Auto (Urine sed) [#/Area] 50-100 [HPF] 0-4 [facility] Automated leukocytes count i n urine sediment (number/area)Ordered By: Sanjay Holt on 11-16-2022 WBC Auto (Urine sed) [#/Area] 3-4 [HPF] 0-4 [facility] Basic Metabolic Panelon 11-07 Anion gap [Moles/Vol] 8.6 mmol/L Normal 6.0-15.0 [facility] Comment on above: Performed By: #### B MP, TRIG ####[facility] [address] [place] [address] [place] Calcium [Mass/Vol] 7.5 mg/dL Low 8.6-10.3 [facility] Comment on above: Performed By: #### B MP, TRIG ####[facility] [address] [place] [address] [place] Chloride [Moles/Vol] 90 mmol/L Low 98-107 [facility] Comment on above: Performed By: #### B MP, TRIG ####[facility] [address] [place] [address] [place] CO2 [Moles/Vol] 36.7 mmol/L High 21.0-31.0 [facility] Comment on above: Performed By: #### B MP, TRIG ####[facility] Clq[address] [place] [address] [place] Creatinine [Mass/Vol] 0.65 mg/dL Low 0.70-1.30 [facility] Comment on above: Performed By: #### B MP, TRIG ####[facility] [place] [address] [place] Creatinine Clr Calc Pharmacy 167.57 [facility] Comment on above: Performed By: #### B YOSEPH, TRIG ####[facility] [place] [address] [place] GFR/1.73 sq M.predicted MDRD (S/P/Bld) [Vol rate/Area] mL/min/{1.73_m2} [facility] Comment on above: Performed By: #### B YOSEPH, TRIG ####[place] [address] [place] [address] [facility] Glucose [Mass/Vol] 106 mg/dL High 70-100 [facility] Comment on above: Result Comment: [facility] Glucose Reference Range is dependent on time and content of last meal. Glucose of more than 200 mg/dL in a nonstressed, ambulatory subject supports the diagnosis of Diabetes Mellitus. ADA recommended reference range Performed By: #### B YOSEPH, TRIG ####[place] [address] [place] [address] [facility] Potassium [Moles/Vol] 4.3 mmol/L Normal 3.5-5.1 [facility] Comment on above: Performed By: #### B YOSEPH, TRIG ####[place] [address] [place] [address] [facility] Sodium [Moles/Vol] 131 mmol/L Low 136-145 [facility] Comment on above: Performed By: #### B YOSEPH, TRIG ####[address] [address] [facility] Urea nitrogen [Mass/Vol] 32 mg/dL High 7-25 [facility] Comment on above: Performed By: #### B YOSEPH, TRIG ####[place] [address] [place] [address] [facility] Bilirubin Test strip Ql (U)O rdered By: Sanjay Holt on 11-16-2022 Bilirubin Ql (U) Negative Negative [facility] Blood Cultureon 11-16-2022 Bacteria identified Cx Nom (Bld) NO GROWTH 5 DAYS PERFORMED BY: [facility] [address] [place] [address] PATHOLOGIST AIRCRAFT F[employer] FRAMER NATI LAUREN M.D. [facility] Comment on above: Performed By: #### C UBLD ####[address] [address] [facility] Bacteria identified Cx Nom (Bld) NO GROWTH 5 DAYS PERFORMED BY: [facility] [address] [place] [address] PATHOLOGIST [employer]ER NATI LAUREN M.D. [facility] Comment on above: Performed By: #### C UBLD ####[address] [address] [facility] CT angio chest PE protocolon 11-16-2022 CT angio chest PE protocol Normal [facility] Color Auto (U)Ordered By: Stephanie Holt on 11-16-2022 Color (U) Dark yellow Yellow [facility] Dipstick and Microscopicon 0 11-16-2022 Appearance (U) Clear Normal Clear [facility] Comment on above: Order Comment: Name Collection Type:: Earl Catheter Performed By: #### C UU, ADDONUAPLUS ####[address] [address] [facility] Bacteria,Urine None Seen Normal None Seen [facility] Comment on above: Order Comment: Name Collection Type:: Earl Catheter Performed By: #### C UU, ADDONUAPLUS ####[address] [address] [facility] Bilirubin,Urine Negative Normal Negative [facility] Comment on above: Order Comment: Name Collection Type:: Earl Catheter Performed By: #### C UU, ADDONUAPLUS ####[address] [address] [facility] Color (U) Dark Yellow Critically abnormal Yellow [facility] Comment on above: Order Comment: Name Collection Type:: Earl Catheter Performed By: #### C UU, ADDONUAPLUS ####[address] [address] [place] Glucose Ql (U) Normal Normal Normal [facility] Comment on above: Order Comment: Name Collection Type:: Earl Catheter Performed By: #### C UU, ADDONUAPLUS ####[place] [id number] [facility] Hyaline Casts,Urine 0-8 Normal 0-8 [facility] Comment on above: Order Comment: Name Collection Type:: Earl Catheter Result Comment: PERF ORMED BY:[place] [address] [place], [place] [phone] MEDICAL DIRECTORNATI LAUREN M.D. Performed By: #### C UU, ADDONUAPLUS ####[place] [id number] [facility] Ketones Ql (U) Negative Normal Negative [facility] Comment on above: Order Comment: Name Collection Type:: Earl Catheter Performed By: #### C UU, ADDONUAPLUS ####[place] [id number] [facility] Leukocyte esterase Test strip Ql (U) 1+ High Negative [facility] Comment on above: Order Comment: Name Collection Type:: Earl Catheter Performed By: #### C UU, ADDONUAPLUS ####[place] [id number] [facility] Nitrite,Urine Negative Normal Negative [facility] Comment on above: Order Comment: Name Collection Type:: Earl Catheter Performed By: #### C UU, ADDONUAPLUS ####[place] [id number] [facility] Occult Blood,Urine 1+ High Negative [facility] Comment on above: Order Comment: Name Collection Type:: Earl Catheter Result Comment: PERF ORMED BY:[place] [address] [place], [place] [phone] MEDICAL DIRECTORNATI LAUREN M.D. Performed By: #### C UU, ADDONUAPLUS ####[place] [id number] [place] pH (U) 5.5 [pH] Normal 5.0-9.0 [facility] Comment on above: Order Comment: Name Collection Type:: Earl Catheter Performed By: #### C UU, ADDONUAPLUS ####[place] [address] [place] [address] [facility] Protein,Urine Trace High Negative [facility] Comment on above: Order Comment: Name Collection Type:: Earl Catheter Performed By: #### C UU, ADDONUAPLUS ####[address] [address] [facility] RBC,Urine 50-100 High 0-4 [facility] Comment on above: Order Comment: Name Collection Type:: Earl Catheter Performed By: #### C UU, ADDONUAPLUS ####[address] [address] [facility] Specificy [place],Urine 1.022 Normal 1.001-1.03 0 [facility] Comment on above: Order Comment: Name Collection Type:: Earl Catheter Performed By: #### C UU, ADDONUAPLUS ####[address] [address] [facility] Squamous Epithelial Cell,Urine None Seen Normal 0-2 [facility] Comment on above: Order Comment: Name Collection Type:: Earl Catheter Performed By: #### C UU, ADDONUAPLUS ####[address] [address] [facility] Urobilinogen,Urine Normal Normal Normal [facility] Comment on above: Order Comment: Name Collection Type:: Earl Catheter Performed By: #### C UU, ADDONUAPLUS ####[address] [address] [place] WBC,Urine 3-4 Normal 0-4 [facility] Comment on above: Order Comment: Name Collection Type:: Earl Catheter Performed By: #### C UU, ADDONUAPLUS ####[address] [address] [facility] Glucose Poct Glucometerson 0 11-16-2022 Commemt1 Glu2: Cleaned Meter Normal [facility] Comment on above: Result Comment: PERF ORMED BY:[facility] [place], [place] [phone] MEDICAL DIRECTORNATI LAUREN M.D. Performed By: #### G LULS ####Point of Care testing, Glucose [Mass/Vol] 101 mg/dL Normal [facility] Comment on above: Result Comment: [place] Glucose Reference Range is dependent on time and content of last meal. Glucose of more than 200 mg/dL in a nonstressed, ambulatory subject supports the diagnosis of Diabetes Mellitus. Performed By: #### G LULS ####Point of Care testing, Ketones Auto test strip (U) [Mass/Vol]Ordered By: Sanjay Holt on 11-16-2022 Ketones (U) [Mass/Vol] Negative Negative [facility] Laboratory - UrinalysisOrder ed By: Sanjay Holt on 11-16-2022 Hyaline casts LM Ql (Urine sed) 0-8 [LPF] 0-8 [facility] Nitrite Test strip Ql (U)Ord ered By: Sanjay Holt on 11-16-2022 Nitrite Ql (U) Negative Negative [facility] Protein Auto test strip (U) [Mass/Vol]Ordered By: Sanjay Holt on 11-16-2022 Protein (U) [Mass/Vol] Trace mg/dL Negative [facility] Red blood cell stomatocyte d etectionOrdered By: Reginald Arroyo on 11-16-2022 Stomatocytes LM Ql (Bld) Slight [facility] Scan and CBCon 11-16-2022 Basophils (Bld) [#/Vol] 0.2 10*3/uL Normal 0.0-0.2 [facility] Comment on above: Performed By: #### S CAN CBC ####[facility] [address] [place] [id number] [facility] Basophils/100 WBC (Bld) 0.7 % Normal . [facility] Comment on above: Performed By: #### S CAN CBC ####[facility] In[address] Eosinophils (Bld) [#/Vol] 0.2 10*3/uL Normal 0.0-0.45 [facility] Comment on above: Performed By: #### S CAN CBC ####[address] Eosinophils/100 WBC (Bld) 0.8 % Normal . [facility] Comment on above: Performed By: #### S CAN CBC ####[address] Erythrocyte distribution width (RBC) [Ratio] 13.7 % Normal 12.0-14.8 [facility] Comment on above: Performed By: #### S CAN CBC ####[address] Hematocrit (Bld) [Volume fraction] 26.4 % Low 38.8-50.0 [facility] Comment on above: Performed By: #### S CAN CBC ####[address] Hemoglobin (Bld) [Mass/Vol] 8.6 g/dL Low 13.0-17.0 [facility] Comment on above: Performed By: #### S CAN CBC ####[address] Hypochromasia Moderate Normal [facility] Comment on above: Performed By: #### S CAN CBC ####[address] Lymphocytes (Bld) [#/Vol] 1.9 10*3/uL Normal 1.00-4.8 [facility] Comment on above: Performed By: #### S CAN CBC ####[address] Lymphocytes/100 WBC (Bld) 7.8 % Normal . [facility] Comment on above: Performed By: #### S CAN CBC ####[address] MCH (RBC) [Entitic mass] 29.0 pg Normal 27.5-35.2 [facility] Comment on above: Performed By: #### S CAN CBC ####[address] [address] [facility] MCV (RBC) [Entitic vol] 89.5 fL Normal 83.5-101 [facility] Comment on above: Performed By: #### S CAN CBC ####[address] [address] [facility] Mean Corpuscular HGB Conc 32.4 g/dL Low 32.5-35.6 [facility] Comment on above: Performed By: #### S CAN CBC ####[address] [address] [facility] Monocytes (Bld) [#/Vol] 2.3 10*3/uL High 0.0-0.8 [facility] Comment on above: Performed By: #### S CAN CBC ####[place] [id number] [facility] Monocytes/100 WBC (Bld) 9.4 % Normal . [facility] Comment on above: Performed By: #### S CAN CBC ####[address] [address] [facility] Neutrophils (Bld) [#/Vol] 19.7 10*3/uL High 1.8-7.7 [facility] Comment on above: Performed By: #### S CAN CBC ####[place] [id number] [facility] Neutrophils/100 WBC (Bld) 81.3 % Normal . [facility] Comment on above: Performed By: #### S CAN CBC ####[address] [address] [facility] NRBC% 0.0 /100{WBC} Normal 0-0.5 [facility] Comment on above: Performed By: #### S CAN CBC ####[place] [address] [place] [address] [facility] Platelet Estimate Normal Normal Normal [facility] Comment on above: Performed By: #### S CAN CBC ####[place] [id number] [facility] Platelet mean volume (Bld) [Entitic vol] 7.8 fL Normal 6.6-10.1 [facility] Comment on above: Performed By: #### S CAN CBC ####[place] [id number] [facility] Platelet Morphology Normal Normal Normal [facility] Comment on above: Result Comment: PERF ORMED BY:[address] [place], [place] [phone] MEDICAL DIRECTORNATI LAUREN M.D. Performed By: #### S CAN CBC ####[place] [id number] [facility] Platelets (Bld) [#/Vol] 369 10*3/uL Normal 150-450 [facility] Comment on above: Performed By: #### S CAN CBC ####[place] [id number] [facility] Polychromasia Slight Normal [facility] Comment on above: Performed By: #### S CAN CBC ####[place] [id number] [facility] RBC (Bld) [#/Vol] 2.95 10*6/uL Low 3.90-5.60 [facility] Comment on above: Performed By: #### S CAN CBC ####[place] [id number] [facility] Stomatocytes Slight Normal [facility] Comment on above: Performed By: #### S CAN CBC ####[place] [id number] [facility] WBC (Bld) [#/Vol] 24.2 10*3/uL High 4.1-10.5 [facility] Comment on above: Performed By: #### S CAN CBC ####[place] [id number] [facility] Specific gravity Auto test s trip (U) [Rel density]Ordered By: Sanjay Holt on 11-16-2022 Specific gravity (U) [Rel density] 1.022 1.001-1.03 0 [facility] Squamous epithelial cells de tection in urine sediment by light microscopyOrdered By: Sanjay Holt on 11-16-2022 Epithelial cells.squamous LM Ql (Urine sed) None seen [HPF] 0-2 [facility] Triglycerideson 11-16-2022 Triglyceride [Mass/Vol] 109 mg/dL Normal 0-149 [facility] Comment on above: Result Comment: TRIG ATP III CLASSIFICATION TRIG less than 150 mg/dL Normal TRIG 150-199 mg/dL Borderline high TRIG 200-500 mg/dL High TRIG greater than 500 mg/dL Very high Standard traceable to the Center for Disease Conrtrol and Prevention (CDC) test method.PERFORMED BY:[facility] [place], [place] [phone] MEDICAL DIRECTORNATI LAUREN M.D. Performed By: #### B MP, TRIG ####[facility] [address] [place] [address] [facility] Urine Cultureon 11-16-2022 Bacteria identified Cx Nom (U) No Growth 2 Days PERFORMED BY: [facility] [address] [place] [address] PATHOLOGIST [employer] NATI LAUREN M.D. [facility] Comment on above: Performed By: #### C UU, ADDONUAPLUS ####[address] [address] [facility] Urine bacteria detection by automated methodOrdered By: Sanjay Holt on 11-16-2022 Bacteria Auto Ql (U) None seen None Seen [facility] Urine clarity by refractomet ry automatedOrdered By: Sanjay Holt on 11-16-2022 Clarity Refractometry automated (U) Clear Clear [facility] Urine culture routineOrdered By: Sanjay Holt on 11-16-2022 Bacteria identified Cx Nom (U) No Growth 2 Days [facility] Urine glucose measurement by automated test strip (mass/volume)Ordered By: Sanjay Holt on 11-16-2022 Glucose Auto test strip (U) [Mass/Vol] Normal mg/dL Normal [facility] Urine hemoglobin detection b y automated test stripOrdered By: Sanjay Holt on 11-16-2022 Hemoglobin Auto test strip Ql (U) 1+ Negative [facility] Urine leukocyte esterase det ection by automated test stripOrdered By: Sanjay Holt on 11-16-2022 Leukocyte esterase Auto test strip Ql (U) 1+ Negative [facility] Urobilinogen Auto test strip (U) [Mass/Vol]Ordered By: Sanjay Holt on 11-16-2022 Urobilinogen (U) [Mass/Vol] Normal mg/dL Normal [facility] XR chest 1V portableon 11-16 XR chest 1V portable Normal [facility] pH Auto test strip (U)Ordere d By: Sanjay Holt on 11-16-2022 pH (U) 5.5 [pH] 5.0-9.0 [facility] Arterial Blood Gason 023 ABG Base Excess 9.5 mmol/L High -3.0-3.0 [facility] Comment on above: Performed By: #### A BG ####Point of Care testing, ABG Frac Inspired O2 80 % [facility] Comment on above: Performed By: #### A BG ####Point of Care testing, ABG Oxygen Content 7.0 mmol/L Normal 6.6-9.7 [facility] Comment on above: Performed By: #### A BG ####Point of Care testing, ABG Oxygen Saturation 97.2 % Normal 95.0-100.0 [facility] Comment on above: Performed By: #### A BG ####Point of Care testing, ABG PCO2 45.9 mm[Hg] High 35.0-45.0 [facility] Comment on above: Performed By: #### A BG ####Point of Care testing, ABG PEEP 10 [facility] Comment on above: Performed By: #### A BG ####Point of Care testing, ABG PH 7.49 High 7.35-7.45 [facility] Comment on above: Performed By: #### A BG ####Point of Care testing, ABG PO2 92.1 mm[Hg] Normal 80.0-100.0 [facility] Comment on above: Performed By: #### A BG ####Point of Care testing, ABG TV 500 mL [facility] Comment on above: Performed By: #### A BG ####Point of Care testing, CO2 [Moles/Vol] 35.4 mmol/L High 23.0-27.0 [facility] Comment on above: Performed By: #### A BG ####Point of Care testing, HCO3 (Bld) [Moles/Vol] 34.0 mmol/L High 23.0-29.0 [facility] Comment on above: Performed By: #### A BG ####Point of Care testing, Respiratory Critical [facility] Comment on above: Result Comment: Crit ical Value called on: 11/15/2022 at 05:48PERFORMED BY:[facility] [place] [place], [place] [phone] MEDICAL DIRECTORNATI LAUREN M.D. Performed By: #### A BG ####Point of Care testing, Set Respiratory Rate 20 [facility] Comment on above: Performed By: #### A BG ####Point of Care testing, VBG Draw Site Left Radial [facility] Comment on above: Performed By: #### A BG ####Point of Care testing, Ventilator Mode AC [facility] Comment on above: Performed By: #### A BG ####Point of Care testing, Basic Metabolic Panelon 05 Anion gap [Moles/Vol] 8.4 mmol/L Normal 6.0-15.0 [facility] Comment on above: Performed By: #### S CAN CBC, BMP ####[facility] [address] [place] [address] [facility] Calcium [Mass/Vol] 7.8 mg/dL Low 8.6-10.3 [facility] Comment on above: Performed By: #### S CAN CBC, BMP ####[facility] [address] [place] [address] [place] Chloride [Moles/Vol] 90 mmol/L Low 98-107 [facility] Comment on above: Performed By: #### S CAN CBC, BMP ####[place] [address] [place] [address] [facility] CO2 [Moles/Vol] 35.9 mmol/L High 21.0-31.0 [facility] Comment on above: Performed By: #### S CAN CBC, BMP ####[place] [address] [place] [address] [facility] Creatinine [Mass/Vol] 0.57 mg/dL Low 0.70-1.30 [facility] Comment on above: Performed By: #### S CAN CBC, BMP ####[place] [address] [place] [address] [place] Creatinine Clr Calc Pharmacy 191.33 [facility] Comment on above: Result Comment: PERF ORMED BY:[address] [place], [place] [phone] MEDICAL DIRECTORNATI LAUREN M.D. Performed By: #### S CAN CBC, BMP ####[place] [address] [place] [address] [facility] GFR/1.73 sq M.predicted MDRD (S/P/Bld) [Vol rate/Area] mL/min/{1.73_m2} [facility] Comment on above: Performed By: #### S CAN CBC, BMP ####[place] [address] [place] [id number] [facility] Glucose [Mass/Vol] 126 mg/dL High 70-100 [facility] Comment on above: Result Comment: [place] Glucose Reference Range is dependent on time and content of last meal. Glucose of more than 200 mg/dL in a nonstressed, ambulatory subject supports the diagnosis of Diabetes Mellitus. ADA recommended reference range Performed By: #### S CAN CBC, BMP ####[facility] [place] [id number] [facility] Potassium [Moles/Vol] 4.3 mmol/L Normal 3.5-5.1 [facility] Comment on above: Performed By: #### S CAN CBC, BMP ####[place] [address] Sodium [Moles/Vol] 130 mmol/L Low 136-145 [facility] Comment on above: Performed By: #### S CAN CBC, BMP ####[place] [address] Urea nitrogen [Mass/Vol] 28 mg/dL High 7-25 [facility] Comment on above: Performed By: #### S CAN CBC, BMP ####[address] Scan and CBCon 11-15-2022 Basophils (Bld) [#/Vol] 0.0 10*3/uL Normal 0.0-0.2 [facility] Comment on above: Performed By: #### S CAN CBC, BMP ####[address] Basophils/100 WBC (Bld) 0.1 % Normal . [facility] Comment on above: Performed By: #### S CAN CBC, BMP ####[address] Eosinophils (Bld) [#/Vol] 0.2 10*3/uL Normal 0.0-0.45 [facility] Comment on above: Performed By: #### S CAN CBC, BMP ####[place] [id number] [facility] Eosinophils/100 WBC (Bld) 1.0 % Normal . [facility] Comment on above: Performed By: #### S CAN CBC, BMP ####[address] Erythrocyte distribution width (RBC) [Ratio] 13.7 % Normal 12.0-14.8 [facility] Comment on above: Performed By: #### S CAN CBC, BMP ####[place] [id number] [facility] Hematocrit (Bld) [Volume fraction] 30.3 % Low 38.8-50.0 [facility] Comment on above: Performed By: #### S CAN CBC, BMP ####[place] [id number] [facility] Hemoglobin (Bld) [Mass/Vol] 10.1 g/dL Low 13.0-17.0 [facility] Comment on above: Performed By: #### S CAN CBC, BMP ####[address] [address] [facility] Hypochromasia Moderate Normal [facility] Comment on above: Performed By: #### S CAN CBC, BMP ####[place] [id number] [facility] Lymphocytes (Bld) [#/Vol] 1.9 10*3/uL Normal 1.00-4.8 [facility] Comment on above: Performed By: #### S CAN CBC, BMP ####[place] [id number] [facility] Lymphocytes/100 WBC (Bld) 7.8 % Normal . [facility] Comment on above: Performed By: #### S CAN CBC, BMP ####[address] MCH (RBC) [Entitic mass] 29.9 pg Normal 27.5-35.2 [facility] Comment on above: Performed By: #### S CAN CBC, BMP ####[place] [id number] [facility] MCV (RBC) [Entitic vol] 89.5 fL Normal 83.5-101 [facility] Comment on above: Performed By: #### S CAN CBC, BMP ####[place] [id number] [facility] Mean Corpuscular HGB Conc 33.4 g/dL Normal 32.5-35.6 [facility] Comment on above: Performed By: #### S CAN CBC, BMP ####[place] [id number] [facility] Monocytes (Bld) [#/Vol] 2.4 10*3/uL High 0.0-0.8 [facility] Comment on above: Performed By: #### S CAN CBC, BMP ####[address] [address] [facility] Monocytes/100 WBC (Bld) 9.7 % Normal . [facility] Comment on above: Performed By: #### S CAN CBC, BMP ####[place] [address] [place] [address] [facility] Neutrophils (Bld) [#/Vol] 20.4 10*3/uL High 1.8-7.7 [facility] Comment on above: Performed By: #### S CAN CBC, BMP ####[address] [address] [facility] Neutrophils/100 WBC (Bld) 81.4 % Normal . [facility] Comment on above: Performed By: #### S CAN CBC, BMP ####[address] [address] [facility] NRBC% 0.0 /100{WBC} Normal 0-0.5 [facility] Comment on above: Performed By: #### S CAN CBC, BMP ####[address] [address] [facility] Platelet Estimate Normal Normal Normal [facility] Comment on above: Performed By: #### S CAN CBC, BMP ####[address] [address] [facility] Platelet mean volume (Bld) [Entitic vol] 7.7 fL Normal 6.6-10.1 [facility] Comment on above: Performed By: #### S CAN CBC, BMP ####[address] [address] [facility] Platelet Morphology Normal Normal Normal [facility] Comment on above: Result Comment: PERF ORMED BY:[address] [place], [place] [phone] MEDICAL ALEKSANDAR LAUREN M.D. Performed By: #### S CAN CBC, BMP ####[address] [address] [place] Platelets (Bld) [#/Vol] 381 10*3/uL Normal 150-450 [facility] Comment on above: Performed By: #### S CAN CBC, BMP ####[place] [address] Polychromasia Slight [facility] Comment on above: Performed By: #### S CAN CBC, BMP ####[place] [id number] [facility] RBC (Bld) [#/Vol] 3.39 10*6/uL Low 3.90-5.60 [facility] Comment on above: Performed By: #### S CAN CBC, BMP ####[address] Stomatocytes Slight [facility] Comment on above: Performed By: #### S CAN CBC, BMP ####[place] [id number] [facility] Toxic Vacuolation Slight Normal [facility] Comment on above: Performed By: #### S CAN CBC, BMP ####[place] [id number] [facility] WBC (Bld) [#/Vol] 25.0 10*3/uL High 4.1-10.5 [facility] Comment on above: Performed By: #### S CAN CBC, BMP ####[place] [id number] [facility] Toxic leukocyte vacuolation detectionOrdered By: Reginald Arroyo on 11-15-2022 Leukocyte toxic vacuoles LM Ql (Bld) Slight [facility] XR chest 1V portableon 11-15 XR chest 1V portable Normal [facility] AFB Specimen Processingon AFB Specimen Processing [facility] Comment on above: Performed By: #### A FBCS RES1, MYC CULT ####[facility] ,#### FS ####[place] [id number] [facility] Anisocytosis LM Ql (Bld)Orde red By: Reginald Arroyo on 11-14-2022 Anisocytosis Ql (Bld) Slight [facility] Arterial Blood Gason 023 ABG Base Excess 8.5 mmol/L High -3.0-3.0 [facility] Comment on above: Performed By: #### A BG ####Point of Care testing, ABG Frac Inspired O2 85 % [facility] Comment on above: Performed By: #### A BG ####Point of Care testing, ABG Oxygen Content 7.2 mmol/L Normal 6.6-9.7 [facility] Comment on above: Performed By: #### A BG ####Point of Care testing, ABG Oxygen Saturation 93.3 % Low 95.0-100.0 [facility] Comment on above: Performed By: #### A BG ####Point of Care testing, ABG PCO2 47.2 mm[Hg] High 35.0-45.0 [facility] Comment on above: Performed By: #### A BG ####Point of Care testing, ABG PEEP 8 [facility] Comment on above: Performed By: #### A BG ####Point of Care testing, ABG PH 7.47 High 7.35-7.45 [facility] Comment on above: Performed By: #### A BG ####Point of Care testing, ABG PO2 68.0 mm[Hg] Low 80.0-100.0 [facility] Comment on above: Performed By: #### A BG ####Point of Care testing, ABG TV 500 mL [facility] Comment on above: Performed By: #### A BG ####Point of Care testing, CO2 [Moles/Vol] 34.8 mmol/L High 23.0-27.0 [facility] Comment on above: Performed By: #### A BG ####Point of Care testing, HCO3 (Bld) [Moles/Vol] 33.3 mmol/L High 23.0-29.0 [facility] Comment on above: Performed By: #### A BG ####Point of Care testing, Respiratory Critical [facility] Comment on above: Result Comment: Crit ical Value called on: 11/14/2022 at 04:56PERFORMED BY:[place] [address] NGOZIRosalbaAlfreditoALECATAWBA, [place] [phone] MEDICAL DIRECTORNATI LAUREN M.D. Performed By: #### A BG ####Point of Care testing, Set Respiratory Rate 20 [facility] Comment on above: Performed By: #### A BG ####Point of Care testing, VBG Draw Site Left Radial [facility] Comment on above: Performed By: #### A BG ####Point of Care testing, Ventilator Mode AC [facility] Comment on above: Performed By: #### A BG ####Point of Care testing, Basic Metabolic Panelon 05- Anion gap [Moles/Vol] 11.5 mmol/L Normal 6.0-15.0 [facility] Comment on above: Performed By: #### D IFF CBC, BMP ####[facility] [address] [place] [address] [place] Calcium [Mass/Vol] 7.8 mg/dL Low 8.6-10.3 [facility] Comment on above: Performed By: #### D IFF CBC, BMP ####[facility] [address] [place] [address] [place] Chloride [Moles/Vol] 91 mmol/L Low 98-107 [facility] Comment on above: Performed By: #### D IFF CBC, BMP ####[facility] [address] [place] [address] [place] CO2 [Moles/Vol] 32.8 mmol/L High 21.0-31.0 [facility] Comment on above: Performed By: #### D IFF CBC, BMP ####[facility] [address] [place] [address] [place] Creatinine [Mass/Vol] 0.59 mg/dL Low 0.70-1.30 [facility] Comment on above: Performed By: #### D IFF CBC, BMP ####[facility] [place] [address] [facility] Creatinine Clr Calc Pharmacy 186.93 [facility] Comment on above: Result Comment: PERF ORMED BY:[address] [place], [place] [phone] MEDICAL ALEKSANDAR LAUREN M.D. Performed By: #### D IFF CBC, BMP ####[place] [address] [place] [id number] [facility] GFR/1.73 sq M.predicted MDRD (S/P/Bld) [Vol rate/Area] mL/min/{1.73_m2} [facility] Comment on above: Performed By: #### D IFF CBC, BMP ####[place] [address] [place] [id number] [facility] Glucose [Mass/Vol] 105 mg/dL High 70-100 [facility] Comment on above: Result Comment: [place] Glucose Reference Range is dependent on time and content of last meal. Glucose of more than 200 mg/dL in a nonstressed, ambulatory subject supports the diagnosis of Diabetes Mellitus. ADA recommended reference range Performed By: #### D IFF CBC, BMP ####[place] [address] [place] [id number] [facility] Potassium [Moles/Vol] 4.3 mmol/L Normal 3.5-5.1 [facility] Comment on above: Performed By: #### D IFF CBC, BMP ####[place] [id number] [facility] Sodium [Moles/Vol] 131 mmol/L Significant change down 136-145 [facility] Comment on above: Performed By: #### D IFF CBC, BMP ####[place] [address] [place] [address] [facility] Urea nitrogen [Mass/Vol] 22 mg/dL Normal 7-25 [facility] Comment on above: Performed By: #### D IFF CBC, BMP ####[place] [address] [place] [address] [place] Bronch Cultureon 11-14-2022 Bronch Culture Normal [facility] Comment on above: Performed By: #### C UBR, GS ####[place] [id number] [facility] Diff and CBCon 11-14-2022 Anisocytosis Ql (Bld) Slight Normal [facility] Comment on above: Performed By: #### D IFF CBC, BMP ####[place] [id number] [facility] Eosinophils/100 WBC (Bld) 2 % Normal 1-3 [facility] Comment on above: Performed By: #### D IFF CBC, BMP ####[address] Erythrocyte distribution width (RBC) [Ratio] 13.7 % Normal 12.0-14.8 [facility] Comment on above: Performed By: #### D IFF CBC, BMP ####[address] Hematocrit (Bld) [Volume fraction] 34.1 % Low 38.8-50.0 [facility] Comment on above: Performed By: #### D IFF CBC, BMP ####[address] Hemoglobin (Bld) [Mass/Vol] 11.6 g/dL Low 13.0-17.0 [facility] Comment on above: Performed By: #### D IFF CBC, BMP ####[address] Hypochromasia Slight Normal [facility] Comment on above: Performed By: #### D IFF CBC, BMP ####[place] [id number] [facility] Lymphocytes/100 WBC (Bld) 9 % Low 18-42 [facility] Comment on above: Performed By: #### D IFF CBC, BMP ####[address] MCH (RBC) [Entitic mass] 30.3 pg Normal 27.5-35.2 [facility] Comment on above: Performed By: #### D IFF CBC, BMP ####[address] [address] [facility] MCV (RBC) [Entitic vol] 89.3 fL Normal 83.5-101 [facility] Comment on above: Performed By: #### D IFF CBC, BMP ####[place] [id number] [facility] Mean Corpuscular HGB Conc 33.9 g/dL Normal 32.5-35.6 [facility] Comment on above: Performed By: #### D IFF CBC, BMP ####[place] [id number] [facility] Metamyelocytes 2 % High 0-0 [facility] Comment on above: Performed By: #### D IFF CBC, BMP ####[place] [id number] [facility] Monocytes/100 WBC (Bld) 8 % Normal 2-11 [facility] Comment on above: Performed By: #### D IFF CBC, BMP ####[place] [id number] [facility] Myelocytes 1 % High 0-0 [facility] Comment on above: Performed By: #### D IFF CBC, BMP ####[address] [address] [facility] Platelet Estimate Normal Normal Normal [facility] Comment on above: Result Comment: PERF ORMED BY:[address] [place], [place] [phone] MEDICAL ALEKSANDAR LAUREN M.D. Performed By: #### D IFF CBC, BMP ####[place] [id number] [facility] Platelet mean volume (Bld) [Entitic vol] 7.3 fL Normal 6.6-10.1 [facility] Comment on above: Performed By: #### D IFF CBC, BMP ####[place] [id number] [facility] [facility] Platelet Morphology Normal Normal Normal [facility] Comment on above: Result Comment: PERF ORMED BY:[address] [address] [place], [place] [phone] MEDICAL ALEKSANDAR LAUREN M.D. Performed By: #### D IFF CBC, BMP ####[address] [place] [address] [facility] Platelets (Bld) [#/Vol] 445 10*3/uL Normal 150-450 [facility] Comment on above: Performed By: #### D IFF CBC, BMP ####[address] [place] [address] [facility] Poikilocytosis Slight Normal [facility] Comment on above: Performed By: #### D IFF CBC, BMP ####[address] [address] [facility] Polychromasia Slight Normal [facility] Comment on above: Performed By: #### D IFF CBC, BMP ####[address] [address] [facility] RBC (Bld) [#/Vol] 3.82 10*6/uL Low 3.90-5.60 [facility] Comment on above: Performed By: #### D IFF CBC, BMP ####[address] [address] [facility] Segmented neutrophils/100 WBC (Bld) 79 % High 50-70 [facility] Comment on above: Performed By: #### D IFF CBC, BMP ####[address] [address] [facility] Stomatocytes Slight Normal [facility] Comment on above: Performed By: #### D IFF CBC, BMP ####[address] [address] [facility] Target Cells Slight Normal [facility] Comment on above: Performed By: #### D IFF CBC, BMP ####[place] [id number] [facility] WBC (Bld) [#/Vol] 21.5 10*3/uL High 4.1-10.5 [facility] Comment on above: Performed By: #### D IFF CBC, BMP ####[place] [id number] [facility] Eosinophils/100 WBC Manual c nt (Bld)Ordered By: Reginald Arroyo on 11-14-2022 Eosinophils/100 WBC (Bld) 2 % 1-3 [facility] Fungal Smearon 11-14-2022 Fungal Smear Fungus Smear Results No Yeast Like Elements Seen No Fungal Like Elements Seen PERFORMED BY: [facility] [address] [place] [address] PATHOLOGIST [employer] NATI LAUREN M.D. [facility] Comment on above: Performed By: #### A FBCS RES1, MYC CULT ####[facility] ,#### FS ####[place] [id number] [facility] Fungus (Mycology) Cultureon 11-14-2022 Fungus (Mycology) Culture [facility] Comment on above: Performed By: #### A FBCS RES1, MYC CULT ####[facility] ,#### FS ####[address] [address] [place] Glucose Poct Glucometerson 0 11-14-2022 Glucose [Mass/Vol] 87 mg/dL Normal [facility] Comment on above: Result Comment: [facility] Glucose Reference Range is dependent on time and content of last meal. Glucose of more than 200 mg/dL in a nonstressed, ambulatory subject supports the diagnosis of Diabetes Mellitus.PERFORMED BY:[facility] [place], [place] [phone] MEDICAL DIRECTORNATI LAUREN M.D. Performed By: #### G LULS ####Point of Care testing, Gram Stainon 11-14-2022 Microscopic observation Gram stain Nom (Unsp spec) Gram Stain Result 3+ White Blood Cells 3+ Gram Positive Bacilli 1FPC PERFORMED BY: [facility] [address] [place] [address] PATHOLOGIST [employer] NATI LAUREN M.D. Normal [facility] Comment on above: Performed By: #### C UBR, GS ####[facility] [address] [place] [address] [facility] Lymphocytes/100 WBC Manual c nt (Bld)Ordered By: Reginald Arroyo on 11-14-2022 Lymphocytes/100 WBC (Bld) 9 % 18-42 [facility] Metamyelocytes/100 WBC Manua l cnt (Bld)Ordered By: Reginald Arroyo on 11-14-2022 Metamyelocytes/100 WBC (Bld) 2 % 0-0 [facility] Monocytes/100 WBC Manual cnt (Bld)Ordered By: Reginald Arroyo on 11-14-2022 Monocytes/100 WBC (Bld) 8 % 2-11 [facility] Myelocytes/100 WBC Manual cn t (Bld)Ordered By: Reginald Arroyo on 11-14-2022 Myelocytes/100 WBC (Bld) 1 % 0-0 [facility] Segmented neutrophils/100 WB C Manual cnt (Bld)Ordered By: Reginald Arroyo on 11-14-2022 Segmented neutrophils/100 WBC (Bld) 79 % 50-70 [facility] Target cellsOrdered By: Kira Arroyo on 11-14-2022 Target cells LM Ql (Bld) Slight [facility] Triglycerideson 11-14-2022 Triglyceride [Mass/Vol] 144 mg/dL Normal 0-149 [facility] Comment on above: Order Comment: Comme nt please run off blood drawn this morning Result Comment: TRIG ATP III CLASSIFICATION TRIG less than 150 mg/dL Normal TRIG 150-199 mg/dL Borderline high TRIG 200-500 mg/dL High TRIG greater than 500 mg/dL Very high Standard traceable to the Center for Disease Conrtrol and Prevention (CDC) test method.PERFORMED BY:[facility] [place], [place] [phone] MEDICAL DIRECTORNATI LAUREN M.D. Performed By: #### T RIG ####[facility] [address] [place] [address] [facility] US venous duplex LE BIon US venous duplex LE BI Normal [facility] XR chest 1V portableon 11-14 XR chest 1V portable Normal [facility] XR chest 1V portable Normal [facility] Arterial Blood Gason 023 ABG Base Excess 10.0 mmol/L High -3.0-3.0 [facility] Comment on above: Performed By: #### A BG ####Point of Care testing, ABG Frac Inspired O2 60 % [facility] Comment on above: Performed By: #### A BG ####Point of Care testing, ABG Oxygen Content 7.3 mmol/L Normal 6.6-9.7 [facility] Comment on above: Performed By: #### A BG ####Point of Care testing, ABG Oxygen Saturation 90.3 % Low 95.0-100.0 [facility] Comment on above: Performed By: #### A BG ####Point of Care testing, ABG PCO2 52.0 mm[Hg] Off scale high 35.0-45.0 [facility] Comment on above: Performed By: #### A BG ####Point of Care testing, ABG PEEP 8 [facility] Comment on above: Performed By: #### A BG ####Point of Care testing, ABG PH 7.45 Normal 7.35-7.45 [facility] Comment on above: Performed By: #### A BG ####Point of Care testing, ABG PO2 58.1 mm[Hg] Low 80.0-100.0 [facility] Comment on above: Performed By: #### A BG ####Point of Care testing, ABG TV 500 mL [facility] Comment on above: Performed By: #### A BG ####Point of Care testing, CO2 [Moles/Vol] 37.2 mmol/L High 23.0-27.0 [facility] Comment on above: Performed By: #### A BG ####Point of Care testing, HCO3 (Bld) [Moles/Vol] 35.6 mmol/L High 23.0-29.0 [facility] Comment on above: Performed By: #### A BG ####Point of Care testing, Respiratory Critical [facility] Comment on above: Result Comment: Crit ical Value called on: 11/13/2022 at 05:00PERFORMED BY:[address] [place], [place] [phone] MEDICAL DIRECTORNATI LAUREN M.D. Performed By: #### A BG ####Point of Care testing, Set Respiratory Rate 20 [facility] Comment on above: Performed By: #### A BG ####Point of Care testing, VBG Draw Site Right Radial [facility] Comment on above: Performed By: #### A BG ####Point of Care testing, Ventilator Mode AC [facility] Comment on above: Performed By: #### A BG ####Point of Care testing, Basic Metabolic Panelon 05 Anion gap [Moles/Vol] 7.9 mmol/L Normal 6.0-15.0 [facility] Comment on above: Performed By: #### S CAN CBC, BMP ####[facility] [address] [place] [address] [facility] Calcium [Mass/Vol] 8.0 mg/dL Low 8.6-10.3 [facility] Comment on above: Performed By: #### S CAN CBC, BMP ####[facility] [address] [place] [address] [place] Chloride [Moles/Vol] 96 mmol/L Low 98-107 [facility] Comment on above: Performed By: #### S CAN CBC, BMP ####[address] [place] [address] [facility] CO2 [Moles/Vol] 37.5 mmol/L High 21.0-31.0 [facility] Comment on above: Performed By: #### S CAN CBC, BMP ####[facility] [place] [address] [facility] Creatinine [Mass/Vol] 0.42 mg/dL Low 0.70-1.30 [facility] Comment on above: Performed By: #### S CAN CBC, BMP ####[address] [place] [address] [place] Creatinine Clr Calc Pharmacy 263.49 [facility] Comment on above: Result Comment: PERF ORMED BY:[address] [place], [place] [phone] MEDICAL ALEKSANDAR LAUREN M.D. Performed By: #### S CAN CBC, BMP ####[address] [place] [id number] [facility] GFR/1.73 sq M.predicted MDRD (S/P/Bld) [Vol rate/Area] mL/min/{1.73_m2} [facility] Comment on above: Performed By: #### S CAN CBC, BMP ####[address] [address] [facility] Glucose [Mass/Vol] 93 mg/dL Normal 70-100 [facility] Comment on above: Result Comment: [facility] Glucose Reference Range is dependent on time and content of last meal. Glucose of more than 200 mg/dL in a nonstressed, ambulatory subject supports the diagnosis of Diabetes Mellitus. ADA recommended reference range Performed By: #### S CAN CBC, BMP ####[address] [address] [facility] Potassium [Moles/Vol] 4.4 mmol/L Normal 3.5-5.1 [facility] Comment on above: Performed By: #### S CAN CBC, BMP ####[place] [id number] [facility] Sodium [Moles/Vol] 137 mmol/L Normal 136-145 [facility] Comment on above: Performed By: #### S CAN CBC, BMP ####[address] [place] [id number] [facility] Urea nitrogen [Mass/Vol] 20 mg/dL Normal 7-25 [facility] Comment on above: Performed By: #### S CAN CBC, BMP ####[facility] [place] [address] [place] [address] [facility] Glucose Poct Glucometerson 0 11-13-2022 Commemt1 Glu2: Cleaned Meter [facility] Comment on above: Result Comment: PERF ORMED BY:[address] [place], [place] [phone] MEDICAL DIRECTORNATI LAUREN M.D. Performed By: #### G LULS ####Point of Care testing, Glucose [Mass/Vol] 121 mg/dL Normal [facility] Comment on above: Result Comment: [place] [facility] Glucose Reference Range is dependent on time and content of last meal. Glucose of more than 200 mg/dL in a nonstressed, ambulatory subject supports the diagnosis of Diabetes Mellitus. Performed By: #### G LULS ####Point of Care testing, Commemt1 Glu2: Cleaned Meter [facility] Comment on above: Result Comment: PERF ORMED BY:[address] [place], [place] [phone] MEDICAL DIRECTORNATI LAUREN M.D. Performed By: #### G LULS ####Point of Care testing, Glucose [Mass/Vol] 87 mg/dL Normal [facility] Comment on above: Result Comment: [place] [facility] Glucose Reference Range is dependent on time and content of last meal. Glucose of more than 200 mg/dL in a nonstressed, ambulatory subject supports the diagnosis of Diabetes Mellitus. Performed By: #### G LULS ####Point of Care testing, Commemt1 Glu2: Cleaned Meter [facility] Comment on above: Result Comment: PERF ORMED BY:[address] [place], [place] [phone] MEDICAL DIRECTORNATI LAUREN M.D. Performed By: #### G LULS ####Point of Care testing, Glucose [Mass/Vol] 96 mg/dL Normal [facility] Comment on above: Result Comment: [place] [facility] Glucose Reference Range is dependent on time and content of last meal. Glucose of more than 200 mg/dL in a nonstressed, ambulatory subject supports the diagnosis of Diabetes Mellitus. Performed By: #### G LULS ####Point of Care testing, Commemt1 Glu2: Cleaned Meter Normal [facility] Comment on above: Result Comment: PERF ORMED BY:[address] [place], [place] [phone] MEDICAL DIRECTORNATI LAUREN M.D. Performed By: #### G LULS ####Point of Care testing, Glucose [Mass/Vol] 111 mg/dL Normal [facility] Comment on above: Result Comment: [place] [facility] Glucose Reference Range is dependent on time and content of last meal. Glucose of more than 200 mg/dL in a nonstressed, ambulatory subject supports the diagnosis of Diabetes Mellitus. Performed By: #### G LULS ####Point of Care testing, Scan and CBCon 11-13-2022 Basophils (Bld) [#/Vol] 0.2 10*3/uL Normal 0.0-0.2 [facility] Comment on above: Performed By: #### S CAN CBC, BMP ####[address] Basophils/100 WBC (Bld) 1.2 % Normal . [facility] Comment on above: Performed By: #### S CAN CBC, BMP ####[facility] [place] [address] Eosinophils (Bld) [#/Vol] 0.3 10*3/uL Normal 0.0-0.45 [facility] Comment on above: Performed By: #### S CAN CBC, BMP ####[address] Eosinophils/100 WBC (Bld) 2.0 % Normal . [facility] Comment on above: Performed By: #### S CAN CBC, BMP ####[address] Erythrocyte distribution width (RBC) [Ratio] 14.3 % Normal 12.0-14.8 [facility] Comment on above: Performed By: #### S CAN CBC, BMP ####[address] Hematocrit (Bld) [Volume fraction] 30.0 % Low 38.8-50.0 [facility] Comment on above: Performed By: #### S CAN CBC, BMP ####[address] Hemoglobin (Bld) [Mass/Vol] 9.8 g/dL Low 13.0-17.0 [facility] Comment on above: Performed By: #### S CAN CBC, BMP ####[address] Hypochromasia Moderate Normal [facility] Comment on above: Performed By: #### S CAN CBC, BMP ####[address] Lymphocytes (Bld) [#/Vol] 3.0 10*3/uL Normal 1.00-4.8 [facility] Comment on above: Performed By: #### S CAN CBC, BMP ####[address] Lymphocytes/100 WBC (Bld) 19.1 % Normal . [facility] Comment on above: Performed By: #### S CAN CBC, BMP ####[address] MCH (RBC) [Entitic mass] 29.6 pg Normal 27.5-35.2 [facility] Comment on above: Performed By: #### S CAN CBC, BMP ####[address] MCV (RBC) [Entitic vol] 90.9 fL Normal 83.5-101 [facility] Comment on above: Performed By: #### S CAN CBC, BMP ####[address] Mean Corpuscular HGB Conc 32.6 g/dL Normal 32.5-35.6 [facility] Comment on above: Performed By: #### S CAN CBC, BMP ####[place] [id number] [facility] Monocytes (Bld) [#/Vol] 1.2 10*3/uL High 0.0-0.8 [facility] Comment on above: Performed By: #### S CAN CBC, BMP ####[address] Monocytes/100 WBC (Bld) 7.7 % Normal . [facility] Comment on above: Performed By: #### S CAN CBC, BMP ####[address] Neutrophils (Bld) [#/Vol] 11.1 10*3/uL High 1.8-7.7 [facility] Comment on above: Performed By: #### S CAN CBC, BMP ####[address] Neutrophils/100 WBC (Bld) 70.0 % Normal . [facility] Comment on above: Performed By: #### S CAN CBC, BMP ####[place] [id number] [facility] NRBC% 0.1 /100{WBC} Normal 0-0.5 [facility] Comment on above: Performed By: #### S CAN CBC, BMP ####[place] [id number] [facility] Platelet Estimate Normal Normal Normal [facility] Comment on above: Performed By: #### S CAN CBC, BMP ####[place] [id number] [facility] Platelet mean volume (Bld) [Entitic vol] 7.0 fL Normal 6.6-10.1 [facility] Comment on above: Performed By: #### S CAN CBC, BMP ####[address] Platelet Morphology Normal Normal Normal [facility] Comment on above: Result Comment: PERF ORMED BY:[address] [place], [place] [phone] MEDICAL DIRECTORNATI LAUREN M.D. Performed By: #### S CAN CBC, BMP ####[facility] [place] [address] [facility] Platelets (Bld) [#/Vol] 435 10*3/uL Normal 150-450 [facility] Comment on above: Performed By: #### S CAN CBC, BMP ####[address] [place] [address] [facility] Polychromasia Slight Normal [facility] Comment on above: Performed By: #### S CAN CBC, BMP ####[address] [place] [address] [facility] RBC (Bld) [#/Vol] 3.30 10*6/uL Low 3.90-5.60 [facility] Comment on above: Performed By: #### S CAN CBC, BMP ####[address] [place] [address] [facility] Stomatocytes Slight Normal [facility] Comment on above: Performed By: #### S CAN CBC, BMP ####[address] [place] [place] [address] [facility] WBC (Bld) [#/Vol] 15.9 10*3/uL High 4.1-10.5 [facility] Comment on above: Performed By: #### S CAN CBC, BMP ####[address] [address] [facility] XR chest 1V portableon 11-13 XR chest 1V portable Normal [facility] Arterial Blood Gason 023 ABG Base Excess 7.5 mmol/L High -3.0-3.0 [facility] Comment on above: Performed By: #### A BG ####Point of Care testing, ABG Frac Inspired O2 45 % Normal [facility] Comment on above: Performed By: #### A BG ####Point of Care testing, ABG Oxygen Content 6.3 mmol/L Low 6.6-9.7 [facility] Comment on above: Performed By: #### A BG ####Point of Care testing, ABG Oxygen Saturation 89.5 % Low 95.0-100.0 [facility] Comment on above: Performed By: #### A BG ####Point of Care testing, ABG PCO2 50.7 mm[Hg] Off scale high 35.0-45.0 [facility] Comment on above: Performed By: #### A BG ####Point of Care testing, ABG PEEP 8 Normal [facility] Comment on above: Performed By: #### A BG ####Point of Care testing, ABG PH 7.43 Normal 7.35-7.45 [facility] Comment on above: Performed By: #### A BG ####Point of Care testing, ABG PO2 59.2 mm[Hg] Low 80.0-100.0 [facility] Comment on above: Performed By: #### A BG ####Point of Care testing, ABG TV 500 mL [facility] Comment on above: Performed By: #### A BG ####Point of Care testing, CO2 [Moles/Vol] 34.5 mmol/L High 23.0-27.0 [facility] Comment on above: Performed By: #### A BG ####Point of Care testing, HCO3 (Bld) [Moles/Vol] 33.0 mmol/L High 23.0-29.0 [facility] Comment on above: Performed By: #### A BG ####Point of Care testing, Respiratory Critical [facility] Comment on above: Result Comment: Crit ical Value called on: 11/12/2022 at 04:59PERFORMED BY:[facility] [place], [place] [phone] MEDICAL DIRECTORNATI LAUREN M.D. Performed By: #### A BG ####Point of Care testing, Set Respiratory Rate 20 Normal [facility] Comment on above: Performed By: #### A BG ####Point of Care testing, VBG Draw Site Right Radial [facility] Comment on above: Performed By: #### A BG ####Point of Care testing, Ventilator Mode AC [facility] Comment on above: Performed By: #### A BG ####Point of Care testing, Basic Metabolic Panelon 05-0 Anion gap [Moles/Vol] 7.0 mmol/L Normal 6.0-15.0 [facility] Comment on above: Performed By: #### B MP, DIFF CBC ####[facility] [address] [place] [address] [facility] Calcium [Mass/Vol] 7.7 mg/dL Low 8.6-10.3 [facility] Comment on above: Performed By: #### B MP, DIFF CBC ####[address] [place] [place] [address] [place] Chloride [Moles/Vol] 99 mmol/L Normal 98-107 [facility] Comment on above: Performed By: #### B MP, DIFF CBC ####[facility] [id number] [place] [address] [address] [facility] CO2 [Moles/Vol] 36.1 mmol/L High 21.0-31.0 [facility] Comment on above: Performed By: #### B MP, DIFF CBC ####[facility] [address] [place] [address] [place] Creatinine [Mass/Vol] 0.39 mg/dL Low 0.70-1.30 [facility] Comment on above: Performed By: #### B MP, DIFF CBC ####[facility] [address] [place] [address] [place] Creatinine Clr Calc Pharmacy 278.31 [facility] Comment on above: Result Comment: PERF ORMED BY:[address] [place], [place] [phone] MEDICAL DIRECTORNATI LAUREN M.D. Performed By: #### B MP, DIFF CBC ####[place] [address] [place] [address] [facility] GFR/1.73 sq M.predicted MDRD (S/P/Bld) [Vol rate/Area] mL/min/{1.73_m2} Normal [facility] Comment on above: Performed By: #### B MP, DIFF CBC ####[place] [address] [place] [address] [facility] Glucose [Mass/Vol] 128 mg/dL High 70-100 [facility] Comment on above: Result Comment: [facility] Glucose Reference Range is dependent on time and content of last meal. Glucose of more than 200 mg/dL in a nonstressed, ambulatory subject supports the diagnosis of Diabetes Mellitus. ADA recommended reference range Performed By: #### B MP, DIFF CBC ####[address] [address] [facility] Potassium [Moles/Vol] 4.1 mmol/L Normal 3.5-5.1 [facility] Comment on above: Performed By: #### B MP, DIFF CBC ####[place] [id number] [facility] Sodium [Moles/Vol] 138 mmol/L Normal 136-145 [facility] Comment on above: Performed By: #### B MP, DIFF CBC ####[place] [id number] [facility] Urea nitrogen [Mass/Vol] 15 mg/dL Normal 7-25 [facility] Comment on above: Performed By: #### B MP, DIFF CBC ####[address] [address] [facility] Diff and CBCon 11-12-2022 Anisocytosis Ql (Bld) Slight Normal [facility] Comment on above: Performed By: #### B MP, DIFF CBC ####[address] [address] [facility] Erythrocyte distribution width (RBC) [Ratio] 13.9 % Normal 12.0-14.8 [facility] Comment on above: Performed By: #### B MP, DIFF CBC ####[place] [address] Hematocrit (Bld) [Volume fraction] 29.5 % Low 38.8-50.0 [facility] Comment on above: Performed By: #### B MP, DIFF CBC ####[address] Hemoglobin (Bld) [Mass/Vol] 9.9 g/dL Low 13.0-17.0 [facility] Comment on above: Performed By: #### B MP, DIFF CBC ####[address] Hypochromasia Moderate Normal [facility] Comment on above: Performed By: #### B MP, DIFF CBC ####[address] Lymphocytes/100 WBC (Bld) 13 % Low 18-42 [facility] Comment on above: Performed By: #### B MP, DIFF CBC ####[address] MCH (RBC) [Entitic mass] 30.5 pg Normal 27.5-35.2 [facility] Comment on above: Performed By: #### B MP, DIFF CBC ####[address] MCV (RBC) [Entitic vol] 91.1 fL Normal 83.5-101 [facility] Comment on above: Performed By: #### B MP, DIFF CBC ####[address] Mean Corpuscular HGB Conc 33.5 g/dL Normal 32.5-35.6 [facility] Comment on above: Performed By: #### B MP, DIFF CBC ####[address] Metamyelocytes 3 % High 0-0 [facility] Comment on above: Performed By: #### B MP, DIFF CBC ####[address] Monocytes/100 WBC (Bld) 4 % Normal 2-11 [facility] Comment on above: Performed By: #### B MP, DIFF CBC ####[address] [address] [facility] Myelocytes 3 % High 0-0 [facility] Comment on above: Performed By: #### B MP, DIFF CBC ####[address] [address] [facility] Platelet Estimate Normal Normal Normal [facility] Comment on above: Performed By: #### B MP, DIFF CBC ####[place] [id number] [facility] Platelet mean volume (Bld) [Entitic vol] 7.1 fL Normal 6.6-10.1 [facility] Comment on above: Result Comment: PERF ORMED BY:[address] [place], [place] [phone] MEDICAL DIRECTORNATI LAUREN M.D. Performed By: #### B MP, DIFF CBC ####[place] [id number] [facility] Platelet Morphology Normal Normal Normal [facility] Comment on above: Result Comment: PERF ORMED BY:[address] [place], [place] [phone] MEDICAL DIRECTORNATI LAUREN M.D. Performed By: #### B MP, DIFF CBC ####[place] [id number] [facility] Platelets (Bld) [#/Vol] 375 10*3/uL Normal 150-450 [facility] Comment on above: Performed By: #### B MP, DIFF CBC ####[address] [address] [facility] RBC (Bld) [#/Vol] 3.24 10*6/uL Low 3.90-5.60 [facility] Comment on above: Performed By: #### B MP, DIFF CBC ####[place] [id number] [facility] Segmented neutrophils/100 WBC (Bld) 78 % High 50-70 [facility] Comment on above: Performed By: #### B MP, DIFF CBC ####[place] [address] [place] [address] [facility] WBC (Bld) [#/Vol] 18.3 10*3/uL High 4.1-10.5 [facility] Comment on above: Performed By: #### B MP, DIFF CBC ####[address] [address] [facility] Glucose Poct Glucometerson 0 - Commemt1 Glu2: Cleaned Meter Normal [facility] Comment on above: Result Comment: PERF ORMED BY:[address] [place], [place] [phone] MEDICAL DIRECTORNATI LAUREN M.D. Performed By: #### G LULS ####Point of Care testing, Glucose [Mass/Vol] 125 mg/dL Normal [facility] Comment on above: Result Comment: [place] Glucose Reference Range is dependent on time and content of last meal. Glucose of more than 200 mg/dL in a nonstressed, ambulatory subject supports the diagnosis of Diabetes Mellitus. Performed By: #### G LULS ####Point of Care testing, Glucose [Mass/Vol] 133 mg/dL Normal [facility] Comment on above: Result Comment: [place] Glucose Reference Range is dependent on time and content of last meal. Glucose of more than 200 mg/dL in a nonstressed, ambulatory subject supports the diagnosis of Diabetes Mellitus.PERFORMED BY:[place] [address] [address] [place], [place] [phone] MEDICAL DIRECTORNATI LAUREN M.D. Performed By: #### G LULS ####Point of Care testing, Commemt1 Glu2: Cleaned Meter Normal [facility] Comment on above: Result Comment: PERF ORMED BY:[address] [address] [address] [place], [place] [phone] MEDICAL DIRECTORJIANLAN SUN M.D. Performed By: #### G LULS ####Point of Care testing, Glucose [Mass/Vol] 122 mg/dL Normal [facility] Comment on above: Result Comment: [place] Glucose Reference Range is dependent on time and content of last meal. Glucose of more than 200 mg/dL in a nonstressed, ambulatory subject supports the diagnosis of Diabetes Mellitus. Performed By: #### G LULS ####Point of Care testing, Commemt1 Glu2: Cleaned Meter Normal [facility] Comment on above: Result Comment: PERF ORMED BY:[facility] [place], [place] [phone] MEDICAL DIRECTORNATI LAUREN M.D. Performed By: #### G LULS ####Point of Care testing, Glucose [Mass/Vol] 120 mg/dL Normal [facility] Comment on above: Result Comment: [facility] Glucose Reference Range is dependent on time and content of last meal. Glucose of more than 200 mg/dL in a nonstressed, ambulatory subject supports the diagnosis of Diabetes Mellitus. Performed By: #### G LUBETY ####Point of Care testing, XR chest 1V portableon 11-12 XR chest 1V portable [facility] XR chest 1V portable [facility] Arterial Blood Gason 023 ABG Base Excess 6.6 mmol/L High -3.0-3.0 [facility] Comment on above: Performed By: #### A BG ####Point of Care testing, ABG Frac Inspired O2 60 % [facility] Comment on above: Performed By: #### A BG ####Point of Care testing, ABG Oxygen Content 6.3 mmol/L Low 6.6-9.7 [facility] Comment on above: Performed By: #### A BG ####Point of Care testing, ABG Oxygen Saturation 91.6 % Low 95.0-100.0 [facility] Comment on above: Performed By: #### A BG ####Point of Care testing, ABG PCO2 48.7 mm[Hg] High 35.0-45.0 [facility] Comment on above: Performed By: #### A BG ####Point of Care testing, ABG PEEP 8 [facility] Comment on above: Performed By: #### A BG ####Point of Care testing, ABG PH 7.43 Normal 7.35-7.45 [facility] Comment on above: Performed By: #### A BG ####Point of Care testing, ABG PO2 63.6 mm[Hg] Low 80.0-100.0 [facility] Comment on above: Performed By: #### A BG ####Point of Care testing, ABG TV 500 mL [facility] Comment on above: Performed By: #### A BG ####Point of Care testing, CO2 [Moles/Vol] 33.3 mmol/L High 23.0-27.0 [facility] Comment on above: Performed By: #### A BG ####Point of Care testing, HCO3 (Bld) [Moles/Vol] 31.8 mmol/L High 23.0-29.0 [facility] Comment on above: Performed By: #### A BG ####Point of Care testing, Respiratory Critical [facility] Comment on above: Result Comment: Crit ical Value called on: 11/11/2022 at 05:36PERFORMED BY:[address] [place] [address] [address] [place], [place] [phone] MEDICAL DIRECTORNATI LAUREN M.D. Performed By: #### A BG ####Point of Care testing, Set Respiratory Rate 20 [facility] Comment on above: Performed By: #### A BG ####Point of Care testing, VBG Draw Site Right Radial [facility] Comment on above: Performed By: #### A BG ####Point of Care testing, Ventilator Mode AC [facility] Comment on above: Performed By: #### A BG ####Point of Care testing, Basic Metabolic Panel Anion gap [Moles/Vol] 7.7 mmol/L Normal 6.0-15.0 [facility] Comment on above: Performed By: #### T RIG, BMP, DIFF CBC ####[place] [id number] [facility] Calcium [Mass/Vol] 7.5 mg/dL Low 8.6-10.3 [facility] Comment on above: Performed By: #### T RIG, BMP, DIFF CBC ####[place] [id number] [facility] Chloride [Moles/Vol] 99 mmol/L Normal 98-107 [facility] Comment on above: Performed By: #### T RIG, BMP, DIFF CBC ####[place] [id number] [facility] CO2 [Moles/Vol] 34.3 mmol/L High 21.0-31.0 [facility] Comment on above: Performed By: #### T RIG, BMP, DIFF CBC ####[address] Creatinine [Mass/Vol] 0.36 mg/dL Low 0.70-1.30 [facility] Comment on above: Performed By: #### T RIG, BMP, DIFF CBC ####[address] Creatinine Clr Calc Pharmacy 301.11 [facility] Comment on above: Performed By: #### T RIG, BMP, DIFF CBC ####[place] [id number] [facility] GFR/1.73 sq M.predicted MDRD (S/P/Bld) [Vol rate/Area] mL/min/{1.73_m2} [facility] Comment on above: Performed By: #### T RIG, BMP, DIFF CBC ####[place] [id number] [facility] Glucose [Mass/Vol] 108 mg/dL High 70-100 [facility] Comment on above: Result Comment: [facility] Glucose Reference Range is dependent on time and content of last meal. Glucose of more than 200 mg/dL in a nonstressed, ambulatory subject supports the diagnosis of Diabetes Mellitus. ADA recommended reference range Performed By: #### T RIG, BMP, DIFF CBC ####[address] Potassium [Moles/Vol] 4.0 mmol/L Normal 3.5-5.1 [facility] Comment on above: Performed By: #### T RIG, BMP, DIFF CBC ####[address] Sodium [Moles/Vol] 137 mmol/L Normal 136-145 [facility] Comment on above: Performed By: #### T RIG, BMP, DIFF CBC ####[address] Urea nitrogen [Mass/Vol] 14 mg/dL Normal 7-25 [facility] Comment on above: Performed By: #### T RIG, BMP, DIFF CBC ####[address] Diff and CBCon 11-11-2022 Anisocytosis Ql (Bld) Slight Normal [facility] Comment on above: Performed By: #### T RIG, BMP, DIFF CBC ####[address] Eosinophils/100 WBC (Bld) 2 % Normal 1-3 [facility] Comment on above: Performed By: #### T RIG, BMP, DIFF CBC ####[address] Erythrocyte distribution width (RBC) [Ratio] 14.3 % Normal 12.0-14.8 [facility] Comment on above: Performed By: #### T RIG, BMP, DIFF CBC ####[address] Hematocrit (Bld) [Volume fraction] 31.2 % Low 38.8-50.0 [facility] Comment on above: Performed By: #### T RIG, BMP, DIFF CBC ####[address] Hemoglobin (Bld) [Mass/Vol] 10.2 g/dL Low 13.0-17.0 [facility] Comment on above: Performed By: #### T RIG, BMP, DIFF CBC ####[address] Hypochromasia Moderate Normal [facility] Comment on above: Performed By: #### T RIG, BMP, DIFF CBC ####[address] Lymphocytes/100 WBC (Bld) 11 % Low 18-42 [facility] Comment on above: Performed By: #### T RIG, BMP, DIFF CBC ####[address] MCH (RBC) [Entitic mass] 29.9 pg Normal 27.5-35.2 [facility] Comment on above: Performed By: #### T RIG, BMP, DIFF CBC ####[address] MCV (RBC) [Entitic vol] 91.8 fL Normal 83.5-101 [facility] Comment on above: Performed By: #### T RIG, BMP, DIFF CBC ####[address] Mean Corpuscular HGB Conc 32.6 g/dL Normal 32.5-35.6 [facility] Comment on above: Performed By: #### T RIG, BMP, DIFF CBC ####[address] Metamyelocytes 2 % High 0-0 [facility] Comment on above: Performed By: #### T RIG, BMP, DIFF CBC ####[address] Monocytes/100 WBC (Bld) 6 % Normal 2-11 [facility] Comment on above: Performed By: #### T RIG, BMP, DIFF CBC ####[address] Myelocytes 1 % High 0-0 [facility] Comment on above: Performed By: #### T RIG, BMP, DIFF CBC ####[address] [address] [facility] Platelet Estimate Normal Normal Normal [facility] Comment on above: Performed By: #### T RIG, BMP, DIFF CBC ####[place] [id number] [facility] Platelet mean volume (Bld) [Entitic vol] 6.8 fL Normal 6.6-10.1 [facility] Comment on above: Result Comment: PERF ORMED BY:[address] [place], [place] [phone] MEDICAL DIRECTORNATI LAUERN M.D. Performed By: #### T RIG, BMP, DIFF CBC ####[address] Platelet Morphology Normal Normal Normal [facility] Comment on above: Result Comment: PERF ORMED BY:[address] [place], [place] [phone] MEDICAL ALEKSANDAR LAUREN M.D. Performed By: #### T RIG, BMP, DIFF CBC ####[address] Platelets (Bld) [#/Vol] 401 10*3/uL Normal 150-450 [facility] Comment on above: Performed By: #### T RIG, BMP, DIFF CBC ####[place] [id number] [facility] Polychromasia Slight Normal [facility] Comment on above: Performed By: #### T RIG, BMP, DIFF CBC ####[place] [id number] [facility] RBC (Bld) [#/Vol] 3.40 10*6/uL Low 3.90-5.60 [facility] Comment on above: Performed By: #### T RIG, BMP, DIFF CBC ####[place] [id number] [facility] Segmented neutrophils/100 WBC (Bld) 79 % High 50-70 [facility] Comment on above: Performed By: #### T RIG BMP, DIFF CBC ####[facility] [address] [place] [address] [facility] WBC (Bld) [#/Vol] 19.1 10*3/uL High 4.1-10.5 [facility] Comment on above: Performed By: #### T RIG BMP, DIFF CBC ####[facility] [address] [place] [id number] [facility] Glucose Poct Glucometerson 0 11-11-2022 Glucose [Mass/Vol] 156 mg/dL Normal [facility] Comment on above: Result Comment: [place] om Glucose Reference Range is dependent on time and content of last meal. Glucose of more than 200 mg/dL in a nonstressed, ambulatory subject supports the diagnosis of Diabetes Mellitus.PERFORMED BY:[address] [place], [place] [phone] MEDICAL DIRECTORNATI LAUREN M.D. Performed By: #### G LULS ####Point of Care testing, Commemt1 Glu2: Cleaned Meter [facility] Comment on above: Performed By: #### G LULS ####Point of Care testing, Commemt2 SLIDING SCALE COVERA [facility] Comment on above: Result Comment: PERF ORMED BY:[address] [place], [place] [phone] MEDICAL DIRECTORNATI LAUREN M.D. Performed By: #### G LULS ####Point of Care testing, Glucose [Mass/Vol] 158 mg/dL Normal [facility] Comment on above: Result Comment: [place] om Glucose Reference Range is dependent on time and content of last meal. Glucose of more than 200 mg/dL in a nonstressed, ambulatory subject supports the diagnosis of Diabetes Mellitus. Performed By: #### G LULS ####Point of Care testing, Glucose [Mass/Vol] 97 mg/dL Normal [facility] Comment on above: Result Comment: [place] om Glucose Reference Range is dependent on time and content of last meal. Glucose of more than 200 mg/dL in a nonstressed, ambulatory subject supports the diagnosis of Diabetes Mellitus.PERFORMED BY:[place] [address] [address] [place], [place] [phone] MEDICAL DIRECTORNATI LAUREN M.D. Performed By: #### G LULS ####Point of Care testing, Magnesiumon 11-11-2022 Magnesium [Mass/Vol] 2.2 mg/dL Normal 1.9-2.7 [facility] Comment on above: Order Comment: Comme nt please run off blood drawn this morning Result Comment: PERF ORMED BY:[place] [address] [address] [place], [place] [phone] MEDICAL DIRECTORNATI LAUREN M.D. Performed By: #### M G ####[address] [address] [facility] No Panel InformationOrdered By: Rubi Ramos on 11-11-2022 Bedside Glucose #2 Comment Sliding scale covera [facility] Triglycerideson 11-11-2022 Triglyceride [Mass/Vol] 143 mg/dL Normal 0-149 [facility] Comment on above: Result Comment: TRIG ATP III CLASSIFICATION TRIG less than 150 mg/dL Normal TRIG 150-199 mg/dL Borderline high TRIG 200-500 mg/dL High TRIG greater than 500 mg/dL Very high Standard traceable to the Center for Disease Conrtrol and Prevention (CDC) test method.PERFORMED BY:[place] [address] [address] [place], [place] [phone] MEDICAL DIRECTORNATI LAUREN M.D. Performed By: #### T RIG, BMP, DIFF CBC ####[address] [address] [facility] XR chest 1V portableon 11-11 XR chest 1V portable Normal [facility] Arterial Blood Gason 023 ABG Base Excess 8.6 mmol/L High -3.0-3.0 [facility] Comment on above: Performed By: #### A BG ####Point of Care testing, ABG Frac Inspired O2 40 % Normal [facility] Comment on above: Performed By: #### A BG ####Point of Care testing, ABG Oxygen Content 6.6 mmol/L Normal 6.6-9.7 [facility] Comment on above: Performed By: #### A BG ####Point of Care testing, ABG Oxygen Saturation 92.0 % Low 95.0-100.0 [facility] Comment on above: Performed By: #### A BG ####Point of Care testing, ABG PCO2 47.0 mm[Hg] High 35.0-45.0 [facility] Comment on above: Performed By: #### A BG ####Point of Care testing, ABG PEEP 6 [facility] Comment on above: Performed By: #### A BG ####Point of Care testing, ABG PH 7.47 High 7.35-7.45 [facility] Comment on above: Performed By: #### A BG ####Point of Care testing, ABG PO2 61.7 mm[Hg] Low 80.0-100.0 [facility] Comment on above: Performed By: #### A BG ####Point of Care testing, ABG TV 500 mL [facility] Comment on above: Performed By: #### A BG ####Point of Care testing, CO2 [Moles/Vol] 34.8 mmol/L High 23.0-27.0 [facility] Comment on above: Performed By: #### A BG ####Point of Care testing, HCO3 (Bld) [Moles/Vol] 33.4 mmol/L High 23.0-29.0 [facility] Comment on above: Performed By: #### A BG ####Point of Care testing, Respiratory Critical [facility] Comment on above: Result Comment: Crit ical Value called on: 11/10/2022 at 05:16PERFORMED BY:[facility] [place], [place] [phone] MEDICAL DIRECTORNATI LAUREN M.D. Performed By: #### A BG ####Point of Care testing, Set Respiratory Rate 20 Normal [facility] Comment on above: Performed By: #### A BG ####Point of Care testing, VBG Draw Site Left Brachial Normal [facility] Comment on above: Performed By: #### A BG ####Point of Care testing, Ventilator Mode AC Normal [facility] Comment on above: Performed By: #### A BG ####Point of Care testing, Basic Metabolic Panelon 05-0 Anion gap [Moles/Vol] 7.5 mmol/L Normal 6.0-15.0 [facility] Comment on above: Performed By: #### D IFF CBC, BMP ####[facility] [address] [place] [address] [place] Calcium [Mass/Vol] 7.5 mg/dL Low 8.6-10.3 [facility] Comment on above: Performed By: #### D IFF CBC, BMP ####[facility] [address] [place] [address] [place] Chloride [Moles/Vol] 100 mmol/L Normal 98-107 [facility] Comment on above: Performed By: #### D IFF CBC, BMP ####[facility] [address] [place] [address] [place] CO2 [Moles/Vol] 34.4 mmol/L High 21.0-31.0 [facility] Comment on above: Performed By: #### D IFF CBC, BMP ####[facility] [address] [place] [address] [place] Creatinine [Mass/Vol] 0.40 mg/dL Low 0.70-1.30 [facility] Comment on above: Performed By: #### D IFF CBC, BMP ####[facility] [address] [place] [address] [place] Creatinine Clr Calc Pharmacy 271.94 [facility] Comment on above: Result Comment: PERF ORMED BY:[address] [place], [place] [phone] MEDICAL DIRECTORNATI LAUREN M.D. Performed By: #### D IFF CBC, BMP ####[place] [address] [place] [address] [place] GFR/1.73 sq M.predicted MDRD (S/P/Bld) [Vol rate/Area] mL/min/{1.73_m2} [facility] Comment on above: Performed By: #### D IFF CBC, BMP ####[place] [address] [place] [address] [facility] Glucose [Mass/Vol] 111 mg/dL High 70-100 [facility] Comment on above: Result Comment: [place] Glucose Reference Range is dependent on time and content of last meal. Glucose of more than 200 mg/dL in a nonstressed, ambulatory subject supports the diagnosis of Diabetes Mellitus. ADA recommended reference range Performed By: #### D IFF CBC, BMP ####[place] [address] [place] [id number] [facility] Potassium [Moles/Vol] 3.9 mmol/L Normal 3.5-5.1 [facility] Comment on above: Performed By: #### D IFF CBC, BMP ####[place] [address] [place] [id number] [facility] Sodium [Moles/Vol] 138 mmol/L Normal 136-145 [facility] Comment on above: Performed By: #### D IFF CBC, BMP ####[place] [address] [place] [address] [facility] Urea nitrogen [Mass/Vol] 19 mg/dL Normal 7-25 [facility] Comment on above: Performed By: #### D IFF CBC, BMP ####[place] [address] [place] [address] [facility] Blood Cultureon 11-10-2022 Bacteria identified Cx Nom (Bld) NO GROWTH 5 DAYS PERFORMED BY: [facility] [address] [place] [address] PATHOLOGIST [employer] NATI LAUREN M.D. [facility] Comment on above: Performed By: #### C UBLD ####[address] Diff and CBCon 11-10-2022 Erythrocyte distribution width (RBC) [Ratio] 13.9 % Normal 12.0-14.8 [facility] Comment on above: Performed By: #### D IFF CBC, BMP ####[address] Hematocrit (Bld) [Volume fraction] 30.5 % Low 38.8-50.0 [facility] Comment on above: Performed By: #### D IFF CBC, BMP ####[address] Hemoglobin (Bld) [Mass/Vol] 10.0 g/dL Low 13.0-17.0 [facility] Comment on above: Performed By: #### D IFF CBC, BMP ####[address] Hypochromasia Moderate Normal [facility] Comment on above: Performed By: #### D IFF CBC, BMP ####[address] MCH (RBC) [Entitic mass] 29.9 pg Normal 27.5-35.2 [facility] Comment on above: Performed By: #### D IFF CBC, BMP ####[address] MCV (RBC) [Entitic vol] 91.2 fL Normal 83.5-101 [facility] Comment on above: Performed By: #### D IFF CBC, BMP ####[address] Mean Corpuscular HGB Conc 32.8 g/dL Normal 32.5-35.6 [facility] Comment on above: Performed By: #### D IFF CBC, BMP ####[place] [id number] [facility] Platelet Estimate Normal Normal Normal [facility] Comment on above: Performed By: #### D IFF CBC, BMP ####[address] [address] [facility] Platelet mean volume (Bld) [Entitic vol] 6.9 fL Normal 6.6-10.1 [facility] Comment on above: Result Comment: PERF ORMED BY:[address] [place], [place] [phone] MEDICAL DIRECTORNATI LAUREN M.D. Performed By: #### D IFF CBC, BMP ####[place] [id number] [facility] Platelet Morphology Normal Normal Normal [facility] Comment on above: Result Comment: PERF ORMED BY:[address] [place], [place] [phone] MEDICAL DIRECTORNATI LAUREN M.D. Performed By: #### D IFF CBC, BMP ####[place] [id number] [facility] Platelets (Bld) [#/Vol] 375 10*3/uL Normal 150-450 [facility] [place] Comment on above: Performed By: #### D IFF CBC, BMP ####[place] [id number] [facility] RBC (Bld) [#/Vol] 3.34 10*6/uL Low 3.90-5.60 [facility] Comment on above: Performed By: #### D IFF CBC, BMP ####[place] [id number] [facility] Stomatocytes Slight Normal [facility] Comment on above: Performed By: #### D IFF CBC, BMP ####[place] [id number] [facility] Target Cells Slight Normal [facility] Comment on above: Performed By: #### D IFF CBC, BMP ####[place] [id number] [facility] WBC (Bld) [#/Vol] 14.4 10*3/uL High 4.1-10.5 [facility] Comment on above: Performed By: #### D IFF CBC, BMP ####[address] [address] [facility] Dipstick and Microscopicon 0 - Appearance (U) Clear Normal Clear [facility] Comment on above: Order Comment: Name Collection Type:: Earl Catheter Performed By: #### A DDONUAPLUS ####[address] [address] [facility] Bacteria,Urine None Seen Normal None Seen [facility] Comment on above: Order Comment: Name Collection Type:: Earl Catheter Performed By: #### A DDONUAPLUS ####[address] [address] [facility] Bilirubin,Urine Negative Normal Negative [facility] Comment on above: Order Comment: Name Collection Type:: Earl Catheter Performed By: #### A DDONUAPLUS ####[address] [address] [facility] Color (U) Yellow Normal Yellow [facility] Comment on above: Order Comment: Name Collection Type:: Earl Catheter Performed By: #### A DDONUAPLUS ####[address] [address] [facility] Glucose Ql (U) Normal Normal Normal [facility] Comment on above: Order Comment: Name Collection Type:: Earl Catheter Performed By: #### A DDONUAPLUS ####[address] [address] [facility] Hyaline Casts,Urine None Seen Normal 0-8 [facility] Comment on above: Order Comment: Name Collection Type:: Earl Catheter Result Comment: PERF ORMED BY:[address] [place], [place] [phone] MEDICAL DIRECTORNATI LAUREN M.D. Performed By: #### A DDONUAPLUS ####[address] [address] [facility] Ketones Ql (U) Negative Normal Negative [facility] Comment on above: Order Comment: Name Collection Type:: Earl Catheter Performed By: #### A DDONUAPLUS ####[address] [address] [facility] Leukocyte esterase Test strip Ql (U) Negative Normal Negative [facility] Comment on above: Order Comment: Name Collection Type:: Earl Catheter Performed By: #### A DDONUAPLUS ####[address] [address] [facility] Nitrite,Urine Negative Normal Negative [facility] Comment on above: Order Comment: Name Collection Type:: Earl Catheter Performed By: #### A DDONUAPLUS ####[address] [address] [facility] Occult Blood,Urine Trace High Negative [facility] Comment on above: Order Comment: Name Collection Type:: Earl Catheter Result Comment: PERF ORMED BY:[address] [place], [place] [phone] MEDICAL DIRECTORNATI LAUREN M.D. Performed By: #### A DDONUAPLUS ####[address] [address] [facility] pH (U) 7.5 [pH] Normal 5.0-9.0 [facility] Comment on above: Order Comment: Name Collection Type:: Earl Catheter Performed By: #### A DDONUAPLUS ####[address] [address] [facility] Protein,Urine Negative Normal Negative [facility] Comment on above: Order Comment: Name Collection Type:: Earl Catheter Performed By: #### A DDONUAPLUS ####[address] [address] [place] RBC,Urine 10-19 High 0-4 [facility] Comment on above: Order Comment: Name Collection Type:: Earl Catheter Performed By: #### A DDONUAPLUS ####[address] [address] [facility] Specificy [place],Urine 1.016 Normal 1.001-1.03 0 [facility] Comment on above: Order Comment: Name Collection Type:: Earl Catheter Performed By: #### A DDONUAPLUS ####[place] [address] [place] [address] [facility] Squamous Epithelial Cell,Urine 0-1 Normal 0-2 [facility] Comment on above: Order Comment: Name Collection Type:: Earl Catheter Performed By: #### A DDONUAPLUS ####[address] [address] [facility] Urobilinogen,Urine Normal Normal Normal [facility] Comment on above: Order Comment: Name Collection Type:: Earl Catheter Performed By: #### A DDONUAPLUS ####[address] [address] [facility] WBC,Urine 3-4 Normal 0-4 [facility] Comment on above: Order Comment: Name Collection Type:: Earl Catheter Performed By: #### A DDONUAPLUS ####[address] [address] [facility] Glucose Poct Glucometerson 0 11-10-2022 Glucose [Mass/Vol] 147 mg/dL Normal [facility] Comment on above: Result Comment: [facility] Glucose Reference Range is dependent on time and content of last meal. Glucose of more than 200 mg/dL in a nonstressed, ambulatory subject supports the diagnosis of Diabetes Mellitus.PERFORMED BY:[place] [address] [place], [place] [phone] MEDICAL DIRECTORNATI LAUREN M.D. Performed By: #### G LULS ####Point of Care testing, Glucose [Mass/Vol] 129 mg/dL Normal [facility] Comment on above: Result Comment: [facility] Glucose Reference Range is dependent on time and content of last meal. Glucose of more than 200 mg/dL in a nonstressed, ambulatory subject supports the diagnosis of Diabetes Mellitus.PERFORMED BY:[place] [address] [place], [place] [phone] MEDICAL ALEKSANDAR LAUREN M.D. Performed By: #### G LULS ####Point of Care testing, Glucose [Mass/Vol] 148 mg/dL Normal [facility] Comment on above: Result Comment: [facility] Glucose Reference Range is dependent on time and content of last meal. Glucose of more than 200 mg/dL in a nonstressed, ambulatory subject supports the diagnosis of Diabetes Mellitus.PERFORMED BY:[facility] [place], [place] [phone] MEDICAL DIRECTORNATI LAUREN M.D. Performed By: #### G BENJAMIN ####Point of Care testing, XR chest 1V portableon 11-10 XR chest 1V portable Normal [facility] XR chest 1V portable [facility] Arterial Blood Gason 023 ABG Base Excess 5.4 mmol/L High -3.0-3.0 [facility] Comment on above: Performed By: #### A BG ####Point of Care testing, ABG Frac Inspired O2 40 % [facility] Comment on above: Performed By: #### A BG ####Point of Care testing, ABG Oxygen Content 6.9 mmol/L Normal 6.6-9.7 [facility] Comment on above: Performed By: #### A BG ####Point of Care testing, ABG Oxygen Saturation 95.7 % Normal 95.0-100.0 [facility] Comment on above: Performed By: #### A BG ####Point of Care testing, ABG PCO2 52.4 mm[Hg] Off scale high 35.0-45.0 [facility] Comment on above: Performed By: #### A BG ####Point of Care testing, ABG PEEP 9 [facility] Comment on above: Performed By: #### A BG ####Point of Care testing, ABG PH 7.40 Normal 7.35-7.45 [facility] Comment on above: Performed By: #### A BG ####Point of Care testing, ABG PO2 82.4 mm[Hg] Normal 80.0-100.0 [facility] Comment on above: Performed By: #### A BG ####Point of Care testing, ABG TV 500 mL [facility] Comment on above: Performed By: #### A BG ####Point of Care testing, CO2 [Moles/Vol] 33.0 mmol/L High 23.0-27.0 [facility] Comment on above: Performed By: #### A BG ####Point of Care testing, HCO3 (Bld) [Moles/Vol] 31.4 mmol/L High 23.0-29.0 [facility] Comment on above: Performed By: #### A BG ####Point of Care testing, Respiratory Critical [facility] Comment on above: Result Comment: Crit ical Value called on: 11/09/2022 at 05:00PERFORMED BY:[facility] [place], [place] [phone] MEDICAL DIRECTORNATI LAUREN M.D. Performed By: #### A BG ####Point of Care testing, Set Respiratory Rate 20 [facility] Comment on above: Performed By: #### A BG ####Point of Care testing, VBG Draw Site Right Radial [facility] Comment on above: Performed By: #### A BG ####Point of Care testing, Ventilator Mode AC [facility] Comment on above: Performed By: #### A BG ####Point of Care testing, Basic Metabolic Panelon 05-0 Anion gap [Moles/Vol] 9.0 mmol/L Normal 6.0-15.0 [facility] Comment on above: Performed By: #### B MP, CBC ####[facility] [address] [place] [address] [facility] Calcium [Mass/Vol] 7.7 mg/dL Low 8.6-10.3 [facility] Comment on above: Performed By: #### B MP, CBC ####[facility] [address] [place] [address] [place] Chloride [Moles/Vol] 99 mmol/L Normal 98-107 [facility] Comment on above: Performed By: #### B MP, CBC ####[place] [address] [place] [address] [place] CO2 [Moles/Vol] 32.5 mmol/L High 21.0-31.0 [facility] Comment on above: Performed By: #### B MP, CBC ####[place] [address] [place] [address] [place] Creatinine [Mass/Vol] 0.40 mg/dL Low 0.70-1.30 [facility] Comment on above: Performed By: #### B MP, CBC ####[place] [address] [place] [address] [place] Creatinine Clr Calc Pharmacy 270.64 [facility] Comment on above: Result Comment: PERF ORMED BY:[address] [place], [place] [phone] MEDICAL DIRECTORNATI LAUREN M.D. Performed By: #### B MP, CBC ####[place] [address] [place] [address] [place] GFR/1.73 sq M.predicted MDRD (S/P/Bld) [Vol rate/Area] mL/min/{1.73_m2} [facility] Comment on above: Performed By: #### B MP, CBC ####[place] [address] [place] [address] [facility] Glucose [Mass/Vol] 160 mg/dL High 70-100 [facility] Comment on above: Result Comment: [place] Glucose Reference Range is dependent on time and content of last meal. Glucose of more than 200 mg/dL in a nonstressed, ambulatory subject supports the diagnosis of Diabetes Mellitus. ADA recommended reference range Performed By: #### B MP, CBC ####[facility] [address] [place] [address] [facility] Potassium [Moles/Vol] 4.5 mmol/L Normal 3.5-5.1 [facility] Comment on above: Performed By: #### B MP, CBC ####[place] [address] [place] [id number] [facility] Sodium [Moles/Vol] 136 mmol/L Normal 136-145 [facility] Comment on above: Performed By: #### B MP, CBC ####[address] Urea nitrogen [Mass/Vol] 19 mg/dL Normal 7-25 [facility] Comment on above: Performed By: #### B MP, CBC ####[address] Complete Blood Count Auto Di ffon 11-09-2022 Basophils (Bld) [#/Vol] 0.0 10*3/uL Normal 0.0-0.2 [facility] Comment on above: Result Comment: PERF ORMED BY:[address] [place], [place] [phone] MEDICAL DIRECTORNATI LAUREN M.D. Performed By: #### B MP, CBC ####[address] Basophils/100 WBC (Bld) 0.1 % Normal . [facility] Comment on above: Performed By: #### B MP, CBC ####[address] Eosinophils (Bld) [#/Vol] 0.0 10*3/uL Normal 0.0-0.45 [facility] Comment on above: Performed By: #### B MP, CBC ####[address] Eosinophils/100 WBC (Bld) 0.0 % Normal . [facility] Comment on above: Performed By: #### B MP, CBC ####[address] Erythrocyte distribution width (RBC) [Ratio] 14.2 % Normal 12.0-14.8 [facility] Comment on above: Performed By: #### B MP, CBC ####[address] Hematocrit (Bld) [Volume fraction] 31.0 % Low 38.8-50.0 [facility] Comment on above: Performed By: #### B MP, CBC ####[address] Hemoglobin (Bld) [Mass/Vol] 10.3 g/dL Low 13.0-17.0 [facility] Comment on above: Performed By: #### B MP, CBC ####[address] Lymphocytes (Bld) [#/Vol] 0.7 10*3/uL Low 1.00-4.8 [facility] Comment on above: Performed By: #### B MP, CBC ####[address] Lymphocytes/100 WBC (Bld) 4.6 % Normal . [facility] Comment on above: Performed By: #### B MP, CBC ####[address] MCH (RBC) [Entitic mass] 30.4 pg Normal 27.5-35.2 [facility] Comment on above: Performed By: #### B MP, CBC ####[address] MCV (RBC) [Entitic vol] 91.1 fL Normal 83.5-101 [facility] Comment on above: Performed By: #### B MP, CBC ####[address] Mean Corpuscular HGB Conc 33.4 g/dL Normal 32.5-35.6 [facility] Comment on above: Performed By: #### B MP, CBC ####[address] Monocytes (Bld) [#/Vol] 0.8 10*3/uL Normal 0.0-0.8 [facility] Comment on above: Performed By: #### B MP, CBC ####[address] Monocytes/100 WBC (Bld) 5.2 % Normal . [facility] Comment on above: Performed By: #### B MP, CBC ####[address] Neutrophils (Bld) [#/Vol] 13.1 10*3/uL High 1.8-7.7 [facility] Comment on above: Performed By: #### B MP, CBC ####[address] Neutrophils/100 WBC (Bld) 90.1 % Normal . [facility] Comment on above: Performed By: #### B MP, CBC ####[address] NRBC% 0.1 /100{WBC} Normal 0-0.5 [facility] Comment on above: Performed By: #### B MP, CBC ####[address] Platelet mean volume (Bld) [Entitic vol] 7.0 fL Normal 6.6-10.1 [facility] Comment on above: Performed By: #### B MP, CBC ####[address] Platelets (Bld) [#/Vol] 408 10*3/uL Normal 150-450 [facility] Comment on above: Performed By: #### B MP, CBC ####[facility] [address] [place] [address] RBC (Bld) [#/Vol] 3.40 10*6/uL Low 3.90-5.60 [facility] Comment on above: Performed By: #### B MP, CBC ####[address] WBC (Bld) [#/Vol] 14.6 10*3/uL High 4.1-10.5 [facility] Comment on above: Performed By: #### B MP, CBC ####[address] [place] [address] [facility] Glucose Poct Glucometerson 0 11-09-2022 Commemt1 Glu2: Cleaned Meter [facility] Comment on above: Result Comment: PERF ORMED BY:[place] [place], [place] [phone] MEDICAL DIRECTORNATI LAUREN M.D. Performed By: #### G LULS ####Point of Care testing, Glucose [Mass/Vol] 122 mg/dL Normal [facility] Comment on above: Result Comment: [place] om Glucose Reference Range is dependent on time and content of last meal. Glucose of more than 200 mg/dL in a nonstressed, ambulatory subject supports the diagnosis of Diabetes Mellitus. Performed By: #### G LULS ####Point of Care testing, Commemt1 Glu2: Cleaned Meter [facility] Comment on above: Result Comment: PERF ORMED BY:[address] [place], [place] [phone] MEDICAL DIRECTORNATI LAUREN M.D. Performed By: #### G LULS ####Point of Care testing, Glucose [Mass/Vol] 176 mg/dL Normal [facility] Comment on above: Result Comment: [place] om Glucose Reference Range is dependent on time and content of last meal. Glucose of more than 200 mg/dL in a nonstressed, ambulatory subject supports the diagnosis of Diabetes Mellitus. Performed By: #### G LULS ####Point of Care testing, Commemt1 Glu2: Cleaned Meter [facility] Comment on above: Result Comment: PERF ORMED BY:[address] [place], [place] [phone] MEDICAL DIRECTORNATI LAUREN M.D. Performed By: #### G LULS ####Point of Care testing, Glucose [Mass/Vol] 149 mg/dL Normal [facility] Comment on above: Result Comment: [place] om Glucose Reference Range is dependent on time and content of last meal. Glucose of more than 200 mg/dL in a nonstressed, ambulatory subject supports the diagnosis of Diabetes Mellitus. Performed By: #### G LULS ####Point of Care testing, Commemt1 Glu2: Cleaned Meter Normal [facility] Comment on above: Result Comment: PERF ORMED BY:[place] [address] [place], [place] [phone] MEDICAL DIRECTORNATI LAUREN M.D. Performed By: #### G LULS ####Point of Care testing, Glucose [Mass/Vol] 159 mg/dL Normal [facility] Comment on above: Result Comment: [facility] Glucose Reference Range is dependent on time and content of last meal. Glucose of more than 200 mg/dL in a nonstressed, ambulatory subject supports the diagnosis of Diabetes Mellitus. Performed By: #### G LULS ####Point of Care testing, Triglycerideson 11-09-2022 Triglyceride [Mass/Vol] 392 mg/dL High 0-149 [facility] Comment on above: Result Comment: TRIG ATP III CLASSIFICATION TRIG less than 150 mg/dL Normal TRIG 150-199 mg/dL Borderline high TRIG 200-500 mg/dL High TRIG greater than 500 mg/dL Very high Standard traceable to the Center for Disease Conrtrol and Prevention (CDC) test method.PERFORMED BY:[address] [address] [place], [place] [phone] MEDICAL ALEKSANDAR LAUREN M.D. Performed By: #### T RIG ####[facility] [place] [address] [address] [facility] XR chest 1V portableon 11-09 XR chest 1V portable Normal [facility] XR chest 1V portable [facility] Arterial Blood Gason 023 ABG Base Excess 4.1 mmol/L High -3.0-3.0 [facility] Comment on above: Performed By: #### A BG ####Point of Care testing, ABG Frac Inspired O2 80 % [facility] Comment on above: Performed By: #### A BG ####Point of Care testing, ABG Oxygen Content 7.5 mmol/L Normal 6.6-9.7 [facility] Comment on above: Performed By: #### A BG ####Point of Care testing, ABG Oxygen Saturation 97.9 % Normal 95.0-100.0 [facility] Comment on above: Performed By: #### A BG ####Point of Care testing, ABG PCO2 55.6 mm[Hg] Off scale high 35.0-45.0 [facility] Comment on above: Performed By: #### A BG ####Point of Care testing, ABG PEEP 12 [facility] Comment on above: Performed By: #### A BG ####Point of Care testing, ABG PH 7.36 Normal 7.35-7.45 [facility] Comment on above: Performed By: #### A BG ####Point of Care testing, ABG PO2 111.2 mm[Hg] High 80.0-100.0 [facility] Comment on above: Performed By: #### A BG ####Point of Care testing, ABG TV 500 mL [facility] Comment on above: Performed By: #### A BG ####Point of Care testing, CO2 [Moles/Vol] 32.5 mmol/L High 23.0-27.0 [facility] Comment on above: Performed By: #### A BG ####Point of Care testing, HCO3 (Bld) [Moles/Vol] 30.8 mmol/L High 23.0-29.0 [facility] Comment on above: Performed By: #### A BG ####Point of Care testing, Respiratory Critical [facility] Comment on above: Result Comment: Crit ical Value called on: 11/08/2022 at 05:00PERFORMED BY:[facility] [place], [place] [phone] MEDICAL DIRECTORNATI LAUREN M.D. Performed By: #### A BG ####Point of Care testing, Set Respiratory Rate 20 Normal [facility] Comment on above: Performed By: #### A BG ####Point of Care testing, VBG Draw Site Left Radial [facility] Comment on above: Performed By: #### A BG ####Point of Care testing, Ventilator Mode AC [facility] Comment on above: Performed By: #### A BG ####Point of Care testing, Basic Metabolic Panelon 05-0 Anion gap [Moles/Vol] 10.0 mmol/L Normal 6.0-15.0 [facility] Comment on above: Performed By: #### B MP, SCAN CBC ####[facility] [address]sp[address] [place] [address] [facility] Calcium [Mass/Vol] 8.2 mg/dL Low 8.6-10.3 [facility] Comment on above: Performed By: #### B MP, SCAN CBC ####[address] [address] [facility] Chloride [Moles/Vol] 99 mmol/L Normal 98-107 [facility] Comment on above: Performed By: #### B MP, SCAN CBC ####[address] [address] [facility] CO2 [Moles/Vol] 29.8 mmol/L Normal 21.0-31.0 [facility] Comment on above: Performed By: #### B MP, SCAN CBC ####[facility] Qwc[address]98 [place] [address] [facility] Creatinine [Mass/Vol] 0.43 mg/dL Low 0.70-1.30 [facility] Comment on above: Performed By: #### B MP, SCAN CBC ####[facility] [address] [place] [address] [place] Creatinine Clr Calc Pharmacy 251.76 [facility] Comment on above: Result Comment: PERF ORMED BY:[address] [place], [place] [phone] MEDICAL DIRECTORNATI LAUREN M.D. Performed By: #### B MP, SCAN CBC ####[address] [place] [address] [place] GFR/1.73 sq M.predicted MDRD (S/P/Bld) [Vol rate/Area] mL/min/{1.73_m2} Normal [facility] Comment on above: Performed By: #### B MP, SCAN CBC ####[facility] [address] [place] [address] [facility] Glucose [Mass/Vol] 140 mg/dL High 70-100 [facility] Comment on above: Result Comment: [facility] Glucose Reference Range is dependent on time and content of last meal. Glucose of more than 200 mg/dL in a nonstressed, ambulatory subject supports the diagnosis of Diabetes Mellitus. ADA recommended reference range Performed By: #### B MP, SCAN CBC ####[facility] [address] [place] [address] [facility] Potassium [Moles/Vol] 4.8 mmol/L Normal 3.5-5.1 [facility] Comment on above: Performed By: #### B MP, SCAN CBC ####[address] [address] [facility] Sodium [Moles/Vol] 134 mmol/L Low 136-145 [facility] Comment on above: Performed By: #### B MP, SCAN CBC ####[facility] [place] [address] [facility] Urea nitrogen [Mass/Vol] 22 mg/dL Normal 7-25 [facility] Comment on above: Performed By: #### B MP, SCAN CBC ####[address] [address] [place] Glucose Poct Glucometerson 0 11-08-2022 Glucose [Mass/Vol] 135 mg/dL Normal [facility] Comment on above: Result Comment: [facility] Glucose Reference Range is dependent on time and content of last meal. Glucose of more than 200 mg/dL in a nonstressed, ambulatory subject supports the diagnosis of Diabetes Mellitus.PERFORMED BY:[address] [place], [place] [phone] MEDICAL ALEKSANDAR LAUREN M.D. Performed By: #### G LUBETY ####Point of Care testing, HIV 1/O/2 Antigen/Antibodyon 11-08-2022 HIV Screen 4th Generation Non-Reactive Normal Non Reactive [facility] Comment on above: Order Comment: Dr. christopher gil putting in a chest tube Result Comment: HIV Negative HIV-1/HIV-2 antibodies and HIV-1 p24 antigen were NOT detected. There is no laboratory evidence of HIV infection. Performed at: [address] [id number] Back Shoe Worker: Crow Frost PhD, Phone: [phone] BY:[address] [place], [place] [phone] MEDICAL DIRECTORNATI LAUREN M.D. Performed By: #### H IV SCREEN ####[facility] , HIV 1 and HIV-2 antibody ass ay with HIV-1 p24 antigen detectionOrdered By: Sanjay Holt on 11-08-2022 HIV 1+2 Ab+HIV1 p24 Ag IA Ql Non-Reactive Non Reactive [facility] Comment on above: HIV NegativeHIV-1/HI V-2 antibodies and HIV-1 p24 antigen were NOTdetected. There is no laboratory evidence of HIV infection.Performed at: [address] [id number] Director: Crow Frost PhD, Phone: [phone] Scan and CBCon 11-08-2022 Basophils (Bld) [#/Vol] 0.0 10*3/uL Normal 0.0-0.2 [facility] Comment on above: Performed By: #### B MP, SCAN CBC ####[facility] Rqu5648 [place] [address] [facility] Basophils/100 WBC (Bld) 0.2 % Normal . [facility] Comment on above: Performed By: #### B MP, SCAN CBC ####[facility] Ycw4670 [place] [address] [facility] Eosinophils (Bld) [#/Vol] 0.0 10*3/uL Normal 0.0-0.45 [facility] Comment on above: Performed By: #### B MP, SCAN CBC ####[place] [id number] [facility] Eosinophils/100 WBC (Bld) 0.0 % Normal . [facility] Comment on above: Performed By: #### B MP, SCAN CBC ####[place] [id number] [facility] Erythrocyte distribution width (RBC) [Ratio] 14.0 % Normal 12.0-14.8 [facility] Comment on above: Performed By: #### B MP, SCAN CBC ####[address] Hematocrit (Bld) [Volume fraction] 32.9 % Low 38.8-50.0 [facility] Comment on above: Performed By: #### B MP, SCAN CBC ####[address] Hemoglobin (Bld) [Mass/Vol] 10.7 g/dL Low 13.0-17.0 [facility] Comment on above: Performed By: #### B MP, SCAN CBC ####[place] [id number] [facility] Hypochromasia Moderate Normal [facility] Comment on above: Performed By: #### B MP, SCAN CBC ####[address] Lymphocytes (Bld) [#/Vol] 0.7 10*3/uL Low 1.00-4.8 [facility] Comment on above: Performed By: #### B MP, SCAN CBC ####[place] [id number] [facility] Lymphocytes/100 WBC (Bld) 3.7 % Normal . [facility] Comment on above: Performed By: #### B MP, SCAN CBC ####[place] [id number] [facility] MCH (RBC) [Entitic mass] 29.9 pg Normal 27.5-35.2 [facility] Comment on above: Performed By: #### B MP, SCAN CBC ####[facility] Fek8432 [place] [address] [facility] MCV (RBC) [Entitic vol] 92.0 fL Normal 83.5-101 [facility] Comment on above: Performed By: #### B MP, SCAN CBC ####[place] [address] [place] [address] [facility] Mean Corpuscular HGB Conc 32.5 g/dL Normal 32.5-35.6 [facility] Comment on above: Performed By: #### B MP, SCAN CBC ####[place] [address] [place] [address] [facility] Monocytes (Bld) [#/Vol] 0.8 10*3/uL Normal 0.0-0.8 [facility] Comment on above: Performed By: #### B MP, SCAN CBC ####[address] [address] [facility] Monocytes/100 WBC (Bld) 4.3 % Normal . [facility] Comment on above: Performed By: #### B MP, SCAN CBC ####[place] [address] [place] [address] [facility] Neutrophils (Bld) [#/Vol] 16.2 10*3/uL High 1.8-7.7 [facility] Comment on above: Performed By: #### B MP, SCAN CBC ####[place] [address] [place] [address] [facility] Neutrophils/100 WBC (Bld) 91.8 % Normal . [facility] Comment on above: Performed By: #### B MP, SCAN CBC ####[place] [address] [place] [address] [facility] NRBC% 0.1 /100{WBC} Normal 0-0.5 [facility] Comment on above: Performed By: #### B MP, SCAN CBC ####[place] [address] [place] [address] [facility] Platelet Estimate Normal Normal Normal [facility] Comment on above: Performed By: #### B MP, SCAN CBC ####[place] [id number] [facility] Platelet mean volume (Bld) [Entitic vol] 7.4 fL Normal 6.6-10.1 [facility] Comment on above: Performed By: #### B MP, SCAN CBC ####[place] [id number] [facility] Platelet Morphology Normal Normal Normal [facility] Comment on above: Result Comment: PERF ORMED BY:[address] [place], [place] [phone] MEDICAL DIRECTORNATI LAUREN M.D. Performed By: #### B MP, SCAN CBC ####[place] [id number] [facility] Platelets (Bld) [#/Vol] 391 10*3/uL Normal 150-450 [facility] Comment on above: Performed By: #### B MP, SCAN CBC ####[place] [id number] [facility] Polychromasia Moderate Normal [facility] Comment on above: Performed By: #### B MP, SCAN CBC ####[place] [id number] [facility] RBC (Bld) [#/Vol] 3.58 10*6/uL Low 3.90-5.60 [facility] Comment on above: Performed By: #### B MP, SCAN CBC ####[place] [id number] [facility] WBC (Bld) [#/Vol] 17.7 10*3/uL High 4.1-10.5 [facility] Comment on above: Performed By: #### B MP, SCAN CBC ####[place] [id number] [facility] XR chest 1V portableon 11-08 XR chest 1V portable Normal [facility] XR chest 1V portable Normal [facility] Arterial Blood Gason 023 ABG Base Excess 1.0 mmol/L Normal -3.0-3.0 [facility] Comment on above: Performed By: #### A BG ####Point of Care testing, ABG Frac Inspired O2 100 % Normal [facility] Comment on above: Performed By: #### A BG ####Point of Care testing, ABG Oxygen Content 7.4 mmol/L Normal 6.6-9.7 [facility] Comment on above: Performed By: #### A BG ####Point of Care testing, ABG Oxygen Saturation 98.0 % Normal 95.0-100.0 [facility] Comment on above: Performed By: #### A BG ####Point of Care testing, ABG PCO2 60.2 mm[Hg] Off scale high 35.0-45.0 [facility] Comment on above: Performed By: #### A BG ####Point of Care testing, ABG PEEP 15 [facility] Comment on above: Performed By: #### A BG ####Point of Care testing, ABG PH 7.30 Low 7.35-7.45 [facility] Comment on above: Performed By: #### A BG ####Point of Care testing, ABG PO2 115.1 mm[Hg] High 80.0-100.0 [facility] Comment on above: Performed By: #### A BG ####Point of Care testing, ABG TV 500 mL [facility] Comment on above: Performed By: #### A BG ####Point of Care testing, CO2 [Moles/Vol] 30.5 mmol/L High 23.0-27.0 [facility] Comment on above: Performed By: #### A BG ####Point of Care testing, HCO3 (Bld) [Moles/Vol] 28.6 mmol/L Normal 23.0-29.0 [facility] Comment on above: Performed By: #### A BG ####Point of Care testing, Respiratory Critical Normal [facility] Comment on above: Result Comment: Crit ical Value called on: 11/07/2022 at 09:15PERFORMED BY:[facility] [place], [place] [phone] MEDICAL DIRECTORNATI LAUREN M.D. Performed By: #### A BG ####Point of Care testing, Set Respiratory Rate 18 [facility] Comment on above: Performed By: #### A BG ####Point of Care testing, VBG Draw Site Right Radial [facility] Comment on above: Performed By: #### A BG ####Point of Care testing, Ventilator Mode AC [facility] Comment on above: Performed By: #### A BG ####Point of Care testing, ABG Base Excess 1.8 mmol/L Normal -3.0-3.0 [facility] Comment on above: Performed By: #### A BG ####Point of Care testing, ABG Frac Inspired O2 100 % [facility] Comment on above: Performed By: #### A BG ####Point of Care testing, ABG Oxygen Content 7.6 mmol/L Normal 6.6-9.7 [facility] Comment on above: Performed By: #### A BG ####Point of Care testing, ABG Oxygen Saturation 91.2 % Low 95.0-100.0 [facility] Comment on above: Performed By: #### A BG ####Point of Care testing, ABG PCO2 41.8 mm[Hg] Normal 35.0-45.0 [facility] Comment on above: Performed By: #### A BG ####Point of Care testing, ABG PEEP 10 [facility] Comment on above: Performed By: #### A BG ####Point of Care testing, ABG PH 7.42 Normal 7.35-7.45 [facility] Comment on above: Performed By: #### A BG ####Point of Care testing, ABG PO2 56.9 mm[Hg] Low 80.0-100.0 [facility] Comment on above: Performed By: #### A BG ####Point of Care testing, ABG Pressure Support 8.0 [facility] Comment on above: Performed By: #### A BG ####Point of Care testing, CO2 [Moles/Vol] 27.7 mmol/L High 23.0-27.0 [facility] Comment on above: Performed By: #### A BG ####Point of Care testing, HCO3 (Bld) [Moles/Vol] 26.4 mmol/L Normal 23.0-29.0 [facility] Comment on above: Performed By: #### A BG ####Point of Care testing, Oxygen Device BiPAP [facility] Comment on above: Performed By: #### A BG ####Point of Care testing, Respiratory Critical [facility] Comment on above: Result Comment: Crit ical Value called on: 11/07/2022 at 05:41PERFORMED BY:[facility] [place], [place] [phone] MEDICAL DIRECTORNATI LAUREN M.D. Performed By: #### A BG ####Point of Care testing, VBG Draw Site Right Radial [facility] Comment on above: Performed By: #### A BG ####Point of Care testing, Bacteria identification by s terile body fluid cultureOrdered By: Sanjay Holt on 11-07-2022 Bacteria identified Sterile body fluid culture Nom (Unsp spec) Not indicated. . [facility] Bacteria identification dete ction in isolate by cultureOrdered By: Sanjay Holt on 11-07-2022 Bacteria Identification Cx Ql (Isol) Not indicated. . [facility] Comprehensive Metabolic Pane tiago 11-07-2022 Albumin [Mass/Vol] 2.9 g/dL Low 3.5-5.7 [facility] Comment on above: Performed By: #### C MP, SCAN CBC ####[facility] Mrl6955 [place] [address] [facility] Albumin/Globulin [Mass ratio] 0.9 {ratio} [facility] Comment on above: Performed By: #### C MP, SCAN CBC ####[facility] Kpw8815 [place] [address] [place] ALP [Catalytic activity/Vol] 107 U/L High 34-104 [facility] Comment on above: Performed By: #### C MP, SCAN CBC ####[facility] Oop0455 [place] [address] [facility] ALT [Catalytic activity/Vol] 38 U/L Normal 7-52 [facility] Comment on above: Performed By: #### C MP, SCAN CBC ####[facility] Nan6930 [place] [address] [facility] Anion gap [Moles/Vol] 11.7 mmol/L Normal 6.0-15.0 [facility] Comment on above: Performed By: #### C MP, SCAN CBC ####[facility] Jbe2263 [place] [address] [facility] AST [Catalytic activity/Vol] 32 U/L Normal 13-39 [facility] Comment on above: Performed By: #### C MP, SCAN CBC ####[facility] Rkb8875 [place] [address] [facility] Bilirubin [Mass/Vol] 0.5 mg/dL Normal 0.3-1.0 [facility] Comment on above: Performed By: #### C MP, SCAN CBC ####[facility] Apn4877 [place] [address] [facility] Calcium [Mass/Vol] 8.4 mg/dL Low 8.6-10.3 [facility] Comment on above: Performed By: #### C MP, SCAN CBC ####[facility] Ntu4393 [place] [address] [place] Chloride [Moles/Vol] 99 mmol/L Normal 98-107 [facility] Comment on above: Performed By: #### C MP, SCAN CBC ####[facility] Oaw6256 [place] [address] [place] CO2 [Moles/Vol] 27.6 mmol/L Normal 21.0-31.0 [facility] Comment on above: Performed By: #### C MP, SCAN CBC ####[facility] Wqu6522 [place] [address] [facility] Creatinine [Mass/Vol] 0.55 mg/dL Low 0.70-1.30 [facility] Comment on above: Performed By: #### C MP, SCAN CBC ####[facility] Nvk7851 [place] [address] [place] Creatinine Clr Calc Pharmacy 197.78 [facility] Comment on above: Result Comment: PERF ORMED BY:[address] [place], [place] [phone] MEDICAL DIRECTORNATI LAUREN M.D. Performed By: #### C MP, SCAN CBC ####[facility] Hnq3554 [place] [address] [place] GFR/1.73 sq M.predicted MDRD (S/P/Bld) [Vol rate/Area] mL/min/{1.73_m2} [facility] Comment on above: Performed By: #### C MP, SCAN CBC ####[place] [address] [place] [address] [facility] Globulin (S) [Mass/Vol] 3.4 g/dL [facility] Comment on above: Performed By: #### C MP, SCAN CBC ####[address] [address] [facility] Glucose [Mass/Vol] 128 mg/dL High 70-100 [facility] Comment on above: Result Comment: [place] Glucose Reference Range is dependent on time and content of last meal. Glucose of more than 200 mg/dL in a nonstressed, ambulatory subject supports the diagnosis of Diabetes Mellitus. ADA recommended reference range Performed By: #### C MP, SCAN CBC ####[address] [address] [facility] Potassium [Moles/Vol] 4.3 mmol/L Normal 3.5-5.1 [facility] Comment on above: Performed By: #### C MP, SCAN CBC ####[facility] J[address] [place] [address] [address] [facility] Protein [Mass/Vol] 6.3 g/dL Low 6.4-8.9 [facility] Comment on above: Performed By: #### C MP, SCAN CBC ####[facility] [address] [place] [address] [address] [address] Sodium [Moles/Vol] 134 mmol/L Low 136-145 [facility] Comment on above: Performed By: #### C MP, SCAN CBC ####[facility] Xwd24[address] [place] [id number] [facility] Urea nitrogen [Mass/Vol] 20 mg/dL Normal 7-25 [facility] Comment on above: Performed By: #### C MP, SCAN CBC ####[facility] Hfw[address]328 [place] [id number] [facility] ECG 12 lead ECGon 11-07-2022 ECG 12 lead ECG Normal [facility] ECG 12 lead ECG Normal [facility] ECG 12 lead ECG Normal [facility] Legionella Pneu 1-6 Antibodi eson 11-07-2022 Legionella Pneu 1-6 Antibodies <0.91 Normal 0.00-0.90 [facility] Comment on above: Order Comment: SPECI MEN HEMOLYZED NEEDS REDRAWN PLEASE Result Comment: Nega tive <0.91 Equivocal 0.91 - 1.09 Positive >1.09 This assay detects IgG/IgM/IgA antibodies to L. pneumophila Groups 1-6 by the EIA method. Performed at: [facility] [address] [id number] Back Shoe Worker: Marla Bravo MD, Phone: [phone] BY:[address] [place], [place] [phone] MEDICAL DIRECTORNATI LAUREN M.D. Performed By: #### L EG PNE AB ####[facility] , Legionella Pneumophilia Ag, Uron 11-07-2022 Legionella Pneumophilia Ag, Ur Negative Normal Negative [facility] Comment on above: Order Comment: SOURC E OF SPECIMEN: earl Result Comment: Pres umptive negative for L. pneumophila serogroup 1 antigen in urine, suggesting no recent or current infection. Legionnaires' disease cannot be ruled out since other serogroups and species may also cause disease. Performed at: [facility] [address] [id number] Back Shoe Worker: Marla Bravo MD, Phone: [phone] BY:[facility] NGOZ[place]osalba[place], [place] [phone] MEDICAL DIRECTORNATI LAUREN M.D. Performed By: #### U RLEGIONELLA ####[facility] , Legionella pneumophila type 1-6 antibody assayOrdered By: Sanjay Holt on 11-07-2022 L. pneumophila 1+2+3+4+5+6 Ab (S) [Titer] <0.91 OD ratio 0.00-0.90 [facility] Comment on above: Negative <0.91 Equiv ocal 0.91 - 1.09 Positive >1.09 This assay detects IgG/IgM/IgA antibodies to L. pneumophila Groups 1-6 by the EIA method.Performed at: [facility] [address] [id number] Director: Marla Bravo MD, Phone: [phone] Macrocytes LM Ql (Bld)Ordere d By: Netta Wiseman on 11-07-2022 Macrocytes Ql (Bld) Slight [facility] No Panel InformationOrdered By: Sanjay Holt on 11-07-2022 Strep pneumoniae Special Info See comment . [facility] Comment on above: [employer] standards require aculture to be performed on CSF specimens submitted forbacterial antigen testing. ([id number] [id number]) Urine specimenswill not be cultured.Performed at: [facility] [address] [id number] Director: Marla Bravo MD, Phone: [phone] No Panel InformationOrdered By: Netta Wiseman on 11-07-2022 Blood Gas Pressure Support 8.0 cmH2O [facility] Oxygen Delivery Device Bipap [facility] Scan and CBCon 11-07-2022 Anisocytosis Ql (Bld) Slight Normal [facility] Comment on above: Performed By: #### C MP, SCAN CBC ####[facility] [address] [place] [address] [facility] Basophils (Bld) [#/Vol] 0.1 10*3/uL Normal 0.0-0.2 [facility] Comment on above: Performed By: #### C MP, SCAN CBC ####[address] Basophils/100 WBC (Bld) 0.3 % Normal . [facility] Comment on above: Performed By: #### C MP, SCAN CBC ####[address] Eosinophils (Bld) [#/Vol] 0.0 10*3/uL Normal 0.0-0.45 [facility] Comment on above: Performed By: #### C MP, SCAN CBC ####[address] Eosinophils/100 WBC (Bld) 0.0 % Normal . [facility] Comment on above: Performed By: #### C MP, SCAN CBC ####[address] Erythrocyte distribution width (RBC) [Ratio] 14.0 % Normal 12.0-14.8 [facility] Comment on above: Performed By: #### C MP, SCAN CBC ####[address] Hematocrit (Bld) [Volume fraction] 35.1 % Low 38.8-50.0 [facility] Comment on above: Performed By: #### C MP, SCAN CBC ####[address] Hemoglobin (Bld) [Mass/Vol] 11.5 g/dL Low 13.0-17.0 [facility] Comment on above: Performed By: #### C MP, SCAN CBC ####[address] Hypochromasia Slight Normal [facility] Comment on above: Performed By: #### C MP, SCAN CBC ####[address] Lymphocytes (Bld) [#/Vol] 1.1 10*3/uL Normal 1.00-4.8 [facility] Comment on above: Performed By: #### C MP, SCAN CBC ####[address] Lymphocytes/100 WBC (Bld) 3.3 % Normal . [facility] Comment on above: Performed By: #### C MP, SCAN CBC ####[address] Macrocytosis Slight Normal [facility] Comment on above: Performed By: #### C MP, SCAN CBC ####[address] MCH (RBC) [Entitic mass] 29.8 pg Normal 27.5-35.2 [facility] Comment on above: Performed By: #### C MP, SCAN CBC ####[address] MCV (RBC) [Entitic vol] 91.0 fL Normal 83.5-101 [facility] Comment on above: Performed By: #### C MP, SCAN CBC ####[address] Mean Corpuscular HGB Conc 32.8 g/dL Normal 32.5-35.6 [facility] Comment on above: Performed By: #### C MP, SCAN CBC ####[address] Monocytes (Bld) [#/Vol] 0.8 10*3/uL Normal 0.0-0.8 [facility] Comment on above: Performed By: #### C MP, SCAN CBC ####[address] Monocytes/100 WBC (Bld) 2.4 % Normal . [facility] Comment on above: Performed By: #### C MP, SCAN CBC ####[address] Neutrophils (Bld) [#/Vol] 30.7 10*3/uL High 1.8-7.7 [facility] Comment on above: Performed By: #### C MP, SCAN CBC ####[place] [place] [address] [facility] Neutrophils/100 WBC (Bld) 94.0 % Normal . [facility] Comment on above: Performed By: #### C MP, SCAN CBC ####[place] [address] [place] [address] [facility] NRBC% 0.1 /100{WBC} Normal 0-0.5 [facility] Comment on above: Performed By: #### C MP, SCAN CBC ####[address] [address] [facility] Platelet Estimate Normal Normal Normal [facility] Comment on above: Performed By: #### C MP, SCAN CBC ####[place] [address] [place] [address] [facility] Platelet mean volume (Bld) [Entitic vol] 7.9 fL Normal 6.6-10.1 [facility] Comment on above: Performed By: #### C MP, SCAN CBC ####[address] [address] [facility] Platelet Morphology Normal Normal Normal [facility] Comment on above: Result Comment: PERF ORMED BY:[address] [place], [place] [phone] MEDICAL DIRECTORNATI LAUREN M.D. Performed By: #### C MP, SCAN CBC ####[address] [address] [facility] Platelets (Bld) [#/Vol] 409 10*3/uL Normal 150-450 [facility] Comment on above: Performed By: #### C MP, SCAN CBC ####[address] [address] [facility] Polychromasia Slight Normal [facility] Comment on above: Performed By: #### C MP, SCAN CBC ####[address] [address] [facility] RBC (Bld) [#/Vol] 3.85 10*6/uL Low 3.90-5.60 [facility] Comment on above: Performed By: #### C MP, SCAN CBC ####[facility] Ikh3989 [place] [address] [facility] Stomatocytes Slight Normal [facility] Comment on above: Performed By: #### C MP, SCAN CBC ####[facility] [place] [address] [facility] WBC (Bld) [#/Vol] 32.6 10*3/uL High 4.1-10.5 [facility] Comment on above: Performed By: #### C MP, SCAN CBC ####[facility] [place] [address] [facility] Specimen source identifiedOr dered By: Sanjay Holt on 11-07-2022 Specimen source Nom (Unsp spec) Urine . [facility] Strep Pneumoniae Ag, Uron Body Fluid Culture Not indicated. Normal . [facility] Comment on above: Order Comment: SOURC E OF SPECIMEN: earl Performed By: #### U R STP AG ####[facility] , Organism ID Not indicated. Normal . [facility] Comment on above: Order Comment: SOURC E OF SPECIMEN: earl Performed By: #### U R STP AG ####[facility] , Please Note: Normal . [facility] Comment on above: Order Comment: SOURC E OF SPECIMEN: earl Result Comment: Thomas ege of [place] Pathologists standards require a culture to be performed on CSF specimens submitted for bacterial antigen testing. (CAP [id number]) Urine specimens will not be cultured. Performed at: - [address] [id number] Back Shoe Worker: Marla Bravo MD, Phone: [phone] BY:[place] [address] [place] [place], [place] [phone] MEDICAL DIRECTORNATI LAUREN M.D. Performed By: #### U R STP AG ####[facility] , Specimen source Nom (Unsp spec) Urine Normal . [facility] Comment on above: Order Comment: SOURC E OF SPECIMEN: earl Performed By: #### U R STP AG ####[facility] , Streptococcus Pneumoniae Ag Negative Normal Negative [facility] Comment on above: Order Comment: SOURC E OF SPECIMEN: earl Performed By: #### U R STP AG ####[facility] , Streptococcus pneumoniae ant igen detectionOrdered By: Sanjay Holt on 11-07-2022 S. pneumoniae Ag Ql (Unsp spec) Negative Negative [facility] Triglycerideson 11-07-2022 Triglyceride [Mass/Vol] 222 mg/dL High 0-149 [facility] Comment on above: Order Comment: Comme nt please run off blood drawn this morning Result Comment: TRIG ATP III CLASSIFICATION TRIG less than 150 mg/dL Normal TRIG 150-199 mg/dL Borderline high TRIG 200-500 mg/dL High TRIG greater than 500 mg/dL Very high Standard traceable to the Center for Disease Conrtrol and Prevention (CDC) test method.PERFORMED BY:[facility] [place] [place], [place] [phone] MEDICAL DIRECTORNATI LAUREN M.D. Performed By: #### T RIG ####[facility] [address] [place] [address] [address] [facility] Urine Legionella antigen det ectionOrdered By: Sanjay Holt on 11-07-2022 Legionella sp Ag Ql (U) Negative Negative [facility] Comment on above: Presumptive negative for L. pneumophila serogroup 1 antigenin urine, suggesting no recent or current infection.Legionnaires' disease cannot be ruled out since otherserogroups and species may also cause disease.Performed at: [facility] [address] [id number] Director: Marla Bravo MD, Phone: [phone] XR chest 1V portableon 11-07 XR chest 1V portable Normal [facility] XR chest 1V portable Normal [facility] CT chest w conon 11-06-2022 CT chest w con Normal [facility] Comprehensive Metabolic Pane tiago 11-06-2022 Albumin [Mass/Vol] 2.8 g/dL Low 3.5-5.7 [facility] Comment on above: Order Comment: draw at 0500 Performed By: #### C MP, SCAN CBC ####[facility] [address] [place] [address] [facility] Albumin/Globulin [Mass ratio] 0.8 {ratio} Normal [facility] Comment on above: Order Comment: draw at 0500 Performed By: #### C MP, SCAN CBC ####[facility] Trm[address] [place] [address] [facility] ALP [Catalytic activity/Vol] 96 U/L Normal 34-104 [facility] Comment on above: Order Comment: draw at 0500 Performed By: #### C MP, SCAN CBC ####[facility] [address] [place] [address] [facility] ALT [Catalytic activity/Vol] 17 U/L Normal 7-52 [facility] Comment on above: Order Comment: draw at 0500 Performed By: #### C MP, SCAN CBC ####[facility] Ysr[address] [place] [address] [facility] Anion gap [Moles/Vol] 11.9 mmol/L Normal 6.0-15.0 [facility] Comment on above: Order Comment: draw at 0500 Performed By: #### C MP, SCAN CBC ####[place] [address] [place] [address] [facility] AST [Catalytic activity/Vol] 11 U/L Low 13-39 [facility] Comment on above: Order Comment: draw at 0500 Performed By: #### C MP, SCAN CBC ####[facility] [place] [address] [place] Bilirubin [Mass/Vol] 0.5 mg/dL Normal 0.3-1.0 [facility] Comment on above: Order Comment: draw at 0500 Performed By: #### C MP, SCAN CBC ####[facility] [place] [address] [place] Calcium [Mass/Vol] 8.4 mg/dL Low 8.6-10.3 [facility] Comment on above: Order Comment: draw at 0500 Performed By: #### C MP, SCAN CBC ####[address] [place] [address] [facility] Chloride [Moles/Vol] 101 mmol/L Normal 98-107 [facility] Comment on above: Order Comment: draw at 0500 Performed By: #### C MP, SCAN CBC ####[place] [id number] [facility] CO2 [Moles/Vol] 26.8 mmol/L Normal 21.0-31.0 [facility] Comment on above: Order Comment: draw at 0500 Performed By: #### C MP, SCAN CBC ####[place] [id number] [facility] Creatinine [Mass/Vol] 0.51 mg/dL Low 0.70-1.30 [facility] Comment on above: Order Comment: draw at 0500 Performed By: #### C MP, SCAN CBC ####[place] [id number] [facility] Creatinine Clr Calc Pharmacy 213.29 [facility] Comment on above: Order Comment: draw at 0500 Result Comment: PERF ORMED BY:[address] [place], [place] [phone] MEDICAL ALEKSANDAR LAUREN M.D. Performed By: #### C MP, SCAN CBC ####[place] [id number] [facility] GFR/1.73 sq M.predicted MDRD (S/P/Bld) [Vol rate/Area] mL/min/{1.73_m2} [facility] Comment on above: Order Comment: draw at 0500 Performed By: #### C MP, SCAN CBC ####[place] [address] [place] [id number] [facility] Globulin (S) [Mass/Vol] 3.4 g/dL [facility] Comment on above: Order Comment: draw at 0500 Performed By: #### C MP, SCAN CBC ####[facility] [place] [address] [facility] Glucose [Mass/Vol] 127 mg/dL High 70-100 [facility] Comment on above: Order Comment: draw at 0500 Result Comment: [place] Glucose Reference Range is dependent on time and content of last meal. Glucose of more than 200 mg/dL in a nonstressed, ambulatory subject supports the diagnosis of Diabetes Mellitus. ADA recommended reference range Performed By: #### C MP, SCAN CBC ####[place] [place] [address] [facility] Potassium [Moles/Vol] 3.7 mmol/L Normal 3.5-5.1 [facility] Comment on above: Order Comment: draw at 0500 Performed By: #### C MP, SCAN CBC ####[address] [place] [address] [facility] Protein [Mass/Vol] 6.2 g/dL Low 6.4-8.9 [facility] Comment on above: Order Comment: draw at 0500 Performed By: #### C MP, SCAN CBC ####[place] [place] [address] [facility] Sodium [Moles/Vol] 136 mmol/L Normal 136-145 [facility] Comment on above: Order Comment: draw at 0500 Performed By: #### C MP, SCAN CBC ####[place] [place] [address] [facility] Urea nitrogen [Mass/Vol] 15 mg/dL Normal 7-25 [facility] Comment on above: Order Comment: draw at 0500 Performed By: #### C MP, SCAN CBC ####[address] [place] [place] [address] [facility] Helmet cell detectionOrdered By: Netta Wiseman on 11-06-2022 Helmet cells LM Ql (Bld) Slight [facility] Scan and CBCon 11-06-2022 Basophils (Bld) [#/Vol] 0.1 10*3/uL Normal 0.0-0.2 [facility] Comment on above: Order Comment: draw at 0500 Performed By: #### C MP, SCAN CBC ####[address] Basophils/100 WBC (Bld) 0.2 % Normal . [facility] Comment on above: Order Comment: draw at 0500 Performed By: #### C MP, SCAN CBC ####[address] Eosinophils (Bld) [#/Vol] 0.0 10*3/uL Normal 0.0-0.45 [facility] Comment on above: Order Comment: draw at 0500 Performed By: #### C MP, SCAN CBC ####[address] Eosinophils/100 WBC (Bld) 0.0 % Normal . [facility] Comment on above: Order Comment: draw at 0500 Performed By: #### C MP, SCAN CBC ####[address] Erythrocyte distribution width (RBC) [Ratio] 13.9 % Normal 12.0-14.8 [facility] Comment on above: Order Comment: draw at 0500 Performed By: #### C MP, SCAN CBC ####[address] Helmet Cells Slight Normal [facility] Comment on above: Order Comment: draw at 0500 Performed By: #### C MP, SCAN CBC ####[address] Hematocrit (Bld) [Volume fraction] 34.6 % Low 38.8-50.0 [facility] Comment on above: Order Comment: draw at 0500 Performed By: #### C MP, SCAN CBC ####[address] Hemoglobin (Bld) [Mass/Vol] 11.2 g/dL Low 13.0-17.0 [facility] Comment on above: Order Comment: draw at 0500 Performed By: #### C MP, SCAN CBC ####[place] [id number] [facility] Hypochromasia Slight Normal [facility] Comment on above: Order Comment: draw at 0500 Performed By: #### C MP, SCAN CBC ####[address] Lymphocytes (Bld) [#/Vol] 1.1 10*3/uL Normal 1.00-4.8 [facility] Comment on above: Order Comment: draw at 0500 Performed By: #### C MP, SCAN CBC ####[address] Lymphocytes/100 WBC (Bld) 3.5 % Normal . [facility] Comment on above: Order Comment: draw at 0500 Performed By: #### C MP, SCAN CBC ####[address] MCH (RBC) [Entitic mass] 29.7 pg Normal 27.5-35.2 [facility] Comment on above: Order Comment: draw at 0500 Performed By: #### C MP, SCAN CBC ####[address] MCV (RBC) [Entitic vol] 91.8 fL Normal 83.5-101 [facility] Comment on above: Order Comment: draw at 0500 Performed By: #### C MP, SCAN CBC ####[address] Mean Corpuscular HGB Conc 32.4 g/dL Low 32.5-35.6 [facility] Comment on above: Order Comment: draw at 0500 Performed By: #### C MP, SCAN CBC ####[address] Monocytes (Bld) [#/Vol] 1.0 10*3/uL High 0.0-0.8 [facility] Comment on above: Order Comment: draw at 0500 Performed By: #### C MP, SCAN CBC ####[address] Monocytes/100 WBC (Bld) 3.3 % Normal . [facility] Comment on above: Order Comment: draw at 0500 Performed By: #### C MP, SCAN CBC ####[address] [address] [facility] Neutrophils (Bld) [#/Vol] 28.0 10*3/uL High 1.8-7.7 [facility] Comment on above: Order Comment: draw at 0500 Performed By: #### C MP, SCAN CBC ####[place] [id number] [facility] Neutrophils/100 WBC (Bld) 93.0 % Normal . [facility] Comment on above: Order Comment: draw at 0500 Performed By: #### C MP, SCAN CBC ####[address] [address] [facility] NRBC% 0.0 /100{WBC} Normal 0-0.5 [facility] Comment on above: Order Comment: draw at 0500 Performed By: #### C MP, SCAN CBC ####[place] [id number] [facility] Platelet Estimate Normal Normal Normal [facility] Comment on above: Order Comment: draw at 0500 Performed By: #### C MP, SCAN CBC ####[address] [address] [facility] Platelet mean volume (Bld) [Entitic vol] 8.0 fL Normal 6.6-10.1 [facility] Comment on above: Order Comment: draw at 0500 Performed By: #### C MP, SCAN CBC ####[place] [id number] [facility] Platelet Morphology Normal Normal Normal [facility] Comment on above: Order Comment: draw at 0500 Result Comment: PERF ORMED BY:[address] [address] [address] [place], [place] [phone] MEDICAL ALEKSANDAR LAUREN M.D. Performed By: #### C MP, SCAN CBC ####[address] [address] [place] Platelets (Bld) [#/Vol] 346 10*3/uL Normal 150-450 [facility] Comment on above: Order Comment: draw at 0500 Performed By: #### C MP, SCAN CBC ####[facility] [address] [place] [address] [facility] RBC (Bld) [#/Vol] 3.77 10*6/uL Low 3.90-5.60 [facility] Comment on above: Order Comment: draw at 0500 Performed By: #### C MP, SCAN CBC ####[facility] Ikg[address] [place] [address] [facility] WBC (Bld) [#/Vol] 30.2 10*3/uL High 4.1-10.5 [facility] Comment on above: Order Comment: draw at 0500 Performed By: #### C MP, SCAN CBC ####[facility] [place] [address] [facility] Aerobic Cultureon 11-05-2022 Aerobic Culture [facility] Comment on above: Performed By: #### G S, AERC ####[place] [address] [place] [id number] [facility] Arterial Blood Gason 023 ABG Base Excess 0.9 mmol/L Normal -3.0-3.0 [facility] Comment on above: Performed By: #### A BG ####Point of Care testing, ABG Frac Inspired O2 55 % [facility] Comment on above: Performed By: #### A BG ####Point of Care testing, ABG Liter Flow 14 [facility] Comment on above: Performed By: #### A BG ####Point of Care testing, ABG Oxygen Content 6.6 mmol/L Normal 6.6-9.7 [facility] Comment on above: Performed By: #### A BG ####Point of Care testing, ABG Oxygen Saturation 89.0 % Low 95.0-100.0 [facility] Comment on above: Performed By: #### A BG ####Point of Care testing, ABG PCO2, Temp Corrected 40.4 mm[Hg] Normal 35.0-45.0 [facility] Comment on above: Performed By: #### A BG ####Point of Care testing, ABG PH, Temp Corrected 7.41 Normal 7.35-7.45 [facility] Comment on above: Performed By: #### A BG ####Point of Care testing, ABG PO2, Temperature Corrected 61.0 mm[Hg] Low 80.0-100.0 [facility] Comment on above: Performed By: #### A BG ####Point of Care testing, CO2 [Moles/Vol] 25.8 mmol/L Normal 23.0-27.0 [facility] Comment on above: Performed By: #### A BG ####Point of Care testing, HCO3 (Bld) [Moles/Vol] 24.7 mmol/L Normal 23.0-29.0 [facility] Comment on above: Performed By: #### A BG ####Point of Care testing, Oxygen Device Venti Mask [facility] Comment on above: Performed By: #### A BG ####Point of Care testing, Respiratory Critical Normal [facility] Comment on above: Result Comment: Crit ical Value called on: 11/05/2022 at 09:39PERFORMED BY:[place] [address] [place], [place] [phone] MEDICAL DIRECTORNATI LAUREN M.D. Performed By: #### A BG ####Point of Care testing, VBG Draw Site Right Radial [facility] Comment on above: Performed By: #### A BG ####Point of Care testing, B-Type Natriuretic Peptideon 11-05-2022 Natriuretic peptide B (Bld) [Mass/Vol] 130.0 pg/mL High 5-100 [facility] Comment on above: Result Comment: PERF ORMED BY:[place] [address] [place], [place] [phone] MEDICAL DIRECTORNATI LAUREN M.D. Performed By: #### B CONSTRUCTION ADMINISTRATOR, LACTIC, HS TROP, HEPATIC ####[address]#### PROCALCITONIN ####[facility] , Basic Metabolic Panelon 04- Anion gap [Moles/Vol] 10.1 mmol/L Normal 6.0-15.0 [facility] Comment on above: Performed By: #### E SR, BMP, MG, CBC ####[address] Calcium [Mass/Vol] 7.8 mg/dL Low 8.6-10.3 [facility] Comment on above: Performed By: #### E SR, BMP, MG, CBC ####[address] Chloride [Moles/Vol] 101 mmol/L Normal 98-107 [facility] Comment on above: Performed By: #### E SR, BMP, MG, CBC ####[address] CO2 [Moles/Vol] 27.1 mmol/L Normal 21.0-31.0 [facility] Comment on above: Performed By: #### E SR, BMP, MG, CBC ####[address] Creatinine [Mass/Vol] 0.59 mg/dL Low 0.70-1.30 [facility] Comment on above: Performed By: #### E SR, BMP, MG, CBC ####[address] Creatinine Clr Calc Pharmacy 169.08 [facility] Comment on above: Performed By: #### E SR, BMP, MG, CBC ####[address] GFR/1.73 sq M.predicted MDRD (S/P/Bld) [Vol rate/Area] mL/min/{1.73_m2} [facility] Comment on above: Performed By: #### E SR, BMP, MG, CBC ####[place] [place] [address] [facility] Glucose [Mass/Vol] 135 mg/dL High 70-100 [facility] Comment on above: Result Comment: [place] Glucose Reference Range is dependent on time and content of last meal. Glucose of more than 200 mg/dL in a nonstressed, ambulatory subject supports the diagnosis of Diabetes Mellitus. ADA recommended reference range Performed By: #### E SR, BMP, MG, CBC ####[place] [place] [address] [facility] Potassium [Moles/Vol] 3.2 mmol/L Low 3.5-5.1 [facility] Comment on above: Performed By: #### E SR, BMP, MG, CBC ####[place] [id number] [facility] Sodium [Moles/Vol] 135 mmol/L Low 136-145 [facility] Comment on above: Performed By: #### E SR, BMP, MG, CBC ####[place] [id number] [facility] Urea nitrogen [Mass/Vol] 13 mg/dL Normal 7-25 [facility] Comment on above: Performed By: #### E SR, BMP, MG, CBC ####[address] [address] [facility] BioFire Not Detectedon 11-05 BioFire Not Detected Not detected Normal Not Detecte [facility] Comment on above: Result Comment: This is a duplicate RP2.1 COVID (PCR) result to be used for statistical tracking purpose only.PERFORMED BY:[place] [address] [place] [place], [place] [phone] MEDICAL DIRECTORNATI LAUREN M.D. Performed By: #### B IOFIRECOVNOTDE, RESP PANEL UPP. ####[address] [address] [facility] Blood Cultureon 11-05-2022 Bacteria identified Cx Nom (Bld) NO GROWTH 5 DAYS PERFORMED BY: [facility] [address] [place] [id number] PATHOLOGIST AIRCRAFT FUSELAGE FRAMER NATI LAUREN M.D. [facility] Comment on above: Performed By: #### C UBLD ####[facility] [address] [place] [id number] [facility] CARDIAC RON 3-6on 3 CK [Catalytic activity/Vol] 45 U/L Normal 39-308 [facility] Comment on above: Performed By: #### C MREP #### [facility] [address] [place], [place] [address] Dr. Epi Goldstein CK.MB [Mass/Vol] 0.75 ng/mL Normal <=3.60 [facility] Comment on above: Performed By: #### C MREP #### [facility] [address] [place] [address] [address] Epi Goldstein HSTROP 7.0 pg/mL Normal 4.0-76.1 [facility] Comment on above: Result Comment: CUT- OFF POINTS HAVE BEEN ESTABLISHED BASED ON THE FOURTH UNIVERSAL DEFINITIONS OF MYOCARDIAL INFARCTION. THE UPPER REFERENCE LIMIT (URL) OF TROPONIN, DEFINED THE 99TH PERCENTILE OF cTnI DISTRIBUTION IN A REFERENCE POPULATION, HAS BEEN CONFIRMED THE DECISION THRESHOLD FOR [place] DIAGNOSIS. Performed By: #### C MREP #### [facility] [address] [place] [address] [address] Epi Goldstein COVID-19 Detected/Not Detect edOrdered By: Netta Wiseman on 11-05-2022 SARS-CoV-2 (COVID-19) RNA ROWENA+non-probe Ql (Nph) Not detected Not Detecte [facility] Comment on above: This is a duplicate RP2.1 COVID (PCR) result to be used for statistical tracking purpose only. Complete Blood Count Auto Di ffon 11-05-2022 Basophils (Bld) [#/Vol] 0.1 10*3/uL Normal 0.0-0.2 [facility] Comment on above: Performed By: #### E SR, BMP, MG, CBC ####[facility] [address] [place] [id number] [facility] Basophils/100 WBC (Bld) 0.5 % Normal . [facility] Comment on above: Performed By: #### E SR, BMP, MG, CBC ####[address] Eosinophils (Bld) [#/Vol] 0.1 10*3/uL Normal 0.0-0.45 [facility] Comment on above: Performed By: #### E SR, BMP, MG, CBC ####[address] Eosinophils/100 WBC (Bld) 0.5 % Normal . [facility] Comment on above: Performed By: #### E SR, BMP, MG, CBC ####[address] Erythrocyte distribution width (RBC) [Ratio] 13.2 % Normal 12.0-14.8 [facility] Comment on above: Performed By: #### E SR, BMP, MG, CBC ####[address] Hematocrit (Bld) [Volume fraction] 30.8 % Low 38.8-50.0 [facility] Comment on above: Performed By: #### E SR, BMP, MG, CBC ####[address] Hemoglobin (Bld) [Mass/Vol] 10.2 g/dL Low 13.0-17.0 [facility] Comment on above: Performed By: #### E SR, BMP, MG, CBC ####[address] Lymphocytes (Bld) [#/Vol] 1.5 10*3/uL Normal 1.00-4.8 [facility] Comment on above: Performed By: #### E SR, BMP, MG, CBC ####[address] Lymphocytes/100 WBC (Bld) 8.7 % Normal . [facility] Comment on above: Performed By: #### E SR, BMP, MG, CBC ####[address] MCH (RBC) [Entitic mass] 30.0 pg Normal 27.5-35.2 [facility] Comment on above: Performed By: #### E SR, BMP, MG, CBC ####[address] MCV (RBC) [Entitic vol] 90.7 fL Normal 83.5-101 [facility] Comment on above: Performed By: #### E SR, BMP, MG, CBC ####[address] Mean Corpuscular HGB Conc 33.1 g/dL Normal 32.5-35.6 [facility] Comment on above: Performed By: #### E SR, BMP, MG, CBC ####[address] Monocytes (Bld) [#/Vol] 1.4 10*3/uL High 0.0-0.8 [facility] Comment on above: Performed By: #### E SR, BMP, MG, CBC ####[address] Monocytes/100 WBC (Bld) 8.3 % Normal . [facility] Comment on above: Performed By: #### E SR, BMP, MG, CBC ####[address] Neutrophils (Bld) [#/Vol] 14.3 10*3/uL High 1.8-7.7 [facility] Comment on above: Performed By: #### E SR, BMP, MG, CBC ####[address] Neutrophils/100 WBC (Bld) 82.0 % Normal . [facility] Comment on above: Performed By: #### E SR, BMP, MG, CBC ####[address] NRBC% 0.1 /100{WBC} Normal 0-0.5 [facility] Comment on above: Performed By: #### E SR, BMP, MG, CBC ####[address] Platelet mean volume (Bld) [Entitic vol] 7.8 fL Normal 6.6-10.1 [facility] Comment on above: Performed By: #### E SR, BMP, MG, CBC ####[address] Platelets (Bld) [#/Vol] 319 10*3/uL Normal 150-450 [facility] Comment on above: Performed By: #### E SR, BMP, MG, CBC ####[address] RBC (Bld) [#/Vol] 3.39 10*6/uL Low 3.90-5.60 [facility] Comment on above: Performed By: #### E SR, BMP, MG, CBC ####[address] WBC (Bld) [#/Vol] 17.4 10*3/uL High 4.1-10.5 [facility] Comment on above: Performed By: #### E SR, BMP, MG, CBC ####[address] ECG 12 lead ECGon 11-05-2022 ECG 12 lead ECG Normal [facility] Erythrocyte Sedimentation Ra tristin 11-05-2022 ESR (Bld) [Velocity] 82 mm/h High 0-19 [facility] Comment on above: Result Comment: PERF ORMED BY:[address] [address] [place], [place] [id number] MEDICAL DIRECTORNATI LAUREN M.D. Performed By: #### E SR, BMP, MG, CBC ####[place] [id number] [facility] Erythrocyte sedimentation ra te by Photometric methodOrdered By: Annabel Boo on 11-05-2022 ESR Photometric method (Bld) [Velocity] 82 mm/hr 0-19 [facility] Gram Stainon 11-05-2022 Microscopic observation Gram stain Nom (Unsp spec) Normal [facility] Comment on above: Performed By: #### G S, AERC ####[address] Hepatic Panelon 11-05-2022 Albumin [Mass/Vol] 2.9 g/dL Low 3.5-5.7 [facility] Comment on above: Performed By: #### B CONSTRUCTION ADMINISTRATOR, LACTIC, HS TROP, HEPATIC ####[address]#### PROCALCITONIN ####[facility] , Albumin/Globulin [Mass ratio] 1.0 {ratio} Normal [facility] Comment on above: Performed By: #### B CONSTRUCTION ADMINISTRATOR, LACTIC, HS TROP, HEPATIC ####[address]#### PROCALCITONIN ####[facility] , ALP [Catalytic activity/Vol] 79 U/L Normal 34-104 [facility] Comment on above: Result Comment: PERF ORMED BY:[address] [place], [place] [id number] MEDICAL DIRECTORNATI LAUREN M.D. Performed By: #### B CONSTRUCTION ADMINISTRATOR, LACTIC, HS TROP, HEPATIC ####[address]#### PROCALCITONIN ####[facility] , ALT [Catalytic activity/Vol] 24 U/L Normal 7-52 [facility] Comment on above: Performed By: #### B CONSTRUCTION ADMINISTRATOR, LACTIC, HS TROP, HEPATIC ####[address]#### PROCALCITONIN ####[facility] , AST [Catalytic activity/Vol] 12 U/L Low 13-39 [facility] Comment on above: Performed By: #### B CONSTRUCTION ADMINISTRATOR, LACTIC, HS TROP, HEPATIC ####[address]#### PROCALCITONIN ####[facility] , Bilirubin [Mass/Vol] 0.4 mg/dL Normal 0.3-1.0 [facility] Comment on above: Performed By: #### B CONSTRUCTION ADMINISTRATOR, LACTIC, HS TROP, HEPATIC ####[address]#### PROCALCITONIN ####[facility] , Bilirubin,Indirect 0.3 mg/dL Normal [facility] Comment on above: Performed By: #### B CONSTRUCTION ADMINISTRATOR, LACTIC, HS TROP, HEPATIC ####[address]#### PROCALCITONIN ####[facility] , Bilirubin.indirect [Mass/Vol] 0.10 mg/dL Normal 0.03-0.18 [facility] Comment on above: Performed By: #### B CONSTRUCTION ADMINISTRATOR, LACTIC, HS TROP, HEPATIC ####[address]#### PROCALCITONIN ####[facility] , Globulin (S) [Mass/Vol] 2.8 g/dL Normal [facility] Comment on above: Performed By: #### B CONSTRUCTION ADMINISTRATOR, LACTIC, HS TROP, HEPATIC ####[address]#### PROCALCITONIN ####[facility] , Protein [Mass/Vol] 5.7 g/dL Low 6.4-8.9 [facility] Comment on above: Performed By: #### B CONSTRUCTION ADMINISTRATOR, LACTIC, HS TROP, HEPATIC ####[place] [address] [place]#### PROCALCITONIN ####[facility] , LACTATE/LACTIC ACIDon 2022 Lactate [Moles/Vol] 1.1 mmol/L Normal 0.4-2.0 [facility] Comment on above: Performed By: #### L ACT #### [facility] [address] [address] [address] Epi Goldstein Lactate [Moles/volume] in Se rum or PlasmaOrdered By: Netta Wiseman on 11-05-2022 Lactate [Moles/Vol] 0.9 mmol/L 0.5-2.2 [facility] Lactic Acidon 11-05-2022 Lactate [Moles/Vol] 0.9 mmol/L Normal 0.5-2.2 [facility] Comment on above: Result Comment: PERF ORMED BY:[address] [place], [place] [id number] MEDICAL DIRECTORNATI LAUREN M.D. Performed By: #### B CONSTRUCTION ADMINISTRATOR, LACTIC, HS TROP, HEPATIC ####[address] [place] [address] [facility]#### PROCALCITONIN ####[facility] , Magnesiumon 11-05-2022 Magnesium [Mass/Vol] 1.9 mg/dL Normal 1.9-2.7 [facility] Comment on above: Result Comment: PERF ORMED BY:[address] [address] [place], [place] [phone] MEDICAL DIRECTORNATI LAUREN M.D. Performed By: #### E SR, BMP, MG, CBC ####[address] [place] [address] [facility] Natriuretic peptide B [Mass/ Vol]Ordered By: Netta Wiseman on 11-05-2022 Natriuretic peptide B (Bld) [Mass/Vol] 130.0 pg/mL 5-100 [facility] No Panel InformationOrdered By: Netta Wiseman on 11-05-2022 Arterial Blood pCO2 (Temp correct) 40.4 mm[Hg] 35.0-45.0 [facility] Arterial Blood pH (Temp corrected) 7.41 7.35-7.45 [facility] Arterial Blood pO2 (Temp corrected) 61.0 mm[Hg] 80.0-100.0 [facility] Blood Gas Liter Flow 14 L/min [facility] Procalcitoninon 11-05-2022 Procalcitonin 0.32 ng/mL High 0.00-0.08 [facility] Comment on above: Result Comment: A pr [...] concentrations <2 ng/mL are obtained. Performed at: [facility] [address] [id number] Back Shoe Worker: Marla Bravo MD, Phone: [phone] BY:[address] [place], [place] [id number] MEDICAL DIRECTORNATI LAUREN M.D. Performed By: #### B CONSTRUCTION ADMINISTRATOR, LACTIC, HS TROP, HEPATIC ####[place] [address] [id number] [facility]#### PROCALCITONIN ####[facility] , Respiratory (Upper) Panel, P CRon 11-05-2022 Respiratory (Upper) Panel, PCR Normal [facility] Comment on above: Performed By: #### B IOFIRECOVNOTDE, RESP PANEL UPP. ####[address] Serum procalcitonin measurem entOrdered By: Netta Wiseman on 11-05-2022 Procalcitonin [Mass/Vol] 0.32 ng/mL 0.00-0.08 [facility] Comment on above: A procalcitonin (PCT ) [...] any concentrations <2 ng/mL are obtained.Performed at: [facility] [address] [id number] Director: Marla Bravo MD, Phone: [phone] Troponin I High Sensitivityo n 11-05-2022 Troponin I High Sensitivity 17.7 pg/mL Normal 0.0-20.0 [facility] Comment on above: Result Comment: PERF ORMED BY:[facility] [place], [place] [phone] MEDICAL DIRECTORNATI LAUREN M.D. Performed By: #### B CONSTRUCTION ADMINISTRATOR, LACTIC, HS TROP, HEPATIC ####[facility] [place] [address] [facility]#### PROCALCITONIN ####[facility] , XR chest 1V portableon 11-05 XR chest 1V portable Normal [facility] CARDIAC RON ADMITon 023 CK [Catalytic activity/Vol] 67 U/L Normal 39-308 [facility] Comment on above: Performed By: #### B MP, SARA #### [facility] [address] [place] [address] Dr. Epi Goldstein CK.MB [Mass/Vol] 0.75 ng/mL Normal <=3.60 [facility] Comment on above: Performed By: #### B SARA HAMEED #### [facility] [address] [place] [address] Dr. Epi Goldstein HSTROP 6.4 pg/mL Normal 4.0-76.1 [facility] Comment on above: Result Comment: CUT- OFF POINTS HAVE BEEN ESTABLISHED BASED ON THE FOURTH UNIVERSAL DEFINITIONS OF MYOCARDIAL INFARCTION. THE UPPER REFERENCE LIMIT (URL) OF TROPONIN, DEFINED THE 99TH PERCENTILE OF cTnI DISTRIBUTION IN A REFERENCE POPULATION, HAS BEEN CONFIRMED THE DECISION THRESHOLD FOR KS DIAGNOSIS. Performed By: #### B SARA HAMEED #### [facility] [address] [place] [address] Dr. Epi Goldstein PRATIK 37 ng/mL Normal 16-96 [facility] Comment on above: Performed By: #### B SARA HAMEED #### [facility] [address] [place] [address] Dr. Epi Goldstein CBC AUTO DIFFon 11-04-2022 BASO # 0.0 103/ul Normal 0.0-0.1 [facility] Comment on above: Performed By: #### C BC #### [facility] [address] [place] [address] Dr. Epi Goldstein Basophils/100 WBC (Bld) 0.2 % Normal 0.2-2.0 [facility] Comment on above: Performed By: #### C BC #### [facility] [address] [place] [address] Dr. Epi Goldstein EO # 0.0 103/ul Normal 0.0-0.7 [facility] Comment on above: Performed By: #### C BC #### [facility] [address] [place] [address] Dr. Epi Goldstein Eosinophils/100 WBC (Bld) 0.2 % Critically low 0.9-7.0 [facility] Comment on above: Performed By: #### C BC #### [facility] [address] [place] [address] Dr. Epi Goldstein Erythrocyte distribution width (RBC) [Ratio] 12.5 % Normal 11.0-15.0 [facility] Comment on above: Performed By: #### C BC #### [facility] [address] [place] [address] Dr. Epi Goldstein Hematocrit (Bld) [Volume fraction] 35.9 % Critically low 42.0-54.0 [facility] Comment on above: Performed By: #### C BC #### [facility] [address] [place] [address] Dr. Epi Goldstein Hemoglobin (Bld) [Mass/Vol] 12.0 g/dL Critically low 14.0-18.0 [facility] Comment on above: Performed By: #### C BC #### [facility] [address] [place] [address] Dr. Epi Goldstein IG # 0.13 10e3/ul Critically high 0.00-0.03 [facility] Comment on above: Performed By: #### C BC #### [facility] [address] [place] [address] Dr. Epi Goldstein IG % 0.6 % Critically high 0.0-0.5 [facility] Comment on above: Performed By: #### C BC #### [facility] [address] [place] [address] Dr. Epi Goldstein LYMPH # 2.7 103/ul Normal 1.2-3.8 [facility] Comment on above: Performed By: #### C BC #### [facility] [address] [place] [address] Dr. Epi Goldstein Lymphocytes/100 WBC (Bld) 13.0 % Critically low 20.5-60.0 [facility] Comment on above: Performed By: #### C BC #### [facility] [address] [place] [address] Dr. Epi Goldstein MANUAL DIFF REQ NO Normal [facility] Comment on above: Performed By: #### C BC #### [facility] [address] [address] [address] Epi Goldstein MCH (RBC) [Entitic mass] 30.5 pg Normal 25.9-34.0 [facility] Comment on above: Performed By: #### C BC #### [facility] [address] [place] [address] Dr. Epi Goldstein MCHC (RBC) [Mass/Vol] 33.4 g/dL Normal 29.9-35.2 [facility] Comment on above: Performed By: #### C BC #### [facility] [address] [place] [address] Dr. Epi Goldstein MCV (RBC) [Entitic vol] 91.1 fL Normal 80.0-94.0 [facility] Comment on above: Performed By: #### C BC #### [facility] [address] [place] [address] Dr. Epi Goldstein MONO # 1.7 103/ul Critically high 0.3-0.8 [facility] Comment on above: Performed By: #### C BC #### [facility] [address] [place] [address] Dr. Epi Goldstein Monocytes/100 WBC (Bld) 8.4 % Normal 1.7-12.0 [facility] Comment on above: Performed By: #### C BC #### [facility] [address] [place] [address] Dr. Epi Goldstein NEUT # 16.0 103/ul Critically high 1.4-6.5 [facility] Comment on above: Performed By: #### C BC #### [facility] [address] [place] [address] Dr. Epi Goldstein Neutrophils/100 WBC (Bld) 77.6 % Critically high 43.0-75.0 [facility] Comment on above: Performed By: #### C BC #### [facility] [address] [place] [address] Dr. Epi Goldstein Platelet mean volume (Bld) [Entitic vol] 9.9 fL Normal 9.5-13.5 [facility] Comment on above: Performed By: #### C BC #### [facility] [address] [address] [address] Epi Goldstein PLT 359 103/ul Normal 150-450 [facility] Comment on above: Performed By: #### C BC #### [facility] [id number] Epi Goldstein RBC 3.94 106/ul Critically low 4.70-6.10 [facility] Comment on above: Performed By: #### C BC #### [facility] [id number] Epi Goldstein WBC 20.6 103/ul Critically high 4.0-11.0 [facility] Comment on above: Result Comment: revi ewed slide to confirm Performed By: #### C BC #### [facility] [address] [address] [address] Epi Goldstein CTA CHEST WO W [...] by: SKYE WOODS Date: 2022-11-04 21:02 Normal [facility] CULTURE BLOODon 11-04-2022 Microscopic examination of blood, culture Culture Observations: NO GROWTH AT 5 DAYS. Normal [facility] Comment on above: Performed By: #### L ACT #### [facility] [address] [place] [address] Dr. Epi Goldstein Microscopic examination of blood, culture Culture Observations: NO GROWTH AT 5 DAYS. Normal [facility] Comment on above: Performed By: #### L ACT #### [facility] [address] [address] [address] Epi Goldstein D-DIMERon 11-04-2022 D-DIMER 0.96 mg/L FEU Critically high <=0.59 [facility] Comment on above: Performed By: #### D DIM #### [facility] [address] [place] [address] Dr. Epi Goldstein D-DIMER COMMENTS SEE BELOW Normal [facility] Comment on above: Result Comment: Incr [...] hospitalization. Performed By: #### D DIM #### [facility] [address] [place] [address] Dr. Epi Goldstein LACTATE/LACTIC ACIDon 2022 Lactate [Moles/Vol] 0.8 mmol/L Normal 0.4-2.0 [facility] Comment on above: Performed By: #### L ACT #### [facility] [address] [place] [address] Dr. Epi Goldstein PROF CHEM 8 (BAS METB)on Anion gap [Moles/Vol] 9.2 mmol/L Normal [facility] Comment on above: Performed By: #### B SARA HAMEED #### [facility] [address] [place] [address] Dr. Epi Goldstein Calcium [Mass/Vol] 8.9 mg/dL Normal 8.5-10.1 [facility] Comment on above: Performed By: #### B SARA HAMEED #### [facility] [address] [place] [address] Dr. Epi Goldstein Chloride [Moles/Vol] 101 mmol/L Normal 98-107 [facility] Comment on above: Performed By: #### B SARA HAMEED #### [facility] [address] [place] [address] Dr. Epi Goldstein CO2 [Moles/Vol] 29.1 mmol/L Normal 21.0-32.0 [facility] Comment on above: Performed By: #### B SARA HAMEED #### [facility] [address] [place] [address] Dr. Epi Goldstein Creatinine [Mass/Vol] 0.71 mg/dL Normal 0.70-1.30 [facility] Comment on above: Performed By: #### SARA Hernandez MP #### [facility] [address] [place] [address] Dr. Epi Goldstein EGFR-AF CITIZEN OF [place] >60 Normal >=60 [facility] Comment on above: Performed By: #### SARA Hernandez MP #### [facility] [address] [place] [address] Dr. Epi Goldstein EGFR-NON AF CITIZEN OF THE [place] >60 Normal >=60 [facility] Comment on above: Performed By: #### B SARA HAMEED #### [facility] [address] [place] [address] Dr. Epi Goldstein Glucose [Mass/Vol] 105 mg/dL Normal 74-106 [facility] Comment on above: Performed By: #### B YOSEPH, PATYDM #### [facility] [address] [place] [address] Dr. Epi Goldstein Potassium [Moles/Vol] 3.3 mmol/L Critically low 3.5-5.1 [facility] Comment on above: Performed By: #### B SARA HAMEED #### [facility] [address] [place] [address] Dr. Epi Goldstein Sodium [Moles/Vol] 136 mmol/L Normal 136-145 [facility] Comment on above: Performed By: #### B SARA HAMEED #### [facility] [address] [place] [address] Dr. Epi Goldstein Urea nitrogen [Mass/Vol] 10.0 mg/dL Normal 7.0-18.0 [facility] Comment on above: Performed By: #### B SARA HAMEED #### [facility] [address] [place] [address] Dr. Epi Goldstein Urea nitrogen/Creatinine [Mass ratio] 14.1 mg/mg Normal [facility] Comment on above: Performed By: #### B SARA HAMEED #### [facility] [address] [place] [address] Dr. Epi Goldstein RESPIRATORY PANEL PLUSon Adenovirus Not detected Normal NOT DETECTED [facility] Comment on above: Performed By: #### R SPLUS #### [facility] [address] [place] [address] Dr. Epi Hernandez. Parapertusis Not detected Normal NOT DETECTED [facility] Comment on above: Performed By: #### R SPLUS #### [facility] [address] [place] [address] Dr. Epi Miller Pertussis Not detected Normal NOT DETECTED [facility] Comment on above: Performed By: #### R SPLUS #### [facility] [address] [place] [address] Dr. Epi Goldstein Chlamydia Pneumoniae Not detected Normal NOT DETECTED [facility] Comment on above: Performed By: #### R SPLUS #### [facility] [address] [place] [address] Dr. Epi Goldstein Coronavirus 229E Not detected Normal NOT DETECTED [facility] Comment on above: Performed By: #### R SPLUS #### [facility] [address] [place] [address] Dr. Epi Goldstein Coronavirus HKU1 Not detected Normal NOT DETECTED [facility] Comment on above: Performed By: #### R SPLUS #### [facility] [address] [place] [address] Dr. Epi Goldstein Coronavirus NL63 Not detected Normal NOT DETECTED [facility] Comment on above: Performed By: #### R SPLUS #### [facility] [address] [place] [address] Dr. Epi Goldstein Coronavirus OC43 Not detected Normal NOT DETECTED [facility] Comment on above: Performed By: #### R SPLUS #### [facility] [address] [place] [address] Dr. Epi Goldstein Influenza A H1 Not detected Normal NOT DETECTED [facility] Comment on above: Performed By: #### R SPLUS #### [facility] [address] [place] [address] Dr. Epi Goldstein Influenza A H1 2009 Not detected Normal NOT DETECTED [facility] Comment on above: Performed By: #### R SPLUS #### [facility] [address] [place] [address] Dr. Epi Goldstein Influenza A H3 Not detected Normal NOT DETECTED [facility] Comment on above: Performed By: #### R SPLUS #### [facility] [address] [place] [address] Dr. Epi Goldstein Influenza B Not detected Normal NOT DETECTED [facility] Comment on above: Performed By: #### R SPLUS #### [facility] [address] [place] [address] Dr. Epi Goldstein Metapneumovirus Not detected Normal NOT DETECTED [facility] Comment on above: Performed By: #### R SPLUS #### [facility] [address] [place] [address] Dr. Epi Goldstein Mycoplas. Pneumoniae Not detected Normal NOT DETECTED [facility] Comment on above: Performed By: #### R SPLUS #### [facility] [address] [place] [address] Dr. Epi Goldstein Parainfluenza 1 Not detected Normal NOT DETECTED [facility] Comment on above: Performed By: #### R SPLUS #### [facility] [address] [place] [address] Dr. Epi Goldstein Parainfluenza 2 Not detected Normal NOT DETECTED [facility] Comment on above: Performed By: #### R SPLUS #### [facility] [address] [place] [address] Dr. Epi Goldstein Parainfluenza 3 Not detected Normal NOT DETECTED [facility] Comment on above: Performed By: #### R SPLUS #### [facility] [address] [place] [address] Dr. Epi Goldstein Parainfluenza 4 Not detected Normal NOT DETECTED [facility] Comment on above: Performed By: #### R SPLUS #### [facility] [address] [place] [address] Dr. Epi Goldstein Rhino/Enterovirus Not detected Normal NOT DETECTED [facility] Comment on above: Performed By: #### R SPLUS #### [facility] [address] [place] [address] Dr. Epi Goldstein RP2 Header 1 RESPIRATORY PANEL: VIRUSES Normal [facility] Comment on above: Performed By: #### R SPLUS #### [facility] [address] [place] [address] Dr. Epi Goldstein RP2 Header 2 RESPIRATORY PANEL: BACTERIA Normal [facility] Comment on above: Performed By: #### R SPLUS #### [facility] [address] [place] [address] Dr. Epi Goldstein RSV Not detected Normal NOT DETECTED [facility] Comment on above: Performed By: #### R SPLUS #### [facility] [address] [place] [address] Dr. Epi Goldstein SARS-CoV-2 (COVID-19) RNA ROWENA+probe Ql (Unsp spec) Not detected Normal NOT DETECTED [facility] Comment on above: Performed By: #### R SPLUS #### [facility] [address] [place] [address] Dr. Epi Goldstein Cov[facility]on 08-10 SARS-CoV-2 (COVID-19) RNA ROWENA+probe Ql (Unsp spec) Not detected Normal NOT DETECTED [facility] Comment on above: Result Comment: When diagnostic [...] for this test is supported by the [employer]ant of Health and Human Service's declaration that [...] used). Performed By: #### L ACT #### [facility] [address] [place] [address] Dr. Epi Goldstein INFLUENZA A AND B AGon 08-27 INFLUANEGH SEE BELOW Normal [facility] Comment on above: Result Comment: Nega tive for Flu A protein angiten. Infection due to Flu A cannot be ruled out. Flu A angiten in the sample may be below the detection limit of the test. Performed By: #### L ACT #### [facility] [address] [address] [address] Epi Goldstein [facility] SEE BELOW Normal [facility] Comment on above: Result Comment: Nega tive for Flu B protein antigen. Infection due to Flu B cannot be ruled out. Flu B antigen in the sample may be below the detection limit of the test. Performed By: #### L ACT #### [facility] [address] [address] [address] Epi Goldstein INFLUENZA A AG Negative Normal NEGATIVE SEE COMMENT [facility] Comment on above: Performed By: #### L ACT #### [facility] [address] [place] [address] Dr. Epi Goldstein INFLUENZA B AG Negative Normal NEGATIVE SEE COMMENT [facility] Comment on above: Performed By: #### L ACT #### [facility] [address] [place] [address] Dr. Epi Goldstein XR CHEST 1 Von [...] LORI RODRIGUEZ Date: 2022-08-27 20:19 Normal [facility] COVID/FLU/RSV RT-PCRon 07-07 SARS-CoV-2 (COVID-19) RNA ROWENA+probe Ql (Unsp spec) Positive [employer] Other COVID/FLU/RSV RT-PCR Negative [employer] Other CBC AUTO DIFFon 03-12-2022 BASO # 0.1 103/ul Normal 0.0-0.1 [facility] Comment on above: Performed By: #### C BC #### [facility] [address] [place] [address] Dr. Epi Goldstein Basophils/100 WBC (Bld) 0.9 % Normal 0.2-2.0 [facility] Comment on above: Performed By: #### C BC #### [facility] [address] [address] [address] Epi Goldstein EO # 0.4 103/ul Normal 0.0-0.7 [facility] Comment on above: Performed By: #### C BC #### [facility] [address] [place] [address] Dr. Epi Goldstein Eosinophils/100 WBC (Bld) 4.4 % Normal 0.9-7.0 [facility] Comment on above: Performed By: #### C BC #### [facility] [address] [place] [address] Dr. Epi Goldstein Erythrocyte distribution width (RBC) [Ratio] 12.4 % Normal 11.0-15.0 [facility] Comment on above: Performed By: #### C BC #### [facility] [address] [place] [address] Dr. Epi Goldstein Hematocrit (Bld) [Volume fraction] 35.1 % Critically low 42.0-54.0 [facility] Comment on above: Performed By: #### C BC #### [facility] [address] [place] [address] Dr. Epi Goldstein Hemoglobin (Bld) [Mass/Vol] 11.8 g/dL Critically low 14.0-18.0 [facility] Comment on above: Performed By: #### C BC #### [facility] [address] [place] [address] Dr. Epi Goldstein IG # 0.02 10e3/ul Normal 0.00-0.03 [facility] Comment on above: Performed By: #### C BC #### [facility] [address] [place] [address] Dr. Epi Goldstein IG % 0.2 % Normal 0.0-0.5 [facility] Comment on above: Performed By: #### C BC #### [facility] [address] [place] [address] Dr. Epi Goldstein LYMPH # 2.9 103/ul Normal 1.2-3.8 [facility] Comment on above: Performed By: #### C BC #### [facility] [address] [place] [address] Dr. Epi Goldstein Lymphocytes/100 WBC (Bld) 29.8 % Normal 20.5-60.0 [facility] Comment on above: Performed By: #### C BC #### [facility] [address] [place] [address] Dr. Epi Goldstein MANUAL DIFF REQ NO Normal [facility] Comment on above: Performed By: #### C BC #### [facility] [address] [place] [address] Dr. Epi Goldstein MCH (RBC) [Entitic mass] 30.7 pg Normal 25.9-34.0 [facility] Comment on above: Performed By: #### C BC #### [facility] [address] [place] [address] Dr. Epi Goldstein MCHC (RBC) [Mass/Vol] 33.6 g/dL Normal 29.9-35.2 [facility] Comment on above: Performed By: #### C BC #### [facility] [address] [place] [address] Dr. Epi Goldstein MCV (RBC) [Entitic vol] 91.4 fL Normal 80.0-94.0 [facility] Comment on above: Performed By: #### C BC #### [facility] [address] [place] [address] Dr. Epi Goldstein MONO # 0.8 103/ul Normal 0.3-0.8 [facility] Comment on above: Performed By: #### C BC #### [facility] [address] [place] [address] Dr. Epi Goldstein Monocytes/100 WBC (Bld) 8.1 % Normal 1.7-12.0 [facility] Comment on above: Performed By: #### C BC #### [facility] [address] [place] [address] Dr. Epi Goldstein NEUT # 5.5 103/ul Normal 1.4-6.5 [facility] Comment on above: Performed By: #### C BC #### [facility] [address] [address] [address] Epi Goldstein Neutrophils/100 WBC (Bld) 56.6 % Normal 43.0-75.0 [facility] Comment on above: Performed By: #### C BC #### [facility] [address] [address] [address] Epi Goldstein Platelet mean volume (Bld) [Entitic vol] 10.2 fL Normal 9.5-13.5 [facility] Comment on above: Performed By: #### C BC #### [facility] [address] [address] [address] Epi Goldstein PLT 237 103/ul Normal 150-450 [facility] Comment on above: Performed By: #### C BC #### [facility] [address] [place] [address] Dr. Epi Goldstein RBC 3.84 106/ul Critically low 4.70-6.10 [facility] Comment on above: Performed By: #### C BC #### [facility] [address] [place] [address] Dr. Epi Goldstein WBC 9.7 103/ul Normal 4.0-11.0 [facility] Comment on above: Performed By: #### C BC #### [facility] [address] [place] [address] Dr. Epi Goldstein PROF CHEM 8 (BAS METB)on Anion gap [Moles/Vol] 13.2 mmol/L Normal [facility] Comment on above: Performed By: #### B MP #### [facility] [address] [place] [address] Dr. Epi Goldstein Calcium [Mass/Vol] 8.3 mg/dL Critically low 8.5-10.1 [facility] Comment on above: Performed By: #### B MP #### [facility] [address] [place] [address] Dr. Epi Goldstein Chloride [Moles/Vol] 105 mmol/L Normal 98-107 [facility] Comment on above: Performed By: #### B MP #### [facility] [address] [address] [address] Epi Goldstein CO2 [Moles/Vol] 26.7 mmol/L Normal 21.0-32.0 [facility] Comment on above: Performed By: #### B MP #### [facility] [address] [address] [address] Epi Goldstein Creatinine [Mass/Vol] 0.76 mg/dL Normal 0.70-1.30 [facility] Comment on above: Performed By: #### B MP #### [facility] [address] [address] [address] Epi Goldstein EGFR-AF CITIZEN OF [place] >60 Normal >=60 [facility] Comment on above: Performed By: #### B MP #### [facility] [address] [place] [address] Dr. Epi Goldstein EGFR-NON AF CITIZEN OF THE [place] >60 Normal >=60 [facility] Comment on above: Performed By: #### B MP #### [facility] [address] [address] [address] Epi Golsdtein Glucose [Mass/Vol] 127 mg/dL Critically high 74-106 [facility] Comment on above: Performed By: #### B MP #### [facility] [address] [address] [address] Epi Goldstein Potassium [Moles/Vol] 3.9 mmol/L Normal 3.5-5.1 [facility] Comment on above: Performed By: #### B MP #### [facility] [address] [address] [address] Epi Goldstein Sodium [Moles/Vol] 141 mmol/L Normal 136-145 [facility] Comment on above: Performed By: #### B MP #### [facility] [address] [address] [address] Epi Goldstein Urea nitrogen [Mass/Vol] 14.0 mg/dL Normal 7.0-18.0 [facility] Comment on above: Performed By: #### B MP #### [facility] [address] [address] [address] Epi Goldstein Urea nitrogen/Creatinine [Mass ratio] 18.4 mg/mg Normal [facility] Comment on above: Performed By: #### B #### [facility] [address] [place] [address] Dr. Epi Goldstein US JAMES DOP LEG [...] by: LORI DOWNEY Date: 2022-03-12 13:59 Normal [facility] XR TIB_FIB LT 2Von 2 XR [...] by: MERI SIMPSON Date: 2022-03-12 14:19 Normal [facility] CNOVon 12-14-2018 CNOV Office Visit (PAINLN ) ----- LORI ANTON ([id number]) 1965 M Date Time Provider Department 12/14/18 10:15 AM STEVE WILSON During your visit today, we recorded the following information about you: Pulse Weight 63/minute 104.8 kg Steve Wilson DO 12/14/2018 10:53 AM Signed [facility] Initial Evaluation December 14, 2018 - 9:54 AM This appointment was requested by Bryce CUADRA, for my medical opinion regarding? the evaluation and management of the patient's LORI Anton problems, and my final recommendations will be communicated to the requesting health care provider by way of the shared medical record for internal providers or letter via the [employer] for external providers. SUBJECTIVE: LORI Anton a 53 year old presents to [facility] Pain Management Department, accompanied by self [...] Drug use: Not Currently Types: Opiates Comment: Dax on Suboxone Sexual activity: Yes Partners: Female [...] No history of dysuria, frequency or incontinence CELL OPERATOR: NA MUSCULOSKELETAL: LBP SKIN:Negative for lesions, rash, [...] supervised home exercise program (HEP): No 5. School Leader: No Passive conservative therapy lasting 6 weeks [...] care. Steve Wilson, DO December 14, 2018 Referring Provider: BRYCE LOVE (KHALIF) [[id number]] Allergies As of Date: 12/14/2018 Noted Allergy [...] knee [M25.561, G89.29] Order(s):CONSULT TO PHYSICAL THERAPY [9083] Order #: [id number]: 1 tiZANidine (ZANAFLEX) 4 mg tabletTake 1 [...] STEVE WILSON DO on 12/14/18 [facility] CN Office Visit (LOORRM ) ----- PATRICIALORI Patino ([id number]) 1965 M Date Time Provider Department 12/14/18 9:00 AM BRYCE LOVE) MABLEORRJayesh During your visit today, we recorded the [...] CONSULT TO PHYSICAL THERAPY [9032] Order #: [id number]: 1 CONSULT TO PAIN MGT ANESTHESIA [19991015] Order #: [id number]: 1 Prescriptions as of 12/14/2018 Sig: CARVEDILOL [...] Status:Closed by BRYCE LOVE on 12/14/18 Normal [facility] PROGRESSon 12-14-2018 Protein mass conc HNO ID: [id number] Author: Steve Wilson Service: ? Author Type: Physician Type: Progress Notes Filed: 12/14/2018 10:53 AM Note Text: [facility] Initial Evaluation December 14, 2018 - 9:54 AM This appointment was requested by Bryce CUADRA, for my medical opinion regarding? the evaluation and management of the patient's LORI Anton problems, and my final recommendations will be communicated to the requesting health care provider by way of the shared medical record for internal providers or letter via the [employer] for external providers. SUBJECTIVE: LORI Anton a 53 year old presents to [facility] Pain Management Department, accompanied by self [...] No history of dysuria, frequency or incontinence CELL OPERATOR: NA MUSCULOSKELETAL: LBP SKIN:Negative for lesions, rash, [...] supervised home exercise program (HEP): No 5. School Leader: No Passive conservative therapy lasting 6 weeks [...] care. Steve Wilson, December 14, 2018 Normal [facility] Protein mass conc HNO ID: [id number] Author: Bryce Love (Pa) Service: ? Author Type: Physician Metal Cnc Operator Type: Progress Notes Filed: 12/14/2018 9:30 AM [...] back. PROCEDURE: None. Bryce Love PA-C Normal [facility] Ambreen 10-11-2018 CNOV Office Visit (LOORRM ) ----- LORI ANTON ([id number]) 1965 M Date Time Provider Department 10/11/18 [...] experiencing run in your family? 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 Service: ? Author [...] in your family? 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 Theodore Gonzalez Jr, MD [facility] Protein mass conc HNO ID: [id number] Author: Pallavi Pritchett (Rt) Vinh Glass Service: ? Author Type: Lan Administrator Type: Progress Notes Filed: 10/11/2018 10:07 AM [...] RT Wendy October 11, 2018 10:07 AM [facility] XR KNEE 4V AP/PA/LAT/MERCH B ILon [...] age. 2.1 cm left posterolateral joint body. Plaster Lather: PSCB Transcribe Date/Time: Oct 11 2018 10:14A Dictated by : ACE BUSTAMANTE MD This examination was interpreted and the report reviewed and electronically signed by: ACE BUSTAMANTE MD on Oct 11 2018 10:18AM EST [id number] Normal [facility] Vital Signs Date Time Vital Sign Value Performing Clinician Facility 08-27-2024 08:25-0500 Body height 190.5 cm Shaista Robinsal CONSTRUCTION ADMINISTRATOR Work Phone: [facility] 08-27-2024 08:25-0500 Body mass index (BMI) [Ratio] 27.22 kg/m2 Shaista Robinsal CONSTRUCTION ADMINISTRATOR Work Phone: [facility] 08-27-2024 08:25-0500 Body temperature 98.8 [degF] Shaista Corona CONSTRUCTION ADMINISTRATOR Work Phone: [facility] 08-27-2024 08:25-0500 Body weight 98.79 kg Shaista Corona CONSTRUCTION ADMINISTRATOR Work Phone: [facility] 08-27-2024 08:25-0500 Diastolic blood pressure 80 mm[Hg] Shaista Corona CONSTRUCTION ADMINISTRATOR Work Phone: [facility] 08-27-2024 08:25-0500 Heart rate 65 /min Shaista Corona CONSTRUCTION ADMINISTRATOR Work Phone: [facility] 08-27-2024 08:25-0500 Respiratory rate 18 /min Shaista Robinsal CONSTRUCTION ADMINISTRATOR Work Phone: [facility] 08-27-2024 08:25-0500 SaO2% (BldA) [Mass fraction] 97 % Shaista Lobitoholz CONSTRUCTION ADMINISTRATOR Work Phone: [facility] 08-27-2024 08:25-0500 Systolic blood pressure 130 mm[Hg] Shaista Jeannettehholz CONSTRUCTION ADMINISTRATOR Work Phone: [facility] 07-18-2024 09:09-0500 Body height 190.5 cm Shaista Jeannettehholz CONSTRUCTION ADMINISTRATOR Work Phone: [facility] 07-18-2024 09:09-0500 Body mass index (BMI) [Ratio] 26.85 kg/m2 Shaista Aichholz CONSTRUCTION ADMINISTRATOR Work Phone: [facility] 07-18-2024 09:09-0500 Body temperature 99 [degF] Shaista Jeannettehholz CONSTRUCTION ADMINISTRATOR Work Phone: [facility] 07-18-2024 09:09-0500 Body weight 97.43 kg Shaista Jeannettehholz CONSTRUCTION ADMINISTRATOR Work Phone: [facility] 07-18-2024 09:09-0500 Diastolic blood pressure 82 mm[Hg] Shaista Aichholz CONSTRUCTION ADMINISTRATOR Work Phone: [facility] 07-18-2024 09:09-0500 Heart rate 71 /min Shaista Jeannettehholz CONSTRUCTION ADMINISTRATOR Work Phone: [facility] 07-18-2024 09:09-0500 Respiratory rate 19 /min Shaista Jeannettehholz CONSTRUCTION ADMINISTRATOR Work Phone: [facility] 07-18-2024 09:09-0500 SaO2% (BldA) [Mass fraction] 96 % Shaista Jeannettehholz CONSTRUCTION ADMINISTRATOR Work Phone: [facility] 07-18-2024 09:09-0500 Systolic blood pressure 126 mm[Hg] Shaista Aichholz CONSTRUCTION ADMINISTRATOR Work Phone: [facility] 05-23-2024 08:59-0500 Body height 190.5 cm Shaista Aichholz CONSTRUCTION ADMINISTRATOR Work Phone: [facility] 05-23-2024 08:59-0500 Body mass index (BMI) [Ratio] 26.72 kg/m2 Shaista Gonzalesz CONSTRUCTION ADMINISTRATOR Work Phone: [facility] 05-23-2024 08:59-0500 Body temperature 98.4 [degF] Shaista Gonzalesz CONSTRUCTION ADMINISTRATOR Work Phone: [facility] 05-23-2024 08:59-0500 Body weight 96.98 kg Shaistadeo Robinholz CONSTRUCTION ADMINISTRATOR Work Phone: [facility] 05-23-2024 08:59-0500 Diastolic blood pressure 80 mm[Hg] Shaista Lobitoholz CONSTRUCTION ADMINISTRATOR Work Phone: [facility] 05-23-2024 08:59-0500 Heart rate 66 /min Shaista Janetz CONSTRUCTION ADMINISTRATOR Work Phone: [facility] 05-23-2024 08:59-0500 Respiratory rate 18 /min Shaista Lobitoholz CONSTRUCTION ADMINISTRATOR Work Phone: [facility] 05-23-2024 08:59-0500 SaO2% (BldA) [Mass fraction] 97 % Shaista Lobitoholz CONSTRUCTION ADMINISTRATOR Work Phone: [facility] 05-23-2024 08:59-0500 Systolic blood pressure 118 mm[Hg] Shaista Gonzalesz CONSTRUCTION ADMINISTRATOR Work Phone: [facility] 05-02-2024 16:10-0400 Body height 190.5 cm Shaistadeo Robinholz CONSTRUCTION ADMINISTRATOR Work Phone: [facility] 05-02-2024 16:10-0400 Body mass index (BMI) [Ratio] 27.05 kg/m2 Shaista Lobitoholz CONSTRUCTION ADMINISTRATOR Work Phone: [facility] 05-02-2024 16:10-0400 Body temperature 98.8 [degF] Shaista Robinholz CONSTRUCTION ADMINISTRATOR Work Phone: [facility] 05-02-2024 16:10-0400 Body weight 98.16 kg Shaista Lobitoholz CONSTRUCTION ADMINISTRATOR Work Phone: [facility] 05-02-2024 16:10-0400 Diastolic blood pressure 86 mm[Hg] Shaista Aichholz CONSTRUCTION ADMINISTRATOR Work Phone: [facility] 05-02-2024 16:10-0400 Heart rate 76 /min Shaista Aichholz CONSTRUCTION ADMINISTRATOR Work Phone: [facility] 05-02-2024 16:10-0400 Respiratory rate 18 /min Shaista Aichholz CONSTRUCTION ADMINISTRATOR Work Phone: [facility] 05-02-2024 16:10-0400 SaO2% (BldA) [Mass fraction] 98 % Shaista Aichholz CONSTRUCTION ADMINISTRATOR Work Phone: [facility] 05-02-2024 16:10-0400 Systolic blood pressure 138 mm[Hg] Shaista Aichholz CONSTRUCTION ADMINISTRATOR Work Phone: [facility] 02-29-2024 08:51-0400 Body height 190.5 cm Shaista Aichholz CONSTRUCTION ADMINISTRATOR Work Phone: [facility] 02-29-2024 08:51-0400 Body mass index (BMI) [Ratio] 25.92 kg/m2 Shaista Aichholz CONSTRUCTION ADMINISTRATOR Work Phone: [facility] 02-29-2024 08:51-0400 Body temperature 98.49 [degF] Shaista Aichholz CONSTRUCTION ADMINISTRATOR Work Phone: [facility] 02-29-2024 08:51-0400 Body weight 94.08 kg Shaista Aichholz CONSTRUCTION ADMINISTRATOR Work Phone: [facility] 02-29-2024 08:51-0400 Diastolic blood pressure 82 mm[Hg] Shaista Aichholz CONSTRUCTION ADMINISTRATOR Work Phone: [facility] 02-29-2024 08:51-0400 Heart rate 78 /min Shaista Aichholz CONSTRUCTION ADMINISTRATOR Work Phone: [facility] 02-29-2024 08:51-0400 Respiratory rate 20 /min Shaista Aichholz CONSTRUCTION ADMINISTRATOR Work Phone: [facility] 02-29-2024 08:51-0400 SaO2% (BldA) [Mass fraction] 98 % Shaista Aichholz CONSTRUCTION ADMINISTRATOR Work Phone: [facility] 02-29-2024 08:51-0400 Systolic blood pressure 138 mm[Hg] Shaista Aichholz CONSTRUCTION ADMINISTRATOR Work Phone: [facility] 07-31-2023 19:51-0500 Body height 190.5 cm Shaista Aichholz Work Phone: [facility] 07-31-2023 19:51-0500 Body temperature 100.1 [degF] Shaista Aichholz Work Phone: [facility] 07-31-2023 19:51-0500 Body weight 92.98 kg Shaista Aichholz Work Phone: [facility] 07-31-2023 19:51-0500 Diastolic blood pressure 78 mm[Hg] Shaista Aichholz Work Phone: [facility] 07-31-2023 19:51-0500 Heart rate 96 /min Shaista Aichholz Work Phone: [facility] 07-31-2023 19:51-0500 Respiratory rate 16 /min Shaista Aichholz Work Phone: [facility] 07-31-2023 19:51-0500 SaO2% (BldA) [Mass fraction] 98 % Shaista Aichholz Work Phone: [facility] 07-31-2023 19:51-0500 Systolic blood pressure 133 mm[Hg] Shaista Aichholz Work Phone: [facility] 12-28-2022 08:30-0400 Body height 190.5 cm Ismael Juáreztrinity Other [employer] Other 12-28-2022 08:30-0400 Body mass index (BMI) [Ratio] 25.77 kg/m2 Ismael Huitron Other [employer] Other 12-28-2022 08:30-0400 Body temperature 98.1 [degF] Ismael Huitron Other [employer] Other 12-28-2022 08:30-0400 Body weight 93.53 kg Ismael Huitron Other [employer] Other 12-28-2022 08:30-0400 Diastolic blood pressure 92 mm[Hg] Ismael Huitron Other [employer] Other 12-28-2022 08:30-0400 Respiratory rate 20 /min Ismael Huitron Other [employer] Other 12-28-2022 08:30-0400 SaO2% (BldA) [Mass fraction] 98 % Ismael Huitron Other [employer] Other 12-28-2022 08:30-0400 Systolic blood pressure 152 mm[Hg] Ismael Huitron Other [employer] Other 12-08-2022 21:30-0400 Diastolic blood pressure 87 mm[Hg] Shaista Aichholz Work Phone: [facility] 12-08-2022 21:30-0400 Heart rate 65 /min Shaista Aichholz Work Phone: [facility] 12-08-2022 21:30-0400 Respiratory rate 18 /min Shaista Aichholz Work Phone: [facility] 12-08-2022 21:30-0400 SaO2% (BldA) [Mass fraction] 96 % Shaista Aichholz Work Phone: [facility] 12-08-2022 21:30-0400 Systolic blood pressure 134 mm[Hg] Shaista Aichholz Work Phone: [facility] 12-08-2022 19:30-0400 Body temperature 98.1 [degF] Shaista Aichholz Work Phone: [facility] 12-08-2022 17:36-0400 Body height 190.5 cm Shaista Aichholz Work Phone: [facility] 12-08-2022 17:36-0400 Body weight 91.1 kg Shaista Aichholz Work Phone: [facility] 11-21-2022 12:00-0400 Body temperature 98.1 [degF] Shaista Aichholz Work Phone: [facility] 11-21-2022 12:00-0400 Diastolic blood pressure 73 mm[Hg] Shaista Aichholz Work Phone: [facility] 11-21-2022 12:00-0400 Heart rate 74 /min Shaista Aichholz Work Phone: [facility] 11-21-2022 12:00-0400 Inhaled oxygen flow rate 4 L/min Shaista Aichholz Work Phone: [facility] 11-21-2022 12:00-0400 Respiratory rate 18 /min Shaista Aichholz Work Phone: [facility] 11-21-2022 12:00-0400 SaO2% (BldA) [Mass fraction] 95 % Shaista Aichholz Work Phone: [facility] 11-21-2022 12:00-0400 Systolic blood pressure 135 mm[Hg] Shaista Aichholz Work Phone: [facility] 11-21-2022 03:52-0400 Body weight 97.1 kg Shaista Aichholz Work Phone: [facility] 11-18-2022 09:00-0400 Inhaled oxygen concentration 40 % Shaista Corona Work Phone: [facility] 11-17-2022 13:54-0400 Body height 190.5 cm Shaista Corona Work Phone: [facility] 07-07-2022 17:45-0500 Body height 190.5 cm Supriya Kevin Other [employer] Other 07-07-2022 17:45-0500 Body mass index (BMI) [Ratio] 28.12 kg/m2 Supriya Brown Other [employer] Other 07-07-2022 17:45-0500 Body temperature 100.5 [degF] Supriya Brown Other [employer] Other 07-07-2022 17:45-0500 Body weight 102.06 kg Supriya Brown Other [employer] Other 07-07-2022 17:45-0500 Diastolic blood pressure 84 mm[Hg] Supriya Brown Other [employer] Other 07-07-2022 17:45-0500 Respiratory rate 18 /min Supriya Brown Other [employer] Other 07-07-2022 17:45-0500 SaO2% (BldA) [Mass fraction] 97 % Supriya Brown Other [employer] Other 07-07-2022 17:45-0500 Systolic blood pressure 123 mm[Hg] Supriya Brown Other [facility] [employer] Other Encounters Encounter Date Encounter Type Care Provider Facility Start: 12-12-2024 End: 12-12-2024 ambulatory Lola CORTEZ Facility:[facility] Comment on above: Rash (Primary Dx) Start: 11-27-2024 End: 11-27-2024 ambulatory Lola CORTEZ Facility:[facility] Start: 11-02-2024 End: 11-02-2024 Clinisync Result Encounter Shaista Cj CONSTRUCTION ADMINISTRATOR Work Phone: [facility] External Department Unsolicited Start: 11-02-2024 End: 11-02-2024 Clinisync Result Encounter Shaista Cj CONSTRUCTION ADMINISTRATOR Work Phone: [facility] External Department Unsolicited Start: 08-28-2024 ambulatory Gregg PATTEN Facilit y:[facility] Start: 08-27-2024 End: 08-27-2024 Bamboo flowsheet Shaista Cj CONSTRUCTION ADMINISTRATOR Work Phone: [facility] Start: 08-27-2024 End: 08-27-2024 Bamboo flowsheet Shaista Aichholz CONSTRUCTION ADMINISTRATOR Work Phone: [facility] Start: 08-27-2024 End: 08-27-2024 Office outpatient visit 25 minutes Shaista Cj CONSTRUCTION ADMINISTRATOR Work Phone: [facility] Comment on above: Pulmonary infiltrate on chest x-ray (Primary Dx); Primary hypertension (CMS/HCC); Benign prostatic hyperplasia with weak urinary stream; BMI 25.0-25.9,adult; Anxiety; Tobacco user Start: 08-27-2024 End: 08-27-2024 ambulatory SHAISTA CJ Not Available Start: 08-22-2024 End: 08-22-2024 Clinisync Result Encounter Shaista Janetz CONSTRUCTION ADMINISTRATOR Work Phone: [facility] External Department Unsolicited Start: 08-22-2024 End: 08-22-2024 Clinisync Result Encounter Shaista Janetz CONSTRUCTION ADMINISTRATOR Work Phone: [facility] External Department Unsolicited Start: 08-22-2024 End: 08-22-2024 Refill Shaista Aicsamanthaz CONSTRUCTION ADMINISTRATOR Work Phone: [facility] Comment on above: Pulmonary infiltrate on chest x-ray (Primary Dx) Start: 08-21-2024 End: 08-21-2024 Refill Shaista Aichholz CONSTRUCTION ADMINISTRATOR Work Phone: [facility] Comment on above: Benign prostatic hyp erplasia with weak urinary stream Acute cough (Primary Dx) Start: 08-17-2024 End: 08-18-2024 Refill Shaista Janetz CONSTRUCTION ADMINISTRATOR Work Phone: [facility] Comment on above: Anxiety; Anxiety disorder, unspecified; Muscle spasms of both lower extremities Start: 07-25-2024 End: 07-25-2024 ambulatory [facility] Facility:[facility] Start: 07-24-2024 End: 07-24-2024 Refill Shaista Lobitoholz CONSTRUCTION ADMINISTRATOR Work Phone: [facility] Comment on above: Benign prostatic hyp erplasia with weak urinary stream (Primary Dx) Start: 07-18-2024 End: 07-18-2024 Bamboo flowsheet Shaista Janetz CONSTRUCTION ADMINISTRATOR Work Phone: [facility] Start: 07-18-2024 End: 07-18-2024 Bamboo flowsheet Shaista Jeannettehisiahz CONSTRUCTION ADMINISTRATOR Work Phone: [facility] Start: 07-18-2024 End: 07-18-2024 ambulatory SHAISTA AICHHOLZ Not Available Start: 07-18-2024 End: 07-18-2024 Office outpatient visit 25 minutes Shaista Cj CONSTRUCTION ADMINISTRATOR Work Phone: [facility] Comment on above: Anxiety (Primary Dx) ; Opioid abuse, uncomplicated (CMS/HCC); Spinal stenosis of lumbosacral region; Primary hypertension (CMS/HCC); Bilateral chronic knee pain; Bilateral leg edema; BMI 25.0-25.9,adult; On potassium wasting diuretic therapy; Tobacco user; Essential (primary) hypertension (CMS/HCC); Benign prostatic hyperplasia with weak urinary stream Start: 07-10-2024 End: 07-10-2024 Refill Shaista Janetz CONSTRUCTION ADMINISTRATOR Work Phone: [facility] Comment on above: Bilateral leg edema; On potassium wasting diuretic therapy Start: 05-23-2024 End: 05-23-2024 Clinisync Result Encounter Shaistadeo Corona CONSTRUCTION ADMINISTRATOR Work Phone: [facility] External Department Unsolicited Start: 05-23-2024 End: 05-23-2024 Clinisync Result Encounter Shaista Cj CONSTRUCTION ADMINISTRATOR Work Phone: [facility] External Department Unsolicited Start: 05-23-2024 End: 05-23-2024 Office outpatient visit 25 minutes Shaistadeo Corona CONSTRUCTION ADMINISTRATOR Work Phone: [facility] Comment on above: Bilateral leg edema (Primary Dx); Primary hypertension (CMS/HCC); Tobacco user; On potassium wasting diuretic therapy; Needs flu shot; Osteoarthritis of left knee, unspecified osteoarthritis type Start: 05-23-2024 End: 05-23-2024 ambulatory SHAISTA AICHHOLZ Not Available Start: 05-21-2024 End: 05-22-2024 Refill Shaista Lobitoholz CONSTRUCTION ADMINISTRATOR Work Phone: [facility] Comment on above: Bilateral leg edema Start: 05-02-2024 End: 05-02-2024 Office outpatient visit 25 minutes Shaistadeo Corona CONSTRUCTION ADMINISTRATOR Work Phone: [facility] Comment on above: Bilateral leg edema (Primary Dx); Primary hypertension (CMS/HCC); Benign prostatic hyperplasia with weak urinary stream; Tobacco user Start: 05-02-2024 End: 05-02-2024 ambulatory SHAISTA AICHHOLZ Not Available Start: 05-02-2024 End: 05-02-2024 Bamboo flowsheet Shaista Janetz CONSTRUCTION ADMINISTRATOR Work Phone: [facility] Start: 05-02-2024 End: 05-02-2024 Clinisync Result Encounter Shaista Aichholz CONSTRUCTION ADMINISTRATOR Work Phone: [facility] External Department Unsolicited Start: 05-02-2024 End: 05-02-2024 Clinisync Result Encounter Shaista Corona CONSTRUCTION ADMINISTRATOR Work Phone: [facility] Department Unsolicited Start: 04-24-2024 End: 04-24-2024 ambulatory [facility] Facility:[facility] Start: 02-29-2024 End: 02-29-2024 Bamboo flowsheet Shaista Corona CONSTRUCTION ADMINISTRATOR Work Phone: [facility] Start: 02-29-2024 End: 02-29-2024 Bamboo flowsheet Shaista Corona CONSTRUCTION ADMINISTRATOR Work Phone: [facility] Start: 02-29-2024 End: 02-29-2024 Patient encounter status Shaista Corona CONSTRUCTION ADMINISTRATOR Work Phone: [facility] Start: 02-29-2024 End: 02-29-2024 Periodic preventive med est patient 40-64yrs Shaista Corona CONSTRUCTION ADMINISTRATOR Work Phone: [facility] Comment on above: Wellness examination [...] 02-29-2024 ambulatory SHAISTA AICHHOLZ Not Available Start: 11-29-2023 End: 11-29-2023 ambulatory SHAISTA AICHHOLZ Not Available Start: 10-31-2023 End: 10-31-2023 ambulatory SHAISTA AICHHOLZ Not Available Start: 08-30-2023 End: 08-30-2023 ambulatory SHAISTA AICHHOLZ Not Available Start: 07-31-2023 End: 08-01-2023 Emergency department patient visit Ej Garcia Facility:[facility] Start: 07-31-2023 End: 07-31-2023 Emergency department patient visit Shaista Cj Work Phone: [facility] Work Phone: Start: 12-28-2022 End: 12-28-2022 ambulatory Ismael Huitron Other [employer] Other Start: 12-28-2022 Office outpatient vi sit 25 minutes Kamdevon Huitron [facility] Start: 12-26-2022 End: 12-26-2022 ambulatory Shaista Corona Facility:[facility] Start: 12-26-2022 End: 12-26-2022 ambulatory Shaista Whittaker Jeannettesanjaysal Work Phone: [facility] Work Phone: Start: 12-26-2022 End: 12-26-2022 Patient encounter procedure Shaista Jeannettesanjayisiahlorna Work Phone: [facility] [place] Work Phone: Start: 12-08-2022 End: 12-08-2022 Emergency department patient visit Lisha Silva Facility:[facility] Start: 12-08-2022 End: 12-08-2022 Emergency department patient visit Shaista Cj Work Phone: [facility] Work Phone: Start: 11-05-2022 End: 11-21-2022 Evaluation and management of inpatient Sanjay Holt Facility:[facility] Start: 11-05-2022 End: 11-21-2022 Evaluation and management of inpatient Shaista Cj Work Phone: [facility] [place] [facility] Work Phone: Start: 11-04-2022 End: 11-05-2022 ambulatory TOLL PATROLMAN SHAISTA CORONA Facility:[facility] Start: 11-03-2022 End: 11-03-2022 ambulatory TOLL PATROLMAN SHAISTA JEANNETTEHHOLZ Facility:[facility] Start: 08-27-2022 End: 08-27-2022 ambulatory CATRACHITO ALONZO . Facility:[facility] Start: 07-07-2022 End: 07-07-2022 ambulatory Supriya Brown Other [employer] Other Start: 07-07-2022 Office outpatient ne w 20 minutes Supriya Brown [facility] [place] Start: 03-12-2022 End: 03-12-2022 ambulatory TOLL PATROLMAN SHAISTA CORONA Facility:[facility] Procedures Date Procedure Procedure Detail Performing Clinician Start: 11-02-2024 ALL BASIC METABOLIC PANEL Shaista Corona CONSTRUCTION ADMINISTRATOR Work Phone: Start: 08-22-2024 XR CHEST 2V Shaista torres CONSTRUCTION ADMINISTRATOR Work Phone: Start: 05-23-2024 ALL BASIC METABOLIC PANEL Shaista Corona CONSTRUCTION ADMINISTRATOR Work Phone: Start: 05-02-2024 ALL CBC WITH AUTO DIFF Shaista Corona CONSTRUCTION ADMINISTRATOR Work Phone: Start: 07-31-2023 SARS-CoV-2, Influenz a & RSV (PCR) Shaista Corona Work Phone: Start: 12-26-2022 Plain chest X-ray Shaista Corona Work Phone: Start: 12-08-2022 CT angiography of thorax Shaista Corona Work Phone: Start: 11-20-2022 Plain chest X-ray Shaistadeo Corona Work Phone: Start: 11-18-2022 Plain chest [...] Phone: Start: 11-07-2022 Plain chest X-ray Shaista Cj Work Phone: Start: 11-07-2022 End: 11-07-2022 Plain chest X-ray Shaista Cj Work Phone: Start: 11-06-2022 CT of thorax with contrast Shaista jC Work Phone: Start: 11-05-2022 Plain chest X-ray Shaista Cj Work Phone: Plan of Treatment Date Care Activity Detail Author Start: 03-10-2025 Influenza vaccination Influenza Vaccine (Season Ended) [facility] Start: 10-22-2024 Influenza vaccination Influenza Vaccine (#1) [facility] Comment on above: Postponed from 03/10/2024 (Patient Refus ed) Start: 08-30-2024 Screening for malignant neoplasm of colon Colorectal Cancer Screening [facility] Comment on above: Postponed from 1967 (Patient Refus ed) Start: 08-27-2024 End: 08-27-2024 Patient encounter procedure [facility] Comment on above: Pulmonary infiltrate on chest x-ray ([place] lola Dx); Primary hypertension (CMS/HCC); Benign prostatic hyperplasia with weak urinary stream; BMI 25.0-25.9,adult; Anxiety; Tobacco user Start: 08-21-2024 End: 08-21-2025 XR Chest 2 Views XR chest 2 views Imaging Routine Acute cough Expected: 08/21/2024 (Approximate), Expires: 08/21/2025 [facility] Work Phone: Comment on above: Expected: 08/21/2024 (Approximate), Expi res: 08/21/2025 Start: 07-18-2024 Influenza vaccination Influenza Vaccine (#1) [facility] Comment on above: Postponed from 03/10/2024 (Patient Refus ed) Start: 07-18-2024 End: 07-18-2024 Patient encounter procedure 07/18/2024 9:00 AM EST Office Visit [facility] [address] [place] [id number] Shaista Corona CONSTRUCTION ADMINISTRATOR [address] [place] [phone] [facility] Start: 07-08-2024 End: 07-08-2024 Patient encounter procedure 07/08/2024 8:40 AM EST Office Visit [facility] [address] [place] [address] Shaista Corona, CONSTRUCTION ADMINISTRATOR [address] [place] [phone] [facility] Start: 06-06-2024 End: 05-23-2025 Basic metabolic 1998 panel - Serum or Plasma Basic metabolic panel Lab Routine Bilateral leg edema On potassium wasting diuretic therapy Expected: 06/06/2024 (Approximate), Expires: 05/23/2025 [facility] Work Phone: Comment on above: Expected: 06/06/2024 (Approximate), Expi res: 05/23/2025 Start: 05-23-2024 End: 05-23-2024 Patient encounter procedure 05/23/2024 9:00 AM EST Office Visit [facility] [address] [place] [address] Shaista Corona, CONSTRUCTION ADMINISTRATOR [address] [place] [phone] [facility] Start: 05-02-2024 End: 05-02-2024 Patient encounter procedure 05/02/2024 4:00 PM EDT Office Visit [facility] [address] [place] [address] Shaista Corona, CONSTRUCTION ADMINISTRATOR [address] [place] [phone] Arrived [facility] Comment on above: Arrived Start: 05-02-2024 End: 05-02-2025 Bacteria identified in Urine by Culture Urine culture (clean catch) Microbiology Routine Bilateral leg edema Expected: 05/02/2024 (Approximate), Expires: 05/02/2025 [facility] Comment on above: Expected: 05/02/2024 (Approximate), Expi res: 05/02/2025 Start: 05-02-2024 End: 05-02-2025 CBC W Auto Differential panel - Blood CBC and differential Lab Routine Bilateral leg edema Expected: 05/02/2024 (Approximate), Expires: 05/02/2025 [facility] Comment on above: Expected: 05/02/2024 (Approximate), Expi res: 05/02/2025 Start: 05-02-2024 End: 05-02-2025 Comprehensive metabolic 2000 panel - Serum or Plasma Comprehensive metabolic panel Lab Routine Bilateral leg edema Expected: 05/02/2024 (Approximate), Expires: 05/02/2025 [facility] Comment on above: Expected: 05/02/2024 (Approximate), Expi res: 05/02/2025 Start: 05-02-2024 End: 05-02-2025 Erythrocyte sedimentation rate Sedimentation rate, automated Lab Routine Bilateral leg edema Expected: 05/02/2024 (Approximate), Expires: 05/02/2025 [facility] Work Phone: Comment on above: Expected: 05/02/2024 (Approximate), Expi res: 05/02/2025 Start: 05-02-2024 End: 05-02-2025 Urate [Mass/volume] in Serum or Plasma Uric acid Lab Routine Bilateral leg edema Expected: 05/02/2024 (Approximate), Expires: 05/02/2025 [facility] Comment on above: Expected: 05/02/2024 (Approximate), Expi res: 05/02/2025 Start: 05-02-2024 End: 05-02-2025 Urinalysis complete panel - Urine Urinalysis with reflex microscopic (clean catch) Lab Routine Bilateral leg edema Expected: 05/02/2024 (Approximate), Expires: 05/02/2025 [facility] Comment on above: Expected: 05/02/2024 (Approximate), Expi res: 05/02/2025 Start: 03-10-2024 Influenza vaccination Influenza Vaccine (#1) [facility] Start: 02-29-2024 End: 02-28-2025 XR Hip - left 3 Views XR hip left 2 or 3 views Imaging Routine Chronic left hip pain Expected: 02/29/2024 (Approximate), Expires: 02/28/2025 [facility] Work Phone: Comment on above: Expected: 02/29/2024 (Approximate), Expi res: 02/28/2025 Start: 02-29-2024 End: 02-29-2024 Patient encounter procedure 02/29/2024 10:00 AM EDT Office Visit [facility] [address] [place] [phone] Shaista Corona NP [address] [place] [phone] Opioid abuse, uncomplicated (CMS/HCC) [facility] Comment on above: Opioid abuse, uncomplicated (CMS/HCC) Start: 11-21-2022 [facility] Start: 11-20-2022 Administration of prophylactic treatment [facility] Start: 11-19-2022 Physical therapy procedure [facility] Start: 11-17-2022 Blood culture for bacteria, including anaerobic screen Blood Culture [facility] Start: 11-17-2022 Fungal Culture Result 2 Fungal Culture Result 2 [facility] Start: 11-17-2022 Mycology culture [facility] Start: 11-14-2022 [facility] Start: 11-06-2022 Referral to infectious diseases physician [facility] Start: 11-05-2022 Drainage of Right Pleural Cavity with Drainage Device, Percutaneous Approach Drainage of Right Pleural Cavity with Drainage Device, Percutaneous Approach [facility] Start: 11-05-2022 Insertion of Endotracheal Airway into Trachea, Via Natural or Artificial Opening Insertion of Endotracheal Airway into Trachea, Via Natural or Artificial Opening [facility] Start: 11-05-2022 Insertion of Infusion Device into Superior Vena Cava, Percutaneous Approach Insertion of Infusion Device into Superior Vena Cava, Percutaneous Approach [facility] Start: 11-05-2022 Inspection of Tracheobronchial Tree, Via Natural or Artificial Opening Endoscopic Inspection of Tracheobronchial Tree, Via Natural or Artificial Opening Endoscopic [facility] Start: 11-05-2022 Irrigation of Respiratory Tract using Irrigating Substance, Via Natural or Artificial Opening Endoscopic, Diagnostic Irrigation of Respiratory Tract using Irrigating Substance, Via Natural or Artificial Opening Endoscopic, Diagnostic [facility] Start: 11-05-2022 Respiratory Ventilation, Greater than 96 Consecutive Hours Respiratory Ventilation, Greater than 96 Consecutive Hours [facility] Start: 11-05-2022 Sleep disorder assessment [facility] Start: 11-05-2022 Consultation [facility] Start: 11-05-2022 Hospital admission [facility] Start: 1965 Screening for malignant neoplasm of colon [facility] Fungus identified in Unspecified specimen by Culture [facility] Mycobacterium sp identified in Unspecified specimen by Organism specific culture [facility] Patient Education [facility] Work Phone: Patient referral [facility] Work Phone: XR Chest 2 Views [facility] Payers Date Payer Category Payer Self-pay [id number] 2020 [facility] BCBS [id number] 2020 Unknown BCBS BCBS xxxxxx [id number] 2020-Present [phone] [address] [place] [address] [id number] 1967 Unknown [id number] 2.16.840.1.175947.3.579. 2.593 1967 Unknown [id number] 2.16.840.1.368450.3.579. 2.593 1967 Unknown [id number] 2.16.840.1.107730.3.579. 2.593 1967 Unknown [id number] 2.16.840.1.811191.3.579. 2.593 1967 Unknown [id number] 2.16.840.1.741359.3.579. 2.125 1967 Unknown [id number] 2.16.840.1.533763.3.579. 2.1258 1967 Unknown [id number] 2.16840.1.006904.3.579. 2.125 1967 Unknown [id number] 2.16.840.1.351183.3.579. 2.1259 1967 Unknown [id number] 2.16.840.1.030893.3.579. 2.1258 1967 Unknown [id number] 2.16.840.1.809015.3.579. 2.9 1967 Unknown [id number] 2.16.840.1.790980.3.579. 2.125 1967 Unknown [id number] 2.16.840.1.074988.3.579. 2.1259 1959 Blue Cross Blue Shield [id number] [id number] Unknown [id number] 2.16.840.1.770444.3.579. 2.531 Unknown [id number] 2.16.840.1.617064.3.579. 2.531 Unknown [id number] 2.16.840.1.109594.3.579. 2.531 Unknown [id number] 2.16.840.1.597014.3.579. 2.531 Social History Date Type Detail Facility Start: 08-29-2023 End: 08-27-2024 Sex Assigned At [facility] Start: 11-07-2022 End: 12-08-2022 Tobacco smoking status NHIS Smoker (finding) [facility] Start: 1965 Sex Assigned At Male [facility] Start: 07-31-2023 Tobacco smoking stat [facility] Current some day smoker [facility] Start: 07-10-1999 Tobacco smoking stat [facility] Smokes tobacco daily [facility] Start: 07-10-1999 History of tobacco use Cigarette Smo ker [facility] Start: 02-29-2024 End: 08-27-2024 Alcoholic beverage intake Lifetime non-drinker (finding) [facility] Start: 08-29-2023 End: 08-27-2024 History of Social function [facility] Do you belong to any clubs or organizations such as buddhist groups, unions, fraternal or athletic groups, or [...] 3cups of coffee 2-3 drinks of soda [facility] Start: 1965 Sex assigned at Not on file [facility] Goals Date Patient Goal Desired Activity /State Functional Status Date Assessment Result Facility 11-21-2022 Functional status 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 Baseline [facility] Work Phone: Mental Status Date Assessment Result Facility 11-21-2022 Cognitive function Cognitive Sta tus Patient is Progressing Toward Baseline [facility] Work Phone: Clinical Notes 07-07-2022 to 08-27-2024 Shaista Corona, CONSTRUCTION ADMINISTRATOR - 08/27/2024 8:40 AM ESTLisa Aichholz, CONSTRUCTION ADMINISTRATOR - 08/27/2024 6:22 AM ESTLisa Aichholz, CONSTRUCTION ADMINISTRATOR - 08/27/2024 6:22 AM ESTLisa Aichholz, CONSTRUCTION ADMINISTRATOR - 08/27/2024 6:21 AM ESTPatient Instructions Note Date & Type Note Facility 08-27-2024 History of Presen t illness Narrative Images from the original note were not included. Lori Anton is a 59 y.o. male presents with chief complaint of Anxiety HPI: Since seen last: stopped tamsulosin, trialed cialis. No more issues w ejaculation, however does not feel like he is emptying out bladder, no LE edema Also called last week for URI sxs: started on doxy d/t infiltrates, pharmacy had to order, started on Monday. No fever, no dyspnea, +cough, does feel he is improving SUBJECTIVE: MEDICATIONS: Current Outpatient Medications Medication Instructions albuterol HFA 90 mcg/act inhaler 2 puffs, Inhalation, Every 6 hours PRN amLODIPine (NORVASC) 10 mg, Oral, Daily Buprenorphine HCl-Naloxone HCl (Suboxone) 8-2 MG SL film dissolve 1/3 to 1/2 FILM under the tongue once daily if needed *MUST LAST 28 DAYS carvedilol (COREG) 25 mg, Oral, 2 times daily diclofenac (VOLTAREN) 50 mg, 3 times daily doxycycline (VIBRA-TABS) 100 mg, Oral, 2 times daily, Take with a full glass of water and do not lie down for at least 30 minutes after. FLUoxetine (PROzac) 20 MG capsule TAKE 3 CAPSULES BY MOUTH ONCE DAILY furosemide (LASIX) 20 mg, Oral, Daily PRN, If take this pill, take a potassium lisinopril 40 mg, Oral, Daily pramipexole (MIRAPEX) 0.5 mg, Oral, Nightly PRN tadalafil (CIALIS) 5 mg, Oral, Daily tiZANidine (ZANAFLEX) 8 mg, Oral, Every 12 hours PRN ALLERGIES: Allergies Allergen Reactions Erythromycin Unknown Penicillins Hives REVIEW OF SYMPTOMS: Review of Systems Constitutional: Negative for activity change, appetite change and unexpected weight change. HENT: Negative for ear pain, nosebleeds, sneezing, trouble swallowing and voice change. Eyes: Negative for pain, discharge and visual disturbance. Respiratory: Positive for cough. Negative for apnea, chest tightness and wheezing. Cardiovascular: Negative for leg swelling. Gastrointestinal: Negative for abdominal distention, blood in stool, constipation and diarrhea. Genitourinary: Negative for decreased urine volume, difficulty urinating, dysuria and hematuria. Musculoskeletal: Positive for arthralgias. Skin: Negative for color change. Neurological: Negative [...] coronary arteriosclerosis 08/30/2023 Fatigue 08/30/2023 HTN (hypertension) ([facility]) Left shoulder pain Muscle spasms of both lower extremities 08/30/2023 Opioid abuse (CMS/HCC) 08/30/2023 Shingles Tension pneumothorax 08/30/2023 Tinnitus, bilateral 08/30/2023 Tobacco user 08/30/2023 Past Surgical History: Procedure Laterality Date OTHER SURGICAL HISTORY Fatty Tumor family history includes Heart disease in his mother; Hypertension in his mother; bypass surgeries in his mother. OBJECTIVE: Visit Vitals BP 130/80 (BP Location: Left arm, Patient Position: Sitting, BP Cuff Size: Adult long) Pulse 65 Temp 98.8 F (Temporal) Resp 18 Ht 6' 3 Wt 217 lb 12.8 oz SpO2 97% BMI 27.22 kg/m Smoking Status Every Day BSA 2.29 m Physical Exam Vitals and nursing note reviewed. Constitutional: General: He is not in acute distress. Appearance: Normal appearance. He is not ill-appearing, toxic-appearing or diaphoretic. HENT: Head: Normocephalic. Right Ear: Tympanic membrane, ear canal and external ear normal. Left Ear: Tympanic membrane, ear canal and external ear normal. Nose: Rhinorrhea present. No congestion. Mouth/Throat: Mouth: Mucous membranes are moist. Pharynx: Oropharynx is clear. No oropharyngeal exudate or posterior oropharyngeal erythema. Eyes: Extraocular Movements: Extraocular movements intact. Conjunctiva/sclera: Conjunctivae normal. Cardiovascular: Rate and Rhythm: Normal rate and regular rhythm. Pulses: Normal pulses. Heart sounds: Normal heart sounds. Pulmonary: Effort: Pulmonary effort is normal. Breath sounds: Rhonchi (improves with cough) present. Abdominal: General: Bowel sounds are normal. Palpations: Abdomen is soft. Musculoskeletal: Cervical back: Neck supple. Right lower leg: No edema. Left lower leg: No edema. Lymphadenopathy: Cervical: No cervical adenopathy. Skin: General: [...] List Items Addressed This Visit HTN (hypertension) ([facility]) Please check blood pressure daily and record DASH diet Limit caffeine Take medication as directed Contact office if chest pain, pressure, dizziness, shortness of breath, swelling legs Recommend slow position changes Current meds: amlodipine, carvedilol, lisinopril Tobacco user The patient has been advised of the risks of continued smoking: stroke, [place], all forms of cancer, lung disease, and . Options for quitting smoking include: cold turkey, hypnosis, acupuncture, nicotine replacement meds (gum, lozenges, and patches), Buproprion, and Varenicline. At this time pt is encouraged to evaluate their goals for wanting to quit smoking, and reach out to provider when ready to start this process Anxiety Is currently prescribed prozac, which he does take daily Outside stressors: work, of family member BMI 25.0-25.9,adult Benign prostatic hyperplasia with weak urinary stream At last appt stopped flomax, ordered cialis Will refer to urology Pulmonary infiltrate on chest x-ray - Primary Recent cxr 08/22/24, was prescribed atb Started on 08/24/24, finish, fu if not better Associated Problem(s): Tobacco user The patient has been advised of the risks of continued smoking: stroke, [place], all forms of cancer, lung disease, and . Options for quitting smoking include: cold turkey, hypnosis, acupuncture, nicotine replacement meds (gum, lozenges, and patches), Buproprion, and Varenicline. At this time pt is encouraged to evaluate their goals for wanting to quit smoking, and reach out to provider when ready to start this process Associated Problem(s): Anxiety Is currently prescribed prozac, which he does take daily Outside stressors: work, of family member Associated Problem(s): Benign prostatic hyperplasia with weak urinary stream At last appt stopped flomax, ordered cialis Will refer to urology Associated Problem(s): HTN (hypertension) (CMS/HCC) Please check blood pressure daily and record DASH diet Limit caffeine Take medication as directed Contact office if chest pain, pressure, dizziness, shortness of breath, swelling legs Recommend slow position changes Current meds: amlodipine, carvedilol, lisinopril Associated Problem(s): Pulmonary infiltrate on chest x-ray Recent cxr 08/22/24, was prescribed atb Started on 08/24/24, finish, fu if not better documented in this encounter [facility] 08-27-2024 Instructions Shaista Corona NP - 08/27/2024 8:40 AM EST NEED LABS COMPLETED!!! Will refer to urology documented in this encounter [facility] 07-18-2024 History of Presen t illness Narrative [...] not included. Lori Jayesh Anton is a 59 y.o. male presents [...] coronary arteriosclerosis 08/30/2023 Fatigue 08/30/2023 HTN (hypertension) ([facility]) Left shoulder pain Muscle spasms of both lower extremities 08/30/2023 Opioid abuse ([facility]/H[facility]) 08/30/2023 Shingles Tension pneumothorax 08/30/2023 Tinnitus, bilateral [...] List Items Addressed This Visit HTN (hypertension) ([facility]) Please check blood pressure daily and record DASH diet Limit caffeine Take medication as directed Contact office if chest pain, pressure, dizziness, shortness of breath, swelling legs Recommend slow position changes Current meds: amlodipine, carvedilol, lisinopril Bilateral chronic knee pain Has seen ortho Has script for diclofenac Tobacco user The patient has been advised of the risks of continued smoking: stroke, [place], all forms of cancer, lung disease, and . Options for quitting smoking include: cold turkey, hypnosis, acupuncture, nicotine replacement meds (gum, lozenges, and patches), Buproprion, and Varenicline. At this time pt is encouraged to evaluate their goals for wanting to quit smoking, and reach out to provider when ready to start this process Opioid abuse, uncomplicated ([facility]) Anxiety Is currently prescribed prozac, which he [...] therapy Continue current meds Needs recheck of elreji, order printed Associated Problem(s): Tobacco user The patient has been advised of the risks of continued smoking: stroke, [place], all forms of cancer, lung disease, and [...] switch things up Associated Problem(s): HTN (hypertension) ([facility]) Please check blood pressure daily and record [...] is an option documented in this encounter [facility] 07-18-2024 Instructions Shaista Corona NP - 07/18/2024 9:00 AM EST I will call you about different med for prostate, then come back in about 6 weeks At that point if things are not better with anxiety we will make some adjustments documented in this encounter [facility] 05-23-2024 History of Presen t illness [...] coronary arteriosclerosis 08/30/2023 Fatigue 08/30/2023 HTN (hypertension) ([facility]) Left shoulder pain Muscle spasms of both lower extremities 08/30/2023 Opioid abuse ([facility]) 08/30/2023 Shingles Tension pneumothorax 08/30/2023 Tinnitus, bilateral [...] List Items Addressed This Visit HTN (hypertension) ([facility]) Please check blood pressure daily and record [...] of the risks of continued smoking: stroke, [place], all forms of cancer, lung disease, and [...] of the risks of continued smoking: stroke, KS, all forms of cancer, lung disease, and . Options for quitting smoking include: cold turkey, hypnosis, acupuncture, nicotine replacement meds (gum, lozenges, and patches), Buproprion, and Varenicline. At this time pt is encouraged to evaluate their goals for wanting to quit smoking, and reach out to provider when ready to start this process Associated Problem(s): HTN (hypertension) (CMS/HCC) Please check blood pressure daily and record DASH diet Limit caffeine Take medication as directed Contact office if chest pain, pressure, dizziness, shortness of breath, swelling legs Recommend slow position changes documented in this encounter [facility] 05-23-2024 Instructions Shaista Corona NP - 05/23/2024 9:00 AM EST Continue water pill (lasix/furosemide) Add potassium pill once a day with food Recheck labs in 2 weeks around 06/04/25 Follow up appt in 6 weeks documented in this encounter [facility] 05-02-2024 History of Presen t illness [...] catch) Uric acid documented in this encounter [facility] 12-28-2022 Evaluation note Encounter Date Diagnosis Assessment Notes Dec, Pneumonia of right lower lobe due to infectious organism (ICD-10 - J18.9) Dec, History of pneumothorax (ICD-10 - Z87.09) Dec, Tobacco use disorder (ICD-10 - F17.200) [employer] Other 05-15-2023 Progress note Author Ismael Huitron [facility] November 21, 2022 11:17am Note Date/Time November 21, 2022 11:17 am [facility] [address] [place] [address] Pulmonology Progress Note Signed Patient: Lori Anton MR#: [id number] : 1965 Acct:[id number] Age/Sex: 57 / M Adm Date: 3 Loc: Room: [address] [place] [address] Type: ADM IN Attending Dr: Rubi Ramos [...] By: <Electronically signed by Ismael Huitron MD> 11/21/220 [facility] Work Phone: 1([phone]) 279-856005-15-2023 Progress note Author Sanjay Holt [facility] November 21, 2022 9:14am Note Date/Time November 21, 2022 9:15a m [facility] [address] [place] [address] Infect. Disease Progress Note Signed Patient: Lori Anton MR#: [id number] : 1965 Acct:[id number] Age/Sex: 57 / M Adm Date: 3 Loc: Room: [address] [place] [address] Type: ADM IN Attending Dr: Rubi Ramos [...] 2 Mg Tab.Subl) 2 mg SUBLINGUAL BID [facility] Stop: 05/18/23 09:26 Last Admin: 11/20/22 22:02 Dose: 2 mg Docusate Sodium (Docusate 100 Mg Capsule) 100 mg PO BID PRN PRN Reason: Constipation Stop: 11/18/23 10:23 Enoxaparin Sodium (Enoxaparin 40 Mg/0.4 Ml Syringe) 40 mg SUBCUT DAILY@1000 [facility] Stop: 11/06/23 09:59 Last Admin: 11/20/22 09:03 Dose: 40 mg Fluoxetine HCl (Fluoxetine 20 Mg Capsule) 40 mg PO HS [facility] Stop: 11/20/23 21:59 Last Admin: 11/20/22 22:02 Dose: 40 mg Fluoxetine HCl (Fluoxetine 20 Mg Capsule) 20 mg PO DAILY@0600 [facility] Stop: 11/20/23 05:59 Last Admin: 11/21/22 05:46 Dose: 20 mg Heparin Sodium (Porcine) (Heparin-Lock 500 Unit/5 Ml Syringe) 0 unit IV-PUSH QSHIFT [facility] Stop: 11/14/23 21:59 Last Admin: 11/21/22 05:46 Dose: 500 unit Linezolid (Zyvox) 600 mg in 300 mls @ 300 mls/hr IV Q12H [facility] Last Admin: 11/20/22 22:02 Dose: 300 mls/hr Meropenem (Merrem) 1 gm in 100 mls @ 33.333 mls/hr IV Q8H [facility] Last Admin: 11/21/22 03:48 Dose: 33.3 mls/hr Lidocaine HCl (Lidocaine 1% Pf 5 Ml Inj.Zara) 10 ml INFILTRATN ONCE PRN PRN Reason: Pain Metoprolol Tartrate (Metoprolol Tartrate 12.5 Mg Tablet) 12.5 mg PO BID [facility] Stop: 11/18/23 20:59 Last Admin: 11/20/22 22:02 [...] <Electronically signed by MD Sanjay Holt> 11/21/[address] [facility] Work Phone: 1([phone]) 802-860305-14-2023 Progress note Author Shant Villegas [facility] November 20, 2022 3:35pm Note Date/Time November 20, 2022 3:35p m [facility] [address] [place] [address] Hospitalist Progress Note Signed Patient: Lori Anton MR#: [id number] : 1965 Acct:[id number] Age/Sex: 57 / M Adm Date: 3 Loc: 4P Room: [address] [place] [address] Type: ADM IN Attending Dr: Shant Villegas [...] cough, and right-sided chest pain to the [facility] ED and Transferred for the evaluation and [...] 20 Mg Capsule PO 11/20/23 21:59 HS [facility] Fluoxetine HCl 20 mg 11/20/22 06:00 11/20/22 [...] failure: (4) Parainfluenza: Plan . Documented By: hSant Villegas MD 11/20/221531 Signed By: <Electronically signed by Shant Villegas MD> 11/20/[address] [facility] Work Phone: 1([phone]) 361-559305-14-2023 Progress note Author Ismael Huitron [facility] November 20, 2022 1:40pm Note Date/Time November 20, 2022 1:40p [facility] [address] [place] [address] Pulmonology Progress Note Signed Patient: Lori Anton MR#: [id number] : 1965 Acct:[id number] Age/Sex: 57 / M Adm Date: 3 Loc: Room: [address] [place] [address] Type: ADM IN Attending Dr: Shant Villegas [...] <Electronically signed by Ismael Huitron MD> 11/20/[address] [facility] Work Phone: [phone] Progress note Author Sanjay Holt [facility] November 20, 2022 9:05am Note Date/Time November 20, 2022 9:05a m [facility] [address] [place] [address] Infect. Disease Progress Note Signed Patient: Lori Anton MR#: [id number] : 1965 Acct:[id number] Age/Sex: 57 / M Adm Date: 3 Loc: Room: [address] [place] [address] Type: ADM IN Attending Dr: Shant Villegas [...] 2 Mg Tab.Subl) 2 mg SUBLINGUAL BID [facility] Stop: 05/18/23 09:26 Last Admin: 11/20/22 08:23 Dose: 2 mg Docusate Sodium (Docusate 100 Mg Capsule) 100 mg PO BID PRN PRN Reason: Constipation Stop: 11/18/23 10:23 Enoxaparin Sodium (Enoxaparin 40 Mg/0.4 Ml Syringe) 40 mg SUBCUT DAILY@1000 [facility] Stop: 11/06/23 09:59 Last Admin: 11/19/22 09:06 Dose: 40 mg Fluoxetine HCl (Fluoxetine 20 Mg Capsule) 40 mg PO HS [facility] Stop: 11/20/23 21:59 Fluoxetine HCl (Fluoxetine 20 Mg Capsule) 20 mg PO DAILY@0600 [facility] Stop: 11/20/23 05:59 Last Admin: 11/20/22 06:04 Dose: 20 mg Heparin Sodium (Porcine) (Heparin-Lock 500 Unit/5 Ml Syringe) 0 unit IV-PUSH QSHIFT [facility] Stop: 11/14/23 21:59 Last Admin: 11/20/22 06:04 Dose: 2,000 unit Linezolid (Zyvox) 600 mg in 300 mls @ 300 mls/hr IV Q12H [facility] Last Admin: 11/20/22 00:33 Dose: 300 mls/hr Meropenem (Merrem) 1 gm in 100 mls @ 33.333 mls/hr IV Q8H [facility] Last Admin: 11/20/22 03:00 Dose: 33.33 mls/hr Lidocaine HCl (Lidocaine 1% Pf 5 Ml Inj.Zara) 10 ml INFILTRATN ONCE PRN PRN Reason: Pain Melatonin (Melatonin 5 Mg Tablet) 5 mg PO QHS [facility] Stop: 11/19/23 21:59 Last Admin: 11/19/22 21:12 Dose: 5 mg Metoprolol Tartrate (Metoprolol Tartrate 12.5 Mg Tablet) 12.5 mg PO BID [facility] Stop: 11/18/23 20:59 Last Admin: 11/20/22 08:22 [...] By: <Electronically signed by MD Sanjay Holt> 11/20/[address] [facility] Work Phone: [phone] Progress note Author Shant Villegas [facility] November 19, 2022 1:31pm Note Date/Time November 19, 2022 1:31p m [facility] [address] [place] [address] Hospitalist Progress Note Signed Patient: Lori Anton MR#: [id number] : 1965 Acct:[id number] Age/Sex: 57 / M Adm Date: 3 Loc: Room: [address] [place] [address] Type: ADM IN Attending Dr: Shant Villegas [...] cough, and right-sided chest pain to the [facility] ED and Transferred for the evaluation and [...] signed by Shant Villegas MD> 11/19/[address] [facility] Work Phone: [phone] Progress note Author Ismael Huitron [facility] November 19, 2022 12:32pm Note Date/Time November 19, 2022 12:32 pm [facility] [address] [place] [address] Pulmonology Progress Note Signed Patient: Lori Anton MR#: [id number] : 1965 Acct:[id number] Age/Sex: 57 / M Adm Date: 3 Loc: Room: [address] [place] [address] Type: ADM IN Attending Dr: Shant Villegas [...] signed by Ismael Huitron MD> 11/19/[address] [facility] Work Phone: [phone] Progress note Author Sanjay Holt [facility] November 19, 2022 9:45am Note Date/Time November 19, 2022 9:45a m [facility] [address] [place] [address] Infect. Disease Progress Note Signed Patient: Lori Anton MR#: [id number] : 1965 Acct:[id number] Age/Sex: 57 / M Adm Date: 3 Loc: Room: [address] [place] [address] Type: ADM IN Attending Dr: Shant Villegas [...] 2 Mg Tab.Subl) 2 mg SUBLINGUAL BID [facility] Stop: 05/18/23 09:26 Last Admin: 11/19/22 09:33 Dose: 2 mg Docusate Sodium (Docusate 100 Mg Capsule) 100 mg PO BID PRN PRN Reason: Constipation Stop: 11/18/23 10:23 Enoxaparin Sodium (Enoxaparin 40 Mg/0.4 Ml Syringe) 40 mg SUBCUT DAILY@1000 [facility] Stop: 11/06/23 09:59 Last Admin: 11/19/22 09:06 Dose: 40 mg Fluoxetine HCl (Fluoxetine Soln 20 Mg/5 Ml) 40 mg PO HS [facility] Stop: 11/07/23 21:59 Last Admin: 11/16/22 21:14 Dose: 40 mg Fluoxetine HCl (Fluoxetine Soln 20 Mg/5 Ml) 20 mg PO DAILY@0600 [facility] Stop: 11/08/23 05:59 Last Admin: 11/17/22 05:13 Dose: 20 mg Heparin Sodium (Porcine) (Heparin-Lock 500 Unit/5 Ml Syringe) 0 unit IV-PUSH QSHIFT [facility] Stop: 11/14/23 21:59 Last Admin: 11/19/22 06:42 Dose: 500 unit Hydromorphone HCl (Hydromorphone 1 Mg/Ml Syringe) 1 mg IV-PUSH Q4H PRN PRN Reason: Pain Linezolid (Zyvox) 600 mg in 300 mls @ 300 mls/hr IV Q12H [facility] Last Admin: 11/18/22 22:59 Dose: 300 mls/hr Meropenem (Merrem) 1 gm in 100 mls @ 33.333 mls/hr IV Q8H [facility] Last Admin: 11/19/22 09:07 Dose: 33.33 mls/hr Lidocaine HCl (Lidocaine 1% Pf 5 Ml Inj.Zara) 10 ml INFILTRATN ONCE PRN PRN Reason: Pain Magnesium Hydroxide (Magnesium Hydroxide Susp 30 Ml Udc) 30 ml PO DAILY PRN PRN Reason: Constipation Stop: 11/07/23 07:44 Last Admin: 11/16/22 08:46 Dose: 30 ml Metoprolol Tartrate (Metoprolol Tartrate 12.5 Mg Tablet) 12.5 mg PO BID [facility] Stop: 11/18/23 20:59 Last Admin: 11/19/22 09:07 [...] 10 Ml Syringe) 0 ml IV-PUSH QSHIFT [facility] Stop: 11/05/23 05:59 Last Admin: 11/19/22 06:43 Dose: 10 ml Sodium Chloride (Sodium Chloride 0.9 % 10 Ml Syringe) 10 ml IV-PUSH PRN PRN PRN Reason: Flush Stop: 11/07/23 08:37 Last Admin: 11/15/22 08:11 Dose: 10 ml Sodium Chloride (Sodium Chloride 0.9 % 10 Ml Vial.Pf) 10 ml INJECTION DAILY [facility] Stop: 11/08/23 08:59 Last Admin: 11/19/22 09:06 [...] meropenem. Only new culture result from the [facility] positive was corynebacterium. Patient clinically is better as he sitting up in a chair talking and denies any acute complaints. Did not cough follows in the room. Plan is to get the chest tube out soon. Unless new culture results become available plan to finish 7 days of linezolid and meropenem. Documented By: Sanjay Holt MD 11/19/2240 Signed By: <Electronically signed by MD Sanjay Holt> 11/19/22 0945 [facility] Work Phone: 1(601) 534-297205-12-2023 Progress note Author Shant Villegas [facility] November 18, 2022 12:45pm Note Date/Time November 18, 2022 12:44 pm [facility] [address] [place] [address] Hospitalist Progress Note Signed Patient: Lori Anton MR#: [id number] : 1965 Acct:[id number] Age/Sex: 57 / M Adm Date: 3 Loc: Room: [address] [place] [address] Type: ADM IN Attending Dr: Shant Villegas [...] cough, and right-sided chest pain to the [facility] ED and Transferred for the evaluation and [...] signed by Shant Villegas MD> 11/18/22 1245 [facility] Work Phone: [phone] Progress note Author Ismael Huitron [facility] November 18, 2022 12:09pm Note Date/Time November 18, 2022 11:33 am [facility] [address] [place] [address] Pulmonology Progress Note Signed Patient: Lori Anton MR#: [id number] : 1965 Acct:[id number] Age/Sex: 57 / M Adm Date: 3 Loc: Room: [address] [place] [address] Type: ADM IN Attending Dr: Shant Villegas [...] <Electronically signed by Ismael Huitron MD> 11/18/[address] [facility] Work Phone: [phone] 173-472205-12-2023 Progress note Author Sanjay Holt [facility] November 18, 2022 10:49am Note Date/Time November 18, 2022 10:49 am [facility] [address] [place] [address] Infect. Disease Progress Note Signed Patient: Lori Anton MR#: [id number] : 1965 Acct:[id number] Age/Sex: 57 / M Adm Date: 3 Loc: Room: [address] [place] [address] Type: ADM IN Attending Dr: Shant Villegas [...] ml @ 33.333 mls/hr IV Q8H [facility] Rx#:[id number] fentaNYL 1,000 mcg-*D5W* 1,000 100 / 200 200 / 200 mcg In 100 ml @ 25 MCG/HR 2.5 mls/hr IV .Q24H [facility] Rx#: [id number] propofoL 1,000 mg In 100 ml @ 200 / 400 200 / 200 20 MCG/KG/MIN 12.6 mls/hr IV . Q7H57M [facility] Rx#:[id number] Tube Feeding 982 / 982 Output: Urine [...] Mg/0.4 Ml Syringe) 40 mg SUBCUT DAILY@1000 [facility] Stop: 11/06/23 09:59 Last Admin: 11/18/22 09:57 Dose: 40 mg Fluoxetine HCl (Fluoxetine Soln 20 Mg/5 Ml) 40 mg PO HS [facility] Stop: 11/07/23 21:59 Last Admin: 11/16/22 21:14 Dose: 40 mg Fluoxetine HCl (Fluoxetine Soln 20 Mg/5 Ml) 20 mg PO DAILY@0600 [facility] Stop: 11/08/23 05:59 Last Admin: 11/17/22 05:13 Dose: 20 mg Heparin Sodium (Porcine) (Heparin-Lock 500 Unit/5 Ml Syringe) 0 unit IV-PUSH QSHIFT [facility] Stop: 11/14/23 21:59 Last Admin: 11/18/22 06:37 Dose: 1,000 unit Linezolid (Zyvox) 600 mg in 300 mls @ 300 mls/hr IV Q12H [facility] Last Admin: 11/17/22 22:16 Dose: 300 mls/hr Meropenem (Merrem) 1 gm in 100 mls @ 33.333 mls/hr IV Q8H [facility] Last Admin: 11/18/22 01:54 Dose: 33.33 mls/hr [...] 12.5 Mg Tablet) 12.5 mg OG-TUBE BID [facility] Stop: 11/17/23 11:29 Last Admin: 11/18/22 09:57 [...] 10 Ml Syringe) 0 ml IV-PUSH QSHIFT [facility] Stop: 11/05/23 05:59 Last Admin: 11/18/22 06:38 Dose: 30 ml Sodium Chloride (Sodium Chloride 0.9 % 10 Ml Syringe) 10 ml IV-PUSH PRN PRN PRN Reason: Flush Stop: 11/07/23 08:37 Last Admin: 11/15/22 08:11 Dose: 10 ml Sodium Chloride (Sodium Chloride 0.9 % 10 Ml Vial.Pf) 10 ml INJECTION DAILY [facility] Stop: 11/08/23 08:59 Last Admin: 11/18/22 09:57 [...] signed by MD Sanjay Holt> 11/18/[address] [facility] Work Phone: [phone] Progress note Author Sanjay Holt [facility] November 18, 2022 10:45am Note Date/Time November 17, 2022 9:25a m [facility] [address] [place] [address] Infect. Disease Progress Note Signed Patient: Lori Anton MR#: [id number] : 1965 Acct:[id number] Age/Sex: 57 / M Adm Date: 3 Loc: Room: [address] [place] [address] Type: ADM IN Attending Dr: Shant Villegas [...] Mg/10 Ml Udc) 100 mg OG-TUBE BID [facility] Stop: 11/07/23 08:59 Last Admin: 11/17/22 08:39 Dose: 100 mg Enoxaparin Sodium (Enoxaparin 40 Mg/0.4 Ml Syringe) 40 mg SUBCUT DAILY@1000 [facility] Stop: 11/06/23 09:59 Last Admin: 11/16/22 09:26 Dose: 40 mg Fluoxetine HCl (Fluoxetine Soln 20 Mg/5 Ml) 40 mg PO HS [facility] Stop: 11/07/23 21:59 Last Admin: 11/16/22 21:14 Dose: 40 mg Fluoxetine HCl (Fluoxetine Soln 20 Mg/5 Ml) 20 mg PO DAILY@0600 [facility] Stop: 11/08/23 05:59 Last Admin: 11/17/22 05:13 Dose: 20 mg Heparin Sodium (Porcine) (Heparin-Lock 500 Unit/5 Ml Syringe) 0 unit IV-PUSH QSHIFT [facility] Stop: 11/14/23 21:59 Last Admin: 11/17/22 05:12 Dose: 1,500 unit Fentanyl (Fentanyl 1,000 Mcg/100 Ml D5w) 1,000 mcg in 100 mls @ 2.5 mls/hr IV .Q24H [facility]; Protocol Last Titration: 11/17/22 07:52 Dose: 125 mcg/hr, 12.5 mls/hr Propofol (Diprivan) 1,000 mg in 100 mls @ 12.6 mls/hr IV .Q7H57M [facility]; Protocol Stop: 11/07/23 07:59 Last Titration: 11/17/22 07:52 Dose: 30 mcg/kg/min, 18.9 mls/hr Midazolam HCl (Versed) 100 mg in 100 mls @ 1 mls/hr IV .Q24H [facility]; Protocol Stop: 05/08/23 10:59 Last Admin: 11/16/22 [...] been off antibiotics now for 2 days. [facility] cultures only with corynebacterium. White count does [...] signed by MD Sanjay Holt> 11/18/[address] [facility] Work Phone: [phone] Progress note Author Shant Villegas [facility] November 17, 2022 3:17pm Note Date/Time November 17, 2022 3:17p m [facility] [address] [place] [address] Hospitalist Progress Note Signed Patient: Lori Anton MR#: [id number] : 1965 Acct:[id number] Age/Sex: 57 / M Adm Date: 3 Loc: Room: [address] [place] [address] Type: ADM IN Attending Dr: Shant Villegas [...] cough, and right-sided chest pain to the [facility] ED and Transferred for the evaluation and [...] mg BID [facility] Administration Nicotine 1 each 04/29/23 04:33 Nicotine Patch 21 Mg/24hr 1 Each [...] 1507 Signed By: <Electronically signed by Shant Villeags MD> 11/17/[address] [facility] Work Phone: 1([phone]) [phone] Progress note Author Reginald Arroyo [facility] November 17, 2022 10:25am Note Date/Time November 17, 2022 8:48a m [facility] [address] [place] [address] Pulmonology Progress Note Signed Patient: Lori Anton MR#: [id number] : 1965 Acct:[id number] Age/Sex: 57 / M Adm Date: 3 Loc: Room: [address] [place] [address] Type: ADM IN Attending Dr: Shant Villegas [...] <Electronically signed by MD Reginald Arroyo> 11/17/22 [facility] [facility] Work Phone: 1([phone]) [phone] Progress note Author Shant Villegas [facility] November 16, 2022 3:46pm Note Date/Time November 16, 2022 3:35p m [facility] [address] [place] [address] Hospitalist Progress Note Signed Patient: Lori Anton MR#: [id number] : 1965 Acct:[id number] Age/Sex: 57 / M Adm Date: 3 Loc: Room: [address] [place] [address] Type: ADM IN Attending Dr: Shant Villegas [...] cough, and right-sided chest pain to the [facility] ED and Transferred for the evaluation and treatment of Bacterial pneumonia Bacterial pneumonia/Parainfluenza Infection Since patient remains intubated and had a spike of fever this morning. CTA chest obtained earlier today showed consolidative changes involving lower lobes and cavitary component in the right middle lobe. Patient being followed by pulmonary service and infectious disease and will defer further management to [facility] pulmonary service. Currently is off antibiotics. He [...] Ml PO 11/08/23 05:59 20 mg DAILY@0600 [facility] Administration Heparin Sodium (Porcine) 0 unit 11/14/22 [...] Tablet PO 11/06/23 08:59 20 mg DAILY@0600 [facility] Administration Magnesium Hydroxide 30 ml 11/07/22 07:45 [...] signed by Shant Villegas MD> 11/16/[address] [facility] Work Phone: [phone]) [phone] Progress note Author Reginald Arroyo [facility] November 16, 2022 11:03am Note Date/Time November 16, 2022 8:20a m [facility] [address] [place] [address] Pulmonology Progress Note Signed Patient: Lori Anton MR#: [id number] : 1965 Acct:[id number] Age/Sex: 57 / M Adm Date: 3 Loc: Room: [address] [place] [address] Type: ADM IN Attending Dr: Shant Villegas [...] <Electronically signed by MD Reginald Arroyo> 11/16/22 [facility] [facility] Work Phone: [phone]) [phone] Progress note Author Sanjay Holt [facility] November 16, 2022 9:24am Note Date/Time November 16, 2022 9:05a m [facility] [address] [place] [address] Infect. Disease Progress Note Signed Patient: Lori Anton MR#: [id number] : 1965 Acct:[id number] Age/Sex: 57 / M Adm Date: 3 Loc: Room: [address] [place] [address] Type: ADM IN Attending Dr: Shant Villegas [...] Puff/18 Gm Inhaler) 6 puff VENT Q6HR [facility] Stop: 11/07/23 11:59 Last Admin: 11/16/22 05:08 Dose: 6 puff Amlodipine Besylate (Amlodipine 10 Mg Tablet) 10 mg PO DAILY@0600 [facility] Stop: 11/05/23 08:59 Last Admin: 11/08/22 07:00 Dose: 10 mg Buprenorphine HCl (Buprenorphine Hcl 2 Mg Tab.Subl) 2 mg SUBLINGUAL BID@0600,1800 [facility] Stop: 05/06/23 05:59 Last Admin: 11/07/22 06:38 Dose: 2 mg Carvedilol (Carvedilol 12.5 Mg Tablet) 12.5 mg PO BID@0600,1800 [facility] Stop: 11/06/23 20:59 Last Admin: 11/08/22 07:00 Dose: 12.5 mg Chlorhexidine Gluconate (Chlorhexidine Gluconate 0.12% 15 Ml Udc) 15 ml MUCOUS MEM BID [facility] Stop: 11/07/23 09:09 Last Admin: 11/16/22 08:46 Dose: 15 ml Docusate Sodium (Docusate Liquid 100 Mg/10 Ml Udc) 100 mg OG-TUBE BID [facility] Stop: 11/07/23 08:59 Last Admin: 11/16/22 08:46 Dose: 100 mg Enoxaparin Sodium (Enoxaparin 40 Mg/0.4 Ml Syringe) 40 mg SUBCUT DAILY@1000 [facility] Stop: 11/06/23 09:59 Last Admin: 11/15/22 10:16 Dose: 40 mg Fluoxetine HCl (Fluoxetine Soln 20 Mg/5 Ml) 40 mg PO HS [facility] Stop: 11/07/23 21:59 Last Admin: 11/15/22 22:31 Dose: 40 mg Fluoxetine HCl (Fluoxetine Soln 20 Mg/5 Ml) 20 mg PO DAILY@0600 [facility] Stop: 11/08/23 05:59 Last Admin: 11/16/22 05:39 Dose: 20 mg Heparin Sodium (Porcine) (Heparin-Lock 500 Unit/5 Ml Syringe) 0 unit IV-PUSH QSHIFT [facility] Stop: 11/14/23 21:59 Last Admin: 11/16/22 05:47 Dose: 1,000 unit Fentanyl (Fentanyl 1,000 Mcg/100 Ml D5w) 1,000 mcg in 100 mls @ 2.5 mls/hr IV .Q24H [facility]; Protocol Last Admin: 11/15/22 19:06 Dose: 200 mcg/hr, 20 mls/hr Propofol (Diprivan) 1,000 mg in 100 mls @ 12.6 mls/hr IV .Q7H57M [facility]; Protocol Stop: 11/07/23 07:59 Last Admin: 11/16/22 08:47 Dose: 20 mcg/kg/min, 12.6 mls/hr Midazolam HCl (Versed) 100 mg in 100 mls @ 1 mls/hr IV .Q24H [facility]; Protocol Stop: 05/08/23 10:59 Last Titration: 11/16/22 08:48 Dose: 5 mg/hr, 5 mls/hr Sodium Chloride (0.45% Sodium Chloride 1,000 Ml) 1,000 mls @ 150 mls/hr IV .Q6H40M [facility] Stop: 11/16/22 15:39 Lidocaine HCl (Lidocaine 1% Pf 5 Ml Inj.Zara) 10 ml INFILTRATN ONCE PRN PRN Reason: Pain Lisinopril (Lisinopril 20 Mg Tablet) 20 mg PO DAILY@0600 [facility] Stop: 11/06/23 08:59 Last Admin: 11/08/22 07:00 [...] 40 Mg Vial) 40 mg IV-PUSH DAILY [facility] Stop: 11/08/23 08:59 Last Admin: 11/16/22 08:46 [...] 10 Ml Syringe) 0 ml IV-PUSH QSHIFT [facility] Stop: 11/05/23 05:59 Last Admin: 11/16/22 05:47 Dose: 20 ml Sodium Chloride (Sodium Chloride 0.9 % 10 Ml Syringe) 10 ml IV-PUSH PRN PRN PRN Reason: Flush Stop: 11/07/23 08:37 Last Admin: 11/15/22 08:11 Dose: 10 ml Sodium Chloride (Sodium Chloride 0.9 % 10 Ml Vial.Pf) 10 ml INJECTION DAILY [facility] Stop: 11/08/23 08:59 Last Admin: 11/16/22 08:46 [...] elevated. On admission respiratory PCR panel at [facility] without targeted pathogen but parainfluenza 3 virus targeted here. Legionella urine antigen negative, Legionella antibodies negative. Urine strep antigen negative. HIV negative. At this time he is off antibiotics and has been for only a day. Documented By: Sanjay Holt MD 11/16/22 0858 Signed By: <Electronically signed by MD Sanjay Holt> 11/16/[address] [facility] Work Phone: [phone] Progress note Author Shant Villegas [facility] November 15, 2022 2:30pm Note Date/Time November 15, 2022 2:30pm [facility] [address] [place] [address] Hospitalist Progress Note Signed Patient: Lori Anton MR#: [id number] : 1965 Acct:[id number] Age/Sex: 57 / M Adm Date: 3 Loc: Room: [address] [place] [address] Type: ADM IN Attending Dr: Shant Villegas [...] cough, and right-sided chest pain to the [facility] ED and Transferred for the evaluation and treatment of Bacterial pneumonia Bacterial pneumonia/Parainfluenza Infection Per chest CTA report done at [facility], there is evidence of 2.6 cm right [...] . Documented By: Shant Villegas MD 11/15/22 0848 Signed By: <Electronically signed by Shant Villegas MD> 11/15/22 8984 [facility] Work Phone: [phone]) [phone] Progress note Author Reginald Arroyo [facility] November 15, 2022 12:14pm Note Date/Time November 15, 2022 8:22am [facility] [address] [place] [address] Pulmonology Progress Note Signed Patient: Lori Anton MR#: [id number] : 1965 Acct:[id number] Age/Sex: 57 / M Adm Date: 3 Loc: Room: [address] [place] [address] Type: ADM IN Attending Dr: Shant Villegas [...] signed by MD Reginald Arroyo> 11/15/[address] [facility] Work Phone: [phone] 164-923105-09-2023 Progress note Author Sanjay Holt [facility] November 15, 2022 9:37am Note Date/Time November 15, 2022 9:37am [facility] [address] [place] [address] Infect. Disease Progress Note Signed Patient: Lori Anton MR#: [id number] : 1965 Acct:[id number] Age/Sex: 57 / M Adm Date: 3 Loc: Room: [address] [place] [address] Type: ADM IN Attending Dr: Shant Villegas [...] Puff/18 Gm Inhaler) 6 puff VENT Q6HR [facility] Stop: 11/07/23 11:59 Last Admin: 11/15/22 05:24 Dose: 6 puff Albuterol/Ipratropium (Ipratropium/Albuterol 0.5-3 Mg 3 Ml Ampul.Neb) 3 ml INHALATION QID.RESP [facility] Stop: 11/05/23 07:59 Last Admin: 11/07/22 09:05 Dose: Not Given Amlodipine Besylate (Amlodipine 10 Mg Tablet) 10 mg PO DAILY@0600 [facility] Stop: 11/05/23 08:59 Last Admin: 11/08/22 07:00 Dose: 10 mg Budesonide (Budesonide 0.5 Mg/2 Ml Ampul.Neb) 0.5 mg INHALATION BID [facility] Stop: 11/05/23 11:39 Last Admin: 11/06/22 20:43 Dose: 0.5 mg Buprenorphine HCl (Buprenorphine Hcl 2 Mg Tab.Subl) 2 mg SUBLINGUAL BID@0600,1800 [facility] Stop: 05/06/23 05:59 Last Admin: 11/07/22 06:38 Dose: 2 mg Carvedilol (Carvedilol 12.5 Mg Tablet) 12.5 mg PO BID@0600,1800 [facility] Stop: 11/06/23 20:59 Last Admin: 11/08/22 07:00 Dose: 12.5 mg Chlorhexidine Gluconate (Chlorhexidine Gluconate 0.12% 15 Ml Udc) 15 ml MUCOUS MEM BID [facility] Stop: 11/07/23 09:09 Last Admin: 11/15/22 08:10 Dose: 15 ml Docusate Sodium (Docusate Liquid 100 Mg/10 Ml Udc) 100 mg OG-TUBE BID [facility] Stop: 11/07/23 08:59 Last Admin: 11/15/22 08:10 Dose: 100 mg Enoxaparin Sodium (Enoxaparin 40 Mg/0.4 Ml Syringe) 40 mg SUBCUT DAILY@1000 [facility] Stop: 11/06/23 09:59 Last Admin: 11/14/22 15:06 Dose: 40 mg Fluoxetine HCl (Fluoxetine Soln 20 Mg/5 Ml) 40 mg PO HS [facility] Stop: 11/07/23 21:59 Last Admin: 11/14/22 21:47 Dose: 40 mg Fluoxetine HCl (Fluoxetine Soln 20 Mg/5 Ml) 20 mg PO DAILY@0600 [facility] Stop: 11/08/23 05:59 Last Admin: 11/15/22 05:47 Dose: 20 mg Guaifenesin (Guaifenesin 600 Mg Tab.Er.12h) 1,200 mg PO BID [facility] Stop: 11/06/23 12:54 Last Admin: 11/06/22 20:51 Dose: 1,200 mg Heparin Sodium (Porcine) (Heparin-Lock 500 Unit/5 Ml Syringe) 0 unit IV-PUSH QSHIFT [facility] Stop: 11/14/23 21:59 Last Admin: 11/15/22 05:46 Dose: 1,000 unit Levofloxacin (Levaquin) 750 mg in 150 mls @ 100 mls/hr IV Q24H [facility] Last Admin: 11/14/22 21:45 Dose: 100 mls/hr Clindamycin Phosphate (Cleocin) 600 mg in 50 mls @ 100 mls/hr IV Q8H [facility] Last Admin: 11/15/22 02:46 Dose: 100 mls/hr Fentanyl (Fentanyl 1,000 Mcg/100 Ml D5w) 1,000 mcg in 100 mls @ 2.5 mls/hr IV .Q24H [facility]; Protocol Last Admin: 11/15/22 07:59 Dose: 200 mcg/hr, 20 mls/hr Propofol (Diprivan) 1,000 mg in 100 mls @ 12.6 mls/hr IV .Q7H57M [facility]; Protocol Stop: 11/07/23 07:59 Last Admin: 11/15/22 06:38 Dose: 35 mcg/kg/min, 22.05 mls/hr Midazolam HCl (Versed) 100 mg in 100 mls @ 1 mls/hr IV .Q24H [facility]; Protocol Stop: 05/08/23 10:59 Last Admin: 11/14/22 21:46 Dose: Not Given Lidocaine HCl (Lidocaine 1% Pf 5 Ml Inj.Zara) 10 ml INFILTRATN ONCE PRN PRN Reason: Pain Lisinopril (Lisinopril 20 Mg Tablet) 20 mg PO DAILY@0600 [facility] Stop: 11/06/23 08:59 Last Admin: 11/08/22 07:00 [...] 40 Mg Vial) 40 mg IV-PUSH DAILY [facility] Stop: 11/08/23 08:59 Last Admin: 11/15/22 08:10 [...] days. On admission respiratory PCR panel at [facility] without targeted pathogen but parainfluenza 3 virus [...] By: <Electronically signed by MD Sanjay Holt> 11/15/2279 [facility] Work Phone: [phone] [facility]2023 Progress note Author Shant Villegas [facility] November 14, 2022 12:52pm Note Date/Time November 14, 2022 12:52p m [facility] [address] [place], [place] [id number] Hospitalist Progress Note Signed Patient: Lori Anton MR#: [id number] : 1965 Acct:[id number] Age/Sex: 57 / M Adm Date: 3 Loc: Room: [address] [place] [address] Type: ADM IN Attending Dr: Shant Villegas MD Copies to: ~ Date of Service: 11/14/2022 Subjective Subjective Narrative: On examination patient remains intubated and sedated. Currently PEEP of 10 [id number]% FiO2. Plan for bronchoscopy later today by pulmonary service. He is also being followed by ID. Currently on Versed, fentanyl and propofol for sedation. No growth on blood cultures so far. With initial sputum culture growing Candidaonly. Assessment And Plan 57M with PMH of HTN, DJD, Tobacco abuse, Depression who p/w ever, cough, and right-sided chest pain to the [facility] ED and Transferred for the evaluation and treatment of Bacterial pneumonia Bacterial pneumonia/Parainfluenza Infection Per chest CTA report done at [facility], there is evidence of 2.6 cm right [...] Albuterol Hfa 200 Puff/18 Gm Inhaler VENT 04/30/24 11:59 6 puff Q6HR [facility] Administration Albuterol/Ipratropium [...] Syringe SUBCUT 11/06/23 09:59 40 mg DAILY@1000 [facility] Administration Fluoxetine HCl 40 mg 11/07/22 22:00 [...] Insuln.Pen SUBCUT 11/08/23 11:59 Not Given Q6HR [facility] Protocol Lidocaine HCl 10 ml 11/09/22 13:55 [...] signed by Shant Villegas MD> 11/14/22 1252 [facility] Work Phone: [phone] Progress note Author Reginald Arroyo [facility] November 14, 2022 12:46pm Note Date/Time November 14, 2022 8:51am [facility] [address] [place] [address] Pulmonology Progress Note Signed Patient: Lori Anton MR#: [id number] : 1965 Acct:[id number] Age/Sex: 57 / M Adm Date: 3 Loc: Room: [address] [place] [address] Type: ADM IN Attending Dr: Shant Villegas [...] cultures. Documented By: Reginald Arroyo MD [id number] Signed By: <Electronically signed by MD Reginald Arroyo> 11/14/[address] [facility] Work Phone: [phone] Progress note Author Sanjay Holt [facility] November 14, 2022 8:59am Note Date/Time November 14, 2022 8:59am [facility] [address] [place] [address] Infect. Disease Progress Note Signed Patient: Lori Anton MR#: [id number] : 1965 Acct:[id number] Age/Sex: 57 / M Adm Date: 3 Loc: Room: [address] [place] [address] Type: ADM IN Attending Dr: Rubi Ramos [...] Puff/18 Gm Inhaler) 6 puff VENT Q6HR [facility] Stop: 11/07/23 11:59 Last Admin: 11/14/22 05:19 Dose: 6 puff Albuterol/Ipratropium (Ipratropium/Albuterol 0.5-3 Mg 3 Ml Ampul.Neb) 3 ml INHALATION QID.RESP [facility] Stop: 11/05/23 07:59 Last Admin: 11/07/22 09:05 Dose: Not Given Amlodipine Besylate (Amlodipine 10 Mg Tablet) 10 mg PO DAILY@0600 [facility] Stop: 11/05/23 08:59 Last Admin: 11/08/22 07:00 Dose: 10 mg Budesonide (Budesonide 0.5 Mg/2 Ml Ampul.Neb) 0.5 mg INHALATION BID [facility] Stop: 11/05/23 11:39 Last Admin: 11/06/22 20:43 Dose: 0.5 mg Bumetanide (Bumetanide 1 Mg/4 Ml Vial) 1 mg IV-PUSH BID@0800,1600 [facility] Stop: 11/14/22 16:01 Last Admin: 11/13/22 16:15 Dose: 1 mg Buprenorphine HCl (Buprenorphine Hcl 2 Mg Tab.Subl) 2 mg SUBLINGUAL BID@0600,1800 [facility] Stop: 05/06/23 05:59 Last Admin: 11/07/22 06:38 Dose: 2 mg Carvedilol (Carvedilol 12.5 Mg Tablet) 12.5 mg PO BID@0600,1800 [facility] Stop: 11/06/23 20:59 Last Admin: 11/08/22 07:00 Dose: 12.5 mg Chlorhexidine Gluconate (Chlorhexidine Gluconate 0.12% 15 Ml Udc) 15 ml MUCOUS MEM BID [facility] Stop: 11/07/23 09:09 Last Admin: 11/13/22 22:31 Dose: 15 ml Docusate Sodium (Docusate Liquid 100 Mg/10 Ml Udc) 100 mg OG-TUBE BID [facility] Stop: 11/07/23 08:59 Last Admin: 11/13/22 22:31 Dose: 100 mg Enoxaparin Sodium (Enoxaparin 40 Mg/0.4 Ml Syringe) 40 mg SUBCUT DAILY@1000 [facility] Stop: 11/06/23 09:59 Last Admin: 11/13/22 09:16 Dose: 40 mg Fluoxetine HCl (Fluoxetine Soln 20 Mg/5 Ml) 40 mg PO HS [facility] Stop: 11/07/23 21:59 Last Admin: 11/13/22 22:32 Dose: 40 mg Fluoxetine HCl (Fluoxetine Soln 20 Mg/5 Ml) 20 mg PO DAILY@0600 [facility] Stop: 11/08/23 05:59 Last Admin: 11/14/22 06:31 Dose: 20 mg Guaifenesin (Guaifenesin 600 Mg Tab.Er.12h) 1,200 mg PO BID [facility] Stop: 11/06/23 12:54 Last Admin: 11/06/22 20:51 Dose: 1,200 mg Levofloxacin (Levaquin) 750 mg in 150 mls @ 100 mls/hr IV Q24H [facility] Last Admin: 11/13/22 22:31 Dose: 100 mls/hr Clindamycin Phosphate (Cleocin) 600 mg in 50 mls @ 100 mls/hr IV Q8H [facility] Last Admin: 11/14/22 01:20 Dose: 100 mls/hr Fentanyl (Fentanyl 1,000 Mcg/100 Ml D5w) 1,000 mcg in 100 mls @ 2.5 mls/hr IV .Q24H [facility]; Protocol Last Admin: 11/14/22 04:30 Dose: 200 mcg/hr, 20 mls/hr Propofol (Diprivan) 1,000 mg in 100 mls @ 12.6 mls/hr IV .Q7H57M [facility]; Protocol Stop: 11/07/23 07:59 Last Admin: 11/14/22 06:30 Dose: 50 mcg/kg/min, 31.5 mls/hr Midazolam HCl (Versed) 100 mg in 100 mls @ 1 mls/hr IV .Q24H [facility]; Protocol Stop: 05/08/23 10:59 Last Admin: 11/13/22 22:31 Dose: Not Given Insulin Aspart (Insulin Aspart 300 Units/3 Ml Insuln.Pen) 0 units SUBCUT Q6HR [facility]; Protocol Stop: 11/08/23 11:59 Last Admin: 11/14/22 06:31 Dose: Not Given Lidocaine HCl (Lidocaine 1% Pf 5 Ml Inj.Zara) 10 ml INFILTRATN ONCE PRN PRN Reason: Pain Lisinopril (Lisinopril 20 Mg Tablet) 20 mg PO DAILY@0600 [facility] Stop: 11/06/23 08:59 Last Admin: 11/08/22 07:00 [...] 40 Mg Vial) 40 mg IV-PUSH DAILY [facility] Stop: 11/08/23 08:59 Last Admin: 11/13/22 09:16 Dose: 40 mg Potassium Chloride (Potassium Chloride Er 20 Meq Tab.Er.Prt) 40 meq PO DAILY PRN PRN Reason: Hypokalemia Stop: 11/05/23 06:40 Last Admin: 11/05/22 08:43 Dose: 40 meq Sennosides (Sennosides Syrup 8.8 Mg/5 Ml Udc) 8.8 mg PO BID [facility] Stop: 11/07/23 08:59 Last Admin: 11/13/22 22:31 [...] 10 Ml Vial.Pf) 10 ml INJECTION DAILY [facility] Stop: 11/08/23 08:59 Last Admin: 11/13/22 09:16 [...] 3days. On admission respiratory PCR panel at [facility] without targeted pathogen but parainfluenza 3 virus [...] signed by MD Sanjay Holt> 11/14/[address] [facility] Work Phone: [phone] Progress note Author Rubi Ramos [facility] November 13, 2022 5:32pm Note Date/Time November 13, 2022 2:04pm [facility] [address] [place] [address] Hospitalist Progress Note Signed Patient: Lori Anton MR#: [id number] : 1965 Acct:[id number] Age/Sex: 57 / M Adm Date: 3 Loc: Room: [address] [place] [address] Type: ADM IN Attending Dr: Rubi Ramos MD Copies to: ~ Date of Service: 11/13/2022 Subjective Subjective Narrative: Assessment And Plan 57M with PMH of HTN, DJD, Tobacco abuse, Depression who p/w ever, cough, and right-sided chest pain to the [facility] ED and Transferred for the evaluation and treatment of Bacterial pneumonia Bacterial pneumonia/Parainfluenza Infection leukocytosis is better , no fever today Per chest CTA report done at [facility], there is evidence of 2.6 cm right [...] 11/13/22 12:00 11/13/22 13:00 11/13/22 13:00 11/13/22 13:11/13/22 13:11/13/22 13:11/07/22 00:00 FiO2 95 11/13/22 13:00 Narrative: GENERAL: [...] Mg/4 Ml Vial IV-PUSH 11/14/22 16:01 BID@0800,1600 [facility] Buprenorphine HCl 2 mg 11/07/22 06:00 11/07/22 [...] Insuln.Pen SUBCUT 11/08/23 11:59 Not Given Q6HR [facility] Protocol Lidocaine HCl 10 ml 11/09/22 13:55 [...] <Electronically signed by Rubi Ramos MD> 11/13/22 7940 [facility] Work Phone: [phone] Progress note Author Reginald Arroyo [facility] November 13, 2022 10:56am Note Date/Time November 13, 2022 9:03am [facility] [address] [place] [address] Pulmonology Progress Note Signed Patient: Lori Anton MR#: [id number] : 1965 Acct:[id number] Age/Sex: 57 / M Adm Date: 3 Loc: Room: [address] [place] [address] Type: ADM IN Attending Dr: Rubi Ramos [...] <Electronically signed by MD Reginald Arroyo> 11/13/[address] [facility] Work Phone: [phone]) 286-675305-06-2023 Progress note Author Rubi Ramos [facility] November 12, 2022 6:19pm Note Date/Time November 12, 2022 4:48pm [facility] [address] [place] [address] Hospitalist Progress Note Signed Patient: Lori Anton MR#: [id number] : 1965 Acct:[id number] Age/Sex: 57 / M Adm Date: 3 Loc: Room: [address] [place] [address] Type: ADM IN Attending Dr: Rubi Ramos MD Copies to: ~ Date of Service: 11/12/2022 Subjective Subjective Narrative: Assessment And Plan 57M with PMH of HTN, DJD, Tobacco abuse, Depression who p/w ever, cough, and right-sided chest pain to the [facility] ED and Transferred for the evaluation and treatment of Bacterial pneumonia Bacterial pneumonia/Parainfluenza Infection still have leukocytosis (he is on steroids) , no fever today Per chest CTA report done at [facility], there is evidence of 2.6 cm right [...] consulted, recommendation appreciated Broad spectrum Abx Fiver 5/ Mild fever spike this morning UA was [...] Insuln.Pen SUBCUT 11/08/23 11:59 Not Given Q6HR [facility] Protocol Lidocaine HCl 10 ml 11/09/22 13:55 Lidocaine 1% Pf 5 Ml Inj.Zara INFILTRATN ONCE PRN Pain Lisinopril 20 mg 11/07/22 06:00 11/08/22 07:00 Lisinopril 20 Mg Tablet PO 11/06/23 08:59 20 mg DAILY@0600 [facility] Administration Magnesium Hydroxide 30 ml 11/07/22 07:45 [...] . Documented By: Rubi Ramos MD 11/12/22 1648 Signed By: <Electronically signed by Rubi Ramos MD> 11/12/[address] [facility] Work Phone: [phone]) [phone] Progress note Author Reginald Arroyo [facility] November 12, 2022 2:57pm Note Date/Time November 12, 2022 8:07am [facility] [address] [place] [address] Pulmonology Progress Note Signed Patient: Lori Anton MR#: [id number] : 1965 Acct:[id number] Age/Sex: 57 / M Adm Date: 3 Loc: Room: [address] [place] [address] Type: ADM IN Attending Dr: Rubi Ramos [...] supportive care. Documented By: Reginald Arroyo MD [id number] Signed By: <Electronically signed by MD Reginald Arroyo> 11/12/[address] [facility] Work Phone: [phone] Progress note Author Rubi Ramos [facility] November 12, 2022 1:03am Note Date/Time November 11, 2022 5:50pm [facility] [address] [place] [address] Hospitalist Progress Note Signed Patient: Lori Anton MR#: [id number] : 1965 Acct:[id number] Age/Sex: 57 / M Adm Date: 3 Loc: Room: [address] [place] [address] Type: ADM IN Attending Dr: Rubi Ramos MD Copies to: ~ Date of Service: 11/11/2022 Subjective Subjective Narrative: Assessment And Plan 57M with PMH of HTN, DJD, Tobacco abuse, Depression who p/w ever, cough, and right-sided chest pain to the [facility] ED and Transferred for the evaluation and treatment of Bacterial pneumonia Bacterial pneumonia/Parainfluenza Infection still have leukocytosis (he is on steroids) , borderline fever at night Per chest CTA report done at [facility], there is evidence of 2.6 cm right [...] . Documented By: Rubi Ramos MD 11/11/22 1749 Signed By: <Electronically signed by Rubi Ramos MD> 11/12/[address] [facility] Work Phone: 1([phone]) [phone] Progress note Author Reginald Arroyo [facility] November 11, 2022 2:52pm Note Date/Time November 11, 2022 2:42pm [facility] [address] [place] [address] Pulmonology Progress Note Signed Patient: Lori Anton MR#: [id number] : 1965 Acct:[id number] Age/Sex: 57 / M Adm Date: 3 Loc: Room: [address] [place] [address] Type: ADM IN Attending Dr: Rubi Ramos [...] <Electronically signed by MD Reginald Arroyo> 11/11/[address] [facility] Work Phone: [phone]) [phone] Progress note Author Sanjay Holt [facility] November 11, 2022 11:18am Note Date/Time November 11, 2022 11:18a m [facility] [address] [place] [address] Infect. Disease Progress Note Signed Patient: Lori Anton MR#: [id number] : 1965 Acct:[id number] Age/Sex: 57 / M Adm Date: 3 Loc: Room: [address] [place] [address] Type: ADM IN Attending Dr: Rubi Ramos [...] ml @ 100 mls/hr IV Q8H [facility] Rx#:[id number] fentaNYL 1,000 mcg-*D5W* 1,000 100 / 400 200 / 200 mcg In 100 ml @ 25 MCG/HR 2.5 mls/hr IV .Q24H [facility] Rx#: [id number] propofoL 1,000 mg In 100 ml @ 200 / 600 200 / 300 100 / 300 20 MCG/KG/MIN 12.6 mls/hr IV . Q7H57M [facility] Rx#:[id number] Tube Feeding 480 / 1440 480 / [...] related structures Neck Neck: normal visual inspection (5 R IJ CVC) Chest Chest palpation & [...] Appearance Clear Urine pH 7.5 Ur Specific [place] 1.016 Urine Protein Negative Urine Glucose (UA) [...] Q6HR [facility] Stop: 11/07/23 11:59 Last Admin: 11/11/22 05:23 Dose: 6 puff Albuterol/Ipratropium (Ipratropium/Albuterol 0.5-3 Mg 3 Ml Ampul.Neb) 3 ml INHALATION QID.RESP [facility] Stop: 11/05/23 07:59 Last Admin: 11/07/22 09:05 Dose: Not Given Amlodipine Besylate (Amlodipine 10 Mg Tablet) 10 mg PO DAILY@0600 [facility] Stop: 11/05/23 08:59 Last Admin: 11/08/22 07:00 Dose: 10 mg Budesonide (Budesonide 0.5 Mg/2 Ml Ampul.Neb) 0.5 mg INHALATION BID [facility] Stop: 11/05/23 11:39 Last Admin: 11/06/22 20:43 Dose: 0.5 mg Buprenorphine HCl (Buprenorphine Hcl 2 Mg Tab.Subl) 2 mg SUBLINGUAL BID@0600,1800 [facility] Stop: 05/06/23 05:59 Last Admin: 11/07/22 06:38 Dose: 2 mg Carvedilol (Carvedilol 12.5 Mg Tablet) 12.5 mg PO BID@0600,1800 [facility] Stop: 11/06/23 20:59 Last Admin: 11/08/22 07:00 Dose: 12.5 mg Chlorhexidine Gluconate (Chlorhexidine Gluconate 0.12% 15 Ml Udc) 15 ml MUCOUS MEM BID [facility] Stop: 11/07/23 09:09 Last Admin: 11/11/22 08:53 Dose: 15 ml Docusate Sodium (Docusate Liquid 100 Mg/10 Ml Udc) 100 mg OG-TUBE BID [facility] Stop: 11/07/23 08:59 Last Admin: 11/11/22 08:53 Dose: 100 mg Enoxaparin Sodium (Enoxaparin 40 Mg/0.4 Ml Syringe) 40 mg SUBCUT DAILY@1000 [facility] Stop: 11/06/23 09:59 Last Admin: 11/11/22 11:08 Dose: 40 mg Fluoxetine HCl (Fluoxetine Soln 20 Mg/5 Ml) 40 mg PO HS [facility] Stop: 11/07/23 21:59 Last Admin: 11/10/22 21:53 Dose: 40 mg Fluoxetine HCl (Fluoxetine Soln 20 Mg/5 Ml) 20 mg PO DAILY@0600 [facility] Stop: 11/08/23 05:59 Last Admin: 05/05/23 06:16 Dose: 20 mg Guaifenesin (Guaifenesin 600 Mg Tab.Er.12h) 1,200 mg PO BID [facility] Stop: 11/06/23 12:54 Last Admin: 11/06/22 20:51 Dose: 1,200 mg Levofloxacin (Levaquin) 750 mg in 150 mls @ 100 mls/hr IV Q24H [facility] Last Admin: 11/10/22 21:53 Dose: 100 mls/hr Clindamycin Phosphate (Cleocin) 600 mg in 50 mls @ 100 mls/hr IV Q8H [facility] Last Admin: 11/11/22 11:08 Dose: 100 mls/hr Fentanyl (Fentanyl 1,000 Mcg/100 Ml D5w) 1,000 mcg in 100 mls @ 2.5 mls/hr IV .Q24H [facility]; Protocol Last Admin: 11/11/22 07:45 Dose: 200 mcg/hr, 20 mls/hr Propofol (Diprivan) 1,000 mg in 100 mls @ 12.6 mls/hr IV .Q7H57M [facility]; Protocol Stop: 11/07/23 07:59 Last Admin: 11/11/22 08:52 Dose: 50 mcg/kg/min, 31.5 mls/hr Sodium Chloride (0.9% Sodium Chloride 1,000 Ml) 1,000 mls @ 75 mls/hr IV .[id number] [facility] Stop: 11/07/23 09:59 Last Admin: 11/10/22 23:51 Dose: Not Given Midazolam HCl (Versed) 100 mg in 100 mls @ 1 mls/hr IV .Q24H [facility]; Protocol Stop: 05/08/23 10:59 Last Admin: 11/11/22 11:08 Dose: 6 mg/hr, 6 mls/hr Insulin Aspart (Insulin Aspart 300 Units/3 Ml Insuln.Pen) 0 units SUBCUT Q6HR [facility]; Protocol Stop: 11/08/23 11:59 Last Admin: 11/11/22 [...] 20 Mg Tablet) 20 mg PO DAILY@0600 [facility] Stop: 11/06/23 08:59 Last Admin: 11/08/22 07:00 Dose: 20 mg Magnesium Hydroxide (Magnesium Hydroxide Susp 30 Ml Udc) 30 ml PO DAILY PRN PRN Reason: Constipation Stop: 11/07/23 07:44 Methylprednisolone Sodium Succinate (Methylprednisolone Sod Succ/Pf 40 Mg/Ml (1ml) Vial) 40 mg IV-PUSH DAILY [facility] Stop: 11/10/23 08:59 Last Admin: 11/11/22 08:53 Dose: 40 mg Metoprolol Tartrate (Metoprolol Tartrate 5 Mg/5 Ml Vial) 5 mg IV-PUSH Q5M PRN PRN Reason: Tachyarrhythmias Last Admin: 11/07/22 05:25 Dose: 5 mg Nicotine (Nicotine Patch 21 Mg/24hr 1 Each Patch.Td24) 1 each TRANSDERML DAILY PRN PRN Reason: Nicotine Cravings Stop: 12/16/22 09:01 Pantoprazole Sodium (Pantoprazole 40 Mg Vial) 40 mg IV-PUSH DAILY [facility] Stop: 11/08/23 08:59 Last Admin: 11/11/22 08:53 Dose: 40 mg Potassium Chloride (Potassium Chloride Er 20 Meq Tab.Er.Prt) 40 meq PO DAILY PRN PRN Reason: Hypokalemia Stop: 11/05/23 06:40 Last Admin: 11/05/22 08:43 Dose: 40 meq Sennosides (Sennosides Syrup 8.8 Mg/5 Ml Udc) 8.8 mg PO BID [facility] Stop: 11/07/23 08:59 Last Admin: 11/11/22 08:53 Dose: 8.8 mg Sodium Chloride (Sodium Chloride 0.9 % 10 Ml Syringe) 0 ml IV-PUSH QSHIFT [facility] Stop: 11/05/23 05:59 Last Admin: 11/11/22 06:17 Dose: 30 ml Sodium Chloride (Sodium Chloride 0.9 % 10 Ml Syringe) 10 ml IV-PUSH PRN PRN PRN Reason: Flush Stop: 11/07/23 08:37 Sodium Chloride (Sodium Chloride 0.9 % 10 Ml Vial.Pf) 10 ml INJECTION DAILY [facility] Stop: 11/08/23 08:59 Last Admin: 11/11/22 08:53 [...] cultures remain negative. Respiratory PCR panel at [facility] without targeted pathogen but parainfluenza 3 virus [...] By: <Electronically signed by MD Sanjay Holt> 11/11/228 [facility] Work Phone: [phone]) 187-957705-05-2023 Progress note Author Rubi Ramos [facility] November 11, 2022 12:31am Note Date/Time November 10, 2022 6:42pm [facility] [address] [place] [address] Hospitalist Progress Note Signed Patient: Lori Anton MR#: [id number] : 1965 Acct:[id number] Age/Sex: 57 / M Adm Date: 3 Loc: Room: [address] [place] [address] Type: ADM IN Attending Dr: Rubi Ramos MD Copies to: ~ Date of Service: 11/10/2022 Subjective Subjective Narrative: Assessment And Plan 57M with PMH of HTN, DJD, Tobacco abuse, Depression who p/w ever, cough, and right-sided chest pain to the [facility] ED and Transferred for the evaluation and treatment of Bacterial pneumonia Bacterial pneumonia/Parainfluenza Infection Mild fever spike this morning UA was not suggestive for UTI, blood Cx obtained, leukocytosis Per chest CTA report done at [facility], there is evidence of 2.6 cm right [...] 1,000 Ml IV 11/07/23 09:59 75 mls/hr .[id number] [facility] Administration Midazolam HCl 100 mg in [...] signed by Rubi Ramos MD> 11/11/[address] [facility] Work Phone: [phone] 354-986405-04-2023 Progress note Author Ismael Huitron [facility] November 10, 2022 2:27pm Note Date/Time November 10, 2022 2:27pm [facility] [address] [place] [address] Pulmonology Progress Note Signed Patient: Lori Anton MR#: [id number] : 1965 Acct:[id number] Age/Sex: 57 / M Adm Date: 3 Loc: Room: [address] [place] [address] Type: ADM IN Attending Dr: Rubi Ramos [...] pneumothorax: Plan: Patient required placement of 32 Bangladeshi chest tube to keep up with his [...] continue suctioning to -20 from both 32 Bangladeshi chest tubes * CC time 35 minutes Documented By: Ismael Huitron MD 11/10/221421 Signed By: <Electronically signed by Ismael Huitron MD> 11/10/[address] [facility] Work Phone: [phone] Progress note Author Sanjay Holt [facility] November 10, 2022 9:42am Note Date/Time November 10, 2022 9:38am [facility] [address] [place] [address] Infect. Disease Progress Note Signed Patient: Lori Anton MR#: [id number] : 1965 Acct:[id number] Age/Sex: 57 / M Adm Date: 3 Loc: Room: [address] [place] [address] Type: ADM IN Attending Dr: Rubi Ramos [...] Puff/18 Gm Inhaler) 6 puff VENT Q6HR [facility] Stop: 11/07/23 11:59 Last Admin: 11/10/22 06:30 Dose: 6 puff Albuterol/Ipratropium (Ipratropium/Albuterol 0.5-3 Mg 3 Ml Ampul.Neb) 3 ml INHALATION QID.RESP [facility] Stop: 11/05/23 07:59 Last Admin: 11/07/22 09:05 Dose: Not Given Amlodipine Besylate (Amlodipine 10 Mg Tablet) 10 mg PO DAILY@0600 [facility] Stop: 11/05/23 08:59 Last Admin: 11/08/22 07:00 Dose: 10 mg Budesonide (Budesonide 0.5 Mg/2 Ml Ampul.Neb) 0.5 mg INHALATION BID [facility] Stop: 11/05/23 11:39 Last Admin: 11/06/22 20:43 Dose: 0.5 mg Buprenorphine HCl (Buprenorphine Hcl 2 Mg Tab.Subl) 2 mg SUBLINGUAL BID@0600,1800 [facility] Stop: 05/06/23 05:59 Last Admin: 11/07/22 06:38 Dose: 2 mg Carvedilol (Carvedilol 12.5 Mg Tablet) 12.5 mg PO BID@0600,1800 [facility] Stop: 11/06/23 20:59 Last Admin: 11/08/22 07:00 Dose: 12.5 mg Chlorhexidine Gluconate (Chlorhexidine Gluconate 0.12% 15 Ml Udc) 15 ml MUCOUS MEM BID [facility] Stop: 11/07/23 09:09 Last Admin: 11/10/22 08:57 Dose: 15 ml Docusate Sodium (Docusate Liquid 100 Mg/10 Ml Udc) 100 mg OG-TUBE BID [facility] Stop: 11/07/23 08:59 Last Admin: 11/10/22 08:57 Dose: 100 mg Enoxaparin Sodium (Enoxaparin 40 Mg/0.4 Ml Syringe) 40 mg SUBCUT DAILY@1000 [facility] Stop: 11/06/23 09:59 Last Admin: 11/10/22 09:00 Dose: 40 mg Fluoxetine HCl (Fluoxetine Soln 20 Mg/5 Ml) 40 mg PO HS [facility] Stop: 11/07/23 21:59 Last Admin: 11/09/22 21:43 Dose: 40 mg Fluoxetine HCl (Fluoxetine Soln 20 Mg/5 Ml) 20 mg PO DAILY@0600 [facility] Stop: 11/08/23 05:59 Last Admin: 11/10/22 05:48 Dose: 20 mg Guaifenesin (Guaifenesin 600 Mg Tab.Er.12h) 1,200 mg PO BID [facility] Stop: 11/06/23 12:54 Last Admin: 11/06/22 20:51 Dose: 1,200 mg Levofloxacin (Levaquin) 750 mg in 150 mls @ 100 mls/hr IV Q24H [facility] Last Admin: 11/09/22 21:22 Dose: 100 mls/hr Clindamycin Phosphate (Cleocin) 600 mg in 50 mls @ 100 mls/hr IV Q8H [facility] Last Admin: 11/10/22 09:00 Dose: 100 mls/hr Fentanyl (Fentanyl 1,000 Mcg/100 Ml D5w) 1,000 mcg in 100 mls @ 2.5 mls/hr IV .Q24H [facility]; Protocol Last Admin: 11/10/22 08:57 Dose: 200 mcg/hr, 20 mls/hr Propofol (Diprivan) 1,000 mg in 100 mls @ 12.6 mls/hr IV .Q7H57M [facility]; Protocol Stop: 11/07/23 07:59 Last Admin: 11/10/22 07:51 Dose: 50 mcg/kg/min, 31.5 mls/hr Sodium Chloride (0.9% Sodium Chloride 1,000 Ml) 1,000 mls @ 75 mls/hr IV .[id number] [facility] Stop: 11/07/23 09:59 Last Admin: 11/10/22 06:29 Dose: Not Given Midazolam HCl (Versed) 100 mg in 100 mls @ 1 mls/hr IV .Q24H [facility]; Protocol Stop: 05/08/23 10:59 Last Titration: 11/10/22 06:34 Dose: 6 mg/hr, 6 mls/hr Insulin Aspart (Insulin Aspart 300 Units/3 Ml Insuln.Pen) 0 units SUBCUT Q6HR [facility]; Protocol Stop: 11/08/23 11:59 Last Admin: 11/10/22 [...] 20 Mg Tablet) 20 mg PO DAILY@0600 [facility] Stop: 11/06/23 08:59 Last Admin: 11/08/22 07:00 Dose: 20 mg Magnesium Hydroxide (Magnesium Hydroxide Susp 30 Ml Udc) 30 ml PO DAILY PRN PRN Reason: Constipation Stop: 11/07/23 07:44 Methylprednisolone Sodium Succinate (Methylprednisolone Sod Succ/Pf 40 Mg/Ml (1ml) Vial) 40 mg IV-PUSH DAILY [facility] Stop: 11/10/23 08:59 Last Admin: 11/10/22 08:56 Dose: 40 mg Metoprolol Tartrate (Metoprolol Tartrate 5 Mg/5 Ml Vial) 5 mg IV-PUSH Q5M PRN PRN Reason: Tachyarrhythmias Last Admin: 11/07/22 05:25 Dose: 5 mg Nicotine (Nicotine Patch 21 Mg/24hr 1 Each Patch.Td24) 1 each TRANSDERML DAILY PRN PRN Reason: Nicotine Cravings Stop: 12/16/22 09:01 Pantoprazole Sodium (Pantoprazole 40 Mg Vial) 40 mg IV-PUSH DAILY [facility] Stop: 11/08/23 08:59 Last Admin: 11/10/22 08:57 Dose: 40 mg Potassium Chloride (Potassium Chloride Er 20 Meq Tab.Er.Prt) 40 meq PO DAILY PRN PRN Reason: Hypokalemia Stop: 11/05/23 06:40 Last Admin: 11/05/22 08:43 Dose: 40 meq Sennosides (Sennosides Syrup 8.8 Mg/5 Ml Udc) 8.8 mg PO BID [facility] Stop: 11/07/23 08:59 Last Admin: 11/10/22 08:57 [...] 10 Ml Vial.Pf) 10 ml INJECTION DAILY [facility] Stop: 11/08/23 08:59 Last Admin: 11/10/22 08:58 [...] cultures remain negative. Respiratory PCR panel at [facility] without targeted pathogen but parainfluenza 3 virus [...] By: <Electronically signed by MD Sanjay Holt> 11/10/[address] [facility] Work Phone: [phone] Progress note Author Rubi Ramos [facility] November 10, 2022 1:16am Note Date/Time November 09, 2022 7:10pm [facility] [address] [place] [address] Hospitalist Progress Note Signed Patient: Lori Anton MR#: [id number] : 1965 Acct:[id number] Age/Sex: 57 / M Adm Date: 3 Loc: Room: [address] [place] [address] Type: ADM IN Attending Dr: Rubi Ramos MD Copies to: ~ Date of Service: 11/09/2022 Subjective Subjective Narrative: Assessment And Plan 57M with PMH of HTN, DJD, Tobacco abuse, Depression who p/w ever, cough, and right-sided chest pain to the [facility] ED and Transferred for the evaluation and treatment of Bacterial pneumonia/Parainfluenza Infection Afebrile, leukocytosis is resolving , Per chest CTA report done at [facility], there is evidence of 2.6 cm right [...] 1,000 Ml IV 11/07/23 09:59 Not Given .[id number] [facility] Midazolam HCl 100 mg in 100 mls @ 1 mls/hr 11/09/22 11:00 11/09/22 17:35 Versed IV 05/08/23 10:59 5 mg/hr .Q24H [facility] 5 mls/hr Titration Protocol 1 MG/HR Insulin Aspart 0 units 11/08/22 12:00 11/09/22 18:31 Insulin Aspart 300 Units/3 Ml Insuln.Pen SUBCUT 11/08/23 11:59 Not Given Q6HR [facility] Protocol Ketorolac Tromethamine 30 mg 11/06/22 12:52 11/07/22 04:21 Ketorolac Tromethamine 30 Mg/Ml Vial IV-PUSH 11/11/22 12:51 30 mg Q6H PRN Administration Pain Scale 7 - 10 Lidocaine HCl 10 ml 11/09/22 13:55 Lidocaine 1% Pf 5 Ml Inj.Zara INFILTRATN ONCE PRN Pain Lisinopril 20 mg 11/07/22 06:00 11/08/22 07:00 Lisinopril 20 Mg Tablet PO 11/06/23 08:59 20 mg DAILY@0600 [facility] Administration Magnesium Hydroxide 30 ml 11/07/22 07:45 [...] signed by Rubi Ramos MD> 11/10/[address] [facility] Work Phone: [phone] Progress note Author Ismael Huitron [facility] November 09, 2022 3:14pm Note Date/Time November 09, 2022 1:23pm [facility] [address] [place] [address] Pulmonology Progress Note Signed Patient: Lori Anton MR#: [id number] : 1965 Acct:[id number] Age/Sex: 57 / M Adm Date: 3 Loc: Room: [address] [place] [address] Type: ADM IN Attending Dr: Rubi Ramos MD Copies to: ~ Date of Service: 11/09/2022 Subjective Subjective Narrative: Patient continued to improve after placement of second chest tube, his air leak has diminished markedly since, chest x-ray continued show complete reexpansion of the lung, I will remove his small pneumothorax catheter from the right midclavicular area and maintain the large 32 Bangladeshi chest tube in place with suctioning at [...] Total 637 / 1442 646 / 666 Balance 135 / 1030 -154 [...] pneumothorax: Plan: Patient required placement of 32 Bangladeshi chest tube to keep up with his [...] <Electronically signed by Ismael Huitron MD> 11/09/[address] [facility] Work Phone: [phone] [facility] Progress note Author Sanjay Holt [facility] November 09, 2022 9:12am Note Date/Time November 09, 2022 9:08am [facility] [address] [place] [address] Infect. Disease Progress Note Signed Patient: Lori Anton MR#: [id number] : 1965 Acct:[id number] Age/Sex: 57 / M Adm Date: 3 Loc: Room: [address] [place] [address] Type: ADM IN Attending Dr: Rubi Ramos [...] Puff/18 Gm Inhaler) 6 puff VENT Q6HR [facility] Stop: 11/07/23 11:59 Last Admin: 11/09/22 06:31 Dose: 6 puff Albuterol/Ipratropium (Ipratropium/Albuterol 0.5-3 Mg 3 Ml Ampul.Neb) 3 ml INHALATION QID.RESP [facility] Stop: 11/05/23 07:59 Last Admin: 11/07/22 09:05 Dose: Not Given Amlodipine Besylate (Amlodipine 10 Mg Tablet) 10 mg PO DAILY@0600 [facility] Stop: 11/05/23 08:59 Last Admin: 11/08/22 07:00 Dose: 10 mg Budesonide (Budesonide 0.5 Mg/2 Ml Ampul.Neb) 0.5 mg INHALATION BID [facility] Stop: 11/05/23 11:39 Last Admin: 11/06/22 20:43 Dose: 0.5 mg Buprenorphine HCl (Buprenorphine Hcl 2 Mg Tab.Subl) 2 mg SUBLINGUAL BID@06,1800 [facility] Stop: 05/06/23 05:59 Last Admin: 11/07/22 06:38 Dose: 2 mg Carvedilol (Carvedilol 12.5 Mg Tablet) 12.5 mg PO BID@0600,1800 [facility] Stop: 11/06/23 20:59 Last Admin: 11/08/22 07:00 Dose: 12.5 mg Chlorhexidine Gluconate (Chlorhexidine Gluconate 0.12% 15 Ml Udc) 15 ml MUCOUS MEM BID [facility] Stop: 11/07/23 09:09 Last Admin: 11/09/22 08:28 Dose: 15 ml Docusate Sodium (Docusate Liquid 100 Mg/10 Ml Udc) 100 mg OG-TUBE BID [facility] Stop: 11/07/23 08:59 Last Admin: 11/09/22 08:28 Dose: 100 mg Enoxaparin Sodium (Enoxaparin 40 Mg/0.4 Ml Syringe) 40 mg SUBCUT DAILY@1000 [facility] Stop: 11/06/23 09:59 Last Admin: 11/08/22 10:14 Dose: 40 mg Fluoxetine HCl (Fluoxetine Soln 20 Mg/5 Ml) 40 mg PO HS [facility] Stop: 11/07/23 21:59 Last Admin: 11/08/22 21:00 Dose: 40 mg Fluoxetine HCl (Fluoxetine Soln 20 Mg/5 Ml) 20 mg PO DAILY@0600 [facility] Stop: 11/08/23 05:59 Last Admin: 11/09/22 05:06 Dose: 20 mg Guaifenesin (Guaifenesin 600 Mg Tab.Er.12h) 1,200 mg PO BID [facility] Stop: 11/06/23 12:54 Last Admin: 11/06/22 20:51 Dose: 1,200 mg Levofloxacin (Levaquin) 750 mg in 150 mls @ 100 mls/hr IV Q24H [facility] Last Infusion: 11/08/22 23:10 Dose: Infused Clindamycin Phosphate (Cleocin) 600 mg in 50 mls @ 100 mls/hr IV Q8H [facility] Last Infusion: 11/09/22 02:31 Dose: Infused Fentanyl (Fentanyl 1,000 Mcg/100 Ml D5w) 1,000 mcg in 100 mls @ 2.5 mls/hr IV .Q24H [facility]; Protocol Last Admin: 11/08/22 21:01 Dose: 100 mcg/hr, 10 mls/hr Propofol (Diprivan) 1,000 mg in 100 mls @ 12.6 mls/hr IV .Q7H57M [facility]; Protocol Stop: 11/07/23 07:59 Last Titration: 11/09/22 05:39 Dose: 40 mcg/kg/min, 25.2 mls/hr Sodium Chloride (0.9% Sodium Chloride 1,000 Ml) 1,000 mls @ 75 mls/hr IV .[id number] [facility] Stop: 11/07/23 09:59 Last Admin: 11/09/22 06:07 Dose: 75 mls/hr Cisatracurium Besylate 200 mg/ (Dextrose) 200 mls @ 12.6 mls/hr IV .[id number] [facility]; Protocol Stop: 11/07/23 10:29 Last Titration: 11/09/22 00:34 Dose: 3 mcg/kg/min, 18.9 mls/hr Insulin Aspart (Insulin Aspart 300 Units/3 Ml Insuln.Pen) 0 units SUBCUT Q6HR [facility]; Protocol Stop: 11/08/23 11:59 Last Admin: 11/09/22 05:26 Dose: Not Given Ketorolac Tromethamine (Ketorolac Tromethamine 30 Mg/Ml Vial) 30 mg IV-PUSH Q6HPRN PRN Reason: Pain Scale 7 - 10 Stop: 11/11/22 12:51 Last Admin: 11/07/22 04:21 Dose: 30 mg Lisinopril (Lisinopril 20 Mg Tablet) 20 mg PO DAILY@0600 [facility] Stop: 11/06/23 08:59 Last Admin: 11/08/22 07:00 Dose: 20 mg Magnesium Hydroxide (Magnesium Hydroxide Susp 30 Ml Udc) 30 ml PO DAILY PRN PRN Reason: Constipation Stop: 11/07/23 07:44 Methylprednisolone Sodium Succinate (Methylprednisolone Sod Succ/Pf 40 Mg/Ml (1ml) Vial) 40 mg IV-PUSH Q8HR [facility] Stop: 11/05/23 13:59 Last Admin: 11/09/22 05:06 Dose: 40 mg Metoprolol Tartrate (Metoprolol Tartrate 5 Mg/5 Ml Vial) 5 mg IV-PUSH Q5M PRN PRN Reason: Tachyarrhythmias Last Admin: 11/07/22 05:25 Dose: 5 mg Nicotine (Nicotine Patch 21 Mg/24hr 1 Each Patch.Td24) 1 each TRANSDERML DAILY PRN PRN Reason: Nicotine Cravings Stop: 12/16/22 09:01 Pantoprazole Sodium (Pantoprazole 40 Mg Vial) 40 mg IV-PUSH DAILY [facility] Stop: 11/08/23 08:59 Last Admin: 11/09/22 08:28 Dose: 40 mg Potassium Chloride (Potassium Chloride Er 20 Meq Tab.Er.Prt) 40 meq PO DAILY PRN PRN Reason: Hypokalemia Stop: 11/05/23 06:40 Last Admin: 11/05/22 08:43 Dose: 40 meq Sennosides (Sennosides Syrup 8.8 Mg/5 Ml Udc) 8.8 mg PO BID [facility] Stop: 11/07/23 08:59 Last Admin: 11/09/22 08:28 Dose: 8.8 mg Sodium Chloride (Sodium Chloride 0.9 % 10 Ml Syringe) 0 ml IV-PUSH QSHIFT [facility] Stop: 11/05/23 05:59 Last Admin: 11/09/22 05:07 [...] cultures remain negative. Respiratory PCR panel at [facility] without targeted pathogen but parainfluenza 3 virus targeted here. Legionella urine antigen negative, Legionella antibodies negative. Urinestrep antigen negative. HIV negative. Continues on Levaquin and Flagyl. Day 5of antibiotics Documented By: Sanjay Holt MD 11/09/22905 Signed By: <Electronically signed by MD Sanjay Holt> 11/09/[address] [facility] Work Phone: [phone] Progress note Author Rubi Ramos [facility] November 09, 2022 1:09am Note Date/Time November 08, 2022 7:20pm [facility] [address] [place] [address] Hospitalist Progress Note Signed Patient: Lori Anton MR#: [id number] : 1965 Acct:[id number] Age/Sex: 57 / M Adm Date: 3 Loc: 4C Room: [address] [place] [address] Type: ADM IN Attending Dr: Rubi Ramos [...] 1,000 Ml IV 11/07/23 09:59 Not Given .[id number] [facility] Cisatracurium Besylate 200 mg/ 200 mls @ 12.6 mls/hr 11/07/22 10:30 11/08/22 17:38 Dextrose IV 11/07/23 10:29 3 mcg/kg/min .[id number] [facility] 18.9 mls/hr Titration Protocol 2 MCG/KG/MIN Norepinephrine Bitartrate 8 mg in 250 mls @ 3.75 mls/hr 11/07/22 17:15 11/08/22 17:39 Levophed IV 11/07/23 17:14 Not Given .Q24H [facility] Protocol 2 MCG/MIN Insulin Aspart 0 units 11/08/22 12:00 11/08/22 17:45 Insulin Aspart 300 Units/3 Ml Insuln.Pen SUBCUT 11/08/23 11:59 Not Given Q6HR [facility] Protocol Ketorolac Tromethamine 30 mg 11/06/22 12:52 11/07/22 04:21 Ketorolac Tromethamine 30 Mg/Ml Vial IV-PUSH 11/11/22 12:51 30 mg Q6H PRN Administration Pain Scale 7 - 10 Lisinopril 20 mg 11/07/22 06:00 11/08/22 07:00 Lisinopril 20 Mg Tablet PO 11/06/23 08:59 20 mg DAILY@0600 [facility] Administration Magnesium Hydroxide 30 ml 11/07/22 07:45 [...] signed by Rubi Ramos MD> 11/09/[address] [facility] Work Phone: 1([phone] 269-810505-02-2023 Progress note Author Ismael Huitron [facility] November 08, 2022 3:23pm Note Date/Time November 08, 2022 3:23pm [facility] [address] [place] [address] Pulmonology Progress Note Signed Patient: Lori Anton MR#: [id number] : 1965 Acct:[id number] Age/Sex: 57 / M Adm Date: 3 Loc: Room: [address] [place] [address] Type: ADM IN Attending Dr: Rubi Ramos MD Copies to: ~ Date of Service: 11/08/2022 Subjective Subjective Narrative: Patient has stabilized from the respiratory standpoint overnight but had worsening air leak from his chest tube now continuous air leak is noted this morning, chest x-ray showed worsening right pneumothorax, immediately after seeing that I placed a 32 Bangladeshi chest tube in addition to the small pneumothorax catheter in place, he had continuous air leak from both, and chest x-ray showed complete reexpansion of the lung after the second chest tube placement. This was accompanied by improving oxygenation he is down to 40% [id number]. I started weaning PEEP down as well [...] pneumothorax: Plan: Patient required placement of 32 Bangl[place]hi chest tube to keep up with his [...] signed by Ismael Huitron MD> 11/08/[address] [facility] Work Phone: [phone] 175-926505-02-2023 [facility] Progress note Author Sanjay Holt [facility] November 08, 2022 8:52am Note Date/Time November 08, 2022 8:47am [facility] [address] [place] [address] Infect. Disease Progress Note Signed Patient: Lori Anton MR#: [id number] : 1965 Acct:[id number] Age/Sex: 57 / M Adm Date: 3 Loc: Room: [address] [place] [address] Type: ADM IN Attending Dr: Rubi Ramos [...] ml @ 2 MCG/KG/MIN 12.6 mls/hr IV .[id number] [facility] Rx#:[id number] Clindamycin 600 mg/50 ml-*D5w* 50 / 150 50 / 50 600 mg In 50 ml @ 100 mls/hr IV Q8H [facility] Rx#:[id number] Sodium Chloride 0.9% 1,000 ml 1 1000 / 1000 ,000 ml @ 75 mls/hr IV .[id number] [facility] Rx#:[id number] fentaNYL 1,000 mcg-*D5W* 1,000 100 / 200 mcg In 100 ml @ 25 MCG/HR 2.5 mls/hr IV .Q24H [facility] Rx#: [id number] levoFLOXacin 750MG-*D5W* 750 mg 150 / 150 In 150 ml @ 100 mls/hr IV Q24H [facility] Rx#:[id number] propofoL 1,000 mg In 100 ml @ 200 / 400 100 / 100 20 MCG/KG/MIN 12.6 mls/hr IV . Q7H57M [facility] Rx#:[id number] Tube Feeding 0 / 0 Tube Irrigant [...] related structures Neck Neck: normal visual inspection (5 R IJ CVC) Chest Chest palpation & [...] Puff/18 Gm Inhaler) 6 puff VENT Q6HR [facility] Stop: 11/07/23 11:59 Last Admin: 11/08/22 05:35 Dose: 6 puff Albuterol/Ipratropium (Ipratropium/Albuterol 0.5-3 Mg 3 Ml Ampul.Neb) 3 ml INHALATION QID.RESP [facility] Stop: 11/05/23 07:59 Last Admin: 11/07/22 09:05 Dose: Not Given Amlodipine Besylate (Amlodipine 10 Mg Tablet) 10 mg PO DAILY@0600 [facility] Stop: 11/05/23 08:59 Last Admin: 11/08/22 07:00 Dose: 10 mg Budesonide (Budesonide 0.5 Mg/2 Ml Ampul.Neb) 0.5 mg INHALATION BID [facility] Stop: 11/05/23 11:39 Last Admin: 11/06/22 20:43 Dose: 0.5 mg Buprenorphine HCl (Buprenorphine Hcl 2 Mg Tab.Subl) 2 mg SUBLINGUAL BID@0600,1800 [facility] Stop: 05/06/23 05:59 Last Admin: 11/07/22 06:38 Dose: 2 mg Carvedilol (Carvedilol 12.5 Mg Tablet) 12.5 mg PO BID@0600,1800 [facility] Stop: 11/06/23 20:59 Last Admin: 11/08/22 07:00 Dose: 12.5 mg Chlorhexidine Gluconate (Chlorhexidine Gluconate 0.12% 15 Ml Udc) 15 ml MUCOUS MEM BID [facility] Stop: 11/07/23 09:09 Last Admin: 11/07/22 21:56 Dose: 15 ml Docusate Sodium (Docusate Liquid 100 Mg/10 Ml Udc) 100 mg OG-TUBE BID [facility] Stop: 11/07/23 08:59 Last Admin: 11/07/22 21:56 Dose: 100 mg Enoxaparin Sodium (Enoxaparin 40 Mg/0.4 Ml Syringe) 40 mg SUBCUT DAILY@1000 [facility] Stop: 11/06/23 09:59 Last Admin: 11/07/22 10:37 Dose: 40 mg Fluoxetine HCl (Fluoxetine Soln 20 Mg/5 Ml) 40 mg PO HS [facility] Stop: 11/07/23 21:59 Last Admin: 11/07/22 21:57 Dose: 40 mg Fluoxetine HCl (Fluoxetine Soln 20 Mg/5 Ml) 20 mg PO DAILY@0600 [facility] Stop: 11/08/23 05:59 Last Admin: 11/08/22 07:00 Dose: 20 mg Guaifenesin (Guaifenesin 600 Mg Tab.Er.12h) 1,200 mg PO BID [facility] Stop: 11/06/23 12:54 Last Admin: 11/06/22 20:51 Dose: 1,200 mg Levofloxacin (Levaquin) 750 mg in 150 mls @ 100 mls/hr IV Q24H [facility] Last Infusion: 11/07/22 23:33 Dose: Infused Clindamycin Phosphate (Cleocin) 600 mg in 50 mls @ 100 mls/hr IV Q8H [facility] Last Infusion: 11/08/22 06:00 Dose: Infused Fentanyl (Fentanyl 1,000 Mcg/100 Ml D5w) 1,000 mcg in 100 mls @ 2.5 mls/hr IV .Q24H [facility]; Protocol Last Admin: 11/08/22 02:00 Dose: 100 mcg/hr, 10 mls/hr Propofol (Diprivan) 1,000 mg in 100 mls @ 12.6 mls/hr IV .Q7H57M [facility]; Protocol Stop: 11/07/23 07:59 Last Admin: 11/08/22 04:01 Dose: 35 mcg/kg/min, 22.05 mls/hr Sodium Chloride (0.9% Sodium Chloride 1,000 Ml) 1,000 mls @ 75 mls/hr IV .[id number] [facility] Stop: 11/07/23 09:59 Last Admin: 11/07/22 23:32 Dose: 75 mls/hr Cisatracurium Besylate 200 mg/ (Dextrose) 200 mls @ 12.6 mls/hr IV .[id number] [facility]; Protocol Stop: 11/07/23 10:29 Last Admin: 11/08/22 06:29 Dose: 2 mcg/kg/min, 12.6 mls/hr Norepinephrine Bitartrate (Levophed) 8 mg in 250 mls @ 3.75 mls/hr IV .Q24H [facility]; Protocol Stop: 11/07/23 17:14 Last Admin: 11/08/22 07:54 Dose: Not Given Ketorolac Tromethamine (Ketorolac Tromethamine 30 Mg/Ml Vial) 30 mg IV-PUSH Q6HPRN PRN Reason: Pain Scale 7 - 10 Stop: 11/11/22 12:51 Last Admin: 11/07/22 04:21 Dose: 30 mg Lisinopril (Lisinopril 20 Mg Tablet) 20 mg PO DAILY@0600 [facility] Stop: 11/06/23 08:59 Last Admin: 11/08/22 07:00 Dose: 20 mg Magnesium Hydroxide (Magnesium Hydroxide Susp 30 Ml Udc) 30 ml PO DAILY PRN PRN Reason: Constipation Stop: 11/07/23 07:44 Methylprednisolone Sodium Succinate (Methylprednisolone Sod Succ/Pf 40 Mg/Ml (1ml) Vial) 40 mg IV-PUSH Q8HR [facility] Stop: 11/05/23 13:59 Last Admin: 11/08/22 07:00 Dose: 40 mg Metoprolol Tartrate (Metoprolol Tartrate 5 Mg/5 Ml Vial) 5 mg IV-PUSH Q5M PRN PRN Reason: Tachyarrhythmias Last Admin: 11/07/22 05:25 Dose: 5 mg Nicotine (Nicotine Patch 21 Mg/24hr 1 Each Patch.Td24) 1 each TRANSDERML DAILY PRN PRN Reason: Nicotine Cravings Stop: 12/16/22 09:01 Pantoprazole Sodium (Pantoprazole 40 Mg Vial) 40 mg IV-PUSH DAILY [facility] Stop: 11/08/23 08:59 Potassium Chloride (Potassium Chloride Er 20 Meq Tab.Er.Prt) 40 meq PO DAILY PRN PRN Reason: Hypokalemia Stop: 11/05/23 06:40 Last Admin: 11/05/22 08:43 Dose: 40 meq Sennosides (Sennosides Syrup 8.8 Mg/5 Ml Udc) 8.8 mg PO BID [facility] Stop: 11/07/23 08:59 Last Admin: 11/07/22 21:56 Dose: 8.8 mg Sodium Chloride (Sodium Chloride 0.9 % 10 Ml Syringe) 0 ml IV-PUSH QSHIFT [facility] Stop: 11/05/23 05:59 Last Admin: 11/08/22 07:00 Dose: 40 ml Sodium Chloride (Sodium Chloride 0.9 % 10 Ml Syringe) 10 ml IV-PUSH PRN PRN PRN Reason: Flush Stop: 11/07/23 08:37 Sodium Chloride (Sodium Chloride 0.9 % 10 Ml Vial.Pf) 10 ml INJECTION DAILY [facility] Stop: 11/08/23 08:59 Tizanidine HCl (Tizanidine 4 [...] signed by MD Sanjay Holt> 11/08/[address] [facility] Work Phone: [phone] 140-775905-02-2023 Progress note Author Rubi Ramos [facility] November 08, 2022 1:26am Note Date/Time November 07, 2022 4:20pm [facility] [address] [place] [address] Hospitalist Progress Note Signed Patient: Lori Anton MR#: [id number] : 1965 Acct:[id number] Age/Sex: 57 / M Adm Date: 3 Loc: Room: [address] [place] [address] Type: ADM IN Attending Dr: Rubi Ramos [...] Tablet PO 11/05/23 08:59 10 mg DAILY@0600 [facility] Administration Budesonide 0.5 mg 11/05/22 11:40 11/06/22 [...] 1,000 Ml IV 11/07/23 09:59 75 mls/hr .[id number] [facility] Administration Cisatracurium Besylate 200 mg/ 200 mls @ 12.6 mls/hr 11/07/22 10:30 11/07/22 10:57 Dextrose IV 11/07/23 10:29 1.5 mcg/kg/min .[id number] [facility] 9.45 mls/hr Administration Protocol 2 MCG/KG/MIN Ketorolac Tromethamine 30 mg 11/06/22 12:52 11/07/22 04:21 Ketorolac Tromethamine 30 Mg/Ml Vial IV-PUSH 11/11/22 12:51 30 mg Q6H PRN Administration Pain Scale 7 - 10 Lisinopril 20 mg 11/07/22 06:00 11/07/22 06:37 Lisinopril 20 Mg Tablet PO 11/06/23 08:59 20 mg DAILY@0600 [facility] Administration Magnesium Hydroxide 30 ml 11/07/22 07:45 [...] signed by Rubi Ramos MD> 11/08/[address] [facility] Work Phone: [phone] 500-336005-01-2023 Progress note Author Ismael Huitron [facility] November 07, 2022 2:05pm Note Date/Time November 07, 2022 1:56pm [facility] [address] [place] [address] Pulmonology Progress Note Signed Patient: Lori Anton MR#: [id number] : 1965 Acct:[id number] Age/Sex: 57 / M Adm Date: 3 Loc: Room: [address] [place] [address] Type: ADM IN Attending Dr: Rubi Ramos MD Copies to: ~ Date of Service: 11/07/2022 Subjective Subjective Narrative: Patient developed progressive respiratory distress overnight associated with right-sided pleuritic pain, due to severe hypoxia and work of breathing, patientwas intubated by nurse boat joiner this morning, immediately following that and with [...] signed by Ismael Huitron MD> 11/07/[address] [facility] Work Phone: [phone] 431-664805-01-2023 [facility]23 History general Narrative - Reported* Type Description Date Medical History htn Medical History arthritis Medical History anxiety Hospitalization History [facility] [place] 11/2022 [employer] Other 05-01-2023 Consult note Author Sanjay Holt [facility] November 07, 2022 9:23am Note Date/Time November 07, 2022 9:11am [facility] [address] [place] [address] Infect. Disease Consult Note Signed Patient: Lori Anton MR#: [id number] : 1965 Acct:[id number] Age/Sex: 57 / M Adm Date: 3 Loc: Room: [address] [place] [address] Type: ADM IN Attending Dr: Netta Wiseman MD Copies to: Shaista Corona, CONSTRUCTION ADMINISTRATOR-C MD Netta Montez MD~ HPI Data of Consult Consult date: 11/07/22 Requesting Physician: Netta Wiseman MD Primary Care Provider: Shaista Corona Consult Narrative History of present illness: Mr. Anton is a 57 year old male who is currently intubated and sedated on the ventilator. He had been at [facility] prior to coming to [facility] and was centerspecifically to have a bronchoscopy performed. He has pneumonia that PCR panel from [facility] did not yield any targets but respiratory [...] 10 Mg Tablet) 10 mg PO DAILY@0600 [facility] Stop: 11/05/23 08:59 Last Admin: 11/07/22 06:36 Dose: 10 mg Budesonide (Budesonide 0.5 Mg/2 Ml Ampul.Neb) 0.5 mg INHALATION BID [facility] Stop: 11/05/23 11:39 Last Admin: 11/06/22 20:43 Dose: 0.5 mg Buprenorphine HCl (Buprenorphine Hcl 2 Mg Tab.Subl) 2 mg SUBLINGUAL BID@0600,1800 [facility] Stop: 05/06/23 05:59 Last Admin: 11/07/22 06:38 Dose: 2 mg Carvedilol (Carvedilol 12.5 Mg Tablet) 12.5 mg PO BID@0600,1800 [facility] Stop: 11/06/23 20:59 Last Admin: 11/07/22 06:37 Dose: 12.5 mg Docusate Sodium (Docusate Liquid 100 Mg/10 Ml Udc) 100 mg OG-TUBE BID [facility] Stop: 11/07/23 08:59 Enoxaparin Sodium (Enoxaparin 40 Mg/0.4 Ml Syringe) 40 mg SUBCUT DAILY@1000 [facility] Stop: 11/06/23 09:59 Last Admin: 11/06/22 09:09 Dose: 40 mg Fluoxetine HCl (Fluoxetine Soln 20 Mg/5 Ml) 40 mg PO HS [facility] Stop: 11/07/23 21:59 Fluoxetine HCl (Fluoxetine Soln 20 Mg/5 Ml) 20 mg PO DAILY@0600 [facility] Stop: 11/08/23 05:59 Guaifenesin (Guaifenesin 600 Mg Tab.Er.12h) 1,200 mg PO BID [facility] Stop: 11/06/23 12:54 Last Admin: 11/06/22 20:51 Dose: 1,200 mg Levofloxacin (Levaquin) 750 mg in 150 mls @ 100 mls/hr IV Q24H [facility] Last Admin: 11/06/22 21:00 Dose: 100 mls/hr Clindamycin Phosphate (Cleocin) 600 mg in 50 mls @ 100 mls/hr IV Q8H [facility] Last Admin: 11/07/22 02:14 Dose: 100 mls/hr Fentanyl (Fentanyl 1,000 Mcg/100 Ml D5w) 1,000 mcg in 100 mls @ 2.5 mls/hr IV .Q24H [facility]; Protocol Propofol (Diprivan) 1,000 mg in 100 mls @ 12.6 mls/hr IV .Q7H57M [facility]; Protocol Stop: 11/07/23 07:59 Ketorolac Tromethamine (Ketorolac Tromethamine 30 Mg/Ml Vial) 30 mg IV-PUSH Q6HPRN PRN Reason: Pain Scale 7 - 10 Stop: 11/11/22 12:51 Last Admin: 11/07/22 04:21 Dose: 30 mg Lisinopril (Lisinopril 20 Mg Tablet) 20 mg PO DAILY@0600 [facility] Stop: 11/06/23 08:59 Last Admin: 11/07/22 06:37 Dose: 20 mg Magnesium Hydroxide (Magnesium Hydroxide Susp 30 Ml Udc) 30 ml PO DAILY PRN PRN Reason: Constipation Stop: 11/07/23 07:44 Methylprednisolone Sodium Succinate (Methylprednisolone Sod Succ/Pf 40 Mg/Ml (1ml) Vial) 40 mg IV-PUSH Q8HR [facility] Stop: 11/05/23 13:59 Last Admin: 11/07/22 06:39 Dose: 40 mg Metoprolol Tartrate (Metoprolol Tartrate 5 Mg/5 Ml Vial) 5 mg IV-PUSH Q5M PRN PRN Reason: Tachyarrhythmias Last Admin: 11/07/22 05:25 Dose: 5 mg Nicotine (Nicotine Patch 21 Mg/24hr 1 Each Patch.Td24) 1 each TRANSDERML DAILY PRN PRN Reason: Nicotine Cravings Stop: 12/16/22 09:01 Pantoprazole Sodium (Pantoprazole 40 Mg Vial) 40 mg IV-PUSH DAILY [facility] Stop: 11/08/23 08:59 Potassium Chloride (Potassium Chloride Er 20 Meq Tab.Er.Prt) 40 meq PO DAILY PRN PRN Reason: Hypokalemia Stop: 11/05/23 06:40 Last Admin: 11/05/22 08:43 Dose: 40 meq Sennosides (Sennosides Syrup 8.8 Mg/5 Ml Udc) 8.8 mg PO BID [facility] Stop: 11/07/23 08:59 Sodium Chloride (Sodium Chloride 0.9 % 10 Ml Syringe) 0 ml IV-PUSH QSHIFT [facility] Stop: 11/05/23 05:59 Last Admin: 11/06/22 14:30 Dose: 10 ml Sodium Chloride (Sodium Chloride 0.9 % 10 Ml Syringe) 10 ml IV-PUSH PRN PRN PRN Reason: Flush Stop: 11/07/23 08:37 Sodium Chloride (Sodium Chloride 0.9 % 10 Ml Vial.Pf) 10 ml INJECTION DAILY [facility] Stop: 11/08/23 08:59 Tizanidine HCl (Tizanidine 4 [...] 50 ml @ 100 mls/hr IV Q8H [facility] Rx#:[id number] Oral 680 / 1480 500 / 500 [...] cultures remain negative. Respiratory PCR panel at [facility] without targeted pathogen but parainfluenza 3 virus targeted here. Will check antibodies to Legionella and urine antigen for Legionella and Streptococcus. Documented By: Sanjay Holt MD 11/07/22 09 Signed By: <Electronically signed by MD Sanjay Holt> 11/07/[address] [facility] Work Phone: [phone]) [phone] [facility] Progress note Author Kaylee Mclaughiln [facility] November 06, 2022 4:09pm Note Date/Time November 06, 2022 4:1 0pm [facility] [address] [place] [address] Pulmonology Progress Note Signed Patient: Lori Anton MR#: [id number] : 1965 Acct:[id number] Age/Sex: 57 / M Adm Date: 3 Loc: 4 Room: [address] [place] [address] Type: ADM IN Attending Dr: Netta Wiseman [...] No deformity. -Skin: No rash. Slightly diaphoretic. -CAR CONDITIONER: Alert and oriented x3, no focal deficits. [...] as the CT angiogram was done at [facility] and no disc was sent with records. We did call [facility] and requested chest CTA imaging. -Chest CT [...] Plan: -Per chest CTA report done at [facility], there is evidence of 2.6 cm right hilar lymph node compressing the right lower lobe bronchus leading to right lower lobe atelectasis . - Again, the CTA film is not available for my review at this time, this was requested from [facility]. However this is concerning for primary lung [...] undiagnosed COPD Plan -Patient was sent from [facility] to [facility] after hewas told he needed bronchoscopy. -Repeat [...] signed by Kaylee Mclaughlin MD> 11/06/[address] [facility] Work Phone: 1(996) 305-416704-30-2023 Progress note Author Netta Wiseman [facility] November 06, 2022 8:49am Note Date/Time November 06, 2022 8:4 9am [facility] [address] [place] [address] Hospitalist Progress Note Signed Patient: Lori Anton MR#: [id number] : 1965 Acct:[id number] Age/Sex: 57 / M Adm Date: 3 Loc: Room: [address] [place] [address] Type: ADM IN Attending Dr: Netta Wiseman [...] Albuterol Neb 2.5 Mg/3 Ml Vial.Neb INHALATION 04/28/24 03:35 Q3H PRN Cough/Wheeze Albuterol/Ipratropium 3 ml [...] signed by Netta Wiseman MD> 11/06/[address] [facility] Work Phone: [phone] Consult note Author Kaylee Mclaughlin [facility] November 05, 2022 12:45pm Note Date/Time November 05, 2022 12: 05pm [facility] [address] [place] [address] Pulmonology Consult Note Signed Patient: Lori Anton MR#: [id number] : 1965 Acct:[id number] Age/Sex: 57 / M Adm Date: 3 Loc: Room: [address] [place] [address] Type: ADM IN Attending Dr: Netta Wiseman MD Copies to: Shaista Corona, CONSTRUCTION ADMINISTRATOR-C MD Netta Pillai MD~ HPI Date/Time of Consultation: Date of Service: 11/05/2022 Time of Service: 11:45 Consulting Provider: Kaylee Mclaughlin Requesting Provider: Netta Wiseman Reason for Consult: Acute hypoxemic respiratory failure, right lower lobe atelectasis History of Present Illness History of present illness: Mr. Anton is a 57 year old male with more than 08-naaa-wnzp smoking history whosmokes a pack a day, history of hypertension and arthritis was transferred from [facility] last night for acute hypoxic respiratory failure [...] the visit to the emergency room at [facility] however due to no pulmonary conservation engineer [facility]. Patient tells me he smokes [...] No recent travel. Chest CT angiogram at [facility] reported negative for PE, showed multifocal groundglass [...] No deformity. Skin: No rash. Slightly diaphoretic. CAR CONDITIONER: Alert and oriented x3, no focal deficits. [...] as the CT angiogram was done at [facility] and no disc was sent with records. We did call [facility] and requested chest CTA imaging. -Start high flow nasal cannula with flow rate 40 L/min and FiO2 60% -Titrate FiO2 as needed for target SPO2> 90% -Potential underlying chronic obstructive of pulmonary disease, treat with nebulized short acting bronchodilators, budesonide, and systemic corticosteroids (2) Hilar lymphadenopathy: Plan: -Per chest CTA report done at [facility], there is evidence of 2.6 cm right hilar lymph node compressing the right lower lobe bronchus leading to right lower lobe atelectasis . - Again, the CTA film is not available for my review at this time, this was requested from [facility]. However this is concerning for primary lung [...] signed by Kaylee Mclaughlin MD> 11/05/[address] [facility] Work Phone: [phone]) [phone] Progress note Author Netta Wiseman [facility] November 05, 2022 9:09am Note Date/Time November 05, 2022 9:0 9am [facility] [address] [place] [address] Event Note Signed Patient: Lori Anton MR#: [id number] : 1965 Acct:[id number] Age/Sex: 57 / M Adm Date: 3 Loc: Room: [address] [place] [address] Type: ADM IN Attending Dr: Netta Wiseman [...] Suspect obstructive pneumonia. CT scan done at [facility] did not show any pulmonary embolism. Patient [...] <Electronically signed by Netta Wiseman MD> 11/05/22908 [facility] Work Phone: [phone]) 383-464404-29-2023 History and physical note Author Derek Alex [facility] November 05, 2022 6:38am Note Date/Time November 05, 2022 4:0 0am [facility] [address] [place] [address] Hospitalist H&P Signed with Cj Patient: Lori Anton MR#: [id number] : 1965 Acct:[id number] Age/Sex: 57 / M Adm Date: 3 Loc: Room: [address] [place] [address] Type: ADM IN Attending Dr: Derek Alex MD Copies to: MD Shaista Bustamante, CONSTRUCTION ADMINISTRATOR-C Annabel Boo, ASSOCIATE ENGINEER~ ADDENDUM1 I personally saw this patient on the day of the encounter, reviewed the history,performed the borrego elements of the exam and formulated the plan of care and confirmed the nurse practitioners/residents/internal combustion engine subassembler written note. Addendum Documented By: Derek Alex MD 11/05/22 0637 Addendum Signed By: <Electronically signed by Derek Alex MD> 11/05/22 0637 HPI DATE OF EXAMINATION: 11/05/22 CHIEF COMPLAINT: fever, cough, right sided chest pain HISTORY OF PRESENT ILLNESS: Mr. Anton is a 57-year-old male with a PMH of HTN, arthritis that presented to the [facility] emergency room for fever, cough, and right- sided chest pain. Patient seen and evaluated upon transfer at bedside, at bedside. [facility] hospital work-up with a positive [...] the day decided to go to the [facility] emergency room and then hewas transferred here. [...] unless noted in the HPI or below. [facility] Attestation Statement: The following information was validated [...] signed by Derek Alex MD> 11/05/22 0635 [facility] Work Phone: [phone]) [phone] Evaluation note* Encounter Date Diagnosis Assessment Notes [...] care provider if no improvement of symptoms. [employer] Other Evaluation note* Diagnosis Onset Date Resolution Status Acute hypoxemic respiratory failure acute Atelectasis acute Community acquired pneumonia acute Fever acute Hilar lymphadenopathy acute HTN (hypertension) acute Nicotine dependence acute Parainfluenza acute Tension pneumothorax acute [facility] Work Phone: Evaluation noteNo assessment information available [facility] Work Phone: Evaluation note* Diagnosis [...] cough- Primary [facility] this encounter [facility] [...] Benign prostatic hyperplasia with weak urinary stream Pulmonary infiltrate on chest x-ray- Primary documented in this encounter [facility] [...] Benign prostatic hyperplasia with weak urinary stream Pulmonary infiltrate on chest x-ray- Primary Primary hypertension (CMS/HCC) Unspecified essential hypertension Benign prostatic hyperplasia with weak urinary stream BMI 25.0-25.9,adult Anxiety Anxiety state, unspecified Tobacco user Tobacco use disorder documented in [...] Benign prostatic hyperplasia with weak urinary stream Pulmonary infiltrate on chest x-ray- Primary Primary hypertension (CMS/HCC) Unspecified essential hypertension Benign prostatic hyperplasia with weak urinary stream BMI 25.0-25.9,adult Anxiety Anxiety state, unspecified Tobacco user Tobacco use disorder Rash- Primary Rash and other nonspecific skin eruption documented in this encounter [facility] general Narrative - Reported* Type Description Date Medical History htn Medical History arthritis Medical History anxiety [facility] [employer] Other History of Present illness Narrative* Shaista Corona, CONSTRUCTION ADMINISTRATOR - 02/29/2024 10:00 AM EDT Images from [...] of the risks of continued smoking: stroke, KS, all forms of cancer, lung disease, and [...] 02/29/2024 9:05 AM EDTAssociated Problem(s): HTN (hypertension) (CMS/HCC) Stable blood pressure No [...] artery calcium score test Hand out on [facility] program and order * Shaista Corona NP - 02/29/2024 9:03 AM EDTAssociated Problem(s): Tobacco user The patient has been advised of the risks of continued smoking: stroke, KS, all forms of cancer, lung disease, and [...] 6:48 AM EDTAssociated Problem(s): Opioid abuse, uncomplicated (CMS/HCC) Continue with suboxone documented in this [facility]NOTwo [facility] Ambulatory Orders* Initiate Home Health [...] can [facility] right chest sutures in [address] [facility] Work Phone: Hospital Discharge instructions Additional Instructions Avoid smoking Push fluids Rest Follow with your PCP Return here if any problems persist or worsen include chest pain, shortness of breath or any other concernMer[facility] Work Phone: Summary Purpose Family [...] section and content) DATE CREATED AUTHOR 12/19/2018 [facility] DATE CREATED AUTHOR AUTHOR'S ORGANIZ ATION 11/11/2022 [facility] DATE CREATED AUTHOR AUTHOR'S ORGANIZ ATION 10/04/2023 [facility] DATE CREATED AUTHOR AUTHOR'S ORGANIZ ATION 08/28/2024 [facility] EPIC DATE CREATED AUTHOR AUTHOR'S ORGANIZ ATION 12/13/2024 [employer] [facility] REASON FOR VISIT (unrecogniz ed section and content) Reason Comments Med Refill Reason Comments Leg Pain Reason Comments Anxiety Care Teams (unrecognized sec tion and content) [...] Primary Care Provider Active Evi Gay APRN ACN- Attending Provider Active Team Status: Inactive Member Role Status Dates Shaista Corona Primary Care Provider Active Sta rt: July 31, 2023 End: July 31, 2023 jE Garcia PA-C Emergency Provider Active Start: July 31, 2023 End: July 31, 2023 Personnel Associate Relationship Specialty Start Date End Date Celestino Cooper MD [address] [place] [id number] PCP - General Family Medicine 08/23/23 Shaista Corona NP [address] [place] [address] Referring Physician Nurse Practitioner 01/25/23 Personnel Associate Relationship Specialty Start Date End Date Celestino Cooper MD [address] [place] [address] PCP - General Family Medicine 08/23/23 Shaista Corona NP [address] [place] [address] Referring Physician Nurse Practitioner 01/25/23 Personnel Associate Relationship Specialty Start Date End Date Celestino Cooper MD [address] [place] [address] PCP - General Family Medicine 08/23/23 Shaista Corona NP [address] [place] [address] Referring Physician Nurse Practitioner 01/25/23 Personnel Associate Relationship Specialty Start Date End Date Celestino Cooper MD [address] [place] [phone] PCP - General Family Medicine 08/23/23 Shaista Corona NP [address] [place] [address] Referring Physician Nurse Practitioner 01/25/23 Personnel Associate Relationship Specialty Start Date End Date Celestino Cooper MD [address] [place] [address] PCP - General Family Medicine 08/23/23 Shaista Corona NP [address] [place] [address] Referring Physician Nurse Practitioner 01/25/23 Personnel Associate Relationship Specialty Start Date End Date Celestino Cooper MD [address] [place] [address] PCP - General Family Medicine 08/23/23 Shaista Corona NP [address] [place] [address] Referring Physician Nurse Practitioner 01/25/23 Personnel Associate Relationship Specialty Start Date End Date Celestino Cooper MD [address] [place] [address] PCP - General Family Medicine 08/23/23 Shaista Corona NP [address] [place] [address] Referring Physician Nurse Practitioner 01/25/23 Personnel Associate Relationship Specialty Start Date End Date Celestino Cooper MD [address] [place] [address] PCP - General Family Medicine 08/23/23 Shaista Corona NP [address] [place] [address] Referring Physician Nurse Practitioner 01/25/23 Personnel Associate Relationship Specialty Start Date End Date Celestino Cooper MD [address] [place] [address] PCP - General Family Medicine 08/23/23 Shaista Corona NP [address] [place] [address] Referring Physician Nurse Practitioner 01/25/23 Personnel Associate Relationship Specialty Start Date End Date Celestino Cooper MD [address] [place] [address] PCP - General Family Medicine 08/23/23 Shaista Corona NP [address] [place] [address] Referring Physician Nurse Practitioner 01/25/23 Personnel Associate Relationship Specialty Start Date End Date Celestino Cooper MD [address] [place] [address] PCP - General Family Medicine 08/23/23 Shaista Corona NP [address] [place] [address] Referring Physician Nurse Practitioner 01/25/23 Personnel Associate Relationship Specialty Start Date End Date Celestino Cooper MD [address] [place] [address] PCP - General Family Medicine 08/23/23 Shaista Corona NP [address] [place] [address] Referring Physician Nurse Practitioner 01/25/23 Personnel Associate Relationship Specialty Start Date End Date Celestino Cooper MD [address] [place] [phone] PCP - General Family Medicine 08/23/23 Shaista Corona NP [address] [place] [phone] Referring Physician Nurse Practitioner 01/25/23 Personnel Associate Relationship Specialty Start Date End Date Celestino Cooper MD [address] [place] [phone] PCP - General Family Medicine 08/23/23 Shaista Corona NP [address] [place] [phone] Referring Physician Nurse Practitioner 01/25/23 Personnel Associate Relationship Specialty Start Date End Date Celestino Cooper MD [address] [place] [phone] PCP - General Family Medicine 08/23/23 Shaista Corona NP [address] [place] [phone] Referring Physician Nurse Practitioner 01/25/23 Personnel Associate Relationship Specialty Start Date End Date Celestino Cooper MD [address] [place] [phone] PCP - General Family Medicine 08/23/23 Shaista Corona NP [address] [place] [phone] Referring Physician Nurse Practitioner 01/25/23 Personnel Associate Relationship Specialty Start Date End Date Celestino Cooper MD [address] [place] [phone] PCP - General Family Medicine 08/23/23 Shaista Corona NP [address] [place] [phone] Referring Physician Nurse Practitioner 01/25/23 Personnel Associate Relationship Specialty Start Date End Date Celestino Cooper MD [address] [place] [phone] PCP - General Family Medicine 08/23/23 Shaista Corona NP [address] [place] [phone] Referring Physician Nurse Practitioner 01/25/23 Personnel Associate Relationship Specialty Start Date End Date Celestino Cooper MD [address] [place] [phone] PCP - General Family Medicine 08/23/23 Shaista Corona NP [address] [place] [phone] PCP - [facility] 10/08/24 Shaista Corona NP [address] [place] [phone] Referring Physician Nurse Practitioner 01/25/23 Personnel Associate Relationship Specialty Start Date End Date Celestino Cooper MD [address] [place] [phone] PCP - General Family Medicine 08/23/23 Shaista Corona NP [address] [place] [phone] PCP - [facility] 10/08/24 Shaista Corona NP [address] [place] [id number] Referring Physician Nurse Practitioner 01/25/23 Goals (unrecognized [...] BE BASED ON THE PRIMARY CLINICAL RECORDS. [employer] [facility]. provides no warranty or guarantee of the accuracy or completeness of information in this document.
== END 2025-03-13 09:31 | disposition home or self-care (01) ==
LOC: RAD 09:31
PROVIDERS: PCP Nurse Practitioner; Visit Provider Nurse Practitioner
DX: R05.9 Cough, unspecified (principal); R06.09 Other forms of dyspnea
CPT/HCPCS: 71046